=== PATIENT | female | born 1940 | race Caucasian/White ===

== ENCOUNTER 2017-02-03 02:04 | Emergency (ER) | payer OTHER ==
[~2017-02-03] VITALS: Ht 167.6 cm; Wt 89.9 kg
[~2017-02-03 02:04] MED LIST: ALPR-411 PO; CRD200 PO; EFFSR150 PO; FLUT1INH INH; LEVO88TA3 PO; OXYC1TAB3 PO; SNG10 PO; TOPI25TA99 PO; TPM25 PO; VNTHFA/IN INH; WARF4TAB43 PO
[2017-02-03 02:10] VITALS: TEMP 36.4; Ht 167.6 cm; Wt 89.9 kg
[2017-02-03] MEDS ORDERED: ONDANSETRON INJ 2 MG/ML 2 ML VIAL IV STA (02:27)
[2017-02-03] MEDS ORDERED: MoRPHine SULFATE 4 MG/ML 1 ML CARP\\VIAL IV STA (02:27)
--- NOTE | 2017-02-03 02:28 | EMERGENCY ROOM VISIT NOTE ---
History Report prepared by Violet: Kwame Cabrera Under the Supervision of: Dr. Pritesh Bernabe D.O. First contact with patient: 02:17 Chief Complaint: FLANK PAIN Stated Complaint: BACK AND SIDE PAIN History of Present Illness The patient is a 76 year old female who presents to the Emergency Room with complaints of constant right sided flank pain that began yesterday, one day prior to arrival. She rates her current pain as a 8/10 in severity. The patient states that the pain radiates into her right lower abdominal quadrants. She is also complaining of experiencing some nausea throughout the day today. She denies any blood in the urine, or any vomiting lately. She also denies any history of kidney disease or abdominal aortic aneurysm. 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 A total of ten systems were reviewed and were otherwise negative. Past Medical & Surgical Medical Problems: (1) ARF (acute renal failure) (2) Asthma, moderate persistent (3) Atrial fibrillation and flutter (4) CKD (chronic kidney disease), stage III (5) Depression (6) Diet-controlled diabetes mellitus (7) HTN (hypertension) (8) Hypothyroidism (9) Meniere disease (10) RADHA (obstructive sleep apnea) Surgical Problems: (1) H/O sinus surgery (2) History of laminectomy (3) History of repair of left rotator cuff (4) Hx of neck surgery Family History Diabetes mellitus Social History Smoking Status: Former Smoker Alcohol Use: none Drug Use: none Marital Status: Housing Status: lives with family Occupation Status: employed Current/Historical Medications Scheduled Amiodarone HCl (Amiodarone HCl), 200 MG PO QAM Ferrous Sulfate (Ferrous Sulfate), 325 MG PO DAILY Fluticasone Furoate-Vilanterol (Breo Ellipta), 1 PUFF INH DAILY Folic Acid (Folvite), 1 MG PO DAILY Lansoprazole (Prevacid), 30 MG PO HS Levothyroxine Sodium (Levothyroxine Sodium), 88 MCG PO QAM Montelukast Sod (Montelukast Sodium), 10 MG PO QAM Topiramate (Topamax ), 25 MG PO QAM Topiramate (Topiramate), 12.5 MG PO HS Venlafaxine Hcl (Effexor Extended Rel), 150 MG PO QAM Warfarin Sodium (Warfarin Sodium), 2 MG PO DAILY Scheduled PRN Albuterol Hfa (Ventolin Hfa), 2 PUFFS INH QID PRN for SOB/Wheezing Alprazolam (Alprazolam), 0.5 MG PO TID PRN for Anxiety Allergies Coded Allergies: Sulfa Drugs (Verified Allergy, Severe, SEVERE REACTION, RASH AND HIVES, 08/10) Celecoxib (Verified Allergy, Unknown, Rash/Hives/Itching., 02/03/17) Cephalexin (Verified Allergy, Unknown, Rash/Hives/Itching., 02/03/17) Dexamethasone (Verified Allergy, Unknown, Steroid psychosis., 02/03/17) Furosemide (Verified Allergy, Unknown, Rash/Hives/Itching., 02/03/17) Gabapentin (Verified Allergy, Unknown, Rash/Hives/Itching., 02/03/17) Meclizine (Verified Allergy, Unknown, Unknown, 02/03/17) Methylprednisolone (Verified Allergy, Unknown, Rash/Hives/Itching., ) Penicillins (Verified Allergy, Unknown, Unknown., 02/03/17) Prednisone (Verified Allergy, Unknown, Rash/Hives/Itching., 02/03/17) Pregabalin (Verified Allergy, Unknown, Rash/Hives/Itching., 02/03/17) Vancomycin (Verified Allergy, Unknown, Jodi syn. ., 02/03/17) Physical Exam Vital Signs Date Time Temp Pulse Resp B/P (MAP) Pulse Ox O2 Delivery O2 Flow Rate FiO2 02/03/17 04:15 60 20 156/74 97 Room Air 02/03/17 03:34 63 15 94 02/03/17 03:23 173/85 02/03/17 03:10 63 02/03/17 03:04 63 17 97 02/03/17 02:10 36.4 65 16 187/80 99 Room Air Physical Exam GENERAL: Awake, alert, well-appearing, in no distress HENT: Normocephalic, atraumatic. Oropharynx unremarkable. EYES: Normal conjunctiva. Sclera non-icteric. NECK: Supple. No nuchal rigidity. FROM. No JVD. RESPIRATORY: Clear to auscultation. CARDIAC: Regular rate, normal rhythm. Extremities warm and well perfused. Pulses equal. ABDOMEN: Soft, non-distended. No tenderness to palpation. No rebound or guarding. No masses. RECTAL: Deferred. MUSCULOSKELETAL: Chest examination reveals no tenderness. The back is symmetrical on inspection without obvious abnormality. There is no CVA tenderness to palpation. No joint edema. LOWER EXTREMITIES: Calves are equal size bilaterally and non-tender. No edema. No discoloration. NEURO: Normal sensorium. No sensory or motor deficits noted. SKIN: No rash or jaundice noted. Medical Decision & Procedures ER Provider Diagnostic Interpretation: X ray results as stated below per my interpretation and radiologist interpretation. Other radiology results as stated below per my review and radiologist interpretation CT ABDOMEN & PELVIS: Noncontrast study Prior head CT , 02/18/16 No obstructing urinary tract calculi or hydronephrosis. Stable bilateral renal lesions, most are low-density. Normal appendix. Colonic diverticulosis. No free air, free fluid. No bowel obstruction. Query sludge in the gallbladder. Lumbar laminectomies as on prior Radiologist: Martha Martínez M.D. Laboratory Results 02/03/17 02:45 Red Blood Count 4.14, Mean Corpuscular Volume 84.5, Mean Corpuscular Hemoglobin 27.1, Mean Corpuscular Hemoglobin Concent 32.0, Mean Platelet Volume 9.8, Neutrophils (%) (Auto) 59.2, Lymphocytes (%) (Auto) 23.3, Monocytes (%) (Auto) 11.3, Eosinophils (%) (Auto) 5.6, Basophils (%) (Auto) 0.5, Neutrophils # (Auto ) 5.01, Lymphocytes # (Auto) 1.97, Monocytes # (Auto) 0.96, Eosinophils # (Auto ) 0.47, Basophils # (Auto) 0.04 02/03/17 02:45 Test 02/03/17 02:45 02/03/17 04:08 White Blood Count 8.46 K/uL (4.8-10.8) Red Blood Count 4.14 M/uL (4.2-5.4) Hemoglobin 11.2 g/dL (12.0-16.0) Hematocrit 35.0 % (37-47) Mean Corpuscular Volume 84.5 fL (80-100) Mean Corpuscular Hemoglobin 27.1 pg (25-34) Mean Corpuscular Hemoglobin Concent 32.0 g/dl (32-36) Platelet Count 260 K/uL (130-400) Mean Platelet Volume 9.8 fL (7.4-10.4) Neutrophils (%) (Auto) 59.2 % Lymphocytes (%) (Auto) 23.3 % Monocytes (%) (Auto) 11.3 % Eosinophils (%) (Auto) 5.6 % Basophils (%) (Auto) 0.5 % Neutrophils # (Auto) 5.01 K/uL (1.4-6.5) Lymphocytes # (Auto) 1.97 K/uL (1.2-3.4) Monocytes # (Auto) 0.96 K/uL (0.11-0.59) Eosinophils # (Auto) 0.47 K/uL (0-0.5) Basophils # (Auto) 0.04 K/uL (0-0.2) RDW Standard Deviation 45.6 fL (36.4-46.3) RDW Coefficient of Variation 14.8 % (11.5-14.5) Immature Granulocyte % (Auto) 0.1 % Immature Granulocyte # (Auto) 0.01 K/uL (0.00-0.02) Prothrombin Time 22.6 SECONDS (9.0-12.0) Prothromb Time International Ratio 2.0 (0.9-1.1) Anion Gap 10.0 mmol/L (3-11) Est Creatinine Clear Calc Drug Dose 31.8 ml/min Estimated GFR () 33.4 Estimated GFR (Non- 28.8 BUN/Creatinine Ratio 21.6 (10-20) Calcium Level 8.3 mg/dl (8.5-10.1) Total Bilirubin 0.2 mg/dl (0.2-1) Direct Bilirubin < 0.1 mg/dl (0-0.2) Aspartate Amino Transf (AST/SGOT) 23 U/L (15-37) Alanine Aminotransferase (ALT/SGPT) 23 U/L (12-78) Alkaline Phosphatase 154 U/L (45-117) Total Protein 7.2 gm/dl (6.4-8.2) Albumin 3.6 gm/dl (3.4-5.0) Urine Color YELLOW Urine Appearance CLOUDY (CLEAR) Urine pH 5.0 (4.5-7.5) Urine Specific [place] 1.018 (1.000-1.030) Urine Protein NEG (NEG) Urine Glucose (UA) NEG (NEG) Urine Ketones NEG (NEG) Urine Occult Blood 1+ (NEG) Urine Nitrite NEG (NEG) Urine Bilirubin NEG (NEG) Urine Urobilinogen NEG (NEG) Urine Leukocyte Esterase LARGE (NEG) Urine WBC (Auto) >30 /hpf (0-5) Urine RBC (Auto) 0-4 /hpf (0-4) Urine Hyaline Casts (Auto) 1-5 /lpf (0-5) Urine Epithelial Cells (Auto) >30 /lpf (0-5) Urine Bacteria (Auto) NEG (NEG) Laboratory results reviewed by me Medications Administered Medications (Trade) Dose Ordered Sig/Felipe Route Start Time Stop Time Status Last Admin Dose Admin Ondansetron HCl (Zofran Inj) 4 mg NOW STAT IV 02/03/17 02:27 02/03/17 02:29 DC 02/03/17 02:53 4 MG Morphine Sulfate (MoRPHine SULFATE INJ) 4 mg NOW STAT IV 02/03/17 02:27 02/03/17 02:29 DC 02/03/17 02:53 4 MG Acetaminophen/ Hydrocodone Bitart ([place] 5/325 Tab) 1 tab NOW STAT PO 02/03/17 04:25 02/03/17 04:26 DC 02/03/17 04:33 1 TAB Ciprofloxacin (Cipro Tab) 500 mg NOW STAT PO 02/03/17 04:50 02/03/17 04:52 DC 02/03/17 04:58 500 MG ED Course 0222: The patient was evaluated in room A12B. A complete history and physical exam was performed. 0227: Ordered Morphine Sulfate 4 mg IV, Zofran 4 mg IV. 0425: Ordered Hydrocodone Bitart/Acetaminophen 1 tablet PO. 0450: Ordered Ciprofloxacin 500 mg PO. 0500: I reevaluated the patient at this time, she was resting in no distress. I discussed results and discharge instructions with her: She verbalized understanding and agreement. The patient is ready for discharge. Medical Decision Blood Pressure Screening: The patient was found to have a slightly elevated blood pressure due to pain and circumstances. I do not believe that the patient requires hypertension monitoring. Medication Reconciliation: I attest that I have personally reviewed the patient' s current medication list. Differential Diagnosis includes; kidney stone, pyelonephritis, urinary tract infection. Rule Out: abdominal aortic aneurysm. Patient resting in no distress on repeat examination patient has a urinary tract infection or CAT scan was negative she is on Coumadin and started Cipro on her due to multiple allergies as well as [place]. She is aware that Cipro can raise her Coumadin level and I've advised her to monitor that. Patient has no signs of an abdominal aortic aneurysm as well as no signs of pyelonephritis or appendicitis or ureterolithiasis at this time. Impression Primary Impression: Right flank pain Additional Impression: Urinary tract infection Scribe Attestation The scribe's documentation has been prepared under my direction and personally reviewed by me in its entirety. I confirm that the note above accurately reflects all work, treatment, procedures, and medical decision making performed by me. Departure Information Dispostion Home / Self-Care Prescriptions Ciprofloxacin Hcl (CIPRO) 500 Mg Tab 500 MG PO BID, #14 TAB Prov: Pritesh Bernabe, DO 02/03/17 Hydrocodone/Acetaminophen 5MG/325MG ([place] 5MG/325MG) Tab 1 TABLET PO Q6H Y for Pain, #10 TAB Prov: Pritesh Bernabe, DO 02/03/17 Referrals Florentin Calvo D.O. (PCP) Patient Instructions ED Flank Pain Uncertain Cause, ED UTI Cystitis Female, My [facility] Additional Instructions Take Cipro as instructed,watch your Coumadin level return for increased pain nausea vomiting fever or any concerns Problem Qualifiers
[2017-02-03 03:01] LABS: BASO % 0.5 %; BASO ABS # 0.04 K/uL (0-0.2); COMPLETE YES; EOS % 5.6 %; IG% 0.1 %; LYMPH % 23.3 %; LYMPH ABS # 1.97 K/uL (1.2-3.4); MEAN CELL VOLUME 84.5 fL (80-100); MEAN CORPUSCULAR HEMOGLOBIN 27.1 pg (25-34); MEAN PLATELET VOLUME 9.8 fL (7.4-10.4); MONO % 11.3 %; NEUT % 59.2 %; PLATELET COUNT 260 K/uL (130-400); RED BLOOD COUNT 4.14 M/uL (4.2-5.4); WHITE BLOOD COUNT 8.46 K/uL (4.8-10.8)
[2017-02-03 03:10] LABS: PROTHROMBIN TIME (PATIENT) 22.6 SECONDS (9.0-12.0)
[2017-02-03 03:24] LABS: ALT/SGPT 23 U/L (12-78); AST/SGOT 23 U/L (15-37); BLOOD UREA NITROGEN 37 mg/dl (7-18); BUN/CREATININE RATIO 21.6 (10-20); CALCIUM 8.3 mg/dl (8.5-10.1); CARBON DIOXIDE 23 mmol/L (21-32); CHLORIDE 111 mmol/L (98-107); GLUCOSE 106 mg/dl (70-99); POTASSIUM 4.4 mmol/L (3.5-5.1); SODIUM 144 mmol/L (136-145)
[2017-02-03] MEDS ORDERED: FOLI1TAB7 PO (03:25)
[2017-02-03] MEDS ORDERED: LANS30CA63 PO (03:25)
[2017-02-03] MEDS ORDERED: FRRS300 PO (03:25)
[2017-02-03 03:26] LABS: ALKALINE PHOSPHATASE 154 U/L (45-117)
[2017-02-03] MEDS ORDERED: HYDROCODONE/ACETAMOPHEN 5/325MG TAB PO STA (04:25)
[2017-02-03 04:28] LABS: URINE APPEARANCE CLOUDY (CLEAR); URINE BILIRUBIN NEG (NEG); URINE COLOR YELLOW; URINE EPITHELIAL CELL AUTO >30 /lpf (0-5); URINE NITRITE NEG (NEG); URINE SPECIFIC GRAVITY 1.018 (1.000-1.030); UROBILINOGEN NEG (NEG); ZZUR CULT IF INDIC CLEAN CATCH YES
[2017-02-03 04:29] LABS: MANUAL MICROSCOPIC REQUIRED? NO; REVIEW REQ? NO
[2017-02-03] MEDS ORDERED: CIPROFLOXACIN 500 MG TAB PO STA (04:50)
[2017-02-03] MEDS ORDERED: HYDR-5688 PO (05:06)
[2017-02-03] MEDS ORDERED: CIPR-255 PO (05:06)
[2017-02-03 05:32] VITALS: BP 171/72; PULSE 63; O2SAT 95
--- NOTE | 2017-02-03 06:57 | DIAGNOSTIC IMAGING REPORT ---
ABDOMEN AND PELVIS CT WITHOUT CONTRAST CT DOSE: 1316.89 mGy.cm HISTORY: Pain pain TECHNIQUE: Multiaxial CT images of the abdomen and pelvis were performed without the use of intravenous and oral contrast according to the standard department stone protocol. COMPARISON STUDY: 11/11/2014 FINDINGS: Lung bases are clear. Liver spleen and pancreas are unremarkable. Multiple bilateral renal cysts are present unchanged in the prior exam. No evidence for an obstructing urinary tract calculus. Mild fatty replacement of the pancreas. Nonobstructive bowel pattern. Bladder is midline. There are no contained calcifications. Nonobstructive bowel pattern. IMPRESSION: Several stable renal cysts. No evidence for an obstructing urinary tract calculus. Nonobstructive bowel pattern. Electronically signed by: Doe Cyr M.D. 02/03/2017 6:56 AM Dictated Date/Time: 02/03/2017 6:52 AM
[2017-02-19] MEDS ORDERED: PRED1SUS3 OPR (07:03)
[2017-06-18] MEDS ORDERED: TPRSR25 PO (14:52)
[2017-06-27] MEDS ORDERED: METO25TA3 PO (03:39)
[2017-06-27] MEDS ORDERED: TPRSR/25 PO (03:40)
== END 2017-02-03 05:33 | disposition home or self-care (01) ==
LOC: C.EDB 02:05 → C.EDA 05:33
DX: R10.84 Generalized abdominal pain (principal); N39.0 Urinary tract infection, site not specified; N17.9 Acute kidney failure, unspecified; J45.40 Moderate persistent asthma, uncomplicated; I48.91 Unspecified atrial fibrillation; N18.3 Chronic kidney disease, stage 3 (moderate); E11.9 Type 2 diabetes mellitus without complications; I10 Essential (primary) hypertension; E03.9 Hypothyroidism, unspecified; H81.09 Meniere's disease, unspecified ear; G47.33 Obstructive sleep apnea (adult) (pediatric); Z83.3 Family history of diabetes mellitus; Z87.891 Personal history of nicotine dependence; Z79.01 Long term (current) use of anticoagulants; Z51.81 Encounter for therapeutic drug level monitoring

== ENCOUNTER 2017-02-04 06:54 | Emergency (ER) | payer OTHER ==
[~2017-02-04] VITALS: Ht 167.6 cm; Wt 88.3 kg
[~2017-02-04 06:54] MED LIST changes: +CIPR-255 PO; +FOLI1TAB7 PO; +FRRS300 PO; +HYDR-5688 PO; +LANS30CA63 PO; -OXYC1TAB3 PO
[2017-02-04 06:59] VITALS: TEMP 36.4; Ht 167.6 cm; Wt 88.3 kg
[2017-02-04] MEDS ORDERED: MoRPHine SULFATE 4 MG/ML 1 ML CARP\\VIAL IV STA (07:20)
--- NOTE | 2017-02-04 07:27 | EMERGENCY ROOM VISIT NOTE ---
History Report prepared by Violet: Kwame Cabrera Under the Supervision of: Dr. Don Puentes D.O. First contact with patient: 07:04 Chief Complaint: FLANK PAIN Stated Complaint: PAIN RT SIDE INTO BACK AND FRONT History of Present Illness The patient is a 76 year old female who presents to the Emergency Room with complaints of persistent right lower flank pain that began on Friday, three days prior to arrival. The patient was in the Emergency Department on Friday, two days ago for similar complaints. She notes that her right flank pain is also radiating into her right lower abdominal quadrant. She notes that she is seeing a physician for acute renal failure. The patient is on Coumadin for atrial fibrillation. 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 A total of 10 systems reviewed and were otherwise negative. Past Medical & Surgical Medical Problems: (1) ARF (acute renal failure) (2) Asthma, moderate persistent (3) Atrial fibrillation and flutter (4) CKD (chronic kidney disease), stage III (5) Depression (6) Diet-controlled diabetes mellitus (7) HTN (hypertension) (8) Hypothyroidism (9) Meniere disease (10) RADHA (obstructive sleep apnea) Surgical Problems: (1) H/O sinus surgery (2) History of laminectomy (3) History of repair of left rotator cuff (4) Hx of neck surgery Family History Diabetes mellitus Social History Smoking Status: Never Smoker Alcohol Use: none Drug Use: none Marital Status: Housing Status: lives with family Occupation Status: employed Current/Historical Medications Scheduled Amiodarone HCl (Amiodarone HCl), 200 MG PO QAM Ciprofloxacin Hcl (Cipro), 500 MG PO BID Ferrous Sulfate (Ferrous Sulfate), 325 MG PO DAILY Fluticasone Furoate-Vilanterol (Breo Ellipta), 1 PUFF INH DAILY Folic Acid (Folvite), 1 MG PO DAILY Lansoprazole (Prevacid), 30 MG PO HS Levothyroxine Sodium (Levothyroxine Sodium), 88 MCG PO QAM Montelukast Sod (Montelukast Sodium), 10 MG PO QAM Topiramate (Topamax ), 25 MG PO QAM Topiramate (Topiramate), 12.5 MG PO HS Venlafaxine Hcl (Effexor Extended Rel), 150 MG PO QAM Warfarin Sodium (Warfarin Sodium), 2 MG PO DAILY Scheduled PRN Albuterol Hfa (Ventolin Hfa), 2 PUFFS INH QID PRN for SOB/Wheezing Alprazolam (Alprazolam), 0.5 MG PO TID PRN for Anxiety Hydrocodone/Acetaminophen 5MG/325MG ([place] 5MG/325MG), 1 TABLET PO Q6H PRN for Pain Allergies Coded Allergies: Sulfa Drugs (Verified Allergy, Severe, SEVERE REACTION, RASH AND HIVES, ) Celecoxib (Verified Allergy, Unknown, Rash/Hives/Itching., 02/04/17) Cephalexin (Verified Allergy, Unknown, Rash/Hives/Itching., 02/04/17) Dexamethasone (Verified Allergy, Unknown, Steroid psychosis., 02/04/17) Furosemide (Verified Allergy, Unknown, Rash/Hives/Itching., 02/04/17) Gabapentin (Verified Allergy, Unknown, Rash/Hives/Itching., 02/04/17) Meclizine (Verified Allergy, Unknown, Unknown, 02/04/17) Methylprednisolone (Verified Allergy, Unknown, Rash/Hives/Itching., ) Penicillins (Verified Allergy, Unknown, Unknown., 02/04/17) Prednisone (Verified Allergy, Unknown, Rash/Hives/Itching., 02/04/17) Pregabalin (Verified Allergy, Unknown, Rash/Hives/Itching., 02/04/17) Vancomycin (Verified Allergy, Unknown, Jodi syn. ., 02/04/17) Physical Exam Vital Signs Date Time Temp Pulse Resp B/P (MAP) Pulse Ox O2 Delivery O2 Flow Rate FiO2 02/04/17 09:02 60 16 144/79 94 Room Air 02/04/17 06:59 36.4 64 18 118/65 96 Room Air Physical Exam CONSTITUTIONAL/VITAL SIGNS: Reviewed / noted above. GENERAL: Non-toxic in appearance. INTEGUMENTARY: Warm, dry, and [place]. HEAD: Normocephalic. EYES: without scleral icterus or trauma. ENT/OROPHARYNX: clear and moist. LYMPHADENOPATHY/NECK: Is supple without lymphadenopathy or meningismus. RESPIRATORY: Lungs clear and equal. CARDIOVASCULAR: Regular rate and rhythm. GI/ABDOMEN: Soft and nontender. No organomegaly or pulsatile mass. No rebound or guarding. Normal bowel sounds. EXTREMITIES: Warm and well perfused. BACK: No CVA tenderness. NEUROLOGICAL: Intact without focal deficits. PSYCHIATRIC: normal affect. MUSCULOSKELETAL: Normally developed with good muscle tone. Medical Decision & Procedures Laboratory Results 02/04/17 07:30 Red Blood Count 4.33, Mean Corpuscular Volume 86.4, Mean Corpuscular Hemoglobin 27.3, Mean Corpuscular Hemoglobin Concent 31.6, Mean Platelet Volume 10.3, Neutrophils (%) (Auto) 58.9, Lymphocytes (%) (Auto) 23.4, Monocytes (%) (Auto) 10.7, Eosinophils (%) (Auto) 6.1, Basophils (%) (Auto) 0.6, Neutrophils # (Auto ) 3.98, Lymphocytes # (Auto) 1.58, Monocytes # (Auto) 0.72, Eosinophils # (Auto ) 0.41, Basophils # (Auto) 0.04 02/04/17 07:30 Test 02/04/17 07:30 White Blood Count 6.75 K/uL (4.8-10.8) Red Blood Count 4.33 M/uL (4.2-5.4) Hemoglobin 11.8 g/dL (12.0-16.0) Hematocrit 37.4 % (37-47) Mean Corpuscular Volume 86.4 fL (80-100) Mean Corpuscular Hemoglobin 27.3 pg (25-34) Mean Corpuscular Hemoglobin Concent 31.6 g/dl (32-36) Platelet Count 262 K/uL (130-400) Mean Platelet Volume 10.3 fL (7.4-10.4) Neutrophils (%) (Auto) 58.9 % Lymphocytes (%) (Auto) 23.4 % Monocytes (%) (Auto) 10.7 % Eosinophils (%) (Auto) 6.1 % Basophils (%) (Auto) 0.6 % Neutrophils # (Auto) 3.98 K/uL (1.4-6.5) Lymphocytes # (Auto) 1.58 K/uL (1.2-3.4) Monocytes # (Auto) 0.72 K/uL (0.11-0.59) Eosinophils # (Auto) 0.41 K/uL (0-0.5) Basophils # (Auto) 0.04 K/uL (0-0.2) RDW Standard Deviation 46.8 fL (36.4-46.3) RDW Coefficient of Variation 14.9 % (11.5-14.5) Immature Granulocyte % (Auto) 0.3 % Immature Granulocyte # (Auto) 0.02 K/uL (0.00-0.02) Anion Gap 11.0 mmol/L (3-11) Est Creatinine Clear Calc Drug Dose 33.5 ml/min Estimated GFR () 35.9 Estimated GFR (Non- 31.0 BUN/Creatinine Ratio 18.8 (10-20) Calcium Level 8.8 mg/dl (8.5-10.1) Total Bilirubin 0.3 mg/dl (0.2-1) Direct Bilirubin < 0.1 mg/dl (0-0.2) Aspartate Amino Transf (AST/SGOT) 22 U/L (15-37) Alanine Aminotransferase (ALT/SGPT) 24 U/L (12-78) Alkaline Phosphatase 131 U/L (45-117) Total Creatine Kinase 76 U/L (26-192) Creatine Kinase MB 1.3 ng/ml (0.5-3.6) Creatine Kinase MB Ratio 1.7 (0-3.0) Total Protein 7.2 gm/dl (6.4-8.2) Albumin 3.5 gm/dl (3.4-5.0) Lipase 89 U/L (73-393) Laboratory results as stated above per my review. Medications Administered Medications (Trade) Dose Ordered Sig/Felipe Route Start Time Stop Time Status Last Admin Dose Admin Morphine Sulfate (MoRPHine SULFATE INJ) 4 mg NOW STAT IV 02/04/17 07:20 02/04/17 07:24 DC 02/04/17 07:30 4 MG ED Course 0715: Previous medical records were reviewed. The patient was evaluated in room B2. A complete history and physical examination was performed. 07: Ordered Morphine Sulfate 4 mg IV. 0947: On reevaluation, the patient is resting in bed comfortably. I discussed the results and findings with the patient. She verbalized agreement of the treatment plan. The patient was discharged home. Medical Decision Differential diagnosis: Etiologies such as appendicitis, diverticulitis, PUD, biliary pathology, UTI, pancreatitis, obstruction, mesenteric ischemia, aortic pathology, infections, inflammatory bowel disease, renal colic, as well as others were entertained. This is a 76-year-old female who presents to the ED with a chief complaint of right-sided flank pain. The patient was seen for the same a little over 24 hours ago. At that time, she had a CBC, chemistry panel, urinalysis and a CAT scan of her abdomen. Culture for urine is pending. She was placed on Cipro and hydrocodone. The patient states that her pain continues. She came for reevaluation. The patient's exam was unremarkable. She did not have any rashes. She was told to watch out for a rash over the next 24-48 hours. She could have shingles. Her repeat blood work was unremarkable. Her CBC was normal. The BUN and creatinine are baseline. Metabolic panel was unremarkable. The patient was treated with IV morphine. She did have some improved pain management with this. She was told to follow-up with her PCP. Pain management may be beneficial. The patient was told to watch for rash over the next day or 2 and to see her doctor if she develops shingles. Impression Primary Impression: Right flank pain Scribe Attestation The scribe's documentation has been prepared under my direction and personally reviewed by me in its entirety. I confirm that the note above accurately reflects all work, treatment, procedures, and medical decision making performed by me. Departure Information Dispostion Home / Self-Care Referrals Florentin Calvo D.O. (PCP) Patient Instructions My [facility] Additional Instructions Follow-up with your doctors for continued symptoms. Pain management follow-up might be beneficial if pain persists. If you develop a rash, see your doctor for evaluation of shingles. Return for any concerns or worsening.
[2017-02-04 07:56] LABS: BASO % 0.6 %; BASO ABS # 0.04 K/uL (0-0.2); COMPLETE YES; EOS % 6.1 %; HEMATOCRIT 37.4 % (37-47); IG% 0.3 %; LYMPH % 23.4 %; LYMPH ABS # 1.58 K/uL (1.2-3.4); MEAN CELL VOLUME 86.4 fL (80-100); MEAN CORPUSCULAR HEMOGLOBIN 27.3 pg (25-34); MEAN CORPUSCULAR HGB CONC 31.6 g/dl (32-36); MEAN PLATELET VOLUME 10.3 fL (7.4-10.4); MONO % 10.7 %; NEUT % 58.9 %; PLATELET COUNT 262 K/uL (130-400); RED BLOOD COUNT 4.33 M/uL (4.2-5.4); WHITE BLOOD COUNT 6.75 K/uL (4.8-10.8)
[2017-02-04 08:12] LABS: CALCIUM 8.8 mg/dl (8.5-10.1)
[2017-02-04 08:13] LABS: ALT/SGPT 24 U/L (12-78); BLOOD UREA NITROGEN 30 mg/dl (7-18); BUN/CREATININE RATIO 18.8 (10-20); CARBON DIOXIDE 22 mmol/L (21-32); CHLORIDE 109 mmol/L (98-107); GLUCOSE 112 mg/dl (70-99); POTASSIUM 4.6 mmol/L (3.5-5.1); SODIUM 142 mmol/L (136-145)
[2017-02-04 08:18] LABS: ALKALINE PHOSPHATASE 131 U/L (45-117); AST/SGOT 22 U/L (15-37); CKMB/CK RATIO 1.7 (0-3.0)
[2017-02-04 09:59] VITALS: BP 130/67; PULSE 61; O2SAT 93
[2017-02-19] MEDS ORDERED: PRED1SUS3 OPR (07:03)
[2017-06-18] MEDS ORDERED: TPRSR25 PO (14:52)
[2017-06-27] MEDS ORDERED: METO25TA3 PO (03:39)
[2017-06-27] MEDS ORDERED: TPRSR/25 PO (03:40)
== END 2017-02-04 10:00 | disposition home or self-care (01) ==
LOC: C.EDB 06:56
DX: R10.30 Lower abdominal pain, unspecified (principal); I12.9 Hypertensive chronic kidney disease with stage 1 through stage 4 chronic kidney disease, or unspecified chronic kidney disease; N18.3 Chronic kidney disease, stage 3 (moderate); I48.92 Unspecified atrial flutter; E03.9 Hypothyroidism, unspecified; F32.9 Major depressive disorder, single episode, unspecified; I48.91 Unspecified atrial fibrillation; E11.9 Type 2 diabetes mellitus without complications; G47.33 Obstructive sleep apnea (adult) (pediatric); Z98.890 Other specified postprocedural states; Z79.01 Long term (current) use of anticoagulants; Z79.899 Other long term (current) drug therapy; Z88.0 Allergy status to penicillin; Z88.2 Allergy status to sulfonamides; Z88.8 Allergy status to other drugs, medicaments and biological substances; Z83.3 Family history of diabetes mellitus

== ENCOUNTER 2017-02-17 07:19 | Emergency (ER) | payer OTHER ==
[2017-02-17 07:27] VITALS: TEMP 36.4
[2017-02-17] MEDS ORDERED: SODIUM CHLORIDE 0.9% 1000ML 1,000 ML IV STA (07:33)
[2017-02-17] MEDS ORDERED: ONDANSETRON INJ 2 MG/ML 2 ML VIAL IV STA (07:33)
--- NOTE | 2017-02-17 07:35 | EMERGENCY ROOM VISIT NOTE ---
History Report prepared by Violet: Patricia Joe Under the Supervision of: Dr. Carlos Lizama D.O. First contact with patient: 07:25 Chief Complaint: ABDOMINAL PAIN Stated Complaint: STOMACH PAIN,NECK PAIN,SHOULDER PAIN DOWN LEFT ARM History of Present Illness The patient is a 76 year old female who presents to the Emergency Room with complaints of constant abdominal pain beginning 10 days prior to arrival. She rates her pain as 8/10 in severity. The patient was seen in the ED for this abdominal pain and was told had a UTI. She saw her PCP the next day and was told has no UTI but does have shingles. The patient states that her shingles rash did not appear until 5 days after the pain started. She is taking Oxycodone for the pain and Valtrex for the shingles. The patient notes a history of atrial fibrillation. She did experiencing neck pain that radiated into her eft arm pain last night. The patient denies nausea, vomiting, diarrhea , chest pain, trouble breathing, midline back pain, or abdominal surgery history. She is on Coumadin. Source of History: patient Onset: 10 days [employer] Position: abdomen Symptom Intensity: 8/10 Timing: constant Associated Symptoms: + neck pain, + rash, No chest pain, No nausea, No vomiting, No diarrhea Review of Systems See HPI for pertinent positives & negatives. A total of 10 systems reviewed and were otherwise negative. Past Medical & Surgical Medical Problems: (1) ARF (acute renal failure) (2) Asthma, moderate persistent (3) Atrial fibrillation and flutter (4) CKD (chronic kidney disease), stage III (5) Depression (6) Diet-controlled diabetes mellitus (7) HTN (hypertension) (8) Hypothyroidism (9) Meniere disease (10) RADHA (obstructive sleep apnea) Surgical Problems: (1) H/O sinus surgery (2) History of laminectomy (3) History of repair of left rotator cuff (4) Hx of neck surgery Family History Diabetes mellitus Social History Smoking Status: Never Smoker Alcohol Use: none Drug Use: none Marital Status: Housing Status: lives with family Occupation Status: employed Current/Historical Medications Scheduled Amiodarone HCl (Amiodarone HCl), 200 MG PO QAM Ciprofloxacin Hcl (Cipro), 500 MG PO BID Ciprofloxacin Hcl (Cipro), 500 MG PO BID Ferrous Sulfate (Ferrous Sulfate), 325 MG PO DAILY Fluticasone Furoate-Vilanterol (Breo Ellipta), 1 PUFF INH DAILY Folic Acid (Folvite), 1 MG PO DAILY Lansoprazole (Prevacid), 30 MG PO HS Levothyroxine Sodium (Levothyroxine Sodium), 88 MCG PO QAM Montelukast Sod (Montelukast Sodium), 10 MG PO QAM Topiramate (Topamax ), 25 MG PO QAM Topiramate (Topiramate), 12.5 MG PO HS Venlafaxine Hcl (Effexor Extended Rel), 150 MG PO QAM Warfarin Sodium (Warfarin Sodium), 2 MG PO DAILY Scheduled PRN Albuterol Hfa (Ventolin Hfa), 2 PUFFS INH QID PRN for SOB/Wheezing Alprazolam (Alprazolam), 0.5 MG PO TID PRN for Anxiety Hydrocodone/Acetaminophen 5MG/325MG ([place] 5MG/325MG), 1 TABLET PO Q6H PRN for Pain Allergies Coded Allergies: Sulfa Drugs (Verified Allergy, Severe, SEVERE REACTION, RASH AND HIVES, ) Celecoxib (Verified Allergy, Unknown, Rash/Hives/Itching., 02/04/17) Cephalexin (Verified Allergy, Unknown, Rash/Hives/Itching., 02/04/17) Dexamethasone (Verified Allergy, Unknown, Steroid psychosis., 02/04/17) Furosemide (Verified Allergy, Unknown, Rash/Hives/Itching., 02/04/17) Gabapentin (Verified Allergy, Unknown, Rash/Hives/Itching., 02/04/17) Meclizine (Verified Allergy, Unknown, Unknown, 02/04/17) Methylprednisolone (Verified Allergy, Unknown, Rash/Hives/Itching., ) Penicillins (Verified Allergy, Unknown, Unknown., 02/04/17) Prednisone (Verified Allergy, Unknown, Rash/Hives/Itching., 02/04/17) Pregabalin (Verified Allergy, Unknown, Rash/Hives/Itching., 02/04/17) Vancomycin (Verified Allergy, Unknown, Jodi syn. ., 02/04/17) Physical Exam Vital Signs Date Time Temp Pulse Resp B/P (MAP) Pulse Ox O2 Delivery O2 Flow Rate FiO2 02/17/17 10:31 68 18 142/83 95 02/17/17 09:05 70 18 120/68 95 Room Air 02/17/17 07:49 67 20 145/79 96 Room Air 02/17/17 07:34 77 02/17/17 07:27 36.4 88 20 156/83 96 Room Air Physical Exam GENERAL: Patient is awake, alert, and in no acute distress. Patient is resting comfortably and showing no signs of anxiety EYES: The conjunctivae are clear. The pupils are round and reactive. EARS, NOSE, MOUTH AND THROAT: The nose is without any evidence of any deformity. Mucous membranes are moist tongue is midline NECK: The neck is nontender and supple. RESPIRATORY: Normal respiratory effort is noted there is no evidence of wheezing rhonchi or rales CARDIOVASCULAR: Regular rate and rhythm noted there no murmurs rubs or gallops normal S1 normal S2 GASTROINTESTINAL: The abdomen is soft. Bowel sounds are present in all quadrants. Abdomen is mildly distended with tenderness in the right upper quadrant to palpation. No guarding or rigidity noted. BACK: No midline tenderness or or step-off noted range of motion in flexion extension as well as rotation no signs of muscle spasm noted MUSCULOSKELETAL/EXTREMITIES: There is no evidence of gross deformity full range of motion is noted in the hips and shoulders SKIN: Trace pitting edema bilaterally. Vesicular rash to right flank which appears to be healing and is consistent with recent diagnosis of shingles. NEUROLOGIC: Patient is awake alert and oriented x3 Medical Decision & Procedures ER Provider Diagnostic Interpretation: Radiology results as stated below per my review and radiologist interpretation: Right upper quadrant ultrasound GALLBLADDER-ABD LIMITED CLINICAL HISTORY: ABDOMINAL PAIN/GI pain. Nausea. TECHNIQUE: Ultrasound COMPARISON STUDY: 02/03/2017 FINDINGS: Combination of gallstones and sludge within the gallbladder lumen. Common bile duct 5 mm. Liver is uniform throughout. Pancreas is poorly seen due to overlying bowel content. Right kidney demonstrates several cysts. There is no evidence for renal hydronephrosis. IMPRESSION: 1. Combination of gallstones and sludge within the gallbladder lumen. 2. Normal caliber bile duct. 3. Several right renal cysts. Electronically signed by: Doe Cyr M.D. 02/17/2017 8:55 AM Dictated Date/Time: 02/17/2017 8:54 AM PA CHEST RADIOGRAPH AND UPRIGHT AND SUPINE AP RADIOGRAPHS OF THE ABDOMEN CLINICAL HISTORY: Abdominal pain. COMPARISON STUDY: Chest radiograph June 12, [address] of the abdomen and pelvis February 03, 2017. FINDINGS: Cervical spine fusion hardware is incidentally noted. Lung volumes are normal. There is no consolidation or evidence of pulmonary edema. Cardiomediastinal silhouette is stable. There is no free air. The bowel gas pattern is normal. There is a moderate amount of stool within the colon and rectum. IMPRESSION: 1. No free air or evidence of bowel obstruction. 2. Moderate amount of stool within the colon and rectum. 3. No acute cardiopulmonary findings. Electronically signed by: Otoniel Lemus M.D. 02/17/2017 8:30 AM Dictated Date/Time: 02/17/2017 8:28 AM Laboratory Results 02/17/17 07:50 Red Blood Count 4.42, Mean Corpuscular Volume 86.4, Mean Corpuscular Hemoglobin 27.4, Mean Corpuscular Hemoglobin Concent 31.7, Mean Platelet Volume 10.4, Neutrophils (%) (Auto) 61.1, Lymphocytes (%) (Auto) 22.5, Monocytes (%) (Auto) 11.6, Eosinophils (%) (Auto) 3.9, Basophils (%) (Auto) 0.5, Neutrophils # (Auto ) 5.16, Lymphocytes # (Auto) 1.90, Monocytes # (Auto) 0.98, Eosinophils # (Auto ) 0.33, Basophils # (Auto) 0.04 02/17/17 07:50 Test 02/17/17 00:00 02/17/17 07:50 Urine Color YELLOW Urine Appearance CLOUDY (CLEAR) Urine pH 5.0 (4.5-7.5) Urine Specific [place] 1.018 (1.000-1.030) Urine Protein NEG (NEG) Urine Glucose (UA) NEG (NEG) Urine Ketones NEG (NEG) Urine Occult Blood 1+ (NEG) Urine Nitrite NEG (NEG) Urine Bilirubin NEG (NEG) Urine Urobilinogen NEG (NEG) Urine Leukocyte Esterase LARGE (NEG) Urine WBC (Auto) >30 /hpf (0-5) Urine RBC (Auto) 0-4 /hpf (0-4) Urine Hyaline Casts (Auto) 1-5 /lpf (0-5) Urine Epithelial Cells (Auto) >30 /lpf (0-5) Urine Bacteria (Auto) 1+ (NEG) White Blood Count 8.44 K/uL (4.8-10.8) Red Blood Count 4.42 M/uL (4.2-5.4) Hemoglobin 12.1 g/dL (12.0-16.0) Hematocrit 38.2 % (37-47) Mean Corpuscular Volume 86.4 fL (80-100) Mean Corpuscular Hemoglobin 27.4 pg (25-34) Mean Corpuscular Hemoglobin Concent 31.7 g/dl (32-36) Platelet Count 258 K/uL (130-400) Mean Platelet Volume 10.4 fL (7.4-10.4) Neutrophils (%) (Auto) 61.1 % Lymphocytes (%) (Auto) 22.5 % Monocytes (%) (Auto) 11.6 % Eosinophils (%) (Auto) 3.9 % Basophils (%) (Auto) 0.5 % Neutrophils # (Auto) 5.16 K/uL (1.4-6.5) Lymphocytes # (Auto) 1.90 K/uL (1.2-3.4) Monocytes # (Auto) 0.98 K/uL (0.11-0.59) Eosinophils # (Auto) 0.33 K/uL (0-0.5) Basophils # (Auto) 0.04 K/uL (0-0.2) RDW Standard Deviation 47.2 fL (36.4-46.3) RDW Coefficient of Variation 15.0 % (11.5-14.5) Immature Granulocyte % (Auto) 0.4 % Immature Granulocyte # (Auto) 0.03 K/uL (0.00-0.02) Prothrombin Time 37.5 SECONDS (9.0-12.0) Prothromb Time International Ratio 3.3 (0.9-1.1) Activated Partial Thromboplast Time 54.7 SECONDS (21.0-31.0) Partial Thromboplastin Ratio 2.1 Anion Gap 11.0 mmol/L (3-11) Estimated GFR () 35.9 Estimated GFR (Non- 31.0 BUN/Creatinine Ratio 16.5 (10-20) Calcium Level 9.1 mg/dl (8.5-10.1) Total Bilirubin 0.2 mg/dl (0.2-1) Direct Bilirubin < 0.1 mg/dl (0-0.2) Aspartate Amino Transf (AST/SGOT) 24 U/L (15-37) Alanine Aminotransferase (ALT/SGPT) 24 U/L (12-78) Alkaline Phosphatase 151 U/L (45-117) Troponin I < 0.015 ng/ml (0-0.045) Total Protein 7.1 gm/dl (6.4-8.2) Albumin 3.5 gm/dl (3.4-5.0) Lipase 87 U/L (73-393) Laboratory results per my review. Medications Administered Medications (Trade) Dose Ordered Sig/Felipe Route Start Time Stop Time Status Last Admin Dose Admin Sodium Chloride 1,000 ml @ 999 mls/hr Q1H1M STAT IV 02/17/17 07:33 02/17/17 08:33 DC 02/17/17 07:51 999 MLS/HR Ondansetron HCl (Zofran Inj) 4 mg NOW STAT IV 02/17/17 07:33 02/17/17 07:35 DC 02/17/17 07:51 4 MG Morphine Sulfate (MoRPHine SULFATE INJ) 4 mg Q15M PRN IV 02/17/17 07:45 02/17/17 11:18 DC 02/17/17 08:03 2 MG Morphine Sulfate (MoRPHine SULFATE INJ) 2 mg STK-MED ONCE .ROUTE 02/17/17 07:57 02/17/17 07:58 DC 02/17/17 08:03 2 MG ECG Indication: abdominal pain Rate (beats per minute): 67 Rhythm: normal sinus Findings: no ectopy, other (no acute St abnormalities) Change: no significant change (from June 12, 2016) ED Course 0727: The patient was evaluated in room B5. A complete history and physical examination were performed. 0733: Zofran Inj 4 mg IV, Sodium Chloride 1,000 ml @ 999 mls/hr IV. 0745: Morphine Sulfate Inj 4 mg IV. 1009: Upon reevaluation, the patient is hemodynamically stable. I discussed the results and treatment plan with her. She verbalized agreement of the treatment plan. She was discharged home. Medical Decision Differential diagnosis: Etiologies such as appendicitis, diverticulitis, PUD, biliary pathology, UTI, pancreatitis, obstruction, mesenteric ischemia, aortic pathology, infections, inflammatory bowel disease, renal colic, as well as others were entertained. Medication Reconciliation: I attest that I have personally reviewed the patient' s current medications list. Blood pressure screening: Patient was found to have normal blood pressure on screening and does not require follow-up. The patient is a 76-year-old female who presented to the emergency department for an evaluation of right flank pain. The patient was seen in our facility twice for right flank pain. No definite cause for her pain could be found and on follow-up appointment with her family doctor she started having a rash consistent with shingles. The patient appears to have a healing rash on her right flank which is consistent with her diagnosis. She also continued to have right upper quadrant abdominal pain. The patient did not appear to have signs of cholecystitis on ultrasound or by laboratory results. I discussed the patient 's laboratory and radiographic studies with her. I reviewed the patient's previous electronic medical records. On her previous visit she was diagnosed with a urinary tract infection but her antibiotic was stopped after her culture did not reveal a cause of bacteria but rather Lactobacillus. The patient's urinalysis today did reveal some signs of infection with increased white blood cells but increased epithelial cells as well. The urine was sent for culture and the patient was started back on Cipro for urinary tract infection. She was encouraged to rest and avoid any strenuous activity. At this time I do feel her condition is likely consistent with her shingles. She was also encouraged to follow-up with her primary care physician as soon as possible but return to the emergency department immediately if symptoms change worsen or the need arises. I also discussed her case with her daughter who is a nurse. She was agreeable with the plan. Impression Primary Impression: Shingles (herpes zoster) polyneuropathy Additional Impressions: Gall stones UTI (urinary tract infection) Scribe Attestation The scribe's documentation has been prepared under my direction and personally reviewed by me in its entirety. I confirm that the note above accurately reflects all work, treatment, procedures, and medical decision making performed by me. Departure Information Dispostion Home / Self-Care Prescriptions Ciprofloxacin Hcl (CIPRO) 500 Mg Tab 500 MG PO BID, #14 TAB Prov: Carlos Lizama, 02/17/17 Referrals Florentin Calvo D.O. (PCP) Forms HOME CARE DOCUMENTATION FORM, IMPORTANT VISIT INFORMATION Patient Instructions Gallstones, My [facility], Shingles Herpes Zoster, Urinary Tract Infecs Women Additional Instructions Continue all medications as prescribed. Drink plenty clear liquids. Call your family to schedule a follow-up appointment for this week. Avoid any strenuous activity. Problem Qualifiers Additional Impressions: UTI (urinary tract infection) Urinary tract infection type: site unspecified Hematuria presence: without hematuria Qualified Codes: N39.0 - Urinary tract infection, site not specified
[2017-02-17] MEDS: MoRPHine SULFATE 4 MG/ML 1 ML CARP\\VIAL IV PRN ×2 (07:51→08:03)
[2017-02-17] MEDS ORDERED: MoRPHine SULFATE 2 MG/ML CARP ONE (07:57)
[2017-02-17 08:22] LABS: BASO % 0.5 %; BASO ABS # 0.04 K/uL (0-0.2); COMPLETE YES; EOS % 3.9 %; HEMATOCRIT 38.2 % (37-47); IG% 0.4 %; LYMPH % 22.5 %; MEAN CELL VOLUME 86.4 fL (80-100); MEAN CORPUSCULAR HEMOGLOBIN 27.4 pg (25-34); MEAN CORPUSCULAR HGB CONC 31.7 g/dl (32-36); MEAN PLATELET VOLUME 10.4 fL (7.4-10.4); MONO % 11.6 %; NEUT % 61.1 %; PLATELET COUNT 258 K/uL (130-400); RED BLOOD COUNT 4.42 M/uL (4.2-5.4); WHITE BLOOD COUNT 8.44 K/uL (4.8-10.8)
--- NOTE | 2017-02-17 08:32 | DIAGNOSTIC IMAGING REPORT ---
PA CHEST RADIOGRAPH AND UPRIGHT AND SUPINE AP RADIOGRAPHS OF THE ABDOMEN CLINICAL HISTORY: Abdominal pain. COMPARISON STUDY: Chest radiograph June 12, [address] of the abdomen and pelvis February 03, 2017. FINDINGS: Cervical spine fusion hardware is incidentally noted. Lung volumes are normal. There is no consolidation or evidence of pulmonary edema. Cardiomediastinal silhouette is stable. There is no free air. The bowel gas pattern is normal. There is a moderate amount of stool within the colon and rectum. IMPRESSION: 1. No free air or evidence of bowel obstruction. 2. Moderate amount of stool within the colon and rectum. 3. No acute cardiopulmonary findings. Electronically signed by: Otoniel Lemus M.D. 02/17/2017 8:30 AM Dictated Date/Time: 02/17/2017 8:28 AM
[2017-02-17 08:39] LABS: INR 3.3 (0.9-1.1); PARTIAL THROMBOPLASTIN RATIO 2.1; PROTHROMBIN TIME (PATIENT) 37.5 SECONDS (9.0-12.0)
[2017-02-17 08:43] LABS: ALT/SGPT 24 U/L (12-78); BLOOD UREA NITROGEN 26 mg/dl (7-18); BUN/CREATININE RATIO 16.5 (10-20); CALCIUM 9.1 mg/dl (8.5-10.1); CARBON DIOXIDE 22 mmol/L (21-32); CHLORIDE 108 mmol/L (98-107); GLUCOSE 114 mg/dl (70-99); POTASSIUM 3.9 mmol/L (3.5-5.1); SODIUM 141 mmol/L (136-145)
[2017-02-17 08:48] LABS: ALKALINE PHOSPHATASE 151 U/L (45-117); AST/SGOT 24 U/L (15-37)
--- NOTE | 2017-02-17 08:57 | DIAGNOSTIC IMAGING REPORT ---
Right upper quadrant ultrasound GALLBLADDER-ABD LIMITED CLINICAL HISTORY: ABDOMINAL PAIN/GI pain. Nausea. TECHNIQUE: Ultrasound COMPARISON STUDY: 02/03/2017 FINDINGS: Combination of gallstones and sludge within the gallbladder lumen. Common bile duct 5 mm. Liver is uniform throughout. Pancreas is poorly seen due to overlying bowel content. Right kidney demonstrates several cysts. There is no evidence for renal hydronephrosis. IMPRESSION: 1. Combination of gallstones and sludge within the gallbladder lumen. 2. Normal caliber bile duct. 3. Several right renal cysts. Electronically signed by: Doe Cyr M.D. 02/17/2017 8:55 AM Dictated Date/Time: 02/17/2017 8:54 AM
[2017-02-17 09:22] LABS: URINE APPEARANCE CLOUDY (CLEAR); URINE BILIRUBIN NEG (NEG); URINE COLOR YELLOW; URINE EPITHELIAL CELL AUTO >30 /lpf (0-5); URINE NITRITE NEG (NEG); URINE SPECIFIC GRAVITY 1.018 (1.000-1.030); UROBILINOGEN NEG (NEG)
[2017-02-17 09:24] LABS: MANUAL MICROSCOPIC REQUIRED? NO; REVIEW REQ? NO
[2017-02-17] MEDS ORDERED: CIPR-255 PO (10:05)
[2017-02-17 10:31] VITALS: BP 142/83; PULSE 68; O2SAT 95
[2017-02-19] MEDS ORDERED: PRED1SUS3 OPR (07:03)
[2017-06-18] MEDS ORDERED: TPRSR25 PO (14:52)
[2017-06-27] MEDS ORDERED: METO25TA3 PO (03:39)
[2017-06-27] MEDS ORDERED: TPRSR/25 PO (03:40)
== END 2017-02-17 10:31 | disposition home or self-care (01) ==
LOC: C.EDB 07:22
DX: B02.23 Postherpetic polyneuropathy (principal); K80.20 Calculus of gallbladder without cholecystitis without obstruction; N39.0 Urinary tract infection, site not specified; J45.40 Moderate persistent asthma, uncomplicated; I48.91 Unspecified atrial fibrillation; I12.9 Hypertensive chronic kidney disease with stage 1 through stage 4 chronic kidney disease, or unspecified chronic kidney disease; N18.3 Chronic kidney disease, stage 3 (moderate); E11.22 Type 2 diabetes mellitus with diabetic chronic kidney disease; E03.9 Hypothyroidism, unspecified; F32.9 Major depressive disorder, single episode, unspecified; H81.09 Meniere's disease, unspecified ear; Z98.890 Other specified postprocedural states; Z79.01 Long term (current) use of anticoagulants; Z79.899 Other long term (current) drug therapy

== ENCOUNTER → 2017-02-19 | Day surgery (SDC) | payer OTHER ==
[2017-02-18 08:44] VITALS: Ht 168.9 cm; Wt 88.6 kg
[~2017-02-19] VITALS: Ht 168.9 cm; Wt 88.6 kg
[~2017-02-19] MED LIST changes: +500ML BSS 0.3ML EPI 1:1000PF IRRIG ONE; +ACETAMINOPHEN 325 MG TAB PO PRN; +AMVISC PLUS 0.8ML SYRINGE INT OCU ONE; +ATROPINE SULFATE 0.1 MG/ML 5ML SYR IV PRN; +BSS FLUSH ONE; +ENDOCOAT 0.85ML SYRINGE INT OCU ONE; +EpHEDrine SULFATE INJ 50 MG/ML AMP IV PRN; +EpINEphrine INJ 1MG/ML AMP 1 MG/ML AMP ONE; +IPRA0.03; +LACTATED RINGER'S 1000ML 500 ML IV SCH; +LIDOCAINE 4% OP SOLN DROP CHARGE ONE; +LIDOCAINE 4% OP SOLN DROP CHARGE OPL SCH; +LIDOCAINE HCL 1% MPF 2 ML VIAL ONE; +METO25TA3 PO; +MIDAZOLAM HCL 1 MG/ML 2ML VIAL ONE; +MIX: 4ML BSS 1ML EPI 1:1000 PF TOP ONE; +MOXIFLOXACIN OPH SOLN PER DROP CHARGE ONE; +POVIDONE-IODINE OP SOLN 30 ML BTL ONE; +PRED1SUS3 OPR; +PROPARACAINE 0.5% OP SOLN PER DROP CHARGE OPL SCH; +TOBRAMYCIN/DEXAMETHASONE OPH OINT PER APPLN CHARGE ONE; +TPRSR/25 PO; +TPRSR25 PO; +WARF3TAB PO
--- NOTE | 2017-02-19 06:38 | History & Physical Bridge - SC ---
H&P Re-Evaluation Bridge Note: I have examined the patient, reviewed the History & Physical and in the interval since the performance of the History & Physical I have noted the following changes of clinical significance: No changes noted. Left eye cataract surgery.
[2017-02-19] MEDS: PHENYLEPHRINE HCL 2.5% OP SOLN PER DROP CHARGE OPL SCH ×3 (06:46→06:58)
[2017-02-19] MEDS: CYCLOPENTOLATE HCL 1% OP SOLN PER DROP CHARGE OPL SCH ×3 (06:48→07:00)
[2017-02-19] MEDS: TROPICAMIDE 1% OP SOLN PER DROP CHARGE OPL SCH ×3 (06:48→06:59)
[2017-02-19] MEDS: MOXIFLOXACIN OPH SOLN PER DROP CHARGE OPL SCH ×3 (06:49→07:01)
--- NOTE | 2017-02-19 08:06 | [facility] Post Operative Brief Note ---
Immediate Operative Summary Operative Date Feb 19, 2017. Pre-Operative Diagnosis Left Eye Cataract Post-Operative Diagnosis Same Procedure(s) Performed Left Cataract Phacoemulsification With Intraocular Lens Implant Surgeon Dr Nathan Ham Stringer Surgeon(s) None Estimated Blood Loss 0ml Findings left cataract Specimens None Complication(s) None Disposition
[2017-02-19 08:07] VITALS: TEMP 36.4
--- NOTE | 2017-02-19 08:07 | [facility] Operative Report ---
Operative Report Date of Service Feb 19, 2017. Operative Report Phaco with monofocal IOL DATE OF OPERATION: 02/19/17 PREOPERATIVE DIAGNOSIS: Senile nuclear cataract, left eye POSTOPERATIVE DIAGNOSIS: Senile nuclear cataract, left eye PROCEDURE PERFORMED: Phacoemulsification with intraocular lens implantation, left eye SURGEON: Dr. Suman Nathan ANESTHESIA: Topical with 1% intracameral lidocaine and monitored anesthesia care COMPLICATIONS: None DESCRIPTION OF PROCEDURE: After positively identifying the patient both verbally and by wristband in the preoperative area, the left eye was marked as the operative eye. The patient was then brought back to the operating room by the anesthesia and nursing staff where they were given a drop of Lidocaine and betadine into the operative eye. They were then sterilely prepped and draped in the standard fashion typical for ophthalmic surgery. Steri-strips were placed along the upper eyelids to keep the lashes back, and a lid speculum was placed into the operative eye. At this point, a documented time out was performed with members of the ophthalmology, nursing, and anesthesia staffs all agreeing upon the correct patient, correct location for surgery, correct procedure, and correct type and power of intraocular lens to be implanted. The microscope was then swung into position. First, a paracentesis wound was made using a sideport blade. Then, in sequence, 1% preservative-free lidocaine followed by Endocoat viscoelastic was injected into the anterior chamber. Next , the main incision was made with a keratome blade in triplanar fashion. A sharp cystotome was introduced into the eye and used to create a tear in the anterior capsule, which was directed into a continuous curvilinear capsulorrhexis using Utrata forceps. Hydrodissection was then performed with BSS on a flat-tip cannula. Next, the phacoemulsification handpiece was introduced into the eye and used to remove the nucleus in a [id number] fashion. This was done without complication and then the irrigation-aspiration handpiece was introduced into the eye and used to remove all remaining cortical and epinuclear material. Amvisc was then injected into the anterior chamber as well as into the capsular bag and using the lens injector system, an MX60 21.0 D lens, serial number [id number], and expiration date 09/2019 was injected into the capsular bag and rotated into the correct position. Next, the irrigation- aspiration handpiece was used to remove all remaining Amvisc. BSS was used to hydrate the main wound, and then BSS was injected into the paracentesis site to reach physiologic pressure and then the main wound was checked and found to be watertight. The patient was given drops of Vigamox and Tobradex ointment into the operative eye, and then the surrounding area was cleaned and dried. A clear plastic shield was placed over the eye and the patient was then sat up and taken from the operating room by the anesthesia staff having tolerated the procedure well and suffering no complications. DISPOSITION: The patient was returned to the recovery room in stable condition. I attest to the content of the Intraoperative Record and any orders documented therein. Any exceptions are noted below.
--- NOTE | 2017-02-19 08:08 | Discharge Instructions-SurgCtr ---
Discharge Instructions Date of Service Feb 19, 2017. Visit Reason for Visit: Cataract Left Eye Discharge Discharge Diagnosis / Problem: left cataract Discharge Goals Goal(s): Decrease discomfort, Improve function Activity Recommendations Activity Limitations: as noted below Anesthesia . Post Anesthesia Instructions: If you have had General Anesthesia or IV Sedation: * Do not drive today. * Resume driving when surgeon permits. * Do not make important decisions or sign legal documents today. * Call surgeon for: 1. Temperature elevations greater than 101 degrees F. 2. Uncontrollable pain. 3. Excessive bleeding. 4. Persistent nausea and vomiting. 5. Medication intolerance (nausea, vomiting or rash). * For nausea and vomiting use only clear liquids such as: tea, soda, bouillon until nausea subsides, then gradually increase diet as tolerated. * If you have any concerns or questions, call your surgeon's office. If physician is unavailable and it is an emergency, call 911 or go to the nearest emergency room. . Instructions / Follow-Up Instructions / Follow-Up ACTIVITY RECOMMENDATIONS: * Light activities. * You may walk outside, read, watch television. * You may notice redness on the white part of the eye and some blurry vision - this is normal. MEDICATIONS: Resume previous medications unless instructed otherwise by your surgeon. Start all eye drops at 10 am today: * Eye drops (today): Prednisone - one drop in operative eye every 2 hours while awake Ofloxacin - one drop in operative eye every 2 hours while awake SPECIAL CARE INSTRUCTIONS: * Tape plastic shield over eye to sleep at night. Call your doctor at with any concerns or problems. FOLLOW UP VISIT: Follow-up with Dr Nathan at [place] office as scheduled. Diet Recommendations Home Diet: no limitations Procedures Procedures Performed: Left Cataract Phacoemulsification With Intraocular Lens Implant Pending Studies Studies pending at discharge: no Medical Emergencies . Who to Call and When: Medical Emergencies: If at any time you feel your situation is an emergency, please call 911 immediately. . Non-Emergent Contact Non-Emergency issues call your: Surgeon . . "Provider Documentation" section prepared by Suman Nathan. .
--- NOTE | 2017-02-19 08:13 | Anesthesia Progress Nt - [facility] ---
Anesthesia Post Op Note Date & Time Feb 19, 2017 at 08:13 Vital Signs Pain Intensity: 0 Vital Signs Past 12 Hours Date Time Temp Pulse Resp B/P (MAP) Pulse Ox O2 Delivery O2 Flow Rate FiO2 02/19/17 06:38 36.6 64 18 134/62 (86) 96 Room Air Notes Mental Status: alert / awake / arousable, participated in evaluation Pt Amnestic to Procedure: Yes Nausea / Vomiting: adequately controlled Pain: adequately controlled Airway Patency, RR, SpO2: stable & adequate BP & HR: stable & adequate Hydration State: stable & adequate Anesthetic Complications: no major complications apparent
[2017-02-19 08:43] VITALS: BP 147/72; PULSE 67; O2SAT 95
== END | disposition home or self-care (01) ==
LOC: X.SURG 06:20
PROVIDERS: ATTEND Ophthalmology
DX: H25.12 Age-related nuclear cataract, left eye (principal); E11.36 Type 2 diabetes mellitus with diabetic cataract; G47.33 Obstructive sleep apnea (adult) (pediatric); J45.909 Unspecified asthma, uncomplicated; Z98.890 Other specified postprocedural states; I48.91 Unspecified atrial fibrillation; Z88.2 Allergy status to sulfonamides; Z88.0 Allergy status to penicillin; Z88.1 Allergy status to other antibiotic agents

== ENCOUNTER → 2017-03-05 | Day surgery (SDC) | payer OTHER ==
[2017-02-27 09:49] VITALS: Ht 168.9 cm; Wt 88.6 kg
[~2017-03-05] VITALS: Ht 168.9 cm; Wt 88.6 kg
[~2017-03-05] MED LIST changes: -CIPR-255 PO; +FENTANYL CITRATE INJ 50 MCG/1 ML 2 ML VIAL IV PRN; +FLUMAZENIL 0.1 MG/1 ML 10 ML VIAL IV PRN; -HYDR-5688 PO; +HYDROmorphone INJ 2 MG/ML SYR/VIAL IV PRN; -IPRA0.03; +LABETALOL HCL IV 5 MG/ML 20ML IV PRN; -LIDOCAINE 4% OP SOLN DROP CHARGE OPL SCH; +LIDOCAINE 4% OP SOLN DROP CHARGE OPR SCH; +MEPERIDINE HCL 25 MG/ML CARP IV PRN; -METO25TA3 PO; +NALOXONE HCL 0.4 MG/1 ML VIAL/CARP IV PRN; +ONDANSETRON INJ 2 MG/ML 2 ML VIAL IV PRN; +PHENYLEPHRINE 100MCG/ML 5ML SYR IV PRN; -PROPARACAINE 0.5% OP SOLN PER DROP CHARGE OPL SCH; +PROPARACAINE 0.5% OP SOLN PER DROP CHARGE OPR SCH; -TPRSR/25 PO; -TPRSR25 PO; -WARF3TAB PO
[2017-03-05] MEDS: PHENYLEPHRINE HCL 2.5% OP SOLN PER DROP CHARGE OPR SCH ×3 (06:30→06:42)
[2017-03-05] MEDS: TROPICAMIDE 1% OP SOLN PER DROP CHARGE OPR SCH ×3 (06:31→06:43)
[2017-03-05] MEDS: CYCLOPENTOLATE HCL 1% OP SOLN PER DROP CHARGE OPR SCH ×3 (06:32→06:44)
[2017-03-05] MEDS: MOXIFLOXACIN OPH SOLN PER DROP CHARGE OPR SCH ×3 (06:33→06:45)
--- NOTE | 2017-03-05 06:36 | History & Physical Bridge - [place] ---
H&P Re-Evaluation Bridge Note: I have examined the patient, reviewed the History & Physical and in the interval since the performance of the History & Physical I have noted the following changes of clinical significance: No changes noted. Right eye cataract surgery.
--- NOTE | 2017-03-05 07:32 | [facility] Post Operative Brief Note ---
Immediate Operative Summary Operative Date Mar 05, 2017. Pre-Operative Diagnosis Cataract Right Eye Post-Operative Diagnosis Same Procedure(s) Performed Right Cataract Phacoemulsification With Intraocular Lens Implant Surgeon Dr. Nathan Internal Control Manager Surgeon(s) None Estimated Blood Loss 0 Findings right cataract Specimens None Complication(s) None Disposition
--- NOTE | 2017-03-05 07:33 | [facility] Operative Report ---
Operative Report Date of Service Mar 05, 2017. Operative Report DATE OF OPERATION: 03/05/17 PREOPERATIVE DIAGNOSIS: Senile nuclear cataract, right eye POSTOPERATIVE DIAGNOSIS: Senile nuclear cataract, right eye PROCEDURE PERFORMED: Phacoemulsification with intraocular lens implantation, right eye SURGEON: Dr. Suman Nathan ANESTHESIA: Topical with 1% intracameral lidocaine and monitored anesthesia care COMPLICATIONS: None DESCRIPTION OF PROCEDURE: After positively identifying the patient both verbally and by wristband in the preoperative area, the right eye was marked as the operative eye. The patient was then brought back to the operating room by the anesthesia and nursing staff where they were given a drop of Lidocaine and betadine into the operative eye. They were then sterilely prepped and draped in the standard fashion typical for ophthalmic surgery. Steri-strips were placed along the upper eyelids to keep the lashes back, and a lid speculum was placed into the operative eye. At this point, a documented time out was performed with members of the ophthalmology, nursing, and anesthesia staffs all agreeing upon the correct patient, correct location for surgery, correct procedure, and correct type and power of intraocular lens to be implanted. The microscope was then swung into position. First, a paracentesis wound was made using a sideport blade. Then, in sequence, 1% preservative-free lidocaine followed by Endocoat viscoelastic was injected into the anterior chamber. Next , the main incision was made with a keratome blade in triplanar fashion. A sharp cystotome was introduced into the eye and used to create a tear in the anterior capsule, which was directed into a continuous curvilinear capsulorrhexis using Utrata forceps. Hydrodissection was then performed with BSS on a flat-tip cannula. Next, the phacoemulsification handpiece was introduced into the eye and used to remove the nucleus in a [id number]-[id number] fashion. This was done without complication and then the irrigation-aspiration handpiece was introduced into the eye and used to remove all remaining cortical and epinuclear material. Amvisc was then injected into the anterior chamber as well as into the capsular bag and using the lens injector system, an MX60 20.0 D lens, serial number [id number], and expiration date 08/2019 was injected into the capsular bag and rotated into the correct position. Next, the irrigation- aspiration handpiece was used to remove all remaining Amvisc. BSS was used to hydrate the main wound, and then BSS was injected into the paracentesis site to reach physiologic pressure and then the main wound was checked and found to be watertight. The patient was given drops of Vigamox and Tobradex ointment into the operative eye, and then the surrounding area was cleaned and dried. A clear plastic shield was placed over the eye and the patient was then sat up and taken from the operating room by the anesthesia staff having tolerated the procedure well and suffering no complications. DISPOSITION: The patient was returned to the recovery room in stable condition. I attest to the content of the Intraoperative Record and any orders documented therein. Any exceptions are noted below.
--- NOTE | 2017-03-05 07:34 | Discharge Instructions-SurgCtr ---
Discharge Instructions Date of Service Mar 05, 2017. Visit Reason for Visit: Cataract Right Eye Discharge Discharge Diagnosis / Problem: right cataract Discharge Goals Goal(s): Decrease discomfort, Improve function Activity Recommendations Activity Limitations: as noted below Anesthesia . Post Anesthesia Instructions: If you have had General Anesthesia or IV Sedation: * Do not drive today. * Resume driving when surgeon permits. * Do not make important decisions or sign legal documents today. * Call surgeon for: 1. Temperature elevations greater than 101 degrees F. 2. Uncontrollable pain. 3. Excessive bleeding. 4. Persistent nausea and vomiting. 5. Medication intolerance (nausea, vomiting or rash). * For nausea and vomiting use only clear liquids such as: tea, soda, bouillon until nausea subsides, then gradually increase diet as tolerated. * If you have any concerns or questions, call your surgeon's office. If physician is unavailable and it is an emergency, call 911 or go to the nearest emergency room. . Instructions / Follow-Up Instructions / Follow-Up ACTIVITY RECOMMENDATIONS: * Light activities. * You may walk outside, read, watch television. * You may notice redness on the white part of the eye and some blurry vision - this is normal. MEDICATIONS: Resume previous medications unless instructed otherwise by your surgeon. Start all eye drops at 9:30 am today: * Eye drops (today): Dexamethasone - one drop in operative eye every 2 hours while awake Ofloxacin - one drop in operative eye every 2 hours while awake SPECIAL CARE INSTRUCTIONS: * Tape plastic shield over eye to sleep at night. Call your doctor at with any concerns or problems. FOLLOW UP VISIT: Follow-up with Dr Nathan at [place] office as scheduled. Diet Recommendations Home Diet: no limitations Procedures Procedures Performed: Right Cataract Phacoemulsification With Intraocular Lens Implant Pending Studies Studies pending at discharge: no Medical Emergencies . Who to Call and When: Medical Emergencies: If at any time you feel your situation is an emergency, please call 911 immediately. . Non-Emergent Contact Non-Emergency issues call your: Surgeon . . "Provider Documentation" section prepared by Suman Nathan. .
--- NOTE | 2017-03-05 07:51 | Anesthesia Progress Nt - [facility] ---
Anesthesia Post Op Note Date & Time Mar 05, 2017 at 07:51 Vital Signs Pain Intensity: 0 Vital Signs Past 12 Hours Date Time Temp Pulse Resp B/P (MAP) Pulse Ox O2 Delivery O2 Flow Rate FiO2 03/05/17 07:35 36.0 65 16 168/76 (106) 95 Room Air 03/05/17 06:30 36.3 63 16 134/76 (95) 96 Room Air Notes Mental Status: alert / awake / arousable, participated in evaluation Pt Amnestic to Procedure: Yes Nausea / Vomiting: adequately controlled Pain: adequately controlled Airway Patency, RR, SpO2: stable & adequate BP & HR: stable & adequate Hydration State: stable & adequate Anesthetic Complications: no major complications apparent
[2017-03-05 07:58] VITALS: BP 151/81; PULSE 61; TEMP 36.7; O2SAT 98
== END | disposition home or self-care (01) ==
LOC: X.SURG 06:08
PROVIDERS: ATTEND Ophthalmology
DX: H25.11 Age-related nuclear cataract, right eye (principal); I50.9 Heart failure, unspecified; E11.9 Type 2 diabetes mellitus without complications; Z87.891 Personal history of nicotine dependence; Z79.01 Long term (current) use of anticoagulants; Z79.899 Other long term (current) drug therapy

== ENCOUNTER 2017-06-17 22:15 | Observation (INO) | payer OTHER ==
[~2017-06-17] VITALS: Ht 167.6 cm; Wt 89.2 kg
[~2017-06-17 22:15] MED LIST changes: -500ML BSS 0.3ML EPI 1:1000PF IRRIG ONE; -ACETAMINOPHEN 325 MG TAB PO PRN; -AMVISC PLUS 0.8ML SYRINGE INT OCU ONE; -ATROPINE SULFATE 0.1 MG/ML 5ML SYR IV PRN; -BSS FLUSH ONE; -ENDOCOAT 0.85ML SYRINGE INT OCU ONE; -EpHEDrine SULFATE INJ 50 MG/ML AMP IV PRN; -EpINEphrine INJ 1MG/ML AMP 1 MG/ML AMP ONE; -FENTANYL CITRATE INJ 50 MCG/1 ML 2 ML VIAL IV PRN; -FLUMAZENIL 0.1 MG/1 ML 10 ML VIAL IV PRN; -HYDROmorphone INJ 2 MG/ML SYR/VIAL IV PRN; -LABETALOL HCL IV 5 MG/ML 20ML IV PRN; -LACTATED RINGER'S 1000ML 500 ML IV SCH; -LIDOCAINE 4% OP SOLN DROP CHARGE ONE; -LIDOCAINE 4% OP SOLN DROP CHARGE OPR SCH; -LIDOCAINE HCL 1% MPF 2 ML VIAL ONE; -MEPERIDINE HCL 25 MG/ML CARP IV PRN; -MIDAZOLAM HCL 1 MG/ML 2ML VIAL ONE; -MIX: 4ML BSS 1ML EPI 1:1000 PF TOP ONE; -MOXIFLOXACIN OPH SOLN PER DROP CHARGE ONE; -NALOXONE HCL 0.4 MG/1 ML VIAL/CARP IV PRN; -ONDANSETRON INJ 2 MG/ML 2 ML VIAL IV PRN; -PHENYLEPHRINE 100MCG/ML 5ML SYR IV PRN; -POVIDONE-IODINE OP SOLN 30 ML BTL ONE; -PROPARACAINE 0.5% OP SOLN PER DROP CHARGE OPR SCH; -TOBRAMYCIN/DEXAMETHASONE OPH OINT PER APPLN CHARGE ONE
[2017-06-17] MEDS ORDERED: DILTIAZEM HCL 5 MG/ML 5 ML VIAL IV STA (23:03)
[2017-06-17 23:12] LABS: HEMATOCRIT 38.7 % (37-47); MEAN CELL VOLUME 84.9 fL (80-100); MEAN CORPUSCULAR HEMOGLOBIN 27.6 pg (25-34); MEAN CORPUSCULAR HGB CONC 32.6 g/dl (32-36); MEAN PLATELET VOLUME 9.9 fL (7.4-10.4); PLATELET COUNT 255 K/uL (130-400); RED BLOOD COUNT 4.56 M/uL (4.2-5.4); WHITE BLOOD COUNT 7.89 K/uL (4.8-10.8)
[2017-06-17 23:27] LABS: INR 2.6 (0.9-1.1); PARTIAL THROMBOPLASTIN RATIO 1.7; PROTHROMBIN TIME (PATIENT) 28.8 SECONDS (9.0-12.0)
[2017-06-17 23:42] LABS: ALT/SGPT 24 U/L (12-78); BLOOD UREA NITROGEN 38 mg/dl (7-18); BUN/CREATININE RATIO 20.5 (10-20); CALCIUM 8.9 mg/dl (8.5-10.1); CARBON DIOXIDE 22 mmol/L (21-32); CHLORIDE 109 mmol/L (98-107); CREATININE 1.87 mg/dl (0.60-1.20); GLUCOSE 139 mg/dl (70-99); MAGNESIUM 2.3 mg/dl (1.8-2.4); POTASSIUM 4.7 mmol/L (3.5-5.1); SODIUM 139 mmol/L (136-145)
[2017-06-17 23:47] LABS: ALKALINE PHOSPHATASE 174 U/L (45-117); AST/SGOT 26 U/L (15-37); PHOSPHORUS 3.8 mg/dl (2.5-4.9)
--- NOTE | 2017-06-17 23:53 | EMERGENCY ROOM VISIT NOTE ---
History Report prepared by Violet: Marci Saba Under the Supervision of: Dr. Aleida Denny M.D. First contact with patient: 22:55 Chief Complaint: IRREGULAR HEARTBEAT Stated Complaint: THINKS SHE IN A FIB Nursing Triage Summary: patient c/o generalized illness symptoms states, "I just don't feel right, I do go into a-fib but I never know if I'm ill or having Afib". pt reports getting dizzy yesterday with a funny feeling she cannot describe from her chest up to her head. denies SOB. denies CP History of Present Illness The patient is a 76 year old female who presents to the Emergency Room with complaints of persistent irregular heartbeat starting yesterday. She has a history of atrial fibrillation. She is not always in atrial fibrillation. Her last 2 episodes of atrial fibrillation, she had to be shocked back into a normal rhythm. She reports SOB, neck pain, headache, dizziness, nausea, and feeling faint. She feels OK when she is at rest. If she tries to move around, she feels like she needs to sit back down. She denies any arm pain or jaw pain. She is on Coumadin and amiodarone. She does not smoke. She does not take aspirin. Source of History: patient Onset: yesterday Position: other (global) Quality: other (irregular heartbeat) Timing: other (persistent) Associated Symptoms: + headache, + neck pain, + SOB, + nausea Note: Pt reports dizziness, feeling faint. Pt denies arm pain, jaw pain. Review of Systems See HPI for pertinent positives & negatives. A total of 10 systems reviewed and were otherwise negative. Past Medical & Surgical Medical Problems: (1) ARF (acute renal failure) (2) Asthma, moderate persistent (3) Atrial fibrillation and flutter (4) CKD (chronic kidney disease), stage III (5) Depression (6) Diet-controlled diabetes mellitus (7) HTN (hypertension) (8) Hypothyroidism (9) Meniere disease (10) RADHA (obstructive sleep apnea) (11) Palpitations Surgical Problems: (1) H/O sinus surgery (2) History of laminectomy (3) History of repair of left rotator cuff (4) Hx of neck surgery Family History Diabetes mellitus Social History Smoking Status: Never Smoker Alcohol Use: none Drug Use: none Marital Status: Housing Status: lives with significant other Occupation Status: employed Current/Historical Medications Scheduled Amiodarone HCl (Amiodarone HCl), 200 MG PO QAM Ferrous Sulfate (Ferrous Sulfate), 325 MG PO DAILY Fluticasone Furoate-Vilanterol (Breo Ellipta), 1 PUFF INH BID Folic Acid (Folvite), 1 MG PO DAILY Ipratropium [place] (Nasal) (Ipratropium [place]), 2 SPRAYS NA BID Lansoprazole (Prevacid), 30 MG PO QAM Levothyroxine Sodium (Levothyroxine Sodium), 88 MCG PO QAM Montelukast Sod (Montelukast Sodium), 10 MG PO HS Topiramate (Topamax ), 25 MG PO AMPM Venlafaxine Hcl (Effexor Extended Rel), 150 MG PO QAM Warfarin Sodium (Warfarin Sodium), 2 MG PO 4XWK Warfarin Sodium (Coumadin), 3 MG PO 3XWK Scheduled PRN Albuterol Hfa (Ventolin Hfa), 2 PUFFS INH QID PRN for SOB/Wheezing Alprazolam (Alprazolam), 0.5 MG PO QID PRN for Anxiety Allergies Coded Allergies: Sulfa Drugs (Verified Allergy, Severe, SEVERE REACTION, RASH AND HIVES, ) Celecoxib (Verified Allergy, Unknown, Rash/Hives/Itching., 06/18/17) Cephalexin (Verified Allergy, Unknown, Rash/Hives/Itching., 06/18/17) Dexamethasone (Verified Allergy, Unknown, Steroid psychosis., 06/18/17) Furosemide (Verified Allergy, Unknown, Rash/Hives/Itching., 06/18/17) Gabapentin (Verified Allergy, Unknown, Rash/Hives/Itching., 06/18/17) Meclizine (Verified Allergy, Unknown, Unknown, 06/18/17) Methylprednisolone (Verified Allergy, Unknown, Rash/Hives/Itching., ) Penicillins (Verified Allergy, Unknown, Unknown., 06/18/17) Prednisone (Verified Allergy, Unknown, Rash/Hives/Itching., 06/18/17) Pregabalin (Verified Allergy, Unknown, Rash/Hives/Itching., 06/18/17) Vancomycin (Verified Allergy, Unknown, Jodi syn. ., 06/18/17) Physical Exam Vital Signs Date Time Temp Pulse Resp B/P (MAP) Pulse Ox O2 Delivery O2 Flow Rate FiO2 06/18/17 02:07 89 06/18/17 01:31 82 23 162/75 96 Room Air 06/18/17 01:01 89 23 134/89 96 Room Air 06/18/17 00:31 85 23 124/75 96 Room Air 06/18/17 00:00 74 17 134/74 96 Room Air 06/17/17 23:37 90 22 158/85 96 Room Air 06/17/17 22:58 97 Room Air 06/17/17 22:56 88 18 151/89 98 Room Air 06/17/17 22:56 91 22 151/89 97 Room Air 06/17/17 22:34 99 06/17/17 22:19 36.3 110 20 178/82 98 Room Air Physical Exam Vital signs reviewed. General: Well-appearing elderly female, in no significant distress. HEENT: No scleral icterus, PERRLA, neck supple. Atraumatic. Cardiovascular: Irregular but rate controlled, no extra sounds. Pulmonary: Clear to auscultation bilaterally, normal work of breathing. Abdomen: Obese abdomen. Soft, nontender, nondistended, positive bowel sounds. Musculoskeletal: Atraumatic, no peripheral edema. Neurologic: Patient awake alert and oriented x 3 Skin: Warm, dry, no rash Medical Decision & Procedures ER Provider Diagnostic Interpretation: X-ray results as stated below per interpretation by me: Chest X-ray: Post surgical change to the cervical spine. No focal lung consolidation. No failure. Normal mediastinal silhouette. Laboratory Results 06/17/17 23:00 06/17/17 23:00 Test 06/17/17 23:00 06/17/17 23:04 06/18/17 02:07 Red Blood Count 4.56 M/uL (4.2-5.4) Mean Corpuscular Volume 84.9 fL (80-100) Mean Corpuscular Hemoglobin 27.6 pg (25-34) Mean Corpuscular Hemoglobin Concent 32.6 g/dl (32-36) RDW Standard Deviation 45.7 fL (36.4-46.3) RDW Coefficient of Variation 14.7 % (11.5-14.5) Mean Platelet Volume 9.9 fL (7.4-10.4) Prothrombin Time 28.8 SECONDS (9.0-12.0) Prothromb Time International Ratio 2.6 (0.9-1.1) Activated Partial Thromboplast Time 44.8 SECONDS (21.0-31.0) Partial Thromboplastin Ratio 1.7 Anion Gap 8.0 mmol/L (3-11) Est Creatinine Clear Calc Drug Dose 28.9 ml/min Estimated GFR () 29.7 Estimated GFR (Non- 25.7 BUN/Creatinine Ratio 20.5 (10-20) Calcium Level 8.9 mg/dl (8.5-10.1) Phosphorus Level 3.8 mg/dl (2.5-4.9) Magnesium Level 2.3 mg/dl (1.8-2.4) Total Bilirubin < 0.1 mg/dl (0.2-1) Aspartate Amino Transf (AST/SGOT) 26 U/L (15-37) Alanine Aminotransferase (ALT/SGPT) 24 U/L (12-78) Alkaline Phosphatase 174 U/L (45-117) Total Creatine Kinase 101 U/L (26-192) Creatine Kinase MB 2.0 ng/ml (0.5-3.6) Creatine Kinase MB Ratio 2.0 (0-3.0) Total Protein 7.4 gm/dl (6.4-8.2) Albumin 3.7 gm/dl (3.4-5.0) Globulin 3.7 gm/dl (2.5-4.0) Albumin/Globulin Ratio 1.0 (0.9-2) Lipase 139 U/L (73-393) Thyroid Stimulating Hormone (TSH) 5.330 uIu/ml (0.300-4.500) Bedside Troponin I < 0.030 ng/ml (0-0.045) Laboratory results per my review. Medications Administered Medications (Trade) Dose Ordered Sig/Felipe Route Start Time Stop Time Status Last Admin Dose Admin Diltiazem HCl (Cardizem Inj) 10 mg NOW STAT IV 06/17/17 23:03 06/17/17 23:04 DC 06/17/17 23:37 10 MG ECG Indication: palpitations Rate (beats per minute): 96 Rhythm: atrial flutter (with variable AV block) Findings: nonspecific-ST abn, no acute ischemic change ED Course 230: Past medical records reviewed. The patient was evaluated in room A12B. A complete history and physical examination was performed. 230: Diltiazem HCl 10 mg IV. 005: Upon reevaluation, the patient is resting comfortably. I discussed laboratory and radiographic results with her. She verbalized agreement of the treatment plan. The patient will be evaluated for further management and care. 104: I reviewed the patient's case with Cris Wade. He will evaluate the patient for further management. Medical Decision Differential diagnosis: Acute coronary syndrome, pulmonary embolus, aortic dissection, musculoskeletal pain, pneumonia, pleural effusion, pneumothorax This pt was evaluated and appeared to be in no distress. IV access was obtained and lab work was obtained. Pt was placed on the braid cutter. She was uncomfortable, but in no distress. EKG reveals a rate controlled a flutter. Patient's laboratory work is fairly unrevealing. Cardiac enzymes are normal. Patient had no significant change from the IV Cardizem 10 mg that was administered. She states she has been cardioverted in the past. Her INR is therapeutic at 2.6. Given the patient's ongoing discomfort, she will be evaluated by the hospitalist service for further management. Patient has been are aware of the plan and agree. Medication Reconcilliation Current Medication List: was personally reviewed by me Blood Pressure Screening Patient's blood pressure: Normal blood pressure Blood pressure disposition: Did not require urgent referral Consults Time Called: 57 Consulting Physician: Cris Wade Returned Call: [phone] I reviewed the patient's case with him. He will evaluate the patient for further management. Impression Primary Impression: Substernal chest pain Additional Impression: Atrial flutter, paroxysmal Scribe Attestation The scribe's documentation has been prepared under my direction and personally reviewed by me in its entirety. I confirm that the note above accurately reflects all work, treatment, procedures, and medical decision making performed by me. Departure Information Dispostion Being Evaluated By Hospitalist Referrals No Doctor, Assigned (PCP) Patient Instructions My [facility] Problem Qualifiers
[2017-06-18] VITALS (16 sets, daily range): BP systolic 111–162; BP diastolic 49–85; PULSE 70–106; TEMP 36.4–36.7; O2SAT 5–100; Ht 167.6 cm; Wt 89.2 kg
[2017-06-18] MEDS ORDERED: WARF3TAB PO (00:54)
[2017-06-18] MEDS ORDERED: IPRA0.03 (00:55)
[2017-06-18] MEDS ORDERED: TRAMADOL HCL 50 MG TAB PO PRN (02:15)
[2017-06-18] MEDS ORDERED: DEXTROSE 50% 50 ML SYR IV PRN (02:15)
[2017-06-18] MEDS ORDERED: NITROGLYCERIN 0.4 MG SL PER TAB CHARGE SL PRN (02:15)
[2017-06-18] MEDS ORDERED: HYDROmorphone INJ 0.5 MG/0.5 ML SYR IV PRN (02:15)
[2017-06-18] MEDS ORDERED: GLUCAGON FOR INJ 1 MG VIAL SQ PRN (02:15)
[2017-06-18] MEDS ORDERED: ALPRAZOLAM 0.5 MG TAB PO PRN (02:15)
[2017-06-18] MEDS ORDERED: GLUCOSE 40% GEL 15 GM TUBE PO PRN (02:15)
[2017-06-18] MEDS ORDERED: ACETAMINOPHEN 325 MG TAB PO PRN (02:15)
[2017-06-18] MEDS ORDERED: GLUCOSE 10 TABS/TUBE PO PRN (02:15)
[2017-06-18] MEDS ORDERED: LORAZEPAM 2 MG/ML 1 ML VIAL IV PRN (02:15)
[2017-06-18] MEDS ORDERED: PROMETHAZINE HCL INJ 12.5 MG in SODIUM CHLORIDE 0.9% 50ML 50 ML IV PRN (02:15)
[2017-06-18] MEDS ORDERED: SODIUM CHLORIDE 0.9% 250ML 250 ML IV SCH (02:45)
[2017-06-18] MEDS ORDERED: IV FLUIDS COMPLETED PRN (02:45)
[2017-06-18] MEDS ORDERED: AMIODARONE 200 MG TAB PO ONE (03:00)
[2017-06-18] MEDS ORDERED: SODIUM CHLORIDE 0.9% 1000ML 1,000 ML IV SCH (03:45)
--- NOTE | 2017-06-18 04:45 | HISTORY & PHYSICAL EXAMINATION ---
DATE OF ADMISSION: 06/18/2017 PRIMARY CARE PHYSICIAN: Dr. Calvo CHIEF COMPLAINT: Not feeling well, "I think I'm in A. fib." HISTORY OF PRESENT ILLNESS: History obtained from patient and records. Medical history significant for paroxysmal AFib/Aflutter on Coumadin, hypertension, hypothyroidism, chronic renal insufficiency (baseline creatinine 1.7), DM2, diet controlled, past tobacco abuse. Rcent confinement, last May 2016 for acute renal failure. About 2 days ago, the patient felt tired, appetite not too good the day before. weird sensation across her chest. 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 She took her blood pressure. SBP noted to be in the 90s. She could not feel her pulse similar to episodes of AFib in the past. Persistent symptoms at home. Compliant with medications. No unusual stress. Patient was brought to the Emergency Room. In the Emergency Room, the patient noted to be in rapid atrial flutter, heart rate 110. Patient received Cardizem IV bolus. Patient feels currently more comfortable. MEDICAL HISTORY: As above. A 2D echo from April 2016 showed EF of 60%-64%, LV wall thickness, left atrial enlargement, LV diastolic dysfunction, mild MR, mild TR. SURGERIES: Sinus surgery, back surgery, shoulder surgery, neck surgery, bilateral lubrication. HOME MEDICATIONS: Include Ventolin, alprazolam, amiodarone, Ellipta, Folvite, ferrous sulfate, Coumadin, ipratropium, Prevacid, levothyroxine, montelukast, Topamax, Effexor, Coumadin. ALLERGIES: ALLERGIC TO CEPHALEXIN, DEXAMETHASONE, FUROSEMIDE, MECLIZINE, METHYLPREDNISOLONE, VANCOMYCIN, GABAPENTIN, CELECOXIB, PENICILLIN, SULFA, PREGABALIN. PERSONAL AND SOCIAL HISTORY: Past tobacco abuse. 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 REVIEW OF SYSTEMS: As per HPI, all others negative. PHYSICAL EXAMINATION: VITAL SIGNS: Blood pressure was noted to be 178/82, later 154/74; pulse rate 110, later 85; RR 17; temperature 36.3, sats 96 on room air. GENERAL: slightly anxious, obese, no respiratory distress. SKIN: Normal color. Warm. HEENT: [place] palpebral conjunctivae. No ptosis. Dry buccal mucosa. NECK: Short neck, supple. CHEST: decreased breath sounds. No tenderness. CV: irregular. Palpable LE pulses. ABDOMEN: Some distention, nontender. EXTREMITIES: Minimal LE edema, no tenderness, LE somewhat sensitive to touch. NEUROLOGIC: Coherent, no gross focality. Gait and stance not assessed. LABORATORY DATA: Hemoglobin was noted to be 12.6, white cell count 10, platelets 200. Sodium 140, potassium 4.7, chloride 109, CO2 22, BUN 38, creatinine 1.9, glucose was 139. INR was 2.6. EKG, as per my interpretation, rate 100, atrial flutter. Chest x-ray, as per my interpretation, cardiomegaly, atelectasis. ASSESSMENT: 1. Recurrent atrial fibrillation/flutter. INR therapeutic possible precipitants : uncontrolled blood pressure mild clinical dehydration (ARF on CRI) 2. DM2, diet controlled, well controlled as of recent outpx HgA1c 3. past tobacco abuse, PLAN: Observation PCU. Facilitate amiodarone. Monitor creatinine response to IV fluids, monitor blood pressure, may need to augment/adjust regimen. Cardiology consult RE recurrent AF/AFl (Patient known to Dr. Hewitt ) NPO for now for possible cardioversion in the morning. ISS BG goal 140-180 DVT prophylaxis, Coumadin, INR 2-3. Full code. MTDD
[2017-06-18 05:39] LABS: BASO % 0.8 %; BASO ABS # 0.06 K/uL (0-0.2); COMPLETE YES; EOS % 4.1 %; HEMATOCRIT 36.4 % (37-47); IG% 0.4 %; LYMPH % 20.5 %; LYMPH ABS # 1.64 K/uL (1.2-3.4); MEAN CELL VOLUME 84.8 fL (80-100); MEAN CORPUSCULAR HGB CONC 31.9 g/dl (32-36); MEAN PLATELET VOLUME 10.1 fL (7.4-10.4); MONO % 13.3 %; NEUT % 60.9 %; PLATELET COUNT 225 K/uL (130-400); RED BLOOD COUNT 4.29 M/uL (4.2-5.4)
[2017-06-18 05:56] LABS: INR 2.8 (0.9-1.1); PROTHROMBIN TIME (PATIENT) 31.3 SECONDS (9.0-12.0)
[2017-06-18 06:16] LABS: BLOOD UREA NITROGEN 37 mg/dl (7-18); BUN/CREATININE RATIO 21.6 (10-20); CALCIUM 8.3 mg/dl (8.5-10.1); CARBON DIOXIDE 20 mmol/L (21-32); CHLORIDE 113 mmol/L (98-107); CREATININE 1.69 mg/dl (0.60-1.20); GLUCOSE 109 mg/dl (70-99); POTASSIUM 4.6 mmol/L (3.5-5.1); SODIUM 142 mmol/L (136-145)
[2017-06-18] MEDS: INSULIN ASPART 100 UNITS/ML 3 ML PEN SC SCH ×2 (06:30→12:20)
--- NOTE | 2017-06-18 06:39 | DIAGNOSTIC IMAGING REPORT ---
CHEST ONE VIEW PORTABLE CLINICAL HISTORY: Atypical chest pain. Atrial fibrillation. COMPARISON STUDY: 02/17/2017 FINDINGS: The heart is mildly enlarged. There is no failure. There is no focal pulmonary consolidation. There are no pleural effusions. There are postsurgical changes present within the cervical spine. Mild prominence of the mediastinum, is likely secondary to the AP portable technique[ IMPRESSION: No active disease in the chest. Electronically signed by: Juan Moya M.D. 06/18/2017 6:38 AM Dictated Date/Time: 06/18/2017 6:37 AM
[2017-06-18] MEDS ORDERED: FERROUS SULFATE 325 MG TAB PO SCH (09:00)
[2017-06-18] MEDS ORDERED: TOPIRAMATE 25 MG TAB PO SCH (09:00)
[2017-06-18] MEDS ORDERED: LEVOTHYROXINE 88 MCG TAB PO SCH (09:00)
[2017-06-18] MEDS ORDERED: PANTOprazole SOD 40 MG TAB PO SCH (09:00)
[2017-06-18] MEDS ORDERED: VENLAFAXINE HCL XR 150 MG CAPXR PO SCH (09:00)
--- NOTE | 2017-06-18 10:03 | Cardiology Consultation ---
Cardiology Consultation Date of Consultation: Jun 18, 2017 History of Present Illness Patient is a 76 year old female seen for etiology consultation per the request of Dr. Jain for the evaluation of atrial fibrillation. The patient's primary blueprinter is Dr. Hewitt of our practice. She has a history of somatic paroxysmal atrial fibrillation and atrial flutter. She previously undergone transesophageal echocardiogram guided cardioversion in 2014 with successful conversion to sinus rhythm and was discharged on Coumadin and amiodarone at that time. She has remained in sinus rhythm on recent outpatient follow-up visits. 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 Two days ago she was off of work and she did not feel like herself. She had no ambition and she basically laid around her house all day long but had no axel focal complaint either. She will back to work yesterday and felt dizzy, she was perspiring heavily, and felt like she was going to pass out. When she got from work, she had her take her pulse on her wrist and he determined that her pulse was irregular. She therefore presented to the emergency room where EKG confirmed the presence of atrial flutter versus atrial fibrillation at 96 bpm with nonspecific lateral ST changes. She remained in atrial fibrillation overnight having been admitted for observation to the telemetry unit. At present, she feels generalized weakness, she does not have any subjective symptoms of having an irregular heartbeat at present. She is not feel that she had axel palpitations symptoms with her past atrial fibrillation episodes. She notes that she has been compliant with her medications including amiodarone and warfarin. Recently as an outpatient, her INR had been below goal with an INR =1 on 05/28/2017 and then of 1.29 on . Past Medical/Surgical History Problem List: Medical Problems: (1) ARF (acute renal failure) (2) Asthma, moderate persistent (3) Atrial fibrillation and flutter (4) CKD (chronic kidney disease), stage III (5) Depression (6) Diet-controlled diabetes mellitus (7) HTN (hypertension) (8) Hypothyroidism (9) Meniere disease (10) RADHA (obstructive sleep apnea) (11) Palpitations Surgical Problems: (1) H/O sinus surgery (2) History of laminectomy (3) History of repair of left rotator cuff (4) Hx of neck surgery History Social History: She's a former smoker, she denies all quite use, she lives at home with her , 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 A total of 10 systems reviewed and were otherwise negative. Allergies Coded Allergies: Sulfa Drugs (Verified Allergy, Severe, SEVERE REACTION, RASH AND HIVES, ) Celecoxib (Verified Allergy, Unknown, Rash/Hives/Itching., 06/18/17) Cephalexin (Verified Allergy, Unknown, Rash/Hives/Itching., 06/18/17) Dexamethasone (Verified Allergy, Unknown, Steroid psychosis., 06/18/17) Furosemide (Verified Allergy, Unknown, Rash/Hives/Itching., 06/18/17) Gabapentin (Verified Allergy, Unknown, Rash/Hives/Itching., 06/18/17) Meclizine (Verified Allergy, Unknown, Unknown, 06/18/17) Methylprednisolone (Verified Allergy, Unknown, Rash/Hives/Itching., ) Penicillins (Verified Allergy, Unknown, Unknown., 06/18/17) Prednisone (Verified Allergy, Unknown, Rash/Hives/Itching., 06/18/17) Pregabalin (Verified Allergy, Unknown, Rash/Hives/Itching., 06/18/17) Vancomycin (Verified Allergy, Unknown, Jodi syn. ., 06/18/17) Medications Reported Home Medications Medications Dose Route/Sig Max Daily Dose Days Date Category Dose Instructions Ipratropium [place] (Ipratropium [place] (Nasal)) 0.03 % Spr 2 Sprays NA BID 06/18/17 Reported Coumadin (Warfarin Sodium) 3 Mg Tab 3 Mg PO 3XWK 06/18/17 Reported TAKE 3 MG DAILY ON MON/WED/FRI Folvite (Folic Acid) 1 Mg Tab 1 Mg PO DAILY 02/03/17 Reported Ferrous Sulfate 325 Mg Tab 325 Mg PO DAILY 02/03/17 Reported Prevacid (Lansoprazole) 30 Mg Cap 30 Mg PO QAM 02/03/17 Reported Ventolin Hfa (Albuterol) 200 Puffs/98845 Mcg Aers 2 Puffs INH QID PRN 08/08/16 Reported Alprazolam 0.5 Mg Tab 0.5 Mg PO QID PRN 08/08/16 Reported Warfarin Sodium 2 Mg Tab 2 Mg PO 4XWK 08/08/16 Reported TAKE 2 MG daily ON //FRI/SUN Effexor Extended Rel (Venlafaxine Hcl) 150 Mg Capcr 150 Mg PO QAM 08/08/16 Reported Montelukast Sodium (Montelukast Sod) 10 Mg Tab 10 Mg PO HS 08/08/16 Reported Topamax (Topiramate) 25 Mg Tab 25 Mg PO AMPM 04/17/16 Reported Breo Ellipta (Fluticasone Furoate-Vilanterol) 1 Inh Inh 1 Puff INH BID 04/17/16 Reported Levothyroxine Sodium 88 Mcg Tab 88 Mcg PO QAM 06/18/15 Reported Amiodarone HCl 200 Mg Tab 200 Mg PO QAM 10/10/14 Reported Physical Exam Vital Signs (Last 8hrs): Last 8 Hrs Date Time Temp Pulse Resp B/P (MAP) Pulse Ox O2 Delivery O2 Flow Rate FiO2 06/18/17 08:52 158/78 (104) 142/82 (102) 156/67 (96) 06/18/17 07:46 36.7 77 18 132/73 (92) 96 Room Air 06/18/17 07:45 Room Air 06/18/17 04:00 36.4 97 16 145/73 (97) 92 Room Air 06/18/17 03:00 36.4 85 16 131/85 95 Room Air 06/18/17 02:24 36.3 89 15 142/78 97 06/18/17 02:07 89 06/18/17 02:06 92 15 142/78 97 Room Air General Appearance: Alert and Oriented x3. NAD. Head: Normocephalic Atraumatic. Eyes: PERRLA, EOMI, conjunctiva and sclera clear Neck: Supple. No carotid bruits noted. No JVD. No HJD. Respiratory: Breath sounds clear to auscultation bilaterally. No w/r/r. Cardiovascular: Irregular rhythm, no murmurs Abdomen: Normal bowel sounds, soft nontender. no abdominal bruits. Extremities: No edema, no clubbing or cyanosis. distal pulses 2/4 bilaterally. Neuro: No focal deficits. Psychiatric: Normal affect. Data Last Resulted 06/18/17 05:16 Red Blood Count 4.29, Mean Corpuscular Volume 84.8, Mean Corpuscular Hemoglobin 27.0, Mean Corpuscular Hemoglobin Concent 31.9, Mean Platelet Volume 10.1, Neutrophils (%) (Auto) 60.9, Lymphocytes (%) (Auto) 20.5, Monocytes (%) (Auto) 13.3, Eosinophils (%) (Auto) 4.1, Basophils (%) (Auto) 0.8, Neutrophils # (Auto ) 4.88, Lymphocytes # (Auto) 1.64, Monocytes # (Auto) 1.06, Eosinophils # (Auto ) 0.33, Basophils # (Auto) 0.06 Last Resulted 06/18/17 05:16 Past 24 Hours Test 06/17/17 23:00 06/18/17 05:16 Range/Units Creatine Kinase MB 2.0 0.5-3.6 ng/ml Creatine Kinase MB Ratio 2.0 0-3.0 Prothromb Time International Ratio 2.6 H 2.8 H 0.9-1.1 Prothrombin Time 28.8 H 31.3 H 9.0-12.0 SECONDS Total Creatine Kinase 101 26-192 U/L Troponin I < 0.015 0-0.045 ng/ml EKG and telemetry as noted above Assessment & Plan Impression: 76-year-old female 1. Symptomatic atrial fibrillation/atrial flutter 2. History of hypertension Discussion/recommendations: The patient presents with nonspecific symptoms. She has been on a rhythm control strategy with amiodarone, hives and that she is not on chronic beta caridad due to relative slow heart rates when she is in sinus rhythm. Her presenting labs suggest that she was a little bit volume depleted. At present, recommend proceeding with a direct current cardioversion. Her INR has been below goal earlier this month, and therefore she will require transesophageal echocardiogram for further risk stratification in terms of ruling out left atrial appendage thrombus before cardioversion. Plan to consult anesthesia, proceed with procedure when scheduling permits. Will keep patient nothing by mouth. I spoke to her daughter, Kayla, on the telephone who is a nurse. A beats were provided with the patient's permission.
[2017-06-18] MEDS: LIDOCAINE HCL 2% VISC SOLN 20 ML UDC ONE (10:17)
[2017-06-18] MEDS ORDERED: PROPOFOL IV EMULSION 10 MG/ML 20 ML VIAL IV ONE ×3 (10:22→11:09)
[2017-06-18] MEDS ORDERED: LIDOCAINE HCL 2% 2 ML VIAL (20MG/ML) ONE (10:22)
--- NOTE | 2017-06-18 10:47 | Hospitalist Progress Note ---
Hospitalist Progress Note Date of Service Jun 18, 2017. (Rose Mccormick ., PA-C) Subjective Pt seen and evaluated. She expresses that she feels "fine" lying in bed today. Does feel a little lightheaded with ambulating to bathroom. Denies any palpitations, CP. States had frontal LAWRENCE last night that resolved. Yesterday at work she felt tired, weak and diaphoretic and had to sit for most of her 4 hour shift. Denies feeling weak or diaphoretic since hospital admission. Pt states has hx lower extremity edema with prolonged standing that resolves with elevation of her feet. Denies any current lower extremity edema. Denies fever/ chills, diaphoresis, N/V/D, syncope, vision changes, CP, SOB, orthopnea, palpitations, abdominal pain, paresthesias, rashes, urinary symptoms. (Rose Mccormick ., PA-C) Objective Vital Signs Date Time Temp Pulse Resp B/P (MAP) Pulse Ox O2 Delivery O2 Flow Rate FiO2 06/18/17 08:52 158/78 (104) 142/82 (102) 156/67 (96) 06/18/17 07:46 36.7 77 18 132/73 (92) 96 Room Air 06/18/17 07:45 Room Air 06/18/17 04:00 36.4 97 16 145/73 (97) 92 Room Air 06/18/17 03:00 36.4 85 16 131/85 95 Room Air 06/18/17 02:24 36.3 89 15 142/78 97 06/18/17 02:07 89 06/18/17 02:06 92 15 142/78 97 Room Air 06/18/17 01:31 82 23 162/75 96 Room Air 06/18/17 01:01 89 23 134/89 96 Room Air 06/18/17 00:31 85 23 124/75 96 Room Air 06/18/17 00:00 74 17 134/74 96 Room Air 06/17/17 23:37 90 22 158/85 96 Room Air 06/17/17 22:58 97 Room Air 06/17/17 22:56 88 18 151/89 98 Room Air 06/17/17 22:56 91 22 151/89 97 Room Air 06/17/17 22:34 99 06/17/17 22:19 36.3 110 20 178/82 98 Room Air (Rose Mccormick PA-C) Physical Exam General Appearance: WD/WN, no apparent distress Eyes: normal inspection, PERRL, EOMI ENT: pharynx normal (moist) Neck: supple, trachea midline, + pertinent finding (ROM intact) Respiratory/Chest: chest non-tender, lungs clear, normal breath sounds, no respiratory distress, no accessory muscle use Cardiovascular: no edema, no murmur, + irregularly irregular Abdomen: normal bowel sounds, non tender Extremities: normal range of motion, non-tender, no pedal edema Neurologic/Psychiatric: alert, normal mood/affect, oriented x 3 Skin: normal color, warm/dry, no rash (Rose Mccormick PA-C) Laboratory Results Last 24 Hours Test 06/17/17 23:00 06/17/17 23:04 06/18/17 04:32 06/18/17 05:16 White Blood Count 7.89 K/uL 8.00 K/uL Red Blood Count 4.56 M/uL 4.29 M/uL Hemoglobin 12.6 g/dL 11.6 g/dL Hematocrit 38.7 % 36.4 % Mean Corpuscular Volume 84.9 fL 84.8 fL Mean Corpuscular Hemoglobin 27.6 pg 27.0 pg Mean Corpuscular Hemoglobin Concent 32.6 g/dl 31.9 g/dl RDW Standard Deviation 45.7 fL 45.7 fL RDW Coefficient of Variation 14.7 % 14.7 % Platelet Count 255 K/uL 225 K/uL Mean Platelet Volume 9.9 fL 10.1 fL Prothrombin Time 28.8 SECONDS 31.3 SECONDS Prothromb Time International Ratio 2.6 2.8 Activated Partial Thromboplast Time 44.8 SECONDS Partial Thromboplastin Ratio 1.7 Sodium Level 139 mmol/L 142 mmol/L Potassium Level 4.7 mmol/L 4.6 mmol/L Chloride Level 109 mmol/L 113 mmol/L Carbon Dioxide Level 22 mmol/L 20 mmol/L Anion Gap 8.0 mmol/L 9.0 mmol/L Blood Urea Nitrogen 38 mg/dl 37 mg/dl Creatinine 1.87 mg/dl 1.69 mg/dl Est Creatinine Clear Calc Drug Dose 28.9 ml/min 31.8 ml/min Estimated GFR () 29.7 33.6 Estimated GFR (Non- 25.7 29.0 BUN/Creatinine Ratio 20.5 21.6 Random Glucose 139 mg/dl 109 mg/dl Calcium Level 8.9 mg/dl 8.3 mg/dl Phosphorus Level 3.8 mg/dl Magnesium Level 2.3 mg/dl Total Bilirubin < 0.1 mg/dl Aspartate Amino Transf (AST/SGOT) 26 U/L Alanine Aminotransferase (ALT/SGPT) 24 U/L Alkaline Phosphatase 174 U/L Total Creatine Kinase 101 U/L Creatine Kinase MB 2.0 ng/ml Creatine Kinase MB Ratio 2.0 Total Protein 7.4 gm/dl Albumin 3.7 gm/dl Globulin 3.7 gm/dl Albumin/Globulin Ratio 1.0 Lipase 139 U/L Thyroid Stimulating Hormone (TSH) 5.330 uIu/ml Bedside Troponin I < 0.030 ng/ml Bedside Glucose 106 mg/dl Neutrophils (%) (Auto) 60.9 % Lymphocytes (%) (Auto) 20.5 % Monocytes (%) (Auto) 13.3 % Eosinophils (%) (Auto) 4.1 % Basophils (%) (Auto) 0.8 % Neutrophils # (Auto) 4.88 K/uL Lymphocytes # (Auto) 1.64 K/uL Monocytes # (Auto) 1.06 K/uL Eosinophils # (Auto) 0.33 K/uL Basophils # (Auto) 0.06 K/uL Immature Granulocyte % (Auto) 0.4 % Immature Granulocyte # (Auto) 0.03 K/uL Troponin I < 0.015 ng/ml Free Thyroxine 1.45 ng/dl Test 06/18/17 07:38 Bedside Glucose 103 mg/dl (Rose Mccormick, DORA-C) Assessment and Plan ATRIAL FLUTTER/FIBRILLATION Pt lightheaded with ambulation only. denies other symptoms at this time. Rate 80 's-90's. PT:31.3, INR: 2.8 this morning. No leukocytosis. BUN:37, CR: 1.6 today. pt not orthostatic at this time. -will hold IV fluids at this time. -continue amiodarone -NPO until seen by cardiology -pending further cardiology consult recommendations DM TYPE II diet controlled HgbA1C was 6.3 on 03/12/17 DVT PROPHYLAXIS -Coumadin (Rose Mccormick, DONALDO) ADDENDUM: This is a 76 year old female presented with recurrent A. Fib Planned today for a BRENDAN cardioversion successfully cardioverted - to NSR monitor and further management was per cardiology continue Coumadin, INR is at goal 2-3 (Cathy Garcia, DO)
[2017-06-18 10:56] LABS: URINE APPEARANCE CLEAR (CLEAR); URINE BILIRUBIN NEG (NEG); URINE COLOR YELLOW; URINE EPITHELIAL CELL AUTO 20-30 /lpf (0-5); URINE NITRITE NEG (NEG); URINE PH 5.5 (4.5-7.5); URINE SPECIFIC GRAVITY 1.016 (1.000-1.030); UROBILINOGEN NEG (NEG); ZZUR CULT IF INDIC CLEAN CATCH YES
[2017-06-18 10:58] LABS: MANUAL MICROSCOPIC REQUIRED? NO; REVIEW REQ? NO
--- NOTE | 2017-06-18 11:10 | Cardiology Procedure Brief Nt ---
Preliminary Cardiology Note Procedure Date Jun 18, 2017. Pre-Procedure Diagnosis symptomatic atrial fibrillation Post-Procedure Diagnosis No BBO thrombus, successful conversion to SR Procedure(s) Performed BRENDAN guided CV Motorcycle Deliverer Jerome Snowden DO Machinist/Machine Builder(s) JORGE De Jesus Estimated Blood Loss none Preliminary Findings Severe LA enlargement. Mild MR. Mild to Moderate TR. No LA, or BOB thrombus Recommendations Continue coumadin and amiodarone. Will reassess this afternoon , regarding discharge later today, or more prolonged observation. Specimens none Anesthesia Dr Darian Ambrose, Lidocaine 40 mg IV, Propofol 300 J Complication(s) None Disposition recovery in post clam bed laborer recovery unit, then transfer back to telemetry
--- NOTE | 2017-06-18 11:11 | Anesthesiology Progress Note ---
Anesthesia Post Op Note Date & Time Jun 18, 2017 at 11:11 Vital Signs Pain Intensity: 0 Vital Signs Past 12 Hours Date Time Temp Pulse Resp B/P (MAP) Pulse Ox O2 Delivery O2 Flow Rate FiO2 06/18/17 11:06 67 18 122/45 (70) 96 Room Air 06/18/17 11:05 72 18 111/49 94 Nasal Cannula 4 06/18/17 11:00 72 18 122/49 96 Nasal Cannula 4 06/18/17 10:55 95 18 118/58 94 Nasal Cannula 4 06/18/17 10:50 106 18 126/56 94 Nasal Cannula 4 06/18/17 10:45 106 18 140/61 95 Nasal Cannula 4 06/18/17 10:40 102 18 162/70 96 Nasal Cannula 4 06/18/17 10:35 94 18 148/62 100 Nasal Cannula 4 06/18/17 08:52 158/78 (104) 142/82 (102) 156/67 (96) 06/18/17 07:46 36.7 77 18 132/73 (92) 96 Room Air 06/18/17 07:45 Room Air 06/18/17 04:00 36.4 97 16 145/73 (97) 92 Room Air 06/18/17 03:00 36.4 85 16 131/85 95 Room Air 06/18/17 02:24 36.3 89 15 142/78 97 06/18/17 02:07 89 06/18/17 02:06 92 15 142/78 97 Room Air 06/18/17 01:31 82 23 162/75 96 Room Air 06/18/17 01:01 89 23 134/89 96 Room Air 06/18/17 00:31 85 23 124/75 96 Room Air 06/18/17 00:00 74 17 134/74 96 Room Air 06/17/17 23:37 90 22 158/85 96 Room Air Notes Mental Status: alert / awake / arousable, participated in evaluation Pt Amnestic to Procedure: Yes Nausea / Vomiting: adequately controlled Pain: adequately controlled Airway Patency, RR, SpO2: stable & adequate BP & HR: stable & adequate Hydration State: stable & adequate Anesthetic Complications: no major complications apparent
--- NOTE | 2017-06-18 11:28 | Cardioversion ---
Electricial Cardioversion Rpt Date of Service: 06/18/17 Electrical Cardioversion Rprt Pre-Procedure Diagnosis symptomatic atrial fibrillation Post-Procedure Diagnosis No BOB thrombus, successful conversion to SR Procedure(s) Performed BRENDAN guided CV Perfect Bind Machine Operator Jerome Snowden DO It Operations Analyst(s) JORGE De Jesus Estimated Blood Loss none Procedure: After informed consent was obtained and a time out was performed the patient was sedated with the assistance of Dr Britta Ambrose of the anesthesia department. A BRENDAN was performed. Severe LA enlargement was present. Mild mitral regurgitation was present and mild to moderate tricuspid regurgitation was present. Lipomatous hypertrophy of the interatrial septum was present with a small PFO and mild right to left shunt documented with administration of agitated saline contrast. There was not left atrial or left atrial appendage thrombus. Patient then underwent synchronized direct current cardioversion receiving a single dose of 300 J of biphasic energy with successful conversion to sinus rhythm. Recommendations Continue coumadin and amiodarone. Will reassess this afternoon , regarding discharge later today, or more prolonged observation. Specimens none Anesthesia Dr Darian Ambrose, Lidocaine 40 mg IV, Propofol 300 J Complication(s) None Disposition recovery in post worm farm laborer recovery unit, then transfer back to telemetry
--- NOTE | 2017-06-18 12:36 | TEE ---
*NOTICE TO RECEIVING DEMOCRAT AGENCY This information is strictly Confidential and protected under [place] law. [place] law prohibits you from making any further disclosure of this information unless further disclosure is expressly permitted by the written consent of the person to whom it pertains or is authorized by law. A general authorization for the release of medical or other information is not sufficient for this purpose. Hospital accepts no responsibility if the information is made available to any other person, INCLUDING THE PATIENT. Interpretation Summary * Name: LORI MORALES Study Date: 06/18/2017 10:17 AM BP: 146/61 mmHg * Patient Location: [facility]\S\N283\S\2 HR: 97 * : 1940 (M/d/yyy) Gender: Female Height: 66 in * Age: 76 yrs Ethnicity: CA Weight: 196 lb * Ordering Physician: Hossein Snowden * Referring Physician: Self, Referred * Performed By: Roberta Gerard RCS * * Reason For Study: A-FIB, Pre C/V, Eval for CSOE * BSA: 2.0 m2 * -- Conclusions -- * Atrial fibrillation was present during the BRENDAN study which was performed for guidance of planned cardioversion. * The left atrium is severely dilated. * No left atrial mass or thrombus visualized. * No thrombus is detected in the left atrial appendage. * There is mild concentric left ventricular hypertrophy. * Ejection Fraction = 55-60%. * The right ventricle is normal in size and function. * There is mild mitral regurgitation. * There is moderate tricuspid regurgitation. * Lipomatous hypertrophy of the interatrial septum is noted. * There is a small PFO, with mild right to left shunt visualized with administration of agitated saline contrast. Procedure Details * BRENDAN Probe #2 utilized for procedure. * The study was performed in Cardiac Catheterization Lab. * Time out was conducted by the physician, nurse, and diagnostic technician with positive identification of patient and procedure. * Informed consent for Transesophageal Echocardiogram was obtained prior to the procedure. * An intravenous line was placed. A topical anesthetic agent was used for oropharangeal anesthesia. A bite block was inserted. * Sedation performed by the anesthesia department. * The patient's vital signs, including blood pressure, heart rate, pulse oximetry and cardiac rhythm were monitored throughout the procedure . * One vial of Definity ultrasound contrast was diluted in normal saline to a total volume of 10 ml. A total of '2' ml of solution was administered during imaging. * Lot # [id number] of Definity utilized for procedure. * Expiration date . * A multifrequency, multiplane transesopheageal echocardiographic endoscope was inserted and manipulated in the standard fashion to achieve multiplane views. * The transesophageal probe was passed without difficulty. * Contrast injection with agitated saline was performed. * The views which were obtained; basal, mid-esophageal, and aortic views. Procedure start time 1035. Procedure stop time 1101. * A 2D transesophageal echocardiogram was performed. * A 2D transesophageal echocardiogram with color flow Doppler was performed. * A 2D transesophageal echocardiogram with Doppler and color flow Doppler was performed. Left Ventricle * The left ventricle is normal in size. * There is mild concentric left ventricular hypertrophy. * Left ventricular systolic function is normal. * Ejection Fraction = 55-60%. * The left ventricular wall motion is normal. Right Ventricle * The right ventricle is normal in size and function. Atria * The left atrium is severely dilated. * No left atrial mass or thrombus visualized. * No thrombus is detected in the left atrial appendage. * Right atrial size is normal. * Lipomatous hypertrophy of the interatrial septum is noted. * There is a small PFO, with mild right to left shunt visualized with administration of agitated saline contrast. Mitral Valve * The mitral valve anatomy is normal. * There is no mitral valve prolapse present. * Mitral stenosis is absent. * There is mild mitral regurgitation. Tricuspid Valve * The tricuspid valve is normal. * There is no tricuspid stenosis. * There is moderate tricuspid regurgitation. Aortic Valve * The aortic valve is trileaflet. * No hemodynamically significant valvular aortic stenosis. * No aortic regurgitation is present. Pulmonic Valve * The pulmonic valve is not well visualized. Great Vessels * The aortic root is normal size. * There is mild non mobile atheromatous disease noted in the visualized portion of the descending thoracic aorta. Pericardium * There is no pericardial effusion.
[2017-06-18] MEDS ORDERED: METOPROLOL SUCC 25MG EXT REL TAB PO ONE (13:49)
--- NOTE | 2017-06-18 13:53 | Cardiology Progress Note ---
Cardiology Progress Note Date of Service Jun 18, 2017. Cardiology Progress Note Patient reassessed a few hours after BRENDAN guided cardioversion. She feels well. Telemetry reveals SR at 60-80 bpm while in bed. BP is stable. Feels well. Denies neurologic complaints. Pt stable from my standpoint for DC to home. Start metoprolol succinate 25 mg daily at bedtime, continue amiodarone 200 mg daily in am, continue prior coumadin dose. She should not miss coumadin today. Follow up with [facility] clinic early next week to ensure goal INR given recent CV. Follow up with Dr Hewitt within 1-3 weeks. Ailin Snowden DO
[2017-06-18] MEDS ORDERED: TPRSR25 PO (14:52)
--- NOTE | 2017-06-18 14:55 | Discharge Instructions ---
Discharge Instructions Date of Service Jun 18, 2017. Admission Reason for Admission: Palpitations Discharge Discharge Diagnosis / Problem: Recurrent A. Fib Discharge Goals Goal(s): Decrease discomfort, Improve function, Diagnostic testing, Therapeutic intervention Activity Recommendations Activity Limitations: resume your previous activity . Instructions / Follow-Up Instructions / Follow-Up Please follow-up with Dr. Pierre (covering for Dr. Calvo) on June 20 at 12:45PM * You had a cardioversion for your atrial fibrillation successfully * We are adding metoprolol succinate - a medication to control your heart rate - take this at night * continue current Coumadin dose (you will get your dose on 06/18 prior to being discharged, so start back on 06/19) - check back with the Coumadin clinic early next week * Follow-up with Dr. Hewitt, cardiology in 1-3 weeks * You can return to work after seeing your primary care physician; likely on June 23 * Recheck TSH in 4 weeks Current Hospital Diet Patient's current hospital diet: AHA Diet (Heart Healthy) Discharge Diet Recommended Diet: AHA Diet (Heart Healthy) Pending Studies Studies pending at discharge: no Medical Emergencies . Who to Call and When: Medical Emergencies: If at any time you feel your situation is an emergency, please call 911 immediately. . Non-Emergent Contact Non-Emergency issues call your: Primary Care Provider . . "Provider Documentation" section prepared by Cathy Garcia. . VTE Core Measure Inpt VTE Proph given/why not?: Warfarin (Coumadin)
--- NOTE | 2017-06-18 14:58 | Discharge Summary ---
Discharge Summary Date of Service Jun 18, 2017. Discharge Summary Admission Date: Jun 18, 2017 at 01:47 Discharge Date: Jun 18, 2017 Discharge Disposition: Home Principal Diagnosis: Recurrent A. Fib s/p cardioversion Medication Reconciliation New Medications: Metoprolol Succinate (Metoprolol Succinate ER) 25 Mg Tabcr 25 MG PO HS for 30 Days, #30 TABS Continued Medications: Albuterol Hfa (Ventolin Hfa) 200 Puffs/51287 Mcg Aers 2 PUFFS INH QID PRN for SOB/Wheezing Alprazolam (Alprazolam) 0.5 Mg Tab 0.5 MG PO QID PRN for Anxiety Amiodarone HCl (Amiodarone HCl) 200 Mg Tab 200 MG PO QAM Ferrous Sulfate (Ferrous Sulfate) 325 Mg Tab 325 MG PO DAILY Fluticasone Furoate-Vilanterol (Breo Ellipta) 1 Inh Inh 1 PUFF INH BID Folic Acid (Folvite) 1 Mg Tab 1 MG PO DAILY, TAB Ipratropium Mcalester (Nasal) (Ipratropium Mcalester) 0.03 % Spr 2 SPRAYS NA BID Lansoprazole (Prevacid) 30 Mg Cap 30 MG PO QAM, CAP Levothyroxine Sodium (Levothyroxine Sodium) 88 Mcg Tab 88 MCG PO QAM, TAB Montelukast Sod (Montelukast Sodium) 10 Mg Tab 10 MG PO HS Topiramate (Topamax ) 25 Mg Tab 25 MG PO AMPM Venlafaxine Hcl (Effexor Extended Rel) 150 Mg Capcr 150 MG PO QAM Warfarin Sodium (Warfarin Sodium) 2 Mg Tab 2 MG PO 4XWK TAKE 2 MG daily ON //FRI/SUN Warfarin Sodium (Coumadin) 3 Mg Tab 3 MG PO 3XWK TAKE 3 MG DAILY ON FRI/FRI/FRI Admission Information HPI (per Admitting provider): DATE OF ADMISSION: 06/18/2017 PRIMARY CARE PHYSICIAN: ____ CHIEF COMPLAINT: Not feeling well, ____ AFib. HISTORY OF PRESENT ILLNESS: History obtained from patient records. Medical history significant for paroxysmal AFib, hypertension, hypothyroidism, possibly AFib and Aflutter, chronic renal insufficiency, baseline creatinine 1.7, diabetes type 2, diet controlled, recent confinement, last May 2016 for acute renal failure. About 2 days ago, the patient felt tired, appetite not too good, weird sensation across her chest. 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 She took her, blood pressure in the 90s. She could not feel her pulse similar to episodes of AFib in the past. The patient's persistent symptoms despite at home. The patient was brought to the Emergency Room. In the Emergency Room, the patient noted to be in rapid atrial flutter, heart rate 110. The patient received Cardizem IV. The patient feels currently more comfortable. Compliant with medications. No unusual stress. MEDICAL HISTORY: As above. A 2D echo from April 2016 showed EF of 60%-64%, LV wall thickness, left atrial enlargement, LV diastolic dysfunction, mild MR, mild TR. SURGERIES: Sinus surgery, back surgery, shoulder surgery, neck surgery, bilateral lubrication. HOME MEDICATIONS: Include Ventolin, alprazolam, amiodarone, Ellipta, Folvite, ferrous sulfate, Coumadin, ipratropium, Prevacid, levothyroxine, montelukast, Topamax, Effexor ____ Coumadin. ALLERGIES: ALLERGIC TO CEPHALEXIN, DEXAMETHASONE, FUROSEMIDE, MECLIZINE, METHYLPREDNISOLONE, VANCOMYCIN, GABAPENTIN, CELECOXIB, PENICILLIN, SULFA, PREGABALIN. PERSONAL AND SOCIAL HISTORY: Past tobacco abuse. 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 REVIEW OF SYSTEMS: As per HPI, all others negative. PHYSICAL EXAMINATION: VITAL SIGNS: Blood pressure was noted to be 178/82, later 154/74; pulse rate 110, later 85; RR 17; temperature 36.3, sats 96 on room air. GENERAL: ____ slightly anxious, obese, no respiratory distress. SKIN: Normal color. Warm. HEENT: Banning palpebral conjunctivae. No ptosis. Dry buccal mucosa. NECK: Short neck, supple. CHEST: Decreased effort, decreased breath sounds. No tenderness. HEART: Regular. Palpable pulses. ABDOMEN: Some distention, nontender. EXTREMITIES: Minimal erythema, no tenderness, somewhat sensitive to touch. NEUROLOGIC: Coherent, no gross focality. Gait and stance not assessed. LABORATORY DATA: Hemoglobin was noted to be 12.6, hematocrit ____, white cell count ____, platelets ____. Sodium ____, potassium ____, chloride 109, CO2 22, BUN 38, creatinine ____, glucose was 139. EKG, as per my interpretation, rate 100, atrial flutter. Chest x-ray, as per my interpretation, cardiomegaly, atelectasis. INR was 2.6. ASSESSMENT: 1. Palpitations, discomfort secondary to recurrent atrial fibrillation/flutter. INR therapeutic possible precipitants : uncontrolled blood pressure mild clinical dehydration (ARF on CRI) 2. DM2, diet controlled, well controlled as of recent outpx HgA1c 3. past tobacco abuse, PLAN: Observation PCU. Facilitate amiodarone. Monitor creatinine response to IV fluids, monitor blood pressure, may need to augment/adjust regimen. Cardiology consult RE recurrent AF/AFl (Patient known to Dr. Hewitt ) NPO for now for possible cardioversion in the morning. ISS BG goal 140-180 DVT prophylaxis, Coumadin, INR 2-3. Full code. Hospital Course ATRIAL FLUTTER/FIBRILLATION Pt lightheaded with ambulation only. denies other symptoms at this time. Rate 80 's-90's. PT:31.3, INR: 2.8 this morning. No leukocytosis. BUN:37, CR: 1.6 today. pt not orthostatic at this time. -will hold IV fluids at this time. -continue amiodarone -NPO until seen by cardiology -pending further cardiology consult recommendations DM TYPE II diet controlled HgbA1C was 6.3 on 03/12/17 DVT PROPHYLAXIS -Coumadin (Rose Mccormick, DONALDO) ADDENDUM: This is a 76 year old female presented with recurrent A. Fib Planned today for a BRENDAN cardioversion successfully cardioverted - to NSR monitor and further management was per cardiology continue Coumadin, INR is at goal 2-3 (Cathy Garcia, DO) Total time spent on discharge = 25 minutes This includes examination of the patient, discharge planning, medication reconciliation, and communication with other providers. Discharge Instructions Please follow-up with Dr. Pierre (covering for Dr. Calvo) on June 20 at 12:45PM * You had a cardioversion for your atrial fibrillation successfully * We are adding metoprolol succinate - a medication to control your heart rate - take this at night * continue current Coumadin dose (you will get your dose on 06/18 prior to being discharged, so start back on 06/19) - check back with the Coumadin clinic early next week * Follow-up with Dr. Hewitt, cardiology in 1-3 weeks * You can return to work after seeing your primary care physician; likely on Friday, June 23 * Recheck TSH in 4 weeks
[2017-06-18] MEDS ORDERED: WARFARIN SOD 3 MG TAB PO ONE (15:00)
[2017-06-18] MEDS ORDERED: WARFARIN SOD 3 MG TAB PO SCH (16:00)
[2017-06-18] MEDS ORDERED: MONTELUKAST SOD 10 MG TAB PO SCH (21:00)
[2017-06-19] MEDS ORDERED: AMIODARONE 200 MG TAB PO SCH (09:00)
[2017-06-19] MEDS ORDERED: WARFARIN SOD 2 MG TAB PO SCH (16:00)
[2017-06-19] MEDS ORDERED: METOPROLOL SUCC 25MG EXT REL TAB PO SCH (21:00)
== END 2017-06-18 16:40 | disposition home or self-care (01) ==
LOC: C.EDB 22:16 → C.MED 06-18 01:47 → ENRESERV 06-18 02:20
PROVIDERS: ADMIT Internal Medicine; ATTEND Family Medicine
DX: I48.91 Unspecified atrial fibrillation (principal); I48.92 Unspecified atrial flutter; E66.9 Obesity, unspecified; I12.9 Hypertensive chronic kidney disease with stage 1 through stage 4 chronic kidney disease, or unspecified chronic kidney disease; E03.9 Hypothyroidism, unspecified; E11.9 Type 2 diabetes mellitus without complications; G47.33 Obstructive sleep apnea (adult) (pediatric); N18.9 Chronic kidney disease, unspecified; Z79.01 Long term (current) use of anticoagulants; Z87.891 Personal history of nicotine dependence; Z83.3 Family history of diabetes mellitus

== ENCOUNTER 2017-10-14 09:17 | Inpatient (IN) | payer MEDICARE, OTHER ==
[~2017-10-14] VITALS: Ht 167.6 cm; Wt 86.3 kg
[~2017-10-14 09:17] MED LIST changes: -FOLI1TAB7 PO; +FOLI1TAB8 PO; +IPRA0.03; -PRED1SUS3 OPR; -TPM25 PO; +TPRSR/25 PO; +WARF3TAB PO
[2017-10-14 10:27] LABS: BASO % 0.5 %; BASO ABS # 0.04 K/uL (0-0.2); EOS % 4.1 %; EOS ABS # 0.35 K/uL (0-0.5); HEMOGLOBIN 13.9 g/dL (12.0-16.0); IG# 0.02 K/uL (0.00-0.02); LYMPH % 19.7 %; MEAN CELL VOLUME 82.8 fL (80-100); MEAN CORPUSCULAR HEMOGLOBIN 27.4 pg (25-34); MEAN CORPUSCULAR HGB CONC 33.1 g/dl (32-36); MEAN PLATELET VOLUME 10.6 fL (7.4-10.4); MONO % 10.9 %; MONO ABS # 0.94 K/uL (0.11-0.59); NEUT % 64.6 %; NEUT ABS # 5.57 K/uL (1.4-6.5); PLATELET COUNT 250 K/uL (130-400); RED CELL DISTRIBUTION WIDTH CV 14.7 % (11.5-14.5); RED CELL DISTRIBUTION WIDTH SD 44.3 fL (36.4-46.3); WHITE BLOOD COUNT 8.62 K/uL (4.8-10.8)
[2017-10-14 10:36] LABS: INR 2.7 (0.9-1.1)
--- NOTE | 2017-10-14 10:38 | DIAGNOSTIC IMAGING REPORT ---
CHEST ONE VIEW PORTABLE CLINICAL HISTORY: Atypical chest pain. Weakness, dizziness. COMPARISON STUDY: June 27, 2017 FINDINGS: The cardiac and mediastinal contours are normal. There is no evidence of focal pulmonary consolidation. There is no evidence of failure. No pleural effusions are visualized.[ Postsurgical changes are present within the cervical spine IMPRESSION: No active disease in the chest. Electronically signed by: Juan Moya M.D. 10/14/2017 10:36 AM Dictated Date/Time: 10/14/2017 10:36 AM
[2017-10-14 10:39] LABS: ALBUMIN 3.8 gm/dl (3.4-5.0); BLOOD UREA NITROGEN 45 mg/dl (7-18); CALCIUM 9.6 mg/dl (8.5-10.1); CARBON DIOXIDE 21 mmol/L (21-32); CREATININE 1.78 mg/dl (0.60-1.20); GLUCOSE 106 mg/dl (70-99); LIPASE 132 U/L (73-393); POTASSIUM 4.3 mmol/L (3.5-5.1); SODIUM 135 mmol/L (136-145)
[2017-10-14 10:42] LABS: ALKALINE PHOSPHATASE 138 U/L (45-117); ALT/SGPT 23 U/L (12-78); AST/SGOT 28 U/L (15-37); TOTAL PROTEIN 7.7 gm/dl (6.4-8.2)
[2017-10-14] MEDS ORDERED: NORT10CA4 PO (11:07)
[2017-10-14] MEDS ORDERED: LANS15CA45 PO (11:07)
[2017-10-14 13:05] VITALS: O2SAT 98; Ht 167.6 cm; Wt 86.3 kg
--- NOTE | 2017-10-14 14:11 | CARDIOLOGY CONSULTATION ---
DATE OF CONSULTATION: 10/14/2017 REFERRING PHYSICIAN: Dr. Kulkarni. INDICATIONS: Intermittent dizziness, lightheadedness and persistent atrial fibrillation/flutter. HISTORY OF PRESENT ILLNESS: The patient is a 77-year-old female whose past history is notable for prior paroxysmal, now persistent atrial fibrillation/flutter with patient remaining in atrial flutter since at least June of last year, per review of records. She carries an underlying history of asthmatic lung disease with chronic dyspnea, spinal stenosis with chronic back pain, hypertension, obstructive sleep apnea, type 2 diabetes mellitus per review of records. The patient presents now on urging from primary care physician, Dr. Calvo after patient contacted the office yesterday with notable episodes of presyncope. She notes while at work developing symptoms of acute flushing, warmth, mild diaphoresis and lightheadedness. Notes symptoms would resolve after sitting quietly for approximately 45 minutes, but had 2 episodes which recurred. 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 She has noted to have multiple episodes of similar complaints over the past 2-3 weeks. She contacted after several hours of returning home, primary care's office who recommended ER evaluation and the patient declined though she was contacted by their office this morning, urged the patient to seek ER evaluation. She denies any chest pains. Notes no recent fevers, chills or productive cough. Notes no melena, hematochezia, dysuria or hematuria. Appetite has been stable. Has been changing diet in an attempt to lose weight, predominantly a Paleo diet with increased protein and minimizing carbohydrates. Notes no headache or visual changes. Notes no sense of racing heart or palpitations, not aware of tachy or bradyarrhythmias during events. ALLERGIES: MULTIPLE INCLUDE CELEBREX, CEPHALEXIN, DEXAMETHASONE, FUROSEMIDE, GABAPENTIN, MECLIZINE, METHYLPREDNISOLONE, PENICILLIN, PREGABALIN, SULFA AND VANCOMYCIN. MEDICATIONS: Her prehospital medications were levothyroxine 88 mcg p.o. day, Atrovent nasal spray, folic acid 1 mg per day, Singulair 10 mg p.o. every day, metoprolol succinate 25 mg p.o. daily, albuterol inhaler 108 two puffs q. 6 hours p.r.n., alprazolam p.r.n., furosemide 325 mg p.o. daily, oxycodone p.r.n. pain, Topamax 25 mg q.a.m. and p.m., warfarin, Prevacid 15 mg q.a.m. PAST SURGICAL HISTORY: Notable for prior sinus surgery, rotator cuff surgery, lumbar laminectomy in 2001, prior neck fusion in 1993 and subsequent repeat in 1999 and 2011. FAMILY HISTORY: Notable for diabetes in father and Parkinsonism in mother. 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 PHYSICAL EXAMINATION: VITAL SIGNS: Heart rate is 80, in atrial flutter; blood pressure is 122/65, O2 saturations 98% on room air. HEENT: Normocephalic, atraumatic. Nares without discharge. Throat was clear. NECK: Supple without thyromegaly, lymphadenopathy. There is no distinct jugular venous distention. LUNGS: Reveal mildly diminished breath sounds, but are clear to auscultation. CARDIOVASCULAR: Irregularly irregular. There is no S3 gallop. ABDOMEN: Soft, nontender. There is no palpable hepatosplenomegaly. There is no hepatojugular reflux. EXTREMITIES: Without cyanosis or clubbing. There is no peripheral edema. There are intact distal pulses. There is no abdominal or femoral bruits audible. DATA: EKG reveals atrial flutter with controlled ventricular response rate, rate 88, nonspecific ST-segment changes. LABORATORY STUDIES: White cell count is 8.6, hemoglobin is 13.9, hematocrit is 42.0. Sodium is 135, potassium is 4.3, chloride is 106, bicarbonate is 21, BUN is 45, creatinine is 1.78, glucose is 106. Lipase is 132. Point of care troponin is less than 0.03. IMAGING DATA: Chest x-ray revealed no infiltrate or edema. Per review of prior records, echocardiogram done in May 2017 demonstrated preserved LV systolic function with mild left ventricular hypertrophy. There was notable mild mitral and moderate tricuspid insufficiency per report. Holter monitor done in June 2017 demonstrated persistent atrial fibrillation with rare ventricular ectopic beats, intermittent sweat spells with heart rate of 105. No pauses. IMPRESSION: A 77-year-old female with history of persistent atrial fibrillation, prior attempts to return to sinus rhythm including transesophageal-guided cardioversion were unsuccessful. She has remained in atrial fibrillation/flutter per report since at least June. 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 She is on urging from her physician who presented to the Emergency Room today where she was found to be once again in atrial flutter, though with controlled ventricular response rate. No acute findings otherwise. RECOMMENDATIONS: I have discussed findings in detail with the patient. Atrial fibrillation/flutter is persistent, does not to be pretty overt inciting cause of her complaints, though tachy or bradyarrhythmias not completely excluded. Would recommend admitting to telemetry, watching for bradyarrhythmias or tachyarrhythmias as activities are increased excluding possible evaluation for ischemic disease. The patient will be kept n.p.o. after midnight.
[2017-10-14] MEDS ORDERED: ACETAMINOPHEN 325 MG TAB PO PRN (15:15)
[2017-10-14] MEDS ORDERED: NITROGLYCERIN 0.4 MG SL PER TAB CHARGE SL PRN (15:15)
[2017-10-14] MEDS ORDERED: POLYETHYLENE (MIRALAX) 17 GM PACK PO PRN (15:15)
[2017-10-14] MEDS ORDERED: ALUMINUM/MAGNESIUM/SIMETH (MAALOX MAX) 30 ML UDC PO PRN (15:15)
--- NOTE | 2017-10-14 15:18 | History and Physical ---
History & Physical Date & Time of Service: Oct 14, 2017 at 15:18 Chief Complaint: Weakness - Dizzy - A Fib Primary Care Physician: Florentin Calvo D.O. History of Present Illness Source: patient this is a 77 yo F with hx of chronic afib /flutter failed out pt cardioversion . Type 2 DM . CKD stage 3 . Lumber spinal stenosis , Cervical spinal stenosis, Meniere's disease, Hypothyroidism presented to ER after having intermittent episodes of pre syncope /dizzy spell while at work Pt works at the [employer] the past 3-4 days she noted having dizzy spell . leading her to be very lightheaded, diaphoretic . felt warm and flushed feeling like she is going to pass out Pt usually takes break with this episodes sits on bench , it takes at least 30 mins for her to feel better yesterday she has two episodes at work , took longer time for her to recover , felt very weak and fatigued , went home and slept rest of the evening her family physician was notified of the symptom , was asked to come to ER pt refuse to come to ER yesterday this morning she got another call from [facility] recommending her to have ER visit in ER , pt did not had any symptoms , EKG shows Aflutter with controlled rate of 88 bpm INR therapeutic ~2 Past Medical/Surgical History Medical Problems: (1) Asthma, moderate persistent Status: Chronic (2) Atrial fibrillation and flutter Status: Chronic (3) CKD (chronic kidney disease), stage III Status: Chronic (4) Depression Status: Chronic (5) Diet-controlled diabetes mellitus Status: Chronic (6) HTN (hypertension) Status: Chronic (7) Hypothyroidism Status: Chronic (8) Meniere disease Status: Chronic (9) RADHA (obstructive sleep apnea) Status: Chronic Surgical Problems: (1) H/O sinus surgery Status: Chronic (2) History of laminectomy Status: Chronic (3) History of repair of left rotator cuff Status: Chronic (4) Hx of neck surgery Status: Chronic Family History Diabetes mellitus Social History Smoking Status: Former Smoker Drug Use: none Marital Status: Housing status: lives with significant other Occupational Status: employed Immunizations History of Influenza Vaccine: Yes Influenza Vaccine Date: Apr 26, 2015 History of Tetanus Vaccine?: Yes Tetanus Immunization Date: Jul 15, 2009 History of Pneumococcal: Yes Pneumococcal Date: Sep 21, 2015 History of Hepatitis B Vaccine: Unknown Allergies Coded Allergies: Sulfa Antibiotics (Verified Allergy, Severe, Severe rxn: rash and hives, ) Celecoxib (Verified Allergy, Intermediate, Rash/Hives/Itching., 10/14/17) Cephalexin (Verified Allergy, Intermediate, Rash/Hives/Itching., 10/14/17) Furosemide (Verified Allergy, Intermediate, Rash/Hives/Itching., 10/14/17) Gabapentin (Verified Allergy, Intermediate, Rash/Hives/Itching., 10/14/17) Pregabalin (Verified Allergy, Intermediate, Rash/Hives/Itching., 10/14/17) Meclizine (Verified Allergy, Unknown, Unknown, 10/14/17) Methylprednisolone (Verified Allergy, Unknown, Rash/Hives/Itching., ) Penicillins (Verified Allergy, Unknown, Unknown., 10/14/17) Prednisone (Verified Allergy, Unknown, Rash/Hives/Itching., 10/14/17) Vancomycin (Verified Allergy, Unknown, Jodi syn. ., 10/14/17) Dexamethasone (Verified Adverse Reaction, Intermediate, Steroid psychosis. , 10/14/17) Home Medications Scheduled Ferrous Sulfate (Ferrous Sulfate), 325 MG PO BID Fluticasone Furoate-Vilanterol (Breo Ellipta), 1 PUFF INH DAILY Folic Acid (Folvite), 1 MG PO DAILY Ipratropium Norton (Nasal) (Ipratropium Norton), 2 SPRAYS NA BID Lansoprazole (Cvs Lansoprazole), 15 MG PO QAM Levothyroxine Sodium (Levothyroxine Sodium), 88 MCG PO QAM Metoprolol Succinate (Metoprolol Succinate ER), 25 MG PO HS Montelukast Sod (Montelukast Sodium), 10 MG PO HS Topiramate (Topamax ), 25 MG PO AMPM Venlafaxine Hcl (Effexor Extended Rel), 150 MG PO QAM Warfarin Sodium (Warfarin Sodium), 2 MG PO 4XWK Warfarin Sodium (Coumadin), 3 MG PO 3XWK Scheduled PRN Albuterol Hfa (Ventolin Hfa), 2 PUFFS INH QID PRN for SOB/Wheezing Alprazolam (Alprazolam), 0.5 MG PO TID PRN for Anxiety Review of Systems Constitutional: + sweats, + weakness, + fatigue Respiratory: + shortness of breath, + dyspnea on exertion Musculoskeletal: No joint pain, No muscle pain, No swelling, No calf pain, No problem reported Neurologic: + weakness, + numbness/tingling, + vertigo, + problem reported ( felt dizzy and lightheaded . associated with pre syncope , later had incrased fatigue and weakness ) Endocrine: + fatigue Physical Exam Vital Signs Date Time Temp Pulse Resp B/P (MAP) Pulse Ox O2 Delivery O2 Flow Rate FiO2 10/14/17 15:07 74 18 142/49 100 Room Air 10/14/17 13:58 79 20 112/72 95 Room Air 10/14/17 13:55 77 10/14/17 13:05 98 Room Air 10/14/17 12:11 81 20 122/65 98 Room Air 10/14/17 10:53 70 20 116/55 97 Room Air 81 129/67 90 125/65 10/14/17 10:06 79 10/14/17 09:23 36.3 100 18 123/69 94 Room Air General Appearance: no apparent distress Head: normocephalic, atraumatic Eyes: normal inspection, PERRL, EOMI, sclerae normal ENT: normal ENT inspection Neck: thyroid normal, no JVD, no carotid bruits, trachea midline Respiratory/Chest: chest non-tender, lungs clear, normal breath sounds Cardiovascular: no edema, normal peripheral pulses, + irregularly irregular Abdomen/GI: normal bowel sounds, non tender, soft Extremities/Musculoskelatal: normal inspection, no calf tenderness, normal capillary refill, no pedal edema Neurologic/Psych: no motor/sensory deficits, alert, normal mood/affect, oriented x 3 Diagnostics Laboratory Results Results Past 24 Hours Test 10/14/17 09:40 10/14/17 10:38 Range/Units White Blood Count 8.62 4.8-10.8 K/uL Red Blood Count 5.07 4.2-5.4 M/uL Hemoglobin 13.9 12.0-16.0 g/dL Hematocrit 42.0 37-47 % Mean Corpuscular Volume 82.8 80-100 fL Mean Corpuscular Hemoglobin 27.4 25-34 pg Mean Corpuscular Hemoglobin Concent 33.1 32-36 g/dl Platelet Count 250 130-400 K/uL Mean Platelet Volume 10.6 7.4-10.4 fL Neutrophils (%) (Auto) 64.6 % Lymphocytes (%) (Auto) 19.7 % Monocytes (%) (Auto) 10.9 % Eosinophils (%) (Auto) 4.1 % Basophils (%) (Auto) 0.5 % Neutrophils # (Auto) 5.57 1.4-6.5 K/uL Lymphocytes # (Auto) 1.70 1.2-3.4 K/uL Monocytes # (Auto) 0.94 0.11-0.59 K/uL Eosinophils # (Auto) 0.35 0-0.5 K/uL Basophils # (Auto) 0.04 0-0.2 K/uL RDW Standard Deviation 44.3 36.4-46.3 fL RDW Coefficient of Variation 14.7 11.5-14.5 % Immature Granulocyte % (Auto) 0.2 % Immature Granulocyte # (Auto) 0.02 0.00-0.02 K/uL Prothrombin Time 27.8 9.0-12.0 SECONDS Prothromb Time International Ratio 2.7 0.9-1.1 Activated Partial Thromboplast Time 43.0 21.0-31.0 SECONDS Partial Thromboplastin Ratio 1.7 Sodium Level 135 136-145 mmol/L Potassium Level 4.3 3.5-5.1 mmol/L Chloride Level 106 98-107 mmol/L Carbon Dioxide Level 21 21-32 mmol/L Anion Gap 8.0 3-11 mmol/L Blood Urea Nitrogen 45 7-18 mg/dl Creatinine 1.78 0.60-1.20 mg/dl Est Creatinine Clear Calc Drug Dose 29.3 ml/min Estimated GFR () 31.3 Estimated GFR (Non- 27.0 BUN/Creatinine Ratio 25.4 10-20 Random Glucose 106 70-99 mg/dl Calcium Level 9.6 8.5-10.1 mg/dl Magnesium Level 2.4 1.8-2.4 mg/dl Total Bilirubin 0.4 0.2-1 mg/dl Direct Bilirubin < 0.1 0-0.2 mg/dl Aspartate Amino Transf (AST/SGOT) 28 15-37 U/L Alanine Aminotransferase (ALT/SGPT) 23 12-78 U/L Alkaline Phosphatase 138 45-117 U/L Total Protein 7.7 6.4-8.2 gm/dl Albumin 3.8 3.4-5.0 gm/dl Lipase 132 73-393 U/L Bedside Troponin I < 0.030 0-0.045 ng/ml Diagnostic Radiology CHEST ONE VIEW PORTABLE CLINICAL HISTORY: Atypical chest pain. Weakness, dizziness. COMPARISON STUDY: June 27, 2017 FINDINGS: The cardiac and mediastinal contours are normal. There is no evidence of focal pulmonary consolidation. There is no evidence of failure. No pleural effusions are visualized.[ Postsurgical changes are present within the cervical spine IMPRESSION: No active disease in the chest. CT HEAD WITH OUT CONTRAST : IMPRESSION: There is no hemorrhage, mass effect, or evidence of acute territorial ischemia by CT criteria. CAROTID USG : IMPRESSION: 1. Minimal/mild plaque dimension bilaterally. 2. No significant stenosis. EKG Vent. rate [address] interval * ms QRS duration 88 ms QT/QTc 544/658 ms P-R-T axes * -4 19 Atrial fibrillation with rapid ventricular response with premature ventricular or aberrantly conducted complexes Left axis deviation Left bundle branch block Abnormal ECG When compared with ECG of 18-JUN-2016 11:11, Atrial fibrillation has replaced Sinus rhythm Vent. rate has increased BY 38 BPM Impression Assessment and Plan AFIB /FLUTTER WITH CONTROLLED VENTRICULAR RESPONSE dx with paroxysmal afib /Flutter in 2014 was placed on Amiodarone and underwent BRENDAN cardioversion , later developed episode of dizzy spell -found be in rate controlled Afib , Repeat BRENDAN Cardioversion was unsuccessful as per Cardiology note in 06/30/[address] Hewitt pt was on Toprol XL 25 mg daily and Amiodarone 200 mg daily today pt presents with Afib /flutter associated with episodes of dizzy spell , pre syncope on Coumadin R/O ACS , serial troponin , ECHO in AM pt denies of any angina symptom NPO past midnight for possible stress test in AM appreciate input form Cardiology pt home medication current list just shows Toprol XL 25 Amiodarone was not listed when discussing about home meds Pt is un aware of Toprol XL has been taking Amiodarone 200 mg daily -took 1 tab this AM need to R/o Bradyarrhythmia causing her the symptom cont tele monitoring D/W Dr Chavarria , will cont beta caridad hold amiodarone ( has prolong Qtc > 600 ) SYNCOPE possible due to stacy arrhythmia has chronic afib /aflutter since 2015 with out any symptom tele monitoring CT head negative for CVA Carotid Doppler-no significant stenosis TIFFANY ON CKD STAGE 3 Cr elevated 1.7 ( baseline Cr 1.3 on 08/20/17 ) ordered for gentle hydration repeat BMP in AM HTN : stable cont out pt meds PROLONG QTC Qtc > 600 avoid medication which prolongs qTC ( Zofran , quinolones) Amiodarone on hold daily electronic device monitor K /MG level HYPOTHYROIDISM TSH wnl cont levothyroxine DEPRESSION : Hold SSRI -Effexor for prolong Qtc FULL CODE DVT PROPHYLAXIS on Coumadin INR therapeutic DISPOSITION : expected to be discharged home when medically stable Level of Care Telemetry Advanced Directives Existing Living Will: No Existing Power of Oil Heater Installer: No Resuscitation Status FULL RESUSCITATION VTE Prophylaxis VTE Risk Assessment Done? Y/N: Yes Risk Level: Moderate Given or contraindicated: Warfarin (Coumadin) Additional Copies To Nish Chavarria M.D. Sulman, Scott A., D.O.
[2017-10-14] MEDS ORDERED: ALBUTEROL HFA 8 GM INHALER INH PRN (15:45)
[2017-10-14] MEDS ORDERED: ALPRAZOLAM 0.5 MG TAB PO PRN (15:45)
[2017-10-14 16:00] VITALS: O2SAT 100
[2017-10-14] MEDS ORDERED: WARFARIN SOD 2 MG TAB PO SCH (16:00)
--- NOTE | 2017-10-14 16:00 | DIAGNOSTIC IMAGING REPORT ---
CAROTID DOPPLER NECK ART HISTORY: Mental status change syncope /rule out carotid stenosis COMPARISON: 08/09/2017 TECHNIQUE: Real-time, grayscale, and color Doppler sonography of the carotid arteries was performed. Imaging reviewed in the transverse and longitudinal planes. All measurements were calculated based on NASCET criteria. FINDINGS: Antegrade flow is seen in the bilateral vertebral arteries. The brachial pressures are hemodynamically similar. Mild plaque formation bilaterally The peak systolic velocity within the right ICA is 57. The right systolic ratio is 0.65. The peak systolic velocity within the left ICA is 41. The left systolic ratio is 0.53. IMPRESSION: 1. Minimal/mild plaque dimension bilaterally. 2. No significant stenosis. The above report was generated using voice recognition software. It may contain grammatical, syntax or spelling errors. Electronically signed by: Doe Cyr M.D. 10/14/2017 3:59 PM Dictated Date/Time: 10/14/2017 3:58 PM
[2017-10-14 16:29] VITALS: BP 152/91; PULSE 84; TEMP 36.4; O2SAT 98
[2017-10-14] MEDS ORDERED: SODIUM CHLORIDE 0.9% 1000ML 1,000 ML IV SCH (16:30)
--- NOTE | 2017-10-14 17:25 | EMERGENCY ROOM VISIT NOTE ---
ED Visit Note First contact with patient: 09:33 Chief Complaint: Dizziness. History of Present Illness: Ms. Barakat is a 77-year-old white female who ambulates into the ED complaining of a dizziness sensation. Historically patient reports she has a history of atrial fibrillation/flutter, hypertension, type 2 diabetes. 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 She did take a rest after the first episode but then when she returning to work the sensation returned. Each episode lasted approximately 30-45 minutes. She did contact her primary care provider who encouraged her to come to the ED for further evaluation and care but did not come to the ED. Patient reports she has similar episodes of this type of discomfort multiple times during the week. The previous episode before this last was approximately 1 week ago. She does report that her lightheadedness/dizziness sensation has subsequently resolved and her current symptom is a heaviness of her head and upper and lower extremities. She has not identified any aggravating or alleviating factors related to this discomfort. She has not taken medications for this discomfort prior to arrival at the hospital. She does not describe this heaviness sensation as pain and does not rate her discomfort. She reports that since the onset of her lightheadedness/dizziness and currently with her heaviness sensation she is not had any actual sensations of room spinning, headaches, she has not been experiencing any upper respiratory tract symptoms, chest discomfort, palpitations, orthopnea, dependent edema, previous clots, claudication, cramping , decreased appetite, nausea, vomiting, any signs of bleeding. Review of Systems: As noted above in history of present illness. All body systems were reviewed and found to be negative as noted above. Past Medical History: As previously noted and asthma, spinal stenosis with chronic pain, obstructive sleep apnea, chronic kidney disease, hypothyroidism, M nire's disease, depression, status post unspecified sinus surgery, unspecified laminectomy, repair of a left rotator cuff injury and unspecified neck surgery. Current Medications: Medications Dose Route/Sig Max Daily Dose Days Date Category Dose Instructions [facility] Lansoprazole (Lansoprazole) 15 Mg Cap 15 Mg PO QAM 10/14/17 Reported Metoprolol Succinate ER (Metoprolol Succinate) 25 Mg Tabcr 25 Mg PO HS 06/27/17 Reported Ipratropium [place] (Ipratropium [place] (Nasal)) 0.03 % Spr 2 Sprays NA BID 06/18/17 Reported Coumadin (Warfarin Sodium) 3 Mg Tab 3 Mg PO 3XWK 06/18/17 Reported TAKE 3 MG DAILY ON FRI/FRI/FRI Folvite (Folic Acid) 1 Mg Tab 1 Mg PO DAILY 02/03/17 Reported Ferrous Sulfate 325 Mg Tab 325 Mg PO BID 02/03/17 Reported Ventolin Hfa (Albuterol) 200 Puffs/62914 Mcg Aers 2 Puffs INH QID PRN 08/08/16 Reported Alprazolam 0.5 Mg Tab 0.5 Mg PO TID PRN 08/08/16 Reported Warfarin Sodium 2 Mg Tab 2 Mg PO 4XWK 08/08/16 Reported TAKE 2 MG daily ON //FRI/FRI Effexor Extended Rel (Venlafaxine Hcl) 150 Mg Capcr 150 Mg PO QAM 08/08/16 Reported Montelukast Sodium (Montelukast Sod) 10 Mg Tab 10 Mg PO HS 08/08/16 Reported Topamax (Topiramate) 25 Mg Tab 25 Mg PO AMPM 04/17/16 Reported Breo Ellipta (Fluticasone Furoate-Vilanterol) 1 Inh Inh 1 Puff INH DAILY 04/17/16 Reported Levothyroxine Sodium 88 Mcg Tab 88 Mcg PO QAM 06/18/15 Reported Allergies to Medications: Celebrex, cephalexin, dexamethasone, furosemide, gabapentin, meclizine, methylprednisone, penicillin, pre-gabapentin, sulfa and vancomycin. Social History: Patient is currently employed; she lives with her and feels safe in her home environment; she denies current tobacco use and alcohol use. Physical Examination: Vital Signs: Date Time Temp Pulse Resp B/P (MAP) Pulse Ox O2 Delivery O2 Flow Rate FiO2 10/14/17 13:05 98 Room Air 10/14/17 12:11 81 20 122/65 98 Room Air 10/14/17 10:53 70 20 116/55 97 Room Air 81 129/67 90 125/65 10/14/17 10:06 79 10/14/17 09:23 36.3 100 18 123/69 94 Room Air GENERAL: 77-year-old female in mild distress due to symptoms, chronically ill- appearing, afebrile and hemodynamically stable. NEUROLOGICAL: Awake, alert and oriented to person, place and time. Answering questions appropriately and following commands. Normal gait. Good hand eye coordination. No focal motor or sensory deficits. SKIN: Warm, dry and pink. No soft tissue eruptions or trauma noted. HEENT: Atraumatic and normocephalic. PERRLA. Sclera white and conjunctiva pink. No drainage from naris. Oral cavity moist and pink. Pharynx is nonerythematous or edematous. Speech normal. No lymphadenopathy. Trachea midline. No jugular venous distention. No carotid bruits. BACK: No tenderness over the bony spine. No CVA tenderness. PMI was not displaced. No lifts, heaves or thrills. THORAX: Lungs sounds are clear to auscultation and equal bilaterally with symmetrical chest wall. No wheezing, rales or rhonchi. No crepitus, tenderness , subcutaneous air or deformities noted. HEART: Irregular rate and rhythm. No gallops, rubs or murmurs are appreciated. ABDOMEN: Flat, soft and nontender. Positive bowel sounds in all quadrants. No guarding, rigidity or organomegaly. EXTREMITIES: Moves all extremities well on command and with purpose. All distal neurovascular statuses are intact and equal bilaterally. No calf tenderness or cords. ED Course: Patient is assessed as noted above. Patient's medication list was reviewed. Laboratory Testing: Test 10/14/17 09:40 10/14/17 10:38 Range/Units White Blood Count 8.62 4.8-10.8 K/uL Red Blood Count 5.07 4.2-5.4 M/uL Hemoglobin 13.9 12.0-16.0 g/dL Hematocrit 42.0 37-47 % Mean Corpuscular Volume 82.8 80-100 fL Mean Corpuscular Hemoglobin 27.4 25-34 pg Mean Corpuscular Hemoglobin Concent 33.1 32-36 g/dl Platelet Count 250 130-400 K/uL Mean Platelet Volume 10.6 7.4-10.4 fL Neutrophils (%) (Auto) 64.6 % Lymphocytes (%) (Auto) 19.7 % Monocytes (%) (Auto) 10.9 % Eosinophils (%) (Auto) 4.1 % Basophils (%) (Auto) 0.5 % Neutrophils # (Auto) 5.57 1.4-6.5 K/uL Lymphocytes # (Auto) 1.70 1.2-3.4 K/uL Monocytes # (Auto) 0.94 0.11-0.59 K/uL Eosinophils # (Auto) 0.35 0-0.5 K/uL Basophils # (Auto) 0.04 0-0.2 K/uL RDW Standard Deviation 44.3 36.4-46.3 fL RDW Coefficient of Variation 14.7 11.5-14.5 % Immature Granulocyte % (Auto) 0.2 % Immature Granulocyte # (Auto) 0.02 0.00-0.02 K/uL Prothrombin Time 27.8 9.0-12.0 SECONDS Prothromb Time International Ratio 2.7 0.9-1.1 Activated Partial Thromboplast Time 43.0 21.0-31.0 SECONDS Partial Thromboplastin Ratio 1.7 Sodium Level 135 136-145 mmol/L Potassium Level 4.3 3.5-5.1 mmol/L Chloride Level 106 98-107 mmol/L Carbon Dioxide Level 21 21-32 mmol/L Anion Gap 8.0 3-11 mmol/L Blood Urea Nitrogen 45 7-18 mg/dl Creatinine 1.78 0.60-1.20 mg/dl Est Creatinine Clear Calc Drug Dose 29.3 ml/min Estimated GFR () 31.3 Estimated GFR (Non- 27.0 BUN/Creatinine Ratio 25.4 10-20 Random Glucose 106 70-99 mg/dl Calcium Level 9.6 8.5-10.1 mg/dl Magnesium Level 2.4 1.8-2.4 mg/dl Total Bilirubin 0.4 0.2-1 mg/dl Direct Bilirubin < 0.1 0-0.2 mg/dl Aspartate Amino Transf (AST/SGOT) 28 15-37 U/L Alanine Aminotransferase (ALT/SGPT) 23 12-78 U/L Alkaline Phosphatase 138 45-117 U/L Total Protein 7.7 6.4-8.2 gm/dl Albumin 3.8 3.4-5.0 gm/dl Lipase 132 73-393 U/L Bedside Troponin I < 0.030 0-0.045 ng/ml EKG: Was read by myself and reviewed with Dr. Kulkarni; shows atrial flutter with a varying rate. Ventricular rate [address] changes but no sign of acute ischemia or injury. Chest X-Rays: Were read by myself and the radiologist showing no acute infiltrates, effusions or pneumothorax. Compared to previous and no acute changes were noted. Patient was reassessed multiple times during her stay in the emergency department. Patient's case was reviewed with Dr. Kulkarni; we agreed on diagnostic approach, treatment, disposition and plan. Patient's case was reviewed with Dr. Chavarria, [facility] cardiology; independently assessed the patient and felt that an observation/admission stay was warranted. Patient's case was consulted with Ms. Beth PA-C, hospitalist for medical observation/admission. Patient was educated about today's findings. Clinical Impression: Atrial flutter/fibrillation. Decision-Making: Initially my differential diagnosis I consider arrhythmia, acute coronary syndrome, pneumonia, pulmonary edema, electrolyte abnormality, and other causes. Disposition and Plan: Patient to be brought in the hospital by the [facility] hospitalist for observation/admission. Please see their notes and orders for final disposition and plan.
--- NOTE | 2017-10-14 18:04 | DIAGNOSTIC IMAGING REPORT ---
CT SCAN OF THE BRAIN WITHOUT IV CONTRAST CLINICAL HISTORY: Dizziness. COMPARISON STUDY: CT of the brain dated 08/08/2016. TECHNIQUE: Unenhanced axial CT scan of the brain is performed from the vertex to the skull base. A dose lowering technique was utilized adhering to the principles of ALARA. CT DOSE: 537.48 mGy.cm FINDINGS: Brain parenchyma: There are age-related involutional changes noting mild subcortical and periventricular microangiopathic change. There is no hemorrhage, mass effect, or evidence of acute territorial ischemia by CT criteria. Rosario-white matter is preserved. No extra-axial fluid collection is seen. Ventricles, sulci, cisterns: Prominent secondary to involutional change. Intracranial vasculature: There is atherosclerotic calcification of the cavernous carotid arteries. Calvarium: Unremarkable. Sinuses and mastoids: There is a small air-fluid level in left maxillary antrum. The remaining Visualized paranasal sinuses are clear. The mastoid air cells are well pneumatized. Orbits: The bony orbits are grossly intact. There are bilateral ocular lens implants. IMPRESSION: There is no hemorrhage, mass effect, or evidence of acute territorial ischemia by CT criteria. Electronically signed by: Jay Sandoval M.D. 10/14/2017 6:03 PM Dictated Date/Time: 10/14/2017 6:01 PM
[2017-10-14 20:00] VITALS: O2SAT 100
[2017-10-14 20:21] VITALS: BP 122/74; PULSE 81; TEMP 36.4; O2SAT 97
[2017-10-14] MEDS: TOPIRAMATE 25 MG TAB PO SCH (20:55)
[2017-10-14] MEDS: FERROUS SULFATE 325 MG TAB PO SCH (20:57)
[2017-10-14] MEDS ORDERED: METOPROLOL SUCC 25MG EXT REL TAB PO SCH (21:00)
[2017-10-14] MEDS ORDERED: NON-FORMULARY MEDICATION (Ipratropium Bromide (Nasal) (Ipratropium Bromide) 2 SPRAYS) SCH (21:00)
[2017-10-14] MEDS ORDERED: MONTELUKAST SOD 10 MG TAB PO SCH (21:00)
[2017-10-14 22:00] VITALS: BP_SYST 116; BP_SYST 122; BP_SYST 128; BP_DIAS 62; BP_DIAS 65; BP_DIAS 76; PULSE 84; PULSE 86; PULSE 95; TEMP 36.7; O2SAT 94
[2017-10-15] VITALS (7 sets, daily range): BP systolic 119–140; BP diastolic 55–88; PULSE 66–89; TEMP 36.4–37.1; O2SAT 92–100
[2017-10-15 02:39] LABS: HEMATOCRIT 38.9 % (37-47); HEMOGLOBIN 12.8 g/dL (12.0-16.0); MEAN CELL VOLUME 83.5 fL (80-100); MEAN CORPUSCULAR HEMOGLOBIN 27.5 pg (25-34); MEAN CORPUSCULAR HGB CONC 32.9 g/dl (32-36); MEAN PLATELET VOLUME 10.5 fL (7.4-10.4); PLATELET COUNT 205 K/uL (130-400); RED CELL DISTRIBUTION WIDTH CV 14.6 % (11.5-14.5); RED CELL DISTRIBUTION WIDTH SD 44.5 fL (36.4-46.3)
[2017-10-15 02:56] LABS: BLOOD UREA NITROGEN 40 mg/dl (7-18); CALCIUM 8.9 mg/dl (8.5-10.1); CARBON DIOXIDE 23 mmol/L (21-32); CREATININE 1.59 mg/dl (0.60-1.20); GLUCOSE 90 mg/dl (70-99); POTASSIUM 4.5 mmol/L (3.5-5.1); SODIUM 139 mmol/L (136-145)
[2017-10-15 03:07] LABS: CHOLESTEROL 182 mg/dl (0-200); LDL CHOLESTEROL CALCULATED 102 mg/dl
[2017-10-15] MEDS ORDERED: LEVOTHYROXINE 88 MCG TAB PO SCH (06:00)
[2017-10-15] MEDS ORDERED: FLUTICASONE FUROATE-VILANTEROL 30 PUFFS/INHALER INH INH SCH (09:00)
[2017-10-15] MEDS ORDERED: IPRATROPIUM BROMIDE NASAL SPRAY 0.03% 30 ML SCH (09:00)
[2017-10-15] MEDS ORDERED: PANTOprazole SOD 40 MG TAB PO SCH (09:00)
[2017-10-15] MEDS ORDERED: ASPIRIN 81 MG ECTAB PO SCH (09:00)
[2017-10-15] MEDS: TOPIRAMATE 25 MG TAB PO SCH (09:42)
[2017-10-15] MEDS: FERROUS SULFATE 325 MG TAB PO SCH (09:42)
[2017-10-15] MEDS ORDERED: DOBUTamine HCL 12.5 MG/ML 20 ML VIAL ONE (10:09)
[2017-10-15] MEDS ORDERED: METOPROLOL TARTRATE 1 MG/ML VIAL ONE ×2 (10:09→10:10)
[2017-10-15] MEDS ORDERED: ATROPINE SULFATE 0.1 MG/ML 5ML SYR ONE ×2 (10:09→10:10)
[2017-10-15] MEDS ORDERED: PERFLUTREN LIPID MICROSPHERE (DEFINITY) IV ONE (11:56)
--- NOTE | 2017-10-15 14:12 | ECHOCARDIOGRAM REPORT ---
*NOTICE TO RECEIVING [employer] This information is strictly Confidential and protected under [place] law. [place] law prohibits you from making any further disclosure of this information unless further disclosure is expressly permitted by the written consent of the person to whom it pertains or is authorized by law. A general authorization for the release of medical or other information is not sufficient for this purpose. Hospital accepts no responsibility if the information is made available to any other person, INCLUDING THE PATIENT. Interpretation Summary * Name: LORI MORALES Study Date: 10/15/2017 07:26 AM BP: 131/55 mmHg * Patient Location: .2E\S\E210\S\1 HR: 79 * : 1940 (M/d/yyyy) Gender: Female Height: 66 in * Age: 77 yrs Ethnicity: [place] Weight: 190 lb * Ordering Physician: Keke Bajwa * Referring Physician: Self, Referred * Performed By: Tahira Arora RDCS * * Reason For Study: A-fib * BSA: 2.0 m2 * -- Conclusions -- * The left ventricle is normal in size. * There is moderate concentric left ventricular hypertrophy. * Left ventricular systolic function is normal. * The left ventricular wall motion is normal. * Ejection Fraction = 60-65%. * The left atrium is moderately dilated. * There is moderate mitral regurgitation. * There is trace tricuspid regurgitation. Procedure Details * A complete two-dimensional transthoracic echocardiogram was performed (2D, M-mode, Doppler and color flow Doppler). Left Ventricle * The left ventricle is normal in size. * There is moderate concentric left ventricular hypertrophy. * Ejection Fraction = 60-65%. * Left ventricular systolic function is normal. * The left ventricular wall motion is normal. Right Ventricle * The right ventricle is normal in size and function. Atria * The left atrium is moderately dilated. * Right atrial size is normal. * No ASD detected; PFO is not assessed. * Lipomatous hypertrophy of the interatrial septum is noted. Mitral Valve * There is no mitral valve stenosis. * There is moderate mitral regurgitation. Tricuspid Valve * The tricuspid valve anatomy is normal. * There is no tricuspid stenosis. * There is trace tricuspid regurgitation. * Doppler findings do not suggest pulmonary hypertension. Aortic Valve * The aortic valve is trileaflet. * No hemodynamically significant valvular aortic stenosis. * No aortic regurgitation is present. Pulmonic Valve * The pulmonic valve is not well visualized. Great Vessels * The aortic root is normal size. Pericardium/Pleural * There is no pericardial effusion. Great Vessels * Normal inferior vena cava diameter and respiratory variation suggests normal central venous pressure. MMode 2D Measurements and Calculations IVSd 1.3 cm LVIDd 3.6 cm LVIDs 2.5 cm LVPWd 0.91 cm IVS/LVPW 1.4 FS 32.5 % EDV(Teich) 56.2 ml ESV(Teich) 21.5 ml EF(Teich) 61.7 % EDV(cubed) 48.6 ml ESV(cubed) 14.9 ml EF(cubed) 69.2 % LV mass(C)d 128.3 grams LV mass(C)dI 65.5 grams/m\S\2 SV(Teich) 34.7 ml SI(Teich) 17.7 ml/m\S\2 SV(cubed) 33.7 ml SI(cubed) 17.2 ml/m\S\2 Ao root diam 2.9 cm Ao root area 6.8 cm\S\2 ACS 2.0 cm LA dimension 3.4 cm asc Aorta Diam 3.5 cm LA/Ao 1.2 LVOT diam 2.0 cm LVOT area 3.1 cm\S\2 LVAd ap4 20.1 cm\S\2 LVLd ap4 6.7 cm EDV(MOD-sp4) 51.5 ml EDV(sp4-el) 51.7 ml LVAs ap4 11.4 cm\S\2 LVLs ap4 5.4 cm ESV(MOD-sp4) 21.9 ml ESV(sp4-el) 20.2 ml EF(MOD-sp4) 57.4 % EF(sp4-el) 61.0 % LVAd ap2 14.6 cm\S\2 LVLd ap2 5.8 cm EDV(MOD-sp2) 30.2 ml EDV(sp2-el) 31.4 ml LVAs ap2 8.8 cm\S\2 LVLs ap2 5.2 cm ESV(MOD-sp2) 13.1 ml ESV(sp2-el) 12.6 ml EF(MOD-sp2) 56.7 % EF(sp2-el) 60.0 % LVLd %diff -15.09 % EDV(MOD-bp) 42.0 ml LVLs %diff -3.99 % ESV(MOD-bp) 17.1 ml EF(MOD-bp) 59.2 % SV(MOD-sp4) 29.5 ml SI(MOD-sp4) 15.1 ml/m\S\2 SV(MOD-sp2) 17.1 ml SI(MOD-sp2) 8.8 ml/m\S\2 SV(MOD-bp) 24.9 ml SI(MOD-bp) 12.7 ml/m\S\2 SV(sp4-el) 31.5 ml SI(sp4-el) 16.1 ml/m\S\2 SV(sp2-el) 18.8 ml SI(sp2-el) 9.6 ml/m\S\2 Doppler Measurements and Calculations MV E max ruthann 95.1 cm/sec MV dec time 0.19 sec Ao V2 max 95.0 cm/sec Ao max PG 3.6 mmHg Ao max PG (full) 1.4 mmHg ALMAS(V,A) 2.4 cm\S\2 ALMAS(V,D) 2.4 cm\S\2 LV V1 max PG 2.2 mmHg LV V1 max 73.7 cm/sec PA V2 max 96.4 cm/sec PA max PG 3.7 mmHg PA acc slope 500.9 cm/sec\S\2 PA acc time 0.12 sec TR max ruthann 256.4 cm/sec PA pr(Accel) 26.7 mmHg
--- NOTE | 2017-10-15 14:16 | DOBUTAMINE ECHO ---
*NOTICE TO RECEIVING [employer] This information is strictly Confidential and protected under [place] law. [place] law prohibits you from making any further disclosure of this information unless further disclosure is expressly permitted by the written consent of the person to whom it pertains or is authorized by law. A general authorization for the release of medical or other information is not sufficient for this purpose. Hospital accepts no responsibility if the information is made available to any other person, INCLUDING THE PATIENT. Interpretation Summary * Name: LORI MORALES Study Date: 10/15/2017 10:27 AM BP: 153/75 mmHg * Patient Location: .2E\S\E210\S\1 HR: 69 * : 1940 (M/d/yyy) Gender: Female Height: 66 in * Age: 77 yrs Ethnicity: [place] Weight: 190 lb * Ordering Physician: Nish Chavarria * Referring Physician: Self, Referred * Performed By: Tahira Arora RDCS * * Reason For Study: Chest pain * BSA: 2.0 m2 * STRESS STUDY: Normal pharmacologic stress echocardiogram. No echocardiographic or ECG evidence of myocardial ischemia having achieved heart rate adequate for diagnostic purposes. * -- Conclusions -- * Atrial fibrillation/flutter with nonspecific ST changes are present at rest. * Stress ECG: No ST changes. No arrhythmias. Procedure Details * DOBUTAMINE ECHO, CPT#98396 * A contrast injection of Definity was performed to improve assessment of LV function. * Contrast was injected into an intravenous site in the right arm. * One vial of Definity ultrasound contrast was diluted in normal saline to a total volume of 10 ml. A total of '6' ml of solution was administered during imaging. * Lot # [id number] of Definity utilized for procedure. * Expiration date SEP 12. * The attending nurse who injected the contrast agent was Dorys Horvath RN. Left Ventricle * There is mild concentric left ventricular hypertrophy. * Ejection Fraction = 60-65%. * Resting wall motion: Normal. Stress wall motion: Appropriate increase in Left ventricular systolic function and decrease in cavity size. No stress induced segmental wall motion abnormalities. Stress Parameters * Atrial fibrillation/flutter with nonspecific ST changes are present at rest. * Stress ECG: No ST changes. No arrhythmias. * The stress portion of this study was personally supervised by the undersigned interpreting physician. * Rest heart rate was '69' BPM. * Rest blood pressure was '153/75' * Maximum heart rate achieved was 129 bpm. * Maximum heart rate was 90 % of maximum age-predicted heart rate. * Maximum blood pressure was '181/66' * Dobutamine infusion was terminated due to achieving target heart rate * A total of 7.50 mg of IV Metoprolol was administered to reverse Dobutamine-induced tachycardia. * Maximum Dobutamine infusion rate was '30' mcg/kg/min. * A total of 0 mg of intravenous Atropine was used to supplement Dobutamine for heart rate response. * The patient did not exhibit any symptoms during drug infusion.
--- NOTE | 2017-10-15 15:27 | CARDIOLOGY PROGRESS NOTE ---
DATE: 10/15/2017 CARDIOLOGY CONSULTATION FOLLOWUP NOTE The patient was seen and examined. Chart, medications, and telemetry were reviewed. SUBJECTIVE: The patient was seen after a stress testing and prior stress testing this morning. No complaints overnight. Telemetry revealed no arrhythmias other than baseline atrial fibrillation/flutter. The patient notes no chest pains. Notes no fevers, chills or productive cough. OBJECTIVE: VITAL SIGNS: Heart rate is 80. Blood pressure is 119/88. There is no overt orthostasis. HEENT: Normocephalic and atraumatic. NECK: Thin. There is no jugular venous distention. There are no carotid bruits. LUNGS: Clear to auscultation. CARDIOVASCULAR: Irregularly irregular. There is no S3 gallop. ABDOMEN: Soft and nontender. EXTREMITIES: Without cyanosis or clubbing. There is no peripheral edema. LABORATORY STUDIES: Sodium is 139, potassium is 4.5, chloride is 108, bicarbonate is 23, BUN is 40, and creatinine is 1.5. Cholesterol is 182. LDL is 102. TSH is 3.45. Echocardiogram demonstrates moderate left ventricular hypertrophy with normal left ventricular systolic function. No segment abnormalities, moderate left atrial dilatation and moderate mitral insufficiency. Stress echocardiography revealed no stress induced ischemia with adequate heart rate greater than 85% age predicted maximum heart rate. No symptoms were induced. IMPRESSION: Episodic complaints of diaphoresis, weakness without overt tachyarrhythmias or bradyarrhythmias observed. Ischemic heart disease excluded currently. RECOMMENDATIONS: Continue usual medications. I would recommend an event monitor to be placed. The patient was instructed to palpate pulse events and continue outpatient workup.
--- NOTE | 2017-10-15 15:31 | Discharge Summary ---
Discharge Summary Date of Service Oct 15, 2017. Discharge Summary Admission Date: Oct 14, 2017 at 13:43 Discharge Date: Oct 15, 2017 Discharge Disposition: Home Medication Reconciliation Continued Medications: Albuterol Hfa (Ventolin Hfa) 200 Puffs/31370 Mcg Aers 2 PUFFS INH QID PRN for SOB/Wheezing Alprazolam (Alprazolam) 0.5 Mg Tab 0.5 MG PO TID PRN for Anxiety Ferrous Sulfate (Ferrous Sulfate) 325 Mg Tab 325 MG PO BID Fluticasone Furoate-Vilanterol (Breo Ellipta) 1 Inh Inh 1 PUFF INH DAILY Folic Acid (Folvite) 1 Mg Tab 1 MG PO DAILY, TAB Ipratropium [place] (Nasal) (Ipratropium [place]) 0.03 % Spr 2 SPRAYS NA BID Lansoprazole (Cvs Lansoprazole) 15 Mg Cap 15 MG PO QAM Levothyroxine Sodium (Levothyroxine Sodium) 88 Mcg Tab 88 MCG PO QAM, TAB Metoprolol Succinate (Metoprolol Succinate ER) 25 Mg Tabcr 25 MG PO HS Montelukast Sod (Montelukast Sodium) 10 Mg Tab 10 MG PO HS Topiramate (Topamax ) 25 Mg Tab 25 MG PO AMPM Venlafaxine Hcl (Effexor Extended Rel) 150 Mg Capcr 150 MG PO QAM Warfarin Sodium (Warfarin Sodium) 2 Mg Tab 2 MG PO 4XWK TAKE 2 MG daily ON //SAT/SUN Warfarin Sodium (Coumadin) 3 Mg Tab 3 MG PO 3XWK TAKE 3 MG DAILY ON FRI/FRI/FRI Admission Information HPI (per Admitting provider): this is a 77 yo F with hx of chronic afib /flutter failed out pt cardioversion . Type 2 DM . CKD stage 3 . Lumber spinal stenosis , Cervical spinal stenosis, Meniere's disease, Hypothyroidism presented to ER after having intermittent episodes of pre syncope /dizzy spell while at work Pt works at the [employer] the past [employer]-4 days she noted having dizzy spell . leading her to be very lightheaded, diaphoretic . felt warm and flushed feeling like she is going to pass out Pt usually takes break with this episodes sits on bench , it takes at least 30 mins for her to feel better yesterday she has two episodes at work , took longer time for her to recover , felt very weak and fatigued , went home and slept rest of the evening her family physician was notified of the symptom , was asked to come to ER pt refuse to come to ER yesterday this morning she got another call from [facility] recommending her to have ER visit in ER , pt did not had any symptoms , EKG shows Aflutter with controlled rate of 88 bpm INR therapeutic ~2 Physical Exam (per Admitting): General Appearance: no apparent distress Head: normocephalic, atraumatic Eyes: normal inspection, PERRL, EOMI, sclerae normal ENT: normal ENT inspection Neck: thyroid normal, no JVD, no carotid bruits, trachea midline Respiratory/Chest: chest non-tender, lungs clear, normal breath sounds Cardiovascular: no edema, normal peripheral pulses, + irregularly irregular Abdomen/GI: normal bowel sounds, non tender, soft Extremities/Musculoskelatal: normal inspection, no calf tenderness, normal capillary refill, no pedal edema Neurologic/Psych: no motor/sensory deficits, alert, normal mood/affect, oriented x 3 Hospital Course Total time spent on discharge = 60 minutes This includes examination of the patient, discharge planning, medication reconciliation, and communication with other providers. [place] [address] Discharge Medical Patient Name: Inga Barakat Unit Number: [id number] Date of : 1940 Patient Status: Admitted Inpatient Attending Doctor: Violetta Dhillon DO DI: Medical v4 Discharge Instructions Date of Service Oct 15, 2017. Admission Reason for Admission: AFIB Discharge Discharge Diagnosis / Problem: presyncope Discharge Goals Goal(s): Decrease discomfort, Prevent Disease Progression Activity Recommendations Activity Limitations: per Instructions/Follow-up section . Instructions / Follow-Up Instructions / Follow-Up Please take all medications as instructed. Please continue outpatient workup with Dr. Calvo regarding ongoing symptoms, including possible re-evaluation of your sleep apnea as a cause of daytime fatigue. We discussed upper airway surgical options briefly which may warrant further review with Dr. Calvo or an Legal Administrative Secretary (ENT physician). Dr. Chavarria has requested for you to be on an outpatient event monitor called a Zio patch. Please touch base with [facility] regarding getting set up with this in the next week or two. It is recommended that you follow-up with Dr. Calvo within one week of discharge for follow-up from this hospitalization. As Dr. Calvo was not available, you were scheduled with Dr. Aishwarya Pierre on Sep 26 @9:05 at the [facility] location. Please follow-up with the coumadin clinic within 1-2 weeks to ensure good levels. It was a pleasure taking care of you! Call if you have any questions or problems. You can reach a [facility] hospitalist on duty at [facility] 24 hours a day by calling [phone]. Take care of yourself. Violetta Dhillon DO [facility] Hospitalist Current Hospital Diet Patient's current hospital diet: AHA Diet (Heart Healthy) Discharge Diet Recommended Diet: AHA Diet (Heart Healthy) Procedures Procedures Performed: Stress test Pending Studies Studies pending at discharge: no Laboratory Results Lipid Panel Test 10/15/17 02:30 Range/Units Triglycerides Level 100 0-150 mg/dl Cholesterol Level 182 0-200 mg/dl HDL Cholesterol 60 mg/dl Cholesterol/HDL Ratio 3.0 LDL Cholesterol, Calculated 102 mg/dl Medical Emergencies . Who to Call and When: Medical Emergencies: If at any time you feel your situation is an emergency, please call 911 immediately. . Non-Emergent Contact Non-Emergency issues call your: Primary Care Provider . . "Provider Documentation" section prepared by Violetta Dhillon. . VTE Core Measure Inpt VTE Proph given/why not?: Warfarin (Coumadin) Additional Copies To Aishwarya PIERRE M.D.; Florentin Calvo D.O.
[2017-10-15] MEDS ORDERED: WARFARIN SOD 3 MG TAB PO SCH (16:00)
== END 2017-10-15 18:11 | disposition home or self-care (01) | DRG 309 ==
LOC: C.EDB 09:18 → C.2E 13:43 → ENRESERV 14:12
PROVIDERS: ADMIT Hospitalist; ATTEND Hospitalist
DX: I48.1 Persistent atrial fibrillation (principal); N17.9 Acute kidney failure, unspecified; I48.92 Unspecified atrial flutter; I12.9 Hypertensive chronic kidney disease with stage 1 through stage 4 chronic kidney disease, or unspecified chronic kidney disease; E11.21 Type 2 diabetes mellitus with diabetic nephropathy; N18.3 Chronic kidney disease, stage 3 (moderate); M48.061 Spinal stenosis, lumbar region without neurogenic claudication; J45.909 Unspecified asthma, uncomplicated; F32.9 Major depressive disorder, single episode, unspecified; Z88.2 Allergy status to sulfonamides; Z88.8 Allergy status to other drugs, medicaments and biological substances; H81.09 Meniere's disease, unspecified ear

== ENCOUNTER → 2017-10-29 | Outpatient (CLI) | payer MEDICARE ==
[~2017-10-29] MED LIST changes: -CRD200 PO; +LANS15CA45 PO; -LANS30CA63 PO
--- NOTE | 2017-10-29 09:58 | DIAGNOSTIC IMAGING REPORT ---
PET/CT SKULL-THIGH HISTORY: Lung nodule R UPPER LOBE LUNG MASS TECHNIQUE: PET/CT was performed from the base of the skull through the pelvis following the intravenous administration of 14.4 mCi of F18-FDG. Non-contrast CT imaging was performed over the same range without breath-hold for attenuation correction of PET images and anatomic correlation, but not for primary interpretation as it is not of standard diagnostic quality. CT DOSE: COMPARISON: 02/14/2016 FINDINGS: HEAD AND NECK: There is no FDG-avid disease or significant lymphadenopathy in the imaged portions of the head and the neck. CHEST: There is no FDG-avid disease in the chest. There is no axillary, mediastinal, or hilar lymphadenopathy. There is no pleural or pericardial effusion. There is no air-space disease or suspicious lung nodule. Lungs are clear. ABDOMEN/PELVIS: Below the diaphragm, tracer is distributed physiologically in the gastrointestinal and genitourinary tracts. There is no significant lymphadenopathy and no FDG-avid disease. Increased activity overlying the cecum representing unremarkable bowel content. Bilateral renal cysts considered stable. MUSCULOSKELETAL: There is no FDG-avid or destructive bone lesion. Scattered degenerative activity of the shoulders and spine. IMPRESSION: There is no definite evidence of recurrent FDG-avid disease. Negative PET scan. No change from the prior study. No significant pulmonary nodularity. The above report was generated using voice recognition software. It may contain grammatical, syntax or spelling errors. Electronically signed by: Doe Cyr M.D. 10/29/2017 9:56 AM Dictated Date/Time: 10/29/2017 9:44 AM
== END | disposition home or self-care (01) ==
LOC: C.PET 07:06
PROVIDERS: ATTEND Internal Medicine
DX: R91.1 Solitary pulmonary nodule (principal)

== ENCOUNTER 2018-01-14 08:52 | Emergency (ER) | payer MEDICARE ==
[~2018-01-14] VITALS: Ht 167.6 cm; Wt 82.0 kg
[2018-01-14 09:03] VITALS: TEMP 36.6; Ht 167.6 cm; Wt 82.0 kg
--- NOTE | 2018-01-14 09:34 | EMERGENCY ROOM VISIT NOTE ---
History Report prepared by Violet: Kwame Cabrera Under the Supervision of: Dr. Aleida Denny M.D. First contact with patient: 09:03 Chief Complaint: CARDIAC ASSESSMENT Stated Complaint: SYNCOPE Nursing Triage Summary: pt here with a syncopal event while working at [employer]. pt states developed sudden sharp pain in left side of chest, did not feel well, then passed out. pt has a history of a fib/aflutter. upon ems arrival pt was in aflutter. at this time pt is awake alert and oriented. denies any chest pains. pt states is having some pain in left ankle. History of Present Illness The patient is a 77 year old female who presents to the Emergency Room with complaints of chest pain and a falling episode that began this morning. The patient states that she first experienced pain in the left side of her chest as well as a discomfort in her neck/throat. She adds that she did "not feel right, " but was having trouble describing the quality of her symptoms. These sensations have now improved. The patient then dropped to the ground. The episode was witnessed by the patient's who denies that she ever actually lost consciousness. She denies hitting her head as well. The patient has a history of intermittent atrial flutter, but has never been able to feel her flutter. She is on Coumadin for the flutter. Source of History: patient Onset: This morning Position: chest (left) Timing: other (improved) Associated Symptoms: + neck pain (/throat), No LOC Review of Systems See HPI for pertinent positives & negatives. A total of 10 systems reviewed and were otherwise negative. Past Medical & Surgical Medical Problems: (1) Afib (2) ARF (acute renal failure) (3) Asthma, moderate persistent (4) Atrial fibrillation and flutter (5) CKD (chronic kidney disease), stage III (6) Depression (7) Diet-controlled diabetes mellitus (8) HTN (hypertension) (9) Hypothyroidism (10) Meniere disease (11) RADHA (obstructive sleep apnea) (12) Palpitations Surgical Problems: (1) H/O sinus surgery (2) History of laminectomy (3) History of repair of left rotator cuff (4) Hx of neck surgery Family History Diabetes mellitus Social History Smoking Status: Never Smoker Alcohol Use: none Drug Use: none Marital Status: Housing Status: lives with significant other Occupation Status: employed Current/Historical Medications Scheduled Amiodarone Hcl (Cordarone), 200 MG PO DAILY Ferrous Sulfate (Ferrous Sulfate), 325 MG PO BID Fluticasone Furoate-Vilanterol (Breo Ellipta), 1 PUFF INH DAILY Folic Acid (Folvite), 1 MG PO DAILY Ipratropium [place] (Nasal) (Ipratropium [place]), 2 SPRAYS NA BID Levothyroxine Sodium (Levothyroxine Sodium), 88 MCG PO QAM Metoprolol Succinate (Metoprolol Succinate ER), 25 MG PO HS Montelukast Sod (Montelukast Sodium), 10 MG PO HS Topiramate (Topamax ), 25 MG PO AMPM Venlafaxine Hcl (Effexor Extended Rel), 150 MG PO QAM Warfarin Sodium (Warfarin Sodium), 2 MG PO 4XWK Warfarin Sodium (Coumadin), 3 MG PO 3XWK Scheduled PRN Albuterol Hfa (Ventolin Hfa), 2 PUFFS INH QID PRN for SOB/Wheezing Alprazolam (Alprazolam), 0.5 MG PO TID PRN for Anxiety Loratadine (Claritin), 10 MG PO DAILY PRN for Seasonal Allergies Allergies Coded Allergies: Sulfa Antibiotics (Verified Allergy, Severe, Severe rxn: rash and hives, ) Celecoxib (Verified Allergy, Intermediate, Rash/Hives/Itching., 01/14/18) Cephalexin (Verified Allergy, Intermediate, Rash/Hives/Itching., 01/14/18) Furosemide (Verified Allergy, Intermediate, Rash/Hives/Itching., 01/14/18) Gabapentin (Verified Allergy, Intermediate, Rash/Hives/Itching., 01/14/18) Pregabalin (Verified Allergy, Intermediate, Rash/Hives/Itching., 01/14/18) Meclizine (Verified Allergy, Unknown, Unknown, 01/14/18) Methylprednisolone (Verified Allergy, Unknown, Rash/Hives/Itching., ) Penicillins (Verified Allergy, Unknown, Unknown., 01/14/18) Prednisone (Verified Allergy, Unknown, Rash/Hives/Itching., 01/14/18) Vancomycin (Verified Allergy, Unknown, Jodi syn. ., 01/14/18) Dexamethasone (Verified Adverse Reaction, Intermediate, Steroid psychosis. , 01/14/18) Physical Exam Vital Signs Date Time Temp Pulse Resp B/P (MAP) Pulse Ox O2 Delivery O2 Flow Rate FiO2 01/14/18 14:15 74 16 141/88 99 01/14/18 13:00 71 18 127/72 96 Room Air 01/14/18 12:43 98 01/14/18 11:42 01/14/18 11:42 81 16 124/68 96 Room Air 83 140/65 90 123/74 01/14/18 10:43 69 16 131/79 95 Room Air 01/14/18 09:22 87 01/14/18 09:03 36.6 77 16 122/64 93 Room Air Physical Exam Vital signs reviewed. General: Well-appearing elderly female, in no significant distress. HEENT: No scleral icterus, PERRLA, neck supple. Atraumatic. Cardiovascular: irregular rhythm, rate controlled, no extra sounds. Pulmonary: Clear to auscultation bilaterally, normal work of breathing. Abdomen: Soft, nontender, nondistended, positive bowel sounds. Musculoskeletal: Atraumatic, no peripheral edema. Nontender to palpation of the cervical spine. Neurologic: Patient awake alert and oriented x 3, full strength in all 4 extremities. Cranial nerves 2 through 12 grossly intact. Skin: Warm, dry, no rash Medical Decision & Procedures ER Provider Diagnostic Interpretation: Radiology results as stated below per my review and radiologist interpretation: CT OF THE HEAD WITHOUT CONTRAST CLINICAL HISTORY: near syncope, fall COMPARISON STUDY: Head CT October 14, 2017. CT DOSE: 537.48 mGy.cm TECHNIQUE: Helical axial images of the head were obtained without IV contrast. Automated exposure control was utilized for the study. A dose lowering technique was utilized adhering to the principles of ALARA. FINDINGS: No acute intracranial hemorrhage, midline shift or mass effect is present. Ventricular system is normal. Basilar cisterns are patent. There are no extra axial collections. White matter hypodensities suggest mild small vessel disease. There may be a single locule of gas within the left forehead. There is no calvarial fracture. There are postoperative findings within the sinuses with sinus wall mucosal thickening and mild mucosal thickening. IMPRESSION: 1. No acute intracranial findings. 2. No calvarial fracture. Electronically signed by: Otoniel Lmeus M.D. 01/14/2018 1:35 PM Dictated Date/Time: 01/14/2018 1:32 PM L ANKLE MIN 3 VIEWS ROUTINE CLINICAL HISTORY: L ankl e pain after fall COMPARISON STUDY: None. FINDINGS: Soft tissue swelling within the left ankle. There are few punctate ossific densities adjacent to the lateral malleolus and lateral aspect of the calcaneus. These are consistent with age indeterminate avulsion fractures. Otherwise, the distal fibula and tibia are intact. No dislocation. Small posterior calcaneal spur. IMPRESSION: There are few punctate ossific densities adjacent to the lateral malleolus and lateral aspect of the calcaneus consistent with small age indeterminate avulsion fractures. Electronically signed by: Jean-Claude Anderson M.D. 01/14/2018 10:26 AM Dictated Date/Time: 01/14/2018 10:23 AM CHEST ONE VIEW PORTABLE CLINICAL HISTORY: Syncope. Fall. COMPARISON STUDY: Chest radiograph October 14, 2017. FINDINGS: Lung volumes are normal. No pneumothorax or pleural effusion is noted. No evidence for pulmonary edema. No consolidation is present. Mild cardiomegaly is unchanged. Postoperative findings within the cervical spine are incidentally noted. Appearance of the chest is unchanged. IMPRESSION: No acute cardiopulmonary findings. Electronically signed by: Otoniel Lemus M.D. 01/14/2018 10:20 AM Dictated Date/Time: 01/14/2018 10:19 AM Laboratory Results 01/14/18 09:59 Red Blood Count 4.82, Mean Corpuscular Volume 83.4, Mean Corpuscular Hemoglobin 27.8, Mean Corpuscular Hemoglobin Concent 33.3, Mean Platelet Volume 9.8, Neutrophils (%) (Auto) 72.6, Lymphocytes (%) (Auto) 9.2, Monocytes (%) (Auto) 7.3, Eosinophils (%) (Auto) 10.4, Basophils (%) (Auto) 0.2, Neutrophils # (Auto ) 8.31, Lymphocytes # (Auto) 1.05, Monocytes # (Auto) 0.83, Eosinophils # (Auto ) 1.19, Basophils # (Auto) 0.02 01/14/18 09:59 Test 01/14/18 09:59 White Blood Count 11.44 K/uL (4.8-10.8) Red Blood Count 4.82 M/uL (4.2-5.4) Hemoglobin 13.4 g/dL (12.0-16.0) Hematocrit 40.2 % (37-47) Mean Corpuscular Volume 83.4 fL (80-100) Mean Corpuscular Hemoglobin 27.8 pg (25-34) Mean Corpuscular Hemoglobin Concent 33.3 g/dl (32-36) Platelet Count 219 K/uL (130-400) Mean Platelet Volume 9.8 fL (7.4-10.4) Neutrophils (%) (Auto) 72.6 % Lymphocytes (%) (Auto) 9.2 % Monocytes (%) (Auto) 7.3 % Eosinophils (%) (Auto) 10.4 % Basophils (%) (Auto) 0.2 % Neutrophils # (Auto) 8.31 K/uL (1.4-6.5) Lymphocytes # (Auto) 1.05 K/uL (1.2-3.4) Monocytes # (Auto) 0.83 K/uL (0.11-0.59) Eosinophils # (Auto) 1.19 K/uL (0-0.5) Basophils # (Auto) 0.02 K/uL (0-0.2) RDW Standard Deviation 45.0 fL (36.4-46.3) RDW Coefficient of Variation 14.6 % (11.5-14.5) Immature Granulocyte % (Auto) 0.3 % Immature Granulocyte # (Auto) 0.04 K/uL (0.00-0.02) Prothrombin Time 21.8 SECONDS (9.0-12.0) Prothromb Time International Ratio 2.1 (0.9-1.1) Activated Partial Thromboplast Time 40.6 SECONDS (21.0-31.0) Partial Thromboplastin Ratio 1.6 Anion Gap 7.0 mmol/L (3-11) Est Creatinine Clear Calc Drug Dose 34.1 ml/min Estimated GFR () 38.9 Estimated GFR (Non- 33.5 BUN/Creatinine Ratio 24.3 (10-20) Calcium Level 8.8 mg/dl (8.5-10.1) Magnesium Level 2.0 mg/dl (1.8-2.4) Total Bilirubin 0.2 mg/dl (0.2-1) Direct Bilirubin < 0.1 mg/dl (0-0.2) Aspartate Amino Transf (AST/SGOT) 16 U/L (15-37) Alanine Aminotransferase (ALT/SGPT) 19 U/L (12-78) Alkaline Phosphatase 164 U/L (45-117) Troponin I < 0.015 ng/ml (0-0.045) Total Protein 7.4 gm/dl (6.4-8.2) Albumin 3.6 gm/dl (3.4-5.0) Thyroid Stimulating Hormone (TSH) 4.400 uIu/ml (0.300-4.500) Laboratory results per my review. Medications Administered Medications (Trade) Dose Ordered Sig/Felipe Route Start Time Stop Time Status Last Admin Dose Admin Sodium Chloride 500 ml @ 999 mls/hr Q31M STAT IV 01/14/18 13:05 01/14/18 13:35 DC 01/14/18 13:08 999 MLS/HR ECG Per My Interpretation Indication: chest pain, syncope Rate (beats per minute): 83 Rhythm: atrial flutter Findings: 1st degree AV block, other (No GURINDER/STD, No PVCs) ED Course 0913: Past medical records reviewed. The patient was evaluated in room B11B. A complete history and physical examination was performed. 1305: Ordered Sodium Chloride 500 ml @ 999 mls/hr IV 1313: I updated the patient at this time. She will get a CT scan. 1401: Upon reevaluation, the patient appeared to have improvement of her symptoms. I discussed findings with her. She verbalized agreement of the treatment plan. The patient was discharged home. Medical Decision Differential diagnosis: Etiologies such as vasovagal event, infection, hypoglycemia, electrolyte abnormalities, cardiac sources, intracerebral event, toxicologic, neurologic, as well as others were entertained. This patient was evaluated and appeared to be in no significant distress. Physical examination is fairly unrevealing. Patient's laboratory work is reassuring, troponin is normal. EKG reveals no evidence of acute ischemia, she is in a rate controlled atrial flutter which is chronic. Patient had fairly normal orthostatic vital signs, there is a slight drop in blood pressure when standing. She was hydrated with normal saline solution. Urinalysis is clear. CT scan of the head is negative for acute pathology. X-ray of the left ankle indicates old injury that was likely aggravated today. There is no evidence of acute fracture and no significant swelling on exam. Patient was given a gel splint to be used when ambulatory. She will ice and elevate as needed. Patient may have suffered an episode of atrial flutter with RVR or vasovagal episode. Patient will follow up with her PCP this week for reevaluation and return to the ED for worsening of symptoms or any medical concerns. Medication Reconcilliation Current Medication List: was personally reviewed by me Blood Pressure Screening Patient's blood pressure: Normal blood pressure Impression Primary Impression: Near syncope Additional Impressions: Left ankle sprain Atrial fibrillation and flutter Scribe Attestation The scribe's documentation has been prepared under my direction and personally reviewed by me in its entirety. I confirm that the note above accurately reflects all work, treatment, procedures, and medical decision making performed by me. Departure Information Dispostion Home / Self-Care Referrals Florentin Calvo D.O. (PCP) Forms IMPORTANT VISIT INFORMATION Patient Instructions My [facility] Additional Instructions Diagnosis: Near syncope, left ankle sprain Please drink plenty of clear fluids. Eat balanced snacks/meals every 3-4 hours. Continue medications as prescribed. Wear the gel splint on the left ankle while on your feet. Follow-up with your PCP regarding the near syncopal event and left ankle pain. Return to the emergency department for worsening of symptoms or any medical concerns. Problem Qualifiers
[2018-01-14 10:06] LABS: BASO % 0.2 %; BASO ABS # 0.02 K/uL (0-0.2); EOS % 10.4 %; EOS ABS # 1.19 K/uL (0-0.5); HEMATOCRIT 40.2 % (37-47); HEMOGLOBIN 13.4 g/dL (12.0-16.0); IG# 0.04 K/uL (0.00-0.02); LYMPH % 9.2 %; LYMPH ABS # 1.05 K/uL (1.2-3.4); MEAN CELL VOLUME 83.4 fL (80-100); MEAN CORPUSCULAR HEMOGLOBIN 27.8 pg (25-34); MEAN CORPUSCULAR HGB CONC 33.3 g/dl (32-36); MEAN PLATELET VOLUME 9.8 fL (7.4-10.4); MONO % 7.3 %; MONO ABS # 0.83 K/uL (0.11-0.59); NEUT % 72.6 %; NEUT ABS # 8.31 K/uL (1.4-6.5); PLATELET COUNT 219 K/uL (130-400); RED CELL DISTRIBUTION WIDTH CV 14.6 % (11.5-14.5); WHITE BLOOD COUNT 11.44 K/uL (4.8-10.8)
[2018-01-14 10:17] LABS: INR 2.1 (0.9-1.1); PTT PATIENT 40.6 SECONDS (21.0-31.0)
--- NOTE | 2018-01-14 10:22 | DIAGNOSTIC IMAGING REPORT ---
CHEST ONE VIEW PORTABLE CLINICAL HISTORY: Syncope. Fall. COMPARISON STUDY: Chest radiograph October 14, 2017. FINDINGS: Lung volumes are normal. No pneumothorax or pleural effusion is noted. No evidence for pulmonary edema. No consolidation is present. Mild cardiomegaly is unchanged. Postoperative findings within the cervical spine are incidentally noted. Appearance of the chest is unchanged. IMPRESSION: No acute cardiopulmonary findings. Electronically signed by: Otoniel Lemus M.D. 01/14/2018 10:20 AM Dictated Date/Time: 01/14/2018 10:19 AM
--- NOTE | 2018-01-14 10:27 | DIAGNOSTIC IMAGING REPORT ---
L ANKLE MIN 3 VIEWS ROUTINE CLINICAL HISTORY: Parisa ontiveros pain after fall COMPARISON STUDY: None. FINDINGS: Soft tissue swelling within the left ankle. There are few punctate ossific densities adjacent to the lateral malleolus and lateral aspect of the calcaneus. These are consistent with age indeterminate avulsion fractures. Otherwise, the distal fibula and tibia are intact. No dislocation. Small posterior calcaneal spur. IMPRESSION: There are few punctate ossific densities adjacent to the lateral malleolus and lateral aspect of the calcaneus consistent with small age indeterminate avulsion fractures. Electronically signed by: Jean-Claude Anderson M.D. 01/14/2018 10:26 AM Dictated Date/Time: 01/14/2018 10:23 AM
[2018-01-14 10:36] LABS: ALBUMIN 3.6 gm/dl (3.4-5.0); ALKALINE PHOSPHATASE 164 U/L (45-117); ALT/SGPT 19 U/L (12-78); AST/SGOT 16 U/L (15-37); BLOOD UREA NITROGEN 36 mg/dl (7-18); CALCIUM 8.8 mg/dl (8.5-10.1); CARBON DIOXIDE 24 mmol/L (21-32); CREATININE 1.49 mg/dl (0.60-1.20); GLUCOSE 111 mg/dl (70-99); POTASSIUM 4.2 mmol/L (3.5-5.1); SODIUM 137 mmol/L (136-145); TOTAL PROTEIN 7.4 gm/dl (6.4-8.2)
[2018-01-14] MEDS ORDERED: CLR10 PO (11:37)
[2018-01-14] MEDS ORDERED: AMIO200T4 PO (11:37)
[2018-01-14] MEDS ORDERED: SODIUM CHLORIDE 0.9% 500ML 500 ML IV STA (13:05)
--- NOTE | 2018-01-14 13:36 | DIAGNOSTIC IMAGING REPORT ---
CT OF THE HEAD WITHOUT CONTRAST CLINICAL HISTORY: near syncope, fall COMPARISON STUDY: Head CT October 14, 2017. CT DOSE: 537.48 mGy.cm TECHNIQUE: Helical axial images of the head were obtained without IV contrast. Automated exposure control was utilized for the study. A dose lowering technique was utilized adhering to the principles of ALARA. FINDINGS: No acute intracranial hemorrhage, midline shift or mass effect is present. Ventricular system is normal. Basilar cisterns are patent. There are no extra axial collections. White matter hypodensities suggest mild small vessel disease. There may be a single locule of gas within the left forehead. There is no calvarial fracture. There are postoperative findings within the sinuses with sinus wall mucosal thickening and mild mucosal thickening. IMPRESSION: 1. No acute intracranial findings. 2. No calvarial fracture. Electronically signed by: Otoniel Lemus M.D. 01/14/2018 1:35 PM Dictated Date/Time: 01/14/2018 1:32 PM
[2018-01-14 14:15] VITALS: BP 141/88; PULSE 74; O2SAT 99
== END 2018-01-14 14:15 | disposition home or self-care (01) ==
LOC: EDBD 08:52 → C.EDB 08:52
DX: R55 Syncope and collapse (principal); S93.402A Sprain of unspecified ligament of left ankle, initial encounter; W19.XXXA Unspecified fall, initial encounter; I48.91 Unspecified atrial fibrillation; I48.92 Unspecified atrial flutter; Z79.01 Long term (current) use of anticoagulants; J45.40 Moderate persistent asthma, uncomplicated; E03.9 Hypothyroidism, unspecified; I12.9 Hypertensive chronic kidney disease with stage 1 through stage 4 chronic kidney disease, or unspecified chronic kidney disease; N18.3 Chronic kidney disease, stage 3 (moderate); F32.9 Major depressive disorder, single episode, unspecified; Z88.2 Allergy status to sulfonamides; Z88.6 Allergy status to analgesic agent; Z88.1 Allergy status to other antibiotic agents; Z88.8 Allergy status to other drugs, medicaments and biological substances; Z88.0 Allergy status to penicillin

== ENCOUNTER 2020-06-03 13:22 | Observation (INO) ==
--- NOTE | 2020-06-03 13:25 | Emergency Department Note ---
Impression & Plan Atypical chest pain, Transaminitis ED Provider Note NAME: LORI MORALES AGE: 79 SEX: F : 1940 ARRIVES VIA: Ambulance INFORMANT: Patient, ED PROVIDER(S): Leandro Aceves MD Chief Complaint: Chest pain HPI: Does present with associated chest pain. The patient states that this began the last evening. The patient does not complain of any specific exertional symptoms the patient has not been doing much exertionally. Patient does have a history of A. fib does take Coumadin. The patient does describe the pain is viselike across the whole chest. Nonradiating. The patient did have some mild nausea and associated shortness of breath but without infectious symptoms of cough, fevers, chills. The patient does not use tobacco. No prior history of [place]. Patient does have a prior history of asthma. Patient did receive aspirin and nitro in route to the patient did have improvement in her symptoms. The patient states initially was 5 out of 10 currently 2 out of 10. Patient denies any recent travel procedures or history of DVT or PE. ROS: See HPI for pertinent positives and negatives. A total of 10 systems were reviewed and otherwise negative. Past medical history: See below Surgical history: See below Social history: See below Physical Exam: GENERAL: Wearing glasses and a mask. NAD, non-toxic. EYE EXAM: Normal conjunctiva. PERRL, no anisocoria and EOM's grossly intact w/o pain. NECK: Supple, no nuchal rigidity, no adenopathy, non-tender. No signs of meningismus. LUNGS: Clear to auscultation. Normal chest wall mechanics. HEART: Irregularly irregular, no MRG. ABDOMEN: Abdomen soft, non-tender, normo-active bowel sounds, no masses, no rebound or guarding. BACK: No CVA TTP. SKIN: No rashes and no bruising. UPPER EXTREMITIES: Upper extremities are grossly normal. LOWER EXTREMITIES: Grossly normal, no edema. Negative Homans sign bilaterally. NEURO EXAM: A&O x3, cranial nerves II-XII grossly intact, normal speech, moves all 4 extremities on command w/o issue. Differential diagnoses: Cardiac ischemia, aortic dissection, pulmonary embolism, pneumothorax, pneumonia, pericarditis, myocarditis, esophageal rupture, GERD, cholecystitis, pancreatitis, musculoskeletal, as well as other pathologies. Course: Patient was seen and evaluated the bedside. Full history physical exam was performed. EKG: Indication: Chest pain A. fib, rate of 80, normal QRS and axis, T wave inversion in lead III and anteriorly in V2 V3 V4 and V5. [facility] EKG from January 14, 2018 patient did have atrial flutter at that time patient may have new T wave inversions in the anterior and lateral leads. Imaging Studies: Radiology results as stated below per my review in the radiologist's interpre tation: XR chest 1V portable CLINICAL HISTORY: Chest Pain COMPARISON STUDY: Chest CT March 12, 2019. FINDINGS: Lung volumes are normal. Lungs are clear. There is no pneumothorax or pleural effusion. Mild cardiomegaly is unchanged. Mediastinal contours are normal. There is no evidence for pulmonary edema. Incidental note is made of postoperative findings within the cervical spine. IMPRESSION: No acute cardiopulmonary findings. No change in appearance of the chest. ACT 112: Negative or not required by law. Electronically signed by: Otoniel Lemus M.D. 06/03/2020 2:01 PM Dictated: 06/03/20 1400 Transcribed: 06/03/20 1400 Cardiac monitoring: An order was placed for continuous cardiac monitoring. The monitor shows a rate of 80 with irregularly irregular rhythm. MDM: Patient was seen due to concern for chest pain. Patient already did receive aspirin and nitro which did improve her discomfort. Patient does have a known history of chronic lung disease A. fib obstructive sleep apnea. Patient states that she did take her morning medications. Blood work was obtained along with an EKG troponin chest x-ray. Patient may have new T wave changes compared to prior from 2018. Patient does have white count of 11 with a normal H&H and platelet count. The patient's kidney function is virtually unchanged. Slightly subtherapeutic with an INR 1.7. Troponin is not detectable. The patient does have mild elevation in AST and alk phos but not an ALT. Total bili is not elevated the patient does not have any abdominal pain. Patient was ordered a sublingual nitro. The patient does not appear to be in extremis. Patient's history and physical exam likely not consistent with aneurysm or dissection. Vital signs stable not hypoxic no signs of infectious or volume overload symptoms. I did speak with the patient and update her on the findings as well as her family member Bright at the bedside. Speak with Dr. Garett MD. Patient was admitted to the [facility] service. Past Med/Surg History Medical History Asthma, moderate persistent Atrial fibrillation and flutter CKD (chronic kidney disease), stage III Depression Diet-controlled diabetes mellitus HTN (hypertension) Hypothyroidism Meniere disease RADHA (obstructive sleep apnea) Pulmonary emphysema Surgical History H/O sinus surgery History of laminectomy History of repair of left rotator cuff Hx of neck surgery Family History Other No significant family history Social History Smoking Status: Former smoker Tobacco Type: Cigarettes packs per day: 1.5; Feels Safe at Home: Yes Allergies Allergies Allergy/AdvReac Type Severity Reaction Status Date / Time Sulfa (Sulfonamide Allergy Severe Severe Verified 06/03/20 14:52 Antibiotics) rxn: rash and hives celecoxib Allergy Intermediate Rash/Hives/ Verified 06/03/20 14:52 Itching. cephalexin Allergy Intermediate Rash/Hives/ Verified 06/03/20 14:52 Itching. furosemide Allergy Intermediate Rash/Hives/ Verified 06/03/20 14:52 Itching. gabapentin Allergy Intermediate Rash/Hives/ Verified 06/03/20 14:52 Itching. pregabalin Allergy Intermediate Rash/Hives/ Verified 06/03/20 14:52 Itching. meclizine Allergy Unknown Unknown Verified 06/03/20 14:52 methylprednisolone Allergy Unknown Rash/Hives/ Verified 06/03/20 14:52 Itching. Penicillins Allergy Unknown Unknown. Verified 06/03/20 14:52 prednisone Allergy Unknown Rash/Hives/ Verified 06/03/20 14:52 Itching. vancomycin Allergy Unknown Jodi Verified 06/03/20 14:52 syn. . dexamethasone AdvReac Intermediate Steroid Verified 06/03/20 14:52 psychosis. Home Meds Home Medications Medication Instructions Recorded Confirmed alprazolam 0.5 mg tablet 0.5 mg PO QID PRN tab 04/08/19 06/03/20 folic acid 1 mg tablet 1 mg PO DAILY tab 04/08/19 06/03/20 lansoprazole 15 mg capsule,delayed 15 mg PO DAILY cap 04/08/19 06/03/20 release montelukast 10 mg tablet 10 mg PO DAILY tab 04/08/19 06/03/20 topiramate 25 mg tablet 25 mg PO BID tab 04/08/19 06/03/20 venlafaxine 150 mg 150 mg PO DAILY #30 cap 04/08/19 06/03/20 capsule,extended release 24 hr warfarin 2 mg tablet 2 mg PO 6XWK tab 04/08/19 06/03/20 levothyroxine 125 mcg capsule 125 mcg PO DAILY 05/19/19 06/03/20 digoxin 125 mcg PO 3XWK 06/03/20 06/03/20 ferrous sulfate 325 mg PO DAILY 06/03/20 06/03/20 ipratropium bromide 2 spray INTRANASAL DAILY PRN 06/03/20 06/03/20 metoprolol succinate 50 mg PO DAILY 06/03/20 06/03/20 warfarin 3 mg PO WK 06/03/20 06/03/20 Previous Rx's Medication Instructions Recorded fluticasone fur. 100 mcg-umeclid 1 puffs INH DAILY #60 ea 04/19/19 62.5 mcg-vilant 25 mcg inhalat.powder CPAP Machine #1 ea 08/23/19 miscellaneous medical supply #1 ea 10/26/19 CPAP Machine #1 ea 04/06/20 Results & Data (ED) Vital Signs Vital Signs - 24 hr 06/03/20 13:24 06/03/20 13:27 06/03/20 13:28 Temperature Temperature Source Pulse Rate 79 86 Pulse Rate [Apical] 82 Pulse Rate from SpO2 Sensor 81 83 Pulse Rhythm Pulse Rhythm [Apical] Irregular Pulse Strength [Apical] Normal Respiratory Rate 28 H 16 17 Respiratory Effort / Characteristics Non-Labored Respiratory Depth Normal Respiratory Pattern Regular Blood Pressure 137/69 Blood Pressure [Right Arm] 137/69 Blood Pressure Mean 83 Blood Pressure Mean [Right Arm] 91 Blood Pressure Position Blood Pressure Position [Right Arm] Sitting Pulse Oximetry 94 96 95 Oxygen Delivery Method Room Air Sepsis Recent Fever Within 48 Hours Sepsis New/Unexplained Change in Mental Status Sepsis Action Taken by Nursing 06/03/20 13:30 06/03/20 13:40 06/03/20 13:48 Temperature 36.5 C Temperature Source Oral Pulse Rate 78 76 83 Pulse Rate [Apical] Pulse Rate from SpO2 Sensor 79 80 Pulse Rhythm Regular Irregular Pulse Rhythm [Apical] Pulse Strength [Apical] Respiratory Rate 20 19 18 Respiratory Effort / Characteristics Non-Labored Respiratory Depth Normal Respiratory Pattern Regular Blood Pressure 137/69 Blood Pressure [Right Arm] Blood Pressure Mean 91 Blood Pressure Mean [Right Arm] Blood Pressure Position Sitting Blood Pressure Position [Right Arm] Pulse Oximetry 97 96 97 Oxygen Delivery Method Room Air Room Air Sepsis Recent Fever Within 48 Hours No Sepsis New/Unexplained Change in Mental Status N/A Sepsis Action Taken by Nursing No Action Required 06/03/20 13:50 06/03/20 14:00 06/03/20 14:10 Temperature Temperature Source Pulse Rate 84 81 79 Pulse Rate [Apical] Pulse Rate from SpO2 Sensor 84 Pulse Rhythm Pulse Rhythm [Apical] Pulse Strength [Apical] Respiratory Rate 16 25 H 19 Respiratory Effort / Characteristics Respiratory Depth Respiratory Pattern Blood Pressure Blood Pressure [Right Arm] Blood Pressure Mean Blood Pressure Mean [Right Arm] Blood Pressure Position Blood Pressure Position [Right Arm] Pulse Oximetry 97 Oxygen Delivery Method Sepsis Recent Fever Within 48 Hours Sepsis New/Unexplained Change in Mental Status Sepsis Action Taken by Nursing 06/03/20 14:11 06/03/20 14:20 06/03/20 14:30 Temperature Temperature Source Pulse Rate 83 82 82 Pulse Rate [Apical] Pulse Rate from SpO2 Sensor 83 Pulse Rhythm Pulse Rhythm [Apical] Pulse Strength [Apical] Respiratory Rate 16 18 29 H Respiratory Effort / Characteristics Respiratory Depth Respiratory Pattern Blood Pressure 117/68 127/69 Blood Pressure [Right Arm] Blood Pressure Mean 76 94 Blood Pressure Mean [Right Arm] Blood Pressure Position Blood Pressure Position [Right Arm] Pulse Oximetry 97 Oxygen Delivery Method Sepsis Recent Fever Within 48 Hours Sepsis New/Unexplained Change in Mental Status Sepsis Action Taken by Nursing 06/03/20 14:31 06/03/20 15:00 Temperature Temperature Source Pulse Rate 80 84 Pulse Rate [Apical] Pulse Rate from SpO2 Sensor 83 Pulse Rhythm Pulse Rhythm [Apical] Pulse Strength [Apical] Respiratory Rate 17 21 Respiratory Effort / Characteristics Respiratory Depth Respiratory Pattern Blood Pressure 114/75 Blood Pressure [Right Arm] Blood Pressure Mean 77 Blood Pressure Mean [Right Arm] Blood Pressure Position Blood Pressure Position [Right Arm] Pulse Oximetry 97 Oxygen Delivery Method Sepsis Recent Fever Within 48 Hours Sepsis New/Unexplained Change in Mental Status Sepsis Action Taken by Correction Medications Current Medication List: was personally reviewed by nm Laboratory Data Attestation: I reviewed the patient's lab results. Result diagrams: 06/03/20 14:06 06/03/20 14:06 Lab Results 06/03/20 06/03/20 06/03/20 Range/Units 13:33 13:33 13:33 WBC Cancelled RBC Cancelled Hgb Cancelled Hct Cancelled MCV Cancelled MCH Cancelled MCHC Cancelled RDW Std Deviation Cancelled RDW Coeff of Francisco Javier Cancelled Plt Count Cancelled MPV Cancelled Immature Gran % (Auto) Cancelled Neut % (Auto) Cancelled Lymph % (Auto) Cancelled Coleman % (Auto) Cancelled Eos % (Auto) Cancelled Baso % (Auto) Cancelled Neut # (Auto) Cancelled Lymph # (Auto) Cancelled Coleman # (Auto) Cancelled Eos # (Auto) Cancelled Baso # (Auto) Cancelled Immature Gran # (Auto) Cancelled Absolute Nucleated RBC Cancelled Nucleated RBC % (auto) Cancelled Neutrophils % (Manual) Cancelled Band Neutrophils % Cancelled Lymphocytes % (Manual) Cancelled Prolymphocyte % Cancelled Reactive Lymphs % (Man) Cancelled Monocytes % (Manual) Cancelled Eosinophils % (Manual) Cancelled Basophils % (Manual) Cancelled Metamyelocytes % (Man) Cancelled Myelocytes % (Man) Cancelled Promyelocytes % (Man) Cancelled Blast Cells % (Manual) Cancelled Plasma Cell % (Manual) Cancelled Other Cells % Cancelled Nucleated RBC % Cancelled Neutrophils # (Manual) Cancelled Band Neutrophils # Cancelled Total Absolute Neuts Cancelled Lymphocytes # (Manual) Cancelled Prolymphocyte # Cancelled Reactive Lymphs # Cancelled Total Abs Lymphocytes Cancelled Monocytes # (Manual) Cancelled Eosinophils # (Manual) Cancelled Basophils # (Manual) Cancelled Metamyelocytes # (Man) Cancelled Myelocytes # (Manual) Cancelled Promyelocytes # (Man) Cancelled Blast Cells # (Man) Cancelled Plasma Cell # (Manual) Cancelled Other Cells # Cancelled Nucleated RBCs # (Man) Cancelled Hypersegmented Neuts Cancelled Hyposegmented Neuts Cancelled Hypogranular Neuts Cancelled Large Granular Lymphs Cancelled # Lrg Granular Lymphs Cancelled Hairy Cells Cancelled Smudge Cells Cancelled Toxic Granulation Cancelled Toxic Vacuolation Cancelled Dohle Bodies Cancelled Hanna Rods Cancelled Platelet Estimate Cancelled Hypogranular Platelets Cancelled Clumped Platelets Cancelled Giant Platelets Cancelled Platelet Satelliting Cancelled RBC Morphology Cancelled Polychromasia Cancelled Hypochromasia Cancelled Poikilocytosis Cancelled Basophilic Stippling Cancelled Anisocytosis Cancelled Microcytosis Cancelled Macrocytosis Cancelled Spherocytes Cancelled Pappenheimer Bodies Cancelled Sickle Cells Cancelled Target Cells Cancelled Tear Drop Cells Cancelled Ovalocytes Cancelled Stomatocytes Cancelled [place] Bodies Cancelled Echinocytes Cancelled Acanthocytes (Spur) Cancelled Rouleaux Cancelled RBC Agglutinates Cancelled Schistocytes Cancelled RBC Morph Comment Cancelled Sezary Cell Cancelled PT Cancelled INR Cancelled APTT Cancelled PTT Ratio Cancelled Sodium Cancelled Potassium Cancelled Chloride Cancelled Carbon Dioxide Cancelled Anion Gap Cancelled BUN Cancelled Creatinine Cancelled Est Cr Clr Drug Dosing Cancelled Est GFR ( Amer) Cancelled Est GFR (Non-Af Amer) Cancelled BUN/Creatinine Ratio Cancelled Glucose Cancelled Calcium Cancelled Magnesium Cancelled Total Bilirubin Cancelled Direct Bilirubin (0-0.2) mg/dl AST Cancelled ALT Cancelled Alkaline Phosphatase Cancelled Troponin I Cancelled Total Protein Cancelled Albumin Cancelled Globulin Cancelled Albumin/Globulin Ratio Cancelled Lipase Cancelled 06/03/20 06/03/20 06/03/20 Range/Units 14:06 14:06 14:06 WBC 11.88 H RBC 4.46 Hgb 13.2 Hct 40.2 MCV 90.1 MCH 29.6 MCHC 32.8 RDW Std Deviation 50.5 H RDW Coeff of Francisco Javier 15.4 H Plt Count 220 MPV 10.2 Immature Gran % (Auto) 0.4 Neut % (Auto) 77.5 Lymph % (Auto) 10.4 Coleman % (Auto) 7.2 Eos % (Auto) 4.2 Baso % (Auto) 0.3 Neut # (Auto) 9.21 H Lymph # (Auto) 1.23 Coleman # (Auto) 0.86 H Eos # (Auto) 0.50 Baso # (Auto) 0.03 Immature Gran # (Auto) 0.05 H Absolute Nucleated RBC Nucleated RBC % (auto) Neutrophils % (Manual) Band Neutrophils % Lymphocytes % (Manual) Prolymphocyte % Reactive Lymphs % (Man) Monocytes % (Manual) Eosinophils % (Manual) Basophils % (Manual) Metamyelocytes % (Man) Myelocytes % (Man) Promyelocytes % (Man) Blast Cells % (Manual) Plasma Cell % (Manual) Other Cells % Nucleated RBC % Neutrophils # (Manual) Band Neutrophils # Total Absolute Neuts Lymphocytes # (Manual) Prolymphocyte # Reactive Lymphs # Total Abs Lymphocytes Monocytes # (Manual) Eosinophils # (Manual) Basophils # (Manual) Metamyelocytes # (Man) Myelocytes # (Manual) Promyelocytes # (Man) Blast Cells # (Man) Plasma Cell # (Manual) Other Cells # Nucleated RBCs # (Man) Hypersegmented Neuts Hyposegmented Neuts Hypogranular Neuts Large Granular Lymphs # Lrg Granular Lymphs Hairy Cells Smudge Cells Toxic Granulation Toxic Vacuolation Dohle Bodies Hanna Rods Platelet Estimate Hypogranular Platelets Clumped Platelets Giant Platelets Platelet Satelliting RBC Morphology Polychromasia Hypochromasia Poikilocytosis Basophilic Stippling Anisocytosis Microcytosis Macrocytosis Spherocytes Pappenheimer Bodies Sickle Cells Target Cells Tear Drop Cells Ovalocytes Stomatocytes [place] Bodies Echinocytes Acanthocytes (Spur) Rouleaux RBC Agglutinates Schistocytes RBC Morph Comment Sezary Cell PT 17.8 H INR 1.7 H APTT 35.8 H PTT Ratio 1.3 Sodium 141 Potassium 4.2 Chloride 111 H Carbon Dioxide 26 Anion Gap 4.0 BUN 25 H Creatinine 1.33 H Est Cr Clr Drug Dosing 34.8 Est GFR ( Amer) 44.0 Est GFR (Non-Af Amer) 37.9 BUN/Creatinine Ratio 19.0 Glucose 116 H Calcium 9.3 Magnesium 2.2 Total Bilirubin 0.5 Direct Bilirubin 0.3 H (0-0.2) mg/dl AST 135 H ALT 63 Alkaline Phosphatase 172 H Troponin I Total Protein 7.0 Albumin 3.3 L Globulin 3.7 Albumin/Globulin Ratio 0.9 Lipase Administered Medications Discontinued Medications Nitroglycerin (Nitroglycerin Sl 0.4 Mg/Tab Tab) 0.4 mg SL NOW STA Stop: 06/03/20 15:00 Last Admin: 06/03/20 15:07 Dose: 0.4 mg Documented by: [id number] Discharge Plan Visit Data Chief Complaint: Cardiac Assessment Stated Complaint: cp/sob ED Provider: Leandro Aceves Discharge Problem: Atypical chest pain, Transaminitis Forms Stand Alone Forms: My [facility] Prescriptions Prescriptions: No Action Trelegy Ellipta 100-62.5-25 mcg blister with device 1 puffs INH DAILY Qty: 60 RF: 3 (DME) CPAP Machine Misc See Rx Instructions .ROUTE .MEDSUPPLY Qty: 1 RF: 0 (DME) CPAP Machine Misc See Rx Instructions .MEDSUPPLY Qty: 1 RF: 0 lansoprazole 15 mg capsule,delayed release(DR/EC) 15 mg PO DAILY RF: 0 warfarin 2 mg tablet 2 mg PO 6XWK RF: 0 topiramate 25 mg tablet 25 mg PO BID RF: 0 montelukast 10 mg tablet 10 mg PO DAILY RF: 0 folic acid 1 mg tablet 1 mg PO DAILY RF: 0 alprazolam 0.5 mg tablet 0.5 mg PO QID PRN (Reason: Anxiety) RF: 0 venlafaxine 150 mg capsule,extended release 24hr 150 mg PO DAILY Qty: 30 RF: 0 (DME) CPAP Supplies Misc See Rx Instructions .ROUTE .MEDSUPPLY Qty: 1 RF: 0 levothyroxine 125 mcg capsule 125 mcg PO DAILY RF: 0 metoprolol succinate 50 mg tablet extended release 24 hr 50 mg PO DAILY RF: 0 ferrous sulfate 325 mg (65 mg iron) Tablet 325 mg PO DAILY RF: 0 warfarin 2 mg tablet 3 mg PO WK RF: 0 digoxin 125 mcg (0.125 mg) tablet 125 mcg PO 3XWK RF: 0 ipratropium bromide 0.03 % spray,non-aerosol 2 spray INTRANASAL DAILY PRN (Reason: Sinus Symptoms) RF: 0
--- NOTE | 2020-06-03 14:02 | XRay Report ---
XR chest 1V portable CLINICAL HISTORY: Chest Pain COMPARISON STUDY: Chest CT March 12, 2019. FINDINGS: Lung volumes are normal. Lungs are clear. There is no pneumothorax or pleural effusion. Mil d cardiomegaly is unchanged. Mediastinal contours are normal. There is no evidence for pulmonary pernell a. Incidental note is made of postoperative findings within the cervical spine. IMPRESSION: No acute cardiopulmonary findings. No change in appearance of the chest. ACT 112: Negative or not required by law. Electronically signed by: Otoniel Lemus M.D. 06/03/2020 2:01 PM
--- NOTE | 2020-06-03 14:04 | Electrocardiogram Report ---
Test Reason : Blood Pressure : / mmHG Vent. Rate : 080 BPM Atrial Rate : 064 BPM P-R Int : 000 ms QRS Dur : 076 ms QT Int : 318 ms P-R-T Axes : 000 015 270 degrees QTc Int : 366 ms Atrial fibrillation Nonspecific ST and T wave abnormality Abnormal ECG When compared with ECG of 14-JAN-2018 08:56, Atrial fibrillation has replaced Atrial flutter Non-specific change in ST segment in Inferior leads Nonspecific T wave abnormality, worse in Lateral leads Confirmed by Carlos Karimi ([id number]) on 06/03/2020 2:03:55 PM Referred By: ED Confirmed By:Carlos Karimi
[2020-06-03 14:15] LABS: Hematocrit (blood only) 40.2 % (37-47); Hemoglobin 13.2 g/dL (12.0-16.0); Mean Corpuscular Hemoglobin 29.6 pg (25-34); Mean Corpuscular Volume 90.1 fL (80-100); Red Blood Count 4.46 M/uL (4.2-5.4); White Blood Count 11.88 K/uL (4.8-10.8)
[2020-06-03 14:16] LABS: Basophils # (auto) 0.03 K/uL (0-0.2); Basophils % (auto) 0.3 %; Eosinophils % (auto) 4.2 %; Immature Granulocytes # (auto) 0.05 K/uL (0.00-0.02); Immature Granulocytes % (auto) 0.4 %; Lymphocytes # (auto) 1.23 K/uL (1.2-3.4); Lymphocytes % (auto) 10.4 %; Mean Corpuscular Hgb Conc 32.8 g/dL (32-36); Mean Platelet Volume 10.2 fL (7.4-10.4); Monocytes # (auto) 0.86 K/uL (0.11-0.59); Monocytes % (auto) 7.2 %; Neutrophils # (auto) 9.21 K/uL (1.4-6.5); Neutrophils % (auto) 77.5 %; Platelet Count 220 K/uL (130-400); RDW Coefficient of Variation 15.4 % (11.5-14.5); RDW Standard Deviation 50.5 fL (36.4-46.3)
[2020-06-03 14:31] LABS: INR 1.7 (0.9-1.1); Partial Thromboplastin Ratio 1.3; Partial Thromboplastin Time 35.8 Seconds (21.0-31.0); Prothrombin Time 17.8 Seconds (9.0-12.0)
[2020-06-03 14:37] LABS: Albumin Level 3.3 gm/dl (3.4-5.0); Bilirubin Direct 0.3 mg/dl (0-0.2); Calcium 9.3 mg/dl (8.5-10.1); Creatinine Clr Calc Pharmacy 34.8 ml/min; Est GFR (Non-African American) 37.9; Magnesium 2.2 mg/dl (1.8-2.4); Potassium 4.2 mmol/L (3.5-5.1)
[2020-06-03 14:40] LABS: Albumin Globulin Ratio 0.9 (0.9-2); Bilirubin,Total 0.5 mg/dl (0.2-1); Globulin 3.7 gm/dl (2.5-4.0)
[2020-06-03] MEDS ORDERED: NITROGLYCERIN SL 0.4 MG/TAB TAB SL PRN ×2 (14:59→15:30)
[2020-06-03] MEDS ORDERED: NITROGLYCERIN SL 0.4 MG/TAB TAB SL STA (14:59)
[2020-06-03] MEDS ORDERED: POLYETHYLENE (MIRALAX) 17 GM PACK PO PRN (15:30)
[2020-06-03] MEDS ORDERED: ONDANSETRON INJ 2 MG/ML 2 ML VIAL IV PRN (15:30)
[2020-06-03] MEDS ORDERED: MAGNESIUM HYDROXIDE SUSP 30 ML UDC PO PRN (15:30)
[2020-06-03] MEDS ORDERED: ALUMINUM/MAGNESIUM SUSP 30 ML UDC PO PRN (15:30)
--- NOTE | 2020-06-03 15:43 | History & Physical Report ---
Date of Service June 03, 2020 Assessment & Plan (1) Chest pain at rest: Presented with substernal chest heaviness/chest discomfort for over 12 hours, Symptom occurred at rest, improved after sublingual nitro EKG shows chronic A. fib, rate controlled, initial troponin negative Patient is continue with aspirin, beta-caridad, IV heparin bridge for INR less than 1.7, continue Coumadin Ordered for resting echo, Cardiology consult Continue to monitor in telemetry (2) CKD (chronic kidney disease), stage III: cr mildly elevated from baseline ( acute renal failure on CKD stage 3 ) IV fluids follow BMP Elevated d-dimer/right lower extremity pain: INR subtherapeutic 1.7, ordered for IV heparin bridge with Coumadin Lower extremity Doppler ordered, We will avoid CT chest with contrast given acute renal failure on CKD stage III, Patient will be continued with active anticoagulation, CTA chest will not change any management Follow-up echo report for evidence of any right heart strain (3) Atrial fibrillation and flutter: chronic afib , rate controlled cont Digoxin , Metorolol on coumadin , INR subtheraputic 1.7 , iv heparin bridge till INR 2 resting ECHO as part of cardiac work up hx of diet controlled type 2 DM : check Hb A1c RADHA : intolerant of CPAP Abnormal TSH: TSH level elevated more than 14, with normal free T4 Possible sick euthyroid syndrome? We will continue with current dose of levothyroxine 125 mcg daily Repeat TSH level in next 2 to 3 weeks when acute illness has resolved Full code DVT prophylaxis : coumadin , Iv heparin bridge DISPOSITION : discharge to home when medically stable Clinic follow up with Dr Calvo at [facility] Follows with [facility] cardiology Dr. Hewitt in [facility] cardiology clinic History of Present Illness Chief Complaint: Chest pain Primary Care Provider: Florentin Calvo, DO This is-A 79 year -old female past medical history of chronic A. fib, COPD, CKD stage III, hypertension, obstructive sleep apnea intolerant of CPAP Came to the ER with complaint of substernal chest pain started since yesterday afternoon. Patient was sitting when she started to experience chest tightness, worse with taking deep breath. No improvement with taking rest Throughout the night patient continued to feel chest discomfort, shortness of breath, had episode of sweating, In the morning, her symptoms continued to get worse, having shortness of breath, worsening of chest tightness with minimal activity. No cough, no fever or chills She denies of any feeling of palpitation, felt dizzy and lightheaded, EMS was called In route to the hospital, patient was given sublingual nitro, aspirin, which helped improvement of symptom In my time of interview, patient was symptom-free Patient reports of having pain on her right leg/feels like a sharp knot -day before yesterday, pain lasted for 1 day does not have any weakness or paresthesia INR 1.7, follows with Coumadin clinic at [place] She reports taking Coumadin as directed Details: BP 1 one 75, pulse 84, chronic A. fib, patient is 97% saturation in room air Allergies Allergy/AdvReac Type Severity Reaction Status Date / Time Sulfa (Sulfonamide Allergy Severe Severe Verified 06/03/20 14:52 Antibiotics) rxn: rash and hives celecoxib Allergy Intermediate Rash/Hives/ Verified 06/03/20 14:52 Itching. cephalexin Allergy Intermediate Rash/Hives/ Verified 06/03/20 14:52 Itching. furosemide Allergy Intermediate Rash/Hives/ Verified 06/03/20 14:52 Itching. gabapentin Allergy Intermediate Rash/Hives/ Verified 06/03/20 14:52 Itching. pregabalin Allergy Intermediate Rash/Hives/ Verified 06/03/20 14:52 Itching. meclizine Allergy Unknown Unknown Verified 06/03/20 14:52 methylprednisolone Allergy Unknown Rash/Hives/ Verified 06/03/20 14:52 Itching. Penicillins Allergy Unknown Unknown. Verified 06/03/20 14:52 prednisone Allergy Unknown Rash/Hives/ Verified 06/03/20 14:52 Itching. vancomycin Allergy Unknown Jodi Verified 06/03/20 14:52 syn. . dexamethasone AdvReac Intermediate Steroid Verified 06/03/20 14:52 psychosis. Home Medications Home Medications Medication Instructions Recorded Confirmed Type alprazolam 0.5 mg tablet 0.5 mg PO QID PRN tab 04/08/19 06/03/20 History folic acid 1 mg tablet 1 mg PO DAILY tab 04/08/19 06/03/20 History lansoprazole 15 mg capsule,delayed 15 mg PO DAILY cap 04/08/19 06/03/20 History release montelukast 10 mg tablet 10 mg PO DAILY tab 04/08/19 06/03/20 History topiramate 25 mg tablet 25 mg PO BID tab 04/08/19 06/03/20 History venlafaxine 150 mg 150 mg PO DAILY #30 cap 04/08/19 06/03/20 History capsule,extended release 24 hr warfarin 2 mg tablet 2 mg PO 6XWK tab 04/08/19 06/03/20 History fluticasone fur. 100 mcg-umeclid 1 puffs INH DAILY #60 ea 04/19/19 06/03/20 Rx 62.5 mcg-vilant 25 mcg inhalat.powder levothyroxine 125 mcg capsule 125 mcg PO DAILY 05/19/19 06/03/20 History CPAP Machine #1 ea 08/23/19 02/01/20 Rx miscellaneous medical supply #1 ea 10/26/19 02/01/20 Rx CPAP Machine #1 ea 04/06/20 Rx digoxin 125 mcg PO 3XWK 06/03/20 06/03/20 History ferrous sulfate 325 mg PO DAILY 06/03/20 06/03/20 History ipratropium bromide 2 spray INTRANASAL DAILY PRN 06/03/20 06/03/20 History metoprolol succinate 50 mg PO DAILY 06/03/20 06/03/20 History warfarin 3 mg PO WK 06/03/20 06/03/20 History Past Med/Surg History Medical History Asthma, moderate persistent Atrial fibrillation and flutter CKD (chronic kidney disease), stage III Depression Diet-controlled diabetes mellitus HTN (hypertension) Hypothyroidism Meniere disease RADHA (obstructive sleep apnea) Pulmonary emphysema Surgical History H/O sinus surgery History of laminectomy History of repair of left rotator cuff Hx of neck surgery Family History Other No significant family history Social History Smoking Status: Former smoker Tobacco Type: Cigarettes packs per day: 1.5; Feels Safe at Home: Yes Review of Systems Review of Systems: All systems reviewed & are unremarkable except as noted in HPI & below Physical Exam Constitutional: WD/WN, vitals as above Eyes: PERRL, conjunctivae normal, anicteric sclerae ENMT: external ear and nose normal, oropharynx normal Neck: trachea midline, no thyromegaly Respiratory: normal respiratory effort, lungs clear to auscultation Cardiovascular: RRR, no murmur, no edema Gastrointestinal (Abdomen): normal bowel sounds, soft, nontender, no hepatosplenomegaly Musculoskeletal: no cyanosis or clubbing, extremities motor strength 5/5 Skin: no rashes, warm and dry Neurologic: PERRL, EOMI, accommodation nl, no face palsy, no dysarthria Psychiatric: A+Ox3, euthymic affect Results & Data Results & Data ([facility]) Vital Signs (Past 12 Hours) Vital Signs Temp Pulse Pulse Resp BP BP Pulse Ox 06/03/20 15:00 84 21 114/75 97 06/03/20 14:31 80 17 06/03/20 14:30 82 29 H 127/69 06/03/20 14:20 82 18 06/03/20 14:11 83 16 117/68 97 06/03/20 14:10 79 19 06/03/20 14:00 81 25 H 06/03/20 13:50 84 16 97 06/03/20 13:48 83 18 97 06/03/20 13:40 76 19 96 06/03/20 13:30 36.5 C 78 20 137/69 97 06/03/20 13:28 82 17 137/69 95 06/03/20 13:27 86 16 96 06/03/20 13:24 79 28 H 137/69 94 Code Status & VTE Plan VTE Prophylaxis Plan VTE Prophylaxis will be ordered: Yes (1) CKD (chronic kidney disease), stage III Chronic kidney disease stage 3 subtype: stage 3b (GFR 30-44) Qualified Code(s): N18.32 - Chronic kidney disease, stage 3b
[2020-06-03 16:23] LABS: Troponin I < 0.015 ng/ml (0-0.045)
[2020-06-03 16:26] LABS: D Dimer 620 ug/L FEU (0-500)
[2020-06-03 16:35] LABS: T4 Free Thyroxine 0.89 ng/dl (0.8-1.6)
[2020-06-03] MEDS ORDERED: ALPRAZolam 0.5 MG TABLET PO PRN (18:37)
[2020-06-03] MEDS ORDERED: IPRATROPIUM BROMIDE NASAL SPRAY 0.06% 15ML NAE PRN (18:46)
[2020-06-03] MEDS ORDERED: GLUCOSE 40% GEL 15 GM TUBE PO PRN (18:51)
[2020-06-03] MEDS ORDERED: CARBOHYDRATES FOR HYPOGLYCEMIA PO PRN (18:51)
[2020-06-03] MEDS ORDERED: DEXTROSE 50% 50 ML SYRINGE IV PRN (18:51)
[2020-06-03] MEDS ORDERED: GLUCAGON FOR INJ 1 MG VIAL SQ PRN (18:51)
[2020-06-03] MEDS ORDERED: GLUCOSE 10 TABS/TUBE PO PRN (18:51)
[2020-06-03] MEDS: SODIUM CHLORIDE 0.9% 1000ML 1,000 ML IV SCH (20:45)
[2020-06-03] MEDS: INSULIN ASPART 100 UNITS/ML 3 ML PEN SC SCH (20:46)
[2020-06-03] MEDS: Heparin IV Adult Wt-Based Standard *NO* Bolus Protocol IV SCH ×2 (20:46→22:25)
[2020-06-03] MEDS: HEPARIN SODIUM/DEXTROSE 25,000 UNITS/500 ML BAG IV SCH (20:46)
[2020-06-03] MEDS: MONTELUKAST SODIUM 10 MG TABLET PO SCH (20:49)
[2020-06-03] MEDS: TOPIRAMATE 25 MG TAB PO SCH (21:14)
[2020-06-03] MEDS ORDERED: HEPARIN SOD 5,000 UNIT/0.5 ML VIAL SQ SCH (22:00)
[2020-06-04] MEDS: Heparin IV Adult Wt-Based Standard *NO* Bolus Protocol IV SCH (00:32)
[2020-06-04 03:26] LABS: Hemoglobin 12.5 g/dL (12.0-16.0); Mean Corpuscular Hemoglobin 29.3 pg (25-34); Mean Corpuscular Hgb Conc 32.9 g/dL (32-36); Mean Corpuscular Volume 89.2 fL (80-100); Mean Platelet Volume 10.6 fL (7.4-10.4); Platelet Count 200 K/uL (130-400); RDW Coefficient of Variation 15.3 % (11.5-14.5); RDW Standard Deviation 49.3 fL (36.4-46.3); Red Blood Count 4.26 M/uL (4.2-5.4); White Blood Count 5.22 K/uL (4.8-10.8)
[2020-06-04] MEDS: ACETAMINOPHEN 325 MG TAB PO PRN ×2 (03:30→19:47)
[2020-06-04 03:42] LABS: INR 1.9 (0.9-1.1); Prothrombin Time 18.9 Seconds (9.0-12.0)
[2020-06-04 03:44] LABS: Partial Thromboplastin Time 111.3 Seconds (21.0-31.0)
[2020-06-04 03:46] LABS: Blood Urea Nitrogen 23 mg/dl (7-18); Calcium 8.7 mg/dl (8.5-10.1); Carbon Dioxide 24 mmol/L (21-32); Chloride 109 mmol/L (98-107); Creatinine Clr Calc Pharmacy 44.6 ml/min; Est GFR (African American) 59.2; Est GFR (Non-African American) 51.1; Glucose Fasting 70 mg/dl (70-99); Potassium 3.7 mmol/L (3.5-5.1); Sodium 138 mmol/L (136-145)
[2020-06-04 03:50] LABS: Chol HDL Ratio 3; Cholesterol 149 mg/dl (0-200); HDL Cholesterol 52 mg/dl; LDL Cholesterol Calculated 76 mg/dl; Triglycerides 104 mg/dl (0-150); Troponin I < 0.015 ng/ml (0-0.045); VLDL Cholesterol 21 mg/dl
[2020-06-04 05:25] LABS: Appearance Urine Clear (Clear); Bacteria Urine Automated Negative (Negative); Bilirubin Urine Negative (Negative); Blood Urine Trace (Negative); Color Urine Yellow; Epithelial Cell Urine Auto >30 /lpf (0-5); Glucose Urine UA Negative (Negative); Ketones Urine Negative (Negative); Leukocyte Esterase Urine Trace (Negative); Nitrite Urine Negative (Negative); Protein Urine Negative (Negative); RBC Urine Automated 0-4 /hpf (0-4); Specific Gravity Urine 1.015 (1.000-1.030); Urobilinogen Urine Negative (Negative); pH Urine 7.5 (4.5-7.5)
[2020-06-04] MEDS: LEVOTHYROXINE SODIUM 125 MCG TABLET PO SCH (06:19)
[2020-06-04] MEDS: TOPIRAMATE 25 MG TAB PO SCH ×2 (08:06→20:51)
[2020-06-04] MEDS: ASPIRIN 81 MG ECTAB PO SCH (08:07)
[2020-06-04] MEDS: VENLAFAXINE HCL XR 150 MG CAPXR PO SCH (08:07)
[2020-06-04] MEDS: METOPROLOL SUCC 50MG EXT REL TAB PO SCH (08:07)
[2020-06-04] MEDS: PANTOprazole 40 MG TAB PO SCH (08:07)
[2020-06-04] MEDS: FERROUS SULFATE 325 MG TAB PO SCH (08:08)
[2020-06-04] MEDS: FOLIC ACID 1 MG TAB PO SCH (08:08)
--- NOTE | 2020-06-04 08:08 | Ultrasound Report ---
ULTRASOUND BILATERAL LOWER EXTREMITY VENOUS CLINICAL HISTORY: Leg pain. COMPARISON STUDY: No priors. TECHNIQUE: Real-time, grayscale, and color Doppler sonography of the deep veins of the right and left lower extremity was performed from the inguinal crease to the calf. Compression and augmentation wer e utilized. FINDINGS: There is no sonographic evidence of deep venous thrombosis identified in the right or left lower extremity. The common femoral, superficial femoral, and popliteal veins are patent and normally compressible bilaterally. The greater saphenous vein and the profunda femoris vein at the junction w ith the common femoral vein are clear in both legs. The visualized calf veins are patent bilaterally. IMPRESSION: There is no sonographic evidence of deep venous thrombosis identified in the right or lef t lower extremity. ACT 112: Negative or not required by law. Electronically signed by: Jay Sandoval M.D. 06/04/2020 8:06 AM
[2020-06-04] MEDS: FLUTICASONE FUROATE 100MCG 14 PUFFS/INHALER INH SCH (08:09)
[2020-06-04] MEDS: UMECLIDINIUM/VILANTEROL 62.5/25MCG 7 PUFFS/INHALER INH SCH (08:09)
[2020-06-04] MEDS: INSULIN ASPART 100 UNITS/ML 3 ML PEN SC SCH ×4 (08:10→21:34)
[2020-06-04] MEDS: SODIUM CHLORIDE 0.9% 1000ML 1,000 ML IV SCH ×3 (08:15→20:50)
[2020-06-04] MEDS ORDERED: NON-FORMULARY MEDICATION (Ferrous Sulfate 325 MG) PO SCH (09:00)
[2020-06-04 11:07] LABS: Partial Thromboplastin Ratio 4.5
[2020-06-04 11:18] LABS: Partial Thromboplastin Time 126.4 Seconds (21.0-31.0)
--- NOTE | 2020-06-04 12:27 | Electrocardiogram Report ---
Test Reason : Blood Pressure : / mmHG Vent. Rate : 065 BPM Atrial Rate : 326 BPM P-R Int : 000 ms QRS Dur : 080 ms QT Int : 326 ms P-R-T Axes : 000 029 -81 degrees QTc Int : 339 ms Atrial fibrillation Nonspecific ST and T wave abnormality Abnormal ECG When compared with ECG of 03-JUN-2020 13:26, No significant change was found Confirmed by Carlos Karimi ([id number]) on 06/04/2020 12:26:29 PM Referred By: REFERRED SELF Confirmed By:Carlos Karimi
--- NOTE | 2020-06-04 14:32 | Cardiology Consultation ---
Date of Consultation June 04, 2020 Assessment & Plan (1) Chest pain at rest: Lower extremity venous duplex is negative for DVT. Troponin negative x4. Patient to remain in the hospital, continue current medications including metoprolol, heparin bridge. Discontinue Coumadin after stress test. Dobutamine stress echocardiogram tomorrow. (2) Transaminitis: Presenting blood work on 06/03/2020 included direct bilirubin of 0.3, AST 135 units/L, normal ALT, 63 units/L, alkaline phosphatase 172 units/L. Repeat tomorrow. History of Present Illness Attending Physician: Rosie Bahena MD History of Present Illness Inga Barakta is a 79-year-old female seen in cardiology consultation per the request of Dr. Bajwa for the evaluation of chest discomfort. 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 She has a history of past cigarette smoking which she quit several years ago, and permanent atrial fibrillation for which she is on anticoagulation with Coumadin. The patient states that her had recently undergone shoulder surgery, and has had a difficult time recovering. He is currently hospitalized on the third floor having been readmitted. She does note that this is put a significant amount of stress on her. 2 days ago in the evening she started having feelings that she felt they have been due to indigestion, this progressed into a "vise like "pressure in her chest that waxed and waned throughout the day yesterday and she ultimately came to the hospital. EKG x2 reveals rate controlled atrial fibrillation with diffuse nonspecific T wave flattening, troponin I has been negative x3 thus far. During my assessment, she was feeling well without additional chest tightness. She does not have a history of coronary heart disease, she had a nonischemic response to dobutamine stress echocardiogram when admitted for chest discomfort in 2018. Allergies Allergy/AdvReac Type Severity Reaction Status Date / Time Sulfa (Sulfonamide Allergy Severe Severe Verified 06/03/20 14:52 Antibiotics) rxn: rash and hives celecoxib Allergy Intermediate Rash/Hives/ Verified 06/03/20 14:52 Itching. cephalexin Allergy Intermediate Rash/Hives/ Verified 06/03/20 14:52 Itching. furosemide Allergy Intermediate Rash/Hives/ Verified 06/03/20 14:52 Itching. gabapentin Allergy Intermediate Rash/Hives/ Verified 06/03/20 14:52 Itching. pregabalin Allergy Intermediate Rash/Hives/ Verified 06/03/20 14:52 Itching. meclizine Allergy Unknown Unknown Verified 06/03/20 14:52 methylprednisolone Allergy Unknown Rash/Hives/ Verified 06/03/20 14:52 Itching. Penicillins Allergy Unknown Unknown. Verified 06/03/20 14:52 prednisone Allergy Unknown Rash/Hives/ Verified 06/03/20 14:52 Itching. vancomycin Allergy Unknown Jodi Verified 06/03/20 14:52 syn. . dexamethasone AdvReac Intermediate Steroid Verified 06/03/20 14:52 psychosis. Home Medications Home Medications Medication Instructions Recorded Confirmed Type alprazolam 0.5 mg tablet 0.5 mg PO QID PRN tab 04/08/19 06/03/20 History folic acid 1 mg tablet 1 mg PO DAILY tab 04/08/19 06/03/20 History lansoprazole 15 mg capsule,delayed 15 mg PO DAILY cap 04/08/19 06/03/20 History release montelukast 10 mg tablet 10 mg PO DAILY tab 04/08/19 06/03/20 History topiramate 25 mg tablet 25 mg PO BID tab 04/08/19 06/03/20 History venlafaxine 150 mg 150 mg PO DAILY #30 cap 04/08/19 06/03/20 History capsule,extended release 24 hr warfarin 2 mg tablet 2 mg PO 6XWK tab 04/08/19 06/03/20 History fluticasone fur. 100 mcg-umeclid 1 puffs INH DAILY #60 ea 04/19/19 06/03/20 Rx 62.5 mcg-vilant 25 mcg inhalat.powder levothyroxine 125 mcg capsule 125 mcg PO DAILY 05/19/19 06/03/20 History CPAP Machine #1 ea 08/23/19 02/01/20 Rx miscellaneous medical supply #1 ea 10/26/19 02/01/20 Rx CPAP Machine #1 ea 04/06/20 Rx digoxin 125 mcg PO 3XWK 06/03/20 06/03/20 History ferrous sulfate 325 mg PO DAILY 06/03/20 06/03/20 History ipratropium bromide 2 spray INTRANASAL DAILY PRN 06/03/20 06/03/20 History metoprolol succinate 50 mg PO DAILY 06/03/20 06/03/20 History warfarin 3 mg PO WK 06/03/20 06/03/20 History Patient History Medical History Asthma, moderate persistent Atrial fibrillation and flutter CKD (chronic kidney disease), stage III Depression Diet-controlled diabetes mellitus HTN (hypertension) Hypothyroidism Meniere disease RADHA (obstructive sleep apnea) Pulmonary emphysema Surgical History H/O sinus surgery History of laminectomy History of repair of left rotator cuff Hx of neck surgery Family History Other No significant family history Social History Smoking Status: Former smoker Tobacco Type: Cigarettes packs per day: 1.5; Cigarettes Per Day: 30; Smoking End Date: 42 years ago; Second Hand Exposure: No; Do You Dip or Chew Tobacco: No; Tobacco Cessation Education Requested by Patient: No Hx Alcohol Use: No Hx Substance Use: No Preferred Language: Welsh Communication Ability: Effective Warper Fixer Required: No Beliefs That Will Affect Care: None Current Living Situation: Spouse Other Information That Helps Us Care for You: No Feels Safe at Home: Yes Safety Concerns: Feels Safe At This Time Assistive Devices: Glasses Review of Systems Review of Systems: All systems reviewed & are unremarkable except as noted in HPI & below Physical Exam Physical Exam: Temp Pulse Resp BP Pulse Ox 35.6 C L 73 20 123/75 96 06/04/20 11:34 06/04/20 11:34 06/04/20 11:34 06/04/20 11:34 06/04/20 11:34 Constitutional: WD/WN, vitals as above Respiratory: normal respiratory effort, lungs clear to auscultation Cardiovascular: Rate/Rhythm: + irregularly irregular Heart Sounds: no murmur Vessels: no JVD Extremities: no edema Gastrointestinal (Abdomen): normal bowel sounds, soft, nontender, no hepatosplenomegaly Neurologic: PERRL, EOMI, accommodation nl, no face palsy, no dysarthria Results & Data ([facility]) Vital Signs (Past 12 Hours) Vital Signs Temp Pulse Resp BP BP Pulse Ox 06/04/20 11:34 35.6 C L 73 20 123/75 96 06/04/20 07:27 36.7 C 67 20 128/72 95 06/04/20 03:50 36.6 C 86 18 148/81 H 97 Laboratory Results INR on presentation was 1.7, 1.9 today, PTT 126 seconds Troponin I less than 0.015 ng/ml x 4 measurements the most recent of which was at 1030 this morning. Diagnostic Findings EKG performed today 06/04/2020 and reviewed independently reveals atrial fibrillation with nonspecific diffuse T wave flattening, unchanged compared to prior tracing performed yesterday. Echocardiogram reveals severe left atrial dilatation, normal left ventricular wall motion, LVEF 60 to 65%, normal right ventricular chamber size and systolic function. Moderate pulmonary hypertension, estimated pulmonary artery systolic pressure 56 mmHg. Mild mitral rotation, mild tricuspid regurgitation.
[2020-06-04] MEDS ORDERED: WARFARIN SOD 2 MG TAB PO SCH (16:00)
[2020-06-04] MEDS ORDERED: Nursing to Pharmacy Communication SCH (16:45)
--- NOTE | 2020-06-04 18:12 | Hospitalist Progress Note ---
Date of Service June 04, 2020 Assessment & Plan (1) Chest pain at rest: Presented with substernal chest heaviness/chest discomfort CXR on admission showed no acute cardiopulmonary findings. EKG showed Afib with diffuse nonspecific T wave flattening Troponinx4 negative Echo showed mild concentric left ventricular hypertrophy. Left ventricular wall motion is normal. Ejection fraction 50 to 65%. Cardiology on board Plan for dobutamine stress echo in am Chol 140, HDL 52 and LDL 76 Continue metoprolol, aspirin and heparin brigde for now Will make NPO after midnight Continue monitor in tele (2) Transaminitis: Liver enzymes on admission with AST 135 and ALT 172 Will avoid hepatotoxic agents Monitor liver enzymes (3) CKD (chronic kidney disease), stage III: Creatinine at baseline Stable Elevated d-dimer/right lower extremity pain: INR subtherapeutic 1.7, ordered for IV heparin bridge with Coumadin Lower extremity Doppler ordered, We will avoid CT chest with contrast given acute renal failure on CKD stage III, Patient will be continued with active anticoagulation, CTA chest will not change any management Follow-up echo report for evidence of any right heart strain (4) Atrial fibrillation and flutter: rate control with Metoprolol and digoxin INR 1.9 today Continue heparin drip bridging with coumadin Continue monitor PT/INR DM type 2 Not on any DM meds Hb A1c pending RADHA : intolerant of CPAP Hypothyroidism TSH level elevated more than 14, with normal free T4 Possible sick euthyroid syndrome? We will continue with current dose of levothyroxine 125 mcg daily Repeat TSH level in next 2 to 3 weeks when acute illness has resolved Full code DVT prophylaxis : coumadin , Iv heparin bridge DISPOSITION : discharge to home when medically stable Clinic follow up with Dr Calvo at [facility] Follows with [facility] cardiology Dr. Hewitt in [facility] cardiology clinic Admission and Anticipated Discharge Date Admission Date: June 03, 2020 Subjective Pt was seen and examined Lying in bed with no distress Pt said that yesterday she felt a pressure in her chest She said that she could not able to work because the pain was so intense Pt said that her chest pain improved now Denies any palpitation, dizziness, fever and SOB Physical Exam Physical Exam: General- No acute distress Head- atraumatic Eyes- PERRL, EOMI, ENT- oropharynx clear Neck- supple, no JVD Lungs- clear to auscultation Heart- irregular rhythm; no murmur Abdomen- normal bowel sounds, soft, nontender Extremities- no calf tenderness Neuro- alert, oriented x 3; PERRL, EOMI; no facial palsy; no dysarthria Skin- warm & dry Results & Data Results & Data ([facility]) Vital Signs (Past 12 Hours) Vital Signs Temp Pulse Resp BP BP Pulse Ox 06/04/20 15:11 36.4 C L 64 20 114/72 93 06/04/20 11:34 35.6 C L 73 20 123/75 96 06/04/20 07:27 36.7 C 67 20 128/72 95 (1) CKD (chronic kidney disease), stage III Chronic kidney disease stage 3 subtype: stage 3b (GFR 30-44) Qualified Code(s): N18.32 - Chronic kidney disease, stage 3b
[2020-06-04 18:54] LABS: Partial Thromboplastin Ratio 2.7
[2020-06-04] MEDS: MONTELUKAST SODIUM 10 MG TABLET PO SCH (20:51)
[2020-06-05 01:38] LABS: Partial Thromboplastin Ratio 2.5
[2020-06-05] MEDS: HEPARIN SODIUM/DEXTROSE 25,000 UNITS/500 ML BAG IV SCH ×2 (02:32→23:49)
[2020-06-05] MEDS: LEVOTHYROXINE SODIUM 125 MCG TABLET PO SCH (05:58)
[2020-06-05 06:00] LABS: Estimated Average Glucose 128 mg/dl; Hemoglobin A1C 6.1 % (4.5-5.6)
[2020-06-05 08:16] LABS: Hematocrit (blood only) 37.8 % (37-47); Hemoglobin 12.2 g/dL (12.0-16.0); Mean Corpuscular Hemoglobin 28.8 pg (25-34); Mean Corpuscular Hgb Conc 32.3 g/dL (32-36); Mean Corpuscular Volume 89.4 fL (80-100); Mean Platelet Volume 10.5 fL (7.4-10.4); Platelet Count 185 K/uL (130-400); RDW Coefficient of Variation 15.4 % (11.5-14.5); RDW Standard Deviation 49.6 fL (36.4-46.3); Red Blood Count 4.23 M/uL (4.2-5.4)
[2020-06-05 08:28] LABS: INR 1.6 (0.9-1.1); Prothrombin Time 16.1 Seconds (9.0-12.0)
[2020-06-05 08:39] LABS: Partial Thromboplastin Ratio 2.2
[2020-06-05 08:48] LABS: Albumin Level 2.9 gm/dl (3.4-5.0); BUN Creatinine Ratio 16.4 (10-20); Calcium 9.4 mg/dl (8.5-10.1); Est GFR (African American) 64.4; Est GFR (Non-African American) 55.5; Potassium 4.2 mmol/L (3.5-5.1)
[2020-06-05 08:50] LABS: Partial Thromboplastin Time 61.6 Seconds (21.0-31.0)
[2020-06-05 08:51] LABS: Albumin Globulin Ratio 0.9 (0.9-2); Bilirubin,Total 0.6 mg/dl (0.2-1); Globulin 3.3 gm/dl (2.5-4.0); Total Protein 6.2 gm/dl (6.4-8.2)
[2020-06-05] MEDS ORDERED: ATROPINE SULFATE 0.1 MG/ML 10ML SYR IV ONE (09:20)
[2020-06-05] MEDS ORDERED: METOPROLOL TARTRATE 1 MG/ML VIAL IV ONE (09:20)
[2020-06-05] MEDS ORDERED: DOBUTamine HCL 12.5 MG/ML 20 ML VIAL IV ONE (09:22)
[2020-06-05] MEDS ORDERED: PERFLUTREN LIPID MICROSPHERE (DEFINITY) IV ONE (10:42)
--- NOTE | 2020-06-05 10:56 | Cardiology Progress Note ---
Date of Service June 05, 2020 Assessment & Plan (1) Chest pain at rest: No additional chest discomfort. Serial cardiac enzymes negative. Dobutamine stress test echo negative for ischemia with normal rest, normal stress wall motion, presenting symptoms were not reproduced having reached and achieve target heart rate. Mild equivocal EKG changes were noted with no associated symptoms during the test. (2) Transaminitis: Repeat hepatic function panel performed, AST now 245, ALT 368, alkaline phosphatase 210. Discussed with Dr. Bahena recommend further abdominal imaging. Patient has never had gallbladder surgery. She recalls that her symptoms that prompted admission happened a few hours after having a meal that included hamburgers. (3) Atrial fibrillation and flutter: Rate controlled, permanent atrial fibrillation. INR 1.6 today. She remains on heparin for bridge, pending further evaluation. Disposition: Keep n.p.o. for now, pending further abdominal imaging. Admission and Anticipated Discharge Date Admission Date: June 03, 2020 Subjective Patient seen prior to, during, and post dobutamine stress echocardiogram. No additional chest discomfort overnight last night. No nauseousness. Review of Systems 2 Review of Systems: All systems reviewed & are unremarkable except as noted in HPI & below Physical Exam Physical Exam: Temp Pulse Resp BP Pulse Ox 36.7 C 77 18 165/96 H 97 06/05/20 07:44 06/05/20 07:44 06/05/20 07:44 06/05/20 07:44 06/05/20 07:44 Constitutional: WD/WN, vitals as above Respiratory: normal respiratory effort, lungs clear to auscultation Cardiovascular: Rate/Rhythm: + irregularly irregular Heart Sounds: no murmur Vessels: no JVD Extremities: no edema Gastrointestinal (Abdomen): normal bowel sounds, soft, nontender, no hepatosplenomegaly Neurologic: PERRL, EOMI, accommodation nl, no face palsy, no dysarthria Results & Data ([facility]) Vital Signs (Past 12 Hours) Vital Signs Temp Pulse Resp BP BP Pulse Ox 06/05/20 07:44 36.7 C 77 18 165/96 H 97 06/05/20 03:00 36.5 C 64 20 112/69 95 06/04/20 23:32 36.6 C 69 20 116/68 93
--- NOTE | 2020-06-05 11:04 | Gastrointestinal Consultation ---
Date of Consultation June 05, 2020 Assessment & Plan (1) Transaminitis: 79 year old female admitted w/ epigastric bandlike pain/chest pressure with nausea w/o vomiting. She had a negative cardiac workup, newly noted transaminases w/ normal Tbili. DDX discussed: rule out acute biliary cause w/ MRCP concern for congestive hepatopathy MRCP ordered Trend LFts NPO until MRCP resulted Antiemetics PRN Analgesia PRN PO PPI 40 mg daily Thank you for allowing us to participate in the care of this patient. Please call with any acute changes, questions or concerns. Please see addendum below with additional recommendation from my supervising physician. Supervising Physician Co-Signing Physician Notes I have seen and examined the patient and discussed the management with JESS Zee. 79 yo female with a history of afib on outpatient coumadin and digoxin, admitted friday thru the er with chest pain, and bandlike abdominal pain that has now resolved. Cardiolgy workup over the weekend PE - well nourished fm in nad, HEENT - perrla, CV- rrr no mrg, loop recorder in upper chest, Pulm- ctab, Abd - soft nt nd +bs labs reviewed- mild ast/alt/alk phos elevation, normal bilirubin DSE reviewed Mild transaminitis with bump since being in here- no episodes of hypotension recorded. Differential could be mild ischemic hepatitis, right sided heart failure induced transaminitis per history, ? dili, versus gb etiology. She denies alcohol use. She remains on a heparin gtt. Would obtain MRCP, can have a diet - clear liquid or softs post imaging - if imaging happens to suggest cbd dilation then would keep her npo after midnite. Trend lft's. History of Present Illness Reason for Consultation: elevated LFTs Requesting Physician: Josef Attending Physician: Rosie Bahena MD History of Present Illness 79 year -old female past medical history of chronic A. fib, COPD, CKD stage III, hypertension, obstructive sleep apnea intolerant of CPAP admitted through the ED w/ chest pain (cardiac work up negative) - GI asked to evaluate for elevated transaminases w/ normal TB. Notes she developed upper abd bandlike pain that woke her from her sleep prior to arrival.Suggested this was associated with nausea but no vomiting. She noted persistent upper abd pain and discomfort and later felt dizzy as well - EMS was called and she was given Nitro en route. She was evaluated by cardiology - work up negative. She notes she has intermittent, mild epigastric pressure during the admission. She has had mild nausea as well. No GERD. No change in bowels but notes a history of IBS. No NSAIDs No ETOH No new meds No current GI imaging Colonoscopy 2016: Small hemorrhoids. - Diverticulosis in the sigmoid colon. - A single non-bleeding colonic angiodysplastic lesion. Treated with argon plasma coagulation (APC). Clips were placed. - Stigmata of prior therapy Allergies Allergy/AdvReac Type Severity Reaction Status Date / Time Sulfa (Sulfonamide Allergy Severe Severe Verified 06/03/20 14:52 Antibiotics) rxn: rash and hives celecoxib Allergy Intermediate Rash/Hives/ Verified 06/03/20 14:52 Itching. cephalexin Allergy Intermediate Rash/Hives/ Verified 06/03/20 14:52 Itching. furosemide Allergy Intermediate Rash/Hives/ Verified 06/03/20 14:52 Itching. gabapentin Allergy Intermediate Rash/Hives/ Verified 06/03/20 14:52 Itching. pregabalin Allergy Intermediate Rash/Hives/ Verified 06/03/20 14:52 Itching. meclizine Allergy Unknown Unknown Verified 06/03/20 14:52 methylprednisolone Allergy Unknown Rash/Hives/ Verified 06/03/20 14:52 Itching. Penicillins Allergy Unknown Unknown. Verified 06/03/20 14:52 prednisone Allergy Unknown Rash/Hives/ Verified 06/03/20 14:52 Itching. vancomycin Allergy Unknown Jodi Verified 06/03/20 14:52 syn. . dexamethasone AdvReac Intermediate Steroid Verified 06/03/20 14:52 psychosis. Home Medications Home Medications Medication Instructions Recorded Confirmed Type alprazolam 0.5 mg tablet 0.5 mg PO QID PRN tab 04/08/19 06/03/20 History folic acid 1 mg tablet 1 mg PO DAILY tab 04/08/19 06/03/20 History lansoprazole 15 mg capsule,delayed 15 mg PO DAILY cap 04/08/19 06/03/20 History release montelukast 10 mg tablet 10 mg PO DAILY tab 04/08/19 06/03/20 History topiramate 25 mg tablet 25 mg PO BID tab 04/08/19 06/03/20 History venlafaxine 150 mg 150 mg PO DAILY #30 cap 04/08/19 06/03/20 History capsule,extended release 24 hr warfarin 2 mg tablet 2 mg PO [id number] tab 04/08/19 06/03/20 History fluticasone fur. 100 mcg-umeclid 1 puffs INH DAILY #60 ea 04/19/19 06/03/20 Rx 62.5 mcg-vilant 25 mcg inhalat.powder levothyroxine 125 mcg capsule 125 mcg PO DAILY 05/19/19 06/03/20 History CPAP Machine #1 ea 08/23/19 02/01/20 Rx miscellaneous medical supply #1 ea 10/26/19 02/01/20 Rx CPAP Machine #1 ea 04/06/20 Rx digoxin 125 mcg PO 3XWK 06/03/20 06/03/20 History ferrous sulfate 325 mg PO DAILY 06/03/20 06/03/20 History ipratropium bromide 2 spray INTRANASAL DAILY PRN 06/03/20 06/03/20 History metoprolol succinate 50 mg PO DAILY 06/03/20 06/03/20 History warfarin 3 mg PO WK 06/03/20 06/03/20 History Patient History Medical History Asthma, moderate persistent Atrial fibrillation and flutter CKD (chronic kidney disease), stage III Depression Diet-controlled diabetes mellitus HTN (hypertension) Hypothyroidism Meniere disease RADHA (obstructive sleep apnea) Pulmonary emphysema Surgical History H/O sinus surgery History of laminectomy History of repair of left rotator cuff Hx of neck surgery Family History Other No significant family history Social History Smoking Status: Former smoker Tobacco Type: Cigarettes packs per day: 1.5; Cigarettes Per Day: 30; Smoking End Date: 42 years ago; Second Hand Exposure: No; Do You Dip or Chew Tobacco: No; Tobacco Cessation Education Requested by Patient: No Hx Alcohol Use: No Hx Substance Use: No Preferred Language: Nepalese Communication Ability: Effective Director Consumer Required: No Beliefs That Will Affect Care: None Current Living Situation: Spouse Other Information That Helps Us Care for You: No Feels Safe at Home: Yes Safety Concerns: Feels Safe At This Time Assistive Devices: Glasses Review of Systems Constitutional: no fever, no body aches and no weakness Respiratory: no cough, no dyspnea and no pain on inspiration Cardiovascular: no chest pain, no palpitations and no edema Gastrointestinal: + abdominal pain and + nausea; no vomiting, no coffee ground emesis, no hematemesis, no change in stools, no blood in stools and no melena Physical Exam Constitutional: well developed and well nourished; no acute distress and not ill appearing Neck: trachea midline Respiratory: normal respiratory effort Cardiovascular: Rate/Rhythm: regular rate and regular rhythm Gastrointestinal (Abdomen): normal bowel sounds, soft, nontender, no hepatosplenomegaly Skin: no rashes, warm and dry Results & Data ([facility]) Vital Signs (Past 12 Hours) Vital Signs Temp Pulse Resp BP BP Pulse Ox 06/05/20 07:44 36.7 C 77 18 165/96 H 97 06/05/20 03:00 36.5 C 64 20 112/69 95 06/04/20 23:32 36.6 C 69 20 116/68 93 Laboratory Results 06/05/20 06/05/20 06/05/20 Range/Units 07:50 07:50 07:50 WBC 5.80 (4.8-10.8) K/uL RBC 4.23 (4.2-5.4) M/uL Hgb 12.2 (12.0-16.0) g/dL Hct 37.8 (37-47) % MCV 89.4 (80-100) fL MCH 28.8 (25-34) pg MCHC 32.3 (32-36) g/dL RDW Std Deviation 49.6 H (36.4-46.3) fL RDW Coeff of Francisco Javier 15.4 H (11.5-14.5) % Plt Count 185 (130-400) K/uL MPV 10.5 H (7.4-10.4) fL PT (9.0-12.0) Seconds INR (0.9-1.1) APTT 61.6 H* (21.0-31.0) Seconds PTT Ratio 2.2 Sodium 143 (136-145) mmol/L Potassium 4.2 (3.5-5.1) mmol/L Chloride 115 H (98-107) mmol/L Carbon Dioxide 21 (21-32) mmol/L Anion Gap 7.0 (3-11) BUN 16 (7-18) mg/dl Creatinine 0.97 (0.6-1.2) mg/dl Est Cr Clr Drug Dosing 44.0 ml/min Est GFR ( Amer) 64.4 Est GFR (Non-Af Amer) 55.5 BUN/Creatinine Ratio 16.4 (10-20) Glucose 91 (70-99) mg/dl POC Glucose (70-99) mg/dl Estimat Average Glucose mg/dl Hemoglobin A1c (4.5-5.6) % Calcium 9.4 (8.5-10.1) mg/dl Total Bilirubin 0.6 (0.2-1) mg/dl AST 245 H (15-37) U/L ALT 368 H (12-78) U/L Alkaline Phosphatase 210 H (45-117) U/L Total Protein 6.2 L (6.4-8.2) gm/dl Albumin 2.9 L (3.4-5.0) gm/dl Globulin 3.3 (2.5-4.0) gm/dl Albumin/Globulin Ratio 0.9 (0.9-2) 06/05/20 06/05/20 06/05/20 Range/Units 07:50 07:23 00:50 WBC (4.8-10.8) K/uL RBC (4.2-5.4) M/uL Hgb (12.0-16.0) g/dL Hct (37-47) % MCV (80-100) fL MCH (25-34) pg MCHC (32-36) g/dL RDW Std Deviation (36.4-46.3) fL RDW Coeff of Francisco Javier (11.5-14.5) % Plt Count (130-400) K/uL MPV (7.4-10.4) fL PT 16.1 H (9.0-12.0) Seconds INR 1.6 H (0.9-1.1) APTT 70.0 H* (21.0-31.0) Seconds PTT Ratio 2.5 Sodium (136-145) mmol/L Potassium (3.5-5.1) mmol/L Chloride (98-107) mmol/L Carbon Dioxide (21-32) mmol/L Anion Gap (3-11) BUN (7-18) mg/dl Creatinine (0.6-1.2) mg/dl Est Cr Clr Drug Dosing ml/min Est GFR ( Amer) Est GFR (Non-Af Amer) BUN/Creatinine Ratio (-20) Glucose (70-99) mg/dl POC Glucose 95 (70-99) mg/dl Estimat Average Glucose mg/dl Hemoglobin A1c (4.5-5.6) % Calcium (8.5-10.1) mg/dl Total Bilirubin (0.2-1) mg/dl AST (15-37) U/L ALT (12-78) U/L Alkaline Phosphatase (45-117) U/L Total Protein (6.4-8.2) gm/dl Albumin (3.4-5.0) gm/dl Globulin (2.5-4.0) gm/dl Albumin/Globulin Ratio (0.9-2) 06/04/20 06/04/20 06/04/20 Range/Units 19:54 18:07 16:12 WBC (4.8-10.8) K/uL RBC (4.2-5.4) M/uL Hgb (12.0-16.0) g/dL Hct (37-47) % MCV (80-100) fL MCH (25-34) pg MCHC (32-36) g/dL RDW Std Deviation (36.4-46.3) fL RDW Coeff of Francisco Javier (11.5-14.5) % Plt Count (130-400) K/uL MPV (7.4-10.4) fL PT (9.0-12.0) Seconds INR (0.9-1.1) APTT 74.0 H* (21.0-31.0) Seconds PTT Ratio 2.7 Sodium (136-145) mmol/L Potassium (3.5-5.1) mmol/L Chloride (98-107) mmol/L Carbon Dioxide (21-32) mmol/L Anion Gap (3-11) BUN (7-18) mg/dl Creatinine (0.6-1.2) mg/dl Est Cr Clr Drug Dosing ml/min Est GFR ( Amer) Est GFR (Non-Af Amer) BUN/Creatinine Ratio (10-20) Glucose (70-99) mg/dl POC Glucose 101 H 90 (70-99) mg/dl Estimat Average Glucose mg/dl Hemoglobin A1c (4.5-5.6) % Calcium (8.5-10.1) mg/dl Total Bilirubin (0.2-1) mg/dl AST (15-37) U/L ALT (12-78) U/L Alkaline Phosphatase (45-117) U/L Total Protein (6.4-8.2) gm/dl Albumin (3.4-5.0) gm/dl Globulin (2.5-4.0) gm/dl Albumin/Globulin Ratio (0.9-2) 06/04/20 06/03/20 Range/Units 12:08 14:06 WBC (4.8-10.8) K/uL RBC (4.2-5.4) M/uL Hgb (12.0-16.0) g/dL Hct (37-47) % MCV (80-100) fL MCH (25-34) pg MCHC (32-36) g/dL RDW Std Deviation (36.4-46.3) fL RDW Coeff of Francisco Javier (11.5-14.5) % Plt Count (130-400) K/uL MPV (7.4-10.4) fL PT (9.0-12.0) Seconds INR (0.9-1.1) APTT (21.0-31.0) Seconds PTT Ratio Sodium (136-145) mmol/L Potassium (3.5-5.1) mmol/L Chloride (98-107) mmol/L Carbon Dioxide (21-32) mmol/L Anion Gap (3-11) BUN (7-18) mg/dl Creatinine (0.6-1.2) mg/dl Est Cr Clr Drug Dosing ml/min Est GFR ( Amer) Est GFR (Non-Af Amer) BUN/Creatinine Ratio (10-20) Glucose (70-99) mg/dl POC Glucose 104 H (70-99) mg/dl Estimat Average Glucose 128 mg/dl Hemoglobin A1c 6.1 H (4.5-5.6) % Calcium (8.5-10.1) mg/dl Total Bilirubin (0.2-1) mg/dl AST (15-37) U/L ALT (12-78) U/L Alkaline Phosphatase (45-117) U/L Total Protein (6.4-8.2) gm/dl Albumin (3.4-5.0) gm/dl Globulin (2.5-4.0) gm/dl Albumin/Globulin Ratio (0.9-2)
--- NOTE | 2020-06-05 12:02 | Ultrasound Report ---
BILIARY ULTRASOUND CLINICAL HISTORY: Elevated liver enzymes COMPARISON STUDY: 02/17/2017 FINDINGS: The pancreas appears normal as visualized. The liver is of slightly increased echogenicity finding suggestive of hepatic steatosis. There is no right-sided hydronephrosis. There are multiple r ight renal cysts the largest of which measures 27 mm. The gallbladder contains mobile calculi. There is mild gallbladder wall thickening. There is no ductal dilatation. The common bile duct measures 3 m m. IMPRESSION: 1. Borderline increase in hepatic echogenicity. Hepatic steatosis cannot be excluded 2. Cholelithiasis and mild gallbladder wall thickening. No evidence of ductal dilatation. ACT 112: Negative or not required by law. Electronically signed by: Juan Moya M.D. 06/05/2020 12:01 PM
[2020-06-05] MEDS: INSULIN ASPART 100 UNITS/ML 3 ML PEN SC SCH ×2 (12:50→14:02)
[2020-06-05] MEDS: SODIUM CHLORIDE 0.9% 1000ML 1,000 ML IV SCH (13:57)
[2020-06-05] MEDS: UMECLIDINIUM/VILANTEROL 62.5/25MCG 7 PUFFS/INHALER INH SCH (13:58)
[2020-06-05] MEDS: ASPIRIN 81 MG ECTAB PO SCH (13:58)
[2020-06-05] MEDS: VENLAFAXINE HCL XR 150 MG CAPXR PO SCH (13:58)
[2020-06-05] MEDS: FLUTICASONE FUROATE 100MCG 14 PUFFS/INHALER INH SCH (13:59)
[2020-06-05] MEDS: DIGOXIN 0.125 MG TAB PO SCH (13:59)
[2020-06-05] MEDS: PANTOprazole 40 MG TAB PO SCH (14:01)
[2020-06-05] MEDS: FOLIC ACID 1 MG TAB PO SCH (14:01)
[2020-06-05] MEDS: FERROUS SULFATE 325 MG TAB PO SCH (14:01)
[2020-06-05] MEDS: TOPIRAMATE 25 MG TAB PO SCH ×2 (14:02→20:47)
[2020-06-05] MEDS: METOPROLOL SUCC 50MG EXT REL TAB PO SCH (14:02)
--- NOTE | 2020-06-05 14:05 | Magnetic Resonance Report ---
MRCP CLINICAL HISTORY: Elevated hepatic transaminases. Intermittent abdominal pain. Nausea. COMPARISON STUDY: Abdominal CT dated 02/03/2017. Abdominal ultrasound dated 06/05/2020. TECHNIQUE: Abdominal MRCP is performed utilizing various T2-weighted images in the axial and coronal planes. IV contrast was not administered for this examination. 3-D reformats are created and assessed . FINDINGS: The gallbladder is distended and filled with numerous stones. The gallbladder wall appears thickened and edematous. Findings are concerning for acute cholecystitis. There is no intra or extrahepatic sam iary ductal dilatation. The common bile duct measures up to 4 mm in diameter. There are no filling de fects to suggest choledocholithiasis. The pancreatic duct is normal in caliber. The unenhanced liver, spleen, pancreas, and adrenal glands are grossly normal. The kidneys demonstrat e mild cortical atrophy and are without hydronephrosis. Numerous bilateral renal cysts measure up to 3.5 cm. The abdominal aorta is normal in caliber. There is no evidence of bowel obstruction. No abdom inal ascites is identified. No upper abdominal lymphadenopathy is seen. The heart is mildly enlarged noting a small pericardial effusion. No pleural effusion is identified. No destructive bony process i s seen. IMPRESSION: 1. Cholelithiasis with findings that are highly concerning for acute cholecystitis. Clinical correlat ion will be required. If this does not fit the clinical presentation a nuclear hepatobiliary scan cou ld be considered to assess for patency of the cystic duct. 2. There is no intra or extrahepatic biliary ductal dilatation. No choledocholithiasis is seen. 3. Additional findings as above. Dictated: 06/05/2020 1:32 PM Transcribed: 06/05/2020 2:00 PM Sue [id number] Cassi Electronically signed by: Jay Sandoval M.D. 06/05/2020 2:04 PM
[2020-06-05] MEDS ORDERED: WARFARIN SOD 3 MG TAB PO SCH (16:00)
[2020-06-05] MEDS ORDERED: INSULIN ASPART 100 UNITS/ML 3 ML PEN SC SCH ×2 (18:00→21:00)
--- NOTE | 2020-06-05 18:40 | Hospitalist Progress Note ---
Date of Service June 05, 2020 Assessment & Plan (1) Chest pain at rest: Presented with substernal chest heaviness/chest discomfort CXR on admission showed no acute cardiopulmonary findings. EKG showed Afib with diffuse nonspecific T wave flattening Troponinx4 negative Echo showed mild concentric left ventricular hypertrophy. Left ventricular wall motion is normal. Ejection fraction 50 to 65%. Cardiology on board Dobutamine stress echo done today was negative for ischemia Chol 140, HDL 52 and LDL 76 Continue metoprolol, aspirin and heparin bridge for now Will keep NPO for now since surgery will assess her for possible gallbladder surgery Continue monitor in tele (2) Transaminitis: Liver enzymes on admission with AST 135 and ALT 172 Liver enzymes worsening with AST 245, ALT 368 and ALK 210 Liver u/s showed cholelithiasis and mild gallbladder wall thickening. No evidence of ductal dilatation. MRCP showed cholelithiasis with findings that are highly concerning for acute cholecystitis. There is no intra or extrahepatic biliary ductal dilatation. No choledocholithiasis is seen. Gastro on board Will avoid hepatotoxic agents Monitor liver enzymes (3) Cholecystitis: Pt said that she recalled that her symptoms were started few hours after having a meal that included hamburgers. MRCP showed cholelithiasis with findings that are highly concerning for acute cholecystitis. There is no intra or extrahepatic biliary ductal dilatation. No choledocholithiasis is seen. Surgery consult Case discussed with Dr. Jones who plans to see her tonight and recommended to keep her NPO for now If surgery schedule for tomorrow, will start on clear liquid for tonight, then NPO in am Continue heparin drip for now, but will hold coumadin (in case if pt anticipates surgery ) (4) CKD (chronic kidney disease), stage III: Creatinine at baseline Stable Elevated d-dimer/right lower extremity pain: INR subtherapeutic 1.6, ordered for IV heparin drip for now Lower extremity Doppler ordered, We will avoid CT chest with contrast given acute renal failure on CKD stage III, Patient will be continued with active anticoagulation, CTA chest will not change any management Follow-up echo report for evidence of any right heart strain (5) Atrial fibrillation and flutter: rate control with Metoprolol and digoxin INR 1.6 today Continue heparin drip bridging for now since MRCP showed cholecystitis, possible anticipate surgery Will hold coumadin for now Continue monitor PT/INR DM type 2 Not on any DM meds Hb A1c pending RADHA : intolerant of CPAP Hypothyroidism TSH level elevated more than 14, with normal free T4 Possible sick euthyroid syndrome? We will continue with current dose of levothyroxine 125 mcg daily Repeat TSH level in next 2 to 3 weeks when acute illness has resolved Full code DVT prophylaxis : IV heparin drip Hold coumadin since pt anticipates surgery DISPOSITION : discharge to home when medically stable Clinic follow up with Dr Calvo at [facility] Follows with [facility] cardiology Dr. Hewitt in [facility] cardiology clinic Admission and Anticipated Discharge Date Admission Date: June 03, 2020 Subjective Pt was seen and examined Lying in bed with no distress Pt said that she feels fine She said that she is hungry She said that she does not have any pain or abdominal discomfort currently Denies any chest pain, palpitation, dizziness, sob, nausea and vomiting Physical Exam Physical Exam: General- No acute distress Head- atraumatic Eyes- PERRL, EOMI, ENT- oropharynx clear Neck- supple, no JVD Lungs- clear to auscultation Heart- irregular rhythm; no murmur Abdomen- normal bowel sounds, soft, nontender Extremities- no calf tenderness Neuro- alert, oriented x 3; PERRL, EOMI; no facial palsy; no dysarthria Skin- warm & dry Results & Data Results & Data ([facility]) Vital Signs (Past 12 Hours) Vital Signs Temp Pulse Pulse Pulse Resp BP BP 06/05/20 16:00 79 06/05/20 15:53 36.4 C L 69 18 129/85 06/05/20 13:59 78 06/05/20 13:55 36.7 C 82 82 18 127/79 06/05/20 11:54 36.4 C L 137 H 20 113/71 06/05/20 08:00 63 06/05/20 07:44 36.7 C 77 18 165/96 H Pulse Ox 06/05/20 16:00 06/05/20 15:53 95 06/05/20 13:59 06/05/20 13:55 97 06/05/20 11:54 94 06/05/20 08:00 06/05/20 07:44 97 (1) CKD (chronic kidney disease), stage III Chronic kidney disease stage 3 subtype: stage 3b (GFR 30-44) Qualified Code(s): N18.32 - Chronic kidney disease, stage 3b
[2020-06-05] MEDS ORDERED: Nursing to Pharmacy Communication SCH (20:15)
--- NOTE | 2020-06-05 20:24 | Surgery Consultation ---
Date of Consultation June 05, 2020 Assessment & Plan (1) Cholecystitis: pt is a 79 year-old female who was admitted to hospital for chest pain, pt had U/S and MRCP finding- acute cholecystitis with cholelithiasis, IMP: acute cholecystitis with cholelithiasis, Plan, I recommend to do laparoscopic cholecystectomy, possible open or cholangiogram tomorrow, D/W benefits, risks and alternatives of the surgery, the risks - infection, bleeding, injury CBD, NC, DVT, stroke, , pt and her daughter understood, they agree with the surgery. I answered all questions, soft diet tonight, NPO after MN, Hold heparin after MN, Present on Admission?: Yes (2) Cholelithiasis: Supervising Physician Co-Signing Physician Notes I have seen and examined the patient and discussed the management with JESS Zee. 79 yo female with a history of afib on outpatient coumadin and digoxin, admitted friday thru the er with chest pain, and bandlike abdominal pain that has now resolved. Cardiolgy workup over the weekend PE - well nourished fm in nad, HEENT - perrla, CV- rrr no mrg, loop recorder in upper chest, Pulm- ctab, Abd - soft nt nd +bs labs reviewed- mild ast/alt/alk phos elevation, normal bilirubin DSE reviewed Mild transaminitis with bump since being in here- no episodes of hypotension recorded. Differential could be mild ischemic hepatitis, right sided heart failure induced transaminitis per history, ? dili, versus gb etiology. She denies alcohol use. She remains on a heparin gtt. Would obtain MRCP, can have a diet - clear liquid or softs post imaging - if imaging happens to suggest cbd dilation then would keep her npo after midnite. Trend lft's. History of Present Illness Attending Physician: Rosie Bahena MD History of Present Illness Chief Complaint: Chest pain Primary Care Provider: Florentin Calvo, This is-A 79 year -old female past medical history of chronic A. fib, COPD, CKD stage III, hypertension, obstructive sleep apnea intolerant of CPAP Came to the ER with complaint of substernal chest pain started since yesterday afternoon. Patient was sitting when she started to experience chest tightness, worse with taking deep breath. No improvement with taking rest Throughout the night patient continued to feel chest discomfort, shortness of breath, had episode of sweating, In the morning, her symptoms continued to get worse, having shortness of breath, worsening of chest tightness with minimal activity. No cough, no fever or chills She denies of any feeling of palpitation, felt dizzy and lightheaded, EMS was called In route to the hospital, patient was given sublingual nitro, aspirin, which helped improvement of symptom In my time of interview, patient was symptom-free Patient reports of having pain on her right leg/feels like a sharp knot -day before yesterday, pain lasted for 1 day does not have any weakness or paresthesia INR 1.7, follows with Coumad[facility] clinic at [facility] She reports taking Coumadin as directed I ( Armnad Jones MD ) got a call for consult acute cholecystitis. I reviewed pt's H/P, labs, MRCP, U/S, with opt and her daughter, pt has mild RUQ pain now, no nausea, no vomiting, pt has been hold coumadin for 3 days, Details: BP 1 one 4/75, pulse 84, chronic A. fib, patient is 97% saturation in room air Allergies Allergy/AdvReac Type Severity Reaction Status Date / Time Sulfa (Sulfonamide Allergy Severe Severe Verified 06/03/20 14:52 Antibiotics) rxn: rash and hives celecoxib Allergy Intermediate Rash/Hives/ Verified 06/03/20 14:52 Itching. cephalexin Allergy Intermediate Rash/Hives/ Verified 06/03/20 14:52 Itching. furosemide Allergy Intermediate Rash/Hives/ Verified 06/03/20 14:52 Itching. gabapentin Allergy Intermediate Rash/Hives/ Verified 06/03/20 14:52 Itching. pregabalin Allergy Intermediate Rash/Hives/ Verified 06/03/20 14:52 Itching. meclizine Allergy Unknown Unknown Verified 06/03/20 14:52 methylprednisolone Allergy Unknown Rash/Hives/ Verified 06/03/20 14:52 Itching. Penicillins Allergy Unknown Unknown. Verified 06/03/20 14:52 prednisone Allergy Unknown Rash/Hives/ Verified 06/03/20 14:52 Itching. vancomycin Allergy Unknown Jodi Verified 06/03/20 14:52 syn. . dexamethasone AdvReac Intermediate Steroid Verified 06/03/20 14:52 psychosis. Home Medications Home Medications Medication Instructions Recorded Confirmed Type alprazolam 0.5 mg tablet 0.5 mg PO QID PRN tab 04/08/19 06/03/20 History folic acid 1 mg tablet 1 mg PO DAILY tab 04/08/19 06/03/20 History lansoprazole 15 mg capsule,delayed 15 mg PO DAILY cap 04/08/19 06/03/20 History release montelukast 10 mg tablet 10 mg PO DAILY tab 04/08/19 06/03/20 History topiramate 25 mg tablet 25 mg PO BID tab 04/08/19 06/03/20 History venlafaxine 150 mg 150 mg PO DAILY #30 cap 04/08/19 06/03/20 History capsule,extended release 24 hr warfarin 2 mg tablet 2 mg PO 6XWK tab 04/08/19 06/03/20 History fluticasone fur. 100 mcg-umeclid 1 puffs INH DAILY #60 ea 04/19/19 06/03/20 Rx 62.5 mcg-vilant 25 mcg inhalat.powder levothyroxine 125 mcg capsule 125 mcg PO DAILY 05/19/19 06/03/20 History CPAP Machine #1 ea 08/23/19 02/01/20 Rx miscellaneous medical supply #1 ea 10/26/19 02/01/20 Rx CPAP Machine #1 ea 04/06/20 Rx digoxin 125 mcg PO 3XWK 06/03/20 06/03/20 History ferrous sulfate 325 mg PO DAILY 06/03/20 06/03/20 History ipratropium bromide 2 spray INTRANASAL DAILY PRN 06/03/20 06/03/20 History metoprolol succinate 50 mg PO DAILY 06/03/20 06/03/20 History warfarin 3 mg PO WK 06/03/20 06/03/20 History Past Med/Surg History Medical History Asthma, moderate persistent Atrial fibrillation and flutter CKD (chronic kidney disease), stage III Depression Diet-controlled diabetes mellitus HTN (hypertension) Hypothyroidism Meniere disease RADHA (obstructive sleep apnea) Pulmonary emphysema Surgical History H/O sinus surgery History of laminectomy History of repair of left rotator cuff Hx of neck surgery Family History Other No significant family history Social History Smoking Status: Former smoker Tobacco Type: Cigarettes packs per day: 1.5; Feels Safe at Home: Yes Review of Systems Review of Systems: All systems reviewed & are unremarkable except as noted in HPI & below Allergies Allergy/AdvReac Type Severity Reaction Status Date / Time Sulfa (Sulfonamide Allergy Severe Severe Verified 06/03/20 14:52 Antibiotics) rxn: rash and hives celecoxib Allergy Intermediate Rash/Hives/ Verified 06/03/20 14:52 Itching. cephalexin Allergy Intermediate Rash/Hives/ Verified 06/03/20 14:52 Itching. furosemide Allergy Intermediate Rash/Hives/ Verified 06/03/20 14:52 Itching. gabapentin Allergy Intermediate Rash/Hives/ Verified 06/03/20 14:52 Itching. pregabalin Allergy Intermediate Rash/Hives/ Verified 06/03/20 14:52 Itching. meclizine Allergy Unknown Unknown Verified 06/03/20 14:52 methylprednisolone Allergy Unknown Rash/Hives/ Verified 06/03/20 14:52 Itching. Penicillins Allergy Unknown Unknown. Verified 06/03/20 14:52 prednisone Allergy Unknown Rash/Hives/ Verified 06/03/20 14:52 Itching. vancomycin Allergy Unknown Jodi Verified 06/03/20 14:52 syn. . nickel Allergy Unknown Verified 06/05/20 16:21 dexamethasone AdvReac Intermediate Steroid Verified 06/03/20 14:52 psychosis. Home Medications Home Medications Medication Instructions Recorded Confirmed Type alprazolam 0.5 mg tablet 0.5 mg PO QID PRN tab 04/08/19 06/03/20 History folic acid 1 mg tablet 1 mg PO DAILY tab 04/08/19 06/03/20 History lansoprazole 15 mg capsule,delayed 15 mg PO DAILY cap 04/08/19 06/03/20 History release montelukast 10 mg tablet 10 mg PO DAILY tab 04/08/19 06/03/20 History topiramate 25 mg tablet 25 mg PO BID tab 04/08/19 06/03/20 History venlafaxine 150 mg 150 mg PO DAILY #30 cap 04/08/19 06/03/20 History capsule,extended release 24 hr warfarin 2 mg tablet 2 mg PO 6XWK tab 04/08/19 06/03/20 History fluticasone fur. 100 mcg-umeclid 1 puffs INH DAILY #60 ea 04/19/19 06/03/20 Rx 62.5 mcg-vilant 25 mcg inhalat.powder levothyroxine 125 mcg capsule 125 mcg PO DAILY 05/19/19 06/03/20 History CPAP Machine #1 ea 08/23/19 02/01/20 Rx miscellaneous medical supply #1 ea 10/26/19 02/01/20 Rx CPAP Machine #1 ea 04/06/20 Rx digoxin 125 mcg PO 3XWK 06/03/20 06/03/20 History ferrous sulfate 325 mg PO DAILY 06/03/20 06/03/20 History ipratropium bromide 2 spray INTRANASAL DAILY PRN 06/03/20 06/03/20 History metoprolol succinate 50 mg PO DAILY 06/03/20 06/03/20 History warfarin 3 mg PO WK 06/03/20 06/03/20 History Patient History Medical History Asthma, moderate persistent Atrial fibrillation and flutter CKD (chronic kidney disease), stage III Depression Diet-controlled diabetes mellitus HTN (hypertension) Hypothyroidism Meniere disease RADHA (obstructive sleep apnea) Pulmonary emphysema Surgical History H/O sinus surgery History of laminectomy History of repair of left rotator cuff Hx of neck surgery Family History Other No significant family history Social History Smoking Status: Former smoker Tobacco Type: Cigarettes packs per day: 1.5; Cigarettes Per Day: 30; Smoking End Date: 42 years ago; Second Hand Exposure: No; Do You Dip or Chew Tobacco: No; Tobacco Cessation Education Requested by Patient: No Hx Alcohol Use: No Hx Substance Use: No Preferred Language: Ukrainian Communication Ability: Effective Luggage Liner Required: No Beliefs That Will Affect Care: None Current Living Situation: Spouse Other Information That Helps Us Care for You: No Feels Safe at Home: Yes Safety Concerns: Feels Safe At This Time Assistive Devices: Glasses and Hearing Aid - Right Review of Systems Review of Systems: All systems reviewed & are unremarkable except as noted in HPI & below Constitutional: as per Subjective / HPI Eyes: as per Subjective / HPI Ear, Nose, Mouth, Throat: as per Subjective / HPI Respiratory: as per Subjective / HPI PE Cardiovascular: as per Subjective / HPI Additional Comments: A-fib Gastrointestinal: as per Subjective / HPI Genitourinary: as per Subjective / HPI ARF Musculoskeletal: as per Subjective / HPI Integumentary: as per Subjective / HPI Neurologic: as per Subjective / HPI Psychiatric: as per Subjective / HPI Endocrine: as per Subjective / HPI Hematologic / Lymphatic: as per Subjective / HPI Physical Exam Constitutional: WD/WN, vitals as above well developed and well nourished Eyes: PERRL, conjunctivae normal, anicteric sclerae ENMT: external ear and nose normal, oropharynx normal Neck: trachea midline, no thyromegaly Respiratory: normal respiratory effort, lungs clear to auscultation Cardiovascular: Heart Sounds: normal S1 and normal S2 A-fib Gastrointestinal (Abdomen): soft, mild tenderness at RUQ, no rebound pain, no distend Musculoskeletal: no cyanosis or clubbing, extremities motor strength 5/5 Skin: no rashes, warm and dry Neurologic: patellar DTR's 2+ bilat, sensation intact Psychiatric: Orientation: alert and oriented x 3 Results & Data ([facility]) Vital Signs (Past 12 Hours) Vital Signs Temp Pulse Pulse Pulse Resp BP BP 06/05/20 19:50 36.5 C 76 20 156/74 H 06/05/20 16:00 79 06/05/20 15:53 36.4 C L 69 18 129/85 06/05/20 13:59 78 06/05/20 13:55 36.7 C 82 82 18 127/79 06/05/20 11:54 36.4 C L 137 H 20 113/71 Pulse Ox 06/05/20 19:50 94 06/05/20 16:00 06/05/20 15:53 95 06/05/20 13:59 06/05/20 13:55 97 06/05/20 11:54 94 Laboratory Results Abnormal lab results 06/03/20 06/05/20 06/05/20 Range/Units 14:06 00:50 07:50 RDW Std Deviation (36.4-46.3) fL RDW Coeff of Francisco Javier (11.5-14.5) % MPV (7.4-10.4) fL PT 16.1 H (9.0-12.0) Seconds INR 1.6 H (0.9-1.1) APTT 70.0 H* (21.0-31.0) Seconds Chloride (98-107) mmol/L POC Glucose (70-99) mg/dl Hemoglobin A1c 6.1 H (4.5-5.6) % AST (15-37) U/L ALT (12-78) U/L Alkaline Phosphatase (45-117) U/L Total Protein (6.4-8.2) gm/dl Albumin (3.4-5.0) gm/dl 06/05/20 06/05/20 06/05/20 Range/Units 07:50 07:50 07:50 RDW Std Deviation 49.6 H (36.4-46.3) fL RDW Coeff of Francisco Javier 15.4 H (11.5-14.5) % MPV 10.5 H (7.4-10.4) fL PT (9.0-12.0) Seconds INR (0.9-1.1) APTT 61.6 H* (21.0-31.0) Seconds Chloride 115 H (98-107) mmol/L POC Glucose (70-99) mg/dl Hemoglobin A1c (4.5-5.6) % AST 245 H (15-37) U/L ALT 368 H (12-78) U/L Alkaline Phosphatase 210 H (45-117) U/L Total Protein 6.2 L (6.4-8.2) gm/dl Albumin 2.9 L (3.4-5.0) gm/dl 06/05/20 06/05/20 06/05/20 Range/Units 18:03 18:34 20:21 RDW Std Deviation (36.4-46.3) fL RDW Coeff of Francisco Javier (11.5-14.5) % MPV (7.4-10.4) fL PT (9.0-12.0) Seconds INR (0.9-1.1) APTT (21.0-31.0) Seconds Chloride (98-107) mmol/L POC Glucose 62 L* 106 H 60 L* (70-99) mg/dl Hemoglobin A1c (4.5-5.6) % AST (15-37) U/L ALT (12-78) U/L Alkaline Phosphatase (45-117) U/L Total Protein (6.4-8.2) gm/dl Albumin (3.4-5.0) gm/dl Diagnostic Findings MRCP CLINICAL HISTORY: Elevated hepatic transaminases. Intermittent abdominal pain. Nausea. COMPARISON STUDY: Abdominal CT dated 02/03/2017. Abdominal ultrasound dated 06/05/2020. TECHNIQUE: Abdominal MRCP is performed utilizing various T2-weighted images in the axial and coronal planes. IV contrast was not administered for this examination. 3-D reformats are created and assessed. FINDINGS: The gallbladder is distended and filled with numerous stones. The gallbladder wall appears thickened and edematous. Findings are concerning for acute cholecys titis. There is no intra or extrahepatic biliary ductal dilatation. The common bile duct measures up to 4 mm in diameter. There are no filling defects to suggest choledocholithiasis. The pancreatic duct is normal in caliber. The unenhanced liver, spleen, pancreas, and adrenal glands are grossly normal. The kidneys demonstrate mild cortical atrophy and are without hydronephrosis. Numerous bilateral renal cysts measure up to 3.5 cm. The abdominal aorta is normal in caliber. There is no evidence of bowel obstruction. No abdominal ascites is identified. No upper abdominal lymphadenopathy is seen. The heart is mildly enlarged noting a small pericardial effusion. No pleural effusion is identified. No destructive bony process is seen. IMPRESSION: 1. Cholelithiasis with findings that are highly concerning for acute cholecystitis. Clinical correlation will be required. If this does not fit the clinical presentation a nuclear hepatobiliary scan could be considered to assess for patency of the cystic duct. 2. There is no intra or extrahepatic biliary ductal dilatation. No choledocholithiasis is seen. 3. Additional findings as above. BILIARY ULTRASOUND CLINICAL HISTORY: Elevated liver enzymes COMPARISON STUDY: 02/17/2017 FINDINGS: The pancreas appears normal as visualized. The liver is of slightly increased echogenicity finding suggestive of hepatic steatosis. There is no right-sided hydronephrosis. There are multiple right renal cysts the largest of which measures 27 mm. The gallbladder contains mobile calculi. There is mild gallbladder wall thickening. There is no ductal dilatation. The common bile duct measures 3 mm. IMPRESSION: 1. Borderline increase in hepatic echogenicity. Hepatic steatosis cannot be excluded 2. Cholelithiasis and mild gallbladder wall thickening. No evidence of ductal dilatation.
[2020-06-05] MEDS: MONTELUKAST SODIUM 10 MG TABLET PO SCH (20:47)
[2020-06-06] MEDS ORDERED: D5W AND LACTATED RINGERS 1,000 ML IV SCH
[2020-06-06] MEDS: LEVOTHYROXINE SODIUM 125 MCG TABLET PO SCH (05:33)
[2020-06-06] MEDS ORDERED: Nursing to Pharmacy Communication SCH ×2 (05:45→15:15)
[2020-06-06] MEDS ORDERED: CIPROFLOXACIN / D5W 400 MG/200 ML BAG IV SCH (06:00)
[2020-06-06] MEDS: INSULIN ASPART 100 UNITS/ML 3 ML PEN SC SCH ×5 (06:42→20:43)
--- NOTE | 2020-06-06 07:14 | Anesthesiology Consultation ---
Date of Service June 06, 2020 Assessment & Plan (1) Encounter for pre-operative examination: Chart Review Chart Review: Acceptable Risk for Surgery and Patient NOT seen in Pre Admission Testing Consults Requested none ASA ASA3 Proposed Anesthesia Anesthesia Type: General Risk / Benefits Reviewed With: PT / POA / Parent / Guardian, Accepts Plan and Informed Consent Obtained History Surgery Operation Date: 06/06/20 10:50 Proposed Procedures p Laparoscopic Cholecystectomy - Armand Jones MD Height/Weight Height: 5 ft 6 in Weight: 69.9 kg Allergies Allergy/AdvReac Type Severity Reaction Status Date / Time Sulfa (Sulfonamide Allergy Severe Severe Verified 06/03/20 14:52 Antibiotics) rxn: rash and hives celecoxib Allergy Intermediate Rash/Hives/ Verified 06/03/20 14:52 Itching. cephalexin Allergy Intermediate Rash/Hives/ Verified 06/03/20 14:52 Itching. furosemide Allergy Intermediate Rash/Hives/ Verified 06/03/20 14:52 Itching. gabapentin Allergy Intermediate Rash/Hives/ Verified 06/03/20 14:52 Itching. pregabalin Allergy Intermediate Rash/Hives/ Verified 06/03/20 14:52 Itching. meclizine Allergy Unknown Unknown Verified 06/03/20 14:52 methylprednisolone Allergy Unknown Rash/Hives/ Verified 06/03/20 14:52 Itching. Penicillins Allergy Unknown Unknown. Verified 06/03/20 14:52 prednisone Allergy Unknown Rash/Hives/ Verified 06/03/20 14:52 Itching. vancomycin Allergy Unknown Jodi Verified 06/03/20 14:52 syn. . nickel Allergy Unknown Verified 06/05/20 16:21 dexamethasone AdvReac Intermediate Steroid Verified 06/03/20 14:52 psychosis. Medications Home Medications Medication Instructions Recorded Confirmed Last Taken alprazolam 0.5 mg tablet 0.5 mg PO QID PRN tab 04/08/19 06/03/20 Unknown folic acid 1 mg tablet 1 mg PO DAILY tab 04/08/19 06/03/20 06/03/20 lansoprazole 15 mg capsule,delayed 15 mg PO DAILY cap 04/08/19 06/03/20 06/03/20 release montelukast 10 mg tablet 10 mg PO DAILY tab 04/08/19 06/03/20 06/03/20 topiramate 25 mg tablet 25 mg PO BID tab 04/08/19 06/03/20 06/03/20 venlafaxine 150 mg 150 mg PO DAILY #30 cap 04/08/19 06/03/20 06/03/20 capsule,extended release 24 hr warfarin 2 mg tablet 2 mg PO 6XWK tab 04/08/19 06/03/20 06/02/20 fluticasone fur. 100 mcg-umeclid 1 puffs INH DAILY #60 ea 04/19/19 06/03/20 06/03/20 62.5 mcg-vilant 25 mcg inhalat.powder levothyroxine 125 mcg capsule 125 mcg PO DAILY 05/19/19 06/03/20 06/03/20 CPAP Machine #1 ea 08/23/19 02/01/20 Unknown miscellaneous medical supply #1 ea 10/26/19 02/01/20 Unknown CPAP Machine #1 ea 04/06/20 Unknown digoxin 125 mcg PO 3XWK 06/03/20 06/03/20 06/02/20 ferrous sulfate 325 mg PO DAILY 06/03/20 06/03/20 06/03/20 ipratropium bromide 2 spray INTRANASAL DAILY PRN 06/03/20 06/03/20 06/03/20 metoprolol succinate 50 mg PO DAILY 06/03/20 06/03/20 06/03/20 warfarin 3 mg PO WK 06/03/20 06/03/20 05/29/20 Active Medications Generic Name Dose Route Start Last Admin Trade Name Freq PRN Reason Stop Dose Admin Acetaminophen 650 mg 06/03/20 15:30 06/04/20 19:47 Acetaminophen 325 Mg Tab PO 07/03/20 15:29 650 mg Q4H PRN Administration Pain or Fever Aspirin 81 mg 06/04/20 09:00 06/05/20 13:58 Aspirin 81 Mg Ectab PO 07/04/20 08:59 81 mg QAM JULIO CESAR Administration Dextrose 25 - 50 ml 06/03/20 18:51 06/05/20 18:07 Dextrose 50% 50 Ml Syringe IV 07/03/20 18:50 25 ml UD PRN Administration Hypoglycemia Protocol Protocol Digoxin 0.125 mg 06/05/20 09:00 06/05/20 13:59 Digoxin 0.125 Mg Tab PO 07/05/20 08:59 0.125 mg [id number] JULIO CESAR Administration Ferrous Sulfate 325 mg 06/04/20 09:00 06/05/20 14:01 Ferrous Sulfate 325 Mg Tab PO 07/04/20 08:59 325 mg DAILY JULIO CESAR Administration Fluticasone Furoate 1 puffs 06/04/20 09:00 06/05/20 13:59 Fluticasone Furoate 100mcg 14 Puffs/Inhaler INH 07/04/20 08:59 Not Given DAILY JULIO CESAR Protocol Folic Acid 1 mg 06/04/20 09:00 06/05/20 14:01 Folic Acid 1 Mg Tab PO 07/04/20 08:59 1 mg DAILY JULIO CESAR Administration Heparin Sodium/Dextrose 25,000 units in 500 mls @ 0 mls/hr 06/03/20 20:00 06/05/20 23:49 Heparin Sodium/Dextrose IV 07/03/20 19:59 Not Given .Q0M JULIO CESAR Protocol 0 UNITS/HR Dextrose/Lactated Ringer's 1,000 mls @ 40 mls/hr 06/06/20 00:00 06/05/20 23:45 D5w And Lactated Ringers IV 07/06/20 00:00 40 mls/hr .Q24H JULIO CESAR Administration Insulin Aspart 0 units 06/06/20 06:00 06/06/20 06:42 Insulin Aspart 100 Units/Ml 3 Ml Pen SC 07/06/20 05:59 Not Given Q6 JULIO CESAR Levothyroxine Sodium 125 mcg 06/04/20 06:30 06/06/20 05:33 Levothyroxine Sodium 125 Mcg Tablet PO 07/04/20 06:29 Not Given DAILYBB JULIO CESAR Metoprolol Succinate 50 mg 06/04/20 09:00 06/05/20 14:02 Metoprolol Succ 50mg Ext Rel Tab PO 07/04/20 08:59 50 mg DAILY JULIO CESAR Administration Miscellaneous 15 - 30 gm 06/03/20 18:51 06/05/20 20:30 Carbohydrates For Hypoglycemia PO 07/03/20 18:50 15 gm UD PRN Administration Hypoglycemia Protocol Montelukast Sodium 10 mg 06/03/20 21:00 06/05/20 20:47 Montelukast Sodium 10 Mg Tablet PO 07/03/20 20:59 10 mg HS JULIO CESAR Administration Pantoprazole Sodium 40 mg 06/04/20 09:00 06/05/20 14:01 Pantoprazole 40 Mg Tab PO 07/04/20 08:59 40 mg DAILY JULIO CESAR Administration Topiramate 25 mg 06/03/20 21:00 06/05/20 20:47 Topiramate 25 Mg Tab PO 07/03/20 20:59 25 mg BID JULIO CESAR Administration Umeclidinium/Vilanterol 1 puffs 06/04/20 09:00 06/05/20 13:58 Umeclidinium/Vilanterol 62.5/25mcg 7 Puffs/Inhaler INH 07/04/20 08:59 Not Given DAILY JULIO CESAR Protocol Venlafaxine HCl 150 mg 06/04/20 09:00 06/05/20 13:58 Venlafaxine Hcl Xr 150 Mg Capxr PO 07/04/20 08:59 150 mg DAILY JULIO CESAR Administration Past Medical History Medical History Asthma, moderate persistent Atrial fibrillation and flutter CKD (chronic kidney disease), stage III Depression Diet-controlled diabetes mellitus HTN (hypertension) Hypothyroidism Meniere disease RADHA (obstructive sleep apnea) Pulmonary emphysema Past Family History Family History Other No significant family history Past Surgical History Surgical History H/O sinus surgery History of laminectomy History of repair of left rotator cuff Hx of neck surgery Social History Smoking Status: Former smoker tobacco type: cigarettes Smoking cigarettes per day: 30 Do You Dip or Chew Tobacco: No Smoking End Date: 42 years ago Hx Alcohol Use: No Hx Substance Use: No substance use type: does not use Physical Exam Vital Signs Last Vital Signs Temp 36.4 C L 06/06/20 06:53 Pulse 76 06/06/20 06:53 Resp 20 06/06/20 06:53 BP 115/64 06/06/20 06:53 Pulse Ox 90 06/06/20 06:53 Testing Laboratory Results 06/05/20 07:50 06/05/20 07:50 PT 16.1 Seconds (9.0-12.0) H 06/05/20 07:50 INR 1.6 (0.9-1.1) H 06/05/20 07:50 APTT 61.6 Seconds (21.0-31.0) H* 06/05/20 07:50 Hemoglobin A1c 6.1 % (4.5-5.6) H 06/03/20 14:06 Urine Color Yellow 06/04/20 04:50 Urine Appearance Clear (Clear) 06/04/20 04:50 Urine pH 7.5 (4.5-7.5) 06/04/20 04:50 Ur Specific [place] 1.015 (1.000-1.030) 06/04/20 04:50 Urine Protein Negative (Negative) 06/04/20 04:50 Urine Glucose (UA) Negative (Negative) 06/04/20 04:50 Urine Ketones Negative (Negative) 06/04/20 04:50 Urine Nitrite Negative (Negative) 06/04/20 04:50 Ur Leukocyte Esterase Trace (Negative) H 06/04/20 04:50 Urine WBC (Auto) 1-5 /hpf (0-5) 06/04/20 04:50 Urine RBC (Auto) 0-4 /hpf (0-4) 06/04/20 04:50 U Hyaline Cast (Auto) 1-5 /lpf (0-5) 06/04/20 04:50 U Epithel Cells (Auto) >30 /lpf (0-5) H 06/04/20 04:50 Urine Bacteria (Auto) Negative (Negative) 06/04/20 04:50 06/06/20 06/06/20 06/05/20 07:18 06:39 23:54 POC Glucose 103 H 109 H 111 H 06/05/20 06/05/20 20:50 20:21 POC Glucose 73 60 L* Electrocardiogram Date: 06/04/20 Findings: + AFIB @ (65) Nonspecific ST and T wave abnormality Abnormal ECG When compared with ECG of 03-JUN-2020 13:26, No significant change was found Echocardiogram Date: 06/05/20 EF: 60-65 mild concentric LVH, normal wall motion of LV, normal LV systolic function, left atrium severely dilated, mild mitral regurg, mild tricuspid regurg, moderate pulmonary HTN, estimated pulmonary artery systolic pressure 56 mmHg Stress Test Date: 06/05/20 Type: exercise Findings: + WNL
[2020-06-06] MEDS ORDERED: MIDAZOLAM HCL 1 MG/ML 2ML VIAL ONE (07:36)
[2020-06-06] MEDS ORDERED: fentaNYL citrate 100 MCG/2 ML VIAL ONE (07:36)
[2020-06-06] MEDS ORDERED: LIDOCAINE HCL 2% 2 ML VIAL/AMP(20MG/ML) INFIL ONE (07:37)
[2020-06-06] MEDS ORDERED: ONDANSETRON INJ 2 MG/ML 2 ML VIAL ONE (07:37)
[2020-06-06] MEDS ORDERED: PROPOFOL IV EMULSION 10 MG/ML 20 ML VIAL IV ONE (07:37)
[2020-06-06] MEDS ORDERED: CISATRACURIUM BESYLATE IV SOLN 2 MG/ML 10 ML VIAL IV ONE (07:37)
[2020-06-06] MEDS ORDERED: LIDOCAINE HCL 1% 20 ML VIAL ONE (07:38)
[2020-06-06] MEDS ORDERED: BUPIVACAINE 0.5 % 5 MG/1 ML MPF 30ML VIAL ONE (07:38)
--- NOTE | 2020-06-06 07:40 | History & Physical Bridge Note ---
Date of Service June 06, 2020 History & Physical Bridge Note I have examined the patient, reviewed the History & Physical and in the interval since the performance of the History & Physical I have noted the following changes of clinical significance: no changes noted Supervising Physician Co-Signing Physician Notes I have seen and examined the patient and discussed the management with JESS Zee. 79 yo female with a history of afib on outpatient coumadin and digoxin, admitted friday thru the er with chest pain, and bandlike abdominal pain that has now resolved. Cardiolgy workup over the weekend PE - well nourished fm in nad, HEENT - perrla, CV- rrr no mrg, loop recorder in upper chest, Pulm- ctab, Abd - soft nt nd +bs labs reviewed- mild ast/alt/alk phos elevation, normal bilirubin DSE reviewed Mild transaminitis with bump since being in here- no episodes of hypotension recorded. Differential could be mild ischemic hepatitis, right sided heart failure induced transaminitis per history, ? dili, versus gb etiology. She denies alcohol use. She remains on a heparin gtt. Would obtain MRCP, can have a diet - clear liquid or softs post imaging - if imaging happens to suggest cbd dilation then would keep her npo after midnite. Trend lft's.
[2020-06-06] MEDS ORDERED: CIPROFLOXACIN 400MG / 200ML D5W IV ONE (07:44)
[2020-06-06] MEDS ORDERED: HYDROmorphone INJ 1 MG/ML SYRINGE IV PRN (07:57)
[2020-06-06] MEDS ORDERED: fentaNYL citrate 100 MCG/2 ML VIAL IV PRN (07:57)
[2020-06-06] MEDS ORDERED: ALBUT/IPRATROP 3MG/0.5MG NEB 3 ML VIAL INH PRN (07:57)
[2020-06-06] MEDS ORDERED: ATROPINE SULFATE 0.1 MG/ML 10ML SYR IV PRN (07:57)
[2020-06-06] MEDS ORDERED: ONDANSETRON INJ 2 MG/ML 2 ML VIAL IV PRN (07:57)
[2020-06-06] MEDS ORDERED: ePHEDrine sulfate 50 MG/ML AMP IV PRN (07:57)
[2020-06-06 08:03] LABS: INR 1.2 (0.9-1.1); Partial Thromboplastin Ratio 1.2; Partial Thromboplastin Time 34.7 Seconds (21.0-31.0)
[2020-06-06 08:28] LABS: Albumin Level 3.2 gm/dl (3.4-5.0); BUN Creatinine Ratio 13.8 (10-20); Calcium 9.6 mg/dl (8.5-10.1); Creatinine Clr Calc Pharmacy 40.3 ml/min; Est GFR (African American) 57.8; Est GFR (Non-African American) 49.9; Potassium 4.3 mmol/L (3.5-5.1)
[2020-06-06 08:31] LABS: Albumin Globulin Ratio 0.9 (0.9-2); Bilirubin,Total 0.4 mg/dl (0.2-1); Globulin 3.5 gm/dl (2.5-4.0); Total Protein 6.7 gm/dl (6.4-8.2)
[2020-06-06] MEDS ORDERED: GLYCOPYRROLATE 0.2 MG/ML VIAL ONE (09:09)
[2020-06-06] MEDS ORDERED: NEOSTIGMINE METHYLSULFATE 5 MG/5 ML SYR ONE (09:45)
[2020-06-06] MEDS: FOLIC ACID 1 MG TAB PO SCH (09:48)
[2020-06-06] MEDS: PANTOprazole 40 MG TAB PO SCH (09:48)
[2020-06-06] MEDS: UMECLIDINIUM/VILANTEROL 62.5/25MCG 7 PUFFS/INHALER INH SCH (09:48)
[2020-06-06] MEDS: FERROUS SULFATE 325 MG TAB PO SCH (09:48)
[2020-06-06] MEDS: FLUTICASONE FUROATE 100MCG 14 PUFFS/INHALER INH SCH (09:48)
[2020-06-06] MEDS: VENLAFAXINE HCL XR 150 MG CAPXR PO SCH (09:48)
[2020-06-06] MEDS: ASPIRIN 81 MG ECTAB PO SCH (09:48)
[2020-06-06] MEDS: TOPIRAMATE 25 MG TAB PO SCH ×2 (09:49→20:44)
[2020-06-06] MEDS: METOPROLOL SUCC 50MG EXT REL TAB PO SCH (09:49)
--- NOTE | 2020-06-06 10:02 | Post Operative Brief Note ---
Immediate Post Op Note v1 Date of Surgery June 06, 2020 Pre & Post Diagnosis Operation Date: 06/06/20 10:50 Pre-Op Diagnosis: Acute cholecystitis with cholelithiasis Post-Op Diagnosis: Acute cholecystitis with cholelithiasis I identified the patient and participated in the time-out.: Yes Procedure Operation Date: 06/06/20 10:50 Actual Procedures p Laparoscopic Cholecystectomy(Not Applicable) - Armand Jones MD Surgeon Armand Jones MD Curtain Cutter Hand operating room surgical technologist Estimated Blood Loss 10 Findings Consistent with Post-Op Diagnosis significant gallbladder wall thickening, edema, acute cholecystitis Fluids 600ml Specimens gallbladder Anesthesia Type General Complications none Disposition Accompanied Patient To Recovery: Yes Disposition: Recovery Room Overlapping Procedure I was immediately available: during the entire case.
--- NOTE | 2020-06-06 11:31 | Anesthesiology Progress Note ---
Date of Service June 06, 2020 Anesthesia Post Procedure Vital Signs Vital Signs: Temp Pulse Pulse Pulse Resp BP BP 06/06/20 11:25 36.4 C L 71 20 125/70 06/06/20 10:50 36.5 C 74 15 133/66 06/06/20 10:40 72 17 124/65 06/06/20 10:30 70 16 119/68 06/06/20 10:20 77 16 128/71 06/06/20 10:13 36.1 C L 84 16 128/73 06/06/20 07:57 69 20 144/75 H 06/06/20 07:20 68 06/06/20 06:53 36.4 C L 76 20 115/64 06/06/20 04:20 36.8 C 84 20 109/59 L 06/05/20 23:24 36.7 C 76 20 120/69 06/05/20 19:50 36.5 C 76 20 156/74 H 06/05/20 16:00 79 06/05/20 15:53 36.4 C L 69 18 129/85 06/05/20 13:59 78 06/05/20 13:55 36.7 C 82 82 18 127/79 06/05/20 11:54 36.4 C L 137 H 20 113/71 Pulse Ox 06/06/20 11:25 91 06/06/20 10:50 96 06/06/20 10:40 96 06/06/20 10:30 97 06/06/20 10:20 96 06/06/20 10:13 99 06/06/20 07:57 99 06/06/20 07:20 06/06/20 06:53 90 06/06/20 04:20 94 06/05/20 23:24 96 06/05/20 19:50 94 06/05/20 16:00 06/05/20 15:53 95 06/05/20 13:59 06/05/20 13:55 97 06/05/20 11:54 94 Pain Intensity Bilateral Chest: Pain Intensity: 1 Head: Pain Intensity: 3 Transfer of Care Handoff Completed per policy Notes Mental Status: alert / awake / arousable and participated in evaluation Patient Amnestic to Procedure: Yes Nausea / Vomiting: adequately controlled Pain: adequately controlled Airway Patency, RR, SpO2: stable & adequate BP & HR: stable & adequate Hydration State: stable & adequate Anesthetic Complications: no major complications apparent and Pt Satisfied with anesthetic care
[2020-06-06] MEDS: oxyCODONE/ACETAMINOPHEN 5mg/325mg TAB PO PRN ×2 (11:33→21:57)
--- NOTE | 2020-06-06 13:24 | Operative Report (OR) ---
DATE OF OPERATION: 06/06/2020 PREOPERATIVE DIAGNOSES: Acute cholecystitis, cholelithiasis. POSTOPERATIVE DIAGNOSES: Same. OPERATION: Laparoscopic cholecystectomy. SURGEON: Armand Jones MD. ANESTHESIA: General. ESTIMATED BLOOD LOSS: About 10 mL. FINDINGS: Significant gallbladder wall thickening and edema, acute cholecystitis. COMPLICATIONS: None. INDICATIONS FOR THE PROCEDURE: This is a 79-year-old female who was admitted to hospital for acute cholecystitis and the patient required to do laparoscopic cholecystectomy, possible open, possible cholangiogram. I did talk to the patient about the benefit, the risk, alternate procedure. I indicated the risks may include, but are not limited such as bleeding, infection, injury to common bile duct, injury to the bowel, myocardial infarction, DVT, stroke, even . The patient understands. She signed informed consent and I answered all questions. DETAILS OF PROCEDURE: We brought the patient to the OR, put the patient in the supine position. The patient received SCD on bilateral legs to prevent DVT. Also, patient received 400 mg of Cipro IV for prophylactic antibiotic. The patient received general anesthesia without difficulty. The abdomen was prepped and draped in routine sterile fashion. After time-out, I injected local anesthesia by using 1% lidocaine mixed with 0.5% Marcaine just above the umbilicus. Then I made a small incision just above umbilicus, opened fascia and opened peritoneum under direct vision, put a Faheem trocar in, connected to CO2 to create pneumoperitoneum. Flow rate at 6 liters per minute, pressure not more than 14 mmHg. Once we got a nice pneumoperitoneum, we put the camera in, looked around the abdomen, shows normal finding on the liver. However, the gallbladder shows gallbladder wall significant thickening, edema, confirmed diagnosis of acute cholecystitis. Once we confirmed diagnosis, we put another two 5 mm trocars on the right upper quadrant, one 11 trocar on the epigastric area. Once all trocars in, we used the grasper to hold the base of gallbladder, put in the direction to the diaphragm, another grasper to hold the pouch of gallbladder, put lateral to expose the triangle of Calot. The cystic duct was identified and mobilized. I put two 10 mm metal clips on the proximal cystic duct, one on the distal cystic duct. I then used a scissor for transection of cystic duct. Rechecked and no bile leak. The cystic artery was identified and mobilized. I put two 10 mm metal clips on the proximal cystic artery around the distal cystic artery and used a scissor for transection of cystic artery. Rechecked, no active bleeding. Then we used the Bovie to take down the gallbladder from the liver bed. Rechecked, no active bleeding, no bile leak from the liver bed. Then we removed the gallbladder through the catch bag. Then we reinserted Faheem trocar in, connected to CO2 to create pneumoperitoneum, again looked around the abdomen, no active bleeding, no bile leak from the liver bed and then we removed all trocar under direct vision. No active bleeding from the trocar sites. Pneumoperitoneum was released. Now closed the umbilical incision fascial layer by using 0 Vicryl [id number] x2, closed subcutaneous layer by using 2-0 Vicryl interruptedly, closed skin by using 4-0 Vicryl continuous running, closed the epigastric area 11 trocar site fascial layer by using 0 Vicryl [id number] x2, closed subcutaneous layer by using 2-0 Vicryl interruptedly, closed skin by using 4-0 Vicryl interruptedly and closed another two 5 mm trocar site skin only by using 4-0 Vicryl. Then, we put the dressing on. The patient tolerated the procedure well. All instrument, needle and sponge count were correct x2 at the end of the case. The patient transferred to recovery room in stable condition. I attest to the content of the Intraoperative Record and any orders documented therein. Any exception s are noted below.
[2020-06-06] MEDS: HYDROmorphone INJ 0.5 MG/0.5 ML SYR IV PRN (16:44)
[2020-06-06] MEDS: WARFARIN SOD 3 MG TAB PO SCH (16:47)
[2020-06-06] MEDS: HEPARIN SODIUM/DEXTROSE 25,000 UNITS/500 ML BAG IV SCH (17:38)
--- NOTE | 2020-06-06 17:48 | Hospitalist Progress Note ---
Date of Service June 06, 2020 Assessment & Plan (1) Chest pain at rest: Presented with substernal chest heaviness/chest discomfort CXR on admission showed no acute cardiopulmonary findings. EKG showed Afib with diffuse nonspecific T wave flattening Troponinx4 negative Echo showed mild concentric left ventricular hypertrophy. Left ventricular wall motion is normal. Ejection fraction 50 to 65%. Cardiology on board Dobutamine stress echo done today was negative for ischemia Chol 140, HDL 52 and LDL 76 Continue metoprolol, aspirin and heparin bridge for now Clinically stable (2) Transaminitis: Liver enzymes on admission with AST 135 and ALT 172 Liver enzymes trending down with AST from 245-->123, ALT from 368--> 269 and ALK from 210 -->222 Liver u/s showed cholelithiasis and mild gallbladder wall thickening. No evidence of ductal dilatation. MRCP showed cholelithiasis with findings that are highly concerning for acute cholecystitis. There is no intra or extrahepatic biliary ductal dilatation. No choledocholithiasis is seen. Gastro on board Will avoid hepatotoxic agents Monitor liver enzymes (3) Cholecystitis: Pt said that she recalled that her symptoms were started few hours after having a meal that included hamburgers. MRCP showed cholelithiasis with findings that are highly concerning for acute cholecystitis. There is no intra or extrahepatic biliary ductal dilatation. No choledocholithiasis is seen. Surgery consult S/P Laparoscopic Cholecystectomy performed by Dr. Jones today Cipro IV BID started by surgery Starting on clear liquid diet, will advance as tolerated Continue pain control (4) CKD (chronic kidney disease), stage III: Creatinine at baseline Stable Elevated d-dimer right lower extremity pain: Doppler of LE showed no evidence of DVT in right or left lower extremity. Clinically improves (5) Atrial fibrillation and flutter: rate control with Metoprolol and digoxin INR 1.2 today Resume heparin drip with bridging for now while in patient ECHO showed mild concentric left ventricular hypertrophy. Left ventricular wall motion is normal. Ejection fraction 60 to 65%. Coumadin resumed today Continue monitor PT/INR DM type 2 Not on any DM meds Hb A1c 6.1 Continue monitor BS RADHA : intolerant of CPAP Hypothyroidism TSH level elevated more than 14, with normal free T4 Possible sick euthyroid syndrome? We will continue with current dose of levothyroxine 125 mcg daily Repeat TSH level in next 2 to 3 weeks when acute illness has resolved Full code DVT prophylaxis : IV heparin drip Continue coumadin DISPOSITION : discharge to home when medically stable Clinic follow up with Dr Calvo at [facility] Follows with [facility] cardiology Dr. Hewitt in [facility] cardiology clinic Admission and Anticipated Discharge Date Admission Date: June 06, 2020 Subjective Pt was seen and examined Lying in bed with mild abdominal discomfort Pt just came back from OR Pt said that she feels tired Denies any chest pain, palpitation, dizziness and SOB Physical Exam Physical Exam: General- No acute distress Head- atraumatic Eyes- PERRL, EOMI, ENT- oropharynx clear Neck- supple, no JVD Lungs- clear to auscultation Heart- irregular rhythm; no murmur Abdomen- normal bowel sounds, soft, nontender Extremities- no calf tenderness Neuro- alert, oriented x 3; PERRL, EOMI; no facial palsy; no dysarthria Skin- warm & dry Results & Data Results & Data ([facility]) Vital Signs (Past 12 Hours) Vital Signs Temp Pulse Pulse Pulse Resp BP BP 06/06/20 15:41 36.5 C 64 18 130/68 06/06/20 12:43 36.4 C L 74 18 121/70 06/06/20 11:58 36.6 C 68 18 122/74 06/06/20 11:25 36.4 C L 71 20 125/70 06/06/20 10:50 36.5 C 74 15 133/66 06/06/20 10:40 72 17 124/65 06/06/20 10:30 70 16 119/68 06/06/20 10:20 77 16 128/71 06/06/20 10:13 36.1 C L 84 16 128/73 06/06/20 07:57 69 20 144/75 H 06/06/20 07:20 68 06/06/20 06:53 36.4 C L 76 20 115/64 Pulse Ox 06/06/20 15:41 90 06/06/20 12:43 92 06/06/20 11:58 92 06/06/20 11:25 91 06/06/20 10:50 96 06/06/20 10:40 96 06/06/20 10:30 97 06/06/20 10:20 96 06/06/20 10:13 99 06/06/20 07:57 99 06/06/20 07:20 06/06/20 06:53 90 (1) CKD (chronic kidney disease), stage III Chronic kidney disease stage 3 subtype: stage 3b (GFR 30-44) Qualified Code(s): N18.32 - Chronic kidney disease, stage 3b
[2020-06-06] MEDS: CIPROFLOXACIN / D5W 400 MG/200 ML BAG IV SCH (20:43)
[2020-06-06] MEDS: MONTELUKAST SODIUM 10 MG TABLET PO SCH (20:45)
[2020-06-07 00:33] LABS: Partial Thromboplastin Ratio 1.7
[2020-06-07 00:34] LABS: Partial Thromboplastin Time 48.1 Seconds (21.0-31.0)
[2020-06-07] MEDS: HYDROmorphone INJ 0.5 MG/0.5 ML SYR IV PRN ×2 (00:38→06:04)
[2020-06-07 02:13] LABS: Partial Thromboplastin Ratio 1.7
[2020-06-07 02:14] LABS: Partial Thromboplastin Time 47.6 Seconds (21.0-31.0)
[2020-06-07] MEDS: oxyCODONE/ACETAMINOPHEN 5mg/325mg TAB PO PRN ×3 (03:41→16:38)
[2020-06-07] MEDS: LEVOTHYROXINE SODIUM 125 MCG TABLET PO SCH (05:28)
[2020-06-07 06:21] LABS: Hematocrit (blood only) 35.6 % (37-47); Hemoglobin 11.7 g/dL (12.0-16.0); Mean Corpuscular Hemoglobin 29.6 pg (25-34); Mean Corpuscular Hgb Conc 32.9 g/dL (32-36); Mean Corpuscular Volume 90.1 fL (80-100); Mean Platelet Volume 10.5 fL (7.4-10.4); Platelet Count 187 K/uL (130-400); RDW Coefficient of Variation 15.5 % (11.5-14.5); RDW Standard Deviation 50.6 fL (36.4-46.3); Red Blood Count 3.95 M/uL (4.2-5.4); White Blood Count 10.92 K/uL (4.8-10.8)
[2020-06-07 06:42] LABS: INR 1.2 (0.9-1.1); Partial Thromboplastin Ratio 1.7
[2020-06-07 06:55] LABS: Partial Thromboplastin Time 46.6 Seconds (21.0-31.0)
[2020-06-07 06:57] LABS: BUN Creatinine Ratio 11.4 (10-20); Calcium 8.9 mg/dl (8.5-10.1); Creatinine Clr Calc Pharmacy 36.8 ml/min; Est GFR (African American) 51.9; Est GFR (Non-African American) 44.7; Potassium 3.8 mmol/L (3.5-5.1)
[2020-06-07 06:59] LABS: Albumin Globulin Ratio 0.9 (0.9-2); Bilirubin,Total 0.6 mg/dl (0.2-1); Globulin 3.3 gm/dl (2.5-4.0); Total Protein 6.3 gm/dl (6.4-8.2)
[2020-06-07] MEDS ORDERED: ACETAMINOPHEN 325 MG TAB PO PRN (07:33)
--- NOTE | 2020-06-07 07:55 | Surgery Progress Note ---
Date of Service June 07, 2020 Assessment & Plan (1) Cholecystitis: POD#1 lap wendi advance diet ambulate good progress Admission and Anticipated Discharge Date Admission Date: June 06, 2020 Subjective doing well pain controlled taking clears Review of Systems Constitutional: no fever and no chills Respiratory: no cough and no dyspnea Cardiovascular: no chest pain Gastrointestinal: + abdominal pain; no nausea, no vomiting and no change in bowel habits Genitourinary: no dysuria Musculoskeletal: no back pain Physical Exam Constitutional: well developed and well nourished Neck: trachea midline Respiratory: normal respiratory effort, lungs clear to auscultation Cardiovascular: RRR, no murmur, no edema Gastrointestinal (Abdomen): Inspection/Auscultation: abdomen normal to inspection; abdomen not distended Percussion/Palpation: + abdomen tender and abdomen soft; no guarding and abdomen not rigid Musculoskeletal: Head/Neck/Chest: normocephalic and head atraumatic Skin: no rashes, warm and dry Results & Data ([facility]) Vital Signs (Past 12 Hours) Vital Signs Temp Pulse Pulse Pulse Resp BP BP 06/07/20 07:47 36.5 C 87 20 135/73 06/07/20 03:00 36.7 C 90 20 125/67 06/07/20 02:30 89 06/06/20 22:48 37.4 C 98 H 20 130/76 Pulse Ox 06/07/20 07:47 90 06/07/20 03:00 92 06/07/20 02:30 06/06/20 22:48 91
[2020-06-07] MEDS: INSULIN ASPART 100 UNITS/ML 3 ML PEN SC SCH ×4 (08:28→20:59)
[2020-06-07] MEDS: CIPROFLOXACIN / D5W 400 MG/200 ML BAG IV SCH ×2 (08:28→19:58)
[2020-06-07] MEDS: VENLAFAXINE HCL XR 150 MG CAPXR PO SCH (08:29)
[2020-06-07] MEDS: FLUTICASONE FUROATE 100MCG 14 PUFFS/INHALER INH SCH (08:29)
[2020-06-07] MEDS: UMECLIDINIUM/VILANTEROL 62.5/25MCG 7 PUFFS/INHALER INH SCH (08:29)
[2020-06-07] MEDS: TOPIRAMATE 25 MG TAB PO SCH ×2 (08:29→20:07)
[2020-06-07] MEDS: METOPROLOL SUCC 50MG EXT REL TAB PO SCH (08:29)
[2020-06-07] MEDS: PANTOprazole 40 MG TAB PO SCH (08:29)
[2020-06-07] MEDS: DIGOXIN 0.125 MG TAB PO SCH (08:29)
[2020-06-07] MEDS: ASPIRIN 81 MG ECTAB PO SCH (08:29)
[2020-06-07] MEDS: FOLIC ACID 1 MG TAB PO SCH (08:30)
[2020-06-07] MEDS: FERROUS SULFATE 325 MG TAB PO SCH (08:30)
[2020-06-07] MEDS: WARFARIN SOD 3 MG TAB PO SCH (16:37)
--- NOTE | 2020-06-07 17:04 | Hospitalist Progress Note ---
Date of Service June 07, 2020 Assessment & Plan (1) Chest pain at rest: -Presented with substernal chest heaviness/chest discomfort -CXR on admission showed no acute cardiopulmonary findings. EKG showed Afib with diffuse nonspecific T wave flattening -Troponinx4 negative -Echo showed mild concentric left ventricular hypertrophy. Left ventricular wall motion is normal. Ejection fraction 50 to 65%. -Dobutamine stress echo done and was negative for ischemia Elevated d-dimer -complaints of right lower extremity pain initially, Doppler of LE showed no evidence of DVT in right or left lower extremity (2) Atrial fibrillation and flutter: -rate control with Metoprolol and digoxin -on systemic anticoagulation (3) Transaminitis: -Liver enzymes on admission with AST 135 and ALT 172 -elevated liver function enzymes related to gallbladder pathology (4) Cholecystitis: -MRCP showed cholelithiasis with findings that are highly concerning for acute cholecystitis. There is no intra or extrahepatic biliary ductal dilatation. No choledocholithiasis is seen. -S/P Laparoscopic Cholecystectomy on 06/07/2020 -currently on ciprofloxacin IV BID -had been advanced from clear liquid diet to full liquid diet currently -trend the WBC (5) CKD (chronic kidney disease), stage III: -monitor the renal function Diabetes mellitus Type 2 versus Pre-diabetes -Not on any DM medications -HbA1c 6.1 Hypothyroidism -home levothyroxine is 125 mcg daily -TSH level elevated more than 14, with normal free T4, possible sick euthyroid syndrome -continue with current dose of levothyroxine 125 mcg daily; patient will need repeat thyroid function tests as outpatient with primary care doctor Obstructive Sleep Apnea -intolerant of CPAP DVT prophylaxis : IV heparin drip Continue oral coumadin, goal INR is 2 to 3 when on coumadin alone Full Code Admission and Anticipated Discharge Date Admission Date: June 06, 2020 Subjective Patient denies vomiting. able to tolerate the diet. no chest pain. no shortness of breath. on room air. no dizziness. no headache. on IV heparin drip Review of Systems Review of Systems: All systems reviewed & are unremarkable except as noted in Subjective Physical Exam Constitutional: comfortable Eyes: PERRL, conjunctivae normal, anicteric sclerae EOM intact bilaterally ENMT: external ear and nose normal, oropharynx normal Neck: normal visual inspection Respiratory: normal respiratory effort, lungs clear to auscultation Cardiovascular: Rate/Rhythm: + irregularly irregular Gastrointestinal (Abdomen): Percussion/Palpation: abdomen soft dressing over surgical incisions Musculoskeletal: Head/Neck/Chest: normocephalic and head atraumatic Neurologic: PERRL, EOMI, accommodation nl, no face palsy, no dysarthria CN's II-XI intact bilaterally Psychiatric: A+Ox3, euthymic affect Results & Data Results & Data ([facility]) Vital Signs (Past 12 Hours) Vital Signs Temp Pulse Pulse Resp BP BP Pulse Ox 06/07/20 16:03 36.6 C 69 18 113/72 93 06/07/20 11:46 36.6 C 86 20 112/69 96 06/07/20 08:29 87 06/07/20 07:47 36.5 C 87 20 135/73 90 (1) CKD (chronic kidney disease), stage III Chronic kidney disease stage 3 subtype: stage 3b (GFR 30-44) Qualified Code(s): N18.32 - Chronic kidney disease, stage 3b
[2020-06-07] MEDS: MONTELUKAST SODIUM 10 MG TABLET PO SCH (20:07)
[2020-06-08] MEDS: LEVOTHYROXINE SODIUM 125 MCG TABLET PO SCH (06:14)
[2020-06-08 06:25] LABS: Basophils # (auto) 0.01 K/uL (0-0.2); Basophils % (auto) 0.1 %; Eosinophils # (auto) 0.69 K/uL (0-0.5); Eosinophils % (auto) 8.3 %; Hematocrit (blood only) 33.8 % (37-47); Hemoglobin 10.6 g/dL (12.0-16.0); Immature Granulocytes # (auto) 0.03 K/uL (0.00-0.02); Immature Granulocytes % (auto) 0.4 %; Lymphocytes # (auto) 1.31 K/uL (1.2-3.4); Lymphocytes % (auto) 15.7 %; Mean Corpuscular Hemoglobin 28.6 pg (25-34); Mean Corpuscular Hgb Conc 31.4 g/dL (32-36); Mean Corpuscular Volume 91.1 fL (80-100); Mean Platelet Volume 10.9 fL (7.4-10.4); Monocytes # (auto) 1.29 K/uL (0.11-0.59); Monocytes % (auto) 15.5 %; Platelet Count 196 K/uL (130-400); RDW Coefficient of Variation 15.5 % (11.5-14.5); RDW Standard Deviation 51.7 fL (36.4-46.3); Red Blood Count 3.71 M/uL (4.2-5.4); White Blood Count 8.33 K/uL (4.8-10.8)
[2020-06-08 06:44] LABS: INR 1.4 (0.9-1.1); Partial Thromboplastin Ratio 2.2; Prothrombin Time 14.6 Seconds (9.0-12.0)
[2020-06-08 06:47] LABS: Partial Thromboplastin Time 60.3 Seconds (21.0-31.0)
[2020-06-08 07:18] LABS: Albumin Level 2.7 gm/dl (3.4-5.0); BUN Creatinine Ratio 11.2 (10-20); Calcium 9.3 mg/dl (8.5-10.1); Creatinine Clr Calc Pharmacy 35.3 ml/min; Est GFR (African American) 49.3; Est GFR (Non-African American) 42.5; Potassium 3.7 mmol/L (3.5-5.1)
[2020-06-08 07:21] LABS: Albumin Globulin Ratio 0.8 (0.9-2); Bilirubin,Total 0.4 mg/dl (0.2-1); Globulin 3.3 gm/dl (2.5-4.0)
[2020-06-08] MEDS: HEPARIN SODIUM/DEXTROSE 25,000 UNITS/500 ML BAG IV SCH (07:47)
[2020-06-08] MEDS: CIPROFLOXACIN / D5W 400 MG/200 ML BAG IV SCH (07:48)
[2020-06-08] MEDS: VENLAFAXINE HCL XR 150 MG CAPXR PO SCH (07:49)
[2020-06-08] MEDS: FOLIC ACID 1 MG TAB PO SCH (07:49)
[2020-06-08] MEDS: INSULIN ASPART 100 UNITS/ML 3 ML PEN SC SCH ×2 (07:49→12:33)
[2020-06-08] MEDS: FERROUS SULFATE 325 MG TAB PO SCH (07:49)
[2020-06-08] MEDS: FLUTICASONE FUROATE 100MCG 14 PUFFS/INHALER INH SCH (07:49)
[2020-06-08] MEDS: UMECLIDINIUM/VILANTEROL 62.5/25MCG 7 PUFFS/INHALER INH SCH (07:49)
[2020-06-08] MEDS: PANTOprazole 40 MG TAB PO SCH (07:50)
[2020-06-08] MEDS: METOPROLOL SUCC 50MG EXT REL TAB PO SCH (07:50)
[2020-06-08] MEDS: TOPIRAMATE 25 MG TAB PO SCH (07:50)
[2020-06-08] MEDS: ASPIRIN 81 MG ECTAB PO SCH (07:50)
--- NOTE | 2020-06-08 11:12 | Surgery Progress Note ---
Date of Service doing fine, tolerated diet, no nausea, no vomiting, no fever, June 08, 2020 Assessment & Plan (1) Cholecystitis: POD#1 lap wendi advance diet ambulate good progress 09/08/2019 11:09AM, doing fine, pt can be discharged today, she can take a shower on 06/10/2020, cipro 500mg po bid x 5 days, F/U me 2 weeks, , pt agrees with the discharge, sign off today, please lenin with questions thanks, Admission and Anticipated Discharge Date Admission Date: June 06, 2020 Subjective doing well pain controlled taking clears Physical Exam Constitutional: WD/WN, vitals as above well developed and well nourished Eyes: PERRL, conjunctivae normal, anicteric sclerae ENMT: external ear and nose normal, oropharynx normal Neck: trachea midline, no thyromegaly Respiratory: normal respiratory effort, lungs clear to auscultation Cardiovascular: Heart Sounds: normal S1 and normal S2 Gastrointestinal (Abdomen): normal bowel sounds, soft, nontender, no hepatosplenomegaly all incisions intact, no redness, Musculoskeletal: no cyanosis or clubbing, extremities motor strength 5/5 Skin: no rashes, warm and dry Neurologic: patellar DTR's 2+ bilat, sensation intact Psychiatric: Orientation: alert and oriented x 3 Results & Data ([facility]) Vital Signs (Past 12 Hours) Vital Signs Temp Pulse Resp BP Pulse Ox 06/08/20 07:58 36.3 C L 65 18 117/71 93 06/08/20 04:08 36.3 C L 75 18 123/71 93 Laboratory Results Abnormal lab results 06/07/20 06/08/20 06/08/20 Range/Units 20:30 05:14 05:14 RBC 3.71 L (4.2-5.4) M/uL Hgb 10.6 L (12.0-16.0) g/dL Hct 33.8 L (37-47) % MCHC 31.4 L (32-36) g/dL RDW Std Deviation 51.7 H (36.4-46.3) fL RDW Coeff of Francisco Javier 15.5 H (11.5-14.5) % MPV 10.9 H (7.4-10.4) fL [facility] # (Auto) 1.29 H (0.11-0.59) K/uL Eos # (Auto) 0.69 H (0-0.5) K/uL Immature Gran # (Auto) 0.03 H (0.00-0.02) K/uL PT 14.6 H (9.0-12.0) Seconds INR 1.4 H (0.9-1.1) APTT 60.3 H* (21.0-31.0) Seconds Chloride (98-107) mmol/L Creatinine (0.6-1.2) mg/dl POC Glucose 101 H (70-99) mg/dl AST (15-37) U/L ALT (12-78) U/L Alkaline Phosphatase (45-117) U/L Total Protein (6.4-8.2) gm/dl Albumin (3.4-5.0) gm/dl Albumin/Globulin Ratio (0.9-2) 06/08/20 Range/Units 05:14 RBC (4.2-5.4) M/uL Hgb (12.0-16.0) g/dL Hct (37-47) % MCHC (32-36) g/dL RDW Std Deviation (36.4-46.3) fL RDW Coeff of Francisco Javier (11.5-14.5) % MPV (7.4-10.4) fL [facility] # (Auto) (0.11-0.59) K/uL Eos # (Auto) (0-0.5) K/uL Immature Gran # (Auto) (0.00-0.02) K/uL PT (9.0-12.0) Seconds INR (0.9-1.1) APTT (21.0-31.0) Seconds Chloride 109 H (98-107) mmol/L Creatinine 1.21 H (0.6-1.2) mg/dl POC Glucose (70-99) mg/dl AST 47 H (15-37) U/L ALT 145 H (12-78) U/L Alkaline Phosphatase 169 H (45-117) U/L Total Protein 6.0 L (6.4-8.2) gm/dl Albumin 2.7 L (3.4-5.0) gm/dl Albumin/Globulin Ratio 0.8 L (0.9-2)
[2020-06-08] MEDS ORDERED: WARFARIN SOD 5 MG TAB PO ONE (12:00)
--- NOTE | 2020-06-08 12:20 | Hospitalist Progress Note ---
Date of Service June 08, 2020 Assessment & Plan (1) Chest pain at rest: -Presented with substernal chest heaviness/chest discomfort -CXR on admission showed no acute cardiopulmonary findings. EKG showed Afib with diffuse nonspecific T wave flattening -Troponinx4 negative -Echo showed mild concentric left ventricular hypertrophy. Left ventricular wall motion is normal. Ejection fraction 50 to 65%. -Dobutamine stress echo done and was negative for ischemia Elevated d-dimer -complaints of right lower extremity pain initially, Doppler of LE showed no evidence of DVT in right or left lower extremity (2) Atrial fibrillation and flutter: -rate control with Metoprolol and digoxin -had been on systemic anticoagulation of IV heparin and warfarin while in the hospital. IV heparin stopped on 06/08/2020 as patient surgically ready for hospital discharge INR is 1.4 on 06/08/2020. as per cardiology Dr. Snowden, patient can be discharged after getting warfarin 5 mg x 1 while in the hospital and then patient should take 5 mg warfarin on 06/09/2020. Patient can then resume home dose warfarin as per home medication schedule and obtain repeat INR levels with coumadin clinic and with primary care doctor patient's discharge medications sent to [facility] pharmacy of [address] [place] [address] (3) Transaminitis: -Liver enzymes on admission with AST 135 and ALT 172 -elevated liver function enzymes on this admission related to gallbladder pathology which has been surgically and medically treated (4) Cholecystitis: Acute Cholecystitis and status post Laparoscopic cholecystectomy on 06/06/2020 -MRCP showed cholelithiasis with findings that are highly concerning for acute cholecystitis. There is no intra or extrahepatic biliary ductal dilatation. No choledocholithiasis is seen. -S/P Laparoscopic Cholecystectomy on 06/06/2020 -has been on ciprofloxacin IV BID while in the hospital -diet advanced discharge to home [facility] clinic appointment line [phone] was called to ensure that patient has follow up appointment with General surgery Dr. Jones, coumadin clinic also being notified of patient's discharge as per Dr. Jones: patient can take a shower on 06/10/2020, ciprofloxacin 500mg po BID for 5 days and patient should follow up in clinic in 2 weeks. Patient can call [phone] to confirm scheduling appointment time and date. -home levothyroxine is 125 mcg daily -TSH level elevated more than 14, with normal free T4, possible sick euthyroid syndrome -continue with current dose of levothyroxine 125 mcg daily; patient will need repeat thyroid function tests as outpatient with primary care doctor other scheduled follow ups 06/14/2020 12:00 PM Provider Sidney Mendiola MD Department General Internal Medicine [facility] 07/13/2020 Time: 11:45 AM Location: ENDOSCOPY [facility], Priscilla Jamil DO Procedure: COLONOSCOPY FLEXIBLE PROXIMAL DIAGNOSTIC 07/26/2020 3:30 PM Provider Stephen Hewitt DO Department Cardiology, [facility] 08/16/2020 11:00 AM Provider [facility] Department Cardiology, [facility] (5) CKD (chronic kidney disease), stage III: -renal function stable Diabetes mellitus Type 2 versus Pre-diabetes -Not on any DM medications -HbA1c 6.1 -follow up with primary care doctor Hypothyroidism -home levothyroxine is 125 mcg daily -TSH level elevated more than 14, with normal free T4, possible sick euthyroid syndrome -continue with current dose of levothyroxine 125 mcg daily; patient will need repeat thyroid function tests as outpatient with primary care doctor Obstructive Sleep Apnea -intolerant of CPAP Admission and Anticipated Discharge Date Admission Date: June 06, 2020 Subjective no fevers, no headache, no dizziness. no abdominal pain. no chest pain. discharge plans and instructions discussed at length Review of Systems Review of Systems: All systems reviewed & are unremarkable except as noted in Subjective Physical Exam Constitutional: comfortable Eyes: PERRL, conjunctivae normal, anicteric sclerae EOM intact bilaterally ENMT: external ear and nose normal, oropharynx normal Neck: normal visual inspection Respiratory: normal respiratory effort, lungs clear to auscultation Cardiovascular: Rate/Rhythm: + irregularly irregular Gastrointestinal (Abdomen): Percussion/Palpation: abdomen soft Musculoskeletal: Head/Neck/Chest: normocephalic and head atraumatic Neurologic: PERRL, EOMI, accommodation nl, no face palsy, no dysarthria CN's II-XI intact bilaterally Psychiatric: A+Ox3, euthymic affect Results & Data Results & Data ([facility]) Vital Signs (Past 12 Hours) Vital Signs Temp Pulse Resp BP BP Pulse Ox 06/08/20 12:12 36.4 C L 66 18 108/69 106/59 L 94 06/08/20 11:25 36.4 C L 66 18 108/69 94 06/08/20 07:58 36.3 C L 65 18 117/71 93 06/08/20 04:08 36.3 C L 75 18 123/71 93 (1) CKD (chronic kidney disease), stage III Chronic kidney disease stage 3 subtype: stage 3b (GFR 30-44) Qualified Code(s): N18.32 - Chronic kidney disease, stage 3b
--- NOTE | 2020-06-08 12:34 | Discharge Summary ---
Date of Service June 08, 2020 Admission HPI Per Admitting Provider This is-A 79 year -old female past medical history of chronic A. fib, COPD, CKD stage III, hypertension, obstructive sleep apnea intolerant of CPAP Came to the ER with complaint of substernal chest pain started since yesterday afternoon. Patient was sitting when she started to experience chest tightness, worse with taking deep breath. No improvement with taking rest Throughout the night patient continued to feel chest discomfort, shortness of breath, had episode of sweating, In the morning, her symptoms continued to get worse, having shortness of breath, worsening of chest tightness with minimal activity. No cough, no fever or chills She denies of any feeling of palpitation, felt dizzy and lightheaded, EMS was called In route to the hospital, patient was given sublingual nitro, aspirin, which helped improvement of symptom In my time of interview, patient was symptom-free Patient reports of having pain on her right leg/feels like a sharp knot -day before yesterday, pain lasted for 1 day does not have any weakness or paresthesia INR 1.7, follows with Coumadin clinic at [place] She reports taking Coumadin as directed Details: BP 1 one 4/75, pulse 84, chronic A. fib, patient is 97% saturation in room air Principal Diagnosis Chest pain at rest Atrial fibrillation and flutter (permanent atrial fibrillation) Transaminitis Acute Cholecystitis and status post Laparoscopic cholecystectomy on 06/06/2020 Diabetes mellitus Type 2 versus Pre-diabetes Discharge Exam Constitutional comfortable Eyes PERRL, conjunctivae normal, anicteric sclerae EOM intact bilaterally ENMT external ear and nose normal, oropharynx normal Neck normal visual inspection Respiratory normal respiratory effort, lungs clear to auscultation Cardiovascular Rate/Rhythm: + irregularly irregular Gastrointestinal (Abdomen) Percussion/Palpation: abdomen soft Musculoskeletal Head/Neck/Chest: normocephalic and head atraumatic Neurologic PERRL, EOMI, accommodation nl, no face palsy, no dysarthria CN's II-XI intact bilaterally Psychiatric A+Ox3, euthymic affect Discharge Data Allergies Allergy/AdvReac Type Severity Reaction Status Date / Time Sulfa (Sulfonamide Allergy Severe Severe Verified 06/03/20 14:52 Antibiotics) rxn: rash and hives celecoxib Allergy Intermediate Rash/Hives/ Verified 06/03/20 14:52 Itching. cephalexin Allergy Intermediate Rash/Hives/ Verified 06/03/20 14:52 Itching. furosemide Allergy Intermediate Rash/Hives/ Verified 06/03/20 14:52 Itching. gabapentin Allergy Intermediate Rash/Hives/ Verified 06/03/20 14:52 Itching. pregabalin Allergy Intermediate Rash/Hives/ Verified 06/03/20 14:52 Itching. meclizine Allergy Unknown Unknown Verified 06/03/20 14:52 methylprednisolone Allergy Unknown Rash/Hives/ Verified 06/03/20 14:52 Itching. Penicillins Allergy Unknown Unknown. Verified 06/03/20 14:52 prednisone Allergy Unknown Rash/Hives/ Verified 06/03/20 14:52 Itching. vancomycin Allergy Unknown Jodi Verified 06/03/20 14:52 syn. . nickel Allergy Unknown Verified 06/05/20 16:21 dexamethasone AdvReac Intermediate Steroid Verified 06/03/20 14:52 psychosis. Consultations 06/03/20 15:16 ED Decision to Admit Stat 06/03/20 15:32 Consult Case Management - Discharge Planning Routine 06/03/20 18:37 Consult Cardiology Routine 06/05/20 10:52 Consult Gastroenterology Routine 06/05/20 15:01 Consult General Surgery Routine Procedures Performed Operation Date: 06/06/20 10:50 Actual Procedures p Laparoscopic Cholecystectomy(Not Applicable) - Armand Jones MD Ordered Studies 06/03/20 16:25 US venous doppler LE BI Urgent 06/05/20 10:52 US liver Routine 06/05/20 11:20 MR MRCP Routine Hospital Course (1) Chest pain at rest: -Presented with substernal chest heaviness/chest discomfort -CXR on admission showed no acute cardiopulmonary findings. EKG showed Afib with diffuse nonspecific T wave flattening -Troponinx4 negative -Echo showed mild concentric left ventricular hypertrophy. Left ventricular wall motion is normal. Ejection fraction 50 to 65%. -Dobutamine stress echo done and was negative for ischemia Elevated d-dimer -complaints of right lower extremity pain initially, Doppler of LE showed no evidence of DVT in right or left lower extremity (2) Atrial fibrillation and flutter: -rate control with Metoprolol and digoxin -had been on systemic anticoagulation of IV heparin and warfarin while in the hospital. IV heparin stopped on 06/08/2020 as patient surgically ready for hospital discharge INR is 1.4 on 06/08/2020. as per cardiology Dr. Snowden, patient can be discharged after getting warfarin 5 mg x 1 while in the hospital and then patient should take 5 mg warfarin on 06/09/2020. Patient can then resume home dose warfarin as per home medication schedule and obtain repeat INR levels with coumadin clinic and with primary care doctor patient's discharge medications sent to [facility] pharmacy of [address] [place] [address], [place] [address] (3) Transaminitis: -Liver enzymes on admission with AST 135 and ALT 172 -elevated liver function enzymes on this admission related to gallbladder pathology which has been surgically and medically treated (4) Cholecystitis: Acute Cholecystitis and status post Laparoscopic cholecystectomy on 06/06/2020 -MRCP showed cholelithiasis with findings that are highly concerning for acute cholecystitis. There is no intra or extrahepatic biliary ductal dilatation. No choledocholithiasis is seen. -S/P Laparoscopic Cholecystectomy on 06/06/2020 -has been on ciprofloxacin IV BID while in the hospital -diet advanced discharge to home [facility] clinic appointment line [phone] was called to ensure that patient has follow up appointment with General surgery Dr. Jones, coumadin clinic also being notified of patient's discharge as per Dr. Jones: patient can take a shower on 06/10/2020, ciprofloxacin 500mg po BID for 5 days and patient should follow up in clinic in 2 weeks. Patient can call [phone] to confirm scheduling appointment time and date. -home levothyroxine is 125 mcg daily -TSH level elevated more than 14, with normal free T4, possible sick euthyroid syndrome -continue with current dose of levothyroxine 125 mcg daily; patient will need repeat thyroid function tests as outpatient with primary care doctor other scheduled follow ups 06/14/2020 12:00 PM Provider Sidney Mendiola MD Department General Internal Medicine [facility] 07/13/2020 Time: 11:45 AM Location: ENDOSCOPY [facility], Priscilla Jamil DO Procedure: COLONOSCOPY FLEXIBLE PROXIMAL DIAGNOSTIC 07/26/2020 3:30 PM Provider Stephen Hewitt DO Department Cardiology, [facility] 08/16/2020 11:00 AM Provider [facility] Department Cardiology, [facility] (5) CKD (chronic kidney disease), stage III: -renal function stable Diabetes mellitus Type 2 versus Pre-diabetes -Not on any DM medications -HbA1c 6.1 -follow up with primary care doctor Hypothyroidism -home levothyroxine is 125 mcg daily -TSH level elevated more than 14, with normal free T4, possible sick euthyroid syndrome -continue with current dose of levothyroxine 125 mcg daily; patient will need repeat thyroid function tests as outpatient with primary care doctor Obstructive Sleep Apnea -intolerant of CPAP Total Time Total Time Spent Total Time Spent (In Minutes): 40 minutes Total Time Includes: Examination of the Patient, Discharge Planning, Medication Reconciliation and Communication With Other Providers Discharge Plan Discharge Items Patient Disposition: Home - Self-Care Reason For Visit: CHEST PAIN Discharge Diagnosis: Chest pain at rest Atrial fibrillation and flutter (permanent atrial fibrillation) Transaminitis Acute Cholecystitis and status post Laparoscopic cholecystectomy on 06/06/2020 Diabetes mellitus Type 2 versus Pre-diabetes Condition on Discharge: Good Activity: Per Instructions section Non-emergency contact: Primary Care Provider Call non-emergency contact if: you have any medication questions Follow-up/Referrals: Florentin Calvo DO [Primary Care Provider] - (Date & Time 06/14/2020 12:00 PM Provider Sidney Mendiola MD Department General Internal Medicine [facility] ) Diet: Carb Consistent or DM2 Addtl Attending Provider Instructions: [facility] [phone] was called to ensure that patient has follow up appointment with General surgery Dr. Jones, coumadin clinic also being notified of patient's discharge as per Dr. Jones: patient can take a shower on 06/10/2020, ciprofloxacin 500mg po BID for 5 days and patient should follow up in clinic in 2 weeks. Patient can call [phone] to confirm scheduling appointment time and date. -home levothyroxine is 125 mcg daily -TSH level elevated more than 14, with normal free T4, possible sick euthyroid syndrome -continue with current dose of levothyroxine 125 mcg daily; patient will need repeat thyroid function tests as outpatient with primary care doctor Diabetes mellitus Type 2 versus Pre-diabetes -Not on any DM medications -HbA1c 6.1 -follow up with primary care doctor other scheduled follow ups 06/14/2020 12:00 PM Provider Sidney Mendiola MD Department General Internal Medicine [facility] 07/13/2020 Time: 11:45 AM Location: ENDOSCOPY [facility], Priscilla Jamil DO Proc edure: COLONOSCOPY FLEXIBLE PROXIMAL DIAGNOSTIC 07/26/2020 3:30 PM Provider Stephen Hewitt DO Department Cardiology, [facility] 08/16/2020 11:00 AM Provider [facility] Department Cardiology, [facility] Add Orchid Superintendent Provider Instructions: INR is 1.4 on 06/08/2020. as per cardiology Dr. Snowden, patient can be discharged after getting warfarin 5 mg x 1 while in the hospital and then patient should take 5 mg warfarin on 06/09/2020. Patient can then resume home dose warfarin as per home medication schedule and obtain repeat INR levels with coumadin clinic and with primary care doctor patient's discharge medications sent to preferred pharmacy of [address] [place] [address], [place] [address] Pending Studies at Discharge: No Stand-Alone Forms: My [facility] [email or web address], Smoking Cessation Medications and DC Order Prescriptions: New Anoro Ellipta 62.5-25 mcg/actuation Blister With Device 1 inh inhalation DAILY 30 Days Qty: 60 RF: 0 ciprofloxacin HCl 500 mg Tablet 500 mg PO BID 5 Days Qty: 10 RF: 0 warfarin 5 mg tablet 5 mg PO ONCE 1 Days Qty: 1 RF: 0 Continued Trelegy Ellipta 100-62.5-25 mcg blister with device 1 puffs INH DAILY Qty: 60 RF: 3 (DME) CPAP Machine Misc See Rx Instructions .ROUTE .MEDSUPPLY Qty: 1 RF: 0 (DME) CPAP Machine Misc See Rx Instructions .MEDSUPPLY Qty: 1 RF: 0 lansoprazole 15 mg capsule,delayed release(DR/EC) 15 mg PO DAILY RF: 0 topiramate 25 mg tablet 25 mg PO BID RF: 0 montelukast 10 mg tablet 10 mg PO DAILY RF: 0 folic acid 1 mg tablet 1 mg PO DAILY RF: 0 alprazolam 0.5 mg tablet 0.5 mg PO QID PRN (Reason: Anxiety) RF: 0 venlafaxine 150 mg capsule,extended release 24hr 150 mg PO DAILY Qty: 30 RF: 0 (DME) CPAP Supplies Misc See Rx Instructions .ROUTE .MEDSUPPLY Qty: 1 RF: 0 levothyroxine 125 mcg capsule 125 mcg PO DAILY RF: 0 metoprolol succinate 50 mg tablet extended release 24 hr 50 mg PO DAILY RF: 0 ferrous sulfate 325 mg (65 mg iron) Tablet 325 mg PO DAILY RF: 0 digoxin 125 mcg (0.125 mg) tablet 125 mcg PO 3XWK RF: 0 ipratropium bromide 0.03 % spray,non-aerosol 2 spray INTRANASAL DAILY PRN (Reason: Sinus Symptoms) RF: 0 Discontinued warfarin 2 mg tablet 2 mg PO 6XWK RF: 0 warfarin 2 mg tablet 3 mg PO WK RF: 0 Discharge Orders: Discharge Order (Routine); Ordered 06/08/20 Ordered By: Mirza Gandhi/Other Patient Handouts: Managing Type 2 Diabetes Admission Data Admit Date/Time: 06/06/20 00:30 Attending Provider: Mirza Ceballos Admit Provider: Keke Bajwa Primary Care Provider: Florentin Calvo Other Providers: Keke Bajwa ; Pritesh Dupont ; Hossein Snowden ; Nish Chavarria ; Isaías Márquez ; Stephen Hewitt ; Doe Calero ; Abigail Goncalves ; Carmenza Swann ; William Simpson ; Harriett Gomez ; Armand Jones
[2020-06-08] MEDS ORDERED: CIPROFLOXACIN 500 MG TAB PO SCH (21:00)
== END 2020-06-08 13:33 | disposition home or self-care (01) | DRG 418 ==
LOC: ED 13:22 → 2N 13:22 → SUATTDRO 15:30 → INTOOBSV 15:30 → 2N 17:07 → SUATTDRO 06-06 00:30 → 2N 06-07 01:31

== ENCOUNTER 2021-11-26 14:28 | Inpatient (IN) ==
--- NOTE | 2021-11-26 15:40 | Emergency Department Note ---
History of Present Illness General Chief complaint: Weakness Stated complaint: weakness Time Seen by Provider: 11/26/21 15:10 Source: patient Mode of arrival: ambulatory Limitations: no limitations History of Present Illness Provider complaint: Headache, weakness Onset (ago): day(s) 1 Location: head Associated symptoms: + cough, + headaches and + loss of appetite; no chest pain, no fever/chills, no nausea/vomiting or no shortness of breath Treatments prior to arrival: none This is an 81-year-old female presents emergency department complaining of weakness and headache that began yesterday. Patient was seen and evaluated at her PCPs office today and they were concerned due to an elevated heart rate. Patient does have a history of atrial fibrillation. She states she does take heart medication and follow with Dr. Hewitt. She states she does take apixaban daily. She denies chest pain or palpitations. Patient states she has had headaches in the past although this 1 seemed more severe and persistent. Patie nt states that headache did improve yesterday with Tylenol. It was present again today however less severe. She states she has had some accompanying neck and upper shoulder pain with it. She denies any sudden severe or thunderclap onset. She denies any coming vision changes. Patient states while she is not been nauseated she has not had an appetite and has had decreased oral intake. Patient states she did feel weak yesterday and today. Patient denies any change in bowel or bladder function, denies paresthesias, denies tinnitus, denies weakness or trouble speaking. Pt seen during a time of high acuity and national emergency pandemic while wearing PPE. Home Medications Medication Instructions Recorded Confirmed Type alprazolam 0.5 mg tablet 0.5 mg PO QID PRN tab 04/08/19 11/26/21 History folic acid 1 mg tablet 1 mg PO DAILY tab 04/08/19 11/26/21 History lansoprazole 15 mg capsule,delayed 15 mg PO DAILY PRN cap 04/08/19 11/26/21 History release montelukast 10 mg tablet 10 mg PO DAILY tab 04/08/19 11/26/21 History venlafaxine 150 mg 150 mg PO DAILY #30 cap 04/08/19 11/26/21 History capsule,extended release 24 hr digoxin 125 mcg (0.125 mg) tablet 125 mcg PO 3XWK 06/03/20 11/26/21 History ferrous sulfate 325 mg (65 mg 325 mg PO DAILY 06/03/20 11/26/21 History iron) tablet ipratropium bromide 21 mcg (0.03 2 spray INTRANASAL DAILY PRN 06/03/20 11/26/21 History %) nasal spray metoprolol succinate 50 mg 50 mg PO DAILY 06/03/20 11/26/21 History tablet,extended release 24 hr allopurinol 100 mg tablet 100 mg PO DAILY 11/26/21 11/26/21 History apixaban 5 mg tablet (Eliquis) 5 mg PO BID 11/26/21 11/26/21 History aspirin 81 mg tablet 81 mg PO DAILY 11/26/21 11/26/21 History atorvastatin 20 mg tablet 20 mg PO DAILY 11/26/21 11/26/21 History cholecalciferol (vitamin D3) 50 150 mcg PO DAILY 11/26/21 11/26/21 History mcg (2,000 unit) capsule (Vitamin D3) colchicine 0.6 mg tablet 0.6 mg PO DAILY 11/26/21 11/26/21 History levothyroxine 137 mcg tablet 137 mcg PO QAM 11/26/21 11/26/21 History semaglutide (Ozempic) 0.25 mg SUBCUT WK 11/26/21 11/26/21 History Allergies Allergy/AdvReac Type Severity Reaction Status Date / Time Sulfa (Sulfonamide Allergy Severe Severe Verified 11/26/21 19:26 Antibiotics) rxn: rash and hives celecoxib Allergy Intermediate Rash/Hives/ Verified 11/26/21 19:26 Itching. cephalexin Allergy Intermediate Rash/Hives/ Verified 11/26/21 19:26 Itching. furosemide Allergy Intermediate Rash/Hives/ Verified 11/26/21 19:26 Itching. gabapentin Allergy Intermediate Rash/Hives/ Verified 11/26/21 19:26 Itching. pregabalin Allergy Intermediate Rash/Hives/ Verified 11/26/21 19:26 Itching. meclizine Allergy Unknown Unknown Verified 11/26/21 19:26 methylprednisolone Allergy Unknown Rash/Hives/ Verified 11/26/21 19:26 Itching. Penicillins Allergy Unknown Unknown. Verified 11/26/21 19:26 prednisone Allergy Unknown Rash/Hives/ Verified 11/26/21 19:26 Itching. vancomycin Allergy Unknown Jodi Verified 11/26/21 19:27 syn. . nickel Allergy Unknown Verified 11/26/21 19:27 dexamethasone AdvReac Intermediate Steroid Verified 11/26/21 19:27 psychosis. Past Med/Surg History Medical History Asthma, moderate persistent Atrial fibrillation and flutter CKD (chronic kidney disease), stage III Depression DM type 2 (diabetes mellitus, type 2) History of tobacco abuse HTN (hypertension) Hypothyroidism Meniere disease RADHA (obstructive sleep apnea) Osteoarthritis of right knee Pulmonary emphysema Surgical History H/O sinus surgery History of cholecystectomy History of hysterectomy History of laminectomy History of repair of left rotator cuff Hx of neck surgery Family History Father Diabetes Social History Smoking Status: Former smoker Tobacco Type: Cigarettes packs per day: 1.5; Years Smoked: 20; Cigarettes Per Day: 30; Second Hand Exposure: No; Hx Alcohol Use: No Hx Substance Use: No Preferred Language: Maori Communication Ability: Effective Operations Intelligence Superintendent Required: No Beliefs That Will Affect Care: None Current Living Situation: Spouse Other Information That Helps Us Care for You: No Feels Safe at Home: Yes Safety Concerns: Feels Safe At This Time Assistive Devices: Cane Review of Systems A total of 10 systems reviewed and were otherwise negative All systems reviewed & are unremarkable except as noted in HPI & below Physical Exam Vital Signs Vital Signs - 24 hr 11/26/21 14:41 11/26/21 16:11 Temperature 36.6 C Temperature Source Oral Pulse Rate 122 H 84 Pulse Rhythm Irregular Pulse Strength Normal Respiratory Rate 18 18 Respiratory Effort / Characteristics Non-Labored Spontaneous Respiratory Depth Normal Blood Pressure 92/65 L 121/58 L Blood Pressure Mean 74 79 Blood Pressure Position Lying Pulse Oximetry 96 96 Oxygen Delivery Method Room Air Room Air Sepsis Recent Fever Within 48 Hours No Sepsis New/Unexplained Change in Mental Status N/A Sepsis Action Taken by Nursing No Action Required GENERAL: alert, well appearing, well nourished, no distress, non-toxic HEAD: nc/at, no palpable mass at temples EYE EXAM: normal conjunctiva, PERRL and EOM's grossly intact, no nystagmus OROPHARYNX: no exudate, no erythema, lips, buccal mucosa, and tongue normal and mucous membranes are moist NECK: supple, no nuchal rigidity, no adenopathy, non-tender, FROM LUNGS: Clear to auscultation. Normal chest wall mechanics, no w/r/r HEART: no murmurs, S1 normal and S2 normal ABDOMEN: abdomen soft, non-tender, normo-active bowel sounds, no masses, no rebound or guarding. BACK: Back is symmetrical on inspection and there is no deformity, no midline tenderness, no CVA tenderness. SKIN: no rashes and no bruising UPPER EXTREMITIES: upper extremities are grossly normal. FROM, nml pulses b/l. LOWER EXTREMITIES: No pitting edema. FROM, nml pulses b/l. NEURO EXAM: Normal sensorium, cranial nerves II-XII grossly intact, normal speech, no gross weakness of arms, no gross weakness of legs. Gross sensation intact. Course Course 1725: Updated patient and son via phone at her request on results and plan. Heart rate is improved after 1 L of IV fluids. 1738: Discussed with Carolina Conner. Administered Medications Allopurinol (Allopurinol 100 Mg Tab) 100 mg PO DAILY [facility] Stop: 12/27/21 08:59 Last Admin: 11/27/21 08:20 Dose: 100 mg Documented by: [id number] Apixaban (Apixaban 5 Mg Tablet) 5 mg PO BID [facility] Stop: 12/26/21 20:59 Last Admin: 11/27/21 08:19 Dose: 5 mg Documented by: [id number] Admin: 11/26/21 21:59 Dose: 5 mg Documented by: [id number] Aspirin (Aspirin 81 Mg Ectab) 81 mg PO DAILY [facility] Stop: 12/27/21 08:59 Last Admin: 11/27/21 08:19 Dose: 81 mg Documented by: [id number] Atorvastatin Calcium (Atorvastatin 20 Mg Tab) 20 mg PO DAILY [facility] Stop: 12/27/21 08:59 Last Admin: 11/27/21 08:20 Dose: 20 mg Documented by: [id number] Colchicine (Colchicine 0.6 Mg Tab) 0.6 mg PO DAILY [facility] Stop: 12/27/21 08:59 Last Admin: 11/27/21 08:20 Dose: 0.6 mg Documented by: [id number] Ferrous Sulfate (Ferrous Sulfate 325 Mg Tab) 325 mg PO DAILY [facility] Stop: 12/27/21 08:59 Last Admin: 11/27/21 08:20 Dose: 325 mg Documented by: [id number] Folic Acid (Folic Acid 1 Mg Tab) 1 mg PO DAILY [facility] Stop: 12/27/21 08:59 Last Admin: 11/27/21 08:20 Dose: 1 mg Documented by: [id number] Sodium Chloride (Nss 1000ml) 1,000 mls @ 80 mls/hr IV .[id number] [facility] Stop: 12/26/21 20:54 Last Admin: 11/27/21 10:35 Dose: 80 mls/hr Documented by: [id number] Infusion: 11/27/21 10:09 Dose: 0 mls/hr Documented by: [id number] Admin: 11/26/21 21:20 Dose: 80 mls/hr Documented by: [id number] Doxycycline Hyclate 100 mg/ (Dextrose) 110 mls @ 50 mls/hr IV Q12H [facility] Stop: 12/03/21 21:59 Last Infusion: 11/27/21 12:42 Dose: 0 mls/hr Documented by: [id number] Admin: 11/27/21 10:35 Dose: 50 mls/hr Documented by: [id number] Infusion: 11/27/21 00:18 Dose: 0 mls/hr Documented by: [id number] Admin: 11/26/21 22:01 Dose: 50 mls/hr Documented by: [id number] Insulin Aspart (Insulin Aspart Per Unit) 0 units SC ACHS [facility] Stop: 12/26/21 20:59 Last Admin: 11/27/21 12:15 Dose: 3 units Documented by: [id number] Cosigned by: [id number] Admin: 11/27/21 07:53 Dose: 3 units Documented by: [id number] Cosigned by: [id number] Admin: 11/26/21 21:22 Dose: Not Given Documented by: [id number] Levothyroxine Sodium (Levothyroxine Sodium 137 Mcg Tablet) 137 mcg PO DAILYBB [facility] Stop: 12/27/21 06:29 Last Admin: 11/27/21 07:39 Dose: 137 mcg Documented by: [id number] Metoprolol Succinate (Metoprolol Succ 50mg Ext Rel Tab) 50 mg PO DAILY [facility] Stop: 12/27/21 08:59 Last Admin: 11/27/21 08:20 Dose: 50 mg Documented by: [id number] Montelukast Sodium (Montelukast Sodium 10 Mg Tablet) 10 mg PO DAILY [facility] Stop: 12/27/21 08:59 Last Admin: 11/27/21 08:20 Dose: 10 mg Documented by: [id number] Discontinued Medications Azithromycin (Azithromycin 250 Mg Tab) 500 mg PO NOW ONE Stop: 11/26/21 17:38 Last Admin: 11/26/21 18:45 Dose: 500 mg Documented by: [id number] Acetaminophen (Ofirmev) 1,000 mg in 100 mls @ 400 mls/hr IV NOW STA Stop: 11/26/21 17:32 Last Infusion: 11/26/21 18:54 Dose: 0 mls/hr Documented by: [id number] Admin: 11/26/21 18:45 Dose: 400 mls/hr Documented by: [id number] Ceftriaxone Sodium (Rocephin) 1,000 mg in 50 mls @ 100 mls/hr IV NOW STA Stop: 11/26/21 18:06 Last Infusion: 11/26/21 19:19 Dose: 0 mls/hr Documented by: [id number] Admin: 11/26/21 18:45 Dose: 100 mls/hr Documented by: [id number] Sodium Chloride (Nss 1000ml) 1,000 mls @ 125 mls/hr IV .Q8H [facility] Stop: 12/26/21 17:44 Last Infusion: 11/26/21 20:57 Dose: 0 mls/hr Documented by: [id number] Admin: 11/26/21 18:46 Dose: 125 mls/hr Documented by: [id number] Ioversol (Optiray 320 125ml) 120 ml IV ONCE ONE Stop: 11/26/21 16:52 Last Admin: 11/26/21 16:51 Dose: 120 ml Documented by: [id number] Medical Decision Making Differential Diagnosis Differential Diagnosis includes but is not limited to headache, tension headache, cluster headache, migraine, subarachnoid hemorrhage, meningitis, mass, central venous thrombus, concussion, trauma and epidural/subdural hemorrhage. Medical Records Attestation: I reviewed the patient's medical records. Home Medications Current Medication List: was personally reviewed by me Laboratory Data Attestation: I reviewed the patient's lab results. Result diagrams: 11/27/21 03:20 11/27/21 03:20 Lab Results 11/26/21 11/26/21 11/26/21 Range/Units 14:54 14:54 14:54 WBC 17.54 H (4.8-10.8) K/uL RBC 4.47 (4.2-5.4) M/uL Hgb 13.3 (12.0-16.0) g/dL Hct 40.2 (37-47) % MCV 89.9 (80-100) fL MCH 29.8 (25-34) pg MCHC 33.1 (32-36) g/dL RDW Std Deviation 47.7 H (36.4-46.3) fL RDW Coeff of Francisco Javier 14.5 (11.5-14.5) % Plt Count 220 (130-400) K/uL MPV 11.6 H (7.4-10.4) fL Immature Gran % (Auto) 0.5 % Neut % (Auto) 81.4 % Lymph % (Auto) 7.0 % [place] % (Auto) 9.4 % Eos % (Auto) 1.5 % Baso % (Auto) 0.2 % Neut # (Auto) 14.29 H (1.4-6.5) K/uL Lymph # (Auto) 1.23 (1.2-3.4) K/uL [place] # (Auto) 1.64 H (0.11-0.59) K/uL Eos # (Auto) 0.27 (0-0.5) K/uL Baso # (Auto) 0.03 (0-0.2) K/uL Immature Gran # (Auto) 0.08 H (0.00-0.02) K/uL Sodium 133 L (136-145) mmol/L Potassium 4.6 (3.5-5.1) mmol/L Chloride 99 (98-107) mmol/L Carbon Dioxide 26 (21-32) mmol/L Anion Gap 8 (3-11) BUN 26 H (6-23) mg/dl Creatinine 1.38 H (0.6-1.2) mg/dl Est Cr Clr Drug Dosing 28.8 ml/min Est GFR ( Amer) 41.5 ml/min Est GFR (Non-Af Amer) 35.8 ml/min BUN/Creatinine Ratio 18.8 (10-20) Glucose 195 H (70-99(Fasting)) mg/dl Calcium 9.6 (8.5-10.1) mg/dl Magnesium 1.8 (1.7-2.4) mg/dl Total Bilirubin 0.7 (0.2-1.0) mg/dl AST 40 H (13-39) U/L ALT 43 (7-52) U/L Alkaline Phosphatase 193 H (34-104) U/L Troponin I 0.07 H* (0-0.04) ng/ml B-Natriuretic Peptide (0-100) pg/ml Total Protein 7.0 (6.0-8.3) gm/dl Albumin 4.1 (3.4-5.0) gm/dl Globulin 2.9 (2.5-4.0) gm/dl Albumin/Globulin Ratio 1.4 (0.9-2) TSH 2.887 (0.300-4.500) uIu/ml 11/26/21 Range/Units 16:30 WBC (4.8-10.8) K/uL RBC (4.2-5.4) M/uL Hgb (12.0-16.0) g/dL Hct (37-47) % MCV (80-100) fL MCH (25-34) pg MCHC (32-36) g/dL RDW Std Deviation (36.4-46.3) fL RDW Coeff of Francisco Javier (11.5-14.5) % Plt Count (130-400) K/uL MPV (7.4-10.4) fL Immature Gran % (Auto) % Neut % (Auto) % Lymph % (Auto) % [place] % (Auto) % Eos % (Auto) % Baso % (Auto) % Neut # (Auto) (1.4-6.5) K/uL Lymph # (Auto) (1.2-3.4) K/uL [place] # (Auto) (0.11-0.59) K/uL Eos # (Auto) (0-0.5) K/uL Baso # (Auto) (0-0.2) K/uL Immature Gran # (Auto) (0.00-0.02) K/uL Sodium (136-145) mmol/L Potassium (3.5-5.1) mmol/L Chloride (98-107) mmol/L Carbon Dioxide (21-32) mmol/L Anion Gap (3-11) BUN (6-23) mg/dl Creatinine (0.6-1.2) mg/dl Est Cr Clr Drug Dosing ml/min Est GFR ( Amer) ml/min Est GFR (Non-Af Amer) ml/min BUN/Creatinine Ratio (10-20) Glucose (70-99(Fasting)) mg/dl Calcium (8.5-10.1) mg/dl Magnesium (1.7-2.4) mg/dl Total Bilirubin (0.2-1.0) mg/dl AST (13-39) U/L ALT (7-52) U/L Alkaline Phosphatase (34-104) U/L Troponin I (0-0.04) ng/ml B-Natriuretic Peptide 256 H (0-100) pg/ml Total Protein (6.0-8.3) gm/dl Albumin (3.4-5.0) gm/dl Globulin (2.5-4.0) gm/dl Albumin/Globulin Ratio (0.9-2) TSH (0.300-4.500) uIu/ml Imaging Data Radiologist's Impression: Chest X-Ray 11/26/21 15:37 XR chest 1V portable CLINICAL HISTORY: Cough. COMPARISON STUDY: Chest radiograph July 29, 2021. FINDINGS: Lung volumes are normal. Lungs are clear. There is no pneumothorax or pleural effusion. Cardiac size is stable. Mediastinal contours are normal. There is no evidence for pulmonary edema. Postoperative finding within the cervical spine are incidentally noted. IMPRESSION: No acute cardiopulmonary findings. ACT 112: Negative or not required by law. Electronically signed by: Otoniel Lemus M.D. 11/26/2021 4:[address] 11/26/21 15:[address] OF THE BRAIN; CT ANGIOGRAM OF THE BRAIN; CT ANGIOGRAM OF THE NECK CLINICAL HISTORY: Atypical headache. COMPARISON STUDY: CT of the brain dated 01/14/2018. MR angiogram of the brain dated 03/19/2013. Carotid artery ultrasound dated 03/19/2013. TECHNIQUE: Unenhanced axial CT scan of the brain is performed. Subsequently, following the IV administration of 120 of Optiray 320, CT angiogram of the head and neck was performed from the aortic arch to the vertex. Images are reviewed in the axial, sagittal, and coronal planes. 3-D MIPS images are created and assessed. IV contrast was administered without complication. All measurements were calculated based on NASCET criteria. A dose lowering technique was utilized adhering to the principles of ALARA. The neck angiogram is degraded by streak artifact from extensive metallic spinal hardware. CT DOSE: 1010.80 mGy.cm FINDINGS: Brain parenchyma: There is age-related involutional change noting mild subcortical and periventricular microangiopathic disease. There is no hemorrhage, mass effect, or evidence of acute territorial ischemia by CT criteria. There is no evidence of enhancing mass lesion on the angiogram phase images. The ventricles, sulci, and cisterns are prominent secondary to involutional change. Rosario-white matter differentiation is preserved. No extra- axial fluid collection is seen. Thoracic aorta: There is atherosclerotic calcification of the thoracic aorta. Visualized portions of the thoracic aorta are normal in caliber. The aortic arch demonstrates standard 3-vessel anatomy. Right carotid arterial system: The right common carotid artery is widely patent, as are the right internal and external carotid arteries. Left carotid arterial system: The left common carotid artery is widely patent, as are the left internal and external carotid arteries. Mild calcified plaque is noted in the carotid bulb. Vertebral arteries: The vertebral arteries are widely patent bilaterally and codominant. Subclavian arteries: Widely patent bilaterally. Intracranial vasculature: There is atherosclerotic calcification of the cavernous carotid and vertebral arteries. The internal carotid arteries are patent at the skull base, as are the anterior and middle cerebral arteries bilaterally. The vertebrobasilar system and posterior cerebral arteries are widely patent. The vertebral arteries are codominant. 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 No additional aneurysm is identified. No high-grade stenosis or focal vessel cough is seen throughout the intracranial circulation. Jugular veins: Patent bilaterally. Dural sinuses: Patent. Lung apices: Emphysematous change is noted in the upper lobes. An indeterminant 1.1 cm patchy opacity is partially visualized in the right upper lobe on image #1. Soft tissues: The visualized pharyngeal soft tissues are normal in appearance noting angiographic phase technique. The oropharyngeal airway appears widely patent. The thyroid gland is enlarged and heterogeneous. The salivary glands are normal in appearance. No cervical lymphadenopathy is seen. Skeletal structures: The skeletal structures are osteopenic. The calvarium appears intact. There is advanced multilevel cervical spondylosis with extensive postoperative change. No lytic or blastic lesion is seen. Orbits: The bony orbits are intact. Orbital contents are normal as visualized noting bilateral ocular lens implants. Sinuses and mastoids: Findings suggest previous paranasal sinus surgery. The paranasal sinuses are clear. The mastoid air cells are well pneumatized. IMPRESSION: 1. There is no hemorrhage, mass effect, or evidence of acute territorial ischemia by CT criteria. 2. 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 3. Otherwise unremarkable CT angiogram of the brain. 4. Unremarkable CT angiogram of the neck. 5. Emphysema. 6. There is a 1.1 cm patchy airspace opacity partially visualized in the right upper lobe. This could be on an infectious/inflammatory basis and clinical correlation will be required. A follow-up chest CT is recommended in 3 months time for reassessment and to exclude the possibility of underlying pulmonary lesion. ACT 112: Positive. There are findings on this exam that require communication between the performing entity and the patient following Patient Test Result Information Act ([place] Act 112) guidelines. Electronically signed by: Jay Sandoval M.D. 11/26/2021 5:09 PM Head CTA 11/26/21 15:[address] OF THE BRAIN; CT ANGIOGRAM OF THE BRAIN; CT ANGIOGRAM OF THE NECK CLINICAL HISTORY: Atypical headache. COMPARISON STUDY: CT of the brain dated 01/14/2018. MR angiogram of the brain dated 03/19/2013. Carotid artery ultrasound dated 03/19/2013. TECHNIQUE: Unenhanced axial CT scan of the brain is performed. Subsequently, following the IV administration of 120 of Optiray 320, CT angiogram of the head and neck was performed from the aortic arch to the vertex. Images are reviewed in the axial, sagittal, and coronal planes. 3-D MIPS images are created and assessed. IV contrast was administered without complication. All measurements were calculated based on NASCET criteria. A dose lowering technique was utilized adhering to the principles of ALARA. The neck angiogram is degraded by streak artifact from extensive metallic spinal hardware. CT DOSE: 1010.80 mGy.cm FINDINGS: Brain parenchyma: There is age-related involutional change noting mild subcortical and periventricular microangiopathic disease. There is no hemorrhage, mass effect, or evidence of acute territorial ischemia by CT criteria. There is no evidence of enhancing mass lesion on the angiogram phase images. The ventricles, sulci, and cisterns are prominent secondary to involutional change. Rosario-white matter differentiation is preserved. No extra- axial fluid collection is seen. Thoracic aorta: There is atherosclerotic calcification of the thoracic aorta. Visualized portions of the thoracic aorta are normal in caliber. The aortic arch demonstrates standard 3-vessel anatomy. Right carotid arterial system: The right common carotid artery is widely patent, as are the right internal and external carotid arteries. Left carotid arterial system: The left common carotid artery is widely patent, as are the left internal and external carotid arteries. Mild calcified plaque is noted in the carotid bulb. Vertebral arteries: The vertebral arteries are widely patent bilaterally and codominant. Subclavian arteries: Widely patent bilaterally. Intracranial vasculature: There is atherosclerotic calcification of the cavernous carotid and vertebral arteries. The internal carotid arteries are patent at the skull base, as are the anterior and middle cerebral arteries bilaterally. The vertebrobasilar system and posterior cerebral arteries are widely patent. The vertebral arteries are codominant. 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 No additional aneurysm is identified. No high-grade stenosis or focal vessel cough is seen throughout the intracranial circulation. Jugular veins: Patent bilaterally. Dural sinuses: Patent. Lung apices: Emphysematous change is noted in the upper lobes. An indeterminant 1.1 cm patchy opacity is partially visualized in the right upper lobe on image #1. Soft tissues: The visualized pharyngeal soft tissues are normal in appearance noting angiographic phase technique. The oropharyngeal airway appears widely p atent. The thyroid gland is enlarged and heterogeneous. The salivary glands are normal in appearance. No cervical lymphadenopathy is seen. Skeletal structures: The skeletal structures are osteopenic. The calvarium appears intact. There is advanced multilevel cervical spondylosis with extensive postoperative change. No lytic or blastic lesion is seen. Orbits: The bony orbits are intact. Orbital contents are normal as visualized noting bilateral ocular lens implants. Sinuses and mastoids: Findings suggest previous paranasal sinus surgery. The paranasal sinuses are clear. The mastoid air cells are well pneumatized. IMPRESSION: 1. There is no hemorrhage, mass effect, or evidence of acute territorial ischemia by CT criteria. 2. 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 3. Otherwise unremarkable CT angiogram of the brain. 4. Unremarkable CT angiogram of the neck. 5. Emphysema. 6. There is a 1.1 cm patchy airspace opacity partially visualized in the right upper lobe. This could be on an infectious/inflammatory basis and clinical correlation will be required. A follow-up chest CT is recommended in 3 months time for reassessment and to exclude the possibility of underlying pulmonary lesion. ACT 112: Positive. There are findings on this exam that require communication between the performing entity and the patient following Patient Test Result Information Act [place] Act 112) guidelines. Electronically signed by: Jay Sandoval M.D. 11/26/2021 5:09 PM Neck CTA 11/26/21 15:[address] OF THE BRAIN; CT ANGIOGRAM OF THE BRAIN; CT ANGIOGRAM OF THE NECK CLINICAL HISTORY: Atypical headache. COMPARISON STUDY: CT of the brain dated 01/14/2018. MR angiogram of the brain dated 03/19/2013. Carotid artery ultrasound dated 03/19/2013. TECHNIQUE: Unenhanced axial CT scan of the brain is performed. Subsequently, following the IV administration of 120 of Optiray 320, CT angiogram of the head and neck was performed from the aortic arch to the vertex. Images are reviewed in the axial, sagittal, and coronal planes. 3-D MIPS images are created and assessed. IV contrast was administered without complication. All measurements were calculated based on NASCET criteria. A dose lowering technique was utilized adhering to the principles of ALARA. The neck angiogram is degraded by streak artifact from extensive metallic spinal hardware. CT DOSE: 1010.80 mGy.cm FINDINGS: Brain parenchyma: There is age-related involutional change noting mild subcortical and periventricular microangiopathic disease. There is no hemorrhage, mass effect, or evidence of acute territorial ischemia by CT criteria. There is no evidence of enhancing mass lesion on the angiogram phase images. The ventricles, sulci, and cisterns are prominent secondary to involutional change. Rosario-white matter differentiation is preserved. No extra- axial fluid collection is seen. Thoracic aorta: There is atherosclerotic calcification of the thoracic aorta. Visualized portions of the thoracic aorta are normal in caliber. The aortic arch demonstrates standard 3-vessel anatomy. Right carotid arterial system: The right common carotid artery is widely patent, as are the right internal and external carotid arteries. Left carotid arterial system: The left common carotid artery is widely patent, as are the left internal and external carotid arteries. Mild calcified plaque is noted in the carotid bulb. Vertebral arteries: The vertebral arteries are widely patent bilaterally and codominant. Subclavian arteries: Widely patent bilaterally. Intracranial vasculature: There is atherosclerotic calcification of the cavernous carotid and vertebral arteries. The internal carotid arteries are patent at the skull base, as are the anterior and middle cerebral arteries bilaterally. The vertebrobasilar system and posterior cerebral arteries are w idely patent. The vertebral arteries are codominant. 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 No additional aneurysm is identified. No high-grade stenosis or focal vessel cough is seen throughout the intracranial circulation. Jugular veins: Patent bilaterally. Dural sinuses: Patent. Lung apices: Emphysematous change is noted in the upper lobes. An indeterminant 1.1 cm patchy opacity is partially visualized in the right upper lobe on image #1. Soft tissues: The visualized pharyngeal soft tissues are normal in appearance noting angiographic phase technique. The oropharyngeal airway appears widely patent. The thyroid gland is enlarged and heterogeneous. The salivary glands are normal in appearance. No cervical lymphadenopathy is seen. Skeletal structures: The skeletal structures are osteopenic. The calvarium appears intact. There is advanced multilevel cervical spondylosis with extensive postoperative change. No lytic or blastic lesion is seen. Orbits: The bony orbits are intact. Orbital contents are normal as visualized noting bilateral ocular lens implants. Sinuses and mastoids: Findings suggest previous paranasal sinus surgery. The par anasal sinuses are clear. The mastoid air cells are well pneumatized. IMPRESSION: 1. There is no hemorrhage, mass effect, or evidence of acute territorial ischemia by CT criteria. 2. 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 3. Otherwise unremarkable CT angiogram of the brain. 4. Unremarkable CT angiogram of the neck. 5. Emphysema. 6. There is a 1.1 cm patchy airspace opacity partially visualized in the right upper lobe. This could be on an infectious/inflammatory basis and clinical correlation will be required. A follow-up chest CT is recommended in 3 months time for reassessment and to exclude the possibility of underlying pulmonary lesion. ACT 112: Positive. There are findings on this exam that require communication between the performing entity and the patient following Patient Test Result Information Act ([place] Act 112) guidelines. Electronically signed by: Jay Sandoval M.D. 11/26/2021 5:09 PM MDM Narrative This is an 81-year-old female who presents with complaints of weakness, headache, and cough for the last 2 days. Patient with a normal and nonfocal neuro exam at bedside, no respiratory distress noted, no accompanying chest pain. Patient's labs drawn and sent, EKG performed which was reassuring. CT and CT angiography of the head was reassuring, incidental note of a small aneurysm noted. This was discussed with the patient at bedside. I do not feel it is contributing to her current headache, there is no evidence of leakage or rupture. Despite the chest x-ray being negative, a right upper lobe pneumonia was noted on the CTs. Given cough, weakness, leukocytosis, and this finding I suspect it is likely related to the underlying pneumonia. Patient started on antibiotics for community-acquired pneumonia. Patient was not requiring add itional respiratory support, no hypoxia noted while in the ER. I did discuss with her the elevated troponin and BNP. I discussed this could be secondary to her initial tachycardia which did improve with IV fluids and I suspect may be at least in part to dehydration. I also discussed with her that the elevated troponin could be secondary to infection itself. I do not suspect acute CHF. Given age and history, I did recommend additional inpatient evaluation and management for treatment of her infection, controlling her headache, and additional evaluation of her heart as a precaution. Patient verbalized understanding of this and was in agreement with plan. I did discuss this with her family over the phone in addition at her request. An order was placed for continuous cardiac monitoring. The monitor shows a rate of _88_ with _normal sinus__ rhythm. Impression & Plan Headache, Elevated troponin, Pneumonia, Elevated brain natriuretic peptide (BNP) level, Dehydration Discharge Plan Visit Data Chief Complaint: Weakness Stated Complaint: weakness ED Provider: Lissette Benavidez Discharge Problem: Headache, Elevated troponin, Pneumonia, Elevated brain natriuretic peptide (BNP) level, Dehydration Patient Disposition: Admitted As Inpatient Discharge Instructions Interventions: ED Discharge Assessment Last Done: 11/26/21 19:54 Discharge Problem: Headache Qualifiers: Headache type: unspecified Headache chronicity pattern: acute headache Intractability: not intractable Qualified Code(s): R51.9 - Headache, unspecified Pneumonia Qualifiers: Pneumonia type: due to unspecified organism Laterality: right Lung location: upper lobe of lung Qualified Code(s): J18.9 - Pneumonia, unspecified organism
[2021-11-26 16:07] LABS: Basophils # (auto) 0.03 K/uL (0-0.2); Basophils % (auto) 0.2 %; Eosinophils # (auto) 0.27 K/uL (0-0.5); Eosinophils % (auto) 1.5 %; Hematocrit (blood only) 40.2 % (37-47); Hemoglobin 13.3 g/dL (12.0-16.0); Immature Granulocytes # (auto) 0.08 K/uL (0.00-0.02); Immature Granulocytes % (auto) 0.5 %; Lymphocytes # (auto) 1.23 K/uL (1.2-3.4); Mean Corpuscular Hemoglobin 29.8 pg (25-34); Mean Corpuscular Hgb Conc 33.1 g/dL (32-36); Mean Corpuscular Volume 89.9 fL (80-100); Mean Platelet Volume 11.6 fL (7.4-10.4); Monocytes # (auto) 1.64 K/uL (0.11-0.59); Monocytes % (auto) 9.4 %; Neutrophils # (auto) 14.29 K/uL (1.4-6.5); Neutrophils % (auto) 81.4 %; Platelet Count 220 K/uL (130-400); RDW Coefficient of Variation 14.5 % (11.5-14.5); RDW Standard Deviation 47.7 fL (36.4-46.3); Red Blood Count 4.47 M/uL (4.2-5.4); White Blood Count 17.54 K/uL (4.8-10.8)
--- NOTE | 2021-11-26 16:18 | XRay Report ---
XR chest 1V portable CLINICAL HISTORY: Cough. COMPARISON STUDY: Chest radiograph July 29, 2021. FINDINGS: Lung volumes are normal. Lungs are clear. There is no pneumothorax or pleural effusion. Car diac size is stable. Mediastinal contours are normal. There is no evidence for pulmonary edema. Posto perative finding within the cervical spine are incidentally noted. IMPRESSION: No acute cardiopulmonary findings. ACT 112: Negative or not required by law. Electronically signed by: Otoniel Lemus M.D. 11/26/2021 4:16 PM
[2021-11-26 16:28] LABS: Albumin Globulin Ratio 1.4 (0.9-2); Albumin Level 4.1 gm/dl (3.4-5.0); BUN Creatinine Ratio 18.8 (10-20); Bilirubin,Total 0.7 mg/dl (0.2-1.0); Calcium 9.6 mg/dl (8.5-10.1); Creatinine Clr Calc Pharmacy 28.8 ml/min; Est GFR (African American) 41.5 ml/min; Est GFR (Non-African American) 35.8 ml/min; Globulin 2.9 gm/dl (2.5-4.0); Magnesium 1.8 mg/dl (1.7-2.4); Potassium 4.6 mmol/L (3.5-5.1)
[2021-11-26] MEDS ORDERED: OPTIRAY 320 125ml IV ONE (16:51)
--- NOTE | 2021-11-26 17:11 | CT Scan Report ---
UNENHANCED CT OF THE BRAIN; CT ANGIOGRAM OF THE BRAIN; CT ANGIOGRAM OF THE NECK CLINICAL HISTORY: Atypical headache. COMPARISON STUDY: CT of the brain dated 01/14/2018. MR angiogram of the brain dated 03/19/2013. Caroti d artery ultrasound dated 03/19/2013. TECHNIQUE: Unenhanced axial CT scan of the brain is performed. Subsequently, following the IV adminis tration of 120 of [address] 320, CT angiogram of the head and neck was performed from the aortic arch t o the vertex. Images are reviewed in the axial, sagittal, and coronal planes. 3-D MIPS images are cre ated and assessed. IV contrast was administered without complication. All measurements were calculate d based on NASCET criteria. A dose lowering technique was utilized adhering to the principles of ALA RA. The neck angiogram is degraded by streak artifact from extensive metallic spinal hardware. CT DOSE: 1010.80 mGy.cm FINDINGS: Brain parenchyma: There is age-related involutional change noting mild subcortical and periventricula r microangiopathic disease. There is no hemorrhage, mass effect, or evidence of acute territorial isc hemia by CT criteria. There is no evidence of enhancing mass lesion on the angiogram phase images. Th e ventricles, sulci, and cisterns are prominent secondary to involutional change. Rosario-white matter d ifferentiation is preserved. No extra-axial fluid collection is seen. Thoracic aorta: There is atherosclerotic calcification of the thoracic aorta. Visualized portions of the thoracic aorta are normal in caliber. The aortic arch demonstrates standard 3-vessel anatomy. Right carotid arterial system: The right common carotid artery is widely patent, as are the right int ernal and external carotid arteries. Left carotid arterial system: The left common carotid artery is widely patent, as are the left internal affairs commander al and external carotid arteries. Mild calcified plaque is noted in the carotid bulb. Vertebral arteries: The vertebral arteries are widely patent bilaterally and codominant. Subclavian arteries: Widely patent bilaterally. Intracranial vasculature: There is atherosclerotic calcification of the cavernous carotid and vertebr al arteries. The internal carotid arteries are patent at the skull base, as are the anterior and midd le cerebral arteries bilaterally. The vertebrobasilar system and posterior cerebral arteries are wide ly patent. The vertebral arteries are codominant. There is a 2 mm aneurysm of the supraclinoid left i nternal carotid artery, best seen on axial image #106. No additional aneurysm is identified. No high- grade stenosis or focal vessel cough is seen throughout the intracranial circulation. Jugular veins: Patent bilaterally. Dural sinuses: Patent. Lung apices: Emphysematous change is noted in the upper lobes. An indeterminant 1.1 cm patchy opacity is partially visualized in the right upper lobe on image #1. Soft tissues: The visualized pharyngeal soft tissues are normal in appearance noting angiographic pha se technique. The oropharyngeal airway appears widely patent. The thyroid gland is enlarged and heter ogeneous. The salivary glands are normal in appearance. No cervical lymphadenopathy is seen. Skeletal structures: The skeletal structures are osteopenic. The calvarium appears intact. There is a dvanced multilevel cervical spondylosis with extensive postoperative change. No lytic or blastic lesi on is seen. Orbits: The bony orbits are intact. Orbital contents are normal as visualized noting bilateral ocular lens implants. Sinuses and mastoids: Findings suggest previous paranasal sinus surgery. The paranasal sinuses are cl ear. The mastoid air cells are well pneumatized. IMPRESSION: 1. There is no hemorrhage, mass effect, or evidence of acute territorial ischemia by CT criteria. 2. 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 3. Otherwise unremarkable CT angiogram of the brain. 4. Unremarkable CT angiogram of the neck. 5. Emphysema. 6. There is a 1.1 cm patchy airspace opacity partially visualized in the right upper lobe. This could be on an infectious/inflammatory basis and clinical correlation will be required. A follow-up chest CT is recommended in 3 months time for reassessment and to exclude the possibility of underlying pulm onary lesion. ACT 112: Positive. There are findings on this exam that require communication between the performing entity and the patient following Patient Test Result Information Act ([place] Act 112) guidelines. Electronically signed by: Jay Sandoval M.D. 11/26/2021 5:09 PM
[2021-11-26 17:16] LABS: Troponin I 0.07 ng/ml (0-0.04)
[2021-11-26] MEDS ORDERED: ACETAMINOPHEN 1,000 MG/100 ML VIAL IV STA (17:18)
[2021-11-26] MEDS ORDERED: cefTRIAXone SODIUM 1,000 MG/50 ML BAG IV STA (17:37)
[2021-11-26] MEDS ORDERED: AZITHROMYCIN 250 MG TAB PO ONE (17:37)
[2021-11-26] MEDS ORDERED: SODIUM CHLORIDE 0.9% 1000ML 1,000 ML IV SCH (17:45)
[2021-11-26 18:53] LABS: Influenza A virus by PCR Negative (Neg); Influenza B virus by PCR Negative (Neg); RSV by PCR Negative (Neg); SARS CoV2 RNA(COVID-19) InHosp NEGATIVE (Negative)
[2021-11-26 19:40] LABS: Appearance Urine Clear (Clear); Bacteria Urine Automated Negative (Negative); Bilirubin Urine Negative (Negative); Blood Urine 1+ (Negative); Color Urine Yellow; Epithelial Cell Urine Auto >30 /lpf (0-5); Glucose Urine UA Negative (Negative); Ketones Urine Negative (Negative); Leukocyte Esterase Urine 2+ (Negative); Nitrite Urine Negative (Negative); Protein Urine Negative (Negative); Specific Gravity Urine 1.034 (1.000-1.030); Urobilinogen Urine Negative (Negative); WBC Urine Automated >30 /hpf (0-5)
--- NOTE | 2021-11-26 20:28 | History & Physical Report ---
Date of Service November 26, 2021 Assessment & Plan (1) Atrial fibrillation with RVR: Plan: Admit to telemetry Patient presenting by referral of PCPs office for evaluation of tachycardia. In the ED, EKG showing atrial fibrillation with RVR. Patient with history of atrial fibrillation typically rate controlled on digoxin and metoprolol Increased rate likely secondary to pneumonia and mild dehydration HR improving after IVF hydration in ED Continue IVF Check dig level Continue metoprolol, digoxin, Eliquis (2) Community acquired pneumonia: Plan: CTA neck noted There is a 1.1 cm patchy airspace opacity partially visualized in the right upper lobe. This could be on an infectious/inflammatory basis and clinical correlation will be required. A follow-up chest CT is recommended in 3 months time for reassessment and to exclude the possibility of underlying pulmonary lesion. S/p IV ceftriaxone and p.o. azithromycin in the ED. Due to prolonged QT, will change azithromycin to doxycycline Possible early sepsis with tachycardia and leukocytosis (WBC 17 K); BP stable, afebrile Blood and sputum cultures (3) Elevated troponin: Plan: Troponin 0.07, likely due to demand ischemia in the setting of A. 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 (6) Abnormal urinalysis: Plan: Asymptomatic, likely contaminant, on IV ceftriaxone as above Follow urine culture (7) DM type 2 (diabetes mellitus, type 2): Plan: Hgb A1c 6.5 10/2021 Hold Ozempic and utilize NovoLog per protocol while hospitalized (8) CKD (chronic kidney disease), stage III: Plan: Baseline creatinine low to mid 1's Creatinine 1.3 today Monitor renal functions (9) Hypothyroidism: Plan: Continue levothyroxine TSH 2.887 (10) Depression: Plan: Stable, continue home meds (11) DVT prophylaxis: Plan: On Eliquis History of Present Illness Chief Complaint: Referred by PCP for tachycardia Primary Care Provider: Florentin Calvo DO 81-year-old female with PMH DM type II, hypothyroidism, CKD stage III, RADHA intolerant to CPAP, moderate persistent asthma, pulmonary hypertension, HTN, chronic atrial fibrillation anticoagulated on Eliquis, JALEEL, and other problems to below who was referred to the ED by PCPs office for evaluation of tachycardia. Patient reports she had episode of a headache last week she describes starting at the top of her head and went down to her neck. She reports she developed a very similar episode yesterday that has been somewhat persistent. Patient also reports feeling generally weak and had a near syncopal episode in the shower today. Patient reports that she developed a cough productive for white/green sputum yesterday and also voice hoarseness. Denies shortness of breath and palpitations. No fevers or chills. Reports a poor appetite however no abdominal pain, nausea, vomiting, diarrhea. Denies urinary symptoms. In the ED, patient was found to be in atrial fibrillation with RVR. She was given IVF with improvement in her symptoms. Labs show WBC 17 K, troponin 0.07. EKG shows atrial fibrillation rate 123, prolonged QT at 523, ST depressions in the lateral leads. BP stable. Head CT, head and neck CTAs unremarkable for acute intracranial findings however neck CTA showed 1.1 cm patchy airspace opacity partially visualized in the right upper lobe. Patient was also given IV Tylenol, p.o. azithromycin, IV ceftriaxone. Allergies Allergy/AdvReac Type Severity Reaction Status Date / Time Sulfa (Sulfonamide Allergy Severe Severe Verified 11/26/21 19:26 Antibiotics) rxn: rash and hives celecoxib Allergy Intermediate Rash/Hives/ Verified 11/26/21 19:26 Itching. cephalexin Allergy Intermediate Rash/Hives/ Verified 11/26/21 19:26 Itching. furosemide Allergy Intermediate Rash/Hives/ Verified 11/26/21 19:26 Itching. gabapentin Allergy Intermediate Rash/Hives/ Verified 11/26/21 19:26 Itching. pregabalin Allergy Intermediate Rash/Hives/ Verified 11/26/21 19:26 Itching. meclizine Allergy Unknown Unknown Verified 11/26/21 19:26 methylprednisolone Allergy Unknown Rash/Hives/ Verified 11/26/21 19:26 Itching. Penicillins Allergy Unknown Unknown. Verified 11/26/21 19:26 prednisone Allergy Unknown Rash/Hives/ Verified 11/26/21 19:26 Itching. vancomycin Allergy Unknown Jodi Verified 11/26/21 19:27 syn. . nickel Allergy Unknown Verified 11/26/21 19:27 dexamethasone AdvReac Intermediate Steroid Verified 11/26/21 19:27 psychosis. Home Medications Medication Instructions Recorded Confirmed Type alprazolam 0.5 mg tablet 0.5 mg PO QID PRN tab 04/08/19 11/26/21 History folic acid 1 mg tablet 1 mg PO DAILY tab 04/08/19 11/26/21 History lansoprazole 15 mg capsule,delayed 15 mg PO DAILY PRN cap 04/08/19 11/26/21 History release montelukast 10 mg tablet 10 mg PO DAILY tab 04/08/19 11/26/21 History venlafaxine 150 mg 150 mg PO DAILY #30 cap 04/08/19 11/26/21 History capsule,extended release 24 hr digoxin 125 mcg (0.125 mg) tablet 125 mcg PO 3XWK 06/03/20 11/26/21 History ferrous sulfate 325 mg (65 mg 325 mg PO DAILY 06/03/20 11/26/21 History iron) tablet ipratropium bromide 21 mcg (0.03 2 spray INTRANASAL DAILY PRN 06/03/20 11/26/21 History %) nasal spray metoprolol succinate 50 mg 50 mg PO DAILY 06/03/20 11/26/21 History tablet,extended release 24 hr allopurinol 100 mg tablet 100 mg PO DAILY 11/26/21 11/26/21 History apixaban 5 mg tablet (Eliquis) 5 mg PO BID 11/26/21 11/26/21 History aspirin 81 mg tablet 81 mg PO DAILY 11/26/21 11/26/21 History atorvastatin 20 mg tablet 20 mg PO DAILY 11/26/21 11/26/21 History cholecalciferol (vitamin D3) 50 150 mcg PO DAILY 11/26/21 11/26/21 History mcg (2,000 unit) capsule (Vitamin D3) colchicine 0.6 mg tablet 0.6 mg PO DAILY 11/26/21 11/26/21 History levothyroxine 137 mcg tablet 137 mcg PO QAM 11/26/21 11/26/21 History semaglutide (Ozempic) 0.25 mg SUBCUT WK 11/26/21 11/26/21 History Past Med/Surg History Medical History Asthma, moderate persistent Atrial fibrillation and flutter CKD (chronic kidney disease), stage III Depression DM type 2 (diabetes mellitus, type 2) History of tobacco abuse HTN (hypertension) Hypothyroidism Meniere disease RADHA (obstructive sleep apnea) Osteoarthritis of right knee Pulmonary emphysema Surgical History H/O sinus surgery History of cholecystectomy History of hysterectomy History of laminectomy History of repair of left rotator cuff Hx of neck surgery Family History Father Diabetes Social History Smoking Status: Former smoker Tobacco Type: Cigarettes packs per day: 1.5; Years Smoked: 20; Cigarettes Per Day: 30; Second Hand Exposure: No; Hx Alcohol Use: No Hx Substance Use: No Preferred Language: Barbadian Communication Ability: Effective Tinner Helper Required: No Beliefs That Will Affect Care: None Current Living Situation: Spouse Feels Safe at Home: Yes Assistive Devices: Glasses Review of Systems Review of Systems: ROS per HPI, all other systems reviewed and negative Physical Exam Constitutional: WD/WN, vitals as above Eyes: PERRL, conjunctivae normal, anicteric sclerae ENMT: external ear and nose normal, oropharynx normal Respiratory: normal respiratory effort; no respiratory distress Auscultation: + diminished lung sounds Cardiovascular: Rate/Rhythm: + tachycardic and + irregularly irregular Vessels: normal peripheral pulses Extremities: no edema Gastrointestinal (Abdomen): normal bowel sounds, soft, nontender, no hepatosplenomegaly Musculoskeletal: no cyanosis or clubbing, extremities motor strength 5/5 Skin: no rashes, warm and dry Neurologic: PERRL, EOMI, accommodation nl, no face palsy, no dysarthria Psychiatric: A+Ox3, euthymic affect Results & Data Results & Data ([facility]) Vital Signs (Past 12 Hours) Vital Signs Temp Pulse Pulse Resp BP BP Pulse Ox 11/26/21 18:53 98 H 18 133/80 95 11/26/21 18:01 120 H 16 133/85 97 11/26/21 16:11 84 18 121/58 L 96 11/26/21 14:41 36.6 C 122 H 18 92/65 L 96 Laboratory Results Short CBC 11/26/21 Range/Units 14:54 WBC 17.54 H (4.8-10.8) K/uL Hgb 13.3 (12.0-16.0) g/dL Hct 40.2 (37-47) % Plt Count 220 (130-400) K/uL BMP 11/26/21 14:54 Sodium 133 L Potassium 4.6 Chloride 99 Carbon Dioxide 26 BUN 26 H Creatinine 1.38 H Glucose 195 H Calcium 9.6 Cardiac Enzymes 11/26/21 Range/Units 14:54 Troponin I 0.07 H* (0-0.04) ng/ml Liver Function 11/26/21 Range/Units 14:54 Total Bilirubin 0.7 (0.2-1.0) mg/dl AST 40 H (13-39) U/L ALT 43 (7-52) U/L Alkaline Phosphatase 193 H (34-104) U/L Albumin 4.1 (3.4-5.0) gm/dl Urine 11/26/21 Range/Units 19:28 Urine Color Yellow Urine Appearance Clear (Clear) Urine pH 5.0 (4.5-7.5) Ur Specific [place] 1.034 H (1.000-1.030) Urine Protein Negative (Negative) Urine Glucose (UA) Negative (Negative) Diagnostic Findings Chest X-Ray 11/26/21 15:37 XR chest 1V portable CLINICAL HISTORY: Cough. COMPARISON STUDY: Chest radiograph July 29, 2021. FINDINGS: Lung volumes are normal. Lungs are clear. There is no pneumothorax or pleural effusion. Cardiac size is stable. Mediastinal contours are normal. There is no evidence for pulmonary edema. Postoperative finding within the cervical spine are incidentally noted. IMPRESSION: No acute cardiopulmonary findings. ACT 112: Negative or not required by law. Electronically signed by: Otoniel Lemus M.D. 11/26/2021 4:[address] 11/26/21 15:[address] OF THE BRAIN; CT ANGIOGRAM OF THE BRAIN; CT ANGIOGRAM OF THE NECK CLINICAL HISTORY: Atypical headache. COMPARISON STUDY: CT of the brain dated 01/14/2018. MR angiogram of the brain dated 03/19/2013. Carotid artery ultrasound dated 03/19/2013. TECHNIQUE: Unenhanced axial CT scan of the brain is performed. Subsequently, following the IV administration of 120 of Optiray 320, CT angiogram of the head and neck was performed from the aortic arch to the vertex. Images are reviewed in the axial, sagittal, and coronal planes. 3-D MIPS images are created and assessed. IV contrast was administered without complication. All measurements were calculated based on NASCET criteria. A dose lowering technique was utilized adhering to the principles of ALARA. The neck angiogram is degraded by streak artifact from extensive metallic spinal hardware. CT DOSE: 1010.80 mGy.cm FINDINGS: Brain parenchyma: There is age-related involutional change noting mild subcortical and periventricular microangiopathic disease. There is no hemorrhage, mass effect, or evidence of acute territorial ischemia by CT criteria. There is no evidence of enhancing mass lesion on the angiogram phase images. The ventricles, sulci, and cisterns are prominent secondary to involutional change. Rosario-white matter differentiation is preserved. No extra- axial fluid collection is seen. Thoracic aorta: There is atherosclerotic calcification of the thoracic aorta. Visualized portions of the thoracic aorta are normal in caliber. The aortic arch demonstrates standard 3-vessel anatomy. Right carotid arterial system: The right common carotid artery is widely patent, as are the right internal and external carotid arteries. Left carotid arterial system: The left common carotid artery is widely patent, as are the left internal and external carotid arteries. Mild calcified plaque is noted in the carotid bulb. Vertebral arteries: The vertebral arteries are widely patent bilaterally and codominant. Subclavian arteries: Widely patent bilaterally. Intracranial vasculature: There is atherosclerotic calcification of the cavernous carotid and vertebral arteries. The internal carotid arteries are patent at the skull base, as are the anterior and middle cerebral arteries bilaterally. The vertebrobasilar system and posterior cerebral arteries are widely patent. The vertebral arteries are codominant. 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 No additional aneurysm is identified. No high-grade stenosis or focal vessel cough is seen throughout the intracranial circulation. Jugular veins: Patent bilaterally. Dural sinuses: Patent. Lung apices: Emphysematous change is noted in the upper lobes. An indeterminant 1.1 cm patchy opacity is partially visualized in the right upper lobe on image #1. Soft tissues: The visualized pharyngeal soft tissues are normal in appearance noting angiographic phase technique. The oropharyngeal airway appears widely patent. The thyroid gland is enlarged and heterogeneous. The salivary glands are normal in appearance. No cervical lymphadenopathy is seen. Skeletal structures: The skeletal structures are osteopenic. The calvarium appears intact. There is advanced multilevel cervical spondylosis with extensive postoperative change. No lytic or blastic lesion is seen. Orbits: The bony orbits are intact. Orbital contents are normal as visualized noting bilateral ocular lens implants. Sinuses and mastoids: Findings suggest previous paranasal sinus surgery. The paranasal sinuses are clear. The mastoid air cells are well pneumatized. IMPRESSION: 1. There is no hemorrhage, mass effect, or evidence of acute territorial ischemia by CT criteria. 2. 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 3. Otherwise unremarkable CT angiogram of the brain. 4. Unremarkable CT angiogram of the neck. 5. Emphysema. 6. There is a 1.1 cm patchy airspace opacity partially visualized in the right upper lobe. This could be on an infectious/inflammatory basis and clinical correlation will be required. A follow-up chest CT is recommended in 3 months time for reassessment and to exclude the possibility of underlying pulmonary lesion. ACT 112: Positive. There are findings on this exam that require communication between the performing entity and the patient following Patient Test Result Information Act ([place] Act 112) guidelines. Electronically signed by: Jay Sandoval M.D. 11/26/2021 5:09 PM Head CTA 11/26/21 15:[address] OF THE BRAIN; CT ANGIOGRAM OF THE BRAIN; CT ANGIOGRAM OF THE NECK CLINICAL HISTORY: Atypical headache. COMPARISON STUDY: CT of the brain dated 01/14/2018. MR angiogram of the brain dated 03/19/2013. Carotid artery ultrasound dated 03/19/2013. TECHNIQUE: Unenhanced axial CT scan of the brain is performed. Subsequently, following the IV administration of 120 of Optiray 320, CT angiogram of the head and neck was performed from the aortic arch to the vertex. Images are reviewed in the axial, sagittal, and coronal planes. 3-D MIPS images are created and assessed. IV contrast was administered without complication. All measurements were calculated based on NASCET criteria. A dose lowering technique was utiliz ed adhering to the principles of ALARA. The neck angiogram is degraded by streak artifact from extensive metallic spinal hardware. CT DOSE: 1010.80 mGy.cm FINDINGS: Brain parenchyma: There is age-related involutional change noting mild subcortical and periventricular microangiopathic disease. There is no hemorrhage, mass effect, or evidence of acute territorial ischemia by CT criteria. There is no evidence of enhancing mass lesion on the angiogram phase images. The ventricles, sulci, and cisterns are prominent secondary to involutional change. Rosario-white matter differentiation is preserved. No extra- axial fluid collection is seen. Thoracic aorta: There is atherosclerotic calcification of the thoracic aorta. Visualized portions of the thoracic aorta are normal in caliber. The aortic arch demonstrates standard 3-vessel anatomy. Right carotid arterial system: The right common carotid artery is widely patent, as are the right internal and external carotid arteries. Left carotid arterial system: The left common carotid artery is widely patent, as are the left internal and external carotid arteries. Mild calcified plaque is noted in the carotid bulb. Vertebral arteries: The vertebral arteries are widely patent bilaterally and codominant. Subclavian arteries: Widely patent bilaterally. Intracranial vasculature: There is atherosclerotic calcification of the cavernous carotid and vertebral arteries. The internal carotid arteries are patent at the skull base, as are the anterior and middle cerebral arteries bilaterally. The vertebrobasilar system and posterior cerebral arteries are widely patent. The vertebral arteries are codominant. 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 No additional aneurysm is identified. No high-grade stenosis or focal vessel cough is seen throughout the intracranial circulation. Jugular veins: Patent bilaterally. Dural sinuses: Patent. Lung apices: Emphysematous change is noted in the upper lobes. An indeterminant 1.1 cm patchy opacity is partially visualized in the right upper lobe on image #1. Soft tissues: The visualized pharyngeal soft tissues are normal in appearance noting angiographic phase technique. The oropharyngeal airway appears widely patent. The thyroid gland is enlarged and heterogeneous. The salivary glands are normal in appearance. No cervical lymphadenopathy is seen. Skeletal structures: The skeletal structures are osteopenic. The calvarium appears intact. There is advanced multilevel cervical spondylosis with extensive postoperative change. No lytic or blastic lesion is seen. Orbits: The bony orbits are intact. Orbital contents are normal as visualized noting bilateral ocular lens implants. Sinuses and mastoids: Findings suggest previous paranasal sinus surgery. The paranasal sinuses are clear. The mastoid air cells are well pneumatized. IMPRESSION: 1. There is no hemorrhage, mass effect, or evidence of acute territorial ischemia by CT criteria. 2. 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 3. Otherwise unremarkable CT angiogram of the brain. 4. Unremarkable CT angiogram of the neck. 5. Emphysema. 6. There is a 1.1 cm patchy airspace opacity partially visualized in the right upper lobe. This could be on an infectious/inflammatory basis and clinical correlation will be required. A follow-up chest CT is recommended in 3 months time for reassessment and to exclude the possibility of underlying pulmonary lesion. ACT 112: Positive. There are findings on this exam that require communication between the performing entity and the patient following Patient Test Result Information Act [place] Act 112[place] guidelines. Electronically signed by: Jay Sandoval M.D. 11/26/2021 5:09 PM Neck CTA 11/26/21 15:[address] OF THE BRAIN; CT ANGIOGRAM OF THE BRAIN; CT ANGIOGRAM OF THE NECK CLINICAL HISTORY: Atypical headache. COMPARISON STUDY: CT of the brain dated 01/14/2018. MR angiogram of the brain dated 03/19/2013. Carotid artery ultrasound dated 03/19/2013. TECHNIQUE: Unenhanced axial CT scan of the brain is performed. Subsequently, following the IV administration of 120 of Optiray 320, CT angiogram of the head and neck was performed from the aortic arch to the vertex. Images are reviewed in the axial, sagittal, and coronal planes. 3-D MIPS images are created and assessed. IV contrast was administered without complication. All measurements were calculated based on NASCET criteria. A dose lowering technique was u tilized adhering to the principles of ALARA. The neck angiogram is degraded by streak artifact from extensive metallic spinal hardware. CT DOSE: 1010.80 mGy.cm FINDINGS: Brain parenchyma: There is age-related involutional change noting mild subcortical and periventricular microangiopathic disease. There is no hemorrhage, mass effect, or evidence of acute territorial ischemia by CT criteria. There is no evidence of enhancing mass lesion on the angiogram phase images. The ventricles, sulci, and cisterns are prominent secondary to involutional change. Rosario-white matter differentiation is preserved. No extra- axial fluid collection is seen. Thoracic aorta: There is atherosclerotic calcification of the thoracic aorta. Visualized portions of the thoracic aorta are normal in caliber. The aortic arch demonstrates standard 3-vessel anatomy. Right carotid arterial system: The right common carotid artery is widely patent, as are the right internal and external carotid arteries. Left carotid arterial system: The left common carotid artery is widely patent, as are the left internal and external carotid arteries. Mild calcified plaque is noted in the carotid bulb. Vertebral arteries: The vertebral arteries are widely patent bilaterally and codominant. Subclavian arteries: Widely patent bilaterally. Intracranial vasculature: There is atherosclerotic calcification of the oliverio nous carotid and vertebral arteries. The internal carotid arteries are patent at the skull base, as are the anterior and middle cerebral arteries bilaterally. The vertebrobasilar system and posterior cerebral arteries are widely patent. The vertebral arteries are codominant. 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 No additional aneurysm is identified. No high-grade stenosis or focal vessel cough is seen throughout the intracranial circulation. Jugular veins: Patent bilaterally. Dural sinuses: Patent. Lung apices: Emphysematous change is noted in the upper lobes. An indeterminant 1.1 cm patchy opacity is partially visualized in the right upper lobe on image #1. Soft tissues: The visualized pharyngeal soft tissues are normal in appearance noting angiographic phase technique. The oropharyngeal airway appears widely patent. The thyroid gland is enlarged and heterogeneous. The salivary glands are normal in appearance. No cervical lymphadenopathy is seen. Skeletal structures: The skeletal structures are osteopenic. The calvarium appears intact. There is advanced multilevel cervical spondylosis with extensive postoperative change. No lytic or blastic lesion is seen. Orbits: The bony orbits are intact. Orbital contents are normal as visualized noting bilateral ocular lens implants. Sinuses and mastoids: Findings suggest previous paranasal sinus surgery. The paranasal sinuses are clear. The mastoid air cells are well pneumatized. IMPRESSION: 1. There is no hemorrhage, mass effect, or evidence of acute territorial ischemia by CT criteria. 2. 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 3. Otherwise unremarkable CT angiogram of the brain. 4. Unremarkable CT angiogram of the neck. 5. Emphysema. 6. There is a 1.1 cm patchy airspace opacity partially visualized in the right upper lobe. This could be on an infectious/inflammatory basis and clinical correlation will be required. A follow-up chest CT is recommended in 3 months time for reassessment and to exclude the possibility of underlying pulmonary lesion. ACT 112: Positive. There are findings on this exam that require communication between the performing entity and the patient following Patient Test Result Information Act ([place] Act 112) guidelines. Electronically signed by: Jay Sandoval M.D. 11/26/2021 5:09 PM Code Status & VTE Plan Code Status Patient is a full code as per my discussion with her. Patient states that her , Julien, would be her decision maker in the event she were to be unable to. VTE Prophylaxis Plan VTE Prophylaxis will be ordered: No Supervising Physician Co-Signing Physician Notes delayed entry date of service noted above Attending Addendum: care coordinated with JESS Conner please refer to her notes for full details, I agree with her notes, assessment and plan patient seen and examined, records reviewed by myself as well Buster Mcghee MD (1) CKD (chronic kidney disease), stage III Chronic kidney disease stage 3 subtype: stage 3b (GFR 30-44) Qualified Code(s): N18.32 - Chronic kidney disease, stage 3b
[2021-11-26] MEDS ORDERED: CARBOHYDRATES FOR HYPOGLYCEMIA PO PRN (20:55)
[2021-11-26] MEDS ORDERED: ACETAMINOPHEN 325 MG TAB PO PRN (20:55)
[2021-11-26] MEDS ORDERED: GLUCAGON FOR INJ 1 MG VIAL SQ PRN (20:55)
[2021-11-26] MEDS ORDERED: DEXTROSE 50% 50 ML SYRINGE IV PRN (20:55)
[2021-11-26] MEDS ORDERED: GLUCOSE 40% GEL 15 GM TUBE PO PRN (20:55)
[2021-11-26] MEDS ORDERED: GLUCOSE 10 TABS/TUBE PO PRN (20:55)
[2021-11-26] MEDS: SODIUM CHLORIDE 0.9% 1000ML 1,000 ML IV SCH (21:20)
[2021-11-26] MEDS: INSULIN ASPART PER UNIT SC SCH (21:22)
[2021-11-26] MEDS: APIXABAN 5 MG TABLET PO SCH (21:59)
[2021-11-26] MEDS: DOXYCYCLINE HYCLATE 100 MG in DEXTROSE 5% 100 ML IV SCH (22:01)
[2021-11-27 03:41] LABS: Hematocrit (blood only) 36.4 % (37-47); Hemoglobin 11.9 g/dL (12.0-16.0); Mean Corpuscular Hemoglobin 29.5 pg (25-34); Mean Corpuscular Hgb Conc 32.7 g/dL (32-36); Mean Corpuscular Volume 90.1 fL (80-100); Mean Platelet Volume 11.2 fL (7.4-10.4); Platelet Count 192 K/uL (130-400); RDW Coefficient of Variation 14.4 % (11.5-14.5); RDW Standard Deviation 47.4 fL (36.4-46.3); Red Blood Count 4.04 M/uL (4.2-5.4); White Blood Count 14.08 K/uL (4.8-10.8)
[2021-11-27 04:00] LABS: BUN Creatinine Ratio 20.2 (10-20); Calcium 8.9 mg/dl (8.5-10.1); Est GFR (African American) 47.2 ml/min; Est GFR (Non-African American) 40.7 ml/min
--- NOTE | 2021-11-27 07:10 | Electrocardiogram Report ---
Test Reason : Blood Pressure : / mmHG Vent. Rate : 123 BPM Atrial Rate : 123 BPM P-R Int : 232 ms QRS Dur : 094 ms QT Int : 366 ms P-R-T Axes : 084 031 042 degrees QTc Int : 523 ms Sinus tachycardia with 1st degree A-V block Abnormal ECG When compared with ECG of 29-JUL-2021 13:14, Sinus rhythm has replaced Atrial fibrillation Vent. rate has increased BY [address] now depressed in Lateral leads T wave inversion no longer evident in Inferior leads Confirmed by Brian Leong ([id number]) on 11/27/2021 7:09:51 AM Referred By: REFERRED SELF Confirmed By:Brian Leong
[2021-11-27] MEDS: LEVOTHYROXINE SODIUM 137 MCG TABLET PO SCH (07:39)
[2021-11-27] MEDS: INSULIN ASPART PER UNIT SC SCH ×4 (07:53→20:59)
[2021-11-27] MEDS: ASPIRIN 81 MG ECTAB PO SCH (08:19)
[2021-11-27] MEDS: APIXABAN 5 MG TABLET PO SCH ×2 (08:19→19:58)
[2021-11-27] MEDS: METOPROLOL SUCC 50MG EXT REL TAB PO SCH (08:20)
[2021-11-27] MEDS: FOLIC ACID 1 MG TAB PO SCH (08:20)
[2021-11-27] MEDS: MONTELUKAST SODIUM 10 MG TABLET PO SCH (08:20)
[2021-11-27] MEDS: COLCHICINE 0.6 MG TAB PO SCH (08:20)
[2021-11-27] MEDS: ATORVASTATIN 20 MG TAB PO SCH (08:20)
[2021-11-27] MEDS: allopurinoL 100 MG TAB PO SCH (08:20)
[2021-11-27] MEDS: FERROUS SULFATE 325 MG TAB PO SCH (08:20)
--- NOTE | 2021-11-27 08:25 | Electrocardiogram Report ---
Test Reason : Blood Pressure : / mmHG Vent. Rate : 083 BPM Atrial Rate : 227 BPM P-R Int : 000 ms QRS Dur : 076 ms QT Int : 378 ms P-R-T Axes : 000 015 259 degrees QTc Int : 444 ms Atrial flutter with variable A-V block Diffuse Nonspecific ST and T wave abnormality Abnormal ECG When compared with ECG of 26-NOV-2021 14:37, HR has decreased by 40 bpm Prior tracing likely atrial flutter also Confirmed by Nilay Russ ([id number]) on 11/27/2021 8:25:27 AM Referred By: REFERRED SELF Confirmed By:Nilay Russ
--- NOTE | 2021-11-27 08:53 | Electrocardiogram Report ---
Test Reason : Blood Pressure : / mmHG Vent. Rate : 099 BPM Atrial Rate : 099 BPM P-R Int : 200 ms QRS Dur : 084 ms QT Int : 340 ms P-R-T Axes : 072 018 -65 degrees QTc Int : 436 ms Atrial tachycardia with short runs and blocked terminal beats Nonspecific ST and T wave abnormality Abnormal ECG When compared with ECG of 26-NOV-2021 22:17, atrial tachycardia now with blocked beats Confirmed by Nilay Russ ([id number]) on 11/27/2021 8:52:26 AM Referred By: REFERRED SELF Confirmed By:Nilay Russ
--- NOTE | 2021-11-27 10:02 | Cardiology Consultation ---
Date of Consultation November 27, 2021 Assessment & Plan (1) Atrial flutter: (2) Elevated troponin: (3) Community acquired pneumonia: (4) DM type 2 (diabetes mellitus, type 2): (5) Pulmonary emphysema: (6) RADHA (obstructive sleep apnea): (7) HTN (hypertension): (8) Carotid artery aneurysm: newly discovered atrial flutter in the setting of CAP already on Eliquis for hx of paroxysmal atrial fibrillation rates are controlled first EKG showed QT prolongation but that has resolved with improvement of her rate minimal trop elevation likely due to demand ischemia echo shows preserved LV systolic function with severe LA enlargement cont outpatient cardiac meds would recommend outpt EP eval for atrial arrhythmias. Her device will be checked as an outpatient as well. History of Present Illness Reason for Consultation: atrial flutter with rvr Requesting Physician: SABRA Attending Physician: Rosie Bahena MD History of Present Illness It was my pleasure to see it was my pleasure to see Mrs. Barakat in cardiac consultation today November 27, 2021. She is a very pleasant 81 yo F who follows with Dr. Hewitt of our cardiology practice for a hx of paroxysmal atrial fibrillation and unexplained syncope s/p Linq placement. Presented to [facility] ER on 11/26/2021 from her PCPs office after being found to be weak and near syncopal. She states that she has not been feeling well for the last few days. She has had significant nausea and a productive cough. She was in the shower on the morning of presentation when she developed a severe headache and became lightheaded. She states that this is similar to her previous syncopal spells in the past but this time she did not lose consciousness. Upon arrival to the ED she was diagnosed with community-acquired pneumonia and found to be in atrial flutter which is a new diagnosis for her. She states that she has been compliant with all her medications including her Eliquis. Allergies Allergy/AdvReac Type Severity Reaction Status Date / Time Sulfa (Sulfonamide Allergy Severe Severe Verified 11/26/21 19:26 Antibiotics) rxn: rash and hives celecoxib Allergy Intermediate Rash/Hives/ Verified 11/26/21 19:26 Itching. cephalexin Allergy Intermediate Rash/Hives/ Verified 11/26/21 19:26 Itching. furosemide Allergy Intermediate Rash/Hives/ Verified 11/26/21 19:26 Itching. gabapentin Allergy Intermediate Rash/Hives/ Verified 11/26/21 19:26 Itching. pregabalin Allergy Intermediate Rash/Hives/ Verified 11/26/21 19:26 Itching. meclizine Allergy Unknown Unknown Verified 11/26/21 19:26 methylprednisolone Allergy Unknown Rash/Hives/ Verified 11/26/21 19:26 Itching. Penicillins Allergy Unknown Unknown. Verified 11/26/21 19:26 prednisone Allergy Unknown Rash/Hives/ Verified 11/26/21 19:26 Itching. vancomycin Allergy Unknown Jodi Verified 11/26/21 19:27 syn. . nickel Allergy Unknown Verified 11/26/21 19:27 dexamethasone AdvReac Intermediate Steroid Verified 11/26/21 19:27 psychosis. Home Medications Medication Instructions Recorded Confirmed Type alprazolam 0.5 mg tablet 0.5 mg PO QID PRN tab 04/08/19 11/26/21 History folic acid 1 mg tablet 1 mg PO DAILY tab 04/08/19 11/26/21 History lansoprazole 15 mg capsule,delayed 15 mg PO DAILY PRN cap 04/08/19 11/26/21 History release montelukast 10 mg tablet 10 mg PO DAILY tab 04/08/19 11/26/21 History venlafaxine 150 mg 150 mg PO DAILY #30 cap 04/08/19 11/26/21 History capsule,extended release 24 hr digoxin 125 mcg (0.125 mg) tablet 125 mcg PO 3XWK 06/03/20 11/26/21 History ferrous sulfate 325 mg (65 mg 325 mg PO DAILY 06/03/20 11/26/21 History iron) tablet ipratropium bromide 21 mcg (0.03 2 spray INTRANASAL DAILY PRN 06/03/20 11/26/21 History %) nasal spray metoprolol succinate 50 mg 50 mg PO DAILY 06/03/20 11/26/21 History tablet,extended release 24 hr allopurinol 100 mg tablet 100 mg PO DAILY 11/26/21 11/26/21 History apixaban 5 mg tablet (Eliquis) 5 mg PO BID 11/26/21 11/26/21 History aspirin 81 mg tablet 81 mg PO DAILY 11/26/21 11/26/21 History atorvastatin 20 mg tablet 20 mg PO DAILY 11/26/21 11/26/21 History cholecalciferol (vitamin D3) 50 150 mcg PO DAILY 11/26/21 11/26/21 History mcg (2,000 unit) capsule (Vitamin D3) colchicine 0.6 mg tablet 0.6 mg PO DAILY 11/26/21 11/26/21 History levothyroxine 137 mcg tablet 137 mcg PO QAM 11/26/21 11/26/21 History semaglutide (Ozempic) 0.25 mg SUBCUT WK 11/26/21 11/26/21 History Patient History Medical History Asthma, moderate persistent Atrial fibrillation and flutter CKD (chronic kidney disease), stage III Depression DM type 2 (diabetes mellitus, type 2) History of tobacco abuse HTN (hypertension) Hypothyroidism Meniere disease RADHA (obstructive sleep apnea) Osteoarthritis of right knee Pulmonary emphysema Surgical History H/O sinus surgery History of cholecystectomy History of hysterectomy History of laminectomy History of repair of left rotator cuff Hx of neck surgery Family History Father Diabetes Social History Smoking Status: Former smoker Tobacco Type: Cigarettes packs per day: 1.5; Years Smoked: 20; Cigarettes Per Day: 30; Second Hand Exposure: No; Hx Alcohol Use: No Hx Substance Use: No Preferred Language: Mongolian Communication Ability: Effective 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 No acute distress. HEENT: Normocephalic, atraumatic. Pupils equal, round and reactive to light and accommodation. Extraocular muscles are intact. Anicteric sclera. Moist mucous membranes. Neck: No JVD. No bruit. Cardiovascular: irregularly irregular, unable to appreciate murmur, rub or gallop. Pulmonary: Clear to auscultation bilaterally. No rales, rhonchi, or wheezing. Abdomen: Bowel sounds x 4, soft. No rebound, guarding or tenderness. No organomegaly. Extremities: No clubbing, cyanosis or edema. +2 pedal pulses bilaterally. Skin: Warm and dry. Results & Data ([facility]) Vital Signs (Past 12 Hours) Vital Signs Temp Pulse Pulse Resp BP Pulse Ox 11/27/21 08:02 36.6 C 75 17 129/63 96 11/27/21 07:27 83 11/27/21 03:57 36.5 C 93 H 18 127/71 94 11/26/21 22:34 36.6 C 107 H 16 119/70 97 11/26/21 22:18 80
[2021-11-27] MEDS: DOXYCYCLINE HYCLATE 100 MG in DEXTROSE 5% 100 ML IV SCH ×2 (10:35→22:37)
[2021-11-27] MEDS: SODIUM CHLORIDE 0.9% 1000ML 1,000 ML IV SCH (10:35)
--- NOTE | 2021-11-27 14:58 | Hospitalist Progress Note ---
Date of Service November 27, 2021 Assessment & Plan (1) Atrial fibrillation with RVR: Plan: Pt was sent from PCP office for evaluation of tachycardia. EKG on admission showed atrial fibrillation with RVR. History of atrial fibrillation with rate controlled on digoxin and metoprolol Possible related to Pneumonia HR improving after IVF hydration in ED Cardiology on board Continue metoprolol, digoxin, Eliquis ECHO showed no LV wall motion abnormality with EF 60-65% Continue monitor closely (2) Community acquired pneumonia: Plan: CTA neck noted showed a 1.1 cm patchy airspace opacity partially visualized in the right upper lobe. Received IV ceftriaxone and azithromycin in the ER Due to prolonged QT azithromycin was changed to doxycycline Continue current antibiotic with ceftriaxone and doxycycline for now Blood culture pending Will need a follow-up CT chest is recommended in 3 months for reassessment and to rule out any pulmonary lesion (3) Elevated troponin: Plan: Troponin 0.07, likely due to demand ischemia in the setting of A. fib with RVR Trop trending down to 0.03 (normalized) Continue aspirin, statin, metoprolol and Eliquis Asymptomatic (4) Prolonged QT interval: Plan: QTC 523 on admission avoid QTC prolonging agents repeat EKG today showed QTC 436 Stable (5) Carotid artery aneurysm: Plan: Pt was complaint of headache CTA head and neck showed no hemorrhage, mass effect, or evidence of acute territorial ischemia by CT criteria. 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 CT head showed no hemorrhage, mass effect, or evidence of acute territorial ischemia by CT criteria. Stable (6) Abnormal urinalysis: Plan: Asymptomatic, likely contaminant Urine culture grew pinpoint for now, will follow cx Continue IV Rocephin for now (7) DM type 2 (diabetes mellitus, type 2): Plan: Hgb A1c 6.5 on 10/2021 Hold Ozempic and utilize NovoLog per protocol while hospitalized Continue monitor BS (8) CKD (chronic kidney disease), stage III: Plan: Baseline creatinine low to mid 1's Creatinine 1.2 today Continue monitor BMP (9) Hypothyroidism: Plan: Continue levothyroxine TSH 2.887 (10) Depression: Plan: Stable, continue home meds (11) DVT prophylaxis: Plan: On Eliquis Admission and Anticipated Discharge Date Admission Date: November 26, 2021 Subjective Pt was seen and examined for follow up of SOB and palpitation Lying in bed with no acute distress Pt said that she feels alot better this morning She saturated well on RA Denies any chest pain, palpitation, dizziness and SOB Review of Systems Review of Systems: All systems reviewed & are unremarkable except as noted in Subjective Physical Exam Physical Exam: General- No acute distress Head- atraumatic Eyes- PERRL, EOMI, ENT- oropharynx clear Neck- supple, no JVD Lungs- +diminished BS Heart- irregular rhythm Abdomen- normal bowel sounds, soft, nontender Extremities- no calf tenderness Neuro- alert, oriented x 3; PERRL, EOMI; no facial palsy; no dysarthria Skin- warm & dry Results & Data Results & Data ([facility]) Vital Signs (Past 12 Hours) Vital Signs Temp Pulse Pulse Resp BP Pulse Ox 11/27/21 10:49 36.5 C 73 18 130/79 97 11/27/21 08:02 36.6 C 75 17 129/63 96 11/27/21 07:27 83 11/27/21 03:57 36.5 C 93 H 18 127/71 94 (1) CKD (chronic kidney disease), stage III Chronic kidney disease stage 3 subtype: stage 3b (GFR 30-44) Qualified Code(s): N18.32 - Chronic kidney disease, stage 3b
[2021-11-27] MEDS ORDERED: cefTRIAXone SODIUM 1,000 MG in DEXTROSE 5% 50 ML IV SCH (18:00)
[2021-11-28] MEDS: SODIUM CHLORIDE 0.9% 1000ML 1,000 ML IV SCH ×2 (00:40→15:05)
[2021-11-28] MEDS ORDERED: MELATONIN 3 MG TAB PO PRN (01:24)
[2021-11-28] MEDS: LEVOTHYROXINE SODIUM 137 MCG TABLET PO SCH (06:07)
[2021-11-28] MEDS: INSULIN ASPART PER UNIT SC SCH ×3 (08:36→17:33)
[2021-11-28] MEDS: FOLIC ACID 1 MG TAB PO SCH (08:37)
[2021-11-28] MEDS: allopurinoL 100 MG TAB PO SCH (08:37)
[2021-11-28] MEDS: ASPIRIN 81 MG ECTAB PO SCH (08:37)
[2021-11-28] MEDS: APIXABAN 5 MG TABLET PO SCH (08:37)
[2021-11-28] MEDS: MONTELUKAST SODIUM 10 MG TABLET PO SCH (08:37)
[2021-11-28] MEDS: FERROUS SULFATE 325 MG TAB PO SCH (08:37)
[2021-11-28] MEDS: METOPROLOL SUCC 50MG EXT REL TAB PO SCH (08:37)
[2021-11-28] MEDS: ATORVASTATIN 20 MG TAB PO SCH (08:37)
[2021-11-28] MEDS: COLCHICINE 0.6 MG TAB PO SCH (08:37)
--- NOTE | 2021-11-28 10:16 | Cardiology Progress Note ---
Date of Service November 28, 2021 Assessment & Plan (1) Atrial flutter: (2) Elevated troponin: (3) Community acquired pneumonia: (4) DM type 2 (diabetes mellitus, type 2): (5) Pulmonary emphysema: (6) RADHA (obstructive sleep apnea): (7) HTN (hypertension): (8) Carotid artery aneurysm: Plan: newly discovered atrial flutter in the setting of CAP already on Eliquis for hx of paroxysmal atrial fibrillation rates are controlled first EKG showed QT prolongation but that has resolved with improvement of her rate minimal trop elevation likely due to demand ischemia echo shows preserved LV systolic function with severe LA enlargement cont outpatient cardiac meds would recommend outpt EP eval for atrial arrhythmias. Her device will be checked as an outpatient as well. will defer management of her CAP to primary team ok to d/c to home from cardiac standpoint Admission and Anticipated Discharge Date Admission Date: November 26, 2021 Subjective Patient seen and examined, chart reviewed. States that she is feeling significantly fatigued today and weak but denies any cardiac complaints of chest pain, shortness of breath, palpitations, lightheadedness, dizziness or syncope. Telemetry reviewed: Atrial flutter with controlled ventricular response Review of Systems Review of Systems: All systems reviewed & are unremarkable except as noted in HPI & below Physical Exam Physical Exam: General: Awake, alert and oriented x 3. No acute distress. HEENT: Normocephalic, atraumatic. Pupils equal, round and reactive to light and accommodation. Extraocular muscles are intact. Anicteric sclera. Moist mucous membranes. Neck: No JVD. No bruit. Cardiovascular: irregularly irregular, unable to appreciate murmur, rub or gallop. Pulmonary: Clear to auscultation bilaterally. No rales, rhonchi, or wheezing. Abdomen: Bowel sounds x 4, soft. No rebound, guarding or tenderness. No organomegaly. Extremities: No clubbing, cyanosis or edema. +2 pedal pulses bilaterally. Skin: Warm and dry. Results & Data ([facility]) Vital Signs (Past 12 Hours) Vital Signs Temp Pulse Pulse Resp BP Pulse Ox 11/28/21 07:20 36.6 C 78 16 127/74 93 11/28/21 03:12 36.6 C 80 16 121/70 93 11/28/21 00:00 102 H 11/27/21 22:45 36.7 C 70 18 123/72 92
[2021-11-28 10:45] LABS: Hematocrit (blood only) 32.4 % (37-47); Hemoglobin 10.8 g/dL (12.0-16.0); Mean Corpuscular Hemoglobin 29.6 pg (25-34); Mean Corpuscular Hgb Conc 33.3 g/dL (32-36); Mean Corpuscular Volume 88.8 fL (80-100); Mean Platelet Volume 10.3 fL (7.4-10.4); Platelet Count 181 K/uL (130-400); RDW Coefficient of Variation 14.4 % (11.5-14.5); RDW Standard Deviation 47.2 fL (36.4-46.3); Red Blood Count 3.65 M/uL (4.2-5.4); White Blood Count 9.64 K/uL (4.8-10.8)
[2021-11-28] MEDS: DOXYCYCLINE HYCLATE 100 MG in DEXTROSE 5% 100 ML IV SCH (10:50)
[2021-11-28 11:19] LABS: BUN Creatinine Ratio 18.9 (10-20); Calcium 9.1 mg/dl (8.5-10.1); Creatinine Clr Calc Pharmacy 37.5 ml/min; Est GFR (Non-African American) 49.2 ml/min
[2021-11-28] MEDS ORDERED: DIGOXIN 0.125 MG TAB PO SCH (16:00)
--- NOTE | 2021-11-28 16:06 | Discharge Summary ---
Date of Service November 28, 2021 Admission HPI Per Admitting Provider 81-year-old female with PMH DM type II, hypothyroidism, CKD stage III, RADHA intolerant to CPAP, moderate persistent asthma, pulmonary hypertension, HTN, chronic atrial fibrillation anticoagulated on Eliquis, JALEEL, and other problems to below who was referred to the ED by PCPs office for evaluation of tachycardia. Patient reports she had episode of a headache last week she describes starting at the top of her head and went down to her neck. She reports she developed a very similar episode yesterday that has been somewhat persistent. Patient also reports feeling generally weak and had a near syncopal episode in the shower today. Patient reports that she developed a cough productive for white/green sputum yesterday and also voice hoarseness. Denies shortness of breath and palpitations. No fevers or chills. Reports a poor appetite however no abdominal pain, nausea, vomiting, diarrhea. Denies urinary symptoms. In the ED, patient was found to be in atrial fibrillation with RVR. She was given IVF with improvement in her symptoms. Labs show WBC 17 K, troponin 0.07. EKG shows atrial fibrillation rate 123, prolonged QT at 523, ST depressions in the lateral leads. BP stable. Head CT, head and neck CTAs unremarkable for acute intracranial findings however neck CTA showed 1.1 cm patchy airspace opacity partially visualized in the right upper lobe. Patient was also given IV Tylenol, p.o. azithromycin, IV ceftriaxone. Admission Exam Per Admitting Provider General- No acute distress Head- atraumatic Eyes- PERRL, EOMI, ENT- oropharynx clear Neck- supple, no JVD Lungs- +diminished BS Heart- irregular rhythm Abdomen- normal bowel sounds, soft, nontender Extremities- no calf tenderness Neuro- alert, oriented x 3; PERRL, EOMI; no facial palsy; no dysarthria Skin- warm & dry Principal Diagnosis Atrial flutter: Atrial fibrillation Community acquired pneumonia: Elevated troponin: Prolonged QT interval: Carotid artery aneurysm: DM type 2 (diabetes mellitus, type 2): CKD (chronic kidney disease), stage III: Hypothyroidism: Depression: Discharge Exam General- No acute distress Head- atraumatic Eyes- PERRL, EOMI, ENT- oropharynx clear Neck- supple, no JVD Lungs- +diminished BS Heart- irregular rhythm Abdomen- normal bowel sounds, soft, nontender Extremities- no calf tenderness Neuro- alert, oriented x 3; PERRL, EOMI; no facial palsy; no dysarthria Skin- warm & dry Discharge Data Allergies Allergy/AdvReac Type Severity Reaction Status Date / Time Sulfa (Sulfonamide Allergy Severe Severe Verified 11/26/21 19:26 Antibiotics) rxn: rash and hives celecoxib Allergy Intermediate Rash/Hives/ Verified 11/26/21 19:26 Itching. cephalexin Allergy Intermediate Rash/Hives/ Verified 11/26/21 19:26 Itching. furosemide Allergy Intermediate Rash/Hives/ Verified 11/26/21 19:26 Itching. gabapentin Allergy Intermediate Rash/Hives/ Verified 11/26/21 19:26 Itching. pregabalin Allergy Intermediate Rash/Hives/ Verified 11/26/21 19:26 Itching. meclizine Allergy Unknown Unknown Verified 11/26/21 19:26 methylprednisolone Allergy Unknown Rash/Hives/ Verified 11/26/21 19:26 Itching. Penicillins Allergy Unknown Unknown. Verified 11/26/21 19:26 prednisone Allergy Unknown Rash/Hives/ Verified 11/26/21 19:26 Itching. vancomycin Allergy Unknown Jodi Verified 11/26/21 19:27 syn. . nickel Allergy Unknown Verified 11/26/21 19:27 dexamethasone AdvReac Intermediate Steroid Verified 11/26/21 19:27 psychosis. Consultations 11/26/21 17:37 ED Decision to Admit Stat 11/27/21 08:00 Consult Cardiology Routine Ordered Studies 11/26/21 15:37 CT angio head w con Stat CT angio neck with con Stat CT head/brain wo con Stat XR chest 1V portable CLINICAL HISTORY: Cough. COMPARISON STUDY: Chest radiograph July 29, 2021. FINDINGS: Lung volumes are normal. Lungs are clear. There is no pneumothorax or pleural effusion. Cardiac size is stable. Mediastinal contours are normal. There is no evidence for pulmonary edema. Postoperative finding within the cervical spine are incidentally noted. IMPRESSION: No acute cardiopulmonary findings. ACT 112: Negative or not required by law. Electronically signed by: Otoniel Lemus M.D. 11/26/2021 4:16 PM Dictated:11/26/21 1615 Transcribed: 11/26/[address] OF THE BRAIN; CT ANGIOGRAM OF THE BRAIN; CT ANGIOGRAM OF THE NECK CLINICAL HISTORY: Atypical headache. COMPARISON STUDY: CT of the brain dated 01/14/2018. MR angiogram of the brain dated 03/19/2013. Carotid artery ultrasound dated 03/19/2013. TECHNIQUE: Unenhanced axial CT scan of the brain is performed. Subsequently, following the IV administration of 120 of Optiray 320, CT angiogram of the head and neck was performed from the aortic arch to the vertex. Images are reviewed in the axial, sagittal, and coronal planes. 3-D MIPS images are created and assessed. IV contrast was administered without complication. All measurements were calculated based on NASCET criteria. A dose lowering technique was utilized adhering to the principles of ALARA. The neck angiogram is degraded by streak artifact from extensive metallic spinal hardware. CT DOSE: 1010.80 mGy.cm FINDINGS: Brain parenchyma: There is age-related involutional change noting mild subcortical and periventricular microangiopathic disease. There is no hemorrhage, mass effect, or evidence of acute territorial ischemia by CT criteria. There is no evidence of enhancing mass lesion on the angiogram phase images. The ventricles, sulci, and cisterns are prominent secondary to involutional change. Rosario-white matter differentiation is preserved. No extra- axial fluid collection is seen. Thoracic aorta: There is atherosclerotic calcification of the thoracic aorta. Visualized portions of the thoracic aorta are normal in caliber. The aortic arch demonstrates standard 3-vessel anatomy. Right carotid arterial system: The right common carotid artery is widely patent, as are the right internal and external carotid arteries. Left carotid arterial system: The left common carotid artery is widely patent, as are the left internal and external carotid arteries. Mild calcified plaque is noted in the carotid bulb. Vertebral arteries: The vertebral arteries are widely patent bilaterally and codominant. Subclavian arteries: Widely patent bilaterally. Intracranial vasculature: There is atherosclerotic calcification of the cavernous carotid and vertebral arteries. The internal carotid arteries are patent at the skull base, as are the anterior and middle cerebral arteries bilaterally. The vertebrobasilar system and posterior cerebral arteries are widely patent. The vertebral arteries are codominant. 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 No additional aneurysm is identified. No high-grade stenosis or focal vessel cough is seen throughout the intracranial circulation. Jugular veins: Patent bilaterally. Dural sinuses: Patent. Lung apices: Emphysematous change is noted in the upper lobes. An indeterminant 1.1 cm patchy opacity is partially visualized in the right upper lobe on image #1. Soft tissues: The visualized pharyngeal soft tissues are normal in appearance noting angiographic phase technique. The oropharyngeal airway appears widely patent. The thyroid gland is enlarged and heterogeneous. The salivary glands are normal in appearance. No cervical lymphadenopathy is seen. Skeletal structures: The skeletal structures are osteopenic. The calvarium appears intact. There is advanced multilevel cervical spondylosis with extensive postoperative change. No lytic or blastic lesion is seen. Orbits: The bony orbits are intact. Orbital contents are normal as visualized noting bilateral ocular lens implants. Sinuses and mastoids: Findings suggest previous paranasal sinus surgery. The paranasal sinuses are clear. The mastoid air cells are well pneumatized. IMPRESSION: 1. There is no hemorrhage, mass effect, or evidence of acute territorial ischemia by CT criteria. 2. 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 3. Otherwise unremarkable CT angiogram of the brain. 4. Unremarkable CT angiogram of the neck. 5. Emphysema. 6. There is a 1.1 cm patchy airspace opacity partially visualized in the right upper lobe. This could be on an infectious/inflammatory basis and clinical correlation will be required. A follow-up chest CT is recommended in 3 months time for reassessment and to exclude the possibility of underlying pulmonary lesion. ACT 112: Positive. There are findings on this exam that require communication between the performing entity and the patient following Patient Test Result Information Act ([place] Act 112) guidelines. Electronically signed by: Jay Sandoval M.D. 11/26/2021 5:09 PM Dictated:11/26/217 Transcribed: 11/26/[address] OF THE BRAIN; CT ANGIOGRAM OF THE BRAIN; CT ANGIOGRAM OF THE NECK CLINICAL HISTORY: Atypical headache. COMPARISON STUDY: CT of the brain dated 01/14/2018. MR angiogram of the brain dated 03/19/2013. Carotid artery ultrasound dated 03/19/2013. TECHNIQUE: Unenhanced axial CT scan of the brain is performed. Subsequently, following the IV administration of 120 of Optiray 320, CT angiogram of the head and neck was performed from the aortic arch to the vertex. Images are reviewed in the axial, sagittal, and coronal planes. 3-D MIPS images are created and assessed. IV contrast was administered without complication. All measurements were calculated based on NASCET criteria. A dose lowering technique was utilized adhering to the principles of ALARA. The neck angiogram is degraded by streak artifact from extensive metallic spinal hardware. CT DOSE: 1010.80 mGy.cm FINDINGS: Brain parenchyma: There is age-related involutional change noting mild subcortical and periventricular microangiopathic disease. There is no hemorrhage, mass effect, or evidence of acute territorial ischemia by CT criteria. There is no evidence of enhancing mass lesion on the angiogram phase images. The ventricles, sulci, and cisterns are prominent secondary to involutional change. Rosario-white matter differentiation is preserved. No extra- axial fluid collection is seen. Thoracic aorta: There is atherosclerotic calcification of the thoracic aorta. Visualized portions of the thoracic aorta are normal in caliber. The aortic arch demonstrates standard 3-vessel anatomy. Right carotid arterial system: The right common carotid artery is widely patent, as are the right internal and external carotid arteries. Left carotid arterial system: The left common carotid artery is widely patent, as are the left internal and external carotid arteries. Mild calcified plaque is noted in the carotid bulb. Vertebral arteries: The vertebral arteries are widely patent bilaterally and codominant. Subclavian arteries: Widely patent bilaterally. Intracranial vasculature: There is atherosclerotic calcification of the cavernous carotid and vertebral arteries. The internal carotid arteries are patent at the skull base, as are the anterior and middle cerebral arteries bilaterally. The vertebrobasilar system and posterior cerebral arteries are widely patent. The vertebral arteries are codominant. 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 No additional aneurysm is identified. No high-grade stenosis or focal vessel cough is seen throughout the intracranial circulation. Jugular veins: Patent bilaterally. Dural sinuses: Patent. Lung apices: Emphysematous change is noted in the upper lobes. An indeterminant 1.1 cm patchy opacity is partially visualized in the right upper lobe on image #1. Soft tissues: The visualized pharyngeal soft tissues are normal in appearance noting angiographic phase technique. The oropharyngeal airway appears widely patent. The thyroid gland is enlarged and heterogeneous. The salivary glands are normal in appearance. No cervical lymphadenopathy is seen. Skeletal structures: The skeletal structures are osteopenic. The calvarium appears intact. There is advanced multilevel cervical spondylosis with extensive postoperative change. No lytic or blastic lesion is seen. Orbits: The bony orbits are intact. Orbital contents are normal as visualized noting bilateral ocular lens implants. Sinuses and mastoids: Findings suggest previous paranasal sinus surgery. The paranasal sinuses are clear. The mastoid air cells are well pneumatized. IMPRESSION: 1. There is no hemorrhage, mass effect, or evidence of acute territorial ischemia by CT criteria. 2. 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 3. Otherwise unremarkable CT angiogram of the brain. 4. Unremarkable CT angiogram of the neck. 5. Emphysema. 6. There is a 1.1 cm patchy airspace opacity partially visualized in the right upper lobe. This could be on an infectious/inflammatory basis and clinical correlation will be required. A follow-up chest CT is recommended in 3 months time for reassessment and to exclude the possibility of underlying pulmonary lesion. ACT 112: Positive. There are findings on this exam that require communication between the performing entity and the patient following Patient Test Result Information Act ([place] Act 112) guidelines. Electronically signed by: Jay Sandoval M.D. 11/26/2021 5:09 PM Dictated:11/26/21 1657 Transcribed: 11/26/211656 XR chest 1V portable CLINICAL HISTORY: Cough. COMPARISON STUDY: Chest radiograph July 29, 2021. FINDINGS: Lung volumes are normal. Lungs are clear. There is no pneumothorax or pleural effusion. Cardiac size is stable. Mediastinal contours are normal. There is no evidence for pulmonary edema. Postoperative finding within the cervical spine are incidentally noted. IMPRESSION: No acute cardiopulmonary findings. ACT 112: Negative or not required by law. Electronically signed by: Otoniel Lemus M.D. 11/26/2021 4:16 PM Dictated:11/26/21 1615 Transcribed: 11/26/21 1615 Hospital Course (1) Atrial fibrillation with RVR: Pt was sent from PCP office for evaluation of tachycardia. EKG on admission showed atrial fibrillation with RVR. History of atrial fibrillation with rate controlled on digoxin and metoprolol Possible related to Pneumonia HR improving after IVF hydration in ED Cardiology on board Continue metoprolol, digoxin, Eliquis ECHO showed no LV wall motion abnormality with EF 60-65% Clinically stable OK from cardiology standpoint to discharge home (2) Community acquired pneumonia: CTA neck noted showed a 1.1 cm patchy airspace opacity partially visualized in the right upper lobe. Received IV ceftriaxone and azithromycin in the ER Due to prolonged QT azithromycin was changed to doxycycline Continue current antibiotic with ceftriaxone and doxycycline for now Blood culture pending Will need a follow-up CT chest is recommended in 3 months for reassessment and to rule out any pulmonary lesion (3) Elevated troponin: Troponin 0.07, likely due to demand ischemia in the setting of A. fib with RVR Trop trending down to 0.03 (normalized) Continue aspirin, statin, metoprolol and Eliquis Asymptomatic (4) Prolonged QT interval: QTC 523 on admission avoid QTC prolonging agents repeat EKG today showed QTC 436 Stable (5) Carotid artery aneurysm: Pt was complaint of headache CTA head and neck showed no hemorrhage, mass effect, or evidence of acute territorial ischemia by CT criteria. 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 CT head showed no hemorrhage, mass effect, or evidence of acute territorial ischemia by CT criteria. Stable (6) Abnormal urinalysis: Asymptomatic, likely contaminant Urine culture grew multiple organism ( Mostly contamination ) Continue IV Rocephin for now (7) DM type 2 (diabetes mellitus, type 2): Hgb A1c 6.5 on 10/2021 Hold Ozempic and utilize NovoLog per protocol while hospitalized Continue monitor BS (8) CKD (chronic kidney disease), stage III: Baseline creatinine low to mid 1's Creatinine 1.2 today Continue monitor BMP (9) Hypothyroidism: Continue levothyroxine TSH 2.887 (10) Depression: Stable, continue home meds (11) DVT prophylaxis: On Eliquis Total Time Total Time Spent Total Time Spent (In Minutes): 35 minutes Discharge Plan Discharge Items Patient Disposition: Home - Self-Care Reason For Visit: AFIB RVR, PNEUMONIA Discharge Diagnosis: Atrial flutter: Atrial fibrillation Community acquired pneumonia: Elevated troponin: Prolonged QT interval: Carotid artery aneurysm: DM type 2 (diabetes mellitus, type 2): CKD (chronic kidney disease), stage III: Hypothyroidism: Depression: Activity: Resume your previous activity Non-emergency contact: Primary Care Provider and Crystal Report Developer Call non-emergency contact if: you have any medication questions and your symptoms worsen Follow-up/Referrals: Florentin Calvo, DO [Primary Care Provider] - Diet: Carb Consistent or DM2 and Heart Healthy Addtl Attending Provider Instructions: Follow up with your primary care provider within 1 week Follow up with electrophysiology cardiology outpatient to evaluate for atrial arrhythmia. Complete the course of the antibiotic with doxycycline You will need a follow-up CT chest is recommended in 3 months for reassessment and to rule out any pulmonary lesion since a 1.1 cm patchy opacity was seen in the right upper lung (Your provider will order it) Fall precaution Seek medical attention if your symptoms reoccur Pending Studies at Discharge: No Stand-Alone Forms: My [facility] [employer], Smoking Cessation Medications and DC Order Prescriptions: New doxycycline hyclate 100 mg capsule 100 mg PO BID 5 Days Qty: 10 RF: 0 Continued lansoprazole 15 mg capsule,delayed release(DR/EC) 15 mg PO DAILY PRN (Reason: heart burn) RF: 0 montelukast 10 mg tablet 10 mg PO DAILY RF: 0 folic acid 1 mg tablet 1 mg PO DAILY RF: 0 alprazolam 0.5 mg tablet 0.5 mg PO QID PRN (Reason: Anxiety) RF: 0 venlafaxine 150 mg capsule,extended release 24hr 150 mg PO DAILY Qty: 30 RF: 0 metoprolol succinate 50 mg tablet extended release 24 hr 50 mg PO DAILY RF: 0 ferrous sulfate 325 mg (65 mg iron) Tablet 325 mg PO DAILY RF: 0 digoxin 125 mcg (0.125 mg) tablet 125 mcg PO 3XWK RF: 0 ipratropium bromide 0.03 % spray,non-aerosol 2 spray INTRANASAL DAILY PRN (Reason: Sinus Symptoms) RF: 0 levothyroxine 137 mcg tablet 137 mcg PO QAM RF: 0 atorvastatin 20 mg tablet 20 mg PO DAILY RF: 0 allopurinol 100 mg tablet 100 mg PO DAILY RF: 0 aspirin 81 mg Tablet 81 mg PO DAILY RF: 0 colchicine 0.6 mg tablet 0.6 mg PO DAILY RF: 0 cholecalciferol (vitamin D3) [Vitamin D3] 50 mcg (2,000 unit) Capsule 150 mcg PO DAILY RF: 0 Eliquis 5 mg tablet 5 mg PO BID RF: 0 Ozempic 0.25 mg or 0.5 mg(2 mg/1.5 mL) Pen Injector 0.25 mg SUBCUT WK RF: 0 Discharge Orders: Discharge Order (Routine); Ordered 11/28/21 Ordered By: Rosie Bahena Admission Data Admit Date/Time: 11/26/21 17:55 Attending Provider: Rosie Bahena Admit Provider: Buster Mcghee Primary Care Provider: Florentin Calvo Other Providers: Buster Mcghee ; Pritesh Dupont ; Hossein Snowden ; Nish Chavarria ; Isaías Márquez ; Stephen Hewitt ; Doe Calero ; Abigail Goncalves ; Carmenza Swann ; Emelina Aden ; William Simpson Other Interventions: Discharge Summary Assessment (RN) Last Done: 11/28/21 16:39
--- NOTE | 2021-11-29 07:01 | Electrocardiogram Report ---
Test Reason : Blood Pressure : / mmHG Vent. Rate : 080 BPM Atrial Rate : 357 BPM P-R Int : 000 ms QRS Dur : 076 ms QT Int : 388 ms P-R-T Axes : 000 012 -07 degrees QTc Int : 447 ms Atrial flutter with variable A-V block Nonspecific ST abnormality Abnormal ECG When compared with ECG of 27-NOV-2021 06:03, Atrial flutter is now Present Confirmed by Brian Leong ([id number]) on 11/29/2021 7:00:50 AM Referred By: REFERRED SELF Confirmed By:Brian Leong
== END 2021-11-28 17:10 | disposition home or self-care (01) | DRG 308 ==
LOC: ED 14:28 → SUATTDRO 17:55 → 2S 17:55
DX: Z83.3 Family history of diabetes mellitus; N18.30 Chronic kidney disease, stage 3 unspecified; Z79.890 Hormone replacement therapy; J43.9 Emphysema, unspecified; E03.9 Hypothyroidism, unspecified; I12.9 Hypertensive chronic kidney disease with stage 1 through stage 4 chronic kidney disease, or unspecified chronic kidney disease; Z88.8 Allergy status to other drugs, medicaments and biological substances; I48.19 Other persistent atrial fibrillation; F32.A Depression, unspecified; I67.1 Cerebral aneurysm, nonruptured; Z79.01 Long term (current) use of anticoagulants; I48.92 Unspecified atrial flutter; I24.8 Other forms of acute ischemic heart disease; Z88.0 Allergy status to penicillin; J18.9 Pneumonia, unspecified organism; E11.22 Type 2 diabetes mellitus with diabetic chronic kidney disease; Z79.82 Long term (current) use of aspirin; Z88.2 Allergy status to sulfonamides; E86.0 Dehydration; Z87.891 Personal history of nicotine dependence

== ENCOUNTER 2022-03-05 10:54 | Inpatient (IN) ==
[2022-03-05] MEDS ORDERED: ONDANSETRON INJ 2 MG/ML 2 ML VIAL IV STA (11:03)
[2022-03-05] MEDS ORDERED: ERTAPENEM SODIUM 10 ML IV STA (11:03)
[2022-03-05] MEDS ORDERED: SODIUM CHLORIDE 0.9% 1000ML 1,000 ML IV SCH (11:15)
--- NOTE | 2022-03-05 11:20 | Emergency Department Note ---
Impression & Plan Hypotension, Near syncope, Leukocytosis, Nausea, COVID-19 ED Provider Note NAME: LORI MORALES AGE: 81 SEX: F : 1940 ARRIVES VIA: Walk-In INFORMANT: [Patient] ED PROVIDER(S): [Jay Whalen MD] CHIEF COMPLAINT: Near syncope HISTORY OF PRESENT ILLNESS: The patient is an 81-year-old female who states that she did not feel well last night. This morning, she felt worse. She was lightheaded dizzy and almost passed out. She was nauseated. She was short of breath. No chest pain or abdominal pain. No vomiting or diarrhea. No fever, cough or congestion. The patient cannot recall having felt like this before. She thought she might be in A. fib or a flutter as she has this history. REVIEW OF SYSTEMS: See HPI for pertinent positives and negatives. A total of ten systems were reviewed and were otherwise negative. PMHx/PSHx: See Below SOCIAL HISTORY: See Below. PHYSICAL EXAM: GENERAL: Patient is in no acute distress. HEENT: No acute trauma, normocephalic atraumatic, mucous membranes moist, no nasal congestion, no scleral icterus. NECK: No stridor, no adenopathy, no meningismus, trachea is midline. LUNGS: Clear to auscultation bilaterally, no wheeze, no rhonchi, breath sounds equal. HEART: Without murmurs gallops or rubs, regular rate and rhythm. ABDOMEN: Soft, nontender, bowel sounds positive, no peritonitis. EXTREMITIES: No cyanosis or edema, full range of motion of all the joints without pain or difficulty, no signs for acute trauma. NEUROLOGIC: Oriented x 3, no acute motor or sensory deficits, no focal weakness. SKIN: No rash, no jaundice, no diaphoresis. Pale. Rectal: Brown stool, heme-negative. DIFFERENTIAL DIAGNOSIS: Infection, sepsis, UTI, dehydration, metabolic abnormality, hypo/hyperglycemia, electrolyte disturbance, anemia, hypoxia, cardiac sources, dysrhythmia, intracerebral event, toxicologic issues, stroke, TIA, as well as other pathologies. EMERGENCY DEPARTMENT COURSE/PROCEDURES: ECG: Indication was weakness. The ECG shows a normal sinus rhythm with a rate of 81. LVH is present. There is some T wave inversion and subtle ST depression in the lateral leads consistent with LVH. There is no ST elevation. No PVCs. The QTc is 418. Compared to an ECG from 04 Jan 2022, sinus rhythm is now present. The ST and T wave changes appear more pronounced. Continuous Cardiac Monitoring: An order was placed for continuous cardiac monitoring. The monitor shows a rate of 84 with normal sinus rhythm. Critical Care Note: I have personally spent 42 minutes of critical care time in the direct management of this patient. This includes bedside care, interpretation of diagnostic studies, and testing, discussion with consultants, patient, and family members, and other required patient management activities. This 42 minutes is in excess of all separately billable procedures. MEDICAL DECISION MAKING: There is a mild leukocytosis, this could be consistent with infection. The patient is anemic. A rectal exam was performed the stool was brown and heme-ne gative. There is a normal platelet count. INR is slightly elevated at 1.2. There was some renal insufficiency/dehydration with a creatinine of 1.39. Lactic acid level was not elevated making severe sepsis less likely. There were a few subtle liver enzyme elevations. Procalcitonin level was not elevated. ECG shows a normal sinus rhythm, no acute ischemia. Cardiac enzyme testing x1 is slightly elevated. This elevation could be consistent with cardiac injury or potentially mismatch. Urinalysis did not show infection. Digoxin level was not toxic. COVID test returned positive. Influenza and RSV test were negative. Chest film did not show pneumonia or CHF. The patient presented near syncopal, weak and hypotensive. She was aggressively managed. The patient received 1.5 l of IV saline. She received IV Zofran and IV ertapenem. The patient is markedly improved. Blood pressure is adequate, her color has improved, she feels better. The patient presented hypotensive and weak. She was near syncopal. A hospital stay is warranted. I spoke with the patient and case management, the on-call hospitalist was consulted. Past Med/Surg History Medical History Asthma, moderate persistent Atrial fibrillation and flutter CKD (chronic kidney disease), stage III Depression Elevated brain natriuretic peptide (BNP) level History of tobacco abuse HTN (hypertension) Hypothyroidism Meniere disease RADHA (obstructive sleep apnea) Osteoarthritis of right knee Pneumonia Surgical History H/O sinus surgery History of cholecystectomy History of hysterectomy History of laminectomy History of repair of left rotator cuff Hx of neck surgery Family History Father Diabetes Social History Smoking Status: Former smoker Tobacco Type: Cigarettes packs per day: 1.5; Years Smoked: 20; Cigarettes Per Day: 30; Second Hand Exposure: No; Do You Dip or Chew Tobacco: No; Hx Alcohol Use: No Hx Substance Use: No Preferred Language: Citizen Of [place] Communication Ability: Effective Lime Boiler Required: No Beliefs That Will Affect Care: None Current Living Situation: Spouse Other Information That Helps Us Care for You: No Feels Safe at Home: Yes Safety Concerns: Feels Safe At This Time Assistive Devices: Cane, Glasses and Hearing Aid - Right Assistive Devices Comment: cpap recalled - no machine at home Allergies Allergies Allergy/AdvReac Type Severity Reaction Status Date / Time Sulfa (Sulfonamide Allergy Severe Severe Verified 03/05/22 11:36 Antibiotics) rxn: rash and hives celecoxib Allergy Intermediate Rash/Hives/ Verified 03/05/22 11:36 Itching. cephalexin Allergy Intermediate Rash/Hives/ Verified 03/05/22 11:36 Itching. furosemide Allergy Intermediate Rash/Hives/ Verified 03/05/22 11:36 Itching. gabapentin Allergy Intermediate Rash/Hives/ Verified 03/05/22 11:36 Itching. pregabalin Allergy Intermediate Rash/Hives/ Verified 03/05/22 11:36 Itching. meclizine Allergy Unknown Unknown Verified 03/05/22 11:36 methylprednisolone Allergy Unknown Rash/Hives/ Verified 03/05/22 11:36 Itching. Penicillins Allergy Unknown Unknown. Verified 03/05/22 11:36 prednisone Allergy Unknown Rash/Hives/ Verified 03/05/22 11:36 Itching. vancomycin Allergy Unknown Jodi Verified 03/05/22 11:36 syn. . nickel Allergy Unknown Verified 03/05/22 11:36 dexamethasone AdvReac Intermediate Steroid Verified 03/05/22 11:36 psychosis. Home Meds Home Medications Medication Instructions Recorded Confirmed alprazolam 0.5 mg tablet 0.5 mg PO QID PRN tab 04/08/19 03/05/22 folic acid 1 mg tablet 1 mg PO HS tab 04/08/19 03/05/22 lansoprazole 15 mg capsule,delayed 15 mg PO DAILY PRN cap 04/08/19 03/05/22 release montelukast 10 mg tablet 10 mg PO PM tab 04/08/19 03/05/22 venlafaxine 150 mg 150 mg PO QAM #30 cap 04/08/19 03/05/22 capsule,extended release 24 hr digoxin 125 mcg (0.125 mg) tablet 125 mcg PO 3XWK 06/03/20 03/05/22 ferrous sulfate 325 mg (65 mg 325 mg PO DAILY 06/03/20 03/05/22 iron) tablet ipratropium bromide 21 mcg (0.03 2 spray INTRANASAL DAILY PRN 06/03/20 03/05/22 %) nasal spray metoprolol succinate 50 mg 50 mg PO HS 06/03/20 03/05/22 tablet,extended release 24 hr allopurinol 100 mg tablet 100 mg PO HS 11/26/21 03/05/22 apixaban 5 mg tablet (Eliquis) 5 mg PO BID 11/26/21 03/05/22 atorvastatin 20 mg tablet 20 mg PO QAM 11/26/21 03/05/22 cholecalciferol (vitamin D3) 50 150 mcg PO QAM 11/26/21 03/05/22 mcg (2,000 unit) capsule (Vitamin D3) colchicine 0.6 mg tablet 0.6 mg PO QPM 11/26/21 03/05/22 levothyroxine 137 mcg tablet 137 mcg PO QAM 11/26/21 03/05/22 semaglutide (Ozempic) 0.25 mg SUBCUT WK 11/26/21 03/05/22 aspirin 81 mg tablet,delayed 81 mg PO HS 01/04/22 03/05/22 release topiramate 25 mg tablet 25 mg PO HS 03/05/22 03/05/22 Results & Data (ED) Vital Signs Vital Signs - 24 hr 03/05/22 10:54 03/05/22 11:08 03/05/22 11:22 Temperature 36.5 C Temperature Source Temporal Artery Scan Pulse Rate 84 Pulse Rate [Apical] 65 Pulse Rhythm [Apical] Pulse Strength [Apical] Respiratory Rate 16 18 Respiratory Effort / Characteristics Non-Labored Respiratory Depth Normal Respiratory Pattern Blood Pressure 61/38 L Blood Pressure [Left Arm] 122/58 L Blood Pressure Mean 45 Blood Pressure Mean [Left Arm] 79 Blood Pressure Position [Left Arm] Pulse Oximetry 94 100 97 Oxygen Delivery Method Room Air Room Air Room Air Sepsis Recent Fever Within 48 Hours No Sepsis New/Unexplained Change in Mental Status No Sepsis Action Taken by Nursing No Action Required 03/05/22 12:53 Temperature Temperature Source Pulse Rate Pulse Rate [Apical] 69 Pulse Rhythm [Apical] Regular Pulse Strength [Apical] Normal Respiratory Rate 16 Respiratory Effort / Characteristics Non-Labored Respiratory Depth Normal Respiratory Pattern Regular Blood Pressure Blood Pressure [Left Arm] 137/66 Blood Pressure Mean Blood Pressure Mean [Left Arm] 89 Blood Pressure Position [Left Arm] Lying Pulse Oximetry 92 Oxygen Delivery Method Room Air Sepsis Recent Fever Within 48 Hours Sepsis New/Unexplained Change in Mental Status Sepsis Action Taken by Alf Medications Current Medication List: was personally reviewed by me Laboratory Data Attestation: I reviewed the patient's lab results. Result diagrams: 03/05/22 11:05 03/05/22 11:05 Lab Results 03/05/22 03/05/22 03/05/22 Range/Units 11:05 11:05 11:05 WBC 11.54 H (4.8-10.8) K/ul RBC 3.07 L (3.93-5.22) M/uL Hgb 9.2 L (12.0-16.0) g/dl Hct 28.7 L (34.1-44.9) % MCV 93.5 (80.0-100.0) fL MCH 30.0 (25.0-34.0) pg MCHC 32.1 (32.0-36.0) g/dL RDW Std Deviation 53.6 H (36.4-46.3) fL RDW Coeff of Francisco Javier 15.8 H (11.5-14.5) % Plt Count 270 (130-400) K/uL MPV 11.1 (9.4-12.3) fL Immature Gran % (Auto) 0.8 % Neut % (Auto) 57.8 % Lymph % (Auto) 23.8 % [place] % (Auto) 10.4 % Eos % (Auto) 6.6 % Baso % (Auto) 0.6 % Neut # (Auto) 6.67 H (1.4-6.5) K/uL Lymph # (Auto) 2.75 (1.2-3.4) K/uL [place] # (Auto) 1.20 H (0.24-0.82) K/uL Eos # (Auto) 0.76 H (0-0.50) K/uL Baso # (Auto) 0.07 (0-0.2) K/uL Immature Gran # (Auto) 0.09 H (0.00-0.02) K/uL PT 12.4 H (9.0-12.0) Seconds INR 1.2 H (0.9-1.1) APTT 26.0 (21.0-31.0) Seconds PTT Ratio 0.9 Sodium 136 (136-145) mmol/L Potassium 4.7 (3.5-5.1) mmol/L Chloride 104 (98-107) mmol/L Carbon Dioxide 23 (21-32) mmol/L Anion Gap 9 (3-11) BUN 43 H (6-23) mg/dl Creatinine 1.39 H (0.6-1.2) mg/dl Est Cr Clr Drug Dosing 34.9 ml/min Est GFR ( Amer) 41.1 ml/min Est GFR (Non-Af Amer) 35.5 ml/min BUN/Creatinine Ratio 30.9 H (10-20) Glucose 197 H (70-99(Fasting)) mg/dl Lactate (0.4-2.0) mmol/L Calcium 9.2 (8.5-10.1) mg/dl Magnesium 1.7 (1.7-2.4) mg/dl Total Bilirubin 0.5 (0.2-1.0) mg/dl AST 46 H (13-39) U/L ALT 42 (7-52) U/L Alkaline Phosphatase 198 H (34-104) U/L Troponin I High Sens 22.9 H (0-14) pg/ml Total Protein 6.1 (6.0-8.3) gm/dl Albumin 3.7 (3.4-5.0) gm/dl Globulin 2.4 L (2.5-4.0) gm/dl Albumin/Globulin Ratio 1.5 (0.9-2) Procalcitonin (0-0.5) ng/ml Digoxin (0.8-2.0) ng/ml SARS-CoV-2 (PCR) Influenza Type A (PCR) Influenza Type B (PCR) RSV (RT-PCR) 03/05/22 03/05/22 03/05/22 Range/Units 11:05 11:30 11:30 WBC (4.8-10.8) K/ul RBC (3.93-5.22) M/uL Hgb (12.0-16.0) g/dl Hct (34.1-44.9) % MCV (80.0-100.0) fL MCH (25.0-34.0) pg MCHC (32.0-36.0) g/dL RDW Std Deviation (36.4-46.3) fL RDW Coeff of Francisco Javier (11.5-14.5) % Plt Count (130-400) K/uL MPV (9.4-12.3) fL Immature Gran % (Auto) % Neut % (Auto) % Lymph % (Auto) % [place] % (Auto) % Eos % (Auto) % Baso % (Auto) % Neut # (Auto) (1.4-6.5) K/uL Lymph # (Auto) (1.2-3.4) K/uL [place] # (Auto) (0.24-0.82) K/uL Eos # (Auto) (0-0.50) K/uL Baso # (Auto) (0-0.2) K/uL Immature Gran # (Auto) (0.00-0.02) K/uL PT (9.0-12.0) Seconds INR (0.9-1.1) APTT (21.0-31.0) Seconds PTT Ratio Sodium (136-145) mmol/L Potassium (3.5-5.1) mmol/L Chloride (98-107) mmol/L Carbon Dioxide (21-32) mmol/L Anion Gap (3-11) BUN (6-23) mg/dl Creatinine (0.6-1.2) mg/dl Est Cr Clr Drug Dosing ml/min Est GFR ( Amer) ml/min Est GFR (Non-Af Amer) ml/min BUN/Creatinine Ratio (10-20) Glucose (70-99(Fasting)) mg/dl Lactate 2.0 (0.4-2.0) mmol/L Calcium (8.5-10.1) mg/dl Magnesium (1.7-2.4) mg/dl Total Bilirubin (0.2-1.0) mg/dl AST (13-39) U/L ALT (7-52) U/L Alkaline Phosphatase (34-104) U/L Troponin I High Sens (0-14) pg/ml Total Protein (6.0-8.3) gm/dl Albumin (3.4-5.0) gm/dl Globulin (2.5-4.0) gm/dl Albumin/Globulin Ratio (0.9-2) Procalcitonin 0.15 (0-0.5) ng/ml Digoxin (0.8-2.0) ng/ml SARS-CoV-2 (PCR) Cancelled Influenza Type A (PCR) Cancelled Influenza Type B (PCR) Cancelled RSV (RT-PCR) Cancelled 03/05/22 03/05/22 Range/Units 12:00 12:30 WBC (4.8-10.8) K/ul RBC (3.93-5.22) M/uL Hgb (12.0-16.0) g/dl Hct (34.1-44.9) % MCV (80.0-100.0) fL MCH (25.0-34.0) pg MCHC (32.0-36.0) g/dL RDW Std Deviation (36.4-46.3) fL RDW Coeff of Francisco Javier (11.5-14.5) % Plt Count (130-400) K/uL MPV (9.4-12.3) fL Immature Gran % (Auto) % Neut % (Auto) % Lymph % (Auto) % [place] % (Auto) % Eos % (Auto) % Baso % (Auto) % Neut # (Auto) (1.4-6.5) K/uL Lymph # (Auto) (1.2-3.4) K/uL [place] # (Auto) (0.24-0.82) K/uL Eos # (Auto) (0-0.50) K/uL Baso # (Auto) (0-0.2) K/uL Immature Gran # (Auto) (0.00-0.02) K/uL PT (9.0-12.0) Seconds INR (0.9-1.1) APTT (21.0-31.0) Seconds PTT Ratio Sodium (136-145) mmol/L Potassium (3.5-5.1) mmol/L Chloride (98-107) mmol/L Carbon Dioxide (21-32) mmol/L Anion Gap (3-11) BUN (6-23) mg/dl Creatinine (0.6-1.2) mg/dl Est Cr Clr Drug Dosing ml/min Est GFR ( Amer) ml/min Est GFR (Non-Af Amer) ml/min BUN/Creatinine Ratio (10-20) Glucose (70-99(Fasting)) mg/dl Lactate (0.4-2.0) mmol/L Calcium (8.5-10.1) mg/dl Magnesium (1.7-2.4) mg/dl Total Bilirubin (0.2-1.0) mg/dl AST (13-39) U/L ALT (7-52) U/L Alkaline Phosphatase (34-104) U/L Troponin I High Sens (0-14) pg/ml Total Protein (6.0-8.3) gm/dl Albumin (3.4-5.0) gm/dl Globulin (2.5-4.0) gm/dl Albumin/Globulin Ratio (0.9-2) Procalcitonin (0-0.5) ng/ml Digoxin 0.7 L (0.8-2.0) ng/ml SARS-CoV-2 (PCR) POSITIVE A* Influenza Type A (PCR) Negative Influenza Type B (PCR) Negative RSV (RT-PCR) Negative Administered Medications Sodium Chloride (Nss 1000ml) 1,000 mls @ 100 mls/hr IV .Q10H JULIO CESAR Stop: 04/04/22 15:50 Last Admin: 03/05/22 16:27 Dose: 100 mls/hr Documented by: [id number] Discontinued Medications Sodium Chloride (Nss 1000ml) 1,000 mls @ 999 mls/hr IV .Q1H1M JULIO CESAR Stop: 03/05/22 12:15 Last Infusion: 03/05/22 12:30 Dose: 0 mls/hr Documented by: [id number] Admin: 03/05/22 11:27 Dose: 999 mls/hr Documented by: [id number] Ertapenem (Invanz) 10 mls @ 2 mls/min IV NOW STA Stop: 03/05/22 11:07 Last Admin: 03/05/22 11:55 Dose: 2 mls/min Documented by: [id number] Sodium Chloride (Nss 1000ml) 500 mls @ 999 mls/hr IV .Q31M ONE Stop: 03/05/22 13:11 Last Infusion: 03/05/22 14:16 Dose: 0 mls/hr Documented by: [id number] Admin: 03/05/22 12:53 Dose: 999 mls/hr Documented by: [id number] Ondansetron HCl (Ondansetron Inj 2 Mg/Ml 2 Ml Vial) 4 mg IV NOW STA Stop: 03/05/22 11:04 Last Admin: 03/05/22 11:26 Dose: 4 mg Documented by: [id number] Imaging Data Radiologist's Impression: Chest X-Ray 03/05/22 11:03 XR chest 1V portable CLINICAL HISTORY: SEPSIS TECHNIQUE: Single frontal radiograph of the chest was obtained. Comparison: Comparison is made to chest radiograph 01/04/2022 FINDINGS: Cervical spinal fixation hardware is seen. The aorta is tortuous. The remainder of the cardiomediastinal silhouette is unremarkable. The lungs are clear. No evidence of pleural effusion or pneumothorax. IMPRESSION: No acute abnormalities and in particular no evidence of pneumonia. ACT 112: Negative or not required by law. Electronically signed by: Christian Murray M.D. 03/05/2022 12:02 PM Discharge Plan Visit Data Chief Complaint: Syncope (Near Syncope) Stated Complaint: LIGHTHEADED ED Provider: Jay Whalen Discharge Problem: Hypotension, Near syncope, Leukocytosis, Nausea, COVID-19 Patient Disposition: Admitted As Inpatient Condition: Fair Discharge Instructions Interventions: ED Discharge Assessment Last Done: 03/05/22 15:10
[2022-03-05 11:22] LABS: Basophils # (auto) 0.07 K/uL (0-0.2); Basophils % (auto) 0.6 %; Eosinophils # (auto) 0.76 K/uL (0-0.50); Eosinophils % (auto) 6.6 %; Hematocrit (blood only) 28.7 % (34.1-44.9); Hemoglobin 9.2 g/dl (12.0-16.0); Immature Granulocytes # (auto) 0.09 K/uL (0.00-0.02); Immature Granulocytes % (auto) 0.8 %; Lymphocytes # (auto) 2.75 K/uL (1.2-3.4); Lymphocytes % (auto) 23.8 %; Mean Corpuscular Hgb Conc 32.1 g/dL (32.0-36.0); Mean Corpuscular Volume 93.5 fL (80.0-100.0); Mean Platelet Volume 11.1 fL (9.4-12.3); Monocytes % (auto) 10.4 %; Neutrophils # (auto) 6.67 K/uL (1.4-6.5); Neutrophils % (auto) 57.8 %; Platelet Count 270 K/uL (130-400); RDW Coefficient of Variation 15.8 % (11.5-14.5); RDW Standard Deviation 53.6 fL (36.4-46.3); Red Blood Count 3.07 M/uL (3.93-5.22); White Blood Count 11.54 K/ul (4.8-10.8)
[2022-03-05 11:32] LABS: INR 1.2 (0.9-1.1); Partial Thromboplastin Ratio 0.9; Prothrombin Time 12.4 Seconds (9.0-12.0)
[2022-03-05 11:46] LABS: Albumin Globulin Ratio 1.5 (0.9-2); Albumin Level 3.7 gm/dl (3.4-5.0); BUN Creatinine Ratio 30.9 (10-20); Bilirubin,Total 0.5 mg/dl (0.2-1.0); Calcium 9.2 mg/dl (8.5-10.1); Creatinine Clr Calc Pharmacy 34.9 ml/min; Est GFR (African American) 41.1 ml/min; Est GFR (Non-African American) 35.5 ml/min; Globulin 2.4 gm/dl (2.5-4.0); Magnesium 1.7 mg/dl (1.7-2.4); Potassium 4.7 mmol/L (3.5-5.1); Total Protein 6.1 gm/dl (6.0-8.3)
[2022-03-05 11:52] LABS: Troponin I High Sensitivity 22.9 pg/ml (0-14)
--- NOTE | 2022-03-05 12:03 | XRay Report ---
XR chest 1V portable CLINICAL HISTORY: SEPSIS TECHNIQUE: Single frontal radiograph of the chest was obtained. Comparison: Comparison is made to chest radiograph 01/04/2022 FINDINGS: Cervical spinal fixation hardware is seen. The aorta is tortuous. The remainder of the cardiomediasti nal silhouette is unremarkable. The lungs are clear. No evidence of pleural effusion or pneumothorax. IMPRESSION: No acute abnormalities and in particular no evidence of pneumonia. ACT 112: Negative or not required by law. Electronically signed by: Christian Murray M.D. 03/05/2022 12:02 PM
--- NOTE | 2022-03-05 12:14 | Electrocardiogram Report ---
Test Reason : Blood Pressure : / mmHG Vent. Rate : 081 BPM Atrial Rate : 081 BPM P-R Int : 152 ms QRS Dur : 072 ms QT Int : 360 ms P-R-T Axes : 055 039 -72 degrees QTc Int : 418 ms Normal sinus rhythm Left ventricular hypertrophy with repolarization abnormality Abnormal ECG When compared with ECG of 04-JAN-2022 16:13, Sinus rhythm has replaced Atrial flutter Nonspecific T wave abnormality no longer evident in Anterior leads QT has lengthened Confirmed by Elmer Dahl ([id number]) on 03/05/2022 12:14:29 PM Referred By: Florentin Calvo Confirmed By:Royce Dahl
[2022-03-05] MEDS ORDERED: SODIUM CHLORIDE 0.9% 1000ML 500 ML IV ONE (12:41)
--- NOTE | 2022-03-05 12:56 | History & Physical Report ---
Date of Service March 05, 2022 Assessment & Plan (1) Near syncope: (2) TIFFANY (acute kidney injury): (3) Dehydration: Plan: Near syncope -Appears most consistent with dehydration due to poor appetite -will obtain 1 set orthostatic vital signs -TTE from 11/2021 with normal EF, does not need repeat unless clinical change -check TSH TIFFANY -due to dehydration, poor appetite -s/p 1.5L NSS in ER with improvement in blood pressure. Will repeat BMP tomorrow Anorexia -poor appetite related to recent covid 19 infection. Suggested appetite stimulant but patient undecided -[place] diet, encourage oral intake PAF -Eliquis, Metoprolol Asthma -well controlled, continue home medications Chronic Anemia -continue iron, folic acid. She has an appt with GI for EGD next week. If Hb worsens, would consult GI here for consideration of IP EGD. DVT ppx -already on Eliquis Code status -Full, discussed with patient Disposition -PT evalu -Observation -PCU level of care History of Present Illness Chief Complaint: Feeling unwell Primary Care Provider: Florentin Calvo DO Ms Inga Barakat is a 81 year old female with history of PAF on digoxin and Eliquis, asthma, meniere's disease, hypothyroidism and history of Covid 19 infection presents today feeling unwell with near syncope at home. Upon arrival here, her vitals are unremarkable, labwork significnat for Cr of 1.39 (baseline 1), WBC 11.5, Hb 9.2 (baseline 10-12). In triage, her BP was noted to be low (SBP 60s) and improved after NSS administration. ER course- Ertepenem, 1.5L NSS, Zofran 4mg IV Patient reports feeling weak, having a poor appetite and intermittent light headedness for past several months since she was diagnosed with Covid 19 in December. Patient reports her stool appears darker than usual (she takes daily iron), rectal exam in ER revealed dark brown stool that was heme negative She denies diarrhea, vomiting, chest pain/shortness of breath, rash, ulcer, or urinary symptoms. Allergies Allergy/AdvReac Type Severity Reaction Status Date / Time Sulfa (Sulfonamide Allergy Severe Severe Verified 03/05/22 11:36 Antibiotics) rxn: rash and hives celecoxib Allergy Intermediate Rash/Hives/ Verified 03/05/22 11:36 Itching. cephalexin Allergy Intermediate Rash/Hives/ Verified 03/05/22 11:36 Itching. furosemide Allergy Intermediate Rash/Hives/ Verified 03/05/22 11:36 Itching. gabapentin Allergy Intermediate Rash/Hives/ Verified 03/05/22 11:36 Itching. pregabalin Allergy Intermediate Rash/Hives/ Verified 03/05/22 11:36 Itching. meclizine Allergy Unknown Unknown Verified 03/05/22 11:36 methylprednisolone Allergy Unknown Rash/Hives/ Verified 03/05/22 11:36 Itching. Penicillins Allergy Unknown Unknown. Verified 03/05/22 11:36 prednisone Allergy Unknown Rash/Hives/ Verified 03/05/22 11:36 Itching. vancomycin Allergy Unknown Jodi Verified 03/05/22 11:36 syn. . nickel Allergy Unknown Verified 03/05/22 11:36 dexamethasone AdvReac Intermediate Steroid Verified 03/05/22 11:36 psychosis. Home Medications Medication Instructions Recorded Confirmed Type alprazolam 0.5 mg tablet 0.5 mg PO QID PRN tab 04/08/19 03/05/22 History folic acid 1 mg tablet 1 mg PO HS tab 04/08/19 03/05/22 History lansoprazole 15 mg capsule,delayed 15 mg PO DAILY PRN cap 04/08/19 03/05/22 History release montelukast 10 mg tablet 10 mg PO PM tab 04/08/19 03/05/22 History venlafaxine 150 mg 150 mg PO QAM #30 cap 04/08/19 03/05/22 History capsule,extended release 24 hr digoxin 125 mcg (0.125 mg) tablet 125 mcg PO 3XWK 06/03/20 03/05/22 History ferrous sulfate 325 mg (65 mg 325 mg PO DAILY 06/03/20 03/05/22 History iron) tablet ipratropium bromide 21 mcg (0.03 2 spray INTRANASAL DAILY PRN 06/03/20 03/05/22 History %) nasal spray metoprolol succinate 50 mg 50 mg PO HS 06/03/20 03/05/22 History tablet,extended release 24 hr allopurinol 100 mg tablet 100 mg PO HS 11/26/21 03/05/22 History apixaban 5 mg tablet (Eliquis) 5 mg PO BID 11/26/21 03/05/22 History atorvastatin 20 mg tablet 20 mg PO QAM 11/26/21 03/05/22 History cholecalciferol (vitamin D3) 50 150 mcg PO QAM 11/26/21 03/05/22 History mcg (2,000 unit) capsule (Vitamin D3) colchicine 0.6 mg tablet 0.6 mg PO QPM 11/26/21 03/05/22 History levothyroxine 137 mcg tablet 137 mcg PO QAM 11/26/21 03/05/22 History semaglutide (Ozempic) 0.25 mg SUBCUT WK 11/26/21 03/05/22 History aspirin 81 mg tablet,delayed 81 mg PO HS 01/04/22 03/05/22 History release topiramate 25 mg tablet 25 mg PO HS 03/05/22 03/05/22 History Past Med/Surg History Medical History Asthma, moderate persistent Atrial fibrillation and flutter CKD (chronic kidney disease), stage III Depression DM type 2 (diabetes mellitus, type 2) History of tobacco abuse HTN (hypertension) Hypothyroidism Meniere disease RADHA (obstructive sleep apnea) Osteoarthritis of right knee Pulmonary emphysema Surgical History H/O sinus surgery History of cholecystectomy History of hysterectomy History of laminectomy History of repair of left rotator cuff Hx of neck surgery Family History Father Diabetes Social History Smoking Status: Never smoker Tobacco Type: Cigarettes packs per day: 1.5; Years Smoked: 20; Cigarettes Per Day: 30; Second Hand Exposure: No; Hx Alcohol Use: No Hx Substance Use: No Preferred Language: [place]kin[place] Communication Ability: Effective Casket Trimmer Required: No Beliefs That Will Affect Care: None Current Living Situation: Spouse Feels Safe at Home: Yes Assistive Devices: Glasses Review of Systems Review of Systems: As above in HPI, remaining ROS reviewed and are negatve Physical Exam Physical Exam: Non toxic, no acute distress, appears weak ENMT: mucous membrane dry, neck midline, head normocephalic Respiratory: breathing comfortably on room air, no wheezing/rhonchi/rales Cardiovascular: regular rate and rhythm, no murmurs/rubs/gallops Gastrointestinal (Abdomen): soft, non tender, non distended Musculoskeletal: No edema, no cyanosis or clubbing Skin: No rash, no redness, no bruising noted Neurologic: awake, alert, answering questions appropriately, spontaneously moving extremities Psychiatric: affect normal, speech linear, non pressured Results & Data Results & Data ([facility]) Vital Signs (Past 12 Hours) Vital Signs Temp Pulse Pulse Resp BP BP Pulse Ox 03/05/22 11:22 65 18 122/58 L 97 03/05/22 11:08 100 03/05/22 10:54 36.5 C 84 16 61/38 L 94 Laboratory Results Short CBC 03/05/22 Range/Units 11:05 WBC 11.54 H (4.8-10.8) K/ul Hgb 9.2 L (12.0-16.0) g/dl Hct 28.7 L (34.1-44.9) % Plt Count 270 (130-400) K/uL BMP 03/05/22 11:05 Sodium 136 Potassium 4.7 Chloride 104 Carbon Dioxide 23 BUN 43 H Creatinine 1.39 H Glucose 197 H Calcium 9.2 Liver Function 03/05/22 Range/Units 11:05 Total Bilirubin 0.5 (0.2-1.0) mg/dl AST 46 H (13-39) U/L ALT 42 (7-52) U/L Alkaline Phosphatase 198 H (34-104) U/L Albumin 3.7 (3.4-5.0) gm/dl
[2022-03-05 13:33] LABS: Influenza A virus by PCR Negative (Neg); Influenza B virus by PCR Negative (Neg); RSV by PCR Negative (Neg)
[2022-03-05 13:39] LABS: SARS CoV2 RNA(COVID-19) InHosp POSITIVE (Negative)
[2022-03-05] MEDS ORDERED: ALPRAZolam 0.5 MG TABLET PO PRN (15:51)
[2022-03-05] MEDS ORDERED: ONDANSETRON INJ 2 MG/ML 2 ML VIAL IV PRN (15:51)
[2022-03-05] MEDS ORDERED: POLYETHYLENE (MIRALAX) 17 GM PACK PO PRN (15:51)
[2022-03-05] MEDS ORDERED: PANTOprazole 40 MG TAB PO PRN (16:15)
[2022-03-05] MEDS: SODIUM CHLORIDE 0.9% 1000ML 1,000 ML IV SCH (16:27)
[2022-03-05] MEDS ORDERED: IPRATROPIUM BROMIDE NASAL SPRAY 0.06% 15ML NAE PRN (16:28)
[2022-03-05 17:36] LABS: Appearance Urine Clear (Clear); Bacteria Urine Automated Negative (Negative); Bilirubin Urine Negative (Negative); Blood Urine Negative (Negative); Color Urine Yellow; Epithelial Cell Urine Auto 20-30 /lpf (0-5); Glucose Urine UA Negative (Negative); Ketones Urine Negative (Negative); Leukocyte Esterase Urine Trace (Negative); Nitrite Urine Negative (Negative); Protein Urine Negative (Negative); RBC Urine Automated 0-4 /hpf (0-4); Specific Gravity Urine 1.013 (1.000-1.030); Urobilinogen Urine Negative (Negative)
[2022-03-05] MEDS: COLCHICINE 0.6 MG TAB PO SCH (20:47)
[2022-03-05] MEDS: allopurinoL 100 MG TAB PO SCH (20:47)
[2022-03-05] MEDS: METOPROLOL SUCC 50MG EXT REL TAB PO SCH (20:47)
[2022-03-05] MEDS: ASPIRIN 81 MG ECTAB PO SCH (20:47)
[2022-03-05] MEDS: FOLIC ACID 1 MG TAB PO SCH (20:47)
[2022-03-05] MEDS: MONTELUKAST SODIUM 10 MG TABLET PO SCH (20:47)
[2022-03-05] MEDS: APIXABAN 5 MG TABLET PO SCH (20:47)
[2022-03-06] MEDS: SODIUM CHLORIDE 0.9% 1000ML 1,000 ML IV SCH ×2 (02:27→13:03)
[2022-03-06] MEDS: LEVOTHYROXINE SODIUM 137 MCG TABLET PO SCH (06:20)
[2022-03-06 06:38] LABS: Hematocrit (blood only) 22.5 % (34.1-44.9); Hemoglobin 7.2 g/dl (12.0-16.0); Mean Corpuscular Volume 93.8 fL (80.0-100.0); Mean Platelet Volume 11.1 fL (9.4-12.3); Platelet Count 174 K/uL (130-400); RDW Coefficient of Variation 15.7 % (11.5-14.5); RDW Standard Deviation 53.4 fL (36.4-46.3); White Blood Count 8.38 K/ul (4.8-10.8)
[2022-03-06 07:00] LABS: Calcium 8.5 mg/dl (8.5-10.1); Creatinine Clr Calc Pharmacy 38.5 ml/min; Est GFR (Non-African American) 50.9 ml/min; Magnesium 1.7 mg/dl (1.7-2.4); Phosphorus 3.5 mg/dl (2.5-4.9); Potassium 3.9 mmol/L (3.5-5.1)
[2022-03-06] MEDS: APIXABAN 5 MG TABLET PO SCH (08:23)
[2022-03-06] MEDS: ATORVASTATIN 20 MG TAB PO SCH (08:23)
[2022-03-06] MEDS: VENLAFAXINE HCL XR 150 MG CAPXR PO SCH (08:24)
[2022-03-06] MEDS: FERROUS SULFATE 325 MG TAB PO SCH (08:24)
[2022-03-06] MEDS: CHOLECALCIFEROL 1,000 UNITS 25 MCG TAB PO SCH (08:24)
[2022-03-06] MEDS: CHOLECALCIFEROL 5,000 UNITS 125 MCG TAB PO SCH (08:24)
[2022-03-06] MEDS ORDERED: SODIUM CHLORIDE 0.9% 250 ML IV PRN (14:36)
--- NOTE | 2022-03-06 14:42 | Hospitalist Progress Note ---
Date of Service March 06, 2022 Assessment & Plan (1) Near syncope: (2) TIFFANY (acute kidney injury): (3) Dehydration: (4) Acute on chronic anemia: Plan Near syncope -Appears most consistent with dehydration due to poor appetite vs anemia -Orthostatic vital + -TTE from 11/2021 with normal EF, does not need repeat unless clinical change -TSH normal TIFFANY -due to dehydration, poor appetite -s/p 1.5L NSS in ER with improvement in blood pressure. Cr now back to baseline Acute on chronic anemia -check iron studies, B12, folate -Hb down to 7.2 (baseline 10-12), will hold Eliquis. Ask for GI consult. -Protonix IV BID -will give 1 unit pRBC now for symptomatic anemia. Patient consented Anorexia -poor appetite related to recent covid 19 infection. Suggested appetite stimulant but patient undecided -[place] diet, encourage oral intake PAF -Eliquis--hold, Metoprolol--continue Asthma -well controlled, continue home medications DVT ppx -SCDs for now, Eliquis on hold Code status -Full, discussed with patient Disposition -PT evaluation deferred due to anemia -will admit to inpatient Admission and Anticipated Discharge Date Admission Date: March 05, 2022 Subjective Feels weak, light headed with ambulation Physical Exam Physical Exam: Pale, weak, no acute distress ENMT: conjunctival pallor, normocephalic, mucous membrane moist Respiratory: breathing comfortably on room air, no wheezing/rhonchi/rales Cardiovascular: regular rate and rhythm, no murmurs/rubs Gastrointestinal (Abdomen): soft, non tender Musculoskeletal: no edema, no cyanosis or clubbing Neurologic: awake, alert, spontaneously moving extremities Results & Data Results & Data ([facility]) Vital Signs (Past 12 Hours) Vital Signs Temp Pulse Resp BP Pulse Ox O2 Del Method 03/06/22 10:22 36.4 C L 69 20 119/72 98 Room Air 03/06/22 07:56 36.4 C L 79 18 122/62 94 Room Air 03/06/22 04:00 36.8 C 82 16 121/56 L 95 Room Air Laboratory Results Short CBC 03/06/22 Range/Units 05:47 WBC 8.38 (4.8-10.8) K/ul Hgb 7.2 L (12.0-16.0) g/dl Hct 22.5 L (34.1-44.9) % Plt Count 174 (130-400) K/uL BMP 03/06/22 05:47 Sodium 139 Potassium 3.9 Chloride 110 H Carbon Dioxide 25 BUN 33 H Creatinine 1.03 D Glucose 97 Calcium 8.5 Urine 03/05/22 Range/Units 16:50 Urine Color Yellow Urine Appearance Clear (Clear) Urine pH 5.0 (4.5-7.5) Ur Specific [place] 1.013 (1.000-1.030) Urine Protein Negative (Negative) Urine Glucose (UA) Negative (Negative) Medications Administered Current Inpatient Medications Allopurinol (Allopurinol 100 Mg Tab) 100 mg PO HS JULIO CESAR Stop: 04/04/22 20:59 Last Admin: 03/05/22 20:47 Dose: 100 mg Alprazolam (Alprazolam 0.5 Mg Tablet) 0.5 mg PO QID PRN PRN Reason: Anxiety Stop: 04/04/22 15:50 Last Admin: 03/05/22 20:53 Dose: 0.5 mg Apixaban (Apixaban 5 Mg Tablet) 5 mg PO BID JULIO CESAR Stop: 04/04/22 20:59 Last Admin: 03/06/22 08:23 Dose: 5 mg Aspirin (Aspirin 81 Mg Ectab) 81 mg PO HS JULIO CESAR Stop: 04/04/22 20:59 Last Admin: 03/05/22 20:47 Dose: 81 mg Atorvastatin Calcium (Atorvastatin 20 Mg Tab) 20 mg PO QAM JULIO CESAR Stop: 04/05/22 08:59 Last Admin: 03/06/22 08:23 Dose: 20 mg Colchicine (Colchicine 0.6 Mg Tab) 0.6 mg PO QPM JULIO CESAR Stop: 04/04/22 20:59 Last Admin: 03/05/22 20:47 Dose: 0.6 mg Digoxin (Digoxin 0.125 Mg Tab) 0.125 mg PO MoWeFr@1600 JULIO CESAR Stop: 04/05/22 15:59 Ferrous Sulfate (Ferrous Sulfate 325 Mg Tab) 325 mg PO DAILY JULIO CESAR Stop: 04/05/22 08:59 Last Admin: 03/06/22 08:24 Dose: 325 mg Folic Acid (Folic Acid 1 Mg Tab) 1 mg PO HS JULIO CESAR Stop: 04/04/22 20:59 Last Admin: 03/05/22 20:47 Dose: 1 mg Pantoprazole Sodium 40 mg/ (Syringe) 10 mls @ 5 mls/min IV BID JULIO CESAR Stop: 04/05/22 20:59 Sodium Chloride (Nss) 250 mls @ 15 mls/hr IV .[id number] PRN PRN Reason: For Transfusion Stop: 03/07/22 00:36 Ipratropium [place] (Ipratropium [place] Nasal [place] 0.06% 15ml) 1 sprays OLVIN DAILY PRN PRN Reason: Sinus Symptoms Stop: 04/04/22 16:27 Levothyroxine Sodium (Levothyroxine Sodium 137 Mcg Tablet) 137 mcg PO DAILYBB JULIO CESAR Stop: 04/05/22 06:29 Last Admin: 03/06/22 06:20 Dose: 137 mcg Metoprolol Succinate (Metoprolol Succ 50mg Ext Rel Tab) 50 mg PO HS JULIO CESAR Stop: 04/04/22 20:59 Last Admin: 03/05/22 20:47 Dose: 50 mg Montelukast Sodium (Montelukast Sodium 10 Mg Tablet) 10 mg PO PM JULIO CESAR Stop: 04/04/22 20:59 Last Admin: 03/05/22 20:47 Dose: 10 mg Ondansetron HCl (Ondansetron Inj 2 Mg/Ml 2 Ml Vial) 4 mg IV Q6H PRN PRN Reason: Nausea Stop: 04/04/22 15:50 Polyethylene Glycol (Polyethylene (Miralax) 17 Gm Pack) 17 gm PO DAILY PRN PRN Reason: Constipation Stop: 04/04/22 15:50 Trazodone HCl (Trazodone Hcl 50 Mg Tab) 25 mg PO ONCE ONE Stop: 03/06/22 21:01 Venlafaxine HCl (Venlafaxine Hcl Xr 150 Mg Capxr) 150 mg PO QAM JULIO CESAR Stop: 04/05/22 08:59 Last Admin: 03/06/22 08:24 Dose: 150 mg Vitamin D (Cholecalciferol 1,000 Units 25 Mcg Tab) 1,000 units PO QAM JULIO CESAR Stop: 04/05/22 08:59 Last Admin: 03/06/22 08:24 Dose: 1,000 units Vitamin D (Cholecalciferol 5,000 Units 125 Mcg Tab) 5,000 units PO QAM JULIO CESAR Stop: 04/05/22 08:59 Last Admin: 03/06/22 08:24 Dose: 5,000 units
[2022-03-06] MEDS ORDERED: DIGOXIN 0.125 MG TAB PO SCH (16:00)
[2022-03-06] MEDS: PANTOprazole 40 MG in SYRINGE 0 ML IV SCH (20:19)
[2022-03-06] MEDS: FOLIC ACID 1 MG TAB PO SCH (20:21)
[2022-03-06] MEDS: COLCHICINE 0.6 MG TAB PO SCH (20:21)
[2022-03-06] MEDS: ASPIRIN 81 MG ECTAB PO SCH (20:21)
[2022-03-06] MEDS: MONTELUKAST SODIUM 10 MG TABLET PO SCH (20:22)
[2022-03-06] MEDS: allopurinoL 100 MG TAB PO SCH (20:22)
[2022-03-06] MEDS: METOPROLOL SUCC 50MG EXT REL TAB PO SCH (20:22)
[2022-03-06] MEDS ORDERED: traZODone HCL 50 MG TAB PO ONE (21:00)
[2022-03-07] MEDS: LEVOTHYROXINE SODIUM 137 MCG TABLET PO SCH (05:57)
[2022-03-07 08:36] LABS: BUN Creatinine Ratio 24.5 (10-20); Calcium 8.4 mg/dl (8.5-10.1); Creatinine Clr Calc Pharmacy 40.5 ml/min; Est GFR (African American) 62.7 ml/min; Est GFR (Non-African American) 54.1 ml/min
[2022-03-07 08:41] LABS: Hematocrit (blood only) 25.1 % (34.1-44.9); Hemoglobin 8.3 g/dl (12.0-16.0); Mean Corpuscular Hemoglobin 29.4 pg (25.0-34.0); Mean Corpuscular Hgb Conc 33.1 g/dL (32.0-36.0); Mean Platelet Volume 10.7 fL (9.4-12.3); Platelet Count 169 K/uL (130-400); RDW Standard Deviation 54.6 fL (36.4-46.3); Red Blood Count 2.82 M/uL (3.93-5.22); White Blood Count 7.52 K/ul (4.8-10.8)
[2022-03-07 08:57] LABS: Folate (Folic Acid) > 22.30 ng/ml (>5.38)
[2022-03-07 08:58] LABS: Vitamin B12 192 pg/ml (180-914)
[2022-03-07] MEDS: VENLAFAXINE HCL XR 150 MG CAPXR PO SCH (09:20)
[2022-03-07] MEDS: ATORVASTATIN 20 MG TAB PO SCH (09:20)
[2022-03-07] MEDS: CHOLECALCIFEROL 1,000 UNITS 25 MCG TAB PO SCH (09:20)
[2022-03-07] MEDS: CHOLECALCIFEROL 5,000 UNITS 125 MCG TAB PO SCH (09:21)
[2022-03-07] MEDS: FERROUS SULFATE 325 MG TAB PO SCH (09:21)
[2022-03-07] MEDS: PANTOprazole 40 MG in SYRINGE 0 ML IV SCH ×2 (09:22→20:06)
--- NOTE | 2022-03-07 12:06 | Hospitalist Progress Note ---
Date of Service March 07, 2022 Assessment & Plan (1) Near syncope: (2) TIFFANY (acute kidney injury): (3) Dehydration: (4) Acute on chronic anemia: Plan Near syncope -Appears most consistent with dehydration due to poor appetite vs anemia -Orthostatic vital + on admission -TTE from 11/2021 with normal EF, does not need repeat unless clinical change -TSH normal TIFFANY -due to dehydration, poor appetite -s/p 1.5L NSS in ER with improvement in blood pressure. Cr now back to baseline Acute on chronic anemia - iron studies normal, B12 low normal, folate normal -Hb down to 7.2 (baseline 10-12), Eliquis held. GI consulted. -Protonix IV BID -s/p 1 unit pRBC for symptomatic anemia. -start B12 supplement Anorexia -poor appetite related to recent covid 19 infection. 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 -start B12 supplement PAF -Eliquis--hold, Metoprolol--continue Asthma -well controlled, continue home medications DVT ppx -SCDs for now, Eliquis on hold Code status -Full, discussed with patient Disposition -PT evaluation pending Admission and Anticipated Discharge Date Admission Date: March 06, 2022 Subjective Received 1 unit pRBC yesterday with appropriate response Reported several loose black stools yesterday Still feels weak Review of Systems Review of Systems: As above Physical Exam Physical Exam: Appears weak but no acute distress, non toxic ENMT: Normocephalic, atraumatic Respiratory: breathing comfortably, no wheezing/rhonchi/rales Cardiovascular: regular rate and rhythm, no murmurs/rubs/gallops Gastrointestinal (Abdomen): +BS, soft, non tender Musculoskeletal: No edema, no cyanosis Neurologic: Awake, alert, spontaneously moving extremities Psychiatric: Normal affect, speech linear, non pressure Results & Data Results & Data ([facility]) Vital Signs (Past 12 Hours) Vital Signs Temp Pulse Pulse Resp BP Pulse Ox O2 Del Method 03/07/22 06:10 70 03/07/22 08:04 36.7 C 64 18 105/60 94 Room Air 03/07/22 03:27 37.1 C 73 19 119/62 92 Room Air Laboratory Results Short CBC 03/07/22 Range/Units 07:41 WBC 7.52 (4.8-10.8) K/ul Hgb 8.3 L (12.0-16.0) g/dl Hct 25.1 L (34.1-44.9) % Plt Count 169 (130-400) K/uL [facility] 03/07/22 07:41 Sodium 139 Potassium 4.0 Chloride 109 H Carbon Dioxide 25 BUN 24 H Creatinine 0.98 Glucose 116 H Calcium 8.4 L Medications Administered Current Inpatient Medications Allopurinol (Allopurinol 100 Mg Tab) 100 mg PO HS JULIO CESAR Stop: 04/04/22 20:59 Last Admin: 03/06/22 20:22 Dose: 100 mg Alprazolam (Alprazolam 0.5 Mg Tablet) 0.5 mg PO QID PRN PRN Reason: Anxiety Stop: 04/04/22 15:50 Last Admin: 03/05/22 20:53 Dose: 0.5 mg Apixaban (Apixaban 5 Mg Tablet) 5 mg PO BID JULIO CESAR Stop: 04/04/22 20:59 Last Admin: 03/06/22 08:23 Dose: 5 mg Aspirin (Aspirin 81 Mg Ectab) 81 mg PO HS JULIO CESAR Stop: 04/04/22 20:59 Last Admin: 03/06/22 20:21 Dose: 81 mg Atorvastatin Calcium (Atorvastatin 20 Mg Tab) 20 mg PO QAM JULIO CESAR Stop: 04/05/22 08:59 Last Admin: 03/07/22 09:20 Dose: 20 mg Colchicine (Colchicine 0.6 Mg Tab) 0.6 mg PO QPM JULIO CESAR Stop: 04/04/22 20:59 Last Admin: 03/06/22 20:21 Dose: 0.6 mg Cyanocobalamin (Cyanocobalamin (B-12) 100 Mcg Tablet) 100 mcg PO QAM JULIO CESAR Stop: 04/07/22 08:59 Digoxin (Digoxin 0.125 Mg Tab) 0.125 mg PO MoWeFr@1600 JULIO CESAR Stop: 04/05/22 15:59 Last Admin: 03/06/22 16:32 Dose: 0.125 mg Ferrous Sulfate (Ferrous Sulfate 325 Mg Tab) 325 mg PO DAILY JULIO CESAR Stop: 04/05/22 08:59 Last Admin: 03/07/22 09:21 Dose: 325 mg Folic Acid (Folic Acid 1 Mg Tab) 1 mg PO HS JULIO CESAR Stop: 04/04/22 20:59 Last Admin: 03/06/22 20:21 Dose: 1 mg Pantoprazole Sodium 40 mg/ (Syringe) 10 mls @ 5 mls/min IV BID JULIO CESAR Stop: 04/05/22 20:59 Last Admin: 03/07/22 09:22 Dose: 5 mls/min Ipratropium [place] (Ipratropium [place] Nasal [place] 0.06% 15ml) 1 sprays OLVIN DAILY PRN PRN Reason: Sinus Symptoms Stop: 04/04/22 16:27 Levothyroxine Sodium (Levothyroxine Sodium 137 Mcg Tablet) 137 mcg PO DAILYBB JULIO CESAR Stop: 04/05/22 06:29 Last Admin: 03/07/22 05:57 Dose: 137 mcg Metoprolol Succinate (Metoprolol Succ 50mg Ext Rel Tab) 50 mg PO HS [facility] Stop: 04/04/22 20:59 Last Admin: 03/06/22 20:22 Dose: 50 mg Montelukast Sodium (Montelukast Sodium 10 Mg Tablet) 10 mg PO PM JULIO CESAR Stop: 04/04/22 20:59 Last Admin: 03/06/22 20:22 Dose: 10 mg Ondansetron HCl (Ondansetron Inj 2 Mg/Ml 2 Ml Vial) 4 mg IV Q6H PRN PRN Reason: Nausea Stop: 04/04/22 15:50 Polyethylene Glycol (Polyethylene (Miralax) 17 Gm Pack) 17 gm PO DAILY PRN PRN Reason: Constipation Stop: 04/04/22 15:50 Venlafaxine HCl (Venlafaxine Hcl Xr 150 Mg Capxr) [facility] Stop: 04/05/22 08:59 Last Admin: 03/07/22 09:20 Dose: 150 mg Vitamin D (Cholecalciferol 1,000 Units 25 Mcg Tab) 1,000 units PO QAM [facility] Stop: 04/05/22 08:59 Last Admin: 03/07/22 09:20 Dose: 1,000 units Vitamin D (Cholecalciferol 5,000 Units 125 Mcg Tab) 5,000 units PO QAM [facility] Stop: 04/05/22 08:59 Last Admin: 03/07/22 09:21 Dose: 5,000 units
--- NOTE | 2022-03-07 13:07 | Gastrointestinal Consultation ---
Date of Consultation March 07, 2022 Assessment & Plan (1) Acute on chronic anemia: Plan Will plan for EGD/Colonoscopy on Friday03/11/22. Please hold Eliquis. Appreciate primary hospitalists service fluids/blood resuscitation. Continue BID PPi. Supervising Physician Co-Signing Physician Notes Late entry: Patient was seen and examined on 03/07 with JESS Christensen whose note reflects our findings and plan. History of Present Illness Reason for Consultation: Acute on chronic anemia. On Eliquis. GIB ? Requesting Physician: Dr. Decker Attending Physician: Negrita Decker MD History of Present Illness Ms. Inga Ray is an 81 yr old female pt of Dr. Umesh carcamo a hx of PAF on digoxin and Eliquis, asthma, Meniere's disease, hypothyroidism who presented to the ED yesterday for weakness/dizziness. On arrival, Hb 9.2->7.2 yesterday , then received a unit of RBCs and Hb today is 8.3, BUN 24. EGD had been arranged for next week for anemia. She reports having passed 3-4 loose black BMs yesterday and the day before but stool occult in the ED was (-). She denies any epigastric pain. She is on Eliquis for A-fib and most recent dose was yesterday (03/06 in the morning). Most recent colonoscopy was October 2020 with AV. No recent EGD. Allergies Allergy/AdvReac Type Severity Reaction Status Date / Time Sulfa (Sulfonamide Allergy Severe Severe Verified 03/05/22 11:36 Antibiotics) rxn: rash and hives celecoxib Allergy Intermediate Rash/Hives/ Verified 03/05/22 11:36 Itching. cephalexin Allergy Intermediate Rash/Hives/ Verified 03/05/22 11:36 Itching. furosemide Allergy Intermediate Rash/Hives/ Verified 03/05/22 11:36 Itching. gabapentin Allergy Intermediate Rash/Hives/ Verified 03/05/22 11:36 Itching. pregabalin Allergy Intermediate Rash/Hives/ Verified 03/05/22 11:36 Itching. meclizine Allergy Unknown Unknown Verified 03/05/22 11:36 methylprednisolone Allergy Unknown Rash/Hives/ Verified 03/05/22 11:36 Itching. Penicillins Allergy Unknown Unknown. Verified 03/05/22 11:36 prednisone Allergy Unknown Rash/Hives/ Verified 03/05/22 11:36 Itching. vancomycin Allergy Unknown Jodi Verified 03/05/22 11:36 syn. . nickel Allergy Unknown Verified 03/05/22 11:36 dexamethasone AdvReac Intermediate Steroid Verified 03/05/22 11:36 psychosis. Home Medications Medication Instructions Recorded Confirmed Type alprazolam 0.5 mg tablet 0.5 mg PO QID PRN Anxiety 04/08/19 03/05/22 History folic acid 1 mg tablet 1 mg PO HS 04/08/19 03/05/22 History lansoprazole 15 mg capsule,delayed 15 mg PO DAILY PRN heart burn 04/08/19 03/05/22 History release montelukast 10 mg tablet 10 mg PO PM 04/08/19 03/05/22 History venlafaxine 150 mg 150 mg PO QAM #30 caps 04/08/19 03/05/22 History capsule,extended release 24 hr digoxin 125 mcg (0.125 mg) tablet 125 mcg PO [id number] 06/03/20 03/05/22 History ferrous sulfate 325 mg (65 mg 325 mg PO DAILY 06/03/20 03/05/22 History iron) tablet ipratropium bromide 21 mcg (0.03 2 spray intranasal DAILY PRN Sinus 06/03/20 03/05/22 History %) nasal spray Symptoms metoprolol succinate 50 mg 50 mg PO HS 06/03/20 03/05/22 History tablet,extended release 24 hr allopurinol 100 mg tablet 100 mg PO HS 11/26/21 03/05/22 History apixaban 5 mg tablet (Eliquis) 5 mg PO BID 11/26/21 03/05/22 History atorvastatin 20 mg tablet 20 mg PO QAM 11/26/21 03/05/22 History cholecalciferol (vitamin D3) 50 150 mcg PO QAM 11/26/21 03/05/22 History mcg (2,000 unit) capsule (Vitamin D3) colchicine 0.6 mg tablet 0.6 mg PO QPM 11/26/21 03/05/22 History levothyroxine 137 mcg tablet 137 mcg PO QAM 11/26/21 03/05/22 History semaglutide (Ozempic) 0.25 mg subcut WK 11/26/21 03/05/22 History aspirin 81 mg tablet,delayed 81 mg PO HS 01/04/22 03/05/22 History release topiramate 25 mg tablet 25 mg PO HS 03/05/22 03/05/22 History Patient History Medical History Asthma, moderate persistent Atrial fibrillation and flutter CKD (chronic kidney disease), stage III Depression Elevated brain natriuretic peptide (BNP) level History of tobacco abuse HTN (hypertension) Hypothyroidism Meniere disease RADHA (obstructive sleep apnea) Osteoarthritis of right knee Pneumonia Surgical History H/O sinus surgery History of cholecystectomy History of hysterectomy History of laminectomy History of repair of left rotator cuff Hx of neck surgery Family History Father Diabetes Social History Smoking Status: Former smoker Tobacco Type: Cigarettes packs per day: 1.5; Years Smoked: 20; Cigarettes Per Day: 30; Second Hand Exposure: No; Do You Dip or Chew Tobacco: No; Hx Alcohol Use: No Hx Substance Use: No Preferred Language: Mongolian Communication Ability: Effective Beating Machine Operator Required: No Beliefs That Will Affect Care: None marital status: Current Living Situation: Spouse Other Information That Helps Us Care for You: No Feels Safe at Home: Yes Safety Concerns: Feels Safe At This Time Assistive Devices: Cane and Walker Assistive Devices Comment: cpap recalled - no machine at home Review of Systems Review of Systems: A total of 12 systems were reviewed, positive as mentioned in the HPI. All others (-). Physical Exam Constitutional: WD/WN, vitals as above ENMT: external ear and nose normal, oropharynx normal Neck: trachea midline, no thyromegaly Respiratory: normal respiratory effort, lungs clear to auscultation Cardiovascular: RRR, no murmur, no edema Gastrointestinal (Abdomen): normal bowel sounds, soft, nontender, no hepatosplenomegaly Skin: no rashes, warm and dry Neurologic: PERRL, EOMI, accommodation nl, no face palsy, no dysarthria Psychiatric: A+Ox3, euthymic affect Lymphatic: no cervical or axillary lymphadenopathy Results & Data ([facility]) Vital Signs (Past 12 Hours) Vital Signs Temp Pulse Pulse Resp BP Pulse Ox O2 Del Method 03/07/22 12:13 36.6 C 66 17 110/65 95 Room Air 03/07/22 06:10 70 03/07/22 08:04 36.7 C 64 18 105/60 94 Room Air 03/07/22 03:27 37.1 C 73 19 119/62 92 Room Air Laboratory Results WBC 2.8, Hb 8.3, Hct 25, plts 169, Na 139, K 4.0, Cl 109, Co2 25, BUN 24, Cr 0.98, glucose 116. PT 12.4, INR 1.2. Diagnostic Findings CXR 03/05/22: No acute abnormalities and in particular no evidence of pneumonia
[2022-03-07] MEDS: COLCHICINE 0.6 MG TAB PO SCH (20:06)
[2022-03-07] MEDS: FOLIC ACID 1 MG TAB PO SCH (20:06)
[2022-03-07] MEDS: ASPIRIN 81 MG ECTAB PO SCH (20:06)
[2022-03-07] MEDS: METOPROLOL SUCC 50MG EXT REL TAB PO SCH (20:07)
[2022-03-07] MEDS: MONTELUKAST SODIUM 10 MG TABLET PO SCH (20:07)
[2022-03-07] MEDS: allopurinoL 100 MG TAB PO SCH (20:07)
[2022-03-07] MEDS: MELATONIN 3 MG TAB PO PRN (21:46)
[2022-03-08] MEDS: LEVOTHYROXINE SODIUM 137 MCG TABLET PO SCH (06:50)
[2022-03-08 06:56] LABS: Hematocrit (blood only) 26.1 % (34.1-44.9); Hemoglobin 8.4 g/dl (12.0-16.0); Mean Corpuscular Hemoglobin 29.3 pg (25.0-34.0); Mean Corpuscular Hgb Conc 32.2 g/dL (32.0-36.0); Mean Corpuscular Volume 90.9 fL (80.0-100.0); Mean Platelet Volume 10.4 fL (9.4-12.3); Platelet Count 160 K/uL (130-400); RDW Coefficient of Variation 16.5 % (11.5-14.5); RDW Standard Deviation 54.9 fL (36.4-46.3); Red Blood Count 2.87 M/uL (3.93-5.22)
[2022-03-08 07:37] LABS: BUN Creatinine Ratio 20.2 (10-20); Calcium 8.6 mg/dl (8.5-10.1); Creatinine Clr Calc Pharmacy 38.2 ml/min; Est GFR (African American) 58.4 ml/min; Est GFR (Non-African American) 50.3 ml/min
[2022-03-08] MEDS: VENLAFAXINE HCL XR 150 MG CAPXR PO SCH (10:45)
[2022-03-08] MEDS: CHOLECALCIFEROL 5,000 UNITS 125 MCG TAB PO SCH (10:45)
[2022-03-08] MEDS: ATORVASTATIN 20 MG TAB PO SCH (10:45)
[2022-03-08] MEDS: CYANOCOBALAMIN (B-12) 100 MCG TABLET PO SCH (10:45)
[2022-03-08] MEDS: CHOLECALCIFEROL 1,000 UNITS 25 MCG TAB PO SCH (10:45)
[2022-03-08] MEDS: FERROUS SULFATE 325 MG TAB PO SCH (10:46)
[2022-03-08] MEDS: PANTOprazole 40 MG in SYRINGE 0 ML IV SCH ×2 (11:40→21:07)
--- NOTE | 2022-03-08 12:38 | Hospitalist Progress Note ---
Date of Service March 08, 2022 Assessment & Plan (1) Near syncope: (2) TIFFANY (acute kidney injury): (3) Dehydration: (4) Acute on chronic anemia: Plan Near syncope -Appears most consistent with dehydration due to poor appetite vs anemia -Orthostatic vital + on admission -TTE from 11/2021 with normal EF -TSH normal TIFFANY -due to dehydration, poor appetite -s/p 1.5L NSS in ER with improvement in blood pressure. Cr now back to baseline Acute on chronic anemia - iron studies normal, B12 low normal, folate normal -Hb down to 7.2 (baseline -), Eliquis held. -Protonix IV BID -s/p 1 unit pRBC 03/06 with appropriate response -start B12 supplement -GI consulted, plan for EGD and colonoscopy Friday. Clears on Friday and will be NPO pM Friday evening Anorexia -poor appetite related to recent covid 19 infection. 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 Still feels very weak This morning reported feeling palpitations Physical Exam Physical Exam: Appears stated age, no acute distress, non toxic Respiratory: Breathing comfortably on room air, no wheezing/rhonchi/rales Cardiovascular: Irregular but not rapid Gastrointestinal (Abdomen): soft, non tender, non distended Musculoskeletal: No edema, no cyanosis or clubbing Skin: No rash or redness Neurologic: awake, alert, spontaneously moving extremities Results & Data Results & Data ([facility]) Vital Signs (Past 12 Hours) Vital Signs Temp Pulse Resp BP Pulse Ox Pulse Ox O2 Del Method 03/08/22 11:00 95 03/08/22 11:53 36.5 C 65 19 130/66 97 Room Air 03/08/22 08:24 36.4 C L 68 17 116/66 92 Room Air 03/08/22 04:27 36.4 C L 73 16 145/68 H 97 Room Air O2 Del Method 03/08/22 11:00 Room Air 03/08/22 11:53 03/08/22 08:24 03/08/22 04:27 Laboratory Results Short CBC 03/08/22 Range/Units 06:40 WBC 7.70 (4.8-10.8) K/ul Hgb 8.4 L (12.0-16.0) g/dl Hct 26.1 L (34.1-44.9) % Plt Count 160 (130-400) K/uL BMP 03/08/22 06:40 Sodium 138 Potassium 4.0 Chloride 108 H Carbon Dioxide 25 BUN 21 Creatinine 1.04 Glucose 123 H Calcium 8.6
[2022-03-08] MEDS: MAGNESIUM SULFATE / D5W 1 GM/100 ML BAG IV SCH ×2 (13:01→14:38)
--- NOTE | 2022-03-08 15:28 | Cardiology Consultation ---
Date of Consultation March 08, 2022 Assessment & Plan (1) Acute on chronic anemia: (2) Near syncope: (3) Atrial fibrillation and flutter: Plan Patient presenting with symptomatic anemia. 1 unit PRBC's transfused. Hbg stable at 8 today. Hold Eliquis plan for colonoscopy and EGD on Friday She presented to [place] in [place]. Over the last few cardiac evaluations she has been in persistent atrial fib and flutter, with controlled rates. She is now having intermittent atrial arrhythmias on telemetry with short bursts of atrial flutter/atrial tach, several possible conversion pauses and frequent PAC's. She it not overtly asymptomatic. There was mention of her episode of VT overnight during presumed sleep, but per my review it appears to be atrial flutter with aberrancy, not VT. She does report history of RADHA but no longer uses CPAP due to recall and weight loss. Daughter concerned. Will proceed with nocurnal oximetry. replace magnesium. options discussed for treatment of atrial arrhythmias. Hold metoprolol and digoxin. If she has no recurrent pauses, or bradyarrhythmias, consider initiation of sotalol 80 mg. Continue on telemetry. Hold Eliquis in prep for surgery. replace magnesium level. Case reviewed with Dr. Márquez. Will follow Supervising Physician Co-Signing Physician Notes 81-year-old female present to the emergency department due to near syncope, acute kidney injury, dehydration. Carries a history of paroxysmal atrial fibrillation on chronic anticoagulation. Cardiology consultation requested due to possible nonsustained ventricular tachycardia. Patient reports intermittent lightheadedness and near syncope dating back several years. Previously evaluated with a loop recorder which was unremarkable. This afternoon, telemetry recorded episodes of paroxysmal atrial tachycardia/flutter with intermittent 2.5-3-second pauses. No associated near-syncope, however, patient states "I felt weird". Daughter present via telephone for discussion. PE: VSS. Gen: NAD, AAO x3. Heart: Regular with occasional ectopy. Normal S1- S2. No murmur. Lungs: Clear bilateral, no rales rhonchi or wheeze. Extremities: No edema. A/P: Agree with above PA-C history, physical exam, assessment and plan. I reviewed telemetry at length. Reported episode nonsustained ventricular tachycardia more likely supraventricular tachycardia with aberrant conduction. Patient with normal LV systolic function per recent echocardiogram. Telemetry also reveals atrial flutter and atrial tachycardia with intermittent 2.5-3.0-second pauses. Possible associated symptoms. Recommend holding metoprolol and digoxin. Will monitor telemetry overnight. If there are no recurrent pauses, consider rhythm control strategy with sotalol 80 mg twice daily. Discussed potential need for pacemaker implantation at some point during patient's lifetime. Hold anticoagulation in anticipation of EGD/colonoscopy. All questions answered to satisfaction both the patient and her daughter. History of Present Illness Reason for Consultation: Atrial arrhythmias; GI bleed; anemia Requesting Physician: Dr. Decker Attending Physician: Dr. Márquez History of Present Illness Patient is a 81 year old female known to [facility] cardiology, following with Dr. Hewitt, Dr. Swann, and Noah as an outpatient for long history of near syncopal episodes, atrial arrhythmias. Due to prior concerns for tachybrady syndrome, she underwent Linq insertion several years ago which failed to demonstrate any significant bradycardia arrhythmias that would correlate with her presyncope. Patient and daughter voiced frustration as they feel the link never truly "worked". She has a long history of atrial arrhythmias including atrial fibrillation and paroxysmal atrial flutter. During the last few cardiology evaluations, she has been in persistent rate controlled atrial flutter without symptoms. Due to severe left atrial enlargement, ongoing rate control strategy was recommended. Unfortunately her LINQ battery depleted earlier this year and no longer able to capture events. She has been been maintained in persistent atrial fib/flutter per prior EKG's on metoprolol and digoxin. Over the last several months, patient reports worsening fatigue, shortness of breath, dizziness. Upon arrival to the emergency department she was found to be in normal sinus rhythm. She was also found to be significantly anemic. She reports dark tarry stools over the last several weeks. She received 1 unit packed red blood cells in the emergency room with mild improvement in her hemoglobin. Eliquis placed on hold. Overnight she had a wide complex tachycardia, initially diagnosed as possible VT. Per review, appears to be more atrial tach with aberrancy. Magnesium supplemented today. Digoxin level acceptable. At time of consult patient/daughter voices frustrations regarding ongoing symptoms and "nothing" being done in regards to cardiac complaints. Currently, patient voices no acute complaints adn denies dizziness or palpitations. Upon entering the exam room, she was in possible atrial flutter vs atrial tach at 106 bpm, but had no symptoms. She denies chest pain or dyspnea currently. No abdominal pain. No recurrent GI bleeding today. After evaluation, it was noted she had several 3 second pauses but did not appear to have symptoms. Allergies Allergy/AdvReac Type Severity Reaction Status Date / Time Sulfa (Sulfonamide Allergy Severe Severe Verified 03/05/22 11:36 Antibiotics) rxn: rash and hives celecoxib Allergy Intermediate Rash/Hives/ Verified 03/05/22 11:36 Itching. cephalexin Allergy Intermediate Rash/Hives/ Verified 03/05/22 11:36 Itching. furosemide Allergy Intermediate Rash/Hives/ Verified 03/05/22 11:36 Itching. gabapentin Allergy Intermediate Rash/Hives/ Verified 03/05/22 11:36 Itching. pregabalin Allergy Intermediate Rash/Hives/ Verified 03/05/22 11:36 Itching. meclizine Allergy Unknown Unknown Verified 03/05/22 11:36 methylprednisolone Allergy Unknown Rash/Hives/ Verified 03/05/22 11:36 Itching. Penicillins Allergy Unknown Unknown. Verified 03/05/22 11:36 prednisone Allergy Unknown Rash/Hives/ Verified 03/05/22 11:36 Itching. vancomycin Allergy Unknown Jodi Verified 03/05/22 11:36 syn. . nickel Allergy Unknown Verified 03/05/22 11:36 dexamethasone AdvReac Intermediate Steroid Verified 03/05/22 11:36 psychosis. Home Medications Medication Instructions Recorded Confirmed Type alprazolam 0.5 mg tablet 0.5 mg PO QID PRN Anxiety 04/08/19 03/05/22 History folic acid 1 mg tablet 1 mg PO HS 04/08/19 03/05/22 History lansoprazole 15 mg capsule,delayed 15 mg PO DAILY PRN heart burn 04/08/19 03/05/22 History release montelukast 10 mg tablet 10 mg PO PM 04/08/19 03/05/22 History venlafaxine 150 mg 150 mg PO QAM #30 caps 04/08/19 03/05/22 History capsule,extended release 24 hr digoxin 125 mcg (0.125 mg) tablet 125 mcg PO 3XWK 06/03/20 03/05/22 History ferrous sulfate 325 mg (65 mg 325 mg PO DAILY 06/03/20 03/05/22 History iron) tablet ipratropium bromide 21 mcg (0.03 2 spray intranasal DAILY PRN Sinus 06/03/20 03/05/22 History %) nasal spray Symptoms metoprolol succinate 50 mg 50 mg PO HS 06/03/20 03/05/22 History tablet,extended release 24 hr allopurinol 100 mg tablet 100 mg PO HS 11/26/21 03/05/22 History apixaban 5 mg tablet (Eliquis) 5 mg PO BID 11/26/21 03/05/22 History atorvastatin 20 mg tablet 20 mg PO QAM 11/26/21 03/05/22 History cholecalciferol (vitamin D3) 50 150 mcg PO QAM 11/26/21 03/05/22 History mcg (2,000 unit) capsule (Vitamin D3) colchicine 0.6 mg tablet 0.6 mg PO QPM 11/26/21 03/05/22 History levothyroxine 137 mcg tablet 137 mcg PO QAM 11/26/21 03/05/22 History semaglutide (Ozempic) 0.25 mg subcut WK 11/26/21 03/05/22 History aspirin 81 mg tablet,delayed 81 mg PO HS 01/04/22 03/05/22 History release topiramate 25 mg tablet 25 mg PO HS 03/05/22 03/05/22 History Patient History Medical History Asthma, moderate persistent Atrial fibrillation and flutter CKD (chronic kidney disease), stage III Depression Elevated brain natriuretic peptide (BNP) level History of tobacco abuse HTN (hypertension) Hypothyroidism Meniere disease RADHA (obstructive sleep apnea) Osteoarthritis of right knee Pneumonia Surgical History H/O sinus surgery History of cholecystectomy History of hysterectomy History of laminectomy History of repair of left rotator cuff Hx of neck surgery Family History Father Diabetes Social History Smoking Status: Former smoker Tobacco Type: Cigarettes packs per day: 1.5; Years Smoked: 20; Cigarettes Per Day: 30; Second Hand Exposure: No; Do You Dip or Chew Tobacco: No; Hx Alcohol Use: No Hx Substance Use: No Preferred Language: E[place] Communication Ability: Effective Electronic Page Makeup System Operator Required: No Beliefs That Will Affect Care: None marital status: Current Living Situation: Spouse Other Information That Helps Us Care for You: No Feels Safe at Home: Yes Safety Concerns: Feels Safe At This Time Assistive Devices: Cane and Walker Assistive Devices Comment: cpap recalled - no machine at home Review of Systems Review of Systems: All systems reviewed & are unremarkable except as noted in HPI & below Physical Exam Constitutional: WD/WN, vitals as above Neck: trachea midline, no thyromegaly Respiratory: no respiratory distress Auscultation: lungs clear to auscultation bilaterally Cardiovascular: Rate/Rhythm: regular rhythm and + tachycardic Heart Sounds: no murmur Vessels: no JVD Extremities: no edema Gastrointestinal (Abdomen): normal bowel sounds, soft, nontender, no hepatosplenomegaly Neurologic: PERRL, EOMI, accommodation nl, no face palsy, no dysarthria Psychiatric: A+Ox3, euthymic affect Results & Data ([facility]) Vital Signs (Past 12 Hours) Vital Signs Temp Pulse Resp BP Pulse Ox Pulse Ox O2 Del Method 03/08/22 11:00 95 03/08/22 11:53 36.5 C 65 19 130/66 97 Room Air 03/08/22 08:24 36.4 C L 68 17 116/66 92 Room Air 03/08/22 04:27 36.4 C L 73 16 145/68 H 97 Room Air O2 Del Method 03/08/22 11:00 Room Air 03/08/22 11:53 03/08/22 08:24 03/08/22 04:27 Laboratory Results Laboratory Results WBC 7.70 K/ul (4.8-10.8) 03/08/22 06:40 RBC 2.87 M/uL (3.93-5.22) L 03/08/22 06:40 Hgb 8.4 g/dl (12.0-16.0) L 03/08/22 06:40 Hct 26.1 % (34.1-44.9) L 03/08/22 06:40 MCV 90.9 fL (80.0-100.0) 03/08/22 06:40 MCH 29.3 pg (25.0-34.0) 03/08/22 06:40 MCHC 32.2 g/dL (32.0-36.0) 03/08/22 06:40 RDW Std Deviation 54.9 fL (36.4-46.3) H 03/08/22 06:40 RDW Coeff of Francisco Javier 16.5 % (11.5-14.5) H 03/08/22 06:40 Plt Count 160 K/uL (130-400) 03/08/22 06:40 MPV 10.4 fL (9.4-12.3) 03/08/22 06:40 Immature Gran % (Auto) 0.8 % 03/05/22 11:05 Neut % (Auto) 57.8 % 03/05/22 11:05 Lymph % (Auto) 23.8 % 03/05/22 11:05 [place] % (Auto) 10.4 % 03/05/22 11:05 Eos % (Auto) 6.6 % 03/05/22 11:05 Baso % (Auto) 0.6 % 03/05/22 11:05 Neut # (Auto) 6.67 K/uL (1.4-6.5) H 03/05/22 11:05 Lymph # (Auto) 2.75 K/uL (1.2-3.4) 03/05/22 11:05 [place] # (Auto) 1.20 K/uL (0.24-0.82) H 03/05/22 11:05 Eos # (Auto) 0.76 K/uL (0-0.50) H 03/05/22 11:05 Baso # (Auto) 0.07 K/uL (0-0.2) 03/05/22 11:05 Immature Gran # (Auto) 0.09 K/uL (0.00-0.02) H 03/05/22 11:05 PT 12.4 Seconds (9.0-12.0) H 03/05/22 11:05 INR 1.2 (0.9-1.1) H 03/05/22 11:05 APTT 26.0 Seconds (21.0-31.0) 03/05/22 11:05 PTT Ratio 0.9 03/05/22 11:05 Sodium 138 mmol/L (136-145) 03/08/22 06:40 Potassium 4.0 mmol/L (3.5-5.1) 03/08/22 06:40 Chloride 108 mmol/L (98-107) H 03/08/22 06:40 Carbon Dioxide 25 mmol/L (21-32) 03/08/22 06:40 Anion Gap 5 (3-11) 03/08/22 06:40 BUN 21 mg/dl (6-23) 03/08/22 06:40 Creatinine 1.04 mg/dl (0.6-1.2) 03/08/22 06:40 Est Cr Clr Drug Dosing 38.2 ml/min 03/08/22 06:40 Est GFR ( Amer) 58.4 ml/min 03/08/22 06:40 Est GFR (Non-Af Amer) 50.3 ml/min 03/08/22 06:40 BUN/Creatinine Ratio 20.2 (10-20) H 03/08/22 06:40 Glucose 123 mg/dl (70-99(Fasting)) H 03/08/22 06:40 Lactate 2.0 mmol/L (0.4-2.0) 03/05/22 11:30 Calcium 8.6 mg/dl (8.5-10.1) 03/08/22 06:40 Phosphorus 3.5 mg/dl (2.5-4.9) 03/06/22 05:47 Magnesium 1.7 mg/dl (1.7-2.4) 03/08/22 06:40 Iron 84 mcg/dl (35-150) 03/07/22 07:41 Unsaturated IBC 175 mcg/dl (155-355) 03/07/22 07:41 Total Bilirubin 0.5 mg/dl (0.2-1.0) 03/05/22 11:05 AST 46 U/L (13-39) H 03/05/22 11:05 ALT 42 U/L (7-52) 03/05/22 11:05 Alkaline Phosphatase 198 U/L (34-104) H 03/05/22 11:05 Troponin I High Sens 26.3 pg/ml (0-14) H 03/06/22 05:47 Total Protein 6.1 gm/dl (6.0-8.3) 03/05/22 11:05 Albumin 3.7 gm/dl (3.4-5.0) 03/05/22 11:05 Globulin 2.4 gm/dl (2.5-4.0) L 03/05/22 11:05 Albumin/Globulin Ratio 1.5 (0.9-2) 03/05/22 11:05 Vitamin B12 192 pg/ml (180-914) 03/07/22 07:41 Folate > 22.30 ng/ml (>5.38) 03/07/22 07:41 Procalcitonin 0.15 ng/ml (0-0.5) 03/05/22 11:05 TSH 0.812 uIu/ml (0.300-4.500) 03/06/22 05:47 Urine Color Yellow 03/05/22 16:50 Urine Appearance Clear (Clear) 03/05/22 16:50 Urine pH 5.0 (4.5-7.5) 03/05/22 16:50 Ur Specific [place] 1.013 (1.000-1.030) 03/05/22 16:50 Urine Protein Negative (Negative) 03/05/22 16:50 Urine Glucose (UA) Negative (Negative) 03/05/22 16:50 Urine Ketones Negative (Negative) 03/05/22 16:50 Urine Blood Negative (Negative) 03/05/22 16:50 Urine Nitrite Negative (Negative) 03/05/22 16:50 Urine Bilirubin Negative (Negative) 03/05/22 16:50 Urine Urobilinogen Negative (Negative) 03/05/22 16:50 Ur Leukocyte Esterase Trace (Negative) H 03/05/22 16:50 Urine WBC (Auto) 1-5 /hpf (0-5) 03/05/22 16:50 Urine RBC (Auto) 0-4 /hpf (0-4) 03/05/22 16:50 U Hyaline Cast (Auto) 1-5 /lpf (0-5) 03/05/22 16:50 U Epithel Cells (Auto) 20-30 /lpf (0-5) H 03/05/22 16:50 Urine Bacteria (Auto) Negative (Negative) 03/05/22 16:50 Digoxin 0.7 ng/ml (0.8-2.0) L 03/05/22 12:00 SARS-CoV-2 (PCR) POSITIVE (Negative) A* 03/05/22 12:30 Influenza Type A (PCR) Negative (Neg) 03/05/22 12:30 Influenza Type B (PCR) Negative (Neg) 03/05/22 12:30 RSV (RT-PCR) Negative (Neg) 03/05/22 12:30 Blood Type O Positive 03/06/22 14:54 Blood Type Recheck O Positive 03/06/22 15:45 Antibody Screen NEGATIVE 03/06/22 14:54 Crossmatch See Detail 03/06/22 14:54 Impressions Chest X-Ray 03/05/22 11:03 XR chest 1V portable CLINICAL HISTORY: SEPSIS TECHNIQUE: Single frontal radiograph of the chest was obtained. Comparison: Comparison is made to chest radiograph 01/04/2022 FINDINGS: Cervical spinal fixation hardware is seen. The aorta is tortuous. The remainder of the cardiomediastinal silhouette is unremarkable. The lungs are clear. No evidence of pleural effusion or pneumothorax. IMPRESSION: No acute abnormalities and in particular no evidence of pneumonia. ACT 112: Negative or not required by law. Electronically signed by: Christian Murray M.D. 03/05/2022 12:02 PM Diagnostic Findings Telemetry reviewed: NSR with runs of atrial tach vs atrial flutter. Frequent PACs. Several sinus pauses of 3.0 seconds this afternoon EKG this afternoon: NSR with PACs Nonspecific ST and T wave abnormality QT/QTc 338/354 ms EKG on admission 03/05/22: Normal sinus rhythm Left ventricular hypertrophy with repolarization abnormality Abnormal ECG When compared with ECG of 04-JAN-2022 16:13, Sinus rhythm has replaced Atrial flutter Nonspecific T wave abnormality no longer evident in Anterior leads QT 360/418 ms echo results reviewed from November 2021:: Normal LV chamber size with mild concentric LVH. Sigmoid appearing septum. Normal LV systolic function with ejection fraction 60 to 65%. No segmental left ventricular wall motion abnormalities are noted. Mild MR. Mild TR. Severe left atrial enlargement.
--- NOTE | 2022-03-08 18:12 | Electrocardiogram Report ---
Test Reason : Blood Pressure : / mmHG Vent. Rate : 066 BPM Atrial Rate : 066 BPM P-R Int : 184 ms QRS Dur : 082 ms QT Int : 338 ms P-R-T Axes : 069 024 006 degrees QTc Int : 354 ms Sinus rhythm with Premature atrial complexes Nonspecific ST and T wave abnormality Abnormal ECG When compared with ECG of 05-MAR-2022 11:01, Premature atrial complexes are now Present Nonspecific T wave abnormality, worse in Lateral leads QT has shortened Confirmed by Elmer Dahl ([id number]) on 03/08/2022 6:12:18 PM Referred By: Florentin Calvo Confirmed By:Royce Dahl
[2022-03-08] MEDS: allopurinoL 100 MG TAB PO SCH (20:05)
[2022-03-08] MEDS: ASPIRIN 81 MG ECTAB PO SCH (20:05)
[2022-03-08] MEDS: COLCHICINE 0.6 MG TAB PO SCH (20:06)
[2022-03-08] MEDS: MONTELUKAST SODIUM 10 MG TABLET PO SCH (20:06)
[2022-03-08] MEDS: FOLIC ACID 1 MG TAB PO SCH (20:06)
[2022-03-08] MEDS ORDERED: SOTALOL HCL 80 MG TAB PO SCH (21:00)
[2022-03-08] MEDS: MELATONIN 3 MG TAB PO PRN (21:07)
[2022-03-09] MEDS: LEVOTHYROXINE SODIUM 137 MCG TABLET PO SCH (06:01)
[2022-03-09 07:16] LABS: BUN Creatinine Ratio 19.4 (10-20); Calcium 9.1 mg/dl (8.5-10.1); Creatinine Clr Calc Pharmacy 43.8 ml/min; Est GFR (African American) 62.7 ml/min; Est GFR (Non-African American) 54.1 ml/min
[2022-03-09 07:27] LABS: Hematocrit (blood only) 30.2 % (34.1-44.9); Hemoglobin 9.8 g/dl (12.0-16.0); Mean Corpuscular Hemoglobin 29.4 pg (25.0-34.0); Mean Corpuscular Hgb Conc 32.5 g/dL (32.0-36.0); Mean Corpuscular Volume 90.7 fL (80.0-100.0); Mean Platelet Volume 11.7 fL (9.4-12.3); Platelet Count 197 K/uL (130-400); RDW Coefficient of Variation 16.4 % (11.5-14.5); Red Blood Count 3.33 M/uL (3.93-5.22); White Blood Count 7.88 K/ul (4.8-10.8)
[2022-03-09] MEDS: CHOLECALCIFEROL 1,000 UNITS 25 MCG TAB PO SCH (08:33)
[2022-03-09] MEDS: CYANOCOBALAMIN (B-12) 100 MCG TABLET PO SCH (08:33)
[2022-03-09] MEDS: VENLAFAXINE HCL XR 150 MG CAPXR PO SCH (08:33)
[2022-03-09] MEDS: CHOLECALCIFEROL 5,000 UNITS 125 MCG TAB PO SCH (08:33)
[2022-03-09] MEDS: FERROUS SULFATE 325 MG TAB PO SCH (08:33)
[2022-03-09] MEDS: ATORVASTATIN 20 MG TAB PO SCH (08:33)
[2022-03-09] MEDS: PANTOprazole 40 MG in SYRINGE 0 ML IV SCH ×2 (09:36→20:35)
--- NOTE | 2022-03-09 11:13 | Cardiology Progress Note ---
Date of Service March 09, 2022 Assessment & Plan (1) Acute on chronic anemia: (2) Near syncope: (3) Atrial fibrillation and flutter: Plan Patient presenting with symptomatic anemia. 1 unit PRBC's transfused. plan for colonoscopy and EGD on Friday Paroxysmal atrial fibrillation currently remaining in sinus rhythm. Patient to be in hospital for planned procedure Friday we will use opportunity on telemetry to initiate antiarrhythmic therapy Plan: Initiation of sotalol 80 mg twice per day following EKGs and telemetry discussed with patient daughter Continue on telemetry. Hold Eliquis in prep for surgery. Admission and Anticipated Discharge Date Admission Date: March 06, 2022 Subjective Patient seen and examined, chart, medications, telemetry reviewed. No arrhythmias on telemetry heart rate 70s No chest pains, shortness of breath, dizziness. No nausea or abdominal pain Review of Systems 2 Review of Systems: All systems reviewed & are unremarkable except as noted in Subjective Physical Exam Constitutional: WD/WN, vitals as above Eyes: PERRL, conjunctivae normal, anicteric sclerae Neck: trachea midline, no thyromegaly Respiratory: no respiratory distress Auscultation: lungs clear to auscultation bilaterally Cardiovascular: Rate/Rhythm: regular rate and regular rhythm Heart Sounds: no murmur Vessels: no JVD Extremities: no edema Gastrointestinal (Abdomen): normal bowel sounds, soft, nontender, no hepatosplenomegaly Neurologic: PERRL, EOMI, accommodation nl, no face palsy, no dysarthria Psychiatric: A+Ox3, euthymic affect Results & Data ([facility]) Vital Signs (Past 12 Hours) Vital Signs Temp Pulse Pulse Pulse Resp BP Pulse Ox 03/09/22 07:23 36.5 C 69 19 143/66 H 96 03/09/22 07:00 76 03/09/22 04:00 36.7 C 104 H 18 153/74 H 95 03/09/22 03:14 77 03/09/22 00:02 76 Pulse Ox O2 Del Method O2 Del Method 03/09/22 07:23 Room Air 03/09/22 07:00 03/09/22 04:00 Room Air 03/09/22 03:14 95 Room Air 03/09/22 00:02 Laboratory Results Laboratory Results - last 24 hr 07/16/22 07/16/22 07/16/22 06:11 06:11 07:22 WBC 7.88 RBC 3.33 L Hgb 9.8 L Hct 30.2 L MCV 90.7 MCH 29.4 MCHC 32.5 RDW Std Deviation 53.0 H RDW Coeff of Francisco Javier 16.4 H Plt Count 197 MPV 11.7 Sodium 141 Potassium 4.0 Chloride 107 Carbon Dioxide 27 Anion Gap 7 BUN 19 Creatinine 0.98 Est Cr Clr Drug Dosing 43.8 Est GFR ( Amer) 62.7 Est GFR (Non-Af Amer) 54.1 BUN/Creatinine Ratio 19.4 Glucose 113 H POC Glucose 113 H Calcium 9.1 Magnesium 2.0 ECG Additional Comments: 09-MAR-2022 05:58:17 [facility] ROUTINE RETRIEVAL Sinus rhythm with 1st degree A- V block Nonspecific T wave abnormality Abnormal ECG When compared with ECG of 08-MAR-2022 15:14, Premature atrial complexes are no longer Present FL interval has increased QT not prolonged
--- NOTE | 2022-03-09 11:24 | Electrocardiogram Report ---
Test Reason : Blood Pressure : / mmHG Vent. Rate : 071 BPM Atrial Rate : 071 BPM P-R Int : 220 ms QRS Dur : 080 ms QT Int : 352 ms P-R-T Axes : 073 015 -40 degrees QTc Int : 382 ms Sinus rhythm with 1st degree A-V block Nonspecific T wave abnormality Abnormal ECG When compared with ECG of 08-MAR-2022 15:14, Premature atrial complexes are no longer Present MD interval has increased Confirmed by Carlos Karimi ([id number]) on 03/09/2022 11:24:33 AM Referred By: Florentin Calvo Confirmed By:Carlos Karimi
[2022-03-09] MEDS: SOTALOL HCL 80 MG TAB PO SCH ×2 (11:39→20:35)
--- NOTE | 2022-03-09 12:40 | Hospitalist Progress Note ---
Date of Service March 09, 2022 Assessment & Plan (1) Near syncope: (2) TIFFANY (acute kidney injury): (3) Dehydration: (4) Acute on chronic anemia: Plan Near syncope -Appears most consistent with dehydration due to poor appetite vs anemia -Orthostatic vital + on admission -TTE from 11/2021 with normal EF -TSH normal TIFFANY -due to dehydration, poor appetite -s/p 1.5L NSS in ER with improvement in blood pressure. Cr now back to baseline Acute on chronic anemia - iron studies normal, B12 low normal, folate normal -Hb down to 7.2 (baseline 10-12), Eliquis held. -Protonix IV BID -s/p 1 unit pRBC 03/06 with appropriate response . Repeat Hb 9.8 today -started B12 supplement -GI consulted, plan for EGD and colonoscopy Friday. Clears on Friday and will be NPO pM Friday evening Anorexia -poor appetite related to recent covid 19 infection. 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 -start B12 supplement PAF SVT -Eliquis--hold, -Keep K>4, Mg>2 -Further management per Cardiology Asthma -well controlled, continue home medications DVT ppx -SCDs for now, Eliquis on hold Code status -Full, discussed with patient Disposition -Return home after endoscopies Admission and Anticipated Discharge Date Admission Date: March 06, 2022 Subjective Still feels weak, getting up out of bed more Denies light headedness/dizziness, chest pain or palpitations 1 dark BM yesterday Physical Exam Physical Exam: Appears stated age, pleasant and comfortable ENMT: Mucous membrane moist, normocephalic, atraumatic Respiratory: breathing comfortably on room air, no wheezing/rhonchi/rales Cardiovascular: regular rate and rhythm, no murmurs Gastrointestinal (Abdomen): soft, non tender Musculoskeletal: No edema, no cyanosis or clubbing Skin: No rash or redness Neurologic: awake, alert, spontaneously moving extremities Results & Data Results & Data ([facility]) Vital Signs (Past 12 Hours) Vital Signs Temp Pulse Pulse Pulse Resp BP Pulse Ox 03/09/22 11:27 36.7 C 73 19 130/70 99 03/09/22 07:23 36.5 C 69 19 143/66 H 96 03/09/22 07:00 76 03/09/22 04:00 36.7 C 104 H 18 153/74 H 95 03/09/22 03:14 77 Pulse Ox O2 Del Method O2 Del Method 03/09/22 11:27 Room Air 03/09/22 07:23 Room Air 03/09/22 07:00 03/09/22 04:00 Room Air 03/09/22 03:14 95 Room Air Laboratory Results Short CBC 03/09/22 Range/Units 06:11 WBC 7.88 (4.8-10.8) K/ul Hgb 9.8 L (12.0-16.0) g/dl Hct 30.2 L (34.1-44.9) % Plt Count 197 (130-400) K/uL BMP 03/09/22 06:11 Sodium 141 Potassium 4.0 Chloride 107 Carbon Dioxide 27 BUN 19 Creatinine 0.98 Glucose 113 H Calcium 9.1 Medications Administered Current Inpatient Medications Allopurinol (Allopurinol 100 Mg Tab) 100 mg PO HS JULIO CESAR Stop: 04/04/22 20:59 Last Admin: 03/08/22 20:05 Dose: 100 mg Alprazolam (Alprazolam 0.5 Mg Tablet) 0.5 mg PO QID PRN PRN Reason: Anxiety Stop: 04/04/22 15:50 Last Admin: 03/05/22 20:53 Dose: 0.5 mg Apixaban (Apixaban 5 Mg Tablet) 5 mg PO BID JULIO CESAR Stop: 04/04/22 20:59 Last Admin: 03/06/22 08:23 Dose: 5 mg Aspirin (Aspirin 81 Mg Ectab) 81 mg PO HS JULIO CESAR Stop: 04/04/22 20:59 Last Admin: 03/08/22 20:05 Dose: 81 mg Atorvastatin Calcium (Atorvastatin 20 Mg Tab) 20 mg PO QAM JULIO CESAR Stop: 04/05/22 08:59 Last Admin: 03/09/22 08:33 Dose: 20 mg Colchicine (Colchicine 0.6 Mg Tab) 0.6 mg PO QPM JULIO CESAR Stop: 04/04/22 20:59 Last Admin: 03/08/22 20:06 Dose: 0.6 mg Cyanocobalamin (Cyanocobalamin (B-12) 100 Mcg Tablet) 100 mcg PO QAM JULIO CESAR Stop: 04/07/22 08:59 Last Admin: 03/09/22 08:33 Dose: 100 mcg Ferrous Sulfate (Ferrous Sulfate 325 Mg Tab) 325 mg PO DAILY JULIO CESAR Stop: 04/05/22 08:59 Last Admin: 03/09/22 08:33 Dose: 325 mg Folic Acid (Folic Acid 1 Mg Tab) 1 mg PO HS JULIO CESAR Stop: 04/04/22 20:59 Last Admin: 03/08/22 20:06 Dose: 1 mg Pantoprazole Sodium 40 mg/ (Syringe) 10 mls @ 5 mls/min IV BID JULIO CESAR Stop: 04/05/22 20:59 Last Admin: 03/09/22 09:36 Dose: 5 mls/min Ipratropium [place] (Ipratropium [place] Nasal [place] 0.06% 15ml) 1 sprays OLVIN DAILY PRN PRN Reason: Sinus Symptoms Stop: 04/04/22 16:27 Levothyroxine Sodium (Levothyroxine Sodium 137 Mcg Tablet) 137 mcg PO DAILYBB JULIO CESAR Stop: 04/05/22 06:29 Last Admin: 03/09/22 06:01 Dose: 137 mcg Melatonin (Melatonin 3 Mg Tab) 3 mg PO HS PRN PRN Reason: Sleep Stop: 04/06/22 20:51 Last Admin: 03/08/22 21:07 Dose: 3 mg Montelukast Sodium (Montelukast Sodium 10 Mg Tablet) 10 mg PO PM JULIO CESAR Stop: 04/04/22 20:59 Last Admin: 03/08/22 20:06 Dose: 10 mg Polyethylene Glycol (Polyethylene (Miralax) 17 Gm Pack) 68 gm PO ONCE ONE Stop: 03/10/22 15:01 Polyethylene Glycol (Polyethylene (Miralax) 17 Gm Pack) 68 gm PO ONCE ONE Stop: 03/10/22 08:34 Sotalol HCl (Sotalol Hcl 80 Mg Tab) 80 mg PO BID JULIO CESAR Stop: 04/08/22 10:44 Last Admin: 03/09/22 11:39 Dose: 80 mg Venlafaxine HCl (Venlafaxine Hcl Xr 150 Mg Capxr) 150 mg PO QAM JULIO CESAR Stop: 04/05/22 08:59 Last Admin: 03/09/22 08:33 Dose: 150 mg Vitamin D (Cholecalciferol 1,000 Units 25 Mcg Tab) 1,000 units PO QAM JULIO CESAR Stop: 04/05/22 08:59 Last Admin: 03/09/22 08:33 Dose: 1,000 units Vitamin D (Cholecalciferol 5,000 Units 125 Mcg Tab) [facility] [place] Stop: 04/05/22 08:59 Last Admin: 03/09/22 08:33 Dose: 5,000 units
[2022-03-09] MEDS: ASPIRIN 81 MG ECTAB PO SCH (20:31)
[2022-03-09] MEDS: allopurinoL 100 MG TAB PO SCH (20:31)
[2022-03-09] MEDS: FOLIC ACID 1 MG TAB PO SCH (20:33)
[2022-03-09] MEDS: COLCHICINE 0.6 MG TAB PO SCH (20:33)
[2022-03-09] MEDS: MONTELUKAST SODIUM 10 MG TABLET PO SCH (20:34)
[2022-03-09] MEDS: MELATONIN 3 MG TAB PO PRN (22:25)
[2022-03-10] MEDS: LEVOTHYROXINE SODIUM 137 MCG TABLET PO SCH (05:43)
[2022-03-10 06:56] LABS: Calcium 8.8 mg/dl (8.5-10.1); Creatinine Clr Calc Pharmacy 39.7 ml/min; Est GFR (African American) 61.2 ml/min; Est GFR (Non-African American) 52.8 ml/min; Magnesium 1.8 mg/dl (1.7-2.4); Potassium 4.2 mmol/L (3.5-5.1)
[2022-03-10 06:58] LABS: Hematocrit (blood only) 27.1 % (34.1-44.9); Hemoglobin 8.6 g/dl (12.0-16.0); Mean Corpuscular Hgb Conc 31.7 g/dL (32.0-36.0); Mean Corpuscular Volume 91.2 fL (80.0-100.0); Mean Platelet Volume 11.5 fL (9.4-12.3); Platelet Count 197 K/uL (130-400); RDW Coefficient of Variation 16.2 % (11.5-14.5); RDW Standard Deviation 53.1 fL (36.4-46.3); Red Blood Count 2.97 M/uL (3.93-5.22)
[2022-03-10] MEDS: INSULIN ASPART PER UNIT SC SCH ×4 (08:28→22:38)
[2022-03-10] MEDS ORDERED: POLYETHYLENE (MIRALAX) 17 GM PACK PO ONE ×2 (08:33→15:00)
[2022-03-10] MEDS: CYANOCOBALAMIN (B-12) 100 MCG TABLET PO SCH (08:41)
[2022-03-10] MEDS: ATORVASTATIN 20 MG TAB PO SCH (08:41)
[2022-03-10] MEDS: VENLAFAXINE HCL XR 150 MG CAPXR PO SCH (08:41)
[2022-03-10] MEDS: FERROUS SULFATE 325 MG TAB PO SCH (08:41)
[2022-03-10] MEDS: SOTALOL HCL 80 MG TAB PO SCH ×2 (08:41→19:25)
[2022-03-10] MEDS: CHOLECALCIFEROL 5,000 UNITS 125 MCG TAB PO SCH (08:41)
[2022-03-10] MEDS: MAGNESIUM SULFATE / D5W 1 GM/100 ML BAG IV SCH ×2 (08:41→10:16)
[2022-03-10] MEDS: CHOLECALCIFEROL 1,000 UNITS 25 MCG TAB PO SCH (08:42)
[2022-03-10] MEDS: PANTOprazole 40 MG in SYRINGE 0 ML IV SCH ×2 (10:16→19:26)
--- NOTE | 2022-03-10 10:45 | Cardiology Progress Note ---
Date of Service March 10, 2022 Assessment & Plan (1) Acute on chronic anemia: (2) Near syncope: (3) Atrial fibrillation and flutter: Plan Patient presenting with symptomatic anemia. 1 unit PRBC's transfused. plan for colonoscopy and EGD on Friday Paroxysmal atrial fibrillation currently remaining in sinus rhythm. Patient to be in hospital for planned procedure Friday we will use opportunity on telemetry to initiate antiarrhythmic therapy Plan: Patient tolerating sotalol without tachycardia or bradycardia arrhythmia. EKG ordered for a.m. Admission and Anticipated Discharge Date Admission Date: March 06, 2022 Subjective Patient was seen and examined, chart, medications, telemetry reviewed. No cardiac complaints or issues. Tolerating sotalol without tacky or bradycardia arrhythmias. EKG without significant QT prolongation. Anticipates GI procedure in a.m. Physical Exam Constitutional: WD/WN, vitals as above Eyes: PERRL, conjunctivae normal, anicteric sclerae Neck: trachea midline, no thyromegaly Respiratory: no respiratory distress Auscultation: lungs clear to auscultation bilaterally Cardiovascular: Rate/Rhythm: regular rate and regular rhythm Heart Sounds: no murmur Vessels: no JVD Extremities: no edema Gastrointestinal (Abdomen): normal bowel sounds, soft, nontender, no hepatosplenomegaly Neurologic: PERRL, EOMI, accommodation nl, no face palsy, no dysarthria Psychiatric: A+Ox3, euthymic affect Results & Data ([facility]) Vital Signs (Past 12 Hours) Vital Signs Temp Pulse Pulse Resp BP Pulse Ox O2 Del Method 03/10/22 07:40 36.5 C 66 16 124/64 94 Room Air 03/10/22 04:37 36.3 C L 68 17 134/64 95 Room Air 03/10/22 02:11 66 Laboratory Results Laboratory Results - last 24 hr 03/09/22 03/09/22 03/09/22 11:28 16:35 20:13 WBC RBC Hgb Hct MCV MCH MCHC RDW Std Deviation RDW Coeff of Francisco Javier Plt Count MPV Sodium Potassium Chloride Carbon Dioxide Anion Gap BUN Creatinine Est Cr Clr Drug Dosing Est GFR ( Amer) Est GFR (Non-Af Amer) BUN/Creatinine Ratio Glucose POC Glucose 145 H 123 H 165 H Calcium Magnesium 03/10/22 03/10/22 03/10/22 05:36 05:36 07:19 WBC 7.80 RBC 2.97 L Hgb 8.6 L Hct 27.1 L MCV 91.2 MCH 29.0 MCHC 31.7 L RDW Std Deviation 53.1 H RDW Coeff of Francisco Javier 16.2 H Plt Count 197 MPV 11.5 Sodium 138 Potassium 4.2 Chloride 107 Carbon Dioxide 26 Anion Gap 5 BUN 19 Creatinine 1.00 Est Cr Clr Drug Dosing 39.7 Est GFR ( Amer) 61.2 Est GFR (Non-Af Amer) 52.8 BUN/Creatinine Ratio 19.0 Glucose 106 H POC Glucose 109 H Calcium 8.8 Magnesium 1.8 03/10/22 11:18 WBC RBC Hgb Hct MCV MCH MCHC RDW Std Deviation RDW Coeff of Francisco Javier Plt Count MPV Sodium Potassium Chloride Carbon Dioxide Anion Gap BUN Creatinine Est Cr Clr Drug Dosing Est GFR ( Amer) Est GFR (Non-Af Amer) BUN/Creatinine Ratio Glucose POC Glucose 187 H Calcium Magnesium
--- NOTE | 2022-03-10 12:18 | Electrocardiogram Report ---
Test Reason : Blood Pressure : / mmHG Vent. Rate : 069 BPM Atrial Rate : 069 BPM P-R Int : 170 ms QRS Dur : 074 ms QT Int : 368 ms P-R-T Axes : 067 019 -10 degrees QTc Int : 394 ms Normal sinus rhythm with occasional Premature atrial complexes Nonspecific ST and T wave abnormality Abnormal ECG When compared with ECG of 09-MAR-2022 05:58, CA interval has decreased Confirmed by Carlos Karimi ([id number]) on 03/10/2022 12:18:21 PM Referred By: Florentin Clavo Confirmed By:Carlos Karimi
--- NOTE | 2022-03-10 12:47 | Electrocardiogram Report ---
Test Reason : Blood Pressure : / mmHG Vent. Rate : 067 BPM Atrial Rate : 067 BPM P-R Int : 200 ms QRS Dur : 080 ms QT Int : 384 ms P-R-T Axes : 063 031 015 degrees QTc Int : 405 ms Normal sinus rhythm with sinus arrhythmia Nonspecific T wave abnormality Abnormal ECG When compared with ECG of 09-MAR-2022 12:41, (unconfirmed) No significant change was found Confirmed by Carlos Karimi ([id number]) on 03/10/2022 12:47:29 PM Referred By: Florentin Calvo Confirmed By:Carlos Karimi
--- NOTE | 2022-03-10 12:55 | Electrocardiogram Report ---
Test Reason : Blood Pressure : / mmHG Vent. Rate : 063 BPM Atrial Rate : 063 BPM P-R Int : 218 ms QRS Dur : 076 ms QT Int : 430 ms P-R-T Axes : 041 026 -16 degrees QTc Int : 440 ms Sinus rhythm with 1st degree A-V block Nonspecific T wave abnormality Abnormal ECG When compared with ECG of 09-MAR-2022 22:16, (unconfirmed) No significant change was found Confirmed by Carlos Karimi ([id number]) on 03/10/2022 12:55:08 PM Referred By: Florentin Calvo Confirmed By:Carlos Karimi
--- NOTE | 2022-03-10 13:16 | Hospitalist Progress Note ---
Date of Service March 10, 2022 Assessment & Plan (1) Near syncope: (2) TIFFANY (acute kidney injury): (3) Dehydration: (4) Acute on chronic anemia: Plan Near syncope -Appears most consistent with dehydration due to poor appetite vs anemia -Orthostatic vital + on admission -TTE from 11/2021 with normal EF -TSH normal TIFFNAY -due to dehydration, poor appetite -s/p 1.5L NSS in ER with improvement in blood pressure. Cr now back to baseline Acute on chronic anemia - iron studies normal, B12 low normal, folate normal -Hb down to 7.2 (baseline 10-12), Eliquis held. -Protonix IV BID -s/p 1 unit pRBC 03/06 with appropriate response . Hemoglobin has remained stable -started B12 supplement -GI consulted, plan for EGD and colonoscopy tomorrow. Clears today then NPO after midnight Anorexia -poor appetite related to recent covid 19 infection. 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 Denies light headed/dizziness. Denies chest pain, palpitations, shortness of breath Physical Exam Physical Exam: Pleasant, comfortable, no acute distress Respiratory: breathing comfortably on room air, no wheezing/rhonchi/rales Cardiovascular: regular rate and rhythm, no murmurs/rubs/gallops Gastrointestinal (Abdomen): soft, non tender, non distended Musculoskeletal: no edema, no cyanosis or clubbing Neurologic: awake, alert, spontaneously moving extremities Results & Data Results & Data ([facility]) Vital Signs (Past 12 Hours) Vital Signs Temp Pulse Pulse Resp BP Pulse Ox O2 Del Method 03/10/22 11:44 36.5 C 67 16 116/78 99 Room Air 03/10/22 08:00 66 03/10/22 07:40 36.5 C 66 16 124/64 94 Room Air 03/10/22 04:37 36.3 C L 68 17 134/64 95 Room Air 03/10/22 02:11 66 Laboratory Results Short CBC 03/10/22 Range/Units 05:36 WBC 7.80 (4.8-10.8) K/ul Hgb 8.6 L (12.0-16.0) g/dl Hct 27.1 L (34.1-44.9) % Plt Count 197 (130-400) K/uL BMP 03/10/22 05:36 Sodium 138 Potassium 4.2 Chloride 107 Carbon Dioxide 26 BUN 19 Creatinine 1.00 Glucose 106 H Calcium 8.8 Medications Administered Current Inpatient Medications Allopurinol (Allopurinol 100 Mg Tab) 100 mg PO HS JULIO CESAR Stop: 04/04/22 20:59 Last Admin: 03/09/22 20:31 Dose: 100 mg Alprazolam (Alprazolam 0.5 Mg Tablet) 0.5 mg PO QID PRN PRN Reason: Anxiety Stop: 04/04/22 15:50 Last Admin: 03/05/22 20:53 Dose: 0.5 mg Apixaban (Apixaban 5 Mg Tablet) 5 mg PO BID JULIO CESAR Stop: 04/04/22 20:59 Last Admin: 03/06/22 08:23 Dose: 5 mg Aspirin (Aspirin 81 Mg Ectab) 81 mg PO HS JULIO CESAR Stop: 04/04/22 20:59 Last Admin: 03/09/22 20:31 Dose: 81 mg Atorvastatin Calcium (Atorvastatin 20 Mg Tab) 20 mg PO QAM JULIO CESAR Stop: 04/05/22 08:59 Last Admin: 03/10/22 08:41 Dose: 20 mg Colchicine (Colchicine 0.6 Mg Tab) 0.6 mg PO QPM JULIO CESAR Stop: 04/04/22 20:59 Last Admin: 03/09/22 20:33 Dose: 0.6 mg Cyanocobalamin (Cyanocobalamin (B-12) 100 Mcg Tablet) 100 mcg PO QAM JULIO CESAR Stop: 04/07/22 08:59 Last Admin: 03/10/22 08:41 Dose: 100 mcg Ferrous Sulfate (Ferrous Sulfate 325 Mg Tab) 325 mg PO DAILY JULIO CESAR Stop: 04/05/22 08:59 Last Admin: 03/10/22 08:41 Dose: 325 mg Folic Acid (Folic Acid 1 Mg Tab) 1 mg PO HS JULIO CESAR Stop: 04/04/22 20:59 Last Admin: 03/09/22 20:33 Dose: 1 mg Pantoprazole Sodium 40 mg/ (Syringe) 10 mls @ 5 mls/min IV BID JULIO CESAR Stop: 04/05/22 20:59 Last Admin: 03/10/22 10:16 Dose: 5 mls/min Insulin Aspart (Insulin Aspart Per Unit) 0 units SC ACHS JULIO CESAR Stop: 04/09/22 07:29 Last Admin: 03/10/22 12:35 Dose: Not Given Ipratropium [place] (Ipratropium [place] Nasal [place] 0.06% 15ml) 1 sprays OLVIN DAILY PRN PRN Reason: Sinus Symptoms Stop: 04/04/22 16:27 Levothyroxine Sodium (Levothyroxine Sodium 137 Mcg Tablet) 137 mcg PO DAILYBB JULIO CESAR Stop: 04/05/22 06:29 Last Admin: 03/10/22 05:43 Dose: 137 mcg Melatonin (Melatonin 3 Mg Tab) 3 mg PO HS PRN PRN Reason: Sleep Stop: 04/06/22 20:51 Last Admin: 03/09/22 22:25 Dose: 3 mg Montelukast Sodium (Montelukast Sodium 10 Mg Tablet) 10 mg PO PM JULIO CESAR Stop: 04/04/22 20:59 Last Admin: 03/09/22 20:34 Dose: 10 mg Polyethylene Glycol (Polyethylene (Miralax) 17 Gm Pack) 68 gm PO ONCE ONE Stop: 03/10/22 15:01 Sotalol HCl (Sotalol Hcl 80 Mg Tab) 80 mg PO BID JULIO CESAR Stop: 04/08/22 10:44 Last Admin: 03/10/22 08:41 Dose: 80 mg Venlafaxine HCl (Venlafaxine Hcl Xr 150 Mg Capxr) 150 mg PO QAM JULIO CESAR Stop: 04/05/22 08:59 Last Admin: 03/10/22 08:41 Dose: 150 mg Vitamin D (Cholecalciferol 1,000 Units 25 Mcg Tab) 1,000 units PO QAM JULIO CESAR Stop: 04/05/22 08:59 Last Admin: 03/10/22 08:42 Dose: 1,000 units Vitamin D (Cholecalciferol 5,000 Units 125 Mcg Tab) 5,000 units PO QAM JULIO CESAR Stop: 04/05/22 08:59 Last Admin: 03/10/22 08:41 Dose: 5,000 units
[2022-03-10] MEDS ORDERED: ACETAMINOPHEN 325 MG TAB PO PRN (19:07)
[2022-03-10] MEDS: MONTELUKAST SODIUM 10 MG TABLET PO SCH (19:25)
[2022-03-10] MEDS: FOLIC ACID 1 MG TAB PO SCH (19:25)
[2022-03-10] MEDS: COLCHICINE 0.6 MG TAB PO SCH (19:25)
[2022-03-10] MEDS: ASPIRIN 81 MG ECTAB PO SCH (19:25)
[2022-03-10] MEDS: allopurinoL 100 MG TAB PO SCH (19:25)
[2022-03-11] MEDS: LEVOTHYROXINE SODIUM 137 MCG TABLET PO SCH (06:15)
[2022-03-11 07:35] LABS: Hematocrit (blood only) 29.2 % (34.1-44.9); Hemoglobin 9.3 g/dl (12.0-16.0); Mean Corpuscular Hemoglobin 29.4 pg (25.0-34.0); Mean Corpuscular Hgb Conc 31.8 g/dL (32.0-36.0); Mean Corpuscular Volume 92.4 fL (80.0-100.0); Platelet Count 216 K/uL (130-400); RDW Coefficient of Variation 16.2 % (11.5-14.5); RDW Standard Deviation 54.5 fL (36.4-46.3); Red Blood Count 3.16 M/uL (3.93-5.22); White Blood Count 8.17 K/ul (4.8-10.8)
[2022-03-11 07:56] LABS: BUN Creatinine Ratio 16.2 (10-20); Calcium 9.2 mg/dl (8.5-10.1); Creatinine Clr Calc Pharmacy 35.8 ml/min; Est GFR (African American) 53.9 ml/min; Est GFR (Non-African American) 46.5 ml/min; Potassium 4.8 mmol/L (3.5-5.1)
[2022-03-11] MEDS: INSULIN ASPART PER UNIT SC SCH ×4 (08:44→21:13)
[2022-03-11] MEDS: SOTALOL HCL 80 MG TAB PO SCH (09:18)
--- NOTE | 2022-03-11 10:47 | Cardiology Progress Note ---
Date of Service March 11, 2022 Assessment & Plan (1) Acute on chronic anemia: (2) Near syncope: (3) Atrial fibrillation and flutter: Plan Patient presenting with symptomatic anemia. 1 unit PRBC's transfused. plan for colonoscopy and EGD on Friday (today), await results Paroxysmal atrial fibrillation currently remaining in sinus rhythm. Patient to be in hospital for planned procedure Friday we will use opportunity on telemetry to initiate antiarrhythmic therapy Tolerating antiarrhythmic therapy well Will anticipate resuming Eliquis on discharge if no contraindications to doing so Plan: Patient tolerating sotalol without tachycardia or bradycardia arrhythmia. Plan discharge dose of 80 mg a.m. 40 mg p.m. Admission and Anticipated Discharge Date Admission Date: March 06, 2022 Subjective Patient seen and examined, chart, medications, telemetry reviewed. Telemetry reveals no tacky or bradycardia arrhythmias. EKG without significant QT pr olongation [place] mild dizziness last evening while walking but no other issues episode occurred during bowel prep Review of Systems Review of Systems: All systems reviewed & are unremarkable except as noted in Subjective Physical Exam Constitutional: WD/WN, vitals as above Eyes: PERRL, conjunctivae normal, anicteric sclerae Neck: trachea midline, no thyromegaly Respiratory: no respiratory distress Auscultation: lungs clear to auscultation bilaterally Cardiovascular: Rate/Rhythm: regular rate and regular rhythm Heart Sounds: no murmur Vessels: no JVD Extremities: no edema Gastrointestinal (Abdomen): normal bowel sounds, soft, nontender, no hepatosplenomegaly Neurologic: PERRL, EOMI, accommodation nl, no face palsy, no dysarthria Psychiatric: A+Ox3, euthymic affect Results & Data ([facility]) Vital Signs (Past 12 Hours) Vital Signs Temp Pulse Pulse Resp BP Pulse Ox O2 Del Method 03/11/22 07:47 36.7 C 61 17 128/62 96 Room Air 03/11/22 07:16 62 03/11/22 03:44 36.6 C 69 18 125/83 98 Room Air 03/10/22 23:07 36.4 C L 63 18 123/66 99 Room Air Laboratory Results Laboratory Results - last 24 hr 03/10/22 03/10/22 03/10/22 11:18 16:05 20:01 WBC RBC Hgb Hct MCV MCH MCHC RDW Std Deviation RDW Coeff of Francisco Javier Plt Count MPV Sodium Potassium Chloride Carbon Dioxide Anion Gap BUN Creatinine Est Cr Clr Drug Dosing Est GFR ( Amer) Est GFR (Non-Af Amer) BUN/Creatinine Ratio Glucose POC Glucose 187 H 89 111 H Calcium Magnesium 03/11/22 03/11/22 03/11/22 06:44 06:44 07:12 WBC 8.17 RBC 3.16 L Hgb 9.3 L Hct 29.2 L MCV 92.4 MCH 29.4 MCHC 31.8 L RDW Std Deviation 54.5 H RDW Coeff of Francisco Javier 16.2 H Plt Count 216 MPV 11.0 Sodium 140 Potassium 4.8 Chloride 106 Carbon Dioxide 29 Anion Gap 5 BUN 18 Creatinine 1.11 Est Cr Clr Drug Dosing 35.8 Est GFR ( Amer) 53.9 Est GFR (Non-Af Amer) 46.5 BUN/Creatinine Ratio 16.2 Glucose 100 H POC Glucose 97 Calcium 9.2 Magnesium 2.0 ECG Additional Comments: 11-MAR-2022 06:32:25 [facility] ROUTINE RETRIEVAL Sinus bradycardia with 1st degree A-V block Nonspecific T wave abnormality Abnormal ECG When compared with ECG of 10-MAR-2022 21:48, (unconfirmed) Premature atrial complexes are no longer Present RI interval has increased QT has lengthened (443 QTC)
--- NOTE | 2022-03-11 12:48 | Electrocardiogram Report ---
Test Reason : Blood Pressure : / mmHG Vent. Rate : 063 BPM Atrial Rate : 063 BPM P-R Int : 178 ms QRS Dur : 072 ms QT Int : 334 ms P-R-T Axes : 028 025 -03 degrees QTc Int : 341 ms Sinus rhythm with Premature atrial complexes Nonspecific T wave abnormality Abnormal ECG When compared with ECG of 10-MAR-2022 05:06, Premature atrial complexes are now Present CA interval has decreased QT has shortened Confirmed by Carlos Karimi ([id number]) on 03/11/2022 12:48:40 PM Referred By: Florentin Calvo Confirmed By:Carlos Karimi
--- NOTE | 2022-03-11 12:56 | Electrocardiogram Report ---
Test Reason : Blood Pressure : / mmHG Vent. Rate : 059 BPM Atrial Rate : 059 BPM P-R Int : 214 ms QRS Dur : 074 ms QT Int : 448 ms P-R-T Axes : 083 023 002 degrees QTc Int : 443 ms Sinus bradycardia with 1st degree A-V block Nonspecific T wave abnormality Abnormal ECG When compared with ECG of 10-MAR-2022 21:48, (unconfirmed) Premature atrial complexes are no longer Present MS interval has increased QT has lengthened Confirmed by Carlos Karimi ([id number]) on 03/11/2022 12:56:15 PM Referred By: Florentin Calvo Confirmed By:Carlos Karimi
--- NOTE | 2022-03-11 13:55 | Anesthesiology Consultation ---
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 cephalexin Allergy Intermediate Rash/Hives/ Verified 03/05/22 11:36 Itching. furosemide Allergy Intermediate Rash/Hives/ Verified 03/05/22 11:36 Itching. gabapentin Allergy Intermediate Rash/Hives/ Verified 03/05/22 11:36 Itching. pregabalin Allergy Intermediate Rash/Hives/ Verified 03/05/22 11:36 Itching. meclizine Allergy Unknown Unknown Verified 03/05/22 11:36 methylprednisolone Allergy Unknown Rash/Hives/ Verified 03/05/22 11:36 Itching. Penicillins Allergy Unknown Unknown. Verified 03/05/22 11:36 prednisone Allergy Unknown Rash/Hives/ Verified 03/05/22 11:36 Itching. vancomycin Allergy Unknown Jodi Verified 03/05/22 11:36 syn. . nickel Allergy Unknown Verified 03/05/22 11:36 dexamethasone AdvReac Intermediate Steroid Verified 03/05/22 11:36 psychosis. Medications Home Medications Medication Instructions Recorded Confirmed Last Taken alprazolam 0.5 mg tablet 0.5 mg PO QID PRN Anxiety 04/08/19 03/05/22 Unknown folic acid 1 mg tablet 1 mg PO HS 04/08/19 03/05/22 03/04/22 lansoprazole 15 mg capsule,delayed 15 mg PO DAILY PRN heart burn 04/08/19 03/05/22 07/29/21 release montelukast 10 mg tablet 10 mg PO PM 04/08/19 03/05/22 03/04/22 venlafaxine 150 mg 150 mg PO QAM #30 caps 04/08/19 03/05/22 03/04/22 capsule,extended release 24 hr digoxin 125 mcg (0.125 mg) tablet 125 mcg PO 3XWK 06/03/20 03/05/22 03/04/22 ferrous sulfate 325 mg (65 mg 325 mg PO DAILY 06/03/20 03/05/22 03/04/22 iron) tablet ipratropium bromide 21 mcg (0.03 2 spray intranasal DAILY PRN Sinus 06/03/20 03/05/22 07/29/21 %) nasal spray Symptoms metoprolol succinate 50 mg 50 mg PO HS 06/03/20 03/05/22 03/04/22 tablet,extended release 24 hr allopurinol 100 mg tablet 100 mg PO HS 11/26/21 03/05/22 03/04/22 apixaban 5 mg tablet (Eliquis) 5 mg PO BID 11/26/21 03/05/22 03/04/22 atorvastatin 20 mg tablet 20 mg PO QAM 11/26/21 03/05/22 03/04/22 cholecalciferol (vitamin D3) 50 150 mcg PO QAM 11/26/21 03/05/22 03/04/22 mcg (2,000 unit) capsule (Vitamin D3) colchicine 0.6 mg tablet 0.6 mg PO QPM 11/26/21 03/05/22 03/04/22 levothyroxine 137 mcg tablet 137 mcg PO QAM 11/26/21 03/05/22 03/04/22 semaglutide (Ozempic) 0.25 mg subcut WK 11/26/21 03/05/22 02/26/22 aspirin 81 mg tablet,delayed 81 mg PO HS 01/04/22 03/05/22 03/04/22 release topiramate 25 mg tablet 25 mg PO HS 03/05/22 03/05/22 03/04/22 Active Medications Generic Name Dose Route Start Last Admin Trade Name Freq PRN Reason Stop Dose Admin Acetaminophen 650 mg 03/10/22 19:07 03/10/22 19:25 Acetaminophen 325 Mg Tab PO 04/09/22 19:06 650 mg Q4H PRN Administration Pain Allopurinol 100 mg 03/05/22 21:00 03/10/22 19:25 Allopurinol 100 Mg Tab PO 04/04/22 20:59 100 mg HS JULIO CESAR Administration Alprazolam 0.5 mg 03/05/22 15:51 03/05/22 20:53 Alprazolam 0.5 Mg Tablet PO 04/04/22 15:50 0.5 mg QID PRN Administration Anxiety Apixaban 5 mg 03/05/22 21:00 03/06/22 08:23 Apixaban 5 Mg Tablet PO 04/04/22 20:59 5 mg BID JULIO CESAR Administration Aspirin 81 mg 03/05/22 21:00 03/10/22 19:25 Aspirin 81 Mg Ectab PO 04/04/22 20:59 81 mg HS JULIO CESAR Administration Atorvastatin Calcium 20 mg 03/06/22 09:00 03/10/22 08:41 Atorvastatin 20 Mg Tab PO 04/05/22 08:59 20 mg QAM JULIO CESAR Administration Colchicine 0.6 mg 03/05/22 21:00 03/10/22 19:25 Colchicine 0.6 Mg Tab PO 04/04/22 20:59 0.6 mg QPM JULIO CESAR Administration Cyanocobalamin 100 mcg 03/08/22 09:00 03/10/22 08:41 Cyanocobalamin (B-12) 100 Mcg Tablet PO 04/07/22 08:59 100 mcg QAM JULIO CESAR Administration Ferrous Sulfate 325 mg 03/06/22 09:00 03/10/22 08:41 Ferrous Sulfate 325 Mg Tab PO 04/05/22 08:59 325 mg DAILY JULIO CESAR Administration Folic Acid 1 mg 03/05/22 21:00 03/10/22 19:25 Folic Acid 1 Mg Tab PO 04/04/22 20:59 1 mg HS JULIO CESAR Administration Pantoprazole Sodium 40 mg/ 10 mls @ 5 mls/min 03/06/22 21:00 03/10/22 19:26 Syringe IV 04/05/22 20:59 5 mls/min BID JULIO CESAR Administration Insulin Aspart 0 units 03/10/22 07:30 03/11/22 12:20 Insulin Aspart Per Unit SC 04/09/22 07:29 Not Given ACHS JULIO CESAR Levothyroxine Sodium 137 mcg 03/06/22 06:30 03/11/22 06:15 Levothyroxine Sodium 137 Mcg Tablet PO 04/05/22 06:29 137 mcg DAILYBB JULIO CESAR Administration Melatonin 3 mg 03/07/22 20:52 03/09/22 22:25 Melatonin 3 Mg Tab PO 04/06/22 20:51 3 mg HS PRN Administration Sleep Montelukast Sodium 10 mg 03/05/22 21:00 03/10/22 19:25 Montelukast Sodium 10 Mg Tablet PO 04/04/22 20:59 10 mg PM JULIO CESAR Administration Venlafaxine HCl 150 mg 03/06/22 09:00 03/10/22 08:41 Venlafaxine Hcl Xr 150 Mg Capxr PO 04/05/22 08:59 150 mg QAM JULIO CESAR Administration Vitamin D 1,000 units 03/06/22 09:00 03/10/22 08:42 Cholecalciferol 1,000 Units 25 Mcg Tab PO 04/05/22 08:59 1,000 units QAM JULIO CESAR Administration Vitamin D 5,000 units 03/06/22 09:00 03/10/22 08:41 Cholecalciferol 5,000 Units 125 Mcg Tab PO 04/05/22 08:59 5,000 units QAM JULIO CESAR Administration Past Medical History Medical History Asthma, moderate persistent Atrial fibrillation and flutter CKD (chronic kidney disease), stage III Depression Elevated brain natriuretic peptide (BNP) level History of tobacco abuse HTN (hypertension) Hypothyroidism Meniere disease RADHA (obstructive sleep apnea) Osteoarthritis of right knee Pneumonia Past Family History Family History Father Diabetes Past Surgical History Surgical History H/O sinus surgery History of cholecystectomy History of hysterectomy History of laminectomy History of repair of left rotator cuff Hx of neck surgery Past Anesthesia History No Hx of Anesthesia Complications and No Family Hx of Anesthesia Complications History of PONV No Hx of PONV and No Hx of Motion Sickness Social History Smoking Status: Former smoker tobacco type: cigarettes Smoking cigarettes per day: 30 Do You Dip or Chew Tobacco: No Hx Alcohol Use: No Hx Substance Use: No substance use type: does not use Physical Exam Vital Signs Last Vital Signs Temp 36.6 C 03/11/22 11:23 Pulse 58 L 03/11/22 11:23 Resp 17 03/11/22 11:23 BP 115/60 03/11/22 11:23 Pulse Ox 99 03/11/22 11:23 O2 Del Method 03/11/22 11:23 Testing Laboratory Results 03/11/22 06:44 03/11/22 06:44 PT 12.4 Seconds (9.0-12.0) H 03/05/22 11:05 INR 1.2 (0.9-1.1) H 03/05/22 11:05 APTT 26.0 Seconds (21.0-31.0) 03/05/22 11:05 Urine Color Yellow 03/05/22 16:50 Urine Appearance Clear (Clear) 03/05/22 16:50 Urine pH 5.0 (4.5-7.5) 03/05/22 16:50 Ur Specific [place] 1.013 (1.000-1.030) 03/05/22 16:50 Urine Protein Negative (Negative) 03/05/22 16:50 Urine Glucose (UA) Negative (Negative) 03/05/22 16:50 Urine Ketones Negative (Negative) 03/05/22 16:50 Urine Nitrite Negative (Negative) 03/05/22 16:50 Ur Leukocyte Esterase Trace (Negative) H 03/05/22 16:50 Urine WBC (Auto) 1-5 /hpf (0-5) 03/05/22 16:50 Urine RBC (Auto) 0-4 /hpf (0-4) 03/05/22 16:50 U Hyaline Cast (Auto) 1-5 /lpf (0-5) 03/05/22 16:50 U Epithel Cells (Auto) 20-30 /lpf (0-5) H 03/05/22 16:50 Urine Bacteria (Auto) Negative (Negative) 03/05/22 16:50 Blood Type O Positive 03/06/22 14:54 Antibody Screen NEGATIVE 03/06/22 14:54 03/05/22 11:30 Aerobic Blood Culture - Final Blood No growth in Aerobic bottle after 5 days. Anaerobic Blood Culture - Final No growth in Anaerobic bottle after 5 days. 03/05/22 11:15 Aerobic Blood Culture - Final Blood No growth in Aerobic bottle after 5 days. Anaerobic Blood Culture - Final No growth in Anaerobic bottle after 5 days. 03/11/22 03/11/22 11:19 07:12 POC Glucose 107 H 97 Electrocardiogram Date: 03/11/22 Sinus bradycardia with 1st degree A-V block Nonspecific T wave abnormality Abnormal ECG When compared with ECG of 10-MAR-2022 21:48, (unconfirmed) Premature atrial complexes are no longer Present W[place] interval has increased QT has lengthened Confirmed by Carlos Karimi ([id number]) on 03/11/2022 12:56:15 PM Chest X-Ray Date: 03/05/22 CLINICAL HISTORY: SEPSIS TECHNIQUE: Single frontal radiograph of the chest was obtained. Comparison: Comparison is made to chest radiograph 01/04/2022 FINDINGS: Cervical spinal fixation hardware is seen. The aorta is tortuous. The remainder of the cardiomediastinal silhouette is unremarkable. The lungs are clear. No evidence of pleural effusion or pneumothorax. IMPRESSION: No acute abnormalities and in particular no evidence of pneumonia. Echocardiogram Date: 11/27/21 EF: 60-65% LV Function: normal RWMA: + none Other Findings: + atrial enlargement (severe left) and + LVH (mild) Valvular Disease: + MR (mild) A-flutter during exam
--- NOTE | 2022-03-11 15:45 | History & Physical Report ---
Date of Service March 11, 2022 Assessment & Plan Admission and Anticipated Discharge Date Admission Date: March 06, 2022 History of Present Illness Chief Complaint: anemia Primary Care Provider: Florentin Calvo DO anemia Allergies Allergy/AdvReac Type Severity Reaction Status Date / Time Sulfa (Sulfonamide Allergy Severe Severe Verified 03/05/22 11:36 Antibiotics) rxn: rash and hives celecoxib Allergy Intermediate Rash/Hives/ Verified 03/05/22 11:36 Itching. cephalexin Allergy Intermediate Rash/Hives/ Verified 03/05/22 11:36 Itching. furosemide Allergy Intermediate Rash/Hives/ Verified 03/05/22 11:36 Itching. gabapentin Allergy Intermediate Rash/Hives/ Verified 03/05/22 11:36 Itching. pregabalin Allergy Intermediate Rash/Hives/ Verified 03/05/22 11:36 Itching. meclizine Allergy Unknown Unknown Verified 03/05/22 11:36 methylprednisolone Allergy Unknown Rash/Hives/ Verified 03/05/22 11:36 Itching. Penicillins Allergy Unknown Unknown. Verified 03/05/22 11:36 prednisone Allergy Unknown Rash/Hives/ Verified 03/05/22 11:36 Itching. vancomycin Allergy Unknown Jodi Verified 03/05/22 11:36 syn. . nickel Allergy Unknown Verified 03/05/22 11:36 dexamethasone AdvReac Intermediate Steroid Verified 03/05/22 11:36 psychosis. Home Medications Medication Instructions Recorded Confirmed Type alprazolam 0.5 mg tablet 0.5 mg PO QID PRN Anxiety 04/08/19 03/05/22 History folic acid 1 mg tablet 1 mg PO HS 04/08/19 03/05/22 History lansoprazole 15 mg capsule,delayed 15 mg PO DAILY PRN heart burn 04/08/19 03/05/22 History release montelukast 10 mg tablet 10 mg PO PM 04/08/19 03/05/22 History venlafaxine 150 mg 150 mg PO QAM #30 caps 04/08/19 03/05/22 History capsule,extended release 24 hr digoxin 125 mcg (0.125 mg) tablet 125 mcg PO 3XWK 06/03/20 03/05/22 History ferrous sulfate 325 mg (65 mg 325 mg PO DAILY 06/03/20 03/05/22 History iron) tablet ipratropium bromide 21 mcg (0.03 2 spray intranasal DAILY PRN Sinus 06/03/20 03/05/22 History %) nasal spray Symptoms metoprolol succinate 50 mg 50 mg PO HS 06/03/20 03/05/22 History tablet,extended release 24 hr allopurinol 100 mg tablet 100 mg PO HS 11/26/21 03/05/22 History apixaban 5 mg tablet (Eliquis) 5 mg PO BID 11/26/21 03/05/22 History atorvastatin 20 mg tablet 20 mg PO QAM 11/26/21 03/05/22 History cholecalciferol (vitamin D3) 50 150 mcg PO QAM 11/26/21 03/05/22 History mcg (2,000 unit) capsule (Vitamin D3) colchicine 0.6 mg tablet 0.6 mg PO QPM 11/26/21 03/05/22 History levothyroxine 137 mcg tablet 137 mcg PO QAM 11/26/21 03/05/22 History semaglutide (Ozempic) 0.25 mg subcut WK 11/26/21 03/05/22 History aspirin 81 mg tablet,delayed 81 mg PO HS 01/04/22 03/05/22 History release topiramate 25 mg tablet 25 mg PO HS 03/05/22 03/05/22 History Past Med/Surg History Medical History Asthma, moderate persistent Atrial fibrillation and flutter CKD (chronic kidney disease), stage III Depression Elevated brain natriuretic peptide (BNP) level History of tobacco abuse HTN (hypertension) Hypothyroidism Meniere disease RADHA (obstructive sleep apnea) Osteoarthritis of right knee Pneumonia Surgical History H/O sinus surgery History of cholecystectomy History of hysterectomy History of laminectomy History of repair of left rotator cuff Hx of neck surgery Family History Father Diabetes Social History Smoking Status: Former smoker Tobacco Type: Cigarettes packs per day: 1.5; Years Smoked: 20; Cigarettes Per Day: 30; Second Hand Exposure: No; Do You Dip or Chew Tobacco: No; Hx Alcohol Use: No Hx Substance Use: No Preferred Language: Sinhala Communication Ability: Effective 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 Loan 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 Required: No Beliefs That Will Affect Care: None marital status: Current Living Situation: Spouse Other Information That Helps Us Care for You: No Feels Safe at Home: Yes Safety Concerns: Feels Safe At This Time Assistive Devices: Cane and Walker Assistive Devices Comment: cpap recalled - no machine at home Results & Data ([facility]) Vital Signs (Past 12 Hours) Vital Signs Temp Pulse Pulse Resp BP Pulse Ox O2 Del Method 03/11/22 15:15 36.7 C 66 16 138/70 97 Room Air 03/11/22 14:50 62 03/11/22 11:23 36.6 C 58 L 17 115/60 99 Room Air 03/11/22 07:47 36.7 C 61 17 128/62 96 Room Air 03/11/22 07:16 62 Code Status & VTE Plan VTE Prophylaxis Plan VTE Prophylaxis will be ordered: Yes Supervising Physician Co-Signing Physician Notes EGD and colonscopy today
[2022-03-11] MEDS ORDERED: LIDOCAINE 2% MPF LOCAL 5 ML VIAL INFIL ONE (16:20)
[2022-03-11] MEDS ORDERED: PROPOFOL IV EMULSION 10 MG/ML 20 ML VIAL IV ONE (16:20)
--- NOTE | 2022-03-11 16:28 | GI REPORT ---
Patient Name: Inga Barakat Procedure Date: 03/11/2022 3:48 PM Date of : 1940 Admit Type: Inpatient Age: 81 Gender: Female Attending MD: Priscilla Jamil DO Procedure: Upper GI endoscopy Providers: Priscilla Jamil DO Referring MD: Jose Naik Md Indications: Iron deficiency anemia Medicines: Propofol per Anesthesia Complications: No immediate complications. Estimated blood loss: None. Estimated Blood Loss: Estimated blood loss: none. Procedure: Pre-Anesthesia Assessment: - Prior to the procedure, a History and Physical was performed, and patient medications, allergies and sensitivities were reviewed. The patient's tolerance of previous anesthesia was reviewed. - The risks and benefits of the procedure and the sedation options and risks were discussed with the patient. All questions were answered and informed consent was obtained. - Patient identification and proposed procedure were verified prior to the procedure by the physician and the nurse. The procedure was verified in the pre-procedure area in the procedure room. - Mental Status Examination: Airway Examination: normal oropharyngeal airway and neck mobility. Respiratory Examination: clear to auscultation. CV Examination: normal. Abdominal Examination: bowel sounds present, abdomen soft and non-tender, no masses or organomegaly noted. - ASA Grade Assessment: III - A patient with severe systemic disease. After obtaining informed consent, the endoscope was passed under direct vision. Throughout the procedure, the patient's blood pressure, pulse, and oxygen saturations were monitored continuously. The Colonoscope was introduced through the mouth, and advanced to the third part of duodenum. The upper GI endoscopy was accomplished without difficulty. The patient tolerated the procedure well. Findings: The esophagus was normal. Multiple diminutive sessile fundic gland polyps with no stigmata of recent bleeding were found in the gastric fundus. The examined duodenum was normal. Impression: - No fresh or altered blood. - Normal esophagus. - Multiple small non-bleeding fundic gland polyps. - Normal examined duodenum. - No specimens collected. Recommendation: - Perform a colonoscopy today. Bin Ch DO 03/11/2022 4:28:22 PM This report has been signed electronically. Note Initiated On: 03/11/2022 3:48 PM Number of Addenda: 0 I attest to the content of the Intraoperative Record and orders documented therein, exceptions below {[id number]}
--- NOTE | 2022-03-11 16:31 | GI REPORT ---
Patient Name: Inga Barakat Procedure Date: 03/11/2022 3:49 PM Date of : 1940 Admit Type: Inpatient Age: 81 Gender: Female Attending MD: Priscilla Jamil DO Procedure: Colonoscopy Providers: Priscilla Jamil DO Referring MD: Jose Naik Md Indications: Last colonoscopy within the past 3 years, Iron deficiency anemia Medicines: Propofol per Anesthesia Complications: No immediate complications. Estimated blood loss: None. Estimated Blood Loss: Estimated blood loss: none. Procedure: Pre-Anesthesia Assessment: - Prior to the procedure, a History and Physical was performed, and patient medications, allergies and sensitivities were reviewed. The patient's tolerance of previous anesthesia was reviewed. - The risks and benefits of the procedure and the sedation options and risks were discussed with the patient. All questions were answered and informed consent was obtained. - Patient identification and proposed procedure were verified prior to the procedure by the physician and the nurse. The procedure was verified in the pre-procedure area in the procedure room. - Mental Status Examination: alert and oriented. Airway Examination: normal oropharyngeal airway and neck mobility. Respiratory Examination: clear to auscultation. CV Examination: normal. Abdominal Examination: bowel sounds present, abdomen soft and non-tender, no masses or organomegaly noted. - ASA Grade Assessment: III - A patient with severe systemic disease. After I obtained informed consent, the scope was passed under direct vision. Throughout the procedure, the patient's blood pressure, pulse, and oxygen saturations were monitored continuously. The Colonoscope was introduced through the anus and advanced to the terminal ileum. The colonoscopy was performed without difficulty. The patient tolerated the procedure well. The quality of the bowel preparation was fair. Findings: The perianal and digital rectal examinations were normal. Pertinent negatives include normal sphincter tone and no palpable rectal lesions. The terminal ileum appeared normal. A few small-mouthed diverticula were found in the sigmoid colon. A moderate amount of semi-liquid stool was found in the entire colon. The retroflexed view of the distal rectum and anal verge was normal and showed no anal or rectal abnormalities. Impression: - Preparation of the colon was fair. - No fresh or altered blood. - The examined portion of the ileum was normal. - Diverticulosis in the sigmoid colon. - Stool in the entire examined colon. - The distal rectum and anal verge are normal on retroflexion view. - No specimens collected. Recommendation: - Return patient to [facility] for ongoing care. OK to resume patient diet. Priscilla Jamil D.O. Priscilla Jamil, 03/11/2022 4:31:20 PM This report has been signed electronically. Note Initiated On: 03/11/2022 3:49 PM Number of Addenda: 0 I attest to the content of the Intraoperative Record and orders documented therein, exceptions below {[id number]}
--- NOTE | 2022-03-11 16:52 | Anesthesiology Progress Note ---
Date of Service March 11, 2022 Anesthesia Post Procedure Vital Signs Vital Signs: Temp Pulse Pulse Resp BP Pulse Ox O2 Del Method 03/11/22 16:37 64 18 135/62 94 Room Air 03/11/22 16:22 61 16 120/73 96 Room Air 03/11/22 15:41 36.8 C 70 18 149/73 H 98 Room Air 03/11/22 15:15 36.7 C 66 16 138/70 97 Room Air 03/11/22 14:50 62 03/11/22 11:23 36.6 C 58 L 17 115/60 99 Room Air 03/11/22 07:47 36.7 C 61 17 128/62 96 Room Air 03/11/22 07:16 62 03/11/22 03:44 36.6 C 69 18 125/83 98 Room Air 03/10/22 23:07 36.4 C L 63 18 123/66 99 Room Air 03/10/22 18:59 36.6 C 62 18 110/57 L 97 Room Air Transfer of Care Handoff Completed per policy Notes Mental Status: alert / awake / arousable Patient Amnestic to Procedure: Yes Nausea / Vomiting: adequately controlled Pain: adequately controlled Airway Patency, RR, SpO2: stable & adequate BP & HR: stable & adequate Hydration State: stable & adequate Anesthetic Complications: no major complications apparent and Pt Satisfied with anesthetic care
[2022-03-11] MEDS: CHOLECALCIFEROL 1,000 UNITS 25 MCG TAB PO SCH (18:03)
[2022-03-11] MEDS: ATORVASTATIN 20 MG TAB PO SCH (18:03)
[2022-03-11] MEDS: FERROUS SULFATE 325 MG TAB PO SCH (18:03)
[2022-03-11] MEDS: VENLAFAXINE HCL XR 150 MG CAPXR PO SCH (18:03)
[2022-03-11] MEDS: CYANOCOBALAMIN (B-12) 100 MCG TABLET PO SCH (18:03)
[2022-03-11] MEDS: CHOLECALCIFEROL 5,000 UNITS 125 MCG TAB PO SCH (18:03)
[2022-03-11] MEDS: PANTOprazole 40 MG in SYRINGE 0 ML IV SCH ×2 (18:04→21:19)
--- NOTE | 2022-03-11 18:33 | Hospitalist Progress Note ---
Date of Service March 11, 2022 Assessment & Plan (1) Near syncope: (2) TIFFANY (acute kidney injury): (3) Dehydration: (4) Acute on chronic anemia: Plan Near syncope -Appears most consistent with dehydration due to poor appetite vs anemia -Orthostatic vital + on admission -TTE from 11/2021 with normal EF -TSH normal TIFFANY -due to dehydration, poor appetite -s/p 1.5L NSS in ER with improvement in blood pressure. Cr now back to baseline Acute on chronic anemia - iron studies normal, B12 low normal, folate normal -Hb down to 7.2 (baseline 10-12), Eliquis held. -Protonix IV BID -s/p 1 unit pRBC 03/06 with appropriate response . Hemoglobin has remained stable since -started B12 supplement -EGD and colonoscopy today negative for bleed Anorexia -poor appetite related to recent covid 19 infection. 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 Just had dinner Physical Exam Physical Exam: Pleasant, comfortable, no acute distress Respiratory: breathing comfortably on room air, no wheezing/rhonchi/rales Cardiovascular: regular rate and rhythm, no murmurs/rubs/gallops Gastrointestinal (Abdomen): soft, non tender Musculoskeletal: No edema Neurologic: awake, alert, spontaneously moving extremities Results & Data Results & Data ([facility]) Vital Signs (Past 12 Hours) Vital Signs Temp Pulse Pulse Resp BP Pulse Ox O2 Del Method 03/11/22 17:04 36.7 C 63 15 123/69 95 Room Air 03/11/22 16:55 64 20 141/67 H 96 Room Air 03/11/22 16:37 64 18 135/62 94 Room Air 03/11/22 16:22 61 16 120/73 96 Room Air 03/11/22 15:41 36.8 C 70 18 149/73 H 98 Room Air 03/11/22 15:15 36.7 C 66 16 138/70 97 Room Air 03/11/22 14:50 62 03/11/22 11:23 36.6 C 58 L 17 115/60 99 Room Air 03/11/22 07:47 36.7 C 61 17 128/62 96 Room Air 03/11/22 07:16 62 Laboratory Results Short CBC 03/11/22 Range/Units 06:44 WBC 8.17 (4.8-10.8) K/ul Hgb 9.3 L (12.0-16.0) g/dl Hct 29.2 L (34.1-44.9) % Plt Count 216 (130-400) K/uL BMP 03/11/22 06:44 Sodium 140 Potassium 4.8 Chloride 106 Carbon Dioxide 29 BUN 18 Creatinine 1.11 Glucose 100 H Calcium 9.2 Medications Administered Current Inpatient Medications Acetaminophen (Acetaminophen 325 Mg Tab) 650 mg PO Q4H PRN PRN Reason: Pain Stop: 04/09/22 19:06 Last Admin: 03/10/22 19:25 Dose: 650 mg Allopurinol (Allopurinol 100 Mg Tab) 100 mg PO HS JULIO CESAR Stop: 04/04/22 20:59 Last Admin: 03/10/22 19:25 Dose: 100 mg Alprazolam (Alprazolam 0.5 Mg Tablet) 0.5 mg PO QID PRN PRN Reason: Anxiety Stop: 04/04/22 15:50 Last Admin: 03/05/22 20:53 Dose: 0.5 mg Apixaban (Apixaban 5 Mg Tablet) 5 mg PO BID JULIO CESAR Stop: 04/04/22 20:59 Last Admin: 03/06/22 08:23 Dose: 5 mg Aspirin (Aspirin 81 Mg Ectab) 81 mg PO HS JULIO CESAR Stop: 04/04/22 20:59 Last Admin: 03/10/22 19:25 Dose: 81 mg Atorvastatin Calcium (Atorvastatin 20 Mg Tab) 20 mg PO QAM JULIO CESAR Stop: 04/05/22 08:59 Last Admin: 03/11/22 18:03 Dose: 20 mg Colchicine (Colchicine 0.6 Mg Tab) 0.6 mg PO QPM JULIO CESAR Stop: 04/04/22 20:59 Last Admin: 03/10/22 19:25 Dose: 0.6 mg Cyanocobalamin (Cyanocobalamin (B-12) 100 Mcg Tablet) 100 mcg PO QAM JULIO CESAR Stop: 04/07/22 08:59 Last Admin: 03/11/22 18:03 Dose: 100 mcg Ferrous Sulfate (Ferrous Sulfate 325 Mg Tab) 325 mg PO DAILY JULIO CESAR Stop: 04/05/22 08:59 Last Admin: 03/11/22 18:03 Dose: 325 mg Folic Acid (Folic Acid 1 Mg Tab) 1 mg PO HS JULIO CESAR Stop: 04/04/22 20:59 Last Admin: 03/10/22 19:25 Dose: 1 mg Pantoprazole Sodium 40 mg/ (Syringe) 10 mls @ 5 mls/min IV BID JULIO CESAR Stop: 04/05/22 20:59 Last Admin: 03/11/22 18:04 Dose: 5 mls/min Insulin Aspart (Insulin Aspart Per Unit) 0 units SC ACHS JULIO CESAR Stop: 04/09/22 07:29 Last Admin: 03/11/22 18:04 Dose: Not Given Ipratropium [place] (Ipratropium [place] Nasal [place] 0.06% 15ml) 1 sprays OLVIN DAILY PRN PRN Reason: Sinus Symptoms Stop: 04/04/22 16:27 Levothyroxine Sodium (Levothyroxine Sodium 137 Mcg Tablet) 137 mcg PO DAILYBB JULIO CESAR Stop: 04/05/22 06:29 Last Admin: 03/11/22 06:15 Dose: 137 mcg Melatonin (Melatonin 3 Mg Tab) 3 mg PO HS PRN PRN Reason: Sleep Stop: 04/06/22 20:51 Last Admin: 03/09/22 22:25 Dose: 3 mg Montelukast Sodium (Montelukast Sodium 10 Mg Tablet) 10 mg PO PM JULIO CESAR Stop: 04/04/22 20:59 Last Admin: 03/10/22 19:25 Dose: 10 mg Sotalol HCl (Sotalol Hcl 80 Mg Tab) 80 mg PO QAM JULIO CESAR Stop: 04/11/22 08:59 Sotalol HCl (Sotalol Hcl 80 Mg Tab) 40 mg PO QPM JULIO CESAR Stop: 04/10/22 20:59 Venlafaxine HCl (Venlafaxine Hcl Xr 150 Mg Capxr) 150 mg PO QAM JULIO CESAR Stop: 04/05/22 08:59 Last Admin: 03/11/22 18:03 Dose: 150 mg Vitamin D (Cholecalciferol 1,000 Units 25 Mcg Tab) 1,000 units PO QAM [facility] Stop: 04/05/22 08:59 Last Admin: 03/11/22 18:03 Dose: 1,000 units Vitamin D (Cholecalciferol 5,000 Units 125 Mcg Tab) [facility] Stop: 04/05/22 08:59 Last Admin: 03/11/22 18:03 Dose: 5,000 units
[2022-03-11] MEDS ORDERED: SOTALOL HCL 80 MG TAB PO SCH (21:00)
[2022-03-11] MEDS: COLCHICINE 0.6 MG TAB PO SCH (21:20)
[2022-03-11] MEDS: ASPIRIN 81 MG ECTAB PO SCH (21:20)
[2022-03-11] MEDS: allopurinoL 100 MG TAB PO SCH (21:21)
[2022-03-11] MEDS: MONTELUKAST SODIUM 10 MG TABLET PO SCH (21:21)
[2022-03-11] MEDS: FOLIC ACID 1 MG TAB PO SCH (21:21)
[2022-03-12] MEDS: LEVOTHYROXINE SODIUM 137 MCG TABLET PO SCH (06:00)
[2022-03-12 07:38] LABS: Hematocrit (blood only) 27.6 % (34.1-44.9); Hemoglobin 8.8 g/dl (12.0-16.0); Mean Corpuscular Hemoglobin 29.2 pg (25.0-34.0); Mean Corpuscular Hgb Conc 31.9 g/dL (32.0-36.0); Mean Corpuscular Volume 91.7 fL (80.0-100.0); Mean Platelet Volume 10.6 fL (9.4-12.3); Platelet Count 209 K/uL (130-400); Red Blood Count 3.01 M/uL (3.93-5.22); White Blood Count 7.47 K/ul (4.8-10.8)
[2022-03-12 07:59] LABS: BUN Creatinine Ratio 16.5 (10-20); Calcium 8.8 mg/dl (8.5-10.1); Creatinine Clr Calc Pharmacy 32.8 ml/min; Est GFR (African American) 48.6 ml/min; Est GFR (Non-African American) 41.9 ml/min; Magnesium 1.8 mg/dl (1.7-2.4); Potassium 4.7 mmol/L (3.5-5.1)
[2022-03-12] MEDS ORDERED: SOTALOL HCL 80 MG TAB PO SCH (09:00)
[2022-03-12] MEDS: INSULIN ASPART PER UNIT SC SCH ×4 (09:05→20:51)
[2022-03-12] MEDS: FERROUS SULFATE 325 MG TAB PO SCH (09:06)
[2022-03-12] MEDS: VENLAFAXINE HCL XR 150 MG CAPXR PO SCH (09:06)
[2022-03-12] MEDS: ATORVASTATIN 20 MG TAB PO SCH (09:07)
[2022-03-12] MEDS: CHOLECALCIFEROL 1,000 UNITS 25 MCG TAB PO SCH (09:07)
[2022-03-12] MEDS: CHOLECALCIFEROL 5,000 UNITS 125 MCG TAB PO SCH (09:07)
[2022-03-12] MEDS: CYANOCOBALAMIN (B-12) 100 MCG TABLET PO SCH (09:07)
[2022-03-12] MEDS: PANTOprazole 40 MG in SYRINGE 0 ML IV SCH ×2 (10:06→21:02)
--- NOTE | 2022-03-12 11:12 | Cardiology Progress Note ---
Date of Service March 12, 2022 Assessment & Plan (1) Acute on chronic anemia: (2) Near syncope: (3) Atrial fibrillation and flutter: Plan Patient presenting with symptomatic anemia. 1 unit PRBC's transfused. plan for colonoscopy and EGD on Friday (today), await results Paroxysmal atrial fibrillation currently remaining in sinus rhythm. Patient to be in hospital for planned procedure Friday we will use opportunity on telemetry to initiate antiarrhythmic therapy Tolerating antiarrhythmic therapy well Impression: Microcytic anemia without bleeding source identified. paroxysmal atrial fibrillation status post Plan: Patient tolerating sotalol without tachycardia or bradycardia arrhythmia. Plan discharge dose of 40 mg bid Given rhythm stability, on antiarrhythmic therapy would hold anticoagulation until outpatient appointment, further GI evaluation completed Admission and Anticipated Discharge Date Admission Date: March 06, 2022 Physical Exam Constitutional: WD/WN, vitals as above Eyes: PERRL, conjunctivae normal, anicteric sclerae Neck: trachea midline, no thyromegaly Respiratory: no respiratory distress Auscultation: lungs clear to auscultation bilaterally Cardiovascular: Rate/Rhythm: regular rate and regular rhythm Heart Sounds: no murmur Vessels: no JVD Extremities: no edema Gastrointestinal (Abdomen): normal bowel sounds, soft, nontender, no hepatosplenomegaly Neurologic: PERRL, EOMI, accommodation nl, no face palsy, no dysarthria Psychiatric: A+Ox3, euthymic affect Results & Data ([facility]) Vital Signs (Past 12 Hours) Vital Signs Temp Pulse Pulse Pulse Resp BP Pulse Ox 03/12/22 07:44 62 03/12/22 07:28 36.5 C 63 16 128/68 94 03/12/22 03:56 36.5 C 64 18 104/49 L 92 03/12/22 00:13 64 03/11/22 23:15 36.5 C 63 20 108/65 94 O2 Del Method 03/12/22 07:44 03/12/22 07:28 Room Air 03/12/22 03:56 Room Air 03/12/22 00:13 03/11/22 23:15 Room Air Laboratory Results Laboratory Results - last 24 hr 03/11/22 03/11/22 03/11/22 11:19 17:04 20:06 WBC RBC Hgb Hct MCV MCH MCHC RDW Std Deviation RDW Coeff of Francisco Javier Plt Count MPV Sodium Potassium Chloride Carbon Dioxide Anion Gap BUN Creatinine Est Cr Clr Drug Dosing Est GFR ( Amer) Est GFR (Non-Af Amer) BUN/Creatinine Ratio Glucose POC Glucose 107 H 95 161 H Calcium Magnesium 03/12/22 03/12/22 03/12/22 07:15 07:15 07:32 WBC 7.47 RBC 3.01 L Hgb 8.8 L Hct 27.6 L MCV 91.7 MCH 29.2 MCHC 31.9 L RDW Std Deviation 53.0 H RDW Coeff of Francisco Javier 16.0 H Plt Count 209 MPV 10.6 Sodium 139 Potassium 4.7 Chloride 106 Carbon Dioxide 28 Anion Gap 5 BUN 20 Creatinine 1.21 H Est Cr Clr Drug Dosing 32.8 Est GFR ( Amer) 48.6 Est GFR (Non-Af Amer) 41.9 BUN/Creatinine Ratio 16.5 Glucose 116 H POC Glucose 119 H Calcium 8.8 Magnesium 1.8 ECG Additional Comments: Sinus rhythm at 60 bpm with first-degree AV block, QT corrected 450
[2022-03-12] MEDS: SODIUM CHLORIDE 0.9% 1000ML 1,000 ML IV SCH (13:56)
--- NOTE | 2022-03-12 15:28 | Hospitalist Progress Note ---
Date of Service March 12, 2022 Assessment & Plan (1) Near syncope: (2) TIFFANY (acute kidney injury): (3) Dehydration: (4) Acute on chronic anemia: Plan Near syncope -Appears most consistent with dehydration due to poor appetite vs anemia -Orthostatic vital + on admission -TTE from 11/2021 with normal EF -TSH normal TIFFANY -due to dehydration, poor appetite -s/p 1.5L NSS in ER with improvement in blood pressure. Cr back to baseline but with mild bump to 1.2 after bowel prep yesterday -Patient is tolerating diet, drinking fluids. With her light headedness earlier with PT, would consider placing her back on NSS at 100cc/hr, repeat BMP tomorrow Acute on chronic anemia - iron studies normal, B12 low normal, folate normal -Hb down to 7.2 (baseline 10-12), Eliquis held. -Protonix IV BID -s/p 1 unit pRBC 03/06 with appropriate response . Hemoglobin has remained stable since -started B12 supplement -EGD and colonoscopy 03/11 negative for bleed -Plan for follow up with GI in 2 weeks. If in the meantime, she rebleeds--> would get bleeding scan. I discussed with GI today, they are ok with resuming Eliquis Anorexia -poor appetite related to recent covid 19 infection. 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 Will defer whether Eliquis should be resumed to Cardiology Asthma -well controlled, continue home medications DVT ppx -SCDs for now, Eliquis on hold Code status -Full, discussed with patient Disposition -Patient evaluated by PT today and discharge home is recommended. Admission and Anticipated Discharge Date Admission Date: March 06, 2022 Subjective At the end of her PT session today (she walked 275') she felt warm/"woozy" Later ambulated in her room and had similar sensation but less than earlier She reports tolerating diet and drinking Daughter, Kayla, had many questions and concerns about her mother leaving today Physical Exam Physical Exam: Patient is pleasant and comfortable, her daughter (Kayla) was on speaker phone Respiratory: Breathing comfortably on room air, no accessory muscle use Cardiovascular: regular rate and rhythm, no murmurs/rubs Gastrointestinal (Abdomen): soft, non tender, non distended Musculoskeletal: no edema Neurologic: awake, alert, spontaneously moving extremities Results & Data Results & Data ([facility]) Vital Signs (Past 12 Hours) Vital Signs Temp Pulse Pulse Pulse Resp BP Pulse Ox 03/12/22 11:21 36.6 C 48 L 18 106/62 96 03/12/22 07:44 62 03/12/22 07:28 36.5 C 63 16 128/68 94 03/12/22 03:56 36.5 C 64 18 104/49 L 92 O2 Del Method 03/12/22 11:21 Room Air 03/12/22 07:44 03/12/22 07:28 Room Air 03/12/22 03:56 Room Air Laboratory Results Short CBC 03/12/22 Range/Units 07:15 WBC 7.47 (4.8-10.8) K/ul Hgb 8.8 L (12.0-16.0) g/dl Hct 27.6 L (34.1-44.9) % Plt Count 209 (130-400) K/uL BMP 03/12/22 07:15 Sodium 139 Potassium 4.7 Chloride 106 Carbon Dioxide 28 BUN 20 Creatinine 1.21 H Glucose 116 H Calcium 8.8 Medications Administered Current Inpatient Medications Acetaminophen (Acetaminophen 325 Mg Tab) 650 mg PO Q4H PRN PRN Reason: Pain Stop: 04/09/22 19:06 Last Admin: 03/10/22 19:25 Dose: 650 mg Allopurinol (Allopurinol 100 Mg Tab) 100 mg PO HS JULIO CESAR Stop: 04/04/22 20:59 Last Admin: 03/11/22 21:21 Dose: 100 mg Alprazolam (Alprazolam 0.5 Mg Tablet) 0.5 mg PO QID PRN PRN Reason: Anxiety Stop: 04/04/22 15:50 Last Admin: 03/05/22 20:53 Dose: 0.5 mg Apixaban (Apixaban 5 Mg Tablet) 5 mg PO BID JULIO CESAR Stop: 04/04/22 20:59 Last Admin: 03/06/22 08:23 Dose: 5 mg Aspirin (Aspirin 81 Mg Ectab) 81 mg PO HS JULIO CESAR Stop: 04/04/22 20:59 Last Admin: 03/11/22 21:20 Dose: 81 mg Atorvastatin Calcium (Atorvastatin 20 Mg Tab) 20 mg PO QAM JULIO CESAR Stop: 04/05/22 08:59 Last Admin: 03/12/22 09:07 Dose: 20 mg Colchicine (Colchicine 0.6 Mg Tab) 0.6 mg PO QPM JULIO CESAR Stop: 04/04/22 20:59 Last Admin: 03/11/22 21:20 Dose: 0.6 mg Cyanocobalamin (Cyanocobalamin (B-12) 100 Mcg Tablet) 100 mcg PO QAM JULIO CESAR Stop: 04/07/22 08:59 Last Admin: 03/12/22 09:07 Dose: 100 mcg Ferrous Sulfate (Ferrous Sulfate 325 Mg Tab) 325 mg PO DAILY JULIO CESAR Stop: 04/05/22 08:59 Last Admin: 03/12/22 09:06 Dose: 325 mg Folic Acid (Folic Acid 1 Mg Tab) 1 mg PO HS JULIO CESAR Stop: 04/04/22 20:59 Last Admin: 03/11/22 21:21 Dose: 1 mg Pantoprazole Sodium 40 mg/ (Syringe) 10 mls @ 5 mls/min IV BID JULIO CESAR Stop: 04/05/22 20:59 Last Admin: 03/12/22 10:06 Dose: 5 mls/min Sodium Chloride (Nss 1000ml) 1,000 mls @ 100 mls/hr IV .Q10H JULIO CESAR Stop: 04/11/22 12:44 Last Admin: 03/12/22 13:56 Dose: 100 mls/hr Insulin Aspart (Insulin Aspart Per Unit) 0 units SC ACHS JULIO CESAR Stop: 04/09/22 07:29 Last Admin: 03/12/22 12:03 Dose: Not Given Ipratropium [place] (Ipratropium [place] Nasal [place] 0.06% 15ml) 1 sprays OLVIN DAILY PRN PRN Reason: Sinus Symptoms Stop: 04/04/22 16:27 Levothyroxine Sodium (Levothyroxine Sodium 137 Mcg Tablet) 137 mcg PO DAILYBB JULIO CESAR Stop: 04/05/22 06:29 Last Admin: 03/12/22 06:00 Dose: 137 mcg Melatonin (Melatonin 3 Mg Tab) 3 mg PO HS PRN PRN Reason: Sleep Stop: 04/06/22 20:51 Last Admin: 03/09/22 22:25 Dose: 3 mg Montelukast Sodium (Montelukast Sodium 10 Mg Tablet) 10 mg PO PM JULIO CESAR Stop: 04/04/22 20:59 Last Admin: 03/11/22 21:21 Dose: 10 mg Sotalol HCl (Sotalol Hcl 80 Mg Tab) 40 mg PO BID JULIO CESAR Stop: 04/11/22 20:59 Venlafaxine HCl (Venlafaxine Hcl Xr 150 Mg Capxr) 150 mg PO QA JULIO CESAR Stop: 04/05/22 08:59 Last Admin: 03/12/22 09:06 Dose: 150 mg Vitamin D (Cholecalciferol 1,000 Units 25 Mcg Tab) 1,000 units PO QAM [facility] Stop: 04/05/22 08:59 Last Admin: 03/12/22 09:07 Dose: 1,000 units Vitamin D (Cholecalciferol 5,000 Units 125 Mcg Tab) 5,000 units PO QAM [facility] Stop: 04/05/22 08:59 Last Admin: 03/12/22 09:07 Dose: 5,000 units
--- NOTE | 2022-03-12 16:34 | Discharge Summary ---
Date of Service March 12, 2022 Admission HPI Per Admitting Provider Ms Inga Barakat is a 81 year old female with history of PAF on digoxin and Eliquis, asthma, meniere's disease, hypothyroidism and history of Covid 19 infection presents today feeling unwell with near syncope at home. Upon arrival here, her vitals are unremarkable, labwork significnat for Cr of 1.39 (baseline 1), WBC 11.5, Hb 9.2 (baseline 10-12). In triage, her BP was noted to be low (SBP 60s) and improved after NSS administration. ER course- Ertepenem, 1.5L NSS, Zofran 4mg IV Patient reports feeling weak, having a poor appetite and intermittent light headedness for past several months since she was diagnosed with Covid 19 in December. Patient reports her stool appears darker than usual (she takes daily iron), rectal exam in ER revealed dark brown stool that was heme negative She denies diarrhea, vomiting, chest pain/shortness of breath, rash, ulcer, or urinary symptoms. Principal Diagnosis Acute on chronic Anemia Paroxysmal A fib Peripheral Neuropathy TIFFANY Dehydration Low normal B12 Discharge Exam Patient reports towards the end of her physical therapy session today (she walked 275') she felt warm and woozy. Later, she felt a little woozy walking around her room. No arrhythmias noted on telemetry during these events. On exam, patient appears well, no acute distress. CV- regular rate and rhythm. Pulm- breathing comfortably on room air Discharge Data Allergies Allergy/AdvReac Type Severity Reaction Status Date / Time Sulfa (Sulfonamide Allergy Severe Severe Verified 03/05/22 11:36 Antibiotics) rxn: rash and hives celecoxib Allergy Intermediate Rash/Hives/ Verified 03/05/22 11:36 Itching. cephalexin Allergy Intermediate Rash/Hives/ Verified 03/05/22 11:36 Itching. furosemide Allergy Intermediate Rash/Hives/ Verified 03/05/22 11:36 Itching. gabapentin Allergy Intermediate Rash/Hives/ Verified 03/05/22 11:36 Itching. pregabalin Allergy Intermediate Rash/Hives/ Verified 03/05/22 11:36 Itching. meclizine Allergy Unknown Unknown Verified 03/05/22 11:36 methylprednisolone Allergy Unknown Rash/Hives/ Verified 03/05/22 11:36 Itching. Penicillins Allergy Unknown Unknown. Verified 03/05/22 11:36 prednisone Allergy Unknown Rash/Hives/ Verified 03/05/22 11:36 Itching. vancomycin Allergy Unknown Jodi Verified 03/05/22 11:36 syn. . nickel Allergy Unknown Verified 03/05/22 11:36 dexamethasone AdvReac Intermediate Steroid Verified 03/05/22 11:36 psychosis. Consultations 03/05/22 13:01 ED Decision to Admit Stat 03/06/22 14:34 Consult Gastroenterology Routine 03/08/22 10:16 Consult Cardiology Routine Procedures Performed Operation Date: 03/11/22 16:00 Actual Procedures p Esophagogastroduodenoscopy - Priscilla Jamil DO s Colonoscopy - Priscilla Jamil DO Hospital Course (1) Near syncope: (2) TIFFANY (acute kidney injury): (3) Dehydration: (4) Acute on chronic anemia: Plan Ms Inga Barakat is a 81 year old female with history of PAF on Eliquis, Digoxin, Metoprolol. History also of chronic anemia, Covid 19 infection in December then with resulting poor appetite and weakness, peripheral neuropathy and hypothyroidism was admitted 03/05 from home for presyncope. On arrival, she was noted to have low blood pressure (61/38) and TIFFANY (Cr 1.4 from baseline 1). She was placed on IV fluids with resolution of her dehydration and hypotension and symptoms of light headedness. After IV fluids, her hemoglobin dropped from 9 down to 7. Her eliquis was held and she was seen by GI and had an EGD and colonoscopy 03/11 which was negative for bleed. She will follow up with GI outpatient for further evaluation which may include repeat colonoscopy and/or capsule study. While here, she was noted to have a run of SVT and Cardiology was consulted. Her telemetry was reviewed and she was noted to also have episodes of pauses. Her digoxin and metoprolol were discontinued and she was started on sotalol. She was monitored in the hospital for 3 days while being initiated on sotalol. She tolerated sotalol well and was discharged on sotalol 40mg BID. With regards to her Eliquis, Cardiology recommended she remain off Eliquis until her follow up with GI and her outpatient anemia workup is complete. She had iron studies, B12, and folate levels checked here. B12 levels were low normal and she was started on supplement. She was seen by PT several times in the hospital including on the day of discharge and was recommended that she may return home. On the day of discharge, she had a mild rise in her Cr to 1.2 (from 1) likely due to dehydration related to her bowel prep the day prior. While working with PT and after walking 275 feet, she felt woozy. She was offered to remain in the hospital overnight for IV fluids but she is tolerating oral intake and she would like to return home and will drink plenty of fluids and rest at home. She was discharged home in stable condition. All questions were answered to her satisfaction. Medication changes at discharge are: 1. Eliquis Held (will follow up with Cardiology to decide when this should be resumed) 2. Dixogin discontinued 3. Metoprolol discontinued 4. Sotalol 40mg twice a day (new) 5. Vitamin B 12 supplement (new) Total Time Total Time Spent Total Time Spent (In Minutes): 40 Discharge Plan Discharge Items Patient Disposition: Home - Self-Care Reason For Visit: NEAR SYNCOPE Discharge Diagnosis: Acute on chronic Anemia Paroxysmal A fib Peripheral Neuropathy TIFFANY Dehydration Low normal B12 Condition on Discharge: Fair Activity: Resume your previous activity Non-emergency contact: Primary Care Provider, School Program Director and [employer] [place] Call non-emergency contact if: you have any medication questions and your symptoms worsen Follow-up/Referrals: Isaías Márquez DO [School Program Director] - Florentin Calvo DO [Primary Care Provider] - Priscilla Jamil DO [Physician] - Diet: Regular Addtl Attending Provider Instructions: You were admitted for light headedness. You were found to have dehydration (and acute kidney injury) which resolved with IV fluids You symptoms of light headedness also resolved with IV fluids While here, you had worsening anemia (Hb 9 which dropped down to 7 ) after IV fluids. You had 1 unit blood here with good response and your hemoglobin has remained stable for the past 5 days. You had iron studies, B12, folate levels checked here which revealed low normal B12 and you were started on supplement. Because you are on Eliquis, you were kept in the hospital for further evaluation for GI bleed. You had an EGD and colonoscopy here which were both negative for bleed. You will follow up with GI to discuss further evaluation for your anemia. Until then, your School Program Director would like you to remain off Eliquis. In addition, while you were in the hospital, you had episodes of arrhythmia and were seen by Cardiology. Your digoxin and metoprolol were discontinued and you were started on Sotalol. Your medication changes at discharge are: 1. Eliquis Held (Please follow up with Cardiology to decide when this should be resumed) 2. Dixogin discontinued 3. Metoprolol discontinued 4. Sotalol 40mg twice a day (new) 5. Vitamin B 12 supplement (new) Pending Studies at Discharge: No Stand-Alone Forms: My [facility], Smoking Cessation Medications and DC Order Prescriptions: New sotalol 80 mg Tablet 40 mg PO BID 30 Days Qty: 30 0RF cyanocobalamin (vitamin B-12) [Vitamin B-12] 100 mcg Tablet 100 mcg PO QAM 30 Days Qty: 30 0RF Continued lansoprazole 15 mg capsule,delayed release(DR/EC) 15 mg PO DAILY PRN (Reason: heart burn) montelukast 10 mg tablet 10 mg PO PM folic acid 1 mg tablet 1 mg PO HS alprazolam 0.5 mg tablet 0.5 mg PO QID PRN (Reason: Anxiety) venlafaxine 150 mg capsule,extended release 24hr 150 mg PO QAM Qty: 30 ferrous sulfate 325 mg (65 mg iron) Tablet 325 mg PO DAILY ipratropium bromide 0.03 % spray,non-aerosol 2 spray INTRANASAL DAILY PRN (Reason: Sinus Symptoms) topiramate 25 mg Tablet 25 mg PO HS levothyroxine 137 mcg tablet 137 mcg PO QAM atorvastatin 20 mg tablet 20 mg PO QAM allopurinol 100 mg tablet 100 mg PO HS colchicine 0.6 mg tablet 0.6 mg PO QPM cholecalciferol (vitamin D3) [Vitamin D3] 50 mcg (2,000 unit) Capsule 150 mcg PO QAM Ozempic 0.25 mg or 0.5 mg(2 mg/1.5 mL) Pen Injector 0.25 mg SUBCUT WK Rx Instructions: Friday Evenings. aspirin 81 mg Tablet,Delayed Release (Dr/Ec) 81 mg PO HS Discontinued metoprolol succinate 50 mg tablet extended release 24 hr 50 mg PO HS digoxin 125 mcg (0.125 mg) tablet 125 mcg PO 3XWK Rx Instructions: TAKE THIS MED EVERY FRIDAY/FRIDAY/FRIDAY Eliquis 5 mg tablet 5 mg PO BID Discharge Orders: Discharge Order (Routine); Ordered 03/12/22 Ordered By: Negrita Gandhi/Other Patient Handouts: Dizziness Fainting Causes Admission Data Admit Date/Time: 03/06/22 14:33 Attending Provider: Negrita Decker Admit Provider: Negrita Decker Primary Care Provider: Florentin Calvo Other Providers: Negrita Decker ; Priscilla Jamil ; Isaías Márquez Other Interventions: Discharge Summary Assessment (RN) Last Done: 03/11/22 16:55
--- NOTE | 2022-03-12 17:13 | Electrocardiogram Report ---
Test Reason : Blood Pressure : / mmHG Vent. Rate : 060 BPM Atrial Rate : 060 BPM P-R Int : 214 ms QRS Dur : 074 ms QT Int : 450 ms P-R-T Axes : 035 019 003 degrees QTc Int : 450 ms Sinus rhythm with 1st degree A-V block Nonspecific T wave abnormality Abnormal ECG When compared with ECG of 11-MAR-2022 06:32, No significant change was found Confirmed by Carlos Karimi ([id number]) on 03/12/2022 5:12:49 PM Referred By: Florentin Calvo Confirmed By:Carlos Karimi
--- NOTE | 2022-03-12 17:21 | Communication Note ---
Date of Service: March 12, 2022 After discharge order was placed--> patient was asked to call her pharmacy to ensure her Sotalol can be filled tonight. She then walked to her doorway to t ell her nurse that Sotalol won't be available until tomorrow. While she was standing in the doorway, her legs began to shake and she nearly fell. Discharge was cancelled. She will remain overnight on IV fluids and have repeat PT evaluation tomorrow prior to discharge.
[2022-03-12] MEDS: SOTALOL HCL 80 MG TAB PO SCH (20:54)
[2022-03-12] MEDS: FOLIC ACID 1 MG TAB PO SCH (21:00)
[2022-03-12] MEDS: allopurinoL 100 MG TAB PO SCH (21:00)
[2022-03-12] MEDS: COLCHICINE 0.6 MG TAB PO SCH (21:00)
[2022-03-12] MEDS: MONTELUKAST SODIUM 10 MG TABLET PO SCH (21:01)
[2022-03-12] MEDS: ASPIRIN 81 MG ECTAB PO SCH (21:01)
[2022-03-12] MEDS: MELATONIN 3 MG TAB PO PRN (22:32)
[2022-03-13] MEDS: SODIUM CHLORIDE 0.9% 1000ML 1,000 ML IV SCH ×2 (03:10→09:11)
[2022-03-13] MEDS: LEVOTHYROXINE SODIUM 137 MCG TABLET PO SCH (06:04)
[2022-03-13 07:15] LABS: Hemoglobin 8.5 g/dl (12.0-16.0); Mean Corpuscular Hemoglobin 29.8 pg (25.0-34.0); Mean Corpuscular Hgb Conc 32.7 g/dL (32.0-36.0); Mean Corpuscular Volume 91.2 fL (80.0-100.0); Mean Platelet Volume 10.6 fL (9.4-12.3); Platelet Count 188 K/uL (130-400); RDW Coefficient of Variation 16.1 % (11.5-14.5); RDW Standard Deviation 53.4 fL (36.4-46.3); Red Blood Count 2.85 M/uL (3.93-5.22); White Blood Count 7.64 K/ul (4.8-10.8)
[2022-03-13 07:36] LABS: BUN Creatinine Ratio 15.6 (10-20); Calcium 8.4 mg/dl (8.5-10.1); Creatinine Clr Calc Pharmacy 36.4 ml/min; Est GFR (African American) 55.1 ml/min; Est GFR (Non-African American) 47.6 ml/min; Magnesium 1.6 mg/dl (1.7-2.4); Potassium 4.1 mmol/L (3.5-5.1)
[2022-03-13] MEDS: INSULIN ASPART PER UNIT SC SCH (09:06)
[2022-03-13] MEDS: CYANOCOBALAMIN (B-12) 100 MCG TABLET PO SCH (09:08)
[2022-03-13] MEDS: CHOLECALCIFEROL 1,000 UNITS 25 MCG TAB PO SCH (09:08)
[2022-03-13] MEDS: ATORVASTATIN 20 MG TAB PO SCH (09:08)
[2022-03-13] MEDS: SOTALOL HCL 80 MG TAB PO SCH (09:09)
[2022-03-13] MEDS: VENLAFAXINE HCL XR 150 MG CAPXR PO SCH (09:09)
[2022-03-13] MEDS: PANTOprazole 40 MG in SYRINGE 0 ML IV SCH (09:10)
[2022-03-13] MEDS: FERROUS SULFATE 325 MG TAB PO SCH (09:10)
[2022-03-13] MEDS: CHOLECALCIFEROL 5,000 UNITS 125 MCG TAB PO SCH (09:10)
[2022-03-13] MEDS ORDERED: MAGNESIUM OXIDE 400 MG TAB PO SCH (10:15)
--- NOTE | 2022-03-13 10:55 | Cardiology Progress Note ---
Date of Service March 13, 2022 Assessment & Plan (1) Acute on chronic anemia: (2) Near syncope: (3) Atrial fibrillation and flutter: Plan Patient presenting with symptomatic anemia. 1 unit PRBC's transfused. plan for colonoscopy and EGD on Friday (today), await results Paroxysmal atrial fibrillation currently remaining in sinus rhythm. Patient to be in hospital for planned procedure Friday we will use opportunity on telemetry to initiate antiarrhythmic therapy Tolerating antiarrhythmic therapy well Impression: Microcytic anemia without bleeding source identified. Paroxysmal atrial fibrillation status post Plan: Patient tolerating sotalol without tachycardia or bradycardia arrhythmia. Plan discharge dose of 40 mg bid Given rhythm stability, on antiarrhythmic therapy would hold anticoagulation additional 2 weeks until outpatient appointment Patient to ambulate in the hallway with assistance today if stable discharge Admission and Anticipated Discharge Date Admission Date: March 06, 2022 Subjective Patient seen and examined, chart, medications, telemetry reviewed. Feels well this morning. Ambulatory in the room. No further dizziness or lightheadedness. No arrhythmias on telemetry. Patient notes sotalol is now available at her pharmacy. No further dizziness or lightheadedness after episode last night likely multifactorial. No arrhythmias in association with event. Patient with extended hospitalization and recent GI prep and procedure Physical Exam Constitutional: WD/WN, vitals as above Eyes: PERRL, conjunctivae normal, anicteric sclerae Neck: trachea midline, no thyromegaly Respiratory: no respiratory distress Auscultation: lungs clear to auscultation bilaterally Cardiovascular: Rate/Rhythm: regular rate and regular rhythm Heart Sounds: no murmur Vessels: no JVD Extremities: no edema Gastrointestinal (Abdomen): normal bowel sounds, soft, nontender, no hepatosplenomegaly Neurologic: PERRL, EOMI, accommodation nl, no face palsy, no dysarthria Psychiatric: A+Ox3, euthymic affect Results & Data ([facility]) Vital Signs (Past 12 Hours) Vital Signs Temp Pulse Pulse Resp BP Pulse Ox O2 Del Method 03/13/22 07:05 36.3 C L 65 16 132/62 92 Room Air 03/13/22 03:33 36.4 C L 67 18 114/56 L 94 Room Air 03/12/22 23:03 36.3 C L 62 18 122/69 94 Room Air 03/12/22 23:04 63 Laboratory Results Laboratory Results - last 24 hr 03/12/22 03/12/22 03/12/22 11:15 17:13 20:19 WBC RBC Hgb Hct MCV MCH MCHC RDW Std Deviation RDW Coeff of Francisco Javier Plt Count MPV Sodium Potassium Chloride Carbon Dioxide Anion Gap BUN Creatinine Est Cr Clr Drug Dosing Est GFR ( Amer) Est GFR (Non-Af Amer) BUN/Creatinine Ratio Glucose POC Glucose 127 H 117 H 182 H Calcium Magnesium 03/13/22 03/13/22 03/13/22 06:58 06:58 07:09 WBC 7.64 RBC 2.85 L Hgb 8.5 L Hct 26.0 L MCV 91.2 MCH 29.8 MCHC 32.7 RDW Std Deviation 53.4 H RDW Coeff of Francisco Javier 16.1 H Plt Count 188 MPV 10.6 Sodium 139 Potassium 4.1 Chloride 109 H Carbon Dioxide 26 Anion Gap 4 BUN 17 Creatinine 1.09 Est Cr Clr Drug Dosing 36.4 Est GFR ( Amer) 55.1 Est GFR (Non-Af Amer) 47.6 BUN/Creatinine Ratio 15.6 Glucose 110 H POC Glucose 113 H Calcium 8.4 L Magnesium 1.6 L
--- NOTE | 2022-03-13 18:16 | Discharge Summary ---
Date of Service March 13, 2022 Admission HPI Per Admitting Provider Ms Inga Barakat is a 81 year old female with history of PAF on digoxin and Eliquis, asthma, meniere's disease, hypothyroidism and history of Covid 19 infection presents today feeling unwell with near syncope at home. Upon arrival here, her vitals are unremarkable, labwork significnat for Cr of 1.39 (baseline 1), WBC 11.5, Hb 9.2 (baseline 10-12). In triage, her BP was noted to be low (SBP 60s) and improved after NSS administration. ER course- Ertepenem, 1.5L NSS, Zofran 4mg IV Patient reports feeling weak, having a poor appetite and intermittent light headedness for past several months since she was diagnosed with Covid 19 in December. Patient reports her stool appears darker than usual (she takes daily iron), rectal exam in ER revealed dark brown stool that was heme negative She denies diarrhea, vomiting, chest pain/shortness of breath, rash, ulcer, or urinary symptoms. Admission Exam Per Admitting Provider Constitutional: WD/WN, vitals as above Eyes: PERRL, conjunctivae normal, anicteric sclerae ENMT: external ear and nose normal, oropharynx normal Respiratory: normal respiratory effort; no respiratory distress Auscultation: + diminished lung sounds Cardiovascular: Rate/Rhythm: + tachycardic and + irregularly irregular Vessels: normal peripheral pulses Extremities: no edema Gastrointestinal (Abdomen): normal bowel sounds, soft, nontender, no hepatosplenomegaly Musculoskeletal: no cyanosis or clubbing, extremities motor strength 5/5 Skin: no rashes, warm and dry Neurologic: PERRL, EOMI, accommodation nl, no face palsy, no dysarthria Psychiatric: A+Ox3, euthymic affect Principal Diagnosis Near syncope, TIFFANY, dehydration, acute on chronic anemia, SVT Discharge Exam General: Lying comfortably in bed, not in distress, on room air HEENT: EOMI, GIUSEPPE, MMM Chest: Clear breath sounds bilaterally, no wheezes or crackles CVS: Regular rate and rhythm, normal heart sounds, no murmur Abdomen: Soft, non tender, not distended, normal bowel sounds Neuro: Awake, alert, oriented, conversing well, non focal Extremities: No cyanosis, clubbing or edema Discharge Data Allergies Allergy/AdvReac Type Severity Reaction Status Date / Time Sulfa (Sulfonamide Allergy Severe Severe Verified 03/05/22 11:36 Antibiotics) rxn: rash and hives celecoxib Allergy Intermediate Rash/Hives/ Verified 03/05/22 11:36 Itching. cephalexin Allergy Intermediate Rash/Hives/ Verified 03/05/22 11:36 Itching. furosemide Allergy Intermediate Rash/Hives/ Verified 03/05/22 11:36 Itching. gabapentin Allergy Intermediate Rash/Hives/ Verified 03/05/22 11:36 Itching. pregabalin Allergy Intermediate Rash/Hives/ Verified 03/05/22 11:36 Itching. meclizine Allergy Unknown Unknown Verified 03/05/22 11:36 methylprednisolone Allergy Unknown Rash/Hives/ Verified 03/05/22 11:36 Itching. Penicillins Allergy Unknown Unknown. Verified 03/05/22 11:36 prednisone Allergy Unknown Rash/Hives/ Verified 03/05/22 11:36 Itching. vancomycin Allergy Unknown Jodi Verified 03/05/22 11:36 syn. . nickel Allergy Unknown Verified 03/05/22 11:36 dexamethasone AdvReac Intermediate Steroid Verified 03/05/22 11:36 psychosis. Consultations 03/05/22 13:01 ED Decision to Admit Stat 03/06/22 14:34 Consult Gastroenterology Routine 03/08/22 10:16 Consult Cardiology Routine Procedures Performed Operation Date: 03/11/22 16:00 Actual Procedures p Esophagogastroduodenoscopy - Priscilla Jamil DO s Colonoscopy - Priscilla Jamil, Ordered Studies Laboratory Results WBC 7.64 K/ul (4.8-10.8) 03/13/22 06:58 RBC 2.85 M/uL (3.93-5.22) L 03/13/22 06:58 Hgb 8.5 g/dl (12.0-16.0) L 03/13/22 06:58 Hct 26.0 % (34.1-44.9) L 03/13/22 06:58 MCV 91.2 fL (80.0-100.0) 03/13/22 06:58 MCH 29.8 pg (25.0-34.0) 03/13/22 06:58 MCHC 32.7 g/dL (32.0-36.0) 03/13/22 06:58 RDW Std Deviation 53.4 fL (36.4-46.3) H 03/13/22 06:58 RDW Coeff of Francisco Javier 16.1 % (11.5-14.5) H 03/13/22 06:58 Plt Count 188 K/uL (130-400) 03/13/22 06:58 MPV 10.6 fL (9.4-12.3) 03/13/22 06:58 Immature Gran % (Auto) 0.8 % 03/05/22 11:05 Neut % (Auto) 57.8 % 03/05/22 11:05 Lymph % (Auto) 23.8 % 03/05/22 11:05 [place] % (Auto) 10.4 % 03/05/22 11:05 Eos % (Auto) 6.6 % 03/05/22 11:05 Baso % (Auto) 0.6 % 03/05/22 11:05 Neut # (Auto) 6.67 K/uL (1.4-6.5) H 03/05/22 11:05 Lymph # (Auto) 2.75 K/uL (1.2-3.4) 03/05/22 11:05 [place] # (Auto) 1.20 K/uL (0.24-0.82) H 03/05/22 11:05 Eos # (Auto) 0.76 K/uL (0-0.50) H 03/05/22 11:05 Baso # (Auto) 0.07 K/uL (0-0.2) 03/05/22 11:05 Immature Gran # (Auto) 0.09 K/uL (0.00-0.02) H 03/05/22 11:05 PT 12.4 Seconds (9.0-12.0) H 03/05/22 11:05 INR 1.2 (0.9-1.1) H 03/05/22 11:05 APTT 26.0 Seconds (21.0-31.0) 03/05/22 11:05 PTT Ratio 0.9 03/05/22 11:05 Sodium 139 mmol/L (136-145) 03/13/22 06:58 Potassium 4.1 mmol/L (3.5-5.1) 03/13/22 06:58 Chloride 109 mmol/L (98-107) H 03/13/22 06:58 Carbon Dioxide 26 mmol/L (21-32) 03/13/22 06:58 Anion Gap 4 (3-11) 03/13/22 06:58 BUN 17 mg/dl (6-23) 03/13/22 06:58 Creatinine 1.09 mg/dl (0.6-1.2) 03/13/22 06:58 Est Cr Clr Drug Dosing 36.4 ml/min 03/13/22 06:58 Est GFR ( Amer) 55.1 ml/min 03/13/22 06:58 Est GFR (Non-Af Amer) 47.6 ml/min 03/13/22 06:58 BUN/Creatinine Ratio 15.6 (10-20) 03/13/22 06:58 Glucose 110 mg/dl (70-99(Fasting)) H 03/13/22 06:58 POC Glucose 113 mg/dl (70-99) H 03/13/22 07:09 Lactate 2.0 mmol/L (0.4-2.0) 03/05/22 11:30 Calcium 8.4 mg/dl (8.5-10.1) L 03/13/22 06:58 Phosphorus 3.5 mg/dl (2.5-4.9) 03/06/22 05:47 Magnesium 1.6 mg/dl (1.7-2.4) L 03/13/22 06:58 Iron 84 mcg/dl (35-150) 03/07/22 07:41 Unsaturated IBC 175 mcg/dl (155-355) 03/07/22 07:41 Total Bilirubin 0.5 mg/dl (0.2-1.0) 03/05/22 11:05 AST 46 U/L (13-39) H 03/05/22 11:05 ALT 42 U/L (7-52) 03/05/22 11:05 Alkaline Phosphatase 198 U/L (34-104) H 03/05/22 11:05 Troponin I High Sens 26.3 pg/ml (0-14) H 03/06/22 05:47 Total Protein 6.1 gm/dl (6.0-8.3) 03/05/22 11:05 Albumin 3.7 gm/dl (3.4-5.0) 03/05/22 11:05 Globulin 2.4 gm/dl (2.5-4.0) L 03/05/22 11:05 Albumin/Globulin Ratio 1.5 (0.9-2) 03/05/22 11:05 Vitamin B12 192 pg/ml (180-914) 03/07/22 07:41 Folate > 22.30 ng/ml (>5.38) 03/07/22 07:41 Procalcitonin 0.15 ng/ml (0-0.5) 03/05/22 11:05 TSH 0.812 uIu/ml (0.300-4.500) 03/06/22 05:47 Urine Color Yellow 03/05/22 16:50 Urine Appearance Clear (Clear) 03/05/22 16:50 Urine pH 5.0 (4.5-7.5) 03/05/22 16:50 Ur Specific [place] 1.013 (1.000-1.030) 03/05/22 16:50 Urine Protein Negative (Negative) 03/05/22 16:50 Urine Glucose (UA) Negative (Negative) 03/05/22 16:50 Urine Ketones Negative (Negative) 03/05/22 16:50 Urine Blood Negative (Negative) 03/05/22 16:50 Urine Nitrite Negative (Negative) 03/05/22 16:50 Urine Bilirubin Negative (Negative) 03/05/22 16:50 Urine Urobilinogen Negative (Negative) 03/05/22 16:50 Ur Leukocyte Esterase Trace (Negative) H 03/05/22 16:50 Urine WBC (Auto) 1-5 /hpf (0-5) 03/05/22 16:50 Urine RBC (Auto) 0-4 /hpf (0-4) 03/05/22 16:50 U Hyaline Cast (Auto) 1-5 /lpf (0-5) 03/05/22 16:50 U Epithel Cells (Auto) 20-30 /lpf (0-5) H 03/05/22 16:50 Urine Bacteria (Auto) Negative (Negative) 03/05/22 16:50 Digoxin 0.7 ng/ml (0.8-2.0) L 03/05/22 12:00 SARS-CoV-2 (PCR) POSITIVE (Negative) A* 03/05/22 12:30 Influenza Type A (PCR) Negative (Neg) 03/05/22 12:30 Influenza Type B (PCR) Negative (Neg) 03/05/22 12:30 RSV (RT-PCR) Negative (Neg) 03/05/22 12:30 Blood Type O Positive 03/06/22 14:54 Blood Type Recheck O Positive 03/06/22 15:45 Antibody Screen NEGATIVE 03/06/22 14:54 Crossmatch See Detail 03/06/22 14:54 Impressions Chest X-Ray 03/05/22 11:03 XR chest 1V portable CLINICAL HISTORY: SEPSIS TECHNIQUE: Single frontal radiograph of the chest was obtained. Comparison: Comparison is made to chest radiograph 01/04/2022 FINDINGS: Cervical spinal fixation hardware is seen. The aorta is tortuous. The remainder of the cardiomediastinal silhouette is unremarkable. The lungs are clear. No evidence of pleural effusion or pneumothorax. IMPRESSION: No acute abnormalities and in particular no evidence of pneumonia. ACT 112: Negative or not required by law. Electronically signed by: Christian Murray M.D. 03/05/2022 12:02 PM Hospital Course (1) Near syncope: (2) TIFFANY (acute kidney injury): (3) Dehydration: (4) Acute on chronic anemia: Plan Ms Inga Barakat is a 81 year old female with history of PAF on Eliquis, Digoxin, Metoprolol. History also of chronic anemia, Covid 19 infection in December then with resulting poor appetite and weakness, peripheral neuropathy and hypothyroidism was admitted 03/05 from home for presyncope. On arrival, she was noted to have low blood pressure (61/38) and TIFFANY (Cr 1.4 from baseline 1). She was placed on IV fluids with resolution of her dehydration and hypotension and symptoms of light headedness. After IV fluids, her hemoglobin dropped from 9 down to 7. Her Eliquis was held and she was seen by GI and had an EGD and colonoscopy 03/11 which was negative for bleed. She will follow up with GI outpatient for further evaluation which may include repeat colonoscopy and/or capsule study. While here, she was noted to have a run of SVT and Cardiology was consulted. Her telemetry was reviewed and she was noted to also have episodes of pauses. Her digoxin and metoprolol were discontinued and she was started on sotalol. She was monitored in the hospital for 4 days while being initiated on sotalol. She tolerated sotalol well and was discharged on sotalol 40mg BID. With regards to her Eliquis, Cardiology recommended she remain off Eliquis until her follow up with GI and her outpatient anemia workup is complete. She had iron studies, B12, and folate levels checked here. B12 levels were low normal and she was started on supplement. Her magnesium was low which was repleted and was discharged on oral supplementation. She was seen by PT several times in the hospital including on the day of discharge and was cleared for discharge home. She was discharged home in stable condition. All questions were answered to her satisfaction. Medication changes at discharge are: 1. Eliquis Held (will follow up with Cardiology to decide when this should be resumed) 2. Dixogin discontinued 3. Metoprolol discontinued 4. Sotalol 40mg twice a day (new) 5. Vitamin B 12 supplement (new) Total Time Total Time Spent Total Time Spent (In Minutes): 35 Discharge Plan Discharge Items Patient Disposition: Home - Self-Care Reason For Visit: NEAR SYNCOPE Discharge Diagnosis: Acute on chronic Anemia Paroxysmal A fib Peripheral Neuropathy TIFFANY Dehydration Low normal B12 Condition on Discharge: Fair Activity: Resume your previous activity Non-emergency contact: Primary Care Provider, Services Account Manager and Tow Motor Mechanic Call non-emergency contact if: you have any medication questions and your symptoms worsen Follow-up/Referrals: Isaías Márquez DO [Services Account Manager] - Florentin Calvo DO [Primary Care Provider] - Priscilla Jamil DO [Physician] - Diet: Regular Addtl Attending Provider Instructions: You were admitted for light headedness. You were found to have dehydration (and acute kidney injury) which resolved with IV fluids You symptoms of light headedness also resolved with IV fluids While here, you had worsening anemia (Hb 9 which dropped down to 7 ) after IV fluids. You had 1 unit blood here with good response and your hemoglobin has remained stable for the past 5 days. You had iron studies, B12, folate levels checked here which revealed low normal B12 and you were started on supplement. Because you are on Eliquis, you were kept in the hospital for further evaluation for GI bleed. You had an EGD and colonoscopy here which were both negative for bleed. You will follow up with GI to discuss further evaluation for your anemia. Until then, your Services Account Manager would like you to remain off Eliquis. In addition, while you were in the hospital, you had episodes of arrhythmia and were seen by Cardiology. Your digoxin and metoprolol were discontinued and you were started on Sotalol. Follow up with GI as soon as possible for further anemia work up. Your medication changes at discharge are: 1. Eliquis Held (Please follow up with Cardiology to decide when this should be resumed) 2. Dixogin discontinued 3. Metoprolol discontinued 4. Sotalol 40mg twice a day (new) 5. Vitamin B 12 supplement (new) 6. Magnesium supplement Pending Studies at Discharge: No Stand-Alone Forms: My [facility] [place], Smoking Cessation Medications and DC Order Prescriptions: New sotalol 80 mg Tablet 40 mg PO BID 30 Days Qty: 30 0RF cyanocobalamin (vitamin B-12) [Vitamin B-12] 100 mcg Tablet 100 mcg PO QAM 30 Days Qty: 30 0RF magnesium oxide 400 mg (241.3 mg magnesium) Tablet 400 mg PO DAILY Qty: 10 0RF Continued lansoprazole 15 mg capsule,delayed release(DR/EC) 15 mg PO DAILY PRN (Reason: heart burn) montelukast 10 mg tablet 10 mg PO PM folic acid 1 mg tablet 1 mg PO HS alprazolam 0.5 mg tablet 0.5 mg PO QID PRN (Reason: Anxiety) venlafaxine 150 mg capsule,extended release 24hr 150 mg PO QAM Qty: 30 ferrous sulfate 325 mg (65 mg iron) Tablet 325 mg PO DAILY ipratropium bromide 0.03 % spray,non-aerosol 2 spray INTRANASAL DAILY PRN (Reason: Sinus Symptoms) topiramate 25 mg Tablet 25 mg PO HS levothyroxine 137 mcg tablet 137 mcg PO QAM atorvastatin 20 mg tablet 20 mg PO QAM allopurinol 100 mg tablet 100 mg PO HS colchicine 0.6 mg tablet 0.6 mg PO QPM cholecalciferol (vitamin D3) [Vitamin D3] 50 mcg (2,000 unit) Capsule 150 mcg PO QAM Ozempic 0.25 mg or 0.5 mg(2 mg/1.5 mL) Pen Injector 0.25 mg SUBCUT WK Rx Instructions: Friday Evenings. aspirin 81 mg Tablet,Delayed Release (Dr/Ec) 81 mg PO HS Discontinued metoprolol succinate 50 mg tablet extended release 24 hr 50 mg PO HS digoxin 125 mcg (0.125 mg) tablet 125 mcg PO 3XWK Rx Instructions: TAKE THIS MED EVERY FRIDAY/FRIDAY/FRIDAY Eliquis 5 mg tablet 5 mg PO BID Discharge Orders: Discharge Order (Routine); Ordered 03/13/22 Ordered By: Sergio Gandhi/Other Patient Handouts: Dizziness Fainting Causes Admission Data Admit Date/Time: 03/06/22 14:33 Attending Provider: Sergio Allen Admit Provider: Negrita Decker Primary Care Provider: Florentin Calvo Other Providers: Negrita Decker ; Priscilla Jamil ; Isaías Márquez Other Interventions: Discharge Summary Assessment (RN) Last Done: 03/11/22 16:55
== END 2022-03-13 12:38 | disposition home or self-care (01) | DRG 683 ==
LOC: 2S 10:54 → ED 10:54 → 2S 15:10 → SUATTDRO 03-06 14:33 → 2S 03-12 17:53

== ENCOUNTER 2022-11-07 11:16 | Inpatient (IN) ==
[2022-11-07 11:48] LABS: iSTAT Creatinine 1.6 mg/dl (0.6-1.3); iSTAT Hemoglobin 12.2 g/dl (12.0-16.0); iSTAT Ionized Calcium 1.25 mmol/l (1.12-1.32); iSTAT Potassium 3.8 mmol/L (3.3-5.0)
--- NOTE | 2022-11-07 11:50 | Emergency Department Note ---
Impression & Plan Stroke-like symptoms ED Provider Note ED Provider Note NAME: LORI MORALES AGE:82 SEX: Female : 1940 ARRIVES VIA: Private vehicle INFORMANT: Patient ED PROVIDER(s): Lissette Benavidez DO CHIEF COMPLAINT: Strokelike symptoms, difficulty speaking, numbness HPI: This is an 82-year-old female presents emergency department due to concern for difficulty speaking as noted by family earlier this morning. Patient states she first began having numbness of her tongue approximately 2 days ago, this was intermittent and worse in the morning. She states when she felt that she had difficulty speaking. She states it was noted this morning by her daughter and due to her history of TIAs, they came in for evaluation. Speech at this time feels back to normal. Daughter states she has noticed over the course of the month, increased generalized weakness, fatigue. Patient recently had a pacemaker put in the beginning of the year and follows with Dr. Hewitt of cardiology. Daughter states she also recently had a severe ear infection and was on oral antibiotics which she just finished recently. She is still having some mild persistent ear pain. PAST MEDICAL HISTORY:See Below PAST SURGICAL HISTORY:See Below FAMILY HISTORY:See Below SOCIAL HISTORY:See Below HOME MEDICATIONS:See Below ALLERGIES:See Below VITALS:See Below PHYSICAL EXAMINATION: GENERAL: alert, well appearing, well nourished, no distress, non-toxic EYE EXAM: normal conjunctiva, PERRL and EOM's grossly intact EARS: Left TM clear without erythema or effusion, right TM with appearance of scarring, slight bulging, however no erythema or overt effusion, no edema along the canals bilaterally OROPHARYNX: no exudate, no erythema, lips, buccal mucosa, and tongue normal and mucous membranes are moist NECK: supple, no nuchal rigidity, no adenopathy, non-tender LUNGS: Clear to auscultation. Normal chest wall mechanics, no w/r/r HEART: no murmurs, S1 normal and S2 normal ABDOMEN: abdomen soft, non-tender, normo-active bowel sounds, no masses, no rebound or guarding. BACK: Back is symmetrical on inspection and there is no deformity, no midline tenderness, no CVA tenderness. SKIN: no rashes, petechiae, orbruising UPPER EXTREMITIES: upper extremities are grossly normal. FROM, nml pulses b/l. LOWER EXTREMITIES: No pitting edema. FROM, nml pulses b/l. NEURO EXAM: Normal sensorium, cranial nerves II-XII grossly intact, normal speech, no facial droop,nogross weakness of arms, no gross weakness of legs. Gross sensation intact. No ataxia. Negative pronator drift. Normal [id number]. Vital Signs: reviewed and remarkable Differential Diagnosis: Differential Diagnosis includes but is not limited to ischemic Stroke, hemorrhagic stroke, bells palsy, mass, neoplasm, migraine headache, seizure, subarachnoid hemorrhage, TIA, and transient global amnesia. MEDICAL DECISION MAKING: This is an 82-year-old female who presents with daughter bedside due to concern for tongue numbness and dysarthria that daughter noticed today. Patient states symptoms have been intermittent for several days. Given patient's prior history of TIAs and risk factors, a strokelike work-up was started. Labs drawn and sent, IV established, EKG performed and interpreted by me at bedside, chest x- ray performed and interpreted by me at bedside, patient sent for CT/CTA. Patient's labs and imaging reassuring. After additional review of prior records we discussed MRI to further rule out TIA. After discussion with the obstetrics technician and with the [employer] franchise sales representative due to her indwelling pacemaker, this was able to be arranged and performed this afternoon. MRI reassuring. It was noted on the radiology read of the chest x-ray the patient had pulmonary edema, and given daughters mention of increased dyspnea with exertion over the last month as well as recently increased torsemide as an outpatient, a BNP was added. This was noted to be markedly elevated also. Patient denied any significant change in weight as she weighs herself daily, and no lower extremity edema was noted. An ambulatory pulse ox was performed and patient did not have any overt hypoxia although did have increased dyspnea with exertion. Case discussed with on-call [facility] cardiology Dr. Márquez who recommended inpatient management and dose of IV Lasix at this time. Consultation(s): 1713: Discussed with Dr. Márquez. Recommends inpatient management for cautious diuresis at this time given patient's age, comorbidities, and renal dysfunction. 1228: Discussed with Dr. Duarte, [facility] hospitalist team. ER Treatment Provided: See below 1336: Patient and family updated on results. Patient feels speech is improved and daughter at bedside confirms that is almost back to normal. Daughter also confirms the torsemide was increased approximately a month ago to twice daily, which may explain some of the kidney dysfunction. They states she typically drinks about 40 ounces of water a day, and was not previously placed on any fluid restriction. Diagnostics Interpreted By Me: -ECG: Paced at 67, rightward axis, prolonged intervals, no acute ST/T wave changes -Cardiac Monitoring: An order was placed for continuous cardiac monitoring. The monitor shows a rate of 70 with paced rhythm. -Laboratory studies: As stated above and show below. -Imaging studies: X-ray Chest: A single view study of the chest was reviewed and was negative for cardiomegaly, focal infiltrate, effusion, pulmonary edema, or wide mediastinum. Triage Nursing Note Reviewed Prior/Outside Records Reviewed - outside cardiology records reviewed Procedures: [] Critical Care: [] Past Med/Surg History Medical History TIFFANY (acute kidney injury) Asthma, moderate persistent Atrial fibrillation and flutter CKD (chronic kidney disease), stage III Dehydration Depression Elevated brain natriuretic peptide (BNP) level History of tobacco abuse HTN (hypertension) Hypotension Hypothyroidism Leukocytosis Meniere disease Nausea Near syncope Near syncope RADHA (obstructive sleep apnea) Osteoarthritis of right knee Pneumonia Surgical History H/O sinus surgery History of cholecystectomy History of hysterectomy History of laminectomy History of repair of left rotator cuff Hx of neck surgery Family History Father Diabetes Social History Smoking Status: Former smoker Tobacco Type: Cigarettes packs per day: 1.5; Cigarettes Per Day: 30; Second Hand Exposure: No; Hx Alcohol Use: No Hx Substance Use: No Preferred Language: Indonesian Communication Ability: Effective Food Cart Attendant Required: No Beliefs That Will Affect Care: None marital status: Current Living Situation: Spouse Feels Safe at Home: Yes Assistive Devices: Cane and Walker Allergies Allergies Allergy/AdvReac Type Severity Reaction Status Date / Time Sulfa (Sulfonamide Allergy Severe Severe Verified 11/07/22 14:24 Antibiotics) rxn: rash and hives celecoxib Allergy Intermediate Rash/Hives/ Verified 11/07/22 14:24 Itching. cephalexin Allergy Intermediate Rash/Hives/ Verified 11/07/22 14:24 Itching. furosemide Allergy Intermediate Rash/Hives/ Verified 11/07/22 14:24 Itching. gabapentin Allergy Intermediate Rash/Hives/ Verified 11/07/22 14:24 Itching. pregabalin Allergy Intermediate Rash/Hives/ Verified 11/07/22 14:24 Itching. meclizine Allergy Unknown Unknown Verified 11/07/22 14:24 methylprednisolone Allergy Unknown Rash/Hives/ Verified 11/07/22 14:24 Itching. Penicillins Allergy Unknown Unknown. Verified 11/07/22 14:24 prednisone Allergy Unknown Rash/Hives/ Verified 11/07/22 14:24 Itching. vancomycin Allergy Unknown Jodi Verified 11/07/22 14:24 syn. . nickel Allergy Unknown Verified 11/07/22 14:24 dexamethasone AdvReac Intermediate Steroid Verified 11/07/22 14:24 psychosis. Home Meds Home Medications Medication Instructions Recorded Confirmed alprazolam 0.5 mg tablet 0.25 mg PO HS 04/08/19 11/07/22 lansoprazole 15 mg capsule,delayed 15 mg PO QAM 04/08/19 11/07/22 release montelukast 10 mg tablet 10 mg PO PM 04/08/19 11/07/22 ferrous sulfate 325 mg (65 mg 325 mg PO DAILY 06/03/20 11/07/22 iron) tablet allopurinol 100 mg tablet 200 mg PO HS 11/26/21 11/07/22 atorvastatin 20 mg tablet 20 mg PO QAM 11/26/21 11/07/22 cholecalciferol (vitamin D3) 50 100 mcg PO QAM 11/26/21 11/07/22 mcg (2,000 unit) capsule (Vitamin D3) aspirin 81 mg tablet,delayed 81 mg PO HS 01/04/22 11/07/22 release levalbuterol tartrate 45 1 puff inhalation Q4 PRN Shortness 08/07/22 11/07/22 mcg/actuation aerosol inhaler Of Breath (Xopenex HFA) sertraline 100 mg tablet 100 mg PO DAILY 08/07/22 11/07/22 sotalol 80 mg tablet 40 mg PO AMPM 08/07/22 11/07/22 cyanocobalamin (vitamin B-12) 100 100 mcg PO DAILY 11/07/22 11/07/22 mcg tablet (Vitamin B-12) levothyroxine 150 mcg tablet 150 mcg PO QAM 11/07/22 11/07/22 tiotropium 2.5 mcg-olodaterol 2.5 2 puff inhalation QAM 11/07/22 11/07/22 mcg/actuation mist for inhalation (Stiolto Respimat) torsemide 10 mg tablet 10 mg PO BID 11/07/22 11/07/22 Results & Data (ED) Vital Signs Vital Signs - 24 hr 11/07/22 11:19 11/07/22 11:30 11/07/22 12:06 Temperature 36.1 C L Temperature Source Skin Pulse Rate 75 72 Pulse Rate [Exercises] Pulse Rate [Left Apical] 62 Pulse Rate from SpO2 Sensor Respiratory Rate 20 20 Respiratory Rate [Exercises] Respiratory Effort / Characteristics Non-Labored Spontaneous Respiratory Depth Normal Blood Pressure 128/58 L Blood Pressure [Right Arm] 121/69 Blood Pressure Mean 81 Blood Pressure Mean [Right Arm] 86 Pulse Oximetry 96 93 Pulse Oximetry [Exercises] Oxygen Delivery Method Room Air Room Air Sepsis Recent Fever Within 48 Hours No Sepsis New/Unexplained Change in Mental Status N/A Sepsis Action Taken by Nursing No Action Required 11/07/22 12:20 11/07/22 12:30 11/07/22 13:09 Temperature Temperature Source Pulse Rate 61 62 63 Pulse Rate [Exercises] Pulse Rate [Left Apical] Pulse Rate from SpO2 Sensor Respiratory Rate 14 13 19 Respiratory Rate [Exercises] Respiratory Effort / Characteristics Respiratory Depth Blood Pressure 108/60 115/58 L 114/60 Blood Pressure [Right Arm] Blood Pressure Mean 76 77 78 Blood Pressure Mean [Right Arm] Pulse Oximetry 96 91 94 Pulse Oximetry [Exercises] Oxygen Delivery Method Room Air Room Air Room Air Sepsis Recent Fever Within 48 Hours Sepsis New/Unexplained Change in Mental Status Sepsis Action Taken by Nursing 11/07/22 13:30 11/07/22 14:00 11/07/22 15:51 Temperature Temperature Source Pulse Rate 64 63 65 Pulse Rate [Exercises] Pulse Rate [Left Apical] Pulse Rate from SpO2 Sensor Respiratory Rate 20 21 Respiratory Rate [Exercises] Respiratory Effort / Characteristics Respiratory Depth Blood Pressure 122/52 L 124/60 123/70 Blood Pressure [Right Arm] Blood Pressure Mean 75 81 87 Blood Pressure Mean [Right Arm] Pulse Oximetry 93 92 90 Pulse Oximetry [Exercises] Oxygen Delivery Method Room Air Room Air Room Air Sepsis Recent Fever Within 48 Hours Sepsis New/Unexplained Change in Mental Status Sepsis Action Taken by Nursing 11/07/22 16:00 11/07/22 16:30 11/07/22 16:54 Temperature Temperature Source Pulse Rate 65 Pulse Rate [Exercises] 67 Pulse Rate [Left Apical] Pulse Rate from SpO2 Sensor 65 Respiratory Rate Respiratory Rate [Exercises] 20 Respiratory Effort / Characteristics Respiratory Depth Blood Pressure 138/65 126/68 Blood Pressure [Right Arm] Blood Pressure Mean 89 87 Blood Pressure Mean [Right Arm] Pulse Oximetry 98 95 Pulse Oximetry [Exercises] 95 Oxygen Delivery Method Room Air Room Air Sepsis Recent Fever Within 48 Hours Sepsis New/Unexplained Change in Mental Status Sepsis Action Taken by Nursing 11/07/22 17:06 11/07/22 17:34 11/07/22 17:08 Temperature Temperature Source Pulse Rate 62 68 Pulse Rate [Exercises] 69 Pulse Rate [Left Apical] Pulse Rate from SpO2 Sensor Respiratory Rate 21 Respiratory Rate [Exercises] 24 Respiratory Effort / Characteristics Respiratory Depth Blood Pressure 130/63 Blood Pressure [Right Arm] Blood Pressure Mean 85 Blood Pressure Mean [Right Arm] Pulse Oximetry 96 Pulse Oximetry [Exercises] 94 Oxygen Delivery Method Room Air Room Air Sepsis Recent Fever Within 48 Hours Sepsis New/Unexplained Change in Mental Status Sepsis Action Taken by Nursing 11/07/22 17:31 11/07/22 18:01 Temperature Temperature Source Pulse Rate 63 66 Pulse Rate [Exercises] Pulse Rate [Left Apical] Pulse Rate from SpO2 Sensor Respiratory Rate 19 21 Respiratory Rate [Exercises] Respiratory Effort / Characteristics Respiratory Depth Blood Pressure 128/62 140/69 Blood Pressure [Right Arm] Blood Pressure Mean 84 92 Blood Pressure Mean [Right Arm] Pulse Oximetry 96 92 Pulse Oximetry [Exercises] Oxygen Delivery Method Room Air Room Air Sepsis Recent Fever Within 48 Hours Sepsis New/Unexplained Change in Mental Status Sepsis Action Taken by Nursing Laboratory Data 11/07/22 11:30 11/07/22 11:30 Lab Results 11/07/22 11/07/22 11/07/22 Range/Units 11:30 11:30 11:30 WBC 9.33 (4.8-10.8) K/ul RBC 3.87 L (4.20-5.40) M/uL Hgb 11.0 L (12.0-16.0) g/dl POC Hgb (12.0-16.0) g/dl Hct 33.5 L (37.0-47.0) % POC Hct (37-47) % MCV 86.6 (80.0-100.0) fL MCH 28.4 (25.0-34.0) pg MCHC 32.8 (32.0-36.0) g/dL RDW Std Deviation 54.6 H (36.4-46.3) fL RDW Coeff of Francisco Javier 17.3 H (11.5-14.5) % Plt Count 224 (130-400) K/uL MPV 10.9 (9.4-12.4) fL Immature Gran % (Auto) 0.4 % Neut % (Auto) 67.9 % Lymph % (Auto) 15.3 % Will % (Auto) 10.2 % Eos % (Auto) 5.4 % Baso % (Auto) 0.8 % Neut # (Auto) 6.34 (1.40-6.50) K/uL Lymph # (Auto) 1.43 (1.2-3.4) K/uL Will # (Auto) 0.95 H (0.11-0.59) K/uL Eos # (Auto) 0.50 (0-0.50) K/uL Baso # (Auto) 0.07 (0-0.2) K/uL Immature Gran # (Auto) 0.04 (0.01-0.20) K/uL PT 11.1 (9.0-12.0) Seconds INR 1.0 (0.9-1.1) APTT 27.0 (21.0-31.0) Seconds PTT Ratio 1.0 POC Sodium (135-144) mmol/L Sodium 138 (136-145) mmol/L POC Potassium (3.3-5.0) mmol/L Potassium 3.9 (3.5-5.1) mmol/L POC Chloride (101-112) mmol/L Chloride 103 (98-107) mmol/L Carbon Dioxide 25 (21-32) mmol/L POC Total CO2 (24-31) mmol/L Anion Gap 10 (3-11) POC Anion Gap (16-25) mmol/L POC BUN (7-18) mg/dl BUN 59 H (6-23) mg/dl Creatinine 1.45 H (0.6-1.2) mg/dl POC Creatinine (0.6-1.3) mg/dl Est Cr Clr Drug Dosing 29.1 ml/min Est GFR ( Amer) 38.8 ml/min Est GFR (Non-Af Amer) 33.5 ml/min BUN/Creatinine Ratio 40.7 H (10-20) Glucose 128 H (70-99(Fasting)) mg/dl POC Glucose (70-99) mg/dl POC Glucose (other) (70-99) mg/dl Calcium 9.7 (8.5-10.1) mg/dl POC Ioniz Calcium Savage (1.12-1.32) mmol/l Magnesium 2.2 (1.7-2.4) mg/dl Total Bilirubin 0.5 (0.2-1.0) mg/dl AST 47 H (13-39) U/L ALT 22 (7-52) U/L Alkaline Phosphatase 175 H (34-104) U/L Troponin I High Sens 17.4 H (0-14) pg/ml B-Natriuretic Peptide (0-100) pg/ml Total Protein 7.1 (6.0-8.3) gm/dl Albumin 4.1 (3.4-5.0) gm/dl Globulin 3.0 (2.5-4.0) gm/dl Albumin/Globulin Ratio 1.4 (0.9-2) Urine Color Urine Appearance (Clear) Urine pH (4.5-7.5) Ur Specific [place] (1.000-1.030) Urine Protein (Negative) Urine Glucose (UA) (Negative) Urine Ketones (Negative) Urine Blood (Negative) Urine Nitrite (Negative) Urine Bilirubin (Negative) Urine Urobilinogen (Negative) Ur Leukocyte Esterase (Negative) Urine RBC (0-4) /hpf Urine WBC (0-5) /hpf Ur Epithelial Cells (0-5) /lpf Urine Bacteria (Negative) SARS-CoV-2, RNA, NAAT (NEGATIVE) 11/07/22 11/07/22 11/07/22 Range/Units 11:36 12:43 13:06 WBC (4.8-10.8) K/ul RBC (4.20-5.40) M/uL Hgb (12.0-16.0) g/dl POC Hgb 12.2 (12.0-16.0) g/dl Hct (37.0-47.0) % POC Hct 36 L (37-47) % MCV (80.0-100.0) fL MCH (25.0-34.0) pg MCHC (32.0-36.0) g/dL RDW Std Deviation (36.4-46.3) fL RDW Coeff of Francisco Javier (11.5-14.5) % Plt Count (130-400) K/uL MPV (9.4-12.4) fL Immature Gran % (Auto) % Neut % (Auto) % Lymph % (Auto) % Will % (Auto) % Eos % (Auto) % Baso % (Auto) % Neut # (Auto) (1.40-6.50) K/uL Lymph # (Auto) (1.2-3.4) K/uL Will # (Auto) (0.11-0.59) K/uL Eos # (Auto) (0-0.50) K/uL Baso # (Auto) (0-0.2) K/uL Immature Gran # (Auto) (0.01-0.20) K/uL PT (9.0-12.0) Seconds INR (0.9-1.1) APTT (21.0-31.0) Seconds PTT Ratio POC Sodium 138 (135-144) mmol/L Sodium (136-145) mmol/L POC Potassium 3.8 (3.3-5.0) mmol/L Potassium (3.5-5.1) mmol/L POC Chloride 102 (101-112) mmol/L Chloride (98-107) mmol/L Carbon Dioxide (21-32) mmol/L POC Total CO2 24 (24-31) mmol/L Anion Gap (3-11) POC Anion Gap 17.0 (16-25) mmol/L POC BUN 52 H (7-18) mg/dl BUN (6-23) mg/dl Creatinine (0.6-1.2) mg/dl POC Creatinine 1.6 H (0.6-1.3) mg/dl Est Cr Clr Drug Dosing ml/min Est GFR ( Amer) ml/min Est GFR (Non-Af Amer) ml/min BUN/Creatinine Ratio (10-20) Glucose (70-99(Fasting)) mg/dl POC Glucose 120 H (70-99) mg/dl POC Glucose (other) 127 H (70-99) mg/dl Calcium (8.5-10.1) mg/dl POC Ioniz Calcium Savage 1.25 (1.12-1.32) mmol/l Magnesium (1.7-2.4) mg/dl Total Bilirubin (0.2-1.0) mg/dl AST (13-39) U/L ALT (7-52) U/L Alkaline Phosphatase (34-104) U/L Troponin I High Sens (0-14) pg/ml B-Natriuretic Peptide 1055 H (0-100) pg/ml Total Protein (6.0-8.3) gm/dl Albumin (3.4-5.0) gm/dl Globulin (2.5-4.0) gm/dl Albumin/Globulin Ratio (0.9-2) Urine Color Urine Appearance (Clear) Urine pH (4.5-7.5) Ur Specific [place] (1.000-1.030) Urine Protein (Negative) Urine Glucose (UA) (Negative) Urine Ketones (Negative) Urine Blood (Negative) Urine Nitrite (Negative) Urine Bilirubin (Negative) Urine Urobilinogen (Negative) Ur Leukocyte Esterase (Negative) Urine RBC (0-4) /hpf Urine WBC (0-5) /hpf Ur Epithelial Cells (0-5) /lpf Urine Bacteria (Negative) SARS-CoV-2, RNA, NAAT (NEGATIVE) 11/07/22 11/07/22 Range/Units 13:53 17:01 WBC (4.8-10.8) K/ul RBC (4.20-5.40) M/uL Hgb (12.0-16.0) g/dl POC Hgb (12.0-16.0) g/dl Hct (37.0-47.0) % POC Hct (37-47) % MCV (80.0-100.0) fL MCH (25.0-34.0) pg MCHC (32.0-36.0) g/dL RDW Std Deviation (36.4-46.3) fL RDW Coeff of Francisco Javier (11.5-14.5) % Plt Count (130-400) K/uL MPV (9.4-12.4) fL Immature Gran % (Auto) % Neut % (Auto) % Lymph % (Auto) % Will % (Auto) % Eos % (Auto) % Baso % (Auto) % Neut # (Auto) (1.40-6.50) K/uL Lymph # (Auto) (1.2-3.4) K/uL Will # (Auto) (0.11-0.59) K/uL Eos # (Auto) (0-0.50) K/uL Baso # (Auto) (0-0.2) K/uL Immature Gran # (Auto) (0.01-0.20) K/uL PT (9.0-12.0) Seconds INR (0.9-1.1) APTT (21.0-31.0) Seconds PTT Ratio POC Sodium (135-144) mmol/L Sodium (136-145) mmol/L POC Potassium (3.3-5.0) mmol/L Potassium (3.5-5.1) mmol/L POC Chloride (101-112) mmol/L Chloride (98-107) mmol/L Carbon Dioxide (21-32) mmol/L POC Total CO2 (24-31) mmol/L Anion Gap (3-11) POC Anion Gap (16-25) mmol/L POC BUN (7-18) mg/dl BUN (6-23) mg/dl Creatinine (0.6-1.2) mg/dl POC Creatinine (0.6-1.3) mg/dl Est Cr Clr Drug Dosing ml/min Est GFR ( Amer) ml/min Est GFR (Non-Af Amer) ml/min BUN/Creatinine Ratio (10-20) Glucose (70-99(Fasting)) mg/dl POC Glucose (70-99) mg/dl POC Glucose (other) (70-99) mg/dl Calcium (8.5-10.1) mg/dl POC Ioniz Calcium [place] (1.12-1.32) mmol/l Magnesium (1.7-2.4) mg/dl Total Bilirubin (0.2-1.0) mg/dl AST (13-39) U/L ALT (7-52) U/L Alkaline Phosphatase (34-104) U/L Troponin I High Sens (0-14) pg/ml B-Natriuretic Peptide (0-100) pg/ml Total Protein (6.0-8.3) gm/dl Albumin (3.4-5.0) gm/dl Globulin (2.5-4.0) gm/dl Albumin/Globulin Ratio (0.9-2) Urine Color Yellow Urine Appearance Clear (Clear) Urine pH 5.5 (4.5-7.5) Ur Specific [place] 1.010 (1.000-1.030) Urine Protein Negative (Negative) Urine Glucose (UA) Negative (Negative) Urine Ketones Negative (Negative) Urine Blood Trace-intact H (Negative) Urine Nitrite Negative (Negative) Urine Bilirubin Negative (Negative) Urine Urobilinogen Negative (Negative) Ur Leukocyte Esterase 2+ H (Negative) Urine RBC 0-4 (0-4) /hpf Urine WBC 5-10 H (0-5) /hpf Ur Epithelial Cells >30 H (0-5) /lpf Urine Bacteria Negative (Negative) SARS-CoV-2, RNA, NAAT NEGATIVE (NEGATIVE) Administered Medications Sodium Chloride (Nss 1000ml) 1,000 mls @ 125 mls/hr IV .Q8H JULIO CESAR Stop: 12/07/22 11:44 Last Admin: 11/07/22 12:20 Dose: 125 mls/hr Documented By: MMZ Discontinued Medications Furosemide (Furosemide 40 Mg/4 Ml Vial) 40 mg IV ONE ONE Stop: 11/07/22 17:15 Last Admin: 11/07/22 17:49 Dose: 40 mg Documented By: [facility] Ioversol (Optiray 320 500ml) 115 ml IV ONCE ONE Stop: 11/07/22 12:03 Last Admin: 11/07/22 11:53 Dose: 115 ml Documented By: M Imaging Data Radiologist's Impression: Chest X-Ray 11/07/22 11:43 XR chest 1V portable CLINICAL HISTORY: neuro deficit, acute stroke suspected COMPARISON STUDY: Chest CT January 04, 2022. Chest radiograph August 07, 2022. FINDINGS: Postoperative findings within the cervical spine are incidentally noted. There is a dual-lead left subclavian pacer. No pneumothorax or pleural effusion is noted. Cardiomegaly is unchanged. There is pulmonary vascular congestion with possible mild pulmonary edema is no consolidation to suggest pneumonia. IMPRESSION: Suspected mild pulmonary edema. Cardiomegaly. ACT 112: Negative or not required by law. Electronically signed by: Otoniel Lemus M.D. 11/07/2022 1:[address] 11/07/22 11:43 CT OF THE HEAD WITHOUT CONTRAST CLINICAL HISTORY: neuro deficit, acute stroke suspected COMPARISON STUDY: Head CT and CTA of the head November 26, 2021. CT DOSE: 998.87 mGy.cm TECHNIQUE: Helical axial images of the head were obtained without IV contrast. Automated exposure control was utilized for the study. A dose lowering technique was utilized adhering to the principles of ALARA. FINDINGS: No acute intracranial hemorrhage, midline shift or mass effect is present. Ventricular system is unremarkable. Basal cisterns are patent. There are no extra-axial collections. White matter hypodensities are unchanged and favor small vessel disease. There are no findings to suggest acute dural sinus thrombosis or acute territorial infarct. Left maxillary sinus is nearly entirely opacified. This has developed since prior exam. There is mild mucosal thickening of the right maxillary sinus. Right mastoid air cells are partially opacified. IMPRESSION: No acute intracranial findings. No change in appearance of the brain. ACT 112: Negative or not required by law. Electronically signed by: Otoniel Lemus M.D. 11/07/2022 12:29 PM Head CTA 11/07/22 11:43 HEAD & NECK CTA HISTORY: neuro deficit, acute stroke suspected TECHNIQUE: Multiaxial CT images of the head were performed following the intravenous administration of contrast to evaluate the major cerebral vessels. Multiaxial CT images of the neck were also performed following the intravenous administration of contrast to evaluate the major cervical vessels. Maximum intensity projection images were also obtained. A dose lowering technique was utilized adhering to the principles of ALARA. COMPARISON: Head and neck CTA 11/26/2021. FINDINGS: There is no mass, hematoma, midline shift, or acute infarct. Visualized intracranial internal carotid arteries, distal vertebral arteries, and basilar artery are widely patent. There is no significant stenosis, occlusion, or aneurysm seen within the bilateral ACAs, MCAs, or assistant import manager. Stable 2 mm aneurysm w ithin the left supraclinoid ICA on image 114. 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 Paranasal sinus disease noted. The aortic arch and proximal great vessels are widely patent. There is no significant stenosis, occlusion, or dissection identified within the bilateral common carotid, internal carotid, or vertebral arteries. Interstitial thickening within the lung apices. Posterior cervical spinal fusion hardware. IMPRESSION: 1. No significant stenosis or occlusion within the te[place] of [place]. 2. No significant stenosis, occlusion, or dissection identified within the carotid or vertebral arteries. 3. 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 ACT 112: Negative or not required by law. Electronically signed by: Jean-Claude Anderson M.D. 11/07/2022 12:41 PM Neck CTA 11/07/22 11:43 HEAD & NECK CTA HISTORY: neuro deficit, acute stroke suspected TECHNIQUE: Multiaxial CT images of the head were performed following the intravenous administration of contrast to evaluate the major cerebral vessels. Multiaxial CT images of the neck were also performed following the intravenous administration of contrast to evaluate the major cervical vessels. Maximum inte nsity projection images were also obtained. A dose lowering technique was utilized adhering to the principles of ALARA. COMPARISON: Head and neck CTA 11/26/2021. FINDINGS: There is no mass, hematoma, midline shift, or acute infarct. Visualized intracranial internal carotid arteries, distal vertebral arteries, and basilar artery are widely patent. There is no significant stenosis, occlusion, or aneurysm seen within the bilateral ACAs, MCAs, or assistant import manager. 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 Paranasal sinus disease noted. The aortic arch and proximal great vessels are widely patent. There is no sig nificant stenosis, occlusion, or dissection identified within the bilateral common carotid, internal carotid, or vertebral arteries. Interstitial thickening within the lung apices. Posterior cervical spinal fusion hardware. IMPRESSION: 1. No significant stenosis or occlusion within the [place]. 2. No significant stenosis, occlusion, or dissection identified within the carotid or vertebral arteries. 3. 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 ACT 112: Negative or not required by law. Electronically signed by: Jean-Claude Anderson M.D. 11/07/2022 12:41 PM Brain MRI 11/07/22 14:01 MRI OF THE BRAIN WITHOUT CONTRAST CLINICAL HISTORY: Stroke like symptoms. Difficulty speaking. Tongue numbness. COMPARISON STUDY: Head CT and CTA of the head performed earlier today. MRI of the brain March 19, 2013. TECHNIQUE: Utilizing a 1.5 Zoila magnet and dedicated coil, multiplanar, mult iecho imaging of the brain was performed without IV contrast. FINDINGS: There are no foci of restricted diffusion to suggest acute infarct. No acute intracranial hemorrhage, midline shift or mass effect is present. Ventricular system is unremarkable. Basal cisterns are patent. There are no extra axial collections. Flow-voids for the major intracranial vessels are present. No intracranial mass is identified on this unenhanced exam. White matter T2 hyperintense foci suggest moderate small vessel disease. Calvarial signal is normal. Left maxillary sinus is opacified. There is moderate mucosal thickening of the ethmoid and right maxillary sinuses. Right mastoid air cells are partially opacified. IMPRESSION: No acute intracranial findings. ACT 112: Negative or not required by law. Electronically signed by: Otoniel Lemus M.D. 11/07/2022 4:23 PM Discharge Plan Visit Data Chief Complaint: TIA Symptoms Stated Complaint: SLURRED SPEACH,TINGLE,HISTORY OF TIA, DOC REF ED Provider: Lissette Benavidez Discharge Problem: Stroke-like symptoms Discharge Instructions Interventions: ED Discharge Assessment Last Done: 11/07/22 20:01 Forms Stand Alone Forms: [facility] Prescriptions Prescriptions: No Action lansoprazole 15 mg capsule,delayed release(DR/EC) 15 mg PO QAM montelukast 10 mg tablet 10 mg PO PM alprazolam 0.5 mg tablet 0.25 mg PO HS ferrous sulfate 325 mg (65 mg iron) Tablet 325 mg PO DAILY atorvastatin 20 mg tablet 20 mg PO QAM allopurinol 100 mg tablet 200 mg PO HS cholecalciferol (vitamin D3) [Vitamin D3] 50 mcg (2,000 unit) Capsule 100 mcg PO QAM aspirin 81 mg Tablet,Delayed Release (Dr/Ec) 81 mg PO HS sertraline 100 mg Tablet 100 mg PO DAILY sotalol 80 mg Tablet 40 mg PO AMPM levalbuterol tartrate [Xopenex HFA] 45 mcg/actuation Hfa Aerosol Inhaler 1 puff INHALATION Q4 PRN (Reason: Shortness Of Breath) cyanocobalamin (vitamin B-12) [Vitamin B-12] 100 mcg Tablet 100 mcg PO DAILY torsemide 10 mg tablet 10 mg PO BID Rx Instructions: Take in AM & afternoon levothyroxine 150 mcg tablet 150 mcg PO QAM Stiolto Respimat 2.5-2.5 mcg/actuation mist 2 puff INHALATION QAM Referrals Referrals: Florentin Calvo, [Primary Care Provider] -
[2022-11-07 12:02] LABS: Basophils # (auto) 0.07 K/uL (0-0.2); Basophils % (auto) 0.8 %; Eosinophils % (auto) 5.4 %; Hematocrit (blood only) 33.5 % (37.0-47.0); Immature Granulocytes # (auto) 0.04 K/uL (0.01-0.20); Immature Granulocytes % (auto) 0.4 %; Lymphocytes # (auto) 1.43 K/uL (1.2-3.4); Lymphocytes % (auto) 15.3 %; Mean Corpuscular Hemoglobin 28.4 pg (25.0-34.0); Mean Corpuscular Hgb Conc 32.8 g/dL (32.0-36.0); Mean Corpuscular Volume 86.6 fL (80.0-100.0); Mean Platelet Volume 10.9 fL (9.4-12.4); Monocytes # (auto) 0.95 K/uL (0.11-0.59); Monocytes % (auto) 10.2 %; Neutrophils # (auto) 6.34 K/uL (1.40-6.50); Neutrophils % (auto) 67.9 %; Platelet Count 224 K/uL (130-400); RDW Coefficient of Variation 17.3 % (11.5-14.5); RDW Standard Deviation 54.6 fL (36.4-46.3); Red Blood Count 3.87 M/uL (4.20-5.40); White Blood Count 9.33 K/ul (4.8-10.8)
[2022-11-07] MEDS ORDERED: OPTIRAY 320 500ml IV ONE (12:02)
[2022-11-07] MEDS: SODIUM CHLORIDE 0.9% 1000ML 1,000 ML IV SCH ×2 (12:20→20:23)
[2022-11-07 12:25] LABS: Albumin Globulin Ratio 1.4 (0.9-2); Albumin Level 4.1 gm/dl (3.4-5.0); BUN Creatinine Ratio 40.7 (10-20); Bilirubin,Total 0.5 mg/dl (0.2-1.0); Calcium 9.7 mg/dl (8.5-10.1); Creatinine Clr Calc Pharmacy 29.1 ml/min; Est GFR (African American) 38.8 ml/min; Est GFR (Non-African American) 33.5 ml/min; Magnesium 2.2 mg/dl (1.7-2.4); Potassium 3.9 mmol/L (3.5-5.1); Total Protein 7.1 gm/dl (6.0-8.3)
--- NOTE | 2022-11-07 12:30 | CT Scan Report ---
CT OF THE HEAD WITHOUT CONTRAST CLINICAL HISTORY: neuro deficit, acute stroke suspected COMPARISON STUDY: Head CT and CTA of the head November 26, 2021. CT DOSE: 998.87 mGy.cm TECHNIQUE: Helical axial images of the head were obtained without IV contrast. Automated exposure con trol was utilized for the study. A dose lowering technique was utilized adhering to the principles o f ALARA. FINDINGS: No acute intracranial hemorrhage, midline shift or mass effect is present. Ventricular syst em is unremarkable. Basal cisterns are patent. There are no extra-axial collections. White matter hyp odensities are unchanged and favor small vessel disease. There are no findings to suggest acute dural sinus thrombosis or acute territorial infarct. Left maxillary sinus is nearly entirely opacified. Th is has developed since prior exam. There is mild mucosal thickening of the right maxillary sinus. Rig ht mastoid air cells are partially opacified. IMPRESSION: No acute intracranial findings. No change in appearance of the brain. ACT 112: Negative or not required by law. Electronically signed by: Otoniel Lemus M.D. 11/07/2022 12:29 PM
[2022-11-07 12:31] LABS: Troponin I High Sensitivity 17.4 pg/ml (0-14)
[2022-11-07 12:33] LABS: Prothrombin Time 11.1 Seconds (9.0-12.0)
--- NOTE | 2022-11-07 12:42 | CT Scan Report ---
HEAD & NECK CTA HISTORY: neuro deficit, acute stroke suspected TECHNIQUE: Multiaxial CT images of the head were performed following the intravenous administration o f contrast to evaluate the major cerebral vessels. Multiaxial CT images of the neck were also perform ed following the intravenous administration of contrast to evaluate the major cervical vessels. Maxim um intensity projection images were also obtained. A dose lowering technique was utilized adhering to the principles of ALARA. COMPARISON: Head and neck CTA 11/26/2021. FINDINGS: There is no mass, hematoma, midline shift, or acute infarct. Visualized intracranial internal carotid arteries, distal vertebral arteries, and basilar artery are widely patent. There is no significant s tenosis, occlusion, or aneurysm seen within the bilateral ACAs, MCAs, or hospitality team member. Stable 2 mm aneurysm w ithin the left supraclinoid ICA on image 114. 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 Paranasal sinus disease noted. The aortic arch and proximal great vessels are widely patent. There is no significant stenosis, occ lusion, or dissection identified within the bilateral common carotid, internal carotid, or vertebral arteries. Interstitial thickening within the lung apices. Posterior cervical spinal fusion hardware. IMPRESSION: 1. No significant stenosis or occlusion within the [place]. 2. No significant stenosis, occlusion, or dissection identified within the carotid or vertebral arter ies. 3. 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 ACT 112: Negative or not required by law. Electronically signed by: Jean-Claude Anderson M.D. 11/07/2022 12:41 PM
--- NOTE | 2022-11-07 12:42 | CT Scan Report ---
HEAD & NECK CTA HISTORY: neuro deficit, acute stroke suspected TECHNIQUE: Multiaxial CT images of the head were performed following the intravenous administration o f contrast to evaluate the major cerebral vessels. Multiaxial CT images of the neck were also perform ed following the intravenous administration of contrast to evaluate the major cervical vessels. Maxim um intensity projection images were also obtained. A dose lowering technique was utilized adhering to the principles of ALARA. COMPARISON: Head and neck CTA 11/26/2021. FINDINGS: There is no mass, hematoma, midline shift, or acute infarct. Visualized intracranial internal carotid arteries, distal vertebral arteries, and basilar artery are widely patent. There is no significant s tenosis, occlusion, or aneurysm seen within the bilateral ACAs, MCAs, or black leather buffer. Stable 2 mm aneurysm w ithin the left supraclinoid ICA on image 114. 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 Paranasal sinus disease noted. The aortic arch and proximal great vessels are widely patent. There is no significant stenosis, occ lusion, or dissection identified within the bilateral common carotid, internal carotid, or vertebral arteries. Interstitial thickening within the lung apices. Posterior cervical spinal fusion hardware. IMPRESSION: 1. No significant stenosis or occlusion within the [place]. 2. No significant stenosis, occlusion, or dissection identified within the carotid or vertebral arter ies. 3. 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 ACT 112: Negative or not required by law. Electronically signed by: Jean-Claude Anderson M.D. 11/07/2022 12:41 PM
--- NOTE | 2022-11-07 13:38 | XRay Report ---
XR chest 1V portable CLINICAL HISTORY: neuro deficit, acute stroke suspected COMPARISON STUDY: Chest CT January 04, 2022. Chest radiograph August 07, 2022. FINDINGS: Postoperative findings within the cervical spine are incidentally noted. There is a dual-le ad left subclavian pacer. No pneumothorax or pleural effusion is noted. Cardiomegaly is unchanged. Th ere is pulmonary vascular congestion with possible mild pulmonary edema is no consolidation to sugges t pneumonia. IMPRESSION: Suspected mild pulmonary edema. Cardiomegaly. ACT 112: Negative or not required by law. Electronically signed by: Otoniel Lemus M.D. 11/07/2022 1:36 PM
--- NOTE | 2022-11-07 16:24 | Magnetic Resonance Report ---
MRI OF THE BRAIN WITHOUT CONTRAST CLINICAL HISTORY: Stroke like symptoms. Difficulty speaking. Tongue numbness. COMPARISON STUDY: Head CT and CTA of the head performed earlier today. MRI of the brain March 19, 2013 . TECHNIQUE: Utilizing a 1.5 Zoila magnet and dedicated coil, multiplanar, multiecho imaging of the bra in was performed without IV contrast. FINDINGS: There are no foci of restricted diffusion to suggest acute infarct. No acute intracranial h emorrhage, midline shift or mass effect is present. Ventricular system is unremarkable. Basal cistern s are patent. There are no extra axial collections. Flow-voids for the major intracranial vessels are present. No intracranial mass is identified on this unenhanced exam. White matter T2 hyperintense fo ci suggest moderate small vessel disease. Calvarial signal is normal. Left maxillary sinus is opacifi ed. There is moderate mucosal thickening of the ethmoid and right maxillary sinuses. Right mastoid ai r cells are partially opacified. IMPRESSION: No acute intracranial findings. ACT 112: Negative or not required by law. Electronically signed by: Otoniel Lemus M.D. 11/07/2022 4:23 PM
[2022-11-07] MEDS ORDERED: FUROSEMIDE 40 MG/4 ML VIAL IV ONE (17:14)
[2022-11-07 17:16] LABS: Appearance Urine Clear (Clear); Bilirubin Urine Negative (Negative); Blood Urine Trace-intact (Negative); Color Urine Yellow; Glucose Urine UA Negative (Negative); Ketones Urine Negative (Negative); Leukocyte Esterase Urine 2+ (Negative); Nitrite Urine Negative (Negative); Protein Urine Negative (Negative); Urobilinogen Urine Negative (Negative); pH Urine 5.5 (4.5-7.5)
[2022-11-07 17:29] LABS: Bacteria Urine Negative (Negative); Epithelial Cell Urine >30 /lpf (0-5); RBC Urine 0-4 /hpf (0-4)
--- NOTE | 2022-11-07 18:01 | History & Physical Report ---
Date of Service November 07, 2022 Assessment & Plan (1) Stroke-like symptoms: Plan: Strokelike symptoms Possible TIA --MRI Brain:No acute intracranial findings. --Head/Neck CTA:No significant stenosis or occlusion within the [place]. No significant stenosis, occlusion, or dissection identified within the carotid or vertebral arteries. 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 --Head CT:No acute intracranial findings. No change in appearance of the brain. Stroke work up including lipid panel, A1C Recent ECHO: 10/21/22: Concentric LVH, EF 65%, right ventricle appears to be mildly dilated, right ventricular systolic function is mildly reduced, mild prolapse of anterior mitral valve, severe mitral regurgitation, severe tricuspid regurgitation, dilated IVC with reduced collapsibility, and severe pulmonary hypertension Speech and swallow eval Continue aspirin, Lipitor Neuro checks, Neurology consulted PT/OT, Speech Eval Fall precautions Acute on chronic diastolic heart failure CXR showed:Suspected mild pulmonary edema. Cardiomegaly. Last ECHO: As above BNP 1055 Clinically no overt signs of volume overload on exam Received IV Lasix in ED Continue torsemide Daily weight, I/Os, fluid restriction Monitor renal function/electrolytes Cardiology consulted Abnormal urinalysis Denies any urinary symptoms Urine culture pending Consider antibiotics if needed Generalized weakness Ambulatory dysfunction with balance issues Secondary to comorbidities PT OT Fall precautions Sick sinus syndrome S/P pacemaker H/O paroxysmal atrial fibrillation Continue sotalol Not on chronic anticoagulation DM Type II: HbA1C: 6.2 on 08/27/22 Diet controlled ISS per protocol while hospitalized Monitor BGs Recent Ear Infection Completed antibiotic course Follow-up with ENT as outpatient Other chronic conditions Pulmonary hypertension secondary hyperparathyroidism Asthma peripheral vascular disease Hypothyroidism Mnire's disease Obstructive sleep apnea on CPAP Iron deficiency anemia CKD stage III Past tobacco use Continue home medications DVT Px: Heparin SQ Code Status Full Code History of Present Illness Chief Complaint: Stroke like symptoms Primary Care Provider: Florentin Calvo DO Patient is an 82-year-old female with history of diabetes mellitus-diet controlled, paroxysmal atrial fibrillation, pulmonary hypertension, secondary hyperparathyroidism, peripheral vascular disease, chronic diastolic heart failure, hypothyroidism, Mnire's disease, obstructive sleep apnea on CPAP, iron deficiency anemia, CKD stage III, S/P pacemaker past tobacco use and other medical problems presents with history of strokelike symptoms. Patient has some hearing impairment and recent ear infection which worsened her hearing. Most of the history is obtained from patient as well as patient's daughter at bedside. Patient's daughter states that patient developed tongue tingling sensation at around 9:30 AM this morning which is associated with garbled speech. Tongue numbness lasted for about 30 minutes and garbled speech lasted for about 10 minutes as per family. Also states having generalized weakness which has been worse since 2 weeks duration. Currently while in ED, speech is back to baseline patient denies any focal weakness. Patient's daughter states that patient had prior TIAs. She was recently diagnosed to have a right ear infection and was evaluated by ENT, and completed 10-day course of doxycycline and eardrops. As per the family, hearing will gradually improve over 6 to 8 weeks duration. Patient states having chronic dyspnea on exertion, and has balance issues intermittently. She was referred by her wire coiler for heart valve evaluation as per patient. She had pacemaker placement in July by Dr. Hewitt. She is scheduled for sleep study on November 19. Denies any history of chest pain, dyspea at rest, palpitations, orthopnea, dizziness, cough, wheezing, fever, fall, head trauma, syncope, headache, change in vision, double/blurry vision, facial deformity, bowel/bladder incontinence, nausea, vomiting, abdominal pain, diarrhea, dysuria, hematuria. Allergies Allergy/AdvReac Type Severity Reaction Status Date / Time Sulfa (Sulfonamide Allergy Severe Severe Verified 11/07/22 14:24 Antibiotics) rxn: rash and hives celecoxib Allergy Intermediate Rash/Hives/ Verified 11/07/22 14:24 Itching. cephalexin Allergy Intermediate Rash/Hives/ Verified 11/07/22 14:24 Itching. furosemide Allergy Intermediate Rash/Hives/ Verified 11/07/22 14:24 Itching. gabapentin Allergy Intermediate Rash/Hives/ Verified 11/07/22 14:24 Itching. pregabalin Allergy Intermediate Rash/Hives/ Verified 11/07/22 14:24 Itching. meclizine Allergy Unknown Unknown Verified 11/07/22 14:24 methylprednisolone Allergy Unknown Rash/Hives/ Verified 11/07/22 14:24 Itching. Penicillins Allergy Unknown Unknown. Verified 11/07/22 14:24 prednisone Allergy Unknown Rash/Hives/ Verified 11/07/22 14:24 Itching. vancomycin Allergy Unknown Jodi Verified 11/07/22 14:24 syn. . nickel Allergy Unknown Verified 11/07/22 14:24 dexamethasone AdvReac Intermediate Steroid Verified 11/07/22 14:24 psychosis. Home Medications Medication Instructions Recorded Confirmed Type alprazolam 0.5 mg tablet 0.25 mg PO HS 04/08/19 11/07/22 History lansoprazole 15 mg capsule,delayed 15 mg PO QAM 04/08/19 11/07/22 History release montelukast 10 mg tablet 10 mg PO PM 04/08/19 11/07/22 History ferrous sulfate 325 mg (65 mg 325 mg PO DAILY 06/03/20 11/07/22 History iron) tablet allopurinol 100 mg tablet 200 mg PO HS 11/26/21 11/07/22 History atorvastatin 20 mg tablet 20 mg PO QAM 11/26/21 11/07/22 History cholecalciferol (vitamin D3) 50 100 mcg PO QAM 11/26/21 11/07/22 History mcg (2,000 unit) capsule (Vitamin D3) aspirin 81 mg tablet,delayed 81 mg PO HS 01/04/22 11/07/22 History release levalbuterol tartrate 45 1 puff inhalation Q4 PRN Shortness 08/07/22 11/07/22 History mcg/actuation aerosol inhaler Of Breath (Xopenex HFA) sertraline 100 mg tablet 100 mg PO DAILY 08/07/22 11/07/22 History sotalol 80 mg tablet 40 mg PO AMPM 08/07/22 11/07/22 History cyanocobalamin (vitamin B-12) 100 100 mcg PO DAILY 11/07/22 11/07/22 History mcg tablet (Vitamin B-12) folic acid 1 mg tablet 1 mg PO DAILY 11/07/22 11/07/22 History levothyroxine 150 mcg tablet 150 mcg PO QAM 11/07/22 11/07/22 History tiotropium 2.5 mcg-olodaterol 2.5 2 puff inhalation QAM 11/07/22 11/07/22 History mcg/actuation mist for inhalation (Stiolto Respimat) torsemide 10 mg tablet 10 mg PO BID 11/07/22 11/07/22 History Past Med/Surg History Medical History TIFFANY (acute kidney injury) Asthma, moderate persistent Atrial fibrillation and flutter Atrial fibrillation with RVR Atrial flutter Carotid artery aneurysm Chest pain at rest Cholecystitis Cholelithiasis CKD (chronic kidney disease), stage III Dehydration Depression DM type 2 (diabetes mellitus, type 2) Elevated brain natriuretic peptide (BNP) level Encounter for pre-operative examination History of tobacco abuse HTN (hypertension) Hypotension Hypothyroidism Leukocytosis Meniere disease Nausea Near syncope Near syncope RADHA (obstructive sleep apnea) Osteoarthritis of right knee Pneumonia Prolonged QT interval Pulmonary emphysema Surgical History H/O sinus surgery History of cholecystectomy History of hysterectomy History of laminectomy History of repair of left rotator cuff Hx of neck surgery Family History Father Diabetes Social History Smoking Status: Former smoker Tobacco Type: Cigarettes packs per day: 1.5; Cigarettes Per Day: 30; Second Hand Exposure: No; Hx Alcohol Use: No Hx Substance Use: No Preferred Language: [place] Communication Ability: Effective [place] Joiner Required: No Beliefs That Will Affect Care: None marital status: Current Living Situation: Spouse Feels Safe at Home: Yes Assistive Devices: Cane and Walker Review of Systems Review of Systems: All systems reviewed & are unremarkable except as noted in Subjective Physical Exam Physical Exam: Physical Exam: Vitals signs as noted above General Appearance:Moderately built and nourished, no apparent distress, Elderly Head: normocephalic, Atraumatic Eyes: normal inspection, EOMI Neck: supple, Trachea midline Respiratory/Chest: Normal breath sounds, +basal crackles, No accessory muscle use Cardiovascular: S1, S2, + murmur Abdomen/GI:Soft, Non tender, Bowel sounds present Extremities/Musculoskeletal:normal inspection, no edema Neurologic/Psych:AAOX3, grossly no focal neurological deficits, +Hearing impairment Skin: normal color, warm Results & Data Results & Data Vital Signs (Past 12 Hours) Vital Signs Temp Pulse Pulse Pulse Resp Resp BP 11/07/22 17:34 62 11/07/22 17:06 69 24 11/07/22 16:54 67 20 11/07/22 16:30 65 126/68 11/07/22 16:00 138/65 11/07/22 15:51 65 123/70 11/07/22 14:00 63 21 124/60 11/07/22 13:30 64 20 122/52 L 11/07/22 13:09 63 19 114/60 11/07/22 12:30 62 13 115/58 L 11/07/22 12:20 61 14 108/60 11/07/22 12:06 72 11/07/22 11:30 62 20 11/07/22 11:19 36.1 C L 75 20 128/58 L BP Pulse Ox Pulse Ox O2 Del Method 11/07/22 17:34 11/07/22 17:06 94 Room Air 11/07/22 16:54 95 Room Air 11/07/22 16:30 95 Room Air 11/07/22 16:00 98 11/07/22 15:51 90 Room Air 11/07/22 14:00 92 Room Air 11/07/22 13:30 93 Room Air 11/07/22 13:09 94 Room Air 11/07/22 12:30 91 Room Air 11/07/22 12:20 96 Room Air 11/07/22 12:06 11/07/22 11:30 121/69 93 Room Air 11/07/22 11:19 96 Room Air Laboratory Results Short CBC 11/07/22 Range/Units 11:30 WBC 9.33 (4.8-10.8) K/ul Hgb 11.0 L (12.0-16.0) g/dl Hct 33.5 L (37.0-47.0) % Plt Count 224 (130-400) K/uL BMP 11/07/22 11:30 Sodium 138 Potassium 3.9 Chloride 103 Carbon Dioxide 25 BUN 59 H Creatinine 1.45 H Glucose 128 H Calcium 9.7 Liver Function 11/07/22 Range/Units 11:30 Total Bilirubin 0.5 (0.2-1.0) mg/dl AST 47 H (13-39) U/L ALT 22 (7-52) U/L Alkaline Phosphatase 175 H (34-104) U/L Albumin 4.1 (3.4-5.0) gm/dl Urine 11/07/22 Range/Units 17:01 Urine Color Yellow Urine Appearance Clear (Clear) Urine pH 5.5 (4.5-7.5) Ur Specific [place] 1.010 (1.000-1.030) Urine Protein Negative (Negative) Urine Glucose (UA) Negative (Negative) Diagnostic Findings --MRI Brain:No acute intracranial findings. --Head/Neck CTA:No significant stenosis or occlusion within the [place]. No significant stenosis, occlusion, or dissection identified within the carotid or vertebral arteries. 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 --Head CT:No acute intracranial findings. No change in appearance of the brain. --CXR:Suspected mild pulmonary edema. Cardiomegaly. ECG Additional Comments: EKG: Atrial sensed ventricular paced rhythm, poor quality, QTc 500
[2022-11-07] MEDS ORDERED: CARBOHYDRATES FOR HYPOGLYCEMIA PO PRN (20:21)
[2022-11-07] MEDS ORDERED: GLUCOSE 10 TAB/TUBE PO PRN (20:21)
[2022-11-07] MEDS ORDERED: ACETAMINOPHEN 325 MG TAB PO PRN (20:21)
[2022-11-07] MEDS ORDERED: ONDANSETRON INJ 2 MG/ML 2 ML VIAL IV PRN (20:21)
[2022-11-07] MEDS ORDERED: GLUCOSE 40% GEL 15 GM TUBE PO PRN (20:21)
[2022-11-07] MEDS ORDERED: GLUCAGON FOR INJ 1 MG VIAL SQ PRN (20:21)
[2022-11-07] MEDS ORDERED: POLYETHYLENE (MIRALAX) 17 GM PACK PO PRN (20:21)
[2022-11-07] MEDS ORDERED: LEVALBUTEROL TARTRATE 15 GM HFA.AER.AD INH PRN (20:21)
[2022-11-07] MEDS ORDERED: DEXTROSE 50% 50 ML SYRINGE IV PRN (20:21)
[2022-11-07] MEDS ORDERED: TORSEMIDE 10 MG TAB PO SCH (21:00)
[2022-11-07] MEDS: ASPIRIN 81 MG ECTAB PO SCH (21:34)
[2022-11-07] MEDS: allopurinoL 100 MG TAB PO SCH (21:34)
[2022-11-07] MEDS: ALPRAZolam 0.25 MG TABLET PO SCH (21:34)
[2022-11-07] MEDS: MONTELUKAST SODIUM 10 MG TABLET PO SCH (21:35)
[2022-11-07] MEDS: HEPARIN SOD 5,000 UNIT/0.5 ML VIAL SQ SCH (21:35)
[2022-11-07] MEDS: SOTALOL HCL 80 MG TAB PO SCH (21:35)
[2022-11-07] MEDS: INSULIN ASPART PER UNIT CHARGE SC SCH (21:41)
[2022-11-08] MEDS: LEVOTHYROXINE SODIUM 150 MCG TABLET PO SCH (06:22)
[2022-11-08 06:34] LABS: Hematocrit (blood only) 35.1 % (37.0-47.0); Hemoglobin 11.5 g/dl (12.0-16.0); Mean Corpuscular Hemoglobin 28.7 pg (25.0-34.0); Mean Corpuscular Hgb Conc 32.8 g/dL (32.0-36.0); Mean Corpuscular Volume 87.5 fL (80.0-100.0); Platelet Count 225 K/uL (130-400); RDW Coefficient of Variation 17.2 % (11.5-14.5); Red Blood Count 4.01 M/uL (4.20-5.40); White Blood Count 7.57 K/ul (4.8-10.8)
[2022-11-08 06:53] LABS: Albumin Globulin Ratio 1.1 (0.9-2); Albumin Level 3.9 gm/dl (3.4-5.0); BUN Creatinine Ratio 35.8 (10-20); Bilirubin,Total 0.6 mg/dl (0.2-1.0); Calcium 10.1 mg/dl (8.5-10.1); Chol HDL Ratio 2.4 (0-5); Creatinine Clr Calc Pharmacy 30.8 ml/min; Est GFR (African American) 41.5 ml/min; Est GFR (Non-African American) 35.8 ml/min; Globulin 3.4 gm/dl (2.5-4.0); Magnesium 2.2 mg/dl (1.7-2.4); Potassium 3.9 mmol/L (3.5-5.1); Total Protein 7.3 gm/dl (6.0-8.3)
[2022-11-08 06:59] LABS: Thyroid Stimulating Hormone 0.123 uIu/ml (0.300-4.500)
[2022-11-08 07:34] LABS: T4 Free Thyroxine 1.64 ng/dl (0.61-1.60)
[2022-11-08 08:07] LABS: Estimated Average Glucose 151 mg/dl; Hemoglobin A1C 6.9 % (4.5-5.6)
[2022-11-08] MEDS: INSULIN ASPART PER UNIT CHARGE SC SCH ×4 (08:36→21:00)
[2022-11-08] MEDS: CYANOCOBALAMIN (B-12) 100 MCG TABLET PO SCH (08:55)
[2022-11-08] MEDS: ATORVASTATIN 20 MG TAB PO SCH (08:55)
[2022-11-08] MEDS: CHOLECALCIFEROL 1,000 UNITS 25 MCG TAB PO SCH (08:55)
[2022-11-08] MEDS: ERTAPENEM SODIUM 500 MG in SYRINGE 0 ML IV SCH (08:55)
[2022-11-08] MEDS: FOLIC ACID 1 MG TAB PO SCH (08:55)
[2022-11-08] MEDS: SERTRALINE HCL 100 MG TABLET PO SCH (08:55)
[2022-11-08] MEDS: FERROUS SULFATE 325 MG TAB PO SCH (08:55)
[2022-11-08] MEDS: SOTALOL HCL 80 MG TAB PO SCH ×2 (08:56→20:30)
[2022-11-08] MEDS: HEPARIN SOD 5,000 UNIT/0.5 ML VIAL SQ SCH (08:56)
[2022-11-08] MEDS: PANTOprazole 40 MG TAB PO SCH (08:56)
[2022-11-08] MEDS: TORSEMIDE 10 MG TAB PO SCH ×2 (08:56→14:05)
[2022-11-08] MEDS: UMECLIDINIUM/VILANTEROL 62.5/25MCG 7 PUFFS/INHALER INH SCH (08:57)
[2022-11-08] MEDS ORDERED: LANSOPRAZOLE 15 MG SOLTAB PO SCH (09:00)
--- NOTE | 2022-11-08 09:39 | Neurology Consultation ---
Date of Consultation November 08, 2022 Assessment & Plan (1) TIA (transient ischemic attack): Plan 82-year-old female with a history of atrial fibrillation and flutter, unable to tolerate anticoagulants due to history of blood loss, anemia, presenting with TIA characterized by intermittent speech difficulty, dysarthria, and tongue numbness, currently resolved. No evidence of acute or subacute infarct on MRI. Does have moderately extensive chronic small vessel ischemic disease throughout the cerebral hemispheres and avery. 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 Given this patient's history of atrial fib, flutter and recurrent TIA, she should probably be anticoagulated. However, I understand she had been on Eliquis previously, this medication was discontinued due to blood loss, anemia. Looks like she had an EGD and colonoscopy this past February. Her current hemoglobin and hematocrit are perhaps only marginally reduced. It may not be unreasonable to reconsider restarting Eliquis in this patient. However, I would defer to the medical team, may need to consider obtaining an up-to-date GI evaluation in this regard. If it is felt that this patient cannot be safely restarted on Eliquis, would then recommend dual antiplatelet therapy consisting of clopidogrel 75 mg/day and aspirin 81 mg today for 3 weeks, followed by transition to monotherapy with c lopidogrel only, 75 mg/day. She will of course need continued monitoring for excessive bleeding, blood loss. Patient should continue with atorvastatin at the current dosage. Her lipids appear to be well managed, LDL less than 70, currently 42. Current blood pressure appropriate, may continue with sotalol as ordered. Consultations with PT/OT/speech therapy. No further immediate recommendations. History of Present Illness Reason for Consultation: TIA Requesting Physician: Ace Duarte MD Attending Physician: Zahida Gomez MD History of Present Illness The patient is an 82-year-old female who presented to the emergency department yesterday for intermittent speech difficulty and tongue numbness, dysarthria occurring over the past few days. Her symptoms resolved by the time she was evaluated in the emergency department. Patient does have a history of TIA, atrial fibrillation, unable to tolerate anticoagulation due to blood loss, anemia, does have a pacemaker. Patient had an intact neurological examination during her assessment in the emergency department. She has been normotensive and afebrile. 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 A follow-up brain MRI was negative for acute or subacute stroke. There is evidence of moderate small vessel ischemic disease. I did review these images. An ECG has revealed an AV dual paced rhythm. The patient denies any symptomatic recurrence of speech difficulty or numbness of the tongue since her [facility] to the [facility]. She has been ambulating freely with a walker. Allergies Allergy/AdvReac Type Severity Reaction Status Date / Time Sulfa (Sulfonamide Allergy Severe Severe Verified 11/07/22 14:24 Antibiotics) rxn: rash and hives celecoxib Allergy Intermediate Rash/Hives/ Verified 11/07/22 14:24 Itching. cephalexin Allergy Intermediate Rash/Hives/ Verified 11/07/22 14:24 Itching. furosemide Allergy Intermediate Rash/Hives/ Verified 11/07/22 14:24 Itching. gabapentin Allergy Intermediate Rash/Hives/ Verified 11/07/22 14:24 Itching. pregabalin Allergy Intermediate Rash/Hives/ Verified 11/07/22 14:24 Itching. meclizine Allergy Unknown Unknown Verified 11/07/22 14:24 methylprednisolone Allergy Unknown Rash/Hives/ Verified 11/07/22 14:24 Itching. Penicillins Allergy Unknown Unknown. Verified 11/07/22 14:24 prednisone Allergy Unknown Rash/Hives/ Verified 11/07/22 14:24 Itching. vancomycin Allergy Unknown Jodi Verified 11/07/22 14:24 syn. . nickel Allergy Unknown Verified 11/07/22 14:24 dexamethasone AdvReac Intermediate Steroid Verified 11/07/22 14:24 psychosis. Home Medications Medication Instructions Recorded Confirmed Type alprazolam 0.5 mg tablet 0.25 mg PO HS 04/08/19 11/07/22 History lansoprazole 15 mg capsule,delayed 15 mg PO QAM 04/08/19 11/07/22 History release montelukast 10 mg tablet 10 mg PO PM 04/08/19 11/07/22 History ferrous sulfate 325 mg (65 mg 325 mg PO DAILY 06/03/20 11/07/22 History iron) tablet allopurinol 100 mg tablet 200 mg PO HS 11/26/21 11/07/22 History atorvastatin 20 mg tablet 20 mg PO QAM 11/26/21 11/07/22 History cholecalciferol (vitamin D3) 50 100 mcg PO QAM 11/26/21 11/07/22 History mcg (2,000 unit) capsule (Vitamin D3) aspirin 81 mg tablet,delayed 81 mg PO HS 01/04/22 11/07/22 History release levalbuterol tartrate 45 1 puff inhalation Q4 PRN Shortness 08/07/22 11/07/22 History mcg/actuation aerosol inhaler Of Breath (Xopenex HFA) sertraline 100 mg tablet 100 mg PO DAILY 08/07/22 11/07/22 History sotalol 80 mg tablet 40 mg PO AMPM 08/07/22 11/07/22 History cyanocobalamin (vitamin B-12) 100 100 mcg PO DAILY 11/07/22 11/07/22 History mcg tablet (Vitamin B-12) folic acid 1 mg tablet 1 mg PO DAILY 11/07/22 11/07/22 History levothyroxine 150 mcg tablet 150 mcg PO QAM 11/07/22 11/07/22 History tiotropium 2.5 mcg-olodaterol 2.5 2 puff inhalation QAM 11/07/22 11/07/22 History mcg/actuation mist for inhalation (Stiolto Respimat) torsemide 10 mg tablet 10 mg PO BID 11/07/22 11/07/22 History Patient History Medical History TIFFANY (acute kidney injury) Asthma, moderate persistent Atrial fibrillation and flutter Atrial fibrillation with RVR Atrial flutter Carotid artery aneurysm Chest pain at rest Cholecystitis Cholelithiasis CKD (chronic kidney disease), stage III Dehydration Depression DM type 2 (diabetes mellitus, type 2) Elevated brain natriuretic peptide (BNP) level Encounter for pre-operative examination History of tobacco abuse HTN (hypertension) Hypotension Hypothyroidism Leukocytosis Meniere disease Nausea Near syncope Near syncope RADHA (obstructive sleep apnea) Osteoarthritis of right knee Pneumonia Prolonged QT interval Pulmonary emphysema Surgical History H/O sinus surgery History of cholecystectomy History of hysterectomy History of laminectomy History of repair of left rotator cuff Hx of neck surgery Family History Father Diabetes Social History Smoking Status: Never smoker Tobacco Type: Cigarettes packs per day: 1.5; Cigarettes Per Day: 30; Second Hand Exposure: No; Hx Alcohol Use: No Hx Substance Use: No Preferred Language: Serbian Communication Ability: Effective 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 Analyst Required: No Beliefs That Will Affect Care: None marital status: Current Living Situation: Spouse Other Information That Helps Us Care for You: No Feels Safe at Home: Yes Safety Concerns: Feels Safe At This Time Assistive Devices: Cane, Hearing Aid - Right and Walker Review of Systems Constitutional: no fever and no chills Eyes: no blind spots and no diplopia Ear, Nose, Mouth, Throat: + hearing loss Respiratory: no cough and no dyspnea Cardiovascular: no chest pain and no palpitations Gastrointestinal: no nausea and no vomiting Genitourinary: no dysuria Musculoskeletal: no myalgia Integumentary: no rash and no lesions Neurologic: as per Subjective / HPI Psychiatric: no depression and no anxiety Hematologic / Lymphatic: no easy bleeding and no easy bruising Exam (Neuro) Constitutional: well developed and well nourished; no acute distress Eyes: normal visual carlin by confrontation, PERRL, normal accommodation and EOM intact bilaterally; no fundoscopic abnormality, no nystagmus and no papilledema Cardiovascular: Vessels: normal carotid upstroke; no carotid bruit Neurologic: Oriented to:: Person, Place and Time Memory: Short Term Intact and Remote Intact Attention: Span Intact and Concentration Intact Language: Naming Objects and Repeating Phrases Speech Fluency: negative Dysarthria Speech Aphasia: negative Aphasia Fund of Knowledge: Current Events, Past History and Vocabulary Cranial Nerves: Normal II (Visual carlin full to confrontation, visual acuity normal), III, IV, (Pupils equal round reactive to light and accommodation, eye movements normal), V (Facial sensation intact), VII (There is no facial droop or weakness), IX, X (Palate elevates to midline), XI (Shoulder shrug intact) and XII (Tongue protrudes to midline); Abnorm VIII (Hearing diminished) Motor Strength: Normal Lower Extremities and Normal Upper Extremities; negative Pronator Drift Motor Tone: Normal Lower Extremities and Normal Upper Extremities Muscle Bulk/Involuntary Movements: No Involuntary Movements; negative Muscle Atrophy Sensation: Light Touch Intact, Pain/Temperature Intact, Vibration Intact and Proprioception Intact Coordination: Normal; negative Limited Balance, Dysdiadochokinesia, Finger-Nose Abnormal or Heel-Vasquez Abnormal Deep Tendon Reflexes: Rt Triceps: 2+, Lt Triceps: 2+, Rt Biceps: 2+, Lt Biceps: 2+, Rt Brachioradialis: 2+, Lt Brachioradialis: 2+, Rt Patellar: 2+, Lt Patellar: 2+, Rt Ankle: 2+ and Lt Ankle: 2+ Special Tests: negative Babinski Present Details: Ambulates with walker, posture flexed Results & Data Vital Signs (Past 12 Hours) Vital Signs Temp Pulse Pulse Resp BP Pulse Ox O2 Del Method 11/08/22 07:23 36.6 C 60 18 118/68 93 CPAP 11/08/22 04:03 36.6 C 60 18 122/67 95 CPAP 11/08/22 02:30 71 18 92 11/07/22 23:37 36.6 C 71 18 130/66 94 CPAP 11/07/22 22:55 95 H 11/07/22 22:40 50 L 18 96 11/07/22 21:24 Room Air FiO2 11/08/22 07:23 11/08/22 04:03 11/08/22 02:30 11/07/22 23:37 11/07/22 22:55 11/07/22 22:40 21 11/07/22 21:24 Laboratory Results WBC 7.57, hemoglobin 11.5, hematocrit 35.1, platelet count 225, sodium 140, potassium 3.9, BUN 49, creatinine 1.37, glucose 110, hemoglobin A1c 6.9, magnesium 2.2, AST 50, ALT 25, triglycerides 126, cholesterol 115, LDL 42, VLDL 25, HDL 48, TSH 0.123, free T41.[address] of the head, CTA of the head and neck, and brain MRI are as described in the history of present illness. I independently reviewed these images. Electrocardiogram revealed an AV dual paced rhythm, 62 bpm. PG Care Time/CCT Total # of Minutes Spent Total Time Spent with Patient: Total time spent is greater than 50% in coordination of care (as documented) at patient's floor/unit and/or counseling patient: 60 minutes Coding Level of Care Code 73042 INT INP/OBS CARE 2/55MIN Diagnoses TIA (transient ischemic attack) G45.9
--- NOTE | 2022-11-08 10:51 | Cardiology Consultation ---
Date of Consultation November 08, 2022 Assessment & Plan (1) TIA (transient ischemic attack): (2) Paroxysmal atrial fibrillation: (3) Acute on chronic diastolic heart failure: (4) Severe mitral insufficiency: Plan Patient is a complex 82-year-old female with known history of paroxysmal atrial fibrillation on antiarrhythmic therapy with sotalol, sick sinus syndrome status post pacemaker, diastolic heart failure secondary to valvular heart disease She presents now with acute decline with possible TIA symptoms now resolved Patient at risk for recurrent CVA given paroxysmal atrial fibrillation X-ray consistent with mild congestive heart failure Recent history of infection with possible urinary tract infection currently Recommendations: Additional dose of furosemide this morning continuing oral dose of torsemide Discussed TIA and risks with patient and daughter. Would recommend resuming apixaban at reduced dose given age and reduced EGFR at 2.5 mg twice per day. We will discontinue subcu heparin Optimize thyroid function electrolyte. We will review recent echocardiogram regarding severe mitral tricuspid insufficiency Cardiology will continue to follow History of Present Illness Reason for Consultation: Possible TIA, congestive heart failure Requesting Physician: Dr. Gomez Attending Physician: Zahida Gomez MD History of Present Illness Patient is a complex 82-year-old female whose cardiac and medical issues include 1. Sick sinus syndrome with recurrent syncope S/P LINQ, now S/P dual lead pacemaker implant in Jul 2022. [employer] Thu XT DR MRI 2. Paroxysmal atrial fibrillation on sotalol. Atrial fibrillation burden 0.2% last device interrogation 09/27/2022 3. Diastolic heart failure with preserved ejection fraction with moderate/severe MR and severe TR 4. Severe pulm hypertension mixed etiology including left heart source 5. History of asthma 6. HTN 7. DM 8. Chronic anemia receiving iron infusion Patient presents now referred for multiple issues. Case discussed with patient and history obtained with patient as well as from patient's daughter Kathy by phone. She presented to the ER due to difficulties with speech numbness and thickness in her tongue yesterday morning. Symptoms have since resolved. On evaluation chest x-ray consistent with moderate volume overload and edema. Patient received 1 dose of IV furosemide in ER. Currently appears comfortable. Notes presenting symptoms have improved. No chest pains or worsening shortness of breath. Was treated with antibiotics for ear infection 10/26/2022 now off antibiotic therapy. No current fevers or chills but did have rigors with acute illness Appetite and weight have been generally stable. Slight increase in lower extremity edema though no profound finding No sense of tachypalpitations no dizziness or lightheadedness. No productive cough No overt source of bleeding discerned Allergies Allergy/AdvReac Type Severity Reaction Status Date / Time Sulfa (Sulfonamide Allergy Severe Severe Verified 11/07/22 14:24 Antibiotics) rxn: rash and hives celecoxib Allergy Intermediate Rash/Hives/ Verified 11/07/22 14:24 Itching. cephalexin Allergy Intermediate Rash/Hives/ Verified 11/07/22 14:24 Itching. furosemide Allergy Intermediate Rash/Hives/ Verified 11/07/22 14:24 Itching. gabapentin Allergy Intermediate Rash/Hives/ Verified 11/07/22 14:24 Itching. pregabalin Allergy Intermediate Rash/Hives/ Verified 11/07/22 14:24 Itching. meclizine Allergy Unknown Unknown Verified 11/07/22 14:24 methylprednisolone Allergy Unknown Rash/Hives/ Verified 11/07/22 14:24 Itching. Penicillins Allergy Unknown Unknown. Verified 11/07/22 14:24 prednisone Allergy Unknown Rash/Hives/ Verified 11/07/22 14:24 Itching. vancomycin Allergy Unknown Jodi Verified 11/07/22 14:24 syn. . nickel Allergy Unknown Verified 11/07/22 14:24 dexamethasone AdvReac Intermediate Steroid Verified 11/07/22 14:24 psychosis. Home Medications Medication Instructions Recorded Confirmed Type alprazolam 0.5 mg tablet 0.25 mg PO HS 04/08/19 11/07/22 History lansoprazole 15 mg capsule,delayed 15 mg PO QAM 04/08/19 11/07/22 History release montelukast 10 mg tablet 10 mg PO PM 04/08/19 11/07/22 History ferrous sulfate 325 mg (65 mg 325 mg PO DAILY 06/03/20 11/07/22 History iron) tablet allopurinol 100 mg tablet 200 mg PO HS 11/26/21 11/07/22 History atorvastatin 20 mg tablet 20 mg PO QAM 11/26/21 11/07/22 History cholecalciferol (vitamin D3) 50 100 mcg PO QAM 11/26/21 11/07/22 History mcg (2,000 unit) capsule (Vitamin D3) aspirin 81 mg tablet,delayed 81 mg PO HS 01/04/22 11/07/22 History release levalbuterol tartrate 45 1 puff inhalation Q4 PRN Shortness 08/07/22 11/07/22 History mcg/actuation aerosol inhaler Of Breath (Xopenex HFA) sertraline 100 mg tablet 100 mg PO DAILY 08/07/22 11/07/22 History sotalol 80 mg tablet 40 mg PO AMPM 08/07/22 11/07/22 History cyanocobalamin (vitamin B-12) 100 100 mcg PO DAILY 11/07/22 11/07/22 History mcg tablet (Vitamin B-12) folic acid 1 mg tablet 1 mg PO DAILY 11/07/22 11/07/22 History levothyroxine 150 mcg tablet 150 mcg PO QAM 11/07/22 11/07/22 History tiotropium 2.5 mcg-olodaterol 2.5 2 puff inhalation QAM 11/07/22 11/07/22 History mcg/actuation mist for inhalation (Stiolto Respimat) torsemide 10 mg tablet 10 mg PO BID 11/07/22 11/07/22 History Patient History Medical History TIFFANY (acute kidney injury) Asthma, moderate persistent Atrial fibrillation and flutter Atrial fibrillation with RVR Atrial flutter Carotid artery aneurysm Chest pain at rest Cholecystitis Cholelithiasis CKD (chronic kidney disease), stage III Dehydration Depression DM type 2 (diabetes mellitus, type 2) Elevated brain natriuretic peptide (BNP) level Encounter for pre-operative examination History of tobacco abuse HTN (hypertension) Hypotension Hypothyroidism Leukocytosis Meniere disease Nausea Near syncope Near syncope RADHA (obstructive sleep apnea) Osteoarthritis of right knee Pneumonia Prolonged QT interval Pulmonary emphysema Surgical History H/O sinus surgery History of cholecystectomy History of hysterectomy History of laminectomy History of repair of left rotator cuff Hx of neck surgery Family History Father Diabetes Social History Smoking Status: Never smoker Tobacco Type: Cigarettes packs per day: 1.5; Cigarettes Per Day: 30; Second Hand Exposure: No; Hx Alcohol Use: No Hx Substance Use: No Preferred Language: Cuban Communication Ability: Effective Arrt Technologist Required: No Beliefs That Will Affect Care: None marital status: Current Living Situation: Spouse Other Information That Helps Us Care for You: No Feels Safe at Home: Yes Safety Concerns: Feels Safe At This Time Assistive Devices: Cane, Hearing Aid - Right and Walker Review of Systems Review of Systems: All systems reviewed & are unremarkable except as noted in HPI & below Results & Data Vital Signs (Past 12 Hours) Vital Signs Temp Pulse Pulse Resp BP Pulse Ox O2 Del Method 11/08/22 07:23 36.6 C 60 18 118/68 93 CPAP 11/08/22 04:03 36.6 C 60 18 122/67 95 CPAP 11/08/22 02:30 71 18 92 11/07/22 23:37 36.6 C 71 18 130/66 94 CPAP 11/07/22 22:55 95 H Laboratory Results Laboratory Results - last 24 hr 11/07/22 11/07/22 11/07/22 11:30 11:30 11:30 WBC 9.33 RBC 3.87 L Hgb 11.0 L POC Hgb Hct 33.5 L POC Hct MCV 86.6 MCH 28.4 MCHC 32.8 RDW Std Deviation 54.6 H RDW Coeff of [place] 17.3 H Plt Count 224 MPV 10.9 Immature Gran % (Auto) 0.4 Neut % (Auto) 67.9 Lymph % (Auto) 15.3 [place] % (Auto) 10.2 Eos % (Auto) 5.4 Baso % (Auto) 0.8 Neut # (Auto) 6.34 Lymph # (Auto) 1.43 [place] # (Auto) 0.95 H Eos # (Auto) 0.50 Baso # (Auto) 0.07 Immature Gran # (Auto) 0.04 PT 11.1 INR 1.0 APTT 27.0 PTT Ratio 1.0 POC Sodium Sodium 138 POC Potassium Potassium 3.9 POC Chloride Chloride 103 Carbon Dioxide 25 POC Total CO2 Anion Gap 10 POC Anion Gap POC BUN BUN 59 H Creatinine 1.45 H POC Creatinine Est Cr Clr Drug Dosing 29.1 Est GFR ( Amer) 38.8 Est GFR (Non-Af Amer) 33.5 BUN/Creatinine Ratio 40.7 H Glucose 128 H POC Glucose POC Glucose (other) Estimat Average Glucose Hemoglobin A1c Calcium 9.7 POC Ioniz Calcium [place] Magnesium 2.2 Total Bilirubin 0.5 AST 47 H ALT 22 Alkaline Phosphatase 175 H Troponin I High Sens 17.4 H B-Natriuretic Peptide Total Protein 7.1 Albumin 4.1 Globulin 3.0 Albumin/Globulin Ratio 1.4 Triglycerides Cholesterol LDL Cholesterol, Calc VLDL Cholesterol, Calc HDL Cholesterol Cholesterol/HDL Ratio TSH Free T4 Urine Color Urine Appearance Urine pH Ur Specific [place] Urine Protein Urine Glucose (UA) Urine Ketones Urine Blood Urine Nitrite Urine Bilirubin Urine Urobilinogen Ur Leukocyte Esterase Urine RBC Urine WBC Ur Epithelial Cells Urine Bacteria SARS-CoV-2, RNA, NAAT 11/07/22 11/07/22 11/07/22 11:36 12:43 13:06 WBC RBC Hgb POC Hgb 12.2 Hct POC Hct 36 L MCV MCH MCHC RDW Std Deviation RDW Coeff of [place] Plt Count MPV Immature Gran % (Auto) Neut % (Auto) Lymph % (Auto) [place] % (Auto) Eos % (Auto) Baso % (Auto) Neut # (Auto) Lymph # (Auto) [place] # (Auto) Eos # (Auto) Baso # (Auto) Immature Gran # (Auto) PT INR APTT PTT Ratio POC Sodium 138 Sodium POC Potassium 3.8 Potassium POC Chloride 102 Chloride Carbon Dioxide POC Total CO2 24 Anion Gap POC Anion Gap 17.0 POC BUN 52 H BUN Creatinine POC Creatinine 1.6 H Est Cr Clr Drug Dosing Est GFR ( Amer) Est GFR (Non-Af Amer) BUN/Creatinine Ratio Glucose POC Glucose 120 H POC Glucose (other) 127 H Estimat Average Glucose Hemoglobin A1c Calcium POC Ioniz Calcium [place] 1.25 Magnesium Total Bilirubin AST ALT Alkaline Phosphatase Troponin I High Sens B-Natriuretic Peptide 1055 H Total Protein Albumin Globulin Albumin/Globulin Ratio Triglycerides Cholesterol LDL Cholesterol, Calc VLDL Cholesterol, Calc HDL Cholesterol Cholesterol/HDL Ratio TSH Free T4 Urine Color Urine Appearance Urine pH Ur Specific [place] Urine Protein Urine Glucose (UA) Urine Ketones Urine Blood Urine Nitrite Urine Bilirubin Urine Urobilinogen Ur Leukocyte Esterase Urine RBC Urine WBC Ur Epithelial Cells Urine Bacteria SARS-CoV-2, RNA, NAAT 11/07/22 11/07/22 11/07/22 13:53 17:01 21:30 WBC RBC Hgb POC Hgb Hct POC Hct MCV MCH MCHC RDW Std Deviation RDW Coeff of [place] Javier Plt Count MPV Immature Gran % (Auto) Neut % (Auto) Lymph % (Auto) [place] % (Auto) Eos % (Auto) Baso % (Auto) Neut # (Auto) Lymph # (Auto) [place] # (Auto) Eos # (Auto) Baso # (Auto) Immature Gran # (Auto) PT INR APTT PTT Ratio POC Sodium Sodium POC Potassium Potassium POC Chloride Chloride Carbon Dioxide POC Total CO2 Anion Gap POC Anion Gap POC BUN BUN Creatinine POC Creatinine Est Cr Clr Drug Dosing Est GFR ( Amer) Est GFR (Non-Af Amer) BUN/Creatinine Ratio Glucose POC Glucose 124 H POC Glucose (other) Estimat Average Glucose Hemoglobin A1c Calcium POC Ioniz Calcium [place] Magnesium Total Bilirubin AST ALT Alkaline Phosphatase Troponin I High Sens B-Natriuretic Peptide Total Protein Albumin Globulin Albumin/Globulin Ratio Triglycerides Cholesterol LDL Cholesterol, Calc VLDL Cholesterol, Calc HDL Cholesterol Cholesterol/HDL Ratio TSH Free T4 Urine Color Yellow Urine Appearance Clear Urine pH 5.5 Ur Specific [place] 1.010 Urine Protein Negative Urine Glucose (UA) Negative Urine Ketones Negative Urine Blood Trace-intact H Urine Nitrite Negative Urine Bilirubin Negative Urine Urobilinogen Negative Ur Leukocyte Esterase 2+ H Urine RBC 0-4 Urine WBC 5-10 H Ur Epithelial Cells >30 H Urine Bacteria Negative SARS-CoV-2, RNA, NAAT NEGATIVE 11/08/22 11/08/22 11/08/22 05:42 05:42 05:42 WBC 7.57 RBC 4.01 L Hgb 11.5 L POC Hgb Hct 35.1 L POC Hct MCV 87.5 MCH 28.7 MCHC 32.8 RDW Std Deviation 55.0 H RDW Coeff of Francisco Javier 17.2 H Plt Count 225 MPV 11.0 Immature Gran % (Auto) Neut % (Auto) Lymph % (Auto) [place] % (Auto) Eos % (Auto) Baso % (Auto) Neut # (Auto) Lymph # (Auto) [place] # (Auto) Eos # (Auto) Baso # (Auto) Immature Gran # (Auto) PT INR APTT PTT Ratio POC Sodium Sodium 140 POC Potassium Potassium 3.9 POC Chloride Chloride 104 Carbon Dioxide 26 POC Total CO2 Anion Gap 10 POC Anion Gap POC BUN BUN 49 H Creatinine 1.37 H POC Creatinine Est Cr Clr Drug Dosing 30.8 Est GFR ( Amer) 41.5 Est GFR (Non-Af Amer) 35.8 BUN/Creatinine Ratio 35.8 H Glucose 110 H POC Glucose POC Glucose (other) Estimat Average Glucose 151 Hemoglobin A1c 6.9 H Calcium 10.1 POC Ioniz Calcium [place] Magnesium 2.2 Total Bilirubin 0.6 AST 50 H ALT 25 Alkaline Phosphatase 155 H Troponin I High Sens B-Natriuretic Peptide Total Protein 7.3 Albumin 3.9 Globulin 3.4 Albumin/Globulin Ratio 1.1 Triglycerides 126 Cholesterol 115 LDL Cholesterol, Calc 42 VLDL Cholesterol, Calc 25 HDL Cholesterol 48 Cholesterol/HDL Ratio 2.4 TSH Free T4 Urine Color Urine Appearance Urine pH Ur Specific [place] Urine Protein Urine Glucose (UA) Urine Ketones Urine Blood Urine Nitrite Urine Bilirubin Urine Urobilinogen Ur Leukocyte Esterase Urine RBC Urine WBC Ur Epithelial Cells Urine Bacteria SARS-CoV-2, RNA, NAAT 11/08/22 11/08/22 05:42 07:25 WBC RBC Hgb POC Hgb Hct POC Hct MCV MCH MCHC RDW Std Deviation RDW Coeff of Francisco Javier Plt Count MPV Immature Gran % (Auto) Neut % (Auto) Lymph % (Auto) [place] % (Auto) Eos % (Auto) Baso % (Auto) Neut # (Auto) Lymph # (Auto) [place] # (Auto) Eos # (Auto) Baso # (Auto) Immature Gran # (Auto) PT INR APTT PTT Ratio POC Sodium Sodium POC Potassium Potassium POC Chloride Chloride Carbon Dioxide POC Total CO2 Anion Gap POC Anion Gap POC BUN BUN Creatinine POC Creatinine Est Cr Clr Drug Dosing Est GFR ( Amer) Est GFR (Non-Af Amer) BUN/Creatinine Ratio Glucose POC Glucose 109 H POC Glucose (other) Estimat Average Glucose Hemoglobin A1c Calcium POC Ioniz Calcium [place] Magnesium Total Bilirubin AST ALT Alkaline Phosphatase Troponin I High Sens B-Natriuretic Peptide Total Protein Albumin Globulin Albumin/Globulin Ratio Triglycerides Cholesterol LDL Cholesterol, Calc VLDL Cholesterol, Calc HDL Cholesterol Cholesterol/HDL Ratio TSH 0.123 L Free T4 1.64 H Urine Color Urine Appearance Urine pH Ur Specific [place] Urine Protein Urine Glucose (UA) Urine Ketones Urine Blood Urine Nitrite Urine Bilirubin Urine Urobilinogen Ur Leukocyte Esterase Urine RBC Urine WBC Ur Epithelial Cells Urine Bacteria SARS-CoV-2, RNA, NAAT
[2022-11-08] MEDS ORDERED: FUROSEMIDE 40 MG/4 ML VIAL IV ONE (11:11)
[2022-11-08] MEDS ORDERED: POTASSIUM CHLORIDE CRTAB 20 MEQ TABCR PO ONE (11:15)
--- NOTE | 2022-11-08 16:12 | Hospitalist Progress Note ---
Date of Service November 08, 2022 Assessment & Plan (1) Stroke-like symptoms: Plan: Transient ischemic attack --MRI Brain:No acute intracranial findings. --Head/Neck CTA:No significant stenosis or occlusion within the [place]. No significant stenosis, occlusion, or dissection identified within the carotid or vertebral arteries. 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 --Head CT:No acute intracranial findings. No change in appearance of the brain. Stroke work up including lipid panel-unremarkable, [id number] elevated at 6.9 Recent ECHO: 10/21/22: Concentric LVH, EF 65%, right ventricle appears to be mildly dilated, right ventricular systolic function is mildly reduced, mild prolapse of anterior mitral valve, severe mitral regurgitation, severe tricuspid regurgitation, dilated IVC with reduced collapsibility, and severe pulmonary hypertension Speech and swallow eval-appreciated speech evaluation Continue aspirin, Lipitor Appreciate neurology input and recommendation-anticoagulation if no current indication otherwise aspirin plus Plavix for 21 days followed by Plavix alone Patient has been started on Eliquis 2.5 mg twice daily by the cardiology PT OT evaluation before discharge Acute on chronic diastolic heart failure CXR showed:Suspected mild pulmonary edema. Cardiomegaly. Last ECHO: As above BNP 1055 Clinically no overt signs of volume overload on exam Received IV Lasix in ED Continue torsemide Daily weight, I/Os, fluid restriction Monitor renal function/electrolytes Cardiology consulted-appreciate input and recommended Received another dose of intravenous Lasix 40 mg We will continue with torsemide 10 mg twice daily as before Abnormal urinalysis Denies any urinary symptoms Urine culture is growing gram-negative bacilli and ertapenem has been started due to allergy to multiple medications and antibiotics Generalized weakness Ambulatory dysfunction with balance issues Secondary to comorbidities PT OT Fall precautions Sick sinus syndrome S/P pacemaker H/O paroxysmal atrial fibrillation Continue sotalol Not on chronic anticoagulation DM Type II: HbA1C: 6.2 on 08/27/22 Diet controlled ISS per protocol while hospitalized Monitor BGs Recent Ear Infection Completed antibiotic course Follow-up with ENT as outpatient Other chronic conditions Pulmonary hypertension secondary hyperparathyroidism Asthma peripheral vascular disease Hypothyroidism Mnire's disease Obstructive sleep apnea on CPAP Iron deficiency anemia CKD stage III Past tobacco use Continue home medications DVT Px: Heparin SQ Code Status Full Code Admission and Anticipated Discharge Date Admission Date: November 07, 2022 Subjective 11/08/2022 The patient was seen and examined in telemetry unit She was admitted with strokelike symptoms and those have been resolved Denies any more strokelike symptoms Denies any chest pain or palpitation and no shortness of breath Review of Systems Review of Systems: All systems reviewed and are unremarkable except as noted below Physical Exam Physical Exam: Lying in bed comfortably Constitutional: well developed, well nourished and + obese; not ill appearing Eyes: PERRL, conjunctivae normal, anicteric sclerae ENMT: external ear and nose normal, oropharynx normal Neck: trachea midline, no thyromegaly Respiratory: no respiratory distress Auscultation: + diminished lung sounds and + crackles (Minimal crackles at the bases) Cardiovascular: Rate/Rhythm: regular rate and regular rhythm; not tachycardic Heart Sounds: normal S1, normal S2 and + murmur Extremities: + edema (Trace edema bilaterally) Musculoskeletal: No acute arthritis involving any joint Neurologic: Alert, awake and oriented x3. No focal neurodeficit Psychiatric: A+Ox3, euthymic affect Lymphatic: no cervical or axillary lymphadenopathy Results & Data Results & Data Vital Signs (Past 12 Hours) Vital Signs Temp Pulse Pulse Resp BP Pulse Ox O2 Del Method 11/08/22 15:17 63 11/08/22 07:23 36.6 C 60 18 118/68 93 CPAP 11/08/22 04:03 36.6 C 60 18 122/67 95 CPAP Laboratory Results Short CBC 11/08/22 Range/Units 05:42 WBC 7.57 (4.8-10.8) K/ul Hgb 11.5 L (12.0-16.0) g/dl Hct 35.1 L (37.0-47.0) % Plt Count 225 (130-400) K/uL BMP 11/08/22 05:42 Sodium 140 Potassium 3.9 Chloride 104 Carbon Dioxide 26 BUN 49 H Creatinine 1.37 H Glucose 110 H Calcium 10.1 Liver Function 11/08/22 Range/Units 05:42 Total Bilirubin 0.6 (0.2-1.0) mg/dl AST 50 H (13-39) U/L ALT 25 (7-52) U/L Alkaline Phosphatase 155 H (34-104) U/L Albumin 3.9 (3.4-5.0) gm/dl Urine 11/07/22 Range/Units 17:01 Urine Color Yellow Urine Appearance Clear (Clear) Urine pH 5.5 (4.5-7.5) Ur Specific [place] 1.010 (1.000-1.030) Urine Protein Negative (Negative) Urine Glucose (UA) Negative (Negative) Medications Administered Current Inpatient Medications Acetaminophen (Acetaminophen 325 Mg Tab) 650 mg PO Q4H PRN PRN Reason: Pain or Fever Stop: 12/07/22 20:20 Allopurinol (Allopurinol 100 Mg Tab) 200 mg PO HS JULIO CESAR Stop: 12/07/22 20:59 Last Admin: 11/07/22 21:34 Dose: 200 mg Alprazolam (Alprazolam 0.25 Mg Tablet) 0.25 mg PO HS JULIO CESAR Stop: 12/07/22 20:59 Last Admin: 11/07/22 21:34 Dose: 0.25 mg Apixaban (Apixaban 2.5 Mg Tab) 2.5 mg PO BID JULIO CESAR Stop: 12/08/22 20:59 Aspirin (Aspirin 81 Mg Ectab) 81 mg PO HS JULIO CESAR Stop: 12/07/22 20:59 Last Admin: 11/07/22 21:34 Dose: 81 mg Atorvastatin Calcium (Atorvastatin 20 Mg Tab) 20 mg PO QAM JULIO CESAR Stop: 12/08/22 08:59 Last Admin: 11/08/22 08:55 Dose: 20 mg Cyanocobalamin (Cyanocobalamin (B-12) 100 Mcg Tablet) 100 mcg PO DAILY JULIO CESAR Stop: 12/08/22 08:59 Last Admin: 11/08/22 08:55 Dose: 100 mcg Dextrose (Dextrose 50% 50 Ml Syringe) 25 - 50 ml IV UD PRN; Protocol PRN Reason: Hypoglycemia Protocol Stop: 12/07/22 20:20 Ferrous Sulfate (Ferrous Sulfate 325 Mg Tab) 325 mg PO DAILY JULIO CESAR Stop: 12/08/22 08:59 Last Admin: 11/08/22 08:55 Dose: 325 mg Folic Acid (Folic Acid 1 Mg Tab) 1 mg PO DAILY JULIO CESAR Stop: 12/08/22 08:59 Last Admin: 11/08/22 08:55 Dose: 1 mg Glucagon (Glucagon For Inj 1 Mg Vial) 1 mg SQ UD PRN; Protocol PRN Reason: Hypoglycemia Protocol Stop: 12/07/22 20:20 Glucose (Glucose 10 Tab/Tube) 4 - 8 tab PO UD PRN; Protocol PRN Reason: Hypoglycemia Treatment Stop: 12/07/22 20:20 Glucose (Glucose 40% Gel 15 Gm Tube) 15 - 30 gm PO UD PRN; Protocol PRN Reason: Hypoglycemia Protocol Stop: 12/07/22 20:20 Ertapenem 500 mg/ Syringe 5 mls @ 2 mls/min IV Q24H JULIO CESAR Stop: 11/18/22 08:59 Last Admin: 11/08/22 08:55 Dose: 2 mls/min Insulin Aspart (Insulin Aspart Per Unit) 0 units SC ACHS JULIO CESAR Stop: 12/07/22 20:59 Last Admin: 11/08/22 12:10 Dose: 2 units Levalbuterol HCl (Levalbuterol Tartrate 15 Gm Hfa.Aer.Ad) 1 puffs INH Q4 PRN PRN Reason: Shortness Of Breath Stop: 12/07/22 20:20 Levothyroxine Sodium (Levothyroxine Sodium 150 Mcg Tablet) 150 mcg PO DAILYBB JULIO CESAR Stop: 12/08/22 06:29 Last Admin: 11/08/22 06:22 Dose: 150 mcg Miscellaneous (Carbohydrates For Hypoglycemia ) 15 - 30 gm PO UD PRN PRN Reason: Hypoglycemia Protocol Stop: 12/07/22 20:20 Montelukast Sodium (Montelukast Sodium 10 Mg Tablet) 10 mg PO PM JULIO CESAR Stop: 12/07/22 20:59 Last Admin: 11/07/22 21:35 Dose: 10 mg Pantoprazole Sodium (Pantoprazole 40 Mg Tab) 40 mg PO DAILY JULIO CESAR Stop: 12/08/22 08:59 Last Admin: 11/08/22 08:56 Dose: 40 mg Polyethylene Glycol (Polyethylene (Miralax) 17 Gm Pack) 17 gm PO DAILY PRN PRN Reason: Constipation Stop: 12/07/22 20:20 Sertraline HCl (Sertraline Hcl 100 Mg Tablet) 100 mg PO DAILY JULIO CESAR Stop: 12/08/22 08:59 Last Admin: 11/08/22 08:55 Dose: 100 mg Sotalol HCl (Sotalol Hcl 80 Mg Tab) 40 mg PO BID JULIO CESAR Stop: 12/07/22 20:59 Last Admin: 11/08/22 08:56 Dose: 40 mg Torsemide (Torsemide 10 Mg Tab) 10 mg PO BID@0900,1400 JULIO CESAR Stop: 12/08/22 08:59 Last Admin: 11/08/22 14:05 Dose: 10 mg Umeclidinium/Vilanterol (Umeclidinium/Vilanterol 62.5/25mcg 7 Puffs/Inhaler) 1 puffs INH DAILY JULIO CESAR Stop: 12/08/22 08:59 Last Admin: 11/08/22 08:57 Dose: 1 puffs Vitamin D (Cholecalciferol 1,000 Units 25 Mcg Tab) 4,000 units PO QAM [facility] Stop: 12/08/22 08:59 Last Admin: 11/08/22 08:55 Dose: 4,000 units
[2022-11-08] MEDS: allopurinoL 100 MG TAB PO SCH (20:30)
[2022-11-08] MEDS: ASPIRIN 81 MG ECTAB PO SCH (20:30)
[2022-11-08] MEDS: APIXABAN 2.5 MG TAB PO SCH (20:30)
[2022-11-08] MEDS: MONTELUKAST SODIUM 10 MG TABLET PO SCH (20:30)
[2022-11-08] MEDS: ALPRAZolam 0.25 MG TABLET PO SCH (20:36)
[2022-11-08] MEDS ORDERED: traMADol HCL 50 MG TABLET PO STA (23:37)
--- NOTE | 2022-11-09 00:34 | Electrocardiogram Report ---
Test Reason : Blood Pressure : / mmHG Vent. Rate : 067 BPM Atrial Rate : 067 BPM P-R Int : 110 ms QRS Dur : 120 ms QT Int : 474 ms P-R-T Axes : 064 143 022 degrees QTc Int : 500 ms Poor data quality, interpretation may be adversely affected Atrial-sensed ventricular-paced rhythm Abnormal ECG When compared with ECG of 07-AUG-2022 18:32, Vent. rate has increased BY 6 BPM Confirmed by Allan Paulino ([id number]) on 11/09/2022 12:34:14 AM Referred By: Confirmed By:Allan Paulino
--- NOTE | 2022-11-09 02:10 | Electrocardiogram Report ---
Test Reason : Blood Pressure : / mmHG Vent. Rate : 062 BPM Atrial Rate : 062 BPM P-R Int : 128 ms QRS Dur : 126 ms QT Int : 538 ms P-R-T Axes : 061 135 022 degrees QTc Int : 546 ms Poor data quality, interpretation may be adversely affected AV dual-paced rhythm Abnormal ECG When compared with ECG of 07-NOV-2022 11:28, Vent. rate has decreased BY 5 BPM Confirmed by Allan Paulino ([id number]) on 11/09/2022 2:09:48 AM Referred By: Florentin Calvo Confirmed By:Allan Paulino
[2022-11-09] MEDS: LEVOTHYROXINE SODIUM 150 MCG TABLET PO SCH (06:35)
[2022-11-09 07:05] LABS: Basophils # (auto) 0.08 K/uL (0-0.2); Eosinophils % (auto) 7.3 %; Hematocrit (blood only) 33.5 % (37.0-47.0); Hemoglobin 10.9 g/dl (12.0-16.0); Immature Granulocytes # (auto) 0.03 K/uL (0.01-0.20); Immature Granulocytes % (auto) 0.4 %; Lymphocytes # (auto) 1.57 K/uL (1.2-3.4); Mean Corpuscular Hemoglobin 28.2 pg (25.0-34.0); Mean Corpuscular Hgb Conc 32.5 g/dL (32.0-36.0); Mean Corpuscular Volume 86.6 fL (80.0-100.0); Mean Platelet Volume 10.6 fL (9.4-12.4); Monocytes % (auto) 13.3 %; Neutrophils # (auto) 4.89 K/uL (1.40-6.50); Platelet Count 207 K/uL (130-400); RDW Coefficient of Variation 17.5 % (11.5-14.5); RDW Standard Deviation 55.2 fL (36.4-46.3); Red Blood Count 3.87 M/uL (4.20-5.40); White Blood Count 8.27 K/ul (4.8-10.8)
[2022-11-09 07:31] LABS: BUN Creatinine Ratio 30.9 (10-20); Calcium 9.4 mg/dl (8.5-10.1); Creatinine Clr Calc Pharmacy 22.5 ml/min; Est GFR (African American) 28.3 ml/min; Est GFR (Non-African American) 24.4 ml/min; Magnesium 2.3 mg/dl (1.7-2.4); Potassium 4.4 mmol/L (3.5-5.1)
[2022-11-09] MEDS: INSULIN ASPART PER UNIT CHARGE SC SCH ×4 (09:03→20:40)
[2022-11-09] MEDS: PANTOprazole 40 MG TAB PO SCH (09:04)
[2022-11-09] MEDS: FERROUS SULFATE 325 MG TAB PO SCH (09:04)
[2022-11-09] MEDS: APIXABAN 2.5 MG TAB PO SCH ×2 (09:04→21:45)
[2022-11-09] MEDS: ATORVASTATIN 20 MG TAB PO SCH (09:04)
[2022-11-09] MEDS: SOTALOL HCL 80 MG TAB PO SCH ×2 (09:04→21:43)
[2022-11-09] MEDS: ERTAPENEM SODIUM 500 MG in SYRINGE 0 ML IV SCH (09:04)
[2022-11-09] MEDS: FOLIC ACID 1 MG TAB PO SCH (09:04)
[2022-11-09] MEDS: CYANOCOBALAMIN (B-12) 100 MCG TABLET PO SCH (09:04)
[2022-11-09] MEDS: CHOLECALCIFEROL 1,000 UNITS 25 MCG TAB PO SCH (09:04)
[2022-11-09] MEDS: TORSEMIDE 10 MG TAB PO SCH ×2 (09:05→12:48)
[2022-11-09] MEDS: UMECLIDINIUM/VILANTEROL 62.5/25MCG 7 PUFFS/INHALER INH SCH (09:05)
[2022-11-09] MEDS: SERTRALINE HCL 100 MG TABLET PO SCH (09:05)
--- NOTE | 2022-11-09 11:38 | Cardiology Progress Note ---
Date of Service November 09, 2022 Assessment & Plan (1) TIA (transient ischemic attack): (2) Paroxysmal atrial fibrillation: (3) Acute on chronic diastolic heart failure: (4) Severe mitral insufficiency: Plan Patient is a complex 82-year-old female with known history of paroxysmal atrial fibrillation on antiarrhythmic therapy with sotalol, sick sinus syndrome status post pacemaker, diastolic heart failure secondary to valvular heart disease She presents now with acute decline with possible TIA symptoms now resolved Patient at risk for recurrent CVA given paroxysmal atrial fibrillation X-ray consistent with mild congestive heart failure Recent history of infection with possible urinary tract infection currently Recommendations: Continue prehospital diuretic dosing with torsemide 10 mg twice per day. No further IV diuretic CHF instructions Anticoagulation initiated with reduced dose apixaban given renal insufficiency and age. No atrial fibrillation observed this admission Discontinue aspirin in 2 weeks Complete treatment of urinary tract infection Follow-up cardiology 2 to 4-week Admission and Anticipated Discharge Date Admission Date: November 07, 2022 Subjective Patient seen and examined, chart, medications, telemetry reviewed. No further neurologic complaints. Results & Data Vital Signs (Past 12 Hours) Vital Signs Temp Pulse Pulse Pulse Resp BP BP 11/09/22 10:06 11/09/22 08:00 36.4 C L 62 18 123/65 11/09/22 03:13 36.6 C 61 18 128/84 11/09/22 02:29 18 11/09/22 00:00 75 Pulse Ox O2 Del Method FiO2 11/09/22 10:06 Room Air 11/09/22 08:00 96 Room Air 11/09/22 03:13 94 CPAP 11/09/22 02:29 21 11/09/22 00:00 Laboratory Results Laboratory Results - last 24 hr 11/08/22 11/08/22 11/09/22 16:37 20:24 05:39 WBC 8.27 RBC 3.87 L Hgb 10.9 L Hct 33.5 L MCV 86.6 MCH 28.2 MCHC 32.5 RDW Std Deviation 55.2 H RDW Coeff of Francisco Javier 17.5 H Plt Count 207 MPV 10.6 Immature Gran % (Auto) 0.4 Neut % (Auto) 59.0 Lymph % (Auto) 19.0 [place] % (Auto) 13.3 Eos % (Auto) 7.3 Baso % (Auto) 1.0 Neut # (Auto) 4.89 Lymph # (Auto) 1.57 [place] # (Auto) 1.10 H Eos # (Auto) 0.60 H Baso # (Auto) 0.08 Immature Gran # (Auto) 0.03 Sodium Potassium Chloride Carbon Dioxide Anion Gap BUN Creatinine Est Cr Clr Drug Dosing Est GFR ( Amer) Est GFR (Non-Af Amer) BUN/Creatinine Ratio Glucose POC Glucose 166 H 112 H Calcium Magnesium 11/09/22 11/09/22 05:39 08:22 WBC RBC Hgb Hct MCV MCH MCHC RDW Std Deviation RDW Coeff of Francisco Javier Plt Count MPV Immature Gran % (Auto) Neut % (Auto) Lymph % (Auto) [place] % (Auto) Eos % (Auto) Baso % (Auto) Neut # (Auto) Lymph # (Auto) [place] # (Auto) Eos # (Auto) Baso # (Auto) Immature Gran # (Auto) Sodium 138 Potassium 4.4 Chloride 103 Carbon Dioxide 27 Anion Gap 8 BUN 58 H Creatinine 1.88 H D Est Cr Clr Drug Dosing 22.5 Est GFR ( Amer) 28.3 Est GFR (Non-Af Amer) 24.4 BUN/Creatinine Ratio 30.9 H Glucose 116 H POC Glucose 122 H Calcium 9.4 Magnesium 2.3
--- NOTE | 2022-11-09 13:53 | Hospitalist Progress Note ---
Date of Service November 09, 2022 Assessment & Plan (1) Stroke-like symptoms: Plan: Transient ischemic attack --MRI Brain:No acute intracranial findings. --Head/Neck CTA:No significant stenosis or occlusion within the [place] of [place]. No significant stenosis, occlusion, or dissection identified within the carotid or vertebral arteries. 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 --Head CT:No acute intracranial findings. No change in appearance of the brain. Stroke work up including lipid panel-unremarkable, [id number] elevated at 6.9 Recent ECHO: 10/21/22: Concentric LVH, EF 65%, right ventricle appears to be mildly dilated, right ventricular systolic function is mildly reduced, mild prolapse of anterior mitral valve, severe mitral regurgitation, severe tricuspid regurgitation, dilated IVC with reduced collapsibility, and severe pulmonary hypertension Speech and swallow eval-appreciated speech evaluation Continue aspirin, Lipitor Appreciate neurology input and recommendation-anticoagulation if no current indication otherwise aspirin plus Plavix for 21 days followed by Plavix alone Patient has been started on Eliquis 2.5 mg twice daily by the cardiology PT OT evaluation before discharge Has had minimal tongue swelling this morning likely secondary to another TIA event Reassured and the patient did not have any other neurological deficit on examination Acute on chronic diastolic heart failure CXR showed:Suspected mild pulmonary edema. Cardiomegaly. Last ECHO: As above BNP 1055 Clinically no overt signs of volume overload on exam Received IV Lasix in ED Continue torsemide Daily weight, I/Os, fluid restriction Monitor renal function/electrolytes Cardiology consulted-appreciate input and recommended Received another dose of intravenous Lasix 40 mg We will continue with torsemide 10 mg twice daily as before Remains stable with ongoing diuresis Abnormal urinalysis Denies any urinary symptoms Urine culture is growing gram-negative bacilli and ertapenem has been started due to allergy to multiple medications and antibiotics Urine is growing Klebsiella erogenous which is pansensitive except nitrofurantoin, ertapenem will be continued as she is allergic to so many antibiotics Generalized weakness Ambulatory dysfunction with balance issues Secondary to comorbidities PT OT Fall precautions Sick sinus syndrome S/P pacemaker H/O paroxysmal atrial fibrillation Continue sotalol Not on chronic anticoagulation DM Type II: HbA1C: 6.2 on 08/27/22 Diet controlled ISS per protocol while hospitalized Monitor BGs Recent Ear Infection Completed antibiotic course Follow-up with ENT as outpatient Other chronic conditions Pulmonary hypertension secondary hyperparathyroidism Asthma peripheral vascular disease Hypothyroidism Mnire's disease Obstructive sleep apnea on CPAP Iron deficiency anemia CKD stage III Past tobacco use Continue home medications DVT Px: Heparin SQ Code Status Full Code Admission and Anticipated Discharge Date Admission Date: November 07, 2022 Subjective 11/08/2022 The patient was seen and examined in telemetry unit She was admitted with strokelike symptoms and those have been resolved Denies any more strokelike symptoms Denies any chest pain or palpitation and no shortness of breath 11/09/2022 The patient was seen and examined in telemetry unit She has had some tongue swelling this morning with some problem with speech No problem with swallowing and she did not have any other neurodeficit associate d with it Denies any chest pain or palpitation and no shortness of breath at rest Review of Systems Review of Systems: All systems reviewed and are unremarkable except as noted below Physical Exam Physical Exam: Lying in bed comfortably Constitutional: well developed, well nourished and + obese; not ill appearing Eyes: PERRL, conjunctivae normal, anicteric sclerae ENMT: external ear and nose normal, oropharynx normal Neck: trachea midline, no thyromegaly Respiratory: no respiratory distress Auscultation: + diminished lung sounds and + crackles (Minimal crackles at the bases) Cardiovascular: Rate/Rhythm: regular rate and regular rhythm; not tachycardic Heart Sounds: normal S1, normal S2 and + murmur Extremities: + edema (Trace edema bilaterally) Gastrointestinal (Abdomen): Inspection/Auscultation: normal bowel sounds; abdomen not distended Percussion/Palpation: abdomen soft; abdomen nontender Musculoskeletal: No acute arthritis involving any joint Neurologic: Alert, awake and ready oriented x3. Subjective tongue swelling but no objective findings.No focal sensory or motor deficit appreciated Psychiatric: A+Ox3, euthymic affect Lymphatic: no cervical or axillary lymphadenopathy Results & Data Results & Data Vital Signs (Past 12 Hours) Vital Signs Temp Pulse Pulse Resp BP BP Pulse Ox 11/09/22 13:30 36.0 C L 69 18 164/87 H 97 11/09/22 10:06 11/09/22 08:00 36.4 C L 62 18 123/65 96 11/09/22 03:13 36.6 C 61 18 128/84 94 11/09/22 02:29 18 O2 Del Method FiO2 11/09/22 13:30 Room Air 11/09/22 10:06 Room Air 11/09/22 08:00 Room Air 11/09/22 03:13 CPAP 11/09/22 02:29 21 Laboratory Results Short CBC 11/09/22 Range/Units 05:39 WBC 8.27 (4.8-10.8) K/ul Hgb 10.9 L (12.0-16.0) g/dl Hct 33.5 L (37.0-47.0) % Plt Count 207 (130-400) K/uL BMP 11/09/22 05:39 Sodium 138 Potassium 4.4 Chloride 103 Carbon Dioxide 27 BUN 58 H Creatinine 1.88 H D Glucose 116 H Calcium 9.4 Medications Administered Current Inpatient Medications Acetaminophen (Acetaminophen 325 Mg Tab) 650 mg PO Q4H PRN PRN Reason: Pain or Fever Stop: 12/07/22 20:20 Allopurinol (Allopurinol 100 Mg Tab) 200 mg PO HS JULIO CESAR Stop: 12/07/22 20:59 Last Admin: 11/08/22 20:30 Dose: 200 mg Alprazolam (Alprazolam 0.25 Mg Tablet) 0.25 mg PO HS JULIO CESAR Stop: 12/07/22 20:59 Last Admin: 11/08/22 20:36 Dose: 0.25 mg Apixaban (Apixaban 2.5 Mg Tab) 2.5 mg PO BID JULIO CESAR Stop: 12/08/22 20:59 Last Admin: 11/09/22 09:04 Dose: 2.5 mg Aspirin (Aspirin 81 Mg Ectab) 81 mg PO HS JULIO CESAR Stop: 12/07/22 20:59 Last Admin: 11/08/22 20:30 Dose: 81 mg Atorvastatin Calcium (Atorvastatin 20 Mg Tab) 20 mg PO QAM JULIO CESAR Stop: 12/08/22 08:59 Last Admin: 11/09/22 09:04 Dose: 20 mg Cyanocobalamin (Cyanocobalamin (B-12) 100 Mcg Tablet) 100 mcg PO DAILY JULIO CESAR Stop: 12/08/22 08:59 Last Admin: 11/09/22 09:04 Dose: 100 mcg Dextrose (Dextrose 50% 50 Ml Syringe) 25 - 50 ml IV UD PRN; Protocol PRN Reason: Hypoglycemia Protocol Stop: 12/07/22 20:20 Ferrous Sulfate (Ferrous Sulfate 325 Mg Tab) 325 mg PO DAILY JULIO CESAR Stop: 12/08/22 08:59 Last Admin: 11/09/22 09:04 Dose: 325 mg Folic Acid (Folic Acid 1 Mg Tab) 1 mg PO DAILY JULIO CESAR Stop: 12/08/22 08:59 Last Admin: 11/09/22 09:04 Dose: 1 mg Glucagon (Glucagon For Inj 1 Mg Vial) 1 mg SQ UD PRN; Protocol PRN Reason: Hypoglycemia Protocol Stop: 12/07/22 20:20 Glucose (Glucose 10 Tab/Tube) 4 - 8 tab PO UD PRN; Protocol PRN Reason: Hypoglycemia Treatment Stop: 12/07/22 20:20 Glucose (Glucose 40% Gel 15 Gm Tube) 15 - 30 gm PO UD PRN; Protocol PRN Reason: Hypoglycemia Protocol Stop: 12/07/22 20:20 Ertapenem 500 mg/ Syringe 5 mls @ 2 mls/min IV Q24H JULIO CESAR Stop: 11/18/22 08:59 Last Admin: 11/09/22 09:04 Dose: 2 mls/min Insulin Aspart (Insulin Aspart Per Unit) 0 units SC ACHS JULIO CESAR Stop: 12/07/22 20:59 Last Admin: 11/09/22 12:37 Dose: 2 units Levalbuterol HCl (Levalbuterol Tartrate 15 Gm Hfa.Aer.Ad) 1 puffs INH Q4 PRN PRN Reason: Shortness Of Breath Stop: 12/07/22 20:20 Levothyroxine Sodium (Levothyroxine Sodium 150 Mcg Tablet) 150 mcg PO DAILYBB JULIO CESAR Stop: 12/08/22 06:29 Last Admin: 11/09/22 06:35 Dose: 150 mcg Miscellaneous (Carbohydrates For Hypoglycemia ) 15 - 30 gm PO UD PRN PRN Reason: Hypoglycemia Protocol Stop: 12/07/22 20:20 Montelukast Sodium (Montelukast Sodium 10 Mg Tablet) 10 mg PO PM JULIO CESAR Stop: 12/07/22 20:59 Last Admin: 11/08/22 20:30 Dose: 10 mg Pantoprazole Sodium (Pantoprazole 40 Mg Tab) 40 mg PO DAILY JULIO CESAR Stop: 12/08/22 08:59 Last Admin: 11/09/22 09:04 Dose: 40 mg Polyethylene Glycol (Polyethylene (Miralax) 17 Gm Pack) 17 gm PO DAILY PRN PRN Reason: Constipation Stop: 12/07/22 20:20 Sertraline HCl (Sertraline Hcl 100 Mg Tablet) 100 mg PO DAILY JULIO CESAR Stop: 12/08/22 08:59 Last Admin: 11/09/22 09:05 Dose: 100 mg Sotalol HCl (Sotalol Hcl 80 Mg Tab) 40 mg PO BID JULIO CESAR Stop: 12/07/22 20:59 Last Admin: 11/09/22 09:04 Dose: 40 mg Torsemide (Torsemide 10 Mg Tab) 10 mg PO BID@0900,1400 JULIO CESAR Stop: 12/08/22 08:59 Last Admin: 11/09/22 12:48 Dose: 10 mg Umeclidinium/Vilanterol (Umeclidinium/Vilanterol 62.5/25mcg 7 Puffs/Inhaler) 1 puffs INH DAILY JULIO CESAR Stop: 12/08/22 08:59 Last Admin: 11/09/22 09:05 Dose: 1 puffs Vitamin D (Cholecalciferol 1,000 Units 25 Mcg Tab) 4,000 units PO QAM JULIO CESAR Stop: 12/08/22 08:59 Last Admin: 11/09/22 09:04 Dose: 4,000 units
[2022-11-09] MEDS: ASPIRIN 81 MG ECTAB PO SCH (21:43)
[2022-11-09] MEDS: MONTELUKAST SODIUM 10 MG TABLET PO SCH (21:43)
[2022-11-09] MEDS: allopurinoL 100 MG TAB PO SCH (21:44)
[2022-11-09] MEDS: ALPRAZolam 0.25 MG TABLET PO SCH (21:45)
[2022-11-10] MEDS: LEVOTHYROXINE SODIUM 150 MCG TABLET PO SCH (06:14)
[2022-11-10] MEDS: APIXABAN 2.5 MG TAB PO SCH ×2 (08:51→20:42)
[2022-11-10] MEDS: CHOLECALCIFEROL 1,000 UNITS 25 MCG TAB PO SCH (08:51)
[2022-11-10] MEDS: TORSEMIDE 10 MG TAB PO SCH (08:51)
[2022-11-10] MEDS: ATORVASTATIN 20 MG TAB PO SCH (08:51)
[2022-11-10] MEDS: SERTRALINE HCL 100 MG TABLET PO SCH (08:52)
[2022-11-10] MEDS: FERROUS SULFATE 325 MG TAB PO SCH (08:52)
[2022-11-10] MEDS: PANTOprazole 40 MG TAB PO SCH (08:52)
[2022-11-10] MEDS: SOTALOL HCL 80 MG TAB PO SCH ×2 (08:52→20:42)
[2022-11-10] MEDS: FOLIC ACID 1 MG TAB PO SCH (08:53)
[2022-11-10] MEDS: CYANOCOBALAMIN (B-12) 100 MCG TABLET PO SCH (08:53)
[2022-11-10 09:00] LABS: BUN Creatinine Ratio 32.2 (10-20); Calcium 9.4 mg/dl (8.5-10.1); Creatinine Clr Calc Pharmacy 20.5 ml/min; Est GFR (African American) 25.1 ml/min; Est GFR (Non-African American) 21.6 ml/min; Magnesium 2.3 mg/dl (1.7-2.4); Potassium 4.1 mmol/L (3.5-5.1)
[2022-11-10] MEDS: INSULIN ASPART PER UNIT CHARGE SC SCH ×4 (09:40→20:45)
[2022-11-10] MEDS: ERTAPENEM SODIUM 500 MG in SYRINGE 0 ML IV SCH (09:42)
[2022-11-10] MEDS: UMECLIDINIUM/VILANTEROL 62.5/25MCG 7 PUFFS/INHALER INH SCH (09:42)
--- NOTE | 2022-11-10 11:42 | Cardiology Progress Note ---
Date of Service November 10, 2022 Assessment & Plan (1) TIA (transient ischemic attack): (2) Paroxysmal atrial fibrillation: (3) Acute on chronic diastolic heart failure: (4) Severe mitral insufficiency: (5) Acute renal insufficiency: Plan Patient is a complex 82-year-old female with known history of paroxysmal atrial fibrillation on antiarrhythmic therapy with sotalol, sick sinus syndrome status post pacemaker, diastolic heart failure secondary to valvular heart disease She presents now with acute decline with possible TIA symptoms now resolved Patient at risk for recurrent CVA given paroxysmal atrial fibrillation X-ray consistent with mild congestive heart failure Recent history of infection with possible urinary tract infection currently 11/10/2022 Possible recurrent TIA yesterday now back on apixaban at appropriate dosing No bleeding No worsening shortness of breath Renal function has declined possibly in conjunction with diuretics as well as acute contrast administration Recommendations: Hold torsemide Continue other medications as prescribed. Including sotalol, apixaban, aspirin Admission and Anticipated Discharge Date Admission Date: November 07, 2022 Subjective Patient seen and examined, chart, medications, telemetry reviewed. Patient noted difficulties with tongue sensation of swelling and slurring of speech yesterday. No further overnight. Renal function has declined since admission possibly due to diuretics and contrast administration. No shortness of breath no chest pains no dizziness no bleeding Review of Systems Review of Systems: All systems reviewed & are unremarkable except as noted in Subjective Physical Exam Constitutional: WD/WN, vitals as above Eyes: PERRL, conjunctivae normal, anicteric sclerae ENMT: external ear and nose normal, oropharynx normal Neck: trachea midline, no thyromegaly Respiratory: Auscultation: + crackles (Right base) Cardiovascular: Rate/Rhythm: regular rate and regular rhythm Heart Sounds: no murmur Vessels: no JVD Extremities: no edema Gastrointestinal (Abdomen): normal bowel sounds, soft, nontender, no hepatos plenomegaly Results & Data Vital Signs (Past 12 Hours) Vital Signs Temp Pulse Pulse Resp BP BP Pulse Ox 11/10/22 11:26 36.4 C L 61 16 104/65 95 11/10/22 07:53 36.5 C 60 16 111/67 95 11/10/22 07:28 60 11/10/22 00:00 63 11/10/22 03:23 36.4 C L 73 18 120/69 93 11/10/22 02:25 60 18 99 O2 Del Method FiO2 11/10/22 11:26 Room Air 11/10/22 07:53 Room Air 11/10/22 07:28 11/10/22 00:00 11/10/22 03:23 CPAP 11/10/22 02:25 21 Laboratory Results Laboratory Results - last 24 hr 11/09/22 11/09/22 11/10/22 16:10 20:08 07:37 Sodium Potassium Chloride Carbon Dioxide Anion Gap BUN Creatinine Est Cr Clr Drug Dosing Est GFR ( Amer) Est GFR (Non-Af Amer) BUN/Creatinine Ratio Glucose POC Glucose 96 123 H 117 H Calcium Magnesium 11/10/22 11/10/22 08:19 11:10 Sodium 134 L Potassium 4.1 Chloride 101 Carbon Dioxide 23 Anion Gap 10 BUN 67 H Creatinine 2.08 H Est Cr Clr Drug Dosing 20.5 Est GFR ( Amer) 25.1 Est GFR (Non-Af Amer) 21.6 BUN/Creatinine Ratio 32.2 H Glucose 144 H POC Glucose 149 H Calcium 9.4 Magnesium 2.3
--- NOTE | 2022-11-10 12:59 | Hospitalist Progress Note ---
Date of Service November 10, 2022 Assessment & Plan (1) Stroke-like symptoms: Plan: Transient ischemic attack --MRI Brain:No acute intracranial findings. --Head/Neck CTA:No significant stenosis or occlusion within the [place]. No significant stenosis, occlusion, or dissection identified within the carotid or vertebral arteries. 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 --Head CT:No acute intracranial findings. No change in appearance of the brain. Stroke work up including lipid panel-unremarkable, [id number] elevated at 6.9 Recent ECHO: 10/21/22: Concentric LVH, EF 65%, right ventricle appears to be mildly dilated, right ventricular systolic function is mildly reduced, mild prolapse of anterior mitral valve, severe mitral regurgitation, severe tricuspid regurgitation, dilated IVC with reduced collapsibility, and severe pulmonary hypertension Speech and swallow eval-appreciated speech evaluation Continue aspirin, Lipitor Appreciate neurology input and recommendation-anticoagulation if no current indication otherwise aspirin plus Plavix for 21 days followed by Plavix alone Patient has been started on Eliquis 2.5 mg twice daily by the cardiology PT OT evaluation before discharge Has had minimal tongue swelling this morning likely secondary to another TIA event Reassured and the patient did not have any other neurological deficit on examination Resolved tongue heaviness and numbness and does not have any more neurodeficit in the extremities TIA resolved Acute on chronic diastolic heart failure CXR showed:Suspected mild pulmonary edema. Cardiomegaly. Last ECHO: As above BNP 1055 Clinically no overt signs of volume overload on exam Received IV Lasix in ED Continue torsemide Daily weight, I/Os, fluid restriction Monitor renal function/electrolytes Cardiology consulted-appreciate input and recommended Received another dose of intravenous Lasix 40 mg We will continue with torsemide 10 mg twice daily as before Remains stable with ongoing diuresis Creatinine remains elevated at more than 2 likely secondary to use of diuretics We will monitor PRP tomorrow and restart torsemide when the level is down Abnormal urinalysis Denies any urinary symptoms Urine culture is growing gram-negative bacilli and ertapenem has been started due to allergy to multiple medications and antibiotics Urine is growing Klebsiella erogenous which is pansensitive except nitrofurantoin, ertapenem will be continued as she is allergic to so many antibiotics Will continue current antibiotic for about 5 days in total Generalized weakness Ambulatory dysfunction with balance issues Secondary to comorbidities PT OT Fall precautions Sick sinus syndrome S/P pacemaker H/O paroxysmal atrial fibrillation Continue sotalol Not on chronic anticoagulation DM Type II: HbA1C: 6.2 on 08/27/22 Diet controlled ISS per protocol while hospitalized Monitor BGs Recent Ear Infection Completed antibiotic course Follow-up with ENT as outpatient Other chronic conditions Pulmonary hypertension secondary hyperparathyroidism Asthma peripheral vascular disease Hypothyroidism Mnire's disease Obstructive sleep apnea on CPAP Iron deficiency anemia CKD stage III Past tobacco use Continue home medications DVT Px: Heparin SQ Code Status Full Code Admission and Anticipated Discharge Date Admission Date: November 07, 2022 Subjective 11/08/2022 The patient was seen and examined in telemetry unit She was admitted with strokelike symptoms and those have been resolved Denies any more strokelike symptoms Denies any chest pain or palpitation and no shortness of breath 11/09/2022 The patient was seen and examined in telemetry unit She has had some tongue swelling this morning with some problem with speech No problem with swallowing and she did not have any other neurodeficit associated with it Denies any chest pain or palpitation and no shortness of breath at rest 11/10/2022 The patient was seen and examined in telemetry unit She denies any more tongue swelling and or numbness Does not have any symptoms of stroke and/or new symptoms of stroke Generally feeling a lot better Review of Systems Review of Systems: All systems reviewed and are unremarkable except as noted below Physical Exam Physical Exam: Lying in bed comfortably Constitutional: well developed, well nourished and + obese; not ill appearing Eyes: PERRL, conjunctivae normal, anicteric sclerae ENMT: external ear and nose normal, oropharynx normal Neck: trachea midline, no thyromegaly Respiratory: no respiratory distress Auscultation: + diminished lung sounds and + crackles (Minimal crackles at the bases) Cardiovascular: Rate/Rhythm: regular rate and regular rhythm; not tachycardic Heart Sounds: normal S1, normal S2 and + murmur Extremities: + edema (Trace edema bilaterally) Gastrointestinal (Abdomen): Inspection/Auscultation: normal bowel sounds; abdomen not distended Percussion/Palpation: abdomen soft; abdomen nontender Musculoskeletal: No acute arthritis involving any joint Neurologic: normal touch/pain/proprioception and moves all extremities; no focal motor deficits Alert, awake and oriented x3. No focal sensory or no motor deficit appreciated Psychiatric: A+Ox3, euthymic affect Lymphatic: no cervical or axillary lymphadenopathy Results & Data Results & Data Vital Signs (Past 12 Hours) Vital Signs Temp Pulse Pulse Resp BP BP Pulse Ox 11/10/22 11:26 36.4 C L 61 16 104/65 95 11/10/22 07:53 36.5 C 60 16 111/67 95 11/10/22 07:28 60 11/10/22 03:23 36.4 C L 73 18 120/69 93 11/10/22 02:25 60 18 99 O2 Del Method FiO2 11/10/22 11:26 Room Air 11/10/22 07:53 Room Air 11/10/22 07:28 11/10/22 03:23 CPAP 11/10/22 02:25 21 Laboratory Results BMP 11/10/22 08:19 Sodium 134 L Potassium 4.1 Chloride 101 Carbon Dioxide 23 BUN 67 H Creatinine 2.08 H Glucose 144 H Calcium 9.4 Medications Administered Current Inpatient Medications Acetaminophen (Acetaminophen 325 Mg Tab) 650 mg PO Q4H PRN PRN Reason: Pain or Fever Stop: 12/07/22 20:20 Allopurinol (Allopurinol 100 Mg Tab) 200 mg PO HS JULIO CESAR Stop: 12/07/22 20:59 Last Admin: 11/09/22 21:44 Dose: 200 mg Alprazolam (Alprazolam 0.25 Mg Tablet) 0.25 mg PO HS JULIO CESAR Stop: 12/07/22 20:59 Last Admin: 11/09/22 21:45 Dose: 0.25 mg Apixaban (Apixaban 2.5 Mg Tab) 2.5 mg PO BID JULIO CESAR Stop: 12/08/22 20:59 Last Admin: 11/10/22 08:51 Dose: 2.5 mg Aspirin (Aspirin 81 Mg Ectab) 81 mg PO HS JULIO CESAR Stop: 12/07/22 20:59 Last Admin: 11/09/22 21:43 Dose: 81 mg Atorvastatin Calcium (Atorvastatin 20 Mg Tab) 20 mg PO QAM JULIO CESAR Stop: 12/08/22 08:59 Last Admin: 11/10/22 08:51 Dose: 20 mg Cyanocobalamin (Cyanocobalamin (B-12) 100 Mcg Tablet) 100 mcg PO DAILY JULIO CESAR Stop: 12/08/22 08:59 Last Admin: 11/10/22 08:53 Dose: 100 mcg Dextrose (Dextrose 50% 50 Ml Syringe) 25 - 50 ml IV UD PRN; Protocol PRN Reason: Hypoglycemia Protocol Stop: 12/07/22 20:20 Ferrous Sulfate (Ferrous Sulfate 325 Mg Tab) 325 mg PO DAILY JULIO CESAR Stop: 12/08/22 08:59 Last Admin: 11/10/22 08:52 Dose: 325 mg Folic Acid (Folic Acid 1 Mg Tab) 1 mg PO DAILY JULIO CESAR Stop: 12/08/22 08:59 Last Admin: 11/10/22 08:53 Dose: 1 mg Glucagon (Glucagon For Inj 1 Mg Vial) 1 mg SQ UD PRN; Protocol PRN Reason: Hypoglycemia Protocol Stop: 12/07/22 20:20 Glucose (Glucose 10 Tab/Tube) 4 - 8 tab PO UD PRN; Protocol PRN Reason: Hypoglycemia Treatment Stop: 12/07/22 20:20 Glucose (Glucose 40% Gel 15 Gm Tube) 15 - 30 gm PO UD PRN; Protocol PRN Reason: Hypoglycemia Protocol Stop: 12/07/22 20:20 Ertapenem 500 mg/ Syringe 5 mls @ 2 mls/min IV Q24H JULIO CESAR Stop: 11/18/22 08:59 Last Admin: 11/10/22 09:42 Dose: 2 mls/min Insulin Aspart (Insulin Aspart Per Unit) 0 units SC ACHS JULIO CESAR Stop: 12/07/22 20:59 Last Admin: 11/10/22 12:16 Dose: 2 units Levalbuterol HCl (Levalbuterol Tartrate 15 Gm Hfa.Aer.Ad) 1 puffs INH Q4 PRN PRN Reason: Shortness Of Breath Stop: 12/07/22 20:20 Levothyroxine Sodium (Levothyroxine Sodium 150 Mcg Tablet) 150 mcg PO DAILYBB JULIO CESAR Stop: 12/08/22 06:29 Last Admin: 11/10/22 06:14 Dose: 150 mcg Miscellaneous (Carbohydrates For Hypoglycemia ) 15 - 30 gm PO UD PRN PRN Reason: Hypoglycemia Protocol Stop: 12/07/22 20:20 Montelukast Sodium (Montelukast Sodium 10 Mg Tablet) 10 mg PO PM JULIO CESAR Stop: 12/07/22 20:59 Last Admin: 11/09/22 21:43 Dose: 10 mg Pantoprazole Sodium (Pantoprazole 40 Mg Tab) 40 mg PO DAILY JULIO CESAR Stop: 12/08/22 08:59 Last Admin: 11/10/22 08:52 Dose: 40 mg Polyethylene Glycol (Polyethylene (Miralax) 17 Gm Pack) 17 gm PO DAILY PRN PRN Reason: Constipation Stop: 12/07/22 20:20 Sertraline HCl (Sertraline Hcl 100 Mg Tablet) 100 mg PO DAILY JULIO CESAR Stop: 12/08/22 08:59 Last Admin: 11/10/22 08:52 Dose: 100 mg Sotalol HCl (Sotalol Hcl 80 Mg Tab) 40 mg PO BID JULIO CESAR Stop: 12/07/22 20:59 Last Admin: 11/10/22 08:52 Dose: 40 mg Torsemide (Torsemide 10 Mg Tab) 10 mg PO BID@0900,1400 JULIO CESAR Stop: 12/08/22 08:59 Last Admin: 11/10/22 08:51 Dose: 10 mg Umeclidinium/Vilanterol (Umeclidinium/Vilanterol 62.5/25mcg 7 Puffs/Inhaler) 1 puffs INH DAILY JULIO CESAR Stop: 12/08/22 08:59 Last Admin: 11/10/22 09:42 Dose: 1 puffs Vitamin D (Cholecalciferol 1,000 Units 25 Mcg Tab) 4,000 units PO QAM JULIO CESAR Stop: 12/08/22 08:59 Last Admin: 11/10/22 08:51 Dose: 4,000 units
[2022-11-10] MEDS: ALPRAZolam 0.25 MG TABLET PO SCH (20:41)
[2022-11-10] MEDS: MONTELUKAST SODIUM 10 MG TABLET PO SCH (20:43)
[2022-11-10] MEDS: ASPIRIN 81 MG ECTAB PO SCH (20:45)
[2022-11-10] MEDS: allopurinoL 100 MG TAB PO SCH (20:45)
[2022-11-11] MEDS: LEVOTHYROXINE SODIUM 150 MCG TABLET PO SCH (06:31)
[2022-11-11 07:06] LABS: BUN Creatinine Ratio 35.3 (10-20); Calcium 9.5 mg/dl (8.5-10.1); Creatinine Clr Calc Pharmacy 21.2 ml/min; Est GFR (African American) 26.1 ml/min; Est GFR (Non-African American) 22.5 ml/min; Potassium 4.2 mmol/L (3.5-5.1)
[2022-11-11] MEDS: INSULIN ASPART PER UNIT CHARGE SC SCH ×4 (09:06→20:46)
[2022-11-11] MEDS: APIXABAN 2.5 MG TAB PO SCH ×2 (09:09→21:30)
[2022-11-11] MEDS: ATORVASTATIN 20 MG TAB PO SCH (09:11)
[2022-11-11] MEDS: CHOLECALCIFEROL 1,000 UNITS 25 MCG TAB PO SCH (09:11)
[2022-11-11] MEDS: CYANOCOBALAMIN (B-12) 100 MCG TABLET PO SCH (09:12)
[2022-11-11] MEDS: ERTAPENEM SODIUM 500 MG in SYRINGE 0 ML IV SCH (09:13)
[2022-11-11] MEDS: FERROUS SULFATE 325 MG TAB PO SCH (09:14)
[2022-11-11] MEDS: FOLIC ACID 1 MG TAB PO SCH (09:14)
[2022-11-11] MEDS: SERTRALINE HCL 100 MG TABLET PO SCH (09:15)
[2022-11-11] MEDS: PANTOprazole 40 MG TAB PO SCH (09:15)
[2022-11-11] MEDS: SOTALOL HCL 80 MG TAB PO SCH ×2 (09:15→21:31)
[2022-11-11] MEDS: UMECLIDINIUM/VILANTEROL 62.5/25MCG 7 PUFFS/INHALER INH SCH (09:17)
--- NOTE | 2022-11-11 13:36 | Cardiology Progress Note ---
Date of Service November 11, 2022 Assessment & Plan (1) TIA (transient ischemic attack): (2) Paroxysmal atrial fibrillation: (3) Acute on chronic diastolic heart failure: (4) Severe mitral insufficiency: (5) Acute renal insufficiency: Plan Patient is a complex 82-year-old female with known history of paroxysmal atrial fibrillation on antiarrhythmic therapy with sotalol, sick sinus syndrome status post pacemaker, diastolic heart failure secondary to valvular heart disease She presents now with acute decline with possible TIA symptoms now resolved Patient at risk for recurrent CVA given paroxysmal atrial fibrillation X-ray consistent with mild congestive heart failure Recent history of infection with possible urinary tract infection currently 11/10/2022 Possible recurrent TIA yesterday now back on apixaban at appropriate dosing No bleeding No worsening shortness of breath Renal function has declined possibly in conjunction with diuretics as well as acute contrast administration 11/11/2022 Renal function stable Patient anticoagulated appropriately with reduced dose Eliquis secondary to renal insufficiency and age Recommendations: Hold torsemide resumed post discharge Continue other medications as prescribed. Including sotalol, apixaban, aspirin Close follow-up of renal function post release Admission and Anticipated Discharge Date Admission Date: November 07, 2022 Subjective Patient seen and examined, chart, medications, telemetry reviewed. Denies any acute problems overnight though mouth dry when awakening this morning. No dizz iness or lightheadedness. No acute motor strength loss. Speech slightly variable. Blood pressure and heart rate well controlled no arrhythmias. No bleeding issues on anticoagulation Review of Systems Review of Systems: All systems reviewed & are unremarkable except as noted in Subjective Physical Exam Constitutional: WD/WN, vitals as above Eyes: PERRL, conjunctivae normal, anicteric sclerae ENMT: external ear and nose normal, oropharynx normal Neck: trachea midline, no thyromegaly Respiratory: Auscultation: + crackles (Right base) Cardiovascular: Rate/Rhythm: regular rate and regular rhythm Heart Sounds: no murmur Vessels: no JVD Extremities: no edema Gastrointestinal (Abdomen): normal bowel sounds, soft, nontender, no hepat osplenomegaly Results & Data Vital Signs (Past 12 Hours) Vital Signs Temp Pulse Pulse Resp BP Pulse Ox O2 Del Method 11/11/22 11:29 36.3 C L 64 17 101/67 92 Room Air 11/11/22 08:00 63 11/11/22 07:45 36.2 C L 63 16 116/69 92 Room Air 11/11/22 03:10 36.6 C 60 16 109/65 93 CPAP 11/11/22 02:16 63 16 93 FiO2 11/11/22 11:29 11/11/22 08:00 11/11/22 07:45 11/11/22 03:10 11/11/22 02:16 21 Laboratory Results Laboratory Results - last 24 hr 11/10/22 11/10/22 11/11/22 15:59 20:28 05:38 Sodium 137 Potassium 4.2 Chloride 103 Carbon Dioxide 25 Anion Gap 9 BUN 71 H Creatinine 2.01 H Est Cr Clr Drug Dosing 21.2 Est GFR ( Amer) 26.1 Est GFR (Non-Af Amer) 22.5 BUN/Creatinine Ratio 35.3 H Glucose 108 H POC Glucose 126 H 139 H Calcium 9.5 11/11/22 11/11/22 07:51 11:16 Sodium Potassium Chloride Carbon Dioxide Anion Gap BUN Creatinine Est Cr Clr Drug Dosing Est GFR ( Amer) Est GFR (Non-Af Amer) BUN/Creatinine Ratio Glucose POC Glucose 107 H 127 H Calcium
--- NOTE | 2022-11-11 14:26 | Hospitalist Progress Note ---
Date of Service November 11, 2022 Assessment & Plan (1) Stroke-like symptoms: Plan: Transient ischemic attack --MRI Brain:No acute intracranial findings. --Head/Neck CTA:No significant stenosis or occlusion within the [place]. No significant stenosis, occlusion, or dissection identified within the carotid or vertebral arteries. 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 --Head CT:No acute intracranial findings. No change in appearance of the brain. Stroke work up including lipid panel-unremarkable, [id number] elevated at 6.9 Recent ECHO: 10/21/22: Concentric LVH, EF 65%, right ventricle appears to be mildly dilated, right ventricular systolic function is mildly reduced, mild prolapse of anterior mitral valve, severe mitral regurgitation, severe tricuspid regurgitation, dilated IVC with reduced collapsibility, and severe pulmonary hypertension Speech and swallow eval-appreciated speech evaluation Continue aspirin, Lipitor Appreciate neurology input and recommendation-anticoagulation if no current indication otherwise aspirin plus Plavix for 21 days followed by Plavix alone Patient has been started on Eliquis 2.5 mg twice daily by the cardiology PT OT evaluation before discharge Has had minimal tongue swelling this morning likely secondary to another TIA event Reassured and the patient did not have any other neurological deficit on examination Resolved tongue heaviness and numbness and does not have any more neurodeficit in the extremities No motor strokelike symptoms We will get PT and OT evaluation and likely discharge tomorrow with home health nurse-she was denied to go to [facility] Acute on chronic diastolic heart failure CXR showed:Suspected mild pulmonary edema. Cardiomegaly. Last ECHO: As above BNP 1055 Clinically no overt signs of volume overload on exam Received IV Lasix in ED Continue torsemide Daily weight, I/Os, fluid restriction Monitor renal function/electrolytes Cardiology consulted-appreciate input and recommended Received another dose of intravenous Lasix 40 mg We will continue with torsemide 10 mg twice daily as before Remains stable with ongoing diuresis Creatinine remains elevated at more than 2 likely secondary to use of diuretics We will monitor PRP tomorrow and restart torsemide when the level is down Creatinine is improving Abnormal urinalysis Denies any urinary symptoms Urine culture is growing gram-negative bacilli and ertapenem has been started due to allergy to multiple medications and antibiotics Urine is growing Klebsiella erogenous which is pansensitive except nitrofurantoin, ertapenem will be continued as she is allergic to so many antibiotics Will continue current antibiotic for about 5 days in total Finish IV antibiotic before discharge Generalized weakness Ambulatory dysfunction with balance issues Secondary to comorbidities PT OT Fall precautions Sick sinus syndrome S/P pacemaker H/O paroxysmal atrial fibrillation Continue sotalol Not on chronic anticoagulation DM Type II: HbA1C: 6.2 on 08/27/22 Diet controlled ISS per protocol while hospitalized Monitor BGs Recent Ear Infection Completed antibiotic course Follow-up with ENT as outpatient Other chronic conditions Pulmonary hypertension secondary hyperparathyroidism Asthma peripheral vascular disease Hypothyroidism Mnire's disease Obstructive sleep apnea on CPAP Iron deficiency anemia CKD stage III Past tobacco use Continue home medications DVT Px: Heparin SQ Code Status Full Code Admission and Anticipated Discharge Date Admission Date: November 07, 2022 Subjective 11/08/2022 The patient was seen and examined in telemetry unit She was admitted with strokelike symptoms and those have been resolved Denies any more strokelike symptoms Denies any chest pain or palpitation and no shortness of breath 11/09/2022 The patient was seen and examined in telemetry unit She has had some tongue swelling this morning with some problem with speech No problem with swallowing and she did not have any other neurodeficit associated with it Denies any chest pain or palpitation and no shortness of breath at rest 11/10/2022 The patient was seen and examined in telemetry unit She denies any more tongue swelling and or numbness Does not have any symptoms of stroke and/or new symptoms of stroke Generally feeling a lot better 11/11/2022 The patient was seen and examined in telemetry unit She has been feeling a lot better without any evidence of further neurodeficit She has been [facility] Likely to go to go home with home health We will get PT and OT evaluation Review of Systems Review of Systems: All systems reviewed and are unremarkable except as noted below Physical Exam Physical Exam: Lying in bed comfortably Constitutional: well developed, well nourished and + obese; not ill appearing Eyes: PERRL, conjunctivae normal, anicteric sclerae ENMT: external ear and nose normal, oropharynx normal Neck: trachea midline, no thyromegaly Respiratory: no respiratory distress Auscultation: + diminished lung sounds and + crackles (Minimal crackles at the bases) Cardiovascular: Rate/Rhythm: regular rate and regular rhythm; not tachycardic Heart Sounds: normal S1, normal S2 and + murmur Extremities: + edema (Trace edema bilaterally) Gastrointestinal (Abdomen): Inspection/Auscultation: normal bowel sounds; abdomen not distended Percussion/Palpation: abdomen soft; abdomen nontender Neurologic: normal touch/pain/proprioception and moves all extremities; no focal motor deficits Psychiatric: A+Ox3, euthymic affect Lymphatic: no cervical or axillary lymphadenopathy Results & Data Results & Data Vital Signs (Past 12 Hours) Vital Signs Temp Pulse Pulse Resp BP Pulse Ox O2 Del Method 11/11/22 11:29 36.3 C L 64 17 101/67 92 Room Air 11/11/22 08:00 63 11/11/22 07:45 36.2 C L 63 16 116/69 92 Room Air 11/11/22 03:10 36.6 C 60 16 109/65 93 CPAP Laboratory Results BMP 11/11/22 05:38 Sodium 137 Potassium 4.2 Chloride 103 Carbon Dioxide 25 BUN 71 H Creatinine 2.01 H Glucose 108 H Calcium 9.5 Medications Administered Current Inpatient Medications Acetaminophen (Acetaminophen 325 Mg Tab) 650 mg PO Q4H PRN PRN Reason: Pain or Fever Stop: 12/07/22 20:20 Allopurinol (Allopurinol 100 Mg Tab) 200 mg PO HS JULIO CESAR Stop: 12/07/22 20:59 Last Admin: 11/10/22 20:45 Dose: 200 mg Alprazolam (Alprazolam 0.25 Mg Tablet) 0.25 mg PO HS JULIO CESAR Stop: 12/07/22 20:59 Last Admin: 11/10/22 20:41 Dose: 0.25 mg Apixaban (Apixaban 2.5 Mg Tab) 2.5 mg PO BID JULIO CESAR Stop: 12/08/22 20:59 Last Admin: 11/11/22 09:09 Dose: 2.5 mg Aspirin (Aspirin 81 Mg Ectab) 81 mg PO HS JULIO CESAR Stop: 12/07/22 20:59 Last Admin: 11/10/22 20:45 Dose: 81 mg Atorvastatin Calcium (Atorvastatin 20 Mg Tab) 20 mg PO QAM JULIO CESAR Stop: 12/08/22 08:59 Last Admin: 11/11/22 09:11 Dose: 20 mg Cyanocobalamin (Cyanocobalamin (B-12) 100 Mcg Tablet) 100 mcg PO DAILY JULIO CESAR Stop: 12/08/22 08:59 Last Admin: 11/11/22 09:12 Dose: 100 mcg Dextrose (Dextrose 50% 50 Ml Syringe) 25 - 50 ml IV UD PRN; Protocol PRN Reason: Hypoglycemia Protocol Stop: 12/07/22 20:20 Ferrous Sulfate (Ferrous Sulfate 325 Mg Tab) 325 mg PO DAILY JULIO CESAR Stop: 12/08/22 08:59 Last Admin: 11/11/22 09:14 Dose: 325 mg Folic Acid (Folic Acid 1 Mg Tab) 1 mg PO DAILY JULIO CESAR Stop: 12/08/22 08:59 Last Admin: 11/11/22 09:14 Dose: 1 mg Glucagon (Glucagon For Inj 1 Mg Vial) 1 mg SQ UD PRN; Protocol PRN Reason: Hypoglycemia Protocol Stop: 12/07/22 20:20 Glucose (Glucose 10 Tab/Tube) 4 - 8 tab PO UD PRN; Protocol PRN Reason: Hypoglycemia Treatment Stop: 12/07/22 20:20 Glucose (Glucose 40% Gel 15 Gm Tube) 15 - 30 gm PO UD PRN; Protocol PRN Reason: Hypoglycemia Protocol Stop: 12/07/22 20:20 Ertapenem 500 mg/ Syringe 5 mls @ 2 mls/min IV Q24H JULIO CESAR Stop: 11/18/22 08:59 Last Admin: 11/11/22 09:13 Dose: 2 mls/min Insulin Aspart (Insulin Aspart Per Unit) 0 units SC ACHS JULIO CESAR Stop: 12/07/22 20:59 Last Admin: 11/11/22 12:07 Dose: 1 units Levalbuterol HCl (Levalbuterol Tartrate 15 Gm Hfa.Aer.Ad) 1 puffs INH Q4 PRN PRN Reason: Shortness Of Breath Stop: 12/07/22 20:20 Levothyroxine Sodium (Levothyroxine Sodium 150 Mcg Tablet) 150 mcg PO DAILYBB JULIO CESAR Stop: 12/08/22 06:29 Last Admin: 11/11/22 06:31 Dose: 150 mcg Miscellaneous (Carbohydrates For Hypoglycemia ) 15 - 30 gm PO UD PRN PRN Reason: Hypoglycemia Protocol Stop: 12/07/22 20:20 Montelukast Sodium (Montelukast Sodium 10 Mg Tablet) 10 mg PO PM JULIO CESAR Stop: 12/07/22 20:59 Last Admin: 11/10/22 20:43 Dose: 10 mg Pantoprazole Sodium (Pantoprazole 40 Mg Tab) 40 mg PO DAILY JULIO CESAR Stop: 12/08/22 08:59 Last Admin: 11/11/22 09:15 Dose: 40 mg Polyethylene Glycol (Polyethylene (Miralax) 17 Gm Pack) 17 gm PO DAILY PRN PRN Reason: Constipation Stop: 12/07/22 20:20 Sertraline HCl (Sertraline Hcl 100 Mg Tablet) 100 mg PO DAILY JULIO CESAR Stop: 12/08/22 08:59 Last Admin: 11/11/22 09:15 Dose: 100 mg Sotalol HCl (Sotalol Hcl 80 Mg Tab) 40 mg PO BID JULIO CESAR Stop: 12/07/22 20:59 Last Admin: 11/11/22 09:15 Dose: 40 mg Torsemide (Torsemide 10 Mg Tab) 10 mg PO BID@0900,1400 JULIO CESAR Stop: 12/08/22 08:59 Last Admin: 11/10/22 08:51 Dose: 10 mg Umeclidinium/Vilanterol (Umeclidinium/Vilanterol 62.5/25mcg 7 Puffs/Inhaler) 1 puffs INH DAILY JULIO CESAR Stop: 12/08/22 08:59 Last Admin: 11/11/22 09:17 Dose: 1 puffs Vitamin D (Cholecalciferol 1,000 Units 25 Mcg Tab) 4,000 units PO QAM JULIO CESAR Stop: 12/08/22 08:59 Last Admin: 11/11/22 09:11 Dose: 4,000 units
[2022-11-11] MEDS: allopurinoL 100 MG TAB PO SCH (21:30)
[2022-11-11] MEDS: MONTELUKAST SODIUM 10 MG TABLET PO SCH (21:30)
[2022-11-11] MEDS: ASPIRIN 81 MG ECTAB PO SCH (21:32)
[2022-11-11] MEDS: ALPRAZolam 0.25 MG TABLET PO SCH (21:32)
[2022-11-12] MEDS: LEVOTHYROXINE SODIUM 150 MCG TABLET PO SCH (05:56)
[2022-11-12 07:33] LABS: BUN Creatinine Ratio 39.8 (10-20); Calcium 9.6 mg/dl (8.5-10.1); Creatinine Clr Calc Pharmacy 24.9 ml/min; Est GFR (African American) 31.8 ml/min; Est GFR (Non-African American) 27.4 ml/min; Magnesium 2.5 mg/dl (1.7-2.4); Potassium 4.1 mmol/L (3.5-5.1)
[2022-11-12] MEDS: INSULIN ASPART PER UNIT CHARGE SC SCH ×4 (08:09→22:06)
[2022-11-12] MEDS: CHOLECALCIFEROL 1,000 UNITS 25 MCG TAB PO SCH (08:10)
[2022-11-12] MEDS: SOTALOL HCL 80 MG TAB PO SCH ×2 (08:10→21:58)
[2022-11-12] MEDS: PANTOprazole 40 MG TAB PO SCH (08:10)
[2022-11-12] MEDS: CYANOCOBALAMIN (B-12) 100 MCG TABLET PO SCH (08:10)
[2022-11-12] MEDS: ATORVASTATIN 20 MG TAB PO SCH (08:11)
[2022-11-12] MEDS: APIXABAN 2.5 MG TAB PO SCH ×2 (08:11→21:59)
[2022-11-12] MEDS: SERTRALINE HCL 100 MG TABLET PO SCH (08:11)
[2022-11-12] MEDS: FOLIC ACID 1 MG TAB PO SCH (08:11)
[2022-11-12] MEDS: FERROUS SULFATE 325 MG TAB PO SCH (08:11)
[2022-11-12] MEDS: UMECLIDINIUM/VILANTEROL 62.5/25MCG 7 PUFFS/INHALER INH SCH (08:11)
[2022-11-12] MEDS: ERTAPENEM SODIUM 500 MG in SYRINGE 0 ML IV SCH (08:16)
--- NOTE | 2022-11-12 14:38 | Cardiology Progress Note ---
Date of Service November 12, 2022 Assessment & Plan (1) TIA (transient ischemic attack): (2) Paroxysmal atrial fibrillation: (3) Acute on chronic diastolic heart failure: (4) Severe mitral insufficiency: (5) Acute renal insufficiency: Plan Patient is a complex 82-year-old female with known history of paroxysmal atrial fibrillation on antiarrhythmic therapy with sotalol, sick sinus syndrome status post pacemaker, diastolic heart failure secondary to valvular heart disease She presents now with acute decline with possible TIA symptoms now resolved Patient at risk for recurrent CVA given paroxysmal atrial fibrillation X-ray consistent with mild congestive heart failure Recent history of infection with possible urinary tract infection currently 11/12/2022 Continues to improve. No difficulties with current anticoagulation with apixaban. Continue reduced dose as appropriate Renal function improved no signs of volume overload on exam Resume torsemide on discharge Continue current sotalol dose Admission and Anticipated Discharge Date Admission Date: November 07, 2022 Subjective Patient seen and examined, chart, medications, telemetry reviewed. Feels comfortable this morning, breathing stable. No bleeding difficulties., Renal function improving. No dizziness or lightheadedness Physical Exam Constitutional: WD/WN, vitals as above Eyes: PERRL, conjunctivae normal, anicteric sclerae ENMT: external ear and nose normal, oropharynx normal Neck: trachea midline, no thyromegaly Respiratory: normal respiratory effort, lungs clear to auscultation Cardiovascular: Rate/Rhythm: regular rate and regular rhythm Heart Sounds: no murmur Vessels: no JVD Extremities: no edema Gastrointestinal (Abdomen): normal bowel sounds, soft, nontender, no hepatosplenomegaly Results & Data Vital Signs (Past 12 Hours) Vital Signs Temp Pulse Pulse Resp BP Pulse Ox O2 Del Method 11/12/22 11:17 36.4 C L 63 16 109/65 95 Room Air 11/12/22 07:45 63 11/12/22 07:59 36.4 C L 59 L 18 100/60 90 Room Air 11/12/22 04:01 36.8 C 60 18 104/60 94 CPAP 11/12/22 03:26 62 21 95 FiO2 11/12/22 11:17 11/12/22 07:45 11/12/22 07:59 11/12/22 04:01 11/12/22 03:26 21 Laboratory Results Laboratory Results - last 24 hr 11/11/22 11/11/22 11/12/22 16:46 20:40 06:35 Sodium 137 Potassium 4.1 Chloride 104 Carbon Dioxide 24 Anion Gap 9 BUN 68 H Creatinine 1.71 H D Est Cr Clr Drug Dosing 24.9 Est GFR ( Amer) 31.8 Est GFR (Non-Af Amer) 27.4 BUN/Creatinine Ratio 39.8 H Glucose 107 H POC Glucose 110 H 126 H Calcium 9.6 Magnesium 2.5 H 11/12/22 11/12/22 07:19 11:28 Sodium Potassium Chloride Carbon Dioxide Anion Gap BUN Creatinine Est Cr Clr Drug Dosing Est GFR ( Amer) Est GFR (Non-Af Amer) BUN/Creatinine Ratio Glucose POC Glucose 117 H 135 H Calcium Magnesium
--- NOTE | 2022-11-12 15:08 | Hospitalist Progress Note ---
Date of Service November 12, 2022 Assessment & Plan (1) Stroke-like symptoms: Plan: Transient ischemic attack --MRI Brain:No acute intracranial findings. --Head/Neck CTA:No significant stenosis or occlusion within the [place]. No significant stenosis, occlusion, or dissection identified within the carotid or vertebral arteries. 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 --Head CT:No acute intracranial findings. No change in appearance of the brain. Stroke work up including lipid panel-unremarkable, [id number] elevated at 6.9 Recent ECHO: 10/21/22: Concentric LVH, EF 65%, right ventricle appears to be mildly dilated, right ventricular systolic function is mildly reduced, mild prolapse of anterior mitral valve, severe mitral regurgitation, severe tricuspid regurgitation, dilated IVC with reduced collapsibility, and severe pulmonary hypertension Speech and swallow eval-appreciated speech evaluation Continue aspirin, Lipitor Appreciate neurology input and recommendation-anticoagulation if no current indication otherwise aspirin plus Plavix for 21 days followed by Plavix alone Patient has been started on Eliquis 2.5 mg twice daily by the cardiology PT OT evaluation before discharge Has had minimal tongue swelling this morning likely secondary to another TIA event Reassured and the patient did not have any other neurological deficit on examination Resolved tongue heaviness and numbness and does not have any more neurodeficit in the extremities No motor strokelike symptoms We will get PT and OT evaluation and likely discharge tomorrow with home health nurse-she was denied to go to [facility] Awaiting authorization from [facility]-Peer to Peer advised but did not have time to go through If denied to [facility] the patient will be going home with [facility] Family will provide transport tomorrow Acute on chronic diastolic heart failure CXR showed:Suspected mild pulmonary edema. Cardiomegaly. Last ECHO: As above BNP 1055 Clinically no overt signs of volume overload on exam Received IV Lasix in ED Continue torsemide Daily weight, I/Os, fluid restriction Monitor renal function/electrolytes Cardiology consulted-appreciate input and recommended Received another dose of intravenous Lasix 40 mg We will continue with torsemide 10 mg twice daily as before Remains stable with ongoing diuresis Creatinine remains elevated at more than 2 likely secondary to use of diuretics We will monitor PRP tomorrow and restart torsemide when the level is down Creatinine is improving Will restart furosemide/torsemide on discharge Abnormal urinalysis Denies any urinary symptoms Urine culture is growing gram-negative bacilli and ertapenem has been started due to allergy to multiple medications and antibiotics Urine is growing Klebsiella erogenous which is pansensitive except nitrofurantoin, ertapenem will be continued as she is allergic to so many antibiotics Will continue current antibiotic for about 5 days in total Finish IV antibiotic before discharge Antibiotic course will be finished tomorrow Generalized weakness Ambulatory dysfunction with balance issues Secondary to comorbidities PT OT Fall precautions Sick sinus syndrome S/P pacemaker H/O paroxysmal atrial fibrillation Continue sotalol Not on chronic anticoagulation DM Type II: HbA1C: 6.2 on 08/27/22 Diet controlled ISS per protocol while hospitalized Monitor BGs Recent Ear Infection Completed antibiotic course Follow-up with ENT as outpatient Other chronic conditions Pulmonary hypertension secondary hyperparathyroidism Asthma peripheral vascular disease Hypothyroidism Mnire's disease Obstructive sleep apnea on CPAP Iron deficiency anemia CKD stage III Past tobacco use Continue home medications DVT Px: Heparin SQ Code Status Full Code Admission and Anticipated Discharge Date Admission Date: November 07, 2022 Subjective 11/08/2022 The patient was seen and examined in telemetry unit She was admitted with strokelike symptoms and those have been resolved Denies any more strokelike symptoms Denies any chest pain or palpitation and no shortness of breath 11/09/2022 The patient was seen and examined in telemetry unit She has had some tongue swelling this morning with some problem with speech No problem with swallowing and she did not have any other neurodeficit associated with it Denies any chest pain or palpitation and no shortness of breath at rest 11/10/2022 The patient was seen and examined in telemetry unit She denies any more tongue swelling and or numbness Does not have any symptoms of stroke and/or new symptoms of stroke Generally feeling a lot better 11/11/2022 The patient was seen and examined in telemetry unit She has been feeling a lot better without any evidence of further neurodeficit She has been denied to go to [facility] Likely to go to go home with home health We will get PT and OT evaluation 11/12/2022 The patient was seen and examined in telemetry unit She has been feeling much better and denies any new neuro symptoms Her breathing remains stable Awaiting placement Review of Systems Review of Systems: All systems reviewed and are unremarkable except as noted below Cardiovascular: Additional Comments: No chest pain and/or palpitation or shortness of breath Physical Exam Physical Exam: Lying in bed comfortably Constitutional: well developed, well nourished and + obese; not ill appearing Eyes: PERRL, conjunctivae normal, anicteric sclerae ENMT: external ear and nose normal, oropharynx normal Neck: trachea midline, no thyromegaly Respiratory: no respiratory distress Auscultation: + diminished lung sounds and + crackles (Minimal crackles at the bases) Cardiovascular: Rate/Rhythm: regular rate and regular rhythm; not tachycardic Heart Sounds: normal S1, normal S2 and + murmur Extremities: + edema (Trace edema bilaterally) Gastrointestinal (Abdomen): Inspection/Auscultation: normal bowel sounds; abdomen not distended Percussion/Palpation: abdomen soft; abdomen nontender Musculoskeletal: No acute arthritis involving any joint Neurologic: normal touch/pain/proprioception and moves all extremities; no focal motor deficits Psychiatric: A+Ox3, euthymic affect Lymphatic: no cervical or axillary lymphadenopathy Results & Data Results & Data Vital Signs (Past 12 Hours) Vital Signs Temp Pulse Pulse Resp BP Pulse Ox O2 Del Method 11/12/22 11:17 36.4 C L 63 16 109/65 95 Room Air 11/12/22 07:45 63 11/12/22 07:59 36.4 C L 59 L 18 100/60 90 Room Air 11/12/22 04:01 36.8 C 60 18 104/60 94 CPAP 11/12/22 03:26 62 21 95 FiO2 11/12/22 11:17 11/12/22 07:45 11/12/22 07:59 11/12/22 04:01 11/12/22 03:26 21 Laboratory Results [facility] 11/12/22 06:35 Sodium 137 Potassium 4.1 Chloride 104 Carbon Dioxide 24 BUN 68 H Creatinine 1.71 H D Glucose 107 H Calcium 9.6 Medications Administered Current Inpatient Medications Acetaminophen (Acetaminophen 325 Mg Tab) 650 mg PO Q4H PRN PRN Reason: Pain or Fever Stop: 12/07/22 20:20 Allopurinol (Allopurinol 100 Mg Tab) 200 mg PO HS JULIO CESAR Stop: 12/07/22 20:59 Last Admin: 11/11/22 21:30 Dose: 200 mg Alprazolam (Alprazolam 0.25 Mg Tablet) 0.25 mg PO HS JULIO CESAR Stop: 12/07/22 20:59 Last Admin: 11/11/22 21:32 Dose: 0.25 mg Apixaban (Apixaban 2.5 Mg Tab) 2.5 mg PO BID JULIO CESAR Stop: 12/08/22 20:59 Last Admin: 11/12/22 08:11 Dose: 2.5 mg Aspirin (Aspirin 81 Mg Ectab) 81 mg PO HS JULIO CESAR Stop: 12/07/22 20:59 Last Admin: 11/11/22 21:32 Dose: 81 mg Atorvastatin Calcium (Atorvastatin 20 Mg Tab) 20 mg PO QAM JULIO CESAR Stop: 12/08/22 08:59 Last Admin: 11/12/22 08:11 Dose: 20 mg Cyanocobalamin (Cyanocobalamin (B-12) 100 Mcg Tablet) 100 mcg PO DAILY JULIO CESAR Stop: 12/08/22 08:59 Last Admin: 11/12/22 08:10 Dose: 100 mcg Dextrose (Dextrose 50% 50 Ml Syringe) 25 - 50 ml IV UD PRN; Protocol PRN Reason: Hypoglycemia Protocol Stop: 12/07/22 20:20 Ferrous Sulfate (Ferrous Sulfate 325 Mg Tab) 325 mg PO DAILY JULIO CESAR Stop: 12/08/22 08:59 Last Admin: 11/12/22 08:11 Dose: 325 mg Folic Acid (Folic Acid 1 Mg Tab) 1 mg PO DAILY JULIO CESAR Stop: 12/08/22 08:59 Last Admin: 11/12/22 08:11 Dose: 1 mg Glucagon (Glucagon For Inj 1 Mg Vial) 1 mg SQ UD PRN; Protocol PRN Reason: Hypoglycemia Protocol Stop: 12/07/22 20:20 Glucose (Glucose 10 Tab/Tube) 4 - 8 tab PO UD PRN; Protocol PRN Reason: Hypoglycemia Treatment Stop: 12/07/22 20:20 Glucose (Glucose 40% Gel 15 Gm Tube) 15 - 30 gm PO UD PRN; Protocol PRN Reason: Hypoglycemia Protocol Stop: 12/07/22 20:20 Ertapenem 500 mg/ Syringe 5 mls @ 2 mls/min IV Q24H JULIO CESAR Stop: 11/18/22 08:59 Last Admin: 11/12/22 08:16 Dose: 2 mls/min Insulin Aspart (Insulin Aspart Per Unit) 0 units SC ACHS JULIO CESAR Stop: 12/07/22 20:59 Last Admin: 11/12/22 12:26 Dose: 1 units Levalbuterol HCl (Levalbuterol Tartrate 15 Gm Hfa.Aer.Ad) 1 puffs INH Q4 PRN PRN Reason: Shortness Of Breath Stop: 12/07/22 20:20 Levothyroxine Sodium (Levothyroxine Sodium 150 Mcg Tablet) 150 mcg PO DAILYBB JULIO CESAR Stop: 12/08/22 06:29 Last Admin: 11/12/22 05:56 Dose: 150 mcg Miscellaneous (Carbohydrates For Hypoglycemia ) 15 - 30 gm PO UD PRN PRN Reason: Hypoglycemia Protocol Stop: 12/07/22 20:20 Montelukast Sodium (Montelukast Sodium 10 Mg Tablet) 10 mg PO PM JULIO CESAR Stop: 12/07/22 20:59 Last Admin: 11/11/22 21:30 Dose: 10 mg Pantoprazole Sodium (Pantoprazole 40 Mg Tab) 40 mg PO DAILY JULIO CESAR Stop: 12/08/22 08:59 Last Admin: 11/12/22 08:10 Dose: 40 mg Polyethylene Glycol (Polyethylene (Miralax) 17 Gm Pack) 17 gm PO DAILY PRN PRN Reason: Constipation Stop: 12/07/22 20:20 Sertraline HCl (Sertraline Hcl 100 Mg Tablet) 100 mg PO DAILY JULIO CESAR Stop: 12/08/22 08:59 Last Admin: 11/12/22 08:11 Dose: 100 mg Sotalol HCl (Sotalol Hcl 80 Mg Tab) 40 mg PO BID JULIO CESAR Stop: 12/07/22 20:59 Last Admin: 11/12/22 08:10 Dose: 40 mg Torsemide (Torsemide 10 Mg Tab) 10 mg PO BID@0900,1400 JULIO CESAR Stop: 12/08/22 08:59 Last Admin: 11/10/22 08:51 Dose: 10 mg Umeclidinium/Vilanterol (Umeclidinium/Vilanterol 62.5/25mcg 7 Puffs/Inhaler) 1 puffs INH DAILY JULIO CESAR Stop: 12/08/22 08:59 Last Admin: 11/12/22 08:11 Dose: 1 puffs Vitamin D (Cholecalciferol 1,000 Units 25 Mcg Tab) 4,000 units PO QAM JULIO CESAR Stop: 12/08/22 08:59 Last Admin: 11/12/22 08:10 Dose: 4,000 units
[2022-11-12] MEDS: ASPIRIN 81 MG ECTAB PO SCH (21:59)
[2022-11-12] MEDS: MONTELUKAST SODIUM 10 MG TABLET PO SCH (21:59)
[2022-11-12] MEDS: allopurinoL 100 MG TAB PO SCH (21:59)
[2022-11-12] MEDS: ALPRAZolam 0.25 MG TABLET PO SCH (21:59)
[2022-11-13] MEDS: LEVOTHYROXINE SODIUM 150 MCG TABLET PO SCH (06:33)
[2022-11-13 07:37] LABS: BUN Creatinine Ratio 41.2 (10-20); Calcium 9.2 mg/dl (8.5-10.1); Creatinine Clr Calc Pharmacy 27.3 ml/min; Est GFR (African American) 36.3 ml/min; Est GFR (Non-African American) 31.4 ml/min; Magnesium 2.4 mg/dl (1.7-2.4); Potassium 4.4 mmol/L (3.5-5.1)
[2022-11-13] MEDS: INSULIN ASPART PER UNIT CHARGE SC SCH ×2 (08:47→13:34)
[2022-11-13] MEDS: CHOLECALCIFEROL 1,000 UNITS 25 MCG TAB PO SCH (08:48)
[2022-11-13] MEDS: ATORVASTATIN 20 MG TAB PO SCH (08:48)
[2022-11-13] MEDS: UMECLIDINIUM/VILANTEROL 62.5/25MCG 7 PUFFS/INHALER INH SCH (08:48)
[2022-11-13] MEDS: PANTOprazole 40 MG TAB PO SCH (08:48)
[2022-11-13] MEDS: APIXABAN 2.5 MG TAB PO SCH (08:49)
[2022-11-13] MEDS: FERROUS SULFATE 325 MG TAB PO SCH (08:49)
[2022-11-13] MEDS: SOTALOL HCL 80 MG TAB PO SCH (08:49)
[2022-11-13] MEDS: CYANOCOBALAMIN (B-12) 100 MCG TABLET PO SCH (08:49)
[2022-11-13] MEDS: FOLIC ACID 1 MG TAB PO SCH (08:49)
[2022-11-13] MEDS: SERTRALINE HCL 100 MG TABLET PO SCH (08:49)
[2022-11-13] MEDS: ERTAPENEM SODIUM 500 MG in SYRINGE 0 ML IV SCH (08:56)
--- NOTE | 2022-11-13 11:37 | Hospitalist Progress Note ---
Date of Service November 13, 2022 Assessment & Plan (1) Stroke-like symptoms: Plan: Transient ischemic attack --MRI Brain:No acute intracranial findings. --Head/Neck CTA:No significant stenosis or occlusion within the [place]. No significant stenosis, occlusion, or dissection identified within the carotid or vertebral arteries. 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 --Head CT:No acute intracranial findings. No change in appearance of the brain. Stroke work up including lipid panel-unremarkable, [id number] elevated at 6.9 Recent ECHO: 10/21/22: Concentric LVH, EF 65%, right ventricle appears to be mildly dilated, right ventricular systolic function is mildly reduced, mild prolapse of anterior mitral valve, severe mitral regurgitation, severe tricuspid regurgitation, dilated IVC with reduced collapsibility, and severe pulmonary hypertension Speech and swallow eval-appreciated speech evaluation Continue aspirin, Lipitor Appreciate neurology input and recommendation-anticoagulation if no current indication otherwise aspirin plus Plavix for 21 days followed by Plavix alone Patient has been started on Eliquis 2.5 mg twice daily by the cardiology PT OT evaluation before discharge Has had minimal tongue swelling this morning likely secondary to another TIA event Reassured and the patient did not have any other neurological deficit on examination Resolved tongue heaviness and numbness and does not have any more neurodeficit in the extremities No motor strokelike symptoms We will get PT and OT evaluation and likely discharge tomorrow with home health nurse-she was denied to go to [facility] Awaiting authorization from [facility]-Peer to Peer advised but did not have time to go through She was denied to go to [facility]-to be discharged home with home health Remains medically stable without any more neurological symptoms Discussed with the daughter and the patient will be discharged in the afternoon Acute on chronic diastolic heart failure CXR showed:Suspected mild pulmonary edema. Cardiomegaly. Last ECHO: As above BNP 1055 Clinically no overt signs of volume overload on exam Received IV Lasix in ED Continue torsemide Daily weight, I/Os, fluid restriction Monitor renal function/electrolytes Cardiology consulted-appreciate input and recommended Received another dose of intravenous Lasix 40 mg We will continue with torsemide 10 mg twice daily as before Remains stable with ongoing diuresis Creatinine remains elevated at more than 2 likely secondary to use of diuretics We will monitor PRP tomorrow and restart torsemide when the level is down Creatinine is improving Will restart furosemide/torsemide on discharge Creatinine has improved to 1.53 seems to be around her baseline Abnormal urinalysis Denies any urinary symptoms Urine culture is growing gram-negative bacilli and ertapenem has been started due to allergy to multiple medications and antibiotics Urine is growing Klebsiella erogenous which is pansensitive except nitrofurantoin, ertapenem will be continued as she is allergic to so many antibiotics Will continue current antibiotic for about 5 days in total Finish IV antibiotic before discharge Antibiotic course will be finished tomorrow Antibiotic course will be done today Generalized weakness Ambulatory dysfunction with balance issues Secondary to comorbidities PT OT Fall precautions Sick sinus syndrome S/P pacemaker H/O paroxysmal atrial fibrillation Continue sotalol Not on chronic anticoagulation DM Type II: HbA1C: 6.2 on 08/27/22 Diet controlled ISS per protocol while hospitalized Monitor BGs Recent Ear Infection Completed antibiotic course Follow-up with ENT as outpatient Other chronic conditions Pulmonary hypertension secondary hyperparathyroidism Asthma peripheral vascular disease Hypothyroidism Mnire's disease Obstructive sleep apnea on CPAP Iron deficiency anemia CKD stage III Past tobacco use Continue home medications DVT Px: Eliquis 2.5 mg twice daily Code Status Full Code She will be discharged home this afternoon with home health Admission and Anticipated Discharge Date Admission Date: November 07, 2022 Subjective 11/08/2022 The patient was seen and examined in telemetry unit She was admitted with strokelike symptoms and those have been resolved Denies any more strokelike symptoms Denies any chest pain or palpitation and no shortness of breath 11/09/2022 The patient was seen and examined in telemetry unit She has had some tongue swelling this morning with some problem with speech No problem with swallowing and she did not have any other neurodeficit associated with it Denies any chest pain or palpitation and no shortness of breath at rest 11/10/2022 The patient was seen and examined in telemetry unit She denies any more tongue swelling and or numbness Does not have any symptoms of stroke and/or new symptoms of stroke Generally feeling a lot better 11/11/2022 The patient was seen and examined in telemetry unit She has been feeling a lot better without any evidence of further neurodeficit She has been denied to go to [facility] Likely to go to go home with home health We will get PT and OT evaluation 11/12/2022 The patient was seen and examined in telemetry unit She has been feeling much better and denies any new neuro symptoms Her breathing remains stable Awaiting placement 11/13/2022 The patient was seen and examined in telemetry unit She has been stable and denies any neuro symptoms No signs and or symptoms of fluid overload She was denied to go to [facility] She will be discharged home this afternoon Review of Systems Review of Systems: All systems reviewed and are unremarkable except as noted below Cardiovascular: Additional Comments: No chest pain and/or palpitation or shortness of breath Physical Exam Physical Exam: Lying in bed comfortably Constitutional: well developed, well nourished and + obese; not ill appearing Eyes: PERRL, conjunctivae normal, anicteric sclerae ENMT: external ear and nose normal, oropharynx normal Neck: trachea midline, no thyromegaly Respiratory: no respiratory distress Auscultation: + diminished lung sounds and + crackles (Minimal crackles at the bases) Cardiovascular: Rate/Rhythm: regular rate and regular rhythm; not tachycardic Heart Sounds: normal S1, normal S2 and + murmur Extremities: + edema (Trace edema bilaterally) Gastrointestinal (Abdomen): Inspection/Auscultation: normal bowel sounds; abdomen not distended Percussion/Palpation: abdomen soft; abdomen nontender Musculoskeletal: No acute arthritis involving any joint Neurologic: normal touch/pain/proprioception and moves all extremities; no focal motor deficits Psychiatric: A+Ox3, euthymic affect Lymphatic: no cervical or axillary lymphadenopathy Results & Data Results & Data Vital Signs (Past 12 Hours) Vital Signs Temp Pulse Pulse Resp BP BP Pulse Ox 11/13/22 11:06 36.6 C 65 18 100/63 93 11/13/22 07:10 36.4 C L 65 17 109/66 91 11/13/22 03:04 36.5 C 65 21 110/66 91 11/13/22 02:34 70 95 H 25 L 11/12/22 23:31 63 20 93 O2 Del Method FiO2 11/13/22 11:06 Room Air 11/13/22 07:10 Room Air 11/13/22 03:04 CPAP 11/13/22 02:34 21 11/12/22 23:31 21 Laboratory Results BMP 11/13/22 06:01 Sodium 137 Potassium 4.4 Chloride 106 Carbon Dioxide 23 BUN 63 H Creatinine 1.53 H Glucose 108 H Calcium 9.2 Medications Administered Current Inpatient Medications Acetaminophen (Acetaminophen 325 Mg Tab) 650 mg PO Q4H PRN PRN Reason: Pain or Fever Stop: 12/07/22 20:20 Allopurinol (Allopurinol 100 Mg Tab) 200 mg PO HS JULIO CESAR Stop: 12/07/22 20:59 Last Admin: 11/12/22 21:59 Dose: 200 mg Alprazolam (Alprazolam 0.25 Mg Tablet) 0.25 mg PO HS JULIO CESAR Stop: 12/07/22 20:59 Last Admin: 11/12/22 21:59 Dose: 0.25 mg Apixaban (Apixaban 2.5 Mg Tab) 2.5 mg PO BID JULIO CESAR Stop: 12/08/22 20:59 Last Admin: 11/13/22 08:49 Dose: 2.5 mg Aspirin (Aspirin 81 Mg Ectab) 81 mg PO HS JULIO CESAR Stop: 12/07/22 20:59 Last Admin: 11/12/22 21:59 Dose: 81 mg Atorvastatin Calcium (Atorvastatin 20 Mg Tab) 20 mg PO QAM JULIO CESAR Stop: 12/08/22 08:59 Last Admin: 11/13/22 08:48 Dose: 20 mg Cyanocobalamin (Cyanocobalamin (B-12) 100 Mcg Tablet) 100 mcg PO DAILY JULIO CESAR Stop: 12/08/22 08:59 Last Admin: 11/13/22 08:49 Dose: 100 mcg Dextrose (Dextrose 50% 50 Ml Syringe) 25 - 50 ml IV UD PRN; Protocol PRN Reason: Hypoglycemia Protocol Stop: 12/07/22 20:20 Ferrous Sulfate (Ferrous Sulfate 325 Mg Tab) 325 mg PO DAILY JULIO CESAR Stop: 12/08/22 08:59 Last Admin: 11/13/22 08:49 Dose: 325 mg Folic Acid (Folic Acid 1 Mg Tab) 1 mg PO DAILY JULIO CESAR Stop: 12/08/22 08:59 Last Admin: 11/13/22 08:49 Dose: 1 mg Glucagon (Glucagon For Inj 1 Mg Vial) 1 mg SQ UD PRN; Protocol PRN Reason: Hypoglycemia Protocol Stop: 12/07/22 20:20 Glucose (Glucose 10 Tab/Tube) 4 - 8 tab PO UD PRN; Protocol PRN Reason: Hypoglycemia Treatment Stop: 12/07/22 20:20 Glucose (Glucose 40% Gel 15 Gm Tube) 15 - 30 gm PO UD PRN; Protocol PRN Reason: Hypoglycemia Protocol Stop: 12/07/22 20:20 Ertapenem 500 mg/ Syringe 5 mls @ 2 mls/min IV Q24H JULIO CESAR Stop: 11/18/22 08:59 Last Admin: 11/13/22 08:56 Dose: 2 mls/min Insulin Aspart (Insulin Aspart Per Unit) 0 units SC ACHS JULIO CESAR Stop: 12/07/22 20:59 Last Admin: 11/13/22 08:47 Dose: Not Given Levalbuterol HCl (Levalbuterol Tartrate 15 Gm Hfa.Aer.Ad) 1 puffs INH Q4 PRN PRN Reason: Shortness Of Breath Stop: 12/07/22 20:20 Levothyroxine Sodium (Levothyroxine Sodium 150 Mcg Tablet) 150 mcg PO DAILYBB JULIO CESAR Stop: 12/08/22 06:29 Last Admin: 11/13/22 06:33 Dose: 150 mcg Miscellaneous (Carbohydrates For Hypoglycemia ) 15 - 30 gm PO UD PRN PRN Reason: Hypoglycemia Protocol Stop: 12/07/22 20:20 Montelukast Sodium (Montelukast Sodium 10 Mg Tablet) 10 mg PO PM JULIO CESAR Stop: 12/07/22 20:59 Last Admin: 11/12/22 21:59 Dose: 10 mg Pantoprazole Sodium (Pantoprazole 40 Mg Tab) 40 mg PO DAILY JULIO CESAR Stop: 12/08/22 08:59 Last Admin: 11/13/22 08:48 Dose: 40 mg Polyethylene Glycol (Polyethylene (Miralax) 17 Gm Pack) 17 gm PO DAILY PRN PRN Reason: Constipation Stop: 12/07/22 20:20 Sertraline HCl (Sertraline Hcl 100 Mg Tablet) 100 mg PO DAILY JULIO CESAR Stop: 12/08/22 08:59 Last Admin: 11/13/22 08:49 Dose: 100 mg Sotalol HCl (Sotalol Hcl 80 Mg Tab) 40 mg PO BID JULIO CESAR Stop: 12/07/22 20:59 Last Admin: 11/13/22 08:49 Dose: 40 mg Torsemide (Torsemide 10 Mg Tab) 10 mg PO BID@0900,1400 JULIO CESAR Stop: 12/08/22 08:59 Last Admin: 11/10/22 08:51 Dose: 10 mg Umeclidinium/Vilanterol (Umeclidinium/Vilanterol 62.5/25mcg 7 Puffs/Inhaler) 1 puffs INH DAILY [facility] Stop: 12/08/22 08:59 Last Admin: 11/13/22 08:48 Dose: 1 puffs Vitamin D (Cholecalciferol 1,000 Units 25 Mcg Tab) 4,000 units PO QAM [facility] Stop: 12/08/22 08:59 Last Admin: 11/13/22 08:48 Dose: 4,000 units
--- NOTE | 2022-11-13 17:38 | Discharge Summary ---
Date of Service November 13, 2022 Admission HPI Per Admitting Provider Patient is an 82-year-old female with history of diabetes mellitus-diet controlled, paroxysmal atrial fibrillation, pulmonary hypertension, secondary hyperparathyroidism, peripheral vascular disease, chronic diastolic heart failure, hypothyroidism, Mnire's disease, obstructive sleep apnea on CPAP, iron deficiency anemia, CKD stage III, S/P pacemaker past tobacco use and other medical problems presents with history of strokelike symptoms. Patient has some hearing impairment and recent ear infection which worsened her hearing. Most of the history is obtained from patient as well as patient's daughter at bedside. Patient's daughter states that patient developed tongue tingling sensation at around 9:30 AM this morning which is associated with garbled speech. Tongue numbness lasted for about 30 minutes and garbled speech lasted for about 10 minutes as per family. Also states having generalized weakness which has been worse since 2 weeks duration. Currently while in ED, speech is back to baseline patient denies any focal weakness. Patient's daughter states that patient had prior TIAs. She was recently diagnosed to have a right ear infection and was evaluated by ENT, and completed 10-day course of doxycycline and eardrops. As per the family, hearing will gradually improve over 6 to 8 weeks duration. Patient states having chronic dyspnea on exertion, and has balance issues intermittently. She was referred by her office services manager for heart valve evaluation as per patient. She had pacemaker placement in July by Dr. Hewitt. She is scheduled for sleep study on November 19. Denies any history of chest pain, dyspea at rest, palpitations, orthopnea, dizziness, cough, wheezing, fever, fall, head trauma, syncope, headache, change in vision, double/blurry vision, facial deformity, bowel/bladder incontinence, nausea, vomiting, abdominal pain, diarrhea, dysuria, hematuria. Admission Exam Per Admitting Provider Physical Exam: Physical Exam: Vitals signs as noted above General Appearance:Moderately built and nourished, no apparent distress, Elderly Head: normocephalic, Atraumatic Eyes: normal inspection, EOMI Neck: supple, Trachea midline Respiratory/Chest: Normal breath sounds, +basal crackles, No accessory muscle use Cardiovascular: S1, S2, + murmur Abdomen/GI:Soft, Non tender, Bowel sounds present Extremities/Musculoskeletal:normal inspection, no edema Neurologic/Psych:AAOX3, grossly no focal neurological deficits, +Hearing impairment Skin: normal color, warm Principal Diagnosis Transient ischemic attack, acute on chronic diastolic heart failure, atrial fibrillation, UTI with Klebsiella aerogenes, type 2 diabetes Discharge Exam Lying in bed comfortably Constitutional well developed, well nourished and + obese; not ill appearing Eyes PERRL, conjunctivae normal, anicteric sclerae ENMT external ear and nose normal, oropharynx normal Neck trachea midline, no thyromegaly Respiratory no respiratory distress Auscultation: + diminished lung sounds and + crackles (Minimal crackles at the bases) Cardiovascular Rate/Rhythm: regular rate and regular rhythm; not tachycardic Heart Sounds: normal S1, normal S2 and + murmur Extremities: + edema (Trace edema bilaterally) Gastrointestinal (Abdomen) Inspection/Auscultation: normal bowel sounds; abdomen not distended Percussion/Palpation: abdomen soft; abdomen nontender Neurologic normal touch/pain/proprioception and moves all extremities; no focal motor deficits Psychiatric A+Ox3, euthymic affect Lymphatic no cervical or axillary lymphadenopathy Discharge Data Allergies Allergy/AdvReac Type Severity Reaction Status Date / Time Sulfa (Sulfonamide Allergy Severe Severe Verified 11/07/22 14:24 Antibiotics) rxn: rash and hives celecoxib Allergy Intermediate Rash/Hives/ Verified 11/07/22 14:24 Itching. cephalexin Allergy Intermediate Rash/Hives/ Verified 11/07/22 14:24 Itching. furosemide Allergy Intermediate Rash/Hives/ Verified 11/07/22 14:24 Itching. gabapentin Allergy Intermediate Rash/Hives/ Verified 11/07/22 14:24 Itching. pregabalin Allergy Intermediate Rash/Hives/ Verified 11/07/22 14:24 Itching. meclizine Allergy Unknown Unknown Verified 11/07/22 14:24 methylprednisolone Allergy Unknown Rash/Hives/ Verified 11/07/22 14:24 Itching. Penicillins Allergy Unknown Unknown. Verified 11/07/22 14:24 prednisone Allergy Unknown Rash/Hives/ Verified 11/07/22 14:24 Itching. vancomycin Allergy Unknown Jodi Verified 11/07/22 14:24 syn. . nickel Allergy Unknown Verified 11/07/22 14:24 dexamethasone AdvReac Intermediate Steroid Verified 11/07/22 14:24 psychosis. Consultations 11/07/22 20:21 Consult Cardiology Routine Consult Neurology Routine Ordered Studies 11/07/22 11:43 CT angio head w con Stat CT angio neck with con Stat CT head/brain wo con Stat 11/07/22 14:01 MR brain wo con Stat Hospital Course (1) Stroke-like symptoms: Transient ischemic attack --MRI Brain:No acute intracranial findings. --Head/Neck CTA:No significant stenosis or occlusion within the [place]. No significant stenosis, occlusion, or dissection identified within the carotid or vertebral arteries. 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 --Head CT:No acute intracranial findings. No change in appearance of the brain. Stroke work up including lipid panel-unremarkable, [id number] elevated at 6.9 Recent ECHO: 10/21/22: Concentric LVH, EF 65%, right ventricle appears to be mildly dilated, right ventricular systolic function is mildly reduced, mild prolapse of anterior mitral valve, severe mitral regurgitation, severe tricuspid regurgitation, dilated IVC with reduced collapsibility, and severe pulmonary hyp ertension Speech and swallow eval-appreciated speech evaluation Continue aspirin, Lipitor Appreciate neurology input and recommendation-anticoagulation if no current indication otherwise aspirin plus Plavix for 21 days followed by Plavix alone Patient has been started on Eliquis 2.5 mg twice daily by the cardiology PT OT evaluation before discharge Has had minimal tongue swelling this morning likely secondary to another TIA event Reassured and the patient did not have any other neurological deficit on examination Resolved tongue heaviness and numbness and does not have any more neurodeficit in the extremities No motor strokelike symptoms We will get PT and OT evaluation and likely discharge tomorrow with home health nurse-she was denied to go to [facility] Awaiting authorization from [facility]-Peer to Peer advised but did not have time to go through She was denied to go to [facility]-to be discharged home with home health Remains medically stable without any more neurological symptoms Discussed with the daughter and the patient will be discharged in the afternoon Acute on chronic diastolic heart failure CXR showed:Suspected mild pulmonary edema. Cardiomegaly. Last ECHO: As above BNP 1055 Clinically no overt signs of volume overload on exam Received IV Lasix in ED Continue torsemide Daily weight, I/Os, fluid restriction Monitor renal function/electrolytes Cardiology consulted-appreciate input and recommended Received another dose of intravenous Lasix 40 mg We will continue with torsemide 10 mg twice daily as before Remains stable with ongoing diuresis Creatinine remains elevated at more than 2 likely secondary to use of diuretics We will monitor PRP tomorrow and restart torsemide when the level is down Creatinine is improving Will restart furosemide/torsemide on discharge Creatinine has improved to 1.53 seems to be around her baseline Abnormal urinalysis Denies any urinary symptoms Urine culture is growing gram-negative bacilli and ertapenem has been started due to allergy to multiple medications and antibiotics Urine is growing Klebsiella erogenous which is pansensitive except nitrofurantoin, ertapenem will be continued as she is allergic to so many antibiotics Will continue current antibiotic for about 5 days in total Finish IV antibiotic before discharge Antibiotic course will be finished tomorrow Antibiotic course will be done today Generalized weakness Ambulatory dysfunction with balance issues Secondary to comorbidities PT OT Fall precautions Sick sinus syndrome S/P pacemaker H/O paroxysmal atrial fibrillation Continue sotalol Not on chronic anticoagulation DM Type II: HbA1C: 6.2 on 08/27/22 Diet controlled ISS per protocol while hospitalized Monitor BGs Recent Ear Infection Completed antibiotic course Follow-up with ENT as outpatient Other chronic conditions Pulmonary hypertension secondary hyperparathyroidism Asthma peripheral vascular disease Hypothyroidism Mnire's disease Obstructive sleep apnea on CPAP Iron deficiency anemia CKD stage III Past tobacco use Continue home medications DVT Px: Eliquis 2.5 mg twice daily Code Status Full Code She will be discharged home this afternoon with home health Total Time Total Time Spent Total Time Spent (In Minutes): 35 minutes Discharge Plan Discharge Items Patient Disposition: Home - Home Health Services Reason For Visit: STROKE LIKE SYMPTOMS Discharge Diagnosis: Transient ischemic attack, acute on chronic diastolic heart failure, atrial fibrillation, UTI with Klebsiella aerogenes, type 2 diabetes Condition on Discharge: Good Activity: Resume your previous activity Non-emergency contact: Primary Care Provider Call non-emergency contact if: you have any medication questions and your symptoms worsen Follow-up/Referrals: Florentin Calvo DO [Primary Care Provider] - (Date & Time 11/18/2022 1:00 PM Provider Floerntin Calvo DO Department [facility] [address] [place] ) Diet: Carb Consistent or DM2 and Heart Healthy Addtl Attending Provider Instructions: Please take precautions to avoid falls Take your medications as advised Eliquis has been started with lower dose at 2.5 mg twice daily Levothyroxine dose has been decreased to 125 mcg and advised to have a repeat TSH in about 6 weeks to adjust the doses if needed Please keep appointments with your healthcare providers Pending Studies at Discharge: No Stand-Alone Forms: My [facility], Smoking Cessation Medications and DC Order Prescriptions: New Eliquis 2.5 mg Tablet 2.5 mg PO BID Qty: 60 0RF levothyroxine 125 mcg capsule 125 mcg PO DAILY Qty: 30 0RF Continued lansoprazole 15 mg capsule,delayed release(DR/EC) 15 mg PO QAM montelukast 10 mg tablet 10 mg PO PM alprazolam 0.5 mg tablet 0.25 mg PO HS ferrous sulfate 325 mg (65 mg iron) Tablet 325 mg PO DAILY atorvastatin 20 mg tablet 20 mg PO QAM allopurinol 100 mg tablet 200 mg PO HS cholecalciferol (vitamin D3) [Vitamin D3] 50 mcg (2,000 unit) Capsule 100 mcg PO QAM aspirin 81 mg Tablet,Delayed Release (Dr/Ec) 81 mg PO HS sertraline 100 mg Tablet 100 mg PO DAILY sotalol 80 mg Tablet 40 mg PO AMPM levalbuterol tartrate [Xopenex HFA] 45 mcg/actuation Hfa Aerosol Inhaler 1 puff INHALATION Q4 PRN (Reason: Shortness Of Breath) cyanocobalamin (vitamin B-12) [Vitamin B-12] 100 mcg Tablet 100 mcg PO DAILY torsemide 10 mg tablet 10 mg PO BID Rx Instructions: Take in AM & afternoon Stiolto Respimat 2.5-2.5 mcg/actuation mist 2 puff INHALATION QAM folic acid 1 mg Tablet 1 mg PO DAILY Discontinued levothyroxine 150 mcg tablet 150 mcg PO QAM Discharge Orders: Discharge Order- CHF (Routine); Ordered 11/13/22 Ordered By: Zahida Gandhi/Other Patient Handouts: Anticoagulants, What Is a TIA?, Urinary Tract Infections in Women Admission Data Admit Date/Time: 11/07/22 18:50 Attending Provider: Zahida Gomez Admit Provider: Ace Duarte Primary Care Provider: Florentin Calvo Other Providers: Isaías Márquez ; [place] ; Ace Duarte ; [facility] ; [facility] Other Interventions: Discharge Summary Assessment (RN) Last Done: 11/13/22 13:02
== END 2022-11-13 13:45 | disposition home health service (06) | DRG 69 ==
LOC: ED 11:16 → SUATTDRO 18:50 → 2S 18:50

== ENCOUNTER 2022-12-06 12:30 | Inpatient (IN) ==
[2022-12-06 15:09] LABS: Basophils # (auto) 0.06 K/uL (0-0.2); Basophils % (auto) 0.5 %; Eosinophils % (auto) 5.8 %; Hematocrit (blood only) 23.7 % (37.0-47.0); Hemoglobin 7.5 g/dl (12.0-16.0); Immature Granulocytes # (auto) 0.12 K/uL (0.01-0.20); Lymphocytes # (auto) 1.45 K/uL (1.2-3.4); Lymphocytes % (auto) 11.9 %; Mean Corpuscular Hgb Conc 31.6 g/dL (32.0-36.0); Mean Corpuscular Volume 91.5 fL (80.0-100.0); Mean Platelet Volume 10.2 fL (9.4-12.4); Monocytes # (auto) 1.19 K/uL (0.11-0.59); Monocytes % (auto) 9.8 %; Neutrophils # (auto) 8.65 K/uL (1.40-6.50); Nucleated RBC # (auto) 0.07 K/uL (0-0.12); Nucleated RBC % (auto) 0.6 %; Platelet Count 225 K/uL (130-400); RDW Coefficient of Variation 20.1 % (11.5-14.5); RDW Standard Deviation 66.4 fL (36.4-46.3); Red Blood Count 2.59 M/uL (4.20-5.40); White Blood Count 12.17 K/ul (4.8-10.8)
[2022-12-06 15:16] LABS: Albumin Globulin Ratio 1.3 (0.9-2); Albumin Level 3.8 gm/dl (3.4-5.0); BUN Creatinine Ratio 32.1 (10-20); Bilirubin,Total 0.4 mg/dl (0.2-1.0); Creatinine Clr Calc Pharmacy 27.5 ml/min; Est GFR (African American) 35.5 ml/min; Est GFR (Non-African American) 30.6 ml/min; Globulin 2.9 gm/dl (2.5-4.0); Potassium 3.9 mmol/L (3.5-5.1); Total Protein 6.7 gm/dl (6.0-8.3)
--- NOTE | 2022-12-06 15:23 | Emergency Department Note ---
Impression & Plan Anemia, Leukocytosis, Chronic anticoagulation ED Provider Note INFORMANT: Patient and family ED PROVIDER(S): Ventura Das MD CHIEF COMPLAINT: Anemia PLAN: Disposition: Admitted Condition: Good Outpatient prescription management: none Referral: None MEDICAL DECISION MAKING: Patient presented because of worsening anemia as an outpatient. She does note having some symptoms with exertion. Hemodynamically she is stable. Her CBC showed an increasing leukocytosis. She has a stable anemia from this morning however her CBC from 2 weeks ago shows a significant drop of almost 3 units. Discussed transfusion with the patient. Further management in the hospital will be necessary given her history, anticoagulation, and the profound change management specialist 2 weeks. Consultation was made with the [facility] service. Case was discussed and diagnostics were reviewed. Transfusion of 1 unit of packed red blood cells was discussed and agreed upon. This was ordered from the ER. Patient was evaluated in the ER admitted for further management Discussed with catering service manager. After review of the information above and other included data, I feel the patient requires admission. Triage Nursing notes reviewed and agree them. Vital Signs: reviewed and remarkable for no significant abnormalities Prior /Outside records reviewed: Prior clinic labs reviewed revealing the abrupt anemia change. Differential diagnosis: Anemia, bone marrow failure, GI bleed, complication of anticoagulation, infection, dehydration, metabolic abnormality, hypo/hyperglycemia, electrolyte disturbance, anemia, hypoxia, toxicologic, neurologic, as well as other pathologies. Diagnostics, as interpreted by me: ECG: none Cardiac Monitoring: Cardiac monitoring ordered by me: The patient was placed on continuous cardiac monitoring and observed. It revealed a normal sinus rhythm at 61 beats per minute without ectopy or evidence of dysrhythmia. Medical decision rules: none Imaging studies: None HPI: The patient is a 82year old female who presents to the Emergency Room with complaints of anemia. Patient notes having history of anemia. She notes many years ago requiring a transfusion after a miscarriage. She has been monitored by [facility] outpatient providers and was noted to have dropped her hemoglobin from 10.6-7.3 in 2 weeks. She does note feeling weaker and more short of breath with exertion. She has been on iron due to the anemia and has chronic black stools. She states she has had a scope done in the past but they did not find a source of the bleeding. She was pending another 1 that has not been completed. Pt denies LOC, headache, fevers, chills, diaphoresis, visual changes, neck pain, chest pain, nausea, vomiting, abdominal pain, back pain, epistaxis, hematochezia, urinary symptoms, numbness, weakness, lymphadenopathy, rash, or other complaints. PAST MEDICAL HISTORY: See Below, A-fib, anticoagulation, anemia PAST SURGICAL HISTORY: See Below, SOCIAL HISTORY:Retired, see below HOME MEDICATIONS: See Below ALLERGIES: See Below VITALS: See Below PHYSICAL EXAMINATION: GENERAL: Awake, alert, [id number], in no distress HENT: Normocephalic, atraumatic. Oropharynx unremarkable. EYES: Pale conjunctiva. Sclera non-icteric. NECK: Inspection normal. Non-tender. Supple. No nuchal rigidity. FROM. No masses. RESPIRATORY: Clear to auscultation. No wheezes. No rales. Normal respiratory effort. CARDIAC: Normal rate. Normal rhythm. No murmurs. No rubs. Extremities warm and well perfused. Pulses equal. No JVD. GI: Soft, non-distended. No tenderness to palpation. No rebound or guarding. No masses. RECTAL: Deferred. MUSCULOSKELETAL: Atraumatic. Chest examination reveals no tenderness. The back is symmetrical on inspection without obvious abnormality. There is no CVA t enderness to palpation. No joint edema. LOWER EXTREMITIES: Calves are equal size bilaterally and non-tender. Trace edema. No discoloration. NEURO: Normal sensorium. No sensory or motor deficits noted. SKIN: No rash or jaundice noted. Past Med/Surg History Medical History TIFFANY (acute kidney injury) Asthma, moderate persistent Atrial fibrillation and flutter Atrial fibrillation with RVR Atrial flutter Carotid artery aneurysm Chest pain at rest Cholecystitis Cholelithiasis CKD (chronic kidney disease), stage III Dehydration Depression DM type 2 (diabetes mellitus, type 2) Elevated brain natriuretic peptide (BNP) level Encounter for pre-operative examination History of tobacco abuse HTN (hypertension) Hypotension Hypothyroidism Leukocytosis Meniere disease Nausea Near syncope Near syncope RADHA (obstructive sleep apnea) Osteoarthritis of right knee Pneumonia Prolonged QT interval Pulmonary emphysema Surgical History H/O sinus surgery History of cholecystectomy History of hysterectomy History of laminectomy History of repair of left rotator cuff Hx of neck surgery Family History Father Diabetes Social History Smoking Status: Never smoker Tobacco Type: Cigarettes packs per day: 1.5; Cigarettes Per Day: 30; Second Hand Exposure: No; Hx Alcohol Use: No Hx Substance Use: No Preferred Language: Setswana Communication Ability: Effective Motorcycle Maker Required: No Beliefs That Will Affect Care: None marital status: Current Living Situation: Spouse Feels Safe at Home: Yes Assistive Devices: Cane and Walker Allergies Allergies Allergy/AdvReac Type Severity Reaction Status Date / Time Sulfa (Sulfonamide Allergy Severe Severe Verified 12/06/22 16:15 Antibiotics) rxn: rash and hives celecoxib Allergy Intermediate Rash/Hives/ Verified 12/06/22 16:15 Itching. cephalexin Allergy Intermediate Rash/Hives/ Verified 12/06/22 16:15 Itching. furosemide Allergy Intermediate Rash/Hives/ Verified 12/06/22 16:15 Itching. gabapentin Allergy Intermediate Rash/Hives/ Verified 12/06/22 16:15 Itching. pregabalin Allergy Intermediate Rash/Hives/ Verified 12/06/22 16:15 Itching. meclizine Allergy Unknown Unknown Verified 12/06/22 16:15 methylprednisolone Allergy Unknown Rash/Hives/ Verified 12/06/22 16:15 Itching. Penicillins Allergy Unknown Unknown. Verified 12/06/22 16:15 prednisone Allergy Unknown Rash/Hives/ Verified 12/06/22 16:15 Itching. vancomycin Allergy Unknown Jodi Verified 12/06/22 16:15 syn. . nickel Allergy Unknown Verified 12/06/22 16:15 dexamethasone AdvReac Intermediate Steroid Verified 12/06/22 16:15 psychosis. Home Meds Home Medications Medication Instructions Recorded Confirmed alprazolam 0.5 mg tablet 0.25 mg PO HS 04/08/19 12/06/22 lansoprazole 15 mg capsule,delayed 15 mg PO QAM 04/08/19 12/06/22 release montelukast 10 mg tablet 10 mg PO PM 04/08/19 12/06/22 ferrous sulfate 325 mg (65 mg 325 mg PO DAILY 06/03/20 12/06/22 iron) tablet allopurinol 100 mg tablet 200 mg PO HS 11/26/21 12/06/22 atorvastatin 20 mg tablet 20 mg PO QAM 11/26/21 12/06/22 cholecalciferol (vitamin D3) 50 100 mcg PO QAM 11/26/21 12/06/22 mcg (2,000 unit) capsule (Vitamin D3) aspirin 81 mg tablet,delayed 81 mg PO HS 01/04/22 12/06/22 release levalbuterol tartrate 45 1 puff inhalation Q4 PRN Shortness 08/07/22 12/06/22 mcg/actuation aerosol inhaler Of Breath (Xopenex HFA) sertraline 100 mg tablet 100 mg PO DAILY 08/07/22 12/06/22 sotalol 80 mg tablet 40 mg PO AMPM 08/07/22 12/06/22 cyanocobalamin (vitamin B-12) 100 100 mcg PO DAILY 11/07/22 12/06/22 mcg tablet (Vitamin B-12) folic acid 1 mg tablet 1 mg PO DAILY 11/07/22 12/06/22 tiotropium 2.5 mcg-olodaterol 2.5 2 puff inhalation QAM 11/07/22 12/06/22 mcg/actuation mist for inhalation (Stiolto Respimat) torsemide 10 mg tablet 10 mg PO QAM 11/07/22 12/06/22 empagliflozin 10 mg tablet 10 mg PO DAILY 12/06/22 12/06/22 (Jardiance) ipratropium bromide 21 mcg (0.03 2 spray intranasal DAILY 12/06/22 12/06/22 %) nasal spray Previous Rx's Medication Instructions Recorded apixaban 2.5 mg tablet (Eliquis) 2.5 mg PO BID #60 tabs 11/13/22 levothyroxine 125 mcg capsule 125 mcg PO DAILY #30 caps 11/13/22 Results & Data (ED) Vital Signs Vital Signs - 24 hr 12/06/22 12:35 12/06/22 15:12 12/06/22 15:42 Temperature 36.8 C Temperature Source Temporal Artery Scan Pulse Rate 116 H 61 61 Pulse Rhythm Regular Pulse Strength Normal Respiratory Rate 20 18 Respiratory Effort / Characteristics Non-Labored Spontaneous Respiratory Depth Normal Respiratory Pattern Regular Blood Pressure 118/70 Blood Pressure Mean 86 Blood Pressure Position Sitting Pulse Oximetry 99 95 Oxygen Delivery Method Room Air Room Air Sepsis Recent Fever Within 48 Hours No Sepsis New/Unexplained Change in Mental Status N/A Sepsis Action Taken by Nursing No Action Required Laboratory Data 12/06/22 14:31 12/06/22 14:31 Lab Results 12/06/22 12/06/22 12/06/22 Range/Units 14:31 14:31 14:31 WBC 12.17 H (4.8-10.8) K/ul RBC 2.59 L (4.20-5.40) M/uL Hgb 7.5 L (12.0-16.0) g/dl Hct 23.7 L (37.0-47.0) % MCV 91.5 (80.0-100.0) fL MCH 29.0 (25.0-34.0) pg MCHC 31.6 L (32.0-36.0) g/dL RDW Std Deviation 66.4 H (36.4-46.3) fL RDW Coeff of Francisco Javier 20.1 H (11.5-14.5) % Plt Count 225 (130-400) K/uL MPV 10.2 (9.4-12.4) fL Immature Gran % (Auto) 1.0 % Neut % (Auto) 71.0 % Lymph % (Auto) 11.9 % Mcmullen % (Auto) 9.8 % Eos % (Auto) 5.8 % Baso % (Auto) 0.5 % Neut # (Auto) 8.65 H (1.40-6.50) K/uL Lymph # (Auto) 1.45 (1.2-3.4) K/uL Mcmullen # (Auto) 1.19 H (0.11-0.59) K/uL Eos # (Auto) 0.70 H (0-0.50) K/uL Baso # (Auto) 0.06 (0-0.2) K/uL Immature Gran # (Auto) 0.12 (0.01-0.20) K/uL Absolute Nucleated RBC 0.07 (0-0.12) K/uL Nucleated RBC % (auto) 0.6 % Polychromasia 1+ Ovalocytes 1+ PT 11.9 (9.0-12.0) Seconds INR 1.1 (0.9-1.1) APTT 32.0 H (21.0-31.0) Seconds PTT Ratio 1.2 Sodium (136-145) mmol/L Potassium (3.5-5.1) mmol/L Chloride (98-107) mmol/L Carbon Dioxide (21-32) mmol/L Anion Gap (3-11) BUN (6-23) mg/dl Creatinine (0.6-1.2) mg/dl Est Cr Clr Drug Dosing ml/min Est GFR ( Amer) ml/min Est GFR (Non-Af Amer) ml/min BUN/Creatinine Ratio (10-20) Glucose (70-99(Fasting)) mg/dl Calcium (8.6-10.3) mg/dl Total Bilirubin (0.2-1.0) mg/dl AST (13-39) U/L ALT (7-52) U/L Alkaline Phosphatase (34-104) U/L Total Protein (6.0-8.3) gm/dl Albumin (3.4-5.0) gm/dl Globulin (2.5-4.0) gm/dl Albumin/Globulin Ratio (0.9-2) SARS-CoV-2, RNA, NAAT (NEGATIVE) Blood Type O Positive Antibody Screen NEGATIVE Crossmatch See Detail 12/06/22 12/06/22 Range/Units 14:31 15:21 WBC (4.8-10.8) K/ul RBC (4.20-5.40) M/uL Hgb (12.0-16.0) g/dl Hct (37.0-47.0) % MCV (80.0-100.0) fL MCH (25.0-34.0) pg MCHC (32.0-36.0) g/dL RDW Std Deviation (36.4-46.3) fL RDW Coeff of Francisco Javier (11.5-14.5) % Plt Count (130-400) K/uL MPV (9.4-12.4) fL Immature Gran % (Auto) % Neut % (Auto) % Lymph % (Auto) % Mcmullen % (Auto) % Eos % (Auto) % Baso % (Auto) % Neut # (Auto) (1.40-6.50) K/uL Lymph # (Auto) (1.2-3.4) K/uL Mcmullen # (Auto) (0.11-0.59) K/uL Eos # (Auto) (0-0.50) K/uL Baso # (Auto) (0-0.2) K/uL Immature Gran # (Auto) (0.01-0.20) K/uL Absolute Nucleated RBC (0-0.12) K/uL Nucleated RBC % (auto) % Polychromasia Ovalocytes PT (9.0-12.0) Seconds INR (0.9-1.1) APTT (21.0-31.0) Seconds PTT Ratio Sodium 137 (136-145) mmol/L Potassium 3.9 (3.5-5.1) mmol/L Chloride 107 (98-107) mmol/L Carbon Dioxide 23 (21-32) mmol/L Anion Gap 7 (3-11) BUN 50 H (6-23) mg/dl Creatinine 1.56 H (0.6-1.2) mg/dl Est Cr Clr Drug Dosing 27.5 ml/min Est GFR ( Amer) 35.5 ml/min Est GFR (Non-Af Amer) 30.6 ml/min BUN/Creatinine Ratio 32.1 H (10-20) Glucose 120 H (70-99(Fasting)) mg/dl Calcium 9.0 (8.6-10.3) mg/dl Total Bilirubin 0.4 (0.2-1.0) mg/dl AST 31 (13-39) U/L ALT 16 (7-52) U/L Alkaline Phosphatase 176 H (34-104) U/L Total Protein 6.7 (6.0-8.3) gm/dl Albumin 3.8 (3.4-5.0) gm/dl Globulin 2.9 (2.5-4.0) gm/dl Albumin/Globulin Ratio 1.3 (0.9-2) SARS-CoV-2, RNA, NAAT NEGATIVE (NEGATIVE) Blood Type Antibody Screen Crossmatch Discharge Plan Visit Data Chief Complaint: Illness Stated Complaint: CHEMOTOLOGY CALLED ED Provider: Ventura Das Discharge Problem: Anemia, Leukocytosis, Chronic anticoagulation Forms Stand Alone Forms: My [facility] Prescriptions Prescriptions: No Action lansoprazole 15 mg capsule,delayed release(DR/EC) 15 mg PO QAM montelukast 10 mg tablet 10 mg PO PM alprazolam 0.5 mg tablet 0.25 mg PO HS ferrous sulfate 325 mg (65 mg iron) Tablet 325 mg PO DAILY ipratropium bromide 21 mcg (0.03 %) spray,non-aerosol 2 spray INTRANASAL DAILY Jardiance 10 mg tablet 10 mg PO DAILY atorvastatin 20 mg tablet 20 mg PO QAM allopurinol 100 mg tablet 200 mg PO HS cholecalciferol (vitamin D3) [Vitamin D3] 50 mcg (2,000 unit) Capsule 100 mcg PO QAM aspirin 81 mg Tablet,Delayed Release (Dr/Ec) 81 mg PO HS sertraline 100 mg Tablet 100 mg PO DAILY sotalol 80 mg Tablet 40 mg PO AMPM levalbuterol tartrate [Xopenex HFA] 45 mcg/actuation Hfa Aerosol Inhaler 1 puff INHALATION Q4 PRN (Reason: Shortness Of Breath) cyanocobalamin (vitamin B-12) [Vitamin B-12] 100 mcg Tablet 100 mcg PO DAILY torsemide 10 mg tablet 10 mg PO QAM Stiolto Respimat 2.5-2.5 mcg/actuation mist 2 puff INHALATION QAM folic acid 1 mg Tablet 1 mg PO DAILY Eliquis 2.5 mg Tablet 2.5 mg PO BID Qty: 60 0RF levothyroxine 125 mcg capsule 125 mcg PO DAILY Qty: 30 0RF Referrals Referrals: Florentin Calvo DO [Primary Care Provider] -
[2022-12-06 15:31] LABS: INR 1.1 (0.9-1.1); Partial Thromboplastin Ratio 1.2; Prothrombin Time 11.9 Seconds (9.0-12.0)
[2022-12-06 15:36] LABS: Ovalocytes 1+; Polychromasia 1+
[2022-12-06] MEDS ORDERED: SODIUM CHLORIDE 0.9% 250 ML IV PRN (15:49)
--- NOTE | 2022-12-06 15:51 | History & Physical Report ---
Date of Service December 06, 2022 Assessment & Plan (1) Anemia: Plan: Acute on chronic anemia Symptomatic anemia Patient is 82-year-old female with PMH DM II, paroxysmal atrial fibrillation, TIA, pulmonary hypertension, secondary hyperparathyroidism, PVD, chronic memo stolic heart failure, hypothyroidism, Mnire's disease, RADHA, iron deficiency anemia, CKD III, SSS S/P pacemaker presented to ER with c/o abnormal labs- anemia. Hgb: 7.3 on outpatient labs today. Generalized weakness, SOB, lightheaded Last IV iron on 11/01/22 Colonoscopy 03/11/2022: Few diverticula in sigmoid colon EGD: 03/11/2022: Multiple diminutive sessile fundic gland polyps with no stigmata of recent bleeding found Video capsule: 04/08/2022: Gastric erosions noted, no small bowel abnormality noted Today in ER Hgb: 7.5 (Hgb 10.6 on 11/18/22 and 9.8 on 10/21/22). Vitals stable. Started on Eliquis 10/2022 1 unit PRBC to be transfused Repeat H&H Hold Eliquis GI consult CBC in a.m. (2) Paroxysmal atrial fibrillation: Plan: Hold Eliquis secondary to acute on chronic anemia Continue sotalol Cardiology consult, will need recommendations on future anticoagulation considerations, risk versus benefit (3) TIA (transient ischemic attack): Plan: TIA 10/2022 and was started on Eliquis Unfortunately patient with acute on chronic anemia as above while on Eliquis Continue atorvastatin, aspirin May need neurology consult (4) DM type 2 (diabetes mellitus, type 2): Plan: A1c: 6.2 on 08/27/2022 Hold home meds NovoLog sliding scale. Monitor BG to further adjust (5) CKD (chronic kidney disease), stage III: Plan: Cr: 1.56 (baseline 1.3-1.6 per record review) Avoid nephrotoxic agents when possible (6) Chronic diastolic (congestive) heart failure: Plan: Appears euvolemic Continue torsemide (7) SSS (sick sinus syndrome): Plan: S/P pacemaker (8) Asthma, moderate persistent: Plan: No acute exacerbation Continue home inhalers, Singulair (9) RADHA (obstructive sleep apnea): Plan: BiPAP at bedtime (10) Hypothyroidism: Plan: Continue levothyroxine (11) Depression: Plan: Continue sertraline DVT Prophylaxis SCDs Full Code as per discussion with pt, however reports would not want Follows with Dr Calvo for routine care Pt was seen and care coordinated with Dr Decker. See addendum I spent a total of 80 minutes reviewing notes, outpatient records, labs, medication, coordinating, documenting and providing care for this patient excluding time spent in the performance of separately billed services. History of Present Illness Chief Complaint: Abnormal labs Primary Care Provider: Florentin Calvo DO Patient is 82-year-old female with PMH DM II, paroxysmal atrial fibrillation, TIA, pulmonary hypertension, secondary hyperparathyroidism, PVD, chronic diastolic heart failure, hypothyroidism, Mnire's disease, RADHA, iron deficiency anemia, CKD III, SSS S/P pacemaker presented to ER with c/o abnormal labs- anemia. Hgb: 7.3 on outpatient labs today. States has been more fatigued and SOB past 1-2 weeks. Past two days with mild lightheadedness and generalized weakness. Patient with history iron deficiency. On chronic iron so stools are always dark. Last IV iron on 11/01/22. Recent hospitalization 10/2022 at [facility] for TIA and Eliquis was restarted. Patient states last year was on Eliquis for a- fib and had worsening anemia and Eliquis was discontinued after unremarkable GI workup. Denies fever/chills, diaphoresis, N/V/D/C, [place], syncope, vision changes, neck pain, CP, orthopnea, palpitations, cough, sore throat, choking, otalgia, rhinorrhea, abdominal pain, paresthesias, weakness, extremity weakness, extremity edema, rashes, urinary symptoms, hematuria, hematochezia. Outpatient records reviewed: Colonoscopy 03/11/2022: Few diverticula in sigmoid colon EGD: 03/11/2022: Multiple diminutive sessile fundic gland polyps with no stigmata of recent bleeding found Video capsule: 04/08/2022: Gastric erosions noted, no small bowel abnormality noted Allergies Allergy/AdvReac Type Severity Reaction Status Date / Time Sulfa (Sulfonamide Allergy Severe Severe Verified 12/06/22 16:15 Antibiotics) rxn: rash and hives celecoxib Allergy Intermediate Rash/Hives/ Verified 12/06/22 16:15 Itching. cephalexin Allergy Intermediate Rash/Hives/ Verified 12/06/22 16:15 Itching. furosemide Allergy Intermediate Rash/Hives/ Verified 12/06/22 16:15 Itching. gabapentin Allergy Intermediate Rash/Hives/ Verified 12/06/22 16:15 Itching. pregabalin Allergy Intermediate Rash/Hives/ Verified 12/06/22 16:15 Itching. meclizine Allergy Unknown Unknown Verified 12/06/22 16:15 methylprednisolone Allergy Unknown Rash/Hives/ Verified 12/06/22 16:15 Itching. Penicillins Allergy Unknown Unknown. Verified 12/06/22 16:15 prednisone Allergy Unknown Rash/Hives/ Verified 12/06/22 16:15 Itching. vancomycin Allergy Unknown Jodi Verified 12/06/22 16:15 syn. . nickel Allergy Unknown Verified 12/06/22 16:15 dexamethasone AdvReac Intermediate Steroid Verified 12/06/22 16:15 psychosis. Home Medications Medication Instructions Recorded Confirmed Type alprazolam 0.5 mg tablet 0.25 mg PO HS 04/08/19 12/06/22 History lansoprazole 15 mg capsule,delayed 15 mg PO QAM 04/08/19 12/06/22 History release montelukast 10 mg tablet 10 mg PO PM 04/08/19 12/06/22 History ferrous sulfate 325 mg (65 mg 325 mg PO DAILY 06/03/20 12/06/22 History iron) tablet allopurinol 100 mg tablet 200 mg PO HS 11/26/21 12/06/22 History atorvastatin 20 mg tablet 20 mg PO QAM 11/26/21 12/06/22 History cholecalciferol (vitamin D3) 50 100 mcg PO QAM 11/26/21 12/06/22 History mcg (2,000 unit) capsule (Vitamin D3) aspirin 81 mg tablet,delayed 81 mg PO HS 01/04/22 12/06/22 History release levalbuterol tartrate 45 1 puff inhalation Q4 PRN Shortness 08/07/22 12/06/22 History mcg/actuation aerosol inhaler Of Breath (Xopenex HFA) sertraline 100 mg tablet 100 mg PO DAILY 08/07/22 12/06/22 History sotalol 80 mg tablet 40 mg PO AMPM 08/07/22 12/06/22 History cyanocobalamin (vitamin B-12) 100 100 mcg PO DAILY 11/07/22 12/06/22 History mcg tablet (Vitamin B-12) folic acid 1 mg tablet 1 mg PO DAILY 11/07/22 12/06/22 History tiotropium 2.5 mcg-olodaterol 2.5 2 puff inhalation QAM 11/07/22 12/06/22 His tory mcg/actuation mist for inhalation (Stiolto Respimat) torsemide 10 mg tablet 10 mg PO QAM 11/07/22 12/06/22 History apixaban 2.5 mg tablet (Eliquis) 2.5 mg PO BID #60 tabs 11/13/22 12/06/22 Rx levothyroxine 125 mcg capsule 125 mcg PO DAILY #30 caps 11/13/22 12/06/22 Rx empagliflozin 10 mg tablet 10 mg PO DAILY 12/06/22 12/06/22 History (Jardiance) ipratropium bromide 21 mcg (0.03 2 spray intranasal DAILY 12/06/22 12/06/22 History %) nasal spray Past Med/Surg History Medical History (Updated 12/06/22 @ 16:48 by Rose Mccormick PA-C) TIFFANY (acute kidney injury) Asthma, moderate persistent Atrial fibrillation and flutter Atrial fibrillation with RVR Atrial flutter Carotid artery aneurysm Chest pain at rest Cholecystitis Cholelithiasis Chronic diastolic (congestive) heart failure CKD (chronic kidney disease), stage III Dehydration Depression DM type 2 (diabetes mellitus, type 2) Elevated brain natriuretic peptide (BNP) level Encounter for pre-operative examination History of tobacco abuse HTN (hypertension) Hypotension Hypothyroidism Leukocytosis Meniere disease Nausea Near syncope Near syncope RADHA (obstructive sleep apnea) Osteoarthritis of right knee Pneumonia Prolonged QT interval Pulmonary emphysema SSS (sick sinus syndrome) TIA (transient ischemic attack) Surgical History H/O sinus surgery History of cholecystectomy History of hysterectomy History of laminectomy History of repair of left rotator cuff Hx of neck surgery Family History Father Diabetes Social History Smoking Status: Never smoker Tobacco Type: Cigarettes packs per day: 1.5; Cigarettes Per Day: 30; Second Hand Exposure: No; Hx Alcohol Use: No Hx Substance Use: No Preferred Language: Lithuanian Communication Ability: Effective Joiner Required: No Beliefs That Will Affect Care: None marital status: Current Living Situation: Spouse Feels Safe at Home: Yes Assistive Devices: Cane and Walker Review of Systems Review of Systems: All systems reviewed & are unremarkable except as noted in HPI & below Physical Exam Physical Exam: General: no distress, WDWN Head: normocephalic, atraumatic Eyes: conjunctiva non-injected, anicteric ENT: normal inspection external ears, nose, mucous membranes moist Neck: supple, trachea midline Lungs: clear, no respiratory distress, no wheezing/rhonchi/rales CV: RRR, + murmur, no pretibial edema Abd: normal BS, soft, non-tender Ext: no cyanosis, no calf tenderness Neuro: A&O x 3, no focal deficits noted, normal affect Skin: pale, warm, dry Results & Data Results & Data Vital Signs (Past 12 Hours) Vital Signs Temp Pulse Resp BP Pulse Ox O2 Del Method 12/06/22 15:42 61 12/06/22 15:12 61 18 95 Room Air 12/06/22 12:35 36.8 C 116 H 20 118/70 99 Room Air Laboratory Results Short CBC 12/06/22 Range/Units 14:31 WBC 12.17 H (4.8-10.8) K/ul Hgb 7.5 L (12.0-16.0) g/dl Hct 23.7 L (37.0-47.0) % Plt Count 225 (130-400) K/uL BMP 12/06/22 14:31 Sodium 137 Potassium 3.9 Chloride 107 Carbon Dioxide 23 BUN 50 H Creatinine 1.56 H Glucose 120 H Calcium 9.0 Liver Function 12/06/22 Range/Units 14:31 Total Bilirubin 0.4 (0.2-1.0) mg/dl AST 31 (13-39) U/L ALT 16 (7-52) U/L Alkaline Phosphatase 176 H (34-104) U/L Albumin 3.8 (3.4-5.0) gm/dl Supervising Physician Co-Signing Physician Notes Patient seen and examined independently. Chart reviewed. Case discussed with DIVYAFranck Stuart pending further evaluation. Will need blood transfusion, 1 unit pRBC ordered by ER. Consult Cardiology and GI. Patient may need repeat EGD/Colonoscopy with her acute on chronic anemia (workup from March 2022 unrevealing). Need to again discuss risk of bleed while on Eliquis vs risk of stroke while off Eliquis. Patient suffered a TIA just last month while off Eliquis. (5) CKD (chronic kidney disease), stage III Chronic kidney disease stage 3 subtype: stage 3b (GFR 30-44) Qualified Code(s): N18.32 - Chronic kidney disease, stage 3b
[2022-12-06] MEDS ORDERED: DEXTROSE 50% 50 ML SYRINGE IV PRN (18:49)
[2022-12-06] MEDS ORDERED: POLYETHYLENE (MIRALAX) 17 GM PACK PO PRN (18:49)
[2022-12-06] MEDS ORDERED: GLUCOSE 40% GEL 15 GM TUBE PO PRN (18:49)
[2022-12-06] MEDS ORDERED: CARBOHYDRATES FOR HYPOGLYCEMIA PO PRN (18:49)
[2022-12-06] MEDS ORDERED: GLUCAGON FOR INJ 1 MG VIAL SQ PRN (18:49)
[2022-12-06] MEDS ORDERED: GLUCOSE 10 TAB/TUBE PO PRN (18:49)
[2022-12-06] MEDS ORDERED: LEVALBUTEROL TARTRATE 15 GM HFA.AER.AD INH PRN (19:32)
[2022-12-06] MEDS: SOTALOL HCL 80 MG TAB PO SCH ×2 (20:18→21:49)
[2022-12-06] MEDS: INSULIN ASPART PER UNIT CHARGE SC SCH ×2 (20:19→21:48)
[2022-12-06] MEDS: ACETAMINOPHEN 325 MG TAB PO PRN (20:57)
[2022-12-06] MEDS: ALPRAZolam 0.25 MG TABLET PO SCH (21:48)
[2022-12-06] MEDS: ASPIRIN 81 MG ECTAB PO SCH (21:48)
[2022-12-06] MEDS: allopurinoL 100 MG TAB PO SCH (21:48)
[2022-12-06] MEDS: MONTELUKAST SODIUM 10 MG TABLET PO SCH (21:49)
[2022-12-06 23:21] LABS: Hemoglobin 8.7 g/dl (12.0-16.0)
[2022-12-07] MEDS: LEVOTHYROXINE SODIUM 125 MCG TABLET PO SCH (05:34)
[2022-12-07] MEDS ORDERED: Nursing to Pharmacy Communication SCH (05:45)
[2022-12-07] MEDS ORDERED: INSULIN ASPART PER UNIT CHARGE SC SCH (06:00)
--- NOTE | 2022-12-07 07:35 | Electrocardiogram Report ---
Test Reason : Blood Pressure : / mmHG Vent. Rate : 060 BPM Atrial Rate : 060 BPM P-R Int : 136 ms QRS Dur : 120 ms QT Int : 518 ms P-R-T Axes : 067 140 063 degrees QTc Int : 518 ms Poor data quality, interpretation may be adversely affected AV dual-paced rhythm Abnormal ECG When compared with ECG of 08-NOV-2022 06:27, Vent. rate has decreased BY 2 BPM Confirmed by Elmer Dahl ([id number]) on 12/07/2022 7:34:41 AM Referred By: REFERRED SELF Confirmed By:Royce Dahl
[2022-12-07 07:55] LABS: Basophils # (auto) 0.06 K/uL (0-0.2); Basophils % (auto) 0.7 %; Eosinophils # (auto) 0.55 K/uL (0-0.50); Eosinophils % (auto) 6.3 %; Hematocrit (blood only) 24.3 % (37.0-47.0); Immature Granulocytes # (auto) 0.06 K/uL (0.01-0.20); Immature Granulocytes % (auto) 0.7 %; Lymphocytes # (auto) 1.14 K/uL (1.2-3.4); Lymphocytes % (auto) 13.1 %; Mean Corpuscular Hemoglobin 29.6 pg (25.0-34.0); Mean Corpuscular Hgb Conc 32.9 g/dL (32.0-36.0); Mean Platelet Volume 10.3 fL (9.4-12.4); Monocytes # (auto) 0.89 K/uL (0.11-0.59); Monocytes % (auto) 10.3 %; Neutrophils # (auto) 5.97 K/uL (1.40-6.50); Neutrophils % (auto) 68.9 %; Nucleated RBC # (auto) 0.02 K/uL (0-0.12); Nucleated RBC % (auto) 0.2 %; Platelet Count 180 K/uL (130-400); RDW Coefficient of Variation 18.6 % (11.5-14.5); RDW Standard Deviation 60.5 fL (36.4-46.3); White Blood Count 8.67 K/ul (4.8-10.8)
[2022-12-07 08:17] LABS: BUN Creatinine Ratio 34.8 (10-20); Calcium 8.8 mg/dl (8.6-10.3); Creatinine Clr Calc Pharmacy 30.4 ml/min; Est GFR (African American) 40.1 ml/min; Est GFR (Non-African American) 34.6 ml/min
[2022-12-07] MEDS: FERROUS SULFATE 325 MG TAB PO SCH (08:17)
[2022-12-07] MEDS: ATORVASTATIN 20 MG TAB PO SCH (08:17)
[2022-12-07] MEDS: FOLIC ACID 1 MG TAB PO SCH (08:17)
[2022-12-07] MEDS: CYANOCOBALAMIN (B-12) 100 MCG TABLET PO SCH (08:17)
[2022-12-07] MEDS: SERTRALINE HCL 100 MG TABLET PO SCH (08:17)
[2022-12-07] MEDS: CHOLECALCIFEROL 1,000 UNITS 25 MCG TAB PO SCH (08:17)
[2022-12-07] MEDS: TORSEMIDE 10 MG TAB PO SCH (08:18)
[2022-12-07] MEDS: SOTALOL HCL 80 MG TAB PO SCH ×2 (08:18→21:05)
[2022-12-07] MEDS: LANSOPRAZOLE 15 MG SOLTAB PO SCH (08:18)
[2022-12-07] MEDS: UMECLIDINIUM/VILANTEROL 62.5/25MCG 7 PUFFS/INHALER INH SCH (08:20)
--- NOTE | 2022-12-07 09:37 | Gastrointestinal Consultation ---
Date of Consultation December 07, 2022 Assessment & Plan (1) Anemia: 82 yo female wiht chronic iron def anemia(on oral and IV iron)as well as AF, PHTN, CHF, and TIA on chronic anticoagulation (siwtched in October) now with 2 gm drop in hgb without overt s/s of bleeding. Will plan for a repeat EGD/enteroscopy on Friday. If that is unrevealing, will consider a repeat colonoscopy. THis can also be done as an outpatient. Plan as detailed above History of Present Illness Reason for Consultation: anemia Requesting Physician: Attending Physician: John Natarajan MD History of Present Illness 82 yo female with multiple medical problems including PAF, pulm HTN, DM, PVD, CHF, chronic iron deficiency anemia (on IV iron therapy) and recent TIA (then switched from coumadin to Eloquis last month) who underwent bidirectional endosc opy as well as VCE 8 months ago for iron def anemia. She was admitted with fatigue and mild SOB and found to have hgb of 7.5 (down from 9-10 range within the last 2 months). Her stools are always dark since she is on iron therapy (oral and IV) and she has not had any bright red blood, increase in frequency of stools or consistency, or abd pain, nausea or vomiting. EGD 02/2022 - small fundic gland polyps Colonoscopy 02/2022 - sigmoid diverticulosis, fair prep VCE - ?gastric erosion, otherwise normal She was supposed to have a repeat EGD as an outpatient over thelast few months but had to cancel for various reasons. She received 1 unit of blood and feels good. Allergies Allergy/AdvReac Type Severity Reaction Status Date / Time Sulfa (Sulfonamide Allergy Severe Severe Verified 12/06/22 16:15 Antibiotics) rxn: rash and hives celecoxib Allergy Intermediate Rash/Hives/ Verified 12/06/22 16:15 Itching. cephalexin Allergy Intermediate Rash/Hives/ Verified 12/06/22 16:15 Itching. furosemide Allergy Intermediate Rash/Hives/ Verified 12/06/22 16:15 Itching. gabapentin Allergy Intermediate Rash/Hives/ Verified 12/06/22 16:15 Itching. pregabalin Allergy Intermediate Rash/Hives/ Verified 12/06/22 16:15 Itching. meclizine Allergy Unknown Unknown Verified 12/06/22 16:15 methylprednisolone Allergy Unknown Rash/Hives/ Verified 12/06/22 16:15 Itching. Penicillins Allergy Unknown Unknown. Verified 12/06/22 16:15 prednisone Allergy Unknown Rash/Hives/ Verified 12/06/22 16:15 Itching. vancomycin Allergy Unknown Jodi Verified 12/06/22 16:15 syn. . nickel Allergy Unknown Verified 12/06/22 16:15 dexamethasone AdvReac Intermediate Steroid Verified 12/06/22 16:15 psychosis. Home Medications Medication Instructions Recorded Confirmed Type alprazolam 0.5 mg tablet 0.25 mg PO HS 04/08/19 12/06/22 History lansoprazole 15 mg capsule,delayed 15 mg PO QAM 04/08/19 12/06/22 History release montelukast 10 mg tablet 10 mg PO PM 04/08/19 12/06/22 History ferrous sulfate 325 mg (65 mg 325 mg PO DAILY 06/03/20 12/06/22 History iron) tablet allopurinol 100 mg tablet 200 mg PO HS 11/26/21 12/06/22 History atorvastatin 20 mg tablet 20 mg PO QAM 11/26/21 12/06/22 History cholecalciferol (vitamin D3) 50 100 mcg PO QAM 11/26/21 12/06/22 History mcg (2,000 unit) capsule (Vitamin D3) aspirin 81 mg tablet,delayed 81 mg PO HS 01/04/22 12/06/22 History release levalbuterol tartrate 45 1 puff inhalation Q4 PRN Shortness 08/07/22 12/06/22 History mcg/actuation aerosol inhaler Of Breath (Xopenex HFA) sertraline 100 mg tablet 100 mg PO DAILY 08/07/22 12/06/22 History sotalol 80 mg tablet 40 mg PO AMPM 08/07/22 12/06/22 History cyanocobalamin (vitamin B-12) 100 100 mcg PO DAILY 11/07/22 12/06/22 History mcg tablet (Vitamin B-12) folic acid 1 mg tablet 1 mg PO DAILY 11/07/22 12/06/22 History tiotropium 2.5 mcg-olodaterol 2.5 2 puff inhalation QAM 11/07/22 12/06/22 History mcg/actuation mist for inhalation (Stiolto Respimat) torsemide 10 mg tablet 10 mg PO QAM 11/07/22 12/06/22 History apixaban 2.5 mg tablet (Eliquis) 2.5 mg PO BID #60 tabs 11/13/22 12/06/22 Rx levothyroxine 125 mcg capsule 125 mcg PO DAILY #30 caps 11/13/22 12/06/22 Rx empagliflozin 10 mg tablet 10 mg PO DAILY 12/06/22 12/06/22 History (Jardiance) ipratropium bromide 21 mcg (0.03 2 spray intranasal DAILY 12/06/22 12/06/22 History %) nasal spray Patient History Medical History (Updated 12/06/22 @ 16:48 by Rose Mccormick PA-C) TIFFANY (acute kidney injury) Asthma, moderate persistent Atrial fibrillation and flutter Atrial fibrillation with RVR Atrial flutter Carotid artery aneurysm Chest pain at rest Cholecystitis Cholelithiasis Chronic diastolic (congestive) heart failure CKD (chronic kidney disease), stage III Dehydration Depression DM type 2 (diabetes mellitus, type 2) Elevated brain natriuretic peptide (BNP) level Encounter for pre-operative examination History of tobacco abuse HTN (hypertension) Hypotension Hypothyroidism Leukocytosis Meniere disease Nausea Near syncope Near syncope RADHA (obstructive sleep apnea) Osteoarthritis of right knee Pneumonia Prolonged QT interval Pulmonary emphysema SSS (sick sinus syndrome) TIA (transient ischemic attack) Surgical History H/O sinus surgery History of cholecystectomy History of hysterectomy History of laminectomy History of repair of left rotator cuff Hx of neck surgery Family History Father Diabetes Social History Smoking Status: Never smoker Tobacco Type: Cigarettes packs per day: 1.5; Cigarettes Per Day: 30; Second Hand Exposure: No; Hx Alcohol Use: No Hx Substance Use: No Preferred Language: Eritrean Communication Ability: Effective Operations And Maintenance Manager Required: No Beliefs That Will Affect Care: None marital status: Current Living Situation: Spouse Other Information That Helps Us Care for You: No Feels Safe at Home: Yes Safety Concerns: Feels Safe At This Time Assistive Devices: Cane, Hearing Aid - Bilateral and Walker Review of Systems Review of Systems: All systems reviewed & are unremarkable except as noted in HPI & below Physical Exam Constitutional: WD/WN, vitals as above Eyes: PERRL, conjunctivae normal, anicteric sclerae Neck: trachea midline, no thyromegaly Respiratory: normal respiratory effort, lungs clear to auscultation Cardiovascular: Rate/Rhythm: regular rate Heart Sounds: + murmur Gastrointestinal (Abdomen): normal bowel sounds, soft, nontender, no hepatosplenomegaly Musculoskeletal: no cyanosis or clubbing, extremities motor strength 5/5 Neurologic: CN's II-XI intact bilaterally Results & Data Vital Signs (Past 12 Hours) Vital Signs Temp Pulse Pulse Pulse Resp BP BP 12/07/22 07:30 36.2 C L 61 16 110/65 12/07/22 02:36 36.5 C 59 L 16 93/56 L 12/07/22 01:42 60 12/06/22 23:02 36.3 C L 60 16 105/50 L Pulse Ox O2 Del Method 12/07/22 07:30 93 Room Air 12/07/22 02:36 93 Room Air 12/07/22 01:42 12/06/22 23:02 92 Room Air
[2022-12-07] MEDS: INSULIN ASPART PER UNIT CHARGE SC SCH ×3 (12:25→21:33)
--- NOTE | 2022-12-07 13:36 | Hospitalist Progress Note ---
Date of Service December 07, 2022 Assessment & Plan (1) Anemia: Plan: Acute on chronic anemia Symptomatic anemia Patient is 82-year-old female with PMH DM II, paroxysmal atrial fibrillation, TIA, pulmonary hypertension, secondary hyperparathyroidism, PVD, chronic diastolic heart failure, hypothyroidism, Mnire's disease, RADHA, iron deficiency anemia, CKD III, SSS S/P pacemaker presented to ER with c/o abnormal labs- anemia. Hgb: 7.3 on outpatient labs today. Generalized weakness, SOB, lightheaded Last IV iron on 11/01/22 Colonoscopy 03/11/2022: Few diverticula in sigmoid colon EGD: 03/11/2022: Multiple diminutive sessile fundic gland polyps with no stigmata of recent bleeding found Video capsule: 04/08/2022: Gastric erosions noted, no small bowel abnormality noted In ER Hgb: 7.5 (Hgb 10.6 on 11/18/22 and 9.8 on 10/21/22). Vitals stable. Started on Eliquis 10/2022 S/p transfusion of 1 unit PRBC Repeat Hgb post transfusion 8.7, this AM 8.0 Repeat H&H this evening Hold Eliquis GI consulted - poss. endoscopy on Friday (or as outpt) Cont. to closely monitor H&H (2) Paroxysmal atrial fibrillation: Plan: Hold Eliquis secondary to acute on chronic anemia Continue sotalol Cardiology consulted, will need recommendations on future anticoagulation considerations, risk versus benefit (3) TIA (transient ischemic attack): Plan: TIA 10/2022 and was started on Eliquis Unfortunately patient with acute on chronic anemia as above while on Eliquis Continue atorvastatin, aspirin May need neurology consult (4) DM type 2 (diabetes mellitus, type 2): Plan: A1c: 6.2 on 08/27/2022 Hold home meds NovoLog sliding scale. Monitor BG to further adjust (5) CKD (chronic kidney disease), stage III: Plan: Cr: 1.56 (baseline 1.3-1.6 per record review) Avoid nephrotoxic agents when possible (6) Chronic diastolic (congestive) heart failure: Plan: Appears euvolemic Continue torsemide (7) SSS (sick sinus syndrome): Plan: S/P pacemaker (8) Asthma, moderate persistent: Plan: No acute exacerbation Continue home inhalers, Singulair (9) RADHA (obstructive sleep apnea): Plan: BiPAP at bedtime (10) Hypothyroidism: Plan: Continue levothyroxine (11) Depression: Plan: Continue sertraline DVT Prophylaxis SCDs Full Code Follows with Dr Calvo for routine care Admission and Anticipated Discharge Date Admission Date: December 06, 2022 Subjective Pt seen in follow up of anemia, on eliquis S/p transfusion of 1 unit of pRBC yesterday on admission Currently reports feeling much better since yesterday. Laying in bed in no acute distress. She is very hard of hearing. Eating ice cream with her family at the bedside. Seen by GI this morning, likely endoscopy on Friday (or as outpatient) Patient currently denies any fever chills chest pain shortness of breath, denies abdominal pain Closely monitor H&H Review of Systems Review of Systems: All systems reviewed & are unremarkable except as noted in Subjective Physical Exam Physical Exam: General: elderly frail F in NAD Head: normocephalic, atraumatic Eyes: EOMI, PERRL ENT: normal inspection external ears, nose, mucous membranes moist Neck: supple Lungs: clear, no respiratory distress, no wheezing/rhonchi/rales CV: RRR, + murmur, no pretibial edema Abd: normal BS, soft, non-tender Ext: moves extremities Neuro: A&O x 3, speech fluent, no facial asymmetry, very hard of hearing, moves extremities Skin: warm, dry Results & Data Results & Data Vital Signs (Past 12 Hours) Vital Signs Temp Pulse Pulse Pulse Pulse Resp BP 12/07/22 12:00 36.6 C 61 16 100/55 L 12/07/22 10:25 36.6 C 60 16 92/50 L 12/07/22 07:30 36.2 C L 61 16 110/65 12/07/22 02:36 36.5 C 59 L 16 12/07/22 01:42 60 BP Pulse Ox O2 Del Method 12/07/22 12:00 94 Room Air 12/07/22 10:25 96 Room Air 12/07/22 07:30 93 Room Air 12/07/22 02:36 93/56 L 93 Room Air 12/07/22 01:42 Laboratory Results 12/07/22 12/07/22 12/07/22 Range/Units 11:01 06:09 06:09 WBC 8.67 (4.8-10.8) K/ul RBC 2.70 L (4.20-5.40) M/uL Hgb 8.0 L (12.0-16.0) g/dl Hct 24.3 L (37.0-47.0) % MCV 90.0 (80.0-100.0) fL MCH 29.6 (25.0-34.0) pg MCHC 32.9 (32.0-36.0) g/dL RDW Std Deviation 60.5 H (36.4-46.3) fL RDW Coeff of Francisco Javier 18.6 H (11.5-14.5) % Plt Count 180 (130-400) K/uL MPV 10.3 (9.4-12.4) fL Immature Gran % (Auto) 0.7 % Neut % (Auto) 68.9 % Lymph % (Auto) 13.1 % [place] % (Auto) 10.3 % Eos % (Auto) 6.3 % Baso % (Auto) 0.7 % Neut # (Auto) 5.97 (1.40-6.50) K/uL Lymph # (Auto) 1.14 L (1.2-3.4) K/uL [place] # (Auto) 0.89 H (0.11-0.59) K/uL Eos # (Auto) 0.55 H (0-0.50) K/uL Baso # (Auto) 0.06 (0-0.2) K/uL Immature Gran # (Auto) 0.06 (0.01-0.20) K/uL Absolute Nucleated RBC 0.02 (0-0.12) K/uL Nucleated RBC % (auto) 0.2 % Polychromasia Ovalocytes PT (9.0-12.0) Seconds INR (0.9-1.1) APTT (21.0-31.0) Seconds PTT Ratio Sodium 139 (136-145) mmol/L Potassium 4.0 (3.5-5.1) mmol/L Chloride 109 H (98-107) mmol/L Carbon Dioxide 21 (21-32) mmol/L Anion Gap 9 (3-11) BUN 49 H (6-23) mg/dl Creatinine 1.41 H (0.6-1.2) mg/dl Est Cr Clr Drug Dosing 30.4 ml/min Est GFR ( Amer) 40.1 ml/min Est GFR (Non-Af Amer) 34.6 ml/min BUN/Creatinine Ratio 34.8 H (10-20) Glucose 114 H (70-99(Fasting)) mg/dl POC Glucose 197 H (70-99) mg/dl Calcium 8.8 (8.6-10.3) mg/dl Total Bilirubin (0.2-1.0) mg/dl AST (13-39) U/L ALT (7-52) U/L Alkaline Phosphatase (34-104) U/L Total Protein (6.0-8.3) gm/dl Albumin (3.4-5.0) gm/dl Globulin (2.5-4.0) gm/dl Albumin/Globulin Ratio (0.9-2) SARS-CoV-2, RNA, NAAT (NEGATIVE) Blood Type Antibody Screen Crossmatch 12/07/22 12/06/22 12/06/22 Range/Units 05:37 22:59 21:11 WBC (4.8-10.8) K/ul RBC (4.20-5.40) M/uL Hgb 8.7 L (12.0-16.0) g/dl Hct 26.0 L (37.0-47.0) % MCV (80.0-100.0) fL MCH (25.0-34.0) pg MCHC (32.0-36.0) g/dL RDW Std Deviation (36.4-46.3) fL RDW Coeff of Francisco Javier (11.5-14.5) % Plt Count (130-400) K/uL MPV (9.4-12.4) fL Immature Gran % (Auto) % Neut % (Auto) % Lymph % (Auto) % [place] % (Auto) % Eos % (Auto) % Baso % (Auto) % Neut # (Auto) (1.40-6.50) K/uL Lymph # (Auto) (1.2-3.4) K/uL [place] # (Auto) (0.11-0.59) K/uL Eos # (Auto) (0-0.50) K/uL Baso # (Auto) (0-0.2) K/uL Immature Gran # (Auto) (0.01-0.20) K/uL Absolute Nucleated RBC (0-0.12) K/uL Nucleated RBC % (auto) % Polychromasia Ovalocytes PT (9.0-12.0) Seconds INR (0.9-1.1) APTT (21.0-31.0) Seconds PTT Ratio Sodium (136-145) mmol/L Potassium (3.5-5.1) mmol/L Chloride (98-107) mmol/L Carbon Dioxide (21-32) mmol/L Anion Gap (3-11) BUN (6-23) mg/dl Creatinine (0.6-1.2) mg/dl Est Cr Clr Drug Dosing ml/min Est GFR ( Amer) ml/min Est GFR (Non-Af Amer) ml/min BUN/Creatinine Ratio (10-20) Glucose (70-99(Fasting)) mg/dl POC Glucose 122 H 143 H (70-99) mg/dl Calcium (8.6-10.3) mg/dl Total Bilirubin (0.2-1.0) mg/dl AST (13-39) U/L ALT (7-52) U/L Alkaline Phosphatase (34-104) U/L Total Protein (6.0-8.3) gm/dl Albumin (3.4-5.0) gm/dl Globulin (2.5-4.0) gm/dl Albumin/Globulin Ratio (0.9-2) SARS-CoV-2, RNA, NAAT (NEGATIVE) Blood Type Antibody Screen Crossmatch 12/06/22 12/06/22 12/06/22 Range/Units 20:14 15:21 14:31 WBC (4.8-10.8) K/ul RBC (4.20-5.40) M/uL Hgb (12.0-16.0) g/dl Hct (37.0-47.0) % MCV (80.0-100.0) fL MCH (25.0-34.0) pg MCHC (32.0-36.0) g/dL RDW Std Deviation (36.4-46.3) fL RDW Coeff of Francisco Javier (11.5-14.5) % Plt Count (130-400) K/uL MPV (9.4-12.4) fL Immature Gran % (Auto) % Neut % (Auto) % Lymph % (Auto) % [place] % (Auto) % Eos % (Auto) % Baso % (Auto) % Neut # (Auto) (1.40-6.50) K/uL Lymph # (Auto) (1.2-3.4) K/uL [place] # (Auto) (0.11-0.59) K/uL Eos # (Auto) (0-0.50) K/uL Baso # (Auto) (0-0.2) K/uL Immature Gran # (Auto) (0.01-0.20) K/uL Absolute Nucleated RBC (0-0.12) K/uL Nucleated RBC % (auto) % Polychromasia Ovalocytes PT (9.0-12.0) Seconds INR (0.9-1.1) APTT (21.0-31.0) Seconds PTT Ratio Sodium 137 (136-145) mmol/L Potassium 3.9 (3.5-5.1) mmol/L Chloride 107 (98-107) mmol/L Carbon Dioxide 23 (21-32) mmol/L Anion Gap 7 (3-11) BUN 50 H (6-23) mg/dl Creatinine 1.56 H (0.6-1.2) mg/dl Est Cr Clr Drug Dosing 27.5 ml/min Est GFR ( Amer) 35.5 ml/min Est GFR (Non-Af Amer) 30.6 ml/min BUN/Creatinine Ratio 32.1 H (10-20) Glucose 120 H (70-99(Fasting)) mg/dl POC Glucose 98 (70-99) mg/dl Calcium 9.0 (8.6-10.3) mg/dl Total Bilirubin 0.4 (0.2-1.0) mg/dl AST 31 (13-39) U/L ALT 16 (7-52) U/L Alkaline Phosphatase 176 H (34-104) U/L Total Protein 6.7 (6.0-8.3) gm/dl Albumin 3.8 (3.4-5.0) gm/dl Globulin 2.9 (2.5-4.0) gm/dl Albumin/Globulin Ratio 1.3 (0.9-2) SARS-CoV-2, RNA, NAAT NEGATIVE (NEGATIVE) Blood Type Antibody Screen Crossmatch 12/06/22 12/06/22 12/06/22 Range/Units 14:31 14:31 14:31 WBC 12.17 H (4.8-10.8) K/ul RBC 2.59 L (4.20-5.40) M/uL Hgb 7.5 L (12.0-16.0) g/dl Hct 23.7 L (37.0-47.0) % MCV 91.5 (80.0-100.0) fL MCH 29.0 (25.0-34.0) pg MCHC 31.6 L (32.0-36.0) g/dL RDW Std Deviation 66.4 H (36.4-46.3) fL RDW Coeff of Francisco Javier 20.1 H (11.5-14.5) % Plt Count 225 (130-400) K/uL MPV 10.2 (9.4-12.4) fL Immature Gran % (Auto) 1.0 % Neut % (Auto) 71.0 % Lymph % (Auto) 11.9 % [place] % (Auto) 9.8 % Eos % (Auto) 5.8 % Baso % (Auto) 0.5 % Neut # (Auto) 8.65 H (1.40-6.50) K/uL Lymph # (Auto) 1.45 (1.2-3.4) K/uL [place] # (Auto) 1.19 H (0.11-0.59) K/uL Eos # (Auto) 0.70 H (0-0.50) K/uL Baso # (Auto) 0.06 (0-0.2) K/uL Immature Gran # (Auto) 0.12 (0.01-0.20) K/uL Absolute Nucleated RBC 0.07 (0-0.12) K/uL Nucleated RBC % (auto) 0.6 % Polychromasia 1+ Ovalocytes 1+ PT 11.9 (9.0-12.0) Seconds INR 1.1 (0.9-1.1) APTT 32.0 H (21.0-31.0) Seconds PTT Ratio 1.2 Sodium (136-145) mmol/L Potassium (3.5-5.1) mmol/L Chloride (98-107) mmol/L Carbon Dioxide (21-32) mmol/L Anion Gap (3-11) BUN (6-23) mg/dl Creatinine (0.6-1.2) mg/dl Est Cr Clr Drug Dosing ml/min Est GFR ( Amer) ml/min Est GFR (Non-Af Amer) ml/min BUN/Creatinine Ratio (10-20) Glucose (70-99(Fasting)) mg/dl POC Glucose (70-99) mg/dl Calcium (8.6-10.3) mg/dl Total Bilirubin (0.2-1.0) mg/dl AST (13-39) U/L ALT (7-52) U/L Alkaline Phosphatase (34-104) U/L Total Protein (6.0-8.3) gm/dl Albumin (3.4-5.0) gm/dl Globulin (2.5-4.0) gm/dl Albumin/Globulin Ratio (0.9-2) SARS-CoV-2, RNA, NAAT (NEGATIVE) Blood Type O Positive Antibody Screen NEGATIVE Crossmatch See Detail Medications Administered Current Inpatient Medications Acetaminophen (Acetaminophen 325 Mg Tab) 650 mg PO Q4H PRN PRN Reason: Pain or Fever Stop: 01/05/23 18:48 Last Admin: 12/06/22 20:57 Dose: 650 mg Allopurinol (Allopurinol 100 Mg Tab) 200 mg PO HS JULIO CESAR Stop: 01/05/23 20:59 Last Admin: 12/06/22 21:48 Dose: 200 mg Alprazolam (Alprazolam 0.25 Mg Tablet) 0.25 mg PO HS JULIO CESAR Stop: 01/05/23 20:59 Last Admin: 12/06/22 21:48 Dose: 0.25 mg Aspirin (Aspirin 81 Mg Ectab) 81 mg PO HS JULIO CESAR Stop: 01/05/23 20:59 Last Admin: 12/06/22 21:48 Dose: 81 mg Atorvastatin Calcium (Atorvastatin 20 Mg Tab) 20 mg PO QA JULIO CESAR Stop: 01/06/23 08:59 Last Admin: 12/07/22 08:17 Dose: 20 mg Cyanocobalamin (Cyanocobalamin (B-12) 100 Mcg Tablet) 100 mcg PO DAILY JULIO CESAR Stop: 01/06/23 08:59 Last Admin: 12/07/22 08:17 Dose: 100 mcg Dextrose (Dextrose 50% 50 Ml Syringe) 25 - 50 ml IV UD PRN; Protocol PRN Reason: Hypoglycemia Protocol Stop: 01/05/23 18:48 Ferrous Sulfate (Ferrous Sulfate 325 Mg Tab) 325 mg PO DAILY JULIO CESAR Stop: 01/06/23 08:59 Last Admin: 12/07/22 08:17 Dose: 325 mg Folic Acid (Folic Acid 1 Mg Tab) 1 mg PO DAILY JULIO CESAR Stop: 01/06/23 08:59 Last Admin: 12/07/22 08:17 Dose: 1 mg Glucagon (Glucagon For Inj 1 Mg Vial) 1 mg SQ UD PRN; Protocol PRN Reason: Hypoglycemia Protocol Stop: 01/05/23 18:48 Glucose (Glucose 10 Tab/Tube) 4 - 8 tab PO UD PRN; Protocol PRN Reason: Hypoglycemia Treatment Stop: 01/05/23 18:48 Glucose (Glucose 40% Gel 15 Gm Tube) 15 - 30 gm PO UD PRN; Protocol PRN Reason: Hypoglycemia Protocol Stop: 01/05/23 18:48 Insulin Aspart (Insulin Aspart Per Unit Charge) 0 units SC ACHS [facility] Stop: 01/06/23 11:29 Last Admin: 12/07/22 12:25 Dose: 3 units Lansoprazole (Lansoprazole 15 Mg Soltab) 15 mg PO QAM JULIO CESAR Stop: 01/06/23 08:59 Last Admin: 12/07/22 08:18 Dose: 15 mg Levalbuterol HCl (Levalbuterol Tartrate 15 Gm Hfa.Aer.Ad) 1 puffs INH Q4R PRN PRN Reason: Shortness Of Breath Stop: 01/05/23 19:31 Levothyroxine Sodium (Levothyroxine Sodium 125 Mcg Tablet) 125 mcg PO DAILYBB JULIO CESAR Stop: 01/06/23 06:29 Last Admin: 12/07/22 05:34 Dose: 125 mcg Miscellaneous (Carbohydrates For Hypoglycemia ) 15 - 30 gm PO UD PRN PRN Reason: Hypoglycemia Protocol Stop: 01/05/23 18:48 Montelukast Sodium (Montelukast Sodium 10 Mg Tablet) 10 mg PO PM [facility] Stop: 01/05/23 20:59 Last Admin: 12/06/22 21:49 Dose: 10 mg Polyethylene Glycol (Polyethylene (Miralax) 17 Gm Pack) 17 gm PO DAILY PRN PRN Reason: Constipation Stop: 01/05/23 18:48 Sertraline HCl (Sertraline Hcl 100 Mg Tablet) 100 mg PO DAILY [facility] Stop: 01/06/23 08:59 Last Admin: 12/07/22 08:17 Dose: 100 mg Sotalol HCl (Sotalol Hcl 80 Mg Tab) 40 mg PO Q12H [facility] Stop: 01/05/23 20:59 Last Admin: 12/07/22 08:18 Dose: 40 mg Torsemide (Torsemide 10 Mg Tab) 10 mg PO QAM [facility] Stop: 01/06/23 08:59 Last Admin: 12/07/22 08:18 Dose: 10 mg Umeclidinium/Vilanterol (Umeclidinium/Vilanterol 62.5/25mcg 7 Puffs/Inhaler) 1 puffs INH QAM [facility] Stop: 01/06/23 08:59 Last Admin: 12/07/22 08:20 Dose: 1 puffs Vitamin D (Cholecalciferol 1,000 Units 25 Mcg Tab) 4,000 units PO QAM [facility] Stop: 01/06/23 08:59 Last Admin: 12/07/22 08:17 Dose: 4,000 units (5) CKD (chronic kidney disease), stage III Chronic kidney disease stage 3 subtype: stage 3b (GFR 30-44) Qualified Code(s): N18.32 - Chronic kidney disease, stage 3b
--- NOTE | 2022-12-07 15:57 | Cardiology Consultation ---
Date of Consultation December 07, 2022 Assessment & Plan (1) Anemia: 1. Anemia with 2 g drop in hemoglobin compared to October, 2. Sick sinus syndrome, paroxysmal atrial fibrillation, history of dual-chamber permanent pacemaker 3. h/o TIA 4. Chronic diastolic heart failure, pulmonary hypertension -Posttransfusion of 1 unit packed red blood cells, hemoglobin has improved from 7.5-8.7, most recent measurement 8. -Agree with holding Eliquis. Aspirin 81 mg daily continued. Future considerations include proceeding without aspirin but on Eliquis. -GI input noted and appreciated. Plan for repeat EGD on Friday. -Per past pacemaker interrogations, her atrial fibrillation burden is low, but did have a TIA event a month ago. Future considerations include consultation with the structural heart disease/electrophysiology at [facility] for consideration of percutaneous left atrial appendage occlusion (Watchman device) however proceeding with this procedure requires the patient to be on anticoagulation for a month prior to the procedure, a month after work, and then 6 months of aspirin and clopidogrel, which often times is not feasible in a patient who is having ongoing bleeding issues. -Continue rhythm control strategy with sotalol 40 mg twice daily. Patient is euvolemic at present. Continue prior to hospital treatment torsemide 10 mg daily. History of Present Illness Attending Physician: John Natarajan MD History of Present Illness Inga Barakat is an 82-year-old female seen in cardiology consultation per the request of Dr. Decker for management of paroxysmal atrial fibrillation and anemia. She had previously been off of anticoagulation with Eliquis due to concerns of anemia. She was hospitalized about a month ago in October, with symptoms suggesting of a TIA. She was therefore placed back on Eliquis, appropriately dosed at 2.5 mg twice daily given her age of over 80 years old, and her creatinine 1.5-2 mg/dL. She recently noted generalized weakness easy fatigability and progressive shortness of breath over a 1 week duration. Blood work performed by hematology on 12/06/2022 revealed worsening anemia, hemoglobin of 7.3 g/dL as an outpatient, down from 10.6 on 11/18/2022. Patient therefore referred for admission. She most recently received an outpatient iron sucrose infusion on 11/01/2022. She had been hospitalized in February, for acute on chronic anemia. EGD and colonoscopy 03/11/2022 without source of bleeding. Capsule endoscopy performed March, revealed gastric erosions. Problem List: 1.S/P dual lead pacemaker implant in Jul 2022. [employer] [place] XT MRI 2.Paroxysmal atrial fibrillation on sotalol. 3.Diastolic heart failure with preserved ejection fraction with moderate/severe MR and severe TR 4.Severe pulm hypertension mixed etiology including left heart source 5.History of asthma 6.HTN 7.DM 8.Chronic anemia Allergies Allergy/AdvReac Type Severity Reaction Status Date / Time Sulfa (Sulfonamide Allergy Severe Severe Verified 12/06/22 16:15 Antibiotics) rxn: rash and hives celecoxib Allergy Intermediate Rash/Hives/ Verified 12/06/22 16:15 Itching. cephalexin Allergy Intermediate Rash/Hives/ Verified 12/06/22 16:15 Itching. furosemide Allergy Intermediate Rash/Hives/ Verified 12/06/22 16:15 Itching. gabapentin Allergy Intermediate Rash/Hives/ Verified 12/06/22 16:15 Itching. pregabalin Allergy Intermediate Rash/Hives/ Verified 12/06/22 16:15 Itching. meclizine Allergy Unknown Unknown Verified 12/06/22 16:15 methylprednisolone Allergy Unknown Rash/Hives/ Verified 12/06/22 16:15 Itching. Penicillins Allergy Unknown Unknown. Verified 12/06/22 16:15 prednisone Allergy Unknown Rash/Hives/ Verified 12/06/22 16:15 Itching. vancomycin Allergy Unknown Jodi Verified 12/06/22 16:15 syn. . nickel Allergy Unknown Verified 12/06/22 16:15 dexamethasone AdvReac Intermediate Steroid Verified 12/06/22 16:15 psychosis. Home Medications Medication Instructions Recorded Confirmed Type alprazolam 0.5 mg tablet 0.25 mg PO HS 04/08/19 12/06/22 History lansoprazole 15 mg capsule,delayed 15 mg PO QAM 04/08/19 12/06/22 History release montelukast 10 mg tablet 10 mg PO PM 04/08/19 12/06/22 History ferrous sulfate 325 mg (65 mg 325 mg PO DAILY 06/03/20 12/06/22 History iron) tablet allopurinol 100 mg tablet 200 mg PO HS 11/26/21 12/06/22 History atorvastatin 20 mg tablet 20 mg PO QAM 11/26/21 12/06/22 History cholecalciferol (vitamin D3) 50 100 mcg PO QAM 11/26/21 12/06/22 History mcg (2,000 unit) capsule (Vitamin D3) aspirin 81 mg tablet,delayed 81 mg PO HS 01/04/22 12/06/22 History release levalbuterol tartrate 45 1 puff inhalation Q4 PRN Shortness 08/07/22 12/06/22 History mcg/actuation aerosol inhaler Of Breath (Xopenex HFA) sertraline 100 mg tablet 100 mg PO DAILY 08/07/22 12/06/22 History sotalol 80 mg tablet 40 mg PO AMPM 08/07/22 12/06/22 History cyanocobalamin (vitamin B-12) 100 100 mcg PO DAILY 11/07/22 12/06/22 History mcg tablet (Vitamin B-12) folic acid 1 mg tablet 1 mg PO DAILY 11/07/22 12/06/22 History tiotropium 2.5 mcg-olodaterol 2.5 2 puff inhalation QAM 11/07/22 12/06/22 History mcg/actuation mist for inhalation (Stiolto Respimat) torsemide 10 mg tablet 10 mg PO QAM 11/07/22 12/06/22 History apixaban 2.5 mg tablet (Eliquis) 2.5 mg PO BID #60 tabs 11/13/22 12/06/22 Rx levothyroxine 125 mcg capsule 125 mcg PO DAILY #30 caps 11/13/22 12/06/22 Rx empagliflozin 10 mg tablet 10 mg PO DAILY 12/06/22 12/06/22 History (Jardiance) ipratropium bromide 21 mcg (0.03 2 spray intranasal DAILY 12/06/22 12/06/22 History %) nasal spray Patient History Medical History TIFFANY (acute kidney injury) Asthma, moderate persistent Atrial fibrillation and flutter Atrial fibrillation with RVR Atrial flutter Carotid artery aneurysm Chest pain at rest Cholecystitis Cholelithiasis Chronic diastolic (congestive) heart failure CKD (chronic kidney disease), stage III Dehydration Depression DM type 2 (diabetes mellitus, type 2) Elevated brain natriuretic peptide (BNP) level Encounter for pre-operative examination History of tobacco abuse HTN (hypertension) Hypotension Hypothyroidism Leukocytosis Meniere disease Nausea Near syncope Near syncope RADHA (obstructive sleep apnea) Osteoarthritis of right knee Pneumonia Prolonged QT interval Pulmonary emphysema SSS (sick sinus syndrome) TIA (transient ischemic attack) Surgical History H/O sinus surgery History of cholecystectomy History of hysterectomy History of laminectomy History of repair of left rotator cuff Hx of neck surgery Family History Father Diabetes Social History Smoking Status: Never smoker Tobacco Type: Cigarettes packs per day: 1.5; Cigarettes Per Day: 30; Second Hand Exposure: No; Hx Alcohol Use: No Hx Substance Use: No Preferred Language: Icelandic Communication Ability: Effective Tamper Operator Required: No Beliefs That Will Affect Care: None marital status: Current Living Situation: Spouse Other Information That Helps Us Care for You: No Feels Safe at Home: Yes Safety Concerns: Feels Safe At This Time Assistive Devices: Cane, Hearing Aid - Bilateral and Walker Review of Systems Review of Systems: All systems reviewed & are unremarkable except as noted in HPI & below Physical Exam Constitutional: WD/WN, vitals as above Respiratory: normal respiratory effort, lungs clear to auscultation Cardiovascular: RRR, no murmur, no edema Gastrointestinal (Abdomen): normal bowel sounds, soft, nontender, no hepatosplenomegaly Neurologic: PERRL, EOMI, accommodation nl, no face palsy, no dysarthria Psychiatric: A+Ox3, euthymic affect Results & Data Vital Signs (Past 12 Hours) Vital Signs Temp Pulse Pulse Resp BP BP Pulse Ox 12/07/22 14:47 36.5 C 62 18 107/64 94 12/07/22 13:35 36.5 C 60 16 110/65 95 12/07/22 12:00 36.6 C 61 16 100/55 L 94 12/07/22 10:25 36.6 C 60 16 92/50 L 96 12/07/22 07:30 36.2 C L 61 16 110/65 93 O2 Del Method 12/07/22 14:47 Room Air 12/07/22 13:35 Room Air 12/07/22 12:00 Room Air 12/07/22 10:25 Room Air 12/07/22 07:30 Room Air Laboratory Results CBC 12/06/22 12/07/22 Range/Units 22:59 06:09 WBC 8.67 (4.8-10.8) K/ul RBC 2.70 L (4.20-5.40) M/uL Hgb 8.7 L 8.0 L (12.0-16.0) g/dl Hct 26.0 L 24.3 L (37.0-47.0) % Plt Count 180 (130-400) K/uL Neut # (Auto) 5.97 (1.40-6.50) K/uL Lymph # (Auto) 1.14 L (1.2-3.4) K/uL [place] # (Auto) 0.89 H (0.11-0.59) K/uL Eos # (Auto) 0.55 H (0-0.50) K/uL Baso # (Auto) 0.06 (0-0.2) K/uL Comprehensive Metabolic Panel 12/07/22 Range/Units 06:09 Sodium 139 (136-145) mmol/L Potassium 4.0 (3.5-5.1) mmol/L Chloride 109 H (98-107) mmol/L Carbon Dioxide 21 (21-32) mmol/L BUN 49 H (6-23) mg/dl Creatinine 1.41 H (0.6-1.2) mg/dl Glucose 114 H (70-99(Fasting)) mg/dl Calcium 8.8 (8.6-10.3) mg/dl Intake and Output 12/07/22 12/07/22 12/07/22 06:59 14:59 22:59 Intake Total 480 / 480 Output Total Balance 479 / 479 Intake: Oral 480 / 480 Output: # Bowel Movements Other: Other Intake Source npo @ midnight student charted this Diagnostic Findings EKG performed today 12/06/2022 and interpret independently: Sinus rhythm with AV sequential paced rhythm at 60 bpm. telemetry reveals the same. Summary of transthoracic echocardiogram performed as outpatient 10/21/2022: The LV wall thickness is mildly increased (concentric). The left ventricular wall motion is normal. Calculated LV ejection Fraction = 65% (bi-plane method of discs). The right ventricle appears to be at least mildly dilated on technically limited visualization. The right ventricular systolic function is mildly reduced . At least mild prolapse of the anterior mitral valve leaflet is present. No Severe mitral regurgitation is present. The mitral regurgitation jet is eccentric and posteriorly directed impinging on the posterior wall of the left atrium. Severe tricuspid regurgitation is present. Dilated IVC with reduced collapsability with sniff indicates an elevated right atrial pressure of 15 mmHg. Severe pulmonary hypertension is present. The estimated pulmonary artery systolic pressure is 76 mm Hg. Compared to the prior study dated 08/01/2022, ongoing severe pulmonary hypertension is present.
[2022-12-07 16:50] LABS: Hemoglobin 8.7 g/dl (12.0-16.0)
[2022-12-07] MEDS: ALPRAZolam 0.25 MG TABLET PO SCH (21:04)
[2022-12-07] MEDS: allopurinoL 100 MG TAB PO SCH (21:04)
[2022-12-07] MEDS: ASPIRIN 81 MG ECTAB PO SCH (21:07)
[2022-12-07] MEDS: MONTELUKAST SODIUM 10 MG TABLET PO SCH (21:07)
[2022-12-07] MEDS: ACETAMINOPHEN 325 MG TAB PO PRN (23:16)
[2022-12-08 01:19] LABS: Hematocrit (blood only) 24.4 % (37.0-47.0); Hemoglobin 8.1 g/dl (12.0-16.0)
[2022-12-08] MEDS: LEVOTHYROXINE SODIUM 125 MCG TABLET PO SCH (05:33)
[2022-12-08 07:27] LABS: Hematocrit (blood only) 24.9 % (37.0-47.0); Hemoglobin 8.4 g/dl (12.0-16.0)
[2022-12-08 07:44] LABS: BUN Creatinine Ratio 32.6 (10-20); Calcium 8.7 mg/dl (8.6-10.3); Creatinine Clr Calc Pharmacy 30.5 ml/min; Est GFR (African American) 40.1 ml/min; Est GFR (Non-African American) 34.6 ml/min; Magnesium 2.2 mg/dl (1.7-2.4); Phosphorus 4.3 mg/dl (2.5-4.9); Potassium 4.1 mmol/L (3.5-5.1)
[2022-12-08] MEDS: UMECLIDINIUM/VILANTEROL 62.5/25MCG 7 PUFFS/INHALER INH SCH (08:38)
[2022-12-08] MEDS: FOLIC ACID 1 MG TAB PO SCH (08:38)
[2022-12-08] MEDS: FERROUS SULFATE 325 MG TAB PO SCH (08:39)
[2022-12-08] MEDS: SERTRALINE HCL 100 MG TABLET PO SCH (08:39)
[2022-12-08] MEDS: ATORVASTATIN 20 MG TAB PO SCH (08:39)
[2022-12-08] MEDS: LANSOPRAZOLE 15 MG SOLTAB PO SCH (08:40)
[2022-12-08] MEDS: SOTALOL HCL 80 MG TAB PO SCH (08:40)
[2022-12-08] MEDS: CYANOCOBALAMIN (B-12) 100 MCG TABLET PO SCH (08:40)
[2022-12-08] MEDS: CHOLECALCIFEROL 1,000 UNITS 25 MCG TAB PO SCH (08:40)
[2022-12-08] MEDS: TORSEMIDE 10 MG TAB PO SCH (08:41)
[2022-12-08] MEDS: INSULIN ASPART PER UNIT CHARGE SC SCH ×4 (08:47→20:10)
--- NOTE | 2022-12-08 14:30 | Cardiology Progress Note ---
Date of Service December 08, 2022 Assessment & Plan (1) Anemia: Plan: 1. Anemia with 2 g drop in hemoglobin compared to October, 2. Sick sinus syndrome, paroxysmal atrial fibrillation, history of dual-chamber permanent pacemaker 3. h/o TIA 4. Chronic diastolic heart failure, pulmonary hypertension -Posttransfusion of 1 unit packed red blood cells, hemoglobin has improved. -Agree with holding Eliquis. Aspirin 81 mg daily continued. Future considerations include proceeding without aspirin but and resuming Eliquis. -GI input noted and appreciated. Plan for repeat EGD on Friday. -Per past pacemaker interrogations, her atrial fibrillation burden is low, but did have a TIA event a month ago. Future considerations include consultation with the structural heart disease/electrophysiology at [facility] for consideration of percutaneous left atrial appendage occlusion (Watchman device) however proceeding with this procedure requires the patient to be on anticoagulation for a month prior to the procedure, a month after work, and then 6 months of aspirin and clopidogrel, which often times is not feasible in a patient who is having ongoing bleeding issues. -Continue rhythm control strategy with sotalol 40 mg twice daily. Patient is euvolemic at present. Continue prior to hospital treatment torsemide 10 mg daily. Admission and Anticipated Discharge Date Admission Date: December 06, 2022 Subjective Patient seen in cardiology follow-up of chief complaint of anemia, history of tachybradycardia syndrome, paroxysmal atrial fibrillation, dual-chamber permanent pacemaker, TIA. Patient notes headache overnight last night that is improved, but still there to a subtle degree. Hemoglobin relatively stable. Telemetry reveals sinus rhythm with AV sequential pacing in the 60s. Physical Exam Constitutional: WD/WN, vitals as above Respiratory: normal respiratory effort, lungs clear to auscultation Cardiovascular: RRR, no murmur, no edema Gastrointestinal (Abdomen): normal bowel sounds, soft, nontender, no hepatosplenomegaly Neurologic: PERRL, EOMI, accommodation nl, no face palsy, no dysarthria Psychiatric: A+Ox3, euthymic affect Results & Data Vital Signs (Past 12 Hours) Vital Signs Temp Pulse Pulse Pulse Resp BP BP 12/08/22 12:40 36.4 C L 64 16 120/60 12/08/22 10:00 12/08/22 06:01 60 12/08/22 07:35 36.4 C L 64 16 120/70 12/08/22 03:39 36.4 C L 60 16 103/62 Pulse Ox O2 Del Method 12/08/22 12:40 97 Room Air 12/08/22 10:00 Room Air 12/08/22 06:01 12/08/22 07:35 96 Room Air 12/08/22 03:39 96 Room Air Laboratory Results CBC 12/07/22 12/08/22 12/08/22 Range/Units 16:14 01:01 06:31 Hgb 8.7 L 8.1 L 8.4 L (12.0-16.0) g/dl Hct 26.0 L 24.4 L 24.9 L (37.0-47.0) % Comprehensive Metabolic Panel 12/08/22 Range/Units 06:31 Sodium 139 (136-145) mmol/L Potassium 4.1 (3.5-5.1) mmol/L Chloride 109 H (98-107) mmol/L Carbon Dioxide 23 (21-32) mmol/L BUN 46 H (6-23) mg/dl Creatinine 1.41 H (0.6-1.2) mg/dl Glucose 113 H (70-99(Fasting)) mg/dl Calcium 8.7 (8.6-10.3) mg/dl Intake and Output 12/07/22 12/08/22 12/08/22 22:59 06:59 14:59 Intake Total 640 / 1320 200 / 1320 540 / 540 Balance 640 / 1319 200 / 1319 540 / 540 Intake: Oral 640 / 1320 200 / 1320 540 / 540 Other: Weight 75 kg Weight Measurement Method Built in [facility]
--- NOTE | 2022-12-08 15:22 | Hospitalist Progress Note ---
Date of Service December 08, 2022 Assessment & Plan (1) Anemia: Plan: Acute on chronic anemia Symptomatic anemia Patient is 82-year-old female with PMH DM II, paroxysmal atrial fibrillation, TIA, pulmonary hypertension, secondary hyperparathyroidism, PVD, chronic diastolic heart failure, hypothyroidism, Mnire's disease, RADHA, iron deficiency anemia, CKD III, SSS S/P pacemaker presented to ER with c/o abnormal labs- anemia. Hgb: 7.3 on outpatient labs today. Generalized weakness, SOB, lightheaded Last IV iron on 11/01/22 Colonoscopy 03/11/2022: Few diverticula in sigmoid colon EGD: 03/11/2022: Multiple diminutive sessile fundic gland polyps with no stigmata of recent bleeding found Video capsule: 04/08/2022: Gastric erosions noted, no small bowel abnormality noted In ER Hgb: 7.5 (Hgb 10.6 on 11/18/22 and 9.8 on 10/21/22). Vitals stable. Started on Eliquis 10/2022 S/p transfusion of 1 unit PRBC Repeat Hgb post transfusion 8.7, then next AM 8.0 Hold Eliquis for now GI consulted - plan for poss. endoscopy tomorrow - on Friday Cont. to closely monitor H&H (2) Paroxysmal atrial fibrillation: Plan: Hold Eliquis secondary to acute on chronic anemia Continue sotalol Cardiology consulted, will need recommendations on future anticoagulation considerations, risk versus benefit (3) TIA (transient ischemic attack): Plan: TIA 10/2022 and was started on Eliquis Unfortunately patient with acute on chronic anemia as above while on Eliquis Continue atorvastatin, aspirin May need neurology consult (4) DM type 2 (diabetes mellitus, type 2): Plan: A1c: 6.2 on 08/27/2022 Hold home meds NovoLog sliding scale. Monitor BG to further adjust (5) CKD (chronic kidney disease), stage III: Plan: Cr: 1.56 (baseline 1.3-1.6 per record review) Avoid nephrotoxic agents when possible (6) Chronic diastolic (congestive) heart failure: Plan: Appears euvolemic Continue torsemide (7) SSS (sick sinus syndrome): Plan: S/P pacemaker (8) Asthma, moderate persistent: Plan: No acute exacerbation Continue home inhalers, Singulair (9) RADHA (obstructive sleep apnea): Plan: BiPAP at bedtime (10) Hypothyroidism: Plan: Continue levothyroxine (11) Depression: Plan: Continue sertraline DVT Prophylaxis SCDs Full Code Follows with Dr Calvo for routine care Admission and Anticipated Discharge Date Admission Date: December 06, 2022 Subjective Pt seen in follow up of anemia, on eliquis S/p transfusion of 1 unit of pRBC on admission Currently reports feeling much better however had a LAWRENCE overnight and still has some LAWRENCE but improved. Laying in bed in no acute distress. Seen by GI yesterday, plan for endoscopy tomorrow - on Friday. Patient currently denies any fever chills chest pain shortness of breath, denies abdominal pain Closely monitor H&H Review of Systems Review of Systems: All systems reviewed & are unremarkable except as noted in Subjective Physical Exam Physical Exam: General: elderly frail F in NAD Head: normocephalic, atraumatic Eyes: EOMI, PERRL ENT: normal inspection external ears, nose, mucous membranes moist Neck: supple Lungs: clear, no respiratory distress, no wheezing/rhonchi/rales CV: RRR, + murmur, no pretibial edema Abd: normal BS, soft, non-tender Ext: moves extremities Neuro: A&O x 3, speech fluent, no facial asymmetry, very hard of hearing, moves extremities Skin: warm, dry Results & Data Results & Data Vital Signs (Past 12 Hours) Vital Signs Temp Pulse Pulse Pulse Resp BP BP 12/08/22 14:56 36.5 C 64 18 104/67 12/08/22 14:07 67 12/08/22 12:40 36.4 C L 64 16 120/60 12/08/22 10:00 12/08/22 06:01 60 12/08/22 07:35 36.4 C L 64 16 120/70 12/08/22 03:39 36.4 C L 60 16 103/62 Pulse Ox O2 Del Method 12/08/22 14:56 95 Room Air 12/08/22 14:07 12/08/22 12:40 97 Room Air 12/08/22 10:00 Room Air 12/08/22 06:01 12/08/22 07:35 96 Room Air 12/08/22 03:39 96 Room Air Laboratory Results 12/08/22 12/08/2212/08/23 Range/Units 11:27 07:32 06:31 Hgb 8.4 L (12.0-16.0) g/dl Hct 24.9 L (37.0-47.0) % Sodium (136-145) mmol/L Potassium (3.5-5.1) mmol/L Chloride (98-107) mmol/L Carbon Dioxide (21-32) mmol/L Anion Gap (3-11) BUN (6-23) mg/dl Creatinine (0.6-1.2) mg/dl Est Cr Clr Drug Dosing ml/min Est GFR ( Amer) ml/min Est GFR (Non-Af Amer) ml/min BUN/Creatinine Ratio (10-20) Glucose (70-99(Fasting)) mg/dl POC Glucose 156 H 117 H (70-99) mg/dl Calcium (8.6-10.3) mg/dl Phosphorus (2.5-4.9) mg/dl Magnesium (1.7-2.4) mg/dl 12/08/22 12/08/22 12/07/22 Range/Units 06:31 01:01 20:47 Hgb 8.1 L (12.0-16.0) g/dl Hct 24.4 L (37.0-47.0) % Sodium 139 (136-145) mmol/L Potassium 4.1 (3.5-5.1) mmol/L Chloride 109 H (98-107) mmol/L Carbon Dioxide 23 (21-32) mmol/L Anion Gap 7 (3-11) BUN 46 H (6-23) mg/dl Creatinine 1.41 H (0.6-1.2) mg/dl Est Cr Clr Drug Dosing 30.5 ml/min Est GFR ( Amer) 40.1 ml/min Est GFR (Non-Af Amer) 34.6 ml/min BUN/Creatinine Ratio 32.6 H (10-20) Glucose 113 H (70-99(Fasting)) mg/dl POC Glucose 119 H (70-99) mg/dl Calcium 8.7 (8.6-10.3) mg/dl Phosphorus 4.3 (2.5-4.9) mg/dl Magnesium 2.2 (1.7-2.4) mg/dl 12/07/22 12/07/22 Range/Units 16:22 16:14 Hgb 8.7 L (12.0-16.0) g/dl Hct 26.0 L (37.0-47.0) % Sodium (136-145) mmol/L Potassium (3.5-5.1) mmol/L Chloride (98-107) mmol/L Carbon Dioxide (21-32) mmol/L Anion Gap (3-11) BUN (6-23) mg/dl Creatinine (0.6-1.2) mg/dl Est Cr Clr Drug Dosing ml/min Est GFR ( Amer) ml/min Est GFR (Non-Af Amer) ml/min BUN/Creatinine Ratio (10-20) Glucose (70-99(Fasting)) mg/dl POC Glucose 170 H (70-99) mg/dl Calcium (8.6-10.3) mg/dl Phosphorus (2.5-4.9) mg/dl Magnesium (1.7-2.4) mg/dl Medications Administered Current Inpatient Medications Acetaminophen (Acetaminophen 325 Mg Tab) 650 mg PO Q4H PRN PRN Reason: Pain or Fever Stop: 01/05/23 18:48 Last Admin: 12/07/22 23:16 Dose: 650 mg Allopurinol (Allopurinol 100 Mg Tab) 200 mg PO HS JULIO CESAR Stop: 01/05/23 20:59 Last Admin: 12/07/22 21:04 Dose: 200 mg Alprazolam (Alprazolam 0.25 Mg Tablet) 0.25 mg PO HS JULIO CESAR Stop: 01/05/23 20:59 Last Admin: 12/07/22 21:04 Dose: 0.25 mg Aspirin (Aspirin 81 Mg Ectab) 81 mg PO HS JULIO CESAR Stop: 01/05/23 20:59 Last Admin: 12/07/22 21:07 Dose: 81 mg Atorvastatin Calcium (Atorvastatin 20 Mg Tab) 20 mg PO QA JULIO CESAR Stop: 01/06/23 08:59 Last Admin: 12/08/22 08:39 Dose: 20 mg Cyanocobalamin (Cyanocobalamin (B-12) 100 Mcg Tablet) 100 mcg PO DAILY JULIO CESAR Stop: 01/06/23 08:59 Last Admin: 12/08/22 08:40 Dose: 100 mcg Dextrose (Dextrose 50% 50 Ml Syringe) 25 - 50 ml IV UD PRN; Protocol PRN Reason: Hypoglycemia Protocol Stop: 01/05/23 18:48 Ferrous Sulfate (Ferrous Sulfate 325 Mg Tab) 325 mg PO DAILY JULIO CESAR Stop: 01/06/23 08:59 Last Admin: 12/08/22 08:39 Dose: 325 mg Folic Acid (Folic Acid 1 Mg Tab) 1 mg PO DAILY JULIO CESAR Stop: 01/06/23 08:59 Last Admin: 12/08/22 08:38 Dose: 1 mg Glucagon (Glucagon For Inj 1 Mg Vial) 1 mg SQ UD PRN; Protocol PRN Reason: Hypoglycemia Protocol Stop: 01/05/23 18:48 Glucose (Glucose 10 Tab/Tube) 4 - 8 tab PO UD PRN; Protocol PRN Reason: Hypoglycemia Treatment Stop: 01/05/23 18:48 Glucose (Glucose 40% Gel 15 Gm Tube) 15 - 30 gm PO UD PRN; Protocol PRN Reason: Hypoglycemia Protocol Stop: 01/05/23 18:48 Insulin Aspart (Insulin Aspart Per Unit Charge) 0 units SC ACHS [facility] Stop: 01/06/23 11:29 Last Admin: 12/08/22 12:02 Dose: 3 units Lansoprazole (Lansoprazole 15 Mg Soltab) 15 mg PO QAM JULIO CESAR Stop: 01/06/23 08:59 Last Admin: 12/08/22 08:40 Dose: 15 mg Levalbuterol HCl (Levalbuterol Tartrate 15 Gm Hfa.Aer.Ad) 1 puffs INH Q4R PRN PRN Reason: Shortness Of Breath Stop: 01/05/23 19:31 Levothyroxine Sodium (Levothyroxine Sodium 125 Mcg Tablet) 125 mcg PO DAILYBB JULIO CESAR Stop: 01/06/23 06:29 Last Admin: 12/08/22 05:33 Dose: 125 mcg Miscellaneous (Carbohydrates For Hypoglycemia ) 15 - 30 gm PO UD PRN PRN Reason: Hypoglycemia Protocol Stop: 01/05/23 18:48 Montelukast Sodium (Montelukast Sodium 10 Mg Tablet) 10 mg PO PM [facility] Stop: 01/05/23 20:59 Last Admin: 12/07/22 21:07 Dose: 10 mg Polyethylene Glycol (Polyethylene (Miralax) 17 Gm Pack) 17 gm PO DAILY PRN PRN Reason: Constipation Stop: 01/05/23 18:48 Sertraline HCl (Sertraline Hcl 100 Mg Tablet) 100 mg PO DAILY [facility] Stop: 01/06/23 08:59 Last Admin: 12/08/22 08:39 Dose: 100 mg Sotalol HCl (Sotalol Hcl 80 Mg Tab) 40 mg PO Q12H [facility] Stop: 01/05/23 20:59 Last Admin: 12/08/22 08:40 Dose: 40 mg Torsemide (Torsemide 10 Mg Tab) 10 mg PO QAM [facility] Stop: 01/06/23 08:59 Last Admin: 12/08/22 08:41 Dose: 10 mg Umeclidinium/Vilanterol (Umeclidinium/Vilanterol 62.5/25mcg 7 Puffs/Inhaler) 1 puffs [facility] [place] Stop: 01/06/23 08:59 Last Admin: 12/08/22 08:38 Dose: 1 puffs Vitamin D (Cholecalciferol 1,000 Units 25 Mcg Tab) 4,000 units PO QAM [facility] Stop: 01/06/23 08:59 Last Admin: 12/08/22 08:40 Dose: 4,000 units (5) CKD (chronic kidney disease), stage III Chronic kidney disease stage 3 subtype: stage 3b (GFR 30-44) Qualified Code(s): N18.32 - Chronic kidney disease, stage 3b
[2022-12-08] MEDS: allopurinoL 100 MG TAB PO SCH (20:08)
[2022-12-08] MEDS: ASPIRIN 81 MG ECTAB PO SCH (20:09)
[2022-12-08] MEDS: MONTELUKAST SODIUM 10 MG TABLET PO SCH (20:10)
[2022-12-08] MEDS: ALPRAZolam 0.25 MG TABLET PO SCH (20:13)
[2022-12-09] MEDS ORDERED: Nursing to Pharmacy Communication SCH ×2 (03:15→10:15)
[2022-12-09] MEDS: LEVOTHYROXINE SODIUM 125 MCG TABLET PO SCH (05:26)
[2022-12-09] MEDS ORDERED: INSULIN ASPART PER UNIT CHARGE SC SCH ×2 (06:00→11:30)
[2022-12-09 06:58] LABS: Hematocrit (blood only) 26.2 % (37.0-47.0); Hemoglobin 8.6 g/dl (12.0-16.0)
[2022-12-09] MEDS ORDERED: LIDOCAINE 2% MPF LOCAL 5 ML VIAL ONE (08:21)
[2022-12-09] MEDS ORDERED: PROPOFOL IV EMULSION 10 MG/ML 20 ML VIAL IV ONE (08:21)
--- NOTE | 2022-12-09 08:35 | Gastroenterology Progress Note ---
Date of Service December 09, 2022 Assessment & Plan (1) Anemia: Plan: 82 yo female with chronic iron def anemia(on oral and IV iron)as well as AF, PHTN, CHF, and TIA on chronic anticoagulation (siwtched in October) now with 2 gm drop in hgb without overt s/s of bleeding. Will plan for a repeat EGD/enteroscopy today If that is unrevealing, will consider a repeat colonoscopy. This can also be done as an outpatient. Plan as detailed above Admission and Anticipated Discharge Date Admission Date: December 06, 2022 Subjective No signs of bleeding, Hb stable Physical Exam Constitutional: WD/WN, vitals as above Cardiovascular: RRR, no murmur, no edema Gastrointestinal (Abdomen): normal bowel sounds, soft, nontender, no hepatosplenomegaly Results & Data Vital Signs (Past 12 Hours) Vital Signs Temp Pulse Pulse Resp BP BP Pulse Ox 12/09/22 08:27 36.3 C L 107 H 20 130/83 95 12/09/22 07:35 36.4 C L 62 20 120/67 93 12/09/22 07:33 12/09/22 06:05 60 12/09/22 03:40 126/73 12/09/22 03:03 36.4 C L 61 18 105/46 L 93 12/09/22 01:00 96 12/09/22 00:57 109/63 12/08/22 23:19 36.3 C L 60 18 107/59 L 91 O2 Del Method 12/09/22 08:27 Room Air 12/09/22 07:35 Room Air 12/09/22 07:33 Room Air 12/09/22 06:05 12/09/22 03:40 12/09/22 03:03 Room Air 12/09/22 01:00 Room Air 12/09/22 00:57 12/08/22 23:19 Room Air
--- NOTE | 2022-12-09 08:43 | Anesthesiology Consultation ---
Date of Service December 09, 2022 Assessment & Plan Chart Review Chart Review: Acceptable Risk for Surgery Consults Requested none ASA ASA3 Proposed Anesthesia Anesthesia Type: MAC Risk / Benefits Reviewed With: PT / POA / Parent / Guardian and Accepts Plan History Surgery Operation Date: 12/09/22 17:30 Proposed Procedures p Esophagogastroduodenoscopy Dr Barreto - Steve Barreto MD Height/Weight Height: 5 ft 4 in Weight: 73.7 kg Allergies Allergy/AdvReac Type Severity Reaction Status Date / Time Sulfa (Sulfonamide Allergy Severe Severe Verified 12/06/22 16:15 Antibiotics) rxn: rash and hives celecoxib Allergy Intermediate Rash/Hives/ Verified 12/06/22 16:15 Itching. cephalexin Allergy Intermediate Rash/Hives/ Verified 12/06/22 16:15 Itching. furosemide Allergy Intermediate Rash/Hives/ Verified 12/06/22 16:15 Itching. gabapentin Allergy Intermediate Rash/Hives/ Verified 12/06/22 16:15 Itching. pregabalin Allergy Intermediate Rash/Hives/ Verified 12/06/22 16:15 Itching. meclizine Allergy Unknown Unknown Verified 12/06/22 16:15 methylprednisolone Allergy Unknown Rash/Hives/ Verified 12/06/22 16:15 Itching. Penicillins Allergy Unknown Unknown. Verified 12/06/22 16:15 prednisone Allergy Unknown Rash/Hives/ Verified 12/06/22 16:15 Itching. vancomycin Allergy Unknown Jodi Verified 12/06/22 16:15 syn. . nickel Allergy Unknown Verified 12/06/22 16:15 dexamethasone AdvReac Intermediate Steroid Verified 12/06/22 16:15 psychosis. Medications Home Medications Medication Instructions Recorded Confirmed Last Taken alprazolam 0.5 mg tablet 0.25 mg PO HS 04/08/19 12/06/22 Unknown lansoprazole 15 mg capsule,delayed 15 mg PO QAM 04/08/19 12/06/22 07/29/21 release montelukast 10 mg tablet 10 mg PO PM 04/08/19 12/06/22 03/04/22 ferrous sulfate 325 mg (65 mg 325 mg PO DAILY 06/03/20 12/06/22 12/06/22 10:00 iron) tablet allopurinol 100 mg tablet 200 mg PO HS 11/26/21 12/06/22 03/04/22 atorvastatin 20 mg tablet 20 mg PO QAM 11/26/21 12/06/22 12/06/22 10:00 cholecalciferol (vitamin D3) 50 100 mcg PO QAM 11/26/21 12/06/22 12/06/22 10:00 mcg (2,000 unit) capsule (Vitamin D3) aspirin 81 mg tablet,delayed 81 mg PO HS 01/04/22 12/06/22 03/04/22 release levalbuterol tartrate 45 1 puff inhalation Q4 PRN Shortness 08/07/22 12/06/22 Unknown mcg/actuation aerosol inhaler Of Breath (Xopenex HFA) sertraline 100 mg tablet 100 mg PO DAILY 08/07/22 12/06/22 12/06/22 10:00 sotalol 80 mg tablet 40 mg PO AMPM 08/07/22 12/06/22 12/06/22 10:00 cyanocobalamin (vitamin B-12) 100 100 mcg PO DAILY 11/07/22 12/06/22 12/06/22 10:00 mcg tablet (Vitamin B-12) folic acid 1 mg tablet 1 mg PO DAILY 11/07/22 12/06/22 12/06/22 10:00 tiotropium 2.5 mcg-olodaterol 2.5 2 puff inhalation QAM 11/07/22 12/06/22 12/06/22 10:00 mcg/actuation mist for inhalation (Stiolto Respimat) torsemide 10 mg tablet 10 mg PO QAM 11/07/22 12/06/22 12/06/22 10:00 apixaban 2.5 mg tablet (Eliquis) 2.5 mg PO BID #60 tabs 11/13/22 12/06/22 12/06/22 10:00 levothyroxine 125 mcg capsule 125 mcg PO DAILY #30 caps 11/13/22 12/06/22 12/06/22 09:00 empagliflozin 10 mg tablet 10 mg PO DAILY 12/06/22 12/06/22 12/06/22 10:00 (Jardiance) ipratropium bromide 21 mcg (0.03 2 spray intranasal DAILY 12/06/22 12/06/22 Unknown %) nasal spray Active Medications Generic Name Dose Route Start Last Admin Trade Name Freq PRN Reason Stop Dose Admin Acetaminophen 650 mg 12/06/22 18:49 12/07/22 23:16 Acetaminophen 325 Mg Tab PO 01/05/23 18:48 650 mg Q4H PRN Administration Pain or Fever Allopurinol 200 mg 12/06/22 21:00 12/08/22 20:08 Allopurinol 100 Mg Tab PO 01/05/23 20:59 200 mg HS JULIO CESAR Administration Alprazolam 0.25 mg 12/06/22 21:00 12/08/22 20:13 Alprazolam 0.25 Mg Tablet PO 01/05/23 20:59 0.25 mg HS JULIO CESAR Administration Aspirin 81 mg 12/06/22 21:00 12/08/22 20:09 Aspirin 81 Mg Ectab PO 01/05/23 20:59 81 mg HS JULIO CESAR Administration Atorvastatin Calcium 20 mg 12/07/22 09:00 12/08/22 08:39 Atorvastatin 20 Mg Tab PO 01/06/23 08:59 20 mg QAM JULIO CESAR Administration Cyanocobalamin 100 mcg 12/07/22 09:00 12/08/22 08:40 Cyanocobalamin (B-12) 100 Mcg Tablet PO 01/06/23 08:59 100 mcg DAILY JULIO CESAR Administration Ferrous Sulfate 325 mg 12/07/22 09:00 12/08/22 08:39 Ferrous Sulfate 325 Mg Tab PO 01/06/23 08:59 325 mg DAILY JULIO CESAR Administration Folic Acid 1 mg 12/07/22 09:00 12/08/22 08:38 Folic Acid 1 Mg Tab PO 01/06/23 08:59 1 mg DAILY JULIO CESAR Administration Insulin Aspart 0 units 12/09/22 06:00 12/09/22 05:26 Insulin Aspart Per Unit Charge SC 01/08/23 05:59 Not Given Q6 JULIO CESAR Lansoprazole 15 mg 12/07/22 09:00 12/08/22 08:40 Lansoprazole 15 Mg Soltab PO 01/06/23 08:59 15 mg QAM JULIO CESAR Administration Levothyroxine Sodium 125 mcg 12/07/22 06:30 12/09/22 05:26 Levothyroxine Sodium 125 Mcg Tablet PO 01/06/23 06:29 125 mcg DAILYBB JULIO CESAR Administration Montelukast Sodium 10 mg 12/06/22 21:00 12/08/22 20:10 Montelukast Sodium 10 Mg Tablet PO 01/05/23 20:59 10 mg PM JULIO CESAR Administration Sertraline HCl 100 mg 12/07/22 09:00 12/08/22 08:39 Sertraline Hcl 100 Mg Tablet PO 01/06/23 08:59 100 mg DAILY JULIO CESAR Administration Sotalol HCl 40 mg 12/06/22 21:00 12/08/22 08:40 Sotalol Hcl 80 Mg Tab PO 01/05/23 20:59 40 mg Q12H JULIO CESAR Administration Torsemide 10 mg 12/07/22 09:00 12/08/22 08:41 Torsemide 10 Mg Tab PO 01/06/23 08:59 10 mg QAM JULIO CESAR Administration Umeclidinium/Vilanterol 1 puffs 12/07/22 09:00 12/08/22 08:38 Umeclidinium/Vilanterol 62.5/25mcg 7 Puffs/Inhaler INH 01/06/23 08:59 1 puffs QAM JULIO CESAR Administration Vitamin D 4,000 units 12/07/22 09:00 12/08/22 08:40 Cholecalciferol 1,000 Units 25 Mcg Tab PO 01/06/23 08:59 4,000 units QAM JULIO CESAR Administration NPO Date Last Intake of Fluids: 12/08/22 Time Last Intake of Fluids: 20:00 Date Last Intake of Solids: 12/08/22 Time Last Intake of Solids: 17:00 Past Medical History Medical History TIFFANY (acute kidney injury) Asthma, moderate persistent Atrial fibrillation and flutter Atrial fibrillation with RVR Atrial flutter Carotid artery aneurysm Chest pain at rest Cholecystitis Cholelithiasis Chronic diastolic (congestive) heart failure CKD (chronic kidney disease), stage III Dehydration Depression DM type 2 (diabetes mellitus, type 2) Elevated brain natriuretic peptide (BNP) level Encounter for pre-operative examination History of tobacco abuse HTN (hypertension) Hypotension Hypothyroidism Leukocytosis Meniere disease Nausea Near syncope Near syncope RADHA (obstructive sleep apnea) Osteoarthritis of right knee Pneumonia Prolonged QT interval Pulmonary emphysema SSS (sick sinus syndrome) TIA (transient ischemic attack) Exercise / Class Metabolic Activity III < 4 Walking/Shop/Light housework Past Family History Family History Father Diabetes Past Surgical History Surgical History H/O sinus surgery History of cholecystectomy History of hysterectomy History of laminectomy History of repair of left rotator cuff Hx of neck surgery Social History Smoking Status: Never smoker tobacco type: cigarettes Smoking cigarettes per day: 30 Hx Alcohol Use: No Hx Substance Use: No substance use type: does not use Review of Systems ROS Unobtainable: All systems reviewed & are unremarkable except as noted in HPI & below Physical Exam Vital Signs Last Vital Signs Temp 36.3 C L 12/09/22 08:27 Pulse 107 H 12/09/22 08:27 Resp 20 12/09/22 08:27 BP 130/83 12/09/22 08:27 Pulse Ox 95 12/09/22 08:27 O2 Del Method Room Air 12/09/22 08:27 ENMT Thyromental Distance: > or= 3.5 Finger Breadths Mallampati Class: II Respiratory normal respiratory effort Auscultation: lungs clear to auscultation bilaterally Cardiovascular Rate/Rhythm: regular rate and regular rhythm Neurologic moves all extremities Psychiatric Orientation: alert and oriented x 3 Testing Laboratory Results 12/09/22 05:30 PT 11.9 Seconds (9.0-12.0) 12/06/22 14:31 INR 1.1 (0.9-1.1) 12/06/22 14:31 APTT 32.0 Seconds (21.0-31.0) H 12/06/22 14:31 Blood Type O Positive 12/06/22 14:31 Antibody Screen NEGATIVE 12/06/22 14:31 12/09/22 05:25 POC Glucose 116 H
--- NOTE | 2022-12-09 09:19 | GI REPORT ---
Patient Name: Inga Barakat Procedure Date: 12/09/2022 8:41 AM Date of : 1940 Admit Type: Inpatient Age: 82 Gender: Female Attending MD: Steve Barreto MD, Procedure: Upper GI endoscopy Providers: Steve Barreto MD Referring MD: John Natarajan Md Indications: Iron deficiency anemia secondary to chronic blood loss, Iron deficiency anemia Medicines: Propofol per Anesthesia Complications: No immediate complications. Estimated blood loss: None. Estimated Blood Loss: Estimated blood loss: none. Procedure: Pre-Anesthesia Assessment: - Pre-Anesthesia Assessment: - Prior to the procedure, a History and Physical was performed, and patient medications, allergies and sensitivities were reviewed. The patient's tolerance of previous anesthesia was reviewed. Please see [employer] for complete details. - The risks and benefits of the procedure and the sedation options and risks were discussed with the patient. All questions were answered and informed consent was obtained. - Patient identification and proposed procedure were verified prior to the procedure by the physician and the nurse. The procedure was verified in the pre-procedure area in the procedure room. After obtaining informed consent, the endoscope was passed carefully and meticuously under direct vision and only advanced when the lumen was clearly identified, C02 insuflation was utilized throughout the entirity of the procedure. Throughout the procedure, the patient's blood pressure, pulse, and oxygen saturations were monitored continuously. After obtaining informed consent, the endoscope was passed under direct vision. Throughout the procedure, the patient's blood pressure, pulse, and oxygen saturations were monitored continuously. The Endoscope was introduced through the mouth, and advanced to the second part of duodenum. The upper GI endoscopy was accomplished without difficulty. The patient tolerated the procedure well. Findings: The examined esophagus was normal. Localized moderate inflammation characterized by erythema and friability was found in the gastric antrum. Biopsies were taken with a cold forceps for histology. Biopsies were taken with a cold forceps for Helicobacter pylori testing. The examined duodenum was normal. Impression: - Normal esophagus. - Gastritis. Biopsied. - Normal examined duodenum. Recommendation: - Await pathology results. - Return patient to [facility] for possible discharge same day. - BID PPI indefinately - Follow Hb - Would arrange outpatient Colonoscopy as previous one was fair prep. Consider other etiologies of anemia if Colonoscopy normal given prior normal VCE Steve Barreto MD 12/09/2022 9:18:28 AM This report has been signed electronically. Note Initiated On: 12/09/2022 8:41 AM Number of Addenda: 0 I attest to the content of the Intraoperative Record and orders documented therein, exceptions below {[id number]}
[2022-12-09] MEDS ORDERED: ePHEDrine sulfate 50 MG/ML SYR ONE (09:20)
--- NOTE | 2022-12-09 09:56 | Hospitalist Progress Note ---
Date of Service December 09, 2022 Assessment & Plan (1) Anemia: Plan: Acute on chronic anemia Symptomatic anemia Patient is 82-year-old female with PMH DM II, paroxysmal atrial fibrillation, TIA, pulmonary hypertension, secondary hyperparathyroidism, PVD, chronic diastolic heart failure, hypothyroidism, Mnire's disease, RADHA, iron deficiency anemia, CKD III, SSS S/P pacemaker presented to ER with c/o abnormal labs- anemia. Hgb: 7.3 on outpatient labs today. Generalized weakness, SOB, lightheaded Last IV iron on 11/01/22 Colonoscopy 03/11/2022: Few diverticula in sigmoid colon EGD: 03/11/2022: Multiple diminutive sessile fundic gland polyps with no stigmata of recent bleeding found Video capsule: 04/08/2022: Gastric erosions noted, no small bowel abnormality noted In ER Hgb: 7.5 (Hgb 10.6 on 11/18/22 and 9.8 on 10/21/22). Vitals stable. Started on Eliquis 10/2022 S/p transfusion of 1 unit PRBC Repeat Hgb post transfusion 8.7, then next AM 8.0 Current Hgb 8.6 (12/09/2022) Hold Eliquis for now Cont. to closely monitor H&H GI consulted - pt is now s/p EGD (12/09/2022) Findings: The examined esophagus was normal. Localized moderate inflammation characterized by erythema and friability was found in the gastric antrum. Biopsies were taken with a cold forceps for histology. Biopsies were taken with a cold forceps for Helicobacter pylori testing. The examined duodenum was normal. Impression: - Normal esophagus. - Gastritis. Biopsied. - Normal examined duodenum. Recommendation: - Await pathology results. - Return patient to [facility] for possible discharge same day. - BID PPI indefinately - Follow Hb - Would arrange outpatient Colonoscopy as previous one was fair prep. Consider other etiologies of anemia if Colonoscopy normal given prior normal VCE Pantoprazole 40 mg BID Rx sent to pt's pharmacy. Follow up w/ PCP arranged. GI to arrange outpt colonoscopy. Biopsy pending results. Eliquis on hold. Pt understands and in agreement w/ the plan. (2) Paroxysmal atrial fibrillation: Plan: Hold Eliquis secondary to acute on chronic anemia Continue sotalol Cardiology consulted, as in need of recommendations on future anticoagulation considerations, risk versus benefit Per cardiology - -Agree with holding Eliquis. Aspirin 81 mg daily continued. Future considerations include proceeding without aspirin but and resuming Eliquis. -Per past pacemaker interrogations, her atrial fibrillation burden is low, but did have a TIA event a month ago. Future considerations include consultation with the structural heart disease[place] [facility] [place] percutaneous left atrial appendage occlusion (Watchman device) however proceeding with this procedure requires the patient to be on anticoagulation for a month prior to the procedure, a month after work, and then 6 months of aspirin and clopidogrel, which often times is not feasible in a patient who is having ongoing bleeding issues. -Continue rhythm control strategy with sotalol 40 mg twice daily. Patient is euvolemic at present. Continue prior to hospital treatment torsemide 10 mg daily. (3) TIA (transient ischemic attack): Plan: TIA 10/2022 and was started on Eliquis Unfortunately patient with acute on chronic anemia as above while on Eliquis Continue atorvastatin, aspirin May need neurology consult (4) DM type 2 (diabetes mellitus, type 2): Plan: A1c: 6.2 on 08/27/2022 Hold home meds NovoLog sliding scale. Monitor BG to further adjust (5) CKD (chronic kidney disease), stage III: Plan: Cr: 1.56 (baseline 1.3-1.6 per record review) Avoid nephrotoxic agents when possible (6) Chronic diastolic (congestive) heart failure: Plan: Appears euvolemic Continue torsemide (7) SSS (sick sinus syndrome): Plan: S/P pacemaker (8) Asthma, moderate persistent: Plan: No acute exacerbation Continue home inhalers, Singulair (9) RADHA (obstructive sleep apnea): Plan: BiPAP at bedtime (10) Hypothyroidism: Plan: Continue levothyroxine (11) Depression: Plan: Continue sertraline DVT Prophylaxis SCDs Full Code Follows with Dr Calvo for routine care Admission and Anticipated Discharge Date Admission Date: December 06, 2022 Subjective Pt seen in follow up of anemia, on eliquis S/p transfusion of 1 unit of pRBC on admission Now s/p EGD today H&H has been stable Currently reports feeling much better, laying in bed in no acute distress. Patient currently denies any fever chills chest pain shortness of breath, denies abdominal pain Review of Systems Review of Systems: All systems reviewed & are unremarkable except as noted in Subjective Physical Exam Physical Exam: General: elderly frail F in NAD Head: normocephalic, atraumatic Eyes: EOMI, PERRL ENT: normal inspection external ears, nose, mucous membranes moist Neck: supple Lungs: clear, no respiratory distress, no wheezing/rhonchi/rales CV: RRR, + murmur, no pretibial edema Abd: normal BS, soft, non-tender Ext: moves extremities Neuro: A&O x 3, speech fluent, no facial asymmetry, very hard of hearing, moves extremities Skin: warm, dry Results & Data Results & Data Vital Signs (Past 12 Hours) Vital Signs Temp Pulse Pulse Resp BP BP Pulse Ox 12/09/22 09:47 60 18 113/62 93 12/09/22 09:30 59 L 16 109/52 L 93 12/09/22 09:15 64 14 102/48 L 93 12/09/22 08:27 36.3 C L 107 H 20 130/83 95 12/09/22 07:35 36.4 C L 62 20 120/67 93 12/09/22 07:33 12/09/22 06:05 60 12/09/22 03:40 126/73 12/09/22 03:03 36.4 C L 61 18 105/46 L 93 12/09/22 01:00 96 12/09/22 00:57 109/63 12/08/22 23:19 36.3 C L 60 18 107/59 L 91 O2 Del Method 12/09/22 09:47 Room Air 12/09/22 09:30 Room Air 12/09/22 09:15 Room Air 12/09/22 08:27 Room Air 12/09/22 07:35 Room Air 12/09/22 07:33 Room Air 12/09/22 06:05 12/09/22 03:40 12/09/22 03:03 Room Air 12/09/22 01:00 Room Air 12/09/22 00:57 12/08/22 23:19 Room Air Laboratory Results 12/09/22 12/09/22 12/09/22 Range/Units 05:30 05:30 05:25 Hgb 8.6 L (12.0-16.0) g/dl Hct 26.2 L (37.0-47.0) % Sodium 138 (136-145) mmol/L Potassium 4.0 (3.5-5.1) mmol/L Chloride 109 H (98-107) mmol/L Carbon Dioxide 21 (21-32) mmol/L Anion Gap 8 (3-11) BUN 42 H (6-23) mg/dl Creatinine 1.34 H (0.6-1.2) mg/dl Est Cr Clr Drug Dosing 31.8 ml/min Est GFR ( Amer) 42.7 ml/min Est GFR (Non-Af Amer) 36.8 ml/min BUN/Creatinine Ratio 31.3 H (10-20) Glucose 108 H (70-99(Fasting)) mg/dl POC Glucose 116 H (70-99) mg/dl Calcium 8.9 (8.6-10.3) mg/dl Phosphorus 4.3 (2.5-4.9) mg/dl Magnesium 2.1 (1.7-2.4) mg/dl 12/08/22 12/08/22 12/08/22 Range/Units 20:09 16:28 11:27 Hgb (12.0-16.0) g/dl Hct (37.0-47.0) % Sodium (136-145) mmol/L Potassium (3.5-5.1) mmol/L Chloride (98-107) mmol/L Carbon Dioxide (21-32) mmol/L Anion Gap (3-11) BUN (6-23) mg/dl Creatinine (0.6-1.2) mg/dl Est Cr Clr Drug Dosing ml/min Est GFR ( Amer) ml/min Est GFR (Non-Af Amer) ml/min BUN/Creatinine Ratio (10-20) Glucose (70-99(Fasting)) mg/dl POC Glucose 113 H 129 H 156 H (70-99) mg/dl Calcium (8.6-10.3) mg/dl Phosphorus (2.5-4.9) mg/dl Magnesium (1.7-2.4) mg/dl Medications Administered Current Inpatient Medications Acetaminophen (Acetaminophen 325 Mg Tab) 650 mg PO Q4H PRN PRN Reason: Pain or Fever Stop: 01/05/23 18:48 Last Admin: 12/07/22 23:16 Dose: 650 mg Allopurinol (Allopurinol 100 Mg Tab) 200 mg PO HS JULIO CESAR Stop: 01/05/23 20:59 Last Admin: 12/08/22 20:08 Dose: 200 mg Alprazolam (Alprazolam 0.25 Mg Tablet) 0.25 mg PO HS JULIO CESAR Stop: 01/05/23 20:59 Last Admin: 12/08/22 20:13 Dose: 0.25 mg Aspirin (Aspirin 81 Mg Ectab) 81 mg PO HS JULIO CESAR Stop: 01/05/23 20:59 Last Admin: 12/08/22 20:09 Dose: 81 mg Atorvastatin Calcium (Atorvastatin 20 Mg Tab) 20 mg PO QAM JULIO CESAR Stop: 01/06/23 08:59 Last Admin: 12/08/22 08:39 Dose: 20 mg Cyanocobalamin (Cyanocobalamin (B-12) 100 Mcg Tablet) 100 mcg PO DAILY JULIO CESAR Stop: 01/06/23 08:59 Last Admin: 12/08/22 08:40 Dose: 100 mcg Dextrose (Dextrose 50% 50 Ml Syringe) 25 - 50 ml IV UD PRN; Protocol PRN Reason: Hypoglycemia Protocol Stop: 01/05/23 18:48 Ferrous Sulfate (Ferrous Sulfate 325 Mg Tab) 325 mg PO DAILY JULIO CESAR Stop: 01/06/23 08:59 Last Admin: 12/08/22 08:39 Dose: 325 mg Folic Acid (Folic Acid 1 Mg Tab) 1 mg PO DAILY JULIO CESAR Stop: 01/06/23 08:59 Last Admin: 12/08/22 08:38 Dose: 1 mg Glucagon (Glucagon For Inj 1 Mg Vial) 1 mg SQ UD PRN; Protocol PRN Reason: Hypoglycemia Protocol Stop: 01/05/23 18:48 Glucose (Glucose 10 Tab/Tube) 4 - 8 tab PO UD PRN; Protocol PRN Reason: Hypoglycemia Treatment Stop: 01/05/23 18:48 Glucose (Glucose 40% Gel 15 Gm Tube) 15 - 30 gm PO UD PRN; Protocol PRN Reason: Hypoglycemia Protocol Stop: 01/05/23 18:48 Insulin Aspart (Insulin Aspart Per Unit Charge) 0 units SC Q6 JLUIO CESAR Stop: 01/08/23 05:59 Last Admin: 12/09/22 05:26 Dose: Not Given Lansoprazole (Lansoprazole 15 Mg Soltab) 15 mg PO QAM JULIO CESAR Stop: 01/06/23 08:59 Last Admin: 12/08/22 08:40 Dose: 15 mg Levalbuterol HCl (Levalbuterol Tartrate 15 Gm Hfa.Aer.Ad) 1 puffs INH Q4R PRN PRN Reason: Shortness Of Breath Stop: 01/05/23 19:31 Levothyroxine Sodium (Levothyroxine Sodium 125 Mcg Tablet) 125 mcg PO DAILYBB JULIO CESAR Stop: 01/06/23 06:29 Last Admin: 12/09/22 05:26 Dose: 125 mcg Miscellaneous (Carbohydrates For Hypoglycemia ) 15 - 30 gm PO UD PRN PRN Reason: Hypoglycemia Protocol Stop: 01/05/23 18:48 Montelukast Sodium (Montelukast Sodium 10 Mg Tablet) 10 mg PO PM JULIO CESAR Stop: 01/05/23 20:59 Last Admin: 12/08/22 20:10 Dose: 10 mg Polyethylene Glycol (Polyethylene (Miralax) 17 Gm Pack) 17 gm PO DAILY PRN PRN Reason: Constipation Stop: 01/05/23 18:48 Sertraline HCl (Sertraline Hcl 100 Mg Tablet) 100 mg PO DAILY JULIO CESAR Stop: 01/06/23 08:59 Last Admin: 12/08/22 08:39 Dose: 100 mg Sotalol HCl (Sotalol Hcl 80 Mg Tab) 40 mg PO Q12H JULIO CESAR Stop: 01/05/23 20:59 Last Admin: 12/08/22 08:40 Dose: 40 mg Torsemide (Torsemide 10 Mg Tab) 10 mg PO QAM JULIO CESAR Stop: 01/06/23 08:59 Last Admin: 12/08/22 08:41 Dose: 10 mg Umeclidinium/Vilanterol (Umeclidinium/Vilanterol 62.5/25mcg 7 Puffs/Inhaler) 1 puffs INH QAM JULIO CESAR Stop: 01/06/23 08:59 Last Admin: 12/08/22 08:38 Dose: 1 puffs Vitamin D (Cholecalciferol 1,000 Units 25 Mcg Tab) 4,000 units PO QAM JULIO CESAR Stop: 01/06/23 08:59 Last Admin: 12/08/22 08:40 Dose: 4,000 units (5) CKD (chronic kidney disease), stage III Chronic kidney disease stage 3 subtype: stage 3b (GFR 30-44) Qualified Code(s): N18.32 - Chronic kidney disease, stage 3b
[2022-12-09 09:58] LABS: BUN Creatinine Ratio 31.3 (10-20); Calcium 8.9 mg/dl (8.6-10.3); Creatinine Clr Calc Pharmacy 31.8 ml/min; Est GFR (African American) 42.7 ml/min; Est GFR (Non-African American) 36.8 ml/min; Magnesium 2.1 mg/dl (1.7-2.4); Phosphorus 4.3 mg/dl (2.5-4.9)
[2022-12-09] MEDS: UMECLIDINIUM/VILANTEROL 62.5/25MCG 7 PUFFS/INHALER INH SCH (10:06)
[2022-12-09] MEDS: CYANOCOBALAMIN (B-12) 100 MCG TABLET PO SCH (10:07)
[2022-12-09] MEDS: FOLIC ACID 1 MG TAB PO SCH (10:07)
[2022-12-09] MEDS: FERROUS SULFATE 325 MG TAB PO SCH (10:07)
[2022-12-09] MEDS: LANSOPRAZOLE 15 MG SOLTAB PO SCH (10:08)
[2022-12-09] MEDS: CHOLECALCIFEROL 1,000 UNITS 25 MCG TAB PO SCH (10:08)
[2022-12-09] MEDS: TORSEMIDE 10 MG TAB PO SCH (10:09)
[2022-12-09] MEDS: SERTRALINE HCL 100 MG TABLET PO SCH (10:09)
[2022-12-09] MEDS: SOTALOL HCL 80 MG TAB PO SCH (10:10)
[2022-12-09] MEDS: ATORVASTATIN 20 MG TAB PO SCH (10:11)
--- NOTE | 2022-12-09 10:12 | Anesthesiology Progress Note ---
Date of Service December 09, 2022 Anesthesia Post Procedure Vital Signs Vital Signs: Temp Pulse Pulse Pulse Resp BP BP 12/09/22 09:47 60 18 113/62 12/09/22 09:30 59 L 16 109/52 L 12/09/22 09:15 64 14 102/48 L 12/09/22 08:27 36.3 C L 107 H 20 130/83 12/09/22 07:35 36.4 C L 62 20 120/67 12/09/22 07:33 12/09/22 06:05 60 12/09/22 03:40 126/73 12/09/22 03:03 36.4 C L 61 18 105/46 L 12/09/22 01:00 12/09/22 00:57 109/63 12/08/22 23:19 36.3 C L 60 18 107/59 L 12/08/22 19:13 36.5 C 68 16 113/65 12/08/22 19:21 12/08/22 14:56 36.5 C 64 18 104/67 12/08/22 14:07 67 12/08/22 12:40 36.4 C L 64 16 120/60 Pulse Ox O2 Del Method 12/09/22 09:47 93 Room Air 12/09/22 09:30 93 Room Air 12/09/22 09:15 93 Room Air 12/09/22 08:27 95 Room Air 12/09/22 07:35 93 Room Air 12/09/22 07:33 Room Air 12/09/22 06:05 12/09/22 03:40 12/09/22 03:03 93 Room Air 12/09/22 01:00 96 Room Air 12/09/22 00:57 12/08/22 23:19 91 Room Air 12/08/22 19:13 95 Room Air 12/08/22 19:21 Room Air 12/08/22 14:56 95 Room Air 12/08/22 14:07 12/08/22 12:40 97 Room Air Pain Intensity Right Knee: Pain Intensity: 3 Transfer of Care Handoff Completed per policy Notes Mental Status: alert / awake / arousable and participated in evaluation Nausea / Vomiting: adequately controlled Pain: adequately controlled Airway Patency, RR, SpO2: stable & adequate BP & HR: stable & adequate Hydration State: stable & adequate Anesthetic Complications: no major complications apparent and Pt Satisfied with anesthetic care
--- NOTE | 2022-12-09 11:15 | Discharge Summary ---
Date of Service December 09, 2022 Admission HPI Per Admitting Provider Patient is 82-year-old female with PMH DM II, paroxysmal atrial fibrillation, TIA, pulmonary hypertension, secondary hyperparathyroidism, PVD, chronic diastolic heart failure, hypothyroidism, Mnire's disease, RADHA, iron deficiency anemia, CKD III, SSS S/P pacemaker presented to ER with c/o abnormal labs- anemia. Hgb: 7.3 on outpatient labs today. States has been more fatigued and SOB past 1-2 weeks. Past two days with mild lightheadedness and generalized weakness. Patient with history iron deficiency. On chronic iron so stools are always dark. Last IV iron on 11/01/22. Recent hospitalization 10/[address] [facility] for TIA and Eliquis was restarted. Patient states last year was on Eliquis for a- fib and had worsening anemia and Eliquis was discontinued after unremarkable GI workup. Denies fever/chills, diaphoresis, N/V/D/C, [place], syncope, vision changes, neck pain, CP, orthopnea, palpitations, cough, sore throat, choking, otalgia, rhinorrhea, abdominal pain, paresthesias, weakness, extremity weakness, extremity edema, rashes, urinary symptoms, hematuria, hematochezia. Outpatient records reviewed: Colonoscopy 03/11/2022: Few diverticula in sigmoid colon EGD: 03/11/2022: Multiple diminutive sessile fundic gland polyps with no stigmata of recent bleeding found Video capsule: 04/08/2022: Gastric erosions noted, no small bowel abnormality noted Admission Exam Per Admitting Provider General: no distress, WDWN Head: normocephalic, atraumatic Eyes: conjunctiva non-injected, anicteric ENT: normal inspection external ears, nose, mucous membranes moist Neck: supple, trachea midline Lungs: clear, no respiratory distress, no wheezing/rhonchi/rales CV: RRR, + murmur, no pretibial edema Abd: normal BS, soft, non-tender Ext: no cyanosis, no calf tenderness Neuro: A&O x 3, no focal deficits noted, normal affect Skin: pale, warm, dry Principal Diagnosis Acute on chronic anemia Gastritis Anticoagulation use Discharge Exam General: elderly frail F in NAD Head: normocephalic, atraumatic Eyes: EOMI, PERRL ENT: normal inspection external ears, nose, mucous membranes moist Neck: supple Lungs: clear, no respiratory distress, no wheezing/rhonchi/rales CV: RRR, + murmur, no pretibial edema Abd: normal BS, soft, non-tender Ext: moves extremities Neuro: A&O x 3, speech fluent, no facial asymmetry, very hard of hearing, moves extremities Skin: warm, dry Discharge Data Allergies Allergy/AdvReac Type Severity Reaction Status Date / Time Sulfa (Sulfonamide Allergy Severe Severe Verified 12/06/22 16:15 Antibiotics) rxn: rash and hives celecoxib Allergy Intermediate Rash/Hives/ Verified 12/06/22 16:15 Itching. cephalexin Allergy Intermediate Rash/Hives/ Verified 12/06/22 16:15 Itching. furosemide Allergy Intermediate Rash/Hives/ Verified 12/06/22 16:15 Itching. gabapentin Allergy Intermediate Rash/Hives/ Verified 12/06/22 16:15 Itching. pregabalin Allergy Intermediate Rash/Hives/ Verified 12/06/22 16:15 Itching. meclizine Allergy Unknown Unknown Verified 12/06/22 16:15 methylprednisolone Allergy Unknown Rash/Hives/ Verified 12/06/22 16:15 Itching. Penicillins Allergy Unknown Unknown. Verified 12/06/22 16:15 prednisone Allergy Unknown Rash/Hives/ Verified 12/06/22 16:15 Itching. vancomycin Allergy Unknown Jodi Verified 12/06/22 16:15 syn. . nickel Allergy Unknown Verified 12/06/22 16:15 dexamethasone AdvReac Intermediate Steroid Verified 12/06/22 16:15 psychosis. Consultations 12/06/22 15:34 ED Decision to Admit Stat 12/07/22 08:00 Consult Cardiology Routine Consult Gastroenterology Routine Procedures Performed Operation Date: 12/09/22 17:30 Actual Procedures p EGD Biopsy Cytology - Steve Barreto MD Procedure: Pre-Anesthesia Assessment: - Pre-Anesthesia Assessment: - Prior to the procedure, a History and Physical was performed, and patient medications, allergies and sensitivities were reviewed. The patient's tolerance of previous anesthesia was reviewed. Please see [employer] for complete details. - The risks and benefits of the procedure and the sedation options and risks were discussed with the patient. All questions were answered and informed consent was obtained. - Patient identification and proposed procedure were verified prior to the procedure by the physician and the nurse. The procedure was verified in the pre-procedure area in the procedure room. After obtaining informed consent, the endoscope was passed carefully and meticuously under direct vision and only advanced when the lumen was clearly identified, C02 insuflation was utilized throughout the entirity of the procedure. Throughout the procedure, the patient's blood pressure, pulse, and oxygen saturations were monitored continuously. After obtaining informed consent, the endoscope was passed under direct vision. Throughout the procedure, the patient's blood pressure, pulse, and oxygen saturations were monitored continuously. The Endoscope was introduced through the mouth, and advanced to the second part of duodenum. The upper GI endoscopy was accomplished without difficulty. The patient tolerated the procedure well. Findings: The examined esophagus was normal. Localized moderate inflammation characterized by erythema and friability was found in the gastric antrum. Biopsies were taken with a cold forceps for histology. Biopsies were taken with a cold forceps for Helicobacter pylori testing. The examined duodenum was normal. Impression: - Normal esophagus. - Gastritis. Biopsied. - Normal examined duodenum. Recommendation: - Await pathology results. - [facility] for possible discharge same day. - BID PPI indefinately - Follow Hb - Would arrange outpatient Colonoscopy as previous one was fair prep. Consider other etiologies of anemia if Colonoscopy normal given prior normal VCE Hospital Course (1) Anemia: Acute on chronic anemia Symptomatic anemia Patient is 82-year-old female with PMH DM II, paroxysmal atrial fibrillation, TIA, pulmonary hypertension, secondary hyperparathyroidism, PVD, chronic diastolic heart failure, hypothyroidism, Mnire's disease, RADHA, iron deficiency anemia, CKD III, SSS S/P pacemaker presented to ER with c/o abnormal labs- anemia. Hgb: 7.3 on outpatient labs today. Generalized weakness, SOB, lightheaded Last IV iron on 11/01/22 Colonoscopy 03/11/2022: Few diverticula in sigmoid colon EGD: 03/11/2022: Multiple diminutive sessile fundic gland polyps with no stigmata of recent bleeding found Video capsule: 04/08/2022: Gastric erosions noted, no small bowel abnormality noted In ER Hgb: 7.5 (Hgb 10.6 on 11/18/22 and 9.8 on 10/21/22). Vitals stable. Started on Eliquis 10/2022 S/p transfusion of 1 unit PRBC Repeat Hgb post transfusion 8.7, then next AM 8.0 Current Hgb 8.6 (12/09/2022) Hold Eliquis for now Cont. to closely monitor H&H GI consulted - pt is now s/p EGD (12/09/2022) Findings: The examined esophagus was normal. Localized moderate inflammation characterized by erythema and friability was found in the gastric antrum. Biopsies were taken with a cold forceps for histology. Biopsies were taken with a cold forceps for Helicobacter pylori testing. The examined duodenum was normal. Impression: - Normal esophagus. - Gastritis. Biopsied. - Normal examined duodenum. Recommendation: - Await pathology results. - Return patient to [facility] for possible discharge same day. - BID PPI indefinately - Follow Hb - Would arrange outpatient Colonoscopy as previous one was fair prep. Consider other etiologies of anemia if Colonoscopy normal given prior normal VCE Pantoprazole 40 mg BID Rx sent to pt's pharmacy. Follow up w/ PCP arranged. GI to arrange outpt colonoscopy. Biopsy pending results. Eliquis on hold for flora pending further eval as outpt. Pt understands and in agreement w/ the plan. (2) Paroxysmal atrial fibrillation: Hold Eliquis secondary to acute on chronic anemia Continue sotalol Cardiology consulted, as in need of recommendations on future anticoagulation considerations, risk versus benefit Per cardiology - -Agree with holding Eliquis. Aspirin 81 mg daily continued. Future considerations include proceeding without aspirin but and resuming Eliquis. -Per past pacemaker interrogations, her atrial fibrillation burden is low, but did have a TIA event a month ago. Future considerations include consultation with the structural heart disease/electrophysiology at [facility] for consideration of percutaneous left atrial appendage occlusion (Watchman device) however pr oceeding with this procedure requires the patient to be on anticoagulation for a month prior to the procedure, a month after work, and then 6 months of aspirin and clopidogrel, which often times is not feasible in a patient who is having ongoing bleeding issues. -Continue rhythm control strategy with sotalol 40 mg twice daily. Patient is euvolemic at present. Continue prior to hospital treatment torsemide 10 mg daily. (3) TIA (transient ischemic attack): TIA 10/2022 and was started on Eliquis Unfortunately patient with acute on chronic anemia as above while on Eliquis Continue atorvastatin, aspirin May need neurology consult (4) DM type 2 (diabetes mellitus, type 2): A1c: 6.2 on 08/27/2022 Hold home meds NovoLog sliding scale. Monitor BG to further adjust (5) CKD (chronic kidney disease), stage III: Cr: 1.56 (baseline 1.3-1.6 per record review) Avoid nephrotoxic agents when possible (6) Chronic diastolic (congestive) heart failure: Appears euvolemic Continue torsemide (7) SSS (sick sinus syndrome): S/P pacemaker (8) Asthma, moderate persistent: No acute exacerbation Continue home inhalers, Singulair (9) RADHA (obstructive sleep apnea): BiPAP at bedtime (10) Hypothyroidism: Continue levothyroxine (11) Depression: Continue sertraline Total Time Total Time Spent Total Time Spent (In Minutes): 40 Discharge Plan Discharge Items Patient Disposition: Home - Self-Care Reason For Visit: ANEMIA Discharge Diagnosis: Acute on chronic anemia Gastritis Anticoagulation use Activity: Per Instructions section Non-emergency contact: Primary Care Provider, [employer] Coordinator Call non-emergency contact if: you have any medication questions and your symptoms worsen Follow-up/Referrals: Florentin Calvo DO [Primary Care Provider] - (Date & Time 12/13/2022 10:00 AM Provider Florentin Calvo DO Department Family [facility] [address], [place] ) Diet: Carb Consistent or DM2 Addtl Attending Provider Instructions: Follow-up with your primary care doctor within 1 week. The appointment was scheduled for you for 12/13/2022. In the meantime hold Eliquis. It is recommended that you have colonoscopy done as outpatient. Continue aspirin, make sure that you take it with food. Make sure you take pantoprazole twice a day, indefinitely. Biopsy was obtained during your endoscopy, results are currently pending. After colonoscopy, please discuss with your hand silvering supervisor, your anticoagulation/blood thinner options. Pending Studies at Discharge: Yes Studies:: Biopsy from endoscopy H. pylori testing Stand-Alone Forms: My [employer], Smoking Cessation Medications and DC Order Prescriptions: New pantoprazole 40 mg tablet,delayed release (DR/EC) 40 mg PO BID Qty: 60 0RF Continued montelukast 10 mg tablet 10 mg PO PM alprazolam 0.5 mg tablet 0.25 mg PO HS ferrous sulfate 325 mg (65 mg iron) Tablet 325 mg PO DAILY ipratropium bromide 21 mcg (0.03 %) spray,non-aerosol 2 spray INTRANASAL DAILY Jardiance 10 mg tablet 10 mg PO DAILY atorvastatin 20 mg tablet 20 mg PO QAM allopurinol 100 mg tablet 200 mg PO HS cholecalciferol (vitamin D3) [Vitamin D3] 50 mcg (2,000 unit) Capsule 100 mcg PO QAM aspirin 81 mg Tablet,Delayed Release (Dr/Ec) 81 mg PO HS sertraline 100 mg Tablet 100 mg PO DAILY sotalol 80 mg Tablet 40 mg PO AMPM levalbuterol tartrate [Xopenex HFA] 45 mcg/actuation Hfa Aerosol Inhaler 1 puff INHALATION Q4 PRN (Reason: Shortness Of Breath) cyanocobalamin (vitamin B-12) [Vitamin B-12] 100 mcg Tablet 100 mcg PO DAILY torsemide 10 mg tablet 10 mg PO QAM Stiolto Respimat 2.5-2.5 mcg/actuation mist 2 puff INHALATION QAM folic acid 1 mg Tablet 1 mg PO DAILY levothyroxine 125 mcg capsule 125 mcg PO DAILY Qty: 30 0RF Discontinued lansoprazole 15 mg capsule,delayed release(DR/EC) 15 mg PO QAM Eliquis 2.5 mg Tablet 2.5 mg PO BID Qty: 60 0RF Discharge Orders: Discharge Order (Routine); Ordered 12/09/22 Ordered By: John Natarajan Admission Data Admit Date/Time: 12/06/22 15:33 Attending Provider: John Natarajan Admit Provider: Negrita Decker Primary Care Provider: Florentin Calvo Other Providers: Negrita Decker ; Priscilla Jamil ; Hossein Snowden
--- NOTE | 2022-12-09 12:46 | Cardiology Progress Note ---
Date of Service December 09, 2022 Assessment & Plan (1) Anemia: Plan: 1. Anemia with 2 g drop in hemoglobin compared to October, 2. Sick sinus syndrome, paroxysmal atrial fibrillation, history of dual-chamber permanent pacemaker 3. h/o TIA 4. Chronic diastolic heart failure, pulmonary hypertension Hemoglobin stable posttransfusion. EGD without evidence of acute bleeding. No significant atrial fibrillation burden per recent interrogation. No A-fib on monitor since admission. Recommend holding anticoagulation at this time. Patient may resume low-dose aspirin. Continue sotalol. GI input noted and appreciated. Consider repeat colonoscopy in the outpatient setting. Future considerations include consultation with the structural heart disease/electrophysiology at [facility] for consideration of percutaneous left atrial appendage occlusion (Watchman device) however proceeding with this procedure requires the patient to be on anticoagulation for a month prior to the procedure, a month after work, and then 6 months of aspirin and clopidogrel, which often times is not feasible in a patient who is having ongoing bleeding issues. No further inpatient cardiac testing or intervention at this time. Outpatient [facility] valve clinic appointment scheduled for evaluation of mitral regurgitation 12/18. Admission and Anticipated Discharge Date Admission Date: December 06, 2022 Subjective Patient seen examined the bedside. Feeling well from a cardiovascular perspective. Telemetry reveals sinus rhythm. No evidence of recurrent atrial fibrillation. Most recent device interrogation performed in September 2022 with 0.2% atrial fibrillation burden. Patient denies signs/symptoms of GI blood loss. Notes dark stools attributed to iron supplementation. Specifically denies hematochezia or melena. Review of Systems Review of Systems: All systems reviewed & are unremarkable except as noted in Subjective Physical Exam Constitutional: well nourished; no acute distress Respiratory: no respiratory distress, no labored breathing and no retractions Auscultation: no crackles, no rales, no rhonchi and no wheezes Cardiovascular: Rate/Rhythm: regular rate and regular rhythm Heart Sounds: normal S1 and normal S2; no murmur Vessels: no JVD and no carotid bruit Extremities: no edema Gastrointestinal (Abdomen): Inspection/Auscultation: normal bowel sounds; abdomen not distended Percussion/Palpation: abdomen soft; abdomen nontender, no guarding and abdomen not rigid Neurologic: CN's II-XI intact bilaterally and moves all extremities; no focal motor deficits Motor/Sensory: no tremor Psychiatric: A+Ox3, euthymic affect Results & Data Vital Signs (Past 12 Hours) Vital Signs Temp Pulse Pulse Pulse Pulse Resp BP 12/09/22 12:36 36.3 C L 64 60 73 18 113/62 12/09/22 09:47 60 18 113/62 12/09/22 09:30 59 L 16 109/52 L 12/09/22 09:15 64 14 102/48 L 12/09/22 08:27 36.3 C L 107 H 20 130/83 12/09/22 07:35 36.4 C L 62 20 120/67 12/09/22 07:33 12/09/22 06:05 60 12/09/22 03:40 126/73 12/09/22 03:03 36.4 C L 61 18 105/46 L 12/09/22 01:00 12/09/22 00:57 109/63 BP Pulse Ox O2 Del Method 12/09/22 12:36 107/59 L 93 12/09/22 09:47 93 Room Air 12/09/22 09:30 93 Room Air 12/09/22 09:15 93 Room Air 12/09/22 08:27 95 Room Air 12/09/22 07:35 93 Room Air 12/09/22 07:33 Room Air 12/09/22 06:05 12/09/22 03:40 12/09/22 03:03 93 Room Air 12/09/22 01:00 96 Room Air 12/09/22 00:57 Laboratory Results CBC 12/09/22 Range/Units 05:30 Hgb 8.6 L (12.0-16.0) g/dl Hct 26.2 L (37.0-47.0) % Comprehensive Metabolic Panel 12/09/22 Range/Units 05:30 Sodium 138 (136-145) mmol/L Potassium 4.0 (3.5-5.1) mmol/L Chloride 109 H (98-107) mmol/L Carbon Dioxide 21 (21-32) mmol/L BUN 42 H (6-23) mg/dl Creatinine 1.34 H (0.6-1.2) mg/dl Glucose 108 H (70-99(Fasting)) mg/dl Calcium 8.9 (8.6-10.3) mg/dl Intake and Output 12/08/22 12/09/22 12/09/22 22:59 06:59 14:59 Intake Total 240 / 780 Balance 240 / 780 Intake: Oral 240 / 780 Other: Other Intake Source npo # Unmeasured Voids 1 1 Weight 73.7 kg 73.7 kg Weight Measurement Method Standing Scale Patient Weight 12/10/22 06:59 Weight 73.7 kg
--- NOTE | 2022-12-12 13:09 | Coding Query ---
CODING QUERY To promote full compliance with coding requirements relating to patient care, provider participation is requested in all cases of director fundraising uncertainty. Please assist us with the question(s) below: Coding Question(s): The ER documents GI bleed as one of the diagnosis under Differential Diagnosis, and the EGD documents in the Indications area, "Iron deficiency anemia secondary to chronic blood loss". There is no other documentation regarding blood loss/bleeding. It is not clear if the patient was treated/evaluated/monitored or evaluated for possible GI Bleed during this admission. Please specify below, in your clinical opinion: ( x) Possible GI Bleed was treated/evaluated/monitored - pt underwent upper endoscopy - as evaluation of possible GI bleed - found to have gastritis. Plan for outpatient colonoscopy to further identify possible source of GI bleed. ( ) Possible GI Bleed was not treated/evaluated/monitored ( ) Other: Please Specify Physician's Response(s): Thank you Manuela Easton Principal Diagnosis: "that condition established after study, to be chiefly responsible for occasioning the admission of the patient to the hospital for care." Co-Existing Principal Diagnosis: "when two or more diagnoses equally meet the criteria for principal diagnosis as determined by the circumstances of admission, diagnostic work up, and/or therapy provided, and the Alphabetic Index, Tabular List, or another coding guideline does not provide sequencing direction, any one of the diagnoses may be sequenced first." "When the physician has documented what appears to be a current diagnosis in the body of the record, but has not included the diagnosis in the final diagnostic statement, the physician should be asked whether the diagnosis should be added." (Source [facility]oding [facility] 2 QTR90. p3-4) MTDD
--- NOTE | 2022-12-12 13:11 | Coding Query ---
ANEMIA To promote full compliance with coding requirements relating to patient care, physician participation is requested in all cases of remote inpatient coder uncertainty. Please assist us with the question(s) below: Coding Question(s): The record reflects the following clinical findings: Acute on Chronic Anemia is documented, as on Discharge Summary, with EGD documenting under Indications, Iron deficiency anemia secondary to chronic blood loss, Iron deficiency anemia. Please specify the type of Acute Anemia: If these findings are indicative of anemia, please specify the known or suspected type by placing an "X" within the parenthesis (x). If other, please document type. Examples are: ( ) Acute blood loss anemia ( ) Acute Postoperative blood loss anemia ( ) Acute postoperative anemia due to dilutional fluids ( ) Chronic blood loss anemia ( ) Anemia of chronic disease ( ) Aplastic anemia ( ) Anemia due to renal disease ( ) Anemia in neoplastic disease ( ) Iron deficient anemia ( ) Anemia, unspecified or other (x) Other: (please specify) - hx of iron def. anemia - likely due to chronic blood loss - therefore evaluation with endoscopy warranted - to eval for possible GI bleed - found to have gastritis on upper endoscopy - in the setting of using anticoagulation could be worsening chronic blood loss (acute on chronic). Outpatient colonoscopy also planned to further eval for poss. GI blood loss. As discussed in GI note - if no further source found, other causes of anemia will need to be further examined. ( ) Unable to determine Thank you Manuela Easton [facility]
== END 2022-12-09 14:40 | disposition home health service (06) | DRG 811 ==
LOC: ED 12:30 → SUATTDRO 15:33 → EDINP 15:33 → 2N 20:33

== ENCOUNTER 2023-08-14 14:09 | Observation (INO) ==
--- NOTE | 2023-08-14 15:10 | Emergency Department Note ---
History of Present Illness General Chief complaint: TIA Symptoms Stated complaint: POSS PARTIAL STROKE LAST NIGHT Time Seen by Provider: 08/14/23 14:58 History of Present Illness 82-year-old female presents emergency department with a complaint of onset at an unknown time last evening of slurred speech and difficulty moving that started while she was in bed. Patient states that she was having slurred speech lasting approximately 30 minutes and was unable to get out of bed as she was trying to go to the bathroom. Patient woke up this morning and felt better. Patient is currently on Plavix. Patient has a prior history of TIA. Patient denies a headache or slurred speech currently. Family at bedside states that she is back to her baseline. Home Medications Medication Instructions Recorded Confirmed Type alprazolam 0.5 mg tablet 0.25 mg PO HS 04/08/19 12/06/22 History montelukast 10 mg tablet 10 mg PO PM 04/08/19 12/06/22 History ferrous sulfate 325 mg (65 mg 325 mg PO DAILY 06/03/20 12/06/22 History iron) tablet allopurinol 100 mg tablet 200 mg PO HS 11/26/21 12/06/22 History atorvastatin 20 mg tablet 20 mg PO QAM 11/26/21 12/06/22 History cholecalciferol (vitamin D3) 50 100 mcg PO QAM 11/26/21 12/06/22 History mcg (2,000 unit) capsule (Vitamin D3) aspirin 81 mg tablet,delayed 81 mg PO HS 01/04/22 12/06/22 History release levalbuterol tartrate 45 1 puff inhalation Q4 PRN Shortness 08/07/22 12/06/22 History mcg/actuation aerosol inhaler Of Breath (Xopenex HFA) sertraline 100 mg tablet 100 mg PO DAILY 08/07/22 12/06/22 History sotalol 80 mg tablet 40 mg PO AMPM 08/07/22 12/06/22 History cyanocobalamin (vitamin B-12) 100 100 mcg PO DAILY 11/07/22 12/06/22 History mcg tablet (Vitamin B-12) folic acid 1 mg tablet 1 mg PO DAILY 11/07/22 12/06/22 History tiotropium 2.5 mcg-olodaterol 2.5 2 puff inhalation QAM 11/07/22 12/06/22 History mcg/actuation mist for inhalation (Stiolto Respimat) torsemide 10 mg tablet 10 mg PO QAM 11/07/22 12/06/22 History levothyroxine 125 mcg capsule 125 mcg PO DAILY #30 caps 11/13/22 12/06/22 Rx empagliflozin 10 mg tablet 10 mg PO DAILY 12/06/22 12/06/22 History (Jardiance) ipratropium bromide 21 mcg (0.03 2 spray intranasal DAILY 12/06/22 12/06/22 History %) nasal spray pantoprazole 40 mg tablet,delayed 40 mg PO BID #60 tabs 12/09/22 Rx release Allergies Allergy/AdvReac Type Severity Reaction Status Date / Time Sulfa (Sulfonamide Allergy Severe Severe Verified 12/06/22 16:15 Antibiotics) rxn: rash and hives celecoxib Allergy Intermediate Rash/Hives/ Verified 12/06/22 16:15 Itching. cephalexin Allergy Intermediate Rash/Hives/ Verified 12/06/22 16:15 Itching. furosemide Allergy Intermediate Rash/Hives/ Verified 12/06/22 16:15 Itching. gabapentin Allergy Intermediate Rash/Hives/ Verified 12/06/22 16:15 Itching. pregabalin Allergy Intermediate Rash/Hives/ Verified 12/06/22 16:15 Itching. meclizine Allergy Unknown Unknown Verified 12/06/22 16:15 methylprednisolone Allergy Unknown Rash/Hives/ Verified 12/06/22 16:15 Itching. Penicillins Allergy Unknown Unknown. Verified 12/06/22 16:15 prednisone Allergy Unknown Rash/Hives/ Verified 12/06/22 16:15 Itching. vancomycin Allergy Unknown Jodi Verified 12/06/22 16:15 syn. . nickel Allergy Unknown Verified 12/06/22 16:15 dexamethasone AdvReac Intermediate Steroid Verified 12/06/22 16:15 psychosis. Past Med/Surg History Medical History SSS (sick sinus syndrome) Chronic diastolic (congestive) heart failure TIA (transient ischemic attack) Nausea Leukocytosis Near syncope Hypotension Dehydration TIFFANY (acute kidney injury) Near syncope Elevated brain natriuretic peptide (BNP) level Pneumonia Atrial flutter Carotid artery aneurysm Prolonged QT interval Atrial fibrillation with RVR DM type 2 (diabetes mellitus, type 2) History of tobacco abuse Encounter for pre-operative examination Cholelithiasis Cholecystitis Chest pain at rest Pulmonary emphysema Osteoarthritis of right knee HTN (hypertension) RADHA (obstructive sleep apnea) Atrial fibrillation and flutter CKD (chronic kidney disease), stage III Meniere disease Depression Hypothyroidism Asthma, moderate persistent Surgical History History of hysterectomy History of cholecystectomy History of repair of left rotator cuff Hx of neck surgery H/O sinus surgery History of laminectomy Family History Father Diabetes Social History Smoking Status: Never smoker Tobacco Type: Cigarettes packs per day: 1.5; Cigarettes Per Day: 30; Second Hand Exposure: No; Do You Dip or Chew Tobacco: No; Hx Alcohol Use: No Hx Substance Use: No Preferred Language: Bermudian Communication Ability: Effective Clinical Laboratory Technician Required: No Beliefs That Will Affect Care: None marital status: Current Living Situation: Spouse Feels Safe at Home: Yes Assistive Devices: Cane and Walker Review of Systems A total of 10 systems reviewed and were otherwise negative Respiratory: no cough and no dyspnea Cardiovascular: no chest pain Physical Exam Vital Signs Vital Signs - 24 hr 08/14/23 14:18 Temperature 36.5 C Temperature Source Temporal Artery Scan Pulse Rate 72 Respiratory Rate 18 Respiratory Effort / Characteristics Non-Labored Spontaneous Respiratory Depth Normal Blood Pressure 136/62 Blood Pressure Mean 86 Pulse Oximetry 97 Oxygen Delivery Method Room Air Sepsis Recent Fever Within 48 Hours No Sepsis New/Unexplained Change in Mental Status No Sepsis Action Taken by Nursing No Action Required GENERAL: Patient is awake alert in no acute distress patient is resting comfortably and showing no signs of anxiety EYES: The conjunctivae are clear. The pupils are round and reactive. EARS, NOSE, MOUTH AND THROAT: The nose is without any evidence of any deformity. Mucous membranes are moist. Tongue is midline. NECK: The neck is nontender and supple. RESPIRATORY: Normal respiratory effort is noted there is no evidence of wheezing rhonchi or rales CARDIOVASCULAR: Regular rate and rhythm noted there no murmurs rubs or gallops normal S1 normal S2. GASTROINTESTINAL: The abdomen is soft. Abdomen is nontender. BACK: No midline tenderness or or step-off noted range of motion in flexion extension as well as rotation no signs of muscle spasm noted MUSCULOSKELETAL/EXTREMITIES: There is no evidence of gross deformity full range of motion is noted in the hips and shoulders. SKIN: There is no obvious evidence of any rash. There are no petechiae, pallor or cyanosis noted. NEUROLOGIC: Patient is awake alert and oriented x3 strength is symmetric; NIH 0 Course Reevaluation(s) Reevaluation #1: Patient is resting in no distress, NIH of 0 Time: 16:00 Consultations Consultation #1: Case was discussed with the [facility] for admission for TIA symptoms Time: 16:15 Administered Medications Discontinued Medications Ioversol (Optiray 320 125ml) 118 ml IV ONCE ONE Stop: 08/14/23 15:16 Last Admin: 08/14/23 15:15 Dose: 118 ml Documented By: CANDICE Medical Decision Making Medical Records Attestation: I reviewed the patient's medical records. Home Medications Current Medication List: was personally reviewed by me Laboratory Data Attestation: I reviewed the patient's lab results. Labs interpreted by me patient has mild anemia which appears to be chronic in nature, patient has an elevated creatinine of 1.92 which is around her baseline with a history of CKD 08/14/23 14:50 08/14/23 14:50 Lab Results 08/14/23 08/14/23 Range/Units 14:50 15:07 WBC 9.64 (4.8-10.8) K/ul RBC 3.16 L (4.20-5.40) M/uL Hgb 9.6 L (12.0-16.0) g/dl POC Hgb 9.5 L (12.0-16.0) g/dl Hct 29.4 L (37.0-47.0) % POC Hct 28 L (37-47) % MCV 93.0 (80.0-100.0) fL MCH 30.4 (25.0-34.0) pg MCHC 32.7 (32.0-36.0) g/dL RDW Std Deviation 55.6 H (36.4-46.3) fL RDW Coeff of Francisco Javier 16.3 H (11.5-14.5) % Plt Count 233 (130-400) K/uL MPV 11.2 (9.4-12.4) fL Immature Gran % (Auto) 0.4 % Neut % (Auto) 70.4 % Lymph % (Auto) 13.1 % [facility] % (Auto) 7.5 % Eos % (Auto) 7.9 % Baso % (Auto) 0.7 % Neut # (Auto) 6.79 H (1.40-6.50) K/uL Lymph # (Auto) 1.26 (1.20-3.40) K/uL [facility] # (Auto) 0.72 H (0.11-0.59) K/uL Eos # (Auto) 0.76 H (0.00-0.50) K/uL Baso # (Auto) 0.07 (0.00-0.20) K/uL Immature Gran # (Auto) 0.04 (0.01-0.20) K/uL PT 10.9 (9.0-12.0) Seconds INR 1.0 (0.9-1.1) APTT 27 (21-31) Seconds PTT Ratio 1.0 POC Sodium 139 (135-144) mmol/L Sodium 138 (136-145) mmol/L POC Potassium 4.5 (3.3-5.0) mmol/L Potassium 4.4 (3.5-5.1) mmol/L POC Chloride 107 (101-112) mmol/L Chloride 105 (98-107) mmol/L Carbon Dioxide 24 (21-32) mmol/L POC Total CO2 22 L (24-31) mmol/L Anion Gap 9 (3-11) POC Anion Gap 15.0 L (16-25) mmol/L POC BUN 50 H (7-18) mg/dl BUN 55 H (6-23) mg/dl Creatinine 1.92 H (0.6-1.2) mg/dl POC Creatinine 2.0 H (0.6-1.3) mg/dl Est Cr Clr Drug Dosing 22.8 ml/min Est GFR ( Amer) 27.6 ml/min Est GFR (Non-Af Amer) 23.8 ml/min BUN/Creatinine Ratio 28.6 H (10-20) Glucose 153 H (70-99(Fasting)) mg/dl POC Glucose (other) 140 H (70-99) mg/dl Calcium 9.4 (8.6-10.3) mg/dl POC Ioniz Calcium Savage 1.20 (1.12-1.32) mmol/l Magnesium 2.4 (1.7-2.4) mg/dl Total Bilirubin 0.5 (0.2-1.0) mg/dl AST 48 H (13-39) U/L ALT 25 (7-52) U/L Alkaline Phosphatase 176 H (34-104) U/L Troponin I High Sens 9.9 (0-14) pg/ml Total Protein 7.3 (6.0-8.3) gm/dl Albumin 4.3 (3.4-5.0) gm/dl Globulin 3.0 (2.5-4.0) gm/dl Albumin/Globulin Ratio 1.4 (0.9-2) Imaging Data Attestation: I personally reviewed and interpreted this imaging study as follows: My Impression: CT brain per my interpretation is negative for intracranial hemorrhage Radiologist's Impression: Head CT 08/14/23 14:58 CT OF THE HEAD WITHOUT CONTRAST CLINICAL HISTORY: neuro deficit, acute stroke suspected COMPARISON STUDY: MRI of the brain and head CT November 07, 2022. TECHNIQUE: Helical axial images of the head were obtained without IV contrast. Automated exposure control was utilized for the study. A dose lowering technique was utilized adhering to the principles of ALARA. FINDINGS: No acute intracranial hemorrhage, midline shift or mass effect is present. The ventricular system is stable. White matter hypodensities are unchanged and favor small vessel disease. The basal cisterns are patent. No extra-axial collections are present. There are no findings to suggest acute dural sinus thrombosis or acute territorial infarct. No significant calvarial abnormalities are present. Extensive sinus opacification is noted. This has progressed since exam of November 07, 2022. IMPRESSION: 1. No acute intracranial findings. No change in appearance of the brain. 2. Progression of extensive sinus opacification. ACT 112: Negative or not required by law. Electronically signed by: Otoniel Lemus M.D. 08/14/2023 3:33 PM Head CTA 08/14/23 14:58 CT angio head w con CLINICAL HISTORY: neuro deficit, acute stroke suspected TECHNIQUE: CT angiography of the head was performed following intravenous administration of iodinated contrast. Coronal and sagittal MIPS were obtained from the axial data set and were submitted for review. Automated dose lowering techniques and/or adjustment according to patient size were utilized for this examination. All measurements were calculated based on NASCET criteria. CT DOSE: 908.62 mGy.cm Comparison: None available at the time of this dictation. FINDINGS: CTA Head: The anterior and posterior cerebral circulations are patent. No hemodynamically significant stenosis, aneurysm, dissection, or arteriovenous malformation is shown. IMPRESSION: 1. No occlusion, hemodynamically significant stenosis, aneurysm, dissection, or arteriovenous malformation in the major intracranial arteries. Assessment of stenosis of the internal carotid arteries is based on NASCET criteria. ACT 112: Negative or not required by law. Electronically signed by: Christian Murray M.D. 08/14/2023 3:39 PM Neck CTA 08/14/23 14:58 CT ANGIOGRAPHY OF THE NECK WITH CONTRAST CLINICAL HISTORY: neuro deficit, acute stroke suspected COMPARISON STUDY: CTA of the neck November 07, 2022. Technique: CT angiography of the carotid and vertebral arteries was obtained using Optiray and 3D reconstruction on an independent workstation. NASCET criteria was utilized. Automated exposure control was utilized for the study. A dose lowering technique was utilized adhering to the principles of ALARA. Findings: Postoperative findings within the cervical spine are unchanged. There is no cervical lymphadenopathy. No cervical spine fractures are present. The bilateral common carotid, cervical internal carotid and vertebral arteries are patent. There is minimal noncalcified plaque within the proximal right internal carotid artery without stenosis. There is minimal plaque within the left carotid bifurcation without stenosis. There is no dissection or aneurysm within the major vessels of the neck. IMPRESSION: No stenosis or dissection within the bilateral common carotid, cervical internal carotid or vertebral arteries. ACT 112: Negative or not required by law. Electronically signed by: Otoniel Lemus M.D. 08/14/2023 3:40 PM ECG Data Attestation: I personally reviewed and interpreted this ECG as follows: Additional Comments: EKG interpreted by me paced rhythm rate of 60, no obvious ST segment elevation or depression, normal axis Telemetry was ordered by me, interpreted as paced rhythm rate of 60 MDM Narrative Medical decision making differential diagnosis includes TIA, CVA, intracranial hemorrhage, electrolyte abnormality, cardiac dysrhythmia Plan is to check labs, EKG, CTs of the brain and neck Patient's symptoms are greater than 6 hours, patient is reportedly back to baseline, NIH of 0, the patient is not a candidate for TNK at this time Cardiology note from November 2022 was reviewed by me patient has a history of paroxysmal atrial fibrillation, and is currently on Plavix; Family is at bedside who states that the patient reported that she had slurred speech last night. Patient also had a watchman implanted 2 weeks ago Patient will be admitted for further evaluation due to the fact that she has paroxysmal A-fib currently on Plavix and her presentation is suggestive of TIA and she will need further evaluation for stroke Case was discussed with the [facility] hospitalist for admission Impression & Plan TIA (transient ischemic attack), Anemia, CKD (chronic kidney disease) Discharge Plan Visit Data Chief Complaint: TIA Symptoms Stated Complaint: POSS PARTIAL STROKE LAST NIGHT ED Provider: Pritesh Bernabe Discharge Problem: TIA (transient ischemic attack), Anemia, CKD (chronic kidney disease) Patient Disposition: Admitted As Inpatient Forms Stand Alone Forms: My [facility] Prescriptions Prescriptions: No Action montelukast 10 mg tablet 10 mg PO PM alprazolam 0.5 mg tablet 0.25 mg PO HS ferrous sulfate 325 mg (65 mg iron) Tablet 325 mg PO DAILY ipratropium bromide 21 mcg (0.03 %) spray,non-aerosol 2 spray INTRANASAL DAILY Jardiance 10 mg tablet 10 mg PO DAILY pantoprazole 40 mg tablet,delayed release (DR/EC) 40 mg PO BID Qty: 60 0RF atorvastatin 20 mg tablet 20 mg PO QAM allopurinol 100 mg tablet 200 mg PO HS cholecalciferol (vitamin D3) [Vitamin D3] 50 mcg (2,000 unit) Capsule 100 mcg PO QAM aspirin 81 mg Tablet,Delayed Release (Dr/Ec) 81 mg PO HS sertraline 100 mg Tablet 100 mg PO DAILY sotalol 80 mg Tablet 40 mg PO AMPM levalbuterol tartrate [Xopenex HFA] 45 mcg/actuation Hfa Aerosol Inhaler 1 puff INHALATION Q4 PRN (Reason: Shortness Of Breath) cyanocobalamin (vitamin B-12) [Vitamin B-12] 100 mcg Tablet 100 mcg PO DAILY torsemide 10 mg tablet 10 mg PO QAM Stiolto Respimat 2.5-2.5 mcg/actuation mist 2 puff INHALATION QAM folic acid 1 mg Tablet 1 mg PO DAILY levothyroxine 125 mcg capsule 125 mcg PO DAILY Qty: 30 0RF Referrals Referrals: Florentin Calvo DO [Primary Care Provider] -
[2023-08-14] MEDS ORDERED: OPTIRAY 320 125ml IV ONE (15:15)
[2023-08-14 15:19] LABS: iSTAT Hemoglobin 9.5 g/dl (12.0-16.0); iSTAT Ionized Calcium 1.2 mmol/l (1.12-1.32); iSTAT Potassium 4.5 mmol/L (3.3-5.0)
--- NOTE | 2023-08-14 15:34 | CT Scan Report ---
CT OF THE HEAD WITHOUT CONTRAST CLINICAL HISTORY: neuro deficit, acute stroke suspected COMPARISON STUDY: MRI of the brain and head CT November 07, 2022. TECHNIQUE: Helical axial images of the head were obtained without IV contrast. Automated exposure con trol was utilized for the study. A dose lowering technique was utilized adhering to the principles o f ALARA. FINDINGS: No acute intracranial hemorrhage, midline shift or mass effect is present. The ventricular system is stable. White matter hypodensities are unchanged and favor small vessel disease. The basal cisterns are patent. No extra-axial collections are present. There are no findings to suggest acute d ural sinus thrombosis or acute territorial infarct. No significant calvarial abnormalities are presen t. Extensive sinus opacification is noted. This has progressed since exam of November 07, 2022. IMPRESSION: 1. No acute intracranial findings. No change in appearance of the brain. 2. Progression of extensive sinus opacification. ACT 112: Negative or not required by law. Electronically signed by: Otoniel Lemus M.D. 08/14/2023 3:33 PM
--- NOTE | 2023-08-14 15:41 | CT Scan Report ---
CT ANGIOGRAPHY OF THE NECK WITH CONTRAST CLINICAL HISTORY: neuro deficit, acute stroke suspected COMPARISON STUDY: CTA of the neck November 07, 2022. Technique: CT angiography of the carotid and vertebral arteries was obtained using Optiray and 3D rec onstruction on an independent workstation. NASCET criteria was utilized. Automated exposure control was utilized for the study. A dose lowering technique was utilized adhering to the principles of ALA RA. Findings: Postoperative findings within the cervical spine are unchanged. There is no cervical lympha denopathy. No cervical spine fractures are present. The bilateral common carotid, cervical internal c arotid and vertebral arteries are patent. There is minimal noncalcified plaque within the proximal ri ght internal carotid artery without stenosis. There is minimal plaque within the left carotid bifurca tion without stenosis. There is no dissection or aneurysm within the major vessels of the neck. IMPRESSION: No stenosis or dissection within the bilateral common carotid, cervical internal carotid or vertebral arteries. ACT 112: Negative or not required by law. Electronically signed by: Otoniel Lemus M.D. 08/14/2023 3:40 PM
--- NOTE | 2023-08-14 15:41 | CT Scan Report ---
CT angio head w con CLINICAL HISTORY: neuro deficit, acute stroke suspected TECHNIQUE: CT angiography of the head was performed following intravenous administration of iodinate d contrast. Coronal and sagittal MIPS were obtained from the axial data set and were submitted for re view. Automated dose lowering techniques and/or adjustment according to patient size were utilized f or this examination. All measurements were calculated based on NASCET criteria. CT DOSE: 908.62 mGy.cm Comparison: None available at the time of this dictation. FINDINGS: CTA Head: The anterior and posterior cerebral circulations are patent. No hemodynamically significan t stenosis, aneurysm, dissection, or arteriovenous malformation is shown. IMPRESSION: 1. No occlusion, hemodynamically significant stenosis, aneurysm, dissection, or arteriovenous malfor mation in the major intracranial arteries. Assessment of stenosis of the internal carotid arteries is based on NASCET criteria. ACT 112: Negative or not required by law. Electronically signed by: Christian Murray M.D. 08/14/2023 3:39 PM
[2023-08-14 15:46] LABS: Albumin Globulin Ratio 1.4 (0.9-2); Albumin Level 4.3 gm/dl (3.4-5.0); BUN Creatinine Ratio 28.6 (10-20); Bilirubin,Total 0.5 mg/dl (0.2-1.0); Calcium 9.4 mg/dl (8.6-10.3); Creatinine Clr Calc Pharmacy 22.8 ml/min; Est GFR (African American) 27.6 ml/min; Est GFR (Non-African American) 23.8 ml/min; Magnesium 2.4 mg/dl (1.7-2.4); Potassium 4.4 mmol/L (3.5-5.1); Total Protein 7.3 gm/dl (6.0-8.3)
[2023-08-14 15:51] LABS: Troponin I High Sensitivity 9.9 pg/ml (0-14)
[2023-08-14 15:53] LABS: Basophils # (auto) 0.07 K/uL (0.00-0.20); Basophils % (auto) 0.7 %; Eosinophils # (auto) 0.76 K/uL (0.00-0.50); Eosinophils % (auto) 7.9 %; Hematocrit (blood only) 29.4 % (37.0-47.0); Hemoglobin 9.6 g/dl (12.0-16.0); Immature Granulocytes # (auto) 0.04 K/uL (0.01-0.20); Immature Granulocytes % (auto) 0.4 %; Lymphocytes # (auto) 1.26 K/uL (1.20-3.40); Lymphocytes % (auto) 13.1 %; Mean Corpuscular Hemoglobin 30.4 pg (25.0-34.0); Mean Corpuscular Hgb Conc 32.7 g/dL (32.0-36.0); Mean Platelet Volume 11.2 fL (9.4-12.4); Monocytes # (auto) 0.72 K/uL (0.11-0.59); Monocytes % (auto) 7.5 %; Neutrophils # (auto) 6.79 K/uL (1.40-6.50); Neutrophils % (auto) 70.4 %; Platelet Count 233 K/uL (130-400); RDW Coefficient of Variation 16.3 % (11.5-14.5); RDW Standard Deviation 55.6 fL (36.4-46.3); Red Blood Count 3.16 M/uL (4.20-5.40); White Blood Count 9.64 K/ul (4.8-10.8)
[2023-08-14 16:06] LABS: Partial Thromboplastin Time 27 Seconds (21-31); Prothrombin Time 10.9 Seconds (9.0-12.0)
--- NOTE | 2023-08-14 16:50 | History & Physical Report ---
Date of Service August 14, 2023 Assessment & Plan (1) TIA (transient ischemic attack): (2) Paroxysmal atrial fibrillation: (3) Chronic diastolic (congestive) heart failure: (4) CKD (chronic kidney disease): (5) Anemia: (6) Cardiac pacemaker in situ: (7) CAD (coronary artery disease): Plan This is a 82-year-old female who has a significant past medical history of CAD, history of PAF, presence of Watchman device, chronic diastolic CHF, cardiac pacemaker in situ, severe tricuspid regurg, pulm hypertension, history of mitral valve clip implantation, 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 TIA - slurred speech for ~ 30 minutes over night hx of TIA admit to pcu for further work up MRI brain consult neurology echo to eval for PFO tele monitoring pacer interrogation for afib a1c, lipid panel in a.m. PT/OT/ST currently on ASA, Plavix 2/2 watchmen device, also on statin therapy PAF Watchmen device procedure 07/[address] Rivera Cardiac pacemaker insitu 2/2 SSS not on AC due to severe GIB in past continue sotalol Chronic HFpEF 2/2 MV insufficiency s/p mitraclip 03/06/23 doing well daily weights, I and O continue torsemide CKD-3b follows Dr. Green bun/cr 55 and 1.92 recently seen on 08/13 and recommendation was to take additional 10mg of torsemide twice weekly on top of 20mg daily dosing baseline cr 1.9 T2DM diet controlled, last a1c 6.9 obtain a1c in a.m. novolog per protocol, liberal coverage in setting of age RADHA O2 at HS HLD chronic,stable continue statin DVT ppx: SCDs, on asa, plavix, hx of severe GIB in past DNR/DNI PCP: Dr. Calvo Dispo: admit for TIA w/u, likely discharge tomorrow Pt was seen and examined in collaboration with Dr. Gibbs, please see addendum A total of 82 minutes was spent coordinating, documenting, and providing care for this patient excluding time spent in the performance of separately billed services. This included personally viewing all current laboratories and imaging studies, medication reconciliation, outpatient chart review, and discussion with specialists. History of Present Illness Chief Complaint: slurred speech that occurred overnight for 30 minutes and resolved. Primary Care Provider: Florentin Calvo DO This is a 82-year-old female who has a significant past medical history of CAD, history of PAF, presence of Watchman device, chronic diastolic CHF, cardiac pacemaker in situ, severe tricuspid regurg, pulm hypertension, history of mitral valve clip implantation, 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 Overnight she got up and had difficulty with speech and her couldn't understand her. Her has dementia and this is not abnormal, but she was able to notice that her speech was slurred. She feels this lasted approx 30 minutes. This has never happened before. She has hx of TIA in past, but does not recall what happened at that time. Son at bedside felt like she may have had facial droop. She denied any unilateral weakness, difficulty swallowing or facial droop at this time. Currently her symptoms have resolved. She denies any fever, chills, sweats, lightheadedness, dizziness, chest pain, shortness with, nausea, vomiting, abdominal pain, change in bowel or urinary habits. Of significance earlier this month she underwent a Watchman device placement for her paroxysmal atrial fibrillation. She tolerated the procedure well. Earlier this year she also had a mitral valve clip implantation which significantly helped her heart failure. In ED patient remained hemodynamically stable. Notable lab abnormalities include H&H 9.6 and 29.4, BUN 55 and creatinine 1.92, glucose 153, AST 48 and alk phos 176. She underwent head CT which was negative for any acute intracranial findings. Head and neck CTA was negative for occlusion, stenosis or dissection. Son is at bedside who helps elicit hx. Allergies Allergy/AdvReac Type Severity Reaction Status Date / Time Sulfa (Sulfonamide Allergy Severe Severe Verified 12/06/22 16:15 Antibiotics) rxn: rash and hives celecoxib Allergy Intermediate Rash/Hives/ Verified 12/06/22 16:15 Itching. cephalexin Allergy Intermediate Rash/Hives/ Verified 12/06/22 16:15 Itching. furosemide Allergy Intermediate Rash/Hives/ Verified 12/06/22 16:15 Itching. gabapentin Allergy Intermediate Rash/Hives/ Verified 12/06/22 16:15 Itching. pregabalin Allergy Intermediate Rash/Hives/ Verified 12/06/22 16:15 Itching. meclizine Allergy Unknown Unknown Verified 12/06/22 16:15 methylprednisolone Allergy Unknown Rash/Hives/ Verified 12/06/22 16:15 Itching. Penicillins Allergy Unknown Unknown. Verified 12/06/22 16:15 prednisone Allergy Unknown Rash/Hives/ Verified 12/06/22 16:15 Itching. vancomycin Allergy Unknown Jodi Verified 12/06/22 16:15 syn. . nickel Allergy Unknown Verified 12/06/22 16:15 dexamethasone AdvReac Intermediate Steroid Verified 12/06/22 16:15 psychosis. Home Medications Medication Instructions Recorded Confirmed Type montelukast 10 mg tablet 10 mg PO PM 04/08/19 08/14/23 History ferrous sulfate 325 mg (65 mg 325 mg PO DAILY 06/03/20 08/14/23 History iron) tablet atorvastatin 20 mg tablet 20 mg PO QAM 11/26/21 08/14/23 History cholecalciferol (vitamin D3) 50 100 mcg PO QAM 11/26/21 08/14/23 History mcg (2,000 unit) capsule (Vitamin D3) aspirin 81 mg tablet,delayed 81 mg PO HS 01/04/22 08/14/23 History release levalbuterol tartrate 45 1 puff inhalation Q4 PRN Shortness 08/07/22 08/14/23 History mcg/actuation aerosol inhaler Of Breath (Xopenex HFA) sertraline 100 mg tablet 100 mg PO DAILY 08/07/22 08/14/23 History sotalol 80 mg tablet 40 mg PO AMPM 08/07/22 08/14/23 History cyanocobalamin (vitamin B-12) 100 100 mcg PO DAILY 11/07/22 08/14/23 History mcg tablet (Vitamin B-12) folic acid 1 mg tablet 1 mg PO DAILY 11/07/22 08/14/23 History tiotropium 2.5 mcg-olodaterol 2.5 2 puff inhalation QAM 11/07/22 08/14/23 History mcg/actuation mist for inhalation (Stiolto Respimat) torsemide 10 mg tablet 20 mg PO QAM 11/07/22 08/14/23 History levothyroxine 125 mcg capsule 125 mcg PO DAILY #30 caps 11/13/22 08/14/23 Rx ipratropium bromide 21 mcg (0.03 2 spray intranasal DAILY 12/06/22 08/14/23 History %) nasal spray pantoprazole 40 mg tablet,delayed 40 mg PO BID #60 tabs 12/09/22 08/14/23 Rx release allopurinol 300 mg tablet 300 mg PO HS 08/14/23 08/14/23 History clopidogrel 75 mg tablet 75 mg PO PM 08/14/23 08/14/23 History lorazepam 1 mg tablet 1 mg PO HS PRN sleep/anxiety 08/14/23 08/14/23 History Past Med/Surg History Medical History SSS (sick sinus syndrome) Chronic diastolic (congestive) heart failure TIA (transient ischemic attack) Nausea Leukocytosis Near syncope Hypotension Dehydration TIFFANY (acute kidney injury) Near syncope Elevated brain natriuretic peptide (BNP) level Pneumonia Atrial flutter Carotid artery aneurysm Prolonged QT interval Atrial fibrillation with RVR DM type 2 (diabetes mellitus, type 2) History of tobacco abuse Encounter for pre-operative examination Cholelithiasis Cholecystitis Chest pain at rest Pulmonary emphysema Osteoarthritis of right knee HTN (hypertension) RADHA (obstructive sleep apnea) Atrial fibrillation and flutter CKD (chronic kidney disease), stage III Meniere disease Depression Hypothyroidism Asthma, moderate persistent Surgical History History of hysterectomy History of cholecystectomy History of repair of left rotator cuff Hx of neck surgery H/O sinus surgery History of laminectomy Family History Father Diabetes Social History Smoking Status: Former smoker Tobacco Type: Cigarettes packs per day: 1.5; Cigarettes Per Day: 30; Second Hand Exposure: No; Do You Dip or Chew Tobacco: No; Hx Alcohol Use: No Hx Substance Use: No Preferred Language: Telugu Communication Ability: Effective Permit Coordinator Required: No Beliefs That Will Affect Care: None marital status: Current Living Situation: Spouse Feels Safe at Home: Yes Assistive Devices: Cane and Walker Review of Systems Review of Systems: All systems reviewed & are unremarkable except as noted in HPI & below Physical Exam Physical Exam: Constitutional: WD/WN, vitals as above, NAD, sitting up in bed, pleasant, conversing easily Head: Normocephalic, Atraumatic Eyes: PERRL, conjunctivae normal, anicteric sclerae ENMT: external ear and nose normal, oropharynx normal Neck: trachea midline, no thyromegaly normal visual inspection Respiratory: normal respiratory effort, lungs clear to auscultation, no wheeze, rales, rhonchi. Normal insp/exp effort, no accessory muscle use Cardiovascular: normal s1/s2, no murmur, trace edema Vessels: no JVD or carotid bruit Chest: normal inspection of chest Abdomen: normal bowel sounds, soft, nontender, no hepatosplenomegaly Musculoskeletal: no cyanosis or clubbing, arom x 4 Skin: no rashes, warm and dry normal turgor Neurologic: PERRL, EOMI, accommodation nl, no face palsy, no dysarthria CN's II-XI intact bilaterally and moves all extremities Psychiatric: A+Ox3, euthymic affect Lymphatic: no cervical or axillary lymphadenopathy : deferred Results & Data Results & Data Vital Signs (Past 12 Hours) Vital Signs Temp Pulse Resp BP Pulse Ox O2 Del Method 08/14/23 14:18 36.5 C 72 18 136/62 97 Room Air Laboratory Results I have independently reviewed and interpreted patient's admitting labs including CBC, CMP, PTT, PT/INR, mag and troponin. Diagnostic Findings Head CT 08/14/23 14:58 CT OF THE HEAD WITHOUT CONTRAST CLINICAL HISTORY: neuro deficit, acute stroke suspected COMPARISON STUDY: MRI of the brain and head CT November 07, 2022. TECHNIQUE: Helical axial images of the head were obtained without IV contrast. Automated exposure control was utilized for the study. A dose lowering technique was utilized adhering to the principles of ALARA. FINDINGS: No acute intracranial hemorrhage, midline shift or mass effect is present. The ventricular system is stable. White matter hypodensities are unchanged and favor small vessel disease. The basal cisterns are patent. No extra-axial collections are present. There are no findings to suggest acute dural sinus thrombosis or acute territorial infarct. No significant calvarial abnormalities are present. Extensive sinus opacification is noted. This has progressed since exam of November 07, 2022. IMPRESSION: 1. No acute intracranial findings. No change in appearance of the brain. 2. Progression of extensive sinus opacification. ACT 112: Negative or not required by law. Electronically signed by: Otoniel Lemus M.D. 08/14/2023 3:33 PM Head CTA 08/14/23 14:58 CT angio head w con CLINICAL HISTORY: neuro deficit, acute stroke suspected TECHNIQUE: CT angiography of the head was performed following intravenous administration of iodinated contrast. Coronal and sagittal MIPS were obtained from the axial data set and were submitted for review. Automated dose lowering techniques and/or adjustment according to patient size were utilized for this examination. All measurements were calculated based on NASCET criteria. CT DOSE: 908.62 mGy.cm Comparison: None available at the time of this dictation. FINDINGS: CTA Head: The anterior and posterior cerebral circulations are patent. No hemodynamically significant stenosis, aneurysm, dissection, or arteriovenous malformation is shown. IMPRESSION: 1. No occlusion, hemodynamically significant stenosis, aneurysm, dissection, or arteriovenous malformation in the major intracranial arteries. Assessment of stenosis of the internal carotid arteries is based on NASCET criteria. ACT 112: Negative or not required by law. Electronically signed by: Christian Murray M.D. 08/14/2023 3:39 PM Neck CTA 08/14/23 14:58 CT ANGIOGRAPHY OF THE NECK WITH CONTRAST CLINICAL HISTORY: neuro deficit, acute stroke suspected COMPARISON STUDY: CTA of the neck November 07, 2022. Technique: CT angiography of the carotid and vertebral arteries was obtained using Optiray and 3D reconstruction on an independent workstation. NASCET criteria was utilized. Automated exposure control was utilized for the study. A dose lowering technique was utilized adhering to the principles of ALARA. Findings: Postoperative findings within the cervical spine are unchanged. There is no cervical lymphadenopathy. No cervical spine fractures are present. The bilateral common carotid, cervical internal carotid and vertebral arteries are patent. There is minimal noncalcified plaque within the proximal right internal carotid artery without stenosis. There is minimal plaque within the left carotid bifurcation without stenosis. There is no dissection or aneurysm within the major vessels of the neck. IMPRESSION: No stenosis or dissection within the bilateral common carotid, cervical internal carotid or vertebral arteries. ACT 112: Negative or not required by law. Electronically signed by: Otoniel Lemus M.D. 08/14/2023 3:40 PM Medications Administered Medication List Discontinued Medications Ioversol (Optiray 320 125ml) 118 ml IV ONCE ONE Stop: 08/14/23 15:16 Last Admin: 08/14/23 15:15 Dose: 118 ml Documented By: CANDICE ECG Additional Comments: I have independently reviewed and interpreted patient's admitting EKG which revealed: 60cpm, dual av paced rhythm qtc 494ms COVID-19 Results Results COVID-19 Adm Lab Results: RBC 3.16 M/uL (4.20-5.40) L 08/14/23 WBC 9.64 K/ul (4.8-10.8) 08/14/23 Hgb 9.6 g/dl (12.0-16.0) L 08/14/23 Hct 29.4 % (37.0-47.0) L 08/14/23 Plt Count 233 K/uL (130-400) 08/14/23 Neutrophils (%) (Auto) 70.4 % 08/14/23 Lymphocytes (%) (Auto) 13.1 % 08/14/23 Monocytes # (Auto) 0.72 K/uL (0.11-0.59) H 08/14/23 Eosinophils # (Auto) 0.76 K/uL (0.00-0.50) H 08/14/23 Immature Granulocyte % (Auto) 0.4 % 08/14/23 Neutrophils # (Auto) 6.79 K/uL (1.40-6.50) H 08/14/23 Lymphocytes # (Auto) 1.26 K/uL (1.20-3.40) 08/14/23 Monocytes # (Auto) 0.72 K/uL (0.11-0.59) H 08/14/23 Eosinophils # (Auto) 0.76 K/uL (0.00-0.50) H 08/14/23 Basophils # (Auto) 0.07 K/uL (0.00-0.20) 08/14/23 Immature Granulocyte # (Auto) 0.04 K/uL (0.01-0.20) 3 Na 138 mmol/L (136-145) 08/14/23 K 4.4 mmol/L (3.5-5.1) 08/14/23 Cl 105 mmol/L (98-107) 08/14/23 CO2 24 mmol/L (21-32) 08/14/23 Anion Gap 9 (3-11) 08/14/23 BUN 55 mg/dl (6-23) H 08/14/23 Creatinine 1.92 mg/dl (0.6-1.2) H 08/14/23 BUN/Creatinine Ratio 28.6 (10-20) H 08/14/23 Glucose Level 153 mg/dl (70-99(Fasting)) H 08/14/23 Ca 9.4 mg/dl (8.6-10.3) 08/14/23 Total Bilirubin 0.5 mg/dl (0.2-1.0) 08/14/23 AST/SGOT 48 U/L (13-39) H 08/14/23 ALT/SGPT 25 U/L (7-52) 08/14/23 Alkaline Phosphatase 176 U/L (34-104) H 08/14/23 Total Protein 7.3 gm/dl (6.0-8.3) 08/14/23 Albumin 4.3 gm/dl (3.4-5.0) 08/14/23 Globulin 3.0 gm/dl (2.5-4.0) 08/14/23 Albumin/Globulin Ratio 1.4 (0.9-2) 08/14/23 PTT 27 Seconds (21-31) 08/14/23 INR 1.0 (0.9-1.1) 08/14/23 Code Status & VTE Plan Code Status FULL CODE Supervising Physician Co-Signing Physician Notes I have seen and discussed the case with the collaborating DONALDO. I agree with the above H&P. I have reviewed and confirmed the patients medical history, the findings on physical examination, and the patients diagnosis and treatment plan with Yuval FULTON and agree with the information documented.
[2023-08-14] MEDS ORDERED: ACETAMINOPHEN 325 MG TAB PO PRN (18:36)
[2023-08-14] MEDS ORDERED: ALUMINUM/MAGNESIUM SUSP 30 ML UDC PO PRN (18:36)
[2023-08-14] MEDS ORDERED: MAGNESIUM HYDROXIDE SUSP 30 ML UDC PO PRN (18:36)
[2023-08-14] MEDS ORDERED: DEXTROSE 50% 50 ML SYRINGE IV PRN (18:36)
[2023-08-14] MEDS ORDERED: PHARMACIST DISCHARGE MED REC CONSULT PRN (18:36)
[2023-08-14] MEDS ORDERED: LORazepam 1 MG TAB PO PRN (18:36)
[2023-08-14] MEDS ORDERED: ONDANSETRON INJ 2 MG/ML 2 ML VIAL IV PRN (18:36)
[2023-08-14] MEDS ORDERED: GLUCOSE 40% GEL 15 GM TUBE PO PRN (18:36)
[2023-08-14] MEDS ORDERED: POLYETHYLENE (MIRALAX) 17 GM PACK PO PRN (18:36)
[2023-08-14] MEDS ORDERED: CARBOHYDRATES FOR HYPOGLYCEMIA PO PRN (18:36)
[2023-08-14] MEDS ORDERED: GLUCOSE 10 TAB/TUBE PO PRN (18:36)
[2023-08-14] MEDS ORDERED: GLUCAGON FOR INJ 1 MG VIAL SQ PRN (18:36)
[2023-08-14] MEDS ORDERED: LEVALBUTEROL TARTRATE 15 GM HFA.AER.AD INH PRN (18:36)
[2023-08-14] MEDS: SOTALOL HCL 80 MG TAB PO SCH (20:17)
[2023-08-14] MEDS: PANTOprazole 40 MG TAB PO SCH (20:18)
[2023-08-14] MEDS: INSULIN ASPART PER UNIT CHARGE SC SCH (20:40)
[2023-08-14] MEDS ORDERED: CLOPIDOGREL BISULFATE 75 MG TAB PO SCH (21:00)
[2023-08-14] MEDS ORDERED: ASPIRIN 81 MG ECTAB PO SCH (21:00)
[2023-08-14] MEDS ORDERED: allopurinoL 300 MG TAB PO SCH (21:00)
[2023-08-14] MEDS ORDERED: MONTELUKAST SODIUM 10 MG TABLET PO SCH (21:00)
--- OUTSIDE RECORDS SUMMARY | 2023-08-14 23:31 | External Medical Summary ---
Author Name Unknown Address Unknown Organization [id number]:[facility] [place] [address] Laboratory Report Ordering Provider Test Date Status VETOCORONA 08/13/2023 09:37:27 Final Observation Date Value Abnormality Reference (Units ) Status BUN 08/13/2023 09:37:27 57 Above high normal 6-20 (mg/dL) Final Creatinine 08/13/2023 09:37:27 1.9 Above high normal 0.5-1.0 (mg/dL) Final Glomerular filtration rate/1.73 sq M.predicted [Volume Rate/Area] in Serum, Plasma or Blood by Creatinine-based formula (CKD-EPI) 08/13/2023 09:37:27 27 Below low normal >=60 (mL/min) Final eGFR is calculated based on the CKD-EPI 2020 equation SODIUM 08/13/2023 09:37:27 139 135-146 (m mol/L) Final Potassium 08/13/2023 09:37:27 4.8 3.5-5.1 (m mol/L) Final Cl 08/13/2023 09:37:27 103 98-107 (mm ol/L) Final CO2 08/13/2023 09:37:27 25 22-32 (mmo l/L) Final Anion gap 08/13/2023 09:37:27 11 7-15 (mmol /L) Final Glucose 08/13/2023 09:37:27 132 Above high normal 70 -120 (mg/dL) Final Calcium 08/13/2023 09:37:27 9.5 8.4-10.2 ( mg/dL) Final Performing Location [facility] [place] [address]
--- OUTSIDE RECORDS SUMMARY | 2023-08-14 23:31 | External Medical Summary ---
Author Name Unknown Address Unknown Organization [id number]:[facility] [place] [place] [address] Laboratory Report Ordering Provider Test Date Status CJ LAWS 08/13/2023 09:37:27 Final Observation Date Value Abnormality Reference (Units ) Status Hemoglobin 08/13/2023 09:37:27 9.3 Below low normal 12 .0-15.3 (g/dL) Final Performing Location [facility] [place] [address]
--- OUTSIDE RECORDS SUMMARY | 2023-08-14 23:31 | External Medical Summary | Summary of Care ---
Author Name Unknown Organization [facility] Address [address] [place] [address] Phone [phone] Care Team Providers Care Customer Development Manager Name Role Phone Florentin Calvo DO Primary Care Provider [phone] Reason for Visit * Reason Onset Date Comments Insomnia 08/07/2023 Encounter Details Date Type Department Care Team (Late st Contact Info) Description 08/07/2023 Telephone Family Practice [facility] [place] [address] [place] [address] Florentin Calvo DO [address] [place] [address] Insomnia Allergies Active Allergy Reactions Criticality Noted Date Comments Azithromycin Other (Please comment) 12/04/2021 QTC prolongation at [facility] Celecoxib Hives,Rash High 03/24/2013 Other reaction(s): Rash/Hives/Itching. Cephalexin High 11/26/2021 Other reaction(s): Rash/Hives/Itching. Dexamethasone High 11/26/2021 Other reaction(s): Steroid psychosis. Furosemide High 11/26/2021 Other reaction(s): Rash/Hives/Itching. Gabapentin Hives,Rash High 03/24/2013 Other reaction(s): Rash/Hives/Itching. Other reaction(s): Rash/Hives/Itching. Meclizine Rash High 07/13/2013 Other reaction(s): Unknown Other reaction(s): Unknown Methylprednisolone Hives,Rash High 03/24/2013 Other reaction(s): Rash/Hives/Itching. Nickel 01/05/2016 Swelling Other reaction(s): Unknown Penicillins Hives,Rash High 03/24/2013 Other reaction(s): Unknown. Prednisone Hives,Rash High 03/24/2013 Other reaction(s): Rash/Hives/Itching. Pregabalin High 11/13/2020 Other reaction(s): Rash/Hives/Itching. Other reaction(s): Rash/Hives/Itching. Ranitidine Itching,Rash Medium 01/12/2018 Sulfa Antibiotics Hives,Rash High 03/24/2013 Other reaction(s): Severe rxn: rash and hives Other reaction(s): Severe rxn: rash and hives Vancomycin Hives,Rash High 03/24/2013 Other reaction(s): Jodi syn. . documented as of this encounter (statuses as of 08/07/2023) Medications Medication Sig Dispensed Refills Start Date End Date Status Physicians Reference LaboratoryTouch Verio w/Device KitIndications:Typ e 2 diabetes mellitus with hemoglobin A1c goal of less than 7.0% ([facility]) Use up to 1 times a day. E11.9 1 Kit 0 06/19/2021 Active Aspirin 81 MG Oral Tablet Delayed Release Take 1 Tablet by mouth daily. 0 Active Acetaminophen 325 MG Oral Tablet (Tylenol) Take 2 Tablets by mouth every 6 hours as needed. 100 Tablet 0 12/04/2021 Active Vitamin D3 50 MCG (2000 UT) Oral CapsuleIndications :Vitamin D deficiency Take 2 Capsules by mouth in the morning. 60 Capsule 5 04/04/2022 Active Levalbuterol Tartrate 45 MCG/ACT Inhalation Aerosol (Xopenex HFA)Indications:As thma with severity to be determined Inhale by mouth 1 Puff every 4 hours as needed for Wheezing. 15 g 12 06/13/2022 Active OneTouch Verio In Vitro Strip (Glucose Blood) Test blood sugars up to 2 times a day E11.9 200 Strip 3 12/20/2022 Active Vitamin B-12 100 MCG Oral Tablet (vitamin B-12) Take 1 Tablet by mouth in the morning. 30 Tablet 3 02/13/2023 Active Folic Acid 1 MG Oral TabletIndications: Chronic atrial fibrillation (HCC) TAKE ONE TABLET BY MOUTH EVERY MORNING 100 Tablet 1 02/03/2023 4 Active Montelukast Sodium 10 MG Oral Tablet (Singulair)Indicat ions:Moderate persistent asthma without complication TAKE ONE TABLET BY MOUTH AT BEDTIME 100 Tablet 3 08/05/2022 4 Active Torsemide 20 MG Oral Tablet (Demadex) Take 1 Tablet by mouth in the morning. 100 Tablet 3 03/17/2023 Active Sertraline HCl 100 MG Oral Tablet (Zoloft) Take one and one-half Tablets by mouth in the morning. 150 Tablet 1 03/17/2023 Active Ferrous Sulfate 325 (65 Fe) MG Oral Tablet (Feosol) Take 1 Tablet by mouth daily with breakfast. 100 Tablet 1 03/18/2023 Active Atorvastatin Calcium 20 MG Oral Tablet (Lipitor)Indicatio ns:PVD (peripheral vascular disease) ([facility]),Type 2 diabetes mellitus with stage 3a chronic kidney disease and hypertension ([facility]) TAKE ONE TABLET BY MOUTH EVERY DAY DIRECTED 100 Tablet 3 03/31/2023 Active Ipratropium [place] 0.03 % Nasal Solution (Atrovent)Indicati ons:Chronic rhinitis Administer 2 Sprays into nostril in the morning and 2 Sprays before bedtime. 90 mL 3 04/01/2023 Active Sotalol HCl 80 MG Oral Tablet (Betapace)Indicati ons:Paroxysmal atrial fibrillation (HCC) Take 0.5 Tablets by mouth in the morning and 0.5 Tablets before bedtime. 300 Tablet 3 04/10/2023 Active Pantoprazole Sodium 40 MG Oral Tablet Delayed Release (Protonix) Take 1 Tablet by mouth in the morning and 1 Tablet by mouth in the evening. 200 Tablet 1 05/05/2023 Active Allopurinol 300 MG Oral Tablet (Zyloprim) Take 1 Tablet by mouth at bedtime. 90 Tablet 3 05/16/2023 Active Tiotropium [place]-Olodaterol 2.5-2.5 MCG/ACT Inhalation Aerosol Solution (Stiolto Respimat) Inhale 2 Puffs by mouth in the morning. 12 g 3 05/23/2023 Active Levothyroxine Sodium 125 MCG Oral Tablet (Levoxyl) TAKE ONE TABLET BY MOUTH FIRST THING IN THE MORNING 100 Tablet 3 07/22/2023 4 Active Clopidogrel Bisulfate 75 MG Oral Tablet (pLAVix) Take 1 Tablet by mouth every evening. 30 Tablet 5 07/31/2023 Active LORazepam 1 MG Oral Tablet (Ativan)Indication s:Primary insomnia Take 1 Tablet by mouth at bedtime as needed for Sleep or Anxiety. 30 Tablet 0 08/07/2023 Active ALPRAZolam 0.5 MG Oral Tablet (xaNAX)Indications :Persistent insomnia,Anxiety Take one-half tablet by mouth as needed for anxiety and sleep as needed no more than two times a day 30 Tablet 0 08/01/2023 3 Discontinue d(Adverse reaction) Hospital, Clinic, or Other Facility Administered Medication Ordered Dose Route Frequency Start Date End Date Status Albuterol Sulfate (Proventil) (5 MG/ML) 0.5% *conc* inhalation solution 2.5 mgIndications:SOB (shortness of breath) 2.5 mg NEBULIZER PRN 10/29/2022 10/29/2023 Act akil Albuterol Sulfate (Proventil) (2.5 MG/3ML) 0.083% inhalation solution 2.5 mgIndications:SOB (shortness of breath) 2.5 mg NEBULIZER PRN 10/29/2022 10/29/2023 Act akil documented as of this encounter (statuses as of 08/07/2023) Active Problems Problem Noted Date Diagnosed Date Presence of Watchman left atrial appendage closu re device 07/31/2023 S/P mitral valve clip implantation 03/06/2023 Atherosclerosis of [place] 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 02/13/2023 Last Assessment & Plan: Continue statin, sotalol. ASA History of TIA (transient ischemic attack) 11/29 Last Assessment & Plan: -Recent admission to [facility], presented with numbness of tongue and slurred speech. Imaging was negative. Patient reports resolution without return of stroke like symptoms -Hospital discharge states patient would need Plavix x21 days. Does not have in home. Unclear if she would need this 2/2 cardiology initiating low dose Apixaban. -Has no follow up with neurology. Discussed with patient, she would like to think about if she wants to go or not, states she and her have "too many appointments" already. Advised she can discuss with G@ provider at next visit, she agreed. Severe tricuspid regurgitation 11/18/2022 Primary osteoarthritis of right knee 11/06/2022 Normocytic anemia 10/07/2022 History of endometrial cancer 09/18/2022 Cardiac pacemaker in situ 08/14/2022 Type 2 diabetes mellitus wit h stage 3b chronic kidney disease, without long-term current use of insulin 07/26/2022 Last Assessment & Plan: Current Status: "Stable" for patient / At or near baseline Degree of Condition Awareness: Demonstrates very good awareness of condition, disease course, and prognosis "RED FLAG" Diabetic symptoms: o none Goal HgbA1c o <7 Diabetic Complications o Vascular (examples: PVD, PAD, CAD, CVA) o Renal (example: CKD, Proteinuria, Dialysis) Medication Regimen o Lifestyle Modification / Monitoring ONLY DM Secondary Prevention o Moderate-High Intensity Statin, ASA Will likely start Jardiance after mitral valve replacement Chronic diastolic CHF (congestive heart failure) 07/25/2022 Last Assessment & Plan: Current Status: "Stable" for patient / At or near baseline Degree of Condition Awareness: Demonstrates very good awareness of condition, disease course, and prognosis "RED FLAG" HF Symptoms: o Leg Swelling (Examples: "I can't wear certain socks or shoes", "My pants feel tight") o Increased dyspnea on exertion (Example: "I can't walk to the kitchen or up the stairs") Current Heart Failure Classifications: o With less than ordinary activity ([facility] [place] [facility] CLASS III) Diagnostic Review: Recent Labs Units 02/05/23 0822 01/24/23 0946 12/06/22 1042 12/05/22 0929 LEFT VENTRICULAR EJECTION FRACTION % -- 55 -- -- BNP (NT-PRO-BNP) - [facility] pg/mL -- -- -- 9,451* ESTIMATED GLOMERULAR FILTRATION RATE - [facility] mL/min 32* -- < > 32* HGB - [facility] g/dL 10.7* -- < > -- < > = values in this interval not displayed. Medication Regimen: o Beta Graciela Therapy: Sotalol o YE Inhibitor/ARB Therapy: No YE/ARB/ARNI secondary to: low bp o Diuretic therapy: Torsemide Self - Management Plan o Double dose of Torsemide for 2 days Exacerbation Plan o BMP o Pro-BNP Notify cards, nephro or GAH prior to starting DTP PVD (peripheral vascular disease) 05/15/2022 Aneurysm of left carotid artery 12/04/2021 Aortic atherosclerosis 12/04/2021 Chronic kidney disease, stage 3b 12/03/2021 Overview: Per CKD protocol Last Assessment & Plan: GFR today 31. 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 and Advair Current moderate episode of major depressive disorder without prior episode 06/14/2019 Last Assessment & Plan: Stable -continue Zoloft, Xanax p.r.n. Pulmonary hypertension 04/02/2019 Type 2 diabetes mellitus with polyneuropathy Secondary hyperparathyroidism, renal 12/17/2018 Controlled substance agreement signed 11/26/2016 Acquired renal cyst 06/12/2016 Iron deficiency anemia 04/24/2016 Angiodysplasia of colon with hemorrhage 04/24/20 16 Tremor 09/21/2015 Paroxysmal atrial fibrillation 09/09/2014 Last Assessment & Plan: Rate controlled. 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 Meniere's disease 10/18/2013 Type 2 diabetes mellitus wit h hemoglobin A1c goal of less than 7.0% 03/24/2013 Overview: ICD-10 update of inactive term Last Assessment & Plan: Current Status: "Stable" for patient / At or near baseline Degree of Condition Awareness: Demonstrates very good awareness of condition, disease course, and prognosis "RED FLAG" Diabetic symptoms: o none Goal HgbA1c o <7 Diabetic Complications o Vascular (examples: PVD, PAD, CAD, CVA) Medication Regimen o SGLT (ex: Jardiance) DM Secondary Prevention o Moderate-High Intensity Statin o Aspirin Vertigo 03/24/2013 Spinal stenosis of lumbar re gion without neurogenic claudication 03/24/2013 Hypothyroidism 03/24/2013 Last Assessment & Plan: Continue Synthroid Displacement of cervical int ervertebral disc without myelopathy 03/24/2013 documented as of this encounter (statuses as of 08/07/2023) Resolved Problems Problem Noted Date Diagnosed Date Resolved Date Viral upper respiratory tract infection 11/29/2022 12/05/2022 Last Assessment & Plan: -Cough for a few days. Denies fever/chills. Exam benign. Likely viral. -Mucinex 1200mg BID ordered x7 days. -Instructed supportive care and to call @ if she feels she is worsening, not improving, or any other urgent, non-emergent concerns. Severe mitral valve regurgitation 10/30/2022 03/07/2023 Overview: Scheduled for MVR 03/06 Last Assessment & Plan: Talk of possible repair. We discussed with Cardiology. Anemia 07/26/2022 03/14/2023 Last Assessment & Plan: Last hemoglobin stable at 10.7. Has required multiple transfusions. -CBC scheduled for 02/21 -continue supplements Shortness of breath 07/26/2022 11/19/19 23 Last Assessment & Plan: Followed by cardiology--seen 07/02-zio unremarkable, echo with preserved systolic function, no valvular pathology. Referred to pulm, noted to consider sotalol has some beta graciela affects could be contributing. Sees pulm tomorrow. Has rescue inhaler. Allergies to steroids. Was on trelegy in the past. Will defer maintenance inhaler to pulm tomorrow. 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 02/24/2020 Overview: 01/25/2020: Renal osteodystrophy 09/21/2019 023 Status post placement of imp lantable loop recorder 04/02/2019 11/18/2022 Chronic atrial fibrillation 12/17/2018 06/12/2022 Hyperparathyroidism 05/20/2018 09/08/19 19 Type 2 DM with CKD stage 3 and hypertension 12/24/2017 01/04/2021 Overview: Per CKD protocol Elevated PTHrP level 08/20/2017 017 HTN, goal below 140/90 02/05/201604/18 Overview: Per HTN Protocol Atrial flutter 08/31/2014 02/24/2019 Kidney disease, chronic, sta ge III (GFR 30-59 ml/min) 10/18/2013 01/15/2018 Overview: Per CKD protocol #1 HTN, goal below 140/80 03/24/201302/07 Overview: Per HTN Protocol Asthma, moderate persistent 03/24/2013 09/21/2019 Depression 03/24/2013 05/31/2020 documented as of this encounter (statuses as of 08/07/2023) Immunizations Name Administration Dates Next Due COVID-19 mRNA, LNP-s, No Pre serve, 2-Dose Series (Moderna) 06/23/2021,10/25/2020,09/28/2020 COVID-19, LNP-s, No Preserve , Larry-sucrose, Ages 12+ (Pfizer) 04/09/2022 COVID-19, MRNA-LNP, 23-24, P F, 30 MCG/0.3 mL, 12 YRS AND ABOVE, IM (PFIZER-Comirnaty) 06/09/2023 Covid-19, Mrna, Lnp-s, Pf, B ivalent, 30 Mcg, IM, 12 yrs and above (Pfizer) 09/10/2022 HEP A - Hepatitis A (Adult > 18 yrs) 03/15/2004, 07/29/2003 Pneumococcal Conjugate Vacc, 13 Valent (Prevnar) 09/21/2015 Pneumococcal Polysaccharide PPV23 (Pneumovax) 05/25/2012,07/25/2007 RSV Vac., Bivalent, Perfusio n F, Pf,0.5 Ml (Abrysvo) 07/22/2023 Seasonal Influenza Virus Vac cine, Unspecified Formulation 05/22/2021 Seasonal Influenza, PF, 6 M & above, IM , (FluLaval or Fluzone) 04/28/2018,05/28/2017 Seasonal Influenza, Quadriva lent Hd (Fluzone Hd) 05/13/2023,05/15/2022 Seasonal Influenza, Quadriva lent Hd, 65+ Yrs 04/19/2020 Seasonal Influenza, Quadriva lent, No Preserve, IM 05/07/2016 Seasonal Influenza, Split, I IV3, With Preserve, Inj 04/26/2015,06/08/2014,05/15/2013,05/25,06/04/2011,05/28/2010,05/12/2009 ,05/25/2008 Seasonal Influenza, Trivalen t, Adjuvanted, 65+ yrs 05/06/2019 TDAP (age 10 and older)(Boostrix) 12/29/2018 TDAP (age 11 and older)(Adacel) 07/15/2009 Varicella Zoster Vaccine (Adult) 03/25/2007 Zoster Vaccine Recombinant (Shingrix) 07/16/2019 ,05/16/2019 documented as of this encounter Social History Tobacco Use Types Packs/Day Years Used Date Smoking Tobacco: Former Cigarettes 1.3 18 Q uit: 12/29/1978 Passive Smoke Exposure: Past Smokeless Tobacco: Never Alcohol Use Standard Drinks/Week Comments No 0 (1 standard drink = 0.6 oz pur e alcohol) PHQ-2 Answer Date Recorded PHQ Adult Total Score 0 05/23/2023 Hunger Vital Sign Answer Date Recorded Within the past 12 months, y ou worried that your food would run out before you got the money to buy more. Never true 05/23/20 23 Within the past 12 months, t he food you bought just didn't last and you didn't have money to get more. Never true 05/23/2023 Sex and Gender Information Value Date Recorded Sex Assigned at Female 12/17/2018 11:06 AM EDT Gender Identity Female 12/17/2018 11:06 AM EDT Sexual Orientation Not on file Job Start Date Occupation Industry Not on file Not on file Not on file documented as of this encounter Functional Status Functional Status Response Date of Assess ment Are you deaf or do you have serious difficulty hearing? No[place] can hear w/ hearing aid 03/07/2023 Are you blind or do you have serious difficulty seeing, even when wearing glasses? No 03/07/2023 Do you have serious difficul ty walking or climbing stairs? (5 years old or older) No 03/07/2023 Do you have difficulty dress ing or bathing? (5 years old or older) No 03/07/2023 Because of a physical, menta l, or emotional condition, do you have difficulty doing errands alone such as visiting a doctor s office or shopping? (15 years old or older) No 03/07/2023 Cognitive Status Response Date of Assessm ent Because of a physical, menta l, or emotional condition, do you have serious difficulty concentrating, remembering, or making decisions? (5 years old or older) No 03/07/2023 documented as of this encounter Miscellaneous Notes * Telephone Encounter - Florentin Calvo DO - 08/07/2023 4:28 PM EST I have reviewed the patients controlled substance dispensing history in the Prescription Drug Monitoring Program in compliance with the [facility] regulations before prescribing a controlled substance. Last Tox Screen Results: No results found. However, due to the size of the patient record, not all encounters were searched.Please check Results Review for a complete set of results. Will make medication changes. * Telephone Encounter - Veronique Batista RP - 08/07/2023 4:25 PM EST Spoke to patient - agreeable to trying lorazepam. Sent to PCP for approval. Veronique Patel, Pharm D, BCACP Clinical Pharmacist [address] [facility] 08/07/2023, 4:25 PM Ph. [phone] * Telephone Encounter - Florentin Calvo DO - 08/07/2023 4:18 PM EST See if patient will agree to changing Alprazolam to Lorazepam 1 mg before bed. * Telephone Encounter - Veronique Batista RP - 08/07/2023 4:04 PM EST Patient states she can't sleep lately. Has been taking 1/2 tablet of alprazolam nightly, but that doesn't cut it and a whole tablet leaves her zonked the next day. Asking Dr. Calvo what she should do. Could consider switching to shorter acting benzodiazepine without metabolite like lorazepam? Veronique Patel, Pharm D, BCACP Clinical Pharmacist [facility] - [facility] 08/07/2023, 4:06 PM Ph. [phone] documented in this encounter Plan of Treatment Upcoming Encounters Date Type Department Care Team (Late st Contact Info) Description 08/13/2023 8:40 AM EST Office Visit Nephrology, [facility] [address] [place] [address] Rosario Green MD [address] [facility] [place] [address] 08/22/2023 2:20 PM EST Office Visit Family Practice [address] [place] [address] [address] [facility] [place] [address] Florentin Calvo, DO [address] [place] [address] 09/02/2023 2:30 PM EST Home Visit [facility] [address] [facility] [place] [address] Michelle Hurt, RN [address] [facility] [place] [address] 09/11/2023 3:30 PM EST Office Visit Cardiology, [facility] [address] [facility] [place] [address] Stephen Hewitt, DO [address] [facility] [place] [address] 09/15/2023 8:00 AM EST Appointment Cardiac Studies [address] [address] 10/14/2023 2:30 PM EST Office Visit Hematology/Oncology [facility] [address] [facility] [address] Nereyda Metz, JESS [address] [facility] [place] [address] 10/24/2023 2:30 PM EST Office Visit Gynecology/Oncology, [place] [address] [place] [address] Vanessa Elena PA-C [address], [place] [id number] 01/21/2024 2:40 PM EDT Office Visit Otolaryngology [facility] [address] [facility] [place] [address] Cheri Castillo PA-C [address] [facility] [place] [address] 06/03/2024 2:15 PM EDT Office Visit Ophthalmology, [facility] [address] [facility] [place] [address] Wilbur Benavides, DO [address] [facility] [place] [address] 08/09/2024 1:00 PM EST Nurse Only Ancillary [address] [facility] [address] [facility] [place] [address] College, Nurse Annual Wellness Visit [address] [place] [address] Health Maintenance Due Date Last Done Comments Hepatitis B (1 of 3 - Risk 3-dose series) 2000 CKD PHOS USE SMARTSET 40124 05/01/202302/2022, 04/03/2022, 12/05/2020, Additional history exists HbA1c 08/23/2023 02/21/2023, 0 10/2022, 04/03/2022, Additional history exists TSH 09/24/2023 09/24/2022, 10/2022, 02/12/2022, Additional history exists Diabetic Foot Exam 10/01/2023 10/01/2022, 0 10/26/2021, 12/05/2020, Additional history exists GFR 01/30/2024 07/31/2023, 11/0 04/2023, 05/09/2023, Additional history exists Albumin/Creatinine Ratio 02/22/2024 023, 05/01/2022, 10/26/2021, Additional history exists Diabetic Eye Exam 05/22/2024 05/22/2023, , 05/22/2023, Additional history exists Depression Screening 05/23/2024 05/23/2023 CKD HGB USE SMARTSET 19605 07/31/202407/31, 07/31/2023, 07/24/2023, Additional history exists DXA Scan 05/07/2025 05/07/2021, 12/24, 04/12/2013, Additional history exists COLONOSCOPY-EVERY 4 YRS AGES 18-100 03/11/2026 03/11/2022, 11/10/2020, 11/10/2020, Additional history exists DTaP,Tdap,and Td Vaccines (3 - Td or Tdap) 12/29/2028 12/29/2018, 07/15/2009 Pneumococcal Vaccine: 65+ Years Completed 09/21/2015, 05/25/2012, 07/25/2007 Zoster Vaccines Completed 07/16/2019, 04/26, 03/25/2007 Influenza Vaccine (FLU shot) Completed , 05/15/2022, 05/22/2021, Additional history exists COVID-19 Vaccine Completed 06/09/2023, , 04/09/2022, Additional history exists GARDASIL-HPV IMMUNIZATION SERIES Aged Out No longer eligible based on patient's age to complete this topic MENINGOCOCCAL (MENACTRA/MENVEO) Aged Out No longer eligible based on patient's age to complete this topic documented as of this encounter Medical Devices Implanted Type Area Protection Specialist Device Identifier Shelf Expiration Date Model / Serial / Lot Cath Thermodilution 6fr - [id number] Implanted:Qty: 1 on 01/24/2023 [place] Wilbur Rivera [place] [facility] [place] [employer] [id number] 10/15/2024 [id number] / / [id number] Mirtaclip G4 - [id number] Implanted:Qty: 1 on 03/10/2023 [place] [facility] [place] [employer] 11/19/2023 [id number] / / [id number] Device Watchman Flx 31mm - [id number] Implanted:Qty: 1 on 07/31/2023 by Wilbur Rivera [place] [facility] [place] : INTRV CARD [id number] 12/02/2025 [id number] / [id number] documented as of this encounter Visit Diagnoses Diagnosis Primary insomnia- Primary Persistent disorder of initiating or maintaining sleep documented in this encounter Advance Directives Documents on File Type Date Recorded 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 Question Answer Comments Discussion of Advance Directives occurred with: Not Discussed due to patient's condition Does the patient have a Living Will? No Does the patient have Health Care Power of Casing Soaker? No Code Status History Code Status Date Activated Date Inactivated Comments No Code 03/06/2023 5:08 PM 03/07/2023 9:09 PM This order reflects the patients wishes and were consensually agreed upon. Question Answer Comments Discussion of Advance Directives occurred with: Patient Full Code 03/06/2023 11:16 AM 03/06/2023 5:08 PM This order reflects the patients wishes and were consensually agreed upon. Question Answer Comments Discussion of Advance Directives occurred with: Patient Full Code 01/24/2023 1:33 PM 01/25/2023 1:35 PM This or ernesto reflects the patients wishes and were consensually agreed upon. Question Answer Comments Discussion of Advance Directives occurred with: Not Discussed due to patient's condition Full Code 02/22/2020 8:58 AM 02/22/2020 4:47 PM This order reflects the patients wishes and were consensually agreed upon. Healthcare Agents on File Name Relationship Healthcare Agent Lorenzone josiah Communication Bright Barakat Adult Child Health Care Agen t (per Health Care Power of Casing Soaker document) Care Teams Customer Development Manager Relationship Specialty Start Date End Date Florentin Calvo DO [address] [facility] [place] [address] PCP - General Internal Medicine 03/24/13 documented as of this encounter
--- OUTSIDE RECORDS SUMMARY | 2023-08-14 23:31 | External Medical Summary | Summary of Care ---
Author Name Unknown Organization [facility] Address [address] [place] [address] Phone [phone] Care Team Providers Care Insurance Account Specialist Name Role Phone Florentin Calvo DO Primary Care Provider [phone] Reason for Visit * Reason Onset Date Comments Medication Problem 08/01/2023 Encounter Details Date Type Department Care Team (Late st Contact Info) Description 08/01/2023 Telephone Family Practice [address] [facility] [address] [place] [address] Florentin Calvo DO [address] [place] [address] Medication Problem (/) Allergies Active Allergy Reactions Criticality Noted Date Comments Azithromycin Other (Please comment) 12/04/2021 QTC prolongation at [facility] Celecoxib Hives,Rash High 03/24/2013 Other reaction(s): Rash/Hives/Itching. [...] as of this encounter (statuses as of 08/04/2023) Medications Medication Sig Dispensed Refills Start Date End Date Status SymvatoTouch Verio w/Device KitIndications:Type 2 diabetes mellitus with hemoglobin A1c goal of less than 7.0% ([facility]) Use up to 1 times a day. E11.9 1 Kit 0 06/19/2021 Active Aspirin 81 MG Oral Tablet Delayed Release Take 1 Tablet by mouth daily. 0 Active Acetaminophen 325 MG Oral Tablet (Tylenol) Take 2 Tablets by mouth every 6 hours as needed. 100 Tablet 0 12/04/2021 Active Vitamin D3 50 MCG (1999 [place]) Oral CapsuleIndications: Vitamin D deficiency Take 2 Capsules by mouth in the morning. 60 Capsule 5 04/04/2022 Active Levalbuterol Tartrate 45 MCG/ACT Inhalation Aerosol (Xopenex HFA)Indications:Ast hma with severity to be determined Inhale by [...] 02/13/2023 Active Folic Acid 1 MG Oral TabletIndications:C hronic atrial fibrillation (HCC) TAKE ONE TABLET BY MOUTH EVERY MORNING 100 Tablet 1 02/03/2023 02/03/2024 Active Montelukast Sodium 10 MG Oral Tablet (Singulair)Indicati ons:Moderate persistent asthma without complication TAKE ONE TABLET BY MOUTH AT BEDTIME 100 Tablet 3 08/05/2022 09/10/2023 Active Torsemide 20 MG Oral Tablet (Demadex) [...] Active Atorvastatin Calcium 20 MG Oral Tablet (Lipitor)Indication s:PVD (peripheral vascular disease) ([facility]),Type 2 diabetes mellitus with stage 3a chronic kidney disease and hypertension ([facility]) TAKE ONE TABLET BY MOUTH EVERY DAY DIRECTED 100 Tablet 3 03/31/2023 Active Ipratropium [place] 0.03 % Nasal Solution (Atrovent)Indicatio ns:Chronic rhinitis Administer 2 Sprays into nostril in the morning and 2 Sprays before bedtime. 90 mL 3 04/01/2023 Active Sotalol HCl 80 MG Oral Tablet (Betapace)Indicatio ns:Paroxysmal atrial fibrillation (HCC) Take 0.5 Tablets by [...] bedtime. 90 Tablet 3 05/16/2023 Active Tiotropium [place]-Olodaterol 2.5-2.5 MCG/ACT Inhalation Aerosol Solution (Stiolto Respimat) Inhale 2 Puffs by mouth in the morning. 12 g 3 05/23/2023 Active Levothyroxine Sodium 125 MCG Oral Tablet (Levoxyl) TAKE ONE TABLET BY MOUTH FIRST THING IN THE MORNING 100 Tablet 3 07/22/2023 07/21/2024 Active Clopidogrel Bisulfate 75 MG Oral Tablet (pLAVix) Take 1 Tablet by mouth every evening. 30 Tablet 5 07/31/2023 Active ALPRAZolam 0.5 MG Oral Tablet (xaNAX)Indications: Persistent insomnia,Anxiety Take one-half tablet by mouth as needed for anxiety and sleep as needed no more than two times a day 30 Tablet 0 08/01/2023 Active Hospital, Clinic, or Other Facility Administered Medication [...] as of this encounter (statuses as of 08/04/2023) Active Problems Problem Noted Date Diagnosed Date Presence of Watchman left atrial appendage closu re device 07/31/2023 S/P mitral valve clip implantation 03/06/2023 Atherosclerosis of [place] 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 02/13/2023 Last Assessment & Plan: Continue statin, sotalol. ASA History of TIA (transient ischemic attack) 11/29 Last Assessment & Plan: -Recent admission to [facility], presented with numbness of tongue and slurred [...] appointments" already. Advised she can discuss with [facility] provider at next visit, she agreed. 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 Denies fever/chills. Exam benign. Likely viral. -Mucinex 1200mg BID ordered x7 days. -Instructed supportive care and to call [facility] if she feels she is worsening, not [...] -continue supplements Shortness of breath 07/26/2022 11/19/19 Last Assessment & Plan: Followed by cardiology--seen [...] as of this encounter (statuses as of 08/04/2023) Immunizations Name Administration Dates Next Due COVID-19 mRNA, LNP-s, No Pre serve, 2-Dose Series (Moderna) 06/23/2021,10/25/2020,09/28/2020 COVID-19, LNP-s, No Preserve , Larry-sucrose, Ages 12+ (myinfoQ) 04/09/2022 COVID-19, MRNA-LNP, 23-24, P F, 30 MCG/0.3 mL, 12 YRS AND ABOVE, IM (Survmetrics-ComirnatAble Device) 06/09/2023 Covid-19, Mrna, Lnp-s, Pf, B ivalent, 30 Mcg, IM, 12 yrs and above (myinfoQ) 09/10/2022 HEP A - Hepatitis A (Adult > 18 yrs) 03/15/2004, 07/29/2003 Pneumococcal Conjugate Vacc, 13 Valent (Prevnar) 09/21/2015 Pneumococcal Polysaccharide PPV23 (Pneumovax) 05/25/2012,07/25/2007 RSV Vac., Bivalent, Perfusio n F, Pf,0.5 Ml (Abrysvo) 07/22/2023 SEASONAL INFLUENZA, PF, 6 M & Above, IM , (FLULAVAL or FLUZONE) 04/28/2018,05/28/2017 Seasonal Influenza Virus Vac cine, Unspecified Formulation 05/22/2021 Seasonal Influenza, Quadriva lent Hd (Fluzone Hd) [...] or do you have serious difficulty hearing? No-[place] can hear w/ hearing aid 03/07/2023 Are [...] encounter Miscellaneous Notes * Telephone Encounter - Grace Jeffries OSA - 08/04/2023 3:24 PM EST Meter picked up by aleida Novoa * Telephone Encounter - Veronique Batista RPh - 08/04/2023 8:14 AM EST Called patient and let her know I'd leave a meter at it desktop support technician to pick up driver anytime. Veronique Patel, Pharm D, BCACP Clinical Pharmacist [facility] 08/04/2023, 8:16 AM Ph. [phone] * Telephone Encounter - Hilda Elizabeth RN - 08/01/2023 4:14 PM EST Spoke with pt in regards to medication clarification-see other encounter. Pt states she wanted to let Veronique in pharmacy know that her glucometer One Touch Verio keeps going to error. States she had let [facility] know and they were going to reach out to Veronique also. Told her Veroniquenot in office today but would be back on Friday. documented in this encounter Plan of Treatment Upcoming Encounters Date Type Department Care Team (Late st Contact Info) Description 08/13/2023 8:40 AM EST Office Visit [place]Jerri [address] [place] [address] Rosario Green MD [address] [place] [address] 08/22/2023 2:20 PM EST Office Visit Family Practice [address] [facility] [address] [facility] [address] Florentin Calvo, DO [address] [place] [address] 09/02/2023 2:30 PM EST [facility] 132 [place] [address] Michelle Hurt, RN [address] [place] [address] 09/15/2023 8:00 AM EST Appointment Cardiac Studies [facility], [place] [address] [place] [address] 09/22/2023 3:00 PM EST Office Visit Cardiology, [facility] 132 [place] [address] Stephen Hewitt, 132 [facility] [place] [address] 10/14/2023 2:30 PM EST Office Visit Hematology/Oncology [facility] 200 [facility] [place] [place] [address] Nereyda Metz CRNP [address] [place] [address] 10/24/2023 2:30 PM EST Office Visit Gynecology/Oncology, [place] [address] [place] [address] Vanessa Elena PA-C [address] [place] [address] 01/21/2024 2:40 PM EDT Office Visit Otolaryngology [facility] 132 [facility] [place] [address] Cheri Castillo PA-C 132 [facility] [place] [address] 06/03/2024 2:15 PM EDT Office Visit Ophthalmology, [facility] [address] [place] [address] Wilbur Benavides, DO 21 [facility] [place] [address] Health Maintenance Due Date Last Done Comments Hepatitis B (1 of 3 - Risk 3-dose series) 2000 CKD PHOS USE SMARTSET 74749 05/01/2023 09/0 02/2022, 04/03/2022, 12/05/2020, Additional history exists HbA1c 08/23/2023 02/21/2023, 0 10/2022, 04/03/2022, Additional history exists TSH 09/24/2023 09/24/2022, 0 10/2022, 02/12/2022, Additional history exists Diabetic Foot Exam 10/01/2023 10/01/2022, 0 10/26/2021, 12/05/2020, Additional history exists GFR 01/30/2024 07/31/2023, 110 04/2023, 05/09/2023, Additional history exists Albumin/Creatinine Ratio 02/22/2024 023, 05/01/2022, 10/26/2021, Additional history exists Diabetic Eye Exam 05/22/2024 05/22/2023, , 05/22/2023, Additional history exists Depression Screening 05/23/2024 05/23/2023 CKD HGB USE SMARTSET 32414 07/31/202407/31, 07/31/2023, 07/24/2023, Additional history exists DXA [...] this encounter Medical Devices Implanted Type Area B2B Sales Consultant Device Identifier Shelf Expiration Date Model / Serial / Lot Cath Thermodilution 6fr - [id number] Implanted:Qty: 1 on 01/24/2023 by Wilbur Rivera MD at [facility] [place] [employer] TERE [id number] 10/15/2024 [id number] / / [id number] Mirtaclip G4 - [id number] Implanted:Qty: 1 on 03/10/2023 at [facility] [place] [employer] 11/19/2023 [id number] / / [id number] Device Watchman Flx 31mm - [id number] Implanted:Qty: 1 on 07/31/2023 by Wilbur Rivera MD at [facility] [place] [employer] : INTRV CARD [id number] 12/02/2025 [id number] documented as of this encounter Visit Diagnoses Diagnosis Type 2 diabetes mellitus with hemoglobin A1c goal of less than 7.0% (HCC)- Primary Type 2 diabetes mellitus with polyneuropathy (HCC) Type II or unspecified type diabetes mellitus with neurological manifestations, not stated as uncontrolled documented in this encounter Advance Directives Documents on File Type Date Recorded Patient Sprue Knocker Expl anation Advance Directives and Living Will 11/29/2022 ADVANCE DIRECTIVE / LIVING WILL Power of Mechanical Repair Worker 11/29/2022 POWER OF A TTORNEY Advance Directives and Living Will 10/24/2014 ADVANCE DIRECTIVE / LIVING WILL Power of Mechanical Repair Worker 10/24/2014 POWER OF A TTORNEY Latest Code [...] the patient have Health Care Power of Mechanical Repair Worker? No Code Status History Code Status Date [...] Agents on File Name Relationship Healthcare Agent [facility] Communication Bright Barakat Adult Child Health Care Agen t (per Health Care Power of Mechanical Repair Worker document) Care Teams Insurance Account Specialist Relationship Specialty Start Date End Date Florentin Calvo DO [address] [place] [address] PCP - General Internal Medicine 03/24/13 documented as of this encounter
--- OUTSIDE RECORDS SUMMARY | 2023-08-14 23:31 | External Medical Summary | Summary of Care ---
Author Name Unknown Organization [facility] Address [address] [place] [address] Phone [phone] Care Team Providers Care Executive Team Leader Name Role Phone Florentin Calvo DO Primary Care Provider [phone] Reason for Visit * Reason Comments Outpatient Testing Encounter Details Date Type Department Care Team (Late st Contact Info) Description 08/13/2023 9:40 AM EST Laboratory [facility] [place] [facility] [address] [place] [address] [facility] Lab Scenery [address] [place] [address] Iron deficiency anemia due to chronic blood loss; Stage 3b chronic kidney disease (HCC) Allergies Active Allergy Reactions Criticality Noted Date Comments Azithromycin Other (Please comment) 12/04/2021 QTC prolongation at [facility] Celecoxib Hives,Rash High 03/24/2013 Other reaction(s): Rash/Hives/Itching. [...] as of this encounter (statuses as of 08/13/2023) Medications Medication Sig Dispensed Refills Start Date End Date Status [place] ResourcesTouch Verio w/Device KitIndications:Type 2 diabetes mellitus with hemoglobin A1c goal of less than 7.0% ([facility]) Use up to 1 times a day. [...] Oral Tablet (Lipitor)Indication s:PVD (peripheral vascular disease) ([facility]),Type 2 diabetes mellitus with stage 3a chronic kidney disease and hypertension ([facility]) TAKE ONE TABLET BY MOUTH EVERY DAY DIRECTED 100 Tablet 3 03/31/2023 Active Ipratropium [place] 0.03 % Nasal Solution (Atrovent)Indicatio ns:Chronic rhinitis [...] bedtime. 90 Tablet 3 05/16/2023 Active Tiotropium [place]-Olodaterol 2.5-2.5 MCG/ACT Inhalation Aerosol Solution (Stiolto Respimat) [...] 07/31/2023 Active LORazepam 1 MG Oral Tablet (Ativan)Indications :Primary insomnia Take 1 Tablet by mouth at bedtime as needed for Sleep or Anxiety. 30 Tablet 0 08/07/2023 Active Hospital, Clinic, or Other Facility Administered [...] as of this encounter (statuses as of 08/13/2023) Active Problems Problem Noted Date Diagnosed Date Presence of Watchman left atrial appendage closu re device 07/31/2023 S/P mitral valve clip implantation 03/06/2023 Atherosclerosis of [place] 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 02/13/2023 Last Assessment & Plan: Continue statin, sotalol. 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: Now just using [...] as of this encounter (statuses as of 08/13/2023) Resolved Problems Problem Noted Date Diagnosed Date [...] as of this encounter (statuses as of 08/13/2023) Immunizations Name Administration Dates Next Due COVID-19 mRNA, LNP-s, No Pre serve, 2-Dose Series (Moderna) 06/23/2021,10/25/2020,09/28/2020 COVID-19, LNP-s, No Preserve , Larry-sucrose, Ages 12+ (Pfizer) 04/09/2022 COVID-19, MRNA-LNP, 23-24, P F, 30 MCG/0.3 mL, 12 YRS AND ABOVE, IM ([employer]-Comirnat) 06/09/2023 Covid-19, Mrna, Lnp-s, Pf, B ivalent, 30 Mcg, IM, 12 yrs and above (Pathogenetix) 09/10/2022 HEP A - Hepatitis A (Adult [...] or do you have serious difficulty hearing? No-[place] can hear w/ hearing aid 03/07/2023 Are [...] No 03/07/2023 documented as of this encounter Plan of Treatment Upcoming Encounters Date Type Department Care Team (Late st Contact Info) Description 08/22/2023 2:20 PM EST Office Visit Family Practice [address] [place] [address], Shock [address] [facility], [place] [address] Florentin Calvo, DO 293 [facility], [place] [address] 09/02/2023 2:30 PM EST [facility] 132 [facility] [place] [address] Michelle Hurt, RN 132 [facility] [place] [address] 09/11/2023 3:30 PM EST Office Visit Cardiology, [facility] 132 [facility] [place] [address] Stephen Hewitt, DO 132 [facility] [place] [address] 09/15/2023 8:00 AM EST Appointment [facility], [address] [address] 10/14/2023 2:30 PM EST Office Visit Hematology/Oncology [facility] 200 [facility], [place] [address] Nereyda Metz CRNP 400 [facility] [place] [address] 10/24/2023 2:30 PM EST Office Visit Gynecology/Oncology, [place] [address] [place] [address] Vanessa Elena PA-C [address] [facility] [place] [address] 01/21/2024 2:40 PM EDT Office Visit Otolaryngology [facility] [address] [facility] [place] [address] Cheri Castillo PA-C 132 [facility] [place] [address] 02/17/2024 3:30 PM EDT Office Visit Nephrology, [facility] 200 [facility], [place] [address] Michelle Ivy PA-C 200 [facility] [place] [address] 06/03/2024 2:15 PM EDT Office Visit Ophthalmology, [facility] 132 [facility] [place] [address] Wilbur Benavides, DO [facility] [place] [address] 08/09/2024 1:00 PM EST Nurse Only Ancillary 65 [facility] 293 [facility], [place] [address] College, Nurse Annual Wellness Visit [address] [place] [address] Pending Results Name Type Priority Associated Diagnoses Date /Time BASIC METABOLIC PANEL Lab Routine Stage 3b chronic kidney disease (HCC) 08/13/2023 9:37 AM EST Health Maintenance Due Date Last Done Comments Hepatitis B (1 of 3 - Risk 3-dose series) 2000 CKD PHOS USE SMARTSET 27912 05/01/20230 02/2022, 04/03/2022, 12/05/2020, Additional history exists HbA1c [...] Screening 05/23/2024 05/23/2023 CKD HGB USE SMARTSET 08196 07/31/202408/13, 07/31/2023, 07/31/2023, Additional history exists DXA Scan 05/07/2025 05/07/2021, [...] this encounter Medical Devices Implanted Type Area Sealer Operator Device Identifier Shelf Expiration Date Model / Serial / Lot Cath Thermodilution 6fr - [id number] Implanted:Qty: 1 on 01/24/2023 by Wilbur Rivera MD at [facility] [place] [employer] TERE [id number] 10/15/2024 [id number] / / [id number] Mirtaclip G4 - [id number] Implanted:Qty: 1 on 03/10/2023 at [facility] [place] [employer] 11/19/2023 [id number] / / [id number] Device Watchman Flx 31mm - [id number] Implanted:Qty: 1 on 07/31/2023 by Wilbur Rivera MD at [facility] [place] [employer] : INTRV CARD [id number] 12/02/2025 [id number] / [id number] documented as of this encounter Procedures Procedure Name Priority Date/Time Associated Diagnosis Comments HGB Routine 08/13/2023 9:37 AM EST Iron deficiency anemia due to chronic blood loss documented in this encounter Results * (ABNORMAL) HGB (08/13/2023 9:37 AM EST) HGB 9.3(L) 12.0 - 15.3 g/dL 08/13/2023 9:51 AM EST [facility] 56-02 Blood Venous blood specimen / Unknown Venipuncture / Unknown 08/13/2023 9:37 AM EST 08/13/2023 9:37 AM EST Rosario Green MD LAB BLOOD ORDERAB LES [facility] 56-[address] [place] [address] documented in this encounter Visit Diagnoses Diagnosis Iron deficiency anemia due to chronic blood loss Iron deficiency anemia secondary to blood loss (chronic) Stage 3b chronic kidney disease (HCC) documented in this encounter Advance Directives Documents on File Type Date Recorded Patient Scrap Hooker Expl anation Advance Directives and Living Will 11/29/2022 ADVANCE DIRECTIVE / LIVING WILL Power of Take Down Inspector 11/29/2022 POWER OF A TTORNEY Advance Directives and Living Will 10/24/2014 ADVANCE DIRECTIVE / LIVING WILL Power of Take Down Inspector 10/24/2014 POWER OF A TTORNEY Latest Code [...] the patient have Health Care Power of Take Down Inspector? No Code Status History Code Status Date [...] 1:33 PM 01/25/2023 1:35 PM This or ernetso reflects the patients wishes and were consensually agreed upon. Question Answer Comments Discussion of Advance Directives occurred with: Not Discussed due to patient's condition Full Code 02/22/2020 8:58 AM 02/22/2020 4:47 PM This order reflects the patients wishes and were consensually agreed upon. Healthcare Agents on File Name Relationship Healthcare Agent [facility] Communication Bright Barakat Adult Child Health Care Agen t (per Health Care Power of Take Down Inspector document) Care Teams Executive Team Leader Relationship Specialty Start Date End Date Florentin Calvo DO [address] [place] [address] PCP - General Internal Medicine 03/24/13 documented as of this encounter
--- OUTSIDE RECORDS SUMMARY | 2023-08-14 23:31 | External Medical Summary | Summary of Care ---
Author Name Unknown Organization [facility] Address [address] [place] [address] Phone [phone] Care Team Providers Care Storage Battery Inspector Name Role Phone Florentin Calvo DO Primary Care Provider [phone] Encounter Details Date Type Department Care Team (Late st Contact Info) Description 08/05/2023 Telephone Cardiology, [facility] [address] [facility] [address] Emelina Aden CRNP [address] [facility] [address] Allergies Active Allergy Reactions Criticality Noted Date Comments Azithromycin Other (Please comment) 12/04/2021 QTC prolongation at [facility] Celecoxib Hives,Rash High 03/24/2013 Other reaction(s): Rash/Hives/Itching. [...] as of this encounter (statuses as of 08/05/2023) Medications Medication Sig Dispensed Refills Start Date End Date Status Post-A-VoxTouch Verio w/Device KitIndications:Type 2 diabetes mellitus with hemoglobin A1c goal of less than 7.0% ([facility]) Use up to 1 times a day. E11.9 1 Kit 0 06/19/2021 Active Aspirin 81 MG Oral Tablet Delayed Release Take 1 Tablet by mouth daily. 0 Active Acetaminophen 325 MG Oral Tablet (Tylenol) Take 2 Tablets by mouth every 6 hours as needed. 100 Tablet 0 12/04/2021 Active Vitamin D3 50 MCG (2000 UT) Oral CapsuleIndications: Vitamin D deficiency Take [...] Oral Tablet (Lipitor)Indication s:PVD (peripheral vascular disease) ([facility]),Type 2 diabetes mellitus with stage 3a chronic kidney disease and hypertension ([facility]) TAKE ONE TABLET BY MOUTH EVERY DAY DIRECTED 100 Tablet 3 03/31/2023 Active Ipratropium [place] 0.03 % Nasal Solution (Atrovent)Indicatio ns:Chronic rhinitis [...] bedtime. 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 ASA History of TIA (transient ischemic attack) 11/29 Last Assessment & Plan: -Recent admission to [facility], presented with numbness of tongue and slurred [...] Obstructive sleep apnea of adult 09/09/2014 Overview: DIRECTOR TALENT ACQUISITION Last Assessment & Plan: Now just using [...] as of this encounter (statuses as of 08/05/2023) Resolved Problems Problem Noted Date Diagnosed Date [...] as of this encounter (statuses as of 08/05/2023) Immunizations Name Administration Dates Next Due COVID-19 mRNA, LNP-s, No Pre serve, 2-Dose Series (Moderna) 06/23/2021,10/25/2020,09/28/2020 COVID-19, LNP-s, No Preserve , Larry-sucrose, Ages 12+ (Pfizer) 04/09/2022 COVID-19, MRNA-LNP, 23-24, P F, 30 MCG/0.3 mL, 12 YRS AND ABOVE, IM ([facility]) 06/09/2023 Covid-19, Mrna, Lnp-s, Pf, B ivalent, 30 Mcg, IM, 12 yrs and above ([employer]ria[employer]) 09/10/2022 HEP A - Hepatitis A (Adult [...] or do you have serious difficulty hearing? No-GALENA can hear w/ hearing aid 03/07/2023 Are [...] encounter Miscellaneous Notes * Telephone Encounter - Keiko, Emelina Jacqueline, PREP PERSON - 08/05/2023 7:19 AM EST ----- Message from Wilbur Rivera MD sent at 08/04/2023 4:40 PM EST ----- Los, I had the pleasure of taking care of this patient who underwent a Watchman implantation with me last week. As you may remember this is a patient with paroxysmal atrial fibrillation who has experienced bleeding episodes on anticoagulants. After discussion with the patient, she was felt to be a great candidate for Watchman implantation. The procedure was performed under general anesthesia with the guidance of transesophageal echocardiogram. Using the transfemoral approach, we implanted a 31 mm watchman FL X device with complete exclusion of flow into the left atrial appendage. We deemed this to be a technically excellent result. There were no immediately apparent postprocedure complications. She obtained an echocardiogram later that day which confirmed lack of any significant complications. She was subsequently discharged home. We have elected to keep her on dual antiplatelet therapy given her significant bleeding with anticoagulation. We have also organised transesophageal echocardiogram after 45 days to ensure adequate closure of the appendage. Thank you very much for the referral. Please do not hesitate to reach out to me with any questions. Wilbur Rivera MD MPH Interventional Cardiology Pager: [phone] 08/04/23 4:42 PM documented in this encounter Plan of Treatment Upcoming Encounters Date Type Department Care Team (Late st Contact Info) Description 08/13/2023 8:40 AM EST Office Visit [facility] [address] [facility] [place] [address] Rosario Green MD [address] [facility] [place] [address] 08/22/2023 2:20 PM EST Office Visit Family Practice [address] [facility] [place] [address] [facility] [phone] Florentin Calvo [facility] [address] [facility] [address] 09/02/2023 2:30 PM EST Home Visit [facility], [facility] [address] [facility] [place] [address] Michelle Hurt, RN [address] [facility] [place] [address] 09/15/2023 8:00 AM EST Appointment Cardiac Studies [facility], [place] [address] [place] [address] 09/22/2023 3:00 PM EST Office Visit Cardiology, [facility] [address] [facility] [place] [address] Stephen Hewitt DO [address] [facility] [place] [address] 10/14/2023 2:30 PM EST Office Visit Hematology/Oncology [facility] [address] [place] [address] Nereyda Metz CRNP [address] [place] [address] 10/24/2023 2:30 PM EST Office Visit Gynecology/Oncology, [place] [address] [place] [address] Vanessa Elena PA-C [address] [place] [address] 01/21/2024 2:40 PM EDT Office Visit Otolaryngology [facility] [address] [facility] [place] [address] Cheri Castillo PA-C [address] [facility] [place] [address] 06/03/2024 2:15 PM EDT Office Visit Ophthalmology, [facility] [address] [facility] [place] [address] Wilbur Benavides, DO [address] [facility] [address] [place] [address] Health Maintenance Due Date Last Done Comments Hepatitis B (1 of 3 - Risk 3-dose series) 2000 CKD PHOS USE SMARTSET 96006 05/01/2023 09/0 02/2022, 04/03/2022, 12/05/2020, Additional history exists HbA1c 08/23/2023 02/21/2023, 01/0 10/2022, 04/03/2022, Additional history exists TSH 09/24/2023 09/24/2022, 0 10/2022, 02/12/2022, Additional history exists Diabetic Foot Exam 10/01/2023 10/01/2022, 0 10/26/2021, 12/05/2020, Additional history exists GFR 01/30/2024 07/31/2023, 1104/2023, 05/09/2023, Additional history exists Albumin/Creatinine Ratio 02/22/2024 023, 05/01/2022, 10/26/2021, Additional history exists Diabetic Eye Exam 05/22/2024 05/22/2023, , 05/22/2023, Additional history exists Depression Screening 05/23/2024 05/23/2023 CKD HGB USE SMARTSET 72676 07/31/202407/31, 07/31/2023, 07/24/2023, Additional history exists DXA [...] this encounter Medical Devices Implanted Type Area Logging Engineer Device Identifier Shelf Expiration Date Model / Serial / Lot Cath Thermodilution 6fr - [id number] Implanted:Qty: 1 on 01/24/2023 by Wilbur Rivera MD at [facility] [employer] [id number] 10/15/2024 [id number] / / [id number] [employer] G4 - [id number] Implanted:Qty: 1 on 03/10/2023 at [facility] [employer] 11/19/2023 [id number] / / [id number] Device Watchman Flx 31mm - [id number] Implanted:Qty: 1 on 07/31/2023 by Wilbur Rivera MD at [facility] [employer] : INTRV CARD [id number] 12/02/2025 [id number] documented as of this encounter Advance Directives Documents on File Type Date Recorded Patient Market Relationship Manager Expl anation Advance Directives and Living Will 11/29/2022 ADVANCE DIRECTIVE / LIVING WILL Power of Exercise Physiology Professor 11/29/2022 POWER OF A TTORNEY Advance Directives and Living Will 10/24/2014 ADVANCE DIRECTIVE / LIVING WILL Power of Exercise Physiology Professor 10/24/2014 POWER OF A TTORNEY Latest Code [...] the patient have Health Care Power of Exercise Physiology Professor? No Code Status History Code Status Date [...] Agents on File Name Relationship Healthcare Agent [facility] Communication [facility] Adult Child Health Care Agen t (per Health Care Power of Exercise Physiology Professor document) Care Teams Storage Battery Inspector Relationship Specialty Start Date End Date Florentin Calvo DO [address] [place] [address] PCP - General Internal Medicine 03/24/13 documented as of this encounter
--- OUTSIDE RECORDS SUMMARY | 2023-08-14 23:32 | External Medical Summary | Summary of Care ---
Author Name Unknown Organization [facility] Address [address] [place] [address] Phone [phone] Care Team Providers Care Wrapper Layer Name Role Phone Florentin Calvo DO Primary Care Provider [phone] Reason for Referral * Precert (Within 10 days (routine)) - Authorized Specialty Diagnoses / Procedures Referred By Danny mcdowell Referred To Contact Cardiac Studies Diagnoses Presence of Watchman left atrial appendage closure device Procedures TRANSESOPHAGEAL ECHO (COMPLETE) Pedro Ruiz DNP [address] [place] [address] Referral ID Status Reason Start Date Expiration Date V isits Requested Visits Authorized [id number] Authorized Precert 09/15/2023 999 999 Reason for Visit * Auth/Cert Specialty Diagnoses / Procedures Referred By Danny mcdowell Referred To Contact Diagnoses Paroxysmal atrial fibrillation (HCC) Paroxysmal atrial fibrillation (HCC) [I48.0] Procedures PERC CLOSURE TRANSCATH LEFT ATRIAL APPENDAGE W/ENDOCARDIAL IMPLANT PERCUTANEOUS CLOSURE LEFT ATRIAL APPENDAGE IMPLANT Referral ID Status Reason Start Date Expiration Date Visits Re quested Visits Authorized [id number] Encounter Details Date Type Department Care Team (Latest Contact Info) Description 07/31/2023 5:54 AM EST - 07/31/2023 5:30 PM EST Hospital Encounter [facility], Cardiac Recovery Suite Waiting Unit, [address] [place] [address] Wilbur Rivera MD [address], [place] [id number] Discharge Disposition: Home - Self Care Allergies Active Allergy Reactions Criticality Noted Date Comments Azithromycin Other (Please comment) 12/04/2021 QTC prolongation at [facility] Celecoxib Hives,Rash High 03/24/2013 Other reaction(s): Rash/Hives/Itching. [...] as of this encounter (statuses as of 08/01/2023) Medications Medication Sig Dispensed Refills Start Date End Date Status OneTouch Verio w/Device KitIndications:Ty pe 2 diabetes mellitus with hemoglobin A1c goal of less than 7.0% ([facility]) Use up to 1 times a day. E11.9 1 Kit 0 06/19/2021 Active Aspirin 81 MG Oral Tablet Delayed Release Take 1 Tablet by mouth daily. 0 Active Acetaminophen 325 MG Oral Tablet (Tylenol) Take 2 Tablets by mouth every 6 hours as needed. 100 Tablet 0 12/04/2021 Active Vitamin D3 50 MCG (2000 UT) Oral CapsuleIndication s:Vitamin D deficiency Take 2 Capsules by mouth in the morning. 60 Capsule 5 04/04/2022 Active Levalbuterol Tartrate 45 MCG/ACT Inhalation Aerosol (Xopenex HFA)Indications:A sthma with severity to be determined Inhale by [...] 02/13/2023 Active Folic Acid 1 MG Oral TabletIndications :Chronic atrial fibrillation ([facility]) TAKE ONE TABLET BY MOUTH EVERY MORNING 100 Tablet 1 02/03/2023 4 Active Montelukast Sodium 10 MG Oral Tablet (Singulair)Indica tions:Moderate persistent asthma without complication TAKE ONE TABLET [...] Active Atorvastatin Calcium 20 MG Oral Tablet (Lipitor)Indicati ons:PVD (peripheral vascular disease) ([facility]),Type 2 diabetes mellitus with stage 3a chronic kidney disease and hypertension ([facility]) TAKE ONE TABLET BY MOUTH EVERY DAY DIRECTED 100 Tablet 3 03/31/2023 Active Ipratropium [place] 0.03 % Nasal Solution (Atrovent)Indicat ions:Chronic rhinitis Administer 2 Sprays into nostril in the morning and 2 Sprays before bedtime. 90 mL 3 04/01/2023 Active Sotalol HCl 80 MG Oral Tablet (Betapace)Indicat ions:Paroxysmal atrial fibrillation (HCC) Take 0.5 Tablets by mouth in the morning and 0.5 Tablets before bedtime. 300 Tablet 3 04/10/2023 Active Clopidogrel Bisulfate 75 MG Oral Tablet (pLAVix) Take 1 Tablet by mouth every evening. 30 Tablet 5 07/31/2023 Active ALPRAZolam 0.5 MG Oral Tablet (xaNAX)Indication s:Persistent insomnia,Anxiety TAKE ONE TABLET BY MOUTH AT BEDTIME NEEDED FOR SLEEP OR ANXIETY USES HALF OF A TABLET NEEDED FOR ANXIETY AND SLEEP 90 Tablet 0 01/17/2023 3 Discontinued OneTouch Delica Plus Pvigut29N USE 2 TIMES A DAY DIRECTED 200 Each 3 04/30/2022 3 Discontinued documented as of this encounter (statuses as of 08/01/2023) Active Problems Problem Noted Date Diagnosed Date Presence of Watchman left atrial appendage closu re device 07/31/2023 S/P mitral valve clip implantation 03/06/2023 Atherosclerosis of jena 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 02/13/2023 Last Assessment & Plan: Continue statin, sotalol. 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 Last Assessment & Plan: Now just using [...] as of this encounter (statuses as of 08/01/2023) Resolved Problems Problem Noted Date Diagnosed Date [...] Overview: Per CKD protocol Endometrial cancer 02/22/2020 Cancer Staging:Clinical stage from 02/22/2020:FIGO Stage IA(cT1a, [...] as of this encounter (statuses as of 08/01/2023) Immunizations Name Administration Dates Next Due COVID-19 mRNA, LNP-s, No Pre serve, 2-Dose Series (Moderna) 06/23/2021,10/25/2020,09/28/2020 COVID-19, LNP-s, No Preserve , Larry-sucrose, Ages 12+ (Pfizer) 04/09/2022 COVID-19, MRNA-LNP, 23-24, P F, 30 MCG/0.3 mL, 12 YRS AND ABOVE, IM ([employer]-ComirnatQuietly) 06/09/2023 Covid-19, Mrna, Lnp-s, Pf, B ivalent, 30 Mcg, IM, 12 yrs and above (Anokion SA) 09/10/2022 HEP A - Hepatitis A (Adult [...] on file documented as of this encounter Last Filed Vital Signs Vital Sign Reading Time Taken Comments Blood Pressure 105/45 07/31/2023 1:56 PM EST Pulse 56 07/31/2023 1:56 PM EST Temperature 36.3 C (97.3 F) 07/31/2023 9:34 AM ES T Respiratory Rate 15 07/31/2023 1:56 PM EST Oxygen Saturation 96% 07/31/2023 1:56 PM EST Inhaled Oxygen Concentration - - Weight 72.6 kg (160 lb) 07/31/2023 6:08 AM EST Height 165.1 cm (5' 5") 07/31/2023 6:08 AM EST Body Mass Index 26.63 07/31/2023 6:08 AM EST documented in this encounter Functional Status Functional Status Response Date of Assess ment Are you deaf or do you have serious difficulty hearing? No[place] can hear w/ hearing aid 03/07/2023 Are [...] No 03/07/2023 documented as of this encounter Discharge Instructions * Discharge Instr - AVS* Pedro Ruiz, DNP - 07/31/2023 10:23 AM EST CARDIAC RECOVERY SUITE Discharge Date: 07/31/2023 Check your Patient Education Brochure for further information. Please contact your physician, Dr. Rivera of the Department of Cardiology at [phone], during business hours for any questions or test results. For after-hour emergencies call [phone] and have your doctor paged. Scheduling Services is available daily between the hours of 8:00 a.m and 9:00 p.m. by calling . The information below provides you with the instructions and the list of medications you need to betaking following discharge from the hospital. If you have any questions, please ask before leaving.Please carry this letter with you when you see your doctor in the clinic. If you have questions, you can reach us at the numbers above. Diet: heart healthy diet Progress to prescribed diet as tolerated. If nausea should occur, have clear liquids only until soft foods can be tolerated. Special Instructions: Avoid exertion or strenuous exercise for 48 hours. You have been prescribed Plavix (clopidogrel) along with your 81 mg aspirin. You will need to continue taking both of these until you hear about the results of your transesophageal echocardiogram andblood work (see below) Do not drive for 5 days after the procedure. Call us if any of the following problems develop or become worse: Pain, firmness, pus, or a red streak near the puncture site Shortness of breath Fever above 101 degrees F If you have bleeding that can't be stopped by applying pressure call 911 Do not have any invasive procedures for 6 weeks after Watchman (such as GI endoscopy, dental work, or operations). You will need antibiotic prophylaxis prior to dental work for the first year following Watchman implant. You have been provided with a reminder card addressing this. It is safe to have an MRI with this device; no clearance or letter is needed. You are scheduled for a transesophageal echocardiogram on Friday09/15/2023. Please be sure to get blood work from any [facility] facility on the same day, or a few days prior to the echocardiogram. You will be called about the results of these tests and further instructions regarding your Plavix and aspirin. If there are any issues before this, do not stop these medications without discussing with Dr. Zhang or Dr. Rivera. See your primary care physician (Florentin Calvo DO) as scheduled. You are scheduled for a transesophageal echocardiogram on Friday September 15, 2023 at 8:00 AM. Please be sure to bring a trackless trolley driver as you will get sedation for this. Please get blood work done on 09/15 or the day prior. You can get this done at any [facility] facility. The orders are in the computer. Be sure to take Plavix and aspirin every day as prescribed. You will be called by JESS Patterson about the results of the transesophageal echocardiogram and the blood work within a few days afterthe tests are done. He will give you further directions regarding the Plavix and aspirin. documented in this encounter Progress Notes * Romeo Romero, [facility] - 07/31/2023 2:15 PM EST PHARMACY MEDICATION TEACHING CONSULT ANTIPLATELET THERAPY [address] [address] Name: Inga Barakat Location: CATH/Cath Date: 07/31/2023 Time: 2:16 PM Requesting Service: cardiology Patient Active Problem List Diagnosis Code Type 2 diabetes mellitus with hemoglobin A1c goal of less than 7.0% ([facility]) E11.9 Vertigo R42 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 claudication M48.061 Hypothyroidism E03.9 Displacement of cervical intervertebral disc without myelopathy M50.20 Meniere's disease H81.09 Paroxysmal atrial fibrillation ([facility]) I48.0 Obstructive sleep apnea of adult G47.33 Tremor R25.1 Iron deficiency anemia D50.9 Angiodysplasia of colon with hemorrhage K55.21 Acquired renal cyst N28.1 Controlled substance agreement signed Z79.899 Type 2 diabetes mellitus with polyneuropathy ([facility]) E11.42 Secondary hyperparathyroidism, renal ([facility]) N25.81 Pulmonary hypertension ([facility]) I27.20 Current moderate episode of major depressive disorder without prior episode ([facility]) F32.1 Moderate persistent asthma without complication J45.40 Gastro-esophageal reflux disease without esophagitis K21.9 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 ([facility]) E11.319 Pure hypercholesterolemia E78.00 Aneurysm of left carotid artery ([facility]) I72.0 Aortic atherosclerosis ([facility]) I70.0 Chronic kidney disease, stage 3b ([facility]) N18.32 PVD (peripheral vascular disease) ([facility]) I73.9 Chronic diastolic CHF (congestive heart failure) ([facility]) I50.32 Type 2 diabetes mellitus with stage 3b chronic kidney disease, without long-term current use of insulin ([facility]) E11.22, N18.32 Cardiac pacemaker in situ Z95.0 History of endometrial cancer Z85.42 Normocytic anemia D64.9 Primary osteoarthritis of right knee M17.11 Severe tricuspid regurgitation I07.1 History of TIA (transient ischemic attack) Z86.73 Atherosclerosis of jena coronary artery without angina pectoris I25.10 S/P mitral valve clip implantation Z98.890, Z95.818 Presence of Watchman left atrial appendage closure device Z95.818 Medication covered during teaching session: Clopidogrel Indication for Antiplatelet Therapy: s/p Watchman implant Duration of Antiplatelet Therapy: 3-6 months per team Teaching points covered with patient and/or family: Route, Dosage Form and Schedule, Medication Intended Use/Action, Precautions to be Observed while using this Medication, Commonly Encountered Adverse Effects, Methods for Self- monitoring, Laboratory Monitoring, Potential Food and Drug Interactions, Therapeutic Contraindications, Prescription Refill Information, Action for a Missed Dose, and Patient Specific Information Outpatient antiplatelet medication supply: Patient requires a prescription for this antiplatelet medication: Patient prefers to have the prescription sent to his/her preferred pharmacy. Family member(s) present: Son(s) Patient agreed to allow visitors to attend teaching, if present. Assessment of teaching effectiveness: reviewed medication with patient, she participated in discussion, all questions were answered Has the patient expressed potential cost concerns? No Length of teaching: Brief (less than 15 minutes) Teaching completed according to pharmacy teaching standard 508. documented in this encounter Procedure Notes * Wilbur Rivera MD - 07/31/2023 9:58 AM EST Inga Wangreiber [id number] 07/31/23 TRANSCATHETER WATCHMAN IMPLANTATION Primary Surgeon Wilbur Rivera MD ASSISTING PHYSICIANS: 1. Dr. Zhang (As underwriting assistant surgeon was necessary to aid with vascular access as well as with watchman implantation) DIAGNOSES: Atrila fibrillation PROCEDURES: Successful percutaneous BOB Closure with placement of 31 mm Watchman Device PROCEDURAL DETAILS: The patient was counseled extensively regarding the risks, benefits, and alternatives to the procedure and after answering all questions, the patient yielded informed consent. Thepatient was thereafter brought to the EP room. Sterile technique was used throughout the case. All vascular access was obtained by modified Seldinger technique. Preprocedural antibiotic was administered intravenously. General anesthesia was used throughout the case. Transesophageal echocardiogram was used throughoutthe case. An 8F sheath was placed at the right femoral vein after deployment of dual Perclose Proglide devices (pre-close technique). Using a stiff wire, we then placed a 45 cm long 16 F Cook sheath through the right femoral vein. Using a 0.032" wire, an 8F SL1 sheath was advanced into the right atrium.Then a Quincuscross system was used to puncture the atrial septum, using both fluoroscopy and BRENDAN for guidance. Once the septum was punctured, the Turrell sheath was advanced to the left atrium (mean LA pressure = 18 mmHg). Intravenous heparin was administered to maintain an ACT between 250-350 seconds. An 0.032" Toray Guide wire was then advanced into the left atrium. The RIGHT femoral vein and then the 14F Double curve Watchman sheath was advanced into the left atrium. A 6F pigtail catheter wasthen advanced without a wire via the Watchman sheath into the BOB and multiple cine-angiograms wereperformed to determine orientation and size of the BOB. The sheath was then advanced into the BOB over the pigtail catheter. Then, using both fluoroscopy and BRENDAN, a 31 mm Watchman device was successfully placed, confirmed by BRENDAN. After we felt satisfied with device position, anchoring, size, and seal (PASS), the device was released. All equipment was then removed. The perclose sutures were cinched to seal the right femoral vein, and hemostasis was achieved with manual compression. A figure of eight stich was placed on the skin for complete hemostasis. IMPRESSION: Successful placement of Watchman Device 31 mm RECOMMENDATIONS: 1. Resume anticoagulation with ASA + Brilinta 3. Maintain on above regimen for 45 days. Then return for BRENDAN to confirm device position and seal. I understand that section 1842 (b)(7)(D) of the Social Security Act generally prohibits Medicare physician fee schedule payment for the services of [id number] in teaching hospitals when qualified residents are available to furnish such services. I certify that the services for which payme nt is claimed were medically necessary, and that no qualified resident was available to perform theservices. I further understand that these services are subject to post-payment review by the Medicare carrier. Wilbur Rivera MD MPH Interventional Cardiology Pager: [phone] 07/31/23 9:58 AM documented in this encounter Consult Notes * Romeo Romero RP - 07/31/2023 2:18 PM ESTAssociated Order(s): PHARMACY CONSULT IP See other note documented in this encounter Miscellaneous Notes * Ancillary Progress Note - Teresa Cortez RCIS - 07/31/2023 9:27 AM EST [facility] [place]-[address] [address] Ancillary Progress Note Patient Name: Inga Barakat Date: 07/31/2023 1 sheaths were pulled post Electrophysiology procedure. 16 Fr sheath pulled post procedure from right femoral vein with perclose X 2 and figure 8 suture byANTONY Cervantes . Hemostasis was obtained, with no hematoma noted. Sterile Gauze and Tegaderm dressing applied to site.. Instructions were given to the patient. The patient verbalized understanding. documented in this encounter Plan of Treatment Upcoming Encounters Date Type Department Care Team (Late st Contact Info) Description 08/01/2023 10:00 AM EST Home Visit [facility] [address] [facility] [place] [address] Michelle Hurt RN [address] [place] [address] 08/13/2023 8:40 AM EST Office Visit Nephrology, [facility] [address] [place] [address] Rosario Green MD [address] [place] [address] 08/22/2023 2:20 PM EST Office Visit Family Practice [address] [place] [address] [address] [place] [address] Florentin Calvo, [address] [place] [address] 09/02/2023 2:30 PM EST Home Visit [facility] [address] [facility] [place] [address] Michelle Hurt, RN 132 [place] [address] 09/15/2023 8:00 AM EST Appointment Cardiac Studies [facility] [address] [place] [address] 09/19/2023 8:30 AM EST Procedure Only Endoscopy, [place] [address] [facility] [place], [place] [address] Jana Vieira, DO [address] [place] [address] 09/22/2023 3:00 PM EST Office Visit Cardiology, [facility] [address] [facility] [place] [address] Stephen Hewitt, DO [facility] [address] 10/14/2023 2:30 PM EST Office Visit Hematology/Oncology [facility] [address] [facility] [place] [place] [address] Nereyda Metz CRNP [facility] [address] 10/24/2023 2:30 PM EST Office Visit Gynecology/Oncology, [place] [address] [place] [address] Vanessa Elena PA-C [address] [place] [address] 01/21/2024 2:40 PM EDT Office Visit Otolaryngology [facility] [address] [facility] [address] Cheri Castillo PA-C [address] [facility] [place] [address] 06/03/2024 2:15 PM EDT Office Visit Ophthalmology, [facility] [address] [facility] [place] [address] Wilbur Benavides, DO [address] [place] [address] Pending Results Name Type Priority Associated Diagnoses Date/Time CV ECHO, BRENDAN INTRAOPERATIVE Echocardiology Routine PAF (paroxysmal atrial fibrillation) ([facility]) 07/31/2023 9:33 AM EST Scheduled Orders Name Type Priority Associated Diagnoses Order Schedule CV ECHO, BRENDAN INTRAOPERATIVE Echocardiology Routine PAF (paroxysmal atrial fibrillation) ([facility]) One Time for 1 Occurrences starting 07/31/2023 until 07/31/2023 EKG EKG Routine PAF (paroxysmal atrial fibrillation) ([facility]) One Time for 1 Occurrences starting 07/31/2023 until 07/31/2023 EKG EKG STAT Chest pain One Time for 1 Occurrences starting 07/31/2023 until 07/31/2023 TRANSESOPHAGEAL ECHO (COMPLETE) Echocardiology Routine Presence of Watchman left atrial appendage closure device Expected: 09/15/2023, Expires: 08/31/2024 CBC Lab Routine Presence of Watchman left atrial appendage closure device Expected: 09/15/2023, Expires: 07/31/2024 BASIC METABOLIC PANEL Lab Routine Presence of Watchman left atrial appendage closure device Expected: 09/15/2023, Expires: 07/31/2024 Health Maintenance Due Date Last Done Comments Hepatitis B (1 of 3 - Risk 3-dose series) 2000 CKD PHOS USE SMARTSET 07193 05/01/2023 09/0 02/2022, 04/03/2022, 12/05/2020, Additional history exists HbA1c 08/23/2023 02/21/2023, 01/0 10/2022, 04/03/2022, Additional history exists TSH 09/24/2023 09/24/2022, 01/0 10/2022, 02/12/2022, Additional history exists Diabetic Foot Exam 10/01/2023 10/01/2022, 0 10/26/2021, 12/05/2020, Additional history exists GFR 01/30/2024 07/31/2023, 11/0 04/2023, 05/09/2023, Additional history exists Albumin/Creatinine Ratio 02/22/202402/21/2 023, 05/01/2022, 10/26/2021, Additional history exists Diabetic Eye Exam 05/22/2024 05/22/2023, , 05/22/2023, Additional history exists Depression Screening 05/23/2024 05/23/2023 CKD HGB USE SMARTSET 25436 07/31/202407/31, 07/31/2023, 07/24/2023, Additional history exists DXA [...] this encounter Medical Devices Implanted Type Area Artificial Stone Setter Device Identifier Shelf Expiration Date Model / Serial / Lot Cath Thermodilution 6fr - [id number] Implanted:Qty: 1 on 01/24/2023 by Wilbur Rivera MD at [facility] [employer] [id number] 10/15/2024 [id number] / / [id number] Mirtaclip G4 - [id number] Implanted:Qty: 1 on 03/10/2023 at [facility] amprice 11/19/2023 [id number] / / [id number] Device Watchman Flx 31mm - [id number] Implanted:Qty: 1 on 07/31/2023 by Wilbur Rivera MD at [facility] [employer] : INTRV CARD [id number] 12/02/2025 [id number] documented as of this encounter Procedures Procedure Name Priority Date/Time Associated Diagnosis Comments ECHO, COMPLETE (2D), TRANS-THORACIC Routine 07/31/2023 4:06 PM EST Pericardial effusion CBC STAT 07/31/2023 3:20 PM EST PT INR STAT 07/31/2023 10:43 AM EST ACT, POINT OF CARE TANJA 07/31/2023 8: 35 AM EST COMPREHENSIVE METABOLIC PANEL STAT 07/31/2023 6:27 AM EST TYPE AND SCREEN STAT 07/31/2023 6:27 AM EST CBC STAT 07/31/2023 6:27 AM EST documented in this encounter Results * ECHO, COMPLETE (2D), TRANS-THORACIC (07/31/2023 4:06 PM EST) Pathologist [facility] LEFT VENTRICULAR EJECTION FRACTION 60 % [facility] CARDIOLOG[facility] 07/31/2023 3:32 PM EST Pedro Ruiz DNP ECHOCARDIOLOGY [facility] CARDIOLOG[facility] * (ABNORMAL) CBC (07/31/2023 3:20 PM EST) WBC 8.76 4.00 - 10.80 K/uL 07/31/2023 3:33 PM EST [facility] RBC 3.24 3.85 - 5.15 M/uL 07/31/2023 3:33 PM EST [facility] HGB 9.8(L) 12.0 - 15.3 g/dL 07/31/2023 3:33 PM EST [facility] HCT 32.3(L) 36.0 - 45.2 % 07/31/2023 3:33 PM EST [facility] MCV 99.7 81.5 - 97.5 fL 07/31/2023 3:33 PM EST [facility] MCH 30.2 27.0 - 34.0 pg 07/31/2023 3:33 PM EST [facility] MCHC 30.3 32.0 - 36.0 g/dL 07/31/2023 3:33 PM EST [facility] RDW 17.1 11.5 - 15.5 % 07/31/2023 3:33 PM EST [facility] PLT 184 140 - 400 K/uL 07/31/2023 3:33 PM EST [facility] MPV 10.0 6.6 - 11.1 fL 07/31/2023 3:33 PM EST [facility] nRBCs 0 <=0 /100 WBCs 07/31/2023 3:33 PM EST [facility] Blood Venous blood specimen / Unknown Venipuncture / Unknown 07/31/2023 3:20 PM EST 07/31/2023 3:25 PM EST Pedro Ruiz DNP LAB BLOOD ORDERABLES LABORATORY [facility] [address] [place] [address] * PT INR (07/31/2023 10:43 AM EST) [facility] Prothrombin Time 14.8 11.6 - 15.2 seconds 07/31/2023 11:23 AM EST LABORATORY [facility] INR 1.1 0.8 - 1.2 07/31/2023 11:23 AM EST LABORATORY [facility] Blood Venous blood specimen / Unknown Venipuncture / Unknown 07/31/2023 10:43 AM EST 07/31/2023 11:01 AM EST Narrative [facility] - 07/31/2023 11:23 AM EST Warfarin Therapy INR: 2.0-3.0 conventional anticoagulation INR: 2.5-3.5 high intensity anticoagulation [facility] BLOOD ORDERABLES [facility] [address] [place] [address] * ACT, POINT OF CARE (07/31/2023 8:35 AM EST) ACT 255 50 - 1,000 secs 07/31/2023 10:19 AM EST [facility] Blood 07/31/2023 8:35 AM EST 07/31/2023 10:19 AM EST Narrative [facility] - 07/31/2023 10:19 AM EST NORMAL (NON-HEPARINIZED) 74-137 SECONDS HEPARINIZED 200+ SECONDS CRITICAL GREATER THAN 1000 SECONDS Wilbur Rivera MD LAB POINT OF CARE TE ST DOCKED DEVICE UNSOLICITED RESULTS Performing Organization Address City/[facility] Co de Phone Number [facility] [address] [place] [address] * TYPE AND SCREEN (07/31/2023 6:27 AM EST) Pathologist [facility] ABO O 07/31/2023 7:44 AM EST [facility] BLOOD BANK Rh Positive 07/31/2023 7:44 AM EST [facility] BLOOD BANK Red Blood Cell Antibody Screen Negative 07/31/2023 7:44 AM EST [facility] BLOOD BANK Specimen Expiration Date 08/03/2023 23:59 07/31/2023 7:44 AM EST [facility] BLOOD BANK Blood Venous blood specimen / Unknown Venipuncture / Unknown 07/31/2023 6:27 AM EST 07/31/2023 6:34 AM EST [facility] TEST ORDERABLES [facility] BLOOD BANK [address] [place] [address] * (ABNORMAL) COMPREHENSIVE METABOLIC PANEL (07/31/2023 6:27 AM EST) Pathologist [facility] BUN 50(H) 6 - 20 mg/dL 07/31/2023 7:03 AM EST [facility] Creatinine 1.7(H) 0.5 - 1.0 mg/dL 07/31/2023 7:03 AM EST [facility] Estimated Glomerular Filtration Rate 30(L) >=60 mL/min 07/31/2023 7:03 AM EST [facility] Comment:eGFR is calculated b ased on the CKD-EPI 2020 equation Sodium 135 135 - 146 mmol/L 07/31/2023 7:03 AM EST [facility] Potassium 4.5 3.5 - 5.1 mmol/L 07/31/2023 7:03 AM EST [facility] Chloride 101 98 - 107 mmol/L 07/31/2023 7:03 AM EST [facility] CO2 23 22 - 32 mmol/L 07/31/2023 7:03 AM EST [facility] Anion Gap 11 7 - 15 mmol/L 07/31/2023 7:03 AM EST [facility] Glucose 138(H) 70 - 120 mg/dL 07/31/2023 7:03 AM EST [facility] Albumin 3.9 3.8 - 5.0 g/dL 07/31/2023 7:03 AM EST [facility] AST 61(H) 10 - 35 U/L 07/31/2023 7:03 AM EST [facility] Comment:Result may be falsel y elevated due to hemolysis. Alkaline Phosphatase 194(H) 35 - 130 U/L 07/31/2023 7:03 AM EST [facility] Bilirubin, Total 0.3 <=1.2 mg/dL 07/31/2023 7:03 AM EST [facility] Calcium 9.7 8.4 - 10.2 mg/dL 07/31/2023 7:03 AM EST [facility] Protein 6.9 6.0 - 8.3 g/dL 07/31/2023 7:03 AM EST [facility] ALT 32 10 - 35 U/L 07/31/2023 7:03 AM EST [facility] Blood Venous blood specimen / Unknown Venipuncture / Unknown 07/31/2023 6:27 AM EST 07/31/2023 6:34 AM EST [facility] BLOOD [facility] [address] [place] [address] * (ABNORMAL) CBC (07/31/2023 6:27 AM EST) WBC 9.61 4.00 - 10.80 K/uL 07/31/2023 6:44 AM EST [facility] RBC 3.31 3.85 - 5.15 M/uL 07/31/2023 6:44 AM EST [facility] HGB 10.0(L) 12.0 - 15.3 g/dL 07/31/2023 6:44 AM EST [facility] HCT 32.1(L) 36.0 - 45.2 % 07/31/2023 6:44 AM EST [facility] MCV 97.0 81.5 - 97.5 fL 07/31/2023 6:44 AM EST [facility] MCH 30.2 27.0 - 34.0 pg 07/31/2023 6:44 AM EST [facility] MCHC 31.2 32.0 - 36.0 g/dL 07/31/2023 6:44 AM EST [facility] RDW 16.6 11.5 - 15.5 % 07/31/2023 6:44 AM EST [facility] PLT 210 140 - 400 K/uL 07/31/2023 6:44 AM EST [facility] MPV 10.9 6.6 - 11.1 fL 07/31/2023 6:44 AM EST [facility] nRBCs 0 <=0 /100 WBCs 07/31/2023 6:44 AM EST [facility] Blood Venous blood specimen / Unknown Venipuncture / Unknown 07/31/2023 6:27 AM EST 07/31/2023 6:34 AM EST [facility] BLOOD ORDER[facility] [address] [place] [address] documented in this encounter Visit Diagnoses Diagnosis Paroxysmal atrial fibrillation (HCC)- Primary Atrial fibrillation PAF (paroxysmal atrial fibrillation) (HCC) Atrial fibrillation Pericardial effusion Unspecified disease of pericardium Chest pain Chest pain, unspecified Presence of Watchman left atrial appendage closure device Presence of Watchman left atrial appendage closure device documented in this encounter Administered Medications Inactive Administered Medications - up to 3 most recent administrations Medication Order MAR Action Action Date Dose Rate Site Acetaminophen (Tylenol) tab 650 mg 650 mg, Oral, Q4H PRN Pain, Moderate, Pain, Mild, Headache, Starting on María 07/31/23 at 1501, Until María 07/31/23 at 2236, Maximum of 4 grams (4000 mg) per day. Given 07/31/2023 3:07 PM EST 650 mg albuterol-ipratropium (Duoneb) inhalation solution 3 mL 3 mL, Nebulizer, RESPQID, First dose on María 07/31/23 at 0800, Until Discontinued, 3 mL = 0.5 mg ipratropium/ 2.5 mg albuterol, Pre-Op Given 07/31/2023 1:17 PM EST 3 mL aspirin enteric coated tab 81 mg 81 mg, Oral, [id number], First dose on María 07/31/23 at 1300, Until Discontinued Given 07/31/2023 1:19 PM EST 81 mg clopidogrel (pLAVix) tab 75 mg 75 mg, Oral, Daily(AM), First dose on María 07/31/23 at 1300, Until Discontinued Given 07/31/2023 1:17 PM EST 75 mg NSS infusion Intravenous, at 25 mL/hr, CONTINUOUS, Starting on María 07/31/23 at 0630, Until María 07/31/23 at 1629, Pre-Op New Bag 07/31/2023 11:18 AM EST 25 mL/ hr Restarted 07/31/2023 9:28 AM EST New Bag 07/31/2023 7:42 AM EST 75 mL/hr documented in this encounter Active and Recently Administered Medications Times are shown in EST. Scheduled Medication Order 07/29/2023 07/30/2023 07/31/2023 albuterol-ipratropium (Duoneb) inhalation solution 3 mL 3 mL, Nebulizer, RESPQID, First dose on María 07/31/23 at 0800, Until Discontinued, 3 mL = 0.5 mg ipratropium/ 2.5 mg albuterol, Pre-Op 0800 (Not Given - Pr ovider: Nicolette Bourne RN - Reason: Other- Please add reason in Comments - Comment: pt intraop)1317 (Given - Provider: Nicolette Bourne RN)1600 (Not Given - Provider: Nicolette Bourne RN - Reason: Parameter(s) Not Met) Allopurinol (Zyloprim) tab 300 mg 300 mg, Oral, HS, First dose on Fri07/31/23 at 2200, Until Discontinued aspirin enteric coated tab 81 mg 81 mg, Oral, [id number], First dose on Fri07/31/23 at 1300, Until Discontinued 1319 (Given - Provid er: Nicolette Bourne, AISHA) atorvaSTATin (Lipitor) tab 20 mg 20 mg, Oral, Q1700, First dose on Fri07/31/23 at 1700, Until Discontinued 1700 (Due) clopidogrel (pLAVix) tab 75 mg 75 mg, Oral, Daily(AM), First dose on Fri07/31/23 at 1300, Until Discontinued 1317 (Given - Provid er: Nicolette Bourne RN) doxycycline (Vibramycin) 100 mg in NSS 100 mL ivpb 100 mg, IV Piggyback, ONCE, 1 dose, On Fri07/31/23 at 0630, Administer over 60 Minutes, Protect from Light! Mix before Administering! WASTE INFO: Return waste medication to pharmacy in zip lock bag - SPLP container. 0630 (Not Given - Pr ovider: Nicolette Bourne RN - Reason: Order Clarified - Comment: abx given intraop) Levothyroxine Sodium (Levoxyl) tab 125 mcg 125 mcg, Oral, [id number], First dose on Fri08/01/23 at 0630, Until Discontinued montelukast (Singulair) tab 10 mg 10 mg, Oral, QHS, First dose on Fri07/31/23 at 2200, Until Discontinued pantoprazole (Protonix) tab 40 mg 40 mg, Oral, BID (0700,1900), First dose on Fri07/31/23 at 1900, Until Discontinued, This med should NOT be Crushed or Chewed sertraline (Zoloft) tab 150 mg 150 mg, Oral, Daily(AM), First dose on Fri08/01/23 at 0900, Until Discontinued sotalol (Betapace) tab 40 mg 40 mg, Oral, BID (.AM/PM), First dose on Fri07/31/23 at 2100, Until Discontinued, Hold for HR less than 60 or SBP below 100 and notify service if dose is held Torsemide (Demadex) tab 20 mg 20 mg, Oral, Daily(AM), First dose on Fri08/01/23 at 0900, Until Discontinued Continuous Medication Order 07/29/2023 07/30/2023 07/31/2023 NSS infusion Intravenous, at 25 mL/hr, CONTINUOUS, Starting on María 07/31/23 at 0630, Until María 07/31/23 at 1629, Pre-Op 0742 (New Bag - Prov ider: Ventura Coy CRNA)0927 (Paused - Provider: Ventura Coy CRNA - Comment: Switch to gravity)0928 (Restarted - Provider: Ventura Coy CRNA)1118 (New Bag - Provider: Nicolette Bourne RN)1500 (Stopped - Provider: Nicolette Bourne RN) NSS infusion Intravenous, at 25 mL/hr, CONTINUOUS, Starting on María 07/31/23 at 1045, Until María 07/31/23 at 1444, Post-op 1045 (Not Given - Pr ovider: Nicolette Bourne RN - Reason: Parameter(s) Not Met)1400 (Stopped - Provider: Nicolette Bourne RN) PRN Medication Order 07/29/2023 07/30/2023 07/31/2023 Acetaminophen (Tylenol) tab 650 mg 650 mg, Oral, Q4H PRN Pain, Moderate, Pain, Mild, Headache, Starting on María 07/31/23 at 1501, Until María 07/31/23 at 2236, Maximum of 4 grams (4000 mg) per day. 1507 (Given - Provid er: Nicolette Bourne RN) documented in this encounter Advance Directives Documents on File Type Date Recorded Patient Cut Off Machine Unloader Expl anation Advance Directives and Living Will 11/29/2022 ADVANCE DIRECTIVE / LIVING WILL Power of Heading Saw Operator 11/29/2022 POWER OF A TTORNEY Advance Directives and Living Will 10/24/2014 ADVANCE DIRECTIVE / LIVING WILL Power of Heading Saw Operator 10/24/2014 POWER OF A TTORNEY Latest Code [...] the patient have Health Care Power of Heading Saw Operator? No Code Status History Code Status Date [...] Agents on File Name Relationship Healthcare Agent Relationshi p Communication [facility] Adult Child Health Care Agen t (per Health Care Power of Heading Saw Operator document) Care Teams Wrapper Layer Relationship Specialty Start Date End Date Florentin Calvo DO [address] [place] [address] PCP - General Internal Medicine 03/24/13 documented as of this encounter
--- OUTSIDE RECORDS SUMMARY | 2023-08-14 23:32 | External Medical Summary | Summary of Care ---
Author Name Unknown Organization [facility] Address [address] [place] [address] Phone [phone] Care Team Providers Care Dietary Manager Name Role Phone Florentin Calvo DO Primary Care Provider [phone] Reason for Visit * Auth/Cert Specialty Diagnoses / Procedures Referred By Contac t Referred To Contact Diagnoses Paroxysmal atrial fibrillation (HCC) Paroxysmal atrial fibrillation (HCC) [I48.0] Procedures PERC CLOSURE TRANSCATH LEFT ATRIAL APPENDAGE W/ENDOCARDIAL IMPLANT PERCUTANEOUS CLOSURE LEFT ATRIAL APPENDAGE IMPLANT Referral ID Status Reason Start Date Expiration Date Visits Re quested Visits Authorized [id number] [phone] Encounter Details Date Type Department Care Team (Latest Contact Info) Description 07/31/2023 7:28 AM EST - 07/31/2023 4:00 PM EST Hospital Encounter Cardiac Studies [facility] [address], [place] [id number] Discharge Disposition: Home - Self Care Allergies Active Allergy Reactions Criticality Noted Date Comments Azithromycin Other (Please comment) 12/04/2021 QTC prolongation at [facility] Celecoxib Hives,Rash High 03/24/2013 Other reaction(s): Rash/Hives/Itching. [...] Date End Date Status OneTouch Verio w/Device KitIndications:Type 2 diabetes mellitus with [...] Oral Tablet (Lipitor)Indication s:PVD (peripheral vascular disease) ([facility]),Type 2 diabetes mellitus with stage 3a chronic kidney disease and hypertension ([facility]) TAKE ONE TABLET BY MOUTH EVERY DAY DIRECTED 100 Tablet 3 03/31/2023 Active Ipratropium [place] 0.03 % Nasal Solution (Atrovent)Indicatio ns:Chronic rhinitis [...] bedtime. 90 Tablet 3 05/16/2023 Active Tiotropium [place]-Olodaterol 2.5-2.5 MCG/ACT Inhalation Aerosol Solution (Stiolto Respimat) Inhale 2 Puffs by mouth in the morning. 12 g 3 05/23/2023 Active Levothyroxine Sodium 125 MCG Oral Tablet (Levoxyl) TAKE ONE TABLET BY MOUTH FIRST THING IN THE MORNING 100 Tablet 3 07/22/2023 07/21/2024 Active documented as of this encounter (statuses as of 08/01/2023) Active Problems Problem Noted Date Diagnosed Date Presence of Watchman left atrial appendage closu re device 07/31/2023 S/P mitral valve clip implantation 03/06/2023 Atherosclerosis of [place] 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 02/13/2023 Last Assessment & Plan: Continue statin, sotalol. ASA History of TIA (transient ischemic attack) 11/29 Last Assessment & Plan: -Recent admission to [facility], presented with numbness of tongue and slurred [...] Obstructive sleep apnea of adult 09/09/2014 Overview: MANAGEMENT INTERN Last Assessment & Plan: Now just using [...] or do you have serious difficulty hearing? No-[place] can hear w/ hearing aid 03/07/2023 Are [...] as of this encounter Miscellaneous Notes * Ancillary Progress Note - Jocy Garcia RN - 07/31/2023 7:30 AM EST BRENDAN was performed during Watchman implant in EP lab room # [address] Hammond and myself. BRENDAN went without complication. BRENDAN probe # [id number] was used for the procedure. documented in this encounter Plan of Treatment Upcoming Encounters Date Type Department Care Team (Late st Contact Info) Description 08/13/2023 8:40 AM EST Office Visit Nephrology, [facility] [address] [place] [address] Rosario Green MD [address] [place], [place] [address] 08/22/2023 2:20 PM EST Office Visit Family Practice [address] [place] [address] [address] [place] [address] Florentin Calvo, DO [address] [facility] [place] [address] 09/02/2023 2:30 PM EST Home Visit [facility] [address] [facility] [place] [address] Michelle Hurt RN [address] [facility] [place] [address] 09/15/2023 8:00 AM EST Appointment Cardiac Studies [facility], [address] [address] 09/19/2023 8:30 AM EST Procedure Only Endoscopy, [facility] [address] [facility] [place] [address] Jana Vieira, DO [address] [facility] [place] [address] 09/22/2023 3:00 PM EST Office Visit Cardiology, [facility] [address] [facility] [place] [address] Stephen Hewitt, DO [address] [facility] [place] [address] 10/14/2023 2:30 PM EST Office Visit Hematology/On[facility] [address] [facility] [place], [place] [address] Nereyda Metz CRNP [address] [facility] [place] [address] 10/24/2023 2:30 PM EST Office Visit Gynecology/Oncology, [address] [address] Vanessa Elena PA-C [address] [facility] [address] 01/21/2024 2:40 PM EDT Office Visit Otolaryngology [facility] [address] [facility] [place] [address] Cheri Castillo PA-C [address] [facility] [place] [address] 06/03/2024 2:15 PM EDT Office Visit Ophthalmology, [facility] [address] [facility] [place] [address] Wilbur Benavides, DO [address] [place] [address] Health Maintenance Due Date Last Done Comments Hepatitis B (1 of 3 - Risk 3-dose series) 2000 CKD PHOS USE SMARTSET [id number] 05/01/2023 09/0 02/2022, 04/03/2022, 12/05/2020, Additional history [...] Screening 05/23/2024 05/23/2023 CKD HGB USE SMARTSET 14600 07/31/202407/31, 07/31/2023, 07/24/2023, Additional history exists DXA [...] this encounter Medical Devices Implanted Type Area Office Technology Instructor Device Identifier Shelf Expiration Date Model / Serial / Lot Cath Thermodilution 6fr - [id number] Implanted:Qty: 1 on 01/24/2023 by Wilbur Rivera MD at [facility] [employer] [id number] 10/15/2024 [id number] / / [id number] Mirtac[employer] G4 - [id number] Implanted:Qty: 1 on 03/10/2023 at [facility] [employer] 11/19/2023 [id number] / / [id number] Device Watchman Flx 31mm - [id number] Implanted:Qty: 1 on 07/31/2023 by Wilbur Rivera MD at [facility] [employer] : INTRV CARD [id number] 12/02/2025 [id number] documented as of this encounter Advance Directives Documents on File Type Date Recorded Patient Rooms Director Expl anation Advance Directives and Living Will 11/29/2022 ADVANCE DIRECTIVE / LIVING WILL Power of Speech Pathologist 11/29/2022 POWER OF A TTORNEY Advance Directives and Living Will 10/24/2014 ADVANCE DIRECTIVE / LIVING WILL Power of Speech Pathologist 10/24/2014 POWER OF A TTORNEY Latest Code [...] the patient have Health Care Power of Speech Pathologist? No Code Status History Code Status Date [...] Agents on File Name Relationship Healthcare Agent [facility] Communication [facility] Adult Child Health Care Agen t (per Health Care Power of Speech Pathologist document) Care Teams Dietary Manager Relationship Specialty Start Date End Date Florentin Calvo DO [address] [place] [address] PCP - General Internal Medicine 03/24/13 documented as of this encounter
--- OUTSIDE RECORDS SUMMARY | 2023-08-14 23:32 | External Medical Summary | Summary of Care ---
Author Name Unknown Organization [facility] Address [address] [place] [address] Phone [phone] Care Team Providers Care Non Destructive Tester Name Role Phone Florentin Calvo DO Primary Care Provider [phone] Reason for Visit * Auth/Cert Specialty Diagnoses / Procedures Referred By Contac t Referred To Contact Diagnoses Paroxysmal atrial fibrillation (HCC) Paroxysmal atrial fibrillation (HCC) [I48.0] Procedures PERC CLOSURE TRANSCATH LEFT ATRIAL APPENDAGE W/ENDOCARDIAL IMPLANT PERCUTANEOUS CLOSURE LEFT ATRIAL APPENDAGE IMPLANT Referral ID Status Reason Start Date Expiration Date Visits Re quested Visits Authorized [id number] Encounter Details Date Type Department Care Team (Latest Contact Info) Description 07/31/2023 4:01 PM EST - 07/31/2023 11:59 PM EST Hospital Encounter Cardiac Studies [facility] [address], [place] [id number] Discharge Disposition: Home - Self Care Allergies Active Allergy Reactions Criticality Noted Date Comments Azithromycin Other (Please comment) 12/04/2021 QTC prolongation at [facility] Celecoxib Hives,Rash High 03/24/2013 Other [...] DIRECTED 100 Tablet 3 03/31/2023 Active Ipratropium [place] 0.03 % Nasal Solution (Atrovent)Indicatio ns:Chronic rhinitis [...] bedtime. 90 Tablet 3 05/16/2023 Active Tiotropium [place]-Olodaterol 2.5-2.5 MCG/ACT Inhalation Aerosol Solution (Stiolto Respimat) Inhale 2 Puffs by mouth in the morning. 12 g 3 05/23/2023 Active Levothyroxine Sodium 125 MCG Oral Tablet (Levoxyl) TAKE ONE TABLET BY MOUTH FIRST THING IN THE MORNING 100 Tablet 3 07/22/2023 07/21/2024 Active Clopidogrel Bisulfate 75 MG Oral Tablet (pLAVix) Take 1 Tablet by mouth every evening. 30 Tablet 5 07/31/2023 Active Hospital, Clinic, or Other Facility Administered [...] mitral valve clip implantation 03/06/2023 Atherosclerosis of [place] 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 02/13/2023 Last Assessment & Plan: Continue statin, sotalol. ASA History of TIA (transient ischemic attack) 11/29 Last Assessment & Plan: -Recent admission to [facility], presented with numbness of tongue [...] Obstructive sleep apnea of adult 09/09/2014 Overview: SURGICAL PATHOLOGIST Last Assessment & Plan: Now just using [...] MCG/0.3 mL, 12 YRS AND ABOVE, IM (Mastodon C-Comirnat) 06/09/2023 Covid-19, Mrna, Lnp-s, Pf, B ivalent, 30 Mcg, IM, 12 yrs and above ([employer]) 09/10/2022 HEP A - Hepatitis A (Adult [...] or do you have serious difficulty hearing? No-[place] can hear w/ hearing aid 03/07/2023 Are [...] EST Office Visit Nephrology, Jerri Zamora [facility] [place] [address] Rosario Green MD [address] [place] [address] 08/22/2023 2:20 PM EST Office Visit Family Practice [address] [place] [address] 293 [facility], [place] [address] Florentin Calvo, DO 293 [facility] [place] [address] 09/02/2023 2:30 PM EST Home Visit [facility] [address] [facility] [place] [address] Michelle Hurt RN 132 [facility] [place] [address] 09/15/2023 8:00 AM EST Appointment Cardiac Studies [facility], [address] [address] 09/19/2023 8:30 AM EST Procedure Only Endoscopy, [facility] [address] [facility] [place] [address] Jana Vieira, DO 132 [facility] [place] [address] 09/22/2023 3:00 PM EST Office Visit Cardiology, [facility] [address] [facility] [place] [address] Stephen Hewitt, DO 132 [facility] [place] [address] 10/14/2023 2:30 PM EST Office Visit Hematology/Oncology [facility] [address] [place] [address] Nereyda Metz CRNP 400 [facility] [place] [address] 10/24/2023 2:30 PM EST Office Visit Gynecology/Oncology, [place] [address] [place] [address] Vanessa Elena PA-C [address] [place], [place] [phone] 01/21/2024 2:40 PM EDT Office Visit Otolaryngology [facility] 132 [facility] [place] [address] Cheri Castillo PA-C 132 [facility] [place] [address] 06/03/2024 2:15 PM EDT Office Visit Ophthalmology, [facility] 132 [facility] [place] [address] Wilbur Benavides, DO 21 [place] [address] Health Maintenance Due Date Last Done Comments Hepatitis B (1 of 3 - Risk 3-dose series) 2000 CKD PHOS USE SMARTSET 22881 05/01/2023 09/0 02/2022, 04/03/2022, 12/05/2020, Additional history exists HbA1c 08/23/2023 02/21/2023, 010 10/2022, 04/03/2022, Additional history exists TSH 09/24/2023 09/24/2022, 01/0 10/2022, 02/12/2022, Additional history exists Diabetic Foot Exam 10/01/2023 10/01/2022, 0 10/26/2021, 12/05/2020, Additional history exists GFR 01/30/2024 07/31/2023, 11/0 04/2023, 05/09/2023, Additional history exists Albumin/Creatinine Ratio 02/22/2024 023, 05/01/2022, 10/26/2021, Additional history exists Diabetic Eye Exam 05/22/2024 05/22/2023, , 05/22/2023, Additional history exists Depression Screening 05/23/2024 05/23/2023 CKD HGB USE SMARTSET 88815 07/31/202407/31, 07/31/2023, 07/24/2023, Additional history exists DXA [...] this encounter Medical Devices Implanted Type Area Concrete Mixer Operator Helper Device Identifier Shelf Expiration Date Model / Serial / Lot Cath Thermodilution 6fr - [id number] Implanted:Qty: 1 on 01/24/2023 by Wilbur Rivera MD at [facility] [employer] TERE [id number] 10/15/2024 [id number] / / [id number] Mirtaclip G4 - [id number] Implanted:Qty: 1 on 03/10/2023 at [facility] Lumiy 11/19/2023 [id number] / / [id number] Device Watchman Flx 31mm - [id number] Implanted:Qty: 1 on 07/31/2023 by Wilbur Rivera MD at [facility] [employer] : INTRV CARD [id number] 12/02/2025 [id number] documented as of this encounter Procedures Procedure Name Priority Date/Time Associated Diagnosis Comments ECHO, COMPLETE (2D), TRANS-THORACIC Routine 07/31/2023 4:06 PM EST Pericardial effusion documented in this encounter Results * ECHO, COMPLETE (2D), TRANS-THORACIC (07/31/2023 4:06 PM EST) LEFT VENTRICULAR EJECTION FRACTION 60 % [facility] CARDIOLOGY 07/31/2023 3:32 PM EST Pedro Ruiz DNP ECHOCARDIOLOGY [facility] CARDIOLOGY documented in this encounter Advance Directives Documents on File Type Date Recorded Patient Credit Portfolio Manager Expl anation Advance Directives and Living Will 11/29/2022 ADVANCE DIRECTIVE / LIVING WILL Power of Mounter Automatic 11/29/2022 POWER OF A TTORNEY Advance Directives and Living Will 10/24/2014 ADVANCE DIRECTIVE / LIVING WILL Power of Mounter Automatic 10/24/2014 POWER OF A TTORNEY Latest Code [...] the patient have Health Care Power of Mounter Automatic? No Code Status History Code Status Date [...] Relationship Healthcare Agent Relationshi p Communication Bright Yuval Adult Child Health Care Agen t (per Health Care Power of Mounter Automatic document) Care Teams Non Destructive Tester Relationship Specialty Start Date End Date Florentin Calvo DO 293 [facility] [place] [address] PCP - General Internal Medicine 03/24/13 documented as of this encounter
--- OUTSIDE RECORDS SUMMARY | 2023-08-14 23:32 | External Medical Summary | Summary of Care ---
Author Name Unknown Organization [facility] Address [address] [place] [address] Phone [phone] Care Team Providers Care Hydraulic Bull Riveter Operator Name Role Phone Grey Calvo DO Primary Care Provider Encounter Details Date Type Department Care Team (Late st Contact Info) Description 08/01/2023 Refill [facility], [facility] 132 [facility] [place] [address] Michelle Hurt RN [address] [place] [address] Persistent insomnia; Anxiety Allergies Active Allergy Reactions Criticality Noted Date Comments Azithromycin Other (Please comment) 12/04/2021 QTC prolongation at [facility] Celecoxib Hives,Rash High 03/24/2013 Other reaction(s): Rash/Hives/Itching. [...] Dispensed Refills Start Date End Date Status Interactive Motion TechnologiesTouch Verio w/Device KitIndications:Type 2 diabetes mellitus with hemoglobin A1c goal of less than 7.0% ([facility]) Use up to 1 times a day. [...] Oral Tablet (Lipitor)Indication s:PVD (peripheral vascular disease) ([facility]),Type 2 diabetes mellitus with stage 3a chronic kidney disease and hypertension ([facility]) TAKE ONE TABLET BY MOUTH EVERY DAY DIRECTED 100 Tablet 3 03/31/2023 Active Ipratropium [place] 0.03 % Nasal Solution (Atrovent)Indicatio ns:Chronic rhinitis [...] bedtime. 90 Tablet 3 05/16/2023 Active Tiotropium [place]-Olodaterol 2.5-2.5 MCG/ACT Inhalation Aerosol Solution (Stiolto Respimat) [...] MG Oral Tablet (xaNAX)Indications: Persistent insomnia,Anxiety Take half of a tablet as needed for anxiety and sleep as [...] mitral valve clip implantation 03/06/2023 Atherosclerosis of [place] 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 02/13/2023 Last Assessment & Plan: Continue statin, sotalol. 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 No-[place] can hear w/ hearing aid 03/07/2023 Are [...] encounter Miscellaneous Notes * Telephone Encounter - Grey Calvo DO - 08/01/2023 4:21 PM ESTSigned Prescriptions: Disp Refills ALPRAZolam 0.5 MG Oral Tablet (xaNAX) 30 Tab*0 Sig: Take half ofa tablet as needed for anxiety and sleep as needed no more than two times a dayAuthorizing Provider: GREY CALVO * Telephone Encounter - Grey Calvo DO - 08/01/2023 4:19 PM EST I have reviewed the patients controlled substance dispensing history in the Prescription Drug Monitoring Program in compliance with the [facility] regulations before prescribing a controlled substance. Last Tox Screen Results: No results found. However, due to the size of the patient record, not all encounters were searched.Please check Results Review for a complete set of results. Medication is due * Telephone Encounter - Hilda Elizabeth, AISHA - 08/01/2023 4:06 PM EST Spoke with pt-told plavix is not in place of xanax-pt voiced understanding. States she is unsure why she was to stop xanax. Spoke with Dr Calvo-states xanax should not be stopped abruptly. OK to continue with xanax at bedtime Pt states she only uses at bedtime and only takes 1/2 tab. Needs refill-would like it sent to [facility] pended * Telephone Encounter - Grace Arnold OSA - 08/01/2023 2:46 PM EST Pt calling to ask why she would need to change from xanax to Plavix. She states she doesn't sleep without the xanax. She is asking someone return her call to advise. She can be reached at [phone] * Telephone Encounter - Grey Calvo DO - 08/01/2023 11:27 AM EST Patient should continue Alprazolam. See how often she is taking the Alprazolam 0.5 mg * Telephone Encounter - Michelle Hurt RN - 08/01/2023 10:[address] Calvo, Pt had watchman device implanted yesterday. Per her d/c notes, it says to stop Xanax. Family was unsure about this. Wondering if she needs to stop this as she uses it nightly to help her sleep. Could you please advise of if she is ok to continue this? Thank you documented in this encounter Plan of Treatment Upcoming Encounters Date Type Department Care Team (Late st Contact Info) Description 08/13/2023 8:40 AM EST Office Visit [facility]ph[facility], [facility] [address] Rosario Green MD [address] [facility] [address] 08/22/2023 2:20 PM EST Office Visit Family Practice 65 [facility] 293 [facility], [place] [address] Grey [facility] DO [facility] [address] 09/02/2023 2:30 PM EST Home Visit [facility] [place], [facility] 132 [facility] [place] [address] Michelle Hurt, RN [address] [place] [address] 09/15/2023 8:00 AM EST Appointment Cardiac Studies [facility], [place] [address] [place] [address] 09/19/2023 8:30 AM EST Procedure Only Endoscopy, [facility] [address] [place] [address] Jana Vieira, DO [address] [place] [address] 09/22/2023 3:00 PM EST Office Visit Cardiology, [facility] [place] [address] Stephen Hewitt, [address] [place] [address] 10/14/2023 2:30 PM EST Office Visit Hematology/Oncology [facility] 200 [place] [address] Nereyda Metz CRNP [address] [place] [address] 10/24/2023 2:30 PM EST Office Visit Gynecology/Oncology, [address] [address] Vanessa Elena PA-C [facility] [place] [address] 01/21/2024 2:40 PM EDT Office Visit Otolaryngology [facility] 132 [facility] [place] [address] Cheri Castillo PA-C [address] [place] [address] 06/03/2024 2:15 PM EDT Office Visit Ophthalmology, [facility] 132 [facility] [place] [address] Wilbur Benavides, DO 21 [facility] [place] [address] Health Maintenance Due Date Last Done Comments Hepatitis B (1 of 3 - Risk 3-dose series) 2000 CKD PHOS USE SMARTSET 02665 05/01/2023 09/0 02/2022, 04/03/2022, 12/05/2020, Additional history [...] Screening 05/23/2024 05/23/2023 CKD HGB USE SMARTSET 11046 07/31/202407/31, 07/31/2023, 07/24/2023, Additional history exists DXA [...] this encounter Medical Devices Implanted Type Area Turnstile Collector Device Identifier Shelf Expiration Date Model / Serial / Lot Cath Thermodilution 6fr - [id number] Implanted:Qty: 1 on 01/24/2023 by Wilbur Rivera MD at [facility] [place] [employer] TERE [id number] 10/15/2024 [id number] / / [id number] Mirtaclip G4 - [id number] Implanted:Qty: 1 on 03/10/2023 at [facility] [place] [facility] [employer] 11/19/2023 [id number] / / [id number] Device Watchman Flx 31mm - [id number] Implanted:Qty: 1 on 07/31/2023 by Wilbur Rivera MD at [facility] [facility] [email or web address] : INTRV CARD [id number] 12/02/2025 [id number] / / [id number] documented as of this encounter Visit Diagnoses Diagnosis Persistent insomnia Persistent disorder of initiating or maintaining sleep Anxiety Anxiety state, unspecified documented in this encounter Advance Directives Documents on File Type Date Recorded Patient Bowling Pin 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 No Code Status History Code Status Date [...] Agents on File Name Relationship Healthcare Agent [facility] Care[facility] p Communication Bright [facility] Adult Child Health Care Agen t (per Health Care Power of Clay Pigeon Setter document) Care Teams Hydraulic Bull Riveter Operator Relationship Specialty Start Date End Date Grey Calvo DO [address] [place] [address] PCP - General Internal Medicine 03/24/13 documented as of this encounter
--- OUTSIDE RECORDS SUMMARY | 2023-08-14 23:32 | External Medical Summary | Summary of Care ---
Author Name Unknown Organization [facility] Address [address] [place] [address] Phone [phone] Care Team Providers Care Wheel Alignment Mechanic Name Role Phone Florentin Calvo DO Primary Care Provider [phone] Reason for Visit * Reason Onset Date Comments Medication Problem 08/01/2023 Encounter Details Date Type Department Care Team (Late st Contact Info) Description 08/01/2023 Telephone Family Practice 65 [facility] 293 [place] [address] Florentin Calvo DO 293 [place] [address] Medication Problem (/) Allergies Active Allergy Reactions Criticality Noted Date Comments Azithromycin Other (Please comment) 12/04/2021 QTC prolongation at [facility] Celecoxib Hives,Rash High 03/24/2013 Other reaction(s): Rash/Hives/Itching. [...] Dispensed Refills Start Date End Date Status VocentTouch Verio w/Device KitIndications:Type 2 diabetes mellitus with hemoglobin A1c goal of less than 7.0% ([facility]) Use up to 1 times a day. [...] Oral Tablet (Lipitor)Indication s:PVD (peripheral vascular disease) ([facility]),Type 2 diabetes mellitus with stage 3a chronic kidney disease and hypertension ([facility]) TAKE ONE TABLET BY MOUTH EVERY DAY DIRECTED 100 Tablet 3 03/31/2023 Active Ipratropium [place] 0.03 % Nasal Solution (Atrovent)Indicatio ns:Chronic rhinitis [...] bedtime. 90 Tablet 3 05/16/2023 Active Tiotropium [place]-Olodaterol 2.5-2.5 MCG/ACT Inhalation Aerosol Solution (Stiolto Respimat) [...] mitral valve clip implantation 03/06/2023 Atherosclerosis of [place] 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 02/13/2023 Last Assessment & Plan: Continue statin, sotalol. ASA History of TIA (transient ischemic attack) 11/29 Last Assessment & Plan: -Recent admission to [facility], presented with numbness of tongue and slurred [...] interval not displayed. 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 No-[place] can hear w/ hearing aid 03/07/2023 Are [...] encounter Miscellaneous Notes * Telephone Encounter - Leonardinna Jorge Veronique Neumann, [facility] - 08/04/2023 8:14 AM EST Called patient and let her know I'd leave a meter at front desk clerk to hot die picker anytime. Veronique Diamond Patel, Pharm D, BCACP Clinical Pharmacist [address] [facility] 08/04/2023, 8:16 AM Ph. [phone] * Telephone Encounter - Hilda Elizabeth RN [...] 8:40 AM EST Office Visit Nephrology, [place] [address] [place] [address] Rosario Green MD [address] [place] [place] [address] 08/22/2023 2:20 PM EST Office Visit Family Practice 65 [facility] 293 [facility] [address] Florentin Calvo DO 293 [facility], [place] [address] 09/02/2023 2:30 PM EST [facility] [place] 132 [facility] [place] [address] Michelle Hurt, RN [address] [place] [address] 09/15/2023 8:00 AM EST Appointment Cardiac Studies [facility], [place] [address] [place] [address] 09/19/2023 8:30 AM EST Procedure Only Endoscopy, [facility] [address] [place] [address] Jana Vieira, DO [address] [place] [address] 09/22/2023 3:00 PM EST Office Visit Cardiology, [facility] [address] [place] [address] Stephen Hewitt, [address] [place] [address] 10/14/2023 2:30 PM EST Office Visit Hematology/Oncology [facility] 200 [facility] [place] [address] Nereyda Metz CRNP [address] [place] [address] 10/24/2023 2:30 PM EST Office Visit Gynecology/Oncology, [place] [address] [place] [address] Vanessa Elena PA-C [address] [place] [address] 01/21/2024 2:40 PM EDT Office Visit Otolaryngology [facility] [address] [facility] [place] [address] Cheri Castillo PA-C [address] [place] [address] 06/03/2024 2:15 PM EDT Office Visit Ophthalmology, [facility] 132 [facility] [place] [address] Wilbur Benavides, DO 21 [facility] [place] [address] Health Maintenance Due Date Last Done Comments Hepatitis B (1 of 3 - Risk 3-dose series) 2000 CKD PHOS USE SMARTSET 20403 05/01/2023 09/0 02/2022, 04/03/2022, 12/05/2020, Additional history [...] Screening 05/23/2024 05/23/2023 CKD HGB USE SMARTSET 79123 07/31/202407/31, 07/31/2023, 07/24/2023, Additional history exists DXA [...] this encounter Medical Devices Implanted Type Area Professor Of Physics Device Identifier Shelf Expiration Date Model / Serial / Lot Cath Thermodilution 6fr - [id number] Implanted:Qty: 1 on 01/24/2023 by Wilbur Rivera MD at [facility] [employer] TERE [id number] 10/15/2024 [id number] / / [id number] Mirtaclip G4 - [id number] Implanted:Qty: 1 on 03/10/2023 at [facility] [employer] 11/19/2023 [id number] / / [id number] Device Watchman Flx 31mm - [id number] Implanted:Qty: 1 on 07/31/2023 by Wilbur Rivera MD at [facility] [employer] : INTRV CARD [id number] 12/02/2025 [id number] documented as of this encounter Visit Diagnoses Diagnosis Type 2 diabetes mellitus with hemoglobin A1c goal of less than 7.0% (HCC)- Primary Type 2 diabetes mellitus with polyneuropathy (HCC) Type II or unspecified type diabetes mellitus with neurological manifestations, not stated as uncontrolled documented in this encounter Advance Directives Documents on File Type Date Recorded Patient Die Cutter Diamond Expl anation Advance Directives and Living Will 11/29/2022 ADVANCE DIRECTIVE / LIVING WILL Power of Assistant Guest Services Manager 11/29/2022 POWER OF A TTORNEY Advance Directives and Living Will 10/24/2014 ADVANCE DIRECTIVE / LIVING WILL Power of Assistant Guest Services Manager 10/24/2014 POWER OF A TTORNEY Latest Code [...] the patient have Health Care Power of Assistant Guest Services Manager? No Code Status History Code Status Date [...] Agents on File Name Relationship Healthcare Agent [facility] Communication Bright [place] Adult Child Health Care Agen t (per Health Care Power of Assistant Guest Services Manager document) Care Teams Wheel Alignment Mechanic Relationship Specialty Start Date End Date Florentin Calvo DO [address] [place] [address] PCP - General Internal Medicine 03/24/13 documented as of this encounter
--- OUTSIDE RECORDS SUMMARY | 2023-08-14 23:32 | External Medical Summary | Summary of Care ---
Author Name Unknown Organization [facility] Address [address] [place] [address] Phone [phone] Care Team Providers Care Teaching Assistant Name Role Phone Grey Calvo DO Primary Care Provider [phone] Reason for Visit * Reason Onset Date Comments Medication Refill 08/03/2023 Encounter Details Date Type Department Care Team (Late st Contact Info) Description 08/01/2023 Refill [facility]inger at Home, [facility] 132 [facility] [place] [address] Michelle Hurt RN 132 [facility] [place] [address] Persistent insomnia; Anxiety Allergies Active Allergy Reactions Criticality Noted Date Comments Azithromycin Other (Please comment) 12/04/2021 QTC prolongation at [facility] Celecoxib Hives,Rash High 03/24/2013 Other reaction(s): [...] as of this encounter (statuses as of 08/03/2023) Medications Medication Sig Dispensed Refills Start Date End Date Status Schvey VerGigawatt w/Device KitIndications:Type 2 diabetes mellitus with hemoglobin A1c goal of less than 7.0% ([facility]) Use up to 1 times [...] Oral Tablet (Lipitor)Indication s:PVD (peripheral vascular disease) ([facility]),Type 2 diabetes mellitus with stage 3a chronic kidney disease and hypertension ([facility]) TAKE ONE TABLET BY MOUTH EVERY DAY DIRECTED 100 Tablet 3 03/31/2023 Active Ipratropium [place] 0.03 % Nasal Solution (Atrovent)Indicatio ns:Chronic rhinitis [...] bedtime. 90 Tablet 3 05/16/2023 Active Tiotropium [place]-Olodaterol 2.5-2.5 MCG/ACT Inhalation Aerosol Solution (Stiolto Respimat) [...] as of this encounter (statuses as of 08/03/2023) Active Problems Problem Noted Date Diagnosed Date Presence of Watchman left atrial appendage closu re device 07/31/2023 S/P mitral valve clip implantation 03/06/2023 Atherosclerosis of 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 02/13/2023 Last Assessment & Plan: Continue statin, sotalol. 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 Last Assessment & Plan: Now just using [...] as of this encounter (statuses as of 08/03/2023) Resolved Problems Problem Noted Date Diagnosed Date [...] as of this encounter (statuses as of 08/03/2023) Immunizations Name Administration Dates Next Due COVID-19 mRNA, LNP-s, No Pre serve, 2-Dose Series (Moderna) 06/23/2021,10/25/2020,09/28/2020 COVID-19, LNP-s, No Preserve , Larry-sucrose, Ages 12+ (Pfizer) 04/09/2022 COVID-19, MRNA-LNP, 23-24, P F, 30 MCG/0.3 mL, 12 YRS AND ABOVE, IM (Repairy-Comirnaty) 06/09/2023 Covid-19, Mrna, Lnp-s, Pf, B ivalent, 30 Mcg, IM, 12 yrs and above (BTI Systems) 09/10/2022 HEP A - Hepatitis A (Adult [...] or do you have serious difficulty hearing? No-TLING[place] & HAIDA can hear w/ hearing aid 03/07/2023 Are [...] Drug Monitoring Program in compliance with the [facility] regulations before prescribing a controlled substance. Last Tox Screen Results: No results found. However, due to the size of the patient record, not all encounters were searched.Please check Results Review for a complete set of results. Medication is due * Telephone Encounter - Hilda Elizabeth RN - 08/01/2023 4:06 PM EST Spoke with pt-told plavix is not in place of xanax-pt voiced understanding. States she is unsure why she was to stop xanax. Spoke with Dr Calvo-states xanax should not be stopped abruptly. OK to continue with xanax at bedtime Pt states she only uses at bedtime and only takes 1/2 tab. Needs refill-would like it sent to [facility] pended * Telephone Encounter - Grace Arnold OSA - 08/01/2023 2:46 PM EST Pt calling to ask why she would need to change from xanax to Plavix. She states she doesn't sleep without the xanax. She is asking someone return her call to advise. She can be reached at [phone] * Telephone Encounter - Grey Calvo DO [...] 8:40 AM EST Office Visit Nephrology, [facility] [address] [facility] [place] [address] Rosario Green MD 200 [facility] [place], [place] [address] 08/22/2023 2:20 PM EST Office Visit Family Practice [address], [place] [address] [place] [id number] Grey Calvo DO [address] [facility] [address] 09/02/2023 2:30 PM EST Home Visit josé migueler at [facility] 132 [facility], [place] [address] Michelle Hurt, RN [address] [place] [address] 09/15/2023 8:00 AM EST Appointment Cardiac Studies [facility], [place] [address] [place] [address] 09/19/2023 8:30 AM EST Procedure Only Endoscopy, [facility] [address] [place] [address] Jana Vieira, DO [address] [place] [address] 09/22/2023 3:00 PM EST Office Visit Cardiology, [facility] [place] [address] Stephen Hewitt, [address] [place] [address] 10/14/2023 2:30 PM EST Office Visit Hematology/Oncology [facility] 200 [facility] [place] [address] Nereyda Metz CRNP [address] [place] [address] 10/24/2023 2:30 PM EST Office Visit Gynecology/Oncology, [place] [address] [place] [address] Vanessa Elena PA-C [address] [place] [address] 01/21/2024 2:40 PM EDT Office Visit Otolaryngology [facility] [address] [place] [address] Cheri Castillo PA-C [address] [place] [address] 06/03/2024 2:15 PM EDT Office Visit Ophthalmology, [facility] [address] [place] [address] Wilbur Benavides, DO [address] [place] [address] Health Maintenance Due Date Last Done Comments Hepatitis B (1 of 3 - Risk 3-dose series) 2000 CKD PHOS USE SMARTSET 84488 05/01/2023 09/0 02/2022, 04/03/2022, 12/05/2020, Additional history exists HbA1c 08/23/2023 02/21/2023, 01/0 10/2022, 04/03/2022, Additional history exists TSH 09/24/2023 09/24/2022, 010 10/2022, 02/12/2022, Additional history exists Diabetic Foot Exam 10/01/2023 10/01/2022, 0 10/26/2021, 12/05/2020, Additional history exists GFR 01/30/2024 07/31/2023, 11/0 04/2023, 05/09/2023, Additional history exists Albumin/Creatinine Ratio 02/22/2024 023, 05/01/2022, 10/26/2021, Additional history exists Diabetic Eye Exam 05/22/2024 05/22/2023, , 05/22/2023, Additional history exists Depression Screening 05/23/2024 05/23/2023 CKD HGB USE SMARTSET 03068 07/31/202407/31, 07/31/2023, 07/24/2023, Additional history exists DXA [...] this encounter Medical Devices Implanted Type Area Associate Professor Of Engineering Device Identifier Shelf Expiration Date Model / Serial / Lot Cath Thermodilution 6fr - [id number] Implanted:Qty: 1 on 01/24/2023 by Wilbur Rivera MD at [facility] [employer] [id number] 10/15/2024 [id number] / / [id number] Mirtaclip G4 - [id number] Implanted:Qty: 1 on 03/10/2023 at [facility] [place] [employer] 11/19/2023 [id number] / / [id number] Device Watchman Flx 31mm - [id number] Implanted:Qty: 1 on 07/31/2023 by Wilbur Rivera MD at [facility] [place] [facility] [employer] : INTRV CARD [id number] 12/02/2025 [id number] documented as of this encounter Visit Diagnoses Diagnosis Persistent insomnia Persistent disorder of initiating or maintaining sleep Anxiety Anxiety state, unspecified documented in this encounter Advance Directives Documents on File Type Date Recorded Patient Imaging Technician Expl anation Advance Directives and Living Will 11/29/2022 ADVANCE DIRECTIVE / LIVING WILL Power of Direct Service Worker 11/29/2022 POWER OF A TTORNEY Advance Directives and Living Will 10/24/2014 ADVANCE DIRECTIVE / LIVING WILL Power of Direct Service Worker 10/24/2014 POWER OF A TTORNEY Latest [...] the patient have Health Care Power of Direct Service Worker? No Code Status History Code Status [...] Agents on File Name Relationship Healthcare Agent [facility] Communication Bright Barakat Adult Child Health Care Agen t (per Health Care Power of Direct Service Worker document) Care Teams Teaching Assistant Relationship Specialty Start Date End Date Grey Calvo DO [address] [place] [address] PCP - General Internal Medicine 03/24/13 documented as of this encounter
--- OUTSIDE RECORDS SUMMARY | 2023-08-14 23:32 | External Medical Summary | Summary of Care ---
Author Name Unknown Organization [facility] Address [address] [place] [address] Phone [phone] Care Team Providers Care Cattle Inspector Name Role Phone Florentin Calvo DO Primary Care Provider [phone] Reason for Visit * Reason Comments [facility]: Maintenance Encounter Details Date Type Department Care Team (Late st Contact Info) Description 08/01/2023 10:00 AM EST [facility] Visit [facility], [facility] 132 [facility] [place] [address] Michelle Hurt RN 132 [facility] [place] [address] Allergies Active Allergy Reactions Criticality Noted Date Comments Azithromycin Other (Please comment) 12/04/2021 QTC prolongation at [facility] Celecoxib Hives,Rash High 03/24/2013 Other reaction(s): [...] Dispensed Refills Start Date End Date Status LatinComicsTouch Verio w/Device KitIndications:Type 2 diabetes mellitus with hemoglobin A1c goal of less than 7.0% ([facility]) Use up to 1 times a [...] Oral Tablet (Lipitor)Indication s:PVD (peripheral vascular disease) ([facility]),Type 2 diabetes mellitus with stage 3a chronic kidney disease and hypertension ([facility]) TAKE ONE TABLET BY MOUTH EVERY DAY DIRECTED 100 Tablet 3 03/31/2023 Active Ipratropium [place] 0.03 % Nasal Solution (Atrovent)Indicatio ns:Chronic rhinitis [...] bedtime. 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 -Instructed supportive care and to call G@ if she feels she is worsening, not [...] MCG/0.3 mL, 12 YRS AND ABOVE, IM ([employer]ir[employer]) 06/09/2023 Covid-19, Mrna, Lnp-s, Pf, B ivalent, [...] Sign Reading Time Taken Comments Blood Pressure 108/60 08/01/2023 10:05 AM EST Pulse 64 08/01/2023 10:05 AM EST Temperature 36.8 C (98.2 F) 08/01/2023 10:[address] Respiratory Rate 18 08/01/2023 10:05 AM EST Oxygen Saturation 99% 08/01/2023 10:05 AM EST Inhaled Oxygen Concentration - - Weight 72.6 kg (160 lb) 08/01/2023 10:05 AM EST Height - - Body Mass Index 26.63 07/31/2023 6:08 AM EST documented in this encounter Functional Status Functional Status Response Date of Assess ment Are you deaf or do you have serious difficulty hearing? No-CHICKALOON can hear w/ hearing aid 03/07/2023 Are [...] No 03/07/2023 documented as of this encounter Progress Notes * Michelle Hurt RN - 08/01/2023 9:32 AM EST [facility] at Home Single Resource Boss Visit Date: 08/01/2023 Time: 9:33 AM Name: Inga Barakat : 1940 Current Concerns: Pt seen for return [facility] visit s/p procedure Pt had watchman device implanted yesterday Now on plavix 75mg daily Pt report she is feeling well Dressing of groin removed Small amount of dried blood noted Blood sugar unable to be obtained during visit - machine not functioning - does not appear to be from low battery - TE sent to [facility] Vitals stable No increased LE edema Wt stable at 160 lbs Lungs clear bilaterally TE sent to PCP - d/c instructions from procedure yesterday states to stop xanax - son/pt wondering why and if she can still continue nightly to help her sleep Physical Exam: BP 108/60 | Pulse 64 | Temp 36.8 C (98.2 F) | Resp 18 | Wt 72.6 kg (160 lb) | SpO2 99% | BMI 26.63 kg/m | BSA 1.82 m Pain 0 Physical Exam Constitutional: General: She is not in acute distress. Cardiovascular: Rate and Rhythm: Normal rate and regular rhythm. Pulses: Normal pulses. Heart sounds: Normal heart sounds. Pulmonary: Effort: Pulmonary effort is normal. Breath sounds: Normal breath sounds. Abdominal: General: Bowel sounds are normal. Palpations: Abdomen is soft. Musculoskeletal: Right lower leg: Edema (trace) present. Left lower leg: Edema (trace) present. Skin: General: Skin is warm and dry. Neurological: Mental Status: She is alert and oriented to person, place, and time. Problems/Symptoms: Review of Systems Constitutional: Negative. HENT: Negative. Eyes: Negative. Respiratory: Positive for shortness of breath (VELASCO - at baseline). Cardiovascular: Positive for leg swelling. Gastrointestinal: Negative. Genitourinary: Negative. Musculoskeletal: Positive for arthralgias. Skin: Positive for wound (right groin - 1cm incision). Neurological: Positive for numbness (BLE). Medication Reconciliation: (See medication list) Does patient take medications as ordered: Yes Patient Well Being: PHQ2/9: Myc Visit Accident Related Question Question 07/31/2023 8:34 PM EST - Filed by Patient Is this visit related to an accident? (i.e work, motor vehicle) No No change in living situation No falls [facility]-10 Completed this Visit: No. Routine visit and No falls since last visit Advanced Care Planning: Living Will. and Healthcare POA. Patient's Goals of Care: Less SOB Resolve leg pain and numbness Reinforcement/Education: Reviewed HF symptom monitoring: -Weigh self daily in am, post-void and record -Do not add salt to food, avoid foods high in sodium -Limit fluids to 2 liters per day -Report the following: ->2 lb weight gain in one day or 5 lbs in a week to PCP -increased edema in feet, abdomen or hands -increased SOB and cough, especially if at night -increased fatigue or vertigo Educated on home safety: Create a fall proof home Clear floors of clutter, loose wires, throw rugs, and cords. Make sure halls, stairways, and entrances are well lit. Install a nightlight in your bedroom, hallway and bathroom. Install grab bars or handrails in the bathroom and on stairs. Use a non-skid tub/shower mat. Avoid climbing on a chair; instead use a step stool with a high handrail. Keep sidewalks and steps in good repair Keep steps and sidewalks free of snow and ice. Using aids to support and prevent falls If you have poor balance or have fallen in the past, consider additional support such as a cane or walker. Use a cane with good support and that is the proper length for you. Use a walker if a cane doesnt provide enough support. Avoid medications that increase the risk of falling by causing dizziness, change in sensation or slowed reflexes. Certain medicines may cause falls - blood pressure pills, heart medicines, water pills, or sleepingpills. Be sure to understand each medicine that you are taking and any side effects that may occur. Improve your balance and flexibility with muscle strengthening exercises. Ask your health care provider for some exercises that will be right for you. Reinforced safety education and fall prevention. and Reinforced medication regimen. Timing., Dosing., and Purspose. Treatment/Plan: Weights stable- weigh three times weekly- keep log Continue medications as prescribed Keep all upcoming MD appointments Fall precautions- walker with ambulation Fluids encouraged Home Interventions Provided: Home Intervention: Other; evaluation Consulted PCP/Specialist Reinforced current Plan of Care, including self-management and medication regimen Patient's 'Red Flags': Increased SOB above baseline Wt gain of 2-3 lbs in 24 hrs or 5 lbs in one week S/s of [place] Patient Needs to Remember: Call [facility] at with any new or worsening health concerns or problems, red flag symptoms. Referrals Needed: Other none Follow Up: Is there cellular connectivity/connectivity in the home? Yes Does the patient have internet in the home? Yes Patient encouraged to call the intake phone number for all urgent but not emergent issues. Is the patient new to [facility] within the last 30 days? No, Assess appropriateness for upcoming telehealth visits. Cancel telehealth visits & schedule home visit with care hourly team members(s)as indicated. Provider is in agreement with Plan of Care: Yes Scheduled to follow up with patient in one month. Michelle Hurt RN 08/01/2023 9:33 AM documented in this encounter Plan of Treatment Upcoming Encounters Date Type Department Care Team (Late st Contact Info) Description 08/13/2023 8:40 AM EST Office Visit NephrologyJerri [address] [place] [address] Rosario Green MD [address] [place] [address] 08/22/2023 2:20 PM EST Office Visit Family Practice [address] [facility] [place] [address] [facility] [address] Florentin Calvo, DO [address] [facility] [place] [address] 09/02/2023 2:30 PM EST [facility], [facility] [address] [place] [address] Michelle Hurt RN 132 [place] [address] 09/15/2023 8:00 AM EST Appointment Cardiac Studies [facility], [address] [address] 09/19/2023 8:30 AM EST Procedure Only Endoscopy, [facility] 132 [place] [address] Jana Vieira, DO 132 [place] [address] 09/22/2023 3:00 PM EST Office Visit Cardiology, [facility] 132 [place] [address] Stephne Hewitt, 132 [place] [address] 10/14/2023 2:30 PM EST Office Visit Hematology/Oncology [facility] 200 [facility] [place] [address] Nereyda Metz CRNP [address] [place] [address] 10/24/2023 2:30 PM EST Office Visit Gynecology/Oncology, [address] [address] Vanessa Elena PA-C [address] [place] [address] 01/21/2024 2:40 PM EDT Office Visit Otolaryngology [facility] [address] [place] [address] Cheri Castillo PA-C [address] [place] [address] 06/03/2024 2:15 PM EDT Office Visit Ophthalmology, [facility] [address] [place] [address] Wilbur Benavides, DO [address] [place] [address] Health Maintenance Due Date Last Done Comments Hepatitis B (1 of 3 - Risk 3-dose series) 2000 CKD PHOS USE SMARTSET 87601 05/01/2023 090 02/2022, 04/03/2022, 12/05/2020, Additional history exists HbA1c [...] Screening 05/23/2024 05/23/2023 CKD HGB USE SMARTSET 29772 07/31/202407/31, 07/31/2023, 07/24/2023, Additional history exists DXA [...] this encounter Medical Devices Implanted Type Area Classified Advertising Supervisor Device Identifier Shelf Expiration Date Model / Serial / Lot Cath Thermodilution 6fr - [id number] Implanted:Qty: 1 on 01/24/2023 by Wilbur Rivera MD at [facility] [employer] [id number] 10/15/2024 [id number] / / [id number] Mirtaclip G4 - [id number] Implanted:Qty: 1 on 03/10/2023 at [facility] [employer] 11/19/2023 [id number] / / [id number] Device Watchman Flx 31mm - [id number] Implanted:Qty: 1 on 07/31/2023 by Wilbur Rivera MD at [facility] Hum : INTRV CARD [id number] 12/02/2025 [id number] documented as of this encounter Advance Directives Documents on File Type Date Recorded 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 No Code Status History Code Status Date [...] Agents on File Name Relationship Healthcare Agent [facility] Communication Bright [facility] Adult Child Health Care Agen t (per Health Care Power of Building Superintendent document) Care Teams Cattle Inspector Relationship Specialty Start Date End Date Florentin Calvo DO [address] [facility] [place] [address] PCP - General Internal Medicine 03/24/13 documented as of this encounter
--- OUTSIDE RECORDS SUMMARY | 2023-08-14 23:32 | External Medical Summary | Summary of Care ---
Author Name Unknown Organization [facility] Address [address] [place] [address] Phone [phone] Care Team Providers Care Spreading Machine Operator Name Role Phone Florentin Calvo DO Primary Care Provider [phone] Reason for Visit * Reason Onset Date Comments [facility]: Maintenance 08/01/2023 Encounter Details Date Type Department Care Team (Late st Contact Info) Description 08/01/2023 Telephone [facility], [facility] 132 [facility] [place] [address] Michelle Hurt RN 132 [facility] [place] [address] [facility]: Maintenance Allergies Active Allergy Reactions Criticality Noted Date Comments Azithromycin Other (Please comment) 12/04/2021 QTC prolongation at [facility] Celecoxib Hives,Rash High 03/24/2013 Other [...] Dispensed Refills Start Date End Date Status DeclaraTouch Verio w/Device KitIndications:Type 2 diabetes mellitus with hemoglobin A1c goal of less than 7.0% ([facility]) Use up to 1 times a [...] Oral Tablet (Lipitor)Indication s:PVD (peripheral vascular disease) ([facility]),Type 2 diabetes mellitus with stage 3a chronic kidney disease and hypertension ([facility]) TAKE ONE TABLET BY MOUTH EVERY DAY DIRECTED 100 Tablet 3 03/31/2023 Active Ipratropium [place] 0.03 % Nasal Solution (Atrovent)Indicatio ns:Chronic rhinitis [...] bedtime. 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 ASA History of TIA (transient ischemic attack) 11/29 Last Assessment & Plan: -Recent admission to [facility], presented with numbness of tongue [...] Obstructive sleep apnea of adult 09/09/2014 Overview: RECEPTION Last Assessment & Plan: Now just using [...] MCG/0.3 mL, 12 YRS AND ABOVE, IM (ScaleDB-ComirnatCELtrak) 06/09/2023 Covid-19, Mrna, Lnp-s, Pf, B ivalent, [...] or do you have serious difficulty hearing? 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 Veronique Patel, Pharm D, [facility] Clinical [facility] [employer] - Med[facility] 08/04/2023, 8:34 AM Ph. [phone] * Telephone Encounter - Michelle Hurt RN - 08/01/2023 10:24 AM EST Enrico Piper, Pt seen for home visit She tried to check her blood sugar this am and it would not work . I does not seem to the the battery but it after we got the blood on the strip it read "5" like it was going to count down and then shut off. We tried several times. Is there any chance she could get a new glucometer? She said it would be best to reach out to you. Thank you! documented in this encounter Plan of Treatment Upcoming Encounters Date Type Department Care Team (Late st Contact Info) Description 08/13/2023 8:40 AM EST Office Visit Nephrology, Jerri Zamora 200 [facility] [place] [address] Rosario Green MD 200 [facility] [place] [address] 08/22/2023 2:20 PM EST Office Visit Family Practice [address] [place] [address] 293 [facility] [place] [address] Florentin Calvo DO [address] [place] [address] 09/02/2023 2:30 PM EST Home Visit [facility] [place], [facility] 132 [facility] [address] [facility] [place] [address] Michelle Hurt RN 132 [facility] [place] [address] 09/15/2023 8:00 AM EST Appointment Cardiac Studies [facility], [address] [address] 09/19/2023 8:30 AM EST Procedure Only Endoscopy, [facility] [address] [place] [address] Jana Vieira, DO [address] [place] [address] 09/22/2023 3:00 PM EST Office Visit Cardiology, [facility] 132 [facility] [place] [address] Stephen Hewitt, DO 132 [facility] [place] [address] 10/14/2023 2:30 PM EST Office Visit Hematology/Oncology [facility] 200 [facility] [place] [address] Nereyda Metz CRNP [address] [place] [address] 10/24/2023 2:30 PM EST Office Visit Gynecology/Oncology, [address] [address] Vanessa Elena [place] [address] 01/21/2024 2:40 PM EDT Office Visit Otolaryngology [facility] 132 [facility] [place] [address] Cheri Castillo PA-C 132 [facility] [place] [address] 06/03/2024 2:15 PM EDT Office Visit Ophthalmology, [facility] [address] [place] [address] Wilbur Benavides, DO 21 [facility] [place] [address] Health Maintenance Due Date Last Done Comments Hepatitis B (1 of 3 - Risk 3-dose series) 2000 CKD PHOS USE SMARTSET 61452 05/01/2023 09/0 02/2022, 04/03/2022, 12/05/2020, Additional history [...] Screening 05/23/2024 05/23/2023 CKD HGB USE SMARTSET 79584 07/31/202407/31, 07/31/2023, 07/24/2023, Additional history exists DXA [...] this encounter Medical Devices Implanted Type Area Front End Developer Designer Device Identifier Shelf Expiration Date Model / Serial / Lot Cath Thermodilution 6fr - [id number] Implanted:Qty: 1 on 01/24/2023 by Wilbur Rivera MD at [facility] [employer] TERE [id number] 10/15/2024 [id number] / / [id number] Mirtaclip G4 - [id number] Implanted:Qty: 1 on 03/10/2023 at [facility] [employer] 11/19/2023 [id number] / / [id number] Device Watchman Flx 31mm - [id number] Implanted:Qty: 1 on 07/31/2023 by Wilbur Rivera MD at [facility] Granular : INTRV CARD [id number] 12/02/2025 [id number] / / [id number] documented as of this encounter Visit Diagnoses Diagnosis Type 2 diabetes mellitus with hemoglobin A1c goal of less than 7.0% (HCC)- Primary Type 2 diabetes mellitus with polyneuropathy (HCC) Type II or unspecified type diabetes mellitus with neurological manifestations, not stated as uncontrolled documented in this encounter Advance Directives Documents on File Type Date Recorded 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 No Code Status History Code Status Date [...] File Name Relationship [facility] Agent [facility] Communication Bright Yuval Adult Child Health Care Agen t (per Health Care Power of Manager Workers Compensation document) Care Teams Spreading Machine Operator Relationship Specialty Start Date End Date Florentin Calvo DO [address] [place] [address] PCP - General Internal Medicine 03/24/13 documented as of this encounter
--- OUTSIDE RECORDS SUMMARY | 2023-08-14 23:33 | External Medical Summary ---
Author Name Unknown Address Unknown Organization [id number][place] [place] [address] [facility] [address] [facility] [place] [address] Laboratory Report Ordering Provider Test Date Status PARUL DE LA CRUZ 07/31/2023 06:27:59 Final Observation Date Value Abnormality Reference (Units ) Status WBC, Total 07/31/2023 06:27:59 9.61 4.00-10.80 (K/uL) Final RBC 07/31/2023 06:27:59 3.31 3.85-5.15 (M/uL) Final Hemoglobin 07/31/2023 06:27:59 10.0 Below low normal 12.0-15.3 (g/dL) Final HCT 07/31/2023 06:27:59 32.1 Below low normal 36.0-45.2 (%) Final MCV 07/31/2023 06:27:59 97.0 81.5-97.5 (fL) Final MCH 07/31/2023 06:27:59 30.2 27.0-34.0 (pg) Final MCHC 07/31/2023 06:27:59 31.2 32.0-36.0 (g/dL) Final RDW 07/31/2023 06:27:59 16.6 11.5-15.5 (%) Final Platelets 07/31/2023 06:27:59 210 140-400 (K/uL) Final MPV 07/31/2023 06:27:59 10.9 6.6-11.1 (fL) Final Nucleated erythrocytes/100 leukocytes [Ratio] in Blood by Automated count 07/31/2023 06:27:59 0 <=0 (/100 WBCs) Final Performing Location [facility] [place] [address] [facility] [place] [address]
--- OUTSIDE RECORDS SUMMARY | 2023-08-14 23:33 | External Medical Summary ---
Author Name Unknown Address Unknown Organization [id number]:[facility] [place] [facility] - [address] [place] [address] Laboratory Report Ordering Provider Test Date Status ANTONIO EDMONDS 07/24/2023 14:16:48 Final Observation Date Value Abnormality Reference (Units ) Status SYNC LEUKOCYTES IN BLOOD BY AUTOMATED COUNT 07/24/2023 14:16:48 8.46 4.00-10.80 (K/uL) Final Segs 07/24/2023 14:16:48 69.1 40.0-75.0 (%) Final Lymphs % 07/24/2023 14:16:48 14.1 Below low normal 18.0-42.0 (%) Final Monos 07/24/2023 14:16:48 8.9 1.0-11.0 (%) Final Eosinophils 07/24/2023 14:16:48 7.7 Above high normal 0.0-6.0 (%) Final Basos 07/24/2023 14:16:48 0.2 0.0-2.0 (%) Final Absolute Segs 07/24/2023 14:16:48 5.85 1.80-7.70 (K/uL) Final Lymphs, absolute 07/24/2023 14:16:48 1.19 1.00-4.80 (K/ul) Final Monos, Abs 07/24/2023 14:16:48 0.75 0.00-1.10 (K/uL) Final Eos, Abs 07/24/2023 14:16:48 0.65 0.00-0.70 (K/uL) Final Basos, Abs 07/24/2023 14:16:48 0.02 0.00-0.20 (K/uL) Final Performing Location [facility] [place] [facility] 0 - [address] [place] [address]
--- OUTSIDE RECORDS SUMMARY | 2023-08-14 23:33 | External Medical Summary | Summary of Care ---
Author Name Unknown Organization [facility] Address [address] [place] [address] Phone [phone] Care Team Providers Care Microfiche Camera Operator Name Role Phone Florentin Calvo DO Primary Care Provider Reason for Visit * Reason Comments Outpatient Testing Encounter Details Date Type Department Care Team (Late st Contact Info) Description 07/25/2023 1:20 PM EST Laboratory Laboratory, [facility] [address] [place] [address] [facility] [address] [place] [address] Abnormal CBC Allergies Active Allergy Reactions Criticality Noted Date Comments Azithromycin Other (Please comment) 12/04/2021 QTC prolongation at [facility] Celecoxib Hives,Rash High 03/24/2013 Other reaction(s): [...] as of this encounter (statuses as of 07/25/2023) Medications Medication Sig Dispensed Refills Start Date End Date Status Property PlaceTouch Verio w/Device KitIndications:Type 2 diabetes mellitus with hemoglobin A1c goal of less than 7.0% ([facility]) Use up to 1 times a [...] (Lipitor)Indication s:PVD (peripheral vascular disease) ([facility]),Type 2 diabetes mellitus with stage 3a chronic kidney disease and hypertension ([facility]) TAKE ONE TABLET BY MOUTH EVERY DAY DIRECTED 100 Tablet 3 03/31/2023 Active Ipratropium [place] 0.03 % Nasal Solution (Atrovent)Indicatio ns:Chronic rhinitis [...] bedtime. 90 Tablet 3 05/16/2023 Active Tiotropium [place]-Olodaterol 2.5-2.5 MCG/ACT Inhalation Aerosol Solution (Stiolto Respimat) Inhale 2 Puffs by mouth in the morning. 12 g 3 05/23/2023 Active Levothyroxine Sodium 125 MCG Oral Tablet (Levoxyl) TAKE ONE TABLET BY MOUTH FIRST THING IN THE MORNING 100 Tablet 3 07/22/2023 07/21/2024 Active Hospital, Clinic, or Other Facility Administered [...] as of this encounter (statuses as of 07/25/2023) Active Problems Problem Noted Date Diagnosed Date S/P mitral valve clip implantation 03/06/2023 Atherosclerosis of [place] 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 02/13/2023 Last Assessment & Plan: Continue statin, sotalol. 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 Last Assessment & Plan: Now just using [...] as of this encounter (statuses as of 07/25/2023) Resolved Problems Problem Noted Date Diagnosed Date [...] as of this encounter (statuses as of 07/25/2023) Immunizations Name Administration Dates Next Due COVID-19 mRNA, LNP-s, No Pre serve, 2-Dose Series (Moderna) 06/23/2021,10/25/2020,09/28/2020 COVID-19, LNP-s, No Preserve , Larry-sucrose, Ages 12+ (Pfizer) 04/09/2022 COVID-19, MRNA-LNP, 23-24, P F, 30 MCG/0.3 mL, 12 YRS AND ABOVE, IM (PFIZER-Comirnat) 06/09/2023 Covid-19, Mrna, Lnp-s, Pf, B ivalent, [...] or do you have serious difficulty hearing? No-BARROW can hear w/ hearing aid 03/07/2023 Are [...] Care Team (Late st Contact Info) Description 07/31/2023 6:00 AM EST Hospital Encounter CRS Waiting [facility], Cardiac Recovery Suite Waiting Unit, H [address] [place] [address] Wilbur Rivera MD [address] [facility] [place] [address] 07/31/2023 6:00 AM EST - 07/31/2023 8:00 AM EST Surgery CRS Waiting [facility], Cardiac Recovery Suite Waiting Unit, [address] [place] [address] Wilbur Rivera MD [address] [place] [address] PERCUTANEOUS CLOSURE LEFT ATRIAL APPENDAGE IMPLANT 07/31/2023 6:00 AM EST Office Visit Cardiology [facility], [place] [address] [place] [address] [facility] Cardiac Recovery [facility] [address] [place] [address] 08/01/2023 10:00 AM EST [facility] Visit [facility] [place], [facility] [address] [place] [address] Michelle Hurt RN [address] [place] [address] 08/13/2023 8:40 AM EST Office Visit Nephrology, [facility] [address] [place] [address] GreenRosario alcantar MD [address] [place] [address] 08/22/2023 2:20 PM EST Office Visit Family Practice [address] [place] [address] 293 [place] [address] Florentin Calvo DO [address] [place] [address] 09/02/2023 2:30 PM EST Home Visit [facility] [place], [facility] [address] [place] [address] Michelle Hurt RN [address] [place] [address] 09/19/2023 8:30 AM EST Procedure Only Endoscopy, [place] 132 [facility] [place] [address] Jana Vieira, DO 132 [facility] [place] [address] 09/22/2023 3:00 PM EST Office Visit Cardiology, [facility] 132 [facility] [place] [address] Stephen Hewitt, DO 132 [facility] [place] [address] 10/14/2023 2:30 PM EST Office Visit Hematology/Oncolog y [facility] [address] [place], [place] [address] Nereyda Metz CRNP 400 [facility] [place] [address] 10/24/2023 2:30 PM EST Office Visit Gynecology/Oncolog y, [place] [address] [place] [address] Vanessa Elena PA-C [address] [place] [address] 01/21/2024 2:40 PM EDT Office Visit Otolaryngology [facility] 132 [facility] [place] [address] Cheri Castillo PA-C 132 [facility] [place] [address] 06/03/2024 2:15 PM EDT Office Visit Ophthalmology, [facility] 132 [facility] [place] [address] Wilbur Benavides, DO [facility] [place] [address] Pending Results Name Type Priority Associated Diagnoses Date /Time IRON SCREEN, INCLUDING TIBC Lab Routine Abnormal CBC 07/25/2023 1:22 PM EST FERRITIN Lab Routine Abnormal CBC 07/25/2023 1:22 PM EST FOLIC ACID Lab Routine Abnormal CBC 07/25/2023 1:22 PM EST VITAMIN B12 Lab Routine Abnormal CBC 07/25/2023 1:22 PM EST Scheduled Procedures Name Priority Associated Diagnoses Date/Ti me PERCUTANEOUS CLOSURE LEFT ATRIAL APPENDAGE IMPLANT Paroxysmal atrial fibrillation (HCC) 07/31/2023 6:00 AM EST Health Maintenance Due Date Last Done Comments Hepatitis B (1 of 3 - Risk 3-dose series) 2000 CKD PHOS USE SMARTSET 64343 05/01/2023 09/0 02/2022, 04/03/2022, 12/05/2020, Additional history exists HbA1c 08/23/2023 02/21/2023, 0 10/2022, 04/03/2022, Additional history exists TSH 09/24/2023 09/24/2022, 01/0 10/2022, 02/12/2022, Additional history exists Diabetic Foot Exam 10/01/2023 10/01/2022, 0 10/26/2021, 12/05/2020, Additional history exists GFR 01/01/2024 07/03/2023, 04/25, 04/01/2023, Additional history exists Albumin/Creatinine Ratio 02/22/2024 023, 05/01/2022, 10/26/2021, Additional history exists Diabetic Eye Exam 05/22/2024 05/22/2023, , 05/22/2023, Additional history exists Depression Screening 05/23/2024 05/23/2023 CKD HGB USE SMARTSET 72133 07/24/202407/24, 07/24/2023, 07/03/2023, Additional history exists DXA Scan 05/07/2025 05/07/2021, [...] this encounter Medical Devices Implanted Type Area Deployment Manager Device Identifier Shelf Expiration Date Model / Serial / Lot Cath Thermodilution 6fr - [id number] Implanted:Qty: 1 on 01/24/2023 by Wilbur Rivera MD at [facility] [employer] [id number] 10/15/2024 [id number] / / [id number] Mirtaclip G4 - [id number] Implanted:Qty: 1 on 03/10/[address] 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 Question Answer Comments Discussion of Advance Directives occurred with: Patient Code Status History Code Status Date Activated Date Inactivated Comments Full Code 03/06/2023 11:16 AM 03/06/2023 5:08 [...] Agents on File Name Relationship Healthcare Agent [facility] Communication Bright Barakat Adult Child Health Care Dustyn t (per Health Care Power of Manual Training Teacher document) Care Teams Microfiche Camera Operator Relationship Specialty Start Date End Date Florentin Calvo DO [address] [place] [address] PCP - General Internal Medicine 03/24/13 documented as of this encounter
--- OUTSIDE RECORDS SUMMARY | 2023-08-14 23:33 | External Medical Summary | Summary of Care ---
Author Name Unknown Organization [facility] Address [address] [place] [address] Phone [phone] Care Team Providers Care Thermodynamicist Name Role Phone Florentin Calvo DO Primary Care Provider [phone] Reason for Visit * Reason Onset Date Comments Test Results 07/24/202307/24 Encounter Details Date Type Department Care Team (Late st Contact Info) Description 07/24/2023 Telephone Family Practice [facility] [address] [place] [address] Florentin Calvo DO [address] [place] [address] Test Results (07/24) Allergies Active Allergy Reactions Criticality Noted Date Comments Azithromycin Other (Please comment) 12/04/2021 QTC prolongation at [facility] Celecoxib Hives,Rash High 03/24/2013 Other reaction(s): [...] as of this encounter (statuses as of 07/24/2023) Medications Medication Sig Dispensed Refills Start Date End Date Status Zubican VerExtricom w/Device KitIndications:Type 2 diabetes mellitus with hemoglobin A1c goal of less than 7.0% ([facility]) Use up to 1 times [...] Oral Tablet (Lipitor)Indication s:PVD (peripheral vascular disease) ([facility]),Type 2 diabetes mellitus with stage 3a chronic kidney disease and hypertension ([facility]) TAKE ONE TABLET BY MOUTH EVERY DAY DIRECTED 100 Tablet 3 03/31/2023 Active Ipratropium [place] 0.03 % Nasal Solution (Atrovent)Indicatio ns:Chronic rhinitis [...] bedtime. 90 Tablet 3 05/16/2023 Active Tiotropium [place]-Olodaterol 2.5-2.5 MCG/ACT Inhalation Aerosol Solution (Stiolto Respimat) [...] as of this encounter (statuses as of 07/24/2023) Active Problems Problem Noted Date Diagnosed Date S/P mitral valve clip implantation 03/06/2023 Atherosclerosis of [place] 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 02/13/2023 Last Assessment & Plan: Continue statin, sotalol. 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 & Plan: Now just [...] as of this encounter (statuses as of 07/24/2023) Resolved Problems Problem Noted Date Diagnosed Date [...] as of this encounter (statuses as of 07/24/2023) Immunizations Name Administration Dates Next Due COVID-19 mRNA, LNP-s, No Pre serve, 2-Dose Series (Moderna) 06/23/2021,10/25/2020,09/28/2020 COVID-19, LNP-s, No Preserve , Larry-sucrose, Ages 12+ (Pfizer) 04/09/2022 COVID-19, MRNA-LNP, 23-24, P F, 30 MCG/0.3 mL, 12 YRS AND ABOVE, IM ([facility] 06/09/2023 Covid-19, Mrna, Lnp-s, Pf, B ivalent, [...] or do you have serious difficulty hearing? No-NORTHWAY can hear w/ hearing aid 03/07/2023 Are [...] encounter Miscellaneous Notes * Telephone Encounter - Hilda Awad LPN - 07/24/2023 4:56 PM EST Patient is aware and will comply. Thank you * Telephone Encounter - Hilda Awad LPN - 07/24/2023 4:54 PM EST ----- Message from Florentin Calvo DO sent at 07/24/2023 3:55 PM EST ----- Check iron screen, Ferritin, B 12 and Folate documented in this encounter Plan of Treatment Upcoming Encounters Date Type Department Care Team (Late st Contact Info) Description 07/31/2023 6:00 AM EST Hospital Encounter CRS Waiting [facility], Cardiac Recovery Suite Waiting Unit, H [address] [place] [address] Wilbur Rivera MD [address] [place] [address] 07/31/2023 6:00 AM EST - 07/31/2023 8:00 AM EST Surgery CRS Waiting [facility], Cardiac Recovery Suite Waiting Unit, H [address] [place] [address] Wilbur Rivera MD [address] [place] [address] PERCUTANEOUS CLOSURE LEFT ATRIAL APPENDAGE IMPLANT 07/31/2023 6:00 AM EST [facility] [address] [place] [address] [facility] [address] [facility] [address] [place] [address] 08/01/2023 10:00 AM EST [facility] [address] [place] [address] Michelle Hurt, RN [address] [place] [address] 08/13/2023 8:40 AM EST Office Visit Nephrology, [facility] [address] [place] [address] Rosario Green MD [address] [place] [address] 08/22/2023 2:20 PM EST Office Visit Family Practice [facility] [address] [place] [address] Florentin Calvo, DO 293 [place] [address] 09/02/2023 2:30 PM EST [facility], [facility] 132 [facility] [place] [address] Michelle Hurt, RN 132 [facility] [address] 09/19/2023 8:30 AM EST Procedure Only Endoscopy, [facility] 132 [facility] [place] [address] Jana Vieira, DO [address] [facility] [address] 09/22/2023 3:00 PM EST Office Visit Cardiology, [facility] 132 [facility] [place] [address] Stephen Hewitt, DO 132 [facility] [address] 10/14/2023 2:30 PM EST Office Visit Hematology/Oncolog y [facility] [place] [place] [address] Nereyda Metz CRNP 400 [facility] [place] [address] 10/24/2023 2:30 PM EST Office Visit Gynecology/Oncolog y, [place] [address] [place], [place] [address] Vanessa Elena PA-C [address] [place] [address] 01/21/2024 2:40 PM EDT Office Visit Otol[facility]ology [facility] [place] [address] Cheri Castillo PA-C 132 [facility] [place] [address] 06/03/2024 2:15 PM EDT Office Visit Ophthalmology, [facility] [place] [address] Wilbur Benavides DO [facility] [place] [address] Scheduled Orders Name Type Priority Associated Diagnoses Orde r Schedule IRON SCREEN, INCLUDING TIBC Lab Routine Abnormal CBC Expected: 07/24/2023 (Approximate), Expires: 07/23/2024 FERRITIN Lab Routine Abnormal CBC Expected: 07/24/2023 (Approximate), Expires: 07/23/2024 FOLIC ACID Lab Routine Abnormal CBC Expected: 07/24/2023 (Approximate), Expires: 07/23/2024 VITAMIN B12 Lab Routine Abnormal CBC Expected: 07/24/2023 (Approximate), Expires: 07/23/2024 Scheduled Procedures Name Priority Associated Diagnoses Date/Ti me PERCUTANEOUS CLOSURE LEFT ATRIAL APPENDAGE IMPLANT Paroxysmal atrial fibrillation (HCC) 07/31/2023 6:00 AM EST Health Maintenance Due Date Last Done Comments Hepatitis B (1 of 3 - Risk 3-dose series) 2000 CKD PHOS USE SMARTSET 39610 05/01/2023 09/0 02/2022, 04/03/2022, 12/05/2020, Additional history [...] Screening 05/23/2024 05/23/2023 CKD HGB USE SMARTSET 97680 07/24/202407/24, 07/24/2023, 07/03/2023, Additional history exists DXA [...] encounter Medical Devices Implanted Type Area Office Executive Device Identifier Shelf Expiration Date Model / Serial / Lot Cath Thermodilution 6fr - [id number] Implanted:Qty: 1 on 01/24/2023 by Wilbur Rivera MD at [facility] LAB[facility] [employer] T[employer] [id number] 10/15/2024 [id number] / / [id number] Mirtaclip G4 - [id number] Implanted:Qty: 1 on 03/10/2023 at [facility] [employer] 11/19/2023 [id number] / / [id number] documented as of this encounter Visit Diagnoses Diagnosis Paroxysmal atrial fibrillation (HCC)- Primary Atrial fibrillation Abnormal CBC- Primary Other abnormal blood chemistry Paroxysmal atrial fibrillation (HCC) Atrial fibrillation documented in this encounter Advance Directives Documents on File Type Date 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 Advance Directives and Living Will 11/29/2022 ADVANCE DIRECTIVE / LIVING WILL Power of Paragliding Instructor 11/29/2022 POWER OF A TTORNEY Advance Directives and Living Will 10/24/2014 ADVANCE DIRECTIVE / LIVING WILL Power of Paragliding Instructor 10/24/2014 POWER OF A TTORNEY Latest Code [...] Agents on File Name Relationship Healthcare Agent [facility] Bright [facility] Adult Child Health Care Agen t (per Health Care Power of Paragliding Instructor document) Care Teams Thermodynamicist Relationship Specialty Start Date End Date Florentin Calvo DO [address] [place] [address] PCP - General Internal Medicine 03/24/13 documented as of this encounter
--- OUTSIDE RECORDS SUMMARY | 2023-08-14 23:33 | External Medical Summary | Summary of Care ---
Author Name Unknown Organization [facility] Address [address] [place] [address] Phone [phone] Care Team Providers Care Dynamo Tender Name Role Phone Florentin Calvo DO Primary Care Provider [phone] Encounter Details Date Type Department Care Team (Late st Contact Info) Description 04/25/2023 Telephone OR [facility], Operating Room [facility] [address] [place] [address] Jana Vieira DO [address] [place] [address] Allergies Active Allergy Reactions Criticality Noted Date Comments Azithromycin Other (Please comment) 12/04/2021 QTC prolongation at [facility] Celecoxib Hives,Rash High 03/24/2013 Other reaction(s): [...] Dispensed Refills Start Date End Date Status Nu-Med PlusTouch Verio w/Device KitIndications:Typ e 2 diabetes mellitus with hemoglobin A1c goal of less than 7.0% ([facility]) Use up to 1 times a day. E11.9 1 Kit 0 06/19/2021 Active Aspirin 81 MG Oral Tablet Delayed Release Take 1 Tablet by mouth daily. 0 Active Acetaminophen 325 MG Oral Tablet (Tylenol) Take 2 Tablets by mouth every 6 hours as needed. 100 Tablet 0 12/04/2021 Active Vitamin D3 50 MCG (1999 UT) Oral CapsuleIndications :Vitamin D deficiency Take [...] Oral Tablet (Lipitor)Indicatio ns:PVD (peripheral vascular disease) ([facility]),Type 2 diabetes mellitus with stage 3a chronic kidney disease and hypertension ([facility]) TAKE ONE TABLET BY MOUTH EVERY DAY DIRECTED 100 Tablet 3 03/31/2023 Active Ipratropium [place] 0.03 % Nasal Solution (Atrovent)Indicati ons:Chronic rhinitis Administer 2 Sprays into nostril in the morning and 2 Sprays before bedtime. 90 mL 3 04/01/2023 Active Sotalol HCl 80 MG Oral Tablet (Betapace)Indicati ons:Paroxysmal atrial fibrillation (HCC) Take 0.5 Tablets by mouth in the morning and 0.5 Tablets before bedtime. 300 Tablet 3 04/10/2023 Active Allopurinol 100 MG Oral Tablet (Zyloprim)Indicati ons:Gout, arthropathy Take 2 Tablets by mouth at bedtime. 60 Tablet 11 10/03/2022 3 Discontinued (Refill) Fluticasone-Salmet wero 250-50 MCG/ACT Inhalation Aerosol Powder Breath Activated (Advair Diskus) Inhale 1 Puff by mouth in the morning and 1 Puff before bedtime. 60 Each 2 12/12/2022 3 Discontinued (Medication/ Dose Changed) Pantoprazole Sodium 40 MG Oral Tablet Delayed Release (Protonix) Take 1 Tablet by mouth in the morning and 1 Tablet in the evening. 60 Tablet 5 01/02/2023 3 Discontinued (Refill) Levothyroxine Sodium 125 MCG Oral Tablet (Levoxyl) TAKE ONE TABLET BY MOUTH FIRST THING IN THE MORNING 100 Tablet 1 01/31/2023 3 Discontinued (Refill) ALPRAZolam 0.5 MG Oral Tablet (xaNAX)Indications :Persistent insomnia,Anxiety TAKE ONE TABLET BY MOUTH AT BEDTIME NEEDED FOR SLEEP OR ANXIETY USES HALF OF A TABLET NEEDED FOR ANXIETY AND SLEEP 90 Tablet 0 01/17/2023 3 OneTouch Delica Plus Herola40X USE 2 TIMES A DAY DIRECTED 200 Each 3 04/30/2022 3 Hospital, Clinic, or Other Facility Administered Medication [...] (Proventil) (2.5 MG/3ML) 0.083% inhalation solution 2.5 mgIndications:Paroxysma l atrial fibrillation (HCC),Hyperkalemia,Asth ma with severity to be determined,Pulmonary hypertension (HCC),Typical atrial flutter (HCC) 2.5 mg NEBULIZER PRN 06/21/2022 06/21/2023 Ended Albuterol Sulfate (Proventil) (5 MG/ML) 0.5% *conc* inhalation solution 2.5 mgIndications:Paroxysma l atrial fibrillation (HCC),Hyperkalemia,Asth ma with severity to be determined,Pulmonary hypertension (HCC),Typical atrial flutter (HCC) 2.5 mg NEBULIZER PRN 06/21/2022 06/21/2023 Ended documented as of this encounter (statuses as of 07/25/2023) Active Problems Problem Noted Date Diagnosed Date S/P mitral valve clip implantation 03/06/2023 Atherosclerosis of [place] 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 02/13/2023 Last Assessment & Plan: Continue statin, sotalol. 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 Last Assessment & Plan: Now just using [...] Preserve , Larry-sucrose, Ages 12+ (Pfizer) 04/09/2022 Covid-19, Mrna, Lnp-s, Pf, B ivalent, 30 Mcg, IM, 12 yrs and above (Pfizer) 09/10/2022 HEP A - Hepatitis A (Adult > 18 yrs) 03/15/2004, 07/29/2003 Pneumococcal Conjugate Vacc, 13 Valent (Prevnar) 09/21/2015 Pneumococcal Polysaccharide PPV23 (Pneumovax) 05/25/2012,07/25/2007 SEASONAL INFLUENZA, PF, 6 M & Above, IM , (FLULAVAL or FLUZONE) 04/28/2018,05/28/2017 Seasonal Influenza Virus Vac cine, Unspecified Formulation 05/22/2021 Seasonal Influenza, Quadriva lent Hd (Fluzone Hd) 05/15/2022 Seasonal Influenza, Quadriva lent Hd, 65+ Yrs [...] or do you have serious difficulty hearing? No-AUGUSTINE can hear w/ hearing aid 03/07/2023 Are [...] encounter Miscellaneous Notes * Telephone Encounter - Edith Barrios RN - 04/25/2023 10:28 AM EDT Due to current cardiac status and planned watchman procedure patient is not a candidate for procedure to be performed at [facility]. Spoke with patient and made her aware. She requests I call daughter Kathy at [phone] as Kathy is her transportation. Call transferred to [place] documented in this encounter Plan of Treatment Upcoming Encounters Date Type Department Care Team (Late st Contact Info) Description 07/31/2023 6:00 AM [facility] Hospital Encounter CRS Waiting [facility], Cardiac Recovery Suite Waiting Unit, H [address] [place] [address] Wilbur Rivera MD [address] [place] [address] 07/31/2023 6:00 AM EST - 07/31/2023 8:00 AM EST Surgery CRS Waiting [facility], Cardiac Recovery Suite Waiting Unit, H [address] [facility] [place] [address] Wilbur Rivera MD [address] [place] [address] PERCUTANEOUS CLOSURE LEFT ATRIAL APPENDAGE IMPLANT 07/31/2023 6:00 AM EST Office Visit Cardiology [facility] [address] [facility] [place] [address] [place], Cardiac Recovery [place] [address] [place] [facility] [address] 08/01/2023 10:00 AM EST [facility], [facility] 132 [facility] [place] [address] Michelle Hurt, RN [address] [place] [address] 08/13/2023 8:40 AM EST Office Visit Nephrology, [facility] 200 [facility] [place] [address] Rosario Green MD 200 [facility] [place] [address] 08/22/2023 2:20 PM EST Office Visit Family Practice [address] [place] [address] 293 [facility] [address] Florentin Calvo, DO 293 [place] [address] 09/02/2023 2:30 PM EST Home Visit [facility], [facility] 132 [facility] [place], [place] [address] Michelle Hurt, RN 132 [facility] [place] [address] 09/19/2023 8:30 AM EST Procedure Only Endoscopy, [facility] [address] [facility] [place] [address] Jana Vieira, DO [address] [place] [address] 09/22/2023 3:00 PM EST Office Visit Cardiology, [facility] [address] [facility] [place] [address] Stephen Hewitt, DO [address] [place] [address] 10/14/2023 2:30 PM EST Office Visit Hematology/Oncolog y [facility] [place] [address] [place] [address] Nereyda Metz CRNP 400 [facility] [place] [address] 10/24/2023 2:30 PM EST Office Visit Gynecology/Oncolog y, [place] [address] [place] [address] Vanessa Elena PA-C [address] [place], [place] [address] 01/21/2024 2:40 PM EDT Office Visit Otolaryngology [facility] [address] Cheri Castillo PA-C [facility] [address] 06/03/2024 2:15 PM EDT Office Visit Ophthalmology, [facility] [address] Wilbur [facility]avides DO [facility] [place] [id number] Scheduled Procedures Name Priority Associated Diagnoses Date/Ti me PERCUTANEOUS CLOSURE LEFT ATRIAL APPENDAGE IMPLANT Paroxysmal atrial fibrillation (HCC) 07/31/2023 6:00 AM EST Health Maintenance Due Date Last Done Comments Hepatitis B (1 of 3 - Risk 3-dose series) 2000 CKD PHOS USE SMARTSET 35356 05/01/202302/2022, 04/03/2022, 12/05/2020, Additional history exists HbA1c 08/23/2023 02/21/2023, 10/2022, 04/03/2022, Additional history exists TSH 09/24/2023 09/24/2022, 10/2022, 02/12/2022, Additional history exists Diabetic Foot Exam 10/01/2023 10/01/2022, 0 10/26/2021, 12/05/2020, Additional history exists GFR 01/01/2024 07/03/2023, 04/25, 04/01/2023, Additional history exists Albumin/Creatinine Ratio 02/22/2024 023, 05/01/2022, 10/26/2021, Additional history exists Diabetic Eye Exam 05/22/2024 05/22/2023, , 05/22/2023, Additional history exists Depression Screening 05/23/2024 05/23/2023 CKD HGB USE SMARTSET 09739 07/24/202407/24, 07/24/2023, 07/03/2023, Additional history exists DXA [...] this encounter Medical Devices Implanted Type Area Reliability Engineer Device Identifier Shelf Expiration Date Model / Serial / Lot Cath Thermodilution 6fr - [id number] Implanted:Qty: 1 on 01/24/2023 by Wilbur Rivera MD at [facility]S [facility] [employer] [id number] 10/15/2024 [id number] / / [id number] Mirtaclip G4 - [id number] Implanted:Qty: 1 on 03/10/2023 at [facility] 11/19/2023 [id number] / / [id number] documented as of this encounter Advance Directives Documents on File Type Date Recorded Patient Call Manager Expl anation Advance Directives and Living Will 11/29/2022 ADVANCE DIRECTIVE / LIVING WILL Power of Disaster Recovery Specialist 11/29/2022 POWER OF A TTORNEY Advance Directives and Living Will 10/24/2014 ADVANCE DIRECTIVE / LIVING WILL Power of Disaster Recovery Specialist 10/24/2014 POWER OF A TTORNEY Latest Code [...] Relationship Healthcare Agent Relationshi p Communication Bright [place]ak[place] Adult Child Health Care Agen t (per Health Care Power of Disaster Recovery Specialist document) Care Teams Dynamo Tender Relationship Specialty Start Date End Date Florentin Calvo DO [address] [place] [address] PCP - General Internal Medicine 03/24/13 documented as of this encounter
--- OUTSIDE RECORDS SUMMARY | 2023-08-14 23:33 | External Medical Summary ---
Author Name Unknown Address Unknown Organization K01:LABORATORY C - [address] [facility] [address] Laboratory Report Ordering Provider Test Date Status PARUL DE LA CRUZ 07/31/2023 06:27:59 Final Observation Date Value Abnormality Reference (Units ) Status BUN 07/31/2023 06:27:59 50 Above high normal 6-20 (mg/dL) Final Creatinine 07/31/2023 06:27:59 1.7 Above high normal 0.5-1.0 (mg/dL) Final Glomerular filtration rate/1.73 sq M.predicted [Volume Rate/Area] in Serum, Plasma or Blood by Creatinine-based formula (CKD-EPI) 07/31/2023 06:27:59 30 Below low normal >=60 (mL/min) Final eGFR is calculated based on the CKD-EPI 2020 equation SODIUM 07/31/2023 06:27:59 135 135-146 (m mol/L) Final Potassium 07/31/2023 06:27:59 4.5 3.5-5.1 (m mol/L) Final Cl 07/31/2023 06:27:59 101 98-107 (mm ol/L) Final CO2 07/31/2023 06:27:59 23 22-32 (mmo l/L) Final Anion gap 07/31/2023 06:27:59 11 7-15 (mmol /L) Final Glucose 07/31/2023 06:27:59 138 Above high normal 70 -120 (mg/dL) Final Albumin 07/31/2023 06:27:59 3.9 3.8-5.0 (g /dL) Final AST (Aspartate aminotransferase) 07/31/2023 06:27:59 61 Above high normal 10-35 (U/L) Final Result may be falsely elevat ed due to hemolysis. Alk Phos 07/31/2023 06:27:59 194 Above high normal 35 -130 (U/L) Final Bilirubin, Total 07/31/2023 06:27:59 0.3 <=1 .2 (mg/dL) Final Calcium 07/31/2023 06:27:59 9.7 8.4-10.2 ( mg/dL) Final Protein 07/31/2023 06:27:59 6.9 6.0-8.3 (g /dL) Final ALT (Alanine aminotransferase) 07/31/2023 06:27:59 32 10-35 (U/L) Tarik polo Performing Location [facility] [address]. [facility] [address]
--- OUTSIDE RECORDS SUMMARY | 2023-08-14 23:33 | External Medical Summary ---
Author Name Unknown Address Unknown Organization K0G:LABORATORY [facility] EPIFANIO [address] - [address] [place] [address] Laboratory Report Ordering Provider Test Date Status ANTONIO EDMONDS 07/24/2023 14:16:48 Final Observation Date Value Abnormality Reference (Units ) Status WBC, Total 07/24/2023 14:16:48 8.46 4.00-10.8 0 (K/uL) Final RBC 07/24/2023 14:16:48 3.51 3.85-5.15 (M/uL) Final Hemoglobin 07/24/2023 14:16:48 10.7 Below low normal 12 .0-15.3 (g/dL) Final HCT 07/24/2023 14:16:48 33.1 Below low normal 36. 0-45.2 (%) Final MCV 07/24/2023 14:16:48 94.3 81.5-97.5 (fL) Final MCH 07/24/2023 14:16:48 30.5 27.0-34.0 (pg) Final MCHC 07/24/2023 14:16:48 32.3 32.0-36.0 (g/dL) Final RDW 07/24/2023 14:16:48 16.7 11.5-15.5 (%) Final Platelets 07/24/2023 14:16:48 209 140-400 (K /uL) Final MPV 07/24/2023 14:16:48 9.9 6.6-11.1 ( fL) Final Performing Location [facility] - [address] [place] [address]
--- OUTSIDE RECORDS SUMMARY | 2023-08-14 23:33 | External Medical Summary ---
Author Name Unknown Address Unknown Organization : Laboratory Report Ordering Provider Test Date Status GARRY BARCENAS 07/31/2023 08:35:38 Final NORMAL (NON-HEPARINIZED) 74- 137 SECONDS
HEPARINIZED 200+ SECONDS
CRITICAL GREATER THAN 1000 SECONDS
null Observation Date Value Abnormality Reference (Units ) Status Kaolin activated time [Units/volume] in Blood 07/31/2023 08:35:38 255 50-1000 (secs) Final Performing Location
--- OUTSIDE RECORDS SUMMARY | 2023-08-14 23:33 | External Medical Summary | Summary of Care ---
Author Name Unknown Organization [facility] Address [address] [place] [address] Phone [phone] Care Team Providers Care Psychiatric Technician Assistant Name Role Phone Florentin Calvo DO Primary Care Provider [phone] Reason for Visit * Reason Comments Outpatient Testing Encounter Details Date Type Department Care Team (Late st Contact Info) Description 07/24/2023 2:10 PM EST Laboratory Laboratory, [facility] [address] [place] [address] [facility] [address] [place] [address] Bloody stool Allergies Active Allergy Reactions Criticality Noted Date Comments Azithromycin Other (Please comment) 12/04/2021 QTC prolongation at [facility] Celecoxib Hives,Rash High 03/24/2013 Other reaction(s): Rash/Hives/Itching. [...] Dispensed Refills Start Date End Date Status Axonia MedicalTouch Verio w/Device KitIndications:Type 2 diabetes mellitus with hemoglobin A1c goal of less than 7.0% ([facility]) Use up to 1 times [...] Oral Tablet (Lipitor)Indication s:PVD (peripheral vascular disease) ([facility]),Type 2 diabetes mellitus with stage 3a chronic kidney disease and hypertension ([facility]) TAKE ONE TABLET BY MOUTH EVERY DAY DIRECTED 100 Tablet 3 03/31/2023 Active Ipratropium [place] 0.03 % Nasal Solution (Atrovent)Indicatio ns:Chronic rhinitis [...] bedtime. 90 Tablet 3 05/16/2023 Active Tiotropium [place]-Olodaterol 2.5-2.5 MCG/ACT Inhalation Aerosol Solution (Stiolto Respimat) [...] mitral valve clip implantation 03/06/2023 Atherosclerosis of 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 02/13/2023 Last Assessment & Plan: Continue statin, sotalol. 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 Last Assessment & Plan: Now just using [...] MCG/0.3 mL, 12 YRS AND ABOVE, IM [facility] 06/09/2023 Covid-19, Mrna, Lnp-s, Pf, B [...] 6:00 AM EST Hospital Encounter CRS Waiting [facility] Card[facility] Recovery Suite Waiting Unit, H [address] [place] [address] Wilbur Rivera MD [address] [place] [address] 07/31/2023 6:00 AM EST - 07/31/2023 8:00 AM EST Surgery CRS Waiting [facility] Cardiac Recovery Suite Waiting Unit, [address] [place] [address] Wilbur Rivera MD [address] [place] [address] PERCUTANEOUS CLOSURE LEFT ATRIAL APPENDAGE IMPLANT 07/31/2023 6:00 AM EST Office Visit Cardiology [facility], [place] [address] [place] [address] [facility] [address] [place] [address] 08/01/2023 10:00 AM EST [facility] Visit [facility] [place], [facility] [address] [place] [address] Michelle Hurt RN [address] [place] [address] 08/13/2023 8:40 AM EST Office Visit Nephrology, [facility] [address] [place] [address] GreenRosario alcantar MD [address] [place] [address] 08/22/2023 2:20 PM EST Office Visit Family Practice [address] [place] [address] [address] [place] [address] Florentin Calvo DO [address] [place] [address] 09/02/2023 2:30 PM EST [facility] Visit [facility], [facility] [address] [place] [address] Michelle Hurt, RN [address] [place] [address] 09/19/2023 8:30 AM EST Procedure Only Endoscopy, [facility] 132 [facility] [place] [address] Jana Vieira, DO 132 [facility] [place] [address] 09/22/2023 3:00 PM EST Office Visit Cardiology, [facility] 132 [facility] [place] [address] Stephen Hewitt, DO 132 [facility] [place] [address] 10/14/2023 2:30 PM EST Office Visit Hematology/Oncolog y [facility] [address] [place], [place] [address] Nereyda Metz CRNP 400 [facility] [place] [address] 10/24/2023 2:30 PM EST Office Visit Gynecology/Oncolog y, [place] [address] [place] [address] Vanessa Elena PA-C [address] [place] [address] 01/21/2024 2:40 PM EDT Office Visit Otolaryngology [facility] 132 [facility] [place] [address] Cheri Castillo PA-C 132 [facility] [place] [address] 06/03/2024 2:15 PM EDT Office Visit Ophthalmology, [facility] 132 [facility] [place] [address] Wilbur Benavides, DO [facility] [place] [address] Scheduled Procedures Name Priority Associated Diagnoses Date/Ti me PERCUTANEOUS CLOSURE LEFT ATRIAL APPENDAGE IMPLANT Paroxysmal atrial fibrillation (HCC) 07/31/2023 6:00 AM EST Health Maintenance Due Date Last Done Comments Hepatitis B (1 of 3 - Risk 3-dose series) 2000 CKD PHOS USE SMARTSET 51134 05/01/2023 09/0 02/2022, 04/03/2022, 12/05/2020, Additional history [...] Screening 05/23/2024 05/23/2023 CKD HGB USE SMARTSET 67210 07/03/202407/24, 07/24/2023, 07/03/2023, Additional history exists DXA Scan [...] this encounter Medical Devices Implanted Type Area Ballroom Dance Instructor Device Identifier Shelf Expiration Date Model / Serial / Lot Cath Thermodilution 6fr - [id number] Implanted:Qty: 1 on 01/24/2023 by Wilbur Rivera MD at [facility] [employer] T[employer] [id number] 10/15/2024 [id number] / / [id number] Mirtaclip G4 - [id number] Implanted:Qty: 1 on 03/10/2023 at [facility] [employer] 11/19/2023 [id number] / / [id number] documented as of this encounter Procedures Procedure Name Priority Date/Time Associated Diagnosis Comments DIFFERENTIAL, AUTOMATED Routine 07/24/2023 2:16 PM EST Bloody stool CBC Routine 07/24/2023 2:16 PM EST Bloody stool CBC Routine 07/24/2023 2:16 PM EST Bloody stool documented in this encounter Results * (ABNORMAL) DIFFERENTIAL, AUTOMATED (07/24/2023 2:16 PM EST) WBC 8.46 4.00 - 10.80 K/uL 07/24/2023 2:25 PM EST [facility] [place]10 Neutrophils % 69.1 40.0 - 75.0 % 07/24/2023 2:25 PM EST [facility] Lymphocytes % 14.1(L) 18.0 - 42.0 % 07/24/2023 2:25 PM EST [facility] Monocytes % 8.9 1.0 - 11.0 % 07/24/2023 2:25 PM EST [facility] Eosinophils % 7.7(H) 0.0 - 6.0 % 07/24/2023 2:25 PM EST [facility] Basophils % 0.2 0.0 - 2.0 % 07/24/2023 2:25 PM EST [facility]10 Absolute Neutrophils 5.85 1.80 - 7.70 K/uL 07/24/2023 2:25 PM EST [facility]10 Absolute Lymphocytes 1.19 1.00 - 4.80 K/ul 07/24/2023 2:25 PM EST [facility]10 Absolute Monocytes 0.75 0.00 - 1.10 K/uL 07/24/2023 2:25 PM EST [facility] Absolute Eosinophils 0.65 0.00 - 0.70 K/uL 07/24/2023 2:25 PM EST [facility]10 Absolute Basophils 0.02 0.00 - 0.20 K/uL 07/24/2023 2:25 PM EST [facility]10 Blood Venous blood specimen / Unknown Venipuncture / Unknown 07/24/2023 2:16 PM EST 07/24/2023 2:16 PM EST Florentin Calvo DO LAB BLOOD ORDERABLES [facility] [address] [place] [address] * (ABNORMAL) CBC (07/24/2023 2:16 PM EST) WBC 8.46 4.00 - 10.80 K/uL 07/24/2023 2:25 PM EST [facility] RBC 3.51 3.85 - 5.15 M/uL 07/24/2023 2:25 PM EST [facility]10 HGB 10.7(L) 12.0 - 15.3 g/dL 07/24/2023 2:25 PM EST [facility]10 HCT 33.1(L) 36.0 - 45.2 % 07/24/2023 2:25 PM EST [facility] MCV 94.3 81.5 - 97.5 fL 07/24/2023 2:25 PM EST [facility]10 MCH 30.5 27.0 - 34.0 pg 07/24/2023 2:25 PM EST [facility]10 MCHC 32.3 32.0 - 36.0 g/dL 07/24/2023 2:25 PM EST [facility]10 RDW 16.7 11.5 - 15.5 % 07/24/2023 2:25 PM EST [facility]10 PLT 209 140 - 400 K/uL 07/24/2023 2:25 PM EST [facility]10 MPV 9.9 6.6 - 11.1 fL 07/24/2023 2:25 PM EST [facility] 57[facility]10 Blood Venous blood specimen / Unknown Venipuncture / Unknown 07/24/2023 2:16 PM EST 07/24/2023 2:16 PM EST Florentin Calvo DO LAB BLOOD ORDERABLES [facility] [place] 57-10 [address] [place] [address] documented in this encounter Visit Diagnoses Diagnosis Paroxysmal atrial fibrillation (HCC)- Primary Atrial fibrillation Bloody stool Blood in stool Paroxysmal atrial fibrillation (HCC) Atrial fibrillation documented in this encounter Advance Directives Documents on File Type Date Recorded Patient Horticultural Therapist Expl anation Advance Directives and Living Will 11/29/2022 ADVANCE DIRECTIVE / LIVING WILL Power of Tack Welder 11/29/2022 POWER OF A TTORNEY Advance Directives and Living Will 10/24/2014 ADVANCE DIRECTIVE / LIVING WILL Power of Tack Welder 10/24/2014 POWER OF A TTORNEY Latest Code [...] Agents on File Name Relationship Healthcare Agent [facility] Child Health Care Agen t (per Health Care Power of Tack Welder document) Care Teams Psychiatric Technician Assistant Relationship Specialty Start Date End Date Florentin Calvo DO [address] [place] [address] PCP - General Internal Medicine 03/24/13 documented as of this encounter
--- OUTSIDE RECORDS SUMMARY | 2023-08-14 23:33 | External Medical Summary ---
Author Name Unknown Address Unknown Organization [id number]:LABORATORY [facility] - [address] [place] [address] Laboratory Report Ordering Provider Test Date Status PARUL DE LA CRUZ 07/31/2023 10:43:00 Final Warfarin Therapy
INR: 2 .0-3.0 conventional anticoagulation
INR: 2.5- 3.5 high intensity anticoagulation Observation Date Value Abnormality Reference (Units ) Status PT 07/31/2023 10:43:00 14.8 11.6-15.2 (seconds) Final INR 07/31/2023 10:43:00 1.1 0.8-1.2 Final Performing Location LABORATORY C - [address] [place] [address]
--- OUTSIDE RECORDS SUMMARY | 2023-08-14 23:33 | External Medical Summary ---
Author Name Unknown Address Unknown Organization [id number]:LABORATORY [facility] - [address] [place] [address] Laboratory Report Ordering Provider Test Date Status ANTONIO EDMONDS 07/25/2023 13:22:14 Final Observation Date Value Abnormality Reference (Units ) Status Vitamin B12 07/25/2023 13:22:14 9291 222-2032 (pg/mL) Final Performing Location LAB[facility] - [address] [place] [address]
--- OUTSIDE RECORDS SUMMARY | 2023-08-14 23:33 | External Medical Summary ---
Author Name Unknown Address Unknown Organization [id number]:LABORATORY [facility] - [address] [place] [address] Laboratory Report Ordering Provider Test Date Status ANTONIO EDMONDS 07/25/2023 13:22:14 Final Observation Date Value Abnormality Reference (Units ) Status Folic Acid 07/25/2023 13:22:14 >20.0 >4.5 (ng/ mL) Final Performing Location LABORATORY [facility] - [address] [place] [address]
--- OUTSIDE RECORDS SUMMARY | 2023-08-14 23:33 | External Medical Summary | Summary of Care ---
Author Name Unknown Organization [facility] Address [address] [place] [address] Phone [phone] Care Team Providers Care Press Operator Helper Name Role Phone Florentin Calvo DO Primary Care Provider [phone] Reason for Visit * Reason Onset Date Comments Test Results 07/24/2023 Encounter Details Date Type Department Care Team (Late st Contact Info) Description 07/24/2023 Telephone Family Practice 65 [facility] [address] [place] [address] Florentin Calvo DO [address] [place] [address] Test Results Allergies Active Allergy Reactions Criticality Noted Date Comments Azithromycin Other (Please comment) 12/04/2021 QTC prolongation at [facility] Celecoxib Hives,Rash High 03/24/2013 Other [...] Dispensed Refills Start Date End Date Status FAGUOTouch Verio w/Device KitIndications:Type 2 diabetes mellitus with [...] DIRECTED 100 Tablet 3 03/31/2023 Active Ipratropium [place] 0.03 % Nasal Solution (Atrovent)Indicatio ns:Chronic rhinitis [...] bedtime. 90 Tablet 3 05/16/2023 Active Tiotropium [place]-Olodaterol 2.5-2.5 MCG/ACT Inhalation Aerosol Solution (Stiolto Respimat) [...] mitral valve clip implantation 03/06/2023 Atherosclerosis of [place] 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 02/13/2023 Last Assessment & Plan: Continue statin, sotalol. 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 No-LOVELOCK can hear w/ hearing aid 03/07/2023 Are [...] Encounter - Hilda Awad LPN - 07/24/2023 1:26 PM EST Patient is aware and will comply. Thank you * Telephone Encounter - Florentin Calvo DO - 07/24/2023 1:24 PM EST Patient has hemorrhoids on colonoscopy report Check CBC with diff Observe for additional bleeding * Telephone Encounter - Hilda Awad LPN - 07/24/2023 11:22 AM EST Patient called states that she had one episode yesterday of bm, right red blood in toilet. Bm was not constipated, no belly pain or fever. \\ Has not had another bm to check documented in this encounter Plan of Treatment Upcoming Encounters Date Type Department Care Team (Late st Contact Info) Description 07/31/2023 6:00 AM EST Hospital Encounter CRS Waiting [facility], Cardiac Recovery Suite Waiting Unit, H [address] [facility] [place] [address] Wilbur Rivera MD [address] [place] [address] 07/31/2023 6:00 AM EST - 07/31/2023 8:00 AM EST Surgery CRS Waiting [facility], Cardiac Recovery Suite Waiting Unit, H [address] [facility] [place] [address] Wilbur Rivera MD [address] [place] [address] PERCUTANEOUS CLOSURE LEFT ATRIAL APPENDAGE IMPLANT 07/31/2023 6:00 AM EST Office Visit Cardiology [facility], [place] [address] [place] [facility] [place] [address] [facility] Cardiac [facility] [address] [place] [address] 08/01/2023 10:00 AM EST [facility] Visit [facility] [place], [facility] 132 [facility] [place] [address] Michelle Hurt RN [address] [place] [address] 08/13/2023 8:40 AM EST Office Visit Nephrology, Jerri Zamora 200 [facility] [place], [place] [address] Rosario Green MD 200 [facility] [place], [place] [address] 08/22/2023 2:20 PM EST Office Visit Family Practice [address] [place] [address] 293 [facility], [place] [address] Florentin Calvo, DO 293 [facility], [place] [address] 09/02/2023 2:30 PM EST Home Visit [facility] at [facility] 132 [facility] [place] [address] Michelle Hurt RN [facility] [address] 09/19/2023 8:30 AM EST Procedure Only Endoscopy, [facility] 132 [facility] [place] [address] Jana Vieira, DO 132 [facility] [place] [address] 09/22/2023 3:00 PM EST Office Visit Cardiology, [facility] 132 [facility] [place] [address] Stephen Hewitt, DO 132 [facility] [place] [address] 10/14/2023 2:30 PM EST Office Visit Hematology/Oncolog y [facility] [address] [place], [place] [address] Nereyda Metz CRNP [address] [place] [address] [place] [address] 10/24/2023 2:30 PM EST Office Visit Gynecology/Oncolog y, [place] [address] [place] [address] Vanessa Elena PA-C [address] [facility] [address] 01/21/2024 2:40 PM EDT Office Visit Otolaryngology [facility] 132 [facility] [place] [address] Cheri Castillo PA-C 132 [facility] [place] [address] 06/03/2024 2:15 PM EDT Office Visit Ophthalmology, [facility] 132 [facility] [place] [address] Wilbur Benavides DO 21 [facility] [place] [address] Scheduled Orders Name Type Priority Associated Diagnoses Orde r Schedule CBC WITH WBC DIFFERENTIAL Lab Routine Bloody stool Expected: 07/24/2023 (Approximate), Expires: 07/24/2024 Scheduled Procedures Name Priority Associated Diagnoses Date/Ti wa PERCUTANEOUS CLOSURE LEFT ATRIAL APPENDAGE IMPLANT Paroxysmal atrial fibrillation (HCC) 07/31/2023 6:00 AM EST Health Maintenance Due Date Last Done Comments Hepatitis B (1 of 3 - Risk 3-dose series) 2000 CKD PHOS USE SMARTSET 03401 05/01/2023 09/0 02/2022, 04/03/2022, 12/05/2020, Additional history [...] Screening 05/23/2024 05/23/2023 CKD HGB USE SMARTSET 49903 07/03/202407/03, 07/03/2023, 04/11/2023, Additional history exists DXA Scan 05/07/2025 05/07/2021, [...] this encounter Medical Devices Implanted Type Area Skilled Nursing Case Manager Device Identifier Shelf Expiration Date Model / Serial / Lot Cath Thermodilution 6fr - [id number] Implanted:Qty: 1 on 01/24/2023 by Wilbur Rivera MD at [facility] [employer] TERE [id number] 10/15/2024 [id number] / / [id number] Mirtaclip G4 - [id number] Implanted:Qty: 1 on 03/10/2023 at [facility] [employer] 11/19/2023 [id number] / / [id number] documented as of this encounter Visit Diagnoses Diagnosis Paroxysmal atrial fibrillation (HCC)- Primary Atrial fibrillation Bloody stool- Primary Blood in stool Paroxysmal atrial fibrillation (HCC) Atrial fibrillation documented in this encounter Advance Directives Documents on File Type Date Recorded Patient Scrap Sawyer Expl anation Advance Directives and Living Will 11/29/2022 ADVANCE DIRECTIVE / LIVING WILL Power of Superintendent Landfill Operations 11/29/2022 POWER OF A TTORNEY Advance Directives and Living Will 10/24/2014 ADVANCE DIRECTIVE / LIVING WILL Power of Superintendent Landfill Operations 10/24/2014 POWER OF A TTORNEY Latest Code [...] Agen t (per Health Care Power of Superintendent Landfill Operations document) Care Teams Press Operator Helper Relationship Specialty Start Date End Date Florentin Calvo DO [address] [place] [address] PCP - General Internal Medicine 03/24/13 documented as of this encounter
--- OUTSIDE RECORDS SUMMARY | 2023-08-14 23:33 | External Medical Summary ---
Author Name Unknown Address Unknown Organization K01:[facility]ATORY [facility] [place] [address] [facility] [address] Laboratory Report Ordering Provider Test Date Status EDUARDO LADD 07/31/2023 15:20:00 Final Observation Date Value Abnormality Reference (Units ) Status WBC, Total 07/31/2023 15:20:00 8.76 4.00-10.80 (K/uL) Final RBC 07/31/2023 15:20:00 3.24 3.85-5.15 (M/uL) Final Hemoglobin 07/31/2023 15:20:00 9.8 Below low normal 12.0-15.3 (g/dL) Final HCT 07/31/2023 15:20:00 32.3 Below low normal 36.0-45.2 (%) Final MCV 07/31/2023 15:20:00 99.7 81.5-97.5 (fL) Final MCH 07/31/2023 15:20:00 30.2 27.0-34.0 (pg) Final MCHC 07/31/2023 15:20:00 30.3 32.0-36.0 (g/dL) Final RDW 07/31/2023 15:20:00 17.1 11.5-15.5 (%) Final Platelets 07/31/2023 15:20:00 184 140-400 (K/uL) Final MPV 07/31/2023 15:20:00 10.0 6.6-11.1 (fL) Final Nucleated erythrocytes/100 leukocytes [Ratio] in Blood by Automated count 07/31/2023 15:20:00 0 <=0 (/100 WBCs) Final Performing Location LAB[facility]ATORY [facility] [place] [address] [place] [address]
--- OUTSIDE RECORDS SUMMARY | 2023-08-14 23:33 | External Medical Summary ---
Author Name Unknown Address Unknown Organization K01:[facility] [place] [address] [facility] [address] Laboratory Report Ordering Provider Test Date Status ANTONIO EDMONDS 07/25/2023 13:22:14 Final Observation Date Value Abnormality Reference (Units ) Status Iron 07/25/2023 13:22:14 94 33-151 (ug /dL) Final Iron-binding capacity 07/25/2023 13:22:14 301 250-425 (ug/dL) Final Transferrin Sat % 07/25/2023 13:22:14 31 15 -55 (%) Final Performing Location LABORATORY C - [address] [facility] [address]
--- OUTSIDE RECORDS SUMMARY | 2023-08-14 23:33 | External Medical Summary | Summary of Care ---
Author Name Unknown Organization [facility] Address [address] [place] [address] Phone [phone] Care Team Providers Care Propulsion Motor And Generator Repairer Name Role Phone Florentin Calvo DO Primary Care Provider [phone] Encounter Details Date Type Department Care Team (Late st Contact Info) Description 07/31/2023 Telephone Cardiology [facility] [address] [place] [address] [facility] [address] [place] [address] Allergies Active Allergy Reactions Criticality Noted Date [...] as of this encounter (statuses as of 07/31/2023) Medications Medication Sig Dispensed Refills Start Date End Date Status Clopidogrel Bisulfate 75 MG Oral Tablet (pLAVix) Take 1 Tablet by mouth every evening. 30 Tablet 5 07/31/2023 Active Fierce [employer] Frugal w/Device KitIndications:Typ e 2 diabetes mellitus with hemoglobin A1c goal of less than 7.0% ([facility]) Use up to 1 times a day. E11.9 1 Kit 0 06/19/2021 Suspended Additional Information Aspirin 81 MG Oral Tablet Delayed Release Take 1 Tablet by mouth daily. 0 Suspended Acetaminophen 325 MG Oral Tablet (Tylenol) Take 2 Tablets by mouth every 6 hours as needed. 100 Tablet 0 12/04/2021 Suspended Vitamin D3 50 MCG (1999 UT) Oral CapsuleIndications :Vitamin D deficiency Take 2 Capsules by mouth in the morning. 60 Capsule 5 04/04/2022 Suspended Levalbuterol Tartrate 45 MCG/ACT Inhalation Aerosol (Xopenex HFA)Indications:As thma with severity to be determined Inhale by mouth 1 Puff every 4 hours as needed for Wheezing. 15 g 12 06/13/2022 Suspended Additional Information F[employer]ce [employer] Frugal In Vitro Strip (Glucose Blood) Test blood sugars up to 2 times a day E11.9 200 Strip 3 12/20/2022 Suspended Additional Information Vitamin B-12 100 MCG Oral Tablet (vitamin B-12) Take 1 Tablet by mouth in the morning. 30 Tablet 3 02/13/2023 Suspended Folic Acid 1 MG Oral TabletIndications: Chronic atrial fibrillation (HCC) TAKE ONE TABLET BY MOUTH EVERY MORNING 100 Tablet 1 02/03/2023 4 Suspended Additional Information Montelukast Sodium 10 MG Oral Tablet (Singulair)Indicat ions:Moderate persistent asthma without complication TAKE ONE TABLET BY MOUTH AT BEDTIME 100 Tablet 3 08/05/2022 4 Suspended Additional Information Torsemide 20 MG Oral Tablet (Demadex) Take 1 Tablet by mouth in the morning. 100 Tablet 3 03/17/2023 Suspended Additional Information Sertraline HCl 100 MG Oral Tablet (Zoloft) Take one and one-half Tablets by mouth in the morning. 150 Tablet 1 03/17/2023 Suspended Additional Information Ferrous Sulfate 325 (65 Fe) MG Oral Tablet (Feosol) Take 1 Tablet by mouth daily with breakfast. 100 Tablet 1 03/18/2023 Suspended Atorvastatin Calcium 20 MG Oral Tablet (Lipitor)Indicatio ns:PVD (peripheral vascular disease) (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) TAKE ONE TABLET BY MOUTH EVERY DAY DIRECTED 100 Tablet 3 03/31/2023 Suspended Additional Information Ipratropium [place] 0.03 % Nasal Solution (Atrovent)Indicati ons:Chronic rhinitis Administer 2 Sprays into nostril in the morning and 2 Sprays before bedtime. 90 mL 3 04/01/2023 Suspended Additional Information Sotalol HCl 80 MG Oral Tablet (Betapace)Indicati ons:Paroxysmal atrial fibrillation (HCC) Take 0.5 Tablets by mouth in the morning and 0.5 Tablets before bedtime. 300 Tablet 3 04/10/2023 Suspended Additional Information Pantoprazole Sodium 40 MG Oral Tablet Delayed Release (Protonix) Take 1 Tablet by mouth in the morning and 1 Tablet by mouth in the evening. 200 Tablet 1 05/05/2023 Suspended Additional Information Allopurinol 300 MG Oral Tablet (Zyloprim) Take 1 Tablet by mouth at bedtime. 90 Tablet 3 05/16/2023 Suspended Additional Information Tiotropium [place]-Olodaterol 2.5-2.5 MCG/ACT Inhalation Aerosol Solution (Stiolto Respimat) Inhale 2 Puffs by mouth in the morning. 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: CLAIMS COORDINATOR Last Assessment & Plan: Now just using [...] as of this encounter (statuses as of 07/31/2023) Resolved Problems Problem Noted Date Diagnosed Date [...] as of this encounter (statuses as of 07/31/2023) Immunizations Name Administration Dates Next Due COVID-19 mRNA, LNP-s, No Pre serve, 2-Dose Series (Moderna) 06/23/2021,10/25/2020,09/28/2020 COVID-19, LNP-s, No Preserve , Larry-sucrose, Ages 12+ (Enablon) 04/09/2022 COVID-19, MRNA-LNP, 23-24, P F, 30 MCG/0.3 mL, 12 YRS AND ABOVE, IM ([email or web address]-Comirnaty) 06/09/2023 Covid-19, Mrna, Lnp-s, Pf, B ivalent, [...] or do you have serious difficulty hearing? No-SQUAXIN can hear w/ hearing aid 03/07/2023 Are [...] Description 08/01/2023 10:00 AM EST Home Visit [facility] [address] [address] Michelle Hurt RN [address] [address] 08/13/2023 8:40 AM EST Office Visit Nephrology, Jerri Zamora [address] [place] [address] Rosario Green MD [address] [place] [address] 08/22/2023 2:20 PM EST Office Visit Family Practice [address] [facility] [place] [address] [facility] [place] [address] Florentin Calvo, DO [address] [facility] [place] [address] 09/02/2023 2:30 PM EST Home Visit [facility], [facility] [address] [facility] [address] [address] Michelle Hurt, RN [address] [facility] [address] [address] 09/15/2023 8:00 AM EST Appointment Cardiac Studies [facility], [address] [id number] 09/19/2023 8:30 AM EST Procedure Only Endoscopy, [facility] [address] [facility] [address] [address] Jana Vieira, DO [address] [facility] [address] [address] 09/22/2023 3:00 PM EST Office Visit Cardiology, [facility] [address] [facility] [address] [address] Stephen Hewitt, DO [facility] [address] 10/14/2023 2:30 PM EST Office Visit Hematology/Oncology [facility] [address] [place] [address] Nereyda Metz CRNP [address] [place] [address] [facility] [place] [place] [address] 10/24/2023 2:30 PM EST Office Visit Gynecology/Oncology, [place] [address] [place], [place] [id number] Vanessa Elena PA-C [address] [place] [address] 01/21/2024 2:40 PM EDT Office Visit Otolaryngology [facility] [address] [facility] [address] [address] Cheri Castillo PA-C [address] [facility] [address] [address] 06/03/2024 2:15 PM EDT Office Visit Ophthalmology, [facility] [address] [facility] [address] [address] Wilbur Benavides, DO [address] [facility] [address] [address] Scheduled Procedures Name Priority Associated Diagnoses Date/Ti me PERCUTANEOUS CLOSURE LEFT ATRIAL APPENDAGE IMPLANT Paroxysmal atrial fibrillation (HCC) 07/31/2023 7:00 AM EST Health Maintenance Due Date Last Done Comments Hepatitis B (1 of 3 - Risk 3-dose series) 2000 CKD PHOS USE SMARTSET 09645 05/01/2023 09/0 02/2022, 04/03/2022, 12/05/2020, Additional history [...] Screening 05/23/2024 05/23/2023 CKD HGB USE SMARTSET 43627 07/31/202407/31, 07/31/2023, 07/24/2023, Additional history exists DXA [...] this encounter Medical Devices Implanted Type Area Financial Aids Officer Device Identifier Shelf Expiration Date Model / Serial / Lot Cath Thermodilution 6fr - [id number] Implanted:Qty: 1 on 01/24/2023 by Wilbur Rivera MD at [facility] [employer] [id number] 10/15/2024 [id number] / / [id number] Mirtaclip G4 - [id number] Implanted:Qty: 1 on 03/10/2023 at [facility] [employer] 11/19/2023 [id number] / / [id number] Device Watchman Flx 31mm - [id number] Implanted:Qty: 1 on 07/31/2023 by Wilbur Rivera MD at [facility] Context app : INTRV CARD [id number] 12/02/2025 [id number] / / [id number] documented as of this encounter Advance Directives Documents on File Type Date Recorded Patient Foam Tank Laminator Expl anation Advance Directives and Living Will 11/29/2022 ADVANCE DIRECTIVE / LIVING WILL Power of Insulation Machine Operator 11/29/2022 POWER OF A TTORNEY Advance Directives and Living Will 10/24/2014 ADVANCE DIRECTIVE / LIVING WILL Power of Insulation Machine Operator 10/24/2014 POWER OF A TTORNEY Latest Code Status on File Code Status Date Activated Date Inactivated Comments Full Code 07/31/2023 10:05 AM This orde r reflects the patients wishes and were consensually agreed upon. Question Answer Comments Discussion of Advance Directives occurred with: Not Discussed due to patient's condition Does the patient have a Living Will? No Does the patient have Health Care Power of Insulation Machine Operator? No Code Status History Code Status [...] Relationship Healthcare Agent Relationshi p Communication Bright [facility] Adult Child Health Care Agen t (per Health Care Power of Insulation Machine Operator document) Care Teams Propulsion Motor And Generator Repairer Relationship Specialty Start Date End Date Florentin Calvo DO [address] [place] [address] PCP - General Internal Medicine 03/24/13 documented as of this encounter
--- OUTSIDE RECORDS SUMMARY | 2023-08-14 23:33 | External Medical Summary | Summary of Care ---
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 Name Role Phone Florentin Calvo DO Primary Care Provider [phone] Reason for Visit * Reason Comments Follow Up Encounter Details Date Type Department Care Team (Late st Contact Info) Description 07/23/2023 2:40 PM EST Office Visit Otolaryngology [facility] [address] [place] [address] Cheri Castillo PA-C [address] [place] [address] Chronic Eustachian tube dysfunction, right*; S/P myringotomy with insertion of tube Allergies Active Allergy Reactions Criticality Noted Date Comments Azithromycin Other (Please comment) 12/04/2021 QTC prolongation at [facility] Celecoxib Hives,Rash High 03/24/2013 Other [...] as of this encounter (statuses as of 07/23/2023) Medications Medication Sig Dispensed Refills Start Date End Date Status E-TEK DynamicsTouch Verio w/Device KitIndications:Type 2 diabetes mellitus with hemoglobin A1c goal of less than 7.0% ([facility]) Use up to 1 times a day. E11.9 1 Kit 0 06/19/2021 Active Aspirin 81 MG Oral Tablet Delayed Release Take 1 Tablet by mouth daily. 0 Active Acetaminophen 325 MG Oral Tablet (Tylenol) Take 2 Tablets by mouth every 6 hours as needed. 100 Tablet 0 12/04/2021 Active Vitamin D3 50 MCG (1999 UT) Oral CapsuleIndications:V itamin D deficiency Take 2 Capsules by mouth in the morning. 60 Capsule 5 04/04/2022 Active Levalbuterol Tartrate 45 MCG/ACT Inhalation Aerosol (Xopenex HFA)Indications:Asth ma with severity to be determined Inhale by [...] 02/13/2023 Active Folic Acid 1 MG Oral TabletIndications:Ch ronic atrial fibrillation (HCC) TAKE ONE TABLET BY MOUTH EVERY MORNING 100 Tablet 1 02/03/2023 02/03/2024 Active Montelukast Sodium 10 MG Oral Tablet (Singulair)Indicatio ns:Moderate persistent asthma without complication TAKE ONE TABLET [...] Active Atorvastatin Calcium 20 MG Oral Tablet (Lipitor)Indications :PVD (peripheral vascular disease) ([facility]),Type 2 diabetes mellitus with stage 3a chronic kidney disease and hypertension ([facility]) TAKE ONE TABLET BY MOUTH EVERY DAY DIRECTED 100 Tablet 3 03/31/2023 Active Ipratropium [place] 0.03 % Nasal Solution (Atrovent)Indication s:Chronic rhinitis Administer 2 Sprays into nostril in the morning and 2 Sprays before bedtime. 90 mL 3 04/01/2023 Active Sotalol HCl 80 MG Oral Tablet (Betapace)Indication s:Paroxysmal atrial fibrillation (HCC) Take 0.5 Tablets by [...] bedtime. 90 Tablet 3 05/16/2023 Active Tiotropium [place]-Olodaterol 2.5-2.5 MCG/ACT Inhalation Aerosol Solution (Stiolto Respimat) Inhale 2 Puffs by mouth in the morning. 12 g 3 05/23/2023 Active Levothyroxine Sodium 125 MCG Oral Tablet (Levoxyl) TAKE ONE TABLET BY MOUTH FIRST THING IN THE MORNING 100 Tablet 3 07/22/2023 07/21/2024 Active Abrysvo 120 MCG/0.5ML Intramuscular Solution Reconstituted (RSV Pre-Fusion F A&B Vac Rcmb)Indications:Nee d for RSV vaccination Inject 0.5 mL into a large muscle once for 1 dose. 1 Each 0 07/22/2023 07/23/2023 Active Hospital, Clinic, or Other Facility Administered Medication Ordered Dose Route Frequency Start Date End Date Status Albuterol Sulfate (Proventil) (5 MG/ML) 0.5% *conc* inhalation solution 2.5 mgIndications:SOB (shortness of breath) 2.5 mg NEBULIZER PRN 10/29/2022 10/29/2023 Act akil Albuterol Sulfate (Proventil) (2.5 MG/3ML) 0.083% inhalation solution 2.5 mgIndications:SOB (shortness of breath) 2.5 mg NEBULIZER PRN 10/29/2022 10/29/2023 Act akli documented as of this encounter (statuses as of 07/23/2023) Active Problems Problem Noted Date Diagnosed Date S/P mitral valve clip implantation 03/06/2023 Atherosclerosis of [place] 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 02/13/2023 Last Assessment & Plan: Continue statin, sotalol. 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 Last Assessment & Plan: Now just using [...] as of this encounter (statuses as of 07/23/2023) Resolved Problems Problem Noted Date Diagnosed Date [...] as of this encounter (statuses as of 07/23/2023) Immunizations Name Administration Dates Next Due COVID-19 mRNA, LNP-s, No Pre serve, 2-Dose Series (Moderna) 06/23/2021,10/25/2020,09/28/2020 COVID-19, LNP-s, No Preserve , Larry-sucrose, Ages 12+ (Pfizer) 04/09/2022 COVID-19, MRNA-LNP, 23-24, P F, 30 MCG/0.3 mL, 12 YRS AND ABOVE, IM ([employer]) 06/09/2023 Covid-19, Mrna, Lnp-s, Pf, B ivalent, 30 Mcg, IM, 12 yrs and above (NuConomy) 09/10/2022 HEP A - Hepatitis A (Adult [...] Sign Reading Time Taken Comments Blood Pressure - - Pulse - - Temperature 36.2 C (97.2 F) 07/23/2023 2:34 PM ES T Respiratory Rate - - Oxygen Saturation - - Inhaled Oxygen Concentration - - Weight 71.7 kg (158 lb) 07/23/2023 2:34 PM EST Height 165.1 cm (5' 5") 07/23/2023 2:34 PM EST Body Mass Index 26.29 07/23/2023 2:34 PM EST documented in this encounter Functional Status Functional Status Response Date of Assess ment Are you deaf or do you have serious difficulty hearing? No-[place] can hear w/ hearing aid 03/07/2023 Are [...] as of this encounter Progress Notes * Cheri Castillo PA-C - 07/23/2023 2:40 PM EST SUBJECTIVE: Inga Barakat is a 82 year old female. Chief Complaint Patient presents with Follow Up HPI: Patient presents for return appointment for right tube check. She had right tube placed officeby Dr. Dupree 3 months ago due to chronic right middle ear effusion. She denies otorrhea. She has intermittent brief bilateral sharp otalgia. Patient Active Problem List Diagnosis Code Type 2 diabetes mellitus with hemoglobin A1c goal of less than 7.0% ([facility]) E11.9 Vertigo R42 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 claudication M48.061 Hypothyroidism E03.9 Displacement of cervical intervertebral disc without myelopathy M50.20 Meniere's disease H81.09 Paroxysmal atrial fibrillation ([facility]) I48.0 Obstructive sleep apnea of adult G47.33 Tremor R25.1 Iron deficiency anemia D50.9 Angiodysplasia of colon with hemorrhage K55.21 Acquired renal cyst N28.1 Controlled substance agreement signed Z79.899 Type 2 diabetes mellitus with polyneuropathy ([facility]) E11.42 Secondary hyperparathyroidism, renal ([facility]) N25.81 Pulmonary hypertension ([facility]) I27.20 Current moderate episode of major depressive disorder without prior episode ([facility]) F32.1 Moderate persistent asthma without complication J45.40 Gastro-esophageal reflux disease without esophagitis K21.9 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 ([facility]) E11.319 Pure hypercholesterolemia E78.00 Aneurysm of left carotid artery ([facility]) I72.0 Aortic atherosclerosis ([facility]) I70.0 Chronic kidney disease, stage 3b ([facility]) N18.32 PVD (peripheral vascular disease) ([facility]) I73.9 Chronic diastolic CHF (congestive heart failure) ([facility]) I50.32 Type 2 diabetes mellitus with stage 3b chronic kidney disease, without long-term current use of insulin ([facility]) E11.22, N18.32 Cardiac pacemaker in situ Z95.0 History of endometrial cancer Z85.42 Normocytic anemia D64.9 Primary osteoarthritis of right knee M17.11 Severe tricuspid regurgitation I07.1 History of TIA (transient ischemic attack) Z86.73 Atherosclerosis of [place] coronary artery without angina pectoris I25.10 S/P mitral valve clip implantation Z98.890, Z95.818 Current Outpatient Medications Medication Sig Dispense Refill [place] w/Device Kit Use up to 1 times a day. E11.9 1 Kit 0 Aspirin 81 MG Oral Tablet Delayed Release Take 1 Tablet by mouth daily. Acetaminophen 325 MG Oral Tablet (Tylenol) Take 2 Tablets by mouth every 6 hours as needed. 100 Tablet 0 Vitamin D3 50 MCG (2000 UT) Oral Capsule Take 2 Capsules by mouth in the morning. 60 Capsule 5 Levalbuterol Tartrate 45 MCG/ACT Inhalation Aerosol (Xopenex HFA) Inhale by mouth 1 Puff every 4 hours as needed for Wheezing. 15 g 12 E-TEK DynamicsTouch Verio In Vitro Strip (Glucose Blood) Test blood sugars up to 2 times a day E11.9 200 Strip3 Vitamin B-12 100 MCG Oral Tablet (vitamin B-12) Take 1 Tablet by mouth in the morning. 30 Tablet 3 Folic Acid 1 MG Oral Tablet TAKE ONE TABLET BY MOUTH EVERY MORNING 100 Tablet 1 Montelukast Sodium 10 MG Oral Tablet (Singulair) TAKE ONE TABLET BY MOUTH AT BEDTIME 100 Tablet 3 Torsemide 20 MG Oral Tablet (Demadex) Take 1 Tablet by mouth in the morning. 100 Tablet 3 Sertraline HCl 100 MG Oral Tablet (Zoloft) Take one and one-half Tablets by mouth in the morning. 150 Tablet 1 Ferrous Sulfate 325 (65 Fe) MG Oral Tablet (Feosol) Take 1 Tablet by mouth daily with breakfast. 100 Tablet 1 Atorvastatin Calcium 20 MG Oral Tablet (Lipitor) TAKE ONE TABLET BY MOUTH EVERY DAY DIRECTED 100Tablet 3 Ipratropium [place] 0.03 % Nasal Solution (Atrovent) Administer 2 Sprays into nostril in the morning and 2 Sprays before bedtime. 90 mL 3 Sotalol HCl 80 MG Oral Tablet (Betapace) Take 0.5 Tablets by mouth in the morning and 0.5 Tablets before bedtime. 300 Tablet 3 Pantoprazole Sodium 40 MG Oral Tablet Delayed Release (Protonix) Take 1 Tablet by mouth in the morning and 1 Tablet by mouth in the evening. 200 Tablet 1 Allopurinol 300 MG Oral Tablet (Zyloprim) Take 1 Tablet by mouth at bedtime. 90 Tablet 3 Tiotropium [place]-Olodaterol 2.5-2.5 MCG/ACT Inhalation Aerosol Solution (Stiolto Respimat) Inhale2 Puffs by mouth in the morning. 12 g 3 Levothyroxine Sodium 125 MCG Oral Tablet (Levoxyl) TAKE ONE TABLET BY MOUTH FIRST THING IN THE MORNING 100 Tablet 3 Abrysvo 120 MCG/0.5ML Intramuscular Solution Reconstituted (RSV Pre-Fusion F A&B Vac Rcmb) Inject 0.5 mL into a large muscle once for 1 dose. 1 Each 0 Current Facility-Administered Medications Medication Dose Route Frequency Provider Last Rate Last Admin Albuterol Sulfate (Proventil) (5 MG/ML) 0.5% *conc* inhalation solution 2.5 mg 2.5 mg Nebulizer Veronique Lora CRNP Albuterol Sulfate (Proventil) (2.5 MG/3ML) 0.083% inhalation solution 2.5 mg 2.5 mg Nebulizer Veronique Garza CRNP 2.5 mg at 10/31/22 1441 Review of patient's allergies indicates: Allergen Reactions Celecoxib Hives and Rash Other reaction(s): Rash/Hives/Itching. Cephalexin Other reaction(s): Rash/Hives/Itching. Dexamethasone Other reaction(s): Steroid psychosis. Furosemide Other reaction(s): Rash/Hives/Itching. Gabapentin Hives and Rash Other reaction(s): Rash/Hives/Itching. Other reaction(s): Rash/Hives/Itching. Meclizine Rash Other reaction(s): Unknown Other reaction(s): Unknown Methylprednisolone Hives and Rash Other reaction(s): Rash/Hives/Itching. Penicillins Hives and Rash Other reaction(s): Unknown. Prednisone Hives and Rash Other reaction(s): Rash/Hives/Itching. Pregabalin Other reaction(s): Rash/Hives/Itching. Other reaction(s): Rash/Hives/Itching. Sulfa Antibiotics Hives and Rash Other reaction(s): Severe rxn: rash and hives Other reaction(s): Severe rxn: rash and hives Vancomycin Hives and Rash Other reaction(s): Jodi syn. . Ranitidine Itching and Rash Azithromycin Other (Please comment) QTC prolongation at [facility] Nickel Swelling Other reaction(s): Unknown REVIEW OF SYSTEMS Negative for constitutional, heart, lung, liver, kidney, digestive, hematologic, neurologic, rheumatologic, or endocrine complaints except as per history of present illness and past medical history. OBJECTIVE: Temp 36.2 C (97.2 F) (Tympanic) | Ht 1.651 m (5' 5") | Wt 71.7 kg (158 lb) | BMI 26.29 kg/m |BSA 1.81 m PHYSICAL EXAM: Temp 36.2 C (97.2 F) (Tympanic) | Ht 1.651 m (5' 5") | Wt 71.7 kg (158 lb) | BMI 26.29 kg/m |BSA 1.81 m General: alert, healthy, and no distress Ears: External ears normal, Canals clear, right tube is healthy and functional, left tympanic membrane intact and healthy with no effusion, retraction or perforation. ASSESSMENT/PLAN: Encounter Diagnoses Name Primary? Chronic Eustachian tube dysfunction, right Yes S/P myringotomy with insertion of tube Plan:Findings and problems reviewed with patient. Right tube healthy. She will return in 6 months for tube check Cheri Castillo PA-C 07/23/2023 9:17 AM documented in this encounter Nursing Notes * Margarette Jacobs LPN - 07/23/2023 2:32 PM EST Pt presents today for a follow up for having tubes placed in her right ear. Pt reports having pain in both ears, more her right ear though, she has no drainage from either ear. documented in this encounter Plan of Treatment Upcoming Encounters Date Type Department Care Team (Late st Contact Info) Description 07/31/2023 6:00 AM EST Hospital Encounter [facility] [place] Waiting Unit, [address] [place] [address] Wilbur Rivera MD [address] [place] [address] 07/31/2023 6:00 AM EST - 07/31/2023 8:00 AM EST Surgery [facility]S [place] Waiting Unit, [address] [place] [address] Wilbur Rivera MD [address] [place] [address] PERCUTANEOUS CLOSURE LEFT ATRIAL APPENDAGE IMPLANT 07/31/2023 6:00 AM EST Office Visit Cardiology [facility] [address] [place] [address] [facility] [address] [place] [address] 08/01/2023 10:00 AM EST [facility] [address] [place] [address] Michelle Hurt, RN [address] [place] [address] 08/13/2023 8:40 AM EST Office Visit Nephrology, Jerri Zamora [address] [place] [address] Rosario Green MD [address] [place] [address] 08/22/2023 2:20 PM EST Office Visit Family Practice [address] [place] [address] [address] [place] [address] Florentin Calvo, [address] [place] [address] 09/02/2023 2:30 PM EST Home Visit [facility] [address] [facility] [place] [address] Michelle Hurt, RN [address] [place] [address] 09/19/2023 8:30 AM EST Procedure Only Endoscopy, [facility] [address] [facility] [place] [address] Jana Vieira, DO [address] [facility] [place] [address] 09/22/2023 3:00 PM EST Office Visit Cardiology, [facility] 132 [facility] [place] [address] Stephen Hewitt, [address] [facility] [place] [address] 10/14/2023 2:30 PM EST Office Visit Hematology/Oncolog y [facility] [address] [place] [address] Nereyda Metz CRNP [address] [place] [address] 10/24/2023 2:30 PM EST Office Visit Gynecology/Oncolog y, [place] [address] [place] [address] Vanessa Elena PA-C [address] [place] [address] 01/21/2024 2:40 PM EDT Office Visit Otolaryngology [facility] [address] [facility] [place] [address] Cheri Castillo PA-C [address] [facility] [place] [address] 06/03/2024 2:15 PM EDT Office Visit Ophthalmology, [facility] [address] [place] [address] Wilbur Benavides, DO [address] [facility] [place] [address] Scheduled Procedures Name Priority Associated Diagnoses Date/Ti me PERCUTANEOUS CLOSURE LEFT ATRIAL APPENDAGE IMPLANT Paroxysmal atrial fibrillation (HCC) 07/31/2023 6:00 AM EST Health Maintenance Due Date Last Done Comments Hepatitis B (1 of 3 - Risk 3-dose series) 2000 CKD PHOS USE SMARTSET 74050 05/01/2023 09/0 02/2022, 04/03/2022, 12/05/2020, Additional history [...] Screening 05/23/2024 05/23/2023 CKD HGB USE SMARTSET 72996 07/03/202407/03, 07/03/2023, 04/11/2023, Additional history exists DXA [...] this encounter Medical Devices Implanted Type Area Strawhat Sizer Device Identifier Shelf Expiration Date Model / Serial / Lot Cath Thermodilution 6fr - [id number] Implanted:Qty: 1 on 01/24/2023 by Wilbur Rivera MD at [facility] [employer] [id number] 10/15/2024 [id number] / / [id number] Mirtaclip G4 - [id number] Implanted:Qty: 1 on 03/10/2023 at [facility] [employer] 11/19/2023 [id number] / / [id number] documented as of this encounter Visit Diagnoses Diagnosis Paroxysmal atrial fibrillation (HCC)- Primary Atrial fibrillation Chronic Eustachian tube dysfunction, right- Primary S/P myringotomy with insertion of tube Other postprocedural status Paroxysmal atrial fibrillation (HCC) Atrial fibrillation documented in this encounter Advance Directives Documents on File Type Date Recorded Patient Internet Project Manager Expl anation Advance Directives and Living Will 11/29/2022 ADVANCE DIRECTIVE / LIVING WILL Power of Acetylene Gas Compressor 11/29/2022 POWER OF A TTORNEY Advance Directives and Living Will 10/24/2014 ADVANCE DIRECTIVE / LIVING WILL Power of Acetylene Gas Compressor 10/24/2014 POWER OF A TTORNEY Latest Code [...] Agen t (per Health Care Power of Acetylene Gas Compressor document) Care Teams 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
--- OUTSIDE RECORDS SUMMARY | 2023-08-14 23:34 | External Medical Summary ---
Author Name Unknown Address Unknown Organization K0G:[facility] [address] [place] [address] Laboratory Report Ordering Provider Test Date Status PARVIZ ORR 07/03/2023 12:25:44 Final Observation Date Value Abnormality Reference (Units ) Status SYNC LEUKOCYTES IN BLOOD BY AUTOMATED COUNT 07/03/2023 12:25:44 8.87 4.00-10.80 (K/uL) Final Segs 07/03/2023 12:25:44 67.5 40.0-75.0 (%) Final Lymphs % 07/03/2023 12:25:44 15.7 Below low normal 18.0-42.0 (%) Final Monos 07/03/2023 12:25:44 8.8 1.0-11.0 (%) Final Eosinophils 07/03/2023 12:25:44 7.7 Above high normal 0.0-6.0 (%) Final Basos 07/03/2023 12:25:44 0.3 0.0-2.0 (%) Final Absolute Segs 07/03/2023 12:25:44 5.99 1.80-7.70 (K/uL) Final Lymphs, absolute 07/03/2023 12:25:44 1.39 1.00-4.80 (K/ul) Final Monos, Abs 07/03/2023 12:25:44 0.78 0.00-1.10 (K/uL) Final Eos, Abs 07/03/2023 12:25:44 0.68 0.00-0.70 (K/uL) Final Basos, Abs 07/03/2023 12:25:44 0.03 0.00-0.20 (K/uL) Final Performing Location [facility] [place] [address]
--- OUTSIDE RECORDS SUMMARY | 2023-08-14 23:34 | External Medical Summary | Summary of Care ---
Author Name Unknown Organization [facility] Address [address] [place] [address] Phone [phone] Care Team Providers Care Pharmacy Laboratory Technician Name Role Phone Florentin Calvo DO Primary Care Provider [phone] Encounter Details Date Type Department Care Team (Late st Contact Info) Description 07/07/2023 Result Scan Unspecified Department Stephen Hewitt DO [address] [facility] [place] [address] <No scans attached> Allergies Active Allergy Reactions Criticality Noted Date [...] as of this encounter (statuses as of 07/07/2023) Medications Medication Sig Dispensed Refills Start Date End Date Status Operatix w/Device KitIndications:Type 2 diabetes mellitus with hemoglobin A1c goal of less than 7.0% ([facility]) Use up to 1 times [...] Wheezing. 15 g 12 06/13/2022 Active OneTouch [employer] In Vitro Strip (Glucose Blood) Test blood [...] MORNING 100 Tablet 1 02/03/2023 02/03/2024 Active Levothyroxine Sodium 125 MCG Oral Tablet (Levoxyl) TAKE ONE TABLET BY MOUTH FIRST THING IN THE MORNING 100 Tablet 1 01/31/2023 01/31/2024 Active ALPRAZolam 0.5 MG Oral Tablet (xaNAX)Indications: Persistent insomnia,Anxiety TAKE ONE TABLET BY MOUTH AT BEDTIME NEEDED FOR SLEEP OR ANXIETY USES HALF OF A TABLET NEEDED FOR ANXIETY AND SLEEP 90 Tablet 0 01/17/2023 07/20/2023 Active Montelukast Sodium 10 MG Oral Tablet (Singulair)Indicati ons:Moderate persistent asthma without complication TAKE ONE TABLET BY MOUTH AT BEDTIME 100 Tablet 3 08/05/2022 09/10/2023 Active Torsemide 20 MG Oral Tablet (Demadex) Take 1 Tablet by mouth in the morning. 100 Tablet 3 03/17/2023 Active Sertraline HCl 100 MG Oral Tablet (Zoloft) Take 1.5 Tablets by mouth in the morning. 150 Tablet 1 03/17/2023 Active Ferrous Sulfate 325 (65 Fe) MG Oral Tablet (Feosol) Take 1 Tablet by mouth daily with breakfast. 100 Tablet 1 03/18/2023 Active Atorvastatin Calcium 20 MG Oral Tablet (Lipitor)Indication s:PVD (peripheral vascular disease) ([facility]),Type 2 diabetes mellitus with stage 3a chronic kidney disease and hypertension ([facility]) TAKE ONE TABLET BY MOUTH EVERY DAY DIRECTED 100 Tablet 3 03/31/2023 Active Ipratropium [place] 0.03 % Nasal Solution (Atrovent)Indicatio ns:Chronic rhinitis [...] bedtime. 90 Tablet 3 05/16/2023 Active Tiotropium [place]-Olodaterol 2.5-2.5 MCG/ACT Inhalation Aerosol Solution (Stiolto Respimat) Inhale 2 Puffs by mouth in the morning. 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 No-[place] can hear w/ hearing aid 03/07/2023 Are [...] 6:00 AM EST Hospital Encounter CRS Waiting [facility], Cardiac Recovery Suite Waiting Unit, [address] [place] [address] Wilbur Rivera MD [address] [place] [address] 07/31/2023 6:00 AM EST - 07/31/2023 8:00 AM EST Surgery CRS Waiting [facility], Cardiac Recovery Suite Waiting Unit, [address] [place] [address] Wilbur Rivera MD [address] [place] [address] PERCUTANEOUS CLOSURE LEFT ATRIAL APPENDAGE IMPLANT 07/31/2023 6:00 AM EST Office Visit Cardiology [facility], [place] [address] [place] [address] [facility] Cardiac Recovery [facility] [address] [place], [place] [id number] 08/01/2023 10:00 AM EST [facility] Visit [facility] [address] [place] [address] Michelle Hurt RN [address] [place] [address] 08/13/2023 8:40 AM EST Office Visit Nephrology, [facility] [address] [place] [address] Rosario Green MD [address] [place] [address] 08/22/2023 2:20 PM EST Office Visit Family Practice [address] [place] [address] [address] [place] [address] Florentin Calvo DO [address] [place] [address] 09/02/2023 2:30 PM EST [facility] Visit [facility], [facility] [address] [place] [address] Michelle Hurt, RN [address] [place] [address] 09/04/2023 2:40 PM EST Office Visit Otolaryngology [facility] [address] [facility] [place], [place] [address] Cheri Castillo PA-C [address] [place], [place] [address] 09/19/2023 8:30 AM EST Procedure Only Endoscopy, [facility] 132 [facility] [place], [place] [address] Jana Vieira, DO [address] [place], [place] [address] 09/22/2023 3:00 PM EST Office Visit Cardiology, [facility] [address] [facility] [place] [address] Stpehen Hewitt, DO [facility] [address] 10/14/2023 2:30 PM EST Office Visit Hematology/Oncolog y [facility] [address] [place] [address] Nereyda Metz, TECH INTERN [address] [place] [address] 10/24/2023 12:30 PM EST Office Visit Gynecology/Oncolog y, [place] [address] [place] [address] Chris Peng PA-C [address] [place] [address] 06/03/2024 2:15 PM EDT Office Visit Ophthalmology, [facility] 132 [facility], [place] [address] Wilbur Benavides, DO [address] [place] [address] Scheduled Procedures Name Priority Associated Diagnoses Date/Ti me PERCUTANEOUS CLOSURE LEFT ATRIAL APPENDAGE IMPLANT Paroxysmal atrial fibrillation (HCC) 07/31/2023 6:00 AM EST Health Maintenance Due Date Last Done Comments Hepatitis B (1 of 3 - Risk 3-dose series) 2000 CKD PHOS USE SMARTSET 90167 05/01/2023 09/0 02/2022, 04/03/2022, 12/05/2020, Additional history [...] Screening 05/23/2024 05/23/2023 CKD HGB USE SMARTSET 70610 07/03/202407/03, 07/03/2023, 04/11/2023, Additional history exists DXA [...] this encounter Medical Devices Implanted Type Area Mailing Jogger Device Identifier Shelf Expiration Date Model / Serial / Lot Cath Thermodilution 6fr - [id number] Implanted:Qty: 1 on 01/24/2023 by Wilbur Rivera MD at [facility] [employer] TERE [id number] 10/15/2024 [id number] / / [id number] Mirtaclip G4 - [id number] Implanted:Qty: 1 on 03/10/2023 at [facility] [employer] 11/19/2023 [id number] / / [id number] documented as of this encounter Procedures Procedure Name Priority Date/Time Associated Diagnosis Comments CARDIOLOGY SCANNED RESULT 07/07/2023 documented in this encounter Results * CARDIOLOGY SCANNED RESULT (07/07/2023) 07/07/2023 Stephen Hewitt DO OTHER documented in this encounter Advance Directives Documents on File Type Date Recorded Patient Surveillance Observer Expl anation Advance Directives and Living Will 11/29/2022 ADVANCE DIRECTIVE / LIVING WILL Power of Activity Assistant 11/29/2022 POWER OF A TTORNEY Advance Directives and Living Will 10/24/2014 ADVANCE DIRECTIVE / LIVING WILL Power of Activity Assistant 10/24/2014 POWER OF A TTORNEY Latest Code [...] Relationship Healthcare Agent Relationshi p Communication [facility] Adult Child Health Care Agen t (per Health Care Power of Activity Assistant document) Care Teams Pharmacy Laboratory Technician Relationship Specialty Start Date End Date Florentin Calvo DO [address] [place] [address] PCP - General Internal Medicine 03/24/13 documented as of this encounter
--- OUTSIDE RECORDS SUMMARY | 2023-08-14 23:34 | External Medical Summary ---
Author Name Unknown Address Unknown Organization K0G:[facility] [address] [place] [address] Laboratory Report Ordering Provider Test Date Status PARUL DE LA CRUZ 07/03/2023 12:25:44 Final Observation Date Value Abnormality Reference (Units ) Status Creatinine 07/03/2023 12:25:44 1.5 Above high normal 0.5-1.0 (mg/dL) Final Glomerular filtration rate/1.73 sq M.predicted [Volume Rate/Area] in Serum, Plasma or Blood by Creatinine-based formula (CKD-EPI) 07/03/2023 12:25:44 34 Below low normal >=60 (mL/min) Final eGFR is calculated based on the CKD-EPI 2020 equation Performing Location [facility] [address] [place] [address]
--- OUTSIDE RECORDS SUMMARY | 2023-08-14 23:34 | External Medical Summary | Summary of Care ---
Author Name Unknown Organization [facility] Address [address] [place] [address] Phone [phone] Care Team Providers Care Experimental Welder Name Role Phone Florentin Calvo DO Primary Care Provider [phone] Reason for Visit * Reason Onset Date Comments Immunization RSV Vaccine 07/22/2023 Encounter Details Date Type Department Care Team (Late st Contact Info) Description 07/22/2023 2:15 PM EST Immunization/I njection Family Practice [facility] [address] [place] [address] College, Nurse [facility] Prac [address] [address] Need for RSV vaccination* Allergies Active Allergy Reactions Criticality Noted Date Comments Azithromycin Other (Please comment) 12/04/2021 QTC prolongation at [facility] Celecoxib Hives,Rash High 03/24/2013 Other reaction(s): [...] Dispensed Refills Start Date End Date Status NEURA Energy SystemsTouch Verio w/Device KitIndications:Type 2 diabetes mellitus with hemoglobin A1c goal of less than 7.0% ([facility]) Use up to 1 times a day. [...] Oral Tablet (Lipitor)Indication s:PVD (peripheral vascular disease) ([facility]),Type 2 diabetes mellitus with stage 3a chronic kidney disease and hypertension ([facility]) TAKE ONE TABLET BY MOUTH EVERY DAY DIRECTED 100 Tablet 3 03/31/2023 Active Ipratropium [place] 0.03 % Nasal Solution (Atrovent)Indicatio ns:Chronic rhinitis [...] bedtime. 90 Tablet 3 05/16/2023 Active Tiotropium [place]-Olodaterol 2.5-2.5 MCG/ACT Inhalation Aerosol Solution (Stiolto Respimat) Inhale 2 Puffs by mouth in the morning. 12 g 3 05/23/2023 Active Abrysvo 120 MCG/0.5ML Intramuscular Solution Reconstituted (RSV Pre-Fusion F A&B Vac [facility])Indications:Ne ed for RSV vaccination Inject 0.5 mL into a large muscle once for 1 dose. 1 Each 0 07/22/2023 3 Active Levothyroxine Sodium 125 MCG Oral Tablet (Levoxyl) TAKE ONE TABLET BY MOUTH FIRST THING IN THE MORNING 100 Tablet 1 01/31/2023 3 Discontinue d(Refill) Hospital, Clinic, or Other Facility Administered Medication [...] mitral valve clip implantation 03/06/2023 Atherosclerosis of [place] 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 02/13/2023 Last Assessment & Plan: Continue statin, sotalol. 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 No-[place] can hear w/ hearing aid 03/07/2023 Are [...] No 03/07/2023 documented as of this encounter Patient Instructions * Patient Instructions* Hilda Awad LPN - 07/22/2023 2:17 PM EST Possible side effects of RSV vaccine, (Respiratory Syncytial Virus), are usually mild and can include: Soreness, swelling or redness at injection site Low grade fever Body aches or joint pain Headache Nausea or diarrhea You may use a fever/pain reducing medication for these symptoms. LET YOUR DOCTOR KNOW IMMEDIATELY IF YOU HAVE DIFFICULTY BREATHING OR SWALLOWING, EXPERIENCE ITCHINGOF FEET OR HANDS, HAVE SWELLING OF EYES, FACE OR INSIDE OF NOSE. documented in this encounter Plan of Treatment Upcoming Encounters Date Type Department Care Team (Late st Contact Info) Description 07/23/2023 2:40 PM EST Office Visit Otolaryngology [facility] 132 [facility] [place] [address] Cheri Castillo PA-C 132 [facility] [place] [address] 07/31/2023 6:00 AM EST Hospital Encounter CRS Waiting [facility], Cardiac Recovery Suite Waiting Unit, [address] [place] [address] Wilbur Rivera MD [address] [place] [address] 07/31/2023 6:00 AM EST - 07/31/2023 8:00 AM EST Surgery CRS Waiting [facility], Cardiac Recovery Suite Waiting Unit, H [address] [place] [address] Wilbur Rivera MD [address] [place] [address] PERCUTANEOUS CLOSURE LEFT ATRIAL APPENDAGE IMPLANT 07/31/2023 6:00 AM EST Office Visit Cardiology [facility] [address] [place] [address] [facility] Cardiac Recovery [facility] [address] [place], [place] [id number] 08/01/2023 10:00 AM EST [facility], [facility] 132 [facility] [place] [address] Michelle Hurt, RN 132 [facility] [place] [address] 08/13/2023 8:40 AM EST Office Visit Nephrology, [facility] 200 [facility] [place] [address] Rosario Green MD 200 [facility] [place] [address] 08/22/2023 2:20 PM EST Office Visit Family Practice [address] [place] [address] 293 [place] [address] Florentin Calvo, DO 293 [place] [address] 09/02/2023 2:30 PM EST [facility] Visit [facility], [facility] 132 [facility] [place] [address] Michelle Hurt, RN 132 [facility] [place] [address] 09/19/2023 8:30 AM EST Procedure Only Endoscopy, [facility] 132 [facility] [place] [address] Jana Vieira, DO 132 [facility] [place] [address] 09/22/2023 3:00 PM EST Office Visit Cardiology, [facility] 132 [facility] [place] [address] Stephen Hewitt, DO [facility] [place] [address] 10/14/2023 2:30 PM EST [facility] [address] [place] [address] Nereyda Metz CRNP 400 [facility] [place] [address] 10/24/2023 2:30 PM EST Office Visit Gynecology/Oncolog y, [place] [address] [place] [address] Vanessa Elena PA-C [address] [place] [address] 06/03/2024 2:15 PM EDT Office Visit Ophthalmology, [facility] 132 [facility] [place] [address] Wilbur Benavides DO 21 [facility] [place] [id number] Scheduled Procedures Name Priority Associated Diagnoses Date/Ti me PERCUTANEOUS CLOSURE LEFT ATRIAL APPENDAGE IMPLANT Paroxysmal atrial fibrillation (HCC) 07/31/2023 6:00 AM EST Health Maintenance Due Date Last Done Comments Hepatitis B (1 of 3 - Risk 3-dose series) 2000 CKD PHOS USE SMARTSET 31854 05/01/2023 09/0 02/2022, 04/03/2022, 12/05/2020, Additional history exists HbA1c 08/23/2023 02/21/2023, 01/0 10/2022, 04/03/2022, Additional history exists TSH 09/24/2023 09/24/2022, 01/0 10/2022, 02/12/2022, Additional history exists Diabetic Foot Exam 10/01/2023 10/01/2022, 0 10/26/2021, 12/05/2020, Additional history exists GFR 01/01/2024 07/03/2023, 04/25, 04/01/2023, Additional history exists Albumin/Creatinine Ratio 02/22/202402/21/2 023, 05/01/2022, 10/26/2021, Additional history exists Diabetic Eye Exam 05/22/2024 05/22/2023, , 05/22/2023, Additional history exists Depression Screening 05/23/2024 05/23/2023 CKD HGB USE SMARTSET 88314 07/03/202407/03, 07/03/2023, 04/11/2023, Additional history exists DXA [...] this encounter Medical Devices Implanted Type Area Yarn Wrapper Device Identifier Shelf Expiration Date Model / Serial / Lot Cath Thermodilution 6fr - [id number] Implanted:Qty: 1 on 01/24/2023 by Wilbur Rivera MD at [facility] [place] [employer] TERE [id number] 10/15/2024 [id number] / / [id number] Mirtaclip G4 - [id number] Implanted:Qty: 1 on 03/10/2023 at [facility] [id number] 11/19/2023 [id number] / / [id number] documented as of this encounter Visit Diagnoses Diagnosis Paroxysmal atrial fibrillation (HCC)- Primary Atrial fibrillation Need for RSV vaccination- Primary Need for prophylactic vaccination and inoculation against respiratory syncytial virus Paroxysmal atrial fibrillation (HCC) Atrial fibrillation documented in this encounter Advance Directives Documents on File Type Date Recorded Patient Passenger Tire Builder Expl anation Advance Directives and Living Will 11/29/2022 ADVANCE DIRECTIVE / LIVING WILL Power of Chief Technician 11/29/2022 POWER OF A TTORNEY Advance Directives and Living Will 10/24/2014 ADVANCE DIRECTIVE / LIVING WILL Power of Chief Technician 10/24/2014 POWER OF A TTORNEY Latest Code [...] Relationship Healthcare Agent [facility] p Communication [facility] Adult Child Health Care Agen t (per Health Care Power of Chief Technician document) Care Teams Experimental Welder Relationship Specialty Start Date End Date Florentin Calvo DO [address] [place] [address] PCP - General Internal Medicine 03/24/13 documented as of this encounter
--- OUTSIDE RECORDS SUMMARY | 2023-08-14 23:34 | External Medical Summary | Summary of Care ---
Author Name Unknown Organization [facility] Address [address] [place] [address] Phone [phone] Care Team Providers Care Edge Bonder Name Role Phone Florentin Calvo DO Primary Care Provider [phone] Reason for Visit * Reason Onset Date Comments Appointment 07/01/2023 Encounter Details Date Type Department Care Team (Late st Contact Info) Description 07/01/2023 Telephone [facility], [facility] [address] [place] [address] Evon Dela Cruz, Community Health Application Technical Designer Appointment Allergies Active Allergy Reactions Criticality Noted Date Comments Azithromycin Other (Please comment) 12/04/2021 QTC prolongation at [facility] Celecoxib Hives,Rash High 03/24/2013 Other [...] as of this encounter (statuses as of 07/01/2023) Medications Medication Sig Dispensed Refills Start Date End Date Status [facility] w/Device KitIndications:Type 2 diabetes mellitus with hemoglobin A1c goal of less than 7.0% ([facility]) Use up to 1 times [...] Oral Tablet (Lipitor)Indication s:PVD (peripheral vascular disease) ([facility]),Type 2 diabetes mellitus with stage 3a chronic kidney disease and hypertension ([facility]) TAKE ONE TABLET BY MOUTH EVERY DAY DIRECTED 100 Tablet 3 03/31/2023 Active Ipratropium [place] 0.03 % Nasal Solution (Atrovent)Indicatio ns:Chronic rhinitis [...] bedtime. 90 Tablet 3 05/16/2023 Active Tiotropium [place]-Olodaterol 2.5-2.5 MCG/ACT Inhalation Aerosol Solution (Stiolto Respimat) [...] as of this encounter (statuses as of 07/01/2023) Active Problems Problem Noted Date Diagnosed Date S/P mitral valve clip implantation 03/06/2023 Atherosclerosis of [place] 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 02/13/2023 Last Assessment & Plan: Continue statin, sotalol. 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 No-[place] can hear w/ hearing aid 03/07/2023 Are [...] or making decisions? (5 years old or older No 03/07/2023 documented as of this encounter Miscellaneous Notes * Telephone Encounter - Evon Dela Cruz, Community Health Application Technical Designer - 07/01/2023 9:12 AM EST Inbound call from patient she asked if they could be seen later on 07/02/23 put patient in for 4:00pm left her know her and spouse could be seen from 12:30 on not sure of the exact time She was agreeable RADHA Tesfaye Electronically signed by Evon Dela Cruz, Community Health Application Technical Designer at 07/01/2023 9:14 AM EST documented in this encounter Plan of Treatment Upcoming Encounters Date Type Department Care Team (Late st Contact Info) Description 07/02/2023 4:00 PM EST Home Visit [facility] [address] [place] [address] Michelle Hurt, RN 132 [facility] [place] [address] 07/31/2023 6:00 AM EST Hospital Encounter CRS Waiting [facility], Cardiac Recovery Suite Waiting Unit, [address] [place] [address] Wilbur Rivera MD [address] [place] [address] 07/31/2023 6:00 AM EST - 07/31/2023 8:00 AM EST Surgery CRS Waiting [facility], Cardiac Recovery Suite Waiting Unit, H [address] [place] [address] Wilbur Rivera MD [address] [place] [address] PERCUTANEOUS CLOSURE LEFT ATRIAL APPENDAGE IMPLANT 07/31/2023 6:00 AM EST Office Visit [facility] [address] [place] [address] [facility] Cardiac [facility] [address] [place] [address] 08/13/2023 8:40 AM EST Office Visit Nephrology, Jerri Zamora [address] [place] [address] Rosario Green MD 200 [facility] [place] [address] 08/22/2023 2:20 PM EST Office Visit Family Practice [address] [place] [address] 293 [place] [address] Florentin Calvo, DO [address] [place] [address] 09/04/2023 2:40 PM EST Office Visit Otolaryngology [facility] [address] [facility] [place] [address] Cheri Castillo PA-C [address] [place], [place] [address] 09/19/2023 8:30 AM EST Procedure Only Endoscopy, [facility] [address] [place] [address] Jana Vieira, DO [address] [place], [place] [address] 09/22/2023 3:00 PM EST Office Visit Cardiology, [facility] [address] [facility] [place] [address] Stephne Hewitt, DO [address] [place], [place] [address] 10/14/2023 2:30 PM EST Office Visit Hematology/Oncolog y [facility] [address] [place] [address] Nereyda Metz CRNP [address] [facility] [address] 10/24/2023 12:30 PM EST Office Visit Gynecology/Oncolog y, [place] [address] [place] [address] Chris Peng PA-C [address] [facility] [address] 06/03/2024 2:15 PM EDT Office Visit Ophthalmology, [facility] 132 [facility] [place] [address] Wilbur Benavides, DO [address] [facility] [address] [place] [phone] Scheduled Procedures Name Priority Associated Diagnoses Date/Ti me PERCUTANEOUS CLOSURE LEFT ATRIAL APPENDAGE IMPLANT Paroxysmal atrial fibrillation (HCC) 07/31/2023 6:00 AM EST Health Maintenance Due Date Last Done Comments Hepatitis B (1 of 3 - Risk 3-dose series) 2000 CKD PHOS USE SMARTSET 74249 05/01/2023 09/0 02/2022, 04/03/2022, 12/05/2020, Additional history exists HbA1c 08/23/2023 02/21/2023, 0 10/2022, 04/03/2022, Additional history exists TSH 09/24/2023 09/24/2022, 01/0 10/2022, 02/12/2022, Additional history exists Diabetic Foot Exam 10/01/2023 10/01/2022, 0 10/26/2021, 12/05/2020, Additional history exists GFR 11/07/2023 05/09/2023, 08/0 03/2023, 03/14/2023, Additional history exists Albumin/Creatinine Ratio 02/22/2024 023, 05/01/2022, 10/26/2021, Additional history exists CKD HGB USE SMARTSET 11884 04/11/202404/11, 04/11/2023, 04/01/2023, Additional history exists Diabetic Eye Exam 05/22/2024 05/22/2023, , 05/22/2023, Additional history exists Depression Screening 05/23/2024 05/23/2023 DXA Scan 05/07/2025 05/07/2021, 12/24, 04/12/2013, Additional [...] this encounter Medical Devices Implanted Type Area Engineering Scientist Device Identifier Shelf Expiration Date Model / Serial / Lot Cath Thermodilution 6fr - [id number] Implanted:Qty: 1 on 01/24/2023 by Wilbur Rivera MD at [facility] [employer] [id number] 10/15/2024 [id number] / / [id number] Mirtaclip G4 - [id number] Implanted:Qty: 1 on 03/10/2023 at [facility] [employer] 11/19/2023 [id number] / / [id number] documented as of this encounter Advance Directives Documents on File Type Date Recorded Patient Innovations Paraprofessional Expl anation Advance Directives and Living Will 11/29/2022 ADVANCE DIRECTIVE / LIVING WILL Power of Floor Winder 11/29/2022 POWER OF A TTORNEY Advance Directives and Living Will 10/24/2014 ADVANCE DIRECTIVE / LIVING WILL Power of Floor Winder 10/24/2014 POWER OF A TTORNEY Latest Code [...] Agents on File Name Relationship Healthcare Agent [facility] Communication Bright [place] Adult Child Health Care Agen t (per Health Care Power of Floor Winder document) Care Teams Edge Bonder Relationship Specialty Start Date End Date Florentin Calvo DO [address] [place] [address] PCP - General Internal Medicine 03/24/13 documented as of this encounter
--- OUTSIDE RECORDS SUMMARY | 2023-08-14 23:34 | External Medical Summary | Summary of Care ---
Author Name Unknown Organization [facility] Address [address] [place] [address] Phone [phone] Care Team Providers Care Gis Physical Scientist Name Role Phone Florentin Calvo DO Primary Care Provider [phone] Reason for Visit * Reason Comments Outpatient Testing Encounter Details Date Type Department Care Team (Late st Contact Info) Description 07/03/2023 12:40 PM EST Laboratory Laboratory, [facility] [address] [place] [address] [facility] [address] [place] [address] Iron deficiency anemia, unspecified iron deficiency anemia type; Paroxysmal atrial fibrillation (HCC) Allergies Active Allergy Reactions Criticality Noted Date Comments Azithromycin Other (Please comment) 12/04/2021 QTC prolongation at [facility] Celecoxib Hives,Rash High 03/24/2013 Other reaction(s): Rash/Hives/Itching. [...] as of this encounter (statuses as of 07/03/2023) Medications Medication Sig Dispensed Refills Start Date End Date Status [employer] w/Device KitIndications:Type 2 diabetes mellitus with hemoglobin A1c goal of less than 7.0% ([facility]) Use up to 1 times a day. [...] Wheezing. 15 g 12 06/13/2022 Active OneTouch VerTuneUp In Vitro Strip (Glucose Blood) Test blood [...] Tablet (Lipitor)Indication s:PVD (peripheral vascular disease) ([facility]),Type 2 diabetes mellitus with stage 3a chronic kidney disease and hypertension ([facility]) TAKE ONE TABLET BY MOUTH EVERY DAY DIRECTED 100 Tablet 3 03/31/2023 Active Ipratropium [place] 0.03 % Nasal Solution (Atrovent)Indicatio ns:Chronic rhinitis [...] bedtime. 90 Tablet 3 05/16/2023 Active Tiotropium [place]-Olodaterol 2.5-2.5 MCG/ACT Inhalation Aerosol Solution (Stiolto Respimat) [...] as of this encounter (statuses as of 07/03/2023) Active Problems Problem Noted Date Diagnosed Date S/P mitral valve clip implantation 03/06/2023 Atherosclerosis of [place] 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 02/13/2023 Last Assessment & Plan: Continue statin, sotalol. 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: Now just using [...] as of this encounter (statuses as of 07/03/2023) Resolved Problems Problem Noted Date Diagnosed Date [...] as of this encounter (statuses as of 07/03/2023) Immunizations Name Administration Dates Next Due COVID-19 mRNA, LNP-s, No Pre serve, 2-Dose Series (Moderna) 06/23/2021,10/25/2020,09/28/2020 COVID-19, LNP-s, No Preserve , Larry-sucrose, Ages 12+ (Pfizer) 04/09/2022 COVID-19, MRNA-LNP, 23-24, P F, 30 MCG/0.3 mL, 12 YRS AND ABOVE, IM ([facility]) 06/09/2023 Covid-19, Mrna, Lnp-s, Pf, B ivalent, 30 Mcg, IM, 12 yrs and above (SocialRadar) 09/10/2022 HEP A - Hepatitis A (Adult [...] or do you have serious difficulty hearing? No-[place] can hear w/ hearing aid 03/07/2023 Are [...] Recovery Suite Waiting Unit, H [address] [place] [address] Wilbur Rivera MD [address] [place] [address] 07/31/2023 6:00 AM EST - 07/31/2023 8:00 AM EST Surgery CRS Waiting [facility], Cardiac Recovery Suite Waiting Unit, H [address] [place] [address] Wilbur Rivera MD [address] [place] [address] PERCUTANEOUS CLOSURE LEFT ATRIAL APPENDAGE IMPLANT 07/31/2023 6:00 AM EST Office Visit Cardiology [facility], [place] [address] [place] [address] [facility] Cardiac Recovery [facility] [address] [place] [address] 08/01/2023 10:00 AM EST Home Visit [facility] 132 [place] [address] Michelle Hurt RN [address] [place] [address] 08/13/2023 8:40 AM EST Office Visit Nephrology, [facility] [address] [place] [address] Rosario Green MD [address] [place] [address] 08/22/2023 2:20 PM EST Office Visit Family Practice [address] [place] [address] 293 [facility] [address] Florentin Calvo DO 293 [facility] [address] 09/02/2023 2:30 PM EST Home Visit [facility] [address] [place] [address] Michelle Hurt, RN [address] [place], [place] [address] 09/04/2023 2:40 PM EST Office Visit Otolaryngology [facility] [address] [facility] [place], [place] [address] Cheri Castillo PA-C [address] [place], [place] [address] 09/19/2023 8:30 AM EST Procedure Only Endoscopy, [facility] [address] [place] [address] Jana Vieira, DO [address] [place] [address] 09/22/2023 3:00 PM EST Office Visit Cardiology, [facility] 132 [facility] [place] [address] Stephen Hewitt, DO [address] [place], [place] [address] 10/14/2023 2:30 PM EST Office Visit Hematology/Oncolog y [facility] 200 [facility], [place] [address] Nereyda Metz CRNP [address] [facility] [address] 10/24/2023 12:30 PM EST Office Visit Gynecology/Oncolog y, [place] [address] [facility] [place] [address] Chris Peng PA-C [address] [facility] [place] [address] 06/03/2024 2:15 PM EDT Office Visit Ophthalmology, [facility] 132 [facility] [place] [address] Wilbur Benavides, DO [address] [facility] [address] [place] [address] Pending Results Name Type Priority Associated Diagnoses Date /Time IRON SCREEN, INCLUDING TIBC Lab STAT Iron deficiency anemia, unspecified iron deficiency anemia type 07/03/2023 12:25 PM EST FERRITIN Lab STAT Iron deficiency anemia, unspecified iron deficiency anemia type 07/03/2023 12:25 PM EST CREATININE Lab STAT Paroxysmal atrial fibrillation (HCC) 07/03/2023 12:25 PM EST Scheduled Procedures Name Priority Associated Diagnoses Date/Ti me PERCUTANEOUS CLOSURE LEFT ATRIAL APPENDAGE IMPLANT Paroxysmal atrial fibrillation (HCC) 07/31/2023 6:00 AM EST Health Maintenance Due Date Last Done Comments Hepatitis B (1 of 3 - Risk 3-dose series) 2000 CKD PHOS USE SMARTSET 43736 05/01/2023 09/0 02/2022, 04/03/2022, 12/05/2020, Additional history exists HbA1c 08/23/2023 02/21/2023, 01/0 10/2022, 04/03/2022, Additional history exists TSH 09/24/2023 09/24/2022, 01/0 10/2022, 02/12/2022, Additional history exists Diabetic Foot Exam 10/01/2023 10/01/2022, 0 10/26/2021, 12/05/2020, Additional history exists GFR 11/07/2023 05/09/2023, 08/0 03/2023, 03/14/2023, Additional history exists Albumin/Creatinine Ratio 02/22/2024 023, 05/01/2022, 10/26/2021, Additional history exists CKD HGB USE SMARTSET 43787 04/11/202407/03, 07/03/2023, 04/11/2023, Additional history exists Diabetic Eye Exam 05/22/2024 [...] this encounter Medical Devices Implanted Type Area Career Services Director Device Identifier Shelf Expiration Date Model / Serial / Lot Cath Thermodilution 6fr - [id number] Implanted:Qty: 1 on 01/24/2023 by Wilbur Rivera MD at [facility] [employer] [id number] 10/15/2024 [id number] / / [id number] Mirtaclip G4 - [id number] Implanted:Qty: 1 on 03/10/2023 at [facility] [employer] 11/19/2023 [id number] / / [id number] documented as of this encounter Procedures Procedure Name Priority Date/Time Associated Diagnosis Comments DIFFERENTIAL, AUTOMATED STAT 07/03/2023 12:25 PM EST Iron deficiency anemia, unspecified iron deficiency anemia type CBC STAT 07/03/2023 12:25 PM EST Iron deficiency anemia, unspecified iron deficiency anemia type CBC STAT 07/03/2023 12:25 PM EST Iron deficiency anemia, unspecified iron deficiency anemia type DIFFERENTIAL, TECHNOLOGIST REVIEW Routine 07/03/2023 12:25 PM EST Iron deficiency anemia, unspecified iron deficiency anemia type documented in this encounter Results * DIFFERENTIAL, TECHNOLOGIST REVIEW (07/03/2023 12:25 PM EST) Pathologist [facility] nRBCs 07/03/2023 12:38 PM EST [facility] [place] 57-10 Blood Venous blood specimen / Unknown Venipuncture / Unknown 07/03/2023 12:25 PM EST 07/03/2023 12:25 PM EST Ne[facility] LAB BLOOD ORDER [facility] [place] 57-10 [address] [place] [address] * (ABNORMAL) DIFFERENTIAL, AUTOMATED (07/03/2023 12:25 PM EST) Pathologist [facility] WBC 8.87 4.00 - 10.80 K/uL 07/03/2023 12:38 PM EST [facility] [place] 57[facility]10 Neutrophils % 67.5 40.0 - 75.0 % 07/03/2023 12:38 PM EST [facility] [place] 57[facility]10 Lymphocytes % 15.7(L) 18.0 - 42.0 % 07/03/2023 12:38 PM EST [facility] [place] 57-10 Monocytes % 8.8 1.0 - 11.0 % 07/03/2023 12:38 PM EST [facility] [place] 57-10 Eosinophils % 7.7(H) 0.0 - 6.0 % 07/03/2023 12:38 PM EST [facility] [place] 57-10 Basophils % 0.3 0.0 - 2.0 % 07/03/2023 12:38 PM EST [facility] [place] 57[facility]10 Absolute Neutrophils 5.99 1.80 - 7.70 K/uL 07/03/2023 12:38 PM EST [facility] [place] 57-10 Absolute Lymphocytes 1.39 1.00 - 4.80 K/ul 07/03/2023 12:38 PM EST [facility] [place] 57-10 Absolute Monocytes 0.78 0.00 - 1.10 K/uL 07/03/2023 12:38 PM EST [facility] [place] 57-10 Absolute Eosinophils 0.68 0.00 - 0.70 K/uL 07/03/2023 12:38 PM EST [facility] [place] 57-10 Absolute Basophils 0.03 0.00 - 0.20 K/uL 07/03/2023 12:38 PM EST [facility] [place] 57-10 Blood Venous blood specimen / Unknown Venipuncture / Unknown 07/03/2023 12:25 PM EST 07/03/2023 12:25 PM EST Ne[facility] [facility] LAB BLOOD ORDER [facility] [place] [address] [place] [address] * (ABNORMAL) CBC (07/03/2023 12:25 PM EST) WBC 8.87 4.00 - 10.80 K/uL 07/03/2023 12:38 PM EST [facility] [place] 57-10 RBC 3.79 3.85 - 5.15 M/uL 07/03/2023 12:38 PM EST [facility] [place] 57-10 HGB 11.4(L) 12.0 - 15.3 g/dL 07/03/2023 12:38 PM EST [facility] [place] 57-10 HCT 35.6(L) 36.0 - 45.2 % 07/03/2023 12:38 PM EST [facility] [place] 57-10 MCV 93.9 81.5 - 97.5 fL 07/03/2023 12:38 PM EST [facility] [place] 57-10 MCH 30.1 27.0 - 34.0 pg 07/03/2023 12:38 PM EST [facility] [place] 57-10 MCHC 32.0 32.0 - 36.0 g/dL 07/03/2023 12:38 PM EST [facility] [place] 57-10 RDW 17.1 11.5 - 15.5 % 07/03/2023 12:38 PM EST [facility] [place] 57-10 PLT 218 140 - 400 K/uL 07/03/2023 12:38 PM EST [facility] [place] 57-10 MPV 9.9 6.6 - 11.1 fL 07/03/2023 12:38 PM EST [facility] [place] 57[facility]10 Blood Venous blood specimen / Unknown Venipuncture / Unknown 07/03/2023 12:25 PM EST 07/03/2023 12:25 PM EST Nereyda Kelsey [facility] BLOOD ORDER [facility] [place] [facility] [place] [address] documented in this encounter Visit Diagnoses Diagnosis Paroxysmal atrial fibrillation (HCC)- Primary Atrial fibrillation Iron deficiency anemia, unspecified iron deficiency anemia type Paroxysmal atrial fibrillation (HCC) Atrial fibrillation Paroxysmal atrial fibrillation (HCC) Atrial fibrillation documented in this encounter Advance Directives Documents on File Type Date Recorded 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
--- OUTSIDE RECORDS SUMMARY | 2023-08-14 23:34 | External Medical Summary | Summary of Care ---
Author Name Unknown Organization [facility] Address [address] [place] [address] Phone [phone] Care Team Providers Care Director Of Radio Services Name Role Phone Florentin Calvo DO Primary Care Provider [phone] Reason for Visit * Reason Comments [facility]: Maintenance Encounter Details Date Type Department Care Team (Late st Contact Info) Description 07/02/2023 4:00 PM EST [facility] Visit [facility], [facility] 132 [facility] [place] [address] Michelle Hurt RN 132 [facility] [place] [address] Allergies Active Allergy Reactions Criticality Noted Date Comments Azithromycin Other (Please comment) 12/04/2021 QTC prolongation at [facility] Celecoxib Hives,Rash High 03/24/2013 Other reaction(s): Rash/Hives/Itching. [...] as of this encounter (statuses as of 07/02/2023) Medications Medication Sig Dispensed Refills Start Date End Date Status RFIDeasTouch Verio w/Device KitIndications:Type 2 diabetes mellitus with hemoglobin A1c goal of less than 7.0% ([facility]) Use up to 1 times [...] (Lipitor)Indication s:PVD (peripheral vascular disease) ([facility]),Type 2 diabetes mellitus with stage 3a chronic kidney disease and hypertension ([facility]) TAKE ONE TABLET BY MOUTH EVERY DAY DIRECTED 100 Tablet 3 03/31/2023 Active Ipratropium [place] 0.03 % Nasal Solution (Atrovent)Indicatio ns:Chronic rhinitis [...] bedtime. 90 Tablet 3 05/16/2023 Active Tiotropium [place]-Olodaterol 2.5-2.5 MCG/ACT Inhalation Aerosol Solution (Stiolto Respimat) [...] as of this encounter (statuses as of 07/02/2023) Active Problems Problem Noted Date Diagnosed Date S/P mitral valve clip implantation 03/06/2023 Atherosclerosis of [place] 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 02/13/2023 Last Assessment & Plan: Continue statin, sotalol. 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 using [...] as of this encounter (statuses as of 07/02/2023) Resolved Problems Problem Noted Date Diagnosed Date [...] as of this encounter (statuses as of 07/02/2023) Immunizations Name Administration Dates Next Due COVID-19 mRNA, LNP-s, No Pre serve, 2-Dose Series (Moderna) 06/23/2021,10/25/2020,09/28/2020 COVID-19, LNP-s, No Preserve , Larry-sucrose, Ages 12+ (Pfizer) 04/09/2022 COVID-19, MRNA-LNP, 23-24, P F, 30 MCG/0.3 mL, 12 YRS AND ABOVE, IM ([facility]) 06/09/2023 Covid-19, Mrna, Lnp-s, Pf, B ivalent, [...] Sign Reading Time Taken Comments Blood Pressure 114/64 07/02/2023 12:36 PM EST Pulse 70 07/02/2023 12:36 PM EST Temperature 36.2 C (97.2 F) 07/02/2023 12:[address] Respiratory Rate 18 07/02/2023 12:36 PM EST Oxygen Saturation 98% 07/02/2023 12:36 PM EST Inhaled Oxygen Concentration - - Weight 71.9 kg (158 lb 8 oz) 07/02/2023 12:36 PM EST Height - - Body Mass Index 26.38 05/23/2023 3:05 PM EDT documented in this encounter Functional Status Functional Status Response Date of Assess ment Are you deaf or do you have serious difficulty hearing? No-CAHUILLA can hear w/ hearing aid 03/07/2023 Are [...] Progress Notes * Michelle Hurt RN - 07/02/2023 12:19 PM EST [facility] Disciplinary Hearing Officer Visit Date: 07/02/2023 Time: 12:19 PM Name: Inga Barakat : 1940 Current Concerns: Pt seen for return RNCM visit h/o surgical intervention of Tricuspid regurgitation Medical history- CHF, Pulmonary HTN, Afib Weighs 3x a week Has been staying stable between 155-158 lbs She states she would like to be 10 lbs less but does not feel she is retaining much fluid She states she goes up and and down with retaining fluid but states it has been much better lately She does report that she has been feeling more cold lately States the house will be warm and everyone is comfortable but she needs to wrap up with a heating blanket Last labs of cbc and iron were done I March and not due again until September. TE sent to pcp to see if he would like labs checked sooner Plan is to have watchman device implanted 07/31 Physical Exam: BP 114/64 | Pulse 70 | Temp 36.2 C (97.2 F) | Resp 18 | Wt 71.9 kg (158 lb 8 oz) | SpO2 98% | BMI 26.38 kg/m | BSA 1.82 m Pain 0 [...] Cardiovascular: Positive for leg swelling. Gastrointestinal: Negative. Endocrine: Positive for cold intolerance. Genitourinary: Negative. Musculoskeletal: Negative. Skin: Negative. Neurological: Negative. Psychiatric/Behavioral: Negative. Medication Reconciliation: (See medication list) Does patient take medications as ordered: Yes Patient Well Being: PHQ2/9: No questionnaires available. No change in living situation. [facility]-10 Completed this Visit: No. Routine visit Advanced Care Planning: Living Will. and Healthcare POA. Patient's Goals of Care: Recover from valve surgery Less SOB Resolve leg pain and numbness [...] Fall precautions- walker with ambulation Fluids encouraged RN CM follow up in 6 weeks Home Interventions Provided: Home Intervention: Other; eval Consulted PCP/Specialist Reinforced current Plan of Care, including self-management and medication regimen Patient's 'Red Flags': Weight gain of 2-3 lbs in 24 hrs or 5 lbs in one week S/s of UTI SOB above baseline Patient Needs to Remember: Call [facility] at with any new or worsening health concerns or problems, red flag symptoms. Referrals Needed: Other none Follow Up: Is there cellular connectivity/connectivity in the home? Yes Does the patient have internet in the home? Yes Patient encouraged to call the intake phone number for all urgent but not emergent issues. Is the patient new to [facility] within the last 30 days? No, Assess appropriateness for upcoming telehealth visits. Cancel telehealth visits & schedule home visit with care steam fitter supervisor(s)as indicated. Provider is in agreement with Plan of Care: Yes Scheduled to follow up with patient in one month, sooner as needed. Michelle Hurt RN 07/02/2023 12:19 PM documented in this encounter Plan of Treatment Upcoming Encounters Date Type Department Care Team (Late st Contact Info) Description 07/31/2023 6:00 AM EST Hospital Encounter CRS Waiting [facility], Cardiac Recovery Suite Waiting Unit, [address] [place] [address] Wilbur Rivera MD [address] [place] [address] 07/31/2023 6:00 AM EST - 07/31/2023 8:00 AM EST Surgery CRS Waiting [facility], Cardiac Recovery Suite Waiting Unit, [address] [place] [address] Wilbur Rivera MD [address] [facility] [place] [address] PERCUTANEOUS CLOSURE LEFT ATRIAL APPENDAGE IMPLANT 07/31/2023 6:00 AM EST Office Visit Cardiology [facility], [place] [address] [facility] [place] [address] [place], Cardiac Recovery [facility] [address] [place] [facility] [place] [address] 08/01/2023 10:00 AM EST [facility] Visit [facility], [facility] [address] [place] [address] Michelle Hurt RN 132 [facility] [place] [address] 08/13/2023 8:40 AM EST Office Visit Nephrology, [facility] [address] [place] [address] Rosario Green MD [address] [place] [address] 08/22/2023 2:20 PM EST Office Visit Family Practice [address] [place] [address] [address] [place] [address] Florentin Calvo, [address] [place] [address] 09/02/2023 2:30 PM EST [facility] 132 [facility] [place] [address] Michelle Hurt, RN 132 [place] [address] 09/04/2023 2:40 PM EST Office Visit Otolaryngology [facility] [address] [facility] [place] [address] Cheri Castillo PA-C 132 [facility] [place] [address] 09/19/2023 8:30 AM EST Procedure Only Endoscopy, Silvino Russell [address] [place] [address] Jana Vieira, DO 132 [facility] [place] [address] 09/22/2023 3:00 PM EST Office Visit Cardiology, [facility] 132 [facility] [place] [address] Stephen Hewitt, DO 132 [facility] [place] [address] 10/14/2023 2:30 PM EST Office Visit Hematology/Oncolog y [facility] [address] [facility], [place] [address] Nereyda Metz, JESS 400 [facility] [place] [address] 10/24/2023 12:30 PM EST Office Visit Gynecology/Oncolog y, [place] [address] [place] [address] Chris Peng PA-C [address] [place] [address] 06/03/2024 2:15 PM EDT Office Visit Ophthalmology, [facility] 132 [facility] [place] [address] Wilbur Benavides, DO [facility] [place] [address] Scheduled Procedures Name Priority Associated Diagnoses Date/Ti me PERCUTANEOUS CLOSURE LEFT ATRIAL APPENDAGE IMPLANT Paroxysmal atrial fibrillation (HCC) 07/31/2023 6:00 AM EST Health Maintenance Due Date Last Done Comments Hepatitis B (1 of 3 - Risk 3-dose series) 2000 CKD PHOS USE SMARTSET 08180 05/01/2023 09/0 02/2022, 04/03/2022, 12/05/2020, Additional history exists HbA1c 08/23/2023 02/21/2023, 01/0 10/2022, 04/03/2022, Additional history exists TSH 09/24/2023 09/24/2022, 01/0 10/2022, 02/12/2022, Additional history exists Diabetic Foot Exam 10/01/2023 10/01/2022, 0 10/26/2021, 12/05/2020, Additional history exists GFR 11/07/2023 05/09/2023, 08/0 03/2023, 03/14/2023, Additional history exists Albumin/Creatinine Ratio 02/22/2024 023, 05/01/2022, 10/26/2021, Additional history exists CKD HGB USE SMARTSET 97299 04/11/202404/11, 04/11/2023, 04/01/2023, Additional history exists Diabetic [...] this encounter Medical Devices Implanted Type Area Heat Engineering Teacher Device Identifier Shelf Expiration Date Model / Serial / Lot Cath Thermodilution 6fr - [id number] Implanted:Qty: 1 on 01/24/2023 by Wilbur Rivera MD at [facility] [employer] [id number] 10/15/2024 [id number] / / [id number] Mirtaclip G4 - [id number] Implanted:Qty: 1 on 03/10/2023 at [facility] [employer] 11/19/2023 [id number] / / [id number] documented as of this encounter Advance Directives Documents on File Type Date Recorded Patient Sales And Service Representative Expl anation Advance Directives and Living Will 11/29/2022 ADVANCE DIRECTIVE / LIVING WILL Power of Elementary School Social Worker 11/29/2022 POWER OF A TTORNEY Advance Directives and Living Will 10/24/2014 ADVANCE DIRECTIVE / LIVING WILL Power of Elementary School Social Worker 10/24/2014 POWER OF A TTORNEY Latest [...] Agen t (per Health Care Power of Elementary School Social Worker document) Care Teams Director Of Radio Services Relationship Specialty Start Date End Date Florentin Calvo DO [address] [address] PCP - General Internal Medicine 03/24/13 documented as of this encounter
--- OUTSIDE RECORDS SUMMARY | 2023-08-14 23:34 | External Medical Summary | Summary of Care ---
Author Name Unknown Organization [facility] Address [address] [place] [address] Phone [phone] Care Team Providers Care Bundle Shaker Name Role Phone Florentin Calvo DO Primary Care Provider [phone] Encounter Details Date Type Department Care Team (Late st Contact Info) Description 07/18/2023 Telephone Access Center, [place] [address] [facility] *DO NOT REMOVE THIS DEPARTMENT* [place] [address] Services, Scheduling [address] [place] [address] Allergies Active Allergy Reactions Criticality Noted Date Comments Azithromycin Other (Please comment) 12/04/2021 QTC prolongation at [facility] Celecoxib Hives,Rash High 03/24/2013 Other reaction(s): Rash/Hives/Itching. [...] as of this encounter (statuses as of 07/18/2023) Medications Medication Sig Dispensed Refills Start Date End Date Status The [address] Girl w/Device KitIndications:Type 2 diabetes mellitus with hemoglobin [...] 100 Tablet 3 03/31/2023 Active Ipratropium [place] 0.03 % Nasal Solution (Atrovent)Indicatio ns:Chronic rhinitis [...] 90 Tablet 3 05/16/2023 Active Tiotropium [place]-Olodaterol 2.5-2.5 MCG/ACT Inhalation Aerosol Solution (Stiolto Respimat) [...] as of this encounter (statuses as of 07/18/2023) Active Problems Problem Noted Date Diagnosed Date S/P mitral valve clip implantation 03/06/2023 Atherosclerosis of [place] 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 02/13/2023 Last Assessment & Plan: Continue statin, sotalol. 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 & Plan: Now just using [...] as of this encounter (statuses as of 07/18/2023) Resolved Problems Problem Noted Date Diagnosed Date [...] as of this encounter (statuses as of 07/18/2023) Immunizations Name Administration Dates Next Due COVID-19 mRNA, LNP-s, No Pre serve, 2-Dose Series (Moderna) 06/23/2021,10/25/2020,09/28/2020 COVID-19, LNP-s, No Preserve , Larry-sucrose, Ages 12+ (Pfizer) 04/09/2022 COVID-19, MRNA-LNP, 23-24, P F, 30 MCG/0.3 mL, 12 YRS AND ABOVE, IM ([employer]) 06/09/2023 Covid-19, Mrna, Lnp-s, Pf, B ivalent, [...] encounter Miscellaneous Notes * Telephone Encounter - Sheela Becerra RN - 07/18/2023 2:36 PM EST Called patient- she states that she had lab work 07/03/23, but did not hear anything about the results. She noticed that her ferritin level was high. Reviewed with patient that ferritin has been high since iron infusions in October 2022. She also takes oral iron supplement, which helps to keep itelevated. Hgb 11.3 which is stable. Advised patient to repeat lab work in 3 months (prior to 10/14 follow up), but if she feels like she is more anemic prior to that time to let us know and we can check lab work sooner. Patient verbalized understanding. * Telephone Encounter - Nancy Arrieta OSA - 07/18/2023 1:25 PM EST Pt calling asking to speak to Nereyda Isaías, Asking for call back. documented in this encounter Plan of Treatment Upcoming Encounters Date Type Department Care Team (Latest Contact Info) Description 07/22/2023 2:15 PM EST Immunization/Injecti on Family Practice [address] [address] [place], Nurse Fam Prac [address] [address] 07/22/2023 2:20 PM EST Immunization Ancillary [address] [place] [address] [place], Covid19 Vaccine [address] [address] 07/23/2023 2:40 PM EST Office Visit Otolaryngology [facility] 132 [place] [address] Cheri Castillo PA-C [address] [place] [address] 07/31/2023 6:00 AM EST Hospital Encounter CRS Waiting [facility], Cardiac Recovery Suite Waiting Unit, [address] [place] [id number] Wilbur Rivera MD [address] [place] [address] 07/31/2023 6:00 AM EST - 07/31/2023 8:00 AM EST Surgery CRS Waiting [facility], Cardiac Recovery Suite Waiting Unit, [address] [place] [address] Wilbur Rivera MD [address] [place] [address] PERCUTANEOUS CLOSURE LEFT ATRIAL APPENDAGE IMPLANT 07/31/2023 6:00 AM EST Office Visit Cardiology [facility], [place] [address] [place] [address] [facility] Cardiac Recovery [facility] [address] [place] [address] 08/01/2023 10:00 AM EST [facility] Visit [facility] [place], [facility] [address] [place] [address] Michelle Hurt RN [address] [place] [address] 08/13/2023 8:40 AM EST Office Visit Nephrology, [facility] [address] [place] [address] Rosario Green MD [address] [place] [address] 08/22/2023 2:20 PM EST Office Visit Family Practice [address] [place] [address] [address] [place] [address] Florentin Calvo, [address] [place] [address] 09/02/2023 2:30 PM EST [facility] Visit [facility], [facility] [address] [place] [address] Michelle Hurt, RN [address] [place] [address] 09/19/2023 8:30 AM EST Procedure Only Endoscopy, Silvino Russell [address] [place] [address] Jana Vieira, DO [address] [facility] [place] [address] 09/22/2023 3:00 PM EST Office Visit Cardiology, [facility] 132 [facility] [place] [address] Stephen Hewitt, DO 132 [facility] [place] [address] 10/14/2023 2:30 PM EST Office Visit Hematology/Oncolog y [facility] [address] [facility], [place] [address] Nereyda Metz CRNP 400 [facility] [place] [address] 10/24/2023 2:30 PM EST Office Visit Gynecology/Oncolog y, [place] [address] [place] [address] Vanessa Eelna PA-C [address] [place] [address] 06/03/2024 2:15 PM EDT Office Visit Ophthalmology, [facility] [address] [facility] [place] [address] Wilbur Benavides, DO [facility] [place] [address] Scheduled Procedures Name Priority Associated Diagnoses Date/Ti me PERCUTANEOUS CLOSURE LEFT ATRIAL APPENDAGE IMPLANT Paroxysmal atrial fibrillation (HCC) 07/31/2023 6:00 AM EST Health Maintenance Due Date Last Done Comments Hepatitis B (1 of 3 - Risk 3-dose series) 2000 CKD PHOS USE SMARTSET 69541 05/01/2023 09/0 02/2022, 04/03/2022, 12/05/2020, Additional history [...] Screening 05/23/2024 05/23/2023 CKD HGB USE SMARTSET 26581 07/03/202407/03, 07/03/2023, 04/11/2023, Additional history exists DXA [...] this encounter Medical Devices Implanted Type Area Alcohol Rubber Device Identifier Shelf Expiration Date Model / Serial / Lot Cath Thermodilution 6fr - [id number] Implanted:Qty: 1 on 01/24/2023 by Wilbur Rivera MD at [facility] [employer] [id number] 10/15/2024 [id number] / / [id number] Mirtaclip G4 - [id number] Implanted:Qty: 1 on 03/10/2023 at [facility] [employer] 11/19/2023 [id number] / / [id number] documented as of this encounter Advance Directives Documents on File Type Date Recorded 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 Advance Directives and Living Will 11/29/2022 ADVANCE DIRECTIVE / LIVING WILL Power of Franchise Manager 11/29/2022 POWER OF A TTORNEY Advance Directives and Living Will 10/24/2014 ADVANCE DIRECTIVE / LIVING WILL Power of Franchise Manager 10/24/2014 POWER OF A TTORNEY Latest [...] Agents on File Name Relationship Healthcare Agent [facility] p Communication Bright Barakat Adult Child Health Care Agen t (per Health Care Power of Franchise Manager document) Care Teams Bundle Shaker Relationship Specialty Start Date End Date Florentin Calvo DO [address] [place] [address] PCP - General Internal Medicine 03/24/13 documented as of this encounter
--- OUTSIDE RECORDS SUMMARY | 2023-08-14 23:34 | External Medical Summary ---
Author Name Unknown Address Unknown Organization K01:LABORATORY [facility] - [address] [facility] [address] Laboratory Report Ordering Provider Test Date Status PARVIZ ORR 07/03/2023 12:25:44 Final Observation Date Value Abnormality Reference (Units ) Status Ferritin 07/03/2023 12:25:44 471 Above high normal 13 -150 (ng/mL) Final Postmenopausal women have hi gher ferritin levels than pre-menopausal women. The above reference interval is based on pre-menopausal women. Performing Location [facility] [address] [facility] [address]
--- OUTSIDE RECORDS SUMMARY | 2023-08-14 23:34 | External Medical Summary | Summary of Care ---
Author Name Unknown Organization [facility] Address [address] [place] [address] Phone [phone] Care Team Providers Care Clerk Of Court Name Role Phone Florentin Calvo DO Primary Care Provider [phone] Reason for Visit * Reason Onset Date Comments [facility]: Maintenance 07/02/2023 Encounter Details Date Type Department Care Team (Late st Contact Info) Description 07/02/2023 Telephone [facility], [facility] 132 [facility] [place] [address] Michelle Hurt RN 132 [facility] [place] [address] [facility]: Maintenance Allergies Active Allergy Reactions Criticality Noted Date Comments Azithromycin Other (Please comment) 12/04/2021 QTC prolongation at [facility] Celecoxib Hives,Rash High 03/24/2013 Other reaction(s): Rash/Hives/Itching. [...] Dispensed Refills Start Date End Date Status YoPro GlobalTouch Verio w/Device KitIndications:Type 2 diabetes mellitus with hemoglobin A1c goal of less than 7.0% ([facility]) Use up to 1 times a day. [...] (Lipitor)Indication s:PVD (peripheral vascular disease) ([facility]),Type 2 diabetes mellitus with stage 3a chronic kidney disease and hypertension ([facility]) TAKE ONE TABLET BY MOUTH EVERY DAY DIRECTED 100 Tablet 3 03/31/2023 Active Ipratropium [place] 0.03 % Nasal Solution (Atrovent)Indicatio ns:Chronic rhinitis [...] bedtime. 90 Tablet 3 05/16/2023 Active Tiotropium [place]-Olodaterol 2.5-2.5 MCG/ACT Inhalation Aerosol Solution (Stiolto Respimat) [...] mitral valve clip implantation 03/06/2023 Atherosclerosis of 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 02/13/2023 Last Assessment & Plan: Continue statin, sotalol. 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 No-[place] can hear w/ hearing aid 03/07/2023 Are [...] encounter Miscellaneous Notes * Telephone Encounter - Michelle Hurt RN - 07/02/2023 3:22 PM EST Pt aware and will go to [facility] to have drawn. * Telephone Encounter - Florentin Calvo DO - 07/02/2023 1:34 PM EST Check CBC, iron screen, and Ferritin Orders signed * Telephone Encounter - Michelle Hurt RN - 07/02/2023 12:[address] Calvo, Pt seen for home visit. She is doing pretty well but does report that she has been feeling more cold lately. States the house will be warm and everyone is comfortable but she needs to wrap up with a heating blanket. Denies any other symptoms such as fatigue/weakness, SOB, etc. With hx of anemia, would you like her to get her CBC checked? Please advise. Thank you! documented in this encounter Plan of Treatment Upcoming Encounters Date Type Department Care Team (Late st Contact Info) Description 07/02/2023 4:00 PM EST [facility] [address] [place] [address] Michelle Hurt RN 132 [place] [address] 07/31/2023 6:00 AM EST Hospital Encounter [facility] [place] Card[facility] Recovery Suite Waiting Unit, [address] [place] [address] Wilbur Rivera MD [address] [place] [address] 07/31/2023 6:00 AM EST - 07/31/2023 8:00 AM EST Surgery [facility] [place]ing [facility] Card[facility] Recovery Suite Waiting Unit, [address] [place] [address] Wilbur Rivera MD [address] [place] [address] PERCUTANEOUS CLOSURE LEFT ATRIAL APPENDAGE IMPLANT 07/31/2023 6:00 AM EST Office Visit Cardiology [facility], [place] [address] [place] [address] [place], Cardiac Recovery [facility] [address] [place], [place] [address] 08/01/2023 10:00 AM EST [facility] Visit [facility] 132 [facility] [place] [address] Michelle Hurt, RN 132 [place] [address] 08/13/2023 8:40 AM EST Office Visit Nephrology, [facility] 200 [place] [address] Rosario Green MD 200 [place] [address] 08/22/2023 2:20 PM EST Office Visit Family Practice [address] [place] [address] 293 [facility] [place] [address] Florentin Calvo DO [address] [place] [address] 09/02/2023 2:30 PM EST [facility] Visit [facility] 132 [facility] [place] [address] Michelle Hurt, RN [address] [facility] [place] [address] 09/04/2023 2:40 PM EST Office Visit Otolaryngology [facility] 132 [place] [address] Cheri Castillo PA-C 132 [place] [address] 09/19/2023 8:30 AM EST Procedure Only Endoscopy, Silvino Russell 132 [facility] [place] [address] Jana Vieira, DO [address] [place] [address] 09/22/2023 3:00 PM EST Office Visit Cardiology, [facility] 132 [facility] [place] [address] Stephen Hewitt, DO [address] [facility] [place] [address] 10/14/2023 2:30 PM EST Office Visit Hematology/Oncolog y [facility] [address] [place] [address] Nereyda Metz, JESS 400 [facility] [place] [address] 10/24/2023 12:30 PM EST Office Visit Gynecology/Oncolog y, [place] [address] [place] [address] Chris Peng PA-C [address] [place] [address] 06/03/2024 2:15 PM EDT Office Visit Ophthalmology, [facility] 132 [facility] [place] [address] Wilbur Benavides, DO [facility] [place] [address] Scheduled Orders Name Type Priority Associated Diagnoses Orde r Schedule CBC WITH WBC DIFFERENTIAL Lab Routine Iron deficiency anemia, unspecified iron deficiency anemia type Expected: 07/02/2023 (Approximate), Expires: 07/02/2024 FERRITIN Lab Routine Iron deficiency anemia, unspecified iron deficiency anemia type Expected: 07/02/2023 (Approximate), Expires: 07/01/2024 IRON SCREEN, INCLUDING TIBC Lab Routine Iron deficiency anemia, unspecified iron deficiency anemia type Expected: 07/02/2023 (Approximate), Expires: 07/01/2024 Scheduled Procedures Name Priority Associated Diagnoses Date/Ti me PERCUTANEOUS CLOSURE LEFT ATRIAL APPENDAGE IMPLANT Paroxysmal atrial fibrillation (HCC) 07/31/2023 6:00 AM EST Health Maintenance Due Date Last Done Comments Hepatitis B (1 of 3 - Risk 3-dose series) 2000 CKD PHOS USE SMARTSET 40246 05/01/2023 09/0 02/2022, 04/03/2022, 12/05/2020, Additional history exists HbA1c 08/23/2023 02/21/2023, /0 10/2022, 04/03/2022, Additional history exists TSH 09/24/2023 09/24/2022, 01/0 10/2022, 02/12/2022, Additional history exists Diabetic Foot Exam 10/01/2023 10/01/2022, 0 10/26/2021, 12/05/2020, Additional history exists GFR 11/07/2023 05/09/2023, 08/0 03/2023, 03/14/2023, Additional history exists Albumin/Creatinine Ratio 02/22/2024 023, 05/01/2022, 10/26/2021, Additional history exists CKD HGB USE SMARTSET 92726 04/11/202404/11, 04/11/2023, 04/01/2023, Additional history exists Diabetic [...] this encounter Medical Devices Implanted Type Area Hog Ringer Device Identifier Shelf Expiration Date Model / Serial / Lot Cath Thermodilution 6fr - [id number] Implanted:Qty: 1 on 01/24/2023 by Wilbur Rivera MD at [facility] [employer] [id number] 10/15/2024 [id number] / / [id number] Mirtaclip G4 - [id number] Implanted:Qty: 1 on 03/10/2023 at [facility] [employer] 11/19/2023 [id number] / / [id number] documented as of this encounter Visit Diagnoses Diagnosis Paroxysmal atrial fibrillation (HCC)- Primary Atrial fibrillation Iron deficiency anemia, unspecified iron deficiency anemia type- Primary Paroxysmal atrial fibrillation (HCC) Atrial fibrillation documented in this encounter Advance Directives Documents on File Type Date Recorded 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 Advance Directives and Living Will 11/29/2022 ADVANCE DIRECTIVE / LIVING WILL Power of Collection Coordinator 11/29/2022 POWER OF A TTORNEY Advance Directives and Living Will 10/24/2014 ADVANCE DIRECTIVE / LIVING WILL Power of Collection Coordinator 10/24/2014 POWER OF A TTORNEY Latest Code [...] File Name Relationship Healthcare Agent [facility] Adult Child Health Care Agen t (per Health Care Power of Collection Coordinator document) Care Teams Clerk Of Court Relationship Specialty Start Date End Date Florentin Calvo DO [address] [place] [address] PCP - General Internal Medicine 03/24/13 documented as of this encounter
--- OUTSIDE RECORDS SUMMARY | 2023-08-14 23:34 | External Medical Summary | Summary of Care ---
Author Name Unknown Organization [facility] Address [address] [place] [address] Phone [phone] Care Team Providers Care Manager Of Human Resources Name Role Phone Grey Calvo DO Primary Care Provider [phone] Reason for Visit * Reason Comments Medication Refill Encounter Details Date Type Department Care Team (Late st Contact Info) Description 07/22/2023 Refill Nephrology, [facility] 200 [place] [address] Grey Calvo DO [address] [place] [address] Allergies Active Allergy Reactions Criticality Noted Date Comments Azithromycin Other (Please comment) 12/04/2021 QTC prolongation at [facility] Celecoxib Hives,Rash High 03/24/2013 Other reaction(s): Rash/Hives/Itching. [...] as of this encounter (statuses as of 07/22/2023) Medications Medication Sig Dispensed Refills Start Date End Date Status MySQLTouch Verio w/Device KitIndications:Type 2 diabetes mellitus with hemoglobin A1c goal of less than 7.0% ([facility]) Use up to 1 times a [...] Oral Tablet (Lipitor)Indication s:PVD (peripheral vascular disease) ([facility]),Type 2 diabetes mellitus with stage 3a chronic kidney disease and hypertension ([facility]) TAKE ONE TABLET BY MOUTH EVERY DAY DIRECTED 100 Tablet 3 03/31/2023 Active Ipratropium [place] 0.03 % Nasal Solution (Atrovent)Indicatio ns:Chronic rhinitis [...] bedtime. 90 Tablet 3 05/16/2023 Active Tiotropium [place]-Olodaterol 2.5-2.5 MCG/ACT Inhalation Aerosol Solution (Stiolto Respimat) Inhale 2 Puffs by mouth in the morning. 12 g 3 05/23/2023 Active Levothyroxine Sodium 125 MCG Oral Tablet (Levoxyl) TAKE ONE TABLET BY MOUTH FIRST THING IN THE MORNING 100 Tablet 3 07/22/2023 4 Active Abrysvo 120 MCG/0.5ML Intramuscular Solution Reconstituted (RSV Pre-Fusion F A&B Vac [facility])Indications:Ne ed for RSV vaccination Inject 0.5 mL [...] as of this encounter (statuses as of 07/22/2023) Active Problems Problem Noted Date Diagnosed Date S/P mitral valve clip implantation 03/06/2023 Atherosclerosis of [place] 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 02/13/2023 Last Assessment & Plan: Continue statin, sotalol. 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 Last Assessment & Plan: Now just using [...] as of this encounter (statuses as of 07/22/2023) Resolved Problems Problem Noted Date Diagnosed Date [...] as of this encounter (statuses as of 07/22/2023) Immunizations Name Administration Dates Next Due COVID-19 mRNA, LNP-s, No Pre serve, 2-Dose Series (Moderna) 06/23/2021,10/25/2020,09/28/2020 COVID-19, LNP-s, No Preserve , Larry-sucrose, Ages 12+ ([employer]) 04/09/2022 COVID-19, MRNA-LNP, 23-24, P F, 30 MCG/0.3 mL, 12 YRS AND ABOVE, IM ([facility]) 06/09/2023 Covid-19, Mrna, Lnp-s, Pf, B ivalent, 30 Mcg, IM, 12 yrs and above ([employer]) 09/10/2022 HEP A - Hepatitis A (Adult [...] or do you have serious difficulty hearing? No-[place] can hear w/ hearing aid 03/07/2023 Are [...] Telephone Encounter - Grey Calvo DO - 07/22/2023 4:16 PM ESTSigned Prescriptions: Disp Refills Levothyroxine Sodium 125 MCG Oral Tablet (*100 Ta*3 Sig: TAKE ONE TABLET BY MOUTH FIRST THING IN THE MORNING Authorizing Provider: GREY CALVO * Telephone Encounter - Hilda Aawd LPN - 07/22/2023 3:16 PM ESTPending Prescriptions: Disp Refills Levothyroxine Sodium 125 MCG Oral Tablet (*100 Ta*3 Sig: TAKE ONE TABLET BY MOUTH FIRST THING IN THE MORNING * Telephone Encounter - Hilda Awad LPN - 07/22/2023 3:15 PM EST Did you pend patient's preferred pharmacy and medication before forwarding?yes Pharmacy: [facility] Pending Prescriptions: Disp Refills Levothyroxine Sodium 125 MCG Oral Tablet *100 Ta*3 Sig: TAKE ONE TABLET BY MOUTH FIRST THING IN THE MORNING Last Visit: 05/09/2023 (in office), Visit date not found (telemedicine) Next Visit: 08/13/2023 If no future appointments scheduled, and last appointment is greater than a year ago, please schedule patient for a follow-up appointment Last date the medication was ordered: Is this request for a controlled substance?No Urine Drug Screen:No results found. However, due to the size of the patient record, not all encounters were searched. Please check Results Review for a complete set of results. Patient Phone Numbers Labs: Lab Results Component Value Date/Time CREAT 1.5 (H) 07/03/2023 12:25 PM CREAT 1.27 (A) 08/07/2022 12:00 AM CREAT 1.3 (H) 06/13/2020 03:27 PM POTASSIUM 4.8 05/09/2023 01:12 PM POTASSIUM 3.8 03/06/2023 09:10 AM POTASSIUM 4.6 08/07/2022 12:00 AM POTASSIUM 4.5 06/13/2020 03:27 PM TSH 0.32 09/24/2022 02:47 PM TSH 2.887 11/26/2021 12:00 AM TSH 0.51 01/03/2020 11:52 AM LDLCALC 32 02/21/2023 12:31 PM LDLCALC 102 06/13/2020 03:27 PM LDLDIRECT 67 10/26/2021 02:36 PM LDLDIRECT NOT APPLICABLE 06/13/2020 03:27 PM LDLDIRECT 147 (H) 02/27/2016 11:47 AM ALT 31 03/14/2023 10:53 AM ALT 21 07/25/2020 12:54 PM HGBA1C 6.5 (H) 02/21/2023 12:31 PM HGBA1C 6.4 (H) 06/13/2020 03:27 PM * Telephone Encounter - Nereyda Mcclain LPN - 07/22/2023 3:13 PM ESTPending Prescriptions: Disp Refills Levothyroxine Sodium 125 MCG Oral Tablet (*100 Ta*1 Sig: TAKE ONE TABLET BY MOUTH FIRST THING IN THE MORNING documented in this encounter Plan of Treatment Upcoming Encounters Date Type Department Care Team (Late st Contact Info) Description 07/23/2023 2:40 PM EST Office Visit [facility]ol[facility] [place] [address] Cheri Castillo PA-C 132 [facility] [place] [address] 07/31/2023 6:00 AM EST Hospital Encounter [facility] [place]ing [facility], Card[facility] Suite Waiting Unit, H [address] [place] [address] Wilbur Rivera MD [address] [place] [address] 07/31/2023 6:00 AM EST - 07/31/2023 8:00 AM EST Surgery CRS Waiting [facility], Cardiac Recovery Suite Waiting Unit, H [address] [place] [address] Wilbur Rivera MD [address] [place] [address] PERCUTANEOUS CLOSURE LEFT ATRIAL APPENDAGE IMPLANT 07/31/2023 6:00 AM EST [facility] [address] [place] [address] [facility] [address] [place] [address] 08/01/2023 10:00 AM EST Home Visit [facility] at [facility] 132 [facility] [place] [address] Michelle Hurt, RN 132 [facility] [address] 08/13/2023 8:40 AM EST Office Visit Nephrology, [facility] 200 [facility] [place] [address] Rosario Green MD 200 [facility] [place] [address] 08/22/2023 2:20 PM EST Office Visit Family Practice 65 [facility] [place] 293 [facility] [address] Grey Calvo, DO 293 [place] [address] 09/02/2023 2:30 PM EST [facility] 132 [place] [address] Michelle Hurt, RN 132 [facility] [address] 09/19/2023 8:30 AM EST Procedure Only Endoscopy, [facility] [address] Jana Vieira, DO 132 [facility] [place] [address] 09/22/2023 3:00 PM EST Office Visit Cardiology, [facility] 132 [place] [address] Stephen Hewitt, DO 132 [facility] [place] [address] 10/14/2023 2:30 PM EST Office Visit Hematology/Oncolog y [facility] 200 [place] [address] Nereyda Metz CRNP [address] [place] [address] 10/24/2023 2:30 PM EST Office Visit Gynecology/Oncolog y, [place] [address] [place] [address] Vanessa Elena PA-C [address] [place], [place] [address] 06/03/2024 2:15 PM EDT Office Visit Ophthalmology, [facility] 132 [facility] [place] [address] Wilbur Benavides, DO [address] [place] [address] Scheduled Procedures Name Priority Associated Diagnoses Date/Ti me PERCUTANEOUS CLOSURE LEFT ATRIAL APPENDAGE IMPLANT Paroxysmal atrial fibrillation (HCC) 07/31/2023 6:00 AM EST Health Maintenance Due Date Last Done Comments Hepatitis B (1 of 3 - Risk 3-dose series) 2000 CKD PHOS USE SMARTSET 83290 05/01/2023 09/0 02/2022, 04/03/2022, 12/05/2020, Additional history [...] Screening 05/23/2024 05/23/2023 CKD HGB USE SMARTSET 58625 07/03/202407/03, 07/03/2023, 04/11/2023, Additional history exists DXA [...] this encounter Medical Devices Implanted Type Area Plant General Manager Device Identifier Shelf Expiration Date Model / Serial / Lot Cath Thermodilution 6fr - [id number] Implanted:Qty: 1 on 01/24/2023 by Wilbur Rivera MD at [facility] [employer] [id number] 10/15/2024 [id number] / / [id number] Mirtaclip G4 - [id number] Implanted:Qty: 1 on 03/10/2023 at [facility] [employer] 11/19/2023 [id number] / / [id number] documented as of this encounter Advance Directives Documents on File Type Date Recorded Patient Dietary Aide Teacher Expl anation Advance Directives and Living Will 11/29/2022 ADVANCE DIRECTIVE / LIVING WILL Power of Stitch Burnisher 11/29/2022 POWER OF A TTORNEY Advance Directives and Living Will 10/24/2014 ADVANCE DIRECTIVE / LIVING WILL Power of Stitch Burnisher 10/24/2014 POWER OF A TTORNEY Latest Code [...] Agen t (per Health Care Power of Stitch Burnisher document) Care Teams Manager Of Human Resources Relationship Specialty Start Date End Date Grey Calvo DO [address] [place] [address] PCP - General Internal Medicine 03/24/13 documented as of this encounter
--- OUTSIDE RECORDS SUMMARY | 2023-08-14 23:34 | External Medical Summary ---
Author Name Unknown Address Unknown Organization [id number] [place] [address] [place] [address] Laboratory Report Ordering Provider Test Date Status PARVIZ ORR 07/03/2023 12:25:44 Final Observation Date Value Abnormality Reference (Units ) Status Nucleated erythrocytes/100 leukocytes [Ratio] in Blood by Automated count 07/03/2023 12:25:44 Final Performing Location [facility] [place] [address] - [address] [place] [address]
--- OUTSIDE RECORDS SUMMARY | 2023-08-14 23:34 | External Medical Summary ---
Author Name Unknown Address Unknown Organization [id number] [address] [place] [address] Laboratory Report Ordering Provider Test Date Status PARVIZ ORR 07/03/2023 12:25:44 Final Observation Date Value Abnormality Reference (Units ) Status WBC, Total 07/03/2023 12:25:44 8.87 4.00-10.8 0 (K/uL) Final RBC 07/03/2023 12:25:44 3.79 3.85-5.15 (M/uL) Final Hemoglobin 07/03/2023 12:25:44 11.4 Below low normal 12 .0-15.3 (g/dL) Final HCT 07/03/2023 12:25:44 35.6 Below low normal 36. 0-45.2 (%) Final MCV 07/03/2023 12:25:44 93.9 81.5-97.5 (fL) Final MCH 07/03/2023 12:25:44 30.1 27.0-34.0 (pg) Final MCHC 07/03/2023 12:25:44 32.0 32.0-36.0 (g/dL) Final RDW 07/03/2023 12:25:44 17.1 11.5-15.5 (%) Final Platelets 07/03/2023 12:25:44 218 140-400 (K /uL) Final MPV 07/03/2023 12:25:44 9.9 6.6-11.1 ( fL) Final Performing Location [facility] [address] [place] [address]
--- OUTSIDE RECORDS SUMMARY | 2023-08-14 23:35 | External Medical Summary | Summary of Care ---
Author Name Unknown Organization [facility] Address [address] [place] [address] Phone [phone] Care Team Providers Care Matching Machine Operator Name Role Phone Florentin Calvo DO Primary Care Provider [phone] Reason for Visit * Reason Onset Date Comments Appointment 05/29/2023 Advice 05/29/2023 Encounter Details Date Type Department Care Team Description 05/29/2023 Telephone Gastroenterology, [facility] [address] [facility] [place] [address] Jana Vieira DO [address] [place] [address] Appointment; Advice Allergies Active Allergy Reactions Severity Noted Date Comments Azithromycin Other (Please comment) [...] as of this encounter (statuses as of 05/30/2023) Medications Medication Sig Dispensed Refills Start Date End Date Status 5 CUPS and some sugarTouch Verio w/Device KitIndications:Type 2 diabetes mellitus with [...] MOUTH AT BEDTIME 100 Tablet 3 08/05/2022 08/05/2023 Active Torsemide 20 MG Oral Tablet (Demadex) [...] DIRECTED 100 Tablet 3 03/31/2023 Active Ipratropium [place] 0.03 % Nasal Solution (Atrovent)Indicatio ns:Chronic rhinitis [...] bedtime. 90 Tablet 3 05/16/2023 Active Tiotropium [place]-Olodaterol 2.5-2.5 MCG/ACT Inhalation Aerosol Solution (Stiolto Respimat) Inhale 2 Puffs by mouth in the morning. 12 g 3 05/23/2023 Active Hospital, Clinic, or Other Facility Administered Medication Ordered Dose Route Frequency Start Date End Date Status Albuterol Sulfate (Proventil) (2.5 MG/3ML) 0.083% inhalation solution 2.5 mgIndications:Paroxysma l atrial fibrillation (HCC),Hyperkalemia,Asth ma with severity to be determined,Pulmonary hypertension (HCC),Typical atrial flutter (HCC) 2.5 mg NEBULIZER PRN 06/21/2022 06/21/2023 Active Albuterol Sulfate (Proventil) (5 MG/ML) 0.5% *conc* inhalation solution 2.5 mgIndications:Paroxysma l atrial fibrillation (HCC),Hyperkalemia,Asth ma with severity to be determined,Pulmonary hypertension (HCC),Typical atrial flutter (HCC) 2.5 mg NEBULIZER PRN 06/21/2022 06/21/2023 Active Albuterol Sulfate (Proventil) (5 MG/ML) 0.5% *conc* inhalation solution 2.5 mgIndications:SOB (shortness of breath) 2.5 mg NEBULIZER PRN 10/29/2022 10/29/2023 Act akil Albuterol Sulfate (Proventil) (2.5 MG/3ML) 0.083% inhalation solution 2.5 mgIndications:SOB (shortness of breath) 2.5 mg NEBULIZER PRN 10/29/2022 10/29/2023 Act akil documented as of this encounter (statuses as of 05/30/2023) Active Problems Problem Noted Date S/P mitral valve clip implantation 03/06 Atherosclerosis of [place] coronary arter y without angina pectoris 02/13/2023 Last Assessment & Plan: Continue statin, sotalol. ASA History of TIA (transient ischemic attac k) 11/29/2022 Last Assessment & Plan: -Recent admission to [...] next visit, she agreed. Severe tricuspid regurgitation Primary osteoarthritis of right knee Normocytic anemia 10/07/2022 History of endometrial cancer [...] to starting DTP PVD (peripheral vascular disease) 2021 Aneurysm of left carotid artery 12/05/19 Aortic atherosclerosis 12/04/2021 Chronic kidney disease, stage 3b 022 Overview: Per CKD protocol Last Assessment & Plan: GFR today 31. 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 and Advair Current moderate episode of major depressive disorder without prior episode 06/14/2019 Last Assessment & Plan: Stable -continue Zoloft, Xanax p.r.n. 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 Meniere's disease 10/18/2013 Type 2 diabetes mellitus with hemoglobin A1c [...] Aspirin Vertigo 03/24/2013 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 claudication 03/24/2013 Hypothyroidism 03/24/2013 Last Assessment & Plan: Continue Synthroid Displacement of cervical intervertebral disc without myelopathy 03/24/2013 documented as of this encounter (statuses as of 05/30/2023) Resolved Problems Problem Noted Date Resolved Date Viral upper respiratory tract infection 11/30/19 23 12/05/2022 Last Assessment & Plan: -Cough for [...] 02/21 -continue supplements Shortness of breath 07/26/2022 11/18/2022 Last Assessment & Plan: Followed by cardiology--seen 07/02-zio unremarkable, echo with preserved systolic function, no valvular pathology. Referred to pulm, noted to consider sotalol has some beta graciela affects could be contributing. Sees pulm tomorrow. Has rescue inhaler. Allergies to steroids. Was on trelegy in the past. Will defer maintenance inhaler to pulm tomorrow. Longstanding persistent atrial fibrillation 04/202204/05/2022 Hypertension associated with stage 3b chronic kidney disease due to type 2 diabetes mellitus 12/03/2021 04/18/2022 Overview: Per CKD protocol Chronic kidney disease, stage 3a 02/06/2021 12/06/2021 Overview: Per CKD protocol Type 2 diabetes mellitus wit h stage 3a chronic kidney disease and hypertension 01/02/2021 12/06/2021 Overview: Per CKD protocol Endometrial cancer 02/22/2020 10/30/2022 Cancer Staging:Clinical stage from 02/22/2020:FIGO Stage IA(cT1a, cN0(sn), cM0) - Signed by Florentin Perez MD on 02/24/2020 Endometrial intraepithelial neoplasia (EIN) 01/2302/24/2020 Overview: 01/25/2020: Renal osteodystrophy 09/21/2019 09/18/2022 Status post placement of implantable loop record er 04/02/2019 11/18/2022 Chronic atrial fibrillation 12/17/201805/25 Hyperparathyroidism 05/20/2018 09/08/2018 Type 2 DM with CKD stage 3 and hypertension 09/201701/04/2021 Overview: Per CKD protocol Elevated PTHrP level 08/20/2017 08/20/2017 HTN, goal below 140/90 02/05/2016 2 Overview: Per HTN Protocol Atrial flutter 08/31/2014 02/24/2019 Kidney disease, chronic, stage III (GFR 30-59 ml /min) 10/18/2013 01/15/2018 Overview: Per CKD protocol #1 HTN, goal below 140/80 03/24/2013 6 Overview: Per HTN Protocol Asthma, moderate persistent 03/24/201308/26 Depression 03/24/2013 05/31/2020 documented as of this encounter (statuses as of 05/30/2023) Immunizations Name Administration Dates Next Due COVID-19 [...] drink = 0.6 oz pur e alcohol) Food Insecurity Answer Date Recorded Within the past 12 months, y ou worried that your food would run out before you got money to buy more. Never true 05/23/2023 Within the past 12 months, t he food you bought just didn't last and you didn't have money to get more. Never true 05/23/2023 Sex Assigned at Date Recorded Female 12/17/2018 11:06 AM EDT Job Start Date Occupation Industry Not on file Not on file Not on file documented as of this encounter Functional Status Functional Status Response Date of Assess ment Are you deaf or do you have serious difficulty hearing? No-NIKOLAI can hear w/ hearing aid 03/07/2023 Are [...] encounter Miscellaneous Notes * Telephone Encounter - RADHA Rivas - 05/30/2023 10:18 AM EDT Spoke to pt & daughter, procedure rescheduled to 09/19 per TE * Telephone Encounter - JESS Duncan - 05/30/2023 10:08 AM EDT Noted JESS Murdock 05/30/2023 10:09 AM * Telephone Encounter - Nish Chavarria MD - 05/29/2023 3:30 PM EDT If GI procedure is elective, would hold until 1 month after Watchman procedure completed. * Telephone Encounter - RADHA Mantilla - 05/29/2023 2:48 PM EDT Kathy dtr [phone] Pts dtr called she is asking for advice on what to do regarding endoscopy Please see below messages Please advise and call her at the above number Thank you RADHA Mantilla * Telephone Encounter - Jana Vieira DO - 05/29/2023 12:16 PM EDT This question may be best answered by her cardiology provider. I believe the EUS was requested for evaluation for dysphagia and chronically elevated liver tests * Telephone Encounter - Crystal Francis - 05/29/2023 11:54 AM EDT Pt is having a watchmen done in [place] on 07/31/23 pt's daughter is wondering if she should reschedule her EUS at [facility] on 07/11/23 due to her watchmen being pushed out until July. Please Advise. Thank you! documented in this encounter Plan of Treatment Upcoming Encounters Date Type Specialty Care Team Description 06/17/2023 Office Visit Cardiology Stephen Hewitt, [address] [place] [address] 06/26/2023 Office Visit Otolaryngology Cheri Castillo PA-C [address] [place] [address] 07/02/2023 Home Visit [facility] Michelle Hurt RN [address] [place] [address] 07/31/2023 Hospital Encounter Cardiac Draw In Hand Wilbur Rivera MD [address] [place] [address] 07/31/2023 Surgery Cardiac Draw In Hand Wilbur Rivera MD [address] [place] [address] PERCUTANEOUS CLOSURE LEFT ATRIAL APPENDAGE IMPLANT 07/31/2023 Office Visit Cardiology [place], Cardiac Recovery S[place]a [address] [place] [facility] [place] [address] 08/22/2023 Office Visit Family Medicine Florentin Calvo, DO [address] [facility] [place] [address] 09/19/2023 Procedure Only Endoscopy Jana Vieira, DO [address] [place] [address] 09/25/2023 Office Visit Nephrology Rosario Green MD [address] [place] [address] 10/14/2023 Office Visit Hematology Oncology Nereyda Metz CRNP [address] [place] [address] 10/24/2023 Office Visit Gynecology Oncology Chris Peng PA-C [address] [place] [address] 06/03/2024 Office Visit Ophthalmology Wilbur Benavides, [address] [place], [place] [phone] Scheduled Procedures Name Priority Associated Diagnoses Date/Ti me PERCUTANEOUS CLOSURE LEFT ATRIAL APPENDAGE IMPLANT Paroxysmal atrial fibrillation (HCC) 07/31/2023 6:00 AM EST Health Maintenance Due Date Last Done Comments COVID-19 Vaccine ( season) 2023 09/10/2022, 04/09/2022, 06/23/2021, Additional history exists CKD PHOS USE SMARTSET 91148 05/01/2023 09/0 02/2022, 04/03/2022, 12/05/2020, Additional history exists HbA1c 08/23/2023 02/21/2023, 01/0 10/2022, 04/03/2022, Additional history exists TSH 09/24/2023 09/24/2022, 01/0 10/2022, 02/12/2022, Additional history exists Diabetic Foot Exam 10/01/2023 10/01/2022, 0 10/26/2021, 12/05/2020, Additional history exists GFR 11/07/2023 05/09/2023, 08/0 03/2023, 03/14/2023, Additional history exists Albumin/Creatinine Ratio 02/22/20242 023, 05/01/2022, 10/26/2021, Additional history exists CKD HGB USE SMARTSET 81031 04/11/202404/11, 04/11/2023, 04/01/2023, Additional history exists DIABETES-EYE EXAM 05/22/2024 05/22/2023, , 05/22/2023, Additional history exists [...] Completed , 05/15/2022, 05/22/2021, Additional history exists GARDASIL-HPV IMMUNIZATION SERIES Aged Out No longer eligible based on patient's age to complete this topic Hepatitis B Aged Out No longer eligi ble based on patient's age to complete this topic MENINGOCOCCAL (MENACTRA/MENVEO) Aged Out No longer eligible based on patient's age to complete this topic documented as of this encounter Medical Devices Implanted Type Area Solution Designer Device Identifier Shelf Expiration Date Model / Serial / Lot Cath Thermodilution 6fr - [id number] Implanted:Qty: 1 on 01/24/2023 by Wilbur Rivera MD at [facility] [employer] [id number] 10/15/2024 [id number] / / [id number] Mirtaclip G4 - [id number] Implanted:Qty: 1 on 03/10/2023 at [facility] [employer] 11/19/2023 [id number] / / [id number] documented as of this encounter Advance Directives Documents on File Type Date Recorded Patient Dry Room Attendant Expl anation Advance Directives and Living Will 11/29/2022 ADVANCE DIRECTIVE / LIVING WILL Power of Block Making Machine Operator 11/29/2022 POWER OF A TTORNEY Advance Directives and Living Will 10/24/2014 ADVANCE DIRECTIVE / LIVING WILL Power of Block Making Machine Operator 10/24/2014 POWER OF A TTORNEY [...] Agents on File Name Relationship Healthcare Agent [facility] Communication Bright Barakat Adult Child Health Care Frieda t (per Health Care Power of Block Making Machine Operator document) Care Teams Matching Machine Operator Relationship Specialty Start Date End Date Florentin Calvo, DO [address] [place] [address] PCP - General Internal Medicine 03/24/13 documented as of this encounter
--- OUTSIDE RECORDS SUMMARY | 2023-08-14 23:35 | External Medical Summary | Summary of Care ---
Author Name Unknown Organization [facility] Address [address] [place] [address] Phone [phone] Care Team Providers Care Dryerman/Woman Name Role Phone Florentin Calvo DO Primary Care Provider [phone] Reason for Visit * Reason Onset Date Comments Appointment 05/29/2023 Advice 05/29/2023 Encounter Details Date Type Department Care Team Description 05/29/2023 Telephone Gastroenterology, [facility] [address] [facility] [place] [address] Jana Vieira DO [address] [place] [address] Appointment; Advice Allergies Active Allergy Reactions Severity Noted Date Comments Azithromycin Other (Please comment) 12/04/2021 QTC prolongation at [facility] Celecoxib Hives,Rash High 03/24/2013 Other [...] as of this encounter (statuses as of 05/29/2023) Medications Medication Sig Dispensed Refills Start Date End Date Status Simply ZestyTouch Verio w/Device KitIndications:Type 2 diabetes mellitus with hemoglobin A1c goal of less than 7.0% ([facility]) Use up to 1 times a day. [...] (Lipitor)Indication s:PVD (peripheral vascular disease) ([facility]),Type 2 diabetes mellitus with stage 3a chronic kidney disease and hypertension ([facility]) TAKE ONE TABLET BY MOUTH EVERY DAY DIRECTED 100 Tablet 3 03/31/2023 Active Ipratropium [place] 0.03 % Nasal Solution (Atrovent)Indicatio ns:Chronic rhinitis [...] bedtime. 90 Tablet 3 05/16/2023 Active Tiotropium [place]-Olodaterol 2.5-2.5 MCG/ACT Inhalation Aerosol Solution (Stiolto Respimat) [...] as of this encounter (statuses as of 05/29/2023) Active Problems Problem Noted Date S/P mitral valve clip implantation 03/06 Atherosclerosis of [place] coronary arter y without angina pectoris 02/13/2023 Last Assessment & Plan: Continue statin, sotalol. 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 No-CAHTO can hear w/ hearing aid 03/07/2023 Are [...] Miscellaneous Notes * Telephone Encounter - RADHA Mantilla - 05/29/2023 2:48 PM EDT Kathy dtr [phone] Pts dtr called she is asking for [...] Pt is having a watchmen done in [place] on 07/31/23 pt's daughter is wondering if she should reschedule her EUS at [facility] on 07/11/23 due to her watchmen being pushed out until July. Please Advise. Thank you! documented in this encounter Plan of Treatment Upcoming Encounters Date Type Specialty Care Team Description 06/17/2023 Office Visit Cardiology Stephen Hewitt DO [address] [place] [address] 06/26/2023 Office Visit Otolaryngology Cheri Castillo PA-C [address] [place] [address] 07/02/2023 Home Visit [facility] Michelle Hurt RN [address] [place] [address] 07/11/2023 Procedure Only Endoscopy Jana Vieira, DO [address] [facility] [place] [address] 07/31/2023 Hospital Encounter Cardiac Dump Grader Wilbur Rivera MD [address] [place], [place] [phone] 07/31/2023 Surgery Cardiac Dump Grader Wilbur Rivera MD [address] [place], [place] [phone] PERCUTANEOUS CLOSURE LEFT ATRIAL APPENDAGE IMPLANT 07/31/2023 Office Visit Cardiology [place], Cardiac Recovery [facility] [address] [place], [place] [phone] 08/22/2023 Office Visit Family Medicine Florentin Calvo, DO [address] [place] [address] 09/25/2023 Office Visit Nephrology GreenRosario alcantar MD [address] [place], [place] [phone] 10/14/2023 Office Visit Hematology Oncology Nereyda Metz CRNP [address] [place] [address] 10/24/2023 Office Visit Gynecology Oncology Chris Peng PA-C [address] [place], [place] [phone] 06/03/2024 Office Visit Ophthalmology Wilbur Benavides DO [address] [facility] [place], [place] [phone] Scheduled Procedures Name Priority Associated Diagnoses Date/Ti me PERCUTANEOUS CLOSURE LEFT ATRIAL APPENDAGE IMPLANT Paroxysmal atrial fibrillation (HCC) 07/31/2023 6:00 AM EST Health Maintenance Due Date Last Done Comments COVID-19 Vaccine ( season) 2023 09/10/2022, 04/09/2022, 06/23/2021, Additional history exists CKD PHOS USE SMARTSET 40057 05/01/2023 09/0 02/2022, 04/03/2022, 12/05/2020, Additional history exists HbA1c 08/23/2023 02/21/2023, 01/0 10/2022, 04/03/2022, Additional history exists TSH 09/24/2023 09/24/2022, 01/0 10/2022, 02/12/2022, Additional history exists Diabetic Foot Exam 10/01/2023 10/01/2022, 0 10/26/2021, 12/05/2020, Additional history exists GFR 11/07/2023 05/09/2023, 08/0 03/2023, 03/14/2023, Additional history exists Albumin/Creatinine Ratio 02/22/2024 023, 05/01/2022, 10/26/2021, Additional history exists CKD HGB USE SMARTSET 01275 04/11/202404/11, 04/11/2023, 04/01/2023, Additional history exists DIABETES-EYE [...] this encounter Medical Devices Implanted Type Area Job Press Feeder Device Identifier Shelf Expiration Date Model / Serial / Lot Cath Thermodilution 6fr - [id number] Implanted:Qty: 1 on 01/24/2023 by Wilbur Rivera MD at [facility] [place] [employer] [id number] 10/15/2024 [id number] / / [id number] Mirtaclip G4 - [id number] Implanted:Qty: 1 on 03/10/2023 at [facility] [place] [employer] 11/19/2023 [id number] / / [id number] documented as of this encounter Advance Directives Documents on File Type Date Recorded 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 Advance Directives and Living Will 11/29/2022 ADVANCE DIRECTIVE / LIVING WILL Power of Reinforcing Steel Machine Operator 11/29/2022 POWER OF A TTORNEY Advance Directives and Living Will 10/24/2014 ADVANCE DIRECTIVE / LIVING WILL Power of Reinforcing Steel Machine Operator 10/24/2014 POWER OF A TTORNEY [...] Agents on File Name Relationship Healthcare Agent [facility] p Communication Bright Barakat Adult Child Health Care Frieda mcdowell (per Health Care Power of Reinforcing Steel Machine Operator document) Care Teams Dryerman/Woman Relationship Specialty Start Date End Date Florentin Calvo, DO [address] [place] [address] PCP - General Internal Medicine 03/24/13 documented as of this encounter
--- OUTSIDE RECORDS SUMMARY | 2023-08-14 23:35 | External Medical Summary | Summary of Care ---
Author Name Unknown Organization [facility] Address [address] [place] [address] Phone [phone] Care Team Providers Care Candle Molder Name Role Phone Florentin Calvo DO Primary Care Provider [phone] Reason for Visit * Reason Onset Date Comments Appointment 05/29/2023 Advice 05/29/2023 Encounter Details Date Type Department Care Team Description 05/29/2023 Telephone Gastroenterology, [facility] [address] [facility] [place] [address] Jana Vieira DO [address] [place] [address] Appointment; Advice Allergies Active Allergy Reactions Severity Noted Date Comments Azithromycin Other (Please comment) 12/04/2021 QTC prolongation at [facility] Celecoxib Hives,Rash High 03/24/2013 Other reaction(s): Rash/Hives/Itching. [...] Dispensed Refills Start Date End Date Status Bantam LiveTouch Verio w/Device KitIndications:Type 2 diabetes mellitus with [...] DIRECTED 100 Tablet 3 03/31/2023 Active Ipratropium [place] 0.03 % Nasal Solution (Atrovent)Indicatio ns:Chronic rhinitis [...] bedtime. 90 Tablet 3 05/16/2023 Active Tiotropium [place]-Olodaterol 2.5-2.5 MCG/ACT Inhalation Aerosol Solution (Stiolto Respimat) [...] mitral valve clip implantation 03/06 Atherosclerosis of [place] coronary arter y without angina pectoris 02/13/2023 Last Assessment & Plan: Continue statin, sotalol. 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 No-[place] can hear w/ hearing aid 03/07/2023 Are [...] - 05/29/2023 2:48 PM EDT Kathy dtr [phone] Pts dtr called she is asking for [...] Pt is having a watchmen done in [place] on 07/31/23 pt's daughter is wondering if she should reschedule her EUS at [facility] on 07/11/23 due to her watchmen being pushed out until July. Please Advise. Thank you! documented in this encounter Plan of Treatment Upcoming Encounters Date Type Specialty Care Team Description 06/17/2023 Office Visit Cardiology Stephen [place] DO [address] [place] [address] 06/26/2023 Office Visit Otolaryngology Cheri Castillo PA-C [address] [place] [address] 07/02/2023 Home Visit [facility] Michelle Hurt RN [address] [place] [address] 07/11/2023 Procedure Only Endoscopy Jana Vieira, DO [address] [facility] [place] [address] 07/31/2023 Hospital Encounter Cardiac Commodity Specialist Wilbur Rivera MD [address] [place], [place] [phone] 07/31/2023 Surgery Cardiac Commodity Specialist Wilbur Rivera MD [address], [place] [phone] PERCUTANEOUS CLOSURE LEFT ATRIAL APPENDAGE IMPLANT 07/31/2023 Office Visit Cardiology [place], Cardiac Recovery [place] [address] [place], [place] [phone] 08/22/2023 Office Visit Family Medicine Florentin Calvo, DO [address] [place] [address] 09/25/2023 Office Visit Nephrology GreenRosario alcantar MD [address] [place], [place] [phone] 10/14/2023 Office Visit Hematology Oncology Nereyda Metz CRNP [address] [place] [address] 10/24/2023 Office Visit Gynecology Oncology Chris Peng PA-C [address] [place], [place] [phone] 06/03/2024 Office Visit Ophthalmology Wilbur Benavides DO [address] [facility] [place], [place] [phone] Scheduled Procedures Name Priority Associated Diagnoses Date/Ti me PERCUTANEOUS CLOSURE LEFT ATRIAL APPENDAGE IMPLANT Paroxysmal atrial fibrillation (HCC) 07/31/2023 6:00 AM EST Health Maintenance Due Date Last Done Comments COVID-19 Vaccine ( season) 2023 09/10/2022, 04/09/2022, 06/23/2021, Additional history exists CKD PHOS USE SMARTSET 16086 05/01/2023 09/0 02/2022, 04/03/2022, 12/05/2020, Additional history exists HbA1c 08/23/2023 02/21/2023, 01/0 10/2022, 04/03/2022, Additional history exists TSH 09/24/2023 09/24/2022, 01/0 10/2022, 02/12/2022, Additional history exists Diabetic Foot Exam 10/01/2023 10/01/2022, 0 10/26/2021, 12/05/2020, Additional history exists GFR 11/07/2023 05/09/2023, 08/0 03/2023, 03/14/2023, Additional history exists Albumin/Creatinine Ratio 02/22/2024 023, 05/01/2022, 10/26/2021, Additional history exists CKD HGB USE SMARTSET 35188 04/11/202404/11, 04/11/2023, 04/01/2023, Additional history exists DIABETES-EYE [...] this encounter Medical Devices Implanted Type Area Keno Dealer Device Identifier Shelf Expiration Date Model / Serial / Lot Cath Thermodilution 6fr - [id number] Implanted:Qty: 1 on 01/24/2023 by Wilbur Rivera MD at [facility] [employer] [id number] 10/15/2024 [id number] / / [id number] Mirtaclip G4 - [id number] Implanted:Qty: 1 on 03/10/2023 at [facility] [employer] 11/19/2023 [id number] / / [id number] documented as of this encounter Advance Directives Documents on File Type Date 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 Advance Directives and Living Will 11/29/2022 ADVANCE DIRECTIVE / LIVING WILL Power of Family Assistant 11/29/2022 POWER OF A TTORNEY Advance Directives and Living Will 10/24/2014 ADVANCE DIRECTIVE / LIVING WILL Power of Family Assistant 10/24/2014 POWER OF A TTORNEY Latest [...] Agents on File Name Relationship Healthcare Agent [facility] p Communication Bright Barakat Adult Child Health Care Frieda mcdowell (per Health Care Power of Family Assistant document) Care Teams Candle Molder Relationship Specialty Start Date End Date Florentin Calvo, DO [address] [place] [address] PCP - General Internal Medicine 03/24/13 documented as of this encounter
--- OUTSIDE RECORDS SUMMARY | 2023-08-14 23:35 | External Medical Summary | Summary of Care ---
Author Name Unknown Organization [facility] Address [address] [place] [address] Phone [phone] Care Team Providers Care Telegraph Service Clerk Name Role Phone Florentni Calvo DO Primary Care Provider [phone] Reason for Visit * Reason Onset Date Comments Appointment 05/29/2023 Advice 05/29/2023 Encounter Details Date Type Department Care Team Description 05/29/2023 Telephone Gastroenterology, [facility] [address] [facility] [place] [address] Jana Vieira DO [address] [place] [address] Appointment; Advice Allergies Active Allergy Reactions Severity Noted Date Comments Azithromycin Other (Please comment) 12/04/2021 QTC prolongation at [facility] Celecoxib Hives,Rash High 03/24/2013 Other reaction(s): Rash/Hives/Itching. [...] Dispensed Refills Start Date End Date Status KanboxTouch Verio w/Device KitIndications:Type 2 diabetes mellitus with hemoglobin A1c goal of less than 7.0% ([facility]) Use up to 1 times a [...] (Lipitor)Indication s:PVD (peripheral vascular disease) ([facility]),Type 2 diabetes mellitus with stage 3a chronic kidney disease and hypertension ([facility]) TAKE ONE TABLET BY MOUTH EVERY DAY DIRECTED 100 Tablet 3 03/31/2023 Active Ipratropium [place] 0.03 % Nasal Solution (Atrovent)Indicatio ns:Chronic rhinitis [...] bedtime. 90 Tablet 3 05/16/2023 Active Tiotropium [place]-Olodaterol 2.5-2.5 MCG/ACT Inhalation Aerosol Solution (Stiolto Respimat) [...] mitral valve clip implantation 03/06 Atherosclerosis of [place] coronary arter y without angina pectoris 02/13/2023 Last Assessment & Plan: Continue statin, sotalol. 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 No-[place] can hear w/ hearing aid 03/07/2023 Are [...] encounter Miscellaneous Notes * Telephone Encounter - Nish Chavarria MD - 05/29/2023 3:30 PM EDT If GI procedure is elective, would hold until 1 month after Watchman procedure completed. * Telephone Encounter - RADHA Mantilla - 05/29/2023 2:48 PM EDT Kathy dtr [phone] Pts dtr called she is asking for [...] Pt is having a watchmen done in [place] on 07/31/23 pt's daughter is wondering if she should reschedule her EUS at [facility] on 07/11/23 due to her watchmen being pushed out until July. Please Advise. Thank you! documented in this encounter Plan of Treatment Upcoming Encounters Date Type Specialty Care Team Description 06/17/2023 Office Visit Cardiology Stephen [place] DO [address] [place] [address] 06/26/2023 Office Visit Otolaryngology Cheri Castillo PA-C [address] [place] [address] 07/02/2023 Home Visit [facility] Michelle Hurt, RN [address] [place] [address] 07/11/2023 Procedure Only Endoscopy Jana Vieira, DO [address] [place] [address] 07/31/2023 Hospital Encounter Cardiac Guide Cruise Wilbur Rivera MD [address] [place], [place] [phone] 07/31/2023 Surgery Cardiac Guide Cruise Wilbur Rivera MD [address] [place] [address] PERCUTANEOUS CLOSURE LEFT ATRIAL APPENDAGE IMPLANT 07/31/2023 Office Visit Cardiology [place], Cardiac Recovery [facility] [address] [place] [address] 08/22/2023 Office Visit Family Medicine Florentin Calvo, DO [address] [place] [address] 09/25/2023 Office Visit Nephrology Rosario Green MD [address] [place] [address] 10/14/2023 Office Visit Hematology Oncology Nereyda Metz CRNP [address] [facility] [place] [address] 10/24/2023 Office Visit Gynecology Oncology Chris Peng PA-C [address] [place] [address] 06/03/2024 Office Visit Ophthalmology Wilbur Benavides, DO [address] [facility] [address] [place] [phone] Scheduled Procedures Name Priority Associated Diagnoses Date/Ti me PERCUTANEOUS CLOSURE LEFT ATRIAL APPENDAGE IMPLANT Paroxysmal atrial fibrillation (HCC) 07/31/2023 6:00 AM EST Health Maintenance Due Date Last Done Comments COVID-19 Vaccine ( season) 2023 09/10/2022, 04/09/2022, 06/23/2021, Additional history exists CKD PHOS USE SMARTSET 57808 05/01/2023 09/0 02/2022, 04/03/2022, 12/05/2020, Additional history exists HbA1c 08/23/2023 02/21/2023, 01/0 10/2022, 04/03/2022, Additional history exists TSH 09/24/2023 09/24/2022, 01/0 10/2022, 02/12/2022, Additional history exists Diabetic Foot Exam 10/01/2023 10/01/2022, 0 10/26/2021, 12/05/2020, Additional history exists GFR 11/07/2023 05/09/2023, 08/0 03/2023, 03/14/2023, Additional history exists Albumin/Creatinine Ratio 02/22/2024 023, 05/01/2022, 10/26/2021, Additional history exists CKD HGB USE SMARTSET 77712 04/11/202404/11, 04/11/2023, 04/01/2023, Additional history exists DIABETES-EYE [...] this encounter Medical Devices Implanted Type Area Digital Marketing Analyst Device Identifier Shelf Expiration Date Model / Serial / Lot Cath Thermodilution 6fr - [id number] Implanted:Qty: 1 on 01/24/2023 by Wilbur Rivera MD at [facility] [employer] [id number] 10/15/2024 [id number] / / [id number] Mirtaclip G4 - [id number] Implanted:Qty: 1 on 03/10/2023 at [facility] [employer] 11/19/2023 [id number] / / [id number] documented as of this encounter Advance Directives Documents on File Type Date 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
--- OUTSIDE RECORDS SUMMARY | 2023-08-14 23:35 | External Medical Summary | Summary of Care ---
Author Name Unknown Organization [facility] Address [address] [place] [address] Phone [phone] Care Team Providers Care Server Support Technician Name Role Phone Florentin Calvo DO Primary Care Provider [phone] Reason for Referral * Precert (Within 10 days (routine)) - Authorized Specialty Diagnoses / Procedures Referred By Contac t Referred To Contact Sleep Disorders Diagnoses Obstructive sleep apnea CSA (central sleep apnea) Procedures SLEEP STUDY, W/ CPAP (TREATMENT SETTINGS) Karen Berg CRNP [address] [facility] [address] Referral ID Status Reason Start Date Expiration Date V isits Requested Visits Authorized [id number] Authorized 12/18/2022 [id number] Encounter Details Date Type Department Care Team Description 12/17[facility]2022 [facility] [address] [facility] [address] Karen Berg CRNP [address] [place] [address] Allergies Active Allergy Reactions Severity Noted Date [...] as of this encounter (statuses as of 06/01/2023) Medications Medication Sig Dispensed Refills Start Date End Date Status OneTouch Verio w/Device KitIndications:Ty pe 2 diabetes mellitus with hemoglobin A1c goal of less than 7.0% ([facility]) Use up to 1 times a day. E11.9 1 Kit 0 1 Active Aspirin 81 MG Oral Tablet Delayed Release Take 1 Tablet by mouth daily. 0 Active Acetaminophen 325 MG Oral Tablet (Tylenol) Take 2 Tablets by mouth every 6 hours as needed. 100 Tablet 0 2 Active Vitamin D3 50 MCG (1999 UT) Oral CapsuleIndication s:Vitamin D deficiency Take 2 Capsules by mouth in the morning. 60 Capsule 5 2 Active Levalbuterol Tartrate 45 MCG/ACT Inhalation Aerosol (Xopenex HFA)Indications:A sthma with severity to be determined Inhale by mouth 1 Puff every 4 hours as needed for Wheezing. 15 g 12 2 Active ferrous sulfate (FEOSOL) 325 (65 FE) MG Tablet Take 1 Tab by mouth 2 times a day. 180 Tab 1 0 03/18/20 23 Discontinued Sotalol HCl 80 MG Oral Tablet (Betapace)Indicat ions:Chronic atrial fibrillation (HCC) Take by mouth 0.5 Tablets in the morning AND 0.5 Tablets before bedtime. 0.5 tablet twice daily. 90 Tablet 3 2 04/03/20 22 Discontinued(Leg acy prescription brought in as discontinued) OneTouch Delica Plus [id number] USE TWO TIMES A DAY DIRECTED 200 Each 3 2 04/30/20 22 Discontinued(Leg acy prescription brought in as discontinued) Ipratropium [place] 0.03 % Nasal Solution Administer into each nostril 2 Sprays 2 times a day . 90 mL 1 2 12/31/19 23 Discontinued OneTouch Verio In Vitro Strip (Glucose Blood) Use up to 2 times a day E11.9 200 Strip 3 2 12/21/19 23 Discontinued(Ref ill) Folic Acid 1 MG Oral TabletIndications :Chronic atrial fibrillation (HCC) Take by mouth 1 Tablet in the morning. 100 Tablet 1 2 02/03/20 23 Discontinued(Ref ill) Vitamin B12 500 MCG Oral Tablet Take 500 mcg by mouth in the morning. 0 02/14/20 23 Discontinued(Med ication List Clean Up) Montelukast Sodium 10 MG Oral Tablet (Singulair)Indica tions:Moderate persistent asthma without complication Take 1 Tablet (10 mg) by mouth every night at bedtime. 100 Tablet 3 2 08/05/20 22 Discontinued(Leg acy prescription brought in as discontinued) Atorvastatin Calcium 20 MG Oral Tablet (Lipitor)Indicati ons:PVD (peripheral vascular disease) ([facility]),Type 2 diabetes mellitus with stage 3a chronic kidney disease and hypertension (HCC) Take 1 Tablet by mouth in the morning. 100 Tablet 1 2 08/20/20 22 Discontinued(Leg acy prescription brought in as discontinued) ALPRAZolam 0.5 MG Oral Tablet (xaNAX)Indication s:Persistent insomnia,Anxiety Take 1 Tablet by mouth 3 times a day as needed for Sleep or Anxiety. 90 Tablet 0 3 01/18/20 23 Discontinued(Ref ill) Allopurinol 100 MG Oral Tablet (Zyloprim)Indicat ions:Gout, arthropathy Take 2 Tablets by mouth at bedtime. 60 Tablet 11 3 05/01/20 23 Discontinued(Ref ill) Azelastine HCl 0.1 % Nasal Solution (Astelin)Indicati ons:Dysfunction of left eustachian tube Administer 1 Lamar into nostril in the morning and 1 Lamar before bedtime. 30 mL 0 3 01/08/20 23 Discontinued([facility] List Clean Up) Levothyroxine Sodium 125 MCG Oral Tablet (Levoxyl) Take 1 Tablet by mouth in the morning. 0 3 02/01/20 23 Discontinued(Ref ill) Polyethylene Glycol 3350 17 GM Oral Packet Take 1 Packet by mouth daily as needed for Constipation. 0 03/07/20 23 Discontinued Sertraline HCl 50 MG Oral Tablet (Zoloft)Indicatio ns:Current moderate episode of major depressive disorder without prior episode (HCC) Take 1 Tablet by mouth at bedtime. 100 Tablet 3 3 12/31/19 23 Discontinued Sertraline HCl 100 MG Oral Tablet (Zoloft)Indicatio ns:Current moderate episode of major depressive disorder without prior episode (HCC) Take 1 Tablet by mouth in the morning. 100 Tablet 3 3 02/14/20 23 Discontinued Empagliflozin 10 MG Oral Tablet (Jardiance) Take 1 Tablet by mouth in the morning. 30 Tablet 1 3 02/01/20 23 Discontinued Torsemide 10 MG Oral Tablet (Demadex) Take 1 Tablet by mouth in the morning. 100 Tablet 3 3 12/19/19 23 Discontinued Pantoprazole Sodium 40 MG Oral Tablet Delayed Release (Protonix) Take 1 Tablet by mouth in the morning and 1 Tablet in the evening. 0 01/03/20 23 Discontinued(Ref ill) BiPAP every night at bedtime. 0 02/19/20 23 Discontinued Fluticasone-Salme terol 250-50 MCG/ACT Inhalation Aerosol Powder Breath Activated (Advair Diskus) Inhale 1 Puff by mouth in the morning and 1 Puff before bedtime. 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 * Telephone Encounter - JESS Lanier - 12/18/2022 10:55 AM EDT Please submit orders for sleep testing to [facility] Russell. * Telephone Encounter - JESS Lanier - 12/17/2022 1:20 PM EDT Home BIPAP 13/5 b/u 13: rAHI 23.9 (all hypopneas) Recommend: Change to 15/7 and reassess Dedicated BIPAP S/T study documented in this encounter Plan of Treatment Upcoming Encounters Date Type Specialty Care Team Description 06/17/2023 Office Visit Cardiology Stephen [place], DO [address] [place] [address] 06/26/2023 Office Visit Otolaryngology Cheri Casitllo PA-C [address] [place] [address] 07/02/2023 Home Visit [facility] Michelle Hurt RN [address] [place] [address] 07/31/2023 Hospital Encounter Cardiac Photonics Technician Wilbur Rivera MD [address] [place] [address] 07/31/2023 Surgery Cardiac Photonics Technician Wilbur Rivera MD [address] [place] [address] PERCUTANEOUS CLOSURE LEFT ATRIAL APPENDAGE IMPLANT 07/31/2023 Office Visit Cardiology Michelle Cardiac Recovery [facility] [address] [place] [address] 08/22/2023 Office Visit Family Medicine Florentin Calvo, DO [address] [facility] [place] [address] 09/19/2023 Procedure Only Endoscopy Jana Vieira, DO [address] [place] [address] 09/25/2023 Office Visit Nephrology Rosario Green MD 200 [place] [address] 10/14/2023 Office Visit Hematology Oncology [facility] Metz [facility] [place] [address] 10/24/2023 Office Visit Gynecology Oncology Chris Peng PA-C [address] [place] [address] 06/03/2024 Office Visit Ophthalmology Wilbur Benavides, DO [address] [place] [phone] Scheduled Orders Name Type Priority Associated Diagnoses Orde r Schedule SLEEP STUDY, W/ CPAP (TREATMENT SETTINGS) Procedures Routine Obstructive sleep apnea CSA (central sleep apnea) Ordered: 12/18/2022 Scheduled Procedures Name Priority Associated Diagnoses Date/Ti me PERCUTANEOUS CLOSURE LEFT ATRIAL APPENDAGE IMPLANT Paroxysmal atrial fibrillation (HCC) 07/31/2023 6:00 AM EST Health Maintenance Due Date Last Done Comments COVID-19 Vaccine ( season) 2023 09/10/2022, 04/09/2022, 06/23/2021, Additional history exists CKD PHOS USE SMARTSET 22598 05/01/2023 09/0 02/2022, 04/03/2022, 12/05/2020, Additional history exists HbA1c 08/23/2023 02/21/2023, 01/0 10/2022, 04/03/2022, Additional history exists TSH 09/24/2023 09/24/2022, 01/0 10/2022, 02/12/2022, Additional history exists Diabetic Foot Exam 10/01/2023 10/01/2022, 0 10/26/2021, 12/05/2020, Additional history exists GFR 11/07/2023 05/09/2023, 08/0 03/2023, 03/14/2023, Additional history exists Albumin/Creatinine Ratio 02/22/202402/21/2 023, 05/01/2022, 10/26/2021, Additional history exists CKD HGB USE SMARTSET 05250 04/11/202404/11, 04/11/2023, 04/01/2023, Additional history exists DIABETES-EYE [...] this encounter Medical Devices Implanted Type Area Milk Tanker Driver Device Identifier Shelf Expiration Date Model / Serial / Lot Cath Thermodilution 6fr - [id number] Implanted:Qty: 1 on 01/24/2023 by Wilbur Rivera MD at [facility] [place] [place] [employer] [id number] 10/15/2024 [id number] / / [id number] Mirtaclip G4 - [id number] Implanted:Qty: 1 on 03/10/2023 at [facility] [place] [place] [employer] 11/19/2023 [id number] / / [id number] documented as of this encounter Visit Diagnoses Diagnosis Obstructive sleep apnea- Primary Obstructive sleep apnea (adult) (pediatric) CSA (central sleep apnea) Unspecified sleep apnea Paroxysmal atrial fibrillation (HCC)- Primary Atrial fibrillation Paroxysmal atrial fibrillation (HCC) Atrial fibrillation documented in this encounter Additional Health Concerns Infection Onset Date Last Indicated Resolved Time Gastrointestinal Rule-Out 04/17/2023 04/17/2023 1:08 PM EDT C. 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
--- OUTSIDE RECORDS SUMMARY | 2023-08-14 23:35 | External Medical Summary | Summary of Care ---
Author Name Unknown Organization [facility] Address [address] [place] [address] Phone [phone] Care Team Providers Care Aperture Mask Etcher Name Role Phone Florentin Calvo DO Primary Care Provider [phone] Reason for Visit * Reason Comments Follow Up Encounter Details Date Type Department Care Team (Late st Contact Info) Description 06/17/2023 1:30 PM EDT Office Visit Cardiology, [facility] [address] [facility] [place] [address] Stephen Hewitt DO [facility] [place] [address] Cardiac pacemaker in situ*; SSS (sick sinus syndrome) ([facility]); Nonrheumatic mitral valve regurgitation; Paroxysmal atrial fibrillation ([facility]); Status post implantation of mitral valve leaflet clip Allergies Active Allergy Reactions Criticality Noted Date Comments Azithromycin Other (Please comment) 12/04/[address] [facility] Celecoxib Hives,Rash High 03/24/2013 Other reaction(s): [...] as of this encounter (statuses as of 06/17/2023) Medications Medication Sig Dispensed Refills Start Date End Date Status Rivermine SoftwareTouch Verio w/Device KitIndications:Type 2 diabetes mellitus with hemoglobin A1c goal of less than 7.0% ([facility]) Use up to 1 times a [...] Oral Tablet (Lipitor)Indication s:PVD (peripheral vascular disease) ([facility]),Type 2 diabetes mellitus with stage 3a chronic kidney disease and hypertension ([facility]) TAKE ONE TABLET BY MOUTH EVERY DAY DIRECTED 100 Tablet 3 03/31/2023 Active Ipratropium Harrison 0.03 % Nasal Solution (Atrovent)Indicatio ns:Chronic rhinitis [...] bedtime. 90 Tablet 3 05/16/2023 Active Tiotropium Harrison-Olodaterol 2.5-2.5 MCG/ACT Inhalation Aerosol Solution (Stiolto Respimat) [...] as of this encounter (statuses as of 06/17/2023) Active Problems Problem Noted Date Diagnosed Date S/P mitral valve clip implantation 03/06/2023 Atherosclerosis of sioux 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 02/13/2023 Last Assessment & Plan: Continue statin, sotalol. ASA History of TIA (transient ischemic attack) 11/29 Last Assessment & Plan: -Recent admission to 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 Last Assessment & Plan: Now just [...] as of this encounter (statuses as of 06/17/2023) Resolved Problems Problem Noted Date Diagnosed Date [...] as of this encounter (statuses as of 06/17/2023) Immunizations Name Administration Dates Next Due COVID-19 [...] Sign Reading Time Taken Comments Blood Pressure 130/66 06/17/2023 1:22 PM EDT Pulse 84 06/17/2023 1:22 PM EDT Temperature - - Respiratory Rate 14 06/17/2023 1:22 PM EDT Oxygen Saturation - - Inhaled Oxygen Concentration - - Weight 72.6 kg (160 lb) 06/17/2023 1:22 PM EDT Height - - Body Mass Index 26.63 05/23/2023 3:05 PM EDT documented in this encounter Functional Status Functional Status Response Date of Assess ment Are you deaf or do you have serious difficulty hearing? No-NINILCHIK can hear w/ hearing aid 03/07/2023 Are [...] as of this encounter Progress Notes * Stephen Hewitt, DO - 06/17/2023 1:49 PM EDT Cardiology Outpatient Follow-up Inga Barakat is a 82 year old female who is seen for follow-up of valvular heart disease. HPI: This is an 82-year-old female who this past summer received a mitral clip due to severe CHF and secondary mitral regurgitation. She has done miraculously well following that procedure. He returned today and has no ongoing cardiac complaints. She is scheduled to have a Watchman completed later this year due to an history of atrial fibrillation and chronic anemia of unclear etiology. 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 Obstructive sleep apnea of adult 09/09/2014 [employer] Pleural effusion Pulmonary arterial hypertension ([facility]) Pure hypercholesterolemia 07/02/2021 PVD (peripheral vascular disease) ([facility]) 05/15/2022 Retinopathy Secondary hyperparathyroidism, renal ([facility]) 12/17/2018 Severe mitral valve regurgitation 10/30/2022 Severe tricuspid regurgitation 11/18/2022 Spinal stenosis 07/2002 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 claudication 03/24/2013 Vertigo 03/24/2013 Patient Active Problem List Diagnosis Code Type 2 diabetes mellitus with hemoglobin A1c goal of less than 7.0% ([facility]) E11.9 Vertigo R42 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 claudication M48.061 Hypothyroidism E03.9 Displacement of cervical intervertebral disc without myelopathy M50.20 Meniere's disease H81.09 Paroxysmal atrial fibrillation ([facility]) I48.0 Obstructive sleep apnea of adult G47.33 Tremor R25.1 Iron deficiency anemia D50.9 Angiodysplasia of colon with hemorrhage K55.21 Acquired renal cyst N28.1 Controlled substance agreement signed Z79.899 Type 2 diabetes mellitus with polyneuropathy ([facility]) E11.42 Secondary hyperparathyroidism, renal ([facility]) N25.81 Pulmonary hypertension ([facility]) I27.20 Current moderate episode of major depressive disorder without prior episode ([facility]) F32.1 Moderate persistent asthma without complication J45.40 Gastro-esophageal reflux disease without esophagitis K21.9 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 ([facility]) E11.319 Pure hypercholesterolemia E78.00 Aneurysm of left carotid artery ([facility]) I72.0 Aortic atherosclerosis ([facility]) I70.0 Chronic kidney disease, stage 3b ([facility]) N18.32 PVD (peripheral vascular disease) ([facility]) I73.9 Chronic diastolic CHF (congestive heart failure) ([facility]) I50.32 Type 2 diabetes mellitus with stage 3b chronic kidney disease, without long-term current use of insulin ([facility]) E11.22, N18.32 Cardiac pacemaker in situ Z95.0 History of endometrial cancer Z85.42 Normocytic anemia D64.9 Primary osteoarthritis of right knee M17.11 Severe tricuspid regurgitation I07.1 History of TIA (transient ischemic attack) Z86.73 Atherosclerosis of sioux coronary artery without angina pectoris I25.10 S/P mitral valve clip implantation Z98.890, Z95.818 Past Surgical History: Procedure Laterality Date COLONOSCOPY, DIAGNOSTIC (RECTUM) 10/12/2014 inflammatory tissue on bx, diverticulosis/[facility] COLONOSCOPY, DIAGNOSTIC (RECTUM) 01/05/2016 diverticulosis, multiple non-bleeding colonic angioectasias COLONOSCOPY, DIAGNOSTIC (RECTUM) 04/15/2016 angiodysplastic lesion, diverticulosis/COLONOSCOPY FLEXIBLE PROXIMAL DIAGNOSTIC performed by Izzy Stone MD at [facility] COLONOSCOPY, DIAGNOSTIC (RECTUM) 11/10/2020 Hemorrhoids, multi polyps, diverticulosis in sigmoid colon/ biopsy show adenomatous polyp/ COLONOSCOPY FLEXIBLE PROXIMAL DIAGNOSTIC performed by Maine Stone MD at [facility] COLONOSCOPY, DIAGNOSTIC (RECTUM) 03/11/2022 poor prep / [facility] CORONARY ANGIOGRAPHY W/RIGHT+LEFT CATH Right 01/24/2023 CORONARY ANGIOGRAPHY W/RIGHT+LEFT CATH performed by Wilbur Rivera MD at [facility] CYSTOSCOPY 06/2012 EGD, FLEXIBLE, DIAGNOSTIC 10/12/2014 normal bx, HH/[facility] EGD, FLEXIBLE, DIAGNOSTIC 01/05/2016 ESOPHAGOGASTRODUODENOSCOPY (EGD), FLEXIBLE, TRANSORAL, DIAGNOSTIC performed by Maine Stone MD at [facility] EGD, FLEXIBLE, DIAGNOSTIC 03/11/2022 Multiple small non-bleeding fundic gland polyps / [facility] EGD, FLEXIBLE, DIAGNOSTIC 12/09/2022 mild-mod inflammation / [facility] LAPAROSCOPY TOTAL HYSTX, UTERUS 250GM OR LESS TUBE/OVARY N/A 02/22/2020 ROBOTIC LAPAROSCOPIC HYSTERECTOMY REMOVAL TUBES AND OVARIES FOR UTERUS 250GM OR LESS performed by Florentin Perez MD at OR [facility] LAPAROSCOPY; CHOLECYSTECTOMY N/A 06/06/2020 LIGATE/CUT OVIDUCT(S) MAMMOGRAM BREAST NEEDLE BIOPSY CORE LEFT Left 09/19/2015 benign NECK SPINE FUSION (CERV, BELOW C2) 1993 1999,2011 PATIENT EDU, LUMBAR LAMINECTOMY 2001 1996 too IN TONSILLECTOMY PRIMARY/SECONDARY LESS THAN AGE 12 Bilateral REPAIR RUPTURED ROTATOR CUFF, ACUTE Left 08/08/2015 SINUS SURGERY PROCEDURE NEC 1994 TRANSCATH REPAIR MITRAL VALVE, INITIAL Bilateral 03/06/2023 TRANSCATHETER MITRAL VALVE REPAIR performed by Wilbur Rivera MD at [facility] Family History Problem Relation Age of Onset Neurological Disorder Mother parkinson Eye Problems Mother glaucoma Diabetes Father 30 1967 Cancer Brother brain, lung Eye Problems None denies fm: Blindness, AMD, RD Stomach cancer Grandmother (Maternal) Social History Tobacco Use Smoking status: Former Packs/day: 1.25 Years: 18.00 Additional pack years: 0.00 Total pack years: 22.50 Types: Cigarettes Quit date: 12/29/1978 Years since quittin.4 Passive exposure: Past Smokeless tobacco: Never Vaping Use Vaping Use: Never used Substance Use Topics Alcohol use: No Drug use: No Review of patient's allergies indicates: Allergen Reactions [...] Azithromycin Other (Please comment) QTC prolongation at [facility] Nickel Swelling Other reaction(s): Unknown Current Outpatient Medications Medication Sig Dispense Refill Looop Online w/Device Kit Use up to 1 times a day. E11.9 1 Kit 0 Aspirin 81 MG Oral Tablet Delayed Release Take 1 Tablet by mouth daily. Acetaminophen 325 MG Oral Tablet (Tylenol) Take 2 Tablets by mouth every 6 hours as needed. 100 Tablet 0 Vitamin D3 50 MCG (1999 UT) Oral Capsule Take 2 Capsules by mouth in the morning. 60 Capsule 5 Levalbuterol Tartrate 45 MCG/ACT Inhalation Aerosol (Xopenex HFA) Inhale by mouth 1 Puff every 4 hours as needed for Wheezing. 15 g 12 Rivermine SoftwareTouch [employer] In Vitro Strip (Glucose Blood) Test blood sugars up to 2 times a day E11.9 200 Strip3 Vitamin B-12 100 MCG Oral Tablet (vitamin B-12) Take 1 Tablet by mouth in the morning. 30 Tablet 3 Folic Acid 1 MG Oral Tablet TAKE ONE TABLET BY MOUTH EVERY MORNING 100 Tablet 1 Levothyroxine Sodium 125 MCG Oral Tablet (Levoxyl) TAKE ONE TABLET BY MOUTH FIRST THING IN THE MORNING 100 Tablet 1 ALPRAZolam 0.5 MG Oral Tablet (xaNAX) TAKE ONE TABLET BY MOUTH AT BEDTIME NEEDED FOR SLEEP OR ANXIETY USES HALF OF A TABLET NEEDED FOR ANXIETY AND SLEEP 90 Tablet 0 Montelukast Sodium 10 MG Oral Tablet (Singulair) [...] MOUTH EVERY DAY DIRECTED 100Tablet 3 Ipratropium Harrison 0.03 % Nasal Solution (Atrovent) Administer 2 [...] mouth at bedtime. 90 Tablet 3 Tiotropium Harrison-Olodaterol 2.5-2.5 MCG/ACT Inhalation Aerosol Solution (Stiolto Respimat) Inhale2 Puffs by mouth in the morning. 12 g 3 Current Facility-Administered Medications Medication Dose Route Frequency Provider Last Rate Last Admin Albuterol Sulfate (Proventil) (2.5 MG/3ML) 0.083% inhalation solution 2.5 mg 2.5 mg Nebulizer PRN Abigail Goncalves PA-C Albuterol Sulfate (Proventil) (5 MG/ML) 0.5% *conc* inhalation solution 2.5 mg 2.5 mg Nebulizer PRNRebpoonam Goncalves PA-C Albuterol Sulfate (Proventil) (5 MG/ML) 0.5% *conc* inhalation solution 2.5 mg 2.5 mg Nebulizer PRPRATIMAhipolito JESS Meneses Albuterol Sulfate (Proventil) (2.5 MG/3ML) 0.083% inhalation solution 2.5 mg 2.5 mg Nebulizer PRN Veronique JESS Meneses 2.5 mg at 10/31/22 1441 ROS: Review of Systems: See HPI for pertinent positives. All other review of systems is negative. PHYSICAL EXAMINATION BP 130/66 | Pulse 84 | Resp 14 | Wt 72.6 kg (160 lb) | BMI 26.63 kg/m | BSA 1.82 m Body mass index is 26.63 kg/m. General: no acute distress and stated age Head: normocephalic, no masses, lesions, tenderness or abnormalities Eyes: conjunctiva are pink and non-injected, sclera clear Neck: supple, no adenopathy, no bruits, normal jugular venous pulse, no hepatojugular reflux Chest: normal shape and normal respiratory effort Lungs: clear to auscultation and percussion Cardiac Exam: - regular rate & rhythm, no murmurs gallops or rubs - normal S1, normal S2 Pulses: 2(+) throughout Abdomen: abdomen soft, non-tender, no abnormal masses and no hepatosplenomegaly Musculoskeletal: no gait disturbance, no joint inflammation, no deforming arthritis Extremities: no edema and no cyanosis Neuro: grossly normal exam Laboratory Data Review: No recent data Impression: Chronic diastolic CHF secondary to valvular insufficiency Moderate to severe MR and severe TR, status post MitraClip XT W and mitral clip XT, 03/06/2023 Severe pulmonary hypertension, also following with Pulmonary History of sick sinus syndrome with recurrent syncope, status post LINQ, now status post dual chamber permanent pacemaker 07/2022 Paroxysmal atrial fibrillation, on sotalol. 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 She is to havea Watchman completed later this year. She is currently off anticoagulation due to chronic anemia. She will continue her current medications and I plan follow-up again in 3 months or earlier if needed. This chart was completed in part utilizing [employer] Speech Voice Recognition Software. Grammatical errors, random word insertions, prounoun errors, and incomplete sentences are an occasional consequence of this system due to software limitations, ambient noise, and hardware issues. Any formal questions or concerns about the content, text, or information contained within the body of this dictation should be directly addressed to the provider for clarification. I spent a total of 30-39 minutes (exact time 38 mins) on the date of service in preparation, delivery, and documentation of the care provided to Inga Baraakt excluding any time spent in the performance of separately billed services. Stephen Hewitt DO Cardiology, [address] [address] 06/17/2023 documented in this encounter Nursing Notes * Liz White LPN - 06/17/2023 1:22 PM EDT Examination Room: 17 Name: Inga Barakat Date of : 1940 Reason for Visit: Follow up Problems/Concerns: Denies complaint Interim Hosp(s): denies Chest Pain/SOB: denies MyChart Discussed: ALREADY ACTIVE Patient was instructed to not get up on the exam table until directed and assisted by their provider; patient is to remain seated in the chair/ wheelchair/ exam table for fall prevention and safety reasons. Patient is aware to have assistance to step down off exam table with personnel. documented in this encounter Plan of Treatment Upcoming Encounters Date Type Department Care Team (Late st Contact Info) Description 07/02/2023 10:00 AM EST Home Visit Cris at Home, [facility] [address] [place] [address] Michelle Hurt, RN 132 [facility] [place] [address] 07/31/2023 6:00 AM EST Hospital Encounter CRS Waiting [facility], Cardiac Recovery Suite Waiting Unit, [address] [place] [address] Wilbur Rivera MD [address] [place] [address] 07/31/2023 6:00 AM EST - 07/31/2023 8:00 AM EST Surgery CRS Wait[facility], Cardiac Recovery Suite Waiting Unit, [address] [place] [address] Wilbur Rivera MD [address] [place] [address] PERCUTANEOUS CLOSURE LEFT ATRIAL APPENDAGE IMPLANT 07/31/2023 6:00 AM EST Office Visit [facility], [place] [address] [place] [address] [facility] Cardiac [facility] [address] [place] [address] 08/22/2023 2:20 PM EST Office Visit Family Practice [address] [place] [address] [address] [facility] [place] [address] Florentin Calvo DO 293 [place] [address] 09/04/2023 2:40 PM EST Office Visit Otolaryngology [facility] [address] [facility] [place] [address] Cheri Castillo PA-C [address] [place] [address] 09/19/2023 8:30 AM EST Procedure Only Endoscopy, [facility] [address] [place] [address] Jana Vieira, DO [address] [place] [address] 09/22/2023 3:00 PM EST Office Visit Cardiology, [facility] [address] [facility] [place] [address] Stephen Hewitt, DO [address] [place] [address] 09/25/2023 1:40 PM EST Office Visit Nephrology, [facility] [address] [facility] [place] [address] Rosario Green MD [address] [facility] [place] [address] 10/14/2023 2:30 PM EST Office Visit Hematology/Oncolog y [facility] [address] [place] [address] Nereyda Metz CRNP [address] [place] [address] 10/24/2023 12:30 PM EST Office Visit Gynecology/Oncolog y, [place] [address], [place] [id number] Chris Peng PA-C [address] [place], [place] [address] 06/03/2024 2:15 PM EDT Office Visit Ophthalmology, [facility] [address] [place] [place] [address] Wilbur Benavides, DO [address] [facility] [place] [address] Scheduled Procedures Name Priority Associated Diagnoses Date/Ti me PERCUTANEOUS CLOSURE LEFT ATRIAL APPENDAGE IMPLANT Paroxysmal atrial fibrillation (HCC) 07/31/2023 6:00 AM EST Health Maintenance Due Date Last Done Comments Hepatitis B (1 of 3 - Risk 3-dose series) 2000 CKD PHOS USE SMARTSET 28486 05/01/2023 09/0 02/2022, 04/03/2022, 12/05/2020, Additional history exists HbA1c 08/23/2023 02/21/2023, 0 10/2022, 04/03/2022, Additional history exists TSH 09/24/2023 09/24/2022, 01/0 10/2022, 02/12/2022, Additional history exists Diabetic Foot Exam 10/01/2023 10/01/2022, 0 10/26/2021, 12/05/2020, Additional history exists GFR 11/07/2023 05/09/2023, 08/0 03/2023, 03/14/2023, Additional history exists Albumin/Creatinine Ratio 02/22/2024 023, 05/01/2022, 10/26/2021, Additional history exists CKD HGB USE SMARTSET 42100 04/11/202404/11, 04/11/2023, 04/01/2023, Additional history exists DIABETES-EYE [...] this encounter Medical Devices Implanted Type Area Edi Consultant Device Identifier Shelf Expiration Date Model / Serial / Lot Cath Thermodilution 6fr - [id number] Implanted:Qty: 1 on 01/24/2023 by Wilbur Rivera MD at [facility] [employer] TERE [id number] 10/15/2024 [id number] / / [id number] Mirtaclip G4 - [id number] Implanted:Qty: 1 on 03/10/[address] [facility] [employer] 11/19/2023 [id number] / / [id number] documented as of this encounter Visit Diagnoses Diagnosis Paroxysmal atrial fibrillation (HCC)- Primary Atrial fibrillation Cardiac pacemaker in situ- Primary SSS (sick sinus syndrome) (HCC) Sinoatrial node dysfunction Nonrheumatic mitral valve regurgitation Paroxysmal atrial fibrillation (HCC) Atrial fibrillation Status post implantation of mitral valve leaflet clip Paroxysmal atrial fibrillation (HCC) Atrial fibrillation documented in this encounter Advance Directives Documents on File Type Date Recorded Patient Nuclear Pharmacist Expl anation Advance Directives and Living Will 11/29/2022 ADVANCE DIRECTIVE / LIVING WILL Power of Automatic Centrifugal Station Operator 11/29/2022 POWER OF A TTORNEY Advance Directives and Living Will 10/24/2014 ADVANCE DIRECTIVE / LIVING WILL Power of Automatic Centrifugal Station Operator 10/24/2014 POWER OF A TTORNEY Latest [...] Agents on File Name Relationship [facility] Adult Child Health Care Agen t (per Health Care Power of Automatic Centrifugal Station Operator document) Care Teams Aperture Mask Etcher Relationship Specialty Start Date End Date Florentin Calvo DO [address] [place] [address] PCP - General Internal Medicine 03/24/13 documented as of this encounter
--- OUTSIDE RECORDS SUMMARY | 2023-08-14 23:35 | External Medical Summary | Summary of Care ---
Author Name Unknown Organization [facility] Address [address] [place] [address] Phone [phone] Care Team Providers Care Manufacturing Job Titles Name Role Phone Florentin Calvo DO Primary Care Provider [phone] Encounter Details Date Type Department Care Team Description 06/09/2023 Immunization Ancillary [address] [place] [address] College, Covid19 Vaccine [address] [place] [address] Arrived Allergies Active Allergy Reactions Severity Noted Date Comments Azithromycin Other (Please comment) 12/04/2021 QTC prolongation at [facility] Celecoxib Hives,Rash High 03/24/2013 Other reaction(s): [...] as of this encounter (statuses as of 06/09/2023) Medications Medication Sig Dispensed Refills Start Date End Date Status Realeyes 3D w/Device KitIndications:Type 2 diabetes mellitus with hemoglobin A1c goal of less than 7.0% ([facility]) Use up to 1 times [...] Wheezing. 15 g 12 06/13/2022 Active OneTouch VerPump! In Vitro Strip (Glucose Blood) Test blood [...] (Lipitor)Indication s:PVD (peripheral vascular disease) ([facility]),Type 2 diabetes mellitus with stage 3a chronic kidney disease and hypertension ([facility]) TAKE ONE TABLET BY MOUTH EVERY DAY DIRECTED 100 Tablet 3 03/31/2023 Active Ipratropium [place] 0.03 % Nasal Solution (Atrovent)Indicatio ns:Chronic rhinitis [...] bedtime. 90 Tablet 3 05/16/2023 Active Tiotropium [place]-Olodaterol 2.5-2.5 MCG/ACT Inhalation Aerosol Solution (Stiolto Respimat) [...] as of this encounter (statuses as of 06/09/2023) Active Problems Problem Noted Date S/P mitral valve clip implantation 03/06 Atherosclerosis of [place] coronary arter y without angina pectoris 02/13/2023 Last Assessment & Plan: Continue statin, sotalol. ASA History of TIA (transient ischemic attac k) 11/29/2022 Last Assessment & Plan: -Recent admission to [facility], presented with numbness of tongue and slurred [...] next visit, she agreed. 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 Last Assessment & Plan: Now just using [...] as of this encounter (statuses as of 06/09/2023) Resolved Problems Problem Noted Date Resolved Date [...] as of this encounter (statuses as of 06/09/2023) Immunizations Name Administration Dates Next Due COVID-19 mRNA, LNP-s, No Pre serve, 2-Dose Series (Moderna) 06/23/2021,10/25/2020,09/28/2020 COVID-19, LNP-s, No Preserve , Larry-sucrose, Ages 12+ (Pfizer) 04/09/2022 COVID-19, MRNA-LNP, 23-24, P F, 30 MCG/0.3 mL, 12 YRS AND ABOVE, IM ([email or web address]) 06/09/2023 Covid-19, Mrna, Lnp-s, Pf, B ivalent, 30 Mcg, IM, 12 yrs and above (CL3VER) 09/10/2022 HEP A - Hepatitis A (Adult [...] or do you have serious difficulty hearing? No-[place] can hear w/ hearing aid 03/07/2023 Are [...] Visit Cardiology [facility] Hewitt, DO [address] [facility] [address] 07/02/2023 [facility] Visit [facility] Michelle Hurt, RN [address] [facility] [place] [address] 07/31/2023 Hospital Encounter Cardiac Operations Research Manager Wilbur Rivera MD [address] [place], [place] [id number] 07/31/2023 Surgery Cardiac Operations Research Manager Wilbur Rivera MD [address] [place] [address] PERCUTANEOUS CLOSURE LEFT ATRIAL APPENDAGE IMPLANT 07/31/2023 Office Visit Cardiology Michelle, Cardiac Recovery [facility] [address] [place] [address] 08/22/2023 Office Visit Family Medicine Florentin Calvo, DO [address] [place] [address] 09/19/2023 Procedure Only Endoscopy Jana Vieira, DO [address] [facility], [place] [address] 09/25/2023 Office Visit Nephrology Rosario Green MD [address] [place] [address] 10/14/2023 Office Visit Hematology Oncology Nereyda Metz CRNP [address] [facility] [place] [address] 10/24/2023 Office Visit Gynecology Oncology Chris Peng PA-C [address] [facility] [address] 06/03/2024 Office Visit Ophthalmology Wilbru Benavides, DO [address] [place] [address] Scheduled Procedures Name Priority Associated Diagnoses Date/Ti me PERCUTANEOUS CLOSURE LEFT ATRIAL APPENDAGE IMPLANT Paroxysmal atrial fibrillation (HCC) 07/31/2023 6:00 AM EST Health Maintenance Due Date Last Done Comments COVID-19 Vaccine ( season) 2023 06/09/2023, 09/10/2022, 04/09/2022, Additional history exists CKD PHOS USE SMARTSET 71166 05/01/2023 09/0 02/2022, 04/03/2022, 12/05/2020, Additional history exists HbA1c 08/23/2023 02/21/2023, 01/0 10/2022, 04/03/2022, Additional history exists TSH 09/24/2023 09/24/2022, 01/0 10/2022, 02/12/2022, Additional history exists Diabetic Foot Exam 10/01/2023 10/01/2022, 0 10/26/2021, 12/05/2020, Additional history exists GFR 11/07/2023 05/09/2023, 08/0 03/2023, 03/14/2023, Additional history exists Albumin/Creatinine Ratio 02/22/2024 023, 05/01/2022, 10/26/2021, Additional history exists CKD HGB USE SMARTSET 68052 04/11/202404/11, 04/11/2023, 04/01/2023, Additional history exists DIABETES-EYE [...] encounter Medical Devices Implanted Type Area Artificial Limb Maker Device Identifier Shelf Expiration Date Model / Serial / Lot Cath Thermodilution 6fr - [id number] Implanted:Qty: 1 on 01/24/2023 by Wilbur Rivera MD at [facility] [employer] [id number] 10/15/2024 [id number] / / [id number] Mirtaclip G4 - [id number] Implanted:Qty: 1 on 03/10/2023 at [facility] [employer] 11/19/2023 [id number] / / [id number] documented as of this encounter Advance Directives Documents on File Type Date Recorded Patient Irrigation Installation Specialist Expl anation Advance Directives and Living Will 11/29/2022 ADVANCE DIRECTIVE / LIVING WILL Power of Mirror Maker 11/29/2022 POWER OF A TTORNEY Advance Directives and Living Will 10/24/2014 ADVANCE DIRECTIVE / LIVING WILL Power of Mirror Maker 10/24/2014 POWER OF A TTORNEY Latest Code [...] Agent [facility] Communication Bright [place] Adult Child Health Care Agen t (per Health Care Power of Mirror Maker document) Care Teams Manufacturing Job Titles Relationship Specialty Start Date End Date Florentin Calvo, [address] [place] [address] PCP - General Internal Medicine 03/24/13 documented as of this encounter
--- OUTSIDE RECORDS SUMMARY | 2023-08-14 23:35 | External Medical Summary | Summary of Care ---
Author Name Unknown Organization [facility] Address [address] [place] [address] Phone [phone] Care Team Providers Care Waiter/Waitress Economy Class Name Role Phone Florentin Calvo DO Primary Care Provider [phone] Reason for Visit * Reason Onset Date Comments Appointment 05/29/2023 Advice 05/29/2023 Encounter Details Date Type Department Care Team Description 05/29/2023 Telephone Gastroenterology, [facility] [address] [facility] [place] [address] Jana Vieira DO [address] [place] [address] Appointment; Advice Allergies Active Allergy Reactions Severity Noted Date Comments Azithromycin Other (Please comment) 12/04/2021 QTC prolongation at [facility] Celecoxib Hives,Rash High 03/24/2013 Other reaction(s): [...] Dispensed Refills Start Date End Date Status Blue Crow MediaTouch Verio w/Device KitIndications:Type 2 diabetes mellitus with hemoglobin A1c goal of less than 7.0% ([facility]) Use up to 1 times a day. [...] Tablet (Lipitor)Indication s:PVD (peripheral vascular disease) ([facility]),Type 2 diabetes mellitus with stage 3a chronic kidney disease and hypertension ([facility]) TAKE ONE TABLET BY MOUTH EVERY DAY DIRECTED 100 Tablet 3 03/31/2023 Active Ipratropium [place] 0.03 % Nasal Solution (Atrovent)Indicatio ns:Chronic rhinitis [...] bedtime. 90 Tablet 3 05/16/2023 Active Tiotropium [place]-Olodaterol 2.5-2.5 MCG/ACT Inhalation Aerosol Solution (Stiolto Respimat) [...] mitral valve clip implantation 03/06 Atherosclerosis of [place] coronary arter y without angina pectoris 02/13/2023 Last Assessment & Plan: Continue statin, sotalol. 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 No-[place] can hear w/ hearing aid 03/07/2023 Are [...] Miscellaneous Notes * Telephone Encounter - JESS Duncan - 05/30/2023 10:08 AM EDT Noted JESS Murdock 05/30/2023 10:09 AM * Telephone Encounter - Nish Chavarria MD - 05/29/2023 3:30 PM EDT If GI procedure is elective, would hold until 1 month after Watchman procedure completed. * Telephone Encounter - RADHA Mantilla - 05/29/2023 2:48 PM EDT Kathy dtr [phone] Pts dtr called she is asking for [...] Pt is having a watchmen done in [place] on 07/31/23 pt's daughter is wondering if she should reschedule her EUS at [facility] on 07/11/23 due to her watchmen being pushed out until July. Please Advise. Thank you! documented in this encounter Plan of Treatment Upcoming Encounters Date Type Specialty Care Team Description 06/17/2023 Office Visit Cardiology Stephen Hewitt, DO [address] [place] [address] 06/26/2023 Office Visit Otolaryngology Cheri Castillo PA-C [address] [place] [address] 07/02/2023 Home Visit [facility] Michelle Hurt RN [address] [place] [address] 07/11/2023 Procedure Only Endoscopy Jana Vieira, DO [address] [place] [address] 07/31/2023 Hospital Encounter Cardiac Human Resources Project Coordinator Wilbur Rivera MD [address] [place] [address] 07/31/2023 Surgery Cardiac Human Resources Project Coordinator Wilbur Rivera MD [address] [place] [address] PERCUTANEOUS CLOSURE LEFT ATRIAL APPENDAGE IMPLANT 07/31/2023 Office Visit Cardiology Michelle, Cardiac Recovery [facility] [address] [place] [address] 08/22/2023 Office Visit Family Medicine Florentin Calvo, DO [address] [facility] [place] [place] [address] 09/25/2023 Office Visit Nephrology Rosario Green MD [address] [place] [address] 10/14/2023 Office Visit Hematology Oncology Nereyda Metzn, SUPERVISOR NET MAKING [address] [facility] [place] [address] 10/24/2023 Office Visit Gynecology Oncology Chris Peng PA-C [address] [facility] [place] [address] 06/03/2024 Office Visit Ophthalmology Wilbur Benavides, [address] [facility] [place] [address] Scheduled Procedures Name Priority Associated Diagnoses Date/Ti me PERCUTANEOUS CLOSURE LEFT ATRIAL APPENDAGE IMPLANT Paroxysmal atrial fibrillation (HCC) 07/31/2023 6:00 AM EST Health Maintenance Due Date Last Done Comments COVID-19 Vaccine ( season) 2023 09/10/2022, 04/09/2022, 06/23/2021, Additional history exists CKD PHOS USE SMARTSET 36209 05/01/2023 09/0 02/2022, 04/03/2022, 12/05/2020, Additional history exists HbA1c 08/23/2023 02/21/2023, 01/0 10/2022, 04/03/2022, Additional history exists TSH 09/24/2023 09/24/2022, 01/0 10/2022, 02/12/2022, Additional history exists Diabetic Foot Exam 10/01/2023 10/01/2022, 0 10/26/2021, 12/05/2020, Additional history exists GFR 11/07/2023 05/09/2023, 08/0 03/2023, 03/14/2023, Additional history exists Albumin/Creatinine Ratio 02/22/202402/21/2 023, 05/01/2022, 10/26/2021, Additional history exists CKD HGB USE SMARTSET 20134 04/11/202404/11, 04/11/2023, 04/01/2023, Additional history exists DIABETES-EYE [...] this encounter Medical Devices Implanted Type Area Safety Instruction Police Officer Device Identifier Shelf Expiration Date Model / Serial / Lot Cath Thermodilution 6fr - [id number] Implanted:Qty: 1 on 01/24/2023 by Wilbur Rivera MD at [facility] [employer] [id number] 10/15/2024 [id number] / / [id number] Mirtaclip G4 - [id number] Implanted:Qty: 1 on 03/10/2023 at [facility] [employer] 11/19/2023 [id number] / / [id number] documented as of this encounter Advance Directives Documents on File Type Date Recorded Patient Technical Specialist Expl anation Advance Directives and Living Will 11/29/2022 ADVANCE DIRECTIVE / LIVING WILL Power of Supervisor Of Instruction 11/29/2022 POWER OF A TTORNEY Advance Directives and Living Will 10/24/2014 ADVANCE DIRECTIVE / LIVING WILL Power of Supervisor Of Instruction 10/24/2014 POWER OF A TTORNEY Latest Code [...] Agents on File Name Relationship Healthcare Agent [facility] Communication Bright [place] Adult Child Health Care Ageandreia t (per Health Care Power of Supervisor Of Instruction document) Care Teams Waiter/Waitress Economy Class Relationship Specialty Start Date End Date Florentin Calvo, DO [address] [place] [address] PCP - General Internal Medicine 03/24/13 documented as of this encounter
--- OUTSIDE RECORDS SUMMARY | 2023-08-14 23:36 | External Medical Summary | Summary of Care ---
Author Name Unknown Organization [facility] Address [address] [place] [address] Phone [phone] Care Team Providers Care Court Attendant Name Role Phone Florentin Calvo DO Primary Care Provider [phone] Reason for Visit * Reason Onset Date Comments Appointment 05/29/2023 Encounter Details Date Type Department Care Team Description 05/29/2023 Telephone [facility]ology, [facility] [address] [facility] [place] [address] Jana Vieira DO [address] [place] [address] Appointment Allergies Active Allergy Reactions Severity Noted Date Comments Azithromycin Other (Please comment) 12/04/2021 QTC prolongation at [facility] Celecoxib Hives,Rash High 03/24/2013 Other reaction(s): [...] Dispensed Refills Start Date End Date Status Startupxplore Verio w/Device KitIndications:Type 2 diabetes mellitus with hemoglobin A1c goal of less than 7.0% ([facility]) Use up to 1 times [...] (Lipitor)Indication s:PVD (peripheral vascular disease) ([facility]),Type 2 diabetes mellitus with stage 3a chronic kidney disease and hypertension ([facility]) TAKE ONE TABLET BY MOUTH EVERY DAY DIRECTED 100 Tablet 3 03/31/2023 Active Ipratropium [place] 0.03 % Nasal Solution (Atrovent)Indicatio ns:Chronic rhinitis [...] bedtime. 90 Tablet 3 05/16/2023 Active Tiotropium [place]-Olodaterol 2.5-2.5 MCG/ACT Inhalation Aerosol Solution (Stiolto Respimat) [...] mitral valve clip implantation 03/06 Atherosclerosis of [place] coronary arter y without angina pectoris 02/13/2023 Last Assessment & Plan: Continue statin, sotalol. 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 No-[place] can hear w/ hearing aid 03/07/2023 Are [...] encounter Miscellaneous Notes * Telephone Encounter - Jana Vieira DO - 05/29/2023 12:16 PM EDT This question may be best answered by her cardiology provider. I believe the EUS was requested for evaluation for dysphagia and chronically elevated liver tests * Telephone Encounter - Crystal Francis - 05/29/2023 11:54 AM EDT Pt is having a watchmen done in [place] on 07/31/23 pt's daughter is wondering if she should reschedule her EUS at [facility] on 07/11/23 due to her watchmen being pushed out until July. Please Advise. Thank you! documented in this encounter Plan of Treatment Upcoming Encounters Date Type Specialty Care Team Description 06/17/2023 Office Visit Cardiology Stephen Hewtit DO [address] [place] [address] 06/26/2023 Office Visit Otolaryngology Cheri Castillo PA-C [address] [place] [address] 07/02/2023 Home Visit [facility] Michelle Hurt RN [address] [place] [address] 07/11/2023 Procedure Only Endoscopy Jana Vieira DO [address] [place] [address] 07/31/2023 Hospital Encounter Cardiac Director Medical Writing Wilbur Rivera MD [address] [facility] [place] [address] 07/31/2023 Surgery Cardiac Director Medical Writing Wilbur Rivera MD [address] [place] [address] PERCUTANEOUS CLOSURE LEFT ATRIAL APPENDAGE IMPLANT 07/31/2023 Office Visit Cardiology [place], Cardiac Recovery [place] [address] [place] [address] 08/22/2023 Office Visit Family Medicine Florentin Calvo DO [address] [place] [address] 09/25/2023 Office Visit Nephrology Rosario Green MD [address] [place], [place] [address] 10/14/2023 Office Visit Hematology Oncology Nereyda Metz CRNP [address] [place] [address] 10/24/2023 Office Visit Gynecology Oncology Chris Peng PA-C [address] [place], [place] [phone] 06/03/2024 Office Visit Ophthalmology Wilbur Benavides DO [address] [place], [place] [phone] Scheduled Procedures Name Priority Associated Diagnoses Date/Ti me PERCUTANEOUS CLOSURE LEFT ATRIAL APPENDAGE IMPLANT Paroxysmal atrial fibrillation (HCC) 07/31/2023 6:00 AM EST Health Maintenance Due Date Last Done Comments COVID-19 Vaccine ( season) 2023 09/10/2022, 04/09/2022, 06/23/2021, Additional history exists CKD PHOS USE SMARTSET 61788 05/01/202302/2022, 04/03/2022, 12/05/2020, Additional history exists HbA1c 08/23/2023 02/21/2023, 10/2022, 04/03/2022, Additional history exists TSH 09/24/2023 09/24/2022, 01/0 10/2022, 02/12/2022, Additional history exists Diabetic Foot Exam 10/01/2023 10/01/2022, 0 10/26/2021, 12/05/2020, Additional history exists GFR 11/07/2023 05/09/2023, 08/0 03/2023, 03/14/2023, Additional history exists Albumin/Creatinine Ratio 02/22/2024 023, 05/01/2022, 10/26/2021, Additional history exists CKD HGB USE SMARTSET 69105 04/11/202404/11, 04/11/2023, 04/01/2023, Additional history exists DIABETES-EYE [...] this encounter Medical Devices Implanted Type Area Aircraft Air Conditioning Mechanic Device Identifier Shelf Expiration Date Model / Serial / Lot Cath Thermodilution 6fr - [id number] Implanted:Qty: 1 on 01/24/2023 by Wilbur Rivera MD at [facility] [employer] [id number] 10/15/2024 [id number] / / [id number] Mirtaclip G4 - [id number] Implanted:Qty: 1 on 03/10/2023 at [facility] [employer] 11/19/2023 [id number] / / [id number] documented as of this encounter Advance Directives Documents on File Type Date Recorded Patient Fruit Shipper Expl anation Advance Directives and Living Will 11/29/2022 ADVANCE DIRECTIVE / LIVING WILL Power of Permit Coordinator 11/29/2022 POWER OF A TTORNEY Advance Directives and Living Will 10/24/2014 ADVANCE DIRECTIVE / LIVING WILL Power of Permit Coordinator 10/24/2014 POWER OF A TTORNEY Latest [...] Agen t (per Health Care Power of Permit Coordinator document) Care Teams Court Attendant Relationship Specialty Start Date End Date Florentin Calvo, [address] [place] [address] PCP - General Internal Medicine 03/24/13 documented as of this encounter
--- OUTSIDE RECORDS SUMMARY | 2023-08-14 23:36 | External Medical Summary | Summary of Care ---
Author Name Unknown Organization [facility] Address [address] [place] [address] Phone [phone] Care Team Providers Care Medical Management Trainer Name Role Phone Florentin Calvo DO Primary Care Provider [phone] Reason for Visit * Reason Comments Follow Up Encounter Details Date Type Department Care Team Description 05/23/2023 Office Visit Family Practice [address] [place] [address] [address] [place] [phone] Florentin Calvo DO [address] [place] [address] Paroxysmal atrial fibrillation (HCC)*; Type 2 diabetes mellitus with hemoglobin A1c goal of less than 7.0% ([facility]); Type 2 diabetes mellitus with stage 3b chronic kidney disease, without long-term current use of insulin (HCC); Chronic diastolic CHF (congestive heart failure) ([facility]); Secondary hyperparathyroidism, renal ([facility]); 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 claudication; Acquired hypothyroidism; Iron deficiency anemia, unspecified iron deficiency anemia type; Tremor; Obstructive sleep apnea of adult; Type 2 diabetes mellitus with polyneuropathy (HCC); Current moderate episode of major depressive disorder without prior episode (HCC); Moderate persistent asthma without complication; Cardiac pacemaker in situ; S/P mitral valve clip implantation; Atherosclerosis of [place] coronary artery of [place] heart without angina pectoris; Severe tricuspid regurgitation; History of endometrial cancer Allergies Active Allergy Reactions Severity Noted Date [...] hives Vancomycin Hives,Rash High 03/24/2013 Other reaction(s): Jdoi syn. . documented as of this encounter (statuses as of 05/23/2023) Medications Medication Sig Dispensed Refills Start Date End Date [facility] Ifeoma w/Device KitIndications:Typ e 2 diabetes mellitus with hemoglobin A1c goal of less than 7.0% ([facility]) Use up to 1 times [...] for Wheezing. 15 g 12 06/13/2022 Active Knovel In Vitro Strip (Glucose Blood) Test blood [...] MORNING 100 Tablet 1 02/03/2023 4 Active Levothyroxine Sodium 125 MCG Oral Tablet (Levoxyl) TAKE ONE TABLET BY MOUTH FIRST THING IN THE MORNING 100 Tablet 1 01/31/2023 4 Active ALPRAZolam 0.5 MG Oral Tablet (xaNAX)Indications :Persistent insomnia,Anxiety TAKE ONE TABLET BY MOUTH AT BEDTIME NEEDED FOR SLEEP OR ANXIETY USES HALF OF A TABLET NEEDED FOR ANXIETY AND SLEEP 90 Tablet 0 01/17/2023 3 Active Montelukast Sodium 10 MG Oral Tablet (Singulair)Indicat ions:Moderate persistent asthma without complication TAKE ONE TABLET BY MOUTH AT BEDTIME 100 Tablet 3 08/05/2022 3 Active Torsemide 20 MG Oral Tablet (Demadex) [...] Oral Tablet (Lipitor)Indicatio ns:PVD (peripheral vascular disease) ([facility]),Type 2 diabetes mellitus with stage 3a chronic kidney disease and hypertension ([facility]) TAKE ONE TABLET BY MOUTH EVERY DAY DIRECTED 100 Tablet 3 03/31/2023 Active Ipratropium [place] 0.03 % Nasal Solution (Atrovent)Indicati ons:Chronic rhinitis [...] bedtime. 90 Tablet 3 05/16/2023 Active Tiotropium [place]-Olodaterol 2.5-2.5 MCG/ACT Inhalation Aerosol Solution (Stiolto Respimat) Inhale 2 Puffs by mouth in the morning. 12 g 3 05/23/2023 Active Fluticasone-Salmet wero 250-50 MCG/ACT Inhalation Aerosol Powder Breath Activated (Advair Diskus) Inhale 1 Puff by mouth in the morning and 1 Puff before bedtime. 60 Each 2 12/12/2022 3 Discontinue d(Medicatio n/Dose Changed) Tiotropium [place]-Olodaterol 2.5-2.5 MCG/ACT Inhalation Aerosol Solution (Stiolto Respimat) Inhale 2 Puffs by mouth in the morning. 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 & Plan: Now just [...] as of this encounter (statuses as of 05/23/2023) Resolved Problems Problem Noted Date Resolved Date [...] as of this encounter (statuses as of 05/23/2023) Immunizations Name Administration Dates Next Due COVID-19 [...] Passive Smoke Exposure: Past Smokeless Tobacco: Never Tobacco Cessation:Counseling Given: Yes Alcohol Use Standard Drinks/Week Comments No 0 [...] Sign Reading Time Taken Comments Blood Pressure 110/60 05/23/2023 3:05 PM EDT Pulse 62 05/23/2023 3:05 PM EDT Temperature 35.3 C (95.6 F) 05/23/2023 3:05 PM ED T Respiratory Rate 13 05/23/2023 3:05 PM EDT Oxygen Saturation 98% 05/23/2023 3:05 PM EDT Inhaled Oxygen Concentration - - Weight 71.9 kg (158 lb 8 oz) 05/23/2023 3:05 PM EDT Height 165.1 cm (5' 5") 05/23/2023 3:05 PM EDT Body Mass Index 26.38 05/23/2023 3:05 PM EDT documented in this encounter Functional Status Functional Status Response Date of Assess ment Are you deaf or do you have serious difficulty hearing? No-[place] can hear w/ hearing aid 03/07/2023 Are [...] as of this encounter Progress Notes * Florentin Calvo, - 05/23/2023 4:27 PM EDT SUBJECTIVE: Inga Barakat is a 82 year old female. Chief Complaint Patient presents with Follow Up HPI: Patient is an 82 year old female with a history of Atrial Fibrillation, Pacemaker Implant, Severe Mitral Valve Regurgitation repaired with Mitral Valve Clip, Severe Tricuspid Valve Regurgitation, Pulmonary HTN, CKD stage III, Lumbar Spinal Stenosis, PVD of the right lower extremity, Depression, Cervical Spinal Fusion, Asthma, Essential Tremor, Adenocarcinoma of the Uterus treated with Hysterectomy, Iron Deficiency Anemia, Chronic Diastolic CHF, and bilateral hearing loss that is seen for followup. The patient is scheduled for watchman implant in 07/2023. Patient Active Problem List Diagnosis Code Type 2 diabetes mellitus with hemoglobin A1c goal of less than 7.0% (HCC) E11.9 Vertigo R42 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 claudication M48.061 Hypothyroidism E03.9 Displacement of cervical intervertebral disc without myelopathy M50.20 Meniere's disease H81.09 Paroxysmal atrial fibrillation (HCC) I48.0 Obstructive sleep apnea of adult G47.33 Tremor R25.1 Iron deficiency anemia D50.9 Angiodysplasia of colon with hemorrhage K55.21 Acquired renal cyst N28.1 Controlled substance agreement signed Z79.899 Type 2 diabetes mellitus with polyneuropathy (HCC) E11.42 Secondary hyperparathyroidism, renal (HCC) N25.81 Pulmonary hypertension (HCC) I27.20 Current moderate episode of major depressive disorder without prior episode (HCC) F32.1 Moderate persistent asthma without complication J45.40 Gastro-esophageal reflux disease without esophagitis K21.9 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 (HCC) E11.319 Pure hypercholesterolemia E78.00 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.0 Aortic atherosclerosis (HCC) I70.0 Chronic kidney disease, stage 3b (HCC) N18.32 PVD (peripheral vascular disease) (HCC) I73.9 Chronic diastolic CHF (congestive heart failure) (HCC) I50.32 Type 2 diabetes mellitus with stage 3b chronic kidney disease, without long-term current use of insulin (HCC) E11.22, N18.32 Cardiac pacemaker in situ Z95.0 History of endometrial cancer Z85.42 Normocytic anemia D64.9 Primary osteoarthritis of right knee M17.11 Severe tricuspid regurgitation I07.1 History of TIA (transient ischemic attack) Z86.73 Atherosclerosis of [place] coronary artery without angina pectoris I25.10 S/P mitral valve clip implantation Z98.890, Z95.818 Current Outpatient Medications Medication Sig Dispense Refill Aspirin 81 MG Oral Tablet Delayed Release Take 1 Tablet by mouth daily. Vitamin D3 50 MCG (1999 UT) Oral Capsule Take 2 Capsules by mouth in the morning. 60 Capsule 5 Vitamin B-12 100 MCG Oral Tablet (vitamin [...] MOUTH EVERY DAY DIRECTED 100Tablet 3 Ipratropium [place] 0.03 % Nasal Solution (Atrovent) Administer 2 [...] mouth at bedtime. 90 Tablet 3 Tiotropium [place]-Olodaterol 2.5-2.5 MCG/ACT Inhalation Aerosol Solution (Stiolto Respimat) Inhale2 Puffs by mouth in the morning. 12 g 3 OneTouch Verio w/Device Kit Use up to 1 times a day. E11.9 1 Kit 0 Acetaminophen 325 MG Oral Tablet (Tylenol) Take 2 Tablets by mouth every 6 hours as needed. 100 Tablet 0 Levalbuterol Tartrate 45 MCG/ACT Inhalation Aerosol (Xopenex HFA) Inhale by mouth 1 Puff every 4 hours as needed for Wheezing. 15 g 12 OneTouch Verio In Vitro Strip (Glucose Blood) Test blood sugars up to 2 times a day E11.9 200 Strip3 Current Facility-Administered Medications Medication Dose Route Frequency Provider Last Rate Last Admin Albuterol Sulfate (Proventil) (2.5 MG/3ML) 0.083% inhalation solution 2.5 mg 2.5 mg Nebulizer PRN Abigail Goncalves PA-C Albuterol Sulfate (Proventil) (5 MG/ML) 0.5% *conc* inhalation solution 2.5 mg 2.5 mg Nebulizer PRRashawn Goncalves PA-C Albuterol Sulfate (Proventil) (5 MG/ML) 0.5% *conc* inhalation solution 2.5 mg 2.5 mg Nebulizer PRJESS Milian Albuterol Sulfate (Proventil) (2.5 MG/3ML) 0.083% inhalation solution 2.5 mg 2.5 mg Nebulizer PRJESS Arevalo 2.5 mg at 10/31/22 1441 The patient's medication list was reviewed and updated as needed. 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 Pleural effusion Pulmonary arterial hypertension (HCC) Pure hypercholesterolemia 07/02/2021 PVD (peripheral vascular disease) ([facility]) 05/15/2022 Retinopathy Secondary hyperparathyroidism, renal ([facility]) 12/17/2018 Severe mitral valve regurgitation 10/30/2022 Severe tricuspid regurgitation 11/18/2022 Spinal stenosis 07/2002 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 claudication 03/24/2013 Vertigo 03/24/2013 Past Surgical History: Procedure Laterality Date COLONOSCOPY, DIAGNOSTIC (RECTUM) 10/12/2014 inflammatory tissue on bx, diverticulosis/[facility] COLONOSCOPY, DIAGNOSTIC (RECTUM) 01/05/2016 diverticulosis, multiple non-bleeding colonic angioectasias COLONOSCOPY, DIAGNOSTIC (RECTUM) 04/15/2016 angiodysplastic lesion, diverticulosis/COLONOSCOPY FLEXIBLE PROXIMAL DIAGNOSTIC performed by Izzy Stone MD at [facility] COLONOSCOPY, DIAGNOSTIC (RECTUM) 11/10/2020 Hemorrhoids, multi polyps, diverticulosis in sigmoid colon/ biopsy show adenomatous polyp/ COLONOSCOPY FLEXIBLE PROXIMAL DIAGNOSTIC performed by Maine Stone MD at [facility] COLONOSCOPY, DIAGNOSTIC (RECTUM) 03/11/2022 poor prep / [facility] CORONARY ANGIOGRAPHY W/RIGHT+LEFT CATH Right 01/24/2023 CORONARY ANGIOGRAPHY W/RIGHT+LEFT CATH performed by Wilbur Rivera MD at [facility] CYSTOSCOPY 06/2012 EGD, FLEXIBLE, DIAGNOSTIC 10/12/2014 normal bx, HH/[facility] EGD, FLEXIBLE, DIAGNOSTIC 01/05/2016 ESOPHAGOGASTRODUODENOSCOPY (EGD), FLEXIBLE, TRANSORAL, DIAGNOSTIC performed by Maine Stone MD at [facility] EGD, FLEXIBLE, DIAGNOSTIC 03/11/2022 Multiple small non-bleeding fundic gland polyps / [facility] EGD, FLEXIBLE, DIAGNOSTIC 12/09/2022 mild-mod inflammation / [facility] LAPAROSCOPY TOTAL HYSTX, UTERUS 250GM OR LESS TUBE/OVARY N/A 02/22/2020 ROBOTIC LAPAROSCOPIC HYSTERECTOMY REMOVAL TUBES AND OVARIES FOR UTERUS 250GM OR LESS performed by Florentin Perez MD at [facility] LAPAROSCOPY; CHOLECYSTECTOMY N/A 06/06/2020 LIGATE/CUT OVIDUCT(S) MAMMOGRAM BREAST NEEDLE BIOPSY CORE LEFT Left 09/19/2015 benign NECK SPINE FUSION (CERV, BELOW C2) 1993 1999,2011 PATIENT EDU, LUMBAR LAMINECTOMY 2001 1996 too [place] TONSILLECTOMY PRIMARY/SECONDARY LESS THAN AGE 12 Bilateral REPAIR RUPTURED ROTATOR CUFF, ACUTE Left 08/08/2015 SINUS SURGERY PROCEDURE NEC 1994 TRANSCATH REPAIR MITRAL VALVE, INITIAL Bilateral 03/06/2023 TRANSCATHETER MITRAL VALVE REPAIR performed by Wilbur Rivera MD at [facility] Review of patient's allergies indicates: Allergen Reactions [...] Azithromycin Other (Please comment) QTC prolongation at [facility] Nickel Swelling Other reaction(s): Unknown Review of Systems Constitutional: Negative for appetite change, fatigue and unexpected weight change. HENT: Negative for congestion, sore throat and trouble swallowing. Respiratory: Negative for cough, shortness of breath and wheezing. Cardiovascular: Negative for chest pain, palpitations and leg swelling. Gastrointestinal: Negative for abdominal pain, blood in stool, constipation, diarrhea, nausea and vomiting. Genitourinary: Negative for dysuria and hematuria. Musculoskeletal: Negative for back pain and gait problem. Neurological: Negative for dizziness, syncope and headaches. Psychiatric/Behavioral: Negative for confusion, decreased concentration and sleep disturbance. OBJECTIVE: BP 110/60 | Pulse 62 | Temp 35.3 C (95.6 F) | Resp 13 | Ht 1.651 m (5' 5") | Wt 71.9 kg (158 lb8 oz) | SpO2 98% | BMI 26.38 kg/m | BSA 1.82 m Physical Exam Vitals and nursing note reviewed. Constitutional: General: She is not in acute distress. Appearance: Normal appearance. She is not toxic-appearing. HENT: Head: Normocephalic and atraumatic. Cardiovascular: Rate and Rhythm: Normal rate and regular rhythm. Heart sounds: Murmur heard. No gallop. Pulmonary: Effort: Pulmonary effort is normal. Breath sounds: Normal breath sounds. No wheezing, rhonchi or rales. Abdominal: General: Bowel sounds are normal. There is no distension. Palpations: Abdomen is soft. Tenderness: There is no abdominal tenderness. Musculoskeletal: Right lower leg: No edema. Left lower leg: No edema. Neurological: Mental Status: She is alert and oriented to person, place, and time. Mental status is at baseline. Motor: No weakness. Gait: Gait normal. Psychiatric: Mood and Affect: Mood normal. Behavior: Behavior normal. Thought Content: Thought content normal. Judgment: Judgment normal. PLAN AND ASSESSMENT: Paroxysmal atrial fibrillation (HCC) (Primary) Continue Sotalol Patient scheduled for watchman implant Type 2 diabetes mellitus with hemoglobin A1c goal of less than 7.0% ([facility]) Diet controlled Type 2 diabetes mellitus with stage 3b chronic kidney disease, without long-term current use of insulin ([facility]) Chronic diastolic CHF (congestive heart failure) ([facility]) Continue Torsemide Secondary hyperparathyroidism, renal ([facility]) 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 claudication Acquired hypothyroidism Continue Levothyroxine Iron deficiency anemia, unspecified iron deficiency anemia type Continue Ferrous sulfate Tremor Obstructive sleep apnea of adult Type 2 diabetes mellitus with polyneuropathy ([facility]) Current moderate episode of major depressive disorder without prior episode ([facility]) Continue Sertraline Moderate persistent asthma without complication Continue Continue Montelukast and Albuterol Cardiac pacemaker in situ S/P mitral valve clip implantation Atherosclerosis of [place] coronary artery of [place] heart without angina pectoris Continue ASA Severe tricuspid regurgitation History of endometrial cancer Treated with hysterectomy Other orders - Tiotropium [place]-Olodaterol 2.5-2.5 MCG/ACT Inhalation Aerosol Solution (Stiolto Respimat); Inhale 2 Puffs by mouth in the morning. Follow Up: Return in about 3 months (around 08/22/2023), or if symptoms worsen or fail to improve. Florentin Calvo DO 4:27 PM 05/23/2023 * Veronique Fisherarvind Patel, [facility] - 05/23/2023 2:54 PM EDT Stiolto respimat vs. Advair? Blood sugar monitor documented in this encounter Plan of Treatment Upcoming Encounters Date Type Specialty Care Team Description 05/28/2023 Home Visit [facility] Mónica Angeles, RN [address] [place] [address] 06/17/2023 Office Visit Cardiology Stephen Hewitt, [address] [place] [address] 06/26/2023 Office Visit Otolaryngology Cheri Castillo PA-C [address] [place] [address] 07/11/2023 Procedure Only Endoscopy Jana Vieira, DO [address] [place] [address] 07/31/2023 Hospital Encounter Cardiac Foreign Language Professor Wilbur Rivera MD [address] [place] [address] 07/31/2023 Surgery Cardiac Foreign Language Professor Wilbur Rivera MD [address] [facility] [place] [address] PERCUTANEOUS CLOSURE LEFT ATRIAL APPENDAGE IMPLANT 07/31/2023 Office Visit Cardiology [facility] S[facility]a [address] [facility] [place] [address] 08/22/2023 Office Visit Family Medicine Florentin Calvo, DO [address] [place] [address] 09/25/2023 Office Visit Nephrology GreenRosario alcantar MD [address] [place] [address] 10/14/2023 Office Visit Hematology Oncology Nereyda Metz CRNP [address] [place] [address] 10/24/2023 Office Visit Gynecology Oncology Chris Peng PA-C [address] [place], [place] [id number] 06/03/2024 Office Visit Ophthalmology Wilbur Benavides DO [address] [place] [address] Scheduled Procedures Name Priority Associated Diagnoses Date/Ti me PERCUTANEOUS CLOSURE LEFT ATRIAL APPENDAGE IMPLANT Paroxysmal atrial fibrillation (HCC) 07/31/2023 6:00 AM EST Health Maintenance Due Date Last Done Comments CKD PHOS USE SMARTSET 72739 05/01/2023 09/0 02/2022, 04/03/2022, 12/05/2020, Additional history exists HbA1c 08/23/2023 02/21/2023, 01/0 10/2022, 04/03/2022, Additional history exists TSH 09/24/2023 09/24/2022, 01/0 10/2022, 02/12/2022, Additional history exists Diabetic Foot Exam 10/01/2023 10/01/2022, 0 10/26/2021, 12/05/2020, Additional history exists GFR 11/07/2023 05/09/2023, 080 03/2023, 03/14/2023, Additional history exists Albumin/Creatinine Ratio 02/22/20242 023, 05/01/2022, 10/26/2021, Additional history exists CKD HGB USE SMARTSET 12048 04/11/202404/11, 04/11/2023, 04/01/2023, Additional history exists Depression Screening 04/18/2024 04/18/2023 DIABETES-EYE EXAM 05/22/2024 05/22/2023, , 05/22/2023, Additional history exists DXA Scan 05/07/2025 05/07/2021, 12/24, 04/12/2013, Additional history exists COLONOSCOPY-EVERY 4 YRS AGES 18-100 03/11/2026 03/11/2022, 11/10/2020, 11/10/2020, Additional history exists DTaP,Tdap,and Td Vaccines (3 - Td or Tdap) 12/29/2028 12/29/2018, 07/15/2009 Pneumococcal Vaccine: 65+ Years Completed 09/21/2015, 05/25/2012, 07/25/2007 Zoster Vaccines Completed 07/16/2019, 04/26, 03/25/2007 COVID-19 Vaccine Completed 09/10/2022, , 06/23/2021, Additional history exists Influenza Vaccine (FLU shot) Completed , 05/15/2022, [...] this encounter Medical Devices Implanted Type Area Hadoop Application Developer Device Identifier Shelf Expiration Date Model / Serial / Lot Cath Thermodilution 6fr - [id number] Implanted:Qty: 1 on 01/24/2023 by Wilbur Rivera MD at [facility] [employer] [id number] 10/15/2024 [id number] / / [id number] Mirtaclip G4 - [id number] Implanted:Qty: 1 on 03/10/2023 at [facility] [employer] 11/19/2023 [id number] / / [id number] documented as of this encounter Visit Diagnoses Diagnosis Paroxysmal atrial fibrillation (HCC)- Primary Atrial fibrillation Paroxysmal atrial fibrillation (HCC)- Primary Atrial fibrillation Type 2 diabetes mellitus with hemoglobin A1c goal of less than 7.0% (HCC) Type 2 diabetes mellitus with stage 3b chronic kidney disease, without long-term current use of insulin (HCC) Chronic diastolic CHF (congestive heart failure) (HCC) Chronic diastolic heart failure Secondary hyperparathyroidism, renal (HCC) Secondary hyperparathyroidism (of renal origin) 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 claudication Spinal stenosis, lumbar region, without neurogenic claudication Acquired hypothyroidism Unspecified hypothyroidism Iron deficiency anemia, unspecified iron deficiency anemia type Tremor Abnormal involuntary movements Obstructive sleep apnea of adult Obstructive sleep apnea (adult) (pediatric) Type 2 diabetes mellitus with polyneuropathy (HCC) Type II or unspecified type diabetes mellitus with neurological manifestations, not stated as uncontrolled Current moderate episode of major depressive disorder without prior episode (HCC) Moderate persistent asthma without complication Unspecified asthma Cardiac pacemaker in situ S/P mitral valve clip implantation Atherosclerosis of [place] coronary artery of [place] heart without angina pectoris Severe tricuspid regurgitation Diseases of tricuspid valve History of endometrial cancer Personal history of malignant neoplasm of other parts of uterus Paroxysmal atrial fibrillation (HCC) Atrial fibrillation documented in this encounter Advance Directives Documents on File Type Date Recorded Patient Manager Chemical Expl anation Advance Directives and Living Will 11/29/2022 ADVANCE DIRECTIVE / LIVING WILL Power of Sales Development Manager 11/29/2022 POWER OF A TTORNEY Advance Directives and Living Will 10/24/2014 ADVANCE DIRECTIVE / LIVING WILL Power of Sales Development Manager 10/24/2014 POWER OF A TTORNEY Latest [...] Agen t (per Health Care Power of Sales Development Manager document) Care Teams Medical Management Trainer Relationship Specialty Start Date End Date Florentin Calvo, [address] [place] [address] PCP - General Internal Medicine 03/24/13 documented as of this encounter
--- OUTSIDE RECORDS SUMMARY | 2023-08-14 23:36 | External Medical Summary | Summary of Care ---
Author Name Unknown Organization [facility] Address [address] [place] [address] Phone [phone] Care Team Providers Care Solar Installation Supervisor Name Role Phone Florentin Calvo DO Primary Care Provider [phone] Reason for Visit * Reason Comments Dosage Adjustment In Person (Anticoag Cl inic) Medication Management Encounter Details Date Type Department Care Team Description 05/23/2023 Pharmacy Family Practice [address] [address] [place], Pharmacist [address] [address] Encounter for long-term (current) use of medications* Allergies Active Allergy Reactions Severity Noted Date Comments Azithromycin Other (Please comment) 12/04/2021 QTC prolongation at [facility] Celecoxib Hives,Rash High 03/24/2013 Other reaction(s): Rash/Hives/Itching. [...] Dispensed Refills Start Date End Date Status PayTangoTouch Verio w/Device KitIndications:Typ e 2 diabetes mellitus with hemoglobin A1c goal of less than 7.0% ([facility]) Use up to 1 times a day. [...] Oral Tablet (Lipitor)Indicatio ns:PVD (peripheral vascular disease) ([facility]),Type 2 diabetes mellitus with stage 3a chronic kidney disease and hypertension ([facility]) TAKE ONE TABLET BY MOUTH EVERY DAY DIRECTED 100 Tablet 3 03/31/2023 Active Ipratropium [place] 0.03 % Nasal Solution (Atrovent)Indicati ons:Chronic rhinitis [...] bedtime. 90 Tablet 3 05/16/2023 Active Tiotropium [place]-Olodaterol 2.5-2.5 MCG/ACT Inhalation Aerosol Solution (Stiolto Respimat) [...] mitral valve clip implantation 03/06 Atherosclerosis of [place] coronary arter y without angina pectoris 02/13/2023 Last Assessment & Plan: Continue statin, sotalol. 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 Prescription insurance information: JEANETTE Stacy Do you have any other prescription coverage: Yes, PACE Preferred pharmacy: [facility] and Melissa [x] Problem list reviewed [x] Allergies reviewed and updated if needed [x] Drug interaction check completed [x] HEDIS list addressed Immunizations: Up to Date Medication Organization/Adherence: Has home care nurse or caregiver: no Patient uses a pill box? Yes, refill(s) completed by children When you are at home, how often do you miss doses of medications? Never How difficult is it for you to pay for your medications? Not difficult at all How often do you experience side effects from your medications? Never Labs/Vitals/Risk Scores: The ASCVD Risk score (Corder DK, et al., 2019) failed to calculate for the following reasons: The 2019 ASCVD risk score is only valid for ages 40 to 79 The patient has a prior NC or stroke diagnosis BP Readings from Last 3 Encounters: 05/09/23 131/58 04/18/23 106/60 04/16/23 126/70 Recent Labs Units 02/21/23 1231 08/27/22 1609 04/03/22 0959 HEMOGLOBIN A1C - MEL[place]ON % 6.5* 6.2* 5.8* Recent Labs Units 05/09/23 1312 04/01/23 1429 03/14/23 1053 ESTIMATED GLOMERULAR FILTRATION RATE - [facility] mL/min 31* 35* 25* Serum creatinine: 1.6 mg/dL (H) 05/09/23 1312 Estimated creatinine clearance: 27 mL/min (A) Assessment & Plan: Medication discrepancies identified: patient taking Stiolto instead of Advair - reports Dr. Sibley switched it. - Per records Veronique De switched patient from Stiolto back to Advair in November 2022 due to patient difficulty with device. Patient reports that she has been using the stiolto just fine and reports liking it better than the Advair. Pended to PCP. Dose/frequency of medications appropriate for current renal function? yes Other medication problems identified: blood sugar meter not working. Patient education provided: Patient to clinic for BG meter instruction. Ensured date and time were set correctly and performed successful control test. Taught navigation of BG meter menu, buttons, and reviewing BG results. Demonstrated proper BG fingerstick technique including insertion of the test strip into the meter, proper cleaning of the site, ideal locations on the finger to test, how to use lancing device, and draw blood sample into the test strip. Reviewed proper disposal of supplies, including sharps. Also reviewed best times to test BG and counseled on the importance of BG readings in the evaluation of BG trends and adjustment of medications. The proper method of use, as well as anticipated side effects, of this inhaler are discussed and demonstrated to the patient. Patient demonstrates adequate delivery. Referral pended for follow up management of: N/A Summary- Changes & Recommendations: Med rec completed with patient. Repeat med rec visit in 1 year Veronique Nye RPh Clinical Pharmacist - Chip Bin Operator Medication Therapy Management Clinic 05/23/2023, 3:24 PM documented in this encounter Plan of Treatment Upcoming Encounters Date Type Specialty Care Team Description 05/28/2023 Home Visit [facility] Mónica Angeles RN [address] [facility] [place] [address] 06/17/2023 Office Visit Cardiology Stephen Hewitt, DO [address] [place] [address] 06/26/2023 Office Visit Otolaryngology Cheri Castillo PA-C [address] [place] [address] 07/11/2023 Procedure Only Endoscopy Jana Vieira, DO [address] [place] [address] 07/31/2023 Hospital Encounter Cardiac Manufacturing Assembler Wilbur Rivera MD [address] [place] [address] 07/31/2023 Surgery Cardiac Manufacturing Assembler Wilbur Rivera MD [address] [place] [address] PERCUTANEOUS CLOSURE LEFT ATRIAL APPENDAGE IMPLANT 07/31/2023 Office Visit Cardiology Michelle, Cardiac Recovery [facility] [address] [place], [place] [phone] 08/22/2023 Office Visit Family Medicine Florentin Calvo, DO [address] [place] [address] 09/25/2023 Office Visit Nephrology Rosario Green MD [address] [place] [address] 10/14/2023 Office Visit Hematology Oncology Nereyda Metz CRNP [address] [place] [address] 10/24/2023 Office Visit Gynecology Oncology Chris Peng PA-C [address] [place], [place] [phone] 06/03/2024 Office Visit Ophthalmology Wilbur Benavides, DO [address] [facility] [place] [address] Scheduled Procedures Name Priority Associated Diagnoses Date/Ti me PERCUTANEOUS CLOSURE LEFT ATRIAL APPENDAGE IMPLANT Paroxysmal atrial fibrillation (HCC) 07/31/2023 6:00 AM EST Health Maintenance Due Date Last Done Comments CKD PHOS USE SMARTSET 13720 05/01/2023 09/0 02/2022, 04/03/2022, 12/05/2020, Additional history exists HbA1c 08/23/2023 02/21/2023, 01/0 10/2022, 04/03/2022, Additional history exists TSH 09/24/2023 09/24/2022, 01/0 10/2022, 02/12/2022, Additional history exists Diabetic Foot Exam 10/01/2023 10/01/2022, 0 10/26/2021, 12/05/2020, Additional history exists GFR 11/07/2023 05/09/2023, 08/0 03/2023, 03/14/2023, Additional history exists Albumin/Creatinine Ratio 02/22/2024 023, 05/01/2022, 10/26/2021, Additional history exists CKD HGB USE SMARTSET 70339 04/11/202404/11, 04/11/2023, 04/01/2023, Additional history exists Depression [...] encounter Medical Devices Implanted Type Area Plant Operations Vice President Device Identifier Shelf Expiration Date Model / Serial / Lot Cath Thermodilution 6fr - [id number] Implanted:Qty: 1 on 01/24/2023 by Wilbur Rivera MD at [facility] [place] [employer] TERE [id number] 10/15/2024 [id number] / / [id number] Mirtaclip G4 - [id number] Implanted:Qty: 1 on 03/10/2023 at [facility] [employer]leven 11/19/2023 [id number] / / [id number] documented as of this encounter Visit Diagnoses Diagnosis Paroxysmal atrial fibrillation (HCC)- Primary Atrial fibrillation Encounter for long-term (current) use of medications- Primary Encounter for long-term (current) use of other medications Paroxysmal atrial fibrillation (HCC) Atrial fibrillation documented in this encounter Advance Directives Documents on File Type Date Recorded Patient Citrix Administrator Expl anation Advance Directives and Living Will 11/29/2022 ADVANCE DIRECTIVE / LIVING WILL Power of Pasteurizer 11/29/2022 POWER OF A TTORNEY Advance Directives and Living Will 10/24/2014 ADVANCE DIRECTIVE / LIVING WILL Power of Pasteurizer 10/24/2014 POWER OF A TTORNEY Latest Code [...] Agents on File Name Relationship Healthcare Agent [facility] Communication [facility] Adult Child Health Care Agen t (per Health Care Power of Pasteurizer document) Care Teams Solar Installation Supervisor Relationship Specialty Start Date End Date Florentin Calvo, DO [address] [place] [address] PCP - General Internal Medicine 03/24/13 documented as of this encounter
--- OUTSIDE RECORDS SUMMARY | 2023-08-14 23:36 | External Medical Summary | Summary of Care ---
Author Name Unknown Organization [facility] Address [address] [place] [address] Phone [phone] Care Team Providers Care Vba Developer Name Role Phone Florentin Calvo DO Primary Care Provider [phone] Reason for Visit * Reason Onset Date Comments [facility]: Maintenance 05/28/2023 Encounter Details Date Type Department Care Team Description 05/28/2023 Scheduled Telephone [facility], [facility] [address] [place] [address] [facility] Nurse Triage [address] [place] [address] Allergies Active Allergy Reactions Severity Noted Date Comments Azithromycin Other (Please comment) 12/04/2021 QTC prolongation at [facility] Celecoxib Hives,Rash High 03/24/2013 Other reaction(s): Rash/Hives/Itching. [...] as of this encounter (statuses as of 05/28/2023) Medications Medication Sig Dispensed Refills Start Date End Date Status ExavioTouch Verio w/Device KitIndications:Type 2 diabetes mellitus with hemoglobin A1c goal of less than 7.0% ([facility]) Use up to 1 times a day. [...] Oral Tablet (Lipitor)Indication s:PVD (peripheral vascular disease) ([facility]),Type 2 diabetes mellitus with stage 3a chronic kidney disease and hypertension ([facility]) TAKE ONE TABLET BY MOUTH EVERY DAY DIRECTED 100 Tablet 3 03/31/2023 Active Ipratropium [place] 0.03 % Nasal Solution (Atrovent)Indicatio ns:Chronic rhinitis [...] bedtime. 90 Tablet 3 05/16/2023 Active Tiotropium [place]-Olodaterol 2.5-2.5 MCG/ACT Inhalation Aerosol Solution (Stiolto Respimat) [...] as of this encounter (statuses as of 05/28/2023) Active Problems Problem Noted Date S/P mitral valve clip implantation 03/06 Atherosclerosis of [place] coronary arter y without angina pectoris 02/13/2023 Last Assessment & Plan: Continue statin, sotalol. 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 No-[place] can hear w/ hearing aid 03/07/2023 Are [...] encounter Miscellaneous Notes * Telephone Encounter - Jes Ortiz RN - 05/28/2023 10:10 AM EDT [facility] Picker Box Operator Monthly Visit Date: 05/28/2023 Time: 10:10 AM Name: Inga Barakat : 1940 Spoke with Inga, introduced myself, agreed to telephonic assessment, aware that call is being recorded for training purposes Problems/Symptoms: HPI: Inga reports doing good today, has home PT that is really helping with her strength and endurance. Uses a walker at all times. Denies any open areas/rashes, good appetite and sleeps well at night. Weight stable at 158lbs, BS range from 98-128 Constitutional: no weight loss, no weakness, and no fatigue, feels she is getting stronger everydaywith PT Resp: no cough, no sputum, no wheezing, and + dyspnea with exertion Cardiac: no chest pain, no orthopnea, no palpitations, + dyspnea on exertion: , + PND due to allergies, and + trace edema to below bilateral ankles that comes and goes GI: no pain, no heartburn, no constipation, no blood/melena, no nausea, + diarrhea at times, LBM was this morning, urinating wnl's Musculoskeletal: no swelling and + back pain when she stands too long, it radiates down her legs, oliva not really take anything Neuro: no weakness, no falling, no numbness or tingling, and + memory loss at times Medication Reconciliation: Does patient take medications as ordered: Yes, family sets up weekly pill planners No refills needed at this time Monthly HV follow up scheduled Jes Ortiz RN 05/28/2023 documented in this encounter Plan of Treatment Upcoming Encounters Date Type Specialty Care Team Description 06/17/2023 Office Visit Cardiology Stephen Hewitt, DO [address] [place] [address] 06/26/2023 Office Visit Otolaryngology Cheri Castillo PA-C [address] [place] [address] 07/02/2023 Home Visit [facility] Michelle Hurt, RN [address] [place] [address] 07/11/2023 Procedure Only Endoscopy Jana Vieira, DO [address] [place] [address] 07/31/2023 Hospital Encounter Cardiac Oracle Bpm Consultant Wilbur Rivera MD [address] [place] [address] 07/31/2023 Surgery Cardiac Oracle Bpm Consultant Wilbur Rivera MD [address] [place] [address] PERCUTANEOUS CLOSURE LEFT ATRIAL APPENDAGE IMPLANT 07/31/2023 Office Visit Cardiology [facility] Cardiac [facility] [address] [place], [place] [phone] 08/22/2023 Office Visit Family Medicine Florentin Calvo, DO [address] [place] [address] 09/25/2023 Office Visit Nephrology Rosario Green MD [address] [place] [address] 10/14/2023 Office Visit Hematology Oncology Nereyda Metz CRNP [address] [facility] [place] [address] 10/24/2023 Office Visit Gynecology Oncology Chris Peng PA-C [address] [place], [place] [phone] 06/03/2024 Office Visit Ophthalmology Wilbur Benavides, DO [address] [facility] [place] [address] Scheduled Procedures Name Priority Associated Diagnoses Date/Ti me PERCUTANEOUS CLOSURE LEFT ATRIAL APPENDAGE IMPLANT Paroxysmal atrial fibrillation (HCC) 07/31/2023 6:00 AM EST Health Maintenance Due Date Last Done Comments COVID-19 Vaccine ( season) 2023 09/10/2022, 04/09/2022, 06/23/2021, Additional history exists CKD PHOS USE SMARTSET 78018 05/01/2023 09/0 02/2022, 04/03/2022, 12/05/2020, Additional history exists HbA1c 08/23/2023 02/21/2023, 01/0 10/2022, 04/03/2022, Additional history exists TSH 09/24/2023 09/24/2022, 01/0 10/2022, 02/12/2022, Additional history exists Diabetic Foot Exam 10/01/2023 10/01/2022, 0 10/26/2021, 12/05/2020, Additional history exists GFR 11/07/2023 05/09/2023, 08/0 03/2023, 03/14/2023, Additional history exists Albumin/Creatinine Ratio 02/22/20242 023, 05/01/2022, 10/26/2021, Additional history exists CKD HGB USE SMARTSET 21451 04/11/202404/11, 04/11/2023, 04/01/2023, Additional history exists DIABETES-EYE [...] this encounter Medical Devices Implanted Type Area Cv/Cvn Cv Tsc System Operator Device Identifier Shelf Expiration Date Model / Serial / Lot Cath Thermodilution 6fr - [id number] Implanted:Qty: 1 on 01/24/2023 by Wilbur Rivera MD at [facility] [employer] [id number] 10/15/2024 [id number] / / [id number] Mirtaclip G4 - [id number] Implanted:Qty: 1 on 03/10/2023 at [facility] LiquidM 11/19/2023 [id number] / / [id number] documented as of this encounter Advance Directives Documents on File Type Date Recorded 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
--- OUTSIDE RECORDS SUMMARY | 2023-08-14 23:36 | External Medical Summary | Summary of Care ---
Author Name Unknown Organization [facility] Address [address] [place] [address] Phone [phone] Care Team Providers Care Buffet Manager Name Role Phone Florentin Calvo DO Primary Care Provider [phone] Reason for Visit * Reason Onset Date Comments [facility]: Maintenance 05/28/2023 Encounter Details Date Type Department Care Team Description 05/28/2023 Scheduled Telephone [facility], [facility] [address] [place] [address] [facility] Nurse Triage [address] [place] [address] Allergies Active Allergy Reactions Severity Noted Date Comments Azithromycin Other (Please comment) 12/04/2021 QTC prolongation at [facility] Celecoxib Hives,Rash High 03/24/2013 Other reaction(s): Rash/Hives/Itching. [...] Dispensed Refills Start Date End Date Status IQumulusTouch Verio w/Device KitIndications:Type 2 diabetes mellitus with hemoglobin A1c goal of less than 7.0% ([facility]) Use up to 1 times [...] (Lipitor)Indication s:PVD (peripheral vascular disease) ([facility]),Type 2 diabetes mellitus with stage 3a chronic kidney disease and hypertension ([facility]) TAKE ONE TABLET BY MOUTH EVERY DAY DIRECTED 100 Tablet 3 03/31/2023 Active Ipratropium [place] 0.03 % Nasal Solution (Atrovent)Indicatio ns:Chronic rhinitis [...] bedtime. 90 Tablet 3 05/16/2023 Active Tiotropium [place]-Olodaterol 2.5-2.5 MCG/ACT Inhalation Aerosol Solution (Stiolto Respimat) [...] mitral valve clip implantation 03/06 Atherosclerosis of [place] coronary arter y without angina pectoris 02/13/2023 Last Assessment & Plan: Continue statin, sotalol. 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 No-[place] can hear w/ hearing aid 03/07/2023 Are [...] 05/28/2023 10:10 AM EDT [facility] Interventional Pain Physician Monthly Visit Date: 05/28/2023 Time: 10:10 AM [...] Stephen Hewitt, DO [address] [place] [address] 06/26/2023 Office Visit Otolaryngology Cheri Castillo PA-C [address] [place] [address] 07/02/2023 Home Visit [facility] Michelle Hurt, RN [address] [place] [address] 07/11/2023 Procedure Only Endoscopy Jana Vieira, DO [address] [place] [address] 07/31/2023 Hospital Encounter Cardiac Relay Operator Wilbur Rivera MD [address] [place] [address] 07/31/2023 Surgery Cardiac Relay Operator Wilbur Rivera MD [address] [place] [address] PERCUTANEOUS CLOSURE LEFT ATRIAL APPENDAGE IMPLANT 07/31/2023 Office Visit Cardiology [facility] Cardiac [facility] [address] [place], [place] [phone] 08/22/2023 Office Visit Family Medicine Florentin Calvo, DO [address] [facility] [place] [address] 09/25/2023 Office Visit Nephrology Rosario Green MD [address] [facility] [place] [address] 10/14/2023 Office Visit Hematology Oncology Nereyda Metz CRNP [address] [facility] [place] [address] 10/24/2023 Office Visit Gynecology Oncology Chris Peng PA-C [address] [place], [place] [phone] 06/03/2024 Office Visit Ophthalmology Wilbur Benavides, DO [address] [facility] [place] [address] Scheduled Procedures Name Priority Associated Diagnoses Date/Ti me PERCUTANEOUS CLOSURE LEFT ATRIAL APPENDAGE IMPLANT Paroxysmal atrial fibrillation (HCC) 07/31/2023 6:00 AM EST Health Maintenance Due Date Last Done Comments COVID-19 Vaccine ( season) 2023 09/10/2022, 04/09/2022, 06/23/2021, Additional history exists CKD PHOS USE SMARTSET 98280 05/01/2023 09/0 02/2022, 04/03/2022, 12/05/2020, Additional history exists HbA1c 08/23/2023 02/21/2023, 01/0 10/2022, 04/03/2022, Additional history exists TSH 09/24/2023 09/24/2022, 01/0 10/2022, 02/12/2022, Additional history exists Diabetic Foot Exam 10/01/2023 10/01/2022, 0 10/26/2021, 12/05/2020, Additional history exists GFR 11/07/2023 05/09/2023, 08/0 03/2023, 03/14/2023, Additional history exists Albumin/Creatinine Ratio 02/22/20242 023, 05/01/2022, 10/26/2021, Additional history exists CKD HGB USE SMARTSET 22748 04/11/202404/11, 04/11/2023, 04/01/2023, Additional history exists DIABETES-EYE [...] this encounter Medical Devices Implanted Type Area Meal Attendant Device Identifier Shelf Expiration Date Model / Serial / Lot Cath Thermodilution 6fr - [id number] Implanted:Qty: 1 on 01/24/2023 by Wilbur Rivera MD at [facility] [employer] [id number] 10/15/2024 [id number] / / [id number] Mirtaclip G4 - [id number] Implanted:Qty: 1 on 03/10/2023 at [facility] [address] [employer]O 11/19/2023 [id number] / / [id number] documented as of this encounter Advance Directives Documents on File Type Date Recorded 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
--- OUTSIDE RECORDS SUMMARY | 2023-08-14 23:37 | External Medical Summary | Summary of Care ---
Author Name Unknown Organization [facility] Address [address] [place] [address] Phone [phone] Care Team Providers Care Motor Electrician Name Role Phone Florentin Calvo DO Primary Care Provider [phone] Reason for Visit * Reason Comments Outpatient Testing Encounter Details Date Type Department Care Team Description 05/09/2023 Laboratory Laboratory [facility] [address] [place] [address] [facility] [address] [place] [address] Arrived Allergies Active Allergy Reactions Severity Noted [...] as of this encounter (statuses as of 05/09/2023) Medications Medication Sig Dispensed Refills Start Date End Date Status TIKI.VN w/Device KitIndications:Type 2 diabetes mellitus with hemoglobin [...] for Wheezing. 15 g 12 06/13/2022 Active Fluticasone-Salmete rol 250-50 MCG/ACT Inhalation Aerosol Powder Breath Activated (Advair Diskus) Inhale 1 Puff by mouth in the morning and 1 Puff before bedtime. 60 Each 2 12/12/2022 Active OneTouch Verio In Vitro Strip (Glucose [...] DIRECTED 100 Tablet 3 03/31/2023 Active Ipratropium [place] 0.03 % Nasal Solution (Atrovent)Indicatio ns:Chronic rhinitis Administer 2 Sprays into nostril in the morning and 2 Sprays before bedtime. 90 mL 3 04/01/2023 Active Additional Information Patient not taking.Reported on 05/09/2023 Sotalol HCl 80 MG Oral Tablet (Betapace)Indicatio ns:Paroxysmal atrial fibrillation (HCC) Take 0.5 Tablets by mouth in the morning and 0.5 Tablets before bedtime. 300 Tablet 3 04/10/2023 Active Pantoprazole Sodium 40 MG Oral Tablet Delayed Release (Protonix) Take 1 Tablet by mouth in the morning and 1 Tablet in the evening. 200 Tablet 1 05/05/2023 Active Allopurinol 100 MG Oral Tablet (Zyloprim)Indicatio ns:Gout, arthropathy Take 2 Tablets by mouth at bedtime. 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 Last Assessment & Plan: Now just using [...] as of this encounter (statuses as of 05/09/2023) Resolved Problems Problem Noted Date Resolved Date [...] regurgitation 10/30/2022 03/07/2023 Overview: Scheduled for MVR 7/13 Last Assessment & Plan: Talk of possible [...] as of this encounter (statuses as of 05/09/2023) Immunizations Name Administration Dates Next Due COVID-19 mRNA, LNP-s, No Pre serve, 2-Dose Series (Moderna) 06/23/2021,10/25/2020,09/28/2020 COVID-19, LNP-s, No Preserve , Larry-sucrose, Ages 12+ (Pfizer) 04/09/2022 Covid-19, Mrna, Lnp-s, Pf, B ivalent, 30 Mcg, IM, 12 yrs and above (AdventEnna) 09/10/2022 HEP A - Hepatitis A (Adult > 18 yrs) 03/15/2004, 07/29/2003 Pneumococcal Conjugate Vacc, 13 Valent (Prevnar) 09/21/2015 Pneumococcal Polysaccharide PPV23 (Pneumovax) 05/25/2012,07/25/2007 Seasonal Influenza Virus Vac cine, Unspecified Formulation 05/22/2021 Seasonal Influenza, PF, 6 mo ns & Above, IM , (Flulaval) 04/28/2018,05/28/2017 Seasonal Influenza, Quadriva lent Hd (Fluzone [...] got money to buy more. Never true 04/18/2023 Within the past 12 months, t he food you bought just didn't last and you didn't have money to get more. Never true 04/18/2023 Sex Assigned at Date Recorded Female 12/17/2018 11:06 AM EDT Job Start Date Occupation Industry Not on file Not on file Not on file documented as of this encounter Functional Status Functional Status Response Date of Assess ment Are you deaf or do you have serious difficulty hearing? No-[place] can hear w/ hearing aid 03/07/2023 [...] Encounters Date Type Specialty Care Team Description 05/14/2023 Cardiac Studies Cardiac Studies 05/20/2023 Appointment Radiology 05/22/2023 Office Visit Ophthalmology Wilbur Benavides, DO [address] [place] [address] 05/23/2023 Office Visit Family Medicine Florentin Calvo, DO [address] [place] [address] 05/28/2023 Home Visit [facility] Mónica Angeles RN [address] [place] [address] 06/12/2023 Hospital Encounter Cardiac Plastics Fabricator Or Welder Wilbur Rivera MD [address], [place] [phone] 06/12/2023 Surgery Cardiac Plastics Fabricator Or Welder Wilbur Rivera MD [address] [place] [address] PERCUTANEOUS CLOSURE LEFT ATRIAL APPENDAGE IMPLANT 06/12/2023 Office Visit Cardiology Michelle Cardiac [facility] [address] [place] [address] 06/17/2023 Office Visit Cardiology Stephen Hewitt, [address] [place] [address] 06/26/2023 Office Visit Otolaryngology Cheri Castillo PA-C [address] [place] [address] 07/11/2023 Procedure Only Endoscopy Jana Vieira, DO [address] [place] [address] 09/25/2023 Office Visit Nephrology Rosario Green MD [address] [place] [address] 10/14/2023 Office Visit Hematology Oncology Nereyda Metz CRNP [address] [place], [place] [phone] 10/24/2023 Office Visit Gynecology Oncology Chris Peng PA-C [address] [place] [address] Scheduled Procedures Name Priority Associated Diagnoses Date/Ti me PERCUTANEOUS CLOSURE LEFT ATRIAL APPENDAGE IMPLANT Paroxysmal atrial fibrillation (HCC) 06/12/2023 12:00 PM EDT Health Maintenance Due Date Last Done Comments DIABETES-EYE EXAM 04/11/2023 04/11/2022, , 04/11/2022, Additional history exists Influenza Vaccine (FLU shot) (#1) 2023 05/15/2022, 05/22/2021, 04/19/2020, Additional history exists CKD PHOS USE SMARTSET 69736 05/01/2023 09/0 02/2022, 04/03/2022, 12/05/2020, Additional history exists HbA1c 08/23/2023 02/21/2023, 01/0 10/2022, 04/03/2022, Additional history exists TSH 09/24/2023 09/24/2022, 01/0 10/2022, 02/12/2022, Additional history exists Diabetic Foot Exam 10/01/2023 10/01/2022, 0 10/26/2021, 12/05/2020, Additional history exists GFR 10/02/2023 05/09/2023, 080 03/2023, 03/14/2023, Additional history exists Albumin/Creatinine Ratio 02/22/202402/21/2 023, 05/01/2022, 10/26/2021, Additional history exists CKD HGB USE SMARTSET 45232 04/11/202404/11, 04/11/2023, 04/01/2023, Additional history exists Depression Screening 04/18/2024 04/18/2023 DXA Scan 05/07/2025 05/07/2021, 12/24, 04/12/2013, Additional history exists COLONOSCOPY-EVERY 4 YRS AGES 18-100 03/11/2026 03/11/2022, 11/10/2020, 11/10/2020, Additional history exists DTaP,Tdap,and Td Vaccines (3 - Td or Tdap) 12/29/2028 12/29/2018, 07/15/2009 Pneumococcal Vaccine: 65+ Years Completed 09/21/2015, 05/25/2012, 07/25/2007 Zoster Vaccines Completed 07/16/2019, 04/26, 03/25/2007 COVID-19 Vaccine Completed 09/10/2022, , 06/23/2021, Additional history exists GARDASIL-HPV IMMUNIZATION SERIES Aged Out No longer eligible based on patient's age to complete this topic Hepatitis B Aged Out No longer eligi ble based on patient's age to complete this topic MENINGOCOCCAL (MENACTRA/MENVEO) Aged Out No longer eligible based on patient's age to complete this topic documented as of this encounter Medical Devices Implanted Type Area Document Control Coordinator Device Identifier Shelf Expiration Date Model / Serial / Lot Cath Thermodilution 6fr - [id number] Implanted:Qty: 1 on 01/24/2023 by Wilbur Rivera MD at [facility] [employer] [id number] 10/15/2024 [id number] / / [id number] Mirtaclip G4 - [id number] Implanted:Qty: 1 on 03/10/2023 at [facility] [employer] 11/19/2023 [id number] / / [id number] documented as of this encounter Advance Directives Documents on File Type Date Recorded Patient Revit Drafter Expl anation Advance Directives and Living Will 11/29/2022 ADVANCE DIRECTIVE / LIVING WILL Power of Upper And Bottom Lacer Hand 11/29/2022 POWER OF A TTORNEY Advance Directives and Living Will 10/24/2014 ADVANCE DIRECTIVE / LIVING WILL Power of Upper And Bottom Lacer Hand 10/24/2014 POWER OF A TTORNEY Latest Code [...] Agents on File Name Relationship Healthcare Agent [facility] Communication [facility] Adult Child Health Care Frieda t (per Health Care Power of Upper And Bottom Lacer Hand document) Care Teams Motor Electrician Relationship Specialty Start Date End Date Florentin Calvo, DO [address] [place] [address] PCP - General Internal Medicine 03/24/13 documented as of this encounter
--- OUTSIDE RECORDS SUMMARY | 2023-08-14 23:37 | External Medical Summary | Summary of Care ---
Author Name Unknown Organization [facility] Address [address] [place] [address] Phone [phone] Care Team Providers Care Biofuels Product Manager Name Role Phone Florentin Calvo DO Primary Care Provider [phone] Reason for Referral * Precert (Within 10 days (routine)) - Pending Review Specialty Diagnoses / Procedures Referred By Contac t Referred To Contact Radiology Diagnoses Paroxysmal atrial fibrillation (HCC) Procedures CT CARDIAC EPS - RAD CT CARDIAC EPS [place] Jean-Baptiste CRNP [address] [place] [address] Referral ID Status Reason Start Date Expiration Date Visits Requested Visits Authorized [id number] Pending Review Precert 05/05/[phone] Reason for Visit * Precert (Within 10 days (routine)) - Pending Review Specialty Diagnoses / Procedures Referred By Contac t Referred To Contact Radiology Diagnoses Paroxysmal atrial fibrillation (HCC) Procedures CT CARDIAC EPS - RAD CT CARDIAC EPS [place] Jean-Baptiste CRNP [address] [place] [address] Referral ID Status Reason Start Date Expiration Date Visits Requested Visits Authorized [id number] Pending Review Precert 05/05/[phone] Encounter Details Date Type Department Care Team Description 05/20/2023 Hospital Encounter Radiology, [place] [address] [place] [address] Arrived Allergies Active Allergy Reactions Severity Noted [...] as of this encounter (statuses as of 05/21/2023) Medications Medication Sig Dispensed Refills Start Date End Date Status OneTouch Verio w/Device KitIndications:Type 2 diabetes mellitus with hemoglobin A1c goal of less than 7.0% ([facility]) Use up to 1 times a day. [...] (Lipitor)Indication s:PVD (peripheral vascular disease) ([facility]),Type 2 diabetes mellitus with stage 3a chronic kidney disease and hypertension (HCC) TAKE ONE TABLET BY MOUTH EVERY DAY DIRECTED 100 Tablet 3 03/31/2023 Active Ipratropium Prim 0.03 % Nasal Solution (Atrovent)Indicatio ns:Chronic rhinitis [...] at bedtime. 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 Longstanding persistent atrial fibrillation 05/04/202204/05/2022 Hypertension associated with stage 3b chronic kidney [...] as of this encounter (statuses as of 05/21/2023) Immunizations Name Administration Dates Next Due COVID-19 mRNA, LNP-s, No Pre serve, 2-Dose Series (Moderna) 06/23/2021,10/25/2020,09/28/2020 COVID-19, LNP-s, No Preserve , Larry-sucrose, Ages 12+ ([employer]) 04/09/2022 Covid-19, Mrna, Lnp-s, Pf, B ivalent, [...] or do you have serious difficulty hearing? No-[place] can hear w/ hearing aid 03/07/2023 Are [...] Encounters Date Type Specialty Care Team Description 05/22/2023 Office Visit Ophthalmology Wilbur Benavides, DO [address] [place] [address] 05/23/2023 Office Visit Family Medicine Florentin Calvo, DO [address] [place] [address] 05/28/2023 Home Visit [facility] Mónica Angeles RN [address] [place] [address] 06/17/2023 Office Visit Cardiology Stephen Hewitt DO [address] [place] [address] 06/26/2023 Office Visit Otolaryngology Cheri Castillo PA-C [address] [place] [address] 07/11/2023 Procedure Only Endoscopy Jana Vieira, DO [address] [place] [address] 07/31/2023 Hospital Encounter Cardiac Medicaid Eligibility Specialist Wilbur Rivera MD [address] [place] [address] 07/31/2023 Surgery Cardiac Medicaid Eligibility Specialist Wilbur Rivera MD [address] [place], [place] [phone] PERCUTANEOUS CLOSURE LEFT ATRIAL APPENDAGE IMPLANT 07/31/2023 Office Visit Cardiology [place], [facility] [address] [place] [address] 09/25/2023 Office Visit Nephrology GreenRosario alcantar MD [address] [place] [address] 10/14/2023 Office Visit Hematology Oncology Nereyda Metz CRNP [address] [place] [address] 10/24/2023 Office Visit Gynecology Oncology Chris Peng PA-C [address] [place], [place] [phone] Scheduled Procedures Name Priority Associated Diagnoses Date/Ti me PERCUTANEOUS CLOSURE LEFT ATRIAL APPENDAGE IMPLANT Paroxysmal atrial fibrillation (HCC) 07/31/2023 6:00 AM EST Health Maintenance Due Date Last Done Comments DIABETES-EYE EXAM 04/11/2023 04/11/2022, , 04/11/2022, Additional history exists CKD PHOS USE SMARTSET 46026 05/01/202302/2022, 04/03/2022, 12/05/2020, Additional history exists HbA1c 08/23/2023 02/21/2023, 10/2022, 04/03/2022, Additional history exists TSH 09/24/2023 09/24/2022, 01/0 10/2022, 02/12/2022, Additional history exists Diabetic Foot Exam 10/01/2023 10/01/2022, 0 10/26/2021, 12/05/2020, Additional history exists GFR 11/07/2023 05/09/2023, 08/0 03/2023, 03/14/2023, Additional history exists Albumin/Creatinine Ratio 02/22/2024 023, 05/01/2022, 10/26/2021, Additional history exists CKD HGB USE SMARTSET 07196 04/11/202404/11, 04/11/2023, 04/01/2023, Additional history exists Depression [...] this encounter Medical Devices Implanted Type Area Family Life Educator Device Identifier Shelf Expiration Date Model / Serial / Lot Cath Thermodilution 6fr - [id number] Implanted:Qty: 1 on 01/24/2023 by Wilbur Rivera MD [place] [facility] [employer] [id number] 10/15/2024 [id number] / / [id number] Mirtaclip G4 - [id number] Implanted:Qty: 1 on 03/10/2023 [place] [facility] [employer] 11/19/2023 [id number] / / [id number] documented as of this encounter Procedures Procedure Name Priority Date/Time Associated Diagnosis Comments CT CARDIAC EPS - RAD Routine 05/20/2023 12:38 PM EDT Paroxysmal atrial fibrillation (HCC) documented in this encounter Results * CT CARDIAC EPS - RAD (05/20/2023 12:38 PM EDT) Anatomical Region Laterality Modality Cardio, Chest, Body Computed Trae ography 05/20/2023 4:55 PM EDT Impressions 05/20/2023 4:53 PM EDT IMPRESSION 1. No left atrial mass or thrombus. 2. Left atrial appendage measurements for Watchman planning, as above. 3. Pulmonary vein anatomy as above. Narrative 05/20/2023 4:[address] CARDIAC EPS - RAD - 05/20/2023 12:38 pm HISTORY pre watchman, pulmonary vein anatomy COMPARISON None. TECHNIQUE ECG gated CTA of the chest with intravenous contrast: EPS protocol. Axial images were obtained during peak enhancement on the left atrium and pulmonary veins. Delayed images are obtained to exclude left atrial appendage thrombus. 3D volume rendered images were made at an independent workstation. FINDINGS In a double oblique plane parallel to the orifice of the left atrial appendage, at the level of the left circumflex origin, the left atrial appendage measures 28 x 23 mm for an area of 501 mm2, an average diameter of 25 mm, and a perimeter of 80 mm. Maximum perpendicular distance from the orifice to the appendage wall is 20 mm. Maximum curved distance to the tip of the left atrial appendage is 3.8 cm. Measurements were obtained at 36 % of the RR interval. The left atrium/left atrial appendage are dilated. There is no left atrial mass or thrombus. There are MitraClips in place. PULMONARY VEINS: On the right, there are two atrial ostia for the upper and lower lobe veins; the middle lobe vein joins the proximal upper lobe vein more than 1 cm from the ostium (R2b).On the left, there are two atrial ostia for the upper and lower lobe veins, respectively; ostia are by left atrial wall (L2a). [email or web address].ncbi.nlm.nih.gov/93193321/ OTHER CARDIOVASCULAR: Dual-chamber pacemaker has leads in the right atrium and interventricular septum.. There is a small simple-appearing pericardial effusion. There is moderate atherosclerotic calcification of the coronary arteries. Mixed plaque noted within the descending thoracic aorta. The main pulmonary artery is dilated measuring 33 mm. LUNGS: Mild emphysema in the field of view. Diffuse pulmonary vascular congestion without overt edema or pleural effusion. LYMPH NODES: No lymphadenopathy. UPPER ABDOMEN: Small right renal cyst partially imaged. MUSCULOSKELETAL: Bones appear demineralized. There are degenerative osseous changes in the spine. Procedure Note Ventura Lilly MD - 05/20/[address] CARDIAC EPS - RAD - 05/20/2023 12:38 pm HISTORY pre watchman, pulmonary vein anatomy COMPARISON None. TECHNIQUE ECG gated CTA of the chest with intravenous contrast: EPS protocol. Axial images were obtained during peak enhancement on the left atrium andpulmonary veins. Delayed images are obtained to exclude left atrialappendage thrombus. 3D volume rendered images were made at an independentworkstation. FINDINGS In a double oblique plane parallel to the orifice of the left atrialappendage, at the level of the left circumflex origin, the left atrialappendage measures 28 x 23 mm for an area of 501 mm2, an average diameterof 25 mm, and a perimeter of 80 mm. Maximum perpendicular distance fromthe orifice to the appendage wall is 20 mm. Maximum curved distance tothe tip of the left atrial appendage is 3.8 cm. Measurements wereobtained at 36 % of the RR interval. The left atrium/left atrialappendage are dilated. There is no left atrial mass or thrombus. Thereare MitraClips in place. PULMONARY VEINS: On the right, there are two atrial ostia for the upperand lower lobe veins; the middle lobe vein joins the proximal upper lobevein more than 1 cm from the ostium (R2b).On the left, there are twoatrial ostia for the upper and lower lobe veins, respectively; ostia areseparated by left atrial wall (L2a).Https://pubmed.ncbi.nlm.nih.gov/74990447/ OTHER CARDIOVASCULAR: Dual-chamber pacemaker has leads in the right atriumand interventricular septum.. There is a small simple-appearingpericardial effusion. There is moderate atherosclerotic calcification ofthe coronary arteries. Mixed plaque noted within the descending thoracicaorta. The main pulmonary artery is dilated measuring 33 mm. LUNGS: Mild emphysema in the field of view. Diffuse pulmonary vascularcongestion without overt edema or pleural effusion. LYMPH NODES: No lymphadenopathy. UPPER ABDOMEN: Small right renal cyst partially imaged. MUSCULOSKELETAL: Bones appear demineralized. There are degenerativeosseous changes in the spine. IMPRESSION IMPRESSION 1. No left atrial mass or thrombus. 2. Left atrial appendage measurements for Watchman planning, as above. 3. Pulmonary vein anatomy as above. [place] MERCADO RAD CT documented in this encounter Visit Diagnoses Diagnosis Paroxysmal atrial fibrillation (HCC)- Primary Atrial fibrillation Paroxysmal atrial fibrillation (HCC) Atrial fibrillation Paroxysmal atrial fibrillation (HCC) Atrial fibrillation documented in this encounter Administered Medications Inactive Administered Medications - up to 3 most recent administrations Medication Order MAR Action Action Date Dose Rate Site Ioversol (Optiray 350) 74 % inj 100 mL 100 mL, Intravenous, ONCE, On Fri05/20/23 at 1241, For 1 dose, Radiology Medication Routing (Non-IR) Given 05/20/2023 12:41 PM EDT 100 mL documented in this encounter Advance Directives Documents on File Type Date Recorded Patient Public Message Service Supervisor Expl anation Advance Directives and Living Will 11/29/2022 ADVANCE DIRECTIVE / LIVING WILL Power of Drawer In Hand 11/29/2022 POWER OF A TTORNEY Advance Directives and Living Will 10/24/2014 ADVANCE DIRECTIVE / LIVING WILL Power of Drawer In Hand 10/24/2014 POWER OF A TTORNEY Latest [...] Agents on File Name Relationship [facility] (per Health Care Power of Drawer In Hand document) Care Teams Biofuels Product Manager Relationship Specialty Start Date End Date Florentin Calvo, DO [address] [place] [address] PCP - General Internal Medicine 03/24/13 documented as of this encounter
--- OUTSIDE RECORDS SUMMARY | 2023-08-14 23:37 | External Medical Summary ---
Author Name Unknown Address Unknown Organization [id number]:LABORATORY [facility] [place] - [address] [place] [address] Laboratory Report Ordering Provider Test Date Status CJ LAWS 05/09/2023 13:12:59 Final Observation Date Value Abnormality Reference (Units ) Status Parathyrin.intact [Mass/volume] in Serum or Plasma 05/09/2023 13:12:59 72 Above high normal 15-65 (pg/mL) Final Performing Location LABORATORY [facility] [place] - [address] [place] [address]
--- OUTSIDE RECORDS SUMMARY | 2023-08-14 23:37 | External Medical Summary | Summary of Care ---
Author Name Unknown Organization [facility] Address [address] [place] [address] Phone [phone] Care Team Providers Care Social Scientist Name Role Phone Florentin Calvo DO Primary Care Provider [phone] Reason for Visit * Reason Onset Date Comments Med Request 05/14/2023 Encounter Details Date Type Department Care Team Description 05/14/2023 Telephone Family Practice [address] [place] [address] [address] [place] [address] Florentin Calvo DO [address] [place] [address] Med Request Allergies Active Allergy Reactions Severity Noted Date Comments Azithromycin Other (Please comment) 12/04/2021 QTC prolongation at [facility] Celecoxib Hives,Rash High 03/24/2013 Other reaction(s): Rash/Hives/Itching. [...] as of this encounter (statuses as of 05/14/2023) Medications Medication Sig Dispensed Refills Start Date End Date Status OneTouch Verio w/Device KitIndications:Type 2 diabetes mellitus with hemoglobin A1c goal of less than 7.0% ([facility]) Use up to 1 times a [...] Oral Tablet (Lipitor)Indication s:PVD (peripheral vascular disease) ([facility]),Type 2 diabetes mellitus with stage 3a chronic kidney disease and hypertension ([facility]) TAKE ONE TABLET BY MOUTH EVERY DAY DIRECTED 100 Tablet 3 03/31/2023 Active Ipratropium [place] 0.03 % Nasal Solution (Atrovent)Indicatio ns:Chronic rhinitis [...] as of this encounter (statuses as of 05/14/2023) Active Problems Problem Noted Date S/P mitral valve clip implantation 03/06 Atherosclerosis of [place] coronary arter y without angina pectoris 02/13/2023 Last Assessment & Plan: Continue statin, sotalol. 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 No-BIG SANDY can hear w/ hearing aid 03/07/2023 Are [...] encounter Miscellaneous Notes * Telephone Encounter - VERONICA Umanzor - 05/14/2023 11:52 AM EDT Pt called requesting vitamin B-12. Pt looked at her bottle and realized she's been buying it otc. Pt said she doesn't need a script and will go to pharmacy and get rx. Thanks, Betsey Connor Counterperson [facility] 05/14/2023,11:54 AM documented in this encounter Plan of Treatment Upcoming Encounters Date Type Specialty Care Team Description 05/20/2023 Appointment Radiology 05/22/2023 Office Visit Ophthalmology Wilbur Benavides, DO [address] [place] [address] 05/23/2023 Office Visit Family Medicine Floerntin Calvo, DO [address] [place] [address] 05/28/2023 Home Visit [facility] at Home Mónica [place], RN [address] [place] [address] 06/12/2023 Hospital Encounter Cardiac Public Service Administrator Wilbur Rivera MD [address] [place] [address] 06/12/2023 Surgery Cardiac Public Service Administrator Wilbur Rivera MD [address], [place] [phone] PERCUTANEOUS CLOSURE LEFT ATRIAL APPENDAGE IMPLANT 06/12/2023 Office Visit Cardiology Michelle, [facility]iac [facility] [address] [place], [place] [phone] 06/17/2023 Office Visit Cardiology Stephen Hewitt, DO [address] [place] [address] 06/26/2023 Office Visit Otolaryngology Cheri Castillo PA-C [address] [place] [address] 07/11/2023 Procedure Only Endoscopy Jana Vieira, DO [address] [place], [place] [address] 09/25/2023 Office Visit Nephrology Rosario Green MD [address] [place] [address] 10/14/2023 Office Visit Hematology Oncology Nereyda Metz CRNP [address] [place] [address] 10/24/2023 Office Visit Gynecology Oncology Chris Peng PA-C [address] [place] [address] Scheduled Procedures Name Priority Associated Diagnoses Date/Ti me PERCUTANEOUS CLOSURE LEFT ATRIAL APPENDAGE IMPLANT Paroxysmal atrial fibrillation (HCC) 06/12/2023 12:00 PM EDT Health Maintenance Due Date Last Done Comments DIABETES-EYE EXAM 04/11/2023 04/11/2022, , 04/11/2022, Additional history exists CKD PHOS USE SMARTSET 58126 05/01/202302/2022, 04/03/2022, 12/05/2020, Additional history exists HbA1c 08/23/2023 02/21/2023, 0 10/2022, 04/03/2022, Additional history exists TSH 09/24/2023 09/24/2022, 0 10/2022, 02/12/2022, Additional history exists Diabetic Foot Exam 10/01/2023 10/01/2022, 0 10/26/2021, 12/05/2020, Additional history exists GFR 11/07/2023 05/09/2023, 08/0 03/2023, 03/14/2023, Additional history exists Albumin/Creatinine Ratio 02/22/2024 023, 05/01/2022, 10/26/2021, Additional history exists CKD HGB USE SMARTSET 19163 04/11/202404/11, 04/11/2023, 04/01/2023, Additional history exists Depression [...] encounter Medical Devices Implanted Type Area Plant Control Operator Device Identifier Shelf Expiration Date Model / Serial / Lot Cath Thermodilution 6fr - [id number] Implanted:Qty: 1 on 01/24/2023 by Wilbur Rivera MD at [facility] YuanV [id number] 10/15/2024 [id number] / / [id number] Monishacldenise G4 - [id number] Implanted:Qty: 1 on 03/10/2023 at [facility] [employer] 11/19/2023 [id number] / / [id number] documented as of this encounter Advance Directives Documents on File Type Date Recorded Patient Bullet Slugs Inspector Expl anation Advance Directives and Living Will 11/29/2022 ADVANCE DIRECTIVE / LIVING WILL Power of Seed Laboratory Assistant 11/29/2022 POWER OF A TTORNEY Advance Directives and Living Will 10/24/2014 ADVANCE DIRECTIVE / LIVING WILL Power of Seed Laboratory Assistant 10/24/2014 POWER OF A TTORNEY Latest [...] Agen t (per Health Care Power of Seed Laboratory Assistant document) Care Teams Social Scientist Relationship Specialty Start Date End Date Florentin Calvo DO [address] [facility] [place] [address] PCP - General Internal Medicine 03/24/13 documented as of this encounter
--- OUTSIDE RECORDS SUMMARY | 2023-08-14 23:37 | External Medical Summary | Summary of Care ---
Author Name Unknown Organization [facility] Address [address] [place] [address] Phone [phone] Care Team Providers Care Sulfuric Acid Plant Supervisor Name Role Phone Florentin Calvo DO Primary Care Provider [phone] Reason for Visit * Reason Onset Date Comments Test Results 05/12/2023 Encounter Details Date Type Department Care Team Description 05/12/2023 Telephone NephrologyJerri 200 [facility] [place] [address] Rosario Green MD [address] [place] [address] Test Results Allergies Active Allergy Reactions Severity Noted Date Comments Azithromycin Other (Please comment) 12/04/2021 QTC prolongation at [facility] Celecoxib Hives,Rash High 03/24/2013 Other [...] as of this encounter (statuses as of 05/12/2023) Medications Medication Sig Dispensed Refills Start Date [...] DIRECTED 100 Tablet 3 03/31/2023 Active Ipratropium [place] 0.03 % Nasal Solution (Atrovent)Indicatio ns:Chronic rhinitis [...] as of this encounter (statuses as of 05/12/2023) Active Problems Problem Noted Date S/P mitral valve clip implantation 03/06 Atherosclerosis of [place] coronary arter y without angina pectoris 02/13/2023 Last Assessment & Plan: Continue statin, sotalol. 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 No-PICAYUNE can hear w/ hearing aid 03/07/2023 Are [...] encounter Miscellaneous Notes * Telephone Encounter - Regi Jacobs RN - 05/12/2023 10:04 AM EDT ----- Message from Rosario Green MD sent at 05/11/2023 5:25 PM EDT ----- Stable kidney function but a bit worse than March. >recommend if possible HOLD torsemide day before, day of , and ideally if possible day AFTER CT scan. If not possible to hold all 3 days, hold just day before and day of. >if that's not possible recommend d/w cardiology about getting small amount of IV fluid a few hours before/after CT scan > pls ensure pt saw above; some labs still pending and will update on those later. documented in this encounter Plan of Treatment Upcoming Encounters Date Type Specialty Care Team Description 05/14/2023 Cardiac Studies Cardiac Studies 05/20/2023 Appointment Radiology 05/22/2023 Office Visit Ophthalmology Wilbur Benavides DO [address] [place] [address] 05/23/2023 Office Visit Family Medicine Florentin Calvo DO [address] [place] [address] 05/28/2023 Home Visit [facility] at Home Mónica [place] RN [address] [place] [address] 06/12/2023 Hospital Encounter Cardiac Fluxer Wilbur Rivera MD [address] [place] [address] 06/12/2023 Surgery Cardiac Fluxer Wilbur Rivera MD [address] [place], [place] [phone] PERCUTANEOUS CLOSURE LEFT ATRIAL APPENDAGE IMPLANT 06/12/2023 Office Visit Cardiology [place], Cardiac Recovery S[place]a [address] [place] [address] 06/17/2023 Office Visit Cardiology Stephen Hewitt, DO [address] [place] [address] 06/26/2023 Office Visit Otolaryngology Cheri Castillo PANiharika [address] [place] [address] 07/11/2023 Procedure Only Endoscopy Jana Vieira, DO [address] [place] [address] 09/25/2023 Office Visit Nephrology Rosario Green MD [address] [place] [id number] 10/14/2023 Office Visit Hematology Oncology Nereyda Metz CRNP [address] [place] [address] 10/24/2023 Office Visit Gynecology Oncology Chris Peng PA-C [address] [place], [place] [phone] Scheduled Procedures Name Priority Associated Diagnoses Date/Ti ny PERCUTANEOUS CLOSURE LEFT ATRIAL APPENDAGE IMPLANT Paroxysmal atrial fibrillation (HCC) 06/12/2023 12:00 PM EDT Health Maintenance Due Date Last Done Comments DIABETES-EYE EXAM 04/11/2023 04/11/2022, , 04/11/2022, Additional history exists Influenza Vaccine (FLU shot) (#1) 2023 05/15/2022, 05/22/2021, 04/19/2020, Additional history exists CKD PHOS USE SMARTSET 44438 05/01/2023 09/0 02/2022, 04/03/2022, 12/05/2020, Additional history exists HbA1c 08/23/2023 02/21/2023, 0 10/2022, 04/03/2022, Additional history exists TSH 09/24/2023 09/24/2022, 01/0 10/2022, 02/12/2022, Additional history exists Diabetic Foot Exam 10/01/2023 10/01/2022, 0 10/26/2021, 12/05/2020, Additional history exists GFR 11/07/2023 05/09/2023, 080 03/2023, 03/14/2023, Additional history exists Albumin/Creatinine Ratio 02/22/2024 023, 05/01/2022, 10/26/2021, Additional history exists CKD HGB USE SMARTSET 34567 04/11/202404/11, 04/11/2023, 04/01/2023, Additional history exists Depression [...] this encounter Medical Devices Implanted Type Area Trademark Paralegal Device Identifier Shelf Expiration Date Model / Serial / Lot Cath Thermodilution 6fr - [id number] Implanted:Qty: 1 on 01/24/2023 by Wilbur Rivera MD at [facility] [employer] [id number] 10/15/2024 [id number] / / [id number] Mirtaclip G4 - [id number] Implanted:Qty: 1 on 03/10/2023 at [facility] [employer] 11/19/2023 [id number] / / [id number] documented as of this encounter Advance Directives Documents on File Type Date Recorded Patient Cardiology Technician Expl anation Advance Directives and Living Will 11/29/2022 ADVANCE DIRECTIVE / LIVING WILL Power of Revenue Cycle Manager 11/29/2022 POWER OF A TTORNEY Advance Directives and Living Will 10/24/2014 ADVANCE DIRECTIVE / LIVING WILL Power of Revenue Cycle Manager 10/24/2014 POWER OF A TTORNEY Latest [...] Agents on File Name Relationship Healthcare Agent Lorenzohi p Communication Bright [place]ak[place] Adult Child Health Care Frieda t (per Health Care Power of Revenue Cycle Manager document) Care Teams Sulfuric Acid Plant Supervisor Relationship Specialty Start Date End Date Florentin Calvo, [address] [place] [address] PCP - General Internal Medicine 03/24/13 documented as of this encounter
--- OUTSIDE RECORDS SUMMARY | 2023-08-14 23:37 | External Medical Summary | Summary of Care ---
Author Name Unknown Organization [facility] Address [address] [place] [address] Phone [phone] Care Team Providers Care Hospital Chief Financial Officer Name Role Phone Florentin Calvo DO Primary Care Provider [phone] Reason for Visit * Reason Onset Date Comments Med Request 05/16/2023 Test Results 05/16/2023 Encounter Details Date Type Department Care Team Description 05/16/2023 Telephone NephrologyJerri [address] [place] [address] Rosario Green MD [address] [place] [address] Med Request; Test Results Allergies Active Allergy Reactions Severity Noted Date Comments Azithromycin Other (Please comment) 12/04/2021 QTC prolongation at [facility] Celecoxib Hives,Rash High 03/24/2013 [...] as of this encounter (statuses as of 05/16/2023) Medications Medication Sig Dispensed Refills Start Date End Date Status OneTouch Verio w/Device KitIndications:Typ e 2 diabetes mellitus [...] for Wheezing. 15 g 12 06/13/2022 Active Fluticasone-Salmet wero 250-50 MCG/ACT Inhalation Aerosol Powder Breath Activated (Advair Diskus) Inhale 1 Puff by mouth in the morning and 1 Puff before bedtime. 60 Each 2 12/12/2022 Active AnamariaPhilradha Dia In Vitro Strip (Glucose Blood) Test blood [...] DIRECTED 100 Tablet 3 03/31/2023 Active Ipratropium [place] 0.03 % Nasal Solution (Atrovent)Indicati ons:Chronic rhinitis Administer 2 Sprays into nostril in the morning and 2 Sprays before bedtime. 90 mL 3 04/01/2023 Active Additional Information Patient not taking.Reported on 05/09/2023 Sotalol HCl 80 MG Oral Tablet (Betapace)Indicati [...] at bedtime. 90 Tablet 3 05/16/2023 Active Allopurinol 100 MG Oral Tablet (Zyloprim)Indicati ons:Gout, arthropathy Take 2 Tablets by mouth at bedtime. 180 Tablet 3 05/01/2023 3 Discontinue d(Medicatio n/Dose Changed) Hospital, Clinic, or Other Facility Administered [...] as of this encounter (statuses as of 05/16/2023) Active Problems Problem Noted Date S/P mitral valve clip implantation 03/06 Atherosclerosis of [place] coronary arter y without angina pectoris 02/13/2023 Last Assessment & Plan: Continue statin, sotalol. 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 Denies fever/chills. Exam benign. Likely viral. -Mucinex 1200mg BID ordered x7 days. -Instructed supportive care and to call [facility] if she feels she is worsening, not [...] as of this encounter (statuses as of 05/16/2023) Immunizations Name Administration Dates Next Due COVID-19 [...] or do you have serious difficulty hearing? No-RENO-SPARKS can hear w/ hearing aid 03/07/2023 Are [...] Telephone Encounter - Regi Jacobs RN - 05/16/2023 10:58 AM EDT Te with pt's daughter regarding lab results and increase in Allopurinol. New RX pended for signature. She also reviewed holding diuretic as recommended day before,day of and day after CT scan. * Telephone Encounter - Regi Jacobs RN - 05/16/2023 10:52 AM EDT ----- Message from Rosario Green MD sent at 05/15/2023 4:21 PM EDT ----- Kidney labs stable but uric acid a bit elevated > recommend up allopurinol to 300 mg daily documented in this encounter Plan of Treatment Upcoming Encounters Date Type Specialty Care Team Description 05/20/2023 Appointment Radiology 05/22/2023 Office Visit Ophthalmology Wilbur Benavides DO [address] [place] [address] 05/23/2023 Office Visit Family Medicine Florentin Calvo DO [address] [place] [address] 05/28/2023 Home Visit Cris at Home Mónica [place] RN [address] [place] [address] 06/12/2023 Hospital Encounter Cardiac Weaver Apprentice Wilbur Rivera MD [address] [facility], [place] [phone] 06/12/2023 Surgery Cardiac Weaver Apprentice Wilbur Rivera MD [address] [place], [place] [phone] PERCUTANEOUS CLOSURE LEFT ATRIAL APPENDAGE IMPLANT 06/12/2023 Office Visit Cardiology [place], Cardiac Recovery [facility] [address] [place] [facility] [place] [address] 06/17/2023 Office Visit Cardiology Stephen Hewitt, DO [address] [place] [address] 06/26/2023 Office Visit Otolaryngology hCeri Castillo PA-C [address] [place] [address] 07/11/2023 Procedure Only Endoscopy Jana Vieira, DO [address] [place] [address] 09/25/2023 Office Visit Nephrology GreenRosario alcantar MD 200 [place] [address] 10/14/2023 Office Visit Hematology Oncology Nereyda Metz CRNP [address] [facility] [place] [address] 10/24/2023 Office Visit Gynecology Oncology Chris Peng PA-C [address] [place], [place] [phone] Scheduled Procedures Name Priority Associated Diagnoses Date/Ti me PERCUTANEOUS CLOSURE LEFT ATRIAL APPENDAGE IMPLANT Paroxysmal atrial fibrillation (HCC) 06/12/2023 12:00 PM EDT Health Maintenance Due Date Last Done Comments DIABETES-EYE EXAM 04/11/2023 04/11/2022, , 04/11/2022, Additional history exists CKD PHOS USE SMARTSET 73165 05/01/2023 09/0 02/2022, 04/03/2022, 12/05/2020, Additional history exists HbA1c 08/23/2023 02/21/2023, 01/0 10/2022, 04/03/2022, Additional history exists TSH 09/24/2023 09/24/2022, 01/0 10/2022, 02/12/2022, Additional history exists Diabetic Foot Exam 10/01/2023 10/01/2022, 0 10/26/2021, 12/05/2020, Additional history exists GFR 11/07/2023 05/09/2023, 08/0 03/2023, 03/14/2023, Additional history exists Albumin/Creatinine Ratio 02/22/2024 023, 05/01/2022, 10/26/2021, Additional history exists CKD HGB USE SMARTSET 88321 04/11/202404/11, 04/11/2023, 04/01/2023, Additional history exists Depression [...] this encounter Medical Devices Implanted Type Area Film Laboratory Technician Device Identifier Shelf Expiration Date Model / Serial / Lot Cath Thermodilution 6fr - [id number] Implanted:Qty: 1 on 01/24/2023 by Wilbur Rivera MD at [facility] [employer] [id number] 10/15/2024 [id number] / / [id number] Mirtaclip G4 - [id number] Implanted:Qty: 1 on 03/10/2023 at [facility] [employer] 11/19/2023 [id number] / / [id number] documented as of this encounter Advance Directives Documents on File Type Date Recorded Patient Radiological Technologist Expl anation Advance Directives and Living Will 11/29/2022 ADVANCE DIRECTIVE / LIVING WILL Power of [place] Agent 11/29/2022 POWER OF A TTORNEY Advance Directives and Living Will 10/24/2014 ADVANCE DIRECTIVE / LIVING WILL Power of [place] Agent 10/24/2014 POWER OF A TTORNEY Latest Code [...] Agen t (per Health Care Power of [employer] Agent document) Care Teams Hospital Chief Financial Officer Relationship Specialty Start Date End Date Florentin Calvo, [address] [facility] [place] [address] PCP - General Internal Medicine 03/24/13 documented as of this encounter
--- OUTSIDE RECORDS SUMMARY | 2023-08-14 23:37 | External Medical Summary | Summary of Care ---
Author Name Unknown Organization [facility] Address [address] [place] [address] Phone [phone] Care Team Providers Care Manager Apple Name Role Phone Florentin Calvo DO Primary Care Provider [phone] Reason for Visit * Reason Onset Date Comments Procedure 05/19/2023 Encounter Details Date Type Department Care Team Description 05/19/2023 Telephone Cardiology [facility] [address] [place] [address] [place] Jean-Baptiste CRNP [address] [place] [address] Procedure Allergies Active Allergy Reactions Severity Noted Date Comments Azithromycin Other (Please comment) 12/04/2021 QTC prolongation at [facility] Celecoxib Hives,Rash High 03/24/2013 Other [...] as of this encounter (statuses as of 05/19/2023) Medications Medication Sig Dispensed Refills Start Date End Date Status OneTouch Verio w/Device KitIndications:Type 2 diabetes mellitus with hemoglobin A1c goal of less than 7.0% ([facility]) Use up to 1 times a [...] s:PVD (peripheral vascular disease) ([facility]),Type 2 diabetes mellitus with stage 3a chronic kidney disease and hypertension ([facility]) TAKE ONE TABLET BY MOUTH EVERY DAY DIRECTED 100 Tablet 3 03/31/2023 Active Ipratropium [place] 0.03 % Nasal Solution (Atrovent)Indicatio ns:Chronic rhinitis [...] as of this encounter (statuses as of 05/19/2023) Active Problems Problem Noted Date S/P mitral valve clip implantation 03/06 Atherosclerosis of [place] coronary arter y without angina pectoris 02/13/2023 Last Assessment & Plan: Continue statin, sotalol. 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 No-FOND [place] can hear w/ hearing aid 03/07/2023 Are [...] Miscellaneous Notes * Telephone Encounter - JESS Hawkins - 05/19/2023 9:07 AM EDT Rescheduled watchman implant to 12/7 at 6 AM documented in this encounter Plan of Treatment Upcoming Encounters Date Type Specialty Care Team Description 05/20/2023 Appointment Radiology 05/22/2023 Office Visit Ophthalmology Wilbur Benavides, DO [address] [place] [address] 05/23/2023 Office Visit Family Medicine Florentin Calvo, DO [address] [place] [address] 05/28/2023 Home Visit [facility] M[facility] Angeles, AISHA [address] [place] [address] 06/12/2023 Hospital Encounter Cardiac Clinical Rn Wilbur Rivera MD [address] [place] [address] 06/12/2023 Surgery Cardiac Clinical Rn Wilbur Rivera MD [address] [place] [facility] [place] [address] PERCUTANEOUS CLOSURE LEFT ATRIAL APPENDAGE IMPLANT 06/12/2023 Office Visit Cardiology Michelle, Cardiac Recovery Surya [address] [place] [facility] [place] [address] 06/17/2023 Office Visit Cardiology Stephen Hewitt DO [address] [place] [address] 06/26/2023 Office Visit Otolaryngology Cehri Castillo PA-C [address] [place] [address] 07/11/2023 Procedure Only Endoscopy Jana Vieira DO [address] [place] [address] 09/25/2023 Office Visit Nephrology Rosario Green MD [address] [place] [address] 10/14/2023 Office Visit Hematology Oncology Nereyda Metz CRNP [address] [place] [address] 10/24/2023 Office Visit Gynecology Oncology Chris Peng PA-C [address] [place] [address] Scheduled Procedures Name Priority Associated Diagnoses Date/Ti me PERCUTANEOUS CLOSURE LEFT ATRIAL APPENDAGE IMPLANT Paroxysmal atrial fibrillation (HCC) 06/12/2023 12:00 PM EDT Health Maintenance Due Date Last Done Comments DIABETES-EYE EXAM 04/11/2023 04/11/2022, , 04/11/2022, Additional history exists CKD PHOS USE SMARTSET 71973 05/01/2023 09/0 02/2022, 04/03/2022, 12/05/2020, Additional history exists HbA1c 08/23/2023 02/21/2023, 01/0 10/2022, 04/03/2022, Additional history exists TSH 09/24/2023 09/24/2022, 010 10/2022, 02/12/2022, Additional history exists Diabetic Foot Exam 10/01/2023 10/01/2022, 0 10/26/2021, 12/05/2020, Additional history exists GFR 11/07/2023 05/09/2023, 08/0 03/2023, 03/14/2023, Additional history exists Albumin/Creatinine Ratio 02/22/2024 023, 05/01/2022, 10/26/2021, Additional history exists CKD HGB USE SMARTSET 07197 04/11/202404/11, 04/11/2023, 04/01/2023, Additional history exists Depression [...] this encounter Medical Devices Implanted Type Area Manager Of Patient Device Identifier Shelf Expiration Date Model / Serial / Lot Cath Thermodilution 6fr - [id number] Implanted:Qty: 1 on 01/24/2023 by [place]bur Rivera [place] [facility] [place] [employer] [id number] 10/15/2024 [id number] / / [id number] Mirtaclip G4 - [id number] Implanted:Qty: 1 on 03/10/2023 [place] [facility] [place] 11/19/2023 [id number] / / [id number] documented as of this encounter Advance Directives Documents on File Type Date 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 Advance Directives and Living Will 11/29/2022 ADVANCE DIRECTIVE / LIVING WILL Power of Vrt Mechanic 11/29/2022 POWER OF A TTORNEY Advance Directives and Living Will 10/24/2014 ADVANCE DIRECTIVE / LIVING WILL Power of Vrt Mechanic 10/24/2014 POWER OF A TTORNEY Latest Code [...] Agents on File Name Relationship Healthcare Agent [facility] Communication [facility] [place] [facility] t (per Health Care Power of Vrt Mechanic document) Care Teams Manager Apple Relationship Specialty Start Date End Date Florentin Calvo, [address] [place] [address] PCP - General Internal Medicine 03/24/13 documented as of this encounter
--- OUTSIDE RECORDS SUMMARY | 2023-08-14 23:37 | External Medical Summary ---
Author Name Unknown Address Unknown Organization [id number]:[facility] [place] - [address] [place] [address] Laboratory Report Ordering Provider Test Date Status CJ LAWS 05/09/2023 13:12:59 Final Deficient: <20 ng/mL
Ins ufficient: 20-29 ng/mL
Recommended/Optimum:30-50 ng/mL

Vitamin D intoxication is rare. If suspicious of Vitamin D toxicity, evaluation of serum Calcium and PTH is recommended. Observation Date Value Abnormality Reference (Units ) Status 25-OH Vitamin D total 05/09/2023 13:12:59 55 >19 (ng/mL) Final Performing Location [facility] [place] - [address] [place] [address]
--- OUTSIDE RECORDS SUMMARY | 2023-08-14 23:37 | External Medical Summary | Summary of Care ---
Author Name Unknown Organization [facility] Address [address] [place] [address] Phone [phone] Care Team Providers Care Cover Assembler Name Role Phone Grey Calvo DO Primary Care Provider [phone] Reason for Visit * Reason Comments Chronic Kidney Disease (CKD) Encounter Details Date Type Department Care Team Description 05/09/2023 Office Visit Nephrology, [facility] [place] [address] [place] [address] Veto Corona MD [address] [place] [address] Stage 3b chronic kidney disease (HCC)*; HTN, goal below 130/80; Secondary hyperparathyroidism, renal (HCC); Iron deficiency anemia due to chronic blood loss; 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) Allergies Active Allergy Reactions Severity Noted Date [...] as of this encounter (statuses as of 05/11/2023) Medications Medication Sig Dispensed Refills Start Date End Date Status OneTouch Verio w/Device KitIndications:Type 2 diabetes mellitus with hemoglobin A1c goal of less than 7.0% ([facility]) Use up to 1 times [...] before bedtime. 60 Each 2 12/12/2022 Active Mireya Dia In Vitro Strip (Glucose Blood) Test [...] Oral Tablet (Lipitor)Indication s:PVD (peripheral vascular disease) ([facility]),Type 2 diabetes mellitus with stage 3a chronic kidney disease and hypertension ([facility]) TAKE ONE TABLET BY MOUTH EVERY DAY DIRECTED 100 Tablet 3 03/31/2023 Active Ipratropium [place] 0.03 % Nasal Solution (Atrovent)Indicatio ns:Chronic rhinitis [...] as of this encounter (statuses as of 05/11/2023) Active Problems Problem Noted Date S/P mitral valve clip implantation 03/06 Atherosclerosis of [place] coronary arter y without angina pectoris 02/13/2023 [...] Obstructive sleep apnea of adult 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 Denies fever/chills. Exam benign. Likely viral. -Mucinex 1200mg BID ordered x7 days. -Instructed supportive care and to call [facility] if she feels she is worsening, not [...] as of this encounter (statuses as of 05/11/2023) Immunizations Name Administration Dates Next Due COVID-19 [...] Sign Reading Time Taken Comments Blood Pressure 131/58 05/09/2023 12:30 PM EDT Pulse 60 05/09/2023 12:30 PM EDT Temperature 35.4 C (95.7 F) 05/09/2023 12:30 PM E DT Respiratory Rate - - Oxygen Saturation - - Inhaled Oxygen Concentration - - Weight 71.8 kg (158 lb 4.8 oz) 05/09/2023 12:30 PM EDT Height - - Body Mass Index 26.34 04/23/2023 8:57 AM EDT documented in this encounter Functional Status Functional Status Response Date of Assess ment Are you deaf or do you have serious difficulty hearing? No-[place] can hear w/ hearing aid 03/07/2023 Are [...] this encounter Patient Instructions * Patient Instructions* Veto Corona MD - 05/09/2023 1:03 PM EDT - no med changes -lab today >>will be in touch about IV contrast w/ CT scan -avoid medicines like aleve, advil, ibuprofen, aspirin more than 81 mg daily and other NSAIDS whichare not good for kidney patients. Take only tylenol (acetaminophen) up to 2000 mg daily as needed for pain or as directed by your primary care provider. -keep working with physical therapy documented in this encounter Progress Notes * Veto Corona MD - 05/09/2023 12:40 PM EDT NEPHROLOGY CLINIC NOTE Nephrology, [place] [address] 05/09/2023, 12:40 PM Patient Name: Inga Barakat BACKGROUND: 82 year old female presents for f/u of nonproteinuric CKD 3B attributed to advancing age w/ worsening clinical status spring 2022 Medical history includes diet controlled diabetes since about 2006, paroxysmal AFib on no anticoagulation and sotalol, sick sinus syndrome status post July 2022 pacer, chronic heart failure, sleep apnea on CPAP, asthma on inhalers, reformed smoker quit late , hiatal hernia, hypothyroid, gout, depression, lumbar spinal stenosis, elevated kappa free light chains from renal dz per heme 06/2016. Recommended Q 4-6 months repeat light chain assays. Note no HTN. Anticoagulation held Februaryue to severe anemia with no clear source, question AVMs. Follows w/ [facility] pulm. Follows with GI after upper and lower scopes > anemia attributed to intermittent Ivan erosions and to anticoagulation. Also had a cystoscopy 2011 for vaginal d/c 2011 w/ non [facility] provider; per pt negative and no urology f/u needed. Hospitzalized [facility] February 2022 for anemia x 1 wk > (creat from 1 > 1.4); her OP creat has run 1.3-1.4. S/p cardiac pacer 07/2022; also diagnosed w/ HFpEF 07/2022 and started on torsemide. Had evaluation with imaging for elevated PTH. No evidence of adenoma found . She has been seen by ENT for voice tremors and dysphonia, not specifically for PTH issues. For p.r.n. follow-up with ENT. Never user of nsaids. No personal hx of stones. No FH of renal dz except brother w/ kidney stones. 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 TODAY 05/09/2023: Big clinical improvement since last visit after cardiac procedure. had mitraclip and plans watchman May. Torse dose lowered 40 > 20 by Cardiology. Hoping to get her off torsemide once watchman completed per patient. breathing is "a gadjillion times better," " like a weight was taking off." ( At last OV OOB in bed w/ HOB up). On a walker now consumes around with it per daughter. Drinks 40-60 oz fuilds most days. No falls since January (at last visit had frequent falls including 1 few weeks before the visit) Breathing better and better able to do PT now. Daugther watching her carefully. For upcoming CT scan for heart procedure upcoming w/ IV con in [facility] >> on 05/20 ROS General: No weakness, No fevers, sweats, or chills, No change in weight. Head: No significant headache Eyes: No recent significant change in vision. Respiratory: No cough; breathing as above Cardiovascular:No chest pain; denies palpitations, and No syncope Gastrointestinal: No nausea, vomiting, diarrhea No hematemesis, No blood in stools No abdominal pain Urinary: No dysuria, No hematuria. No flank pain Musculoskeletal: No new muscle pains or cramps; ongoing LE edema eli RLE >> biggest new c/o is thoracic spine, hunches w/ pain w/ this relieved w/ heating ce Skin: No itching Neuro > stable chronic BL foot paresthesias; R knee/leg weakness; Occasional presyncopal sx not related to pacer; Current Outpatient Medications Medication Sig Dispense Refill [place] w/Device Kit Use up to 1 times [...] as needed for Wheezing. 15 g 12 Fluticasone-Salmeterol 250-50 MCG/ACT Inhalation Aerosol Powder Breath Activated (Advair Diskus) Inhale 1 Puff by mouth in the morning and 1 Puff before bedtime. 60 Each 2 EnecsysTouch Verio In Vitro Strip (Glucose Blood) Test [...] BY MOUTH EVERY DAY DIRECTED 100Tablet 3 Sotalol HCl 80 MG Oral Tablet (Betapace) Take 0.5 Tablets by mouth in the morning and 0.5 Tablets before bedtime. 300 Tablet 3 Pantoprazole Sodium 40 MG Oral Tablet Delayed Release (Protonix) Take 1 Tablet by mouth in the morning and 1 Tablet in the evening. 200 Tablet 1 Allopurinol 100 MG Oral Tablet (Zyloprim) Take 2 Tablets by mouth at bedtime. 180 Tablet 3 Ipratropium [place] 0.03 % Nasal Solution (Atrovent) Administer 2 Sprays into nostril in the morning and 2 Sprays before bedtime. (Patient not taking: Reported on 05/09/2023) 90 mL 3 Current Facility-Administered Medications Medication Dose Route Frequency Provider Last Rate Last Admin Albuterol Sulfate (Proventil) (2.5 MG/3ML) 0.083% inhalation solution 2.5 mg 2.5 mg Nebulizer PRN Abigail Goncalves PA-C Albuterol Sulfate (Proventil) (5 MG/ML) 0.5% *conc* inhalation solution 2.5 mg 2.5 mg Nebulizer PRRashawn Goncalves PA-C Albuterol Sulfate (Proventil) (5 MG/ML) 0.5% *conc* inhalation solution 2.5 mg 2.5 mg Nebulizer JESS Mesa Albuterol Sulfate (Proventil) (2.5 MG/3ML) 0.083% inhalation solution 2.5 mg 2.5 mg Nebulizer PRN JESS [place] 2.5 mg at 10/31/22 1441 Review of [...] Azithromycin Other (Please comment) QTC prolongation at [facility] Nickel Swelling Other reaction(s): Unknown PHYSICAL EXAMINATION: BP Readings from Last 6 Encounters: 05/09/23 131/58 04/18/23 106/60 04/16/23 126/70 04/11/23 122/74 04/10/23 120/68 04/07/23 118/56 Wt Readings from Last 6 Encounters: 05/09/23 71.8 kg (158 lb 4.8 oz) 04/23/23 70.2 kg (154 lb 11.2 oz) 04/18/23 70.6 kg (155 lb 9.6 oz) 04/16/23 71.7 kg (158 lb 1.6 oz) 04/11/23 71.7 kg (158 lb 1.6 oz) 04/10/23 70.5 kg (155 lb 8 oz) Pulse Readings from Last 6 Encounters: 05/09/23 60 04/18/23 81 04/16/23 60 04/11/23 73 04/10/23 68 04/07/23 80 NAD, oriented x 3, ambulatory w/ walker Normocephalic, atraumatic, eomi nonicteric sclerae MMM, hoarse Supple neck RRR w/o m/g/r; no edema CTAB w/ reduced air mvt NT abd, +BS, soft No cyanosis or clubbing No rash No tremor, focal or global weakness; fluent speech, good historian LABS: Recent Labs Units 05/09/23 1312 04/01/23 1429 03/14/23 1053 03/07/23 0414 SODIUM - [facility] mmol/L 140 138 139 139 POTASSIUM - [facility] mmol/L 4.8 3.5 3.8 4.0 CHLORIDE - [facility] mmol/L 100 100 98 104 CO2 - [facility] mmol/L 26 22 26 23 BUN - [facility] mg/dL 58* 51* 47* 38* CREATININE - [facility] mg/dL 1.6* 1.5* 2.0* 1.5* ESTIMATED GLOMERULAR FILTRATION RATE - [facility] mL/min 31* 35* 25* 34* Latest Ref Rng 12/12/2022 12/23/2022 01/06/2023 01/21/2023 01/24/2023 02/05/2023 NEPH-FLOW Bun 6 - 20 mg/dL 39 (H) 29 (H) 49 (H) 63 (H) 55 (H) 48 (H) Cr 0.5 - 1.0 mg/dL 1.8 (H) 1.7 (H) 1.7 (H) 2.1 (H) 1.8 (H) 1.6 (H) eGFR >=60 mL/min 28 (L) 31 (L) 29 (L) 23 (L) 28 (L) 32 (L) eGFR >60 K 3.5 - 5.1 mmol/L 4.4 4.9 4.6 4.4 3.8 4.2 Hb 12.0 - 15.3 g/dL 9.2 (L) 10.7 (L) 10.4 (L) 9.7 (L) 9.8 (L) 10.7 (L) Latest Ref Rng 02/21/2023 03/04/2023 03/06/2023 03/07/2023 03/14/2023 NEPH-FLOW Bun 6 - 20 mg/dL 43 (H) 45 (H) 40 (H) 38 (H) 47 (H) Cr 0.5 - 1.0 mg/dL 1.7 (H) 1.8 (H) 1.5 (H) 1.5 (H) 2.0 (H) eGFR >=60 mL/min 29 (L) 28 (L) 35 (L) 34 (L) 25 (L) eGFR >60 K 3.5 - 5.1 mmol/L 4.2 4.1 4.4 4.0 3.8 K 3.8 Hb 12.0 - 15.3 g/dL 9.6 (L) 10.1 (L) 9.5 (L) 8.8 (L) 11.2 (L) Latest Ref Rng 04/01/2023 04/11/2023 NEPH-FLOW Bun 6 - 20 mg/dL 51 (H) Cr 0.5 - 1.0 mg/dL 1.5 (H) eGFR >=60 mL/min 35 (L) eGFR >60 K 3.5 - 5.1 mmol/L 3.5 Hb 12.0 - 15.3 g/dL 11.7 (L) 10.9 (L) Recent Labs Units 04/11/23 1315 04/01/23 1429 03/14/23 1053 03/07/23 0414 01/06/23 1049 12/23/22 1042 12/12/22 0937 12/06/22 1042 HGB - [facility] g/dL 10.9* 11.7* 11.2* 8.8* < > 10.7* 9.2* 7.3* FERRITIN - [facility] ng/mL -- -- 441* -- -- 363* 297* 334* TRANSFERRIN SATURATION PERCENT - [facility] % -- -- 17 -- -- 22 13* 13* < > = values in this interval not displayed. Recent Labs Units 05/09/23 1312 04/01/23 1429 03/14/23 1053 03/07/23 0414 06/12/22 1054 05/01/22 0839 04/03/22 0959 CALCIUM - [facility] mg/dL 9.9 9.5 9.7 9.0 < > 9.3 10.0 PHOSPHORUS - [facility] mg/dL -- -- -- -- -- 3.9 4.3 25-HYDROXY VITAMIN D - [facility] ng/mL -- -- -- -- -- -- 55 PTH - [facility] pg/mL -- -- -- -- -- 77* 65 < > = values in this interval not displayed. Recent Labs Units 02/21/23 1231 08/27/22 1609 04/03/22 0959 10/26/21 1436 HEMOGLOBIN A1C - [facility] % 6.5* 6.2* 5.8* 6.5* Recent Labs Units 02/21/23 1233 05/01/22 0839 10/26/21 1439 ALBUMIN / CREATININE RATIO, URINE - [facility] mg/g Creat 25 <16 29 Recent Labs Units 12/30/22 1657 05/01/22 0839 07/29/21 0000 CLARITY, URINE - [facility] Clear Clear -- GLUCOSE, URINE - [facility] mg/dL 250* Negative -- BILIRUBIN, URINE - [facility] Negative Negative -- KETONE, URINE - [facility] mg/dL Negative Negative -- SPECIFIC GRAVITY, URINE - [facility] 1.008 1.010 -- BLOOD, URINE - [facility] Negative Trace* -- PH, URINE - [facility] Units 6.5 6.0 -- PROTEIN, URINE - [facility] mg/dL Negative Negative -- PROTEIN, UA-OUTSIDE LAB -- -- NEGATIVE UROBILINOGEN, URINE - [facility] mg/dL Normal 0.2 -- NITRITE, URINE - [facility] Negative Negative -- ESTERASE, URINE - [facility] Trace* Large* -- BACTERIA, URINE - [facility] /HPF 0-25 26-50* -- WBC, URINE - [facility] /HPF 0-2 10-19* -- RBC, URINE - [facility] /HPF 0-2 3-5* -- ASSESSMENT AND PLAN: Stage 3b chronic kidney disease (HCC) (Primary) - BASIC METABOLIC PANEL - PTH - 25-HYDROXY VITAMIN D - URIC ACID HTN, goal below 130/80 - BASIC METABOLIC PANEL Secondary hyperparathyroidism, renal (HCC) - PTH - 25-HYDROXY VITAMIN D Iron deficiency anemia due to chronic blood loss 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) Follow Up: Return in about 3 months (around 08/08/2023) for clinic visit w/ MD. | For: clinic visitw/ MD | Check-out note: To lab MD only Patient in the spring of this year had been veering into CKD 4 territory. March basic metabolic panel remarkable for improved/stabilized renal function with GFR 35. Trends from November through March were reviewed in detail. Mild hypokalemia noted on March labs.. No albuminuria on January assayas above. I did review most recent cardiology note -continue torsemide current dose -note no YE-inhibitor or ARB at this time and none indicated > re-evaluate after she completes watchman procedure -update labs and consider potassium supplements -check uric acid levels and assess allopurinol dose appropriateness -may need to consider holding torsemide day before/after IV contrast administration obligate for upcoming cardiology procedure. That said will check chemistries perhaps her renal function has improved further with improved cardiac function Blood pressure with acceptable control on torsemide only continue same. Activity as tolerated. Last renal osteodystrophy labs 1 year back or more in March of 2022. Reviewed above. Continue D3 current dose. Update labs with upcoming cardiology visit Patient Instructions - no med changes -lab today >>will be in touch about IV contrast w/ CT scan -avoid medicines like aleve, advil, ibuprofen, aspirin more than 81 mg daily and other NSAIDS whichare not good for kidney patients. Take only tylenol (acetaminophen) up to 2000 mg daily as needed for pain or as directed by your primary care provider. -keep working with physical therapy Veto Corona MD Nephrology, [facility] [address] [facility] [address] CC: Ref: VETO CORONA[[id number]] [address] [facility] [address] (office) [phone] (fax) PCP: [place] [address] [phone] This chart was completed in part utilizing [email or web address] Direct Speech Voice Recognition Software. Randomword insertions, pronoun errors, and incomplete sentences are an occasional consequence of this system due to software limitations, and ambient noise. Any questions or concerns about the content, text, or information contained within the body of this dictation should be directly addressed to the provider for clarification. documented in this encounter Nursing Notes * Natalee Toledo LPN - 05/09/2023 12:28 PM EDT Return patient- no recent illness or hospitalizations. Pt stated she has swelling in legs. Mostly in the right leg. documented in this encounter Plan of Treatment Upcoming Encounters Date Type Specialty Care Team Description 05/14/2023 Cardiac Studies Cardiac Studies 05/20/2023 Appointment Radiology 05/22/2023 Office Visit Ophthalmology Wilbur Benavides DO [address] [place] [address] 05/23/2023 Office Visit Family Medicine Grey Calvo, DO [address] [place] [address] 05/28/2023 Home Visit [facility] Mónica Angeles RN [address] [place] [address] 06/12/2023 Hospital Encounter Cardiac Baked And Graphite Inspector Wilbur Rivera MD [address] [place] [address] 06/12/2023 Surgery Cardiac Baked And Graphite Inspector Wilbur Rivera MD [address] [place] [address] PERCUTANEOUS CLOSURE LEFT ATRIAL APPENDAGE IMPLANT 06/12/2023 Office Visit Cardiology Michelle, Cardiac [facility] [address] [place], [place] [id number] 06/17/2023 Office Visit Cardiology Stephen Hewitt, DO [address] [place] [address] 06/26/2023 Office Visit Otolaryngology Cheri Castillo PA-C [address] [place] [address] 07/11/2023 Procedure Only Endoscopy Jana Vieira, DO [address] [place] [address] 09/25/2023 Office Visit Nephrology Veto Corona MD [address] [place] [address] 10/14/2023 Office Visit Hematology Oncology Nereyda Metz CRNP [address] [place], [place] [id number] 10/24/2023 Office Visit Gynecology Oncology Chris Peng PA-C [address] [place] [address] Scheduled Orders Name Type Priority Associated Diagnoses Orde r Schedule PTH Lab Routine Stage 3b chronic kidney disease (HCC) Secondary hyperparathyroidism, renal (HCC) Ordered: 05/11/2023 25-HYDROXY VITAMIN D Lab Routine Stage 3b chronic kidney disease (HCC) Secondary hyperparathyroidism, renal (HCC) Ordered: 05/11/2023 URIC ACID Lab Routine Stage 3b chronic kidney disease (HCC) Ordered: 05/11/2023 Scheduled Procedures Name Priority Associated Diagnoses Date/Ti me PERCUTANEOUS CLOSURE LEFT ATRIAL APPENDAGE IMPLANT Paroxysmal atrial fibrillation (HCC) 06/12/2023 12:00 PM EDT Health Maintenance Due Date Last Done Comments DIABETES-EYE EXAM 04/11/2023 04/11/2022, , 04/11/2022, Additional history exists Influenza Vaccine (FLU shot) (#1) 2023 05/15/2022, 05/22/2021, 04/19/2020, Additional history exists CKD PHOS USE SMARTSET 45076 05/01/2023 09/0 02/2022, 04/03/2022, 12/05/2020, Additional history exists HbA1c 08/23/2023 02/21/2023, 01/0 10/2022, 04/03/2022, Additional history exists TSH 09/24/2023 09/24/2022, 01/0 10/2022, 02/12/2022, Additional history exists Diabetic Foot Exam 10/01/2023 10/01/2022, 0 10/26/2021, 12/05/2020, Additional history exists GFR 11/07/2023 05/09/2023, 08/0 03/2023, 03/14/2023, Additional history exists Albumin/Creatinine Ratio 02/22/2024 023, 05/01/2022, 10/26/2021, Additional history exists CKD HGB USE SMARTSET 21428 04/11/202404/11, 04/11/2023, 04/01/2023, Additional history exists Depression [...] this encounter Medical Devices Implanted Type Area Tobacco Sample Puller Device Identifier Shelf Expiration Date Model / Serial / Lot Cath Thermodilution 6fr - [id number] Implanted:Qty: 1 on 01/24/2023 by Wilbur Rivera MD at [facility] [employer] [id number] 10/15/2024 [id number] / / [id number] Mirtaclip G4 - [id number] Implanted:Qty: 1 on 03/10/2023 at [facility] [place] [employer] 11/19/2023 [id number] / / [id number] documented as of this encounter Procedures Procedure Name Priority Date/Time Associated Diagnosis Comments BASIC METABOLIC PANEL Routine 05/09/2023 1:12 PM EDT Stage 3b chronic kidney disease (HCC) HTN, goal below 130/80 documented in this encounter Results * (ABNORMAL) BASIC METABOLIC PANEL (05/09/2023 1:12 PM EDT) BUN 58(H) 6 - 20 mg/dL 05/09/2023 2:52 PM EDT [facility] 56- Creatinine 1.6(H) 0.5 - 1.0 mg/dL 05/09/2023 2:52 PM EDT [facility] 56- Estimated Glomerular Filtration Rate 31(L) >=60 mL/min 05/09/2023 2:52 PM EDT [facility] 56- Comment:eGFR is calculated b ased on the CKD-EPI 2020 equation Sodium 140 135 - 146 mmol/L 05/09/2023 2:52 PM EDT [facility] 56- Potassium 4.8 3.5 - 5.1 mmol/L 05/09/2023 2:52 PM EDT [facility] 56- Chloride 100 98 - 107 mmol/L 05/09/2023 2:52 PM EDT [facility] 56- CO2 26 22 - 32 mmol/L 05/09/2023 2:52 PM EDT [facility] 56- Anion Gap 14 7 - 15 mmol/L 05/09/2023 2:52 PM EDT [facility] 56- Glucose 98 70 - 120 mg/dL 05/09/2023 2:52 PM EDT [facility] 56- Calcium 9.9 8.4 - 10.2 mg/dL 05/09/2023 2:52 PM EDT [facility] 56- Blood Venous blood specimen / Unknown Venipuncture / Unknown 05/09/2023 1:12 PM EDT 05/09/2023 1:13 PM EDT Veto Corona MD LAB BLOOD ORDERAB LES [facility] [address]- [address] [place] [address] documented in this encounter Visit Diagnoses Diagnosis Paroxysmal atrial fibrillation (HCC)- Primary Atrial fibrillation Stage 3b chronic kidney disease (HCC)- Primary HTN, goal below 130/80 Unspecified essential hypertension Secondary hyperparathyroidism, renal (HCC) Secondary hyperparathyroidism (of renal origin) Iron deficiency anemia due to chronic blood loss Iron deficiency anemia secondary to blood loss (chronic) 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) Paroxysmal atrial fibrillation (HCC) Atrial fibrillation documented in this encounter Advance Directives Documents on File Type Date Recorded 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
--- OUTSIDE RECORDS SUMMARY | 2023-08-14 23:37 | External Medical Summary | Summary of Care ---
Author Name Unknown Organization [facility] Address [address] [place] [address] Phone [phone] Care Team Providers Care Metal Cleaner Name Role Phone Florentin Calvo DO Primary Care Provider [phone] Reason for Visit * Reason Onset Date Comments Medication Administration 05/13/2023 Flu an d/or Pneumo Inj Encounter Details Date Type Department Care Team Description 05/13/2023 Immunization Ancillary [address] [facility] [address] [place] [address] [place] [address] [place] [address] Need for prophylactic vaccination and inoculation against influenza* Allergies Active Allergy Reactions Severity Noted Date [...] as of this encounter (statuses as of 05/13/2023) Medications Medication Sig Dispensed Refills Start Date End Date Status OneTouch Verio w/Device KitIndications:Type 2 diabetes mellitus with hemoglobin A1c goal of less than 7.0% ([facility]) Use up to 1 times [...] before bedtime. 60 Each 2 12/12/2022 Active [employer] In Vitro Strip (Glucose Blood) Test blood [...] Oral Tablet (Lipitor)Indication s:PVD (peripheral vascular disease) ([facility]),Type 2 diabetes mellitus with stage 3a chronic kidney disease and hypertension ([facility]) TAKE ONE TABLET BY MOUTH EVERY DAY DIRECTED 100 Tablet 3 03/31/2023 Active Ipratropium [place] 0.03 % Nasal Solution (Atrovent)Indicatio ns:Chronic rhinitis [...] as of this encounter (statuses as of 05/13/2023) Active Problems Problem Noted Date S/P mitral valve clip implantation 03/06 Atherosclerosis of [place] coronary arter y without angina pectoris 02/13/2023 [...] Obstructive sleep apnea of adult 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 Soreness or redness at injection site 2. Low grade fever 3. Body aches You may use Tylenol/Acetaminophen as needed for these symptoms. LET YOUR DOCTOR KNOW IMMEDIATELY IF YOU HAVE DIFFICULTY BREATHING OR SWALLOWING, EXPERIENCE ITCHINGOF FEET OR HANDS, HAVE SWELLING OF EYES, FACE OR INSIDE OF NOSE. documented in this encounter Progress Notes * Yesenia Junior LPN - 05/13/2023 11:17 AM EDT PRE - ADMINISTRATION DOCUMENTATION Are you experiencing any cold symptoms or fever? No Have you had Guillain-Tolley Syndrome (an illness that causes paralysis) within the last 6 weeks? No Have you had the flu shot in the past? YES Have you ever had a reaction to the flu shot? No Yesenia Junior LPN, 05/13/2023 11:17 AM Immunization Administration Documentation Time Out Procedure Performed: Yes Patient Identified (Ask Name/Date of ): Yes Does the patient have a fever greater than 101 degrees today? No Patient allergic to latex? No C Stock: No Immunization(s) verified: Yes, Immunization Name: Flu, VIS Sheet(s) given: Yes Verified Side and Site: Yes Verified Shot(s) with Parent(s)/Patient: Yes documented in this encounter Plan of Treatment Upcoming Encounters Date Type Specialty Care Team Description 05/14/2023 Cardiac Studies Cardiac Studies 05/20/2023 Appointment Radiology 05/22/2023 Office Visit Ophthalmology Wilbur Benavides, DO 21 [facility] [address] [place] [phone] 05/23/2023 Office Visit Family Medicine Florentin Calvo, DO [address] [place] [address] 05/28/2023 Home Visit [facility] Mónica Angeles RN [address] [place] [address] 06/12/2023 Hospital Encounter Cardiac Farmworker Dairy Wilbur Rivera MD [address] [place] [address] 06/12/2023 Surgery Cardiac Farmworker Dairy Wilbur Rivera MD [address] [place] [address] PERCUTANEOUS CLOSURE LEFT ATRIAL APPENDAGE IMPLANT 06/12/2023 Office Visit Cardiology Michelle, Cardiac Recovery Surya [address] [place] [address] 06/17/2023 Office Visit Cardiology Stephen Hewitt, [address] [place] [address] 06/26/2023 Office Visit Otolaryngology Cheri Castillo PA-C [address] [place] [address] 07/11/2023 Procedure Only Endoscopy Jana Vieira, DO [address] [place] [address] 09/25/2023 Office Visit Nephrology GreenRosario alcantar MD [address] [place] [address] 10/14/2023 Office Visit Hematology Oncology Nereyda Metz CRNP [address] [place] [address] 10/24/2023 Office Visit Gynecology Oncology Chris Peng PA-C [address] [facility] [place] [address] Scheduled Procedures Name Priority Associated Diagnoses Date/Ti me PERCUTANEOUS CLOSURE LEFT ATRIAL APPENDAGE IMPLANT Paroxysmal atrial fibrillation (HCC) 06/12/2023 12:00 PM EDT Health Maintenance Due Date Last Done Comments DIABETES-EYE EXAM 04/11/2023 04/11/2022, , 04/11/2022, Additional history exists CKD PHOS USE SMARTSET 95928 05/01/2023 09/0 02/2022, 04/03/2022, 12/05/2020, Additional history exists HbA1c 08/23/2023 02/21/2023, 01/0 10/2022, 04/03/2022, Additional history exists TSH 09/24/2023 09/24/2022, 01/0 10/2022, 02/12/2022, Additional history exists Diabetic Foot Exam 10/01/2023 10/01/2022, 0 10/26/2021, 12/05/2020, Additional history exists GFR 11/07/2023 05/09/2023, 08/0 03/2023, 03/14/2023, Additional history exists Albumin/Creatinine Ratio 02/22/2024 023, 05/01/2022, 10/26/2021, Additional history exists CKD HGB USE SMARTSET 30590 04/11/202404/11, 04/11/2023, 04/01/2023, Additional history exists Depression [...] this encounter Medical Devices Implanted Type Area Civil Attorney Device Identifier Shelf Expiration Date Model / Serial / Lot Cath Thermodilution 6fr - [id number] Implanted:Qty: 1 on 01/24/2023 by Wilbur Rivera MD at [facility] [employer] [id number] 10/15/2024 [id number] / / [id number] Mirtaclip G4 - [id number] Implanted:Qty: 1 on 03/10/2023 at [facility] [employer] 11/19/2023 [id number] / / [id number] documented as of this encounter Visit Diagnoses Diagnosis Paroxysmal atrial fibrillation (HCC)- Primary Atrial fibrillation Need for prophylactic vaccination and inoculation against influenza- Primary Paroxysmal atrial fibrillation (HCC) Atrial fibrillation documented in this encounter Advance Directives Documents on File Type Date Recorded Patient Warp Changer Expl anation Advance Directives and Living Will 11/29/2022 ADVANCE DIRECTIVE / LIVING WILL Power of Dusting And Brushing Machine Operator 11/29/2022 POWER OF A TTORNEY Advance Directives and Living Will 10/24/2014 ADVANCE DIRECTIVE / LIVING WILL Power of Dusting And Brushing Machine Operator 10/24/2014 POWER OF A TTORNEY [...] on File Name [facility] Bright Barakat Adult Child Health Care Frieda t (per Health Care Power of Dusting And Brushing Machine Operator document) Care Teams Metal Cleaner Relationship Specialty Start Date End Date Florentin Calvo, [address] [place] [address] PCP - General Internal Medicine 03/24/13 documented as of this encounter
--- OUTSIDE RECORDS SUMMARY | 2023-08-14 23:37 | External Medical Summary | Summary of Care ---
Author Name Unknown Organization [facility] Address [address] [place] [address] Phone [phone] Care Team Providers Care Ornamental Ironworker Name Role Phone Florentin Calvo DO Primary Care Provider [phone] Reason for Visit * Reason Comments Follow Up [address] ates "I don't think there a change" Encounter Details Date Type Department Care Team Description 05/22/2023 Office Visit Ophthalmology, [facility] [address] [facility] [place] [address] Wilbur Benavides DO 21 [facility] [place] [phone] Type 2 diabetes mellitus with hemoglobin A1c goal of less than 7.0% ([facility]; Diabetic eye exam ([facility]); Pseudophakia; Nevus of choroid of left eye Allergies Active Allergy Reactions Severity Noted Date Comments Azithromycin Other (Please comment) 12/04/2021 QTC prolongation at [facility] Celecoxib Hives,Rash High 03/24/2013 Other reaction(s): [...] as of this encounter (statuses as of 05/22/2023) Medications Medication Sig Dispensed Refills Start Date End Date Status OneTouch Verio w/Device KitIndications:Type 2 diabetes mellitus with hemoglobin A1c goal of less than 7.0% ([facility]) Use up to 1 times a day. [...] Oral Tablet (Lipitor)Indication s:PVD (peripheral vascular disease) ([facility]),Type 2 diabetes mellitus with stage 3a chronic kidney disease and hypertension ([facility]) TAKE ONE TABLET BY MOUTH EVERY DAY DIRECTED 100 Tablet 3 03/31/2023 Active Ipratropium [place] 0.03 % Nasal Solution (Atrovent)Indicatio ns:Chronic rhinitis [...] as of this encounter (statuses as of 05/22/2023) Active Problems Problem Noted Date S/P mitral valve clip implantation 03/06 Atherosclerosis of [place] coronary arter y without angina pectoris 02/13/2023 Last Assessment & Plan: Continue statin, sotalol. 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 No-TUSCARORA can hear w/ hearing aid 03/07/2023 Are [...] as of this encounter Progress Notes * Wilbur Benavides, DO - 05/22/2023 2:00 PM EDT 05/22/23 [facility] Ophthalmology Clinic Note HPI: Inga Barakat is a 82 year old pt who presents to the eye clinic today as a return. 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 Base Eye Exam Visual Acuity (Snellen - Linear) Right Left Dist cc 20/30 20/25 -1 Correction: Glasses Tonometry (Tonopen, 2:08 PM) Right Left Pressure 14 13 Pupils Light Shape React APD Right 4 Round Brisk None Left 4 Round Brisk None Visual Mckeon (Counting fingers) Right Left Full Full Extraocular Movement Right Left Full Full Neuro/Psych Oriented x3: Yes Mood/Affect: Normal Dilation Both eyes: 0.5% Proparacaine, 2.5% Phenylephrine, 1.0% Mydriacyl @ 2:08 PM Additional Tests Keratometry K1 [place] K2 [place] Right 44.50 011 45.25 101 Left 44.75 011 45.00 101 Slit Lamp and Fundus Exam External Exam Right Left External Normal Normal Slit Lamp Exam Right Left Lids/Lashes Dermatochalasis - upper lid Dermatochalasis - upper lid Conjunctiva/Sclera White and quiet White and quiet Cornea Clear Clear Anterior Chamber Deep and quiet Deep and quiet Iris Round and reactive Round and reactive Lens PCIOL, 1+ PCO PCIOL, trace PCO Fundus Exam Right Left Vitreous [place] ring Normal Disc Normal Normal C/D Ratio 0.3 0.25 Macula ?ERM, loss of foveal reflex loss of foveal reflex Vessels Vascular attenuation Vascular attenuation Periphery Normal nevus adjacent to disc superiorly Refraction Wearing Rx Sphere Cylinder [place] Add Right -2.25 Sphere +2.75 Left -2.00 +0.50 155 +2.75 Manifest Refraction (Auto) Sphere Cylinder [place] Right -2.50 +0.50 123 Left -1.75 +0.25 176 Refraction 05/16/22 Right eye: -2.25 20/20-1 Left eye: -2.00 + 0.50 x 155 20/25 ADD: +2.75 - J1+ A/P: Diabetic Eye Exam -No evidence of Diabetic changes on anterior or posterior exam -Cont blood glucose control and HTN control -Explained pathophysiology of how diabetes affects eyes -RTC in 1 year for routine f/u Last performed 04/2023 Due next 04/2024 Pseudophakia OU -Looks good, PCO interval increase OD - to watch Choroidal nevus, OS -No concerning features Refractive error -Refraction 05/16/22 - see above RTC 1 year or sooner prn. Wilbur Benavides DO 05/22/23 I spent a total of 10-19 minutes (exact time 10 mins) on the date of service in preparation, delivery, and documentation of the care provided to Inga Barakat excluding any time spent in the performance of separately billed services. documented in this encounter Nursing Notes * RODRIGUEZ Antoine - 05/22/2023 2:01 PM EDT 1 year return. Pt states "I don't think there a change" Do you check your sugar daily? YES. Did not measure this morning. Last Hemoglobin A1C: Lab Results Component Value Date/Time HGBA1C 6.5 (H) 02/21/2023 12:31 PM HGBA1C 6.2 (H) 08/27/2022 04:09 PM HGBA1C 5.8 (H) 04/03/2022 09:59 AM HGBA1C 6.4 (H) 06/13/2020 03:27 PM HGBA1C 6.5 (H) 01/28/2020 09:57 AM HGBA1C 6.6 (H) 01/03/2020 12:07 PM documented in this encounter Plan of Treatment Upcoming Encounters Date Type Specialty Care Team Description 05/23/2023 Office Visit Family Medicine Florentin Calvo, DO [address] [place] [place] [address] 05/28/2023 Home Visit [facility] Mónica Angeles, AISHA [address] [place] [address] 06/17/2023 Office Visit Cardiology Stephen Hewitt DO [address] [place] [address] 06/26/2023 Office Visit Otolaryngology Cheri Castillo PA-C [address] [place] [address] 07/11/2023 Procedure Only Endoscopy Jana Vieira, DO [address] [place] [address] 07/31/2023 Hospital Encounter Cardiac Plant Inspector Wilbur Rivera MD [address] [place] [facility] [place] [address] 07/31/2023 Surgery Cardiac Plant Inspector Wilbur Rivera MD [address] [facility] [place] [address] PERCUTANEOUS CLOSURE LEFT ATRIAL APPENDAGE IMPLANT 07/31/2023 Office Visit Cardiology Michelle, Cardiac Recovery [facility] [address] [facility] [place] [address] 09/25/2023 Office Visit Nephrology Rosario Green MD 200 [place] [address] 10/14/2023 Office Visit Hematology Oncology Nereyda Metz CRNP [address] [facility] [place] [phone] 10/24/2023 Office Visit Gynecology Oncology Chris Peng PA-C [address] [place] [address] 06/03/2024 Office Visit Ophthalmology Wilbur Benavides DO 21 [facility] [place], [place] [id number] Scheduled Procedures Name Priority Associated Diagnoses Date/Ti me PERCUTANEOUS CLOSURE LEFT ATRIAL APPENDAGE IMPLANT Paroxysmal atrial fibrillation (HCC) 07/31/2023 6:00 AM EST Health Maintenance Due Date Last Done Comments CKD PHOS USE SMARTSET 91016 05/01/2023 09/0 02/2022, 04/03/2022, 12/05/2020, Additional history exists HbA1c 08/23/2023 02/21/2023, 0 10/2022, 04/03/2022, Additional history exists TSH 09/24/2023 09/24/2022, 0 10/2022, 02/12/2022, Additional history exists Diabetic Foot Exam 10/01/2023 10/01/2022, 0 10/26/2021, 12/05/2020, Additional history exists GFR 11/07/2023 05/09/2023, 080 03/2023, 03/14/2023, Additional history exists Albumin/Creatinine Ratio 02/22/2024 023, 05/01/2022, 10/26/2021, Additional history exists CKD HGB USE SMARTSET 88730 04/11/202404/11, 04/11/2023, 04/01/2023, Additional history exists Depression [...] this encounter Medical Devices Implanted Type Area Media Supervisor Device Identifier Shelf Expiration Date Model / Serial / Lot Cath Thermodilution 6fr - [id number] Implanted:Qty: 1 on 01/24/2023 by Wilbur Rivera MD [facility] [employer] [id number] 10/15/2024 [id number] / / [id number] Mirtaclip G4 - [id number] Implanted:Qty: 1 on 03/10/2023 at [facility] [employer] 11/19/2023 [id number] / / [id number] documented as of this encounter Visit Diagnoses Diagnosis Paroxysmal atrial fibrillation (HCC)- Primary Atrial fibrillation Type 2 diabetes mellitus with hemoglobin A1c goal of less than 7.0% (HCC)- Primary Diabetic eye exam (HCC) Type II or unspecified type diabetes mellitus without mention of complication, not stated as uncontrolled Pseudophakia Lens replaced by other means Nevus of choroid of left eye Paroxysmal atrial fibrillation (HCC) Atrial fibrillation documented in this encounter Advance Directives Documents on File Type Date Recorded Patient Veterinary Milk Specialist Expl anation Advance Directives and Living Will 11/29/2022 ADVANCE DIRECTIVE / LIVING WILL Power of Grinding Wheel Facer 11/29/2022 POWER OF A TTORNEY Advance Directives and Living Will 10/24/2014 ADVANCE DIRECTIVE / LIVING WILL Power of Grinding Wheel Facer 10/24/2014 POWER OF A TTORNEY Latest Code [...] Agents on File Name Relationship Healthcare Agent [facility] p Communication Bright Yuval Adult Child Health Care Agen t (per Health Care Power of Grinding Wheel Facer document) Care Teams Ornamental Ironworker Relationship Specialty Start Date End Date Florentin Calvo, DO [address] [facility] [place] [address] PCP - General Internal Medicine 03/24/13 documented as of this encounter
--- OUTSIDE RECORDS SUMMARY | 2023-08-14 23:38 | External Medical Summary ---
Author Name Unknown Address Unknown Organization K01:[facility] [address] [place] [address] Laboratory Report Ordering Provider Test Date Status VIJAYAROMULO MARQUEZCHAVEZMONAEJOSE LUIS 04/17/2023 15:20:32 Final Observation Date Value Abnormality Reference (Units) Status Source 04/17/2023 15:20:32 Semi-liquid Final Clostridioides difficile toxin and [id number] strain DNA panel - Stool by [facility] with probe detection 04/17/2023 15:20:32 Negative. No C. difficile toxin B gene DNA detected by PCR (Amplified Probe). Negative Final Performing Location [facility] [address] [place] [address]
--- OUTSIDE RECORDS SUMMARY | 2023-08-14 23:38 | External Medical Summary | Summary of Care ---
Author Name Unknown Organization [facility] Address [address] [place] [address] Phone [phone] Care Team Providers Care Assembler Carbon Brushes Name Role Phone Florentin Calvo DO Primary Care Provider [phone] Reason for Visit * Reason Comments Office Procedure Right ear tube place ment Encounter Details Date Type Department Care Team Description 04/23/2023 Office Visit [facility] [address] [facility] [address] Blair Dupree DO [address] [facility] [place] [address] Chronic DARRON (middle ear effusion), right* Allergies Active Allergy Reactions Severity Noted Date Comments Azithromycin Other (Please comment) 12/04/2021 QTC prolongation at [facility] Celecoxib Hives,Rash High 03/24/2013 Other reaction(s): [...] as of this encounter (statuses as of 04/23/2023) Medications Medication Sig Dispensed Refills Start Date [...] for Wheezing. 15 g 12 06/13/2022 Active Allopurinol 100 MG Oral Tablet (Zyloprim)Indicatio ns:Gout, arthropathy Take 2 Tablets by mouth at bedtime. 60 Tablet 11 10/03/2022 Active Fluticasone-Sal[place]e rol 250-50 MCG/ACT Inhalation Aerosol Powder Breath Activated (Advair Diskus) Inhale 1 Puff by mouth in the morning and 1 Puff before bedtime. 60 Each 2 12/12/2022 Active OneTouch Verio In Vitro Strip (Glucose Blood) Test blood sugars up to 2 times a day E11.9 200 Strip 3 12/20/2022 Active Pantoprazole Sodium 40 MG Oral Tablet Delayed Release (Protonix) Take 1 Tablet by mouth in the morning and 1 Tablet in the evening. 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 90 mL 3 04/01/2023 Active Sotalol HCl 80 MG Oral Tablet (Betapace)Indicatio ns:Paroxysmal atrial fibrillation (HCC) Take 0.5 Tablets by mouth in the morning and 0.5 Tablets before bedtime. 300 Tablet 3 04/10/2023 Active Ofloxacin 0.3 % Otic Solution (Floxin) Administer 5 Drops into ears in the morning and 5 Drops before bedtime. Do all this for 3 days. 5 mL 0 04/23/2023 04/26/2023 Active Hospital, Clinic, or Other Facility Administered [...] as of this encounter (statuses as of 04/23/2023) Active Problems Problem Noted Date S/P mitral valve clip implantation 03/06 Atherosclerosis of [place] coronary arter y without angina pectoris 02/13/2023 Last Assessment & Plan: Continue statin, sotalol. 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 Last Assessment & Plan: Now just [...] as of this encounter (statuses as of 04/23/2023) Resolved Problems Problem Noted Date Resolved Date [...] as of this encounter (statuses as of 04/23/2023) Immunizations Name Administration Dates Next Due COVID-19 mRNA, LNP-s, No Pre serve, 2-Dose Series (Moderna) 06/23/2021,10/25/2020,09/28/2020 COVID-19, LNP-s, No Preserve , Larry-sucrose, Ages 12+ (Pfizer) 04/09/2022 Covid-19, Mrna, Lnp-s, Pf, B ivalent, 30 Mcg, IM, 12 yrs and above ([employer]) 09/10/2022 HEP A - Hepatitis A (Adult [...] Pressure - - Pulse - - Temperature - - Respiratory Rate - - Oxygen Saturation - - Inhaled Oxygen Concentration - - Weight 70.2 kg (154 lb 11.2 oz) 023 8:57 AM EDT Height 165.1 cm (5' 5") 04/23/2023 8:57 AM EDT Body Mass Index 25.74 04/23/2023 8:57 AM EDT documented in this [...] as of this encounter Progress Notes * Blair Dupree, DO - 04/23/2023 9:00 AM EDT Otolaryngology Head and Neck Surgery. 04/23/2023 PROCEDURE NOTE: Informed consent was obtained after explaining the procedure including the risks associated with hearing loss, tympanostomy tube otorrhea, and residual tympanic membrane perforation (incidence of 0.5%). I explained that the tubes usually stay in place for an average of 10-12 months, but that the range is from a few weeks to several years (in some instances). The need to keep the ears dry by usingearplugs when swimming, showering, or bathing was explained. A time out was called by the provider and staff present. The patient was identified and the correct procedure to be done was confirmed thecorrect site was identified, patient is positioned correctly and the appropriate equipment is available. Using the operating microscope, the ears were examined. The ears were cleaned with suction and/or ear instruments. The RIGHT tympanic membrane was anesthetized with topical phenol on a small cotton-tipped applicator. A radial myringotomy was performed. Thin serous fluid was aspirated from the middle ear. A tympanostomy tube was inserted. Floxin Otic Suspension was instilled in the ears. Assessment 82-year-old female with right middle ear effusion Plan: Tube placed as above Floxin drops for 3 days Follow-up with Cheri Castillo PA-C in 2 months for tube check Blair Dupree DO, [place] [facility] Otolaryngology Head and Neck Surgery [place], [place] 04/23/2023 9:21 AM documented in this encounter Nursing Notes * Nadia Valdez LPN - 04/23/2023 9:01 AM EDT Chief Complaint Patient presents with Office Procedure Right ear tube placement documented in this encounter Plan of Treatment Upcoming Encounters Date Type Specialty Care Team Description 3 Hospital Encounter Endoscopy Jana Vieira DO [address] [place] [address] 3 Surgery Endoscopy Jana Vieira DO [address] [place] [address] ESOPHAGOGASTRODUODENOSCOPY (EGD), FLEXIBLE, TRANSORAL, ENDOSCOPIC ULTRASOUND 3 Office Visit Nephrology Rosario Green MD [address] [place] [address] 3 Cardiac Studies Cardiac Studies 3 Appointment Radiology 3 Office Visit Ophthalmology Wilbur Benavides DO [address] [facility] [place] [address] 3 Office Visit Family Medicine Florentin Calvo DO [address] [place] [address] 3 Home Visit Cris at Home Mónica Angeles RN [address] [place] [address] 3 Hospital Encounter Cardiac Rest Room Maid Wilbur Rivera MD [address] [place] [address] 3 Surgery Cardiac Rest Room Maid Wilbur Rivera MD [address] [place] [address] PERCUTANEOUS CLOSURE LEFT ATRIAL APPENDAGE IMPLANT 3 Office Visit Cardiology [place], Cardiac Recovery [facility] [address] [place], [place] [phone] 3 Office Visit Cardiology Stephen Hewitt DO [address] [place] [address] 3 Office Visit Otolaryngology Cheri Castillo PA-C [address] [place] [address] 4 Office Visit Hematology Oncology Nereyda Metz CRNP [address] [facility] [place] [address] 4 Office Visit Gynecology Oncology Chris Peng PA-C [address] [place] [address] Scheduled Procedures Name Priority Associated Diagnoses Date/Ti me ESOPHAGOGASTRODUODENOSCOPY ( EGD), FLEXIBLE, TRANSORAL, ENDOSCOPIC ULTRASOUND Elevated liver function tests 04/30/2023 10:15 AM EDT PERCUTANEOUS CLOSURE LEFT AT RIAL APPENDAGE IMPLANT Paroxysmal atrial fibrillation (HCC) 06/12/2023 12:00 PM EDT Health Maintenance Due Date Last Done Comments DIABETES-EYE EXAM 04/11/2023 04/11/2022, , 04/11/2022, Additional history exists Influenza Vaccine (FLU shot) (#1) 2023 05/15/2022, 05/22/2021, 04/19/2020, Additional history exists CKD PHOS USE SMARTSET 92934 05/01/2023 09/0 02/2022, 04/03/2022, 12/05/2020, Additional history exists HbA1c 08/23/2023 02/21/2023, 01/0 10/2022, 04/03/2022, Additional history exists TSH 09/24/2023 09/24/2022, 01/0 10/2022, 02/12/2022, Additional history exists DIABETES-FOOT EXAM 10/01/2023 10/01/2022, 0 10/26/2021, 12/05/2020, Additional history exists GFR 10/02/2023 04/01/2023, 02/23, 03/07/2023, Additional history exists Albumin/Creatinine Ratio 02/22/2024 023, 05/01/2022, 10/26/2021, Additional history exists CKD HGB USE SMARTSET 20149 04/11/202404/11, 04/11/2023, 04/01/2023, Additional history exists Depression Screening, Annual for Pts 12 and Over 04/18/2024 04/18/2023 DXA Scan 05/07/2025 05/07/2021, 12/24, [...] this encounter Medical Devices Implanted Type Area Malt Liquors Sales Representative Device Identifier Shelf Expiration Date Model / Serial / Lot Cath Thermodilution 6fr - [id number] Implanted:Qty: 1 on 01/24/2023 by Wilbur Rivera MD at [facility] [employer] [id number] 10/15/2024 [id number] / / [id number] Mirtaclip G4 - [id number] Implanted:Qty: 1 on 03/10/2023 at [facility] [employer] 11/19/2023 [id number] / / [id number] documented as of this encounter Visit Diagnoses Diagnosis Paroxysmal atrial fibrillation (HCC)- Primary Atrial fibrillation Chronic DARRON (middle ear effusion), right- Primary Elevated liver function tests Other abnormal blood chemistry Paroxysmal atrial fibrillation (HCC) Atrial fibrillation documented in this encounter Advance Directives Documents on File Type Date Recorded 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
--- OUTSIDE RECORDS SUMMARY | 2023-08-14 23:38 | External Medical Summary | Summary of Care ---
Author Name Unknown Organization [facility] Address [address] [place] [address] Phone [phone] Care Team Providers Care Manager Of Transportation Name Role Phone Grey Calvo DO Primary Care Provider [phone] Reason for Visit * Reason Onset Date Comments Medication Refill 05/01/2023 Encounter Details Date Type Department Care Team Description 05/01/2023 Refill Family Practice [address] [facility] [place] [address] [place] [address] Grey Calvo DO [address] [place], [place] [phone] Allergies Active Allergy Reactions Severity Noted Date [...] as of this encounter (statuses as of 05/05/2023) Medications Medication Sig Dispensed Refills Start Date End Date Status OneTouch Verio w/Device KitIndications:Typ e 2 diabetes mellitus with hemoglobin A1c goal of less than 7.0% ([facility]) Use up to 1 times a [...] bedtime. 60 Each 2 12/12/2022 Active OneTouch Verflorinda In Vitro Strip (Glucose Blood) Test blood [...] (Lipitor)Indicatio ns:PVD (peripheral vascular disease) ([facility]),Type 2 diabetes mellitus with stage 3a chronic kidney disease and hypertension ([facility]) TAKE ONE TABLET BY MOUTH EVERY DAY DIRECTED 100 Tablet 3 03/31/2023 Active Ipratropium [place] 0.03 % Nasal Solution (Atrovent)Indicati ons:Chronic rhinitis [...] 05/05/2023 Active Allopurinol 100 MG Oral Tablet (Zyloprim)Indicati ons:Gout, arthropathy Take 2 Tablets by mouth at bedtime. 180 Tablet 3 05/01/2023 Active Pantoprazole Sodium 40 MG Oral Tablet Delayed Release (Protonix) Take 1 Tablet by mouth in the morning and 1 Tablet in the evening. 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 Denies fever/chills. Exam benign. Likely viral. -Mucinex 1200mg BID ordered x7 days. -Instructed supportive care and to call [facility] if she feels she is worsening, not [...] as of this encounter (statuses as of 05/05/2023) Immunizations Name Administration Dates Next Due COVID-19 [...] or do you have serious difficulty hearing? [place] can hear w/ hearing aid 03/07/2023 Are [...] encounter Miscellaneous Notes * Telephone Encounter - Herminia Patel [facility] - 05/05/2023 10:03 AM EDTSigned Prescriptions: Disp Refills Pantoprazole Sodium 40 MG Oral Tablet Cherie*200 Ta*1 Sig: Take 1 Tablet by mouth in the morning and 1 Tablet in the evening.Authorizing Provider: GREY CALVO User: HERMINIA RENE documented in this encounter Plan of Treatment Upcoming Encounters Date Type Specialty Care Team Description 05/09/2023 Office Visit Nephrology Rosario Green MD [address] [place] [address] 05/14/2023 Cardiac Studies Cardiac Studies 05/20/2023 Appointment Radiology 05/22/2023 Office Visit Ophthalmology Wilbur Benavides DO [address] [place] [address] 05/23/2023 Office Visit Family Medicine Grey Calvo DO [address] [facility] [place] [address] 05/28/2023 Home Visit [facility] at Home Mónica Angeles RN [address] [place] [address] 06/12/2023 Hospital Encounter Cardiac Transportation Lead Wilbur Rivera MD [address] [place] [address] 06/12/2023 Surgery Cardiac Transportation Lead Wilbur Rivera MD [address] [place], [place] [phone] PERCUTANEOUS CLOSURE LEFT ATRIAL APPENDAGE IMPLANT 06/12/2023 Office Visit Cardiology [place], Cardiac Recovery [facility] [address] [place], [place] [phone] 06/17/2023 Office Visit Cardiology Stephen Hewitt, DO [address] [place], [place] [address] 06/26/2023 Office Visit Otolaryngology Cheri Castillo PA-C [address] [place], [place] [address] 07/11/2023 Procedure Only Endoscopy Jana Vieira, DO [address] [place], [place] [address] 10/14/2023 Office Visit Hematology Oncology Nereyda Metz CRNP [address] [facility] [place] [id number] 10/24/2023 Office Visit Gynecology Oncology Chris Peng PA-C [address] [place] [address] Scheduled Procedures Name Priority Associated Diagnoses Date/Ti me PERCUTANEOUS CLOSURE LEFT ATRIAL APPENDAGE IMPLANT Paroxysmal atrial fibrillation (HCC) 06/12/2023 12:00 PM EDT Health Maintenance Due Date Last Done Comments DIABETES-EYE EXAM 04/11/2023 04/11/2022, , 04/11/2022, Additional history exists Influenza Vaccine (FLU shot) (#1) 2023 05/15/2022, 05/22/2021, 04/19/2020, Additional history exists CKD PHOS USE SMARTSET 47726 05/01/2023 09/0 02/2022, 04/03/2022, 12/05/2020, Additional history exists HbA1c 08/23/2023 02/21/2023, 01/0 10/2022, 04/03/2022, Additional history exists TSH 09/24/2023 09/24/2022, 01/0 10/2022, 02/12/2022, Additional history exists Diabetic Foot Exam 10/01/2023 10/01/2022, 0 10/26/2021, 12/05/2020, Additional history exists GFR 10/02/2023 04/01/2023, 02/23, 03/07/2023, Additional history exists Albumin/Creatinine Ratio 02/22/2024 023, 05/01/2022, 10/26/2021, Additional history exists CKD HGB USE SMARTSET 26591 04/11/202404/11, 04/11/2023, 04/01/2023, Additional history exists Depression [...] this encounter Medical Devices Implanted Type Area Dredge Captain Device Identifier Shelf Expiration Date Model / Serial / Lot Cath Thermodilution 6fr - [id number] Implanted:Qty: 1 on 01/24/2023 by Wilbur Rivera MD at [facility] [employer] [id number] 10/15/2024 [id number] / / [id number] Mirtaclip G4 - [id number] Implanted:Qty: 1 on 03/10/2023 at [facility] [employer] 11/19/2023 [id number] / / [id number] documented as of this encounter Advance Directives Documents on File Type Date Recorded Patient Ramp Lead Expl anation Advance Directives and Living Will 11/29/2022 ADVANCE DIRECTIVE / LIVING WILL Power of Clinical Rn Liaison 11/29/2022 POWER OF A TTORNEY Advance Directives and Living Will 10/24/2014 ADVANCE DIRECTIVE / LIVING WILL Power of Clinical Rn Liaison 10/24/2014 POWER OF A TTORNEY Latest [...] File Name Relationship Healthcare Agent [facility] [facility] t (per Health Care Power of Clinical Rn Liaison document) Care Teams Manager Of Transportation Relationship Specialty Start Date End Date Grey Calvo, [address] [place] [address] PCP - General Internal Medicine 03/24/13 documented as of this encounter
--- OUTSIDE RECORDS SUMMARY | 2023-08-14 23:38 | External Medical Summary ---
Author Name Unknown Address Unknown Organization K01[place] [place] [address] [place] [address] Laboratory Report Ordering Provider Test Date Status CJ LAWS 05/09/2023 13:12:59 Final Observation Date Value Abnormality Reference (Units ) Status Uric Acid 05/09/2023 13:12:59 6.1 Above high normal 2. 4-5.7 (mg/dL) Final Performing Location [facility] [place] [address] [place] [address]
--- OUTSIDE RECORDS SUMMARY | 2023-08-14 23:38 | External Medical Summary | Summary of Care ---
Author Name Unknown Organization [facility] Address [address] [place] [address] Phone [phone] Care Team Providers Care Wire Communications Engineer Name Role Phone Florentin Calvo DO Primary Care Provider [phone] Reason for Visit * Reason Comments Follow Up Encounter Details Date Type Department Care Team Description 04/16/2023 Office Visit Cardiology, [facility] [address] [place] [address] Wilbur Rivera MD [address] [place] [address] Paroxysmal atrial fibrillation (HCC)* Allergies Active Allergy Reactions Severity Noted Date Comments Azithromycin Other (Please comment) 12/04/2021 QTC prolongation at [facility] Celecoxib Hives,Rash High 03/24/2013 Other [...] as of this encounter (statuses as of 04/16/2023) Medications Medication Sig Dispensed Refills Start Date [...] 3 08/05/2022 08/05/2023 Active OneTouch Delica Plus [id number] USE 2 TIMES A DAY DIRECTED 200 [...] DIRECTED 100 Tablet 3 03/31/2023 Active Ipratropium Poth 0.03 % Nasal Solution (Atrovent)Indicatio ns:Chronic rhinitis Administer 2 Sprays into nostril in the morning and 2 Sprays before bedtime. 90 mL 3 04/01/2023 Active Sotalol HCl 80 MG Oral Tablet (Betapace)Indicatio ns:Paroxysmal atrial fibrillation (HCC) Take 0.5 Tablets by mouth in the morning and 0.5 Tablets before bedtime. 300 Tablet 3 04/10/2023 Active Hospital, Clinic, or Other Facility Administered [...] as of this encounter (statuses as of 04/16/2023) Active Problems Problem Noted Date S/P mitral valve clip implantation 03/06 Atherosclerosis of wrangell coronary arter y without angina pectoris 02/13/2023 Last Assessment & Plan: Continue statin, sotalol. ASA History of TIA (transient ischemic attac k) 11/29/2022 Last Assessment & Plan: -Recent admission to [facility], presented with numbness of tongue [...] Obstructive sleep apnea of adult 015 Overview: ASSOCIATE PROFESSOR OF ARCHAEOLOGY Last Assessment & Plan: Now just using [...] as of this encounter (statuses as of 04/16/2023) Resolved Problems Problem Noted Date Resolved Date [...] as of this encounter (statuses as of 04/16/2023) Immunizations Name Administration Dates Next Due COVID-19 [...] Past Smokeless Tobacco: Never Tobacco Cessation:Counseling Given: Not Answered Alcohol Use Standard Drinks/Week Comments No 0 (1 standard drink = 0.6 oz pur e alcohol) Food Insecurity Answer Date Recorded Within the past 12 months, y ou worried that your food would run out before you got money to buy more. Never true 04/01/2023 Within the past 12 months, t he food you bought just didn't last and you didn't have money to get more. Never true 04/01/2023 Sex Assigned at Date Recorded Female 12/17/2018 11:06 AM EDT Job Start Date Occupation Industry Not on file Not on file Not on file documented as of this encounter Last Filed Vital Signs Vital Sign Reading Time Taken Comments Blood Pressure 126/70 04/16/2023 2:27 PM EDT Pulse 60 04/16/2023 2:27 PM EDT Temperature - - Respiratory Rate 12 04/16/2023 2:27 PM EDT Oxygen Saturation 95% 04/16/2023 2:27 PM EDT Inhaled Oxygen Concentration - - Weight 71.7 kg (158 lb 1.6 oz) 04/16/2023 2:27 P M EDT Height - - Body Mass Index 26.31 04/01/2023 11:16 AM EDT documented in this encounter Functional Status Functional Status Response Date of Assess ment Are you deaf or do you have serious difficulty hearing? No-MINTO can hear w/ hearing aid 03/07/2023 Are [...] of this encounter Progress Notes * Wilbur Rivera MD - 04/16/2023 3:13 PM EDT I have reviewed the advanced practitioner documentation and agree. I saw and evaluated the patient on date of service referenced in note and have performed the following medically appropriate historyand/or exam: 82 year old female s/p Mitraclip with excellent result She has known Afib but has had issues with GI bleeding with anticoagulants. She is a good candidate for watchman. I gave her our experience and talked to them about the procedure. She is contemplative and will get back to us with a decision. Wilbur Rivera MD MPH Interventional Cardiology Pager: [phone] 04/16/23 3:15 PM * JESS Gonzalez - 04/16/2023 2:31 PM EDT Cardiology Valve Clinic Note 04/16/2023 Primary Normalizer: Dr. 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 QZP4CO5-PDDc score of 7 (age 2, female, CHF,DM, TIA 2)- Not on AC due to severe GIB in the past Hx of TIA- Eliquis restarted 10/2022- discontinued due to significant anemia 11/2022 Hypertension Aneurysm of the left carotid artery AV malformations CKD stage 3 Diabetes Moderate persistent asthma Kinebock's disease Hypothyroidism Anemia, receiving iron infusions HPI: Inga Barakat is a 82 year old female being seen today in valve clinic for evaluation of WatchmanDevice. Patient has a history of severe MR/TR. Underwent a michael clip on 03/06/2023. Here today accompanied by her son. Patient has a history of paroxysmal atrial fibrillation and anemia. She had a severe GI bleed in the past while on Eliquis. She has also had multiple AV malformations.Denies any further bleeding issues. She reports feeling "fantastic" since her mitraclip. REVIEW OF SYSTEMS: See HPI for pertinent positives. All others negative other than those noted in the HPI. CONSTITUTIONAL: No change in weight, No weakness, No fatigue and No fevers, No sweats or chills. PULMONARY: No cough, sputum, or hemoptysis, No wheezing, No shortness or breath and No recent change in breathing. CARDIOVASCULAR: No chest pain, No dyspnea on exertion, No edema, No palpitations and No syncope. GASTROINTESTINAL: No abdominal pain, No change in bowel habits, No significant heartburn, No nausea, No vomiting, No diarrhea, No constipation, No blood in stools or black tarry stools. No dysphagia. HEMATOLOGIC: + abnormal bleeding and No bruising. NEUROLOGICAL: Normal balance, No headaches and No weakness. Current Outpatient Medications Medication Sig Dispense Refill [...] as needed for Wheezing. 15 g 12 Allopurinol 100 MG Oral Tablet (Zyloprim) Take 2 Tablets by mouth at bedtime. 60 Tablet 11 Fluticasone-Salmeterol 250-50 MCG/ACT Inhalation Aerosol Powder Breath Activated (Advair Diskus) Inhale 1 Puff by mouth in the morning and 1 Puff before bedtime. 60 Each 2 Pantoprazole Sodium 40 MG Oral Tablet Delayed Release (Protonix) Take 1 Tablet by mouth in the morning and 1 Tablet in the evening. 60 Tablet 5 Vitamin B-12 100 MCG Oral Tablet [...] MOUTH EVERY DAY DIRECTED 100Tablet 3 Ipratropium Poth 0.03 % Nasal Solution (Atrovent) Administer 2 Sprays into nostril in the morning and 2 Sprays before bedtime. 90 mL 3 Sotalol HCl 80 MG Oral Tablet (Betapace) Take 0.5 Tablets by mouth in the morning and 0.5 Tablets before bedtime. 300 Tablet 3 [employer] w/Device Kit Use up to 1 times a day. E11.9 1 Kit 0 [employer] In Vitro Strip (Glucose Blood) Test blood sugars up to 2 times a day E11.9 200 Strip3 [employer] Delica Plus [id number] USE 2 TIMES A DAY DIRECTED 200 Each 3 Current Facility-Administered Medications Medication Dose Route Frequency Provider Last Rate Last Admin Albuterol Sulfate (Proventil) (2.5 MG/3ML) 0.083% inhalation solution 2.5 mg 2.5 mg Nebulizer PRN Abigailpoonam Goncalves PA-C Albuterol Sulfate (Proventil) (5 MG/ML) 0.5% *conc* inhalation solution 2.5 mg 2.5 mg Nebulizer PRNRebpoonam Goncalves PA-C Albuterol Sulfate (Proventil) (5 MG/ML) 0.5% *conc* inhalation solution 2.5 mg 2.5 mg Nebulizer PRNSalanisJESS Quintanilla Albuterol Sulfate (Proventil) (2.5 MG/3ML) 0.083% inhalation solution 2.5 mg 2.5 mg Nebulizer PRN Veronique JESS Meneses 2.5 mg at 10/31/22 1441 Review of [...] Azithromycin Other (Please comment) QTC prolongation at [facility] Nickel Swelling Other reaction(s): Unknown 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 Obstructive sleep apnea of adult 09/09/2014 ASSOCIATE PROFESSOR OF ARCHAEOLOGY Pleural effusion Pulmonary arterial hypertension ([facility]) Pure hypercholesterolemia 07/02/2021 PVD (peripheral vascular disease) ([facility]) 05/15/2022 Retinopathy Secondary hyperparathyroidism, renal ([facility]) 12/17/2018 Severe mitral valve regurgitation 10/30/2022 Severe tricuspid regurgitation 11/18/2022 Spinal stenosis 07/2002 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 claudication 03/24/2013 Vertigo 03/24/2013 Past Surgical History: Procedure Laterality Date COLONOSCOPY, DIAGNOSTIC (RECTUM) 10/12/2014 inflammatory tissue on bx, diverticulosis/[facility] COLONOSCOPY, DIAGNOSTIC (RECTUM) 01/05/2016 diverticulosis, multiple non-bleeding colonic angioectasias COLONOSCOPY, DIAGNOSTIC (RECTUM) 04/15/2016 angiodysplastic lesion, diverticulosis/COLONOSCOPY FLEXIBLE PROXIMAL DIAGNOSTIC performed by Izzy Stone MD at ENDOSCOPY [facility] COLONOSCOPY, DIAGNOSTIC (RECTUM) 11/10/2020 Hemorrhoids, multi polyps, diverticulosis in sigmoid colon/ biopsy show adenomatous polyp/ COLONOSCOPY FLEXIBLE PROXIMAL DIAGNOSTIC performed by Maine Stone MD at ENDOSCOPY [facility] COLONOSCOPY, DIAGNOSTIC (RECTUM) 03/11/2022 poor prep / [facility] CORONARY ANGIOGRAPHY W/RIGHT+LEFT CATH Right 01/24/2023 CORONARY ANGIOGRAPHY W/RIGHT+LEFT CATH performed by Wilbur Rivera MD at [facility] CYSTOSCOPY 06/2012 EGD, FLEXIBLE, DIAGNOSTIC 10/12/2014 normal bx, HH/[facility] EGD, FLEXIBLE, DIAGNOSTIC 01/05/2016 ESOPHAGOGASTRODUODENOSCOPY (EGD), FLEXIBLE, TRANSORAL, DIAGNOSTIC performed by Maine Stone MD at ENDOSCOPY [facility] EGD, FLEXIBLE, DIAGNOSTIC 03/11/2022 Multiple small non-bleeding fundic gland polyps / [facility] EGD, FLEXIBLE, DIAGNOSTIC 12/09/2022 mild-mod inflammation / [facility] LAPAROSCOPY TOTAL HYSTX, UTERUS 250GM OR LESS TUBE/OVARY N/A 02/22/2020 ROBOTIC LAPAROSCOPIC HYSTERECTOMY REMOVAL TUBES AND OVARIES FOR UTERUS 250GM OR LESS performed by Florentin Perez MD at OR [facility] [place] LAPAROSCOPY; CHOLECYSTECTOMY N/A 06/06/2020 LIGATE/CUT OVIDUCT(S) MAMMOGRAM BREAST NEEDLE BIOPSY CORE LEFT Left 09/19/2015 benign NECK SPINE FUSION (CERV, BELOW C2) 1993 1999,2011 PATIENT EDU, LUMBAR LAMINECTOMY 2001 1996 too NM TONSILLECTOMY PRIMARY/SECONDARY LESS THAN AGE 12 Bilateral REPAIR RUPTURED ROTATOR CUFF, ACUTE Left 08/08/2015 SINUS SURGERY PROCEDURE NEC 1994 TRANSCATH REPAIR MITRAL VALVE, INITIAL Bilateral 03/06/2023 TRANSCATHETER MITRAL VALVE REPAIR performed by Wilbur Rivera MD at [facility] [place] Family History Problem Relation Age of Onset Neurological Disorder Mother parkinson Eye Problems Mother glaucoma Diabetes Father 30 1967 Cancer Brother brain, lung Eye Problems None denies fm: Blindness, AMD, RD Stomach cancer Grandmother (Maternal) Social History Socioeconomic History Marital status: Spouse name: Not on file Number of children: Not on file Years of education: Not on file Highest education level: Not on file Occupational History Not on file Tobacco Use Smoking status: Former Packs/day: 1.25 Years: 18.00 Pack years: 22.50 Types: Cigarettes Quit date: 12/29/1978 Years since quittin.3 Passive exposure: Past Smokeless tobacco: Never Vaping Use Vaping Use: Never used Substance and Sexual Activity Alcohol use: No Drug use: No Sexual activity: Not Currently Partners: Male control/protection: Surgical Comment: hysterectomy Other Topics Concern Not on file Social History Narrative Not on file Social Determinants of Health Financial Resource Strain: Not on file Food Insecurity: No Food Insecurity Worried About Running Out of Food in the Last Year: Never true Ran Out of Food in the Last Year: Never true Transportation Needs: Not on file Physical Activity: Not on file Stress: Not on file Social Connections: Not on file Intimate Partner Violence: Not on file Housing Stability: Not on file PHYSICAL EXAM: BP 126/70 (BP Site: Left Arm, BP Position: Sitting, BP Cuff Size: Large) | Pulse 60 | Resp 12 | Wt 71.7 kg (158 lb 1.6 oz) | SpO2 95% | BMI 26.31 kg/m | BSA 1.81 m Wt Readings from Last 3 Encounters: 04/16/23 71.7 kg (158 lb 1.6 oz) 04/11/23 71.7 kg (158 lb 1.6 oz) 04/10/23 70.5 kg (155 lb 8 oz) General: No acute distress. A+Ox3. HEENT: Normocephalic. Atraumatic. PERRL. EOMI. Conjunctiva and sclera clear. NECK: No carotid bruits. No JVD. Carotid upstrokes are brisk. Heart: RRR. S1 and S2 noted. +1/6 systolic murmur. No rubs or gallops. PMI non displaced. Lungs: Clear to auscultation. No wheezes.No rhonchi. No rales. Abdomen: Normal bowel sounds. Soft. Nontender. No masses or organomegaly. No abdominal bruits. Extremities: No edema. No clubbing or cyanosis. Pulses: radial=2/4, posterior tibial=2/4, dorsalis pedis = 2/4. NEURO: No focal deficits. PSYCH: Appropriate affect and insight. DATA: Labs & Imaging Reviewed Below: Device Clinic 03/27/2023 0% AFIB Raymond Battery 11.25 years Echo 09/2022 The examination is adequate to evaluate the referral indication. The LV wall thickness is mildly increased (concentric). The left ventricular wall motion is normal. Calculated LV ejection Fraction = 65% (bi-plane method of discs). The right ventricle appears to be at least mildly dilated on technically limited visualization. The right ventricular systolic function is mildly reduced . At least mild prolapse of the anterior mitral valve leaflet is present. No Severe mitral regurgitation is present. The mitral regurgitation jet is eccentric and posteriorly directed impinging on the posterior wall of the left atrium. Severe tricuspid regurgitation is present. Dilated IVC with reduced collapsability with sniff indicates an elevated right atrial pressure of 15 mmHg. Severe pulmonary hypertension is present. The estimated pulmonary artery systolic pressure is 76 mm Hg. Compared to the prior study dated 08/01/2022, ongoing severe pulmonary hypertension is present IMPRESSION/PLAN: 1. Paroxysmal atrial fibrillation (HCC) -Paroxysmal atrial fibrillation, on sotalol. Raymond of 0.% per ppm interrogation 03/2023. -Zio monitor 06/04/2022 demonstrated paroxysmal atrial fibrillation. -[id number] score of 7 (age 2, female, CHF,DM, TIA 2)- prior history of GI bleed on anticoagulation -Doing well s/p Mitraclip. -Patient would like to think about the Watchman Device and will let us know if she would like to proceed. Patient care was discussed/coordinated with Dr. Rivera. The patient agrees to the above plan and will call with additional questions or concerns. All questions were answered to the patients satisfaction. ER with all emergencies advised. JESS Gonzalez Cardiology, [address] [address] I spent a total of 50 minutes on the date of service in preparation, delivery, and documentation ofthe care provided to Inga Barakat excluding any time spent in the performance of separately billed services. This chart was completed in part utilizing [employer] Speech Voice Recognition Software. Grammatical errors, random [...] documented in this encounter Nursing Notes * Alanna Lerma CMA - 04/16/2023 2:26 PM EDT Examination Room: 11 Name: Inga Barakat Date of : (1940). Reason for Visit: f/u from Watchman procedure Interim Hospitalization(s): none Problems/Concerns: denies Chest Pain/SOB: Denies CP. Reports improvement in SOB [facility] Discussed: No My TheRouteBoxer is a way you can talk to your provider online through e-mail. Would you like to sign up? I can activate it for you? ALREADY ACTIVE Patient was instructed to not get up on the exam table until directed and assisted by their provider; patient is to remain seated in the chair/ wheelchair/ exam table for fall prevention and safety reasons. Patient is aware to have assistance to step down off exam table with personnel. Patient voiced full comprehension of instructions. documented in this encounter Plan of Treatment Upcoming Encounters Date Type Specialty Care Team Description 3 Office Visit Family Medicine Florentin Calvo, DO [address] [place] [address] 3 Office Visit Otolaryngology Blair Dupree, DO [address] [place], [place] [address] 3 Hospital Encounter Endoscopy Jana Vieira, DO [address] [place] [address] 3 Surgery Endoscopy Jana Vieira, DO [address] [place] [address] ESOPHAGOGASTRODUODENOSCOPY (EGD), FLEXIBLE, TRANSORAL, ENDOSCOPIC ULTRASOUND 3 Office Visit Nephrology Rosario Green MD [address] [place] [address] 3 Cardiac Studies Cardiac Studies 3 Office Visit Ophthalmology Wilbur Benavides, DO [address] [facility], [place] [address] 3 Office Visit Family Medicine Florentin Calvo, DO [address] [place] [address] 3 Home Visit [facility] Mónica Angeles RN [address] [place] [address] 3 Office Visit Cardiology Stephen Hewitt, DO [address] [place], [place] [address] 4 Office Visit Hematology Oncology Nereyda Metz CRNP [address] [facility] [place] [id number] 4 Office Visit Gynecology Oncology Chris Peng PA-C [address] [facility] [place] [address] Scheduled Procedures Name Priority Associated Diagnoses Date/Ti me ESOPHAGOGASTRODUODENOSCOPY ( EGD), FLEXIBLE, TRANSORAL, ENDOSCOPIC ULTRASOUND Elevated liver function tests 04/30/2023 10:15 AM EDT Health Maintenance Due Date Last Done Comments DIABETES-EYE EXAM 04/11/2023 04/11/2022, , 04/11/2022, Additional history exists Influenza Vaccine (FLU shot) (#1) 2023 05/15/2022, 05/22/2021, 04/19/2020, Additional history exists CKD PHOS USE SMARTSET 51052 05/01/2023 09/0 02/2022, 04/03/2022, 12/05/2020, Additional history exists HbA1c 08/23/2023 02/21/2023, 01/0 10/2022, 04/03/2022, Additional history exists TSH 09/24/2023 09/24/2022, 01/0 10/2022, 02/12/2022, Additional history exists DIABETES-FOOT EXAM 10/01/2023 10/01/2022, 0 10/26/2021, 12/05/2020, Additional history exists GFR 10/02/2023 04/01/2023, 0708/2022, 03/07/2023, Additional history exists Albumin/Creatinine Ratio 02/22/2024 023, 05/01/2022, 10/26/2021, Additional history exists Depression Screening, Annual for Pts 12 and Over 04/01/2024 04/01/2023 CKD HGB USE SMARTSET 14616 04/11/202404/11, 04/11/2023, 04/01/2023, Additional history exists DXA Scan 05/07/2025 05/07/2021, [...] this encounter Medical Devices Implanted Type Area Twine Reeling Machine Operator Device Identifier Shelf Expiration Date Model / Serial / Lot Cath Thermodilution 6fr - [id number] Implanted:Qty: 1 on 01/24/2023 by Wilbur Rivera MD at [facility] [employer] [id number] 10/15/2024 [id number] / / [id number] Mirtaclip G4 - [id number] Implanted:Qty: 1 on 03/10/2023 at [facility] [place] [facility] [employer] 11/19/2023 [id number] / / [id number] documented as of this encounter Visit Diagnoses Diagnosis Paroxysmal atrial fibrillation (HCC)- Primary Atrial fibrillation Elevated liver function tests Other abnormal blood chemistry documented in this encounter Advance Directives Documents on File Type Date Recorded Patient Home Energy Rater Expl anation Advance Directives and Living Will 11/29/2022 ADVANCE DIRECTIVE / LIVING WILL Power of Rug Cleaner Helper 11/29/2022 POWER OF A TTORNEY Advance Directives and Living Will 10/24/2014 ADVANCE DIRECTIVE / LIVING WILL Power of Rug Cleaner Helper 10/24/2014 POWER OF A TTORNEY Latest [...] File Name Relationship Healthcare Agent [facility] Communication [facility] Adult Child Health Care Agen t (per Health Care Power of Rug Cleaner Helper document) Care Teams Wire Communications Engineer Relationship Specialty Start Date End Date Florentin Calvo, DO [address] [place] [address] PCP - General Internal Medicine 03/24/13 documented as of this encounter
--- OUTSIDE RECORDS SUMMARY | 2023-08-14 23:38 | External Medical Summary | Summary of Care ---
Author Name Unknown Organization [facility] Address [address] [place] [address] Phone [phone] Care Team Providers Care Hand Potter Name Role Phone Florentin Calvo DO Primary Care Provider [phone] Reason for Visit * Reason Comments Outpatient Testing Encounter Details Date Type Department Care Team Description 04/17/2023 Laboratory Laboratory, [facility] [address] [place] [address] [place], Specimen Drop Off [facility] [address] [place] [address] Dark stools; Diarrhea, unspecified type Allergies Active Allergy Reactions Severity Noted Date Comments Azithromycin Other (Please comment) 12/04/2021 QTC prolongation at [facility] Celecoxib Hives,Rash High 03/24/2013 Other reaction(s): Rash/Hives/Itching. [...] as of this encounter (statuses as of 04/17/2023) Medications Medication Sig Dispensed Refills Start Date End Date Status OneTouch Verio w/Device KitIndications:Type 2 diabetes mellitus with hemoglobin A1c goal of less than 7.0% ([facility]) Use up to 1 times a day. [...] 3 08/05/2022 08/05/2023 Active OneTouch Delica Plus [id number] USE 2 TIMES A DAY DIRECTED 200 [...] DIRECTED 100 Tablet 3 03/31/2023 Active Ipratropium [place] 0.03 % Nasal Solution (Atrovent)Indicatio ns:Chronic rhinitis [...] as of this encounter (statuses as of 04/17/2023) Active Problems Problem Noted Date S/P mitral valve clip implantation 03/06 Atherosclerosis of [place] coronary arter y without angina pectoris 02/13/2023 Last Assessment & Plan: Continue statin, sotalol. ASA History of TIA (transient ischemic attac k) 11/29/2022 Last Assessment & Plan: -Recent admission to [facility], presented with numbness of tongue and slurred [...] Obstructive sleep apnea of adult 015 Overview: MEDICATION TECH Last Assessment & Plan: Now just using [...] as of this encounter (statuses as of 04/17/2023) Resolved Problems Problem Noted Date Resolved Date [...] as of this encounter (statuses as of 04/17/2023) Immunizations Name Administration Dates Next Due COVID-19 [...] Visit Family Medicine Florentin Calvo, DO [address] [place] [address] 3 Office Visit Otolaryngology Blair Dupree, DO [address] [facility] [address] 3 Hospital Encounter Endoscopy Jana Vieira, DO [address] [place] [address] 3 Surgery Endoscopy Jana Vieira, DO [address] [place] [address] ESOPHAGOGASTRODUODENOSCOPY (EGD), FLEXIBLE, TRANSORAL, ENDOSCOPIC ULTRASOUND 3 Office Visit Nephrology Rosario Green MD [address] [place] [address] [place] [address] 3 Cardiac Studies Cardiac Studies 3 Office Visit Ophthalmology Wilbur Benavides, DO [address] [place] [address] 3 Office Visit Family Medicine Florentin Calvo, DO [address] [place] [address] 3 Home Visit [facility] Mónica Angeles RN [address] [place] [address] 3 Office Visit Cardiology Stephen Hewitt, DO [address] [place] [address] 4 Office Visit Hematology Oncology Isaías NereydaJESS Galindo [address] [place] [address] 4 Office Visit Gynecology Oncology Chris Peng PA-C [address] [place] [address] Pending Results Name Type Priority Associated Diagnoses Date /Time REGIONAL PARASITE ANTIGEN SCREEN Lab Routine Dark stools Diarrhea, unspecified type 04/17/2023 3:19 PM EDT GASTROINTESTINAL PATHOGEN PANEL, STOOL Lab Routine Dark stools Diarrhea, unspecified type 04/17/2023 3:20 PM EDT GASTROINTESTINAL PATHOGEN PANEL PCR Lab Routine Dark stools Diarrhea, unspecified type 04/17/2023 3:20 PM EDT GASTROINTESTINAL PATHOGEN PANEL CULTURE Lab Routine Dark stools Diarrhea, unspecified type 04/17/2023 3:20 PM EDT CLOSTRIDIUM DIFFICILE, PCR Lab Routine Dark stools Diarrhea, unspecified type 04/17/2023 3:20 PM EDT Scheduled Procedures Name Priority Associated Diagnoses Date/Ti ok ESOPHAGOGASTRODUODENOSCOPY ( EGD), FLEXIBLE, TRANSORAL, ENDOSCOPIC ULTRASOUND Elevated liver function tests 04/30/2023 10:15 AM EDT Health Maintenance Due Date Last Done Comments DIABETES-EYE EXAM 04/11/2023 04/11/2022, , 04/11/2022, Additional history exists Influenza Vaccine (FLU shot) (#1) 2023 05/15/2022, 05/22/2021, 04/19/2020, Additional history exists CKD PHOS USE SMARTSET 85282 05/01/2023 0902/2022, 04/03/2022, 12/05/2020, Additional history exists HbA1c 08/23/2023 02/21/2023, 10/2022, 04/03/2022, Additional history exists TSH 09/24/2023 09/24/2022, 01/0 10/2022, 02/12/2022, Additional history exists DIABETES-FOOT EXAM 10/01/2023 10/01/2022, 0 10/26/2021, 12/05/2020, Additional history exists GFR 10/02/2023 04/01/2023, 02/23, 03/07/2023, Additional history exists Albumin/Creatinine Ratio 02/22/2024 023, 05/01/2022, 10/26/2021, Additional history exists Depression Screening, Annual for Pts 12 and Over 04/01/2024 04/01/2023 CKD HGB USE SMARTSET 90087 04/11/202404/11, 04/11/2023, 04/01/2023, Additional history exists DXA [...] this encounter Medical Devices Implanted Type Area Build Master Device Identifier Shelf Expiration Date Model / Serial / Lot Cath Thermodilution 6fr - [id number] Implanted:Qty: 1 on 01/24/2023 by Wilbur Rivera MD at [facility] [employer] [id number] 10/15/2024 [id number] / / [id number] Mirtaclip G4 - [id number] Implanted:Qty: 1 on 03/10/2023 at [facility] [place] [employer] 11/19/2023 [id number] / / [id number] documented as of this encounter Visit Diagnoses Diagnosis Dark stools Nonspecific abnormal finding in stool contents Diarrhea, unspecified type Elevated liver function tests Other abnormal blood chemistry documented in this encounter Additional Health Concerns Infection Onset Date Last Indicated Resolved Time Gastrointestinal Rule-Out 04/17/2023 04/17/2023 C. difficile Rule-Out 04/17/2023 04/17/2023 documented as of this encounter Advance Directives Documents on File Type Date Recorded Patient Tub Puller Expl anation Advance Directives and Living Will 11/29/2022 ADVANCE DIRECTIVE / LIVING WILL Power of Consulting Services Associate 11/29/2022 POWER OF A TTORNEY Advance Directives and Living Will 10/24/2014 ADVANCE DIRECTIVE / LIVING WILL Power of Consulting Services Associate 10/24/2014 POWER OF A TTORNEY Latest Code [...] Name Relationship Healthcare Agent [facility] p Communication Bright [facility] Adult Child Health Care Agen t (per Health Care Power of Consulting Services Associate document) Care Teams Hand Potter Relationship Specialty Start Date End Date Florentin Calvo, [address] [place] [address] PCP - General Internal Medicine 03/24/13 documented as of this encounter
--- OUTSIDE RECORDS SUMMARY | 2023-08-14 23:38 | External Medical Summary ---
Author Name Unknown Address Unknown Organization [id number]:[facility] - [address] [place] [address] Laboratory Report Ordering Provider Test Date Status SUDHIR LILLYANDRES 04/17/2023 15:20:17 Final Observation Date Value Abnormality Reference (Units) Status Bacteria identified in Specimen by Culture 04/17/2023 15:20:17 No Aeromonas species or Plesiomonas species isolated. Final Test: Gastrointestinal Patho gen Panel Culture
Specimen Source: Stool
Specimen Type: Stool
Specimen Date: 04/17/2023 3:20 PM
Result Date: 04/20/2023 12:01 PM
Result Status: Final result
Resulting Lab: [facility]
[address]
[place] [address]

CULTURE

No Aeromonas species or Plesiomonas species isolated.

null Performing Location [facility] [address] [facility] [address]
--- OUTSIDE RECORDS SUMMARY | 2023-08-14 23:38 | External Medical Summary | Summary of Care ---
Author Name Unknown Organization [facility] Address [address] [place] [address] Phone [phone] Care Team Providers Care Hvac Tech Name Role Phone Florentin Calvo DO Primary Care Provider [phone] Reason for Visit * Reason Comments Follow Up Encounter Details Date Type Department Care Team Description 04/18/2023 Office Visit Family Practice [address] [place] [address] [address] [place] [address] Florentin Calvo DO [address] [place] [address] Paroxysmal atrial fibrillation (HCC)*; Type 2 diabetes mellitus with stage 3b chronic kidney disease, without long-term current use of insulin (HCC); Chronic diastolic CHF (congestive heart failure) (HCC); Acquired hypothyroidism; Displacement of cervical intervertebral disc without myelopathy; Tremor; Current moderate episode of major depressive disorder without prior episode (HCC); Moderate persistent asthma without complication; Cardiac pacemaker in situ; History of endometrial cancer; Severe tricuspid regurgitation; Atherosclerosis of hoh coronary artery of hoh heart without angina pectoris; S/P mitral valve clip implantation Allergies Active Allergy Reactions Severity Noted Date Comments Azithromycin Other (Please comment) 12/04/2021 QTC prolongation at [facility] Celecoxib Hives,Rash High 03/24/2013 [...] as of this encounter (statuses as of 04/21/2023) Medications Medication Sig Dispensed Refills Start Date End Date Status OneTouch Ver w/Device KitIndications:Type 2 diabetes mellitus with hemoglobin A1c goal of less than 7.0% ([facility]) Use up to 1 times a [...] 3 08/05/2022 08/05/2023 Active OneTouch Delica Plus [id number] USE 2 TIMES A DAY DIRECTED 200 [...] Tablet (Lipitor)Indication s:PVD (peripheral vascular disease) ([facility]),Type 2 diabetes mellitus with stage 3a chronic kidney disease and hypertension (HCC) TAKE ONE TABLET BY MOUTH EVERY DAY DIRECTED 100 Tablet 3 03/31/2023 Active Ipratropium Monon 0.03 % Nasal Solution (Atrovent)Indicatio ns:Chronic rhinitis [...] as of this encounter (statuses as of 04/21/2023) Active Problems Problem Noted Date S/P mitral valve clip implantation 03/06 Atherosclerosis of hoh coronary arter y without angina pectoris 02/13/2023 Last Assessment & Plan: Continue statin, sotalol. 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 Last Assessment & Plan: Now just [...] as of this encounter (statuses as of 04/21/2023) Resolved Problems Problem Noted Date Resolved Date Viral upper respiratory tract infection 11/30/1912/05/2022 Last Assessment & Plan: -Cough for a [...] as of this encounter (statuses as of 04/21/2023) Immunizations Name Administration Dates Next Due COVID-19 mRNA, LNP-s, No Pre serve, 2-Dose Series (Moderna) 06/23/2021,10/25/2020,09/28/2020 COVID-19, LNP-s, No Preserve , Larry-sucrose, Ages 12+ (Pfizer) 04/09/2022 Covid-19, Mrna, Lnp-s, Pf, B ivalent, 30 Mcg, IM, 12 yrs and above (17u.cn) 09/10/2022 HEP A - Hepatitis A (Adult [...] Sign Reading Time Taken Comments Blood Pressure 106/60 04/18/2023 4:09 PM EDT Pulse 81 04/18/2023 4:09 PM EDT Temperature 36.1 C (96.9 F) 04/18/2023 4:09 PM ED T Respiratory Rate - - Oxygen Saturation 96% 04/18/2023 4:09 PM EDT Inhaled Oxygen Concentration - - Weight 70.6 kg (155 lb 9.6 oz) 04/18/2023 4:09 P M EDT Height - - Body Mass Index 25.89 04/01/2023 11:16 AM EDT documented in this encounter Functional Status Functional Status Response Date of Assess ment Are you deaf or do you have serious difficulty hearing? No-NELSON LAGOON can hear w/ hearing aid 03/07/2023 Are [...] this encounter Progress Notes * Florentin Calvo, DO - 04/21/2023 7:46 AM EDT SUBJECTIVE: Inga Barakat is a 82 year old female. Chief Complaint Patient presents with Follow Up HPI: Patient is an 82 year old female with a history of Atrial Fibrillation, Pacemaker Implant, Severe Mitral Valve Regurgitation repaired with Mitral Valve Clip, Severe Tricuspid Valve Regurgitation, Pulmonary HTN, CKD stage III, Lumnar Spinal Stenosis, PVD of the right lower extremity, Depression, Cervical Spinal Fusion, Asthma, Essential Tremor, Adenocarcinoma of the Uterus treated with Hysterectomy, Iron Deficiency Anemia, Chronic Diastolic CHF, and bilateral hearing loss that is seen for followup. No chest pain or shortness of breath are present. Weight is stable and appetite is fair. Patient Active Problem List Diagnosis Code Type 2 diabetes mellitus with hemoglobin A1c goal of less than 7.0% ([facility]) E11.9 Vertigo R42 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 claudication M48.061 Hypothyroidism E03.9 Displacement of cervical intervertebral disc without myelopathy M50.20 Meniere's disease H81.09 Paroxysmal atrial fibrillation ([facility]) I48.0 Obstructive sleep apnea of adult G47.33 Tremor R25.1 Iron deficiency anemia D50.9 Angiodysplasia of colon with hemorrhage K55.21 Acquired renal cyst N28.1 Controlled substance agreement signed Z79.899 Type 2 diabetes mellitus with polyneuropathy ([facility]) E11.42 Secondary hyperparathyroidism, renal ([facility]) N25.81 Pulmonary hypertension ([facility]) I27.20 Current moderate episode of major depressive disorder without prior episode ([facility]) F32.1 Moderate persistent asthma without complication J45.40 Gastro-esophageal reflux disease without esophagitis K21.9 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 ([facility]) E11.319 Pure hypercholesterolemia E78.00 Aneurysm of left carotid artery ([facility]) I72.0 Aortic atherosclerosis ([facility]) I70.0 Chronic kidney disease, stage 3b ([facility]) N18.32 PVD (peripheral vascular disease) ([facility]) I73.9 Chronic diastolic CHF (congestive heart failure) ([facility]) I50.32 Type 2 diabetes mellitus with stage 3b chronic kidney disease, without long-term current use of insulin ([facility]) E11.22, N18.32 Cardiac pacemaker in situ Z95.0 History of endometrial cancer Z85.42 Normocytic anemia D64.9 Primary osteoarthritis of right knee M17.11 Severe tricuspid regurgitation I07.1 History of TIA (transient ischemic attack) Z86.73 Atherosclerosis of hoh coronary artery without angina pectoris I25.10 S/P [...] MOUTH EVERY DAY DIRECTED 100Tablet 3 Ipratropium Monon 0.03 % Nasal Solution (Atrovent) Administer 2 Sprays into nostril in the morning and 2 Sprays before bedtime. 90 mL 3 Sotalol HCl 80 MG Oral Tablet (Betapace) Take 0.5 Tablets by mouth in the morning and 0.5 Tablets before bedtime. 300 Tablet 3 EvntLive w/Device Kit Use up to 1 times a day. E11.9 1 Kit 0 SecretBuildersuch Clinithink In Vitro Strip (Glucose Blood) Test blood sugars up to 2 times a day E11.9 200 Strip3 [employer] Delica Plus [id number] USE 2 TIMES A DAY DIRECTED 200 Each 3 Current Facility-Administered Medications Medication Dose Route Frequency Provider Last Rate Last Admin Albuterol Sulfate (Proventil) (2.5 MG/3ML) 0.083% inhalation solution 2.5 mg 2.5 mg Nebulizer PRN Abigail Goncalves PA-C Albuterol Sulfate (Proventil) (5 MG/ML) 0.5% *conc* inhalation solution 2.5 mg 2.5 mg Nebulizer PRNRanjali Goncalves PA-C Albuterol Sulfate (Proventil) (5 MG/ML) 0.5% *conc* inhalation solution 2.5 mg 2.5 mg Nebulizer PRNShipolito JESS Meneses Albuterol Sulfate (Proventil) (2.5 MG/3ML) 0.083% inhalation solution 2.5 mg 2.5 mg Nebulizer PRN Veronique JESS Meneses 2.5 mg at 10/31/22 1441 The patient's medication list was reviewed and updated as needed. 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 Pleural effusion Pulmonary arterial hypertension ([facility]) Pure hypercholesterolemia 07/02/2021 PVD (peripheral vascular disease) ([facility]) 05/15/2022 Retinopathy Secondary hyperparathyroidism, renal ([facility]) 12/17/2018 Severe mitral valve regurgitation 10/30/2022 Severe tricuspid regurgitation 11/18/2022 Spinal stenosis 07/2002 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 claudication 03/24/2013 Vertigo 03/24/2013 Past Surgical History: Procedure Laterality Date COLONOSCOPY, DIAGNOSTIC (RECTUM) 10/12/2014 inflammatory tissue on bx, diverticulosis/[facility] COLONOSCOPY, DIAGNOSTIC (RECTUM) 01/05/2016 diverticulosis, multiple non-bleeding colonic angioectasias COLONOSCOPY, DIAGNOSTIC (RECTUM) 04/15/2016 angiodysplastic lesion, diverticulosis/COLONOSCOPY FLEXIBLE PROXIMAL DIAGNOSTIC performed by Izzy Stone MD at ENDOSCOPY [facility] COLONOSCOPY, DIAGNOSTIC (RECTUM) 11/10/2020 Hemorrhoids, multi polyps, diverticulosis in sigmoid colon/ biopsy show adenomatous polyp/ COLONOSCOPY FLEXIBLE PROXIMAL DIAGNOSTIC performed by Maine Stone MD at ENDOSCOPY [facility] COLONOSCOPY, DIAGNOSTIC (RECTUM) 03/11/2022 poor prep / [facility] CORONARY ANGIOGRAPHY W/RIGHT+LEFT CATH Right 01/24/2023 CORONARY ANGIOGRAPHY W/RIGHT+LEFT CATH performed by Wilbur Rivera MD at [facility] CYSTOSCOPY 06/2012 EGD, FLEXIBLE, DIAGNOSTIC 10/12/2014 normal bx, HH/[facility] EGD, FLEXIBLE, DIAGNOSTIC 01/05/2016 ESOPHAGOGASTRODUODENOSCOPY (EGD), FLEXIBLE, TRANSORAL, DIAGNOSTIC performed by Maine Stone MD at ENDOSCOPY [facility] EGD, FLEXIBLE, DIAGNOSTIC 03/11/2022 Multiple small non-bleeding fundic gland polyps / [facility] EGD, FLEXIBLE, DIAGNOSTIC 12/09/2022 mild-mod inflammation / [facility] LAPAROSCOPY TOTAL HYSTX, UTERUS 250GM OR LESS TUBE/OVARY N/A 02/22/2020 ROBOTIC LAPAROSCOPIC HYSTERECTOMY REMOVAL TUBES AND OVARIES FOR UTERUS 250GM OR LESS performed by Florentin Perez MD at OR [facility] LAPAROSCOPY; CHOLECYSTECTOMY N/A 06/06/2020 LIGATE/CUT OVIDUCT(S) MAMMOGRAM BREAST NEEDLE BIOPSY CORE LEFT Left 09/19/2015 benign NECK SPINE FUSION (CERV, BELOW C2) 1993 1999,2011 PATIENT EDU, LUMBAR LAMINECTOMY 2001 1996 too RI TONSILLECTOMY PRIMARY/SECONDARY LESS THAN AGE 12 Bilateral REPAIR RUPTURED ROTATOR CUFF, ACUTE Left 08/08/2015 SINUS SURGERY PROCEDURE NEC 1994 TRANSCATH REPAIR MITRAL VALVE, INITIAL Bilateral 03/06/2023 TRANSCATHETER MITRAL VALVE REPAIR performed by Wilbur Rivera MD at [facility] Review of patient's allergies indicates: Allergen Reactions [...] Azithromycin Other (Please comment) QTC prolongation at [facility] Nickel Swelling Other reaction(s): Unknown Review of Systems Constitutional: Negative for appetite change, fatigue and unexpected weight change. Respiratory: Negative for cough, shortness of breath and wheezing. Cardiovascular: Negative for chest pain, palpitations and leg swelling. Gastrointestinal: Negative for abdominal pain, blood in stool, constipation, diarrhea, nausea and vomiting. Genitourinary: Negative for dysuria and hematuria. Neurological: Negative for dizziness, syncope and headaches. Psychiatric/Behavioral: Negative for confusion, decreased concentration and sleep disturbance. OBJECTIVE: BP 106/60 (BP Site: Left Arm, BP Position: Sitting, BP Cuff Size: Regular) | Pulse 81 | Temp 36.1 C (96.9 F) | Wt 70.6 kg (155 lb 9.6 oz) | SpO2 96% | BMI 25.89 kg/m | BSA 1.8 m Physical Exam Vitals and nursing note [...] edema. Left lower leg: No edema. Neurological: General: No focal deficit present. Mental Status: She is alert and oriented to person, place, and time. Psychiatric: Mood and Affect: Mood normal. Behavior: Behavior normal. Thought Content: Thought content normal. Judgment: Judgment normal. PLAN AND ASSESSMENT: Paroxysmal atrial fibrillation (HCC) (Primary) Continue Sotalol Cardiology discussed Watchman implant due to not being able to take anticoagulation Type 2 diabetes mellitus with stage 3b chronic kidney disease, without long-term current use of insulin (HCC) Diet controlled Chronic diastolic CHF (congestive heart failure) (HCC) Continue Torsemide Acquired hypothyroidism Continue Levothyroxine Displacement of cervical intervertebral disc without myelopathy Tremor Current moderate episode of major depressive disorder without prior episode (HCC) Continue Sertraline Moderate persistent asthma without complication Continue Advair, and Levalbuterol Cardiac pacemaker in situ History of endometrial cancer Severe tricuspid regurgitation Atherosclerosis of hoh coronary artery of hoh heart without angina pectoris Continue ASA S/P mitral valve clip implantation Follow Up: Return if symptoms worsen or fail to improve. Florentin Calvo DO 7:46 AM 04/21/2023 documented in this encounter Nursing Notes * Hilda Elizabeth RN - 04/18/2023 4:06 PM EDT 2 week follow up States doing ok-feels she is getting stronger-continues with PT. Denies SOB. No chest pain. documented in this encounter Plan of Treatment Upcoming Encounters Date Type Specialty Care Team Description 3 Office Visit Otolaryngology Blair Dupree, [address] [place] [address] 3 Hospital Encounter Endoscopy Jana Vieira DO [address] [place] [address] 3 Surgery Endoscopy Jana Vieira, DO [address] [place] [address] ESOPHAGOGASTRODUODENOSCOPY (EGD), FLEXIBLE, TRANSORAL, ENDOSCOPIC ULTRASOUND 3 Office Visit Nephrology Rosario Green MD [address] [place] [address] 3 Cardiac Studies Cardiac Studies 3 Office Visit Ophthalmology Wilbur Benavides DO [address] [place] [address] 3 Office Visit Family Medicine Florentin Calvo, DO [address] [place] [address] 3 Home Visit [facility] Mónica Angeles RN [address] [place] [address] 3 Office Visit Cardiology Stephen Hewitt DO [address] [place] [address] 4 Office Visit Hematology Oncology Nereyda Metz CRNP [address] [place] [address] 4 Office Visit Gynecology Oncology Chris Peng PA-C [address] [place], [place] [id number] Scheduled Procedures Name Priority Associated Diagnoses Date/Ti me ESOPHAGOGASTRODUODENOSCOPY ( EGD), FLEXIBLE, TRANSORAL, ENDOSCOPIC ULTRASOUND Elevated liver function tests 04/30/2023 10:15 AM EDT Health Maintenance Due Date Last Done Comments DIABETES-EYE EXAM 04/11/2023 04/11/2022, , 04/11/2022, Additional history exists Influenza Vaccine (FLU shot) (#1) 2023 05/15/2022, 05/22/2021, 04/19/2020, Additional history exists CKD PHOS USE SMARTSET 04526 05/01/2023 09/0 02/2022, 04/03/2022, 12/05/2020, Additional history exists HbA1c 08/23/2023 02/21/2023, 0 10/2022, 04/03/2022, Additional history exists TSH 09/24/2023 09/24/2022, 0 10/2022, 02/12/2022, Additional history exists DIABETES-FOOT EXAM 10/01/2023 10/01/2022, 0 10/26/2021, 12/05/2020, Additional history exists GFR 10/02/2023 04/01/2023, 02/23, 03/07/2023, Additional history exists Albumin/Creatinine Ratio 02/22/2024 023, 05/01/2022, 10/26/2021, Additional history exists CKD HGB USE SMARTSET 66599 04/11/202404/11, 04/11/2023, 04/01/2023, Additional history exists Depression [...] this encounter Medical Devices Implanted Type 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 Device 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 Shelf Expiration Date Model / Serial / Lot Cath Thermodilution 6fr - [id number] Implanted:Qty: 1 on 01/24/2023 by Wilbur Rivera MD at [facility] [employer] [id number] 10/15/2024 [id number] / / [id number] Mirtaclip G4 - [id number] Implanted:Qty: 1 on 03/10/2023 at [facility] [employer] 11/19/2023 [id number] / / [id number] documented as of this encounter Visit Diagnoses Diagnosis Paroxysmal atrial fibrillation (HCC)- Primary Atrial fibrillation Type 2 diabetes mellitus with stage 3b chronic kidney disease, without long-term current use of insulin (HCC) Chronic diastolic CHF (congestive heart failure) (HCC) Chronic diastolic heart failure Acquired hypothyroidism Unspecified hypothyroidism Displacement of cervical intervertebral disc without myelopathy Tremor Abnormal involuntary movements Current moderate episode of major depressive disorder without prior episode (HCC) Moderate persistent asthma without complication Unspecified asthma Cardiac pacemaker in situ History of endometrial cancer Personal history of malignant neoplasm of other parts of uterus Severe tricuspid regurgitation Diseases of tricuspid valve Atherosclerosis of hoh coronary artery of hoh heart without angina pectoris S/P mitral valve clip implantation Elevated liver function tests Other abnormal blood chemistry documented in this encounter Advance Directives Documents on File Type Date Recorded 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 Advance Directives and Living Will 11/29/2022 ADVANCE DIRECTIVE / LIVING WILL Power of Street Openings Inspector 11/29/2022 POWER OF A TTORNEY Advance Directives and Living Will 10/24/2014 ADVANCE DIRECTIVE / LIVING WILL Power of Street Openings Inspector 10/24/2014 POWER OF A TTORNEY Latest [...] Agents on File Name Relationship Healthcare Agent [facility] p Communication Bright [facility] Adult Child Health Care [facility]gen t (per Health Care Power of Street Openings Inspector document) Care Teams Hvac Tech Relationship Specialty Start Date End Date Florentin Calvo, DO [address] [place] [address] PCP - General Internal Medicine 03/24/13 documented as of this encounter
--- OUTSIDE RECORDS SUMMARY | 2023-08-14 23:38 | External Medical Summary ---
Author Name Unknown Address Unknown Organization K01:[facility] [place] [address] [facility] [address] Laboratory Report Ordering Provider Test Date Status HANY LILLY 04/17/2023 15:20:17 Final Observation Date Value Abnormality Reference (Units ) Status Campylobacter sp DNA.diarrheagenic [Presence] in Stool by KILO with probe detection 04/17/2023 15:20:17 Negative Negative Final Salmonella sp rpoD gene [Presence] in Stool by KILO with probe detection 04/17/2023 15:20:17 Negative Negative Final Shigella species+EIEC invasion plasmid antigen H ipaH gene [Presence] in Stool by KILO with probe detection 04/17/2023 15:20:17 Negative Negative Final Vibrio sp DNA [Identifier] in Specimen by KILO with probe detection 04/17/2023 15:20:17 Negative Negative Final Yersinia enterocolitica recN gene [Presence] in Stool by KILO with probe detection 04/17/2023 15:20:17 Negative Negative Final Escherichia coli Stx1 toxin stx1 gene [Presence] in Stool by KILO with probe detection 04/17/2023 15:20:17 Negative Negative Final Escherichia coli Stx2 toxin stx2 gene [Presence] in Stool by KILO with probe detection 04/17/2023 15:20:17 Negative Negative Final Norovirus genogroups I and II RNA panel - Stool by KILO with probe detection 04/17/2023 15:20:17 Negative Negative Final Rotavirus A RNA [Presence] in Stool by KILO with probe detection 04/17/2023 15:20:17 Negative Negative Final Performing Location LABORATORY [address] [facility] [address]
--- OUTSIDE RECORDS SUMMARY | 2023-08-14 23:38 | External Medical Summary | Summary of Care ---
Author Name Unknown Organization [facility] Address [address] [place] [address] Phone [phone] Care Team Providers Care Avionics Technician Name Role Phone Florentin Calvo DO Primary Care Provider [phone] Reason for Referral * Precert (Within 10 days (routine)) - Pending Review Specialty Diagnoses / Procedures Referred By Danny t Referred To Contact Radiology Diagnoses Paroxysmal atrial fibrillation (HCC) Procedures CT CARDIAC EPS [place] Jean-Baptiste CRNP [address] [place] [address] Referral ID Status Reason Start Date Expiration Date Visits Requested Visits Authorized [id number] Pending Review Precert 05/05/2023 999 999 Reason for Visit * Reason Onset Date Comments Procedure 04/21/2023 Encounter Details Date Type Department Care Team Description 04/21/2023 Telephone Cardiology [facility] [place] [address] [place] [address] [place] Jean-Baptiste CRNP [address] [place] [address] Procedure Allergies Active Allergy Reactions Severity Noted Date Comments Azithromycin Other (Please comment) 12/04/2021 QTC prolongation at [facility] Celecoxib Hives,Rash High 03/24/2013 Other reaction(s): [...] as of this encounter (statuses as of 04/22/2023) Medications Medication Sig Dispensed Refills Start Date [...] 3 08/05/2022 08/05/2023 Active OneTouch Delica Plus [id number] USE 2 TIMES A DAY DIRECTED 200 [...] DIRECTED 100 Tablet 3 03/31/2023 Active Ipratropium [place] 0.03 % Nasal Solution (Atrovent)Indicatio ns:Chronic rhinitis [...] as of this encounter (statuses as of 04/22/2023) Active Problems Problem Noted Date S/P mitral valve clip implantation 03/06 Atherosclerosis of [place] coronary arter y without angina pectoris 02/13/2023 Last Assessment & Plan: Continue statin, sotalol. 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 Denies fever/chills. Exam benign. Likely viral. -Mucinex 1200mg BID ordered x7 days. -Instructed supportive care and to call @[facility] if she feels she is worsening, not [...] as of this encounter (statuses as of 04/22/2023) Immunizations Name Administration Dates Next Due COVID-19 mRNA, LNP-s, No Pre serve, 2-Dose Series (Moderna) 06/23/2021,10/25/2020,09/28/2020 COVID-19, LNP-s, No Preserve , Larry-sucrose, Ages 12+ (Pfizer) 04/09/2022 Covid-19, Mrna, Lnp-s, Pf, B ivalent, 30 Mcg, IM, 12 yrs and above (luxustravel.es) 09/10/2022 HEP A - Hepatitis A (Adult [...] or do you have serious difficulty hearing? No-[place] can hear w/ hearing aid 03/07/2023 Are [...] Miscellaneous Notes * Telephone Encounter - JESS Encarnacion - 04/21/2023 12:43 PM EDT Shared Decision Making Documentation for Watchman NAME: Inga Barakat : 1940 I have spoken to Inga Barakat and discussed the Watchman left atrial appendage closure device. Inga Barakat has a history of atrial fibrillation oral anticoagulation treatment is recommended. Inga Barakat is a suitable candidate for short term anticoagulation therapy but is deemed unableto take alf oral anti coagulation due to: __X___ history of major bleeding, __X___ increased thromboembolic stroke risk, non-compliance with anticoagulation therapy, labile INR, __X___ high fall risk. The risks of continued anticoagulation were discussed, and I recommend the patient for this procedure due to the reasons listed above. DATE: 04/21/2023 PHYSICIAN: ___JESS Ny___ * Telephone Encounter - JESS Hawkins - 04/21/2023 12:[address] Miguel Tarango has seen this patient (Inga Barakat, 1940) and feels that she is a good candidate for the Watchman Device (left atrial appendage closure device). The Watchman treats the risk of stroke caused by atrial fibrillation and allows patients to safely discontinue their intermodal customer service anticoagulation. The device is offered to patients who are poor candidates for alf anticoagulation. Part of the work up requires a physician (other than the implanting physician) to document a statement that they also recommend the patient have the procedure. At your earliest convenience, if you could please complete the form below as it applies to your patient and send back to me, this would meet the requirements. The plan is to have the procedure performed on 06/12/2023. We appreciate your help, and we hope to hear from you if you have any questions or comments or would like to discuss your patient. Thank you for your assistance in this process. [place] NOWAK, JESS Division of Cardiology/[place] [address] MC: [id number] 04/21/2023 12:37 PM Shared Decision Making Documentation for Watchman NAME: Inga Barakat : 1940 I have spoken to Inga Barakat and discussed the Watchman left atrial appendage closure device. Inga Barakat has a history of atrial fibrillation oral anticoagulation treatment is recommended. Inga Barakat is a suitable candidate for short term anticoagulation therapy but is deemed unableto take alf oral anti coagulation due to: history of major bleeding, increased thromboembolic stroke risk, non-compliance with anticoagulation therapy, labile INR, high fall risk. The risks of continued anticoagulation were discussed, and I recommend the patient for this procedure due to the reasons listed above. DATE: PHYSICIAN: documented in this encounter Plan of Treatment Upcoming Encounters Date Type Specialty Care Team Description 3 Office Visit Otolaryngology Blair Dupree, DO [address] [place] [address] 3 Hospital Encounter Endoscopy Jana Vieira, DO [address] [place] [address] 3 Surgery Endoscopy Jana Vieira DO [address] [place] [address] ESOPHAGOGASTRODUODENOSCOPY (EGD), FLEXIBLE, TRANSORAL, ENDOSCOPIC ULTRASOUND 3 Office Visit Nephrology Rosario Green MD [address] [place] [address] 3 Cardiac Studies Cardiac Studies 3 Appointment Radiology 3 Office Visit Ophthalmology Wilbur Benavides DO [address] [place] [address] 3 Office Visit Family Medicine Florentin Calvo, DO [address] [place] [address] 3 Home Visit [facility] Mónica Angeles RN [address] [place] [address] 3 Hospital Encounter Cardiac Accountant Machine Processing Wilbur Rivera MD [address] [place] [address] 3 Surgery Cardiac Accountant Machine Processing Wilbur Rivera MD [address] [place] [facility] [place] [address] PERCUTANEOUS CLOSURE LEFT ATRIAL APPENDAGE IMPLANT 3 Office Visit Cardiology Michelle Cardiac [facility] [address] [facility], [place] [id number] 3 Office Visit Cardiology Stephen Hewitt, DO [address] [place] [address] 4 Office Visit Hematology Oncology Nereyda Metz CRNP [address] [facility] [place] [address] 4 Office Visit Gynecology Oncology Chris Peng PA-C [address] [place], [place] [phone] Scheduled Orders Name Type Priority Associated Diagnoses Orde r Schedule CT CARDIAC EPS Medical Imaging Routine Paroxysmal atrial fibrillation (HCC) Expected: 05/05/2023, Expires: 05/22/2024 CREATININE ISTAT, POINT OF CARE Point of Care Testing - Unsolicited Results STAT Paroxysmal atrial fibrillation (HCC) Expected: 05/05/2023 (Approximate), Expires: 05/22/2024 CREATININE Lab STAT Paroxysmal atrial fibrillation (HCC) Expected: 05/05/2023 (Approximate), Expires: 04/21/2024 Scheduled Procedures Name Priority Associated Diagnoses Date/Ti [...] Additional history exists CKD PHOS USE SMARTSET 90110 05/01/2023 090 02/2022, 04/03/2022, 12/05/2020, Additional history exists HbA1c 08/23/2023 02/21/2023, 10/2022, 04/03/2022, Additional history exists TSH 09/24/2023 09/24/2022, 10/2022, 02/12/2022, Additional history exists DIABETES-FOOT EXAM 10/01/2023 10/01/2022, 0 10/26/2021, 12/05/2020, Additional history exists GFR 10/02/2023 04/01/2023, 02/23, 03/07/2023, Additional history exists Albumin/Creatinine Ratio 02/22/2024 023, 05/01/2022, 10/26/2021, Additional history exists CKD HGB USE SMARTSET 42832 04/11/202404/11, 04/11/2023, 04/01/2023, Additional history exists Depression [...] this encounter Medical Devices Implanted Type Area Tank Hoop Bender Device Identifier Shelf Expiration Date Model / Serial / Lot Cath Thermodilution 6fr - [id number] Implanted:Qty: 1 on 01/24/2023 by Wilbur Rivera MD at [facility] [place] [employer] [id number] 10/15/2024 [id number] / / [id number] Mirtaclip G4 - [id number] Implanted:Qty: 1 on 03/10/2023 at [facility] [place] [employer] 11/19/2023 [id number] / / [id number] documented as of this encounter Visit Diagnoses Diagnosis Paroxysmal atrial fibrillation (HCC)- Primary Atrial fibrillation Paroxysmal atrial fibrillation (HCC)- Primary Atrial fibrillation Elevated liver function tests Other abnormal blood chemistry Paroxysmal atrial fibrillation (HCC) Atrial fibrillation documented in this encounter Advance Directives Documents on File Type Date Recorded 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
--- OUTSIDE RECORDS SUMMARY | 2023-08-14 23:38 | External Medical Summary | Summary of Care ---
Author Name Unknown Organization [facility] Address [address] [place] [address] Phone [phone] Care Team Providers Care Radiologist Name Role Phone Grey Calvo DO Primary Care Provider [phone] Reason for Visit * Reason Onset Date Comments Medication Refill 05/01/2023 Encounter Details Date Type Department Care Team Description 05/01/2023 Refill Cardiology, [facility] [address] [place] [address] Grey Calvo DO [address] [place], [place] [phone] Gout, arthropathy Allergies Active Allergy Reactions Severity Noted Date Comments Azithromycin Other (Please comment) 12/04/2021 QTC prolongation at [facility] Celecoxib Hives,Rash High 03/24/2013 Other [...] as of this encounter (statuses as of 05/01/2023) Medications Medication Sig Dispensed Refills Start Date [...] bedtime. 60 Each 2 12/12/2022 Active AnamariaPhilradha Lainezflorinda In Vitro Strip (Glucose Blood) Test blood [...] Oral Tablet (Lipitor)Indicatio ns:PVD (peripheral vascular disease) ([facility]),Type 2 diabetes mellitus with stage 3a chronic kidney disease and hypertension ([facility]) TAKE ONE TABLET BY MOUTH EVERY DAY DIRECTED 100 Tablet 3 03/31/2023 Active Ipratropium [place] 0.03 % Nasal Solution (Atrovent)Indicati ons:Chronic rhinitis [...] at bedtime. 180 Tablet 3 05/01/2023 Active Allopurinol 100 MG Oral Tablet (Zyloprim)Indicati ons:Gout, arthropathy Take 2 Tablets by mouth at bedtime. 60 Tablet 11 10/03/2022 3 Discontinue d(Refill) Hospital, Clinic, or Other [...] as of this encounter (statuses as of 05/01/2023) Active Problems Problem Noted Date S/P mitral valve clip implantation 03/06 Atherosclerosis of [place] coronary arter y without angina pectoris 02/13/2023 Last Assessment & Plan: Continue statin, sotalol. 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 [place] can hear w/ hearing aid 03/07/2023 Are [...] Telephone Encounter - Grey Calvo DO - 05/01/2023 3:14 PM EDTSigned Prescriptions: Disp Refills Allopurinol 100 MG Oral Tablet (Zyloprim) 180 Ta*3 Sig: Take 2 Tablets by mouth at bedtime.Authorizing Provider: GREY CALVO * Telephone Encounter - JESS Encarnacion - 05/01/2023 1:39 PM EDT Pending Prescriptions: Disp Refills Allopurinol 100 MG Oral Tablet (Zyloprim) 180 Ta*3 Sig: Take 2 Tablets by mouth at bedtime. * Telephone Encounter - JOHANA Johnston - 05/01/2023 1:20 PM EDTPending Prescriptions: Disp Refills Allopurinol 100 MG Oral Tablet (Zyloprim) 180 Ta*3 Sig: Take 2 Tablets by mouth at bedtime. * Telephone Encounter - JOHANA Johnston - 05/01/2023 1:19 PM EDT Pharmacy change Did you pend patient's preferred pharmacy and medication before forwarding?yes Pharmacy: [facility] Pending Prescriptions: Disp Refills Allopurinol 100 MG Oral Tablet (Zyloprim) 180 Ta*3 Sig: Take 2 Tablets by mouth at bedtime. Last Visit: 04/16/2023 (in office), Visit date not found (telemedicine) Next Visit: 06/17/2023 If no future appointments scheduled, and last appointment is greater than a year ago, please schedule patient for a follow-up appointment Last date the medication was ordered: 10-03-2022 Is this request for a controlled substance?No Urine Drug Screen:No results found. However, due to the size of the patient record, not all encounters were searched. Please check Results Review for a complete set of results. Patient Phone Numbers Labs: Lab Results Component Value Date/Time CREAT 1.5 (H) 04/01/2023 02:29 PM CREAT 1.27 (A) 08/07/2022 12:00 AM CREAT 1.3 (H) 06/13/2020 03:27 PM POTASSIUM 3.5 04/01/2023 02:29 PM POTASSIUM 3.8 03/06/2023 09:10 AM POTASSIUM [...] PM HGBA1C 6.4 (H) 06/13/2020 03:27 PM documented in this encounter Plan of Treatment Upcoming Encounters Date Type Specialty Care Team Description 05/09/2023 Office Visit Nephrology Rosario Green MD [address] [place], [place] [phone] 05/14/2023 Cardiac Studies Cardiac Studies 05/20/2023 Appointment Radiology 05/22/2023 Office Visit Ophthalmology Wilbur Benavides DO [address] [facility] [place], [place] [phone] 05/23/2023 Office Visit Family Medicine Grey Calvo DO [address] [place] [address] 05/28/2023 Home Visit [facility] Mónica Angeles RN [address] [place] [address] 06/12/2023 Hospital Encounter Cardiac Chief Supply Chain Officer Wilbur Rivera MD [address] [place] [address] 06/12/2023 Surgery Cardiac Chief Supply Chain Officer Wilbur Rivera MD [address] [place] [address] PERCUTANEOUS CLOSURE LEFT ATRIAL APPENDAGE IMPLANT 06/12/2023 Office Visit Cardiology Michelle, Cardiac Recovery Surya [address] [place] [address] 06/17/2023 Office Visit Cardiology Stephen Hewitt DO [address] [place] [address] 06/26/2023 Office Visit Otolaryngology Cheri Castillo PA-C [address] [place] [address] 07/11/2023 Procedure Only Endoscopy Jana Vieira DO [address] [place] [address] 10/14/2023 Office Visit Hematology Oncology Nereyda Metz CRNP [address] [place] [address] 10/24/2023 Office Visit Gynecology Oncology Chris Peng PA-C [address] [place] [address] Scheduled Procedures Name Priority Associated Diagnoses Date/Ti me PERCUTANEOUS CLOSURE LEFT ATRIAL APPENDAGE IMPLANT Paroxysmal atrial fibrillation (HCC) 06/12/2023 12:00 PM EDT Health Maintenance Due Date Last Done Comments DIABETES-EYE EXAM 04/11/2023 04/11/2022, , 04/11/2022, Additional history exists Influenza Vaccine (FLU shot) (#1) 2023 05/15/2022, 05/22/2021, 04/19/2020, Additional history exists CKD PHOS USE SMARTSET 75899 05/01/2023 09/0 02/2022, 04/03/2022, 12/05/2020, Additional history exists HbA1c 08/23/2023 02/21/2023, 01/0 10/2022, 04/03/2022, Additional history exists TSH 09/24/2023 09/24/2022, 01/0 10/2022, 02/12/2022, Additional history exists Diabetic Foot Exam 10/01/2023 10/01/2022, 0 10/26/2021, 12/05/2020, Additional history exists GFR 10/02/2023 04/01/2023, 02/23, 03/07/2023, Additional history exists Albumin/Creatinine Ratio 02/22/2024 023, 05/01/2022, 10/26/2021, Additional history exists CKD HGB USE SMARTSET 20872 04/11/202404/11, 04/11/2023, 04/01/2023, Additional history exists Depression [...] this encounter Medical Devices Implanted Type Area Gas Brazer Device Identifier Shelf Expiration Date Model / Serial / Lot Cath Thermodilution 6fr - [id number] Implanted:Qty: 1 on 01/24/2023 by Wilbur Rivera MD [place] [facility] [place] [employer] [id number] 10/15/2024 [id number] / / [id number] Mirtaclip G4 - [id number] Implanted:Qty: 1 on 03/10/2023 [place] [facility] [place] [employer] 11/19/2023 [id number] / / [id number] documented as of this encounter Visit Diagnoses Diagnosis Paroxysmal atrial fibrillation (HCC)- Primary Atrial fibrillation Gout, arthropathy Gouty arthropathy, unspecified Paroxysmal atrial fibrillation (HCC) Atrial fibrillation documented in this encounter Advance Directives Documents on File Type Date Recorded 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 Advance Directives and Living Will 11/29/2022 ADVANCE DIRECTIVE / LIVING WILL Power of Funding Analyst 11/29/2022 POWER OF A TTORNEY Advance Directives and Living Will 10/24/2014 ADVANCE DIRECTIVE / LIVING WILL Power of Funding Analyst 10/24/2014 POWER OF A TTORNEY Latest Code [...] Agents on File Name Relationship Healthcare [facility] Bright Barakat Adult Child Health Care Agen t (per Health Care Power of Funding Analyst document) Care Teams Radiologist Relationship Specialty Start Date End Date Grey Calvo, [address] [place] [address] PCP - General Internal Medicine 03/24/13 documented as of this encounter
--- OUTSIDE RECORDS SUMMARY | 2023-08-14 23:38 | External Medical Summary ---
Author Name Unknown Address Unknown Organization K01:[facility] [place] [facility] [address] [facility] [address] [facility] [address] Laboratory Report Ordering Provider Test Date Status HANY LILLY 04/17/2023 15:20:17 Final Observation Date Value Abnormality Reference (Units ) Status Cryptosporidium sp Ag [Presence] in Stool by Immunoassay 04/17/2023 15:20:17 Negative Negative Final Negative for Cryptosporidium Antigen. Giardia lamblia Ag [Presence ] in Stool by Immunoassay 04/17/2023 15:20:17 Negative Negative Final Negative for Giardia Specifi c Antigen. Performing Location [facility] [place] [address] [facility] [address]
--- OUTSIDE RECORDS SUMMARY | 2023-08-14 23:39 | External Medical Summary | Summary of Care ---
Author Name Unknown Organization [facility] Address [address] [place] [address] Phone [phone] Care Team Providers Care Water Main Pipe Layer Name Role Phone Florentin Calvo DO Primary Care Provider [phone] Reason for Visit * Reason Onset Date Comments Information 04/10/202304/10 Encounter Details Date Type Department Care Team Description 04/10/2023 Telephone Family Practice [facility] [address] [place] [address] Florentin Calvo DO [address] [place] [address] Information (04/10) Allergies Active Allergy Reactions Severity Noted Date [...] as of this encounter (statuses as of 04/14/2023) Medications Medication Sig Dispensed Refills Start Date End Date Status OneTouch Verio w/Device KitIndications:Typ e 2 diabetes mellitus with hemoglobin A1c goal of less than 7.0% ([facility]) Use up to 1 times [...] 06/13/2022 Active Allopurinol 100 MG Oral Tablet (Zyloprim)Indicati ons:Gout, arthropathy Take 2 Tablets by mouth at bedtime. 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 90 mL 3 04/01/2023 Active Sotalol HCl 80 MG Oral Tablet (Betapace)Indicati ons:Paroxysmal atrial fibrillation (HCC) Take 0.5 Tablets by mouth in the morning and 0.5 Tablets before bedtime. 300 Tablet 3 04/10/2023 Active Sotalol HCl AF 80 MG Oral Tablet Take 40 mg by mouth in the morning and 40 mg in the evening. 0 04/10/2023 3 Discontinue d(Medicatio n List Clean Up) Hospital, Clinic, or Other Facility Administered Medication [...] as of this encounter (statuses as of 04/14/2023) Active Problems Problem Noted Date S/P mitral valve clip implantation 03/06 Atherosclerosis of [place] coronary arter y without angina pectoris 02/13/2023 [...] Obstructive sleep apnea of adult 015 Overview: SERVICE DESK LEAD Last Assessment & Plan: Now just using [...] as of this encounter (statuses as of 04/14/2023) Resolved Problems Problem Noted Date Resolved Date [...] as of this encounter (statuses as of 04/14/2023) Immunizations Name Administration Dates Next Due COVID-19 [...] or do you have serious difficulty hearing? No-BOIS FORTE can hear w/ hearing aid 03/07/2023 Are [...] encounter Miscellaneous Notes * Telephone Encounter - Bahman Hernandez RN - 04/11/2023 11:07 AM EDT Called and spoke to the patient and she stated that she is taking the Sotalol 80 mg 1/2 tab BID>Explained to her that a new script was sent in also. She stated she understood and appreciated the phoned call. * Telephone Encounter - Abigail Goncalves PA-C - 04/11/2023 10:15 AM EDT Per chart review, Sotalol was continued post valve [place] [facility] [place]. She should be taking sotalol 80 mg - 1/2 tab BID. I do not think this was changed. She should continue. Please let patient/family know Looks like refill was sent yesterday * Telephone Encounter - JESS Encarnacion - 04/10/2023 4:18 PM EDT I have only ever seen this patient in follow up regarding valve clinic. It appears that she was on sotalol at her last appt. I do not see documentation where it was stopped. Abigail, do you agree? -JESS Bear * Telephone Encounter - Florentin Calvo DO - 04/10/2023 4:13 PM EDT Refill sent Will await input from cardiology * Telephone Encounter - Hilda Awad LPN - 04/10/2023 3:58 PM EDT Patient is currently taking the sotolol Is needing refill. Thank you * Telephone Encounter - Hilda Awad LPN - 04/10/2023 3:51 PM EDT Called Kathy, left message for her to return call. Thank you * Telephone Encounter - Florentin Calvo DO - 04/10/2023 3:37 PM EDT If patient is taking Sotalol she should continue current dose. If she stopped Sotalol she should not restart the medication. I will send encounter to cardiology as well. * Telephone Encounter - Hilda Awad LPN - 04/10/2023 3:03 PM EDT Sotolol is not on patient active medication list. * Telephone Encounter - RADHA Cohen - 04/10/2023 2:31 PM EDT Pts daughter calling regarding Sotalol. States they had a home visiting nurse today who stated she didn't think patient should still be taking. Nurse thought she should have been taken off of this med, however; no one has said anything to daughter regarding not taking. Please confirm if this med is needed and if so, how much. Kathy can be reached at [phone] documented in this encounter Plan of Treatment Upcoming Encounters Date Type Specialty Care Team Description 3 Office Visit Cardiology Wilbur Rivera MD [address] [place] [address] 3 Office Visit Family Medicine Florentin Calvo, DO [address] [place] [address] 3 Office Visit Otolaryngology Blair Dupree, DO [address] [place] [address] 3 Hospital Encounter Endoscopy Jana Vieira, DO [address] [place] [address] 3 Surgery Endoscopy Jana Vieira, DO [address] [place] [address] ESOPHAGOGASTRODUODENOSCOPY (EGD), FLEXIBLE, TRANSORAL, ENDOSCOPIC ULTRASOUND 3 Office Visit Nephrology Rosario Green MD [address] [place] [address] 3 Cardiac Studies Cardiac Studies 3 Office Visit Ophthalmology Wilbur Benavides, DO [address] [place] [address] 3 Office Visit Family Medicine Florentin Calvo, DO [address] [place] [address] 3 Home Visit [facility] Mónica Angeles RN [address] [place] [address] 3 Office Visit Cardiology Stephen Hewitt, DO [address] [place] [address] 4 Office Visit Hematology Oncology Nereyda Metz CRNP [address] [place] [address] 4 Office Visit [facility]ne[facility] [address] Scheduled Procedures Name Priority Associated Diagnoses Date/Ti me ESOPHAGOGASTRODUODENOSCOPY ( EGD), FLEXIBLE, TRANSORAL, ENDOSCOPIC ULTRASOUND Elevated liver function tests 04/30/2023 10:15 AM EDT Health Maintenance Due Date Last Done Comments DIABETES-EYE EXAM 04/11/2023 04/11/2022, , 04/11/2022, Additional history exists Influenza Vaccine (FLU shot) (#1) 2023 05/15/2022, 05/22/2021, 04/19/2020, Additional history exists CKD PHOS USE SMARTSET 52757 05/01/2023 09/0 02/2022, 04/03/2022, 12/05/2020, Additional history [...] Over 04/01/2024 04/01/2023 CKD HGB USE SMARTSET 50783 04/11/202404/11, 04/11/2023, 04/01/2023, Additional history exists DXA [...] this encounter Medical Devices Implanted Type Area River Tester Device Identifier Shelf Expiration Date Model / Serial / Lot Cath Thermodilution 6fr - [id number] Implanted:Qty: 1 on 01/24/2023 by Wilbur Rivera MD at [facility] [employer] [id number] 10/15/2024 [id number] / / [id number] Mirt[employer] G4 - [id number] Implanted:Qty: 1 on 03/10/2023 at [facility] [employer] 11/19/2023 [id number] / / [id number] documented as of this encounter Visit Diagnoses Diagnosis Paroxysmal atrial fibrillation (HCC)- Primary Atrial fibrillation Elevated liver function tests Other abnormal blood chemistry documented in this encounter Advance Directives Documents on File Type Date Recorded Patient Suture Winder Hand Expl anation Advance Directives and Living Will 11/29/2022 ADVANCE DIRECTIVE / LIVING WILL Power of Car Blocker 11/29/2022 POWER OF A TTORNEY Advance Directives and Living Will 10/24/2014 ADVANCE DIRECTIVE / LIVING WILL Power of Car Blocker 10/24/2014 POWER OF A TTORNEY Latest Code [...] Agents on File Name Relationship Healthcare Agent [facility] Adult Child Health Care Agen t (per Health Care Power of Car Blocker document) Care Teams Water Main Pipe Layer Relationship Specialty Start Date End Date Florentin Calvo, [address] [facility] [place] [address] PCP - General Internal Medicine 03/24/13 documented as of this encounter
--- OUTSIDE RECORDS SUMMARY | 2023-08-14 23:39 | External Medical Summary | Summary of Care ---
Author Name Unknown Organization [facility] Address [address] [place] [address] Phone [phone] Care Team Providers Care Exchange Administrator Name Role Phone Florentin Calvo DO Primary Care Provider [phone] Reason for Visit * Reason Comments Follow Up 3m Encounter Details Date Type Department Care Team Description 04/11/2023 Office Visit Hematology/Oncology [facility] [address] [place], [place] [id number] Nereyda eMtz CRNP [address] [facility] [place] [address] Iron deficiency anemia, unspecified iron deficiency anemia type* Allergies Active Allergy Reactions Severity Noted Date Comments Azithromycin Other (Please comment) 12/04/2021 QTC prolongation at [facility] Celecoxib Hives,Rash High 03/24/2013 Other [...] as of this encounter (statuses as of 04/13/2023) Medications Medication Sig Dispensed Refills Start Date [...] 3 08/05/2022 08/05/2023 Active OneTouch Delica Plus [id number] USE 2 TIMES A DAY DIRECTED 200 [...] DIRECTED 100 Tablet 3 03/31/2023 Active Ipratropium Rye 0.03 % Nasal Solution (Atrovent)Indicatio ns:Chronic rhinitis [...] as of this encounter (statuses as of 04/13/2023) Active Problems Problem Noted Date S/P mitral valve clip implantation 03/06 Atherosclerosis of [place] coronary arter y without angina pectoris 02/13/2023 Last Assessment & Plan: Continue statin, sotalol. 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 Last Assessment & Plan: Now just using [...] as of this encounter (statuses as of 04/13/2023) Resolved Problems Problem Noted Date Resolved Date [...] as of this encounter (statuses as of 04/13/2023) Immunizations Name Administration Dates Next Due COVID-19 [...] Sign Reading Time Taken Comments Blood Pressure 122/74 04/11/2023 1:46 PM EDT Pulse 73 04/11/2023 1:46 PM EDT Temperature - - Respiratory Rate 16 04/11/2023 1:46 PM EDT Oxygen Saturation 97% 04/11/2023 1:46 PM EDT Inhaled Oxygen Concentration - - Weight 71.7 kg (158 lb 1.6 oz) 04/11/2023 1:46 P M EDT Height - - Body Mass Index 26.31 04/01/2023 11:16 AM EDT documented in this encounter Functional Status Functional Status Response Date of Assess ment Are you deaf or do you have serious difficulty hearing? No-[place] can hear w/ hearing aid 03/07/2023 [...] as of this encounter Progress Notes * Nereyda Metz, JESS - 04/11/2023 2:00 PM EDT Images from the original note were not included. Hematology/Oncology Outpatient Clinic note [facility] [address] [facility] [place] [address] Name: Inga Barakat Date: 04/11/2023 CHIEF COMPLAINT: Inga Barakat is a 82 year old female here today for f/u visit today. Patient of Dr. Hasmukh Hood. From Patient chart confirmed with patient. 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 Treatment Summary Endometrial cancer (HCC) (Resolved) 01/25/2020 Initial Diagnosis A. Endometrium: At least endometrioid intraepithelial neoplasia (EIN), see comment. B. Skin, vaginal sidewall: Benign fibroepithelial polyp. Comment: A. The specimen is fragmented which precludes a definitive diagnosis. The overall findings are compatible with at least endometrioid intraepithelial neoplasia (EIN), while a FIGO grade 1 endometrioidadenocarcinoma cannot be entirely excluded. 02/22/2020 Surgery Robotic assisted total laparoscopic hysterectomy, bilateral salpingo- oophorectomy and bilateral sentinel pelvic lymph node dissection. 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 Patient with baseline Hgb of 11-12 range. Over the last three months has been running in the 9-10 range with normocytic indices. No abnormalities in other cell lines. TSAT low but ferritin elevated slightly at 183. Patient with knownfatty liver disease. In February patient was hospitalized for acute on chronic anemia. Patient had an EGD on 03/11/22 with multiple non-bleeding fundic gland polyps. Patient was taken off of her Eliquis at this time. Continues to take Aspriin 81 mg daily. Scheduled for EUS in November. Has been taking ferrous sulfate 1 tab BID along with folic acid and vitamin b12 supplement for the last two years. Patient had pacemaker placed August 15. Since this has been feeling improved. Sleeping better and energy has improved. Also back on her CPAP machine. Is now longer on blood thinner d/t bleeding concern. Does take aspirin 81 mg daily. Was having intermittently dark colored stools. Not currently experiencing this. Denies drenching night sweats. Weight loss has now stabilized off of Ozempic, lost 60 pounds last yeaer. Does have some minimal dizziness that comes and goes. This has also improved with pacemaker placement. Had COVID in March. Was having SOB at rest and exertion when she was in atrialfibrillation that also improved with pacemaker placement. Interval History: Patient was hospitalized at [facility] from 12/06/22 - 12/09/22 MitraClip placement due to severe symptomatic mitral regurgitation on 03/06/2023. HOSPITAL COURSE (focused): Patient reported to [facility] for mitral valve clip placement in the setting of severe symptomatic mitralregurgitation and worsening shortness of breath. She tolerated the procedure well and was noted to be significantly volume up intravascularly and was there given pasha IV diuresis with Bumex. She had one stitch in place in the right femoral access site which was successfully removed the next day. She underwent post-op imaging which showed trivial mitral regurgitation and significant persistent tricuspid regurgitation. She remained hemodynamically stable and was discharged home on an increased dose of her diuretic with instructions for close follow up. Operations & Procedures: Mitral Clip Placement Page Interpretation (focused): Successful percutaneous placement of one mitraclip XTW and one mitraclip XT device/s Eliquis remains on hold. Following up with cardiology at the end of the month to discuss Watchman Procedure. Declined repeat colonoscopy. Following with GI d/t elevated LFTs, dysphagia and weight loss. Recommended EGD/EUS. HISTORY OF PRESENT ILLNESS: Inga Barakat is a 82 year old female with a history as outlined above. Currently here for f/u visit today. Patient feeling much better since the mitral valve clip was placed. Breathing much better. Is getting around well with her walker. Stools are dark on the iron. About twice a week will become loose. Continues on Protonix 40 mg BID. On baby aspirin once a day. Lowered ferrous sulfate to onetablet daily in February as recommended by PCP. Tolerating ferrous sulfate well. 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 Pleural effusion Pulmonary arterial hypertension ([facility]) Pure hypercholesterolemia 07/02/2021 PVD (peripheral vascular disease) ([facility]) 05/15/2022 Retinopathy Secondary hyperparathyroidism, renal ([facility]) 12/17/2018 Severe mitral valve regurgitation 10/30/2022 Severe tricuspid regurgitation 11/18/2022 Spinal stenosis 07/2002 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 claudication 03/24/2013 Vertigo 03/24/2013 Past Surgical History: Procedure Laterality Date COLONOSCOPY, DIAGNOSTIC (RECTUM) 10/12/2014 inflammatory tissue on bx, diverticulosis/[facility] COLONOSCOPY, DIAGNOSTIC (RECTUM) 01/05/2016 diverticulosis, multiple non-bleeding colonic angioectasias COLONOSCOPY, DIAGNOSTIC (RECTUM) 04/15/2016 angiodysplastic lesion, diverticulosis/COLONOSCOPY FLEXIBLE PROXIMAL DIAGNOSTIC performed by Izzy Stone MD at ENDOSCOPY [facility] COLONOSCOPY, DIAGNOSTIC (RECTUM) 11/10/2020 Hemorrhoids, multi polyps, diverticulosis in sigmoid colon/ biopsy show adenomatous polyp/ COLONOSCOPY FLEXIBLE PROXIMAL DIAGNOSTIC performed by Maine Stone MD at ENDOSCOPY [facility] COLONOSCOPY, DIAGNOSTIC (RECTUM) 03/11/2022 poor prep / [facility] CORONARY ANGIOGRAPHY W/RIGHT+LEFT CATH Right 01/24/2023 CORONARY ANGIOGRAPHY W/RIGHT+LEFT CATH performed by Wilbur Rivera MD at [facility] CYSTOSCOPY 06/2012 EGD, FLEXIBLE, DIAGNOSTIC 10/12/2014 normal bx, HH/[facility] EGD, FLEXIBLE, DIAGNOSTIC 01/05/2016 ESOPHAGOGASTRODUODENOSCOPY (EGD), FLEXIBLE, TRANSORAL, DIAGNOSTIC performed by Maine Stone MD at ENDOSCOPY [facility] EGD, FLEXIBLE, DIAGNOSTIC 03/11/2022 Multiple small non-bleeding fundic gland polyps / [facility] EGD, FLEXIBLE, DIAGNOSTIC 12/09/2022 mild-mod inflammation / [facility] LAPAROSCOPY TOTAL HYSTX, UTERUS 250GM OR LESS TUBE/OVARY N/A 02/22/2020 ROBOTIC LAPAROSCOPIC HYSTERECTOMY REMOVAL TUBES AND OVARIES FOR UTERUS 250GM OR LESS performed by Florentin Perez MD at OR [facility] LAPAROSCOPY; CHOLECYSTECTOMY N/A 06/06/2020 LIGATE/CUT OVIDUCT(S) MAMMOGRAM BREAST NEEDLE BIOPSY CORE LEFT Left 09/19/2015 benign NECK SPINE FUSION (CERV, BELOW C2) 1993 1999,2011 PATIENT EDU, LUMBAR LAMINECTOMY 2001 1996 too [place] TONSILLECTOMY PRIMARY/SECONDARY LESS THAN AGE 12 Bilateral REPAIR RUPTURED ROTATOR CUFF, ACUTE Left 08/08/2015 SINUS SURGERY PROCEDURE NEC 1994 TRANSCATH REPAIR MITRAL VALVE, INITIAL Bilateral 03/06/2023 TRANSCATHETER MITRAL VALVE REPAIR performed by Wilbur Rivera MD at [facility] Social History Socioeconomic History Marital status: Spouse [...] on file Housing Stability: Not on file Review of patient's allergies indicates: Allergen Reactions [...] Azithromycin Other (Please comment) QTC prolongation at [facility] Nickel Swelling Other reaction(s): Unknown Current Outpatient Medications Medication Sig Dispense Refill [employer] w/Device Kit Use up to 1 times [...] 1 Puff before bedtime. 60 Each 2 AventeonTouch Verio In Vitro Strip (Glucose Blood) Test blood sugars up to 2 times a day E11.9 200 Strip3 Pantoprazole Sodium 40 MG Oral Tablet Delayed [...] BY MOUTH AT BEDTIME 100 Tablet 3 OneTouch Delica Plus [id number] USE 2 TIMES A DAY DIRECTED 200 Each 3 Torsemide 20 MG Oral Tablet (Demadex) [...] MOUTH EVERY DAY DIRECTED 100Tablet 3 Ipratropium Rye 0.03 % Nasal Solution (Atrovent) Administer 2 Sprays into nostril in the morning and 2 Sprays before bedtime. 90 mL 3 Sotalol HCl 80 MG Oral Tablet (Betapace) Take 0.5 Tablets by mouth in the morning and 0.5 Tablets before bedtime. 300 Tablet 3 Current Facility-Administered Medications Medication Dose Route Frequency Provider Last Rate Last Admin Albuterol Sulfate (Proventil) (2.5 MG/3ML) 0.083% inhalation solution 2.5 mg 2.5 mg Nebulizer PRBello Goncalves PA-C Albuterol Sulfate (Proventil) (5 MG/ML) 0.5% *conc* inhalation solution 2.5 mg 2.5 mg Nebulizer Keyonna Goncalves PA-C Albuterol Sulfate (Proventil) (5 MG/ML) 0.5% *conc* inhalation solution 2.5 mg 2.5 mg Nebulizer JESS Mesa Albuterol Sulfate (Proventil) (2.5 MG/3ML) 0.083% inhalation solution 2.5 mg 2.5 mg Nebulizer PRJESS Arevalo 2.5 mg at 10/31/22 1441 REVIEW OF SYSTEMS: See HPI - otherwise negative OBJECTIVE: Filed Vitals: 04/11/23 1346 BP: 122/74 Pulse: 73 Resp: 16 SpO2: 97% Weight: 71.7 kg (158 lb 1.6 oz) Wt Readings from Last 5 Encounters: 04/11/23 71.7 kg (158 lb 1.6 oz) 04/10/23 70.5 kg (155 lb 8 oz) 04/07/23 70.8 kg (156 lb) 04/07/23 71.2 kg (156 lb 14.4 oz) 04/01/23 70.4 kg (155 lb 4.8 oz) PHYSICAL EXAM: General Appearance: No acute distress Lymph Nodes: Normal - No palpable lymph nodes in the neck or supraclavicular areas Lungs/Thorax: Normal - Clear to auscultation Heart: Normal - Regular rate and rhythm, normal S1, S2, no appreciable murmurs Extremities: +BLE edema Neurologic: alert and oriented x 4, ambulates with walker LABS: Results for orders placed or performed in visit on 04/01/23 CBC Result Value Ref Range WBC 9.08 4.00 - 10.80 K/uL RBC 3.88 3.85 - 5.15 M/uL HGB 11.7 (L) 12.0 - 15.3 g/dL HCT 36.3 36.0 - 45.2 % MCV 93.6 81.5 - 97.5 fL MCH 30.2 27.0 - 34.0 pg MCHC 32.2 32.0 - 36.0 g/dL RDW 16.4 11.5 - 15.5 % PLT 180 140 - 400 K/uL MPV 10.5 6.6 - 11.1 fL BASIC METABOLIC PANEL Result Value Ref Range BUN 51 (H) 6 - 20 mg/dL Creatinine 1.5 (H) 0.5 - 1.0 mg/dL Estimated Glomerular Filtration Rate 35 (L) >=60 mL/min Sodium 138 135 - 146 mmol/L Potassium 3.5 3.5 - 5.1 mmol/L Chloride 100 98 - 107 mmol/L CO2 22 22 - 32 mmol/L Anion Gap 16 (H) 7 - 15 mmol/L Glucose 172 (H) 70 - 120 mg/dL Calcium 9.5 8.4 - 10.2 mg/dL BNP, NT-PRO Result Value Ref Range BNP, NT-Pro 4,368 (H) <300 pg/mL *Note: Due to a large number of results and/or encounters for the requested time period, some results have not been displayed. A complete set of results can be found in Results Review. IMPRESSION/PLAN: Iron deficiency anemia CKD Cause of anemia in this case likely multifactorial including anemia of chronic kidney disease and iron deficiency She did receive 1 unit of PRBC in mid-November 2022 when she was admitted at [facility] for the symptomatic anemia with hemoglobin level around 7.3 g/dL at that time. Eliquis on hold since that time and anemia has stabilized. MitraClip placement due to severe symptomatic mitral regurgitation on 03/06/2023. Patient feeling clinically improved with increased strength and stamina and decreased SOB. Following up with cardiology at the end of the month to discuss Watchman Procedure. Patient declined repeat colonoscopy. Following with GI d/t elevated LFTs, dysphagia and weight loss. Recommended EGD/EUS - scheduled 04/30/23. Continue oral supplements: Ferrous sulfate 1 tablet daily Vitamin B12 100 mcg daily Folic acid 1 mg daily Will monitor cbc/diff monthly and repeat iron screen and ferritin in three months Follow up with all other specialists as recommended RTC in 6 months with provider with cbc/diff, cmp, iron screen and ferritin JESS Tavarez documented in this encounter Nursing Notes * Sonia Ford CMA - 04/11/2023 1:47 PM EDT Patient identifed by name and birthdate Do you have any concerns about pain management for today's visit? No Living Will or Advance Directive for Health Care as noted on the problem list. [facility] is a way you can talk to your provider on line through e-mail. Would you like to sign up? I can activate it for you? ALREADY ACTIVE Filed Vitals: 04/11/23 1346 BP: 122/74 Pulse: 73 Resp: 16 SpO2: 97% Weight: 71.7 kg (158 lb 1.6 oz) Patient was instructed to not get up on the exam table/exam chair until directed and assisted by their provider; patient is to remain seated in the chair/ wheelchair/ exam table/ exam chair for fall prevention and safety reasons. Patient is aware to have assistance to step down off exam table/exam chair with personnel. Patient voiced full comprehension of instructions. documented in this encounter Plan of Treatment Upcoming Encounters Date Type Specialty Care Team Description 3 Office Visit Cardiology Wilbur Rivera MD [address] [place] [address] 3 Office Visit Family Medicine Florentin Calvo, DO [address] [place] [address] 3 Office Visit Otolaryngology Blair Dupree, DO [address] [place] [address] 3 Hospital Encounter Endoscopy Jana Vieira, DO [address] [place] [address] 3 Surgery Endoscopy Jana Vieira, DO [address] [place] [address] ESOPHAGOGASTRODUODENOSCOPY (EGD), FLEXIBLE, TRANSORAL, ENDOSCOPIC ULTRASOUND 3 Office Visit Nephrology Rosario Green MD [address] [place] [address] 3 Cardiac Studies Cardiac Studies 3 Office Visit Ophthalmology Wilbur Benavides, DO [address] [place] [address] 3 Office Visit Family Medicine Florentin Calvo, DO [address] [place] [address] 3 [facility] Visit [facility] Mónica Angeles RN [address] [facility] [place] [address] 3 Office Visit Cardiology Stephen Hewitt, [address] [place] [address] 4 Office Visit [facility]ematology Oncology [facility]z [facility] [address] [facility] [place] [address] 4 Office Visit Gynecology Oncology Chris Peng PA-Shonna [address] [facility] [place] [id number] Scheduled Orders Name Type Priority Associated Diagnoses Orde r Schedule CBC WITH WBC DIFFERENTIAL Lab STAT Iron deficiency anemia, unspecified iron deficiency anemia type Every Month for 6 Occurrences starting 04/13/2023 until 04/13/2024 IRON SCREEN, INCLUDING TIBC Lab STAT Iron deficiency anemia, unspecified iron deficiency anemia type Every 3 Months for 4 Occurrences starting 04/13/2023 until 04/13/2024 FERRITIN Lab STAT Iron deficiency anemia, unspecified iron deficiency anemia type Every 3 Months for 4 Occurrences starting 04/13/2023 until 04/13/2024 COMPREHENSIVE METABOLIC PANEL Lab STAT Iron deficiency anemia, unspecified iron deficiency anemia type Expected: 10/14/2023 (Approximate), Expires: 04/13/2024 Scheduled Procedures Name Priority Associated Diagnoses Date/Ti me ESOPHAGOGASTRODUODENOSCOPY ( EGD), FLEXIBLE, TRANSORAL, ENDOSCOPIC ULTRASOUND Elevated liver function tests 04/30/2023 10:15 AM EDT Health Maintenance Due Date Last Done Comments DIABETES-EYE EXAM 04/11/2023 04/11/2022, , 04/11/2022, Additional history exists Influenza Vaccine (FLU shot) (#1) 2023 05/15/2022, 05/22/2021, 04/19/2020, Additional history exists CKD PHOS USE SMARTSET 33862 05/01/2023 09/0 02/2022, 04/03/2022, 12/05/2020, Additional history [...] Over 04/01/2024 04/01/2023 CKD HGB USE SMARTSET 50739 04/11/202404/11, 04/11/2023, 04/01/2023, Additional history exists DXA [...] this encounter Medical Devices Implanted Type 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 Device Identifier Shelf Expiration Date Model / Serial / Lot Cath Thermodilution 6fr - [id number] Implanted:Qty: 1 on 01/24/2023 by Wilbur Rivera MD at [facility] [employer] [id number] 10/15/2024 [id number] / / [id number] Mirtaclip G4 - [id number] Implanted:Qty: 1 on 03/10/2023 at [facility] [email or web address] 11/19/2023 [id number] / / [id number] documented as of this encounter Visit Diagnoses Diagnosis Iron deficiency anemia, unspecified iron deficiency anemia type- Primary Elevated liver function tests Other abnormal blood chemistry documented in this encounter Advance Directives Documents on File Type Date Recorded 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 Expl anation Advance Directives and Living Will 11/29/2022 ADVANCE DIRECTIVE / LIVING WILL Power of Chip Separator 11/29/2022 POWER OF A TTORNEY Advance Directives and Living Will 10/24/2014 ADVANCE DIRECTIVE / LIVING WILL Power of Chip Separator 10/24/2014 POWER OF A TTORNEY Latest Code [...] Agents on File Name Relationship Healthcare Agent [facility] p Communication Bright Barakat Adult Child Health Care Agen t (per Health Care Power of Chip Separator document) Care Teams Exchange Administrator Relationship Specialty Start Date End Date Florentin Calvo, [place] [address] PCP - General Internal Medicine 03/24/13 documented as of this encounter
--- OUTSIDE RECORDS SUMMARY | 2023-08-14 23:39 | External Medical Summary ---
Author Name Unknown Address Unknown Organization K09[facility] [place] [place] [address] Laboratory Report Ordering Provider Test Date Status [facility] ORR 04/11/2023 13:15:05 Final Observation Date Value Abnormality Reference (Units ) Status WBC, Total 04/11/2023 13:15:05 7.54 4.00-10.8 0 (K/uL) Final RBC 04/11/2023 13:15:05 3.66 3.85-5.15 (M/uL) Final Hemoglobin 04/11/2023 13:15:05 10.9 Below low normal 12 .0-15.3 (g/dL) Final HCT 04/11/2023 13:15:05 34.1 Below low normal 36. 0-45.2 (%) Final MCV 04/11/2023 13:15:05 93.2 81.5-97.5 (fL) Final MCH 04/11/2023 13:15:05 29.8 27.0-34.0 (pg) Final MCHC 04/11/2023 13:15:05 32.0 32.0-36.0 (g/dL) Final RDW 04/11/2023 13:15:05 17.3 11.5-15.5 (%) Final Platelets 04/11/2023 13:15:05 167 140-400 (K /uL) Final MPV 04/11/2023 13:15:05 9.4 6.6-11.1 ( fL) Final Performing Location [facility] [place] [address]
--- OUTSIDE RECORDS SUMMARY | 2023-08-14 23:39 | External Medical Summary ---
Author Name Unknown Address Unknown Organization K09[facility] [place] [address] Laboratory Report Ordering Provider Test Date Status [facility] ORR 04/11/2023 13:15:05 Final Observation Date Value Abnormality Reference (Units ) Status SYNC LEUKOCYTES IN BLOOD BY AUTOMATED COUNT 04/11/2023 13:15:05 7.54 4.00-10.80 (K/uL) Final Segs 04/11/2023 13:15:05 66.8 40.0-75.0 (%) Final Lymphs % 04/11/2023 13:15:05 14.1 Below low normal 18.0-42.0 (%) Final Monos 04/11/2023 13:15:05 11.1 Above high normal 1.0-11.0 (%) Final Eosinophils 04/11/2023 13:15:05 7.7 Above high normal 0.0-6.0 (%) Final Basos 04/11/2023 13:15:05 0.3 0.0-2.0 (%) Final Absolute Segs 04/11/2023 13:15:05 5.04 1.80-7.70 (K/uL) Final Lymphs, absolute 04/11/2023 13:15:05 1.06 1.00-4.80 (K/ul) Final Monos, Abs 04/11/2023 13:15:05 0.84 0.00-1.10 (K/uL) Final Eos, Abs 04/11/2023 13:15:05 0.58 0.00-0.70 (K/uL) Final Basos, Abs 04/11/2023 13:15:05 0.02 0.00-0.20 (K/uL) Final Performing Location [facility] [place] [address]
--- OUTSIDE RECORDS SUMMARY | 2023-08-14 23:39 | External Medical Summary | Summary of Care ---
Author Name Unknown Organization [facility] Address [address] [place] [address] Phone [phone] Care Team Providers Care Lining Printer Name Role Phone Florentin Calvo DO Primary Care Provider [phone] Reason for Visit * Reason Comments Outpatient Testing Encounter Details Date Type Department Care Team Description 04/11/2023 Laboratory Laboratory [facility] [place] [address] [place] [address] [facility] [address] [facility] [place] [address] Iron deficiency anemia, unspecified iron deficiency anemia type; Dark stools Allergies Active Allergy Reactions Severity Noted Date Comments Azithromycin Other (Please comment) 12/04/2021 QTC prolongation at [facility] Celecoxib Hives,Rash High 03/24/2013 Other [...] as of this encounter (statuses as of 04/11/2023) Medications Medication Sig Dispensed Refills Start Date [...] 3 08/05/2022 08/05/2023 Active OneTouch Delica Plus [id number] USE 2 TIMES A DAY DIRECTED 200 [...] s:PVD (peripheral vascular disease) ([facility]),Type 2 diabetes mellitus with stage 3a chronic kidney disease and hypertension (HCC) TAKE ONE TABLET BY MOUTH EVERY DAY DIRECTED 100 Tablet 3 03/31/2023 Active Ipratropium [place] 0.03 % Nasal Solution (Atrovent)Indicatio ns:Chronic rhinitis [...] as of this encounter (statuses as of 04/11/2023) Active Problems Problem Noted Date S/P mitral valve clip implantation 03/06 Atherosclerosis of [place] coronary arter y without angina pectoris 02/13/2023 Last Assessment & Plan: Continue statin, sotalol. 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 No-[place] can hear w/ hearing aid 03/07/2023 Are [...] Specialty Care Team Description 3 Office Visit Hematology Oncology [facility]z [facility] [address] [facility] [place] [id number] PENDING VISIT DRAFT 3 Office Visit Cardiology Wilbur Rivera MD [address] [facility] [place] [address] 3 Office Visit Family Medicine Florentin Calvo, DO [address] [place] [address] 3 Office Visit Otolaryngology Blair Dupree, DO [address] [place] [address] 3 Hospital Encounter Endoscopy Jana Vieira, DO [address] [place] [address] 3 Surgery Endoscopy Jana Vieira, DO [address] [place] [address] ESOPHAGOGASTRODUODENOSCOPY (EGD), FLEXIBLE, TRANSORAL, ENDOSCOPIC ULTRASOUND 3 Office Visit Nephrology Rosario Green MD 200 [place] [address] 3 Cardiac Studies Cardiac Studies 3 Office Visit Ophthalmology Wilbur Benavides, DO [address] [place] [address] 3 Office Visit Family Medicine Florentin Calvo, DO [address] [place] [address] 3 Home Visit [facility] Mónica Angeles, RN [address] [place] [address] 3 Office Visit Cardiology Stephen Hewitt, DO [address] [place] [address] 4 Office Visit Gynecology Oncology Chris Peng PA-C [address] [place] [address] Scheduled Procedures Name Priority Associated Diagnoses Date/Ti me ESOPHAGOGASTRODUODENOSCOPY ( EGD), FLEXIBLE, TRANSORAL, ENDOSCOPIC ULTRASOUND Elevated liver function tests 04/30/2023 10:15 AM EDT Health Maintenance Due Date Last Done Comments DIABETES-EYE EXAM 04/11/2023 04/11/2022, , 04/11/2022, Additional history exists Influenza Vaccine (FLU shot) (#1) 2023 05/15/2022, 05/22/2021, 04/19/2020, Additional history exists CKD PHOS USE SMARTSET 62930 05/01/2023 09/0 02/2022, 04/03/2022, 12/05/2020, Additional history exists HbA1c 08/23/2023 02/21/2023, 01/0 10/2022, 04/03/2022, Additional history exists TSH 09/24/2023 09/24/2022, 01/0 10/2022, 02/12/2022, Additional history exists DIABETES-FOOT EXAM 10/01/2023 10/01/2022, 0 10/26/2021, 12/05/2020, Additional history exists GFR 10/02/2023 04/01/2023, 07/08/2022, 03/07/2023, Additional history exists Albumin/Creatinine Ratio 02/22/2024 023, 05/01/2022, 10/26/2021, Additional history exists Depression Screening, Annual for Pts 12 and Over 04/01/2024 04/01/2023 CKD HGB USE SMARTSET 20047 04/11/202404/11, 04/11/2023, 04/01/2023, Additional history exists DXA [...] this encounter Medical Devices Implanted Type Area [employer] Device Identifier Shelf Expiration Date Model / Serial / Lot Cath Thermodilution 6fr - [id number] Implanted:Qty: 1 on 01/24/2023 by Wilbur Rivera MD at [facility] [employer] [id number] 10/15/2024 [id number] / / [id number] Mirtaclip G4 - [id number] Implanted:Qty: 1 on 03/10/2023 at [facility] [employer] 11/19/2023 [id number] / / [id number] documented as of this encounter Procedures Procedure Name Priority Date/Time Associated Diagnosis Comments DIFFERENTIAL, AUTOMATED STAT 04/11/2023 1:15 PM EDT Iron deficiency anemia, unspecified iron deficiency anemia type CBC WITH WBC DIFFERENTIAL STAT 04/11/2023 1:15 PM EDT Iron deficiency anemia, unspecified iron deficiency anemia type CBC STAT 04/11/2023 1:15 PM EDT Iron deficiency anemia, unspecified iron deficiency anemia type documented in this encounter Results * (ABNORMAL) DIFFERENTIAL, AUTOMATED (04/11/2023 1:15 PM EDT) [facility] WBC 7.54 4.00 - 10.80 K/uL 04/11/2023 1:19 PM EDT [facility] [place] 56[facility]02 Neutrophils % 66.8 40.0 - 75.0 % 04/11/2023 1:19 PM EDT [facility] [place] 56[facility]02 Lymphocytes % 14.1(L) 18.0 - 42.0 % 04/11/2023 1:19 PM EDT [facility] [place] 56-02 Monocytes % 11.1(H) 1.0 - 11.0 % 04/11/2023 1:19 PM EDT [facility] [place] 56-02 Eosinophils % 7.7(H) 0.0 - 6.0 % 04/11/2023 1:19 PM EDT [facility] [place] 56-02 Basophils % 0.3 0.0 - 2.0 % 04/11/2023 1:19 PM EDT [facility] [place] 56-02 Absolute Neutrophils 5.04 1.80 - 7.70 K/uL 04/11/2023 1:19 PM EDT [facility] [place] 56-02 Absolute Lymphocytes 1.06 1.00 - 4.80 K/ul 04/11/2023 1:19 PM EDT [facility] [place] 56-02 Absolute Monocytes 0.84 0.00 - 1.10 K/uL 04/11/2023 1:19 PM EDT [facility] [place] 56-02 Absolute Eosinophils 0.58 0.00 - 0.70 K/uL 04/11/2023 1:19 PM EDT [facility] [place] 56-02 Absolute Basophils 0.02 0.00 - 0.20 K/uL 04/11/2023 1:19 PM EDT [facility] 56-02 Blood Venous blood specimen / Unknown Venipuncture / Unknown 04/11/2023 1:15 PM EDT 04/11/2023 1:15 PM EDT Nereyda Metz [facility] BLOOD ORDER [place] [address] [place], [place] [id number] * (ABNORMAL) CBC (04/11/2023 1:15 PM EDT) WBC 7.54 4.00 - 10.80 K/uL 04/11/2023 1:19 PM EDT [place] [address] RBC 3.66 3.85 - 5.15 M/uL 04/11/2023 1:19 PM EDT [place] [address] HGB 10.9(L) 12.0 - 15.3 g/dL 04/11/2023 1:19 PM EDT [place] [address] HCT 34.1(L) 36.0 - 45.2 % 04/11/2023 1:19 PM EDT [place] [address] MCV 93.2 81.5 - 97.5 fL 04/11/2023 1:19 PM EDT [place] [address] MCH 29.8 27.0 - 34.0 pg 04/11/2023 1:19 PM EDT [place] [address] MCHC 32.0 32.0 - 36.0 g/dL 04/11/2023 1:19 PM EDT [place] [address] RDW 17.3 11.5 - 15.5 % 04/11/2023 1:19 PM EDT [address] 167 140 - 400 K/uL 04/11/2023 1:19 PM EDT [address] MPV 9.4 6.6 - 11.1 fL 04/11/2023 1:19 PM EDT [facility] 56 Blood Venous blood specimen / Unknown Venipuncture / Unknown 04/11/2023 1:15 PM EDT 04/11/2023 1:15 PM EDT Nereyda Metz [facility] [place] 56-02 [address] [place] [address] documented in this encounter Visit Diagnoses Diagnosis Iron deficiency anemia, unspecified iron deficiency anemia type Dark stools Nonspecific abnormal finding in stool contents Elevated liver function tests Other abnormal blood chemistry documented in this encounter Advance Directives Documents on File Type Date Recorded 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
--- OUTSIDE RECORDS SUMMARY | 2023-08-14 23:39 | External Medical Summary | Summary of Care ---
Author Name Unknown Organization [facility] Address [address] [place] [address] Phone [phone] Care Team Providers Care Data Support Specialist Name Role Phone Florentin Calvo DO Primary Care Provider [phone] Reason for Visit * Reason Comments Follow Up Encounter Details Date Type Department Care Team Description 04/16/2023 Office Visit Cardiology, [facility] [address] [place] [address] Wilbur Rivera MD [address] [place] [address] Paroxysmal atrial fibrillation (HCC)* Allergies [...] 3 08/05/2022 08/05/2023 Active OneTouch Delica Plus [id number] USE 2 TIMES A DAY DIRECTED 200 [...] DIRECTED 100 Tablet 3 03/31/2023 Active Ipratropium [place] 0.03 % Nasal Solution (Atrovent)Indicatio ns:Chronic rhinitis [...] mitral valve clip implantation 03/06 Atherosclerosis of [place] coronary arter y without angina pectoris 02/13/2023 [...] Obstructive sleep apnea of adult 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 [id number] score of 7 (age 2, female, CHF,DM, [...] MOUTH EVERY DAY DIRECTED 100Tablet 3 Ipratropium [place] 0.03 % Nasal Solution (Atrovent) Administer 2 Sprays into nostril in the morning and 2 Sprays before bedtime. 90 mL 3 Sotalol HCl 80 MG Oral Tablet (Betapace) Take 0.5 Tablets by mouth in the morning and 0.5 Tablets before bedtime. 300 Tablet 3 [facility] w/Device Kit Use up to 1 times a day. 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 Pleural effusion Pulmonary arterial hypertension ([facility]) Pure hypercholesterolemia 07/02/2021 PVD (peripheral vascular disease) ([facility]) 05/15/2022 Retinopathy Secondary hyperparathyroidism, renal ([facility]) 12/17/2018 Severe mitral valve regurgitation 10/30/2022 Severe tricuspid regurgitation 11/18/2022 Spinal stenosis 07/2002 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 claudication 03/24/2013 Vertigo 03/24/2013 Past Surgical History: Procedure Laterality Date COLONOSCOPY, DIAGNOSTIC (RECTUM) 10/12/2014 inflammatory tissue on bx, diverticulosis/[facility] COLONOSCOPY, DIAGNOSTIC (RECTUM) 01/05/2016 diverticulosis, multiple non-bleeding colonic angioectasias COLONOSCOPY, DIAGNOSTIC (RECTUM) 04/15/2016 angiodysplastic lesion, diverticulosis/COLONOSCOPY FLEXIBLE PROXIMAL DIAGNOSTIC performed by Izzy Stone MD at ENDOSCOPY [facility] COLONOSCOPY, DIAGNOSTIC (RECTUM) 11/10/2020 Hemorrhoids, multi polyps, diverticulosis in sigmoid colon/ biopsy show adenomatous polyp/ COLONOSCOPY FLEXIBLE PROXIMAL DIAGNOSTIC performed by Maine Stone MD at ENDOSCOPY [facility] COLONOSCOPY, DIAGNOSTIC (RECTUM) 03/11/2022 poor prep / [facility] CORONARY ANGIOGRAPHY W/RIGHT+LEFT CATH Right 01/24/2023 CORONARY ANGIOGRAPHY W/RIGHT+LEFT CATH performed by Wilbur Rivera MD at [facility] CYSTOSCOPY 06/2012 EGD, FLEXIBLE, DIAGNOSTIC 10/12/2014 normal bx, HH/[facility] EGD, FLEXIBLE, DIAGNOSTIC 01/05/2016 ESOPHAGOGASTRODUODENOSCOPY (EGD), FLEXIBLE, TRANSORAL, DIAGNOSTIC performed by Maine Stone MD at ENDOSCOPY [facility] EGD, FLEXIBLE, DIAGNOSTIC 03/11/2022 Multiple small non-bleeding fundic gland polyps / [facility] EGD, FLEXIBLE, DIAGNOSTIC 12/09/2022 mild-mod inflammation / [facility] LAPAROSCOPY TOTAL HYSTX, UTERUS 250GM OR LESS TUBE/OVARY N/A 02/22/2020 ROBOTIC LAPAROSCOPIC HYSTERECTOMY REMOVAL TUBES AND OVARIES FOR UTERUS 250GM OR LESS performed by Florentin Perez MD at OR [facility] LAPAROSCOPY; CHOLECYSTECTOMY N/A 06/06/2020 LIGATE/CUT OVIDUCT(S) MAMMOGRAM BREAST NEEDLE BIOPSY CORE LEFT Left 09/19/2015 benign NECK SPINE FUSION (CERV, BELOW C2) 1993 1999,2011 PATIENT EDU, LUMBAR LAMINECTOMY 2001 1996 too NC TONSILLECTOMY PRIMARY/SECONDARY LESS THAN AGE 12 Bilateral REPAIR RUPTURED ROTATOR CUFF, ACUTE Left 08/08/2015 SINUS SURGERY PROCEDURE NEC 1994 TRANSCATH REPAIR MITRAL VALVE, INITIAL Bilateral 03/06/2023 TRANSCATHETER MITRAL VALVE REPAIR performed by Wilbur Rivera MD at [facility] Family History Problem [...] Reviewed Below: Device Clinic 03/27/2023 0% AFIB Lucas Battery 11.25 years Echo 09/2022 The examination [...] fibrillation (HCC) -Paroxysmal atrial fibrillation, on sotalol. Lucas of 0.% per ppm interrogation 03/2023. -Zio monitor 06/04/2022 demonstrated paroxysmal atrial fibrillation. -[id number] score of 7 (age 2, female, CHF,DM, [...] with all emergencies advised. JESS Gonzalez Cardiology, [address] [address] I spent a total of 50 minutes on the date of service in preparation, delivery, and documentation ofthe care provided to Inga Barakat excluding any time spent in the performance of separately billed services. This chart was completed in part utilizing [employer] Speech Voice Recognition Software. Grammatical errors, random [...] Pain/SOB: Denies CP. Reports improvement in SOB [facility] Discussed: No My [employer]er is a way you can talk to [...] Visit Family Medicine Florentin Calvo, DO [address] [place] [address] 3 Office Visit Otolaryngology Blair Dupree, DO [address] [place], [place] [address] 3 Hospital Encounter Endoscopy Jana Vieira, DO [address] [place] [address] 3 Surgery Endoscopy Jana Vieira, DO [address] [place] [address] ESOPHAGOGASTRODUODENOSCOPY (EGD), FLEXIBLE, TRANSORAL, ENDOSCOPIC ULTRASOUND 3 Office Visit Nephrology Rosario Green MD 200 [place] [address] 3 Cardiac Studies Cardiac Studies 3 Office Visit Ophthalmology Wilbur Benavides, DO [address] [place] [address] 3 Office Visit Family Medicine Florentin Calvo, DO [address] [place] [address] 3 Home Visit [facility] Mónica Angeles RN [address] [place] [address] 3 Office Visit Cardiology Stephen Hewitt, DO [address] [place], [place] [address] 4 Office Visit Hematology Oncology Nereyda Metz CRNP [address] [facility] [place] [id number] 4 Office Visit Gynecology Oncology Chris Peng PA-C [address] [facility] [place] [address] Scheduled Procedures Name Priority Associated Diagnoses Date/Ti me ESOPHAGOGASTRODUODENOSCOPY ( EGD), FLEXIBLE, TRANSORAL, ENDOSCOPIC ULTRASOUND Elevated liver function tests 04/30/2023 10:15 AM EDT Health Maintenance Due Date Last Done Comments DIABETES-EYE EXAM 04/11/2023 04/11/2022, , 04/11/2022, Additional history exists Influenza Vaccine (FLU shot) (#1) 2023 05/15/2022, 05/22/2021, 04/19/2020, Additional history exists CKD PHOS USE SMARTSET 66743 05/01/2023 09/0 02/2022, 04/03/2022, 12/05/2020, Additional history [...] Over 04/01/2024 04/01/2023 CKD HGB USE SMARTSET 53294 04/11/202404/11, 04/11/2023, 04/01/2023, Additional history exists DXA [...] this encounter Medical Devices Implanted Type Area Global Director Air And Climate Change Device Identifier Shelf Expiration Date Model / Serial / Lot Cath Thermodilution 6fr - [id number] Implanted:Qty: 1 on 01/24/2023 by Wilbur Rivera MD at [facility] [employer] [id number] 10/15/2024 [id number] / / [id number] Mirtaclip G4 - [id number] Implanted:Qty: 1 on 03/10/2023 at [facility] [employer] 11/19/2023 [id number] / [id number] documented as of this encounter Visit Diagnoses Diagnosis Paroxysmal atrial fibrillation (HCC)- Primary Atrial fibrillation Elevated liver function tests Other abnormal blood chemistry documented in this encounter Advance Directives Documents on File Type Date Recorded 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 Advance Directives and Living Will 11/29/2022 ADVANCE DIRECTIVE / LIVING WILL Power of Diathermy Equipment Repairer 11/29/2022 POWER OF A TTORNEY Advance Directives and Living Will 10/24/2014 ADVANCE DIRECTIVE / LIVING WILL Power of Diathermy Equipment Repairer 10/24/2014 POWER OF A TTORNEY Latest Code [...] Agents on File Name Relationship Healthcare Agent [facility] Communication [facility] Adult Child Health Care Agen t (per Health Care Power of Diathermy Equipment Repairer document) Care Teams Data Support Specialist Relationship Specialty Start Date End Date Florentin Calvo, DO [address] [place] [address] PCP - General Internal Medicine 03/24/13 documented as of this encounter
--- OUTSIDE RECORDS SUMMARY | 2023-08-14 23:40 | External Medical Summary | Summary of Care ---
Author Name Unknown Organization [facility] Address [address] [place] [address] Phone [phone] Care Team Providers Care Temporary Receptionist Name Role Phone Florentin Calvo DO Primary Care Provider Reason for Referral * Evaluate & Treat - Unlimited Visits (Within 30 days (routine)) - Authorized Specialty Diagnoses / Procedures Referred By Danny mcdowell Referred To Contact CARDIAC REHAB / Cardiology Diagnoses 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) Nonrheumatic mitral valve regurgitation Nonrheumatic tricuspid valve regurgitation Emelina Aden CRNP [address] [place] [address] Referral ID Status Reason Start Date Expiration Date Visits Requested Visits Authorized [id number] Authorized Specialty Services Required 04/07/2023 999 999 Question Answer Referral Priority Within 30 days (routine) Cardiac Rehabilitation Modality Virtual Based Cardiac Rehab Only Identify Cardiac Risk Low to Moderate Risk * Precert (Within 10 days (routine)) - Authorized Specialty Diagnoses / Procedures Referred By Danny mcdowell Referred To Contact Cardiac Studies Diagnoses 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) Nonrheumatic mitral valve regurgitation Nonrheumatic tricuspid valve regurgitation Procedures ECHO, COMPLETE (2D), TRANS-THORACIC Emelina Aden CRNP [address] [place] [address] Referral ID Status Reason Start Date Expiration Date V isits Requested Visits Authorized [id number] Authorized Precert 03/25/2024 999 999 Reason for Visit * Reason Comments Follow Up Encounter Details Date Type Department Care Team Description 04/07/2023 Office Visit Cardiology, [facility] [address] [place] [address] Emelina Aden CRNP [address] [place] [address] 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)*; Nonrheumatic mitral valve regurgitation; Nonrheumatic tricuspid valve regurgitation; Status post implantation of mitral valve leaflet clip; Paroxysmal atrial fibrillation (HCC); SSS (sick sinus syndrome) ([facility]); Cardiac pacemaker in situ Allergies Active Allergy Reactions Severity Noted Date Comments Azithromycin Other (Please comment) 12/04/2021 QTC prolongation at [facility] Celecoxib Hives,Rash High 03/24/2013 Other [...] as of this encounter (statuses as of 04/07/2023) Medications Medication Sig Dispensed Refills Start Date End Date Status OneTouch Verio w/Device KitIndications:Type 2 diabetes mellitus with hemoglobin A1c goal of less than 7.0% ([facility]) Use up to 1 times [...] 3 08/05/2022 08/05/2023 Active OneTouch Delica Plus [id number] USE 2 TIMES A DAY DIRECTED 200 [...] (Lipitor)Indication s:PVD (peripheral vascular disease) ([facility]),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 90 mL 3 04/01/2023 Active Hospital, Clinic, or Other Facility Administered [...] as of this encounter (statuses as of 04/07/2023) Active Problems Problem Noted Date S/P mitral valve clip implantation 03/06 Atherosclerosis of [place] coronary arter y without angina pectoris 02/13/2023 Last Assessment & Plan: Continue statin, sotalol. 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 Last Assessment & Plan: Now just using [...] as of this encounter (statuses as of 04/07/2023) Resolved Problems Problem Noted Date Resolved Date [...] 08/20/2017 08/20/2017 HTN, goal below 140/90 02/05/2016 Overview: Per HTN Protocol Atrial flutter 08/31/2014 02/24/2019 Kidney disease, chronic, stage III (GFR 30-59 ml /min) 10/18/2013 01/15/2018 Overview: Per CKD protocol #1 HTN, goal below 140/80 03/24/2013 6 Overview: Per HTN Protocol Asthma, moderate persistent 03/24/201308/26 Depression 03/24/2013 05/31/2020 documented as of this encounter (statuses as of 04/07/2023) Immunizations Name Administration Dates Next Due COVID-19 [...] 04/19/2020 Seasonal Influenza, Quadriva lent, No Preserve, 6 Mons & Above, IM 04/28/2018,05/28/2017 Seasonal Influenza, Quadriva lent, No Preserve, IM [...] Sign Reading Time Taken Comments Blood Pressure 118/56 04/07/2023 11:18 AM EDT Pulse 80 04/07/2023 11:18 AM EDT Temperature - - Respiratory Rate 14 04/07/2023 11:18 AM EDT Oxygen Saturation - - Inhaled Oxygen Concentration - - Weight 70.8 kg (156 lb) 04/07/2023 11:18 AM EDT Height - - Body Mass Index 25.96 04/01/2023 11:16 AM EDT documented in this encounter Functional Status Functional Status Response Date of Assess ment Are you deaf or do you have serious difficulty hearing? No-[facility] can hear w/ hearing aid 03/07/2023 Are [...] as of this encounter Progress Notes * Emelina Greeriso, JESS - 04/07/2023 2:00 PM EDT Valve Clinic Cardiology Outpatient Clinic Note 04/07/2023 Patient disposition: 1 mos post MitraClip placement Primary Car Hiker: Dr. Hewitt and Abigail Goncalves PA-C Past medical history: 1. Chronic diastolic CHF secondary to valvular insufficiency a. Moderate to severe MR and severe TR, status post MitraClip XT W and mitral clip XT, 03/06/2023 2. Severe pulmonary hypertension, also following with Pulmonary 3. History of sick sinus syndrome with recurrent syncope, status post LINQ, now status post dual chamber permanent pacemaker 07/2022 4. Paroxysmal atrial fibrillation, on sotalol. a. [id number]-[id number] score of 7 (age 2, female, CHF,DM, TIA 2)- Not on AC due to severe GIB in the past 5. Hx of TIA- Eliquis restarted 10/2022- discontinued due to significant anemia 11/2022 6. Hypertension 7. Aneurysm of the left carotid artery 8. AV malformations 9. CKD stage 3 10. Diabetes 11. 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 Hypothyroidism 14. Anemia, receiving iron infusions HPI 82-year-old female presenting to the valve clinic today in close follow-up after MitraClip placement due to severe symptomatic mitral regurgitation on 03/06/2023. HOSPITAL COURSE (focused): Patient reported to [facility] for mitral valve clip placement in the [...] of one mitraclip XTW and one mitraclip XTdevice/s At discharge patient is torsemide was increased to 40 mg daily and patient followed up with Dr. Hewitt on 03/17. At this time she was doing well in her volume status was well controlled. Torsemide wasreduced to 20 mg daily and Jardiance was held. Today the patient presents feeling well and offers no acute concerns. States that she feels great and has noticed a significant improvement in her overall functional capacity. She walks with a Rollator. She is euvolemic on exam. Denies any chest pain or shortness of breath. Does admit to living a sedentary lifestyle but is doing physical therapy at home. No palpitations, lightheadedness or dizziness. No orthopnea or PND. No lower extremity edema. She has been having diarrhea and abnormal LFTs in his looking to have an endoscopy done in April. She states she is compliant with all medications, and offers no side effects. Echo scheduled for 05/14. Current Outpatient Medications Medication Sig Dispense Refill Sportingo Verio w/Device Kit Use up to 1 times a day. E11.9 1 Kit 0 Aspirin 81 MG Oral Tablet Delayed Release Take 1 Tablet by mouth daily. Acetaminophen 325 MG Oral Tablet (Tylenol) Take 2 Tablets by mouth every 6 hours as needed. 100Tablet 0 Vitamin D3 50 MCG (2000 UT) [...] 1 Puff before bedtime. 60 Each 2 OneTouch Verio In Vitro Strip (Glucose Blood) Test blood sugars up to 2 times a day E11.9 200 Strip 3 Pantoprazole Sodium 40 MG Oral Tablet [...] ONE TABLET BY MOUTH AT BEDTIME 100 Tablet3 OneTouch Delica Plus [id number] USE 2 TIMES A DAY DIRECTED 200 Each 3 Torsemide 20 MG Oral Tablet (Demadex) Take 1 Tablet by mouth in the morning. 100 Tablet 3 Sertraline HCl 100 MG Oral Tablet (Zoloft) Take 1.5 Tablets by mouth in the morning. 150 Tablet1 Ferrous Sulfate 325 (65 Fe) MG Oral Tablet (Feosol) Take 1 Tablet by mouth daily with breakfast. 100 Tablet 1 Atorvastatin Calcium 20 MG Oral Tablet (Lipitor) TAKE ONE TABLET BY MOUTH EVERY DAY [id number] Tablet 3 Ipratropium Austin 0.03 % Nasal Solution (Atrovent) Administer 2 Sprays into nostril in the morning and 2 Sprays before bedtime. 90 mL 3 Current Facility-Administered Medications Medication Dose Route Frequency Provider Last Rate Last Admin Albuterol Sulfate (Proventil) (2.5 MG/3ML) 0.083% inhalation solution 2.5 mg 2.5 mg Nebulizer PRN Abigail Goncalves PA-C Albuterol Sulfate (Proventil) (5 MG/ML) 0.5% *conc* inhalation solution 2.5 mg 2.5 mg NebulizerPRN Abigail Goncalves PA-C Albuterol Sulfate (Proventil) (5 MG/ML) 0.5% *conc* inhalation solution 2.5 mg 2.5 mg NebulizerPRN JESS Vaca Albuterol Sulfate (Proventil) (2.5 MG/3ML) 0.083% inhalation solution 2.5 mg 2.5 mg Nebulizer PRN JESS Vaca 2.5 mg at 10/31/22 1441 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 Obstructive sleep apnea of adult 09/09/2014 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 Pleural effusion Pulmonary arterial hypertension ([facility]) Pure hypercholesterolemia 07/02/2021 PVD (peripheral vascular disease) ([facility]) 05/15/2022 Retinopathy Secondary hyperparathyroidism, renal ([facility]) 12/17/2018 Severe mitral valve regurgitation 10/30/2022 Severe tricuspid regurgitation 11/18/2022 Spinal stenosis 07/2002 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 claudication 03/24/2013 Vertigo 03/24/2013 Past Surgical History: Procedure Laterality Date COLONOSCOPY, DIAGNOSTIC (RECTUM) 10/12/2014 inflammatory tissue on bx, diverticulosis/[facility] COLONOSCOPY, DIAGNOSTIC (RECTUM) 01/05/2016 diverticulosis, multiple non-bleeding colonic angioectasias COLONOSCOPY, DIAGNOSTIC (RECTUM) 04/15/2016 angiodysplastic lesion, diverticulosis/COLONOSCOPY FLEXIBLE PROXIMAL DIAGNOSTIC performed by Izzy Stone MD at ENDOSCOPY [facility] COLONOSCOPY, DIAGNOSTIC (RECTUM) 11/10/2020 Hemorrhoids, multi polyps, diverticulosis in sigmoid colon/ biopsy show adenomatous polyp/ COLONOSCOPY FLEXIBLE PROXIMAL DIAGNOSTIC performed by Maine Stone MD at ENDOSCOPY [facility] COLONOSCOPY, DIAGNOSTIC (RECTUM) 03/11/2022 poor prep / [facility] CORONARY ANGIOGRAPHY W/RIGHT+LEFT CATH Right 01/24/2023 CORONARY ANGIOGRAPHY W/RIGHT+LEFT CATH performed by Wilbur Rivera MD at [facility]ARDIAC [facility]S [facility] CYSTOSCOPY 06/2012 EGD, FLEXIBLE, DIAGNOSTIC 10/12/2014 normal bx, HH/[facility] EGD, FLEXIBLE, DIAGNOSTIC 01/05/2016 ESOPHAGOGASTRODUODENOSCOPY (EGD), FLEXIBLE, TRANSORAL, DIAGNOSTIC performed by Maine Stone MD at ENDOSCOPY [facility] EGD, FLEXIBLE, DIAGNOSTIC 03/11/2022 Multiple small non-bleeding fundic gland polyps / [facility] EGD, FLEXIBLE, DIAGNOSTIC 12/09/2022 mild-mod inflammation / [facility] LAPAROSCOPY TOTAL HYSTX, UTERUS 250GM OR LESS TUBE/OVARY N/A 02/22/2020 ROBOTIC LAPAROSCOPIC HYSTERECTOMY REMOVAL TUBES AND OVARIES FOR UTERUS 250GM OR LESS performed by Florentin Perez MD at OR [facility] LAPAROSCOPY; CHOLECYSTECTOMY N/A 06/06/2020 LIGATE/CUT OVIDUCT(S) MAMMOGRAM BREAST NEEDLE BIOPSY CORE LEFT Left 09/19/2015 benign NECK SPINE FUSION (CERV, BELOW C2) 1993 1999,2011 PATIENT EDU, LUMBAR LAMINECTOMY 2001 1996 too NE TONSILLECTOMY PRIMARY/SECONDARY LESS THAN AGE 12 Bilateral REPAIR RUPTURED ROTATOR CUFF, ACUTE Left 08/08/2015 SINUS SURGERY PROCEDURE NEC 1994 TRANSCATH REPAIR MITRAL VALVE, INITIAL Bilateral 03/06/2023 TRANSCATHETER MITRAL VALVE REPAIR performed by Wilbur Rivera MD at [facility]ARDIAC LABS [facility] Social History Tobacco Use Smoking status: Former [...] Azithromycin Other (Please comment) QTC prolongation at [facility] Nickel Swelling Other reaction(s): Unknown Review of Systems: See HPI for pertinent positives. All others negative, other than those noted in HPI. Physical Exam BP 118/56 | Pulse 80 | Resp 14 | Wt 70.8 kg (156 lb) | BMI 25.96 kg/m | BSA 1.8 m General: No acute distress. A+Ox3. HEENT: Normocephalic. Atraumatic. Conjunctiva and sclera clear. NECK: No carotid bruits. No JVD. Carotid upstrokes are brisk. Heart: RRR. S1 and S2 noted. +1/6 diastolic murmur Lungs: Clear to auscultation. No wheezing rhonchi or rales. Abdomen: Normal bowel sounds. Soft. Nontender. No masses or organomegaly. No abdominal bruits. Extremities: No edema. No clubbing or cyanosis. Pulses: radial=2/4, posterior tibial=2/4, dorsalis pedis = 2/4. NEURO: No focal deficits. PSYCH: Normal. Lab data/imaging study review: Echo 09/2022 The examination is adequate to [...] 08/01/2022, ongoing severe pulmonary hypertension is present Impression/Plan: 1. 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) 2. Nonrheumatic mitral valve regurgitation 3. Nonrheumatic tricuspid valve regurgitation 4. Pulmonary hypertension (HCC) -Chronic diastolic CHF secondary to valvular insufficiency -Moderate to severe MR and severe TR, status post MitraClip XT W and mitral clip XT, 03/06/2023 -Severe pulmonary hypertension, also following with Pulmonary -NYHA class 2 1. Patient appears euvolemic on exam. Continue torsemide 20 mg daily. Patient was educated on signsand symptoms of worsening fluid retention and when to call the office. 2. No routine dental work for the 1st 6 months following MitraClip. Antibiotics are needed for all dental work thereafter. 3. Recommend in-home cardiac rehab, patient will reach out to our office when her home physical therapy is complete. 5. Paroxysmal atrial fibrillation 6. Sick sinus syndrome 7. Status post permanent pacemaker -Paroxysmal atrial fibrillation, on sotalol. [place] of 0.2% per ppm interrogation 09/2022. -[id number] score of 7 (age 2, female, CHF,DM, TIA 2)- prior history of GI bleed on anticoagulation 1. Will be seeing Dr. Rivera at the end of the month to discuss possible Watchman implantation. The patient agrees to the above plan and will call with additional questions or concerns. ER with all emergencies advised. Check-out note: Keep Miguel appt to discuss watchman implantation. 1 year follow up with miguel- rossana same day. Keep ML appt I spent a total of 40 minutes on the date of service in preparation, delivery, and documentation ofthe care provided to Inga Barakat excluding any time spent in the performance of separately billed services. JESS Cueto [facility], Department of Cardiology This chart was completed in part utilizing [email or web address] Speech Voice Recognition Software. Grammatical errors, random [...] Nursing Notes * Liz White LPN - 04/07/2023 11:17 AM EDT Examination Room: 4 Name: Inga Barakat Date of : 1940 Reason for Visit: Follow up Problems/Concerns: denies Interim Hosp(s): denies Chest Pain/SOB: denies MyChart Discussed: YES Patient was instructed to not get up [...] Date Type Specialty Care Team Description 3 Home Visit [facility] Mónica Angeles RN [address] [place] [address] 3 Laboratory Laboratory [place], [address] [place] [address] 3 Office Visit Hematology Oncology Nereyda Metz CRNP [address] [place] [address] 3 Office Visit Cardiology Wilbur Rivera MD [address] [place] [address] 3 Office Visit Family Medicine Florentin Calvo, DO [address] [place] [address] 3 Office Visit Otolaryngology Blair Dupree, DO [address] [place], [place] [address] 3 Hospital Encounter Endoscopy Jana Vieira, DO [address] [place], [place] [address] 3 Surgery Endoscopy Jana Vieira, DO [address] [place], [place] [address] ESOPHAGOGASTRODUODENOSCOPY (EGD), FLEXIBLE, TRANSORAL, ENDOSCOPIC ULTRASOUND 3 Office Visit Nephrology Rosario Green MD [address] [place] [address] 3 Cardiac Studies Cardiac Studies 3 Office Visit Ophthalmology Wilbur Benavides, DO [address] [place] [address] 3 Office Visit Family Medicine Florentin Calvo, DO [address] [place] [address] 3 Office Visit Cardiology Stephen Hewitt, DO [address] [place] [address] 4 Office Visit Gynecology Oncology Chris Peng PA-C [address] [place] [address] Scheduled Orders Name Type Priority Associated Diagnoses Orde r Schedule ECHO, COMPLETE (2D), TRANS-THORACIC Echocardiology Routine 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) Nonrheumatic mitral valve regurgitation Nonrheumatic tricuspid valve regurgitation Expected: 03/25/2024, Expires: 05/08/2025 Scheduled Procedures Name Priority Associated Diagnoses Date/Ti me ESOPHAGOGASTRODUODENOSCOPY ( EGD), FLEXIBLE, TRANSORAL, ENDOSCOPIC ULTRASOUND Elevated liver function tests 04/30/2023 10:15 AM EDT Scheduled Referrals Name Type Priority Associated Diagnoses Orde r Schedule CARDIAC REHAB REFERRAL OP Referral Within 30 days (routine) 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) Nonrheumatic mitral valve regurgitation Nonrheumatic tricuspid valve regurgitation Ordered: 04/07/2023 Health Maintenance Due Date Last Done Comments DIABETES-EYE EXAM 04/11/2023 04/11/2022, , 04/11/2022, Additional history exists Influenza Vaccine (FLU shot) (#1) 2023 05/15/2022, 05/22/2021, 04/19/2020, Additional history exists CKD PHOS USE SMARTSET 99810 05/01/2023 09/0 02/2022, 04/03/2022, 12/05/2020, Additional history exists HbA1c 08/23/2023 02/21/2023, 01/0 10/2022, 04/03/2022, Additional history exists TSH 09/24/2023 09/24/2022, 01/0 10/2022, 02/12/2022, Additional history exists DIABETES-FOOT EXAM 10/01/2023 10/01/2022, 0 10/26/2021, 12/05/2020, Additional history exists GFR 10/02/2023 04/01/2023, 02/23, 03/07/2023, Additional history exists Albumin/Creatinine Ratio 02/22/2024 023, 05/01/2022, 10/26/2021, Additional history exists CKD HGB USE SMARTSET 86985 04/01/202404/01, 03/14/2023, 03/14/2023, Additional history exists Depression Screening, Annual for Pts 12 and Over 04/01/2024 04/01/2023 DXA Scan 05/07/2025 05/07/2021, 12/24, 04/12/2013, Additional [...] this encounter Medical Devices Implanted Type Area Adoption Social Worker Device Identifier Shelf Expiration Date Model / Serial / Lot Cath Thermodilution 6fr - [id number] Implanted:Qty: 1 on 01/24/2023 by Wilbur Rivera MD at [facility] [employer] [id number] 10/15/2024 [id number] / / [id number] Mirtaclip G4 - [id number] Implanted:Qty: 1 on 03/10/2023 at [facility] [employer] 11/19/2023 [id number] / / [id number] documented as of this encounter Visit Diagnoses Diagnosis 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)- Primary Nonrheumatic mitral valve regurgitation Nonrheumatic tricuspid valve regurgitation Tricuspid valve disorders, specified as nonrheumatic Status post implantation of mitral valve leaflet clip Paroxysmal atrial fibrillation (HCC) Atrial fibrillation SSS (sick sinus syndrome) (HCC) Sinoatrial node dysfunction Cardiac pacemaker in situ Elevated liver function tests Other abnormal blood chemistry documented in this encounter Advance Directives Documents on File Type Date Recorded 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
--- OUTSIDE RECORDS SUMMARY | 2023-08-14 23:40 | External Medical Summary | Summary of Care ---
Author Name Unknown Organization [facility] Address [address] [place] [address] Phone [phone] Care Team Providers Care Electric Sign Wirer Name Role Phone Florentin Calvo DO Primary Care Provider [phone] Reason for Visit * Reason Comments Knee Pain right Encounter Details Date Type Department Care Team Description 04/01/2023 Office Visit [facility] [address] [facility] [address] Juvenal Carvalho DO [address] [facility] [address] Primary osteoarthritis of right knee* Allergies Active Allergy Reactions Severity Noted Date Comments Azithromycin Other (Please comment) 12/04/2021 QTC prolongation at [facility] Celecoxib Hives,Rash High 03/24/2013 Other reaction(s): [...] as of this encounter (statuses as of 04/01/2023) Medications Medication Sig Dispensed Refills Start Date [...] 3 08/05/2022 08/05/2023 Active OneTouch Delica Plus [id number] USE 2 TIMES A DAY DIRECTED 200 Each 3 04/30/2022 04/30/2023 Active Sotalol HCl 80 MG Oral Tablet (Betapace)Indicatio ns:Chronic atrial fibrillation (HCC) TAKE ONE-HALF TABLET BY MOUTH EVERY DAY IN THE MORNING AND 1/2 TABLET BEFORE BEDTIME. 90 Tablet 3 04/03/2022 04/03/2023 Active Torsemide 20 MG Oral Tablet (Demadex) [...] Oral Tablet (Lipitor)Indication s:PVD (peripheral vascular disease) ([facility]),Type 2 diabetes mellitus with stage 3a chronic kidney disease and hypertension ([facility]) TAKE ONE TABLET BY MOUTH EVERY DAY DIRECTED 100 Tablet 3 03/31/2023 Active Ipratropium [place] 0.03 % Nasal Solution (Atrovent)Indicatio ns:Chronic [...] as of this encounter (statuses as of 04/01/2023) Active Problems Problem Noted Date S/P mitral valve clip implantation 03/06 Atherosclerosis of [place] coronary arter y without angina pectoris 02/13/2023 Last Assessment & Plan: Continue statin, sotalol. 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 No[place] can hear w/ hearing aid 03/07/2023 Are [...] as of this encounter Progress Notes * Juvenal Carvalho DO - 04/01/2023 2:00 PM EDT Inga Barakat [id number] INJECTION NOTE Inga Barakat is a 82 year old female who presents to [facility] for Right knee PRP Prior to the PRP procedure it was verified that the patient has not taken any NSAIDS 2 weeks prior to the blood draw. After the injection they were informed to not take any NSAIDS 1 week after procedure and to not use ice. It is acceptable to use Tylenol (acetaminophen) sparingly. Please MyChart orcall back at 4, 8, and 12 weeks after the procedure. All questions were answered Here with daughter Assessment and Plan: 1) Primary osteoarthritis of right knee (Primary) - POINT OF CARE US - PLATELET RICH PLASMA INJECTION Juvenal Carvalho DO [place] [address] Procedure note, injection of platlet rich plasma (PRP),RIGHT knee: Time out: Prior to injection, a time out was called to confirm the administration of appropriate medicine, patient name, procedure and confirm to the best of our ability and knowledge the presence of any necessary risks and benefits. Patient verbalizes understanding. After [id number] of blood from peripheral site, blood is prepared using PRP centrifuge. 5.8ml buffy layer platlet rich plasma product was then injected at superior lateral recess Patient tolerated procedure well. Ultrasound was requiredhigh risk for complications without ultrasound guideance (risk for neurovascular damage)rightknee Counselled regarding risk for infection Juvenal Carvalho [place] [address] documented in this encounter Nursing Notes * Dayan Lopez LPN - 04/01/2023 2:00 PM EDT Right knee PRP. Dayan Kilpatrick LPN documented in this encounter Plan of Treatment Upcoming Encounters Date Type Specialty Care Team Description 04/01/2023 Imaging Radiology Arrived 04/01/2023 Laboratory Laboratory [place] Dominick Chavez [address] [place] [address] Status post implantation of mitral valve leaflet clip; Type 2 diabetes mellitus with stage 3b chronic kidney disease, without long-term current use of insulin (HCC); Chronic diastolic CHF (congestive heart failure) (HCC) 04/02/2023 Office Visit Vascular Surgery Stephen Wright PA-C [address] [place] [address] 04/07/2023 Office Visit Gastroenterology Janine Cunningham CRNP [address] [place] [address] 04/07/2023 Office Visit Cardiology Emelina Aden CRNP [address] [place] [address] 04/10/2023 Home Visit [facility] Mónica Angeles RN [address] [place] [address] 04/11/2023 Office Visit Hematology Oncology Nereyda Metz CRNP [address] [place] [address] 04/16/2023 Office Visit Cardiology Wilbur Rivera MD [address] [place] [address] 04/18/2023 Office Visit Family Medicine Florentin Calvo, [place] [address] 04/23/2023 Office Visit Otolaryngology Blair Dupree, DO [address] [place] [address] 05/09/2023 Office Visit Nephrology Rosario Green MD [address] [facility] [place] [address] 05/14/2023 Cardiac Studies Cardiac Studies 05/22/2023 Office Visit Ophthalmology Wilbur Benavides, DO [address] [place] [address] 05/23/2023 Office Visit Family Medicine Florentin Calvo, DO [address] [facility] [address] 06/17/2023 Office Visit Cardiology Stephen Hewitt, DO [address] [place] [address] 10/24/2023 Office Visit Gynecology Oncology Chris Peng PA-C [address] [place] [address] Health Maintenance Due Date Last Done Comments DIABETES-EYE EXAM 04/11/2023 04/11/2022, , 04/11/2022, Additional history exists Influenza Vaccine (FLU shot) (#1) 2023 05/15/2022, 05/22/2021, 04/19/2020, Additional history exists CKD PHOS USE SMARTSET 60595 05/01/202302/2022, 04/03/2022, 12/05/2020, Additional history exists HbA1c 08/23/2023 02/21/2023, 10/2022, 04/03/2022, Additional history exists GFR 09/14/2023 03/14/2023, 02/22, 03/06/2023, Additional history exists TSH 09/24/2023 09/24/2022, /10/2022, 02/12/2022, Additional history exists DIABETES-FOOT EXAM 10/01/2023 10/01/2022, 0 10/26/2021, 12/05/2020, Additional history exists Albumin/Creatinine Ratio 02/22/2024 023, 05/01/2022, 10/26/2021, Additional history exists CKD HGB USE SMARTSET 18955 03/14/202404/01, 03/14/2023, 03/14/2023, Additional history exists Depression Screening, Annual for Pts 12 and Over 03/14/2024 03/14/2023 DXA Scan 05/07/2025 05/07/2021, 12/24, 04/12/2013, Additional [...] this encounter Medical Devices Implanted Type Area Mechanical Project Engineer Device Identifier Shelf Expiration Date Model / Serial / Lot Cath Thermodilution 6fr - [id number] Implanted:Qty: 1 on 01/24/2023 by Wilbur Rivera MD at [facility] Send Word Now TERE [id number] 10/15/2024 [id number] / / [id number] Mirtaclip G4 - [id number] Implanted:Qty: 1 on 03/10/2023 at [facility] [employer] 11/19/2023 [id number] / / [id number] documented as of this encounter Procedures Procedure Name Priority Date/Time Associated Diagnosis Comments POINT OF CARE US - PLATELET RICH PLASMA INJECTION Routine 04/01/2023 1:06 PM EDT Primary osteoarthritis of right knee documented in this encounter Results * POINT OF CARE US - PLATELET RICH PLASMA INJECTION (04/01/2023 1:06 PM EDT) Anatomical Region Laterality Modality Any Radiographic Meenakshi ging 04/01/2023 1:06 PM EDT Narrative 04/01/2023 2:25 PM EDT [facility] - Ultrasound Program Exam Date: 04/01/2023 Exam Type: Ortho Pitching Coach: Juvenal Carvalho Attending: Juvenal Carvalho Worksheet: Ortho Injection Exam Information: Impression: Procedure note, injection of platlet rich plasma (PRP),?RIGHT?knee?: ? Time out: Prior to injection, a time out was called to confirm the administration of appropriate medicine, patient name, procedure and confirm to the best of our ability and knowledge the presence of any necessary risks and benefits. ? Patient verbalizes understanding. ?? After drawing?15?cc of blood from peripheral site, blood is prepared using PRP centrifuge. 5.8?ml buffy layer platlet rich plasma product was then injected at superior lateral recess Patient tolerated procedure well. ? Ultrasound was required?high risk for complications without ultrasound guideance (risk for neurovascular damage)?rightknee ? Counselled regarding risk for infection ? Juvenal Carvalho DO Primary Care Sports [facility] [place] [address] Physician Signature: I reviewed the images and approve the documentation above.: Signed by Juvenal Carvalho on Saturday, April 01, 2023 at 2:25:24 PM Procedure Note Juvenal Carvalho DO - 04/01/2023 [facility] - Ultrasound Program Exam Date: 04/01/2023 Exam Type: Ortho Pitching Coach: Juvenal Carvalho Attending: Juvenal Carvalho Worksheet: Ortho Injection Exam Information: Impression: Procedure note, injection of platlet rich plasma (PRP),?RIGHT?knee?: ? Time out: Prior to injection, a time out was called to confirm the administration ofappropriate medicine, patient name, procedure and confirm to the best ofour ability and knowledge the presence of any necessary risks andbenefits. ? Patient verbalizes understanding. ?? After drawing?15?cc of blood from peripheral site, blood is prepared usingPRP centrifuge. 5.8?ml buffy layer platlet rich plasma product was then injected atsuperior lateral recess Patient tolerated procedure well. ? Ultrasound was required?high risk for complications without ultrasoundguideance (risk for neurovascular damage)?rightknee ? Counselled regarding risk for infection ? Juvenal Carvalho, DO Primary Care Sports [facility] [place] [address] Physician Signature: I reviewed the images and approve the documentation above.: Signed byJuvenal Carvalho on Saturday, April 01, 2023 at 2:25:24 PM Juvenal Carvalho DO RAD ULTRASOUND documented in this encounter Visit Diagnoses Diagnosis Primary osteoarthritis of right knee- Primary Primary localized osteoarthrosis, lower leg Status post implantation of mitral valve leaflet clip Type 2 diabetes mellitus with stage 3b chronic kidney disease, without long-term current use of insulin (HCC) Chronic diastolic CHF (congestive heart failure) (HCC) Chronic diastolic heart failure documented in this encounter Advance Directives Documents on File Type Date Recorded Patient 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 Mechanic Expl anation Advance Directives and Living Will 11/29/2022 ADVANCE DIRECTIVE / LIVING WILL Power of Hyperion Analyst 11/29/2022 POWER OF A TTORNEY Advance Directives and Living Will 10/24/2014 ADVANCE DIRECTIVE / LIVING WILL Power of Hyperion Analyst 10/24/2014 POWER OF A TTORNEY Latest [...] Relationship Healthcare Agent Relationshi p Communication [facility] Adult Child Health Care Agen t (per Health Care Power of Hyperion Analyst document) Care Teams Electric Sign Wirer Relationship Specialty Start Date End Date Florentin Calvo, DO [address] [facility] [address] PCP - General Internal Medicine 03/24/13 documented as of this encounter
--- OUTSIDE RECORDS SUMMARY | 2023-08-14 23:40 | External Medical Summary | Summary of Care ---
Author Name Unknown Organization [facility] Address [address] [place] [address] Phone [phone] Care Team Providers Care Shipping And Receiving Specialist Name Role Phone Florentin Calvo DO Primary Care Provider [phone] Reason for Visit * Reason Comments Follow Up Encounter Details Date Type Department Care Team Description 04/02/2023 Office Visit Vascular Surgery, [facility] [place] [address] [facility] [place] [address] Stephen Wright PA-C [address] [place] [address] PVD (peripheral vascular disease) ([facility])*; Type 2 diabetes mellitus with hemoglobin A1c goal of less than 7.0% ([facility]); Paroxysmal atrial fibrillation ([facility]); Chronic diastolic CHF (congestive heart failure) ([facility]); 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 claudication; Acquired hypothyroidism; Obstructive sleep apnea of adult; Iron deficiency anemia, unspecified iron deficiency anemia type; Type 2 diabetes mellitus with polyneuropathy ([facility]); Moderate persistent asthma without complication; Pure hypercholesterolemia; Chronic kidney disease, stage 3b ([facility]); Cardiac pacemaker in situ; S/P mitral valve clip implantation Allergies Active Allergy Reactions Severity Noted Date Comments Azithromycin Other (Please comment) 12/04/2021 QTC prolongation at [facility] Celecoxib Hives,Rash High 03/24/2013 Other reaction(s): [...] as of this encounter (statuses as of 04/03/2023) Medications Medication Sig Dispensed Refills Start Date [...] 3 08/05/2022 08/05/2023 Active OneTouch Delica Plus [id number] USE 2 TIMES A DAY DIRECTED 200 [...] DIRECTED 100 Tablet 3 03/31/2023 Active Ipratropium Clements 0.03 % Nasal Solution (Atrovent)Indicatio ns:Chronic rhinitis [...] as of this encounter (statuses as of 04/03/2023) Active Problems Problem Noted Date S/P mitral valve clip implantation 03/06 Atherosclerosis of [place] coronary arter y without angina pectoris 02/13/2023 Last Assessment & Plan: Continue statin, sotalol. 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 ANALYST Last Assessment & Plan: Now just [...] as of this encounter (statuses as of 04/03/2023) Resolved Problems Problem Noted Date Resolved Date [...] as of this encounter (statuses as of 04/03/2023) Immunizations Name Administration Dates Next Due COVID-19 mRNA, LNP-s, No Pre serve, 2-Dose Series (Moderna) 06/23/2021,10/25/2020,09/28/2020 COVID-19, LNP-s, No Preserve , Larry-sucrose, Ages 12+ (Pfizer) 04/09/2022 Covid-19, Mrna, Lnp-s, Pf, B ivalent, 30 Mcg, IM, 12 yrs and above ([employer]) 09/10/2022 HEP A - Hepatitis A (Adult [...] Past Smokeless Tobacco: Never Tobacco Cessation:Counseling Given: No Alcohol Use Standard Drinks/Week Comments No 0 [...] Sign Reading Time Taken Comments Blood Pressure 112/58 04/02/2023 9:20 AM EDT Pulse 81 04/02/2023 9:20 AM EDT Temperature - - Respiratory Rate - - Oxygen Saturation - - Inhaled Oxygen Concentration - - Weight - - Height - - Body Mass Index - - documented in this encounter Functional Status Functional Status Response Date of Assess ment Are you deaf or do you have serious difficulty hearing? No-TYONEK can hear w/ hearing aid 03/07/2023 Are [...] as of this encounter Progress Notes * JESS Arguelles - 04/02/2023 9:30 AM EDT Date of Service: 04/02/2023 10:19 AM Inga Barakat is a 82 year old female. Patient being seen in consultation at the request of Florentin Calvo DO Chief Complaint: Ms. Barakat returns to clinic for routine surveillance of her PAD. S/P TMVR on 03/06/2023 after which she reports feeling markedly better overall. Ambulation continues to be limited with primary complaint of right knee pain which is be managed byOrtho with PRP injections to right knee. HPI: Very pleasant, reformed smoker who initially reported discolored and "cold" toes. 03/14/2021 PERRY suggested PAD. Long h/o neuropathy symptoms in both feet, lower legs, sock distribution. Reports she is on topamax for neuropathy. Minimally ambulatory which is multifactorial to include neuropathy pain, poor balance and chronic back pain in addition to knee pain as noted above.. PERIPHERAL VASCULAR DISEASE: No classic vasculogenic claudication. No rest pain. No ulcers. Reports sharp, shooting pains in feet, lower legs, sock distribution, perhaps R>L, but difficultto confirm. FAMILY HISTORY: Family history is noncontributory. Current Outpatient Medications Medication Sig Dispense Refill OneTouch Verio w/Device Kit Use up to [...] AT BEDTIME 100 Tablet3 OneTouch Delica Plus [id number] USE 2 TIMES A DAY DIRECTED 200 Each 3 Sotalol HCl 80 MG Oral Tablet (Betapace) TAKE ONE-HALF TABLET BY MOUTH EVERY DAY IN THE MORNINGAND 1/2 TABLET BEFORE BEDTIME. 90 Tablet 3 Torsemide 20 MG Oral Tablet [...] TAKE ONE TABLET BY MOUTH EVERY DAY [id number] Tablet 3 Ipratropium Clements 0.03 % Nasal Solution (Atrovent) Administer 2 [...] Other (Please comment) QTC prolongation at [facility] Nickel Swelling Other reaction(s): Unknown Patient Active Problem List Diagnosis Code Type 2 diabetes mellitus with hemoglobin A1c goal of less than 7.0% ([facility]) E11.9 Vertigo R42 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 claudication M48.061 Hypothyroidism E03.9 Displacement of cervical intervertebral disc without myelopathy M50.20 Meniere's disease H81.09 Paroxysmal atrial fibrillation ([facility]) I48.0 Obstructive sleep apnea of adult G47.33 Tremor R25.1 Iron deficiency anemia D50.9 Angiodysplasia of colon with hemorrhage K55.21 Acquired renal cyst N28.1 Controlled substance agreement signed Z79.899 Type 2 diabetes mellitus with polyneuropathy ([facility]) E11.42 Secondary hyperparathyroidism, renal ([facility]) N25.81 Pulmonary hypertension ([facility]) I27.20 Current moderate episode of major depressive disorder without prior episode ([facility]) F32.1 Moderate persistent asthma without complication J45.40 Gastro-esophageal reflux disease without esophagitis K21.9 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0 History of endometrial cancer Z85.42 Normocytic anemia D64.9 Primary osteoarthritis of right knee M17.11 Severe tricuspid regurgitation I07.1 History of TIA (transient ischemic attack) Z86.73 Atherosclerosis of [place] coronary artery without angina pectoris I25.10 S/P mitral valve clip implantation Z98.890, Z95.818 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 Obstructive sleep apnea of adult 09/09/2014 INTEGRITY ANALYST Pleural effusion Pulmonary arterial hypertension ([facility] [...] DIAGNOSTIC (RECTUM) 10/12/2014 inflammatory tissue on bx, diverticulosis/[facility] COLONOSCOPY, DIAGNOSTIC (RECTUM) 01/05/2016 diverticulosis, multiple non-bleeding colonic angioectasias COLONOSCOPY, DIAGNOSTIC (RECTUM) 04/15/2016 angiodysplastic lesion, diverticulosis/COLONOSCOPY FLEXIBLE PROXIMAL DIAGNOSTIC performed by Izzy Stone MD at ENDOSCOPY [facility] COLONOSCOPY, DIAGNOSTIC (RECTUM) 11/10/2020 Hemorrhoids, multi polyps, diverticulosis in sigmoid colon/ biopsy show adenomatous polyp/ COLONOSCOPY FLEXIBLE PROXIMAL DIAGNOSTIC performed by Maine Stone MD at ENDOS[facility] COLONOSCOPY, DIAGNOSTIC (RECTUM) 03/11/2022 poor [facility] / [facility] CORONARY ANGIOGRAPHY W/RIGHT+LEFT CATH Right 01/24/2023 CORONARY ANGIOGRAPHY W/RIGHT+LEFT CATH performed by Wilbur Rivera MD at [facility] CYSTOSCOPY 06/2012 EGD, FLEXIBLE, DIAGNOSTIC 10/12/2014 normal bx, /[facility] EGD, FLEXIBLE, DIAGNOSTIC 01/05/2016 ESOPHAGOGASTRODUODENOSCOPY (EGD), FLEXIBLE, TRANSORAL, DIAGNOSTIC performed by Maine Stone MD at [facility] EGD, FLEXIBLE, DIAGNOSTIC 03/11/2022 Multiple small non-bleeding fundic gland polyps / [facility] EGD, FLEXIBLE, DIAGNOSTIC 12/09/2022 mild-mod inflammation / [facility] LAPAROSCOPY TOTAL HYSTX, UTERUS 250GM OR LESS TUBE/OVARY N/A 02/22/2020 ROBOTIC LAPAROSCOPIC HYSTERECTOMY REMOVAL TUBES AND OVARIES FOR UTERUS 250GM OR LESS performed by Florentin Perez MD at [facility] LAPAROSCOPY; CHOLECYSTECTOMY N/A 06/06/2020 LIGATE/CUT OVIDUCT(S) MAMMOGRAM BREAST NEEDLE BIOPSY CORE LEFT Left 09/19/2015 benign NECK SPINE FUSION (CERV, BELOW C2) 1993 1999,2011 PATIENT EDU, LUMBAR LAMINECTOMY 2001 1996 too [place] TONSILLECTOMY PRIMARY/SECONDARY LESS THAN AGE 12 Bilateral REPAIR RUPTURED ROTATOR CUFF, ACUTE Left 08/08/2015 SINUS SURGERY PROCEDURE NEC 1994 TRANSCATH REPAIR MITRAL VALVE, INITIAL Bilateral 03/06/2023 TRANSCATHETER MITRAL VALVE REPAIR performed by Wilbur Rivera MD at [facility] Family History Problem Relation Age of Onset [...] Types: Cigarettes Quit date: 12/29/1978 Years since quittin.2 Passive exposure: Past Smokeless tobacco: Never Vaping [...] on file Housing Stability: Not on file COMPLETE REVIEW OF SYSTEMS: CONSTITUTIONAL: Denies fever/chills.. EYES: Denies amaurosis fugax. EAR, NOSE, THROAT AND MOUTH: Decreased hearing. CARDIOVASCULAR: Occasional chest discomfort, reports loop recorder, reports afib. RESPIRATORY: Denies shortness of breath. GASTROINTESTINAL: Denies bright red blood per rectum. GENITOURINARY: Denies hematuria. MUSKULOSKELETAL: Reports chronic low back pain, reports chronic neck pain. SKIN: Denies ulcers. NEUROLOGICAL: Denies TIA, denies CVA. PSYCHIATRIC: No report of psych admission. ENDOCRINOLOGIC: Reports DM. HEMATOLOGIC: Denies DVT. GENERAL MULTI-SYSTEM PHYSICAL EXAM: VITAL SIGNS: BP 112/58 (BP Site: Left Arm, BP Position: Sitting, BP Cuff Size: Regular) | Pulse 81 GENERAL MULTI-SYSTEM PHYSICAL EXAM: GENERAL: Normal grooming habits, no acute distress and appears stated age. NECK: No masses. RESPIRATORY: Respiratory effort normal and breath sounds CTA. CARDIOVASCULAR: RRR, no heart murmurs and no edema. GASTROINTESTINAL: no tenderness, protuberant and abdominal aorta not palpable. LYMPHATIC: cervical lymph nodes unremarkable. SKIN: no ulcers, no rash, no induration and no dependent rubor. PSYCHIATRIC: orientation to time, place and person normal and recent and remote memory normal. EYES: sclerae normal. NEUROLOGIC: Motor function grossly intact PULSE SCALE: Carotid Right:----Bruit: No Left:----Bruit: No Radial Right: 2 Left: 2 Femoral Right: 2 Left: 3 Popliteal Right: 0 Left: 2 Dorsalis Pedis Right: 0 Left: 2 Posterior Tibial Right: 0 Left: 0 PULSE SCALE: 4=Aneurysmal; 3=Normal; 2=Diminished; 1=Barely Palpable; 0=Absent DIAGNOSTIC STUDIES: 03/19/2013 PERRY .54/1.2. Toe pressures 34/68. The above diagnostic images were directly visualized and independently interpreted by me on 04/02/2023 with results as above 07/31/2022 CTA Abd/Pelvis w/ runoff: No AAA, diffuse occlusive disease of mid RSFA w/ near or complete distal occlusion, diffuse occlusive disease of 3 vessel run off. Diffuse occlusive diease of LSFA w/ severe distal stenosis, also with diffuse occlusive disease of 3 vessel run off 05/17/22 PERRY .40/0.92 03/20/22 CT Chest: No AAA infrarenal but views stopped prior to abd aortic bifurication 03/14/21 PERRY .61/1 LABS: Lab Results Component Value Date/Time CREATININE - [facility] 2.0 (H) 03/14/2023 10:53 AM CREATININE - [facility] 1.5 (H) 03/07/2023 04:14 AM CREATININE - [facility] 1.5 (H) 03/06/2023 11:30 AM CREATININE - [facility] 1.3 (H) 06/13/2020 03:27 PM CREATININE - [facility] 1.3 (H) 02/18/2020 02:06 PM CREATININE - [facility] 1.3 (H) 01/28/2020 09:57 AM CREATININE VERONICA 183 06/14/2019 04:38 PM CREATININE, RANDOM URINE - [facility] 90 02/21/2023 12:33 PM CREATININE, RANDOM URINE - [facility] 74 05/01/2022 08:39 AM CREATININE, RANDOM URINE - [facility] 128 10/26/2021 02:39 PM CREATININE, RANDOM URINE - [facility] 161 09/21/2019 05:19 PM CREATININE, RANDOM URINE - [facility] 177 06/14/2019 04:36 PM CREATININE, RANDOM URINE - [facility] 199 04/29/2018 12:57 PM CREATININE-OUTSIDE LAB 1.27 (A) 08/07/2022 12:00 AM CREATININE-OUTSIDE LAB 1.37 (A) 01/04/2022 12:00 AM CREATININE-OUTSIDE LAB 1.06 11/28/2021 12:00 AM Lab Results Component Value Date/Time LDL CHOLESTEROL (CALCULATED) - [facility] 32 02/21/2023 12:31 PM LDL CHOLESTEROL (CALCULATED) - [facility] 102 06/13/2020 03:27 PM LDL CHOLESTEROL (DIRECT MEASURE) - [facility] 67 10/26/2021 02:36 PM LDL CHOLESTEROL (DIRECT MEASURE) - [facility] NOT APPLICABLE 06/13/2020 03:27 PM LDL CHOLESTEROL (DIRECT MEASURE) - [facility] 147 (H) 02/27/2016 11:47 AM Hemoglobin Results: Lab Results Component Value Date/Time HGB - [facility] 11.2 (L) 03/14/2023 10:53 AM HGB - [facility] 8.8 (L) 03/07/2023 04:14 AM HGB - [facility] 9.5 (L) 03/06/2023 11:30 AM HGB - [facility] 12.4 06/13/2020 03:27 PM HGB - [facility] 11.9 (L) 02/18/2020 02:06 PM HGB - [facility] 12.5 05/06/2019 04:08 PM Hemoglobin AIC Results: Lab Results Component Value Date/Time HEMOGLOBIN A1C - [facility] 6.5 (H) 02/21/2023 12:31 PM HEMOGLOBIN A1C - [facility] 6.2 (H) 08/27/2022 04:09 PM HEMOGLOBIN A1C - [facility] 5.8 (H) 04/03/2022 09:59 AM HEMOGLOBIN A1C - [facility] 6.4 (H) 06/13/2020 03:27 PM HEMOGLOBIN A1C - [facility] 6.5 (H) 01/28/2020 09:57 AM HEMOGLOBIN A1C - [facility] 6.6 (H) 01/03/2020 12:07 PM The above clinical lab tests were reviewed by me on 04/02/2023. IMPRESSIONS: RLE PAD without classic claudication or ischemic rest pain/ulcers. Limited ambulation with BLE multifactorial symptoms attributed to poor balance, LE neuropathy as well as lower back and knee pain. S/P TMVR 03/06/2023. HFpEF. PAF, off anticoagulation Duel Chamber Pacemaker. Pulm HTN HTN. Dyslipidemia. DM. CKD Chronic back pain, spinal stenosis RADHA GERD Hypothyroidism. Anemia. PLAN: The patient was counseled regarding the pathophysiology and natural history of peripheral vascular disease, as well as the interventional and noninterventional therapeutic options. 03/19/2023 PERRY demonstrating stable, moderate PAD. Recommend continue medial management and routine surveillance. Continue ASA 81 mg daily for platelet inhibition Continue Lipitor 20 mg daily for pleiotropic effects. Good foot care and footwear is a must. Recomend daily walking program as tolerated. F/U at [facility] in 1 year, or sooner prn. Will need PERRY to be completed at [facility] 1 week prior to clinic visit. Papa Duran CRNP Section of Vascular and [place]ovascular [place] [address] [phone] documented in this encounter Nursing Notes * AGATA Bailey - 04/02/2023 9:22 AM EDT Patient was instructed to not get up on the exam table/exam chair until directed and assisted by their provider; patient is to remain seated in the chair/ wheelchair/ exam table/ exam chair for fall prevention and safety reasons. Patient is aware to have assistance to step down off exam table/exam chair with personnel. Patient voiced full comprehension of instructions. Patient states no changes in meds. AGATA Bailey documented in this encounter Plan of Treatment Upcoming Encounters Date Type Specialty Care Team Description 04/07/2023 Office Visit Gastroenterology Janine Cunningham CRNP [address] [place] [address] 04/07/2023 Office Visit Cardiology Emelina Aden CRNP [address] [place] [address] 04/10/2023 Home Visit [facility] Mónica Angeles RN [address] [place] [address] 04/11/2023 Office Visit Hematology Oncology Nereyda Metz CRNP [address] [place] [address] 04/16/2023 Office Visit Cardiology Wilbur Rivera MD [address] [place] [address] 04/18/2023 Office Visit Family Medicine Florentin Calvo, DO [address] [place] [address] 04/23/2023 Office Visit Otolaryngology Blair Dupree, [address] [place] [address] 05/09/2023 Office Visit Nephrology Rosario Green MD [address] [place] [address] 05/14/2023 Cardiac Studies Cardiac Studies 05/22/2023 Office Visit Ophthalmology Wilbur Benavides, DO [address] [facility] [place], [place] [id number] 05/23/2023 Office Visit Family Medicine Florentin Calvo, DO [address] [place] [address] 06/17/2023 Office Visit Cardiology Stephen Hewitt, DO [address] [place] [address] 10/24/2023 Office Visit Gynecology Oncology Chris Peng PA-C [address] [facility] [place] [address] Scheduled Orders Name Type Priority Associated Diagnoses Orde r Schedule VASC ANKLE BRACHIAL INDICES WITHOUT PPG (PAD) Medical Imaging Routine PVD (peripheral vascular disease) (HCC) Expected: 04/02/2024 (Approximate), Expires: 05/03/2025 Health Maintenance Due Date Last Done Comments DIABETES-EYE EXAM 04/11/2023 04/11/2022, , 04/11/2022, Additional history exists Influenza Vaccine (FLU shot) (#1) 2023 05/15/2022, 05/22/2021, 04/19/2020, Additional history exists CKD PHOS USE SMARTSET 83496 05/01/2023 09/0 02/2022, 04/03/2022, 12/05/2020, Additional history exists HbA1c 08/23/2023 02/21/2023, 01/0 10/2022, 04/03/2022, Additional history exists TSH 09/24/2023 09/24/2022, 01/0 10/2022, 02/12/2022, Additional history exists DIABETES-FOOT EXAM 10/01/2023 10/01/2022, 0 10/26/2021, 12/05/2020, Additional history exists GFR 10/02/2023 04/01/2023, 02/23, 03/07/2023, Additional history exists Albumin/Creatinine Ratio 02/22/2024 023, 05/01/2022, 10/26/2021, Additional history exists CKD HGB USE SMARTSET 98012 04/01/202404/01, 03/14/2023, 03/14/2023, Additional history exists Depression [...] this encounter Medical Devices Implanted Type Area Credit Reference Clerk Device Identifier Shelf Expiration Date Model / Serial / Lot Cath Thermodilution 6fr - [id number] Implanted:Qty: 1 on 01/24/2023 by Wilbur Rivera MD at [facility] [employer] [id number] 10/15/2024 [id number] / / [id number] Mirtaclip G4 - [id number] Implanted:Qty: 1 on 03/10/2023 at [facility] 11/19/2023 [id number] / / [id number] documented as of this encounter Visit Diagnoses Diagnosis PVD (peripheral vascular disease) (HCC)- Primary Peripheral vascular disease, unspecified Type 2 diabetes mellitus with hemoglobin A1c goal of less than 7.0% (HCC) Paroxysmal atrial fibrillation (HCC) Atrial fibrillation Chronic diastolic CHF (congestive heart failure) (HCC) Chronic diastolic heart failure 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 claudication Spinal stenosis, lumbar region, without neurogenic claudication Acquired hypothyroidism Unspecified hypothyroidism Obstructive sleep apnea of adult Obstructive sleep apnea (adult) (pediatric) Iron deficiency anemia, unspecified iron deficiency anemia type Type 2 diabetes mellitus with polyneuropathy (HCC) Type II or unspecified type diabetes mellitus with neurological manifestations, not stated as uncontrolled Moderate persistent asthma without complication Unspecified asthma Pure hypercholesterolemia Chronic kidney disease, stage 3b (HCC) Cardiac pacemaker in situ S/P mitral valve clip implantation documented in this encounter Advance Directives Documents on File Type Date Recorded Patient Home Health Care Provider Expl anation Advance Directives and Living Will 11/29/2022 ADVANCE DIRECTIVE / LIVING WILL Power of Commercial Collections Driver 11/29/2022 POWER OF A TTORNEY Advance Directives and Living Will 10/24/2014 ADVANCE DIRECTIVE / LIVING WILL Power of Commercial Collections Driver 10/24/2014 POWER OF A TTORNEY Latest Code [...] Agen t (per Health Care Power of Commercial Collections Driver document) Care Teams Shipping And Receiving Specialist Relationship Specialty Start Date End Date Florentin Calvo, [address] [place] [address] PCP - General Internal Medicine 03/24/13 documented as of this encounter
--- OUTSIDE RECORDS SUMMARY | 2023-08-14 23:40 | External Medical Summary | Summary of Care ---
Author Name Unknown Organization [facility] Address [address] [place] [address] Phone [phone] Care Team Providers Care Drawing Operator Name Role Phone Florentin Calvo DO Primary Care Provider Reason for Visit * Reason Comments Follow Up 6 month follow up, a nemia, fatty liver, issues with urgency and frequency. - pt states that her stools are tarry and sticky Encounter Details Date Type Department Care Team Description 04/07/2023 Office Visit Gastroenterology, [facility] [address] [place] [address] Janine Cunningham CRNP [address] [facility] [place] [address] Dark stools*; Diarrhea, unspecified type Allergies Active Allergy Reactions Severity Noted Date Comments Azithromycin Other (Please comment) 12/04/2021 QTC prolongation at [facility] Celecoxib Hives,Rash High 03/24/2013 Other reaction(s): Rash/Hives/Itching. 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 No[place] can hear w/ hearing aid 03/07/2023 Are [...] of this encounter Progress Notes * JESS Duncan - 04/07/2023 10:30 AM EDT DATE OF SERVICE: 04/07/2023 REFERRING PHYSICIAN: Florentin Calvo DO CC: Follow up Office Visit 04/07/2023 : EGD/EUS was postponed - s/p mitral valve clip implantation in February 2023. Notes she feels much better since cardiology appt. No abd pain. No nausea, vomiting. Tolerating PO intake. No GERD. No dysphagia. Bowels moving okay. Suggests she between 2-4 stools. Starts with formedstool in the AM. Stool is dark. On iron. This is followed by looser stools. No BRB. Has been seeingdark brown/black stools since September. No lightheadedness, dizziness, CP, SOB. Is just on ASA now Latest Reference Range & Units 03/06/23 11:30 03/07/23 04:14 03/14/23 10:53 04/01/23 14:29 WBC 4.00 - 10.80 K/uL 10.94 (H) 10.52 7.73 9.08 HGB 12.0 - 15.3 g/dL 9.5 (L) 8.8 (L) 11.2 (L) 11.7 (L) HCT 36.0 - 45.2 % 29.9 (L) 28.2 (L) 36.8 36.3 (H): Data is abnormally high (L): Data is abnormally low Office Visit 10/07/2022: Had an isolated episode of rectal bleeding on Friday. Suggests she went to move her bowels Friday, stools was mixed with BRB, in toilet and toilet as well. Some clots. No bleeding since Friday nathan Office Visit 03/27/2022 :HD. Liver serology is negative, lfts remain elevated, egd/eus is next stepand is already scheduledbut cancelled due to admission.Anemia. S/P EGD/Colon. Negative. AC on hold per cardiology until completion of anemia workup. HGB stable 9.4.She has had some intermittent li ghtheadedness and dizziness, improves with rest. No abd pain. Tolerating PO well. No nausea, vomiting. Slight decrease in appetite. No GERD. No dysphagia - she suggests these improved. Stools slightly dark. Tend towards loser but now is formed. 1-2 times daily. No black or bloody stools. No fever, chills, CP, SOB. Office Visit 12/24/2021 :81 year old female with history of T2DM, HTN, asthma, afib, RADHA, endometrial CA others below referred for elevated LFTs at the request of Dr Calvo.Feeling well from GI standpoint. Denies abd pain. No nausea, vomiting. Tolerating PO well. Denies GERD, reflux, regurgitation. She does have intermittent dysphagia. This started 2 months ago. Solids and liquids. Sometimes pills. No coughing after PO intake. Moving bowels okay. Stool soft. No diarrhea or constipation. No black or bloody stools. Weight stable now. Lost 60 lbs last year, this was thought from medication changes. Was diagnosed with diabetes that year. No fever, chills, CP, SOB ABD US 2021:Hepatic steatosis.Right renal simple cysts.Cholecystectomy. No biliary obstruction or choledocholithiasis. Colonoscopy 2021:Preparation of the colon was fair. - No fresh or altered blood. - The examined portion of the ileum was normal. - Diverticulosis in the sigmoid colon. - Stool in the entire examined colon. - The distal rectum and anal verge are normal on retroflexion view. - No specimens collected. EGD 2021:No fresh or altered blood. - Normal esophagus. - Multiple small non-bleeding fundic gland polyps. - Normal examined duodenum. - No specimens collected EGD 2014:Normal esophagus. - 4 cm hiatus hernia (no Ivan's erosions seen). - Normal gastric fundus, gastric body, incisura and antrum. - Normal duodenal bulb and 2nd part of the duodenum. Biopsied. Colonoscopy 2020:Hemorrhoids found on perianal exam. - Diverticulosis in the sigmoid colon. - Two 3 to 5 mm polyps in the transverse colon and in the ascending colon, removed with a cold snare. Resected and retrieved. - Small AVMs proximal colon. 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 Pleural effusion Pulmonary arterial hypertension ([facility]) Pure hypercholesterolemia 07/02/2021 PVD (peripheral vascular disease) ([facility]) 05/15/2022 Retinopathy Secondary hyperparathyroidism, renal ([facility]) 12/17/2018 Severe mitral valve regurgitation 10/30/2022 Severe tricuspid regurgitation 11/18/2022 Spinal stenosis 07/2002 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 claudication 03/24/2013 Vertigo 03/24/2013 Family History Problem Relation Age of Onset Neurological Disorder Mother parkinson Eye Problems Mother glaucoma Diabetes Father 30 1967 Cancer Brother brain, lung Eye Problems None denies fm: Blindness, AMD, RD Stomach cancer Grandmother (Maternal) Past Surgical History: Procedure Laterality Date COLONOSCOPY, DIAGNOSTIC (RECTUM) 10/12/2014 inflammatory tissue on bx, diverticulosis/[facility] COLONOSCOPY, DIAGNOSTIC (RECTUM) 01/05/2016 diverticulosis, multiple non-bleeding colonic angioectasias COLONOSCOPY, DIAGNOSTIC (RECTUM) 04/15/2016 angiodysplastic lesion, diverticulosis/COLONOSCOPY FLEXIBLE PROXIMAL DIAGNOSTIC performed by Izzy Stone MD at ENDOSCOPY [facility] COLONOSCOPY, DIAGNOSTIC (RECTUM) 11/10/2020 Hemorrhoids, multi polyps, diverticulosis in sigmoid colon/ biopsy show adenomatous polyp/ COLONOSCOPY FLEXIBLE PROXIMAL DIAGNOSTIC performed by Maine Stone MD at ENDOSCOPY [facility] COLONOSCOPY, DIAGNOSTIC (RECTUM) 03/11/2022 poor prep / [facility] CORONARY ANGIOGRAPHY W/RIGHT+LEFT CATH Right 01/24/2023 CORONARY ANGIOGRAPHY W/RIGHT+LEFT CATH performed [place] Wilbur Rivera [place] [facility] [place] 06[place]2012 EGD, FLEXIBLE, DIAGNOSTIC 10/12/2014 normal bx, HH/[facility] EGD, FLEXIBLE, DIAGNOSTIC 01/05/2016 ESOPHAGOGASTRODUODENOSCOPY (EGD), FLEXIBLE, TRANSORAL, DIAGNOSTIC performed by Manie Stone MD at [facility]COPY [facility] EGD, FLEXIBLE, DIAGNOSTIC 03/11/2022 Multiple small non-bleeding fundic gland polyps / [facility] EGD, FLEXIBLE, DIAGNOSTIC 12/09/2022 mild-mod inflammation / [facility] LAPAROSCOPY TOTAL HYSTX, UTERUS 250GM OR LESS TUBE/OVARY N/A 02/22/2020 ROBOTIC LAPAROSCOPIC HYSTERECTOMY REMOVAL TUBES AND OVARIES FOR UTERUS 250GM OR LESS performed by Florentin Perez MD [place] [facility] [place]; CHOLECYSTECTOMY N/A 06/06/2020 [...] by Wilbur Rivera [place] [facility] [place] Social History Tobacco Use Smoking status: Former [...] Azithromycin Other (Please comment) QTC prolongation at [facility] Nickel Swelling Other reaction(s): Unknown Current Outpatient Medications Medication Sig Dispense Refill [employer] w/Device Kit Use up to 1 times [...] 1 Puff before bedtime. 60 Each 2 [employer] In Vitro Strip (Glucose Blood) Test blood [...] AT BEDTIME 100 Tablet3 OneTouch Delica Plus [id number] USE 2 TIMES A DAY DIRECTED 200 [...] TAKE ONE TABLET BY MOUTH EVERY DAY [id number] Tablet 3 Ipratropium Warren 0.03 % Nasal Solution (Atrovent) Administer 2 [...] JESS Vaca 2.5 mg at 10/31/22 1441 REVIEW OF SYSTEMS: All other findings negative except as noted in HPI. EXAM: BP 112/56 | Pulse 89 | Temp 36.5 C (97.7 F) | Wt 71.2 kg (156 lb 14.4 oz) | SpO2 94% | BMI 26.11 kg/m | BSA 1.81 m GENERAL: Well developed and well nourished in no acute distress. SKIN: No rashes, ulcers, jaundice or spider angiomata. HEENT: Normocephalic, sclera clear, pharynx normal. NECK: Supple, no lymphadenopathy, no masses or thyroid enlargement. LUNGS: Clear to auscultation bilaterally, no respiratory distress or accessory muscles used. HEART: Regular rate & rhythm, no murmurs and no gallops. ABDOMEN: Normal bowel sounds, soft and nontender, no masses or hepatosplenomegaly. EXTREMITIES: No palmar erythema, no ankle edema, no skin discoloration, no clubbing, no cyanosis. NEURO: No lateralizing findings. Sensory/Motor grossly normal. DIAGNOSTIC TEST: Hgb Hct Clostridium difficile, pcr Gastrointestinal pathogen panel, stool Regionalparasite antigen screen ASSESSMENT AND PLAN: 82 year old female with elevated LFTs,new dysphagia, solids and liquids. ABDUS reviewed, fatty liver s/p CCY. She had an unexplained 60 lb weight loss last year, ?medication and has now since maintained her weight. Given her symptoms would recommend EGD/EUS HD, anemia s/p EGD/Colon, negative. VCE negative. EGD/EUS schediled in the near future. Isolated episodes of rectal bleeding Friday will check CBC, she does not wish to have repeat colonoscopy as this time. - Labs - Submit stools - ArrangeEGD/EUS - Colace 100 mg twice daily - Miralax 1/2-1 capful - Continue Lansoprazole - Defer AC management to cardiology, no overt GI contraindication - ED for emergencies - Please call with any questions or concerns RETURN TO CLINIC: 6 months I spent a total of 30 minutes on the date of service in review of patient's record, and previously obtained information in person and appropriate medical visit, discussion and education of plan, withpatient and/or caregiver, placing orders for tests/referral/procedures as medically necessary and documentation of pertinent clinical information in patient's medical records for their visit today. JESS Murdock 04/07/2023 10:46 AM documented in this encounter Nursing Notes * Ronit Platt LPN - 04/07/2023 10:24 AM EDT Patient identified by name and date of . Chief Complaint Patient presents with Follow Up 6 month follow up, anemia, fatty liver, issues with urgency and frequency. - pt states that her stools are tarry and sticky Pt stating that she has dark and tarry sticky stools still at times, is on iron daily. Denies SOB, dizziness, chills, lightheadedness, and headaches. documented in this encounter Plan of Treatment Upcoming Encounters Date Type Specialty Care Team Description 3 Office Visit Cardiology Emelina Aden CRNP [address] [place] [address] 3 Home Visit [facility] Mónica Angeles RN [address] [place] [address] 3 Laboratory [facility], [address]en[address] [place] [address] 3 Office Visit Hematology Oncology Nereyda Metz CRNP [address] [place] [address] 3 Office Visit Cardiology Wilbur Rivera MD [address] [place] [address] 3 Office Visit Family Medicine Florentin Calvo, DO [address] [place] [address] 3 Office Visit Otolaryngology Blair Dupree, DO [address] [place] [address] 3 Hospital Encounter Endoscopy Shane Marina MD [address] [place] [address] 3 Surgery Endoscopy Shane Marina MD [address] [place] [address] ESOPHAGOGASTRODUODENOSCOPY (EGD), FLEXIBLE, TRANSORAL, ENDOSCOPIC ULTRASOUND 3 Office Visit Nephrology Rosario Green MD [address] [place] [address] 3 Cardiac Studies Cardiac Studies 3 Office Visit Ophthalmology Wilbur Benavides, DO [address] [place] [address] 3 Office Visit Family Medicine Florentin Calvo, DO [address] [place] [address] 3 Office Visit Cardiology Stephen Hewitt, DO [address] [place] [address] 4 Office Visit Gynecology Oncology Chris Peng PA-C [address], [place] [id number] Scheduled Orders Name Type Priority Associated Diagnoses Orde r Schedule HGB Lab Routine Dark stools Expected: 04/07/2023, Expires: 04/07/2024 HCT Lab Routine Dark stools Expected: 04/07/2023, Expires: 04/07/2024 CLOSTRIDIUM DIFFICILE, PCR Lab Routine Dark stools Diarrhea, unspecified type Expected: 04/07/2023, Expires: 04/07/2024 GASTROINTESTINAL PATHOGEN PANEL, STOOL Lab Routine Dark stools Diarrhea, unspecified type Expected: 04/07/2023, Expires: 04/07/2024 REGIONAL PARASITE ANTIGEN SCREEN Lab Routine Dark stools Diarrhea, unspecified type Expected: 04/07/2023, Expires: 04/07/2024 Scheduled Procedures Name Priority Associated Diagnoses Date/Ti me ESOPHAGOGASTRODUODENOSCOPY ( EGD), FLEXIBLE, TRANSORAL, ENDOSCOPIC ULTRASOUND Elevated liver function tests 04/30/2023 10:15 AM EDT Health Maintenance Due Date Last Done Comments DIABETES-EYE EXAM 04/11/2023 04/11/2022, , 04/11/2022, Additional history exists Influenza Vaccine (FLU shot) (#1) 2023 05/15/2022, 05/22/2021, 04/19/2020, Additional history exists CKD PHOS USE SMARTSET 71232 05/01/2023 09/0 02/2022, 04/03/2022, 12/05/2020, Additional history exists HbA1c 08/23/2023 02/21/2023, 01/0 10/2022, 04/03/2022, Additional history exists TSH 09/24/2023 09/24/2022, 01/0 10/2022, 02/12/2022, Additional history exists DIABETES-FOOT EXAM 10/01/2023 10/01/2022, 0 10/26/2021, 12/05/2020, Additional history exists GFR 10/02/2023 04/01/2023, 02/23, 03/07/2023, Additional history exists Albumin/Creatinine Ratio 02/22/2024 023, 05/01/2022, 10/26/2021, Additional history exists CKD HGB USE SMARTSET 06181 04/01/202404/01, 03/14/2023, 03/14/2023, Additional history exists Depression [...] this encounter Medical Devices Implanted Type Area Blood Bank Calendar Control Clerk Device Identifier Shelf Expiration Date Model / Serial / Lot Cath Thermodilution 6fr - [id number] Implanted:Qty: 1 on 01/24/2023 by Wilbur Rivera [place] [facility] [place] [employer] [id number] 10/15/2024 [id number] / / [id number] [employer] G4 - [id number] Implanted:Qty: 1 on 03/10/2023 at [facility] [place] [employer] 11/19/2023 [id number] / / [id number] documented as of this encounter Visit Diagnoses Diagnosis Dark stools- Primary Nonspecific abnormal finding in stool contents Diarrhea, unspecified type Elevated liver function tests Other abnormal blood chemistry documented in this encounter Advance Directives Documents on File Type Date Recorded 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 Expl anation Advance Directives and Living Will 11/29/2022 ADVANCE DIRECTIVE / LIVING WILL Power of Clerk General Office 11/29/2022 POWER OF A TTORNEY Advance Directives and Living Will 10/24/2014 ADVANCE DIRECTIVE / LIVING WILL Power of Clerk General Office 10/24/2014 POWER OF A TTORNEY Latest Code [...] on File Name Relationship Healthcare Agent [facility], [facility]hi p Communication [facility] Adult Child Health Care Agen t (per Health Care Power of Clerk General Office document) Care Teams Drawing Operator Relationship Specialty Start Date End Date Florentin Calvo, [address] [place] [address] PCP - General Internal Medicine 03/24/13 documented as of this encounter
--- OUTSIDE RECORDS SUMMARY | 2023-08-14 23:40 | External Medical Summary | Summary of Care ---
Author Name Unknown Organization [facility] Address [address] [place] [address] Phone [phone] Care Team Providers Care Precinct Commanding Officer Name Role Phone Florentin Calvo DO Primary Care Provider [phone] Reason for Visit * Reason Comments Follow Up Encounter Details Date Type Department Care Team Description 04/01/2023 Office Visit Family Practice [address] [place] [address] [address] [place] [address] Florentin Calvo DO [address] [place] [address] Type 2 diabetes mellitus with stage 3b chronic kidney disease, without long-term current use of insulin ([facility])*; Chronic diastolic CHF (congestive heart failure) (HCC); Pulmonary hypertension (HCC); Secondary hyperparathyroidism, renal (HCC); Paroxysmal atrial fibrillation (HCC); Acquired hypothyroidism; Obstructive sleep apnea of adult; Displacement of cervical intervertebral disc without myelopathy; Tremor; Iron deficiency anemia, unspecified iron deficiency anemia type; Angiodysplasia of colon with hemorrhage; Type 2 diabetes mellitus with polyneuropathy ([facility]); Current moderate episode of major depressive disorder without prior episode (HCC); Moderate persistent asthma without complication; Gastro-esophageal reflux disease without esophagitis; Pure hypercholesterolemia; Cardiac pacemaker in situ; History of endometrial cancer; S/P mitral valve clip implantation; Atherosclerosis of pauma coronary artery of pauma heart without angina pectoris; Chronic rhinitis Allergies Active Allergy Reactions Severity Noted Date Comments Azithromycin Other (Please comment) 12/04/2021 QTC prolongation at [facility] Celecoxib Hives,Rash High 03/24/2013 Other [...] as of this encounter (statuses as of 04/08/2023) Medications Medication Sig Dispensed Refills Start Date End Date Status OneTouch Ifeoma w/Device KitIndications:Typ e 2 diabetes mellitus with hemoglobin A1c goal of less than 7.0% ([facility]) Use up to 1 times a [...] 3 08/05/2022 3 Active OneTouch Delica Plus [id number] USE 2 TIMES A DAY DIRECTED 200 [...] (Lipitor)Indicatio ns:PVD (peripheral vascular disease) ([facility]),Type 2 diabetes mellitus with stage 3a chronic kidney disease and hypertension ([facility]) TAKE ONE TABLET BY MOUTH EVERY DAY DIRECTED 100 Tablet 3 03/31/2023 Active Ipratropium Munith 0.03 % Nasal Solution (Atrovent)Indicati ons:Chronic rhinitis Administer 2 Sprays into nostril in the morning and 2 Sprays before bedtime. 90 mL 3 04/01/2023 Active Ipratropium Munith 0.03 % Nasal Solution Administer 2 Sprays into nostril in the morning and 2 Sprays before bedtime. 0 3 Discontinued (Refill) Sotalol HCl 80 MG Oral Tablet (Betapace)Indicati ons:Chronic atrial fibrillation (HCC) TAKE ONE-HALF TABLET BY MOUTH EVERY DAY IN THE MORNING AND 1/2 TABLET BEFORE BEDTIME. 90 Tablet 3 04/03/2022 3 Hospital, Clinic, or Other Facility Administered [...] as of this encounter (statuses as of 04/08/2023) Active Problems Problem Noted Date S/P mitral valve clip implantation 03/06 Atherosclerosis of pauma coronary arter y without angina pectoris 02/13/2023 Last Assessment & Plan: Continue statin, sotalol. ASA History of TIA (transient ischemic attac k) 11/29/2022 Last Assessment & Plan: -Recent admission to [facility], presented with numbness of tongue [...] Obstructive sleep apnea of adult 015 Overview: LEAD SYSTEMS ARCHITECT Last Assessment & Plan: Now just using [...] as of this encounter (statuses as of 04/08/2023) Resolved Problems Problem Noted Date Resolved Date [...] as of this encounter (statuses as of 04/08/2023) Immunizations Name Administration Dates Next Due COVID-19 [...] Sign Reading Time Taken Comments Blood Pressure 108/58 04/01/2023 11:16 AM EDT Pulse 60 04/01/2023 11:16 AM EDT Temperature 35.8 C (96.5 F) 04/01/2023 11:16 AM E DT Respiratory Rate 13 04/01/2023 11:16 AM EDT Oxygen Saturation 95% 04/01/2023 11:16 AM EDT Inhaled Oxygen Concentration - - Weight 70.4 kg (155 lb 4.8 oz) 04/01/2023 11:16 AM EDT Height 165.1 cm (5' 5") 04/01/2023 11:16 AM EDT Body Mass Index 25.84 04/01/2023 11:16 AM EDT documented in this encounter Functional Status Functional Status Response Date of Assess ment Are you deaf or do you have serious difficulty hearing? No-NAPAIMUTE can hear w/ hearing aid 03/07/2023 Are [...] of this encounter Progress Notes * Florentin Calvo DO - 04/01/2023 12:58 PM EDT SUBJECTIVE: Inga Barakat is a [...] hearing loss that is seen for followup. Patient was brought to the visit by her daughter. She is using a walker at all times and is following with Physical therapy. Shortness of breath resolved post Mitral Valve Clip. No chest pain is p resent. Appetite is fair and weight is stable. The patient wears nocturnal oxygen and cannot tolerate BiPAP Patient Active Problem List Diagnosis Code Type 2 diabetes mellitus with hemoglobin A1c goal of less than 7.0% ([facility]) E11.9 Vertigo R42 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 claudication M48.061 Hypothyroidism E03.9 Displacement of cervical intervertebral disc without myelopathy M50.20 Meniere's disease H81.09 Paroxysmal atrial fibrillation ([facility]) I48.0 Obstructive sleep apnea of adult G47.33 Tremor R25.1 Iron deficiency anemia D50.9 Angiodysplasia of colon with hemorrhage K55.21 Acquired renal cyst N28.1 Controlled substance agreement signed Z79.899 Type 2 diabetes mellitus with polyneuropathy ([facility]) E11.42 Secondary hyperparathyroidism, renal ([facility]) N25.81 Pulmonary hypertension ([facility]) I27.20 Current moderate episode of major depressive disorder without prior episode ([facility]) F32.1 Moderate persistent asthma without complication J45.40 Gastro-esophageal reflux disease without esophagitis K21.9 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 (HCC) E11.319 Pure hypercholesterolemia E78.00 Aneurysm of left carotid artery ([facility]) I72.0 Aortic atherosclerosis ([facility]) I70.0 Chronic kidney disease, stage 3b (HCC) N18.32 PVD (peripheral vascular disease) ([facility]) I73.9 Chronic diastolic CHF (congestive heart failure) ([facility]) I50.32 Type 2 diabetes mellitus with stage 3b chronic kidney disease, without long- term current use ofinsulin (HCC) E11.22, N18.32 Cardiac pacemaker in situ Z95.0 History of endometrial cancer Z85.42 Normocytic anemia D64.9 Primary osteoarthritis of right knee M17.11 Severe tricuspid regurgitation I07.1 History of TIA (transient ischemic attack) Z86.73 Atherosclerosis of pauma coronary artery without angina pectoris I25.10 S/P mitral valve clip implantation Z98.890, Z95.818 Current Outpatient Medications Medication Sig Dispense Refill Aspirin 81 MG Oral Tablet Delayed Release Take 1 Tablet by mouth daily. Vitamin D3 50 MCG (2000 UT) Oral [...] TABLET BY MOUTH AT BEDTIME 100 Tablet3 Sotalol HCl 80 MG Oral Tablet (Betapace) [...] TAKE ONE TABLET BY MOUTH EVERY DAY [id number] Tablet 3 Ipratropium Munith 0.03 % Nasal Solution (Atrovent) Administer 2 Sprays into nostril in the morning and 2 Sprays before bedtime. 90 mL 3 OneTouch Verio w/Device Kit Use up to 1 times a day. E11.9 1 Kit 0 Acetaminophen 325 MG Oral Tablet (Tylenol) Take 2 Tablets by mouth every 6 hours as needed. 100Tablet 0 OneTouch Verio In Vitro Strip (Glucose Blood) Test blood sugars up to 2 times a day E11.9 200 Strip 3 OneTouch Delica Plus [id number] USE 2 TIMES A DAY DIRECTED 200 [...] JESS Vaca 2.5 mg at 10/31/22 1441 The patient's [...] wrist Obstructive sleep apnea of adult 09/09/2014 LEAD SYSTEMS ARCHITECT Pleural effusion Pulmonary arterial hypertension (HCC) Pure hypercholesterolemia 07/02/2021 PVD (peripheral vascular disease) ([facility]) 05/15/2022 Retinopathy Secondary hyperparathyroidism, renal ([facility]) 12/17/2018 Severe mitral valve regurgitation 10/30/2022 Severe tricuspid regurgitation 11/18/2022 Spinal stenosis 07/2002 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 claudication 03/24/2013 Vertigo 03/24/2013 Past Surgical History: Procedure Laterality Date COLONOSCOPY, DIAGNOSTIC (RECTUM) 10/12/2014 inflammatory tissue on bx, diverticulosis/[facility] COLONOSCOPY, DIAGNOSTIC (RECTUM) 01/05/2016 diverticulosis, multiple non-bleeding colonic angioectasias COLONOSCOPY, DIAGNOSTIC (RECTUM) 04/15/2016 angiodysplastic lesion, diverticulosis/COLONOSCOPY FLEXIBLE PROXIMAL DIAGNOSTIC performed by Izzy Stone MD at ENDOSCOPY [facility] COLONOSCOPY, DIAGNOSTIC (RECTUM) 11/10/2020 Hemorrhoids, multi polyps, diverticulosis in sigmoid colon/ biopsy show adenomatous polyp/ COLONOSCOPY FLEXIBLE PROXIMAL DIAGNOSTIC performed by Maine Stone MD at ENDOSCOPY [facility] COLONOSCOPY, DIAGNOSTIC (RECTUM) 03/11/2022 poor prep / [facility] CORONARY ANGIOGRAPHY W/RIGHT+LEFT CATH Right 01/24/2023 CORONARY ANGIOGRAPHY W/RIGHT+LEFT CATH performed by Wilbur Rivera MD at [facility] CYSTOSCOPY 06/2012 EGD, FLEXIBLE, DIAGNOSTIC 10/12/2014 normal bx, HH/[facility] EGD, FLEXIBLE, DIAGNOSTIC 01/05/2016 ESOPHAGOGASTRODUODENOSCOPY (EGD), FLEXIBLE, TRANSORAL, DIAGNOSTIC performed by Maine Stone MD at ENDOSCOPY [facility] EGD, FLEXIBLE, DIAGNOSTIC 03/11/2022 Multiple small non-bleeding fundic gland polyps / [facility] EGD, FLEXIBLE, DIAGNOSTIC 12/09/2022 mild-mod inflammation / [facility] LAPAROSCOPY TOTAL HYSTX, UTERUS 250GM OR LESS TUBE/OVARY N/A 02/22/2020 ROBOTIC LAPAROSCOPIC HYSTERECTOMY REMOVAL TUBES AND OVARIES FOR UTERUS 250GM OR LESS performed by Florentin Perez MD at OR [facility] LAPAROSCOPY; CHOLECYSTECTOMY N/A 06/06/2020 LIGATE/CUT OVIDUCT(S) MAMMOGRAM BREAST NEEDLE BIOPSY CORE LEFT Left 09/19/2015 benign NECK SPINE FUSION (CERV, BELOW C2) 1993 1999,2011 PATIENT EDU, LUMBAR LAMINECTOMY 2001 1996 too AL TONSILLECTOMY PRIMARY/SECONDARY LESS THAN AGE 12 Bilateral REPAIR RUPTURED ROTATOR CUFF, ACUTE Left 08/08/2015 SINUS SURGERY PROCEDURE NEC 1994 TRANSCATH REPAIR MITRAL VALVE, INITIAL Bilateral 03/06/2023 TRANSCATHETER MITRAL VALVE REPAIR performed by Wilbur Rivera MD at [facility] Review of patient's allergies indicates: Allergen Reactions [...] Azithromycin Other (Please comment) QTC prolongation at [facility] Nickel Swelling Other reaction(s): Unknown [...] Genitourinary: Negative for dysuria and hematuria. Musculoskeletal: Positive for back pain and gait problem. Neurological: Negative for dizziness, syncope and headaches. Psychiatric/Behavioral: Negative for confusion, decreased concentration and sleep disturbance. OBJECTIVE: BP 108/58 | Pulse 60 | Temp 35.8 C (96.5 F) (Tympanic) | Resp 13 | Ht 1.651 m (5' 5") | Wt 70.4kg (155 lb 4.8 oz) | SpO2 95% | BMI 25.84 kg/m | BSA 1.8 m Physical Exam Vitals and nursing note reviewed. Constitutional: General: She is not in acute distress. Appearance: Normal appearance. She is not toxic-appearing. HENT: Head: Normocephalic and atraumatic. Cardiovascular: Rate and Rhythm: Normal rate and regular rhythm. Heart sounds: Murmur heard. Pulmonary: Effort: Pulmonary effort is normal. Breath [...] and time. Mental status is at baseline. Gait: Gait abnormal. Psychiatric: Mood and Affect: Mood normal. Behavior: Behavior normal. Thought Content: Thought content normal. Results for orders placed or performed in visit on 03/14/23 COMPREHENSIVE METABOLIC PANEL Result Value Ref Range BUN 47 (H) 6 - 20 mg/dL Creatinine 2.0 (H) 0.5 - 1.0 mg/dL Estimated Glomerular Filtration Rate 25 (L) >=60 mL/min Sodium 139 135 - 146 mmol/L Potassium 3.8 3.5 - 5.1 mmol/L Chloride 98 98 - 107 mmol/L CO2 26 22 - 32 mmol/L Anion Gap 15 7 - 15 mmol/L Glucose 101 70 - 120 mg/dL Albumin 4.4 3.8 - 5.0 g/dL AST 62 (H) 10 - 35 U/L Alkaline Phosphatase 178 (H) 35 - 130 U/L Bilirubin, Total 0.4 <=1.2 mg/dL Calcium 9.7 8.4 - 10.2 mg/dL Protein 6.6 6.0 - 8.3 g/dL ALT 31 10 - 35 U/L IRON SCREEN, INCLUDING TIBC Result Value Ref Range Iron 56 33 - 151 ug/dL Iron Binding Capacity 321 250 - 425 ug/dL Transferrin Saturation Percent 17 15 - 55 % FERRITIN Result Value Ref Range Ferritin 441 (H) 13 - 150 ng/mL CBC Result Value Ref Range WBC 7.73 4.00 - 10.80 K/uL RBC 3.86 3.85 - 5.15 M/uL HGB 11.2 (L) 12.0 - 15.3 g/dL HCT 36.8 36.0 - 45.2 % MCV 95.3 81.5 - 97.5 fL MCH 29.0 27.0 - 34.0 pg MCHC 30.4 32.0 - 36.0 g/dL RDW 16.5 11.5 - 15.5 % PLT 224 140 - 400 K/uL MPV 10.5 6.6 - 11.1 fL nRBCs 0 <=0 /100 WBCs DIFFERENTIAL, AUTOMATED Result Value Ref Range WBC 7.73 4.00 - 10.80 K/uL Neutrophils % 63.6 40.0 - 75.0 % Lymphocytes % 12.7 (L) 18.0 - 42.0 % Monocytes % 10.1 1.0 - 11.0 % Eosinophils % 11.9 (H) 0.0 - 6.0 % Basophils % 1.3 0.0 - 2.0 % Immature Granulocytes % 0.4 0.0 - 2.0 % Absolute Neutrophils 4.92 1.80 - 7.70 K/uL Absolute Lymphocytes 0.98 (L) 1.00 - 4.80 K/ul Absolute Monocytes 0.78 0.00 - 1.10 K/uL Absolute Eosinophils 0.92 (H) 0.00 - 0.70 K/uL Absolute Basophils 0.10 0.00 - 0.20 K/uL Absolute Immature Granulocytes 0.03 0.00 - 0.20 K/uL *Note: Due to a large number of results and/or encounters for the requested time period, some results have not been displayed. A complete set of results can be found in Results Review. PLAN AND ASSESSMENT: Type 2 diabetes mellitus with stage 3b chronic kidney disease, without long-term current use of insulin ([facility]) (Primary) - TELEMEDICINE DIABETIC EYE - BASIC METABOLIC PANEL; Future; Expected date: 04/01/2023 Diet controlled Chronic diastolic CHF (congestive heart failure) (HCC) - BASIC METABOLIC PANEL; Future; Expected date: 04/01/2023 Continue Torsemide Pulmonary hypertension (HCC) Secondary hyperparathyroidism, renal (HCC) Paroxysmal atrial fibrillation (HCC) Continue Sotalol No anticoagulation due to GI bleeding Acquired hypothyroidism Continue Levothyroxine Obstructive sleep apnea of adult Displacement of cervical intervertebral disc without myelopathy Tremor Iron deficiency anemia, unspecified iron deficiency anemia type Continue Ferrous Sulfate 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 (HCC) Current moderate episode of major depressive disorder without prior episode (HCC) Continue Sertraline Moderate persistent asthma without complication Continue Advair, Levalbuterol, and Montelukast Gastro-esophageal reflux disease without esophagitis Continue Pantoprazole Pure hypercholesterolemia Continue Atorvastatin Cardiac pacemaker in situ History of endometrial cancer S/P mitral valve clip implantation 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 Follow Up: Return in about 2 weeks (around 04/15/2023), or if symptoms worsen or fail to improve. Florentin Calvo DO 12:59 PM 04/01/2023 documented in this encounter Nursing Notes * Hilda Awad LPN - 04/01/2023 11:15 AM EDT Patient presents for follow up, voices no complaints. documented in this encounter Miscellaneous Notes * Addendum Note - RADHA Thompson - 04/08/2023 10:01 AM EDTAddended by: TAMARA COOMBS on: 04/08/2023 10:01 AM Modules accepted: Orders documented in this encounter Plan of Treatment Upcoming Encounters Date Type Specialty Care Team Description 3 [facility] Visit [facility] Mónica Angeles RN [address] [address] 3 Laboratory [facility] [address] [facility] [address] 3 Office Visit Hematology Oncology Nereyda Metz CRNP [address] [place] [address] 3 Office Visit Cardiology Wilbur Rivera MD [address] [place] [address] 3 Office Visit Family Medicine Florentin Calvo, DO [address] [place] [address] 3 Office Visit Otolaryngology Blair Dupree, DO [address] [place] [address] 3 Hospital Encounter Endoscopy Jana Vieira, DO [address] [place] [address] 3 Surgery Endoscopy Jana Vieira, DO [address] [place] [address] ESOPHAGOGASTRODUODENOSCOPY (EGD), FLEXIBLE, TRANSORAL, ENDOSCOPIC ULTRASOUND 3 Office Visit Nephrology Rosario Green MD [address] [facility] [address] 3 Cardiac Studies Cardiac Studies 3 Office Visit Ophthalmology Wilbur Benavides, DO [address] [facility] [place], [place] [id number] 3 Office Visit Family Medicine Florentin Calvo, DO [address] [place] [address] 3 Office Visit Cardiology Stephen Hewitt, DO [address] [place] [address] 4 Office Visit Gynecology Oncology Chris Peng PA-C [address] [facility] [address] Scheduled Procedures Name Priority Associated Diagnoses Date/Ti me ESOPHAGOGASTRODUODENOSCOPY ( EGD), FLEXIBLE, TRANSORAL, ENDOSCOPIC ULTRASOUND Elevated liver function tests 04/30/2023 10:15 AM EDT Health Maintenance Due Date Last Done Comments DIABETES-EYE EXAM 04/11/2023 04/11/2022, , 04/11/2022, Additional history exists Influenza Vaccine (FLU shot) (#1) 2023 05/15/2022, 05/22/2021, 04/19/2020, Additional history exists CKD PHOS USE SMARTSET 71983 05/01/2023 09/0 02/2022, 04/03/2022, 12/05/2020, Additional history exists HbA1c 08/23/2023 02/21/2023, 01/0 10/2022, 04/03/2022, Additional history exists TSH 09/24/2023 09/24/2022, 01/0 10/2022, 02/12/2022, Additional history exists DIABETES-FOOT EXAM 10/01/2023 10/01/2022, 0 10/26/2021, 12/05/2020, Additional history exists GFR 10/02/2023 04/01/2023, 02/23, 03/07/2023, Additional history exists Albumin/Creatinine Ratio 02/22/2024 023, 05/01/2022, 10/26/2021, Additional history exists CKD HGB USE SMARTSET 84272 04/01/202404/01, 03/14/2023, 03/14/2023, Additional history exists Depression [...] this encounter Medical Devices Implanted Type Area Mems Engineer Device Identifier Shelf Expiration Date Model / Serial / Lot Cath Thermodilution 6fr - [id number] Implanted:Qty: 1 on 01/24/2023 by Wilbur Rivera MD at [facility] [employer] [id number] 10/15/2024 [id number] / / [id number] Mirtac[employer] G4 - [id number] Implanted:Qty: 1 on 03/10/2023 at [facility] [employer] 11/19/2023 [id number] / / [id number] documented as of this encounter Visit Diagnoses Diagnosis Type 2 diabetes mellitus with stage 3b chronic kidney disease, without long-term current use of insulin (HCC)- Primary Chronic diastolic CHF (congestive heart failure) (HCC) Chronic diastolic heart failure Pulmonary hypertension (HCC) Other chronic pulmonary heart diseases Secondary hyperparathyroidism, renal (HCC) Secondary hyperparathyroidism (of renal origin) Paroxysmal atrial fibrillation (HCC) Atrial fibrillation Acquired hypothyroidism Unspecified hypothyroidism Obstructive sleep apnea of adult Obstructive sleep apnea (adult) (pediatric) Displacement of cervical intervertebral disc without myelopathy Tremor Abnormal involuntary movements Iron deficiency anemia, unspecified iron deficiency anemia type Angiodysplasia of colon with hemorrhage Angiodysplasia of intestine with hemorrhage Type 2 diabetes mellitus with polyneuropathy (HCC) Type II or unspecified type diabetes mellitus with neurological manifestations, not stated as uncontrolled Current moderate episode of major depressive disorder without prior episode (HCC) Moderate persistent asthma without complication Unspecified asthma Gastro-esophageal reflux disease without esophagitis Esophageal reflux Pure hypercholesterolemia Cardiac pacemaker in situ History of endometrial cancer Personal history of malignant neoplasm of other parts of uterus S/P mitral valve clip implantation Atherosclerosis of pauma coronary artery of pauma heart without angina pectoris Chronic rhinitis Elevated liver function tests Other abnormal blood chemistry documented in this encounter Advance Directives Documents on File Type Date Recorded Patient Merchandising Specialist Expl anation Advance Directives and Living Will 11/29/2022 ADVANCE DIRECTIVE / LIVING WILL Power of Outside Machinist Apprentice 11/29/2022 POWER OF A TTORNEY Advance Directives and Living Will 10/24/2014 ADVANCE DIRECTIVE / LIVING WILL Power of Outside Machinist Apprentice 10/24/2014 POWER OF A TTORNEY Latest Code [...] Agen t (per Health Care Power of Outside Machinist Apprentice document) Care Teams Precinct Commanding Officer Relationship Specialty Start Date End Date Florentin Calvo DO [address] [facility] [place] [facility] [address] PCP - General Internal Medicine 03/24/13 documented as of this encounter
--- OUTSIDE RECORDS SUMMARY | 2023-08-14 23:40 | External Medical Summary | Summary of Care ---
Author Name Unknown Organization [facility] Address [address] [place] [address] Phone [phone] Care Team Providers Care Dough Mixing Machine Operator Name Role Phone Florentin Calvo DO Primary Care Provider [phone] Reason for Visit * Reason Comments [facility]: Maintenance Encounter Details Date Type Department Care Team Description 04/10/2023 Home Visit [facility], [facility] [address] [facility] [place] [address] Mónica Angeles, AISHA [address] [place] [address] Allergies Active Allergy Reactions Severity Noted Date [...] as of this encounter (statuses as of 04/10/2023) Medications Medication Sig Dispensed Refills Start Date End Date Status OneTouch Verio w/Device KitIndications:Type 2 diabetes mellitus with hemoglobin A1c goal of less than 7.0% ([facility]) Use up to 1 times a day. 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 Last Assessment & Plan: Now just using [...] as of this encounter (statuses as of 04/10/2023) Resolved Problems Problem Noted Date Resolved Date [...] as of this encounter (statuses as of 04/10/2023) Immunizations Name Administration Dates Next Due COVID-19 [...] Sign Reading Time Taken Comments Blood Pressure 120/68 04/10/2023 1:18 PM EDT Pulse 68 04/10/2023 1:18 PM EDT Temperature 35.7 C (96.2 F) 04/10/2023 1:18 PM ED T Respiratory Rate 18 04/10/2023 1:18 PM EDT Oxygen Saturation 94% 04/10/2023 1:18 PM EDT Inhaled Oxygen Concentration - - Weight 70.5 kg (155 lb 8 oz) 04/10/2023 1:18 PM EDT Height - - Body Mass Index 25.88 04/01/2023 11:16 AM EDT documented in this encounter Functional Status Functional Status Response Date of Assess ment Are you deaf or do you have serious difficulty hearing? No-YUROK can hear w/ hearing aid 03/07/2023 Are [...] as of this encounter Progress Notes * Mónica Angeles RN - 04/10/2023 4:19 PM EDT [facility] Alarm Operator Visit Date: 04/10/2023 Time: 1:30 PM Name: Inga Barakat : 1940 Current Concerns: Patient seen for follow up- h/o surgical intervention of Tricuspid regurgitation Medical history- CHF, Pulmonary HTN, Afib Patient reports feeling really good since surgery. Shortness of breath minimal Weights ranging 153-155 on own scale VS wnl Lungs clear bilaterally Mild nonpitting edema BLE Voiding without difficulty Bowels wnl Appetite good Taking fluids well Denies discomfort Problems/Symptoms: Review of Systems Constitutional: Negative. HENT: Negative. Respiratory: Positive for shortness of breath. Cardiovascular: Positive for leg swelling. Gastrointestinal: Negative. Genitourinary: Negative. Musculoskeletal: Negative. Skin: Negative. Neurological: Negative. Hematological: Negative. Psychiatric/Behavioral: Negative. Physical Exam: BP 120/68 (BP Site: Right Arm, BP Position: Sitting, BP Cuff Size: Regular) | Pulse 68 | Temp 35.7 C (96.2 F) (Tympanic) | Resp 18 | SpO2 94% Pain 0 Physical Exam Constitutional: Appearance: Normal appearance. Cardiovascular: Rate and Rhythm: Normal rate. Pulses: Normal pulses. Heart sounds: Normal heart sounds. Pulmonary: Effort: Pulmonary effort is normal. Breath sounds: Normal breath sounds. Abdominal: General: Bowel sounds are normal. Palpations: Abdomen is soft. Musculoskeletal: General: Normal range of motion. Skin: General: Skin is warm and dry. Capillary Refill: Capillary refill takes 2 to 3 seconds. Neurological: General: No focal deficit present. Mental Status: She is alert and oriented to person, place, and time. Psychiatric: Mood and Affect: Mood normal. Behavior: Behavior normal. [facility]-10 Completed this Visit: No. Routine visit Treatment/Plan: Weights stable- weigh three times weekly- keep log Continue medications as prescribed Keep all upcoming MD appointments Fall precautions- walker with ambulation Fluids encouraged RN CM follow up in 7 weeks Home Interventions Provided: Reinforced current Plan of Care, including self-management and medication regimen Patient's Goals of Care: Recover from valve surgery Less sob Resolve leg pain and numbness Patient's 'Red Flags': Weight increase of 2-3lbs in 24 hr S/sx's UTI Sob above baseline Patient Needs to Remember: Call [facility] with any medical concerns/ red flags Referrals Needed: N/a Follow Up: Is there cellular connectivity/connectivity in the home? Yes Does the patient have internet in the home? Yes Patient encouraged to call the intake phone number for all urgent but not emergent issues. Scheduled to follow up with patient in 7 weeks. Mónica Varghese RN 04/10/2023 1:30 PM documented in this encounter Nursing Notes * Mónica Angeles RN - 04/10/2023 12:58 PM EDT Error documented in this encounter Plan of Treatment Upcoming Encounters Date Type Specialty Care Team Description 3 Laboratory Laboratory [place], Lab Scenery [address] [place] [address] 3 Office Visit Hematology Oncology Nereyda Metz CRNP [address] [place] [address] 3 Office Visit Cardiology Wilbur Rivera MD [address] [facility] [place] [address] 3 Office Visit Family Medicine Florentin Calvo, DO [address] [place] [address] 3 Office Visit Otolaryngology Blair Dupree, DO [address] [place] [address] 3 Hospital Encounter Endoscopy Jana Vieira, DO [address] [place] [address] 3 Surgery Endoscopy Jana Vieira, DO [address] [place] [address] ESOPHAGOGASTRODUODENOSCOPY (EGD), FLEXIBLE, TRANSORAL, ENDOSCOPIC ULTRASOUND 3 Office Visit Nephrology Rosario Green MD [address] [place] [address] 3 Cardiac Studies Cardiac Studies 3 Office Visit Ophthalmology Wilbur Benavides, DO [address] [place] [address] 3 Office Visit Family Medicine Florentin Calvo, DO [address] [place] [address] 3 Home Visit [facility] Mónica Angeles RN [address] [place] [address] 3 Office Visit Cardiology Stephen Hewitt, DO [address] [place] [address] 4 Office Visit Gynecology Oncology Chris Peng PA-C [address] [facility] [place] [address] Scheduled Procedures Name Priority Associated Diagnoses Date/Ti me ESOPHAGOGASTRODUODENOSCOPY ( EGD), FLEXIBLE, TRANSORAL, ENDOSCOPIC ULTRASOUND Elevated liver function tests 04/30/2023 10:15 AM EDT Health Maintenance Due Date Last Done Comments DIABETES-EYE EXAM 04/11/2023 04/11/2022, , 04/11/2022, Additional history exists Influenza Vaccine (FLU shot) (#1) 2023 05/15/2022, 05/22/2021, 04/19/2020, Additional history exists CKD PHOS USE SMARTSET 89364 05/01/2023 09/0 02/2022, 04/03/2022, 12/05/2020, Additional history exists HbA1c 08/23/2023 02/21/2023, 01/0 10/2022, 04/03/2022, Additional history exists TSH 09/24/2023 09/24/2022, 01/0 10/2022, 02/12/2022, Additional history exists DIABETES-FOOT EXAM 10/01/2023 10/01/2022, 0 10/26/2021, 12/05/2020, Additional history exists GFR 10/02/2023 04/01/2023, 02/23, 03/07/2023, Additional history exists Albumin/Creatinine Ratio 02/22/2024 023, 05/01/2022, 10/26/2021, Additional history exists CKD HGB USE SMARTSET 56423 04/01/202404/01, 03/14/2023, 03/14/2023, Additional history exists Depression [...] encounter Medical Devices Implanted Type Area Credit And Collections Representative Device Identifier Shelf Expiration Date Model / Serial / Lot Cath Thermodilution 6fr - [id number] Implanted:Qty: 1 on 01/24/2023 by Wilbur Rivera MD at [facility] [employer] [id number] 10/15/2024 [id number] / / [id number] Mirtaclip G4 - [id number] Implanted:Qty: 1 on 03/10/2023 at [facility] [employer] 11/19/2023 [id number] / / [id number] documented as of this encounter Advance Directives Documents on File Type Date Recorded Patient Supervisor Cd Area Expl anation Advance Directives and Living Will 11/29/2022 ADVANCE DIRECTIVE / LIVING WILL Power of Brake Repair Mechanic 11/29/2022 POWER OF A TTORNEY Advance Directives and Living Will 10/24/2014 ADVANCE DIRECTIVE / LIVING WILL Power of Brake Repair Mechanic 10/24/2014 POWER OF A TTORNEY Latest [...] Agents on File Name Relationship Healthcare Agent [facility] p Communication Bright [facility] Child Health Care [facility]gen t (per Health Care Power of Brake Repair Mechanic document) Care Teams Dough Mixing Machine Operator Relationship Specialty Start Date End Date Florentin Calvo, DO [address] [place] [address] PCP - General Internal Medicine 03/24/13 documented as of this encounter
--- OUTSIDE RECORDS SUMMARY | 2023-08-14 23:40 | External Medical Summary | Summary of Care ---
Author Name Unknown Organization [facility] Address [address] [place] [address] Phone [phone] Care Team Providers Care Electroencephalograph Technician Name Role Phone Florentin Calvo DO Primary Care Provider [phone] Reason for Visit * Reason Comments Outpatient Testing Encounter Details Date Type Department Care Team Description 04/01/2023 Laboratory [facility] [address] [facility] [address] [place] [facility] [facility] [address] [facility] [place] [address] Status post implantation of mitral valve leaflet clip; Type 2 diabetes mellitus with stage 3b chronic kidney disease, without long-term current use of insulin ([facility]); Chronic diastolic CHF (congestive heart failure) ([facility]) Allergies Active Allergy Reactions Severity Noted Date Comments Azithromycin Other (Please comment) 12/04/2021 QTC prolongation at [facility] Celecoxib Hives,Rash High 03/24/2013 Other reaction(s): [...] than 7.0% ([facility]) Use up to 1 times a [...] 3 08/05/2022 08/05/2023 Active OneTouch Delica Plus [id number] USE 2 TIMES A DAY DIRECTED 200 [...] (Lipitor)Indication s:PVD (peripheral vascular disease) ([facility]),Type 2 diabetes mellitus with stage 3a chronic kidney disease and hypertension ([facility]) TAKE ONE TABLET BY MOUTH EVERY DAY DIRECTED 100 Tablet 3 03/31/2023 Active Ipratropium [place] 0.03 % Nasal Solution (Atrovent)Indicatio ns:Chronic rhinitis [...] mitral valve clip implantation 03/06 Atherosclerosis of [place] coronary arter y without angina pectoris 02/13/2023 Last Assessment & Plan: Continue statin, sotalol. 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 No-SHAWNEE can hear w/ hearing aid 03/07/2023 Are [...] Care Team Description 04/01/2023 Imaging Radiology Arrived 04/02/2023 Office Visit Vascular Surgery Stephen Wright PA-C [address] [place] [address] 04/07/2023 Office Visit Gastroenterology Janine Cunningham CRNP [address] [place] [address] 04/07/2023 Office Visit Cardiology Emelina Aden CRNP [address] [place] [address] 04/10/2023 Home Visit [facility] Mónica Angeles RN [address] [place] [address] 04/11/2023 Office Visit Hematology Oncology Nereyda Metz CRNP [address] [place], [place] [id number] 04/16/2023 Office Visit Cardiology Wilbur Rivera MD [address] [place] [address] 04/18/2023 Office Visit Family Medicine Florentin Calvo DO [address] [place] [address] 04/23/2023 Office Visit Otolaryngology Blair Dupree DO [address] [place] [address] 05/09/2023 Office Visit Nephrology Rosario Green MD [address] [place] [facility] [place] [address] 05/14/2023 Cardiac Studies Cardiac Studies 05/22/2023 Office Visit Ophthalmology Wilbur Benavides, DO [address] [facility] [place] [address] 05/23/2023 Office Visit Family Medicine Florentin Calvo, DO [address] [facility], [place] [address] 06/17/2023 Office Visit Cardiology Stephen Hewitt, DO [address] [place] [address] 10/24/2023 Office Visit Gynecology Oncology Chris Peng PA-C [address] [place] [address] Pending Results Name Type Priority Associated Diagnoses Date /Time BASIC METABOLIC PANEL Lab Routine Status post implantation of mitral valve leaflet clip 04/01/2023 2:29 PM EDT BNP, NT-PRO Lab Routine Status post implantation of mitral valve leaflet clip 04/01/2023 2:29 PM EDT Health Maintenance Due Date Last Done Comments DIABETES-EYE EXAM 04/11/2023 04/11/2022, , 04/11/2022, Additional history exists Influenza Vaccine (FLU shot) (#1) 2023 05/15/2022, 05/22/2021, 04/19/2020, Additional history exists CKD PHOS USE SMARTSET 84708 05/01/202302/2022, 04/03/2022, 12/05/2020, Additional history exists HbA1c 08/23/2023 02/21/2023, 10/2022, 04/03/2022, Additional history exists GFR 09/14/2023 03/14/2023, 02/22, 03/06/2023, Additional history exists TSH 09/24/2023 09/24/2022, 10/2022, 02/12/2022, Additional history exists DIABETES-FOOT EXAM 10/01/2023 10/01/2022, 0 10/26/2021, 12/05/2020, Additional history exists Albumin/Creatinine Ratio 02/22/2024 023, 05/01/2022, 10/26/2021, Additional history exists CKD HGB USE SMARTSET 82674 03/14/202404/01, 03/14/2023, 03/14/2023, Additional history exists Depression Screening, Annual for Pts 12 and Over 03/14/2024 04/01/2023 DXA Scan 05/07/2025 05/07/2021, 12/24, 04/12/2013, [...] this encounter Medical Devices Implanted Type Area Corporate Recycling Manager Device Identifier Shelf Expiration Date Model / Serial / Lot Cath Thermodilution 6fr - [id number] Implanted:Qty: 1 on 01/24/2023 by Wilbur Rivera MD at [facility] [employer] [id number] 10/15/2024 [id number] / / [id number] Mirtaclip G4 - [id number] Implanted:Qty: 1 on 03/10/2023 at [facility] [employer] 11/19/2023 [id number] / / [id number] documented as of this encounter Procedures Procedure Name Priority Date/Time Associated Diagnosis Comments CBC Routine 04/01/2023 2:29 PM EDT Status post implantation of mitral valve leaflet clip documented in this encounter Results * (ABNORMAL) CBC (04/01/2023 2:29 PM EDT) WBC 9.08 4.00 - 10.80 K/uL 04/01/2023 2:36 PM EDT [facility] 57-10 RBC 3.88 3.85 - 5.15 M/uL 04/01/2023 2:36 PM EDT [facility] [place] 57-10 HGB 11.7(L) 12.0 - 15.3 g/dL 04/01/2023 2:36 PM EDT [facility] 57-10 HCT 36.3 36.0 - 45.2 % 04/01/2023 2:36 PM EDT [facility] 57-10 MCV 93.6 81.5 - 97.5 fL 04/01/2023 2:36 PM EDT [facility] 57-10 MCH 30.2 27.0 - 34.0 pg 04/01/2023 2:36 PM EDT [facility] 57-10 MCHC 32.2 32.0 - 36.0 g/dL 04/01/2023 2:36 PM EDT [facility] 57-10 RDW 16.4 11.5 - 15.5 % 04/01/2023 2:36 PM EDT [facility] 57-10 PLT 180 140 - 400 K/uL 04/01/2023 2:36 PM EDT [facility] 57-10 MPV 10.5 6.6 - 11.1 fL 04/01/2023 2:36 PM EDT [facility] 57-10 Blood Venous blood specimen / Unknown Venipuncture / Unknown 04/01/2023 2:29 PM EDT 04/01/2023 2:29 PM EDT Emelina Aden JESS LAB BLOOD ORDER [facility] 57-10 [address] [place] [address] documented in this encounter Visit Diagnoses Diagnosis Status post implantation of mitral valve leaflet clip Type 2 diabetes mellitus with stage 3b chronic kidney disease, without long-term current use of insulin ([facility]) Chronic diastolic CHF (congestive heart failure) ([facility]) Chronic diastolic heart failure documented in this encounter Advance Directives Documents on File Type Date Recorded Patient Real Estate Paralegal Expl anation Advance Directives and Living Will 11/29/2022 ADVANCE DIRECTIVE / LIVING WILL Power of Sorting Grapple Operator 11/29/2022 POWER OF A TTORNEY Advance Directives and Living Will 10/24/2014 ADVANCE DIRECTIVE / LIVING WILL Power of Sorting Grapple Operator 10/24/2014 POWER OF A TTORNEY Latest [...] on File Name Relationship Healthcare Agent [facility] p Communication Bright [place] [facility] t (per Health Care Power of Sorting Grapple Operator document) Care Teams Electroencephalograph Technician Relationship Specialty Start Date End Date Florentin Calvo, DO [address] [place] [address] PCP - General Internal Medicine 03/24/13 documented as of this encounter
--- OUTSIDE RECORDS SUMMARY | 2023-08-14 23:40 | External Medical Summary | Summary of Care ---
Author Name Unknown Organization [facility] Address [address] [place] [address] Phone [phone] Care Team Providers Care Test Engineering Technician Name Role Phone Florentin Calvo DO Primary Care Provider [phone] Reason for Visit * Reason Onset Date Comments Advice 04/04/2023 Dr. Erwin mcdowell Encounter Details Date Type Department Care Team Description 04/04/2023 Telephone Hematology/Oncology [facility] [address] [facility] [place] [address] Services, Scheduling [address] [place] [address] Advice (Dr. Hood patient ) Allergies Active Allergy Reactions Severity Noted Date Comments Azithromycin Other (Please comment) 12/04/2021 QTC prolongation at [facility] Celecoxib Hives,Rash High 03/24/2013 Other reaction(s): [...] as of this encounter (statuses as of 04/04/2023) Medications Medication Sig Dispensed Refills Start Date End Date Status OneTouch Verio w/Device KitIndications:Type 2 diabetes mellitus with hemoglobin A1c goal of less than 7.0% ([facility]) Use up to 1 times [...] 3 08/05/2022 08/05/2023 Active OneTouch Delica Plus [id number] USE 2 TIMES A DAY DIRECTED 200 [...] Oral Tablet (Lipitor)Indication s:PVD (peripheral vascular disease) ([facility]),Type 2 diabetes mellitus with stage 3a chronic kidney disease and hypertension ([facility]) TAKE ONE TABLET BY MOUTH EVERY DAY DIRECTED 100 Tablet 3 03/31/2023 Active Ipratropium [place] 0.03 % Nasal Solution (Atrovent)Indicatio ns:Chronic rhinitis [...] as of this encounter (statuses as of 04/04/2023) Active Problems Problem Noted Date S/P mitral valve clip implantation 03/06 Atherosclerosis of kaw coronary arter y without angina pectoris 02/13/2023 Last Assessment & Plan: Continue statin, sotalol. 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 Upon chart review, Provider previously wanted patient to check hgb every 2 weeks for 3 times to monitor for anemia. Last lab drawn on 04/01/23, Dr. Calvo states anemia has improved .Patient can have cbcd drawn before appointment per standing orders. Hayder can advise at appointment if cbcd needs tocontinue to be drawn and at what time frame. Called Kathy to notify, number provided not in service. Called number on file, . NotifiedPam of above, she states that she is concerned that Inga would not tell her symptoms, she would state "whatever you want to do" she is leaving a note for her brother, Bright, who should be the one bringing Inga to the appointment since she is leaving to return to her home. Notified Kathy if she is concerned about the anemia, the standard order is in, we could check cbcd prior to appointment so Hayder can review and then decide about future of needing blood work to monitor. Kathy verbalizes understanding and is agreeable. Scheduling: Please add lab appointment for cbcd at [facility] at 1:30 pm on 04/11/23 prior to appointment with Hayder. Thanks! * Telephone Encounter - RADHA Pham - 04/04/2023 8:35 AM EDT Patient's daughter Kathy called regarding pts upcoming appt on 04/11. She advised the last few appts her mom has needed lab work completed before them. She was inquiring if she needed lab work completedbefore this appt. Please contact Kathy at [phone] to advise. Thank you. documented in this encounter Plan of Treatment Upcoming Encounters Date Type Specialty Care Team Description 04/07/2023 Office Visit Gastroenterology Janine Cunningham CRNP [address] [place] [address] 04/07/2023 Office Visit Cardiology Emelina Aden CRNP [address] [place] [address] 04/10/2023 Home Visit [facility] [place] [address] [place] [address] 04/11/2023 Office Visit Hematology Oncology Hayder Metz CRNP [address] [place] [address] 04/16/2023 Office Visit Cardiology Wilbur Rivera MD [address] [place] [address] 04/18/2023 Office Visit Family Medicine Florentin Calvo, DO [address] [place] [address] 04/23/2023 Office Visit Otolaryngology Blair Dupree, DO [address] [place] [address] 05/09/2023 Office Visit Nephrology Rosario Green MD [address] [place] [address] 05/14/2023 Cardiac Studies Cardiac Studies 05/22/2023 Office Visit Ophthalmology Wilbur Benavides, DO [address] [place] [address] 05/23/2023 Office Visit Family Medicine Florentin Calvo, DO [address] [place] [address] 06/17/2023 Office Visit Cardiology Stephen Hewitt, DO [address] [place] [address] 10/24/2023 Office Visit Gynecology Oncology Chris Peng PA-C [address] [facility] [place] [address] Health Maintenance Due Date Last Done Comments DIABETES-EYE EXAM 04/11/2023 04/11/2022, , 04/11/2022, Additional history exists Influenza Vaccine (FLU shot) (#1) 2023 05/15/2022, 05/22/2021, 04/19/2020, Additional history exists CKD PHOS USE SMARTSET 86689 05/01/2023 09/0 02/2022, 04/03/2022, 12/05/2020, Additional history exists HbA1c 08/23/2023 02/21/2023, 01/0 10/2022, 04/03/2022, Additional history exists TSH 09/24/2023 09/24/2022, 01/0 10/2022, 02/12/2022, Additional history exists DIABETES-FOOT EXAM 10/01/2023 10/01/2022, 0 10/26/2021, 12/05/2020, Additional history exists GFR 10/02/2023 04/01/2023, 02/23, 03/07/2023, Additional history exists Albumin/Creatinine Ratio 02/22/2024 023, 05/01/2022, 10/26/2021, Additional history exists CKD HGB USE SMARTSET 59077 04/01/202404/01, 03/14/2023, 03/14/2023, Additional history exists Depression [...] this encounter Medical Devices Implanted Type Area Toll Gate Keeper Device Identifier Shelf Expiration Date Model / Serial / Lot Cath Thermodilution 6fr - [id number] Implanted:Qty: 1 on 01/24/2023 by [place] Rivera MD at [facility] [employer] [id number] 10/15/2024 [id number] / / [id number] Mirtaclip G4 - [id number] Implanted:Qty: 1 on 03/10/2023 at [facility] 11/19/2023 [id number] / / [id number] documented as of this encounter Advance Directives Documents on File Type Date Recorded Patient Property Coordinator Expl anation Advance Directives and Living Will 11/29/2022 ADVANCE DIRECTIVE / LIVING WILL Power of Master Ship 11/29/2022 POWER OF A TTORNEY Advance Directives and Living Will 10/24/2014 ADVANCE DIRECTIVE / LIVING WILL Power of Master Ship 10/24/2014 POWER OF A TTORNEY Latest Code [...] on File Name Relationship Healthcare Agent [facility] Bright Barakat Adult Child Health Care Dustyn t (per Health Care Power of Master Ship document) Care Teams Test Engineering Technician Relationship Specialty Start Date End Date Florentin Calvo, [address] [place] [place] [address] PCP - General Internal Medicine 03/24/13 documented as of this encounter
--- OUTSIDE RECORDS SUMMARY | 2023-08-14 23:41 | External Medical Summary | Summary of Care ---
Author Name Unknown Organization [facility] Address [address] [place] [address] Phone [phone] Care Team Providers Care Pipe Finisher Name Role Phone Florentin Calvo DO Primary Care Provider [phone] Reason for Visit * Reason Comments Follow Up Encounter Details Date Type Department Care Team Description 04/01/2023 Office Visit Family Practice [address] [place] [address] [address] [place] [address] Florentin Calvo DO [address] [place] [address] Type 2 diabetes mellitus with stage 3b chronic kidney disease, without long-term current use of insulin ([facility])*; Chronic diastolic CHF (congestive heart failure) (HCC); Pulmonary hypertension (HCC); Secondary hyperparathyroidism, renal (HCC); Paroxysmal atrial fibrillation (HCC); Acquired hypothyroidism; Obstructive sleep apnea of adult; Displacement of cervical intervertebral disc without myelopathy; Tremor; Iron deficiency anemia, unspecified iron deficiency anemia type; Angiodysplasia of colon with hemorrhage; Type 2 diabetes mellitus with polyneuropathy ([facility]); Current moderate episode of major depressive disorder without prior episode (HCC); Moderate persistent asthma without complication; Gastro-esophageal reflux disease without esophagitis; Pure hypercholesterolemia; Cardiac pacemaker in situ; History of endometrial cancer; S/P mitral valve clip implantation; Atherosclerosis of [place] coronary artery of [place] heart without angina pectoris; Chronic rhinitis Allergies [...] 3 08/05/2022 3 Active OneTouch Delica Plus [id number] USE 2 TIMES A DAY DIRECTED 200 Each 3 04/30/2022 3 Active Sotalol HCl 80 MG Oral Tablet (Betapace)Indicati ons:Chronic atrial fibrillation (HCC) TAKE ONE-HALF TABLET BY MOUTH EVERY DAY IN THE MORNING AND 1/2 TABLET BEFORE BEDTIME. 90 Tablet 3 04/03/2022 3 Active Torsemide 20 MG Oral Tablet [...] DIRECTED 100 Tablet 3 03/31/2023 Active Ipratropium [place] 0.03 % Nasal Solution (Atrovent)Indicati ons:Chronic rhinitis Administer 2 Sprays into nostril in the morning and 2 Sprays before bedtime. 90 mL 3 04/01/2023 Active Ipratropium [place] 0.03 % Nasal Solution Administer 2 Sprays into nostril in the morning and 2 Sprays before bedtime. 0 3 Discontinue d(Refill) Hospital, Clinic, or [...] mitral valve clip implantation 03/06 Atherosclerosis of [place] coronary arter y without angina pectoris 02/13/2023 [...] Obstructive sleep apnea of adult 015 Overview: HEAVY COIL WINDER Last Assessment & Plan: Now just using [...] or do you have serious difficulty hearing? No-KAKTOVIK can hear w/ hearing aid 03/07/2023 Are [...] 7.0% ([facility]) E11.9 Vertigo R42 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 claudication M48.061 Hypothyroidism E03.9 Displacement of cervical intervertebral disc without myelopathy M50.20 Meniere's disease H81.09 Paroxysmal atrial fibrillation ([facility]) I48.0 Obstructive sleep apnea of adult G47.33 Tremor R25.1 Iron deficiency anemia D50.9 Angiodysplasia of colon with hemorrhage K55.21 Acquired renal cyst N28.1 Controlled substance agreement signed Z79.899 Type 2 diabetes mellitus with polyneuropathy ([facility]) E11.42 Secondary hyperparathyroidism, renal ([facility]) N25.81 Pulmonary hypertension (HCC) I27.20 Current moderate episode of major depressive disorder without prior episode ([facility]) F32.1 Moderate persistent asthma without complication J45.40 Gastro-esophageal reflux disease without esophagitis K21.9 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22, N18.32 Cardiac pacemaker in situ Z95.0 History of endometrial cancer Z85.42 Normocytic anemia D64.9 Primary osteoarthritis of right knee M17.11 Severe tricuspid regurgitation I07.1 History of TIA (transient ischemic attack) Z86.73 Atherosclerosis of [place] coronary artery without angina pectoris I25.10 S/P [...] TAKE ONE TABLET BY MOUTH EVERY DAY [id number] Tablet 3 Ipratropium [place] 0.03 % Nasal Solution (Atrovent) Administer 2 [...] E11.9 200 Strip 3 OneTouch Delica Plus [id number] USE 2 TIMES A DAY DIRECTED 200 [...] wrist Obstructive sleep apnea of adult 09/09/2014 HEAVY COIL WINDER Pleural effusion Pulmonary arterial hypertension (HCC) Pure hypercholesterolemia 07/02/2021 PVD (peripheral vascular disease) ([facility]) 05/15/2022 Retinopathy Secondary hyperparathyroidism, renal ([facility]) 12/17/2018 Severe mitral valve regurgitation 10/30/2022 Severe tricuspid regurgitation 11/18/2022 Spinal stenosis 07/2002 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 claudication 03/24/2013 Vertigo 03/24/2013 Past Surgical History: Procedure Laterality Date COLONOSCOPY, DIAGNOSTIC (RECTUM) 10/12/2014 inflammatory tissue on bx, diverticulosis/[facility] COLONOSCOPY, DIAGNOSTIC (RECTUM) 01/05/2016 diverticulosis, multiple non-bleeding colonic angioectasias COLONOSCOPY, DIAGNOSTIC (RECTUM) 04/15/2016 angiodysplastic lesion, diverticulosis/COLONOSCOPY FLEXIBLE PROXIMAL DIAGNOSTIC performed by Izzy Stone MD at ENDOSCOPY [facility] COLONOSCOPY, DIAGNOSTIC (RECTUM) 11/10/2020 Hemorrhoids, multi polyps, diverticulosis in sigmoid colon/ biopsy show adenomatous polyp/ COLONOSCOPY FLEXIBLE PROXIMAL DIAGNOSTIC performed by [place] Stone MD at ENDOSCOPY [facility] COLONOSCOPY, DIAGNOSTIC (RECTUM) 03/11/2022 poor prep / [facility] CORONARY ANGIOGRAPHY W/RIGHT+LEFT CATH Right 01/24/2023 CORONARY ANGIOGRAPHY W/RIGHT+LEFT CATH performed by [place] Rivera MD at [facility] CYSTOSCOPY 06/2012 EGD, FLEXIBLE, DIAGNOSTIC 10/12/2014 normal bx, HH/[facility] EGD, FLEXIBLE, DIAGNOSTIC 01/05/2016 ESOPHAGOGASTRODUODENOSCOPY (EGD), FLEXIBLE, TRANSORAL, DIAGNOSTIC performed by [place] Stone MD at ENDOSCOPY [facility] EGD, FLEXIBLE, DIAGNOSTIC 03/11/2022 Multiple small non-bleeding fundic gland polyps / [facility] EGD, FLEXIBLE, DIAGNOSTIC 12/09/2022 mild-mod inflammation / [facility] LAPAROSCOPY TOTAL HYSTX, UTERUS 250GM OR LESS TUBE/OVARY N/A 02/22/2020 ROBOTIC LAPAROSCOPIC HYSTERECTOMY REMOVAL TUBES AND OVARIES FOR UTERUS 250GM OR LESS performed by Florentin Perez MD at OR [facility] LAPAROSCOPY; CHOLECYSTECTOMY N/A 06/06/2020 LIGATE/CUT OVIDUCT(S) MAMMOGRAM BREAST NEEDLE BIOPSY CORE LEFT Left 09/19/2015 benign NECK SPINE FUSION (CERV, BELOW C2) 1993 1999,2011 PATIENT EDU, LUMBAR LAMINECTOMY 2001 1996 too MA TONSILLECTOMY PRIMARY/SECONDARY LESS THAN AGE 12 Bilateral REPAIR RUPTURED ROTATOR CUFF, ACUTE Left 08/08/2015 SINUS SURGERY PROCEDURE NEC 1994 TRANSCATH REPAIR MITRAL VALVE, INITIAL Bilateral 03/06/2023 TRANSCATHETER MITRAL VALVE REPAIR performed by [place] Rivera MD at [facility] Review of patient's allergies indicates: Allergen Reactions [...] Azithromycin Other (Please comment) QTC prolongation at [facility] Nickel Swelling Other reaction(s): Unknown Review of [...] without long-term current use of insulin (HCC) (Primary) - TELEMEDICINE DIABETIC EYE - BASIC [...] S/P mitral valve clip implantation Atherosclerosis of [place] coronary artery of [place] heart without angina pectoris Continue ASA Chronic rhinitis - Ipratropium [place] 0.03 % Nasal Solution (Atrovent); Administer 2 [...] voices no complaints. documented in this encounter Plan of Treatment Upcoming Encounters Date Type Specialty Care Team Description 04/02/2023 Office Visit Vascular Surgery Stephen Wright PA-C [address] [place] [address] 04/07/2023 Office Visit Gastroenterology Janine Cunningham CRNP [address] [facility] [place] [address] 04/07/2023 Laboratory Laboratory Dominick Middleton [address] [facility] [address] 04/07/2023 Office Visit Cardiology Emelina Aden CRNP [address] [facility] [place] [address] 04/10/2023 Home Visit [facility] [place] [address] [place] [address] 04/11/2023 Office Visit Hematology Oncology Nereyda Metz CRNP [address] [facility] [place] [address] 04/16/2023 Office Visit Cardiology Wilbur Rivera MD [address] [place] [address] 04/18/2023 Office Visit Family Medicine Florentin Calvo, DO [address] [place] [address] 04/23/2023 Office Visit Otolaryngology Blair Dupree, DO [address] [place] [address] 05/09/2023 Office Visit Nephrology Rosario Green MD [address] [place] [address] 05/14/2023 Cardiac Studies Cardiac Studies 05/22/2023 Office Visit Ophthalmology Wilbur Benavides, DO [address] [place] [address] 05/23/2023 Office Visit Family Medicine Florentin Calvo, DO [address] [place] [address] 06/17/2023 Office Visit Cardiology Stephen Hewitt, DO [address] [place] [address] 10/24/2023 Office Visit Gynecology Oncology Chris Peng PA-C [address] [facility] [place] [address] Scheduled Orders Name Type Priority Associated Diagnoses Orde r Schedule BASIC METABOLIC PANEL Lab Routine Type 2 diabetes mellitus with stage 3b chronic kidney disease, without long-term current use of insulin (HCC) Chronic diastolic CHF (congestive heart failure) (HCC) Expected: 04/01/2023 (Approximate), Expires: 03/31/2024 Health Maintenance Due Date Last Done Comments DIABETES-EYE EXAM 04/11/2023 04/11/2022, , 04/11/2022, Additional history exists Influenza Vaccine (FLU shot) (#1) 2023 05/15/2022, 05/22/2021, 04/19/2020, Additional history exists CKD PHOS USE SMARTSET 02005 05/01/2023 09/0 02/2022, 04/03/2022, 12/05/2020, Additional history exists HbA1c 08/23/2023 02/21/2023, 01/0 10/2022, 04/03/2022, Additional history exists GFR 09/14/2023 03/14/2023, 02/22, 03/06/2023, Additional history exists TSH 09/24/2023 09/24/2022, 01/0 10/2022, 02/12/2022, Additional history exists DIABETES-FOOT EXAM 10/01/2023 10/01/2022, 0 10/26/2021, 12/05/2020, Additional history exists Albumin/Creatinine Ratio 02/22/2024 023, 05/01/2022, 10/26/2021, Additional history exists CKD HGB USE SMARTSET 92735 03/14/202403/14, 03/14/2023, 03/07/2023, Additional history exists Depression Screening, Annual for Pts 12 and Over 03/14/2024 03/14/2023 DXA Scan 05/07/2025 05/07/2021, 05/09/2016, 04/12/2013, Additional history exists COLONOSCOPY-EVERY 4 YRS [...] this encounter Medical Devices Implanted Type Area Mix House Operator Device Identifier Shelf Expiration Date Model / Serial / Lot Cath Thermodilution 6fr - [id number] Implanted:Qty: 1 on 01/24/2023 by [place] Rivera MD at [facility] [employer] [id number] 10/15/2024 [id number] / / [id number] Mirtaclip G4 - [id number] Implanted:Qty: 1 on 03/10/2023 at [facility] [employer] 11/19/2023 [id number] / / [id number] documented as of this encounter Visit [...] S/P mitral valve clip implantation Atherosclerosis of [place] coronary artery of [place] heart without angina pectoris Chronic rhinitis documented in this encounter Advance Directives Documents on File Type Date Recorded 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
--- OUTSIDE RECORDS SUMMARY | 2023-08-14 23:41 | External Medical Summary | Summary of Care ---
Author Name Unknown Organization [facility] Address [address] [place] [address] Phone [phone] Care Team Providers Care Blower Feeder Dyed Raw Stock Name Role Phone Florentin Calvo DO Primary Care Provider [phone] Encounter Details Date Type Department Care Team Description 03/27/2023 Result Scan Unspecified Department Stephen Hewitt DO [address] [facility] [address] <No scans attached> Allergies Active Allergy Reactions Severity Noted Date Comments Azithromycin Other (Please comment) 12/04/2021 QTC prolongation at [facility] Celecoxib Hives,Rash High 03/24/2013 Other [...] as of this encounter (statuses as of 03/27/2023) Medications Medication Sig Dispensed Refills Start Date End Date Status OneTouch Verio w/Device KitIndications:Type 2 diabetes mellitus with hemoglobin A1c goal of less than 7.0% ([facility]) Use up to 1 times [...] the evening. 60 Tablet 5 01/02/2023 Active Ipratropium [place] 0.03 % Nasal Solution Administer 2 Sprays into nostril in the morning and 2 Sprays before bedtime. 0 Active Vitamin B-12 100 MCG Oral Tablet [...] SLEEP 90 Tablet 0 01/17/2023 07/20/2023 Active Atorvastatin Calcium 20 MG Oral Tablet (Lipitor)Indication s:PVD (peripheral vascular disease) ([facility]),Type 2 diabetes mellitus with stage 3a chronic kidney disease and hypertension ([facility]) TAKE ONE TABLET BY MOUTH EVERY DAY DIRECTED 100 Tablet 1 08/20/2022 08/20/2023 Active Montelukast Sodium 10 MG Oral Tablet (Singulair)Indicati ons:Moderate persistent asthma without complication TAKE ONE TABLET BY MOUTH AT BEDTIME 100 Tablet 3 08/05/2022 08/05/2023 Active OneTouch Delica Plus [id number] USE 2 TIMES A DAY DIRECTED 200 [...] with breakfast. 100 Tablet 1 03/18/2023 Active Hospital, Clinic, or Other Facility Administered [...] as of this encounter (statuses as of 03/27/2023) Active Problems Problem Noted Date S/P mitral valve clip implantation 03/06 Atherosclerosis of [place] coronary arter y without angina pectoris 02/13/2023 Last Assessment & Plan: Continue statin, sotalol. 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 Never true 03/14/2023 Within the past 12 months, t he food you bought just didn't last and you didn't have money to get more. Never true 03/14/2023 Sex Assigned at Date Recorded Female 12/17/2018 11:06 AM EDT Job Start Date Occupation Industry Not on file Not on file Not on file documented as of this encounter Functional Status Functional Status Response Date of Assess ment Are you deaf or do you have serious difficulty hearing? No-[place] can hear w/ hearing aid 03/07/2023 Are [...] Encounters Date Type Specialty Care Team Description 03/31/2023 Office Visit Otolaryngology Cheri Castillo PA-C [address] [place] [address] 04/01/2023 Office Visit Family Medicine Florentin Calvo DO [address] [place] [address] 04/01/2023 Office Visit Orthopedics Juvenal Carvalho DO [address] [facility] [place] [address] 04/02/2023 Office Visit Vascular Surgery Stephen Wright PA-C [address] [place] [address] 04/07/2023 Office Visit Gastroenterology Janine Cunningham CRNP [address] [place] [address] 04/07/2023 Laboratory Laboratory [facility], Lab Kathy [address] [place], [place] [address] 04/07/2023 Office Visit Cardiology Emelina Aden CRNP [address] [place] [address] 04/10/2023 Home Visit [facility] Mónica Angeles RN [address] [place] [address] 04/11/2023 Office Visit Hematology Oncology Nereyda Metz CRNP [address] [facility] [place] [address] 04/16/2023 Office Visit Cardiology Wilbur Rivera MD [address] [place] [address] 05/09/2023 Office Visit Nephrology Rosario Green MD [address] [place], [place] [phone] 05/14/2023 Cardiac Studies Cardiac Studies 05/22/2023 Office Visit Ophthalmology Wilbur Benavides, DO [address] [facility] [place], [place] [id number] 05/23/2023 Office Visit Family Medicine Florentin Calvo DO [address] [place] [address] 06/17/2023 Office Visit Cardiology Stephen Hewitt DO [address] [place] [address] 10/24/2023 Office Visit Gynecology Oncology Chris Peng PA-C [address] [place] [address] Health Maintenance Due Date Last Done Comments DIABETES-EYE EXAM 04/11/2023 04/11/2022, , 04/11/2022, Additional history exists Influenza Vaccine (FLU shot) (#1) 2023 05/15/2022, 05/22/2021, 04/19/2020, Additional history exists CKD PHOS USE SMARTSET 79176 05/01/2023 090 02/2022, 04/03/2022, 12/05/2020, Additional history exists HbA1c 08/23/2023 02/21/2023, 10/2022, 04/03/2022, Additional history exists GFR 09/14/2023 03/14/2023, 02/22, 03/06/2023, Additional history exists TSH 09/24/2023 09/24/2022, 10/2022, 02/12/2022, Additional history exists DIABETES-FOOT EXAM 10/01/2023 10/01/2022, 0 10/26/2021, 12/05/2020, Additional history exists Albumin/Creatinine Ratio 02/22/2024 023, 05/01/2022, 10/26/2021, Additional history exists CKD HGB USE SMARTSET 98848 03/14/202403/14, 03/14/2023, 03/07/2023, Additional history exists Depression [...] this encounter Medical Devices Implanted Type Area Apartment Community Assistant Manager Device Identifier Shelf Expiration Date Model / Serial / Lot Cath Thermodilution 6fr - [id number] Implanted:Qty: 1 on 01/24/2023 by Wilbur Rivera MD at [facility] [place] [employer] TERE [id number] 10/15/2024 [id number] / / [id number] Mirtaclip G4 - [id number] Implanted:Qty: 1 on 03/10/2023 at [facility] [employer] 11/19/2023 [id number] / / [id number] documented as of this encounter Procedures Procedure Name Priority Date/Time Associated Diagnosis Comments CARDIOLOGY SCANNED RESULT 03/27/2023 documented in this encounter Results * CARDIOLOGY SCANNED RESULT (03/27/2023) 03/27/2023 Stephen Antony Marcelina DE LA [place] OTHER documented in this encounter Advance Directives Documents on File Type Date Recorded 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 Advance Directives and Living Will 11/29/2022 ADVANCE DIRECTIVE / LIVING WILL Power of Medical Billing And Coding Specialist 11/29/2022 POWER OF A TTORNEY Advance Directives and Living Will 10/24/2014 ADVANCE DIRECTIVE / LIVING WILL Power of Medical Billing And Coding Specialist 10/24/2014 POWER OF A TTORNEY Latest [...] Agen t (per Health Care Power of Medical Billing And Coding Specialist document) Care Teams Blower Feeder Dyed Raw Stock Relationship Specialty Start Date End Date Florentin Calvo DO [address] [place] [address] PCP - General Internal Medicine 03/24/13 documented as of this encounter
--- OUTSIDE RECORDS SUMMARY | 2023-08-14 23:41 | External Medical Summary | Summary of Care ---
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 No-[place] can hear w/ hearing aid 03/07/2023 Are [...] encounter Miscellaneous Notes * Telephone Encounter - Samreen Cesar formerly [facility] - 03/31/2023 12:38 PM EDTSigned Prescriptions: Disp Refills Atorvastatin Calcium 20 MG Oral Tablet (Li*100 Ta*3 Sig: TAKE ONE TABLET BY MOUTH EVERY DAY DIRECTEDAuthorizing Provider: GREY CALVO AOrzachary User: SAMREEN CESAR documented in this encounter Plan of Treatment Upcoming Encounters Date Type Specialty Care Team Description 04/01/2023 Office Visit Family Medicine Grey Calvo DO [address] [place] [address] 04/01/2023 Office Visit Orthopedics Juvenal Carvalho DO [address] [place] [address] 04/02/2023 Office Visit Vascular Surgery Stephen Wright PA-C [address] [place] [address] 04/07/2023 Office Visit Gastroenterology Janine Cunningham CRNP [address] [place] [address] 04/07/2023 Laboratory Laboratory Dominick Middleton [address] [place] [address] 04/07/2023 Office Visit Cardiology Emelina Aden CRNP [address] [place] [address] 04/10/2023 Home Visit [facility] [place] [address] [place] [address] 04/11/2023 Office Visit Hematology Oncology Nereyda Metz CRNP [address] [place], [place] [phone] 04/16/2023 Office Visit Cardiology Wilbur Rivera MD [address] [place] [address] 04/23/2023 Office Visit Otolaryngology Blair Dupree DO [address] [place] [address] 05/09/2023 Office Visit Nephrology Rosario Green MD [address] [place] [address] 05/14/2023 Cardiac Studies Cardiac Studies 05/22/2023 Office Visit Ophthalmology Wilbur Benavides DO [address] [place], [place] [phone] 05/23/2023 Office Visit Family Medicine Grey Calvo DO [address] [place] [address] 06/17/2023 Office Visit Cardiology Stephen Hewitt, DO [address] [place] [address] 10/24/2023 Office Visit Gynecology Oncology Chris Peng PA-C [address] [facility] [place] [address] Health Maintenance Due Date Last Done Comments DIABETES-EYE EXAM 04/11/2023 04/11/2022, , 04/11/2022, Additional history exists Influenza Vaccine (FLU shot) (#1) 2023 05/15/2022, 05/22/2021, 04/19/2020, Additional history exists CKD PHOS USE SMARTSET 01002 05/01/2023 09/0 02/2022, 04/03/2022, 12/05/2020, Additional history exists HbA1c 08/23/2023 02/21/2023, 01/0 10/2022, 04/03/2022, Additional history exists GFR 09/14/2023 03/14/2023, 0711/2022, 03/06/2023, Additional history exists TSH 09/24/2023 09/24/2022, 01/0 10/2022, 02/12/2022, Additional history exists DIABETES-FOOT EXAM 10/01/2023 10/01/2022, 0 10/26/2021, 12/05/2020, Additional history exists Albumin/Creatinine Ratio 02/22/2024 023, 05/01/2022, 10/26/2021, Additional history exists CKD HGB USE SMARTSET 54578 03/14/202403/14, 03/14/2023, 03/07/2023, Additional history exists Depression [...] encounter Medical Devices Implanted Type 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 Consultant Device Identifier Shelf Expiration Date Model / Serial / Lot Cath Thermodilution 6fr - [id number] Implanted:Qty: 1 on 01/24/2023 by Wilbur Rivera MD at [facility] [place] TERE [id number] 10/15/2024 [id number] / / [id number] Mirtaclip G4 - [id number] Implanted:Qty: 1 on 03/10/2023 at [facility] [employer] 11/19/2023 [id number] / / [id number] documented as of this encounter Visit Diagnoses Diagnosis PVD (peripheral vascular disease) (HCC) Peripheral vascular disease, unspecified Type 2 diabetes mellitus with stage 3a chronic kidney disease and hypertension (HCC) documented in this encounter Advance Directives Documents on File Type Date Recorded Patient Summons Server Expl anation Advance Directives and Living Will 11/29/2022 ADVANCE DIRECTIVE / LIVING WILL Power of Router Tender 11/29/2022 POWER OF A TTORNEY Advance Directives and Living Will 10/24/2014 ADVANCE DIRECTIVE / LIVING WILL Power of Router Tender 10/24/2014 POWER OF A TTORNEY Latest [...] Agents on File Name Relationship Healthcare Agent [facility] Communication Bright [place] Adult Child Health Care Frieda t (per Health Care Power of Router Tender document) Care Teams Form Raiser Relationship Specialty Start Date End Date Grey Calvo, DO [address] [place] [address] PCP - General Internal Medicine 03/24/13 documented as of this encounter
--- OUTSIDE RECORDS SUMMARY | 2023-08-14 23:41 | External Medical Summary | Summary of Care ---
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 180 Tab 1 09/21/2019 Active OneTouch Verio w/Device KitIndications:Ty pe 2 diabetes mellitus with hemoglobin A1c goal of less than 7.0% ([facility]) Use up to 1 times a [...] 06/13/2022 Active Allopurinol 100 MG Oral Tablet (Zyloprim)Indicat ions:Gout, arthropathy Take 2 Tablets by mouth at bedtime. 60 Tablet 11 10/03/2022 Active Fluticasone-Salme terol 250-50 MCG/ACT Inhalation Aerosol Powder [...] evening. 60 Tablet 5 01/02/2023 Active Ipratropium [place] 0.03 % Nasal Solution Administer 2 Sprays into nostril in the morning and 2 Sprays before bedtime. 0 Active Vitamin B-12 100 MCG Oral Tablet (vitamin B-12) Take 1 Tablet by mouth in the morning. 30 Tablet 3 02/13/2023 Active Folic Acid 1 MG Oral TabletIndications :Chronic atrial fibrillation (HCC) TAKE ONE TABLET BY MOUTH EVERY MORNING 100 Tablet 1 02/03/2023 4 Active Levothyroxine Sodium 125 MCG Oral Tablet (Levoxyl) TAKE ONE TABLET BY MOUTH FIRST THING IN THE MORNING 100 Tablet 1 01/31/2023 4 Active ALPRAZolam 0.5 MG Oral Tablet (xaNAX)Indication s:Persistent insomnia,Anxiety TAKE ONE TABLET BY MOUTH AT BEDTIME NEEDED FOR SLEEP OR ANXIETY USES HALF OF A TABLET NEEDED FOR ANXIETY AND SLEEP 90 Tablet 0 01/17/2023 3 Active Atorvastatin Calcium 20 MG Oral Tablet (Lipitor)Indicati ons:PVD (peripheral vascular disease) ([facility]),Type 2 diabetes mellitus with stage 3a chronic kidney disease and hypertension (HCC) TAKE ONE TABLET BY MOUTH EVERY DAY DIRECTED 100 Tablet 1 08/20/2022 3 Active Montelukast Sodium 10 MG Oral Tablet (Singulair)Indica tions:Moderate persistent asthma without complication TAKE ONE TABLET BY MOUTH AT BEDTIME 100 Tablet 3 08/05/2022 3 Active OneTouch Delica Plus [id number] USE 2 TIMES A DAY DIRECTED 200 Each 3 04/30/2022 3 Active Sotalol HCl 80 MG Oral Tablet (Betapace)Indicat ions:Chronic atrial fibrillation (HCC) TAKE ONE-HALF TABLET BY MOUTH EVERY DAY IN THE MORNING AND 1/2 TABLET BEFORE BEDTIME. 90 Tablet 3 04/03/2022 Active Sertraline HCl 100 MG Oral Tablet (Zoloft) Take 1.5 Tablets by mouth in the morning. 150 Tablet 1 03/10/2023 Active Torsemide 20 MG Oral Tablet (Demadex) Take 1 Tablet by mouth in the morning. 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 30 Tablet 2 03/07/2023 3 Discontinued Hospital, Clinic, or Other Facility Administered Medication [...] as of this encounter (statuses as of 03/17/2023) Active Problems Problem Noted Date S/P mitral valve clip implantation 03/06 Atherosclerosis of [place] coronary arter y without angina pectoris 02/13/2023 Last Assessment & Plan: Continue statin, sotalol. ASA History of TIA (transient ischemic attac k) 11/29/2022 Last Assessment & Plan: -Recent admission to [facility], presented with numbness of tongue and [...] Obstructive sleep apnea of adult 015 Overview: HISTOLOGY ASSISTANT Last Assessment & Plan: Now just using [...] as of this encounter (statuses as of 03/17/2023) Resolved Problems Problem Noted Date Resolved Date [...] as of this encounter (statuses as of 03/17/2023) Immunizations Name Administration Dates Next Due COVID-19 mRNA, LNP-s, No Pre serve, 2-Dose Series (Moderna) 06/23/2021,10/25/2020,09/28/2020 COVID-19, LNP-s, No Preserve , Larry-sucrose, Ages 12+ (Pfizer) 04/09/2022 Covid-19, Mrna, Lnp-s, Pf, B ivalent, 30 Mcg, IM, 12 yrs and above (SourceLair) 09/10/2022 HEP A - Hepatitis A (Adult [...] Sign Reading Time Taken Comments Blood Pressure 124/78 03/17/2023 2:17 PM EDT Pulse 78 03/17/2023 2:17 PM EDT Temperature - - Respiratory Rate 16 03/17/2023 2:17 PM EDT Oxygen Saturation - - Inhaled Oxygen Concentration - - Weight 69.4 kg (153 lb) 03/17/2023 2:17 PM EDT Height - - Body Mass Index 25.46 03/14/2023 10:07 AM EDT documented in this encounter Functional [...] Progress Notes * Stephen Hewitt, DO - 03/17/2023 3:01 PM EDT Cardiology Outpatient Follow-up Inga Barakat is a 82 year old female who is seen for follow-up of valvular heart disease. HPI: This is an 82-year-old female who is being seen post mitral clip. She is here today with her daughter. She is doing remarkably well. She was volume overloaded going in to the procedure and was able to lose several lb of fluid weight before even leaving the hospital. She still has some weakness especially of her lower extremities due to disuse but overall things are going well. She denies orthopnea. She has had no lower extremity edema. No heart palpitations or tachycardia. 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 Obstructive sleep apnea of adult 09/09/2014 HISTOLOGY ASSISTANT Pleural effusion Pulmonary arterial hypertension ([facility]) Pure hypercholesterolemia 07/02/2021 PVD (peripheral vascular disease) ([facility]) 05/15/2022 Retinopathy Secondary hyperparathyroidism, renal ([facility]) 12/17/2018 Severe mitral valve regurgitation 10/30/2022 Severe tricuspid regurgitation 11/18/2022 Spinal stenosis 07/2002 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 claudication 03/24/2013 Vertigo 03/24/2013 Patient Active Problem List Diagnosis Code Type 2 diabetes mellitus with hemoglobin A1c goal of less than 7.0% ([facility]) E11.9 Vertigo R42 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 claudication M48.061 Hypothyroidism E03.9 Displacement of cervical intervertebral disc without myelopathy M50.20 Meniere's disease H81.09 Paroxysmal atrial fibrillation ([facility]) I48.0 Obstructive sleep apnea of adult G47.33 Tremor R25.1 Iron deficiency anemia D50.9 Angiodysplasia of colon with hemorrhage K55.21 Acquired renal cyst N28.1 Controlled substance agreement signed Z79.899 Type 2 diabetes mellitus with polyneuropathy ([facility]) E11.42 Secondary hyperparathyroidism, renal ([facility]) N25.81 Pulmonary hypertension ([facility]) I27.20 Current moderate episode of major depressive disorder without prior episode ([facility]) F32.1 Moderate persistent asthma without complication J45.40 Gastro-esophageal reflux disease without esophagitis K21.9 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 ([facility]) E11.319 Pure hypercholesterolemia E78.00 Aneurysm of left carotid artery ([facility]) I72.0 Aortic atherosclerosis ([facility]) I70.0 Chronic kidney disease, stage 3b ([facility]) N18.32 PVD (peripheral vascular disease) ([facility]) I73.9 Chronic diastolic CHF (congestive heart failure) ([facility]) I50.32 Type 2 diabetes mellitus with stage 3b chronic kidney disease, without long- term current use ofinsulin ([facility]) E11.22, N18.32 Cardiac pacemaker in situ Z95.0 History of endometrial cancer Z85.42 Normocytic anemia D64.9 Primary osteoarthritis of right knee M17.11 Severe tricuspid regurgitation I07.1 History of TIA (transient ischemic attack) Z86.73 Atherosclerosis of [place] coronary artery without angina pectoris I25.10 S/P mitral valve clip implantation Z98.890, Z95.818 Past Surgical History: Procedure Laterality Date COLONOSCOPY, DIAGNOSTIC (RECTUM) 10/12/2014 inflammatory tissue on bx, diverticulosis/[facility] COLONOSCOPY, DIAGNOSTIC (RECTUM) 01/05/2016 diverticulosis, multiple non-bleeding colonic angioectasias COLONOSCOPY, DIAGNOSTIC (RECTUM) 04/15/2016 angiodysplastic lesion, diverticulosis/COLONOSCOPY FLEXIBLE PROXIMAL DIAGNOSTIC performed by Izzy Stone MD at ENDOSCOPY [facility] COLONOSCOPY, DIAGNOSTIC (RECTUM) 11/10/2020 Hemorrhoids, multi polyps, diverticulosis in sigmoid colon/ biopsy show adenomatous polyp/ COLONOSCOPY FLEXIBLE PROXIMAL DIAGNOSTIC performed by Maine Stone MD at ENDOSCOPY [facility] COLONOSCOPY, DIAGNOSTIC (RECTUM) 03/11/2022 poor prep / [facility] CORONARY ANGIOGRAPHY W/RIGHT+LEFT CATH Right 01/24/2023 CORONARY ANGIOGRAPHY W/RIGHT+LEFT CATH performed by Wilbur Rivera MD at [facility] CYSTOSCOPY 06/2012 EGD, FLEXIBLE, DIAGNOSTIC 10/12/2014 normal bx, HH/[facility] EGD, FLEXIBLE, DIAGNOSTIC 01/05/2016 ESOPHAGOGASTRODUODENOSCOPY (EGD), FLEXIBLE, TRANSORAL, DIAGNOSTIC performed by Maine Stone MD at [facility]OSCOPY [facility] EGD, FLEXIBLE, DIAGNOSTIC 03/11/2022 Multiple small non-bleeding fundic gland polyps / [facility] EGD, FLEXIBLE, DIAGNOSTIC 12/09/2022 mild-mod inflammation / [facility] LAPAROSCOPY TOTAL HYSTX, UTERUS 250GM OR LESS TUBE/OVARY N/A 02/22/2020 ROBOTIC LAPAROSCOPIC HYSTERECTOMY REMOVAL TUBES AND OVARIES FOR UTERUS 250GM OR LESS performed by Florentin Perez MD at OR [facility] LAPAROSCOPY; CHOLECYSTECTOMY N/A 06/06/2020 LIGATE/CUT OVIDUCT(S) MAMMOGRAM BREAST NEEDLE BIOPSY CORE LEFT Left 09/19/2015 benign NECK SPINE FUSION (CERV, BELOW C2) 1993 1999,2011 PATIENT EDU, LUMBAR LAMINECTOMY 2001 1996 too [place] TONSILLECTOMY PRIMARY/SECONDARY LESS THAN AGE 12 Bilateral REPAIR RUPTURED ROTATOR CUFF, ACUTE Left 08/08/2015 SINUS SURGERY PROCEDURE NEC 1994 TRANSCATH REPAIR MITRAL VALVE, INITIAL Bilateral 03/06/2023 TRANSCATHETER MITRAL VALVE REPAIR performed by Wilbur Rivera MD at [facility] Family History Problem Relation Age of Onset [...] Azithromycin Other (Please comment) QTC prolongation at [facility] Nickel Swelling Other reaction(s): Unknown Current Outpatient Medications Medication Sig Dispense Refill ferrous sulfate (FEOSOL) 325 (65 FE) MG Tablet Take 1 Tab by mouth 2 times a day. 180 Tab 1 OneTouch Verio w/Device Kit Use up to 1 times a day. E11.9 1 Kit 0 Aspirin 81 MG Oral Tablet Delayed Release Take 1 Tablet by mouth daily. Acetaminophen 325 MG Oral Tablet (Tylenol) Take 2 Tablets by mouth every 6 hours as needed. 100Tablet 0 Vitamin D3 50 MCG (1999 [place]) [...] Tablet in the evening. 60 Tablet 5 Ipratropium [place]un 0.03 % Nasal Solution Administer 2 Sprays into nostril in the morning and 2Sprays before bedtime. Vitamin B-12 100 MCG Oral Tablet (vitamin [...] FOR ANXIETY AND SLEEP 90 Tablet 0 Atorvastatin Calcium 20 MG Oral Tablet (Lipitor) TAKE ONE TABLET BY MOUTH EVERY DAY [id number] Tablet 1 Montelukast Sodium 10 MG Oral Tablet (Singulair) TAKE ONE TABLET BY MOUTH AT BEDTIME 100 Tablet3 OneTouch Delica Plus [id number] USE 2 TIMES A DAY DIRECTED 200 Each 3 Sotalol HCl 80 MG Oral Tablet (Betapace) TAKE ONE-HALF TABLET BY MOUTH EVERY DAY IN THE MORNINGAND 1/2 TABLET BEFORE BEDTIME. 90 Tablet 3 Sertraline HCl 100 MG Oral Tablet (Zoloft) Take 1.5 Tablets by mouth in the morning. 150 Tablet1 Torsemide 20 MG Oral Tablet (Demadex) Take 1 Tablet by mouth in the morning. 100 Tablet 3 Current Facility-Administered Medications Medication Dose Route Frequency Provider Last Rate Last Admin Albuterol Sulfate (Proventil) (2.5 MG/3ML) 0.083% inhalation solution 2.5 mg 2.5 mg Nebulizer PRN Abigail Goncalves PA-C Albuterol Sulfate (Proventil) (5 MG/ML) 0.5% *conc* inhalation solution 2.5 mg 2.5 mg NebulizerPRN Abigail Goncalves PA-C Albuterol Sulfate (Proventil) (5 MG/ML) 0.5% *conc* inhalation solution 2.5 mg 2.5 mg NebulizerPRN Veronique JESS Meneses Albuterol Sulfate (Proventil) (2.5 MG/3ML) 0.083% inhalation solution 2.5 mg 2.5 mg Nebulizer PRN Veronique JESS Meneses 2.5 mg at 10/31/22 1441 ROS: Review of Systems: See HPI for pertinent positives. All other review of systems is negative. PHYSICAL EXAMINATION BP 124/78 | Pulse 78 | Resp 16 | Wt 69.4 kg (153 lb) | BMI 25.46 kg/m | BSA 1.78 m Body mass index is 25.46 kg/m. General: no acute distress and stated [...] Neuro: grossly normal exam Laboratory Data Review: Latest Reference Range & Units 03/14/23 10:53 Sodium 135 - 146 mmol/L 139 Potassium 3.5 - 5.1 mmol/L 3.8 Chloride 98 - 107 mmol/L 98 CO2 22 - 32 mmol/L 26 BUN 6 - 20 mg/dL 47 (H) Creatinine 0.5 - 1.0 mg/dL 2.0 (H) Estimated Glomerular Filtration Rate >=60 mL/min 25 (L) Anion Gap 7 - 15 mmol/L 15 Glucose 70 - 120 mg/dL 101 Calcium 8.4 - 10.2 mg/dL 9.7 Protein 6.0 - 8.3 g/dL 6.6 CBC Rpt ! CBC WITH WBC DIFFERENTIAL Rpt ! WBC 4.00 - 10.80 K/uL 7.73 HGB 12.0 - 15.3 g/dL 11.2 (L) HCT 36.0 - 45.2 % 36.8 MCV 81.5 - 97.5 fL 95.3 PLT 140 - 400 K/uL 224 Absolute Neutrophils 1.80 - 7.70 K/uL 4.92 Absolute Lymphocytes 1.00 - 4.80 K/ul 0.98 (L) Absolute Monocytes 0.00 - 1.10 K/uL 0.78 Absolute Eosinophils 0.00 - 0.70 K/uL 0.92 (H) Absolute Basophils 0.00 - 0.20 K/uL 0.10 IRON SCREEN, INCLUDING TIBC Rpt Iron 33 - 151 ug/dL 56 Iron Binding Capacity 250 - 425 ug/dL 321 Transferrin Saturation Percent 15 - 55 % 17 Ferritin 13 - 150 ng/mL 441 (H) Albumin 3.8 - 5.0 g/dL 4.4 AST 10 - 35 U/L 62 (H) ALT 10 - 35 U/L 31 Alkaline Phosphatase 35 - 130 U/L 178 (H) Bilirubin, Total <=1.2 mg/dL 0.4 (H): Data is abnormally high (L): Data is abnormally low !: Data is abnormal Rpt: View report in Results Review for more information Impression: 1. Status post mitral clip for severe mitral regurgitation 2. Residual severe tricuspid regurgitation 3. HFpEF 4. PAF 5. Status post dual-chamber pacemaker 6. Hypertension and diabetes Plan: The patient is still recovering from her recent mitral clip but does over all doing well. We decreased her torsemide to 20 mg daily and she will hold her Jardiance. I plan follow-up again in 3 monthsor earlier if needed. This chart was completed in part utilizing [employer] Speech Voice Recognition Software. Grammatical errors, random [...] a total of 30-39 minutes (exact time 39 mins) on the date of service in preparation, delivery, and documentation of the care provided to Inga Barakat excluding any time spent in the performance of separately billed services. Stephen Hewitt DO Cardiology, [facility] [address] [place] [address] 03/17/2023 documented in this encounter Nursing Notes * Anna Smith CMA - 03/17/2023 2:19 PM EDT Examination Room: 17 Name: Inga Barakat Date of : (1940) Reason for Visit: F/U Interim Hospitalization(s): NONE Problems/Concerns: DENIED Chest Pain/SOB: DENIED [facility] is a way you can talk to [...] Encounters Date Type Specialty Care Team Description 03/19/2023 Imaging Radiology 03/31/2023 Office Visit Otolaryngology Cheri Castillo PA-C [address] [place] [address] 04/01/2023 Office Visit Family Medicine Florentin Calvo DO [address] [facility] [place] [address] 04/01/2023 Office Visit Orthopedics Juvenal Carvalho DO [address] [place] [address] 04/02/2023 Office Visit Vascular Surgery Stephen Wright PA-C [address] [place] [address] 04/07/2023 Office Visit Gastroenterology Janine Cunningham CRNP [address] [place] [address] 04/07/2023 Laboratory Laboratory MiddletonDominick Kathy [address] [place] [address] 04/07/2023 Office Visit Cardiology Emelina Aden CRNP [address] [place] [address] 04/10/2023 Home Visit [facility] Mónica Angeles RN [address] [place] [address] 04/11/2023 Office Visit Hematology Oncology Nereyda Metz CRNP [address] [facility] [place] [address] 04/16/2023 Office Visit Cardiology Wilbur Rivera MD [address] [place] [address] 05/09/2023 Office Visit Nephrology Rosario Green MD [address] [place] [address] 05/14/2023 Cardiac Studies Cardiac Studies 05/22/2023 Office Visit Ophthalmology Wilbur Benavides DO [address] [place] [address] 05/23/2023 Office Visit Family Medicine Florentin Calvo, [address] [place] [address] 06/17/2023 Office Visit Cardiology Stephen Hewitt DO [address] [place] [address] 10/24/2023 Office Visit Gynecology Oncology Chris Peng PA-C [address] [place] [address] Health Maintenance Due Date Last Done Comments DIABETES-EYE EXAM 04/11/2023 04/11/2022, , 04/11/2022, Additional history exists Influenza Vaccine (FLU shot) (#1) 2023 05/15/2022, 05/22/2021, 04/19/2020, Additional history exists CKD PHOS USE SMARTSET 26087 05/01/2023 09/0 02/2022, 04/03/2022, 12/05/2020, Additional history exists HbA1c 08/23/2023 02/21/2023, 01/0 10/2022, 04/03/2022, Additional history exists GFR 09/14/2023 03/14/2023, 02/22, 03/06/2023, Additional history exists TSH 09/24/2023 09/24/2022, 01/0 10/2022, 02/12/2022, Additional history exists DIABETES-FOOT EXAM 10/01/2023 10/01/2022, 0 10/26/2021, 12/05/2020, Additional history exists Albumin/Creatinine Ratio 02/22/202402/21/2 023, 05/01/2022, 10/26/2021, Additional history exists CKD HGB USE SMARTSET 06107 03/14/202403/14, 03/14/2023, 03/07/2023, Additional history exists Depression [...] this encounter Medical Devices Implanted Type Area Waistband Setter Lockstitch Device Identifier Shelf Expiration Date Model / Serial / Lot Cath Thermodilution 6fr - [id number] Implanted:Qty: 1 on 01/24/2023 by Wilbur Rivera MD at [facility] [employer] [id number] 10/15/2024 [id number] / / [id number] Mirtaclip G4 - [id number] Implanted:Qty: 1 on 03/10/2023 at [facility] [employer] 11/19/2023 [id number] / / [id number] documented as of this encounter Visit Diagnoses Diagnosis 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)- Primary Nonrheumatic mitral valve regurgitation Nonrheumatic tricuspid valve regurgitation Tricuspid valve disorders, specified as nonrheumatic SSS (sick sinus syndrome) (HCC) Sinoatrial node dysfunction documented in this encounter Advance Directives Documents on File Type Date Recorded Patient [facility] Director Expl anation Advance Directives and Living Will 11/29/2022 ADVANCE DIRECTIVE / LIVING WILL Power of Real Property Evaluator 11/29/2022 POWER OF A TTORNEY Advance Directives and Living Will 10/24/2014 ADVANCE DIRECTIVE / LIVING WILL Power of Real Property Evaluator 10/24/2014 POWER OF A TTORNEY Latest Code [...] Agents on File Name Relationship [facility] t (per Health Care Power of Real Property Evaluator document) Care Teams Police Stenographer Relationship Specialty Start Date End Date Florentin Calvo, [address] [place] [address] PCP - General Internal Medicine 03/24/13 documented as of this encounter
--- OUTSIDE RECORDS SUMMARY | 2023-08-14 23:41 | External Medical Summary | Summary of Care ---
Author Name Unknown Organization [facility] Address [address] [place] [address] Phone [phone] Care Team Providers Care Work Force Advisor Name Role Phone Grey Calvo DO Primary Care Provider [phone] Reason for Visit * Reason Onset Date Comments Medication Refill 03/17/2023 Encounter Details Date Type Department Care Team Description 03/17/2023 Refill Family Practice [facility] [place] [address] [place] [address] Grey Calvo DO [address] [place] [address] Allergies Active Allergy Reactions Severity Noted Date Comments Azithromycin Other (Please comment) 12/04/2021 QTC prolongation at [facility] Celecoxib Hives,Rash High 03/24/2013 Other reaction(s): Rash/Hives/Itching. [...] Tab 1 09/21/2019 Active OneTouch Verio w/Device KitIndications:Typ e 2 diabetes [...] evening. 60 Tablet 5 01/02/2023 Active Ipratropium [place] 0.03 % Nasal Solution Administer 2 Sprays [...] Oral Tablet (Lipitor)Indicatio ns:PVD (peripheral vascular disease) ([facility]),Type 2 diabetes mellitus with stage 3a chronic kidney disease and hypertension ([facility]) TAKE ONE TABLET BY MOUTH EVERY DAY DIRECTED 100 Tablet 1 08/20/2022 3 Active Montelukast Sodium 10 MG Oral Tablet (Singulair)Indicat ions:Moderate persistent asthma without complication TAKE ONE TABLET BY MOUTH AT BEDTIME 100 Tablet 3 08/05/2022 3 Active OneTouch Delica Plus [id number] USE 2 TIMES A DAY DIRECTED 200 Each 3 04/30/2022 3 Active Sotalol HCl 80 MG Oral Tablet (Betapace)Indicati ons:Chronic atrial fibrillation (HCC) TAKE ONE-HALF TABLET BY MOUTH EVERY DAY IN THE MORNING AND 1/2 TABLET BEFORE BEDTIME. 90 Tablet 3 04/03/2022 Active Torsemide 20 MG Oral Tablet (Demadex) Take 1 Tablet by mouth in the morning. 100 Tablet 3 03/17/2023 Active Sertraline HCl 100 MG Oral Tablet (Zoloft) Take 1.5 Tablets by mouth in the morning. 150 Tablet 1 03/17/2023 Active Sertraline HCl 100 MG Oral Tablet (Zoloft) Take 1.5 Tablets by mouth in the morning. 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 ASA History of TIA (transient ischemic attac k) 11/29/2022 Last Assessment & Plan: -Recent admission to [facility], presented with numbness of tongue and slurred [...] Obstructive sleep apnea of adult 015 Overview: SPECIAL PROGRAMS DIRECTOR Last Assessment & Plan: Now just [...] or do you have serious difficulty hearing? No-MECHOOPDA can hear w/ hearing aid 03/07/2023 Are [...] Telephone Encounter - Grey Calvo DO - 03/17/2023 4:26 PM EDTSigned Prescriptions: Disp Refills Sertraline HCl 100 MG Oral Tablet (Zoloft) 150 Ta*1 Sig: Take 1.5 Tablets by mouth in the morning.Authorizing Provider: GREY CALVO * Telephone Encounter - Marti Kuhn RPh - 03/17/2023 2:43 PM EDT REFILL REQUEST: sertraline 100mg (taking 150mg per day) [facility] Adherence Pharmacist requesting 100 day supply for member to be sent to [facility]. Through our STAR Medication Adherence program, patient flagged as non-compliant to medications and was contacted to discuss medication adherence. Patient would like to switch to [facility] for prescription fills. Igna needs a new prescription to be sent to [facility]. Marti Kuhn, Pharm.D. Health Plan Pharmacist [facility] [phone] [email or web address] documented in this encounter Plan of Treatment Upcoming Encounters Date Type Specialty Care Team Description 03/19/2023 Imaging Radiology 03/31/2023 Office Visit Otolaryngology Cheri Castillo PA-C [address] [place] [facility] [place] [address] 04/01/2023 Office Visit Family Medicine Grey Calvo, [address] [place] [address] 04/01/2023 Office Visit Orthopedics Juvenal Carvalho DO [address] [facility] [place] [address] 04/02/2023 Office Visit Vascular Surgery Stephen Wright PA-C [address] [place] [address] 04/07/2023 Office Visit Gastroenterology Janine Cunningham CRNP [address] [place] [address] 04/07/2023 Laboratory Laboratory [facility], Lab Kathy [address] [place] [address] 04/07/2023 Office Visit Cardiology Emelina Aden CRNP [address] [place] [address] 04/10/2023 Home Visit [facility] Mónica Angeles RN [address] [place] [address] 04/11/2023 Office Visit Hematology Oncology [facility] [address] 04/16/2023 Office Visit Cardiology Wilbur Rivera MD [address] [place] [address] 05/09/2023 Office Visit Nephrology Rosario Green MD [address] [facility] [place] [address] 05/14/2023 Cardiac Studies Cardiac Studies 05/22/2023 Office Visit Ophthalmology Wilbur Benavides DO [address] [place], [place] [address] 05/23/2023 Office Visit Family Medicine Grey Calvo, DO [address] [place] [facility] [place] [address] 06/17/2023 Office Visit Cardiology Stephen Hewitt DO [address] [place] [address] 10/24/2023 Office Visit Gynecology Oncology Chris Peng PA-C [address] [place] [address] Health Maintenance Due Date Last Done Comments DIABETES-EYE EXAM 04/11/2023 04/11/2022, , 04/11/2022, Additional history exists Influenza Vaccine (FLU shot) (#1) 2023 05/15/2022, 05/22/2021, 04/19/2020, Additional history exists CKD PHOS USE SMARTSET 85544 05/01/2023 09/0 02/2022, 04/03/2022, 12/05/2020, Additional history exists HbA1c 08/23/2023 02/21/2023, 01/0 10/2022, 04/03/2022, Additional history exists GFR 09/14/2023 03/14/2023, 02/22, 03/06/2023, Additional history exists TSH 09/24/2023 09/24/2022, 01/0 10/2022, 02/12/2022, Additional history exists DIABETES-FOOT EXAM 10/01/2023 10/01/2022, 0 10/26/2021, 12/05/2020, Additional history exists Albumin/Creatinine Ratio 02/22/2024 023, 05/01/2022, 10/26/2021, Additional history exists CKD HGB USE SMARTSET 65706 03/14/202403/14, 03/14/2023, 03/07/2023, Additional history exists Depression [...] this encounter Medical Devices Implanted Type Area Agricultural Appraiser Device Identifier Shelf Expiration Date Model / Serial / Lot Cath Thermodilution 6fr - [id number] Implanted:Qty: 1 on 01/24/2023 by Wilbur Rivera MD at [facility] [employer] [id number] 10/15/2024 [id number] / / [id number] Mirtaclip G4 - [id number] Implanted:Qty: 1 on 03/10/2023 at [facility] [employer] 11/19/2023 [id number] / / [id number] documented as of this encounter Advance Directives Documents on File Type Date Recorded Patient Line Appliance Assembler Expl anation Advance Directives and Living Will 11/29/2022 ADVANCE DIRECTIVE / LIVING WILL Power of Manager Of Merchandising 11/29/2022 POWER OF A TTORNEY Advance Directives and Living Will 10/24/2014 ADVANCE DIRECTIVE / LIVING WILL Power of Manager Of Merchandising 10/24/2014 POWER OF A TTORNEY Latest Code [...] [facility] Communication Bright Barakat Adult Child Health Care Frieda t (per Health Care Power of Manager Of Merchandising document) Care Teams Work Force Advisor Relationship Specialty Start Date End Date Grey Calvo, [address] [place] [address] PCP - General Internal Medicine 03/24/13 documented as of this encounter
--- OUTSIDE RECORDS SUMMARY | 2023-08-14 23:41 | External Medical Summary ---
Author Name Unknown Address Unknown Organization K01:[facility] - [address] [place] [address] Laboratory Report Ordering Provider Test Date Status ARTIE CARRENO 04/01/2023 14:29:22 Final Exclude Heart Failure: <300 pg/mL
Diagnose Heart Failure:
Age <50 yr: >450 pg/mL
50-75 yr: >900 pg/mL
>75 yr: >1800 pg/mL
GFR is 30-59 mL/min: >1200 pg/mL or Age- adjusted values
GFR <30 mL/min: do not use, not reliable

Prognostic threshold: 1000 pg/mL Observation Date Value Abnormality Reference (Units ) Status BNP, Pro-hormone 04/01/2023 14:29:22 4368 Above high no rmal <300 (pg/mL) Final Performing Location [facility] [address] [place] [address]
--- OUTSIDE RECORDS SUMMARY | 2023-08-14 23:41 | External Medical Summary | Summary of Care ---
Author Name Unknown Organization [facility] Address [address] [place] [address] Phone [phone] Care Team Providers Care Envelope Folding Machine Adjuster Name Role Phone Florentin Calvo DO Primary Care Provider [phone] Reason for Visit * Reason Onset Date Comments Advice 03/14/2023 Paper for rush austin Encounter Details Date Type Department Care Team Description 03/14/2023 Telephone Family Practice [address] [facility] [address] [place] [address] Florentin Calvo DO [address] [place] [address] Advice (Paper for rush johnson) Allergies Active Allergy Reactions Severity Noted Date [...] as of this encounter (statuses as of 03/18/2023) Medications Medication Sig Dispensed Refills Start Date End Date Status ferrous sulfate (FEOSOL) 325 (65 FE) MG Tablet Take 1 Tab by mouth 2 times a day. 180 Tab 1 09/21/2019 Active OneTouch Verio w/Device KitIndications:Type 2 diabetes mellitus [...] evening. 60 Tablet 5 01/02/2023 Active Ipratropium [place] 0.03 % Nasal Solution Administer 2 Sprays [...] 3 08/05/2022 08/05/2023 Active OneTouch Delica Plus [id number] USE 2 TIMES A DAY DIRECTED 200 Each 3 04/30/2022 04/30/2023 Active Sotalol HCl 80 MG Oral Tablet (Betapace)Indicatio ns:Chronic atrial fibrillation (HCC) TAKE ONE-HALF TABLET BY MOUTH EVERY DAY IN THE MORNING AND 1/2 TABLET BEFORE BEDTIME. 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 No-EWIIAAPAAYP can hear w/ hearing aid 03/07/2023 Are [...] Telephone Encounter - Hilda Awad LPN - 03/14/2023 4:28 PM EDT Sent my iHandle message. * Telephone Encounter - Florentin Calvo DO - 03/14/2023 4:24 PM EDT Patient may have a letter about needing caregiver for her son's jury duty * Telephone Encounter - RADHA Smith - 03/14/2023 3:41 PM EDT Daughter called in and Inga and Julien are going to need someone to stay with them for the month of May. The son who is coming in to do so just got a letter for jury duty and would like Dr Calvo to either write letter or sign one her daughter is writing. I told her that I would pass the word to him but I was not sure he would do this Please advise documented in this encounter Plan of Treatment Upcoming Encounters Date Type Specialty Care Team Description 03/19/2023 Imaging Radiology 03/31/2023 Office Visit Otolaryngology Cheri Castillo PA-C [address] [place] [address] 04/01/2023 Office Visit Family Medicine Florentin Calvo DO [address] [place] [address] 04/01/2023 Office Visit Orthopedics Juvenal Carvalho DO [address] [place] [address] 04/02/2023 Office Visit Vascular Surgery Stephen Wright PA-C [address] [place], [place] [address] 04/07/2023 Office Visit Gastroenterology Janine Cunningham CRNP [address] [place] [address] 04/07/2023 Laboratory Laboratory [place], Lab Kathy [address] [place] [address] 04/07/2023 Office Visit Cardiology Emelina Aden CRNP [address] [place] [address] 04/10/2023 Home Visit [facility] [place] [address] [place] [address] 04/11/2023 Office Visit Hematology Oncology Nereyda Metz CRNP [address] [place] [address] 04/16/2023 Office Visit Cardiology Wilbur Rivera MD [address] [place] [address] 05/09/2023 Office Visit Nephrology Rosario Green MD [address] [place] [address] 05/14/2023 Cardiac Studies Cardiac Studies 05/22/2023 Office Visit Ophthalmology Wilbur Benavides DO [address] [place] [address] 05/23/2023 Office Visit Family Medicine Florentin Calvo DO [address] [place] [address] 06/17/2023 Office Visit Cardiology Stephen Hewitt DO [address] [place] [address] 10/24/2023 Office Visit Gynecology Oncology Chris Peng PA-Shonna [address] [facility] [place] [address] Health Maintenance Due Date Last Done Comments DIABETES-EYE EXAM 04/11/2023 04/11/2022, , 04/11/2022, Additional history exists Influenza Vaccine (FLU shot) (#1) 2023 05/15/2022, 05/22/2021, 04/19/2020, Additional history exists CKD PHOS USE SMARTSET 43516 05/01/2023 09/0 02/2022, 04/03/2022, 12/05/2020, Additional history exists HbA1c 08/23/2023 02/21/2023, 01/0 10/2022, 04/03/2022, Additional history exists GFR 09/14/2023 03/14/2023, 02/22, 03/06/2023, Additional history exists TSH 09/24/2023 09/24/2022, 01/0 10/2022, 02/12/2022, Additional history exists DIABETES-FOOT EXAM 10/01/2023 10/01/2022, 0 10/26/2021, 12/05/2020, Additional history exists Albumin/Creatinine Ratio 02/22/2024 023, 05/01/2022, 10/26/2021, Additional history exists CKD HGB USE SMARTSET 85911 03/14/202403/14, 03/14/2023, 03/07/2023, Additional history exists Depression [...] this encounter Medical Devices Implanted Type Area Weight Loss Consultant Device Identifier Shelf Expiration Date Model / Serial / Lot Cath Thermodilution 6fr - [id number] Implanted:Qty: 1 on 01/24/2023 by Wilbur Rivera MD at [facility] [employer] [id number] 10/15/2024 [id number] / / [id number] Mirtaclip G4 - [id number] Implanted:Qty: 1 on 03/10/2023 at [facility] [employer] 11/19/2023 [id number] / / [id number] documented as of this encounter Advance Directives Documents on File Type Date Recorded Patient Bridge Expert Expl anation Advance Directives and Living Will 11/29/2022 ADVANCE DIRECTIVE / LIVING WILL Power of Fish Cutter 11/29/2022 POWER OF A TTORNEY Advance Directives and Living Will 10/24/2014 ADVANCE DIRECTIVE / LIVING WILL Power of Fish Cutter 10/24/2014 POWER OF A TTORNEY Latest Code [...] Code 03/06/2023 11:16 AM 03/06/2023 5:08 PM Thi s order reflects the patients [...] Agen t (per Health Care Power of Fish Cutter document) Care Teams Envelope Folding Machine Adjuster Relationship Specialty Start Date End Date Florentin Calvo, DO [address] [facility] [place] [address] PCP - General Internal Medicine 03/24/13 documented as of this encounter
--- OUTSIDE RECORDS SUMMARY | 2023-08-14 23:41 | External Medical Summary | Summary of Care ---
Author Name Unknown Organization [facility] Address [address] [place] [address] Phone [phone] Care Team Providers Care Pocket Flap Creasing Machine Operator Name Role Phone Florentin Calvo DO Primary Care Provider [phone] Reason for Visit * Reason Onset Date Comments Test Results 03/18/202303/18 Encounter Details Date Type Department Care Team Description 03/18/2023 Telephone Family Practice 65 [facility] [place] [address] [place] [address] Florentin Calvo DO [address] [place] [address] Test Results () Allergies Active Allergy Reactions Severity Noted Date Comments Azithromycin Other (Please comment) 12/04/2021 QTC prolongation at [facility] Celecoxib Hives,Rash High 03/24/2013 Other reaction(s): Rash/Hives/Itching. [...] as of this encounter (statuses as of 03/19/2023) Medications Medication Sig Dispensed Refills Start Date End Date Status OneTouch Verio w/Device KitIndications:Ty pe 2 diabetes mellitus with hemoglobin A1c goal of less than 7.0% ([facility]) Use up to 1 times a day. [...] evening. 60 Tablet 5 01/02/2023 Active Ipratropium [place] 0.03 % Nasal Solution Administer 2 Sprays [...] Oral Tablet (Lipitor)Indicati ons:PVD (peripheral vascular disease) ([facility]),Type 2 diabetes mellitus with stage 3a chronic kidney disease and hypertension ([facility]) TAKE ONE TABLET BY MOUTH EVERY DAY DIRECTED 100 Tablet 1 08/20/2022 3 Active Montelukast Sodium 10 MG Oral Tablet (Singulair)Indica tions:Moderate persistent asthma without complication TAKE ONE TABLET BY MOUTH AT BEDTIME 100 Tablet 3 08/05/2022 3 Active OneTouch Delica Plus [id number] USE 2 TIMES A DAY DIRECTED 200 [...] with breakfast. 100 Tablet 1 03/18/2023 Active ferrous sulfate (FEOSOL) 325 (65 FE) MG Tablet Take 1 Tab by mouth 2 times a day. 180 Tab 1 09/21/2019 3 Discontinued Hospital, Clinic, or Other Facility [...] as of this encounter (statuses as of 03/19/2023) Active Problems Problem Noted Date S/P mitral valve clip implantation 03/06 Atherosclerosis of [place] coronary arter y without angina pectoris 02/13/2023 Last Assessment & Plan: Continue statin, sotalol. ASA History of TIA (transient ischemic attac k) 11/29/2022 Last Assessment & Plan: -Recent admission to [facility], presented with numbness of tongue and slurred [...] Obstructive sleep apnea of adult 015 Overview: HAND DRAWER IN Last Assessment & Plan: Now just using [...] as of this encounter (statuses as of 03/19/2023) Resolved Problems Problem Noted Date Resolved Date [...] as of this encounter (statuses as of 03/19/2023) Immunizations Name Administration Dates Next Due COVID-19 mRNA, LNP-s, No Pre serve, 2-Dose Series (Moderna) 06/23/2021,10/25/2020,09/28/2020 COVID-19, LNP-s, No Preserve , Larry-sucrose, Ages 12+ (Pfizer) 04/09/2022 Covid-19, Mrna, Lnp-s, Pf, B ivalent, 30 Mcg, IM, 12 yrs and above ([facility]) 09/10/2022 HEP A - Hepatitis A (Adult [...] or do you have serious difficulty hearing? No-NEW [place] can hear w/ hearing aid 03/07/2023 Are [...] Miscellaneous Notes * Telephone Encounter - RADHA Smith - 03/19/2023 1:47 PM EDT Hilda miguel'venita waiting til Apr 01 appt for BP check * Telephone Encounter - Florentin Calvo DO - 03/19/2023 8:44 AM EDT Noted. * Telephone Encounter - Hilda Awad LPN - 03/18/2023 5:28 PM EDT Patient is aware and will comply. Please call and schedule bp visit with nurse visit. Dr Calvo, please note cardiology lowered torsemide. Thank you * Telephone Encounter - Hilda Awad LPN - 03/18/2023 5:23 PM EDT ----- Message from Florentin Calvo DO sent at 03/16/2023 8:52 AM EDT ----- Anemia has improved. Kidney function has worsened slightly. Continue current medications. Repeat BMP in 2 weeks Decrease Ferrous sulfate to 325 mg daily documented in this encounter Plan of Treatment Upcoming Encounters Date Type Specialty Care Team Description 03/31/2023 Office Visit Otolaryngology Cheri Castillo PA-C [address] [place] [address] 04/01/2023 Office Visit Family Medicine Florentin Calvo, DO [address] [place] [address] 04/01/2023 Office Visit Orthopedics Juvenal Carvalho DO [address] [place] [address] 04/02/2023 Office Visit Vascular Surgery Stephen Wright PA-C [address] [place] [address] 04/07/2023 Office Visit Gastroenterology Janine Cunningham CRNP [address] [place] [address] 04/07/2023 Laboratory Laboratory [facility], Lab Kathy [address] [place] [address] 04/07/2023 Office Visit Cardiology Emelina Aden CRNP [address] [place] [address] 04/10/2023 Home Visit [facility] [place] [address] [place] [address] 04/11/2023 Office Visit Hematology Oncology Nereyda Metz CRNP [address] [place] [address] 04/16/2023 Office Visit Cardiology Wilbur Rivera MD [address] [place] [address] 05/09/2023 Office Visit Nephrology Rosario Green MD [address] [place] [address] 05/14/2023 Cardiac Studies Cardiac Studies 05/22/2023 Office Visit Ophthalmology Wilbur Benavides, DO [address] [place] [address] 05/23/2023 Office Visit Family Medicine Florentin Calvo, DO [address] [place] [address] 06/17/2023 Office Visit Cardiology Stephen Hewitt DO [address] [place] [address] 10/24/2023 Office Visit Gynecology Oncology Chris Peng PA-C [address] [place] [address] Health Maintenance Due Date Last Done Comments DIABETES-EYE EXAM 04/11/2023 04/11/2022, , 04/11/2022, Additional history exists Influenza Vaccine (FLU shot) (#1) 2023 05/15/2022, 05/22/2021, 04/19/2020, Additional history exists CKD PHOS USE SMARTSET 42254 05/01/2023 09/0 02/2022, 04/03/2022, 12/05/2020, Additional history exists HbA1c 08/23/2023 02/21/2023, 01/0 10/2022, 04/03/2022, Additional history exists GFR 09/14/2023 03/14/2023, 02/22, 03/06/2023, Additional history exists TSH 09/24/2023 09/24/2022, 010 10/2022, 02/12/2022, Additional history exists DIABETES-FOOT EXAM 10/01/2023 10/01/2022, 0 10/26/2021, 12/05/2020, Additional history exists Albumin/Creatinine Ratio 02/22/2024 023, 05/01/2022, 10/26/2021, Additional history exists CKD HGB USE SMARTSET 50818 03/14/202403/14, 03/14/2023, 03/07/2023, Additional history exists Depression [...] this encounter Medical Devices Implanted Type Area Electronic Court Recorder Device Identifier Shelf Expiration Date Model / Serial / Lot Cath Thermodilution 6fr - [id number] Implanted:Qty: 1 on 01/24/2023 by Wilbur Rivera MD at [facility] [employer] [id number] 10/15/2024 [id number] / / [id number] Mirtaclip G4 - [id number] Implanted:Qty: 1 on 03/10/2023 at [facility] [employer] 11/19/2023 [id number] / / [id number] documented as of this encounter Advance Directives Documents on File Type Date Recorded Patient Facilities Assistant Expl anation Advance Directives and Living Will 11/29/2022 ADVANCE DIRECTIVE / LIVING WILL Power of Instructional Media Services Technician 11/29/2022 POWER OF A TTORNEY Advance Directives and Living Will 10/24/2014 ADVANCE DIRECTIVE / LIVING WILL Power of Instructional Media Services Technician 10/24/2014 POWER OF A TTORNEY Latest [...] File Name Relationship Healthcare [facility] Communication Bright Barakat Adult Child Health Care Agen t (per Health Care Power of Instructional Media Services Technician document) Care Teams Pocket Flap Creasing Machine Operator Relationship Specialty Start Date End Date Florentin Calvo, DO [address] [place] [address] PCP - General Internal Medicine 03/24/13 documented as of this encounter
--- OUTSIDE RECORDS SUMMARY | 2023-08-14 23:41 | External Medical Summary ---
Author Name Unknown Address Unknown Organization K0G:[facility] [address] - [address] [place] [address] Laboratory Report Ordering Provider Test Date Status ARTIE CARRENO 04/01/2023 14:29:22 Final Observation Date Value Abnormality Reference (Units ) Status BUN 04/01/2023 14:29:22 51 Above high normal 6-20 (mg/dL) Final Creatinine 04/01/2023 14:29:22 1.5 Above high normal 0.5-1.0 (mg/dL) Final Glomerular filtration rate/1.73 sq M.predicted [Volume Rate/Area] in Serum, Plasma or Blood by Creatinine-based formula (CKD-EPI) 04/01/2023 14:29:22 35 Below low normal >=60 (mL/min) Final eGFR is calculated based on the CKD-EPI 2020 equation SODIUM 04/01/2023 14:29:22 138 135-146 (m mol/L) Final Potassium 04/01/2023 14:29:22 3.5 3.5-5.1 (m mol/L) Final Cl 04/01/2023 14:29:22 100 98-107 (mm ol/L) Final CO2 04/01/2023 14:29:22 22 22-32 (mmo l/L) Final Anion gap 04/01/2023 14:29:22 16 Above high normal 7- 15 (mmol/L) Final Glucose 04/01/2023 14:29:22 172 Above high normal 70 -120 (mg/dL) Final Calcium 04/01/2023 14:29:22 9.5 8.4-10.2 ( mg/dL) Final Performing Location [facility] [address] [place] [address]
--- OUTSIDE RECORDS SUMMARY | 2023-08-14 23:41 | External Medical Summary | Summary of Care ---
Author Name Unknown Organization [facility] Address [address] [place] [address] Phone [phone] Care Team Providers Care Injection Molder Name Role Phone Florentin Calvo DO Primary Care Provider [phone] Reason for Visit * Reason Onset Date Comments Appointment 03/14/2023 Encounter Details Date Type Department Care Team Description 03/14/2023 Telephone Orthopaedics [facility] [address] [place] [address] Juvenal Carvalho DO [address] [facility] [address] Appointment Allergies Active Allergy Reactions Severity Noted Date Comments Azithromycin Other (Please comment) 12/04/2021 QTC prolongation at [facility] Celecoxib Hives,Rash High 03/24/2013 Other reaction(s): [...] than 7.0% ([facility]) Use up to 1 times a day. [...] evening. 60 Tablet 5 01/02/2023 Active Ipratropium Gustavus 0.03 % Nasal Solution Administer 2 Sprays [...] vascular disease) ([facility]),Type 2 diabetes mellitus with stage 3a chronic kidney disease and hypertension ([facility]) TAKE ONE TABLET BY MOUTH EVERY DAY DIRECTED 100 Tablet 1 08/20/2022 08/20/2023 Active Montelukast Sodium 10 MG Oral Tablet (Singulair)Indicati ons:Moderate persistent asthma without complication TAKE ONE TABLET BY MOUTH AT BEDTIME 100 Tablet 3 08/05/2022 08/05/2023 Active OneTouch Delica Plus [id number] USE 2 TIMES A DAY DIRECTED 200 Each 3 04/30/2022 04/30/2023 Active Sotalol HCl 80 MG Oral Tablet (Betapace)Indicatio ns:Chronic atrial fibrillation (HCC) TAKE ONE-HALF TABLET BY MOUTH EVERY DAY IN THE MORNING AND 1/2 TABLET BEFORE BEDTIME. 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 30 Tablet 2 03/07/2023 Active Sertraline HCl 100 MG Oral Tablet (Zoloft) Take 1.5 Tablets by mouth in the morning. 150 Tablet 1 03/10/2023 Active Hospital, Clinic, or Other Facility Administered [...] mitral valve clip implantation 03/06 Atherosclerosis of [place] coronary arter y without angina pectoris 02/13/2023 Last Assessment & Plan: Continue statin, sotalol. 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 Thanks! * Telephone Encounter - RADHA Ribeiro - 03/17/2023 2:07 PM EDT Per ILYA Piper: Called and spoke with Kathy, patients daughter. Advised her of all the clinical PRP information, she is agreeable. Can we add her on to 04/01 @ 2pm for Right knee PRP? * Telephone Encounter - RADHA Givens - 03/14/2023 2:16 PM EDT [place], Pt's daughter, Kathy, is calling to set pt up for a PRP injection to right knee. She has already had prev by Dr. Carvalho, and for a 60 min appt slot. Please call Kathy at [phone] to set up the appt. Thank you. documented in this encounter Plan of Treatment Upcoming Encounters Date Type Specialty Care Team Description 03/17/2023 Office Visit Cardiology Stephen Hewitt DO [address] [place] [address] Arrived 03/19/2023 Imaging Radiology 03/31/2023 Office Visit Otolaryngology Cheri Castillo PA-C [address] [place] [address] 04/01/2023 Office Visit Family Medicine Florentin Calvo, DO [address] [place] [address] 04/01/2023 Office Visit Orthopedics Juvenal Carvalho DO [address] [place] [address] 04/02/2023 Office Visit Vascular Surgery Stephen Wright PA-C [address] [place] [address] 04/07/2023 Office Visit Gastroenterology Janine Cunningham CRNP [address] [place] [address] 04/07/2023 Laboratory Laboratory [facility] [address] [place] [address] 04/07/2023 Office Visit Cardiology Emelina Aden CRNP [address] [place] [address] 04/10/2023 Home Visit [facility] Mónica Angeles RN [address] [place] [address] 04/11/2023 Office Visit Hematology Oncology Nereyda Metz CRNP [address] [place], [place] [id number] 04/16/2023 Office Visit Cardiology Wilbur Rivera MD [address] [place] [address] 05/09/2023 Office Visit Nephrology Rosario Green MD [address] [place] [address] 05/14/2023 Cardiac Studies Cardiac Studies 05/22/2023 Office Visit Ophthalmology Wilbur Benavides DO [address] [place] [address] 05/23/2023 Office Visit Family Medicine Florentin Calvo, [address] [place] [address] 10/24/2023 Office Visit Gynecology Oncology Chris Peng PA-C [address] [place] [address] Health Maintenance Due Date Last Done Comments DIABETES-EYE EXAM 04/11/2023 04/11/2022, , 04/11/2022, Additional history exists Influenza Vaccine (FLU shot) (#1) 2023 05/15/2022, 05/22/2021, 04/19/2020, Additional history exists CKD PHOS USE SMARTSET 89220 05/01/2023 09/0 02/2022, 04/03/2022, 12/05/2020, Additional history exists HbA1c 08/23/2023 02/21/2023, 01/0 10/2022, 04/03/2022, Additional history exists GFR 09/14/2023 03/14/2023, 02/22, 03/06/2023, Additional history exists TSH 09/24/2023 09/24/2022, 01/0 10/2022, 02/12/2022, Additional history exists DIABETES-FOOT EXAM 10/01/2023 10/01/2022, 0 10/26/2021, 12/05/2020, Additional history exists Albumin/Creatinine Ratio 02/22/20242 023, 05/01/2022, 10/26/2021, Additional history exists CKD HGB USE SMARTSET 07256 03/14/202403/14, 03/14/2023, 03/07/2023, Additional history exists Depression [...] this encounter Medical Devices Implanted Type Area Hand Box Folder Device Identifier Shelf Expiration Date Model / Serial / Lot Cath Thermodilution 6fr - [id number] Implanted:Qty: 1 on 01/24/2023 by Wilbur Rivera MD at [facility] [employer] [id number] 10/15/2024 [id number] / / [id number] Mirtaclip G4 - [id number] Implanted:Qty: 1 on 03/10/2023 at [facility] [employer] 11/19/2023 [id number] / / [id number] documented as of this encounter Advance Directives Documents on File Type Date Recorded Patient Transfusion Nurse Expl anation Advance Directives and Living Will 11/29/2022 ADVANCE DIRECTIVE / LIVING WILL Power of Computerized Mill Recorder 11/29/2022 POWER OF A TTORNEY Advance Directives and Living Will 10/24/2014 ADVANCE DIRECTIVE / LIVING WILL Power of Computerized Mill Recorder 10/24/2014 POWER OF A TTORNEY Latest Code [...] Agents on File Name Relationship Healthcare Agent [facility] p Communication Bright [facility] Adult Child Health Care Agen t (per Health Care Power of Computerized Mill Recorder document) Care Teams Injection Molder Relationship Specialty Start Date End Date Florentin Calvo, DO [address] [place] [address] PCP - General Internal Medicine 03/24/13 documented as of this encounter
--- OUTSIDE RECORDS SUMMARY | 2023-08-14 23:41 | External Medical Summary | Summary of Care ---
Author Name Unknown Organization [facility] Address [address] [place] [address] Phone [phone] Care Team Providers Care Auto Phone Installer Name Role Phone Florentin Calvo DO Primary Care Provider [phone] Reason for Visit * Reason Comments Follow Up Left ear pain Encounter Details Date Type Department Care Team Description 03/31/2023 Office Visit Otolaryngology [facility] [address] [facility] [place] [address] Cheri Castillo PA-C [address] [place] [address] Eustachian tube dysfunction, bilateral*; Chronic DARRON (middle ear effusion), right Allergies Active Allergy Reactions Severity Noted Date Comments Azithromycin Other (Please comment) 12/04/2021 QTC prolongation at [facility] Celecoxib Hives,Rash High 03/24/2013 Other reaction(s): [...] Dispensed Refills Start Date End Date Status [facility] KitIndications:Type 2 diabetes mellitus with hemoglobin A1c goal of less than 7.0% ([facility]) Use up to 1 times a [...] evening. 60 Tablet 5 01/02/2023 Active Ipratropium Cromwell 0.03 % Nasal Solution Administer 2 Sprays into nostril in the morning and 2 Sprays before bedtime. 0 Active Vitamin B-12 100 MCG Oral Tablet (vitamin B-12) Take 1 Tablet by mouth in the morning. 30 Tablet 3 02/13/2023 Active Folic Acid 1 MG Oral TabletIndications:C hronic atrial fibrillation ([facility]) TAKE ONE TABLET BY MOUTH EVERY MORNING [...] (Lipitor)Indication s:PVD (peripheral vascular disease) ([facility]),Type 2 diabetes mellitus with stage 3a chronic kidney disease and hypertension ([facility]) TAKE ONE TABLET BY MOUTH EVERY DAY DIRECTED 100 Tablet 1 08/20/2022 08/20/2023 Active Montelukast Sodium 10 MG Oral Tablet (Singulair)Roseliati ons:Moderate persistent asthma without complication TAKE ONE TABLET BY MOUTH AT BEDTIME 100 Tablet 3 08/05/2022 08/05/2023 Active OneTouch Delica Plus [id number] USE 2 TIMES A DAY DIRECTED 200 [...] mitral valve clip implantation 03/06 Atherosclerosis of [place] coronary arter y without angina pectoris 02/13/2023 Last Assessment & Plan: Continue statin, sotalol. 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 No-TONAWANDA can hear w/ hearing aid 03/07/2023 Are [...] Progress Notes * Cheri Castillo PA-C - 03/31/2023 10:16 AM EDT Images from the original note were not included. SUBJECTIVE: Inga Barakat is a 82 year old female. Chief Complaint Patient presents with Follow Up Left ear pain Nursing Notes: Massimo Almaraz, ILYA 03/31/23 1014 Signed Chief Complaint Patient presents with Follow Up Left ear pain Inga Barakat is a 82 year old female who presents today with left ear pain. She sates that she has been having recurrent ear infections in her right era and was supposed to get a tube in her rightear. She is now having left ear pain as well. She has bilateral hearing loss and uses hearing aids in both ears. HPI: Patient presents for return appointment due to recent left otalgia. She has been followed for right eustachian tube dysfunction and previous appointment was to contact the office if she wishes to pursue with right tube placement in the office. No recent right otalgia. She continues with right decreased hearing. 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.20 Meniere's disease H81.09 Paroxysmal atrial fibrillation ([facility]) I48.0 Obstructive sleep apnea of adult G47.33 Tremor R25.1 Iron deficiency anemia D50.9 Angiodysplasia of colon with hemorrhage K55.21 Acquired renal cyst N28.1 Controlled substance agreement signed Z79.899 Type 2 diabetes mellitus with polyneuropathy ([facility]) E11.42 Secondary hyperparathyroidism, renal ([facility]) N25.81 Pulmonary hypertension ([facility]) I27.20 Current moderate episode of major depressive disorder without prior episode ([facility]) F32.1 Moderate persistent asthma without complication J45.40 Gastro-esophageal reflux disease without esophagitis K21.9 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 ([facility]) E11.319 Pure hypercholesterolemia E78.00 Aneurysm of left carotid artery ([facility]) I72.0 Aortic atherosclerosis ([facility]) I70.0 Chronic kidney disease, stage 3b ([facility]) N18.32 PVD (peripheral vascular disease) ([facility]) I73.9 Chronic diastolic CHF (congestive heart failure) ([facility]) I50.32 Type 2 diabetes mellitus with stage 3b chronic kidney disease, without long- term current use ofinsulin ([facility]) E11.22, N18.32 Cardiac pacemaker in situ Z95.0 History of endometrial cancer Z85.42 Normocytic anemia D64.9 Primary osteoarthritis of right knee M17.11 Severe tricuspid regurgitation I07.1 History of TIA (transient ischemic attack) Z86.73 Atherosclerosis of [place] coronary artery without angina pectoris I25.10 S/P mitral valve clip implantation Z98.890, Z95.818 Current Outpatient Medications Medication Sig Dispense Refill [employer] w/Device Kit Use up to 1 times [...] in the evening. 60 Tablet 5 Ipratropium Cromwell 0.03 % Nasal Solution Administer 2 Sprays [...] TAKE ONE TABLET BY MOUTH EVERY DAY [id number] Tablet 1 Montelukast Sodium 10 MG Oral Tablet (Singulair) TAKE ONE TABLET BY MOUTH AT BEDTIME 100 Tablet3 OneTouch Delica Plus [id number] USE 2 TIMES A DAY DIRECTED 200 [...] mouth daily with breakfast. 100 Tablet 1 Current Facility-Administered Medications Medication Dose Route Frequency [...] Other (Please comment) QTC prolongation at [facility] Nickel Swelling Other reaction(s): Unknown REVIEW OF SYSTEMS Negative for constitutional, heart, lung, liver, kidney, digestive, hematologic, neurologic, rheumatologic, or endocrine complaints except as per history of present illness and past medical history. OBJECTIVE: Temp 36 C (96.8 F) (Tympanic) | Ht 1.651 m (5' 5") | Wt 69.8 kg (153 lb 14.4 oz) | BMI 25.61 kg/m | BSA 1.79 m PHYSICAL EXAM: General: alert, healthy and no distress Ears: Examination of the ears revealed that the auricles were normally formed with no lesions. The external auditory canals were cleaned of any obstructing cerumen. Left TM was intact with no effusion or significant retraction. Right tympanic intact with effusion ASSESSMENT/PLAN: Encounter Diagnoses Name Primary? Eustachian tube dysfunction, bilateral Yes Chronic DARRON (middle ear effusion), right Plan:Findings and problems reviewed with patient. Discussed that left ear is healthy. She continueswith right middle ear effusion. She is interested in tube placement. This will be scheduled at nextavailable procedure appointment with Dr. Leia Castillo PA-C 03/31/2023 11:10 AM documented in this encounter Nursing Notes * Massimo Almaraz CMA - 03/31/2023 10:10 AM EDT Chief Complaint Patient presents with Follow Up Left ear pain Inga Barakat is a 82 year old female who presents today with left ear pain. She sates that she has been having recurrent ear infections in her right era and was supposed to get a tube in her rightear. She is now having left ear pain as well. She has bilateral hearing loss and uses hearing aids in both ears. documented in this encounter Plan of Treatment Upcoming Encounters Date Type Specialty Care Team Description 04/01/2023 Office Visit Family Medicine Florentin Calvo DO [address] [place] [address] 04/01/2023 Office Visit Orthopedics Juvenal Carvalho DO [address] [facility] [place] [address] 04/02/2023 Office Visit Vascular Surgery Stephen Wright PA-C [address] [place], [place] [id number] 04/07/2023 Office Visit Gastroenterology Janine Cunningham CRNP [address] [place] [facility] [place] [address] 04/07/2023 Laboratory Laboratory Dominick Middleton [address] [facility] [place] [address] 04/07/2023 Office Visit Cardiology Emelina Aden CRNP [address] [place] [facility] [place] [address] 04/10/2023 [facility] Mónica Angeles RN [address] [place] [address] 04/11/2023 Office Visit Hematology Oncology Nereyda Metz CRNP [address] [place] [address] 04/16/2023 Office Visit Cardiology Wilbur Rivera MD [address] [place] [address] 04/23/2023 Office Visit Otolaryngology Blair Dupree DO [address] [place] [address] 05/09/2023 Office Visit Nephrology Rosario Green MD [address] [place] [address] 05/14/2023 Cardiac Studies Cardiac Studies 05/22/2023 Office Visit Ophthalmology Wilbur Benavides DO [address] [place] [address] 05/23/2023 Office Visit Family Medicine Florentin Calvo, [address] [place] [address] 06/17/2023 Office Visit Cardiology Stephen Hewitt, DO [address] [place] [address] 10/24/2023 Office Visit Gynecology Oncology Chris Peng PA-C [address] [place] [address] Health Maintenance Due Date Last Done Comments DIABETES-EYE EXAM 04/11/2023 04/11/2022, , 04/11/2022, Additional history exists Influenza Vaccine (FLU shot) (#1) 2023 05/15/2022, 05/22/2021, 04/19/2020, Additional history exists CKD PHOS USE SMARTSET 64970 05/01/2023 09/0 02/2022, 04/03/2022, 12/05/2020, Additional history exists HbA1c 08/23/2023 02/21/2023, 01/0 10/2022, 04/03/2022, Additional history exists GFR 09/14/2023 03/14/2023, 02/22, 03/06/2023, Additional history exists TSH 09/24/2023 09/24/2022, 01/0 10/2022, 02/12/2022, Additional history exists DIABETES-FOOT EXAM 10/01/2023 10/01/2022, 0 10/26/2021, 12/05/2020, Additional history exists Albumin/Creatinine Ratio 02/22/2024 023, 05/01/2022, 10/26/2021, Additional history exists CKD HGB USE SMARTSET 27143 03/14/202403/14, 03/14/2023, 03/07/2023, Additional history exists Depression [...] this encounter Medical Devices Implanted Type Area Overhead Distribution Engineer Device Identifier Shelf Expiration Date Model / Serial / Lot Cath Thermodilution 6fr - [id number] Implanted:Qty: 1 on 01/24/2023 by Wilbur Rivera MD at [facility] [employer] [id number] 10/15/2024 [id number] / / [id number] Mirtaclip G4 - [id number] Implanted:Qty: 1 on 03/10/2023 at [facility] [employer] 11/19/2023 [id number] / / [id number] documented as of this encounter Visit Diagnoses Diagnosis Eustachian tube dysfunction, bilateral- Primary Chronic DARRON (middle ear effusion), right documented in this encounter Advance Directives Documents on File Type Date Recorded 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 p Communication Bright Barakat Adult Child Health Care Agen t (per Health Care Power of Bottle Inspector document) Care Teams Auto Phone Installer Relationship Specialty Start Date End Date Florentin Calvo, [address] [place] [facility] [place] [address] PCP - General Internal Medicine 03/24/13 documented as of this encounter
--- OUTSIDE RECORDS SUMMARY | 2023-08-14 23:42 | External Medical Summary | Summary of Care ---
Author Name Unknown Organization [facility] Address [address] [place] [address] Phone [phone] Care Team Providers Care Supervisor Drying And Softening Name Role Phone Florentin Calvo DO Primary Care Provider [phone] Reason for Visit * Auth/Cert Specialty Diagnoses / Procedures Referred By Contac t Referred To Contact Diagnoses Mitral valve regurgitation Mitral valve regurgitation [I34.0] Procedures TRANSCATH REPAIR MITRAL VALVE, INITIAL TRANSCATHETER MITRAL VALVE REPAIR Referral ID Status Reason Start Date Expiration Date Visits Re quested Visits Authorized [id number] Encounter Details Date Type Department Care Team Description 03/07/2023 Hospital Encounter Cardiac Studies [facility] [address] [place] [address] Allergies Active Allergy Reactions Severity Noted Date [...] as of this encounter (statuses as of 03/08/2023) Medications Medication Sig Dispensed Refills Start Date End Date Status ferrous sulfate (FEOSOL) 325 (65 FE) MG Tablet Take 1 Tab by mouth 2 times a day. 180 Tab 1 0 Active OneTouch Verio w/Device KitIndications:Ty pe 2 [...] 0 2 Active Vitamin D3 50 MCG (2000 UT) Oral CapsuleIndication s:Vitamin D deficiency Take 2 Capsules by mouth in the morning. 60 Capsule 5 2 Active Levalbuterol Tartrate 45 MCG/ACT Inhalation Aerosol (Xopenex HFA)Indications:A sthma with severity to be determined Inhale by mouth 1 Puff every 4 hours as needed for Wheezing. 15 g 12 2 Active Allopurinol 100 MG Oral Tablet (Zyloprim)Indicat ions:Gout, arthropathy Take 2 Tablets by mouth at bedtime. 60 Tablet 11 3 Active Fluticasone-Salme terol 250-50 MCG/ACT Inhalation Aerosol Powder Breath Activated (Advair Diskus) Inhale 1 Puff by mouth in the morning and 1 Puff before bedtime. 60 Each 2 3 Active OneTouch Verio In Vitro Strip (Glucose Blood) Test blood sugars up to 2 times a day E11.9 200 Strip 3 3 Active Pantoprazole Sodium 40 MG Oral Tablet Delayed Release (Protonix) Take 1 Tablet by mouth in the morning and 1 Tablet in the evening. 60 Tablet 5 3 Active Ipratropium [place] 0.03 % Nasal Solution Administer 2 Sprays into nostril in the morning and 2 Sprays before bedtime. 0 Active Vitamin B-12 100 MCG Oral Tablet (vitamin B-12) Take 1 Tablet by mouth in the morning. 30 Tablet 3 3 Active Folic Acid 1 MG Oral TabletIndications :Chronic atrial fibrillation (HCC) TAKE ONE TABLET BY MOUTH EVERY MORNING 100 Tablet 1 3 02/03/20 24 Active Levothyroxine Sodium 125 MCG Oral Tablet (Levoxyl) TAKE ONE TABLET BY MOUTH FIRST THING IN THE MORNING 100 Tablet 1 3 01/31/20 24 Active ALPRAZolam 0.5 MG Oral Tablet (xaNAX)Indication s:Persistent insomnia,Anxiety TAKE ONE TABLET BY MOUTH AT BEDTIME NEEDED FOR SLEEP OR ANXIETY USES HALF OF A TABLET NEEDED FOR ANXIETY AND SLEEP 90 Tablet 0 3 07/20/20 23 Active Atorvastatin Calcium 20 MG Oral Tablet (Lipitor)Indicati ons:PVD (peripheral vascular disease) ([facility]),Type 2 diabetes mellitus with stage 3a chronic kidney disease and hypertension (HCC) TAKE ONE TABLET BY MOUTH EVERY DAY DIRECTED 100 Tablet 1 2 08/20/20 23 Active Montelukast Sodium 10 MG Oral Tablet (Singulair)Indica tions:Moderate persistent asthma without complication TAKE ONE TABLET BY MOUTH AT BEDTIME 100 Tablet 3 2 08/05/20 23 Active OneTouch Delica Plus [id number] USE 2 TIMES A DAY DIRECTED 200 Each 3 2 04/30/20 23 Active Sotalol HCl 80 MG Oral Tablet (Betapace)Indicat ions:Chronic atrial fibrillation (HCC) TAKE ONE-HALF TABLET BY MOUTH EVERY DAY IN THE MORNING AND 1/2 TABLET BEFORE BEDTIME. 90 Tablet 3 2 04/03/20 23 Active Sertraline HCl 50 MG Oral Tablet (Zoloft)Indicatio ns:Current moderate episode of major depressive disorder without prior episode (HCC) Take 3 Tablets by mouth in the morning. 100 Tablet 3 3 Active Polyethylene Glycol 3350 17 GM Oral Packet Take 1 Packet by mouth daily as needed for Constipation. 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 Has required multiple transfusions. 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 We discussed with Cardiology. Shortness of breath 07/26/2022 11/18/2022 Last Assessment [...] as of this encounter (statuses as of 03/08/2023) Immunizations Name Administration Dates Next Due COVID-19 [...] got money to buy more. Never true 02/18/2023 Within the past 12 months, t he food you bought just didn't last and you didn't have money to get more. Never true 02/18/2023 Sex Assigned at Date Recorded Female 12/17/2018 11:06 AM EDT Job Start Date Occupation Industry Not on file Not on file Not on file documented as of this encounter Functional Status Functional Status Response Date of Assess ment Are you deaf or do you have serious difficulty hearing? No-[place] can hear w/ hearing aid 03/07/2023 Are [...] Encounters Date Type Specialty Care Team Description 03/10/2023 Home Visit [facility] Karlene Zepeda RN [address] [place] [address] 03/14/2023 Office Visit Cardiology Pilar Atkinson CRNP [address] [place] [address] 03/17/2023 Office Visit Cardiology Stephen Hewitt DO [address] [place] [address] 03/19/2023 Imaging Radiology 04/02/2023 Office Visit Vascular Surgery Stephen Wright PA-C [address] [place] [address] 04/07/2023 Office Visit Gastroenterology Janine Cunningham CRNP [address] [place] [address] 04/07/2023 Laboratory [facility] [place], [facility] [address] [place] [address] 04/07/2023 Office Visit Cardiology Emelina Aden CRNP [address] [place] [address] 04/11/2023 Office Visit Hematology Oncology Nereyda Metz CRNP [address] [place], [place] [id number] 04/16/2023 Office Visit Cardiology Wilbur Rivera MD [address] [place] [address] 05/09/2023 Office Visit Nephrology GreenRosario alcantar MD [address] [place] [address] 05/14/2023 Cardiac Studies Cardiac Studies 05/22/2023 Office Visit Ophthalmology Wilbur Benavides DO [address] [place] [address] 05/23/2023 Office Visit Family Medicine Florentin Calvo DO [address] [place] [address] 10/24/2023 Office Visit Gynecology Oncology Chris Peng PA-C [address] [place] [address] Health Maintenance Due Date Last Done Comments DIABETES-EYE EXAM 04/11/2023 04/11/2022, , 04/11/2022, Additional history exists Influenza Vaccine (FLU shot) (#1) 2023 05/15/2022, 05/22/2021, 04/19/2020, Additional history exists CKD PHOS USE SMARTSET 66069 05/01/2023 09/0 02/2022, 04/03/2022, 12/05/2020, Additional history exists HbA1c 08/23/2023 02/21/2023, 01/0 10/2022, 04/03/2022, Additional history exists GFR 09/07/2023 03/07/2023, 02/22, 03/04/2023, Additional history exists TSH 09/24/2023 09/24/2022, 01/0 10/2022, 02/12/2022, Additional history exists DIABETES-FOOT EXAM 10/01/2023 10/01/2022, 0 10/26/2021, 12/05/2020, Additional history exists Depression Screening, Annual for Pts 12 and Over 02/19/2024 02/18/2023 Albumin/Creatinine Ratio 02/22/2024 023, 05/01/2022, 10/26/2021, Additional history exists CKD HGB USE SMARTSET 53985 03/07/202403/07, 03/06/2023, 03/04/2023, Additional history exists DXA Scan 05/07/2025 05/07/2021, [...] this encounter Medical Devices Implanted Type Area Filter Machine Operator Device Identifier Shelf Expiration Date Model / Serial / Lot Cath Thermodilution 6fr - [id number] Implanted:Qty: 1 on 01/24/2023 by Wilbur Rivera [place] at [facility] [employer] TERE [id number] 10/15/2024 [id number] / / [id number] documented as of this encounter Procedures Procedure Name Priority Date/Time Associated Diagnosis Comments ECHO, COMPLETE (2D), TRANS-THORACIC Routine 03/07/2023 8:55 AM EDT S/P TAVR (transcatheter aortic valve replacement) documented in this encounter Visit Diagnoses Diagnosis S/P mitral valve clip implantation- Primary Chronic diastolic CHF (congestive heart failure) (HCC) Chronic diastolic heart failure Severe mitral valve regurgitation Atherosclerosis of [place] coronary artery of [place] heart without angina pectoris Cardiac pacemaker in situ documented in this encounter Administered Medications Inactive Administered Medications - up to 3 most recent administrations Medication Order MAR Action Action Date Dose Rate Site perflutren lipid microsphere inj SUSP 1.956 mg 1.956 mg, Intravenous, ONCE PRN Other, For Echo Only - Suboptimal Echo Images, Starting on Fri03/07/23 at 0856, Until Fri03/07/23 at 1055, For 2 hours, Administer IVP over 45 seconds, Cardiac Studies_HODHOV Given 03/07/2023 8:57 AM EDT 1.956 mg documented in this encounter Advance Directives Documents on File Type Date Recorded Patient Suit Attendant Expl anation Advance Directives and Living Will 11/29/2022 ADVANCE DIRECTIVE / LIVING WILL Power of Weight And Balance Control Agent 11/29/2022 POWER OF A TTORNEY Advance Directives and Living Will 10/24/2014 ADVANCE DIRECTIVE / LIVING WILL Power of Weight And Balance Control Agent 10/24/2014 POWER OF A TTORNEY Latest [...] Agents on File Name Relationship Healthcare Agent [facility] Communication [facility] Adult Child Health Care Agen t (per Health Care Power of Weight And Balance Control Agent document) Care Teams Supervisor Drying And Softening Relationship Specialty Start Date End Date Florentin Calvo, DO [address] [facility] [place] [address] PCP - General Internal Medicine 03/24/13 documented as of this encounter
--- OUTSIDE RECORDS SUMMARY | 2023-08-14 23:42 | External Medical Summary | Summary of Care ---
Author Name Unknown Organization [facility] Address [address] [place] [address] Phone [phone] Care Team Providers Care Embedded Processor Name Role Phone Florentin Calvo DO Primary Care Provider [phone] Reason for Visit * Reason Onset Date Comments Appointment 03/10/2023 Hosp f/u Encounter Details Date Type Department Care Team Description 03/10/2023 Telephone Family Practice [facility] [address] [place] [address] Florentin Calvo DO [address] [place] [address] Appointment (Hosp f/u) Allergies Active Allergy Reactions Severity Noted Date Comments Azithromycin Other (Please comment) 12/04/2021 QTC prolongation at [facility] Celecoxib Hives,Rash High 03/24/2013 Other [...] as of this encounter (statuses as of 03/10/2023) Medications Medication Sig Dispensed Refills Start Date [...] evening. 60 Tablet 5 01/02/2023 Active Ipratropium Boring 0.03 % Nasal Solution Administer 2 Sprays [...] 3 08/05/2022 08/05/2023 Active OneTouch Delica Plus [id number] USE 2 TIMES A DAY DIRECTED 200 Each 3 04/30/2022 04/30/2023 Active Sotalol HCl 80 MG Oral Tablet (Betapace)Indicatio ns:Chronic atrial fibrillation (HCC) TAKE ONE-HALF TABLET BY MOUTH EVERY DAY IN THE MORNING AND 1/2 TABLET BEFORE BEDTIME. 90 Tablet 3 04/03/2022 04/03/2023 Active Sertraline HCl 50 MG Oral Tablet (Zoloft)Indications :Current moderate episode of major depressive disorder without prior episode (HCC) Take 3 Tablets by mouth in the morning. 100 Tablet 3 03/03/2023 Active Torsemide 40 MG Oral TabletIndications:C hronic diastolic heart failure due to valvular disease (HCC) Take 40 mg by mouth in the morning. 30 Tablet 2 03/07/2023 Active Hospital, Clinic, or Other Facility Administered [...] as of this encounter (statuses as of 03/10/2023) Active Problems Problem Noted Date S/P mitral valve clip implantation 03/06 Atherosclerosis of [place] coronary arter y without angina pectoris 02/13/2023 Last Assessment & Plan: Continue statin, sotalol. 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 No-[place] can hear w/ hearing aid 03/07/2023 Are [...] Miscellaneous Notes * Telephone Encounter - RADHA Cohen - 03/10/2023 9:05 AM EDT Please disregard message. Appt opened for this Friday at 1020. Pts sister accepted this appt. * Telephone Encounter - RADHA oChen - 03/10/2023 8:16 AM EDT Pts daughter, Kathy, calling for a hospital discharge appt. I gave her Friday at 4:20 pm, However I thought it was this Friday, however; its April 04. Please advise date/time of add on or if we can add on at the time/date I provided of 7.21.23 at 420. documented in this encounter Plan of Treatment Upcoming Encounters Date Type Specialty Care Team Description 03/10/2023 Home Visit [facility] Karlene Zepeda, AISHA [address] [place] [address] 03/14/2023 Office Visit Family Medicine Florentin Calvo DO [address] [facility] [place] [address] 03/14/2023 Office Visit Cardiology Pilar Atkinson CRNP [address] [place] [id number] 03/17/2023 Office Visit Cardiology Stephen Hewitt DO [address] [place] [address] 03/19/2023 Imaging Radiology 04/02/2023 Office Visit Vascular Surgery Stephen Wright PA-C [address] [place] [address] 04/07/2023 Office Visit Gastroenterology Janine Cunningham CRNP [address] [place] [address] 04/07/2023 Laboratory [facility] [place], Dominick Chavez [address] [place] [address] 04/07/2023 Office Visit Cardiology Emelina Aden CRNP [address] [place] [address] 04/11/2023 Office Visit Hematology Oncology Nereyda Metz CRNP [address] [place] [address] 04/16/2023 Office Visit Cardiology Wilbur Rivera MD [address] [place], [place] [phone] 05/09/2023 Office Visit Nephrology Rosario Green MD [address] [place] [address] 05/14/2023 Cardiac Studies Cardiac Studies 05/22/2023 Office Visit Ophthalmology Wilbur Benavides DO [address] [place] [address] 05/23/2023 Office Visit Family Medicine Florentin Calvo DO [address] [place] [address] 10/24/2023 Office Visit Gynecology Oncology Chris Peng PA-C [address] [facility] [place] [address] Health Maintenance Due Date Last Done Comments DIABETES-EYE EXAM 04/11/2023 04/11/2022, , 04/11/2022, Additional history exists Influenza Vaccine (FLU shot) (#1) 2023 05/15/2022, 05/22/2021, 04/19/2020, Additional history exists CKD PHOS USE SMARTSET 34191 05/01/2023 09/0 02/2022, 04/03/2022, 12/05/2020, Additional history [...] Additional history exists CKD HGB USE SMARTSET 41886 03/07/202403/07, 03/06/2023, 03/04/2023, Additional history exists DXA [...] this encounter Medical Devices Implanted Type Area Tariff Compiler Device Identifier Shelf Expiration Date Model / Serial / Lot Cath Thermodilution 6fr - [id number] Implanted:Qty: 1 on 01/24/2023 by Wilbur Rivera MD at [facility] [place] [facility] [employer] [id number] 10/15/2024 [id number] / / [id number] documented as of this encounter Advance Directives Documents on File Type Date Recorded Patient Lapping Machine Set Up Operator Expl anation Advance Directives and Living Will 11/29/2022 ADVANCE DIRECTIVE / LIVING WILL Power of Boat Garnisher 11/29/2022 POWER OF A TTORNEY Advance Directives and Living Will 10/24/2014 ADVANCE DIRECTIVE / LIVING WILL Power of Boat Garnisher 10/24/2014 POWER OF A TTORNEY Latest Code [...] Agen t (per Health Care Power of Boat Garnisher document) Care Teams Embedded Processor Relationship Specialty Start Date End Date Florentin Calvo, [address] [facility] [place] [address] PCP - General Internal Medicine 03/24/13 documented as of this encounter
--- OUTSIDE RECORDS SUMMARY | 2023-08-14 23:42 | External Medical Summary ---
Author Name Unknown Address Unknown Organization K01:[facility] - [address] [facility] [address] Laboratory Report Ordering Provider Test Date Status GREYANTONIO 03/14/2023 10:53:05 Final Observation Date Value Abnormality Reference (Units ) Status Iron 03/14/2023 10:53:05 56 33-151 (ug /dL) Final Iron-binding capacity 03/14/2023 10:53:05 321 250-425 (ug/dL) Final Transferrin Sat % 03/14/2023 10:53:05 17 15 -55 (%) Final Performing Location LABORATORY C - [address] [facility] [address]
--- OUTSIDE RECORDS SUMMARY | 2023-08-14 23:42 | External Medical Summary | Summary of Care ---
Author Name Unknown Organization [facility] Address [address] [place] [address] Phone [phone] Care Team Providers Care Regional Sales Consultant Name Role Phone Florentin Calvo DO Primary Care Provider [phone] Reason for Visit * Auth/Cert Specialty Diagnoses / Procedures Referred By Contac t Referred To Contact Diagnoses Mitral valve regurgitation Mitral valve regurgitation [I34.0] Procedures TRANSCATH REPAIR MITRAL VALVE, INITIAL TRANSCATHETER MITRAL VALVE REPAIR Referral ID Status Reason Start Date Expiration Date Visits Re quested Visits Authorized [id number] Encounter Details Date Type Department Care Team Description 03/06/2023 - 03/07/2023 Hospital Encounter [facility] 8, [facility] 8th [address] [place] [address] Wilbur Rivera MD [address], [place] [id number] Avis Dueñas MD [address] [place] [address] Massimo Peralta MD [address] [place] [address] EKG Report Allergies Active Allergy Reactions Severity Noted Date [...] evening. 60 Tablet 5 3 Active Ipratropium [place] 0.03 % Nasal Solution Administer 2 Sprays [...] Oral Tablet (Lipitor)Indicati ons:PVD (peripheral vascular disease) ([facility] [...] 2 08/05/20 23 Active OneTouch Delica Plus [id number] USE 2 TIMES A DAY DIRECTED 200 Each 3 2 04/30/20 23 Active Sotalol HCl 80 MG Oral Tablet (Betapace)Indicat ions:Chronic atrial fibrillation (HCC) TAKE ONE-HALF TABLET BY MOUTH EVERY DAY IN THE MORNING AND 1/2 TABLET BEFORE BEDTIME. 90 Tablet 3 2 04/03/20 23 Active Sertraline HCl 50 MG Oral Tablet (Zoloft)Indicatio ns:Current moderate episode of major depressive disorder without prior episode ([facility]) Take 3 Tablets by mouth in the morning. 100 Tablet 3 3 Active Torsemide 40 MG Oral TabletIndications :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) Take 40 mg by mouth in the morning. 30 Tablet 2 3 Active Polyethylene Glycol 3350 17 GM [...] clip implantation 03/06 Atherosclerosis of [place] coronary arter y without angina pectoris 02/13/2023 [...] Secondary hyperparathyroidism, renal Controlled substance agreement signed 04 /11/2016 Acquired renal cyst 06/12/2016 Iron deficiency anemia 04/24/2016 Angiodysplasia of colon with hemorrhage 04/24/2016 Tremor 09/21/2015 Paroxysmal atrial fibrillation 5 Last Assessment & Plan: Rate controlled. 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 Last Assessment & Plan: Now just [...] Sign Reading Time Taken Comments Blood Pressure 98/51 03/07/2023 12:10 PM EDT Pulse 73 03/07/2023 2:50 PM EDT Temperature 36.1 C (97 F) 03/07/2023 11:20 AM EDT Respiratory Rate 24 03/07/2023 2:50 PM EDT Oxygen Saturation 93% 03/07/2023 12:05 PM EDT Inhaled Oxygen Concentration - - Weight 73.5 kg (162 lb) 03/06/2023 6:37 AM EDT Height 165.1 cm (5' 5") 03/06/2023 6:37 AM EDT Body Mass Index 26.96 03/06/2023 6:37 AM EDT documented in this encounter Functional Status Functional Status Response Date of Assess ment Are you deaf or do you have serious difficulty hearing? No[place] can hear w/ hearing aid 03/07/2023 Are [...] Discharge Instructions * Discharge Instr - AVS* Maribel Milligan, DO - 03/07/2023 2:48 PM EDT Discharge Date: 03/07/2023 If you have chest pain or uncontrollable bleeding from a catheter site, please call 911 immediately. For other questions or concerns, please call [phone] between 8:00 A.M and 5:00 P.M., Friday through Friday. If after 5:00 P.M., or on the weekend or holidays, please call [phone]. The information below provides you with the instructions and the list of medications you need to betaking following discharge from the hospital. If you have any questions, please ask before leaving.Please carry this letter with you when you see your doctor in the clinic. If you have questions, you can reach us at the numbers above. Brief summary of your inpatient care: You came to the hospital for an elective procedure to addressyour severe heart valve dysfunction in the setting of recent worsening shortness of breath. You hadtwo mitral clips placed in your mitral valve. You had a stitch placed in your right groin which wasremoved the next day. You tolerated the procedure well, and were observed overnight without any complications. You were discharged home in stable condition with instructions to follow up closely withCardiology. Your doctors during this hospitalization included: Dr. Herbert Rivera, Dr. Avis Dueñas, and Dr. Massimo Peralta Please call your primary care physician (Florentin Calvo DO) for an appointment within 7 day(s). You will follow up closely with cardiology. Your first appointment is 03/14/2023. Special Instructions: Diet: Heart healthy diet Activity * The following activities are restricted until you are seen in clinic for you post procedure check(approximately 1 week). o Do not drive o Do not lift anything heavier than 10 pounds o No heavy chores (housekeeping, lawn/yard care, etc.) * There is no restriction on climbing stairs. Climb them at a comfortable pace. * Get up in the morning and dress in your regular, every day clothes. * Gradually get back into your daily routine. Ordinary activities such as dressing, showering and grooming may make you tired during your first days at home. Spread your activities out over the day and take frequent rest periods. * The more you are up and about the quicker you will be able to resume your daily activities. o Look for opportunities to move around and try to increase your activity level by small amounts every day. o Concentrate initially on increasing the amount of time you are doing an activity (not how fast you do the activity). o Start with short walks several times a day and progress as you are able. * During hot and humid weather, walk indoors or during the coolest part of the day (bag machine adjuster, late evening). * During cold weather, walk indoors or during the warmest part of the day (afternoons). * Sit up in a chair as often as possible. * Support stockings o These stockings are used to prevent postoperative leg swelling and blood clots. o Put on clean stockings in the morning and remove them at night. o When putting them back on, get all the wrinkles out. o Wear the stockings until your ankles and legs are no longer swollen. * Consider a cardiac rehabilitation program. o This program combines modern equipment and techniques with individual counseling and instructionsby exercise physiologists and nurses. o Cardiac rehabilitation generally starts about one month after going home. o If you have not heard about or been contacted by a cardiac rehabilitation program after going home, please contact your heart team or discuss with your provider at your one-month office post procedure office visit. Procedure Site * Normal occurrences at procedure sites: o Soreness o Small amount of drainage o Bruising that extends several inches around the site o One or two small lumps (about the size of a marble) at the site o Usually any discomfort or swelling at the site will gradually return to normal over the next month * A small bandage or Band-Aid will be placed over the area where the catheter(s) have been removed. o The dressing should be removed the day after discharge. o It is important to keep the area clean and dry o You may shower the day after your procedure. o Wash with soap and water, pat the incision dry. o Avoid lotions or creams at incision site. o Leave the area open to air. o Apply a Band-Aid if there is some drainage or oozing. o Avoid tub baths for 5-7 days. * It is important to check the site for signs of infection or complications o If you are unable to see the site, have someone look at it for you. o Signs of infection include: drainage (pus), fever and/or chills. o Some soreness at the site is normal. Tylenol may be taken for this soreness unless otherwise instructed by your physician. o If you think that the site may be infected, notify your physician. o If you have severe pain at the procedure site, a throbbing lump under the skin, numbness, loss offeeling or change in color of the extremity below the procedure site, notify your physician. o You may notice a drop or two of blood on the dressing, this is generally not a problem. If more significant bleeding occurs, put pressure on the site with your hand and seek medical attention immediately. o If a large lump is felt, if you have increased pain at the site, or if the bruise and/or lump areincreasing in size, notify your physician. o Extensive bleeding at the procedure site or a lump which is expanding quickly is an emergency. Call 911 for an ambulance to take you to the nearest emergency room. Lie down then apply firm pressuredirectly over the site, holding pressure until emergency personnel have arrived. Medications * Your medications and/or dose of prior medications may change when you are discharged. * Pay special attention to the medication section of your discharge instructions and make sure you make the appropriate changes to your home regimen. Follow Up * Be sure to come in for all scheduled follow up visits. * You will be seen in valve clinic: o One week post procedure o One month post procedure with an echocardiogram o Six months post procedure o One year post procedure with an echocardiogram o Yearly thereafter with echocardiograms * You should continue to have regular follow up with your Primary Care Provider o Schedule an appointment 1-2 weeks after discharge * You should have regular follow up with your primary metal shaping machine operator who will continue to manage yourregular cardiac care. o Schedule an appointment approximately 3 months after discharge. Cardiovascular RISK FACTOR control Do not smoke or use tobacco products in any way! YOUR RISK FACTOR TREATMENT GOALS: Controlling the factors that cause arteries to form blockages will reduce your chance of having new blockages. Work with your health care providers to control your risk factors. If you have trouble reaching these goals then ask your health care provider to work with you further until they are controlled. Diabetes - In diabetics, hemoglobin A1C is a measure of the average blood sugar over the past 3 months. The goal is less than 7.0. Your result is: 6.5% Hypertension - Goal is less than 120/80. Your blood pressure is 98/51 High cholesterol LDL cholesterol (bad cholesterol) - goal is less than 70 mg/dl. HDL cholesterol (good cholesterol) - goal is greater than 40 mg/dl in men and 50 mg/dl in women. Triglycerides (other blood fats that are especially elevated in diabetics and pre-diabetics) - goal is less than 150 mg/dl. Your Lipid Panel Results are: Results for orders placed or performed in visit on 02/21/23 LIPID PANEL WITH DIRECT LDL IF TG IS HIGH Result Value Ref Range Triglycerides 89 <=174 mg/dL Cholesterol 99 <200 mg/dL HDL Cholesterol 49 (L) >49 mg/dL Non-HDL Cholesterol 50 <=159 mg/dL LDL Cholesterol 32 <=129 mg/dL Tobacco - Tobacco is poison to your arteries. It will cause blockages. Continuing to smoke tobacco may lead to heart attacks, strokes, or leg amputation. You should avoid tobacco. Your goal is to notsmoke at all. Talk with your primary care provider about counseling and medications to help you stop smoking. Exercise - The [place] [employer] recommends walking 30 minutes a day most days of the week; if you have to lose weight you should walk 60-90 minutes a day. Remember that if you develop chestpain, you should stop what you are doing. Do not continue to exercise if you have chest pain. See your special activity instructions above. [place] weight - Your BMI (a measure of ideal body weight) is Body mass index is 26.96 kg/m.. Your BMI should be less than 25. Your waist size also predicts risk of heart attack: a woman's waist should be less than 35 inches and a man's waist less than 40. Maintaining your ideal body weight will help your heart, reduce blood pressure, blood sugar, and cholesterol, improve or help prevent diabetes, and improve or help prevent congestive heart failure. 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 Subjective: Patient seen and examined at bedside. Patient reports no active complaints. All systems were reviewed, all pertinent findings were documented above, otherwise negative. Objective CONSTITUTIONAL DATA / OBJECTIVE: Vital Signs (Most Recent): Blood Pressure: 126/50 mmHg Last 12H: Most Recent Systolic BP Av.5 mmHg Min: 103 mmHg Max: 126 mmHg Pulse: 61 Last 12H: Pulse Av.2 Min: 55 Max: 63 Temperature: 35.2 C (95.4 F) (warm blankets) Last 12H: Most Recent Temperature Av.8 C Min: 35.22 C Max: 36.28 C Respiratory Rate: 18 O2 Saturation: 95 % Vital Signs (Last 24 Hours): Pulse Av.2 Min: 55 Max: 63 No data recorded Most Recent Systolic BP Av.5 mmHg Min: 103 mmHg Max: 126 mmHg Most Recent Diastolic BP Av.2 mmHg Min: 47 mmHg Max: 57 mmHg Resp Av.6 Min: 12 Max: 20 Most Recent Temperature Av.8 C Min: 35.22 C Max: 36.28 C SpO2 Av.7 % Min: 95 % Max: 100 % Intake & Output Summary (Last 24 hours): Intake/Output Summary (Last 24 hours) at 03/06/20231611 Last data filed at 03/06/2023 1434 Gross per 24 hour Intake 1050 ml Output 2200 ml Net -1150 ml Net IO Since Admission: -1,150 mL [03/06/231611] Height & Weight: Height: 165.1 cm (5' 5") (03/06/23636) Weight: 73.5 kg (162 lb) (03/06/23636) Weight change: Body mass index is 26.96 kg/m. Physical Examination: General: Patient lying comfortably, in no apparent distress HEENT: normocephalic, atraumatic Heart: regular rate and rhythm; S1 and S2 present; no murmurs, rubs or gallops. Pulmonary: Lungs clear to auscultation bilaterally; no wheezes, rhonchi or crackles. Abdomen: Soft, non-tender, non-distended. Normal bowel sounds and no rebound or guarding. MSK: Patient able to ambulate; Gross motor function intact Extremities: No pitting edema present at lower extremity bilaterally Skin: [place], warm, no wounds or lesions present. Neuro: AAOx3. No gross motor or sensory deficits. Psych: Appropriate mood and affect Port sites seen (right radial, bilateral femoral) no active oozing, no swelling, pain or paresthesia. Urethral Catheter Regular catheter (Active) Number of days: 0 Peripheral Line Lower;Right Antecubital 20 Gauge (Active) Number of days: 0 Laboratory Values: reviewed. -- Brief labs below include the 7 most recent results over the past week. No results in the last 7 days - inpatent use only Lab results within last 7 days (see chart for full results) Units 03/06/23 1130 03/06/23 0910 03/04/23 0912 Sodium mmol/L 139 -- 140 Potassium mmol/L 4.4 -- 4.1 Potassium i-STAT mmol/L -- 3.8 -- Chloride mmol/L 105 -- 101 CO2 mmol/L 23 -- 25 BUN mg/dL 40* -- 45* Creatinine mg/dL 1.5* -- 1.8* Estimated Glomerular Filtration Rate mL/min 35* -- 28* Glucose mg/dL 150* -- 122* Calcium mg/dL 8.9 -- 9.5 Magnesium mg/dL 2.3 -- -- Anion Gap mmol/L 11 -- 14 Lab results within last 7 days (see chart for full results) Units 03/06/23 1130 03/04/23 0912 WBC K/uL 10.94* 8.00 HGB g/dL 9.5* 10.1* HCT % 29.9* 31.0* PLT K/uL 154 182 MCV fL 97.7 93.7 Lab results within last 7 days (see chart for full results) Units 03/06/23 0627 03/04/23 0912 BNP, NT-Pro pg/mL 11,886* 12,222* Lab results within last 7 days (see chart for full results) Units 03/04/23 0912 Prothrombin Time seconds 14.8 INR 1.1 Lab results within last 7 days (see chart for full results) Units 03/04/23 0912 Albumin g/dL 4.2 Protein g/dL 6.7 Bilirubin, Total mg/dL 0.5 Bilirubin, Direct mg/dL <0.2 AST U/L 35 ALT U/L 18 Alkaline Phosphatase U/L 186* No results in the last 7 days - inpatent use only Cultures: reviewed. No results in the last 7 days - inpatent use only Recent Cultures (2 Weeks) No lab values to display. Radiographic Studies: reviewed. XR KNEE 3 VIEWS Result Date: 03/04/2023 IMPRESSION Moderate osteoarthritis right knee XR CHEST 1 VIEW Result Date: 03/06/2023 IMPRESSION Interval mitral clip placement. Hypoventilatory changes with diffuse haziness throughoutthe lungs which may relate to mild edema. Most recent echocardiogram: The qualitative LV ejection fraction is 55-59% (normal). No LV segmental wall motion abnormalities. The left atrium is severely enlarged. Secondary mitral regurgitation is present. moderate to severe, EROA 0.32 cm2, regurgitant volume 52mL at a systemic blood pressure of 90/40 mmHg. Severe secondary tricuspid regurgitation is present Most recent cardiac cath: 01/24/23 Coronary disease - hemodynamically insignificant Mid LAD has 40%stenosis Pro=mid Rca has diffuse upto 50% stenosis Current Facility-Administered Medications: Acetaminophen (Tylenol) tab 650 mg, 650 mg, Oral, Q6H, Selene Servin MD Bumetanide (Bumex) inj 2 mg, 2 mg, IV Push, BID (0900,1600), Selene Servin MD [START ON 03/07/2023] hEParin inj 5,000 Units, 5,000 Units, Subcutaneous, Q8H, Selene Servin MD magnesium sulfate 1 g in d5w 100mL LOCKED DOSE, 1 g, IV Piggyback, PRN, Selene Servin MD NSS infusion, , Intravenous, Continuous, JESS Mancini, Last Rate: 50 mL/hr at 03/06/23 0723, New Bag at 03/06/23 0723 sodium chloride 0.9 % flush peripheral ana 3 mL, 3 mL, IV Push, Q Shift, Selene Servin MD, 3 mL at 03/06/23 1545 traMADol (Ultram) tab 50 mg, 50 mg, Oral, Q12H PRN, Selene Servin MD Assessment & Plan Assessment and Plan: Active Problems: * No active hospital problems. * Resolved Problems: * No resolved hospital problems. 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 Chronic diastolic CHF secondary to valvular insufficiency: Patient developed increasing shortness of breath over the past year, recently exacerbated over the past month. It is present at rest eli while lying down and is worse with exertion (ambulation with assisted walker) of a couple of feet. It is relieved with rescue inhalors 92-3x a day). She uses 2L oxygen at night. She experiences some chest tightness during an active shortness of breath episode. Her symptoms were likely secondary to MVR and TVR. She is now s/p Mitral clip. - resume aspirin - stitch removal in the AM - Echo tomorrow - EKG today and tomorrow - bumex iv 2mg - heart healthy diet - labs in AM - monitor Chronic Problems: Afib s/p pacemaker DM TIA Anemia Hypothyroidism HLD Pulmonary artery HTN Misc: Diet: Heart healthy Bowel Regimen: None Sleep: No sleep protocol ordered PT/OT: not indicated as of yet Code Status: will discuss Anticipated Discharge: 2-3+ days Chaitanya Pelayo MD Patient was discussed with Cardiology attending physician, Avis Dueñas MD Associated attestation - Avis Dueñas MD - 03/06/2023 4:40 PM EDT I saw and evaluated the patient today. I have reviewed the trainee note and agree. * Wilbur Rivera MD - 03/06/2023 4:07 PM EDT Patient seen and examined pre procedure. The patient has been reporting significant increase in shortness of breath . NT pro [place] [address] LAP measured during the procedure was elevated at 28 Consistent with acute on chronic diastolic heart failure. Would treat with intravenous diuretics administered 2 mg IV bumex in the chemical processing laborer.. Wilbur Rivera MD MPH Interventional Cardiology Pager: [phone] 03/06/23 4:08 PM documented in this encounter H&P Notes * JESS Mancini - 03/05/2023 10:50 AM EDT Images from the original note were not included. Cardiology H & P Date: 03/05/23 Referring: Dr. Marcelina Truong 82-year-old female presenting to the valve clinic today as a new patient after being referred by Abigail Goncalves PA-C. Recent echo completed due to progressive dyspnea with exertion showing moderate tosevere MR and TR as well as severe pulmonary hypertension. Patient is presenting for a Mitral Clip on 03/05/23 Past medical history: 1. Chronic diastolic CHF secondary to valvular insufficiency a. Moderate to severe MR and severe TR 2. Severe pulmonary hypertension, also following with Pulmonary 3. History of sick sinus syndrome with recurrent syncope, status post LINQ, now status post dual chamber permanent pacemaker 07/2022 4. Paroxysmal atrial fibrillation, on sotalol. a. [id number] score of 7 (age 2, female, CHF,DM, [...] 13. Hypothyroidism 14. Anemia, receiving iron infusions Pertinent Cardiac Studies RAKESH 01/24/23 The qualitative LV ejection fraction is 55-59% (normal). No LV segmental wall motion abnormalities. The left atrium is severely enlarged. Secondary mitral regurgitation is present. moderate to severe, EROA 0.32 cm2, regurgitant volume 52mL at a systemic blood pressure of 90/40 mmHg. Severe secondary tricuspid regurgitation is present Cardiac Catheterization 01/24/23 Echo 10/21/22 The LV wall thickness is mildly increased [...] artery systolic pressure is 76 mm Hg. 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) Pure hypercholesterolemia 07/02/2021 PVD (peripheral vascular disease) ([facility]) 05/15/2022 Secondary hyperparathyroidism, renal ([facility]) 12/17/2018 Severe mitral valve regurgitation 10/30/2022 [...] (Maternal) Social History Socioeconomic History Marital status: Tobacco Use Smoking status: Former Packs/day: 1.25 Years: 18.00 Pack years: 22.50 Types: Cigarettes Quit date: 12/29/1978 Years since quittin.2 Passive exposure: Past Smokeless tobacco: Never Vaping Use Vaping Use: Never used Substance and Sexual Activity Alcohol use: No Drug use: No Sexual activity: Not Currently Partners: Male control/protection: Surgical Comment: hysterectomy Social Determinants of Health Food Insecurity: No Food Insecurity Worried About Running Out of Food in the Last Year: Never true Ran Out of Food in the Last Year: Never true Review of patient's allergies indicates: Allergen Reactions [...] [facility] Nickel Swelling Other reaction(s): Unknown Prior to Admission medications Medication Sig Last Dose Discont. Sertraline HCl 50 MG Oral Tablet (Zoloft) Take 3 Tablets by mouth in the morning. ALPRAZolam 0.5 MG Oral Tablet (xaNAX) TAKE ONE TABLET BY MOUTH AT BEDTIME NEEDED FOR SLEEP OR ANXIETY USES HALF OF A TABLET NEEDED FOR ANXIETY AND SLEEP Atorvastatin Calcium 20 MG Oral Tablet (Lipitor) TAKE ONE TABLET BY MOUTH EVERY DAY DIRECTED Folic Acid 1 MG Oral Tablet TAKE ONE TABLET BY MOUTH EVERY MORNING Levothyroxine Sodium 125 MCG Oral Tablet (Levoxyl) TAKE ONE TABLET BY MOUTH FIRST THING IN THE MORNING Montelukast Sodium 10 MG Oral Tablet (Singulair) TAKE ONE TABLET BY MOUTH AT BEDTIME OneTouch Delica Plus [id number] USE 2 TIMES A DAY DIRECTED Sotalol HCl 80 MG Oral Tablet (Betapace) TAKE ONE-HALF TABLET BY MOUTH EVERY DAY IN THE MORNING AND1/2 TABLET BEFORE BEDTIME. Torsemide 10 MG Oral Tablet (Demadex) TAKE ONE TABLET BY MOUTH EVERY MORNING AND 1 TABLET 4-5 HOURSLATER Vitamin B-12 100 MCG Oral Tablet (vitamin B-12) Take 1 Tablet by mouth in the morning. Ipratropium [place] 0.03 % Nasal Solution Administer 2 Sprays into nostril in the morning and 2 Sprays before bedtime. Pantoprazole Sodium 40 MG Oral Tablet Delayed Release (Protonix) Take 1 Tablet by mouth in the morning and 1 Tablet in the evening. [employer] In Vitro Strip (Glucose Blood) Test blood sugars up to 2 times a day E11.9 Fluticasone-Salmeterol 250-50 MCG/ACT Inhalation Aerosol Powder Breath Activated (Advair Diskus) Inhale 1 Puff by mouth in the morning and 1 Puff before bedtime. Polyethylene Glycol 3350 17 GM Oral Packet Take 1 Packet by mouth daily as needed for Constipation. Allopurinol 100 MG Oral Tablet (Zyloprim) Take 2 Tablets by mouth at bedtime. Levalbuterol Tartrate 45 MCG/ACT Inhalation Aerosol (Xopenex HFA) Inhale by mouth 1 Puff every 4 hours as needed for Wheezing. Vitamin D3 50 MCG (2000 UT) Oral Capsule Take 2 Capsules by mouth in the morning. Acetaminophen 325 MG Oral Tablet (Tylenol) Take 2 Tablets by mouth every 6 hours as needed. Aspirin 81 MG Oral Tablet Delayed Release Take 1 Tablet by mouth daily. [employer] Verio w/Device Kit Use up to 1 times a day. E11.9 ferrous sulfate (FEOSOL) 325 (65 FE) MG Tablet Take 1 Tab by mouth 2 times a day. ROS & PHYSICAL EXAMINATION: to be updated on arrival. IMPRESSION AND PLAN: -Patient with symptomatic moderate to severe MR and TR as well as severe pulmonary hypertension. -Patient presenting for Mitral Clip on 03/06/23 documented in this encounter Procedure Notes * Neel Leon MD - 03/07/2023 4:10 AM EDTAssociated Order(s): EKG REASON FOR STUDY: post day2 michael valve CONCLUSIONS: AV dual-paced rhythm Appropriate a and V capture When compared with ECG of 06-MAR-2023 11:54, No significant change was found Ventricular Rate: 61 Atrial Rate: 61 IN Interval: 128 QRS Duration: 116 QT/QTc: 480/483 ms P-R-T [place]: 0 : -37 : 13 degrees * Wilbur Rivera MD - 03/06/2023 4:03 PM EDT Inga Yuval [phone] 03/06/23 TRANSCATHETER MITRAL VALVE REPAIR STAFF PHYSICIANS: Wilbur Rivera MD DIAGNOSES: Symptomatic non rheumatic severe mitral regurgitation PROCEDURES: Successful percutaneous placement of one mitraclip XTW and one mitraclip XT device/s PROCEDURAL DETAILS: The patient was counseled extensively regarding the risks, benefits, and alternatives to the procedure and after answering all questions, the patient yielded informed consent. Thepatient was thereafter brought to the Cardiac Catheterization Laboratory. Sterile technique was used throughout the case. All vascular access was obtained by modified Seldinger technique. Preprocedural antibiotic was administered intravenously. General anesthesia was used throughout the case and the anesthesia team placed a radial arterial line. RAKESH probe was inserted by the echocardiography team. 7 F access was obtained in the left femoral vein using ultrasound guidance. An 8F sheath was placedat the right femoral vein using ultrasound guidance. Dual perclose devices were then deployed usingpreclose technique in the right femoral vein. We then placed a stiff wire and a 16 F sheath was placed into the IVC. Using a 0.032" wire, an 8F [place] Transseptal sheath was advanced into the right atrium. Intravenous heparin was administered to maintain an ACT between 250-350 seconds. Then a Versacross [place] transseptal wire was used to puncture the atrial septum, using both fluoroscopy and TEEfor guidance. Once the septum was punctured, the [place] sheath was advanced to the left atrium where the pressure was measured to be a mean of 28 mm Hg with V-waves to 64 mm Hg. A 0.032" Toray Guide wire was then advanced into the left atrium. The right femoral vein was dilated serially and then the 24F MitraClip introducer sheath was advanced into the left atrium. Using both fluoroscopy and RAKESH,a MitraClip XTW device was successfully placed, grasping both the anterior and posterior leaflets of the mitral valve. After placement of the MitraClip, RAKESH demonstrated moderate mitral regurgitationmedial to the first clip. After we felt satisfied with appropriate leaflet capture and placement, the clip was released. After the deployment of the 1st clip there was moderate degree of mitral regurgitation medial to the 1st clip. We elected to put a 2nd clip. Using both fluoroscopy and RAKESH, a MitraClip XT device was successfully placed grasping both anterior and posterior leaflets of the mitralvalve medial to the 1st clip. After the placement of the 2nd clip, rakesh demonstrated mild mitral regurgitation. This was considered terrific and we elected to accept this result. All equipment was then removed. The dual perclose devices were secured. A figure eight stich was placed at the puncture site at the right femoral vein, and hemostasis at the left femoral vein was achieved with manual compression. IMPRESSION: Successful percutaneous placement of one mitraclip XTW and one mitraclip XT device/s RECOMMENDATIONS: 1. Resume aspirin 2. Routine post procedure care. 3. Remove figure of 8 stich in the AM. Wilbur Rivera MD MPH Interventional Cardiology Pager: [phone] 03/06/23 4:03 PM documented in this encounter Consult Notes * Yves Mosquera RN - 03/07/2023 1:50 PM EDTAssociated Order(s): CARE MANAGEMENT CONSULT IP ADULT CARE MANAGEMENT - DISCHARGE NOTE [address] [address] Name: Inga Barakat Location: [facility] Date: 03/07/2023 Time: 1:51 PM The following coordination of care and discharge plan has been coordinated with the care team, patient, family and/or caregiver according to the patients needs and preferences. Discharge Discharge Second Notice Important Message from Medicare delivered: Not Applicable (03/07/23 1350) Final D/C Plan - Complete at time of D/C Final Discharge Plan (Complete only at time of Discharge): Home - Self Care (03/07/23 1350) Destination - Admitted Since 03/06/2023 No services have been selected for the patient. Narrative: Chart reviewed. No Care Management needs identified at this time. Care Management will continue to follow. S/p cardiac catheterization for mitraclip placement AMPAC= 24. Independent with ADLs [employer]. Lives with spouse. Anticipated discharge to home when medically ready. Unlikely today d/t bradycardia into 40s at times. Pt discharging to home. No needs identified by CM. Family/friends anticipated to provide discharge transportation. Please contact CM with any concerns. documented in this encounter Nursing Notes * Mikayla Cool RN - 03/07/2023 4:55 PM EDT NURSING DISCHARGE PROGRESS NOTE [address] [address] Name: Inga Barakat [place] [facility] [place]: 03/07/[place]23 Time: 4:55 PM The nursing measures listed below are those which were carried out while the patient was at the facility noted above and are not to be interpreted as physician orders for extended care. ACCOMPANIED BY: spouse DESTINATION: home DISCHARGE NURSE: Mikayla oCol RN Height: Height: 165.1 cm (5' 5") (03/06/23636) Weight: Weight: 73.5 kg (162 lb) (03/06/23636) Most Recent Vital Signs: BP: 98 mmHg/51 mmHg (03/07/23 1210) Pulse: 73 (03/07/23 1450) Temp: 36.11 C (03/07/23 1120) Resp: 24 (03/07/23 1450) SpO2: 93 % (03/07/23 1205) PAIN LEVEL AT DISCHARGE: Level of Pain: 0/10 Pain Scale Type: [facility] Scale 0-10 Instructions for Pain Management Post Discharge Given: yes BELONGINGS PRESENT ON DISCHARGE: Belongings remaining with patient:: Cell Phone;Hearing Aid - Right (03/07/23714) Patient Belongings at Bedside Belongings at Bedside: Vision;Clothing;Hearing aids;Medical equipment;Electronic devices (03/06/23609) Vision - Corrective Lenses: Glasses (03/06/23609) Hearing Aid: Right hearing aid (03/06/23609) Clothing: Pants;Shirt;Sweater;Footwear;Underpants;Socks (03/06/23609) Patient Electronics: Laptop;Cell phone (03/06/23609) Medical Equipment: Walker (03/06/23609) Patient Belongings Sent to Safe/Locker Belongings Sent to Safe: None (03/06/23609) I verified that all belongings were present at discharge. (Nurse initials - ) Medications Brought by Patient?: No (03/06/23609) Home Medications: N/A (03/06/23649) I verified that all remaining home medications were returned to patient at discharge. (Nurse initials - N/A) HARD COPY OF NARCOTIC PRESCRIPTION SIGNED AND PROVIDED TO PATIENT UPON HOSPITAL DISCHARGE: N/A READMISSION RISK (SCORE): Readmission Risk Score: 15.08 (03/07/23 1600) RESTRAINTS THIS HOSPITALIZATION: no BEHAVIORAL CONCERNS: none IMMUNIZATIONS GIVEN THIS ADMISSION: none NEUROLOGICAL [place] Coma Scale: Best Verbal Response: Verbally appropriate for age (03/07/23 1205) Best Motor Response: Obeys commands appropriate for age (03/07/23 1205) Coma Score: 15 (03/07/23 1205) Extremity Movement: RLE Motor Strength: 5-Active movement with full resistance (03/07/23714) RUE Motor Strength: 5-Active movement with full resistance (03/07/23714) LLE Motor Strength: 5-Active movement with full resistance (03/07/23714) LUE Motor Strength: 5-Active movement with full resistance (03/07/23714) Pupil Size/Reaction: SEIZURE PRECAUTIONS: no SENSORY DEFICITS: no SPEECH, HEARING, VISION PROBLEMS: Are you deaf or do you have serious difficulty hearing?: No ([place] can hear w/ hearing aid) () Are you blind or do you have serious difficulty seeing, even when wearing glasses?: No (03/07/2349) Is patient non-verbal or have difficulty speaking? no LANGUAGE BARRIER: no FEEDING: independent ORAL HYGIENE: brushes own teeth Functional [place] Measure (must be completed for all patients on discharge): Feedin = complete independence Locomotion: 4 = complete independence Expression: 4 = complete independence Transfer Mobility/Ambulation Status: 4 = complete independence Social Interaction: 4 = complete independence Dressin = complete independence Hygiene: 4 = complete independence RESPIRATORY: Discharged with Oxygen: no Ventilator: no Trach/Date of Trach: no CARDIOVASCULAR: (Cardiovascular WNL = Rhythm regular, normal rate per age, normal heart sounds (not accentuated, diminished or split,) no edema, brisk capillary refill, pulses present, no murmur.) Observation WNL = Observation WNL: Yes (03/07/23714) P = palpable D = doppler Carotid Brachial Radial Femoral Dorsalis Pedis Posterior Tibial Popliteal Right P P Left P P Intravenous Lines: Removed INTEGUMENTARY: Integumentary Observations: incision - Bilateral groin site- bandaid changed, see flowsheets for other documentation. Wound(s): none MUSCULOSKELETAL: Prosthetic(s): no GI ELIMINATION: (GI WNL = Abdomen flat, soft, no tenderness, symmetrical. Normal active bowel sounds present in all4 quadrants.) Observation WNL: Ostomy Present: no ELIMINATION: ( WNL = Genitalia intact without discharge, swelling or pain. Urine clear and pale yellow, no foul smell. Continence appropriate for age. No bladder distention - absence of urinary devices - no hemo or peritoneal dialysis.) Observation WNL: Observational WNL: Yes (03/06/23 0652) Ostomy Present: no REPRODUCTIVE: Reproductive/Sexual Concerns: no Drainage: n/a COPING: Family/Community Support Systems in Place: Yes, Emergency Contact Name: Emergency Contact Number: Discharge instructions reviewed with patient. Reviewed medications, wound care, activity restrictions, and return appointments. Discharge Checklist: Discharge Instructions - Initials: Prescriptions for Controlled Substances: N/A - Initials: Home Medications Returned: N/A - Initials: POLST Form (if applicable): N/A - Initials: All IV Fluid sites have been discontinued: yes, date - 03/07/23 - Initials: Lines/Drains/Airways (LDAs) have been completed in flowsheet rows: N/A - Initials: * Amanda Ford RN - 03/04/2023 12:25 PM EDT NO ANESTHESIA EVAL REQUESTED PER CASE DOCUMENTATION. Pre-operative chart review completed. Amanda Ford RN documented in this encounter Miscellaneous Notes * Progress Notes - Non-Billable - Orlando Azevedo MD - 03/07/2023 12:56 AM EDT POST-CATH CHECK (percutaneous placement of one mitraclip XTW and one mitraclip XT device/s) Subjective: Patient doing well post-cath. Denies significant pain, numbness, tingling, bleeding, weakness at the rt. radial cath site. Also denies any chest pain, shortness of breath, palpitations, headaches, nausea, vomiting, abdominal pain. Objective: BP 114/44 | Pulse 60 | Temp 37.2 C (99 F) (Tympanic) | Resp 18 | Ht 1.651 m (5' 5") | Wt 73.5 kg (162 lb) | SpO2 98% | BMI 26.96 kg/m | BSA 1.84 m Urethral Catheter Regular catheter (Active) Number of days: 1 Peripheral Line Lower;Right Antecubital 20 Gauge (Active) Number of days: 1 General: Patient in no apparent distress. HEENT: normocephalic, atraumatic. Heart: regular rate and rhythm; S1 and S2 present Pulmonary: Normal respiratory effort Abdomen: Soft, non-tender, non-distended. Extremities: No pitting edema present at lower extremity bilaterally. Neuro: AAOx3. Psych: Appropriate mood and affect. Cath site: TR band off. No significant bleeding. Pulse, strength, sensation intact. Procedure results: percutaneous placement of one mitraclip XTW and one mitraclip XT device/s Successful placement Assessment/Plan: Inga Barakat is a 82 year old female who underwent cardiac catheterization for mitraclip placement. Currently hemodynamically stable and no active bleeding. - Rest of management per day team note Orlando Azevedo MD * Communication - Chaitanya Pelayo MD - 03/06/2023 5:08 PM EDT Discussed Code status with patient. She called her family who indicated that she is DNR in her will, to which the patient agreed and said she wishes to remain DNR. documented in this encounter Plan of Treatment Upcoming Encounters Date Type Specialty Care Team Description 03/10/2023 Home Visit [facility] Karlene Zepeda RN [address] [place] [id number] 03/14/2023 Office Visit Cardiology Pilar Atkinson CRNP [address] [address] 03/17/2023 Office Visit Cardiology Stephen Hewitt DO [address] [place] [address] 03/19/2023 Imaging Radiology 04/02/2023 Office Visit Vascular Surgery Stephen Wright PA-C [address] [place] [address] 04/07/2023 Office Visit Gastroenterology Janine Cunningham CRNP [address] [place] [address] 04/07/2023 Laboratory Laboratory [place], Lab [facility] [address] [place] [address] 04/07/2023 Office Visit Cardiology Emelina Aden CRNP [address] [place] [address] 04/11/2023 Office Visit Hematology Oncology Nereyda Metz CRNP [address] [place], [place] [phone] 04/16/2023 Office Visit Cardiology Wilbur Rivera MD [address] [place] [address] 05/09/2023 Office Visit Nephrology Rosario Green MD [address] [place] [address] 05/14/2023 Cardiac Studies Cardiac Studies 05/22/2023 Office Visit Ophthalmology Wilbur Benavides DO [address] [place] [address] 05/23/2023 Office Visit Family Medicine Florentin Calvo, [address] [place] [address] 10/24/2023 Office Visit Gynecology Oncology Chris Peng PA-C [address] [place] [address] Scheduled Orders Name Type Priority Associated Diagnoses Orde r Schedule EKG EKG STAT S/P TAVR (transcatheter aortic valve replacement) Perform Now for 1 Occurrences starting 03/06/2023 until 03/06/2023 EKG EKG STAT Post-operative state One Time for 1 Occurrences starting 03/06/2023 until 03/06/2023 Health Maintenance Due Date Last Done Comments DIABETES-EYE EXAM 04/11/2023 04/11/2022, , 04/11/2022, Additional history exists Influenza Vaccine (FLU shot) (#1) 2023 05/15/2022, 05/22/2021, 04/19/2020, Additional history exists CKD PHOS USE SMARTSET 90725 05/01/2023 09/0 02/2022, 04/03/2022, 12/05/2020, Additional history [...] Additional history exists CKD HGB USE SMARTSET 06213 03/07/202403/07, 03/06/2023, 03/04/2023, Additional history exists DXA Scan 05/07/2025 05/07/2021, 0509/2016, 04/12/2013, Additional history exists COLONOSCOPY-EVERY 4 YRS [...] this encounter Medical Devices Implanted Type Area [employer] Steward Device Identifier Shelf Expiration Date Model / Serial / Lot Cath Thermodilution 6fr - [id number] Implanted:Qty: 1 on 01/24/2023 by Wilbur Rivera MD at [facility] [place] [employer] TERE [id number] 10/15/2024 [id number] / / [id number] documented as of this encounter Procedures Procedure Name Priority Date/Time Associated Diagnosis Comments ECHO, COMPLETE (2D), TRANS-THORACIC Routine 03/07/2023 8:55 AM EDT S/P TAVR (transcatheter aortic valve replacement) XR CHEST 1 VIEW Routine 03/07/2023 5:44 AM EDT BASIC METABOLIC PANEL STAT 03/07/2023 4:14 AM EDT CBC STAT 03/07/2023 4:14 AM EDT MAGNESIUM STAT 03/07/2023 4:14 AM EDT HC ECG TRACING ONLY Routine 03/07/2023 4 :10 AM EDT Post-operative state XR CHEST 1 VIEW STAT 03/06/2023 11:47 AM EDT BASIC METABOLIC PANEL STAT 03/06/2023 11:30 AM EDT CBC STAT 03/06/2023 11:30 AM EDT MAGNESIUM STAT 03/06/2023 11:30 AM EDT TRANSESOPHAGEAL ECHO (COMPLETE) Routine 03/06/2023 11:10 AM EDT Valvular heart disease ACT, POINT OF CARE TANJA 03/06/2023 10 :36 AM EDT ACT, POINT OF CARE TANJA 03/06/2023 10 :16 AM EDT ACT, POINT OF CARE TANJA 03/06/2023 9: 44 AM EDT ACT, POINT OF CARE TANJA 03/06/2023 9: 23 AM EDT BLOOD GAS WITH CHEMISTRY, POINT OF CARE [facility] 03/06/2023 9:10 AM EDT ACT, POINT OF CARE TANJA 03/06/2023 9: 01 AM EDT ACT, POINT OF CARE TANJA 03/06/2023 8: 48 AM EDT ACT, POINT OF CARE TANJA 03/06/2023 7: 45 AM EDT BNP (NT-PROBNP) Routine 03/06/2023 6:27 AM EDT HC COMPATIBILITY ELECTRONIC CROSSMATCH STAT 03/06/2023 6:15 AM EDT CARDIAC CATHETERIZATION REPORT Routine 03/06/2023 documented in this encounter Results * ECHO, COMPLETE (2D), TRANS-THORACIC (03/07/2023 8:55 AM EDT) LEFT VENTRICULAR EJECTION FRACTION 55 % [facility] 03/07/2023 6:46 AM EDT Selene Servin MD ECHOCARDIOLOGY [facility] * XR CHEST 1 VIEW (03/07/2023 5:44 AM EDT) Anatomical Region Laterality Modality Chest Computed Radiogr aphy 03/07/2023 9:08 AM EDT Impressions 03/07/2023 9:05 AM EDT IMPRESSION Postoperative chest as above. Narrative 03/07/2023 9:05 AM EDT EXAM XR CHEST 1 VIEW-03/07/2023 5:44 am HISTORY POD #1 S/P TAVR or Mitraclip COMPARISON XR chest 03/06/2023. TECHNIQUE Single portable frontal view of the chest. FINDINGS Lines/Tubes: None. Lungs/Pleura: Minimal lateral left basilar opacity, favor atelectasis. No sizable pleural effusion. No pneumothorax. Heart/Mediastinum: Unchanged contours. Mitraclips. Two lead left-sided cardiac device redemonstrated. Bones/Soft Tissues: Posterior cervical fixation hardware. Upper Abdomen: Visualized portions are unremarkable. Procedure Note Wilbur Garcia MD - 03/07/2023 EXAM XR CHEST 1 VIEW-03/07/2023 5:44 am HISTORY POD #1 S/P TAVR or Mitraclip COMPARISON XR chest 03/06/2023. TECHNIQUE Single portable frontal view of the chest. FINDINGS Lines/Tubes: None. Lungs/Pleura: Minimal lateral left basilar opacity, favor atelectasis. Nosizable pleural effusion. No pneumothorax. Heart/Mediastinum: Unchanged contours. Mitraclips. Two lead left-sidedcardiac device redemonstrated. Bones/Soft Tissues: Posterior cervical fixation hardware. Upper Abdomen: Visualized portions are unremarkable. IMPRESSION IMPRESSION Postoperative chest as above. Selene Servin MD RADIOLOGY (RAD GE NERAL) * MAGNESIUM (03/07/2023 4:14 AM EDT) Magnesium 2.1 1.5 - 2.6 mg/dL 03/07/2023 4:58 AM EDT [facility] Blood Venous blood specimen / Unknown Venipuncture / Unknown 03/07/2023 4:14 AM EDT 03/07/2023 4:28 AM EDT Selene Servin MD LAB BLOOD ORDERAB LES [facility] [address] [place] [address] * (ABNORMAL) CBC (03/07/2023 4:14 AM EDT) Pathologist [facility] WBC 10.52 4.00 - 10.80 K/uL 03/07/2023 4:39 AM EDT [facility] RBC 2.97 3.85 - 5.15 M/uL 03/07/2023 4:39 AM EDT [facility] HGB 8.8(L) 12.0 - 15.3 g/dL 03/07/2023 4:39 AM EDT [facility] HCT 28.2(L) 36.0 - 45.2 % 03/07/2023 4:39 AM EDT [facility] MCV 94.9 81.5 - 97.5 fL 03/07/2023 4:39 AM EDT [facility] MCH 29.6 27.0 - 34.0 pg 03/07/2023 4:39 AM EDT [facility] MCHC 31.2 32.0 - 36.0 g/dL 03/07/2023 4:39 AM EDT [facility] RDW 16.9 11.5 - 15.5 % 03/07/2023 4:39 AM EDT [facility] PLT 164 140 - 400 K/uL 03/07/2023 4:39 AM EDT [facility] MPV 10.5 6.6 - 11.1 fL 03/07/2023 4:39 AM EDT [facility] nRBCs 0 <=0 /100 WBCs 03/07/2023 4:39 AM EDT [facility] Blood Venous blood specimen / Unknown Venipuncture / Unknown 03/07/2023 4:14 AM EDT 03/07/2023 4:28 AM EDT Selene Servin MD LAB BLOOD ORDERAB LES Performing Organization Address City/[facility]/ZIP Co de Phone Number LAB[facility]ATORY [facility] [address] [place] [address] * (ABNORMAL) BASIC METABOLIC PANEL (03/07/2023 4:14 AM EDT) BUN 38(H) 6 - 20 mg/dL 03/07/2023 4:58 AM EDT [facility] Creatinine 1.5(H) 0.5 - 1.0 mg/dL 03/07/2023 4:58 AM EDT [facility] Estimated Glomerular Filtration Rate 34(L) >=60 mL/min 03/07/2023 4:58 AM EDT [facility] Comment:eGFR is calculated b ased on the CKD-EPI 2020 equation Sodium 139 135 - 146 mmol/L 03/07/2023 4:58 AM EDT [facility] Potassium 4.0 3.5 - 5.1 mmol/L 03/07/2023 4:58 AM EDT [facility] Chloride 104 98 - 107 mmol/L 03/07/2023 4:58 AM EDT [facility] CO2 23 22 - 32 mmol/L 03/07/2023 4:58 AM EDT [facility] Anion Gap 12 7 - 15 mmol/L 03/07/2023 4:58 AM EDT [facility] Glucose 117 70 - 120 mg/dL 03/07/2023 4:58 AM EDT [facility] Calcium 9.0 8.4 - 10.2 mg/dL 03/07/2023 4:58 AM EDT LAB[facility] Blood Venous blood specimen / Unknown Venipuncture / Unknown 03/07/2023 4:14 AM EDT 03/07/2023 4:28 AM EDT Selene Servin MD LAB BLOOD ORDERAB LES Performing Organization Address City/[facility]/ZIP Co de Phone Number LAB[facility]ATORY [facility] [address] [place] [address] * EKG (03/07/2023 4:10 AM EDT) 03/07/2023 4:10 AM EDT Procedure Note Neel Leon MD - 03/07/2023 4:10 AM EDT REASON FOR STUDY: post day2 michael valve CONCLUSIONS: AV dual-paced rhythm Appropriate a and V capture When compared with ECG of 06-MAR-2023 11:54, No significant change was found Ventricular Rate: 61 Atrial Rate: 61 IN Interval: 128 QRS Duration: 116 QT/QTc: 480/483 ms P-R-T [place]: 0 : -37 : 13 degrees Selene Servin MD EKG [employer] CARDIOLOGY * XR CHEST 1 VIEW (03/06/2023 11:47 AM EDT) Anatomical Region Laterality Modality Chest Computed Radiogr aphy 03/06/2023 12:1 0 PM EDT Impressions 03/06/2023 12:07 PM EDT IMPRESSION Interval mitral clip placement. Hypoventilatory changes with diffuse haziness throughout the lungs which may relate to mild edema. Narrative 03/06/2023 12:07 PM EDT EXAM XR CHEST 1 VIEW-03/06/2023 11:47 am HISTORY baseline initial xray after open heart surgery COMPARISON Chest radiograph 12/05/2022. TECHNIQUE Semi-upright AP view of the chest. FINDINGS Lines/Tubes/Devices: Interval placement of 2 mitral clips projecting over the left heart. Lungs/Pleura: Lung volumes with mild hazy opacities throughout the lungs which may relate to mild edema. No pleural effusion discernible pneumothorax. Heart/Mediastinum: Size and contours are stable. Aortic atherosclerosis. Bones/Soft Tissues: Degenerative osseous changes. No acute osseous abnormality. Partially imaged posterior spinal fusion in the lower cervical spine. Upper Abdomen: Visualized portions are unremarkable. Procedure Note Talha Fink MD - 03/06/2023 EXAM XR CHEST 1 VIEW-03/06/2023 11:47 am HISTORY baseline initial xray after open heart surgery COMPARISON Chest radiograph 12/05/2022. TECHNIQUE Semi-upright AP view of the chest. FINDINGS Lines/Tubes/Devices: Interval placement of 2 mitral clips projecting overthe left heart. Lungs/Pleura: Lung volumes with mild hazy opacities throughout the lungswhich may relate to mild edema. No pleural effusion discerniblepneumothorax. Heart/Mediastinum: Size and contours are stable. Aorticatherosclerosis. Bones/Soft Tissues: Degenerative osseous changes. No acute osseousabnormality. Partially imaged posterior spinal fusion in the lowercervical spine. Upper Abdomen: Visualized portions are unremarkable. IMPRESSION IMPRESSION Interval mitral clip placement. Hypoventilatory changes with diffuse haziness throughout the lungs whichmay relate to mild edema. Selene Servin MD RADIOLOGY ([facility]) * MAGNESIUM (03/06/2023 11:30 AM EDT) Pathologist [facility] Magnesium 2.3 1.5 - 2.6 mg/dL 03/06/2023 12:06 PM EDT [facility] [place] Venous blood specimen / Unknown Venipuncture / Unknown 03/06/2023 11:30 AM EDT 03/06/2023 11:40 AM EDT Selene Servin MD LAB BLOOD ORDERAB LES LAB[facility]AT[facility] [address] [place] [address] * (ABNORMAL) CBC (03/06/2023 11:30 AM EDT) WBC 10.94(H) 4.00 - 10.80 K/uL 03/06/2023 11:52 AM EDT LAB[facility]ATORY [facility] RBC 3.06 3.85 - 5.15 M/uL 03/06/2023 11:52 AM EDT LAB[facility] HGB 9.5(L) 12.0 - 15.3 g/dL 03/06/2023 11:52 AM EDT LAB[facility]ATORY [facility] HCT 29.9(L) 36.0 - 45.2 % 03/06/2023 11:52 AM EDT LAB[facility]ATORY [facility] MCV 97.7 81.5 - 97.5 fL 03/06/2023 11:52 AM EDT LAB[facility] MCH 31.0 27.0 - 34.0 pg 03/06/2023 11:52 AM EDT LAB[facility]ATORY [facility] MCHC 31.8 32.0 - 36.0 g/dL 03/06/2023 11:52 AM EDT LAB[facility] RDW 16.9 11.5 - 15.5 % 03/06/2023 11:52 AM EDT LAB[facility] PLT 154 140 - 400 K/uL 03/06/2023 11:52 AM EDT LAB[facility]ATORY [facility] MPV 10.2 6.6 - 11.1 fL 03/06/2023 11:52 AM EDT LAB[facility]ATORY [facility] nRBCs 0 <=0 /100 WBCs 03/06/2023 11:52 AM EDT LAB[facility] Blood Venous blood specimen / Unknown Venipuncture / Unknown 03/06/2023 11:30 AM EDT 03/06/2023 11:40 AM EDT Selene Servin MD LAB BLOOD ORDERAB LES LAB[facility]AT[facility] [address] [place] [address] * (ABNORMAL) BASIC METABOLIC PANEL (03/06/2023 11:30 AM EDT) BUN 40(H) 6 - 20 mg/dL 03/06/2023 12:06 PM EDT LABORATORY C Creatinine 1.5(H) 0.5 - 1.0 mg/dL 03/06/2023 12:06 PM EDT LAB[facility]ATORY [facility] Estimated Glomerular Filtration Rate 35(L) >=60 mL/min 03/06/2023 12:06 PM EDT LAB[facility]ATORY [facility] Comment:eGFR is calculated b ased on the CKD-EPI 2020 equation Sodium 139 135 - 146 mmol/L 03/06/2023 12:06 PM EDT LAB[facility]ATORY [facility] Potassium 4.4 3.5 - 5.1 mmol/L 03/06/2023 12:06 PM EDT LAB[facility]ATORY [facility] Chloride 105 98 - 107 mmol/L 03/06/2023 12:06 PM EDT LAB[facility]ORY [facility] CO2 23 22 - 32 mmol/L 03/06/2023 12:06 PM EDT LAB[facility] Anion Gap 11 7 - 15 mmol/L 03/06/2023 12:06 PM EDT LAB[facility] Glucose 150(H) 70 - 120 mg/dL 03/06/2023 12:06 PM EDT LAB[facility] Calcium 8.9 8.4 - 10.2 mg/dL 03/06/2023 12:06 PM EDT LAB[facility] Blood Venous blood specimen / Unknown Venipuncture / Unknown 03/06/2023 11:30 AM EDT 03/06/2023 11:40 AM EDT Selene Servin MD LAB BLOOD ORDERAB LES LAB[facility] [address] [place] [address] * TRANSESOPHAGEAL ECHO (COMPLETE) (03/06/2023 11:10 AM EDT) Pathologist [facility] LEFT VENTRICULAR EJECTION FRACTION 55 % [facility] CARDIOLOGY 03/06/2023 7:30 AM EDT Wilbur Rivera MD ECHOCARDIOLOGY Performing Organization Address [facility] Co de Phone Number [facility] CARDIOLOGY * ACT, POINT OF CARE (03/06/2023 10:36 AM EDT) ACT 161 50 - 1,000 secs 03/06/2023 2:11 PM EDT boarding pass Blood 03/06/2023 10:3 6 AM EDT 03/06/2023 2:11 PM EDT Narrative [facility] - 03/06/2023 2:11 PM EDT NORMAL (NON-HEPARINIZED) 74-137 SECONDS HEPARINIZED 200+ SECONDS CRITICAL GREATER THAN 1000 SECONDS Avis Dueñas MD LAB POINT OF CARE TEST DOCKED DEVICE UNSOLICITED RESULTS Performing Organization Address [facility] Co de Phone Number [facility] [employer] [facility] [address] [place] [address] * ACT, POINT OF CARE (03/06/2023 10:16 AM EDT) ACT 305 50 - 1,000 secs 03/06/2023 2:11 PM EDT boarding pass Blood 03/06/2023 10:1 6 AM EDT 03/06/2023 2:11 PM EDT [employer] - 03/06/2023 2:11 PM EDT NORMAL (NON-HEPARINIZED) 74-137 SECONDS HEPARINIZED 200+ SECONDS CRITICAL GREATER THAN 1000 SECONDS Avis Dueñas MD LAB POINT OF CARE TEST DOCKED DEVICE UNSOLICITED RESULTS [facility] [address] [place] [address] * ACT, POINT OF CARE (03/06/2023 9:44 AM EDT) [facility] ACT 317 50 - 1,000 secs 03/06/2023 2:11 PM EDT boarding pass Blood 03/06/2023 9:44 AM EDT 03/06/2023 2:11 PM EDT [employer] - 03/06/2023 2:11 PM EDT NORMAL (NON-HEPARINIZED) 74-137 SECONDS HEPARINIZED 200+ SECONDS CRITICAL GREATER THAN 1000 SECONDS Avis Dueñas MD LAB POINT OF CARE TEST DOCKED DEVICE UNSOLICITED RESULTS [facility] [address] [place] [address] * ACT, POINT OF CARE (03/06/2023 9:23 AM EDT) Pathologist [facility] ACT 269 50 - 1,000 secs 03/06/2023 2:11 PM EDT boarding pass Blood 03/06/2023 9:23 AM EDT 03/06/2023 2:11 PM EDT [employer] - 03/06/2023 2:11 PM EDT NORMAL (NON-HEPARINIZED) 74-137 SECONDS HEPARINIZED 200+ SECONDS CRITICAL GREATER THAN 1000 SECONDS Avis Dueñas MD LAB POINT OF CARE TEST DOCKED DEVICE UNSOLICITED RESULTS [facility] [address] [place] [address] * (ABNORMAL) BLOOD GAS WITH CHEMISTRY, POINT OF CARE (03/06/2023 9:10 AM EDT) Draw Site Arterial Draw 03/06/2023 2:11 PM EDT [facility] pH i-STAT 7.385 7.350 - 7.450 03/06/2023 2:11 PM EDT [facility] pCO2 i-STAT 36.3 35.0 - 45.0 mm Hg 03/06/2023 2:11 PM EDT [facility] pO2 i-STAT 194(H) 75 - 100 mm Hg 03/06/2023 2:11 PM EDT [facility] Base Excess i-STAT -3(L) -2 - 2 mmol/L 03/06/2023 2:11 PM EDT [facility] Bicarbonate i-STAT 21.7(L) 23.0 - 31.0 mmol/L 03/06/2023 2:11 PM EDT [facility] O2 Saturation i-STAT 100.0(H) 94.0 - 98.0 % 03/06/2023 2:11 PM EDT [facility] Glucose i-STAT 150(H) 70 - 120 mg/dL 03/06/2023 2:11 PM EDT [facility] Potassium i-STAT 3.8 3.5 - 5.1 mmol/L 03/06/2023 2:11 PM EDT [facility] Sodium i-STAT 140 135 - 146 mmol/L 03/06/2023 2:11 PM EDT [facility] Calcium Ionized i-STAT 1.19 1.13 - 1.32 mmol/L 03/06/2023 2:11 PM EDT [facility] Hemoglobin i-STAT 12.2 12.0 - 15.3 g/dL 03/06/2023 2:11 PM EDT [facility] Hematocrit i-STAT 36 36 - 45 % 03/06/2023 2:11 PM EDT [facility] [employer] Arterial Draw 03/06/2023 9:1 0 AM EDT 03/06/2023 2:11 PM EDT Avis Dueñas MD LAB POINT OF CARE TEST DOCKED DEVICE UNSOLICITED RESULTS Performing Organization Address City/[facility]/ZIP Co de Phone Number [facility] [address] [place] [address] * ACT, POINT OF CARE (03/06/2023 9:01 AM EDT) ACT 311 50 - 1,000 secs 03/06/2023 2:11 PM EDT [facility] [employer] [facility] Blood 03/06/2023 9:01 AM EDT 03/06/2023 2:11 PM EDT Narrative boarding pass - 03/06/2023 2:11 PM EDT NORMAL (NON-HEPARINIZED) 74-137 SECONDS HEPARINIZED 200+ SECONDS CRITICAL GREATER THAN 1000 SECONDS Avis Dueñas MD LAB POINT OF CARE TEST DOCKED DEVICE UNSOLICITED RESULTS Performing Organization Address [facility] Co de Phone Number [facility] [address] [place] [address] * ACT, POINT OF CARE (03/06/2023 8:48 AM EDT) ACT 275 50 - 1,000 secs 03/06/2023 2:11 PM EDT boarding pass Blood 03/06/2023 8:48 AM EDT 03/06/2023 2:11 PM EDT Narrative boarding pass - 03/06/2023 2:11 PM EDT NORMAL (NON-HEPARINIZED) 74-137 SECONDS HEPARINIZED 200+ SECONDS CRITICAL GREATER THAN 1000 SECONDS Avis Dueñas MD LAB POINT OF CARE TEST DOCKED DEVICE UNSOLICITED RESULTS Performing Organization Address City/[facility]/ZIP Co de Phone Number [facility] [address] [place] [address] * ACT, POINT OF CARE (03/06/2023 7:45 AM EDT) [facility] ACT 161 50 - 1,000 secs 03/06/2023 2:11 PM EDT [facility] Blood 03/06/2023 7:45 AM EDT 03/06/2023 2:11 PM EDT Narrative [facility] - 03/06/2023 2:11 PM EDT NORMAL (NON-HEPARINIZED) 74-137 SECONDS HEPARINIZED 200+ SECONDS CRITICAL GREATER THAN 1000 SECONDS Avis Dueñas MD LAB POINT OF CARE TEST DOCKED DEVICE UNSOLICITED RESULTS [facility] [address] [place] [address] * (ABNORMAL) BNP, NT-PRO (03/06/2023 6:27 AM EDT) [facility] BNP, NT-Pro 11,886(H) <300 pg/mL 03/06/2023 7:34 AM EDT LAB[facility]ATORY [facility] Blood Venous blood specimen / Unknown Venipuncture / Unknown 03/06/2023 6:27 AM EDT 03/06/2023 6:32 AM EDT [facility] LAB[facility]ATORY [facility] - 03/06/2023 7:34 AM EDT Exclude Heart Failure: <300 pg/mL Diagnose Heart Failure: Age <50 yr: >450 pg/mL 50-75 yr: >900 pg/mL >75 yr: >1800 pg/mL GFR is 30-59 mL/min: >1200 pg/mL or Age-adjusted values GFR <30 mL/min: do not use, not reliable Prognostic threshold: 1000 pg/mL Wilbur Rivera MD LAB BLOOD ORDERABLES [facility] [address] [place] [address] * PREPARE PACKED RED BLOOD CELLS (03/06/2023 6:15 AM EDT) Unit Product Code [id number] [facility] BLOOD B[facility] Unit Number [id number] LABO RATORY [facility] BLOOD [facility] Unit ABO O LABORATORY [facility] BLOOD BANK Unit Rh POS LABORATORY [facility] BLOOD B[facility] Unit Crossmatch Compatible LABORATORY [facility] BLOOD BANK Unit Status RE LABORATO RY [facility] BLO[facility] Unit Blood Type OPOS LABORATORY [facility] BLOOD [facility] Unit Expiration [id number] [facility] BLOOD [facility] Unit Barcode 5100 LABORAT ORY [facility] BLO[facility] Unit Product Code [id number] LAB[facility]LO[facility] Unit Number [id number] LABO RATORY [facility]LO[facility] Unit ABO O LABORATORY GM BLOOD BANK Unit Rh POS LAB[facility]AT[facility] Unit Crossmatch Compatible LABORATORY [facility]LOOD [facility]ANK Unit Status RE LABORATO RY [facility] BLO[facility] Unit Blood Type OPOS LABORATORY [facility] BLOOD [facility] Unit Expiration [id number] LAB[facility]ATORY [facility] BLOOD [facility] Unit Barcode 5100 LABORAT ORY [facility] 03/06/2023 6:15 AM EDT Wilbur Rivera MD BLD BANK PRODUCT ORD ERABLES LAB[facility]ATORY [facility] BLO[facility] [address] [place] [address] * CARDIAC CATHETERIZATION REPORT (03/06/2023) Pathologist [facility] DATE OF PROCEDURE 03/06/2023 [facility] DIAGNOSTIC Wilbur Mckinley MD [facility] PROCEDURES TMVR - Repair perq, with transseptal puncture, initial prosthesis [facility] TOTAL CONTRAST VOLUME 0 ml [facility] TOTAL RADIATION 0.18 Gy [facility] COMPLICATIONS No complication None [facility] 03/06/2023 03/06/2023 4:2 6 PM EDT Wilbur Rivera MD CARD CATH [facility] documented in this encounter Visit Diagnoses Diagnosis S/P mitral valve clip implantation- Primary S/P mitral valve clip implantation Valvular heart disease Endocarditis, valve unspecified, 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) Heart valve replaced by other means Post-operative state Other postprocedural status 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) Pulmonary hypertension (HCC) Other chronic pulmonary heart diseases Severe mitral valve regurgitation Cardiac pacemaker in situ Severe tricuspid regurgitation Diseases of tricuspid valve Paroxysmal atrial fibrillation (HCC) Atrial fibrillation Chronic diastolic CHF (congestive heart failure) (HCC) Chronic diastolic heart failure documented in this encounter Administered Medications Inactive Administered Medications - up to 3 most recent administrations Medication Order MAR Action Action Date Dose Rate Site Acetaminophen (Tylenol) tab 650 mg 650 mg, Oral, Q6H, First dose on Fri03/06/23 at 1200, Last dose on Fri03/11/23 at 0600, For 5 days, Maximum 4 g acetaminophen/day. Avoid in patients with severe hepatic impairment or severe active liver disease. Use for 5 days., Post-op Given 03/07/2023 5:40 AM EDT 650 mg Allopurinol (Zyloprim) tab 200 mg 200 mg, Oral, HS, First dose on Fri03/06/23 at 2200, Until Discontinued Given 03/06/2023 9:22 PM EDT 200 mg ALPRAZolam (xaNAX) tab 0.5 mg 0.5 mg, Oral, QHS PRN Anxiety, Starting on Fri03/06/23 at 2031, Until Fri03/07/23 at 2108 Given 03/06/2023 9:22 PM EDT 0.5 mg aspirin enteric coated tab 81 mg 81 mg, Oral, [id number], First dose on Fri03/07/23 at 0630, Until Discontinued Given 03/07/2023 9:50 AM EDT 81 mg atorvaSTATin (Lipitor) tab 20 mg 20 mg, Oral, [id number], First dose on Fri03/07/23 at 0630, Until Discontinued Given 03/07/2023 9:52 AM EDT 20 mg Bumetanide (Bumex) inj 2 mg 2 mg, IV Push, BID (0900, 1600), First dose on Fri03/06/23 at 1600, Until Discontinued, May administer as dispensed over 1 to 5 minutes DO NOT REFRIGERATE Given 03/07/2023 9:57 AM EDT 2 mg Given 03/07/2023 9:00 AM EDT 2 mg Given 03/06/2023 5:17 PM EDT 2 mg fluticasone furoate-vilanterol (BREO ellipta) 100-25 MCG/ACT inhaler 1 Puff 1 Puff, Inhalation, Daily(AM), First dose on Fri03/07/23 at 0900, Until Discontinued Given 03/07/2023 9:49 AM EDT 1 Puff hEParin inj 5,000 Units 5,000 Units, Subcutaneous, Q8H, First dose on Fri03/07/23 at 0600, Until Discontinued, Post-op Given 03/07/2023 2:03 PM EDT 5,000 Units Abdomen Right Upper Given 03/07/2023 5:40 AM EDT 5,000 Units A bdomen Right Upper Levothyroxine Sodium (Levoxyl) tab 125 mcg 125 mcg, Oral, [id number], First dose on Fri03/07/23 at 0630, Until Discontinued Given 03/07/2023 5:40 AM EDT 125 mcg magnesium sulfate 1 g in d5w 100mL LOCKED DOSE 1 g, IV Piggyback, PRN Other, Magnesium replacement, Starting on Fri03/06/23 at 1114, Until Fri03/07/23 at 2109, For 4 doses, 1. Serum creatinine must be less than 1.5 2. Current urine output must be greater than 30 mL/hr. Magnesium level 1.5 - 2.2: Give 1 gm over 1 hour x 1 dose Magnesium level less than 1.5: Give 1 gm over 1 hour x 2 doses Repeat serum magnesium level 1 hour after completion of 2nd dose, Post-op montelukast (Singulair) tab 10 mg 10 mg, Oral, QHS, First dose on Fri03/06/23 at 2200, Until Discontinued Given 03/06/2023 9:22 PM EDT 10 mg sertraline (Zoloft) tab 150 mg 150 mg, Oral, Daily(AM), First dose on Fri03/07/23 at 0900, Until Discontinued Given 03/07/2023 9:47 AM EDT 150 mg sodium chloride 0.9 % flush peripheral ana 3 mL 3 mL, IV Push, QSHIFT, First dose on Fri03/06/23 at 1600, Until Discontinued, Do not flush if lock, PICC, or central line not in place; IV infusing or unable to flush., Post-op Given 03/07/2023 9:54 AM EDT 3 mL Given 03/06/2023 3:45 PM EDT 3 mL traMADol (Ultram) tab 50 mg 50 mg, Oral, Q12H PRN Pain, Severe, Starting on Fri03/06/23 at 1114, Until Fri03/07/23 at 2109, Post-op documented in this encounter Active and Recently Administered Medications Times are shown in EDT. Scheduled Medication Order 03/05/2023 03/06/2023 03/07/2023 Acetaminophen (Tylenol) tab 650 mg 650 mg, Oral, Q6H, First dose on Fri03/06/23 at 1200, Last dose on Fri03/11/23 at 0600, For 5 days, Maximum 4 g acetaminophen/day. Avoid in patients with severe hepatic impairment or severe active liver disease. Use for 5 days., Post-op 1200 (Not Given - Provider: Yu Daniel RN - Reason: Parameter(s) Not Met)1800 (Not Given - Provider: Yu Daniel RN - Reason: Parameter(s) Not Met) 0000 (Not Given - Provider: Shanique Santos RN - Reason: Refused-Notify Provider)0540 (Given - Provider: Shanique Santos RN)1200 (Not Given - Provider: Yu Daniel RN - Reason: Parameter(s) Not Met) Allopurinol (Zyloprim) tab 200 mg 200 mg, Oral, HS, First dose on Fri03/06/23 at 2200, Until Discontinued 2121 (Given - Provider: Shanique Santos RN) aspirin enteric coated tab 81 mg 81 mg, Oral, [id number], First dose on Fri03/07/23 at 0630, Until Discontinued 0950 (Given - Provid er: Yu Daniel RN - Comment: pt sleeping) atorvaSTATin (Lipitor) tab 20 mg 20 mg, Oral, [id number], First dose on Fri03/07/23 at 0630, Until Discontinued 52 (Given - Provid er: Yu Daniel RN - Comment: pt sleeping) Bumetanide (Bumex) inj 2 mg (COMPLETED) 2 mg, IV Push, Daily(AM), First dose on Fri03/06/23 at 0930, Last dose on Fri03/06/23 at 0930, For 1 dose, May administer as dispensed over 1 to 5 minutes DO NOT REFRIGERATE, Anesthesia Intra-op 0900 (Given - Provider: Barry Card CRNA - Comment: Allergies reviewed and discussed with surgeon. IV Benadryl given to pre-treat.) Bumetanide (Bumex) inj 2 mg 2 mg, IV Push, BID (0900, 1600), First dose on Fri03/06/23 at 1600, Until Discontinued, May administer as dispensed over 1 to 5 minutes DO NOT REFRIGERATE 1717 (Given - Provider: Yu Daniel, AISHA) 0900 (Given - Provider: Yu Daniel RN - Comment: pyhsicians at bedside)0957 (Given - Provider: Yu Daniel, AISHA)1600 (Due) fluticasone furoate-vilanterol (BREO ellipta) 100-25 MCG/ACT inhaler 1 Puff 1 Puff, Inhalation, Daily(AM), First dose on Fri03/07/23 at 0900, Until Discontinued 0949 (Given - Provid er: Yu Daniel RN) hEParin inj 5,000 Units 5,000 Units, Subcutaneous, Q8H, First dose on Fri03/07/23 at 0600, Until Discontinued, Post-op 0540 (Given - Provid er: Shanique Santos RN)1403 (Given - Provider: Yu Daniel RN) Levothyroxine Sodium (Levoxyl) tab 125 mcg 125 mcg, Oral, [id number], First dose on Fri03/07/23 at 0630, Until Discontinued 0540 (Given - Provid er: Shanique Santos RN) montelukast (Singulair) tab 10 mg 10 mg, Oral, QHS, First dose on Fri03/06/23 at 2200, Until Discontinued 2121 (Given - Provider: Shanique Santos RN) sertraline (Zoloft) tab 150 mg 150 mg, Oral, Daily(AM), First dose on Fri03/07/23 at 0900, Until Discontinued 0947 (Given - Provid er: Yu Daniel RN) sodium chloride 0.9 % flush peripheral ana 3 mL 3 mL, IV Push, QSHIFT, First dose on Fri03/06/23 at 1600, Until Discontinued, Do not flush if lock, PICC, or central line not in place; IV infusing or unable to flush., Post-op 1545 (Given - Provider: Yu Daniel, RN) 0000 (Not Given - Provider: Shanique Santos RN - Reason: Parameter(s) Not Met)0954 (Given - Provider: Yu Daniel RN)1600 (Due) Continuous Medication Order 03/05/2023 03/06/2023 03/07/2023 NSS infusion (CANCELED) Intravenous, at 25 mL/hr, CONTINUOUS, Starting on Fri03/06/23 at 0645, Until Fri03/06/23 at 1758, Pre-Op 0723 (New Bag - Provider: Barry Card CRNA)1050 (Anes Intra-Op Fluid - Provider: Barry Card CRNA)1758 (Finish Infusion - Provider: Shanique Santos RN) PRN Medication Order 03/05/2023 03/06/2023 03/07/2023 albuterol (VENTOLIN HFA/PROVENTIL HFA) inhaler 1 Puff, Inhalation, PRN Dyspnea, Starting on Fri03/06/23 at 1640, Until Fri03/07/23 at 2109, SEND INHALER WITH PATIENT! WASTE INFO ( IF NOT SENT HOME WITH PATIENT) : Return unused medication to pharmacy in zip lock bag for disposal into black container labeled SP. ALPRAZolam (xaNAX) tab 0.5 mg 0.5 mg, Oral, QHS PRN Anxiety, Starting on Fri03/06/23 at 203, Until Fri03/07/23 at 2108 2121 (Given - Provider: Gera Santos, AISHA) magnesium sulfate 1 g in d5w 100mL LOCKED DOSE 1 g, IV Piggyback, PRN Other, Magnesium replacement, Starting on Fri03/06/23 at 1114, Until Fri03/07/23 at 2108, For 4 doses, 1. Serum creatinine must be less than 1.5 2. Current urine output must be greater than 30 mL/hr. Magnesium level 1.5 - 2.2: Give 1 gm over 1 hour x 1 dose Magnesium level less than 1.5: Give 1 gm over 1 hour x 2 doses Repeat serum magnesium level 1 hour after completion of 2nd dose, Post-op traMADol (Ultram) tab 50 mg 50 mg, Oral, Q12H PRN Pain, Severe, Starting on María 03/06/23 at 1114, Until 03/07/23 at 2109, Post-op documented in this encounter Advance Directives Documents on File Type Date Recorded Patient Product Management Internship Expl anation Advance Directives and Living Will 11/29/2022 ADVANCE DIRECTIVE / LIVING WILL Power of Business Planning Analyst 11/29/2022 POWER OF A TTORNEY Advance Directives and Living Will 10/24/2014 ADVANCE DIRECTIVE / LIVING WILL Power of Business Planning Analyst 10/24/2014 POWER OF A TTORNEY Latest [...] Agen t (per Health Care Power of Business Planning Analyst document) Care Teams Regional Sales Consultant Relationship Specialty Start Date End Date Florentin Calvo, DO [address] [place] [address] PCP - General Internal Medicine 03/24/13 documented as of this encounter
--- OUTSIDE RECORDS SUMMARY | 2023-08-14 23:42 | External Medical Summary | Summary of Care ---
Author Name Unknown Organization [facility] Address [address] [place] [address] Phone [phone] Care Team Providers Care Hardware Test Engineer Name Role Phone Florentin Calvo DO Primary Care Provider [phone] Reason for Visit * Reason Comments [facility]: Acute Post op valve s urgery Encounter Details Date Type Department Care Team Description 03/10/2023 Home Visit [facility], [facility] [address] [facility] [place] [address] Karlene Zepeda, RN 132 [facility] [place] [address] Allergies Active Allergy Reactions Severity Noted Date Comments Azithromycin Other (Please comment) 12/04/2021 QTC prolongation at [facility] Celecoxib Hives,Rash High 03/24/2013 Other [...] than 7.0% ([facility]) Use up to 1 times a day. [...] evening. 60 Tablet 5 01/02/2023 Active Ipratropium [place] 0.03 % Nasal Solution Administer 2 Sprays [...] vascular disease) ([facility]),Type 2 diabetes mellitus with stage 3a chronic kidney disease and hypertension ([facility]) TAKE ONE TABLET BY MOUTH EVERY DAY DIRECTED 100 Tablet 1 08/20/2022 08/20/2023 Active Montelukast Sodium 10 MG Oral Tablet (Singulair)Indicati ons:Moderate persistent asthma without complication TAKE ONE TABLET BY MOUTH AT BEDTIME 100 Tablet 3 08/05/2022 08/05/2023 Active OneTouch Delica Plus [id number] USE 2 TIMES A DAY DIRECTED 200 [...] mitral valve clip implantation 03/06 Atherosclerosis of [place] coronary arter y without angina pectoris 02/13/2023 Last Assessment & Plan: Continue statin, sotalol. 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 No-[place] can hear w/ hearing aid 03/07/2023 Are [...] as of this encounter Progress Notes * Karlene Zepeda RN - 03/10/2023 9:42 AM EDT [facility] Steam Service InspectorForder Operator Visit Date: 03/10/2023 Time: 9:42 AM Name: Inga Barakat : 1940 Situation: f/u visit S/P surgical intervention for tricuspid regurgitation Background: 03/06/23 - had MV clip implantation, hx CHF, pulm HTN and paroxysmal afib Dose of torsemide increased prior to d/c home Assessment: Reports has less sob and noticed difference first day post op Wt today 154lbs Wt Readings from Last 7 Encounters: 03/10/23 69.9 kg (154 lb) 03/06/23 73.5 kg (162 lb) 02/20/23 73.2 kg (161 lb 4.8 oz) 02/18/23 73.6 kg (162 lb 4.8 oz) 02/13/23 72.1 kg (159 lb) 02/03/23 72.6 kg (160 lb) 01/31/23 72.6 kg (160 lb 1.6 oz) was taking torsemide 10mg bid prior to surgery Now to take 40mg daily Was unable to take higher dose of torsemide upon coming home b/c pharmacy was closed Has taken torsemide 40mg this morning Is not and has not been taking Jardiance Not wearing CPAP - does not like wearing and does not tolerate it Continues to wear 2lnc qhs bsg was 78 this morning Recent range has been 90's to one teens Problems/Symptoms: Review of Systems Constitutional: Negative. HENT: Negative. Eyes: Negative. Respiratory: Negative. Cardiovascular: Positive for leg swelling (+1 b/l le pitting). Gastrointestinal: Positive for diarrhea (intermittent for several months). Endocrine: Negative. Genitourinary: Negative. Musculoskeletal: Negative. Skin: Positive for wound (R groin cath site without hematoma). Allergic/Immunologic: Negative. Neurological: Positive for weakness (legs d/t deconditioning). Psychiatric/Behavioral: Negative. Physical Exam: BP 116/62 | Pulse 64 | Temp 36.3 C (97.4 F) | Resp 18 | Wt 69.9 kg (154 lb) | SpO2 97% | BMI 25.63 kg/m | BSA 1.79 m Pain 0 Physical Exam HENT: Head: Normocephalic. Mouth/Throat: Mouth: Mucous membranes are moist. Eyes: Extraocular Movements: Extraocular movements intact. Cardiovascular: Rate and Rhythm: Normal rate and regular rhythm. Heart sounds: No murmur heard. Pulmonary: Effort: Pulmonary effort is normal. Breath sounds: Rales (b/l bases) present. Comments: Crackles at the bases bilaterally Abdominal: General: Bowel sounds are normal. Palpations: Abdomen is soft. Musculoskeletal: Cervical back: Neck supple. Right lower leg: Edema present. Left lower leg: Edema present. Comments: Trace pitting edema LE R>L Skin: General: Skin is warm and dry. Neurological: General: No focal deficit present. Mental Status: She is alert and oriented to person, place, and time. Psychiatric: Mood and Affect: Mood normal. Behavior: Behavior normal. Thought Content: Thought content normal. Judgment: Judgment normal. [facility]-10 Completed this Visit: Yes. [facility]-10: Reason Completed: Status post acute event/change in baseline [facility]-10 Interventions: Fall education provided, reviewed/provided Fall brochure Treatment/Plan: 03/06/23 - had valve surgery May be candidate for Cardiac Rehab post recovery O2 2L qhs ordered 02/03/23 O2 is through [facility] [phone] No CPAP - did not tolerate WEAR PERS AT ALL TIMES! - does not like to wear at night d/t cpap - daughter calling company to seeif can get watch version Son will place walker in garage for use Son to install grab bar at garage entrance Daily wts and record DRY WT OF 03/10/23: 154lbs Check and record bsg daily Follows low salt diet Wear support stockings daily if having increased edema Ambulate with Rolator at all times Spare urine cups in home Patient's Goals of Care: Recover from valve surgery Less sob Resolve leg pain and numbness Red Flags: Wt of 164lbs S/s UTI Falls sob Home Interventions Provided: Reinforced current Plan of Care, including self-management and medication regimen Updated Exacerbation Plan Patient Needs to Remember: Call [facility] with red flags Referrals Needed: Other none Follow Up: Patient encouraged to call the intake phone number for all urgent but not emergent issues. Scheduled to follow up with patient April 10 with RNCM Karlene Zepeda RN 03/10/2023 9:42 AM documented in this encounter Plan of Treatment Upcoming Encounters Date Type Specialty Care Team Description 03/14/2023 Office Visit Family Medicine Florentin Calvo DO [address] [place] [address] 03/17/2023 [facility] Visit [facility] [address] 03/19/2023 Imaging Radiology 04/02/2023 Office Visit Vascular Surgery Stephen Wright PA-C [address] [place] [address] 04/07/2023 Office Visit Gastroenterology Janine Cunningham CRNP [address] [facility] [address] 04/07/2023 Laboratory Laboratory Dominick Middleton [address] [place] [address] 04/07/2023 Office Visit Cardiology Emelina Aden CRNP [address] [place] [address] 04/10/2023 Home Visit [facility] [place] [address] [place] [address] 04/11/2023 Office Visit Hematology Oncology Nereyda Metz CRNP [address] [place] [address] 04/16/2023 Office Visit Cardiology Wilbur Rivera MD [address] [place] [address] 05/09/2023 Office Visit Nephrology Rosario Green MD [address] [place] [address] 05/14/2023 Cardiac Studies Cardiac Studies 05/22/2023 Office Visit Ophthalmology Wilbur Benavides DO [address] [place] [address] 05/23/2023 Office Visit Family Medicine Florentin Calvo, [address] [place] [address] 10/24/2023 Office Visit Gynecology Oncology Chris Peng PA-C [address] [place] [address] Health Maintenance Due Date Last Done Comments DIABETES-EYE EXAM 04/11/2023 04/11/2022, , 04/11/2022, Additional history exists Influenza Vaccine (FLU shot) (#1) 2023 05/15/2022, 05/22/2021, 04/19/2020, Additional history exists CKD PHOS USE SMARTSET 01873 05/01/2023 09/0 02/2022, 04/03/2022, 12/05/2020, Additional history exists HbA1c 08/23/2023 02/21/2023, /0 10/2022, 04/03/2022, Additional history exists GFR 09/07/2023 03/07/2023, 02/22, 03/04/2023, Additional history exists TSH 09/24/2023 09/24/2022, 0 10/2022, 02/12/2022, Additional history exists DIABETES-FOOT EXAM 10/01/2023 10/01/2022, 0 10/26/2021, 12/05/2020, Additional history exists Depression Screening, Annual for Pts 12 and Over 02/19/2024 02/18/2023 Albumin/Creatinine Ratio 02/22/2024 023, 05/01/2022, 10/26/2021, Additional history exists CKD HGB USE SMARTSET 47155 03/07/202403/07, 03/06/2023, 03/04/2023, Additional history exists DXA [...] encounter Medical Devices Implanted Type Area Manager Subway Device Identifier Shelf Expiration Date Model / Serial / Lot Cath Thermodilution 6fr - [id number] Implanted:Qty: 1 on 01/24/2023 by Wilbur Rivera MD at [facility] [employer] [id number] 10/15/2024 [id number] / / [id number] documented as of this encounter Advance Directives Documents on File Type Date Recorded 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 Advance Directives and Living Will 11/29/2022 ADVANCE DIRECTIVE / LIVING WILL Power of Lorry Weigher 11/29/2022 POWER OF A TTORNEY Advance Directives and Living Will 10/24/2014 ADVANCE DIRECTIVE / LIVING WILL Power of Lorry Weigher 10/24/2014 POWER OF A TTORNEY Latest Code [...] Agents on File Name Relationship Healthcare Agent [facility] Bright Barakat Adult Child Health Care Agen t (per Health Care Power of Lorry Weigher document) Care Teams Hardware Test Engineer Relationship Specialty Start Date End Date Florentin Calvo, DO [address] [place] [address] PCP - General Internal Medicine 03/24/13 documented as of this encounter
--- OUTSIDE RECORDS SUMMARY | 2023-08-14 23:42 | External Medical Summary ---
Author Name Unknown Address Unknown Organization K01:[facility] [place] [address] [facility] [address] Laboratory Report Ordering Provider Test Date Status ANTONIO EDMONDS 03/14/2023 10:53:05 Final Observation Date Value Abnormality Reference (Units ) Status Ferritin 03/14/2023 10:53:05 441 Above high normal 13 -150 (ng/mL) Final Postmenopausal women have hi gher ferritin levels than pre-menopausal women. The above reference interval is based on pre-menopausal women. Performing Location [facility] [place] [address] [place] [address]
--- OUTSIDE RECORDS SUMMARY | 2023-08-14 23:42 | External Medical Summary | Summary of Care ---
Author Name Unknown Organization [facility] Address [address] [place] [address] Phone [phone] Care Team Providers Care Sulfuric Acid Plant Operator Name Role Phone Florentin Calvo DO Primary Care Provider [phone] Reason for Visit * Reason Onset Date Comments Medication Pre-auth 03/07/2023 Encounter Details Date Type Department Care Team Description 03/07/2023 Telephone Family Practice [address] [facility] [address] [place] [address] Florentin aClvo DO [address] [place] [address] Medication Pre-auth Allergies Active Allergy Reactions Severity Noted Date [...] A1c goal of less than 7.0% ([facility]) Use up to 1 [...] evening. 60 Tablet 5 01/02/2023 Active Ipratropium [place] 0.03 % Nasal Solution Administer 2 Sprays [...] Oral Tablet (Lipitor)Indicatio ns:PVD (peripheral vascular disease) ([facility]),Type 2 diabetes mellitus with stage 3a chronic kidney disease and hypertension ([facility]) TAKE ONE TABLET BY MOUTH EVERY DAY DIRECTED 100 Tablet 1 08/20/2022 3 Active Montelukast Sodium 10 MG Oral Tablet (Singulair)Indicat ions:Moderate persistent asthma without complication TAKE ONE TABLET BY MOUTH AT BEDTIME 100 Tablet 3 08/05/2022 3 Active OneTouch Delica Plus Ulbmuc05S USE 2 TIMES A DAY DIRECTED 200 Each 3 04/30/2022 3 Active Sotalol HCl 80 MG Oral Tablet (Betapace)Indicati ons:Chronic atrial fibrillation (HCC) TAKE ONE-HALF TABLET BY MOUTH EVERY DAY IN THE MORNING AND 1/2 TABLET BEFORE BEDTIME. 90 Tablet 3 04/03/2022 3 Active Sertraline HCl 100 MG Oral Tablet (Zoloft) Take 1.5 Tablets by mouth in the morning. 150 Tablet 1 03/10/2023 Active Sertraline HCl 50 MG Oral Tablet (Zoloft)Indication s:Current moderate episode of major depressive disorder without prior episode (HCC) Take 3 Tablets by mouth in the morning. 100 Tablet 3 03/03/2023 3 Discontinue d(Medicatio n/Dose Changed) documented as of this encounter (statuses as of 03/10/2023) Active Problems Problem Noted Date S/P mitral valve clip implantation 03/06 Atherosclerosis of [place] coronary arter y without angina pectoris 02/13/2023 [...] Obstructive sleep apnea of adult 015 Overview: LEGAL INTERNSHIP Last Assessment & Plan: Now just using [...] Last Assessment & Plan: Followed by cardiology--seen 07/02-andreio unremarkable, echo with preserved systolic function, no [...] encounter Miscellaneous Notes * Telephone Encounter - Angle Ayoub RPh - 03/10/2023 12:44 PM EDT PC to pt to advise. Spoke with Caregiver to advise. Caregiver states pt currently only has 100 mg tabs at home and will begin to give patient 1 and 1/2 tablet for 150 mg dose. Thank you, Angle Ayoub, PharmD Clinical Pharmacist [facility] ([facility]) ([facility]) [phone] 03/10/2023, 12:46 PM * Telephone Encounter - Florentin Calvo DO - 03/10/2023 12:15 PM EDT Medication sent as Sertraline 100 mg 1.5 tablets daily. Please advise the patient * Telephone Encounter - Angle Ayoub RPh - 03/10/2023 11:41 AM EDT Rx is pended for alternative medication that is covered (insurance has quantity limit and will not pay for 3 - 50 mg tablets). Please sign if agreeable and route back to me so I can advise patient. Pending Prescriptions: Disp Refills Sertraline HCl 100 MG Oral Tablet (Zoloft)150 Ta*1 Sig: Take 1.5 Tablets by mouth in the morning. Thank you, Angle Ayoub PharmD Clinical Pharmacist [facility] ([facility]) (formerly [employer]) [phone] 03/10/2023, 11:41 AM * Telephone Encounter - VERONICA Wang - 03/10/2023 11:26 AM EDT Sertraline HCl 50 MG Oral Tablet (Zoloft) This is a new [place] request. Upon review of this prior authorization request, I verified this medication is covered but has a quantity limit. The insurance will cover 1.5 tablets daily. Current SIG: Take 3 Tablets by mouth in the morning. Please advise. Of note, there is nothing currently pending in [facility] for this request. Thank you, Leeanne Lopez [facility] Staffing Associate Detective Youth Bureau [facility] ([facility] [employer]) 03/10/2023,11:26 AM * Telephone Encounter - VERONICA Velazquez - 03/07/2023 8:52 AM EDT [facility] calling to inform doctor that the patient's insurance will not pay for this medication without a completed prior authorization. Did confirm this information with the pharmacy. Pt's current insurance information is as follows: Patient name: Inga Barakat ID number: [id number] BIN number: [id number] PCN number: [id number] Group number: Subscriber name: Inga Barakat Primary or Secondary Insurance:Primary Medication: Sertraline 50mg Reason for Request: Insurance will only cover 1.5 tabs per day Pharmacy and phone number: [facility] [phone] Rx plan and phone number: [phone] What alternative medications does the pharmacy have in stock?: Lara Bruce Matzo Forming Machine Operator III [facility]) 03/07/2023,8:52 AM documented in this encounter Plan of Treatment Upcoming Encounters Date Type Specialty Care Team Description 03/14/2023 Office Visit Family Medicine Florentin Calvo DO [address] [place] [address] 03/17/2023 Office Visit Cardiology [facility] Hewitt DO [address] [facility] [address] 03/19/2023 Imaging Radiology 04/02/2023 Office Visit Vascular Surgery Stephen Wright PA-C [address] [place] [address] 04/07/2023 Office Visit Gastroenterology Janine Cunningham CRNP [address] [facility] [address] 04/07/2023 Laboratory Laboratory [facility] [address] [facility] [address] 04/07/2023 Office Visit Cardiology Emelina Aden CRNP [address] [place] [address] 04/10/2023 Home Visit [facility] Mónica Angeles RN [address] [facility] [place] [address] 04/11/2023 Office Visit Hematology Oncology Nereyda Metz CRNP [address] [place], [place] [address] 04/16/2023 Office Visit Cardiology Wilbur Rivera MD [address] [place] [address] 05/09/2023 Office Visit Nephrology Rosario Green MD [address] [facility] [place] [address] 05/14/2023 Cardiac Studies Cardiac Studies 05/22/2023 Office Visit Ophthalmology Wilbur Benavides DO [address] [facility] [place], [place] [address] 05/23/2023 Office Visit Family Medicine Florentin Calvo DO [address] [place] [address] 10/24/2023 Office Visit Gynecology Oncology Chris Peng PA-C [address] [place] [address] Health Maintenance Due Date Last Done Comments DIABETES-EYE EXAM 04/11/2023 04/11/2022, , 04/11/2022, Additional history exists Influenza Vaccine (FLU shot) (#1) 2023 05/15/2022, 05/22/2021, 04/19/2020, Additional history exists CKD PHOS USE SMARTSET 29874 05/01/202302/2022, 04/03/2022, 12/05/2020, Additional history exists HbA1c 08/23/2023 02/21/2023, 10/2022, 04/03/2022, Additional history exists GFR 09/07/2023 03/07/2023, 02/22, 03/04/2023, Additional history exists TSH 09/24/2023 09/24/2022, 10/2022, 02/12/2022, Additional history exists DIABETES-FOOT EXAM 10/01/2023 10/01/2022, 0 10/26/2021, 12/05/2020, Additional history exists Depression Screening, Annual for Pts 12 and Over 02/19/2024 02/18/2023 Albumin/Creatinine Ratio 02/22/2024 023, 05/01/2022, 10/26/2021, Additional history exists CKD HGB USE SMARTSET 03461 03/07/202403/07, 03/06/2023, 03/04/2023, Additional history exists DXA [...] this encounter Medical Devices Implanted Type Area Innersole Maker Device Identifier Shelf Expiration Date Model / Serial / Lot Cath Thermodilution 6fr - [id number] Implanted:Qty: 1 on 01/24/2023 by Wilbur Rivera MD at [facility] [employer] [id number] 10/15/2024 [id number] / / [id number] documented as of this encounter Advance Directives Documents on File Type Date Recorded 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 Advance Directives and Living Will 11/29/2022 ADVANCE DIRECTIVE / LIVING WILL Power of Account Executive Sales Representative 11/29/2022 POWER OF A TTORNEY Advance Directives and Living Will 10/24/2014 ADVANCE DIRECTIVE / LIVING WILL Power of Account Executive Sales Representative 10/24/2014 POWER OF A TTORNEY Latest [...] Agen t (per Health Care Power of Account Executive Sales Representative document) Care Teams Sulfuric Acid Plant Operator Relationship Specialty Start Date End Date Florentin Calvo, [address] [place] [address] PCP - General Internal Medicine 03/24/13 documented as of this encounter
--- OUTSIDE RECORDS SUMMARY | 2023-08-14 23:42 | External Medical Summary ---
Author Name Unknown Address Unknown Organization K01:[facility] - [address] [facility] [address] Laboratory Report Ordering Provider Test Date Status ANTONIO EDMONDS 03/14/2023 10:53:05 Final Observation Date Value Abnormality Reference (Units ) Status BUN 03/14/2023 10:53:05 47 Above high normal 6-20 (mg/dL) Final Creatinine 03/14/2023 10:53:05 2.0 Above high normal 0.5-1.0 (mg/dL) Final Glomerular filtration rate/1.73 sq M.predicted [Volume Rate/Area] in Serum, Plasma or Blood by Creatinine-based formula (CKD-EPI) 03/14/2023 10:53:05 25 Below low normal >=60 (mL/min) Final eGFR is calculated based on the CKD-EPI 2020 equation SODIUM 03/14/2023 10:53:05 139 135-146 (m mol/L) Final Potassium 03/14/2023 10:53:05 3.8 3.5-5.1 (m mol/L) Final Cl 03/14/2023 10:53:05 98 98-107 (mm ol/L) Final CO2 03/14/2023 10:53:05 26 22-32 (mmo l/L) Final Anion gap 03/14/2023 10:53:05 15 7-15 (mmol /L) Final Glucose 03/14/2023 10:53:05 101 70-120 (mg /dL) Final Albumin 03/14/2023 10:53:05 4.4 3.8-5.0 (g /dL) Final AST (Aspartate aminotransferase) 03/14/2023 10:53:05 62 Above high normal 10-35 (U/L) Final Alk Phos 03/14/2023 10:53:05 178 Above high normal 35 -130 (U/L) Final Bilirubin, Total 03/14/2023 10:53:05 0.4 <=1 .2 (mg/dL) Final Calcium 03/14/2023 10:53:05 9.7 8.4-10.2 ( mg/dL) Final Protein 03/14/2023 10:53:05 6.6 6.0-8.3 (g /dL) Final ALT (Alanine aminotransferase) 03/14/2023 10:53:05 31 10-35 (U/L) Tarik polo Performing Location [facility] - [address] [facility] [address]
--- OUTSIDE RECORDS SUMMARY | 2023-08-14 23:42 | External Medical Summary | Summary of Care ---
Author Name Unknown Organization [facility] Address [address] [place] [address] Phone [phone] Care Team Providers Care Health Consultant Name Role Phone Florentin Calvo DO Primary Care Provider [phone] Reason for Referral * Evaluate & Treat - Unlimited Visits (Within 10 days (routine)) - Authorized Specialty Diagnoses / Procedures Referred By Contac t Referred To Contact Physical Therapy / Physical Medicine And Rehab Diagnoses Ambulatory dysfunction Leg weakness, bilateral DDD (degenerative disc disease), lumbar Bilateral arm weakness Florentin Calvo DO [address] [place] [address] Referral ID Status Reason Start Date Expiration Date Visits Requested Visits Authorized [id number] Authorized Specialty Services Required 03/14/2023 999 999 Question Answer Referral Priority Within 10 days (routine) Reason for Visit * Reason Onset Date Comments Hospital Follow-Up Hospital Follow-Up 03/14/2023 Encounter Details Date Type Department Care Team Description 03/14/2023 Office Visit Family Practice [address] [facility] [place] [address] [place] [phone] Florentin Calvo DO [address] [place] [address] S/P mitral valve clip implantation*; Atherosclerosis of [place] coronary artery of [place] heart without angina pectoris; Type 2 diabetes mellitus with stage 3b chronic kidney disease, without long-term current use of insulin (HCC); Ambulatory dysfunction; Leg weakness, bilateral; DDD (degenerative disc disease), lumbar; Paroxysmal atrial fibrillation (HCC); Secondary hyperparathyroidism, renal (HCC); Pulmonary hypertension (HCC); Chronic diastolic CHF (congestive heart failure) ([facility]); Acquired hypothyroidism; Obstructive sleep apnea of adult; Tremor; Iron deficiency anemia, unspecified iron deficiency anemia type; Moderate persistent asthma without complication; Gastro-esophageal reflux disease without esophagitis; Pure hypercholesterolemia; Cardiac pacemaker in situ; History of endometrial cancer; History of TIA (transient ischemic attack); Bilateral arm weakness; Hospital discharge follow-up Allergies Active Allergy Reactions Severity Noted Date [...] as of this encounter (statuses as of 03/14/2023) Medications Medication Sig Dispensed Refills Start Date [...] evening. 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: Now just [...] as of this encounter (statuses as of 03/14/2023) Resolved Problems Problem Noted Date Resolved Date [...] as of this encounter (statuses as of 03/14/2023) Immunizations Name Administration Dates Next Due COVID-19 [...] Sign Reading Time Taken Comments Blood Pressure 110/64 03/14/2023 10:07 AM EDT Pulse 62 03/14/2023 10:07 AM EDT Temperature 34.9 C (94.9 F) 03/14/2023 1 0:07 AM EDT Respiratory Rate 14 03/14/2023 10:0 7 AM EDT Oxygen Saturation 99% 03/14/2023 10: 07 AM EDT Inhaled Oxygen Concentration - - Weight 69.4 kg (152 lb 14.4 oz) 023 10:07 AM EDT Height 165.1 cm (5' 5") 03/14/2023 10:0 7 AM EDT Body Mass Index 25.44 03/14/2023 10:07 AM EDT documented in this encounter Functional Status Functional Status Response Date of Assess ment Are you deaf or do you have serious difficulty hearing? No-ALTURAS can hear w/ hearing aid 03/07/2023 Are [...] as of this encounter Progress Notes * Hilda Awad LPN - 03/14/2023 10:53 AM EDT LAB DRAWN AND SENT TO [facility]. * Florentin Calvo DO - 03/14/2023 10:23 AM EDT SUBJECTIVE: Inga Barakat is a 82 year old female. Chief Complaint Patient presents with Hospital Follow-Up Hospital Follow-Up Recent Admission: Patient was recently admitted to [facility]. The date of discharge was 03/07/2023. Discharge report received and reviewed. HPI: Patient is an 82 year old female with a history of Atrial Fibrillation, Pacemaker Implant, Severe Mitral Valve Regurgitation, Severe Tricuspid Regurgitation, Pulmonary HTN, CKD stage III, Lumbar Spinal Stenosis, PVD of the right lower extremity, Depression, Cervical Spinal Fusion, Asthma, Essential tremor, Adenocarcinoma of the Uterus treated with hysterectomy, Iron Deficiency Anemia, Chronic Diastolic CHF, and bilateral hearing loss that is seen for hospital follow up. The patient had mitral valve clip implantation. Torsemide was increased to 40 mg daily as well. Shortness of breath has resolved. No chest pain is present. The patient has generalized weakness, difficulty getting out of chairs and leg weakness. The patient is wearing oxygen at night. She can no longer tolerate BiPAP Patient Active Problem List Diagnosis Code Type 2 diabetes mellitus with hemoglobin A1c goal of less than 7.0% ([facility]) E11.9 Vertigo R42 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 claudication M48.061 Hypothyroidism E03.9 Displacement of cervical intervertebral disc without myelopathy M50.20 Meniere's disease H81.09 Paroxysmal atrial fibrillation (HCC) I48.0 Obstructive sleep apnea of adult G47.33 Tremor R25.1 Iron deficiency anemia D50.9 Angiodysplasia of colon with hemorrhage K55.21 Acquired renal cyst N28.1 Controlled substance agreement signed Z79.899 Type 2 diabetes mellitus with polyneuropathy ([facility]) E11.42 Secondary hyperparathyroidism, renal ([facility]) N25.81 Pulmonary hypertension ([facility]) I27.20 Current moderate episode of major depressive disorder without prior episode ([facility]) F32.1 Moderate persistent asthma without complication J45.40 Gastro-esophageal reflux disease without esophagitis K21.9 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 ([facility]) E11.319 Pure hypercholesterolemia E78.00 Aneurysm of left carotid artery ([facility]) I72.0 Aortic atherosclerosis ([facility]) I70.0 Chronic kidney disease, stage 3b ([facility]) N18.32 PVD (peripheral vascular disease) ([facility]) I73.9 Chronic diastolic CHF (congestive heart failure) ([facility]) I50.32 Type 2 diabetes mellitus with stage 3b chronic kidney disease, without long- term current use ofinsulin ([facility]) E11.22, N18.32 Cardiac pacemaker in situ Z95.0 History of endometrial cancer Z85.42 Normocytic anemia D64.9 Primary osteoarthritis of right knee M17.11 Severe tricuspid regurgitation I07.1 History of TIA (transient ischemic attack) Z86.73 Atherosclerosis of savoonga coronary artery without angina pectoris I25.10 S/P mitral valve clip implantation Z98.890, Z95.818 Current Outpatient Medications Medication Sig Dispense Refill ferrous sulfate (FEOSOL) 325 (65 FE) MG Tablet Take 1 Tab by mouth 2 times a day. 180 Tab 1 Aspirin 81 MG Oral Tablet Delayed Release [...] in the evening. 60 Tablet 5 Ipratropium Sherrill 0.03 % Nasal Solution Administer 2 Sprays [...] TAKE ONE TABLET BY MOUTH EVERY DAY [id number] Tablet 1 Montelukast Sodium 10 MG Oral Tablet (Singulair) TAKE ONE TABLET BY MOUTH AT BEDTIME 100 Tablet3 Sotalol HCl 80 MG Oral Tablet (Betapace) TAKE ONE-HALF TABLET BY MOUTH EVERY DAY IN THE MORNINGAND 1/2 TABLET BEFORE BEDTIME. 90 Tablet 3 Torsemide 40 MG Oral Tablet Take 40 mg by mouth in the morning. 30 Tablet 2 Sertraline HCl 100 MG Oral Tablet (Zoloft) Take 1.5 Tablets by mouth in the morning. 150 Tablet1 [employer] Verio w/Device Kit Use up to 1 times a day. E11.9 1 Kit 0 Moki - formerly MokiMobilityTouch Verio In Vitro Strip (Glucose Blood) Test blood sugars up to 2 times a day E11.9 200 Strip 3 OneTouch Delica Plus [id number] USE 2 TIMES A DAY DIRECTED 200 [...] JESS Meneses 2.5 mg at 10/31/22 1441 Current and discharge medications have been reconciled. Review of patient's allergies indicates: Allergen Reactions [...] Other (Please comment) QTC prolongation at [facility] Nickel Swelling Other reaction(s): Unknown OBJECTIVE: BP 110/64 | Pulse 62 | Temp (!) 34.9 C (94.9 F) (Tympanic) | Resp 14 | Ht 1.651 m (5' 5") | Wt 69.4 kg (152 lb 14.4 oz) | SpO2 99% | BMI 25.44 kg/m | BSA 1.78 m REVIEW OF SYSTEMS: Review of Systems Constitutional: Negative for appetite change, fatigue and unexpected weight change. Respiratory: Negative for cough, shortness of breath and wheezing. Cardiovascular: Negative for chest pain, palpitations and leg swelling. Gastrointestinal: Negative for abdominal pain, blood in stool, nausea and vomiting. Genitourinary: Negative for dysuria and hematuria. Musculoskeletal: Positive for back pain and gait problem. Neurological: Positive for weakness. Negative for dizziness, syncope and headaches. Psychiatric/Behavioral: Negative for confusion, decreased concentration and sleep disturbance. PHYSICAL EXAM: BP 110/64 | Pulse 62 | Temp (!) 34.9 C (94.9 F) (Tympanic) | Resp 14 | Ht 1.651 m (5' 5") | Wt 69.4 kg (152 lb 14.4 oz) | SpO2 99% | BMI 25.44 kg/m | BSA 1.78 m Physical Exam Vitals and nursing note reviewed. Constitutional: General: She is not in acute distress. Appearance: She is not toxic-appearing. HENT: Head: Normocephalic and atraumatic. Cardiovascular: Rate and Rhythm: Normal rate and regular rhythm. Heart sounds: Murmur heard. Systolic murmur is present. No gallop. Pulmonary: Effort: Pulmonary effort is [...] time. Mental status is at baseline. Motor: Weakness present. Gait: Gait abnormal. Psychiatric: Mood and Affect: Mood normal. Behavior: Behavior normal. Thought Content: Thought content normal. ASSESSMENT/PLAN S/P mitral valve clip implantation (Primary) Atherosclerosis of [place] coronary artery of [place] heart without angina pectoris - COMPREHENSIVE METABOLIC PANEL; Future; Expected date: 03/14/2023 - CBC WITH WBC DIFFERENTIAL; Future; Expected date: 03/14/2023 - COMPREHENSIVE METABOLIC PANEL - CBC WITH WBC DIFFERENTIAL Type 2 diabetes mellitus with stage 3b chronic kidney disease, without long-term current use of insulin (HCC) Diet controlled Ambulatory dysfunction - PHYSICAL THERAPY REFERRAL OP Leg weakness, bilateral - PHYSICAL THERAPY REFERRAL OP DDD (degenerative disc disease), lumbar - PHYSICAL THERAPY REFERRAL OP Paroxysmal atrial fibrillation (HCC) Continue Sotalol No anticoagulation due to GI bleeding Secondary hyperparathyroidism, renal (HCC) Pulmonary hypertension (HCC) Chronic diastolic CHF (congestive heart failure) (HCC) Continue Torsemide Continue to follow with Cardiology Acquired hypothyroidism Continue Levothyroxine Obstructive sleep apnea of adult Continue Nocturnal Oxygen BiPAP intolerant Tremor Iron deficiency anemia, unspecified iron deficiency anemia type - CBC WITH WBC DIFFERENTIAL; Future; Expected date: 03/14/2023 - IRON SCREEN, INCLUDING TIBC; Future; Expected date: 03/14/2023 - FERRITIN; Future; Expected date: 03/14/2023 - CBC WITH WBC DIFFERENTIAL - IRON SCREEN, INCLUDING TIBC - FERRITIN Continue Ferrous Sulfate Moderate persistent asthma without complication Continue Advair, Montelukast and Albuterol Gastro-esophageal reflux disease without esophagitis Continue Pantoprazole Pure hypercholesterolemia Continue Atorvastatin Cardiac pacemaker in situ History of endometrial cancer Treated with Hysterectomy History of TIA (transient ischemic attack) Bilateral arm weakness - PHYSICAL THERAPY REFERRAL OP Hospital discharge follow-up - DISCH MED RECON CUR MED LIS Follow Up: Return in about 2 weeks (around 03/28/2023), or if symptoms worsen or fail to improve. Florentin Calvo DO documented in this encounter Nursing Notes * Hilda Awad LPN - 03/14/2023 10:02 AM EDT Here for post op, feels well. Isn't using c pap, HATES IT. documented in this encounter Plan of Treatment Upcoming Encounters Date Type Specialty Care Team Description 03/17/2023 Office Visit Cardiology Stephen Hewitt DO [address] [place] [address] 03/19/2023 Imaging Radiology 04/01/2023 Office Visit Family Medicine Florentin Calvo DO [address] [place] [address] 04/02/2023 Office Visit Vascular Surgery Stephen Wright PA-C [address] [place] [address] 04/07/2023 Office Visit Gastroenterology Janine Cunningham CRNP [address] [place] [address] 04/07/2023 Laboratory Laboratory Dominick Middleton [address] [place] [address] 04/07/2023 Office Visit Cardiology Emelina Aden CRNP [address] [place] [address] 04/10/2023 Home Visit [facility] [place] [address] [place] [address] 04/11/2023 Office Visit Hematology Oncology Nereyda Metz CRNP [address] [place] [address] 04/16/2023 Office Visit Cardiology Wilbur Rivera MD [address] [place] [address] 05/09/2023 Office Visit Nephrology Rosario Green MD [address] [place] [address] 05/14/2023 Cardiac Studies Cardiac Studies 05/22/2023 Office Visit Ophthalmology Wilbur Benavides DO [address] [place] [address] 05/23/2023 Office Visit Family Medicine Florentin Calvo DO [address] [place] [address] 10/24/2023 Office Visit Gynecology Oncology Chris Peng PA-C [address] [place], [place] [id number] Pending Results Name Type Priority Associated Diagnoses Date /Time COMPREHENSIVE METABOLIC PANEL Lab Routine Atherosclerosis of [place]ong[place] coronary artery of [place] heart without angina pectoris 03/14/2023 10:53 AM EDT CBC WITH WBC DIFFERENTIAL Lab Routine Atherosclerosis of [place] coronary artery of [place] heart without angina pectoris Iron deficiency anemia, unspecified iron deficiency anemia type 03/14/2023 10:53 AM EDT IRON SCREEN, INCLUDING TIBC Lab Routine Iron deficiency anemia, unspecified iron deficiency anemia type 03/14/2023 10:53 AM EDT FERRITIN Lab Routine Iron deficiency anemia, unspecified iron deficiency anemia type 03/14/2023 10:53 AM EDT CBC Lab Routine Atherosclerosis of [place] coronary artery of [place] heart without angina pectoris Iron deficiency anemia, unspecified iron deficiency anemia type 03/14/2023 10:53 AM EDT DIFFERENTIAL, AUTOMATED Lab Routine Atherosclerosis of [place] coronary artery of [place] heart without angina pectoris Iron deficiency anemia, unspecified iron deficiency anemia type 03/14/2023 10:53 AM EDT Scheduled Orders Name Type Priority Associated Diagnoses Orde r Schedule COMPREHENSIVE METABOLIC PANEL Lab Routine Atherosclerosis of [place] coronary artery of [place] heart without angina pectoris Expected: 03/14/2023 (Approximate), Expires: 03/13/2024 CBC WITH WBC DIFFERENTIAL Lab Routine Atherosclerosis of [place]ong[place] coronary artery of [place] heart without angina pectoris Iron deficiency anemia, unspecified iron deficiency anemia type Expected: 03/14/2023 (Approximate), Expires: 03/14/2024 IRON SCREEN, INCLUDING TIBC Lab Routine Iron deficiency anemia, unspecified iron deficiency anemia type Expected: 03/14/2023 (Approximate), Expires: 03/13/2024 FERRITIN Lab Routine Iron deficiency anemia, unspecified iron deficiency anemia type Expected: 03/14/2023 (Approximate), Expires: 03/13/2024 Scheduled Referrals Name Type Priority Associated Diagnoses Orde r Schedule PHYSICAL THERAPY REFERRAL OP Referral Within 10 days (routine) Ambulatory dysfunction Leg weakness, bilateral DDD (degenerative disc disease), lumbar Bilateral arm weakness Ordered: 03/14/2023 Health Maintenance Due Date Last Done Comments DIABETES-EYE EXAM 04/11/2023 04/11/2022, , 04/11/2022, Additional history exists Influenza Vaccine (FLU shot) (#1) 2023 05/15/2022, 05/22/2021, 04/19/2020, Additional history exists CKD PHOS USE SMARTSET 75113 05/01/2023 09/0 02/2022, 04/03/2022, 12/05/2020, Additional history exists HbA1c 08/23/2023 02/21/2023, 01/0 10/2022, 04/03/2022, Additional history exists GFR 09/07/2023 03/07/2023, 07/10/2022, 03/04/2023, Additional history exists TSH 09/24/2023 09/24/2022, 01/0 10/2022, 02/12/2022, Additional history exists DIABETES-FOOT EXAM 10/01/2023 10/01/2022, 0 10/26/2021, 12/05/2020, Additional history exists Depression Screening, Annual for Pts 12 and Over 02/19/2024 02/18/2023 Albumin/Creatinine Ratio 02/22/2024 023, 05/01/2022, 10/26/2021, Additional history exists CKD HGB USE SMARTSET 11451 03/07/202403/07, 03/06/2023, 03/04/2023, Additional history exists DXA [...] this encounter Medical Devices Implanted Type Area Epilepsy Physician Device Identifier Shelf Expiration Date Model / Serial / Lot Cath Thermodilution 6fr - [id number] Implanted:Qty: 1 on 01/24/2023 by Wilbur Rivera MD at [facility] [place] [employer] [id number] 10/15/2024 [id number] / / [id number] Mirtaclip G4 - [id number] Implanted:Qty: 1 on 03/10/2023 at [facility] [employer] 11/19/2023 [id number] / / [id number] documented as of this encounter Visit Diagnoses Diagnosis S/P mitral valve clip implantation- Primary Atherosclerosis of [place]ong[place] coronary artery of [place] heart without angina pectoris Type 2 diabetes mellitus with stage 3b chronic kidney disease, without long-term current use of insulin (HCC) Ambulatory dysfunction Leg weakness, bilateral Other musculoskeletal symptoms referable to limbs DDD (degenerative disc disease), lumbar Degeneration of lumbar or lumbosacral intervertebral disc Paroxysmal atrial fibrillation (HCC) Atrial fibrillation Secondary hyperparathyroidism, renal (HCC) Secondary hyperparathyroidism (of renal origin) Pulmonary hypertension (HCC) Other chronic pulmonary heart diseases Chronic diastolic CHF (congestive heart failure) (HCC) Chronic diastolic heart failure Acquired hypothyroidism Unspecified hypothyroidism Obstructive sleep apnea of adult Obstructive sleep apnea (adult) (pediatric) Tremor Abnormal involuntary movements Iron deficiency anemia, unspecified iron deficiency anemia type Moderate persistent asthma without complication Unspecified asthma Gastro-esophageal reflux disease without esophagitis Esophageal reflux Pure hypercholesterolemia Cardiac pacemaker in situ History of endometrial cancer Personal history of malignant neoplasm of other parts of uterus History of TIA (transient ischemic attack) Transient ischemic attack (TIA), and cerebral infarction without residual deficits Bilateral arm weakness Other musculoskeletal symptoms referable to limbs Hospital discharge follow-up Other follow-up examination documented in this encounter Advance Directives Documents on File Type Date Recorded Patient Joint Supervisor Expl anation Advance Directives and Living Will 11/29/2022 ADVANCE DIRECTIVE / LIVING WILL Power of Orthodontic Band Maker 11/29/2022 POWER OF A TTORNEY Advance Directives and Living Will 10/24/2014 ADVANCE DIRECTIVE / LIVING WILL Power of Orthodontic Band Maker 10/24/2014 POWER OF A TTORNEY Latest [...] Agen t (per Health Care Power of Orthodontic Band Maker document) Care Teams Health Consultant Relationship Specialty Start Date End Date Florentin Calvo, DO [address] [place] [address] PCP - General Internal Medicine 03/24/13 documented as of this encounter
--- OUTSIDE RECORDS SUMMARY | 2023-08-14 23:42 | External Medical Summary | Summary of Care ---
Author Name Unknown Organization [facility] Address [address] [place] [address] Phone [phone] Care Team Providers Care [facility] Name Role Phone Florentin Calvo DO Primary Care Provider [phone] Reason for Visit * Reason Onset Date Comments Appointment 03/10/2023 Hosp f/u Encounter Details Date Type Department Care Team Description 03/10/2023 Telephone Family Practice [facility] [address] [place] [address] Florentin Calvo DO [address] [place] [address] Appointment (Hosp f/u) Allergies Active [...] than 7.0% ([facility]) Use up to 1 times a [...] evening. 60 Tablet 5 01/02/2023 Active Ipratropium Durham 0.03 % Nasal Solution Administer 2 Sprays [...] vascular disease) ([facility]),Type 2 diabetes mellitus with stage 3a chronic kidney disease and hypertension ([facility]) TAKE ONE TABLET BY MOUTH EVERY DAY DIRECTED 100 Tablet 1 08/20/2022 08/20/2023 Active Montelukast Sodium 10 MG Oral Tablet (Singulair)Indicati ons:Moderate persistent asthma without complication TAKE ONE TABLET BY MOUTH AT BEDTIME 100 Tablet 3 08/05/2022 08/05/2023 Active OneTouch Delica Plus [id number] USE 2 TIMES A DAY DIRECTED 200 [...] mitral valve clip implantation 03/06 Atherosclerosis of yu[place]iat[place] coronary arter y without angina pectoris 02/13/2023 [...] Obstructive sleep apnea of adult 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 * Telephone Encounter - RADHA Cohen - 03/10/2023 8:16 AM EDT Pts daughter, [...] Visit Family Medicine Florentin Calvo DO [address] [place] [address] 03/17/2023 Office Visit Cardiology Stephen Hewitt DO [address] [place] [address] 03/19/2023 Imaging Radiology 04/02/2023 Office Visit Vascular Surgery Stephen Wright PA-C [address] [facility] [place] [address] 04/07/2023 Office Visit Gastroenterology Janine Cunningham CRNP [address] [place] [address] 04/07/2023 Laboratory Laboratory Dominick Middleton [address] [place] [address] 04/07/2023 Office Visit Cardiology Emelina Aden CRNP [address] [place] [address] 04/11/2023 Office Visit Hematology Oncology Nereyda Metz CRNP [address] [place], [place] [id number] 04/16/2023 Office Visit Cardiology Wilbur Rivera MD [address] [place] [address] 05/09/2023 Office Visit Nephrology Rosario Green MD [address] [place] [address] 05/14/2023 Cardiac Studies Cardiac Studies 05/22/2023 Office Visit Ophthalmology Wilbur Benavides DO [address] [facility] [place], [place] [id number] 05/23/2023 Office Visit Family Medicine Florentin Calvo DO [address] [place] [address] 10/24/2023 Office Visit Gynecology Oncology Chris Peng PA-C [address] [place], [place] [phone] Health Maintenance Due Date Last Done Comments DIABETES-EYE EXAM 04/11/2023 04/11/2022, , 04/11/2022, Additional history exists Influenza Vaccine (FLU shot) (#1) 2023 05/15/2022, 05/22/2021, 04/19/2020, Additional history exists CKD PHOS USE SMARTSET 82174 05/01/2023 09/0 02/2022, 04/03/2022, 12/05/2020, Additional history [...] Additional history exists CKD HGB USE SMARTSET 18212 03/07/202403/07, 03/06/2023, 03/04/2023, Additional history exists DXA [...] this encounter Medical Devices Implanted Type Area Watch Engine Operator Device Identifier Shelf Expiration Date Model / Serial / Lot Cath Thermodilution 6fr - [id number] Implanted:Qty: 1 on 01/24/2023 by Wilbur Rivera MD at [facility] [place] [employer] [id number] 10/15/2024 [id number] / / [id number] documented as of this encounter Advance Directives Documents on File Type Date Recorded Patient Posting Clerk Expl anation Advance Directives and Living Will 11/29/2022 ADVANCE DIRECTIVE / LIVING WILL Power of Small Products I Assembler 11/29/2022 POWER OF A TTORNEY Advance Directives and Living Will 10/24/2014 ADVANCE DIRECTIVE / LIVING WILL Power of Small Products I Assembler 10/24/2014 POWER OF A TTORNEY Latest Code [...] Agen t (per Health Care Power of Small Products I Assembler document) Care Teams [facility] Relationship Specialty Start Date End Date Florentin Calvo, DO [address] [place] [address] PCP - General Internal Medicine 03/24/13 documented as of this encounter
--- OUTSIDE RECORDS SUMMARY | 2023-08-14 23:43 | External Medical Summary ---
Author Name Unknown Address Unknown Organization : Laboratory Report Ordering Provider Test Date Status ZAHRA DEMPSEY 03/06/2023 09:23:59 Final NORMAL (NON-HEPARINIZED) 74- 137 SECONDS
HEPARINIZED 200+ SECONDS
CRITICAL GREATER THAN 1000 SECONDS
null Observation Date Value Abnormality Reference (Units ) Status Kaolin activated time [Units/volume] in Blood 03/06/2023 09:23:59 269 50-1000 (secs) Final Performing Location
--- OUTSIDE RECORDS SUMMARY | 2023-08-14 23:43 | External Medical Summary ---
Author Name Unknown Address Unknown Organization : Laboratory Report Ordering Provider Test Date Status ZAHRA DEMPSEY 03/06/2023 09:44:53 Final NORMAL (NON-HEPARINIZED) 74- 137 SECONDS
HEPARINIZED 200+ SECONDS
CRITICAL GREATER THAN 1000 SECONDS
null Observation Date Value Abnormality Reference (Units ) Status Kaolin activated time [Units/volume] in Blood 03/06/2023 09:44:53 317 50-1000 (secs) Final Performing Location
--- OUTSIDE RECORDS SUMMARY | 2023-08-14 23:43 | External Medical Summary ---
Author Name Unknown Address Unknown Organization [id number]:LABORATORY [facility] [place] - [address] [facility] [address] Laboratory Report Ordering Provider Test Date Status HOMA PARRISH 03/07/2023 04:14:00 Final Observation Date Value Abnormality Reference (Units ) Status WBC, Total 03/07/2023 04:14:00 10.52 4.00-10.80 (K/uL) Final RBC 03/07/2023 04:14:00 2.97 3.85-5.15 (M/uL) Final Hemoglobin 03/07/2023 04:14:00 8.8 Below low normal 12.0-15.3 (g/dL) Final HCT 03/07/2023 04:14:00 28.2 Below low normal 36.0-45.2 (%) Final MCV 03/07/2023 04:14:00 94.9 81.5-97.5 (fL) Final MCH 03/07/2023 04:14:00 29.6 27.0-34.0 (pg) Final MCHC 03/07/2023 04:14:00 31.2 32.0-36.0 (g/dL) Final RDW 03/07/2023 04:14:00 16.9 11.5-15.5 (%) Final Platelets 03/07/2023 04:14:00 164 140-400 (K/uL) Final MPV 03/07/2023 04:14:00 10.5 6.6-11.1 (fL) Final Nucleated erythrocytes/100 leukocytes [Ratio] in Blood by Automated count 03/07/2023 04:14:00 0 <=0 (/100 WBCs) Final Performing Location LABORATORY [facility] [place] - [address] [facility] [address]
--- OUTSIDE RECORDS SUMMARY | 2023-08-14 23:43 | External Medical Summary ---
Author Name Unknown Address Unknown Organization [id number]:LABORATORY [facility] [place] - [address] [place] [address] Laboratory Report Ordering Provider Test Date Status HOMA PARRISH 03/07/2023 04:14:00 Final Observation Date Value Abnormality Reference (Units ) Status BUN 03/07/2023 04:14:00 38 Above high normal 6-20 (mg/dL) Final Creatinine 03/07/2023 04:14:00 1.5 Above high normal 0.5-1.0 (mg/dL) Final Glomerular filtration rate/1.73 sq M.predicted [Volume Rate/Area] in Serum, Plasma or Blood by Creatinine-based formula (CKD-EPI) 03/07/2023 04:14:00 34 Below low normal >=60 (mL/min) Final eGFR is calculated based on the CKD-EPI 2020 equation SODIUM 03/07/2023 04:14:00 139 135-146 (m mol/L) Final Potassium 03/07/2023 04:14:00 4.0 3.5-5.1 (m mol/L) Final Cl 03/07/2023 04:14:00 104 98-107 (mm ol/L) Final CO2 03/07/2023 04:14:00 23 22-32 (mmo l/L) Final Anion gap 03/07/2023 04:14:00 12 7-15 (mmol /L) Final Glucose 03/07/2023 04:14:00 117 70-120 (mg /dL) Final Calcium 03/07/2023 04:14:00 9.0 8.4-10.2 ( mg/dL) Final Performing Location LABORATORY [facility] [place] - [address] [place] [address]
--- OUTSIDE RECORDS SUMMARY | 2023-08-14 23:43 | External Medical Summary | Summary of Care ---
Author Name Unknown Organization [facility] Address [address] [place] [address] Phone [phone] Care Team Providers Care Circle Edger Name Role Phone Florentin Calvo DO Primary Care Provider [phone] Encounter Details Date Type Department Care Team Description 03/07/2023 Result Scan Unspecified Department Stephen Hewitt DO [address] [facility] [place] [address] <No scans attached> Allergies Active Allergy Reactions Severity Noted Date Comments Azithromycin Other (Please comment) 12/04/2021 QTC prolongation at [facility] Celecoxib Hives,Rash High 03/24/2013 Other reaction(s): Rash/Hives/Itching. [...] as of this encounter (statuses as of 03/07/2023) Medications Medication Sig Dispensed Refills Start Date End Date Status ferrous sulfate (FEOSOL) 325 (65 FE) MG Tablet Take 1 Tab by mouth 2 times a day. 180 Tab 1 09/21/2019 Suspended Additional Information OneTouch Verio w/Device KitIndications:Typ e 2 diabetes mellitus with hemoglobin A1c goal of less than 7.0% ([facility]) Use up to 1 times a day. E11.9 1 Kit 0 06/19/2021 Suspended Additional Information Aspirin 81 MG Oral Tablet Delayed Release Take 1 Tablet by mouth daily. 0 Suspended Acetaminophen 325 MG Oral Tablet (Tylenol) Take 2 Tablets by mouth every 6 hours as needed. 100 Tablet 0 12/04/2021 Suspended Vitamin D3 50 MCG (2000 UT) Oral CapsuleIndications :Vitamin D deficiency Take 2 Capsules by mouth in the morning. 60 Capsule 5 04/04/2022 Suspended Levalbuterol Tartrate 45 MCG/ACT Inhalation Aerosol (Xopenex HFA)Indications:As thma with severity to be determined Inhale by mouth 1 Puff every 4 hours as needed for Wheezing. 15 g 12 06/13/2022 Suspended Additional Information Allopurinol 100 MG Oral Tablet (Zyloprim)Indicati ons:Gout, arthropathy Take 2 Tablets by mouth at bedtime. 60 Tablet 11 10/03/2022 Suspended Additional Information Polyethylene Glycol 3350 17 GM Oral Packet Take 1 Packet by mouth daily as needed for Constipation. 0 Suspended Fluticasone-Salmet wero 250-50 MCG/ACT Inhalation Aerosol Powder Breath Activated (Advair Diskus) Inhale 1 Puff by mouth in the morning and 1 Puff before bedtime. 60 Each 2 12/12/2022 Suspended Additional Information Mireya Verflorinda In Vitro Strip (Glucose Blood) Test blood sugars up to 2 times a day E11.9 200 Strip 3 12/20/2022 Suspended Additional Information Pantoprazole Sodium 40 MG Oral Tablet Delayed Release (Protonix) Take 1 Tablet by mouth in the morning and 1 Tablet in the evening. 60 Tablet 5 01/02/2023 Suspended Additional Information Ipratropium Alsey 0.03 % Nasal Solution Administer 2 Sprays into nostril in the morning and 2 Sprays before bedtime. 0 Suspended Vitamin B-12 100 MCG Oral Tablet (vitamin B-12) Take 1 Tablet by mouth in the morning. 30 Tablet 3 02/13/2023 Suspended Folic Acid 1 MG Oral TabletIndications: Chronic atrial fibrillation (HCC) TAKE ONE TABLET BY MOUTH EVERY MORNING 100 Tablet 1 02/03/2023 4 Suspended Additional Information Torsemide 10 MG Oral Tablet (Demadex)Indicatio ns:Chronic diastolic heart failure due to valvular disease ([facility]) TAKE ONE TABLET BY MOUTH EVERY MORNING AND 1 TABLET 4-5 HOURS LATER 100 Tablet 3 01/31/2023 4 Suspended Additional Information Levothyroxine Sodium 125 MCG Oral Tablet (Levoxyl) TAKE ONE TABLET BY MOUTH FIRST THING IN THE MORNING 100 Tablet 1 01/31/2023 4 Suspended Additional Information ALPRAZolam 0.5 MG Oral Tablet (xaNAX)Indications :Persistent insomnia,Anxiety TAKE ONE TABLET BY MOUTH AT BEDTIME NEEDED FOR SLEEP OR ANXIETY USES HALF OF A TABLET NEEDED FOR ANXIETY AND SLEEP 90 Tablet 0 01/17/2023 3 Suspended Additional Information Atorvastatin Calcium 20 MG Oral Tablet (Lipitor)Indicatio ns:PVD (peripheral vascular disease) ([facility]),Type 2 diabetes mellitus with stage 3a chronic kidney disease and hypertension (HCC) TAKE ONE TABLET BY MOUTH EVERY DAY DIRECTED 100 Tablet 1 08/20/2022 3 Suspended Additional Information Montelukast Sodium 10 MG Oral Tablet (Singulair)Indicat ions:Moderate persistent asthma without complication TAKE ONE TABLET BY MOUTH AT BEDTIME 100 Tablet 3 08/05/2022 3 Suspended Additional Information OneTouch Delica Plus [id number] USE 2 TIMES A DAY DIRECTED 200 Each 3 04/30/2022 3 Suspended Additional Information Sotalol HCl 80 MG Oral Tablet (Betapace)Indicati ons:Chronic atrial fibrillation (HCC) TAKE ONE-HALF TABLET BY MOUTH EVERY DAY IN THE MORNING AND 1/2 TABLET BEFORE BEDTIME. 90 Tablet 3 04/03/2022 3 Suspended Additional Information Sertraline HCl 50 MG Oral Tablet (Zoloft)Indication s:Current moderate episode of major depressive disorder without prior episode (HCC) Take 3 Tablets by mouth in the morning. 100 Tablet 3 03/03/2023 Suspended Additional Information documented as of this encounter (statuses as of 03/07/2023) Active Problems Problem Noted Date S/P mitral valve clip implantation 03/06 Atherosclerosis of squaxin coronary arter y without angina pectoris 02/13/2023 Last Assessment & Plan: Continue statin, sotalol. ASA History of TIA (transient ischemic attac k) 11/29/2022 Last Assessment & Plan: -Recent admission to [facility], presented with numbness of tongue and slurred [...] regurgitation 3 Primary osteoarthritis of right knee Severe mitral valve regurgitation 2022 Overview: Scheduled for MVR 03/06 Last Assessment & Plan: Talk of possible repair. We discussed with Cardiology. 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 Denies fever/chills. Exam benign. Likely viral. -Mucinex 1200mg BID ordered x7 days. -Instructed supportive care and to call [facility] if she feels she is worsening, not improving, or any other urgent, non-emergent concerns. Shortness of breath 07/26/2022 11/18/2022 Last Assessment & Plan: Followed by cardiology--seen 07/02-nadreio unremarkable, echo with preserved systolic function, no [...] as of this encounter (statuses as of 03/07/2023) Immunizations Name Administration Dates Next Due COVID-19 [...] or do you have serious difficulty hearing? No-[place] can hear w/ hearing aid 03/07/2023 Are [...] Home Visit [facility] Karlene Zepeda, RN [address] [place] [address] 03/17/2023 Office Visit Cardiology Stephen Hewitt DO [address] [place] [address] 03/19/2023 Imaging Radiology 04/02/2023 [facility] Visit [facility] [address] [facility] [address] 04/07/2023 Office Visit Gastroenterology Janine Cunningham CRNP [address] [place] [address] 04/11/2023 Office Visit Hematology Oncology Nereyda Metz CRNP [address] [place], [place] [phone] 04/16/2023 Office Visit Cardiology Wilbur Rivera MD [address] [place] [address] 05/09/2023 Office Visit Nephrology Rosario Green MD [address] [place] [address] 05/22/2023 Office Visit Ophthalmology Wilbur Benavides DO [address] [place], [place] [id number] 05/23/2023 Office Visit Family Medicine Florentin Calvo DO [address] [place] [address] 10/24/2023 Office Visit Gynecology Oncology Chris Peng PA-C [address] [place] [address] Health Maintenance Due Date Last Done Comments DIABETES-EYE EXAM 04/11/2023 04/11/2022, , 04/11/2022, Additional history exists Influenza Vaccine (FLU shot) (#1) 2023 05/15/2022, 05/22/2021, 04/19/2020, Additional history exists CKD PHOS USE SMARTSET 39581 05/01/2023 09/0 02/2022, 04/03/2022, 12/05/2020, Additional history exists HbA1c 08/23/2023 02/21/2023, 0 10/2022, 04/03/2022, Additional history exists GFR 09/07/2023 03/07/2023, 02/22, 03/04/2023, Additional history exists TSH 09/24/2023 09/24/2022, 10/2022, 02/12/2022, Additional history exists DIABETES-FOOT EXAM 10/01/2023 10/01/2022, 0 10/26/2021, 12/05/2020, Additional history exists Depression Screening, Annual for Pts 12 and Over 02/19/2024 02/18/2023 Albumin/Creatinine Ratio 02/22/2024 023, 05/01/2022, 10/26/2021, Additional history exists CKD HGB USE SMARTSET 20129 03/07/202403/07, 03/06/2023, 03/04/2023, Additional history exists DXA [...] this encounter Medical Devices Implanted Type Area Economic Analyst Device Identifier Shelf Expiration Date Model / Serial / Lot Cath Thermodilution 6fr - [id number] Implanted:Qty: 1 on 01/24/2023 by Wilbur Rivera MD [place] [facility] [place] [employer] [id number] 10/15/2024 [id number] / / [id number] documented as of this encounter Procedures Procedure Name Priority Date/Time Associated Diagnosis Comments CARDIOLOGY SCANNED RESULT 03/07/2023 documented in this encounter Results * CARDIOLOGY SCANNED RESULT (03/07/2023) 03/07/2023 Stephen Hewitt DO OTHER documented in this encounter Advance Directives Documents on File Type Date Recorded 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 Advance Directives and Living Will 11/29/2022 ADVANCE DIRECTIVE / LIVING WILL Power of Band Attacher 11/29/2022 POWER OF A TTORNEY Advance Directives and Living Will 10/24/2014 ADVANCE DIRECTIVE / LIVING WILL Power of Band Attacher 10/24/2014 POWER OF A TTORNEY Latest Code Status on File Code Status Date Activated Date Inactivated Comments No Code 03/06/2023 5:08 PM This order reflects the [...] Agen t (per Health Care Power of Band Attacher document) Care Teams Circle Edger Relationship Specialty Start Date End Date Florentin Calvo, [address] [place] [address] PCP - General Internal Medicine 03/24/13 documented as of this encounter
--- OUTSIDE RECORDS SUMMARY | 2023-08-14 23:43 | External Medical Summary ---
Author Name Unknown Address Unknown Organization K01:LABORATORY [address] [address] Laboratory Report Ordering Provider Test Date Status HOMA PARRISH 03/06/2023 11:30:00 Final Observation Date Value Abnormality Reference (Units ) Status WBC, Total 03/06/2023 11:30:00 10.94 Above high normal 4.00-10.80 (K/uL) Final RBC 03/06/2023 11:30:00 3.06 3.85-5.15 (M/uL) Final Hemoglobin 03/06/2023 11:30:00 9.5 Below low normal 12.0-15.3 (g/dL) Final HCT 03/06/2023 11:30:00 29.9 Below low normal 36.0-45.2 (%) Final MCV 03/06/2023 11:30:00 97.7 81.5-97.5 (fL) Final MCH 03/06/2023 11:30:00 31.0 27.0-34.0 (pg) Final MCHC 03/06/2023 11:30:00 31.8 32.0-36.0 (g/dL) Final RDW 03/06/2023 11:30:00 16.9 11.5-15.5 (%) Final Platelets 03/06/2023 11:30:00 154 140-400 (K/uL) Final MPV 03/06/2023 11:30:00 10.2 6.6-11.1 (fL) Final Nucleated erythrocytes/100 leukocytes [Ratio] in Blood by Automated count 03/06/2023 11:30:00 0 <=0 (/100 WBCs) Final Performing Location [facility] [place] [address] [facility] [address]
--- OUTSIDE RECORDS SUMMARY | 2023-08-14 23:43 | External Medical Summary ---
Author Name Unknown Address Unknown Organization K01:LABORATORY [facility] - [address] [place] [address] Laboratory Report Ordering Provider Test Date Status HOMA PARRISH 03/07/2023 04:14:00 Final Observation Date Value Abnormality Reference (Units ) Status Magnesium 03/07/2023 04:14:00 2.1 1.5-2.6 (m g/dL) Final Performing Location LABORATORY [facility] - [address] [place] [address]
--- OUTSIDE RECORDS SUMMARY | 2023-08-14 23:43 | External Medical Summary ---
Author Name Unknown Address Unknown Organization : Laboratory Report Ordering Provider Test Date Status ZAHRA DEMPSEY 03/06/2023 09:10:48 Final Observation Date Value Abnormality Reference (Units) Status Blood draw [PhenX] 03/06/2023 09:10:48 Arterial Draw Final pH, POC (i-STAT) 03/06/2023 09:10:48 7.385 7.350-7.450 Final PCO2 POC (i-STAT) 03/06/2023 09:10:48 36.3 35.0-45.0 (mm Hg) Final PO2 POC (i-STAT) 03/06/2023 09:10:48 194 Above high normal 75-100 (mm Hg) Final Base excess standard in Arterial blood by calculation 03/06/2023 09:10:48 -3 Below low normal -2-2 (mmol/L) Final Bicarbonate, Venous, POC (i-STAT) 03/06/2023 09:10:48 21.7 Below low normal 23.0-31.0 (mmol/L) Final O2 Sat, calculated POC (i-STAT) 03/06/2023 09:10:48 100.0 Above high normal 94.0-98.0 (%) Final Glucose, whole blood 03/06/2023 09:10:48 150 Above high normal 70-120 (mg/dL) Final Potassium, Whole Blood 03/06/2023 09:10:48 3.8 3.5-5.1 (mmol/L) Final Sodium, Whole Blood 03/06/2023 09:10:48 140 135-146 (mmol/L) Final Calcium, Ionized, Whole Blood 03/06/2023 09:10:48 1.19 1.13-1.32 (mmol/L) Final Hemoglobin POC (i-STAT) 03/06/2023 09:10:48 12.2 12.0-15.3 (g/dL) Final HCT 03/06/2023 09:10:48 36 36-45 (%) Final Performing Location
--- OUTSIDE RECORDS SUMMARY | 2023-08-14 23:43 | External Medical Summary ---
Author Name Unknown Address Unknown Organization : Laboratory Report Ordering Provider Test Date Status ZAHRA DEMPSEY 03/06/2023 09:01:14 Final NORMAL (NON-HEPARINIZED) 74- 137 SECONDS
HEPARINIZED 200+ SECONDS
CRITICAL GREATER THAN 1000 SECONDS
null Observation Date Value Abnormality Reference (Units ) Status Kaolin activated time [Units/volume] in Blood 03/06/2023 09:01:14 311 50-1000 (secs) Final Performing Location
--- OUTSIDE RECORDS SUMMARY | 2023-08-14 23:43 | External Medical Summary ---
Author Name Unknown Address Unknown Organization : Laboratory Report Ordering Provider Test Date Status ZAHRA DEMPSEY 03/06/2023 07:45:54 Final NORMAL (NON-HEPARINIZED) 74- 137 SECONDS
HEPARINIZED 200+ SECONDS
CRITICAL GREATER THAN 1000 SECONDS
null Observation Date Value Abnormality Reference (Units ) Status Kaolin activated time [Units/volume] in Blood 03/06/2023 07:45:54 161 50-1000 (secs) Final Performing Location
--- OUTSIDE RECORDS SUMMARY | 2023-08-14 23:43 | External Medical Summary | Summary of Care ---
Author Name Unknown Organization [facility] Address [address] [place] [address] Phone [phone] Care Team Providers Care Telecommunications Support Name Role Phone Florentni Calvo DO Primary Care Provider [phone] Reason for Referral * Precert (Within 10 days (routine)) - Authorized Specialty Diagnoses / Procedures Referred By Contac t Referred To Contact Cardiac Studies Diagnoses Status post implantation of mitral valve leaflet clip Procedures ECHO, COMPLETE (2D), TRANS-THORACIC Emelina Aden CRNP [address] [place] [address] Referral ID Status Reason Start Date Expiration Date V isits Requested Visits Authorized [id number] Authorized Precert 04/07/2023 999 999 Encounter Details Date Type Department Care Team Description 03/06/2023 Orders Only [facility] [place] [address] [place] [address] Steph Hardin CRC [address] [place] [address] Status post implantation of mitral valve leaflet clip* Allergies Active Allergy Reactions Severity Noted Date Comments Azithromycin Other (Please comment) 12/04/2021 QTC prolongation at [facility] Celecoxib Hives,Rash High 03/24/2013 Other reaction(s): [...] as of this encounter (statuses as of 03/06/2023) Medications Medication Sig Dispensed Refills Start Date End Date Status ferrous sulfate (FEOSOL) 325 (65 FE) MG Tablet Take 1 Tab by mouth 2 times a day. 180 Tab 1 09/21/2019 Suspended Additional Information OneTouch Gregory Environmentalflorinda w/Device KitIndications:Typ e 2 diabetes mellitus with [...] 60 Each 2 12/12/2022 Suspended Additional Information Emergent One In Vitro Strip (Glucose Blood) Test blood sugars up to 2 times a day E11.9 200 Strip 3 12/20/2022 Suspended Additional Information Pantoprazole Sodium 40 MG Oral Tablet Delayed Release (Protonix) Take 1 Tablet by mouth in the morning and 1 Tablet in the evening. 60 Tablet 5 01/02/2023 Suspended Additional Information Ipratropium [place] 0.03 % Nasal Solution Administer 2 Sprays [...] Oral Tablet (Lipitor)Indicatio ns:PVD (peripheral vascular disease) ([facility]),Type 2 [...] 3 Suspended Additional Information OneTouch Delica Plus [id number] USE 2 TIMES A DAY DIRECTED 200 [...] disorder without prior episode ([facility]) Take 3 Tablets by mouth in the morning. 100 Tablet 3 03/03/2023 Suspended Additional Information documented as of this encounter (statuses as of 03/06/2023) Active Problems Problem Noted Date Atherosclerosis of [place] coronary arter y without angina pectoris 02/13/2023 Last Assessment & Plan: Continue statin, sotalol. 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: Now just using [...] as of this encounter (statuses as of 03/06/2023) Resolved Problems Problem Noted Date Resolved Date [...] as of this encounter (statuses as of 03/06/2023) Immunizations Name Administration Dates Next Due COVID-19 [...] on file documented as of this encounter Plan of Treatment Upcoming Encounters Date Type Specialty Care Team Description 03/10/2023 Home Visit [facility] Karlene Zepeda RN [address] [place] [address] 03/17/2023 Office Visit Cardiology Stephen Hewitt DO [address] [place] [address] 03/19/2023 Imaging Radiology 04/02/2023 Office Visit Vascular Surgery Stephen Wright PA-Shonna [address] [place] [address] 04/07/2023 Office Visit Gastroenterology Janine Cunningham CRNP [address] [place] [address] 04/11/2023 Office Visit Hematology Oncology Nereyda Metz CRNP [address] [facility] [place] [address] 05/09/2023 Office Visit Nephrology Rosario Green MD [address] [place] [address] 05/22/2023 Office Visit Ophthalmology Wilbur Benavides, DO [address] [address] 05/23/2023 Office Visit Family Medicine Florentin Calvo, [address] [place] [address] 10/24/2023 Office Visit Gynecology Oncology Chris Peng PA-C [address] [place] [address] Scheduled Orders Name Type Priority Associated Diagnoses Orde r Schedule ECHO, COMPLETE (2D), TRANS-THORACIC Echocardiology Routine Status post implantation of mitral valve leaflet clip Expected: 04/07/2023 (Approximate), Expires: 04/06/2025 CBC Lab Routine Status post implantation of mitral valve leaflet clip Expected: 04/07/2023, Expires: 03/06/2024 BASIC METABOLIC PANEL Lab Routine Status post implantation of mitral valve leaflet clip Expected: 04/07/2023, Expires: 03/06/2024 BNP, NT-PRO Lab Routine Status post implantation of mitral valve leaflet clip Expected: 04/07/2023, Expires: 03/06/2024 Scheduled Procedures Name Priority Associated Diagnoses Date/Ti me TRANSCATHETER MITRAL VALVE REPAIR Mitral valve regurgitation 03/06/2023 7:21 AM EDT Health Maintenance Due Date Last Done Comments DIABETES-EYE EXAM 04/11/2023 04/11/2022, , 04/11/2022, Additional history exists Influenza Vaccine (FLU shot) (#1) 2023 05/15/2022, 05/22/2021, 04/19/2020, Additional history exists CKD PHOS USE SMARTSET 95889 05/01/2023 090 02/2022, 04/03/2022, 12/05/2020, Additional history exists HbA1c 08/23/2023 02/21/2023, 10/2022, 04/03/2022, Additional history exists GFR 09/06/2023 03/06/2023, 02/22, 02/21/2023, Additional history exists TSH 09/24/2023 09/24/2022, 10/2022, 02/12/2022, Additional history exists DIABETES-FOOT EXAM 10/01/2023 10/01/2022, 0 10/26/2021, 12/05/2020, Additional history exists Depression Screening, Annual for Pts 12 and Over 02/19/2024 02/18/2023 Albumin/Creatinine Ratio 02/22/2024 023, 05/01/2022, 10/26/2021, Additional history exists CKD HGB USE SMARTSET 18006 03/06/202403/06, 03/04/2023, 02/21/2023, Additional history exists DXA Scan 05/07/2025 05/07/2021, [...] this encounter Medical Devices Implanted Type Area Camp Dining Room Attendant Device Identifier Shelf Expiration Date Model / Serial / Lot Cath Thermodilution 6fr - [id number] Implanted:Qty: 1 on 01/24/2023 by Wilbur Rivera MD at [facility] [employer] [id number] 10/15/2024 [id number] / / [id number] documented as of this encounter Visit Diagnoses Diagnosis Status post implantation of mitral valve leaflet clip- Primary documented in this encounter Advance Directives Documents on File Type Date Recorded 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 Question Answer Comments Discussion of Advance Directives occurred with: Patient Code Status History Code Status Date Activated Date Inactivated Comments Full Code 01/24/2023 1:33 PM 01/25/2023 1:35 [...] File Name Relationship Healthcare Agent [facility] Communication Bright [facility] Adult Child Health Care Agen t (per Health Care Power of School Clerk document) Care Teams Telecommunications Support Relationship Specialty Start Date End Date Florentin Calvo, [address] [place] [facility] [place] [address] PCP - General Internal Medicine 03/24/13 documented as of this encounter
--- OUTSIDE RECORDS SUMMARY | 2023-08-14 23:43 | External Medical Summary ---
Author Name Unknown Address Unknown Organization : Laboratory Report Ordering Provider Test Date Status ZAHRA DEMPSEY 03/06/2023 10:16:14 Final NORMAL (NON-HEPARINIZED) 74- 137 SECONDS
HEPARINIZED 200+ SECONDS
CRITICAL GREATER THAN 1000 SECONDS
null Observation Date Value Abnormality Reference (Units ) Status Kaolin activated time [Units/volume] in Blood 03/06/2023 10:16:14 305 50-1000 (secs) Final Performing Location
--- OUTSIDE RECORDS SUMMARY | 2023-08-14 23:43 | External Medical Summary ---
Author Name Unknown Address Unknown Organization [id number]:[facility] [place] [address] [place] [address] Laboratory Report Ordering Provider Test Date Status GARRY BARCENAS 03/06/2023 06:27:42 Final Exclude Heart Failure: <300 pg/mL
Diagnose Heart Failure:
Age <50 yr: >450 pg/mL
50-75 yr: >900 pg/mL
>75 yr: >1800 pg/mL
GFR is 30-59 mL/min: >1200 pg/mL or Age- adjusted values
GFR <30 mL/min: do not use, not reliable

Prognostic threshold: 1000 pg/mL Observation Date Value Abnormality Reference (Units ) Status BNP, Pro-hormone 03/06/2023 06:27:42 46057 Above high no rmal <300 (pg/mL) Final Performing Location [facility] [facility] [address] [place] [address]
--- OUTSIDE RECORDS SUMMARY | 2023-08-14 23:43 | External Medical Summary ---
Author Name Unknown Address Unknown Organization [id number]:[facility] [place] [address] [facility] [address] [place] [address] Laboratory Report Ordering Provider Test Date Status HOMA PARRISH 03/06/2023 11:30:00 Final Observation Date Value Abnormality Reference (Units ) Status BUN 03/06/2023 11:30:00 40 Above high normal 6-20 (mg/dL) Final Creatinine 03/06/2023 11:30:00 1.5 Above high normal 0.5-1.0 (mg/dL) Final Glomerular filtration rate/1.73 sq M.predicted [Volume Rate/Area] in Serum, Plasma or Blood by Creatinine-based formula (CKD-EPI) 03/06/2023 11:30:00 35 Below low normal >=60 (mL/min) Final eGFR is calculated based on the CKD-EPI 2020 equation SODIUM 03/06/2023 11:30:00 139 135-146 (m mol/L) Final Potassium 03/06/2023 11:30:00 4.4 3.5-5.1 (m mol/L) Final Cl 03/06/2023 11:30:00 105 98-107 (mm ol/L) Final CO2 03/06/2023 11:30:00 23 22-32 (mmo l/L) Final Anion gap 03/06/2023 11:30:00 11 7-15 (mmol /L) Final Glucose 03/06/2023 11:30:00 150 Above high normal 70 -120 (mg/dL) Final Calcium 03/06/2023 11:30:00 8.9 8.4-10.2 ( mg/dL) Final Performing Location [facility] [place] [address] [place] [address]
--- OUTSIDE RECORDS SUMMARY | 2023-08-14 23:43 | External Medical Summary | Summary of Care ---
Author Name Unknown Organization [facility] Address [address] [place] [address] Phone [phone] Care Team Providers Care Feather Separator Name Role Phone Florentin Calvo DO Primary Care Provider [phone] Reason for Visit * Auth/Cert Specialty Diagnoses / Procedures Referred By Contac t Referred To Contact Diagnoses Mitral valve regurgitation Mitral valve regurgitation [I34.0] Procedures TRANSCATH REPAIR MITRAL VALVE, INITIAL TRANSCATHETER MITRAL VALVE REPAIR Referral ID Status Reason Start Date Expiration Date Visits Re quested Visits Authorized [id number] 999 999 Encounter Details Date Type Department Care Team Description 03/06/2023 Hospital Encounter Cardiac Studies [facility] [address] [place] [address] Allergies Active Allergy Reactions Severity Noted Date Comments Azithromycin Other (Please comment) 12/04/2021 QTC prolongation at [facility] Celecoxib Hives,Rash High 03/24/2013 Other reaction(s): [...] 60 Each 2 12/12/2022 Suspended Additional Information FlatStack In Vitro Strip (Glucose Blood) Test blood sugars up to 2 times a day E11.9 200 Strip 3 12/20/2022 Suspended Additional Information Pantoprazole Sodium 40 MG Oral Tablet Delayed Release (Protonix) Take 1 Tablet by mouth in the morning and 1 Tablet in the evening. 60 Tablet 5 01/02/2023 Suspended Additional Information Ipratropium [place] 0.03 % Nasal Solution Administer 2 Sprays [...] diastolic heart failure due to valvular disease ([facility]) TAKE ONE TABLET BY MOUTH [...] Oral Tablet (Lipitor)Indicatio ns:PVD (peripheral vascular disease) ([facility]),Type 2 diabetes mellitus with stage 3a chronic kidney disease and hypertension ([facility]) TAKE ONE TABLET BY MOUTH EVERY DAY DIRECTED 100 Tablet 1 08/20/2022 3 Suspended Additional Information Montelukast Sodium 10 MG Oral Tablet (Singulair)Indicat ions:Moderate persistent asthma without complication TAKE ONE TABLET BY MOUTH AT BEDTIME 100 Tablet 3 08/05/2022 3 Suspended Additional Information OneTouch Delica Plus [id number] USE 2 TIMES A DAY DIRECTED 200 [...] Assessment & Plan: -Recent admission to [facility], presented with numbness of tongue and [...] Obstructive sleep apnea of adult 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 & Plan: Now just [...] Zepeda, RN [address] [place] [address] 03/14/2023 Office Visit Cardiology Pilar Atkinson CRNP [address] [place] [address] 03/17/2023 Office Visit Cardiology Stephen Hewitt DO [address] [place] [address] 03/19/2023 Imaging Radiology 04/02/2023 Office Visit Vascular Surgery Stephen Wright PA-C [address] [place] [address] 04/07/2023 Office Visit Gastroenterology Janine Cunningham CRNP [address] [place] [address] 04/11/2023 Office Visit [facility]ematology [facility]cology [facility] [address] [facility] [place] [address] 04/16/2023 Office Visit Cardiology Wilbur Rivera MD [address] [place] [address] 05/09/2023 Office Visit Nephrology Rosario Green MD [address] [place] [facility] [place] [address] 05/22/2023 Office Visit Ophthalmology Wilbur Benavides DO [address] [place] [address] 05/23/2023 Office Visit Family Medicine Florentin Calvo DO [address] [place] [address] 10/24/2023 Office Visit Gynecology Oncology Chris Peng PA-C [address] [place] [address] Health Maintenance Due Date Last Done Comments DIABETES-EYE EXAM 04/11/2023 04/11/2022, , 04/11/2022, Additional history exists Influenza Vaccine (FLU shot) (#1) 2023 05/15/2022, 05/22/2021, 04/19/2020, Additional history exists CKD PHOS USE SMARTSET 50185 05/01/2023 09/0 02/2022, 04/03/2022, 12/05/2020, Additional history exists HbA1c 08/23/2023 02/21/2023, 01/0 10/2022, 04/03/2022, Additional history exists GFR 09/07/2023 03/07/2023, 02/22, 03/04/2023, Additional history exists TSH 09/24/2023 09/24/2022, 01/0 10/2022, 02/12/2022, Additional history exists DIABETES-FOOT EXAM 10/01/2023 10/01/2022, 0 10/26/2021, 12/05/2020, Additional history exists Depression Screening, Annual for Pts 12 and Over 02/19/2024 02/18/2023 Albumin/Creatinine Ratio 02/22/202402/21/2 023, 05/01/2022, 10/26/2021, Additional history exists CKD HGB USE SMARTSET 35131 03/07/202403/07, 03/06/2023, 03/04/2023, Additional history exists DXA [...] this encounter Medical Devices Implanted Type Area Enrollment Clerk Device Identifier Shelf Expiration Date Model / Serial / Lot Cath Thermodilution 6fr - [id number] Implanted:Qty: 1 on 01/24/2023 by Wilbur Rivera MD at [facility] [employer] TERE [id number] 10/15/2024 [id number] / / [id number] documented as of this encounter Procedures Procedure Name Priority Date/Time Associated Diagnosis Comments TRANSESOPHAGEAL ECHO (COMPLETE) Routine 03/06/2023 11:10 AM EDT Valvular heart disease documented in this encounter Results * TRANSESOPHAGEAL ECHO (COMPLETE) (03/06/2023 11:10 AM EDT) LEFT VENTRICULAR EJECTION FRACTION 55 % [facility] 03/06/2023 7:30 AM EDT Wilbur Rivera MD [facility] documented in this encounter Advance Directives Documents on File Type Date Recorded 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 Advance Directives and Living Will 11/29/2022 ADVANCE DIRECTIVE / LIVING WILL Power of Physical Therapist Aide 11/29/2022 POWER OF A TTORNEY Advance Directives and Living Will 10/24/2014 ADVANCE DIRECTIVE / LIVING WILL Power of Physical Therapist Aide 10/24/2014 POWER OF A TTORNEY Latest Code [...] Agents on File Name Relationship [facility] Bright Yu[facility] Adult Child Health Care Agen t (per Health Care Power of Physical Therapist Aide document) Care Teams Feather Separator Relationship Specialty Start Date End Date Florentin Calvo, [address] [place] [address] PCP - General Internal Medicine 03/24/13 documented as of this encounter
--- OUTSIDE RECORDS SUMMARY | 2023-08-14 23:44 | External Medical Summary ---
Author Name Unknown Address Unknown Organization [id number][facility] [address] [place] [address] Laboratory Report Ordering Provider Test Date Status GARRY BARCENAS 03/04/2023 09:12:08 Final Observation Date Value Abnormality Reference (Units ) Status WBC, Total 03/04/2023 09:12:08 8.00 4.00-10.8 0 (K/uL) Final RBC 03/04/2023 09:12:08 3.31 3.85-5.15 (M/uL) Final Hemoglobin 03/04/2023 09:12:08 10.1 Below low normal 12 .0-15.3 (g/dL) Final HCT 03/04/2023 09:12:08 31.0 Below low normal 36. 0-45.2 (%) Final MCV 03/04/2023 09:12:08 93.7 81.5-97.5 (fL) Final MCH 03/04/2023 09:12:08 30.5 27.0-34.0 (pg) Final MCHC 03/04/2023 09:12:08 32.6 32.0-36.0 (g/dL) Final RDW 03/04/2023 09:12:08 16.5 11.5-15.5 (%) Final Platelets 03/04/2023 09:12:08 182 140-400 (K /uL) Final MPV 03/04/2023 09:12:08 9.9 6.6-11.1 ( fL) Final Performing Location [facility] [address] [place] [address]
--- OUTSIDE RECORDS SUMMARY | 2023-08-14 23:44 | External Medical Summary ---
Author Name Unknown Address Unknown Organization [id number]:[facility] [place] [address] [place] [address] Laboratory Report Ordering Provider Test Date Status GARRY BARCENAS 03/04/2023 09:12:08 Final Observation Date Value Abnormality Reference (Units ) Status ABO 03/04/2023 09:12:08 O Final RH 03/04/2023 09:12:08 Positive Final RED BLOOD CELL ANTIBODY SCREEN 03/04/2023 09:12:08 Negative Final SPECIMEN EXPIRATION DATE 03/04/2023 09:12:08 03/09/2023 23:59 Final Performing Location [facility] [place] [address] [place] [address]
--- OUTSIDE RECORDS SUMMARY | 2023-08-14 23:44 | External Medical Summary | Summary of Care ---
Author Name Unknown Organization [facility] Address [address] [place] [address] Phone [phone] Care Team Providers Care Human Resources Operations Specialist Name Role Phone Maxinezaire Florentin Hernandez DO Primary Care Provider [phone] Encounter Details Date Type Department Care Team Description 03/03/2023 Patient Reported Data Patient Survey Ortho OBERD Allergies Active Allergy Reactions Severity Noted Date Comments Azithromycin Other (Please comment) 12/04/2021 QTC prolongation at [facility] Celecoxib Hives,Rash High 03/24/2013 Other [...] as of this encounter (statuses as of 03/03/2023) Medications Medication Sig Dispensed Refills Start Date End Date Status ferrous sulfate (FEOSOL) 325 (65 FE) MG Tablet Take 1 Tab by mouth 2 times a day. 180 Tab 1 09/21/2019 Active OneTouch Verio w/Device KitIndications:Type 2 diabetes mellitus with hemoglobin A1c goal of less than 7.0% ([facility]) Use up to 1 times a [...] at bedtime. 60 Tablet 11 10/03/2022 Active Polyethylene Glycol 3350 17 GM Oral Packet Take 1 Packet by mouth daily as needed for Constipation. 0 Active Fluticasone-[place] rol 250-50 MCG/ACT Inhalation Aerosol [...] evening. 60 Tablet 5 01/02/2023 Active Ipratropium [place] 0.03 % Nasal Solution Administer 2 Sprays into nostril in the morning and 2 Sprays before bedtime. 0 Active Vitamin B-12 100 MCG Oral Tablet (vitamin B-12) Take 1 Tablet by mouth in the morning. 30 Tablet 3 02/13/2023 Active Folic Acid 1 MG Oral TabletIndications:C hronic atrial fibrillation ([facility]) TAKE ONE TABLET BY MOUTH EVERY MORNING 100 Tablet 1 02/03/2023 02/03/2024 Active Torsemide 10 MG Oral Tablet (Demadex)Indication s:Chronic diastolic heart failure due to valvular disease ([facility]) TAKE ONE TABLET BY MOUTH EVERY MORNING AND 1 TABLET 4-5 HOURS LATER 100 Tablet 3 01/31/2023 01/31/2024 Active Levothyroxine Sodium 125 MCG Oral Tablet [...] s:PVD (peripheral vascular disease) ([facility]),Type 2 diabetes mellitus with stage 3a chronic kidney disease and hypertension ([facility]) TAKE ONE TABLET BY MOUTH EVERY DAY DIRECTED 100 Tablet 1 08/20/2022 08/20/2023 Active Montelukast Sodium 10 MG Oral Tablet (Singulair)Indicati ons:Moderate persistent asthma without complication TAKE ONE TABLET BY MOUTH AT BEDTIME 100 Tablet 3 08/05/2022 08/05/2023 Active OneTouch Delica Plus [id number] USE 2 TIMES A DAY DIRECTED 200 [...] the morning. 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 Last Assessment & Plan: Now just using [...] as of this encounter (statuses as of 03/03/2023) Resolved Problems Problem Noted Date Resolved Date [...] as of this encounter (statuses as of 03/03/2023) Immunizations Name Administration Dates Next Due COVID-19 [...] Encounters Date Type Specialty Care Team Description 03/04/2023 Office Visit Orthopedics Juvenal Carvalho, [address] [place] [address] 03/06/2023 Hospital Encounter Cardiac Spectroscopist Wilbur Rivera MD [address] [place], [place] [id number] 03/06/2023 Surgery Cardiac Spectroscopist Wilbur Rivera MD [address] [place] [address] TRANSCATHETER MITRAL VALVE REPAIR 03/06/2023 Office Visit Cardiology [place], Cardiac [facility] [address] [place] [address] 03/10/2023 Home Visit [facility] Karlene Zepeda RN [address] [place] [address] 03/17/2023 Office Visit Cardiology Stephen Hewitt, DO [address] [place] [address] 03/19/2023 Imaging Radiology 04/02/2023 Office Visit Vascular Surgery Stephen Wright PA-C [address] [place] [address] 04/07/2023 Office Visit Gastroenterology Janine Cunningham CRNP [address] [place] [address] 04/11/2023 Office Visit Hematology Oncology Nereyda Metz CRNP [address] [place] [address] 05/09/2023 Office Visit Nephrology Rosario Green MD [address] [place] [address] 05/22/2023 Office Visit Ophthalmology Wilbur Benavides DO [address] [place] [address] 05/23/2023 Office Visit Family Medicine Florentin Calvo, DO [address] [place] [address] 10/24/2023 Office Visit Gynecology Oncology Chris Peng PA-C [address] [place] [address] Scheduled Procedures Name Priority Associated Diagnoses Date/Ti me TRANSCATHETER MITRAL VALVE REPAIR Mitral valve regurgitation 03/06/2023 6:00 AM EDT Health Maintenance Due Date Last Done Comments DIABETES-EYE EXAM 04/11/2023 04/11/2022, , 04/11/2022, Additional history exists Influenza Vaccine (FLU shot) (#1) 2023 05/15/2022, 05/22/2021, 04/19/2020, Additional history exists CKD PHOS USE SMARTSET 97670 05/01/2023 09/0 02/2022, 04/03/2022, 12/05/2020, Additional history exists GFR 08/23/2023 02/21/2023, 01/23, 01/24/2023, Additional history exists HbA1c 08/23/2023 02/21/2023, 01/0 10/2022, 04/03/2022, Additional history exists TSH 09/24/2023 09/24/2022, 01/0 10/2022, 02/12/2022, Additional history exists DIABETES-FOOT EXAM 10/01/2023 10/01/2022, 0 10/26/2021, 12/05/2020, Additional history exists Depression Screening, Annual for Pts 12 and Over 02/19/2024 02/18/2023 Albumin/Creatinine Ratio 02/22/2024 023, 05/01/2022, 10/26/2021, Additional history exists CKD HGB USE SMARTSET 22833 02/22/202402/21, 02/21/2023, 02/05/2023, Additional history exists DXA Scan 05/07/2025 05/07/2021, [...] this encounter Medical Devices Implanted Type Area Pastry Finisher Device Identifier Shelf Expiration Date Model / Serial / Lot Cath Thermodilution 6fr - [id number] Implanted:Qty: 1 on 01/24/2023 by Wilbur Rivera MD at [facility] [employer] TERE [id number] 10/15/2024 [id number] / / [id number] documented as of this encounter Advance Directives Documents on File Type Date Recorded 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 Question Answer Comments Discussion of Advance Directives occurred with: Not Discussed due to patient's condition Code Status History Code Status Date Activated Date Inactivated Comments Full Code 02/22/2020 8:58 AM 02/22/2020 4:47 PM This order reflects the patients wishes and were consensually agreed upon. Healthcare Agents on File Name Relationship Healthcare Agent Relationshi p Communication Bright Barakat Adult Child Health Care Agen t (per Health Care Power of Operations Systems Specialist document) Care Teams Human Resources Operations Specialist Relationship Specialty Start Date End Date Florentin Calvo, [address] [place] [address] PCP - General Internal Medicine 03/24/13 documented as of this encounter
--- OUTSIDE RECORDS SUMMARY | 2023-08-14 23:44 | External Medical Summary | Summary of Care ---
Author Name Unknown Organization [facility] Address [address] [place] [address] Phone [phone] Care Team Providers Care Front Desk Team Member Name Role Phone Florentin Calvo DO Primary Care Provider [phone] Reason for Visit * Reason Comments Outpatient Testing Encounter Details Date Type Department Care Team Description 03/04/2023 Laboratory Laboratory, [facility] [place] [address] [place] [id number] [facility] [address] [place] [address] [facility] Other*[id number]; Aortic stenosis Allergies Active Allergy Reactions Severity Noted Date Comments Azithromycin Other (Please comment) 12/04/2021 QTC prolongation at [facility] Celecoxib Hives,Rash High 03/24/2013 Other [...] as of this encounter (statuses as of 03/04/2023) Medications Medication Sig Dispensed Refills Start Date End Date Status ferrous sulfate (FEOSOL) 325 (65 FE) MG Tablet Take 1 Tab by mouth 2 times a day. 180 Tab 1 09/21/2019 Active OneTouch Verio w/Device KitIndications:Type 2 diabetes mellitus with hemoglobin A1c goal of less than 7.0% ([facility]) Use up to 1 [...] evening. 60 Tablet 5 01/02/2023 Active Ipratropium [place] 0.03 % Nasal Solution Administer 2 Sprays [...] diastolic heart failure due to valvular disease ([facility]) TAKE ONE TABLET BY [...] Tablet (Lipitor)Indication s:PVD (peripheral vascular disease) ([facility]),Type 2 diabetes mellitus with stage 3a chronic kidney disease and hypertension ([facility]) TAKE ONE TABLET BY MOUTH EVERY DAY DIRECTED 100 Tablet 1 08/20/2022 08/20/2023 Active Montelukast Sodium 10 MG Oral Tablet (Singulair)Indicati ons:Moderate persistent asthma without complication TAKE ONE TABLET BY MOUTH AT BEDTIME 100 Tablet 3 08/05/2022 08/05/2023 Active OneTouch Delica Plus [id number] USE 2 TIMES A DAY DIRECTED 200 [...] as of this encounter (statuses as of 03/04/2023) Active Problems Problem Noted Date Atherosclerosis of [place] coronary arter y without angina pectoris 02/13/2023 Last Assessment & Plan: Continue statin, sotalol. 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 & Plan: Now just [...] as of this encounter (statuses as of 03/04/2023) Resolved Problems Problem Noted Date Resolved Date [...] as of this encounter (statuses as of 03/04/2023) Immunizations Name Administration Dates Next Due COVID-19 [...] Encounters Date Type Specialty Care Team Description 03/06/2023 Hospital Encounter Cardiac Surgeon Chief Wilbur Rivera MD [address] [facility] [place] [address] 03/06/2023 Surgery Cardiac Surgeon Chief Wilbur Rivera MD [address] [facility] [place] [id number] TRANSCATHETER MITRAL VALVE REPAIR 03/06/2023 Office Visit Cardiology [place], [facility] [address] [facility] [address] 03/10/2023 [facility] Karlene Zepeda RN [address] [facility] [place] [address] 03/17/2023 Office Visit Cardiology Stephen Hewitt, DO [address] [facility] [place] [address] 03/19/2023 Imaging Radiology 04/02/2023 Office Visit Vascular Surgery Stephen Wright PA-C [address] [place], [place] [phone] 04/07/2023 Office Visit Gastroenterology Janine Cunningham CRNP [address] [facility] [place] [address] 04/11/2023 Office Visit Hematology Oncology Nereyda Metz CRNP [address] [place] [address] 05/09/2023 Office Visit Nephrology Rosario Green MD [address] [place] [address] 05/22/2023 Office Visit Ophthalmology Wilbur Benavides DO [address] [place] [address] 05/23/2023 Office Visit Family Medicine Florentin Calvo, DO [address] [place] [address] 10/24/2023 Office Visit Gynecology Oncology Chris Peng PA-C [address] [place] [address] Pending Results Name Type Priority Associated Diagnoses Date /Time MYCODE SUBSEQUENT ADULT Lab Routine [facility] Research Other*[id number] 03/04/2023 9:12 AM EDT BASIC METABOLIC PANEL Lab Routine Aortic stenosis 03/04/2023 9:12 AM EDT PT INR Lab Routine Aortic stenosis 03/04/2023 9:12 AM EDT HEPATIC FUNCTION PANEL Lab Routine Aortic stenosis 03/04/2023 9:12 AM EDT TYPE AND SCREEN Lab Routine Aortic stenosis 03/04/2023 9:12 AM EDT ABO/RH Lab Routine Aortic stenosis 03/04/2023 9:18 AM EDT BNP, NT-PRO Lab Routine Aortic stenosis 03/04/2023 9:12 AM EDT MYCODE SST1 Lab Routine [facility] Other*[id number] 03/04/2023 9:12 AM EDT MYCODE SST2 Lab Routine [facility] Other*[id number] 03/04/2023 9:12 AM EDT Scheduled Procedures Name Priority Associated Diagnoses Date/Ti or TRANSCATHETER MITRAL VALVE REPAIR Mitral valve regurgitation 03/06/2023 6:00 AM EDT Health Maintenance Due Date Last Done Comments DIABETES-EYE EXAM 04/11/2023 04/11/2022, , 04/11/2022, Additional history exists Influenza Vaccine (FLU shot) (#1) 2023 05/15/2022, 05/22/2021, 04/19/2020, Additional history exists CKD PHOS USE SMARTSET 35256 05/01/2023 09/0 02/2022, 04/03/2022, 12/05/2020, Additional history [...] Additional history exists CKD HGB USE SMARTSET 22592 03/04/202403/04, 02/21/2023, 02/21/2023, Additional history exists DXA Scan 05/07/2025 [...] this encounter Medical Devices Implanted Type Area Sinter Feeder Device Identifier Shelf Expiration Date Model / Serial / Lot Cath Thermodilution 6fr - [id number] Implanted:Qty: 1 on 01/24/2023 by Wilbur Rivera MD at [facility] [employer] [id number] 10/15/2024 [id number] / / [id number] documented as of this encounter Procedures Procedure Name Priority Date/Time Associated Diagnosis Comments CBC Routine 03/04/2023 9:12 AM EDT Aortic stenosis documented in this encounter Results * (ABNORMAL) CBC (03/04/2023 9:12 AM EDT) WBC 8.00 4.00 - 10.80 K/uL 03/04/2023 9:21 AM EDT [facility] RBC 3.31 3.85 - 5.15 M/uL 03/04/2023 9:21 AM EDT [facility] HGB 10.1(L) 12.0 - 15.3 g/dL 03/04/2023 9:21 AM EDT [facility] HCT 31.0(L) 36.0 - 45.2 % 03/04/2023 9:21 AM EDT [facility] MCV 93.7 81.5 - 97.5 fL 03/04/2023 9:21 AM EDT [facility] MCH 30.5 27.0 - 34.0 pg 03/04/2023 9:21 AM EDT [facility] MCHC 32.6 32.0 - 36.0 g/dL 03/04/2023 9:21 AM EDT [facility] RDW 16.5 11.5 - 15.5 % 03/04/2023 9:21 AM EDT [facility] PLT 182 140 - 400 K/uL 03/04/2023 9:21 AM EDT [facility] MPV 9.9 6.6 - 11.1 fL 03/04/2023 9:21 AM EDT [facility] Blood Venous blood specimen / Unknown Venipuncture / Unknown 03/04/2023 9:12 AM EDT 03/04/2023 9:12 AM EDT Wilbur Rivera MD LAB BLOOD ORDERABLES [facility] [address] [facility] [place] [address] documented in this encounter Visit Diagnoses Diagnosis [facility] Other*[id number] Aortic stenosis Aortic valve disorders Mitral valve regurgitation Mitral valve disorders documented in this encounter Advance Directives Documents on File Type Date Recorded 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 p Communication Bright Barakat Adult Child Health Care Agen t (per Health Care Power of Pacs Administrator document) Care Teams Front Desk Team Member Relationship Specialty Start Date End Date Florentin Calvo, DO [address] [place] [address] PCP - General Internal Medicine 03/24/13 documented as of this encounter
--- OUTSIDE RECORDS SUMMARY | 2023-08-14 23:44 | External Medical Summary | Summary of Care ---
Author Name Unknown Organization [facility] Address [address] [place] [address] Phone [phone] Care Team Providers Care Sieve Repairer Name Role Phone Maxinezaire Florentin Hernandez DO Primary Care Provider [phone] Encounter Details Date Type Department Care Team Description 03/03/2023 Patient Reported Data Patient Survey Ortho OBERD Allergies Active Allergy Reactions Severity Noted Date Comments Azithromycin Other (Please comment) 12/04/2021 QTC prolongation at [facility] Celecoxib Hives,Rash High 03/24/2013 Other reaction(s): Rash/Hives/Itching. [...] evening. 60 Tablet 5 01/02/2023 Active Ipratropium [place] 0.03 % Nasal Solution Administer 2 Sprays into nostril in the morning and 2 Sprays before bedtime. 0 Active Vitamin B-12 100 MCG Oral Tablet (vitamin B-12) Take 1 Tablet by mouth in the morning. 30 Tablet 3 02/13/2023 Active Folic Acid 1 MG Oral TabletIndications:C hronic atrial fibrillation ([facility]) TAKE ONE TABLET BY MOUTH EVERY MORNING 100 Tablet 1 02/03/2023 02/03/2024 Active Torsemide 10 MG Oral Tablet (Demadex)Indication s:Chronic diastolic heart failure due to valvular disease ([facility]) TAKE ONE TABLET BY [...] 3 08/05/2022 08/05/2023 Active OneTouch Delica Plus [id number] USE 2 TIMES A DAY DIRECTED 200 [...] Active Problems Problem Noted Date Atherosclerosis of [place] coronary arter y without angina pectoris 02/13/2023 Last Assessment & Plan: Continue statin, sotalol. 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 [address] [place] [address] 03/10/2023 Home Visit [facility] Karlene Zepeda RN [address] [place] [address] 03/17/2023 Office Visit Cardiology Stephen Hewitt, DO [address] [place] [address] 03/19/2023 Imaging Radiology 04/02/2023 Office Visit Vascular Surgery Stephen Wright PA-C [address] [place] [address] 04/07/2023 Office Visit Gastroenterology Janine Cunningham CRNP [address] [place] [address] 04/11/2023 Office Visit Hematology Oncology Nereyda Metz CRNP [address] [place] [address] 05/09/2023 Office Visit Nephrology Rosario Green MD [address] [place] [address] 05/22/2023 Office Visit Ophthalmology Wilbur Benavides DO [address] [place] [address] 05/23/2023 Office Visit Family Medicine Florentin Calvo, DO [address] [place] [address] 10/24/2023 Office Visit Gynecology Oncology Chris Peng PA-C [address] [place] [address] Scheduled Procedures Name Priority Associated Diagnoses Date/Ti me TRANSCATHETER MITRAL VALVE REPAIR Mitral valve regurgitation 03/06/2023 6:00 AM EDT Health Maintenance Due Date Last Done Comments DIABETES-EYE EXAM 04/11/2023 04/11/2022, , 04/11/2022, Additional history exists Influenza Vaccine (FLU shot) (#1) 2023 05/15/2022, 05/22/2021, 04/19/2020, Additional history exists CKD PHOS USE SMARTSET 61864 05/01/2023 09/0 02/2022, 04/03/2022, 12/05/2020, Additional history [...] Additional history exists CKD HGB USE SMARTSET 15965 02/22/202402/21, 02/21/2023, 02/05/2023, Additional history exists DXA [...] encounter Medical Devices Implanted Type Area Corporate Development Analyst Device Identifier Shelf Expiration Date Model / Serial / Lot Cath Thermodilution 6fr - [id number] Implanted:Qty: 1 on 01/24/2023 by Wilbur Rivera [place] [facility] [place] [employer] [id number] 10/15/2024 [id number] / / [id number] documented as of this encounter Advance Directives Documents on File Type Date Recorded Patient Turret Lathe Operator Expl anation Advance Directives and Living Will 11/29/2022 ADVANCE DIRECTIVE / LIVING WILL Power of Pick Up Truck Driver 11/29/2022 POWER OF A TTORNEY Advance Directives and Living Will 10/24/2014 ADVANCE DIRECTIVE / LIVING WILL Power of Pick Up Truck Driver 10/24/2014 POWER OF A TTORNEY Latest [...] Agen t (per Health Care Power of Pick Up Truck Driver document) Care Teams Sieve Repairer Relationship Specialty Start Date End Date Florentin Calvo, [address] [place] [address] PCP - General Internal Medicine 03/24/13 documented as of this encounter
--- OUTSIDE RECORDS SUMMARY | 2023-08-14 23:44 | External Medical Summary | Summary of Care ---
Author Name Unknown Organization [facility] Address [address] [place] [address] Phone [phone] Care Team Providers Care Metal Baler Name Role Phone Maxinezaire Florentin Hernandez DO Primary Care Provider [phone] Encounter Details Date Type Department Care Team Description 03/03/2023 Patient Reported Data Patient Survey Ortho [facility]BERD Allergies Active Allergy Reactions Severity Noted Date Comments Azithromycin Other (Please comment) 12/04/2021 QTC prolongation at [facility] Celecoxib Hives,Rash High 03/24/2013 Other reaction(s): [...] evening. 60 Tablet 5 01/02/2023 Active Ipratropium [place] 0.03 % Nasal Solution Administer 2 Sprays into nostril in the morning and 2 Sprays before bedtime. 0 Active Vitamin B-12 100 MCG Oral Tablet (vitamin B-12) Take 1 Tablet by mouth in the morning. 30 Tablet 3 02/13/2023 Active Folic Acid 1 MG Oral TabletIndications:C hronic atrial fibrillation ([facility]) TAKE ONE TABLET BY MOUTH EVERY MORNING 100 Tablet 1 02/03/2023 02/03/2024 Active Torsemide 10 MG Oral Tablet (Demadex)Indication s:Chronic diastolic heart failure due to valvular disease ([facility]) TAKE ONE TABLET BY [...] 3 08/05/2022 08/05/2023 Active OneTouch Delica Plus [id number] USE 2 TIMES A DAY DIRECTED 200 [...] Active Problems Problem Noted Date Atherosclerosis of [place] coronary arter y without angina pectoris 02/13/2023 Last Assessment & Plan: Continue statin, sotalol. 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 Last Assessment & Plan: Now just [...] Juvenal Carvalho, [address] [place] [address] 03/06/2023 Hospital Encounter Cardiac Mottler Machine Feeder Wilbur Rivera MD [address] [place], [place] [id number] 03/06/2023 Surgery Cardiac Mottler Machine Feeder Wilbur Rivera MD [address] [place] [address] TRANSCATHETER MITRAL VALVE REPAIR 03/06/2023 Office Visit Cardiology [place], Cardiac [facility] [address] [place] [address] 03/10/2023 Home Visit [facility] Karlene Zepeda RN [address] [place] [address] 03/17/2023 Office Visit Cardiology Stephen Hewitt, DO [address] [place] [address] 03/19/2023 Imaging Radiology 04/02/2023 Office Visit Vascular Surgery Stephen Wright PA-C [address] [place] [address] 04/07/2023 Office Visit Gastroenterology Janine Cunningham CRNP [address] [place] [address] 04/11/2023 Office Visit Hematology Oncology Nereyda Metz CRNP [address] [place] [address] 05/09/2023 Office Visit Nephrology Rosario Green MD [address] [place] [address] 05/22/2023 Office Visit Ophthalmology Wilbur Benavides DO [address] [place] [address] 05/23/2023 Office Visit Family Medicine Florentin Calvo, DO [address] [place] [address] 10/24/2023 Office Visit Gynecology Oncology Chris Peng PA-C [address] [place] [address] Scheduled Procedures Name Priority Associated Diagnoses Date/Ti me TRANSCATHETER MITRAL VALVE REPAIR Mitral valve regurgitation 03/06/2023 6:00 AM EDT Health Maintenance Due Date Last Done Comments DIABETES-EYE EXAM 04/11/2023 04/11/2022, , 04/11/2022, Additional history exists Influenza Vaccine (FLU shot) (#1) 2023 05/15/2022, 05/22/2021, 04/19/2020, Additional history exists CKD PHOS USE SMARTSET 10741 05/01/2023 09/0 02/2022, 04/03/2022, 12/05/2020, Additional history [...] Additional history exists CKD HGB USE SMARTSET 87637 02/22/202402/21, 02/21/2023, 02/05/2023, Additional history exists DXA [...] this encounter Medical Devices Implanted Type Area Core Java Engineer Device Identifier Shelf Expiration Date Model / Serial / Lot Cath Thermodilution 6fr - [id number] Implanted:Qty: 1 on 01/24/2023 by Wilbur Rivera MD at [facility] [employer] TERE [id number] 10/15/2024 [id number] / / [id number] documented as of this encounter Advance Directives Documents on File Type Date Recorded Patient Nurse Research Expl anation Advance Directives and Living Will 11/29/2022 ADVANCE DIRECTIVE / LIVING WILL Power of Heat Treater Apprentice 11/29/2022 POWER OF A TTORNEY Advance Directives and Living Will 10/24/2014 ADVANCE DIRECTIVE / LIVING WILL Power of Heat Treater Apprentice 10/24/2014 POWER OF A TTORNEY Latest [...] Agen t (per Health Care Power of Heat Treater Apprentice document) Care Teams Metal Baler Relationship Specialty Start Date End Date Florentin Calvo, [address] [place] [address] PCP - General Internal Medicine 03/24/13 documented as of this encounter
--- OUTSIDE RECORDS SUMMARY | 2023-08-14 23:44 | External Medical Summary ---
Author Name Unknown Address Unknown Organization K01:[facility] [place] - [address] [place] [address] Laboratory Report Ordering Provider Test Date Status GARRY BARCENAS 03/04/2023 09:12:08 Final Exclude Heart Failure: <300 pg/mL
Diagnose Heart Failure:
Age <50 yr: >450 pg/mL
50-75 yr: >900 pg/mL
>75 yr: >1800 pg/mL
GFR is 30-59 mL/min: >1200 pg/mL or Age- adjusted values
GFR <30 mL/min: do not use, not reliable

Prognostic threshold: 1000 pg/mL Observation Date Value Abnormality Reference (Units ) Status BNP, Pro-hormone 03/04/2023 09:12:08 [id number] Above high no rmal <300 (pg/mL) Final Performing Location [facility] [place] - [facility] [address] [place] [address]
--- OUTSIDE RECORDS SUMMARY | 2023-08-14 23:44 | External Medical Summary | Summary of Care ---
Author Name Unknown Organization [facility] Address [address] [place] [address] Phone [phone] Care Team Providers Care Inspector Health Care Facilities Name Role Phone Florentin Calvo DO Primary Care Provider [phone] Reason for Visit * Reason Comments Knee Pain Bilateral knee Rt > LT Encounter Details Date Type Department Care Team Description 03/04/2023 Office Visit [facility] [address] [facility] [address] Juvenal Carvalho DO [address] [facility] [place] [address] Acute pain of right knee*; Primary osteoarthritis of both knees Allergies Active Allergy Reactions Severity Noted Date [...] A1c goal of less than 7.0% ([facility]) Use up to 1 [...] evening. 60 Tablet 5 01/02/2023 Active Ipratropium [place] 0.03 % Nasal Solution Administer 2 Sprays into nostril in the morning and 2 Sprays before bedtime. 0 Active Vitamin B-12 100 MCG Oral Tablet (vitamin B-12) Take 1 Tablet by mouth in the morning. 30 Tablet 3 02/13/2023 Active Folic Acid 1 MG Oral TabletIndications:C hronic atrial fibrillation ([facility]) TAKE ONE TABLET BY MOUTH EVERY MORNING 100 Tablet 1 02/03/2023 02/03/2024 Active Torsemide 10 MG Oral Tablet (Demadex)Indication s:Chronic diastolic heart failure due to valvular disease ([facility]) TAKE ONE TABLET BY [...] Tablet (Lipitor)Indication s:PVD (peripheral vascular disease) ([facility]),Type 2 diabetes mellitus with stage 3a chronic kidney disease and hypertension ([facility]) TAKE ONE TABLET BY MOUTH EVERY DAY DIRECTED 100 Tablet 1 08/20/2022 08/20/2023 Active Montelukast Sodium 10 MG Oral Tablet (Singulair)Indicati ons:Moderate persistent asthma without complication TAKE ONE TABLET BY MOUTH AT BEDTIME 100 Tablet 3 08/05/2022 08/05/2023 Active OneTouch Delica Plus [id number] USE 2 TIMES A DAY DIRECTED 200 [...] Active Problems Problem Noted Date Atherosclerosis of [place] coronary arter y without angina pectoris 02/13/2023 [...] Obstructive sleep apnea of adult 015 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 Inga Barakat is here with son Last seen by me on 12/17/22 and had b/l PRP TODAY: Left is doing well, had right knee "give out" and fell on the knee onto floor December 2022. Still having pain and a slight sensation of instability, no catching or locking. Pt overall is feeling slightly better 20-25% . Formal physical therapy YES Previous knee injuries include: -no previous knee injuries or surgeries ROS EXAM:Constitional: No change in weight, No weakness, No fatigue and No fevers, sweats, or chills Patient Active Problem List Diagnosis Code Type 2 diabetes mellitus with hemoglobin A1c goal of less than 7.0% ([facility]) E11.9 Vertigo R42 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 claudication M48.061 Hypothyroidism E03.9 Displacement of cervical intervertebral disc without myelopathy M50.20 Meniere's disease H81.09 Paroxysmal atrial fibrillation ([facility]) I48.0 Obstructive sleep apnea of adult G47.33 Tremor R25.1 Iron deficiency anemia D50.9 Angiodysplasia of colon with hemorrhage K55.21 Acquired renal cyst N28.1 Controlled substance agreement signed Z79.899 Type 2 diabetes mellitus with polyneuropathy ([facility]) E11.42 Secondary hyperparathyroidism, renal ([facility]) N25.81 Pulmonary hypertension ([facility]) I27.20 Current moderate episode of major depressive disorder without prior episode ([facility]) F32.1 Moderate persistent asthma without complication J45.40 Gastro-esophageal reflux disease without esophagitis K21.9 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 ([facility]) E11.319 Pure hypercholesterolemia E78.00 Aneurysm of left carotid artery ([facility]) I72.0 Aortic atherosclerosis ([facility]) I70.0 Chronic kidney disease, stage 3b ([facility]) N18.32 PVD (peripheral vascular disease) ([facility]) I73.9 Chronic diastolic CHF (congestive heart failure) ([facility]) I50.32 Type 2 diabetes mellitus with stage 3b chronic kidney disease, without long- term current use ofinsulin ([facility]) E11.22, N18.32 Anemia D64.9 Cardiac pacemaker in situ Z95.0 History of endometrial cancer Z85.42 Normocytic anemia D64.9 Severe mitral valve regurgitation I34.0 Primary osteoarthritis of right knee M17.11 Severe tricuspid regurgitation I07.1 History of TIA (transient ischemic attack) Z86.73 Atherosclerosis of [place] coronary artery without angina pectoris I25.10 Current Outpatient Medications Medication Sig Dispense Refill ferrous sulfate (FEOSOL) 325 (65 FE) MG Tablet Take 1 Tab by mouth 2 times a day. 180 Tab 1 StumbleUpon Verio w/Device Kit Use up to 1 [...] by mouth at bedtime. 60 Tablet 11 Polyethylene Glycol 3350 17 GM Oral Packet Take 1 Packet by mouth daily as needed for Constipation. Fluticasone-Salmeterol 250-50 MCG/ACT Inhalation Aerosol Powder Breath [...] in the evening. 60 Tablet 5 Ipratropium [place] 0.03 % Nasal Solution Administer 2 Sprays into nostril in the morning and 2Sprays before bedtime. Vitamin B-12 100 MCG Oral Tablet (vitamin B-12) Take 1 Tablet by mouth in the morning. 30 Tablet 3 Folic Acid 1 MG Oral Tablet TAKE ONE TABLET BY MOUTH EVERY MORNING 100 Tablet 1 Torsemide 10 MG Oral Tablet (Demadex) TAKE ONE TABLET BY MOUTH EVERY MORNING AND 1 TABLET 4-5 HOURS LATER 100 Tablet 3 Levothyroxine Sodium 125 MCG Oral Tablet [...] TAKE ONE TABLET BY MOUTH EVERY DAY [id number] Tablet 1 Montelukast Sodium 10 MG Oral Tablet (Singulair) TAKE ONE TABLET BY MOUTH AT BEDTIME 100 Tablet3 OneTouch Delica Plus [id number] USE 2 TIMES A DAY DIRECTED 200 Each 3 Sotalol HCl 80 MG Oral Tablet (Betapace) TAKE ONE-HALF TABLET BY MOUTH EVERY DAY IN THE MORNINGAND 1/2 TABLET BEFORE BEDTIME. 90 Tablet 3 Sertraline HCl 50 MG Oral Tablet (Zoloft) Take 3 Tablets by mouth in the morning. 100 Tablet 3 Current Facility-Administered Medications Medication Dose Route Frequency Provider Last Rate Last Admin Albuterol Sulfate (Proventil) (2.5 MG/3ML) 0.083% inhalation solution 2.5 mg 2.5 mg Nebulizer PRN bAigail Goncalves PA-C Albuterol Sulfate (Proventil) (5 MG/ML) 0.5% *conc* inhalation solution 2.5 mg 2.5 mg NebulizerPRBello Goncalves PA-C Albuterol Sulfate (Proventil) (5 MG/ML) 0.5% *conc* inhalation solution 2.5 mg 2.5 mg NebulizerPRJESS Arevalo Albuterol Sulfate (Proventil) (2.5 MG/3ML) 0.083% inhalation solution 2.5 mg 2.5 mg Nebulizer PRN JESS Vaca 2.5 mg at 10/31/22 1441 Hemoglobin AIC Results: Lab Results Component Value Date/Time HEMOGLOBIN A1C - [facility] 6.5 (H) 02/21/2023 12:31 PM HEMOGLOBIN A1C - [facility] 6.2 (H) 08/27/2022 04:09 PM HEMOGLOBIN A1C - [facility] 5.8 (H) 04/03/2022 09:59 AM HEMOGLOBIN A1C - [facility] 6.4 (H) 06/13/2020 03:27 PM HEMOGLOBIN A1C - [facility] 6.5 (H) 01/28/2020 09:57 AM HEMOGLOBIN A1C - [facility] 6.6 (H) 01/03/2020 12:07 PM Physical Exam General: in no acute distress Mood and Affect: normal Gait and Station: mild antalgic, using walker Knee Exam, bilateral Alignment: normal Bilateral Effusion: 1+ Right neg left Palpation: tenderness to palpation moderate on the right lateal and medial jt line ROM: R - Flexion - 120 degrees, Extension - 0 degrees L - Flexion - 120 degrees, Extension -0 degrees R- Strength: Extension - 5/5 Flexion - 5/5 L - Strength: Extension - 5/5 Flexion - 5/5 Ligament tests/stability: No gross deficits Meniscus tests: Christine - negative RIGHT Popliteal mass - negative RIGHT Radiology (I have personally reviewed the films done today and compared to 10/30/22 : RIGHt knee: mild patella fem OA, mod lateral OA, unchanged Assessment and Plan: reviewed repeat PRP, watchful waiting and when to return, f/u PRN, most likelyjust exacerbated her OA Acute pain of right knee (Primary) - XR KNEE 3 VIEWS Primary osteoarthritis of both knees - XR KNEE 3 VIEWS Juvenal Carvalho DO Primary Care Sports Medicine Orthopaedics [facility] [address] [facility] [address] documented in this encounter Nursing Notes * Dayan Lopez LPN - 03/04/2023 8:24 AM EDT Bilateral PRPs 12/17/22. Fell in December, injuring right knee. Dayan Beth documented in this encounter Plan of Treatment Upcoming Encounters Date Type Specialty Care Team Description 03/04/2023 Laboratory Laboratory [place], [facility] [address] [facility], [place] [address] Strategic Product Innovations Research Other*[id number]; Aortic stenosis 03/06/2023 Hospital Encounter Cardiac Ui Developer Wilbur Rivera MD [address] [place] [facility] [address] 03/06/2023 Surgery Cardiac Ui Developer Wilbur Rivera MD [address] [facility] [place] [address] TRANSCATHETER MITRAL VALVE REPAIR 03/06/2023 Office Visit Cardiology [place], Cardiac [facility] [address] [place] [facility] [place] [address] 03/10/2023 Home Visit [facility] Karlene Zepeda RN [address] [facility] [place] [address] 03/17/2023 Office Visit Cardiology Stephen Hewitt, DO [address] [place] [facility] [place] [address] 03/19/2023 Imaging Radiology 04/02/2023 Office Visit Vascular Surgery Stephen Wright PA-C [address] [place], [place] [address] 04/07/2023 Office Visit Gastroenterology Janine Cunningham CRNP [address] [place] [facility] [place] [address] 04/11/2023 Office Visit Hematology Oncology Nereyda Metz CRNP [address] [place] [address] 05/09/2023 Office Visit Nephrology Rosario Green MD [address] [place] [address] 05/22/2023 Office Visit Ophthalmology Wilbur Benavides DO [address] [place] [address] 05/23/2023 Office Visit Family Medicine Florentin Calvo, DO [address] [place] [address] 10/24/2023 Office Visit Gynecology Oncology Chris Peng PA-C [address] [place] [address] Pending Results Name Type Priority Associated Diagnoses Date /Time XR KNEE 3 VIEWS Medical Imaging Routine Primary osteoarthritis of both knees Acute pain of right knee 03/04/2023 8:31 AM EDT Scheduled Procedures Name Priority Associated Diagnoses Date/Ti me TRANSCATHETER MITRAL VALVE REPAIR Mitral valve regurgitation 03/06/2023 6:00 AM EDT Health Maintenance Due Date Last Done Comments DIABETES-EYE EXAM 04/11/2023 04/11/2022, , 04/11/2022, Additional history exists Influenza Vaccine (FLU shot) (#1) 2023 05/15/2022, 05/22/2021, 04/19/2020, Additional history exists CKD PHOS USE SMARTSET 10015 05/01/2023 09/0 02/2022, 04/03/2022, 12/05/2020, Additional history [...] Additional history exists CKD HGB USE SMARTSET 56642 02/22/202402/21, 02/21/2023, 02/05/2023, Additional history exists DXA [...] this encounter Medical Devices Implanted Type Area Planning Engineer Device Identifier Shelf Expiration Date Model / Serial / Lot Cath Thermodilution 6fr - [id number] Implanted:Qty: 1 on 01/24/2023 by Wilbur Rivera MD at [facility] [place] [employer] [id number] 10/15/2024 [id number] / / [id number] documented as of this encounter Visit Diagnoses Diagnosis Acute pain of right knee- Primary Primary osteoarthritis of both knees Primary localized osteoarthrosis, lower leg MyCode Research Other*[id number] Aortic stenosis Aortic valve disorders Mitral valve regurgitation Mitral valve disorders documented in this encounter Advance Directives Documents on File Type Date Recorded Patient Real Estate Management Specialist Expl anation Advance Directives and Living Will 11/29/2022 ADVANCE DIRECTIVE / LIVING WILL Power of Hand Ii Thermal Cutter 11/29/2022 POWER OF A TTORNEY Advance Directives and Living Will 10/24/2014 ADVANCE DIRECTIVE / LIVING WILL Power of Hand Ii Thermal Cutter 10/24/2014 POWER OF A TTORNEY Latest [...] Agents on File Name Relationship [facility] Bright Barakat Adult Child Health Care Agen t (per Health Care Power of Hand Ii Thermal Cutter document) Care Teams Inspector Health Care Facilities Relationship Specialty Start Date End Date Florentin Calvo, [address] [place] [address] PCP - General Internal Medicine 03/24/13 documented as of this encounter
--- OUTSIDE RECORDS SUMMARY | 2023-08-14 23:44 | External Medical Summary | Summary of Care ---
Author Name Unknown Organization [facility] Address [address] [place] [address] Phone [phone] Care Team Providers Care Cardiology Consultant Name Role Phone Maxinezaire Florentin Hernandez DO Primary Care Provider [phone] Encounter Details Date Type Department Care Team [...] evening. 60 Tablet 5 01/02/2023 Active Ipratropium [place] 0.03 % Nasal Solution Administer 2 Sprays into nostril in the morning and 2 Sprays before bedtime. 0 Active Vitamin B-12 100 MCG Oral Tablet (vitamin B-12) Take 1 Tablet by mouth in the morning. 30 Tablet 3 02/13/2023 Active Folic Acid 1 MG Oral TabletIndications:C hronic atrial fibrillation ([facility]) TAKE ONE TABLET BY MOUTH EVERY MORNING 100 Tablet 1 02/03/2023 02/03/2024 Active Torsemide 10 MG Oral Tablet (Demadex)Indication s:Chronic diastolic heart failure due to valvular disease ([facility]) TAKE ONE TABLET [...] 3 08/05/2022 08/05/2023 Active OneTouch Delica Plus [id number] USE 2 TIMES A DAY DIRECTED 200 [...] Active Problems Problem Noted Date Atherosclerosis of [place] coronary arter y without angina pectoris 02/13/2023 [...] Obstructive sleep apnea of adult 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: Now just using [...] Juvenal Carvalho, [address] [place] [address] 03/06/2023 Hospital Encounter Cardiac Mutuel Department Manager Wilbur Rivera MD [address] [place], [place] [phone] 03/06/2023 Surgery Cardiac Mutuel Department Manager Wilbur Rivera MD [address] [place] [address] TRANSCATHETER MITRAL VALVE REPAIR 03/06/2023 Office Visit Cardiology [place], [facility] [address] [place] [address] 03/10/2023 Home Visit [facility] Karlene Zepeda RN [address] [place] [address] 03/17/2023 Office Visit Cardiology Stephen Hewitt, DO [address] [place] [address] 03/19/2023 Imaging Radiology 04/02/2023 Office Visit Vascular Surgery Stephen Wright PA-C [address] [place] [address] 04/07/2023 Office Visit Gastroenterology Janine Cunningham CRNP [address] [place] [address] 04/11/2023 Office Visit Hematology Oncology Nereyda Metz CRNP [address] [place] [address] 05/09/2023 Office Visit Nephrology Rosario Green MD [address] [place] [address] 05/22/2023 Office Visit Ophthalmology Wilbur Benavides DO [address] [place] [address] 05/23/2023 Office Visit Family Medicine Florentin Calvo, DO [address] [place] [address] 10/24/2023 Office Visit Gynecology Oncology Chris Peng PA-C [address] [place] [address] Scheduled Procedures Name Priority Associated Diagnoses Date/Ti me TRANSCATHETER MITRAL VALVE REPAIR Mitral valve regurgitation 03/06/2023 6:00 AM EDT Health Maintenance Due Date Last Done Comments DIABETES-EYE EXAM 04/11/2023 04/11/2022, , 04/11/2022, Additional history exists Influenza Vaccine (FLU shot) (#1) 2023 05/15/2022, 05/22/2021, 04/19/2020, Additional history exists CKD PHOS USE SMARTSET 58655 05/01/2023 09/0 02/2022, 04/03/2022, 12/05/2020, Additional history [...] Additional history exists CKD HGB USE SMARTSET 60842 02/22/202402/21, 02/21/2023, 02/05/2023, Additional history exists DXA [...] this encounter Medical Devices Implanted Type Area Medical Scientific Officer Device Identifier Shelf Expiration Date Model / Serial / Lot Cath Thermodilution 6fr - [id number] Implanted:Qty: 1 on 01/24/2023 by Wilbur Rivera MD at [facility] [place] [facility] [employer] [id number] 10/15/2024 [id number] / / [id number] documented as of this encounter Advance Directives Documents on File Type Date Recorded 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
--- OUTSIDE RECORDS SUMMARY | 2023-08-14 23:44 | External Medical Summary ---
Author Name Unknown Address Unknown Organization K01:[facility] [place] [address] [place] [address] Laboratory Report Ordering Provider Test Date Status DIYA SHEPHERD 03/04/2023 09:12:08 Final Observation Date Value Abnormality Reference (Units ) Status MYCODE SPECIMEN-SST 03/04/2023 09:12:08 Freezing of extracted DNA, whole blood and/or serum. Final Performing Location [facility] [place] [address] [place] [address]
--- OUTSIDE RECORDS SUMMARY | 2023-08-14 23:44 | External Medical Summary | Summary of Care ---
Author Name Unknown Organization [facility] Address [address] [place] [address] Phone [phone] Care Team Providers Care Revenue Settlements Administrator Name Role Phone Maxinezaire Florentin Hernandez DO Primary Care Provider [phone] Encounter Details Date Type Department Care Team [...] A1c goal of less than 7.0% ([facility]) Use up to 1 times [...] evening. 60 Tablet 5 01/02/2023 Active Ipratropium [place] 0.03 % Nasal Solution Administer 2 Sprays into nostril in the morning and 2 Sprays before bedtime. 0 Active Vitamin B-12 100 MCG Oral Tablet (vitamin B-12) Take 1 Tablet by mouth in the morning. 30 Tablet 3 02/13/2023 Active Folic Acid 1 MG Oral TabletIndications:C hronic atrial fibrillation ([facility]) TAKE ONE TABLET BY MOUTH EVERY MORNING 100 Tablet 1 02/03/2023 02/03/2024 Active Torsemide 10 MG Oral Tablet (Demadex)Indication s:Chronic diastolic heart failure due to valvular disease ([facility]) TAKE ONE TABLET BY MOUTH EVERY [...] Tablet (Lipitor)Indication s:PVD (peripheral vascular disease) ([facility]),Type 2 diabetes mellitus with stage 3a chronic kidney disease and hypertension ([facility]) TAKE ONE TABLET BY MOUTH EVERY DAY DIRECTED 100 Tablet 1 08/20/2022 08/20/2023 Active Montelukast Sodium 10 MG Oral Tablet (Singulair)Indicati ons:Moderate persistent asthma without complication TAKE ONE TABLET BY MOUTH AT BEDTIME 100 Tablet 3 08/05/2022 08/05/2023 Active OneTouch Delica Plus [id number] USE 2 TIMES A DAY DIRECTED 200 [...] Active Problems Problem Noted Date Atherosclerosis of minto coronary arter y without angina pectoris 02/13/2023 [...] Obstructive sleep apnea of adult 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 & Plan: Now just [...] Juvenal Carvalho, [address] [place] [address] 03/06/2023 Hospital Encounter Cardiac Adding Machine Servicer Wilbur Rivera MD [address] [place], [place] [id number] 03/06/2023 Surgery Cardiac Adding Machine Servicer Wilbur Rivera MD [address] [place] [address] TRANSCATHETER MITRAL VALVE REPAIR 03/06/2023 Office Visit Cardiology [place], Cardiac [facility] [address] [place] [address] 03/10/2023 Home Visit [facility] Karlene Zepeda RN [address] [place] [address] 03/17/2023 Office Visit Cardiology Stephen Hewitt, DO [address] [place] [address] 03/19/2023 Imaging Radiology 04/02/2023 Office Visit Vascular Surgery Stephen Wright PA-C [address] [place] [address] 04/07/2023 Office Visit Gastroenterology Janine Cunningham CRNP [address] [place] [address] 04/11/2023 Office Visit Hematology Oncology Nereyda Metz CRNP [address] [place] [address] 05/09/2023 Office Visit Nephrology Rosario Green MD [address] [place] [address] 05/22/2023 Office Visit Ophthalmology Wilbur Benavides DO [address] [place] [address] 05/23/2023 Office Visit Family Medicine Florentin Calvo, DO [address] [place] [address] 10/24/2023 Office Visit Gynecology Oncology Chris Peng PA-C [address] [place] [address] Scheduled Procedures Name Priority Associated Diagnoses Date/Ti me TRANSCATHETER MITRAL VALVE REPAIR Mitral valve regurgitation 03/06/2023 6:00 AM EDT Health Maintenance Due Date Last Done Comments DIABETES-EYE EXAM 04/11/2023 04/11/2022, , 04/11/2022, Additional history exists Influenza Vaccine (FLU shot) (#1) 2023 05/15/2022, 05/22/2021, 04/19/2020, Additional history exists CKD PHOS USE SMARTSET 53434 05/01/2023 09/0 02/2022, 04/03/2022, 12/05/2020, Additional history [...] Additional history exists CKD HGB USE SMARTSET 80434 02/22/202402/21, 02/21/2023, 02/05/2023, Additional history exists DXA [...] this encounter Medical Devices Implanted Type Area Wireless Cellular Technician Device Identifier Shelf Expiration Date Model / Serial / Lot Cath Thermodilution 6fr - [id number] Implanted:Qty: 1 on 01/24/2023 by Wilbur Rivera MD at [facility] [id number] 10/15/2024 [id number] / / [id number] documented as of this encounter Advance Directives Documents on File Type Date Recorded 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
--- OUTSIDE RECORDS SUMMARY | 2023-08-14 23:44 | External Medical Summary | Summary of Care ---
Author Name Unknown Organization [facility] Address [address] [place] [address] Phone [phone] Care Team Providers Care Business Planner Name Role Phone Grey Calvo DO Primary Care Provider [phone] Encounter Details Date Type Department Care Team Description 03/03/2023 Refill [facility] [address] [place] [id number] Grey Calvo DO [address] [place] [address] Current moderate episode of major depressive disorder without prior episode (HCC) Allergies Active Allergy Reactions Severity Noted [...] hemoglobin A1c goal of less than 7.0% ([facility]) Use up to 1 times [...] daily as needed for Constipation. 0 Active Fluticasone-Salmet wero 250-50 MCG/ACT Inhalation Aerosol [...] evening. 60 Tablet 5 01/02/2023 Active Ipratropium [place] 0.03 % Nasal Solution Administer 2 Sprays into nostril in the morning and 2 Sprays before bedtime. 0 Active Vitamin B-12 100 MCG Oral Tablet (vitamin B-12) Take 1 Tablet by mouth in the morning. 30 Tablet 3 02/13/2023 Active Folic Acid 1 MG Oral TabletIndications: Chronic atrial fibrillation (HCC) TAKE ONE TABLET BY MOUTH EVERY MORNING 100 Tablet 1 02/03/2023 4 Active Torsemide 10 MG Oral Tablet (Demadex)Indicatio ns:Chronic diastolic heart failure due to valvular disease ([facility]) TAKE ONE TABLET BY MOUTH EVERY MORNING AND 1 TABLET 4-5 HOURS LATER 100 Tablet 3 01/31/2023 4 Active Levothyroxine Sodium 125 MCG Oral [...] Oral Tablet (Lipitor)Indicatio ns:PVD (peripheral vascular disease) ([facility]),Type 2 diabetes mellitus with stage 3a chronic kidney disease and hypertension ([facility]) TAKE ONE TABLET BY MOUTH EVERY DAY DIRECTED 100 Tablet 1 08/20/2022 3 Active Montelukast Sodium 10 MG Oral Tablet (Singulair)Indicat ions:Moderate persistent asthma without complication TAKE ONE TABLET BY MOUTH AT BEDTIME 100 Tablet 3 08/05/2022 3 Active OneTouch Delica Plus [id number] USE 2 TIMES A DAY DIRECTED 200 Each 3 04/30/2022 3 Active Sotalol HCl 80 MG Oral Tablet (Betapace)Indicati ons:Chronic atrial fibrillation (HCC) TAKE ONE-HALF TABLET BY MOUTH EVERY DAY IN THE MORNING AND 1/2 TABLET BEFORE BEDTIME. 90 Tablet 3 04/03/2022 3 Active Sertraline HCl 50 MG Oral Tablet (Zoloft)Indication s:Current moderate episode of major depressive disorder without prior episode (HCC) Take 3 Tablets by mouth in the morning. 100 Tablet 3 03/03/2023 Active Sertraline HCl 50 MG Oral Tablet (Zoloft)Indication s:Current moderate episode of major depressive disorder without prior episode (HCC) Take 3 Tablets by mouth in the morning. 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 * Telephone Encounter - RADHA Cohen - 03/03/2023 1:17 PM EDT Pt calling in to request refill. Last ordered: 02/13/23 Pending Prescriptions: Disp Refills Sertraline HCl 50 MG Oral Tablet (Zoloft) 90 Tab*5 Sig: Take 3 Tablets by mouth in the morning. Last Visit: 02/18/2023 (in office), 09/18/2022 (telemedicine) Next Visit: 05/23/2023 Last date the medication was ordered: 02.13.23 Patient Active Problem List Diagnosis Code Type 2 diabetes mellitus with hemoglobin A1c goal of less than 7.0% ([facility]) E11.9 Vertigo R42 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 claudication M48.061 Hypothyroidism E03.9 Displacement of cervical intervertebral disc without myelopathy M50.20 Meniere's disease H81.09 Paroxysmal atrial fibrillation ([facility]) I48.0 Obstructive sleep apnea of adult G47.33 Tremor R25.1 Iron deficiency anemia D50.9 Angiodysplasia of colon with hemorrhage K55.21 Acquired renal cyst N28.1 Controlled substance agreement signed Z79.899 Type 2 diabetes mellitus with polyneuropathy ([facility]) E11.42 Secondary hyperparathyroidism, renal ([facility]) N25.81 Pulmonary hypertension ([facility]) I27.20 Current moderate episode of major depressive disorder without prior episode ([facility]) F32.1 Moderate persistent asthma without complication J45.40 Gastro-esophageal reflux disease without esophagitis K21.9 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 ([facility]) E11.319 Pure hypercholesterolemia E78.00 Aneurysm of left carotid artery ([facility]) I72.0 Aortic atherosclerosis ([facility]) I70.0 Chronic kidney disease, stage 3b ([facility]) N18.32 PVD (peripheral vascular disease) ([facility]) I73.9 Chronic diastolic CHF (congestive heart failure) ([facility]) I50.32 Type 2 diabetes mellitus with stage 3b chronic kidney disease, without long- term current use ofinsulin ([facility]) E11.22, N18.32 Anemia D64.9 Cardiac pacemaker in situ Z95.0 History of endometrial cancer Z85.42 Normocytic anemia D64.9 Severe mitral valve regurgitation I34.0 Primary osteoarthritis of right knee M17.11 Severe tricuspid regurgitation I07.1 History of TIA (transient ischemic attack) Z86.73 Atherosclerosis of iliamna coronary artery without angina pectoris I25.10 Labs: Lab Results Component Value Date/Time CREATININE - [facility] 1.7 (H) 02/21/2023 12:31 PM CREATININE - [facility] 1.3 (H) 06/13/2020 03:27 PM CREATININE VERONICA 183 06/14/2019 04:38 PM CREATININE, RANDOM URINE - [facility] 90 02/21/2023 12:33 PM CREATININE, RANDOM URINE - [facility] 161 09/21/2019 05:19 PM CREATININE-OUTSIDE LAB 1.27 (A) 08/07/2022 12:00 AM Lab Results Component Value Date/Time POTASSIUM - [facility] 4.2 02/21/2023 12:31 PM POTASSIUM - [facility] 4.5 06/13/2020 03:27 PM POTASSIUM-OUTSIDE LAB 4.6 08/07/2022 12:00 AM Lab Results Component Value Date/Time TSH - [facility] 0.32 09/24/2022 02:47 PM TSH - [facility] 0.51 01/03/2020 11:52 AM TSH - OUTSIDE LAB 2.887 11/26/2021 12:00 AM Lab Results Component Value Date/Time LDL CHOLESTEROL (CALCULATED) - [facility] 32 02/21/2023 12:31 PM LDL CHOLESTEROL (CALCULATED) - [facility] 108 06/18/2021 03:03 PM LDL CHOLESTEROL (CALCULATED) - [facility] 102 06/13/2020 03:27 PM LDL CHOLESTEROL (CALCULATED) - [facility] 103 08/20/2017 11:21 AM LDL CHOLESTEROL (DIRECT MEASURE) - [facility] 67 10/26/2021 02:36 PM LDL CHOLESTEROL (DIRECT MEASURE) - [facility] NOT APPLICABLE 06/13/2020 03:27 PM LDL CHOLESTEROL (DIRECT MEASURE) - [facility] 111 09/21/2019 05:15 PM LDL CHOLESTEROL (DIRECT MEASURE) - [facility] 147 (H) 02/27/2016 11:47 AM Lab Results Component Value Date/Time ALT - [facility] 12 02/21/2023 12:31 PM ALT - [facility] 21 07/25/2020 12:54 PM ALT-OUTSIDE LAB 24 02/17/2017 12:00 AM Hemoglobin AIC Results: Lab Results Component Value Date/Time HEMOGLOBIN A1C - [facility] 6.5 (H) 02/21/2023 12:31 PM HEMOGLOBIN A1C - [facility] 6.2 (H) 08/27/2022 04:09 PM HEMOGLOBIN A1C - [facility] 5.8 (H) 04/03/2022 09:59 AM HEMOGLOBIN A1C - [facility] 6.4 (H) 06/13/2020 03:27 PM HEMOGLOBIN A1C - [facility] 6.5 (H) 01/28/2020 09:57 AM HEMOGLOBIN A1C - [facility] 6.6 (H) 01/03/2020 12:07 PM documented in this encounter Plan of Treatment Upcoming Encounters Date Type Specialty Care Team Description 03/04/2023 Office Visit Orthopedics Juvenal Carvalho S, DO [address] [place] [address] 03/06/2023 Hospital Encounter Cardiac Java Technical Manager Wilbur Rivera MD [address] [place] [address] 03/06/2023 Surgery Cardiac Java Technical Manager Wilbur Rivera MD [address] [place] [address] TRANSCATHETER MITRAL VALVE REPAIR 03/06/2023 Office Visit Cardiology Jackson, Cardiac Recovery Surya [address] [place] [address] 03/10/2023 Home Visit [facility] Karlene Zepeda RN [address] [place] [address] 03/17/2023 Office Visit Cardiology Stephen Hewitt DO [address] [place] [address] 03/19/2023 Imaging Radiology 04/02/2023 Office Visit Vascular Surgery Stephen Wright PA-C [address] [place] [address] 04/07/2023 Office Visit Gastroenterology Janine Cunningham CRNP [address] [place] [address] 04/11/2023 Office Visit Hematology Oncology Nereyda Metz CRNP [address] [place] [address] 05/09/2023 Office Visit Nephrology Rosario Green MD [address] [place] [address] 05/22/2023 Office Visit [facility]hthal[facility]ides [facility] [address] [facility] [address] 05/23/2023 Office Visit Family Medicine Grey Calvo, DO [address] [facility] [place] [address] 10/24/2023 Office Visit [facility]necology Oncology Chris [facility]C [address] [facility] [address] Scheduled Procedures Name Priority Associated Diagnoses Date/Ti me TRANSCATHETER MITRAL VALVE REPAIR Mitral valve regurgitation 03/06/2023 6:00 AM EDT Health Maintenance Due Date Last Done Comments DIABETES-EYE EXAM 04/11/2023 04/11/2022, , 04/11/2022, Additional history exists Influenza Vaccine (FLU shot) (#1) 2023 05/15/2022, 05/22/2021, 04/19/2020, Additional history exists CKD PHOS USE SMARTSET 96650 05/01/2023 09/0 02/2022, 04/03/2022, 12/05/2020, Additional history [...] Additional history exists CKD HGB USE SMARTSET 75616 02/22/202402/21, 02/21/2023, 02/05/2023, Additional history exists DXA [...] this encounter Medical Devices Implanted Type Area Cna Caregiver Device Identifier Shelf Expiration Date Model / Serial / Lot Cath Thermodilution 6fr - [id number] Implanted:Qty: 1 on 01/24/2023 by Wilbur Rivera MD at [facility] [employer]) [id number] 10/15/2024 [id number] / / [id number] documented as of this encounter Visit Diagnoses Diagnosis Current moderate episode of major depressive disorder without prior episode (HCC) Mitral valve regurgitation Mitral valve disorders documented in this encounter Advance Directives Documents on File Type Date Recorded Patient Union Contract Representative Expl anation Advance Directives and Living Will 11/29/2022 ADVANCE DIRECTIVE / LIVING WILL Power of Cigar Tobacco Rehandler 11/29/2022 POWER OF A TTORNEY Advance Directives and Living Will 10/24/2014 ADVANCE DIRECTIVE / LIVING WILL Power of Cigar Tobacco Rehandler 10/24/2014 POWER OF A TTORNEY Latest Code [...] Agen t (per Health Care Power of Cigar Tobacco Rehandler document) Care Teams Business Planner Relationship Specialty Start Date End Date Grey Calvo DO [address] [place] [address] PCP - General Internal Medicine 03/24/13 documented as of this encounter
--- OUTSIDE RECORDS SUMMARY | 2023-08-14 23:44 | External Medical Summary ---
Author Name Unknown Address Unknown Organization [id number]:[facility] [address] [place] [address] Laboratory Report Ordering Provider Test Date Status NARINDERDORA VIERAWAL 03/04/2023 09:12:08 Final Warfarin Therapy
INR: 2 .0-3.0 conventional anticoagulation
INR: 2.5- 3.5 high intensity anticoagulation Observation Date Value Abnormality Reference (Units ) Status PT 03/04/2023 09:12:08 14.8 11.6-15.2 (seconds) Final INR 03/04/2023 09:12:08 1.1 0.8-1.2 Final Performing Location [facility] [place] [address]
--- OUTSIDE RECORDS SUMMARY | 2023-08-14 23:44 | External Medical Summary ---
Author Name Unknown Address Unknown Organization [id number]:[facility] - [address] [place] [address] Laboratory Report Ordering Provider Test Date Status GARRY BARCENAS 03/04/2023 09:12:08 Final Observation Date Value Abnormality Reference (Units ) Status Albumin 03/04/2023 09:12:08 4.2 3.8-5.0 (g/dL) Final AST (Aspartate aminotransferase) 03/04/2023 09:12:08 35 10-35 (U/L) Final Alk Phos 03/04/2023 09:12:08 186 Above high normal 35-130 (U/L) Final ALT (Alanine aminotransferase) 03/04/2023 09:12:08 18 10-35 (U/L) Final Bilirubin, Total 03/04/2023 09:12:08 0.5 <=1.2 (mg/dL) Final Bilirubin, Direct 03/04/2023 09:12:08 <0.2 0.0-0.3 (mg/dL) Final Protein 03/04/2023 09:12:08 6.7 6.0-8.3 (g/dL) Final Performing Location [facility] [place] [address]
--- OUTSIDE RECORDS SUMMARY | 2023-08-14 23:44 | External Medical Summary ---
Author Name Unknown Address Unknown Organization K01:[facility] [place] - [address] [place] [address] Laboratory Report Ordering Provider Test Date Status DIYA SHEPHERD 03/04/2023 09:12:08 Final Observation Date Value Abnormality Reference (Units ) Status MYCODE SPECIMEN-SST 03/04/2023 09:12:08 Freezing of extracted DNA, whole blood and/or serum. Final Performing Location [facility] [place] - [address] [place] [address]
--- OUTSIDE RECORDS SUMMARY | 2023-08-14 23:45 | External Medical Summary | Summary of Care ---
Author Name Unknown Organization [facility] Address [address] [place] [address] Phone [phone] Care Team Providers Care Associate Professor Of Biostatistics Name Role Phone Florentin Clavo DO Primary Care Provider [phone] Reason for Visit * Reason Comments Follow Up Encounter Details Date Type Department Care Team Description 02/18/2023 Office Visit Family Practice [address] [facility] [place] [address] [place] [id number] Florentin Calvo DO [address] [place], [place] [id number] Type 2 diabetes mellitus with stage 3b chronic kidney disease, without long-term current use of insulin ([facility])*; Paroxysmal atrial fibrillation (HCC); Secondary hyperparathyroidism, renal (HCC); Chronic diastolic CHF (congestive heart failure) ([facility]); PVD (peripheral vascular disease) ([facility]); 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 claudication; Acquired hypothyroidism; Displacement of cervical intervertebral disc without myelopathy; Tremor; Iron deficiency anemia, unspecified iron deficiency anemia type; Atherosclerosis of [place] coronary artery of [place] heart without angina pectoris; Current moderate episode of major depressive disorder without prior episode (HCC); Moderate persistent asthma without complication; Gastro-esophageal reflux disease without esophagitis; Pure hypercholesterolemia; Cardiac pacemaker in situ; History of endometrial cancer; Severe mitral valve regurgitation; Severe tricuspid regurgitation Allergies Active Allergy Reactions Severity Noted Date Comments Azithromycin Other (Please comment) 12/04/2021 QTC prolongation at [facility] Celecoxib Hives,Rash High 03/24/2013 Other [...] as of this encounter (statuses as of 02/18/2023) Medications Medication Sig Dispensed Refills Start Date [...] as needed. 100 Tablet 0 12/04/2021 Active Sotalol HCl 80 MG Oral Tablet (Betapace)Indicat ions:Chronic atrial fibrillation (HCC) Take by mouth 0.5 Tablets in the morning AND 0.5 Tablets before bedtime. 0.5 tablet twice daily. 90 Tablet 3 04/03/2022 Active Vitamin D3 50 MCG (2000 UT) Oral CapsuleIndication s:Vitamin D deficiency Take 2 Capsules by mouth in the morning. 60 Capsule 5 04/04/2022 Active OneTouch Delica Plus [id number] USE TWO TIMES A DAY DIRECTED 200 Each 3 04/30/2022 Active Levalbuterol Tartrate 45 MCG/ACT Inhalation Aerosol (Xopenex HFA)Indications:A sthma with severity to be determined Inhale by mouth 1 Puff every 4 hours as needed for Wheezing. 15 g 12 06/13/2022 Active Montelukast Sodium 10 MG Oral Tablet (Singulair)Indica tions:Moderate persistent asthma without complication Take 1 Tablet (10 mg) by mouth every night at bedtime. 100 Tablet 3 08/05/2022 Active Atorvastatin Calcium 20 MG Oral Tablet (Lipitor)Indicati ons:PVD (peripheral vascular disease) ([facility]),Type 2 diabetes mellitus with stage 3a chronic kidney disease and hypertension ([facility]) Take 1 Tablet by mouth in the morning. 100 Tablet 1 08/20/2022 Active Allopurinol 100 MG Oral Tablet (Zyloprim)Indicat ions:Gout, arthropathy Take 2 Tablets by mouth at bedtime. 60 Tablet 11 10/03/2022 Active Polyethylene Glycol 3350 17 GM Oral Packet Take 1 Packet by mouth daily as needed for Constipation. 0 Active Fluticasone-Salme terol 250-50 MCG/ACT Inhalation Aerosol [...] evening. 60 Tablet 5 01/02/2023 Active Ipratropium [place] 0.03 % Nasal Solution Administer 2 Sprays into nostril in the morning and 2 Sprays before bedtime. 0 Active ALPRAZolam 0.5 MG Oral Tablet (xaNAX)Indication s:Persistent insomnia,Anxiety Take 1 Tablet by mouth at bedtime as needed for Sleep or Anxiety. Uses half of a tablet as needed for anxiety and sleep 90 Tablet 0 01/17/2023 Active Torsemide 10 MG Oral Tablet (Demadex)Indicati ons: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) Take 1 tablet in the morning and 1 tablet 4-6 hours later 100 Tablet 3 01/31/2023 Active Levothyroxine Sodium 125 MCG Oral Tablet (Levoxyl) Take 1 Tablet by mouth daily first thing in the morning. 100 Tablet 1 01/31/2023 Active Folic Acid 1 MG Oral TabletIndications :Chronic atrial fibrillation (HCC) Take 1 Tablet by mouth in the morning. 100 Tablet 1 02/03/2023 Active Sertraline HCl 50 MG Oral Tablet (Zoloft)Indicatio ns:Current moderate episode of major depressive disorder without prior episode (HCC) Take 3 Tablets by mouth in the morning. 90 Tablet 5 02/13/2023 Active Vitamin B-12 100 MCG Oral Tablet (vitamin B-12) Take 1 Tablet by mouth in the morning. 30 Tablet 3 02/13/2023 Active BiPAP every night at bedtime. 0 3 Discontinued Hospital, Clinic, or Other Facility [...] as of this encounter (statuses as of 02/18/2023) Active Problems Problem Noted Date Atherosclerosis of [place] coronary arter y without angina pectoris 02/13/2023 Last Assessment & Plan: Continue statin, sotalol. 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 Last Assessment & Plan: Now just using [...] as of this encounter (statuses as of 02/18/2023) Resolved Problems Problem Noted Date Resolved Date [...] as of this encounter (statuses as of 02/18/2023) Immunizations Name Administration Dates Next Due COVID-19 mRNA, LNP-s, No Pre serve, 2-Dose Series (Moderna) 06/23/2021,10/25/2020,09/28/2020 COVID-19, LNP-s, No Preserve , Larry-sucrose, Ages 12+ (Pfizer) 04/09/2022 Covid-19, Mrna, Lnp-s, Pf, B ivalent, 30 Mcg, IM, 12 yrs and above (Aspyra) 09/10/2022 HEP A - Hepatitis A (Adult [...] Sign Reading Time Taken Comments Blood Pressure 118/60 02/18/2023 1:41 PM EDT Pulse 62 02/18/2023 1:41 PM EDT Temperature 36 C (96.8 F) 02/18/2023 1:41 PM EDT Respiratory Rate 14 02/18/2023 1:41 PM EDT Oxygen Saturation 94% 02/18/2023 1:41 PM EDT Inhaled Oxygen Concentration - - Weight 73.6 kg (162 lb 4.8 oz) 02/18/2023 1:41 P M EDT Height 165.1 cm (5' 5") 02/18/2023 1:41 PM EDT Body Mass Index 27.01 02/18/2023 1:41 PM EDT documented in this encounter Progress Notes * Florentin Calvo, DO - 02/18/2023 2:51 PM EDT SUBJECTIVE: Inga Barakat is a 82 year old female. Chief Complaint Patient presents with Follow Up HPI: Patient is an 82 year old female with a history of Atrial Fibrillation, Pacemaker Implant, Severe Mitral Valve Regurgitation, Severe Tricuspid Regurgitation, Pulmonary HTN, CKD stage III, lumbar Spinal Stenosis, PVD of the right lower extremity, Depression, Cervical Spinal Fusion, Asthma, Essential Tremor, Adenocarcinoma of the Uterus treated with hysterectomy, Iron Deficiency Anemia, Chronic Diastolic CHF, and bilateral hearing loss that is seen for follow up. Chronic shortness of breath is has worsened. Diuretics were increased. No chest pain is present. Patient is scheduled for possible Mitral and Tricuspid valve repair. Renal function has worsened as well. Patient has fatigue as well. Patient is no longer able to tolerate BiPAP and has stopped wearing the equipment. She is wearing nocturnal oxygen. Patient Active Problem List Diagnosis Code Type 2 diabetes mellitus with hemoglobin A1c goal of less than 7.0% ([facility]) E11.9 Vertigo R42 Spinal stenosis [...] with polyneuropathy (HCC) E11.42 Secondary hyperparathyroidism, renal ([facility]) N25.81 Pulmonary hypertension ([facility]) I27.20 Current moderate episode of major depressive disorder without prior episode ([facility]) F32.1 Moderate persistent asthma without complication J45.40 Gastro-esophageal reflux disease without esophagitis K21.9 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 ([facility]) E11.319 Pure hypercholesterolemia E78.00 Aneurysm of left carotid artery ([facility]) I72.0 Aortic atherosclerosis ([facility]) I70.0 Chronic kidney disease, stage 3b ([facility]) N18.32 PVD (peripheral vascular disease) ([facility]) I73.9 Chronic diastolic CHF (congestive heart failure) ([facility]) I50.32 Type 2 diabetes mellitus with stage 3b chronic kidney disease, without long- term current use ofinsulin ([facility]) E11.22, N18.32 Anemia D64.9 Cardiac pacemaker in situ Z95.0 History of endometrial cancer Z85.42 Normocytic anemia D64.9 Severe mitral valve regurgitation I34.0 Primary osteoarthritis of right knee M17.11 Severe tricuspid regurgitation I07.1 History of TIA (transient ischemic attack) Z86.73 Atherosclerosis of [place] coronary artery without angina pectoris I25.10 Current [...] every 6 hours as needed. 100Tablet 0 Sotalol HCl 80 MG Oral Tablet (Betapace) Take by mouth 0.5 Tablets in the morning AND 0.5 Tablets before bedtime. 0.5 tablet twice daily. 90 Tablet 3 Levalbuterol Tartrate 45 MCG/ACT Inhalation Aerosol (Xopenex HFA) Inhale by mouth 1 Puff every 4 hours as needed for Wheezing. 15 g 12 Montelukast Sodium 10 MG Oral Tablet (Singulair) Take 1 Tablet (10 mg) by mouth every night at bedtime. 100 Tablet 3 Atorvastatin Calcium 20 MG Oral Tablet (Lipitor) Take 1 Tablet by mouth in the morning. 100 Tablet 1 Allopurinol 100 MG Oral Tablet [...] in the evening. 60 Tablet 5 Ipratropium [place] 0.03 % Nasal Solution Administer 2 Sprays into nostril in the morning and 2Sprays before bedtime. ALPRAZolam 0.5 MG Oral Tablet (xaNAX) Take 1 Tablet by mouth at bedtime as needed for Sleep or Anxiety. Uses half of a tablet as needed for anxiety and sleep 90 Tablet 0 Torsemide 10 MG Oral Tablet (Demadex) Take 1 tablet in the morning and 1 tablet 4-6 hours [id number] Tablet 3 Levothyroxine Sodium 125 MCG Oral Tablet (Levoxyl) Take 1 Tablet by mouth daily first thing in the morning. 100 Tablet 1 Folic Acid 1 MG Oral Tablet Take 1 Tablet by mouth in the morning. 100 Tablet 1 Sertraline HCl 50 MG Oral Tablet (Zoloft) Take 3 Tablets by mouth in the morning. 90 Tablet 5 Vitamin B-12 100 MCG Oral Tablet (vitamin B-12) Take 1 Tablet by mouth in the morning. 30 Tablet 3 PraccelTouch Verio w/Device Kit Use up to 1 times a day. E11.9 1 Kit 0 Vitamin D3 50 MCG (2000 UT) Oral Capsule Take 2 Capsules by mouth in the morning. 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 Pleural effusion Pulmonary arterial hypertension ([facility]) Pure hypercholesterolemia 07/02/2021 PVD (peripheral vascular disease) ([facility]) 05/15/2022 Secondary hyperparathyroidism, renal ([facility]) 12/17/2018 Severe mitral valve regurgitation 10/30/2022 Severe tricuspid regurgitation 11/18/2022 Spinal stenosis 07/2002 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 claudication 03/24/2013 Vertigo 03/24/2013 Past Surgical History: Procedure Laterality Date COLONOSCOPY, DIAGNOSTIC (RECTUM) 10/12/2014 inflammatory tissue on bx, diverticulosis/[facility] COLONOSCOPY, DIAGNOSTIC (RECTUM) 01/05/2016 diverticulosis, multiple non-bleeding colonic angioectasias COLONOSCOPY, DIAGNOSTIC (RECTUM) 04/15/2016 angiodysplastic lesion, diverticulosis/COLONOSCOPY FLEXIBLE PROXIMAL DIAGNOSTIC performed by Izzy Stone MD at END[facility] COLONOSCOPY, DIAGNOSTIC (RECTUM) 11/10/2020 Hemorrhoids, multi polyps, diverticulosis in sigmoid colon/ biopsy show adenomatous polyp/ COLONOSCOPY FLEXIBLE PROXIMAL DIAGNOSTIC performed by Maine Stone MD at [facility] COLONOSCOPY, DIAGNOSTIC (RECTUM) 03/11/2022 poor prep / [facility] CORONARY ANGIOGRAPHY W/RIGHT+LEFT CATH Right 01/24/2023 CORONARY ANGIOGRAPHY W/RIGHT+LEFT CATH performed by Wilbur Rivera MD at [facility] CYSTOSCOPY 06/2012 EGD, FLEXIBLE, DIAGNOSTIC 10/12/2014 normal bx, HH/[facility] EGD, FLEXIBLE, DIAGNOSTIC 01/05/2016 ESOPHAGOGASTRODUODENOSCOPY (EGD), FLEXIBLE, TRANSORAL, DIAGNOSTIC performed by Maine Stone MD at [facility] EGD, FLEXIBLE, DIAGNOSTIC 03/11/2022 Multiple small non-bleeding fundic gland polyps / [facility] LAPAROSCOPY TOTAL HYSTX, UTERUS 250GM OR LESS TUBE/OVARY N/A 02/22/2020 ROBOTIC LAPAROSCOPIC HYSTERECTOMY REMOVAL TUBES AND OVARIES FOR UTERUS 250GM OR LESS performed by Florentin Perez MD at [facility] LAPAROSCOPY; CHOLECYSTECTOMY N/A 06/06/2020 LIGATE/CUT OVIDUCT(S) MAMMOGRAM BREAST NEEDLE BIOPSY CORE LEFT Left 09/19/2015 benign NECK SPINE FUSION (CERV, BELOW C2) 1993 1999,2011 PATIENT EDU, LUMBAR LAMINECTOMY 2001 1996 too [place] TONSILLECTOMY PRIMARY/SECONDARY LESS THAN AGE 12 Bilateral REPAIR RUPTURED ROTATOR CUFF, ACUTE Left 08/08/2015 SINUS SURGERY PROCEDURE NEC 1994 Review of patient's allergies indicates: Allergen Reactions [...] Azithromycin Other (Please comment) QTC prolongation at [facility] Nickel Swelling Other reaction(s): Unknown Review of Systems Constitutional: Positive for appetite change and fatigue. Negative for unexpected weight change. Respiratory: Positive for shortness of breath. Negative for cough and wheezing. Cardiovascular: Positive for leg swelling. Negative for chest pain and palpitations. Gastrointestinal: Negative for abdominal pain, blood in stool, constipation, diarrhea, nausea and vomiting. Genitourinary: Negative for dysuria and hematuria. Neurological: Negative for dizziness, syncope and headaches. Psychiatric/Behavioral: Negative for confusion, decreased concentration and sleep disturbance. OBJECTIVE: BP 118/60 | Pulse 62 | Temp 36 C (96.8 F) | Resp 14 | Ht 1.651 m (5' 5") | Wt 73.6 kg (162 lb 4.8 oz) | SpO2 94% | BMI 27.01 kg/m | BSA 1.84 m Physical Exam Vitals and nursing note reviewed. Constitutional: General: She is not in acute distress. Appearance: Normal appearance. She is not toxic-appearing. HENT: Head: Normocephalic and atraumatic. Cardiovascular: Rate and Rhythm: Normal rate and regular rhythm. Heart sounds: Murmur heard. Systolic murmur is present. Pulmonary: Effort: Pulmonary effort is normal. Breath sounds: No wheezing, rhonchi or rales. Abdominal: General: Bowel sounds are normal. There is no distension. Palpations: Abdomen is soft. Tenderness: There is no abdominal tenderness. Musculoskeletal: Right lower leg: Edema present. Left lower leg: Edema present. Neurological: Mental Status: She is alert and oriented to person, place, and time. Mental status is at baseline. Gait: Gait abnormal. Psychiatric: Mood and Affect: Mood normal. Behavior: Behavior normal. PLAN AND ASSESSMENT: Type 2 diabetes mellitus with stage 3b chronic kidney disease, without long-term current use of insulin ([facility]) (Primary) - HEMOGLOBIN A1C; Future; Expected date: 02/21/2023 - ALBUMIN / CREATININE RATIO, URINE; Future; Expected date: 02/21/2023 - COMPREHENSIVE METABOLIC PANEL; Future; Expected date: 02/21/2023 Paroxysmal atrial fibrillation (HCC) Continue Sotalol No anticoagulation due to GI bleeding Secondary hyperparathyroidism, renal (HCC) Chronic diastolic CHF (congestive heart failure) ([facility]) Continue Torsemide PVD (peripheral vascular disease) (HCC) 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 claudication Acquired hypothyroidism Continue levothyroxine Displacement of cervical intervertebral disc without myelopathy Tremor Iron deficiency anemia, unspecified iron deficiency anemia type Continue Ferrous Sulfate Atherosclerosis of [place] coronary artery of [place] heart without angina pectoris Current moderate episode of major depressive disorder without prior episode (HCC) Continue Sertraline Moderate persistent asthma without complication Continue Advair, and Levalbuterol Gastro-esophageal reflux disease without esophagitis Continue Pantoprazole Pure hypercholesterolemia - LIPID PANEL WITH DIRECT LDL IF TG IS HIGH; Future; Expected date: 02/21/2023 Continue Atorvastatin Cardiac pacemaker in situ History of endometrial cancer Severe mitral valve regurgitation Scheduled for repair Severe tricuspid regurgitation Scheduled for repair Follow Up: Return in about 3 months (around 05/21/2023), or if symptoms worsen or fail to improve. Florentin Calvo DO 2:51 PM 02/18/2023 * Hilda Awad LPN - 02/18/2023 1:42 PM EDT We are calling you today to ensure you have a healthy holiday season. Do you check your weight at home? yes If yes, what is your weight today? 191.0 Symptom review: Do you have any SOB at baseline: yes Do you have any cough at baseline: yes Orthopnea: none Do you have any leg swelling or abdominal fullness at baseline: sometimes (If yes, where) Current diuretic use: as directed. (if PRN, ask how often or what their criteria is) Advised patient: During this holiday season, please watch your sodium intake foods such as ham, canned goods, pork and sauerkraut and avoid adding extra salt to foods. Please be aware that this can increase your fluid retention and cause a heart failure exacerbation. Patient questions Patient advised to call if > 3 lb weight gain in 24 hours or any SOB. Script: Please know we are here to support you and any questions you have. We will plan to call again after the holidays. If you have [facility], you may also get a call from them. documented in this encounter Nursing Notes * Hilda Awad LPN - 02/18/2023 1:40 PM EDT Here for follow up, states problems with her breathing. Gets sob, using oxygen more during the day. Not using oxygen on bipap, "too many tubes'. documented in this encounter Plan of Treatment Upcoming Encounters Date Type Specialty Care Team Description 02/20/2023 Office Visit Otolaryngology Cheri Castillo PA-C [address] [place] [address] 02/21/2023 Laboratory Laboratory [facility], Lab Scenery [address] [place] [address] 02/21/2023 Nurse Only Hematology Oncology [facility], Nurse Hem Onc Scenery [address] [place] [address] 03/07/2023 Home Visit [facility] Karlene Zepeda RN [address] [place] [address] 03/17/2023 Office Visit Cardiology Stephen Hewitt DO [address] [place] [address] 03/19/2023 Imaging Radiology 04/02/2023 Office Visit Vascular Surgery Aj Sahni MD [address] [place] [address] 04/07/2023 Office Visit Gastroenterology Janine Cunningham CRNP [address] [place] [address] 04/11/2023 Office Visit Hematology Oncology Nereyda Metz CRNP [address] [place] [address] 05/09/2023 Office Visit Nephrology Rosario Green MD [address] [facility] [place] [place] [address] 05/22/2023 Office Visit Ophthalmology Wilbur Benavides, DO [address] [facility] [place] [address] 05/23/2023 Office Visit Family Medicine Florentin Calvo, DO [address] [facility] [place] [address] 10/24/2023 Office Visit Gynecology Oncology Chris Peng PA-C [address] [place] [address] Scheduled Orders Name Type Priority Associated Diagnoses Orde r Schedule HEMOGLOBIN A1C Lab Routine Type 2 diabetes mellitus with stage 3b chronic kidney disease, without long-term current use of insulin (HCC) Expected: 02/21/2023, Expires: 03/20/2024 ALBUMIN / CREATININE RATIO, URINE Lab Routine Type 2 diabetes mellitus with stage 3b chronic kidney disease, without long-term current use of insulin (HCC) Expected: 02/21/2023, Expires: 02/19/2024 LIPID PANEL WITH DIRECT LDL IF TG IS HIGH Lab Routine Pure hypercholesterolemia Expected: 02/21/2023, Expires: 02/19/2024 COMPREHENSIVE METABOLIC PANEL Lab Routine Type 2 diabetes mellitus with stage 3b chronic kidney disease, without long-term current use of insulin (HCC) Expected: 02/21/2023, Expires: 02/18/2024 Health Maintenance Due Date Last Done Comments HbA1c 02/24/2023 08/27/2022, 03/25, 10/26/2021, Additional history exists DIABETES-EYE EXAM 04/11/2023 04/11/2022, , 04/11/2022, Additional history exists Albumin/Creatinine Ratio 05/01/20232 022, 10/26/2021, 10/05/2020, Additional history exists CKD PHOS USE SMARTSET 83525 05/01/2023 09/0 02/2022, 04/03/2022, 12/05/2020, Additional history exists GFR 08/07/2023 02/05/2023, 0 09/2022, 01/21/2023, Additional history exists TSH 09/24/2023 09/24/2022, 10/2022, 02/12/2022, Additional history exists DIABETES-FOOT EXAM 10/01/2023 10/01/2022, 0 10/26/2021, 12/05/2020, Additional history exists Depression Screening, Annual for Pts 12 and Over 01/18/2024 01/17/2023 CKD HGB USE SMARTSET [id number] 02/06/202402/05, 02/05/2023, 01/24/2023, Additional history exists DXA Scan 05/07/2025 05/07/2021, 12/24, 04/12/2013, Additional history exists COLONOSCOPY-EVERY 4 YRS AGES 18-100 03/11/2026 03/11/2022, 11/10/2020, 11/10/2020, Additional history exists DTaP,Tdap,and Td Vaccines (3 - Td or Tdap) 12/29/2028 12/29/2018, 07/15/2009 Pneumococcal Vaccine: 65+ Years Completed 09/21/2015, 05/25/2012, 07/25/2007 Zoster Vaccines Completed 07/16/2019, 04/26, 03/25/2007 Influenza Vaccine (FLU shot) Completed , 05/22/2021, 04/19/2020, Additional history exists COVID-19 Vaccine Completed 09/10/2022, , 06/23/2021, Additional [...] this encounter Medical Devices Implanted Type Area Court Specialist Device Identifier Shelf Expiration Date Model / Serial / Lot Cath Thermodilution 6fr - [id number] Implanted:Qty: 1 on 01/24/2023 by Wilbur Rivera MD at [facility] [email or web address] [id number] 10/15/2024 [id number] / / [id number] documented as of this encounter Visit Diagnoses Diagnosis Type 2 diabetes mellitus with stage 3b chronic kidney disease, without long-term current use of insulin (HCC)- Primary Paroxysmal atrial fibrillation (HCC) Atrial fibrillation Secondary hyperparathyroidism, renal (HCC) Secondary hyperparathyroidism (of renal origin) Chronic diastolic CHF (congestive heart failure) (HCC) Chronic diastolic heart failure PVD (peripheral vascular disease) (HCC) Peripheral vascular disease, unspecified 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 claudication Spinal stenosis, lumbar region, without neurogenic claudication Acquired hypothyroidism Unspecified hypothyroidism Displacement of cervical intervertebral disc without myelopathy Tremor Abnormal involuntary movements Iron deficiency anemia, unspecified iron deficiency anemia type Atherosclerosis of [place] coronary artery of [place] heart without angina pectoris Current moderate episode of major depressive disorder without prior episode (HCC) Moderate persistent asthma without complication Unspecified asthma Gastro-esophageal reflux disease without esophagitis Esophageal reflux Pure hypercholesterolemia Cardiac pacemaker in situ History of endometrial cancer Personal history of malignant neoplasm of other parts of uterus Severe mitral valve regurgitation Severe tricuspid regurgitation Diseases of tricuspid valve documented in this encounter Advance Directives Documents on File Type Date Recorded Patient Insect Control Aide Expl anation Advance Directives and Living Will 11/29/2022 ADVANCE DIRECTIVE / LIVING WILL Power of Collar Sewer 11/29/2022 POWER OF A TTORNEY Advance Directives and Living Will 10/24/2014 ADVANCE DIRECTIVE / LIVING WILL Power of Collar Sewer 10/24/2014 POWER OF A TTORNEY Latest Code [...] Agen t (per Health Care Power of Collar Sewer document) Care Teams Associate Professor Of Biostatistics Relationship Specialty Start Date End Date Florentin Calvo, [address] [place] [address] PCP - General Internal Medicine 03/24/13 documented as of this encounter
--- OUTSIDE RECORDS SUMMARY | 2023-08-14 23:45 | External Medical Summary | Summary of Care ---
Author Name Unknown Organization [facility] Address [address] [place] [address] Phone [phone] Care Team Providers Care Lab Rep Name Role Phone Florentin Calvo DO Primary Care Provider [phone] Reason for Visit * Reason Comments Follow Up Ear issues Encounter Details Date Type Department Care Team Description 02/20/2023 Office Visit Otolaryngology [facility] [address] [facility] [place] [address] Cheri Castillo PA-C [address] [facility] [place] [address] Chronic Eustachian tube dysfunction, right* Allergies Active Allergy Reactions Severity Noted [...] as of this encounter (statuses as of 02/20/2023) Medications Medication Sig Dispensed Refills Start Date End Date Status ferrous sulfate (FEOSOL) 325 (65 FE) MG Tablet Take 1 Tab by mouth 2 times a day. 180 Tab 1 09/21/2019 Active OneTouch Verio w/Device KitIndications:Type 2 diabetes mellitus with hemoglobin A1c goal of less than 7.0% (HCC) Use up to 1 times a day. E11.9 1 Kit 0 06/19/2021 Active Aspirin 81 MG Oral Tablet Delayed Release Take 1 Tablet by mouth daily. 0 Active Acetaminophen 325 MG Oral Tablet (Tylenol) Take 2 Tablets by mouth every 6 hours as needed. 100 Tablet 0 12/04/2021 Active Sotalol HCl 80 MG Oral Tablet (Betapace)Indication s:Chronic atrial fibrillation (HCC) Take by mouth 0.5 Tablets in the morning AND 0.5 Tablets before bedtime. 0.5 tablet twice daily. 90 Tablet 3 04/03/2022 Active Vitamin D3 50 MCG (2000 UT) Oral CapsuleIndications:V itamin D deficiency Take 2 Capsules by mouth in the morning. 60 Capsule 5 04/04/2022 Active OneTouch Delica Plus [id number] USE TWO TIMES A DAY DIRECTED 200 Each 3 04/30/2022 Active Levalbuterol Tartrate 45 MCG/ACT Inhalation Aerosol (Xopenex HFA)Indications:Asth ma with severity to be determined Inhale by mouth 1 Puff every 4 hours as needed for Wheezing. 15 g 12 06/13/2022 Active Montelukast Sodium 10 MG Oral Tablet (Singulair)Indicatio ns:Moderate persistent asthma without complication Take 1 Tablet (10 mg) by mouth every night at bedtime. 100 Tablet 3 08/05/2022 Active Atorvastatin Calcium 20 MG Oral Tablet (Lipitor)Indications :PVD (peripheral vascular disease) ([facility]),Type 2 diabetes mellitus with stage 3a chronic kidney disease and hypertension ([facility]) Take 1 Tablet by mouth in the morning. 100 Tablet 1 08/20/2022 Active Allopurinol 100 MG Oral Tablet (Zyloprim)Indication s:Gout, arthropathy Take 2 Tablets by mouth at bedtime. 60 Tablet 11 10/03/2022 Active Polyethylene Glycol 3350 17 GM Oral Packet Take 1 Packet by mouth daily as needed for Constipation. 0 Active Fluticasone-Salmeter ol 250-50 MCG/ACT Inhalation Aerosol Powder Breath Activated [...] evening. 60 Tablet 5 01/02/2023 Active Ipratropium Dorr 0.03 % Nasal Solution Administer 2 Sprays into nostril in the morning and 2 Sprays before bedtime. 0 Active ALPRAZolam 0.5 MG Oral Tablet (xaNAX)Indications:P ersistent insomnia,Anxiety Take 1 Tablet by mouth at bedtime as needed for Sleep or Anxiety. Uses half of a tablet as needed for anxiety and sleep 90 Tablet 0 01/17/2023 Active Torsemide 10 MG Oral Tablet (Demadex)Indications :Chronic diastolic heart failure due to valvular disease ([facility]) Take 1 tablet in the morning and 1 tablet 4-6 hours later 100 Tablet 3 01/31/2023 Active Levothyroxine Sodium 125 MCG Oral Tablet (Levoxyl) Take 1 Tablet by mouth daily first thing in the morning. 100 Tablet 1 01/31/2023 Active Folic Acid 1 MG Oral TabletIndications:Ch ronic atrial fibrillation (HCC) Take 1 Tablet by mouth in the morning. 100 Tablet 1 02/03/2023 Active Sertraline HCl 50 MG Oral Tablet (Zoloft)Indications: Current moderate episode of major depressive disorder without prior episode (HCC) Take 3 Tablets by mouth in the morning. 90 Tablet 5 02/13/2023 Active Vitamin B-12 100 MCG Oral Tablet (vitamin B-12) Take 1 Tablet by mouth in the morning. 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 Last Assessment & Plan: Now just using [...] as of this encounter (statuses as of 02/20/2023) Resolved Problems Problem Noted Date Resolved Date [...] as of this encounter (statuses as of 02/20/2023) Immunizations Name Administration Dates Next Due COVID-19 [...] - Pulse - - Temperature 36.2 C (97.1 F) 02/20/2023 9:29 AM ED T Respiratory Rate - - Oxygen Saturation - - Inhaled Oxygen Concentration - - Weight 73.2 kg (161 lb 4.8 oz) 02/20/2023 9:29 A M EDT Height 165.1 cm (5' 5") 02/20/2023 9:29 AM EDT Body Mass Index 26.84 02/20/2023 9:29 AM EDT documented in this encounter Progress Notes * Cheri Castillo PA-C - 02/20/2023 9:35 AM EDT Images from the original note were not included. SUBJECTIVE: Inga Barakat is a 82 year old female. Chief Complaint Patient presents with Follow Up Ear issues Nursing Notes: Cheri Benson, SLIME 02/20/23 0934 Signed Chief Complaint Patient presents with Follow Up Ear issues Inga Barakat is a 82 year old female who presents today for a follow up. Reports she has pain inboth ears-started in right ear. Denies drainage. NO no other concerns voiced. ASSESSMENT/PLAN: Encounter Diagnoses Name Primary? Sensorineural hearing loss, bilateral Yes ETD (Eustachian tube dysfunction), right Plan:Findings and problems reviewed with patient. She has resolving Right eustachian tube dysfunction. Recommend that she continue with Astelin 2 squirts each nostril twice daily and we continue to observe. She will return in 2 months Cheri Castillo PA-C 12/12/2022 9:53 AM HPI: Patient presents for 6 week return appointment for fu of previous resolving right eustachian tube following Right acute otitis media. She continues fluctuating bilateral ear fullness and muffledhearing, worse on right but she has chronic hearing loss on left-wears cross aid Patient Active Problem List Diagnosis Code Type [...] 3b (HCC) N18.32 PVD (peripheral vascular disease) ([facility]) I73.9 Chronic diastolic CHF (congestive heart failure) ([facility]) I50.32 Type 2 diabetes mellitus with stage 3b chronic kidney disease, without long- term current use ofinsulin ([facility]) E11.22, N18.32 Anemia D64.9 Cardiac pacemaker in situ Z95.0 History of endometrial cancer Z85.42 Normocytic anemia D64.9 Severe mitral valve regurgitation I34.0 Primary osteoarthritis of right knee M17.11 Severe tricuspid regurgitation I07.1 History of TIA (transient ischemic attack) Z86.73 Atherosclerosis of [place] coronary artery without angina pectoris I25.10 Current [...] 0.5 tablet twice daily. 90 Tablet 3 Vitamin D3 50 MCG (2000 UT) Oral Capsule Take 2 Capsules by mouth in the morning. 60 Capsule 5 OneTouch Delica Plus [id number] USE TWO TIMES A DAY DIRECTED 200 Each 3 Levalbuterol Tartrate 45 MCG/ACT Inhalation Aerosol [...] in the evening. 60 Tablet 5 Ipratropium Dorr 0.03 % Nasal Solution Administer 2 Sprays [...] the morning and 1 tablet 4-6 hours [id number] Tablet 3 Levothyroxine Sodium 125 MCG Oral [...] mouth in the morning. 30 Tablet 3 Current Facility-Administered Medications Medication Dose [...] [facility] Nickel Swelling Other reaction(s): Unknown REVIEW OF SYSTEMS Negative for constitutional, heart, lung, liver, kidney, digestive, hematologic, neurologic, rheumatologic, or endocrine complaints except as per history of present illness and past medical history. OBJECTIVE: Temp 36.2 C (97.1 F) (Temporal Artery) | Ht 1.651 m (5' 5") | Wt 73.2 kg (161 lb 4.8 oz) | BMI 26.84 kg/m | BSA 1.83 m PHYSICAL EXAM: General: alert, healthy and no distress Ears: Examination of the ears revealed that the auricles were normally formed with no lesions. The external auditory canals were cleaned of any obstructing cerumen. The tympanic membranes were intactand freely mobile to pneumatoscopy without perforation or significant retraction pocket, right TM with mild retraction. ASSESSMENT/PLAN: Encounter Diagnoses Name Primary? Chronic Eustachian tube dysfunction, right Yes Plan:Findings and problems reviewed with patient. She continues to have mild right ETD with type C tympanograms. Discussed option of observation versus right ear tube placement. She will consider options and contact the office if she wishes to schedule tube placement in the office. Cheri Castillo PA-C 02/20/2023 10:19 AM documented in this encounter Nursing Notes * Cheri Benson LPN - 02/20/2023 9:32 AM EDT Chief Complaint Patient presents with Follow Up Ear issues Inga Barakat is a 82 year old female who presents today for a follow up. Reports she has pain inboth ears-started in right ear. Denies drainage. NO no other concerns voiced. ASSESSMENT/PLAN: Encounter Diagnoses Name Primary? Sensorineural hearing loss, bilateral Yes ETD (Eustachian tube dysfunction), right Plan:Findings and problems reviewed with patient. She has resolving Right eustachian tube dysfunction. Recommend that she continue with Astelin 2 squirts each nostril twice daily and we continue to observe. She will return in 2 months Cheri Castillo PA-C 12/12/2022 9:53 AM documented in this encounter Plan of Treatment Upcoming Encounters Date Type Specialty Care Team Description 02/21/2023 Laboratory Laboratory [facility], Lab Scenery [address] [place] [address] 02/21/2023 Nurse Only Hematology Oncology Orla, Nurse Hem Onc Scenery [address] [place] [address] 03/07/2023 Home Visit [facility] Karlene Zepeda RN [address] [place] [address] 03/17/2023 Office Visit Cardiology Stephen Hewitt DO [address] [place] [address] 03/19/2023 Imaging Radiology 04/02/2023 Office Visit Vascular Surgery Aj Sahni MD [address] [place] [address] 04/07/2023 Office Visit Gastroenterology Janine Cunningham CRNP [address] [facility] [place] [address] 04/11/2023 Office Visit Hematology Oncology Nereyda Metz CRNP [address] [place], [place] [id number] 05/09/2023 Office Visit Nephrology Rosario Green MD [address] [facility] [place], [place] [phone] 05/22/2023 Office Visit Ophthalmology Wilbur Benavides DO [address] [facility] [place], [place] [phone] 05/23/2023 Office Visit Family Medicine Florentin Calvo, [address] [place] [address] 10/24/2023 Office Visit Gynecology Oncology Chris Peng PA-C [address] [place] [address] Health Maintenance Due Date Last Done Comments HbA1c 02/24/2023 08/27/2022, 03/25, 10/26/2021, Additional history exists DIABETES-EYE EXAM 04/11/2023 04/11/2022, , 04/11/2022, Additional history exists Albumin/Creatinine Ratio 05/01/2023 022, 10/26/2021, 10/05/2020, Additional history exists CKD PHOS USE SMARTSET 70558 05/01/2023 0902/2022, 04/03/2022, 12/05/2020, Additional history exists GFR 08/07/2023 02/05/2023, 09/2022, 01/21/2023, Additional history exists TSH 09/24/2023 09/24/2022, 10/2022, 02/12/2022, Additional history exists DIABETES-FOOT EXAM 10/01/2023 10/01/2022, 0 10/26/2021, 12/05/2020, Additional history exists CKD HGB USE SMARTSET 89641 02/06/202402/05, 02/05/2023, 01/24/2023, Additional history exists Depression Screening, Annual for Pts 12 and Over 02/19/2024 02/18/2023 DXA Scan 05/07/2025 05/07/2021, 12/24, 04/12/2013, Additional [...] this encounter Medical Devices Implanted Type Area Toy Assembly Supervisor Device Identifier Shelf Expiration Date Model / Serial / Lot Cath Thermodilution 6fr - [id number] Implanted:Qty: 1 on 01/24/2023 by Wilbur Rivera MD at [facility] [place] [employer] TERE [id number] 10/15/2024 [id number] / / [id number] documented as of this encounter Visit Diagnoses Diagnosis Chronic Eustachian tube dysfunction, right- Primary documented in this encounter Advance Directives Documents on File Type Date Recorded Patient Manager Inventory Expl anation Advance Directives and Living Will 11/29/2022 ADVANCE DIRECTIVE / LIVING WILL Power of Shot Examiner 11/29/2022 POWER OF A TTORNEY Advance Directives and Living Will 10/24/2014 ADVANCE DIRECTIVE / LIVING WILL Power of Shot Examiner 10/24/2014 POWER OF A TTORNEY Latest Code [...] Agents on File Name Relationship Healthcare Agent [facility] p Communication Bright Barakat Adult Child Health Care Agen t (per Health Care Power of Shot Examiner document) Care Teams Lab Rep Relationship Specialty Start Date End Date Florentin Calvo, DO [address] [place] [address] PCP - General Internal Medicine 03/24/13 documented as of this encounter
--- OUTSIDE RECORDS SUMMARY | 2023-08-14 23:45 | External Medical Summary | Summary of Care ---
Author Name Unknown Organization [facility] Address [address] [place] [address] Phone [phone] Care Team Prov[address] Care Drive Tester Name Role Phone Florentin Calvo DO Primary Care Provider [phone] Encounter Details Date Type Department Care Team Description 03/03/[address] [facility] [address] [facility] [place] [address] Juvenal Carvalho DO [address] [facility] [address] Allergies Active Allergy Reactions Severity Noted Date [...] evening. 60 Tablet 5 01/02/2023 Active Ipratropium [place] 0.03 % Nasal Solution Administer 2 Sprays into nostril in the morning and 2 Sprays before bedtime. 0 Active Sertraline HCl 50 MG Oral Tablet (Zoloft)Indications :Current moderate episode of major depressive disorder without prior episode ([facility]) Take 3 Tablets by mouth in the morning. 90 Tablet 5 02/13/2023 Active Vitamin B-12 100 MCG Oral Tablet (vitamin B-12) Take 1 Tablet by mouth in the morning. 30 Tablet 3 02/13/2023 Active Folic Acid 1 MG Oral TabletIndications:C hronic atrial fibrillation ([facility]) TAKE ONE TABLET BY MOUTH EVERY MORNING 100 Tablet 1 02/03/2023 02/03/2024 Active Torsemide 10 MG Oral Tablet (Demadex)Indication s:Chronic diastolic heart failure due to valvular disease ([facility]) TAKE ONE TABLET BY MOUTH EVERY MORNING [...] 3 08/05/2022 08/05/2023 Active OneTouch Delica Plus [id number] USE 2 TIMES A DAY DIRECTED 200 [...] Active Problems Problem Noted Date Atherosclerosis of [place] coronary arter y [...] Obstructive sleep apnea of adult 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 If had a new knee injury, she needs evaluated, we also have an UC documented in this encounter Plan of Treatment Upcoming Encounters Date Type Specialty Care Team Description 03/04/2023 Office Visit Orthopedics Juvenal Carvalho, DO [address] [place] [address] 03/06/2023 Hospital Encounter Cardiac Narcotics Detective Wilbur Rivera MD [address] [place] [facility] [address] 03/06/2023 Surgery Cardiac Narcotics Detective Wilbur Rivera MD [address] [place] [facility] [place] [address] TRANSCATHETER MITRAL VALVE REPAIR 03/06/2023 Office Visit Cardiology Michelle Cardiac Recovery [facility] [address] [facility], [place] [phone] 03/10/2023 Home Visit [facility] Karlene Zepeda RN [address] [place] [address] 03/17/2023 Office Visit Cardiology Stephen Hewitt DO [address] [place] [address] 03/19/2023 Imaging Radiology 04/02/2023 Office Visit Vascular Surgery Stephen Wright PA-C [address] [place] [facility] [place] [address] 04/07/2023 Office Visit Gastroenterology Janine Cunningham CRNP [address] [place] [address] 04/11/2023 Office Visit Hematology Oncology Nereyda Metz CRNP [address] [place] [address] 05/09/2023 Office Visit Nephrology Rosario Green MD [address] [place] [address] 05/22/2023 Office Visit Ophthalmology Wilbur Benavides DO [address] [place] [address] 05/23/2023 Office Visit Family Medicine Florentin Calvo DO [address] [place] [address] 10/24/2023 Office Visit Gynecology Oncology Chris Peng PA-C [address] [place], [place] [phone] Scheduled Procedures Name Priority Associated Diagnoses Date/Ti me TRANSCATHETER MITRAL VALVE REPAIR Mitral valve regurgitation 03/06/2023 6:00 AM EDT Health Maintenance Due Date Last Done Comments DIABETES-EYE EXAM 04/11/2023 04/11/2022, , 04/11/2022, Additional history exists Influenza Vaccine (FLU shot) (#1) 2023 05/15/2022, 05/22/2021, 04/19/2020, Additional history exists CKD PHOS USE SMARTSET 07505 05/01/2023 090 02/2022, 04/03/2022, 12/05/2020, Additional history exists GFR 08/23/2023 02/21/2023, 01/23, 01/24/2023, Additional history exists HbA1c 08/23/2023 02/21/2023, 010 10/2022, 04/03/2022, Additional history exists TSH 09/24/2023 09/24/2022, 010 10/2022, 02/12/2022, Additional history exists DIABETES-FOOT EXAM 10/01/2023 10/01/2022, 0 10/26/2021, 12/05/2020, Additional history exists Depression Screening, Annual for Pts 12 and Over 02/19/2024 02/18/2023 Albumin/Creatinine Ratio 02/22/202402/21/2 023, 05/01/2022, 10/26/2021, Additional history exists CKD HGB USE SMARTSET 43870 02/22/202402/21, 02/21/2023, 02/05/2023, Additional history exists DXA [...] this encounter Medical Devices Implanted Type Area Special Machine Stitcher Device Identifier Shelf Expiration Date Model / Serial / Lot Cath Thermodilution 6fr - [id number] Implanted:Qty: 1 on 01/24/2023 by Wilbur Rivera MD at [facility] [place] [employer] TERE [id number] 10/15/2024 [id number] / / [id number] documented as of this encounter Advance Directives Documents on File Type Date Recorded 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
--- OUTSIDE RECORDS SUMMARY | 2023-08-14 23:45 | External Medical Summary ---
Author Name Unknown Address Unknown Organization [id number]:[facility] [place] [address] Laboratory Report Ordering Provider Test Date Status PARVIZ ORR 02/21/2023 12:31:40 Final Observation Date Value Abnormality Reference (Units ) Status WBC, Total 02/21/2023 12:31:40 8.61 4.00-10.8 0 (K/uL) Final RBC 02/21/2023 12:31:40 3.16 3.85-5.15 (M/uL) Final Hemoglobin 02/21/2023 12:31:40 9.6 Below low normal 12 .0-15.3 (g/dL) Final HCT 02/21/2023 12:31:40 30.4 Below low normal 36. 0-45.2 (%) Final MCV 02/21/2023 12:31:40 96.2 81.5-97.5 (fL) Final MCH 02/21/2023 12:31:40 30.4 27.0-34.0 (pg) Final MCHC 02/21/2023 12:31:40 31.6 32.0-36.0 (g/dL) Final RDW 02/21/2023 12:31:40 16.6 11.5-15.5 (%) Final Platelets 02/21/2023 12:31:40 163 140-400 (K /uL) Final MPV 02/21/2023 12:31:40 10.7 6.6-11.1 ( fL) Final Performing Location [facility] [place] [address]
--- OUTSIDE RECORDS SUMMARY | 2023-08-14 23:45 | External Medical Summary ---
Author Name Unknown Address Unknown Organization K01[facility] [place] [address] [place] [address] Laboratory Report Ordering Provider Test Date Status ANTONIO EDMONDS 02/21/2023 12:33:44 Final Normal: <30 mg/g creatinine< br/>High: 30-300 mg/g creatinine
Very High: >300 mg/g creatinine
Nephrotic: >2200 mg/g creatinine Observation Date Value Abnormality Reference (Units ) Status Albumin, Urine 02/21/2023 12:33:44 2.21 (mg/dL) Final Creatinine, Urine 02/21/2023 12:33:44 90 (mg/dL) Final Albumin/Creatinine [Mass Ratio] in Urine 02/21/2023 12:33:44 25 <30 (mg/g Creat) Final Performing Location [facility] [place] [address] [place] [address]
--- OUTSIDE RECORDS SUMMARY | 2023-08-14 23:45 | External Medical Summary | Summary of Care ---
Author Name Unknown Organization [facility] Address [address] [place] [address] Phone [phone] Care Team Providers Care Director Of Global Talent Name Role Phone MaxinezaireFlorentin DO Primary Care Provider [phone] Encounter Details Date Type Department Care Team Description 02/27/2023 Orders Only [facility], Cardiac Recovery Suite, [facility] [address] [place] [address] Lenora Franks, RN Aortic stenosis* Allergies Active Allergy Reactions Severity Noted Date [...] as of this encounter (statuses as of 02/27/2023) Medications Medication Sig Dispensed Refills Start Date [...] Capsule 5 04/04/2022 Active OneTouch Delica Plus [id number] USE TWO TIMES A DAY DIRECTED 200 [...] Oral Tablet (Lipitor)Indications :PVD (peripheral vascular disease) ([facility]),Type 2 diabetes mellitus with stage 3a chronic kidney disease and hypertension ([facility]) Take 1 Tablet by mouth in [...] evening. 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 Last Assessment & Plan: Now just [...] as of this encounter (statuses as of 02/27/2023) Resolved Problems Problem Noted Date Resolved Date [...] 08/20/2017 08/20/2017 HTN, goal below 140/90 02/05/2016 08/25/202 2 Overview: Per HTN Protocol Atrial flutter 08/31/2014 02/24/2019 Kidney disease, chronic, stage III (GFR 30-59 ml /min) 10/18/2013 01/15/2018 Overview: Per CKD protocol #1 HTN, goal below 140/80 03/24/2013 6 Overview: Per HTN Protocol Asthma, moderate persistent 03/24/201308/26 Depression 03/24/2013 05/31/2020 documented as of this encounter (statuses as of 02/27/2023) Immunizations Name Administration Dates Next Due COVID-19 [...] Care Team Description 03/06/2023 Hospital Encounter Cardiac Turret Lathe Set Up Operator Wilbur Rivera MD [address] [place] [address] 03/06/2023 Surgery Cardiac Turret Lathe Set Up Operator Wilbur Rivera MD [address] [place] [address] TRANSCATHETER MITRAL VALVE REPAIR 03/06/2023 Office Visit Cardiology Michelle, Cardiac Recovery [facility] [address] [place] [address] 03/10/2023 Home Visit [facility] Karlene Zepeda RN [address] [place] [address] 03/17/2023 Office Visit Cardiology Stephen Hewitt DO [address] [place] [address] 03/19/2023 Imaging Radiology 04/02/2023 Office Visit Vascular Surgery Stephen Wright PA-C [address], [place] [id number] 04/07/2023 Office Visit Gastroenterology Janine Cunningham CRNP [address] [place] [address] 04/11/2023 Office Visit Hematology Oncology Nereyda Metz CRNP [address] [place], [place] [id number] 05/09/2023 Office Visit Nephrology Rosario Green MD [address] [place] [address] 05/22/2023 Office Visit Ophthalmology Wilbur Benavides DO [address] [place] [address] 05/23/2023 Office Visit Family Medicine Florentin Calvo, [address] [place] [address] 10/24/2023 Office Visit Gynecology Oncology Chris Peng PA-C [address] [place] [address] Scheduled Orders Name Type Priority Associated Diagnoses Orde r Schedule BASIC METABOLIC PANEL Lab Routine Aortic stenosis Expected: 03/05/2023, Expires: 03/30/2023 CBC Lab Routine Aortic stenosis Expected: 03/05/2023, Expires: 03/30/2023 PT INR Lab Routine Aortic stenosis Expected: 03/06/2023, Expires: 03/30/2023 HEPATIC FUNCTION PANEL Lab Routine Aortic stenosis Expected: 02/28/2023, Expires: 03/30/2023 TYPE AND SCREEN Lab Routine Aortic stenosis Expected: 03/06/2023, Expires: 03/30/2023 ABO/RH Lab Routine Aortic stenosis Expected: 03/05/2023, Expires: 03/29/2023 BNP, NT-PRO Lab Routine Aortic stenosis Expected: 03/05/2023, Expires: 02/28/2024 Scheduled Procedures Name Priority Associated Diagnoses Date/Ti me TRANSCATHETER MITRAL VALVE REPAIR Mitral valve regurgitation 03/06/2023 6:00 AM EDT Health Maintenance Due Date Last Done Comments DIABETES-EYE EXAM 04/11/2023 04/11/2022, , 04/11/2022, Additional history exists Influenza Vaccine (FLU shot) (#1) 2023 05/15/2022, 05/22/2021, 04/19/2020, Additional history exists CKD PHOS USE SMARTSET 00638 05/01/2023 09/0 02/2022, 04/03/2022, 12/05/2020, Additional history [...] Additional history exists CKD HGB USE SMARTSET 20052 02/22/202402/21, 02/21/2023, 02/05/2023, Additional history exists DXA [...] this encounter Medical Devices Implanted Type Area Supervisor Wound Device Identifier Shelf Expiration Date Model / Serial / Lot Cath Thermodilution 6fr - [id number] Implanted:Qty: 1 on 01/24/2023 by Wilbur Rivera MD at [facility] [employer] [id number] 10/15/2024 [id number] / / [id number] documented as of this encounter Visit Diagnoses Diagnosis Aortic stenosis- Primary Aortic valve disorders Mitral valve regurgitation Mitral valve disorders documented in this encounter Advance Directives Documents on File Type Date Recorded Patient Physiatrist Expl anation Advance Directives and Living Will 11/29/2022 ADVANCE DIRECTIVE / LIVING WILL Power of Refrigerating Technician 11/29/2022 POWER OF A TTORNEY Advance Directives and Living Will 10/24/2014 ADVANCE DIRECTIVE / LIVING WILL Power of Refrigerating Technician 10/24/2014 POWER OF A TTORNEY Latest [...] Agents on File Name Relationship Healthcare Agent Relationsok p Communication Bright Yuval Adult Child Health Care Agen t (per Health Care Power of Refrigerating Technician document) Care Teams Director Of Global Talent Relationship Specialty Start Date End Date Florentin Calvo, [address] [facility] [place] [address] PCP - General Internal Medicine 03/24/13 documented as of this encounter
--- OUTSIDE RECORDS SUMMARY | 2023-08-14 23:45 | External Medical Summary ---
Author Name Unknown Address Unknown Organization K09:[facility] [place] [address] Laboratory Report Ordering Provider Test Date Status PARVIZ ORR 02/21/2023 12:31:40 Final Observation Date Value Abnormality Reference (Units ) Status SYNC LEUKOCYTES IN BLOOD BY AUTOMATED COUNT 02/21/2023 12:31:40 8.61 4.00-10.80 (K/uL) Final Segs 02/21/2023 12:31:40 72.4 40.0-75.0 (%) Final Lymphs % 02/21/2023 12:31:40 12.1 Below low normal 18.0-42.0 (%) Final Monos 02/21/2023 12:31:40 10.9 1.0-11.0 (%) Final Eosinophils 02/21/2023 12:31:40 4.4 0.0-6.0 (%) Final Basos 02/21/2023 12:31:40 0.2 0.0-2.0 (%) Final Absolute Segs 02/21/2023 12:31:40 6.23 1.80-7.70 (K/uL) Final Lymphs, absolute 02/21/2023 12:31:40 1.04 1.00-4.80 (K/ul) Final Monos, Abs 02/21/2023 12:31:40 0.94 0.00-1.10 (K/uL) Final Eos, Abs 02/21/2023 12:31:40 0.38 0.00-0.70 (K/uL) Final Basos, Abs 02/21/2023 12:31:40 0.02 0.00-0.20 (K/uL) Final Performing Location [facility] [place] [address]
--- OUTSIDE RECORDS SUMMARY | 2023-08-14 23:45 | External Medical Summary | Summary of Care ---
Author Name Unknown Organization [facility] Address [address] [place] [address] Phone [phone] Care Team Providers Care Racing Manager Name Role Phone Florentin Calvo DO Primary Care Provider [phone] Reason for Visit * Reason Comments Outpatient Testing Encounter Details Date Type Department Care Team Description 02/21/2023 Laboratory [facility] [place] [address] [place] [address] [place], Lab Scenery [address] [place] [address] Iron deficiency anemia, unspecified iron deficiency anemia type; Type 2 diabetes mellitus with stage 3b chronic kidney disease, without long-term current use of insulin (HCC); Pure hypercholesterolemia Allergies Active Allergy Reactions Severity Noted Date [...] as of this encounter (statuses as of 02/21/2023) Medications Medication Sig Dispensed Refills Start Date [...] 3 04/03/2022 Active Vitamin D3 50 MCG (1999 UT) Oral CapsuleIndications:V itamin D deficiency Take 2 Capsules by mouth in the morning. 60 Capsule 5 04/04/2022 Active OneTouch Delica Plus [id number] USE TWO TIMES A DAY DIRECTED 200 [...] Oral Tablet (Lipitor)Indications :PVD (peripheral vascular disease) ([facility]),Type 2 diabetes mellitus with stage 3a chronic kidney disease and hypertension ([facility]) Take 1 Tablet by mouth [...] evening. 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 Assessment & Plan: Now just [...] as of this encounter (statuses as of 02/21/2023) Resolved Problems Problem Noted Date Resolved Date [...] as of this encounter (statuses as of 02/21/2023) Immunizations Name Administration Dates Next Due COVID-19 mRNA, LNP-s, No Pre serve, 2-Dose Series (Moderna) 06/23/2021,10/25/2020,09/28/2020 COVID-19, LNP-s, No Preserve , Larry-sucrose, Ages 12+ (Pfizer) 04/09/2022 Covid-19, Mrna, Lnp-s, Pf, B ivalent, 30 Mcg, IM, 12 yrs and above (Tickade) 09/10/2022 HEP A - Hepatitis A (Adult [...] Date Type Specialty Care Team Description 02/21/2023 Nurse Only Hematology Oncology [place], Nurse Hem Onc [address] [address] Ar[address] 03/07/2023 Home Visit [facility] Karlene Zepeda RN [address] [place] [address] 03/17/2023 Office Visit Cardiology Stephen Hewitt DO [address] [place] [address] 03/19/2023 Imaging Radiology 04/02/2023 Office Visit Vascular Surgery Aj Sahni MD [address] [place] [address] 04/07/2023 Office Visit Gastroenterology Janine Cunningham CRNP [address] [facility] [address] 04/11/2023 Office Visit Hematology Oncology Nereyda Metz CRNP [address] [place], [place] [address] 05/09/2023 Office Visit Nephrology Rosario Green MD [address] [place], [place] [address] 05/22/2023 Office Visit Ophthalmology Wilbur Benavides DO [address] [facility] [place], [place] [address] 05/23/2023 Office Visit Family Medicine Florentin Calvo, [address] [place] [address] 10/24/2023 Office Visit Gynecology Oncology Chris Peng PA-C [address] [place] [address] Pending Results Name Type Priority Associated Diagnoses Date /Time HEMOGLOBIN A1C Lab Routine Type 2 diabetes mellitus with stage 3b chronic kidney disease, without long-term current use of insulin ([facility]) 02/21/2023 12:31 PM EDT LIPID PANEL WITH DIRECT LDL IF TG IS HIGH Lab Routine Pure hypercholesterolemia 02/21/2023 12:31 PM EDT COMPREHENSIVE METABOLIC PANEL Lab Routine Type 2 diabetes mellitus with stage 3b chronic kidney disease, without long-term current use of insulin ([facility]) 02/21/2023 12:31 PM EDT ALBUMIN / CREATININE RATIO, URINE Lab Routine Type 2 diabetes mellitus with stage 3b chronic kidney disease, without long-term current use of insulin ([facility]) 02/21/2023 12:33 PM EDT Health Maintenance Due Date Last Done Comments HbA1c 02/24/2023 08/27/2022, 03/25, 10/26/2021, Additional history exists DIABETES-EYE EXAM 04/11/2023 04/11/2022, , 04/11/2022, Additional history exists Albumin/Creatinine Ratio 05/01/2023 022, 10/26/2021, 10/05/2020, Additional history exists CKD PHOS USE SMARTSET 62217 05/01/2023 09/0 02/2022, 04/03/2022, 12/05/2020, Additional history exists GFR 08/07/2023 02/05/2023, 09/2022, 01/21/2023, Additional history exists TSH 09/24/2023 09/24/2022, 0 10/2022, 02/12/2022, Additional history exists DIABETES-FOOT EXAM 10/01/2023 10/01/2022, 0 10/26/2021, 12/05/2020, Additional history exists Depression Screening, Annual for Pts 12 and Over 02/19/2024 02/18/2023 CKD HGB USE SMARTSET 42464 02/22/202402/21, 02/21/2023, 02/05/2023, Additional history exists DXA [...] this encounter Medical Devices Implanted Type Area Customer Service Advisor Device Identifier Shelf Expiration Date Model / Serial / Lot Cath Thermodilution 6fr - [id number] Implanted:Qty: 1 on 01/24/2023 by Wilbur Rivera MD at [facility] [email or web address] TERE [id number] 10/15/2024 [id number] / / [id number] documented as of this encounter Procedures Procedure Name Priority Date/Time Associated Diagnosis Comments DIFFERENTIAL, AUTOMATED STAT 02/21/2023 12:31 PM EDT Iron deficiency anemia, unspecified iron deficiency anemia type CBC WITH WBC DIFFERENTIAL STAT 02/21/2023 12:31 PM EDT Iron deficiency anemia, unspecified iron deficiency anemia type CBC STAT 02/21/2023 12:31 PM EDT Iron deficiency anemia, unspecified iron deficiency anemia type documented in this encounter Results * (ABNORMAL) DIFFERENTIAL, AUTOMATED (02/21/2023 12:31 PM EDT) WBC 8.61 4.00 - 10.80 K/uL 02/21/2023 12:37 PM EDT [facility] 56-02 Neutrophils % 72.4 40.0 - 75.0 % 02/21/2023 12:37 PM EDT [facility] 56-02 Lymphocytes % 12.1(L) 18.0 - 42.0 % 02/21/2023 12:37 PM EDT [facility] 56-02 Monocytes % 10.9 1.0 - 11.0 % 02/21/2023 12:37 PM EDT [facility] 56-02 Eosinophils % 4.4 0.0 - 6.0 % 02/21/2023 12:37 PM EDT [facility] 56-02 Basophils % 0.2 0.0 - 2.0 % 02/21/2023 12:37 PM EDT [facility] 56 Absolute Neutrophils 6.23 1.80 - 7.70 K/uL 02/21/2023 12:37 PM EDT [facility] 56 Absolute Lymphocytes 1.04 1.00 - 4.80 K/ul 02/21/2023 12:37 PM EDT [facility] 56 Absolute Monocytes 0.94 0.00 - 1.10 K/uL 02/21/2023 12:37 PM EDT [facility] 56 Absolute Eosinophils 0.38 0.00 - 0.70 K/uL 02/21/2023 12:37 PM EDT [facility] 56 Absolute Basophils 0.02 0.00 - 0.20 K/uL 02/21/2023 12:37 PM EDT [facility] 56 Blood Venous blood specimen / Unknown Venipuncture / Unknown 02/21/2023 12:31 PM EDT 02/21/2023 12:31 PM EDT Nereyda MERCADO LAB BLOOD ORDER CURLY [facility] [address] [place] [address] * (ABNORMAL) CBC (02/21/2023 12:31 PM EDT) WBC 8.61 4.00 - 10.80 K/uL 02/21/2023 12:37 PM EDT [facility] 56 RBC 3.16 3.85 - 5.15 M/uL 02/21/2023 12:37 PM EDT [facility] 56 HGB 9.6(L) 12.0 - 15.3 g/dL 02/21/2023 12:37 PM EDT [facility] 56 HCT 30.4(L) 36.0 - 45.2 % 02/21/2023 12:37 PM EDT [facility] 56 MCV 96.2 81.5 - 97.5 fL 02/21/2023 12:37 PM EDT [facility] 56 MCH 30.4 27.0 - 34.0 pg 02/21/2023 12:37 PM EDT [facility] 56 MCHC 31.6 32.0 - 36.0 g/dL 02/21/2023 12:37 PM EDT [address] RDW 16.6 11.5 - 15.5 % 02/21/2023 12:37 PM EDT [address] PLT 163 140 - 400 K/uL 02/21/2023 12:37 PM EDT [address] MPV 10.7 6.6 - 11.1 fL 02/21/2023 12:37 PM EDT [address] Blood Venous blood specimen / Unknown Venipuncture / Unknown 02/21/2023 12:31 PM EDT 02/21/2023 12:31 PM EDT Nereyda MERCADO LAB BLOOD ORDER CURLY [address] [place] [address] documented in this encounter Visit Diagnoses Diagnosis Iron deficiency anemia, unspecified iron deficiency anemia type Type 2 diabetes mellitus with stage 3b chronic kidney disease, without long-term current use of insulin (HCC) Pure hypercholesterolemia documented in this encounter Advance Directives Documents on File Type Date Recorded Patient [employer] [facility] Expl anation Advance Directives and Living Will 11/29/2022 ADVANCE DIRECTIVE / LIVING WILL Power of Directional Bore Operator 11/29/2022 POWER OF A TTORNEY Advance Directives and Living Will 10/24/2014 ADVANCE DIRECTIVE / LIVING WILL Power of Directional Bore Operator 10/24/2014 POWER OF A TTORNEY Latest [...] Frieda t (per Health Care Power of Directional Bore Operator document) Care Teams Racing Manager Relationship Specialty Start Date End Date Florentin Calvo, [address] [place] [address] PCP - General Internal Medicine 03/24/13 documented as of this encounter
--- OUTSIDE RECORDS SUMMARY | 2023-08-14 23:45 | External Medical Summary | Summary of Care ---
Author Name Unknown Organization [facility] Address [address] [place] [address] Phone [phone] Care Team Providers Care General Foreman Name Role Phone Florentin Calvo DO Primary Care Provider [phone] Reason for Visit * Reason Comments Nurse Documentation Encounter Details Date Type Department Care Team Description 02/21/2023 Nurse Only Hematology/Oncology [facility] [address] [place] [address] Sera, Nurse Hem Onc [facility] [address] [place] [address] Nurse Documentation Allergies Active Allergy Reactions Severity Noted Date [...] Capsule 5 04/04/2022 Active OneTouch Delica Plus [id number] USE TWO TIMES A DAY DIRECTED 200 [...] Oral Tablet (Lipitor)Indications :PVD (peripheral vascular disease) ([facility]),Type 2 diabetes mellitus with stage 3a chronic kidney disease and hypertension ([facility]) Take 1 Tablet by mouth in the [...] 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 Patient states that she feels tired. Still planning for valve surgery, patient did not say when. Vascular lab scheduled on 03/19/23 at [facility] upon chart review. Patient continuting with oral iron twice a day. "Would like to repeat another CBCD every 2 weekly for the next 3 times. " Per Dr. Hood. This visitis 10/25. Next appointment 04/11/23. documented in this encounter Plan of Treatment Upcoming Encounters Date Type Specialty Care Team Description 03/07/2023 Home Visit [facility] Karlene Zepeda, RN [address] [place] [address] 03/17/2023 Office Visit Cardiology Stephen Hewitt, DO [address] [facility] [place] [address] 03/19/2023 Imaging Radiology 04/02/2023 Office Visit Vascular Surgery Aj Sahni MD [address] [place] [address] 04/07/2023 Office Visit Gastroenterology Janine Cunningham CRNP [address] [facility] [place] [address] 04/11/2023 Office Visit Hematology Oncology Nereyda Metz CRNP [address] [place] [address] 05/09/2023 Office Visit Nephrology Rosario Green MD [address] [place] [address] 05/22/2023 Office Visit Ophthalmology Wilbur Benavides DO [address] [place] [address] 05/23/2023 Office Visit Family Medicine Florentin Calvo, [address] [place] [address] 10/24/2023 Office Visit Gynecology Oncology Chris Peng PA-C [address] [place] [address] Health Maintenance Due Date Last Done Comments HbA1c 02/24/2023 08/27/2022, 03/25, 10/26/2021, Additional history exists DIABETES-EYE EXAM 04/11/2023 04/11/2022, , 04/11/2022, Additional history exists Albumin/Creatinine Ratio 05/01/2023 022, 10/26/2021, 10/05/2020, Additional history exists CKD PHOS USE SMARTSET 60218 05/01/2023 09/0 02/2022, 04/03/2022, 12/05/2020, Additional history exists GFR 08/23/2023 02/21/2023, 01/23, 01/24/2023, Additional history exists TSH 09/24/2023 09/24/2022, 10/2022, 02/12/2022, Additional history exists DIABETES-FOOT EXAM 10/01/2023 10/01/2022, 0 10/26/2021, 12/05/2020, Additional history exists Depression Screening, Annual for Pts 12 and Over 02/19/2024 02/18/2023 CKD HGB USE SMARTSET 69380 02/22/202402/21, 02/21/2023, 02/05/2023, Additional history exists DXA [...] this encounter Medical Devices Implanted Type Area Doctor Of Nurse Anesthesia Device Identifier Shelf Expiration Date Model / Serial / Lot Cath Thermodilution 6fr - [id number] Implanted:Qty: 1 on 01/24/2023 by Wilbur Rivera MD at [facility] [employer] T[employer] [id number] 10/15/2024 [id number] / / [id number] documented as of this encounter Advance Directives Documents on File Type Date Recorded Patient Sex Offender Treatment Professional Expl anation Advance Directives and Living Will 11/29/2022 ADVANCE DIRECTIVE / LIVING WILL Power of Terra Cotta Mold Maker 11/29/2022 POWER OF A TTORNEY Advance Directives and Living Will 10/24/2014 ADVANCE DIRECTIVE / LIVING WILL Power of Terra Cotta Mold Maker 10/24/2014 POWER OF A TTORNEY Latest [...] Relationship Healthcare Agent Relationshi p Communication Bright aBrakat Adult Child Health Care Agen t (per Health Care Power of Terra Cotta Mold Maker document) Care Teams General Foreman Relationship Specialty Start Date End Date Florentin Calvo, [address] [place] [address] PCP - General Internal Medicine 03/24/13 documented as of this encounter
--- OUTSIDE RECORDS SUMMARY | 2023-08-14 23:45 | External Medical Summary | Summary of Care ---
Author Name Unknown Organization [facility] Address [address] [place] [address] Phone [phone] Care Team Providers Care Roll Hand Name Role Phone MaxinezaireFlorentin DO Primary Care Provider Reason for Visit * Reason Onset Date Comments [facility]: Maintenance 02/24/2023 Encounter Details Date Type Department Care Team Description 02/24/2023 Telephone [facility], [address] [address] Evon Dela Cruz, Community Health Fuse Assembler [facility]: Maintenance Allergies Active Allergy Reactions Severity Noted Date Comments Azithromycin Other (Please comment) 12/04/2021 QTC prolongation at [facility] Celecoxib Hives,Rash High 03/24/2013 Other reaction(s): Rash/Hives/Itching. [...] as of this encounter (statuses as of 02/26/2023) Medications Medication Sig Dispensed Refills Start Date [...] Capsule 5 04/04/2022 Active OneTouch Delica Plus [id number] USE TWO TIMES A DAY DIRECTED 200 [...] Oral Tablet (Lipitor)Indications :PVD (peripheral vascular disease) ([facility]),Type 2 diabetes mellitus with stage 3a chronic kidney disease and hypertension ([facility]) Take 1 Tablet by mouth [...] evening. 60 Tablet 5 01/02/2023 Active Ipratropium [place] 0.03 % Nasal Solution Administer 2 Sprays [...] diastolic heart failure due to valvular disease ([facility]) Take 1 tablet in the [...] as of this encounter (statuses as of 02/26/2023) Active Problems Problem Noted Date Atherosclerosis of [place] coronary arter y without angina pectoris 02/13/2023 Last Assessment & Plan: Continue statin, sotalol. 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 Last Assessment & Plan: Now just using [...] as of this encounter (statuses as of 02/26/2023) Resolved Problems Problem Noted Date Resolved Date [...] as of this encounter (statuses as of 02/26/2023) Immunizations Name Administration Dates Next Due COVID-19 [...] encounter Miscellaneous Notes * Telephone Encounter - Karlene Zepeda RN - 02/26/2023 9:01 AM EDT Return call to pt Scheduled for valve repair on April 06 Was told will be in hospital for 1-3 days at [facility] Informed will be seen at home after her surgery Wt this morning was 162.5lbs Wt Readings from Last 7 Encounters: 02/20/23 73.2 kg (161 lb 4.8 oz) 02/18/23 73.6 kg (162 lb 4.8 oz) 02/13/23 72.1 kg (159 lb) 02/03/23 72.6 kg (160 lb) 01/31/23 72.6 kg (160 lb 1.6 oz) 01/27/23 73.1 kg (161 lb 1.6 oz) 01/17/23 72.8 kg (160 lb 9.6 oz) Agreed to call with wt of 163lbs Requested names agencies that can assist with staying with while she is out of home Provided with names for [facility] [employer] and [employer] * Telephone Encounter - Evon Dela Cruz [facility] Fuse Assembler - 02/24/2023 3:59 PM EDT Patient called in and ask to cancel her appointment with Karlene Zepeda RNCM due to her having suregery on 03/06/23 her appointment was scheduled for 03/07/2023 She would like Karlene to call her Evon Dela Cruz RADHA documented in this encounter Plan of Treatment Upcoming Encounters Date Type Specialty Care Team Description 03/06/2023 Hospital Encounter Cardiac Dental Hygienist Wilbur Rivera MD [address] [place] [address] 03/06/2023 Surgery Cardiac Dental Hygienist Wilbur Rivera MD [address] [place] [address] TRANSCATHETER MITRAL VALVE REPAIR 03/06/2023 Office Visit Cardiology Michelle, Cardiac Recovery [facility] [address] [place] [address] 03/17/2023 Office Visit Cardiology Stephen Hewitt DO [address] [place] [address] 03/19/2023 Imaging Radiology 04/02/2023 Office Visit Vascular Surgery Stephen Wright PA-C [address] [place] [address] 04/07/2023 Office Visit Gastroenterology Janine Cunningham CRNP [address] [place] [address] 04/11/2023 Office Visit Hematology Oncology Nereyda Metz CRNP [address] [place] [address] 05/09/2023 Office Visit Nephrology Rosario Green MD [address] [place] [address] 05/22/2023 Office Visit Ophthalmology Wilbur Benavides, DO [address] [place] [address] 05/23/2023 Office Visit Family Medicine Florentin Calvo, [address] [place] [address] 10/24/2023 Office Visit Gynecology Oncology Chris Peng PA-C [address], [place] [id number] Scheduled Procedures Name Priority Associated Diagnoses Date/Ti me TRANSCATHETER MITRAL VALVE REPAIR Mitral valve regurgitation 03/06/2023 6:00 AM EDT Health Maintenance Due Date Last Done Comments DIABETES-EYE EXAM 04/11/2023 04/11/2022, , 04/11/2022, Additional history exists Influenza Vaccine (FLU shot) (#1) 2023 05/15/2022, 05/22/2021, 04/19/2020, Additional history exists CKD PHOS USE SMARTSET 35319 05/01/2023 090 02/2022, 04/03/2022, 12/05/2020, Additional history exists GFR 08/23/2023 02/21/2023, 01/23, 01/24/2023, Additional history exists HbA1c 08/23/2023 02/21/2023, 0 10/2022, 04/03/2022, Additional history exists TSH 09/24/2023 09/24/2022, 0 10/2022, 02/12/2022, Additional history exists DIABETES-FOOT EXAM 10/01/2023 10/01/2022, 0 10/26/2021, 12/05/2020, Additional history exists Depression Screening, Annual for Pts 12 and Over 02/19/2024 02/18/2023 Albumin/Creatinine Ratio 02/22/2024 023, 05/01/2022, 10/26/2021, Additional history exists CKD HGB USE SMARTSET 62278 02/22/202402/21, 02/21/2023, 02/05/2023, Additional history exists DXA [...] this encounter Medical Devices Implanted Type Area Toolroom Checker Device Identifier Shelf Expiration Date Model / Serial / Lot Cath Thermodilution 6fr - [id number] Implanted:Qty: 1 on 01/24/2023 by Wilbur Rivera MD at [facility] [employer] [id number] 10/15/2024 [id number] / / [id number] documented as of this encounter Advance Directives Documents on File Type Date Recorded Patient Service Bar Cashier Expl anation Advance Directives and Living Will 11/29/2022 ADVANCE DIRECTIVE / LIVING WILL Power of Extrusion Technician 11/29/2022 POWER OF A TTORNEY Advance Directives and Living Will 10/24/2014 ADVANCE DIRECTIVE / LIVING WILL Power of Extrusion Technician 10/24/2014 POWER OF A TTORNEY Latest [...] Agents on File Name Relationship Healthcare Agent [facility] p Communication Bright Barakat Adult Child Health Care Frieda t (per Health Care Power of Extrusion Technician document) Care Teams Roll Hand Relationship Specialty Start Date End Date Floerntin Calvo, DO [address] [place] [address] PCP - General Internal Medicine 03/24/13 documented as of this encounter
--- OUTSIDE RECORDS SUMMARY | 2023-08-14 23:45 | External Medical Summary ---
Author Name Unknown Address Unknown Organization [id number]:LABORATORY [facility] - [address] [facility] [address] Laboratory Report Ordering Provider Test Date Status ANTONIO EDMONDS 02/21/2023 12:31:40 Final Observation Date Value Abnormality Reference (Units ) Status HbA1C 02/21/2023 12:31:40 6.5 Above high normal 4. 0-5.6 (%) Final The use of HbA1c to monitor glycemic status is based on normal hemoglobin and HbA composition. This test should not be used in patients with abnormal hemoglobin that affects the half life of the red blood cell or the in vivo glycation rates. Glucose, estimated average 02/21/2023 12:31:40 140 Above high normal <126 (mg/dL) Tarik polo Performing Location LABORATORY [facility] - [address] [facility] [address]
--- OUTSIDE RECORDS SUMMARY | 2023-08-14 23:45 | External Medical Summary ---
Author Name Unknown Address Unknown Organization K01:LABORATORY C - [address] [facility] [address] Laboratory Report Ordering Provider Test Date Status ANTONIO EDMONDS 02/21/2023 12:31:40 Final Observation Date Value Abnormality Reference (Units ) Status Triglyceride 02/21/2023 12:31:40 89 <=174 ( mg/dL) Final Triglyceride Reference Range s (mg/dL):
<150 Acceptable
150-174 Borderline high
175-499 High
>=500 Very high Cholesterol 02/21/2023 12:31:40 99 <200 (mg /dL) Final Total Cholesterol Reference Ranges (mg/dL):
<200 Desirable
200-239 Borderline high
>=240 High HDL 02/21/2023 12:31:40 49 Below low normal >49 (mg/dL) Final HDL Cholesterol Reference Ra nges (mg/dL):
>=60 High (Desirable)
<50 Low (Undesirable) For Females
<40 Low (Undesirable) For Males NON-HDL CHOLESTEROL 02/21/2023 12:31:40 50 <=159 (mg/dL) Final Non-HDL Cholesterol Referenc e Range (mg/dL):
<100 Target level for high risk ASCVD patient
<130 Optimal for general population
130-159 Near optimal for general population
160-189 Borderline High
190-219 High
>=220 Very High LDL, (calculated) 02/21/2023 12:31:40 32 <= 129 (mg/dL) Final LDL Cholesterol Reference Ra nges (mg/dL):
<70 Target level for high risk ASCVD patient
<100 Optimal for general population
100-129 Near optimal for general population
130-159 Borderline high
160-189 High
>=190 Very high Performing Location LABORATORY [facility] - [address] [facility] [address]
--- OUTSIDE RECORDS SUMMARY | 2023-08-14 23:45 | External Medical Summary | Summary of Care ---
Author Name Unknown Organization [facility] Address [address] [place] [address] Phone [phone] Care Team Providers Care Table Hand Name Role Phone MaxinezaireFlorentin DO Primary Care Provider [phone] Reason for Visit * Reason Onset Date Comments [facility]: Maintenance 02/24/2023 Encounter Details Date Type Department Care Team Description 02/24/2023 Telephone [facility], [address] [address] Evon Dela Cruz, Community Health Collections Analyst [facility]: Maintenance Allergies Active Allergy [...] as of this encounter (statuses as of 02/24/2023) Medications Medication Sig Dispensed Refills Start Date [...] Capsule 5 04/04/2022 Active OneTouch Delica Plus [id number] USE TWO TIMES A DAY DIRECTED 200 [...] (Lipitor)Indications :PVD (peripheral vascular disease) ([facility]),Type 2 diabetes mellitus with stage 3a chronic kidney disease and hypertension ([facility]) Take 1 Tablet by mouth [...] evening. 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 & Plan: Now just using [...] as of this encounter (statuses as of 02/24/2023) Resolved Problems Problem Noted Date Resolved Date [...] as of this encounter (statuses as of 02/24/2023) Immunizations Name Administration Dates Next Due COVID-19 [...] Notes * Telephone Encounter - Evon Dela Cruz [facility] Health Collections Analyst - 02/24/2023 3:59 PM EDT Patient called in and ask to cancel her appointment with Karlene HERNANDEZ due to her having suregery on 03/06/23 her appointment was scheduled for 03/07/2023 She would like Karlene to call her Evon Dela Cruz, RADHA documented in this encounter Plan of Treatment Upcoming Encounters Date Type Specialty Care Team Description 03/17/2023 Office Visit Cardiology Stephen Hewitt DO [address] [place] [address] 03/19/2023 Imaging Radiology 04/02/2023 Office Visit Vascular Surgery Stephen Wright PA-C [address] [place] [address] 04/07/2023 Office Visit Gastroenterology Janine Cunningham CRNP [address] [place] [address] 04/11/2023 Office Visit Hematology Oncology Nereyda Metz CRNP [address] [place], [place] [id number] 05/09/2023 Office Visit Nephrology Rosario Green MD [address] [place], [place] [id number] 05/22/2023 Office Visit Ophthalmology Wilbur Benavides DO [address] [place], [place] [id number] 05/23/2023 Office Visit Family Medicine Florentin Calvo DO [address] [place] [address] 10/24/2023 Office Visit Gynecology Oncology Chris Peng PA-C [address] [place] [address] Health Maintenance Due Date Last Done Comments DIABETES-EYE EXAM 04/11/2023 04/11/2022, , 04/11/2022, Additional history exists Influenza Vaccine (FLU shot) (#1) 2023 05/15/2022, 05/22/2021, 04/19/2020, Additional history exists CKD PHOS USE SMARTSET 57432 05/01/2023 090 02/2022, 04/03/2022, 12/05/2020, Additional history [...] Additional history exists CKD HGB USE SMARTSET 29468 02/22/202402/21, 02/21/2023, 02/05/2023, Additional history exists DXA [...] this encounter Medical Devices Implanted Type Area Grinding Machine Operator Automatic Device Identifier Shelf Expiration Date Model / Serial / Lot Cath Thermodilution 6fr - [id number] Implanted:Qty: 1 on 01/24/2023 by Wilbur Rivera MD [place] [facility] [employer] [id number] 10/15/2024 [id number] / / [id number] documented as of this encounter Advance Directives Documents on File Type Date Recorded Patient Digital Sales Assistant Expl anation Advance Directives and Living Will 11/29/2022 ADVANCE DIRECTIVE / LIVING WILL Power of Winder Tender 11/29/2022 POWER OF A TTORNEY Advance Directives and Living Will 10/24/2014 ADVANCE DIRECTIVE / LIVING WILL Power of Winder Tender 10/24/2014 POWER OF A TTORNEY Latest [...] Agents on File Name [facility] Bright Barakat Adult Child Health Care Frieda t (per Health Care Power of Winder Tender document) Care Teams Table Hand Relationship Specialty Start Date End Date Florentin Calvo, [address] [place] [address] PCP - General Internal Medicine 03/24/13 documented as of this encounter
--- OUTSIDE RECORDS SUMMARY | 2023-08-14 23:46 | External Medical Summary | Summary of Care ---
Author Name Unknown Organization [facility] Address [address] [place] [address] Phone [phone] Care Team Providers Care Grease Monkey Name Role Phone Grey Calvo DO Primary Care Provider [phone] Reason for Visit * Reason Comments Re-Check Encounter Details Date Type Department Care Team Description 01/31/2023 Office Visit NephrologyJerri [address] [place] [address] Veto Corona MD [address] [place] [address] Worsening renal function*; Stage 3b chronic kidney disease (HCC); 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); Hyperuricemia; Secondary hyperparathyroidism, renal (HCC); HTN, goal below 130/80 Allergies Active Allergy Reactions Severity Noted Date [...] as of this encounter (statuses as of 02/16/2023) Medications Medication Sig Dispensed Refills Start Date [...] as needed. 100 Tablet 0 2 Active Sotalol HCl 80 MG Oral Tablet (Betapace)Indicat ions:Chronic atrial fibrillation (HCC) Take by mouth 0.5 Tablets in the morning AND 0.5 Tablets before bedtime. 0.5 tablet twice daily. 90 Tablet 3 2 Active Vitamin D3 50 MCG (2000 UT) Oral CapsuleIndication s:Vitamin D deficiency Take 2 Capsules by mouth in the morning. 60 Capsule 5 2 Active OneTouch Delica Plus [id number] USE TWO TIMES A DAY DIRECTED 200 Each 3 2 Active Levalbuterol Tartrate 45 MCG/ACT Inhalation Aerosol (Xopenex HFA)Indications:A sthma with severity to be determined Inhale by mouth 1 Puff every 4 hours as needed for Wheezing. 15 g 12 2 Active Montelukast Sodium 10 MG Oral Tablet (Singulair)Indica tions:Moderate persistent asthma without complication Take 1 Tablet (10 mg) by mouth every night at bedtime. 100 Tablet 3 2 Active Atorvastatin Calcium 20 MG Oral Tablet (Lipitor)Indicati ons:PVD (peripheral vascular disease) ([facility]),Type 2 diabetes mellitus with stage 3a chronic kidney disease and hypertension ([facility]) Take 1 Tablet by mouth in the morning. 100 Tablet 1 2 Active Allopurinol 100 MG Oral Tablet (Zyloprim)Indicat ions:Gout, arthropathy Take 2 Tablets by mouth at bedtime. 60 Tablet 11 3 Active Polyethylene Glycol 3350 17 GM Oral Packet Take 1 Packet by mouth daily as needed for Constipation. 0 Active BiPAP every night at bedtime. 0 Active Fluticasone-Salme terol 250-50 MCG/ACT Inhalation [...] evening. 60 Tablet 5 3 Active Ipratropium Weeping Water 0.03 % Nasal Solution Administer 2 Sprays into nostril in the morning and 2 Sprays before bedtime. 0 Active ALPRAZolam 0.5 MG Oral Tablet (xaNAX)Indication s:Persistent insomnia,Anxiety Take 1 Tablet by mouth at bedtime as needed for Sleep or Anxiety. Uses half of a tablet as needed for anxiety and sleep 90 Tablet 0 3 Active Torsemide 10 MG Oral Tablet (Demadex)Indicati ons:Chronic diastolic heart failure due to valvular disease ([facility]) Take 1 tablet in the morning and 1 tablet 4-6 hours later 100 Tablet 3 3 Active Folic Acid 1 MG Oral TabletIndications :Chronic atrial fibrillation (HCC) Take by mouth 1 Tablet in the morning. 100 Tablet 1 2 02/03/20 23 Discontinued(Ref ill) Vitamin B12 500 MCG Oral Tablet Take 500 mcg by mouth in the morning. 0 02/14/20 23 Discontinued([facility] List Clean Up) Levothyroxine Sodium 125 MCG Oral Tablet (Levoxyl) Take 1 Tablet by mouth in the morning. 0 3 02/01/20 23 Discontinued(Ref ill) Sertraline HCl 100 MG Oral Tablet (Zoloft)Indicatio [...] diastolic heart failure due to valvular disease (HCC),Nonrheumati c mitral valve regurgitation,Non rheumatic tricuspid valve regurgitation,Pul monary hypertension (HCC),Paroxysmal atrial fibrillation (HCC),SSS (sick sinus syndrome) (HCC),Cardiac pacemaker in situ Take 1 tablet in the morning and 1 tablet 4-6 hours later 100 Tablet 3 3 02/01/20 23 Discontinued Sertraline HCl 50 MG Oral Tablet (Zoloft) Take 1 Tablet by mouth. Takes in the pm 0 02/14/20 23 Discontinued Empagliflozin 10 MG Oral Tablet (Jardiance) Take 1 Tablet by mouth in the morning. PT NOT TAKING SINCE APPROX November 2022. 30 Tablet 1 3 02/04/20 23 Discontinued Hospital, Clinic, or Other Facility Administered [...] as of this encounter (statuses as of 02/16/2023) Active Problems Problem Noted Date Atherosclerosis of [place] coronary arter y without [...] Obstructive sleep apnea of adult 015 Overview: SCORER SINGLE Last Assessment & Plan: Now just using [...] as of this encounter (statuses as of 02/16/2023) Resolved Problems Problem Noted Date Resolved Date [...] as of this encounter (statuses as of 02/16/2023) Immunizations Name Administration Dates Next Due COVID-19 [...] 18 Q uit: 12/29/1978 Smokeless Tobacco: Never Tobacco Cessation:Counseling Given: Not Answered Alcohol Use Standard Drinks/Week Comments No 0 (1 standard drink = 0.6 oz pur e alcohol) Food Insecurity Answer Date Recorded Within the past 12 months, y ou worried that your food would run out before you got money to buy more. Never true 01/17/2023 Within the past 12 months, t he food you bought just didn't last and you didn't have money to get more. Never true 01/17/2023 Sex Assigned at Date Recorded Female 12/17/2018 11:06 AM EDT Job Start Date Occupation Industry Not on file Not on file Not on file documented as of this encounter Last Filed Vital Signs Vital Sign Reading Time Taken Comments Blood Pressure 115/78 01/31/2023 1:31 PM EDT Pulse 70 01/31/2023 1:31 PM EDT Temperature 36 C (96.8 F) 01/31/2023 1:31 PM EDT Respiratory Rate 22 01/31/2023 1:31 PM EDT Oxygen Saturation - - Inhaled Oxygen Concentration - - Weight 72.6 kg (160 lb 1.6 oz) 01/31/2023 1:31 P M EDT Height - - Body Mass Index 26.64 01/27/2023 12:05 PM EDT documented in this encounter Patient Instructions * Patient Instructions* Veto Corona MD - 01/31/2023 3:00 PM EDT -time torsemide as follows: 10 mg w/ late AM meds, 10 mg 4 hrs or more later >>watch to see if above retimed dosing 1) disrupts sleep more 2) affects daily weights ->from a kidney standpoint you do not need jardiance but other providers may feel you need it >> recommend discussing with cardiology and/or Dr Calvo whether you need this med you've not been taking since October or November -no other medication changes today -avoid medicines like aleve, advil, ibuprofen, aspirin more than 81 mg daily and other NSAIDS whichare not good for kidney patients. Take only tylenol (acetaminophen) up to 2000 mg daily as needed for pain or as directed by your primary care provider. -after about a week on different torsemide, recheck labs -no colonoscopy planned currently >> pls discuss w/ hematology next week whether colo may be indicated, whether you should see GI sooner to discuss documented in this encounter Progress Notes * Veto Corona MD - 01/31/2023 2:14 PM EDT NEPHROLOGY CLINIC NOTE Nephrology, [place] [address] 01/31/2023, 2:14 PM Patient Name: Inga Barakat BACKGROUND: 82 year old female presentsfor f/u ofnonproteinuricCKD 3B attributed to advancingagehere for follow up w/ worsening clinical status last few mos. Medical history includes diet controlled diabetes since about 2006, paroxysmal AFib on no anticoagulation and sotalol, sick sinus syndrome status post July 2022 pacer, chronic heart failure, sleep apnea on CPAP, asthma on inhalers, reformed smoker quit late ,hiatal hernia,hypothyroid, gout, depression, lumbar spinal stenosis, elevated kappa free light chains from renal dz per heme 06/2016. Recommended Q 4-6 months repeat light chain assays. Note no HTN. Anticoagulation held February 2022 due to severe anemia with no clear source, question AVMs. Follows w/ [facility] pulm. Follows with GI after upper and lower scopes >anemia attributed to intermittent Ivan erosions and to anticoagulation. Also had a cystoscopy 2011 for vaginal d/c 2011 w/ non [facility] provider; per pt negative and no urology f/u needed. Hospitzalized [facility] February 2022 for anemiax 1 wk>(creat from 1 > 1.4); her OP creat has run 1.3-1.4. S/p cardiac pacer 07/2022; also diagnosed w/ HFpEF 07/2022 and started on torsemide. Never user of nsaids. No personal hx of stones. No FH of renal dz except brother w/ kidney stones. Had evaluation withimaging for elevated PTH. No evidence of adenoma found . She has been seenby ENT for voice tremors and dysphonia, not specifically for PTH issues. For p.r.n. follow-up with ENT. 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 TODAY January 31 2023: Initially after pacer did /felt better early 2022. But since Sep fvisit here, Admitted 11/17-11/13 for TIA, UTI, acute HF exacerbation Admitted [facility] November for symptomatic anemia w/ hgb 7.1 >> EGD w/ gastritis; report from procedure recommends consideration of possible repeat colo d/t suboptimal prep w/ last colo ER eval late November after November d/c for allergic reaction Last week had R&L HC w/ Biggest news is she was seen by CT surgery [facility] for severe/symptomatic TR/MR >> not a surgical candidate; better for clip. Acc by her daugther today >> states jardiance was stopped at hospital d/c though this differsfrom d/c summary. PT NOT CUrrently taking jardiance though d/c summ says she should be on it. Pt states started jardiance in November but off it now. Weighs self daily >> 157-161#; breathing is worse than 2 mos back; breathing is "terrible" Using bipap qhs; just completed ON test for next steps in improving her rest/ sleep. OOBreath sitting in bed w/ HOB elevated. Previously could walk w/ cane now using walker but more d/t sob, d/t energy/fatigue. Occasional leg weakness >> R knee gives out Stable chronic joint pain, neuropathy; very dry skin Noting slow voids at times, slow to start void.no incomplete voids or dysuria. No nocturia. Notes no blood in stool > on iron. In had 2 venofer infusions. No SIENNA to date. Frequent falls >> Last fall 2 wks back; one before that. Drinks between 40-60 oz fluids daily >> water w/ crystal lite; no other beverages Takes AM pills 11-noon; goes to bed after 10 pm. REVIEW OF SYSTEMS General: No weakness, No fevers, sweats, or chills, No change in weight. Head: No significant headache Eyes: No recent significant change in vision. Respiratory: No cough; breathing as above Cardiovascular:No chest pain; deniespalpitations, and No syncope Gastrointestinal: No nausea, vomiting, diarrhea No hematemesis, No blood in stools No abdominal pain Urinary: No dysuria, No hematuria. No flank pain Musculoskeletal: Nonewmuscle pains or cramps; ongoing LE edema eli RLE ,+joint painstable /chronic Skin: No itching Neuro > stable chronic [...] Release Take 1 Tablet by mouth daily. Sotalol HCl 80 MG Oral Tablet (Betapace) Take by mouth 0.5 Tablets in the morning AND 0.5 Tablets before bedtime. 0.5 tablet twice daily. 90 Tablet 3 Vitamin D3 50 MCG (2000 UT) Oral Capsule Take 2 Capsules by mouth in the morning. 60 Capsule 5 OneTouch Delica Plus [id number] USE TWO TIMES A DAY DIRECTED 200 [...] by mouth at bedtime. 60 Tablet 11 BiPAP every night at bedtime. Fluticasone-Salmeterol 250-50 MCG/ACT Inhalation Aerosol Powder Breath [...] in the evening. 60 Tablet 5 Ipratropium Weeping Water 0.03 % Nasal Solution Administer 2 Sprays [...] the morning and 1 tablet 4-6 hours [id number] Tablet 3 Acetaminophen 325 MG Oral Tablet (Tylenol) Take 2 Tablets by mouth every 6 hours as needed. 100Tablet 0 Polyethylene Glycol 3350 17 GM Oral Packet Take 1 Packet by mouth daily as needed for Constipation. Levothyroxine Sodium 125 MCG Oral Tablet (Levoxyl) [...] JESS Vaca 2.5 mg at 10/31/22 1441 PHYSICAL EXAMINATION: BP Readings from Last 6 Encounters: 02/13/23 102/62 02/03/23 112/50 01/31/23 115/78 01/27/23 98/56 01/25/23 118/54 01/24/23 100/44 Wt Readings from Last 6 Encounters: 02/13/23 72.1 kg (159 lb) 02/03/23 72.6 kg (160 lb) 01/31/23 72.6 kg (160 lb 1.6 oz) 01/27/23 73.1 kg (161 lb 1.6 oz) 01/17/23 72.8 kg (160 lb 9.6 oz) 01/14/23 73.9 kg (163 lb) Pulse Readings from Last 6 Encounters: 02/13/23 68 02/03/23 60 01/31/23 70 01/27/23 72 01/25/23 64 01/24/23 60 NAD, oriented x 3, ambulatory w/ walker Normocephalic, atraumatic, eomi nonicteric sclerae MMM, hoarse Supple neck RRR w/o g/r; SM; trace RLE edema Bibasilar crx, no respiratory distress NT abd, +BS, soft No cyanosis or clubbing No rash No tremor, focal or global weakness; fluent speech, good historian LABS: Recent Labs Units 02/05/23 0822 01/24/23 0740 01/21/23 1033 01/06/23 1049 SODIUM - [facility] mmol/L 140 139 142 140 POTASSIUM - [facility] mmol/L 4.2 3.8 4.4 4.6 CHLORIDE - [facility] mmol/L 102 103 103 102 CO2 - [facility] mmol/L 24 25 BUN - [facility] mg/dL 48* 55* 63* 49* CREATININE - [facility] mg/dL 1.6* 1.8* 2.1* 1.7* Latest Reference Range & Units 12/06/22 10:42 12/12/22 09:37 12/23/22 10:42 01/06/23 10:49 01/21/23 10:33 01/24/23 07:40 Estimated Glomerular Filtration Rate >=60 mL/min 32 (L) 28 (L) 31 (L) 29 (L) 23 (L) 28 (L) Latest Ref Rng 06/12/2022 06/27/2022 07/22/2022 07/30/202208/0708/07/2022 NEPH-FLOW eGFR >=60 mL/min 37 (L) 42 (L) 46 (L) 39.5 (E) Latest Ref Rng 08/14/2022 08/27/2022 09/24/2022 10/01/2022 10/07/2022 10/31/2022 NEPH-FLOW eGFR >=60 mL/min 39 (L) 41 (L) 39 (L) 40 (L) Latest Ref Rng 11/18/2022 12/05/2022 12/06/2022 NEPH-FLOW eGFR >=60 mL/min 36 (L) 32 (L) 32 (L) Recent Labs Units 02/05/23 0822 01/24/23 0740 01/21/23 1033 WBC AUTO - [facility] K/uL 9.43 8.23 9.09 HGB - [facility] g/dL 10.7* 9.8* 9.7* PLATELET AUTO - [facility] K/uL 184 178 173 Recent Labs Units 02/05/23 0822 01/24/23 0740 01/21/23 1033 01/06/23 1049 06/12/22 1054 05/01/22 0839 04/03/22 0959 CALCIUM - [facility] mg/dL 9.9 9.5 9.7 9.7 < > 9.3 10.0 PHOSPHORUS - [facility] mg/dL -- -- -- -- -- 3.9 4.3 25-HYDROXY VITAMIN D - [facility] ng/mL -- -- -- -- -- -- 55 < > = values in this interval not displayed. Latest Reference Range & Units 04/03/22 09:59 05/01/22 08:39 PTH 15 - 65 pg/mL 65 77 (H) (H): Data is abnormally high Recent Labs Units 08/27/22 1609 04/03/22 0959 10/26/21 1436 HEMOGLOBIN A1C - [facility] % 6.2* 5.8* 6.5* Latest Reference Range & Units 09/21/19 17:19 10/05/20 15:26 10/26/21 14:39 05/01/22 08:39 Albumin / Creatinine Ratio, Urine <30 mg/g Creat 13 8 29 <16 Recent Labs Units 12/30/22 1657 05/01/22 0839 [...] /HPF 0-2 3-5* -- ASSESSMENT AND PLAN: Worsening renal function (Primary) - BASIC METABOLIC PANEL Stage 3b chronic kidney disease (HCC) - BASIC METABOLIC PANEL 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) - Torsemide 10 MG Oral Tablet (Demadex); Take 1 tablet in the morning and 1 tablet 4-6 hours later Hyperuricemia Secondary hyperparathyroidism, renal (HCC) HTN, goal below 130/80 Follow Up: Return in about 3 months (around 05/03/2023) for clinic visit w/ . | For: clinic visit w/ Progressive CKD now bordering on stage 4; markedly worsening functional status > [id number]/energy related to cardiac status and comploicated by anemia. Creatinine, hemoglobin trends reviewed along w/ d/c summary [facility] October, November and ER [facility] November 2022. Also reviewed last GI note, last cardiology note. chemistires ok; voluem status a challenge. Trial of same torse dose broken up thru day as below to preserve renal function a bit hopefull and possilby improve sleep w/o affecting /worsening weight/volume status -follow closely to help stabilize renal function as cardiopulmonary evals continue -may need heller w/u of anemia > f/u w/ GI as below Urged pt to clarify indication if any for jardiance w/ cardiology, PCP HTN w/ acceptable control > continue torsemide HPTH stable > continue D3 Patient Instructions -time torsemide as follows: 10 mg w/ late AM meds, 10 mg 4 hrs or more later >>watch to see if above retimed dosing 1) disrupts sleep more 2) affects daily weights ->from a kidney standpoint you do not need jardiance but other providers may feel you need it >> recommend discussing with cardiology and/or Dr Calvo whether you need this med you've not been taking since October or November -no other medication changes today -avoid medicines like aleve, advil, ibuprofen, aspirin more than 81 mg daily and other NSAIDS whichare not good for kidney patients. Take only tylenol (acetaminophen) up to 2000 mg daily as needed for pain or as directed by your primary care provider. -after about a week on different torsemide, recheck labs -no colonoscopy planned currently >> pls discuss w/ hematology next week whether colo may be indicated, whether you should see GI sooner to discuss I spent a total of 40-54 minutes (exact time 42 mins) on the date of service in preparation, delivery, and documentation of the care provided to Inga Barakat excluding any time spent in the performance of separately billed services. Veto Corona MD Nephrology, [facility] [address] [facility] [address] CC: Ref: VETO CORONA[[id number]] [address] [place] [address] (office) [phone] (fax) PCP: [place] [address] [phone] This chart was completed in part utilizing [employer] Direct Speech Voice Recognition Software. Randomword insertions, pronoun errors, and incomplete sentences are an occasional consequence of this system due to software limitations, and ambient noise. Any questions or concerns about the content, text, or information contained within the body of this dictation should be directly addressed to the provider for clarification. documented in this encounter Nursing Notes * Heather N Peñaloza, RN - 01/31/2023 1:37 PM EDT Patient identified by full name and date of Chief Complaint Patient presents with Re-Check Pt presents as a CKD stage 3B follow up. Medications reviewed, pt offers no complaints currently. documented in this encounter Miscellaneous Notes * Result Encounter Note - Veto Corona MD - 02/05/2023 10:47 PM EDT Kidney labs stable; continue same. documented in this encounter Plan of Treatment Upcoming Encounters Date Type Specialty Care Team Description 02/18/2023 Office Visit Family Medicine Grey Calvo DO [address] [place] [address] 02/20/2023 Office Visit Otolaryngology Cheri Castillo PA-C [address] [place] [address] 02/21/2023 Laboratory Laboratory [place], Lab Scenery [address] [place] [address] 02/21/2023 Nurse Only Hematology Oncology [place], Nurse Hem Onc Scenery [address] [place] [address] 03/07/2023 Home Visit [facility] Karlene Zepeda RN [address] [place] [address] 03/17/2023 Office Visit Cardiology Stephen Hewitt DO [address] [place] [address] 03/19/2023 Imaging Radiology 04/02/2023 Office Visit Vascular Surgery Aj Sahni MD [address] [place] [address] 04/07/2023 Office Visit Gastroenterology Janine Cunningham CRNP [address] [place] [address] 04/11/2023 Office Visit Hematology Oncology Nereyda Metz CRNP [address] [place] [address] 05/09/2023 Office Visit Nephrology Veto Corona MD [address] [place] [address] 05/22/2023 Office Visit Ophthalmology Wilbur Benavides, [address] [place] [address] 10/24/2023 Office Visit Gynecology Oncology Chris Peng PA-C [address] [place] [address] Health Maintenance Due Date Last Done Comments HbA1c 02/24/2023 08/27/2022, 03/25, 10/26/2021, Additional history exists DIABETES-EYE EXAM 04/11/2023 04/11/2022, , 04/11/2022, Additional history exists Albumin/Creatinine Ratio 05/01/20232 022, 10/26/2021, 10/05/2020, Additional history exists CKD PHOS USE SMARTSET 79439 05/01/202302/2022, 04/03/2022, 12/05/2020, Additional history exists GFR 08/07/2023 02/05/2023, 09/2022, 01/21/2023, Additional history exists TSH 09/24/2023 09/24/2022, 10/2022, 02/12/2022, Additional history exists DIABETES-FOOT EXAM 10/01/2023 10/01/2022, 0 10/26/2021, 12/05/2020, Additional history exists Depression Screening, Annual for Pts 12 and Over 01/18/2024 01/17/2023 CKD HGB USE SMARTSET 93955 02/06/202402/05, 02/05/2023, 01/24/2023, Additional history exists DXA [...] this encounter Medical Devices Implanted Type Area Allied Health Professional Device Identifier Shelf Expiration Date Model / Serial / Lot Cath Thermodilution 6fr - [id number] Implanted:Qty: 1 on 01/24/2023 by Wilbur Rivera MD at [facility] [employer] TERE [id number] 10/15/2024 [id number] / / [id number] documented as of this encounter Procedures Procedure Name Priority Date/Time Associated Diagnosis Comments BASIC METABOLIC PANEL Routine 02/05/2023 8:22 AM EDT Worsening renal function Stage 3b chronic kidney disease (HCC) documented in this encounter Results * (ABNORMAL) BASIC METABOLIC PANEL (02/05/2023 8:22 AM EDT) BUN 48(H) 6 - 20 mg/dL 02/05/2023 9:50 AM EDT [facility] 56 Creatinine 1.6(H) 0.5 - 1.0 mg/dL 02/05/2023 9:50 AM EDT [facility] 56 Estimated Glomerular Filtration Rate 32(L) >=60 mL/min 02/05/2023 9:50 AM EDT [facility] 56- Comment:eGFR is calculated b ased on the CKD-EPI 2020 equation Sodium 140 135 - 146 mmol/L 02/05/2023 9:50 AM EDT [facility] 56- Potassium 4.2 3.5 - 5.1 mmol/L 02/05/2023 9:50 AM EDT [facility] 56- Chloride 102 98 - 107 mmol/L 02/05/2023 9:50 AM EDT [facility] 56- CO2 23 22 - 32 mmol/L 02/05/2023 9:50 AM EDT [facility] 56- Anion Gap 15 7 - 15 mmol/L 02/05/2023 9:50 AM EDT [facility] 56- Glucose 177(H) 70 - 120 mg/dL 02/05/2023 9:50 AM EDT [facility] 56- Calcium 9.9 8.4 - 10.2 mg/dL 02/05/2023 9:50 AM EDT [facility] 56- Blood Venous blood specimen / Unknown Venipuncture / Unknown 02/05/2023 8:22 AM EDT 02/05/2023 8:22 AM EDT Veto Corona MD LAB BLOOD ORDERAB LES [facility] [address] [place] [address] documented in this encounter Visit Diagnoses Diagnosis Worsening renal function- Primary Stage 3b chronic kidney disease (HCC) 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) Hyperuricemia Other abnormal blood chemistry Secondary hyperparathyroidism, renal (HCC) Secondary hyperparathyroidism (of renal origin) HTN, goal below 130/80 Unspecified essential hypertension documented in this encounter Advance Directives Latest Code Status on File Code Status [...] Agen t (per Health Care Power of Bed Control Specialist document) Care Teams Grease Monkey Relationship Specialty Start Date End Date Grey Calvo, [address] [facility] [place] [address] PCP - General Internal Medicine 03/24/13 documented as of this encounter
--- OUTSIDE RECORDS SUMMARY | 2023-08-14 23:46 | External Medical Summary | Summary of Care ---
Author Name Unknown Organization [facility] Address [address] [place] [address] Phone [phone] Care Team Providers Care Heat Reader Name Role Phone Florentin Calvo DO Primary Care Provider [phone] Encounter Details Date Type Department Care Team Description 02/17/2023 Telephone Family Practice [address] [place] [address] [place] [address] Florentin Calvo DO [address] [place] [address] Allergies Active Allergy Reactions Severity Noted Date [...] Capsule 5 04/04/2022 Active OneTouch Delica Plus [id number] USE TWO TIMES A DAY DIRECTED 200 [...] Oral Tablet (Lipitor)Indications :PVD (peripheral vascular disease) ([facility]),Type 2 diabetes mellitus with stage 3a chronic kidney disease and hypertension ([facility]) Take 1 Tablet by mouth in the [...] evening. 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 She has not been able to tolerate wearing the BiPAP recently. Patient is using nocturnal oxygen only at this time. * Telephone Encounter - Hilda Awad LPN - 02/17/2023 3:58 PM EDT Patient is to be using )2 at 2 LPM WITH bipap at night per Dr Harper Please discuss tomorrow at visit per G@H nurse. documented in this encounter Plan of Treatment Upcoming Encounters Date Type Specialty Care Team Description 02/20/2023 Office Visit Otolaryngology Cheri Castillo PA-C [address] [place] [address] 02/21/2023 Laboratory Laboratory [place], Lab Scene [address] [place] [address] 02/21/2023 Nurse Only Hematology Oncology [place], Nurse Hem Onc Scenery 200 [place] [address] 03/07/2023 Home Visit [facility] Karlene Zepeda RN [address] [facility] [place] [address] 03/17/2023 Office Visit Cardiology Stephen Hewitt DO [address] [place], [place] [address] 03/19/2023 Imaging Radiology 04/02/2023 Office Visit Vascular Surgery Aj Sahni MD [address] [place] [address] 04/07/2023 Office Visit Gastroenterology Janine Cunningham CRNP [address] [place], [place] [address] 04/11/2023 Office Visit Hematology Oncology Nereyda Metz CRNP [address] [facility] [place] [address] 05/09/2023 Office Visit Nephrology Rosario Green MD 200 [facility], [place] [address] 05/22/2023 Office Visit Ophthalmology Wilbur Benavides DO [address] [facility] [place] [address] 05/23/2023 Office Visit Family Medicine Florentin Calvo, DO [address] [place] [address] 10/24/2023 Office Visit Gynecology Oncology Chris Peng PA-C [address] [facility] [address] Health Maintenance Due Date Last Done Comments HbA1c 02/24/2023 08/27/2022, 03/25, 10/26/2021, Additional history exists DIABETES-EYE EXAM 04/11/2023 04/11/2022, , 04/11/2022, Additional history exists Albumin/Creatinine Ratio 05/01/2023 022, 10/26/2021, 10/05/2020, Additional history exists CKD PHOS USE SMARTSET 33164 05/01/2023 09/0 02/2022, 04/03/2022, 12/05/2020, Additional history exists GFR 08/07/2023 02/05/2023, 060 09/2022, 01/21/2023, Additional history exists TSH 09/24/2023 09/24/2022, 0 10/2022, 02/12/2022, Additional history exists DIABETES-FOOT EXAM 10/01/2023 10/01/2022, 0 10/26/2021, 12/05/2020, Additional history exists Depression Screening, Annual for Pts 12 and Over 01/18/2024 01/17/2023 CKD HGB USE SMARTSET 24788 02/06/202402/05, 02/05/2023, 01/24/2023, Additional history exists DXA [...] this encounter Medical Devices Implanted Type Area Scrap Handler Device Identifier Shelf Expiration Date Model / Serial / Lot Cath Thermodilution 6fr - [id number] Implanted:Qty: 1 on 01/24/2023 by Wilbur Rivera [place] [facility] [employer] TERE [id number] 10/15/2024 [id number] / / [id number] documented as of this encounter Advance Directives Documents on File Type Date Recorded Patient Buffing Wheel Former Automatic Expl anation Advance Directives and Living Will 11/29/2022 ADVANCE DIRECTIVE / LIVING WILL Power of Knot Tier 11/29/2022 POWER OF A TTORNEY Advance Directives and Living Will 10/24/2014 ADVANCE DIRECTIVE / LIVING WILL Power of Knot Tier 10/24/2014 POWER OF A TTORNEY Latest Code [...] Name Relationship Healthcare Agent [facility] p Communication Bright Barakat Adult Child Health Care Agen t (per Health Care Power of Knot Tier document) Care Teams Heat Reader Relationship Specialty Start Date End Date Florentin Calvo, [address] [place] [address] PCP - General Internal Medicine 03/24/13 documented as of this encounter
--- OUTSIDE RECORDS SUMMARY | 2023-08-14 23:46 | External Medical Summary | Summary of Care ---
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 Longstanding persistent atrial fibrillation 05/0 04/2022 04/05/2022 Hypertension associated with stage 3b chronic [...] EDT NEPHROLOGY CLINIC NOTE Nephrology, Jerri Zamora [address] [facility] [address] 01/31/2023, 2:14 PM Patient Name: Inga Barakat [...] negative and no urology f/u needed. Hospitzalized [facility] February 2022 for anemiax 1 wk>(creat from [...] for TIA, UTI, acute HF exacerbation Admitted [facility] November for symptomatic anemia w/ hgb 7.1 >> EGD w/ gastritis; report from procedure recommends consideration of possible repeat colo d/t suboptimal prep w/ last colo ER eval late November after November d/c for allergic reaction Last week had R&L HC w/ Biggest news is she was seen by CT surgery [facility] for severe/symptomatic TR/MR >> not a surgical [...] morning. 60 Capsule 5 OneTouch Delica Plus [id number] USE TWO TIMES A DAY DIRECTED 200 [...] in the evening. 60 Tablet 5 Ipratropium Vilas 0.03 % Nasal Solution Administer 2 Sprays [...] the morning and 1 tablet 4-6 hours [id number] Tablet 3 Acetaminophen 325 MG Oral Tablet [...] (L) Latest Ref Rng 06/12/2022 06/27/2022 07/22/2022 07/30/2022 08/07/2022 NEPH-FLOW eGFR >=60 mL/min 37 (L) 42 [...] hyperparathyroidism, renal (HCC) HTN, goal below 130/80 Iron deficiency anemia due to chronic blood loss Follow Up: Return in about 3 months (around 05/03/2023) for clinic visit w/ . | For: clinic visit w/ Progressive CKD now bordering on stage 4; markedly worsening functional status > [id number]/energy related to cardiac status and comploicated by anemia. Creatinine, hemoglobin trends reviewed along w/ d/c summary [facility] October, and ER [facility] November 2022. Also reviewed last GI note, last cardiology, last hematology provider notes. chemistires ok; voluem status a challenge. Trial [...] continue torsemide HPTH stable > continue D3 Last heme note states colonoscopy a reasonable plan; urged pt to d/w GI; ? Given anemia for which she follows w/ heme whether SIENNA would be reasonable for her, given voluem challenges w/ potential transfusion. Patient Instructions -time torsemide as follows: 10 [...] separately billed services. Veto Corona MD Nephrology, [facility] [address] [facility] [address] CC: Ref: VETO CORONA[[id number]] [address] [place] [address] (office) [phone] (fax) PCP: [place] [address] [phone] This chart was completed in part utilizing Need[employer] Direct Speech Voice Recognition Software. Randomword insertions, pronoun errors, and incomplete sentences are an occasional consequence of this system due to software limitations, and ambient noise. Any questions or concerns about the content, text, or information contained within the body of this dictation should be directly addressed to the provider for clarification. documented in this encounter Nursing Notes * Heather Peñaloza RN - 01/31/2023 1:37 PM EDT Patient [...] Description 02/18/2023 Office Visit Family Medicine Grey Calvo, DO [address] [place] [address] 02/20/2023 Office Visit Otolaryngology Cheri Castillo PA-C [address] [place] [address] 02/21/2023 Laboratory Laboratory [place], Lab [facility] [address] [place] [address] 02/21/2023 Nurse Only Hematology Oncology [place], Nurse Hem Onc Scene [address] [place] [address] 03/07/2023 Home Visit [facility] Karlene Zepeda RN [address] [place] [address] 03/17/2023 Office Visit Cardiology Stephen Hewitt, DO [address] [place] [address] 03/19/2023 Imaging Radiology 04/02/2023 Office Visit Vascular Surgery Aj Sahni MD [address] [place] [address] 04/07/2023 Office Visit Gastroenterology Janine Cunningham CRNP [address] [place] [address] 04/11/2023 Office Visit Hematology Oncology Nereyda Metz CRNP [address] [facility] [place] [address] 05/09/2023 Office Visit Nephrology Veto Corona MD [address] [place] [address] 05/22/2023 Office Visit Ophthalmology Wilbur Benavides DO [address] [place] [address] 10/24/2023 Office Visit Gynecology Oncology Chris Peng PA-C [address] [place] [address] Health Maintenance Due Date Last Done Comments HbA1c 02/24/2023 08/27/2022, 03/25, 10/26/2021, Additional history exists DIABETES-EYE EXAM 04/11/2023 04/11/2022, , 04/11/2022, Additional history exists Albumin/Creatinine Ratio 05/01/20232 022, 10/26/2021, 10/05/2020, Additional history exists CKD PHOS USE SMARTSET 13257 05/01/2023 02/2022, 04/03/2022, 12/05/2020, Additional history exists GFR 08/07/2023 02/05/2023, 09/2022, 01/21/2023, Additional history exists TSH 09/24/2023 09/24/2022, 10/2022, 02/12/2022, Additional history exists DIABETES-FOOT EXAM 10/01/2023 10/01/2022, 0 10/26/2021, 12/05/2020, Additional history exists Depression Screening, Annual for Pts 12 and Over 01/18/2024 01/17/2023 CKD HGB USE SMARTSET 79703 02/06/202402/05, 02/05/2023, 01/24/2023, Additional history exists DXA [...] this encounter Medical Devices Implanted Type Area Senior Lead Project Manager Device Identifier Shelf Expiration Date Model / Serial / Lot Cath Thermodilution 6fr - [id number] Implanted:Qty: 1 on 01/24/2023 by Wilbur Rivera MD at [facility] [place] [employer] TERE [id number] 10/15/2024 [id number] / / [id number] documented as of this encounter Procedures Procedure Name Priority Date/Time Associated Diagnosis Comments BASIC METABOLIC PANEL Routine 02/05/2023 8:22 AM EDT Worsening renal function Stage 3b chronic kidney disease (HCC) documented in this encounter Results * (ABNORMAL) BASIC METABOLIC PANEL (02/05/2023 8:22 AM EDT) BUN 48(H) 6 - 20 mg/dL 02/05/2023 9:50 AM EDT [address] Creatinine 1.6(H) 0.5 - 1.0 mg/dL 02/05/2023 9:50 AM EDT [facility] 56 Estimated Glomerular Filtration Rate 32(L) >=60 mL/min 02/05/2023 9:50 AM EDT [facility] 56- Comment:eGFR is calculated b ased on the CKD-EPI 2020 equation Sodium 140 135 - 146 mmol/L 02/05/2023 9:50 AM EDT [facility] 56- Potassium 4.2 3.5 - 5.1 mmol/L 02/05/2023 9:50 AM EDT [facility] 56- Chloride 102 98 - 107 mmol/L 02/05/2023 9:50 AM EDT [facility] 56- CO2 23 22 - 32 mmol/L 02/05/2023 9:50 AM EDT [facility] 56- Anion Gap 15 7 - 15 mmol/L 02/05/2023 9:50 AM EDT [facility] 56- Glucose 177(H) 70 - 120 mg/dL 02/05/2023 9:50 AM EDT [facility] 56- Calcium 9.9 8.4 - 10.2 mg/dL 02/05/2023 9:50 AM EDT [facility] 56- Blood Venous blood specimen / Unknown Venipuncture / Unknown 02/05/2023 8:22 AM EDT 02/05/2023 8:22 AM EDT Veto Corona MD LAB [facility]OD [facility] [address] [place] [address] documented in this encounter Visit Diagnoses Diagnosis Worsening renal function- Primary Stage 3b chronic kidney disease (HCC) 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) Hyperuricemia Other abnormal blood chemistry Secondary hyperparathyroidism, renal (HCC) Secondary hyperparathyroidism (of renal origin) HTN, goal below 130/80 Unspecified essential hypertension Iron deficiency anemia due to chronic blood loss Iron deficiency anemia secondary to blood loss (chronic) documented in this encounter Advance Directives Latest [...] Agen t (per Health Care Power of Vocational Technical Education Teacher document) Care Teams Nail Tech Relationship Specialty Start Date End Date Grey Calvo, [address] [place] [place] [address] PCP - General Internal Medicine 03/24/13 documented as of this encounter
[2023-08-15] MEDS ORDERED: LEVOTHYROXINE SODIUM 125 MCG TABLET PO SCH (06:30)
[2023-08-15 08:54] LABS: Basophils # (auto) 0.07 K/uL (0.00-0.20); Basophils % (auto) 0.9 %; Eosinophils # (auto) 0.74 K/uL (0.00-0.50); Eosinophils % (auto) 9.4 %; Hematocrit (blood only) 27.5 % (37.0-47.0); Hemoglobin 8.8 g/dl (12.0-16.0); Immature Granulocytes # (auto) 0.03 K/uL (0.01-0.20); Immature Granulocytes % (auto) 0.4 %; Lymphocytes # (auto) 0.96 K/uL (1.20-3.40); Lymphocytes % (auto) 12.2 %; Mean Corpuscular Hemoglobin 30.1 pg (25.0-34.0); Mean Corpuscular Volume 94.2 fL (80.0-100.0); Mean Platelet Volume 10.7 fL (9.4-12.4); Monocytes # (auto) 0.67 K/uL (0.11-0.59); Monocytes % (auto) 8.5 %; Neutrophils # (auto) 5.41 K/uL (1.40-6.50); Neutrophils % (auto) 68.6 %; Platelet Count 198 K/uL (130-400); RDW Coefficient of Variation 16.3 % (11.5-14.5); RDW Standard Deviation 55.9 fL (36.4-46.3); Red Blood Count 2.92 M/uL (4.20-5.40); White Blood Count 7.88 K/ul (4.8-10.8)
[2023-08-15] MEDS ORDERED: FOLIC ACID 1 MG TAB PO SCH (09:00)
[2023-08-15] MEDS ORDERED: UMECLIDINIUM/VILANTEROL 62.5/25MCG 7 PUFFS/INHALER INH SCH (09:00)
[2023-08-15] MEDS ORDERED: CYANOCOBALAMIN (B-12) 100 MCG TABLET PO SCH (09:00)
[2023-08-15] MEDS ORDERED: SERTRALINE HCL 100 MG TABLET PO SCH (09:00)
[2023-08-15] MEDS ORDERED: CHOLECALCIFEROL 1,000 UNITS 25 MCG TAB PO SCH (09:00)
[2023-08-15] MEDS ORDERED: FERROUS SULFATE 325 MG TAB PO SCH (09:00)
[2023-08-15] MEDS ORDERED: TORSEMIDE 10 MG TAB PO SCH (09:00)
[2023-08-15] MEDS ORDERED: ATORVASTATIN 20 MG TAB PO SCH (09:00)
[2023-08-15] MEDS: PANTOprazole 40 MG TAB PO SCH (09:01)
[2023-08-15] MEDS: SOTALOL HCL 80 MG TAB PO SCH (09:02)
[2023-08-15] MEDS: INSULIN ASPART PER UNIT CHARGE SC SCH ×2 (09:03→12:17)
[2023-08-15 09:04] LABS: Estimated Average Glucose 148 mg/dl; Hemoglobin A1C 6.8 % (4.5-5.6)
[2023-08-15 09:13] LABS: BUN Creatinine Ratio 24.9 (10-20); Calcium 9.2 mg/dl (8.6-10.3); Chol HDL Ratio 2.2 (0-5); Est GFR (African American) 27.2 ml/min; Est GFR (Non-African American) 23.5 ml/min; Potassium 4.3 mmol/L (3.5-5.1)
--- NOTE | 2023-08-15 09:55 | Cardiology Consultation ---
Date of Consultation August 15, 2023 Assessment & Plan (1) TIA (transient ischemic attack): (2) Stroke-like symptoms: (3) Paroxysmal atrial fibrillation: (4) Presence of Watchman left atrial appendage closure device: (5) CKD (chronic kidney disease): (6) S/P mitral valve clip implantation: Plan Patient admitted for stroke like symptoms, occurring about 12 hours prior to admission. Resolved upon arrival to ER. Head/neck CTA unremarkable. She has a complex history which includes PAF (no recent arrhythmias on device interrogation) not on anticoagulation therapy due to severe GI bleeding/anemia in the past. She underwent recent Watchman 2 weeks ago and was placed on dual antiplatelet therapy at that time for at least 45 days. She denies missed doses of ASA/Plavix. She had mitral clip performed in February 2023 with improved mitral regurgitation and CHF symptoms. she has residual moderate/severe TR and pulm hypertension. She likely needs Brain MRI. Discussed with Dr. Snowden. She has pacemaker that is compatible for MRI. However will need to verify that her mitral clip and watchman implantation are compatible for MRI at this time. Dr. Snowden to discuss with radiology and possibly Dr. Rivera, interventional cardiology. In the meantime, recommend echocardiogram with bubble study given previously noted residual septal perforation post mitral valve clip Continue ASA and Plavix. Continue statin. Neurology consulted. Appreciate recommendations. In the meantime, we were also consulted in regards to her sotalol and CKD with GFR around 30. This has been stable over the last 6-12 months. She was previously intolerant of amiodarone. Sotalol is likely the only option for antiarrhythmic therapy in this setting. Her pacemaker interrogation is without afib or ventricular arrhythmias. Would continue low dose sotalol at 40 mg BID as the benefit of the medication at this time to prevent recurrent afib outweighs the risk of potential arrhythmias. Continue all other outpatient medications. Case discussed with Dr. Snowden I spent a total of 80 minutes on the date of service in preparation, delivery, and documentation of the care provided to this patient, excluding any time spent in the performance of separately billed services. Abigail Goncalves PA-C Department of Cardiology, [facility] This chart was completed in part utilizing Speech Voice Recognition Software. Grammatical errors, random word insertions, pronoun errors, and incomplete sentences are an occasional consequence of this system due to software limitations, ambient noise, and hardware issues. Any formal questions or concerns about the content, text, or information contained within the body of this dictation should be directly addressed to the provider for clarification. Supervising Physician Co-Signing Physician Notes Supervising Physician Attestation: I have personally performed a history and physical examination on the patient. I agree with the physician advertising assistant manager's findings and plan as documented with the following additions. Subjective: Pt seen. Son, Bright, and his spouse at the bedside. Pt feels well. No symptoms suggestive of what she had 2 nights ago. Feels her tongue remains slightly "heavy" , however no dysarthria and aphasia. I personally hand-delivered to the operative reports from home mitral valve clip and percutaneous left atrial appendage occlusion device to the MRI department today so that they could be reviewed by the MRI safety team to ensure she was a suitable candidate for the device. Arrangements were also made for her pacemaker to be interrogated with settings changed to allow for MRI and then placed back to her previous settings. Exam: CV: regular rhythm, 1/6 SM , no edema Chest: pacer pocket clean , dry, intact Data: MRI brain without acute abnormality. Echo: normal LVEF, mld residual MR, Mild to moderate TR, Mild to moderate Pulm HTN, PASP 50 mm Hg. Pacer check, no recent AF episodes , normal function Assessment and Plan: TIA Mild QT prolongation Patient with ongoing complex issues of being high risk for thrombotic complication such as stroke in the setting of paroxysmal atrial fibrillation and has had multiple bleeding events. She has therefore been off of anticoagulation completely for about 8 months. She ultimately underwent percutaneous left atrial appendage occlusion device (Watchman device) 2 weeks ago at [facility], and is now on dual antiplatelet therapy with aspirin and clopidogrel which she is tolerating well without bleeding complication. Patient and family are aware that she has had some difficulty staying on a schedule where she is taking clopidogrel on a every 24 hours basis and she was counseled that it is important to maintain a regular routine. Cardiology asked for advice with regards to her sotalol dose. At the time of initiation, she had been on 80 mg twice daily and her QT interval was stable. Due to her renal insufficiency her dose was subsequently reduced down to 40 mg twice daily. She underwent dual-chamber permanent pacemaker in July,. And per review of her chart, her EKG tracings after the pacemaker reveal persistent mild QT prolongation just around 500 ms in the setting of ventricular paced QRS complex. At present, I think it is important for her to maintain sinus rhythm especially from a stroke prevention standpoint early after Watchman device given her inability to tolerate anticoagulation. She has not tolerated an alternative antiarrhythmic therapy with having previously been on amiodarone. At this time, I feel the benefits of ongoing treatment with sotalol 40 mg twice daily outweigh the risks and would recommend ongoing treatment with a 40 mg twice daily dose. The patient's neurologic symptoms have resolved. And her MRI is reassuring. She was encouraged to continue aspirin and clopidogrel every 24 hours without missed doses. She is already scheduled for a repeat transesophageal echocardiogram for reassessment of her device as per protocol which is scheduled at [facility] in late August. Patient stable from a cardiology perspective for discharge. Patient and family's questions answered to their satisfaction. I spent a total of 35 minutes on the date of service in preparation, delivery, and documentation of the care provided to this patient, excluding any time spent in the performance of separately billed services.. Hossein Snowden, History of Present Illness Reason for Consultation: Stroke like symptoms; Post Watchman; Chroncic sotalol with CKD Requesting Physician: Dr. Wilkinson Attending Physician: Dr. Snowden History of Present Illness Patient is a 83 year old female who is well known to [facility] Cardiology - Dr. 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 Rivera/JESS yN for interventional cardiology (Mitral clip/Watchman), Dr. Swann for EP. Complex history includes: 1. Chronic diastolic CHF secondary to valvular insufficiency Moderate to severe MR and severe TR, status post MitraClip XT W and mitral clip XT, 03/06/2023 Echo Jul 2023 - MIld MR with mitral clip; Moderate pulm hypertension 2. S/P Watchman device implantation on 07/31/[address] [facility] - discharged on ASA and Plavix 3. Severe pulmonary hypertension, also following with Pulmonary 3. History of sick sinus syndrome with recurrent syncope, status post LINQ, now status post dual chamber permanent pacemaker 07/2022 4. Paroxysmal atrial fibrillation, on sotalol. a. [id number] score of 7 (age 2, female, CHF,DM, TIA 2)- Not on AC due to severe GIB in the past 5. Hx of TIA- Eliquis restarted 10/2022- discontinued due to significant anemia 11/2022 6. Hypertension 7. Aneurysm of the left carotid artery 8. AV malformations 9. CKD stage 3 10. Diabetes 11. 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 Hypothyroidism 14. Anemia, receiving iron infusions Patient admitted for stroke like symptoms. Patient reports she awakened from sleep 2 nights ago. She was unable to get out of bed with "stiffness" and "weakness". She awakened her and was trying to tell him she could not get out of bed, when her words were garbled and "not making sense". No one called for help/assistance. She went back to bed. Upon awakening the next morning, her symptoms had resolved. She spoke with her daughter later that day and told her about her symptoms. Daughter than called another family member who lived close by and went to see the patient and they decided to come to ther ER for evaluation. She was worried she had a stroke. She had a Watchman implant on 07/31. She was discharged on ASA and Plavix. She denies missed doses. She denies recurrent weakness, slurred speech, dizziness. no palpitations. SOB at baseline. No chest pain. Upon evaluation in ER, head/neck CTA was unremarkable. labs unremarkable. CKD with creatinine of 1.9 noted. This is stable form outpatient testing recently. At time of consult, patient resting in bed. She was just ambulating with walker with PT and denied acute symptoms. Allergies Allergy/AdvReac Type Severity Reaction Status Date / Time Sulfa (Sulfonamide Allergy Severe Severe Verified 12/06/22 16:15 Antibiotics) rxn: rash and hives celecoxib Allergy Intermediate Rash/Hives/ Verified 12/06/22 16:15 Itching. cephalexin Allergy Intermediate Rash/Hives/ Verified 12/06/22 16:15 Itching. furosemide Allergy Intermediate Rash/Hives/ Verified 12/06/22 16:15 Itching. gabapentin Allergy Intermediate Rash/Hives/ Verified 12/06/22 16:15 Itching. pregabalin Allergy Intermediate Rash/Hives/ Verified 12/06/22 16:15 Itching. meclizine Allergy Unknown Unknown Verified 12/06/22 16:15 methylprednisolone Allergy Unknown Rash/Hives/ Verified 12/06/22 16:15 Itching. Penicillins Allergy Unknown Unknown. Verified 12/06/22 16:15 prednisone Allergy Unknown Rash/Hives/ Verified 12/06/22 16:15 Itching. vancomycin Allergy Unknown Jodi Verified 12/06/22 16:15 syn. . nickel Allergy Unknown Verified 12/06/22 16:15 dexamethasone AdvReac Intermediate Steroid Verified 12/06/22 16:15 psychosis. Home Medications Medication Instructions Recorded Confirmed Type montelukast 10 mg tablet 10 mg PO PM 04/08/19 08/14/23 History ferrous sulfate 325 mg (65 mg 325 mg PO DAILY 06/03/20 08/14/23 History iron) tablet atorvastatin 20 mg tablet 20 mg PO QAM 11/26/21 08/14/23 History cholecalciferol (vitamin D3) 50 100 mcg PO QAM 11/26/21 08/14/23 History mcg (2,000 unit) capsule (Vitamin D3) aspirin 81 mg tablet,delayed 81 mg PO HS 01/04/22 08/14/23 History release levalbuterol tartrate 45 1 puff inhalation Q4 PRN Shortness 08/07/22 08/14/23 History mcg/actuation aerosol inhaler Of Breath (Xopenex HFA) sertraline 100 mg tablet 100 mg PO DAILY 08/07/22 08/14/23 History sotalol 80 mg tablet 40 mg PO AMPM 08/07/22 08/14/23 History cyanocobalamin (vitamin B-12) 100 100 mcg PO DAILY 11/07/22 08/14/23 History mcg tablet (Vitamin B-12) folic acid 1 mg tablet 1 mg PO DAILY 11/07/22 08/14/23 History tiotropium 2.5 mcg-olodaterol 2.5 2 puff inhalation QAM 11/07/22 08/14/23 History mcg/actuation mist for inhalation (Stiolto Respimat) torsemide 10 mg tablet 20 mg PO QAM 11/07/22 08/14/23 History levothyroxine 125 mcg capsule 125 mcg PO DAILY #30 caps 11/13/22 08/14/23 Rx ipratropium bromide 21 mcg (0.03 2 spray intranasal DAILY 12/06/22 08/14/23 History %) nasal spray pantoprazole 40 mg tablet,delayed 40 mg PO BID #60 tabs 12/09/22 08/14/23 Rx release allopurinol 300 mg tablet 300 mg PO HS 08/14/23 08/14/23 History clopidogrel 75 mg tablet 75 mg PO PM 08/14/23 08/14/23 History lorazepam 1 mg tablet 1 mg PO HS PRN sleep/anxiety 08/14/23 08/14/23 History Patient History Medical History SSS (sick sinus syndrome) Chronic diastolic (congestive) heart failure TIA (transient ischemic attack) Nausea Leukocytosis Near syncope Hypotension Dehydration TIFFANY (acute kidney injury) Near syncope Elevated brain natriuretic peptide (BNP) level Pneumonia Atrial flutter Carotid artery aneurysm Prolonged QT interval Atrial fibrillation with RVR DM type 2 (diabetes mellitus, type 2) History of tobacco abuse Encounter for pre-operative examination Cholelithiasis Cholecystitis Chest pain at rest Pulmonary emphysema Osteoarthritis of right knee HTN (hypertension) RADHA (obstructive sleep apnea) Atrial fibrillation and flutter CKD (chronic kidney disease), stage III Meniere disease Depression Hypothyroidism Asthma, moderate persistent Surgical History History of hysterectomy History of cholecystectomy History of repair of left rotator cuff Hx of neck surgery H/O sinus surgery History of laminectomy Family History Father Diabetes Social History Smoking Status: Former smoker Tobacco Type: Cigarettes packs per day: 1.5; Cigarettes Per Day: 30; Smoking End Date: 47 years ago; Second Hand Exposure: No; Do You Dip or Chew Tobacco: No; Hx Alcohol Use: No Hx Substance Use: No Preferred Language: Paraguayan Communication Ability: Effective 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: No Beliefs That Will Affect Care: None marital status: Current Living Situation: Spouse Other Information That Helps Us Care for You: No Feels Safe at Home: Yes Safety Concerns: Feels Safe At This Time Assistive Devices: Walker Review of Systems Review of Systems: All systems reviewed & are unremarkable except as noted in HPI & below Physical Exam Constitutional: WD/WN, vitals as above well developed; no acute distress Neck: trachea midline, no thyromegaly Respiratory: normal respiratory effort; no respiratory distress Auscultation: + diminished lung sounds (but clear) Cardiovascular: Rate/Rhythm: regular rate and regular rhythm Heart Sounds: + murmur (II/ systolic murmur) Vessels: no JVD Extremities: + edema (trace ) Gastrointestinal (Abdomen): normal bowel sounds, soft, nontender, no hepatosplenomegaly Neurologic: PERRL, EOMI, accommodation nl, no face palsy, no dysarthria Psychiatric: A+Ox3, euthymic affect Results & Data Vital Signs (Past 12 Hours) Vital Signs Temp Pulse Pulse Resp BP Pulse Ox O2 Del Method 08/15/23 07:36 36.7 C 66 18 111/63 95 Room Air 08/15/23 03:51 36.5 C 70 18 111/61 93 Room Air 08/15/23 00:24 61 08/14/23 22:51 36.7 C 61 18 120/66 97 Room Air Laboratory Results Cardiac Enzymes 08/14/23 Range/Units 14:50 AST 48 H (13-39) U/L Troponin I High Sens 9.9 (0-14) pg/ml Coagulation 08/14/23 Range/Units 14:50 PT 10.9 (9.0-12.0) Seconds APTT 27 (21-31) Seconds Lipids 08/15/23 Range/Units 08:16 Triglycerides 112 (0-150) mg/dl Cholesterol 129 (0-200) mg/dl HDL Cholesterol 58 mg/dl Cholesterol/HDL Ratio 2.2 (0-5) CBC 08/14/23 08/15/23 Range/Units 14:50 08:16 WBC 9.64 7.88 (4.8-10.8) K/ul RBC 3.16 L 2.92 L (4.20-5.40) M/uL Hgb 9.6 L 8.8 L (12.0-16.0) g/dl Hct 29.4 L 27.5 L (37.0-47.0) % Plt Count 233 198 (130-400) K/uL Neut # (Auto) 6.79 H 5.41 (1.40-6.50) K/uL Lymph # (Auto) 1.26 0.96 L (1.20-3.40) K/uL [place] # (Auto) 0.72 H 0.67 H (0.11-0.59) K/uL Eos # (Auto) 0.76 H 0.74 H (0.00-0.50) K/uL Baso # (Auto) 0.07 0.07 (0.00-0.20) K/uL Comprehensive Metabolic Panel 08/14/23 08/15/23 Range/Units 14:50 08:16 Sodium 138 136 (136-145) mmol/L Potassium 4.4 4.3 (3.5-5.1) mmol/L Chloride 105 103 (98-107) mmol/L Carbon Dioxide 24 25 (21-32) mmol/L BUN 55 H 48 H (6-23) mg/dl Creatinine 1.92 H 1.93 H (0.6-1.2) mg/dl Glucose 153 H 145 H (70-99(Fasting)) mg/dl Calcium 9.4 9.2 (8.6-10.3) mg/dl AST 48 H (13-39) U/L ALT 25 (7-52) U/L Alkaline Phosphatase 176 H (34-104) U/L Total Protein 7.3 (6.0-8.3) gm/dl Albumin 4.3 (3.4-5.0) gm/dl Intake and Output 08/14/23 08/15/23 08/15/23 22:59 06:59 14:59 Intake Total 222 / 372 150 / 372 Output Total 251 / 551 300 / 551 Balance -29 / -179 -150 / -179 Intake: Oral 222 / 372 150 / 372 Output: Urine 250 / 550 300 / 550 # Bowel Movements Other: # Unmeasured Voids 1 Weight 73.057 kg 72.6 kg Weight Measurement Method Built in Bedscale Standing Scale Diagnostic Findings Telemetry reviewed: AV dual paced. No arrhythmias Device interrogated upon admission: appropriate function, battery longevity. no recent afib episodes. Last episode in October 2022 EKG on 08/14/23: AV dual-paced rhythm Abnormal ECG When compared with ECG of 18-DEC-2022 19:21, Vent. rate has decreased BY 5 BPM QT/QTc 510/510 ms EKG reviewed from 08/15/23: AV dual-paced rhythm Abnormal ECG When compared with ECG of 14-AUG-2023 14:55, (unconfirmed) No significant change was found QT/QTc 510/[address] 08/14/23 14:58 CT OF THE HEAD WITHOUT CONTRAST CLINICAL HISTORY: neuro deficit, acute stroke suspected COMPARISON STUDY: MRI of the brain and head CT November 07, 2022. TECHNIQUE: Helical axial images of the head were obtained without IV contrast. Automated exposure control was utilized for the study. A dose lowering technique was utilized adhering to the principles of ALARA. FINDINGS: No acute intracranial hemorrhage, midline shift or mass effect is present. The ventricular system is stable. White matter hypodensities are unchanged and favor small vessel disease. The basal cisterns are patent. No extra-axial collections are present. There are no findings to suggest acute dural sinus thrombosis or acute territorial infarct. No significant calvarial abnormalities are present. Extensive sinus opacification is noted. This has progressed since exam of November 07, 2022. IMPRESSION: 1. No acute intracranial findings. No change in appearance of the brain. 2. Progression of extensive sinus opacification. ACT 112: Negative or not required by law. Electronically signed by: Otoniel Lemus M.D. 08/14/2023 3:33 PM Head CTA 08/14/23 14:58 CT angio head w con CLINICAL HISTORY: neuro deficit, acute stroke suspected TECHNIQUE: CT angiography of the head was performed following intravenous administration of iodinated contrast. Coronal and sagittal MIPS were obtained from the axial data set and were submitted for review. Automated dose lowering techniques and/or adjustment according to patient size were utilized for this examination. All measurements were calculated based on NASCET criteria. CT DOSE: 908.62 mGy.cm Comparison: None available at the time of this dictation. FINDINGS: CTA Head: The anterior and posterior cerebral circulations are patent. No hemodynamically significant stenosis, aneurysm, dissection, or arteriovenous malformation is shown. IMPRESSION: 1. No occlusion, hemodynamically significant stenosis, aneurysm, dissection, or arteriovenous malformation in the major intracranial arteries. Assessment of stenosis of the internal carotid arteries is based on NASCET criteria. ACT 112: Negative or not required by law. Electronically signed by: Christian Murray M.D. 08/14/2023 3:39 PM Neck CTA 08/14/23 14:58 CT ANGIOGRAPHY OF THE NECK WITH CONTRAST CLINICAL HISTORY: neuro deficit, acute stroke suspected COMPARISON STUDY: CTA of the neck November 07, 2022. Technique: CT angiography of the carotid and vertebral arteries was obtained using Optir[employer] and 3D reconstruction on an independent workstation. NASCET criteria was utilized. Automated exposure control was utilized for the study. A dose lowering technique was utilized adhering to the principles of ALARA. Findings: Postoperative findings within the cervical spine are unchanged. There is no cervical lymphadenopathy. No cervical spine fractures are present. The b ilateral common carotid, cervical internal carotid and vertebral arteries are patent. There is minimal noncalcified plaque within the proximal right internal carotid artery without stenosis. There is minimal plaque within the left carotid bifurcation without stenosis. There is no dissection or aneurysm within the major vessels of the neck. IMPRESSION: No stenosis or dissection within the bilateral common carotid, cervical internal carotid or vertebral arteries. ACT 112: Negative or not required by law. Electronically signed by: Otoniel Lemus M.D. 08/14/2023 3:40 PM Echo report reviewed from 07/31/[address] [facility]: Interpretation Summary The examination is adequate to evaluate the referral indication. The qualitative LV ejection fraction is 60-64% (normal). No LV segmental wall motion abnormalities. No pericardial effusion is noted. There is evidence of prior mitral valve repair utilizing a percutaneous clip. The mean gradient across the valve is 5.5 mmHg at a HR of 60 bpm. Mild mitral regurgitation is present. There is evidence of prior trans-septal puncture with left to right flow by color Doppler. Moderate pulmonary hypertension is present. Echo report reviewed from Apr 2023: Interpretation Summary The examination is adequate to evaluate the referral indication. There was normal sinus rhythm during the examination. The qualitative LV ejection fraction is 55-59% (normal). The left atrium is severely enlarged. The right atrium is mildly enlarged. There is evidence of prior mitral valve repair utilizing a percutaneous clip. The mean gradient across the mitral valve at a heart rate of 60 bpm was 5.2 mmHg Trivial mitral regurgitation is present. Severe tricuspid regurgitation is present. Severe pulmonary hypertension is present. The estimated pulmonary artery systolic pressure is 73 mm Hg. Compared to the report of the previous postprocedure transthoracic study performed on 03/07/2023, the mean gradient across the mitral valve in diastole is relatively unchanged with gradient of 4 mm Hg at that time as compared to 5.2 mm Hg on the present study. Compared to the preprocedure transthoracic study dated 10/21/2022, the findings of severe tricuspid regurgitation are relatively unchanged with pulmonary artery systolic pressure estimated to be > 70 mm Hg Medications Administered Current Inpatient Medications Acetaminophen (Acetaminophen 325 Mg Tab) 650 mg PO Q4H PRN PRN Reason: Pain or Fever Stop: 09/13/23 18:35 Al Hydrox/Mg Hydrox/Simethicone (Aluminum/Magnesium Susp 30 Ml Udc) 15 ml PO Q4H PRN PRN Reason: Dyspepsia Stop: 09/13/23 18:35 Allopurinol (Allopurinol 300 Mg Tab) 300 mg PO HS JULIO CESAR Stop: 09/13/23 20:59 Last Admin: 08/14/23 20:18 Dose: 300 mg Aspirin (Aspirin 81 Mg Ectab) 81 mg PO HS [facility] Stop: 09/13/23 20:59 Last Admin: 08/14/23 20:18 Dose: 81 mg Atorvastatin Calcium (Atorvastatin 20 Mg Tab) 20 mg PO QAM JULIO CESAR Stop: 09/14/23 08:59 Last Admin: 08/15/23 09:01 Dose: 20 mg Clopidogrel Bisulfate (Clopidogrel Bisulfate 75 Mg Tab) 75 mg PO PM JULIO CESAR Stop: 09/13/23 20:59 Last Admin: 08/14/23 20:18 Dose: 75 mg Cyanocobalamin (Cyanocobalamin (B-12) 100 Mcg Tablet) 100 mcg PO DAILY JULIO CESAR Stop: 09/14/23 08:59 Last Admin: 08/15/23 09:01 Dose: 100 mcg Dextrose (Dextrose 50% 50 Ml Syringe) 25 - 50 ml IV UD PRN; Protocol PRN Reason: Hypoglycemia Protocol Stop: 09/13/23 18:35 Ferrous Sulfate (Ferrous Sulfate 325 Mg Tab) 325 mg PO DAILY JULIO CESAR Stop: 09/14/23 08:59 Last Admin: 08/15/23 09:01 Dose: 325 mg Folic Acid (Folic Acid 1 Mg Tab) 1 mg PO DAILY JULIO CESAR Stop: 09/14/23 08:59 Last Admin: 08/15/23 09:01 Dose: 1 mg Glucagon (Glucagon For Inj 1 Mg Vial) 1 mg SQ UD PRN; Protocol PRN Reason: Hypoglycemia Protocol Stop: 09/13/23 18:35 Glucose (Glucose 10 Tab/Tube) 4 - 8 tab PO UD PRN; Protocol PRN Reason: Hypoglycemia Treatment Stop: 09/13/23 18:35 Glucose (Glucose 40% Gel 15 Gm Tube) 15 - 30 gm PO UD PRN; Protocol PRN Reason: Hypoglycemia Protocol Stop: 09/13/23 18:35 Insulin Aspart (Insulin Aspart Per Unit Charge) 0 units SC ACHS [facility] Stop: 09/13/23 20:59 Last Admin: 08/15/23 09:03 Dose: Not Given Levalbuterol HCl (Levalbuterol Tartrate 15 Gm Hfa.Aer.Ad) 1 puffs INH Q4R PRN PRN Reason: Shortness Of Breath Stop: 09/13/23 18:35 Levothyroxine Sodium (Levothyroxine Sodium 125 Mcg Tablet) 125 mcg PO DAILYBB [facility] Stop: 09/14/23 06:29 Last Admin: 08/15/23 06:14 Dose: 125 mcg Lorazepam (Lorazepam 1 Mg Tab) 1 mg PO HS PRN PRN Reason: sleep/anxiety Stop: 09/13/23 18:35 Last Admin: 08/14/23 20:22 Dose: 1 mg Magnesium Hydroxide (Magnesium Hydroxide Susp 30 Ml Udc) 30 ml PO Q12H PRN PRN Reason: Constipation Stop: 09/13/23 18:35 Miscellaneous (Order Awaiting Action: Ipratropium Nasal) 1 each N/A QS [facility] [facility] Stop: 09/14/23 00:00 Last Admin: 08/15/23 09:03 Dose: Not Given Miscellaneous (Carbohydrates For Hypoglycemia ) 15 - 30 gm PO UD PRN PRN Reason: Hypoglycemia Protocol Stop: 09/13/23 18:35 Miscellaneous Information (Pharmacist Discharge Med Rec Consult) 1 each N/A UD PRN PRN Reason: Consult Stop: 09/13/23 18:35 Montelukast Sodium (Montelukast Sodium 10 Mg Tablet) 10 mg PO PM [facility] Stop: 09/13/23 20:59 Last Admin: 08/14/23 20:17 Dose: 10 mg Ondansetron HCl (Ondansetron Inj 2 Mg/Ml 2 Ml Vial) 4 mg IV Q6H PRN PRN Reason: Nausea Stop: 09/13/23 18:35 Pantoprazole Sodium (Pantoprazole 40 Mg Tab) 40 mg PO BID [facility] Stop: 09/13/23 20:59 Last Admin: 08/15/23 09:01 Dose: 40 mg Polyethylene Glycol (Polyethylene (Miralax) 17 Gm Pack) 17 gm PO DAILY PRN PRN Reason: Constipation Stop: 09/13/23 18:35 Sertraline HCl (Sertraline Hcl 100 Mg Tablet) 100 mg PO DAILY [facility] Stop: 09/14/23 08:59 Last Admin: 08/15/23 09:01 Dose: 100 mg Sotalol HCl (Sotalol Hcl 80 Mg Tab) 40 mg PO BID [facility] Stop: 09/13/23 19:59 Last Admin: 08/15/23 09:02 Dose: 40 mg Torsemide (Torsemide 10 Mg Tab) 20 mg PO QAM [facility] Stop: 09/14/23 08:59 Last Admin: 08/15/23 09:01 Dose: 20 mg Torsemide (Torsemide 10 Mg Tab) 10 mg PO MoWe@1400 [facility] Stop: 09/17/23 13:59 Umeclidinium/Vilanterol (Umeclidinium/Vilanterol 62.5/25mcg 7 Puffs/Inhaler) 1 [facility] Protocol Stop: 09/14/23 08:59 Last Admin: 08/15/23 09:03 Dose: 1 puffs Vitamin D (Cholecalciferol 1,000 Units 25 Mcg Tab) 4,000 units PO QAM [facility] Stop: 09/14/23 08:59 Last Admin: 08/15/23 09:02 Dose: 4,000 units (5) CKD (chronic kidney disease) Chronic kidney disease stage: stage 3 (moderate)
--- NOTE | 2023-08-15 11:43 | Neurology Consultation ---
Date of Consultation August 15, 2023 Assessment & Plan (1) TIA (transient ischemic attack): possible TIA vs a hemodynamic event , with neurological symptoms The patient is currently optimized for stroke prevention with aspirin and plavix Plan Continue aspirin and plavix for stroke prevention Continue atorvastatin metabolic optimization per primary team. No further recommendations form neurology, will sign off Telehealth Consultation Telehealth Information Telehealth Information: I performed this visit using a real-time telehealth connection between my location and the patients location ([facility]). After connecting through interactive tele-video, patient was identified by name and date of and/or wristband check.Patient (or authorized healthcare patient relations representative) was informed that this was a telemedicine visit and it was being conducted confidentially over secure lines. My office door was closed and no one else was present in the room with me.Patient (or authorized healthcare patient relations representative) provided consent to proceed with the visit, expressed an understanding of privacy and security of the telemedicine visit, and gave permission to have a hospital patient relations representative in the room in order to assist with the visit and to conduct portions of the visit, as needed. I informed the patient (or authorized healthcare patient relations representative) that I reviewed their record and presented the opportunity for them to ask any questions regarding the visit today. The patient agreed to participate. History of Present Illness Reason for Consultation: Stroke Requesting Physician: Preston Wilkinson MD Attending Physician: Ashley Wilkinson MD History of Present Illness Inga Villavicencio is an 83 Y.O female patient with a PMH of atrial fibrillation , sigmoid septum s/p watchman procedure, hx of TIAs , strokes, prior hx of poor tolerance to Eliquis hence the watchman procedure, maintained on plavix. The patient presents with transient dysarthria . The daughter tells me that she woke up the day before yesterday with some chest discomfort, shortness of breath and difficulty with speech , which lasted about half an hour and resolved . She has been doing good since then , remains on aspirin and plavix. denies any current neurological deficits Allergies Allergy/AdvReac Type Severity Reaction Status Date / Time Sulfa (Sulfonamide Allergy Severe Severe Verified 12/06/22 16:15 Antibiotics) rxn: rash and hives celecoxib Allergy Intermediate Rash/Hives/ Verified 12/06/22 16:15 Itching. cephalexin Allergy Intermediate Rash/Hives/ Verified 12/06/22 16:15 Itching. furosemide Allergy Intermediate Rash/Hives/ Verified 12/06/22 16:15 Itching. gabapentin Allergy Intermediate Rash/Hives/ Verified 12/06/22 16:15 Itching. pregabalin Allergy Intermediate Rash/Hives/ Verified 12/06/22 16:15 Itching. meclizine Allergy Unknown Unknown Verified 12/06/22 16:15 methylprednisolone Allergy Unknown Rash/Hives/ Verified 12/06/22 16:15 Itching. Penicillins Allergy Unknown Unknown. Verified 12/06/22 16:15 prednisone Allergy Unknown Rash/Hives/ Verified 12/06/22 16:15 Itching. vancomycin Allergy Unknown Jodi Verified 12/06/22 16:15 syn. . nickel Allergy Unknown Verified 12/06/22 16:15 dexamethasone AdvReac Intermediate Steroid Verified 12/06/22 16:15 psychosis. Home Medications Medication Instructions Recorded Confirmed Type montelukast 10 mg tablet 10 mg PO PM 04/08/19 08/14/23 History ferrous sulfate 325 mg (65 mg 325 mg PO DAILY 06/03/20 08/14/23 History iron) tablet atorvastatin 20 mg tablet 20 mg PO QAM 11/26/21 08/14/23 History cholecalciferol (vitamin D3) 50 100 mcg PO QAM 11/26/21 08/14/23 History mcg (2,000 unit) capsule (Vitamin D3) aspirin 81 mg tablet,delayed 81 mg PO HS 01/04/22 08/14/23 History release levalbuterol tartrate 45 1 puff inhalation Q4 PRN Shortness 08/07/22 08/14/23 History mcg/actuation aerosol inhaler Of Breath (Xopenex HFA) sertraline 100 mg tablet 100 mg PO DAILY 08/07/22 08/14/23 History sotalol 80 mg tablet 40 mg PO AMPM 08/07/22 08/14/23 History cyanocobalamin (vitamin B-12) 100 100 mcg PO DAILY 11/07/22 08/14/23 History mcg tablet (Vitamin B-12) folic acid 1 mg tablet 1 mg PO DAILY 11/07/22 08/14/23 History tiotropium 2.5 mcg-olodaterol 2.5 2 puff inhalation QAM 11/07/22 08/14/23 History mcg/actuation mist for inhalation (Stiolto Respimat) torsemide 10 mg tablet 20 mg PO QAM 11/07/22 08/14/23 History levothyroxine 125 mcg capsule 125 mcg PO DAILY #30 caps 11/13/22 08/14/23 Rx ipratropium bromide 21 mcg (0.03 2 spray intranasal DAILY 12/06/22 08/14/23 History %) nasal spray pantoprazole 40 mg tablet,delayed 40 mg PO BID #60 tabs 12/09/22 08/14/23 Rx release allopurinol 300 mg tablet 300 mg PO HS 08/14/23 08/14/23 History clopidogrel 75 mg tablet 75 mg PO PM 08/14/23 08/14/23 History lorazepam 1 mg tablet 1 mg PO HS PRN sleep/anxiety 08/14/23 08/14/23 History Patient History Medical History SSS (sick sinus syndrome) Chronic diastolic (congestive) heart failure TIA (transient ischemic attack) Nausea Leukocytosis Near syncope Hypotension Dehydration TIFFANY (acute kidney injury) Near syncope Elevated brain natriuretic peptide (BNP) level Pneumonia Atrial flutter Carotid artery aneurysm Prolonged QT interval Atrial fibrillation with RVR DM type 2 (diabetes mellitus, type 2) History of tobacco abuse Encounter for pre-operative examination Cholelithiasis Cholecystitis Chest pain at rest Pulmonary emphysema Osteoarthritis of right knee HTN (hypertension) RADHA (obstructive sleep apnea) Atrial fibrillation and flutter CKD (chronic kidney disease), stage III Meniere disease Depression Hypothyroidism Asthma, moderate persistent Surgical History History of hysterectomy History of cholecystectomy History of repair of left rotator cuff Hx of neck surgery H/O sinus surgery History of laminectomy Family History Father Diabetes Social History Smoking Status: Former smoker Tobacco Type: Cigarettes packs per day: 1.5; Cigarettes Per Day: 30; Smoking End Date: 47 years ago; Second Hand Exposure: No; Do You Dip or Chew Tobacco: No; Hx Alcohol Use: No Hx Substance Use: No Preferred Language: Ukrainian Communication Ability: Effective 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 Beliefs That Will Affect Care: None marital status: Current Living Situation: Spouse Other Information That Helps Us Care for You: No Feels Safe at Home: Yes Safety Concerns: Feels Safe At This Time Assistive Devices: Glasses, Hearing Aid - Right, Oxygen - at Night and Walker Review of Systems Constitutional: Patient denies weight loss, fever, chills, and night sweats Eyes: Patient denies change in vision, tearing, pain, and redness ENT: Patient denies pain, bleeding, rhinorrhea, and dysphagia Cardiovascular: Patient denies chest pain, palpitation, dyspnea at rest, and dyspnea with exertion Respiratory: Patient denies shortness of breath, cough, wheezing, and productive cough GI: Patient denies reflux, pain, constipation, and diarrhea Skin: Patient denies rash, dryness, and itching Allergies/Immune System: Patient denies rhinorrhea, seasonal allergies, reaction to current MEDS, and joint swelling Endocrine: Patient denies weight loss, weight gain, temperature intolerance, and excessive thirst Neurological: All negative unless mentioned in the HPI Physical Exam General NEUROLOGIC EXAMINATION: Mental Status:alert, oriented to time, place, person, normal recent memory, normal remote memory, normal attention span, normal concentration, normal l anguage and normal fund of knowledge Cranial Nerves: CN 2 - no visual defect on confrontation and pupils round, equal, reactive to light CN 3, 4, 6 - extra-ocular movements intact and no nystagmus CN 5 - facial sensation intact CN 7 - no facial asymmetry CN 8 - intact hearing CN 9, 10 - palate symmetric, normal gag CN 11 - good shoulder shrug CN 12 - tongue midline MOTOR: Strength was at least antigravity throughout, Pronator drift was absent and There were no abnormal movements SENSATION: intact and symmetric to pinprick, light touch, vibration and joint position GAIT: stable, no ataxia and can perform tandem walking COORDINATION: no ataxia with finger to nose testing and heel to little testing REFLEXES: cannot assess over telemedicine Results & Data Vital Signs (Past 12 Hours) Vital Signs Temp Pulse Pulse Resp BP Pulse Ox O2 Del Method 08/15/23 10:26 36.2 C L 60 18 113/65 94 Room Air 08/15/23 07:36 36.7 C 66 18 111/63 95 Room Air 08/15/23 03:51 36.5 C 70 18 111/61 93 Room Air 08/15/23 00:24 61 Laboratory Results Laboratory Results - last 24 hr 08/14/23 08/14/23 08/14/23 14:50 15:07 18:46 WBC 9.64 RBC 3.16 L Hgb 9.6 L POC Hgb 9.5 L Hct 29.4 L POC Hct 28 L MCV 93.0 MCH 30.4 MCHC 32.7 RDW Std Deviation 55.6 H RDW Coeff of Francisco Javier 16.3 H Plt Count 233 MPV 11.2 Immature Gran % (Auto) 0.4 Neut % (Auto) 70.4 Lymph % (Auto) 13.1 [place] % (Auto) 7.5 Eos % (Auto) 7.9 Baso % (Auto) 0.7 Neut # (Auto) 6.79 H Lymph # (Auto) 1.26 [place] # (Auto) 0.72 H Eos # (Auto) 0.76 H Baso # (Auto) 0.07 Immature Gran # (Auto) 0.04 PT 10.9 INR 1.0 APTT 27 PTT Ratio 1.0 POC Sodium 139 Sodium 138 POC Potassium 4.5 Potassium 4.4 POC Chloride 107 Chloride 105 Carbon Dioxide 24 POC Total CO2 22 L Anion Gap 9 POC Anion Gap 15.0 L POC BUN 50 H BUN 55 H Creatinine 1.92 H POC Creatinine 2.0 H Est Cr Clr Drug Dosing 22.8 Est GFR ( Amer) 27.6 Est GFR (Non-Af Amer) 23.8 BUN/Creatinine Ratio 28.6 H Glucose 153 H POC Glucose 109 H POC Glucose (other) 140 H Estimat Average Glucose Hemoglobin A1c Calcium 9.4 POC Ioniz Calcium Savage 1.20 Magnesium 2.4 Total Bilirubin 0.5 AST 48 H ALT 25 Alkaline Phosphatase 176 H Troponin I High Sens 9.9 Total Protein 7.3 Albumin 4.3 Globulin 3.0 Albumin/Globulin Ratio 1.4 Triglycerides Cholesterol LDL Cholesterol, Calc VLDL Cholesterol, Calc HDL Cholesterol Cholesterol/HDL Ratio 08/14/23 08/15/23 08/15/23 20:36 07:04 08:16 WBC 7.88 RBC 2.92 L Hgb 8.8 L POC Hgb Hct 27.5 L POC Hct MCV 94.2 MCH 30.1 MCHC 32.0 RDW Std Deviation 55.9 H RDW Coeff of Francisco Javier 16.3 H Plt Count 198 MPV 10.7 Immature Gran % (Auto) 0.4 Neut % (Auto) 68.6 Lymph % (Auto) 12.2 [place] % (Auto) 8.5 Eos % (Auto) 9.4 Baso % (Auto) 0.9 Neut # (Auto) 5.41 Lymph # (Auto) 0.96 L [place] # (Auto) 0.67 H Eos # (Auto) 0.74 H Baso # (Auto) 0.07 Immature Gran # (Auto) 0.03 PT INR APTT PTT Ratio POC Sodium Sodium 136 POC Potassium Potassium 4.3 POC Chloride Chloride 103 Carbon Dioxide 25 POC Total CO2 Anion Gap 8 POC Anion Gap POC BUN BUN 48 H Creatinine 1.93 H POC Creatinine Est Cr Clr Drug Dosing 22.0 Est GFR ( Amer) 27.2 Est GFR (Non-Af Amer) 23.5 BUN/Creatinine Ratio 24.9 H Glucose 145 H POC Glucose 137 H 124 H POC Glucose (other) Estimat Average Glucose 148 Hemoglobin A1c 6.8 H Calcium 9.2 POC Ioniz Calcium Savage Magnesium Total Bilirubin AST ALT Alkaline Phosphatase Troponin I High Sens Total Protein Albumin Globulin Albumin/Globulin Ratio Triglycerides 112 Cholesterol 129 LDL Cholesterol, Calc 49 VLDL Cholesterol, Calc 22 HDL Cholesterol 58 Cholesterol/HDL Ratio 2.2 08/15/23 12:15 WBC RBC Hgb POC Hgb Hct POC Hct MCV MCH MCHC RDW Std Deviation RDW Coeff of Francisco Javier Plt Count MPV Immature Gran % (Auto) Neut % (Auto) Lymph % (Auto) [place] % (Auto) Eos % (Auto) Baso % (Auto) Neut # (Auto) Lymph # (Auto) [place] # (Auto) Eos # (Auto) Baso # (Auto) Immature Gran # (Auto) PT INR APTT PTT Ratio POC Sodium Sodium POC Potassium Potassium POC Chloride Chloride Carbon Dioxide POC Total CO2 Anion Gap POC Anion Gap POC BUN BUN Creatinine POC Creatinine Est Cr Clr Drug Dosing Est GFR ( Amer) Est GFR (Non-Af Amer) BUN/Creatinine Ratio Glucose POC Glucose 128 H POC Glucose (other) Estimat Average Glucose Hemoglobin A1c Calcium POC Ioniz Calcium Savage Magnesium Total Bilirubin AST ALT Alkaline Phosphatase Troponin I High Sens Total Protein Albumin Globulin Albumin/Globulin Ratio Triglycerides Cholesterol LDL Cholesterol, Calc VLDL Cholesterol, Calc HDL Cholesterol Cholesterol/HDL Ratio Diagnostic Findings Head CT 08/14/23 14:58 CT OF THE HEAD WITHOUT CONTRAST CLINICAL HISTORY: neuro deficit, acute stroke suspected COMPARISON STUDY: MRI of the brain and head CT November 07, 2022. TECHNIQUE: Helical axial images of the head were obtained without IV contrast. Automated exposure control was utilized for the study. A dose lowering technique was utilized adhering to the principles of ALARA. FINDINGS: No acute intracranial hemorrhage, midline shift or mass effect is present. The ventricular system is stable. White matter hypodensities are unchanged and favor small vessel disease. The basal cisterns are patent. No extra-axial collections are present. There are no findings to suggest acute dural sinus thrombosis or acute territorial infarct. No significant calvarial abnormalities are present. Extensive sinus opacification is noted. This has progressed since exam of November 07, 2022. IMPRESSION: 1. No acute intracranial findings. No change in appearance of the brain. 2. Progression of extensive sinus opacification. ACT 112: Negative or not required by law. Electronically signed by: Otoniel Lemus M.D. 08/14/2023 3:33 PM Head CTA 08/14/23 14:58 CT angio head w con CLINICAL HISTORY: neuro deficit, acute stroke suspected TECHNIQUE: CT angiography of the head was performed following intravenous administration of iodinated contrast. Coronal and sagittal MIPS were obtained from the axial data set and were submitted for review. Automated dose lowering techniques and/or adjustment according to patient size were utilized for this examination. All measurements were calculated based on NASCET criteria. CT DOSE: 908.62 mGy.cm Comparison: None available at the time of this dictation. FINDINGS: CTA Head: The anterior and posterior cerebral circulations are patent. No hemodynamically significant stenosis, aneurysm, dissection, or arteriovenous malformation is shown. IMPRESSION: 1. No occlusion, hemodynamically significant stenosis, aneurysm, dissection, or arteriovenous malformation in the major intracranial arteries. Assessment of stenosis of the internal carotid arteries is based on NASCET criteria. ACT 112: Negative or not required by law. Electronically signed by: Christian Murray M.D. 08/14/2023 3:39 PM Neck CTA 08/14/23 14:58 CT ANGIOGRAPHY OF THE NECK WITH CONTRAST CLINICAL HISTORY: neuro deficit, acute stroke suspected COMPARISON STUDY: CTA of the neck November 07, 2022. Technique: CT angiography of the carotid and vertebral arteries was obtained using [employer] and 3D reconstruction on an independent workstation. NASCET criteria was utilized. Automated exposure control was utilized for the study. A dose lowering technique was utilized adhering to the principles of ALARA. Findings: Postoperative findings within the cervical spine are unchanged. There is no cervical lymphadenopathy. No cervical spine fractures are present. The bilateral common carotid, cervical internal carotid and vertebral arteries are patent. There is minimal noncalcified plaque within the proximal right internal carotid artery without stenosis. There is minimal plaque within the left carotid bifurcation without stenosis. There is no dissection or aneurysm within the major vessels of the neck. IMPRESSION: No stenosis or dissection within the bilateral common carotid, cervical internal carotid or vertebral arteries. ACT 112: Negative or not required by law. Electronically signed by: Otoniel Lemus M.D. 08/14/2023 3:40 PM
--- OUTSIDE RECORDS SUMMARY | 2023-08-15 12:33 | External Medical Summary | Summary of Care ---
Author Name Unknown Organization [facility] Address [address] [place] [address] Phone [phone] Care Team Providers Care Nursing Staff Development Coordinator Name Role Phone Florentin Calvo DO Primary Care Provider Reason for Visit * Reason Onset Date Comments Advice 08/14/2023 Encounter Details Date Type Department Care Team (Late st Contact Info) Description 08/14/2023 Telephone Family Practice [address] [facility], [place] [address] [place] [address] Florentin Calvo DO [address] [place] [address] Advice Allergies Active Allergy Reactions Criticality Noted Date Comments Azithromycin Other (Please comment) 12/04/2021 QTC prolongation at [facility] Celecoxib Hives,Rash High 03/24/2013 Other [...] as of this encounter (statuses as of 08/14/2023) Medications Medication Sig Dispensed Refills Start Date End Date Status EasyQasaTouch Verio w/Device KitIndications:Type 2 diabetes mellitus with hemoglobin A1c goal of less than 7.0% ([facility]) Use up to 1 times [...] (Lipitor)Indication s:PVD (peripheral vascular disease) ([facility]),Type 2 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 90 Tablet 3 05/16/2023 Active Tiotropium [place]-Olodaterol 2.5-2.5 MCG/ACT Inhalation Aerosol Solution (Stiolto Respimat) [...] as of this encounter (statuses as of 08/14/2023) Active Problems Problem Noted Date Diagnosed Date Presence of Watchman left atrial appendage closu re device 07/31/2023 S/P mitral valve clip implantation 03/06/2023 Atherosclerosis of [place] 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 02/13/2023 Last Assessment & Plan: Continue statin, sotalol. 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 Last Assessment & Plan: Now just [...] as of this encounter (statuses as of 08/14/2023) Resolved Problems Problem Noted Date Diagnosed Date [...] as of this encounter (statuses as of 08/14/2023) Immunizations Name Administration Dates Next Due COVID-19 mRNA, LNP-s, No Pre serve, 2-Dose Series (Moderna) 06/23/2021,10/25/2020,09/28/2020 COVID-19, LNP-s, No Preserve , Larry-sucrose, Ages 12+ (Pfizer) 04/09/2022 COVID-19, MRNA-LNP, 23-24, P F, 30 MCG/0.3 mL, 12 YRS AND ABOVE, IM ([employer] [facility] 06/09/2023 Covid-19, Mrna, Lnp-s, Pf, B ivalent, 30 Mcg, IM, 12 yrs and above ([employer]) 09/10/2022 HEP A - Hepatitis A (Adult [...] Miscellaneous Notes * Telephone Encounter - Hilda Elizabeth RN - 08/14/2023 1:20 PM EST Pt calling in-states woke up in the middle of the night-"felt like I was having a stroke". Wasn't able to talk and her couldn't understand her-he said that lasted about 1 1/2 min. Pt states she isn't sure how long-just until she was able to fall back asleep. States just felt "really weird" She woke up around 11 AM. Talking ok, denies any weakness in arms/legs. Walking like normal with herwalker. Eating and drinking. No visual difficulties. Spoke with Dr Calvo-states she should be evaluated in ER to r/o stroke or TIA. Pt notified and agreeable. Declines calling 911-son is there and he will take her to the ER. documented in this encounter Plan of Treatment Upcoming Encounters Date Type Department Care Team (Late st Contact Info) Description 08/19/2023 10:00 AM EST Office Visit Family Practice [address] [place] [address] [address] [place] [address] Florentin Calvo, [address] [place] [address] 09/02/2023 2:30 PM EST Home Visit [facility] [address] [facility] [place] [address] Michelle Hurt RN [address] [facility] [place] [address] 09/11/2023 3:30 PM EST Office Visit Cardiology, [facility] [address] [facility] [place] [address] Stephen Hewitt, [address] [facility] [place] [address] 09/15/2023 8:00 AM EST Appointment Cardiac Studies [facility] [place] [address] [place] [address] 10/14/2023 2:30 PM EST Office Visit Hematology/Oncology [facility] [address] [place] [address] Nereyda Metz CRNP [address] [facility] [place] [address] 10/24/2023 2:30 PM EST Office Visit Gynecology/Oncology, [place] [address] [place] [address] Vanessa Elena PA-C [address], [place] [id number] 01/21/2024 2:40 PM EDT Office Visit Otolaryngology [facility] [address] [place] [address] Cheri Castillo PA-C [address] [place] [address] 02/17/2024 3:30 PM EDT Office Visit Nephrology, [facility] [address] [facility] [address] ZeMichelle chiu PA-C [address] [facility] [address] 06/03/2024 2:15 PM EDT Office Visit Ophthalmology, [facility] [address] [place] [address] Wilbur Benavides, [address] [place] [address] 08/09/2024 1:00 PM EST Nurse Only Ancillary [address] [place] [address] [address] [place] [address] College, Nurse Annual Wellness Visit [address], [place] [id number] Health Maintenance Due Date Last Done Comments Hepatitis B (1 of 3 - Risk 3-dose series) 2000 CKD PHOS USE SMARTSET 40149 05/01/20230 02/2022, 04/03/2022, 12/05/2020, Additional history exists HbA1c 08/23/2023 02/21/2023, /0 10/2022, 04/03/2022, Additional history exists TSH 09/24/2023 09/24/2022, 0 10/2022, 02/12/2022, Additional history exists Diabetic Foot Exam 10/01/2023 10/01/2022, 0 10/26/2021, 12/05/2020, Additional history exists GFR 02/12/2024 08/13/2023, 02/2023, 07/03/2023, Additional history exists Albumin/Creatinine Ratio 02/22/2024 023, 05/01/2022, 10/26/2021, Additional history exists Diabetic Eye Exam 05/22/2024 05/22/2023, , 05/22/2023, Additional history exists Depression Screening 05/23/2024 05/23/2023 CKD HGB USE SMARTSET 91604 08/13/202408/13, 07/31/2023, 07/31/2023, Additional history exists DXA Scan [...] encounter Medical Devices Implanted Type Area Manager Wound Care Device Identifier Shelf Expiration Date Model / Serial / Lot Cath Thermodilution 6fr - [id number] Implanted:Qty: 1 on 01/24/2023 by Wilbur Rivera MD at [facility] [employer] [id number] 10/15/2024 [id number] / / [id number] Mirtaclip G4 - [id number] Implanted:Qty: 1 on 03/10/2023 at [facility] [employer] 11/19/2023 [id number] / / [id number] Device Watchman Flx 31mm - [id number] Implanted:Qty: 1 on 07/31/2023 by Wilbur Rivera MD at [facility] [employer] : INTRV CARD [id number] 12/02/2025 [id number] / [id number] documented as of this encounter Advance Directives Documents on File Type Date Recorded 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 No Code Status History Code Status [...] Agents on File Name Relationship [facility] (per Health Care Power of Mash Tub Cooker Operator document) Care Teams Nursing Staff Development Coordinator Relationship Specialty Start Date End Date Florentin Calvo DO [address] [place] [address] PCP - General Internal Medicine 03/24/13 documented as of this encounter
--- NOTE | 2023-08-15 14:06 | Magnetic Resonance Report ---
MRI OF THE BRAIN WITHOUT CONTRAST CLINICAL HISTORY: Transient ischemic attack. Slurred speech. COMPARISON STUDY: MRI of the brain November 07, 2022. Head CT and CTA of the head August 14, 2023. TECHNIQUE: Utilizing a 1.5 Zoila magnet and dedicated coil, multiplanar, multiecho imaging of the bra in was performed without IV contrast. FINDINGS: There are no foci of restricted diffusion to suggest acute infarct. No acute intracranial h emorrhage, midline shift or mass effect is present. Ventricular system is unremarkable. Basal cistern s are patent. There are no extra-axial collections. Flow-voids for the major intracranial vessels are present. No intracranial masses identified on unenhanced exam. White matter T2 hyperintense foci are similar to previous study. Extensive sinus opacification has slightly progressed since MRI of November 07, 2022. IMPRESSION: 1. No acute intracranial findings. 2. Mild progression of extensive sinus opacification since previous MRI. ACT 112: Negative or not required by law. Electronically signed by: Otoniel Lemus M.D. 08/15/2023 2:05 PM
--- NOTE | 2023-08-15 15:23 | Hospitalist Progress Note ---
Date of Service August 15, 2023 Assessment & Plan (1) TIA (transient ischemic attack): (2) Paroxysmal atrial fibrillation: (3) Chronic diastolic (congestive) heart failure: (4) CKD (chronic kidney disease): (5) Anemia: (6) Cardiac pacemaker in situ: (7) CAD (coronary artery disease): Plan This is a 82-year-old female who has a significant past medical history of CAD, history of PAF, presence of Watchman device, chronic diastolic CHF, cardiac pacemaker in situ, severe tricuspid regurg, pulm hypertension, history of mitral valve clip implantation, 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 TIA - slurred speech for ~ 30 minutes over night hx of TIA admit to pcu for further work up MRI brain consult neurology echo to eval for PFO tele monitoring pacer interrogation for afib a1c, lipid panel in a.m. PT/OT/ST currently on ASA, Plavix 2/2 watchmen device, also on statin therapy PAF Watchmen device procedure 07/[address] Rivera Cardiac pacemaker insitu 2/2 SSS not on AC due to severe GIB in past continue sotalol Chronic HFpEF 2/2 MV insufficiency s/p mitraclip 03/06/23 doing well daily weights, I and O continue torsemide CKD-3b follows Dr. Green bun/cr 55 and 1.92 recently seen on 08/13 and recommendation was to take additional 10mg of torsemide twice weekly on top of 20mg daily dosing baseline cr 1.9 T2DM diet controlled, last a1c 6.9 obtain a1c in a.m. novolog per protocol, liberal coverage in setting of age RADHA O2 at HS HLD chronic,stable continue statin DVT ppx: SCDs, on asa, plavix, hx of severe GIB in past DNR/DNI PCP: Dr. Calvo Dispo: admit for TIA w/u, likely discharge tomorrow Pt was seen and examined in collaboration with Dr. Gibbs, please see addendum A total of 82 minutes was spent coordinating, documenting, and providing care for this patient excluding time spent in the performance of separately billed services. This included personally viewing all current laboratories and imaging studies, medication reconciliation, outpatient chart review, and discussion with specialists. Admission and Anticipated Discharge Date Admission Date: August 14, 2023 Results & Data Results & Data Vital Signs (Past 12 Hours) Vital Signs Temp Pulse Resp BP Pulse Ox O2 Del Method 08/15/23 14:45 36.5 C 61 19 124/54 L 95 Room Air 08/15/23 10:26 36.2 C L 60 18 113/65 94 Room Air 08/15/23 07:36 36.7 C 66 18 111/63 95 Room Air 08/15/23 03:51 36.5 C 70 18 111/61 93 Room Air (4) CKD (chronic kidney disease) Chronic kidney disease stage: stage 3 (moderate)
--- NOTE | 2023-08-15 17:16 | Discharge Summary ---
Discharge Summary Date of Service August 15, 2023 Notes For Next Care Provider Continue home Plavix 75mg every 24 hours, atorvastatin, aspirin Continue home sotalol 40mg BID Consider ENT follow up for sinus opacification noted on head imaging Medication Changes From Visit Doxycycline 100mg BID x 10 days Admission HPI Per Admitting Provider This is a 82-year-old female who has a significant past medical history of CAD, history of PAF, presence of Watchman device, chronic diastolic CHF, cardiac pacemaker in situ, severe tricuspid regurg, pulm hypertension, history of mitral valve clip implantation, 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 Overnight she got up and had difficulty with speech and her couldn't understand her. Her has dementia and this is not abnormal, but she was able to notice that her speech was slurred. She feels this lasted approx 30 minutes. This has never happened before. She has hx of TIA in past, but does not recall what happened at that time. Son at bedside felt like she may have had facial droop. She denied any unilateral weakness, difficulty swallowing or facial droop at this time. Currently her symptoms have resolved. She denies any fever, chills, sweats, lightheadedness, dizziness, chest pain, shortness with, nausea, vomiting, abdominal pain, change in bowel or urinary habits. Of significance earlier this month she underwent a Watchman device placement for her paroxysmal atrial fibrillation. She tolerated the procedure well. Earlier this year she also had a mitral valve clip implantation which significantly helped her heart failure. In ED patient remained hemodynamically stable. Notable lab abnormalities include H&H 9.6 and 29.4, BUN 55 and creatinine 1.92, glucose 153, AST 48 and alk phos 176. She underwent head CT which was negative for any acute intracranial findings. Head and neck CTA was negative for occlusion, stenosis or dissection. Son is at bedside who helps elicit hx. Admission Exam Per Admitting Provider Constitutional: WD/WN, vitals as above, NAD, sitting up in bed, pleasant, conversing easily Head: Normocephalic, Atraumatic Eyes: PERRL, conjunctivae normal, anicteric sclerae ENMT: external ear and nose normal, oropharynx normal Neck: trachea midline, no thyromegaly normal visual inspection Respiratory: normal respiratory effort, lungs clear to auscultation, no wheeze, rales, rhonchi. Normal insp/exp effort, no accessory muscle use Cardiovascular: normal s1/s2, no murmur, trace edema Vessels: no JVD or carotid bruit Chest: normal inspection of chest Abdomen: normal bowel sounds, soft, nontender, no hepatosplenomegaly Musculoskeletal: no cyanosis or clubbing, arom x 4 Skin: no rashes, warm and dry normal turgor Neurologic: PERRL, EOMI, accommodation nl, no face palsy, no dysarthria CN's II-XI intact bilaterally and moves all extremities Psychiatric: A+Ox3, euthymic affect Lymphatic: no cervical or axillary lymphadenopathy : deferred Principal Dx & Hospital Course #1 = Principal Diagnosis (1) TIA (transient ischemic attack): (2) Paroxysmal atrial fibrillation: (3) Chronic diastolic (congestive) heart failure: (4) CKD (chronic kidney disease): (5) Anemia: (6) Cardiac pacemaker in situ: (7) CAD (coronary artery disease): Plan This is a 82-year-old female who has a significant past medical history of CAD, history of PAF, presence of Watchman device, chronic diastolic CHF, cardiac pacemaker in situ, severe tricuspid regurg, pulm hypertension, history of mitral valve clip implantation, 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 TIA slurred speech Chronic Sinusitis Pt had slurred speech for about 30 minutes that later resolved Head and neck CT and CTA without evidence of stroke, did note progression of extensive sinus opacification. MRI brain -no acute changes but did note further extension of opacification in sinuses Echo-no shunt pacer interrogation for afib hgba1c of 6.8, lipid panel wnl PT/OT/ST- no acute changes Currently on ASA, Plavix 2/2 watchmen device, also on statin therapy Neurology consult -continue with Plavix 75mg q24 dosing, current atorvastatin 20mg and aspirin 81mg Discharged with doxycycline 100mg BID x 10 days for sinusitis noted, please consider ENT follow up given chronicity of findings (previously noted in October 2022) and extension on imaging this admission. PCP follow up PAF Watchmen device procedure 07/[address] Rivera Cardiac pacemaker insitu 2/2 SSS not on AC due to severe GIB in past Cardiology consult -concern about sotalol dosing in setting of kidney disease - per cardiology, continue sotalol at 40mg BID. 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 Green bun/cr 55 and 1.92 recently seen on 08/13 and recommendation was to take additional 10mg of torsemide twice weekly on top of 20mg daily dosing baseline cr 1.9 T2DM diet controlled, last a1c 6.9 hgba1c of 6.8 novolog per protocol, liberal coverage in setting of age Resume diet control on discharge RADHA O2 at HS HLD chronic,stable continue statin Discharge Exam General: Alert, oriented. No acute distress Skin: No noted rashes or bruises Psych: Appropriate mood and affect Neuro: No gross deficits HEENT: NC/AT Chest: Nontender to palpation. CV: RRR Resp: Breath sounds clear bilaterally, no increased effort of breathing. Abdomen: Soft, nontender, nondistended. Extremities: No edema in lower extremities bilaterally. Updated Medication List Medication Instructions Recorded Confirmed Type montelukast 10 mg tablet 10 mg PO PM 04/08/19 08/14/23 History ferrous sulfate 325 mg (65 mg 325 mg PO DAILY 06/03/20 08/14/23 History iron) tablet atorvastatin 20 mg tablet 20 mg PO QAM 11/26/21 08/14/23 History cholecalciferol (vitamin D3) 50 100 mcg PO QAM 11/26/21 08/14/23 History mcg (2,000 unit) capsule (Vitamin D3) aspirin 81 mg tablet,delayed 81 mg PO HS 01/04/22 08/14/23 History release levalbuterol tartrate 45 1 puff inhalation Q4 PRN Shortness 08/07/22 08/14/23 History mcg/actuation aerosol inhaler Of Breath (Xopenex HFA) sertraline 100 mg tablet 100 mg PO DAILY 08/07/22 08/14/23 History sotalol 80 mg tablet 40 mg PO AMPM 08/07/22 08/14/23 History cyanocobalamin (vitamin B-12) 100 100 mcg PO DAILY 11/07/22 08/14/23 History mcg tablet (Vitamin B-12) folic acid 1 mg tablet 1 mg PO DAILY 11/07/22 08/14/23 History tiotropium 2.5 mcg-olodaterol 2.5 2 puff inhalation QAM 11/07/22 08/14/23 History mcg/actuation mist for inhalation (Stiolto Respimat) torsemide 10 mg tablet 20 mg PO QAM 11/07/22 08/14/23 History levothyroxine 125 mcg capsule 125 mcg PO DAILY #30 caps 11/13/22 08/14/23 Rx ipratropium bromide 21 mcg (0.03 2 spray intranasal DAILY 12/06/22 08/14/23 History %) nasal spray pantoprazole 40 mg tablet,delayed 40 mg PO BID #60 tabs 12/09/22 08/14/23 Rx release allopurinol 300 mg tablet 300 mg PO HS 08/14/23 08/14/23 History clopidogrel 75 mg tablet 75 mg PO PM 08/14/23 08/14/23 History lorazepam 1 mg tablet 1 mg PO HS PRN sleep/anxiety 08/14/23 08/14/23 History doxycycline hyclate 100 mg tablet 100 mg PO BID 10 days #20 tabs 08/15/23 Rx Hospital Stay Data Consultations 08/14/23 16:13 ED Decision to Admit Stat 08/14/23 17:25 Consult Neurology Routine 08/15/23 08:56 Consult Cardiology Routine Diagnostic Imagining Performed 08/14/23 14:58 CT angio head w con Stat CT angio neck with con Stat CT head/brain wo con Stat 08/15/23 00:00 MR brain wo con Routine Head CT 08/14/23 14:58 CT OF THE HEAD WITHOUT CONTRAST CLINICAL HISTORY: neuro deficit, acute stroke suspected COMPARISON STUDY: MRI of the brain and head CT November 07, 2022. TECHNIQUE: Helical axial images of the head were obtained without IV contrast. Automated exposure control was utilized for the study. A dose lowering technique was utilized adhering to the principles of ALARA. FINDINGS: No acute intracranial hemorrhage, midline shift or mass effect is present. The ventricular system is stable. White matter hypodensities are uncha nged and favor small vessel disease. The basal cisterns are patent. No extra- axial collections are present. There are no findings to suggest acute dural sinus thrombosis or acute territorial infarct. No significant calvarial abnormalities are present. Extensive sinus opacification is noted. This has progressed since exam of November 07, 2022. IMPRESSION: 1. No acute intracranial findings. No change in appearance of the brain. 2. Progression of extensive sinus opacification. ACT 112: Negative or not required by law. Electronically signed by: Otoniel Lemus M.D. 08/14/2023 3:33 PM Head CTA 08/14/23 14:58 CT angio head w con CLINICAL HISTORY: neuro deficit, acute stroke suspected TECHNIQUE: CT angiography of the head was performed following intravenous administration of iodinated contrast. Coronal and sagittal MIPS were obtained from the axial data set and were submitted for review. Automated dose lowering techniques and/or adjustment according to patient size were utilized for this examination. All measurements were calculated based on NASCET criteria. CT DOSE: 908.62 mGy.cm Comparison: None available at the time of this dictation. FINDINGS: CTA Head: The anterior and posterior cerebral circulations are patent. No hemodynamically significant stenosis, aneurysm, dissection, or arteriovenous malformation is shown. IMPRESSION: 1. No occlusion, hemodynamically significant stenosis, aneurysm, dissection, or arteriovenous malformation in the major intracranial arteries. Assessment of stenosis of the internal carotid arteries is based on NASCET criteria. ACT 112: Negative or not required by law. Electronically signed by: Christian Murray M.D. 08/14/2023 3:39 PM Neck CTA 08/14/23 14:58 CT ANGIOGRAPHY OF THE NECK WITH CONTRAST CLINICAL HISTORY: neuro deficit, acute stroke suspected COMPARISON STUDY: CTA of the neck November 07, 2022. Technique: CT angiography of the carotid and vertebral arteries was obtained using Optir[employer] and 3D reconstruction on an independent workstation. NASCET criteria was utilized. Automated exposure control was utilized for the study. A dose lowering technique was utilized adhering to the principles of ALARA. Findings: Postoperative findings within the cervical spine are unchanged. There is no cervical lymphadenopathy. No cervical spine fractures are present. The bilateral common carotid, cervical internal carotid and vertebral arteries are patent. There is minimal noncalcified plaque within the proximal right internal carotid artery without stenosis. There is minimal plaque within the left carotid bifurcation without stenosis. There is no dissection or aneurysm within the major vessels of the neck. IMPRESSION: No stenosis or dissection within the bilateral common carotid, cervical internal carotid or vertebral arteries. ACT 112: Negative or not required by law. Electronically signed by: Otoniel Lemus M.D. 08/14/2023 3:40 PM Brain MRI 08/15/23 00:00 MRI OF THE BRAIN WITHOUT CONTRAST CLINICAL HISTORY: Transient ischemic attack. Slurred speech. COMPARISON STUDY: MRI of the brain November 07, 2022. Head CT and CTA of the head August 14, 2023. TECHNIQUE: Utilizing a 1.5 Zoila magnet and dedicated coil, multiplanar, multiecho imaging of the brain was performed without IV contrast. FINDINGS: There are no foci of restricted diffusion to suggest acute infarct. No acute intracranial hemorrhage, midline shift or mass effect is present. Ventricular system is unremarkable. Basal cisterns are patent. There are no extra-axial collections. Flow-voids for the major intracranial vessels are present. No intracranial masses identified on unenhanced exam. White matter T2 hyperintense foci are similar to previous study. Extensive sinus opacification has slightly progressed since MRI of November 07, 2022. IMPRESSION: 1. No acute intracranial findings. 2. Mild progression of extensive sinus opacification since previous MRI. ACT 112: Negative or not required by law. Electronically signed by: Otoniel Lemus M.D. 08/15/2023 2:05 PM Pending Results Patient Have Any Pending Studies at Discharge: No Discharge Instructions Given to Patient (Per Discharging Provider) Ms. Barakat, You were admitted out of concern that you had a stroke. The imaging of your head did not show a stroke. You were seen by Neurology and they recommend that you continue with your home plavix and aspirin, as well as your home statin medication. Your imaging did show a possible chronic sinus infection. Please follow up with your primary care provider about this. Also discharging you with a course of antibiotics doxycycline to help with that. You were also seen by Cardiology who recommended that you continue with your home dose of sotalol 40mg twice a day. Please keep close follow up with your primary care provider and Cardiology after discharge. Please do not hesitate to return to the emergency room should your symptoms worsen or return. It was truly a pleasure taking care of you while you were here. Total Time Total Time Spent Total Time Spent (In Minutes): > 30 minutes
--- NOTE | 2023-08-16 06:06 | Electrocardiogram Report ---
Test Reason : Blood Pressure : / mmHG Vent. Rate : 060 BPM Atrial Rate : 060 BPM P-R Int : 126 ms QRS Dur : 110 ms QT Int : 494 ms P-R-T Axes : 072 006 008 degrees QTc Int : 494 ms AV dual-paced rhythm Abnormal ECG When compared with ECG of 18-DEC-2022 19:21, Vent. rate has decreased BY 5 BPM Confirmed by Allan Paulino ([id number]) on 08/16/2023 6:06:00 AM Referred By: Confirmed By:Allan Paulino
--- NOTE | 2023-08-16 06:38 | Electrocardiogram Report ---
Test Reason : Blood Pressure : / mmHG Vent. Rate : 060 BPM Atrial Rate : 060 BPM P-R Int : 134 ms QRS Dur : 114 ms QT Int : 510 ms P-R-T Axes : 087 123 025 degrees QTc Int : 510 ms Poor data quality, interpretation may be adversely affected AV dual-paced rhythm Abnormal ECG When compared with ECG of 14-AUG-2023 14:55, No significant change was found Confirmed by Allan Paulino ([id number]) on 08/16/2023 6:38:07 AM Referred By: REFERRED SELF Confirmed By:Allan Paulino
[2023-08-18] MEDS ORDERED: TORSEMIDE 10 MG TAB PO SCH (14:00)
== END 2023-08-15 18:14 | disposition home or self-care (01) ==
LOC: ED 14:09 → 2S 14:09 → SUATTDRO 16:56 → 2S 18:09

== ENCOUNTER 2023-08-22 12:19 | Inpatient (IN) ==
--- NOTE | 2023-08-22 13:48 | XRay Report ---
XR chest 1V not portable HISTORY: 83 years-old Female Weakness acute weakness COMPARISON: 11/07/2022 TECHNIQUE: PA view of the chest FINDINGS: Cardiac silhouette is enlarged. There is a left subclavian pacer. Surgical clips project over the lef t heart border right upper quadrant. No pneumothorax, pleural effusion or airspace consolidation. Pul monary vascular congestion. Fusion hardware noted within the cervical spine. Cholecystectomy. Left at rial exclusion device. IMPRESSION: Cardiomegaly with pulmonary vascular congestion. ACT 112: Negative or not required by law. The above report was generated using voice recognition software. It may contain grammatical, syntax o r spelling errors. Electronically signed by: Talha Caballero M.D. 08/22/2023 1:47 PM
[2023-08-22 14:26] LABS: Basophils # (auto) 0.05 K/uL (0.00-0.20); Basophils % (auto) 0.5 %; Eosinophils # (auto) 0.46 K/uL (0.00-0.50); Eosinophils % (auto) 4.4 %; Hematocrit (blood only) 24.8 % (37.0-47.0); Hemoglobin 8.3 g/dl (12.0-16.0); Immature Granulocytes # (auto) 0.06 K/uL (0.01-0.20); Immature Granulocytes % (auto) 0.6 %; Lymphocytes % (auto) 15.1 %; Mean Corpuscular Hgb Conc 33.5 g/dL (32.0-36.0); Mean Corpuscular Volume 92.5 fL (80.0-100.0); Mean Platelet Volume 11.2 fL (9.4-12.4); Monocytes # (auto) 0.97 K/uL (0.11-0.59); Monocytes % (auto) 9.2 %; Neutrophils # (auto) 7.43 K/uL (1.40-6.50); Neutrophils % (auto) 70.2 %; Platelet Count 220 K/uL (130-400); RDW Coefficient of Variation 16.2 % (11.5-14.5); RDW Standard Deviation 54.9 fL (36.4-46.3); Red Blood Count 2.68 M/uL (4.20-5.40); White Blood Count 10.57 K/ul (4.8-10.8)
[2023-08-22 14:42] LABS: Alanine Aminotransferase 20 U/L (7-52); Albumin Globulin Ratio 1.3 (0.9-2); Albumin Level 3.8 gm/dl (3.4-5.0); Alkaline Phosphatase 172 U/L (34-104); Anion Gap 9 (3-11); Aspartate Aminotransferase 34 U/L (13-39); BUN Creatinine Ratio 46.5 (10-20); Bilirubin,Total 0.4 mg/dl (0.2-1.0); Blood Urea Nitrogen 100 mg/dl (6-23); Calcium 9.2 mg/dl (8.6-10.3); Carbon Dioxide 22 mmol/L (21-32); Chloride 105 mmol/L (98-107); Est GFR (African American) 23.9 ml/min; Est GFR (Non-African American) 20.6 ml/min; Glucose 106 mg/dl (70-99(Fasting)); Magnesium 2.4 mg/dl (1.7-2.4); Potassium 4.6 mmol/L (3.5-5.1); Sodium 136 mmol/L (136-145); Total Protein 6.8 gm/dl (6.0-8.3)
[2023-08-22 14:48] LABS: Troponin I High Sensitivity 9.3 pg/ml (0-14)
[2023-08-22 14:57] LABS: Thyroid Stimulating Hormone 9.531 uIu/ml (0.300-4.500)
[2023-08-22 14:58] LABS: Partial Thromboplastin Ratio 0.9; Partial Thromboplastin Time 24 Seconds (21-31); Prothrombin Time 11.1 Seconds (9.0-12.0)
--- NOTE | 2023-08-22 15:02 | Emergency Department Note ---
Impression & Plan CKD (chronic kidney disease), Generalized weakness, Cardiac pacemaker in situ, Adult failure to thrive ED Provider Note NAME: LORI MORALES AGE: 83 SEX: F ARRIVES VIA: Walk-In INFORMANT: Patient ED PROVIDER(S): Jamin Newman MD CHIEF COMPLAINT: Weakness, referred. PLAN: Disposition: Admit MEDICAL DECISION MAKING: The patient is a pleasant 83-year-old woman with a past medical history of TIA, CKD, CAD, atrial fibrillation, SSS s/p PPM, dCHF who presents to the emergency department via walk-in accompanied by her son for evaluation of worsening generalized weakness with 2 recent falls (slipping out of bed and in the bathroom) since being discharged from this facility for a admission for a stroke evaluation where she had a negative brain MRI for stroke. The patient had subsequent follow-up with her primary care doctor and had outpatient lab work performed where she had a negative CT scan and blood work that showed acute on chronic renal insufficiency with a creatinine of 2.5. The patient denies any fevers, cough, congestion, GI or symptoms. She does report that she has been having persistent dry mouth and poor taste in her mouth over the past week. On my evaluation in the D pod Sub waiting room the patient is no acute distress, afebrile with stable vital signs. She appears clinically dry. She has no focal neurologic deficits and exhibits generalized weakness in all extremities. EKG without overt acute ischemia. CXR with mild vascular congestion and otherwise no focal consolidation. WBC and platelets within normal limits. H/H approximate to recent values. Chemistry without metabolic acidosis. Creatinine 2.1 somewhat improved from outpatient blood work yesterday but on higher end of prior range values in setting of CKD. LFTs are unremarkable. Electrolytes are unremarkable. High- sensitivity troponin 9.3, within normal limits. TSH is elevated at 9.5 however free T4 and free T3 within normal limits. Covid-19 RNA, NAAT negative. UA without convincing evidence of infection. IVF hydration provided. Case was discussed with Dr. Wilkinson, [facility] hospitalist, who will evaluate the patient for admission. Triage Nursing notes reviewed and agree them. Prior/external medical records reviewed Vital Signs: reviewed Differential diagnosis: Infection, dehydration, metabolic abnormality, hypo/hyperglycemia, electrolyte disturbance, anemia, hypoxia, cardiac sources, intracerebral event, toxicologic, neurologic, as well as other pathologies. ER treatment provided: See below. Diagnostics interpreted by me: ECG: AV dual paced rhythm, 62 bpm, no ectopy, no overt acute ischemia Cardiac Monitoring: An order for continuous cardiac monitoring was placed and demonstrated AV dual paced rhythm, 62 bpm, no ectopy Laboratory studies: See below Imaging studies: See below Consultation(s): Case was discussed with Dr. Wilkinson, [facility] hospitalist, who will evaluate the patient for admission. HPI: The patient is a pleasant 83-year-old woman with a past medical history of TIA, CKD, CAD, atrial fibrillation, SSS s/p PPM, dCHF who presents to the emergency department via walk-in accompanied by her son for evaluation of worsening generalized weakness with 2 recent falls (slipping out of bed and in the bathroom) since being discharged from this facility for a admission for a stroke evaluation where she had a negative brain MRI for stroke. The patient had subsequent follow-up with her primary care doctor and had outpatient lab work performed where she had a negative CT scan and blood work that showed acute on chronic renal insufficiency with a creatinine of 2.5. The patient denies any fevers, cough, congestion, GI or symptoms. She does report that she has been having persistent dry mouth and poor taste in her mouth over the past week. ROS: See above HPI for pertinent positives & negatives. A total of 10 systems reviewed and were otherwise negative. VITALS:See Below PHYSICAL EXAMINATION: GENERAL: Awake, alert, fatigued-appearing, in no distress HENT: Normocephalic, atraumatic. Oropharynx with dry mucous membranes and otherwise unremarkable. EYES: Normal conjunctiva. Sclera non-icteric. NECK: Supple. No nuchal rigidity. FROM. No JVD. RESPIRATORY: Clear to auscultation. CARDIAC: Regular rate, normal rhythm. Extremities warm and well perfused. Pulses equal. ABDOMEN: Soft, non-distended. No tenderness to palpation. No rebound or guarding. No masses. RECTAL: Deferred. MUSCULOSKELETAL: Chest examination reveals no tenderness. The back is symmetrical on inspection without obvious abnormality. There is no CVA tenderness to palpation. No joint edema. LOWER EXTREMITIES: Calves are equal size bilaterally and non-tender. No edema. No discoloration. NEURO: No focal sensory or motor deficits noted. 4+/5 strength x 4 extremities. SKIN: No rash or jaundice noted. Jamin Newman MD Past Med/Surg History Medical History SSS (sick sinus syndrome) Chronic diastolic (congestive) heart failure TIA (transient ischemic attack) Nausea Leukocytosis Near syncope Hypotension Dehydration TIFFANY (acute kidney injury) Near syncope Elevated brain natriuretic peptide (BNP) level Pneumonia Atrial flutter Carotid artery aneurysm Prolonged QT interval Atrial fibrillation with RVR DM type 2 (diabetes mellitus, type 2) History of tobacco abuse Encounter for pre-operative examination Cholelithiasis Cholecystitis Chest pain at rest Pulmonary emphysema Osteoarthritis of right knee HTN (hypertension) RADHA (obstructive sleep apnea) Atrial fibrillation and flutter CKD (chronic kidney disease), stage III Meniere disease Depression Hypothyroidism Asthma, moderate persistent Surgical History History of hysterectomy History of cholecystectomy History of repair of left rotator cuff Hx of neck surgery H/O sinus surgery History of laminectomy Family History Father Diabetes Social History Smoking Status: Former smoker Tobacco Type: Cigarettes packs per day: 1.5; Cigarettes Per Day: 30; Second Hand Exposure: No; Do You Dip or Chew Tobacco: No; Hx Alcohol Use: No Hx Substance Use: No Preferred Language: Sami Communication Ability: Effective President And Chief Executive Officer Required: No Beliefs That Will Affect Care: None marital status: Current Living Situation: Spouse Feels Safe at Home: Yes Assistive Devices: Hearing Aid - Right and Walker Allergies Allergies Allergy/AdvReac Type Severity Reaction Status Date / Time Sulfa (Sulfonamide Allergy Severe Severe Verified 08/22/23 19:31 Antibiotics) rxn: rash and hives celecoxib Allergy Intermediate Rash/Hives/ Verified 08/22/23 19:31 Itching. cephalexin Allergy Intermediate Rash/Hives/ Verified 08/22/23 19:31 Itching. furosemide Allergy Intermediate Rash/Hives/ Verified 08/22/23 19:31 Itching. gabapentin Allergy Intermediate Rash/Hives/ Verified 08/22/23 19:31 Itching. pregabalin Allergy Intermediate Rash/Hives/ Verified 08/22/23 19:31 Itching. meclizine Allergy Unknown Unknown Verified 08/22/23 19:31 methylprednisolone Allergy Unknown Rash/Hives/ Verified 08/22/23 19:31 Itching. Penicillins Allergy Unknown Unknown. Verified 08/22/23 19:31 prednisone Allergy Unknown Rash/Hives/ Verified 08/22/23 19:31 Itching. vancomycin Allergy Unknown Jodi Verified 08/22/23 19:31 syn. . nickel Allergy Unknown Verified 08/22/23 19:31 dexamethasone AdvReac Intermediate Steroid Verified 08/22/23 19:31 psychosis. Home Meds Home Medications Medication Instructions Recorded Confirmed montelukast 10 mg tablet 10 mg PO PM 04/08/19 08/22/23 ferrous sulfate 325 mg (65 mg 325 mg PO QAM 06/03/20 08/22/23 iron) tablet atorvastatin 20 mg tablet 20 mg PO QAM 11/26/21 08/22/23 cholecalciferol (vitamin D3) 50 100 mcg PO QAM 11/26/21 08/22/23 mcg (2,000 unit) capsule (Vitamin D3) aspirin 81 mg tablet,delayed 81 mg PO HS 01/04/22 08/22/23 release levalbuterol tartrate 45 1 puff inhalation Q4 PRN Shortness 08/07/22 08/22/23 mcg/actuation aerosol inhaler Of Breath (Xopenex HFA) sertraline 100 mg tablet 150 mg PO QAM 08/07/22 08/22/23 sotalol 80 mg tablet 40 mg PO AMPM 08/07/22 08/22/23 cyanocobalamin (vitamin B-12) 100 100 mcg PO QAM 11/07/22 08/22/23 mcg tablet (Vitamin B-12) folic acid 1 mg tablet 1 mg PO QAM 11/07/22 08/22/23 tiotropium 2.5 mcg-olodaterol 2.5 2 puff inhalation QAM 11/07/22 08/22/23 mcg/actuation mist for inhalation (Stiolto Respimat) torsemide 10 mg tablet 10 mg PO QAM 11/07/22 08/22/23 ipratropium bromide 21 mcg (0.03 2 spray intranasal DAILY PRN 12/06/22 08/22/23 %) nasal spray rhinorrhea allopurinol 300 mg tablet 300 mg PO HS 08/14/23 08/22/23 clopidogrel 75 mg tablet 75 mg PO PM 08/14/23 08/22/23 lorazepam 1 mg tablet 1 mg PO HS PRN sleep/anxiety 08/14/23 08/22/23 levothyroxine 125 mcg capsule 125 mcg PO QAM 08/22/23 08/22/23 Previous Rx's Medication Instructions Recorded pantoprazole 40 mg tablet,delayed 40 mg PO BID #60 tabs 12/09/22 release doxycycline hyclate 100 mg tablet 100 mg PO BID 10 days #20 tabs 08/15/23 Results & Data (ED) Vital Signs Vital Signs - 24 hr 08/22/23 12:52 Temperature 36.8 C Temperature Source Temporal Artery Scan Pulse Rate 65 Respiratory Rate 20 Respiratory Effort / Characteristics Non-Labored Spontaneous Respiratory Depth Normal Blood Pressure 111/56 L Blood Pressure Mean 74 Pulse Oximetry 98 Oxygen Delivery Method Room Air Sepsis Recent Fever Within 48 Hours No Sepsis New/Unexplained Change in Mental Status No Sepsis Action Taken by Nursing No Action Required Laboratory Data Attestation: I reviewed the patient's lab results. 08/22/23 14:01 08/22/23 14:01 Lab Results 08/22/23 Range/Units 14:01 WBC 10.57 (4.8-10.8) K/ul RBC 2.68 L (4.20-5.40) M/uL Hgb 8.3 L (12.0-16.0) g/dl Hct 24.8 L (37.0-47.0) % MCV 92.5 (80.0-100.0) fL MCH 31.0 (25.0-34.0) pg MCHC 33.5 (32.0-36.0) g/dL RDW Std Deviation 54.9 H (36.4-46.3) fL RDW Coeff of Francisco Javier 16.2 H (11.5-14.5) % Plt Count 220 (130-400) K/uL MPV 11.2 (9.4-12.4) fL Immature Gran % (Auto) 0.6 % Neut % (Auto) 70.2 % Lymph % (Auto) 15.1 % Mcdonald % (Auto) 9.2 % Eos % (Auto) 4.4 % Baso % (Auto) 0.5 % Neut # (Auto) 7.43 H (1.40-6.50) K/uL Lymph # (Auto) 1.60 (1.20-3.40) K/uL Mcdonald # (Auto) 0.97 H (0.11-0.59) K/uL Eos # (Auto) 0.46 (0.00-0.50) K/uL Baso # (Auto) 0.05 (0.00-0.20) K/uL Immature Gran # (Auto) 0.06 (0.01-0.20) K/uL PT 11.1 (9.0-12.0) Seconds INR 1.0 (0.9-1.1) APTT 24 (21-31) Seconds PTT Ratio 0.9 Sodium 136 (136-145) mmol/L Potassium 4.6 (3.5-5.1) mmol/L Chloride 105 (98-107) mmol/L Carbon Dioxide 22 (21-32) mmol/L Anion Gap 9 (3-11) BUN 100 H (6-23) mg/dl Creatinine 2.15 H (0.6-1.2) mg/dl Est Cr Clr Drug Dosing Not Reportable Est GFR ( Amer) 23.9 ml/min Est GFR (Non-Af Amer) 20.6 ml/min BUN/Creatinine Ratio 46.5 H (10-20) Glucose 106 H (70-99(Fasting)) mg/dl Calcium 9.2 (8.6-10.3) mg/dl Phosphorus 3.9 (2.5-4.9) mg/dl Magnesium 2.4 (1.7-2.4) mg/dl Total Bilirubin 0.4 (0.2-1.0) mg/dl AST 34 (13-39) U/L ALT 20 (7-52) U/L Alkaline Phosphatase 172 H (34-104) U/L Total Creatine Kinase 44 (26-192) U/L Troponin I High Sens 9.3 (0-14) pg/ml Total Protein 6.8 (6.0-8.3) gm/dl Albumin 3.8 (3.4-5.0) gm/dl Globulin 3.0 (2.5-4.0) gm/dl Albumin/Globulin Ratio 1.3 (0.9-2) TSH 9.531 H (0.300-4.500) uIu/ml Free T4 1.11 (0.61-1.60) ng/dl Free T3 2.76 (2.3-4.2) pg/ml Administered Medications Sodium Chloride (Nss) 1,000 mls @ 80 mls/hr IV .[id number] JULIO CESAR Stop: 08/23/23 20:53 Last Admin: 08/22/23 21:26 Dose: 80 mls/hr Documented By: MERCEDES Discontinued Medications Sodium Chloride (Nss) 500 mls @ 999 mls/hr IV .Q31M ONE Stop: 08/22/23 17:50 Last Infusion: 08/22/23 18:45 Dose: Infused Documented By: Admin: 08/22/23 17:53 Dose: 999 mls/hr Documented By: PINKY Imaging Data Radiologist's Impression: Chest X-Ray 08/22/23 12:56 XR chest 1V not portable HISTORY: 83 years-old Female Weakness acute weakness COMPARISON: 11/07/2022 TECHNIQUE: PA view of the chest FINDINGS: Cardiac silhouette is enlarged. There is a left subclavian pacer. Surgical clips project over the left heart border right upper quadrant. No pneumothorax, pleural effusion or airspace consolidation. Pulmonary vascular congestion. Fusion hardware noted within the cervical spine. Cholecystectomy. Left atrial exclusion device. IMPRESSION: Cardiomegaly with pulmonary vascular congestion. ACT 112: Negative or not required by law. The above report was generated using voice recognition software. It may contain grammatical, syntax or spelling errors. Electronically signed by: Talha Caballero M.D. 08/22/2023 1:47 PM Discharge Plan Visit Data Chief Complaint: Referred by Doctor Stated Complaint: REF BY FOR ADMITTING ED Provider: Jamin Newman Discharge Problem: CKD (chronic kidney disease), Generalized weakness, Cardiac pacemaker in situ, Adult failure to thrive Discharge Instructions Interventions: ED Discharge Assessment Last Done: 08/22/23 19:54 Discharge Problem: CKD (chronic kidney disease) Qualifiers: Chronic kidney disease stage: unspecified stage Qualified Code(s): N18.9 - Chronic kidney disease, unspecified
--- NOTE | 2023-08-22 16:15 | Electrocardiogram Report ---
Test Reason : Blood Pressure : / mmHG Vent. Rate : 062 BPM Atrial Rate : 062 BPM P-R Int : 126 ms QRS Dur : 110 ms QT Int : 492 ms P-R-T Axes : 085 041 -07 degrees QTc Int : 499 ms AV dual-paced rhythm Abnormal ECG When compared with ECG of 15-AUG-2023 06:01, Vent. rate has increased BY 2 BPM Confirmed by Elmer Dahl ([id number]) on 08/22/2023 4:15:40 PM Referred By: Confirmed By:Royce Dahl
[2023-08-22] MEDS ORDERED: SODIUM CHLORIDE 0.9% 500 ML IV ONE (17:20)
[2023-08-22 17:48] LABS: Creatine Kinase 44 U/L (26-192); Phosphorus 3.9 mg/dl (2.5-4.9)
[2023-08-22 19:43] LABS: Appearance Urine Clear (Clear); Bilirubin Urine Negative (Negative); Blood Urine Negative (Negative); Color Urine Yellow; Glucose Urine UA Negative (Negative); Ketones Urine Negative (Negative); Leukocyte Esterase Urine Negative (Negative); Nitrite Urine Negative (Negative); Protein Urine Negative (Negative); Specific Gravity Urine 1.012 (1.000-1.030); Urobilinogen Urine Negative (Negative)
--- OUTSIDE RECORDS SUMMARY | 2023-08-22 20:00 | External Medical Summary | Summary of Care ---
Author Name Unknown Organization [facility] Address [address] [place] [address] Phone [phone] Care Team Providers Care General Manager [employer] Name Role Phone Florentin Calvo DO Primary Care Provider [phone] Reason for Visit * Reason Onset Date Comments Appointment 08/21/2023 PT and OT Encounter Details Date Type Department Care Team (Late st Contact Info) Description 08/21/2023 Telephone Family Practice [address] [facility] [place] [address] [place] [address] Florentin Calvo DO [address] [place] [address] Appointment (PT and OT) Allergies Active Allergy Reactions Criticality Noted Date [...] as of this encounter (statuses as of 08/21/2023) Medications Medication Sig Dispensed Refills Start Date End Date Status [email or web address] w/Device KitIndications:Type 2 diabetes mellitus with hemoglobin A1c goal of less than 7.0% ([facility]) Use up to 1 times [...] BEDTIME 100 Tablet 3 08/05/2022 09/10/2023 Active Sertraline HCl 100 MG Oral Tablet (Zoloft) Take one and one-half Tablets by mouth in the morning. 150 Tablet 1 03/17/2023 Active Ferrous Sulfate 325 (65 Fe) MG Oral Tablet (Feosol) Take 1 Tablet by mouth daily with breakfast. 100 Tablet 1 03/18/2023 Active Atorvastatin Calcium 20 MG Oral Tablet (Lipitor)Indication s:PVD (peripheral vascular disease) ([facility]),Type 2 diabetes mellitus with stage 3a chronic kidney disease and hypertension ([facility]) TAKE ONE TABLET BY MOUTH EVERY DAY DIRECTED 100 Tablet 3 03/31/2023 Active Ipratropium [place] 0.03 % Nasal Solution (Atrovent)Indicatio ns:Chronic rhinitis [...] bedtime. 90 Tablet 3 05/16/2023 Active Tiotropium [place]-Olodaterol 2.5-2.5 MCG/ACT Inhalation Aerosol Solution (Stiolto Respimat) [...] or Anxiety. 30 Tablet 0 08/07/2023 Active Doxycycline Hyclate 100 MG Oral Tablet Take 1 Tablet by mouth in the morning and 1 Tablet before bedtime. 0 2023 08/25/2023 Active Torsemide 10 MG Oral Tablet (Demadex) Take 1 Tablet by mouth in the morning. 100 Tablet 3 08/20/2023 Active Hospital, Clinic, or Other Facility Administered [...] as of this encounter (statuses as of 08/21/2023) Active Problems Problem Noted Date Diagnosed Date Presence of Watchman left atrial appendage closu re device 07/31/2023 S/P mitral valve clip implantation 03/06/2023 Atherosclerosis of [place] 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 02/13/2023 [...] Obstructive sleep apnea of adult 09/09/2014 Overview: [employer] Last Assessment & Plan: Now just using [...] as of this encounter (statuses as of 08/21/2023) Resolved Problems Problem Noted Date Diagnosed Date [...] Stage IA(cT1a, cN0(sn), cM0) - Signed by Florentni Perez MD on 02/24/2020 Endometrial intraepithelial neoplasia [...] as of this encounter (statuses as of 08/21/2023) Immunizations Name Administration Dates Next Due COVID-19 mRNA, LNP-s, No Pre serve, 2-Dose Series (Moderna) 06/23/2021,10/25/2020,09/28/2020 COVID-19, LNP-s, No Preserve , Larry-sucrose, Ages 12+ (Pfizer) 04/09/2022 COVID-19, MRNA-LNP, 23-24, P F, 30 MCG/0.3 mL, 12 YRS AND ABOVE, IM ([employer]-Comirnat) 06/09/2023 Covid-19, Mrna, Lnp-s, Pf, B ivalent, 30 Mcg, IM, 12 yrs and above (Apervita) 09/10/2022 HEP A - Hepatitis A (Adult [...] Miscellaneous Notes * Telephone Encounter - Grace Arnold OSA - 08/21/2023 4:23 PM EST Orders faxed to [facility], they will contact pt directly to schedule. * Telephone Encounter - Grace Arnold OSA - 08/21/2023 2:40 PM EST Will be contacted to schedule. documented in this encounter Plan of Treatment Upcoming Encounters Date Type Department Care Team (Late st Contact Info) Description 08/26/2023 11:20 AM EST Office Visit Family Practice [address] [place] [address] [address] [place] [address] Florentin Calvo, DO [address] [place] [address] 09/02/2023 2:30 PM EST Home Visit [facility] [address] [facility] [place] [address] Michelle Hurt RN [address] [facility] [place] [address] 09/11/2023 3:30 PM EST Office Visit Cardiology, [facility] [address] [facility] [place] [address] Stephen Hewitt, DO [address] [facility] [place] [address] 09/15/2023 8:00 AM EST Appointment [address] [id number] 10/14/2023 2:30 PM EST Office Visit Hematology/Oncology [facility] [address] [facility] [place] [address] Nereyda Metz CRNP [address] [facility] [place] [address] 10/24/2023 2:30 PM EST Office Visit Gynecology/Oncology, [place] [address] [place] [address] Vanessa Elena PA-C [address] [place] [address] 11/04/2023 11:00 AM EDT Office Visit Otolaryngology [facility] [address] [facility] [place] [address] Cheri Castillo PA-C [facility] [address] 12/08/2023 2:20 PM EDT Office Visit Family Practice [address] [place] [address] [address] [place] [address] Florentin Calvo DO [address] [place] [place] [address] 01/21/2024 2:40 PM EDT Office Visit Otolaryngology [facility] [address] [place] [address] Cehri Castillo PA-C [facility] [address] 02/17/2024 3:30 PM EDT Office Visit Nephrology, [facility] [address] [facility] [place] [address] Michelle Ivy PA-C [address] [facility] [place] [address] 06/03/2024 2:15 PM EDT Office Visit Ophthalmology, [facility] [address] [place] [address] Wilbur Benavides, DO [address] [place] [address] 08/09/2024 1:00 PM EST Nurse Only Ancillary [address] [facility] [address] [facility] [place] [address] College, Nurse Annual Wellness Visit [address] [facility] [address] [facility], [place] [address] Health Maintenance Due Date Last Done Comments Hepatitis B (1 of 3 - Risk 3-dose series) 2000 TSH 09/24/2023 09/24/2022, 10/2022, 02/12/2022, Additional history exists Diabetic Foot Exam 10/01/2023 10/01/2022, 0 10/26/2021, 12/05/2020, Additional history exists HbA1c 02/14/2024 2023, 01/25, 08/27/2022, Additional history exists GFR 02/19/2024 08/20/2023, 07/26, 08/13/2023, Additional history exists Albumin/Creatinine Ratio 02/22/2024 023, 05/01/2022, 10/26/2021, Additional history exists Diabetic Eye Exam 05/22/2024 05/22/2023, , 05/22/2023, Additional history exists CKD PHOS USE SMARTSET 61818 08/19/202407/26, 05/01/2022, 04/03/2022, Additional history exists CKD HGB USE SMARTSET 98661 08/20/202408/20, 08/20/2023, 08/19/2023, Additional history exists Depression Screening 08/21/2024 08/21/2023 DXA Scan 05/07/2025 05/07/2021, 12/24, 04/12/2013, Additional [...] this encounter Medical Devices Implanted Type Area Animal Chiropractor Device Identifier Shelf Expiration Date Model / Serial / Lot Cath Thermodilution 6fr - [id number] Implanted:Qty: 1 on 01/24/2023 by Wilbur Rivera MD at [facility] [employer] [id number] 10/15/2024 [id number] / / [id number] Mirtaclip G4 - [id number] Implanted:Qty: 1 on 03/10/2023 at [facility] [employer] 11/19/2023 [id number] / / [id number] Device Watchman Flx 31mm - [id number] Implanted:Qty: 1 on 07/31/2023 by Wilbur Rivera MD at [facility] [employer] : INTRV CARD [id number] 12/02/2025 [id number] documented as of this encounter Advance Directives Documents on File Type Date Recorded 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 No Code Status History Code Status Date [...] [facility] Care [facility] t (per Health Care Power of Manager Welding document) Care Teams General Manager [employer] Relationship Specialty Start Date End Date Florentin Calvo DO [address] [facility] [place] [address] PCP - General Internal Medicine 03/24/13 documented as of this encounter
--- OUTSIDE RECORDS SUMMARY | 2023-08-22 20:00 | External Medical Summary | Summary of Care ---
Author Name Unknown Organization [facility] Address [address] [place] [address] Phone [phone] Care Team Providers Care Overnight Houseperson Name Role Phone Florentin Calvo DO Primary Care Provider [phone] Reason for Visit * Reason Comments Outpatient Testing Encounter Details Date Type Department Care Team (Late st Contact Info) Description 08/21/2023 3:40 PM EST Laboratory Laboratory, [facility] [address] [place] [id number] [facility] [address] [place] [address] Abnormal renal function Allergies Active Allergy Reactions Criticality Noted Date [...] Dispensed Refills Start Date End Date Status Gladitoodio w/Device KitIndications:Type 2 diabetes mellitus with hemoglobin A1c goal of less than 7.0% ([facility]) Use up to 1 times a [...] Oral Tablet (Lipitor)Indication s:PVD (peripheral vascular disease) ([facility]),Type 2 diabetes mellitus with stage 3a chronic kidney disease and hypertension ([facility]) TAKE ONE TABLET BY MOUTH EVERY DAY DIRECTED 100 Tablet 3 03/31/2023 Active Ipratropium Ward 0.03 % Nasal Solution (Atrovent)Indicatio ns:Chronic rhinitis [...] bedtime. 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 No-BREVIG [place] can hear w/ hearing aid 03/07/2023 Are [...] Team (Late st Contact Info) Description 08/21/2023 4:00 PM EST Imaging Radiology [facility] [address] [facility] [place] [address] Traumatic injury of head, initial encounter 08/26/2023 11:20 AM EST Office Visit Family Practice [address] [place] [address] [address] [facility], [place] [phone] Florentin Calvo, DO [address] [facility], [place] [address] 09/02/2023 2:30 PM EST Home Visit [facility] [address] [facility] [place] [address] Michelle Hurt RN 132 [facility] [place] [address] 09/11/2023 3:30 PM EST Office Visit Cardiology, [facility] [address] [facility] [place] [address] Stephen Hewitt, DO 132 [facility] [place] [address] 09/15/2023 8:00 AM EST Appointment Cardiac Studies [facility], [address] [address] 10/14/2023 2:30 PM EST Office Visit Hematology/On[facility] [address] [facility] [address] Nereyda Metz CRNP [address] [facility] [place] [address] 10/24/2023 2:30 PM EST Office Visit Gynecology/Oncology, [address] [place] [address] Vanessa Elena PA-C [address] [place] [address] 11/04/2023 11:00 AM EDT Office Visit Otolaryngology [facility] [address] [facility] [place] [address] Cheri Castillo PA-C [facility] [address] 12/08/2023 2:20 PM EDT Office Visit Family Practice [address] [place] [address] [address] [place] [phone] Florentin Calvo, [address] [place] [address] 01/21/2024 2:40 PM EDT Office Visit Otol[facility] [place] [address] Cheri Castillo PA-C [address] [facility] [address] 02/17/2024 3:30 PM EDT Office Visit Nephrology, [address] [place] [address] ZemaitisMichelle PA-C 200 [facility] [place], [place] [address] 06/03/2024 2:15 PM EDT Office Visit Ophthalmology, [facility] [address] [facility] [place] [address] Wilbur Benavides, DO 21 [place] [address] 08/09/2024 1:00 PM EST Nurse Only Ancillary [address] [facility] [address] [facility], [place] [address] College, Nurse Annual Wellness Visit [address] [facility] [address] [facility], [place] [address] Pending Results Name Type Priority Associated Diagnoses Date /Time BASIC METABOLIC PANEL Lab Routine Abnormal renal function 08/21/2023 3:28 PM EST Health Maintenance Due Date Last Done Comments Hepatitis B (1 of 3 - Risk 3-dose series) 2000 TSH 09/24/2023 09/24/2022, 01/0 10/2022, 02/12/2022, Additional history exists Diabetic Foot Exam 10/01/2023 10/01/2022, 0 10/26/2021, 12/05/2020, Additional history exists HbA1c 02/14/2024 2023, 01/25, 08/27/2022, Additional history exists GFR 02/19/2024 08/20/2023, 07/26, 08/13/2023, Additional history exists Albumin/Creatinine Ratio 02/22/2024 023, 05/01/2022, 10/26/2021, Additional history exists Diabetic Eye Exam 05/22/2024 05/22/2023, , 05/22/2023, Additional history exists CKD PHOS USE SMARTSET 34522 08/19/202407/26, 05/01/2022, 04/03/2022, Additional history exists CKD HGB USE SMARTSET 54507 08/20/202408/20, 08/20/2023, 08/19/2023, Additional history exists Depression [...] this encounter Medical Devices Implanted Type Area Latin Professor Device Identifier Shelf Expiration Date Model / Serial / Lot Cath Thermodilution 6fr - [id number] Implanted:Qty: 1 on 01/24/2023 by Wilbur Rivera MD at [facility] [employer] [id number] 10/15/2024 [id number] / / [id number] Mirtaclip G4 - [id number] Implanted:Qty: 1 on 03/10/2023 at [facility] [employer] 11/19/2023 [id number] / / [id number] Device Watchman Flx 31mm - [id number] Implanted:Qty: 1 on 07/31/2023 by Wilbur Rivera MD at [facility] [employer] : INTRV CARD [id number] 12/02/2025 [id number] / / [id number] documented as of this encounter Visit Diagnoses Diagnosis Traumatic injury of head, initial encounter Abnormal renal function Unspecified disorder of kidney and ureter documented in this encounter Advance Directives Documents on File Type Date Recorded Patient Electronic Engraver Expl anation Advance Directives and Living Will 11/29/2022 ADVANCE DIRECTIVE / LIVING WILL Power of Entry Analyst 11/29/2022 POWER OF A TTORNEY Advance Directives and Living Will 10/24/2014 ADVANCE DIRECTIVE / LIVING WILL Power of Entry Analyst 10/24/2014 POWER OF A TTORNEY Latest [...] the patient have Health Care Power of Entry Analyst? No Code Status History Code Status Date [...] Name Relationship Healthcare Agent [facility] p Communication Bright Yuval Adult Child Health Care Agen t (per Health Care Power of Entry Analyst document) Care Teams Overnight Houseperson Relationship Specialty Start Date End Date Florentin Calvo DO [address] [place] [address] PCP - General Internal Medicine 03/24/13 documented as of this encounter
--- OUTSIDE RECORDS SUMMARY | 2023-08-22 20:00 | External Medical Summary ---
Author Name Unknown Address Unknown Organization [id number]:[facility] [address] [place] [address] Laboratory Report Ordering Provider Test Date Status ANTONIO EDMONDS 08/21/2023 15:28:56 Final Observation Date Value Abnormality Reference (Units ) Status BUN 08/21/2023 15:28:56 89 Above high normal 6-20 (mg/dL) Final Creatinine 08/21/2023 15:28:56 2.4 Above high normal 0.5-1.0 (mg/dL) Final Glomerular filtration rate/1.73 sq M.predicted [Volume Rate/Area] in Serum, Plasma or Blood by Creatinine-based formula (CKD-EPI) 08/21/2023 15:28:56 19 Below low normal >=60 (mL/min) Final eGFR is calculated based on the CKD-EPI 2020 equation SODIUM 08/21/2023 15:28:56 138 135-146 (m mol/L) Final Potassium 08/21/2023 15:28:56 4.8 3.5-5.1 (m mol/L) Final Cl 08/21/2023 15:28:56 102 98-107 (mm ol/L) Final CO2 08/21/2023 15:28:56 23 22-32 (mmo l/L) Final Anion gap 08/21/2023 15:28:56 13 7-15 (mmol /L) Final Glucose 08/21/2023 15:28:56 133 Above high normal 70 -120 (mg/dL) Final Calcium 08/21/2023 15:28:56 9.4 8.4-10.2 ( mg/dL) Final Performing Location [facility] [address] [place] [address]
--- OUTSIDE RECORDS SUMMARY | 2023-08-22 20:00 | External Medical Summary | Summary of Care ---
Author Name Unknown Organization [facility] Address [address] [place] [address] Phone [phone] Care Team Providers Care Bee Worker Name Role Phone Florentin Calvo DO Primary Care Provider [phone] Reason for Referral * Evaluate & Treat - Unlimited Visits (Within 10 days (routine)) - Authorized Specialty Diagnoses / Procedures Referred By Danny mcdowell Referred To Contact Occupational Medicine / Occupational Therapy Diagnoses Falls frequently Other abnormalities of gait and mobility Florentin Calvo DO [address] [place] [address] Referral ID Status Reason Start Date Expiration Date Visits Requested Visits Authorized [id number] Authorized Specialty Services Required 3 [phone] Question Answer Referral Priority Within 10 days (routine) Where should this appointment be scheduled? [facility] * Evaluate & Treat - Unlimited Visits (Within 10 days (routine)) - Authorized Specialty Diagnoses / Procedures Referred By Danny mcdowell Referred To Contact Physical Therapy / Physical Medicine And Rehab Diagnoses Falls frequently Other abnormalities of gait and mobility Florentin Calvo DO [address] [place] [address] Referral ID Status Reason Start Date Expiration Date Visits Requested Visits Authorized [id number] Authorized Specialty Services Required 999 999 Question Answer Referral Priority Within 10 days (routine) Where should this appointment be scheduled? [facility] * Precert (Within 24 hrs (call dept; emergent)) - Pending Review Specialty Diagnoses / Procedures Referred By Contac t Referred To Contact Radiology Diagnoses Traumatic injury of head, initial encounter Procedures CT HEAD/BRAIN WO CONTRAST Florentin Calvo DO [address] [place] [address] Referral ID Status Reason Start Date Expiration Date V isits Requested Visits Authorized [id number] Pending Review 08/21/2023 999 999 Reason for Visit * Reason Comments Acute Encounter Details Date Type Department Care Team (Latest Contact Info) Description 08/21/2023 2:00 PM EST Office Visit Family Practice [address] [place] [address], [place] [address] [place] [address] Florentin Calvo DO [address] [place] [address] Traumatic injury of head, initial encounter*; Acute pain of left shoulder; Acute pain of right knee; Falls frequently; Type 2 diabetes mellitus with hemoglobin A1c goal of less than 7.0% ([facility]); Paroxysmal atrial fibrillation ([facility]); Secondary hyperparathyroidism, renal ([facility]); Chronic diastolic CHF (congestive heart failure) ([facility]); Type 2 diabetes mellitus with stage 3b chronic kidney disease, without long-term current use of insulin ([facility]); 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 claudication; Pure hypercholesterolemia; Cardiac pacemaker in situ; Atherosclerosis of ak chin coronary artery of ak chin heart without angina pectoris; S/P mitral valve clip implantation; Presence of Watchman left atrial appendage closure device; Other abnormalities of gait and mobility; Current moderate episode of major depressive disorder without prior episode ([facility]); Type 2 diabetes mellitus with polyneuropathy ([facility]); Displacement of cervical intervertebral disc without myelopathy; Severe tricuspid regurgitation; History of endometrial cancer; Tremor; Iron deficiency anemia, unspecified iron deficiency anemia type; Moderate persistent asthma without complication; Gastro-esophageal reflux disease without esophagitis Allergies Active Allergy Reactions Criticality Noted Date Comments Azithromycin Other (Please comment) 12/04/2021 QTC prolongation at [facility] Celecoxib Hives,Rash High 03/24/2013 Other reaction(s): [...] Dispensed Refills Start Date End Date Status Mireya Dia w/Device KitIndications:Type 2 diabetes mellitus with hemoglobin A1c goal of less than 7.0% ([facility]) Use up to 1 [...] 1 MG Oral TabletIndications:C hronic atrial fibrillation ([facility]) TAKE ONE TABLET BY [...] Oral Tablet (Lipitor)Indication s:PVD (peripheral vascular disease) ([facility]),Type 2 diabetes mellitus with stage 3a chronic kidney disease and hypertension ([facility]) TAKE ONE TABLET BY MOUTH EVERY DAY DIRECTED 100 Tablet 3 03/31/2023 Active Ipratropium [place] 0.03 % Nasal Solution (Atrovent)Indicatio ns:Chronic rhinitis [...] bedtime. 90 Tablet 3 05/16/2023 Active Tiotropium [place]-Olodaterol 2.5-2.5 MCG/ACT Inhalation Aerosol Solution (Stiolto Respimat) [...] mitral valve clip implantation 03/06/2023 Atherosclerosis of ak chin 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 02/13/2023 Last Assessment & Plan: Continue statin, sotalol. 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 Last Assessment & Plan: Now just [...] Sign Reading Time Taken Comments Blood Pressure 116/64 08/21/2023 2:01 PM EST Pulse 64 08/21/2023 2:01 PM EST Temperature 36.2 C (97.1 F) 08/21/2023 2:01 PM ES T Respiratory Rate 13 08/21/2023 2:01 PM EST Oxygen Saturation 99% 08/21/2023 2:01 PM EST Inhaled Oxygen Concentration - - Weight 73.2 kg (161 lb 6.4 oz) 08/21/2023 2:01 P M EST Height 165.1 cm (5' 5") 08/21/2023 2:01 PM EST Body Mass Index 26.86 08/21/2023 2:01 PM EST documented in this encounter Functional Status Functional Status Response Date of Assess ment Are you deaf or do you have serious difficulty hearing? No-ELIM IRA can hear w/ hearing aid 03/07/2023 Are [...] encounter Progress Notes * Florentin Calvo, - 08/21/2023 3:46 PM EST SUBJECTIVE: Inga Barakat is a 83 year old female. Chief Complaint Patient presents with Acute HPI: Patient is an 83 year old female with a history of Atrial Fibrillation, Pacemaker Implant, Severe Mitral Valve Regurgitation repaired with Mitral Valve Clip, Watchman Implant, Severe Tricuspid Valve Regurgitation, Pulmonary HTN, CKD stage III, Lumbar Spinal Stenosis, PVD of the right lower extremity, Depression, Cervical Spinal Fusion, Asthma, TIA, Essential Tremor, Adenocarcinoma of the Uterus treated with Hysterectomy, Iron Deficiency Anemia, Chronic Diastolic CHF, and bilateral hearing loss that is seen post fall. The patient arlette off her shower chair yesterday. The shower curtain frederick came down and hit her in the back of her head. The patient fell out of bed last night and hit her head, left arm and right knee. She has headache, left arm and right knee pain. No vision loss, slurred speech, or focal weakness. She has chronic bilateral leg weakness that has been worsening slowly. She pansinusitis on MRI and is on Doxycycline currently. Patient Active Problem List Diagnosis Code Type 2 diabetes mellitus with hemoglobin A1c goal of less than 7.0% ([facility]) E11.9 Vertigo R42 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 claudication M48.061 Hypothyroidism E03.9 Displacement of cervical intervertebral disc without myelopathy M50.20 Meniere's disease H81.09 Paroxysmal atrial fibrillation ([facility]) I48.0 Obstructive sleep apnea of adult G47.33 Tremor R25.1 Iron deficiency anemia D50.9 Angiodysplasia of colon with hemorrhage K55.21 Acquired renal cyst N28.1 Controlled substance agreement signed Z79.899 Type 2 diabetes mellitus with polyneuropathy ([facility]) E11.42 Secondary hyperparathyroidism, renal ([facility]) N25.81 Pulmonary hypertension ([facility]) I27.20 Current moderate episode of major depressive disorder without prior episode ([facility]) F32.1 Moderate persistent asthma without complication J45.40 Gastro-esophageal reflux disease without esophagitis K21.9 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 ([facility]) E11.319 Pure hypercholesterolemia E78.00 Aneurysm of left carotid artery ([facility]) I72.0 Aortic atherosclerosis ([facility]) I70.0 Chronic kidney disease, stage 3b ([facility]) N18.32 PVD (peripheral vascular disease) ([facility]) I73.9 Chronic diastolic CHF (congestive heart failure) ([facility]) I50.32 Type 2 diabetes mellitus with stage 3b chronic kidney disease, without long-term current use of insulin ([facility]) E11.22, N18.32 Cardiac pacemaker in situ Z95.0 History of endometrial cancer Z85.42 Normocytic anemia D64.9 Primary osteoarthritis of right knee M17.11 Severe tricuspid regurgitation I07.1 History of TIA (transient ischemic attack) Z86.73 Atherosclerosis of ak chin coronary artery without angina pectoris I25.10 S/P mitral valve clip implantation Z98.890, Z95.818 Presence of Watchman left atrial appendage closure device Z95.818 Current Outpatient Medications Medication Sig Dispense [...] BY MOUTH AT BEDTIME 100 Tablet 3 Sertraline HCl 100 MG Oral Tablet (Zoloft) Take one and one-half Tablets by mouth in the morning. 150 Tablet 1 Ferrous Sulfate 325 (65 Fe) MG Oral Tablet (Feosol) Take 1 Tablet by mouth daily with breakfast. 100 Tablet 1 Atorvastatin Calcium 20 MG Oral Tablet (Lipitor) TAKE ONE TABLET BY MOUTH EVERY DAY DIRECTED 100Tablet 3 Ipratropium [place] 0.03 % Nasal Solution (Atrovent) Administer 2 [...] mouth at bedtime. 90 Tablet 3 Tiotropium [place]-Olodaterol 2.5-2.5 MCG/ACT Inhalation Aerosol Solution (Stiolto Respimat) Inhale2 Puffs by mouth in the morning. 12 g 3 Levothyroxine Sodium 125 MCG Oral Tablet (Levoxyl) TAKE ONE TABLET BY MOUTH FIRST THING IN THE MORNING 100 Tablet 3 Clopidogrel Bisulfate 75 MG Oral Tablet (pLAVix) Take 1 Tablet by mouth every evening. 30 Tablet 5 LORazepam 1 MG Oral Tablet (Ativan) Take 1 Tablet by mouth at bedtime as needed for Sleep or Anxiety. 30 Tablet 0 Doxycycline Hyclate 100 MG Oral Tablet Take 1 Tablet by mouth in the morning and 1 Tablet before bedtime. Torsemide 10 MG Oral Tablet (Demadex) Take 1 Tablet by mouth in the morning. 100 Tablet 3 Medingo Medical SolutionsTouch Verio w/Device Kit Use up to 1 [...] Garza CRNP 2.5 mg at 10/31/22 1441 The patient's medication list was reviewed and updated as needed. 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 Pleural effusion Pulmonary arterial hypertension (HCC) Pure hypercholesterolemia 07/02/2021 PVD (peripheral vascular disease) ([facility]) 05/15/2022 Retinopathy Secondary hyperparathyroidism, renal ([facility]) 12/17/2018 Severe mitral valve regurgitation 10/30/2022 Severe tricuspid regurgitation 11/18/2022 Spinal stenosis 07/2002 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 claudication 03/24/2013 Vertigo 03/24/2013 Past Surgical History: Procedure Laterality Date COLONOSCOPY, DIAGNOSTIC (RECTUM) 10/12/2014 inflammatory tissue on bx, diverticulosis/[facility] COLONOSCOPY, DIAGNOSTIC (RECTUM) 01/05/2016 diverticulosis, multiple non-bleeding colonic angioectasias COLONOSCOPY, DIAGNOSTIC (RECTUM) 04/15/2016 angiodysplastic lesion, diverticulosis/COLONOSCOPY FLEXIBLE PROXIMAL DIAGNOSTIC performed by Izzy Stone MD at [facility] COLONOSCOPY, DIAGNOSTIC (RECTUM) 11/10/2020 Hemorrhoids, multi polyps, diverticulosis in sigmoid colon/ biopsy show adenomatous polyp/ COLONOSCOPY FLEXIBLE PROXIMAL DIAGNOSTIC performed by Maine Stone MD at [facility] COLONOSCOPY, DIAGNOSTIC (RECTUM) 03/11/2022 poor prep / [facility] CORONARY ANGIOGRAPHY W/RIGHT+LEFT CATH Right 01/24/2023 CORONARY ANGIOGRAPHY W/RIGHT+LEFT CATH performed by Wilbur Rivera MD at [facility] CYSTOSCOPY 06/2012 EGD, FLEXIBLE, DIAGNOSTIC 10/12/2014 normal bx, HH/[facility] EGD, FLEXIBLE, DIAGNOSTIC 01/05/2016 ESOPHAGOGASTRODUODENOSCOPY (EGD), FLEXIBLE, TRANSORAL, DIAGNOSTIC performed by Maine Stone MD at [facility] EGD, FLEXIBLE, DIAGNOSTIC 03/11/2022 Multiple small non-bleeding fundic gland polyps / [facility] EGD, FLEXIBLE, DIAGNOSTIC 12/09/2022 mild-mod inflammation / [facility] LAPAROSCOPY TOTAL HYSTX, UTERUS 250GM OR LESS TUBE/OVARY N/A 02/22/2020 ROBOTIC LAPAROSCOPIC HYSTERECTOMY REMOVAL TUBES AND OVARIES FOR UTERUS 250GM OR LESS performed by Florentin Perez MD at [facility] LAPAROSCOPY; CHOLECYSTECTOMY N/A 06/06/2020 LIGATE/CUT OVIDUCT(S) MAMMOGRAM BREAST NEEDLE BIOPSY CORE LEFT Left 09/19/2015 benign NECK SPINE FUSION (CERV, BELOW C2) 1993 1999,2011 PATIENT EDU, LUMBAR LAMINECTOMY 2001 1996 too PERC CLOSURE TRANSCATH LEFT ATRIAL APPENDAGE W/ENDOCARDIAL IMPLANT Bilateral 07/31/2023 PERCUTANEOUS CLOSURE LEFT ATRIAL APPENDAGE IMPLANT performed by Wilbur Rivera MD at [facility] [place] TONSILLECTOMY PRIMARY/SECONDARY LESS THAN AGE 12 Bilateral REPAIR RUPTURED ROTATOR CUFF, ACUTE Left 08/08/2015 SINUS SURGERY PROCEDURE NEC 1994 TRANSCATH REPAIR MITRAL VALVE, INITIAL Bilateral 03/06/2023 TRANSCATHETER MITRAL VALVE REPAIR performed by Wilbur Rivera MD at [facility] Review of patient's allergies indicates: Allergen Reactions [...] Azithromycin Other (Please comment) QTC prolongation at [facility] Nickel Swelling Other reaction(s): Unknown Review of Systems Constitutional: Positive for appetite change and fatigue. Negative for unexpected weight change. HENT: Negative for congestion, rhinorrhea and sinus pressure. Respiratory: Negative for cough, shortness of breath and wheezing. Cardiovascular: Negative for chest pain, palpitations and leg swelling. Gastrointestinal: Negative for abdominal pain, blood in stool, constipation, diarrhea, nausea and vomiting. Genitourinary: Negative for dysuria, frequency and hematuria. Musculoskeletal: Positive for back pain and gait problem. Neurological: Positive for tremors and headaches. Negative for dizziness and syncope. Psychiatric/Behavioral: Positive for sleep disturbance. Negative for confusion and decreased concentration. OBJECTIVE: BP 116/64 | Pulse 64 | Temp 36.2 C (97.1 F) (Tympanic) | Resp 13 | Ht 1.651 m (5' 5") | Wt 73.2 kg (161 lb 6.4 oz) | SpO2 99% | BMI 26.86 kg/m | BSA 1.83 m Physical Exam Vitals and nursing note reviewed. Constitutional: General: She is not in acute distress. Appearance: Normal appearance. She is not toxic-appearing. HENT: Head: Normocephalic and atraumatic. Eyes: Extraocular Movements: Extraocular movements intact. Pupils: Pupils are equal, round, and reactive to light. Cardiovascular: Rate and Rhythm: Normal rate and regular rhythm. Heart sounds: Murmur heard. No gallop. Pulmonary: Effort: Pulmonary effort is normal. Breath sounds: Normal breath sounds. No wheezing, rhonchi or rales. Abdominal: General: Bowel sounds are normal. There is no distension. Palpations: Abdomen is soft. Tenderness: There is no abdominal tenderness. Musculoskeletal: Left shoulder: No deformity or effusion. Normal range of motion. Left upper arm: No edema, deformity or lacerations. Right knee: Erythema present. No effusion or bony tenderness. Right lower leg: No edema. Left lower leg: No edema. Comments: Ecchymosis of left upper arm. Neurological: General: No focal deficit present. Mental Status: She is alert and oriented to person, place, and time. Cranial Nerves: No cranial nerve deficit. Motor: Weakness present. Gait: Gait abnormal. Psychiatric: Mood and Affect: Mood normal. Behavior: Behavior normal. Thought Content: Thought content normal. Imaging reviewed with patient at visit Left shoulder x-rays : no fracture Right knee x-rays: OA of the knee , no fracture PLAN AND ASSESSMENT: Traumatic injury of head, initial encounter (Primary) - CT HEAD/BRAIN WO CONTRAST; Future; Expected date: 08/21/2023 Acute pain of left shoulder - XR SHOULDER, 2 OR MORE VIEWS Acute pain of right knee - XR KNEE 4 OR MORE VIEWS Falls frequently - PHYSICAL THERAPY REFERRAL OP - OCCUPATIONAL THERAPY REFERRAL OP Continue to use walker at all times Type 2 diabetes mellitus with hemoglobin A1c goal of less than 7.0% ([facility]) Diet controlled Paroxysmal atrial fibrillation (HCC) S/P Watchman closure device placement Continue Sotalol per Cardiology Continue Clopidogrel and ASA Secondary hyperparathyroidism, renal (HCC) Chronic diastolic CHF (congestive heart failure) ([facility]) Torsemide dose decreased yesterday due to worsening renal function due to volume depletion Type 2 diabetes mellitus with stage 3b chronic kidney disease, without long-term current use of insulin ([facility]) 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 claudication Pure hypercholesterolemia Continue Atorvastatin Cardiac pacemaker in situ Atherosclerosis of ak chin coronary artery of ak chin heart without angina pectoris Continue ASA S/P mitral valve clip implantation Presence of Watchman left atrial appendage closure device Other abnormalities of gait and mobility - PHYSICAL THERAPY REFERRAL OP - OCCUPATIONAL THERAPY REFERRAL OP Current moderate episode of major depressive disorder without prior episode (HCC) Continue Sertraline Type 2 diabetes mellitus with polyneuropathy (HCC) Displacement of cervical intervertebral disc without myelopathy Severe tricuspid regurgitation History of endometrial cancer Tremor Iron deficiency anemia, unspecified iron deficiency anemia type Moderate persistent asthma without complication Gastro-esophageal reflux disease without esophagitis I spent a total of 40-54 minutes (exact time 43 mins) on the date of service in preparation, delivery, and documentation of the care provided to Inga Barakat excluding any time spent in the performance of separately billed services. Follow Up: Return if symptoms worsen or fail to improve. Florentin Calvo DO 3:53 PM 08/21/2023 documented in this encounter Nursing Notes * Hilda Awad LPN - 08/21/2023 1:59 PM EST Fell in shower yesterday and slid out of bed this morning Has a headache, chest wall pain, right arm pain and left arm pain. documented in this encounter Plan of Treatment Upcoming Encounters Date Type Department Care Team (Late st Contact Info) Description 08/26/2023 11:20 AM EST Office Visit Family Practice [address] [place] [address] [address] [place] [address] Florentin Calvo DO [address] [place] [address] 09/02/2023 2:30 PM EST Home Visit jos[facility] miguel at [facility] [address] [place] [address] Michelle Hurt, AISHA [address] [place] [address] 09/11/2023 3:30 PM EST Office Visit Cardiology, [facility] [address] [facility] [place] [address] Stephen Hewitt, 132 [facility] [place] [address] 09/15/2023 8:00 AM EST Appointment Cardiac Studies [facility], [place] [address] [place] [address] 10/14/2023 2:30 PM EST Office Visit Hematology/Oncology [facility] [address] [place] [address] Nereyda Metz CRNP [address] [place] [address] 10/24/2023 2:30 PM EST Office Visit Gynecology/Oncology, [place] [address] [place] [address] Vanessa Elena PA-C [address] [place] [address] 11/04/2023 11:00 AM EDT Office Visit Otolaryngology [facility] [address] [facility] [place] [address] Cheri Castillo PA-C [facility] [address] 12/08/2023 2:20 PM EDT Office Visit Family Practice [address] [place] [address] [address] [facility] [place] [address] Florentin Calvo, [address] [facility] [place] [address] 01/21/2024 2:40 PM EDT Office Visit Otolaryngology [facility] [address] [facility] [place] [address] Cheri Castillo PA-C 132 [facility] [place] [address] 02/17/2024 3:30 PM EDT Office Visit Nephrology, [facility] 200 [facility] [place], [place] [address] ZemaMichelle churchill PA-C [address] [facility] [place] [address] 06/03/2024 2:15 PM EDT Office Visit Ophthalmology, [facility] [address] [place] [address] Wilbur Benavides, DO [address] [facility] [place] [address] 08/09/2024 1:00 PM EST Nurse Only Ancillary 65 [facility] [address] [facility] [place] [address] College, Nurse Annual Wellness Visit [address] [place] [address] Pending Results Name Type Priority Associated Diagnoses Date /Time XR SHOULDER, 2 OR MORE VIEWS Medical Imaging Routine Acute pain of left shoulder 08/21/2023 2:53 PM EST XR KNEE 4 OR MORE VIEWS Medical Imaging Routine Acute pain of right knee 08/21/2023 2:53 PM EST Scheduled Referrals Name Type Priority Associated Diagnoses Orde r Schedule PHYSICAL THERAPY REFERRAL OP Referral Within 10 days (routine) Falls frequently Other abnormalities of gait and mobility Ordered: 08/21/2023 OCCUPATIONAL THERAPY REFERRAL OP Referral Within 10 days (routine) Falls frequently Other abnormalities of gait and mobility Ordered: 08/21/2023 Health Maintenance Due Date Last Done Comments [...] Additional history exists CKD PHOS USE SMARTSET 55478 08/19/202407/26, 05/01/2022, 04/03/2022, Additional history exists CKD HGB USE SMARTSET 81335 08/20/202408/20, 08/20/2023, 08/19/2023, Additional history exists Depression [...] this encounter Medical Devices 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 Shelf Expiration Date Model / Serial / Lot Cath Thermodilution 6fr - [id number] Implanted:Qty: 1 on 01/24/2023 by Wilbur Rivera MD at [facility] [employer] [id number] 10/15/2024 [id number] / / [id number] Mirtaclip G4 - [id number] Implanted:Qty: 1 on 03/10/2023 at [facility] [employer] 11/19/2023 [id number] / / [id number] Device Watchman Flx 31mm - [id number] Implanted:Qty: 1 on 07/31/2023 by Wilbur Rivera MD at [facility] Warp 9 : INTRV CARD [id number] 12/02/2025 [id number] documented as of this encounter Results * CT HEAD/BRAIN WO CONTRAST (08/21/2023 3:44 PM EST) Anatomical Region Laterality Modality Head Computed Tomogra phy 08/21/2023 3:50 PM EST Impressions 08/21/2023 3:59 PM EST IMPRESSION: 1. No evidence of acute intracranial hemorrhage or calvarial fracture. 2. Diffuse mucosal inflammatory changes of the paranasal sinuses, detailed above. I have personally reviewed this examination and agree with the resident/fellow physician's interpretation. Narrative 08/21/2023 3:59 PM EST EXAM: CT HEAD/BRAIN WO CONTRAST - 08/21/2023 HISTORY: head trauma - fall TECHNIQUE: CT scan of the head was performed without intravenous contrast. COMPARISON: Head CT 08/02/2021. FINDINGS: There is no evidence of acute intracranial hemorrhage or calvarial fracture. Generalized volume loss is appreciated. Patchy hypodensities in the periventricular and deep cerebral white matter are nonspecific, but most commonly represent chronic microvascular ischemic changes. Intracranial atherosclerotic calcifications are noted. There is no significant mass effect, hydrocephalus, or extra-axial fluid collections. Postsurgical changes of prior endoscopic sinonasal surgery. Diffuse mucosal thickening are noted throughout the paranasal sinuses with complete and near complete opacification of the right frontal sinus, bilateral ethmoid air cells and left maxillary sinus with inspissated/proteinaceous secretions. Hyperostosis of the polk of the sinuses suggesting chronic sinusitis. Mastoid air cells are well aerated. Partially imaged cervical hardware. Procedure Note María Newmanoc, DO - 08/21/2023 EXAM: CT HEAD/BRAIN WO CONTRAST - 08/21/2023 HISTORY: head trauma - fall TECHNIQUE: CT scan of the head was performed without intravenous contrast. COMPARISON: Head CT 08/02/2021. FINDINGS: There is no evidence of acute intracranial hemorrhage or calvarialfracture. Generalized volume loss is appreciated. Patchy hypodensities in theperiventricular and deep cerebral white matter are nonspecific, but mostcommonly represent chronic microvascular ischemic changes. Intracranialatherosclerotic calcifications are noted. There is no significant mass effect, hydrocephalus, or extra-axial fluidcollections. Postsurgical changes of prior endoscopic sinonasal surgery. Diffusemucosal thickening are noted throughout the paranasal sinuses withcomplete and near complete opacification of the right frontal sinus,bilateral ethmoid air cells and left maxillary sinus withinspissated/proteinaceous secretions. Hyperostosis of the polk of thesinuses suggesting chronic sinusitis. Mastoid air cells are well aerated.Partially imaged cervical hardware. IMPRESSION IMPRESSION: 1. No evidence of acute intracranial hemorrhage or calvarial fracture. 2. Diffuse mucosal inflammatory changes of the paranasal sinuses, detailedabove. I have personally reviewed this examination and agree with the resident/fellow physician's interpretation. Florentin Calvo DO RAD CT documented in this encounter Visit Diagnoses Diagnosis Traumatic injury of head, initial encounter- Primary Acute pain of left shoulder Acute pain of right knee Falls frequently Personal history of fall Type 2 diabetes mellitus with hemoglobin A1c goal of less than 7.0% (HCC) Paroxysmal atrial fibrillation (HCC) Atrial fibrillation Secondary hyperparathyroidism, renal (HCC) Secondary hyperparathyroidism (of renal origin) Chronic diastolic CHF (congestive heart failure) (HCC) Chronic diastolic heart failure Type 2 diabetes mellitus with stage 3b chronic kidney disease, without long-term current use of insulin (HCC) 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 claudication Spinal stenosis, lumbar region, without neurogenic claudication Pure hypercholesterolemia Cardiac pacemaker in situ Atherosclerosis of ak chin coronary artery of ak chin heart without angina pectoris S/P mitral valve clip implantation Presence of Watchman left atrial appendage closure device Other abnormalities of gait and mobility Current moderate episode of major depressive disorder without prior episode (HCC) Type 2 diabetes mellitus with polyneuropathy (HCC) Type II or unspecified type diabetes mellitus with neurological manifestations, not stated as uncontrolled Displacement of cervical intervertebral disc without myelopathy Severe tricuspid regurgitation Diseases of tricuspid valve History of endometrial cancer Personal history of malignant neoplasm of other parts of uterus Tremor Abnormal involuntary movements Iron deficiency anemia, unspecified iron deficiency anemia type Moderate persistent asthma without complication Unspecified asthma Gastro-esophageal reflux disease without esophagitis Esophageal reflux Traumatic injury of head, initial encounter documented in this encounter Advance Directives Documents on File Type Date Recorded 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 No Code Status History Code Status Date [...] Agents on File Name Relationship Healthcare Agent [facility] Communication Bright Yuval Adult Child Health Care Agen t (per Health Care Power of Wire Hanger document) Care Teams Bee Worker Relationship Specialty Start Date End Date Florentin Calvo DO [address] [place] [address] PCP - General Internal Medicine 03/24/13 documented as of this encounter
--- OUTSIDE RECORDS SUMMARY | 2023-08-22 20:00 | External Medical Summary | Summary of Care ---
Author Name Unknown Organization [facility] Address [address] [place] [address] Phone [phone] Care Team Providers Care Linter Drier Operator Name Role Phone Florentin Calvo DO Primary Care Provider [phone] Reason for Visit * Reason Onset Date Comments Advice 08/21/2023 fall Encounter Details Date Type Department Care Team (Late st Contact Info) Description 08/21/2023 Telephone Family Practice [facility] [address] [place] [address] Florentin Calvo DO [address] [place] [address] Advice (fall) Allergies Active Allergy Reactions Criticality Noted Date [...] Dispensed Refills Start Date End Date Status Re5ultio w/Device KitIndications:Type 2 diabetes mellitus with hemoglobin [...] DIRECTED 100 Tablet 3 03/31/2023 Active Ipratropium [place] 0.03 % Nasal Solution (Atrovent)Indicatio ns:Chronic rhinitis [...] bedtime. 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 No-TATITLEK can hear w/ hearing aid 03/07/2023 Are [...] Telephone Encounter - Hilda Awad LPN - 08/21/2023 1:19 PM EST Scheduled today * Telephone Encounter - Florentin Calvo DO - 08/21/2023 1:17 PM EST Visit today if possible * Telephone Encounter - Hilda Awad LPN - 08/21/2023 11:57 AM EST Daughter called back wanted to let you know that she did hit head last night. "Bumped", states not visual problems, no headache. States that she did hit her chest wall at shower fall and chest wall is painful. Denies problems breathing * Telephone Encounter - Hilda Awad LPN - 08/21/2023 10:36 AM EST Has appt Friday, see sooner. Discuss PT/OT at time of visit? * Telephone Encounter - Grace Jeffries OSA - 08/21/2023 10:30 AM EST Did not hit head when fell Did yesterday when she went down in shower, grab the curtain and it came down on her, not a heavy frederick Bright is on his way to house because not answering phone... Kathy has no idea if has headache Kathy [phone] * Telephone Encounter - Hilda Awad LPN - 08/21/2023 10:18 AM EST Daughter calling, states that Inga fell out of shower chair yesterday and last night she "slid" out of bed this morning. Patient is currently now back in bed now. Daughter states she did not hit her head. Not complaining of any pain. Daughter states patient is also depressed. Schedule tomorrow? documented in this encounter Plan of Treatment Upcoming Encounters Date Type Department Care Team (Late st Contact Info) Description 08/21/2023 2:00 PM EST Office Visit Family Practice [address] [place] [address] [address] [place] [address] Florentin Calvo, DO [address] [place] [address] 08/26/2023 11:20 AM EST Office Visit Family Practice [address] [place] [address] [address] [place] [address] Florentin Calvo, DO [address] [place] [address] 09/02/2023 2:30 PM EST Home Visit [facility] [address] [facility] [address] [facility] [place] [address] Michelle Hurt RN 132 [facility] [place] [address] 09/11/2023 3:30 PM EST Office Visit Cardiology, [facility] [address] [place] [address] Stephen Hewitt, DO 132 [facility] [place] [address] 09/15/2023 8:00 AM EST Appointment Cardiac Studies [address] [address] 10/14/2023 2:30 PM EST Office Visit Hematology/Oncology [facility] [address] [facility] [place] [address] Nereyda Metz CRNP 400 [facility] [place] [address] 10/24/2023 2:30 PM EST Office Visit Gynecology/Oncology, [place] [address] [place] [address] Vanessa Elena PA-C [address] [place] [address] 11/04/2023 11:00 AM EDT Office Visit Otolaryngology [facility] [address] Cheri Castillo PA-C [facility] [address] 12/08/2023 2:20 PM EDT Office Visit Family Practice [address] [place] [address] [address] [place] [address] Florentin Calvo DO [address] [place] [address] 01/21/2024 2:40 PM EDT Office Visit Otolaryngology [facility] 132 [facility] [place] [address] Cheri Castillo PA-C 132 [facility] [place] [address] 02/17/2024 3:30 PM EDT Office Visit Nephrology, [facility] [address] [place] [address] Michelle Ivy PA-C [address] [facility] [place] [address] 06/03/2024 2:15 PM EDT Office Visit Ophthalmology, [facility] [address] [facility] [address] [place] [address] Wilbur Benavides, DO [address] [place] [address] 08/09/2024 1:00 PM EST Nurse Only Ancillary [facility] 293 [place] [address] College, Nurse Annual Wellness Visit [facility] 293 [place] [address] Health Maintenance Due Date Last Done Comments [...] Additional history exists CKD PHOS USE SMARTSET 11571 08/19/202407/26, 05/01/2022, 04/03/2022, Additional history exists Depression Screening 08/19/2024 08/19/2023 CKD HGB USE SMARTSET 82945 08/20/202408/20, 08/20/2023, 08/19/2023, Additional history exists DXA Scan 05/07/2025 05/07/2021, [...] this encounter Medical Devices Implanted Type Area Technical Sales Director Device Identifier Shelf Expiration Date Model / Serial / Lot Cath Thermodilution 6fr - [id number] Implanted:Qty: 1 on 01/24/2023 by Wilbur Rivera MD at [facility] [employer] [id number] 10/15/2024 [id number] / / [id number] Mirtaclip G4 - [id number] Implanted:Qty: 1 on 03/10/2023 at [facility] [employer] 11/19/2023 [id number] / / [id number] Device Watchman Flx 31mm - [id number] Implanted:Qty: 1 on 07/31/2023 by Wilbur Rivera MD at [facility] [employer] : INTRV CARD [id number] 12/02/2025 [id number] documented as of this encounter Advance Directives Documents on File Type Date Recorded Patient Baster Hand Expl anation Advance Directives and Living Will 11/29/2022 ADVANCE DIRECTIVE / LIVING WILL Power of Automatic Grinder Operator 11/29/2022 POWER OF A TTORNEY Advance Directives and Living Will 10/24/2014 ADVANCE DIRECTIVE / LIVING WILL Power of Automatic Grinder Operator 10/24/2014 POWER OF A TTORNEY Latest [...] the patient have Health Care Power of Automatic Grinder Operator? No Code Status History Code Status [...] Name Relationship Healthcare Agent [facility] Communication [facility] Adult Child Health Care Agen t (per Health Care Power of Automatic Grinder Operator document) Care Teams Linter Drier Operator Relationship Specialty Start Date End Date Florentin Calvo DO [address] [place] [address] PCP - General Internal Medicine 03/24/13 documented as of this encounter
--- OUTSIDE RECORDS SUMMARY | 2023-08-22 20:00 | External Medical Summary | Summary of Care ---
Author Name Unknown Organization [facility] Address [address] [place] [address] Phone [phone] Care Team Providers Care Communications Senior Associate Name Role Phone Florentin Calvo DO Primary Care Provider [phone] Reason for Visit * Reason Onset Date Comments Test Results 08/21/202308/21 Encounter Details Date Type Department Care Team (Late st Contact Info) Description 08/21/2023 Telephone Family Practice [facility] [place] [address] [place] [address] Florentin Calvo DO [address] [place] [address] Test Results (08/21) Allergies Active Allergy Reactions Criticality Noted Date [...] Dispensed Refills Start Date End Date Status KuapayTouch Verio w/Device KitIndications:Type 2 diabetes mellitus with [...] 100 Tablet 3 03/31/2023 Active Ipratropium [place] 0.03 % Nasal Solution (Atrovent)Indicatio ns:Chronic rhinitis [...] 90 Tablet 3 05/16/2023 Active Tiotropium [place]-Olodaterol 2.5-2.5 MCG/ACT Inhalation Aerosol Solution (Stiolto Respimat) [...] mitral valve clip implantation 03/06/2023 Atherosclerosis of craig 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 02/13/2023 [...] appointments" already. Advised she can discuss with @ provider at next visit, she agreed. 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 No-SAXMAN can hear w/ hearing aid 03/07/2023 Are [...] Encounter - Hilda Awad LPN - 08/21/2023 4:29 PM EST Patient is aware and will comply. Thank you * Telephone Encounter - Hilda Awad LPN - 08/21/2023 4:28 PM EST ----- Message from Florentin Calvo DO sent at 08/21/2023 4:24 PM EST ----- No fracture or bleed present on CT head. Sinusitis still present. Continue doxycycline. documented in this encounter Plan of Treatment Upcoming Encounters Date Type Department Care Team (Late st Contact Info) Description 08/26/2023 11:20 AM EST Office Visit Family Practice [address] [place] [address] [address] [place] [address] Florentin Calvo DO [address] [place] [address] 09/02/2023 2:30 PM EST Home Visit [facility] [address] [place] [address] Michelle Hurt, RN [address] [place] [address] 09/11/2023 3:30 PM EST Office Visit Cardiology, [facility] [address] [place] [address] Stephen Hewitt DO [address] [place] [address] 09/15/2023 8:00 AM EST Appointment Cardiac Studies [facility] [place] [address] [place] [address] 10/14/2023 2:30 PM EST Office Visit Hematology/Oncology [facility] 200 [facility] [place] [address] Nereyda Metz CRNP [address] [place] [address] 10/24/2023 2:30 PM EST Office Visit Gynecology/Oncology, [place] [address] [place] [address] Vanessa Elena PA-C [address] [place] [address] 11/04/2023 11:00 AM EDT Office Visit Otolaryngology [facility] [address] [place] [address] Cheri Castillo PA-C [facility] [place] [address] 12/08/2023 2:20 PM EDT Office Visit Family Practice [address] [place] [address] 293 [place] [address] Florentin Calvo, [address] [place] [address] 01/21/2024 2:40 PM EDT Office Visit Otolaryngology [facility] [address] [place] [address] Cheri Castillo PA-C [address] [place] [address] 02/17/2024 3:30 PM EDT Office Visit Nephrology, [facility] [address] [place] [address] Michelle Ivy PA-C [address] [place] [address] 06/03/2024 2:15 PM EDT Office Visit Ophthalmology, [facility] [address] [place] [address] Wilbur Benavides, DO [address] [place] [address] 08/09/2024 1:00 PM EST Nurse Only Ancillary 65 [facility] 293 [place] [address] College, Nurse Annual Wellness Visit 65 [facility] 293 [facility], [place] [address] Health Maintenance Due Date Last Done Comments [...] Additional history exists CKD PHOS USE SMARTSET 85116 08/19/202407/26, 05/01/2022, 04/03/2022, Additional history exists CKD HGB USE SMARTSET 34251 08/20/202408/20, 08/20/2023, 08/19/2023, Additional history exists Depression [...] this encounter Medical Devices Implanted Type Area Cokeman Device Identifier Shelf Expiration Date Model / Serial / Lot Cath Thermodilution 6fr - [id number] Implanted:Qty: 1 on 01/24/2023 by Wilbur Rivera MD at [facility] [employer] [id number] 10/15/2024 [id number] / / [id number] Mirtaclip G4 - [id number] Implanted:Qty: 1 on 03/10/2023 at [facility] [employer] 11/19/2023 [id number] / / [id number] Device Watchman Flx 31mm - [id number] Implanted:Qty: 1 on 07/31/2023 by Wilbur Rivera MD at [facility] [employer] : INTRV CARD [id number] 12/02/2025 [id number] documented as of this encounter Advance Directives Documents on File Type Date Recorded 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 No Code Status History Code Status [...] Agent [facility] Bright Yuval Adult Child Health Care Agen t (per Health Care Power of Licensed Nuclear Operator document) Care Teams Communications Senior Associate Relationship Specialty Start Date End Date Florentin Calvo DO [address] [place] [address] PCP - General Internal Medicine 03/24/13 documented as of this encounter
--- OUTSIDE RECORDS SUMMARY | 2023-08-22 20:01 | External Medical Summary | Summary of Care ---
Author Name Unknown Organization [facility] Address [address] [place] [address] Phone [phone] Care Team Providers Care Inspector Government Property Name Role Phone Florentin Calvo DO Primary Care Provider [phone] Reason for Visit * Reason Onset Date Comments Test Results 08/20/202308/20 Encounter Details Date Type Department Care Team (Late st Contact Info) Description 08/20/2023 Telephone Family Practice 65 [facility] [address] [place] [address] Florentin Calvo DO [address] [place] [address] Test Results (08/20) Allergies Active Allergy Reactions Criticality Noted Date Comments Azithromycin Other (Please comment) 12/04/2021 QTC prolongation at [facility] Celecoxib Hives,Rash High 03/24/2013 Other reaction(s): [...] as of this encounter (statuses as of 08/20/2023) Medications Medication Sig Dispensed Refills Start Date End Date Status ZiipaTouch Verio w/Device KitIndications:Typ e 2 diabetes mellitus with hemoglobin A1c goal of less than 7.0% ([facility]) Use up to 1 times a [...] BEDTIME 100 Tablet 3 08/05/2022 4 Active Sertraline HCl 100 MG Oral Tablet (Zoloft) Take one and one-half Tablets by mouth in the morning. 150 Tablet 1 03/17/2023 Active Ferrous Sulfate 325 (65 Fe) MG Oral Tablet (Feosol) Take 1 Tablet by mouth daily with breakfast. 100 Tablet 1 03/18/2023 Active Atorvastatin Calcium 20 MG Oral Tablet (Lipitor)Indicatio ns:PVD (peripheral vascular disease) ([facility]),Type 2 diabetes mellitus with stage 3a chronic kidney disease and hypertension ([facility]) TAKE ONE TABLET BY MOUTH EVERY DAY DIRECTED 100 Tablet 3 03/31/2023 Active Ipratropium [place] 0.03 % Nasal Solution (Atrovent)Indicati ons:Chronic rhinitis [...] bedtime. 90 Tablet 3 05/16/2023 Active Tiotropium [place]-Olodaterol 2.5-2.5 MCG/ACT Inhalation Aerosol Solution (Stiolto Respimat) [...] and 1 Tablet before bedtime. 0 2023 4 Active Torsemide 10 MG Oral Tablet (Demadex) Take 1 Tablet by mouth in the morning. 100 Tablet 3 08/20/2023 Active Torsemide 20 MG Oral Tablet (Demadex) Take 1 Tablet by mouth in the morning. 100 Tablet 3 03/17/2023 3 Discontinue d(Refill) Hospital, Clinic, or Other [...] as of this encounter (statuses as of 08/20/2023) Active Problems Problem Noted Date Diagnosed Date Presence of Watchman left atrial appendage closu re device 07/31/2023 S/P mitral valve clip implantation 03/06/2023 Atherosclerosis of [place] 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 02/13/2023 Last Assessment & Plan: Continue statin, sotalol. 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 Last Assessment & Plan: Now just [...] as of this encounter (statuses as of 08/20/2023) Resolved Problems Problem Noted Date Diagnosed Date [...] as of this encounter (statuses as of 08/20/2023) Immunizations Name Administration Dates Next Due COVID-19 mRNA, LNP-s, No Pre serve, 2-Dose Series (Moderna) 06/23/2021,10/25/2020,09/28/2020 COVID-19, LNP-s, No Preserve , Larry-sucrose, Ages 12+ (Pfizer) 04/09/2022 COVID-19, MRNA-LNP, 23-24, P F, 30 MCG/0.3 mL, 12 YRS AND ABOVE, IM ([employer]-Comirnat) 06/09/2023 Covid-19, Mrna, Lnp-s, Pf, B ivalent, [...] or do you have serious difficulty hearing? No-[place] can hear w/ hearing aid 03/07/2023 Are [...] Telephone Encounter - Grace Jeffries OSA - 08/20/2023 2:56 PM EST Pmaela Son called in He has several questions about the appointment she has scheduled Please call and advise * Telephone Encounter - Hilda Awad LPN - 08/20/2023 1:33 PM EST Patient is aware and will comply. Thank you * Telephone Encounter - Hilda Awad LPN - 08/20/2023 1:31 PM EST ----- Message from Florentin Calvo DO sent at 08/20/2023 12:45 PM EST ----- Potassium is OK Renal function decreased Torsemide decreased to 10 mg daily today Repeat BMP in [address] Green * Telephone Encounter - Florentin Calvo DO - 08/20/2023 12:27 PM EST No iron deficiency. Will repeat CBC in a month * Telephone Encounter - Hilda Awad LPN - 08/20/2023 10:51 AM EST Patient is aware and will comply. Patient is scheduled on 08/22 should this be rescheduled for one week. Please review other labs from add on today. Thank you * Telephone Encounter - Hilda Awad LPN - 08/20/2023 10:10 AM EST Called again. Thank you * Telephone Encounter - Hilda Awad LPN - 08/20/2023 8:17 AM EST Called, left message for patient to return call. Thank you * Telephone Encounter - Hilda Awad LPN - 08/20/2023 8:12 AM EST ----- Message from Florentin Calvo DO sent at 08/20/2023 8:11 AM EST ----- Anemia is stable Renal function decreased And potassium is up Needs repeat BMP today stat Decrease Torsemide to 10 mg daily Add iron Screen, Ferritin, B 12, retic, and Folate to blood in the lab Needs follow up visit in 1 week documented in this encounter Plan of Treatment Upcoming Encounters Date Type Department Care Team (Late st Contact Info) Description 08/22/2023 11:20 AM EST Office Visit Family Practice [address] [place] [address] [address] [place] [address] Florentin Calvo DO [address] [place] [address] 09/02/2023 2:30 PM EST [facility] [address] [address] Michelle Hurt, RN 132 [facility] [place] [address] 09/11/2023 3:30 PM EST Office Visit Cardiology, [facility] [address] [place] [address] Stephen Hewitt, [address] [place] [address] 09/15/2023 8:00 AM EST Appointment Cardiac Studies [facility], [place] [address] [place] [address] 10/14/2023 2:30 PM EST Office Visit Hematology/Oncology [facility] 200 [place] [address] Nereyda Metz CRNP [address] [place] [address] 10/24/2023 2:30 PM EST Office Visit Gynecology/Oncology, [place] [address] [place] [address] Vanessa Elena PA-C [address] [place] [address] 11/04/2023 11:00 AM EDT Office Visit Otolaryngology [facility] [address] [place] [address] Cheri Castillo PA-C 132 [facility] [place] [address] 12/08/2023 2:20 PM EDT Office Visit Family Practice [address] [place] [address] 293 [place] [address] Florentin Calvo, 293 [place] [address] 01/21/2024 2:40 PM EDT Office Visit Otolaryngology [facility] [address] [place] [address] Cheri Castillo PA-C [address] [place] [address] 02/17/2024 3:30 PM EDT Office Visit Nephrology, Jerri Zamora [address] [place] [address] Michelle Ivy PA-C [address] [place] [address] 06/03/2024 2:15 PM EDT Office Visit Ophthalmology, [facility] [address] [place] [address] Wilbur Benavides, DO [facility] [place] [address] 08/09/2024 1:00 PM EST Nurse Only Ancillary 65 [facility] 293 [facility], [place] [address] College, Nurse Annual Wellness Visit 65 [facility] 293 [place] [address] Scheduled Orders Name Type Priority Associated Diagnoses Orde r Schedule BASIC METABOLIC PANEL Lab Routine Abnormal renal function Expected: 08/22/2023 (Approximate), Expires: 08/19/2024 Health Maintenance Due Date Last Done Comments Hepatitis B (1 of 3 - Risk 3-dose series) 2000 TSH 09/24/2023 09/24/2022, /0 10/2022, 02/12/2022, Additional history exists Diabetic Foot Exam 10/01/2023 10/01/2022, 0 10/26/2021, 12/05/2020, Additional history exists HbA1c 02/14/2024 2023, 01/25, 08/27/2022, Additional history exists GFR 02/19/2024 08/20/2023, 07/26, 08/13/2023, Additional history exists Albumin/Creatinine Ratio 02/22/2024 023, 05/01/2022, 10/26/2021, Additional history exists Diabetic Eye Exam 05/22/2024 05/22/2023, , 05/22/2023, Additional history exists CKD PHOS USE SMARTSET 05963 08/19/202407/26, 05/01/2022, 04/03/2022, Additional history exists Depression Screening 08/19/2024 08/19/2023 CKD HGB USE SMARTSET 51633 08/20/202408/20, 08/20/2023, 08/19/2023, Additional history exists DXA [...] this encounter Medical Devices Implanted Type Area Regional Manager Device Identifier Shelf Expiration Date Model / Serial / Lot Cath Thermodilution 6fr - [id number] Implanted:Qty: 1 on 01/24/2023 by Wilbur Rivera MD at [facility] [place] [email or web address] TERE [id number] 10/15/2024 [id number] / / [id number] Mirtaclip G4 - [id number] Implanted:Qty: 1 on 03/10/2023 at [facility] [employer] 11/19/2023 [id number] / / [id number] Device Watchman Flx 31mm - [id number] Implanted:Qty: 1 on 07/31/2023 by Wilbur Rivera MD at [facility] [employer] : INTRV CARD [id number] 12/02/2025 [id number] / [id number] documented as of this encounter Results * (ABNORMAL) BASIC METABOLIC PANEL (08/20/2023 11:38 AM EST) BUN 75(H) 6 - 20 mg/dL 08/20/2023 12:33 PM EST [facility] [place] 57-10 Creatinine 2.5(H) 0.5 - 1.0 mg/dL 08/20/2023 12:33 PM EST [facility] [place] [facility]10 Estimated Glomerular Filtration Rate 18(L) >=60 mL/min 08/20/2023 12:33 PM EST [facility]-10 Comment:eGFR is calculated b ased on the CKD-EPI 2020 equation Sodium 138 135 - 146 mmol/L 08/20/2023 12:33 PM EST [facility] [place] [facility]10 Potassium 4.9 3.5 - 5.1 mmol/L 08/20/2023 12:33 PM EST [facility] [place] [facility]10 Chloride 100 98 - 107 mmol/L 08/20/2023 12:33 PM EST [facility] [place] [facility] CO2 24 22 - 32 mmol/L 08/20/2023 12:33 PM EST [facility] [place] [facility] Anion Gap 14 7 - 15 mmol/L 08/20/2023 12:33 PM EST [facility] [place] [facility]10 Glucose 123(H) 70 - 120 mg/dL 08/20/2023 12:33 PM EST [facility] [place] [facility]10 Calcium 9.7 8.4 - 10.2 mg/dL 08/20/2023 12:33 PM EST [facility] [place] [facility]10 Blood Venous blood specimen / Unknown Venipuncture / Unknown 08/20/2023 11:38 AM EST 08/20/2023 11:38 AM EST Florentin Calvo DO LAB BLOOD ORDERABLES LAB[facility]ATORY [facility] 57-10 [address] [place] [address] * FOLIC ACID (08/19/2023 10:52 AM EST) Folic Acid >20.0 >4.5 ng/mL 08/20/2023 10:24 AM EST [facility]ORY [facility] Blood Venous blood specimen / Unknown Venipuncture / Unknown 08/19/2023 10:52 AM EST 08/19/2023 10:52 AM EST Florentin Calvo DO LAB BLOOD ORDERABLES Performing Organization Address City/[facility]/ZIP Co de Phone Number [facility]ATORY [facility] [address] [place] [address] * (ABNORMAL) RETICULOCYTE PANEL (08/19/2023 10:52 AM EST) Reticulocyte Percent 2.83(H) 0.80 - 1.90 % 08/20/2023 8:55 AM EST LAB[facility]ORY [facility] Absolute Reticulocyte 85.5 31.3 - 100.1 K/uL 08/20/2023 8:55 AM EST [facility] Immature Reticuloctye Fraction 16.6 2.5 - 20.6 % 08/20/2023 8:55 AM EST [facility] Reticulocyte Hemoglobin 33.3 29.7 - 37.4 pg 08/20/2023 8:55 AM EST [facility] Blood Venous blood specimen / Unknown Venipuncture / Unknown 08/19/2023 10:52 AM EST 08/19/2023 10:52 AM EST Florentin Calvo LAB BLOOD ORDERABLES Performing Organization Address City/[facility]/ZIP Co de Phone Number [facility]ORY [facility] [address] [place] [address] * (ABNORMAL) VITAMIN B12 (08/19/2023 10:52 AM EST) Vitamin B12 1,795(H) 232 - 1,245 pg/mL 08/20/2023 10:24 AM EST [facility] Blood Venous blood specimen / Unknown Venipuncture / Unknown 08/19/2023 10:52 AM EST 08/19/2023 10:52 AM EST Florentin Calvo DO LAB BLOOD ORDERABLES Performing Organization Address [facility] Co de Phone Number [facility]ATORY [facility] [address] [place] [address] * (ABNORMAL) FERRITIN (08/19/2023 10:52 AM EST) Ferritin 408(H) 13 - 150 ng/mL 08/20/2023 10:24 AM EST LABORATORY C Comment:Postmenopausal women have higher ferritin levels than pre-menopausal women. The above reference interval is based on pre-menopausal women. Blood Venous blood specimen / Unknown Venipuncture / Unknown 08/19/2023 10:52 AM EST 08/19/2023 10:52 AM EST Florentin Calvo DO LAB BLOOD ORDERABLES Performing Organization Address [facility] de Phone Number LABORATORY [facility] [address] [place] [address] * IRON SCREEN, INCLUDING TIBC (08/19/2023 10:52 AM EST) Pathologist [facility] Iron 42 33 - 151 ug/dL 08/20/2023 9:10 AM EST LABORATORY C Iron Binding Capacity 278 250 - 425 ug/dL 08/20/2023 9:10 AM EST LABORATORY C Transferrin Saturation Percent 15 15 - 55 % 08/20/2023 9:10 AM EST LABORATORY [facility] Blood Venous blood specimen / Unknown Venipuncture / Unknown 08/19/2023 10:52 AM EST 08/19/2023 10:52 AM EST Florentin Calvo DO LAB BLOOD ORDERABLES Performing Organization Address [facility] Co de Phone Number LABORATORY [facility] [address] [place] [address] documented in this encounter Visit Diagnoses Diagnosis Potassium serum increased- Primary Hyperpotassemia Potassium serum decreased Hypopotassemia Abnormal renal function Unspecified disorder of kidney and ureter Anemia Anemia, unspecified documented in this encounter Advance Directives Documents on File Type Date Recorded 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 No Code Status History Code Status Date [...] Agen t (per Health Care Power of Filling And Packing Supervisor document) Care Teams Inspector Government Property Relationship Specialty Start Date End Date Florentin Calvo DO [address] [place] [address] PCP - General Internal Medicine 03/24/13 documented as of this encounter
--- OUTSIDE RECORDS SUMMARY | 2023-08-22 20:01 | External Medical Summary | Summary of Care ---
Author Name Unknown Organization [facility] Address [address] [place] [address] Phone [phone] Care Team Providers Care Syrup Blender Name Role Phone Florentin Calvo DO Primary Care Provider [phone] Reason for Visit * Reason Onset Date Comments Test Results 08/20/202308/20 Encounter Details Date Type Department Care Team (Late st Contact Info) Description 08/20/2023 Telephone Family Practice 65 [facility] [address] [place] [address] Florentin Calvo DO [address] [place] [address] Test Results (08/20) Allergies Active Allergy Reactions Criticality Noted Date Comments Azithromycin Other (Please comment) 12/04/2021 QTC prolongation at [facility] Celecoxib Hives,Rash High 03/24/2013 Other [...] Dispensed Refills Start Date End Date Status UdexTouch Verio w/Device KitIndications:Typ e 2 diabetes mellitus with hemoglobin A1c goal of less than 7.0% ([facility]) Use up to 1 times [...] Oral Tablet (Lipitor)Indicatio ns:PVD (peripheral vascular disease) ([facility]),Type 2 diabetes mellitus with stage 3a chronic kidney disease and hypertension ([facility]) TAKE ONE TABLET BY MOUTH EVERY DAY DIRECTED 100 Tablet 3 03/31/2023 Active Ipratropium [place] 0.03 % Nasal Solution (Atrovent)Indicati ons:Chronic rhinitis [...] bedtime. 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 No-[place] can hear w/ hearing aid 03/07/2023 Are [...] Jeffries OSA - 08/20/2023 2:56 PM EST Pamela Son called in He has several questions [...] 11:20 AM EST Office Visit Family Practice [address] [place] [address] [address] [place] [address] Florentin Calvo DO [address] [place] [address] 09/02/2023 2:30 PM EST [facility] [address] [address] Michelle Hurt, RN 132 [facility] [place] [address] 09/11/2023 3:30 PM EST Office Visit Cardiology, [facility] 132 [facility] [place] [address] Stephen Hewitt, [address] [place] [address] 09/15/2023 8:00 AM EST Appointment Cardiac Studies [facility] [place] [address] [place] [address] 10/14/2023 2:30 PM EST Office Visit Hematology/Oncology [facility] 200 [facility] [address] Nereyda Metz CRNP [address] [place] [address] 10/24/2023 2:30 PM EST Office Visit Gynecology/Oncology, [place] [address] [place] [address] Vanessa Elena PA-C [address] [place] [address] 11/04/2023 11:00 AM EDT Office Visit Otolaryngology [facility] 132 [facility] [place] [address] Cheri Castillo PA-C 132 [facility] [place] [address] 12/08/2023 2:20 PM EDT Office Visit Family Practice [address] [place] [address] 293 [facility] [place] [address] Florentin Calvo, 293 [place] [address] 01/21/2024 2:40 PM EDT Office Visit Otolaryngology [facility] [address] [place] [address] Cheri Castillo PA-C [address] [place] [address] 02/17/2024 3:30 PM EDT Office Visit Nephrology, Jerri Zamora [address] [place] [address] Michelle Ivy PA-C [address] [place] [address] 06/03/2024 2:15 PM EDT Office Visit Ophthalmology, [facility] [address] [place] [address] Wilbur Benavides, DO [facility] [place] [address] 08/09/2024 1:00 PM EST Nurse Only Ancillary 65 [facility] 293 [facility], [place] [address] College, Nurse Annual Wellness Visit 65 [facility] 293 [place] [address] Scheduled Orders Name Type Priority Associated Diagnoses [...] Additional history exists CKD PHOS USE SMARTSET 29306 08/19/202407/26, 05/01/2022, 04/03/2022, Additional history exists Depression Screening 08/19/2024 08/19/2023 CKD HGB USE SMARTSET 87417 08/20/202408/20, 08/20/2023, 08/19/2023, Additional history exists DXA [...] this encounter Medical Devices Implanted Type Area Business Asst Device Identifier Shelf Expiration Date Model / Serial / Lot Cath Thermodilution 6fr - [id number] Implanted:Qty: 1 on 01/24/2023 by Wilbur Rivera MD at [facility] [employer] [employer] TERE [id number] 10/15/2024 [id number] / / [id number] Mirtaclip G4 - [id number] Implanted:Qty: 1 on 03/10/2023 at [facility] [employer] 11/19/2023 [id number] / / [id number] Device Watchman Flx 31mm - [id number] Implanted:Qty: 1 on 07/31/2023 by Wilbur Rivera MD at [facility] [employer] : INTRV CARD [id number] 12/02/2025 [id number] / [id number] documented as of this encounter Results * [...] 12:33 PM EST LAB[facility]ATORY [place] [facility] [facility]10 CO2 24 22 - 32 mmol/L [...] Florentin Calvo DO LAB BLOOD ORDERABLES LABORATORY [facility] EPIFANIO 57-10 [address] [place] [address] * FOLIC ACID (08/19/2023 10:52 AM EST) Folic Acid >20.0 >4.5 ng/mL 08/20/2023 10:24 AM EST LAB[facility]ATORY [facility] Blood Venous blood specimen / Unknown Venipuncture / Unknown 08/19/2023 10:52 AM EST 08/19/2023 10:52 AM EST Florentin Calvo DO LAB BLOOD ORDERABLES Performing Organization Address City/[facility]/ZIP Co de Phone Number LABORATORY [facility] [address] [place] [address] * (ABNORMAL) RETICULOCYTE PANEL (08/19/2023 10:52 AM [...] Calvo LAB BLOOD ORDERABLES Performing Organization Address City/[facility]/ZIP Co de Phone Number LAB[facility]ATORY [facility] [address] [place] [address] * (ABNORMAL) VITAMIN B12 (08/19/2023 10:52 AM EST) Vitamin B12 1,795(H) 232 - 1,245 pg/mL 08/20/2023 10:24 AM EST LAB[facility]ORY [facility] Blood Venous blood specimen / Unknown Venipuncture / Unknown 08/19/2023 10:52 AM EST 08/19/2023 10:52 AM EST Florentin Calvo DO LAB BLOOD ORDERABLES Performing Organization Address [facility] Co de Phone Number LABORATORY [facility] [address] [place] [address] * (ABNORMAL) FERRITIN (08/19/2023 10:52 AM EST) Ferritin 408(H) 13 - 150 ng/mL 08/20/2023 10:24 AM EST LABORATORY C Comment:Postmenopausal women have higher ferritin levels than pre-menopausal women. The above reference interval is based on pre-menopausal women. Blood Venous blood specimen / Unknown Venipuncture / Unknown 08/19/2023 10:52 AM EST 08/19/2023 10:52 AM EST Florentin Calvo DO LAB BLOOD ORDERABLES Performing Organization Address [facility] de Phone Number LABORATORY [facility] [address] [place] [address] * IRON SCREEN, INCLUDING TIBC (08/19/2023 10:52 AM EST) Pathologist [facility] Iron 42 33 - 151 ug/dL 08/20/2023 9:10 AM EST LABORATORY C Iron Binding Capacity 278 250 - 425 ug/dL 08/20/2023 9:10 AM EST LABORATORY C Transferrin Saturation Percent 15 15 - 55 % 08/20/2023 9:10 AM EST LABORATORY [facility] Blood Venous blood specimen / Unknown Venipuncture / Unknown 08/19/2023 10:52 AM EST 08/19/2023 10:52 AM EST Florentin Calvo DO LAB BLOOD ORDERABLES Performing Organization Address [facility] Co de Phone Number LABORATORY [facility] [address] [place] [address] documented in this encounter Visit Diagnoses Diagnosis Potassium serum increased- Primary Hyperpotassemia Potassium serum decreased Hypopotassemia Abnormal renal function Unspecified disorder of kidney and ureter Anemia Anemia, unspecified documented in this encounter Advance Directives Documents on File Type Date Recorded Patient Backer Up Expl anation Advance Directives and Living Will 11/29/2022 ADVANCE DIRECTIVE / LIVING WILL Power of Transition Coach 11/29/2022 POWER OF A TTORNEY Advance Directives and Living Will 10/24/2014 ADVANCE DIRECTIVE / LIVING WILL Power of Transition Coach 10/24/2014 POWER OF A TTORNEY Latest [...] the patient have Health Care Power of Transition Coach? No Code Status History Code Status Date [...] Agen t (per Health Care Power of Transition Coach document) Care Teams Syrup Blender Relationship Specialty Start Date End Date Florentin Calvo DO [address] [place] [address] PCP - General Internal Medicine 03/24/13 documented as of this encounter
--- OUTSIDE RECORDS SUMMARY | 2023-08-22 20:01 | External Medical Summary | Summary of Care ---
Author Name Unknown Organization [facility] Address [address] [place] [address] Phone [phone] Care Team Providers Care Piano Mechanic Apprentice Name Role Phone Florentin Calvo DO Primary Care Provider [phone] Reason for Visit * Reason Onset Date Comments Test Results 08/20/202308/20 Encounter Details Date Type Department Care Team (Late st Contact Info) Description 08/20/2023 Telephone Family Practice 65 [facility] [address] [place] [address] Florentin Calvo DO [address] [place] [address] Test Results (08/20) Allergies Active Allergy Reactions Criticality Noted Date Comments Azithromycin Other (Please comment) 12/04/2021 QTC prolongation at [facility] Celecoxib Hives,Rash High 03/24/2013 Other [...] Dispensed Refills Start Date End Date Status Black LotusTouch Verio w/Device KitIndications:Typ e 2 diabetes mellitus [...] Oral Tablet (Lipitor)Indicatio ns:PVD (peripheral vascular disease) ([facility]),Type 2 diabetes mellitus with stage 3a chronic kidney disease and hypertension ([facility]) TAKE ONE TABLET BY MOUTH EVERY DAY DIRECTED 100 Tablet 3 03/31/2023 Active Ipratropium [place] 0.03 % Nasal Solution (Atrovent)Indicati ons:Chronic rhinitis [...] bedtime. 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 No-[place] can hear w/ hearing aid 03/07/2023 Are [...] 11:20 AM EST Office Visit Family Practice [address] [place] [address] [address] [place] [address] Florentin Calvo DO [address] [place] [address] 09/02/2023 2:30 PM EST Home Visit [facility] 132 [facility] [place] [address] Michelle Hurt RN 132 [facility] [place] [address] 09/11/2023 3:30 PM EST Office Visit Cardiology, [facility] [address] [place] [address] Stephen Hewitt DO [address] [place] [address] 09/15/2023 8:00 AM EST Appointment Cardiac Studies [place] [address] [place] [address] 10/14/2023 2:30 PM EST Office Visit Hematology/Oncology [facility] 200 [facility] [place] [address] Nereyda Metz CRNP [address] [place] [address] 10/24/2023 2:30 PM EST Office Visit Gynecology/Oncology, [place] [address] [place] [address] Vanessa Elena PA-C [address] [place] [address] 11/04/2023 11:00 AM EDT Office Visit Otolaryngology [facility] 132 [facility] [place] [address] Cheri Castillo PA-C [facility] [address] 12/08/2023 2:20 PM EDT Office Visit Family Practice [address] [place] [address] [address] [place] [address] Florentin Calvo DO [address] [place] [address] 01/21/2024 2:40 PM EDT Office Visit Otolaryngology [facility] [address] [place] [address] Cheri Castillo PA-C 132 [facility] [place] [address] 02/17/2024 3:30 PM EDT Office Visit Nephrology, [facility] [address] [place] [address] Michelle Ivy PA-C 200 [facility] [place] [address] 06/03/2024 2:15 PM EDT Office Visit Ophthalmology, [facility] 132 [facility] [place] [address] Wilbur Benavides, DO [address] [place] [address] 08/09/2024 1:00 PM EST Nurse Only Ancillary 65 [facility] 293 [facility], [place] [address] College, Nurse Annual Wellness Visit 65 [facility] 293 [facility], [place] [address] Scheduled Orders Name Type Priority Associated Diagnoses [...] Additional history exists CKD PHOS USE SMARTSET 51456 08/19/202407/26, 05/01/2022, 04/03/2022, Additional history exists Depression Screening 08/19/2024 08/19/2023 CKD HGB USE SMARTSET 00774 08/20/202408/20, 08/20/2023, 08/19/2023, Additional history exists DXA [...] this encounter Medical Devices Implanted Type Area Incinerator Plant Laborer Device Identifier Shelf Expiration Date Model / Serial / Lot Cath Thermodilution 6fr - [id number] Implanted:Qty: 1 on 01/24/2023 by Wilbur Rivera MD at [facility] [employer] T[employer] [id number] 10/15/2024 [id number] / / [id number] Mirtaclip G4 - [id number] Implanted:Qty: 1 on 03/10/2023 at [facility] [employer] 11/19/2023 [id number] / / [id number] Device Watchman Flx 31mm - [id number] Implanted:Qty: 1 on 07/31/2023 by Wilbur Rivera MD at [facility] [employer] : INTRV CARD [id number] 12/02/2025 [id number] documented as of this encounter Results * [...] Calvo DO LAB BLOOD ORDERABLES LABORATORY [place] [facility] [place] [address] * FOLIC ACID (08/19/2023 10:52 AM EST) Folic Acid >20.0 >4.5 ng/mL 08/20/2023 10:24 AM EST LAB[facility]ATORY [facility] Blood Venous blood specimen / Unknown Venipuncture / Unknown 08/19/2023 10:52 AM EST 08/19/2023 10:52 AM EST Florentin Calvo DO LAB BLOOD ORDERABLES LAB[facility]ATORY [facility] [address] [place] [address] * (ABNORMAL) RETICULOCYTE PANEL (08/19/2023 10:52 AM [...] DO LAB BLOOD ORDERABLES Performing Organization Address City/[facility]/ZIP Co de Phone Number LABORATORY [facility] [address] [place] [address] * (ABNORMAL) VITAMIN B12 (08/19/2023 10:52 AM EST) Vitamin B12 1,795(H) 232 - 1,245 pg/mL 08/20/2023 10:24 AM EST LAB[facility]ATORY [facility] Blood Venous blood specimen / Unknown Venipuncture / Unknown 08/19/2023 10:52 AM EST 08/19/2023 10:52 AM EST Florentin Calvo DO LAB BLOOD ORDERABLES LAB[facility]ATORY [facility] [address] [place] [address] * (ABNORMAL) FERRITIN (08/19/2023 10:52 AM EST) Ferritin 408(H) 13 - 150 ng/mL 08/20/2023 10:24 AM EST LABORATORY [facility] Comment:Postmenopausal women have higher ferritin levels than pre-menopausal women. The above reference interval is based on pre-menopausal women. Blood Venous blood specimen / Unknown Venipuncture / Unknown 08/19/2023 10:52 AM EST 08/19/2023 10:52 AM EST Florentin Calvo DO LAB BLOOD ORDERABLES Performing Organization Address [facility] de Phone Number LABORATORY [facility] [address] [place] [address] * IRON SCREEN, INCLUDING TIBC (08/19/2023 10:52 AM EST) Iron 42 33 - 151 ug/dL 08/20/2023 9:10 AM EST LABORATORY [facility] Iron Binding Capacity 278 250 - 425 ug/dL 08/20/2023 9:10 AM EST LABORATORY C Transferrin Saturation Percent 15 15 - 55 % 08/20/2023 9:10 AM EST LABORATORY [facility] Blood Venous blood specimen / Unknown Venipuncture / Unknown 08/19/2023 10:52 AM EST 08/19/2023 10:52 AM EST Florentin Calvo DO LAB BLOOD ORDERABLES Performing Organization Address City/[facility] Co de Phone Number LABORATORY [facility] [address] [place] [address] documented in this encounter Visit Diagnoses Diagnosis Potassium serum increased- Primary Hyperpotassemia Potassium serum decreased Hypopotassemia Abnormal renal function Unspecified disorder of kidney and ureter Anemia Anemia, unspecified documented in this encounter Advance Directives Documents on File Type Date Recorded Patient Carriage Operator Expl anation Advance Directives and Living Will 11/29/2022 ADVANCE DIRECTIVE / LIVING WILL Power of Paste Maker 11/29/2022 POWER OF A TTORNEY Advance Directives and Living Will 10/24/2014 ADVANCE DIRECTIVE / LIVING WILL Power of Paste Maker 10/24/2014 POWER OF A TTORNEY Latest [...] the patient have Health Care Power of Paste Maker? No Code Status History Code Status Date [...] Agen t (per Health Care Power of Paste Maker document) Care Teams Piano Mechanic Apprentice Relationship Specialty Start Date End Date Florentin Calvo DO [address] [place] [address] PCP - General Internal Medicine 03/24/13 documented as of this encounter
--- OUTSIDE RECORDS SUMMARY | 2023-08-22 20:01 | External Medical Summary | Summary of Care ---
Author Name Unknown Organization [facility] Address [address] [place] [address] Phone [phone] Care Team Providers Care Valve Seater Operator Name Role Phone Florentin Calvo DO Primary Care Provider [phone] Reason for Visit * Reason Onset Date Comments Test Results 08/20/202308/20 Encounter Details Date Type Department Care Team (Late st Contact Info) Description 08/20/2023 Telephone Family Practice 65 [facility] [address] [place] [address] Florentin Calvo DO [address] [place] [address] Test Results (08/20) Allergies Active [...] Dispensed Refills Start Date End Date Status Laurus EnergyTouch Verio w/Device KitIndications:Typ e 2 diabetes mellitus [...] Tablet (Lipitor)Indicatio ns:PVD (peripheral vascular disease) ([facility]),Type 2 diabetes mellitus with stage 3a chronic kidney disease and hypertension ([facility]) TAKE ONE TABLET BY MOUTH EVERY DAY DIRECTED 100 Tablet 3 03/31/2023 Active Ipratropium [place] 0.03 % Nasal Solution (Atrovent)Indicati ons:Chronic rhinitis [...] bedtime. 90 Tablet 3 05/16/2023 Active Tiotropium [place]-Olodaterol 2.5-2.5 MCG/ACT Inhalation Aerosol Solution (Stiolto Respimat) [...] mitral valve clip implantation 03/06/2023 Atherosclerosis of [place] 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 02/13/2023 [...] Obstructive sleep apnea of adult 09/09/2014 Overview: [employer] Last Assessment & Plan: Now just using [...] MCG/0.3 mL, 12 YRS AND ABOVE, IM (Ethertronics-Comirnat) 06/09/2023 Covid-19, Mrna, Lnp-s, Pf, B ivalent, [...] or do you have serious difficulty hearing? No-[place] can hear w/ hearing aid 03/07/2023 Are [...] 11:20 AM EST Office Visit Family Practice [address] [place] [address] [address] [place] [address] Florentin Calvo DO [address] [place] [address] 09/02/2023 2:30 PM EST Home Visit [facility] [address] [address] Michelle Hurt, RN 132 [facility] [place] [address] 09/11/2023 3:30 PM EST Office Visit Cardiology, [facility] 132 [facility] [place] [address] Stephen Hewitt, [address] [place] [address] 09/15/2023 8:00 AM EST Appointment Cardiac Studies [facility] [place] [address] [place] [address] 10/14/2023 2:30 PM EST Office Visit Hematology/Oncology [facility] 200 [place] [address] Nereyda Metz CRNP [address] [place] [address] 10/24/2023 2:30 PM EST Office Visit Gynecology/Oncology, [place] [address] [place] [address] Vanessa Elena PA-C [address] [place] [address] 11/04/2023 11:00 AM EDT Office Visit Otolaryngology [facility] 132 [facility] [place] [address] Cheri Castillo PA-C 132 [facility] [place] [address] 12/08/2023 2:20 PM EDT Office Visit Family Practice [address] [place] [address] 293 [facility] [place] [address] Florentin Calvo, 293 [place] [address] 01/21/2024 2:40 PM EDT Office Visit Otolaryngology [facility] [address] [place] [address] Cheri Castillo PA-C 132 [place] [address] 02/17/2024 3:30 PM EDT Office Visit Nephrology, [facility] [address] [place] [address] Michelle Ivy PA-C [address] [place] [address] 06/03/2024 2:15 PM EDT Office Visit Ophthalmology, [facility] [address] [place] [address] Wilbur Benavides, DO [address] [facility] [place] [address] 08/09/2024 1:00 PM EST Nurse Only Ancillary 65 [facility] 293 [facility], [place] [address] College, Nurse Annual Wellness Visit 65 [facility] 293 [facility] [place] [address] Scheduled Orders Name Type Priority Associated Diagnoses [...] Additional history exists CKD PHOS USE SMARTSET 60783 08/19/202407/26, 05/01/2022, 04/03/2022, Additional history exists Depression Screening 08/19/2024 08/19/2023 CKD HGB USE SMARTSET 67372 08/20/202408/20, 08/20/2023, 08/19/2023, Additional history exists DXA [...] this encounter Medical Devices Implanted Type Area Sign Board Erector Device Identifier Shelf Expiration Date Model / Serial / Lot Cath Thermodilution 6fr - [id number] Implanted:Qty: 1 on 01/24/2023 by Wilbur Rivera MD at [facility] [employer] [id number] 10/15/2024 [id number] / / [id number] Mirtaclip G4 - [id number] Implanted:Qty: 1 on 03/10/2023 at [facility] [employer] 11/19/2023 [id number] / / [id number] Device Watchman Flx 31mm - [id number] Implanted:Qty: 1 on 07/31/2023 by Wilbur Rivera MD at [facility] [employer] : INTRV CARD [id number] 12/02/2025 [id number] / [id number] documented as of this encounter Results * [...] Calvo DO LAB BLOOD ORDERABLES LABORATORY [facility] EPIFANIO 57-10 [address] [place] [address] * FOLIC ACID (08/19/2023 10:52 AM EST) Folic Acid >20.0 >4.5 ng/mL 08/20/2023 10:24 AM EST LABORATORY [facility] Blood Venous blood specimen / Unknown Venipuncture / Unknown 08/19/2023 10:52 AM EST 08/19/2023 10:52 AM EST Florentin Calvo DO LAB BLOOD ORDERABLES Performing Organization Address City/[facility]/ZIP Co de Phone Number LABORATORY [facility] [address] [place] [address] * (ABNORMAL) RETICULOCYTE PANEL (08/19/2023 10:52 AM [...] Calvo LAB BLOOD ORDERABLES Performing Organization Address City/[facility]/ZIP Co de Phone Number LABORATORY [facility] [address] [place] [address] * (ABNORMAL) VITAMIN B12 (08/19/2023 10:52 AM EST) Vitamin B12 1,795(H) 232 - 1,245 pg/mL 08/20/2023 10:24 AM EST LAB[facility]ATORY [facility] Blood Venous blood specimen / Unknown Venipuncture / Unknown 08/19/2023 10:52 AM EST 08/19/2023 10:52 AM EST Florentin Calvo DO LAB BLOOD ORDERABLES Performing Organization Address [facility] Co de Phone Number LABORATORY [facility] [address] [place] [address] * (ABNORMAL) FERRITIN (08/19/2023 10:52 AM EST) Ferritin 408(H) 13 - 150 ng/mL 08/20/2023 10:24 AM EST LABORATORY C Comment:Postmenopausal women have higher ferritin levels than pre-menopausal women. The above reference interval is based on pre-menopausal women. Blood Venous blood specimen / Unknown Venipuncture / Unknown 08/19/2023 10:52 AM EST 08/19/2023 10:52 AM EST Florentin Calvo DO LAB BLOOD ORDERABLES Performing Organization Address [facility] de Phone Number LABORATORY [facility] [address] [place] [address] * IRON SCREEN, INCLUDING TIBC (08/19/2023 10:52 AM EST) Pathologist [facility] Iron 42 33 - 151 ug/dL 08/20/2023 9:10 AM EST LABORATORY C Iron Binding Capacity 278 250 - 425 ug/dL 08/20/2023 9:10 AM EST LABORATORY C Transferrin Saturation Percent 15 15 - 55 % 08/20/2023 9:10 AM EST LABORATORY [facility] Blood Venous blood specimen / Unknown Venipuncture / Unknown 08/19/2023 10:52 AM EST 08/19/2023 10:52 AM EST Florentin Calvo DO LAB BLOOD ORDERABLES Performing Organization Address [facility] Co de Phone Number LABORATORY [facility] [address] [place] [address] documented in this encounter Visit Diagnoses Diagnosis Potassium serum increased- Primary Hyperpotassemia Potassium serum decreased Hypopotassemia Abnormal renal function Unspecified disorder of kidney and ureter Anemia Anemia, unspecified documented in this encounter Advance Directives Documents on File Type Date Recorded Patient Manager Pharmacy Expl anation Advance Directives and Living Will 11/29/2022 ADVANCE DIRECTIVE / LIVING WILL Power of Air Export Logistics Manager 11/29/2022 POWER OF A TTORNEY Advance Directives and Living Will 10/24/2014 ADVANCE DIRECTIVE / LIVING WILL Power of Air Export Logistics Manager 10/24/2014 POWER OF A TTORNEY Latest [...] the patient have Health Care Power of Air Export Logistics Manager? No Code Status History Code Status [...] Agen t (per Health Care Power of Air Export Logistics Manager document) Care Teams Valve Seater Operator Relationship Specialty Start Date End Date Florentin Calvo DO [address] [place] [address] PCP - General Internal Medicine 03/24/13 documented as of this encounter
--- OUTSIDE RECORDS SUMMARY | 2023-08-22 20:01 | External Medical Summary | Summary of Care ---
Author Name Unknown Organization [facility] Address [address] [place] [address] Phone [phone] Care Team Providers Care Slide Developer Name Role Phone Florentin Calvo DO Primary Care Provider Reason for Visit * Reason Onset Date Comments Test Results 08/20/202308/20 Encounter Details Date Type Department Care Team (Late st Contact Info) Description 08/20/2023 Telephone Family Practice 65 [facility] [address] [place] [address] Florentin Calvo DO 293 [place] [address] Test Results (08/20) Allergies Active [...] Dispensed Refills Start Date End Date Status psicofxpTouch Verio w/Device KitIndications:Typ e 2 diabetes mellitus [...] DIRECTED 100 Tablet 3 03/31/2023 Active Ipratropium Platter 0.03 % Nasal Solution (Atrovent)Indicati ons:Chronic rhinitis [...] bedtime. 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 No-[place]FOR[place] can hear w/ hearing aid 03/07/2023 Are [...] Encounter - Hilda Awad LPN - 08/20/2023 3:13 PM EST Patient is aware and will comply. Thank you * Telephone Encounter - Grace Jeffries OSA - 08/20/2023 2:56 PM EST Diaclaudio Son called in He has several questions [...] 11:20 AM EST Office Visit Family Practice 65 [facility] [place] [facility] [address] Florentin Calvo DO 293 [facility] [address] 09/02/2023 2:30 PM EST Home Visit [facility] 132 [facility] [place] [address] Michelle Hurt, RN [address] [place] [address] 09/11/2023 3:30 PM EST Office Visit Cardiology, [facility] 132 [facility] [place] [address] Stephen Hewitt, 132 [facility] [place] [address] 09/15/2023 8:00 AM EST Appointment Cardiac Studies [facility], [place] [address] [place] [address] 10/14/2023 2:30 PM EST Office Visit Hematology/Oncology [facility] [address] [place] [address] Neredya Metz CRNP [address] [place] [address] 10/24/2023 2:30 PM EST Office Visit Gynecology/Oncology, [place] [address] [place] [address] Vanessa Elena PA-C [address] [place] [address] 11/04/2023 11:00 AM EDT Office Visit Otolaryngology [facility] 132 [facility] [place] [address] Cheri Castillo PA-C 132 [facility] [place] [address] 12/08/2023 2:20 PM EDT Office Visit Family Practice [address] [place] [address] 293 [place] [address] Florentin Calvo, 293 [facility] [place] [address] 01/21/2024 2:40 PM EDT Office Visit Otolaryngology [facility] 132 [facility] [place] [address] Cheri Castillo PA-C 132 [facility] [place] [address] 02/17/2024 3:30 PM EDT Office Visit Nephrology, [facility] 200 [facility] [place] [address] ZemaitisMichelle PA-C 200 [facility] [place] [address] 06/03/2024 2:15 PM EDT Office Visit Ophthalmology, [facility] 132 [facility] [place] [address] Wilbur Benavides, 21 [facility] [place] [address] 08/09/2024 1:00 PM EST Nurse Only Ancillary 65 [facility] 293 [place] [address] College, Nurse Annual Wellness Visit [address] [place] [address] Scheduled Orders Name Type Priority Associated Diagnoses Orde r Schedule BASIC METABOLIC PANEL Lab Routine Abnormal renal function Expected: 08/22/2023 (Approximate), Expires: 08/19/2024 Health Maintenance Due Date Last Done Comments Hepatitis B (1 of 3 - Risk 3-dose series) 2000 TSH 09/24/2023 09/24/2022, 0 10/2022, 02/12/2022, Additional history exists Diabetic Foot Exam 10/01/2023 10/01/2022, 0 10/26/2021, 12/05/2020, Additional history exists HbA1c 02/14/2024 2023, 01/25, 08/27/2022, Additional history exists GFR 02/19/2024 08/20/2023, 07/26, 08/13/2023, Additional history exists Albumin/Creatinine Ratio 02/22/2024 023, 05/01/2022, 10/26/2021, Additional history exists Diabetic Eye Exam 05/22/2024 05/22/2023, , 05/22/2023, Additional history exists CKD PHOS USE SMARTSET 99274 08/19/202407/26, 05/01/2022, 04/03/2022, Additional history exists Depression Screening 08/19/2024 08/19/2023 CKD HGB USE SMARTSET 82876 08/20/202408/20, 08/20/2023, 08/19/2023, Additional history exists DXA [...] this encounter Medical Devices Implanted Type Area Director Of Operations Support Device Identifier Shelf Expiration Date Model / Serial / Lot Cath Thermodilution 6fr - [id number] Implanted:Qty: 1 on 01/24/2023 by Wilbur Rivera MD at [facility] [employer] [id number] 10/15/2024 [id number] / / [id number] Mirtaclip G4 - [id number] Implanted:Qty: 1 on 03/10/2023 at [facility] [employer] 11/19/2023 [id number] / / [id number] Device Watchman Flx 31mm - [id number] Implanted:Qty: 1 on 07/31/2023 by Wilbur Rivera MD at [facility] [employer] : INTRV CARD [id number] 12/02/2025 [id number] documented as of this encounter Results * [...] Florentin Calvo DO LAB BLOOD ORDERABLES [facility] [place] [address] * FOLIC ACID (08/19/2023 10:52 AM EST) Folic Acid >20.0 >4.5 ng/mL 08/20/2023 10:24 AM EST LAB[facility]ATORY [facility] Blood Venous blood specimen / Unknown Venipuncture / Unknown 08/19/2023 10:52 AM EST 08/19/2023 10:52 AM EST Florentin Calvo DO LAB BLOOD ORDERABLES Performing Organization Address [facility] de Phone Number LAB[facility]ATORY [facility] [address] [place] [address] * (ABNORMAL) RETICULOCYTE PANEL (08/19/2023 10:52 AM [...] DO LAB BLOOD ORDERABLES Performing Organization Address City/[facility]/ZIP Co de Phone Number LABORATORY [facility] [address] [place] [address] * (ABNORMAL) VITAMIN B12 (08/19/2023 10:52 AM EST) Vitamin B12 1,795(H) 232 - 1,245 pg/mL 08/20/2023 10:24 AM EST LAB[facility]ATORY [facility] Blood Venous blood specimen / Unknown Venipuncture / Unknown 08/19/2023 10:52 AM EST 08/19/2023 10:52 AM EST Florentin Calvo DO LAB BLOOD ORDERABLES Performing Organization Address City/[facility]/ZIP Co de Phone Number LABORATORY [place] [address] [place] [address] * (ABNORMAL) FERRITIN (08/19/2023 10:52 AM EST) Ferritin 408(H) 13 - 150 ng/mL 08/20/2023 10:24 AM EST LABORATORY C Comment:Postmenopausal women have higher ferritin levels than pre-menopausal women. The above reference interval is based on pre-menopausal women. Blood Venous blood specimen / Unknown Venipuncture / Unknown 08/19/2023 10:52 AM EST 08/19/2023 10:52 AM EST Florentin Calvo DO LAB BLOOD ORDERABLES Performing Organization Address [facility] Co de Phone Number LABORATORY [place] [address] [place] [address] * IRON SCREEN, INCLUDING TIBC (08/19/2023 10:52 AM EST) Iron 42 33 - 151 ug/dL 08/20/2023 9:10 AM EST LABORATORY C Iron Binding Capacity 278 250 - 425 ug/dL 08/20/2023 9:10 AM EST LABORATORY C Transferrin Saturation Percent 15 15 - 55 % 08/20/2023 9:10 AM EST LAB[facility]ATORY [facility] Blood Venous blood specimen / Unknown Venipuncture / Unknown 08/19/2023 10:52 AM EST 08/19/2023 10:52 AM EST Florentin A Sulman DO LAB BLOOD ORDERABLES [facility]ORY [facility] [address] [place] [address] documented in this encounter Visit Diagnoses Diagnosis Potassium serum increased- Primary Hyperpotassemia Potassium serum decreased Hypopotassemia Abnormal renal function Unspecified disorder of kidney and ureter Anemia Anemia, unspecified documented in this encounter Advance Directives Documents on File Type Date Recorded Patient Automotive Manager Expl anation Advance Directives and Living Will 11/29/2022 ADVANCE DIRECTIVE / LIVING WILL Power of Wire Machine Cutter 11/29/2022 POWER OF A TTORNEY Advance Directives and Living Will 10/24/2014 ADVANCE DIRECTIVE / LIVING WILL Power of Wire Machine Cutter 10/24/2014 POWER OF A TTORNEY Latest [...] patient have Health Care Power of Wire Machine Cutter? No Code Status History Code Status Date [...] File Name Relationship Healthcare Agent [facility] p Communication Bright Yuval Adult Child Health Care Agen t (per Health Care Power of Wire Machine Cutter document) Care Teams Slide Developer Relationship Specialty Start Date End Date Florentin Calvo DO 293 [place] [address] PCP - General Internal Medicine 03/24/13 documented as of this encounter
--- OUTSIDE RECORDS SUMMARY | 2023-08-22 20:01 | External Medical Summary | Summary of Care ---
Author Name Unknown Organization [facility] Address [address] [place] [address] Phone [phone] Care Team Providers Care Keno Attendant Name Role Phone Florentin Calvo DO Primary Care Provider [phone] Reason for Visit * Reason Onset Date Comments Test Results 08/20/202308/20 Encounter Details Date Type Department Care Team (Late st Contact Info) Description 08/20/2023 Telephone Family Practice 65 [facility] 293 [place] [address] Florentin Calvo DO [address] [place] [address] Test Results (08/20) Allergies Active [...] Dispensed Refills Start Date End Date Status CodotaTouch Verio w/Device KitIndications:Typ e 2 diabetes mellitus [...] stage 3a chronic kidney disease and hypertension ([facility]) TAKE ONE TABLET BY MOUTH EVERY DAY DIRECTED 100 Tablet 3 03/31/2023 Active Ipratropium Carmel 0.03 % Nasal Solution (Atrovent)Indicati ons:Chronic rhinitis [...] bedtime. 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 No-FORT MOJ[place] can hear w/ hearing aid 03/07/2023 Are [...] 11:20 AM EST Office Visit Family Practice [address] [place] [address] 293 [place] [address] Florentin Calvo DO 293 [place] [address] 09/02/2023 2:30 PM EST Home Visit [facility] 132 [facility] [place] [address] Michelle Hurt RN 132 [facility] [place] [address] 09/11/2023 3:30 PM EST Office Visit Cardiology, [facility] [address] [place] [address] Stephen Hewitt DO [address] [place] [address] 09/15/2023 8:00 AM EST Appointment Cardiac Studies [place] [address] [place] [address] 10/14/2023 2:30 PM EST Office Visit Hematology/Oncology [facility] 200 [facility] [place] [address] Nereyda Metz CRNP 400 [place] [address] 10/24/2023 2:30 PM EST Office Visit Gynecology/Oncology, [place] [address] [place] [address] Vanessa Elena PA-C [address] [place] [address] 11/04/2023 11:00 AM EDT Office Visit Otolaryngology [facility] 132 [facility] [place] [address] Cheri Castillo PA-C 132 [facility] [address] 12/08/2023 2:20 PM EDT Office Visit Family Practice [address] [place] [address] 293 [place] [address] Florentin Calvo DO 293 [place] [address] 01/21/2024 2:40 PM EDT Office Visit Otolaryngology [facility] [address] [place] [address] Cheri Castillo PA-C 132 [facility] [place] [address] 02/17/2024 3:30 PM EDT Office Visit Nephrology, [facility] 200 [address] [place] [address] Michelle Ivy PA-C 200 [facility] [place] [address] 06/03/2024 2:15 PM EDT Office Visit Ophthalmology, [facility] 132 [facility] [place] [address] Wilbur Benavides, DO [address] [address] [place] [address] 08/09/2024 1:00 PM EST Nurse Only Ancillary 65 [facility] 293 [facility], [place] [address] College, Nurse Annual Wellness Visit 65 [facility] 293 [facility], [place] [address] Scheduled Orders Name Type Priority Associated Diagnoses [...] Additional history exists CKD PHOS USE SMARTSET 80256 08/19/202407/26, 05/01/2022, 04/03/2022, Additional history exists Depression Screening 08/19/2024 08/19/2023 CKD HGB USE SMARTSET 95082 08/20/202408/20, 08/20/2023, 08/19/2023, Additional history exists DXA [...] this encounter Medical Devices Implanted Type Area Freight Conductor Device Identifier Shelf Expiration Date Model / Serial / Lot Cath Thermodilution 6fr - [id number] Implanted:Qty: 1 on 01/24/2023 by Wilbur Rivera MD at [facility] [employer] [id number] 10/15/2024 [id number] / / [id number] Mirtaclip G4 - [id number] Implanted:Qty: 1 on 03/10/2023 at [facility] [employer] 11/19/2023 [id number] / / [id number] Device Watchman Flx 31mm - [id number] Implanted:Qty: 1 on 07/31/2023 by Wilbur Rivera MD at [facility] [employer] : INTRV CARD [id number] 12/02/2025 [id number] documented as of this encounter Results * [...] [place] 57[address] [place] [address] * FOLIC ACID (08/19/2023 10:52 AM EST) Folic Acid >20.0 >4.5 ng/mL 08/20/2023 10:24 AM EST LAB[facility]ATORY [facility] Blood Venous blood specimen / Unknown Venipuncture / Unknown 08/19/2023 10:52 AM EST 08/19/2023 10:52 AM EST Florentin Calvo DO LAB BLOOD ORDERABLES LAB[facility]ATORY [facility] [address] [place] [address] * (ABNORMAL) RETICULOCYTE PANEL (08/19/2023 10:52 AM [...] DO LAB BLOOD ORDERABLES Performing Organization Address City/[facility]/ZIP Co de Phone Number LABORATORY [facility] [address] [place] [address] * (ABNORMAL) VITAMIN B12 (08/19/2023 10:52 AM EST) Vitamin B12 1,795(H) 232 - 1,245 pg/mL 08/20/2023 10:24 AM EST LAB[facility]ATORY [facility] Blood Venous blood specimen / Unknown Venipuncture / Unknown 08/19/2023 10:52 AM EST 08/19/2023 10:52 AM EST Florentin Calvo DO LAB BLOOD ORDERABLES LAB[facility]ORY [facility] [address] [place] [address] * (ABNORMAL) FERRITIN (08/19/2023 10:52 AM EST) Ferritin 408(H) 13 - 150 ng/mL 08/20/2023 10:24 AM EST LABORATORY [facility] Comment:Postmenopausal women have higher ferritin levels than pre-menopausal women. The above reference interval is based on pre-menopausal women. Blood Venous blood specimen / Unknown Venipuncture / Unknown 08/19/2023 10:52 AM EST 08/19/2023 10:52 AM EST Florentin Calvo DO LAB BLOOD ORDERABLES Performing Organization Address [facility] de Phone Number LABORATORY [facility] [address] [place] [address] * IRON SCREEN, INCLUDING TIBC (08/19/2023 10:52 AM EST) Iron 42 33 - 151 ug/dL 08/20/2023 9:10 AM EST LABORATORY [facility] Iron Binding Capacity 278 250 - 425 ug/dL 08/20/2023 9:10 AM EST LABORATORY C Transferrin Saturation Percent 15 15 - 55 % 08/20/2023 9:10 AM EST LABORATORY [facility] Blood Venous blood specimen / Unknown Venipuncture / Unknown 08/19/2023 10:52 AM EST 08/19/2023 10:52 AM EST Florentin Calvo DO LAB BLOOD ORDERABLES Performing Organization Address City/[facility] Co de Phone Number LABORATORY [facility] [address] [place] [address] documented in this encounter Visit Diagnoses Diagnosis Potassium serum increased- Primary Hyperpotassemia Potassium serum decreased Hypopotassemia Abnormal renal function Unspecified disorder of kidney and ureter Anemia Anemia, unspecified documented in this encounter Advance Directives Documents on File Type Date Recorded 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 No Code Status History Code [...] Agen t (per Health Care Power of Leather Production Machine Operator document) Care Teams Keno Attendant Relationship Specialty Start Date End Date Florentin Calvo DO [address] [place] [address] PCP - General Internal Medicine 03/24/13 documented as of this encounter
--- OUTSIDE RECORDS SUMMARY | 2023-08-22 20:02 | External Medical Summary ---
Author Name Unknown Address Unknown Organization K01:LABORATORY C - [address] [facility] [address] Laboratory Report Ordering Provider Test Date Status ANTONIO EDMONDS 08/19/2023 10:52:31 Final Observation Date Value Abnormality Reference (Units ) Status BUN 08/19/2023 10:52:31 70 Above high normal 6-20 (mg/dL) Final Creatinine 08/19/2023 10:52:31 2.5 Above high normal 0.5-1.0 (mg/dL) Final Glomerular filtration rate/1.73 sq M.predicted [Volume Rate/Area] in Serum, Plasma or Blood by Creatinine-based formula (CKD-EPI) 08/19/2023 10:52:31 19 Below low normal >=60 (mL/min) Final eGFR is calculated based on the CKD-EPI 2020 equation SODIUM 08/19/2023 10:52:31 140 135-146 (m mol/L) Final Potassium 08/19/2023 10:52:31 5.5 Above high normal 3. 5-5.1 (mmol/L) Final Cl 08/19/2023 10:52:31 103 98-107 (mm ol/L) Final CO2 08/19/2023 10:52:31 24 22-32 (mmo l/L) Final Anion gap 08/19/2023 10:52:31 13 7-15 (mmol /L) Final Glucose 08/19/2023 10:52:31 113 70-120 (mg /dL) Final Albumin 08/19/2023 10:52:31 4.1 3.8-5.0 (g /dL) Final AST (Aspartate aminotransferase) 08/19/2023 10:52:31 49 Above high normal 10-35 (U/L) Final Alk Phos 08/19/2023 10:52:31 225 Above high normal 35 -130 (U/L) Final Bilirubin, Total 08/19/2023 10:52:31 0.2 <=1 .2 (mg/dL) Final Calcium 08/19/2023 10:52:31 9.4 8.4-10.2 ( mg/dL) Final Protein 08/19/2023 10:52:31 6.3 6.0-8.3 (g /dL) Final ALT (Alanine aminotransferase) 08/19/2023 10:52:31 32 10-35 (U/L) Tarik polo Performing Location LABORATORY [facility] [place] - [address] [facility] [address]
--- OUTSIDE RECORDS SUMMARY | 2023-08-22 20:02 | External Medical Summary ---
Author Name Unknown Address Unknown Organization [id number]:LABORATORY [facility] - [address] [facility] [address] [facility] [address] Laboratory Report Ordering Provider Test Date Status ANTONIO EDMONDS 08/19/2023 10:52:31 Final Observation Date Value Abnormality Reference (Units ) Status WBC, Total 08/19/2023 10:52:31 9.57 4.00-10.80 (K/uL) Final RBC 08/19/2023 10:52:31 3.05 3.85-5.15 (M/uL) Final Hemoglobin 08/19/2023 10:52:31 9.5 Below low normal 12.0-15.3 (g/dL) Final HCT 08/19/2023 10:52:31 30.5 Below low normal 36.0-45.2 (%) Final MCV 08/19/2023 10:52:31 100.0 81.5-97.5 (fL) Final MCH 08/19/2023 10:52:31 31.1 27.0-34.0 (pg) Final MCHC 08/19/2023 10:52:31 31.1 32.0-36.0 (g/dL) Final RDW 08/19/2023 10:52:31 16.7 11.5-15.5 (%) Final Platelets 08/19/2023 10:52:31 223 140-400 (K/uL) Final MPV 08/19/2023 10:52:31 11.4 6.6-11.1 (fL) Final Nucleated erythrocytes/100 leukocytes [Ratio] in Blood by Automated count 08/19/2023 10:52:31 0 <=0 (/100 WBCs) Final Performing Location LABORATORY [facility] [place] - [address] [facility] [address]
--- OUTSIDE RECORDS SUMMARY | 2023-08-22 20:02 | External Medical Summary ---
Author Name Unknown Address Unknown Organization K01:LABORATORY [facility] [place] - [address] [facility] [address] [facility] [address] Laboratory Report Ordering Provider Test Date Status ANTONIO EDMONDS 08/19/2023 10:52:31 Final Observation Date Value Abnormality Reference (Units ) Status Ferritin 08/19/2023 10:52:31 408 Above high normal 13 -150 (ng/mL) Final Postmenopausal women have hi gher ferritin levels than pre-menopausal women. The above reference interval is based on pre-menopausal women. Performing Location LABORATORY [facility] - [address] [facility] [address]
--- OUTSIDE RECORDS SUMMARY | 2023-08-22 20:02 | External Medical Summary ---
Author Name Unknown Address Unknown Organization K01:[facility]ORY [facility] [place] [address] [place] [address] Laboratory Report Ordering Provider Test Date Status ANTONIO EDMONDS 08/19/2023 10:52:31 Final Observation Date Value Abnormality Reference (Units ) Status Folic Acid 08/19/2023 10:52:31 >20.0 >4.5 (ng/ mL) Final Performing Location [facility] [place] [address] [place] [address]
--- OUTSIDE RECORDS SUMMARY | 2023-08-22 20:02 | External Medical Summary ---
Author Name Unknown Address Unknown Organization [id number]:LABORATORY [place] 57[address] - [address] [place] [address] Laboratory Report Ordering Provider Test Date Status PARVIZ ORR 08/20/2023 11:38:41 Final Observation Date Value Abnormality Reference (Units ) Status SYNC LEUKOCYTES IN BLOOD BY AUTOMATED COUNT 08/20/2023 11:38:41 9.69 4.00-10.80 (K/uL) Final Segs 08/20/2023 11:38:41 62.6 40.0-75.0 (%) Final Lymphs % 08/20/2023 11:38:41 18.6 18.0-42.0 (%) Final Monos 08/20/2023 11:38:41 9.7 1.0-11.0 (%) Final Eosinophils 08/20/2023 11:38:41 8.7 Above high normal 0.0-6.0 (%) Final Basos 08/20/2023 11:38:41 0.4 0.0-2.0 (%) Final Absolute Segs 08/20/2023 11:38:41 6.07 1.80-7.70 (K/uL) Final Lymphs, absolute 08/20/2023 11:38:41 1.80 1.00-4.80 (K/ul) Final Monos, Abs 08/20/2023 11:38:41 0.94 0.00-1.10 (K/uL) Final Eos, Abs 08/20/2023 11:38:41 0.84 Above high normal 0.00-0.70 (K/uL) Final Basos, Abs 08/20/2023 11:38:41 0.04 0.00-0.20 (K/uL) Final Performing Location LABORATORY [place] 57[address] 0 - [address] [place] [address]
--- OUTSIDE RECORDS SUMMARY | 2023-08-22 20:02 | External Medical Summary ---
Author Name Unknown Address Unknown Organization K0G:LABORATORY [place] 57-[address] - [address] [place] [address] Laboratory Report Ordering Provider Test Date Status ANTONIO EDMONDS 08/20/2023 11:38:41 Final Observation Date Value Abnormality Reference (Units ) Status BUN 08/20/2023 11:38:41 75 Above high normal 6-20 (mg/dL) Final Creatinine 08/20/2023 11:38:41 2.5 Above high normal 0.5-1.0 (mg/dL) Final Glomerular filtration rate/1.73 sq M.predicted [Volume Rate/Area] in Serum, Plasma or Blood by Creatinine-based formula (CKD-EPI) 08/20/2023 11:38:41 18 Below low normal >=60 (mL/min) Final eGFR is calculated based on the CKD-EPI 2020 equation SODIUM 08/20/2023 11:38:41 138 135-146 (m mol/L) Final Potassium 08/20/2023 11:38:41 4.9 3.5-5.1 (m mol/L) Final Cl 08/20/2023 11:38:41 100 98-107 (mm ol/L) Final CO2 08/20/2023 11:38:41 24 22-32 (mmo l/L) Final Anion gap 08/20/2023 11:38:41 14 7-15 (mmol /L) Final Glucose 08/20/2023 11:38:41 123 Above high normal 70 -120 (mg/dL) Final Calcium 08/20/2023 11:38:41 9.7 8.4-10.2 ( mg/dL) Final Performing Location [facility] - [address] [place] [address]
--- OUTSIDE RECORDS SUMMARY | 2023-08-22 20:02 | External Medical Summary ---
Author Name Unknown Address Unknown Organization K01:[facility] - [address] [place] [address] Laboratory Report Ordering Provider Test Date Status ANTONIO EDMONDS 08/19/2023 10:52:31 Final Observation Date Value Abnormality Reference (Units ) Status Vitamin B12 08/19/2023 10:52:31 1795 Above high normal 232-1245 (pg/mL) Final Performing Location [facility] - [address] [place] [address]
--- OUTSIDE RECORDS SUMMARY | 2023-08-22 20:02 | External Medical Summary | Summary of Care ---
Author Name Unknown Organization [facility] Address [address] [place] [address] Phone [phone] Care Team Providers Care Vacuum Cleaner Mechanic Name Role Phone Florentin Calvo DO Primary Care Provider [phone] Reason for Visit * Reason Comments Medication Management Dosage Adjustment In Person (Anticoag Cl inic) Hospital Follow-Up Encounter Details Date Type Department Care Team (Late st Contact Info) Description 08/19/2023 9:50 AM EST Pharmacy Family Practice [address] [address] College, Pharmacist [address] [address] Encounter for long-term (current) use of medications* Allergies Active Allergy Reactions Criticality Noted Date Comments Azithromycin Other (Please comment) 12/04/2021 QTC prolongation at [facility] Celecoxib Hives,Rash High 03/24/2013 Other [...] as of this encounter (statuses as of 08/19/2023) Medications Medication Sig Dispensed Refills Start Date End Date Status On-Q-ityTouch Verio w/Device KitIndications:Type 2 diabetes mellitus with hemoglobin A1c goal of less than 7.0% ([facility]) Use up to 1 times a day. 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 0 2023 08/25/2023 Active Hospital, Clinic, or Other Facility Administered [...] as of this encounter (statuses as of 08/19/2023) Active Problems Problem Noted Date Diagnosed Date Presence of Watchman left atrial appendage closu re device 07/31/2023 S/P mitral valve clip implantation 03/06/2023 Atherosclerosis of [place] 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 02/13/2023 Last Assessment & Plan: Continue statin, sotalol. 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 Assessment & Plan: Now just [...] as of this encounter (statuses as of 08/19/2023) Resolved Problems Problem Noted Date Diagnosed Date [...] 02/21 -continue supplements Shortness of breath 07/26/2022 03/27/20 23 Last Assessment & Plan: Followed by [...] as of this encounter (statuses as of 08/19/2023) Immunizations Name Administration Dates Next Due COVID-19 mRNA, LNP-s, No Pre serve, 2-Dose Series (Moderna) 06/23/2021,10/25/2020,09/28/2020 COVID-19, LNP-s, No Preserve , Larry-sucrose, Ages 12+ (Pfizer) 04/09/2022 COVID-19, MRNA-LNP, 23-24, P F, 30 MCG/0.3 mL, 12 YRS AND ABOVE, IM ([employer] Solutions-Comirnaty) 06/09/2023 Covid-19, Mrna, Lnp-s, Pf, B ivalent, [...] or do you have serious difficulty hearing? No-WICHITA can hear w/ hearing aid 03/07/2023 Are [...] as of this encounter Progress Notes * Leonardinna Jorge Veronique Fisherarvind, [facility] - 08/19/2023 9:02 AM EST Medication Therapy Disease Management Clinic - Medication Reconciliation Inga Barakat is an 83 year old being seen for medication reconciliation. Prescription insurance information: Material WrldBritta Stacy Do you have any other prescription coverage: Yes, PACE Preferred pharmacy: [facility] ([facility]) [x] Problem list reviewed [x] Allergies reviewed and updated if needed [x] Drug interaction check completed [x] HEDIS list addressed Immunizations: Up to Date Date of Hospital Admission/Primary Diagnosis: 08/14/23 [facility] - TIA Date of Discharge from Hospital: 08/15/23 Medication changes during admission/on discharge: Added: doxycycline 100mg BID for 10 days Modified: none Discontinued: none Patient stressed to continue statin, plavix, and aspirin. Does the patient currently have all of their medications in their home?: Yes Labs/Vitals/Risk Scores: The ASCVD Risk score (Ga DK, et al., 2019) failed to calculate for the following reasons: The 2019 ASCVD risk score is only valid for ages 40 to 79 The patient has a prior [place] or stroke diagnosis BP Readings from Last 3 Encounters: 08/19/23 122/60 08/13/23 128/55 08/01/23 108/60 Recent Labs Units 08/15/23 0000 02/21/23 1231 08/27/22 1609 HEMOGLOBIN A1C - [facility] % -- 6.5* 6.2* HEMOGLOBIN, [id number] LAB 6.8* -- -- Recent Labs Units 08/13/23 0937 07/31/23 0627 07/03/23 1225 ESTIMATED GLOMERULAR FILTRATION RATE - [facility] mL/min 27* 30* 34* Serum creatinine: 1.9 mg/dL (H) 08/13/23 0937 Estimated creatinine clearance: 22.5 mL/min (A) Assessment & Plan: Medication discrepancies identified: updated to include new doxycycline script Dose/frequency of medications appropriate for current renal function? yes Other medication problems identified: none Patient education provided: regarding finishing antibiotic and checking expiration dates of PRN meds Referral pended for follow up management of: N/A Summary- Changes & Recommendations: Med rec completed with patient after hospital admission for TIA. Patient had A1c taken in hospital - records update. Repeat med rec visit in 1 year Veronique Nye [facility] Clinical Pharmacist - Electrical Tech Medication Therapy Management Clinic 08/19/2023, 9:02 AM documented in this encounter Plan of Treatment Upcoming Encounters Date Type Department Care Team (Late st Contact Info) Description 09/02/2023 2:30 PM EST Home Visit [facility] [address] [address] [place] Hurt RN [address] [address] 09/11/2023 3:30 PM EST Office Visit Cardiology, [facility] [address] [address] Stephen Hewitt DO [address] [address] 09/15/2023 8:00 AM EST Appointment Cardiac Studies [facility] [address] [place] [id number] 10/14/2023 2:30 PM EST Office Visit Hematology/Oncology [place], [place] [address] [place] [address] Nereyda Metz CRNP [address] [facility] [place] [address] 10/24/2023 2:30 PM EST Office Visit Gynecology/Oncology, [place] [address] [place] [address] Vanessa Elena PA-C [address] [place] [address] 01/21/2024 2:40 PM EDT Office Visit Otolaryngology [facility] 132 [facility] [place] [address] Cheri Castillo PA-C [facility] [address] 02/17/2024 3:30 PM EDT Office Visit Nephrology, [facility] 200 [facility] [place] [address] ZeMichelle chiu PA-C [facility] [address] 06/03/2024 2:15 PM EDT Office Visit Ophthalmology, [facility] 132 [facility] [place] [address] Wilbur Benavides, DO [address] [facility] [place] [address] 08/09/2024 1:00 PM EST Nurse Only Ancillary 65 [facility] 293 [facility], [place] [address] College, Nurse Annual Wellness Visit [address] [address] Health Maintenance Due Date Last Done Comments Hepatitis B (1 of 3 - Risk 3-dose series) 2000 CKD PHOS USE SMARTSET 02263 05/01/2023 09/0 02/2022, 04/03/2022, 12/05/2020, Additional history exists TSH 09/24/2023 09/24/2022, 10/2022, 02/12/2022, Additional history exists Diabetic Foot Exam 10/01/2023 10/01/2022, 0 10/26/2021, 12/05/2020, Additional history exists GFR 02/12/2024 08/13/2023, 02/2023, 07/03/2023, Additional history exists HbA1c 02/14/2024 2023, 01/25, 08/27/2022, Additional history exists Albumin/Creatinine Ratio 02/22/2024 023, 05/01/2022, 10/26/2021, Additional history exists Diabetic Eye Exam 05/22/2024 05/22/2023, , 05/22/2023, Additional history exists Depression Screening 05/23/2024 05/23/2023 CKD HGB USE SMARTSET 18391 08/13/202408/13, 07/31/2023, 07/31/2023, Additional history exists DXA [...] this encounter Medical Devices Implanted Type Area Heavy Forger Helper Device Identifier Shelf Expiration Date Model / Serial / Lot Cath Thermodilution 6fr - [id number] Implanted:Qty: 1 on 01/24/2023 by Wilbur Rivera MD at [facility] [employer] [id number] 10/15/2024 [id number] / / [id number] Mirtaclip G4 - [id number] Implanted:Qty: 1 on 03/10/2023 at [facility] Admeld 11/19/2023 [id number] / / [id number] Device Watchman Flx 31mm - [id number] Implanted:Qty: 1 on 07/31/2023 by Wilbur Rivera MD at [facility] Askem : INTRV CARD [id number] 12/02/2025 [id number] / [id number] documented as of this encounter Procedures Procedure Name Priority Date/Time Associated Diagnosis Comments HEMOGLOBIN A1C Routine 2023 documented in this encounter Results * (ABNORMAL) HEMOGLOBIN A1C (2023) HEMOGLOBIN, [id number] LAB 6.8(H) Blood Venous blood specimen / Unknown 2023 History Per Patient LAB BLOOD ORDERABLES documented in this encounter Visit Diagnoses Diagnosis Encounter for long-term (current) use of medications- Primary Encounter for long-term (current) use of other medications documented in this encounter Advance Directives Documents on File Type Date Recorded Patient Java Project Manager Expl anation Advance Directives and Living Will 11/29/2022 ADVANCE DIRECTIVE / LIVING WILL Power of Eyelet Punch Operator 11/29/2022 POWER OF A TTORNEY Advance Directives and Living Will 10/24/2014 ADVANCE DIRECTIVE / LIVING WILL Power of Eyelet Punch Operator 10/24/2014 POWER OF A TTORNEY Latest [...] the patient have Health Care Power of Eyelet Punch Operator? No Code Status History Code Status [...] Agen t (per Health Care Power of Eyelet Punch Operator document) Care Teams Vacuum Cleaner Mechanic Relationship Specialty Start Date End Date Florentin Calvo DO [address] [place] [address] PCP - General Internal Medicine 03/24/13 documented as of this encounter
--- OUTSIDE RECORDS SUMMARY | 2023-08-22 20:02 | External Medical Summary | Summary of Care ---
Author Name Unknown Organization [facility] Address [address] [place] [address] Phone [phone] Care Team Providers Care Mold Repairer Name Role Phone Florentin Calvo DO Primary Care Provider [phone] Reason for Visit * Reason Comments Medication Management Dosage Adjustment In Person (Anticoag Cl inic) Hospital Follow-Up Encounter Details Date Type Department Care Team (Late st Contact Info) Description 08/19/2023 9:50 AM EST Pharmacy Family Practice [address] [phone] College, Pharmacist [address] [address] Encounter for long-term (current) use of medications*; Type 2 diabetes mellitus with stage 3b chronic kidney disease, without long-term current use of insulin (HCC) Allergies Active Allergy Reactions Criticality Noted Date Comments Azithromycin Other (Please comment) 12/04/2021 QTC prolongation at [facility] Celecoxib Hives,Rash High 03/24/2013 [...] DIRECTED 100 Tablet 3 03/31/2023 Active Ipratropium [place] 0.03 % Nasal Solution (Atrovent)Indicatio ns:Chronic rhinitis [...] bedtime. 90 Tablet 3 05/16/2023 Active Tiotropium [place]-Olodaterol 2.5-2.5 MCG/ACT Inhalation Aerosol Solution (Stiolto Respimat) [...] mitral valve clip implantation 03/06/2023 Atherosclerosis of [place] 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 02/13/2023 Last Assessment & Plan: Continue statin, sotalol. 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 No-MIAMI can hear w/ hearing aid 03/07/2023 Are [...] of this encounter Progress Notes * Veronique Batista, [facility] - 08/19/2023 9:02 AM EST Medication Therapy Disease Management Clinic - Medication Reconciliation Inga Barakat is an 83 year old being seen for medication reconciliation. Prescription insurance information: FriendFitBritta Stacy Do you have any other prescription coverage: Yes, LINK Preferred pharmacy: [facility] ([facility]) [x] Problem list reviewed [x] Allergies reviewed and updated if needed [x] Drug interaction check completed [x] HEDIS list addressed Immunizations: Up to Date Date of Hospital Admission/Primary Diagnosis: 08/14/23 [facility] - TIA Date of Discharge from Hospital: 08/15/23 Medication changes during admission/on discharge: Added: doxycycline 100mg BID for 10 days Modified: none Discontinued: none Patient stressed to continue statin, plavix, and aspirin. Does the patient currently have all of their medications in their home?: Yes Labs/Vitals/Risk Scores: The ASCVD Risk score (Ga BLAIR, et al., 2019) failed to calculate for the following reasons: The 2019 ASCVD risk score is only valid for ages 40 to 79 The patient has a prior [place] or stroke diagnosis BP Readings from Last 3 Encounters: 08/19/23 122/60 08/13/23 128/55 08/01/23 108/60 Recent Labs Units 08/15/23 0000 02/21/23 1231 08/27/22 1609 HEMOGLOBIN A1C - [facility] % -- 6.5* 6.2* HEMOGLOBIN, [id number] LAB 6.8* -- -- Recent Labs Units [...] rec visit in 1 year Veronique Nye [facility] Clinical Pharmacist - Safety Professional Medication Therapy Management Clinic 08/19/2023, 9:02 AM documented in this encounter Plan of Treatment Upcoming Encounters Date Type Department Care Team (Late st Contact Info) Description 09/02/2023 2:30 PM EST Home Visit [facility] [address] [address] [place] Hurt RN [address] [address] 09/11/2023 3:30 PM EST Office Visit Cardiology, [facility] [address] [address] Stephen Hewitt DO [address] [address] 09/15/2023 8:00 AM EST Appointment Cardiac Studies [facility] [address] [place] [address] 10/14/2023 2:30 PM EST Office Visit Hematology/Oncology [facility] 200 [facility] [place] [address] Nereyda Metz CRNP 400 [facility] [place] [address] 10/23/2023 1:40 PM EST Office Visit Otolaryngology, [place] [address] [place] [address] Connor Krishnamurthy PA-C [address] [place] [address] 10/24/2023 2:30 PM EST Office Visit Gynecology/Oncology, [place] [address] [place] [address] Vanessa Elena PA-C [address] [place] [address] 01/21/2024 2:40 PM EDT Office Visit [facility] 132 [place] [address] Cheri Castillo PA-C [address] [place] [address] 02/17/2024 3:30 PM EDT Office Visit Nephrology, [facility] 200 [facility] [place], [place] [address] ZemaitisMichelle PA-C 200 [facility] [place], [place] [address] 06/03/2024 2:15 PM EDT Office Visit Ophthalmology, [facility] 132 [place] [address] Wilbur Benavides DO [address] [place] [address] 08/09/2024 1:00 PM EST Nurse Only Ancillary 65 [facility] 293 [place] [address] College, Nurse Annual Wellness Visit 65 [facility] [address] [place] [address] Pending Results Name Type Priority Associated Diagnoses Date /Time COMPREHENSIVE METABOLIC PANEL Lab Routine Type 2 diabetes mellitus with stage 3b chronic kidney disease, without long-term current use of insulin ([facility]) 08/19/2023 10:52 AM EST PHOSPHORUS Lab Routine Type 2 diabetes mellitus with stage 3b chronic kidney disease, without long-term current use of insulin ([facility]) 08/19/2023 10:52 AM EST CBC WITH WBC DIFFERENTIAL Lab Routine Type 2 diabetes mellitus with stage 3b chronic kidney disease, without long-term current use of insulin (HCC) 08/19/2023 10:52 AM EST CBC Lab Routine Type 2 diabetes mellitus with stage 3b chronic kidney disease, without long-term current use of insulin ([facility]) 08/19/2023 10:52 AM EST DIFFERENTIAL, AUTOMATED Lab Routine Type 2 diabetes mellitus with stage 3b chronic kidney disease, without long-term current use of insulin ([facility]) 08/19/2023 10:52 AM EST Health Maintenance Due Date Last Done Comments Hepatitis B (1 of 3 - Risk 3-dose series) 2000 CKD PHOS USE SMARTSET 37811 05/01/20230 02/2022, 04/03/2022, 12/05/2020, Additional history exists TSH 09/24/2023 09/24/2022, 0 10/2022, 02/12/2022, Additional history exists Diabetic Foot Exam 10/01/2023 10/01/2022, 0 10/26/2021, 12/05/2020, Additional history exists GFR 02/12/2024 08/13/2023, 02/2023, 07/03/2023, Additional history exists HbA1c 02/14/2024 2023, 01/25, 08/27/2022, Additional history exists Albumin/Creatinine Ratio 02/22/202402/21/2 023, 05/01/2022, 10/26/2021, Additional history exists Diabetic Eye Exam 05/22/2024 05/22/2023, , 05/22/2023, Additional history exists Depression Screening 05/23/2024 05/23/2023 CKD HGB USE SMARTSET 23258 08/13/202408/13, 07/31/2023, 07/31/2023, Additional history exists DXA [...] this encounter Medical Devices Implanted Type Area Nitrocellulose Operator Device Identifier Shelf Expiration Date Model / Serial / Lot Cath Thermodilution 6fr - [id number] Implanted:Qty: 1 on 01/24/2023 by Wilbur Rivera MD at [facility] [employer] [id number] 10/15/2024 [id number] / / [id number] Mirtaclip G4 - [id number] Implanted:Qty: 1 on 03/10/2023 at [facility] [employer] 11/19/2023 [id number] / / [id number] Device Watchman Flx 31mm - [id number] Implanted:Qty: 1 on 07/31/2023 by Wilbur Rivera MD at [facility] Experience Headphones : INTRV CARD [id number] 12/02/2025 [id number] documented as of this encounter Procedures Procedure Name Priority Date/Time Associated Diagnosis Comments HEMOGLOBIN A1C Routine 2023 documented in this encounter Results * (ABNORMAL) HEMOGLOBIN A1C (2023) HEMOGLOBIN, [id number] LAB 6.8(H) Blood Venous blood specimen / Unknown 2023 History Per Patient LAB BLOOD ORDERABLES documented in this encounter Visit Diagnoses Diagnosis Encounter for long-term (current) use of medications- Primary Encounter for long-term (current) use of other medications Type 2 diabetes mellitus with stage 3b chronic kidney disease, without long-term current use of insulin (HCC) documented in this encounter Advance Directives Documents on File Type Date Recorded Patient Cost Coordinator Expl anation Advance Directives and Living Will 11/29/2022 ADVANCE DIRECTIVE / LIVING WILL Power of Ceramic Products Sales Engineer 11/29/2022 POWER OF A TTORNEY Advance Directives and Living Will 10/24/2014 ADVANCE DIRECTIVE / LIVING WILL Power of Ceramic Products Sales Engineer 10/24/2014 POWER OF A TTORNEY Latest Code [...] the patient have Health Care Power of Ceramic Products Sales Engineer? No Code Status History Code Status Date [...] Agen t (per Health Care Power of Ceramic Products Sales Engineer document) Care Teams Mold Repairer Relationship Specialty Start Date End Date Florentin Calvo DO [address] [place] [address] PCP - General Internal Medicine 03/24/13 documented as of this encounter
--- OUTSIDE RECORDS SUMMARY | 2023-08-22 20:02 | External Medical Summary | Summary of Care ---
Author Name Unknown Organization [facility] Address [address] [place] [address] Phone [phone] Care Team Providers Care Packing Machine Pilot Can Router Name Role Phone Florentin Calvo DO Primary Care Provider [phone] Reason for Visit * Reason Comments Outpatient Testing Encounter Details Date Type Department Care Team (Late st Contact Info) Description 08/20/2023 11:40 AM EST Laboratory Laboratory, Health system [address] [facility] [place] [address] [facility] [address] [facility] [place] [address] Iron deficiency anemia, unspecified iron deficiency anemia type; Potassium serum increased Allergies Active Allergy Reactions Criticality Noted Date Comments Azithromycin Other (Please comment) 12/04/2021 QTC prolongation at [facility] Celecoxib Hives,Rash High 03/24/2013 Other reaction(s): Rash/Hives/Itching. [...] Dispensed Refills Start Date End Date Status TextbrokerTouch Verio w/Device KitIndications:Type 2 diabetes mellitus with hemoglobin A1c goal of less than 7.0% ([facility]) Use up to 1 times [...] Oral Tablet (Lipitor)Indication s:PVD (peripheral vascular disease) ([facility]),Type 2 diabetes mellitus with stage 3a chronic kidney disease and hypertension ([facility]) TAKE ONE TABLET BY MOUTH EVERY DAY DIRECTED 100 Tablet 3 03/31/2023 Active Ipratropium [place] 0.03 % Nasal Solution (Atrovent)Indicatio ns:Chronic rhinitis [...] bedtime. 90 Tablet 3 05/16/2023 Active Tiotropium [place]-Olodaterol 2.5-2.5 MCG/ACT Inhalation Aerosol Solution (Stiolto Respimat) [...] mitral valve clip implantation 03/06/2023 Atherosclerosis of [place] 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 02/13/2023 Last Assessment & Plan: Continue statin, sotalol. 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 No-TANGIRNAQ can hear w/ hearing aid 03/07/2023 Are [...] Description 09/02/2023 2:30 PM EST Home Visit [facility] [address] [place] [address] Michelle Hurt RN [address] [place] [address] 09/11/2023 3:30 PM EST Office Visit Cardiology, Health system [address] [place] [address] Stephen Hewitt DO [address] [place] [address] 09/15/2023 8:00 AM EST Appointment Cardiac Studies [facility], [address] [address] 10/14/2023 2:30 PM EST Office Visit Hematology/Oncology [facility] [address] [facility], [place] [address] Nereyda Metz CRNP [address] [place] [address] 10/24/2023 2:30 PM EST Office Visit Gynecology/Oncology, [place] [address] [place] [address] Vanessa Elena PA-C [address] [place] [address] 11/04/2023 11:00 AM EDT Office Visit Otolaryngology Health system [address] [place] [address] Cheri Castillo PA-C 132 [facility] [place] [address] 12/08/2023 2:20 PM EDT Office Visit Family Practice 65 [facility] [address] [place] [id number] Florentin Calvo, [address] [place] [address] 01/21/2024 2:40 PM EDT Office [facility] [place] [address] Cheri [facility]illo PA-C [facility] [address] 02/17/2024 3:30 PM EDT Office Visit Nephrology, [facility] [address] [facility] [place] [address] Zemaitis, Michelle Amezquita PA-C [address] [facility] [place] [address] 06/03/2024 2:15 PM EDT Office Visit Ophthalmology, [facility] [address] [facility] [address] Wilbur Benavides, DO 21 [facility] [place] [address] 08/09/2024 1:00 PM EST Nurse Only Ancillary 65 [facility] [address] [facility], [place] [address] College, Nurse Annual Wellness Visit [address], [place] [address] Pending Results Name Type Priority Associated Diagnoses Date /Time CBC WITH WBC DIFFERENTIAL Lab STAT Iron deficiency anemia, unspecified iron deficiency anemia type 08/20/2023 11:38 AM EST BASIC METABOLIC PANEL Lab STAT Potassium serum increased 08/20/2023 11:38 AM EST CBC Lab STAT Iron deficiency anemia, unspecified iron deficiency anemia type 08/20/2023 11:38 AM EST DIFFERENTIAL, AUTOMATED Lab STAT Iron deficiency anemia, unspecified iron deficiency anemia type 08/20/2023 11:38 AM EST Health Maintenance Due Date Last Done Comments Hepatitis B (1 of 3 - Risk 3-dose series) 2000 TSH 09/24/2023 09/24/2022, 01/0 10/2022, 02/12/2022, Additional history exists Diabetic Foot Exam 10/01/2023 10/01/2022, 0 10/26/2021, 12/05/2020, Additional history exists HbA1c 02/14/2024 2023, 01/25, 08/27/2022, Additional history exists GFR 02/18/2024 08/19/2023, 07/26, 07/31/2023, Additional history exists Albumin/Creatinine Ratio 02/22/2024 023, 05/01/2022, 10/26/2021, Additional history exists Diabetic Eye Exam 05/22/2024 05/22/2023, , 05/22/2023, Additional history exists CKD HGB USE SMARTSET 62715 08/19/202408/19, 08/19/2023, 08/13/2023, Additional history exists CKD PHOS USE SMARTSET 08658 08/19/202407/26, 05/01/2022, 04/03/2022, Additional history exists Depression Screening 08/19/2024 08/19/2023 DXA Scan 05/07/2025 05/07/2021, 12/24, 04/12/2013, Additional [...] this encounter Medical Devices Implanted Type Area Consumer Marketing Specialist Device Identifier Shelf Expiration Date Model / Serial / Lot Cath Thermodilution 6fr - [id number] Implanted:Qty: 1 on 01/24/2023 by Wilbur Rivera MD at [facility] [place] [employer] [id number] 10/15/2024 [id number] / / [id number] Mirtaclip G4 - [id number] Implanted:Qty: 1 on 03/10/2023 at [facility] [place] [employer] 11/19/2023 [id number] / / [id number] Device Watchman Flx 31mm - [id number] Implanted:Qty: 1 on 07/31/2023 by Wilbur Rivera MD at [facility] [employer] : INTRV CARD [id number] 12/02/2025 [id number] / / [id number] documented as of this encounter Visit Diagnoses Diagnosis Iron deficiency anemia, unspecified iron deficiency anemia type Potassium serum increased Hyperpotassemia documented in this encounter Advance Directives Documents on File Type Date Recorded 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 No Code Status History Code Status Date [...] Agent [facility] Communication [facility] Adult Child Health Care Agen t (per Health Care Power of Residential Support Specialist document) Care Teams Packing Machine Pilot Can Router Relationship Specialty Start Date End Date Florentin Calvo DO [address] [place] [address] PCP - General Internal Medicine 03/24/13 documented as of this encounter
--- OUTSIDE RECORDS SUMMARY | 2023-08-22 20:02 | External Medical Summary ---
Author Name Unknown Address Unknown Organization [id number]:[facility]ATORY [facility] - [address] [facility] [address] Laboratory Report Ordering Provider Test Date Status ANTONIO EDMONDS 08/19/2023 10:52:31 Final Observation Date Value Abnormality Reference (Units ) Status SYNC LEUKOCYTES IN BLOOD BY AUTOMATED COUNT 08/19/2023 10:52:31 9.57 4.00-10.80 (K/uL) Final Segs 08/19/2023 10:52:31 67.3 40.0-75.0 (%) Final Lymphs % 08/19/2023 10:52:31 14.5 Below low normal 18.0-42.0 (%) Final Monos 08/19/2023 10:52:31 8.9 1.0-11.0 (%) Final Eosinophils 08/19/2023 10:52:31 7.8 Above high normal 0.0-6.0 (%) Final Basos 08/19/2023 10:52:31 0.7 0.0-2.0 (%) Final Immature Granulocyte, Percent 08/19/2023 10:52:31 0.8 0.0-2.0 (%) Final Absolute Segs 08/19/2023 10:52:31 6.43 1.80-7.70 (K/uL) Final Lymphs, absolute 08/19/2023 10:52:31 1.39 1.00-4.80 (K/ul) Final Monos, Abs 08/19/2023 10:52:31 0.85 0.00-1.10 (K/uL) Final Eos, Abs 08/19/2023 10:52:31 0.75 Above high normal 0.00-0.70 (K/uL) Final Basos, Abs 08/19/2023 10:52:31 0.07 0.00-0.20 (K/uL) Final Immature Granulocytes, Number 08/19/2023 10:52:31 0.08 0.00-0.20 (K/uL) Final Performing Location [facility] [address] [place] [address]
--- OUTSIDE RECORDS SUMMARY | 2023-08-22 20:02 | External Medical Summary ---
Author Name Unknown Address Unknown Organization K01:LABORATORY [facility] - [address] [facility] [address] Laboratory Report Ordering Provider Test Date Status ANTONIO EDMONDS 08/19/2023 10:52:31 Final Observation Date Value Abnormality Reference (Units ) Status Retic, % (auto) 08/19/2023 10:52:31 2.83 Above high normal 0.80-1.90 (%) Final Reticulocytes, Absolute 08/19/2023 10:52:31 85.5 31.3-100.1 (K/uL) Final Reticulocyte fraction, immature 08/19/2023 10:52:31 16.6 2.5-20.6 (%) Final Reticulocyte HGB 08/19/2023 10:52:31 33.3 29.7-37.4 (pg) Final Performing Location LAB[facility]ATORY [facility] - [address] [place] [address]
--- OUTSIDE RECORDS SUMMARY | 2023-08-22 20:02 | External Medical Summary | Summary of Care ---
Author Name Unknown Organization [facility] Address [address] [place] [address] Phone [phone] Care Team Providers Care Customer Service Dispatcher Name Role Phone Florentin Calvo DO Primary Care Provider [phone] Reason for Referral * Evaluate & Treat - Unlimited Visits (Within 10 days (routine)) - Authorized Specialty Diagnoses / Procedures Referred By Danny mcdowell Referred To Contact Otolaryngology Diagnoses Chronic pansinusitis Florentin Calvo DO [address] [place] [address] Referral ID Status Reason Start Date Expiration Date Visits Requested Visits Authorized [id number] Authorized Specialty Services Required 3 [phone] Question Answer Referral Priority Within 10 days (routine) [facility] Reason for Referral Sinus/Nasal/Allergy Conditions Specific Condition: Chronic Sinusitis Reason for Visit * Reason Onset Date Comments Hospital Follow-Up Hospital Follow-Up 08/19/2023 Encounter Details Date Type Department Care Team (Latest Contact Info) Description 08/19/2023 10:00 AM EST Office Visit Family Practice [address] [facility], [place] [address] [place] [address] Florentin Calvo DO [address] [place] [address] History of TIA (transient ischemic attack)*; Chronic pansinusitis; Type 2 diabetes mellitus with stage 3b chronic kidney disease, without long-term current use of insulin (HCC); Atherosclerosis of hoh coronary artery of hoh heart without angina pectoris; Presence of Watchman left atrial appendage closure device; S/P mitral valve clip implantation; Paroxysmal atrial fibrillation (HCC); Acquired hypothyroidism; Obstructive sleep apnea of adult; Tremor; Iron deficiency anemia, unspecified iron deficiency anemia type; Type 2 diabetes mellitus with polyneuropathy (HCC); Current moderate episode of major depressive disorder without prior episode (HCC); Moderate persistent asthma without complication; Gastro-esophageal reflux disease without esophagitis; Pure hypercholesterolemia; History of endometrial cancer; Severe tricuspid regurgitation; Risk and functional assessment; Hospital discharge follow-up Allergies Active Allergy Reactions Criticality Noted Date Comments Azithromycin Other (Please comment) 12/04/2021 QTC prolongation at [facility] Celecoxib Hives,Rash High 03/24/2013 Other [...] Oral Tablet (Lipitor)Indication s:PVD (peripheral vascular disease) ([facility]),Type 2 diabetes mellitus with stage 3a chronic kidney disease and hypertension ([facility]) TAKE ONE TABLET BY MOUTH EVERY DAY DIRECTED 100 Tablet 3 03/31/2023 Active Ipratropium [place] 0.03 % Nasal Solution (Atrovent)Indicatio ns:Chronic rhinitis Administer 2 Sprays into nostril in the morning and 2 Sprays before bedtime. 90 mL 3 04/01/2023 Active Sotalol HCl 80 MG Oral Tablet (Betapace)Indicatio ns:Paroxysmal atrial fibrillation ([facility]) Take 0.5 Tablets by mouth in the [...] bedtime. 90 Tablet 3 05/16/2023 Active Tiotropium [place]-Olodaterol 2.5-2.5 MCG/ACT Inhalation Aerosol Solution (Stiolto Respimat) [...] mitral valve clip implantation 03/06/2023 Atherosclerosis of hoh 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 02/13/2023 Last Assessment & Plan: Continue statin, sotalol. ASA History of TIA (transient ischemic attack) 11/29 Last Assessment & Plan: -Recent admission to [facility], presented with numbness of tongue [...] & Plan: Continue atorvastatin Diabetic retinopathy of [facility] eye without macular edema associated with type [...] Obstructive sleep apnea of adult 09/09/2014 Overview: ROUTE AIDE Last Assessment & Plan: Now just using [...] MCG/0.3 mL, 12 YRS AND ABOVE, IM [facility] 06/09/2023 Covid-19, Mrna, Lnp-s, Pf, B ivalent, [...] Sign Reading Time Taken Comments Blood Pressure 122/60 08/19/2023 9:56 AM EST Pulse 98 08/19/2023 9:56 AM EST Temperature 35 C (95 F) 08/19/2023 9:56 AM EST Respiratory Rate - - Oxygen Saturation 96% 08/19/2023 9:56 AM EST Inhaled Oxygen Concentration - - Weight 72.9 kg (160 lb 11.2 oz) 08/19/2023 9:56 AM EST Height 165.1 cm (5' 5") 08/19/2023 9:56 AM EST Body Mass Index 26.74 08/19/2023 9:56 AM EST documented in this encounter Functional Status Functional Status Response Date of Assess ment Are you deaf or do you have serious difficulty hearing? No-TRIBAL can hear w/ hearing aid 03/07/2023 Are [...] encounter Patient Instructions * Patient Instructions* Hilda Awad, B[facility]ER [facility] - 08/19/2023 10:06 AM EST Patient Instructions - Fall Prevention (This education is for all patients over 65 regardless of symptoms) Remember to take your current medications as prescribed. In order to prevent falls, you are encouraged to: Exercise Utilize assistive/adaptive devices Avoid multifocal lenses when walking Avoid hazards in home Maintain a regular toileting schedule Any questions please contact our office. Preventing Falls in the Home (This education is for all patients over 65 regardless of symptoms) As you get older, falls are more likely. Thats because your reaction time slows. Your muscles and joints may also get stiffer, making them less flexible. Illness, medications, and vision changes can also affect your balance. A fall could leave you unable to live on your own. To make your home safer, follow these tips: Floors Put nonskid pads under area rugs Remove throw rugs Replace worn floor coverings Tack carpets firmly to each step on carpeted stairs. Put nonskid strips on the edges of uncarpeted stairs Keep floors and stairs free of clutter and cords Arrange furniture so there are clear pathways Clean up any spills right away Bathrooms Install grab bars in the tub or shower Apply nonskid strips or put a nonskid rubber mat in the tub or shower Sit on a bath chair to bathe Use bathmats with nonskid backing Lighting Keep a flashlight in each room Put a nightlight along the pathway between the bedroom and the bathroom [employer] Patient Education Copyright 2008 - 2010 [employer] except where otherwise noted Preventing Falls: Exercises to Improve Balance, Flexibility, Strength, and Staying Power (This education is for all patients over 65 regardless of symptoms) Certain types of exercises may help make you less likely to fall. Try the ones below. Or do other exercises that your healthcare provider suggests. Depending on your health, you may need to start slowly. Dont let that stop you. Even small amounts of exercise can help you. Be sure to talk to yourhealthcare provider before starting any exercise program. Improve Balance Many types of exercise can help improve balance. Say chi and yoga are good examples. Heres another one to try. You can do it anytime and almost anywhere. Stand next to a counter or solid support. Push yourself up onto your tiptoes. Hold for 5 seconds. If you start to lose your balance, hold on to the counter. Rest and repeat 5 times. Work up to holding for 20 to 30 seconds, if you can. Increase Flexibility Being more flexible makes it easier for you to move around safely. Try exercises like the seated hamstring stretch. Sit in a chair and put one foot on a stool. Straighten your leg and reach with both hands down either side of your leg. Reach as far down your leg as you can. Hold for about 20 seconds. Go back to the starting position. Then repeat 5 times. Switch legs. Build Strength Resistance exercises help build strength. You can do them without equipment. Or you can use weights, elastic bands, or special machines. One such exercise is called the biceps curl. You can hold a 1 pound weight or even a can of soup. Do this exercise at least 3 times a week. Strive for everyday. Sit up straight in a chair. Keep your elbow close to your body and your wrist straight. Bend your arm, moving your hand up to your shoulder. Then slowly lower your arm. Repeat 5 times. Switch to the other arm. Build Your Staying Power Aerobic exercises make your heart and lungs stronger so you can keep moving longer. Walking and swimming are two of the best types of exercises you can do. Using a stationary bike is great, too. Find an aerobic exercise that you enjoy. Start slowly and build up. Even 5 minutes is helpful. Aimfor a goal of 30 minutes, at least 3 times a week. You dont have to do 30 minutes in one session. Break it up and walk a little throughout the day. More Helpful Tips Start easy. Slowly work up to doing more. Talk with your healthcare provider about the best exercises for you. Call senior centers or health clubs about exercise programs. If needed, have a family member watch you walk every so often to check your stability. Exercise with a friend. Choose an activity you both enjoy. Try exercises that you can do anytime, anywhere. Here are two examples. Have someone with you when you first try these: Practice walking by placing one foot right in front of the other. Stand up and sit down 10 times. Repeat this throughout the day. [employer] Patient Education Copyright 2009 - 2010 [employer] except where otherwise noted. Preventing Falls: Moving Safely Using a Cane or Walker (This education is for all patients over 65 regardless of symptoms) Keep the cane away from your feet so you dont trip. A walking aid, such as a cane or walker, can help you stay more independent and avoid falls. Remember to keep your walking aid within easy reach when youre in a chair or in bed. And learn how to use it safely so you dont injure yourself. Using a Cane If you have a stronger side, hold the cane on that side. Get your balance. Move the cane and your weaker leg forward. Support your weight on both the cane and your weaker side. Step with your stronger leg. Start again from step 1. If youre using a folding walker, be sure you know how to lock it open. Check that its locked open before each use. Using a Walker Roll the walker (or lift it, if youre using one without wheels) forward about 12 inches. Step forward with your weaker leg first. Use the walker to help keep your balance. Bring your other foot forward to the center of the walker. Start again from step 1. Helpful Tips Check with your healthcare provider about the right walking aid to use. Ask about a walker with a seat attached. Check the tips of your cane or walker to make sure they have nonskid covers. Move slowly from room to room. Dont arnold. Sit down to get dressed. Use a ming pack or backpack to keep your hands free. Get help for jobs that mean climbing, even on a stepstool. [employer] Patient Education Copyright 2008 - 2010 [employer] except where otherwise noted. Urinary Incontinence Plan of Care Documentation: (This education is for all patients over 65 regardless of symptoms) Current medications reconciled. Patient encouraged to: Practice kegal exercises Provide education materials Use the restroom every 2 hours throughout the day Limit caffeine, alcohol, spicy foods and acidic foods Keep a bladder diary Limit fluid intake 3-4 hours before bed Lose weight Prevent constipation Take fluid pills at a time when you can get to the bathroom quickly Control sugar better if diabetic Limit fluid intake to 60 oz. per day Wear support stockings (TEDs)if you have edema Hilda Awad LPN 08/19/2023 Kegel Exercises Kegel exercises dont require special clothing or equipment. Theyre easy to learn and simple to do. And if you do them right, no one can tell youre doing them, so they can be done almost anywhere. Your doctor, nurse, or physical therapist can answer any questions you have and help you get started. A Weak Pelvic Floor The pelvic floor muscles may weaken due to aging, and vaginal childbirth, injury, surgery, chronic cough, or lack of exercise. If the pelvic floor is weak, your bladder and other pelvic organs may sag out of place. The urethra may also open too easily and allow urine to leak out. Kegel exercises can help you strengthen your pelvic floor muscles so they can better support the pelvic organs and control urine flow. How Kegel Exercises Are Done Try each of the Kegel exercises described below. When youre doing them, try not to move your leg, buttock, or stomach muscles. While youre urinating, try to stop the flow of urine. Start and stop it as often as you can. Contract as if you were stopping your urine stream, but do it when youre not urinating. Tighten your rectum as if trying not to pass gas. Contract your anus, but dont move your buttocks. Helpful Hints Do your Kegels as often as you can. The more you do them, the faster youll feel the results. Pick an activity you do often as a reminder. For instance, do your Kegels every time you sit down. Tighten your pelvic floor before you sneeze, get up from a chair, cough, laugh, or lift. This protects your pelvic floor from injury and can help prevent urine leakage. Try to hold each Kegel for a slow count to five. You probably wont be able to hold them for thatlong at first, but keep practicing. It will get easier as your pelvic floor gets stronger. Eventually, special weights that you place in your vagina may be recommended to help make your Kegels even more effective. [employer] Patient Education Copyright 2009 - 2010 [employer] except where otherwise noted. Here are some helpful tips for your urinary incontinence: (This education is for all patients over 65 regardless of symptoms) Practice Kegel exercises Use the restroom every 2 hours throughout the day Limit caffeine, alcohol, spicy foods, and acidic foods Keep a bladder diary Limit fluid intake 3-4 hours before bed Lose weight Prevent constipation Take fluid pills at a time when can get to the bathroom quickly Control sugar better if diabetic Limit fluid intake to 60 oz. per day Any questions, please feel free to contact our office. documented in this encounter Progress Notes * Florentin Calvo, DO - 08/19/2023 10:36 AM EST SUBJECTIVE: Inga Barakat is a 83 year old female. Chief Complaint Patient presents with Hospital Follow-Up Hospital Follow-Up Recent Admission: Patient was recently admitted to [facility]. The date of discharge was 2023. Discharge report received and reviewed. 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 The patient was admitted for TIA. She had an episode of slurred speech that occurred the night prior to admission and was present for undetermined amount of time. The patient went back to bed and and symptoms resolved when she woke up the morning of admission. The patient has chronic gait abnormality that has not worsened. CTA head and neck were negative for occlusion. No CVA on MRI brain. The patient did have opacification of all sinuses on MRI as well. Doxycycline was started and ENT evaluation was recommended. Neurology recommended continuing Clopidogrel and ASA. No chest pain or shortness of breath are present. Weight is stable and appetite is good. 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 90 Tablet 3 Tiotropium [place]-Olodaterol 2.5-2.5 MCG/ACT Inhalation Aerosol Solution (Stiolto Respimat) [...] the morning and 1 Tablet before bedtime. SSN Funding w/Device Kit Use up to 1 times a day. E11.9 1 Kit 0 Acetaminophen 325 MG Oral Tablet (Tylenol) Take 2 Tablets by mouth every 6 hours as needed. 100 Tablet 0 Levalbuterol Tartrate 45 MCG/ACT Inhalation Aerosol (Xopenex HFA) Inhale by mouth 1 Puff every 4 hours as needed for Wheezing. 15 g 12 RossoliniTouch mohchi In Vitro Strip (Glucose Blood) Test blood [...] Garza CRNP 2.5 mg at 10/31/22 1441 Current and [...] Azithromycin Other (Please comment) QTC prolongation at [facility] Nickel Swelling Other reaction(s): Unknown OBJECTIVE: BP 122/60 | Pulse 98 | Temp (!) 35 C (95 F) | Ht 1.651 m (5' 5") | Wt 72.9 kg (160 lb 11.2 oz) | SpO2 96% | BMI 26.74 kg/m | BSA 1.83 m REVIEW OF SYSTEMS: Review of Systems Constitutional: Negative for appetite change, fatigue and unexpected weight change. HENT: Negative for congestion, sinus pressure, sore throat and trouble swallowing. Respiratory: Negative for cough, shortness of breath and wheezing. Cardiovascular: Negative for chest pain, palpitations and leg swelling. Gastrointestinal: Negative for abdominal pain, blood in stool, constipation, diarrhea, nausea and vomiting. Genitourinary: Negative for dysuria, frequency and hematuria. Musculoskeletal: Positive for back pain and gait problem. Chronic right knee pain is unchanged Neurological: Negative for dizziness, syncope and headaches. Psychiatric/Behavioral: Negative for confusion, decreased concentration and sleep disturbance. PHYSICAL EXAM: BP 122/60 | Pulse 98 | Temp (!) 35 C (95 F) | Ht 1.651 m (5' 5") | Wt 72.9 kg (160 lb 11.2 oz) | SpO2 96% | BMI 26.74 kg/m | BSA 1.83 m Physical Exam Vitals and nursing note reviewed. Constitutional: General: She is not in acute distress. Appearance: Normal appearance. She is not toxic-appearing. HENT: Head: Normocephalic and atraumatic. Cardiovascular: Rate and Rhythm: Normal rate and regular rhythm. Heart sounds: Murmur heard. Pulmonary: Breath sounds: Normal breath sounds. No wheezing, [...] at baseline. Motor: No weakness. Gait: Gait abnormal. Psychiatric: Mood and Affect: Mood normal. Behavior: Behavior normal. Thought Content: Thought content normal. ASSESSMENT/PLAN History of TIA (transient ischemic attack) (Primary) Continue Clopidogrel and ASA Chronic pansinusitis - OTOLARYNGOLOGY REFERRAL OP Finish Doxycycline Type 2 diabetes mellitus with stage 3b chronic kidney disease, without long-term current use of insulin (HCC) - COMPREHENSIVE METABOLIC PANEL; Future; Expected date: 08/19/2023 - PHOSPHORUS; Future; Expected date: 08/19/2023 - CBC WITH WBC DIFFERENTIAL; Future; Expected date: 08/19/2023 Diet controlled Atherosclerosis of hoh coronary artery of hoh heart without angina pectoris Continue ASA Presence of Watchman left atrial appendage closure device S/P mitral valve clip implantation Paroxysmal atrial fibrillation (HCC) Continue Sotalol S/P Watchman Acquired hypothyroidism Continue Levothyroxine Obstructive sleep apnea of adult Tremor Iron deficiency anemia, unspecified iron deficiency anemia type Continue Ferrous Sulfate Type 2 diabetes mellitus with polyneuropathy (HCC) Current moderate episode of major depressive disorder without prior episode (HCC) Continue Sertraline Moderate persistent asthma without complication Continue Tiotropium and Levalbuterol Gastro-esophageal reflux disease without esophagitis Continue Pantoprazole Pure hypercholesterolemia Continue Atorvastatin History of endometrial cancer Severe tricuspid regurgitation Risk and functional assessment Hospital discharge follow-up - DISCH MED RECON CUR MED LIS Follow Up: Return in about 4 months (around 12/19/2023), or if symptoms worsen or fail to improve. Florentin Calvo DO documented in this encounter Nursing Notes * Hilda Awad LPN - 08/19/2023 10:09 AM EST States " could feel better" documented in this encounter Plan of Treatment Upcoming Encounters Date Type Department Care Team (Late st Contact Info) Description 09/02/2023 2:30 PM EST Home Visit [facility] [address] [place] [address] Michelle Hurt RN [address] [facility] [place] [address] 09/11/2023 3:30 PM EST Office Visit Cardiology, [facility] [address] [place] [address] Stephen Hewitt DO [address] [facility] [place] [address] 09/15/2023 8:00 AM EST Appointment Cardiac Studies [facility], [address] [place] [address] 10/14/2023 2:30 PM EST Office Visit Hematology/Oncology [facility] [address] [place] [address] Nereyda Metz CRNP [address] [place] [id number] 10/24/2023 2:30 PM EST Office Visit Gynecology/Oncology, [address] [place] [address] Vanessa Person PA-C [address] [place] [address] 11/04/2023 11:00 AM EDT Office Visit Otolaryngology [facility] [address] [facility] [place] [address] Cheri Castillo PA-C [facility] [address] 12/08/2023 2:20 PM EDT Office Visit Family Practice [address] [facility] [address] [place] [address] Florentin Clavo DO [address] [place] [address] 01/21/2024 2:40 PM EDT Office Visit Otolaryngology [facility] [address] [facility] [place] [address] Cheri [facility]illo [facility]C [facility] [address] 02/17/2024 3:30 PM EDT Office Visit Neph[facility], [facility] [address] [facility] [address] ZemaitisMichelle PA-C [address] [place] [address] 06/03/2024 2:15 PM EDT Office Visit [facility], [facility] [address] Wilbur Benavides DO [address] [place] [address] 08/09/2024 1:00 PM EST Nurse Only Ancillary [address] [facility] [address] [place] [address] College, Nurse Annual Wellness Visit [address] [facility] [address] [place] [address] Pending Results Name Type Priority Associated Diagnoses Date /Time COMPREHENSIVE METABOLIC PANEL Lab Routine Type 2 diabetes mellitus with stage 3b chronic kidney disease, without long-term current use of insulin (HCC) 08/19/2023 10:52 AM EST PHOSPHORUS Lab Routine Type 2 diabetes mellitus with stage 3b chronic kidney disease, without long-term current use of insulin (HCC) 08/19/2023 10:52 AM EST CBC WITH WBC DIFFERENTIAL Lab Routine Type 2 diabetes mellitus with stage 3b chronic kidney disease, without long-term current use of insulin (HCC) 08/19/2023 10:52 AM EST Scheduled Orders Name Type Priority Associated Diagnoses Orde r Schedule COMPREHENSIVE METABOLIC PANEL Lab Routine Type 2 diabetes mellitus with stage 3b chronic kidney disease, without long-term current use of insulin (HCC) Expected: 08/19/2023 (Approximate), Expires: 08/18/2024 PHOSPHORUS Lab Routine Type 2 diabetes mellitus with stage 3b chronic kidney disease, without long-term current use of insulin (HCC) Expected: 08/19/2023 (Approximate), Expires: 08/18/2024 CBC WITH WBC DIFFERENTIAL Lab Routine Type 2 diabetes mellitus with stage 3b chronic kidney disease, without long-term current use of insulin (HCC) Expected: 08/19/2023 (Approximate), Expires: 08/19/2024 Scheduled Referrals Name Type Priority Associated Diagnoses Orde r Schedule OTOLARYNGOLOGY REFERRAL OP Referral Within 10 days (routine) Chronic pansinusitis Ordered: 08/19/2023 Health Maintenance Due Date Last Done Comments Hepatitis B (1 of 3 - Risk 3-dose series) 2000 CKD PHOS USE SMARTSET [id number] 05/01/2023 090 02/2022, 04/03/2022, 12/05/2020, Additional history exists TSH 09/24/2023 09/24/2022, 0 10/2022, 02/12/2022, Additional history exists Diabetic Foot Exam 10/01/2023 10/01/2022, 0 10/26/2021, 12/05/2020, Additional history exists GFR 02/12/2024 08/13/2023, 0 02/2023, 07/03/2023, Additional history exists HbA1c 02/14/2024 2023, 01/25, 08/27/2022, Additional history exists Albumin/Creatinine Ratio 02/22/2024 023, 05/01/2022, 10/26/2021, Additional history exists Diabetic Eye Exam 05/22/2024 05/22/2023, , 05/22/2023, Additional history exists Depression Screening 05/23/2024 05/23/2023 CKD HGB USE SMARTSET 56070 08/13/202408/13, 07/31/2023, 07/31/2023, Additional history exists DXA [...] this encounter Medical Devices Implanted Type Area Collective Bargaining Specialist Device Identifier Shelf Expiration Date Model / Serial / Lot Cath Thermodilution 6fr - [id number] Implanted:Qty: 1 on 01/24/2023 by Wilbur Rivera MD at [facility] [employer]ERE [id number] 10/15/2024 [id number] / / [id number] Mirtaclip G4 - [id number] Implanted:Qty: 1 on 03/10/2023 at [facility] [employer] 11/19/2023 [id number] / / [id number] Device Watchman Flx 31mm - [id number] Implanted:Qty: 1 on 07/31/2023 by Wilbur Rivera MD at [facility] [employer] : INTRV CARD [id number] 12/02/2025 [id number] / / [id number] documented as of this encounter Visit Diagnoses Diagnosis History of TIA (transient ischemic attack)- Primary Transient ischemic attack (TIA), and cerebral infarction without residual deficits Chronic pansinusitis Other chronic sinusitis Type 2 diabetes mellitus with stage 3b chronic kidney disease, without long-term current use of insulin (HCC) Atherosclerosis of hoh coronary artery of hoh heart without angina pectoris Presence of Watchman left atrial appendage closure device S/P mitral valve clip implantation Paroxysmal atrial fibrillation (HCC) Atrial fibrillation Acquired [...] disease without esophagitis Esophageal reflux Pure hypercholesterolemia History of endometrial cancer Personal history of malignant neoplasm of other parts of uterus Severe tricuspid regurgitation Diseases of tricuspid valve Risk and functional assessment Screening for unspecified condition Hospital discharge follow-up Other follow-up examination documented in this encounter Advance Directives Documents on File Type Date Recorded Patient Manager Patient Expl anation Advance Directives and Living Will 11/29/2022 ADVANCE DIRECTIVE / LIVING WILL Power of Drapery Hemmer Automatic 11/29/2022 POWER OF A TTORNEY Advance Directives and Living Will 10/24/2014 ADVANCE DIRECTIVE / LIVING WILL Power of Drapery Hemmer Automatic 10/24/2014 POWER OF A TTORNEY Latest [...] the patient have Health Care Power of Drapery Hemmer Automatic? No Code Status History Code Status [...] Agents on File Name Relationship Healthcare Agent [facility] Communication [facility] Adult Child Health Care Agen t (per Health Care Power of Drapery Hemmer Automatic document) Care Teams Customer Service Dispatcher Relationship Specialty Start Date End Date Florentin Calvo DO [address] [facility] [place] [address] PCP - General Internal Medicine 03/24/13 documented as of this encounter
--- OUTSIDE RECORDS SUMMARY | 2023-08-22 20:02 | External Medical Summary ---
Author Name Unknown Address Unknown Organization [id number]:[facility] [address] [place] [address] Laboratory Report Ordering Provider Test Date Status ANTONIO EDMONDS 08/19/2023 10:52:31 Final Observation Date Value Abnormality Reference (Units ) Status Phosphate 08/19/2023 10:52:31 4.5 2.5-4.8 (m g/dL) Final Performing Location [facility] [address] [place] [address]
--- OUTSIDE RECORDS SUMMARY | 2023-08-22 20:02 | External Medical Summary ---
Author Name Unknown Address Unknown Organization [id number]:[facility] - [address] [facility] [address] Laboratory Report Ordering Provider Test Date Status ANTONIO EDMONDS 08/19/2023 10:52:31 Final Observation Date Value Abnormality Reference (Units ) Status Iron 08/19/2023 10:52:31 42 33-151 (ug /dL) Final Iron-binding capacity 08/19/2023 10:52:31 278 250-425 (ug/dL) Final Transferrin Sat % 08/19/2023 10:52:31 15 15 -55 (%) Final Performing Location [facility] - [address] [facility] [address]
--- OUTSIDE RECORDS SUMMARY | 2023-08-22 20:02 | External Medical Summary ---
Author Name Unknown Address Unknown Organization [id number]:[facility] [facility] [address] [place] [address] Laboratory Report Ordering Provider Test Date Status PARVIZ ORR 08/20/2023 11:38:41 Final Observation Date Value Abnormality Reference (Units ) Status WBC, Total 08/20/2023 11:38:41 9.40 4.00-10.8 0 (K/uL) Final RBC 08/20/2023 11:38:41 3.07 3.85-5.15 (M/uL) Final Hemoglobin 08/20/2023 11:38:41 9.6 Below low normal 12 .0-15.3 (g/dL) Final HCT 08/20/2023 11:38:41 29.4 Below low normal 36. 0-45.2 (%) Final MCV 08/20/2023 11:38:41 95.8 81.5-97.5 (fL) Final MCH 08/20/2023 11:38:41 31.3 27.0-34.0 (pg) Final MCHC 08/20/2023 11:38:41 32.7 32.0-36.0 (g/dL) Final RDW 08/20/2023 11:38:41 16.1 11.5-15.5 (%) Final Platelets 08/20/2023 11:38:41 239 140-400 (K /uL) Final MPV 08/20/2023 11:38:41 11.4 6.6-11.1 ( fL) Final Performing Location [facility] [place] [address] [place] [address]
[2023-08-22] MEDS: SODIUM CHLORIDE 0.9% 1,000 ML IV SCH (21:26)
--- NOTE | 2023-08-22 22:00 | History & Physical Report ---
Date of Service August 22, 2023 Assessment & Plan (1) Adult failure to thrive: (2) Generalized weakness: (3) S/P mitral valve clip implantation: (4) Presence of Watchman left atrial appendage closure device: (5) CKD (chronic kidney disease): (6) Anemia: (7) Depression: (8) Hypothyroidism: (9) SSS (sick sinus syndrome): Plan 82-year-old female who has a significant past medical history of CAD, history of PAF, presence of Watchman device, chronic diastolic CHF, severe tricuspid regurg, pulm hypertension, history of mitral valve clip implantation, T2DM with CKD stage IIIb and retinopathy, secondary hyperparathyroidism, hypothyroidism, hyperlipidemia, RADHA, asthma, GERD, history of Mnire's disease, anemia, history of TIA, depression, history of endometrial cancer and recent admission for stroke workup, admitted once more with generalized weakness. Generalized Weakness Failure to thrive Pt recently admitted and discharged on 08/15 after stroke work up Was seen by PT at that time who recommended home with family support. Was seen by her pcp today with frequent falls at home, 2 within the last week Per son, has been having progressive lower extremity weakness that causes her to slip and fall Pt denies LOC Outpt labs done on 08/21 with noted Cr of 2.4, head CT with no acute changes, continued sinus opacification EKG with noted paced rhythm, Echo from 08/15 with LVH, dilated atrium, EF 60- 65%, mild to moderate pulm HTN Hgb chronically low at baseline of approximately 8.5 UA with no signs of infection COVID test negative Chest xray notes cardiomegaly with pulm vascular congestion, chest CT pending. Electrolytes grossly within normal limits Cr on admission at 2.15 PT/OT orders placed once more for further evaluation Acute on Chronic Kidney disease Cr done prior to arrival was noted to be 2.4 in EPIC on 08/21 Cr in the ED of 2.15 Recent baseline ~1.9 Started on gentle IV hydration, per son po liquid intake reasonable at home Nephrology consult for further recs given worsening and persistent Avoid nephrotoxic meds and contrast, home torsemide currently on hold Monitor with AM labs Anemia Hgb chronically decreased, normocytic at this time Baseline ~8.5 Likely in setting of chronic kidney disease AM iron panel, folate and Vit b12 levels pending Continue home iron, folic acid and b12 supplementation Nephrology consulted-appreciate recs Chronic Sinusitis Noted on head imaging during last admission for stroke/TIA workup Noted once more on recent repeat head CT ordered by pcp Continue doxycycline, has about 3 more days remaining in 10 day course Due for outpt followup with ENT Pulmonary HTN Chest xray with noted pulmonary vascular congestion, cardiomegaly Echo with noted worsening pulm HTN Pt with no respiratory concerns, using oxygen qhs Consider pulm consult PAF 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 Rivera Cardiac pacemaker insitu 2/2 SSS not on anticoagulation due to severe GIB in past continue sotalol at current dosing per cardiology after concern that it might be CI with worsening kidney function Holding home torsemide as noted above Cardiology consult- appreciate further recs Hypothyroidism TSH elevated, t4 wnl Continue home levothyroxine T2DM diet controlled, last a1c 6.8 ISS RADHA O2 at HS HLD chronic,stable continue statin Diet: DMII DVT ppx: SCDs, on asa, plavix, hx of severe GIB in past DNR/DNI History of Present Illness Chief Complaint: generalized weakness Primary Care Provider: Florentin Calvo DO 82-year-old female who has a significant past medical history of CAD, history of PAF, presence of Watchman device, chronic diastolic CHF, severe tricuspid regurg, pulm hypertension, history of mitral valve clip implantation, T2DM with CKD stage IIIb and retinopathy, secondary hyperparathyroidism, hypothyroidism, hyperlipidemia, RADHA, asthma, GERD, history of Mnire's disease, anemia, history of TIA, depression, history of endometrial cancer and recent admission for stroke workup, admitted once more with generalized weakness. Son present, states that the progressive lower extremity weakness has been present prior to the last admission. It has just been getting progressively worse. Pt denies LOC when she falls. Had 2 falls in the last week. States it feels like her legs give way and then she slips and falls. Son notes Hx of knee "issues" states that she has been having injections into the right knee, unsure what they are. Pt denies dysuria but son notes she has had UTIs in the past where she has been asymptomatic. Son concerned about recent watchman placement and whether it is working as it should. Pt states that her appetite is decreased but does drink fluids quite a bit. Review of symptoms positive for chronic rhinorrhea and a very dry mouth. Pt lives at home with a of similar age with dementia who cannot help her much at home. Son states that he lives nearby. Allergies Allergy/AdvReac Type Severity Reaction Status Date / Time Sulfa (Sulfonamide Allergy Severe Severe Verified 08/22/23 19:31 Antibiotics) rxn: rash and hives celecoxib Allergy Intermediate Rash/Hives/ Verified 08/22/23 19:31 Itching. cephalexin Allergy Intermediate Rash/Hives/ Verified 08/22/23 19:31 Itching. furosemide Allergy Intermediate Rash/Hives/ Verified 08/22/23 19:31 Itching. gabapentin Allergy Intermediate Rash/Hives/ Verified 08/22/23 19:31 Itching. pregabalin Allergy Intermediate Rash/Hives/ Verified 08/22/23 19:31 Itching. meclizine Allergy Unknown Unknown Verified 08/22/23 19:31 methylprednisolone Allergy Unknown Rash/Hives/ Verified 08/22/23 19:31 Itching. Penicillins Allergy Unknown Unknown. Verified 08/22/23 19:31 prednisone Allergy Unknown Rash/Hives/ Verified 08/22/23 19:31 Itching. vancomycin Allergy Unknown Jodi Verified 08/22/23 19:31 syn. . nickel Allergy Unknown Verified 08/22/23 19:31 dexamethasone AdvReac Intermediate Steroid Verified 08/22/23 19:31 psychosis. Home Medications Medication Instructions Recorded Confirmed Type montelukast 10 mg tablet 10 mg PO PM 04/08/19 08/23/23 History ferrous sulfate 325 mg (65 mg 325 mg PO QAM 06/03/20 08/23/23 History iron) tablet atorvastatin 20 mg tablet 20 mg PO QAM 11/26/21 08/23/23 History cholecalciferol (vitamin D3) 50 100 mcg PO QAM 11/26/21 08/23/23 History mcg (2,000 unit) capsule (Vitamin D3) aspirin 81 mg tablet,delayed 81 mg PO HS 01/04/22 08/23/23 History release levalbuterol tartrate 45 1 puff inhalation Q4 PRN Shortness 08/07/22 08/23/23 History mcg/actuation aerosol inhaler Of Breath (Xopenex HFA) sertraline 100 mg tablet 150 mg PO QAM 08/07/22 08/23/23 History sotalol 80 mg tablet 40 mg PO AMPM 08/07/22 08/23/23 History cyanocobalamin (vitamin B-12) 100 100 mcg PO QAM 11/07/22 08/23/23 History mcg tablet (Vitamin B-12) folic acid 1 mg tablet 1 mg PO QAM 11/07/22 08/23/23 History tiotropium 2.5 mcg-olodaterol 2.5 2 puff inhalation QAM 11/07/22 08/23/23 H istory mcg/actuation mist for inhalation (Stiolto Respimat) torsemide 10 mg tablet 10 mg PO QAM 11/07/22 08/23/23 History ipratropium bromide 21 mcg (0.03 2 spray intranasal DAILY PRN 12/06/22 08/23/23 History %) nasal spray rhinorrhea pantoprazole 40 mg tablet,delayed 40 mg PO BID #60 tabs 12/09/22 08/23/23 Rx release allopurinol 300 mg tablet 300 mg PO HS 08/14/23 08/23/23 History clopidogrel 75 mg tablet 75 mg PO PM 08/14/23 08/23/23 History lorazepam 1 mg tablet 1 mg PO HS PRN sleep/anxiety 08/14/23 08/23/23 History doxycycline hyclate 100 mg tablet 100 mg PO BID 10 days #20 tabs 08/15/23 08/23/23 Rx levothyroxine 125 mcg capsule 125 mcg PO QAM 08/22/23 08/23/23 History Past Med/Surg History Medical History SSS (sick sinus syndrome) Chronic diastolic (congestive) heart failure TIA (transient ischemic attack) Nausea Leukocytosis Near syncope Hypotension Dehydration TIFFANY (acute kidney injury) Near syncope Elevated brain natriuretic peptide (BNP) level Pneumonia Atrial flutter Carotid artery aneurysm Prolonged QT interval Atrial fibrillation with RVR DM type 2 (diabetes mellitus, type 2) History of tobacco abuse Encounter for pre-operative examination Cholelithiasis Cholecystitis Chest pain at rest Pulmonary emphysema Osteoarthritis of right knee HTN (hypertension) RADHA (obstructive sleep apnea) Atrial fibrillation and flutter CKD (chronic kidney disease), stage III Meniere disease Depression Hypothyroidism Asthma, moderate persistent Surgical History History of hysterectomy History of cholecystectomy History of repair of left rotator cuff Hx of neck surgery H/O sinus surgery History of laminectomy Family History Father Diabetes Social History Smoking Status: Former smoker Tobacco Type: Cigarettes packs per day: 1.5; Cigarettes Per Day: 30; Second Hand Exposure: No; Do You Dip or Chew Tobacco: No; Hx Alcohol Use: No Hx Substance Use: No Preferred Language: Guinean Communication Ability: Effective Society Editor Required: No Beliefs That Will Affect Care: None marital status: Current Living Situation: Spouse Feels Safe at Home: Yes Assistive Devices: Hearing Aid - Right and Walker Review of Systems Review of Systems: All systems reviewed & are unremarkable except as noted in HPI & below Physical Exam Physical Exam: General: Alert, oriented. No acute distress Skin: No noted rashes or bruises Psych: Appropriate mood and affect Neuro: weakness in lower extremities bilaterally HEENT: NC/AT CV: RRR Resp: Breath sounds clear bilaterally, no increased effort of breathing. Abdomen: soft, nontender, nondistended. Extremities: No edema in lower extremities bilaterally. Results & Data Results & Data Vital Signs (Past 12 Hours) Vital Signs Temp Pulse Resp BP Pulse Ox O2 Del Method 08/22/23 12:52 36.8 C 65 20 111/56 L 98 Room Air (5) CKD (chronic kidney disease) Chronic kidney disease stage: unspecified stage Qualified Code(s): N18.9 - Chronic kidney disease, unspecified
--- OUTSIDE RECORDS SUMMARY | 2023-08-23 00:18 | External Medical Summary | Summary of Care ---
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 Cris Comments Is patient being transitioned from [facility] to Complex Case Management? No Reason for Visit * Reason Onset Date Comments Test Results 08/22/202308/22 Encounter Details Date Type Department Care Team (Late st Contact Info) Description 08/22/2023 Telephone Family Practice [address] [place] [address] [facility] [place] [address] Florentin Calvo DO [address] [place] [address] Test Results (08/22) Allergies Active Allergy Reactions Criticality Noted Date Comments Azithromycin Other (Please comment) 12/04/2021 QTC prolongation at [facility] Celecoxib Hives,Rash High 03/24/2013 Other [...] as of this encounter (statuses as of 08/22/2023) Medications Medication Sig Dispensed Refills Start Date End Date Status [employer] Art CommissionToCluepedia w/Device KitIndications:Type 2 diabetes mellitus with hemoglobin [...] for Wheezing. 15 g 12 06/13/2022 Active [employer] In Vitro Strip (Glucose Blood) Test blood sugars up to 2 times a day E11.9 200 Strip 3 12/20/2022 Active Vitamin B-12 100 MCG Oral Tablet (vitamin B-12) Take 1 Tablet by mouth in the morning. 30 Tablet 3 02/13/2023 Active Folic Acid 1 MG Oral TabletIndications:C hronic atrial fibrillation ([facility]) TAKE ONE TABLET BY MOUTH EVERY MORNING [...] Oral Tablet (Lipitor)Indication s:PVD (peripheral vascular disease) ([facility]),Type 2 diabetes mellitus with stage 3a chronic kidney disease and hypertension ([facility]) TAKE ONE TABLET BY MOUTH EVERY DAY DIRECTED 100 Tablet 3 03/31/2023 Active Ipratropium [place] 0.03 % Nasal Solution (Atrovent)Indicatio ns:Chronic rhinitis [...] bedtime. 90 Tablet 3 05/16/2023 Active Tiotropium [place]-Olodaterol 2.5-2.5 MCG/ACT Inhalation Aerosol Solution (Stiolto Respimat) [...] as of this encounter (statuses as of 08/22/2023) Active Problems Problem Noted Date Diagnosed Date Presence of Watchman left atrial appendage closu re device 07/31/2023 S/P mitral valve clip implantation 03/06/2023 Atherosclerosis of [place] 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 02/13/2023 Last Assessment & Plan: Continue statin, sotalol. 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 Assessment & Plan: Now just using [...] as of this encounter (statuses as of 08/22/2023) Resolved Problems Problem Noted Date Diagnosed Date [...] as of this encounter (statuses as of 08/22/2023) Immunizations Name Administration Dates Next Due COVID-19 mRNA, LNP-s, No Pre serve, 2-Dose Series (Moderna) 06/23/2021,10/25/2020,09/28/2020 COVID-19, LNP-s, No Preserve , Larry-sucrose, Ages 12+ ([employer]) 04/09/2022 COVID-19, MRNA-LNP, 23-24, P F, 30 MCG/0.3 mL, 12 YRS AND ABOVE, IM ([employer]ER-Comirnat) 06/09/2023 Covid-19, Mrna, Lnp-s, Pf, B ivalent, 30 Mcg, IM, 12 yrs and above ([employer]) 09/10/2022 HEP A - Hepatitis A (Adult [...] Answer Date Recorded PHQ Adult Total Score 2 08/21/2023 Hunger Vital Sign Answer Date Recorded Within the past 12 months, y ou worried that your food would run out before you got the money to buy more. Never true 08/21/20 23 Within the past 12 months, t he food you bought just didn't last and you didn't have money to get more. Never true 08/21/2023 Sex and Gender Information Value Date Recorded [...] or do you have serious difficulty hearing? No-NOME can hear w/ hearing aid 03/07/2023 Are [...] Telephone Encounter - Florentin Calvo DO - 08/22/2023 12:35 PM EST Report called to [facility] ED * Telephone Encounter - Hilda Awad LPN - 08/22/2023 11:05 AM EST Spoke to son, aware and will comply. Will send to case work aide Thank you * Telephone Encounter - Florentin Calvo DO - 08/22/2023 10:46 AM EST Hold Torsemide. Renal function not improving Patient volume depleted. Recommend ED evaluation Sotalol may need to be changed to another agent due to worsening renal function Refer to case management. Check with Agency on Aging to see if eligible for services. * Telephone Encounter - Ania Kebede LPN - 08/22/2023 10:24 AM EST Call placed to patient - spoke to son Bright. Relayed information from Dr. Calvo. Bright acknowledged understanding and will inform Inga. Per Bright - Inga states she feels a little better than she did yesterday. States her ribs are stillsore from the fall. Nothing new from yesterday. States she is eating and drinking. Bright Snell would like to discuss options for increased care needs for his parents. May be interested in Case Management; Account Financial Manager assistance. States he will discuss with Dr. Calvo at office visit 08/26/23. * Telephone Encounter - Ania Kebede LPN - 08/22/2023 10:18 AM EST ----- Message from Florentin Calvo DO sent at 08/22/2023 8:01 AM EST ----- Renal function has not improved Check status documented in this encounter Plan of Treatment Upcoming Encounters Date Type Department Care Team (Late st Contact Info) Description 08/26/2023 11:20 AM EST Office Visit Family Practice [address] [place] [address] [facility] [place] [address] Florentin Calvo DO [address] [facility], [place] [address] 09/02/2023 2:30 PM EST Home Visit [facility] [address] [place] [address] Michelle Hurt RN [address] [facility] [place] [address] 09/11/2023 3:30 PM EST Office Visit Cardiology, [facility] [address] [facility] [place] [address] Stephen Hewitt, [address] [facility] [place] [address] 09/15/2023 8:00 AM EST Appointment Cardiac Studies [facility], [place] [address] [place] [address] 10/14/2023 2:30 PM EST Office Visit Hematology/Oncology [facility] [address] [place] [address] Nereyda Metz CRNP [address] [facility] [address] 10/24/2023 2:30 PM EST Office Visit Gynecology/Oncology, [place] [address] [place] [address] Vanessa Elena PA-C [address] [place] [address] 11/04/2023 11:00 AM EDT Office Visit Otolaryngology [facility] [address] [facility] [place] [address] Cheri Castillo PA-C [address] [facility] [place] [address] 12/08/2023 2:20 PM EDT Office Visit Family Practice [address] [facility], [place] [address] [facility], [place] [address] Florentin Calvo, [address] [facility], [place] [address] 01/21/2024 2:40 PM EDT Office Visit Otolaryngology [facility] [address] [facility] [place] [address] Cheri Castillo PA-C [address] [facility] [place] [address] 02/17/2024 3:30 PM EDT Office Visit Nephrology, [facility] [address] [facility] [place] [address] Michelle Ivy PA-C [address] [facility] [place] [address] 06/03/2024 2:15 PM EDT Office Visit Ophthalmology, [facility] [address] [facility] [place] [address] Wilbur Benavides, DO [address] [facility] [place] [address] 08/09/2024 1:00 PM EST Nurse Only Ancillary [address] [facility] [address] [facility], [place] [address] College, Nurse Annual Wellness Visit [address] [address] Scheduled Referrals Name Type Priority Associated Diagnoses Orde r Schedule POPULATION HEALTH REFERRAL OP Referral Within 10 days (routine) Type 2 diabetes mellitus with hemoglobin A1c goal of less than 7.0% (HCC) Paroxysmal atrial fibrillation (HCC) Severe tricuspid regurgitation Chronic diastolic CHF (congestive heart failure) (HCC) Presence of Watchman left atrial appendage closure device 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 claudication Ordered: 08/22/2023 Health Maintenance Due Date Last Done Comments Hepatitis B (1 of 3 - Risk 3-dose series) 2000 TSH 09/24/2023 09/24/2022, 01/0 10/2022, 02/12/2022, Additional history exists Diabetic Foot Exam 10/01/2023 10/01/2022, 0 10/26/2021, 12/05/2020, Additional history exists HbA1c 02/14/2024 2023, 01/25, 08/27/2022, Additional history exists GFR 02/20/2024 08/21/2023, 07/26, 08/19/2023, Additional history exists Albumin/Creatinine Ratio 02/22/2024 023, 05/01/2022, 10/26/2021, Additional history exists Diabetic Eye Exam 05/22/2024 05/22/2023, , 05/22/2023, Additional history exists CKD PHOS USE SMARTSET 68410 08/19/202407/26, 05/01/2022, 04/03/2022, Additional history exists CKD HGB USE SMARTSET 55469 08/20/202408/20, 08/20/2023, 08/19/2023, Additional history exists Depression [...] encounter Medical Devices Implanted Type Area Manager Gift Device Identifier Shelf Expiration Date Model / Serial / Lot Cath Thermodilution 6fr - [id number] Implanted:Qty: 1 on 01/24/2023 by Wilbur Rivera MD at [facility] [employer] [id number] 10/15/2024 [id number] / / [id number] Mirtaclip G4 - [id number] Implanted:Qty: 1 on 03/10/2023 at [facility] [employer] 11/19/2023 [id number] / / [id number] Device Watchman Flx 31mm - [id number] Implanted:Qty: 1 on 07/31/2023 by Wilbur Rivera MD at [facility] [employer] : INTRV CARD [id number] 12/02/2025 [id number] documented as of this encounter Visit Diagnoses Diagnosis Type 2 diabetes mellitus with hemoglobin A1c goal of less than 7.0% ([facility])- Primary Paroxysmal atrial fibrillation (HCC) Atrial fibrillation Severe tricuspid regurgitation Diseases of tricuspid valve Chronic diastolic CHF (congestive heart failure) ([facility]) Chronic diastolic heart failure Presence of Watchman left atrial appendage closure device 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 claudication Spinal stenosis, lumbar region, without neurogenic claudication documented in this encounter Advance Directives Documents on File Type Date Recorded 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 No Code Status History Code Status Date [...] Agents on File Name Relationship Healthcare Agent [facility] Communication Bright Yuval Adult Child Health Care Agen t (per Health Care Power of Gi Tech document) Care Teams Simplex Printer Installer Relationship Specialty Start Date End Date Florentin Calvo DO [address] [facility] [place] [facility] [address] PCP - General Internal Medicine 03/24/13 documented as of this encounter
[2023-08-23] MEDS ORDERED: LORazepam 1 MG TAB PO PRN (03:18)
[2023-08-23] MEDS ORDERED: LEVALBUTEROL TARTRATE 15 GM HFA.AER.AD INH PRN (03:18)
[2023-08-23] MEDS ORDERED: ALUMINUM/MAGNESIUM SUSP 30 ML UDC PO PRN (04:17)
[2023-08-23] MEDS ORDERED: ACETAMINOPHEN 500 MG TAB PO PRN (04:17)
[2023-08-23] MEDS ORDERED: POLYETHYLENE (MIRALAX) 17 GM PACK PO PRN (04:17)
[2023-08-23] MEDS ORDERED: ONDANSETRON INJ 2 MG/ML 2 ML VIAL IV PRN (04:18)
[2023-08-23 05:41] LABS: Albumin Globulin Ratio 1.4 (0.9-2); BUN Creatinine Ratio 53.5 (10-20); Bilirubin,Total 0.3 mg/dl (0.2-1.0); Calcium 8.5 mg/dl (8.6-10.3); Creatinine Clr Calc Pharmacy 23.5 ml/min; Est GFR (African American) 28.3 ml/min; Est GFR (Non-African American) 24.4 ml/min; Globulin 2.2 gm/dl (2.5-4.0); Magnesium 2.1 mg/dl (1.7-2.4); Phosphorus 3.6 mg/dl (2.5-4.9); Potassium 4.4 mmol/L (3.5-5.1); Total Protein 5.2 gm/dl (6.0-8.3)
[2023-08-23] MEDS: LEVOTHYROXINE SODIUM 125 MCG TABLET PO SCH (05:59)
[2023-08-23] MEDS ORDERED: HEPARIN SOD 5,000 UNIT/0.5 ML VIAL SQ SCH (06:00)
[2023-08-23 06:03] LABS: Folate (Folic Acid),Ser orPlas > 22.30 ng/ml (>5.38)
[2023-08-23 06:04] LABS: Vitamin B12 924 pg/ml (180-914)
[2023-08-23 06:07] LABS: Ferritin 181.7 ng/ml (8-388)
[2023-08-23 06:21] LABS: Hematocrit (blood only) 19.6 % (37.0-47.0); Hemoglobin 6.5 g/dl (12.0-16.0); Mean Corpuscular Hgb Conc 33.2 g/dL (32.0-36.0); Mean Corpuscular Volume 93.3 fL (80.0-100.0); Mean Platelet Volume 11.2 fL (9.4-12.4); Platelet Count 170 K/uL (130-400); RDW Standard Deviation 54.7 fL (36.4-46.3); White Blood Count 8.96 K/ul (4.8-10.8)
[2023-08-23 06:26] LABS: Basophils # (auto) 0.04 K/uL (0.00-0.20); Basophils % (auto) 0.4 %; Eosinophils # (auto) 0.64 K/uL (0.00-0.50); Eosinophils % (auto) 7.1 %; Immature Granulocytes # (auto) 0.05 K/uL (0.01-0.20); Immature Granulocytes % (auto) 0.6 %; Lymphocytes % (auto) 16.7 %; Monocytes # (auto) 0.95 K/uL (0.11-0.59); Monocytes % (auto) 10.6 %; Neutrophils # (auto) 5.78 K/uL (1.40-6.50); Neutrophils % (auto) 64.6 %; Polychromasia 1+
[2023-08-23] MEDS ORDERED: SODIUM CHLORIDE 0.9% 250 ML IV PRN (07:18)
[2023-08-23] MEDS ORDERED: ACETAMINOPHEN 325 MG TAB PO ONE (08:00)
[2023-08-23] MEDS ORDERED: PANTOprazole 40 MG TAB PO SCH (09:00)
[2023-08-23] MEDS ORDERED: SOTALOL HCL 80 MG TAB PO SCH (09:00)
[2023-08-23] MEDS ORDERED: PHARMACIST DISCHARGE MED REC CONSULT PRN (09:16)
[2023-08-23] MEDS ORDERED: OPTIRAY 320 125ml IV ONE (09:25)
--- NOTE | 2023-08-23 09:30 | Hospitalist Progress Note ---
Date of Service August 23, 2023 Assessment & Plan (1) Adult failure to thrive: (2) Generalized weakness: (3) S/P mitral valve clip implantation: (4) Presence of Watchman left atrial appendage closure device: (5) CKD (chronic kidney disease): (6) Anemia: (7) Depression: (8) Hypothyroidism: (9) SSS (sick sinus syndrome): Plan 82-year-old female who has a significant past medical history of CAD, history of PAF, presence of Watchman device, chronic diastolic CHF, severe tricuspid regurg, pulm hypertension, history of mitral valve clip implantation, T2DM with CKD stage IIIb and retinopathy, secondary hyperparathyroidism, hypothyroidism, hyperlipidemia, RADHA, asthma, GERD, history of Mnire's disease, anemia, history of TIA, depression, history of endometrial cancer and recent admission for stroke workup, admitted once more with generalized weakness. 08/23-Stroke alert in AM, last known well of 8:50AM per nursing. Then noted slurred speech, slight facial droop, pt with headache, dizziness, heavy tongue and numbness Seen by telestroke neurologist from [facility] who recommended STOP aspirin and plavix. Advised to Stop Plavix indefinitely, continue aspirin once stable. Low suspicion for stroke, symptoms more likely from acute blood loss (Hgb 6.5) requiring transfusion. CT head and neck images reviewed by telestroke neurologist, which showed no acute stroke, recommended repeating MRI brain (pt had one recently on 08/15) if pt had persistent symptoms post-transfusion. Pt was also seen by [facility] Neurologist Dr Ray who was not aware of recommendations noted above and agreed to continue with the above after discussi on via telephone. GI consult for suspected GI bleed-appreciate recs Nephrology consult-appreciate recs. Pt did receive contrast for emergent neck CTA, follow Cr Cardiology consult- s/p watchman previously on plavix and aspirin. Also on sotalol 40mg BID in worsening CKD which is CI per pharmacy. Consider Vascular/?Neurosurg consult for not previously seen posterior cerebral artery multifocal stenoses (high grade on the right) noted on head imaging this admission. Pt's son Bright was updated via telephone and later at bedside. Generalized Weakness Failure to thrive Pt recently admitted and discharged on 08/15 after stroke work up Was seen by PT at that time who recommended home with family support. Was seen by her pcp today with frequent falls at home, 2 within the last week Per son, has been having progressive lower extremity weakness that causes her to slip and fall Pt denies LOC Outpt labs done on 08/21 with noted Cr of 2.4, head CT with no acute changes, continued sinus opacification EKG with noted paced rhythm, Echo from 08/15 with LVH, dilated atrium, EF 60- 65%, mild to moderate pulm HTN Hgb chronically low at baseline of approximately 8.5, dropped to 6.5 AM 08/23. Ordered to be transfused 2 Units UA with no signs of infection COVID test negative Chest xray notes cardiomegaly with pulm vascular congestion, chest CT pending. Electrolytes grossly within normal limits Cr on admission at 2.15 PT/OT orders placed once more for further evaluation Anemia Hgb chronically decreased, normocytic at this time Baseline ~8.5, dropped to 6.5 AM of 08/23 Dropped AM iron panel, folate and Vit b12 levels pending Continue home iron, folic acid and b12 supplementation Acute on Chronic Kidney disease Cr done prior to arrival was noted to be 2.4 in EPIC on 08/21 Cr in the ED of 2.15 Recent baseline ~1.9 Started on gentle IV hydration, per son po liquid intake reasonable at home Nephrology consult for further recs given worsening and persistent Avoid nephrotoxic meds and contrast, home torsemide currently on hold Monitor with AM labs Anemia Hgb chronically decreased, normocytic at this time Baseline ~8.5 Likely in setting of chronic kidney disease AM iron panel, folate and Vit b12 levels pending Continue home iron, folic acid and b12 supplementation Nephrology consulted-appreciate recs Chronic Sinusitis Noted on head imaging during last admission for stroke/TIA workup Noted once more on recent repeat head CT ordered by pcp Continue doxycycline, has about 3 more days remaining in 10 day course Due for outpt followup with ENT Pulmonary HTN Chest xray with noted pulmonary vascular congestion, cardiomegaly Echo with noted worsening pulm HTN Pt with no respiratory concerns, using oxygen qhs Consider pulm consult PAF 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 Rivera Cardiac pacemaker insitu 2/2 SSS not on anticoagulation due to severe GIB in past continue sotalol at current dosing per cardiology after concern that it might be CI with worsening kidney function Holding home torsemide as noted above Cardiology consult- appreciate further recs Hypothyroidism TSH elevated, t4 wnl Continue home levothyroxine T2DM diet controlled, last a1c 6.8 ISS RADHA O2 at HS HLD chronic,stable continue statin Diet: DMII DVT ppx: SCDs, on asa, plavix, hx of severe GIB in past DNR/DNI Admission and Anticipated Discharge Date Admission Date: August 22, 2023 Subjective Pt seen in the AM. Advised by nursing that there was concern for stroke as she was having slurred speech, and noted slight facial droop. Last known well about 8:50AM. Stroke alert called. Pt AAOx3, conversant with no noted slurred speech at the time of exam but did state that her tongue felt heavy. Also reported headache and dizziness. Review of Systems Review of Systems: All systems reviewed & are unremarkable except as noted in Subjective Physical Exam Physical Exam: General: Alert, oriented. No acute distress Skin:bruises on arms Psych: Appropriate mood and affect Neuro: weakness in lower extremities bilaterally HEENT: NC/AT CV: RRR Resp: Breath sounds clear bilaterally, no increased effort of breathing. Abdomen: soft, nontender, nondistended. Extremities: No edema in lower extremities bilaterally. Results & Data Results & Data Vital Signs (Past 12 Hours) Vital Signs Pulse Pulse Resp BP BP Pulse Ox O2 Del Method 08/23/23 08:46 61 08/23/23 06:39 63 19 110/78 94 Room Air 08/23/23 00:20 68 25 H 98 08/23/23 00:11 67 12 08/23/23 00:01 72 23 08/23/23 00:01 124/43 L 08/23/23 00:00 71 22 08/22/23 23:50 61 19 08/22/23 23:40 61 21 08/22/23 23:30 67 23 08/22/23 23:20 70 18 08/22/23 23:10 62 20 97 08/22/23 23:00 66 21 97 08/22/23 22:50 83 22 98 08/22/23 22:40 64 20 98 08/22/23 22:39 64 24 98 Room Air 08/22/23 22:00 68 21 132/51 L 98 Room Air Critical Care Time Prolonged Care Time I spent a total [id number] of prolonged care time coordinating, documenting, and providing care for this patient excluding time spent in the performance of separately billed services. Was called to bedside urgently by nursing advised to call stroke alert. Pt examined, stat labs and head imaging were ordered and interpreted, communicated with telestroke neurologist on phone initially, was present during telestroke neurology evaluation of patient, discussed case with specialists cardiology and nephrology. Son Bright updated via telephone and was later present at bedside and updated once more as well. Later case discussed via telephone with [facility] neurology after pt was seen by them and note and recommendations were given. (5) CKD (chronic kidney disease) Chronic kidney disease stage: unspecified stage Qualified Code(s): N18.9 - Chronic kidney disease, unspecified
[2023-08-23 09:44] LABS: Calcium 8.6 mg/dl (8.6-10.3); Magnesium 2.2 mg/dl (1.7-2.4); Potassium 4.9 mmol/L (3.5-5.1)
[2023-08-23 09:50] LABS: BUN Creatinine Ratio 54.1 (10-20); Creatinine Clr Calc Pharmacy 23.8 ml/min; Est GFR (African American) 28.7 ml/min; Est GFR (Non-African American) 24.7 ml/min; Phosphorus 3.5 mg/dl (2.5-4.9)
--- NOTE | 2023-08-23 09:52 | CT Scan Report ---
CT angio head w con, CT angio neck with con, CT head/brain wo con CLINICAL HISTORY: 83 years-old Female with slurred speech, facial droop. Acute stroke like symptom s COMPARISON STUDY: Head CT 08/14/2023, brain MRI 08/13/2023 TECHNIQUE: Unenhanced axial CT scan of th e brain is performed. Subsequently, following the IV administration of 118 cc of Optiray, CT angiogra m of the head and neck was performed from the aortic arch to the skull apex. Images are reviewed in t he axial, sagittal, and coronal planes. 3-D MIPS images are created and assessed. IV contrast was adm inistered without complication. All measurements were obtained according to NASCET criteria. A dose l owering technique was utilized adhering to the principles of ALARA. CT DOSE: 1124.49 mGy.cm (accession [id number]), 602.96 mGy.cm (accession [id number]) FINDINGS: CT BRAIN: There is no acute intracranial hemorrhage, midline shift, hydrocephalus, intracranial mass, territori al ischemia or abnormal extra-axial collections. No abnormal intra-axial or extra-axial enhancement. Involutional changes with chronic microvascular ischemic disease. Mastoid air cells and middle ear c avities are clear. No calvarial fracture. Chronic severe mucoperiosteal thickening of the frontal, et hmoid and axillary sinuses. Prior bilateral lens repair. CT ANGIOGRAM OF THE HEAD AND NECK: Three-vessel morphology of the thoracic aortic arch. Patency of the innominate and image subclavian a rteries. The common and internal carotid arteries are patent. Atherosclerosis of the carotid bulbs wi thout significant stenosis. Additional calcified plaque of the cavernous, clinoid and supraclinoid se gments. The bilateral anterior and middle cerebral arteries are also patent. The vertebral and basila r arteries are patent. Mild to moderate multifocal luminal narrowing of the posterior cerebral arteri es. There is high-grade stenosis of the P2 segment right posterior cerebral artery. There is no aneur ysm, additional high-grade stenosis, or proximal branch occlusion identified. Dural sinuses appear pa tent. Pulmonary emphysema. Intralobular septal thickening may represent a component of pulmonary edema. Pos toperative and degenerative changes of the cervical spine. Left subclavian pacer. IMPRESSION: 1. No acute intracranial abnormality. 2. Multifocal stenoses of the posterior cerebral arteries, high-grade on the right. 3. Otherwise unremarkable CTA of the head and neck. 4. Pulmonary emphysema. 5. Severe chronic paranasal sinus disease. ACT 112: Negative or not required by law. The above report was generated using voice recognition software. It may contain grammatical, syntax o r spelling errors. Electronically signed by: Talha Caballero M.D. 08/23/2023 9:50 AM
--- NOTE | 2023-08-23 10:05 | Nephrology Consultation ---
Date of Consultation August 23, 2023 Assessment & Plan (1) Acute renal insufficiency: Patient with acute kidney injury on CKD. Baseline creatinine of 1.5. Creatinine today of 1.9. Admission creatinine was 2.1. Etiology of worsening renal function likely prerenal azotemia in setting of GI bleed. Patient has also had multiple rounds of contrast recently and event today. She is high risk for worsening renal function. Electrolytes are stable no signs of volume overload. Will monitor renal function with daily BMP. Avoid further contrast. (2) Anemia: Patient with anemia likely due to GI bleed. Her hemoglobin was 6.5 with a BUN of 100. Patient is on aspirin and Plavix. GI evaluation pending. Continue to monitor and transfuse as needed. 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 Will continue to monitor closely. History of Present Illness Reason for Consultation: TIFFANY on CKD Requesting Physician: Ashley Wilkinson MD Attending Physician: Ashley Wilkinson MD History of Present Illness This is a 83-year-old female being seen for TIFFANY on CKD. Past medical history of CAD, PAF, presence of Watchman device, chronic diastolic CHF, severe tricuspid regurg, pulm hypertension, history of mitral valve clip implantation, T2DM with CKD stage IIIb baseline creatinine 1.5 who was admitted with weakness and recurrent falls. She was found to have creatinine of 2.1 and a BUN of 100. She has baseline anemia of 9-10 but hemoglobin has dropped to 6.5 this morning. Stroke alert was also called this morning and patient had a CTA of the neck. Patient also with recent hospitalization and workup for stroke during which she had CTA on 08/14/2023. She has been taking aspirin and Plavix. She also has history of severe GI bleed in the past. She is getting a unit of blood now. She reports improvement. Her speech has improved. She attributes difficulty in speech to dry tongue. Allergies Allergy/AdvReac Type Severity Reaction Status Date / Time Sulfa (Sulfonamide Allergy Severe Severe Verified 08/22/23 19:31 Antibiotics) rxn: rash and hives celecoxib Allergy Intermediate Rash/Hives/ Verified 08/22/23 19:31 Itching. cephalexin Allergy Intermediate Rash/Hives/ Verified 08/22/23 19:31 Itching. furosemide Allergy Intermediate Rash/Hives/ Verified 08/22/23 19:31 Itching. gabapentin Allergy Intermediate Rash/Hives/ Verified 08/22/23 19:31 Itching. pregabalin Allergy Intermediate Rash/Hives/ Verified 08/22/23 19:31 Itching. meclizine Allergy Unknown Unknown Verified 08/22/23 19:31 methylprednisolone Allergy Unknown Rash/Hives/ Verified 08/22/23 19:31 Itching. Penicillins Allergy Unknown Unknown. Verified 08/22/23 19:31 prednisone Allergy Unknown Rash/Hives/ Verified 08/22/23 19:31 Itching. vancomycin Allergy Unknown Jodi Verified 08/22/23 19:31 syn. . nickel Allergy Unknown Verified 08/22/23 19:31 dexamethasone AdvReac Intermediate Steroid Verified 08/22/23 19:31 psychosis. Home Medications Medication Instructions Recorded Confirmed Type montelukast 10 mg tablet 10 mg PO PM 04/08/19 08/23/23 History ferrous sulfate 325 mg (65 mg 325 mg PO QAM 06/03/20 08/23/23 History iron) tablet atorvastatin 20 mg tablet 20 mg PO QAM 11/26/21 08/23/23 History cholecalciferol (vitamin D3) 50 100 mcg PO QAM 11/26/21 08/23/23 History mcg (2,000 unit) capsule (Vitamin D3) aspirin 81 mg tablet,delayed 81 mg PO HS 01/04/22 08/23/23 History release levalbuterol tartrate 45 1 puff inhalation Q4 PRN Shortness 08/07/22 08/23/23 History mcg/actuation aerosol inhaler Of Breath (Xopenex HFA) sertraline 100 mg tablet 150 mg PO QAM 08/07/22 08/23/23 History sotalol 80 mg tablet 40 mg PO AMPM 08/07/22 08/23/23 History cyanocobalamin (vitamin B-12) 100 100 mcg PO QAM 11/07/22 08/23/23 History mcg tablet (Vitamin B-12) folic acid 1 mg tablet 1 mg PO QAM 11/07/22 08/23/23 History tiotropium 2.5 mcg-olodaterol 2.5 2 puff inhalation QAM 11/07/22 08/23/23 History mcg/actuation mist for inhalation (Stiolto Respimat) torsemide 10 mg tablet 10 mg PO QAM 11/07/22 08/23/23 History ipratropium bromide 21 mcg (0.03 2 spray intranasal DAILY PRN 12/06/22 08/23/23 History %) nasal spray rhinorrhea pantoprazole 40 mg tablet,delayed 40 mg PO BID #60 tabs 12/09/22 08/23/23 Rx release allopurinol 300 mg tablet 300 mg PO HS 08/14/23 08/23/23 History clopidogrel 75 mg tablet 75 mg PO PM 08/14/23 08/23/23 History lorazepam 1 mg tablet 1 mg PO HS PRN sleep/anxiety 08/14/23 08/23/23 History doxycycline hyclate 100 mg tablet 100 mg PO BID 10 days #20 tabs 08/15/23 08/23/23 Rx levothyroxine 125 mcg capsule 125 mcg PO QAM 08/22/23 08/23/23 History Patient History Medical History SSS (sick sinus syndrome) Chronic diastolic (congestive) heart failure TIA (transient ischemic attack) Nausea Leukocytosis Near syncope Hypotension Dehydration TIFFANY (acute kidney injury) Near syncope Elevated brain natriuretic peptide (BNP) level Pneumonia Atrial flutter Carotid artery aneurysm Prolonged QT interval Atrial fibrillation with RVR DM type 2 (diabetes mellitus, type 2) History of tobacco abuse Encounter for pre-operative examination Cholelithiasis Cholecystitis Chest pain at rest Pulmonary emphysema Osteoarthritis of right knee HTN (hypertension) RADHA (obstructive sleep apnea) Atrial fibrillation and flutter CKD (chronic kidney disease), stage III Meniere disease Depression Hypothyroidism Asthma, moderate persistent Surgical History History of hysterectomy History of cholecystectomy History of repair of left rotator cuff Hx of neck surgery H/O sinus surgery History of laminectomy Family History Father Diabetes Social History Smoking Status: Former smoker Tobacco Type: Cigarettes packs per day: 1.5; Cigarettes Per Day: 30; Second Hand Exposure: No; Do You Dip or Chew Tobacco: No; Hx Alcohol Use: No Hx Substance Use: No Preferred Language: Danish Communication Ability: Effective Yarn Spinner Required: No Beliefs That Will Affect Care: None marital status: Current Living Situation: Spouse Feels Safe at Home: Yes Assistive Devices: Hearing Aid - Right and Walker Review of Systems 2 Review of Systems: All other systems were reviewed and negative except as noted in HPI Physical Exam 2 Physical Exam: General exam: Appears comfortable, no acute distress HEENT: Pupils are equal and reactive to light Neck: No JVD, neck is supple trachea is midline Respiratory system: Clear breath sounds bilaterally. Gastrointestinal: Abdomen is soft, non distended, non tender, bowel sounds are present CVS: Regular rate and rhythm. No murmurs, rubs or gallops Musculoskeletal: No joint or muscle tenderness Extremities: Non tender, no edema, peripheral pulses are present Neuro: Oriented, no tremors, no focal neurological deficits Skin: No rashes Results & Data Vital Signs (Past 12 Hours) Vital Signs Temp Pulse Pulse Resp BP BP Pulse Ox 08/23/23 09:49 61 18 131/66 98 08/23/23 09:49 36.4 C L 60 20 139/63 97 08/23/23 08:52 64 20 120/67 97 08/23/23 08:46 61 08/23/23 08:00 60 17 120/57 L 95 08/23/23 07:46 63 20 105/54 L 95 08/23/23 06:39 63 19 110/78 94 08/23/23 00:20 68 25 H 98 08/23/23 00:11 67 12 08/23/23 00:01 72 23 08/23/23 00:01 124/43 L 08/23/23 00:00 71 22 08/22/23 23:50 61 19 08/22/23 23:40 61 21 08/22/23 23:30 67 23 08/22/23 23:20 70 18 08/22/23 23:10 62 20 97 08/22/23 23:00 66 21 97 08/22/23 22:50 83 22 98 08/22/23 22:40 64 20 98 08/22/23 22:39 64 24 98 O2 Del Method 08/23/23 09:49 Room Air 08/23/23 09:49 08/23/23 08:52 Room Air 08/23/23 08:46 08/23/23 08:00 Room Air 08/23/23 07:46 Room Air 08/23/23 06:39 Room Air 08/23/23 00:20 08/23/23 00:11 08/23/23 00:01 08/23/23 00:01 08/23/23 00:00 08/22/23 23:50 08/22/23 23:40 08/22/23 23:30 08/22/23 23:20 08/22/23 23:10 08/22/23 23:00 08/22/23 22:50 08/22/23 22:40 08/22/23 22:39 Room Air Laboratory Results 08/23/23 09:09 08/22/23 08/23/23 08/23/23 14:01 04:27 09:09 WBC 10.57 8.96 9.57 RBC 2.68 L 2.10 L 2.22 L MCV 92.5 93.3 95.9 MCH 31.0 31.0 30.6 MCHC 33.5 33.2 31.9 L RDW Std Deviation 54.9 H 54.7 H 57.3 H RDW Coeff of Francisco Javier 16.2 H 16.0 H 16.3 H Plt Count 220 170 167 MPV 11.2 11.2 11.3 Phosphorus 3.9 3.6 3.5 Albumin 3.8 3.0 L (3) CKD (chronic kidney disease) Chronic kidney disease stage: unspecified stage Qualified Code(s): N18.9 - Chronic kidney disease, unspecified
[2023-08-23] MEDS: CYANOCOBALAMIN (B-12) 100 MCG TABLET PO SCH (10:11)
[2023-08-23] MEDS: CHOLECALCIFEROL 1,000 UNITS 25 MCG TAB PO SCH (10:11)
[2023-08-23] MEDS: ATORVASTATIN 20 MG TAB PO SCH (10:11)
[2023-08-23] MEDS: FERROUS SULFATE 325 MG TAB PO SCH (10:11)
[2023-08-23] MEDS: DOXYCYCLINE HYCLATE 100 MG CAP PO SCH ×2 (10:11→21:39)
[2023-08-23] MEDS: FOLIC ACID 1 MG TAB PO SCH (10:11)
[2023-08-23] MEDS: SERTRALINE HCL 50 MG TABLET PO SCH (10:11)
[2023-08-23] MEDS: SODIUM CHLORIDE 0.9% 1,000 ML IV SCH (10:12)
[2023-08-23] MEDS: UMECLIDINIUM/VILANTEROL 62.5/25MCG 7 PUFFS/INHALER INH SCH (10:12)
[2023-08-23 10:19] LABS: Hematocrit (blood only) 21.3 % (37.0-47.0); Hemoglobin 6.8 g/dl (12.0-16.0); Mean Corpuscular Hemoglobin 30.6 pg (25.0-34.0); Mean Corpuscular Hgb Conc 31.9 g/dL (32.0-36.0); Mean Corpuscular Volume 95.9 fL (80.0-100.0); Mean Platelet Volume 11.3 fL (9.4-12.4); Platelet Count 167 K/uL (130-400); RDW Coefficient of Variation 16.3 % (11.5-14.5); RDW Standard Deviation 57.3 fL (36.4-46.3); Red Blood Count 2.22 M/uL (4.20-5.40); White Blood Count 9.57 K/ul (4.8-10.8)
--- NOTE | 2023-08-23 10:19 | CT Scan Report ---
CT chest diagnostic wo con CLINICAL HISTORY: 83 years-old Female with weakness, pulm vasc congestion, cardiomegaly. Acute weakn ess with cardiomegaly TECHNIQUE: Multiaxial CT images of the chest were performed without contrast. A dose lowering techni que was utilized adhering to the principles of ALARA. COMPARISON: CTA neck of same day, chest CT 01/04/2022 FINDINGS: 9 mm hypodense left thyroid nodule. 11 mm subcarinal lymph node is likely benign. Trace per icardial effusion. Moderate cardiomegaly with moderate coronary artery calcifications. Left atrial ex clusion device. Left subclavian pacer. Intralobular septal thickening. Mild pulmonary emphysema. Stable 3 mm groundglass right apical pulmon patti nodule, image 36. Mild bibasilar ground glass densities. Bronchial wall thickening. Central airwa ys are patent. No airspace consolidation typical for pneumonia. Cortical thinning of the kidneys with bilateral renal cysts. Cholecystectomy. Atrophy of the pancreas . Unremarkable soft tissues. No acute fracture. Partially imaged cervical spinal fusion hardware. IMPRESSION: 1. Cardiomegaly with mild pulmonary edema. 2. Emphysema. 3. Mild mediastinal lymphadenopathy, likely reactive. 4. Trace pericardial effusion. 5. Cholecystectomy. ACT 112: Negative or not required by law. Electronically signed by: Talha Caballero M.D. 08/23/2023 10:16 AM
[2023-08-23 10:21] LABS: Basophils # (auto) 0.05 K/uL (0.00-0.20); Basophils % (auto) 0.5 %; Eosinophils % (auto) 5.2 %; Immature Granulocytes # (auto) 0.05 K/uL (0.01-0.20); Immature Granulocytes % (auto) 0.5 %; Lymphocytes # (auto) 1.07 K/uL (1.20-3.40); Lymphocytes % (auto) 11.2 %; Monocytes # (auto) 0.69 K/uL (0.11-0.59); Monocytes % (auto) 7.2 %; Neutrophils # (auto) 7.21 K/uL (1.40-6.50); Neutrophils % (auto) 75.4 %; Polychromasia 1+; Tear Drop Cells 1+
[2023-08-23] MEDS ORDERED: GLUCOSE 40% GEL 15 GM TUBE PO PRN (10:34)
[2023-08-23] MEDS ORDERED: CARBOHYDRATES FOR HYPOGLYCEMIA PO PRN (10:34)
[2023-08-23] MEDS ORDERED: GLUCAGON FOR INJ 1 MG VIAL SQ PRN (10:34)
[2023-08-23] MEDS ORDERED: DEXTROSE 50% 50 ML SYRINGE IV PRN (10:34)
[2023-08-23] MEDS ORDERED: GLUCOSE 10 TAB/TUBE PO PRN (10:34)
--- NOTE | 2023-08-23 12:45 | Neurology Consultation ---
Date of Consultation August 23, 2023 Assessment & Plan (1) Stroke-like symptoms: Dysarthria- now resolved Recommend continued stroke work up to include the following: MRI brain without contrast Echocardiogram as part of complete stroke workup Continue frequent neurological assessments Obtain stat CT brain without contrast for any acute neurological decline Continue to monitor/control blood pressure & blood glucose Metabolic workup should include hgbA1c, fasting lipids, homocysteine, TSH, D Dimer Continue daily ASA, monitor for s/s of hemorrhage Recommend increase daily atorvastatin to at least 40mg PO daily Consider addition of Plavix for at least 21 days Ok from neurology perspective for VTE prophylaxis PT/OT/SLT to eval and treat Telehealth Consultation Telehealth Information Telehealth Information: I performed this visit using a real-time telehealth connection between my location and the patients location ([facility]). After connecting through interactive tele-video, patient was identified by name and date of and/or wristband check.Patient (or authorized healthcare sales representative church [employer]) was informed that this was a telemedicine visit and it was being conducted confidentially over secure lines. My office door was closed and no one else was present in the room with me.Patient (or authorized healthcare sales representative church [employer]) provided consent to proceed with the visit, expressed an understanding of privacy and security of the telemedicine visit, and gave permission to have a hospital sales representative church furniture in the room in order to assist with the visit and to conduct portions of the visit, as needed. I informed the patient (or authorized healthcare sales representative church [employer]) that I reviewed their record and presented the opportunity for them to ask any questions regarding the visit today. The patient agreed to participate. History of Present Illness Reason for Consultation: Slurred speech Requesting Physician: Dr. Wilkinson Attending Physician: Ashley Wilkinson MD History of Present Illness 82yo female presented with ongoing generalized weakness/worsening lower extremity weakness and unfortunately demonstrated dysarthria this AM prompting stroke alert activation. Fortunately all symptoms resolved at this time no reported new symptoms. She continues to demonstrate BLE weakness compared to BUE but no evidence of asymmetry in motor strength or coordination. She reports ambulation utilizing walker at her baseline. Currently denies cephalgia or cervicalgia. Denies chest pain/palpitations or shortness of breath. No reported changes in vision hearing dizziness syncope seizure like activity or paresthesia. Denies recent fevers chills nausea vomiting changes in bowels or bladder. Denies recent medication changes, recent illness or sick contacts, no reported recent travel. Past medical hx significant for DM, paroxysmal AFIB status post watchman device implantation, HTN, CAD, cardiac valvular disease. HTN hyperlipidemia RADHA as well as asthma anemia and ovarian CA. Performed televideo consultation in presence of multilple family members at bedside. All questions answered. Allergies Allergy/AdvReac Type Severity Reaction Status Date / Time Sulfa (Sulfonamide Allergy Severe Severe Verified 08/22/23 19:31 Antibiotics) rxn: rash and hives celecoxib Allergy Intermediate Rash/Hives/ Verified 08/22/23 19:31 Itching. cephalexin Allergy Intermediate Rash/Hives/ Verified 08/22/23 19:31 Itching. furosemide Allergy Intermediate Rash/Hives/ Verified 08/22/23 19:31 Itching. gabapentin Allergy Intermediate Rash/Hives/ Verified 08/22/23 19:31 Itching. pregabalin Allergy Intermediate Rash/Hives/ Verified 08/22/23 19:31 Itching. meclizine Allergy Unknown Unknown Verified 08/22/23 19:31 methylprednisolone Allergy Unknown Rash/Hives/ Verified 08/22/23 19:31 Itching. Penicillins Allergy Unknown Unknown. Verified 08/22/23 19:31 prednisone Allergy Unknown Rash/Hives/ Verified 08/22/23 19:31 Itching. vancomycin Allergy Unknown Jodi Verified 08/22/23 19:31 syn. . nickel Allergy Unknown Verified 08/22/23 19:31 dexamethasone AdvReac Intermediate Steroid Verified 08/22/23 19:31 psychosis. Home Medications Medication Instructions Recorded Confirmed Type montelukast 10 mg tablet 10 mg PO PM 04/08/19 08/23/23 History ferrous sulfate 325 mg (65 mg 325 mg PO QAM 06/03/20 08/23/23 History iron) tablet atorvastatin 20 mg tablet 20 mg PO QAM 11/26/21 08/23/23 History cholecalciferol (vitamin D3) 50 100 mcg PO QAM 11/26/21 08/23/23 History mcg (2,000 unit) capsule (Vitamin D3) aspirin 81 mg tablet,delayed 81 mg PO HS 01/04/22 08/23/23 History release levalbuterol tartrate 45 1 puff inhalation Q4 PRN Shortness 08/07/22 08/23/23 History mcg/actuation aerosol inhaler Of Breath (Xopenex HFA) sertraline 100 mg tablet 150 mg PO QAM 08/07/22 08/23/23 History sotalol 80 mg tablet 40 mg PO AMPM 08/07/22 08/23/23 History cyanocobalamin (vitamin B-12) 100 100 mcg PO QAM 11/07/22 08/23/23 History mcg tablet (Vitamin B-12) folic acid 1 mg tablet 1 mg PO QAM 11/07/22 08/23/23 History tiotropium 2.5 mcg-olodaterol 2.5 2 puff inhalation QAM 11/07/22 08/23/23 History mcg/actuation mist for inhalation (Stiolto Respimat) torsemide 10 mg tablet 10 mg PO QAM 11/07/22 08/23/23 History ipratropium bromide 21 mcg (0.03 2 spray intranasal DAILY PRN 12/06/22 08/23/23 History %) nasal spray rhinorrhea pantoprazole 40 mg tablet,delayed 40 mg PO BID #60 tabs 12/09/22 08/23/23 Rx release allopurinol 300 mg tablet 300 mg PO HS 08/14/23 08/23/23 History clopidogrel 75 mg tablet 75 mg PO PM 08/14/23 08/23/23 History lorazepam 1 mg tablet 1 mg PO HS PRN sleep/anxiety 08/14/23 08/23/23 History doxycycline hyclate 100 mg tablet 100 mg PO BID 10 days #20 tabs 08/15/23 08/23/23 Rx levothyroxine 125 mcg capsule 125 mcg PO QAM 08/22/23 08/23/23 History Patient History Medical History SSS (sick sinus syndrome) Chronic diastolic (congestive) heart failure TIA (transient ischemic attack) Nausea Leukocytosis Near syncope Hypotension Dehydration TIFFANY (acute kidney injury) Near syncope Elevated brain natriuretic peptide (BNP) level Pneumonia Atrial flutter Carotid artery aneurysm Prolonged QT interval Atrial fibrillation with RVR DM type 2 (diabetes mellitus, type 2) History of tobacco abuse Encounter for pre-operative examination Cholelithiasis Cholecystitis Chest pain at rest Pulmonary emphysema Osteoarthritis of right knee HTN (hypertension) RADHA (obstructive sleep apnea) Atrial fibrillation and flutter CKD (chronic kidney disease), stage III Meniere disease Depression Hypothyroidism Asthma, moderate persistent Surgical History History of hysterectomy History of cholecystectomy History of repair of left rotator cuff Hx of neck surgery H/O sinus surgery History of laminectomy Family History Father Diabetes Social History Smoking Status: Former smoker Tobacco Type: Cigarettes packs per day: 1.5; Cigarettes Per Day: 30; Second Hand Exposure: No; Do You Dip or Chew Tobacco: No; Hx Alcohol Use: No Hx Substance Use: No Preferred Language: Yoruba Communication Ability: Effective Head Of Music Required: No Beliefs That Will Affect Care: None marital status: Current Living Situation: Spouse Feels Safe at Home: Yes Assistive Devices: Hearing Aid - Right and Walker Physical Exam Neurological Examination: Mental Status: Awake and alert. Oriented to person, place, and time. Fluency naming repetition and comprehension appear grossly intact. Affect remains appropriate. CN testing: I: Denies changes in ability to smell II:Reports no changes in visual acuity III/IV/: No evidence of gaze preference, hippus, nystagmus or roving eye movements V: Facial sensation reportedly grossly intact to light touch bilaterally VII: Facial movements appear without evidence of asymmetry VIII: Hearing appears grossly intact to loud voice bilaterally IX/X: Palate appears to elevate symmetrically XI: Shoulder shrug appears symmetric/ grossly intact bilaterally XII: Tongue protrudes midline without evidence of biting Motor exam: Strength appears symmetric in all extremities, decreased motor strength BLE Sensory: Sensation is reportedly grossly intact throughout Coordination: No apparent evidence of dysmetria or dysdiadochokinesia Reflexes: Deferred Gait: Deferred Results & Data Vital Signs (Past 12 Hours) Vital Signs Temp Pulse Pulse Resp BP BP Pulse Ox 08/23/23 12:20 36.6 C 65 16 153/77 H 95 08/23/23 11:50 36.5 C 61 16 122/62 96 08/23/23 10:50 36.4 C L 60 16 127/66 96 08/23/23 10:35 36.5 C 60 21 108/68 97 08/23/23 10:20 36.5 C 86 20 128/81 96 08/23/23 10:05 36.5 C 65 21 128/59 L 97 08/23/23 09:49 61 18 131/66 98 08/23/23 09:49 36.4 C L 60 20 139/63 97 08/23/23 08:52 64 20 120/67 97 08/23/23 08:46 61 08/23/23 08:00 60 17 120/57 L 95 08/23/23 07:46 63 20 105/54 L 95 08/23/23 06:39 63 19 110/78 94 O2 Del Method 08/23/23 12:20 08/23/23 11:50 08/23/23 10:50 08/23/23 10:35 08/23/23 10:20 08/23/23 10:05 08/23/23 09:49 Room Air 08/23/23 09:49 08/23/23 08:52 Room Air 08/23/23 08:46 08/23/23 08:00 Room Air 08/23/23 07:46 Room Air 08/23/23 06:39 Room Air Laboratory Results Abnormal lab results 08/22/23 08/23/23 08/23/23 Range/Units 14:01 04:27 08:03 RBC 2.68 L 2.10 L (4.20-5.40) M/uL Hgb 8.3 L 6.5 L* (12.0-16.0) g/dl Hct 24.8 L 19.6 L* (37.0-47.0) % MCHC (32.0-36.0) g/dL RDW Std Deviation 54.9 H 54.7 H (36.4-46.3) fL RDW Coeff of Francisco Javier 16.2 H 16.0 H (11.5-14.5) % Neut # (Auto) 7.43 H (1.40-6.50) K/uL Lymph # (Auto) (1.20-3.40) K/uL Hamblen # (Auto) 0.97 H 0.95 H (0.11-0.59) K/uL Eos # (Auto) 0.64 H (0.00-0.50) K/uL Chloride 109 H (98-107) mmol/L Carbon Dioxide (21-32) mmol/L BUN 100 H 100 H (6-23) mg/dl Creatinine 2.15 H 1.87 H (0.6-1.2) mg/dl BUN/Creatinine Ratio 46.5 H 53.5 H (10-20) Glucose 106 H (70-99(Fasting)) mg/dl Calcium 8.5 L (8.6-10.3) mg/dl TIBC 220 L (250-450) mcg/dl Alkaline Phosphatase 172 H 129 H (34-104) U/L Total Protein 5.2 L D (6.0-8.3) gm/dl Albumin 3.0 L (3.4-5.0) gm/dl Globulin 2.2 L (2.5-4.0) gm/dl Vitamin B12 924 H (180-914) pg/ml TSH 9.531 H (0.300-4.500) uIu/ml Crossmatch See Detail 08/23/23 Range/Units 09:09 RBC 2.22 L (4.20-5.40) M/uL Hgb 6.8 L* (12.0-16.0) g/dl Hct 21.3 L (37.0-47.0) % MCHC 31.9 L (32.0-36.0) g/dL RDW Std Deviation 57.3 H (36.4-46.3) fL RDW Coeff of Francisco Javier 16.3 H (11.5-14.5) % Neut # (Auto) 7.21 H (1.40-6.50) K/uL Lymph # (Auto) 1.07 L (1.20-3.40) K/uL Hamblen # (Auto) 0.69 H (0.11-0.59) K/uL Eos # (Auto) (0.00-0.50) K/uL Chloride 110 H (98-107) mmol/L Carbon Dioxide 20 L (21-32) mmol/L BUN 100 H (6-23) mg/dl Creatinine 1.85 H (0.6-1.2) mg/dl BUN/Creatinine Ratio 54.1 H (10-20) Glucose 127 H (70-99(Fasting)) mg/dl Calcium (8.6-10.3) mg/dl TIBC (250-450) mcg/dl Alkaline Phosphatase (34-104) U/L Total Protein (6.0-8.3) gm/dl Albumin (3.4-5.0) gm/dl Globulin (2.5-4.0) gm/dl Vitamin B12 (180-914) pg/ml TSH (0.300-4.500) uIu/ml Crossmatch Diagnostic Findings Chest X-Ray 08/22/23 12:56 XR chest 1V not portable HISTORY: 83 years-old Female Weakness acute weakness COMPARISON: 11/07/2022 TECHNIQUE: PA view of the chest FINDINGS: Cardiac silhouette is enlarged. There is a left subclavian pacer. Surgical clips project over the left heart border right upper quadrant. No pneumothorax, pleural effusion or airspace consolidation. Pulmonary vascular congestion. Fusion hardware noted within the cervical spine. Cholecystectomy. Left atrial exclusion device. IMPRESSION: Cardiomegaly with pulmonary vascular congestion. ACT 112: Negative or not required by law. The above report was generated using voice recognition software. It may contain grammatical, syntax or spelling errors. Electronically signed by: Talha Caballero M.D. 08/22/2023 1:[address] 08/23/23 08:00 CT chest diagnostic wo con CLINICAL HISTORY: 83 years-old Female with weakness, pulm vasc congestion, cardiomegaly. Acute weakness with cardiomegaly TECHNIQUE: Multiaxial CT images of the chest were performed without contrast. A dose lowering technique was utilized adhering to the principles of ALARA. COMPARISON: CTA neck of same day, chest CT 01/04/2022 FINDINGS: 9 mm hypodense left thyroid nodule. 11 mm subcarinal lymph node is likely benign. Trace pericardial effusion. Moderate cardiomegaly with moderate coronary artery calcifications. Left atrial exclusion device. Left subclavian pacer. Intralobular septal thickening. Mild pulmonary emphysema. Stable 3 mm groundglass right apical pulmonary nodule, image 36. Mild bibasilar ground glass densities. Bronchial wall thickening. Central airways are patent. No airspace consolidation typical for pneumonia. Cortical thinning of the kidneys with bilateral renal cysts. Cholecystectomy. Atrophy of the pancreas. Unremarkable soft tissues. No acute fracture. Partially imaged cervical spinal fusion hardware. IMPRESSION: 1. Cardiomegaly with mild pulmonary edema. 2. Emphysema. 3. Mild mediastinal lymphadenopathy, likely reactive. 4. Trace pericardial effusion. 5. Cholecystectomy. ACT 112: Negative or not required by law. Electronically signed by: Talha Caballero M.D. 08/23/2023 10:[address] 08/23/23 09:05 CT angio head w con, CT angio neck with con, CT head/brain wo con CLINICAL HISTORY: 83 years-old Female with slurred speech, facial droop. Acute stroke like symptoms COMPARISON STUDY: Head CT 08/14/2023, brain MRI 08/13/2023 TECHNIQUE: Unenhanced axial CT scan of the brain is performed. Subsequently, following the IV administration of 118 cc of Optiray, CT angiogram of the head and neck was performed from the aortic arch to the skull apex. Images are reviewed in the axial, sagittal, and coronal planes. 3-D MIPS images are created and assessed. IV contrast was administered without complication. All measurements were obtained according to NASCET criteria. A dose lowering technique was utilized adhering to the principles of ALARA. CT DOSE: 1124.49 mGy.cm (accession [id number]), 602.96 mGy.cm (accession [id number]) FINDINGS: CT BRAIN: There is no acute intracranial hemorrhage, midline shift, hydrocephalus, intracranial mass, territorial ischemia or abnormal extra-axial collections. No abnormal intra-axial or extra-axial enhancement. Involutional changes with chronic microvascular ischemic disease. Mastoid air cells and middle ear cavities are clear. No calvarial fracture. Chronic severe mucoperiosteal thickening of the frontal, ethmoid and axillary sinuses. Prior bilateral lens repair. CT ANGIOGRAM OF THE HEAD AND NECK: Three-vessel morphology of the thoracic aortic arch. Patency of the innominate and image subclavian arteries. The common and internal carotid arteries are patent. Atherosclerosis of the carotid bulbs without significant stenosis. Additional calcified plaque of the cavernous, clinoid and supraclinoid segments. The bilateral anterior and middle cerebral arteries are also patent. The vertebral and basilar arteries are patent. Mild to moderate multifocal luminal narrowing of the posterior cerebral arteries. There is high-grade stenosis of the P2 segment right posterior cerebral artery. There is no aneurysm, additional high-grade stenosis, or proximal branch occlusion identified. Dural sinuses appear patent. Pulmonary emphysema. Intralobular septal thickening may represent a component of pulmonary edema. Postoperative and degenerative changes of the cervical spine. Left subclavian pacer. IMPRESSION: 1. No acute intracranial abnormality. 2. Multifocal stenoses of the posterior cerebral arteries, high-grade on the right. 3. Otherwise unremarkable CTA of the head and neck. 4. Pulmonary emphysema. 5. Severe chronic paranasal sinus disease. ACT 112: Negative or not required by law. The above report was generated using voice recognition software. It may contain grammatical, syntax or spelling errors. Electronically signed by: Talha Caballero M.D. 08/23/2023 9:50 AM Head CTA 08/23/23 09:16 CT angio head w con, CT angio neck with con, CT head/brain wo con CLINICAL HISTORY: 83 years-old Female with slurred speech, facial droop. Acute stroke like symptoms COMPARISON STUDY: Head CT 08/14/2023, brain MRI 08/13/2023 TECHNIQUE: Unenhanced axial CT scan of the brain is performed. Subsequently, following the IV administration of 118 cc of Optiray, CT angiogram of the head and neck was performed from the aortic arch to the skull apex. Images are reviewed in the axial, sagittal, and coronal planes. 3-D MIPS images are created and assessed. IV contrast was administered without complication. All measurements were obtained according to NASCET criteria. A dose lowering technique was utilized adhering to the principles of ALARA. CT DOSE: 1124.49 mGy.cm (accession [id number]), 602.96 mGy.cm (accession [id number]) FINDINGS: CT BRAIN: There is no acute intracranial hemorrhage, midline shift, hydrocephalus, intracranial mass, territorial ischemia or abnormal extra-axial collections. No abnormal intra-axial or extra-axial enhancement. Involutional changes with chronic microvascular ischemic disease. Mastoid air cells and middle ear cav ities are clear. No calvarial fracture. Chronic severe mucoperiosteal thickening of the frontal, ethmoid and axillary sinuses. Prior bilateral lens repair. CT ANGIOGRAM OF THE HEAD AND NECK: Three-vessel morphology of the thoracic aortic arch. Patency of the innominate and image subclavian arteries. The common and internal carotid arteries are patent. Atherosclerosis of the carotid bulbs without significant stenosis. Additional calcified plaque of the cavernous, clinoid and supraclinoid segments. The bilateral anterior and middle cerebral arteries are also patent. The vertebral and basilar arteries are patent. Mild to moderate multifocal luminal narrowing of the posterior cerebral arteries. There is high-grade stenosis of the P2 segment right posterior cerebral artery. There is no aneurysm, additional high-grade stenosis, or proximal branch occlusion identified. Dural sinuses appear patent. Pulmonary emphysema. Intralobular septal thickening may represent a component of pulmonary edema. Postoperative and degenerative changes of the cervical spine. Left subclavian pacer. IMPRESSION: 1. No acute intracranial abnormality. 2. Multifocal stenoses of the posterior cerebral arteries, high-grade on the right. 3. Otherwise unremarkable CTA of the head and neck. 4. Pulmonary emphysema. 5. Severe chronic paranasal sinus disease. ACT 112: Negative or not required by law. The above report was generated using voice recognition software. It may contain grammatical, syntax or spelling errors. Electronically signed by: Talha Caballero M.D. 08/23/2023 9:50 AM Neck CTA 08/23/23 09:16 CT angio head w con, CT angio neck with con, CT head/brain wo con CLINICAL HISTORY: 83 years-old Female with slurred speech, facial droop. Acute stroke like symptoms COMPARISON STUDY: Head CT 08/14/2023, brain MRI 08/13/2023 TECHNIQUE: Unenhanced axial CT scan of the brain is performed. Subsequently, following the IV administration of 118 cc of Optiray, CT angiogram of the head and neck was performed from the aortic arch to the skull apex. Images are reviewed in the axial, sagittal, and coronal planes. 3-D MIPS images are created and assessed. IV contrast was administered without complication. All measurements were obtained according to NASCET criteria. A dose lowering technique was utilized adhering to the principles of ALARA. CT DOSE: 1124.49 mGy.cm (accession [id number]), 602.96 mGy.cm (accession [id number]) FINDINGS: CT BRAIN: There is no acute intracranial hemorrhage, midline shift, hydrocephalus, intracranial mass, territorial ischemia or abnormal extra-axial collections. No abnormal intra-axial or extra-axial enhancement. Involutional changes with chronic microvascular ischemic disease. Mastoid air cells and middle ear cavities are clear. No calvarial fracture. Chronic severe mucoperiosteal thickening of the frontal, ethmoid and axillary sinuses. Prior bilateral lens repair. CT ANGIOGRAM OF THE HEAD AND NECK: Three-vessel morphology of the thoracic aortic arch. Patency of the innominate and image subclavian arteries. The common and internal carotid arteries are patent. Atherosclerosis of the carotid bulbs without significant stenosis. Additional calcified plaque of the cavernous, clinoid and supraclinoid segments. The bilateral anterior and middle cerebral arteries are also patent. The verte bral and basilar arteries are patent. Mild to moderate multifocal luminal narrowing of the posterior cerebral arteries. There is high-grade stenosis of the P2 segment right posterior cerebral artery. There is no aneurysm, additional high-grade stenosis, or proximal branch occlusion identified. Dural sinuses appear patent. Pulmonary emphysema. Intralobular septal thickening may represent a component of pulmonary edema. Postoperative and degenerative changes of the cervical spine. Left subclavian pacer. IMPRESSION: 1. No acute intracranial abnormality. 2. Multifocal stenoses of the posterior cerebral arteries, high-grade on the right. 3. Otherwise unremarkable CTA of the head and neck. 4. Pulmonary emphysema. 5. Severe chronic paranasal sinus disease. ACT 112: Negative or not required by law. The above report was generated using voice recognition software. It may contain grammatical, syntax or spelling errors. Electronically signed by: Talha Caballero M.D. 08/23/2023 9:50 AM Medications Administered Home Medications Medication Instructions Recorded Confirmed Last Taken montelukast 10 mg tablet 10 mg PO PM 04/08/19 08/23/23 08/21/23 ferrous sulfate 325 mg (65 mg 325 mg PO QAM 06/03/20 08/23/23 08/22/23 iron) tablet atorvastatin 20 mg tablet 20 mg PO QAM 11/26/21 08/23/23 08/22/23 cholecalciferol (vitamin D3) 50 100 mcg PO QAM 11/26/21 08/23/23 08/22/23 mcg (2,000 unit) capsule (Vitamin D3) aspirin 81 mg tablet,delayed 81 mg PO HS 01/04/22 08/23/23 08/21/23 release levalbuterol tartrate 45 1 puff inhalation Q4 PRN Shortness 08/07/22 08/23/23 Unknown mcg/actuation aerosol inhaler Of Breath (Xopenex HFA) sertraline 100 mg tablet 150 mg PO QAM 08/07/22 08/23/23 08/22/23 sotalol 80 mg tablet 40 mg PO AMPM 08/07/22 08/23/23 08/22/23 cyanocobalamin (vitamin B-12) 100 100 mcg PO QAM 11/07/22 08/23/23 08/22/23 mcg tablet (Vitamin B-12) folic acid 1 mg tablet 1 mg PO QAM 11/07/22 08/23/23 08/22/23 tiotropium 2.5 mcg-olodaterol 2.5 2 puff inhalation QAM 11/07/22 08/23/23 08/22/23 mcg/actuation mist for inhalation (Stiolto Respimat) torsemide 10 mg tablet 10 mg PO QAM 11/07/22 08/23/23 08/22/23 ipratropium bromide 21 mcg (0.03 2 spray intranasal DAILY PRN 12/06/22 08/23/23 08/14/23 %) nasal spray rhinorrhea pantoprazole 40 mg tablet,delayed 40 mg PO BID #60 tabs 12/09/22 08/23/23 08/22/23 release allopurinol 300 mg tablet 300 mg PO HS 08/14/23 08/23/23 08/21/23 clopidogrel 75 mg tablet 75 mg PO PM 08/14/23 08/23/23 08/21/23 lorazepam 1 mg tablet 1 mg PO HS PRN sleep/anxiety 08/14/23 08/23/23 Unknown doxycycline hyclate 100 mg tablet 100 mg PO BID 10 days #20 tabs 08/15/23 08/23/23 08/22/23 levothyroxine 125 mcg capsule 125 mcg PO QAM 08/22/23 08/23/23 08/22/23 Active Medications Generic Name Dose Route Start Last Admin Trade Name Freq PRN Reason Stop Dose Admin Atorvastatin Calcium 20 mg 08/23/23 09:00 08/23/23 10:11 Atorvastatin 20 Mg Tab PO 09/22/23 08:59 Not Given QAM JULIO CESAR Cyanocobalamin 100 mcg 08/23/23 09:00 08/23/23 10:11 Cyanocobalamin (B-12) 100 Mcg Tablet PO 09/22/23 08:59 Not Given QAM JULIO CESAR Doxycycline Hyclate 100 mg 08/23/23 09:00 08/23/23 10:11 Doxycycline Hyclate 100 Mg Cap PO 08/25/23 23:59 Not Given BID JULIO CESAR Ferrous Sulfate 325 mg 08/23/23 09:00 08/23/23 10:11 Ferrous Sulfate 325 Mg Tab PO 09/22/23 08:59 Not Given QAM JULIO CESAR Folic Acid 1 mg 08/23/23 09:00 08/23/23 10:11 Folic Acid 1 Mg Tab PO 09/22/23 08:59 Not Given QAM JULIO CESAR Sodium Chloride 1,000 mls @ 80 mls/hr 08/22/23 19:54 08/23/23 10:14 Nss IV 08/23/23 20:53 0 mls/hr .[id number] JULIO CESAR Infusion Levothyroxine Sodium 125 mcg 08/23/23 06:30 08/23/23 05:59 Levothyroxine Sodium 125 Mcg Tablet PO 09/22/23 06:29 125 mcg DAILYBB JULIO CESAR Administration Sertraline HCl 150 mg 08/23/23 09:00 08/23/23 10:11 Sertraline Hcl 50 Mg Tablet PO 09/22/23 08:59 Not Given QAM JULIO CESAR Sotalol HCl 40 mg 08/23/23 09:00 08/23/23 10:12 Sotalol Hcl 80 Mg Tab PO 09/22/23 08:59 Not Given BID JULIO CESAR Umeclidinium/Vilanterol 1 puffs 08/23/23 09:00 08/23/23 10:12 Umeclidinium/Vilanterol 62.5/25mcg 7 Puffs/Inhaler INH 09/22/23 08:59 Not Given DAILY JULIO CESAR Vitamin D 4,000 units 08/23/23 09:00 08/23/23 10:11 Cholecalciferol 1,000 Units 25 Mcg Tab PO 09/22/23 08:59 Not Given QAM JULIO CESAR
--- NOTE | 2023-08-23 13:41 | Cardiology Consultation ---
Date of Consultation August 23, 2023 Assessment & Plan (1) Generalized weakness: (2) Anemia: (3) Presence of Watchman left atrial appendage closure device: (4) S/P mitral valve clip implantation: (5) Acute renal insufficiency: Plan Extremely complex 83-year-old female admitted with generalized weakness fatigue possible acute neurologic complaints but in association with marked anemia possible GI bleed. Renal function has declined slightly Pacemaker function appropriate the AV sequential pacing no atrial arrhythmia Recently underwent watchman insertion to avoid anticoagulation issue. Remains on dual antiplatelet therapy for planned 45-day course Recommendations: Check blood culture Will reduce sotalol to 40 mg daily given renal insufficiency. May ultimately need to discontinue this medication but previously discussed. No evidence of QT prolongation or rhythm concerns. Poorly tolerant of atrial fibrillation in past Cardiology will follow echo to be reviewed History of Present Illness Reason for Consultation: Weakness, falls Chronic antiarrhythmic therapy Requesting Physician: Ashley Wilkinson MD Attending Physician: Ashley Wilkinson MD History of Present Illness Patient is an 83-year-old female with complex cardiac history which includes 1. Chronic diastolic CHF secondary to valvular insufficiency Moderate to severe MR and severe TR, status post MitraClip XT W and mitral clip XT, 03/06/2023 Echo Jul 2023 - Mild MR with mitral clip; 2. S/P Watchman device implantation on 07/31/23 at [facility] - discharged on ASA and Plavix 3.Severe pulmonary hypertension, multifactorial including valvular heart disease also following with Pulmonary 3.History of sick sinus syndrome with recurrent syncope, status post LINQ, now status post dual chamber permanent pacemaker 07/2022 4.Paroxysmal atrial fibrillation, on sotalol. 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 Recent hospitalization with possible TIA symptoms. Readmitted this morning with marked malaise falls and weakness. Findings consistent with acute anemia possible bleed transient neurologic complaints this morning. Chest x-ray with mild vascular congestion though unch anged from prior no signs or symptoms of acute heart failure per patient. No chest pain. Prior breathlessness improved since MitraClip performed. Remains in sinus by pacer and EKG interrogation On chronic sotalol therapy due to poorly tolerated atrial fibrillation. Concerns raised regarding the use of sotalol given acute renal insufficiency. Son notes at least 2 mechanical falls in the last 2 weeks. No syncope just becomes weak with activity No overt fevers. Feels chronically chilled Allergies Allergy/AdvReac Type Severity Reaction Status Date / Time Sulfa (Sulfonamide Allergy Severe Severe Verified 08/22/23 19:31 Antibiotics) rxn: rash and hives celecoxib Allergy Intermediate Rash/Hives/ Verified 08/22/23 19:31 Itching. cephalexin Allergy Intermediate Rash/Hives/ Verified 08/22/23 19:31 Itching. furosemide Allergy Intermediate Rash/Hives/ Verified 08/22/23 19:31 Itching. gabapentin Allergy Intermediate Rash/Hives/ Verified 08/22/23 19:31 Itching. pregabalin Allergy Intermediate Rash/Hives/ Verified 08/22/23 19:31 Itching. meclizine Allergy Unknown Unknown Verified 08/22/23 19:31 methylprednisolone Allergy Unknown Rash/Hives/ Verified 08/22/23 19:31 Itching. Penicillins Allergy Unknown Unknown. Verified 08/22/23 19:31 prednisone Allergy Unknown Rash/Hives/ Verified 08/22/23 19:31 Itching. vancomycin Allergy Unknown Jodi Verified 08/22/23 19:31 syn. . nickel Allergy Unknown Verified 08/22/23 19:31 dexamethasone AdvReac Intermediate Steroid Verified 08/22/23 19:31 psychosis. Home Medications Medication Instructions Recorded Confirmed Type montelukast 10 mg tablet 10 mg PO PM 04/08/19 08/23/23 History ferrous sulfate 325 mg (65 mg 325 mg PO QAM 06/03/20 08/23/23 History iron) tablet atorvastatin 20 mg tablet 20 mg PO QAM 11/26/21 08/23/23 History cholecalciferol (vitamin D3) 50 100 mcg PO QAM 11/26/21 08/23/23 History mcg (2,000 unit) capsule (Vitamin D3) aspirin 81 mg tablet,delayed 81 mg PO HS 01/04/22 08/23/23 History release levalbuterol tartrate 45 1 puff inhalation Q4 PRN Shortness 08/07/22 08/23/23 History mcg/actuation aerosol inhaler Of Breath (Xopenex HFA) sertraline 100 mg tablet 150 mg PO QAM 08/07/22 08/23/23 History sotalol 80 mg tablet 40 mg PO AMPM 08/07/22 08/23/23 History cyanocobalamin (vitamin B-12) 100 100 mcg PO QAM 11/07/22 08/23/23 History mcg tablet (Vitamin B-12) folic acid 1 mg tablet 1 mg PO QAM 11/07/22 08/23/23 History tiotropium 2.5 mcg-olodaterol 2.5 2 puff inhalation QAM 11/07/22 08/23/23 History mcg/actuation mist for inhalation (Stiolto Respimat) torsemide 10 mg tablet 10 mg PO QAM 11/07/22 08/23/23 History ipratropium bromide 21 mcg (0.03 2 spray intranasal DAILY PRN 12/06/22 08/23/23 History %) nasal spray rhinorrhea pantoprazole 40 mg tablet,delayed 40 mg PO BID #60 tabs 12/09/22 08/23/23 Rx release allopurinol 300 mg tablet 300 mg PO HS 08/14/23 08/23/23 History clopidogrel 75 mg tablet 75 mg PO PM 08/14/23 08/23/23 History lorazepam 1 mg tablet 1 mg PO HS PRN sleep/anxiety 08/14/23 08/23/23 History doxycycline hyclate 100 mg tablet 100 mg PO BID 10 days #20 tabs 08/15/23 08/23/23 Rx levothyroxine 125 mcg capsule 125 mcg PO QAM 08/22/23 08/23/23 History Patient History Medical History SSS (sick sinus syndrome) Chronic diastolic (congestive) heart failure TIA (transient ischemic attack) Nausea Leukocytosis Near syncope Hypotension Dehydration TIFFANY (acute kidney injury) Near syncope Elevated brain natriuretic peptide (BNP) level Pneumonia Atrial flutter Carotid artery aneurysm Prolonged QT interval Atrial fibrillation with RVR DM type 2 (diabetes mellitus, type 2) History of tobacco abuse Encounter for pre-operative examination Cholelithiasis Cholecystitis Chest pain at rest Pulmonary emphysema Osteoarthritis of right knee HTN (hypertension) RADHA (obstructive sleep apnea) Atrial fibrillation and flutter CKD (chronic kidney disease), stage III Meniere disease Depression Hypothyroidism Asthma, moderate persistent Surgical History History of hysterectomy History of cholecystectomy History of repair of left rotator cuff Hx of neck surgery H/O sinus surgery History of laminectomy Family History Father Diabetes Social History Smoking Status: Former smoker Tobacco Type: Cigarettes packs per day: 1.5; Cigarettes Per Day: 30; Second Hand Exposure: No; Do You Dip or Chew Tobacco: No; Hx Alcohol Use: No Hx Substance Use: No Preferred Language: Yakut Communication Ability: Effective Crystallizer Operator Required: No Beliefs That Will Affect Care: None marital status: Current Living Situation: Spouse Feels Safe at Home: Yes Assistive Devices: Hearing Aid - Right and Walker Physical Exam Constitutional: + frail appearing; no acute distress Eyes: PERRL, conjunctivae normal, anicteric sclerae Neck: trachea midline, no thyromegaly Respiratory: no respiratory distress and no labored breathing Cardiovascular: Rate/Rhythm: regular rhythm (AV paced) Heart Sounds: no murmur Vessels: no JVD Extremities: + edema (Trace) Gastrointestinal (Abdomen): normal bowel sounds, soft, nontender, no hepatosplenomegaly Musculoskeletal: no cyanosis or clubbing, extremities motor strength 5/5 Results & Data Vital Signs (Past 12 Hours) Vital Signs Temp Pulse Pulse Resp BP BP Pulse Ox 08/23/23 12:20 36.6 C 65 16 153/77 H 95 08/23/23 11:50 36.5 C 61 16 122/62 96 08/23/23 10:50 36.4 C L 60 16 127/66 96 08/23/23 10:35 36.5 C 60 21 108/68 97 08/23/23 10:20 36.5 C 86 20 128/81 96 08/23/23 10:05 36.5 C 65 21 128/59 L 97 08/23/23 09:49 61 18 131/66 98 08/23/23 09:49 36.4 C L 60 20 139/63 97 08/23/23 08:52 64 20 120/67 97 08/23/23 08:46 61 12/30/23 08:00 60 17 120/57 L 95 08/23/23 07:46 63 20 105/54 L 95 08/23/23 06:39 63 19 110/78 94 O2 Del Method 08/23/23 12:20 08/23/23 11:50 08/23/23 10:50 08/23/23 10:35 08/23/23 10:20 08/23/23 10:05 08/23/23 09:49 Room Air 08/23/23 09:49 08/23/23 08:52 Room Air 08/23/23 08:46 08/23/23 08:00 Room Air 08/23/23 07:46 Room Air 08/23/23 06:39 Room Air Laboratory Results Laboratory Results - last 24 hr 08/22/23 08/22/23 08/22/23 14:01 19:15 19:20 WBC 10.57 RBC 2.68 L Hgb 8.3 L Hct 24.8 L MCV 92.5 MCH 31.0 MCHC 33.5 RDW Std Deviation 54.9 H RDW Coeff of Francisco Javier 16.2 H Plt Count 220 MPV 11.2 Immature Gran % (Auto) 0.6 Neut % (Auto) 70.2 Lymph % (Auto) 15.1 [place] % (Auto) 9.2 Eos % (Auto) 4.4 Baso % (Auto) 0.5 Neut # (Auto) 7.43 H Lymph # (Auto) 1.60 [place] # (Auto) 0.97 H Eos # (Auto) 0.46 Baso # (Auto) 0.05 Immature Gran # (Auto) 0.06 Polychromasia Tear Drop Cells PT 11.1 INR 1.0 APTT 24 PTT Ratio 0.9 Sodium 136 Potassium 4.6 Chloride 105 Carbon Dioxide 22 Anion Gap 9 BUN 100 H Creatinine 2.15 H Est Cr Clr Drug Dosing Not Reportable Est GFR ( Amer) 23.9 Est GFR (Non-Af Amer) 20.6 BUN/Creatinine Ratio 46.5 H Glucose 106 H Calcium 9.2 Ionized Calcium Phosphorus 3.9 Magnesium 2.4 Iron TIBC Unsaturated IBC Transferrin % Sat Ferritin Total Bilirubin 0.4 AST 34 ALT 20 Alkaline Phosphatase 172 H Total Creatine Kinase 44 Troponin I High Sens 9.3 Total Protein 6.8 Albumin 3.8 Globulin 3.0 Albumin/Globulin Ratio 1.3 Vitamin B12 Folate TSH 9.531 H Free T4 1.11 Free T3 2.76 Urine Color Yellow Urine Appearance Clear Urine pH 5.0 Ur Specific [place] 1.012 Urine Protein Negative Urine Glucose (UA) Negative Urine Ketones Negative Urine Blood Negative Urine Nitrite Negative Urine Bilirubin Negative Urine Urobilinogen Negative Ur Leukocyte Esterase Negative SARS-CoV-2, RNA, NAAT NEGATIVE Blood Type Antibody Screen Crossmatch 08/23/23 08/23/23 08/23/23 04:27 08:03 09:09 WBC 8.96 9.57 RBC 2.10 L 2.22 L Hgb 6.5 L* 6.8 L* Hct 19.6 L* 21.3 L MCV 93.3 95.9 MCH 31.0 30.6 MCHC 33.2 31.9 L RDW Std Deviation 54.7 H 57.3 H RDW Coeff of Francisco Javier 16.0 H 16.3 H Plt Count 170 167 MPV 11.2 11.3 Immature Gran % (Auto) 0.6 0.5 Neut % (Auto) 64.6 75.4 Lymph % (Auto) 16.7 11.2 [place] % (Auto) 10.6 7.2 Eos % (Auto) 7.1 5.2 Baso % (Auto) 0.4 0.5 Neut # (Auto) 5.78 7.21 H Lymph # (Auto) 1.50 1.07 L [place] # (Auto) 0.95 H 0.69 H Eos # (Auto) 0.64 H 0.50 Baso # (Auto) 0.04 0.05 Immature Gran # (Auto) 0.05 0.05 Polychromasia 1+ 1+ Tear Drop Cells 1+ PT INR APTT PTT Ratio Sodium 136 138 Potassium 4.4 4.9 Chloride 109 H 110 H Carbon Dioxide 22 20 L Anion Gap 5 8 BUN 100 H 100 H Creatinine 1.87 H 1.85 H Est Cr Clr Drug Dosing 23.5 23.8 Est GFR ( Amer) 28.3 28.7 Est GFR (Non-Af Amer) 24.4 24.7 BUN/Creatinine Ratio 53.5 H 54.1 H Glucose 99 127 H Calcium 8.5 L 8.6 Ionized Calcium 1.23 Phosphorus 3.6 3.5 Magnesium 2.1 2.2 Iron 65 TIBC 220 L Unsaturated IBC 155 Transferrin % Sat 30 Ferritin 181.7 Total Bilirubin 0.3 AST 26 ALT 16 Alkaline Phosphatase 129 H Total Creatine Kinase Troponin I High Sens Total Protein 5.2 L D Albumin 3.0 L Globulin 2.2 L Albumin/Globulin Ratio 1.4 Vitamin B12 924 H Folate > 22.30 TSH Free T4 Free T3 Urine Color Urine Appearance Urine pH Ur Specific [place] Urine Protein Urine Glucose (UA) Urine Ketones Urine Blood Urine Nitrite Urine Bilirubin Urine Urobilinogen Ur Leukocyte Esterase SARS-CoV-2, RNA, NAAT Blood Type O Positive Antibody Screen NEGATIVE Crossmatch See Detail
--- NOTE | 2023-08-23 13:44 | Gastrointestinal Consultation ---
Date of Consultation August 23, 2023 Assessment & Plan (1) Generalized weakness: (2) Stroke-like symptoms: (3) Anemia: Currently no evidence of overt GI bleeding Recommend Pantoprazole 40 mg by mouth twice daily Continue current therapy and supportive care Consider outpatient EGD/Colonoscopy if anemia persists with [facility] GI team If overt GI bleeding occurs, will perform endoscopic workup while in the hospital. History of Present Illness Reason for Consultation: Anemia Attending Physician: Ashley Wilkinson MD History of Present Illness Inga Barakat is an 83 yo CF with an extensive PMHx who presented to the ER with stroke like symptoms and generalized weakness. She did have a Code stroke alert, and was seen by Tele-Neurology. On arrival to the ER, she was noted to be anemic with an H/H of 8.3/24.8. Repeat H/H from this AM showed a decline to 6.8/21.3. She does have a history of chronic kidney disease, as well as chronic anemia, and was recently started on Plavix following a Watchman procedure. The patient denies any overt GI bleeding, including hematemesis, melena, or hematochezia, and does not take any NSAID's. She further denies any GI symptoms including nausea, vomiting, dysphagia, odynophagia, GERD, constipation or diarrhea. Her last colonoscopy in [address] Jamil showed Diverticulosis, and a poor bowel prep. Her las EGD in [address] Barreto showed mild gastritis, but no other findings. She denies any further complaints. Allergies Allergy/AdvReac Type Severity Reaction Status Date / Time Sulfa (Sulfonamide Allergy Severe Severe Verified 08/22/23 19:31 Antibiotics) rxn: rash and hives celecoxib Allergy Intermediate Rash/Hives/ Verified 08/22/23 19:31 Itching. cephalexin Allergy Intermediate Rash/Hives/ Verified 08/22/23 19:31 Itching. furosemide Allergy Intermediate Rash/Hives/ Verified 08/22/23 19:31 Itching. gabapentin Allergy Intermediate Rash/Hives/ Verified 08/22/23 19:31 Itching. pregabalin Allergy Intermediate Rash/Hives/ Verified 08/22/23 19:31 Itching. meclizine Allergy Unknown Unknown Verified 08/22/23 19:31 methylprednisolone Allergy Unknown Rash/Hives/ Verified 08/22/23 19:31 Itching. Penicillins Allergy Unknown Unknown. Verified 08/22/23 19:31 prednisone Allergy Unknown Rash/Hives/ Verified 08/22/23 19:31 Itching. vancomycin Allergy Unknown Jodi Verified 08/22/23 19:31 syn. . nickel Allergy Unknown Verified 08/22/23 19:31 dexamethasone AdvReac Intermediate Steroid Verified 08/22/23 19:31 psychosis. Home Medications Medication Instructions Recorded Confirmed Type montelukast 10 mg tablet 10 mg PO PM 04/08/19 08/23/23 History ferrous sulfate 325 mg (65 mg 325 mg PO QAM 06/03/20 08/23/23 History iron) tablet atorvastatin 20 mg tablet 20 mg PO QAM 11/26/21 08/23/23 History cholecalciferol (vitamin D3) 50 100 mcg PO QAM 11/26/21 08/23/23 History mcg (2,000 unit) capsule (Vitamin D3) aspirin 81 mg tablet,delayed 81 mg PO HS 01/04/22 08/23/23 History release levalbuterol tartrate 45 1 puff inhalation Q4 PRN Shortness 08/07/22 08/23/23 History mcg/actuation aerosol inhaler Of Breath (Xopenex HFA) sertraline 100 mg tablet 150 mg PO QAM 08/07/22 08/23/23 History sotalol 80 mg tablet 40 mg PO AMPM 08/07/22 08/23/23 History cyanocobalamin (vitamin B-12) 100 100 mcg PO QAM 11/07/22 08/23/23 History mcg tablet (Vitamin B-12) folic acid 1 mg tablet 1 mg PO QAM 11/07/22 08/23/23 History tiotropium 2.5 mcg-olodaterol 2.5 2 puff inhalation QAM 11/07/22 08/23/23 History mcg/actuation mist for inhalation (Stiolto Respimat) torsemide 10 mg tablet 10 mg PO QAM 11/07/22 08/23/23 History ipratropium bromide 21 mcg (0.03 2 spray intranasal DAILY PRN 12/06/22 08/23/23 History %) nasal spray rhinorrhea pantoprazole 40 mg tablet,delayed 40 mg PO BID #60 tabs 12/09/22 08/23/23 Rx release allopurinol 300 mg tablet 300 mg PO HS 08/14/23 08/23/23 History clopidogrel 75 mg tablet 75 mg PO PM 08/14/23 08/23/23 History lorazepam 1 mg tablet 1 mg PO HS PRN sleep/anxiety 08/14/23 08/23/23 History doxycycline hyclate 100 mg tablet 100 mg PO BID 10 days #20 tabs 08/15/23 08/23/23 Rx levothyroxine 125 mcg capsule 125 mcg PO QAM 08/22/23 08/23/23 History Patient History Medical History SSS (sick sinus syndrome) Chronic diastolic (congestive) heart failure TIA (transient ischemic attack) Nausea Leukocytosis Near syncope Hypotension Dehydration TIFFANY (acute kidney injury) Near syncope Elevated brain natriuretic peptide (BNP) level Pneumonia Atrial flutter Carotid artery aneurysm Prolonged QT interval Atrial fibrillation with RVR DM type 2 (diabetes mellitus, type 2) History of tobacco abuse Encounter for pre-operative examination Cholelithiasis Cholecystitis Chest pain at rest Pulmonary emphysema Osteoarthritis of right knee HTN (hypertension) RADHA (obstructive sleep apnea) Atrial fibrillation and flutter CKD (chronic kidney disease), stage III Meniere disease Depression Hypothyroidism Asthma, moderate persistent Surgical History History of hysterectomy History of cholecystectomy History of repair of left rotator cuff Hx of neck surgery H/O sinus surgery History of laminectomy Family History Father Diabetes Social History Smoking Status: Former smoker Tobacco Type: Cigarettes packs per day: 1.5; Cigarettes Per Day: 30; Second Hand Exposure: No; Do You Dip or Chew Tobacco: No; Hx Alcohol Use: No Hx Substance Use: No Preferred Language: Citizen [place] Communication Ability: Effective Dinkey Operator Slag Required: No Beliefs That Will Affect Care: None marital status: Current Living Situation: Spouse Feels Safe at Home: Yes Assistive Devices: Hearing Aid - Right and Walker Review of Systems Review of Systems: All systems reviewed & are unremarkable except as noted in Subjective Physical Exam Constitutional: Chronic ill-appearing, No acute distress Respiratory: normal respiratory effort, lungs clear to auscultation Cardiovascular: RRR, no murmur, no edema Gastrointestinal (Abdomen): normal bowel sounds, soft, nontender, no hepatosplenomegaly Skin: + pallor Psychiatric: A+Ox3, euthymic affect Results & Data Vital Signs (Past 12 Hours) Vital Signs Temp Pulse Pulse Resp BP BP Pulse Ox 08/23/23 12:20 36.6 C 65 16 153/77 H 95 08/23/23 11:50 36.5 C 61 16 122/62 96 08/23/23 10:50 36.4 C L 60 16 127/66 96 08/23/23 10:35 36.5 C 60 21 108/68 97 08/23/23 10:20 36.5 C 86 20 128/81 96 08/23/23 10:05 36.5 C 65 21 128/59 L 97 08/23/23 09:49 61 18 131/66 98 08/23/23 09:49 36.4 C L 60 20 139/63 97 08/23/23 08:52 64 20 120/67 97 08/23/23 08:46 61 08/23/23 08:00 60 17 120/57 L 95 08/23/23 07:46 63 20 105/54 L 95 08/23/23 06:39 63 19 110/78 94 O2 Del Method 08/23/23 12:20 08/23/23 11:50 08/23/23 10:50 08/23/23 10:35 08/23/23 10:20 08/23/23 10:05 08/23/23 09:49 Room Air 08/23/23 09:49 08/23/23 08:52 Room Air 08/23/23 08:46 08/23/23 08:00 Room Air 08/23/23 07:46 Room Air 08/23/23 06:39 Room Air PG Care Time/CCT Total # of Minutes Spent Total Time Spent with Patient: Total time spent is greater than 50% in coordination of care (as documented) at patient's floor/unit and/or counseling patient: Coding Level of Care Code 06963 IN/OBS CONSULT LVL 4,60M Diagnoses Generalized weakness R53.1 Stroke-like symptoms R29.90 Anemia D64.9
[2023-08-23] MEDS: INSULIN ASPART PER UNIT CHARGE SC SCH ×3 (13:49→21:43)
[2023-08-23 17:12] LABS: Hemoglobin 8.2 g/dl (12.0-16.0)
--- NOTE | 2023-08-23 20:49 | Communication Note ---
Date of Service: August 23, [address] Ray, that pt was seen by [facility] when stroke alert was called who advised discontinuing the plavix indefinitely. He further advised to hold aspirin at this time but can resume once pt more stable. telestroke advised that her symptoms this morning (slurred speech, heavy tongue, headache, dizziness) were more liekly due to her hgb of 6.8 and less likely a stroke. Head CT imaging noting new (not seen/commented on in prior imaging) multifocal stenoses of the posterior cerebral arteries, high-grade on the right but no acute stroke. consider vascular/neurosurg consult
[2023-08-23] MEDS ORDERED: CLOPIDOGREL BISULFATE 75 MG TAB PO SCH (21:00)
[2023-08-23] MEDS ORDERED: ASPIRIN 81 MG ECTAB PO SCH (21:00)
[2023-08-23] MEDS ORDERED: PANTOprazole 40 MG in SYRINGE 0 ML IV SCH (21:00)
[2023-08-23] MEDS: PANTOprazole 40 MG TAB PO SCH (21:40)
[2023-08-23] MEDS: allopurinoL 300 MG TAB PO SCH (21:40)
[2023-08-23] MEDS: MONTELUKAST SODIUM 10 MG TABLET PO SCH (21:40)
[2023-08-24] MEDS: LEVOTHYROXINE SODIUM 125 MCG TABLET PO SCH (05:42)
[2023-08-24 06:25] LABS: Hematocrit (blood only) 23.4 % (37.0-47.0); Hemoglobin 7.6 g/dl (12.0-16.0); Mean Corpuscular Hemoglobin 30.3 pg (25.0-34.0); Mean Corpuscular Hgb Conc 32.5 g/dL (32.0-36.0); Mean Corpuscular Volume 93.2 fL (80.0-100.0); Mean Platelet Volume 10.6 fL (9.4-12.4); Platelet Count 159 K/uL (130-400); RDW Coefficient of Variation 16.7 % (11.5-14.5); RDW Standard Deviation 56.8 fL (36.4-46.3); Red Blood Count 2.51 M/uL (4.20-5.40); White Blood Count 9.14 K/ul (4.8-10.8)
[2023-08-24 06:53] LABS: BUN Creatinine Ratio 46.5 (10-20); Calcium 8.7 mg/dl (8.6-10.3); Chol HDL Ratio 2.4 (0-5); Creatinine Clr Calc Pharmacy 24.9 ml/min; Est GFR (African American) 31.3 ml/min; Potassium 4.5 mmol/L (3.5-5.1)
[2023-08-24] MEDS: ATORVASTATIN 20 MG TAB PO SCH (09:14)
[2023-08-24] MEDS: CHOLECALCIFEROL 1,000 UNITS 25 MCG TAB PO SCH (09:14)
[2023-08-24] MEDS: FERROUS SULFATE 325 MG TAB PO SCH (09:15)
[2023-08-24] MEDS: FOLIC ACID 1 MG TAB PO SCH (09:15)
[2023-08-24] MEDS: PANTOprazole 40 MG TAB PO SCH ×2 (09:15→21:30)
[2023-08-24] MEDS: CYANOCOBALAMIN (B-12) 100 MCG TABLET PO SCH (09:15)
[2023-08-24] MEDS: SERTRALINE HCL 50 MG TABLET PO SCH (09:15)
[2023-08-24] MEDS: SOTALOL HCL 80 MG TAB PO SCH (09:16)
[2023-08-24] MEDS: DOXYCYCLINE HYCLATE 100 MG CAP PO SCH ×2 (09:16→21:31)
[2023-08-24] MEDS: INSULIN ASPART PER UNIT CHARGE SC SCH ×4 (09:28→21:27)
[2023-08-24] MEDS: UMECLIDINIUM/VILANTEROL 62.5/25MCG 7 PUFFS/INHALER INH SCH (09:30)
--- NOTE | 2023-08-24 11:53 | Nephrology Progress Note ---
Date of Service August 24, 2023 Assessment & Plan (1) Acute renal insufficiency: Plan: Patient with acute kidney injury on CKD. Baseline creatinine of 1.5. Creatinine today of 1.7. Admission creatinine was 2.1. Etiology of worsening renal function likely prerenal azotemia in setting of GI bleed. Patient has also had multiple rounds of contrast recently and on admission. She is high risk for worsening renal function. Electrolytes are stable no signs of volume overload. Will monitor renal function with daily BMP. Avoid further contrast. (2) Anemia: Plan: Patient with anemia likely due to GI bleed. Her hemoglobin is 7.6 today. Patient is on aspirin and Plavix. GI evaluation reviewed and recommending conservative management. Continue to monitor and transfuse as needed. (3) CKD (chronic kidney disease): Plan: Patient with CKD stage III due to diabetic nephropathy baseline creatinine 1.5. Will continue to monitor closely. Admission and Anticipated Discharge Date Admission Date: August 22, 2023 Subjective Seen for acute kidney injury. She feels better today. No shortness of breath. She has mild bleeding from the gums. She is complaining of dry tongue Review of Systems 2 Review of Systems: All other systems were reviewed and negative except as noted in HPI Physical Exam 2 Physical Exam: General exam: Appears comfortable, no acute distress HEENT: Pupils are equal and reactive to light. Slight bleeding from the gums of the front teeth Neck: No JVD, neck is supple trachea is midline Respiratory system: Clear breath sounds bilaterally. Gastrointestinal: Abdomen is soft, non distended, non tender, bowel sounds are present CVS: Regular rate and rhythm. No murmurs, rubs or gallops Musculoskeletal: No joint or muscle tenderness Extremities: Non tender, no edema, peripheral pulses are present Neuro: Oriented, no tremors, no focal neurological deficits Skin: No rashes Results & Data Vital Signs (Past 12 Hours) Vital Signs Temp Pulse Pulse Resp BP Pulse Ox O2 Del Method 08/24/23 07:54 36.6 C 62 16 116/52 L 97 Room Air 08/24/23 04:00 36.6 C 68 18 125/69 96 Room Air 08/24/23 01:28 68 Laboratory Results 08/24/23 05:40 08/24/23 05:40 WBC 9.14 RBC 2.51 L MCV 93.2 MCH 30.3 MCHC 32.5 RDW Std Deviation 56.8 H RDW Coeff of Francisco Javier 16.7 H Plt Count 159 MPV 10.6 (3) CKD (chronic kidney disease) Chronic kidney disease stage: unspecified stage Qualified Code(s): N18.9 - Chronic kidney disease, unspecified
--- NOTE | 2023-08-24 12:10 | Cardiology Progress Note ---
Date of Service August 24, 2023 Assessment & Plan (1) Generalized weakness: (2) Anemia: (3) Presence of Watchman left atrial appendage closure device: (4) S/P mitral valve clip implantation: (5) Acute renal insufficiency: Plan Extremely complex 83-year-old female admitted with generalized weakness fatigue possible acute neurologic complaints but in association with marked anemia possible GI bleed. Renal function has declined slightly Pacemaker function appropriate the AV sequential pacing no atrial arrhythmia Recently underwent watchman insertion to avoid anticoagulation issue. Remains on dual antiplatelet therapy for planned 45-day course Recommendations: Check blood culture Will reduce sotalol to 40 mg daily given renal insufficiency. May ultimately need to discontinue this medication but previously discussed. No evidence of QT prolongation or rhythm concerns. Poorly tolerant of atrial fibrillation in past 08/24/2023 No acute complaints, still anemic Will continue current therapies with reduced dose of sotalol Repeat EKG in a.m. Given persistent anemia and determine source of blood loss will order haptoglobin and LDH. Question component of hemolysis given mitral valve clip Patient status post Watchman procedure would continue dual antiplatelet therapy Admission and Anticipated Discharge Date Admission Date: August 22, 2023 Subjective Patient seen and examined, chart, medications, telemetry reviewed. Still feels weak but no acute focal complaint. Remains anemic despite transfusion. No overt source of bleeding discerned No chest pain or shortness of breath. No fevers or chills. Echo pending No further neurologic complaints Physical Exam Constitutional: + frail appearing; no acute distress Eyes: PERRL, conjunctivae normal, anicteric sclerae Neck: trachea midline, no thyromegaly Respiratory: no respiratory distress and no labored breathing Cardiovascular: Rate/Rhythm: regular rhythm (AV paced) Heart Sounds: no murmur Vessels: no JVD Extremities: + edema (Trace) Gastrointestinal (Abdomen): normal bowel sounds, soft, nontender, no hepatosplenomegaly Musculoskeletal: no cyanosis or clubbing, extremities motor strength 5/5 Results & Data Vital Signs (Past 12 Hours) Vital Signs Temp Pulse Pulse Resp BP Pulse Ox O2 Del Method 08/24/23 07:54 36.6 C 62 16 116/52 L 97 Room Air 08/24/23 04:00 36.6 C 68 18 125/69 96 Room Air 08/24/23 01:28 68 Laboratory Results Laboratory Results - last 24 hr 1208/23/23 08/23/23 08:03 09:00 13:23 WBC RBC Hgb Hct MCV MCH MCHC RDW Std Deviation RDW Coeff of Francisco Javier Plt Count MPV Sodium Potassium Chloride Carbon Dioxide Anion Gap BUN Creatinine Est Cr Clr Drug Dosing Est GFR ( Amer) Est GFR (Non-Af Amer) BUN/Creatinine Ratio Glucose POC Glucose 129 H 123 H Calcium Triglycerides Cholesterol LDL Cholesterol, Calc VLDL Cholesterol, Calc HDL Cholesterol Cholesterol/HDL Ratio Crossmatch See Detail 08/23/23 08/23/23 08/24/23 16:54 18:55 05:40 WBC 9.14 RBC 2.51 L Hgb 8.2 L 7.6 L Hct 25.0 L 23.4 L MCV 93.2 MCH 30.3 MCHC 32.5 RDW Std Deviation 56.8 H RDW Coeff of Francisco Javier 16.7 H Plt Count 159 MPV 10.6 Sodium 139 Potassium 4.5 Chloride 112 H Carbon Dioxide 21 Anion Gap 6 BUN 80 H D Creatinine 1.72 H Est Cr Clr Drug Dosing 24.9 Est GFR ( Amer) 31.3 Est GFR (Non-Af Amer) 27.0 BUN/Creatinine Ratio 46.5 H Glucose 110 H POC Glucose 159 H Calcium 8.7 Triglycerides 79 Cholesterol 105 LDL Cholesterol, Calc 45 VLDL Cholesterol, Calc 16 HDL Cholesterol 44 Cholesterol/HDL Ratio 2.4 Crossmatch 08/24/23 08/24/23 08:24 12:02 WBC RBC Hgb Hct MCV MCH MCHC RDW Std Deviation RDW Coeff of Francisco Javier Plt Count MPV Sodium Potassium Chloride Carbon Dioxide Anion Gap BUN Creatinine Est Cr Clr Drug Dosing Est GFR ( Amer) Est GFR (Non-Af Amer) BUN/Creatinine Ratio Glucose POC Glucose 123 H 227 H Calcium Triglycerides Cholesterol LDL Cholesterol, Calc VLDL Cholesterol, Calc HDL Cholesterol Cholesterol/HDL Ratio Crossmatch
[2023-08-24] MEDS: ASPIRIN 81 MG ECTAB PO SCH (13:56)
[2023-08-24] MEDS: CLOPIDOGREL BISULFATE 75 MG TAB PO SCH (13:56)
--- NOTE | 2023-08-24 18:12 | Hospitalist Progress Note ---
Date of Service August 24, 2023 Assessment & Plan (1) Generalized weakness: (2) S/P mitral valve clip implantation: (3) Presence of Watchman left atrial appendage closure device: (4) CKD (chronic kidney disease): (5) Anemia: (6) Depression: (7) Hypothyroidism: (8) SSS (sick sinus syndrome): Plan 82-year-old female who has a significant past medical history of CAD, history of PAF, presence of Watchman device, chronic diastolic CHF, severe tricuspid regurg, pulm hypertension, history of mitral valve clip implantation, T2DM with CKD stage IIIb and retinopathy, secondary hyperparathyroidism, hypothyroidism, hyperlipidemia, RADHA, asthma, GERD, history of Mnire's disease, anemia, history of TIA, depression, history of endometrial cancer and recent admission for stroke workup, admitted once more with generalized weakness. 08/23-Stroke alert in AM, last known well of 8:50AM per nursing. Then noted slurred speech, slight facial droop, pt with headache, dizziness, heavy tongue and numbness Seen by telestroke neurologist from [facility] who recommended STOP aspirin and plavix. Advised to Stop Plavix indefinitely, continue aspirin once stable. Low suspicion for stroke, symptoms more likely from acute blood loss (Hgb 6.5) requiring transfusion. CT head and neck images reviewed by telestroke neurologist, which showed no acute stroke, recommended repeating MRI brain (pt had one recently on 08/15) if pt had persistent symptoms post-transfusion. Generalized Weakness Pt recently admitted and discharged on 08/15 after stroke work up Was seen by PT at that time who recommended home with family support. Was seen by her pcp today with frequent falls at home, 2 within the last week Per son, has been having progressive lower extremity weakness that causes her to slip and fall--retrospectively this appears to bee from anemia. Pt denies LOC Outpt labs done on 08/21 with noted Cr of 2.4, head CT with no acute changes, continued sinus opacification EKG with noted paced rhythm, Echo from 08/15 with LVH, dilated atrium, EF 60- 65%, mild to moderate pulm HTN Hgb chronically low at baseline of approximately 8.5, dropped to 6.5 AM 08/23. Ordered to be transfused 2 Units UA with no signs of infection COVID test negative Chest xray notes cardiomegaly with pulm vascular congestion, chest CT pending. Electrolytes grossly within normal limits PT/OT orders placed once more for further evaluation Anemia Hgb chronically decreased, normocytic at this time Baseline ~8.5, dropped to 6.5 AM of 08/23 transfused 2 units pRBCs-no active bleeding. Continue home iron, folic acid and b12 supplementation Acute on Chronic Kidney disease Started on gentle IV hydration, per son po liquid intake reasonable at home Nephrology consult for further recs given worsening and persistent Avoid nephrotoxic meds and contrast, home torsemide currently on hold Monitor with AM labs Chronic Sinusitis Noted on head imaging during last admission for stroke/TIA workup Noted once more on recent repeat head CT ordered by pcp Continue doxycycline, has about 3 more days remaining in 10 day course Due for outpt followup with ENT Pulmonary HTN Chest xray with noted pulmonary vascular congestion, cardiomegaly Echo with noted worsening pulm HTN Pt with no respiratory concerns, using oxygen qhs Consider pulm consult PAF 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 Rivera-requires DAPT x 45 days. This was restarted this am. Cardiac pacemaker 2/2 SSS not on anticoagulation due to severe GIB in past continue sotalol at current dosing per cardiology after concern that it might be CI with worsening kidney function Holding home torsemide as noted above Cardiology consult- appreciate further recs Hypothyroidism TSH elevated, t4 wnl Continue home levothyroxine T2DM diet controlled, last a1c 6.8 ISS RADHA O2 at HS HLD chronic,stable continue statin Diet: DMII DVT ppx: SCDs, no chemoprophy 2/2 hx of severe GIB in past DNR/DNI Violetta Dhillon DO [facility] Hospitalist Admission and Anticipated Discharge Date Admission Date: August 22, 2023 Subjective 83 yo admitted for leg weakness and falls reports ongoing feeling of total tongue swelling which is intermittent there are no signs of thrush on tongue and this doesn't interfere with her eating or drinking she reports that here left arm feels heavy, but she also has full function of this and is able to lift objects to her mouth she reports she has snot been ambulating in thee room because the walker is not good enough to use and she is waiting for her home walker. No other stroke symptoms present.. Physical Exam Physical Exam: CONSTITUTIONAL: WNWD, vitals as above, generally well-appearing, NAD EYES: EOMI bilaterally, PERRL, +horizontal nystagmus to the left with EOMI. normal conjunctivae, no scleral icterus ENT: external ear and nose normal, MMM, tongue is normal without swelling, no lip or cheek swelling. NECK: trachea midline RESPIRATORY: clear to auscultation bilaterally, no crackles, rales or wheezes, normal respiratory effort CARDIOVASCULAR: regular rate and rhythm, S1 and 2 heard without murmurs, gallops or rubs, no JVD, no peripheral edema, CHEST: inspection of chest was normal GASTROINTESTINAL: soft, nontender, ND, no guarding MUSCULOSKELETAL: strength 5/5 throughout, head is normocephalic and atraumatic, SKIN: warm and dry NEUROLOGIC: CN 2-12 grossly intact, no sensory deficit, normal cognition, normal speech, no tremor PSYCHIATRIC: alert cooperative and oriented to person, place and time. Euthymic mood, makes good eye contact, language grossly intact, recent and remote memory grossly intact. Results & Data Results & Data Vital Signs (Past 12 Hours) Vital Signs Temp Pulse Resp BP Pulse Ox O2 Del Method 08/24/23 15:03 36.7 C 64 16 114/66 98 Room Air 08/24/23 12:10 36.6 C 61 16 112/66 96 Room Air 08/24/23 07:54 36.6 C 62 16 116/52 L 97 Room Air Laboratory Results Short CBC 08/24/23 Range/Units 05:40 WBC 9.14 (4.8-10.8) K/ul Hgb 7.6 L (12.0-16.0) g/dl Hct 23.4 L (37.0-47.0) % Plt Count 159 (130-400) K/uL [facility] 08/24/23 05:40 Sodium 139 Potassium 4.5 Chloride 112 H Carbon Dioxide 21 BUN 80 H D Creatinine 1.72 H Glucose 110 H Calcium 8.7 Medications Administered Current Inpatient Medications Acetaminophen (Acetaminophen 500 Mg Tab) 1,000 mg PO Q8H PRN PRN Reason: Pain or Fever Stop: 09/22/23 04:16 Al Hydrox/Mg Hydrox/Simethicone (Aluminum/Magnesium Susp 30 Ml Udc) 15 ml PO Q6H PRN PRN Reason: Indigestion Stop: 09/22/23 04:16 Allopurinol (Allopurinol 300 Mg Tab) 300 mg PO HS [facility] Stop: 09/22/23 20:59 Last Admin: 08/23/23 21:40 Dose: 300 mg Aspirin (Aspirin 81 Mg Ectab) [facility] Stop: 09/23/23 12:14 Last Admin: 08/24/23 13:56 Dose: 81 mg Atorvastatin Calcium (Atorvastatin 20 Mg Tab) 20 [facility] Stop: 09/22/23 08:59 Last Admin: 08/24/23 09:14 Dose: 20 mg Clopidogrel Bisulfate (Clopidogrel Bisulfate 75 Mg Tab) [facility] Stop: 09/23/23 12:14 Last Admin: 08/24/23 13:56 Dose: 75 mg Cyanocobalamin (Cyanocobalamin (B-12) 100 Mcg Tablet) 100 mcg PO [facility] Stop: 09/22/23 08:59 Last Admin: 08/24/23 09:15 Dose: 100 mcg Dextrose (Dextrose 50% 50 Ml Syringe) 25 - 50 ml IV UD PRN; Protocol PRN Reason: Hypoglycemia Protocol Stop: 09/22/23 10:33 Doxycycline Hyclate (Doxycycline Hyclate 100 Mg Cap) 100 mg PO BID [facility] Stop: 08/25/23 23:59 Last Admin: 08/24/23 09:16 Dose: 100 mg Ferrous Sulfate (Ferrous Sulfate 325 Mg Tab) 325 mg PO [facility] Stop: 09/22/23 08:59 Last Admin: 08/24/23 09:15 Dose: 325 mg Folic Acid (Folic Acid 1 Mg Tab) 1 mg PO [facility] Stop: 09/22/23 08:59 Last Admin: 08/24/23 09:15 Dose: 1 mg Glucagon (Glucagon For Inj 1 Mg Vial) 1 mg SQ UD PRN; Protocol PRN Reason: Hypoglycemia Protocol Stop: 09/22/23 10:33 Glucose (Glucose 10 Tab/Tube) 4 - 8 tab PO UD PRN; Protocol PRN Reason: Hypoglycemia Treatment Stop: 09/22/23 10:33 Glucose (Glucose 40% Gel 15 Gm Tube) 15 - 30 gm PO UD PRN; Protocol PRN Reason: Hypoglycemia Protocol Stop: 09/22/23 10:33 Insulin Aspart (Insulin Aspart Per Unit Charge) 0 units SC [facility] Stop: 09/22/23 11:29 Last Admin: 08/24/23 13:48 Dose: 5 units Levalbuterol HCl (Levalbuterol Tartrate 15 Gm Hfa.Aer.Ad) 1 puffs INH Q4 PRN PRN Reason: Shortness Of Breath Stop: 09/22/23 03:17 Levothyroxine Sodium (Levothyroxine Sodium 125 Mcg Tablet) 125 mcg PO DAILYBB JULIO CESAR Stop: 09/22/23 06:29 Last Admin: 08/24/23 05:42 Dose: 125 mcg Lorazepam (Lorazepam 1 Mg Tab) 1 mg PO HS PRN PRN Reason: sleep/anxiety Stop: 09/22/23 03:17 Last Admin: 08/23/23 21:43 Dose: 1 mg Miscellaneous (Order Awaiting Action: Ipratropium [place] 21 Mcg (0.03 %) [place],Non-Aerosol) 1 each N/A QS [facility] Stop: 09/22/23 07:59 Last Admin: 08/24/23 09:18 Dose: Not Given Miscellaneous (Carbohydrates For Hypoglycemia ) 15 - 30 gm PO UD PRN PRN Reason: Hypoglycemia Protocol Stop: 09/22/23 10:33 Miscellaneous Information (Pharmacist Discharge Med Rec Consult) 1 each N/A UD PRN PRN Reason: Consult Stop: 09/22/23 09:15 Montelukast Sodium (Montelukast Sodium 10 Mg Tablet) 10 mg PO PM JULIO CESAR Stop: 09/22/23 20:59 Last Admin: 08/23/23 21:40 Dose: 10 mg Pantoprazole Sodium (Pantoprazole 40 Mg Tab) 40 mg PO BID JULIO CESAR Stop: 09/22/23 20:59 Last Admin: 08/24/23 09:15 Dose: 40 mg Polyethylene Glycol (Polyethylene (Miralax) 17 Gm Pack) 17 gm PO DAILY PRN PRN Reason: Constipation Stop: 09/22/23 04:16 Sertraline HCl (Sertraline Hcl 50 Mg Tablet) 150 mg PO QAM JULIO CESAR Stop: 09/22/23 08:59 Last Admin: 08/24/23 09:15 Dose: 150 mg Sotalol HCl (Sotalol Hcl 80 Mg Tab) 40 mg PO DAILY JULIO CESAR Stop: 09/23/23 08:59 Last Admin: 08/24/23 09:16 Dose: 40 mg Umeclidinium/Vilanterol (Umeclidinium/Vilanterol 62.5/25mcg 7 Puffs/Inhaler) 1 puffs INH DAILY JULIO CESAR Stop: 09/22/23 08:59 Last Admin: 08/24/23 09:30 Dose: 1 puffs Vitamin D (Cholecalciferol 1,000 Units 25 Mcg Tab) 4,000 units PO QAM JULIO CESAR Stop: 09/22/23 08:59 Last Admin: 08/24/23 09:14 Dose: 4,000 units (4) CKD (chronic kidney disease) Chronic kidney disease stage: unspecified stage Qualified Code(s): N18.9 - Chronic kidney disease, unspecified
[2023-08-24] MEDS: allopurinoL 300 MG TAB PO SCH (21:31)
[2023-08-24] MEDS: MONTELUKAST SODIUM 10 MG TABLET PO SCH (21:32)
[2023-08-25] MEDS: LEVOTHYROXINE SODIUM 125 MCG TABLET PO SCH (06:04)
[2023-08-25] MEDS: FERROUS SULFATE 325 MG TAB PO SCH (08:27)
[2023-08-25] MEDS: CYANOCOBALAMIN (B-12) 100 MCG TABLET PO SCH (08:27)
[2023-08-25] MEDS: ATORVASTATIN 20 MG TAB PO SCH (08:27)
[2023-08-25] MEDS: FOLIC ACID 1 MG TAB PO SCH (08:27)
[2023-08-25] MEDS: UMECLIDINIUM/VILANTEROL 62.5/25MCG 7 PUFFS/INHALER INH SCH (08:27)
[2023-08-25] MEDS: PANTOprazole 40 MG TAB PO SCH ×2 (08:27→20:16)
[2023-08-25] MEDS: CHOLECALCIFEROL 1,000 UNITS 25 MCG TAB PO SCH (08:28)
[2023-08-25] MEDS: DOXYCYCLINE HYCLATE 100 MG CAP PO SCH ×2 (08:28→20:16)
[2023-08-25] MEDS: CLOPIDOGREL BISULFATE 75 MG TAB PO SCH (08:28)
[2023-08-25] MEDS: SERTRALINE HCL 50 MG TABLET PO SCH (08:28)
[2023-08-25] MEDS: ASPIRIN 81 MG ECTAB PO SCH (08:29)
[2023-08-25] MEDS: SOTALOL HCL 80 MG TAB PO SCH (08:29)
[2023-08-25] MEDS: INSULIN ASPART PER UNIT CHARGE SC SCH ×4 (08:50→20:43)
[2023-08-25 09:43] LABS: BUN Creatinine Ratio 35.6 (10-20); Calcium 8.8 mg/dl (8.6-10.3); Creatinine Clr Calc Pharmacy 24.8 ml/min; Est GFR (African American) 30.9 ml/min; Est GFR (Non-African American) 26.6 ml/min; Potassium 4.3 mmol/L (3.5-5.1)
--- NOTE | 2023-08-25 10:43 | Nephrology Progress Note ---
Date of Service August 25, 2023 Assessment & Plan (1) Acute renal insufficiency: Plan: Patient with acute kidney injury on CKD. Baseline creatinine of 1.5. Creatinine today of 1.7. Admission creatinine was 2.1. Etiology of worsening renal function likely prerenal azotemia in setting of GI bleed. Patient has also had multiple rounds of contrast recently and on admission. Electrolytes are stable no signs of volume overload. Will monitor renal function with daily BMP. Avoid further contrast. From renal standpoint patient can be discharged if hemoglobin is stable. She will need nephrology follow-up outpatient (2) Anemia: Plan: Patient with anemia likely due to GI bleed. Her hemoglobin is 7.6 yesterday. Hemoglobin pending today. Patient is on aspirin and Plavix. GI evaluation reviewed and recommending conservative management. Continue to monitor and transfuse as needed. (3) CKD (chronic kidney disease): Plan: Patient with CKD stage III due to diabetic nephropathy baseline creatinine 1.5. Will continue to monitor closely. Admission and Anticipated Discharge Date Admission Date: August 22, 2023 Subjective Seen for acute kidney injury and GI bleed. She feels better today. No melena stools. No shortness of breath. She is making urine. creatinine stable. Review of Systems 2 Review of Systems: All other systems were reviewed and negative except as noted in HPI Physical Exam 2 Physical Exam: General exam: Appears comfortable, no acute distress HEENT: Pupils are equal and reactive to light. Slight bleeding from the gums of the front teeth Neck: No JVD, neck is supple trachea is midline Respiratory system: Clear breath sounds bilaterally. Gastrointestinal: Abdomen is soft, non distended, non tender, bowel sounds are present CVS: Regular rate and rhythm. No murmurs, rubs or gallops Musculoskeletal: No joint or muscle tenderness Extremities: Non tender, no edema, peripheral pulses are present Neuro: Oriented, no tremors, no focal neurological deficits Skin: No rashes Results & Data Vital Signs (Past 12 Hours) Vital Signs Temp Pulse Pulse Resp BP Pulse Ox O2 Del Method 08/25/23 08:06 83 08/25/23 07:54 36.4 C L 64 20 147/67 H 98 Room Air 08/25/23 02:30 36.4 C L 65 18 110/64 93 Room Air Laboratory Results 08/25/23 08:48 (3) CKD (chronic kidney disease) Chronic kidney disease stage: unspecified stage Qualified Code(s): N18.9 - Chronic kidney disease, unspecified
[2023-08-25 11:29] LABS: Hematocrit (blood only) 23.8 % (37.0-47.0); Hemoglobin 7.6 g/dl (12.0-16.0); Mean Corpuscular Hemoglobin 30.3 pg (25.0-34.0); Mean Corpuscular Hgb Conc 31.9 g/dL (32.0-36.0); Mean Corpuscular Volume 94.8 fL (80.0-100.0); Mean Platelet Volume 11.2 fL (9.4-12.4); Platelet Count 172 K/uL (130-400); RDW Coefficient of Variation 16.8 % (11.5-14.5); RDW Standard Deviation 57.8 fL (36.4-46.3); Red Blood Count 2.51 M/uL (4.20-5.40); White Blood Count 9.41 K/ul (4.8-10.8)
--- NOTE | 2023-08-25 12:00 | Cardiology Progress Note ---
Date of Service August 25, 2023 Assessment & Plan (1) Generalized weakness: (2) Anemia: (3) Presence of Watchman left atrial appendage closure device: (4) S/P mitral valve clip implantation: (5) Acute renal insufficiency: Plan Extremely complex 83-year-old female admitted with generalized weakness fatigue possible acute neurologic complaints but in association with marked anemia possible GI bleed. Renal function has declined slightly Pacemaker function appropriate the AV sequential pacing no atrial arrhythmia Recently underwent watchman insertion to avoid anticoagulation issue. Remains on dual antiplatelet therapy for planned 45-day course Recommendations: Check blood culture Will reduce sotalol to 40 mg daily given renal insufficiency. May ultimately need to discontinue this medication but previously discussed. No evidence of QT prolongation or rhythm concerns. Poorly tolerant of atrial fibrillation in past 08/24/2023 No acute complaints, still anemic Will continue current therapies with reduced dose of sotalol Repeat EKG in a.m. Given persistent anemia and determine source of blood loss will order haptoglobin and LDH. Question component of hemolysis given mitral valve clip Patient status post Watchman procedure would continue dual antiplatelet therapy 08/25/2023 No acute cardiac complaints. No arrhythmias on telemetry. May require additional transfusion given persistent anemia Would continue dual antiplatelet therapy Continue reduced dose of sotalol, renal function appears to stabilized Admission and Anticipated Discharge Date Admission Date: August 22, 2023 Subjective Patient seen and examined, chart, medications, telemetry reviewed. No cardiac complaints. Still weak but stronger than in past No overt bleed Hemoglobin however remains reduced No arrhythmias on telemetry with AV sequential pacing present Renal function stable Results & Data Vital Signs (Past 12 Hours) Vital Signs Temp Pulse Pulse Resp BP Pulse Ox O2 Del Method 08/25/23 11:55 36.4 C L 65 16 118/67 98 Room Air 08/25/23 08:06 83 08/25/23 07:54 36.4 C L 64 20 147/67 H 98 Room Air 08/25/23 02:30 36.4 C L 65 18 110/64 93 Room Air Laboratory Results Laboratory Results - last 24 hr 08/24/23 08/24/23 08/24/23 12:02 12:36 16:58 WBC RBC Hgb Hct MCV MCH MCHC RDW Std Deviation RDW Coeff of Francisco Javier Plt Count MPV Haptoglobin Pending Sodium Potassium Chloride Carbon Dioxide Anion Gap BUN Creatinine Est Cr Clr Drug Dosing Est GFR ( Amer) Est GFR (Non-Af Amer) BUN/Creatinine Ratio Glucose POC Glucose 227 H 110 H Calcium Lactate Dehydrogenase 182 08/24/23 08/25/23 08/25/23 20:41 08:13 08:48 WBC RBC Hgb Hct MCV MCH MCHC RDW Std Deviation RDW Coeff of Francisco Javier Plt Count MPV Haptoglobin Sodium 138 Potassium 4.3 Chloride 111 H Carbon Dioxide 21 Anion Gap 6 BUN 62 H Creatinine 1.74 H Est Cr Clr Drug Dosing 24.8 Est GFR ( Amer) 30.9 Est GFR (Non-Af Amer) 26.6 BUN/Creatinine Ratio 35.6 H Glucose 145 H POC Glucose 149 H 120 H Calcium 8.8 Lactate Dehydrogenase 08/25/23 08:56 WBC 9.41 RBC 2.51 L Hgb 7.6 L Hct 23.8 L MCV 94.8 MCH 30.3 MCHC 31.9 L RDW Std Deviation 57.8 H RDW Coeff of Francisco Javier 16.8 H Plt Count 172 MPV 11.2 Haptoglobin Sodium Potassium Chloride Carbon Dioxide Anion Gap BUN Creatinine Est Cr Clr Drug Dosing Est GFR ( Amer) Est GFR (Non-Af Amer) BUN/Creatinine Ratio Glucose POC Glucose Calcium Lactate Dehydrogenase (2) Anemia Iron deficiency anemia type: chronic blood loss
--- NOTE | 2023-08-25 14:41 | Electrocardiogram Report ---
Test Reason : Blood Pressure : / mmHG Vent. Rate : 062 BPM Atrial Rate : 062 BPM P-R Int : 132 ms QRS Dur : 120 ms QT Int : 496 ms P-R-T Axes : 053 136 013 degrees QTc Int : 503 ms Poor data quality, interpretation may be adversely affected AV dual-paced rhythm Abnormal ECG When compared with ECG of 22-AUG-2023 13:53, No significant change was found Confirmed by Nilay Russ ([id number]) on 08/25/2023 2:41:21 PM Referred By: Florentin Calvo Confirmed By:Nilay Russ
--- NOTE | 2023-08-25 14:48 | Hospitalist Progress Note ---
Date of Service August 25, 2023 Assessment & Plan (1) Generalized weakness: (2) S/P mitral valve clip implantation: (3) Presence of Watchman left atrial appendage closure device: (4) CKD (chronic kidney disease): (5) Anemia: (6) Depression: (7) Hypothyroidism: (8) SSS (sick sinus syndrome): Plan 82-year-old female who has a significant past medical history of CAD, history of PAF, presence of Watchman device, chronic diastolic CHF, severe tricuspid regurg, pulm hypertension, history of mitral valve clip implantation, T2DM with CKD stage IIIb and retinopathy, secondary hyperparathyroidism, hypothyroidism, hyperlipidemia, RADHA, asthma, GERD, history of Mnire's disease, anemia, history of TIA, depression, history of endometrial cancer and recent admission for stroke workup, admitted once more with generalized weakness. 08/23-Stroke alert in AM, last known well of 8:50AM per nursing. Then noted slurred speech, slight facial droop, pt with headache, dizziness, heavy tongue and numbness Seen by telestroke neurologist from [facility] who recommended STOP aspirin and plavix. Advised to Stop Plavix indefinitely, continue aspirin once stable. Low suspicion for stroke, symptoms more likely from acute blood loss (Hgb 6.5) requiring transfusion. CT head and neck images reviewed by telestroke neurologist, which showed no acute stroke, recommended repeating MRI brain (pt had one recently on 08/15) if pt had persistent symptoms post-transfusion. Generalized Weakness Pt recently admitted and discharged on 08/15 after stroke work up Was seen by PT at that time who recommended home with family support. Was seen by her pcp today with frequent falls at home, 2 within the last week Per son, has been having progressive lower extremity weakness that causes her to slip and fall--retrospectively this appears to be from anemia. Pt denies LOC Outpt labs done on 08/21 with noted Cr of 2.4, head CT with no acute changes, continued sinus opacification EKG with noted paced rhythm, Echo from 08/15 with LVH, dilated atrium, EF 60- 65%, mild to moderate pulm HTN Hgb chronically low at baseline of approximately 8.5, dropped to 6.5 AM 08/23. Ordered to be transfused 2 Units UA with no signs of infection COVID test negative Chest xray notes cardiomegaly with pulm vascular congestion, chest CT confirms this-->restarting torsemide per home regimen. Electrolytes grossly within normal limits PT/OT orders placed once more for further evaluation-->rehab is recommended. Anemia Hgb chronically decreased, normocytic at this time Baseline ~8.5, dropped to 6.5 AM of 08/23 transfused 2 units pRBCs-no active bleeding. Rule out hemolysis given recent mitral clip placement a couple of months ago trend CBC in am Continue home iron, folic acid and b12 supplementation Acute on Chronic Kidney disease Etiology of worsening renal function likely prerenal azotemia in the setting of acute anemia Nephrology consult for further recs given worsening and persistent improved creatinine to 1.7 which is close to her baseline. Chronic Sinusitis Noted on head imaging during last admission for stroke/TIA workup Noted once more on recent repeat head CT ordered by pcp Continue doxycycline, has about 3 more days remaining in 10 day course Due for outpt followup with ENT Pulmonary HTN Chest xray with noted pulmonary vascular congestion, cardiomegaly Echo with noted worsening pulm HTN followup as outpatient. PAF 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 Rivera-requires DAPT x 45 days. This was restarted this am. Cardiac pacemaker 2/2 SSS not on anticoagulation due to severe GIB in past continue sotalol at reduced dosing per cardiology May ultimately need to discontinue this medication, however, she is poorly tolerant of atrial fibrillation in the past and there is no evidence of QT prolongation or rhythm concerns. Hypothyroidism TSH elevated, t4 wnl Continue home levothyroxine and repeat TFTs as outpatient when feeling better. T2DM diet controlled, last a1c 6.8 ISS RADHA O2 at HS HLD chronic,stable continue statin Diet: DMII DVT ppx: SCDs, no chemoprophy 2/2 hx of severe GIB in past DNR/DNI Dispo-to rehab Violetta Dhillon DO [facility] Hospitalist Admission and Anticipated Discharge Date Admission Date: August 22, 2023 Subjective 83 yo admitted for leg weakness and falls reports ongoing feeling of total tongue swelling which is intermittent there are no signs of thrush on tongue and this doesn't interfere with her eating or drinking--seems to be improving. she reports that here left arm feels heavy, but she also has full function of this and is able to lift objects to her mouth--> today she states that is gone and there is some pain on her chest wall on the left which is from her fall. she reports ambulating well today with her home walker. Physical Exam Physical Exam: CONSTITUTIONAL: WNWD, vitals as above, generally well-appearing, NAD EYES: normal conjunctivae, no scleral icterus ENT: external ear and nose normal, MMM, tongue is normal without swelling, no lip or cheek swelling. NECK: trachea midline RESPIRATORY: clear to auscultation bilaterally, no crackles, rales or wheezes, normal respiratory effort CARDIOVASCULAR: regular rate and rhythm, S1 and 2 heard without murmurs, gallops or rubs, no JVD, no peripheral edema, CHEST: inspection of chest was normal GASTROINTESTINAL: soft, nontender, ND, no guarding MUSCULOSKELETAL: strength 5/5 throughout, head is normocephalic and atraumatic, SKIN: warm and dry NEUROLOGIC: CN 2-12 grossly intact, no sensory deficit, normal cognition, normal speech, no tremor PSYCHIATRIC: alert cooperative and oriented to person, place and time. Euthymic mood, makes good eye contact, language grossly intact, recent and remote memory grossly intact. Results & Data Results & Data Vital Signs (Past 12 Hours) Vital Signs Temp Pulse Pulse Resp BP Pulse Ox O2 Del Method 08/25/23 11:55 36.4 C L 65 16 118/67 98 Room Air 08/25/23 08:06 83 08/25/23 07:54 36.4 C L 64 20 147/67 H 98 Room Air Laboratory Results Short CBC 08/25/23 Range/Units 08:56 WBC 9.41 (4.8-10.8) K/ul Hgb 7.6 L (12.0-16.0) g/dl Hct 23.8 L (37.0-47.0) % Plt Count 172 (130-400) K/uL BMP 08/25/23 08:48 Sodium 138 Potassium 4.3 Chloride 111 H Carbon Dioxide 21 BUN 62 H Creatinine 1.74 H Glucose 145 H Calcium 8.8 Medications Administered Current Inpatient Medications Acetaminophen (Acetaminophen 500 Mg Tab) 1,000 mg PO Q8H PRN PRN Reason: Pain or Fever Stop: 09/22/23 04:16 Al Hydrox/Mg Hydrox/Simethicone (Aluminum/Magnesium Susp 30 Ml Udc) 15 ml PO Q6H PRN PRN Reason: Indigestion Stop: 09/22/23 04:16 Allopurinol (Allopurinol 300 Mg Tab) 300 mg PO [facility] Stop: 09/22/23 20:59 Last Admin: 08/24/23 21:31 Dose: 300 mg Aspirin (Aspirin 81 Mg Ectab) 81 mg PO [facility] Stop: 09/23/23 12:14 Last Admin: 08/25/23 08:29 Dose: 81 mg Atorvastatin Calcium (Atorvastatin 20 Mg Tab) 20 mg PO [facility] Stop: 09/22/23 08:59 Last Admin: 08/25/23 08:27 Dose: 20 mg Clopidogrel Bisulfate (Clopidogrel Bisulfate 75 Mg Tab) 75 mg PO [facility] Stop: 09/23/23 12:14 Last Admin: 08/25/23 08:28 Dose: 75 mg Cyanocobalamin (Cyanocobalamin (B-12) 100 Mcg Tablet) 100 mcg PO [facility] Stop: 09/22/23 08:59 Last Admin: 08/25/23 08:27 Dose: 100 mcg Dextrose (Dextrose 50% 50 Ml Syringe) 25 - 50 ml IV UD PRN; Protocol PRN Reason: Hypoglycemia Protocol Stop: 09/22/23 10:33 Doxycycline Hyclate (Doxycycline Hyclate 100 Mg Cap) 100 mg PO BID [facility] Stop: 08/25/23 23:59 Last Admin: 08/25/23 08:28 Dose: 100 mg Ferrous Sulfate (Ferrous Sulfate 325 Mg Tab) 325 mg PO [facility] Stop: 09/22/23 08:59 Last Admin: 08/25/23 08:27 Dose: 325 mg Folic Acid (Folic Acid 1 Mg Tab) 1 mg PO [facility] Stop: 09/22/23 08:59 Last Admin: 08/25/23 08:27 Dose: 1 mg Glucagon (Glucagon For Inj 1 Mg Vial) 1 mg SQ UD PRN; Protocol PRN Reason: Hypoglycemia Protocol Stop: 09/22/23 10:33 Glucose (Glucose 10 Tab/Tube) 4 - 8 tab PO UD PRN; Protocol PRN Reason: Hypoglycemia Treatment Stop: 09/22/23 10:33 Glucose (Glucose 40% Gel 15 Gm Tube) 15 - 30 gm PO UD PRN; Protocol PRN Reason: Hypoglycemia Protocol Stop: 09/22/23 10:33 Insulin Aspart (Insulin Aspart Per Unit Charge) 0 units SC ACHS [facility] Stop: 09/22/23 11:29 Last Admin: 08/25/23 13:03 Dose: 3 units Levalbuterol HCl (Levalbuterol Tartrate 15 Gm Hfa.Aer.Ad) 1 puffs INH Q4 PRN PRN Reason: Shortness Of Breath Stop: 09/22/23 03:17 Levothyroxine Sodium (Levothyroxine Sodium 125 Mcg Tablet) 125 mcg PO DAILYBB [facility] Stop: 09/22/23 06:29 Last Admin: 08/25/23 06:04 Dose: 125 mcg Lorazepam (Lorazepam 1 Mg Tab) 1 mg PO HS PRN PRN Reason: sleep/anxiety Stop: 09/22/23 03:17 Last Admin: 08/23/23 21:43 Dose: 1 mg Miscellaneous (Order Awaiting Action: Ipratropium [place] 21 Mcg (0.03 %) [place],Non-Aerosol) 1 each N/A QS [facility] Stop: 09/22/23 07:59 Last Admin: 08/25/23 08:27 Dose: Not Given Miscellaneous (Carbohydrates For Hypoglycemia ) 15 - 30 gm PO UD PRN PRN Reason: Hypoglycemia Protocol Stop: 09/22/23 10:33 Miscellaneous Information (Pharmacist Discharge Med Rec Consult) 1 each N/A UD PRN PRN Reason: Consult Stop: 09/22/23 09:15 Montelukast Sodium (Montelukast Sodium 10 Mg Tablet) 10 mg PO PM [facility] Stop: 09/22/23 20:59 Last Admin: 08/24/23 21:32 Dose: 10 mg Pantoprazole Sodium (Pantoprazole 40 Mg Tab) 40 mg PO BID [facility] Stop: 09/22/23 20:59 Last Admin: 08/25/23 08:27 Dose: 40 mg Polyethylene Glycol (Polyethylene (Miralax) 17 Gm Pack) 17 gm PO DAILY PRN PRN Reason: Constipation Stop: 09/22/23 04:16 Sertraline HCl (Sertraline Hcl 50 Mg Tablet) 150 mg PO QAM [facility] Stop: 09/22/23 08:59 Last Admin: 08/25/23 08:28 Dose: 150 mg Sotalol HCl (Sotalol Hcl 80 Mg Tab) 40 mg PO DAILY [facility] Stop: 09/23/23 08:59 Last Admin: 08/25/23 08:29 Dose: 40 mg Umeclidinium/Vilanterol (Umeclidinium/Vilanterol 62.5/25mcg 7 Puffs/Inhaler) 1 puffs INH DAILY [facility] Stop: 09/22/23 08:59 Last Admin: 08/25/23 08:27 Dose: 1 puffs Vitamin D (Cholecalciferol 1,000 Units 25 Mcg Tab) 4,000 units PO QAM [facility] Stop: 09/22/23 08:59 Last Admin: 08/25/23 08:28 Dose: 4,000 units (4) CKD (chronic kidney disease) Chronic kidney disease stage: unspecified stage Qualified Code(s): N18.9 - Chronic kidney disease, unspecified (5) Anemia Iron deficiency anemia type: chronic blood loss
[2023-08-25] MEDS: allopurinoL 300 MG TAB PO SCH (20:15)
[2023-08-25] MEDS: MONTELUKAST SODIUM 10 MG TABLET PO SCH (20:16)
[2023-08-26] MEDS: LEVOTHYROXINE SODIUM 125 MCG TABLET PO SCH (05:25)
--- NOTE | 2023-08-26 08:26 | Nephrology Progress Note ---
Date of Service August 26, 2023 Assessment & Plan (1) Acute renal insufficiency: Plan: plateau'd prerenal acute kidney injury on CKD. Baseline creatinine of 1.5. Creatinine yesterday of 1.7, 1.8 today. Admission creatinine was 2.1. Etiology of worsening renal function likely prerenal azotemia in setting of GI bleed. Patient has also had multiple rounds of contrast recently and on admission. Electrolytes are stable no signs of volume overload. -f/u today's bmp -Avoid further IV contrast. From renal standpoint patient can be discharged if hemoglobin is stable. PRELIMINARY NEPHRO D/C RECS -bmp, hgb at PCP f/u visit w/in one week of hospital d/c (2) Anemia: Plan: Patient with anemia likely due to GI bleed, on and off of AC. Her hemoglobin is 8.1 today, up from yesterday. Hemoglobin pending today. Patient is on aspirin and Plavix. GI evaluation reviewed and recommending conservative management w/ EGD/EUS later this month as OP, consideration of repeat colonoscopy. Continue to monitor and transfuse as needed. (3) CKD (chronic kidney disease): Plan: CKD stage IIIB w/ baseline creatinine 1.5. Will continue to monitor closely. Admission and Anticipated Discharge Date Admission Date: August 22, 2023 Subjective still w/ exertional dyspnea but improving; no edema; no orthopnea; no overt bleeding Review of Systems 2 Review of Systems: All systems reviewed & are unremarkable except as noted in Subjective Physical Exam 2 Constitutional: well developed and well nourished Eyes: EOM intact bilaterally ENMT: Ears: no external ear abnormality Nose: no external nose abnormality Mouth: + dry oral mucous membranes Neck: no nuchal rigidity Respiratory: normal respiratory effort Auscultation: + diminished lung sounds and + crackles (R base) Cardiovascular: Rate/Rhythm: regular rate and regular rhythm Heart Sounds: + murmur no edema Gastrointestinal (Abdomen): Inspection/Auscultation: normal bowel sounds P ercussion/Palpation: abdomen soft; abdomen nontender Musculoskeletal: Extremities: strength 5/5 throughout Skin: no rashes, warm and dry Neurologic: talley, fluent speech, no tremor Results & Data Vital Signs (Past 12 Hours) Vital Signs Temp Pulse Pulse Resp BP Pulse Ox O2 Del Method 08/26/23 07:52 36.7 C 57 L 20 146/70 H 93 Room Air 08/26/23 07:07 62 08/26/23 04:08 36.3 C L 63 18 122/71 95 Room Air 08/26/23 02:13 Room Air 08/25/23 23:37 36.2 C L 64 18 135/65 95 Room Air 08/25/23 23:00 Room Air 08/25/23 22:50 61 08/25/23 22:15 Room Air Laboratory Results 08/26/23 09:25 08/26/23 09:25 (3) CKD (chronic kidney disease) Chronic kidney disease stage: unspecified stage Qualified Code(s): N18.9 - Chronic kidney disease, unspecified
--- NOTE | 2023-08-26 08:38 | Gastroenterology Progress Note ---
Date of Service August 26, 2023 Assessment & Plan (1) Anemia: Plan: 83 year old female with history of T2DM, hypothyroidism, RADHA, asthma afib, pulmonary HTN, PVD, CHF, CKD, JALEEL, s/p cardiac pacer, s/p Watchman procedure admitted w/ stroke like symptoms - GI asked to evaluate for anemia w/o signs of GI bleeding. EGD/Colon and VCE for anemia in 2021 was unremarkable. She is scheduled for EGD/EUS in August. No current plan for inpatient endoscopy. Pending results of EGD, may consider repeat colonoscopy given history of poor prep. Trend H&H. Monitor and document GI output. May continue oral iron. PO PPI BID. Recall GI as needed. Thank you for allowing us to participate in the care of this patient. Please call with any acute changes, questions or concerns. Please see addendum below with additional recommendation from my supervising physician. Admission and Anticipated Discharge Date Admission Date: August 22, 2023 Supervising Physician Co-Signing Physician Notes I performed a history and physical examination of the patient today, including specifically on physical exam - soft abdomen. I have discussed the patient's management with the advanced practitioner. Please refer to the nurse practitioner's note for the documented findings and plan of care. Anemia with no overt GI bleeding. Plan for EGD/colonoscopy as OP. Recall GI if needed. Subjective Pt was seen and evaluated, chart reviewed. From GI standpoint feels okay. Notes chronic, dark stools, every other day. Is on PO iron. No BRBPR. No abd pain. Denies nausea, vomiting. Is scheduled for OP EGD/EUS in August. This was postponed due to her watchman procedure EGD 2022: - Normal esophagus. - Gastritis. Biopsied. - Normal examined duodenum. EGD 2022: The esophagus was normal. Multiple diminutive sessile fundic gland polyps with no stigmata of recent bleeding were found in the gastric fundus. The examined duodenum was normal. VCE 2021: Normal examination of the small bowel Gastric erosions noted Colon 2021: - Preparation of the colon was fair. - No fresh or altered blood. - The examined portion of the ileum was normal. - Diverticulosis in the sigmoid colon. - Stool in the entire examined colon. - The distal rectum and anal verge are normal on retroflexion view. - No specimens collected. Review of Systems Review of Systems: All systems reviewed & are unremarkable except as noted in HPI & below Physical Exam Constitutional: WD/WN, vitals as above Respiratory: normal respiratory effort, lungs clear to auscultation Cardiovascular: Rate/Rhythm: regular rate Gastrointestinal (Abdomen): normal bowel sounds, soft, nontender, no hepatosplenomegaly Skin: no rashes, warm and dry Results & Data Vital Signs (Past 12 Hours) Vital Signs Temp Pulse Pulse Resp BP Pulse Ox O2 Del Method 08/26/23 07:52 36.7 C 57 L 20 146/70 H 93 Room Air 08/26/23 07:07 62 08/26/23 04:08 36.3 C L 63 18 122/71 95 Room Air 08/26/23 02:13 Room Air 08/25/23 23:37 36.2 C L 64 18 135/65 95 Room Air 08/25/23 23:00 Room Air 08/25/23 22:50 61 08/25/23 22:15 Room Air Laboratory Results 08/26/23 08/25/23 08/25/23 Range/Units 07:58 20:26 17:10 WBC (4.8-10.8) K/ul RBC (4.20-5.40) M/uL Hgb (12.0-16.0) g/dl Hct (37.0-47.0) % MCV (80.0-100.0) fL MCH (25.0-34.0) pg MCHC (32.0-36.0) g/dL RDW Std Deviation (36.4-46.3) fL RDW Coeff of Francisco Javier (11.5-14.5) % Plt Count (130-400) K/uL MPV (9.4-12.4) fL Sodium (136-145) mmol/L Potassium (3.5-5.1) mmol/L Chloride (98-107) mmol/L Carbon Dioxide (21-32) mmol/L Anion Gap (3-11) BUN (6-23) mg/dl Creatinine (0.6-1.2) mg/dl Est Cr Clr Drug Dosing ml/min Est GFR ( Amer) ml/min Est GFR (Non-Af Amer) ml/min BUN/Creatinine Ratio (10-20) Glucose (70-99(Fasting)) mg/dl POC Glucose 114 H 145 H 114 H (70-99) mg/dl Calcium (8.6-10.3) mg/dl 08/25/23 08/25/23 08/25/23 Range/Units 12:04 08:56 08:48 WBC 9.41 (4.8-10.8) K/ul RBC 2.51 L (4.20-5.40) M/uL Hgb 7.6 L (12.0-16.0) g/dl Hct 23.8 L (37.0-47.0) % MCV 94.8 (80.0-100.0) fL MCH 30.3 (25.0-34.0) pg MCHC 31.9 L (32.0-36.0) g/dL RDW Std Deviation 57.8 H (36.4-46.3) fL RDW Coeff of Francisco Javier 16.8 H (11.5-14.5) % Plt Count 172 (130-400) K/uL MPV 11.2 (9.4-12.4) fL Sodium 138 (136-145) mmol/L Potassium 4.3 (3.5-5.1) mmol/L Chloride 111 H (98-107) mmol/L Carbon Dioxide 21 (21-32) mmol/L Anion Gap 6 (3-11) BUN 62 H (6-23) mg/dl Creatinine 1.74 H (0.6-1.2) mg/dl Est Cr Clr Drug Dosing 24.8 ml/min Est GFR ( Amer) 30.9 ml/min Est GFR (Non-Af Amer) 26.6 ml/min BUN/Creatinine Ratio 35.6 H (10-20) Glucose 145 H (70-99(Fasting)) mg/dl POC Glucose 125 H (70-99) mg/dl Calcium 8.8 (8.6-10.3) mg/dl (1) Anemia Iron deficiency anemia type: chronic blood loss
[2023-08-26] MEDS: UMECLIDINIUM/VILANTEROL 62.5/25MCG 7 PUFFS/INHALER INH SCH (08:45)
[2023-08-26] MEDS: SOTALOL HCL 80 MG TAB PO SCH (08:45)
[2023-08-26] MEDS: CHOLECALCIFEROL 1,000 UNITS 25 MCG TAB PO SCH (08:46)
[2023-08-26] MEDS: CYANOCOBALAMIN (B-12) 100 MCG TABLET PO SCH (08:46)
[2023-08-26] MEDS: ATORVASTATIN 20 MG TAB PO SCH (08:46)
[2023-08-26] MEDS: SERTRALINE HCL 50 MG TABLET PO SCH (08:46)
[2023-08-26] MEDS: CLOPIDOGREL BISULFATE 75 MG TAB PO SCH (08:46)
[2023-08-26] MEDS: FOLIC ACID 1 MG TAB PO SCH (08:46)
[2023-08-26] MEDS: ASPIRIN 81 MG ECTAB PO SCH (08:46)
[2023-08-26] MEDS: FERROUS SULFATE 325 MG TAB PO SCH (08:46)
[2023-08-26] MEDS: PANTOprazole 40 MG TAB PO SCH ×2 (08:47→20:55)
[2023-08-26] MEDS: INSULIN ASPART PER UNIT CHARGE SC SCH ×4 (08:47→20:55)
[2023-08-26] MEDS: TORSEMIDE 10 MG TAB PO SCH (09:45)
[2023-08-26 09:49] LABS: Hematocrit (blood only) 24.7 % (37.0-47.0); Hemoglobin 8.1 g/dl (12.0-16.0); Mean Corpuscular Hemoglobin 30.8 pg (25.0-34.0); Mean Corpuscular Hgb Conc 32.8 g/dL (32.0-36.0); Mean Corpuscular Volume 93.9 fL (80.0-100.0); Mean Platelet Volume 10.8 fL (9.4-12.4); Nucleated RBC # (auto) 0.03 K/uL (0.00-0.12); Nucleated RBC % (auto) 0.3 %; Platelet Count 198 K/uL (130-400); RDW Standard Deviation 58.4 fL (36.4-46.3); Red Blood Count 2.63 M/uL (4.20-5.40); Reticulocyte % 3.6 % (0.5-2.0); Reticulocytes # 0.09 10^6/uL (0.02-0.10)
[2023-08-26 10:04] LABS: Calcium 9.1 mg/dl (8.6-10.3); Creatinine Clr Calc Pharmacy 23.8 ml/min; Est GFR (African American) 29.6 ml/min; Est GFR (Non-African American) 25.6 ml/min; Potassium 4.5 mmol/L (3.5-5.1)
--- NOTE | 2023-08-26 12:33 | Hospitalist Progress Note ---
Date of Service August 26, 2023 Assessment & Plan (1) Generalized weakness: (2) S/P mitral valve clip implantation: (3) Presence of Watchman left atrial appendage closure device: (4) CKD (chronic kidney disease): (5) Anemia: (6) Depression: (7) Hypothyroidism: (8) SSS (sick sinus syndrome): Plan 82-year-old female who has a significant past medical history of CAD, history of PAF, presence of Watchman device, chronic diastolic CHF, severe tricuspid regurg, pulm hypertension, history of mitral valve clip implantation, T2DM with CKD stage IIIb and retinopathy, secondary hyperparathyroidism, hypothyroidism, hyperlipidemia, RADHA, asthma, GERD, history of Mnire's disease, anemia, history of TIA, depression, history of endometrial cancer and recent admission for stroke workup, admitted once more with generalized weakness. 08/23-Stroke alert in AM, last known well of 8:50AM per nursing. Then noted slurred speech, slight facial droop, pt with headache, dizziness, heavy tongue and numbness Seen by telestroke neurologist from [facility] who recommended STOP aspirin and plavix. Advised to Stop Plavix indefinitely, continue aspirin once stable. Low suspicion for stroke, symptoms more likely from acute blood loss (Hgb 6.5) requiring transfusion. CT head and neck images reviewed by telestroke neurologist, which showed no acute stroke, recommended repeating MRI brain (pt had one recently on 08/15) if pt had persistent symptoms post-transfusion. Generalized Weakness Pt recently admitted and discharged on 08/15 after stroke work up Was seen by PT at that time who recommended home with family support. Was seen by her pcp today with frequent falls at home, 2 within the last week Per son, has been having progressive lower extremity weakness that causes her to slip and fall--retrospectively this appears to be from anemia. Pt denies LOC Outpt labs done on 08/21 with noted Cr of 2.4, head CT with no acute changes, continued sinus opacification EKG with noted paced rhythm, Echo from 08/15 with LVH, dilated atrium, EF 60- 65%, mild to moderate pulm HTN Hgb chronically low at baseline of approximately 8.5, dropped to 6.5 AM 08/23. Ordered to be transfused 2 Units UA with no signs of infection COVID test negative Chest xray notes cardiomegaly with pulm vascular congestion, chest CT confirms this-->restarting torsemide per home regimen. Electrolytes grossly within normal limits PT/OT orders placed once more for further evaluation-->rehab is recommended. Anemia Hgb chronically decreased, normocytic at this time Baseline ~8.5, dropped to 6.5 AM of 08/23 transfused 2 units pRBCs-no active bleeding. Rule out hemolysis given recent mitral clip placement a couple of months ago trend CBC in am Peripheral smear shows rare shistocytes and spherocytes, there are no dysplastic features and no circulating immature myeloid precursors or blasts seen. There are also occasional tear drop cells and where the anemia seen may be related to chronic disease, ruling out myelodysplastic syndrome is recommended. Some RBC destruction may be occurring from prosthetic heart clip. Would recommend following up with her sanitizer following this admission for further workup of these issues. Would recommend CBC every two weeks while on ASA/Plavix with preventive blood transfusions if needed to avoid hospitalization from symptomatic anemia again. I discussed this with the patient and her son by phone. Acute on Chronic Kidney disease Etiology of worsening renal function likely prerenal azotemia in the setting of acute anemia Nephrology consulted improved creatinine to 1.8 which is close to her baseline. Chronic Sinusitis Noted on head imaging during last admission for stroke/TIA workup Noted once more on recent repeat head CT ordered by pcp Recently completed course of doxycycline. Asymptomatic Due for outpt followup with ENT Pulmonary HTN Chest xray with noted pulmonary vascular congestion, cardiomegaly Echo with noted worsening pulm HTN followup as outpatient. PAF 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 Rivera-requires DAPT x 45 days. This was restarted this am. Cardiac pacemaker 2/2 SSS not on anticoagulation due to severe GIB in past continue sotalol at reduced dosing per cardiology May ultimately need to discontinue this medication, however, she is poorly tolerant of atrial fibrillation in the past and there is no evidence of QT prolongation or rhythm concerns. Hypothyroidism TSH elevated, t4 wnl Continue home levothyroxine and repeat TFTs as outpatient when feeling better. T2DM diet controlled, last a1c 6.8 ISS RADHA O2 at HS HLD chronic,stable continue statin Diet: DMII DVT ppx: SCDs, no chemoprophy 2/2 hx of severe GIB in past DNR/DNI Dispo-to rehab DO Cris Graff Hospitalist Admission and Anticipated Discharge Date Admission Date: August 22, 2023 Subjective 83 yo admitted for leg weakness and falls all initial symptoms are improved/resolved. she has a golf-ball sized area of ecchymosis under her left breast which is sore but manageable. She reports feeling stronger We discussed the process of [facility] rehab I also touched base with her son, Julianne, by phone this morning and updated him with all questions answered. We reviewed her elaborate anemia workup over the past year. Hb currently stable Physical Exam Physical Exam: CONSTITUTIONAL: WNWD, vitals as above, generally well-appearing, NAD EYES: normal conjunctivae, no scleral icterus ENT: external ear and nose normal, MMM NECK: trachea midline RESPIRATORY: clear to auscultation bilaterally, no crackles, rales or wheezes, normal respiratory effort CARDIOVASCULAR: regular rate and rhythm, S1 and 2 heard without murmurs, gallops or rubs, no JVD, no peripheral edema, CHEST: inspection of chest was normal GASTROINTESTINAL: soft, nontender, ND, no guarding MUSCULOSKELETAL: strength 5/5 throughout, head is normocephalic and atraumatic, SKIN: warm and dry NEUROLOGIC: CN 2-12 grossly intact, no sensory deficit, normal cognition, normal speech, no tremor PSYCHIATRIC: alert cooperative and oriented to person, place and time. Euthymic mood, makes good eye contact, language grossly intact, recent and remote memory grossly intact. Results & Data Results & Data Vital Signs (Past 12 Hours) Vital Signs Temp Pulse Pulse Resp BP Pulse Ox O2 Del Method 08/26/23 11:43 36.3 C L 62 20 123/73 98 Room Air 08/26/23 07:52 36.7 C 57 L 20 146/70 H 93 Room Air 08/26/23 07:07 62 08/26/23 04:08 36.3 C L 63 18 122/71 95 Room Air 08/26/23 02:13 Room Air Laboratory Results Short CBC 08/26/23 Range/Units 09:25 WBC 11.90 H (4.8-10.8) K/ul Hgb 8.1 L (12.0-16.0) g/dl Hct 24.7 L (37.0-47.0) % Plt Count 198 (130-400) K/uL BMP 08/26/23 09:25 Sodium 138 Potassium 4.5 Chloride 110 H Carbon Dioxide 19 L BUN 54 H Creatinine 1.80 H Glucose 201 H Calcium 9.1 Medications Administered Current Inpatient Medications Acetaminophen (Acetaminophen 500 Mg Tab) 1,000 mg PO Q8H PRN PRN Reason: Pain or Fever Stop: 09/22/23 04:16 Al Hydrox/Mg Hydrox/Simethicone (Aluminum/Magnesium Susp 30 Ml Udc) 15 ml PO Q6H PRN PRN Reason: Indigestion Stop: 09/22/23 04:16 Allopurinol (Allopurinol 300 Mg Tab) 300 mg PO [facility] Stop: 09/22/23 20:59 Last Admin: 08/25/23 20:15 Dose: 300 mg Aspirin (Aspirin 81 Mg Ectab) 81 mg PO [facility] Stop: 09/23/23 12:14 Last Admin: 08/26/23 08:46 Dose: 81 mg Atorvastatin Calcium (Atorvastatin 20 Mg Tab) 20 mg PO [facility] Stop: 09/22/23 08:59 Last Admin: 08/26/23 08:46 Dose: 20 mg Clopidogrel Bisulfate (Clopidogrel Bisulfate 75 Mg Tab) 75 mg PO [facility] Stop: 09/23/23 12:14 Last Admin: 08/26/23 08:46 Dose: 75 mg Cyanocobalamin (Cyanocobalamin (B-12) 100 Mcg Tablet) 100 mcg PO [facility] Stop: 09/22/23 08:59 Last Admin: 08/26/23 08:46 Dose: 100 mcg Dextrose (Dextrose 50% 50 Ml Syringe) 25 - 50 ml IV UD PRN; Protocol PRN Reason: Hypoglycemia Protocol Stop: 09/22/23 10:33 Ferrous Sulfate (Ferrous Sulfate 325 Mg Tab) 325 mg PO [facility] Stop: 09/22/23 08:59 Last Admin: 08/26/23 08:46 Dose: 325 mg Folic Acid (Folic Acid 1 Mg Tab) 1 mg PO [facility] Stop: 09/22/23 08:59 Last Admin: 08/26/23 08:46 Dose: 1 mg Glucagon (Glucagon For Inj 1 Mg Vial) 1 mg SQ UD PRN; Protocol PRN Reason: Hypoglycemia Protocol Stop: 09/22/23 10:33 Glucose (Glucose 10 Tab/Tube) 4 - 8 tab PO UD PRN; Protocol PRN Reason: Hypoglycemia Treatment Stop: 09/22/23 10:33 Glucose (Glucose 40% Gel 15 Gm Tube) 15 - 30 gm PO UD PRN; Protocol PRN Reason: Hypoglycemia Protocol Stop: 09/22/23 10:33 Insulin Aspart (Insulin Aspart Per Unit Charge) 0 units SC ACHS [facility] Stop: 09/22/23 11:29 Last Admin: 08/26/23 08:47 Dose: Not Given Levalbuterol HCl (Levalbuterol Tartrate 15 Gm Hfa.Aer.Ad) 1 puffs INH Q4 PRN PRN Reason: Shortness Of Breath Stop: 09/22/23 03:17 Levothyroxine Sodium (Levothyroxine Sodium 125 Mcg Tablet) 125 mcg PO DAILYBB [facility] Stop: 09/22/23 06:29 Last Admin: 08/26/23 05:25 Dose: 125 mcg Lorazepam (Lorazepam 1 Mg Tab) 1 mg PO HS PRN PRN Reason: sleep/anxiety Stop: 09/22/23 03:17 Last Admin: 08/23/23 21:43 Dose: 1 mg Miscellaneous (Order Awaiting Action: Ipratropium [place] 21 Mcg (0.03 %) [place],Non-Aerosol) 1 each N/A QS [facility] Stop: 09/22/23 07:59 Last Admin: 08/26/23 08:47 Dose: Not Given Miscellaneous (Carbohydrates For Hypoglycemia ) 15 - 30 gm PO UD PRN PRN Reason: Hypoglycemia Protocol Stop: 09/22/23 10:33 Miscellaneous Information (Pharmacist Discharge Med Rec Consult) 1 each N/A UD PRN PRN Reason: Consult Stop: 09/22/23 09:15 Montelukast Sodium (Montelukast Sodium 10 Mg Tablet) 10 mg PO PM [facility] Stop: 09/22/23 20:59 Last Admin: 08/25/23 20:16 Dose: 10 mg Pantoprazole Sodium (Pantoprazole 40 Mg Tab) 40 mg PO BID [facility] Stop: 09/22/23 20:59 Last Admin: 08/26/23 08:47 Dose: 40 mg Polyethylene Glycol (Polyethylene (Miralax) 17 Gm Pack) 17 gm PO DAILY PRN PRN Reason: Constipation Stop: 09/22/23 04:16 Sertraline HCl (Sertraline Hcl 50 Mg Tablet) 150 mg PO QAM [facility] Stop: 09/22/23 08:59 Last Admin: 08/26/23 08:46 Dose: 150 mg Sotalol HCl (Sotalol Hcl 80 Mg Tab) 40 mg PO DAILY [facility] Stop: 09/23/23 08:59 Last Admin: 08/26/23 08:45 Dose: 40 mg Torsemide (Torsemide 10 Mg Tab) 10 mg PO QAM [facility] Stop: 09/25/23 08:59 Last Admin: 08/26/23 09:45 Dose: 10 mg Umeclidinium/Vilanterol (Umeclidinium/Vilanterol 62.5/25mcg 7 Puffs/Inhaler) 1 puffs INH DAILY [facility] Stop: 09/22/23 08:59 Last Admin: 08/26/23 08:45 Dose: 1 puffs Vitamin D (Cholecalciferol 1,000 Units 25 Mcg Tab) 4,000 units PO QAM [facility] Stop: 09/22/23 08:59 Last Admin: 08/26/23 08:46 Dose: 4,000 units (4) CKD (chronic kidney disease) Chronic kidney disease stage: unspecified stage Qualified Code(s): N18.9 - Chronic kidney disease, unspecified (5) Anemia Iron deficiency anemia type: chronic blood loss
--- NOTE | 2023-08-26 17:25 | Cardiology Progress Note ---
Date of Service August 26, 2023 Assessment & Plan (1) Generalized weakness: (2) Anemia: (3) Presence of Watchman left atrial appendage closure device: (4) S/P mitral valve clip implantation: (5) Acute renal insufficiency: Plan Extremely complex 83-year-old female admitted with generalized weakness fatigue possible acute neurologic complaints but in association with marked anemia possible GI bleed. Renal function has declined slightly Pacemaker function appropriate the AV sequential pacing no atrial arrhythmia Recently underwent watchman insertion to avoid anticoagulation issue. Remains on dual antiplatelet therapy for planned 45-day course Recommendations: Check blood culture Will reduce sotalol to 40 mg daily given renal insufficiency. May ultimately need to discontinue this medication but previously discussed. No evidence of QT prolongation or rhythm concerns. Poorly tolerant of atrial fibrillation in past 08/24/2023 No acute complaints, still anemic Will continue current therapies with reduced dose of sotalol Repeat EKG in a.m. Given persistent anemia and determine source of blood loss will order haptoglobin and LDH. Question component of hemolysis given mitral valve clip Patient status post Watchman procedure would continue dual antiplatelet therapy 08/25/2023 No acute cardiac complaints. No arrhythmias on telemetry. May require additional transfusion given persistent anemia Would continue dual antiplatelet therapy Continue reduced dose of sotalol, renal function appears to stabilized 08/26/2023 Plan as above and prior. Has not required further transfusion Tolerating dual antiplatelet therapy and reduced dose of sotalol Recommend increasing activity Admission and Anticipated Discharge Date Admission Date: August 22, 2023 Subjective Patient seen and examined, chart, medications, telemetry reviewed Has been out of bed and moving around with slightly better stability Hemoglobin stable without transfusion. No overt bleeding. No arrhythmias on telemetry. Review of Systems Review of Systems: All systems reviewed & are unremarkable except as noted in Subjective Physical Exam Constitutional: WD/WN, vitals as above Eyes: PERRL, conjunctivae normal, anicteric sclerae Cardiovascular: Rate/Rhythm: regular rate and regular rhythm Heart Sounds: + murmur Vessels: no JVD Extremities: no edema Chest (Breasts): Chest: + pacemaker Results & Data Vital Signs (Past 12 Hours) Vital Signs Temp Pulse Pulse Resp BP Pulse Ox O2 Del Method 08/26/23 11:43 36.3 C L 62 20 123/73 98 Room Air 08/26/23 07:52 36.7 C 57 L 20 146/70 H 93 Room Air 08/26/23 07:07 62 Laboratory Results Laboratory Results - last 24 hr 08/25/23 08/26/23 08/26/23 20:26 07:58 09:25 WBC 11.90 H RBC 2.63 L Hgb 8.1 L Hct 24.7 L MCV 93.9 MCH 30.8 MCHC 32.8 RDW Std Deviation 58.4 H RDW Coeff of Francisco Javier 17.0 H Plt Count 198 MPV 10.8 Reticulocyte % (Auto) 3.6 H Reticulocyte # 0.09 Absolute Nucleated RBC 0.03 Nucleated RBC % (auto) 0.3 Peripher Smr Path Cons Sodium 138 Potassium 4.5 Chloride 110 H Carbon Dioxide 19 L Anion Gap 9 BUN 54 H Creatinine 1.80 H Est Cr Clr Drug Dosing 23.8 Est GFR ( Amer) 29.6 Est GFR (Non-Af Amer) 25.6 BUN/Creatinine Ratio 30.0 H Glucose 201 H POC Glucose 145 H 114 H Calcium 9.1 08/26/23 08/26/23 12:05 17:00 WBC RBC Hgb Hct MCV MCH MCHC RDW Std Deviation RDW Coeff of Francisco Javier Plt Count MPV Reticulocyte % (Auto) Reticulocyte # Absolute Nucleated RBC Nucleated RBC % (auto) Peripher Smr Path Cons Sodium Potassium Chloride Carbon Dioxide Anion Gap BUN Creatinine Est Cr Clr Drug Dosing Est GFR ( Amer) Est GFR (Non-Af Amer) BUN/Creatinine Ratio Glucose POC Glucose 207 H 94 Calcium (2) Anemia Iron deficiency anemia type: chronic blood loss
[2023-08-26] MEDS: allopurinoL 300 MG TAB PO SCH (20:55)
[2023-08-26] MEDS: MONTELUKAST SODIUM 10 MG TABLET PO SCH (20:55)
[2023-08-27] MEDS: LEVOTHYROXINE SODIUM 125 MCG TABLET PO SCH (05:35)
[2023-08-27] MEDS: UMECLIDINIUM/VILANTEROL 62.5/25MCG 7 PUFFS/INHALER INH SCH (08:19)
[2023-08-27] MEDS: CHOLECALCIFEROL 1,000 UNITS 25 MCG TAB PO SCH (08:19)
[2023-08-27] MEDS: SERTRALINE HCL 50 MG TABLET PO SCH (08:19)
[2023-08-27] MEDS: FERROUS SULFATE 325 MG TAB PO SCH (08:20)
[2023-08-27] MEDS: ASPIRIN 81 MG ECTAB PO SCH (08:20)
[2023-08-27] MEDS: CLOPIDOGREL BISULFATE 75 MG TAB PO SCH (08:21)
[2023-08-27] MEDS: CYANOCOBALAMIN (B-12) 100 MCG TABLET PO SCH (08:21)
[2023-08-27] MEDS: TORSEMIDE 10 MG TAB PO SCH (08:21)
[2023-08-27] MEDS: ATORVASTATIN 20 MG TAB PO SCH (08:21)
[2023-08-27] MEDS: SOTALOL HCL 80 MG TAB PO SCH (08:22)
[2023-08-27] MEDS: FOLIC ACID 1 MG TAB PO SCH (08:22)
[2023-08-27] MEDS: PANTOprazole 40 MG TAB PO SCH ×2 (08:22→20:27)
[2023-08-27] MEDS: INSULIN ASPART PER UNIT CHARGE SC SCH ×4 (08:26→20:29)
[2023-08-27 11:08] LABS: Hematocrit (blood only) 22.6 % (37.0-47.0); Hemoglobin 7.4 g/dl (12.0-16.0); Mean Corpuscular Hemoglobin 30.6 pg (25.0-34.0); Mean Corpuscular Hgb Conc 32.7 g/dL (32.0-36.0); Mean Corpuscular Volume 93.4 fL (80.0-100.0); Mean Platelet Volume 10.8 fL (9.4-12.4); Platelet Count 165 K/uL (130-400); RDW Coefficient of Variation 16.7 % (11.5-14.5); RDW Standard Deviation 56.1 fL (36.4-46.3); Red Blood Count 2.42 M/uL (4.20-5.40); White Blood Count 9.78 K/ul (4.8-10.8)
--- NOTE | 2023-08-27 11:25 | Nephrology Progress Note ---
Date of Service August 27, 2023 Assessment & Plan (1) Acute renal insufficiency: Plan: plateau'd prerenal acute kidney injury on CKD. Baseline creatinine of 1.5. Creatinine yesterday of 1.7, 1.8 today. Admission creatinine was 2.1; had been 2.5-2.6 as OP late July. Etiology of worsening renal function likely prerenal azotemia in setting of GI bleed. Patient has also had multiple rounds of contrast recently and on admission. Electrolytes are stable no signs of volume overload. -daily bmp while in house -Avoid further IV contrast. Will sign off NEPHRO D/C RECS -bmp, hgb at PCP f/u visit w/in one week of hospital d/c -recommend hospital d/c appt w/ me 2-4 wks after d/c w/ hgb, bmp, transferrin sat, ferritin to be ordered by renal nurse and drawn 3-5 days before appt -if d/c to rehab, recommend completing 5 day IV iron load there Care coordinated w/ Dr Natarajan (2) Anemia: Plan: Patient with anemia likely due to GI bleed, on and off of AC. Her hemoglobin has been running mid to high 7s past 4 days. Patient is on aspirin and Plavix. GI evaluation reviewed and recommending conservative management w/ EGD/EUS later this month as OP, consideration of repeat colonoscopy. Continue to monitor and transfuse as needed. Pt has 08/19 t sat 15% and ferritin 408 in EPIC; [facility] heme in 03/2023 attributed anemia to iron deficiency and CKD. -will start IV iron load 200 mg IV daily x 5 days; may consider SIENNA after d/c; (3) CKD (chronic kidney disease): Plan: CKD stage IIIB w/ recent baseline creatinine 1.5-1.7. Will continue to monitor closely; has been at/near baseline past few days. -f/u pending BMP from today > remains at baseline; mild hyperchloremic acidosis >> avoid NS; watch for diarrhea Admission and Anticipated Discharge Date Admission Date: August 22, 2023 Subjective no interval events clinically. no evidence of /obvious bleeding. still w/ mild exertional dyspnea. no edema. Review of Systems 2 Review of Systems: All systems reviewed & are unremarkable except as noted in Subjective Physical Exam 2 Constitutional: well developed and well nourished Eyes: EOM intact bilaterally ENMT: Ears: no external ear abnormality Nose: no external nose abnormality Mouth: + dry oral mucous membranes Neck: no nuchal rigidity Respiratory: normal respiratory effort Auscultation: + diminished lung sounds Cardiovascular: Rate/Rhythm: regular rate and regular rhythm Heart Sounds: + murmur Gastrointestinal (Abdomen): Inspection/Auscultation: normal bowel sounds P ercussion/Palpation: abdomen soft; abdomen nontender Musculoskeletal: Extremities: strength 5/5 throughout Skin: no rashes, warm and dry Results & Data Vital Signs (Past 12 Hours) Vital Signs Temp Pulse Resp BP Pulse Ox O2 Del Method 08/27/23 10:57 36.7 C 60 16 120/67 97 Room Air 08/27/23 07:40 Room Air 08/27/23 07:18 36.2 C L 64 18 124/69 96 Room Air Laboratory Results 08/27/23 10:12 08/27/23 10:12 (3) CKD (chronic kidney disease) Chronic kidney disease stage: unspecified stage Qualified Code(s): N18.9 - Chronic kidney disease, unspecified
[2023-08-27 11:43] LABS: BUN Creatinine Ratio 30.1 (10-20); Calcium 8.8 mg/dl (8.6-10.3); Creatinine Clr Calc Pharmacy 24.9 ml/min; Est GFR (African American) 31.1 ml/min; Est GFR (Non-African American) 26.8 ml/min; Magnesium 1.8 mg/dl (1.7-2.4); Phosphorus 3.2 mg/dl (2.5-4.9); Potassium 4.3 mmol/L (3.5-5.1)
--- NOTE | 2023-08-27 11:57 | Hospitalist Progress Note ---
Date of Service August 27, 2023 Assessment & Plan (1) Generalized weakness: (2) S/P mitral valve clip implantation: (3) Presence of Watchman left atrial appendage closure device: (4) CKD (chronic kidney disease): (5) Anemia: (6) Depression: (7) Hypothyroidism: (8) SSS (sick sinus syndrome): Plan 82 yo F w/ hx of CAD, history of PAF, presence of Watchman device, chronic diastolic CHF, severe tricuspid regurg, pulm hypertension, history of mitral valve clip implantation, T2DM with CKD stage IIIb and retinopathy, secondary hyperparathyroidism, hypothyroidism, hyperlipidemia, RADHA, asthma, GERD, history of Mnire's disease, anemia, history of TIA, depression, history of endometrial cancer and recent admission for stroke workup, admitted once more with generalized weakness. 08/23-Stroke alert in AM, last known well of 8:50AM per nursing. Then noted slurred speech, slight facial droop, pt with headache, dizziness, heavy tongue and numbness Seen by telestroke neurologist from [facility] who recommended STOP aspirin and plavix. Advised to Stop Plavix indefinitely, continue aspirin once stable. Low suspicion for stroke, symptoms more likely from acute blood loss (Hgb 6.5) requiring transfusion. CT head and neck images reviewed by telestroke neurologist, which showed no acute stroke, recommended repeating MRI brain (pt had one recently on 08/15) if pt had persistent symptoms post-transfusion. Generalized Weakness Pt recently admitted and discharged on 08/15 after stroke work up Was seen by PT at that time who recommended home with family support. Was seen by her pcp with frequent falls at home, 2 within the last week Per son, has been having progressive lower extremity weakness that causes her to slip and fall--retrospectively this appears to be from anemia. Pt denies LOC Outpt labs done on 08/21 with noted Cr of 2.4, head CT with no acute changes, continued sinus opacification EKG with noted paced rhythm, Echo from 08/15 with LVH, dilated atrium, EF 60- 65%, mild to moderate pulm HTN Hgb chronically low at baseline of approximately 8.5, dropped to 6.5 AM 08/23. Ordered to be transfused 2 Units UA with no signs of infection COVID test negative Chest xray notes cardiomegaly with pulm vascular congestion, chest CT confirms this-->restarted torsemide per home regimen. Electrolytes grossly within normal limits PT/OT orders placed once more for further evaluation-->rehab is recommended. Anemia Hgb chronically decreased, normocytic at this time -at home on iron, folic acid and b12 supplementation Baseline ~8.5, dropped to 6.5 AM of 08/23 transfused 2 units pRBCs-no active bleeding. Rule out hemolysis given recent mitral clip placement a couple of months ago trend CBC in am Peripheral smear shows rare shistocytes and spherocytes, there are no dysplastic features and no circulating immature myeloid precursors or blasts seen. There are also occasional tear drop cells and where the anemia seen may be related to chronic disease, ruling out myelodysplastic syndrome is recommended. Some RBC destruction may be occurring from prosthetic heart clip. Would recommend following up with her chief nurse following this admission for further workup of these issues. Would recommend CBC every two weeks while on ASA/Plavix with preventive blood transfusions if needed to avoid hospitalization from symptomatic anemia again. GI eval - as outpt- recommending conservative management w/ EGD/EUS later this month as OP, consideration of repeat colonoscopy. Start IV iron per nephrology - as per review - pt has hx of iron deficiency anemia. Pt has 08/19 t sat 15% and ferritin 408 in EPIC; [facility] heme in 03/2023 attributed anemia to iron deficiency and CKD. -will start IV iron load 200 mg IV daily x 5 days; may consider SIENNA after d/c Acute on Chronic Kidney disease Etiology of worsening renal function likely prerenal azotemia in the setting of acute anemia Nephrology consulted for further recs given worsening and persistent improved creatinine to 1.7 which is close to her baseline. Chronic Sinusitis Noted on head imaging during last admission for stroke/TIA workup Noted once more on recent repeat head CT ordered by pcp Continued doxycycline, and finished 10 day course Due for outpt followup with ENT Pulmonary HTN Chest xray with noted pulmonary vascular congestion, cardiomegaly Echo with noted worsening pulm HTN followup as outpatient. PAF 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 Rivera-requires DAPT x 45 days. This was restarted 08/24 Cardiac pacemaker 2/2 SSS not on anticoagulation due to severe GIB in past continue sotalol at reduced dosing per cardiology May ultimately need to discontinue this medication, however, she is poorly tolerant of atrial fibrillation in the past and there is no evidence of QT prolongation or rhythm concerns. Hypothyroidism TSH elevated, t4 wnl Continue home levothyroxine and repeat TFTs as outpatient when feeling better. T2DM diet controlled, last a1c 6.8 ISS RADHA O2 at HS HLD chronic,stable continue statin Diet: DMII DVT ppx: SCDs, no chemoprophy 2/2 hx of severe GIB in past DNR/DNI Dispo-to rehab Admission and Anticipated Discharge Date Admission Date: August 22, 2023 Subjective 83 yo admitted for leg weakness and falls, 2/2 anemia all initial symptoms are improved/resolved. Overall feeling better no chest pain, shortness of breath, no abd pain, n/v Discussed w/ Dr. Green (nephro) - plan to start IV iron. Also discussed w/ Dr. Chavarria (cardiology) - need for ASA + plavix. Need for outpt hematology follow up (pt follows w/ Dr. Hood). Pt's son Bright updated over the phone. Review of Systems Review of Systems: All systems reviewed & are unremarkable except as noted in Subjective Physical Exam Physical Exam: CONSTITUTIONAL: WNWD, F in NAD EYES: normal conjunctivae, no scleral icterus ENT: external ear and nose normal, MMM NECK: supple RESPIRATORY: clear to auscultation bilaterally, no crackles, rales or wheezes, normal respiratory effort CARDIOVASCULAR: regular rate and rhythm, S1 and 2 heard without murmurs CHEST: inspection of chest is normal GASTROINTESTINAL: soft, nontender, ND, no guarding MUSCULOSKELETAL: head is normocephalic and atraumatic, moves extremities SKIN: warm and dry NEURO/PSYCH: awake, alert, cooperative, answers simple questions appropriately, speech fluent, moves extremities Results & Data Results & Data Vital Signs (Past 12 Hours) Vital Signs Temp Pulse Resp BP Pulse Ox O2 Del Method 08/27/23 10:57 36.7 C 60 16 120/67 97 Room Air 08/27/23 07:40 Room Air 08/27/23 07:18 36.2 C L 64 18 124/69 96 Room Air Laboratory Results 08/27/23 08/27/23 08/27/23 Range/Units 11:37 10:12 07:43 WBC 9.78 (4.8-10.8) K/ul RBC 2.42 L (4.20-5.40) M/uL Hgb 7.4 L (12.0-16.0) g/dl Hct 22.6 L (37.0-47.0) % MCV 93.4 (80.0-100.0) fL MCH 30.6 (25.0-34.0) pg MCHC 32.7 (32.0-36.0) g/dL RDW Std Deviation 56.1 H (36.4-46.3) fL RDW Coeff of Francisco Javier 16.7 H (11.5-14.5) % Plt Count 165 (130-400) K/uL MPV 10.8 (9.4-12.4) fL Sodium 138 (136-145) mmol/L Potassium 4.3 (3.5-5.1) mmol/L Chloride 111 H (98-107) mmol/L Carbon Dioxide 19 L (21-32) mmol/L Anion Gap 8 (3-11) BUN 52 H (6-23) mg/dl Creatinine 1.73 H (0.6-1.2) mg/dl Est Cr Clr Drug Dosing 24.9 ml/min Est GFR ( Amer) 31.1 ml/min Est GFR (Non-Af Amer) 26.8 ml/min BUN/Creatinine Ratio 30.1 H (10-20) Glucose 157 H (70-99(Fasting)) mg/dl POC Glucose 118 H 127 H (70-99) mg/dl Calcium 8.8 (8.6-10.3) mg/dl Phosphorus 3.2 (2.5-4.9) mg/dl Magnesium 1.8 (1.7-2.4) mg/dl 08/26/23 08/26/23 08/26/23 Range/Units 20:34 17:00 12:05 WBC (4.8-10.8) K/ul RBC (4.20-5.40) M/uL Hgb (12.0-16.0) g/dl Hct (37.0-47.0) % MCV (80.0-100.0) fL MCH (25.0-34.0) pg MCHC (32.0-36.0) g/dL RDW Std Deviation (36.4-46.3) fL RDW Coeff of Francisco Javier (11.5-14.5) % Plt Count (130-400) K/uL MPV (9.4-12.4) fL Sodium (136-145) mmol/L Potassium (3.5-5.1) mmol/L Chloride (98-107) mmol/L Carbon Dioxide (21-32) mmol/L Anion Gap (3-11) BUN (6-23) mg/dl Creatinine (0.6-1.2) mg/dl Est Cr Clr Drug Dosing ml/min Est GFR ( Amer) ml/min Est GFR (Non-Af Amer) ml/min BUN/Creatinine Ratio (10-20) Glucose (70-99(Fasting)) mg/dl POC Glucose 173 H 94 207 H (70-99) mg/dl Calcium (8.6-10.3) mg/dl Phosphorus (2.5-4.9) mg/dl Magnesium (1.7-2.4) mg/dl Medications Administered Current Inpatient Medications Acetaminophen (Acetaminophen 500 Mg Tab) 1,000 mg PO Q8H PRN PRN Reason: Pain or Fever Stop: 09/22/23 04:16 Al Hydrox/Mg Hydrox/Simethicone (Aluminum/Magnesium Susp 30 Ml Udc) 15 ml PO Q6H PRN PRN Reason: Indigestion Stop: 09/22/23 04:16 Allopurinol (Allopurinol 300 Mg Tab) 300 mg PO [facility] Stop: 09/22/23 20:59 Last Admin: 08/26/23 20:55 Dose: 300 mg Aspirin (Aspirin 81 Mg Ectab) 81 mg PO [facility] Stop: 09/23/23 12:14 Last Admin: 08/27/23 08:20 Dose: 81 mg Atorvastatin Calcium (Atorvastatin 20 Mg Tab) 20 mg PO [facility] Stop: 09/22/23 08:59 Last Admin: 08/27/23 08:21 Dose: 20 mg Clopidogrel Bisulfate (Clopidogrel Bisulfate 75 Mg Tab) 75 mg PO [facility] Stop: 09/23/23 12:14 Last Admin: 08/27/23 08:21 Dose: 75 mg Cyanocobalamin (Cyanocobalamin (B-12) 100 Mcg Tablet) 100 mcg PO [facility] Stop: 09/22/23 08:59 Last Admin: 08/27/23 08:21 Dose: 100 mcg Dextrose (Dextrose 50% 50 Ml Syringe) 25 - 50 ml IV UD PRN; Protocol PRN Reason: Hypoglycemia Protocol Stop: 09/22/23 10:33 Ferrous Sulfate (Ferrous Sulfate 325 Mg Tab) 325 mg PO QAM [facility] Stop: 09/22/23 08:59 Last Admin: 08/27/23 08:20 Dose: 325 mg Folic Acid (Folic Acid 1 Mg Tab) 1 mg PO QAM JUL[facility] CESAR Stop: 09/22/23 08:59 Last Admin: 08/27/23 08:22 Dose: 1 mg Glucagon (Glucagon For Inj 1 Mg Vial) 1 mg SQ UD PRN; Protocol PRN Reason: Hypoglycemia Protocol Stop: 09/22/23 10:33 Glucose (Glucose 10 Tab/Tube) 4 - 8 tab PO UD PRN; Protocol PRN Reason: Hypoglycemia Treatment Stop: 09/22/23 10:33 Glucose (Glucose 40% Gel 15 Gm Tube) 15 - 30 gm PO UD PRN; Protocol PRN Reason: Hypoglycemia Protocol Stop: 09/22/23 10:33 Iron Sucrose 200 mg/ Sodium (Chloride) 110 mls @ 220 mls/hr IV DAILY [facility] Stop: 08/31/23 09:29 Insulin Aspart (Insulin Aspart Per Unit Charge) 0 units SC ACHS [facility] Stop: 09/22/23 11:29 Last Admin: 08/27/23 08:26 Dose: 3 units Levalbuterol HCl (Levalbuterol Tartrate 15 Gm Hfa.Aer.Ad) 1 puffs INH Q4 PRN PRN Reason: Shortness Of Breath Stop: 09/22/23 03:17 Levothyroxine Sodium (Levothyroxine Sodium 125 Mcg Tablet) 125 mcg PO DAILYBB [facility] Stop: 09/22/23 06:29 Last Admin: 08/27/23 05:35 Dose: 125 mcg Lorazepam (Lorazepam 1 Mg Tab) 1 mg PO HS PRN PRN Reason: sleep/anxiety Stop: 09/22/23 03:17 Last Admin: 08/23/23 21:43 Dose: 1 mg Miscellaneous (Order Awaiting Action: Ipratropium Slade 21 Mcg (0.03 %) Orange,Non-Aerosol) 1 each N/A QS [facility] Stop: 09/22/23 07:59 Last Admin: 08/27/23 08:20 Dose: Not Given Miscellaneous (Carbohydrates For Hypoglycemia ) 15 - 30 gm PO UD PRN PRN Reason: Hypoglycemia Protocol Stop: 09/22/23 10:33 Montelukast Sodium (Montelukast Sodium 10 Mg Tablet) 10 mg PO PM [facility] Stop: 09/22/23 20:59 Last Admin: 08/26/23 20:55 Dose: 10 mg Pantoprazole Sodium (Pantoprazole 40 Mg Tab) 40 mg PO BID [facility] Stop: 09/22/23 20:59 Last Admin: 08/27/23 08:22 Dose: 40 mg Polyethylene Glycol (Polyethylene (Miralax) 17 Gm Pack) 17 gm PO DAILY PRN PRN Reason: Constipation Stop: 09/22/23 04:16 Sertraline HCl (Sertraline Hcl 50 Mg Tablet) 150 mg PO QAM [facility] Stop: 09/22/23 08:59 Last Admin: 08/27/23 08:19 Dose: 150 mg Sotalol HCl (Sotalol Hcl 80 Mg Tab) 40 mg PO DAILY [facility] Stop: 09/23/23 08:59 Last Admin: 08/27/23 08:22 Dose: 40 mg Torsemide (Torsemide 10 Mg Tab) 10 mg PO QAM [facility] Stop: 09/25/23 08:59 Last Admin: 08/27/23 08:21 Dose: 10 mg Umeclidinium/Vilanterol (Umeclidinium/Vilanterol 62.5/25mcg 7 Puffs/Inhaler) 1 puffs INH DAILY [facility] Stop: 09/22/23 08:59 Last Admin: 08/27/23 08:19 Dose: 1 puffs Vitamin D (Cholecalciferol 1,000 Units 25 Mcg Tab) 4,000 units PO QAM [facility] Stop: 09/22/23 08:59 Last Admin: 08/27/23 08:19 Dose: 4,000 units (4) CKD (chronic kidney disease) Chronic kidney disease stage: unspecified stage Qualified Code(s): N18.9 - Chronic kidney disease, unspecified (5) Anemia Iron deficiency anemia type: chronic blood loss
[2023-08-27] MEDS: IRON SUCROSE 200 MG in 0.9 % SODIUM CHLORIDE 100 ML IV SCH (12:23)
--- NOTE | 2023-08-27 17:31 | Cardiology Progress Note ---
Date of Service August 27, 2023 Assessment & Plan (1) Generalized weakness: (2) Anemia: (3) Presence of Watchman left atrial appendage closure device: (4) S/P mitral valve clip implantation: (5) Acute renal insufficiency: Plan Extremely complex 83-year-old female admitted with generalized weakness fatigue possible acute neurologic complaints but in association with marked anemia possible GI bleed. Renal function has declined slightly Pacemaker function appropriate the AV sequential pacing no atrial arrhythmia Recently underwent watchman insertion to avoid anticoagulation issue. Remains on dual antiplatelet therapy for planned 45-day course Recommendations: Check blood culture Will reduce sotalol to 40 mg daily given renal insufficiency. May ultimately need to discontinue this medication but previously discussed. No evidence of QT prolongation or rhythm concerns. Poorly tolerant of atrial fibrillation in past 08/24/2023 No acute complaints, still anemic Will continue current therapies with reduced dose of sotalol Repeat EKG in a.m. Given persistent anemia and determine source of blood loss will order haptoglobin and LDH. Question component of hemolysis given mitral valve clip Patient status post Watchman procedure would continue dual antiplatelet therapy 08/25/2023 No acute cardiac complaints. No arrhythmias on telemetry. May require additional transfusion given persistent anemia Would continue dual antiplatelet therapy Continue reduced dose of sotalol, renal function appears to stabilized 08/26/2023 Plan as above and prior. Has not required further transfusion Tolerating dual antiplatelet therapy and reduced dose of sotalol Recommend increasing activity 08/27/2023 Stable from cardiac standpoint. Continue sotalol 40 mg p.o. daily Has plans for follow-up BRENDAN on dual antiplatelet therapy at 6 weeks post Watchm an procedure Low threshold for transfusion with further drop in hemoglobin. Agree iron therapy Admission and Anticipated Discharge Date Admission Date: August 22, 2023 Subjective Patient seen and examined, sitting out of bed in chair, receiving IV iron. No acute complaint No arrhythmias on telemetry Physical Exam Constitutional: WD/WN, vitals as above no acute distress Eyes: PERRL, conjunctivae normal, anicteric sclerae Neck: trachea midline, no thyromegaly Respiratory: no respiratory distress and no labored breathing Cardiovascular: Rate/Rhythm: regular rate and regular rhythm Heart Sounds: + murmur Vessels: no JVD Extremities: no edema Chest (Breasts): Chest: + pacemaker Gastrointestinal (Abdomen): normal bowel sounds, soft, nontender, no hepatosplenomegaly Musculoskeletal: no cyanosis or clubbing, extremities motor strength 5/5 Results & Data Vital Signs (Past 12 Hours) Vital Signs Temp Pulse Resp BP Pulse Ox O2 Del Method 08/27/23 14:47 36.1 C L 61 16 112/67 98 Room Air 08/27/23 10:57 36.7 C 60 16 120/67 97 Room Air 08/27/23 07:40 Room Air 08/27/23 07:18 36.2 C L 64 18 124/69 96 Room Air Laboratory Results Laboratory Results - last 24 hr 08/24/23 08/26/23 08/27/23 12:36 20:34 07:43 WBC RBC Hgb Hct MCV MCH MCHC RDW Std Deviation RDW Coeff of Francisco Javier Plt Count MPV Haptoglobin 121 Sodium Potassium Chloride Carbon Dioxide Anion Gap BUN Creatinine Est Cr Clr Drug Dosing Est GFR ( Amer) Est GFR (Non-Af Amer) BUN/Creatinine Ratio Glucose POC Glucose 173 H 127 H Calcium Phosphorus Magnesium 08/27/23 08/27/23 08/27/23 10:12 11:37 16:36 WBC 9.78 RBC 2.42 L Hgb 7.4 L Hct 22.6 L MCV 93.4 MCH 30.6 MCHC 32.7 RDW Std Deviation 56.1 H RDW Coeff of Francisco Javier 16.7 H Plt Count 165 MPV 10.8 Haptoglobin Sodium 138 Potassium 4.3 Chloride 111 H Carbon Dioxide 19 L Anion Gap 8 BUN 52 H Creatinine 1.73 H Est Cr Clr Drug Dosing 24.9 Est GFR ( Amer) 31.1 Est GFR (Non-Af Amer) 26.8 BUN/Creatinine Ratio 30.1 H Glucose 157 H POC Glucose 118 H 153 H Calcium 8.8 Phosphorus 3.2 Magnesium 1.8 (2) Anemia Iron deficiency anemia type: chronic blood loss
[2023-08-27] MEDS: MONTELUKAST SODIUM 10 MG TABLET PO SCH (20:28)
[2023-08-27] MEDS: allopurinoL 300 MG TAB PO SCH (20:28)
[2023-08-28] MEDS: LEVOTHYROXINE SODIUM 125 MCG TABLET PO SCH (05:30)
[2023-08-28] MEDS: SERTRALINE HCL 50 MG TABLET PO SCH (08:11)
[2023-08-28] MEDS: FERROUS SULFATE 325 MG TAB PO SCH (08:11)
[2023-08-28] MEDS: ASPIRIN 81 MG ECTAB PO SCH (08:12)
[2023-08-28] MEDS: CYANOCOBALAMIN (B-12) 100 MCG TABLET PO SCH (08:12)
[2023-08-28] MEDS: PANTOprazole 40 MG TAB PO SCH ×2 (08:13→22:03)
[2023-08-28] MEDS: CLOPIDOGREL BISULFATE 75 MG TAB PO SCH (08:13)
[2023-08-28] MEDS: FOLIC ACID 1 MG TAB PO SCH (08:13)
[2023-08-28] MEDS: ATORVASTATIN 20 MG TAB PO SCH (08:13)
[2023-08-28] MEDS: CHOLECALCIFEROL 1,000 UNITS 25 MCG TAB PO SCH (08:15)
[2023-08-28] MEDS: UMECLIDINIUM/VILANTEROL 62.5/25MCG 7 PUFFS/INHALER INH SCH (08:15)
[2023-08-28 08:20] LABS: Hematocrit (blood only) 23.6 % (37.0-47.0); Hemoglobin 7.5 g/dl (12.0-16.0)
[2023-08-28] MEDS: TORSEMIDE 10 MG TAB PO SCH (08:21)
[2023-08-28] MEDS: SOTALOL HCL 80 MG TAB PO SCH (08:21)
[2023-08-28] MEDS: IRON SUCROSE 200 MG in 0.9 % SODIUM CHLORIDE 100 ML IV SCH (08:28)
[2023-08-28] MEDS: INSULIN ASPART PER UNIT CHARGE SC SCH ×4 (08:32→21:24)
[2023-08-28 08:44] LABS: BUN Creatinine Ratio 27.7 (10-20); Calcium 8.5 mg/dl (8.6-10.3); Est GFR (African American) 28.1 ml/min; Est GFR (Non-African American) 24.3 ml/min; Potassium 4.6 mmol/L (3.5-5.1)
--- NOTE | 2023-08-28 17:56 | Hospitalist Progress Note ---
Date of Service August 28, 2023 Assessment & Plan (1) Generalized weakness: (2) S/P mitral valve clip implantation: (3) Presence of Watchman left atrial appendage closure device: (4) CKD (chronic kidney disease): (5) Anemia: (6) Depression: (7) Hypothyroidism: (8) SSS (sick sinus syndrome): Plan 82 yo F w/ hx of CAD, history of PAF, presence of Watchman device, chronic diastolic CHF, severe tricuspid regurg, pulm hypertension, history of mitral valve clip implantation, T2DM with CKD stage IIIb and retinopathy, secondary hyperparathyroidism, hypothyroidism, hyperlipidemia, RADHA, asthma, GERD, history of Mnire's disease, anemia, history of TIA, depression, history of endometrial cancer and recent admission for stroke workup, admitted once more with generalized weakness. 08/23-Stroke alert in AM, last known well of 8:50AM per nursing. Then noted slurred speech, slight facial droop, pt with headache, dizziness, heavy tongue and numbness Seen by telestroke neurologist from [facility] [place] who recommended STOP aspirin and plavix. Advised to Stop Plavix indefinitely, continue aspirin once stable. Low suspicion for stroke, symptoms more likely from acute blood loss (Hgb 6.5) requiring transfusion. CT head and neck images reviewed by telestroke neurologist, which showed no acute stroke, recommended repeating MRI brain (pt had one recently on 08/15) if pt had persistent symptoms post-transfusion. Generalized Weakness Pt recently admitted and discharged on 08/15 after stroke work up Was seen by PT at that time who recommended home with family support. Was seen by her pcp with frequent falls at home, 2 within the last week Per son, has been having progressive lower extremity weakness that causes her to slip and fall--retrospectively this appears to be from anemia. Pt denies LOC Outpt labs done on 08/21 with noted Cr of 2.4, head CT with no acute changes, continued sinus opacification EKG with noted paced rhythm, Echo from 08/15 with LVH, dilated atrium, EF 60- 65%, mild to moderate pulm HTN Hgb chronically low at baseline of approximately 8.5, dropped to 6.5 AM 08/23. Ordered to be transfused 2 Units UA with no signs of infection COVID test negative Chest xray notes cardiomegaly with pulm vascular congestion, chest CT confirms this-->restarted torsemide per home regimen. Electrolytes grossly within normal limits PT/OT orders placed once more for further evaluation-->rehab is recommended, awaiting [facility] auth Anemia Hgb chronically decreased, normocytic at this time -at home on iron, folic acid and b12 supplementation Baseline ~8.5, dropped to 6.5 AM of 08/23 transfused 2 units pRBCs-no active bleeding. Rule out hemolysis given recent mitral clip placement a couple of months ago trend CBC in am Peripheral smear shows rare shistocytes and spherocytes, there are no dysplastic features and no circulating immature myeloid precursors or blasts seen. There are also occasional tear drop cells and where the anemia seen may be related to chronic disease, ruling out myelodysplastic syndrome is recommended. Some RBC destruction may be occurring from prosthetic heart clip. 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 Would recommend CBC every two weeks while on ASA/Plavix with preventive blood transfusions if needed to avoid hospitalization from symptomatic anemia again. GI eval - as outpt- recommending conservative management w/ EGD/EUS later this month as OP, consideration of repeat colonoscopy. Start IV iron per nephrology - as per review - pt has hx of iron deficiency anemia. Pt has 08/19 t sat 15% and ferritin 408 in EPIC; [facility] heme in 03/2023 attributed anemia to iron deficiency and CKD. -will start IV iron load 200 mg IV daily x 5 days; may consider [facility] after d/c Acute on Chronic Kidney disease Etiology of worsening renal function likely prerenal azotemia in the setting of acute anemia Nephrology consulted for further recs given worsening and persistent improved creatinine to 1.7 which is close to her baseline. 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 Rivera-requires DAPT x 45 days. This was restarted 08/24 Cardiac pacemaker 2/2 SSS not on anticoagulation due to severe GIB in past Continue sotalol at reduced dosing per cardiology May ultimately need to discontinue this medication, however, she is poorly tolerant of atrial fibrillation in the past and there is no evidence of QT prolongation or rhythm concerns. Hypothyroidism TSH elevated, t4 wnl Continue home levothyroxine and repeat TFTs as outpatient when feeling better. T2DM diet controlled, last a1c 6.8 ISS RADHA O2 at HS HLD chronic,stable continue statin Diet: DMII DVT ppx: SCDs, no chemoprophy 2/2 hx of severe GIB in past DNR/DNI Dispo-to rehab Patient seen in collaboration with Dr. Natarajan. Please see addendum. Admission and Anticipated Discharge Date Admission Date: August 22, 2023 Supervising Physician Co-Signing Physician Notes Pt seen and examined by me, care coordinated w/ Ailin Stevenson PA-C, pls refer to her note above for further detail. Pt is currently laying in bed in NAD. Denies any chest pain, increased shortness of breath (however has some w/ exertion), abd. pain, n/v. Hgb stable and receiving IV iron as ordered and discussed w/ nephrology. Pt is awake, alert, able to answer simple questions appropriately. Lungs are CTAB, heart sounds rrr, abdomen soft and nontender. Monitor H&H. Awaiting placement at rehab. MD Rosa Isela Subjective Seen and examined in 375-1. Comfortable, no acute issues overnight. Awaiting discharge to facility. No F/C, lightheadedness, CP, SOB, N/V, abd pain, dysuria, diarrhea or constipation. Review of Systems Review of Systems: At least ten systems reviewed and negative except as noted in the HPI. Physical Exam Physical Exam: Gen: WD/WN, NAD, laying in bed comfortably, A&Ox3 HEENT: Normocephalic, atraumatic, conjunctivae moist, sclerae anicteric, mucous membranes moist Lung: Clear to Auscultation bilaterally, no wheezes/rales/rhonchi Heart: Regular rate, regular rhythm, no murmurs, rubs, or gallops Abdomen: Soft, NT, ND +BS x 4 Extremities: no edema Skin: Warm, no rash Results & Data Results & Data Vital Signs (Past 12 Hours) Vital Signs Temp Pulse Pulse Resp BP BP Pulse Ox 08/28/23 15:49 36.7 C 61 16 124/65 96 01/04/24 13:05 93 08/28/23 09:08 36.6 C 68 17 102/51 L 95 08/28/23 08:20 36.5 C 62 17 125/71 95 08/28/23 07:46 36.5 C 64 16 111/65 96 O2 Del Method 08/28/23 15:49 Room Air 08/28/23 13:05 08/28/23 09:08 Room Air 08/28/23 08:20 Room Air 08/28/23 07:46 Room Air Laboratory Results Short CBC 08/28/23 Range/Units 07:01 Hgb 7.5 L (12.0-16.0) g/dl Hct 23.6 L (37.0-47.0) % BMP 08/28/23 07:01 Sodium 139 Potassium 4.6 Chloride 111 H Carbon Dioxide 21 BUN 52 H Creatinine 1.88 H Glucose 96 Calcium 8.5 L Diagnostic Findings Chest X-Ray 08/22/23 12:56 XR chest 1V not portable HISTORY: 83 years-old Female Weakness acute weakness COMPARISON: 11/07/2022 TECHNIQUE: PA view of the chest FINDINGS: Cardiac silhouette is enlarged. There is a left subclavian pacer. Surgical clips project over the left heart border right upper quadrant. No pneumothorax, pleural effusion or airspace consolidation. Pulmonary vascular congestion. Fusion hardware noted within the cervical spine. Cholecystectomy. Left atrial exclusion device. IMPRESSION: Cardiomegaly with pulmonary vascular congestion. ACT 112: Negative or not required by law. The above report was generated using voice recognition software. It may contain grammatical, syntax or spelling errors. Electronically signed by: Talha Caballero M.D. 08/22/2023 1:[address] 08/23/23 08:00 CT chest diagnostic wo con CLINICAL HISTORY: 83 years-old Female with weakness, pulm vasc congestion, cardiomegaly. Acute weakness with cardiomegaly TECHNIQUE: Multiaxial CT images of the chest were performed without contrast. A dose lowering technique was utilized adhering to the principles of ALARA. COMPARISON: CTA neck of same day, chest CT 01/04/2022 FINDINGS: 9 mm hypodense left thyroid nodule. 11 mm subcarinal lymph node is likely benign. Trace pericardial effusion. Moderate cardiomegaly with moderate coronary artery calcifications. Left atrial exclusion device. Left subclavian pacer. Intralobular septal thickening. Mild pulmonary emphysema. Stable 3 mm groundglass right apical pulmonary nodule, image 36. Mild bibasilar ground glass densities. Bronchial wall thickening. Central airways are patent. No airspace consolidation typical for pneumonia. Cortical thinning of the kidneys with bilateral renal cysts. Cholecystectomy. Atrophy of the pancreas. Unremarkable soft tissues. No acute fracture. Partially imaged cervical spinal fusion hardware. IMPRESSION: 1. Cardiomegaly with mild pulmonary edema. 2. Emphysema. 3. Mild mediastinal lymphadenopathy, likely reactive. 4. Trace pericardial effusion. 5. Cholecystectomy. ACT 112: Negative or not required by law. Electronically signed by: Talha Caballero M.D. 08/23/2023 10:[address] 08/23/23 09:05 CT angio head w con, CT angio neck with con, CT head/brain wo con CLINICAL HISTORY: 83 years-old Female with slurred speech, facial droop. Acute stroke like symptoms COMPARISON STUDY: Head CT 08/14/2023, brain MRI 08/13/2023 TECHNIQUE: Unenhanced axial CT scan of the brain is performed. Subsequently, following the IV administration of 118 cc of Optiray, CT angiogram of the head and neck was performed from the aortic arch to the skull apex. Images are reviewed in the axial, sagittal, and coronal planes. 3-D MIPS images are created and assessed. IV contrast was administered without complication. All measurements were obtained according to NASCET criteria. A dose lowering technique was utilized adhering to the principles of ALARA. CT DOSE: 1124.49 mGy.cm (accession [id number]), 602.96 mGy.cm (accession [id number]) FINDINGS: CT BRAIN: There is no acute intracranial hemorrhage, midline shift, hydrocephalus, intracranial mass, territorial ischemia or abnormal extra-axial collections. No abnormal intra-axial or extra-axial enhancement. Involutional changes with chronic microvascular ischemic disease. Mastoid air cells and middle ear cavities are clear. No calvarial fracture. Chronic severe mucoperiosteal thickening of the frontal, ethmoid and axillary sinuses. Prior bilateral lens repair. CT ANGIOGRAM OF THE HEAD AND NECK: Three-vessel morphology of the thoracic aortic arch. Patency of the innominate and image subclavian arteries. The common and internal carotid arteries are patent. Atherosclerosis of the carotid bulbs without significant stenosis. Additional calcified plaque of the cavernous, clinoid and supraclinoid segments. The bilateral anterior and middle cerebral arteries are also patent. The vertebral and basilar arteries are patent. Mild to moderate multifocal luminal narrowing of the posterior cerebral arteries. There is high-grade stenosis of the P2 segment right posterior cerebral artery. There is no aneurysm, additional high-grade stenosis, or proximal branch occlusion identified. Dural sinuses appear patent. Pulmonary emphysema. Intralobular septal thickening may represent a component of pulmonary edema. Postoperative and degenerative changes of the cervical spine. Left subclavian pacer. IMPRESSION: 1. No acute intracranial abnormality. 2. Multifocal stenoses of the posterior cerebral arteries, high-grade on the right. 3. Otherwise unremarkable CTA of the head and neck. 4. Pulmonary emphysema. 5. Severe chronic paranasal sinus disease. ACT 112: Negative or not required by law. The above report was generated using voice recognition software. It may contain grammatical, syntax or spelling errors. Electronically signed by: Talha Caballero M.D. 08/23/2023 9:50 AM Head CTA 08/23/23 09:16 CT angio head w con, CT angio neck with con, CT head/brain wo con CLINICAL HISTORY: 83 years-old Female with slurred speech, facial droop. Acute stroke like symptoms COMPARISON STUDY: Head CT 08/14/2023, brain MRI 08/13/2023 TECHNIQUE: Unenhanced axial CT scan of the brain is performed. Subsequently, following the IV administration of 118 cc of Optiray, CT angiogram of the head and neck was performed from the aortic arch to the skull apex. Images are reviewed in the axial, sagittal, and coronal planes. 3-D MIPS images are created and assessed. IV contrast was administered without complication. All measurements were obtained according to NASCET criteria. A dose lowering technique was utilized adhering to the principles of ALARA. CT DOSE: 1124.49 mGy.cm (accession [id number]), 602.96 mGy.cm (accession [id number]) FINDINGS: CT BRAIN: There is no acute intracranial hemorrhage, midline shift, hydrocephalus, intracranial mass, territorial ischemia or abnormal extra-axial collections. No abnormal intra-axial or extra-axial enhancement. Involutional changes with chronic microvascular ischemic disease. Mastoid air cells and middle ear cavities are clear. No calvarial fracture. Chronic severe mucoperiosteal thickening of the frontal, ethmoid and axillary sinuses. Prior bilateral lens repair. CT ANGIOGRAM OF THE HEAD AND NECK: Three-vessel morphology of the thoracic aortic arch. Patency of the innominate and image subclavian arteries. The common and internal carotid arteries are patent. Atherosclerosis of the carotid bulbs without significant stenosis. Additional calcified plaque of the cavernous, clinoid and supraclinoid segments. The bilateral anterior and middle cerebral arteries are also patent. The vertebral and basilar arteries are patent. Mild to moderate multifocal luminal narrowing of the posterior cerebral arteries. There is high-grade stenosis of the P2 segment right posterior cerebral artery. There is no aneurysm, additional high-grade stenosis, or proximal branch occlusion identified. Dural sinuses jyoti ear patent. Pulmonary emphysema. Intralobular septal thickening may represent a component of pulmonary edema. Postoperative and degenerative changes of the cervical spine. Left subclavian pacer. IMPRESSION: 1. No acute intracranial abnormality. 2. Multifocal stenoses of the posterior cerebral arteries, high-grade on the right. 3. Otherwise unremarkable CTA of the head and neck. 4. Pulmonary emphysema. 5. Severe chronic paranasal sinus disease. ACT 112: Negative or not required by law. The above report was generated using voice recognition software. It may contain grammatical, syntax or spelling errors. Electronically signed by: Talha Caballero M.D. 08/23/2023 9:50 AM Neck CTA 08/23/23 09:16 CT angio head w con, CT angio neck with con, CT head/brain wo con CLINICAL HISTORY: 83 years-old Female with slurred speech, facial droop. Acute stroke like symptoms COMPARISON STUDY: Head CT 08/14/2023, brain MRI 08/13/2023 TECHNIQUE: Une nhanced axial CT scan of the brain is performed. Subsequently, following the IV administration of 118 cc of Optiray, CT angiogram of the head and neck was performed from the aortic arch to the skull apex. Images are reviewed in the axial, sagittal, and coronal planes. 3-D MIPS images are created and assessed. IV contrast was administered without complication. All measurements were obtained according to NASCET criteria. A dose lowering technique was utilized adhering to the principles of ALARA. CT DOSE: 1124.49 mGy.cm (accession [id number]), 602.96 mGy.cm (accession [id number]) FINDINGS: CT BRAIN: There is no acute intracranial hemorrhage, midline shift, hydrocephalus, intracranial mass, territorial ischemia or abnormal extra-axial collections. No abnormal intra-axial or extra-axial enhancement. Involutional changes with chronic microvascular ischemic disease. Mastoid air cells and middle ear cavities are clear. No calvarial fracture. Chronic severe mucoperiosteal thickening of the frontal, ethmoid and axillary sinuses. Prior bilateral lens repair. CT ANGIOGRAM OF THE HEAD AND NECK: Three-vessel morphology of the thoracic aortic arch. Patency of the innominate and image subclavian arteries. The common and internal carotid arteries are patent. Atherosclerosis of the carotid bulbs without significant stenosis. Additional calcified plaque of the cavernous, clinoid and supraclinoid segments. The bilateral anterior and middle cerebral arteries are also patent. The vertebral and basilar arteries are patent. Mild to moderate multifocal luminal narrowing of the posterior cerebral arteries. There is high-grade stenosis of the P2 segment right posterior cerebral artery. There is no aneurysm, additional high-grade stenosis, or proximal branch occlusion identified. Dural sinuses appear patent. Pulmonary emphysema. Intralobular septal thickening may represent a component of pulmonary edema. Postoperative and degenerative changes of the cervical spine. Left subclavian pacer. IMPRESSION: 1. No acute intracranial abnormality. 2. Multifocal stenoses of the posterior cerebral arteries, high-grade on the right. 3. Otherwise unremarkable CTA of the head and neck. 4. Pulmonary emphysema. 5. Severe chronic paranasal sinus disease. ACT 112: Negative or not required by law. The above report was generated using voice recognition software. It may contain grammatical, syntax or spelling errors. Electronically signed by: Talha Caballero M.D. 08/23/2023 9:50 AM (4) CKD (chronic kidney disease) Chronic kidney disease stage: unspecified stage Qualified Code(s): N18.9 - Chronic kidney disease, unspecified (5) Anemia Iron deficiency anemia type: chronic blood loss
[2023-08-28] MEDS: allopurinoL 300 MG TAB PO SCH (22:03)
[2023-08-28] MEDS: MONTELUKAST SODIUM 10 MG TABLET PO SCH (22:03)
[2023-08-29] MEDS: LEVOTHYROXINE SODIUM 125 MCG TABLET PO SCH (05:19)
[2023-08-29 07:45] LABS: Hematocrit (blood only) 22.4 % (37.0-47.0); Hemoglobin 7.4 g/dl (12.0-16.0); Mean Corpuscular Hemoglobin 30.3 pg (25.0-34.0); Mean Corpuscular Volume 91.8 fL (80.0-100.0); Mean Platelet Volume 11.1 fL (9.4-12.4); Nucleated RBC # (auto) 0.02 K/uL (0.00-0.12); Nucleated RBC % (auto) 0.2 %; Platelet Count 176 K/uL (130-400); RDW Coefficient of Variation 16.7 % (11.5-14.5); RDW Standard Deviation 55.8 fL (36.4-46.3); Red Blood Count 2.44 M/uL (4.20-5.40); White Blood Count 9.54 K/ul (4.8-10.8)
[2023-08-29 08:01] LABS: BUN Creatinine Ratio 26.1 (10-20); Calcium 8.6 mg/dl (8.6-10.3); Creatinine Clr Calc Pharmacy 23.5 ml/min; Est GFR (African American) 28.9 ml/min; Est GFR (Non-African American) 24.9 ml/min; Potassium 4.4 mmol/L (3.5-5.1)
[2023-08-29] MEDS: INSULIN ASPART PER UNIT CHARGE SC SCH ×4 (08:28→22:05)
[2023-08-29] MEDS: ASPIRIN 81 MG ECTAB PO SCH (08:30)
[2023-08-29] MEDS: UMECLIDINIUM/VILANTEROL 62.5/25MCG 7 PUFFS/INHALER INH SCH (08:30)
[2023-08-29] MEDS: SERTRALINE HCL 50 MG TABLET PO SCH (08:30)
[2023-08-29] MEDS: TORSEMIDE 10 MG TAB PO SCH (08:30)
[2023-08-29] MEDS: FOLIC ACID 1 MG TAB PO SCH (08:31)
[2023-08-29] MEDS: PANTOprazole 40 MG TAB PO SCH ×2 (08:31→20:12)
[2023-08-29] MEDS: ATORVASTATIN 20 MG TAB PO SCH (08:31)
[2023-08-29] MEDS: CLOPIDOGREL BISULFATE 75 MG TAB PO SCH (08:31)
[2023-08-29] MEDS: FERROUS SULFATE 325 MG TAB PO SCH (08:31)
[2023-08-29] MEDS: CHOLECALCIFEROL 1,000 UNITS 25 MCG TAB PO SCH (08:31)
[2023-08-29] MEDS: CYANOCOBALAMIN (B-12) 100 MCG TABLET PO SCH (08:31)
[2023-08-29] MEDS: IRON SUCROSE 200 MG in 0.9 % SODIUM CHLORIDE 100 ML IV SCH (08:58)
[2023-08-29] MEDS: SOTALOL HCL 80 MG TAB PO SCH (09:57)
[2023-08-29] MEDS ORDERED: SODIUM CHLORIDE 0.9% 250 ML IV PRN (14:37)
[2023-08-29] MEDS ORDERED: TORSEMIDE 10 MG TAB PO ONE (14:41)
--- NOTE | 2023-08-29 17:27 | Hospitalist Progress Note ---
Date of Service August 29, 2023 Assessment & Plan (1) Generalized weakness: (2) S/P mitral valve clip implantation: (3) Presence of Watchman left atrial appendage closure device: (4) CKD (chronic kidney disease): (5) Anemia: (6) Depression: (7) Hypothyroidism: (8) SSS (sick sinus syndrome): Plan 82 yo F w/ hx of CAD, history of PAF, presence of Watchman device, chronic diastolic CHF, severe tricuspid regurg, pulm hypertension, history of mitral valve clip implantation, T2DM with CKD stage IIIb and retinopathy, secondary hyperparathyroidism, hypothyroidism, hyperlipidemia, RADHA, asthma, GERD, history of Mnire's disease, anemia, history of TIA, depression, history of endometrial cancer and recent admission for stroke workup, admitted once more with generalized weakness. 08/23-Stroke alert in AM, last known well of 8:50AM per nursing. Then noted slurred speech, slight facial droop, pt with headache, dizziness, heavy tongue and numbness [place] neurolog[place] [facility] [place] recommended STOP aspirin and plavix. Advised to Stop Plavix indefinitely, continue aspirin once stable. Low suspicion for stroke, symptoms more likely from acute blood loss (Hgb 6.5) requiring transfusion. CT head and neck images reviewed by telestroke neurologist, which showed no acute stroke, recommended repeating MRI brain (pt had one recently on 08/15) if pt had persistent symptoms post-transfusion. Generalized Weakness Pt recently admitted and discharged on 08/15 after stroke work up Was seen by PT at that time who recommended home with family support. Was seen by her pcp with frequent falls at home, 2 within the last week Per son, has been having progressive lower extremity weakness that causes her to slip and fall--retrospectively this appears to be from anemia. Pt denies LOC Outpt labs done on 08/21 with noted Cr of 2.4, head CT with no acute changes, continued sinus opacification EKG with noted paced rhythm, Echo from 08/15 with LVH, dilated atrium, EF 60- 65%, mild to moderate pulm HTN Hgb chronically low at baseline of approximately 8.5, dropped to 6.5 AM 08/23. Ordered to be transfused 2 Units UA with no signs of infection COVID test negative Chest xray notes cardiomegaly with pulm vascular congestion, chest CT confirms this-->restarted torsemide per home regimen. Electrolytes grossly within normal limits PT/OT orders placed once more for further evaluation-->rehab is recommended, awaiting bed at [facility] Anemia Hgb chronically decreased, normocytic at this time -at home on iron, folic acid and b12 supplementation Baseline ~8.5, dropped to 6.5 AM of 08/23 transfused 2 units pRBCs-no active bleeding Rule out hemolysis given recent mitral clip placement a couple of months ago Peripheral smear shows rare shistocytes and spherocytes, there are no dysplastic features and no circulating immature myeloid precursors or blasts seen. There are also occasional tear drop cells and where the anemia seen may be related to chronic disease, ruling out myelodysplastic syndrome is recommended. Some RBC destruction may be occurring from prosthetic heart clip. Would recommend following up with her agricultural education instructor following this admission for further workup of these issues. Would recommend CBC every two weeks while on ASA/Plavix with preventive blood transfusions if needed to avoid hospitalization from symptomatic anemia again. GI eval - as outpt- recommending conservative management w/ EGD/EUS later this month as OP, consideration of repeat colonoscopy. Started IV iron per nephrology - as per review - pt has hx of iron deficiency anemia. Pt has 08/19 t sat 15% and ferritin 408 in EPIC; [facility] heme in 03/2023 attributed anemia to iron deficiency and CKD. Started IV iron load 200 mg IV daily x 5 days (EOT 08/31); may consider SIENNA after d/c Hgb 7.4 today and discussed benefit of transfusing 1u prbcs given patient's complex comorbidities - Dr. Queen in agreement. Re-obtained consent as it was not on paper chart from earlier in admission. Blood consent was obtained from the patient as delegated by Dr. Natarajan. Risks and benefits were explained. All questions were answered, and the patient was offered the opportunity to discuss with attending physician and declined. Giving torsemide 20mg PO following transfusion Ok to continue IV iron for remaining 2 days Acute on Chronic Kidney disease Etiology of worsening renal function likely prerenal azotemia in the setting of acute anemia Nephrology consulted for further recs given worsening and persistent improved creatinine, which is close to her baseline at high 1s Chronic Sinusitis Noted on head imaging during last admission for stroke/TIA workup Noted once more on recent repeat head CT ordered by pcp Continued doxycycline, and finished 10 day course Due for outpt followup with ENT Pulmonary HTN Chest xray with noted pulmonary vascular congestion, cardiomegaly Echo with noted worsening pulm HTN Followup as outpatient PAF 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 Rivera-requires DAPT x 45 days. This was restarted 08/24 Cardiac pacemaker 2/2 SSS not on anticoagulation due to severe GIB in past Continue sotalol at reduced dosing per cardiology May ultimately need to discontinue this medication, however, she is poorly tolerant of atrial fibrillation in the past and there is no evidence of QT prolongation or rhythm concerns. Hypothyroidism TSH elevated, t4 wnl Continue home levothyroxine and repeat TFTs as outpatient when feeling better. T2DM diet controlled, last a1c 6.8 ISS RADHA O2 at HS HLD chronic,stable continue statin Diet: DMII DVT ppx: SCDs, no chemoprophy 2/2 hx of severe GIB in past DNR/DNI Dispo-to rehab Patient seen in collaboration with Dr. Natarajan. Please see addendum. Daughter updated at bedside. Admission and Anticipated Discharge Date Admission Date: August 22, 2023 Supervising Physician Co-Signing Physician Notes Pt seen and examined by me, care coordinated w/ Ailin Stevenson PA-C, pls refer to her note above for further detail. Pt is currently laying in bed in NAD. Denies any chest pain, increased shortness of breath (however has some w/ exertion), abd. pain, n/v. Hgb stable at 7.4 and receiving IV iron as ordered and discussed w/ nephrology. Discussed poss. 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 Pt is awake, alert, able to answer simple questions appropriately. Lungs are CTAB, heart sounds rrr, abdomen soft and nontender. Monitor H&H. Awaiting placement at rehab. MD Rosa Isela Subjective Seen and examined in 375-1. Comfortable, no acute issues overnight. Continues to feel generally fatigued and weak but otherwise back to baseline. Awaiting discharge to facility. No F/C, lightheadedness, CP, SOB, N/V, abd pain, dysuria, diarrhea or constipation. Review of Systems Review of Systems: At least ten systems reviewed and negative except as noted in the HPI. Physical Exam Physical Exam: Gen: WD/WN, NAD, laying in bed comfortably, A&Ox3 HEENT: Normocephalic, atraumatic, conjunctivae moist, sclerae anicteric, mucous membranes moist Lung: Clear to Auscultation bilaterally, no wheezes/rales/rhonchi Heart: Regular rate, regular rhythm, no murmurs, rubs, or gallops Abdomen: Soft, NT, ND +BS x 4 Extremities: no edema Skin: Warm, no rash Results & Data Results & Data Vital Signs (Past 12 Hours) Vital Signs Temp Pulse Pulse Resp BP Pulse Ox O2 Del Method 08/29/23 15:21 36.6 C 63 16 111/64 96 Room Air 08/29/23 12:13 36.3 C L 65 16 128/48 L 97 Room Air 08/29/23 07:51 36.5 C 64 14 116/48 L 94 Room Air Laboratory Results Short CBC 08/29/23 Range/Units 07:05 WBC 9.54 (4.8-10.8) K/ul Hgb 7.4 L (12.0-16.0) g/dl Hct 22.4 L (37.0-47.0) % Plt Count 176 (130-400) K/uL BMP 08/29/23 07:05 Sodium 138 Potassium 4.4 Chloride 110 H Carbon Dioxide 21 BUN 48 H Creatinine 1.84 H Glucose 104 H Calcium 8.6 Diagnostic Findings Chest X-Ray 08/22/23 12:56 XR chest 1V not portable HISTORY: 83 years-old Female Weakness acute weakness COMPARISON: 11/07/2022 TECHNIQUE: PA view of the chest FINDINGS: Cardiac silhouette is enlarged. There is a left subclavian pacer. Surgical clips project over the left heart border right upper quadrant. No pneumothorax, pleural effusion or airspace consolidation. Pulmonary vascular congestion. Fusion hardware noted within the cervical spine. Cholecystectomy. Left atrial exclusion device. IMPRESSION: Cardiomegaly with pulmonary vascular congestion. ACT 112: Negative or not required by law. The above report was generated using voice recognition software. It may contain grammatical, syntax or spelling errors. Electronically signed by: Talha Caballero M.D. 08/22/2023 1:[address] 08/23/23 08:00 CT chest diagnostic wo con CLINICAL HISTORY: 83 years-old Female with weakness, pulm vasc congestion, cardiomegaly. Acute weakness with cardiomegaly TECHNIQUE: Multiaxial CT images of the chest were performed without contrast. A dose lowering technique was utilized adhering to the principles of ALARA. COMPARISON: CTA neck of same day, chest CT 01/04/2022 FINDINGS: 9 mm hypodense left thyroid nodule. 11 mm subcarinal lymph node is likely benign. Trace pericardial effusion. Moderate cardiomegaly with moderate coronary artery calcifications. Left atrial exclusion device. Left subclavian pacer. Intralobular septal thickening. Mild pulmonary emphysema. Stable 3 mm groundglass right apical pulmonary nodule, image 36. Mild bibasilar ground glass densities. Bronchial wall thickening. Central airways are patent. No airspace consolidation typical for pneumonia. Cortical thinning of the kidneys with bilateral renal cysts. Cholecystectomy. Atrophy of the pancreas. Unremarkable soft tissues. No acute fracture. Partially imaged cervical spinal fusion hardware. IMPRESSION: 1. Cardiomegaly with mild pulmonary edema. 2. Emphysema. 3. Mild mediastinal lymphadenopathy, likely reactive. 4. Trace pericardial effusion. 5. Cholecystectomy. ACT 112: Negative or not required by law. Electronically signed by: Talha Caballero M.D. 08/23/2023 10:[address] 08/23/23 09:05 CT angio head w con, CT angio neck with con, CT head/brain wo con CLINICAL HISTORY: 83 years-old Female with slurred speech, facial droop. Acute stroke like symptoms COMPARISON STUDY: Head CT 08/14/2023, brain MRI 08/13/2023 TECHNIQUE: Unenhanced axial CT scan of the brain is performed. Subsequently, following the IV administration of 118 cc of Optiray, CT angiogram of the head and neck was performed from the aortic arch to the skull apex. Images are reviewed in the axial, sagittal, and coronal planes. 3-D MIPS images are created and assessed. IV contrast was administered without complication. All measurements were obtained according to NASCET criteria. A dose lowering technique was utilized adhering to the principles of ALARA. CT DOSE: 1124.49 mGy.cm (accession [id number]), 602.96 mGy.cm (accession [id number]) FINDINGS: CT BRAIN: There is no acute intracranial hemorrhage, midline shift, hydrocephalus, intracranial mass, territorial ischemia or abnormal extra-axial collections. No abnormal intra-axial or extra-axial enhancement. Involutional changes with chronic microvascular ischemic disease. Mastoid air cells and middle ear cavities are clear. No calvarial fracture. Chronic severe mucoperiosteal thickening of the frontal, ethmoid and axillary sinuses. Prior bilateral lens repair. CT ANGIOGRAM OF THE HEAD AND NECK: Three-vessel morphology of the thoracic aortic arch. Patency of the innominate and image subclavian arteries. The common and internal carotid arteries are patent. Atherosclerosis of the carotid bulbs without significant stenosis. Additional calcified plaque of the cavernous, clinoid and supraclinoid segments. The bilateral anterior and middle cerebral arteries are also patent. The vertebral and basilar arteries are patent. Mild to moderate multifocal luminal narrowing of the posterior cerebral arteries. There is high-grade stenosis of the P2 segment right posterior cerebral artery. There is no aneurysm, additional high-grade stenosis, or proximal branch occlusion identified. Dural sinuses appear patent. Pulmonary emphysema. Intralobular septal thickening may represent a component of pulmonary edema. Postoperative and degenerative changes of the cervical spine. Left subclavian pacer. IMPRESSION: 1. No acute intracranial abnormality. 2. Multifocal stenoses of the posterior cerebral arteries, high-grade on the right. 3. Otherwise unremarkable CTA of the head and neck. 4. Pulmonary emphysema. 5. Severe chronic paranasal sinus disease. ACT 112: Negative or not required by law. The above report was generated using voice recognition software. It may contain grammatical, syntax or spelling errors. Electronically signed by: Talha Caballero M.D. 08/23/2023 9:50 AM Head CTA 08/23/23 09:16 CT angio head w con, CT angio neck with con, CT head/brain wo con CLINICAL HISTORY: 83 years-old Female with slurred speech, facial droop. Acute stroke like symptoms COMPARISON STUDY: Head CT 08/14/2023, brain MRI 08/13/2023 TECHNIQUE: Unenhanced axial CT scan of the brain is performed. Subsequently, following the IV administration of 118 cc of Optiray, CT angiogram of the head and neck was performed from the aortic arch to the skull apex. Images are reviewed in the axial, sagittal, and coronal planes. 3-D MIPS images are created and assessed. IV contrast was administered without complication. All measurements were obtained according to NASCET criteria. A dose lowering technique was utilized adhering to the principles of ALARA. CT DOSE: 1124.49 mGy.cm (accession [id number]), 602.96 mGy.cm (accession [id number]) FINDINGS: CT BRAIN: There is no acute intracranial hemorrhage, midline shift, hydrocephalus, intracranial mass, territorial ischemia or abnormal extra-axial collections. No abnormal intra-axial or extra-axial enhancement. Involutional changes with chronic microvascular ischemic disease. Mastoid air cells and middle ear cavities are clear. No calvarial fracture. Chronic severe mucoperiosteal thickening of the frontal, ethmoid and axillary sinuses. Prior bilateral lens repair. CT ANGIOGRAM OF THE HEAD AND NECK: Three-vessel morphology of the thoracic aortic arch. Patency of the innominate and image subclavian arteries. The common and internal carotid arteries are patent. Atherosclerosis of the carotid bulbs without significant stenosis. Additional calcified plaque of the cavernous, clinoid and supraclinoid segments. The bilateral anterior and middle cerebral arteries are also patent. The vertebral and basilar arteries are patent. Mild to moderate multifocal luminal narrowing of the posterior cerebral arteries. There is high-grade stenosis of the P2 segment right posterior cerebral artery. There is no aneurysm, additional high-grade stenosis, or proximal branch occlusion identified. Dural sinuses appear patent. Pulmonary emphysema. Intralobular septal thickening may represent a component of pulmonary edema. Postoperative and degenerative changes of the cervical spine. Left subclavian pacer. IMPRESSION: 1. No acute intracranial abnormality. 2. Multifocal stenoses of the posterior cerebral arteries, high-grade on the right. 3. Otherwise unremarkable CTA of the head and neck. 4. Pulmonary emphysema. 5. Severe chronic paranasal sinus disease. ACT 112: Negative or not required by law. The above report was generated using voice recognition software. It may contain grammatical, syntax or spelling errors. Electronically signed by: Talha Caballero M.D. 08/23/2023 9:50 AM Neck CTA 08/23/23 09:16 CT angio head w con, CT angio neck with con, CT head/brain wo con CLINICAL HISTORY: 83 years-old Female with slurred speech, facial droop. Acute stroke like symptoms COMPARISON STUDY: Head CT 08/14/2023, brain MRI 08/13/2023 TECHNIQUE: Unenhanced axial CT scan of the brain is performed. Subsequently, following the IV administration of 118 cc of Optiray, CT angiogram of the head and neck was performed from the aortic arch to the skull apex. Images are reviewed in the axial, sagittal, and coronal planes. 3-D MIPS images are created and assessed. IV contrast was administered without complication. All measurements were obtained according to NASCET criteria. A dose lowering technique was utilized adhering to the principles of ALARA. CT DOSE: 1124.49 mGy.cm (accession [id number]), 602.96 mGy.cm (accession [id number]) FINDINGS: CT BRAIN: There is no acute intracranial hemorrhage, midline shift, hydrocephalus, intracranial mass, territorial ischemia or abnormal extra-axial collections. No abnormal intra-axial or extra-axial enhancement. Involutional changes with chronic microvascular ischemic disease. Mastoid air cells and middle ear cavities are clear. No calvarial fracture. Chronic severe mucoperiosteal thic kening of the frontal, ethmoid and axillary sinuses. Prior bilateral lens repair. CT ANGIOGRAM OF THE HEAD AND NECK: Three-vessel morphology of the thoracic aortic arch. Patency of the innominate and image subclavian arteries. The common and internal carotid arteries are patent. Atherosclerosis of the carotid bulbs without significant stenosis. Additional calcified plaque of the cavernous, clinoid and supraclinoid segments. The bilateral anterior and middle cerebral arteries are also patent. The vertebral and basilar arteries are patent. Mild to moderate multifocal luminal narrowing of the posterior cerebral arteries. There is high-grade stenosis of the P2 segment right posterior cerebral artery. There is no aneurysm, additional high-grade stenosis, or proximal branch occlusion identified. Dural sinuses appear patent. Pulmonary emphysema. Intralobular septal thickening may represent a component of pulmonary edema. Postoperative and degenerative changes of the cervical spine. Left subclavian pacer. IMPRESSION: 1. No acute intracranial abnormality. 2. Multifocal stenoses of the posterior cerebral arteries, high-grade on the right. 3. Otherwise unremarkable CTA of the head and neck. 4. Pulmonary emphysema. 5. Severe chronic paranasal sinus disease. ACT 112: Negative or not required by law. The above report was generated using voice recognition software. It may contain grammatical, syntax or spelling errors. Electronically signed by: Talha Caballero M.D. 08/23/2023 9:50 AM (4) CKD (chronic kidney disease) Chronic kidney disease stage: unspecified stage Qualified Code(s): N18.9 - Chronic kidney disease, unspecified (5) Anemia Iron deficiency anemia type: chronic blood loss
[2023-08-29] MEDS: allopurinoL 300 MG TAB PO SCH (20:12)
[2023-08-29] MEDS: MONTELUKAST SODIUM 10 MG TABLET PO SCH (20:12)
[2023-08-30] MEDS: LEVOTHYROXINE SODIUM 125 MCG TABLET PO SCH (06:28)
[2023-08-30 07:53] LABS: Hematocrit (blood only) 29.1 % (37.0-47.0); Hemoglobin 9.5 g/dl (12.0-16.0); Mean Corpuscular Hemoglobin 30.5 pg (25.0-34.0); Mean Corpuscular Hgb Conc 32.6 g/dL (32.0-36.0); Mean Corpuscular Volume 93.6 fL (80.0-100.0); Mean Platelet Volume 10.2 fL (9.4-12.4); Nucleated RBC # (auto) 0.02 K/uL (0.00-0.12); Nucleated RBC % (auto) 0.2 %; Platelet Count 184 K/uL (130-400); RDW Coefficient of Variation 16.9 % (11.5-14.5); RDW Standard Deviation 56.1 fL (36.4-46.3); Red Blood Count 3.11 M/uL (4.20-5.40); White Blood Count 9.33 K/ul (4.8-10.8)
[2023-08-30 08:07] LABS: BUN Creatinine Ratio 24.5 (10-20); Calcium 8.8 mg/dl (8.6-10.3); Creatinine Clr Calc Pharmacy 20.8 ml/min; Est GFR (African American) 24.9 ml/min; Est GFR (Non-African American) 21.5 ml/min; Magnesium 1.8 mg/dl (1.7-2.4); Potassium 4.2 mmol/L (3.5-5.1)
[2023-08-30] MEDS: INSULIN ASPART PER UNIT CHARGE SC SCH ×4 (08:33→21:14)
[2023-08-30] MEDS: ASPIRIN 81 MG ECTAB PO SCH (08:41)
[2023-08-30] MEDS: PANTOprazole 40 MG TAB PO SCH ×2 (08:41→21:13)
[2023-08-30] MEDS: CLOPIDOGREL BISULFATE 75 MG TAB PO SCH (08:42)
[2023-08-30] MEDS: SERTRALINE HCL 50 MG TABLET PO SCH (08:42)
[2023-08-30] MEDS: CYANOCOBALAMIN (B-12) 100 MCG TABLET PO SCH (08:42)
[2023-08-30] MEDS: CHOLECALCIFEROL 1,000 UNITS 25 MCG TAB PO SCH (08:43)
[2023-08-30] MEDS: FOLIC ACID 1 MG TAB PO SCH (08:43)
[2023-08-30] MEDS: UMECLIDINIUM/VILANTEROL 62.5/25MCG 7 PUFFS/INHALER INH SCH (08:44)
[2023-08-30] MEDS: TORSEMIDE 10 MG TAB PO SCH (08:44)
[2023-08-30] MEDS: ATORVASTATIN 20 MG TAB PO SCH (08:45)
[2023-08-30] MEDS: FERROUS SULFATE 325 MG TAB PO SCH (08:45)
[2023-08-30] MEDS: SOTALOL HCL 80 MG TAB PO SCH (08:55)
[2023-08-30] MEDS: IRON SUCROSE 200 MG in 0.9 % SODIUM CHLORIDE 100 ML IV SCH (09:07)
--- NOTE | 2023-08-30 11:32 | Hospitalist Progress Note ---
Date of Service August 30, 2023 Assessment & Plan (1) Generalized weakness: (2) S/P mitral valve clip implantation: (3) Presence of Watchman left atrial appendage closure device: (4) CKD (chronic kidney disease): (5) Anemia: (6) Depression: (7) Hypothyroidism: (8) SSS (sick sinus syndrome): Plan 82 yo F w/ hx of CAD, history of PAF, presence of Watchman device, chronic diastolic CHF, severe tricuspid regurg, pulm hypertension, history of mitral valve clip implantation, T2DM with CKD stage IIIb and retinopathy, secondary hyperparathyroidism, hypothyroidism, hyperlipidemia, RADHA, asthma, GERD, history of Mnire's disease, anemia, history of TIA, depression, history of endometrial cancer and recent admission for stroke workup, admitted once more with generalized weakness. 08/23-Stroke alert in AM, last known well of 8:50AM per nursing. Then noted slurred speech, slight facial droop, pt with headache, dizziness, heavy tongue and numbness Seen by telestroke neurologist from [facility] [place] who recommended STOP aspirin and plavix. Advised to Stop Plavix indefinitely, continue aspirin once stable. Low suspicion for stroke, symptoms more likely from acute blood loss (Hgb 6.5) requiring transfusion. CT head and neck images reviewed by telestroke neurologist, which showed no acute stroke, recommended repeating MRI brain (pt had one recently on 08/15) if pt had persistent symptoms post-transfusion. Generalized Weakness Pt recently admitted and discharged on 08/15 after stroke work up Was seen by PT at that time who recommended home with family support. Was seen by her pcp with frequent falls at home, 2 within the last week Per son, has been having progressive lower extremity weakness that causes her to slip and fall--retrospectively this appears to be from anemia. Pt denies LOC Outpt labs done on 08/21 with noted Cr of 2.4, head CT with no acute changes, continued sinus opacification EKG with noted paced rhythm, Echo from 08/15 with LVH, dilated atrium, EF 60- 65%, mild to moderate pulm HTN Hgb chronically low at baseline of approximately 8.5, dropped to 6.5 AM 08/23. Ordered to be transfused 2 Units UA with no signs of infection COVID test negative Chest xray notes cardiomegaly with pulm vascular congestion, chest CT confirms this-->restarted torsemide per home regimen. Electrolytes grossly within normal limits PT/OT orders placed once more for further evaluation-->rehab is recommended, awaiting bed at [facility] Anemia Hgb chronically decreased, normocytic at this time -at home on iron, folic acid and b12 supplementation Baseline ~8.5, dropped to 6.5 AM of 08/23 transfused 2 units pRBCs-no active bleeding Rule out hemolysis given recent mitral clip placement a couple of months ago Peripheral smear shows rare shistocytes and spherocytes, there are no dysplastic features and no circulating immature myeloid precursors or blasts seen. There are also occasional tear drop cells and where the anemia seen may be related to chronic disease, ruling out myelodysplastic syndrome is recommended. Some RBC destruction may be occurring from prosthetic heart clip. Would recommend following up with her yardage estimator (Dr. Hood) following this admission for further workup of these issues. Would recommend CBC every two weeks while on ASA/Plavix with preventive blood transfusions if needed to avoid hospitalization from symptomatic anemia again. GI eval - as outpt- recommending conservative management w/ EGD/EUS later this month as OP, consideration of repeat colonoscopy. Started IV iron per nephrology - as per review - pt has hx of iron deficiency anemia. Pt has 08/19 t sat 15% and ferritin 408 in EPIC; [facility] heme in 03/2023 attributed anemia to iron deficiency and CKD. Started IV iron load 200 mg IV daily x 5 days (EOT 08/31); may consider SIENNA after d/c Hgb 7.4 on 08/29/23 and discussed benefit of transfusing 1u prbcs given patient's complex comorbidities - Dr. Queen in agreement. Re-obtained consent as it was not on paper chart from earlier in admission. Blood consent was obtained from the patient as delegated by Dr. Natarajan. Risks and benefits were explained. All questions were answered, and the patient was offered the opportunity to discuss with attending physician and declined. Giving torsemide 20mg PO following transfusion Ok to continue IV iron for remaining 2 days 08/30 Hgb 9.5, will cont. to monitor Acute on Chronic Kidney disease Etiology of worsening renal function likely prerenal azotemia in the setting of acute anemia Nephrology consulted for further recs given worsening and persistent improved creatinine, which is close to her baseline at high 1s Chronic Sinusitis Noted on head imaging during last admission for stroke/TIA workup Noted once more on recent repeat head CT ordered by pcp Continued doxycycline, and finished 10 day course Due for outpt followup with ENT Pulmonary HTN Chest xray with noted pulmonary vascular congestion, cardiomegaly Echo with noted worsening pulm HTN Followup as outpatient PAF 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 Rivera-requires DAPT x 45 days. This was restarted 08/24 Cardiac pacemaker 2/2 SSS not on anticoagulation due to severe GIB in past Continue sotalol at reduced dosing per cardiology May ultimately need to discontinue this medication, however, she is poorly tolerant of atrial fibrillation in the past and there is no evidence of QT prolongation or rhythm concerns. Hypothyroidism TSH elevated, t4 wnl Continue home levothyroxine and repeat TFTs as outpatient when feeling better. T2DM diet controlled, last a1c 6.8 ISS RADHA O2 at HS HLD chronic,stable continue statin Diet: DMII DVT ppx: SCDs, no chemoprophy 2/2 hx of severe GIB in past DNR/DNI Dispo-to rehab Admission and Anticipated Discharge Date Admission Date: August 22, 2023 Subjective 83 yo admitted for leg weakness and falls, 2/2 anemia all initial symptoms are improved/resolved. Overall feeling better no chest pain, shortness of breath, no abd pain, n/v Discussed initially w/ Dr. Green (nephro) and started IV iron, then discussed again w/ Dr. Queen - and decided to transfuse 1 unit of pRBC. Hgb stable, not decreased significantly but just above 7 yesterday. Received 1 unit, and today's HGb appears above 9. will cont. to monitor. Also previously discussed w/ Dr. Chavarria (cardiology) - need for ASA + plavix. Need for outpt hematology follow up (pt follows w/ Dr. Hood). Pt's daughter and present at the bedside today. Review of Systems Review of Systems: All systems reviewed & are unremarkable except as noted in Subjective Physical Exam Physical Exam: CONSTITUTIONAL: WNWD, F in NAD EYES: normal conjunctivae, no scleral icterus ENT: external ear and nose normal, MMM NECK: supple RESPIRATORY: clear to auscultation bilaterally, no crackles, rales or wheezes, normal respiratory effort CARDIOVASCULAR: regular rate and rhythm, S1 and 2 heard without murmurs CHEST: inspection of chest is normal GASTROINTESTINAL: soft, nontender, ND, no guarding MUSCULOSKELETAL: head is normocephalic and atraumatic, moves extremities SKIN: warm and dry NEURO/PSYCH: awake, alert, cooperative, answers simple questions appropriately, speech fluent, moves extremities Results & Data Results & Data Vital Signs (Past 12 Hours) Vital Signs Temp Pulse Pulse Resp BP Pulse Ox O2 Del Method 08/30/23 08:53 36.3 C L 62 17 114/65 95 Room Air 08/30/23 07:00 36.4 C L 61 18 109/60 94 Room Air Laboratory Results 08/30/23 08/30/23 08/29/23 Range/Units 08:03 07:16 20:52 WBC 9.33 (4.8-10.8) K/ul RBC 3.11 L (4.20-5.40) M/uL Hgb 9.5 L (12.0-16.0) g/dl Hct 29.1 L (37.0-47.0) % MCV 93.6 (80.0-100.0) fL MCH 30.5 (25.0-34.0) pg MCHC 32.6 (32.0-36.0) g/dL RDW Std Deviation 56.1 H (36.4-46.3) fL RDW Coeff of Francisco Javier 16.9 H (11.5-14.5) % Plt Count 184 (130-400) K/uL MPV 10.2 (9.4-12.4) fL Absolute Nucleated RBC 0.02 (0.00-0.12) K/uL Nucleated RBC % (auto) 0.2 % Sodium 139 (136-145) mmol/L Potassium 4.2 (3.5-5.1) mmol/L Chloride 108 H (98-107) mmol/L Carbon Dioxide 23 (21-32) mmol/L Anion Gap 8 (3-11) BUN 51 H (6-23) mg/dl Creatinine 2.08 H (0.6-1.2) mg/dl Est Cr Clr Drug Dosing 20.8 ml/min Est GFR ( Amer) 24.9 ml/min Est GFR (Non-Af Amer) 21.5 ml/min BUN/Creatinine Ratio 24.5 H (10-20) Glucose 109 H (70-99(Fasting)) mg/dl POC Glucose 111 H 148 H (70-99) mg/dl Calcium 8.8 (8.6-10.3) mg/dl Phosphorus 4.0 (2.5-4.9) mg/dl Magnesium 1.8 (1.7-2.4) mg/dl Blood Type Antibody Screen Crossmatch 08/29/23 08/29/23 08/29/23 Range/Units 16:31 15:08 12:08 WBC (4.8-10.8) K/ul RBC (4.20-5.40) M/uL Hgb (12.0-16.0) g/dl Hct (37.0-47.0) % MCV (80.0-100.0) fL MCH (25.0-34.0) pg MCHC (32.0-36.0) g/dL RDW Std Deviation (36.4-46.3) fL RDW Coeff of Francisco Javier (11.5-14.5) % Plt Count (130-400) K/uL MPV (9.4-12.4) fL Absolute Nucleated RBC (0.00-0.12) K/uL Nucleated RBC % (auto) % Sodium (136-145) mmol/L Potassium (3.5-5.1) mmol/L Chloride (98-107) mmol/L Carbon Dioxide (21-32) mmol/L Anion Gap (3-11) BUN (6-23) mg/dl Creatinine (0.6-1.2) mg/dl Est Cr Clr Drug Dosing ml/min Est GFR ( Amer) ml/min Est GFR (Non-Af Amer) ml/min BUN/Creatinine Ratio (10-20) Glucose (70-99(Fasting)) mg/dl POC Glucose 130 H 116 H (70-99) mg/dl Calcium (8.6-10.3) mg/dl Phosphorus (2.5-4.9) mg/dl Magnesium (1.7-2.4) mg/dl Blood Type O Positive Antibody Screen NEGATIVE Crossmatch See Detail Medications Administered Current Inpatient Medications Acetaminophen (Acetaminophen 500 Mg Tab) 1,000 mg PO Q8H PRN PRN Reason: Pain or Fever Stop: 09/22/23 04:16 Al Hydrox/Mg Hydrox/Simethicone (Aluminum/Magnesium Susp 30 Ml Udc) 15 ml PO Q6H PRN PRN Reason: Indigestion Stop: 09/22/23 04:16 Allopurinol (Allopurinol 300 Mg Tab) 300 mg PO HS [facility] Stop: 09/22/23 20:59 Last Admin: 08/29/23 20:12 Dose: 300 mg Aspirin (Aspirin 81 Mg Ectab) [facility] Stop: 09/23/23 12:14 Last Admin: 08/30/23 08:41 Dose: 81 mg Atorvastatin Calcium (Atorvastatin 20 Mg Tab) 20 mg PO [facility] Stop: 09/22/23 08:59 Last Admin: 08/30/23 08:45 Dose: 20 mg Clopidogrel Bisulfate (Clopidogrel Bisulfate 75 Mg Tab) 75 mg PO [facility] Stop: 09/23/23 12:14 Last Admin: 08/30/23 08:42 Dose: 75 mg Cyanocobalamin (Cyanocobalamin (B-12) 100 Mcg Tablet) 100 mcg PO [facility] Stop: 09/22/23 08:59 Last Admin: 08/30/23 08:42 Dose: 100 mcg Dextrose (Dextrose 50% 50 Ml Syringe) 25 - 50 ml IV UD PRN; Protocol PRN Reason: Hypoglycemia Protocol Stop: 09/22/23 10:33 Ferrous Sulfate (Ferrous Sulfate 325 Mg Tab) 325 mg PO [facility] Stop: 09/22/23 08:59 Last Admin: 08/30/23 08:45 Dose: 325 mg Folic Acid (Folic Acid 1 Mg Tab) 1 mg PO [facility] Stop: 09/22/23 08:59 Last Admin: 08/30/23 08:43 Dose: 1 mg Glucagon (Glucagon For Inj 1 Mg Vial) 1 mg SQ UD PRN; Protocol PRN Reason: Hypoglycemia Protocol Stop: 09/22/23 10:33 Glucose (Glucose 10 Tab/Tube) 4 - 8 tab PO UD PRN; Protocol PRN Reason: Hypoglycemia Treatment Stop: 09/22/23 10:33 Glucose (Glucose 40% Gel 15 Gm Tube) 15 - 30 gm PO UD PRN; Protocol PRN Reason: Hypoglycemia Protocol Stop: 09/22/23 10:33 Iron Sucrose 200 mg/ Sodium (Chloride) 110 mls @ 220 mls/hr IV DAILY [facility] Stop: 08/31/23 09:29 Last Infusion: 08/30/23 09:57 Dose: Infused Insulin Aspart (Insulin Aspart Per Unit Charge) 0 units SC ACHS [facility] Stop: 09/22/23 11:29 Last Admin: 08/30/23 08:33 Dose: 3 units Levalbuterol HCl (Levalbuterol Tartrate 15 Gm Hfa.Aer.Ad) 1 puffs INH Q4 PRN PRN Reason: Shortness Of Breath Stop: 09/22/23 03:17 Levothyroxine Sodium (Levothyroxine Sodium 125 Mcg Tablet) 125 mcg PO DAILYBB [facility] Stop: 09/22/23 06:29 Last Admin: 08/30/23 06:28 Dose: 125 mcg Lorazepam (Lorazepam 1 Mg Tab) 1 mg PO HS PRN PRN Reason: sleep/anxiety Stop: 09/22/23 03:17 Last Admin: 08/23/23 21:43 Dose: 1 mg Miscellaneous (Carbohydrates For Hypoglycemia ) 15 - 30 gm PO UD PRN PRN Reason: Hypoglycemia Protocol Stop: 09/22/23 10:33 Montelukast Sodium (Montelukast Sodium 10 Mg Tablet) 10 mg PO PM [facility] Stop: 09/22/23 20:59 Last Admin: 08/29/23 20:12 Dose: 10 mg Pantoprazole Sodium (Pantoprazole 40 Mg Tab) 40 mg PO BID [facility] Stop: 09/22/23 20:59 Last Admin: 08/30/23 08:41 Dose: 40 mg Polyethylene Glycol (Polyethylene (Miralax) 17 Gm Pack) 17 gm PO DAILY PRN PRN Reason: Constipation Stop: 09/22/23 04:16 Sertraline HCl (Sertraline Hcl 50 Mg Tablet) 150 mg PO QAM [facility] Stop: 09/22/23 08:59 Last Admin: 08/30/23 08:42 Dose: 150 mg Sotalol HCl (Sotalol Hcl 80 Mg Tab) 40 mg PO DAILY [facility] Stop: 09/23/23 08:59 Last Admin: 08/30/23 08:55 Dose: 40 mg Torsemide (Torsemide 10 Mg Tab) 10 mg PO QAM [facility] Stop: 09/25/23 08:59 Last Admin: 08/30/23 08:44 Dose: 10 mg Umeclidinium/Vilanterol (Umeclidinium/Vilanterol 62.5/25mcg 7 Puffs/Inhaler) 1 puffs INH DAILY [facility] Stop: 09/22/23 08:59 Last Admin: 08/30/23 08:44 Dose: 1 puffs Vitamin D (Cholecalciferol 1,000 Units 25 Mcg Tab) 4,000 units PO QAM [facility] Stop: 09/22/23 08:59 Last Admin: 08/30/23 08:43 Dose: 4,000 units (4) CKD (chronic kidney disease) Chronic kidney disease stage: unspecified stage Qualified Code(s): N18.9 - Chronic kidney disease, unspecified (5) Anemia Iron deficiency anemia type: chronic blood loss
[2023-08-30] MEDS: MONTELUKAST SODIUM 10 MG TABLET PO SCH (21:13)
[2023-08-30] MEDS: allopurinoL 300 MG TAB PO SCH (21:14)
[2023-08-31] MEDS: LEVOTHYROXINE SODIUM 125 MCG TABLET PO SCH (06:08)
[2023-08-31 07:41] LABS: Hematocrit (blood only) 27.4 % (37.0-47.0); Hemoglobin 9.3 g/dl (12.0-16.0)
--- NOTE | 2023-08-31 07:42 | Hospitalist Progress Note ---
Date of Service August 31, 2023 Assessment & Plan (1) Generalized weakness: (2) S/P mitral valve clip implantation: (3) Presence of Watchman left atrial appendage closure device: (4) CKD (chronic kidney disease): (5) Anemia: (6) Depression: (7) Hypothyroidism: (8) SSS (sick sinus syndrome): Plan 82 yo F w/ hx of CAD, history of PAF, presence of Watchman device, chronic diastolic CHF, severe tricuspid regurg, pulm hypertension, history of mitral valve clip implantation, T2DM with CKD stage IIIb and retinopathy, secondary hyperparathyroidism, hypothyroidism, hyperlipidemia, RADHA, asthma, GERD, history of Mnire's disease, anemia, history of TIA, depression, history of endometrial cancer and recent admission for stroke workup, admitted once more with generalized weakness. 08/23-Stroke alert in AM, last known well of 8:50AM per nursing. Then noted slurred speech, slight facial droop, pt with headache, dizziness, heavy tongue and numbness Seen by telestroke neurologist from [place] who recommended STOP aspirin and plavix. Advised to Stop Plavix indefinitely, continue aspirin once stable. Low suspicion for stroke, symptoms more likely from acute blood loss (Hgb 6.5) requiring transfusion. CT head and neck images reviewed by telestroke neurologist, which showed no acute stroke, recommended repeating MRI brain (pt had one recently on 08/15) if pt had persistent symptoms post-transfusion. 08/31 Pt mentions that she had some tongue numbness last evening. She did not mention it to anybody, it resolved by itself. Will cont. to monitor and will discuss w/ neurology. Generalized Weakness Pt recently admitted and discharged on 08/15 after stroke work up Was seen by PT at that time who recommended home with family support. Was seen by her pcp with frequent falls at home, 2 within the last week Per son, has been having progressive lower extremity weakness that causes her to slip and fall--retrospectively this appears to be from anemia. Pt denies LOC Outpt labs done on 08/21 with noted Cr of 2.4, head CT with no acute changes, co ntinued sinus opacification EKG with noted paced rhythm, Echo from 08/15 with LVH, dilated atrium, EF 60- 65%, mild to moderate pulm HTN Hgb chronically low at baseline of approximately 8.5, dropped to 6.5 AM 08/23. Ordered to be transfused 2 Units UA with no signs of infection COVID test negative Chest xray notes cardiomegaly with pulm vascular congestion, chest CT confirms this-->restarted torsemide per home regimen. Electrolytes grossly within normal limits PT/OT orders placed once more for further evaluation-->rehab is recommended, awaiting bed at [facility] Anemia Hgb chronically decreased, normocytic at this time -at home on iron, folic acid and b12 supplementation Baseline ~8.5, dropped to 6.5 AM of 08/23 transfused 2 units pRBCs-no active bleeding Rule out hemolysis given recent mitral clip placement a couple of months ago Peripheral smear shows rare shistocytes and spherocytes, there are no dysplastic features and no circulating immature myeloid precursors or blasts seen. There are also occasional tear drop cells and where the anemia seen may be related to chronic disease, ruling out myelodysplastic syndrome is recommended. Some RBC destruction may be occurring from prosthetic heart clip. Would recommend following up with her brick wheeler (Dr. Hood) following this admission for further workup of these issues. Would recommend CBC every two weeks while on ASA/Plavix with preventive blood transfusions if needed to avoid hospitalization from symptomatic anemia again. GI eval - as outpt- recommending conservative management w/ EGD/EUS later this month as OP, consideration of repeat colonoscopy. Started IV iron per nephrology - as per review - pt has hx of iron deficiency anemia. Pt has 08/19 t sat 15% and ferritin 408 in EPIC; [facility] heme in 03/2023 attributed anemia to iron deficiency and CKD. Started IV iron load 200 mg IV daily x 5 days (EOT 08/31); may consider SIENNA after d/c Hgb 7.4 on 08/29/23 and discussed benefit of transfusing 1u prbcs given patient's complex comorbidities - Dr. Queen in agreement. Re-obtained consent as it was not on paper chart from earlier in admission. Blood consent was obtained from the patient as delegated by Dr. Natarajan. Risks and benefits were explained. All questions were answered, and the patient was offered the opportunity to discuss with attending physician and declined. Giving torsemide 20mg PO following transfusion Ok to finish IV iron 08/30 Hgb 9.5, will cont. to monitor 08/31 Hgb 9.3 Acute on Chronic Kidney disease Etiology of worsening renal function likely prerenal azotemia in the setting of acute anemia Nephrology consulted for further recs given worsening and persistent improved creatinine, which is close to her baseline at high 1s Chronic Sinusitis Noted on head imaging during last admission for stroke/TIA workup Noted once more on recent repeat head CT ordered by pcp Continued doxycycline, and finished 10 day course Due for outpt followup with ENT Pulmonary HTN Chest xray with noted pulmonary vascular congestion, cardiomegaly Echo with noted worsening pulm HTN Followup as outpatient PAF 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 Rivera-requires DAPT x 45 days. This was restarted 08/24 Cardiac pacemaker 2/2 SSS not on anticoagulation due to severe GIB in past Continue sotalol at reduced dosing per cardiology May ultimately need to discontinue this medication, however, she is poorly tolerant of atrial fibrillation in the past and there is no evidence of QT prolongation or rhythm concerns. Hypothyroidism TSH elevated, t4 wnl Continue home levothyroxine and repeat TFTs as outpatient when feeling better. T2DM diet controlled, last a1c 6.8 ISS RADHA O2 at HS HLD chronic,stable continue statin Diet: DMII DVT ppx: SCDs, no chemoprophy 2/2 hx of severe GIB in past DNR/DNI Dispo-to rehab Admission and Anticipated Discharge Date Admission Date: August 22, 2023 Subjective 83 yo admitted for leg weakness and falls, 2/2 anemia all initial symptoms are improved/resolved. Overall feeling better no chest pain, shortness of breath, no abd pain, n/v Hgb stable Also previously discussed w/ Dr. Chavarria (cardiology) - need for ASA + plavix. Need for outpt hematology follow up (pt follows w/ Dr. Hood). Says she feels well, but last evening had some numbness of her tongue. She did not mention it to anybody and then it resolved. Review of Systems Review of Systems: All systems reviewed & are unremarkable except as noted in Subjective Physical Exam Physical Exam: CONSTITUTIONAL: WNWD, F in NAD EYES: normal conjunctivae, no scleral icterus ENT: external ear and nose normal, MMM NECK: supple RESPIRATORY: clear to auscultation bilaterally, no crackles, rales or wheezes, normal respiratory effort CARDIOVASCULAR: regular rate and rhythm, S1 and 2 heard without murmurs CHEST: inspection of chest is normal GASTROINTESTINAL: soft, nontender, ND, no guarding MUSCULOSKELETAL: head is normocephalic and atraumatic, moves extremities SKIN: warm and dry NEURO/PSYCH: awake, alert, cooperative, answers simple questions appropriately, speech fluent, moves extremities Results & Data Results & Data Vital Signs (Past 12 Hours) Vital Signs Temp Pulse Resp BP Pulse Ox O2 Del Method 08/30/23 21:52 36.5 C 61 18 131/70 95 Room Air (4) CKD (chronic kidney disease) Chronic kidney disease stage: unspecified stage Qualified Code(s): N18.9 - Chronic kidney disease, unspecified (5) Anemia Iron deficiency anemia type: chronic blood loss
[2023-08-31 07:56] LABS: BUN Creatinine Ratio 26.8 (10-20); Calcium 8.8 mg/dl (8.6-10.3); Creatinine Clr Calc Pharmacy 21.1 ml/min; Est GFR (African American) 25.3 ml/min; Est GFR (Non-African American) 21.9 ml/min; Phosphorus 3.8 mg/dl (2.5-4.9); Potassium 4.3 mmol/L (3.5-5.1)
[2023-08-31] MEDS: INSULIN ASPART PER UNIT CHARGE SC SCH ×4 (09:03→21:57)
[2023-08-31] MEDS: IRON SUCROSE 200 MG in 0.9 % SODIUM CHLORIDE 100 ML IV SCH (09:21)
[2023-08-31] MEDS: PANTOprazole 40 MG TAB PO SCH ×2 (09:32→21:48)
[2023-08-31] MEDS: SERTRALINE HCL 50 MG TABLET PO SCH (09:33)
[2023-08-31] MEDS: ATORVASTATIN 20 MG TAB PO SCH (09:33)
[2023-08-31] MEDS: ASPIRIN 81 MG ECTAB PO SCH (09:33)
[2023-08-31] MEDS: TORSEMIDE 10 MG TAB PO SCH (09:34)
[2023-08-31] MEDS: SOTALOL HCL 80 MG TAB PO SCH (09:34)
[2023-08-31] MEDS: CHOLECALCIFEROL 1,000 UNITS 25 MCG TAB PO SCH (09:34)
[2023-08-31] MEDS: CLOPIDOGREL BISULFATE 75 MG TAB PO SCH (09:35)
[2023-08-31] MEDS: FOLIC ACID 1 MG TAB PO SCH (09:35)
[2023-08-31] MEDS: FERROUS SULFATE 325 MG TAB PO SCH (09:35)
[2023-08-31] MEDS: CYANOCOBALAMIN (B-12) 100 MCG TABLET PO SCH (09:35)
[2023-08-31] MEDS: UMECLIDINIUM/VILANTEROL 62.5/25MCG 7 PUFFS/INHALER INH SCH (10:13)
[2023-08-31] MEDS: MONTELUKAST SODIUM 10 MG TABLET PO SCH (21:48)
[2023-08-31] MEDS: allopurinoL 300 MG TAB PO SCH (21:48)
[2023-09-01] MEDS: LEVOTHYROXINE SODIUM 125 MCG TABLET PO SCH (05:33)
[2023-09-01] MEDS: SOTALOL HCL 80 MG TAB PO SCH (08:14)
[2023-09-01] MEDS: FERROUS SULFATE 325 MG TAB PO SCH (08:14)
[2023-09-01] MEDS: ASPIRIN 81 MG ECTAB PO SCH (08:14)
[2023-09-01] MEDS: CLOPIDOGREL BISULFATE 75 MG TAB PO SCH (08:14)
[2023-09-01] MEDS: CYANOCOBALAMIN (B-12) 100 MCG TABLET PO SCH (08:14)
[2023-09-01] MEDS: FOLIC ACID 1 MG TAB PO SCH (08:14)
[2023-09-01] MEDS: ATORVASTATIN 20 MG TAB PO SCH (08:14)
[2023-09-01] MEDS: SERTRALINE HCL 50 MG TABLET PO SCH (08:14)
[2023-09-01] MEDS: PANTOprazole 40 MG TAB PO SCH ×2 (08:14→19:59)
[2023-09-01] MEDS: CHOLECALCIFEROL 1,000 UNITS 25 MCG TAB PO SCH (08:14)
[2023-09-01] MEDS: UMECLIDINIUM/VILANTEROL 62.5/25MCG 7 PUFFS/INHALER INH SCH (08:15)
[2023-09-01] MEDS: TORSEMIDE 10 MG TAB PO SCH (08:15)
[2023-09-01] MEDS: INSULIN ASPART PER UNIT CHARGE SC SCH ×4 (09:08→21:38)
[2023-09-01 09:40] LABS: Hematocrit (blood only) 31.9 % (37.0-47.0); Hemoglobin 10.2 g/dl (12.0-16.0)
[2023-09-01] MEDS: COUGH DROP (SUGAR FREE) LOZ 24 LOZ/1 BOX BUCCAL SCH ×6 (10:58→22:00)
--- NOTE | 2023-09-01 15:55 | Hospitalist Progress Note ---
Date of Service September 01, 2023 Assessment & Plan (1) Generalized weakness: (2) S/P mitral valve clip implantation: (3) Presence of Watchman left atrial appendage closure device: (4) CKD (chronic kidney disease): (5) Anemia: (6) Depression: (7) Hypothyroidism: (8) SSS (sick sinus syndrome): Plan 82 yo F w/ hx of CAD, history of PAF, presence of Watchman device, chronic diastolic CHF, severe tricuspid regurg, pulm hypertension, history of mitral valve clip implantation, T2DM with CKD stage IIIb and retinopathy, secondary hyperparathyroidism, hypothyroidism, hyperlipidemia, RADHA, asthma, GERD, history of Mnire's disease, anemia, history of TIA, depression, history of endometrial cancer and recent admission for stroke workup, admitted once more with generalized weakness. 08/23-Stroke alert in AM, last known well of 8:50AM per nursing. Then noted slurred speech, slight facial droop, pt with headache, dizziness, heavy tongue and numbness Seen by telestroke neurologist from [facility] who recommended STOP aspirin and plavix. Advised to Stop Plavix indefinitely, continue aspirin once stable. Low suspicion for stroke, symptoms more likely from acute blood loss (Hgb 6.5) requiring transfusion. CT head and neck images reviewed by telestroke neurologist, which showed no acute stroke, recommended repeating MRI brain (pt had one recently on 08/15) if pt had persistent symptoms post-transfusion. 08/31 Pt mentions that she had some tongue numbness last evening. She did not mention it to anybody, it resolved by itself. Will cont. to monitor and will discuss w/ neurology. 09/01 says she has numbness feeling of her tongue on and off. she thinks it's from having dry mouth. lozenges ordered. And discussed w/ neurology - they do not believe pt needs any imaging or further neuro work-up Generalized Weakness Pt recently admitted and discharged on 08/15 after stroke work up Was seen by PT at that time who recommended home with family support. Was seen by her pcp with frequent falls at home, 2 within the last week Per son, has been having progressive lower extremity weakness that causes her to slip and fall--retrospectively this appears to be from anemia. Pt denies LOC Outpt labs done on 08/21 with noted Cr of 2.4, head CT with no acute changes, continued sinus opacification EKG with noted paced rhythm, Echo from 08/15 with LVH, dilated atrium, EF 60- 65%, mild to moderate pulm HTN Hgb chronically low at baseline of approximately 8.5, dropped to 6.5 AM 08/23. Ordered to be transfused 2 Units UA with no signs of infection COVID test negative Chest xray notes cardiomegaly with pulm vascular congestion, chest CT confirms this-->restarted torsemide per home regimen. Electrolytes grossly within normal limits PT/OT orders placed once more for further evaluation-->rehab is recommended, awaiting bed at [facility] Anemia Hgb chronically decreased, normocytic at this time -at home on iron, folic acid and b12 supplementation Baseline ~8.5, dropped to 6.5 AM of 08/23 transfused 2 units pRBCs-no active bleeding Rule out hemolysis given recent mitral clip placement a couple of months ago Peripheral smear shows rare shistocytes and spherocytes, there are no dysplastic features and no circulating immature myeloid precursors or blasts seen. There are also occasional tear drop cells and where the anemia seen may be related to chronic disease, ruling out myelodysplastic syndrome is recommended. Some RBC destruction may be occurring from prosthetic heart clip. Would recommend following up with her operations and maintenance manager (Dr. Hood) following this admission for further workup of these issues. Would recommend CBC every two weeks while on ASA/Plavix with preventive blood transfusions if needed to avoid hospitalization from symptomatic anemia again. GI eval - as outpt- recommending conservative management w/ EGD/EUS later this month as OP, consideration of repeat colonoscopy. Started IV iron per nephrology - as per review - pt has hx of iron deficiency anemia. Pt has 08/19 t sat 15% and ferritin 408 in EPIC; [facility] heme in 03/2023 attributed anemia to iron deficiency and CKD. Started IV iron load 200 mg IV daily x 5 days (EOT 08/31); may consider SIENNA after d/c Hgb 7.4 on 08/29/23 and discussed benefit of transfusing 1u prbcs given patient's complex comorbidities - Dr. Queen in agreement. Re-obtained consent as it was not on paper chart from earlier in admission. Blood consent was obtained from the patient as delegated by Dr. Natarajan. Risks and benefits were explained. All questions were answered, and the patient was off ered the opportunity to discuss with attending physician and declined. Giving torsemide 20mg PO following transfusion Ok to finish IV iron 08/30 Hgb 9.5, will cont. to monitor 08/31 Hgb 9.3 09/01 Hgb 10.2 Acute on Chronic Kidney disease Etiology of worsening renal function likely prerenal azotemia in the setting of acute anemia Nephrology consulted for further recs given worsening and persistent improved creatinine, which is close to her baseline at high 1s Chronic Sinusitis Noted on head imaging during last admission for stroke/TIA workup Noted once more on recent repeat head CT ordered by pcp Continued doxycycline, and finished 10 day course Due for outpt followup with ENT Pulmonary HTN Chest xray with noted pulmonary vascular congestion, cardiomegaly Echo with noted worsening pulm HTN Followup as outpatient PAF 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 Rivera-requires DAPT x 45 days. This was restarted 08/24 Cardiac pacemaker 2/2 SSS not on anticoagulation due to severe GIB in past Continue sotalol at reduced dosing per cardiology May ultimately need to discontinue this medication, however, she is poorly tolerant of atrial fibrillation in the past and there is no evidence of QT prolongation or rhythm concerns. Hypothyroidism TSH elevated, t4 wnl Continue home levothyroxine and repeat TFTs as outpatient when feeling better. T2DM diet controlled, last a1c 6.8 ISS RADHA O2 at HS HLD chronic,stable continue statin Diet: DMII DVT ppx: SCDs, no chemoprophy 2/2 hx of severe GIB in past DNR/DNI Dispo-to rehab Admission and Anticipated Discharge Date Admission Date: August 22, 2023 Subjective 83 yo admitted for leg weakness and falls, 2/2 anemia Overall feeling better no chest pain, shortness of breath, no abd pain, n/v Hgb stable Previously discussed w/ Dr. Chavarria (cardiology) - need for ASA + plavix. Need for outpt hematology follow up (pt follows w/ Dr. Hood). Says she feels well, but having some numbness of her tongue on and off. She tells me that she thinks it's from dry mouth and it helps when she drinks. Discussed w/ neurology - they do not recommend any further imaging / neuro work- up. Review of Systems Review of Systems: All systems reviewed & are unremarkable except as noted in Subjective Physical Exam Physical Exam: CONSTITUTIONAL: WNWD, F in NAD EYES: normal conjunctivae, no scleral icterus ENT: external ear and nose normal, MMM NECK: supple RESPIRATORY: clear to auscultation bilaterally, no crackles, rales or wheezes, normal respiratory effort CARDIOVASCULAR: regular rate and rhythm, S1 and 2 heard without murmurs CHEST: inspection of chest is normal GASTROINTESTINAL: soft, nontender, ND, no guarding MUSCULOSKELETAL: head is normocephalic and atraumatic, moves extremities SKIN: warm and dry NEURO/PSYCH: awake, alert, cooperative, answers simple questions appropriately, speech fluent, moves extremities Results & Data Results & Data Vital Signs (Past 12 Hours) Vital Signs Temp Pulse Pulse Resp BP BP Pulse Ox 09/01/23 14:22 36.5 C 69 17 108/56 L 94 09/01/23 12:05 36.2 C L 60 17 122/60 98 09/01/23 07:40 36.2 C L 64 17 124/61 96 09/01/23 07:16 36.5 C 65 17 105/63 96 O2 Del Method 09/01/23 14:22 Room Air 09/01/23 12:05 Room Air 09/01/23 07:40 Room Air 09/01/23 07:16 Room Air Laboratory Results 09/01/23 09/01/23 09/01/23 Range/Units 11:42 09:03 07:21 Hgb 10.2 L (12.0-16.0) g/dl Hct 31.9 L (37.0-47.0) % POC Glucose 103 H 106 H (70-99) mg/dl 08/31/23 08/31/23 Range/Units 20:43 16:41 Hgb (12.0-16.0) g/dl Hct (37.0-47.0) % POC Glucose 136 H 122 H (70-99) mg/dl Medications Administered Current Inpatient Medications Acetaminophen (Acetaminophen 500 Mg Tab) 1,000 mg PO Q8H PRN PRN Reason: Pain or Fever Stop: 09/22/23 04:16 Al Hydrox/Mg Hydrox/Simethicone (Aluminum/Magnesium Susp 30 Ml Udc) 15 ml PO Q6H PRN PRN Reason: Indigestion Stop: 09/22/23 04:16 Allopurinol (Allopurinol 300 Mg Tab) 300 mg PO HS [facility] Stop: 09/22/23 20:59 Last Admin: 08/31/23 21:48 Dose: 300 mg Aspirin (Aspirin 81 Mg Ectab) 81 mg PO [facility] Stop: 09/23/23 12:14 Last Admin: 09/01/23 08:14 Dose: 81 mg Atorvastatin Calcium (Atorvastatin 20 Mg Tab) 20 mg PO [facility] Stop: 09/22/23 08:59 Last Admin: 09/01/23 08:14 Dose: 20 mg Clopidogrel Bisulfate (Clopidogrel Bisulfate 75 Mg Tab) 75 mg PO [facility] Stop: 09/23/23 12:14 Last Admin: 09/01/23 08:14 Dose: 75 mg Cyanocobalamin (Cyanocobalamin (B-12) 100 Mcg Tablet) 100 mcg PO [facility] Stop: 09/22/23 08:59 Last Admin: 09/01/23 08:14 Dose: 100 mcg Dextrose (Dextrose 50% 50 Ml Syringe) 25 - 50 ml IV UD PRN; Protocol PRN Reason: Hypoglycemia Protocol Stop: 09/22/23 10:33 Ferrous Sulfate (Ferrous Sulfate 325 Mg Tab) 325 mg PO [facility] Stop: 09/22/23 08:59 Last Admin: 09/01/23 08:14 Dose: 325 mg Folic Acid (Folic Acid 1 Mg Tab) 1 mg PO [facility] Stop: 09/22/23 08:59 Last Admin: 09/01/23 08:14 Dose: 1 mg Glucagon (Glucagon For Inj 1 Mg Vial) 1 mg SQ UD PRN; Protocol PRN Reason: Hypoglycemia Protocol Stop: 09/22/23 10:33 Glucose (Glucose 10 Tab/Tube) 4 - 8 tab PO UD PRN; Protocol PRN Reason: Hypoglycemia Treatment Stop: 09/22/23 10:33 Glucose (Glucose 40% Gel 15 Gm Tube) 15 - 30 gm PO UD PRN; Protocol PRN Reason: Hypoglycemia Protocol Stop: 09/22/23 10:33 Insulin Aspart (Insulin Aspart Per Unit Charge) 0 units SC [facility] Stop: 09/22/23 11:29 Last Admin: 09/01/23 12:33 Dose: 3 units Levalbuterol HCl (Levalbuterol Tartrate 15 Gm Hfa.Aer.Ad) 1 puffs INH Q4 PRN PRN Reason: Shortness Of Breath Stop: 09/22/23 03:17 Levothyroxine Sodium (Levothyroxine Sodium 125 Mcg Tablet) 125 mcg PO DAILYBB [facility] Stop: 09/22/23 06:29 Last Admin: 09/01/23 05:33 Dose: 125 mcg Lorazepam (Lorazepam 1 Mg Tab) 1 mg PO HS PRN PRN Reason: sleep/anxiety Stop: 09/22/23 03:17 Last Admin: 08/23/23 21:43 Dose: 1 mg Menthol (Cough Drop (Sugar Free) Siomara 24 Siomara/1 Box) 1 siomara BUCCAL Q2H [facility] Stop: 10/01/23 10:29 Last Admin: 09/01/23 15:05 Dose: Not Given Miscellaneous (Carbohydrates For Hypoglycemia ) 15 - 30 gm PO UD PRN PRN Reason: Hypoglycemia Protocol Stop: 09/22/23 10:33 Montelukast Sodium (Montelukast Sodium 10 Mg Tablet) 10 mg PO PM [facility] Stop: 09/22/23 20:59 Last Admin: 08/31/23 21:48 Dose: 10 mg Pantoprazole Sodium (Pantoprazole 40 Mg Tab) 40 mg PO BID [facility] Stop: 09/22/23 20:59 Last Admin: 09/01/23 08:14 Dose: 40 mg Polyethylene Glycol (Polyethylene (Miralax) 17 Gm Pack) 17 gm PO DAILY PRN PRN Reason: Constipation Stop: 09/22/23 04:16 Sertraline HCl (Sertraline Hcl 50 Mg Tablet) 150 mg PO QAM [facility] Stop: 09/22/23 08:59 Last Admin: 09/01/23 08:14 Dose: 150 mg Sotalol HCl (Sotalol Hcl 80 Mg Tab) 40 mg PO DAILY [facility] Stop: 09/23/23 08:59 Last Admin: 09/01/23 08:14 Dose: 40 mg Torsemide (Torsemide 10 Mg Tab) 10 mg PO QAM [facility] Stop: 09/25/23 08:59 Last Admin: 09/01/23 08:15 Dose: 10 mg Umeclidinium/Vilanterol (Umeclidinium/Vilanterol 62.5/25mcg 7 Puffs/Inhaler) 1 puffs INH DAILY [facility] Stop: 09/22/23 08:59 Last Admin: 09/01/23 08:15 Dose: 1 puffs Vitamin D (Cholecalciferol 1,000 Units 25 Mcg Tab) 4,000 units PO QAM [facility] Stop: 09/22/23 08:59 Last Admin: 09/01/23 08:14 Dose: 4,000 units (4) CKD (chronic kidney disease) Chronic kidney disease stage: unspecified stage Qualified Code(s): N18.9 - Chronic kidney disease, unspecified (5) Anemia Iron deficiency anemia type: chronic blood loss
[2023-09-01] MEDS: allopurinoL 300 MG TAB PO SCH (19:58)
[2023-09-01] MEDS: MONTELUKAST SODIUM 10 MG TABLET PO SCH (19:59)
[2023-09-01] MEDS ORDERED: COUGH DROP (SUGAR FREE) LOZ 24 LOZ/1 BOX BUCCAL PRN (22:25)
[2023-09-02] MEDS: LEVOTHYROXINE SODIUM 125 MCG TABLET PO SCH (05:21)
[2023-09-02] MEDS: INSULIN ASPART PER UNIT CHARGE SC SCH ×4 (09:07→20:30)
[2023-09-02] MEDS: UMECLIDINIUM/VILANTEROL 62.5/25MCG 7 PUFFS/INHALER INH SCH (09:08)
[2023-09-02] MEDS: SOTALOL HCL 80 MG TAB PO SCH (09:11)
[2023-09-02] MEDS: CHOLECALCIFEROL 1,000 UNITS 25 MCG TAB PO SCH (09:11)
[2023-09-02] MEDS: PANTOprazole 40 MG TAB PO SCH ×2 (09:11→20:32)
[2023-09-02] MEDS: ATORVASTATIN 20 MG TAB PO SCH (09:12)
[2023-09-02] MEDS: FOLIC ACID 1 MG TAB PO SCH (09:12)
[2023-09-02] MEDS: CLOPIDOGREL BISULFATE 75 MG TAB PO SCH (09:12)
[2023-09-02] MEDS: ASPIRIN 81 MG ECTAB PO SCH (09:12)
[2023-09-02] MEDS: TORSEMIDE 10 MG TAB PO SCH (09:12)
[2023-09-02] MEDS: FERROUS SULFATE 325 MG TAB PO SCH (09:13)
[2023-09-02] MEDS: SERTRALINE HCL 50 MG TABLET PO SCH (09:13)
[2023-09-02] MEDS: CYANOCOBALAMIN (B-12) 100 MCG TABLET PO SCH (09:13)
--- NOTE | 2023-09-02 14:31 | Hospitalist Progress Note ---
Date of Service September 02, 2023 Assessment & Plan (1) Generalized weakness: (2) S/P mitral valve clip implantation: (3) Presence of Watchman left atrial appendage closure device: (4) CKD (chronic kidney disease): (5) Anemia: (6) Depression: (7) Hypothyroidism: (8) SSS (sick sinus syndrome): Plan 82 yo F w/ hx of CAD, history of PAF, presence of Watchman device, chronic diastolic CHF, severe tricuspid regurg, pulm hypertension, history of mitral valve clip implantation, T2DM with CKD stage IIIb and retinopathy, secondary hyperparathyroidism, hypothyroidism, hyperlipidemia, RADHA, asthma, GERD, history of Mnire's disease, anemia, history of TIA, depression, history of endometrial cancer and recent admission for stroke workup, admitted once more with generalized weakness. 08/23-Stroke alert in AM, last known well of 8:50AM per nursing. Then noted slurred speech, slight facial droop, pt with headache, dizziness, heavy tongue and numbness Seen by telestroke neurologist from [facility] who recommended STOP aspirin and plavix. Advised to Stop Plavix indefinitely, continue aspirin once stable. Low suspicion for stroke, symptoms more likely from acute blood loss (Hgb 6.5) requiring transfusion. CT head and neck images reviewed by telestroke neurologist, which showed no acute stroke, recommended repeating MRI brain (pt had one recently on 08/15) if pt had persistent symptoms post-transfusion. 08/31 Pt mentions that she had some tongue numbness last evening. She did not mention it to anybody, it resolved by itself. Will cont. to monitor and will discuss w/ neurology. 09/01 says she has numbness feeling of her tongue on and off. she thinks it's from having dry mouth. lozenges ordered. And discussed w/ neurology - they do not believe pt needs any imaging or further neuro work-up Generalized Weakness Pt recently admitted and discharged on 08/15 after stroke work up Was seen by PT at that time who recommended home with family support. Was seen by her pcp with frequent falls at home, 2 within the last week Per son, has been having progressive lower extremity weakness that causes her to slip and fall--retrospectively this appears to be from anemia. Pt denies LOC Outpt labs done on 08/21 with noted Cr of 2.4, head CT with no acute changes, continued sinus opacification EKG with noted paced rhythm, Echo from 08/15 with LVH, dilated atrium, EF 60- 65%, mild to moderate pulm HTN Hgb chronically low at baseline of approximately 8.5, dropped to 6.5 AM 08/23. Ordered to be transfused 2 Units UA with no signs of infection COVID test negative Chest xray notes cardiomegaly with pulm vascular congestion, chest CT confirms this-->restarted torsemide per home regimen. Electrolytes grossly within normal limits PT/OT orders placed once more for further evaluation-->rehab is recommended, awaiting bed at [facility] Anemia Hgb chronically decreased, normocytic at this time -at home on iron, folic acid and b12 supplementation Baseline ~8.5, dropped to 6.5 AM of 08/23 transfused 2 units pRBCs-no active bleeding Rule out hemolysis given recent mitral clip placement a couple of months ago Peripheral smear shows rare shistocytes and spherocytes, there are no dysplastic features and no circulating immature myeloid precursors or blasts seen. There are also occasional tear drop cells and where the anemia seen may be related to chronic disease, ruling out myelodysplastic syndrome is recommended. Some RBC destruction may be occurring from prosthetic heart clip. Would recommend following up with her knife finisher (Dr. Hood) following this admission for further workup of these issues. Would recommend CBC every two weeks while on ASA/Plavix with preventive blood transfusions if needed to avoid hospitalization from symptomatic anemia again. GI eval - as outpt- recommending conservative management w/ EGD/EUS later this month as OP, consideration of repeat colonoscopy. Started IV iron per nephrology - as per review - pt has hx of iron deficiency anemia. Pt has 08/19 t sat 15% and ferritin 408 in EPIC; [facility] heme in 03/2023 attributed anemia to iron deficiency and CKD. Started IV iron load 200 mg IV daily x 5 days (EOT 08/31); may consider SIENNA after d/c Hgb 7.4 on 08/29/23 1 unit prbc 08/30 Hgb 9.5, will cont. to monitor 08/31 Hgb 9.3 09/01 Hgb 10.2 Acute on Chronic Kidney disease Etiology of worsening renal function likely prerenal azotemia in the setting of acute anemia Nephrology consulted for further recs given worsening and persistent improved creatinine, which is close to her baseline at high 1s Chronic Sinusitis Noted on head imaging during last admission for stroke/TIA workup Noted once more on recent repeat head CT ordered by pcp Continued doxycycline, and finished 10 day course Due for outpt followup with ENT Pulmonary HTN Chest xray with noted pulmonary vascular congestion, cardiomegaly Echo with noted worsening pulm HTN Followup as outpatient PAF 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 Rivera-requires DAPT x 45 days. This was restarted 08/24 Cardiac pacemaker 2/2 SSS not on anticoagulation due to severe GIB in past Continue sotalol at reduced dosing per cardiology May ultimately need to discontinue this medication, however, she is poorly tolerant of atrial fibrillation in the past and there is no evidence of QT prolongation or rhythm concerns. Hypothyroidism TSH elevated, t4 wnl Continue home levothyroxine and repeat TFTs as outpatient when feeling better. T2DM diet controlled, last a1c 6.8 ISS RADHA O2 at HS HLD chronic,stable continue statin Diet: DMII DVT ppx: SCDs, no chemoprophy 2/2 hx of severe GIB in past DNR/DNI Dispo-to rehab when bed available pt was seen and examined in collaboration with Dr. Natarajan, please see addendum A total of 47 was spent coordinating, documenting, and providing care for this patient excluding time spent in the performance of separately billed services. This included personally viewing all current laboratories and imaging studies, medication reconciliation, outpatient chart review, and discussion with specialists. CBC, CMP in a.m. Admission and Anticipated Discharge Date Admission Date: August 22, 2023 Supervising Physician Co-Signing Physician Notes Pt seen and examined by me, care coordinated w/ Festus Bridges PA-C, pls refer to her note above for further detail. Pt is currently sitting up in bed in [facility], playing on her ipad. Denies any chest pain, increased shortness of breath, abd. pain, n/v. Pt's at the [facility]. Pt is awake, alert, able to answer simple questions appropriately. Lungs are CTAB, heart sounds rrr, abdomen soft and nontender. Awaiting placement at rehab. MD Rosa Isela Subjective Pt seen and evaluated in room 375-1. Follow up weakness/anemia. Pt is hoping for a bed at [facility] today. Denies f/c/s, chest pain, sob, n/v/d. Good appetite. Review of Systems Review of Systems: All systems reviewed & are unremarkable except as noted in HPI & below Physical Exam Physical Exam: Gen: WD/WN, NAD, A&O x3 HEENT: Normocephalic, atraumatic, conjunctivae moist, sclerae anicteric, mucous membranes moist. Lung: Clear to Auscultation bilaterally, no wheezes/rales/rhonchi Heart: Regular rate, regular rhythm, no murmurs, rubs, or gallops Abdomen: Soft, NT, ND +BS x 4 Extremities: No edema Skin: Warm, no rash, negative turgor. Results & Data Results & Data Vital Signs (Past 12 Hours) Vital Signs Temp Pulse Resp BP Pulse Ox O2 Del Method 09/02/23 14:11 36.3 C L 71 18 120/57 L 98 Room Air 09/02/23 07:12 36.4 C L 64 16 126/65 96 Room Air Medications Administered Current Inpatient Medications Acetaminophen (Acetaminophen 500 Mg Tab) 1,000 mg PO Q8H PRN PRN Reason: Pain or Fever Stop: 09/22/23 04:16 Al Hydrox/Mg Hydrox/Simethicone (Aluminum/Magnesium Susp 30 Ml Udc) 15 ml PO Q6H PRN PRN Reason: Indigestion Stop: 09/22/23 04:16 Allopurinol (Allopurinol 300 Mg Tab) 300 mg PO [facility] Stop: 09/22/23 20:59 Last Admin: 09/01/23 19:58 Dose: 300 mg Aspirin (Aspirin 81 Mg Ectab) 81 mg PO [facility] Stop: 09/23/23 12:14 Last Admin: 09/02/23 09:12 Dose: 81 mg Atorvastatin Calcium (Atorvastatin 20 Mg Tab) 20 mg PO [facility] Stop: 09/22/23 08:59 Last Admin: 09/02/23 09:12 Dose: 20 mg Clopidogrel Bisulfate (Clopidogrel Bisulfate 75 Mg Tab) 75 mg PO [facility] Stop: 09/23/23 12:14 Last Admin: 09/02/23 09:12 Dose: 75 mg Cyanocobalamin (Cyanocobalamin (B-12) 100 Mcg Tablet) 100 mcg PO [facility] Stop: 09/22/23 08:59 Last Admin: 09/02/23 09:13 Dose: 100 mcg Dextrose (Dextrose 50% 50 Ml Syringe) 25 - 50 ml IV UD PRN; Protocol PRN Reason: Hypoglycemia Protocol Stop: 09/22/23 10:33 Ferrous Sulfate (Ferrous Sulfate 325 Mg Tab) 325 mg PO QAM [facility] Stop: 09/22/23 08:59 Last Admin: 09/02/23 09:13 Dose: 325 mg Folic Acid (Folic Acid 1 Mg Tab) 1 mg PO QAM [facility] Stop: 09/22/23 08:59 Last Admin: 09/02/23 09:12 Dose: 1 mg Glucagon (Glucagon For Inj 1 Mg Vial) 1 mg SQ UD PRN; Protocol PRN Reason: Hypoglycemia Protocol Stop: 09/22/23 10:33 Glucose (Glucose 10 Tab/Tube) 4 - 8 tab PO UD PRN; Protocol PRN Reason: Hypoglycemia Treatment Stop: 09/22/23 10:33 Glucose (Glucose 40% Gel 15 Gm Tube) 15 - 30 gm PO UD PRN; Protocol PRN Reason: Hypoglycemia Protocol Stop: 09/22/23 10:33 Insulin Aspart (Insulin Aspart Per Unit Charge) 0 units SC [facility] Stop: 09/22/23 11:29 Last Admin: 09/02/23 13:25 Dose: 1 units Levalbuterol HCl (Levalbuterol Tartrate 15 Gm Hfa.Aer.Ad) 1 puffs INH Q4 PRN PRN Reason: Shortness Of Breath Stop: 09/22/23 03:17 Levothyroxine Sodium (Levothyroxine Sodium 125 Mcg Tablet) 125 mcg PO DAILYBB [facility] Stop: 09/22/23 06:29 Last Admin: 09/02/23 05:21 Dose: 125 mcg Lorazepam (Lorazepam 1 Mg Tab) 1 mg PO HS PRN PRN Reason: sleep/anxiety Stop: 09/22/23 03:17 Last Admin: 08/23/23 21:43 Dose: 1 mg Menthol (Cough Drop (Sugar Free) Siomara 24 Siomara/1 Box) 1 siomara BUCCAL Q2H PRN PRN Reason: Sore Throat Stop: 10/01/23 10:29 Miscellaneous (Carbohydrates For Hypoglycemia ) 15 - 30 gm PO UD PRN PRN Reason: Hypoglycemia Protocol Stop: 09/22/23 10:33 Montelukast Sodium (Montelukast Sodium 10 Mg Tablet) 10 mg PO PM [facility] Stop: 09/22/23 20:59 Last Admin: 09/01/23 19:59 Dose: 10 mg Pantoprazole Sodium (Pantoprazole 40 Mg Tab) 40 mg PO BID [facility] Stop: 09/22/23 20:59 Last Admin: 09/02/23 09:11 Dose: 40 mg Polyethylene Glycol (Polyethylene (Miralax) 17 Gm Pack) 17 gm PO DAILY PRN PRN Reason: Constipation Stop: 09/22/23 04:16 Sertraline HCl (Sertraline Hcl 50 Mg Tablet) 150 mg PO QAM [facility] Stop: 09/22/23 08:59 Last Admin: 09/02/23 09:13 Dose: 150 mg Sotalol HCl (Sotalol Hcl 80 Mg Tab) 40 mg PO DAILY [facility] Stop: 09/23/23 08:59 Last Admin: 09/02/23 09:11 Dose: 40 mg Torsemide (Torsemide 10 Mg Tab) 10 mg PO QAM [facility] Stop: 09/25/23 08:59 Last Admin: 09/02/23 09:12 Dose: 10 mg Umeclidinium/Vilanterol (Umeclidinium/Vilanterol 62.5/25mcg 7 Puffs/Inhaler) 1 puffs INH DAILY [facility] Stop: 09/22/23 08:59 Last Admin: 09/02/23 09:08 Dose: 1 puffs Vitamin D (Cholecalciferol 1,000 Units 25 Mcg Tab) 4,000 units PO QAM [facility] Stop: 09/22/23 08:59 Last Admin: 09/02/23 09:11 Dose: 4,000 units (4) CKD (chronic kidney disease) Chronic kidney disease stage: unspecified stage Qualified Code(s): N18.9 - Chronic kidney disease, unspecified (5) Anemia Iron deficiency anemia type: chronic blood loss
[2023-09-02] MEDS: allopurinoL 300 MG TAB PO SCH (20:32)
[2023-09-02] MEDS: MONTELUKAST SODIUM 10 MG TABLET PO SCH (20:32)
[2023-09-03] MEDS: LEVOTHYROXINE SODIUM 125 MCG TABLET PO SCH (06:01)
[2023-09-03 07:12] LABS: Basophils # (auto) 0.04 K/uL (0.00-0.20); Basophils % (auto) 0.5 %; Eosinophils % (auto) 6.2 %; Hemoglobin 9.7 g/dl (12.0-16.0); Immature Granulocytes # (auto) 0.05 K/uL (0.01-0.20); Immature Granulocytes % (auto) 0.6 %; Lymphocytes # (auto) 0.94 K/uL (1.20-3.40); Lymphocytes % (auto) 11.6 %; Mean Corpuscular Hemoglobin 30.5 pg (25.0-34.0); Mean Corpuscular Hgb Conc 32.3 g/dL (32.0-36.0); Mean Corpuscular Volume 94.3 fL (80.0-100.0); Mean Platelet Volume 10.7 fL (9.4-12.4); Monocytes # (auto) 0.92 K/uL (0.11-0.59); Monocytes % (auto) 11.4 %; Neutrophils # (auto) 5.62 K/uL (1.40-6.50); Neutrophils % (auto) 69.7 %; Platelet Count 189 K/uL (130-400); RDW Coefficient of Variation 16.2 % (11.5-14.5); RDW Standard Deviation 55.8 fL (36.4-46.3); Red Blood Count 3.18 M/uL (4.20-5.40); White Blood Count 8.07 K/ul (4.8-10.8)
[2023-09-03 07:40] LABS: Albumin Globulin Ratio 1.2 (0.9-2); Albumin Level 3.4 gm/dl (3.4-5.0); BUN Creatinine Ratio 29.4 (10-20); Bilirubin,Total 0.4 mg/dl (0.2-1.0); Calcium 8.8 mg/dl (8.6-10.3); Est GFR (African American) 29.6 ml/min; Est GFR (Non-African American) 25.6 ml/min; Globulin 2.8 gm/dl (2.5-4.0); Potassium 4.5 mmol/L (3.5-5.1); Total Protein 6.2 gm/dl (6.0-8.3)
[2023-09-03] MEDS: ATORVASTATIN 20 MG TAB PO SCH (08:31)
[2023-09-03] MEDS: SOTALOL HCL 80 MG TAB PO SCH (08:31)
[2023-09-03] MEDS: CLOPIDOGREL BISULFATE 75 MG TAB PO SCH (08:31)
[2023-09-03] MEDS: FOLIC ACID 1 MG TAB PO SCH (08:31)
[2023-09-03] MEDS: PANTOprazole 40 MG TAB PO SCH ×2 (08:31→21:49)
[2023-09-03] MEDS: TORSEMIDE 10 MG TAB PO SCH (08:31)
[2023-09-03] MEDS: UMECLIDINIUM/VILANTEROL 62.5/25MCG 7 PUFFS/INHALER INH SCH (08:32)
[2023-09-03] MEDS: SERTRALINE HCL 50 MG TABLET PO SCH (08:32)
[2023-09-03] MEDS: CHOLECALCIFEROL 1,000 UNITS 25 MCG TAB PO SCH (08:32)
[2023-09-03] MEDS: FERROUS SULFATE 325 MG TAB PO SCH (08:32)
[2023-09-03] MEDS: CYANOCOBALAMIN (B-12) 100 MCG TABLET PO SCH (08:32)
[2023-09-03] MEDS: ASPIRIN 81 MG ECTAB PO SCH (08:32)
[2023-09-03] MEDS: INSULIN ASPART PER UNIT CHARGE SC SCH ×4 (08:38→20:42)
--- NOTE | 2023-09-03 13:32 | Hospitalist Progress Note ---
Date of Service September 03, 2023 Assessment & Plan (1) Generalized weakness: (2) S/P mitral valve clip implantation: (3) Presence of Watchman left atrial appendage closure device: (4) CKD (chronic kidney disease): (5) Anemia: (6) Depression: (7) Hypothyroidism: (8) SSS (sick sinus syndrome): Plan 82 yo F w/ hx of CAD, history of PAF, presence of Watchman device, chronic diastolic CHF, severe tricuspid regurg, pulm hypertension, history of mitral valve clip implantation, T2DM with CKD stage IIIb and retinopathy, secondary hyperparathyroidism, hypothyroidism, hyperlipidemia, RADHA, asthma, GERD, history of Mnire's disease, anemia, history of TIA, depression, history of endometrial cancer and recent admission for stroke workup, admitted once more with generalized weakness. 08/23-Stroke alert in AM, last known well of 8:50AM per nursing. Then noted slurred speech, slight facial droop, pt with headache, dizziness, heavy tongue and numbness Seen by telestroke neurologist from [facility] who recommended STOP aspirin and plavix. Advised to Stop Plavix indefinitely, continue aspirin once stable. Low suspicion for stroke, symptoms more likely from acute blood loss (Hgb 6.5) requiring transfusion. CT head and neck images reviewed by telestroke neurologist, which showed no acute stroke, recommended repeating MRI brain (pt had one recently on 08/15) if pt had persistent symptoms post-transfusion. 08/31 Pt mentions that she had some tongue numbness last evening. She did not mention it to anybody, it resolved by itself. Will cont. to monitor and will discuss w/ neurology. 09/01 says she has numbness feeling of her tongue on and off. she thinks it's from having dry mouth. lozenges ordered. And discussed w/ neurology - they do not believe pt needs any imaging or further neuro work-up Generalized Weakness Pt recently admitted and discharged on 08/15 after stroke work up Was seen by PT at that time who recommended home with family support. Was seen by her pcp with frequent falls at home, 2 within the last week Per son, has been having progressive lower extremity weakness that causes her to slip and fall--retrospectively this appears to be from anemia. Pt denies LOC Outpt labs done on 08/21 with noted Cr of 2.4, head CT with no acute changes, continued sinus opacification EKG with noted paced rhythm, Echo from 08/15 with LVH, dilated atrium, EF 60- 65%, mild to moderate pulm HTN Hgb chronically low at baseline of approximately 8.5, dropped to 6.5 AM 08/23. Ordered to be transfused 2 Units UA with no signs of infection COVID test negative Chest xray notes cardiomegaly with pulm vascular congestion, chest CT confirms this-->restarted torsemide per home regimen. Electrolytes grossly within normal limits PT/OT orders placed once more for further evaluation-->rehab is recommended, but denied [facility] so referral sent to [facility] Anemia Hgb chronically decreased, normocytic at this time -at home on iron, folic acid and b12 supplementation Baseline ~8.5, dropped to 6.5 AM of 08/23 transfused 2 units pRBCs-no active bleeding Rule out hemolysis given recent mitral clip placement a couple of months ago Peripheral smear shows rare shistocytes and spherocytes, there are no dysplastic features and no circulating immature myeloid precursors or blasts seen. There are also occasional tear drop cells and where the anemia seen may be related to chronic disease, ruling out myelodysplastic syndrome is recommended. Some RBC destruction may be occurring from prosthetic heart clip. Would recommend following up with her collection officer (Dr. Hood) following this admission for further workup of these issues. (Dr. Hood' office contacted Would recommend CBC every two weeks while on ASA/Plavix with preventive blood transfusions if needed to avoid hospitalization from symptomatic anemia again. GI eval - as outpt- recommending conservative management w/ EGD/EUS later this month as OP, consideration of repeat colonoscopy. Started IV iron per nephrology - as per review - pt has hx of iron deficiency anemia. Pt has 08/19 t sat 15% and ferritin 408 in EPIC; [facility] heme in 03/2023 attributed anemia to iron deficiency and CKD. Started IV iron load 200 mg IV daily x 5 days (EOT 08/31); may consider SIENNA after d/c Hgb 7.4 on 08/29/23 1 unit prbc 08/30 Hgb 9.5, will cont. to monitor 08/31 Hgb 9.3 09/01 Hgb 10.2 09/02 hgb 9.7 Acute on Chronic Kidney disease Etiology of worsening renal function likely prerenal azotemia in the setting of acute anemia Nephrology consulted for further recs given worsening and persistent improved creatinine, which is close to her baseline at high 1s Chronic Sinusitis Noted on head imaging during last admission for stroke/TIA workup Noted once more on recent repeat head CT ordered by pcp completed 10 day course of doxycycline Due for outpt followup with ENT Pulmonary HTN Chest xray with noted pulmonary vascular congestion, cardiomegaly Echo with noted worsening pulm HTN Followup as outpatient PAF 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 Rivera-requires DAPT x 45 days. This was restarted 08/24 Cardiac pacemaker 2/2 SSS not on anticoagulation due to severe GIB in past Continue sotalol at reduced dosing per cardiology May ultimately need to discontinue this medication, however, she is poorly tolerant of atrial fibrillation in the past and there is no evidence of QT prolongation or rhythm concerns. Hypothyroidism TSH elevated, t4 wnl Continue home levothyroxine and repeat TFTs as outpatient when feeling better. T2DM diet controlled, last a1c 6.8 ISS RADHA O2 at HS HLD chronic,stable continue statin Diet: DMII DVT ppx: SCDs, no chemoprophy 2/2 hx of severe GIB in past DNR/DNI Dispo- D/C to [facility] tomorrow pt was seen and examined in collaboration with Dr. Natarajan, please see addendum A total of 42 was spent coordinating, documenting, and providing care for this patient excluding time spent in the performance of separately billed services. This included personally viewing all current laboratories and imaging studies, medication reconciliation, outpatient chart review, and discussion with specialists. Admission and Anticipated Discharge Date Admission Date: August 22, 2023 Supervising Physician Co-Signing Physician Notes Pt seen and examined by me, care coordinated w/ Festus Bridges PA-C, pls refer to her note above for further detail. Pt is currently sitting up in bed in NAD, playing on her ipad. Denies any chest pain, increased shortness of breath, abd. pain, n/v. Pt is awake, alert, able to answer simple questions appropriately. Lungs are CTAB, heart sounds rrr, abdomen soft and nontender. Awaiting placement at rehab/ CM involved - peer to peer today by Festus Bridges. Likely plan to DC [facility]mrw to [facility].. MD Rosa Isela Subjective Pt seen and evaluated in room 375-1. Follow up weakness/anemia. Pt is discouraged due to not being able to go [facility]. She denies f/c/s, chest pain, sob, n/v/d, abd pain. Appetite has been good. She is hopeful for [facility] as plan B. Review of Systems Review of Systems: All systems reviewed & are unremarkable except as noted in HPI & below Physical Exam Physical Exam: Gen: WD/WN, NAD, A&O x3 HEENT: Normocephalic, atraumatic, conjunctivae moist, sclerae anicteric, mucous membranes moist. Lung: Clear to Auscultation bilaterally, no wheezes/rales/rhonchi Heart: Regular rate, regular rhythm, no murmurs, rubs, or gallops Abdomen: Soft, NT, ND +BS x 4 Extremities: No edema Skin: Warm, no rash, negative turgor. Results & Data Results & Data Vital Signs (Past 12 Hours) Vital Signs Temp Pulse Resp BP BP Pulse Ox O2 Del Method 09/03/23 13:12 36.4 C L 60 18 130/70 95 Room Air 09/03/23 08:03 36.6 C 70 18 130/70 95 Room Air Laboratory Results Short CBC 09/03/23 Range/Units 06:42 WBC 8.07 (4.8-10.8) K/ul Hgb 9.7 L (12.0-16.0) g/dl Hct 30.0 L (37.0-47.0) % Plt Count 189 (130-400) K/uL BMP 09/03/23 06:42 Sodium 137 Potassium 4.5 Chloride 108 H Carbon Dioxide 22 BUN 53 H Creatinine 1.80 H Glucose 103 H Calcium 8.8 Liver Function 09/03/23 Range/Units 06:42 Total Bilirubin 0.4 (0.2-1.0) mg/dl AST 51 H (13-39) U/L ALT 23 (7-52) U/L Alkaline Phosphatase 149 H (34-104) U/L Albumin 3.4 (3.4-5.0) gm/dl Medications Administered Current Inpatient Medications Acetaminophen (Acetaminophen 500 Mg Tab) 1,000 mg PO Q8H PRN PRN Reason: Pain or Fever Stop: 09/22/23 04:16 Al Hydrox/Mg Hydrox/Simethicone (Aluminum/Magnesium Susp 30 Ml Udc) 15 ml PO Q6H PRN PRN Reason: Indigestion Stop: 09/22/23 04:16 Allopurinol (Allopurinol 300 Mg Tab) 300 mg PO HS [facility] Stop: 09/22/23 20:59 Last Admin: 09/02/23 20:32 Dose: 300 mg Aspirin (Aspirin 81 Mg Ectab) 81 mg PO [facility] Stop: 09/23/23 12:14 Last Admin: 09/03/23 08:32 Dose: 81 mg Atorvastatin Calcium (Atorvastatin 20 Mg Tab) 20 mg PO [facility] Stop: 09/22/23 08:59 Last Admin: 09/03/23 08:31 Dose: 20 mg Clopidogrel Bisulfate (Clopidogrel Bisulfate 75 Mg Tab) 75 mg PO [facility] Stop: 09/23/23 12:14 Last Admin: 09/03/23 08:31 Dose: 75 mg Cyanocobalamin (Cyanocobalamin (B-12) 100 Mcg Tablet) 100 mcg PO [facility] Stop: 09/22/23 08:59 Last Admin: 09/03/23 08:32 Dose: 100 mcg Dextrose (Dextrose 50% 50 Ml Syringe) 25 - 50 ml IV UD PRN; Protocol PRN Reason: Hypoglycemia Protocol Stop: 09/22/23 10:33 Ferrous Sulfate (Ferrous Sulfate 325 Mg Tab) 325 mg PO [facility] Stop: 09/22/23 08:59 Last Admin: 09/03/23 08:32 Dose: 325 mg Folic Acid (Folic Acid 1 Mg Tab) 1 mg PO [facility] Stop: 09/22/23 08:59 Last Admin: 09/03/23 08:31 Dose: 1 mg Glucagon (Glucagon For Inj 1 Mg Vial) 1 mg SQ UD PRN; Protocol PRN Reason: Hypoglycemia Protocol Stop: 09/22/23 10:33 Glucose (Glucose 10 Tab/Tube) 4 - 8 tab PO UD PRN; Protocol PRN Reason: Hypoglycemia Treatment Stop: 09/22/23 10:33 Glucose (Glucose 40% Gel 15 Gm Tube) 15 - 30 gm PO UD PRN; Protocol PRN Reason: Hypoglycemia Protocol Stop: 09/22/23 10:33 Insulin Aspart (Insulin Aspart Per Unit Charge) 0 units SC [facility] Stop: 09/22/23 11:29 Last Admin: 09/03/23 12:18 Dose: 3 units Levalbuterol HCl (Levalbuterol Tartrate 15 Gm Hfa.Aer.Ad) 1 puffs INH Q4 PRN PRN Reason: Shortness Of Breath Stop: 09/22/23 03:17 Levothyroxine Sodium (Levothyroxine Sodium 125 Mcg Tablet) 125 mcg PO DAILYBB JULIO CESAR Stop: 09/22/23 06:29 Last Admin: 09/03/23 06:01 Dose: 125 mcg Lorazepam (Lorazepam 1 Mg Tab) 1 mg PO HS PRN PRN Reason: sleep/anxiety Stop: 09/22/23 03:17 Last Admin: 08/23/23 21:43 Dose: 1 mg Menthol (Cough Drop (Sugar Free) Siomara 24 Siomara/1 Box) 1 siomara BUCCAL Q2H PRN PRN Reason: Sore Throat Stop: 10/01/23 10:29 Miscellaneous (Carbohydrates For Hypoglycemia ) 15 - 30 gm PO UD PRN PRN Reason: Hypoglycemia Protocol Stop: 09/22/23 10:33 Montelukast Sodium (Montelukast Sodium 10 Mg Tablet) 10 mg PO PM JULIO CESAR Stop: 09/22/23 20:59 Last Admin: 09/02/23 20:32 Dose: 10 mg Pantoprazole Sodium (Pantoprazole 40 Mg Tab) 40 mg PO BID JULIO CESAR Stop: 09/22/23 20:59 Last Admin: 09/03/23 08:31 Dose: 40 mg Polyethylene Glycol (Polyethylene (Miralax) 17 Gm Pack) 17 gm PO DAILY PRN PRN Reason: Constipation Stop: 09/22/23 04:16 Sertraline HCl (Sertraline Hcl 50 Mg Tablet) 150 mg PO QAM [facility] Stop: 09/22/23 08:59 Last Admin: 09/03/23 08:32 Dose: 150 mg Sotalol HCl (Sotalol Hcl 80 Mg Tab) 40 mg PO DAILY JULIO CESAR Stop: 09/23/23 08:59 Last Admin: 09/03/23 08:31 Dose: 40 mg Torsemide (Torsemide 10 Mg Tab) 10 mg PO QAM JULIO CESAR Stop: 09/25/23 08:59 Last Admin: 09/03/23 08:31 Dose: 10 mg Umeclidinium/Vilanterol (Umeclidinium/Vilanterol 62.5/25mcg 7 Puffs/Inhaler) 1 puffs INH DAILY JULIO CESAR Stop: 09/22/23 08:59 Last Admin: 09/03/23 08:32 Dose: 1 puffs Vitamin D (Cholecalciferol 1,000 Units 25 Mcg Tab) 4,000 units PO QAM JULIO CESAR Stop: 09/22/23 08:59 Last Admin: 09/03/23 08:32 Dose: 4,000 units (4) CKD (chronic kidney disease) Chronic kidney disease stage: unspecified stage Qualified Code(s): N18.9 - Chronic kidney disease, unspecified (5) Anemia Iron deficiency anemia type: chronic blood loss
[2023-09-03] MEDS: MONTELUKAST SODIUM 10 MG TABLET PO SCH (21:49)
[2023-09-03] MEDS: allopurinoL 300 MG TAB PO SCH (21:49)
[2023-09-04] MEDS: LEVOTHYROXINE SODIUM 125 MCG TABLET PO SCH (06:13)
[2023-09-04] MEDS: UMECLIDINIUM/VILANTEROL 62.5/25MCG 7 PUFFS/INHALER INH SCH (08:31)
[2023-09-04] MEDS: CLOPIDOGREL BISULFATE 75 MG TAB PO SCH (08:32)
[2023-09-04] MEDS: SOTALOL HCL 80 MG TAB PO SCH (08:32)
[2023-09-04] MEDS: ASPIRIN 81 MG ECTAB PO SCH (08:32)
[2023-09-04] MEDS: CHOLECALCIFEROL 1,000 UNITS 25 MCG TAB PO SCH (08:32)
[2023-09-04] MEDS: PANTOprazole 40 MG TAB PO SCH (08:32)
[2023-09-04] MEDS: TORSEMIDE 10 MG TAB PO SCH (08:32)
[2023-09-04] MEDS: SERTRALINE HCL 50 MG TABLET PO SCH (08:32)
[2023-09-04] MEDS: FOLIC ACID 1 MG TAB PO SCH (08:33)
[2023-09-04] MEDS: FERROUS SULFATE 325 MG TAB PO SCH (08:33)
[2023-09-04] MEDS: ATORVASTATIN 20 MG TAB PO SCH (08:33)
[2023-09-04] MEDS: CYANOCOBALAMIN (B-12) 100 MCG TABLET PO SCH (08:33)
[2023-09-04] MEDS: INSULIN ASPART PER UNIT CHARGE SC SCH ×2 (08:35→12:25)
--- NOTE | 2023-09-04 11:31 | Discharge Summary ---
Discharge Summary Date of Service September 04, 2023 Notes For Next Care Provider Please check CBC and BMP in 3 days. Repeat TSH/T4 in 4 weeks. Hemoglobin on day of discharge is 9.7. Creatinine on day of discharge is 1.8. She will need follow-up with hematology as outpatient. She already has an appointment on 09/18. Please ensure she attends this appointment. She recently had cardiovascular surgery with MitraClip placement in February 2023 as well as Watchman device procedure on 08/04/2023. She is to be on aspirin and Plavix for 45 days. She has a scheduled follow-up appointment with cardiology, please ensure she has had this appointment for further clarification on aspirin and Plavix. During hospitalization she has unexplained anemia. She did require 2 units of blood transfusion. Hemoglobin has remained stable. She received IV iron for 5 days. She is on oral supplementation of iron, folic acid and B12. She needs further follow-up with gastroenterology and hematology for this. Medication Changes From Visit Sotalol was reduced to 40 mg daily. Admission HPI Per Admitting Provider 82-year-old female who has a significant past medical history of CAD, history of PAF, presence of Watchman device, chronic diastolic CHF, severe tricuspid regurg, pulm hypertension, history of mitral valve clip implantation, T2DM with CKD stage IIIb and retinopathy, secondary hyperparathyroidism, hypothyroidism, hyperlipidemia, RADHA, asthma, GERD, history of Mnire's disease, anemia, history of TIA, depression, history of endometrial cancer and recent admission for stroke workup, admitted once more with generalized weakness. Son present, states that the progressive lower extremity weakness has been present prior to the last admission. It has just been getting progressively worse. Pt denies LOC when she falls. Had 2 falls in the last week. States it feels like her legs give way and then she slips and falls. Son notes Hx of knee "issues" states that she has been having injections into the right knee, unsure what they are. Pt denies dysuria but son notes she has had UTIs in the past where she has been asymptomatic. Son concerned about recent watchman placement and whether it is working as it should. Pt states that her appetite is decreased but does drink fluids quite a bit. Review of symptoms positive for chronic rhinorrhea and a very dry mouth. Pt lives at home with a of similar age with dementia who cannot help her much at home. Son states that he lives nearby. Admission Exam Per Admitting Provider General: Alert, oriented. No acute distress Skin: No noted rashes or bruises Psych: Appropriate mood and affect Neuro: weakness in lower extremities bilaterally HEENT: NC/AT CV: RRR Resp: Breath sounds clear bilaterally, no increased effort of breathing. Abdomen: soft, nontender, nondistended. Extremities: No edema in lower extremities bilaterally. Principal Dx & Hospital Course #1 = Principal Diagnosis (1) Generalized weakness: (2) S/P mitral valve clip implantation: (3) Presence of Watchman left atrial appendage closure device: (4) CKD (chronic kidney disease): (5) Anemia: (6) Depression: (7) Hypothyroidism: (8) SSS (sick sinus syndrome): Plan 82 yo F w/ hx of CAD, history of PAF, presence of Watchman device, chronic diastolic CHF, severe tricuspid regurg, pulm hypertension, history of mitral valve clip implantation, T2DM with CKD stage IIIb and retinopathy, secondary hyperparathyroidism, hypothyroidism, hyperlipidemia, RADHA, asthma, GERD, history of Mnire's disease, anemia, history of TIA, depression, history of endometrial cancer and recent admission for stroke workup, admitted once more with generalized weakness. Prior to this hospitalization she was hospitalized on 08/14 for stroke workup. She again was a stroke alert on 08/23 due to noted slurred speech, slight facial droop and headache. She was seen by teleneurologist from [facility]. It was felt her symptoms were likely due to anemia and hgb of 6.5 requiring [address] head showed no acute stroke. MRI on 08/15 from prior admission was negative for acute event. Repeat MRI was not performed as symptoms improved post blood transfusion and there was low suspicion for CVA. During hospital course she was treated with oral doxycycline for sinusitis. Her anemia workup included a peripheral smear which showed rare schistocytes, spherocytes and that there was no dysplastic features and no circulating immature myeloid precursor cells or blast seen. There was occasional teardrop cells and is felt that may be related to chronic disease; however, myelodysplastic syndrome has not been ruled out and further hematology evaluation is recommended. She did receive a 5-day course of IV Venofer. She also remains maintained on oral iron, vitamin B12 and folic acid. It is recommended she follow-up with GI as an outpatient for EGD and possible colonoscopy to rule out GI loss. She was seen by gastroenterology as inpatient and they recommended conservative management at this time. She also seen and followed by nephrology due to acute on chronic kidney injury. This was felt to be secondary to anemia as well as contrast dye. Symptoms improved with transfusion. She further was seen by cardiology throughout hospital stay due to recent Watchman device procedure placed on 07/[address] Rivera at [facility]. Her sotalol dose was reduced to 40mg daily due to renal insufficiency. It is recommended she be maintained on aspirin and Plavix for 45 days due to this procedure. She is to follow-up with cardiology as scheduled. Lastly her TSH was notably elevated on admission but had a normal T4. Recommend repeat TSH in 4 weeks. She was seen and evaluated by PT and rehab was recommended. On day of discharge she was hemodynamically stable. Her hemoglobin on 09/03 was 9.7. She is good spirits and eager to get to rehab. She offers no acute concerns or complaints. She is tolerating diet and moving bowels. DNR/DNI Discharge Exam Gen: WD/WN, NAD, A&O x3 HEENT: Normocephalic, atraumatic, conjunctivae moist, sclerae anicteric, mucous membranes moist. Lung: Clear to Auscultation bilaterally, no wheezes/rales/rhonchi Heart: Regular rate, regular rhythm, 1/6 allyson noted mitral area, no rubs, or gallops Abdomen: Soft, NT, ND +BS x 4 Extremities: No edema Skin: Warm, no rash, negative turgor. Updated Medication List Medication Instructions Recorded Confirmed Type montelukast 10 mg tablet 10 mg PO PM 04/08/19 08/23/23 History ferrous sulfate 325 mg (65 mg 325 mg PO QAM 06/03/20 08/23/23 History iron) tablet atorvastatin 20 mg tablet 20 mg PO QAM 11/26/21 08/23/23 History cholecalciferol (vitamin D3) 50 100 mcg PO QAM 11/26/21 08/23/23 History mcg (2,000 unit) capsule (Vitamin D3) aspirin 81 mg tablet,delayed 81 mg PO HS 01/04/22 08/23/23 History release levalbuterol tartrate 45 1 puff inhalation Q4 PRN Shortness 08/07/22 08/23/23 History mcg/actuation aerosol inhaler Of Breath (Xopenex HFA) sertraline 100 mg tablet 150 mg PO QAM 08/07/22 08/23/23 History sotalol 80 mg tablet 40 mg PO AMPM 08/07/22 08/23/23 History cyanocobalamin (vitamin B-12) 100 100 mcg PO QAM 11/07/22 08/23/23 History mcg tablet (Vitamin B-12) folic acid 1 mg tablet 1 mg PO QAM 11/07/22 08/23/23 History tiotropium 2.5 mcg-olodaterol 2.5 2 puff inhalation QAM 11/07/22 08/23/23 History mcg/actuation mist for inhalation (Stiolto Respimat) torsemide 10 mg tablet 10 mg PO QAM 11/07/22 08/23/23 History ipratropium bromide 21 mcg (0.03 2 spray intranasal DAILY PRN 12/06/22 08/23/23 History %) nasal spray rhinorrhea pantoprazole 40 mg tablet,delayed 40 mg PO BID #60 tabs 12/09/22 08/23/23 Rx release allopurinol 300 mg tablet 300 mg PO HS 08/14/23 08/23/23 History clopidogrel 75 mg tablet 75 mg PO PM 08/14/23 08/23/23 History lorazepam 1 mg tablet 1 mg PO HS PRN sleep/anxiety 08/14/23 08/23/23 History doxycycline hyclate 100 mg tablet 100 mg PO BID 10 days #20 tabs 08/15/23 08/23/23 Rx levothyroxine 125 mcg capsule 125 mcg PO QAM 08/22/23 08/23/23 History Hospital Stay Data Consultations 08/22/23 18:04 ED Decision to Admit Stat 08/22/23 19:54 Consult Cardiology Routine Consult Nephrology Routine 08/23/23 09:19 Consult Neurology Routine 08/23/23 09:21 Consult Gastroenterology Routine Diagnostic Imagining Performed Chest X-Ray 08/22/23 12:56 XR chest 1V not portable HISTORY: 83 years-old Female Weakness acute weakness COMPARISON: 11/07/2022 TECHNIQUE: PA view of the chest FINDINGS: Cardiac silhouette is enlarged. There is a left subclavian pacer. Surgical clips project over the left heart border right upper quadrant. No pneumothorax, pleural effusion or airspace consolidation. Pulmonary vascular congestion. Fusion hardware noted within the cervical spine. Cholecystectomy. Left atrial ex clusion device. IMPRESSION: Cardiomegaly with pulmonary vascular congestion. ACT 112: Negative or not required by law. The above report was generated using voice recognition software. It may contain grammatical, syntax or spelling errors. Electronically signed by: Talha Caballero M.D. 08/22/2023 1:[address] 08/23/23 08:00 CT chest diagnostic wo con CLINICAL HISTORY: 83 years-old Female with weakness, pulm vasc congestion, cardiomegaly. Acute weakness with cardiomegaly TECHNIQUE: Multiaxial CT images of the chest were performed without contrast. A dose lowering technique was utilized adhering to the principles of ALARA. COMPARISON: CTA neck of same day, chest CT 01/04/2022 FINDINGS: 9 mm hypodense left thyroid nodule. 11 mm subcarinal lymph node is likely benign. Trace pericardial effusion. Moderate cardiomegaly with moderate coronary artery calcifications. Left atrial exclusion device. Left subclavian pacer. Intralobular septal thickening. Mild pulmonary emphysema. Stable 3 mm groundglass right apical pulmonary nodule, image 36. Mild bibasilar ground glass densities. Bronchial wall thickening. Central airways are patent. No airspace consolidation typical for pneumonia. Cortical thinning of the kidneys with bilateral renal cysts. Cholecystectomy. Atrophy of the pancreas. Unremarkable soft tissues. No acute fracture. Partially imaged cervical spinal fusion hardware. IMPRESSION: 1. Cardiomegaly with mild pulmonary edema. 2. Emphysema. 3. Mild mediastinal lymphadenopathy, likely reactive. 4. Trace pericardial effusion. 5. Cholecystectomy. ACT 112: Negative or not required by law. Electronically signed by: Talha Caballero M.D. 08/23/2023 10:[address] 08/23/23 09:05 CT angio head w con, CT angio neck with con, CT head/brain wo con CLINICAL HISTORY: 83 years-old Female with slurred speech, facial droop. Acute stroke like symptoms COMPARISON STUDY: Head CT 08/14/2023, brain MRI 08/13/2023 TECHNIQUE: Unenhanced axial CT scan of the brain is performed. Subsequently, following the IV administration of 118 cc of Optiray, CT angiogram of the head and neck was performed from the aortic arch to the skull apex. Images are reviewed in the axial, sagittal, and coronal planes. 3-D MIPS images are created and assessed. IV contrast was administered without complication. All measurements were obtained according to NASCET criteria. A dose lowering technique was utilized adhering to the principles of ALARA. CT DOSE: 1124.49 mGy.cm (accession [id number]), 602.96 mGy.cm (accession [id number]) FINDINGS: CT BRAIN: There is no acute intracranial hemorrhage, midline shift, hydrocephalus, intracranial mass, territorial ischemia or abnormal extra-axial collections. No abnormal intra-axial or extra-axial enhancement. Involutional changes with chronic microvascular ischemic disease. Mastoid air cells and middle ear cavities are clear. No calvarial fracture. Chronic severe mucoperiosteal thickening of the frontal, ethmoid and axillary sinuses. Prior bilateral lens repair. CT ANGIOGRAM OF THE HEAD AND NECK: Three-vessel morphology of the thoracic aortic arch. Patency of the innominate and image subclavian arteries. The common and internal carotid arteries are patent. Atherosclerosis of the carotid bulbs without significant stenosis. Additional calcified plaque of the cavernous, clinoid and supraclinoid segments. The bilateral anterior and middle cerebral arteries are also patent. The vertebral and basilar arteries are patent. Mild to moderate multifocal luminal narrowing of the posterior cerebral arteries. There is high-grade stenosis of the P2 segment right posterior cerebral artery. There is no aneurysm, additional high-grade stenosis, or proximal branch occlusion identified. Dural sinuses appear patent. Pulmonary emphysema. Intralobular septal thickening may represent a component of pulmonary edema. Postoperative and degenerative changes of the cervical spine. Left subclavian pacer. IMPRESSION: 1. No acute intracranial abnormality. 2. Multifocal stenoses of the posterior cerebral arteries, high-grade on the right. 3. Otherwise unremarkable CTA of the head and neck. 4. Pulmonary emphysema. 5. Severe chronic paranasal sinus disease. ACT 112: Negative or not required by law. The above report was generated using voice recognition software. It may contain grammatical, syntax or spelling errors. Electronically signed by: Talha Caballero M.D. 08/23/2023 9:50 AM Head CTA 08/23/23 09:16 CT angio head w con, CT angio neck with con, CT head/brain wo con CLINICAL HISTORY: 83 years-old Female with slurred speech, facial droop. Acute stroke like symptoms COMPARISON STUDY: Head CT 08/14/2023, brain MRI 08/13/2023 TECHNIQUE: Unenhanced axial CT scan of the brain is performed. Subsequently, following the IV administration of 118 cc of Optiray, CT angiogram of the head and neck was performed from the aortic arch to the skull apex. Images are reviewed in the axial, sagittal, and coronal planes. 3-D MIPS images are created and assessed. IV contrast was administered without complication. All measurements were obtained according to NASCET criteria. A dose lowering technique was utilized adhering to the principles of ALARA. CT DOSE: 1124.49 mGy.cm (accession [id number]), 602.96 mGy.cm (accession [id number]) FINDINGS: CT BRAIN: There is no acute intracranial hemorrhage, midline shift, hydrocephalus, intracranial mass, territorial ischemia or abnormal extra-axial collections. No abnormal intra-axial or extra-axial enhancement. Involutional changes with chronic microvascular ischemic disease. Mastoid air cells and middle ear cavities are clear. No calvarial fracture. Chronic severe mucoperiosteal thickening of the frontal, ethmoid and axillary sinuses. Prior bilateral lens repair. CT ANGIOGRAM OF THE HEAD AND NECK: Three-vessel morphology of the thoracic aortic arch. Patency of the innominate and image subclavian arteries. The common and internal carotid arteries are patent. Atherosclerosis of the carotid bulbs without significant stenosis. Additional calcified plaque of the cavernous, clinoid and supraclinoid segments. The bilateral anterior and middle cerebral arteries are also patent. The vertebral and basilar arteries are patent. Mild to moderate multifocal luminal narrowing of the posterior cerebral arteries. There is high-grade stenosis of the P2 segment right posterior cerebral artery. There is no aneurysm, additional high-grade stenosis, or proximal branch occlusion identified. Dural sinuses appear patent. Pulmonary emphysema. Intralobular septal thickening may represent a component of pulmonary edema. Postoperative and degenerative changes of the cervical spine. Left subclavian pacer. IMPRESSION: 1. No acute intracranial abnormality. 2. Multifocal stenoses of the posterior cerebral arteries, high-grade on the right. 3. Otherwise unremarkable CTA of the head and neck. 4. Pulmonary emphysema. 5. Severe chronic paranasal sinus disease. ACT 112: Negative or not required by law. The above report was generated using voice recognition software. It may contain grammatical, syntax or spelling errors. Electronically signed by: Talha Caballero M.D. 08/23/2023 9:50 AM Neck CTA 08/23/23 09:16 CT angio head w con, CT angio neck with con, CT head/brain wo con CLINICAL HISTORY: 83 years-old Female with slurred speech, facial droop. Acute stroke like symptoms COMPARISON STUDY: Head CT 08/14/2023, brain MRI 08/13/2023 TECHNIQUE: Unenhanced axial CT scan of the brain is performed. Subsequently, following the IV administration of 118 cc of Optiray, CT angiogram of the head and neck was performed from the aortic arch to the skull apex. Images are reviewed in the axial, sagittal, and coronal planes. 3-D MIPS images are created and assessed. IV contrast was administered without complication. All measurements were obtained according to NASCET criteria. A dose lowering technique was utilized adhering to the principles of ALARA. CT DOSE: 1124.49 mGy.cm (accession [id number]), 602.96 mGy.cm (accession [id number]) FINDINGS: CT BRAIN: There is no acute intracranial hemorrhage, midline shift, hydrocephalus, intracranial mass, territorial ischemia or abnormal extra-axial collections. No abnormal intra-axial or extra-axial enhancement. Involutional changes with chronic microvascular ischemic disease. Mastoid air cells and middle ear cavities are clear. No calvarial fracture. Chronic severe mucoperiosteal thickening of the frontal, ethmoid and axillary sinuses. Prior bilateral lens repair. CT ANGIOGRAM OF THE HEAD AND NECK: Three-vessel morphology of the thoracic aortic arch. Patency of the innominate and image subclavian arteries. The common and internal carotid arteries are patent. Atherosclerosis of the carotid bulbs without significant stenosis. Additional calcified plaque of the cavernous, clinoid and supraclinoid segments. The bilateral anterior and middle cerebral arteries are also patent. The vertebral and basilar arteries are patent. Mild to moderate multifocal luminal narrowing of the posterior cerebral arteries. There is high-grade stenosis of the P2 segment right posterior cerebral artery. There is no aneurysm, additional high-grade stenosis, or proximal branch occlusion identified. Dural sinuses appear patent. Pulmonary emphysema. Intralobular septal thickening may represent a component of pulmonary edema. Postoperative and degenerative changes of the cervical spine. Left subclavian pacer. IMPRESSION: 1. No acute intracranial abnormality. 2. Multifocal stenoses of the posterior cerebral arteries, high-grade on the right. 3. Otherwise unremarkable CTA of the head and neck. 4. Pulmonary emphysema. 5. Severe chronic paranasal sinus disease. ACT 112: Negative or not required by law. The above report was generated using voice recognition software. It may contain grammatical, syntax or spelling errors. Electronically signed by: Talha Caballero M.D. 08/23/2023 9:50 AM Pending Results Patient Have Any Pending Studies at Discharge: No Discharge Instructions Given to Patient (Per Discharging Provider) MEDICATION CHANGES: Sotalol has been reduced to 40mg daily. SUMMARY OF TEST RESULTS: You were admitted to hospital for generalized weakness, frequent falls in setting of worsening anemia. You received 2 units of blood total during admission. Your work up of anemia is not complete. You need to follow up with GI as well has hematology as an outpatient. Completed doxycycline course for sinusitis. PENDING TEST RESULTS: None RECOMMENDATIONS FOR FOLLOW-UP: Follow up with PCP as scheduled. Follow up with Hematology, Dr. Hood office, for further Anemia work up as well as abnormal smear findings on your lab work. This is scheduled for 09/18/23. Follow up with GI for Endoscopy later this month, consider repeat colonoscopy in setting of worsening anemia. Your primary care provider or [facility] will need to arrange this. Follow up with cardiology in follow up for A fib, Watchman device follow up. Continue aspirin and plavix as directed by your property valuer. You are to be on this for 45 days and you will be directed by your property valuer when you are to discontinue this. Recommend frequent CBC while at rehab and Q2 week CBC once home while on dual antiplatelet with goal of avoiding repeat hospitalizations. TSH elevated during admission - repeat TSH and T4 as outpatient when feeling better. OTHER INSTRUCTIONS: Seek medical attention if you have: * temperature above 101 * chest pain or trouble breathing * abdominal pain, nausea, vomiting * diarrhea, dark stools or bloody stools * any unanswered questions or concerns Call 911 if symptoms are severe. Please take good care of yourself. Call if you have any questions or problems. You can reach a [facility] hospitalist on duty at [facility] 24 hours a day by calling [phone]. Ramona Bridges PA-C [facility] Hospitalist Total Time Total Time Spent Total Time Spent (In Minutes): 60 minutes Supervising Physician Co-Signing Physician Notes Patient seen and examined by me, care coordinated w/ B. Yuliana FULTON, pls refer to her note above for further detail. Pt is currently sitting up in bed in NAD. Denies any chest pain, increased shortness of breath, abd. pain, n/v. Pt is awake, alert, able to answer simple questions appropriately. Lungs are CTAB, heart sounds rrr, abdomen soft and nontender. Patient will need to follow up with hematology/oncology (Dr. Hood) - his office contacted and aware. She will also need to follow up with gastroenterology and cardiology. Plan to discharge to [facility]. MD Rosa Isela
== END 2023-09-04 13:05 | DRG 812 ==
LOC: ED 12:19 → SUATTDRO 18:02 → EDINP 18:02 → 2N 19:54 → 3N 08-26 21:51

== ENCOUNTER 2023-10-09 17:02 | Inpatient (IN) ==
--- NOTE | 2023-10-09 17:16 | ED Triage Note ---
Date of Service October 09, 2023 Provider in Triage Author: Veronique Pelayo History of Present Illness This patient was briefly evaluated while in triage. An abbreviated physical exam was performed. This patient is a 83-year-old Female who presents to the ED for evaluation of weakness and several falls. Was here and admitted for similar symptoms, was in rehab but is home now for about 2 weeks. PT eval today and was concerned about her condition. Patient feels like she is getting weaker and still falling. Got blood transfusions while in the hospital. Follows with heme for anemia of unknown cause, put back on blood thinners. Physical Exam CONSTITUTIONAL: No acute distress. Well appearing. RESPIRATORY: Clear to auscultation bilaterally. Equal expansion bilaterally. CARDIOVASCULAR: Regular rate and rhythm. GASTROINTESTINAL: Soft, nontender. NEUROLOGIC: Alert and oriented X 4 with normal affect. Normal speech. Initial orders for labs and / or imaging were placed and patient was placed in the waiting area until a bed is available. Please see further documentation for the full ED course.
[2023-10-09 17:42] LABS: Basophils # (auto) 0.05 K/uL (0.00-0.20); Basophils % (auto) 0.4 %; Eosinophils # (auto) 0.44 K/uL (0.00-0.50); Eosinophils % (auto) 3.9 %; Hematocrit (blood only) 33.5 % (37.0-47.0); Hemoglobin 10.6 g/dl (12.0-16.0); Immature Granulocytes # (auto) 0.08 K/uL (0.01-0.20); Immature Granulocytes % (auto) 0.7 %; Lymphocytes # (auto) 1.12 K/uL (1.20-3.40); Lymphocytes % (auto) 9.9 %; Mean Corpuscular Hgb Conc 31.6 g/dL (32.0-36.0); Mean Corpuscular Volume 94.9 fL (80.0-100.0); Mean Platelet Volume 9.8 fL (9.4-12.4); Monocytes # (auto) 0.94 K/uL (0.11-0.59); Monocytes % (auto) 8.3 %; Neutrophils # (auto) 8.71 K/uL (1.40-6.50); Neutrophils % (auto) 76.8 %; Nucleated RBC # (auto) 0.05 K/uL (0.00-0.12); Nucleated RBC % (auto) 0.4 %; Platelet Count 240 K/uL (130-400); RDW Coefficient of Variation 16.5 % (11.5-14.5); RDW Standard Deviation 57.3 fL (36.4-46.3); Red Blood Count 3.53 M/uL (4.20-5.40); White Blood Count 11.34 K/ul (4.8-10.8)
[2023-10-09 17:59] LABS: Albumin Globulin Ratio 1.1 (0.9-2); Albumin Level 4.1 gm/dl (3.4-5.0); BUN Creatinine Ratio 17.3 (10-20); Bilirubin,Total 0.7 mg/dl (0.2-1.0); Calcium 9.6 mg/dl (8.6-10.3); Creatinine Clr Calc Pharmacy 20.4 ml/min; Est GFR (African American) 26.7 ml/min; Est GFR (Non-African American) 23.1 ml/min; Globulin 3.6 gm/dl (2.5-4.0); Potassium 4.3 mmol/L (3.5-5.1); Total Protein 7.7 gm/dl (6.0-8.3)
[2023-10-09 18:06] LABS: Troponin I High Sensitivity 27.2 pg/ml (0-14)
[2023-10-09 18:08] LABS: INR 1.1 (0.9-1.1); Prothrombin Time 11.8 Seconds (9.0-12.0)
--- NOTE | 2023-10-09 18:15 | XRay Report ---
SINGLE VIEW CHEST CLINICAL HISTORY: Generalized weakness. FINDINGS: A PA chest radiograph is compared to study dated 08/22/2023 and correlated with chest CT da bobbi 08/23/2023. A 2-lead cardiac pacemaker is unchanged in position. The heart is enlarged noting ath erosclerotic calcification of the thoracic. The pulmonary vasculature is noncongested. Emphysema and chronic interstitial thickening is similar to previous. There is bibasilar scarring/atelectasis. No l arge pleural effusion or pneumothorax is seen. The skeletal structures are osteopenic. The bony thora x is grossly intact. Fusion hardware is noted in the lower cervical spine. Cholecystectomy clips are seen in the right upper quadrant. IMPRESSION: 1. Cardiomegaly and cardiac pacemaker without radiographic evidence of congestive failure. 2. Emphysema. 3. No airspace consolidation or large pleural effusion is identified. ACT 112: Negative or not required by law. Electronically signed by: Jay Sandoval M.D. 10/09/2023 6:14 PM
[2023-10-09 18:16] LABS: Thyroid Stimulating Hormone 10.006 uIu/ml (0.300-4.500)
--- NOTE | 2023-10-09 18:33 | CT Scan Report ---
CT SCAN OF THE BRAIN WITHOUT IV CONTRAST CLINICAL HISTORY: Falls. Generalized weakness. COMPARISON STUDY: CT of the brain dated 08/23/2023. TECHNIQUE: Unenhanced axial CT scan of the brain is performed from the vertex to the skull base. A do se lowering technique was utilized adhering to the principles of ALARA. CT DOSE: 547.75 mGy.cm FINDINGS: Brain parenchyma: There is age-related involutional change noting moderate subcortical and periventri cular microangiopathic disease. There is no hemorrhage, mass effect, or evidence of acute territorial ischemia by CT criteria. Rosario-white matter differentiation is preserved. No extra-axial fluid collec tion is seen. Ventricles, sulci, cisterns: Prominent secondary to involutional change. Intracranial vasculature: There is atherosclerotic calcification of the cavernous carotid arteries. Calvarium: The skeletal structures are osteopenic. No depressed calvarial fracture is seen. Sinuses and mastoids: There is mucosal thickening within the ethmoid and maxillary sinuses. There is also trace mucosal thickening in the frontal sinuses. The mastoid air cells are well pneumatized. Orbits: The bony orbits are grossly intact. There are bilateral ocular lens implants. IMPRESSION: There is no hemorrhage, mass effect, or evidence of acute territorial ischemia by CT raleight paul. ACT 112: Negative or not required by law. Electronically signed by: Jay Sandoval M.D. 10/09/2023 6:31 PM
[2023-10-09 18:50] LABS: T4 Free Thyroxine 1.2 ng/dl (0.61-1.60)
[2023-10-09 21:25] LABS: Appearance Urine Clear (Clear); Bacteria Urine Automated Negative (Negative); Bilirubin Urine Negative (Negative); Blood Urine Negative (Negative); Color Urine Yellow; Epithelial Cell Urine Auto >30 /lpf (0-5); Glucose Urine UA Negative (Negative); Ketones Urine Negative (Negative); Leukocyte Esterase Urine 2+ (Negative); Nitrite Urine Negative (Negative); Protein Urine Negative (Negative); RBC Urine Automated 0-4 /hpf (0-4); Specific Gravity Urine 1.011 (1.000-1.030); Urobilinogen Urine Negative (Negative)
[2023-10-09] MEDS: SODIUM CHLORIDE 0.9% 1,000 ML IV SCH (21:40)
--- NOTE | 2023-10-09 22:19 | History & Physical Report ---
Date of Service October 09, 2023 Assessment & Plan (1) Generalized weakness: Plan: 83-year-old female with past medically history significant for type 2 diabetes, diabetic retinopathy, CKD stage III, hypercholesterolemia, obstructive sleep apnea, moderate persistent asthma, paroxysmal atrial fibrillation, s/p watchman's device, history of mitral valve clip implantation, sick sinus syndrome s/p pacemaker, pulmonary hypertension, peripheral vascular disease, chronic diastolic CHF, angiodysplasia of colon, aneurysm of left carotid artery, severe tricuspid regurgitation, CAD , GERD, Mnire's disease, iron deficiency anemia, depression, history of endometrial cancer , TIA presents with weakness. She was in the hospital in early August of this year with weakness and at the time she also found to have hemoglobin of 6.5 requiring 2 units of PRBCs. And a lso was treated for sinusitis with oral doxycycline. Anemia workup was done with peripheral smear which showed occasional teardrop cells thought to be related to chronic disease but myelodysplastic syndrome has not been ruled out and further hematology evaluation was recommended. She also received 5-day course of IV Venofer. Seen by GI and recommended conservative management at that time. She also seen by nephrology for TIFFANY on chronic disease. Symptoms improved with transfusion. Her sotalol dose was reduced to 40 mg daily due to renal insufficiency. Followed up with cardiology in first week of September and seems she underwent follow-up BRENDAN for a Watchman procedure in August and was noted large thrombus on device. At that point her aspirin was discontinued she was started Eliquis 2.5 mg twice daily. There is a plan to repeat echo to be completed near future. And also plan for endoscopy and colonoscopy in near future. After last admission in August patient was in rehab. As per son after coming from home she is been gradually getting weak. She ambulates with a rollator walker. Lately having diarrhea. Not able to eat much. Poor appetite. Recently she fell from the commode but did not totally fall down. Yesterday in the parking lot of [employer] she almost fell down. Because of diarrhea and weakness son brought her back to the hospital today. Denies any headache c urrently.. No neck pain. Chronic back pain. States she has some vision problem yesterday but today the vision is okay. Chronic earaches. Chronic runny nose. No sore throat. Currently no chest pain. States with exertion she gets some short of breath. She felt nauseous today. No vomiting. Mild abdominal discomfort. Denies any blood in the stools. Micturating okay. Currently hemodynamics are okay. Afebrile Generalized weakness Diarrhea Will follow stool studies- came back positive for c diff gene and EAEC Gentle fluids Monitor in the hospital PT OT C diff stool positive for gene but negative for toxin as she is having diarrhea started on Dificid.Probiotics. will monitor. Anemia Iron deficiency anemia Hemoglobin is okay at 10.6 Last admission she received 2 units of PRBCs and IV Venofer There is a plan for EGD and colonoscopy Will follow stool for Hemoccult Paroxysmal atrial fibrillation S/p Watchman device History of mitral valve clip implantation Echo in August showed large thrombus on Watchman device On Eliquis Currently not on any rate controlling medications Following with cardiology Plan for repeat echo Sick sinus syndrome S/p pacemaker TIFFANY? on CKD stage III Present with creatinine 1.9 Baseline creatinine around 1.5 Creatinine was around 1.7-1.8 last admission Holding torsemide Getting gentle fluids Follow repeat labs Mild elevation of troponin Mostly demand ischemia Will follow serial enzymes Possible UTI Will follow cultures Empiric azactum Hypothyroidism Continue home Synthroid TSH elevated normal free T4 Needs follow-up Diabetes Not on meds Insulin sliding scale Will follow HbA1c levels Hyperlipidemia On statin GERD On Protonix Chronic diastolic CHF Holding torsemide Getting gentle fluids Monitor for volume overload Depression On Zoloft History of asthma Continue home inhalers DVT prophylaxis Eliquis Disposition Med/tele Full code if there is chance of recovery as per my discussion with the son History of Present Illness Chief Complaint: Weakness Primary Care Provider: Florentin Calvo DO 83-year-old female with past medically history significant for type 2 diabetes, diabetic retinopathy, CKD stage III, hypercholesterolemia, obstructive sleep apnea, moderate persistent asthma, paroxysmal atrial fibrillation, s/p watchman's device, history of mitral valve clip implantation, sick sinus syndrome s/p pacemaker, pulmonary hypertension, peripheral vascular disease, chronic diastolic CHF, angiodysplasia of colon, aneurysm of left carotid artery, severe tricuspid regurgitation, CAD , GERD, Mnire's disease, iron deficiency anemia, depression, history of endometrial cancer , TIA presents with weakness. She was in the hospital in early August of this year with weakness and at the time she also found to have hemoglobin of 6.5 requiring 2 units of PRBCs. And also was treated for sinusitis with oral doxycycline. Anemia workup was done with peripheral smear which showed occasional teardrop cells thought to be related to chronic disease but myelodysplastic syndrome has not been ruled out and further hematology evaluation was recommended. She also received 5-day course of IV Venofer. Seen by GI and recommended conservative management at that time. She also seen by nephrology for TIFFANY on chronic disease. Symptoms improved with transfusion. Her sotalol dose was reduced to 40 mg daily due to renal insufficiency. Followed up with cardiology in first week of September and seems she underwent follow-up BRENDAN for a Watchman procedure in August and was noted large thrombus on device. At that point her aspirin was discontinued she was started Eliquis 2.5 mg twice daily. There is a plan to repeat echo to be completed near future. And also plan for endoscopy and colonoscopy in near future. After last admission in August patient was in rehab. As per son after coming from home she is been gradually getting weak. She ambulates with a rollator walker. Lately having diarrhea. Not able to eat much. Poor appetite. Recently she fell from the commode but did not totally fall down. Yesterday in the parking lot of [employer] she almost fell down. Because of diarrhea and weakness son brought her back to the hospital today. Denies any headache currently.. No neck pain. Chronic back pain. States she has some vision problem yesterday but today the vision is okay. Chronic earaches. Chronic runny nose. No sore throat. Currently no chest pain. States with exertion she gets some short of breath. She felt nauseous today. No vomiting. Mild abdominal discomfort. Denies any blood in the stools. Micturating okay. Currently hemodynamics are okay. Afebrile Past medical history. As mentioned above Past surgical history. Colonoscopy. Cardiac cath. Cystoscopy. EGD. Laparoscopic total hysterectomy. Laparoscopic cholecystectomy. Ligation of oviducts. Neck spine fusion surgery. Lumbar laminectomy. Percutaneous closure of left atrial appendage. Tonsillectomy. Left repair of ruptured rotator cuff. Sinus surgery. Bilateral transcatheter mitral valve repair. Social history. . Quit smoking 1978. Smoked 1.25 packs a day for 18 years. No alcohol use. No drug use. Family history. Brother had a brain and lung cancer. Father had diabetes. Mother had glaucoma. Neurological disorder. Maternal grandmother had stomach cancer. . Allergies Allergy/AdvReac Type Severity Reaction Status Date / Time Sulfa (Sulfonamide Allergy Severe Severe Verified 10/09/23 21:19 Antibiotics) rxn: rash and hives celecoxib Allergy Intermediate Rash/Hives/ Verified 10/09/23 21:19 Itching. cephalexin Allergy Intermediate Rash/Hives/ Verified 10/09/23 21:19 Itching. furosemide Allergy Intermediate Rash/Hives/ Verified 10/09/23 21:19 Itching. gabapentin Allergy Intermediate Rash/Hives/ Verified 10/09/23 21:19 Itching. pregabalin Allergy Intermediate Rash/Hives/ Verified 10/09/23 21:19 Itching. meclizine Allergy Unknown Unknown Verified 10/09/23 21:19 methylprednisolone Allergy Unknown Rash/Hives/ Verified 10/09/23 21:19 Itching. Penicillins Allergy Unknown Unknown. Verified 10/09/23 21:19 prednisone Allergy Unknown Rash/Hives/ Verified 10/09/23 21:19 Itching. vancomycin Allergy Unknown Jodi Verified 10/09/23 21:19 syn. . nickel Allergy Unknown Verified 10/09/23 21:19 dexamethasone AdvReac Intermediate Steroid Verified 10/09/23 21:19 psychosis. Home Medications Medication Instructions Recorded Confirmed Type montelukast 10 mg tablet 10 mg PO PM 04/08/19 10/09/23 History ferrous sulfate 325 mg (65 mg 325 mg PO QAM 06/03/20 10/09/23 History iron) tablet atorvastatin 20 mg tablet 20 mg PO QAM 11/26/21 10/09/23 History cholecalciferol (vitamin D3) 50 100 mcg PO QAM 11/26/21 10/09/23 History mcg (2,000 unit) capsule (Vitamin D3) levalbuterol tartrate 45 1 puff inhalation Q4 PRN Shortness 08/07/22 10/09/23 History mcg/actuation aerosol inhaler Of Breath (Xopenex HFA) sertraline 100 mg tablet 150 mg PO QAM 08/07/22 10/09/23 History cyanocobalamin (vitamin B-12) 100 100 mcg PO QAM 11/07/22 10/09/23 History mcg tablet (Vitamin B-12) folic acid 1 mg tablet 1 mg PO QAM 11/07/22 10/09/23 History tiotropium 2.5 mcg-olodaterol 2.5 2 puff inhalation QAM 11/07/22 10/09/23 History mcg/actuation mist for inhalation (Stiolto Respimat) torsemide 10 mg tablet 10 mg PO QAM 11/07/22 10/09/23 History ipratropium bromide 21 mcg (0.03 2 spray intranasal DAILY PRN 12/06/22 10/09/23 History %) nasal spray rhinorrhea pantoprazole 40 mg tablet,delayed 40 mg PO BID #60 tabs 12/09/22 10/09/23 Rx release allopurinol 300 mg tablet 300 mg PO HS 08/14/23 10/09/23 History lorazepam 1 mg tablet 1 mg PO HS PRN sleep/anxiety 08/14/23 10/09/23 History levothyroxine 125 mcg capsule 125 mcg PO QAM 08/22/23 10/09/23 History apixaban 2.5 mg tablet (Eliquis) 2.5 mg PO AMHS 10/09/23 10/09/23 History Past Med/Surg History Medical History SSS (sick sinus syndrome) Chronic diastolic (congestive) heart failure TIA (transient ischemic attack) Nausea Leukocytosis Near syncope Hypotension Dehydration TIFFANY (acute kidney injury) Near syncope Elevated brain natriuretic peptide (BNP) level Pneumonia Atrial flutter Carotid artery aneurysm Prolonged QT interval Atrial fibrillation with RVR DM type 2 (diabetes mellitus, type 2) History of tobacco abuse Encounter for pre-operative examination Cholelithiasis Cholecystitis Chest pain at rest Pulmonary emphysema Osteoarthritis of right knee HTN (hypertension) RADHA (obstructive sleep apnea) Atrial fibrillation and flutter CKD (chronic kidney disease), stage III Meniere disease Depression Hypothyroidism Asthma, moderate persistent Surgical History History of hysterectomy History of cholecystectomy History of repair of left rotator cuff Hx of neck surgery H/O sinus surgery History of laminectomy Family History Father Diabetes Social History Smoking Status: Never smoker Tobacco Type: Cigarettes packs per day: 1.5; Cigarettes Per Day: 30; Second Hand Exposure: No; Do You Dip or Chew Tobacco: No; Hx Alcohol Use: No Hx Substance Use: No Preferred Language: French Communication Ability: Effective Director Of Parks And Recreation Required: No Beliefs That Will Affect Care: None marital status: Current Living Situation: Spouse Other Information That Helps Us Care for You: No Feels Safe at Home: Yes Safety Concerns: Feels Safe At This Time Assistive Devices: Walker Review of Systems Review of Systems: All systems reviewed & are unremarkable except as noted in HPI & below Physical Exam Physical Exam: General- Not in distress Head- atraumatic Eyes- PERRL. ENT- oropharynx clear Neck- supple, no JVD. Lungs- clear to auscultation, no wheezing or crackles. Heart- regular rhythm; no murmur, no gallop. Abdomen- normal bowel sounds, soft, nontender, no distension. Extremities- mild pretibial edema, no erythema seen. Neuro- alert, oriented ; PERRL, no facial palsy; no dysarthria; moves extremities. Skin- warm & dry Results & Data Results & Data Vital Signs (Past 12 Hours) Vital Signs Temp Pulse Pulse Resp BP BP Pulse Ox 10/09/23 21:40 86 18 138/72 96 10/09/23 21:12 80 10/09/23 17:12 37.0 C 76 18 148/63 H 97 O2 Del Method 10/09/23 21:40 Room Air 10/09/23 21:12 10/09/23 17:12 Room Air Diagnostic Findings Laboratory Results WBC 11.34 K/ul (4.8-10.8) H 10/09/23 17: RBC 3.53 M/uL (4.20-5.40) L 10/09/23 17:29 Hgb 10.6 g/dl (12.0-16.0) L 10/09/23 17: Hct 33.5 % (37.0-47.0) L 10/09/23 17: MCV 94.9 fL (80.0-100.0) 10/09/23 17:29 MCH 30.0 pg (25.0-34.0) 10/09/23 17: MCHC 31.6 g/dL (32.0-36.0) L 10/09/23 17:29 RDW Std Deviation 57.3 fL (36.4-46.3) H 10/09/23 17: RDW Coeff of Francisco Javier 16.5 % (11.5-14.5) H 10/09/23: Plt Count 240 K/uL (130-400) 10/09/23 17: MPV 9.8 fL (9.4-12.4) 10/09/23: Immature Gran % (Auto) 0.7 % 10/09/23: Neut % (Auto) 76.8 % 10/09/23 17: Lymph % (Auto) 9.9 % 10/09/23: [place] % (Auto) 8.3 % 10/09/23 17: Eos % (Auto) 3.9 % 10/09/23: Baso % (Auto) 0.4 % 10/09/23: Neut # (Auto) 8.71 K/uL (1.40-6.50) H 10/09/23: Lymph # (Auto) 1.12 K/uL (1.20-3.40) L 10/09/23 17: [place] # (Auto) 0.94 K/uL (0.11-0.59) H 10/09/23: Eos # (Auto) 0.44 K/uL (0.00-0.50) 10/09/23: Baso # (Auto) 0.05 K/uL (0.00-0.20) 10/09/23: Immature Gran # (Auto) 0.08 K/uL (0.01-0.20) 10/09/23: Absolute Nucleated RBC 0.05 K/uL (0.00-0.12) 10/09/23: Nucleated RBC % (auto) 0.4 % 10/09/23: PT 11.8 Seconds (9.0-12.0) 10/09/23: INR 1.1 (0.9-1.1) 10/09/23: Sodium 134 mmol/L (136-145) L 10/09/23: Potassium 4.3 mmol/L (3.5-5.1) 10/09/23: Chloride 99 mmol/L (98-107) 10/09/23 17:29 Carbon Dioxide 25 mmol/L (21-32) 10/09/23 17: Anion Gap 10 (3-11) 10/09/23 17:29 BUN 34 mg/dl (6-23) H 10/09/23 17:29 Creatinine 1.96 mg/dl (0.6-1.2) H 10/09/23 17: Est Cr Clr Drug Dosing 20.4 ml/min 10/09/23 17:29 Est GFR ( Amer) 26.7 ml/min 10/09/23 17: Est GFR (Non-Af Amer) 23.1 ml/min 10/09/23 17: BUN/Creatinine Ratio 17.3 (10-20) 10/09/23 17: Glucose 101 mg/dl (70-99(Fasting)) H 10/09/23 17: Calcium 9.6 mg/dl (8.6-10.3) 10/09/23 17: Magnesium 2.0 mg/dl (1.7-2.4) 10/09/23 17: Total Bilirubin 0.7 mg/dl (0.2-1.0) 10/09/23 17:29 AST 46 U/L (13-39) H 10/09/23 17:29 ALT 21 U/L (7-52) 10/09/23 17:29 Alkaline Phosphatase 168 U/L (34-104) H 10/09/23 17: Troponin I High Sens 25.9 pg/ml (0-14) H 10/09/23 20:43 Total Protein 7.7 gm/dl (6.0-8.3) 10/09/23 17: Albumin 4.1 gm/dl (3.4-5.0) 10/09/23 17: Globulin 3.6 gm/dl (2.5-4.0) 10/09/23 17: Albumin/Globulin Ratio 1.1 (0.9-2) 10/09/23 17: TSH 10.006 uIu/ml (0.300-4.500) H 10/09/23 17: Free T4 1.20 ng/dl (0.61-1.60) 10/09/23 17:29 Urine Color Yellow 10/09/23 20:52 Urine Appearance Clear (Clear) 10/09/23 20:52 Urine pH 5.0 (4.5-7.5) 10/09/23 20:52 Ur Specific [place] 1.011 (1.000-1.030) 10/09/23 20:52 Urine Protein Negative (Negative) 10/09/23 20:52 Urine Glucose (UA) Negative (Negative) 10/09/23 20:52 Urine Ketones Negative (Negative) 10/09/23 20:52 Urine Blood Negative (Negative) 10/09/23 20:52 Urine Nitrite Negative (Negative) 10/09/23 20:52 Urine Bilirubin Negative (Negative) 10/09/23 20:52 Urine Urobilinogen Negative (Negative) 10/09/23 20:52 Ur Leukocyte Esterase 2+ (Negative) H 10/09/23 20:52 Urine WBC (Auto) 10-30 /hpf (0-5) H 10/09/23 20:52 Urine RBC (Auto) 0-4 /hpf (0-4) 10/09/23 20:52 U Hyaline Cast (Auto) 10-30 /lpf (0-5) H 10/09/23 20:52 U Epithel Cells (Auto) >30 /lpf (0-5) H 10/09/23 20:52 Urine Bacteria (Auto) Negative (Negative) 10/09/23 20:52 SARS-CoV-2, RNA, NAAT NEGATIVE (NEGATIVE) 10/09/23 20:52 Blood Type O Positive 10/09/23 18:25 Antibody Screen NEGATIVE 10/09/23 18:25 Impressions Chest X-Ray 10/09/23 17:16 SINGLE VIEW CHEST CLINICAL HISTORY: Generalized weakness. FINDINGS: A PA chest radiograph is compared to study dated 08/22/2023 and correlated with chest CT dated 08/23/2023. A 2-lead cardiac pacemaker is unchanged in position. The heart is enlarged noting atherosclerotic calcification of the thoracic. The pulmonary vasculature is noncongested. Emphysema and chronic interstitial thickening is similar to previous. There is bibasilar scarring/atelectasis. No large pleural effusion or pneumothorax is seen. The skeletal structures are osteopenic. The bony thorax is grossly intact. Fusion hardware is noted in the lower cervical spine. Cholecystectomy clips are seen in the right upper quadrant. IMPRESSION: 1. Cardiomegaly and cardiac pacemaker without radiographic evidence of congestive failure. 2. Emphysema. 3. No airspace consolidation or large pleural effusion is identified. ACT 112: Negative or not required by law. Electronically signed by: Jay Sandoval M.D. 10/09/2023 6:[address] 10/09/23 17:17 CT SCAN OF THE BRAIN WITHOUT IV CONTRAST CLINICAL HISTORY: Falls. Generalized weakness. COMPARISON STUDY: CT of the brain dated 08/23/2023. TECHNIQUE: Unenhanced axial CT scan of the brain is performed from the vertex to the skull base. A dose lowering technique was utilized adhering to the principles of ALARA. CT DOSE: 547.75 mGy.cm FINDINGS: Brain parenchyma: There is age-related involutional change noting moderate subcortical and periventricular microangiopathic disease. There is no hemorrhage, mass effect, or evidence of acute territorial ischemia by CT criteria. Rosario-white matter differentiation is preserved. No extra-axial fluid collection is seen. Ventricles, sulci, cisterns: Prominent secondary to involutional change. Intracranial vasculature: There is atherosclerotic calcification of the cavernous carotid arteries. Calvarium: The skeletal structures are osteopenic. No depressed calvarial fracture is seen. Sinuses and mastoids: There is mucosal thickening within the ethmoid and maxillary sinuses. There is also trace mucosal thickening in the frontal sinuses. The mastoid air cells are well pneumatized. Orbits: The bony orbits are grossly intact. There are bilateral ocular lens implants. IMPRESSION: There is no hemorrhage, mass effect, or evidence of acute territorial ischemia by CT criteria. ACT 112: Negative or not required by law. Electronically signed by: Jay Sandoval M.D. 10/09/2023 6:31 PM ECG Additional Comments: ECG. Atrial sensed ventricular paced rhythm with rate of 86. Code Status & VTE Plan VTE Prophylaxis Plan VTE Prophylaxis will be ordered: Yes
[2023-10-09 23:47] LABS: Adenovirus F 40/41 PCR Not Detected (NotDetected); Astrovirus PCR Not Detected (NotDetected); Campylobacter PCR Not Detected (NotDetected); Cryptosporidium PCR Not Detected (NotDetected); Cyclospora cayetanensis PCR Not Detected (NotDetected); Entamoeba histolytica PCR Not Detected (NotDetected); Enteropathogenic E.coli (EPEC) Not Detected (NotDetected); Enterotoxigenic E.coli (ETEC) Not Detected (NotDetected); Giardia lamblia PCR Not Detected (NotDetected); Norovirus GI/GII PCR Not Detected (NotDetected); Plesiomonas shigelloides PCR Not Detected (NotDetected); Rotavirus A PCR Not Detected (NotDetected); Salmonella PCR Not Detected (NotDetected); Sapovirus PCR Not Detected (NotDetected); Shiga-like Toxin E.coli (STEC) Not Detected (NotDetected); Shigella/Enteroinvasive E.coli Not Detected (NotDetected); Vibrio cholerae PCR Not Detected (NotDetected); Vibrio species PCR Not Detected (NotDetected); Yersinia enterocolitica PCR Not Detected (NotDetected)
[2023-10-10 00:06] LABS: Cdiff Antigen Negative; Cdiff Toxin A+B Negative Cdiff Toxin (Negative); Cdiff Toxin B Gene (2yr or >) Positive Cdiff Gene (Neg)
[2023-10-10 00:20] LABS: Enteroaggregative E.coli(EAEC) DETECTED (NotDetected)
--- NOTE | 2023-10-10 00:33 | Emergency Department Note ---
History of Present Illness General Chief complaint: Weakness Stated complaint: LOW BLOOD COUNT, WEAKNESS, FELL YESTERDAY Time Seen by Provider: 10/09/23 20:33 Source: patient and family History of Present Illness Provider complaint: Weakness Maximum Pain Intensity: 3 83-year-old female presents emergency department for weakness. Patient has been having weakness for the last 2 weeks. She fell yesterday. Patient been having diarrhea. No melena or hematochezia. No vaginal bleeding or discharge. No hematuria or dysuria. No nausea or vomiting. No fevers. No chest pain or difficulty breathing. Son at bedside is worried that the patient might be anemic and needed blood transfusion. Home Medications Medication Instructions Recorded Confirmed Type montelukast 10 mg tablet 10 mg PO PM 04/08/19 10/09/23 History ferrous sulfate 325 mg (65 mg 325 mg PO QAM 06/03/20 10/09/23 History iron) tablet atorvastatin 20 mg tablet 20 mg PO QAM 11/26/21 10/09/23 History cholecalciferol (vitamin D3) 50 100 mcg PO QAM 11/26/21 10/09/23 History mcg (2,000 unit) capsule (Vitamin D3) levalbuterol tartrate 45 1 puff inhalation Q4 PRN Shortness 08/07/22 10/09/23 History mcg/actuation aerosol inhaler Of Breath (Xopenex HFA) sertraline 100 mg tablet 150 mg PO QAM 08/07/22 10/09/23 History cyanocobalamin (vitamin B-12) 100 100 mcg PO QAM 11/07/22 10/09/23 History mcg tablet (Vitamin B-12) folic acid 1 mg tablet 1 mg PO QAM 11/07/22 10/09/23 History tiotropium 2.5 mcg-olodaterol 2.5 2 puff inhalation QAM 11/07/22 10/09/23 History mcg/actuation mist for inhalation (Stiolto Respimat) torsemide 10 mg tablet 10 mg PO QAM 11/07/22 10/09/23 History ipratropium bromide 21 mcg (0.03 2 spray intranasal DAILY PRN 12/06/22 10/09/23 History %) nasal spray rhinorrhea pantoprazole 40 mg tablet,delayed 40 mg PO BID #60 tabs 12/09/22 10/09/23 Rx release allopurinol 300 mg tablet 300 mg PO HS 08/14/23 10/09/23 History lorazepam 1 mg tablet 1 mg PO HS PRN sleep/anxiety 08/14/23 10/09/23 History levothyroxine 125 mcg capsule 125 mcg PO QAM 08/22/23 10/09/23 History apixaban 2.5 mg tablet (Eliquis) 2.5 mg PO AMHS 10/09/23 10/09/23 History Allergies Allergy/AdvReac Type Severity Reaction Status Date / Time Sulfa (Sulfonamide Allergy Severe Severe Verified 10/09/23 21:19 Antibiotics) rxn: rash and hives celecoxib Allergy Intermediate Rash/Hives/ Verified 10/09/23 21:19 Itching. cephalexin Allergy Intermediate Rash/Hives/ Verified 10/09/23 21:19 Itching. furosemide Allergy Intermediate Rash/Hives/ Verified 10/09/23 21:19 Itching. gabapentin Allergy Intermediate Rash/Hives/ Verified 10/09/23 21:19 Itching. pregabalin Allergy Intermediate Rash/Hives/ Verified 10/09/23 21:19 Itching. meclizine Allergy Unknown Unknown Verified 10/09/23 21:19 methylprednisolone Allergy Unknown Rash/Hives/ Verified 10/09/23 21:19 Itching. Penicillins Allergy Unknown Unknown. Verified 10/09/23 21:19 prednisone Allergy Unknown Rash/Hives/ Verified 10/09/23 21:19 Itching. vancomycin Allergy Unknown Jodi Verified 10/09/23 21:19 syn. . nickel Allergy Unknown Verified 10/09/23 21:19 dexamethasone AdvReac Intermediate Steroid Verified 10/09/23 21:19 psychosis. Past Med/Surg History Medical History SSS (sick sinus syndrome) Chronic diastolic (congestive) heart failure TIA (transient ischemic attack) Nausea Leukocytosis Near syncope Hypotension Dehydration TIFFANY (acute kidney injury) Near syncope Elevated brain natriuretic peptide (BNP) level Pneumonia Atrial flutter Carotid artery aneurysm Prolonged QT interval Atrial fibrillation with RVR DM type 2 (diabetes mellitus, type 2) History of tobacco abuse Encounter for pre-operative examination Cholelithiasis Cholecystitis Chest pain at rest Pulmonary emphysema Osteoarthritis of right knee HTN (hypertension) RADHA (obstructive sleep apnea) Atrial fibrillation and flutter CKD (chronic kidney disease), stage III Meniere disease Depression Hypothyroidism Asthma, moderate persistent Surgical History History of hysterectomy History of cholecystectomy History of repair of left rotator cuff Hx of neck surgery H/O sinus surgery History of laminectomy Family History Father Diabetes Social History Smoking Status: Former smoker Tobacco Type: Cigarettes packs per day: 1.5; Cigarettes Per Day: 30; Second Hand Exposure: No; Do You Dip or Chew Tobacco: No; Hx Alcohol Use: No Hx Substance Use: No Preferred Language: Telugu Communication Ability: Effective Magazine Editor Required: No Beliefs That Will Affect Care: None marital status: Current Living Situation: Spouse Feels Safe at Home: Yes Assistive Devices: Oxygen - at Night and Walker Physical Exam Vital Signs Vital Signs - 24 hr 10/09/23 17:12 10/09/23 20:57 10/09/23 21:00 Temperature 37.0 C Temperature Source Temporal Artery Scan Pulse Rate 76 94 H Pulse Rate [Apical] Pulse Rate from SpO2 Sensor Respiratory Rate 18 20 Respiratory Effort / Characteristics Non-Labored Spontaneous Respiratory Depth Normal Respiratory Pattern Regular Blood Pressure 148/63 H 147/83 H Blood Pressure [Right Arm] Blood Pressure Mean 91 111 Blood Pressure Mean [Right Arm] Blood Pressure Position Sitting Blood Pressure Position [Right Arm] Pulse Oximetry 97 Oxygen Delivery Method Room Air Sepsis Recent Fever Within 48 Hours No Sepsis New/Unexplained Change in Mental Status N/A Sepsis Action Taken by Nursing No Action Required 10/09/23 21:00 10/09/23 21:10 10/09/23 21:12 Temperature Temperature Source Pulse Rate 84 82 80 Pulse Rate [Apical] Pulse Rate from SpO2 Sensor 84 Respiratory Rate 21 17 Respiratory Effort / Characteristics Respiratory Depth Respiratory Pattern Blood Pressure Blood Pressure [Right Arm] Blood Pressure Mean Blood Pressure Mean [Right Arm] Blood Pressure Position Blood Pressure Position [Right Arm] Pulse Oximetry 95 Oxygen Delivery Method Sepsis Recent Fever Within 48 Hours Sepsis New/Unexplained Change in Mental Status Sepsis Action Taken by Nursing 10/09/23 21:20 10/09/23 21:30 10/09/23 21:30 Temperature Temperature Source Pulse Rate 82 83 Pulse Rate [Apical] Pulse Rate from SpO2 Sensor 83 82 Respiratory Rate 22 19 Respiratory Effort / Characteristics Respiratory Depth Respiratory Pattern Blood Pressure 138/72 Blood Pressure [Right Arm] Blood Pressure Mean 103 Blood Pressure Mean [Right Arm] Blood Pressure Position Blood Pressure Position [Right Arm] Pulse Oximetry 97 96 Oxygen Delivery Method Sepsis Recent Fever Within 48 Hours Sepsis New/Unexplained Change in Mental Status Sepsis Action Taken by Nursing 10/09/23 21:40 10/09/23 21:40 10/09/23 21:50 Temperature Temperature Source Pulse Rate 84 83 Pulse Rate [Apical] 86 Pulse Rate from SpO2 Sensor 84 82 Respiratory Rate 18 22 21 Respiratory Effort / Characteristics Non-Labored Respiratory Depth Normal Respiratory Pattern Blood Pressure Blood Pressure [Right Arm] 138/72 Blood Pressure Mean Blood Pressure Mean [Right Arm] 94 Blood Pressure Position Blood Pressure Position [Right Arm] Lying Pulse Oximetry 96 95 95 Oxygen Delivery Method Room Air Sepsis Recent Fever Within 48 Hours Sepsis New/Unexplained Change in Mental Status Sepsis Action Taken by Nursing 10/09/23 22:09 10/09/23 22:10 10/09/23 22:20 Temperature Temperature Source Pulse Rate 116 H 91 H 86 Pulse Rate [Apical] Pulse Rate from SpO2 Sensor 90 85 Respiratory Rate 18 21 18 Respiratory Effort / Characteristics Respiratory Depth Respiratory Pattern Blood Pressure Blood Pressure [Right Arm] Blood Pressure Mean Blood Pressure Mean [Right Arm] Blood Pressure Position Blood Pressure Position [Right Arm] Pulse Oximetry 100 95 Oxygen Delivery Method Sepsis Recent Fever Within 48 Hours Sepsis New/Unexplained Change in Mental Status Sepsis Action Taken by Nursing 10/09/23 22:30 10/09/23 22:40 10/09/23 22:50 Temperature Temperature Source Pulse Rate 85 83 84 Pulse Rate [Apical] Pulse Rate from SpO2 Sensor 84 84 83 Respiratory Rate 17 20 21 Respiratory Effort / Characteristics Respiratory Depth Respiratory Pattern Blood Pressure Blood Pressure [Right Arm] Blood Pressure Mean Blood Pressure Mean [Right Arm] Blood Pressure Position Blood Pressure Position [Right Arm] Pulse Oximetry 98 95 94 Oxygen Delivery Method Sepsis Recent Fever Within 48 Hours Sepsis New/Unexplained Change in Mental Status Sepsis Action Taken by Nursing 10/09/23 23:00 10/09/23 23:10 10/09/23 23:13 Temperature Temperature Source Pulse Rate 79 84 84 Pulse Rate [Apical] Pulse Rate from SpO2 Sensor 80 86 Respiratory Rate 20 25 H 25 H Respiratory Effort / Characteristics Respiratory Depth Respiratory Pattern Blood Pressure 91/68 L Blood Pressure [Right Arm] Blood Pressure Mean 74 Blood Pressure Mean [Right Arm] Blood Pressure Position Blood Pressure Position [Right Arm] Pulse Oximetry 93 93 93 Oxygen Delivery Method Sepsis Recent Fever Within 48 Hours Sepsis New/Unexplained Change in Mental Status Sepsis Action Taken by Nursing 10/09/23 23:13 10/09/23 23:20 10/09/23 23:30 Temperature Temperature Source Pulse Rate 83 82 82 Pulse Rate [Apical] Pulse Rate from SpO2 Sensor 81 82 Respiratory Rate 22 20 20 Respiratory Effort / Characteristics Respiratory Depth Respiratory Pattern Blood Pressure 120/53 L Blood Pressure [Right Arm] Blood Pressure Mean 83 Blood Pressure Mean [Right Arm] Blood Pressure Position Blood Pressure Position [Right Arm] Pulse Oximetry 96 95 95 Oxygen Delivery Method Sepsis Recent Fever Within 48 Hours Sepsis New/Unexplained Change in Mental Status Sepsis Action Taken by Nursing 10/09/23 23:30 10/09/23 23:40 Temperature Temperature Source Pulse Rate 80 84 Pulse Rate [Apical] Pulse Rate from SpO2 Sensor 80 87 Respiratory Rate 21 21 Respiratory Effort / Characteristics Respiratory Depth Respiratory Pattern Blood Pressure Blood Pressure [Right Arm] Blood Pressure Mean Blood Pressure Mean [Right Arm] Blood Pressure Position Blood Pressure Position [Right Arm] Pulse Oximetry 94 89 L Oxygen Delivery Method Sepsis Recent Fever Within 48 Hours Sepsis New/Unexplained Change in Mental Status Sepsis Action Taken by Nursing Physical Exam GENERAL: oriented to person, place, and time. appears well-developed and well- nourished. HENT: Exam performed. - Head: Normocephalic and atraumatic. EYES: Conjunctivae and EOM are normal. Right eye exhibits no discharge. Left eye exhibits no discharge. No scleral icterus. NECK: Normal range of motion. Neck supple. No JVD present. CV: Normal rate, regular rhythm, normal heart sounds and intact distal pulses. There is no peripheral edema. Palpable radial pulses bue. PULM/CHEST: Effort normal and breath sounds normal. No respiratory distress. No stridor. no wheezes. no rales. ABD: The abdomen is soft. There is no tenderness. NEURO: Motor and sensation grossly intact. SKIN: Skin is warm and dry. He is not diaphoretic. PSYCH: normal mood and affect. Behavior is normal. Judgment and thought content normal. Course Course 2032: The patient was evaluated in room B4. A complete history and physical exam was performed Cardiac monitoring: An order was placed for continuous cardiac monitoring. The monitor shows a rate of 80 with paced rhythm interpreted by me Patient was seen during a time of extreme volume and extreme acuity. Nursing triage protocols were initiated labs and imaging was conducted by protocol in the triage area. Vital signs stable. Labs show an elevated troponin. Creatinine and hemoglobin stable. Patient will be admitted to the [facility] team given her elevated troponin and weakness. Patient not reporting any chest pain or difficulty breathing at this time. 0037: Patient positive for C. difficile as well as EAEC. Patient will be treated with vancomycin orally. Administered Medications Sodium Chloride (Nss) 1,000 mls @ 80 mls/hr IV .[id number] JULIO CESAR Stop: 11/08/23 20:59 Last Admin: 10/09/23 21:40 Dose: 80 mls/hr Documented By: PIERCE Medical Decision Making Laboratory Data Attestation: I reviewed the patient's lab results. 10/09/23 17:29 10/09/23 17:29 Lab Results 10/09/23 10/09/23 10/09/23 Range/Units 17:29 18:25 20:43 WBC 11.34 H (4.8-10.8) K/ul RBC 3.53 L (4.20-5.40) M/uL Hgb 10.6 L (12.0-16.0) g/dl Hct 33.5 L (37.0-47.0) % MCV 94.9 (80.0-100.0) fL MCH 30.0 (25.0-34.0) pg MCHC 31.6 L (32.0-36.0) g/dL RDW Std Deviation 57.3 H (36.4-46.3) fL RDW Coeff of Francisco Javier 16.5 H (11.5-14.5) % Plt Count 240 (130-400) K/uL MPV 9.8 (9.4-12.4) fL Immature Gran % (Auto) 0.7 % Neut % (Auto) 76.8 % Lymph % (Auto) 9.9 % [place] % (Auto) 8.3 % Eos % (Auto) 3.9 % Baso % (Auto) 0.4 % Neut # (Auto) 8.71 H (1.40-6.50) K/uL Lymph # (Auto) 1.12 L (1.20-3.40) K/uL [place] # (Auto) 0.94 H (0.11-0.59) K/uL Eos # (Auto) 0.44 (0.00-0.50) K/uL Baso # (Auto) 0.05 (0.00-0.20) K/uL Immature Gran # (Auto) 0.08 (0.01-0.20) K/uL Absolute Nucleated RBC 0.05 (0.00-0.12) K/uL Nucleated RBC % (auto) 0.4 % PT 11.8 (9.0-12.0) Seconds INR 1.1 (0.9-1.1) Sodium 134 L (136-145) mmol/L Potassium 4.3 (3.5-5.1) mmol/L Chloride 99 (98-107) mmol/L Carbon Dioxide 25 (21-32) mmol/L Anion Gap 10 (3-11) BUN 34 H (6-23) mg/dl Creatinine 1.96 H (0.6-1.2) mg/dl Est Cr Clr Drug Dosing 20.4 ml/min Est GFR ( Amer) 26.7 ml/min Est GFR (Non-Af Amer) 23.1 ml/min BUN/Creatinine Ratio 17.3 (10-20) Glucose 101 H (70-99(Fasting)) mg/dl Calcium 9.6 (8.6-10.3) mg/dl Magnesium 2.0 (1.7-2.4) mg/dl Total Bilirubin 0.7 (0.2-1.0) mg/dl AST 46 H (13-39) U/L ALT 21 (7-52) U/L Alkaline Phosphatase 168 H (34-104) U/L Troponin I High Sens 27.2 H 25.9 H (0-14) pg/ml Total Protein 7.7 (6.0-8.3) gm/dl Albumin 4.1 (3.4-5.0) gm/dl Globulin 3.6 (2.5-4.0) gm/dl Albumin/Globulin Ratio 1.1 (0.9-2) TSH 10.006 H (0.300-4.500) uIu/ml Free T4 1.20 (0.61-1.60) ng/dl Urine Color Urine Appearance (Clear) Urine pH (4.5-7.5) Ur Specific [place] (1.000-1.030) Urine Protein (Negative) Urine Glucose (UA) (Negative) Urine Ketones (Negative) Urine Blood (Negative) Urine Nitrite (Negative) Urine Bilirubin (Negative) Urine Urobilinogen (Negative) Ur Leukocyte Esterase (Negative) Urine WBC (Auto) (0-5) /hpf Urine RBC (Auto) (0-4) /hpf U Hyaline Cast (Auto) (0-5) /lpf U Epithel Cells (Auto) (0-5) /lpf Urine Bacteria (Auto) (Negative) Stl C. cayetanensis PCR (NotDetected) Stool Rotavirus A PCR (NotDetected) Stl Adenov F 40/41 PCR (NotDetected) Stool Astrovirus (PCR) (NotDetected) Stool Campylobacter PCR (NotDetected) Stl C. diff Tox B Gene (Neg) Stl C.difficile Tox A&B (Negative) Stool Cryptosporidium PCR (NotDetected) Stl E.coli Shiga Tox PCR (NotDetected) Stl Enterotoxigenic E PCR (NotDetected) Stool EPEC (PCR) (NotDetected) Stool EAEC (PCR) (NotDetected) Stl E. histolytica PCR (NotDetected) Stool Giardia Lamblia PCR (NotDetected) Stool Salmonella PCR (NotDetected) Stool Sapovirus (PCR) (NotDetected) Stl P. shigelloides PCR (NotDetected) Stl Shigella/EIEC PCR (NotDetected) St Y.enterocolitica PCR (NotDetected) Stool Vibrio (PCR) (NotDetected) Stl Vibrio cholerae PCR (NotDetected) Stl Norovirus GI/GII PCR (NotDetected) SARS-CoV-2, RNA, NAAT (NEGATIVE) Blood Type Cancelled O Positive Antibody Screen Cancelled NEGATIVE 10/09/23 10/09/23 Range/Units 20:52 22:10 WBC (4.8-10.8) K/ul RBC (4.20-5.40) M/uL Hgb (12.0-16.0) g/dl Hct (37.0-47.0) % MCV (80.0-100.0) fL MCH (25.0-34.0) pg MCHC (32.0-36.0) g/dL RDW Std Deviation (36.4-46.3) fL RDW Coeff of Francisco Javier (11.5-14.5) % Plt Count (130-400) K/uL MPV (9.4-12.4) fL Immature Gran % (Auto) % Neut % (Auto) % Lymph % (Auto) % [place] % (Auto) % Eos % (Auto) % Baso % (Auto) % Neut # (Auto) (1.40-6.50) K/uL Lymph # (Auto) (1.20-3.40) K/uL [place] # (Auto) (0.11-0.59) K/uL Eos # (Auto) (0.00-0.50) K/uL Baso # (Auto) (0.00-0.20) K/uL Immature Gran # (Auto) (0.01-0.20) K/uL Absolute Nucleated RBC (0.00-0.12) K/uL Nucleated RBC % (auto) % PT (9.0-12.0) Seconds INR (0.9-1.1) Sodium (136-145) mmol/L Potassium (3.5-5.1) mmol/L Chloride (98-107) mmol/L Carbon Dioxide (21-32) mmol/L Anion Gap (3-11) BUN (6-23) mg/dl Creatinine (0.6-1.2) mg/dl Est Cr Clr Drug Dosing ml/min Est GFR ( Amer) ml/min Est GFR (Non-Af Amer) ml/min BUN/Creatinine Ratio (10-20) Glucose (70-99(Fasting)) mg/dl Calcium (8.6-10.3) mg/dl Magnesium (1.7-2.4) mg/dl Total Bilirubin (0.2-1.0) mg/dl AST (13-39) U/L ALT (7-52) U/L Alkaline Phosphatase (34-104) U/L Troponin I High Sens (0-14) pg/ml Total Protein (6.0-8.3) gm/dl Albumin (3.4-5.0) gm/dl Globulin (2.5-4.0) gm/dl Albumin/Globulin Ratio (0.9-2) TSH (0.300-4.500) uIu/ml Free T4 (0.61-1.60) ng/dl Urine Color Yellow Urine Appearance Clear (Clear) Urine pH 5.0 (4.5-7.5) Ur Specific [place] 1.011 (1.000-1.030) Urine Protein Negative (Negative) Urine Glucose (UA) Negative (Negative) Urine Ketones Negative (Negative) Urine Blood Negative (Negative) Urine Nitrite Negative (Negative) Urine Bilirubin Negative (Negative) Urine Urobilinogen Negative (Negative) Ur Leukocyte Esterase 2+ H (Negative) Urine WBC (Auto) 10-30 H (0-5) /hpf Urine RBC (Auto) 0-4 (0-4) /hpf U Hyaline Cast (Auto) 10-30 H (0-5) /lpf U Epithel Cells (Auto) >30 H (0-5) /lpf Urine Bacteria (Auto) Negative (Negative) Stl C. cayetanensis PCR Not Detected (NotDetected) Stool Rotavirus A PCR Not Detected (NotDetected) Stl Adenov F 40/41 PCR Not Detected (NotDetected) Stool Astrovirus (PCR) Not Detected (NotDetected) Stool Campylobacter PCR Not Detected (NotDetected) Stl C. diff Tox B Gene Positive Cdiff Gene H (Neg) Stl C.difficile Tox A&B Negative Cdiff Toxin (Negative) Stool Cryptosporidium PCR Not Detected (NotDetected) Stl E.coli Shiga Tox PCR Not Detected (NotDetected) Stl Enterotoxigenic E PCR Not Detected (NotDetected) Stool EPEC (PCR) Not Detected (NotDetected) Stool EAEC (PCR) DETECTED A* (NotDetected) Stl E. histolytica PCR Not Detected (NotDetected) Stool Giardia Lamblia PCR Not Detected (NotDetected) Stool Salmonella PCR Not Detected (NotDetected) Stool Sapovirus (PCR) Not Detected (NotDetected) Stl P. shigelloides PCR Not Detected (NotDetected) Stl Shigella/EIEC PCR Not Detected (NotDetected) St Y.enterocolitica PCR Not Detected (NotDetected) Stool Vibrio (PCR) Not Detected (NotDetected) Stl Vibrio cholerae PCR Not Detected (NotDetected) Stl Norovirus GI/GII PCR Not Detected (NotDetected) SARS-CoV-2, RNA, NAAT NEGATIVE (NEGATIVE) Blood Type Antibody Screen Imaging Data Attestation: I personally reviewed and interpreted this imaging study as follows: My Impression: Chest x-ray negative. Airway clear. No pneumothorax. No consolidation. No cardiomegaly or cephalization.. No free air under the diaphragm. No fractures of the skeletal structures. Radiologist's Impression: Chest X-Ray 10/09/23 17:16 SINGLE VIEW CHEST CLINICAL HISTORY: Generalized weakness. FINDINGS: A PA chest radiograph is compared to study dated 08/22/2023 and correlated with chest CT dated 08/23/2023. A 2-lead cardiac pacemaker is unchanged in position. The heart is enlarged noting atherosclerotic calcification of the thoracic. The pulmonary vasculature is noncongested. Emphysema and chronic interstitial thickening is similar to previous. There is bibasilar scarring/atelectasis. No large pleural effusion or pneumothorax is seen. The skeletal structures are osteopenic. The bony thorax is grossly intact. Fusion hardware is noted in the lower cervical spine. Cholecystectomy clips are seen in the right upper quadrant. IMPRESSION: 1. Cardiomegaly and cardiac pacemaker without radiographic evidence of congestive failure. 2. Emphysema. 3. No airspace consolidation or large pleural effusion is identified. ACT 112: Negative or not required by law. Electronically signed by: Jay Sandoval M.D. 10/09/2023 6:[address] 10/09/23 17:17 CT SCAN OF THE BRAIN WITHOUT IV CONTRAST CLINICAL HISTORY: Falls. Generalized weakness. COMPARISON STUDY: CT of the brain dated 08/23/2023. TECHNIQUE: Unenhanced axial CT scan of the brain is performed from the vertex to the skull base. A dose lowering technique was utilized adhering to the principles of ALARA. CT DOSE: 547.75 mGy.cm FINDINGS: Brain parenchyma: There is age-related involutional change noting moderate subcortical and periventricular microangiopathic disease. There is no hemorrhage, mass effect, or evidence of acute territorial ischemia by CT criteria. Rosario-white matter differentiation is preserved. No extra-axial fluid collection is seen. Ventricles, sulci, cisterns: Prominent secondary to involutional change. Intracranial vasculature: There is atherosclerotic calcification of the cavernous carotid arteries. Calvarium: The skeletal structures are osteopenic. No depressed calvarial fracture is seen. Sinuses and mastoids: There is mucosal thickening within the ethmoid and maxillary sinuses. There is also trace mucosal thickening in the frontal sinuses. The mastoid air cells are well pneumatized. Orbits: The bony orbits are grossly intact. There are bilateral ocular lens implants. IMPRESSION: There is no hemorrhage, mass effect, or evidence of acute territorial ischemia by CT criteria. ACT 112: Negative or not required by law. Electronically signed by: Jay Sandoval M.D. 10/09/2023 6:31 PM ECG Data Attestation: I personally reviewed and interpreted this ECG as follows: Additional Comments: Paced rhythm with a rate of 86. LA 110 QRS 108 QTc 507. No ectopy. [facility] Narrative 2032: The patient was evaluated in room B4. A complete history and physical exam was performed Cardiac monitoring: An order was placed for continuous cardiac monitoring. The monitor shows a rate of 80 with paced rhythm interpreted by me Patient was seen during a time of extreme volume and extreme acuity. Nursing triage protocols were initiated labs and imaging was conducted by protocol in the triage area. Vital signs stable. Labs show an elevated troponin. Creatinine and hemoglobin stable. Patient will be admitted to the [facility] team given her elevated troponin and weakness. Patient not reporting any chest pain or difficulty breathing at this time. 0037: Patient positive for C. difficile as well as EAEC. Patient will be treated with vancomycin orally. Impression & Plan C. difficile diarrhea, Elevated troponin Discharge Plan Visit Data Chief Complaint: Weakness Stated Complaint: LOW BLOOD COUNT, WEAKNESS, FELL YESTERDAY ED Provider: Robbie Levine Discharge Problem: C. difficile diarrhea, Elevated troponin Patient Disposition: Admitted As Inpatient Forms Stand Alone Forms: My [facility] Prescriptions Prescriptions: No Action montelukast 10 mg tablet 10 mg PO PM ferrous sulfate 325 mg (65 mg iron) Tablet 325 mg PO QAM ipratropium bromide 21 mcg (0.03 %) spray,non-aerosol 2 spray INTRANASAL DAILY PRN (Reason: rhinorrhea ) pantoprazole 40 mg tablet,delayed release (DR/EC) 40 mg PO BID Qty: 60 0RF atorvastatin 20 mg tablet 20 mg PO QAM cholecalciferol (vitamin D3) [Vitamin D3] 50 mcg (2,000 unit) Capsule 100 mcg PO QAM sertraline 100 mg Tablet 150 mg PO QAM levalbuterol tartrate [Xopenex HFA] 45 mcg/actuation Hfa Aerosol Inhaler 1 puff INHALATION Q4 PRN (Reason: Shortness Of Breath) cyanocobalamin (vitamin B-12) [Vitamin B-12] 100 mcg Tablet 100 mcg PO QAM torsemide 10 mg tablet 10 mg PO QAM Stiolto Respimat 2.5-2.5 mcg/actuation mist 2 puff INHALATION QAM folic acid 1 mg Tablet 1 mg PO QAM lorazepam 1 mg tablet 1 mg PO HS PRN (Reason: sleep/anxiety ) allopurinol 300 mg tablet 300 mg PO HS levothyroxine 125 mcg capsule 125 mcg PO QAM Eliquis 2.5 mg tablet 2.5 mg PO AMHS Referrals Referrals: Florentin Calvo DO [Primary Care Provider] -
[2023-10-10] MEDS ORDERED: DEXTROSE 50% 50 ML SYRINGE IV PRN (00:57)
[2023-10-10] MEDS ORDERED: ACETAMINOPHEN 325 MG TAB PO PRN (00:57)
[2023-10-10] MEDS ORDERED: LEVALBUTEROL TARTRATE 15 GM HFA.AER.AD INH PRN (00:57)
[2023-10-10] MEDS ORDERED: GLUCOSE 10 TAB/TUBE PO PRN (00:57)
[2023-10-10] MEDS ORDERED: GLUCAGON FOR INJ 1 MG VIAL SQ PRN (00:57)
[2023-10-10] MEDS ORDERED: LORazepam 1 MG TAB PO PRN (00:57)
[2023-10-10] MEDS ORDERED: GLUCOSE 40% GEL 15 GM TUBE PO PRN (00:57)
[2023-10-10] MEDS ORDERED: NITROGLYCERIN SL 0.4 MG/TAB TAB SL PRN (00:57)
[2023-10-10] MEDS ORDERED: CARBOHYDRATES FOR HYPOGLYCEMIA PO PRN (00:57)
[2023-10-10] MEDS: FIDAXOMICIN 200 MG TAB PO SCH ×2 (01:53→09:07)
[2023-10-10] MEDS: D5W AND NSS 1,000 ML IV SCH (01:53)
[2023-10-10] MEDS: AZTREONAM 2,000 MG in DEXTROSE 5% MINI-B 100 ML IV SCH (02:23)
[2023-10-10] MEDS ORDERED: IPRATROPIUM BROMIDE NASAL SPRAY 0.06% 15ML NAE PRN (02:43)
[2023-10-10 04:05] LABS: Basophils # (auto) 0.05 K/uL (0.00-0.20); Basophils % (auto) 0.6 %; Eosinophils # (auto) 0.49 K/uL (0.00-0.50); Eosinophils % (auto) 5.4 %; Hematocrit (blood only) 26.3 % (37.0-47.0); Hemoglobin 8.6 g/dl (12.0-16.0); Immature Granulocytes # (auto) 0.05 K/uL (0.01-0.20); Immature Granulocytes % (auto) 0.6 %; Lymphocytes # (auto) 0.79 K/uL (1.20-3.40); Lymphocytes % (auto) 8.8 %; Mean Corpuscular Hemoglobin 30.7 pg (25.0-34.0); Mean Corpuscular Hgb Conc 32.7 g/dL (32.0-36.0); Mean Corpuscular Volume 93.9 fL (80.0-100.0); Mean Platelet Volume 10.3 fL (9.4-12.4); Monocytes # (auto) 1.01 K/uL (0.11-0.59); Monocytes % (auto) 11.2 %; Neutrophils # (auto) 6.62 K/uL (1.40-6.50); Neutrophils % (auto) 73.4 %; Nucleated RBC # (auto) 0.03 K/uL (0.00-0.12); Nucleated RBC % (auto) 0.3 %; Platelet Count 194 K/uL (130-400); RDW Coefficient of Variation 16.3 % (11.5-14.5); RDW Standard Deviation 55.3 fL (36.4-46.3); White Blood Count 9.01 K/ul (4.8-10.8)
[2023-10-10 04:17] LABS: BUN Creatinine Ratio 18.6 (10-20); Calcium 8.6 mg/dl (8.6-10.3); Creatinine Clr Calc Pharmacy 21.8 ml/min; Est GFR (African American) 29.1 ml/min; Est GFR (Non-African American) 25.1 ml/min; Magnesium 1.8 mg/dl (1.7-2.4)
[2023-10-10 04:23] LABS: Troponin I High Sensitivity 26.5 pg/ml (0-14)
[2023-10-10] MEDS: LEVOTHYROXINE SODIUM 125 MCG TABLET PO SCH (06:42)
--- NOTE | 2023-10-10 07:42 | Hospitalist Progress Note ---
Date of Service October 10, 2023 Assessment & Plan (1) Generalized weakness: Plan: Ms. Barakat is an 83-year-old female with past medically history significant for type 2 diabetes, diabetic retinopathy, CKD stage III, hypercholesterolemia, obstructive sleep apnea, moderate persistent asthma, paroxysmal atrial fibrillation, s/p watchman's device, history of mitral valve clip implantation, sick sinus syndrome s/p pacemaker, pulmonary hypertension, peripheral vascular disease, chronic diastolic CHF, angiodysplasia of colon, aneurysm of left carotid artery, severe tricuspid regurgitation, CAD , GERD, Mnire's disease, iron deficiency anemia, depression, history of endometrial cancer , TIA presented 10/09 with weakness and diarrhea. Patient on admission noted to have hgb 10, wbc 11.34, mild hyponatremia, TSH 10 iso recent illness/normal T4, baseline trop elevation 26.5, and mild LFT elevations consistent with prior. Renal function appears at baseline per trends since 2022. Per admitting hospitalist: "She was in the hospital in early August of this year with weakness and at the time she also found to have hemoglobin of 6.5 requiring 2 units of PRBCs. And also was treated for sinusitis with oral doxycycline. Anemia workup was done with peripheral smear which showed occasional teardrop cells thought to be related to chronic disease but myelodysplastic syndrome has not been ruled out and further hematology evaluation was recommended. She also received 5-day course of IV Venofer. Seen by GI and recommended conservative management at that time. She also seen by nephrology for TIFFANY on chronic disease. Symptoms improved with transfusion. Her sotalol dose was reduced to 40 mg daily due to renal insufficiency. Followed up with cardiology in first week of September and seems she underwent follow-up BRENDAN for a Watchman procedure in August and was noted large thrombus on device. At that point her aspirin was discontinued she was started Eliquis 2.5 mg twice daily. There is a plan to repeat echo to be completed near future. And also plan for endoscopy and colonoscopy in near future. After last admission in August patient was in rehab. As per son after coming from home she is been gradually getting weak. She ambulates with a rollator walker. Lately having diarrhea. Not able to eat much. Poor appetite. Recently she fell from the commode but did not totally fall down. Yesterday in the parking lot of [email or web address] she almost fell down. Because of diarrhea and weakness son brought her back to the hospital today." Patient endorses mild subjective improvement. Plan for CT AB/P given abdominal pain 2/2 palpation in RLQ #Generalized weakness likely related to ongoing diarrhea, poor nutrition -Treat infection below -PT/OT #Acute abdominal pain #Acute Diarrhea #Enteroaggreative E Coli #C. Diff gene positive Back positive for c diff gene and EAEC -Complete course of Dificid, 10/04 -Encourage PO Gentle fluids CT Ab/P ordered to eval abdominal pain #Chronic JALEEL Anemia Iron deficiency anemia Hgb down to 8.6 (baseline 7-8), likely hemoconcentrated from diarrhea/dehydration as all cell lines notably decreased Last admission she received 2 units of PRBCs and IV Venofer There is a plan for OP EGD and colonoscopy Patient follows with Dr. 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 sheer stress 2/[address] Hemoccult likely false positive given chronic iron supplementation #Abnormal liver enzymes Chronic mild elevation in AST, ALP No RUQ tenderness, will assess in CT AP #Chronic Troponin elevation -Plateaued, stable elevation in 20s CTM #Paroxysmal atrial fibrillation s/p Watchman device #History of mitral valve clip implantation Echo in August showed large thrombus on Watchman device On Eliquis Currently not on any rate controlling medications Following with cardiology Plan for repeat echo #Sick sinus syndrome #S/p pacemaker Monitor on tele #CKD stage IV GFR consistently in ~mid 29s since 11/2022 Creatinine was around 1.7-1.8 last admission Holding torsemide, resume as able Continue gentle fluids Follow BMP #Elevated troponin, likely demand iso dehydration, poor renal baseline Will follow serial enzymes #abnormal UA Will follow cultures Holding empiric aztreonam given ?CDI/diarrhea #Hypothyroidism Continue home Synthroid TSH 10, normal T4 1.2 Needs follow-up OP outside of acute illness #Diabetes Mellitus Type II, with CKD Not on meds, A1C 10/10 6.1% Insulin sliding scale #Hyperlipidemia On statin #GERD On Protonix #Chronic Heart failure with preserved ejection fraction Holding torsemide Getting gentle fluids Monitor for volume overload, resume diuretic as soon as possible #Depression On Zoloft #Asthma Stable Continue home inhalers DVT prophylaxis Eliquis Disposition Med/tele Full code, per prior hospitalist " if there is chance of recovery" Admission and Anticipated Discharge Date Admission Date: October 09, 2023 Subjective Patient sitting in bed comfortably. 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 Denies nausea, vomiting. Notes poor appetite in general Physical Exam Constitutional: WD/WN, vitals as above Respiratory: normal respiratory effort, lungs clear to auscultation Cardiovascular: RRR, no murmur, no edema Gastrointestinal (Abdomen): nondistended, tender in RLQ to deep palpation Results & Data Results & Data Vital Signs (Past 12 Hours) Vital Signs Pulse Pulse Resp BP BP Pulse Ox O2 Del Method 10/10/23 07:37 75 18 131/70 94 Room Air 10/10/23 06:59 75 10/10/23 06:00 85 18 146/59 H 96 10/10/23 05:12 96 10/10/23 05:10 92 10/10/23 05:00 95 10/10/23 05:00 154/111 H 95 10/10/23 04:50 78 19 95 10/10/23 04:40 75 15 92 10/10/23 04:30 76 17 91 10/10/23 04:20 79 17 92 10/10/23 04:10 77 18 91 10/10/23 04:00 78 17 92 10/10/23 04:00 79 18 135/57 L 93 10/10/23 03:50 79 18 93 10/10/23 03:50 79 10/10/23 03:40 83 22 93 10/10/23 03:30 78 18 93 10/10/23 03:20 78 19 92 10/10/23 03:10 80 18 91 10/10/23 03:00 78 16 92 10/10/23 03:00 80 18 117/55 L 92 10/10/23 02:50 80 18 92 10/10/23 02:40 83 18 91 10/10/23 02:30 77 18 94 10/10/23 02:20 79 19 94 10/10/23 02:10 78 20 95 10/10/23 02:09 81 16 97 10/10/23 01:50 88 17 90 10/10/23 01:40 83 17 91 10/10/23 01:30 79 20 91 10/10/23 01:30 86 18 134/70 93 10/10/23 01:20 86 18 93 02/16/24 01:10 80 18 94 10/10/23 01:00 83 17 115/67 92 10/10/23 01:00 83 17 92 10/10/23 00:50 84 18 91 10/10/23 00:48 81 10/10/23 00:40 82 18 91 10/10/23 00:30 83 19 130/73 93 10/10/23 00:30 83 19 93 10/10/23 00:20 79 15 93 10/10/23 00:10 90 12 10/10/23 00:00 82 18 94 10/10/23 00:00 82 20 136/60 94 10/09/23 23:50 82 20 10/09/23 23:40 84 21 89 L 10/09/23 23:30 80 21 94 10/09/23 23:30 82 20 120/53 L 95 10/09/23 23:20 82 20 95 10/09/23 23:13 83 22 96 10/09/23 23:13 84 25 H 91/68 L 93 10/09/23 23:10 84 25 H 93 10/09/23 23:00 79 20 93 10/09/23 22:50 84 21 94 10/09/23 22:40 83 20 95 10/09/23 22:30 85 17 98 10/09/23 22:20 86 18 95 10/09/23 22:10 91 H 21 100 10/09/23 22:09 116 H 18 10/09/23 21:50 83 21 95 10/09/23 21:40 84 22 95 10/09/23 21:40 86 18 138/72 96 Room Air 10/09/23 21:30 83 19 96 10/09/23 21:30 138/72 10/09/23 21:20 82 22 97 10/09/23 21:12 80 10/09/23 21:10 82 17 10/09/23 21:00 84 21 95 10/09/23 21:00 147/83 H 10/09/23 20:57 94 H 20 Laboratory Results Short CBC 10/09/23 10/10/23 Range/Units 17:29 03:38 WBC 11.34 H 9.01 (4.8-10.8) K/ul Hgb 10.6 L 8.6 L (12.0-16.0) g/dl Hct 33.5 L 26.3 L (37.0-47.0) % Plt Count 240 194 (130-400) K/uL BMP 10/09/23 10/10/23 17:29 03:38 Sodium 134 L 135 L Potassium 4.3 4.0 Chloride 99 104 Carbon Dioxide 25 23 BUN 34 H 34 H Creatinine 1.96 H 1.83 H Glucose 101 H 149 H Calcium 9.6 8.6 Liver Function 10/09/23 Range/Units 17:29 Total Bilirubin 0.7 (0.2-1.0) mg/dl AST 46 H (13-39) U/L ALT 21 (7-52) U/L Alkaline Phosphatase 168 H (34-104) U/L Albumin 4.1 (3.4-5.0) gm/dl Urine 10/09/23 Range/Units 20:52 Urine Color Yellow Urine Appearance Clear (Clear) Urine pH 5.0 (4.5-7.5) Ur Specific [place] 1.011 (1.000-1.030) Urine Protein Negative (Negative) Urine Glucose (UA) Negative (Negative) Medications Administered Home Medications Medication Instructions Recorded Confirmed Last Taken montelukast 10 mg tablet 10 mg PO PM 04/08/19 10/09/23 08/21/23 ferrous sulfate 325 mg (65 mg 325 mg PO QAM 06/03/20 10/09/23 08/22/23 iron) tablet atorvastatin 20 mg tablet 20 mg PO QAM 11/26/21 10/09/23 08/22/23 cholecalciferol (vitamin D3) 50 100 mcg PO QAM 11/26/21 10/09/23 08/22/23 mcg (2,000 unit) capsule (Vitamin D3) levalbuterol tartrate 45 1 puff inhalation Q4 PRN Shortness 08/07/22 10/09/23 Unknown mcg/actuation aerosol inhaler Of Breath (Xopenex HFA) sertraline 100 mg tablet 150 mg PO QAM 08/07/22 10/09/23 08/22/23 cyanocobalamin (vitamin B-12) 100 100 mcg PO QAM 11/07/22 10/09/23 08/22/23 mcg tablet (Vitamin B-12) folic acid 1 mg tablet 1 mg PO QAM 11/07/22 10/09/23 08/22/23 tiotropium 2.5 mcg-olodaterol 2.5 2 puff inhalation QAM 11/07/22 10/09/23 08/22/23 mcg/actuation mist for inhalation (Stiolto Respimat) torsemide 10 mg tablet 10 mg PO QAM 11/07/22 10/09/23 08/22/23 ipratropium bromide 21 mcg (0.03 2 spray intranasal DAILY PRN 12/06/22 10/09/23 08/14/23 %) nasal spray rhinorrhea pantoprazole 40 mg tablet,delayed 40 mg PO BID #60 tabs 12/09/22 10/09/23 08/22/23 release allopurinol 300 mg tablet 300 mg PO HS 08/14/23 10/09/23 10/09/23 lorazepam 1 mg tablet 1 mg PO HS PRN sleep/anxiety 08/14/23 10/09/23 Unknown levothyroxine 125 mcg capsule 125 mcg PO QAM 08/22/23 10/09/23 08/22/23 apixaban 2.5 mg tablet (Eliquis) 2.5 mg PO AMHS 10/09/23 10/09/23 Unknown Active Medications Generic Name Dose Route Start Last Admin Trade Name Freq PRN Reason Stop Dose Admin Dextrose/Sodium Chloride 1,000 mls @ 80 mls/hr 10/10/23 00:57 10/10/23 01:53 D5w And Nss IV 10/11/23 01:56 80 mls/hr .[id number] JULIO CESAR Administration Aztreonam 2,000 mg/ Dextrose 100 mls @ 100 mls/hr 10/10/23 02:00 10/10/23 03:53 IV 10/20/23 01:59 Infused Q12H JULIO CESAR Infusion Levothyroxine Sodium 125 mcg 10/10/23 06:30 10/10/23 06:42 Levothyroxine Sodium 125 Mcg Tablet PO 11/09/23 06:29 125 mcg DAILYBB JULIO CESAR Administration
[2023-10-10 08:11] LABS: Estimated Average Glucose 128 mg/dl; Hemoglobin A1C 6.1 % (4.5-5.6)
[2023-10-10] MEDS: CYANOCOBALAMIN (B-12) 100 MCG TABLET PO SCH (09:07)
[2023-10-10] MEDS: FERROUS SULFATE 325 MG TAB PO SCH (09:07)
[2023-10-10] MEDS: PANTOprazole 40 MG TAB PO SCH (09:07)
[2023-10-10] MEDS: SERTRALINE HCL 50 MG TABLET PO SCH (09:07)
[2023-10-10] MEDS: FOLIC ACID 1 MG TAB PO SCH (09:07)
[2023-10-10] MEDS: ADVANCED PROBIOTIC 650 MG CAPSULE PO SCH (09:08)
[2023-10-10] MEDS: ATORVASTATIN 20 MG TAB PO SCH (09:08)
[2023-10-10] MEDS: CHOLECALCIFEROL 25 MCG (1000 UNITS) TAB PO SCH (09:08)
[2023-10-10] MEDS: APIXABAN 2.5 MG TAB PO SCH (09:08)
[2023-10-10] MEDS: UMECLIDINIUM/VILANTEROL 62.5/25MCG 7 PUFFS/INHALER INH SCH (09:09)
--- OUTSIDE RECORDS SUMMARY | 2023-10-10 09:33 | External Medical Summary | Summary of Care ---
Author Name Unknown Organization [facility] Address [address] [place] [address] Phone [phone] Care Team Providers Care Property Condition Assessor Name Role Phone Florentin Calvo DO Primary Care Provider [phone] Reason for Visit * Reason Comments Outpatient Testing Encounter Details Date Type Department Care Team (Late st Contact Info) Description 10/06/2023 9:10 AM EST Laboratory Laboratory, [facility] [address] [place] [phone] [facility] [address] [place] [address] Iron deficiency anemia, unspecified iron deficiency anemia type Allergies Active Allergy Reactions Criticality Noted Date [...] as of this encounter (statuses as of 10/06/2023) Medications Medication Sig Dispensed Refills Start Date End Date Status Elton Digital w/Device KitIndications:Type 2 diabetes mellitus with hemoglobin A1c goal of less than 7.0% ([facility]) Use up to 1 times a day. E11.9 1 Kit 0 06/19/2021 Active Acetaminophen 325 MG Oral Tablet (Tylenol) [...] for Wheezing. 15 g 12 06/13/2022 Active Additional Information Patient not taking.Reported on 10/06/2023 CurTranTouch Spliceio In Vitro Strip (Glucose Blood) Test blood sugars up to 2 times a day E11.9 200 Strip 3 12/20/2022 Active Vitamin B-12 100 MCG Oral Tablet (vitamin B-12) Take 1 Tablet by mouth in the morning. 30 Tablet 3 02/13/2023 Active Sertraline HCl 100 MG Oral Tablet [...] DIRECTED 100 Tablet 3 03/31/2023 Active Ipratropium [place] 0.03 % Nasal Solution (Atrovent)Indicatio ns:Chronic rhinitis Administer 2 Sprays into nostril in the morning and 2 Sprays before bedtime. 90 mL 3 04/01/2023 Active Pantoprazole Sodium 40 MG Oral Tablet Delayed Release (Protonix) Take 1 Tablet by mouth in the morning and 1 Tablet by mouth in the evening. 200 Tablet 1 05/05/2023 Active Allopurinol 300 MG Oral Tablet (Zyloprim) Take 1 Tablet by mouth at bedtime. 90 Tablet 3 05/16/2023 Active Tiotropium Ch[place]ora-Olodaterol 2.5-2.5 MCG/ACT Inhalation Aerosol Solution (Stiolto Respimat) Inhale 2 Puffs by mouth in the morning. 12 g 3 05/23/2023 Active Levothyroxine Sodium 125 MCG Oral Tablet (Levoxyl) TAKE ONE TABLET BY MOUTH FIRST THING IN THE MORNING 100 Tablet 3 07/22/2023 07/21/2024 Active Torsemide 10 MG Oral Tablet (Demadex) Take 1 Tablet by mouth in the morning. 100 Tablet 3 08/20/2023 Active Folic Acid 1 MG Oral TabletIndications:C hronic atrial fibrillation (HCC) TAKE ONE TABLET BY MOUTH EVERY MORNING 100 Tablet 1 09/02/2023 09/01/2024 Active Montelukast Sodium 10 MG Oral Tablet (Singulair)Indicati ons:Moderate persistent asthma without complication TAKE ONE TABLET BY MOUTH AT BEDTIME 100 Tablet 3 09/02/2023 09/01/2024 Active Apixaban 2.5 MG Oral Tablet (Eliquis) Take 1 Tablet by mouth in the morning and 1 Tablet before bedtime. 90 Tablet 1 09/16/2023 Active documented as of this encounter (statuses as of 10/06/2023) Active Problems Problem Noted Date Diagnosed Date Presence of Watchman left atrial appendage closu re device 07/31/2023 S/P mitral valve clip implantation 03/06/2023 Atherosclerosis of pamunkey 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 02/13/2023 [...] mellitus with polyneuropathy Secondary hyperparathyroidism, renal 12/17/2018 Acquired renal cyst 06/12/2016 Iron deficiency anemia 04/24/2016 Angiodysplasia of colon with hemorrhage 04/24/20 16 Tremor 09/21/2015 Paroxysmal atrial fibrillation 09/09/2014 Last Assessment & Plan: Rate controlled. 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 Last Assessment & Plan: Now just using [...] as of this encounter (statuses as of 10/06/2023) Resolved Problems Problem Noted Date Diagnosed Date Resolved Date Hypertensive chronic kidney disease with stage 1 through stage 4 chronic kidney disease, or unspecified chronic kidney disease 08/25/2023 09/15/2023 Viral upper respiratory tract infection 11/29/2022 12/05/2022 [...] CKD protocol Elevated PTHrP level 08/20/2017 017 Controlled substance agreement signed 11/26/2016 09/29/2023 HTN, goal below 140/90 02/05/201604/18 Overview: Per HTN Protocol Atrial flutter 08/31/2014 02/24/2019 Kidney disease, chronic, sta ge III (GFR 30-59 ml/min) 10/18/2013 01/15/2018 Overview: Per CKD protocol #1 HTN, goal below 140/80 03/24/201302/07 Overview: Per HTN Protocol Asthma, moderate persistent 03/24/2013 09/21/2019 Depression 03/24/2013 05/31/2020 documented as of this encounter (statuses as of 10/06/2023) Immunizations Name Administration Dates Next Due COVID-19 [...] Date Recorded PHQ Adult Total Score 0 09/15/2023 Hunger Vital Sign Answer Date Recorded Within the past 12 months, y ou worried that your food would run out before you got the money to buy more. Never true 09/15/19 24 Within the past 12 months, t he food you bought just didn't last and you didn't have money to get more. Never true 09/15/2023 Sex and Gender Information Value Date Recorded [...] or do you have serious difficulty hearing? No[place] can hear w/ hearing aid 03/07/2023 Are [...] Care Team (Late st Contact Info) Description 10/14/2023 2:30 PM EST Office Visit Hematology/Oncology [facility] [address] [facility] [place] [address] Nereyda Metz CRNP [address] [facility] [place] [address] 10/29/2023 10:00 AM EST Office Visit Family Practice [address] [facility] [place] [address] [facility] [place] [phone] Florentin Calvo, DO [address] [facility], [place] [address] 11/03/2023 8:00 AM EDT Appointment Cardiac Studies [facility], [address] [address] 11/03/2023 1:30 PM EDT Office Visit Gynecology/Oncology, [place] [address] [place] [address] Vanessa Elena PA-C [facility] [address] [place], [place] [id number] 11/04/2023 11:00 AM EDT Office Visit Otol[facility] [address] [facility] [address] hCeri Castillo PA-C [facility] [address] 11/11/2023 8:45 AM EDT Office Visit Hematology/Oncology [facility] [address] [facility] [address] Hasmukh Hood MD [address] [place] [address] 12/08/2023 2:20 PM EDT Office Visit Family Practice [address] [place] [address] [address] [place] [address] Florentin Calvo, [address] [place] [address] 01/21/2024 2:40 PM EDT Office Visit Otolaryngology [facility] [address] [place] [address] Cheri Castillo PA-C 132 [facility] [place] [address] 02/17/2024 3:30 PM EDT Office Visit Nephrology, [facility] [address] [facility] [address] Michelle Ivy PA-C [address] [place] [address] 06/03/2024 2:15 PM EDT Office Visit Ophthalmology, [facility] [address] [place] [address] Wilbur Benavides, DO [address] [place] [address] 08/09/2024 1:00 PM EST Nurse Only Ancillary [address] [facility] [address] [facility], [place] [address] College, Nurse Annual Wellness Visit 65 [facility] [address] [facility], [place] [address] Pending Results Name Type Priority Associated Diagnoses Date /Time CBC WITH WBC DIFFERENTIAL Lab STAT Iron deficiency anemia, unspecified iron deficiency anemia type 10/06/2023 8:43 AM EST IRON SCREEN, INCLUDING TIBC Lab STAT Iron deficiency anemia, unspecified iron deficiency anemia type 10/06/2023 8:43 AM EST FERRITIN Lab STAT Iron deficiency anemia, unspecified iron deficiency anemia type 10/06/2023 8:43 AM EST CBC Lab STAT Iron deficiency anemia, unspecified iron deficiency anemia type 10/06/2023 8:43 AM EST DIFFERENTIAL, AUTOMATED Lab STAT Iron deficiency anemia, unspecified iron deficiency anemia type 10/06/2023 8:43 AM EST Health Maintenance Due Date Last Done Comments Hepatitis B (1 of 3 - Risk 3-dose series) 2000 HbA1c 02/14/2024 2023, 01/25, 08/27/2022, Additional history exists Albumin/Creatinine Ratio 02/22/2024 023, 05/01/2022, 10/26/2021, Additional history exists GFR 03/29/2024 09/29/2023, 08/26, 09/15/2023, Additional history exists Diabetic Eye Exam 05/22/2024 05/22/2023, , 05/22/2023, Additional history exists CKD PHOS USE SMARTSET 16633 08/19/202407/26, 05/01/2022, 04/03/2022, Additional history exists Diabetic Foot Exam 09/15/2024 09/15/2023, 0 10/01/2022, 10/26/2021, Additional history exists TSH 09/15/2024 09/15/2023, 08/27, 08/27/2022, Additional history exists CKD HGB USE SMARTSET 66823 09/29/202409/29, 09/29/2023, 09/22/2023, Additional history exists Depression Screening 09/29/2024 09/29/2023 DXA Scan 05/07/2025 05/07/2021, 12/24, 04/12/2013, Additional history exists COLONOSCOPY-EVERY 4 YRS AGES 18-100 03/11/2026 03/11/2022, 03/11/2022, 11/10/2020, Additional history exists DTaP,Tdap,and Td Vaccines (3 - Td or Tdap) 12/29/2028 12/29/2018, 07/15/2009, 07/15/2009 Pneumococcal Vaccine: 65+ Years Completed 09/21/2015, 05/25/2012, 07/25/2007 Zoster Vaccines Completed 07/16/2019, 04/26, 03/25/2007 Influenza Vaccine (FLU shot) Completed , 05/15/2022, 05/22/2021, Additional history exists COVID-19 Vaccine Completed 06/09/2023, , 09/10/2022, Additional history exists GARDASIL-HPV IMMUNIZATION SERIES Aged Out No longer eligible based on patient's age to complete this topic MENINGOCOCCAL (MENACTRA/MENVEO) Aged Out No longer eligible based on patient's age to complete this topic documented as of this encounter Medical Devices Implanted Type 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 Device Identifier Shelf Expiration Date Model / Serial / Lot Cath Thermodilution 6fr - [id number] Implanted:Qty: 1 on 01/24/2023 by Wilbur Rivera MD at [facility] [employer] TERE [id number] 10/15/2024 [id number] / / [id number] Mirtaclip G4 - [id number] Implanted:Qty: 1 on 03/10/2023 at [facility] [employer] 11/19/2023 [id number] / / [id number] Device Watchman Flx 31mm - [id number] Implanted:Qty: 1 on 07/31/2023 by Wilbur Rivera MD at [facility] [place] [employer] : INTRV CARD [id number] 12/02/2025 [id number] / / [id number] documented as of this encounter Visit Diagnoses Diagnosis Iron deficiency anemia, unspecified iron deficiency anemia type documented in this encounter Advance Directives Documents on File Type Date Recorded 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 No Code Status History Code Status [...] Agen t (per Health Care Power of Design Analyst document) Care Teams Property Condition Assessor Relationship Specialty Start Date End Date Florentin Calvo DO [address] [place] [address] PCP - General Internal Medicine 03/24/13 documented as of this encounter
--- OUTSIDE RECORDS SUMMARY | 2023-10-10 09:33 | External Medical Summary | Summary of Care ---
Author Name Unknown Organization [facility] Address [address] [place] [address] Phone [phone] Care Team Providers Care Client Delivery Manager Name Role Phone Florentin Calvo DO Primary Care Provider [phone] Reason for Visit * Reason Onset Date Comments Medication Question 09/29/2023 Encounter Details Date Type Department Care Team (Late st Contact Info) Description 09/29/2023 Telephone Family Practice [address] [facility] [address] [place] [address] Florentin Calvo DO [address] [place] [address] Medication Question (/) Allergies Active Allergy Reactions Criticality Noted [...] as of this encounter (statuses as of 10/03/2023) Medications Medication Sig Dispensed Refills Start Date End Date Status JumpPostTouch Verio w/Device KitIndications:Typ e 2 diabetes mellitus [...] Tablet (Lipitor)Indicatio ns:PVD (peripheral vascular disease) ([facility]),Type 2 diabetes mellitus with stage 3a chronic kidney disease and hypertension ([facility]) TAKE ONE TABLET BY MOUTH EVERY DAY DIRECTED 100 Tablet 3 03/31/2023 Active Ipratropium [place] 0.03 % Nasal Solution (Atrovent)Indicati ons:Chronic rhinitis [...] bedtime. 90 Tablet 3 05/16/2023 Active Tiotropium [place]-Olodaterol 2.5-2.5 MCG/ACT Inhalation Aerosol Solution (Stiolto Respimat) Inhale 2 Puffs by mouth in the morning. 12 g 3 05/23/2023 Active Levothyroxine Sodium 125 MCG Oral Tablet (Levoxyl) TAKE ONE TABLET BY MOUTH FIRST THING IN THE MORNING 100 Tablet 3 07/22/2023 4 Active Torsemide 10 MG Oral Tablet (Demadex) Take 1 Tablet by mouth in the morning. 100 Tablet 3 08/20/2023 Active Folic Acid 1 MG Oral TabletIndications: Chronic atrial fibrillation (HCC) TAKE ONE TABLET BY MOUTH EVERY MORNING 100 Tablet 1 09/02/2023 5 Active Montelukast Sodium 10 MG Oral Tablet (Singulair)Indicat ions:Moderate persistent asthma without complication TAKE ONE TABLET BY MOUTH AT BEDTIME 100 Tablet 3 09/02/2023 5 Active Apixaban 2.5 MG Oral Tablet (Eliquis) Take 1 Tablet by mouth in the morning and 1 Tablet before bedtime. 90 Tablet 1 09/16/2023 Active Sotalol HCl 80 MG Oral Tablet (Betapace)Indicati ons:Paroxysmal atrial fibrillation (HCC) Take 0.5 Tablets by mouth in the morning. 0 09/10/2023 4 Discontinue d(Patient preference/ discontinua tion) documented as of this encounter (statuses as of 10/03/2023) Active Problems Problem Noted Date Diagnosed Date Presence of Watchman left atrial appendage closu re device 07/31/2023 S/P mitral valve clip implantation 03/06/2023 Atherosclerosis of rincon 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 02/13/2023 [...] Obstructive sleep apnea of adult 09/09/2014 Overview: [employer] Last Assessment & Plan: Now just using [...] as of this encounter (statuses as of 10/03/2023) Resolved Problems Problem Noted Date Diagnosed Date [...] as of this encounter (statuses as of 10/03/2023) Immunizations Name Administration Dates Next Due COVID-19 mRNA, LNP-s, No Pre serve, 2-Dose Series (Moderna) 06/23/2021,10/25/2020,09/28/2020 COVID-19, LNP-s, No Preserve , Larry-sucrose, Ages 12+ (Pfizer) 04/09/2022 COVID-19, MRNA-LNP, 23-24, P F, 30 MCG/0.3 mL, 12 YRS AND ABOVE, IM ([facility]) 06/09/2023 Covid-19, Mrna, Lnp-s, Pf, B ivalent, [...] or do you have serious difficulty hearing? [place] can hear w/ hearing aid 03/07/2023 Are [...] encounter Miscellaneous Notes * Telephone Encounter - Nereyda Trinh RN - 10/03/2023 2:35 PM EST Called, spoke with patient's son Rick. Novoa verbalizing understanding of given instruction. Aware to keep appointment as scheduled for 10/06/23 to discuss further SARAH Valentin. * Telephone Encounter - Emelina Aden CRNP - 09/30/2023 8:17 AM EST CMP reviewed. Scr 1.8. Serum creatinine: 1.8 mg/dL (H) 09/29/23 1006 Estimated creatinine clearance: 23.7 mL/min (A) Creatinine clearance less than 40 mL/minute use of sotalol is contraindicated. Recommend discontinuation of sotalol- follow up as scheduled in the office on 10/06. * Telephone Encounter - Emelina Aden CRNP - 09/29/2023 10:39 AM EST I reviewed [facility] records. It looks like Dr. Chavarria reduced Sotalol to 40 mg daily on 08/27/2023 due to renal function. Will plan on a repeat EKG at follow up scheduled 10/06. Serum creatinine: 2.2 mg/dL (H) 09/22/23 0830 Estimated creatinine clearance: 19.4 mL/min (A) However, with a further declined CrCl- this medication may need discontinued. I see that a BMP was just drawn-- pending results will likely discontinue sotalol. JESS Bear * Telephone Encounter - Florentin Calvo DO - 09/29/2023 10:28 AM EST I have a question about Mrs. Durbin's Sotalol dose. Renal function is poor. Is she supposed to be on Sotalol 40 mg daily or Sotalol 40 mg two times a day ? Component Latest Ref Rng 09/22/2023 BUN 6 - 20 mg/dL 46 (H) Creatinine 0.5 - 1.0 mg/dL 2.2 (H) Estimated Glomerular Filtration Rate >=60 mL/min 21 (L) Sodium 135 - 146 mmol/L 141 Potassium 3.5 - 5.1 mmol/L 4.9 Chloride 98 - 107 mmol/L 104 CO2 22 - 32 mmol/L 26 Anion Gap 7 - 15 mmol/L 11 Glucose 70 - 120 mg/dL 96 Calcium 8.4 - 10.2 mg/dL 9.3 Legend: (H) High (L) Low documented in this encounter Plan of Treatment Upcoming Encounters Date Type Department Care Team (Late st Contact Info) Description 10/06/2023 8:30 AM EST Office Visit Cardiology, [facility] [address] [facility] [place] [address] Stephen Hewitt, 132 [facility] [place] [address] 10/14/2023 2:30 PM EST Office Visit Hematology/Oncology [facility] [address] [facility] [place] [address] Nereyda Metz CRNP [address] [place] [address] 10/29/2023 10:00 AM EST Office Visit Family Practice [address] [place] [address] [address] [facility] [address] Florentin Calvo, DO [address] [place] [address] 11/03/2023 8:00 AM EDT Appointment Cardiac Studies [facility], [place] [address] [place] [address] 11/03/2023 1:30 PM EDT Office Visit Gynecology/Oncology, [facility] [address] [place] [address] Vanessa Elena PA-C [address] [place] [address] 11/04/2023 11:00 AM EDT Office Visit Otolaryngology [facility] [address] [facility] [place] [address] Cheri Castillo PA-C 132 [facility] [place] [address] 11/11/2023 8:45 AM EDT Office Visit Hematology/Oncology [facility] [address] [facility] [place] [address] Hasmukh Hood MD 200 [facility] [place] [address] 12/08/2023 2:20 PM EDT Office Visit Family Practice 65 [facility] 293 [facility] [address] Florentin Calvo, 293 [place] [address] 01/21/2024 2:40 PM EDT Office Visit Otolaryngology [facility] [address] [facility] [place] [address] Cheri Castillo PA-C [facility] [address] 02/17/2024 3:30 PM EDT Office Visit Nephrology, [facility] [address] [facility] [place] [address] ZeMichelle chiu PA-C 200 [facility] [place] [address] 06/03/2024 2:15 PM EDT Office Visit Ophthalmology, [facility] [address] [facility] [place] [address] Wilbur Benavides, DO 21 [facility] [place] [address] 08/09/2024 1:00 PM EST Nurse Only Ancillary 65 [facility] 293 [facility], [place] [address] College, Nurse Annual Wellness Visit [address] [address] Health Maintenance Due Date Last Done Comments Hepatitis B (1 of 3 - Risk 3-dose series) 2000 HbA1c 02/14/2024 2023, 01/25, 08/27/2022, Additional history exists Albumin/Creatinine Ratio 02/22/2024 023, 05/01/2022, 10/26/2021, Additional history exists GFR 03/29/2024 09/29/2023, 08/26, 09/15/2023, Additional history exists Diabetic Eye Exam 05/22/2024 05/22/2023, , 05/22/2023, Additional history exists CKD PHOS USE SMARTSET 37993 08/19/202407/26, 05/01/2022, 04/03/2022, Additional history exists Diabetic Foot Exam 09/15/2024 09/15/2023, 0 10/01/2022, 10/26/2021, Additional history exists TSH 09/15/2024 09/15/2023, 08/27, 08/27/2022, Additional history exists CKD HGB USE SMARTSET 72872 09/29/202409/29, 09/29/2023, 09/22/2023, Additional history exists Depression [...] this encounter Medical Devices Implanted Type Area Teacher Industrial Arts Device Identifier Shelf Expiration Date Model / Serial / Lot Cath Thermodilution 6fr - [id number] Implanted:Qty: 1 on 01/24/2023 by Wilbur Rivera MD at [facility] [employer] [id number] 10/15/2024 [id number] / / [id number] Mirtaclip G4 - [id number] Implanted:Qty: 1 on 03/10/2023 at [facility] [employer] 11/19/2023 [id number] / / [id number] Device Watchman Flx 31mm - [id number] Implanted:Qty: 1 on 07/31/2023 by Wilbur Rivera MD at [facility] [employer] : INTRV CARD [id number] 12/02/2025 [id number] / / [id number] documented as of this encounter Advance Directives Documents on File Type Date Recorded Patient Chief Hospital Administrator Expl anation Advance Directives and Living Will 11/29/2022 ADVANCE DIRECTIVE / LIVING WILL Power of Edge Baster 11/29/2022 POWER OF A TTORNEY Advance Directives and Living Will 10/24/2014 ADVANCE DIRECTIVE / LIVING WILL Power of Edge Baster 10/24/2014 POWER OF A TTORNEY Latest Code [...] the patient have Health Care Power of Edge Baster? No Code Status History Code Status Date [...] Agent [facility] Communication Bright Barakat Adult Child Health Care Dustyn t (per Health Care Power of Edge Baster document) Care Teams Client Delivery Manager Relationship Specialty Start Date End Date Florentin Calvo DO [address] [place] [address] PCP - General Internal Medicine 03/24/13 documented as of this encounter
--- OUTSIDE RECORDS SUMMARY | 2023-10-10 09:33 | External Medical Summary ---
Author Name Unknown Address Unknown Organization [id number] [address] [place] [address] Laboratory Report Ordering Provider Test Date Status PARVIZ ORR 10/06/2023 08:43:20 Final Observation Date Value Abnormality Reference (Units ) Status WBC, Total 10/06/2023 08:43:20 8.64 4.00-10.8 0 (K/uL) Final RBC 10/06/2023 08:43:20 2.92 3.85-5.15 (M/uL) Final Hemoglobin 10/06/2023 08:43:20 9.1 Below low normal 12 .0-15.3 (g/dL) Final HCT 10/06/2023 08:43:20 28.3 Below low normal 36. 0-45.2 (%) Final MCV 10/06/2023 08:43:20 96.9 81.5-97.5 (fL) Final MCH 10/06/2023 08:43:20 31.2 27.0-34.0 (pg) Final MCHC 10/06/2023 08:43:20 32.2 32.0-36.0 (g/dL) Final RDW 10/06/2023 08:43:20 15.6 11.5-15.5 (%) Final Platelets 10/06/2023 08:43:20 202 140-400 (K /uL) Final MPV 10/06/2023 08:43:20 9.8 6.6-11.1 ( fL) Final Performing Location [facility] [address] [place] [address]
--- OUTSIDE RECORDS SUMMARY | 2023-10-10 09:33 | External Medical Summary ---
Author Name Unknown Address Unknown Organization [id number]:[facility] [place] [address] [place] [address] Laboratory Report Ordering Provider Test Date Status PARVIZ ORR 10/06/2023 08:43:20 Final Observation Date Value Abnormality Reference (Units ) Status SYNC LEUKOCYTES IN BLOOD BY AUTOMATED COUNT 10/06/2023 08:43:20 8.64 4.00-10.80 (K/uL) Final Neutrophils/100 leukocytes in Blood by Manual count 10/06/2023 08:43:20 73.0 40.0-75.0 (%) Final Lymphocytes/100 leukocytes in Blood by Manual count 10/06/2023 08:43:20 11.0 Below low normal 18.0-42.0 (%) Final Monocytes/100 leukocytes in Blood by Manual count 10/06/2023 08:43:20 9.0 1.0-11.0 (%) Final Eosinophils/100 leukocytes in Blood by Manual count 10/06/2023 08:43:20 7.0 Above high normal 0.0-6.0 (%) Final Neutrophils [#/volume] in Blood by Manual count 10/06/2023 08:43:20 6.31 1.80-7.70 (K/uL) Final Lymphocytes [#/volume] in Blood by Manual count 10/06/2023 08:43:20 0.95 Below low normal 1.00-4.80 (K/uL) Final Monocytes [#/volume] in Blood by Manual count 10/06/2023 08:43:20 0.78 0.00-1.10 (K/uL) Final Eosinophils [#/volume] in Blood by Manual count 10/06/2023 08:43:20 0.60 0.00-0.70 (K/uL) Final Nucleated erythrocytes/100 leukocytes [Ratio] in Blood by Automated count 10/06/2023 08:43:20 2 Above high normal <=0 (/100 WBCs) Final Performing Location [facility] [place] [address] [place] [address]
--- OUTSIDE RECORDS SUMMARY | 2023-10-10 09:33 | External Medical Summary | Summary of Care ---
Author Name Unknown Organization [facility] Address [address] [place] [address] Phone [phone] Care Team Providers Care Surveillance Sensor Operator Name Role Phone Florentin Calvo DO Primary Care Provider Reason for Visit * Reason Comments Follow Up Encounter Details Date Type Department Care Team (Late st Contact Info) Description 10/06/2023 8:30 AM EST [facility] [address] Stephen Hewitt DO 132 [facility] [place] [address] 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*; Cardiac pacemaker in situ; SSS (sick sinus syndrome) ([facility]); Nonrheumatic mitral valve regurgitation; Status post implantation of mitral valve leaflet clip; Paroxysmal atrial fibrillation (HCC) Allergies Active Allergy [...] hemoglobin A1c goal of less than 7.0% ([facility]) Use up to 1 times a [...] Additional Information Patient not taking.Reported on 10/06/2023 [facility] In Vitro Strip (Glucose Blood) Test blood [...] Oral Tablet (Lipitor)Indication s:PVD (peripheral vascular disease) ([facility]),Type 2 diabetes mellitus with stage 3a chronic kidney disease and hypertension ([facility]) TAKE ONE TABLET BY MOUTH EVERY DAY DIRECTED 100 Tablet 3 03/31/2023 Active Ipratropium Dows 0.03 % Nasal Solution (Atrovent)Indicatio ns:Chronic rhinitis [...] bedtime. 90 Tablet 3 05/16/2023 Active Tiotropium Dows-Olodaterol 2.5-2.5 MCG/ACT Inhalation Aerosol Solution (Stiolto Respimat) [...] mitral valve clip implantation 03/06/2023 Atherosclerosis of [place] 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 02/13/2023 [...] Obstructive sleep apnea of adult 09/09/2014 Overview: [facility] REPRESENTATIVE Last Assessment & Plan: Now just using [...] Sign Reading Time Taken Comments Blood Pressure 124/66 10/06/2023 8:21 AM EST Pulse 68 10/06/2023 8:21 AM EST Temperature - - Respiratory Rate 16 10/06/2023 8:21 AM EST Oxygen Saturation - - Inhaled Oxygen Concentration - - Weight 74.4 kg (164 lb) 10/06/2023 8:21 AM EST Height - - Body Mass Index 27.29 09/29/2023 9:35 AM EST documented in this encounter Functional Status Functional Status Response Date of Assess ment Are you deaf or do you have serious difficulty hearing? [place] can hear w/ hearing aid 03/07/2023 Are [...] Progress Notes * Stephen Hewitt, DO - 10/06/2023 8:34 AM EST Cardiology Outpatient Follow-up Inga Barakat is a 83 year old female who is seen for follow-up of atrial fibrillation. HPI: This is an 83-year-old female who is here today with her son. She has a complex past medical history. Especially recently. I will try to summarize the best I can. She is status post mitral clip last year. She has a history of paroxysmally atrial fibrillation and was anticoagulated. The patient presented on several occasions with TIA type symptoms. She was also noted to be anemic and the decision was made for the patient to have a Watchman that was placed in July of last year. The patient following that procedure presented with an additional TIA like symptoms but was found to be profoundlyanemic. Her MRI and further workup for a stroke were negative. Her symptoms resolved after blood tra nsfusions and it was felt that the TIA like symptoms were related to her profound anemia. At that point she had been on Plavix and aspirin and it was decided to discontinue the Plavix and continue with aspirin. In August of this year she underwent a follow-up BRENDAN for her Watchman procedure and wasnoted that there was a large thrombus on the device. At that point her aspirin was discontinued andshe was started on Eliquis 2.5 mg twice daily. A planned repeat T will be completed in the near future. There are also plans for her to be evaluated by the GI service perhaps with an endoscopy and colonoscopy in the near future. Today she has no ongoing complaints and actually feels well. Past Medical History: Diagnosis Date Anemia [...] wrist Obstructive sleep apnea of adult 09/09/2014 [facility] REPRESENTATIVE Pleural effusion Pulmonary arterial hypertension (HCC) Pure hypercholesterolemia 07/02/2021 PVD (peripheral vascular disease) ([facility]) 05/15/2022 Retinopathy Secondary hyperparathyroidism, renal ([facility]) 12/17/2018 Severe mitral valve regurgitation 10/30/2022 Severe tricuspid regurgitation 11/18/2022 Spinal stenosis 07/2002 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 claudication 03/24/2013 Vertigo 03/24/2013 Patient Active Problem List Diagnosis Code Type 2 diabetes mellitus with hemoglobin A1c goal of less than 7.0% ([facility]) E11.9 Vertigo R42 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 claudication M48.061 Hypothyroidism E03.9 Displacement of cervical intervertebral disc without myelopathy M50.20 Meniere's disease H81.09 Paroxysmal atrial fibrillation ([facility]) I48.0 Obstructive sleep apnea of adult G47.33 Tremor R25.1 Iron deficiency anemia D50.9 Angiodysplasia of colon with hemorrhage K55.21 Acquired renal cyst N28.1 Type 2 diabetes mellitus with polyneuropathy ([facility]) E11.42 Secondary hyperparathyroidism, renal ([facility]) N25.81 Pulmonary hypertension ([facility]) I27.20 Current moderate episode of major depressive disorder without prior episode ([facility]) F32.1 Moderate persistent asthma without complication J45.40 Gastro-esophageal reflux disease without esophagitis K21.9 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 ([facility]) E11.319 Pure hypercholesterolemia E78.00 Aneurysm of left carotid artery ([facility]) I72.0 Aortic atherosclerosis ([facility]) I70.0 Chronic kidney disease, stage 3b ([facility]) N18.32 PVD (peripheral vascular disease) ([facility]) I73.9 Chronic diastolic CHF (congestive heart failure) ([facility]) I50.32 Type 2 diabetes mellitus with stage 3b chronic kidney disease, without long-term current use of insulin ([facility]) E11.22, N18.32 Cardiac pacemaker in situ Z95.0 History of endometrial cancer Z85.42 Normocytic anemia D64.9 Primary osteoarthritis of right knee M17.11 Severe tricuspid regurgitation I07.1 History of TIA (transient ischemic attack) Z86.73 Atherosclerosis of [place] coronary artery without angina pectoris I25.10 S/P mitral valve clip implantation Z98.890, Z95.818 Presence of Watchman left atrial appendage closure device Z95.818 Past Surgical History: Procedure Laterality Date COLONOSCOPY, DIAGNOSTIC (RECTUM) 10/12/2014 inflammatory tissue on bx, diverticulosis/[facility] COLONOSCOPY, DIAGNOSTIC (RECTUM) 01/05/2016 diverticulosis, multiple non-bleeding colonic angioectasias COLONOSCOPY, DIAGNOSTIC (RECTUM) 04/15/2016 angiodysplastic lesion, diverticulosis/COLONOSCOPY FLEXIBLE PROXIMAL DIAGNOSTIC performed by Izzy Stone MD at ENDOSCOPY [facility] COLONOSCOPY, DIAGNOSTIC (RECTUM) 11/10/2020 Hemorrhoids, multi polyps, diverticulosis in sigmoid colon/ biopsy show adenomatous polyp/ COLONOSCOPY FLEXIBLE PROXIMAL DIAGNOSTIC performed by Miane Stone MD at [facility] COLONOSCOPY, DIAGNOSTIC (RECTUM) 03/11/2022 poor prep / [facility] CORONARY ANGIOGRAPHY W/RIGHT+LEFT CATH Right 01/24/2023 CORONARY ANGIOGRAPHY W/RIGHT+LEFT CATH performed by Wilbur Rivera MD at [facility] CYSTOSCOPY 06/2012 EGD, FLEXIBLE, DIAGNOSTIC 10/12/2014 normal bx, HH/[facility] EGD, FLEXIBLE, DIAGNOSTIC 01/05/2016 ESOPHAGOGASTRODUODENOSCOPY (EGD), FLEXIBLE, TRANSORAL, DIAGNOSTIC performed by Manie Stone MD at [facility] EGD, FLEXIBLE, DIAGNOSTIC 03/11/2022 Multiple small non-bleeding fundic gland polyps / [facility] EGD, FLEXIBLE, DIAGNOSTIC 12/09/2022 mild-mod inflammation / [facility] LAPAROSCOPY TOTAL HYSTX, UTERUS 250GM OR LESS TUBE/OVARY N/A 02/22/2020 ROBOTIC LAPAROSCOPIC HYSTERECTOMY REMOVAL TUBES AND OVARIES FOR UTERUS 250GM OR LESS performed by Florentin Perez MD at [facility] LAPAROSCOPY; CHOLECYSTECTOMY N/A 06/06/2020 LIGATE/CUT OVIDUCT(S) MAMMOGRAM BREAST NEEDLE BIOPSY CORE LEFT Left 09/19/2015 benign NECK SPINE FUSION (CERV, BELOW C2) 1993 PATIENT EDU, LUMBAR LAMINECTOMY 2001 1996 too PERC CLOSURE TRANSCATH LEFT ATRIAL APPENDAGE W/ENDOCARDIAL IMPLANT Bilateral 07/31/2023 PERCUTANEOUS CLOSURE LEFT ATRIAL APPENDAGE IMPLANT performed by Wilbur Rivera MD at [facility] [place] TONSILLECTOMY PRIMARY/SECONDARY LESS THAN AGE 12 Bilateral REPAIR RUPTURED ROTATOR CUFF, ACUTE Left 08/08/2015 SINUS SURGERY PROCEDURE NEC 1994 TRANSCATH REPAIR MITRAL VALVE, INITIAL Bilateral 03/06/2023 TRANSCATHETER MITRAL VALVE REPAIR performed by Wilbur Rivera MD at [facility] Family History Problem Relation Age of Onset Neurological Disorder Mother parkinson Eye Problems Mother glaucoma Diabetes Father 30 1967 Cancer Brother brain, lung Eye Problems None denies fm: Blindness, AMD, RD Stomach cancer Grandmother (Maternal) Social History Tobacco Use Smoking status: Former Packs/day: 1.25 Years: 18.00 Additional pack years: 0.00 Total pack years: 22.50 Types: Cigarettes Quit date: 12/29/1978 Years since quittin.8 Passive exposure: Past Smokeless tobacco: Never Vaping [...] Azithromycin Other (Please comment) QTC prolongation at [facility] Nickel Swelling Other reaction(s): Unknown Current Outpatient Medications Medication Sig Dispense Refill Acetaminophen 325 MG Oral Tablet (Tylenol) Take 2 Tablets by mouth every 6 hours as needed. 100 Tablet 0 Vitamin D3 50 MCG (2000 UT) Oral Capsule Take 2 Capsules by mouth in the morning. 60 Capsule 5 Vitamin B-12 100 MCG Oral Tablet (vitamin B-12) Take 1 Tablet by mouth in the morning. 30 Tablet 3 Sertraline HCl 100 MG Oral Tablet (Zoloft) Take one and one-half Tablets by mouth in the morning. 150 Tablet 1 Ferrous Sulfate 325 (65 Fe) MG Oral Tablet (Feosol) Take 1 Tablet by mouth daily with breakfast. 100 Tablet 1 Atorvastatin Calcium 20 MG Oral Tablet (Lipitor) TAKE ONE TABLET BY MOUTH EVERY DAY DIRECTED 100Tablet 3 Ipratropium Dows 0.03 % Nasal Solution (Atrovent) Administer 2 Sprays into nostril in the morning and 2 Sprays before bedtime. 90 mL 3 Pantoprazole Sodium 40 MG Oral Tablet Delayed Release (Protonix) Take 1 Tablet by mouth in the morning and 1 Tablet by mouth in the evening. 200 Tablet 1 Allopurinol 300 MG Oral Tablet (Zyloprim) Take 1 Tablet by mouth at bedtime. 90 Tablet 3 Tiotropium Dows-Olodaterol 2.5-2.5 MCG/ACT Inhalation Aerosol Solution (Stiolto Respimat) Inhale2 Puffs by mouth in the morning. 12 g 3 Levothyroxine Sodium 125 MCG Oral Tablet (Levoxyl) TAKE ONE TABLET BY MOUTH FIRST THING IN THE MORNING 100 Tablet 3 Torsemide 10 MG Oral Tablet (Demadex) Take 1 Tablet by mouth in the morning. 100 Tablet 3 Folic Acid 1 MG Oral Tablet TAKE ONE TABLET BY MOUTH EVERY MORNING 100 Tablet 1 Montelukast Sodium 10 MG Oral Tablet (Singulair) TAKE ONE TABLET BY MOUTH AT BEDTIME 100 Tablet 3 Apixaban 2.5 MG Oral Tablet (Eliquis) Take 1 Tablet by mouth in the morning and 1 Tablet before bedtime. 90 Tablet 1 [employer] Verio w/Device Kit Use up to 1 times a day. E11.9 1 Kit 0 Levalbuterol Tartrate 45 MCG/ACT Inhalation Aerosol (Xopenex HFA) Inhale by mouth 1 Puff every 4 hours as needed for Wheezing. (Patient not taking: Reported on 10/06/2023) 15 g 12 [employer] In Vitro Strip (Glucose Blood) Test blood sugars up to 2 times a day E11.9 200 Strip3 No current facility-administered medications for this visit. ROS: Review of Systems: See HPI for pertinent positives. All other review of systems is negative. PHYSICAL EXAMINATION BP 124/66 | Pulse 68 | Resp 16 | Wt 74.4 kg (164 lb) | BMI 27.29 kg/m | BSA 1.85 m Body mass index is 27.29 kg/m. General: no acute distress and stated [...] Data Review: Latest Reference Range & Units 09/29/23 10:06 Sodium 135 - 146 mmol/L 139 Potassium 3.5 - 5.1 mmol/L 5.1 Chloride 98 - 107 mmol/L 103 CO2 22 - 32 mmol/L 26 BUN 6 - 20 mg/dL 38 (H) Creatinine 0.5 - 1.0 mg/dL 1.8 (H) Estimated Glomerular Filtration Rate >=60 mL/min 28 (L) Anion Gap 7 - 15 mmol/L 10 Glucose 70 - 120 mg/dL 126 (H) Calcium 8.4 - 10.2 mg/dL 9.9 Protein 6.0 - 8.3 g/dL 6.3 CBC Rpt ! CBC WITH WBC DIFFERENTIAL Rpt ! WBC 4.00 - 10.80 K/uL 8.56 HGB 12.0 - 15.3 g/dL 10.3 (L) HCT 36.0 - 45.2 % 33.0 (L) MCV 81.5 - 97.5 fL 100.3 PLT 140 - 400 K/uL 229 Absolute Neutrophils 1.80 - 7.70 K/uL 6.40 Absolute Lymphocytes 1.00 - 4.80 K/ul 0.86 (L) Absolute Monocytes 0.00 - 1.10 K/uL 0.77 Absolute Eosinophils 0.00 - 0.70 K/uL 0.43 Absolute Basophils 0.00 - 0.20 K/uL 0.05 IRON SCREEN, INCLUDING TIBC Rpt Iron 33 - 151 ug/dL 77 Iron Binding Capacity 250 - 425 ug/dL 259 Transferrin Saturation Percent 15 - 55 % 30 Ferritin 13 - 150 ng/mL 986 (H) Albumin 3.8 - 5.0 g/dL 3.9 AST 10 - 35 U/L 49 (H) ALT 10 - 35 U/L 27 Alkaline Phosphatase 35 - 130 U/L 204 (H) Bilirubin, Total <=1.2 mg/dL 0.4 (H): Data is abnormally high (L): Data is abnormally low !: Data is abnormal Rpt: View report in Results Review for more information Impression: 1. Status post mitral valve clip for severe mitral regurgitation and heart failure. 2. Paroxysmallyatrial fibrillation 3. TIA type symptoms possibly related to profound anemia 4. Status post Watchman 5. Unknown etiology for anemia but seems to have stabilized with iron therapy 6. Sick sinus syndrome status post permanent pacemaker 7. Chronic kidney disease Plan: At this point the patient is clinically stable. She will continue her current medications and we will await the follow-up BRENDAN as well as GI workup regarding the thrombus on her Watchman device and continued anemia. I plan follow-up in 3 months or earlier if needed. This chart was completed in part utilizing [employer] Speech Voice Recognition Software. Grammatical errors, random word insertions, prounoun errors, and incomplete sentences are an occasional consequence of this system due to software limitations, ambient noise, and hardware issues. Any formal questions or concerns about the content, text, or information contained within the body of this dictation should be directly addressed to the provider for clarification. I spent a total of 40-54 minutes (exact time 42 mins) on the date of service in preparation, delivery, and documentation of the care provided to Inga Barakat excluding any time spent in the performance of separately billed services. Stephen Hewitt DO Cardiology[address] [address] 10/06/2023 documented in this encounter Nursing Notes * Bahman Hernandez RN - 10/06/2023 8:21 AM EST Examination Room: room 16 Name: Inga Barakat Date of : (1940). Reason for Visit: for follow up Interim Hospitalization(s): denies Problems/Concerns: denies Chest Pain/SOB: denies [facility] Discussed: Yes My [facility] is a way you can [...] Description 10/06/2023 9:10 AM EST Laboratory [facility], [facility] [address] [facility] [address] [place] [address] Iron deficiency anemia, unspecified iron deficiency anemia type 10/14/2023 2:30 PM EST Office Visit Hematology/Oncology [facility] [address] [place] [address] Nereyda Metz CRNP [address] [place] [address] 10/29/2023 10:00 AM EST Office Visit Family Practice [address] [place] [address] [address] [place] [address] Florentin Calvo, [address] [place] [address] 11/03/2023 8:00 AM EDT Appointment Cardiac Studies [facility], [address] [address] 11/03/2023 1:30 PM EDT Office Visit Gynecology/Oncology, [address] [address] Vanessa Elena PA-C [address] [place] [address] 11/04/2023 11:00 AM EDT Office Visit Otolaryngology [facility] 132 [facility] [place] [address] Cheri Castillo PA-C 132 [facility] [place] [address] 11/11/2023 8:45 AM EDT Office Visit Hematology/Oncology [facility] 200 [facility] [place] [address] Hasmukh Hood MD 200 [facility] [address] 12/08/2023 2:20 PM EDT Office Visit Family Practice [address] [place] [address] 293 [facility] [place] [address] Florentin Calvo DO 293 [facility] [place] [address] 01/21/2024 2:40 PM EDT Office Visit Ot[facility]ology [facility] [place] [address] Cheri Castillo PA-C 132 [facility] [address] 02/17/2024 3:30 PM EDT Office Visit Nephrology, [facility] [address] [facility] [place] [address] ZeMichelle chiu PA-C 200 [facility] [address] 06/03/2024 2:15 PM EDT Office Visit Ophthalmology, [facility] 132 [facility] [place] [address] Wilbur Benavides, DO [address] [facility] [place] [address] 08/09/2024 1:00 PM EST Nurse Only Ancillary [address] [place] [address] [facility] [place] [address] College, Nurse Annual Wellness Visit [address] [facility] 293 [facility] [place] [address] Health Maintenance Due Date Last Done Comments Hepatitis B (1 of 3 - Risk 3-dose series) 2000 HbA1c 02/14/2024 2023, 01/25, 08/27/2022, Additional history exists Albumin/Creatinine Ratio 02/22/2024 023, 05/01/2022, 10/26/2021, Additional history exists GFR 03/29/2024 09/29/2023, 08/26, 09/15/2023, Additional history exists Diabetic Eye Exam 05/22/2024 05/22/2023, , 05/22/2023, Additional history exists CKD PHOS USE SMARTSET 43651 08/19/202407/26, 05/01/2022, 04/03/2022, Additional history exists Diabetic Foot Exam 09/15/2024 09/15/2023, 0 10/01/2022, 10/26/2021, Additional history exists TSH 09/15/2024 09/15/2023, 08/27, 08/27/2022, Additional history exists CKD HGB USE SMARTSET 41335 09/29/202409/29, 09/29/2023, 09/22/2023, Additional history exists Depression [...] this encounter Medical Devices Implanted Type Area Cruller Maker Machine Device Identifier Shelf Expiration Date Model / Serial / Lot Cath Thermodilution 6fr - [id number] Implanted:Qty: 1 on 01/24/2023 by Wilbur Rivera MD at [facility] [employer] [id number] 10/15/2024 [id number] / / [id number] Mirtaclip G4 - [id number] Implanted:Qty: 1 on 03/10/2023 at [facility] [employer] 11/19/2023 [id number] / / [id number] Device Watchman Flx 31mm - [id number] Implanted:Qty: 1 on 07/31/2023 by Wilbur Rivera MD at [facility] [employer] : INTRV CARD [id number] 12/02/2025 [id number] documented as of this encounter Visit Diagnoses Diagnosis 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- Primary Cardiac pacemaker in situ SSS (sick sinus syndrome) (HCC) Sinoatrial node dysfunction Nonrheumatic mitral valve regurgitation Status post implantation of mitral valve leaflet clip Paroxysmal atrial fibrillation (HCC) Atrial fibrillation Iron deficiency anemia, unspecified iron deficiency anemia type documented in this encounter Advance Directives Documents on File Type Date Recorded Patient Enterprise Sales Person Expl anation Advance Directives and Living Will 11/29/2022 ADVANCE DIRECTIVE / LIVING WILL Power of Engraver Hand [employer] Metals 11/29/2022 POWER OF A TTORNEY Advance Directives and Living Will 10/24/2014 ADVANCE DIRECTIVE / LIVING WILL Power of Engraver [employer]als 10/24/2014 POWER OF A TTORNEY Latest Code [...] the patient have Health Care Power of Engraver Hand Hard Metals? No Code Status History Code Status Date [...] Agents on File Name Relationship Healthcare Agent [facility] p Communication [facility] Adult Child Health Care Agen t (per Health Care Power of Engraver Hand Hard Metals document) Care Teams Surveillance Sensor Operator Relationship Specialty Start Date End Date Florentin Calvo DO [address] [facility] [place] [address] PCP - General Internal Medicine 03/24/13 documented as of this encounter
--- OUTSIDE RECORDS SUMMARY | 2023-10-10 09:33 | External Medical Summary | Summary of Care ---
Author Name Unknown Organization [facility] Address [address] [place] [address] Phone [phone] Care Team Providers Care Authorization Nurse Name Role Phone Florentin Calvo DO Primary Care Provider [phone] Reason for Visit * Reason Onset Date Comments Advice 10/08/2023 tests Information 10/08/202310/08 Encounter Details Date Type Department Care Team (Late st Contact Info) Description 10/08/2023 Telephone Family Practice 65 [facility] [address] [place] [address] Florentin Calvo DO [address] [place] [address] Advice (tests); Information (10/08) Allergies Active Allergy Reactions Criticality Noted Date Comments Azithromycin Other (Please comment) 12/04/2021 QTC prolongation at [facility] Celecoxib Hives,Rash High 03/24/2013 Other reaction(s): Rash/Hives/Itching. [...] as of this encounter (statuses as of 10/09/2023) Medications Medication Sig Dispensed Refills Start Date End Date Status PicaHome.comTouch [email or web address] w/Device KitIndications:Type 2 diabetes mellitus with hemoglobin [...] Additional Information Patient not taking.Reported on 10/06/2023 RewardsPayuch [email or web address] In Vitro Strip (Glucose Blood) Test blood [...] (Lipitor)Indication s:PVD (peripheral vascular disease) ([facility]),Type 2 diabetes mellitus with stage 3a chronic kidney disease and hypertension ([facility]) TAKE ONE TABLET BY MOUTH EVERY DAY DIRECTED 100 Tablet 3 03/31/2023 Active Ipratropium Et[place] 0.03 % Nasal Solution (Atrovent)Indicatio ns:Chronic rhinitis [...] bedtime. 90 Tablet 3 05/16/2023 Active Tiotropium [place]-Olodaterol 2.5-2.5 MCG/ACT Inhalation Aerosol Solution (Stiolto Respimat) [...] as of this encounter (statuses as of 10/09/2023) Active Problems Problem Noted Date Diagnosed Date Presence of Watchman left atrial appendage closu re device 07/31/2023 S/P mitral valve clip implantation 03/06/2023 Atherosclerosis of [place] 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 02/13/2023 Last Assessment & Plan: Continue statin, sotalol. 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 No-TELLER can hear w/ hearing aid 03/07/2023 Are [...] Telephone Encounter - Hilda Awad LPN - 10/09/2023 10:31 AM EST Will do, son will be stopping by to crab picker stool containers. * Telephone Encounter - Grace Arnold OSA - 10/09/2023 10:12 AM EST Pt is asking if she can do all her blood work on Friday as she will be going to , She was not sure of when to have those labs done. Please call patient at [phone] to advise. * Telephone Encounter - Ania Kebede LPN - 10/08/2023 4:35 PM EST Call placed to patient and relayed information from Dr. Calvo. Pt acknowledged understanding. Agreeable to blood work and stool specimens. Agreeable to OV. Lab orders pended help desk team leader - please contact pt to assist with scheduling appt with Dr. Calvo early next week. Thank you * Telephone Encounter - Florentin Calvo DO - 10/08/2023 3:04 PM EST Check CMP and CBC with diff Hgba1c was just done 08/15/2023- it is too soon to repeat Check Stool culture, and Stool for C. Diff Needed visit * Telephone Encounter - Ania Kebede LPN - 10/08/2023 2:40 PM EST Call placed to patient. She reports she was here recently for OV and reported loose BM's at that visit. Reports loose stools/diarrhea continues, just comes out, reports fecal incontinence. States this has been going on for a long time. States she has seen GI in past. Reports she is changing her clothing every day d/t incontinence and voices frustration. States 6-7 out of last 9 days she has had diarrhea/loose stools. States she is trying to drink enough fluids. Reports she is not eating well; afraid to put anythingin her mouth. States she is trying Pedialyte. Denies fever, vomiting. Requesting A1c and renal function tests. Reports she has a dentist appt at 3:30 today. Please advise. * Telephone Encounter - Grace Jeffries OSA - 10/08/2023 2:32 PM EST James calero Wants an A1C for Friday And Kidney function tests Going to Dentist at 3:30 Please call documented in this encounter Plan of Treatment Upcoming Encounters Date Type Department Care Team (Late st Contact Info) Description 10/14/2023 2:30 PM EST Office Visit Hematology/Oncology [facility] 200 [facility], [place] [address] Nereyda Metz CRNP 400 [facility] [place] [address] 10/14/2023 3:40 PM EST Office Visit Family Practice [address] [place] [address] 293 [place] [phone] Florentin Calvo, 293 [facility] [place] [address] 10/29/2023 10:00 AM EST Office Visit [address] 293 [place] [phone] Florentin Calvo, 293 [place] [address] 11/03/2023 8:00 AM EDT Appointment Cardiac Studies [facility], [place] [address] [place], [place] [id number] 11/03/2023 1:30 PM EDT Office Visit Gynecology/Oncology, [place] [address] [place] [address] Vanessa Elena PA-C [address] [place], [place] [phone] 11/04/2023 11:00 AM EDT Office Visit Otolaryngology [facility] [address] [place] [address] Cheri Castillo PA-C 132 [facility] [place] [address] 11/11/2023 8:45 AM EDT Office Visit Hematology/Oncology [facility] [address] Hasmukh Hood MD 200 [facility] [address] 12/08/2023 2:20 PM EDT Office Visit Family Practice 65 [facility] 293 [place] [address] Florentin Calvo DO 293 [place] [address] 01/21/2024 2:40 PM EDT Office Visit Otolaryngology [facility] 132 [facility] [place] [address] Cheri Castillo PA-C 132 [facility] [place] [address] 02/17/2024 3:30 PM EDT Office Visit Nephrology, [facility] 200 [facility] [address] ZeMichelle chiu PA-C 200 [facility] [address] 06/03/2024 2:15 PM EDT Office Visit Ophthalmology, [facility] 132 [facility] [place] [address] Wilbur Benavides, DO 21 [place] [address] 08/09/2024 1:00 PM EST Nurse Only Ancillary 65 [facility] 293 [facility], [place] [address] College, Nurse Annual Wellness Visit [address] [address] Scheduled Orders Name Type Priority Associated Diagnoses Orde r Schedule COMPREHENSIVE METABOLIC PANEL Lab Routine Diarrhea Expected: 10/09/2023 (Approximate), Expires: 10/07/2024 CBC WITH WBC DIFFERENTIAL Lab Routine Diarrhea Expected: 10/09/2023 (Approximate), Expires: 10/08/2024 GASTROINTESTINAL PATHOGEN PANEL, STOOL Lab Routine Diarrhea Expected: 10/09/2023 (Approximate), Expires: 10/07/2024 CLOSTRIDIUM DIFFICILE, PCR Lab Routine Diarrhea Expected: 10/09/2023 (Approximate), Expires: 10/07/2024 Health Maintenance Due Date Last Done Comments Hepatitis B (1 of 3 - Risk 3-dose series) 2000 HbA1c 02/14/2024 2023, 01/25, 08/27/2022, Additional history exists Albumin/Creatinine Ratio 02/22/2024 023, 05/01/2022, 10/26/2021, Additional history exists GFR 03/29/2024 09/29/2023, 08/26, 09/15/2023, Additional history exists Diabetic Eye Exam 05/22/2024 05/22/2023, , 05/22/2023, Additional history exists CKD PHOS USE SMARTSET 95460 08/19/202407/26, 05/01/2022, 04/03/2022, Additional history exists Diabetic Foot Exam 09/15/2024 09/15/2023, 0 10/01/2022, 10/26/2021, Additional history exists TSH 09/15/2024 09/15/2023, 08/27, 08/27/2022, Additional history exists Depression Screening 09/29/2024 09/29/2023 CKD HGB USE SMARTSET 22292 10/06/202410/06, 10/06/2023, 09/29/2023, Additional history exists DXA Scan 05/07/2025 05/07/2021, [...] this encounter Medical Devices Implanted Type Area Shot Core Drill Operator Helper Device Identifier Shelf Expiration Date Model / Serial / Lot Cath Thermodilution 6fr - [id number] Implanted:Qty: 1 on 01/24/2023 by Wilbur Rivera MD at [facility] [employer] [id number] 10/15/2024 [id number] / / [id number] Mirtaclip G4 - [id number] Implanted:Qty: 1 on 03/10/2023 at [facility] [employer] 11/19/2023 [id number] / / [id number] Device Watchman Flx 31mm - [id number] Implanted:Qty: 1 on 07/31/2023 by Wilbur Rivera MD at [facility] [employer] : INTRV CARD [id number] 12/02/2025 [id number] documented as of this encounter Visit Diagnoses Diagnosis Diarrhea- Primary documented in this encounter Advance Directives Documents on File Type Date Recorded Patient Recreation Clerk Expl anation Advance Directives and Living Will 11/29/2022 ADVANCE DIRECTIVE / LIVING WILL Power of Foreign Exchange Trader 11/29/2022 POWER OF A TTORNEY Advance Directives and Living Will 10/24/2014 ADVANCE DIRECTIVE / LIVING WILL Power of Foreign Exchange Trader 10/24/2014 POWER OF A TTORNEY Latest Code [...] the patient have Health Care Power of Foreign Exchange Trader? No Code Status History Code Status Date [...] Relationshi p Communication [facility] Adult Child Health Care Agen t (per Health Care Power of Foreign Exchange Trader document) Care Teams Authorization Nurse Relationship Specialty Start Date End Date Florentin Calvo DO [address] [place] [address] PCP - General Internal Medicine 03/24/13 documented as of this encounter
--- OUTSIDE RECORDS SUMMARY | 2023-10-10 09:33 | External Medical Summary ---
Author Name Unknown Address Unknown Organization K01:[facility] [place] [address] [place] [address] Laboratory Report Ordering Provider Test Date Status PARVIZ ORR 10/06/2023 08:43:20 Final Observation Date Value Abnormality Reference (Units ) Status Ferritin 10/06/2023 08:43:20 850 Above high normal 13 -150 (ng/mL) Final Postmenopausal women have hi gher ferritin levels than pre-menopausal women. The above reference interval is based on pre-menopausal women. Performing Location [facility] [place] [address] [place] [address]
--- OUTSIDE RECORDS SUMMARY | 2023-10-10 09:33 | External Medical Summary | Summary of Care ---
Author Name Unknown Organization [facility] Address [address] [place] [address] Phone [phone] Care Team Providers Care Operational Intelligence Analyst Name Role Phone Florentin Calvo DO Primary Care Provider [phone] Reason for Referral * Precert (Within 10 days (routine)) - Authorized Specialty Diagnoses / Procedures Referred By Contac t Referred To Contact Sleep Disorders Diagnoses Obstructive sleep apnea CSA (central sleep apnea) Procedures SLEEP STUDY, W/ CPAP (TREATMENT SETTINGS) Karen Berg CRNP [address] [facility] [place] [address] Referral ID Status Reason Start Date Expiration Date V isits Requested Visits Authorized [id number] Authorized 12/18/2022 999 [id number] Reason for Visit * Reason Onset Date Comments Appointment 12/17/2022 Encounter Details Date Type Department Care Team (Late st Contact Info) Description 12/17/2022 Telephone Sleep Disorders [facility] [place] [phone] Karen Berg CRNP [address] [facility] [place] [address] Appointment Allergies Active Allergy Reactions Criticality Noted Date Comments Azithromycin Other (Please comment) 12/04/2021 QTC prolongation at [facility] Celecoxib Hives,Rash High 03/24/2013 [...] as of this encounter (statuses as of 10/01/2023) Medications Medication Sig Dispensed Refills Start Date End Date Status OneTouch Verflorinda w/Device KitIndications:Ty pe 2 diabetes mellitus with hemoglobin A1c goal of less than 7.0% ([facility]) Use up to 1 times a day. E11.9 1 Kit 0 Active Acetaminophen 325 MG Oral Tablet [...] 180 Tab 1 0 03/18/20 23 Discontinued Aspirin 81 MG Oral Tablet Delayed Release Take 1 Tablet by mouth daily. 0 09/18/19 24 Discontinued(Med ication List Clean Up) Sotalol HCl 80 MG Oral Tablet (Betapace)Indicat ions:Chronic atrial fibrillation (HCC) Take by mouth 0.5 Tablets in the morning AND 0.5 Tablets before bedtime. 0.5 tablet twice daily. 90 Tablet 3 2 04/03/20 22 Discontinued(Leg acy prescription brought in as discontinued) OneTouch Delica Plus [id number] USE TWO TIMES A DAY DIRECTED 200 Each 3 2 04/30/20 22 Discontinued(Leg acy prescription brought in as discontinued) Ipratropium [place] 0.03 % Nasal Solution Administer into each [...] Oral Tablet (Lipitor)Indicati ons:PVD (peripheral vascular disease) (HCC),Type 2 diabetes mellitus [...] ons:Dysfunction of left eustachian tube Administer 1 Benton into nostril in the morning and 1 Benton before bedtime. 30 mL 0 3 01/08/20 23 Discontinued([facility] List Clean Up) Levothyroxine Sodium 125 MCG [...] (Proventil) (2.5 MG/3ML) 0.083% inhalation solution 2.5 mgIndications:Paro xysmal atrial fibrillation (HCC),Hyperkalemia ,Asthma with severity to be determined,Pulmona ry hypertension (HCC),Typical atrial flutter (HCC) 2.5 mg NEBULIZER PRN 06/21/2022 06/21/2023 Ended Albuterol Sulfate (Proventil) (5 MG/ML) 0.5% *conc* inhalation solution 2.5 mgIndications:Paro xysmal atrial fibrillation (HCC),Hyperkalemia ,Asthma with severity to be determined,Pulmona ry hypertension (HCC),Typical atrial flutter (HCC) 2.5 mg NEBULIZER PRN 06/21/2022 06/21/2023 Ended Albuterol Sulfate (Proventil) (5 MG/ML) 0.5% *conc* inhalation solution 2.5 mgIndications:SOB (shortness of breath) 2.5 mg NEBULIZER PRN 10/29/2022 09/04/2023 Discontinued Albuterol Sulfate (Proventil) (2.5 MG/3ML) 0.083% inhalation solution 2.5 mgIndications:SOB (shortness of breath) 2.5 mg NEBULIZER PRN 10/29/2022 09/04/2023 Discontinued documented as of this encounter (statuses as of 10/01/2023) Active Problems Problem Noted Date Diagnosed Date Presence of Watchman left atrial appendage closu re device 07/31/2023 S/P mitral valve clip implantation 03/06/2023 Atherosclerosis of [place] 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 02/13/2023 Last Assessment & Plan: Continue statin, sotalol. 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: Now just using [...] as of this encounter (statuses as of 10/01/2023) Resolved Problems Problem Noted Date Diagnosed Date [...] as of this encounter (statuses as of 10/01/2023) Immunizations Name Administration Dates Next Due COVID-19 mRNA, LNP-s, No Pre serve, 2-Dose Series (Moderna) 06/23/2021,10/25/2020,09/28/2020 COVID-19, LNP-s, No Preserve , Larry-sucrose, Ages 12+ (Pfizer) 04/09/2022 COVID-19, MRNA-LNP, 23-24, P F, 30 MCG/0.3 mL, 12 YRS AND ABOVE, IM ([employer] Solutions-Comirnaty) 06/09/2023 Covid-19, Mrna, Lnp-s, Pf, B ivalent, 30 Mcg, IM, 12 yrs and above (HereOrThere) 09/10/2022 HEP A - Hepatitis A (Adult [...] encounter Miscellaneous Notes * Telephone Encounter - Aminata High, RADHA - 10/01/2023 5:45 PM EST Pt declined sleep study, see note on 06/12/23. * Telephone Encounter - Karen Berg CRNP - 06/01/2023 1:08 AM EDT See other encounter. * Telephone Encounter - Karen Berg CRNP - 12/18/2022 10:55 AM EDT Please submit orders for sleep testing to [facility]. * Telephone Encounter - Karen Berg CRNP - 12/17/2022 1:20 PM EDT Home BIPAP 13/5 b/u 13: rAHI 23.9 (all hypopneas) Recommend: Change to 15/7 and reassess Dedicated BIPAP S/T study documented in this encounter Plan of Treatment Upcoming Encounters Date Type Department Care Team (Late st Contact Info) Description 10/06/2023 8:30 AM EST Office Visit Cardiology, [facility] [address] [place] [address] Stephen Hewitt, [address] [place] [address] 10/14/2023 2:30 PM EST Office Visit Hematology/Oncology [facility] [address] [place] [address] Nereyda Metz CRNP [address] [place] [address] 10/29/2023 10:00 AM EST Office Visit Family [address] [place] [address] Florentin Calvo, 293 [facility] [address] 11/03/2023 8:00 AM EDT Appointment [facility], [address] [address] 11/03/2023 1:30 PM EDT Office Visit Gynecology/Oncology, [place] [address] [place] [address] Vanessa Elena PA-C [address] [place] [address] 11/04/2023 11:00 AM EDT Office Visit Otolaryngology [facility] 132 [place] [address] Cheri Castillo PA-C 132 [place] [address] 11/11/2023 8:45 AM EDT Office Visit Hematology/Oncology [facility] [address] [facility] [place], [place] [address] Hasmukh Hood MD [address] [facility] [place], [place] [address] 12/08/2023 2:20 PM EDT Office Visit Family [address] 293 [place] [address] Florentin Calvo, DO 293 [facility] [place] [address] 01/21/2024 2:40 PM EDT Office Visit Otolaryngology [facility] 132 [facility] [place] [address] Cheri Castillo PA-C 132 [facility] [place] [address] 02/17/2024 3:30 PM EDT Office Visit Nephrology, Jerri Zamora [address] [facility] [place] [address] Zemaitis, Michelle Amezquita PA-C [address] [place] [address] 06/03/2024 2:15 PM EDT Office Visit Ophthalmology, [facility] 132 [facility] [place] [address] Wilbur Benavides, [facility] [place] [address] 08/09/2024 1:00 PM EST Nurse Only Ancillary 65 [facility] 293 [place] [address] College, Nurse Annual Wellness Visit [address] [place] [address] Scheduled Orders Name Type Priority Associated Diagnoses Orde r Schedule SLEEP STUDY, W/ CPAP (TREATMENT SETTINGS) Procedures Routine Obstructive sleep apnea CSA (central sleep apnea) Ordered: 12/18/2022 Health Maintenance Due Date Last Done Comments Hepatitis B (1 of 3 - Risk 3-dose series) 2000 HbA1c 02/14/2024 2023, 01/25, 08/27/2022, Additional history exists Albumin/Creatinine Ratio 02/22/2024 023, 05/01/2022, 10/26/2021, Additional history exists GFR 03/29/2024 09/29/2023, 08/26, 09/15/2023, Additional history exists Diabetic Eye Exam 05/22/2024 05/22/2023, , 05/22/2023, Additional history exists CKD PHOS USE SMARTSET 76603 08/19/202407/26, 05/01/2022, 04/03/2022, Additional history exists Diabetic Foot Exam 09/15/2024 09/15/2023, 0 10/01/2022, 10/26/2021, Additional history exists TSH 09/15/2024 09/15/2023, 08/27, 08/27/2022, Additional history exists CKD HGB USE SMARTSET 48036 09/29/202409/29, 09/29/2023, 09/22/2023, Additional history exists Depression [...] encounter Medical Devices Implanted Type Area Animal Anatomy Teacher Device Identifier Shelf Expiration Date Model / Serial / Lot Cath Thermodilution 6fr - [id number] Implanted:Qty: 1 on 01/24/2023 by Wilbur Rivera MD at [facility] [place] [employer] [id number] 10/15/2024 [id number] / / [id number] Mirtaclip G4 - [id number] Implanted:Qty: 1 on 03/10/2023 at [facility] [place] [employer] 11/19/2023 [id number] / / [id number] Device Watchman Flx 31mm - [id number] Implanted:Qty: 1 on 07/31/2023 by Wilbur Rivera MD at [facility] [place] Prized : INTRV CARD [id number] 12/02/2025 [id number] / / [id number] documented as of this encounter Visit Diagnoses Diagnosis Obstructive sleep apnea- Primary Obstructive sleep apnea (adult) (pediatric) CSA (central sleep apnea) Unspecified sleep apnea documented in this encounter Additional Health Concerns Infection Onset Date Last Indicated Resolved Time Gastrointestinal Rule-Out 04/17/2023 04/17/2023 1:08 PM EDT C. difficile Rule-Out 04/17/2023 04/17/20232022 10:32 PM EDT documented as of this encounter Advance Directives Documents on File Type Date Recorded Patient Final Inspector Paper Expl anation Advance Directives and Living Will 11/29/2022 ADVANCE DIRECTIVE / LIVING WILL Power of Chief Fishery Division 11/29/2022 POWER OF A TTORNEY Advance Directives and Living Will 10/24/2014 ADVANCE DIRECTIVE / LIVING WILL Power of Chief Fishery Division 10/24/2014 POWER OF A TTORNEY Latest Code [...] the patient have Health Care Power of Chief Fishery Division? No Code Status History Code Status Date [...] Relationship Healthcare Agent Relationshi p Communication [facility] Adult Child Health Care Agen t (per Health Care Power of Chief Fishery Division document) Care Teams Operational Intelligence Analyst Relationship Specialty Start Date End Date Florentin Calvo DO [address] [place] [address] PCP - General Internal Medicine 03/24/13 documented as of this encounter
--- OUTSIDE RECORDS SUMMARY | 2023-10-10 09:34 | External Medical Summary | Summary of Care ---
Author Name Unknown Organization [facility] Address [address] [place] [address] Phone [phone] Care Team Providers Care Food Safety Coordinator Name Role Phone Florentin Calvo DO Primary Care Provider [phone] Reason for Visit * Reason Comments Dosage Adjustment In Person (Anticoag Cl inic) Medication Management Hospital Follow-Up Encounter Details Date Type Department Care Team (Late st Contact Info) Description 09/15/2023 3:20 PM [facility] Pharmacy Family Practice [address] [phone] College, Pharmacist [address] [place] [id number] Encounter for long-term (current) use of medications* Allergies Active Allergy Reactions Criticality Noted Date Comments Azithromycin Other (Please comment) 12/04/2021 QTC prolongation at [facility] [place] Celecoxib Hives,Rash High 03/24/2013 Other reaction(s): Rash/Hives/Itching. [...] as of this encounter (statuses as of 09/24/2023) Medications Medication Sig Dispensed Refills Start Date End Date Status FidbacksTouch Verio w/Device KitIndications:Ty pe 2 diabetes mellitus with hemoglobin A1c goal of less than 7.0% ([facility]) Use up to 1 times a day. E11.9 1 Kit 0 1 Active Acetaminophen 325 MG Oral Tablet (Tylenol) [...] for Wheezing. 15 g 12 2 Active OneTouch Verio In Vitro Strip (Glucose Blood) Test blood sugars up to 2 times a day E11.9 200 Strip 3 3 Active Vitamin B-12 100 MCG Oral Tablet (vitamin B-12) Take 1 Tablet by mouth in the morning. 30 Tablet 3 3 Active Sertraline HCl 100 MG Oral Tablet (Zoloft) Take one and one-half Tablets by mouth in the morning. 150 Tablet 1 3 Active Ferrous Sulfate 325 (65 Fe) MG Oral Tablet (Feosol) Take 1 Tablet by mouth daily with breakfast. 100 Tablet 1 3 Active Atorvastatin Calcium 20 MG Oral Tablet (Lipitor)Indicati ons:PVD (peripheral vascular disease) ([facility]),Type 2 diabetes mellitus with stage 3a chronic kidney disease and hypertension ([facility]) TAKE ONE TABLET BY MOUTH EVERY DAY DIRECTED 100 Tablet 3 3 Active Ipratropium [place] 0.03 % Nasal Solution (Atrovent)Indicat ions:Chronic rhinitis Administer 2 Sprays into nostril in the morning and 2 Sprays before bedtime. 90 mL 3 3 Active Pantoprazole Sodium 40 MG Oral Tablet Delayed Release (Protonix) Take 1 Tablet by mouth in the morning and 1 Tablet by mouth in the evening. 200 Tablet 1 3 Active Allopurinol 300 MG Oral Tablet (Zyloprim) Take 1 Tablet by mouth at bedtime. 90 Tablet 3 3 Active Tiotropium [place]-Olodatero l 2.5-2.5 MCG/ACT Inhalation Aerosol Solution (Stiolto Respimat) Inhale 2 Puffs by mouth in the morning. 12 g 3 3 Active Levothyroxine Sodium 125 MCG Oral Tablet (Levoxyl) TAKE ONE TABLET BY MOUTH FIRST THING IN THE MORNING 100 Tablet 3 3 07/21/20 24 Active Torsemide 10 MG Oral Tablet (Demadex) Take 1 Tablet by mouth in the morning. 100 Tablet 3 3 Active Folic Acid 1 MG Oral TabletIndications :Chronic atrial fibrillation (HCC) TAKE ONE TABLET BY MOUTH EVERY MORNING 100 Tablet 1 4 09/01/19 25 Active Montelukast Sodium 10 MG Oral Tablet (Singulair)Indica tions:Moderate persistent asthma without complication TAKE ONE TABLET BY MOUTH AT BEDTIME 100 Tablet 3 4 09/01/19 25 Active Sotalol HCl 80 MG Oral Tablet (Betapace)Indicat ions:Paroxysmal atrial fibrillation (HCC) Take 0.5 Tablets by mouth in the morning. 0 4 Active Aspirin 81 MG Oral Tablet Delayed Release Take 1 Tablet by mouth daily. 0 09/18/19 24 Discontinued([facility] List Clean Up) Clopidogrel Bisulfate 75 MG Oral Tablet (pLAVix) Take 1 Tablet by mouth every evening. 30 Tablet 5 3 09/16/19 24 Discontinued documented as of this encounter (statuses as of 09/24/2023) Active Problems Problem Noted Date Diagnosed Date Presence of Watchman left atrial appendage closu re device 07/31/2023 S/P mitral valve clip implantation 03/06/2023 Atherosclerosis of 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 02/13/2023 Last Assessment & Plan: Continue statin, sotalol. ASA History of TIA (transient ischemic attack) 11/29 Last Assessment & Plan: -Recent admission to [facility] [place], presented with numbness of tongue and slurred [...] Obstructive sleep apnea of adult 09/09/2014 Overview: SHORT ORDER COOK Last Assessment & Plan: Now just using [...] as of this encounter (statuses as of 09/24/2023) Resolved Problems Problem Noted Date Diagnosed Date [...] as of this encounter (statuses as of 09/24/2023) Immunizations Name Administration Dates Next Due COVID-19 [...] or do you have serious difficulty hearing? No-HOPI can hear w/ hearing aid 03/07/2023 Are [...] this encounter Progress Notes * Veronique Batista, [facility] - 09/15/2023 3:58 PM EST Medication Therapy Disease Management [facility] - Medication Reconciliation Inga Barakat is an 83 year old being seen for medication reconciliation. Prescription insurance information: JEANETTE Stacy Do you have any other prescription coverage: Yes, PACE Preferred pharmacy: [facility] ([facility]) [x] Problem list reviewed [x] Allergies reviewed and updated if needed [x] Drug interaction check completed [x] HEDIS list addressed Immunizations: Up to Date Medication Organization/Adherence: Has home care nurse or caregiver: no but kids help Patient uses a pill box? Yes, refill(s) completed by children When you are at home, how often do you miss doses of medications? Less than once a week Reports specifically missing this morning's meds due to travel to [place] How difficult is it for you to pay for your medications? Not difficult at all How often do you experience side effects from your medications? Never Labs/Vitals/Risk Scores: The ASCVD Risk score ([place] BLAIR, et al., 2019) failed to calculate for the following reasons: The 2019 ASCVD risk score is only valid for ages 40 to 79 The patient has a prior [place] or stroke diagnosis BP Readings from Last 3 Encounters: 09/15/23 120/56 09/15/23 118/59 09/11/23 126/54 Recent Labs Units 08/15/23 0000 02/21/23 1231 08/27/22 1609 HEMOGLOBIN A1C - MELITON % -- 6.5* 6.2* HEMOGLOBIN, [id number] LAB 6.8* -- -- Recent Labs Units 09/08/23 0526 08/21/23 1528 08/20/23 1138 ESTIMATED GLOMERULAR FILTRATION RATE - MELITON mL/min 25* 19* 18* Serum creatinine: 1.9 mg/dL (H) 09/08/23 0526 Estimated creatinine clearance: 22.4 mL/min (A) Assessment & Plan: Medication discrepancies identified: updated per discharge. Dose/frequency of medications appropriate for current renal function? yes Other medication problems identified: patient has clot on atrial appendage/watchman, but cannot take eliquis due to history of GI bleeds. Patient to meet with hematology and cardiology to discuss. Patient education provided: n/a Referral pended for follow up management of: N/A Summary- Changes & Recommendations: Med rec completed with patient. g Repeat med rec visit in 1 year Veronique Nye [facility] Clinical Pharmacist - Military Administrative Technician Medication Therapy Management Clinic 09/15/2023, 3:59 PM documented in this encounter Plan of Treatment Upcoming Encounters Date Type Department Care Team (Late st Contact Info) Description 09/29/2023 9:20 AM EST Office Visit Family Practice [address] [place] [address] 293 [place] [address] Florentin Calvo, 293 [place] [address] 10/06/2023 8:30 AM EST Office Visit Cardiology, [facility] 132 [place] [address] Stephen Hewitt, 132 [place] [address] 10/14/2023 2:30 PM EST Office Visit Hematology/Oncology [facility] 200 [facility] [place] [address] Nereyda Metz CRNP 400 [facility] [place] [address] 11/03/2023 8:00 AM EDT Appointment Cardiac Studies [facility], [address] [address] 11/03/2023 1:30 PM EDT Office Visit Gynecology/Oncology, [place] [address] [place] [address] Vanessa Elena PA-C [address] [place], [place] [phone] 11/04/2023 11:00 AM EDT Office Visit Otolaryngology [facility] 132 [facility] [place] [address] Cheri Castillo PA-C 132 [facility] [place] [address] 11/11/2023 8:45 AM EDT Office Visit Hematology/Oncology [facility] 200 [facility] [place] [address] Hasmukh Hood MD 200 [facility] [place] [address] 12/08/2023 2:20 PM EDT Office Visit Family Practice [address] [place] [address] [facility] [address] Florentin Calvo, 293 [facility] [address] 01/21/2024 2:40 PM EDT Office Visit Otolaryngology [facility] 132 [facility] [place] [address] Cheri Castillo PA-C 132 [facility] [place] [address] 02/17/2024 3:30 PM EDT Office Visit Nephrology, [facility] [address] [place] [address] ZeMichelle chiu PA-C 200 [facility] [place] [address] 06/03/2024 2:15 PM EDT Office Visit Ophthalmology, [facility] 132 [facility] [place] [address] Wilbur Benavides, DO 21 [facility] [place] [address] 08/09/2024 1:00 PM EST Nurse Only Ancillary [address] [place] 293 [place] [address] College, Nurse Annual Wellness Visit [address] [place] [address] Health Maintenance Due Date Last Done Comments Hepatitis B (1 of 3 - Risk 3-dose series) 2000 HbA1c 02/14/2024 2023, 01/25, 08/27/2022, Additional history exists Albumin/Creatinine Ratio 02/22/2024 023, 05/01/2022, 10/26/2021, Additional history exists GFR 03/22/2024 09/22/2023, 08/26, 09/08/2023, Additional history exists Diabetic Eye Exam 05/22/2024 05/22/2023, , 05/22/2023, Additional history exists CKD PHOS USE SMARTSET 66176 08/19/202407/26, 05/01/2022, 04/03/2022, Additional history exists Depression Screening 09/15/2024 09/15/2023 Diabetic Foot Exam 09/15/2024 09/15/2023, 0 10/01/2022, 10/26/2021, Additional history exists TSH 09/15/2024 09/15/2023, 08/27, 08/27/2022, Additional history exists CKD HGB USE SMARTSET 09434 09/22/202409/22, 09/22/2023, 09/15/2023, Additional history exists DXA Scan 05/07/2025 05/07/2021, [...] Medical Devices Implanted Type Area Front End Alignment Specialist Device Identifier Shelf Expiration Date Model / Serial / Lot Cath Thermodilution 6fr - [id number] Implanted:Qty: 1 on 01/24/2023 by Wilbur Rivera MD at [facility] [employer] [id number] 10/15/2024 [id number] / / [id number] Mirtaclip G4 - [id number] Implanted:Qty: 1 on 03/10/2023 at [facility] [employer] 11/19/2023 [id number] / / [id number] Device Watchman Flx 31mm - [id number] Implanted:Qty: 1 on 07/31/2023 by Wilbur Rivera MD at [facility] [employer] : INTRV CARD [id number] 12/02/2025 [id number] documented as of this encounter Visit Diagnoses Diagnosis Encounter for long-term (current) use of medications- Primary Encounter for long-term (current) use of other medications documented in this encounter Advance Directives Documents on File Type Date Recorded Patient 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 No Code Status History Code Status Date [...] Agents on File Name Relationship Healthcare Agent [facility] Communication Bright Barakat Adult Child Health Care Frieda t (per Health Care Power of Gear Straightener document) Care Teams Food Safety Coordinator Relationship Specialty Start Date End Date Florentin Calvo DO [address] [place] [address] PCP - General Internal Medicine 03/24/13 documented as of this encounter
--- OUTSIDE RECORDS SUMMARY | 2023-10-10 09:34 | External Medical Summary ---
Author Name Unknown Address Unknown Organization [id number]:[facility] - 100 [facility] [place] [address] Laboratory Report Ordering Provider Test Date Status PARVIZ ORR 09/29/2023 10:06:23 Final Observation Date Value Abnormality Reference (Units ) Status SYNC LEUKOCYTES IN BLOOD BY AUTOMATED COUNT 09/29/2023 10:06:23 8.56 4.00-10.80 (K/uL) Final Segs 09/29/2023 10:06:23 74.8 40.0-75.0 (%) Final Lymphs % 09/29/2023 10:06:23 10.0 Below low normal 18.0-42.0 (%) Final Monos 09/29/2023 10:06:23 9.0 1.0-11.0 (%) Final Eosinophils 09/29/2023 10:06:23 5.0 0.0-6.0 (%) Final Basos 09/29/2023 10:06:23 0.6 0.0-2.0 (%) Final Immature Granulocyte, Percent 09/29/2023 10:06:23 0.6 0.0-2.0 (%) Final Absolute Segs 09/29/2023 10:06:23 6.40 1.80-7.70 (K/uL) Final Lymphs, absolute 09/29/2023 10:06:23 0.86 Below low normal 1.00-4.80 (K/ul) Final Monos, Abs 09/29/2023 10:06:23 0.77 0.00-1.10 (K/uL) Final Eos, Abs 09/29/2023 10:06:23 0.43 0.00-0.70 (K/uL) Final Basos, Abs 09/29/2023 10:06:23 0.05 0.00-0.20 (K/uL) Final Immature Granulocytes, Number 09/29/2023 10:06:23 0.05 0.00-0.20 (K/uL) Final Performing Location [facility] [place] - [facility] [address]
--- OUTSIDE RECORDS SUMMARY | 2023-10-10 09:34 | External Medical Summary ---
Author Name Unknown Address Unknown Organization K01:[facility] - [address] [place] [address] Laboratory Report Ordering Provider Test Date Status PARVIZ ORR 09/29/2023 10:06:23 Final Observation Date Value Abnormality Reference (Units ) Status Iron 09/29/2023 10:06:23 77 33-151 (ug /dL) Final Iron-binding capacity 09/29/2023 10:06:23 259 250-425 (ug/dL) Final Transferrin Sat % 09/29/2023 10:06:23 30 15 -55 (%) Final Performing Location [facility] - [address] [place] [address]
--- OUTSIDE RECORDS SUMMARY | 2023-10-10 09:34 | External Medical Summary ---
Author Name Unknown Address Unknown Organization [id number]:[facility] [address] [facility] [address] [place] [address] Laboratory Report Ordering Provider Test Date Status PARVIZ ORR 09/29/2023 10:06:23 Final Observation Date Value Abnormality Reference (Units ) Status WBC, Total 09/29/2023 10:06:23 8.56 4.00-10.80 (K/uL) Final RBC 09/29/2023 10:06:23 3.29 3.85-5.15 (M/uL) Final Hemoglobin 09/29/2023 10:06:23 10.3 Below low normal 12.0-15.3 (g/dL) Final HCT 09/29/2023 10:06:23 33.0 Below low normal 36.0-45.2 (%) Final MCV 09/29/2023 10:06:23 100.3 81.5-97.5 (fL) Final MCH 09/29/2023 10:06:23 31.3 27.0-34.0 (pg) Final MCHC 09/29/2023 10:06:23 31.2 32.0-36.0 (g/dL) Final RDW 09/29/2023 10:06:23 16.5 11.5-15.5 (%) Final Platelets 09/29/2023 10:06:23 229 140-400 (K/uL) Final MPV 09/29/2023 10:06:23 11.3 6.6-11.1 (fL) Final Nucleated erythrocytes/100 leukocytes [Ratio] in Blood by Automated count 09/29/2023 10:06:23 0 <=0 (/100 WBCs) Final Performing Location [facility] [place] - [address] [place] [address]
--- OUTSIDE RECORDS SUMMARY | 2023-10-10 09:34 | External Medical Summary | Summary of Care ---
Author Name Unknown Organization [facility] Address [address] [place] [address] Phone [phone] Care Team Providers Care Label Coder Name Role Phone Florentin Calvo DO Primary Care Provider [phone] Reason for Visit * Reason Onset Date Comments Advice 09/24/202309/24 Encounter Details Date Type Department Care Team (Late st Contact Info) Description 09/24/2023 Telephone Family Practice 65 [facility] [place] [address] [place] [address] Florentin Calvo DO [address] [place] [address] Advice (09/24) Allergies Active Allergy Reactions Criticality Noted Date Comments Azithromycin Other (Please comment) 12/04/2021 QTC prolongation at [facility] Celecoxib Hives,Rash High 03/24/2013 Other reaction(s): [...] as of this encounter (statuses as of 09/25/2023) Medications Medication Sig Dispensed Refills Start Date End Date Status GEOLIDTouch Verio w/Device KitIndications:Type 2 diabetes mellitus with [...] and hypertension ([facility]) TAKE ONE TABLET BY MOUTH EVERY DAY DIRECTED 100 Tablet 3 03/31/2023 Active Ipratropium [place] 0.03 % Nasal Solution (Atrovent)Indicatio ns:Chronic rhinitis [...] bedtime. 90 Tablet 3 05/16/2023 Active Tiotropium [place]-Olodaterol 2.5-2.5 MCG/ACT Inhalation Aerosol Solution (Stiolto Respimat) [...] BEDTIME 100 Tablet 3 09/02/2023 09/01/2024 Active Sotalol HCl 80 MG Oral Tablet (Betapace)Indicatio ns:Paroxysmal atrial fibrillation (HCC) Take 0.5 Tablets by mouth in the morning. 0 09/10/2023 Active Apixaban 2.5 MG Oral Tablet (Eliquis) Take 1 Tablet by mouth in the morning and 1 Tablet before bedtime. 90 Tablet 1 09/16/2023 Active documented as of this encounter (statuses as of 09/25/2023) Active Problems Problem Noted Date Diagnosed Date Presence of Watchman left atrial appendage closu re device 07/31/2023 S/P mitral valve clip implantation 03/06/2023 Atherosclerosis of 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 02/13/2023 Last Assessment & Plan: Continue statin, sotalol. 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 No-[place] can hear w/ hearing aid 03/07/2023 Are [...] Telephone Encounter - Florentin Calvo DO - 09/25/2023 3:05 PM EST Noted * Telephone Encounter - Hilda Awad LPN - 09/25/2023 3:02 PM EST No fever or chills, is aware of below. Thank you * Telephone Encounter - Florentin Calvo DO - 09/25/2023 2:59 PM EST See if any fever or chills are present Apixaban is not cause of diarrhea * Telephone Encounter - Hilda Awad LPN - 09/25/2023 2:43 PM EST Son called to state that patient had bout of diarrhea. Uncertain if any medication causing diarrhea. Called patient and she states she took two anti diarrheal pills yesterday and today she is better. States she has not had any more episodes of diarrhea, is eating today "lightly". Denies fever, or pain, denies chest pain or sob. Denies blood in stool. Encouraged to stay hydrated and encouraged patient to eat. Would eliquis cause diarrhea? Thank you * Telephone Encounter - Grace Arnold OSA - 09/24/2023 5:03 PM EST Pt left voicemail returning Hilda's call. * Telephone Encounter - Hilda Awad LPN - 09/24/2023 3:30 PM EST Called, left message for patient to return call. Thank you * Telephone Encounter - Angle Cain OSA - 09/24/2023 3:15 PM EST Patient called and would like a call back from Hilda AGRAWAL. documented in this encounter Plan of Treatment Upcoming Encounters Date Type Department Care Team (Late st Contact Info) Description 09/29/2023 9:20 AM EST Office Visit Family [facility] 65 [facility], [address] [address] Florentin Calvo, DO [address] [place], [place] [address] 10/06/2023 8:30 AM EST Office Visit Cardiology, [facility] 132 [facility] [place] [address] Stephen Hewitt, DO [address] [place] [place] [address] 10/14/2023 2:30 PM EST Office Visit Hematology/Oncology [facility] 200 [facility] [place] [address] Nereyda Metz CRNP [address] [place] [address] 11/03/2023 8:00 AM EDT Appointment Cardiac Studies [facility], [place] [address] [place] [address] 11/03/2023 1:30 PM EDT Office Visit Gynecology/Oncology, [place] [address] [place] [address] Vanessa Elena PA-C [address] [place] [address] 11/04/2023 11:00 AM EDT Office Visit Otolaryngology [facility] 132 [facility] [place] [address] Cheri Castillo PA-C 132 [facility] [address] 11/11/2023 8:45 AM EDT Office Visit Hematology/Oncology [facility] [address] [place] [address] Hasmukh Hood MD [address] [place] [address] 12/08/2023 2:20 PM EDT Office Visit Family Practice 65 [facility] 293 [facility], [place] [address] Florentin Calvo, 293 [place] [address] 01/21/2024 2:40 PM EDT Office Visit Otolaryngology [facility] 132 [facility] [place] [address] Cheri Castillo PA-C 132 [facility] [place] [address] 02/17/2024 3:30 PM EDT Office Visit Nephrology, [facility] 200 [facility] [place] [address] [place] PA-C 200 [facility] [address] 06/03/2024 2:15 PM EDT Office Visit Ophthalmology, [facility] 132 [facility] [place] [address] Wilbur Benavides, DO [address] [place] [address] 08/09/2024 1:00 PM EST Nurse Only Ancillary 65 [facility] 293 [facility], [place] [address] College, Nurse Annual Wellness Visit [address], [place] [address] Health Maintenance Due Date Last Done Comments Hepatitis B (1 of 3 - Risk 3-dose series) 2000 HbA1c 02/14/2024 2023, 01/25, 08/27/2022, Additional history exists Albumin/Creatinine Ratio 02/22/2024 023, 05/01/2022, 10/26/2021, Additional history exists GFR 03/22/2024 09/22/2023, 08/26, 09/08/2023, Additional history exists Diabetic Eye Exam 05/22/2024 05/22/2023, , 05/22/2023, Additional history exists CKD PHOS USE SMARTSET 91950 08/19/202407/26, 05/01/2022, 04/03/2022, Additional history exists Depression Screening 09/15/2024 09/15/2023 Diabetic Foot Exam 09/15/2024 09/15/2023, 0 10/01/2022, 10/26/2021, Additional history exists TSH 09/15/2024 09/15/2023, 08/27, 08/27/2022, Additional history exists CKD HGB USE SMARTSET 58765 09/22/202409/22, 09/22/2023, 09/15/2023, Additional history exists DXA [...] this encounter Medical Devices Implanted Type Area Coil Rewind Machine Operator Device Identifier Shelf Expiration Date Model / Serial / Lot Cath Thermodilution 6fr - [id number] Implanted:Qty: 1 on 01/24/2023 by Wilbur Rivera MD at [facility] [employer] [id number] 10/15/2024 [id number] / / [id number] Mirtaclip G4 - [id number] Implanted:Qty: 1 on 03/10/2023 at [facility] [employer] 11/19/2023 [id number] / / [id number] Device Watchman Flx 31mm - [id number] Implanted:Qty: 1 on 07/31/2023 by Wilbur Rivera MD at [facility] [employer] : INTRV CARD [id number] 12/02/2025 [id number] documented as of this encounter Advance Directives Documents on File Type Date Recorded 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 No Code Status History Code Status Date [...] Agen t (per Health Care Power of Canal Driver document) Care Teams Label Coder Relationship Specialty Start Date End Date Florentin Calvo DO [address] [place] [address] PCP - General Internal Medicine 03/24/13 documented as of this encounter
--- OUTSIDE RECORDS SUMMARY | 2023-10-10 09:34 | External Medical Summary | Summary of Care ---
Author Name Unknown Organization [facility] Address [address] [place] [address] Phone [phone] Care Team Providers Care Napper Tender Name Role Phone Florentin Calvo DO Primary Care Provider [phone] Reason for Visit * Reason Onset Date Comments Cardiology Study 10/16/2022 Advice 10/16/2022 Encounter Details Date Type Department Care Team (Late st Contact Info) Description 10/16/2022 Telephone Cardiac Studies, [address] [address] Krishan Sibley MD Cardiology Study; Advice Allergies Active Allergy Reactions Criticality Noted Date Comments Azithromycin Other (Please comment) 12/04/2021 QTC prolongation at [facility] Celecoxib Hives,Rash High 03/24/2013 Other reaction(s): [...] as of this encounter (statuses as of 09/22/2023) Medications Medication Sig Dispensed Refills Start Date [...] for Wheezing. 15 g 12 2 Active lansoprazole SOLUTAB (PREVACID SOLUTAB) 15 MG TBDP Take 1 Tab by mouth daily as needed for Heartburn (frequent heartburn). Take 30 min before first meal of day. 30 Tab 5 8 12/13/19 23 Discontinued(Med ication List Clean Up) ferrous sulfate (FEOSOL) 325 (65 FE) MG Tablet Take 1 Tab by mouth 2 times a day. 180 Tab 1 0 03/18/20 23 Discontinued Aspirin 81 MG Oral Tablet Delayed Release Take 1 Tablet by mouth daily. 0 09/18/19 24 Discontinued(Med ication List Clean Up) Ondansetron HCl 4 MG Oral TabletIndications :Nausea Take by mouth 1 Tablet every 8 hours as needed for Nausea. 30 Tablet 0 2 11/19/19 23 Discontinued(Med ication List Clean Up) Levothyroxine Sodium 150 MCG Oral Tablet (Levoxyl) Take by mouth 1 Tablet in the morning. (at least 30 min prior to breakfast or other meds). 100 Tablet 3 2 11/19/19 23 Discontinued(Med ication List Clean Up) Sotalol HCl 80 MG Oral Tablet (Betapace)Indicat ions:Chronic atrial fibrillation (HCC) Take by mouth 0.5 Tablets in the morning AND 0.5 Tablets before bedtime. 0.5 tablet twice daily. 90 Tablet 3 2 04/03/20 22 Discontinued(Leg acy prescription brought in as discontinued) OneTouch Delica Plus [id number] USE TWO TIMES A DAY DIRECTED 200 Each 3 2 04/30/20 22 Discontinued(Leg acy prescription brought in as discontinued) Ipratropium Edmonds 0.03 % Nasal Solution Administer into each [...] Tablet 1 2 02/03/20 23 Discontinued(Ref ill) Sertraline HCl 100 MG Oral Tablet (Zoloft)Indicatio ns:Current moderate episode of major depressive disorder without prior episode (HCC) Take by mouth 1 Tablet in the morning. 100 Tablet 3 2 11/19/19 23 Discontinued(Ref ill) guaiFENesin ER 600 MG Oral Tablet Extended Release 12 Hour (Mucinex)Indicati ons:Bronchitis, complicated Take by mouth 1 Tablet in the morning AND 1 Tablet before bedtime. Take with plenty of water. Do not cut, crush or chew. 40 Tablet 2 2 11/19/19 23 Discontinued(Med ication List Clean Up) Vitamin B12 500 MCG Oral Tablet Take 500 mcg by mouth in the morning. 0 02/14/20 23 Discontinued(Med ication List Clean Up) Tiotropium Edmonds-Olodatero l 2.5-2.5 MCG/ACT Inhalation Aerosol Solution (Stiolto Respimat)Indicati ons:Moderate persistent asthma without complication Inhale 2 Puffs by mouth in the morning. 12 g 1 2 12/13/19 23 Discontinued Montelukast Sodium 10 MG Oral Tablet (Singulair)Indica tions:Moderate persistent asthma without complication Take 1 Tablet (10 mg) by mouth every night at bedtime. 100 Tablet 3 2 08/05/20 22 Discontinued(Leg acy prescription brought in as discontinued) Atorvastatin Calcium 20 MG Oral Tablet (Lipitor)Indicati ons:PVD (peripheral vascular disease) ([facility]),Type 2 diabetes mellitus with stage 3a chronic kidney disease and hypertension (HCC) Take 1 Tablet by mouth in the morning. 100 Tablet 1 2 08/20/20 Discontinued(Leg acy prescription brought in as discontinued) ALPRAZolam 0.5 MG Oral Tablet (xaNAX)Indication s:Persistent insomnia,Anxiety Take 1 Tablet by mouth 3 times a day as needed for Sleep or Anxiety. 90 Tablet 0 3 01/18/20 23 Discontinued(Ref ill) Torsemide 10 MG Oral Tablet (Demadex) Take 1 Tablet by mouth in the morning and 1 Tablet before bedtime. 180 Tablet 1 3 12/06/19 23 Discontinued(Ref ill) Allopurinol 100 MG Oral Tablet (Zyloprim)Indicat ions:Gout, arthropathy Take 2 Tablets by mouth at bedtime. 60 Tablet 11 3 05/01/20 23 Discontinued(Ref ill) Docusate Sodium 100 MG Oral Capsule (Colace) Take 1 Capsule by mouth in the morning and 1 Capsule before bedtime. 60 Capsule 0 3 03/27/20 23 Discontinued Polyethylene Glycol 3350 17 GM/SCOOP Oral Powder (MiraLax) Take 17 g by mouth in the morning. One cap full in juice, to effect 1 stool per day. .. 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 ASA History of TIA (transient ischemic attack) 11/29 Last Assessment & Plan: -Recent admission to [facility], presented with numbness of tongue and [...] Obstructive sleep apnea of adult 09/09/2014 Overview: [employer] Last Assessment & Plan: Now just using [...] as of this encounter (statuses as of 09/22/2023) Resolved Problems Problem Noted Date Diagnosed Date [...] as of this encounter (statuses as of 09/22/2023) Immunizations Name Administration Dates Next Due COVID-19 mRNA, LNP-s, No Pre serve, 2-Dose Series (Moderna) 06/23/2021,10/25/2020,09/28/2020 COVID-19, LNP-s, No Preserve , Larry-sucrose, Ages 12+ (Pfizer) 04/09/2022 COVID-19, MRNA-LNP, 23-24, P F, 30 MCG/0.3 mL, 12 YRS AND ABOVE, IM [facility] 06/09/2023 Covid-19, Mrna, Lnp-s, Pf, B ivalent, 30 Mcg, IM, 12 yrs and above ([employer] [place] 09/10/2022 HEP A - Hepatitis A (Adult [...] Miscellaneous Notes * Telephone Encounter - Aminata High OSA - 09/22/2023 5:27 PM EST Echo completed 10/21/22. Pt followed up by JESS Mattson on 10/29/22. * Telephone Encounter - Chandrika Butt OSA - 10/16/2022 2:57 PM EST The pt would appreciate your phone call to discuss these issues. * Telephone Encounter - Veronique De CRNP - 10/16/2022 12:13 PM EST Suspect PH may be related to RADHA. Recently restarted using BIPAP-- seeing sleep medicine. Can we reschedule this for later october/early November for re-evaluation? Last PAP was 78 mmHg, prior was 43. * Telephone Encounter - Jacqueline Shaffer RDCS - 10/16/2022 7:21 AM EST Does the echocardiogram still need to be done on 10/21/22? Echo ordered and scheduled by Dr. Sibley on 07/25/22. Had an echo done in the meantime on 08/01/22. Thank you, Jacqueline Shaffer RDCS documented in this encounter Plan of Treatment Upcoming Encounters Date Type Department Care Team (Late st Contact Info) Description 09/29/2023 9:20 AM EST Office Visit Family Practice [address] [place] [address] [address] [place] [address] Florentin Calvo, DO [address] [place] [address] 10/06/2023 8:30 AM EST Office Visit Cardiology, [facility] [address] Stephen Hewitt, [address] [facility] [place] [address] 10/14/2023 2:30 PM EST Office [facility] [address] Nereyda Metz CRNP [address] [place] [address] 11/03/2023 8:00 AM EDT Appointment Cardiac Studies [facility] [address] [place] [address] 11/03/2023 1:30 PM EDT Office Visit Gynecology/Oncology, [place] [address] [place] [address] Vanessa Elena PA-C [address] [place] [address] 11/04/2023 11:00 AM EDT Office Visit Otolaryngology [facility] [address] [facility] [place] [address] Cheri Castillo PA-C [address] [facility] [place] [address] 11/11/2023 8:45 AM EDT Office Visit Hematology/Oncology [facility] [address] [facility] [place] [address] Hasmukh Hood MD [address] [facility] [place] [address] 12/08/2023 2:20 PM EDT Office Visit Family Practice [address] [place] [address] [address] [place] [address] Florentin Calvo DO [address] [place] [address] 01/21/2024 2:40 PM EDT Office Visit Otolaryngology [facility] [address] [facility] [place] [address] Cheri Castillo PA-C [address] [facility] [place] [address] 02/17/2024 3:30 PM EDT Office Visit Nephrology, [facility] [address] [place] [address] Michelle Ivy PA-C [address] [place] [address] 06/03/2024 2:15 PM EDT Office Visit Ophthalmology, [facility] [address] [facility] [place] [address] Wilbur Benavides, DO [address] [place] [address] 08/09/2024 1:00 PM EST Nurse Only Ancillary [address] [facility] [address] [facility], [place] [address] College, Nurse Annual Wellness Visit [address] [facility] [address] [facility], [place] [address] Health Maintenance Due Date Last Done Comments Hepatitis B (1 of 3 - Risk 3-dose series) 2000 HbA1c 02/14/2024 2023, 01/25, 08/27/2022, Additional history exists Albumin/Creatinine Ratio 02/22/2024 023, 05/01/2022, 10/26/2021, Additional history exists GFR 03/22/2024 09/22/2023, 08/26, 09/08/2023, Additional history exists Diabetic Eye Exam 05/22/2024 05/22/2023, , 05/22/2023, Additional history exists CKD PHOS USE SMARTSET 97771 08/19/202407/26, 05/01/2022, 04/03/2022, Additional history exists Depression Screening 09/15/2024 09/15/2023 Diabetic Foot Exam 09/15/2024 09/15/2023, 0 10/01/2022, 10/26/2021, Additional history exists TSH 09/15/2024 09/15/2023, 08/27, 08/27/2022, Additional history exists CKD HGB USE SMARTSET 07494 09/22/202409/22, 09/22/2023, 09/15/2023, Additional history exists DXA [...] encounter Medical Devices Implanted Type Area Electronic Health Records Specialist Device Identifier Shelf Expiration Date Model / Serial / Lot Cath Thermodilution 6fr - [id number] Implanted:Qty: 1 on 01/24/2023 by Wilbur Rivera MD at [facility] [place] [employer] [id number] 10/15/2024 [id number] / / [id number] Mirtaclip G4 - [id number] Implanted:Qty: 1 on 03/10/2023 at [facility] [place] [employer] 11/19/2023 [id number] / / [id number] Device Watchman Flx 31mm - [id number] Implanted:Qty: 1 on 07/31/2023 by Wilbur Rivera MD at [facility] [place] [employer] : INTRV CARD [id number] 12/02/2025 [id number] documented as of this encounter Additional Health Concerns Infection Onset Date Last Indicated Resolved Time Gastrointestinal Rule-Out 04/17/2023 04/17/2023 1:08 PM EDT C. difficile Rule-Out 04/17/2023 04/17/20232022 10:32 PM EDT documented as of this encounter Advance Directives Documents on File Type Date Recorded Patient Rn Emergency Room Expl anation Advance Directives and Living Will 11/29/2022 ADVANCE DIRECTIVE / LIVING WILL Power of Whizzer Hand 11/29/2022 POWER OF A TTORNEY Advance Directives and Living Will 10/24/2014 ADVANCE DIRECTIVE / LIVING WILL Power of Whizzer Hand 10/24/2014 POWER OF A TTORNEY Latest [...] the patient have Health Care Power of Whizzer Hand? No Code Status History Code Status Date [...] Agents on File Name Relationship [facility] [place] Adult Child Health Care Frieda t (per Health Care Power of Whizzer Hand document) Care Teams Napper Tender Relationship Specialty Start Date End Date Florentin Calvo DO [address] [place] [address] PCP - General Internal Medicine 03/24/13 documented as of this encounter
--- OUTSIDE RECORDS SUMMARY | 2023-10-10 09:34 | External Medical Summary | Summary of Care ---
Author Name Unknown Organization [facility] Address [address] [place] [address] Phone [phone] Care Team Providers Care Custom Shoe Designer And Maker Name Role Phone Florentin Calvo DO Primary Care Provider [phone] Reason for Visit * Reason Comments Follow Up Encounter Details Date Type Department Care Team (Latest Contact Info) Description 09/29/2023 9:20 AM EST Office Visit Family Practice [address] [place] [address] [address] [place] [phone] Florentin Calvo DO [address] [place] [address] Thrombus of left atrial appendage*; Paroxysmal atrial fibrillation (HCC); Presence of Watchman left atrial appendage closure device; PVD (peripheral vascular disease) ([facility]); Chronic diastolic CHF (congestive heart failure) ([facility]); Type 2 diabetes mellitus with stage 3b chronic kidney disease, without long-term current use of insulin (HCC); Acquired hypothyroidism; Tremor; Iron deficiency anemia due to chronic blood loss; Type 2 diabetes mellitus with polyneuropathy (HCC); Current moderate episode of major depressive disorder without prior episode (HCC); Pure hypercholesterolemia; Cardiac pacemaker in situ; History of endometrial cancer; Atherosclerosis of [place] coronary artery of [place] heart without angina pectoris; S/P mitral valve clip implantation; Iron deficiency anemia, unspecified iron deficiency anemia [...] as of this encounter (statuses as of 09/29/2023) Medications Medication Sig Dispensed Refills Start Date End Date Status AnamariaToradha Dia w/Device KitIndications:Type 2 diabetes mellitus with [...] DIRECTED 100 Tablet 3 03/31/2023 Active Ipratropium Sutton 0.03 % Nasal Solution (Atrovent)Indicatio ns:Chronic rhinitis [...] bedtime. 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 & Plan: Now just [...] as of this encounter (statuses as of 09/29/2023) Resolved Problems Problem Noted Date Diagnosed Date [...] as of this encounter (statuses as of 09/29/2023) Immunizations Name Administration Dates Next Due COVID-19 mRNA, LNP-s, No Pre serve, 2-Dose Series (Moderna) 06/23/2021,10/25/2020,09/28/2020 COVID-19, LNP-s, No Preserve , Larry-sucrose, Ages 12+ (Greendizer) 04/09/2022 COVID-19, MRNA-LNP, 23-24, P F, 30 MCG/0.3 mL, 12 YRS AND ABOVE, IM ([employer]-Comirnat) 06/09/2023 Covid-19, Mrna, Lnp-s, Pf, B ivalent, 30 Mcg, IM, 12 yrs and above (Greendizer) 09/10/2022 HEP A - Hepatitis A (Adult [...] Reading Time Taken Comments Blood Pressure 118/60 09/29/2023 9:35 AM EST Pulse 64 09/29/2023 9:35 AM EST Temperature 34.8 C (94.7 F) 09/29/2023 9:35 AM ES T Respiratory Rate 14 09/29/2023 9:35 AM EST Oxygen Saturation 94% 09/29/2023 9:35 AM EST Inhaled Oxygen Concentration - - Weight 73.1 kg (161 lb 3.2 oz) 09/29/2023 9:35 A M EST Height 165.1 cm (5' 5") 09/29/2023 9:35 AM EST Body Mass Index 26.83 09/29/2023 9:35 AM EST documented in this encounter Functional Status Functional Status Response Date of Assess ment Are you deaf or do you have serious difficulty hearing? No-CHILKOOT can hear w/ hearing aid 03/07/2023 Are [...] encounter Progress Notes * Florentin Calvo, - 09/29/2023 10:02 AM EST SUBJECTIVE: Inga Baarkat is a 83 year old female. Chief Complaint Patient presents with Follow Up HPI: Patient is an 83 year old female with a history of Atrial Fibrillation, Pacemaker Implant, Severe Mitral Valve Regurgitation repaired with mitral valve clip, Watchman atrial appendage closure device on 07/31/2023, Severe Tricuspid Valve Regurgitation, Pulmonary HTN, CKD stage III, Lumbar Spinal Fusion, Asthma, TIA, Essential tremor, Adenocarcinoma of the Uterus treated with Hysterectomy, Iron Deficiency Anemia due to chronic GI blood loss, Chronic Diastolic CHF, and chronic bilateral hearing loss that is seen for follow up. No further falls in since returning home from hospitalization. Strength is improving with PT. Patient was started on Apixaban due to thrombus on atrial appendage device. F ollow up BRENDAN scheduled at [facility] on 11/03/2023. EGD and Colonoscopy postponed due to need for anticoagulation. She is following with Hematology as well. No chest pain or shortness of breath are present. Weight is stable and appetite is fair. Patient Active Problem List Diagnosis Code Type 2 diabetes mellitus with hemoglobin A1c goal of less than 7.0% ([facility]) E11.9 Vertigo R42 Spinal stenosis of [...] Z79.899 Type 2 diabetes mellitus with polyneuropathy ([facility]) E11.42 Secondary hyperparathyroidism, renal (HCC) N25.81 Pulmonary hypertension ([facility]) I27.20 Current moderate episode of major depressive disorder without prior episode ([facility]) F32.1 Moderate persistent asthma without complication J45.40 Gastro-esophageal reflux disease without esophagitis K21.9 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 ([facility]) E11.319 Pure hypercholesterolemia E78.00 Aneurysm of left carotid artery ([facility]) I72.0 Aortic atherosclerosis ([facility]) I70.0 Chronic kidney disease, stage 3b ([facility]) N18.32 PVD (peripheral vascular disease) ([facility]) I73.9 Chronic diastolic CHF (congestive heart failure) ([facility]) I50.32 Type 2 diabetes mellitus with stage 3b chronic kidney disease, without long-term current use of insulin ([facility]) E11.22, N18.32 Cardiac pacemaker in situ Z95.0 History of endometrial cancer Z85.42 Normocytic anemia D64.9 Primary osteoarthritis of right knee M17.11 Severe tricuspid regurgitation I07.1 History of TIA (transient ischemic attack) Z86.73 Atherosclerosis of [place] coronary artery without angina pectoris I25.10 S/P [...] as needed for Wheezing. 15 g 12 Vitamin B-12 100 MCG Oral Tablet (vitamin [...] MOUTH EVERY DAY DIRECTED 100Tablet 3 Ipratropium Sutton 0.03 % Nasal Solution (Atrovent) Administer 2 [...] mouth at bedtime. 90 Tablet 3 Tiotropium Sutton-Olodaterol 2.5-2.5 MCG/ACT Inhalation Aerosol Solution (Stiolto Respimat) [...] 1 Tablet before bedtime. 90 Tablet 1 Reef Point SystemsTouch Verio w/Device Kit Use up to 1 times a day. E11.9 1 Kit 0 OneTouch Verio In Vitro Strip (Glucose Blood) Test blood sugars up to 2 times a day E11.9 200 Strip3 Sotalol HCl 80 MG Oral Tablet (Betapace) Take 0.5 Tablets by mouth in the morning. No current facility-administered medications for this visit. 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 Pleural effusion Pulmonary arterial hypertension (HCC) Pure hypercholesterolemia 07/02/2021 PVD (peripheral vascular disease) ([facility]) 05/15/2022 Retinopathy Secondary hyperparathyroidism, renal ([facility]) 12/17/2018 Severe mitral valve regurgitation 10/30/2022 Severe tricuspid regurgitation 11/18/2022 Spinal stenosis 07/2002 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 claudication 03/24/2013 Vertigo 03/24/2013 Past Surgical History: Procedure Laterality Date COLONOSCOPY, DIAGNOSTIC (RECTUM) 10/12/2014 inflammatory tissue on bx, diverticulosis/[facility] COLONOSCOPY, DIAGNOSTIC (RECTUM) 01/05/2016 diverticulosis, multiple non-bleeding colonic angioectasias COLONOSCOPY, DIAGNOSTIC (RECTUM) 04/15/2016 angiodysplastic lesion, diverticulosis/COLONOSCOPY FLEXIBLE PROXIMAL DIAGNOSTIC performed by Izzy Stone MD at ENDOSCOPY [facility] COLONOSCOPY, DIAGNOSTIC (RECTUM) 11/10/2020 Hemorrhoids, multi polyps, diverticulosis in sigmoid colon/ biopsy show adenomatous polyp/ COLONOSCOPY FLEXIBLE PROXIMAL DIAGNOSTIC performed by Maine Stone MD at ENDOSCOPY [facility] COLONOSCOPY, DIAGNOSTIC (RECTUM) 03/11/2022 poor prep / [facility] CORONARY ANGIOGRAPHY W/RIGHT+LEFT CATH Right 01/24/2023 CORONARY ANGIOGRAPHY W/RIGHT+LEFT CATH performed by Wilbur Rivera MD at [facility] CYSTOSCOPY 06/2012 EGD, FLEXIBLE, DIAGNOSTIC 10/12/2014 normal bx, HH/[facility] EGD, FLEXIBLE, DIAGNOSTIC 01/05/2016 ESOPHAGOGASTRODUODENOSCOPY (EGD), FLEXIBLE, TRANSORAL, DIAGNOSTIC performed by Maine Stone MD at ENDOSCOPY [facility] EGD, FLEXIBLE, DIAGNOSTIC 03/11/2022 Multiple small non-bleeding fundic gland polyps / [facility] EGD, FLEXIBLE, DIAGNOSTIC 12/09/2022 mild-mod inflammation / [facility] LAPAROSCOPY TOTAL HYSTX, UTERUS 250GM OR LESS TUBE/OVARY N/A 02/22/2020 ROBOTIC LAPAROSCOPIC HYSTERECTOMY REMOVAL TUBES AND OVARIES FOR UTERUS 250GM OR LESS performed by Florentin Perez MD at OR [facility] LAPAROSCOPY; CHOLECYSTECTOMY N/A 06/06/2020 LIGATE/CUT OVIDUCT(S) MAMMOGRAM BREAST NEEDLE BIOPSY CORE LEFT Left 09/19/2015 benign NECK SPINE FUSION (CERV, BELOW C2) 1993 1999,2011 PATIENT EDU, LUMBAR LAMINECTOMY 2001 1996 too PERC CLOSURE TRANSCATH LEFT ATRIAL APPENDAGE W/ENDOCARDIAL IMPLANT Bilateral 07/31/2023 PERCUTANEOUS CLOSURE LEFT ATRIAL APPENDAGE IMPLANT performed by Wilbur Rivera MD at [facility] [place] TONSILLECTOMY PRIMARY/SECONDARY LESS THAN AGE 12 Bilateral REPAIR RUPTURED ROTATOR CUFF, ACUTE Left 08/08/2015 SINUS SURGERY PROCEDURE NEC 1994 TRANSCATH REPAIR MITRAL VALVE, INITIAL Bilateral 03/06/2023 TRANSCATHETER MITRAL VALVE REPAIR performed by Wilbur Rivera MD at [facility] Review of patient's allergies indicates: Allergen Reactions [...] Other (Please comment) QTC prolongation at [facility] Nickel Swelling Other reaction(s): Unknown Review of Systems Constitutional: Positive for fatigue. Negative for appetite change, chills, fever and unexpected weight change. HENT: Negative for congestion, sore throat and trouble swallowing. Respiratory: Negative for cough, shortness of breath and wheezing. Cardiovascular: Negative for chest pain, palpitations and leg swelling. Gastrointestinal: Negative for abdominal pain, blood in stool, constipation, diarrhea, nausea and vomiting. Genitourinary: Negative for difficulty urinating, dysuria and hematuria. Musculoskeletal: Positive for back pain and gait problem. Neurological: Positive for tremors and weakness. Psychiatric/Behavioral: Positive for dysphoric mood. Negative for confusion, decreased concentration and sleep disturbance. OBJECTIVE: BP 118/60 | Pulse 64 | Temp (!) 34.8 C (94.7 F) | Resp 14 | Ht 1.651 m (5' 5") | Wt 73.1 kg (161 lb 3.2 oz) | SpO2 94% | BMI 26.83 kg/m | BSA 1.83 m Physical Exam [...] Gait normal. Psychiatric: Mood and Affect: Mood is depressed. Affect is flat. Behavior: Behavior normal. Thought Content: Thought content normal. Judgment: Judgment normal. PLAN AND ASSESSMENT: Thrombus of left atrial appendage (Primary) Continue Apixaban BRENDAN scheduled per Cardiology on 11/02/1013 Continue to follow with Cardiology Paroxysmal atrial fibrillation (HCC) S/P Watchman Continue Sotalol and Apixaban There is question of Sotalol dose due to worsening renal function Will send message to Cardiology Presence of Watchman left atrial appendage closure device PVD (peripheral vascular disease) ([facility]) Chronic diastolic CHF (congestive heart failure) ([facility]) Continue Torsemide Type 2 diabetes mellitus with stage 3b chronic kidney disease, without long-term current use of insulin ([facility]) - COMPREHENSIVE METABOLIC PANEL; Future; Expected date: 09/29/2023 Stable off medications Acquired hypothyroidism Continue Levothyroxine Tremor Iron deficiency anemia due to chronic blood loss Continue to follow with hematology / Oncology Continue Ferrous Sulfate Type 2 diabetes mellitus with polyneuropathy (HCC) Current moderate episode of major depressive disorder without prior episode (HCC) Continue Sertraline Pure hypercholesterolemia Continue Atorvastatin Cardiac pacemaker in situ History of endometrial cancer Treated with Hysterectomy Atherosclerosis of [place] coronary artery of [place] heart without angina pectoris S/P mitral valve clip implantation I spent a total of 40-54 minutes (exact time 50 mins) on the date of service in preparation, delivery, and documentation of the care provided to Inga Barakat excluding any time spent in the performance of separately billed services. Follow Up: Return in about 1 month (around 10/28/2023), or if symptoms worsen or fail to improve. Florentin Calvo DO 10:05 AM 09/29/2023 documented in this encounter Nursing Notes * Hilda Awad LPN - 09/29/2023 9:35 AM EST Patient presents for follow up, voices no complaints. documented in this encounter Plan of Treatment Upcoming Encounters Date Type Department Care Team (Late st Contact Info) Description 10/06/2023 8:30 AM EST Office Visit Cardiology, [facility] [address] [facility] [place] [address] Stephen Hewitt, [facility] [address] 10/14/2023 2:30 PM EST Office Visit Hematology/Oncology [facility] [address] [place] [address] Nereyda Metz CRNP [address] [facility] [place] [address] 10/29/2023 10:00 AM EST Office Visit Family Practice [address] [place] [address] [address] [facility], [place] [address] Florentin Calvo DO 293 [facility], [place] [address] 11/03/2023 8:00 AM EDT Appointment Cardiac Studies [facility], [address] [address] 11/03/2023 1:30 PM EDT Office Visit Gynecology/Oncology, [place] [address] [place] [address] Vanessa Elena [place] [address] 11/04/2023 11:00 AM EDT Office Visit Otolaryngology [facility] [address] [place] [address] Cheri Castillo PA-C [address] [facility] [address] 11/11/2023 8:45 AM EDT Office Visit Hematology/Oncology [facility] [address] [facility] [place] [address] Hasmukh Hood MD [address] [facility] [address] 12/08/2023 2:20 PM EDT Office Visit Family Practice [address] [place] [address] [address] [place] [address] Florentin Calvo, [address] [place] [address] 01/21/2024 2:40 PM EDT Office Visit Otolaryngology [facility] [address] [place] [address] Cheri Castillo PA-C [address] [facility] [place] [address] 02/17/2024 3:30 PM EDT Office Visit Nephrology, [facility] [address] [facility] [place] [address] Michelle Ivy PA-C [address] [facility] [place], [place] [address] 06/03/2024 2:15 PM EDT Office Visit Ophthalmology, [facility] [address] [address] Wilbur Benavides, [address] [place] [address] 08/09/2024 1:00 PM EST Nurse Only Ancillary [address] [facility] [address] [place] [address] College, Nurse Annual Wellness Visit [address] [place] [address] Pending Results Name Type Priority Associated Diagnoses Date /Time COMPREHENSIVE METABOLIC PANEL Lab Routine Type 2 diabetes mellitus with stage 3b chronic kidney disease, without long-term current use of insulin (HCC) 09/29/2023 10:06 AM EST CBC WITH WBC DIFFERENTIAL Lab STAT Iron deficiency anemia, unspecified iron deficiency anemia type 09/29/2023 10:06 AM EST IRON SCREEN, INCLUDING TIBC Lab STAT Iron deficiency anemia, unspecified iron deficiency anemia type 09/29/2023 10:06 AM EST FERRITIN Lab STAT Iron deficiency anemia, unspecified iron deficiency anemia type 09/29/2023 10:06 AM EST CBC Lab STAT Iron deficiency anemia, unspecified iron deficiency anemia type 09/29/2023 10:06 AM EST DIFFERENTIAL, AUTOMATED Lab STAT Iron deficiency anemia, unspecified iron deficiency anemia type 09/29/2023 10:06 AM EST Scheduled Orders Name Type Priority Associated Diagnoses Orde r Schedule COMPREHENSIVE METABOLIC PANEL Lab Routine Type 2 diabetes mellitus with stage 3b chronic kidney disease, without long-term current use of insulin (HCC) Expected: 09/29/2023 (Approximate), Expires: 09/28/2024 Health Maintenance Due Date Last Done Comments Hepatitis B (1 of 3 - Risk 3-dose series) 2000 HbA1c 02/14/2024 2023, 01/25, 08/27/2022, Additional history exists Albumin/Creatinine Ratio 02/22/2024 023, 05/01/2022, 10/26/2021, Additional history exists GFR 03/22/2024 09/22/2023, 08/26, 09/08/2023, Additional history exists Diabetic Eye Exam 05/22/2024 05/22/2023, , 05/22/2023, Additional history exists CKD PHOS USE SMARTSET 95209 08/19/202407/26, 05/01/2022, 04/03/2022, Additional history exists Diabetic Foot Exam 09/15/2024 09/15/2023, 0 10/01/2022, 10/26/2021, Additional history exists TSH 09/15/2024 09/15/2023, 08/27, 08/27/2022, Additional history exists CKD HGB USE SMARTSET 80673 09/22/202409/22, 09/22/2023, 09/15/2023, Additional history exists Depression Screening 09/29/2024 09/29/2023 [...] this encounter Medical Devices Implanted Type Area Mediator Device Identifier Shelf Expiration Date Model / Serial / Lot Cath Thermodilution 6fr - [id number] Implanted:Qty: 1 on 01/24/2023 by Wilbur Rivera MD at [facility] [employer] [id number] 10/15/2024 [id number] / / [id number] Mirtaclip G4 - [id number] Implanted:Qty: 1 on 03/10/2023 at [facility] 3Jam 11/19/2023 [id number] / / [id number] Device Watchman Flx 31mm - [id number] Implanted:Qty: 1 on 07/31/2023 by Wilbur Rivera MD at [facility] [employer] : INTRV CARD [id number] 12/02/2025 [id number] documented as of this encounter Visit Diagnoses Diagnosis Thrombus of left atrial appendage- Primary Other ill-defined heart disease Paroxysmal atrial fibrillation (HCC) Atrial fibrillation Presence of Watchman left atrial appendage closure device PVD (peripheral vascular disease) (HCC) Peripheral vascular disease, unspecified Chronic diastolic CHF (congestive heart failure) (HCC) Chronic diastolic heart failure Type 2 diabetes mellitus with stage 3b chronic kidney disease, without long-term current use of insulin (HCC) Acquired hypothyroidism Unspecified hypothyroidism Tremor Abnormal involuntary movements Iron deficiency anemia due to chronic blood loss Iron deficiency anemia secondary to blood loss (chronic) Type 2 diabetes mellitus with polyneuropathy (HCC) Type II or unspecified type diabetes mellitus with neurological manifestations, not stated as uncontrolled Current moderate episode of major depressive disorder without prior episode (HCC) Pure hypercholesterolemia Cardiac pacemaker in situ History of endometrial cancer Personal history of malignant neoplasm of other parts of uterus Atherosclerosis of [place] coronary artery of [place] heart without angina pectoris S/P mitral valve clip implantation Iron deficiency anemia, unspecified iron deficiency anemia type documented in this encounter Advance Directives Documents on File Type Date Recorded Patient Right Of Way Buyer Expl anation Advance Directives and Living Will 11/29/2022 ADVANCE DIRECTIVE / LIVING WILL Power of Life Insurance Sales Agent 11/29/2022 POWER OF A TTORNEY Advance Directives and Living Will 10/24/2014 ADVANCE DIRECTIVE / LIVING WILL Power of Life Insurance Sales Agent 10/24/2014 POWER OF A TTORNEY Latest [...] the patient have Health Care Power of Life Insurance Sales Agent? No Code Status History Code Status Date [...] [facility] p Communication [facility] Adult Child Health Care Agen t (per Health Care Power of Life Insurance Sales Agent document) Care Teams Custom Shoe Designer And Maker Relationship Specialty Start Date End Date Florentin Calvo DO [address] [place] [address] PCP - General Internal Medicine 03/24/13 documented as of this encounter
--- OUTSIDE RECORDS SUMMARY | 2023-10-10 09:34 | External Medical Summary ---
Author Name Unknown Address Unknown Organization [id number][facility] [address] [place] [address] Laboratory Report Ordering Provider Test Date Status PARVIZ ORR 09/22/2023 08:30:54 Final Observation Date Value Abnormality Reference (Units ) Status SYNC LEUKOCYTES IN BLOOD BY AUTOMATED COUNT 09/22/2023 08:30:54 8.83 4.00-10.80 (K/uL) Final Segs 09/22/2023 08:30:54 73.4 40.0-75.0 (%) Final Lymphs % 09/22/2023 08:30:54 11.4 Below low normal 18.0-42.0 (%) Final Monos 09/22/2023 08:30:54 10.2 1.0-11.0 (%) Final Eosinophils 09/22/2023 08:30:54 4.8 0.0-6.0 (%) Final Basos 09/22/2023 08:30:54 0.2 0.0-2.0 (%) Final Absolute Segs 09/22/2023 08:30:54 6.48 1.80-7.70 (K/uL) Final Lymphs, absolute 09/22/2023 08:30:54 1.01 1.00-4.80 (K/ul) Final Monos, Abs 09/22/2023 08:30:54 0.90 0.00-1.10 (K/uL) Final Eos, Abs 09/22/2023 08:30:54 0.42 0.00-0.70 (K/uL) Final Basos, Abs 09/22/2023 08:30:54 0.02 0.00-0.20 (K/uL) Final Performing Location LABOR[facility]ORY [facility] [address] [place] [address]
--- OUTSIDE RECORDS SUMMARY | 2023-10-10 09:34 | External Medical Summary ---
Author Name Unknown Address Unknown Organization [id number]:[facility] [place] [address] [place] [place] [address] Laboratory Report Ordering Provider Test Date Status PARVIZ ORR 09/22/2023 08:30:54 Final Observation Date Value Abnormality Reference (Units ) Status Ferritin 09/22/2023 08:30:54 1074 Above high normal 13 -150 (ng/mL) Final Postmenopausal women have hi gher ferritin levels than pre-menopausal women. The above reference interval is based on pre-menopausal women. Performing Location [facility] [place] [address] [place] [address]
--- OUTSIDE RECORDS SUMMARY | 2023-10-10 09:34 | External Medical Summary ---
Author Name Unknown Address Unknown Organization [id number]:[facility] [place] [address] - [address] [place] [address] Laboratory Report Ordering Provider Test Date Status EDUARDO LADD 09/22/2023 08:30:54 Final Discharge Order Observation Date Value Abnormality Reference (Units ) Status BUN 09/22/2023 08:30:54 46 Above high normal 6-20 (mg/dL) Final Creatinine 09/22/2023 08:30:54 2.2 Above high normal 0.5-1.0 (mg/dL) Final Glomerular filtration rate/1.73 sq M.predicted [Volume Rate/Area] in Serum, Plasma or Blood by Creatinine-based formula (CKD-EPI) 09/22/2023 08:30:54 21 Below low normal >=60 (mL/min) Final eGFR is calculated based on the CKD-EPI 2020 equation SODIUM 09/22/2023 08:30:54 141 135-146 (m mol/L) Final Potassium 09/22/2023 08:30:54 4.9 3.5-5.1 (m mol/L) Final Cl 09/22/2023 08:30:54 104 98-107 (mm ol/L) Final CO2 09/22/2023 08:30:54 26 22-32 (mmo l/L) Final Anion gap 09/22/2023 08:30:54 11 7-15 (mmol /L) Final Glucose 09/22/2023 08:30:54 96 70-120 (mg /dL) Final Calcium 09/22/2023 08:30:54 9.3 8.4-10.2 ( mg/dL) Final Performing Location LABORATORY [facility] [address] [place] [address]
--- OUTSIDE RECORDS SUMMARY | 2023-10-10 09:34 | External Medical Summary | Summary of Care ---
Author Name Unknown Organization [facility] Address [address] [place] [address] Phone [phone] Care Team Providers Care Bias Cutter Helper Name Role Phone Florentin Calvo DO Primary Care Provider [phone] Reason for Visit * Reason Comments Outpatient Testing Encounter Details Date Type Department Care Team (Late st Contact Info) Description 09/22/2023 9:10 AM EST Laboratory Laboratory, [facility] 132 [facility] [place] [id number] [facility] [address] [place] [address] Presence of Watchman left atrial appendage closure device; Anemia; Chronic kidney disease, stage 3b (HCC); Iron deficiency anemia, unspecified iron deficiency anemia [...] Dispensed Refills Start Date End Date Status upaduch Verio w/Device KitIndications:Type 2 diabetes mellitus with [...] DIRECTED 100 Tablet 3 03/31/2023 Active Ipratropium Leggett 0.03 % Nasal Solution (Atrovent)Indicatio ns:Chronic rhinitis [...] bedtime. 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 No-[place] can hear w/ hearing aid 03/07/2023 Are [...] AM EST Office Visit Family Practice 65 [facility] [place] 293 [facility] [place] [address] Florentin Calvo, DO 293 [place] [address] 10/06/2023 8:30 AM EST Office Visit Cardiology, [facility] 132 [facility] [place] [address] Stephen Hewitt, 132 [facility] [place] [address] 10/14/2023 2:30 PM EST Office Visit Hematology/Oncology [facility] [address] [place] [address] Nereyda Metz CRNP [address] [place] [address] 11/03/2023 8:00 AM EDT Appointment Cardiac Studies [facility], [address] [address] 11/03/2023 1:30 PM EDT Office Visit Gynecology/Oncology, [address] [address] Vanessa Elena PA-C [facility] [address] [place], [place] [address] 11/04/2023 11:00 AM EDT Office Visit Otolaryngology [facility] 132 [facility] [place] [address] Cheri Castillo PA-C 132 [facility] [address] 11/11/2023 8:45 AM EDT Office Visit Hematology/Oncology [facility] [address] [place] [address] Hasmukh Hood MD 200 [place] [address] 12/08/2023 2:20 PM EDT Office Visit Family Practice [address] [place] [address] 293 [facility] [place] [address] Florentin Calvo, 293 [place] [address] 01/21/2024 2:40 PM EDT Office Visit Otolaryngology [facility] 132 [facility] [place] [address] Cheri Castillo PA-C 132 [facility] [place] [address] 02/17/2024 3:30 PM EDT Office Visit Nephrology, [facility] 200 [facility] [place] [address] Zemaitis, Michelle Amezquita PA-C 200 [facility] [place] [address] 06/03/2024 2:15 PM EDT Office Visit Ophthalmology, [facility] 132 [facility] [place] [address] Wilbur Benavides, 21 [facility] [place] [address] 08/09/2024 1:00 PM EST Nurse Only Ancillary [address] [address] College, Nurse Annual Wellness Visit [address] [address] Pending Results Name Type Priority Associated Diagnoses Date /Time BASIC METABOLIC PANEL Lab Routine Presence of Watchman left atrial appendage closure device 09/22/2023 8:30 AM EST CBC WITH WBC DIFFERENTIAL Lab STAT Iron deficiency anemia, unspecified iron deficiency anemia type 09/22/2023 8:30 AM EST IRON SCREEN, INCLUDING TIBC Lab STAT Iron deficiency anemia, unspecified iron deficiency anemia type 09/22/2023 8:30 AM EST FERRITIN Lab STAT Iron deficiency anemia, unspecified iron deficiency anemia type 09/22/2023 8:30 AM EST CBC Lab STAT Iron deficiency anemia, unspecified iron deficiency anemia type 09/22/2023 8:30 AM EST DIFFERENTIAL, AUTOMATED Lab STAT Iron deficiency anemia, unspecified iron deficiency anemia type 09/22/2023 8:30 AM EST Health Maintenance Due Date Last Done Comments Hepatitis B (1 of 3 - Risk 3-dose series) 2000 HbA1c 02/14/2024 2023, 01/25, 08/27/2022, Additional history exists Albumin/Creatinine Ratio 02/22/2024 023, 05/01/2022, 10/26/2021, Additional history exists GFR 03/15/2024 09/15/2023, 08/25, 08/21/2023, Additional history exists Diabetic Eye Exam 05/22/2024 05/22/2023, , 05/22/2023, Additional history exists CKD PHOS USE SMARTSET 31353 08/19/202407/26, 05/01/2022, 04/03/2022, Additional history exists CKD HGB USE SMARTSET 97719 09/15/202409/15, 09/15/2023, 09/08/2023, Additional history exists Depression Screening 09/15/2024 09/15/2023 Diabetic Foot Exam 09/15/2024 09/15/2023, 0 10/01/2022, 10/26/2021, Additional history exists TSH 09/15/2024 09/15/2023, 08/27, 08/27/2022, Additional history exists DXA Scan 05/07/2025 05/07/2021, [...] this encounter Medical Devices Implanted Type Area Recreation Engineer Device Identifier Shelf Expiration Date Model / Serial / Lot Cath Thermodilution 6fr - [id number] Implanted:Qty: 1 on 01/24/2023 by Wilbur Rivera MD at [facility] [place] [place] [employer] [id number] 10/15/2024 [id number] / / [id number] Mirtaclip G4 - [id number] Implanted:Qty: 1 on 03/10/2023 at [facility] [place] [place] [employer] 11/19/2023 [id number] / / [id number] Device Watchman Flx 31mm - [id number] Implanted:Qty: 1 on 07/31/2023 by Wilbur Rivera MD at [facility] [place] [place] 250ok : INTRV CARD [id number] 12/02/2025 [id number] / [id number] documented as of this encounter Visit Diagnoses Diagnosis Presence of Watchman left atrial appendage closure device Anemia Anemia, unspecified Chronic kidney disease, stage 3b (HCC) Iron deficiency anemia, unspecified iron deficiency anemia type documented in this encounter Advance Directives Documents on File Type Date Recorded 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 No Code Status History Code Status Date [...] on File Name Relationship Healthcare Agent [facility] Communication [facility] Adult Child Health Care Agen t (per Health Care Power of Bagman/Woman document) Care Teams Bias Cutter Helper Relationship Specialty Start Date End Date Florentin Calvo DO 293 [place] [address] PCP - General Internal Medicine 03/24/13 documented as of this encounter
--- OUTSIDE RECORDS SUMMARY | 2023-10-10 09:34 | External Medical Summary ---
Author Name Unknown Address Unknown Organization [id number][facility] [address] [place] [address] Laboratory Report Ordering Provider Test Date Status PARVIZ ORR 09/22/2023 08:30:54 Final Observation Date Value Abnormality Reference (Units ) Status WBC, Total 09/22/2023 08:30:54 8.83 4.00-10.8 0 (K/uL) Final RBC 09/22/2023 08:30:54 3.18 3.85-5.15 (M/uL) Final Hemoglobin 09/22/2023 08:30:54 9.8 Below low normal 12 .0-15.3 (g/dL) Final HCT 09/22/2023 08:30:54 31.3 Below low normal 36. 0-45.2 (%) Final MCV 09/22/2023 08:30:54 98.4 81.5-97.5 (fL) Final MCH 09/22/2023 08:30:54 30.8 27.0-34.0 (pg) Final MCHC 09/22/2023 08:30:54 31.3 32.0-36.0 (g/dL) Final RDW 09/22/2023 08:30:54 15.8 11.5-15.5 (%) Final Platelets 09/22/2023 08:30:54 200 140-400 (K /uL) Final MPV 09/22/2023 08:30:54 10.7 6.6-11.1 ( fL) Final Performing Location LABORATORY [facility] 57-1 0 - [address] [place] [address]
--- OUTSIDE RECORDS SUMMARY | 2023-10-10 09:34 | External Medical Summary ---
Author Name Unknown Address Unknown Organization [id number]:LABORATORY [facility] - [address] [place] [address] Laboratory Report Ordering Provider Test Date Status PARVIZ ORR 09/22/2023 08:30:54 Final Observation Date Value Abnormality Reference (Units ) Status Iron 09/22/2023 08:30:54 53 33-151 (ug /dL) Final Iron-binding capacity 09/22/2023 08:30:54 259 250-425 (ug/dL) Final Transferrin Sat % 09/22/2023 08:30:54 20 15 -55 (%) Final Performing Location LABORATORY [facility] - [address] [place] [address]
--- OUTSIDE RECORDS SUMMARY | 2023-10-10 09:34 | External Medical Summary ---
Author Name Unknown Address Unknown Organization [id number]:[facility] [place] [address] [place] [address] [place] [address] Laboratory Report Ordering Provider Test Date Status PARVIZ ORR 09/29/2023 10:06:23 Final Observation Date Value Abnormality Reference (Units ) Status Ferritin 09/29/2023 10:06:23 986 Above high normal 13 -150 (ng/mL) Final Postmenopausal women have hi gher ferritin levels than pre-menopausal women. The above reference interval is based on pre-menopausal women. Performing Location [facility] [place] [place] [address] [place] [address]
--- OUTSIDE RECORDS SUMMARY | 2023-10-10 09:35 | External Medical Summary | Summary of Care ---
Author Name Unknown Organization [facility] Address [address] [place] [address] Phone [phone] Care Team Providers Care Prosthodontist/Educator Name Role Phone Florentin Calvo DO Primary Care Provider [phone] Reason for Visit * Reason Onset Date Comments Follow Up 09/17/2023 Procedure 09/17/2023 Encounter Details Date Type Department Care Team (Late st Contact Info) Description 09/17/2023 Telephone Cardiology [facility] [address] [place] [address] [place] Jean-Baptiste CRNP [address] [place] [address] Follow Up; Procedure Allergies Active Allergy Reactions Criticality Noted Date Comments Azithromycin Other (Please comment) 12/04/2021 QTC prolongation at [facility] Celecoxib Hives,Rash High 03/24/2013 Other reaction(s): [...] as of this encounter (statuses as of 09/17/2023) Medications Medication Sig Dispensed Refills Start Date End Date Status Endocyteuch [employer] w/Device KitIndications:Type 2 diabetes mellitus with hemoglobin A1c goal of less than 7.0% ([facility]) Use up to 1 times a day. [...] Tablet (Lipitor)Indication s:PVD (peripheral vascular disease) ([facility]),Type 2 diabetes mellitus with stage 3a chronic kidney disease and hypertension ([facility]) TAKE ONE TABLET BY MOUTH EVERY DAY [...] as of this encounter (statuses as of 09/17/2023) Active Problems Problem Noted Date Diagnosed Date Presence of Watchman left atrial appendage closu re device 07/31/2023 S/P mitral valve clip implantation 03/06/2023 Atherosclerosis of [place] 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 02/13/2023 Last Assessment & Plan: Continue statin, sotalol. 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: Now just [...] as of this encounter (statuses as of 09/17/2023) Resolved Problems Problem Noted Date Diagnosed Date [...] Stage IA(cT1a, cN0(sn), cM0) - Signed by Folrentin Perez MD on 02/24/2020 Endometrial intraepithelial neoplasia [...] as of this encounter (statuses as of 09/17/2023) Immunizations Name Administration Dates Next Due COVID-19 mRNA, LNP-s, No Pre serve, 2-Dose Series (Moderna) 06/23/2021,10/25/2020,09/28/2020 COVID-19, LNP-s, No Preserve , Larry-sucrose, Ages 12+ (Pfizer) 04/09/2022 COVID-19, MRNA-LNP, 23-24, P F, 30 MCG/0.3 mL, 12 YRS AND ABOVE, IM (LilaKutu-Comirnat) 06/09/2023 Covid-19, Mrna, Lnp-s, Pf, B ivalent, [...] or do you have serious difficulty hearing? No[place] can hear w/ hearing aid 03/07/2023 [...] encounter Miscellaneous Notes * Telephone Encounter - Boston Jean-Baptiste CRNP - 09/17/2023 7:57 AM EST Florentin Calvo DO/Nereyda Barakat underwent Watchman implant on 07/31/2023. On follow up BRENDAN 09/15/2023 she was noted to have a large thrombus on the surface of the device! She will stop her AA and Plavix and restart Eliquis 2.5 mg twice daily and have a follow up BRENDAN in about 6-8 weeks. Her hemoglobin should be monitored closely over this period of anticoagulation due to previous unclear anemia. Please call with issues. Boston James MSN, CHIEF PILOT Division of Cardiology/[place] [address] MC: 72 09/17/2023 8:10 AM Watchman Follow up: Phone follow up Interval post procedure: 45 days Diagnostic Studies since last encounter ECHO: NONE LVEF: NONE BRENDAN:NONE Device Margin residual leak: LARGE THROMBUS ON THE SURFACE OF THE DEVICE LABS: 09/15/2023 Creatinine 2.1 Hemoglobin 10.6 Banner Scale: 2 Grace Index Eval: ALL INDEPENDENT Current Outpatient Medications Medication Sig Dispense Refill ToyTalk Verio w/Device Kit Use up to 1 [...] as needed for Wheezing. 15 g 12 PicwingTouch Verio In Vitro Strip (Glucose Blood) Test [...] MOUTH EVERY DAY DIRECTED 100Tablet 3 Ipratropium Cleveland 0.03 % Nasal Solution (Atrovent) Administer 2 [...] mouth at bedtime. 90 Tablet 3 Tiotropium [place]-Olodaterol 2.5-2.5 MCG/ACT Inhalation Aerosol Solution [...] BY MOUTH AT BEDTIME 100 Tablet 3 Sotalol HCl 80 MG Oral Tablet (Betapace) Take 0.5 Tablets by mouth in the morning. Apixaban 2.5 MG Oral Tablet (Eliquis) Take 1 Tablet by mouth in the morning and 1 Tablet before bedtime. 90 Tablet 1 No current facility-administered medications for this visit. Follow up Anticoag Therapy: MUST START ANTICOAGULATION. ADVISED TO STOP ASA AND PLAVIX START ELIQUIS 2.5 MG TWICE DAILY Any follow up events: WILL NEED FOLLOW UP BRENDAN IN ABOUT 6 WEEKS If Follow up events adjudication: LARGE CLOT ON THE SURFACE OF THE WATCHMAN documented in this encounter Plan of Treatment Upcoming Encounters Date Type Department Care Team (Late st Contact Info) Description 09/18/2023 9:30 AM EST Office Visit Hematology/Oncology [facility] 200 [place] [address] Nereyda Metz CRNP 400 [facility] [place] [address] 09/29/2023 9:20 AM EST Office Visit Family Practice 65 [facility] 293 [place] [address] Florentin Calvo DO 293 [facility] [place] [address] 10/06/2023 8:30 AM EST Office Visit Cardiology, [facility] [address] [place] [address] Stephen Hewitt, DO 132 [facility] [place] [address] 10/14/2023 2:30 PM EST Office Visit Hematology/Oncology [facility] 200 [facility] [address] Nereyda Metz CRNP 400 [facility] [place] [address] 11/04/2023 11:00 AM EDT Office Visit Otolaryngology [facility] [address] [place] [address] Cheri Castillo PA-C 132 [facility] [address] 11/20/2023 3:00 PM EDT Office Visit Gynecology/Oncology, [place] [address] [place] [address] Vanessa Elena PA-C [address] [place], [place] [address] 12/08/2023 2:20 PM EDT Office Visit Family Practice [address] [place] [address] 293 [place] [address] Florentin Calvo, DO 293 [facility] [place] [address] 01/21/2024 2:40 PM EDT Office Visit Otolaryngology [facility] [address] [place] [address] Cheri Castillo PA-C 132 [facility] [place] [address] 02/17/2024 3:30 PM EDT Office Visit Nephrology, [facility] [address] Michelle Ivy PA-C 200 [facility] [place] [address] 06/03/2024 2:15 PM EDT Office Visit Ophthalmology, [facility] [address] [place] [address] Wilbur Benavides, DO [address] [place] [address] 08/09/2024 1:00 PM EST Nurse Only Ancillary 65 [facility] 293 [facility], [place] [address] College, Nurse Annual Wellness Visit 65 [facility] 293 [facility], [place] [address] Health Maintenance Due Date Last Done Comments Hepatitis B (1 of 3 - Risk 3-dose series) 2000 HbA1c 02/14/2024 2023, 01/25, 08/27/2022, Additional history exists Albumin/Creatinine Ratio 02/22/2024 023, 05/01/2022, 10/26/2021, Additional history exists GFR 03/15/2024 09/15/2023, 08/25, 08/21/2023, Additional history exists Diabetic Eye Exam 05/22/2024 05/22/2023, , 05/22/2023, Additional history exists CKD PHOS USE SMARTSET 05769 08/19/2024 12/01/2023, 05/01/2022, 04/03/2022, Additional history exists CKD HGB USE SMARTSET 82144 09/15/202409/15, 09/15/2023, 09/08/2023, Additional history exists Depression [...] this encounter Medical Devices Implanted Type Area Feed Management Advisor Device Identifier Shelf Expiration Date Model / Serial / Lot Cath Thermodilution 6fr - [id number] Implanted:Qty: 1 on 01/24/2023 by Wilbur Rivera MD at [facility] [place] [employer] [id number] 10/15/2024 [id number] / / [id number] Mirtaclip G4 - [id number] Implanted:Qty: 1 on 03/10/2023 at [facility] [employer] 11/19/2023 [id number] / / [id number] Device Watchman Flx 31mm - [id number] Implanted:Qty: 1 on 07/31/2023 by Wilbur Rivera MD at [facility] [employer] : INTRV CARD [id number] 12/02/2025 [id number] documented as of this encounter Advance Directives Documents on File Type Date Recorded 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 No Code Status History Code Status [...] Agen t (per Health Care Power of Software Engineering Project Manager document) Care Teams Prosthodontist/Educator Relationship Specialty Start Date End Date Florentin Calvo DO [address] [place] [address] PCP - General Internal Medicine 03/24/13 documented as of this encounter
--- OUTSIDE RECORDS SUMMARY | 2023-10-10 09:35 | External Medical Summary | Summary of Care ---
Author Name Unknown Organization [facility] Address [address] [place] [address] Phone [phone] Care Team Providers Care Duty Manager Name Role Phone Florentin Calvo DO Primary Care Provider [phone] Reason for Visit * Reason Comments Follow Up Encounter Details Date Type Department Care Team (Late st Contact Info) Description 09/18/2023 9:30 AM EST Office Visit Hematology/Oncology [facility] [address] [place] [address] Nereyda Metz CRNP [address] [place] [address] Iron deficiency anemia, unspecified iron deficiency anemia type*; Chronic kidney disease, stage 3b (HCC); Thrombosis involving cardiac device, subsequent encounter Allergies Active Allergy Reactions Criticality Noted Date [...] as of this encounter (statuses as of 09/20/2023) Medications Medication Sig Dispensed Refills Start Date End Date Status Fancy w/Device KitIndications:Typ e 2 diabetes mellitus with hemoglobin A1c goal of less than 7.0% ([facility]) Use up to 1 times [...] (Lipitor)Indicatio ns:PVD (peripheral vascular disease) ([facility]),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 90 Tablet 3 05/16/2023 Active Tiotropium [place]-Olodaterol 2.5-2.5 MCG/ACT Inhalation Aerosol Solution (Stiolto [...] BEDTIME 100 Tablet 3 09/02/2023 5 Active Sotalol HCl 80 MG Oral Tablet (Betapace)Indicati ons:Paroxysmal atrial fibrillation (HCC) Take 0.5 Tablets by mouth in the morning. 0 09/10/2023 Active Apixaban 2.5 MG Oral Tablet (Eliquis) Take 1 Tablet by mouth in the morning and 1 Tablet before bedtime. 90 Tablet 1 09/16/2023 Active Aspirin 81 MG Oral Tablet Delayed Release Take 1 Tablet by mouth daily. 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 Last Assessment & Plan: Now just [...] as of this encounter (statuses as of 09/20/2023) Resolved Problems Problem Noted Date Diagnosed Date [...] as of this encounter (statuses as of 09/20/2023) Immunizations Name Administration Dates Next Due COVID-19 [...] Sign Reading Time Taken Comments Blood Pressure 107/71 09/18/2023 9:29 AM EST Pulse 68 09/18/2023 9:29 AM EST Temperature 36.7 C (98.1 F) 09/18/2023 9:29 AM ES T Respiratory Rate 16 09/18/2023 9:29 AM EST Oxygen Saturation 96% 09/18/2023 9:29 AM EST Inhaled Oxygen Concentration - - Weight 73.1 kg (161 lb 1.6 oz) 09/18/2023 9:29 A M EST Height 165.1 cm (5' 5") 09/18/2023 9:29 AM EST Body Mass Index 26.81 09/18/2023 9:29 AM EST documented in this encounter Functional Status Functional Status Response Date of Assess ment Are you deaf or do you have serious difficulty hearing? No-TRIBE can hear w/ hearing aid 03/07/2023 Are [...] as of this encounter Progress Notes * Isaías Nereyda JESS Cole - 09/18/2023 9:30 AM EST Images from the original note were not included. Hematology/Oncology Outpatient Clinic note [facility] [address] [place] [address] Name: Inga Barakat Date: 09/17/2023 CHIEF COMPLAINT: Inga Barakat is a 83 year old female here today for f/u visit today. Patient of Dr. Hasmukh Hood. From Patient chart confirmed with patient. HEMATOLOGY/ONCOLOGY DIAGNOSIS: Iron deficiency anemia CKD TREATMENT HISTORY: 1 unit of PRBC November 2022 IV Venofer 300 mg x 2 doses 14 days apart completed 11/01/22 2 units of PRBC while admitted to [facility] between 08/22/2023- 09/04/2023. She was also treated with Venofer x 5 days CURRENT TREATMENT: Ferrous sulfate 1 tablet daily [...] on 02/24/2020 Patient continues to follow with [facility] for annual surveillance. Patient with baseline Hgb [...] atrialfibrillation that also improved with pacemaker placement. Patient was hospitalized at [facility] from 12/06/22 - 12/09/22 MitraClip placement due to severe symptomatic mitral regurgitation on 03/06/2023. HOSPITAL COURSE (focused): Patient reported to [facility] for mitral valve clip placement in the [...] LFTs, dysphagia and weight loss. Recommended EGD/EUS. Interval History: Inga Barakat underwent Watchman implant on 07/31/2023. Patient admitted to [facility] from 08/22/2023- 09/04/2023 and [facility] 09/04/2023- 09/11/2023. Hgb was 6.5 and patient required 2 units of PRBC while admitted. She was treated with Venofer x 5 days. GI recommended outpatient EGD / Colonoscopy to assess for GI blood loss. Patient had Acute on chronic CKD as well. On follow up BRENDAN 09/15/2023 she was noted to have a large thrombus on the surface of the device. Shewill stop her AA and Plavix and restart Eliquis 2.5 mg twice daily and have a follow up BRENDAN in about 6-8 weeks. Her hemoglobin should be monitored closely over this period of anticoagulation due to previous unclear anemia. HISTORY OF PRESENT ILLNESS: Inga Barakat is a 83 year old female with a history as outlined above. Currently here for f/u visit today. Patient feeling weak today. Is starting PT/OT. Ambulating with a walker. Confirms taking oral iron once a day. Taking Eliquis 2.5 mg BID. 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 Pleural effusion Pulmonary arterial hypertension ([facility]) Pure hypercholesterolemia 07/02/2021 PVD (peripheral vascular disease) ([facility]) 05/15/2022 Retinopathy Secondary hyperparathyroidism, renal ([facility]) 12/17/2018 Severe mitral valve regurgitation 10/30/2022 Severe tricuspid regurgitation 11/18/2022 Spinal stenosis 07/2002 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 claudication 03/24/2013 Vertigo 03/24/2013 Past Surgical History: Procedure Laterality Date COLONOSCOPY, DIAGNOSTIC (RECTUM) 10/12/2014 inflammatory tissue on bx, diverticulosis/[facility] COLONOSCOPY, DIAGNOSTIC (RECTUM) 01/05/2016 diverticulosis, multiple non-bleeding colonic angioectasias COLONOSCOPY, DIAGNOSTIC (RECTUM) 04/15/2016 angiodysplastic lesion, diverticulosis/COLONOSCOPY FLEXIBLE PROXIMAL DIAGNOSTIC performed by Izzy Stone MD at END[facility]COPY [facility] COLONOSCOPY, DIAGNOSTIC (RECTUM) 11/10/2020 Hemorrhoids, multi polyps, diverticulosis in sigmoid colon/ biopsy show adenomatous polyp/ COLONOSCOPY FLEXIBLE PROXIMAL DIAGNOSTIC performed by Maine Stone MD at [facility] COLONOSCOPY, DIAGNOSTIC (RECTUM) 03/11/2022 poor prep / [facility] CORONARY ANGIOGRAPHY W/RIGHT+LEFT CATH Right 01/24/2023 CORONARY ANGIOGRAPHY W/RIGHT+LEFT CATH performed by Wilbur Rivera MD at [facility] CYSTOSCOPY 06/2012 EGD, FLEXIBLE, DIAGNOSTIC 10/12/2014 normal bx, /[facility] EGD, FLEXIBLE, DIAGNOSTIC 01/05/2016 ESOPHAGOGASTRODUODENOSCOPY (EGD), FLEXIBLE, TRANSORAL, DIAGNOSTIC performed by Maine Stone MD at [facility] EGD, FLEXIBLE, DIAGNOSTIC 03/11/2022 Multiple small non-bleeding fundic gland polyps / [facility] EGD, FLEXIBLE, DIAGNOSTIC 12/09/2022 mild-mod inflammation / [facility] LAPAROSCOPY TOTAL HYSTX, UTERUS 250GM OR [...] MD at [facility] ID TONSILLECTOMY PRIMARY/SECONDARY LESS THAN AGE 12 Bilateral REPAIR RUPTURED ROTATOR CUFF, ACUTE Left 08/08/2015 SINUS SURGERY PROCEDURE NEC 1994 TRANSCATH REPAIR MITRAL VALVE, INITIAL Bilateral 03/06/2023 TRANSCATHETER MITRAL VALVE REPAIR performed by Wilbur Rivera MD at [facility] Social History Socioeconomic History Marital status: Spouse name: Not on file Number of children: Not on file Years of education: Not on file Highest education level: Not on file Occupational History Not on file Tobacco Use Smoking status: Former Packs/day: 1.25 Years: 18.00 Additional pack years: 0.00 Total pack years: 22.50 Types: Cigarettes Quit date: 12/29/1978 Years since quittin.7 Passive exposure: Past Smokeless tobacco: Never Vaping Use Vaping Use: Never used Substance and Sexual Activity Alcohol use: No Drug use: No Sexual activity: Not Currently Partners: Male control/protection: Surgical Comment: hysterectomy Other Topics Concern Not on file Social History Narrative Not on file Social Determinants of Health Financial Resource Strain: Not on file Food Insecurity: No Food Insecurity (09/15/2023) Hunger Vital Sign Worried About Running Out of Food in [...] Azithromycin Other (Please comment) QTC prolongation at [facility] Nickel Swelling Other reaction(s): Unknown Current Outpatient Medications Medication Sig Dispense Refill Fancy w/Device Kit Use up to 1 times [...] as needed for Wheezing. 15 g 12 Fancy In Vitro Strip (Glucose Blood) Test blood [...] MOUTH EVERY DAY DIRECTED 100Tablet 3 Ipratropium [place] 0.03 % Nasal Solution (Atrovent) Administer [...] mouth at bedtime. 90 Tablet 3 Tiotropium [place]-Olodaterol 2.5-2.5 MCG/ACT Inhalation Aerosol Solution (Stiolto [...] No current facility-administered medications for this visit. REVIEW OF SYSTEMS: See HPI - otherwise negative OBJECTIVE: Filed Vitals: 09/18/23 0929 BP: 107/71 Pulse: 68 Resp: 16 Temp: 36.7 C (98.1 F) TempSrc: Tympanic SpO2: 96% Weight: 73.1 kg (161 lb 1.6 oz) Height: 1.651 m (5' 5") Wt Readings from Last 5 Encounters: 09/18/23 73.1 kg (161 lb 1.6 oz) 09/15/23 72.8 kg (160 lb 6.4 oz) 09/11/23 72.3 kg (159 lb 6.4 oz) 08/21/23 73.2 kg (161 lb 6.4 oz) 08/19/23 72.9 kg (160 lb 11.2 oz) PHYSICAL EXAM: General Appearance: No acute distress Lungs/Thorax: Normal respiratory effort Extremities: +BLE edema Neurologic: alert and oriented x 4, ambulates with walker LABS: Results for orders placed or performed in visit on 09/15/23 TSH WITH FREE T4 IF INDICATED Result Value Ref Range TSH 5.86 (H) 0.27 - 4.20 uIU/mL IRON SCREEN, INCLUDING TIBC Result Value Ref Range Iron 61 33 - 151 ug/dL Iron Binding Capacity 276 250 - 425 ug/dL Transferrin Saturation Percent 22 15 - 55 % FERRITIN Result Value Ref Range Ferritin 1,278 (H) 13 - 150 ng/mL COMPREHENSIVE METABOLIC PANEL Result Value Ref Range BUN 37 (H) 6 - 20 mg/dL Creatinine 2.1 (H) 0.5 - 1.0 mg/dL Estimated Glomerular Filtration Rate 23 (L) >=60 mL/min Sodium 140 135 - 146 mmol/L Potassium 4.9 3.5 - 5.1 mmol/L Chloride 103 98 - 107 mmol/L CO2 22 22 - 32 mmol/L Anion Gap 15 7 - 15 mmol/L Glucose 119 70 - 120 mg/dL Albumin 4.1 3.8 - 5.0 g/dL AST 50 (H) 10 - 35 U/L Alkaline Phosphatase 218 (H) 35 - 130 U/L Bilirubin, Total 0.2 <=1.2 mg/dL Calcium 9.3 8.4 - 10.2 mg/dL Protein 6.5 6.0 - 8.3 g/dL ALT 34 10 - 35 U/L CBC Result Value Ref Range WBC 8.48 4.00 - 10.80 K/uL RBC 3.44 3.85 - 5.15 M/uL HGB 10.6 (L) 12.0 - 15.3 g/dL HCT 34.9 (L) 36.0 - 45.2 % MCV 101.5 81.5 - 97.5 fL MCH 30.8 27.0 - 34.0 pg MCHC 30.4 32.0 - 36.0 g/dL RDW 16.4 11.5 - 15.5 % PLT 241 140 - 400 K/uL MPV 10.3 6.6 - 11.1 fL nRBCs 0 <=0 /100 WBCs DIFFERENTIAL, AUTOMATED Result Value Ref Range WBC 8.48 4.00 - 10.80 K/uL Neutrophils % 70.4 40.0 - 75.0 % Lymphocytes % 13.0 (L) 18.0 - 42.0 % Monocytes % 9.6 1.0 - 11.0 % Eosinophils % 5.7 0.0 - 6.0 % Basophils % 0.7 0.0 - 2.0 % Immature Granulocytes % 0.6 0.0 - 2.0 % Absolute Neutrophils 5.98 1.80 - 7.70 K/uL Absolute Lymphocytes 1.10 1.00 - 4.80 K/ul Absolute Monocytes 0.81 0.00 - 1.10 K/uL Absolute Eosinophils 0.48 0.00 - 0.70 K/uL Absolute Basophils 0.06 0.00 - 0.20 K/uL Absolute Immature Granulocytes 0.05 0.00 - 0.20 K/uL T4, FREE Result Value Ref Range T4, Free 1.3 0.9 - 1.7 ng/dL *Note: Due to a large number of results and/or encounters for the requested time period, some results have not been displayed. A complete set of results can be found in Results Review. IMPRESSION/PLAN: Iron deficiency anemia CKD Device related thrombus Underwent Watchman implant on 07/31/2023. Patient admitted to [facility] from 08/22/2023- 09/04/2023. Hgb was 6.5 and patient required 2 units of PRBC while admitted. She was treated with Venofer x 5 days. GI recommended outpatient EGD / Colonoscopy to assess for GI blood loss. Patient had Acute on chronic CKD as well. On follow up BRENDAN 09/15/2023 she was noted to have a large thrombus on the surface of the device. Shestopped her AA and Plavix and restarted Eliquis 2.5 mg twice daily per recommendation of cardiology. To have a follow up BRENDAN in about 6-8 weeks. The duration of anticoagulation per cardiology based on the resolution of thrombus on follow-up imaging. Recommend CBCd, iron screen and ferritin weekly while on anticoagulation. PRBC transfusion PRN if Hgb drops below 7. Consent signed. Continue ferrous sulfate one tablet daily. RTC as scheduled with mi RTC in 8 weeks with physician JESS Tavarez documented in this encounter Nursing Notes * Sonia Ford CMA - 09/18/2023 9:30 AM EST Patient identifed by name and birthdate Do you have any concerns about pain management for today's visit? Yes. Patient instructed to discuss pain concerns with provider during the visit today Living Will or Advance Directive for Health Care as noted on the problem list. [email or web address] is a way you can talk to your provider on line through e-mail. Would you like to sign up? I can activate it for you? ALREADY ACTIVE Filed Vitals: 09/18/23 0929 BP: 107/71 Pulse: 68 Resp: 16 Temp: 36.7 C (98.1 F) TempSrc: Tympanic SpO2: 96% Weight: 73.1 kg (161 lb 1.6 oz) Height: 1.651 m (5' 5") Patient was instructed to not get up [...] 9:20 AM EST Office Visit Family Practice [address] [place] [address] [address] [place] [address] Florentin Calvo, DO [address] [facility] [place] [address] 10/06/2023 8:30 AM EST Office Visit Cardiology, [facility] [address] [facility] [address] Stephen Hewitt, DO 132 [facility] [place] [address] 10/14/2023 2:30 PM EST Office Visit Hematology/Oncology [facility] [address] [place] [address] Nereyda Metz CRNP 400 [facility] [place] [address] 11/03/2023 8:00 AM EDT Appointment Cardiac Studies [facility] [place] [address] [place] [address] 11/03/2023 1:30 PM EDT Office Visit Gynecology/Oncology, [place] [address] [place] [address] Vanessa Elena PA-C [facility] [address] [place], [place] [id number] 11/04/2023 11:00 AM EDT Office Visit Otolaryngology [facility] 132 [facility] [place] [address] Cheri Castillo PA-C [facility] [address] 11/11/2023 8:45 AM EDT Office Visit Hematology/Oncology [facility] [address] [facility] [place] [address] Hasmukh Hood MD 200 [facility] [place] [address] 12/08/2023 2:20 PM EDT Office Visit Family Practice [address] [place] [address] [address] [place] [address] Florentin Calvo, [address] [facility] [place] [address] 01/21/2024 2:40 PM EDT Office Visit Otolaryngology [facility] [address] [facility] [place] [address] Cheri Castillo PA-C 132 [facility] [place] [address] 02/17/2024 3:30 PM EDT Office Visit Nephrology, Jerri Sera 200 [facility] [place], [place] [address] Zemazhao, Michelle Amezquita PA-C [address] [facility] [place] [address] 06/03/2024 2:15 PM EDT Office Visit Ophthalmology, [facility] 132 [facility] [place] [address] Wilbur Benavides, [address] [facility] [place] [address] 08/09/2024 1:00 PM EST Nurse Only Ancillary 65 [facility] [address] [place] [address] College, Nurse Annual Wellness Visit [address] [place] [address] Scheduled Orders Name Type Priority Associated Diagnoses Orde r Schedule CBC WITH WBC DIFFERENTIAL Lab STAT Iron deficiency anemia, unspecified iron deficiency anemia type Every Week for 25 Occurrences starting 09/18/2023 until 09/17/2024 IRON SCREEN, INCLUDING TIBC Lab STAT Iron deficiency anemia, unspecified iron deficiency anemia type Every Week for 25 Occurrences starting 09/18/2023 until 09/17/2024 FERRITIN Lab STAT Iron deficiency anemia, unspecified iron deficiency anemia type Every Week for 25 Occurrences starting 09/18/2023 until 09/17/2024 Health Maintenance Due Date Last Done Comments Hepatitis B (1 of 3 - Risk 3-dose series) 2000 HbA1c 02/14/2024 2023, 01/25, 08/27/2022, Additional history exists Albumin/Creatinine Ratio 02/22/2024 023, 05/01/2022, 10/26/2021, Additional history exists GFR 03/15/2024 09/15/2023, 08/25, 08/21/2023, Additional history exists Diabetic Eye Exam 05/22/2024 05/22/2023, , 05/22/2023, Additional history exists CKD PHOS USE SMARTSET 37376 08/19/202407/26, 05/01/2022, 04/03/2022, Additional history exists CKD HGB USE SMARTSET 48466 09/15/202409/15, 09/15/2023, 09/08/2023, Additional history exists Depression [...] this encounter Medical Devices Implanted Type Area Hack Saw Operator Device Identifier Shelf Expiration Date Model / Serial / Lot Cath Thermodilution 6fr - [id number] Implanted:Qty: 1 on 01/24/2023 by Wilbur Rivera MD at [facility] [employer] [employer] [id number] 10/15/2024 [id number] / / [id number] Mirtaclip G4 - [id number] Implanted:Qty: 1 on 03/10/2023 at [facility] [employer] 11/19/2023 [id number] / / [id number] Device Watchman Flx 31mm - [id number] Implanted:Qty: 1 on 07/31/2023 by Wilbur Rivera MD at [facility] [employer] : INTRV CARD [id number] 12/02/2025 [id number] documented as of this encounter Visit Diagnoses Diagnosis Iron deficiency anemia, unspecified iron deficiency anemia type- Primary Chronic kidney disease, stage 3b (HCC) Thrombosis involving cardiac device, subsequent encounter documented in this encounter Advance Directives Documents on File Type Date Recorded Patient Director Employee Safety And Health Expl anation Advance Directives and Living Will 11/29/2022 ADVANCE DIRECTIVE / LIVING WILL Power of Paleontology Teacher 11/29/2022 POWER OF A TTORNEY Advance Directives and Living Will 10/24/2014 ADVANCE DIRECTIVE / LIVING WILL Power of Paleontology Teacher 10/24/2014 POWER OF A TTORNEY Latest [...] the patient have Health Care Power of Paleontology Teacher? No Code Status History Code Status Date [...] Agents on File Name Relationship Healthcare Agent [facility] Communication [facility] Adult Child Health Care Agen t (per Health Care Power of Paleontology Teacher document) Care Teams Duty Manager Relationship Specialty Start Date End Date Florentin Calvo DO [address] [place] [address] PCP - General Internal Medicine 03/24/13 documented as of this encounter
--- OUTSIDE RECORDS SUMMARY | 2023-10-10 09:35 | External Medical Summary | Summary of Care ---
Author Name Unknown Organization [facility] Address [address] [place] [address] Phone [phone] Care Team Providers Care Receivable Manager Name Role Phone Florentin Calvo DO Primary Care Provider [phone] Reason for Referral * Precert (Within 10 days (routine)) - Authorized Specialty Diagnoses / Procedures Referred By Contac t Referred To Contact Cardiac Studies Diagnoses 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 Procedures TRANSESOPHAGEAL ECHO (COMPLETE) Jono Jean-Baptiste CRNP [address] [place] [address] Referral ID Status Reason Start Date Expiration Date V isits Requested Visits Authorized [id number] Authorized Precert 10/29/[id number] Encounter Details Date Type Department Care Team (Late st Contact Info) Description 09/16/2023 Orders Only [facility]iology [facility] [address] [place] [address] Wilbur Rivera MD [address] [place] [address] 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 Celecoxib Hives,Rash High 03/24/2013 Other reaction(s): [...] Date End Date Status Mireya Dia w/Device KitIndications:Ty pe 2 diabetes mellitus with [...] (Lipitor)Indicati ons:PVD (peripheral vascular disease) ([facility]),Type 2 diabetes mellitus with stage 3a chronic kidney disease and hypertension (HCC) TAKE ONE TABLET BY MOUTH EVERY DAY DIRECTED 100 Tablet 3 03/31/2023 Active Ipratropium [place] 0.03 % Nasal Solution (Atrovent)Indicat ions:Chronic rhinitis [...] bedtime. 90 Tablet 3 05/16/2023 Active Tiotropium [place]-Olodatero l 2.5-2.5 MCG/ACT Inhalation Aerosol Solution (Stiolto [...] 08/20/2023 Active Folic Acid 1 MG Oral TabletIndications [...] before bedtime. 90 Tablet 1 09/16/2023 Active Clopidogrel Bisulfate 75 MG Oral Tablet (pLAVix) Take 1 Tablet by mouth every evening. 30 Tablet 5 07/31/2023 4 Discontinued documented as of this encounter (statuses as of 09/17/2023) Active Problems Problem Noted Date Diagnosed Date Presence of Watchman left atrial appendage closu re device 07/31/2023 S/P mitral valve clip implantation 03/06/2023 Atherosclerosis of [place] 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 02/13/2023 Last Assessment & Plan: Continue statin, sotalol. ASA History of TIA (transient ischemic attack) 11/29 Last Assessment & Plan: -Recent admission to 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 No-[place] can hear w/ hearing aid 03/07/2023 [...] Progress Notes * Wilbur Rivera MD - 09/16/2023 4:26 PM EST I spoke to the patient's son Bright. I explained to him about the findings on transesophageal echocardiogram. At this point given the size of the thrombus, anticoagulation is rather mandatory. I advised him to stop aspirin and Plavix. Initiate Eliquis at 2.5 mg twice daily. We will repeat the BRENDAN at 6 weeks. They are going to talk to their oncologist about doing weekly or fortnightly blood tests to keep an eye on the CBC. Prescription for Eliquis 2.5 mg twice daily sent to the pharmacy. Will organize a BRENDAN at 6 weeks. Wilbur Rivera MD MPH Interventional Cardiology Pager: [phone] 09/16/23 4:27 PM documented in this encounter Miscellaneous Notes * Addendum Note - Jono Jean-Baptiste CRNP - 09/17/2023 7:57 AM ESTAddended by: JONO JEAN-BAPTISTE on: 09/17/2023 07:57 AM Modules accepted: Orders documented in this encounter Plan of Treatment Upcoming Encounters Date Type Department Care Team (Late st Contact Info) Description 09/18/2023 9:30 AM EST Office Visit Hematology/Oncology [facility] 200 [facility], [place] [address] Nereyda Metz CRNP [address] [facility] [place] [address] 09/29/2023 9:20 AM EST Office Visit Family Practice [address] [place] [address] [facility] [address] Florentin Calvo DO 293 [facility], [place] [address] 10/06/2023 8:30 AM EST Office Visit Cardiology, [facility] 132 [facility] [place] [address] Stephen Hewitt, DO 132 [facility] [place] [address] 10/14/2023 2:30 PM EST Office Visit Hematology/Oncology [facility] 200 [facility], [place] [address] Nereyda Metz CRNP 400 [facility] [place] [address] 11/04/2023 11:00 AM EDT Office Visit Otolaryngology [facility] 132 [facility] [place] [address] Cheri Castillo PA-C 132 [facility] [place] [address] 11/20/2023 3:00 PM EDT Office Visit Gynecology/Oncology, [place] [address] [place] [address] Vanessa Elena PA-C [address] [place] [address] 12/08/2023 2:20 PM EDT Office Visit Family Practice [address] [place] [address] 293 [place] [address] Florentin Calvo, DO 293 [place] [address] 01/21/2024 2:40 PM EDT Office Visit Otolaryngology [facility] [address] [place] [address] Cheri Castillo PA-C 132 [facility] [place] [address] 02/17/2024 3:30 PM EDT Office Visit Nephrology, Jerri Zamora 200 [facility] [place], [place] [address] ZeMichelle chiu PA-C 200 [facility] [place], [place] [address] 06/03/2024 2:15 PM EDT Office Visit Ophthalmology, [facility] 132 [facility] [place] [address] Wilbur Benavides, DO [address] [place] [address] 08/09/2024 1:00 PM EST Nurse Only Ancillary 65 [facility] 293 [place] [address] College, Nurse Annual Wellness Visit 65 [facility] 293 [place] [address] Scheduled Orders Name Type Priority Associated Diagnoses Order Schedule TRANSESOPHAGEAL ECHO (COMPLETE) Echocardiology Routine 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 Expected: 10/29/2023 (Approximate), Expires: 10/18/2024 Health Maintenance Due Date Last Done Comments Hepatitis B (1 of 3 - Risk 3-dose series) 2000 HbA1c 02/14/2024 2023, 01/25, 08/27/2022, Additional history exists Albumin/Creatinine Ratio 02/22/2024 023, 05/01/2022, 10/26/2021, Additional history exists GFR 03/15/2024 09/15/2023, 08/25, 08/21/2023, Additional history exists Diabetic Eye Exam 05/22/2024 05/22/2023, , 05/22/2023, Additional history exists CKD PHOS USE SMARTSET 82582 08/19/2024 122 01/2023, 05/01/2022, 04/03/2022, Additional history exists CKD HGB USE SMARTSET 26188 09/15/202409/15, 09/15/2023, 09/08/2023, Additional history exists Depression [...] encounter Medical Devices Implanted Type Area Agricultural Real Estate Agent Device Identifier Shelf Expiration Date Model / Serial / Lot Cath Thermodilution 6fr - [id number] Implanted:Qty: 1 on 01/24/2023 by Wilbur Rivera MD at [facility] [employer] [id number] 10/15/2024 [id number] / / [id number] Mirtaclip G4 - [id number] Implanted:Qty: 1 on 03/10/2023 at [facility] [employer] 11/19/2023 [id number] / / [id number] Device Watchman Flx 31mm - [id number] Implanted:Qty: 1 on 07/31/2023 by Wilbur Rivera MD at [facility] [employer] : INTRV CARD [id number] 12/02/2025 [id number] / [id number] documented as of this encounter Visit Diagnoses Diagnosis 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 No Code Status History Code Status Date [...] Agents on File Name Relationship [facility] Bright Yuval Adult Child Health Care Agen t (per Health Care Power of Pharmaceutical Scientist document) Care Teams Receivable Manager Relationship Specialty Start Date End Date Florentin Calvo DO [address] [place] [place] [address] PCP - General Internal Medicine 03/24/13 documented as of this encounter
--- OUTSIDE RECORDS SUMMARY | 2023-10-10 09:35 | External Medical Summary | Summary of Care ---
Author Name Unknown Organization [facility] Address [address] [place] [address] Phone [phone] Care Team Providers Care Real Estate Asset Manager Name Role Phone Florentin Calvo DO Primary Care Provider [phone] Reason for Visit * Reason Onset Date Comments Hospital Follow-Up 09/05/2023 Encounter Details Date Type Department Care Team (Late st Contact Info) Description 09/05/2023 Telephone General Internal Medicine [facility] 200 [facility] [place], [place] [id number] Florentin Calvo DO [address] [place] [address] Hospital Follow-Up Allergies Active Allergy Reactions Criticality Noted Date Comments Azithromycin Other (Please comment) 12/04/2021 QTC prolongation at [facility] Celecoxib Hives,Rash High 03/24/2013 [...] as of this encounter (statuses as of 09/18/2023) Medications Medication Sig Dispensed Refills Start Date [...] Oral Tablet (Lipitor)Indicati ons:PVD (peripheral vascular disease) ([facility]),Type 2 diabetes mellitus with stage 3a chronic kidney disease and hypertension ([facility]) TAKE ONE TABLET BY MOUTH EVERY DAY DIRECTED 100 Tablet 3 3 Active Ipratropium [place] 0.03 % Nasal Solution (Atrovent)Indicat ions:Chronic rhinitis [...] bedtime. 90 Tablet 3 3 Active Tiotropium [place]-Olodatero l 2.5-2.5 MCG/ACT Inhalation Aerosol Solution (Stiolto [...] 100 Tablet 3 4 09/01/19 25 Active Aspirin 81 MG Oral Tablet Delayed Release Take 1 Tablet by mouth daily. 0 09/18/19 24 Discontinued(Med ication List Clean Up) Sotalol HCl 80 MG Oral Tablet (Betapace)Indicat ions:Paroxysmal atrial fibrillation (HCC) Take 0.5 Tablets by mouth in the morning and 0.5 Tablets before bedtime. 300 Tablet 3 3 09/10/19 24 Discontinued(Ref ill) Clopidogrel Bisulfate 75 MG Oral Tablet (pLAVix) Take 1 Tablet by mouth every evening. 30 Tablet 5 3 09/16/19 24 Discontinued Doxycycline Hyclate 100 MG Oral Tablet Take 1 Tablet by mouth in the morning and 1 Tablet before bedtime. 0 3 09/11/19 24 Discontinued(Med ication List Clean Up) documented as of this encounter (statuses as of 09/18/2023) Active Problems Problem Noted Date Diagnosed Date Presence of Watchman left atrial appendage closu re device 07/31/2023 S/P mitral valve clip implantation 03/06/2023 Atherosclerosis of [place] 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 02/13/2023 Last Assessment & Plan: Continue statin, sotalol. 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 & Plan: Now just using [...] as of this encounter (statuses as of 09/18/2023) Resolved Problems Problem Noted Date Diagnosed Date [...] as of this encounter (statuses as of 09/18/2023) Immunizations Name Administration Dates Next Due COVID-19 mRNA, LNP-s, No Pre serve, 2-Dose Series (Moderna) 06/23/2021,10/25/2020,09/28/2020 COVID-19, LNP-s, No Preserve , Larry-sucrose, Ages 12+ (Pfizer) 04/09/2022 COVID-19, MRNA-LNP, 23-24, P F, 30 MCG/0.3 mL, 12 YRS AND ABOVE, IM ([facility]) 06/09/2023 Covid-19, Mrna, Lnp-s, Pf, B [...] or do you have serious difficulty hearing? No-[place] can hear w/ hearing aid 03/07/2023 Are [...] encounter Miscellaneous Notes * Telephone Encounter - Soila Avery LPN - 09/18/2023 11:28 AM EST Lab orders placed in [employer] system Will await call back from family * Telephone Encounter - Vince David RN - 09/05/2023 2:58 PM EST Patient discharged 09/04/23 from [facility] to [facility]. Nephrology consulted and recommends: recommend hospital d/c appt w/ me 2-4 wks after d/c w/ hgb, bmp, transferrin sat, ferritin to be ordered by renal nurse and drawn 3-5 days before appt -if d/c to rehab. Please assist with these recommendations. Thank you documented in this encounter Plan of Treatment Upcoming Encounters Date Type Department Care Team (Late st Contact Info) Description 09/29/2023 9:20 AM EST Office Visit Family Practice [address] [place] [address] [address] [place] [address] Florentin Calvo, DO [address] [place] [address] 10/06/2023 8:30 AM EST Office Visit Cardiology, [facility] 132 [facility] [place] [address] Stephen Hewitt, [address] [facility] [place] [address] 10/14/2023 2:30 PM EST Office Visit [facility]ology[facility] [address] Nereyda Metz CRNP 400 [facility] [place] [address] 11/03/2023 8:00 AM EDT Appointment Cardiac Studies [address] [place] [address] 11/04/2023 11:00 AM EDT Office Visit Otolaryngology [facility] [address] [place] [address] Cheri Castillo PA-C [address] [facility] [place] [address] 11/20/2023 3:00 PM EDT Office Visit Gynecology/Oncology, [place] [address] [place] [address] Vanessa Elena PA-C [address] [place], [place] [address] 12/08/2023 2:20 PM EDT Office Visit Family Practice 65 [facility] [address] [place] [address] Florentin Calvo, [address] [place] [address] 01/21/2024 2:40 PM EDT Office Visit Otolaryngology [facility] 132 [facility] [place] [address] Cheri Castillo PA-C [facility] [address] 02/17/2024 3:30 PM EDT Office Visit Nephrology, [facility] [place] [address] ZemaitisMichelle PA-C 200 [place] [address] 06/03/2024 2:15 PM EDT Office Visit Ophthalmology, [facility] [place] [address] Wilbur Benavides, DO 21 [place] [address] 08/09/2024 1:00 PM EST Nurse Only Ancillary 65 [facility] [address] [place] [address] College, Nurse Annual Wellness Visit [facility] [place] [address] Scheduled Orders Name Type Priority Associated Diagnoses Orde r Schedule IRON SCREEN, INCLUDING TIBC Lab Routine Anemia Expected: 09/18/2023 (Approximate), Expires: 09/18/2024 CBC Lab Routine Anemia Expected: 09/18/2023 (Approximate), Expires: 09/18/2024 BASIC METABOLIC PANEL Lab Routine Chronic kidney disease, stage 3b (HCC) Expected: 09/18/2023 (Approximate), Expires: 09/18/2024 Health Maintenance Due Date Last Done Comments Hepatitis B (1 of 3 - Risk 3-dose series) 2000 HbA1c 02/14/2024 2023, 01/25, 08/27/2022, Additional history exists Albumin/Creatinine Ratio 02/22/2024 023, 05/01/2022, 10/26/2021, Additional history exists GFR 03/15/2024 09/15/2023, 08/25, 08/21/2023, Additional history exists Diabetic Eye Exam 05/22/2024 05/22/2023, , 05/22/2023, Additional history exists CKD PHOS USE SMARTSET 06340 08/19/202407/26, 05/01/2022, 04/03/2022, Additional history exists CKD HGB USE SMARTSET 36869 09/15/202409/15, 09/15/2023, 09/08/2023, Additional history exists Depression [...] this encounter Medical Devices Implanted Type Area International Specialist Device Identifier Shelf Expiration Date Model / Serial / Lot Cath Thermodilution 6fr - [id number] Implanted:Qty: 1 on 01/24/2023 by Wilbur Rivera MD at [facility] [employer] TERE [id number] 10/15/2024 [id number] / / [id number] Mirtaclip G4 - [id number] Implanted:Qty: 1 on 03/10/2023 at [facility] [employer] 11/19/2023 [id number] / / [id number] Device Watchman Flx 31mm - [id number] Implanted:Qty: 1 on 07/31/2023 by Wilbur Rivera MD [place] [facility] [employer] : INTRV CARD [id number] 12/02/2025 [id number] documented as of this encounter Visit Diagnoses Diagnosis Chronic kidney disease, stage 3b (HCC)- Primary Anemia Anemia, unspecified documented in this encounter Advance Directives Documents on File Type Date Recorded Patient Neurophysiologist Expl anation Advance Directives and Living Will 11/29/2022 ADVANCE DIRECTIVE / LIVING WILL Power of [place] Management Specialist 11/29/2022 POWER OF A TTORNEY Advance Directives and Living Will 10/24/2014 ADVANCE DIRECTIVE / LIVING WILL Power of [place] Management Specialist 10/24/2014 POWER OF A TTORNEY Latest [...] the patient have Health Care Power of [place] Management Specialist? No Code Status History Code Status [...] Name Relationship Healthcare Agent [facility] Communication Bright [facility] Adult Child Health Care Agen t (per Health Care Power of [place] Management Specialist document) Care Teams Real Estate Asset Manager Relationship Specialty Start Date End Date Florentin Calvo DO [address] [facility] [place] [address] PCP - General Internal Medicine 03/24/13 documented as of this encounter
--- OUTSIDE RECORDS SUMMARY | 2023-10-10 09:36 | External Medical Summary ---
Author Name Unknown Address Unknown Organization [id number]:LAB[facility]ATORY [facility] - [address] [facility] [address] Laboratory Report Ordering Provider Test Date Status ANTONIO EDMONDS 09/15/2023 17:16:05 Final Observation Date Value Abnormality Reference (Units ) Status SYNC LEUKOCYTES IN BLOOD BY AUTOMATED COUNT 09/15/2023 17:16:05 8.48 4.00-10.80 (K/uL) Final Segs 09/15/2023 17:16:05 70.4 40.0-75.0 (%) Final Lymphs % 09/15/2023 17:16:05 13.0 Below low normal 18.0-42.0 (%) Final Monos 09/15/2023 17:16:05 9.6 1.0-11.0 (%) Final Eosinophils 09/15/2023 17:16:05 5.7 0.0-6.0 (%) Final Basos 09/15/2023 17:16:05 0.7 0.0-2.0 (%) Final Immature Granulocyte, Percent 09/15/2023 17:16:05 0.6 0.0-2.0 (%) Final Absolute Segs 09/15/2023 17:16:05 5.98 1.80-7.70 (K/uL) Final Lymphs, absolute 09/15/2023 17:16:05 1.10 1.00-4.80 (K/ul) Final Monos, Abs 09/15/2023 17:16:05 0.81 0.00-1.10 (K/uL) Final Eos, Abs 09/15/2023 17:16:05 0.48 0.00-0.70 (K/uL) Final Basos, Abs 09/15/2023 17:16:05 0.06 0.00-0.20 (K/uL) Final Immature Granulocytes, Number 09/15/2023 17:16:05 0.05 0.00-0.20 (K/uL) Final Performing Location LABORATORY [facility] - [facility] [address] [facility] [address]
--- OUTSIDE RECORDS SUMMARY | 2023-10-10 09:36 | External Medical Summary ---
Author Name Unknown Address Unknown Organization K01:LABORATORY [facility] - [address] [place] [address] Laboratory Report Ordering Provider Test Date Status ANTONIO EDMONDS 09/15/2023 17:16:05 Final Observation Date Value Abnormality Reference (Units ) Status T4, Free 09/15/2023 17:16:05 1.3 0.9-1.7 (n g/dL) Final Performing Location LABORATORY [facility] - [address] [place] [address]
--- OUTSIDE RECORDS SUMMARY | 2023-10-10 09:36 | External Medical Summary | Summary of Care ---
Author Name Unknown Organization [facility] Address [address] [place] [address] Phone [phone] Care Team Providers Care Extruding Press Adjuster Name Role Phone Florentin Calvo DO Primary Care Provider [phone] Reason for Visit * Reason Onset Date Comments Hospital Follow-Up Hospital Follow-Up 09/15/2023 Encounter Details Date Type Department Care Team (Late st Contact Info) Description 09/15/2023 3:40 PM EST Office Visit Family Practice [address] [facility] [address] [place] [address] Florentin Calvo DO [address] [place] [address] Thrombus of left atrial appendage*; Type 2 diabetes mellitus with stage 3b chronic kidney disease, without long-term current use of insulin ([facility]); Symptomatic anemia; Generalized weakness; Paroxysmal atrial fibrillation ([facility]); Iron deficiency anemia due to chronic blood loss; Pulmonary hypertension ([facility]); Secondary hyperparathyroidism, renal (HCC); PVD (peripheral vascular disease) ([facility]); Chronic diastolic CHF (congestive heart failure) ([facility]); Acquired hypothyroidism; Tremor; Angiodysplasia of colon with hemorrhage; Current moderate episode of major depressive disorder without prior episode ([facility]); Moderate persistent asthma without complication; Gastro-esophageal reflux disease without esophagitis; Cardiac pacemaker in situ; History of TIA (transient ischemic attack); Atherosclerosis of lumbee coronary artery of lumbee heart without angina pectoris; S/P mitral valve clip implantation; Presence of Watchman left atrial appendage closure device; Type 2 diabetes mellitus with hemoglobin A1c goal of less than 7.0% ([facility]); Need for pneumococcal vaccination; Hospital discharge follow-up Allergies Active Allergy Reactions [...] as of this encounter (statuses as of 09/16/2023) Medications Medication Sig Dispensed Refills Start Date [...] for Wheezing. 15 g 12 06/13/2022 Active [employer] In Vitro Strip (Glucose Blood) Test blood [...] DIRECTED 100 Tablet 3 03/31/2023 Active Ipratropium [place] 0.03 % Nasal Solution (Atrovent)Indicatio ns:Chronic rhinitis [...] bedtime. 90 Tablet 3 05/16/2023 Active Tiotropium [place]-Olodaterol 2.5-2.5 MCG/ACT Inhalation Aerosol Solution (Stiolto Respimat) Inhale 2 Puffs by mouth in the morning. 12 g 3 05/23/2023 Active Levothyroxine Sodium 125 MCG Oral Tablet (Levoxyl) TAKE ONE TABLET BY MOUTH FIRST THING IN THE MORNING 100 Tablet 3 07/22/2023 07/21/2024 Active Clopidogrel Bisulfate 75 MG Oral Tablet (pLAVix) Take 1 Tablet by mouth every evening. 30 Tablet 5 07/31/2023 Active Torsemide 10 MG Oral Tablet (Demadex) [...] mouth in the morning. 0 09/10/2023 Active documented as of this encounter (statuses as of 09/16/2023) Active Problems Problem Noted Date Diagnosed Date Presence of Watchman left atrial appendage closu re device 07/31/2023 S/P mitral valve clip implantation 03/06/2023 Atherosclerosis of lumbee 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 02/13/2023 [...] Obstructive sleep apnea of adult 09/09/2014 Overview: MANAGING DIRECTOR ATLAS Last Assessment & Plan: Now just using [...] as of this encounter (statuses as of 09/16/2023) Resolved Problems Problem Noted Date Diagnosed Date [...] as of this encounter (statuses as of 09/16/2023) Immunizations Name Administration Dates Next Due COVID-19 mRNA, LNP-s, No Pre serve, 2-Dose Series (Moderna) 06/23/2021,10/25/2020,09/28/2020 COVID-19, LNP-s, No Preserve , Larry-sucrose, Ages 12+ (Pfizer) 04/09/2022 COVID-19, MRNA-LNP, 23-24, P F, 30 MCG/0.3 mL, 12 YRS AND ABOVE, IM (Nano[employer] Technology-ComirnatAmarin) 06/09/2023 Covid-19, Mrna, Lnp-s, Pf, B ivalent, 30 Mcg, IM, 12 yrs and above (MoonClerk) 09/10/2022 HEP A - Hepatitis A (Adult [...] Reading Time Taken Comments Blood Pressure 118/60 09/15/2023 3:41 PM EST Pulse 61 09/15/2023 3:41 PM EST Temperature 35.8 C (96.4 F) 09/15/2023 3:41 PM ES T Respiratory Rate - - Oxygen Saturation 98% 09/15/2023 3:41 PM EST Inhaled Oxygen Concentration - - Weight 72.8 kg (160 lb 6.4 oz) 09/15/2023 3:41 P M EST Height 165.1 cm (5' 5") 09/15/2023 3:41 PM EST Body Mass Index 26.69 09/15/2023 3:41 PM EST documented in this encounter Functional Status Functional Status Response Date of Assess ment Are you deaf or do you have serious difficulty hearing? No-ORUTSARARMIUT can hear w/ hearing aid 03/07/2023 Are [...] * Patient Instructions* Hilda Awad LPN - 09/15/2023 4:02 PM EST Diabetes: Keeping Feet Healthy Inspect your feet every day for signs of a problem. Diabetes can damage nerves in your feet and cause neuropathy. This condition makes it hard for you to feel injuries or sore spots. Diabetes can also change blood flow, making it harder for small problems, like a blister, to heal properly. In fact, minor injuries can quickly become serious infections that send you to the hospital. Practice self-care to protect your feet and keep them healthy. Take Special Care Inspect your feet daily for problems such as redness, blisters, cracks, dry skin, or numbness. Use a mirror to see the bottoms of your feet. Or, ask for help. Manage your diabetes. Monitor and control your blood sugar. Take all your medications as prescribed. Avoid walking barefoot, even indoors. Wash your feet with warm water and mild soap. Dry well, especially between toes. Dont treat corns or calluses yourself. Talk to your doctor or forest nursery supervisor (a doctor who specializes in foot care) if you need assistance trimming your toenails. Use moisturizing cream or lotion if you have dry skin, but dont use it between toes. Dont use heating pads on your feet. If you have neuropathy, you could get a burn and not feel it. Stop smoking. Smoking restricts blood flow and can make it harder for wounds to heal. Have Regular Checkups Foot problems can develop quickly. So be sure to follow your healthcare teams schedule for regular checkups. During office visits, take off your shoes and socks as soon as you get in the exam room. Ask your healthcare provider to examine your feet for problems. This will make it easier to find and treat small skin irritations before they get worse. Regular checkups can also help keep track of the blood flow and feeling in your feet. If you have neuropathy, you may need to have checkups more often. Wear Proper Footwear Wearing proper footwear is very important. If areas of your feet have been damaged by too much pressure, your healthcare provider may recommend changing your footwear. In some cases, avoiding high heels or tight work boots may be all thats needed. Or, your healthcare provider may recommend special shoes or custom inserts. These help protect your feet and keep existing irritations from getting worse. If you need special footwear, ask your healthcare provider if you qualify for [employer] diabetic shoe program. Make Sure Shoes and Socks Fit Any pair of shoes--new or old--should feel comfortable as soon as you put them on. There shouldnt be any rubbing when you walk. Wear the right shoe for any activity. For instance, a running shoe is designed to keep your feet injury-free while jogging. Buy shoes at the end of the day, when your feet are larger. Make sure they provide support without feeling too loose. Make sure your socks fit, t oo. Wear soft, seamless, well-padded socks for activity. Cotton or microfiber socks are best to help to absorb sweat. To protect your feet, avoid shoes that are open-toed or open-heeled. If you have questions about what kinds of shoes and socks are best, talk to your healthcare team. Get Regular Exercise Regular exercise improves blood flow in your feet. It also increases foot strength and flexibility.Gentle exercises, like walking or riding a stationary bicycle, are best. You can also do special foot exercises. Just be sure to talk with your healthcare provider before starting any exercise program. Also mention if any exercise causes pain, redness, or other signs of foot problems. Note: If you have any kind of break in the skin of your foot or ankle, keep the area clean. Then call your doctor--especially if the area doesnt appear to be healing. 9520-3913 [employer], [address] [place] [address], [place] [address]. All rights reserved. This information is not intended as a substitute for professional medical care. Always follow your healthcare professional's instructions. documented in this encounter Progress Notes * Hilda Elizabeth RN - 09/15/2023 5:15 PM EST LAB DRAWN AND SENT TO [facility]. * Florentin Calvo DO - 09/15/2023 4:30 PM EST SUBJECTIVE: Inga Barakat is a 83 year old female. Chief Complaint Patient presents with Hospital Follow-Up Hospital Follow-Up Recent Admission: Patient was recently admitted to [facility] from 08/22/2023- 09/04/2023 and [facility] 09/04/2023- 09/11/2023 . The date of discharge was 09/11/2023. Discharge report received and reviewed. 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 The patient was admitted to [facility] due to worsening lower extremity weakness and fell two times in the week leading up to admission. Hgb was 6.5 and patient required 2 units of PRBC while admitted. She was treated with Venofer x 5 days. Neuroimagingshowed mild / moderate stenosis of posterior cerebral arteries , and pansinusitis that was treated with Doxycycline. No acute infarct was present om MRI of the brain. GI recommended outpatient EGD / C olonoscopy to assess for GI blood loss. Patient had Acute on chronic CKD as well. Sotalol dose ws decreased due to worsening renal disease. The patient was transferred to [facility] and discharged on 09/11/2023. The patient had BRENDAN done at [facility] today. There is a large thrombus on atrial appendage closure device. Patient cannot be anticoagulated due to recurrent iron deficiency anemia and history of GI bleed. Hematology evaluation scheduled for 09/18. Patient Active Problem List Diagnosis Code Type [...] artery ([facility]) I72.0 Aortic atherosclerosis (HCC) I70.0 Chronic kidney [...] TIA (transient ischemic attack) Z86.73 Atherosclerosis of lumbee coronary artery without angina pectoris I25.10 S/P [...] MOUTH EVERY DAY DIRECTED 100Tablet 3 Ipratropium [place] 0.03 % Nasal Solution (Atrovent) Administer 2 [...] mouth at bedtime. 90 Tablet 3 Tiotropium [place]-Olodaterol 2.5-2.5 MCG/ACT Inhalation Aerosol Solution (Stiolto Respimat) Inhale2 Puffs by mouth in the morning. 12 g 3 Levothyroxine Sodium 125 MCG Oral Tablet (Levoxyl) TAKE ONE TABLET BY MOUTH FIRST THING IN THE MORNING 100 Tablet 3 Clopidogrel Bisulfate 75 MG Oral Tablet (pLAVix) Take 1 Tablet by mouth every evening. 30 Tablet 5 Torsemide 10 MG Oral Tablet (Demadex) Take [...] 0.5 Tablets by mouth in the morning. Use It Better Verio w/Device Kit Use up to 1 times a day. E11.9 1 Kit 0 OneTouch Verio In Vitro Strip (Glucose Blood) Test blood sugars up to 2 times a day E11.9 200 Strip3 No current facility-administered medications for this visit. Current and discharge medications have been reconciled. [...] Azithromycin Other (Please comment) QTC prolongation at [facility] Nickel Swelling Other reaction(s): Unknown OBJECTIVE: BP 118/60 | Pulse 61 | Temp 35.8 C (96.4 F) | Ht 1.651 m (5' 5") | Wt 72.8 kg (160 lb 6.4 oz) |SpO2 98% | BMI 26.69 kg/m | BSA 1.83 m REVIEW OF SYSTEMS: Review of Systems Constitutional: Positive for fatigue. Negative for appetite change, fever and unexpected weight change. Respiratory: Negative for cough, shortness of breath and wheezing. Cardiovascular: Negative for chest pain, palpitations and leg swelling. Gastrointestinal: Negative for abdominal pain, blood in stool, constipation, diarrhea, nausea and vomiting. Genitourinary: Negative for dysuria and hematuria. Musculoskeletal: Positive for back pain and gait problem. Neurological: Positive for tremors and weakness. Negative for dizziness, speech difficulty and headaches. Psychiatric/Behavioral: Positive for dysphoric mood. Negative for confusion, decreased concentration, sleep disturbance and suicidal ideas. The patient is not nervous/anxious. PHYSICAL EXAM: BP 118/60 | Pulse 61 | Temp 35.8 C (96.4 F) | Ht 1.651 m (5' 5") | Wt 72.8 kg (160 lb 6.4 oz) |SpO2 98% | BMI 26.69 kg/m | BSA 1.83 m Physical Exam Vitals and nursing note reviewed. Constitutional: General: She is not in acute distress. Appearance: She is normal weight. She is not toxic-appearing. HENT: Head: Normocephalic [...] No edema. Neurological: Mental Status: She is oriented to person, place, and time. Mental status is at baseline. Motor: Weakness present. Gait: Gait abnormal. Comments: Generalized bilateral lower extremity weakness Psychiatric: Mood and Affect: Mood is depressed. Affect is flat. ASSESSMENT/PLAN Thrombus of left atrial appendage (Primary) Continue ASA and Clopidogrel No anticcoagulation due to previous bleeding Keep appointment with Hematology / Oncology as scheduled Type 2 diabetes mellitus with stage 3b chronic kidney disease, without long-term current use of insulin (HCC) - COMPREHENSIVE METABOLIC PANEL; Future; Expected date: 09/15/2023 Diet controlled currently Symptomatic anemia S/P transfusion 2 units PRBC Treated with IV Venofer for 5 days while hospitalized Generalized weakness PT as tolerated Paroxysmal atrial fibrillation (HCC) Continue Sotalol No anticoagulation due to history of bleeding Iron deficiency anemia due to chronic blood loss - CBC WITH WBC DIFFERENTIAL; Future; Expected date: 09/15/2023 - IRON SCREEN, INCLUDING TIBC; Future; Expected date: 09/15/2023 - FERRITIN; Future; Expected date: 09/15/2023 Pulmonary hypertension (HCC) Secondary hyperparathyroidism, renal (HCC) PVD (peripheral vascular disease) (HCC) Chronic diastolic CHF (congestive heart failure) (HCC) Continue Torsemide Acquired hypothyroidism - TSH WITH FREE T4 IF INDICATED; Future; Expected date: 09/15/2023 Continue levothyroxine Tremor Angiodysplasia of colon with hemorrhage Current moderate episode of major depressive disorder without prior episode (HCC) Increase Sertraline back to 150 mg daily Moderate persistent asthma without complication Gastro-esophageal reflux disease without esophagitis Continue Pantoprazole Cardiac pacemaker in situ History of TIA (transient ischemic attack) Continue ASA, and Clopidogrel Atherosclerosis of lumbee coronary artery of lumbee heart without angina pectoris Continue ASA S/P mitral valve clip implantation Presence of Watchman left atrial appendage closure device Type 2 diabetes mellitus with hemoglobin A1c goal of less than 7.0% ([facility]) - DIABETES FOOT EXAM Need for pneumococcal vaccination - PNEUMOCOCCAL VACC, PCV20, IM ([id number]) Hospital discharge follow-up - DISCH MED RECON CUR MED LIS Follow Up: Return in about 2 weeks (around 09/29/2023), or if symptoms worsen or fail to improve. I spent a total of 40-54 minutes (exact time 53 mins) minutes on the date of service in preparation, delivery, and documentation of the care provided to Inga Barakat excluding any time spent in performance of separately billed services. Florentin Calvo DO * Hilda Awad LPN - 09/15/2023 3:54 PM EST If standing feels like she is falling back. States that her both of her legs are painfu. Back is painful if she stands too long. Daughter states patient is complaining of weak legs. Socks and Shoes Removed for Annual Diabetic Foot Screening RIGHT FOOT: No Reddened, Cracking, Or Open Areas Noted. RIGHT Dorsalis Pedis Pulse: Palpable RIGHT Posterior Tibial Pulse: Palpable RIGHT Monofilament:Patient reports feeling monofilament pressure on plantar surface of foot States bilateral feet numb, feels like walking on rocks LEFT FOOT: No Reddened, Cracking or Open Areas Noted. LEFT Dorsalis Pedis Pulse: Palpable LEFT Posterior Tibial Pulse: Palpable LEFT Monofilament:Patient reports feeling monofilament pressure on plantar surface of foot Do you need diabetic shoes: N/A DM Foot Exam completed today. Provider aware. Hilda Awad LPN * Veronique Batista RPh - 09/15/2023 3:25 PM EST Sertraline - 50mg instead of 150mg? Okay to go back to 150mg Plavix moved to night time in [facility] - okay to move back to morning Lorazepam discontinued in transition from [facility] to [facility]. documented in this encounter Miscellaneous Notes * Result Encounter Note - Ania Kebede LPN - 09/16/2023 1:33 PM EST Spoke to patient's son - see phone encounter. documented in this encounter Plan of Treatment Upcoming Encounters Date Type Department Care Team (Late st Contact Info) Description 09/18/2023 9:30 AM EST Office Visit Hematology/Oncology [facility] [place] [address] [place] [address] Nereyda Metz CRNP [address] [place] [address] 09/29/2023 9:20 AM EST Office Visit [address] [place] [address] Florentin Calvo, DO 293 [place] [address] 10/06/2023 8:30 AM EST Office Visit Cardiology, [facility] [address] [place] [address] Stephen Hewitt, DO [address] [facility] [address] 10/14/2023 2:30 PM EST Office Visit Hematology/Oncology [facility] 200 [facility], [place] [address] Nereyda Metz CRNP [address] [place] [address] 11/04/2023 11:00 AM EDT Office Visit [facility] [address] Cheri Castillo PA-C 132 [facility] [place] [address] 11/20/2023 3:00 PM EDT Office Visit Gynecology/Oncology, [place] [address] [place] [address] Vanessa Elena PA-C [address] [place] [address] 12/08/2023 2:20 PM EDT Office Visit Family Practice [address] [place] [address] [address] [place] [phone] Florentin Calvo, DO [address] [place] [address] 01/21/2024 2:40 PM EDT Office Visit Otolaryngology [facility] 132 [facility] [place] [address] Cheri Castillo PA-C [address] [facility] [place] [address] 02/17/2024 3:30 PM EDT Office Visit Nephrology, [facility] 200 [facility] [place] [address] ZemaMicehlle churchill PA-C [facility] [address] 06/03/2024 2:15 PM EDT Office Visit Ophthalmology, [facility] 132 [facility] [place] [address] Wilbur Benavides, DO [address] [place] [address] 08/09/2024 1:00 PM EST Nurse Only Ancillary 65 [facility] 293 [place] [address] College, Nurse Annual Wellness Visit [address] [place] [address] Health Maintenance Due Date Last Done Comments Hepatitis B (1 of 3 - Risk 3-dose series) 2000 HbA1c 02/14/2024 2023, 01/25, 08/27/2022, Additional history exists Albumin/Creatinine Ratio 02/22/2024 023, 05/01/2022, 10/26/2021, Additional history exists GFR 03/15/2024 09/15/2023, 08/25, 08/21/2023, Additional history exists Diabetic Eye Exam 05/22/2024 05/22/2023, , 05/22/2023, Additional history exists CKD PHOS USE SMARTSET 39119 08/19/202407/26, 05/01/2022, 04/03/2022, Additional history exists CKD HGB USE SMARTSET 24244 09/15/202409/15, 09/15/2023, 09/08/2023, Additional history exists Depression [...] this encounter Medical Devices Implanted Type Area Tin Flipper Device Identifier Shelf Expiration Date Model / Serial / Lot Cath Thermodilution 6fr - [id number] Implanted:Qty: 1 on 01/24/2023 by Wilbur Rivera MD at [facility] [employer] [id number] 10/15/2024 [id number] / / [id number] Mirtaclip G4 - [id number] Implanted:Qty: 1 on 03/10/2023 at [facility] [employer] 11/19/2023 [id number] / / [id number] Device Watchman Flx 31mm - [id number] Implanted:Qty: 1 on 07/31/2023 by Wilbur Rivera MD at [facility] [employer] : INTRV CARD [id number] 12/02/2025 [id number] documented as of this encounter Procedures Procedure Name Priority Date/Time Associated Diagnosis Comments DIFFERENTIAL, AUTOMATED Routine 09/15/2023 5:16 PM EST Iron deficiency anemia due to chronic blood loss TSH WITH FREE T4 IF INDICATED Routine 09/15/2023 5:16 PM EST Acquired hypothyroidism COMPREHENSIVE METABOLIC PANEL Routine 09/15/2023 5:16 PM EST Type 2 diabetes mellitus with stage 3b chronic kidney disease, without long-term current use of insulin (HCC) IRON SCREEN, INCLUDING TIBC Routine 09/15/2023 5:16 PM EST Iron deficiency anemia due to chronic blood loss CBC Routine 09/15/2023 5:16 PM EST Iron deficiency anemia due to chronic blood loss CBC Routine 09/15/2023 5:16 PM EST Iron deficiency anemia due to chronic blood loss T4, FREE Routine 09/15/2023 5:16 PM EST Acquired hypothyroidism FERRITIN Routine 09/15/2023 5:16 PM EST Iron deficiency anemia due to chronic blood loss documented in this encounter Results * T4, FREE (09/15/2023 5:16 PM EST) T4, Free 1.3 0.9 - 1.7 ng/dL 09/16/2023 7:11 AM EST [facility]ATORY [facility] Blood Venous blood specimen / Unknown Venipuncture / Unknown 09/15/2023 5:16 PM EST 09/15/2023 5:16 PM EST Florentin David Calvo LAB BLOOD ORDERABLES [facility] [address] [place] [address] * (ABNORMAL) DIFFERENTIAL, AUTOMATED (09/15/2023 5:16 PM EST) WBC 8.48 4.00 - 10.80 K/uL 09/15/2023 11:55 PM EST LAB[facility] Neutrophils % 70.4 40.0 - 75.0 % 09/15/2023 11:55 PM EST LAB[facility]AT[facility] Lymphocytes % 13.0(L) 18.0 - 42.0 % 09/15/2023 11:55 PM EST [facility] Monocytes % 9.6 1.0 - 11.0 % 09/15/2023 11:55 PM EST [facility] Eosinophils % 5.7 0.0 - 6.0 % 09/15/2023 11:55 PM EST [facility] Basophils % 0.7 0.0 - 2.0 % 09/15/2023 11:55 PM EST LAB[facility] Immature Granulocytes % 0.6 0.0 - 2.0 % 09/15/2023 11:55 PM EST LAB[facility]ATORY [facility] Absolute Neutrophils 5.98 1.80 - 7.70 K/uL 09/15/2023 11:55 PM EST LAB[facility]ATORY [facility] Absolute Lymphocytes 1.10 1.00 - 4.80 K/ul 09/15/2023 11:55 PM EST LAB[facility]AT[facility] Absolute Monocytes 0.81 0.00 - 1.10 K/uL 09/15/2023 11:55 PM EST LAB[facility]AT[facility] Absolute Eosinophils 0.48 0.00 - 0.70 K/uL 09/15/2023 11:55 PM EST LAB[facility]AT[facility] Absolute Basophils 0.06 0.00 - 0.20 K/uL 09/15/2023 11:55 PM EST LAB[facility]ATORY [facility] Absolute Immature Granulocytes 0.05 0.00 - 0.20 K/uL 09/15/2023 11:55 PM EST LAB[facility] Blood Venous blood specimen / Unknown Venipuncture / Unknown 09/15/2023 5:16 PM EST 09/15/2023 5:16 PM EST Florentin Calvo DO LAB BLOOD ORDERABLES [facility]ORY [facility] [address] [place] [id number] * (ABNORMAL) CBC (09/15/2023 5:16 PM EST) Pathologist [facility] WBC 8.48 4.00 - 10.80 K/uL 09/15/2023 11:55 PM EST [facility] RBC 3.44 3.85 - 5.15 M/uL 09/15/2023 11:55 PM EST [facility] HGB 10.6(L) 12.0 - 15.3 g/dL 09/15/2023 11:55 PM EST [facility] HCT 34.9(L) 36.0 - 45.2 % 09/15/2023 11:55 PM EST [facility] MCV 101.5 81.5 - 97.5 fL 09/15/2023 11:55 PM EST [facility] MCH 30.8 27.0 - 34.0 pg 09/15/2023 11:55 PM EST LAB[facility] MCHC 30.4 32.0 - 36.0 g/dL 09/15/2023 11:55 PM EST [facility] RDW 16.4 11.5 - 15.5 % 09/15/2023 11:55 PM EST LAB[facility] PLT 241 140 - 400 K/uL 09/15/2023 11:55 PM EST [facility] MPV 10.3 6.6 - 11.1 fL 09/15/2023 11:55 PM EST LAB[facility] nRBCs 0 <=0 /100 WBCs 09/15/2023 11:55 PM EST LAB[facility] Blood Venous blood specimen / Unknown Venipuncture / Unknown 09/15/2023 5:16 PM EST 09/15/2023 5:16 PM EST Florentin Calvo DO LAB BLOOD ORDERABLES LABORATORY [facility] [address] [place] [address] * (ABNORMAL) COMPREHENSIVE METABOLIC PANEL (09/15/2023 5:16 PM EST) BUN 37(H) 6 - 20 mg/dL 09/16/2023 6:03 AM EST LAB[facility]ATORY [facility] Creatinine 2.1(H) 0.5 - 1.0 mg/dL 09/16/2023 6:03 AM EST LABORATORY GM Estimated Glomerular Filtration Rate 23(L) >=60 mL/min 09/16/2023 6:03 AM EST [facility] Comment:eGFR is calculated b ased on the CKD-EPI 2020 equation Sodium 140 135 - 146 mmol/L 09/16/2023 6:03 AM EST [facility] Potassium 4.9 3.5 - 5.1 mmol/L 09/16/2023 6:03 AM EST [facility] Chloride 103 98 - 107 mmol/L 09/16/2023 6:03 AM EST [facility] CO2 22 22 - 32 mmol/L 09/16/2023 6:03 AM EST [facility] Anion Gap 15 7 - 15 mmol/L 09/16/2023 6:03 AM EST [facility] Glucose 119 70 - 120 mg/dL 09/16/2023 6:03 AM EST [facility] Albumin 4.1 3.8 - 5.0 g/dL 09/16/2023 6:03 AM EST [facility] AST 50(H) 10 - 35 U/L 09/16/2023 6:03 AM EST [facility] Alkaline Phosphatase 218(H) 35 - 130 U/L 09/16/2023 6:03 AM EST LAB[facility] Bilirubin, Total 0.2 <=1.2 mg/dL 09/16/2023 6:03 AM EST [facility] Calcium 9.3 8.4 - 10.2 mg/dL 09/16/2023 6:03 AM EST [facility] Protein 6.5 6.0 - 8.3 g/dL 09/16/2023 6:03 AM EST [facility] ALT 34 10 - 35 U/L 09/16/2023 6:03 AM EST [facility] Blood Venous blood specimen / Unknown Venipuncture / Unknown 09/15/2023 5:16 PM EST 09/15/2023 5:16 PM EST Florentin Calvo DO LAB BLOOD ORDERABLES Performing Organization Address City/[facility] Co de Phone Number LABORATORY [facility] [address] [place] [address] * (ABNORMAL) FERRITIN (09/15/2023 5:16 PM EST) Pathologist [facility] Ferritin 1,278(H) 13 - 150 ng/mL 09/16/2023 6:46 AM EST LABORATORY [facility] Comment:Postmenopausal women have higher ferritin levels than pre-menopausal women. The above reference interval is based on pre-menopausal women. Blood Venous blood specimen / Unknown Venipuncture / Unknown 09/15/2023 5:16 PM EST 09/15/2023 5:16 PM EST Florentin Calvo DO LAB BLOOD ORDERABLES Performing Organization Address [facility] Co de Phone Number LABORATORY [facility] [address] [place] [address] * IRON SCREEN, INCLUDING TIBC (09/15/2023 5:16 PM EST) [facility] Iron 61 33 - 151 ug/dL 09/16/2023 6:03 AM EST LABORATORY [facility] Iron Binding Capacity 276 250 - 425 ug/dL 09/16/2023 6:03 AM EST LABORATORY [facility] Transferrin Saturation Percent 22 15 - 55 % 09/16/2023 6:03 AM EST LABORATORY [facility] Blood Venous blood specimen / Unknown Venipuncture / Unknown 09/15/2023 5:16 PM EST 09/15/2023 5:16 PM EST Florentin Calvo DO LAB BLOOD ORDERABLES Performing Organization Address City/[facility] Co de Phone Number LABORATORY [facility] [address] [place] [address] * (ABNORMAL) TSH WITH FREE T4 IF INDICATED (09/15/2023 5:16 PM EST) TSH 5.86(H) 0.27 - 4.20 uIU/mL 09/16/2023 6:46 AM EST LABORATORY [facility] Blood Venous blood specimen / Unknown Venipuncture / Unknown 09/15/2023 5:16 PM EST 09/15/2023 5:16 PM EST Florentin Calvo DO LAB BLOOD ORDERABLES LABORATORY [facility] [address] [place] [address] documented in this encounter Visit Diagnoses Diagnosis Thrombus of left atrial appendage- Primary Other ill-defined heart disease Type 2 diabetes mellitus with stage 3b chronic kidney disease, without long-term current use of insulin (HCC) Symptomatic anemia Generalized weakness Other malaise and fatigue Paroxysmal atrial fibrillation (HCC) Atrial fibrillation Iron deficiency anemia due to chronic blood loss Iron deficiency anemia secondary to blood loss (chronic) Pulmonary hypertension (HCC) Other chronic pulmonary heart diseases Secondary hyperparathyroidism, renal (HCC) Secondary hyperparathyroidism (of renal origin) PVD (peripheral vascular disease) (HCC) Peripheral vascular disease, unspecified Chronic diastolic CHF (congestive heart failure) (HCC) Chronic diastolic heart failure Acquired hypothyroidism Unspecified hypothyroidism Tremor Abnormal involuntary movements Angiodysplasia of colon with hemorrhage Angiodysplasia of intestine with hemorrhage Current moderate episode of major depressive disorder without prior episode (HCC) Moderate persistent asthma without complication Unspecified asthma Gastro-esophageal reflux disease without esophagitis Esophageal reflux Cardiac pacemaker in situ History of TIA (transient ischemic attack) Transient ischemic attack (TIA), and cerebral infarction without residual deficits Atherosclerosis of lumbee coronary artery of lumbee heart without angina pectoris S/P mitral valve clip implantation Presence of Watchman left atrial appendage closure device Type 2 diabetes mellitus with hemoglobin A1c goal of less than 7.0% (HCC) Need for pneumococcal vaccination Need for prophylactic vaccination against streptococcus pneumoniae (pneumococcus) Hospital discharge follow-up Other follow-up examination documented in this encounter Advance Directives Documents on File Type Date Recorded Patient Movie Extra Expl anation Advance Directives and Living Will 11/29/2022 ADVANCE DIRECTIVE / LIVING WILL Power of Renewable Energy Consultant 11/29/2022 POWER OF A TTORNEY Advance Directives and Living Will 10/24/2014 ADVANCE DIRECTIVE / LIVING WILL Power of Renewable Energy Consultant 10/24/2014 POWER OF A TTORNEY Latest [...] the patient have Health Care Power of Renewable Energy Consultant? No Code Status History Code Status Date [...] on File Name Relationship Healthcare Agent [facility] Communication Bright Barakat Adult Child Health Care Agen t (per Health Care Power of Renewable Energy Consultant document) Care Teams Extruding Press Adjuster Relationship Specialty Start Date End Date Florentin Calvo DO [address] [place] [address] PCP - General Internal Medicine 03/24/13 documented as of this encounter
--- OUTSIDE RECORDS SUMMARY | 2023-10-10 09:36 | External Medical Summary ---
Author Name Unknown Address Unknown Organization K01:LABORATORY [facility] - [address] [place] [address] Laboratory Report Ordering Provider Test Date Status ANTONIO EDMONDS 09/15/2023 17:16:05 Final Observation Date Value Abnormality Reference (Units ) Status WBC, Total 09/15/2023 17:16:05 8.48 4.00-10.80 (K/uL) Final RBC 09/15/2023 17:16:05 3.44 3.85-5.15 (M/uL) Final Hemoglobin 09/15/2023 17:16:05 10.6 Below low normal 12.0-15.3 (g/dL) Final HCT 09/15/2023 17:16:05 34.9 Below low normal 36.0-45.2 (%) Final MCV 09/15/2023 17:16:05 101.5 81.5-97.5 (fL) Final MCH 09/15/2023 17:16:05 30.8 27.0-34.0 (pg) Final MCHC 09/15/2023 17:16:05 30.4 32.0-36.0 (g/dL) Final RDW 09/15/2023 17:16:05 16.4 11.5-15.5 (%) Final Platelets 09/15/2023 17:16:05 241 140-400 (K/uL) Final MPV 09/15/2023 17:16:05 10.3 6.6-11.1 (fL) Final Nucleated erythrocytes/100 leukocytes [Ratio] in Blood by Automated count 09/15/2023 17:16:05 0 <=0 (/100 WBCs) Final Performing Location LABORATORY [facility] - [address] [place] [address]
--- OUTSIDE RECORDS SUMMARY | 2023-10-10 09:36 | External Medical Summary | Summary of Care ---
Author Name Unknown Organization [facility] Address [address] [place] [address] Phone [phone] Care Team Providers Care Telemarketer Supervisor Name Role Phone Florentin Calvo DO Primary Care Provider [phone] Reason for Visit * Reason Onset Date Comments [facility]: Maintenance 09/12/2023 Encounter Details Date Type Department Care Team (Late st Contact Info) Description 09/12/2023 Telephone [facility], [facility] [address] [facility] [place] [address] [facility], Nurse [facility] [address] [facility] [place] [address] [facility]: Maintenance Allergies Active Allergy [...] as of this encounter (statuses as of 09/15/2023) Medications Medication Sig Dispensed Refills Start Date End Date Status SampaTouch Verio w/Device KitIndications:Type 2 diabetes mellitus with hemoglobin A1c goal of less than 7.0% ([facility]) Use up to 1 times [...] Oral Tablet (Lipitor)Indication s:PVD (peripheral vascular disease) ([facility]),Type 2 diabetes mellitus with stage 3a chronic kidney disease and hypertension ([facility]) TAKE ONE TABLET BY MOUTH EVERY DAY DIRECTED 100 Tablet 3 03/31/2023 Active Ipratropium Ross 0.03 % Nasal Solution (Atrovent)Indicatio ns:Chronic rhinitis [...] bedtime. 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 No-[place] can hear w/ hearing aid 03/07/2023 Are [...] encounter Miscellaneous Notes * Telephone Encounter - Nely Goldstein LPN - 09/12/2023 10:57 AM EST TT received today patient was discharged today 09/12/22 RRS score 15 TT was sent [facility] scheduling role documented in this encounter Plan of Treatment Upcoming Encounters Date Type Department Care Team (Late st Contact Info) Description 09/18/2023 9:30 AM EST Office Visit Hematology/Oncology [facility] [place] [address] [place], [place] [address] Nereyda Metz CRNP 400 [facility] [place] [address] 10/06/2023 8:30 AM EST Office Visit [facility], [facility] [address] Stephen Hewitt, DO [facility] [place] [address] 10/14/2023 2:30 PM EST Office Visit Hematology/Oncology [facility] [address] [facility], [place] [address] Nereyda Metz CRNP 400 [place] [address] 11/04/2023 11:00 AM EDT Office Visit [facility] [address] Cheri Castillo PA-C 132 [place] [address] 11/20/2023 3:00 PM EDT Office Visit Gynecology/Oncology, [place] [address] [place] [address] Vanessa Elena PA-C [address] [place] [address] 12/08/2023 2:20 PM EDT Office Visit Family Practice 65 [facility] [place] 293 [facility], [place] [address] Florentin Calvo, DO 293 [facility], [place] [address] 01/21/2024 2:40 PM EDT Office Visit Otolaryngology [facility] 132 [facility] [place] [address] Cheri Castillo PA-C 132 [facility] [place] [address] 02/17/2024 3:30 PM EDT Office Visit Nephrology, [facility] 200 [facility] [place] [address] Zemaitis, [place] Amezquita PA-C 200 [facility] [place] [address] 06/03/2024 2:15 PM EDT Office Visit Ophthalmology, [facility] 132 [facility] [place] [address] Wilbur Benavides, DO 21 [facility] [place] [address] 08/09/2024 1:00 PM EST Nurse Only Ancillary 65 [facility] 293 [facility] [place] [address] College, Nurse Annual Wellness Visit [address] [place] [address] Scheduled Procedures Name Priority Associated Diagnoses Date/Ti me OBSERVATION Presence of Watchman left atrial appendage closure device 09/15/2023 9:30 AM EST Health Maintenance Due Date Last Done Comments Hepatitis B (1 of 3 - Risk 3-dose series) 2000 TSH 09/24/2023 09/24/2022, 10/2022, 02/12/2022, Additional history exists HbA1c 02/14/2024 2023, 01/25, 08/27/2022, Additional history exists Albumin/Creatinine Ratio 02/22/2024 023, 05/01/2022, 10/26/2021, Additional history exists GFR 03/08/2024 09/08/2023, 07/26, 08/20/2023, Additional history exists Diabetic Eye Exam 05/22/2024 05/22/2023, , 05/22/2023, Additional history exists CKD PHOS USE SMARTSET 00149 08/19/202407/26, 05/01/2022, 04/03/2022, Additional history exists CKD HGB USE SMARTSET 45160 09/08/202409/08, 08/20/2023, 08/20/2023, Additional history exists Depression Screening 09/15/2024 09/15/2023 Diabetic Foot Exam 09/15/2024 09/15/2023, 0 10/01/2022, 10/26/2021, Additional history exists DXA Scan 05/07/2025 05/07/2021, [...] this encounter Medical Devices Implanted Type Area Petroleum Geologist Device Identifier Shelf Expiration Date Model / Serial / Lot Cath Thermodilution 6fr - [id number] Implanted:Qty: 1 on 01/24/2023 by Wilbur Rivera MD at [facility] [employer] TERE [id number] 10/15/2024 [id number] / / [id number] Mirtaclip G4 - [id number] Implanted:Qty: 1 on 03/10/2023 at [facility] 11/19/2023 [id number] / / [id number] Device Watchman Flx 31mm - [id number] Implanted:Qty: 1 on 07/31/2023 by Wilbur Rivera MD at [facility] Liquid[employer] : INTRV CARD [id number] 12/02/2025 [id number] / / [id number] documented as of this encounter Advance Directives Documents on File Type Date Recorded Patient Tooth Polisher Expl anation Advance Directives and Living Will 11/29/2022 ADVANCE DIRECTIVE / LIVING WILL Power of Commonwealth Attorney 11/29/2022 POWER OF A TTORNEY Advance Directives and Living Will 10/24/2014 ADVANCE DIRECTIVE / LIVING WILL Power of Commonwealth Attorney 10/24/2014 POWER OF A TTORNEY Latest Code [...] the patient have Health Care Power of Commonwealth Attorney? No Code Status History Code Status Date [...] Agen t (per Health Care Power of Commonwealth Attorney document) Care Teams Telemarketer Supervisor Relationship Specialty Start Date End Date Florentin Calvo DO [address] [place] [address] PCP - General Internal Medicine 03/24/13 documented as of this encounter
--- OUTSIDE RECORDS SUMMARY | 2023-10-10 09:36 | External Medical Summary ---
Author Name Unknown Address Unknown Organization K01:LABORATORY [facility] - [address] [place] [address] Laboratory Report Ordering Provider Test Date Status ANTONIO EDMONDS 09/15/2023 17:16:05 Final Observation Date Value Abnormality Reference (Units ) Status Iron 09/15/2023 17:16:05 61 33-151 (ug /dL) Final Iron-binding capacity 09/15/2023 17:16:05 276 250-425 (ug/dL) Final Transferrin Sat % 09/15/2023 17:16:05 22 15 -55 (%) Final Performing Location LABORATORY C - [address] [place] [address]
--- OUTSIDE RECORDS SUMMARY | 2023-10-10 09:36 | External Medical Summary | Summary of Care ---
Author Name Unknown Organization [facility] Address [address] [place] [address] Phone [phone] Care Team Providers Care Residential Fee Appraiser Name Role Phone Florentin Calvo DO Primary Care Provider [phone] Reason for Visit * Reason Onset Date Comments Test Results 09/16/202309/16 Encounter Details Date Type Department Care Team (Late st Contact Info) Description 09/16/2023 Telephone Family Practice 65 [facility] [place] [address] [place] [address] Florentin Calvo DO [address] [place] [address] Test Results (09/16) Allergies Active Allergy Reactions Criticality Noted Date [...] Dispensed Refills Start Date End Date Status Aeris CommunicationsTouch Verio w/Device KitIndications:Type 2 diabetes mellitus with [...] DIRECTED 100 Tablet 3 03/31/2023 Active Ipratropium Elburn 0.03 % Nasal Solution (Atrovent)Indicatio ns:Chronic rhinitis [...] bedtime. 90 Tablet 3 05/16/2023 Active Tiotropium [place]burn-Olodaterol 2.5-2.5 MCG/ACT Inhalation Aerosol Solution (Stiolto Respimat) [...] Obstructive sleep apnea of adult 09/09/2014 Overview: CARE MANAGEMENT ASSOCIATE Last Assessment & Plan: Now just using [...] or do you have serious difficulty hearing? No-[place] can hear w/ hearing aid 03/07/2023 Are [...] Miscellaneous Notes * Telephone Encounter - Ania Kebede LPN - 09/16/2023 1:32 PM EST Call placed to patient, spoke to son Bright and relayed information from Dr. Calvo. Bright acknowledged understanding. No questions at this time. * Telephone Encounter - Ania Kebede LPN - 09/16/2023 1:30 PM EST ----- Message from Florentin Calvo DO sent at 09/16/2023 9:34 AM EST ----- Anemia improved Iron level is good. TSH slightly abnormal due to acute illness Renal function is stable. Continue current medications. Keep visit with Hematology /Oncology documented in this encounter Plan of Treatment Upcoming Encounters Date Type Department Care Team (Late st Contact Info) Description 09/18/2023 9:30 AM EST Office Visit Hematology/Oncology [facility] 200 [facility] [place] [address] Nereyda Metz CRNP [address] [place] [address] 09/29/2023 9:20 AM EST Office Visit Family Practice [address] [place] [address] 293 [facility], [place] [address] Florentin Calvo DO 293 [facility], [place] [address] 10/06/2023 8:30 AM EST Office Visit Cardiology, [facility] 132 [facility] [place] [address] Stephen Hewitt DO 132 [facility] [place] [address] 10/14/2023 2:30 PM EST Office Visit Hematology/Oncology [facility] 200 [facility] [place] [address] Nereyda Metz CRNP 400 [place] [address] 11/04/2023 11:00 AM EDT Office Visit Otolaryngology [facility] [address] [place] [address] Cheri Castillo PA-C [address] [place] [address] 11/20/2023 3:00 PM EDT Office Visit Gynecology/Oncology, [place] [address] [place] [address] Vanessa Elena PA-C [address] [place] [address] 12/08/2023 2:20 PM EDT Office Visit Family Practice 65 [facility] 293 [facility] [address] Florentin Calvo, 293 [place] [address] 01/21/2024 2:40 PM EDT Office Visit Otolaryngology [facility] 132 [facility] [place] [address] Cheri Castillo PA-C 132 [facility] [place] [address] 02/17/2024 3:30 PM EDT Office Visit Nephrology, [facility] 200 [facility] [address] ZemaMichelle churchill PA-C 200 [place] [address] 06/03/2024 2:15 PM EDT Office Visit Ophthalmology, [facility] 132 [facility] [place] [address] Wilbur Benavides, DO 21 [place] [address] 08/09/2024 1:00 PM EST Nurse Only Ancillary 65 [facility] 293 [place] [address] College, Nurse Annual Wellness Visit [address], [place] [address] Health Maintenance Due Date Last Done Comments Hepatitis B (1 of 3 - Risk 3-dose series) 2000 HbA1c 02/14/2024 2023, 01/25, 08/27/2022, Additional history exists Albumin/Creatinine Ratio 02/22/2024 023, 05/01/2022, 10/26/2021, Additional history exists GFR 03/15/2024 09/15/2023, 08/25, 08/21/2023, Additional history exists Diabetic Eye Exam 05/22/2024 05/22/2023, , 05/22/2023, Additional history exists CKD PHOS USE SMARTSET 59823 08/19/202407/26, 05/01/2022, 04/03/2022, Additional history exists CKD HGB USE SMARTSET 65943 09/15/202409/15, 09/15/2023, 09/08/2023, Additional history exists Depression [...] this encounter Medical Devices Implanted Type Area Warranty Administrator Device Identifier Shelf Expiration Date Model / Serial / Lot Cath Thermodilution 6fr - [id number] Implanted:Qty: 1 on 01/24/2023 by Wilbur Rivera MD at [facility] [employer] [id number] 10/15/2024 [id number] / / [id number] Mirtaclip G4 - [id number] Implanted:Qty: 1 on 03/10/2023 at [facility] [employer] 11/19/2023 [id number] / / [id number] Device Watchman Flx 31mm - [id number] Implanted:Qty: 1 on 07/31/2023 by Wilbur Rivera MD at [facility] [employer] : INTRV CARD [id number] 12/02/2025 [id number] / / [id number] documented as of this encounter Advance Directives Documents on File Type Date Recorded Patient Sandstone Inspector Repairer Expl anation Advance Directives and Living Will 11/29/2022 ADVANCE DIRECTIVE / LIVING WILL Power of Barrel And Receiver Aligner 11/29/2022 POWER OF A TTORNEY Advance Directives and Living Will 10/24/2014 ADVANCE DIRECTIVE / LIVING WILL Power of Barrel And Receiver Aligner 10/24/2014 POWER OF A TTORNEY Latest Code [...] the patient have Health Care Power of Barrel And Receiver Aligner? No Code Status History Code Status Date [...] on File Name Relationship Healthcare Agent [facility] Bright Barakat Adult Child Health Care Agen t (per Health Care Power of Barrel And Receiver Aligner document) Care Teams Residential Fee Appraiser Relationship Specialty Start Date End Date Florentin Calvo DO 293 [facility] [place] [address] PCP - General Internal Medicine 03/24/13 documented as of this encounter
--- OUTSIDE RECORDS SUMMARY | 2023-10-10 09:36 | External Medical Summary | Summary of Care ---
Author Name Unknown Organization [facility] Address [address] [place] [address] Phone [phone] Care Team Providers Care Envelope Stuffer Name Role Phone Florentin Calvo DO Primary Care Provider [phone] Reason for Referral * Precert (Within 10 days (routine)) - Authorized Specialty Diagnoses / Procedures Referred By Contac t Referred To Contact Cardiac Studies Diagnoses Presence of Watchman left atrial appendage closure device Procedures TRANSESOPHAGEAL ECHO (COMPLETE) Pedro Ruiz DNP [address] [place] [address] Referral ID Status Reason Start Date Expiration Date V isits Requested Visits Authorized [id number] Authorized Precert 09/15/2023 999 999 Reason for Visit * Precert (Within 10 days (routine)) - Authorized Specialty Diagnoses / Procedures Referred By Contac t Referred To Contact Cardiac Studies Diagnoses Presence of Watchman left atrial appendage closure device Procedures TRANSESOPHAGEAL ECHO (COMPLETE) Pedro Ruzi DNP [address] [place] [address] Referral ID Status Reason Start Date Expiration Date V isits Requested Visits Authorized [id number] Authorized Precert 09/15/2023 999 999 Encounter Details Date Type Department Care Team (Latest Contact Info) Description 09/15/2023 7:32 AM EST - 09/15/2023 7:35 AM EST Hospital Encounter Cardiac Studies [place] [phone] Discharge Disposition: Home - Self Care Allergies [...] DIRECTED 100 Tablet 3 03/31/2023 Active Ipratropium [place] 0.03 % Nasal Solution (Atrovent)Indicatio ns:Chronic rhinitis [...] bedtime. 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 No-[place] can hear w/ hearing aid 03/07/2023 Are [...] No 03/07/2023 documented as of this encounter H&P Notes * Donnie Martinez MD - 09/15/2023 8:00 AM EST GENERAL HISTORY & PHYSICAL EXAMINATION - Cardiology [address] [address] Name: Inga Barakat Location: Room/bed info not found Date: 09/15/2023 Time: 8:40 AM PRESENTING PROBLEM: BRENDAN HPI: Ms. Barakat is an 83 year old female with a history of HFpEF Atrial fibrillation s/p 31mm Watchman device implantation Severe mitral regurgitation s/p Mitraclip x2 PPM pHN Aneurysm of left carotid artery CKD Patient presents for a BERNDAN to evaluate her Watchman device implanted on July 31, 2023. SOCIAL HISTORY: Social History Tobacco Use Smoking status: Former Packs/day: 1.25 Years: 18.00 Additional pack years: 0.00 Total pack years: 22.50 Types: Cigarettes Quit date: 12/29/1978 Years since quittin.7 Passive exposure: Past Smokeless tobacco: Never Vaping Use Vaping Use: Never used Substance Use Topics Alcohol use: No Drug use: No CURRENT HOSPITAL MEDICATIONS: Note that completed medications (per MAR) continue to display for 24 hours. Ordered medications to be given in the future also display. Current Facility-Administered Medications Medication Dose Route Frequency Provider benzocaine (topical) (Hurricaine) 20 % spray 2 [place] 2 [place] Topical PRN Donnie Martinez MD No current outpatient medications on file. ALLERGIES: Celecoxib, Cephalexin, Dexamethasone, Furosemide, Gabapentin, Meclizine, Methylprednisolone, Penicillins, Prednisone, Pregabalin, Sulfa antibiotics, Vancomycin, Ranitidine, Azithromycin, and Nickel ROS: Negative PHYSICAL EXAMINATION: Most Recent Vital Signs: BP: 129 mmHg/54 mmHg (09/15/23824) Pulse: 66 (09/15/23824) Temp: Resp: 20 (09/15/23824) SpO2: 99 % (09/15/23 0825) General: Aox3, pleasant, well appearing HEENT: Normocephalic, Atruamatic Respiratory: Clear breath sounds bilaterally, no wheezes, rhonchi or rales appreciated Cardiac: RRR, Normal S1, S2, no murmurs, rubs or gallops Extremities: No lower extremity edema Psych: Cooperative, appropriate mood and affect LABS: Labs reviewed IMPRESSION and PLAN: Plan for BRENDAN as above. I saw and evaluated the patient today. I have reviewed the trainee note and agree. Donnie Martinez MD 09/15/2023 12:05 PM documented in this encounter Nursing Notes * Chelsie Sneed RN - 09/15/2023 9:16 AM EST Consent signed: 0837 Time out: 0849 [place] time: 0850 First sedation dose: 0853 Last sedation dose: 0857 Probe insertion time: 0856 Probe out time: 09 End monitoring time: 09 Total versed dose: 1.5 mg Total Fentanyl Dose: 50 mcg Probe number: [id number] Report given to Mary Ann in CRS documented in this encounter Miscellaneous Notes * Pre-Sedation Assessment - Donnie Martinez MD - 09/15/2023 8:00 AM EST PRE-SEDATION ASSESSMENT PRE-SEDATION ASSESSMENT: Tranesophageal Echocardiogram Level of sedation planned: Moderate Patient's allergies reviewed: Yes H&P Review / Interval Note Documentation: I have reviewed the H&P previously performed, examined the patient today, and there are no new findings. Interval H&P completed Difficulty with sedation / anesthesia: No Sleep apnea: Yes History of snoring: Yes History of difficult intubation: No Decreased ROM neck flexion/extension: No Tracheal deviation: No Decreased ability to open mouth / TMJ: No Loose teeth / dentures / partial: No Congenital deformities / abnormalities: No Dysphagia: No Mallampati Classification: III - soft palate, base of uvula visible Chest: Clear Heart: Regular Rhythm Adequate Vascular Access: Yes ASA Risk Stratification (Select One): ASA 2 - Mild systemic disease, no functional limitations The patient was identified and the procedure verified: Yes The patient was reevaluated immediately prior to the sedation: 09/15/2023 8:43 AM I saw and evaluated the patient today. I have reviewed the trainee note and agree. Donnie Martinez MD 09/15/2023 12:05 PM documented in this encounter Plan of Treatment Upcoming Encounters Date Type Department Care Team (Late st Contact Info) Description 09/18/2023 9:30 AM EST Office Visit Hematology/Oncology [facility] [address] [facility] [place] [address] Nereyda Metz CRNP [address] [facility] [place] [address] 10/06/2023 8:30 AM EST Office Visit Cardiology, [facility] [address] [place] [address] Stephen Hewitt DO [address] [place] [address] 10/14/2023 2:30 PM EST Office Visit Hematology/Oncology [facility] [address] [facility] [place] [address] Nereyda Metz [facility]NP [facility] [place] [address] 11/04/2023 11:00 AM EDT Office Visit Otolaryngology [facility] [address] [place] [address] Cheri Castillo PA-C [address] [place] [address] 11/20/2023 3:00 PM EDT Office Visit Gynecology/Oncology, [place] [address] [facility] [place] [address] Vanessa Elena PA-C [address] [place] [address] 12/08/2023 2:20 PM EDT Office Visit Family Practice [address] [facility] [address] [place] [address] Florentin Calvo, DO [address] [place] [address] 01/21/2024 2:40 PM EDT Office Visit Otolaryngology [facility] 132 [place] [address] Cheri Castillo PA-C 132 [facility] [place] [address] 02/17/2024 3:30 PM EDT Office Visit Nephrology, [facility] 200 [place] [address] ZemaitisMichelle PA-C 200 [place] [address] 06/03/2024 2:15 PM EDT Office Visit Ophthalmology, [facility] 132 [place] [address] Wilbur Benavides, DO [address] [facility] [place] [address] 08/09/2024 1:00 PM EST Nurse Only Ancillary [address] [facility] 293 [place] [address] College, Nurse Annual Wellness Visit [address] [place] [address] Health Maintenance Due Date Last Done Comments Hepatitis B (1 of 3 - Risk 3-dose series) 2000 HbA1c 02/14/2024 2023, 01/25, 08/27/2022, Additional history exists Albumin/Creatinine Ratio 02/22/2024 023, 05/01/2022, 10/26/2021, Additional history exists GFR 03/15/2024 09/15/2023, 08/25, 08/21/2023, Additional history exists Diabetic Eye Exam 05/22/2024 05/22/2023, , 05/22/2023, Additional history exists CKD PHOS USE SMARTSET 78410 08/19/202407/26, 05/01/2022, 04/03/2022, Additional history exists CKD HGB USE SMARTSET 90402 09/15/202409/15, 09/15/2023, 09/08/2023, Additional history exists Depression [...] encounter Medical Devices Implanted Type Area Credit Control Administrator Device Identifier Shelf Expiration Date Model / Serial / Lot Cath Thermodilution 6fr - [id number] Implanted:Qty: 1 on 01/24/2023 by Wilbur Rivera MD at [facility] [employer]ERE [id number] 10/15/2024 [id number] / / [id number] Mirtaclip G4 - [id number] Implanted:Qty: 1 on 03/10/2023 at [facility] [employer] 11/19/2023 [id number] / / [id number] Device Watchman Flx 31mm - [id number] Implanted:Qty: 1 on 07/31/2023 by Wilbur Rivera MD at [facility] [employer] : INTRV CARD [id number] 12/02/2025 [id number] documented as of this encounter Procedures Procedure Name Priority Date/Time Associated Diagnosis Comments TRANSESOPHAGEAL ECHO (COMPLETE) Routine 09/15/2023 9:37 AM EST Presence of Watchman left atrial appendage closure device documented in this encounter Results * TRANSESOPHAGEAL ECHO (COMPLETE) (09/15/2023 9:37 AM EST) LEFT VENTRICULAR EJECTION FRACTION 60 % [facility] 09/15/2023 8:48 AM EST Pedro Ruiz DNP ECHOCARDIOLOGY [facility] CARDI[facility] documented in this encounter Visit Diagnoses Diagnosis Presence of Watchman left atrial appendage closure device documented in this encounter Administered Medications Inactive Administered Medications - up to 3 most recent administrations Medication Order MAR Action Action Date Dose Rate Site benzocaine (topical) (Hurricaine) 20 % spray 2 [place] 2 [place], Topical, PRN For Transesophageal Study Only, Intra-Op, Starting on Fri09/15/23 at 0820, Until Fri09/15/23 at 1019, For 2 hours, For Transesophageal Study Only, Intra-Op, Cardiac Studies_HODHOV Given 09/15/2023 8:50 AM EST 1 [place] fentaNYL (PF) inj ONCE PRN NARRATOR, Starting on Fri09/15/23 at 0853, Until Fri09/15/23 at 0853 Given 09/15/2023 8:53 AM EST 50 mcg midazolam (Versed) 2 MG/2ML inj ONCE PRN NARRATOR, Starting on Fri09/15/23 at 0853, Until Fri09/15/23 at 0857 Given 09/15/2023 8:57 AM EST 0.5 mg Given 09/15/2023 8:53 AM EST 1 mg documented in this encounter Advance Directives Documents on File Type Date Recorded Patient Safety Representative Expl anation Advance Directives and Living Will 11/29/2022 ADVANCE DIRECTIVE / LIVING WILL Power of Taker Away 11/29/2022 POWER OF A TTORNEY Advance Directives and Living Will 10/24/2014 ADVANCE DIRECTIVE / LIVING WILL Power of Taker Away 10/24/2014 POWER OF A TTORNEY Latest Code [...] the patient have Health Care Power of Taker Away? No Code Status History Code Status Date [...] Agen t (per Health Care Power of Taker Away document) Care Teams Envelope Stuffer Relationship Specialty Start Date End Date Florentin Calvo DO [address] [place] [address] PCP - General Internal Medicine 03/24/13 documented as of this encounter
--- OUTSIDE RECORDS SUMMARY | 2023-10-10 09:36 | External Medical Summary ---
Author Name Unknown Address Unknown Organization [id number]:[facility] [address] [facility] [address] Laboratory Report Ordering Provider Test Date Status ANTONIO EDMONDS 09/15/2023 17:16:05 Final Observation Date Value Abnormality Reference (Units ) Status BUN 09/15/2023 17:16:05 37 Above high normal 6-20 (mg/dL) Final Creatinine 09/15/2023 17:16:05 2.1 Above high normal 0.5-1.0 (mg/dL) Final Glomerular filtration rate/1.73 sq M.predicted [Volume Rate/Area] in Serum, Plasma or Blood by Creatinine-based formula (CKD-EPI) 09/15/2023 17:16:05 23 Below low normal >=60 (mL/min) Final eGFR is calculated based on the CKD-EPI 2020 equation SODIUM 09/15/2023 17:16:05 140 135-146 (m mol/L) Final Potassium 09/15/2023 17:16:05 4.9 3.5-5.1 (m mol/L) Final Cl 09/15/2023 17:16:05 103 98-107 (mm ol/L) Final CO2 09/15/2023 17:16:05 22 22-32 (mmo l/L) Final Anion gap 09/15/2023 17:16:05 15 7-15 (mmol /L) Final Glucose 09/15/2023 17:16:05 119 70-120 (mg /dL) Final Albumin 09/15/2023 17:16:05 4.1 3.8-5.0 (g /dL) Final AST (Aspartate aminotransferase) 09/15/2023 17:16:05 50 Above high normal 10-35 (U/L) Final Alk Phos 09/15/2023 17:16:05 218 Above high normal 35 -130 (U/L) Final Bilirubin, Total 09/15/2023 17:16:05 0.2 <=1 .2 (mg/dL) Final Calcium 09/15/2023 17:16:05 9.3 8.4-10.2 ( mg/dL) Final Protein 09/15/2023 17:16:05 6.5 6.0-8.3 (g /dL) Final ALT (Alanine aminotransferase) 09/15/2023 17:16:05 34 10-35 (U/L) Tarik polo Performing Location [facility] [place] [address] [facility] [address]
--- OUTSIDE RECORDS SUMMARY | 2023-10-10 09:36 | External Medical Summary | Summary of Care ---
Author Name Unknown Organization [facility] Address [address] [place] [address] Phone [phone] Care Team Providers Care Wood Machinist Name Role Phone Florentin Calvo DO Primary Care Provider [phone] Reason for Visit * Auth/Cert Specialty Diagnoses / Procedures Referred By Contac t Referred To Contact Diagnoses Presence of Watchman left atrial appendage closure device Presence of Watchman left atrial appendage closure device [Z95.818] Procedures OBSERVATION Referral ID Status Reason Start Date Expiration Date Visits Re quested Visits Authorized [id number] Encounter Details Date Type Department Care Team (Latest Contact Info) Description 09/15/2023 7:36 AM EST - 09/15/2023 1:31 PM EST Hospital Encounter CRS Waiting [facility], Cardiac Recovery Suite Waiting Unit, H [address] [place] [address] Teresa Hammond MD [address] [place] [address] Discharge Disposition: Home - Self Care Allergies Active Allergy Reactions Criticality Noted Date Comments Azithromycin Other (Please comment) 12/04/2021 QTC prolongation at [facility] Celecoxib Hives,Rash High 03/24/2013 [...] DIRECTED 100 Tablet 3 03/31/2023 Active Ipratropium [place] 0.03 % Nasal Solution (Atrovent)Indicatio ns:Chronic rhinitis [...] bedtime. 90 Tablet 3 05/16/2023 Active Tiotropium [place]-Olodaterol 2.5-2.5 MCG/ACT Inhalation Aerosol Solution (Stiolto Respimat) [...] mitral valve clip implantation 03/06/2023 Atherosclerosis of [place] 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 02/13/2023 Last Assessment & Plan: Continue statin, sotalol. 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 No-[place] can hear w/ hearing aid 03/07/2023 Are [...] Discharge Instructions * Discharge Instr - AVS* Carlos Pacheco MD - 09/15/2023 1:08 PM EST CRS Discharge Instructions for Conscious Sedation for BRENDAN You have received medication that sedated you during your Outpatient Procedure. This is considered conscious sedation. This medicine was given to relax you. It is also an anti-memory agent. You may not remember having the procedure done. This medicine may take up to 24 hours to be totally out of your system. Because of this you should observe the following for the next 24 hours: 1. NO Driving. 2. DO NOT operate any kind of heavy equipment. 3. DO NOT operate any type of machinery that requires hand-eye coordination. 4. DO NOT sign any legal papers or documents. 5. DO NOT make any financial decisions. 6. YOU SHOULD be in the presence of an adult for the remainder of the day. 7. DO NOT consume anything too hot or too cold. This is due to the numbing medicine sprayed in the back of your throat. 8. Your throat may feel sore for the next two days or so, you may use any kind of throat lozenge orcough drop to ease this discomfort. If you are experiencing any problem related to your procedure, you should contact your primary careprovider unless otherwise directed. documented in this encounter Progress Notes * Donnie Martinez MD - 09/15/2023 1:09 PM EST [facility] [address] [facility] [address] OUTPATIENT BRENDAN DISCHARGE SUMMARY NOTE Name: Inga Barakat Location: CATH/Cath Date: 09/15/2023 Time: 1:09 PM Procedure Date: 09/15/2023 Procedure: Transesophageal echocardiogram [BRENDAN] Indication: The patient is a(n) 83 year old female with atrial fibrillation s/p Watchman device placement on July 2023. Sedating physician: Drs. Martinez and Tara. Procedure physician: Drs. Martinez and Tara. Sedation was accomplished using 1.5mg versed and 50mcg of fentanyl. Any and all anesthetic medications were delivered under the direct supervision of a provider. Actual level of sedation: Moderate Adverse Outcome(s) during the procedure: None Sedation Start Time: 852 Sedation End Time: 856 Post Sedation Evaluation: Cardiovascular status: acceptable Level of consciousness: awake and alert Airway patency: patent Distress - NAD Hydration status - well hydrated Nausea/vomiting - not present Pain Evaluation Pain Assessment Flowsheet Row Most Recent Value Pain Assessment Scale [facility] Adult Scale 0-10 Pain Score 0 (no pain) Vital Signs: BP: 120/56 (09/15 1005) Pulse: 63 (09/15 1005) Resp: 15 (09/15 100) SpO2: 93 % (09/15 1004) Discharge Diagnosis: Cardiac thrombus, patient found to have a large protruding thrombus on the recently placed Watchman device. These results were discussed with patient and her daughter. Dr. Zhang was also notified of these results and spoke with patient. Patient tolerated procedure well. Vitals and oxygen saturations stable throughout. Patient was awake, appropriate and has no difficulty swallowing. After examination of this patient, I have determined she is ready for discharge to home when the patient meets criteria. Discharge instructions were given to the patient. Please review other procedure details under Notes in Chart Review. Patient was seen in the CRS and she denied an complaints. Patient and daughter stated they needed to leave right after their discussion with Dr. Zhang and they did not stay to be evaluated again. This was discussed with Dr Zhang. I saw and evaluated the patient today. I have reviewed the trainee note and agree. Donnie Martinez MD 09/15/2023 1:25 PM documented in this encounter Nursing Notes * Veronique Kwong, RN - 09/15/2023 1:27 PM EST Pt's daughter stated that she has a 3 pm appointment in [place] that she's can't miss and needs to go. Dr. Zhang was already at bedside to discuss BRENDAN results and plan of care. No medication changes at this time, patient is to remain on aspirin and plavix. Dr. Pacheco called and made aware that patient needs to leave, physician stated that patient may be discharged to home. * Veronique Kwong RN - 09/15/2023 12:[address] Zhang to see patient prior to discharge * Veronique Kwong RN - 09/15/2023 10:25 AM EST +gag reflex noted, tolerating PO intake well, VS stable, family at bedside. Dr. Pacheco paged to discharge patient. * Fauzia Sher LPN - 09/15/2023 9:42 AM EST 0935 - Received in CRS from Echo Lab. Telemetry on with limits set and alarms on. Call kearns in reach documented in this encounter Plan of Treatment Upcoming Encounters Date Type Department Care Team (Late st Contact Info) Description 09/18/2023 9:30 AM EST Office Visit Hematology/Oncology [address] [place] [address] Nereyda Metz CRNP [address] [place] [address] 10/06/2023 8:30 AM EST Office Visit Cardiology, [facility] [address] [place] [address] Stephen Hewitt, [address] [place] [address] 10/14/2023 2:30 PM EST Office Visit Hematology/Oncology [address] [place] [address] Nereyda Metz CRNP [address] [facility] [place] [address] 11/04/2023 11:00 AM EDT Office Visit [facility]ology [facility] [address] Cheri Castillo PA-C 132 [facility] [place] [address] 11/20/2023 3:00 PM EDT Office Visit Gynecology/Oncology, [place] [address] [place] [address] Vanessa Elena PA-C [address] [place] [address] 12/08/2023 2:20 PM EDT Office Visit Family Practice [address] [place] [address] [address] [place] [address] Florentin Calvo DO [address] [place] [address] 01/21/2024 2:40 PM EDT Office Visit Otolaryngology [facility] 132 [place] [address] Cheri Castillo PA-C 132 [facility] [place] [address] 02/17/2024 3:30 PM EDT Office Visit Nephrology, [facility] [address] [place] [address] ZemaMichelle churchill PA-C 200 [facility] [place] [address] 06/03/2024 2:15 PM EDT Office Visit Ophthalmology, [facility] [address] Wilbur Benavides DO [address] [facility] [address] [place] [address] 08/09/2024 1:00 PM EST Nurse Only Ancillary [address] [place] [address] [place] [address] College, Nurse Annual Wellness Visit [address] [place] [address] Health Maintenance Due Date Last Done Comments [...] Additional history exists CKD PHOS USE SMARTSET 20636 08/19/202407/26, 05/01/2022, 04/03/2022, Additional history exists CKD HGB USE SMARTSET 03871 09/08/202409/15, 09/15/2023, 09/08/2023, Additional history exists Depression Screening [...] this encounter Medical Devices Implanted Type Area Development Mgr Device Identifier Shelf Expiration Date Model / Serial / Lot Cath Thermodilution 6fr - [id number] Implanted:Qty: 1 on 01/24/2023 by Wilbur Rivera MD at [facility] [employer] [id number] 10/15/2024 [id number] / / [id number] Mirtaclip G4 - [id number] Implanted:Qty: 1 on 03/10/2023 at [facility] [employer] 11/19/2023 [id number] / / [id number] Device Watchman Flx 31mm - [id number] Implanted:Qty: 1 on 07/31/2023 by Wilbur Rivera MD at [facility] [employer] : INTRV CARD [id number] 12/02/2025 [id number] / / [id number] documented as of this encounter Advance Directives Documents on File Type Date Recorded Patient Deportation Officer Expl anation Advance Directives and Living Will 11/29/2022 ADVANCE DIRECTIVE / LIVING WILL Power of Industrial Refrigeration Mechanic 11/29/2022 POWER OF A TTORNEY Advance Directives and Living Will 10/24/2014 ADVANCE DIRECTIVE / LIVING WILL Power of Industrial Refrigeration Mechanic 10/24/2014 POWER OF A TTORNEY Latest [...] the patient have Health Care Power of Industrial Refrigeration Mechanic? No Code Status History Code Status Date [...] File Name Relationship Healthcare Agent [facility] Communication Bright [place] Adult Child Health Care Agen t (per Health Care Power of Industrial Refrigeration Mechanic document) Care Teams Wood Machinist Relationship Specialty Start Date End Date Florentin Calvo DO [address] [place] [address] PCP - General Internal Medicine 03/24/13 documented as of this encounter
--- OUTSIDE RECORDS SUMMARY | 2023-10-10 09:36 | External Medical Summary ---
Author Name Unknown Address Unknown Organization [id number]:[facility] [place] - [address] [place] [address] Laboratory Report Ordering Provider Test Date Status ANTONIO EDMONDS 09/15/2023 17:16:05 Final Observation Date Value Abnormality Reference (Units ) Status Ferritin 09/15/2023 17:16:05 1278 Above high normal 13 -150 (ng/mL) Final Postmenopausal women have hi gher ferritin levels than pre-menopausal women. The above reference interval is based on pre-menopausal women. Performing Location [facility] - [address] [place] [address]
--- OUTSIDE RECORDS SUMMARY | 2023-10-10 09:36 | External Medical Summary | Summary of Care ---
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 90 Tablet 3 05/16/2023 Active Tiotropium Mosca-Olodatero l 2.5-2.5 MCG/ACT Inhalation Aerosol Solution (Stiolto [...] mitral valve clip implantation 03/06/2023 Atherosclerosis of 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 02/13/2023 Last Assessment & Plan: Continue statin, sotalol. 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 No-[place] can hear w/ hearing aid 03/07/2023 [...] Wilbur Rivera MD MPH Interventional Cardiology Pager: [phone] 09/16/23 4:27 PM documented in this encounter Plan of Treatment Upcoming Encounters Date Type Department Care Team (Late st Contact Info) Description 09/18/2023 9:30 AM EST Office Visit Hematology/Oncology [facility] [address] [place] [address] Nereyda Metz CRNP [address] [place] [address] 09/29/2023 9:20 AM EST Office Visit Family [address] [place] [address] Florentin Calvo, DO [address] [place] [address] 10/06/2023 8:30 AM EST Office Visit Cardiology, [facility] [address] [facility] [place] [address] Stephen Hew[facility], DO [address] [facility] [address] 10/14/2023 2:30 PM EST Office Visit Hematology/Oncology [facility] [address] [facility] [address] Nereyda Metz CRNP [address] [place] [address] 11/04/2023 11:00 AM EDT Office Visit Otolaryngology [facility] [address] [facility] [place] [address] Cheri Castillo PA-C [address] [facility] [place] [address] 11/20/2023 3:00 PM EDT Office Visit Gynecology/Oncology, [place] [address] [place] [address] Vanessa Elena PA-C [address] [place] [address] 12/08/2023 2:20 PM EDT Office Visit Family Practice [address] [facility] [address] [place] [address] Florentin Calvo, [address] [place] [address] 01/21/2024 2:40 PM EDT Office Visit Otolaryngology [facility] [address] [facility] [place] [address] Cheri Castillo PA-C [address] [facility] [address] 02/17/2024 3:30 PM EDT Office Visit Nephrology, [facility] [address] [place] [address] ZemaitisMichelle PA-C [address] [place] [address] 06/03/2024 2:15 PM EDT Office Visit Ophthalmology, [facility] [address] [facility] [address] Wilbur Benavides, DO [address] [place] [address] 08/09/2024 1:00 PM EST Nurse Only Ancillary [address] [facility] [address] [place] [address] College, Nurse Annual Wellness Visit [address], [place] [address] Health Maintenance Due Date Last Done Comments Hepatitis B (1 of 3 - Risk 3-dose series) 2000 HbA1c 02/14/2024 2023, 01/25, 08/27/2022, Additional history exists Albumin/Creatinine Ratio 02/22/2024 023, 05/01/2022, 10/26/2021, Additional history exists GFR 03/15/2024 09/15/2023, 08/25, 08/21/2023, Additional history exists Diabetic Eye Exam 05/22/2024 05/22/2023, , 05/22/2023, Additional history exists CKD PHOS USE SMARTSET 94571 08/19/202407/26, 05/01/2022, 04/03/2022, Additional history exists CKD HGB USE SMARTSET 78221 09/15/202409/15, 09/15/2023, 09/08/2023, Additional history exists Depression [...] this encounter Medical Devices Implanted Type Area Leather Goods Sales Representative Device Identifier Shelf Expiration Date Model / Serial / Lot Cath Thermodilution 6fr - [id number] Implanted:Qty: 1 on 01/24/2023 by Wilbur Rivera MD at [facility] [employer] [id number] 10/15/2024 [id number] / / [id number] [employer]irt[employer] G4 - [id number] Implanted:Qty: 1 on 03/10/2023 at [facility] [employer] 11/19/2023 [id number] / / [id number] Device Watchman Flx 31mm - [id number] Implanted:Qty: 1 on 07/31/2023 by Wilbur Rivera MD at [facility] [employer] : INTRV CARD [id number] 12/02/2025 [id number] / [id number] documented as of this encounter Advance Directives Documents on File Type Date Recorded Patient Newspaper Subscription Solicitor Expl anation Advance Directives and Living Will 11/29/2022 ADVANCE DIRECTIVE / LIVING WILL Power of Pre Coder 11/29/2022 POWER OF A TTORNEY Advance Directives and Living Will 10/24/2014 ADVANCE DIRECTIVE / LIVING WILL Power of Pre Coder 10/24/2014 POWER OF A TTORNEY Latest Code [...] the patient have Health Care Power of Pre Coder? No Code Status History Code Status Date [...] Agents on File Name Relationship Healthcare Agent [facility] Communication [place] Adult Child Health Care Agen t (per Health Care Power of Pre Coder document) Care Teams Wood Drill Operator Relationship Specialty Start Date End Date Florentin Calvo DO [address] [place] [address] PCP - General Internal Medicine 03/24/13 documented as of this encounter
--- OUTSIDE RECORDS SUMMARY | 2023-10-10 09:37 | External Medical Summary | Summary of Care ---
Author Name Unknown Organization [facility] Address [address] [place] [address] Phone [phone] Care Team Providers Care Quality Control Analyst Name Role Phone Florentin Calvo DO Primary Care Provider [phone] Reason for Referral * Evaluate & Treat - Unlimited Visits (Within 3 days (urgent)) - Authorized Specialty Diagnoses / Procedures Referred By Danny mcdowell Referred To Contact Occupational Medicine / Occupational Therapy Diagnoses Acute posthemorrhagic anemia Iron deficiency anemia due to chronic blood loss Paroxysmal atrial fibrillation (HCC) Presence of Watchman left atrial appendage closure device Chronic diastolic CHF (congestive heart failure) (HCC) Sick sinus syndrome (HCC) Cardiac pacemaker in situ Generalized weakness Allyssa Mitchell PA-C [address] [place] [id number] Referral ID Status Reason Start Date Expiration Date Visits Requested Visits Authorized [id number] Authorized Specialty Services Required 09/11/2023 999 999 Question Answer Referral Priority Within 3 days (urgent) Where should this appointment be scheduled? External Comments All correspondence to PCP * Evaluate & Treat - Unlimited Visits (Within 3 days (urgent)) - Authorized Specialty Diagnoses / Procedures Referred By Danny mcdowell Referred To Contact Physical Therapy / Physical Medicine And Rehab Diagnoses Acute posthemorrhagic anemia Iron deficiency anemia due to chronic blood loss Paroxysmal atrial fibrillation (HCC) Presence of Watchman left atrial appendage closure device Chronic diastolic CHF (congestive heart failure) (HCC) Sick sinus syndrome (HCC) Cardiac pacemaker in situ Generalized weakness Allyssa Mitchell PA-C [address] [place] [address] Referral ID Status Reason Start Date Expiration Date Visits Requested Visits Authorized [id number] Authorized Specialty Services Required 09/11/[phone] Question Answer Referral Priority Within 3 days (urgent) Where should this appointment be scheduled? External Comments All correspondence to PCP Reason for Visit * Reason Onset Date Comments Senior Care Visit - Discharge 09/11/2023 Encounter Details Date Type Department Care Team (Late st Contact Info) Description 09/11/2023 9:30 AM EST Senior Care Visit [address] [place] [address] Allyssa Mitchell PA-C [address] [place] [address] [place] [address] Acute posthemorrhagic anemia*; Iron deficiency anemia due to chronic blood loss; Paroxysmal atrial fibrillation (HCC); Presence of Watchman left atrial appendage closure device; Chronic diastolic CHF (congestive heart failure) (HCC); Sick sinus syndrome (HCC); Cardiac pacemaker in situ; Acquired hypothyroidism; Generalized weakness; Current moderate episode of major depressive disorder without prior episode (HCC); Type 2 diabetes mellitus with hemoglobin A1c goal of less than 7.0% (HCC); Type 2 diabetes mellitus with stage 3b chronic kidney disease, without long-term current use of insulin (HCC); Type 2 diabetes mellitus with polyneuropathy ([facility]); Moderate persistent asthma without complication Allergies Active Allergy Reactions Criticality Noted Date [...] as of this encounter (statuses as of 09/11/2023) Medications Medication Sig Dispensed Refills Start Date End Date Status [facility] w/Device KitIndications:Typ e 2 diabetes mellitus with [...] for Wheezing. 15 g 12 06/13/2022 Active Mireya Dia In Vitro Strip (Glucose [...] (Lipitor)Indicatio ns:PVD (peripheral vascular disease) ([facility]),Type 2 diabetes mellitus with stage 3a chronic kidney disease and hypertension ([facility]) TAKE ONE TABLET BY MOUTH EVERY DAY DIRECTED 100 Tablet 3 03/31/2023 Active Ipratropium [place] 0.03 % Nasal Solution (Atrovent)Indicati ons:Chronic rhinitis [...] bedtime. 90 Tablet 3 05/16/2023 Active Tiotropium [place]-Olodaterol 2.5-2.5 MCG/ACT Inhalation Aerosol Solution (Stiolto Respimat) Inhale 2 Puffs by mouth in the morning. 12 g 3 05/23/2023 Active Levothyroxine Sodium 125 MCG Oral Tablet (Levoxyl) TAKE ONE TABLET BY MOUTH FIRST THING IN THE MORNING 100 Tablet 3 07/22/2023 Active Clopidogrel Bisulfate 75 MG Oral Tablet [...] mouth in the morning. 0 09/10/2023 Active Doxycycline Hyclate 100 MG Oral Tablet Take 1 Tablet by mouth in the morning and 1 Tablet before bedtime. 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 & Plan: Now [...] as of this encounter (statuses as of 09/11/2023) Resolved Problems Problem Noted Date Diagnosed Date [...] as of this encounter (statuses as of 09/11/2023) Immunizations Name Administration Dates Next Due COVID-19 mRNA, LNP-s, No Pre serve, 2-Dose Series (Moderna) 06/23/2021,10/25/2020,09/28/2020 COVID-19, LNP-s, No Preserve , Larry-sucrose, Ages 12+ (Pfizer) 04/09/2022 COVID-19, MRNA-LNP, 23-24, P F, 30 MCG/0.3 mL, 12 YRS AND ABOVE, IM (SyMynd-Comirnat) 06/09/2023 Covid-19, Mrna, Lnp-s, Pf, B ivalent, [...] Sign Reading Time Taken Comments Blood Pressure 126/54 09/11/2023 11:26 AM EST Pulse 68 09/11/2023 11:26 AM EST Temperature 36.3 C (97.4 F) 09/11/2023 11:[address] Respiratory Rate 17 09/11/2023 11:26 AM EST Oxygen Saturation 96% 09/11/2023 11:26 AM EST room air Inhaled Oxygen Concentration - - Weight 72.3 kg (159 lb 6.4 oz) 09/11/2023 11:26 AM EST Height - - Body Mass Index 26.53 08/21/2023 2:01 PM EST documented in this encounter Functional Status Functional Status Response Date of Assess ment Are you deaf or do you have serious difficulty hearing? No-MOHEGAN can hear w/ hearing aid 03/07/2023 Are [...] as of this encounter Progress Notes * Allyssa Mitchell PA-C - 09/11/2023 11:07 AM EST DISCHARGE NOTE TRANSITION EVENT: Type: Discharge to home Date: September 11 Code Status: Full Code Name: Inga Barakat Date of : 1940 This note pertains to care provided at [facility]. Please see facility medical record for original note. This note is not to be edited or addended in [facility]. Editing or addending needs to occur in the facilities medical record. Discharge Medications: Current Outpatient Medications Medication Sig Dispense Refill [employer] w/Device Kit Use up to 1 [...] MOUTH EVERY DAY DIRECTED 100Tablet 3 Ipratropium [place] 0.03 % Nasal Solution (Atrovent) Administer 2 [...] mouth at bedtime. 90 Tablet 3 Tiotropium [place]-Olodaterol 2.5-2.5 MCG/ACT Inhalation Aerosol Solution (Stiolto Respimat) [...] No current facility-administered medications for this visit. S: Inga Barakat is being discharged from [facility] to home. Admitted to [facility] on 09/04/2023 for short-term rehab following hospitalization, which issummarized below. Per admitting note dated 09/09/23: "Inga Barakat had been admitted to [facility] from [facility] for PT and OT. Recently admitted [facility] on 08/22/23 because of weakness, stroke-like symptoms, and marked symptomatic anemia and was transferred here and admitted on 09/04/2023. Patient of Dr. Calvo with complicated PMH of hypertension and type 2 diabetes mellitus with stage 3b CKD, PAF not on anticoagulation due to GI bleeding and s/p Watchman procedure 07/31/23, angiodysplasia of colon, RADHA, lumbar spinal stenosis, hypothyroidism, major depressive disorder, dyslipidemia, left carotid artery aneurysm, s/p cardiac pacemaker, h/o TIA, and GERD who presented to the ED with generalized weakness. Patient had undergone Watchman procedure at [facility] for atrial fibrillation on 07/31/23 to avoid anticoagulation due torecurrent severe anemia/GI bleeding. She is to take dual antiplatelet therapy with aspirin and Plavix for 45 days following this procedure and have BRENDAN done 09/15/23. [facility] similar symptoms on 08/14/23, all of which was negative. CXR on 08/22/23 showed cardiomegaly with pulmonary vascular congestion. CT of the chest showed cardiomegaly with mild pulmonary edema, emphysema, mild mediastinal lymphadenopathy, likely reactive, and trace pericardial effusion. Head CT was negative for acute findings. CTA of the head and neck showed no acute changes, multifocal stenoses of the posterior cerebral arteries, high- grade on the right, and severe chronic paranasal sinus disease. When she presented to ED 08/22/23, she had slurred speech and slight facial droop and headache. Shewas seen by tele-neurologist from [place]. Her hemoglobin was 6.5 and it was felt her symptoms weredue to severe anemia. She was transfused 2 units PRBCs with resolution of her stroke-like symptoms.Patient did have MRI of the brain 08/15/23 (previous admission) that was negative for acute changesand this was not repeated. She was treated for sinusitis with doxycycline. She was seen by hematology for severe anemia, which was felt to be due to iron deficiency and chronic diease with unclear etiology of iron loss. She was given 5 days of IV Venofer after transfusion. She was also continued on oral iron, vitamin B12, and folic acid. She was seen by GI who recommendedconservative management and schedule EGD and colonoscopy as outpatient. Her hemoglobin on 09/03/23 was stable at 9.7. She was seen by cardiology. Her Sotalol was reduced to 40 mg daily due to CKD. No other medication changes were made. She was also seen by nephrology for TIFFANY on CKD. She was seen by PT, who recommended rehab stay. She is now admitted for PT/OT with plans to return home with her , who has dementia and she helps to care for. Has a son close by that is helpful. Patient reports she is feeling better. Appetite is fair. Is scheduled to see hematology 09/18/23. Her EGD and colonoscopy were scheduled for 09/19/23 but havebeen canceled. She is scheduled for BRENDAN on 09/15/23. " Her admission to this facility has been brief and uncomplicated. She is up and walking with a walker. Has tolerated reduced dose of sotalol without hypertensive issues nor tachyarrhythmias. She is up and walking up to 500 feet with a walker and is independent with ADLs. 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 Pleural effusion Pulmonary arterial hypertension ([facility]) Pure hypercholesterolemia 07/02/2021 PVD (peripheral vascular disease) ([facility]) 05/15/2022 Retinopathy Secondary hyperparathyroidism, renal ([facility]) 12/17/2018 Severe mitral valve regurgitation 10/30/2022 Severe tricuspid regurgitation 11/18/2022 Spinal stenosis 07/2002 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 claudication 03/24/2013 Vertigo 03/24/2013 Patient Active Problem List Diagnosis Code Type 2 diabetes mellitus with hemoglobin A1c goal of less than 7.0% ([facility]) E11.9 Vertigo R42 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 claudication M48.061 Hypothyroidism E03.9 Displacement of cervical intervertebral disc without myelopathy M50.20 Meniere's disease H81.09 Paroxysmal atrial fibrillation ([facility]) I48.0 Obstructive sleep apnea of adult G47.33 Tremor R25.1 Iron deficiency anemia D50.9 Angiodysplasia of colon with hemorrhage K55.21 Acquired renal cyst N28.1 Controlled substance agreement signed Z79.899 Type 2 diabetes mellitus with polyneuropathy ([facility]) E11.42 Secondary hyperparathyroidism, renal ([facility]) N25.81 Pulmonary hypertension ([facility]) I27.20 Current moderate episode of major depressive disorder without prior episode ([facility]) F32.1 Moderate persistent asthma without complication [...] TIA (transient ischemic attack) Z86.73 Atherosclerosis of iroquois coronary artery without angina pectoris I25.10 S/P mitral valve clip implantation Z98.890, Z95.818 Presence of Watchman left atrial appendage closure device Z95.818 Hypertensive chronic kidney disease with stage 1 through stage 4 chronic kidney disease, or unspecified chronic kidney disease I12.9 Past Surgical History: Procedure Laterality Date COLONOSCOPY, [...] HEALTH SYSTEM COLONOSCOPY, DIAGNOSTIC (RECTUM) 03/11/2022 [facility] CORONARY ANGIOGRAPHY W/RIGHT+LEFT CATH Right 01/24/2023 CORONARY ANGIOGRAPHY W/RIGHT+LEFT CATH performed by Wilbur Rivera MD at [facility] CYSTOSCOPY 06/2012 EGD, FLEXIBLE, DIAGNOSTIC 10/12/2014 normal bx, /[facility] EGD, FLEXIBLE, DIAGNOSTIC 01/05/2016 ESOPHAGOGASTRODUODENOSCOPY (EGD), [...] performed by Florentin Perez MD at OR [facility] LAPAROSCOPY; CHOLECYSTECTOMY N/A 06/06/2020 LIGATE/CUT OVIDUCT(S) MAMMOGRAM BREAST NEEDLE BIOPSY CORE LEFT Left 09/19/2015 benign NECK SPINE FUSION (CERV, BELOW C2) 1993 1999,2011 PATIENT EDU, LUMBAR LAMINECTOMY 2001 1996 too PERC CLOSURE TRANSCATH LEFT ATRIAL APPENDAGE W/ENDOCARDIAL IMPLANT Bilateral 07/31/2023 PERCUTANEOUS CLOSURE LEFT ATRIAL APPENDAGE IMPLANT performed by Wilbur Rivera MD at [facility] [place] TONSILLECTOMY PRIMARY/SECONDARY LESS THAN AGE 12 Bilateral REPAIR RUPTURED ROTATOR CUFF, ACUTE Left 08/08/2015 SINUS SURGERY PROCEDURE NEC 1994 TRANSCATH REPAIR MITRAL VALVE, INITIAL Bilateral 03/06/2023 TRANSCATHETER MITRAL VALVE REPAIR performed by Wilbur Rivera MD at [facility] Family History Problem Relation Age of Onset Neurological Disorder Mother parkinson Eye Problems Mother glaucoma Diabetes Father 30 1967 Cancer Brother brain, lung Eye Problems None denies fm: Blindness, AMD, RD Stomach cancer Grandmother (Maternal) Family Status Relation Status Mo Alive Fa Alive emphysema Son Alive Unknown (Not Specified) Social History Socioeconomic History Marital status: Spouse [...] on file Food Insecurity: No Food Insecurity (08/21/2023) Hunger Vital Sign Worried About Running Out [...] [facility] Nickel Swelling Other reaction(s): Unknown Adequate nutrition/fluids: Yes Bowel/Bladder dysfunction: No Assistive Devices: with walker ADL: independent O: BP 126/54 | Pulse 68 | Temp 36.3 C (97.4 F) | Resp 17 | Wt 72.3 kg (159 lb 6.4 oz) | SpO2 96% Comment: room air | BMI 26.53 kg/m | BSA 1.82 m General: alert, healthy, and no distress Head: Normocephalic Eye Exam: PERRLA, conjunctiva are pink and non-injected, sclera clear Oropharynx: lips, buccal mucosa, and tongue normal and mucous membranes are moist Heart: regular rate & rhythm Lungs: chest symmetric with normal AP diameter, no chest deformities noted, no chest wall tenderness, lungs clear to auscultation Abdomen: abdomen soft, non-tender, normal bowel sounds, no masses or organomegaly, and no rebound or guarding Extremities: less than 2 second capillary refill, no joint deformities, effusion, or inflammation, no edema Neuro Exam: alert & oriented x 3 with fluent speech Skin: pink, warm, dry Results for orders placed or performed in visit on 09/08/23 BASIC METABOLIC PANEL Result Value Ref Range BUN 45 (H) 6 - 20 mg/dL Creatinine 1.9 (H) 0.5 - 1.0 mg/dL Estimated Glomerular Filtration Rate 25 (L) >=60 mL/min Sodium 138 135 - 146 mmol/L Potassium 4.5 3.5 - 5.1 mmol/L Chloride 106 98 - 107 mmol/L CO2 22 22 - 32 mmol/L Anion Gap 10 7 - 15 mmol/L Glucose 104 70 - 120 mg/dL Calcium 8.9 8.4 - 10.2 mg/dL CBC Result Value Ref Range WBC 7.53 4.00 - 10.80 K/uL RBC 3.09 3.85 - 5.15 M/uL HGB 9.5 (L) 12.0 - 15.3 g/dL HCT 29.3 (L) 36.0 - 45.2 % MCV 94.8 81.5 - 97.5 fL MCH 30.7 27.0 - 34.0 pg MCHC 32.4 32.0 - 36.0 g/dL RDW 15.7 11.5 - 15.5 % PLT 189 140 - 400 K/uL MPV 10.6 6.6 - 11.1 fL *Note: Due to a large number of results and/or encounters for the requested time period, some results have not been displayed. A complete set of results can be found in Results Review. A: Acute posthemorrhagic anemia (Primary) Iron deficiency anemia due to chronic blood loss Hgb low but stable Follow up with nephrology needs to be scheduled Follow up with hematology as planned Endoscopy needs to be rescheduled Paroxysmal atrial fibrillation (HCC) Presence of Watchman left atrial appendage closure device She continues on aspirin 81 mg daily + plavix 75 mg daily - defer changes to cardiology Cardiology appt scheduled 09/15/23 BP stable on sotalol 40 mg daily Chronic diastolic CHF (congestive heart failure) (HCC) Stable at this time on torsemide 10 mg daily Sick sinus syndrome ([facility]) Cardiac pacemaker in situ Sotalol 40 mg once daily Acquired hypothyroidism Home synthroid continued without issue Generalized weakness Home based PT and OT will continue after discharge Current moderate episode of major depressive disorder without prior episode ([facility]) Stable on home sertraline 150 mg daily Type 2 diabetes mellitus with hemoglobin A1c goal of less than 7.0% ([facility]) Type 2 diabetes mellitus with stage 3b chronic kidney disease, without long-term current use of insulin ([facility]) Diet controlled Follow up with nephrology regarding renal disease Type 2 diabetes mellitus with polyneuropathy ([facility]) Using biofreeze for BLE pain Moderate persistent asthma without complication Stable on home Singulair 10 mg daily, stiolto 2 puffs daily P: 1. Discharge to home 2. Home-based PT and OT will continue after discharge 3. Copy of chart sent to PCP 4. Patient to follow up with PCP within 7 days. 5. [employer] Sales Representative: Marita Vargas at [facility] 6. I spent 46 minutes on discharge. Electronically signed by: Allyssa Mitchell PA-C documented in this encounter Plan of Treatment Upcoming Encounters Date Type Department Care Team (Late st Contact Info) Description 09/15/2023 8:00 AM EST Appointment Cardiac Studies [facility] [address] [address] 09/15/2023 3:20 PM EST Pharmacy Family Practice [address] [place] [address] [address] [place] [address] College, Pharmacist [address] [place] [address], [place] [address] 09/15/2023 3:40 PM EST Office Visit Family Practice [address] [place] [address] [address] [facility] [address] Florentin Calvo DO 293 [place] [address] 09/18/2023 9:30 AM EST Office Visit Hematology/Oncology [facility] [address] [facility] [place], [place] [address] Nereyda Metz CRNP 400 [place] [address] 10/06/2023 8:30 AM EST Office Visit Cardiology, [facility] [address] Stephen Hewitt, [facility] [place] [address] 10/14/2023 2:30 PM EST Office Visit Hematology/Oncology [facility] 200 [facility] [place], [place] [address] Nereyda Metz CRNP 400 [place] [address] 10/24/2023 2:30 PM EST Office Visit Gynecology/Oncology, [place] [address] [place] [address] Vanessa Elena PA-C [address] [place] [address] 11/04/2023 11:00 AM EDT Office Visit Otolaryngology [facility] 132 [facility] [place] [address] Cheri Castillo PA-C [facility] [place] [address] 12/08/2023 2:20 PM EDT Office Visit Family Practice [address] [facility] [place] 293 [place] [address] Florentin Calvo, 293 [place] [address] 01/21/2024 2:40 PM EDT Office Visit Otolaryngology [facility] 132 [facility] [place] [address] Cheri Castillo PA-C 132 [facility] [place] [address] 02/17/2024 3:30 PM EDT Office Visit Nephrology, [facility] 200 [facility] [place] [address] Zemaitis, Michelle Amezquita PA-C 200 [facility] [place] [address] 06/03/2024 2:15 PM EDT Office Visit Ophthalmology, [facility] 132 [facility] [place] [address] Wilbur Benavides, [facility] [address] 08/09/2024 1:00 PM EST Nurse Only Ancillary 65 [facility] 293 [place] [address] College, Nurse Annual Wellness Visit [address] [place] [address] Scheduled Referrals Name Type Priority Associated Diagnoses Orde r Schedule PHYSICAL THERAPY REFERRAL OP Referral Within 3 days (urgent) Acute posthemorrhagic anemia Iron deficiency anemia due to chronic blood loss Paroxysmal atrial fibrillation (HCC) Presence of Watchman left atrial appendage closure device Chronic diastolic CHF (congestive heart failure) (HCC) Sick sinus syndrome (HCC) Cardiac pacemaker in situ Generalized weakness Ordered: 09/11/2023 OCCUPATIONAL THERAPY REFERRAL OP Referral Within 3 days (urgent) Acute posthemorrhagic anemia Iron deficiency anemia due to chronic blood loss Paroxysmal atrial fibrillation (HCC) Presence of Watchman left atrial appendage closure device Chronic diastolic CHF (congestive heart failure) (HCC) Sick sinus syndrome (HCC) Cardiac pacemaker in situ Generalized weakness Ordered: 09/11/2023 Health Maintenance Due Date Last Done Comments [...] Additional history exists CKD PHOS USE SMARTSET 79638 08/19/202407/26, 05/01/2022, 04/03/2022, Additional history exists Depression Screening 08/21/2024 08/21/2023 CKD HGB USE SMARTSET 82913 09/08/202409/08, 08/20/2023, 08/20/2023, Additional history exists DXA Scan 05/07/2025 05/07/2021, [...] this encounter Medical Devices Implanted Type Area Reconciliation Specialist Device Identifier Shelf Expiration Date Model / Serial / Lot Cath Thermodilution 6fr - [id number] Implanted:Qty: 1 on 01/24/2023 by Wilbur Rivera MD at [facility] [employer] [id number] 10/15/2024 [id number] / / [id number] Mirtaclip G4 - [id number] Implanted:Qty: 1 on 03/10/2023 at [facility] [employer] 11/19/2023 [id number] / / [id number] Device Watchman Flx 31mm - [id number] Implanted:Qty: 1 on 07/31/2023 by Wilbur Rivera MD at [facility] [employer] : INTRV CARD [id number] 12/02/2025 [id number] documented as of this encounter Visit Diagnoses Diagnosis Acute posthemorrhagic anemia- Primary Iron deficiency anemia due to chronic blood loss Iron deficiency anemia secondary to blood loss (chronic) Paroxysmal atrial fibrillation (HCC) Atrial fibrillation Presence of Watchman left atrial appendage closure device Chronic diastolic CHF (congestive heart failure) (HCC) Chronic diastolic heart failure Sick sinus syndrome (HCC) Sinoatrial node dysfunction Cardiac pacemaker in situ Acquired hypothyroidism Unspecified hypothyroidism Generalized weakness Other malaise and fatigue Current moderate episode of major depressive disorder without prior episode (HCC) Type 2 diabetes mellitus with hemoglobin A1c goal of less than 7.0% (HCC) Type 2 diabetes mellitus with stage 3b chronic kidney disease, without long-term current use of insulin (HCC) Type 2 diabetes mellitus with polyneuropathy (HCC) Type II or unspecified type diabetes mellitus with neurological manifestations, not stated as uncontrolled Moderate persistent asthma without complication Unspecified asthma documented in this encounter Advance Directives Documents on File Type Date Recorded Patient 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 No Code Status History Code Status [...] on File Name Relationship [facility] Health Care Agen t (per Health Care Power of Perch Machine Inspector document) Care Teams Quality Control Analyst Relationship Specialty Start Date End Date Florentin Calvo DO [address] [place] [place] [address] PCP - General Internal Medicine 03/24/13 documented as of this encounter
--- OUTSIDE RECORDS SUMMARY | 2023-10-10 09:37 | External Medical Summary | Summary of Care ---
Author Name Unknown Organization [facility] Address [address] [place] [address] Phone [phone] Care Team Providers Care Social Science Instructor Name Role Phone Florentin Calvo DO Primary Care Provider [phone] Reason for Visit * Reason Onset Date Comments [facility]: Maintenance 09/12/2023 Encounter Details Date Type Department Care Team (Late st Contact Info) Description 09/12/2023 Telephone [facility], [facility] [address] [facility] [place] [address] [facility], Nurse [facility] [address] [place] [address] [facility]: Maintenance Allergies Active Allergy [...] as of this encounter (statuses as of 09/12/2023) Medications Medication Sig Dispensed Refills Start Date End Date Status LagouTouch Verio w/Device KitIndications:Type 2 diabetes mellitus with hemoglobin A1c goal of less than 7.0% ([facility]) Use up to 1 times [...] Tablet (Lipitor)Indication s:PVD (peripheral vascular disease) ([facility]),Type 2 diabetes mellitus with stage 3a chronic kidney disease and hypertension ([facility]) TAKE ONE TABLET BY MOUTH EVERY DAY DIRECTED 100 Tablet 3 03/31/2023 Active Ipratropium Yreka 0.03 % Nasal Solution (Atrovent)Indicatio ns:Chronic rhinitis [...] bedtime. 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 No-KARLUK can hear w/ hearing aid 03/07/2023 Are [...] 09/12/22 RRS score 15 TT was sent [facility] scheduling role documented in this encounter Plan of Treatment Upcoming Encounters Date Type Department Care Team (Late st Contact Info) Description 09/15/2023 8:00 AM EST Appointment Cardiac Studies [address] [address] 09/15/2023 3:20 PM EST Pharmacy Family Practice [address] [facility] [address] [facility] [place] [address] College, Pharmacist [address] [place] [address] 09/15/2023 3:40 PM EST Office Visit Family Practice [address] [facility] [address] [facility] [place] [address] Florentin Calvo, DO 293 [facility] [place] [address] 09/18/2023 9:30 AM EST Office Visit Hematology/Oncology [facility] [address] [place] [address] Nereyda Metz CRNP [address] [place] [address] 10/06/2023 8:30 AM EST Office Visit Cardiology, [facility] [address] [place] [address] Stephen Hewitt, 132 [place] [address] 10/14/2023 2:30 PM EST Office Visit Hematology/Oncology [facility] [address] [facility], [place] [address] Nereyda Metz CRNP [address] [place] [address] 10/24/2023 2:30 PM EST Office Visit Gynecology/Oncology, [place] [address] [place] [address] Vanessa Elena PA-C [address] [place] [address] 11/04/2023 11:00 AM EDT Office Visit Otolaryngology [facility] 132 [facility] [place] [address] Cheri Castillo PA-C 132 [facility] [place] [address] 12/08/2023 2:20 PM EDT Office Visit Family Practice 65 [facility] [address] [facility], [place] [address] Florentin Calvo, DO 293 [facility] [place] [address] 01/21/2024 2:40 PM EDT Office Visit Otolaryngology [facility] 132 [facility] [place] [address] Cheri Castillo PA-C 132 [facility] [place] [address] 02/17/2024 3:30 PM EDT Office Visit Nephrology, [facility] [address] [place] [address] ZemaitisMichelle PA-C 200 [facility] [place] [address] 06/03/2024 2:15 PM EDT Office Visit Ophthalmology, [facility] [address] [facility] [place] [address] Wilbur Benavides, DO [address] [place] [address] 08/09/2024 1:00 PM EST Nurse Only Ancillary 65 [facility] 293 [facility], [place] [address] College, Nurse Annual Wellness Visit [address], [place] [address] Health Maintenance Due Date Last Done Comments [...] Additional history exists CKD PHOS USE SMARTSET 07534 08/19/202407/26, 05/01/2022, 04/03/2022, Additional history exists Depression Screening 08/21/2024 08/21/2023 CKD HGB USE SMARTSET 25704 09/08/202409/08, 08/20/2023, 08/20/2023, Additional history exists DXA [...] this encounter Medical Devices Implanted Type Area Relay Man Device Identifier Shelf Expiration Date Model / Serial / Lot Cath Thermodilution 6fr - [id number] Implanted:Qty: 1 on 01/24/2023 by Wilbur Rivera [place] at [facility] [employer] [employer] [id number] 10/15/2024 [id number] / / [id number] Mirtaclip G4 - [id number] Implanted:Qty: 1 on 03/10/2023 at [facility] [place] 11/19/2023 [id number] / / [id number] Device Watchman Flx 31mm - [id number] Implanted:Qty: 1 on 07/31/2023 by Wilbur Rivera [place] [facility] [place] [employer] : INTRV CARD [id number] 12/02/2025 [id number] / / [id number] documented as of this encounter Advance Directives Documents on File Type Date Recorded Patient Sprayer Insecticide Expl anation Advance Directives and Living Will 11/29/2022 ADVANCE DIRECTIVE / LIVING WILL Power of Animal Trainer 11/29/2022 POWER OF A TTORNEY Advance Directives and Living Will 10/24/2014 ADVANCE DIRECTIVE / LIVING WILL Power of Animal Trainer 10/24/2014 POWER OF A TTORNEY Latest Code [...] the patient have Health Care Power of Animal Trainer? No Code Status History Code Status Date [...] Agents on File Name Relationship Healthcare Agent [facility] p Communication [facility] Adult Child Health Care Agen t (per Health Care Power of Animal Trainer document) Care Teams Social Science Instructor Relationship Specialty Start Date End Date Florentin Calvo DO [address] [place] [address] PCP - General Internal Medicine 03/24/13 documented as of this encounter
--- OUTSIDE RECORDS SUMMARY | 2023-10-10 09:37 | External Medical Summary | Summary of Care ---
Author Name Unknown Organization [facility] Address [address] [place] [address] Phone [phone] Care Team Providers Care Shellac Polisher Name Role Phone Florentin Calvo DO Primary Care Provider [phone] Reason for Visit * Reason Onset Date Comments Senior Care Visit - Admission 09/10/2023 Encounter Details Date Type Department Care Team (Latest Contact Info) Description 09/09/2023 11:20 AM EST [place] [facility] [address] [place] [address] Vangie Silveira MD [address] [place] [address] [place] [address] Iron deficiency anemia, unspecified iron deficiency anemia type*; Paroxysmal atrial fibrillation (HCC); Presence of Watchman left atrial appendage closure device; Angiodysplasia of colon with hemorrhage; Type 2 diabetes mellitus with hemoglobin A1c goal of less than 7.0% (HCC); PVD (peripheral vascular disease) (HCC); Chronic diastolic CHF (congestive heart failure) (HCC); Type 2 diabetes mellitus with stage 3b chronic kidney disease, without long-term current use of insulin (HCC); Acquired hypothyroidism; Cardiac pacemaker in situ; Current moderate episode of major depressive disorder without prior episode (HCC); Pure hypercholesterolemia Allergies Active Allergy Reactions Criticality Noted Date Comments Azithromycin Other (Please comment) 12/04/2021 QTC prolongation at [facility] Celecoxib Hives,Rash High 03/24/2013 Other [...] Date End Date Status Mireya Dia w/Device KitIndications:Typ e 2 diabetes mellitus with [...] DIRECTED 100 Tablet 3 03/31/2023 Active Ipratropium [place] 0.03 % Nasal Solution (Atrovent)Indicati ons:Chronic rhinitis [...] bedtime. 90 Tablet 3 05/16/2023 Active Tiotropium [place]-Olodaterol 2.5-2.5 MCG/ACT Inhalation Aerosol Solution (Stiolto Respimat) [...] mouth in the morning. 0 09/10/2023 Active Sotalol HCl 80 MG Oral Tablet (Betapace)Indicati ons:Paroxysmal atrial fibrillation (HCC) Take 0.5 Tablets by mouth in the morning and 0.5 Tablets before bedtime. 300 Tablet 3 04/10/2023 4 Discontinue d(Refill) documented as of this encounter (statuses as of 09/11/2023) Active Problems Problem Noted Date Diagnosed Date Hypertensive chronic kidney disease with stage 1 through stage 4 chronic kidney disease, or unspecified chronic kidney disease 08/25/2023 Presence of Watchman left atrial appendage closu re device 07/31/2023 S/P mitral valve clip implantation 03/06/2023 Atherosclerosis of osage 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 02/13/2023 Last Assessment & Plan: Continue statin, sotalol. ASA History of TIA (transient ischemic attack) 11/29 Last Assessment & Plan: -Recent admission to [facility], presented with numbness of tongue [...] Obstructive sleep apnea of adult 09/09/2014 Overview: REGULATORY COORDINATOR Last Assessment & Plan: Now just [...] MCG/0.3 mL, 12 YRS AND ABOVE, IM ([facility]) 06/09/2023 Covid-19, Mrna, Lnp-s, Pf, B ivalent, [...] as of this encounter Progress Notes * Vangie Silveira MD - 09/10/2023 1:27 PM EST ADMISSION HISTORY and PHYSICAL TRANSITION EVENT: Type: SNF admission Date: September 04 Code Status: Full Code Name: Inga Barakat Date of : 1940 This note pertains to care provided at [facility]. Please see facility medical record for original note. This note is not to be edited or addended in [employer]. Editing or addending needs to occur in the facilities medical record. S: Inga Barakat had been admitted to [facility] from [facility] for PT and OT. Recently admitted to [facility] on 08/22/23 because of weakness, stroke-like symptoms, and marked symptomatic anemia and wastransferred here and admitted on 09/04/2023. Patient of [...] weakness. Patient had undergone Watchman procedure at [facility] for atrial fibrillation on 07/31/23 to avoid anticoagulation due to recurrent severe anemia/GI bleeding. She is to take dual antiplatelet therapy with aspirin and Plavix for 45 days following this procedure and have BRENDAN done 09/15/23. Patient had been admitted to [facility] for stroke work up with similar symptoms on [...] and headache. Shewas seen by tele-neurologist from [place]. Her hemoglobin was 6.5 and it was [...] She is scheduled for BRENDAN on 09/15/23. 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.20 Meniere's disease H81.09 Paroxysmal atrial fibrillation ([facility]) I48.0 Obstructive sleep apnea of adult G47.33 Tremor R25.1 Iron deficiency anemia D50.9 Angiodysplasia of colon with hemorrhage K55.21 Acquired renal cyst N28.1 Controlled substance agreement signed Z79.899 Type 2 diabetes mellitus with polyneuropathy ([facility]) E11.42 Secondary hyperparathyroidism, renal ([facility]) N25.81 Pulmonary hypertension ([facility]) I27.20 Current moderate episode of major depressive disorder without prior episode ([facility]) F32.1 Moderate persistent asthma without complication J45.40 Gastro-esophageal reflux disease without esophagitis K21.9 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 ([facility]) E11.319 Pure hypercholesterolemia E78.00 Aneurysm of left carotid artery ([facility]) I72.0 Aortic atherosclerosis ([facility]) I70.0 Chronic kidney disease, stage 3b ([facility]) N18.32 PVD (peripheral vascular disease) ([facility]) I73.9 Chronic diastolic CHF (congestive heart failure) ([facility]) I50.32 Type 2 diabetes mellitus with stage 3b chronic kidney disease, without long-term current use of insulin ([facility]) E11.22, N18.32 Cardiac pacemaker in situ Z95.0 History of endometrial cancer Z85.42 Normocytic anemia D64.9 Primary osteoarthritis of right knee M17.11 Severe tricuspid regurgitation I07.1 History of TIA (transient ischemic attack) Z86.73 Atherosclerosis of osage coronary artery without angina pectoris I25.10 S/P mitral valve clip implantation Z98.890, Z95.818 Presence of Watchman left atrial appendage closure device Z95.818 Hypertensive chronic kidney disease with stage 1 through stage 4 chronic kidney disease, or unspecified chronic kidney disease I12.9 Current Outpatient Medications Medication Sig Dispense Refill CorvisaCloud w/Device Kit Use up to 1 times [...] as needed for Wheezing. 15 g 12 FitbitToGateRocket Verio In Vitro Strip (Glucose Blood) Test [...] MOUTH EVERY DAY DIRECTED 100Tablet 3 Ipratropium [place] 0.03 % Nasal Solution (Atrovent) Administer 2 Sprays into nostril in the morning and 2 Sprays before bedtime. 90 mL 3 Sotalol HCl 80 MG Oral Tablet (Betapace) Take 0.5 Tablets by mouth in the morning and 0.5 Tablets before bedtime. (Patient taking differently: Take 0.5 Tablets by mouth in the morning.) 300 Tablet 3 Pantoprazole Sodium 40 MG Oral Tablet Delayed Release (Protonix) Take 1 Tablet by mouth in the morning and 1 Tablet by mouth in the evening. 200 Tablet 1 Allopurinol 300 MG Oral Tablet (Zyloprim) Take 1 Tablet by mouth at bedtime. 90 Tablet 3 Tiotropium [place]-Olodaterol 2.5-2.5 MCG/ACT Inhalation Aerosol Solution (Stiolto Respimat) [...] BY MOUTH AT BEDTIME 100 Tablet 3 No current facility-administered medications for this visit. Review of patient's allergies indicates: Allergen Reactions [...] Azithromycin Other (Please comment) QTC prolongation at [facility] Nickel Swelling Other reaction(s): Unknown Social History Tobacco Use Smoking status: Former Packs/day: 1.25 Years: 18.00 Additional pack years: 0.00 Total pack years: 22.50 Types: Cigarettes Quit date: 12/29/1978 Years since quittin.7 Passive exposure: Past Smokeless tobacco: Never Substance Use Topics Alcohol use: No Vaping/E-Cigarette Use Vaping/E-Cigarette Use Never User Vaping/E-Cigarette Substances Vaping/E-Cigarette Devices Past Surgical History: Procedure Laterality Date COLONOSCOPY, DIAGNOSTIC (RECTUM) 10/12/2014 inflammatory tissue on bx, diverticulosis/[facility] COLONOSCOPY, DIAGNOSTIC (RECTUM) 01/05/2016 diverticulosis, multiple non-bleeding colonic angioectasias COLONOSCOPY, DIAGNOSTIC (RECTUM) 04/15/2016 angiodysplastic lesion, diverticulosis/COLONOSCOPY FLEXIBLE PROXIMAL DIAGNOSTIC performed by Izzy Stone MD at ENDOSCOPY [facility] COLONOSCOPY, DIAGNOSTIC (RECTUM) 11/10/2020 Hemorrhoids, multi polyps, diverticulosis in sigmoid colon/ biopsy show adenomatous polyp/ COLONOSCOPY FLEXIBLE PROXIMAL DIAGNOSTIC performed by Maine Stone MD at ENDOSCOPY [facility] COLONOSCOPY, DIAGNOSTIC (RECTUM) 03/11/2022 poor prep / [facility] CORONARY ANGIOGRAPHY W/RIGHT+LEFT CATH Right 01/24/2023 CORONARY ANGIOGRAPHY W/RIGHT+LEFT CATH performed by Wilbur Rivera MD at [facility] CYSTOSCOPY 06/2012 EGD, FLEXIBLE, DIAGNOSTIC 10/12/2014 normal bx, /[facility] EGD, FLEXIBLE, DIAGNOSTIC 01/05/2016 ESOPHAGOGASTRODUODENOSCOPY (EGD), FLEXIBLE, TRANSORAL, DIAGNOSTIC performed by Maine Stone MD at ENDOSCOPY [facility] EGD, FLEXIBLE, DIAGNOSTIC 03/11/2022 Multiple small non-bleeding fundic gland polyps / [facility] EGD, FLEXIBLE, DIAGNOSTIC 12/09/2022 mild-mod inflammation / [facility] LAPAROSCOPY TOTAL HYSTX, UTERUS 250GM OR LESS TUBE/OVARY N/A 02/22/2020 ROBOTIC LAPAROSCOPIC HYSTERECTOMY REMOVAL TUBES AND OVARIES FOR UTERUS 250GM OR LESS performed by Florentin Perez MD at [facility] LAPAROSCOPY; CHOLECYSTECTOMY N/A 06/06/2020 LIGATE/CUT OVIDUCT(S) MAMMOGRAM BREAST NEEDLE BIOPSY CORE LEFT Left 09/19/2015 benign NECK SPINE FUSION (CERV, BELOW C2) 1993 1999,2011 PATIENT EDU, LUMBAR LAMINECTOMY 2001 1996 too PERC CLOSURE TRANSCATH LEFT ATRIAL APPENDAGE W/ENDOCARDIAL IMPLANT Bilateral 07/31/2023 PERCUTANEOUS CLOSURE LEFT ATRIAL APPENDAGE IMPLANT performed by Wilbur Rivera MD at [facility] CO TONSILLECTOMY PRIMARY/SECONDARY LESS THAN AGE 12 Bilateral REPAIR RUPTURED ROTATOR CUFF, ACUTE Left 08/08/2015 SINUS SURGERY PROCEDURE NEC 1994 TRANSCATH REPAIR MITRAL VALVE, INITIAL Bilateral 03/06/2023 TRANSCATHETER MITRAL VALVE REPAIR performed by Wilbur Rivera MD at [facility] Family History Problem Relation Age of Onset Neurological Disorder Mother parkinson Eye Problems Mother glaucoma Diabetes Father 30 1967 Cancer Brother brain, lung Eye Problems None denies fm: Blindness, AMD, RD Stomach cancer Grandmother (Maternal) Family Status Relation Status Mo Fa Bro NONE (Not Specified) MGMA (Not Specified) Results for orders placed or performed in [...] results can be found in Results Review. Review of Systems: Constitutional ROS: No change in weight, No fevers, sweats, or chills, and +generalized weakness Eye ROS: No recent significant change in vision and No eye pain, redness, discharge Ear ROS: No ear pain, No drainage, No tinnitus or + chronic vertigo, and No recent change in hearing Nose ROS: No history of frequent colds or sinusitis, No nasal stuffiness, No history of Hay Fever, and No significant epistaxis Mouth/Throat ROS: No bleeding gums, No thrush, or No sore throat Pulmonary ROS: No cough, sputum, or hemoptysis, No wheezing, No recent change in breathing, and +emphysema Cardiovascular ROS: No chest pain, No shortness of breath, No orthopnea, No paroxysmal nocturnal dyspnea, No edema, No palpitations, No syncope, and +PAF s/p Watchman Gastrointestinal ROS: No abdominal pain, No change in bowel habits, No significant heartburn, No significant change in appetite, No nausea, vomiting, diarrhea, or constipation, No hematemesis, No blood in stools or black tarry stools, No abdominal bloating or early satiety, and No dysphagia Genito-Urinary Female ROS: No dysuria and No frequency Musculoskeletal/Extremities ROS: No pain, redness or swelling on the joints Hematologic/Lymphatic ROS: +severe anemia requiring transfusion as above Skin/Integumentary ROS: No rash Neurologic ROS: No headaches and No seizures Endocrine ROS: +history of diabetes and +hypothyroidism Psychiatric ROS: +depression ADL skills: dependent Ambulates with walker OBJECTIVE: PHYSICAL EXAM: I reviewed the most recent facilities vitals. Refer to vital signs flowsheet in skilled nursing chart.General: alert, no distress, well nourished, and well developed Head: Normocephalic, No masses, lesions, tenderness or abnormalities Eye Exam: PERRLA, extraocular movements intact, conjunctiva are pink and non- injected, sclera clear Ears: External ears normal Nose: no mucosal erythema, no mucosal edema, no purulent discharge Oropharynx: no exudate, no erythema, lips, buccal mucosa, and tongue normal, and mucous membranes are moist Neck: supple, no adenopathy, no bruits Heart: regular rate & rhythm and no gallops Lungs: chest symmetric with normal AP diameter, no chest deformities noted, no chest wall tenderness, lungs clear to auscultation, decreased breath sounds Abdomen: abdomen soft, non-tender, normal bowel sounds, and no masses or organomegaly Extremities: no edema, no clubbing, no cyanosis Neuro Exam: alert & oriented x 3 with fluent speech, no focal motor/sensory deficits ASSESSMENT: Iron deficiency anemia, unspecified iron deficiency anemia type (Primary)--s/p transfusion of 2 units PRBCs, and 5 days of Venofer. Continue ferrous sulfate, folic acid, and B12 supplements. Keep follow-up with hematology 09/18/23 and also follow-up with GI as directed for possible EGD and colonoscopy. Paroxysmal atrial fibrillation (HCC)--no anticoagulation due to anemia/GI bleeding. S/p Watchman procedure. To have BRENDAN 09/15/23. Presence of Watchman left atrial appendage closure device--continue aspirin 81 mg and Plavix 75 mg daily x 45 days post-procedure. Angiodysplasia of colon with hemorrhage--as above Type 2 diabetes mellitus with hemoglobin A1c goal of less than 7.0% ([facility])--diet controlled. PVD (peripheral vascular disease) ([facility])--no ulcers or claudication. Chronic diastolic CHF (congestive heart failure) ([facility])--appears compensated. Continue torsemide 10 mg daily. Type 2 diabetes mellitus with stage 3b chronic kidney disease, without long-term current use of insulin ([facility])--GFR stable but trending toward stage IV CKD. Acquired hypothyroidism--TSH in hospital elevated but with normal free T4. Continue levothyroxine 125 mcg daily Cardiac pacemaker in situ Current moderate episode of major depressive disorder without prior episode ([facility])--continue sertraline 150 mg daily. Pure hypercholesterolemia--continue atorvastatin 20 mg daily. PLAN: 1. Continue present medication(s): Referral(s) to: Hematology on 09/18/23 as scheduled. Having BRENDAN 09/15/23. Follow- up with gastroenterology to discuss possible EGD and colonoscopy. 2. Admission orders, medications, labs, hospital records and care plan reviewed. 3. Property Economist consult, Physical Therapy, Occupational Therapy, and Speech Therapy ordered. 4. Care plan reviewed. 5. Advance Directives were discussed: Full Code 6. Detention Home Treatment Given: n/a Electronically signed by: Vangie Silveira MD I spent a total of 51 minutes coordinating, documenting, and providing care for this patient excluding time spent in the performance of separately billed services or time spent by another provider/QHP. documented in this encounter Plan of Treatment Upcoming Encounters Date Type Department Care Team (Late st Contact Info) Description 09/15/2023 8:00 AM EST Appointment Cardiac Studies [address] [address] 09/15/2023 3:20 PM EST Pharmacy Family Practice [address] [place] [address] [address] [place] [id number] College, Pharmacist [address] [place] [address] 09/15/2023 3:40 PM EST Office Visit Family Practice [address] [place] [address] [address] [place] [address] Florentin Calvo DO [address] [place] [address] 09/18/2023 9:30 AM EST Office Visit Hematology/Oncology [facility] [address] [place] [address] Nereyda Metz CRNP [address] [place] [address] 10/06/2023 8:30 AM EST Office Visit Cardiology, [facility] [address] [facility] [place] [address] Stephen Hewitt, DO 132 [facility] [place] [address] 10/14/2023 2:30 PM EST Office Visit Hematology/Oncology [facility] [address] [place] [address] Nereyda Metz CRNP [address] [place] [address] 10/24/2023 2:30 PM EST Office Visit Gynecology/Oncology, [place] [address] [place] [address] Vanessa Elena PA-C [address] [place] [address] 11/04/2023 11:00 AM EDT Office Visit Otolaryngology [facility] [address] [facility] [place] [address] Cheri Castillo PA-C [facility] [place] [address] 12/08/2023 2:20 PM EDT Office Visit Family Practice [address] [place] [address] [address] [place] [address] Florentin Calvo, [address] [place] [address] 01/21/2024 2:40 PM EDT Office Visit Otolaryngology [facility] [address] [place] [address] Cheri Castillo PA-C [address] [facility] [place] [address] 02/17/2024 3:30 PM EDT Office Visit Nephrology, Jerri Zamora [address] [facility] [place] [address] Michelle Ivy PA-C [address] [facility] [place], [place] [address] 06/03/2024 2:15 PM EDT Office Visit Ophthalmology, [facility] [address] [facility] [place] [address] Wilbur Benavides, DO [address] [place] [address] 08/09/2024 1:00 PM EST Nurse Only Ancillary [address] [facility] 293 [facility], [place] [address] College, Nurse Annual Wellness Visit [address] [facility] [address] [place] [address] Health Maintenance Due Date Last Done Comments Hepatitis B (1 of 3 - Risk 3-dose series) 2000 TSH 09/24/2023 09/24/2022, 0110/2022, 02/12/2022, Additional history exists Diabetic Foot Exam 10/01/2023 10/01/2022, 0 10/26/2021, 12/05/2020, Additional history exists HbA1c 02/14/2024 2023, 01/25, 08/27/2022, Additional history exists Albumin/Creatinine Ratio 02/22/2024 023, 05/01/2022, 10/26/2021, Additional history exists GFR 03/08/2024 09/08/2023, 07/26, 08/20/2023, Additional history exists Diabetic Eye Exam 05/22/2024 05/22/2023, , 05/22/2023, Additional history exists CKD PHOS USE SMARTSET 47527 08/19/202407/26, 05/01/2022, 04/03/2022, Additional history exists Depression Screening 08/21/2024 08/21/2023 CKD HGB USE SMARTSET 85465 09/08/202409/08, 08/20/2023, 08/20/2023, Additional history exists DXA [...] this encounter Medical Devices Implanted Type Area Carroting Machine Offbearer Device Identifier Shelf Expiration Date Model / Serial / Lot Cath Thermodilution 6fr - [id number] Implanted:Qty: 1 on 01/24/2023 by Wilbur Rivera MD at [facility] [employer] [id number] 10/15/2024 [id number] / / [id number] Mirtaclip G4 - [id number] Implanted:Qty: 1 on 03/10/2023 at [facility] [employer] 11/19/2023 [id number] / / [id number] Device Watchman Flx 31mm - [id number] Implanted:Qty: 1 on 07/31/2023 by Wilbur Rivera MD at [facility] [employer] : INTRV CARD [id number] 12/02/2025 [id number] / / [id number] documented as of this encounter Visit Diagnoses Diagnosis Iron deficiency anemia, unspecified iron deficiency anemia type- Primary Paroxysmal atrial fibrillation (HCC) Atrial fibrillation Presence of Watchman left atrial appendage closure device Angiodysplasia of colon with hemorrhage Angiodysplasia of intestine with hemorrhage Type 2 diabetes mellitus with hemoglobin A1c goal of less than 7.0% (HCC) PVD (peripheral vascular disease) (HCC) Peripheral vascular disease, unspecified Chronic diastolic CHF (congestive heart failure) (HCC) Chronic diastolic heart failure Type 2 diabetes mellitus with stage 3b chronic kidney disease, without long-term current use of insulin (HCC) Acquired hypothyroidism Unspecified hypothyroidism Cardiac pacemaker in situ Current moderate episode of major depressive disorder without prior episode (HCC) Pure hypercholesterolemia documented in this encounter Advance Directives Documents on File Type Date Recorded Patient Director Of Nurses Registry Expl anation Advance Directives and Living Will 11/29/2022 ADVANCE DIRECTIVE / LIVING WILL Power of Foreign Correspondent 11/29/2022 POWER OF A TTORNEY Advance Directives and Living Will 10/24/2014 ADVANCE DIRECTIVE / LIVING WILL Power of Foreign Correspondent 10/24/2014 POWER OF A TTORNEY Latest Code [...] patient have Health Care Power of Foreign Correspondent? No Code Status History Code Status Date [...] Name Relationship Healthcare Agent [facility] josiah Communication Bright Barakat Adult Child Health Care Agen t (per Health Care Power of Foreign Correspondent document) Care Teams Shellac Polisher Relationship Specialty Start Date End Date Florentin Calvo DO [address] [place] [address] PCP - General Internal Medicine 03/24/13 documented as of this encounter
--- OUTSIDE RECORDS SUMMARY | 2023-10-10 09:37 | External Medical Summary | Summary of Care ---
Author Name Unknown Organization [facility] Address [address] [place] [address] Phone [phone] Care Team Providers Care Field Services Analyst Name Role Phone Florentin Calvo DO Primary Care Provider [phone] Reason for Visit * Reason Onset Date Comments Order Request 09/12/2023 Labs Encounter Details Date Type Department Care Team (Late st Contact Info) Description 09/12/2023 Telephone Family Practice 65 [facility] [address] [place] [address] Florentin Calvo DO [address] [place] [address] Order Request (Labs) Allergies Active Allergy Reactions Criticality Noted Date [...] Dispensed Refills Start Date End Date Status [email or web address] w/Device KitIndications:Type 2 diabetes mellitus with hemoglobin [...] Wheezing. 15 g 12 06/13/2022 Active OneTouch VerOceansblue Systems In Vitro Strip (Glucose Blood) Test [...] DIRECTED 100 Tablet 3 03/31/2023 Active Ipratropium [place] 0.03 % Nasal Solution (Atrovent)Indicatio ns:Chronic rhinitis [...] bedtime. 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 [place] can hear w/ hearing aid 03/07/2023 [...] Telephone Encounter - Hilda Awad LPN - 09/12/2023 12:46 PM EST Patient is aware and will comply. * Telephone Encounter - Florentin Calvo DO - 09/12/2023 12:34 PM EST Labs done on 09/08/2023 Will repeat at visit next week * Telephone Encounter - Hilda Awad LPN - 09/12/2023 12:00 PM EST Please confirm patient is under care of SNF provider. Thank you * Telephone Encounter - Grace Jeffries OSA - 09/12/2023 11:54 AM EST Just has lab drawn at [facility] Under impression that she was to get another draw Please contact daughter documented in this encounter Plan of Treatment Upcoming Encounters Date Type Department Care Team (Late st Contact Info) Description 09/15/2023 8:00 AM EST Appointment Cardiac Studies [facility] [place] [address] [place] [address] 09/15/2023 9:30 AM EST Hospital Encounter CRS Waiting [facility], Cardiac Recovery Suite Waiting Unit, H [address] [place] [address] Teresa Hammond MD [address] [place] [address] 09/15/2023 9:30 AM EST - 09/15/2023 10:00 AM EST Surgery CRS Waiting [facility], Cardiac Recovery Suite Waiting Unit, H [address] [place] [address] [place], Cardiac Pathology Technician [address] [place] [address] OBSERVATION 09/15/2023 3:20 PM EST Pharmacy Family Practice 65 [facility] 293 [place] [phone] College, Pharmacist [address] [place] [address] 09/15/2023 3:40 PM EST Office Visit Family Practice 65 [facility] 293 [place] [phone] Florentin Calvo, DO 293 [facility], [place] [address] 09/18/2023 9:30 AM EST Office Visit Hematology/Oncology [facility] [address] Nereyda Metz CRNP [address] [place] [address] 10/06/2023 8:30 AM EST Office Visit Cardiology, [facility] 132 [facility] [place] [address] Stephen Hewitt, DO 132 [facility] [address] 10/14/2023 2:30 PM EST Office Visit Hematology/Oncology [facility] 200 [facility] [address] Nereyda Metz CRNP [address] [place] [address] 10/24/2023 2:30 PM EST Office Visit Gynecology/Oncology, [place] [address] [place] [address] Vanessa Elena PA-C [address] [place] [address] 11/04/2023 11:00 AM EDT Office Visit Otolaryngology [facility] 132 [facility] [place] [address] Cheri Castillo PA-C 132 [place] [address] 12/08/2023 2:20 PM EDT Office Visit Family Practice [address] [place] [address] 293 [place] [address] Florentin Calvo, DO 293 [facility] [place] [address] 01/21/2024 2:40 PM EDT Office Visit Otolaryngology [facility] 132 [facility] [place] [address] Cheri Castillo PA-C 132 [facility] [place] [address] 02/17/2024 3:30 PM EDT Office Visit Nephrology, [facility] 200 [facility] [place] [address] ZeMichelle chiu PA-C 200 [facility] [place] [address] 06/03/2024 2:15 PM EDT Office Visit Ophthalmology, [facility] 132 [facility] [place] [address] Wilbur Benavides, [address] [place] [address] 08/09/2024 1:00 PM EST Nurse Only Ancillary 65 [facility] [address] [place] [address] College, Nurse Annual Wellness Visit [address] [place] [address] Scheduled Procedures Name Priority Associated Diagnoses Date/Ti [...] Additional history exists CKD PHOS USE SMARTSET 73942 08/19/202407/26, 05/01/2022, 04/03/2022, Additional history exists Depression Screening 08/21/2024 08/21/2023 CKD HGB USE SMARTSET 06801 09/08/202409/08, 08/20/2023, 08/20/2023, Additional history exists DXA [...] this encounter Medical Devices Implanted Type Area Inseminator Device Identifier Shelf Expiration Date Model / Serial / Lot Cath Thermodilution 6fr - [id number] Implanted:Qty: 1 on 01/24/2023 by Wilbur Rivera MD at [facility] [employer] TERE [id number] 10/15/2024 [id number] / / [id number] Mirtaclip G4 - [id number] Implanted:Qty: 1 on 03/10/2023 at [facility] [employer] 11/19/2023 [id number] / / [id number] Device Watchman Flx 31mm - [id number] Implanted:Qty: 1 on 07/31/2023 by Wilbur Rivera MD at [facility] ImageProtect : INTRV CARD [id number] 12/02/2025 [id number] documented as of this encounter Advance Directives Documents on File Type Date Recorded 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 No Code Status History Code Status [...] Agents on File Name Relationship Healthcare Agent Christin rahman Communication Bright Barakat Adult Child Health Care Agen t (per Health Care Power of House Piping Inspector document) Care Teams Field Services Analyst Relationship Specialty Start Date End Date Florentin Calvo DO [address] [place] [address] PCP - General Internal Medicine 03/24/13 documented as of this encounter
--- OUTSIDE RECORDS SUMMARY | 2023-10-10 09:38 | External Medical Summary | Summary of Care ---
Author Name Unknown Organization [facility] Address [address] [place] [address] Phone [phone] Care Team Providers Care Low Voltage Electrician Name Role Phone Florentin Calvo DO Primary Care Provider [phone] Reason for Visit * Reason Onset Date Comments Assisted Visit - Admission 09/10/2023 Encounter Details Date Type Department Care Team (Latest Contact Info) Description 09/09/2023 11:20 AM EST Assisted Visit [facility] [address] [place] [address] Vangie Silveira MD [address] [place] [address] [place] [address] Iron deficiency anemia, unspecified [...] as of this encounter (statuses as of 09/10/2023) Medications Medication Sig Dispensed Refills Start Date End Date Status Mireya Dia w/Device KitIndications:Typ e 2 diabetes mellitus with hemoglobin A1c goal of less than 7.0% ([facility]) Use up to 1 times [...] DIRECTED 100 Tablet 3 03/31/2023 Active Ipratropium [place] 0.03 % Nasal Solution (Atrovent)Indicati ons:Chronic rhinitis [...] bedtime. 90 Tablet 3 05/16/2023 Active Tiotropium [place]-Olodaterol 2.5-2.5 MCG/ACT Inhalation Aerosol Solution (Stiolto Respimat) [...] as of this encounter (statuses as of 09/10/2023) Active Problems Problem Noted Date Diagnosed Date Hypertensive chronic kidney disease with stage 1 through stage 4 chronic kidney disease, or unspecified chronic kidney disease 08/25/2023 Presence of Watchman left atrial appendage closu re device 07/31/2023 S/P mitral valve clip implantation 03/06/2023 Atherosclerosis of [place] 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 02/13/2023 [...] Obstructive sleep apnea of adult 09/09/2014 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 [place] can hear w/ hearing aid 03/07/2023 Are [...] This note pertains to care provided at [facility]. Please see facility medical record for original note. This note is not to be edited or addended in [facility]. Editing or addending needs to occur in the facilities medical record. S: Inga Barakat had been admitted to [facility] from [facility] for PT and OT. Recently admitted to [facility] on 08/22/23 because of weakness, stroke-like symptoms, [...] weakness. Patient had undergone Watchman procedure at [facility] for atrial fibrillation on 07/31/23 to avoid anticoagulation due to recurrent severe anemia/GI bleeding. She is to take dual antiplatelet therapy with aspirin and Plavix for 45 days following this procedure and have BRENDAN done 09/15/23. Patient had been admitted to [facility] for stroke work up with similar symptoms [...] and headache. Shewas seen by tele-neurologist from [place]. Her hemoglobin was 6.5 and it was [...] goal of less than 7.0% ([facility]) E11.9 Vertigo R42 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 claudication M48.061 Hypothyroidism E03.9 Displacement of cervical intervertebral disc without myelopathy M50.20 Meniere's disease H81.09 Paroxysmal atrial fibrillation ([facility]) I48.0 Obstructive sleep apnea of adult G47.33 Tremor R25.1 Iron deficiency anemia D50.9 Angiodysplasia of colon with hemorrhage K55.21 Acquired renal cyst N28.1 Controlled substance agreement signed Z79.899 Type 2 diabetes mellitus with polyneuropathy ([facility]) E11.42 Secondary hyperparathyroidism, renal ([facility]) N25.81 Pulmonary hypertension ([facility]) I27.20 Current moderate episode of major depressive disorder without prior episode ([facility]) F32.1 Moderate persistent asthma without complication J45.40 Gastro-esophageal reflux disease without esophagitis K21.9 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 ([facility]) E11.319 Pure hypercholesterolemia E78.00 Aneurysm of left carotid artery ([facility]) I72.0 Aortic atherosclerosis ([facility]) I70.0 Chronic kidney disease, stage 3b ([facility]) N18.32 PVD (peripheral vascular disease) ([facility]) I73.9 Chronic diastolic CHF (congestive heart failure) ([facility]) I50.32 Type 2 diabetes mellitus with stage 3b chronic kidney disease, without long-term current use of insulin ([facility]) E11.22, N18.32 Cardiac pacemaker in situ Z95.0 History of endometrial cancer Z85.42 Normocytic anemia D64.9 Primary osteoarthritis of right knee M17.11 Severe tricuspid regurgitation I07.1 History of TIA (transient ischemic attack) Z86.73 Atherosclerosis of [place] coronary artery without angina pectoris I25.10 S/P mitral valve clip implantation Z98.890, Z95.818 Presence of Watchman left atrial appendage closure device Z95.818 Hypertensive chronic kidney disease with stage 1 through stage 4 chronic kidney disease, or unspecified chronic kidney disease I12.9 Current Outpatient Medications Medication Sig Dispense Refill Navarik w/Device Kit Use up to 1 times [...] as needed for Wheezing. 15 g 12 XMPieToChatosity Verio In Vitro Strip (Glucose Blood) Test [...] MOUTH EVERY DAY DIRECTED 100Tablet 3 Ipratropium [place] 0.03 % Nasal Solution (Atrovent) Administer 2 [...] mouth at bedtime. 90 Tablet 3 Tiotropium [place]-Olodaterol 2.5-2.5 MCG/ACT Inhalation Aerosol Solution (Stiolto Respimat) [...] Other (Please comment) QTC prolongation at [facility] Nickel Swelling Other reaction(s): Unknown Social History [...] (RECTUM) 10/12/2014 inflammatory tissue on bx, diverticulosis/[facility] COLONOSCOPY, DIAGNOSTIC (RECTUM) 01/05/2016 diverticulosis, multiple non-bleeding colonic angioectasias COLONOSCOPY, DIAGNOSTIC (RECTUM) 04/15/2016 angiodysplastic lesion, diverticulosis/COLONOSCOPY FLEXIBLE PROXIMAL DIAGNOSTIC performed by Izzy Stone MD at [facility] COLONOSCOPY, DIAGNOSTIC (RECTUM) 11/10/2020 Hemorrhoids, multi polyps, diverticulosis in sigmoid colon/ biopsy show adenomatous polyp/ COLONOSCOPY FLEXIBLE PROXIMAL DIAGNOSTIC performed by Maine Stone MD at [facility] COLONOSCOPY, DIAGNOSTIC (RECTUM) 03/11/2022 poor prep / [facility] CORONARY ANGIOGRAPHY W/RIGHT+LEFT CATH Right 01/24/2023 CORONARY ANGIOGRAPHY W/RIGHT+LEFT CATH performed by Wilbur Rivera MD at [facility] CYSTOSCOPY 06/2012 EGD, FLEXIBLE, DIAGNOSTIC 10/12/2014 normal bx, /[facility] EGD, FLEXIBLE, DIAGNOSTIC 01/05/2016 ESOPHAGOGASTRODUODENOSCOPY (EGD), FLEXIBLE, TRANSORAL, DIAGNOSTIC performed by Maine Stone MD at [facility] EGD, FLEXIBLE, DIAGNOSTIC 03/11/2022 Multiple small non-bleeding fundic gland polyps / [facility] EGD, FLEXIBLE, DIAGNOSTIC 12/09/2022 mild-mod inflammation / [facility] LAPAROSCOPY TOTAL HYSTX, UTERUS 250GM OR LESS TUBE/OVARY N/A 02/22/2020 ROBOTIC LAPAROSCOPIC HYSTERECTOMY REMOVAL TUBES AND OVARIES FOR UTERUS 250GM OR LESS performed by Florentin Perez MD at OR [facility] LAPAROSCOPY; CHOLECYSTECTOMY N/A 06/06/2020 LIGATE/CUT OVIDUCT(S) MAMMOGRAM BREAST NEEDLE BIOPSY CORE LEFT Left 09/19/2015 benign NECK SPINE FUSION (CERV, BELOW C2) 1993 1999,2011 PATIENT EDU, LUMBAR LAMINECTOMY 2001 1996 too PERC CLOSURE TRANSCATH LEFT ATRIAL APPENDAGE W/ENDOCARDIAL IMPLANT Bilateral 07/31/2023 PERCUTANEOUS CLOSURE LEFT ATRIAL APPENDAGE IMPLANT performed by Wilbur Rivera MD at [facility] AZ TONSILLECTOMY PRIMARY/SECONDARY LESS THAN AGE 12 Bilateral REPAIR RUPTURED ROTATOR CUFF, ACUTE Left 08/08/2015 SINUS SURGERY PROCEDURE NEC 1994 TRANSCATH REPAIR MITRAL VALVE, INITIAL Bilateral 03/06/2023 TRANSCATHETER MITRAL VALVE REPAIR performed by Wilbur Rivera MD at [facility] Family History Problem Relation Age of Onset [...] vitals. Refer to vital signs flowsheet in detention chart.General: alert, no distress, well nourished, and [...] goal of less than 7.0% ([facility])--diet controlled. PVD (peripheral vascular disease) ([facility])--no ulcers or claudication. Chronic diastolic CHF (congestive heart failure) ([facility])--appears compensated. Continue torsemide 10 mg daily. Type 2 diabetes mellitus with stage 3b chronic kidney disease, without long-term current use of insulin ([facility])--GFR stable but trending toward stage IV CKD. Acquired hypothyroidism--TSH in hospital elevated but with normal free T4. Continue levothyroxine 125 mcg daily Cardiac pacemaker in situ Current moderate episode of major depressive disorder without prior episode ([facility])--continue sertraline 150 mg daily. Pure hypercholesterolemia--continue atorvastatin 20 mg daily. PLAN: 1. Continue present medication(s): Referral(s) to: Hematology on 09/18/23 as scheduled. Having BRENDAN 09/15/23. Follow- up with gastroenterology to discuss possible EGD and colonoscopy. 2. Admission orders, medications, labs, hospital records and care plan reviewed. 3. Inserting Press Operator consult, Physical Therapy, Occupational Therapy, and Speech Therapy ordered. 4. Care plan reviewed. 5. Advance Directives were discussed: Full Code 6. Nursing Home Home Treatment Given: n/a Electronically signed by: [...] 09/15/2023 8:00 AM EST Appointment Cardiac Studies [address] [address] 09/15/2023 3:20 PM EST Pharmacy Family Practice [address] [place] [address] [address] [place] [phone] College, Pharmacist [address] [place] [address] 09/15/2023 3:40 PM EST Office Visit Family Practice [address] [place] [address] [address] [place] [address] Florentin Calvo DO 293 [place] [address] 09/18/2023 9:30 AM EST Office Visit Hematology/Oncology [facility] 200 [place] [address] Nereyda Metz CRNP [address] [place] [address] 10/06/2023 8:30 AM EST Office Visit Cardiology, [facility] 132 [facility] [place] [address] Stephen Hewitt, DO 132 [facility] [place] [address] 10/14/2023 2:30 PM EST Office Visit Hematology/Oncology [facility] 200 [place] [address] Nereyda Metz CRNP [address] [place] [address] 10/24/2023 2:30 PM EST Office Visit Gynecology/Oncology, [place] [address] [place] [address] Vanessa Elena PA-C [address] [place] [address] 11/04/2023 11:00 AM EDT Office Visit Otolaryngology [facility] 132 [facility] [place] [address] Cheri Castillo PA-C 132 [facility] [address] 12/08/2023 2:20 PM EDT Office Visit Family Practice [address] [place] [address] [address] [place] [address] Florentin Calvo, 293 [place] [address] 01/21/2024 2:40 PM EDT Office Visit Otolaryngology [facility] [address] [place] [address] Cheri Castillo PA-C 132 [facility] [address] 02/17/2024 3:30 PM EDT Office Visit Nephrology, [place] [place] 200 [facility] [place] [address] Michelle Ivy PA-C 200 [facility] [place], [place] [address] 06/03/2024 2:15 PM EDT Office Visit Ophthalmology, [facility] 132 [facility] [place] [address] Wilbur Benavides, DO [address] [place] [address] 08/09/2024 1:00 PM EST Nurse Only Ancillary 65 [facility] 293 [facility], [place] [address] College, Nurse Annual Wellness Visit 65 [facility] 293 [facility] [place] [address] Health Maintenance Due Date Last Done Comments [...] Additional history exists CKD PHOS USE SMARTSET 13650 08/19/202407/26, 05/01/2022, 04/03/2022, Additional history exists Depression Screening 08/21/2024 08/21/2023 CKD HGB USE SMARTSET 30619 09/08/202409/08, 08/20/2023, 08/20/2023, Additional history exists DXA [...] this encounter Medical Devices Implanted Type Area Frame Trimmer Device Identifier Shelf Expiration Date Model / Serial / Lot Cath Thermodilution 6fr - [id number] Implanted:Qty: 1 on 01/24/2023 by Wilbur Rivera MD at [facility] [employer] [id number] 10/15/2024 [id number] / / [id number] Mirtaclip G4 - [id number] Implanted:Qty: 1 on 03/10/2023 at [facility] [employer] 11/19/2023 [id number] / / [id number] Device Watchman Flx 31mm - [id number] Implanted:Qty: 1 on 07/31/2023 by Wilbur Rivera MD at [facility] [employer] : INTRV CARD [id number] 12/02/2025 [id number] / [id number] documented as of this encounter Visit Diagnoses [...] on File Type Date Recorded 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 No Code Status History Code Status Date [...] Agen t (per Health Care Power of Household Personal Assistant document) Care Teams Low Voltage Electrician Relationship Specialty Start Date End Date Florentin Calvo DO [address] [place] [address] PCP - General Internal Medicine 03/24/13 documented as of this encounter
--- OUTSIDE RECORDS SUMMARY | 2023-10-10 09:38 | External Medical Summary ---
Author Name Unknown Address Unknown Organization [id number]:[facility] EPIFANIO [address] [place] [address] Laboratory Report Ordering Provider Test Date Status BETHEL OLSON 09/08/2023 05:26:00 Final Observation Date Value Abnormality Reference (Units ) Status BUN 09/08/2023 05:26:00 45 Above high normal 6-20 (mg/dL) Final Creatinine 09/08/2023 05:26:00 1.9 Above high normal 0.5-1.0 (mg/dL) Final Glomerular filtration rate/1.73 sq M.predicted [Volume Rate/Area] in Serum, Plasma or Blood by Creatinine-based formula (CKD-EPI) 09/08/2023 05:26:00 25 Below low normal >=60 (mL/min) Final eGFR is calculated based on the CKD-EPI 2020 equation SODIUM 09/08/2023 05:26:00 138 135-146 (m mol/L) Final Potassium 09/08/2023 05:26:00 4.5 3.5-5.1 (m mol/L) Final Cl 09/08/2023 05:26:00 106 98-107 (mm ol/L) Final CO2 09/08/2023 05:26:00 22 22-32 (mmo l/L) Final Anion gap 09/08/2023 05:26:00 10 7-15 (mmol /L) Final Glucose 09/08/2023 05:26:00 104 70-120 (mg /dL) Final Calcium 09/08/2023 05:26:00 8.9 8.4-10.2 ( mg/dL) Final Performing Location [facility] EPIF[facility]IO 57-[address] - [address] [place] [address]
--- OUTSIDE RECORDS SUMMARY | 2023-10-10 09:38 | External Medical Summary | Summary of Care ---
Author Name Unknown Organization [facility] Address [address] [place] [address] Phone [phone] Care Team Providers Care Dna Analyst Name Role Phone Florentin Calvo DO Primary Care Provider [phone] Reason for Visit * Reason Onset Date Comments Skilled Visit 09/04/2023 Encounter Details Date Type Department Care Team (Late st Contact Info) Description 09/04/2023 4:00 PM EST [facility] [address] [place] [address] Allyssa Mitchell PA-C [address] [place] [address] Acute posthemorrhagic anemia*; Iron deficiency anemia due to chronic blood loss; Generalized weakness; Personal history of fall; Chronic atrial fibrillation; Presence of Watchman left atrial appendage closure device; Severe tricuspid regurgitation; Chronic diastolic CHF (congestive heart failure) ([facility]); Moderate persistent asthma without complication; Type 2 diabetes mellitus with hemoglobin A1c goal of less than 7.0% ([facility]); Secondary hyperparathyroidism, renal ([facility]); Cardiac pacemaker in situ; Sick sinus syndrome ([facility]); History of TIA (transient ischemic attack); Pulmonary hypertension ([facility]); Atherosclerosis of [place] coronary artery of [place] heart without angina pectoris; Chronic kidney disease, stage 3b (HCC); Acquired hypothyroidism; Nocturnal hypoxia Allergies Active Allergy Reactions Criticality Noted Date [...] as of this encounter (statuses as of 09/04/2023) Medications Medication Sig Dispensed Refills Start Date [...] for Wheezing. 15 g 12 06/13/2022 Active [email or web address] Solutions VerSynthox In Vitro Strip (Glucose Blood) Test blood [...] DIRECTED 100 Tablet 3 03/31/2023 Active Ipratropium [place] 0.03 % Nasal Solution (Atrovent)Indicat ions:Chronic rhinitis Administer 2 Sprays into nostril in the morning and 2 Sprays before bedtime. 90 mL 3 04/01/2023 Active Sotalol HCl 80 MG Oral Tablet (Betapace)Indicat ions:Paroxysmal atrial fibrillation (HCC) Take 0.5 Tablets by mouth in the morning and 0.5 Tablets before bedtime. 300 Tablet 3 04/10/2023 Active Additional Information Patient taking differently:40 mg OralDaily(AM), Reported on 09/04/2023 Pantoprazole Sodium 40 MG Oral Tablet Delayed Release (Protonix) Take 1 Tablet by mouth in the morning and 1 Tablet by mouth in the evening. 200 Tablet 1 05/05/2023 Active Allopurinol 300 MG Oral Tablet (Zyloprim) Take 1 Tablet by mouth at bedtime. 90 Tablet 3 05/16/2023 Active Tiotropium [place]-Olodatero l 2.5-2.5 MCG/ACT Inhalation Aerosol Solution (Stiolto Respimat) Inhale 2 Puffs by mouth in the morning. 12 g 3 05/23/2023 Active Levothyroxine Sodium 125 MCG Oral Tablet (Levoxyl) TAKE ONE TABLET BY MOUTH FIRST THING IN THE MORNING 100 Tablet 3 07/22/2023 07/21/20 24 Active Clopidogrel Bisulfate 75 MG Oral Tablet (pLAVix) Take 1 Tablet by mouth every evening. 30 Tablet 5 07/31/2023 Active Torsemide 10 MG Oral Tablet (Demadex) Take 1 Tablet by mouth in the morning. 100 Tablet 3 08/20/2023 Active Folic Acid 1 MG Oral TabletIndications :Chronic atrial fibrillation (HCC) TAKE ONE TABLET BY MOUTH EVERY MORNING 100 Tablet 1 09/02/2023 09/01/19 25 Active Montelukast Sodium 10 MG Oral Tablet (Singulair)Indica tions:Moderate persistent asthma without complication TAKE ONE TABLET BY MOUTH AT BEDTIME 100 Tablet 3 09/02/2023 09/01/19 25 Active LORazepam 1 MG Oral Tablet (Ativan)Indicatio ns:Primary insomnia Take 1 Tablet by mouth at bedtime as needed for Sleep or Anxiety. 30 Tablet 0 08/07/2023 09/04/19 24 Discontinued Hospital, Clinic, or Other Facility Administered [...] as of this encounter (statuses as of 09/04/2023) Active Problems Problem Noted Date Diagnosed Date Hypertensive chronic kidney disease with stage 1 through stage 4 chronic kidney disease, or unspecified chronic kidney disease 08/25/2023 Presence of Watchman left atrial appendage closu re device 07/31/2023 S/P mitral valve clip implantation 03/06/2023 Atherosclerosis of [place] 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 02/13/2023 [...] Obstructive sleep apnea of adult 09/09/2014 Overview: TIMBER SIZER Last Assessment & Plan: Now just using [...] as of this encounter (statuses as of 09/04/2023) Resolved Problems Problem Noted Date Diagnosed Date [...] as of this encounter (statuses as of 09/04/2023) Immunizations Name Administration Dates Next Due COVID-19 mRNA, LNP-s, No Pre serve, 2-Dose Series (Moderna) 06/23/2021,10/25/2020,09/28/2020 COVID-19, LNP-s, No Preserve , Larry-sucrose, Ages 12+ (Pfizer) 04/09/2022 COVID-19, MRNA-LNP, 23-24, P F, 30 MCG/0.3 mL, 12 YRS AND ABOVE, IM ([employer]-Comirnaty) 06/09/2023 Covid-19, Mrna, Lnp-s, Pf, B ivalent, [...] Sign Reading Time Taken Comments Blood Pressure 135/66 09/04/2023 5:50 PM EST Pulse 83 09/04/2023 5:50 PM EST Temperature 36.5 C (97.7 F) 09/04/2023 5:50 PM ES T Respiratory Rate 16 09/04/2023 5:50 PM EST Oxygen Saturation 96% 09/04/2023 5:50 PM EST room air Inhaled Oxygen Concentration - - Weight - - Height - - Body Mass Index - - documented in this encounter Functional Status Functional Status Response Date of Assess ment Are you deaf or do you have serious difficulty hearing? No-WALES can hear w/ hearing aid 03/07/2023 Are [...] Team (Late st Contact Info) Description 09/11/2023 3:30 PM EST Office Visit Cardiology, [facility] [address] [place] [address] Stephen Hewitt, [address] [place] [address] 09/15/2023 8:00 AM EST Appointment Cardiac Studies [facility] [address] [place] [address] 09/18/2023 9:30 AM EST Office Visit Hematology/Oncology [facility] [place] [address] [facility] [address] Nereyda Metz CRNP [address] [facility] [place] [address] 10/14/2023 2:30 PM EST Office Visit Hematology/Oncology [facility] 200 [facility] [place] [address] Nereyda Metz CRNP 400 [facility] [address] 10/24/2023 2:30 PM EST Office Visit Gynecology/Oncology, [place] [address] [place] [address] Vanessa Elena PA-C [address] [place] [address] 11/04/2023 11:00 AM EDT Office Visit [facility] [place] [address] Cheri Castillo PA-C 132 [facility] [address] 12/08/2023 2:20 PM EDT Office Visit Family Practice [address] [place] [address] [address] [place] [address] Florentin Calvo DO [address] [place] [address] 01/21/2024 2:40 PM EDT Office Visit Otolaryngology [facility] [address] [place] [address] Cheri Castillo PA-C [facility] [place] [address] 02/17/2024 3:30 PM EDT Office Visit Nephrology, [facility] 200 [facility] [place] [address] Michelle Ivy PA-C [address] [place] [address] 06/03/2024 2:15 PM EDT Office Visit Ophthalmology, [facility] [address] [place] [address] Wilbur Benavides, DO [address] [place] [address] 08/09/2024 1:00 PM EST Nurse Only Ancillary 65 [facility] 293 [facility], [place] [address] College, Nurse Annual Wellness Visit 65 [facility] 293 [facility], [place] [address] Health Maintenance Due Date Last Done Comments [...] Additional history exists CKD PHOS USE SMARTSET 84161 08/19/202407/26, 05/01/2022, 04/03/2022, Additional history exists CKD HGB USE SMARTSET 28339 08/20/202408/20, 08/20/2023, 08/19/2023, Additional history exists Depression [...] encounter Medical Devices Implanted Type Area Director Treasurer Device Identifier Shelf Expiration Date Model / Serial / Lot Cath Thermodilution 6fr - [id number] Implanted:Qty: 1 on 01/24/2023 by Wilbur Rivera MD at [facility] [employer] [id number] 10/15/2024 [id number] / / [id number] Mirtaclip G4 - [id number] Implanted:Qty: 1 on 03/10/2023 at [facility] [employer] 11/19/2023 [id number] / / [id number] Device Watchman Flx 31mm - [id number] Implanted:Qty: 1 on 07/31/2023 by Wilbur Rivera MD at [facility] [employer] (Chapter 11) : INTRV CARD [id number] 12/02/2025 [id number] / [id number] documented as of this encounter Visit Diagnoses Diagnosis Acute posthemorrhagic anemia- Primary Iron deficiency anemia due to chronic blood loss Iron deficiency anemia secondary to blood loss (chronic) Generalized weakness Other malaise and fatigue Personal history of fall Chronic atrial fibrillation Atrial fibrillation Presence of Watchman left atrial appendage closure device Severe tricuspid regurgitation Diseases of tricuspid valve Chronic diastolic CHF (congestive heart failure) (HCC) Chronic diastolic heart failure Moderate persistent asthma without complication Unspecified asthma Type 2 diabetes mellitus with hemoglobin A1c goal of less than 7.0% (HCC) Secondary hyperparathyroidism, renal (HCC) Secondary hyperparathyroidism (of renal origin) Cardiac pacemaker in situ Sick sinus syndrome (HCC) Sinoatrial node dysfunction History of TIA (transient ischemic attack) Transient ischemic attack (TIA), and cerebral infarction without residual deficits Pulmonary hypertension (HCC) Other chronic pulmonary heart diseases Atherosclerosis of [place] coronary artery of [place] heart without angina pectoris Chronic kidney disease, stage 3b (HCC) Acquired hypothyroidism Unspecified hypothyroidism Nocturnal hypoxia Hypoxemia documented in this encounter Advance Directives Documents on File Type Date Recorded 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 No Code Status History Code Status [...] Agen t (per Health Care Power of Camp Recreation Specialist document) Care Teams Dna Analyst Relationship Specialty Start Date End Date Florentin Calvo DO [address] [facility] [place] [address] PCP - General Internal Medicine 03/24/13 documented as of this encounter
--- OUTSIDE RECORDS SUMMARY | 2023-10-10 09:38 | External Medical Summary | Summary of Care ---
Author Name Unknown Organization [facility] Address [address] [place] [address] Phone [phone] Care Team Providers Care Photo Mask Inspector Name Role Phone Florentin Calvo DO Primary Care Provider [phone] Reason for Visit * Reason Onset Date Comments Referral 09/09/2023 PT/OT Encounter Details Date Type Department Care Team (Late st Contact Info) Description 09/09/2023 Telephone Family Practice [address] [facility] [place] [address] [place] [address] Florentin Calvo DO [address] [place] [address] Referral (PT/OT) Allergies Active Allergy Reactions Criticality Noted Date Comments Azithromycin Other (Please comment) 12/04/[address] [facility] Celecoxib Hives,Rash High 03/24/2013 Other reaction(s): [...] as of this encounter (statuses as of 09/09/2023) Medications Medication Sig Dispensed Refills Start Date End Date Status Ringerscommunications w/Device KitIndications:Type 2 diabetes mellitus with hemoglobin A1c goal of less than 7.0% ([facility]) Use up to 1 times [...] (Lipitor)Indication s:PVD (peripheral vascular disease) ([facility]),Type 2 diabetes mellitus with stage 3a chronic kidney disease and hypertension ([facility]) TAKE ONE TABLET BY MOUTH EVERY DAY DIRECTED 100 Tablet 3 03/31/2023 Active Ipratropium [place] 0.03 % Nasal Solution (Atrovent)Indicatio ns:Chronic rhinitis Administer 2 Sprays into nostril in the morning and 2 Sprays before bedtime. 90 mL 3 04/01/2023 Active Sotalol HCl 80 MG Oral Tablet (Betapace)Indicatio ns:Paroxysmal atrial fibrillation ([facility]) Take 0.5 Tablets by mouth [...] bedtime. 90 Tablet 3 05/16/2023 Active Tiotropium [place]-Olodaterol 2.5-2.5 MCG/ACT Inhalation Aerosol Solution (Stiolto Respimat) [...] BEDTIME 100 Tablet 3 09/02/2023 09/01/2024 Active documented as of this encounter (statuses as of 09/09/2023) Active Problems Problem Noted Date Diagnosed Date Hypertensive chronic kidney disease with stage 1 through stage 4 chronic kidney disease, or unspecified chronic kidney disease 08/25/2023 Presence of Watchman left atrial appendage closu re device 07/31/2023 S/P mitral valve clip implantation 03/06/2023 Atherosclerosis of [place] 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 02/13/2023 Last Assessment & Plan: Continue statin, sotalol. ASA History of TIA (transient ischemic attack) 11/29 Last Assessment & Plan: -Recent admission to [facility], presented with numbness of tongue and [...] Obstructive sleep apnea of adult 09/09/2014 Overview: TEMPERATURE REGULATOR Last Assessment & Plan: Now just using [...] as of this encounter (statuses as of 09/09/2023) Resolved Problems Problem Noted Date Diagnosed Date [...] as of this encounter (statuses as of 09/09/2023) Immunizations Name Administration Dates Next Due COVID-19 [...] Telephone Encounter - Hilda Elizabeth RN - 09/09/2023 4:26 PM EST noted * Telephone Encounter - Grace Jeffries OSA - 09/09/2023 3:55 PM EST Received call from [facility] about PT/OT and who we used. Daughter hesitant to give answer, so social work nurse call and asked who we use. Told her we use [facility] They were going to call [facility] documented in this encounter Plan of Treatment Upcoming Encounters Date Type Department Care Team (Late st Contact Info) Description 09/11/2023 3:30 PM EST Office Visit Cardiology, [facility] 132 [facility] [place] [address] Stephen Hewitt, [address] [facility] [place] [address] 09/15/2023 8:00 AM EST Appointment Cardiac Studies [facility], [address] [address] 09/15/2023 3:20 PM EST Pharmacy Family Practice [address] [phone] College, Pharmacist [address] [address] 09/15/2023 3:40 PM EST Office Visit Family Practice 65 [facility] 293 [place] [address] Florentin Calvo, DO [address] [place] [address] 09/18/2023 9:30 AM EST Office Visit Hematology/Oncology [facility] 200 [facility], [place] [address] Nereyda Metz CRNP 400 [facility] [place] [address] 10/14/2023 2:30 PM EST Office Visit Hematology/Oncology [facility] [address] [facility] [address] Nereyda Metz CRNP 400 [facility] [place] [address] 10/24/2023 2:30 PM EST Office Visit Gynecology/Oncology, [place] [address] [place] [address] Vanessa Elena PA-C [address] [place] [address] 11/04/2023 11:00 AM EDT Office Visit Otolaryngology [facility] [place] [address] Cheri Castillo PA-C 132 [facility] [place] [address] 12/08/2023 2:20 PM EDT Office Visit Family Practice [address] [place] [address] 293 [place] [address] Florentin Calvo, [address] [place] [address] 01/21/2024 2:40 PM EDT Office Visit Otolaryngology [facility] 132 [facility] [place] [address] Cheri Castillo PA-C 132 [facility] [place] [address] 02/17/2024 3:30 PM EDT Office Visit Nephrology, [facility] [address] [place] [address] ZemaMichelle churchill PA-C [address] [place] [address] 06/03/2024 2:15 PM EDT Office Visit Ophthalmology, [facility] 132 [facility] [place] [address] Wilbur Benavides, DO [address] [place] [address] 08/09/2024 1:00 PM EST Nurse Only Ancillary [address] [facility] [place] 293 [facility], [place] [address] College, Nurse Annual Wellness Visit [address] [facility] 293 [facility], [place] [address] Health Maintenance Due Date Last Done Comments [...] Additional history exists CKD PHOS USE SMARTSET 95917 08/19/202407/26, 05/01/2022, 04/03/2022, Additional history exists Depression Screening 08/21/2024 08/21/2023 CKD HGB USE SMARTSET 72216 09/08/202409/08, 08/20/2023, 08/20/2023, Additional history exists DXA [...] this encounter Medical Devices Implanted Type Area Internal Medicine Hospitalist Device Identifier Shelf Expiration Date Model / Serial / Lot Cath Thermodilution 6fr - [id number] Implanted:Qty: 1 on 01/24/2023 by Wilbur Rivera MD at [facility] [employer] [id number] 10/15/2024 [id number] / / [id number] Mirtaclip G4 - [id number] Implanted:Qty: 1 on 03/10/2023 at [facility] [employer] 47 11/19/2023 [id number] / / [id number] Device Watchman Flx 31mm - [id number] Implanted:Qty: 1 on 07/31/2023 by Wilbur Rivera MD at [facility] [employer] : INTRV CARD [id number] 12/02/2025 [id number] / / [id number] documented as of this encounter Advance Directives Documents on File Type Date Recorded 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 No Code Status History Code Status Date [...] Relationship Healthcare Agent Relationshi p Communication [facility] Adult Child Health Care Agen t (per Health Care Power of Rn International document) Care Teams Photo Mask Inspector Relationship Specialty Start Date End Date Florentin Calvo DO [address] [place] [address] PCP - General Internal Medicine 03/24/13 documented as of this encounter
--- OUTSIDE RECORDS SUMMARY | 2023-10-10 09:38 | External Medical Summary | Summary of Care ---
Author Name Unknown Organization [facility] Address [address] [place] [address] Phone [phone] Care Team Providers Care Commanding Officer Garage Name Role Phone Florentin Calvo DO Primary Care Provider [phone] Encounter Details Date Type Department Care Team (Late st Contact Info) Description 09/04/2023 Telephone [facility] [address] [place] [address] Allyssa Mitchell PA-C [address] [place] [address] Allergies Active Allergy Reactions Criticality Noted Date [...] Dispensed Refills Start Date End Date Status SMA InformaticsTouch Verio w/Device KitIndications:Type 2 diabetes mellitus with [...] DIRECTED 100 Tablet 3 03/31/2023 Active Ipratropium [place] 0.03 % Nasal Solution (Atrovent)Indicatio ns:Chronic rhinitis Administer 2 Sprays into nostril in the morning and 2 Sprays before bedtime. 90 mL 3 04/01/2023 Active Sotalol HCl 80 MG Oral Tablet (Betapace)Indicatio ns:Paroxysmal atrial fibrillation ([facility]) Take 0.5 Tablets by mouth in the [...] bedtime. 90 Tablet 3 05/16/2023 Active Tiotropium [place]-Olodaterol 2.5-2.5 MCG/ACT Inhalation Aerosol Solution (Stiolto Respimat) [...] or Anxiety. 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 Brief chart review. Medications reviewed and admission orders approved/clarified. I have reviewed the patients controlled substance dispensing history in the Prescription Drug Monitoring Program in compliance with the [facility] regulations before prescribing a controlled substance. Last Tox Screen Results: No results found. However, due to the size of the patient record, not all encounters were searched.Please check Results Review for a complete set of results. Allyssa Mitchell PA-C documented in this encounter Plan of Treatment Upcoming Encounters Date Type Department Care Team (Late st Contact Info) Description 09/11/2023 3:30 PM EST Office Visit Cardiology, [facility] [address] [facility] [place] [address] Stephen Hewitt, [address] [place] [address] 09/15/2023 8:00 AM EST Appointment Cardiac Studies [facility] [address] [address] 09/18/2023 9:30 AM EST Office Visit Hematology/Oncology [address] [place] [address] Nereyda Metz CRNP 400 [facility] [place] [address] 10/14/2023 2:30 PM EST Office Visit Hematology/Oncology [address] [place] [address] Nereyda Metz CRNP 400 [facility] [place] [address] 10/24/2023 2:30 PM EST Office Visit Gynecology/Oncology, [place] [address] [place] [address] Vanessa Elena PA-C [address] [place] [address] 11/04/2023 11:00 AM EDT Office Visit [facility]ol[facility]ology [facility] [address] Cheri Castillo PA-C 132 [facility] [place] [address] 12/08/2023 2:20 PM EDT Office Visit Family Practice [address] [place] [address] 293 [facility] [place] [address] Florentin Calvo DO 293 [place] [address] 01/21/2024 2:40 PM EDT Office Visit Otolaryngology [facility] [address] [facility] [address] Cheri Castillo PA-C 132 [facility] [address] 02/17/2024 3:30 PM EDT Office Visit Nephrology, [facility] [address] [place] [address] ZemaMichelle churchill PA-C 200 [facility] [place] [address] 06/03/2024 2:15 PM EDT Office Visit Ophthalmology, [facility] 132 [facility] [place] [address] Wilbur Benavides, DO 21 [place] [address] 08/09/2024 1:00 PM EST Nurse Only Ancillary [address] [place] 293 [facility] [place] [address] College, Nurse Annual Wellness Visit [address] [facility] 293 [facility] [place], [place] [address] Health Maintenance Due Date Last Done Comments [...] Additional history exists CKD PHOS USE SMARTSET 20279 08/19/202407/26, 05/01/2022, 04/03/2022, Additional history exists CKD HGB USE SMARTSET 28416 08/20/202408/20, 08/20/2023, 08/19/2023, Additional history exists Depression [...] this encounter Medical Devices Implanted Type Area Boat Buffer Plastic Device Identifier Shelf Expiration Date Model / Serial / Lot Cath Thermodilution 6fr - [id number] Implanted:Qty: 1 on 01/24/2023 by Wilbur Rivera MD at [facility] [employer] [id number] 10/15/2024 [id number] / / [id number] Mirtaclip G4 - [id number] Implanted:Qty: 1 on 03/10/2023 at [facility] [employer] 11/19/2023 [id number] / / [id number] Device Watchman Flx 31mm - [id number] Implanted:Qty: 1 on 07/31/2023 by Wilbur Rivera MD at [facility] [employer] : INTRV CARD [id number] 12/02/2025 [id number] / / [id number] documented as of this encounter Advance Directives Documents on File Type Date Recorded 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 No Code Status History Code Status Date [...] [facility] Bright Barakat Adult Child Health Care Agen t (per Health Care Power of Delphi Programmer document) Care Teams Commanding Officer Garage Relationship Specialty Start Date End Date Florentin Calvo DO 293 [place] [address] PCP - General Internal Medicine 03/24/13 documented as of this encounter
--- OUTSIDE RECORDS SUMMARY | 2023-10-10 09:38 | External Medical Summary | Summary of Care ---
Author Name Unknown Organization [facility] Address [address] [place] [address] Phone [phone] Care Team Providers Care Motion Picture Critic Name Role Phone Florentin Calvo DO Primary Care Provider [phone] Reason for Visit * Reason Onset Date Comments Skilled Visit 09/08/2023 Encounter Details Date Type Department Care Team (Late st Contact Info) Description 09/08/2023 8:30 AM EST [facility] Visit [facility] [address] [place] [address] Allyssa Mitchell PA-C [address] [place] [address] Acute posthemorrhagic anemia*; Iron deficiency anemia due to chronic blood loss; Generalized weakness; Chronic kidney disease, stage 3b (HCC); Type 2 diabetes mellitus with polyneuropathy (HCC) Allergies Active Allergy Reactions Criticality Noted Date Comments Azithromycin Other (Please comment) 12/04/2021 QTC prolongation at [facility] Celecoxib Hives,Rash High 03/24/2013 Other [...] as of this encounter (statuses as of 09/08/2023) Medications Medication Sig Dispensed Refills Start Date [...] for Wheezing. 15 g 12 06/13/2022 Active AnamariaTouch Fatouflorinda In Vitro Strip (Glucose Blood) Test blood [...] DIRECTED 100 Tablet 3 03/31/2023 Active Ipratropium [place] 0.03 % Nasal Solution (Atrovent)Indicatio ns:Chronic rhinitis [...] bedtime. 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 Last Assessment & Plan: Now just using [...] as of this encounter (statuses as of 09/08/2023) Resolved Problems Problem Noted Date Diagnosed Date [...] as of this encounter (statuses as of 09/08/2023) Immunizations Name Administration Dates Next Due COVID-19 mRNA, LNP-s, No Pre serve, 2-Dose Series (Moderna) 06/23/2021,10/25/2020,09/28/2020 COVID-19, LNP-s, No Preserve , Larry-sucrose, Ages 12+ (Pfizer) 04/09/2022 COVID-19, MRNA-LNP, 23-24, P F, 30 MCG/0.3 mL, 12 YRS AND ABOVE, IM ([facility]) 06/09/2023 Covid-19, Mrna, Lnp-s, Pf, B [...] Reading Time Taken Comments Blood Pressure 116/64 09/08/2023 3:39 PM EST Pulse 70 09/08/2023 3:39 PM EST Temperature 36.9 C (98.5 F) 09/08/2023 3:39 PM ES T Respiratory Rate 18 09/08/2023 3:39 PM EST Oxygen Saturation 97% 09/08/2023 3:39 PM EST room air Inhaled Oxygen Concentration - - Weight - - Height - - Body Mass Index - - documented in this encounter Functional Status Functional Status Response Date of Assess ment Are you deaf or do you have serious difficulty hearing? No-[place] can hear w/ hearing aid 03/07/2023 [...] Progress Notes * Allyssa Mitchell PA-C - 09/08/2023 8:30 AM EST Name: Inga Barakat Date of : 1940 This note pertains to care provided at [facility]. Please see facility record for original note. This note is not to be edited or addended in [employer]. Editing or addending needs to occur in the facility's medical record. Chief Complaint Patient presents with Skilled Visit TRANSITION EVENT: Type: Skilled visit Date: September 08 Code Status: Full Code SUBJECTIVE: Inga Barakat is a 83 year old female HPI: short-term rehab patient recently hospitalized with weakness, falls, profound anemia now s/p multiple iron/PRBC infusions. She reports she is feeling well today, denies dyspnea, chest pain, cough, fever, chills, abdominal pain ,nausea, vomiting, diarrhea, headache, dizziness. Hgb remains low but stable at 9.5, renal function currently near baseline. Pt on telephone with daughter, Kayla, during a portion of the visit. Lab results reviewed with both, per request of patient. Neither with any questions at the present time. She does c/o bilateral lower legs and foot pain, chronic and unchanged, she reports she feels like she is always walking on gravel. 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 ([facility]) E11.319 Pure hypercholesterolemia E78.00 Aneurysm of left carotid artery ([facility]) I72.0 Aortic atherosclerosis ([facility]) I70.0 Chronic kidney disease, stage 3b ([facility]) N18.32 PVD (peripheral vascular disease) ([facility]) I73.9 Chronic diastolic CHF (congestive heart failure) ([facility]) I50.32 Type 2 diabetes mellitus with stage 3b chronic kidney disease, without long-term current use of insulin ([facility]) E11.22, N18.32 Cardiac pacemaker in situ Z95.0 [...] disease, or unspecified chronic kidney disease I12.9 Review of patient's allergies indicates: Allergen Reactions [...] Azithromycin Other (Please comment) QTC prolongation at [facility] Nickel Swelling Other reaction(s): Unknown Medications: Pt's current medication list is maintained at [facility] and was reviewed at this visit. Review of Systems: Per HPI OBJECTIVE: BP 116/64 | Pulse 70 | Temp 36.9 C (98.5 F) | Resp 18 | SpO2 97% Comment: room air General: alert, healthy, and no distress, sitting up in bed, talkative, well-appearing Head: Normocephalic Eye Exam: extraocular movements intact, conjunctiva are pink and non-injected, sclera clear [...] oriented x 3 with fluent speech Skin: pale, warm, dry Results for orders placed or [...] results can be found in Results Review. Lab results reviewed with patient and with her daughter, Kayla, via phone during visit ASSESSMENT/PLAN: [facility] chart (outside system) reviewed for vital signs, nursing notes, CODE STATUS, and most up to date medication list Discussed management with other clinician during the visit (facility RN) Acute posthemorrhagic anemia (Primary) Iron deficiency anemia due to chronic blood loss Stable at this time Repeat CBC Friday Results reviewed with patient Follow up with nephrology as planned Generalized weakness Continue PT and OT with goal of return home Chronic kidney disease, stage 3b (HCC) BMP Friday Follow up with nephro as planned Type 2 diabetes mellitus with polyneuropathy (HCC) DM is diet controlled Trial biofreeze for pain control Biofreeze External Gel 4 % (Menthol (Topical Analgesic)) Apply to bilateral feet and legs topicallythree times a day for neuropathy Follow up: 1-2 days and as needed I spent a total of 32 minutes coordinating, documenting, and providing care for this patient excluding time spent in the performance of separately billed services or time spent by another provider/QHP. Electronically signed by: Allyssa Mitchell PA-C documented in this encounter Plan of Treatment Upcoming Encounters Date Type Department Care Team (Late st Contact Info) Description 09/11/2023 3:30 PM EST Office Visit Cardiology, [facility] [address] [place] [address] Stephen Hewitt, 132 [place] [address] 09/15/2023 8:00 AM EST Appointment Cardiac Studies [address] [place] [address] 09/18/2023 9:30 AM EST Office Visit Hematology/Oncology [facility] 200 [facility] [place] [address] Nereyda Metz CRNP 400 [facility] [address] 10/14/2023 2:30 PM EST Office Visit Hematology/Oncology [facility] 200 [facility] [place] [address] Nereyda Metz CRNP 400 [place] [address] 10/24/2023 2:30 PM EST Office Visit Gynecology/Oncology, [address] [address] Vanessa Elena PA-C [facility] [place] [address] 11/04/2023 11:00 AM EDT Office Visit Otolaryngology [facility] [address] [place] [address] Cheri Castillo PA-C [facility] [place] [address] 12/08/2023 2:20 PM EDT Office Visit Family Practice [address] [place] [address] 293 [facility] [place] [address] Florentin Calvo, 293 [place] [address] 01/21/2024 2:40 PM EDT Office Visit Otolaryngology [facility] [address] [place] [address] Cheri Castillo PA-C [address] [place] [address] 02/17/2024 3:30 PM EDT Office Visit Nephrology, [facility] [address] [place], [place] [address] Michelle Ivy PA-C 200 [facility] [place] [address] 06/03/2024 2:15 PM EDT Office Visit Ophthalmology, [facility] 132 [facility] [place] [address] Wilbur Benavides, DO [address] [place] [address] 08/09/2024 1:00 PM EST Nurse Only Ancillary 65 [facility] 293 [facility], [place] [address] College, Nurse Annual Wellness Visit 65 [facility] 293 [facility], [place] [address] Health Maintenance Due Date Last Done Comments [...] Additional history exists CKD PHOS USE SMARTSET 13209 08/19/202407/26, 05/01/2022, 04/03/2022, Additional history exists Depression Screening 08/21/2024 08/21/2023 CKD HGB USE SMARTSET 99432 09/08/202409/08, 08/20/2023, 08/20/2023, Additional history exists DXA [...] this encounter Medical Devices Implanted Type Area Rampman Device Identifier Shelf Expiration Date Model / Serial / Lot Cath Thermodilution 6fr - [id number] Implanted:Qty: 1 on 01/24/2023 by Wilbur Rivera MD at [facility] [employer] [id number] 10/15/2024 [id number] / / [id number] Mirtaclip G4 - [id number] Implanted:Qty: 1 on 03/10/2023 at [facility] [employer] 11/19/2023 [id number] / / [id number] Device Watchman Flx 31mm - [id number] Implanted:Qty: 1 on 07/31/2023 by Wilbur Rivera MD at [facility] [employer] : INTRV CARD [id number] 12/02/2025 [id number] / / [id number] documented as of this encounter Visit Diagnoses Diagnosis Acute posthemorrhagic anemia- Primary Iron deficiency anemia due to chronic blood loss Iron deficiency anemia secondary to blood loss (chronic) Generalized weakness Other malaise and fatigue Chronic kidney disease, stage 3b (HCC) Type 2 diabetes mellitus with polyneuropathy (HCC) Type II or unspecified type diabetes mellitus with neurological manifestations, not stated as uncontrolled documented in this encounter Advance Directives Documents on File Type Date Recorded Patient Legal Instructor Expl anation Advance Directives and Living Will 11/29/2022 ADVANCE DIRECTIVE / LIVING WILL Power of Stapler Hand 11/29/2022 POWER OF A TTORNEY Advance Directives and Living Will 10/24/2014 ADVANCE DIRECTIVE / LIVING WILL Power of Stapler Hand 10/24/2014 POWER OF A TTORNEY Latest [...] the patient have Health Care Power of Stapler Hand? No Code Status History Code Status [...] Agen t (per Health Care Power of Stapler Hand document) Care Teams Motion Picture Critic Relationship Specialty Start Date End Date Florentin Calvo DO [address] [facility] [place] [address] PCP - General Internal Medicine 03/24/13 documented as of this encounter
--- OUTSIDE RECORDS SUMMARY | 2023-10-10 09:38 | External Medical Summary | Summary of Care ---
Author Name Unknown Organization [facility] Address [address] [place] [address] Phone [phone] Care Team Providers Care Bulb Tester Name Role Phone Florentin Calvo DO Primary Care Provider [phone] Encounter Details Date Type Department Care Team (Late st Contact Info) Description 09/04/2023 Referral Triage Care Coordination and Integration [address] [place] [address] Nely Eaton, RADHA [address], [place] [id number] Allergies Active Allergy Reactions Criticality Noted Date [...] Dispensed Refills Start Date End Date Status SpinUtopiaTouch Verio w/Device KitIndications:Type 2 diabetes mellitus with [...] DIRECTED 100 Tablet 3 03/31/2023 Active Ipratropium [place] 0.03 % Nasal Solution (Atrovent)Indicatio ns:Chronic rhinitis Administer 2 Sprays into nostril in the morning and 2 Sprays before bedtime. 90 mL 3 04/01/2023 Active Sotalol HCl 80 MG Oral Tablet (Betapace)Indicatio ns:Paroxysmal atrial fibrillation ([facility]) Take 0.5 Tablets by mouth in the [...] bedtime. 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 No-[place] can hear w/ hearing aid 03/07/2023 Are [...] 09/11/2023 3:30 PM EST Office Visit Cardiology, [facility] [address] [place] [address] Stephen Hewitt DO [address] [place] [address] 09/15/2023 8:00 AM EST Appointment Cardiac Studies [facility], [address] [address] 09/18/2023 9:30 AM EST Office Visit Hematology/Oncology [facility] [address] [facility] [place] [address] Nereyda Metz CRNP 400 [place] [address] 10/14/2023 2:30 PM EST Office Visit Hematology/Oncology [facility] [address] [facility] [place] [address] Nereyda Metz CRNP 400 [place] [address] 10/24/2023 2:30 PM EST Office Visit Gynecology/Oncology, [place] [address] [place] [address] Vanessa Elena PA-C [address] [place] [address] 11/04/2023 11:00 AM EDT Office Visit Otolaryngology [facility] 132 [place] [address] Cheri Castillo PA-C 132 [place] [address] 12/08/2023 2:20 PM EDT Office Visit Family Practice [address] [place] [address] 293 [place] [address] Florentin Calvo, DO 293 [place] [address] 01/21/2024 2:40 PM EDT Office Visit Otolaryngology [facility] 132 [facility] [place] [address] Cheri Castillo PA-C 132 [facility] [place] [address] 02/17/2024 3:30 PM EDT Office Visit Nephrology, [facility] [address] [facility] [address] ZemaMichelle churchill PA-C [address] [facility] [address] 06/03/2024 2:15 PM EDT Office Visit Ophthalmology, [facility] 132 [facility] [address] Wilbur Benavides, DO 21 [facility] [place] [address] 08/09/2024 1:00 PM EST Nurse Only Ancillary 65 [facility] 293 [facility], [place] [address] College, Nurse Annual Wellness Visit [address], [place] [address] Health Maintenance Due Date Last Done Comments [...] Additional history exists CKD PHOS USE SMARTSET 66586 08/19/202407/26, 05/01/2022, 04/03/2022, Additional history exists CKD HGB USE SMARTSET 46996 08/20/202408/20, 08/20/2023, 08/19/2023, Additional history exists Depression [...] this encounter Medical Devices Implanted Type Area Brazer Controlled Atmospheric Furnace Device Identifier Shelf Expiration Date Model / Serial / Lot Cath Thermodilution 6fr - [id number] Implanted:Qty: 1 on 01/24/2023 by Wilbur Rivera MD at [facility] [employer] [id number] 10/15/2024 [id number] / / [id number] Mirtaclip G4 - [id number] Implanted:Qty: 1 on 03/10/2023 at [facility] [place] [employer] 11/19/2023 [id number] / / [id number] Device Watchman Flx 31mm - [id number] Implanted:Qty: 1 on 07/31/2023 by Wilbur Rivera MD [place] [facility] [employer] : INTRV CARD [id number] 12/02/2025 [id number] documented as of this encounter Advance Directives Documents on File Type Date Recorded 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 No Code Status History Code Status Date [...] t (per Health Care Power of Sales Counselor document) Care Teams Bulb Tester Relationship Specialty Start Date End Date Florentin Calvo DO 293 [place] [address] PCP - General Internal Medicine 03/24/13 documented as of this encounter
--- OUTSIDE RECORDS SUMMARY | 2023-10-10 09:38 | External Medical Summary ---
Author Name Unknown Address Unknown Organization [id number] [place] [id number] Laboratory Report Ordering Provider Test Date Status BETHEL OLSON 09/08/2023 05:26:00 Final Observation Date Value Abnormality Reference (Units ) Status WBC, Total 09/08/2023 05:26:00 7.53 4.00-10.8 0 (K/uL) Final RBC 09/08/2023 05:26:00 3.09 3.85-5.15 (M/uL) Final Hemoglobin 09/08/2023 05:26:00 9.5 Below low normal 12 .0-15.3 (g/dL) Final HCT 09/08/2023 05:26:00 29.3 Below low normal 36. 0-45.2 (%) Final MCV 09/08/2023 05:26:00 94.8 81.5-97.5 (fL) Final MCH 09/08/2023 05:26:00 30.7 27.0-34.0 (pg) Final MCHC 09/08/2023 05:26:00 32.4 32.0-36.0 (g/dL) Final RDW 09/08/2023 05:26:00 15.7 11.5-15.5 (%) Final Platelets 09/08/2023 05:26:00 189 140-400 (K /uL) Final MPV 09/08/2023 05:26:00 10.6 6.6-11.1 ( fL) Final Performing Location [facility] [place] [address]
--- OUTSIDE RECORDS SUMMARY | 2023-10-10 09:39 | External Medical Summary | Summary of Care ---
Author Name Unknown Organization [facility] Address [address] [place] [address] Phone [phone] Care Team Providers Care Head Doffer Name Role Phone Florentin Calvo DO Primary Care Provider [phone] Reason for Visit * Reason Onset Date Comments Appointment 09/01/2023 Encounter Details Date Type Department Care Team (Late st Contact Info) Description 09/01/2023 Telephone Hematology/Oncology Treatment, [place] [address] [place] [address] Nereyda Metz CRNP [address] [place] [address] Appointment Allergies Active Allergy Reactions Criticality Noted [...] as of this encounter (statuses as of 09/01/2023) Medications Medication Sig Dispensed Refills Start Date End Date Status [email or web address] w/Device KitIndications:Type 2 diabetes mellitus with hemoglobin [...] DIRECTED 100 Tablet 3 03/31/2023 Active Ipratropium [place] 0.03 % Nasal Solution (Atrovent)Indicatio ns:Chronic rhinitis [...] bedtime. 90 Tablet 3 05/16/2023 Active Tiotropium [place]-Olodaterol 2.5-2.5 MCG/ACT Inhalation Aerosol Solution (Stiolto Respimat) [...] as of this encounter (statuses as of 09/01/2023) Active Problems Problem Noted Date Diagnosed Date Hypertensive chronic kidney disease with stage 1 through stage 4 chronic kidney disease, or unspecified chronic kidney disease 08/25/2023 Presence of Watchman left atrial appendage closu re device 07/31/2023 S/P mitral valve clip implantation 03/06/2023 Atherosclerosis of teller 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 02/13/2023 [...] interval not displayed. 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 Last Assessment & Plan: Now just using [...] as of this encounter (statuses as of 09/01/2023) Resolved Problems Problem Noted Date Diagnosed Date [...] as of this encounter (statuses as of 09/01/2023) Immunizations Name Administration Dates Next Due COVID-19 mRNA, LNP-s, No Pre serve, 2-Dose Series (Moderna) 06/23/2021,10/25/2020,09/28/2020 COVID-19, LNP-s, No Preserve , Larry-sucrose, Ages 12+ ([employer]) 04/09/2022 COVID-19, MRNA-LNP, 23-24, P F, 30 MCG/0.3 mL, 12 YRS AND ABOVE, IM [facility] [facility] 06/09/2023 Covid-19, Mrna, Lnp-s, Pf, B ivalent, 30 Mcg, IM, 12 yrs and above ([employer]) 09/10/2022 HEP A - Hepatitis A [...] or do you have serious difficulty hearing? No-[place] can hear w/ hearing aid 03/07/2023 [...] encounter Miscellaneous Notes * Telephone Encounter - Scott Chavarria MED ASSIST - 09/01/2023 3:10 PM EST Spoke to son, scheduled 09/18/23. Offered sooner appt, but son declined due to patient being in rehab center. * Telephone Encounter - Sheela Becerra RN - 09/01/2023 2:03 PM EST Received message from Vince at [facility]. Patient awaiting a bed at [facility]. Patient was given IV infusions/ blood transfusions during hospitalization but it is felt that her anemia should be further investigated (per hospitalist note, recommend ruling out hemolysis given recent mitral clip placement a few months ago, rule out MDS. Scheduling: please follow up with patient to give her sooner appt with Nereyda or Dr Hood- within 1-2 weeks. Thanks! documented in this encounter Plan of Treatment Upcoming Encounters Date Type Department Care Team (Late st Contact Info) Description 09/11/2023 3:30 PM EST Office Visit Cardiology, [facility] [address] [place] [address] Stephen Hewitt, [address] [place] [address] 09/15/2023 8:00 AM EST Appointment Cardiac Studies [facility], [address] [place] [id number] 09/18/2023 9:30 AM EST Office Visit Hematology[facility]Oncology [facility] [address] [facility] [address] [facility] [place] [address] 10/14/2023 2:30 PM EST Office Visit Hematology/Oncology [facility] [address] [facility] [place] [address] Nereyda Metz CRNP [address] [facility] [place] [address] 10/24/2023 2:30 PM EST Office Visit Gynecology/Oncology, [place] [address] [place] [address] Vanessa Elena PA-C [address] [place] [address] 11/04/2023 11:00 AM EDT Office Visit Otolaryngology [facility] [address] [facility] [place] [address] Cheri Castillo PA-C [address] [facility] [address] 12/08/2023 2:20 PM EDT Office Visit Family Practice [address] [place] [address] [address] [place] [address] Florentin Calvo, [address] [place] [address] 01/21/2024 2:40 PM EDT Office Visit Otolaryngology [facility] [address] [place] [address] Cheri Castillo PA-C [address] [facility] [place] [address] 02/17/2024 3:30 PM EDT Office Visit Nephrology, [facility] [address] [place] [address] Michelle Ivy PA-C [address] [facility] [place] [address] 06/03/2024 2:15 PM EDT Office Visit Ophthalmology, [facility] [address] [place] [address] Wilbur Benavides, DO [address] [place] [address] 08/09/2024 1:00 PM EST Nurse Only Ancillary [address] [facility] [address] [facility], [place] [address] College, Nurse Annual Wellness Visit [address] [facility] [address] [facility], [place] [address] Health Maintenance Due Date Last Done Comments [...] Additional history exists CKD PHOS USE SMARTSET 74553 08/19/202407/26, 05/01/2022, 04/03/2022, Additional history exists CKD HGB USE SMARTSET 16745 08/20/202408/20, 08/20/2023, 08/19/2023, Additional history exists Depression [...] encounter Medical Devices Implanted Type Area Supervisor Dumping Device Identifier Shelf Expiration Date Model / Serial / Lot Cath Thermodilution 6fr - [id number] Implanted:Qty: 1 on 01/24/2023 by Wilbur Rivera MD at [facility] [employer] [id number] 10/15/2024 [id number] / / [id number] Mirtaclip G4 - [id number] Implanted:Qty: 1 on 03/10/2023 at [facility] [employer] 11/19/2023 [id number] / / [id number] Device Watchman Flx 31mm - [id number] Implanted:Qty: 1 on 07/31/2023 by Wilbur Rivera MD at [facility] [employer] : INTRV CARD [id number] 12/02/2025 [id number] documented as of this encounter Advance Directives Documents on File Type Date Recorded Patient Rat Culturist Expl anation Advance Directives and Living Will 11/29/2022 ADVANCE DIRECTIVE / LIVING WILL Power of Bicycle Racer 11/29/2022 POWER OF A TTORNEY Advance Directives and Living Will 10/24/2014 ADVANCE DIRECTIVE / LIVING WILL Power of Bicycle Racer 10/24/2014 POWER OF A TTORNEY Latest Code [...] the patient have Health Care Power of Bicycle Racer? No Code Status History Code Status Date [...] Agents on File Name Relationship Healthcare Agent [facility] p Communication [facility] Adult Child Health Care Agen t (per Health Care Power of Bicycle Racer document) Care Teams Head Doffer Relationship Specialty Start Date End Date Florentin Calvo DO [address] [facility] [place] [address] PCP - General Internal Medicine 03/24/13 documented as of this encounter
--- OUTSIDE RECORDS SUMMARY | 2023-10-10 09:39 | External Medical Summary | Summary of Care ---
Author Name Unknown Organization [facility] Address [address] [place] [address] Phone [phone] Care Team Providers Care Sustainable Design Coordinator Name Role Phone Grey Calvo DO Primary Care Provider [phone] Reason for Visit * Reason Comments Chronic Kidney Disease (CKD) Encounter Details Date Type Department Care Team (Latest Contact Info) Description 08/13/2023 8:40 AM EST Office Visit Nephrology, Jerri Zamora [address] [place] [address] Veto Corona MD [address] [place] [address] Stage 3b chronic kidney disease (HCC)*; HTN, goal below 130/80; Iron deficiency anemia due to chronic blood loss; Hyperuricemia; Secondary hyperparathyroidism, renal (HCC); Hypervolemia, unspecified hypervolemia type; Elevated serum immunoglobulin free light chains; Type 2 diabetes mellitus with stage 3b chronic kidney disease, without long-term current use of insulin (HCC); Hypertensive chronic kidney disease with stage 1 through stage 4 chronic kidney disease, or unspecified chronic kidney disease; Pulmonary hypertension (HCC) Allergies Active Allergy Reactions Criticality Noted Date Comments Azithromycin Other (Please comment) 12/04/2021 QTC prolongation at [facility] Celecoxib Hives,Rash High 03/24/2013 Other [...] as of this encounter (statuses as of 08/25/2023) Medications Medication Sig Dispensed Refills Start Date End Date Status Passport SystemsTouch Verio w/Device KitIndications:Typ e 2 diabetes mellitus [...] Oral Tablet (Lipitor)Indicatio ns:PVD (peripheral vascular disease) ([facility]),Type 2 diabetes mellitus with stage 3a chronic kidney disease and hypertension ([facility]) TAKE ONE TABLET BY MOUTH EVERY DAY DIRECTED 100 Tablet 3 03/31/2023 Active Ipratropium [place] 0.03 % Nasal Solution (Atrovent)Indicati ons:Chronic rhinitis [...] bedtime. 90 Tablet 3 05/16/2023 Active Tiotropium [place]-Olodaterol 2.5-2.5 MCG/ACT Inhalation Aerosol Solution (Stiolto Respimat) [...] Anxiety. 30 Tablet 0 08/07/2023 Active Torsemide 20 MG Oral Tablet (Demadex) [...] as of this encounter (statuses as of 08/25/2023) Active Problems Problem Noted Date Diagnosed Date Hypertensive chronic kidney disease with stage 1 through stage 4 chronic kidney disease, or unspecified chronic kidney disease 08/25/2023 Presence of Watchman left atrial appendage closu re device 07/31/2023 S/P mitral valve clip implantation 03/06/2023 Atherosclerosis of [place] 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 02/13/2023 Last Assessment & Plan: Continue statin, sotalol. 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 Last Assessment & Plan: Now just using [...] as of this encounter (statuses as of 08/25/2023) Resolved Problems Problem Noted Date Diagnosed Date [...] as of this encounter (statuses as of 08/25/2023) Immunizations Name Administration Dates Next Due COVID-19 mRNA, LNP-s, No Pre serve, 2-Dose Series (Moderna) 06/23/2021,10/25/2020,09/28/2020 COVID-19, LNP-s, No Preserve , Larry-sucrose, Ages 12+ ([employer]) 04/09/2022 COVID-19, MRNA-LNP, 23-24, P F, 30 MCG/0.3 mL, 12 YRS AND ABOVE, IM ([facility]) 06/09/2023 Covid-19, Mrna, Lnp-s, Pf, B ivalent, 30 Mcg, IM, 12 yrs and above ([employer]) 09/10/2022 HEP A - Hepatitis A (Adult [...] Sign Reading Time Taken Comments Blood Pressure 128/55 08/13/2023 8:45 AM EST Pulse 64 08/13/2023 8:45 AM EST Temperature 35.6 C (96 F) 08/13/2023 8:45 AM EST Respiratory Rate 18 08/13/2023 8:45 AM EST Oxygen Saturation 96% 08/13/2023 8:45 AM EST Inhaled Oxygen Concentration - - Weight 72.6 kg (160 lb) 08/13/2023 8:45 AM EST Height - - Body Mass [...] * Patient Instructions* Veto Corona MD - 08/13/2023 9:18 AM EST -2 days weekly take a second 10 mg torsemide (1/2 of a 20 mg tablet) dose at least 4 hours or more after first dose -no change to other medications -check hemoglobin today -keep weighing yourself daily -recheck labs in the week before you see Dr Hewitt -avoid medicines like aleve, advil, ibuprofen, aspirin more than 81 mg daily and other NSAIDS whichare not good for kidney patients. Take only tylenol (acetaminophen) up to 2000 mg daily as needed for pain or as directed by your primary care provider. documented in this encounter Progress Notes * Veto Corona MD - 08/13/2023 9:00 AM EST NEPHROLOGY CLINIC NOTE Nephrology, Jerri Sera [address] [place] [address] 08/13/2023, 9:01 AM Patient Name: Inga Barakat Past Medical History: Diagnosis Date Anemia 07/26/2022 Asthma 1985 Asthma, moderate persistent 03/24/2013 Atrial fibrillation ([facility]) 09/09/2014 Cardiac pacemaker in situ 08/14/2022 Depression 03/24/2013 DM type 2, goal A1c below 7 03/24/2013 Endometrial cancer ([facility]) History of endometrial cancer 09/18/2022 HTN, goal below 140/80 03/24/2013 Hypothyroidism 03/24/2013 Irregular heart beat 07/2012 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 Obstructive sleep apnea of adult 09/09/2014 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 Pleural effusion Pulmonary arterial hypertension ([facility]) Pure hypercholesterolemia 07/02/2021 PVD (peripheral vascular disease) ([facility]) 05/15/2022 Retinopathy Secondary hyperparathyroidism, renal ([facility]) 12/17/2018 Severe mitral valve regurgitation 10/30/2022 Severe tricuspid regurgitation 11/18/2022 Spinal stenosis 07/2002 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 claudication 03/24/2013 Vertigo 03/24/2013 Patient Active Problem List Diagnosis Code Type 2 diabetes mellitus with hemoglobin A1c goal of less than 7.0% ([facility]) E11.9 Vertigo R42 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 claudication M48.061 Hypothyroidism E03.9 Displacement of cervical intervertebral disc without myelopathy M50.20 Meniere's disease H81.09 Paroxysmal atrial fibrillation ([facility]) I48.0 Obstructive sleep apnea of adult G47.33 Tremor R25.1 Iron deficiency anemia D50.9 Angiodysplasia of colon with hemorrhage K55.21 Acquired renal cyst N28.1 Controlled substance agreement signed Z79.899 Type 2 diabetes mellitus with polyneuropathy (HCC) E11.42 Secondary hyperparathyroidism, renal (HCC) N25.81 Pulmonary hypertension (HCC) I27.20 Current moderate episode of major depressive disorder without prior episode ([facility]) F32.1 Moderate persistent asthma without complication J45.40 Gastro-esophageal reflux disease without esophagitis K21.9 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 (HCC) E11.319 Pure hypercholesterolemia E78.00 Aneurysm of left carotid artery ([facility]) I72.0 Aortic atherosclerosis ([facility]) I70.0 Chronic kidney disease, stage 3b ([facility]) N18.32 PVD (peripheral vascular disease) ([facility]) I73.9 Chronic diastolic CHF (congestive heart failure) ([facility]) I50.32 Type 2 diabetes mellitus with stage 3b chronic kidney disease, without long-term current use of insulin ([facility]) E11.22, N18.32 Cardiac pacemaker in situ Z95.0 History of endometrial cancer Z85.42 Normocytic anemia D64.9 Primary osteoarthritis of right knee M17.11 Severe tricuspid regurgitation I07.1 History of TIA (transient ischemic attack) Z86.73 Atherosclerosis of [place] coronary artery without angina pectoris I25.10 S/P mitral valve clip implantation Z98.890, Z95.818 Presence of Watchman left atrial appendage closure device Z95.818 BACKGROUND: 82 year old female presents for [...] negative and no urology f/u needed. Hospitzalized [facility] February 2022 for anemia x 1 wk > (creat from 1 > 1.4); her OP creat has run 1.3-1.4. S/p cardiac pacer 07/2022; also diagnosed w/ HFpEF 07/2022 and started on torsemide. Marked improvement in breathing which had severely limited activity spring /fall 2022 >> after mitrclip cardiac procedure Had evaluation with imaging for elevated PTH. No evidence of adenoma found . She has been seen by ENT for voice tremors and dysphonia, not specifically for PTH issues. For p.r.n. follow-up with ENT. Never user of nsaids. No personal hx of stones. No FH of renal dz except brother w/ kidney stones. 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 TODAY 08/13/2023: Had watchman past 2 wks. Edema is ok depending on time of day. No obvious bleeding. Hgb w/ slight down trend after procedure Overall feels steady; home wts stable at about 160 lb ROS General: No weakness, No fevers, sweats, or chills, No change in weight. Head: No significant headache Eyes: No recent significant change in vision. Respiratory: No cough; breathing as above Cardiovascular:No chest pain; denies palpitations, and No syncope Gastrointestinal: No nausea, vomiting, diarrhea No hematemesis, No blood in stools No abdominal pain Urinary: No dysuria, No hematuria. No flank pain > some urge incontinence and some issues starting stream Musculoskeletal: No new muscle pains or cramps; ongoing LE edema eli RLE >> still w/ pain thoracic spine, hunches w/ pain w/ this relieved w/ heating ce Skin: No itching Neuro > stable chronic BL foot paresthesias; ongoing R knee/leg weakness No orthostatic or presyncopal sx; no falls Current Outpatient Medications Medication Sig Dispense Refill [...] MOUTH EVERY DAY DIRECTED 100Tablet 3 Ipratropium [place] 0.03 % Nasal Solution (Atrovent) Administer 2 [...] mouth at bedtime. 90 Tablet 3 Tiotropium [place]-Olodaterol 2.5-2.5 MCG/ACT Inhalation Aerosol Solution (Stiolto Respimat) [...] for Sleep or Anxiety. 30 Tablet 0 [employer] Verio w/Device Kit Use up to 1 times a day. E11.9 1 Kit 0 Tapomatuch Attendifyio In Vitro Strip (Glucose Blood) Test blood sugars up to 2 times a day E11.9 200 Strip3 Doxycycline Hyclate 100 MG Oral Tablet Take 1 Tablet by mouth in the morning and 1 Tablet before bedtime. Torsemide 10 MG Oral Tablet (Demadex) Take 1 Tablet by mouth in the morning. 100 Tablet 3 Current Facility-Administered Medications Medication Dose Route Frequency Provider Last Rate Last Admin Albuterol Sulfate (Proventil) (5 MG/ML) 0.5% *conc* inhalation solution 2.5 mg 2.5 mg Nebulizer PRVeronique Smiley CRNP Albuterol Sulfate (Proventil) (2.5 MG/3ML) 0.083% inhalation solution 2.5 mg 2.5 mg Nebulizer PRN Veronique De CRNP 2.5 mg at 10/31/22 1441 Review [...] Azithromycin Other (Please comment) QTC prolongation at [facility] Nickel Swelling Other reaction(s): Unknown PHYSICAL EXAMINATION: BP Readings from Last 6 Encounters: 08/21/23 116/64 08/19/23 122/60 08/13/23 128/55 08/01/23 108/60 07/31/23 105/45 07/02/23 114/64 Wt Readings from Last 6 Encounters: 08/21/23 73.2 kg (161 lb 6.4 oz) 08/19/23 72.9 kg (160 lb 11.2 oz) 08/13/23 72.6 kg (160 lb) 08/01/23 72.6 kg (160 lb) 07/31/23 72.6 kg (160 lb) 07/23/23 71.7 kg (158 lb) Pulse Readings from Last 6 Encounters: 08/21/23 64 08/19/23 98 08/13/23 64 08/01/23 64 07/31/23 56 07/02/23 70 NAD, oriented x 3, ambulatory w/ walker Normocephalic, atraumatic, eomi nonicteric sclerae MMM Supple neck RRR w/o m/g/r; trace BL ankle edema Bibasilar crackles else clear NT abd, +BS, soft No cyanosis or clubbing No rash BLUE eli RUE tremor, focal or global weakness; fluent speech, excellent historian LABS: Recent Labs Units 08/21/23 1528 08/20/23 1138 08/19/23 1052 08/13/23 0937 SODIUM - [facility] mmol/L 138 138 140 139 POTASSIUM - [facility] mmol/L 4.8 4.9 5.5* 4.8 CHLORIDE - [facility] mmol/L 102 100 103 103 CO2 - [facility] mmol/L 23 24 24 25 BUN - [facility] mg/dL 89* 75* 70* 57* CREATININE - [facility] mg/dL 2.4* 2.5* 2.5* 1.9* ESTIMATED GLOMERULAR FILTRATION RATE - [facility] mL/min 19* 18* 19* 27* Recent Labs Units 08/20/23 1138 08/19/23 1052 08/13/23 0937 07/31/23 1520 07/31/23 0627 07/25/23 1322 07/24/23 1416 07/03/23 1225 04/01/23 1429 03/14/23 1053 HGB - [facility] g/dL 9.6* 9.5* 9.3* 9.8* < > -- < > 11.4* < > 11.2* FERRITIN - [facility] ng/mL -- 408* -- -- -- 403* -- 471* -- 441* TRANSFERRIN SATURATION PERCENT - [facility] % -- 15 -- -- -- 31 -- 38 -- 17 < > = values in this interval not displayed. Recent Labs Units 08/21/23 1528 08/20/23 1138 08/19/23 1052 08/13/23 0937 07/31/23 0627 05/09/23 1312 06/12/22 1054 05/01/22 0839 04/03/22 0959 CALCIUM - [facility] mg/dL 9.4 9.7 9.4 9.5 < > 9.9 < > 9.3 10.0 PHOSPHORUS - [facility] mg/dL -- -- 4.5 -- -- -- -- 3.9 4.3 25-HYDROXY VITAMIN D - [facility] ng/mL -- -- -- -- -- 55 -- -- 55 PTH - [facility] pg/mL -- -- -- -- -- 72* -- 77* 65 < > = values in this interval not displayed. Recent Labs Units 08/15/23 0000 02/21/23 1231 08/27/22 1609 04/03/22 0959 HEMOGLOBIN A1C - [facility] % -- 6.5* 6.2* 5.8* HEMOGLOBIN, [id number] LAB 6.8* -- -- -- Recent Labs Units 02/21/23 1233 05/01/22 0839 10/26/21 1439 ALBUMIN / CREATININE RATIO, URINE - [facility] mg/g Creat 25 <16 29 Recent Labs Units 12/30/22 1657 05/01/22 0839 CLARITY, URINE - [facility] Clear Clear GLUCOSE, URINE - [facility] mg/dL 250* Negative BILIRUBIN, URINE - [facility] Negative Negative KETONE, URINE - [facility] mg/dL Negative Negative SPECIFIC GRAVITY, URINE - [facility] 1.008 1.010 BLOOD, URINE - [facility] Negative Trace* PH, URINE - [facility] Units 6.5 6.0 PROTEIN, URINE - [facility] mg/dL Negative Negative UROBILINOGEN, URINE - [facility] mg/dL Normal 0.2 NITRITE, URINE - [facility] Negative Negative ESTERASE, URINE - [facility] Trace* Large* BACTERIA, URINE - [facility] /HPF 0-25 26-50* WBC, URINE - [facility] /HPF 0-2 10-19* RBC, URINE - [facility] /HPF 0-2 3-5* ASSESSMENT AND PLAN: Stage 3b chronic kidney disease (HCC) (Primary) - BASIC METABOLIC PANEL; Future; Expected date: 08/20/2023 HTN, goal below 130/80 Iron deficiency anemia due to chronic blood loss - HGB; Future; Expected date: 08/13/2023 Hyperuricemia Secondary hyperparathyroidism, renal (HCC) Hypervolemia, unspecified hypervolemia type Elevated serum immunoglobulin free light chains Follow Up: Return in about 6 months (around 02/12/2024) for clinic visit w/ DORA, clinic visit w/ . | For: clinic visit w/ [facility], clinic visit w/ | Check-out note: Waitlist To lab CKD 3B stable w/ acceptable chemistries and no albuminruia -not on ye/arb d/t recurrent TIFFANY -f/u labs Aug 2023 Dypsneic >> -r/o recurrent anemia -up torsemide as below -no need currently for hospital eval but will monitor closely Allopurinol if able Patient Instructions -2 days weekly take a second 10 mg torsemide (1/2 of a 20 mg tablet) dose at least 4 hours or more after first dose -no change to other medications -check hemoglobin today -keep weighing yourself daily -recheck labs in the week before you see Dr Hewitt -avoid medicines like aleve, advil, ibuprofen, aspirin more than 81 mg daily and other NSAIDS whichare not good for kidney patients. Take only tylenol (acetaminophen) up to 2000 mg daily as needed for pain or as directed by your primary care provider. Veto Corona MD Nephrology, [facility] 200 [facility] [address] CC: Ref: VETO CORONA[[id number]] [address] [place] [address] (office) [phone] (fax) PCP: [place] [address] [phone] This chart was completed in part utilizing [employer] Direct Speech Voice Recognition Software. Randomword insertions, pronoun errors, and incomplete sentences are an occasional consequence of this system due to software limitations, and ambient noise. Any questions or concerns about the content, text, or information contained within the body of this dictation should be directly addressed to the provider for clarification. documented in this encounter Nursing Notes * Regi Jacobs RN - 08/13/2023 8:48 AM EST Follow up visit today. Had watchman procedure 2 weeks ago. States she had this done outpatient. Sonpresent in room for visit today. documented in this encounter Plan of Treatment Upcoming Encounters Date Type Department Care Team (Late st Contact Info) Description 08/26/2023 11:20 AM EST Office Visit Family [address] [place] [address] Grey Calvo, DO [address] [place] [address] 09/02/2023 2:30 PM EST Home Visit [facility] [address] [facility] [place] [address] Michelle Hurt RN [address] [facility] [address] 09/11/2023 3:30 PM EST Office Visit Cardiology, [facility] [address] [facility] [place] [address] Stephen Hewitt, 132 [facility] [place] [address] 09/15/2023 8:00 AM EST Appointment Cardiac Studies [address] [address] 10/14/2023 2:30 PM EST Office Visit Hematology/[facility] [address] Nereyda Metz CRNP [facility] [place] [address] 10/24/2023 2:30 PM EST Office Visit Gynecology/Oncology, [place] [address] [place] [address] Vanessa Elena PA-C [address] [place] [address] 11/04/2023 11:00 AM EDT Office Visit Otolaryngology [facility] [address] [facility] [place] [address] Cheri Castillo PA-C 132 [place] [address] 12/08/2023 2:20 PM EDT Office Visit Family Practice [address] [place] [address] [address] [facility] [place] [address] Grey Calvo, [address] [place] [address] 01/21/2024 2:40 PM EDT Office Visit Otolaryngology [facility] [address] [facility] [place] [address] Cheri Castillo [facility]-C [facility] [address] 02/17/2024 3:30 PM EDT Office Visit Nephrology, Jerri Zamora [address] [place] [place] [address] ZemaMichelle churchill PA-C [address] [place] [address] 06/03/2024 2:15 PM EDT Office Visit Ophthalmology, [facility] 132 [facility] [place] [address] Wilbur Benavides, DO [address] [place] [address] 08/09/2024 1:00 PM EST Nurse Only Ancillary [address] [facility] 293 [facility], [place] [address] College, Nurse Annual Wellness Visit [address] [facility] [address] [facility], [place] [address] Health Maintenance Due Date Last Done Comments [...] Additional history exists CKD PHOS USE SMARTSET 16662 08/19/202407/26, 05/01/2022, 04/03/2022, Additional history exists CKD HGB USE SMARTSET 33411 08/20/202408/20, 08/20/2023, 08/19/2023, Additional history exists Depression [...] encounter Medical Devices Implanted 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 Device 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 Shelf Expiration Date Model / Serial / Lot Cath Thermodilution 6fr - [id number] Implanted:Qty: 1 on 01/24/2023 by Wilbur Rivera MD at [facility] [employer] [id number] 10/15/2024 [id number] / / [id number] Mirtaclip G4 - [id number] Implanted:Qty: 1 on 03/10/2023 at [facility] [employer] 11/19/2023 [id number] / / [id number] Device Watchman Flx 31mm - [id number] Implanted:Qty: 1 on 07/31/2023 by Wilbur Rivera MD at [facility] [employer] : INTRV CARD [id number] 12/02/2025 [id number] / / [id number] documented as of this encounter Results * (ABNORMAL) BASIC METABOLIC PANEL (08/13/2023 9:37 AM EST) [facility] BUN 57(H) 6 - 20 mg/dL 08/13/2023 10:45 AM EST [facility] 56-02 Creatinine 1.9(H) 0.5 - 1.0 mg/dL 08/13/2023 10:45 AM [facility] 56 Estimated Glomerular Filtration Rate 27(L) >=60 mL/min 08/13/2023 10:45 AM [facility] 56 Comment:eGFR is calculated b ased on the CKD-EPI 2020 equation Sodium 139 135 - 146 mmol/L 08/13/2023 10:45 AM [facility] 56 Potassium 4.8 3.5 - 5.1 mmol/L 08/13/2023 10:45 AM [facility] 56 Chloride 103 98 - 107 mmol/L 08/13/2023 10:45 AM [facility] 56 CO2 25 22 - 32 mmol/L 08/13/2023 10:45 AM [facility] 56 Anion Gap 11 7 - 15 mmol/L 08/13/2023 10:45 AM [facility] 56 Glucose 132(H) 70 - 120 mg/dL 08/13/2023 10:45 AM [facility] 56 Calcium 9.5 8.4 - 10.2 mg/dL 08/13/2023 10:45 AM [facility] 56 Blood Venous blood specimen / Unknown Venipuncture / Unknown 08/13/2023 9:37 AM EST 08/13/2023 9:37 AM EST Veto Corona MD LAB BLOOD ORDERAB LES [facility] [address] [place], [place] [id number] * (ABNORMAL) HGB (08/13/2023 9:37 AM EST) HGB 9.3(L) 12.0 - 15.3 g/dL 08/13/2023 9:51 AM EST [facility] 56 Blood Venous blood specimen / Unknown Venipuncture / Unknown 08/13/2023 9:37 AM EST 08/13/2023 9:37 AM EST Veto Corona MD LAB BLOOD ORDERAB LES [facility] [address] [place] [id number] documented in this encounter Visit Diagnoses Diagnosis Stage 3b chronic kidney disease (HCC)- Primary HTN, goal below 130/80 Unspecified essential hypertension Iron deficiency anemia due to chronic blood loss Iron deficiency anemia secondary to blood loss (chronic) Hyperuricemia Other abnormal blood chemistry Secondary hyperparathyroidism, renal (HCC) Secondary hyperparathyroidism (of renal origin) Hypervolemia, unspecified hypervolemia type Elevated serum immunoglobulin free light chains Other nonspecific findings on examination of blood Type 2 diabetes mellitus with stage 3b chronic kidney disease, without long-term current use of insulin (HCC) Hypertensive chronic kidney disease with stage 1 through stage 4 chronic kidney disease, or unspecified chronic kidney disease Pulmonary hypertension (HCC) Other chronic pulmonary heart diseases documented in this encounter Advance Directives Documents on File Type Date Recorded Patient 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 No Code Status History Code Status Date [...] Frieda t (per Health Care Power of Security Incident Handler document) Care Teams Sustainable Design Coordinator Relationship Specialty Start Date End Date Grey Calvo DO [address] [place] [address] PCP - General Internal Medicine 03/24/13 documented as of this encounter
--- OUTSIDE RECORDS SUMMARY | 2023-10-10 09:39 | External Medical Summary | Summary of Care ---
Author Name Unknown Organization [facility] Address [address] [place] [address] Phone [phone] Care Team Providers Care Floriculture Professor Name Role Phone Florentin Calvo DO Primary Care Provider [phone] Encounter Details Date Type Department Care Team (Late st Contact Info) Description 08/24/2023 Result Scan Unspecified Department Nish Chavarria MD [address] [facility] [place] [address] <No scans attached> Allergies Active Allergy Reactions Criticality Noted Date Comments Azithromycin Other (Please comment) 12/04/2021 QTC prolongation at [facility] Celecoxib Hives,Rash High 03/24/2013 Other [...] as of this encounter (statuses as of 08/27/2023) Medications Medication Sig Dispensed Refills Start Date End Date Status Green Chips w/Device KitIndications:Type 2 diabetes mellitus with hemoglobin [...] DIRECTED 100 Tablet 3 03/31/2023 Active Ipratropium [place] 0.03 % Nasal Solution (Atrovent)Indicatio ns:Chronic rhinitis [...] bedtime. 90 Tablet 3 05/16/2023 Active Tiotropium [place]-Olodaterol 2.5-2.5 MCG/ACT Inhalation Aerosol Solution (Stiolto Respimat) [...] as of this encounter (statuses as of 08/27/2023) Active Problems Problem Noted Date Diagnosed Date Hypertensive chronic kidney disease with stage 1 through stage 4 chronic kidney disease, or unspecified chronic kidney disease 08/25/2023 Presence of Watchman left atrial appendage closu re device 07/31/2023 S/P mitral valve clip implantation 03/06/2023 Atherosclerosis of ho-chunk 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 02/13/2023 Last Assessment & Plan: Continue statin, sotalol. 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 Last Assessment & Plan: Now [...] as of this encounter (statuses as of 08/27/2023) Resolved Problems Problem Noted Date Diagnosed Date [...] as of this encounter (statuses as of 08/27/2023) Immunizations Name Administration Dates Next Due COVID-19 mRNA, LNP-s, No Pre serve, 2-Dose Series (Moderna) 06/23/2021,10/25/2020,09/28/2020 COVID-19, LNP-s, No Preserve , Larry-sucrose, Ages 12+ (Pfizer) 04/09/2022 COVID-19, MRNA-LNP, 23-24, P F, 30 MCG/0.3 mL, 12 YRS AND ABOVE, IM ([facility]) 06/09/2023 Covid-19, Mrna, Lnp-s, Pf, B ivalent, 30 Mcg, IM, 12 yrs and above ([employer]) 09/10/2022 HEP A - Hepatitis A [...] or do you have serious difficulty hearing? No-[place] can hear w/ hearing aid 03/07/2023 Are [...] Description 09/02/2023 2:30 PM EST [facility], [facility] [address] [place] [address] Michelle Hurt, RN [address] [place] [address] 09/11/2023 3:30 PM EST Office Visit Cardiology, [facility] [address] [place] [address] Stephen Hewitt DO [address] [place] [address] 09/15/2023 8:00 AM EST Appointment Cardiac Studies [facility], [place] [address] [place] [address] 10/14/2023 2:30 PM EST Office Visit Hematology/Oncology [facility] 200 [place] [address] Nereyda Metz CRNP [address] [place] [address] 10/24/2023 2:30 PM EST Office Visit Gynecology/Oncology, [place] [address] [place] [address] Vanessa Elena PA-C [address] [place] [address] 11/04/2023 11:00 AM EDT Office Visit Otolaryngology [facility] [address] [place] [address] Cheri Castillo PA-C [address] [place] [address] 12/08/2023 2:20 PM EDT Office Visit Family Practice [address] [place] [address] 293 [facility], [place] [address] Florentin Calvo, DO 293 [facility] [place] [address] 01/21/2024 2:40 PM EDT Office Visit Otolaryngology [facility] 132 [facility] [place] [address] Cheri Castillo PA-C 132 [facility] [place] [address] 02/17/2024 3:30 PM EDT Office Visit Nephrology, [facility] [place] 200 [facility] [place] [address] Michelle Ivy PA-C [facility] [address] 06/03/2024 2:15 PM EDT Office Visit Ophthalmology, [facility] 132 [facility] [place] [address] Wilbur Benavides, DO [facility] [place] [address] 08/09/2024 1:00 PM EST Nurse Only Ancillary 65 [facility] 293 [facility], [place] [address] College, Nurse Annual Wellness Visit [address], [place] [address] Health Maintenance Due Date Last Done Comments [...] Additional history exists CKD PHOS USE SMARTSET 66672 08/19/202407/26, 05/01/2022, 04/03/2022, Additional history exists CKD HGB USE SMARTSET 05353 08/20/202408/20, 08/20/2023, 08/19/2023, Additional history exists Depression [...] this encounter Medical Devices Implanted Type Area Facility Specialist Device Identifier Shelf Expiration Date Model / Serial / Lot Cath Thermodilution 6fr - [id number] Implanted:Qty: 1 on 01/24/2023 by Wilbur Rivera [place] [facility] [employer] [id number] 10/15/2024 [id number] / / [id number] Mirtaclip G4 - [id number] Implanted:Qty: 1 on 03/10/2023 at [facility] [employer] 11/19/2023 [id number] / / [id number] Device Watchman Flx 31mm - [id number] Implanted:Qty: 1 on 07/31/2023 by Wilbur Rivera [place] [facility] [employer] : INTRV CARD [id number] 12/02/2025 [id number] / / [id number] documented as of this encounter Procedures Procedure Name Priority Date/Time Associated Diagnosis Comments ECHOCARDIOLOGY SCANNED RESULT 08/24/2023 documented in this encounter Results * ECHOCARDIOLOGY SCANNED RESULT (08/24/2023) 08/24/2023 Nish Chavarria MD ECHOCARDIOLOGY documented in this encounter Advance Directives Documents on File Type Date Recorded Patient International Trade Analyst Expl anation Advance Directives and Living Will 11/29/2022 ADVANCE DIRECTIVE / LIVING WILL Power of Printing Press Machine Operator 11/29/2022 POWER OF A TTORNEY Advance Directives and Living Will 10/24/2014 ADVANCE DIRECTIVE / LIVING WILL Power of Printing Press Machine Operator 10/24/2014 POWER OF A TTORNEY [...] the patient have Health Care Power of Printing Press Machine Operator? No Code Status History Code [...] Relationship Healthcare Agent Relationshi p Communication [facility] Adult Child Health Care Agen t (per Health Care Power of Printing Press Machine Operator document) Care Teams Floriculture Professor Relationship Specialty Start Date End Date Florentin Calvo DO [address] [place] [address] PCP - General Internal Medicine 03/24/13 documented as of this encounter
--- OUTSIDE RECORDS SUMMARY | 2023-10-10 09:39 | External Medical Summary | Summary of Care ---
Author Name Unknown Organization [facility] Address [address] [place] [address] Phone [phone] Care Team Providers Care Hose Stripper Name Role Phone Florentin Calvo DO Primary Care Provider [phone] Reason for Visit * Reason Onset Date Comments Information 09/01/2023 Encounter Details Date Type Department Care Team (Late st Contact Info) Description 09/01/2023 Telephone [facility] [place], [place] [address] [place] [address] [phone] Services, Scheduling [address] [place] [address] Information (///) Allergies Active Allergy Reactions Criticality Noted Date [...] Dispensed Refills Start Date End Date Status AlgenetixToAirwoot Verio w/Device KitIndications:Type 2 diabetes mellitus with [...] DIRECTED 100 Tablet 3 03/31/2023 Active Ipratropium [place] 0.03 % Nasal Solution (Atrovent)Indicatio ns:Chronic rhinitis [...] bedtime. 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 No-[place] can hear w/ hearing aid 03/07/2023 Are [...] encounter Miscellaneous Notes * Telephone Encounter - Charisse Ivy OSA - 09/01/2023 9:45 AM EST Inga called to cx her appt tomorrow as she was admitted to hosp and will be going for rehab after.Said her can keep his appt but she needed to cx hers. I explained EDIS and that we would gether scheduled again when home from hosp/rehab documented in this encounter Plan of Treatment Upcoming Encounters Date Type Department Care Team (Late st Contact Info) Description 09/11/2023 3:30 PM EST Office Visit Cardiology, [facility] [address] [place] [address] Stephen Hewitt DO 132 [place] [address] 09/15/2023 8:00 AM EST Appointment Cardiac Studies [facility], [place] [address] [place] [address] 10/14/2023 2:30 PM EST Office Visit Hematology/Oncology [facility] 200 [facility] [address] Nereyda Metz CRNP 400 [facility] [place] [address] 10/24/2023 2:30 PM EST Office Visit Gynecology/Oncology, [place] [address] [place] [address] Vanessa Elena PA-C [address] [place] [address] 11/04/2023 11:00 AM EDT Office Visit Otolaryngology [facility] [address] [place] [address] Cheri Castillo PA-C [address] [place] [address] 12/08/2023 2:20 PM EDT Office Visit Family Practice 65 [facility] 293 [facility], [place] [address] Florentin Calvo, DO 293 [place] [address] 01/21/2024 2:40 PM EDT Office Visit Otolaryngology [facility] 132 [facility] [place] [address] Cheri Castillo PA-C 132 [facility] [place] [address] 02/17/2024 3:30 PM EDT Office Visit Nephrology, [facility] 200 [facility] [address] Zemaitis, Michelle Amezquita PA-C 200 [facility] [address] 06/03/2024 2:15 PM EDT Office Visit Ophthalmology, [facility] 132 [facility] [place] [address] Wilbur Benavides, DO 21 [facility] [place] [address] 08/09/2024 1:00 PM EST Nurse Only Ancillary 65 [facility] 293 [facility], [place] [address] College, Nurse Annual Wellness Visit [address], [place] [address] Health Maintenance Due Date Last Done Comments [...] Additional history exists CKD PHOS USE SMARTSET 59942 08/19/202407/26, 05/01/2022, 04/03/2022, Additional history exists CKD HGB USE SMARTSET 73711 08/20/202408/20, 08/20/2023, 08/19/2023, Additional history exists Depression [...] encounter Medical Devices Implanted Type Area Sales & Service Associate Device Identifier Shelf Expiration Date Model / Serial / Lot Cath Thermodilution 6fr - [id number] Implanted:Qty: 1 on 01/24/2023 by Wilbur Rivera MD at [facility] [employer] [id number] 10/15/2024 [id number] / / [id number] Mirtaclip G4 - [id number] Implanted:Qty: 1 on 03/10/2023 at [facility] [employer] 11/19/2023 [id number] / / [id number] Device Watchman Flx 31mm - [id number] Implanted:Qty: 1 on 07/31/2023 by Wilbur Rivera MD at [facility] [employer] : INTRV CARD [id number] 12/02/2025 [id number] / / [id number] documented as of this encounter Advance Directives Documents on File Type Date Recorded Patient Home Care Manager Rn Expl anation Advance Directives and Living Will 11/29/2022 ADVANCE DIRECTIVE / LIVING WILL Power of Hl7 Developer 11/29/2022 POWER OF A TTORNEY Advance Directives and Living Will 10/24/2014 ADVANCE DIRECTIVE / LIVING WILL Power of Hl7 Developer 10/24/2014 POWER OF A TTORNEY Latest Code [...] the patient have Health Care Power of Hl7 Developer? No Code Status History Code Status Date [...] on File Name Relationship Healthcare Agent [facility] Communication [facility] Adult [facility] (per Health Care Power of Hl7 Developer document) Care Teams Hose Stripper Relationship Specialty Start Date End Date Florentin Calvo DO 293 [facility] [place] [address] PCP - General Internal Medicine 03/24/13 documented as of this encounter
--- OUTSIDE RECORDS SUMMARY | 2023-10-10 09:39 | External Medical Summary | Summary of Care ---
Author Name Unknown Organization [facility] Address [address] [place] [address] Phone [phone] Care Team Providers Care Can Worker Name Role Phone Grey Calvo DO Primary Care Provider [phone] Reason for Visit * Reason Comments Medication Refill Encounter Details Date Type Department Care Team (Late st Contact Info) Description 09/02/2023 Refill Family Practice 65 [facility] [address] [place] [address] Grey Calvo DO [address] [place] [address] Chronic atrial fibrillation; Moderate persistent asthma without complication Allergies Active [...] as of this encounter (statuses as of 09/02/2023) Medications Medication Sig Dispensed Refills Start Date End Date Status myContactCardTouch Verio w/Device KitIndications:Typ e 2 diabetes mellitus [...] Oral Tablet (Lipitor)Indicatio ns:PVD (peripheral vascular disease) ([facility]),Type 2 diabetes mellitus with stage 3a chronic kidney disease and hypertension ([facility]) TAKE ONE TABLET BY MOUTH EVERY DAY DIRECTED 100 Tablet 3 03/31/2023 Active Ipratropium [place] 0.03 % Nasal Solution (Atrovent)Indicati ons:Chronic rhinitis [...] bedtime. 90 Tablet 3 05/16/2023 Active Tiotropium [place]-Olodaterol 2.5-2.5 MCG/ACT Inhalation Aerosol Solution (Stiolto Respimat) [...] BEDTIME 100 Tablet 3 09/02/2023 5 Active Folic Acid 1 MG Oral TabletIndications: Chronic atrial fibrillation (HCC) TAKE ONE TABLET BY MOUTH EVERY MORNING 100 Tablet 1 02/03/2023 4 Discontinue d(Refill) Montelukast Sodium 10 MG Oral Tablet (Singulair)Indicat ions:Moderate persistent asthma without complication TAKE ONE TABLET BY MOUTH AT BEDTIME 100 Tablet 3 08/05/2022 4 Discontinue d(Refill) Hospital, Clinic, or Other Facility [...] as of this encounter (statuses as of 09/02/2023) Active Problems Problem Noted Date Diagnosed Date Hypertensive chronic kidney disease with stage 1 through stage 4 chronic kidney disease, or unspecified chronic kidney disease 08/25/2023 Presence of Watchman left atrial appendage closu re device 07/31/2023 S/P mitral valve clip implantation 03/06/2023 Atherosclerosis of standing rock 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 02/13/2023 [...] Obstructive sleep apnea of adult 09/09/2014 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: Now just using [...] as of this encounter (statuses as of 09/02/2023) Resolved Problems Problem Noted Date Diagnosed Date [...] as of this encounter (statuses as of 09/02/2023) Immunizations Name Administration Dates Next Due COVID-19 mRNA, LNP-s, No Pre serve, 2-Dose Series (Moderna) 06/23/2021,10/25/2020,09/28/2020 COVID-19, LNP-s, No Preserve , Larry-sucrose, Ages 12+ ([employer]) 04/09/2022 COVID-19, MRNA-LNP, 23-24, P F, 30 MCG/0.3 mL, 12 YRS AND ABOVE, IM ([facility]) 06/09/2023 Covid-19, Mrna, Lnp-s, Pf, B ivalent, 30 Mcg, IM, 12 yrs and above ([employer]) 09/10/2022 HEP A - Hepatitis A (Adult [...] do you have serious difficulty hearing? No-[place] can hear w/ hearing aid [...] encounter Miscellaneous Notes * Telephone Encounter - Talha Odell RPh - 09/02/2023 2:51 PM ESTSigned Prescriptions: Disp Refills Folic Acid 1 MG Oral Tablet 100 Ta*1 Sig: TAKE ONE TABLET BY MOUTH EVERY MORNING Authorizing Provider: GREY CALVO Ordering User: TALHA ODELL Montelukast Sodium 10 MG Oral Tablet (Sing*100 Ta*3 Sig: TAKE ONE TABLET BY MOUTH AT BEDTIME Authorizing Provider: GREY CALVO Ordering User: TALHA ODELL * Telephone Encounter - 09/02/2023 12:09 AM ESTPending Prescriptions: Disp Refills Folic Acid 1 MG Oral Tablet 100 Ta*1 Sig: TAKE ONE TABLET BY MOUTH EVERY MORNING Montelukast Sodium 10 MG Oral Tablet (Sing*100 Ta*3 Sig: TAKE ONE TABLET BY MOUTH AT BEDTIME documented in this encounter Plan of Treatment Upcoming Encounters Date Type Department Care Team (Late st [facility] Info) Description 09/11/2023 3:30 PM EST Office Visit Cardiology, [facility] 132 [facility] [place] [address] Stephen Hewitt, [address] [place] [address] 09/15/2023 8:00 AM EST Appointment Cardiac Studies [facility], [place] [address] [place] [address] 09/18/2023 9:30 AM EST Office Visit Hematology/Oncology [facility] 200 [facility] [place] [address] Nereyda Metz CRNP 400 [facility] [address] 10/14/2023 2:30 PM EST Office Visit Hematology/Oncology [facility] 200 [facility] [address] Nereyda Metz CRNP [address] [place] [address] 10/24/2023 2:30 PM EST Office Visit Gynecology/Oncology, [place] [address] [place] [address] Vanessa Elena PA-C [address] [place] [address] 11/04/2023 11:00 AM EDT Office Visit Otolaryngology [facility] [address] [place] [address] Cheri Castillo PA-C [address] [place] [address] 12/08/2023 2:20 PM EDT Office Visit Family Practice [address] [place] [address] 293 [place] [address] Grey Calvo, DO 293 [facility] [place] [address] 01/21/2024 2:40 PM EDT Office Visit Otolaryngology [facility] 132 [facility] [place] [address] Cheri Castillo PA-C 132 [facility] [place] [address] 02/17/2024 3:30 PM EDT Office Visit Nephrology, [facility] 200 [facility] [place] [address] ZemaMichelle churchill PA-C 200 [facility] [address] 06/03/2024 2:15 PM EDT Office Visit Ophthalmology, [facility] 132 [facility] [place] [address] Wilbur Benavides, DO [address] [place] [address] 08/09/2024 1:00 PM EST Nurse Only Ancillary [address] [place] [address] College, Nurse Annual Wellness Visit [address] [place] [address] Health Maintenance Due Date Last Done Comments [...] Additional history exists CKD PHOS USE SMARTSET 79270 08/19/202407/26, 05/01/2022, 04/03/2022, Additional history exists CKD HGB USE SMARTSET 36972 08/20/202408/20, 08/20/2023, 08/19/2023, Additional history exists Depression [...] encounter Medical Devices Implanted Type Area Senior Enterprise Architect Device Identifier Shelf Expiration Date Model / Serial / Lot Cath Thermodilution 6fr - [id number] Implanted:Qty: 1 on 01/24/2023 [place]bur [place] [facility] [place] [employer] [id number] 10/15/2024 [id number] / / [id number] Mirtaclip G4 - [id number] Implanted:Qty: 1 on [place]/10/[place]23 [place] [facility] [place] [facility] [place] [employer] 11/19/2023 [id number] / / [id number] Device Watchman Flx 31mm - [id number] Implanted:Qty: 1 on 07/31/2023 [place] Wilbur Rivera [place] [facility] [place] [facility] [place] [employer] : INTRV CARD [id number] 12/02/2025 [id number] 10 / [id number] documented as of this encounter Visit Diagnoses Diagnosis Chronic atrial fibrillation Atrial fibrillation Moderate persistent asthma without complication Unspecified asthma documented in this encounter Advance Directives Documents on File Type Date Recorded Patient Supervisor Insecticide Expl anation Advance Directives and Living Will 11/29/2022 ADVANCE DIRECTIVE / LIVING WILL Power of Loft Patternmaker 11/29/2022 POWER OF A TTORNEY Advance Directives and Living Will 10/24/2014 ADVANCE DIRECTIVE / LIVING WILL Power of Loft Patternmaker 10/24/2014 POWER OF A TTORNEY Latest Code [...] the patient have Health Care Power of Loft Patternmaker? No Code Status History Code Status Date [...] on File Name Relationship Healthcare Agent [facility] p Communication Bright [place] Adult Child Health Care Agen t (per Health Care Power of Loft Patternmaker document) Care Teams Can Worker Relationship Specialty Start Date End Date Grey Calvo DO [address] [place] [address] PCP - General Internal Medicine 03/24/13 documented as of this encounter
--- OUTSIDE RECORDS SUMMARY | 2023-10-10 09:39 | External Medical Summary | Summary of Care ---
Author Name Unknown Organization [facility] Address [address] [place] [address] Phone [phone] Care Team Providers Care Studio Artist Name Role Phone Florentin Calvo DO Primary Care Provider [phone] Reason for Visit * Reason Onset Date Comments Advice 09/03/2023 Advise - rehab Encounter Details Date Type Department Care Team (Late st Contact Info) Description 09/03/2023 Telephone Family Practice [address] [facility] [place] [address] [place] [address] Florentin Calvo DO [address] [place] [address] Advice (Advise - rehab) Allergies Active Allergy Reactions Criticality Noted Date [...] as of this encounter (statuses as of 09/03/2023) Medications Medication Sig Dispensed Refills Start Date End Date Status FreeBordersTouch Verio w/Device KitIndications:Type 2 diabetes mellitus with [...] chronic kidney disease and hypertension ([facility]) TAKE ONE TABLET BY MOUTH EVERY DAY DIRECTED 100 Tablet 3 03/31/2023 Active Ipratropium [place] 0.03 % Nasal Solution (Atrovent)Indicatio ns:Chronic rhinitis Administer 2 Sprays into nostril in the morning and 2 Sprays before bedtime. 90 mL 3 04/01/2023 Active Sotalol HCl 80 MG Oral Tablet (Betapace)Indicatio ns:Paroxysmal atrial fibrillation ([facility]) Take 0.5 Tablets by mouth in the [...] bedtime. 90 Tablet 3 05/16/2023 Active Tiotropium [place]-Olodaterol 2.5-2.5 MCG/ACT Inhalation Aerosol Solution (Stiolto Respimat) [...] as of this encounter (statuses as of 09/03/2023) Active Problems Problem Noted Date Diagnosed Date Hypertensive chronic kidney disease with stage 1 through stage 4 chronic kidney disease, or unspecified chronic kidney disease 08/25/2023 Presence of Watchman left atrial appendage closu re device 07/31/2023 S/P mitral valve clip implantation 03/06/2023 Atherosclerosis of [place] 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 02/13/2023 [...] Obstructive sleep apnea of adult 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 No-NIGHTMUTE can hear w/ hearing aid 03/07/2023 Are [...] Telephone Encounter - Florentin Calvo DO - 09/03/2023 4:41 PM EST Noted * Telephone Encounter - Hilda Awad LPN - 09/03/2023 4:02 PM EST Inga is currently at [facility] for almost 10 days. Approved to go to [facility], but no beds at that time. Now approved to go to [facility]. Advised to go to [facility] and then once discharged can continue with home therapy. Thank you * Telephone Encounter - Grace Arnold OSA - 09/03/2023 10:26 AM EST Pts son, Bright, calling to speak with Hilda or DR Calvo. Bright states patient was not approved for the rehab they were discussing and he would like to discuss diff rehabs and locations with us. He can be reached at [phone] documented in this encounter Plan of Treatment Upcoming Encounters Date Type Department Care Team (Late st Contact Info) Description 09/11/2023 3:30 PM EST Office Visit Cardiology, [facility] [address] [place] [address] Stephen Hewitt, [address] [place] [address] 09/15/2023 8:00 AM EST Appointment Cardiac Studies [address] [address] 09/18/2023 9:30 AM EST Office Visit Hematology/Oncology [facility] 200 [facility] [address] Nereyda Metz CRNP 400 [facility] [place] [address] 10/14/2023 2:30 PM EST Office Visit Hematology/Oncology [facility] 200 [facility] [place] [address] Nereyda Metz CRNP 400 [facility] [place] [address] 10/24/2023 2:30 PM EST Office Visit Gynecology/Oncology, [place] [address] [place] [address] Vanessa Elena PA-C [address] [place] [address] 11/04/2023 11:00 AM EDT Office Visit Otolaryngology [facility] 132 [facility] [place] [address] Cheri Castillo PA-C 132 [facility] [address] 12/08/2023 2:20 PM EDT Office Visit Family Practice [address] [place] [address] 293 [place] [address] Florentin Calvo, 293 [place] [address] 01/21/2024 2:40 PM EDT Office Visit Otolaryngology [facility] [address] [place] [address] Cheri Castillo PA-C 132 [facility] [place] [address] 02/17/2024 3:30 PM EDT Office Visit Nephrology, [facility] 200 [facility] [place], [place] [address] ZeMichelle chiu PA-C [address] [place], [place] [address] 06/03/2024 2:15 PM EDT Office Visit Ophthalmology, [facility] 132 [facility] [place] [address] Wilbur Benavides, [address] [place] [address] 08/09/2024 1:00 PM EST Nurse Only Ancillary 65 [facility] 293 [facility], [place] [address] College, Nurse Annual Wellness Visit 65 [facility] 293 [facility], [place] [address] Health Maintenance Due Date Last Done Comments Hepatitis B (1 of 3 - Risk 3-dose series) 2000 TSH 09/24/2023 09/24/2022, 01/10/2022, 02/12/2022, Additional history exists Diabetic Foot Exam 10/01/2023 10/01/2022, 0 10/26/2021, 12/05/2020, Additional history exists HbA1c 02/14/2024 2023, 01/25, 08/27/2022, Additional history exists GFR 02/20/2024 08/21/2023, 07/26, 08/19/2023, Additional history exists Albumin/Creatinine Ratio 02/22/2024 023, 05/01/2022, 10/26/2021, Additional history exists Diabetic Eye Exam 05/22/2024 05/22/2023, , 05/22/2023, Additional history exists CKD PHOS USE SMARTSET 82224 08/19/202407/26, 05/01/2022, 04/03/2022, Additional history exists CKD HGB USE SMARTSET 19231 08/20/202408/20, 08/20/2023, 08/19/2023, Additional history exists Depression [...] this encounter Medical Devices Implanted Type Area Pasta Press Operator Device Identifier Shelf Expiration Date Model / Serial / Lot Cath Thermodilution 6fr - [id number] Implanted:Qty: 1 on 01/24/2023 by Wilbur Rivera MD at [facility] [employer] [id number] 10/15/2024 [id number] / / [id number] Mirtaclip G4 - [id number] Implanted:Qty: 1 on 03/10/2023 at [facility] TM 11/19/2023 [id number] / / [id number] Device Watchman Flx 31mm - [id number] Implanted:Qty: 1 on 07/31/2023 by Wilbur Rivera MD at [facility] Invaluable : INTRV CARD [id number] 12/02/2025 [id number] documented as of this encounter Advance Directives Documents on File Type Date Recorded 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 No Code Status History Code Status Date [...] Agen t (per Health Care Power of Operator Helper document) Care Teams Studio Artist Relationship Specialty Start Date End Date Florentin Calvo DO 293 [facility] [place] [address] PCP - General Internal Medicine 03/24/13 documented as of this encounter
--- OUTSIDE RECORDS SUMMARY | 2023-10-10 09:39 | External Medical Summary | Summary of Care ---
Author Name Unknown Organization [facility] Address [address] [place] [address] Phone [phone] Care Team Providers Care Assistant Tennis Coach Name Role Phone Florentin Calvo DO Primary Care Provider [phone] Reason for Visit * Reason Onset Date Comments Appointment 09/01/2023 Encounter Details Date Type Department Care Team (Late st Contact Info) Description 09/01/2023 Telephone Hematology/Oncology Treatment, [place] [address] [place] [address] Nereyda Metz CRNP 400 [place] [address] Appointment Allergies Active Allergy Reactions Criticality Noted Date Comments Azithromycin Other (Please comment) 12/04/2021 QTC prolongation at [facility] Celecoxib Hives,Rash High 03/24/2013 Other [...] Dispensed Refills Start Date End Date Status PushCoinTomVisum VerHydra Dx w/Device KitIndications:Type 2 diabetes mellitus with hemoglobin [...] DIRECTED 100 Tablet 3 03/31/2023 Active Ipratropium [place] 0.03 % Nasal Solution (Atrovent)Indicatio ns:Chronic rhinitis [...] bedtime. 90 Tablet 3 05/16/2023 Active Tiotropium [place]-Olodaterol 2.5-2.5 MCG/ACT Inhalation Aerosol Solution (Stiolto Respimat) [...] mitral valve clip implantation 03/06/2023 Atherosclerosis of [place] 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 02/13/2023 Last Assessment & Plan: Continue statin, sotalol. 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 No-NATIVE can hear w/ hearing aid 03/07/2023 Are [...] PM EST Received message from Vince at [facility]. Patient awaiting a bed at [facility]. Patient was given IV infusions/ blood transfusions [...] 09/11/2023 3:30 PM EST Office Visit Cardiology, [facility] [address] [facility] [address] Stephen Hewitt, [address] [place] [address] 09/15/2023 8:00 AM EST Appointment Cardiac Studies [facility] [place] [address] [place] [address] 10/14/2023 2:30 PM EST Office Visit Hematology/Oncology [facility] 200 [facility] [place] [address] Nereyda Metz CRNP 400 [facility] [place] [address] 10/24/2023 2:30 PM EST Office Visit Gynecology/Oncology, [place] [address] [place] [address] Vanessa Elena PA-C [address] [place] [address] 11/04/2023 11:00 AM EDT Office Visit Otolaryngology [facility] 132 [facility] [place] [address] Cheri Castillo PA-C [address] [place] [address] 12/08/2023 2:20 PM EDT Office Visit Family Practice 65 [facility] 293 [facility], [place] [address] Florentin Calvo, 293 [place] [address] 01/21/2024 2:40 PM EDT Office Visit Otolaryngology [facility] [address] [place] [address] Cheri Castillo PA-C 132 [facility] [place] [address] 02/17/2024 3:30 PM EDT Office Visit Nephrology, [facility] [address] [facility] [place] [address] ZemaitisMichelle PA-C 200 [facility] [address] 06/03/2024 2:15 PM EDT Office Visit Ophthalmology, [facility] 132 [facility] [place] [address] Wilbur Benavides, DO [address] [place] [address] 08/09/2024 1:00 PM EST Nurse Only Ancillary 65 [facility] 293 [facility], [place] [address] College, Nurse Annual Wellness Visit [address], [place] [address] Health Maintenance Due Date Last Done Comments [...] Additional history exists CKD PHOS USE SMARTSET 05040 08/19/202407/26, 05/01/2022, 04/03/2022, Additional history exists CKD HGB USE SMARTSET 28907 08/20/202408/20, 08/20/2023, 08/19/2023, Additional history exists Depression [...] this encounter Medical Devices Implanted Type Area Reprographics Technician Device Identifier Shelf Expiration Date Model / Serial / Lot Cath Thermodilution 6fr - [id number] Implanted:Qty: 1 on 01/24/2023 by Wilbur Rivera MD at [facility] [employer] [id number] 10/15/2024 [id number] / / [id number] Mirtaclip G4 - [id number] Implanted:Qty: 1 on 03/10/2023 at [facility] [employer] 11/19/2023 [id number] / / [id number] Device Watchman Flx 31mm - [id number] Implanted:Qty: 1 on 07/31/2023 by Wilbur Rivera MD at [facility] [employer] : INTRV CARD [id number] 12/02/2025 [id number] / / [id number] documented as of this encounter Advance Directives Documents on File Type Date Recorded 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 No Code Status History Code Status [...] Agents on File Name Relationship Healthcare Agent [facility] Communication [facility] Adult Child Health Care Agen t (per Health Care Power of Assurance Engineer document) Care Teams Assistant Tennis Coach Relationship Specialty Start Date End Date Florentin Calvo DO 293 [place] [address] PCP - General Internal Medicine 03/24/13 documented as of this encounter
[2023-10-10] MEDS: INSULIN ASPART PER UNIT CHARGE SC SCH (09:49)
--- NOTE | 2023-10-10 11:36 | Electrocardiogram Report ---
Test Reason : Blood Pressure : / mmHG Vent. Rate : 086 BPM Atrial Rate : 086 BPM P-R Int : 110 ms QRS Dur : 108 ms QT Int : 424 ms P-R-T Axes : 055 115 011 degrees QTc Int : 507 ms Atrial-sensed ventricular-paced rhythm Abnormal ECG When compared with ECG of 25-AUG-2023 07:50, Vent. rate has increased BY 24 BPM Confirmed by Carlos Karimi ([id number]) on 10/10/2023 11:36:22 AM Referred By: REFERRED SELF Confirmed By:Carlos Karimi
--- OUTSIDE RECORDS SUMMARY | 2023-10-10 12:19 | External Medical Summary | Summary of Care ---
Author Name Unknown Organization [facility] Address [address] [place] [address] Phone [phone] Care Team Providers Care Patcher Wood Welder Name Role Phone Florentin Calvo DO Primary Care Provider [phone] Reason for Visit * Reason Onset Date Comments Advice 10/08/2023 tests Information 10/08/202310/08 Encounter Details Date Type Department Care Team (Late st Contact Info) Description 10/08/2023 Telephone Family Practice 65 [facility] [address] [place] [address] Florentin Calvo DO 293 [place] [address] Advice (tests); Information (10/08) Allergies [...] Dispensed Refills Start Date End Date Status PrestoBoxTouch Prosonix w/Device KitIndications:Type 2 diabetes mellitus with hemoglobin [...] Additional Information Patient not taking.Reported on 10/06/2023 [employer] Prosonix In Vitro Strip (Glucose Blood) Test blood [...] Oral Tablet (Lipitor)Indication s:PVD (peripheral vascular disease) ([facility]),Type 2 diabetes mellitus with stage 3a chronic kidney disease and hypertension ([facility]) TAKE ONE TABLET BY MOUTH EVERY DAY DIRECTED 100 Tablet 3 03/31/2023 Active Ipratropium [place] 0.03 % Nasal Solution (Atrovent)Indicatio ns:Chronic rhinitis [...] bedtime. 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 No-GAMBELL can hear w/ hearing aid 03/07/2023 Are [...] as of this encounter Miscellaneous Notes * Addendum Note - Hilda Awad LPN - 10/09/2023 4:10 PM ESTAddended by: HILDA AWAD on: 10/09/2023 04:10 PM Modules accepted: Orders * Telephone Encounter - Hilda Awad LPN - 10/09/2023 4:04 PM EST Physical therapist and occupational therapist was at home and was told she should either go to er or be seen. Offered appointment for tomorrow, took appointment. Will have labs done prior to appt. Did advise if problems over night call doc certified rehabilitation counselor. Will keep appt tomorrow. Did advise if concerned overnight could also go to ER if very weak. * Telephone Encounter - Grace Jeffries OSA - 10/09/2023 3:41 PM EST Bright requesting Hilda call him * Telephone Encounter - Hilda Awad LPN - 10/09/2023 10:31 AM EST Will do, son will be stopping by to corn picker stool containers. * Telephone Encounter - Grace Arnold OSA - 10/09/2023 10:12 AM EST Pt is asking if she can do all her blood work on Friday as she will be going to , She was not sure of when to have those labs done. Please call patient at [phone] to advise. * Telephone Encounter - Ania Kebede LPN - 10/08/2023 4:35 PM EST Call placed to patient and relayed information from Dr. Calvo. Pt acknowledged understanding. Agreeable to blood work and stool specimens. Agreeable to OV. Lab orders pended help desk intern - please contact pt to assist with [...] Care Team (Late st Contact Info) Description 10/10/2023 3:40 PM EST Office Visit Family Practice 65 [facility] [place] 293 [facility], [place] [address] Steph Wheat DO 293 [facility], [place] [address] 10/14/2023 2:30 PM EST Office Visit Hematology/Oncology [facility] [place] 200 [facility], [place] [address] Nereyda Metz CRNP [address] [place] [address] 10/14/2023 3:40 PM EST Office Visit Family Practice 65 [facility] 293 [place] [address] Florentin Calvo, DO 293 [place] [address] 10/29/2023 10:00 AM EST Office Visit Family Practice [address] [place] [address] 293 [place] [address] Florentin Calvo, DO 293 [place] [address] 11/03/2023 8:00 AM EDT Appointment Cardiac Studies [facility], [place] [address] [place] [address] 11/03/2023 1:30 PM EDT Office Visit Gynecology/Oncology, [place] [address] [place] [address] Vanessa Elena PA-C [address] [place] [address] 11/04/2023 11:00 AM EDT Office Visit Otolaryngology [facility] 132 [facility] [place] [address] Cheri Castillo PA-C 132 [facility] [place] [address] 11/11/2023 8:45 AM EDT Office Visit Hematology/Oncology [facility]ri [facility] [place] [address] [place] [address] Hasmukh Hood MD [address] [place] [address] 12/08/2023 2:20 PM EDT Office Visit Family Practice [address] [place] [address] 293 [place] [address] Florentin Calvo, 293 [place] [address] 01/21/2024 2:40 PM EDT Office Visit Otolaryngology [facility] 132 [facility] [address] Cheri Castillo PA-C 132 [place] [address] 02/17/2024 3:30 PM EDT Office Visit Nephrology, [facility] 200 [facility], [place] [address] Michelle Ivy PA-C 200 [facility], [place] [address] 06/03/2024 2:15 PM EDT Office Visit Ophthalmology, [facility] 132 [place] [address] Wilbur Benavides, DO 21 [facility] [place] [address] 08/09/2024 1:00 PM EST Nurse Only Ancillary [address], [place] [address] College, Nurse Annual Wellness Visit [address] [place] [address] Scheduled Orders Name Type Priority Associated Diagnoses Orde r Schedule GASTROINTESTINAL PATHOGEN PANEL, STOOL Lab Routine Diarrhea Expected: 10/09/2023 (Approximate), Expires: 10/07/2024 CLOSTRIDIUM DIFFICILE, PCR Lab Routine Diarrhea Expected: 10/09/2023 (Approximate), Expires: 10/07/2024 CBC WITH WBC DIFFERENTIAL Lab STAT Diarrhea Expected: 10/10/2023, Expires: 10/09/2024 COMPREHENSIVE METABOLIC PANEL Lab STAT Diarrhea Expected: 10/10/2023, Expires: 10/08/2024 Health Maintenance Due Date Last Done Comments Hepatitis B (1 of 3 - Risk 3-dose series) 2000 HbA1c 02/14/2024 2023, 01/25, 08/27/2022, Additional history exists Albumin/Creatinine Ratio 02/22/2024 023, 05/01/2022, 10/26/2021, Additional history exists GFR 03/29/2024 09/29/2023, 08/26, 09/15/2023, Additional history exists Diabetic Eye Exam 05/22/2024 05/22/2023, , 05/22/2023, Additional history exists CKD PHOS USE SMARTSET 08701 08/19/202407/26, 05/01/2022, 04/03/2022, Additional history exists Diabetic Foot Exam 09/15/2024 09/15/2023, 0 10/01/2022, 10/26/2021, Additional history exists TSH 09/15/2024 09/15/2023, 08/27, 08/27/2022, Additional history exists Depression Screening 09/29/2024 09/29/2023 CKD HGB USE SMARTSET 98474 10/06/202410/06, 10/06/2023, 09/29/2023, Additional history exists DXA [...] this encounter Medical Devices Implanted Type Area Turret Lathe Set Up Operator Device Identifier Shelf Expiration Date Model / Serial / Lot Cath Thermodilution 6fr - [id number] Implanted:Qty: 1 on 01/24/2023 by Wilbur Rivera MD [place] [facility] [employer] [id number] 10/15/2024 [id number] / / [id number] Mirtaclip G4 - [id number] Implanted:Qty: 1 on 03/10/2023 [place] [facility] Handle 11/19/2023 [id number] / / [id number] Device Watchman Flx 31mm - [id number] Implanted:Qty: 1 on 07/31/2023 by Wilbur Rivera MD [place] [facility] [employer] : INTRV CARD [id number] 12/02/2025 [id number] / / [id number] documented as of this encounter Visit Diagnoses Diagnosis Diarrhea- Primary documented in this encounter Advance Directives Documents on File Type Date Recorded 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 No Code Status History Code Status Date [...] Agents on File Name Relationship Healthcare Agent [facility] Communication Bright [place] Adult Child Health Care Agen t (per Health Care Power of Filling Hauler Weaving document) Care Teams Patcher Wood Welder Relationship Specialty Start Date End Date Florentin Calvo DO 293 [place] [address] PCP - General Internal Medicine 03/24/13 documented as of this encounter
--- OUTSIDE RECORDS SUMMARY | 2023-10-10 12:20 | External Medical Summary | Summary of Care ---
Author Name Unknown Organization [facility] Address [address] [place] [address] Phone [phone] Care Team Providers Care Roadability Machine Operator Name Role Phone Florentin Calvo DO Primary Care Provider [phone] Reason for Visit * Reason Onset Date Comments Advice 10/08/2023 tests Information 10/08/202310/08 Encounter Details Date Type Department Care Team (Late st Contact Info) Description 10/08/2023 Telephone Family Practice [facility] [address] [place] [address] Florentin Calvo DO [address] [place] [address] Advice (tests); Information (10/08) Allergies Active Allergy Reactions Criticality Noted Date Comments Azithromycin Other (Please comment) 12/04/2021 QTC prolongation at [facility] Celecoxib Hives,Rash High 03/24/2013 Other reaction(s): [...] Dispensed Refills Start Date End Date Status eBOOK Initiative [employer]Touch Mambu w/Device KitIndications:Type 2 diabetes mellitus with hemoglobin [...] Additional Information Patient not taking.Reported on 10/06/2023 [employer] Mambu In Vitro Strip (Glucose Blood) Test blood [...] DIRECTED 100 Tablet 3 03/31/2023 Active Ipratropium [place] 0.03 % Nasal Solution (Atrovent)Indicatio ns:Chronic rhinitis [...] bedtime. 90 Tablet 3 05/16/2023 Active Tiotropium [place]-Olodaterol 2.5-2.5 MCG/ACT Inhalation Aerosol Solution (Stiolto Respimat) [...] mitral valve clip implantation 03/06/2023 Atherosclerosis of 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 02/13/2023 Last Assessment & Plan: Continue statin, sotalol. ASA History of TIA (transient ischemic attack) 11/29 Last Assessment & Plan: -Recent admission to [facility], presented with numbness of tongue and [...] Obstructive sleep apnea of adult 09/09/2014 Overview: MANAGER EDITORIAL Last Assessment & Plan: Now just using [...] or do you have serious difficulty hearing? No-AKHIOK can hear w/ hearing aid 03/07/2023 Are [...] do, son will be stopping by to pharmacy picking tech stool containers. * Telephone Encounter - Grace Arnold OSA - 10/09/2023 10:12 AM EST Pt is asking if she can do all her blood work on Friday as she will be going to [facility], She was not sure of when to have those labs done. Please call patient at [phone] to advise. * Telephone Encounter - Ania Kebede LPN - 10/08/2023 4:35 PM EST Call placed to patient and relayed information from Dr. Calvo. Pt acknowledged understanding. Agreeable to blood work and stool specimens. Agreeable to OV. Lab orders pended service desk specialist - please contact pt to assist with [...] 10/14/2023 2:30 PM EST Office Visit Hematology/Oncology [facility] [address] [facility] [place] [address] Nereyda Metz CRNP [address] [place] [address] 10/14/2023 3:40 PM EST Office Visit Family Practice [address] [place] [address] [address] [place] [address] Florentin Calvo, [address] [place] [address] 10/29/2023 10:00 AM EST Office Visit Family [address] [place] [address] Florentin Calvo, [address] [place] [address] 11/03/2023 8:00 AM EDT Appointment Cardiac Studies [facility], [address] [address] 11/03/2023 1:30 PM EDT Office Visit Gynecology/Oncology, [place] [address] [place] [address] Vanessa Elena PA-C [address] [place], [place] [id number] 11/04/2023 11:00 AM EDT Office Visit Otolaryngology [facility] [address] [facility] [place] [address] Cheri Castillo PA-C 132 [facility] [place] [address] 11/11/2023 8:45 AM EDT Office Visit Hematology/Oncology [facility] 200 [facility] [place] [address] Hasmukh Hood MD [address] [facility] [place] [address] 12/08/2023 2:20 PM EDT Office Visit Family Practice [address] [place] [address] [facility] [address] Fl[facility]in [facility]vo[facility] [address] 01/21/2024 2:40 PM EDT Office Visit Otolaryngology [facility] 132 [facility] [place] [address] Cheri Castillo PA-C 132 [facility] [place] [address] 02/17/2024 3:30 PM EDT Office Visit Nephrology, [facility] [address] [place] [place] [address] ZemaMichelle churchill PA-C [address] [place] [place] [address] 06/03/2024 2:15 PM EDT Office Visit Ophthalmology, [facility] 132 [facility] [place] [address] Wilbur Benavides, DO 21 [facility] [place] [address] 08/09/2024 1:00 PM EST Nurse Only Ancillary [address] [place] 293 [facility], [place] [address] College, Nurse Annual Wellness Visit [address], [place] [address] Scheduled Orders Name Type Priority Associated Diagnoses [...] Additional history exists CKD PHOS USE SMARTSET 58913 08/19/202407/26, 05/01/2022, 04/03/2022, Additional history exists Diabetic Foot Exam 09/15/2024 09/15/2023, 0 10/01/2022, 10/26/2021, Additional history exists TSH 09/15/2024 09/15/2023, 08/27, 08/27/2022, Additional history exists Depression Screening 09/29/2024 09/29/2023 CKD HGB USE SMARTSET 19602 10/06/202410/06, 10/06/2023, 09/29/2023, Additional history exists DXA [...] this encounter Medical Devices Implanted Type Area Seamer Operator Device Identifier Shelf Expiration Date Model / Serial / Lot Cath Thermodilution 6fr - [id number] Implanted:Qty: 1 on 01/24/2023 by Wilbur Rivera MD at [facility] [employer] [id number] 10/15/2024 [id number] / / [id number] Mirtaclip G4 - [id number] Implanted:Qty: 1 on 03/10/2023 at [facility] [employer] 11/19/2023 [id number] / / [id number] Device Watchman Flx 31mm - [id number] Implanted:Qty: 1 on 07/31/2023 by Wilbur Rivera MD at [facility] [employer] : INTRV CARD [id number] 12/02/2025 [id number] documented as of this encounter Visit Diagnoses Diagnosis Diarrhea- Primary documented in this encounter Advance Directives Documents on File Type Date Recorded Patient Keg Inspector Expl anation Advance Directives and Living Will 11/29/2022 ADVANCE DIRECTIVE / LIVING WILL Power of Escrow Secretary 11/29/2022 POWER OF A TTORNEY Advance Directives and Living Will 10/24/2014 ADVANCE DIRECTIVE / LIVING WILL Power of Escrow Secretary 10/24/2014 POWER OF A TTORNEY Latest Code [...] the patient have Health Care Power of Escrow Secretary? No Code Status History Code Status Date [...] Agen t (per Health Care Power of Escrow Secretary document) Care Teams Roadability Machine Operator Relationship Specialty Start Date End Date Florentin Calvo DO [address] [place] [address] PCP - General Internal Medicine 03/24/13 documented as of this encounter
--- NOTE | 2023-10-10 12:53 | CT Scan Report ---
CT OF THE ABDOMEN AND PELVIS WITHOUT CONTRAST CLINICAL HISTORY: Abdominal pain. COMPARISON STUDY: CT of the abdomen and pelvis February 03, 2017. PET/CT October 29, 2017. MRCP and right u pper quadrant ultrasound June 05, 2020. Chest CT August 23, 2023. TECHNIQUE: Axial images of the abdomen and pelvis were obtained without IV contrast. Images were revi ewed in the axial, sagittal, and coronal planes. Automated exposure control was utilized for the kemar dy. A dose lowering technique was utilized adhering to the principles of ALARA. FINDINGS: Mild interlobular septal thickening within the visualized lung bases is present. There are scattered subpleural ground glass opacities. Pacer leads are partially imaged. There is cardiomegaly. Left atrial appendage device is in place. There is a trace pericardial effusion. No renal, ureteral or bladder calculi are present. Calcifications within the renal sinuses are likely vascular. Water at tenuation bilateral renal lesions favor cysts. There is moderate bilateral renal cortical thinning. U nenhanced images of the liver, spleen, adrenal glands and pancreas are unremarkable. There is no bili patti ductal dilatation status post cholecystectomy. The appendix is normal. There is no evidence for a bowel obstruction. Sigmoid diverticulosis is present. There is an inflamed diverticulum of the mid s igmoid colon with mild adjacent inflammation. No free air or abscess is present. There is mild coloni c wall thickening. No pathologically enlarged lymph nodes are present. There are no acute fractures. IMPRESSION: 1. Acute sigmoid diverticulitis. Inflamed sigmoid diverticulum with mild inflammation. No free air. N o abscess. 2. Mild interstitial pulmonary edema. Subpleural groundglass opacities within the lower lungs could r eflect a superimposed infectious process or alveolar pulmonary edema. 3. No bowel obstruction. Normal appendix. ACT 112: Negative or not required by law. Electronically signed by: Otoniel Lemus M.D. 10/10/2023 12:51 PM
[2023-10-10] MEDS: metroNIDAZOLE 500 MG/100 ML BAG IV SCH (15:28)
[2023-10-10] MEDS: CIPROFLOXACIN / D5W 400 MG/200 ML BAG IV SCH (15:28)
[2023-10-10] MEDS: allopurinoL 300 MG TAB PO SCH (20:25)
[2023-10-10] MEDS: MONTELUKAST SODIUM 10 MG TABLET PO SCH (20:25)
[2023-10-11] MEDS: MELATONIN 3 MG TAB PO PRN (02:39)
[2023-10-11 09:11] LABS: Mean Corpuscular Hemoglobin 30.9 pg (25.0-34.0); Mean Corpuscular Hgb Conc 32.1 g/dL (32.0-36.0); Mean Corpuscular Volume 96.2 fL (80.0-100.0); Nucleated RBC # (auto) 0.02 K/uL (0.00-0.12); Nucleated RBC % (auto) 0.2 %; Platelet Count 212 K/uL (130-400); RDW Coefficient of Variation 16.5 % (11.5-14.5); RDW Standard Deviation 58.3 fL (36.4-46.3); Red Blood Count 2.91 M/uL (4.20-5.40); White Blood Count 8.13 K/ul (4.8-10.8)
[2023-10-11 09:24] LABS: Albumin Globulin Ratio 1.3 (0.9-2); Albumin Level 3.5 gm/dl (3.4-5.0); BUN Creatinine Ratio 17.2 (10-20); Bilirubin,Total 0.5 mg/dl (0.2-1.0); Calcium 8.8 mg/dl (8.6-10.3); Creatinine Clr Calc Pharmacy 29.3 ml/min; Est GFR (African American) 38.5 ml/min; Est GFR (Non-African American) 33.2 ml/min; Globulin 2.6 gm/dl (2.5-4.0); Magnesium 1.9 mg/dl (1.7-2.4); Phosphorus 3.5 mg/dl (2.5-4.9); Potassium 3.9 mmol/L (3.5-5.1); Total Protein 6.1 gm/dl (6.0-8.3)
[2023-10-11] MEDS: ONDANSETRON INJ 2 MG/ML 2 ML VIAL IV PRN (10:01)
[2023-10-11] MEDS ORDERED: ANUSOL SUPP 1 EA PR PRN (10:44)
[2023-10-11] MEDS: ERTAPENEM SODIUM 500 MG in SYRINGE 0 ML IV SCH (11:34)
--- NOTE | 2023-10-11 17:56 | Hospitalist Progress Note ---
Date of Service October 11, 2023 Assessment & Plan (1) Generalized weakness: Plan: Ms. Barakat is an 83-year-old female with past medically history significant for type 2 diabetes, diabetic retinopathy, CKD stage III, hypercholesterolemia, obstructive sleep apnea, moderate persistent asthma, paroxysmal atrial fibrillation, s/p watchman's device, history of mitral valve clip implantation, sick sinus syndrome s/p pacemaker, pulmonary hypertension, peripheral vascular disease, chronic diastolic CHF, angiodysplasia of colon, aneurysm of left carotid artery, severe tricuspid regurgitation, CAD , GERD, Mnire's disease, iron deficiency anemia, depression, history of endometrial cancer , TIA presented 10/09 with weakness and diarrhea. Patient on admission noted to have hgb 10, wbc 11.34, mild hyponatremia, TSH 10 iso recent illness/normal T4, baseline trop elevation 26.5, and mild LFT elevations consistent with prior. Renal function appears at baseline per trends since 2022. Per admitting hospitalist: "She was in the hospital in early August of this year with weakness and at the time she also found to have hemoglobin of 6.5 requiring 2 units of PRBCs. And also was treated for sinusitis with oral doxycycline. Anemia workup was done with peripheral smear which showed occasional teardrop cells thought to be related to chronic disease but myelodysplastic syndrome has not been ruled out and further hematology evaluation was recommended. She also received 5-day course of IV Venofer. Seen by GI and recommended conservative management at that time. She also seen by nephrology for TIFFANY on chronic disease. Symptoms improved with transfusion. Her sotalol dose was reduced to 40 mg daily due to renal insufficiency. Followed up with cardiology in first week of September and seems she underwent follow-up BRENDAN for a Watchman procedure in August and was noted large thrombus on device. At that point her aspirin was discontinued she was started Eliquis 2.5 mg twice daily. There is a plan to repeat echo to be completed near future. And also plan for endoscopy and colonoscopy in near future. After last admission in August patient was in rehab. As per son after coming from home she is been gradually getting weak. She ambulates with a rollator walker. Lately having diarrhea. Not able to eat much. Poor appetite. Recently she fell from the commode but did not totally fall down. Yesterday in the parking lot of [employer] she almost fell down. Because of diarrhea and weakness son brought her back to the hospital today." Patient endorses mild subjective improvement. CT AB P yesterday revealed acute diverticulitis Initially started on cipro/flagyl, but prolonged QTc and SVT noted overnight.Transitioned to ertapenem. #Generalized weakness likely related to ongoing diarrhea, poor nutrition -Treat infection below -PT/OT #Acute abdominal pain #Acute sigmoid diverticulitis #Acute Diarrhea #Enteroaggreative E Coli #C. Diff gene positive Back positive for c diff gene and EAEC -Complete course of Dificid, 10/04 -Encourage PO Gentle fluids, CLD -Ertapenem q24, advance diet as symptoms improve -BMP in am #Chronic JALEEL Anemia Iron deficiency anemia Hgb down to 8.6 (baseline 7-8), likely hemoconcentrated from diarrhea/dehydration as all cell lines notably decreased Last admission she received 2 units of PRBCs and IV Venofer There is a plan for OP EGD and colonoscopy Patient follows with Dr. 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 sheer stress 09/[address] Hemoccult likely false positive given chronic iron supplementation #Abnormal liver enzymes Chronic mild elevation in AST, ALP No RUQ tenderness, will assess in CT AP #Chronic Troponin elevation -Plateaued, stable elevation in 20s CTM #Paroxysmal atrial fibrillation s/p Watchman device #History of mitral valve clip implantation Echo in August showed large thrombus on Watchman device On Eliquis Currently not on any rate controlling medications Following with cardiology Plan for repeat echo #Sick sinus syndrome #S/p pacemaker Monitor on tele #CKD stage IV GFR consistently in ~mid 29s since 11/2022 Creatinine was around 1.7-1.8 last admission Holding torsemide, resume as able Continue gentle fluids Follow BMP #Elevated troponin, likely demand iso dehydration, poor renal baseline Will follow serial enzymes #abnormal UA No further treatment, asymptomatic #Hypothyroidism Continue home Synthroid TSH 10, normal T4 1.2 Needs follow-up OP outside of acute illness #Diabetes Mellitus Type II, with CKD Not on meds, A1C 10/10 6.1% Insulin sliding scale #Hyperlipidemia On statin #GERD On Protonix #Chronic Heart failure with preserved ejection fraction Holding torsemide Getting gentle fluids Monitor for volume overload, resume diuretic as soon as possible #Depression On Zoloft #Asthma Stable Continue home inhalers DVT prophylaxis Eliquis Disposition Med/tele Full code, per prior hospitalist " if there is chance of recovery" Admission and Anticipated Discharge Date Admission Date: October 09, 2023 Subjective Reports improvement in abdominal pain Endorsed nausea this am, which resolved upon evaluation Spoke to son Bright over the phone with patient at bedside, all questions answered Physical Exam Constitutional: WD/WN, vitals as above Respiratory: normal respiratory effort, lungs clear to auscultation Cardiovascular: RRR, no murmur, no edema Gastrointestinal (Abdomen): no tenderness to palpation Results & Data Results & Data Vital Signs (Past 12 Hours) Vital Signs Temp Pulse Pulse Resp BP Pulse Ox O2 Del Method 10/11/23 16:10 73 10/11/23 15:12 36.3 C L 69 18 132/70 93 Room Air 10/11/23 12:22 36.3 C L 72 18 114/63 92 Room Air 10/11/23 07:44 83 10/11/23 07:32 Room Air 10/11/23 07:17 36.3 C L 73 18 120/67 93 Room Air Laboratory Results Short CBC 10/11/23 Range/Units 08:46 WBC 8.13 (4.8-10.8) K/ul Hgb 9.0 L (12.0-16.0) g/dl Hct 28.0 L (37.0-47.0) % Plt Count 212 (130-400) K/uL BMP 10/11/23 08:46 Sodium 136 Potassium 3.9 Chloride 107 Carbon Dioxide 22 BUN 25 H Creatinine 1.45 H D Glucose 117 H Calcium 8.8 Liver Function 10/11/23 Range/Units 08:46 Total Bilirubin 0.5 (0.2-1.0) mg/dl AST 34 (13-39) U/L ALT 16 (7-52) U/L Alkaline Phosphatase 121 H (34-104) U/L Albumin 3.5 (3.4-5.0) gm/dl Medications Administered Home Medications Medication Instructions Recorded Confirmed Last Taken montelukast 10 mg tablet 10 mg PO PM 04/08/19 10/09/23 08/21/23 ferrous sulfate 325 mg (65 mg 325 mg PO QAM 06/03/20 10/09/23 08/22/23 iron) tablet atorvastatin 20 mg tablet 20 mg PO QAM 11/26/21 10/09/23 08/22/23 cholecalciferol (vitamin D3) 50 100 mcg PO QAM 11/26/21 10/09/23 08/22/23 mcg (2,000 unit) capsule (Vitamin D3) levalbuterol tartrate 45 1 puff inhalation Q4 PRN Shortness 08/07/22 10/09/23 Unknown mcg/actuation aerosol inhaler Of Breath (Xopenex HFA) sertraline 100 mg tablet 150 mg PO QAM 08/07/22 10/09/23 08/22/23 cyanocobalamin (vitamin B-12) 100 100 mcg PO QAM 11/07/22 10/09/23 08/22/23 mcg tablet (Vitamin B-12) folic acid 1 mg tablet 1 mg PO QAM 11/07/22 10/09/23 08/22/23 tiotropium 2.5 mcg-olodaterol 2.5 2 puff inhalation QAM 11/07/22 10/09/23 08/22/23 mcg/actuation mist for inhalation (Stiolto Respimat) torsemide 10 mg tablet 10 mg PO QAM 11/07/22 10/09/23 08/22/23 ipratropium bromide 21 mcg (0.03 2 spray intranasal DAILY PRN 12/06/22 10/09/23 08/14/23 %) nasal spray rhinorrhea pantoprazole 40 mg tablet,delayed 40 mg PO BID #60 tabs 12/09/22 10/09/23 08/22/23 release allopurinol 300 mg tablet 300 mg PO HS 08/14/23 10/09/23 10/09/23 lorazepam 1 mg tablet 1 mg PO HS PRN sleep/anxiety 08/14/23 10/09/23 Unknown levothyroxine 125 mcg capsule 125 mcg PO QAM 08/22/23 10/09/23 08/22/23 apixaban 2.5 mg tablet (Eliquis) 2.5 mg PO AMHS 10/09/23 10/09/23 Unknown Active Medications Generic Name Dose Route Start Last Admin Trade Name Freq PRN Reason Stop Dose Admin Allopurinol 300 mg 10/10/23 21:00 10/10/23 20:25 Allopurinol 300 Mg Tab PO 11/09/23 20:59 300 mg HS JULIO CESAR Administration Apixaban 2.5 mg 10/10/23 09:00 02/17/24 08:27 Apixaban 2.5 Mg Tab PO 11/09/23 08:59 2.5 mg BID JULIO CESAR Administration Atorvastatin Calcium 20 mg 10/10/23 09:00 10/11/23 08:27 Atorvastatin 20 Mg Tab PO 11/09/23 08:59 20 mg QAM JULIO CESAR Administration Cyanocobalamin 100 mcg 10/10/23 09:00 10/11/23 08:28 Cyanocobalamin (B-12) 100 Mcg Tablet PO 11/09/23 08:59 100 mcg QAM JULIO CESAR Administration Ferrous Sulfate 325 mg 10/10/23 09:00 10/11/23 10:02 Ferrous Sulfate 325 Mg Tab PO 11/09/23 08:59 325 mg QAM JULIO CESAR Administration Fidaxomicin 200 mg 10/10/23 09:00 10/11/23 08:26 Fidaxomicin 200 Mg Tab PO 10/20/23 08:59 200 mg BID JULIO CESAR Administration Folic Acid 1 mg 10/10/23 09:00 10/11/23 08:28 Folic Acid 1 Mg Tab PO 11/09/23 08:59 1 mg QAM JULIO CESAR Administration Ertapenem 500 mg/ Syringe 5 mls @ 2 mls/min 10/11/23 10:00 10/11/23 11:34 IV 10/21/23 09:59 2 mls/min Q24H JULIO CESAR Administration Protocol Insulin Aspart 0 units 10/10/23 07:30 10/11/23 17:42 Insulin Aspart Per Unit Charge SC 11/09/23 07:29 Not Given ACHS [facility] Lactobacillus Acidophilus 2 cap 10/10/23 09:00 10/11/23 08:27 Advanced Probiotic 1250 Mg Capsule PO 11/09/23 08:59 2 cap DAILY JULIO CESAR Administration Levothyroxine Sodium 125 mcg 10/10/23 06:30 10/11/23 05:36 Levothyroxine Sodium 125 Mcg Tablet PO 11/09/23 06:29 125 mcg DAILYBB JULIO CESAR Administration Melatonin 3 mg 10/11/23 02:19 10/11/23 02:39 Melatonin 3 Mg Tab PO 11/10/23 02:18 3 mg HS PRN Administration Sleep Montelukast Sodium 10 mg 10/10/23 21:00 10/10/23 20:25 Montelukast Sodium 10 Mg Tablet PO 11/09/23 20:59 10 mg PM JULIO CESAR Administration Ondansetron HCl 4 mg 10/10/23 00:57 10/11/23 10:01 Ondansetron Inj 2 Mg/Ml 2 Ml Vial IV 11/09/23 00:56 4 mg Q6H PRN Administration Nausea Pantoprazole Sodium 40 mg 10/10/23 09:00 10/11/23 10:01 Pantoprazole 40 Mg Tab PO 11/09/23 08:59 40 mg BID JULIO CESAR Administration Sertraline HCl 150 mg 10/10/23 09:00 10/11/23 08:28 Sertraline Hcl 50 Mg Tablet PO 11/09/23 08:59 150 mg QAM JULIO CESAR Administration Umeclidinium/Vilanterol 1 puffs 10/10/23 09:00 10/11/23 10:00 Umeclidinium/Vilanterol 62.5/25mcg 7 Puffs/Inhaler INH 11/09/23 08:59 1 puffs QAM JULIO CESAR Administration Vitamin D 100 mcg 10/10/23 09:00 10/11/23 08:28 Cholecalciferol 25 Mcg (1000 Units) Tab PO 11/09/23 08:59 100 mcg QAM JULIO CESAR Administration
--- NOTE | 2023-10-12 07:55 | Electrocardiogram Report ---
Test Reason : Blood Pressure : / mmHG Vent. Rate : 070 BPM Atrial Rate : 070 BPM P-R Int : 000 ms QRS Dur : 118 ms QT Int : 452 ms P-R-T Axes : 066 120 030 degrees QTc Int : 488 ms Ventricular-paced rhythm , dual chamber pacer Abnormal ECG When compared with ECG of 09-OCT-2023 17:23, Vent. rate has decreased BY 16 BPM Confirmed by Brian Leong ([id number]) on 10/12/2023 7:55:34 AM Referred By: REFERRED SELF Confirmed By:Brian Leong
[2023-10-12 08:27] LABS: Hematocrit (blood only) 26.8 % (37.0-47.0); Hemoglobin 8.5 g/dl (12.0-16.0); Mean Corpuscular Hemoglobin 30.2 pg (25.0-34.0); Mean Corpuscular Hgb Conc 31.7 g/dL (32.0-36.0); Mean Corpuscular Volume 95.4 fL (80.0-100.0); Mean Platelet Volume 10.3 fL (9.4-12.4); Platelet Count 171 K/uL (130-400); RDW Coefficient of Variation 16.5 % (11.5-14.5); RDW Standard Deviation 57.1 fL (36.4-46.3); Red Blood Count 2.81 M/uL (4.20-5.40); White Blood Count 7.41 K/ul (4.8-10.8)
[2023-10-12 08:44] LABS: BUN Creatinine Ratio 16.2 (10-20); Calcium 8.8 mg/dl (8.6-10.3); Creatinine Clr Calc Pharmacy 31.3 ml/min; Est GFR (African American) 41.6 ml/min; Est GFR (Non-African American) 35.9 ml/min; Phosphorus 3.6 mg/dl (2.5-4.9)
[2023-10-12] MEDS: METOPROLOL TARTRATE 25 MG TAB PO SCH ×2 (11:22→21:41)
--- NOTE | 2023-10-12 13:23 | Hospitalist Progress Note ---
Date of Service October 12, 2023 Assessment & Plan (1) Generalized weakness: Plan: Ms. Barakat is an 83-year-old female with past medically history significant for type 2 diabetes, diabetic retinopathy, CKD stage III, hypercholesterolemia, obstructive sleep apnea, moderate persistent asthma, paroxysmal atrial fibrillation, s/p watchman's device, history of mitral valve clip implantation, sick sinus syndrome s/p pacemaker, pulmonary hypertension, peripheral vascular disease, chronic diastolic CHF, angiodysplasia of colon, aneurysm of left carotid artery, severe tricuspid regurgitation, CAD , GERD, Mnire's disease, iron deficiency anemia, depression, history of endometrial cancer , TIA presented 10/09 with weakness and diarrhea. Patient on admission noted to have hgb 10, wbc 11.34, mild hyponatremia, TSH 10 iso recent illness/normal T4, baseline trop elevation 26.5, and mild LFT elevations consistent with prior. Renal function appears at baseline per trends since 2022. Per admitting hospitalist: "She was in the hospital in early August of this year with weakness and at the time she also found to have hemoglobin of 6.5 requiring 2 units of PRBCs. And also was treated for sinusitis with oral doxycycline. Anemia workup was done with peripheral smear which showed occasional teardrop cells thought to be related to chronic disease but myelodysplastic syndrome has not been ruled out and further hematology evaluation was recommended. She also received 5-day course of IV Venofer. Seen by GI and recommended conservative management at that time. She also seen by nephrology for TIFFANY on chronic disease. Symptoms improved with transfusion. Her sotalol dose was reduced to 40 mg daily due to renal insufficiency. Followed up with cardiology in first week of September and seems she underwent follow-up BRENDAN for a Watchman procedure in August and was noted large thrombus on device. At that point her aspirin was discontinued she was started Eliquis 2.5 mg twice daily. There is a plan to repeat echo to be completed near future. And also plan for endoscopy and colonoscopy in near future. After last admission in August patient was in rehab. As per son after coming from home she is been gradually getting weak. She ambulates with a rollator walker. Lately having diarrhea. Not able to eat much. Poor appetite. Recently she fell from the commode but did not totally fall down. Yesterday in the parking lot of [employer] she almost fell down. Because of diarrhea and weakness son brought her back to the hospital today." Patient endorses mild subjective improvement. CT AB P yesterday revealed acute diverticulitis Initially started on cipro/flagyl, but prolonged QTc and SVT noted overnight. Transitioned to ertapenem. Noted to have bouts of SVT while ambulating. Discontinued off of sotalol recently, no other rate control in place #SVT #Paroxysmal atrial fibrillation s/p Watchman device #History of mitral valve clip implantation Echo in August showed large thrombus on Watchman device On Eliquis Currently not on any rate controlling medications Following with cardiology Recently taken off of Sotalol in 08/2023 -Starting metoprolol 12.5mg BID Cards consult #Generalized weakness likely related to ongoing diarrhea, poor nutrition -Treat infection below -PT/OT #Acute abdominal pain #Acute sigmoid diverticulitis #Acute Diarrhea #Enteroaggreative E Coli #C. Diff gene positive Back positive for c diff gene and EAEC -Complete course of Dificid, 10/04 -Encourage PO Advance diet--low fiber -Ertapenem q24, advance diet as symptoms improve -BMP in am #Chronic JALEEL Anemia Iron deficiency anemia Hgb down to 8.6 (baseline 7-8), likely hemoconcentrated from diarrhea/dehydration as all cell lines notably decreased Last admission she received 2 units of PRBCs and IV Venofer There is a plan for OP EGD and colonoscopy Patient follows with Dr. 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 sheer stress 2/ clip n place Hemoccult likely false positive given chronic iron supplementation #Abnormal liver enzymes Chronic mild elevation in AST, ALP No RUQ tenderness, will assess in CT AP #Chronic Troponin elevation -Plateaued, stable elevation in 20s CTM #Sick sinus syndrome #S/p pacemaker Monitor on tele #CKD stage IV GFR consistently in ~mid 29s since 11/2022 Creatinine was around 1.7-1.8 last admission Holding torsemide, resume likely in coming days Continue gentle fluids Follow BMP #Elevated troponin, likely demand iso dehydration, poor renal baseline Will follow serial enzymes-downtrended #abnormal UA No further treatment, asymptomatic #Hypothyroidism Continue home Synthroid TSH 10, normal T4 1.2 Needs follow-up OP outside of acute illness #Diabetes Mellitus Type II, with CKD Not on meds, A1C 10/10 6.1% Insulin sliding scale #Hyperlipidemia On statin #GERD On Protonix #Chronic Heart failure with preserved ejection fraction Holding torsemide Monitor for volume overload, resume diuretic as soon as possible #Depression On Zoloft #Asthma Stable Continue home inhalers DVT prophylaxis Eliquis Disposition Med/tele Full code, per prior hospitalist " if there is chance of recovery" Admission and Anticipated Discharge Date Admission Date: October 09, 2023 Subjective NAEO; doing much better over all, abdominal pain near resolved Tolerating diet notes weakness with ambulation, noted to be SVT on monitor while walking Physical Exam Constitutional: WD/WN, vitals as above Cardiovascular: RRR, no murmur, no edema Gastrointestinal (Abdomen): normal bowel sounds, soft, nontender, no hep atosplenomegaly no pain on palpation in RLQ Results & Data Results & Data Vital Signs (Past 12 Hours) Vital Signs Temp Pulse Pulse Resp BP Pulse Ox O2 Del Method 10/12/23 10:44 36.4 C L 70 18 118/68 93 Room Air 10/12/23 07:34 36.4 C L 82 18 119/60 92 Room Air 10/12/23 06:57 84 10/12/23 02:03 36.4 C L 83 16 110/51 L 88 L Room Air Laboratory Results Short CBC 10/12/23 Range/Units 07:56 WBC 7.41 (4.8-10.8) K/ul Hgb 8.5 L (12.0-16.0) g/dl Hct 26.8 L (37.0-47.0) % Plt Count 171 (130-400) K/uL BMP 10/12/23 07:56 Sodium 137 Potassium 4.0 Chloride 108 H Carbon Dioxide 22 BUN 22 Creatinine 1.36 H Glucose 97 Calcium 8.8 Medications Administered Home Medications Medication Instructions Recorded Confirmed Last Taken montelukast 10 mg tablet 10 mg PO PM 04/08/19 10/09/23 08/21/23 ferrous sulfate 325 mg (65 mg 325 mg PO QAM 06/03/20 10/09/23 08/22/23 iron) tablet atorvastatin 20 mg tablet 20 mg PO QAM 11/26/21 10/09/23 08/22/23 cholecalciferol (vitamin D3) 50 100 mcg PO QAM 11/26/21 10/09/23 08/22/23 mcg (2,000 unit) capsule (Vitamin D3) levalbuterol tartrate 45 1 puff inhalation Q4 PRN Shortness 08/07/22 10/09/23 Unknown mcg/actuation aerosol inhaler Of Breath (Xopenex HFA) sertraline 100 mg tablet 150 mg PO QAM 08/07/22 10/09/23 08/22/23 cyanocobalamin (vitamin B-12) 100 100 mcg PO QAM 11/07/22 10/09/23 08/22/23 mcg tablet (Vitamin B-12) folic acid 1 mg tablet 1 mg PO QAM 11/07/22 10/09/23 08/22/23 tiotropium 2.5 mcg-olodaterol 2.5 2 puff inhalation QAM 11/07/22 10/09/23 08/22/23 mcg/actuation mist for inhalation (Stiolto Respimat) torsemide 10 mg tablet 10 mg PO QAM 11/07/22 10/09/23 08/22/23 ipratropium bromide 21 mcg (0.03 2 spray intranasal DAILY PRN 12/06/22 10/09/23 08/14/23 %) nasal spray rhinorrhea pantoprazole 40 mg tablet,delayed 40 mg PO BID #60 tabs 12/09/22 10/09/23 08/22/23 release allopurinol 300 mg tablet 300 mg PO HS 08/14/23 10/09/23 10/09/23 lorazepam 1 mg tablet 1 mg PO HS PRN sleep/anxiety 08/14/23 10/09/23 Unknown levothyroxine 125 mcg capsule 125 mcg PO QAM 08/22/23 10/09/23 08/22/23 apixaban 2.5 mg tablet (Eliquis) 2.5 mg PO AMHS 10/09/23 10/09/23 Unknown Active Medications Generic Name Dose Route Start Last Admin Trade Name Freq PRN Reason Stop Dose Admin Allopurinol 300 mg 10/10/23 21:00 10/11/23 21:40 Allopurinol 300 Mg Tab PO 11/09/23 20:59 300 mg HS JULIO CESAR Administration Apixaban 2.5 mg 10/10/23 09:00 10/12/23 08:49 Apixaban 2.5 Mg Tab PO 11/09/23 08:59 2.5 mg BID JULIO CESAR Administration Atorvastatin Calcium 20 mg 10/10/23 09:00 10/12/23 08:49 Atorvastatin 20 Mg Tab PO 11/09/23 08:59 20 mg QAM JULIO CESAR Administration Cyanocobalamin 100 mcg 10/10/23 09:00 10/12/23 08:48 Cyanocobalamin (B-12) 100 Mcg Tablet PO 11/09/23 08:59 100 mcg QAM JULIO CESAR Administration Ferrous Sulfate 325 mg 10/10/23 09:00 10/12/23 08:47 Ferrous Sulfate 325 Mg Tab PO 11/09/23 08:59 325 mg QAM JULIO CESAR Administration Fidaxomicin 200 mg 10/10/23 09:00 10/12/23 09:41 Fidaxomicin 200 Mg Tab PO 10/20/23 08:59 200 mg BID JULIO CESAR Administration Folic Acid 1 mg 10/10/23 09:00 10/12/23 08:50 Folic Acid 1 Mg Tab PO 11/09/23 08:59 1 mg QAM JULIO CESAR Administration Ertapenem 500 mg/ Syringe 5 mls @ 2 mls/min 10/11/23 10:00 10/12/23 08:45 IV 10/21/23 09:59 2 mls/min Q24H JULIO CESAR Administration Protocol Insulin Aspart 0 units 10/10/23 07:30 10/12/23 08:28 Insulin Aspart Per Unit Charge SC 11/09/23 07:29 Not Given ACHS JULIO CESAR Lactobacillus Acidophilus 2 cap 10/10/23 09:00 10/12/23 08:45 Advanced Probiotic 1250 Mg Capsule PO 11/09/23 08:59 2 cap DAILY JULIO CESAR Administration Levothyroxine Sodium 125 mcg 10/10/23 06:30 10/12/23 05:49 Levothyroxine Sodium 125 Mcg Tablet PO 11/09/23 06:29 125 mcg DAILYBB JULIO CESAR Administration Melatonin 3 mg 10/11/23 02:19 10/11/23 21:39 Melatonin 3 Mg Tab PO 11/10/23 02:18 3 mg HS PRN Administration Sleep Metoprolol Tartrate 12.5 mg 10/12/23 09:45 10/12/23 11:22 Metoprolol Tartrate 25 Mg Tab PO 11/11/23 09:44 12.5 mg BID JULIO CESAR Administration Montelukast Sodium 10 mg 10/10/23 21:00 10/11/23 21:39 Montelukast Sodium 10 Mg Tablet PO 11/09/23 20:59 10 mg PM JULIO CESAR Administration Ondansetron HCl 4 mg 10/10/23 00:57 10/11/23 10:01 Ondansetron Inj 2 Mg/Ml 2 Ml Vial IV 11/09/23 00:56 4 mg Q6H PRN Administration Nausea Pantoprazole Sodium 40 mg 10/10/23 09:00 10/12/23 08:47 Pantoprazole 40 Mg Tab PO 11/09/23 08:59 40 mg BID JULIO CESAR Administration Sertraline HCl 150 mg 10/10/23 09:00 10/12/23 08:47 Sertraline Hcl 50 Mg Tablet PO 11/09/23 08:59 150 mg QAM JULIO CESAR Administration Umeclidinium/Vilanterol 1 puffs 10/10/23 09:00 10/12/23 08:50 Umeclidinium/Vilanterol 62.5/25mcg 7 Puffs/Inhaler INH 11/09/23 08:59 1 puffs QAM JULIO CESAR Administration Vitamin D 100 mcg 10/10/23 09:00 10/12/23 08:47 Cholecalciferol 25 Mcg (1000 Units) Tab PO 11/09/23 08:59 100 mcg QAM JULIO CESAR Administration
--- NOTE | 2023-10-12 14:52 | Cardiology Consultation ---
Date of Consultation October 12, 2023 Assessment & Plan (1) Presence of Watchman left atrial appendage closure device: * Continue Eliquis 2.5 mg twice daily. Follow-up BRENDAN already planned at [place]. (2) Paroxysmal atrial fibrillation: * Longstanding history of paroxysmal atrial fibrillation. Has dual-chamber permanent pacemaker. * Sotalol recently discontinued due to renal insufficiency. Transition to metoprolol. Increased dose of metoprolol tartrate to 25 mg twice daily next dose 10/12/2023 at 2100. * Most recent EKG revealed stable QT interval. EKG has been interpreted in keeping with ventricular paced QRS complex in mind which will increase the QT interval. Agree however with avoiding ciprofloxacin if possible. History of Present Illness Attending Physician: Roxanne Gibbs MD History of Present Illness Mrs Barakat is an 83-year-old female seen in cardiology consultation per the request of Dr. Gibbs for medication advice given the patient's history of symptomatic paroxysmal atrial fibrillation with recent discontinuation of sotalol due to concerns of renal insufficiency. Patient presents this hospital stay with progressive generalized weakness in her legs and a fall. She also has had intermittent abdominal discomfort and diarrhea and has been found to have sigmoid diverticulitis prompting initial treatment with ciprofloxacin and metronidazole. When EKG revealed a QT interval of around 500 ms and therefore ciprofloxacin discontinued in the meantime and she is now on ertapenem. She has also been found to have C. difficile colitis. Telemetry reveals predominant rhythm of sinus rhythm however patient had a brief episode of atrial fibrillation with rapid ventricular response 8030 a.m. on 10/12/2023 spontaneous conversion to sinus rhythm. Patient states that she did not feel anything at that time, but notes that historically she has not sensed when she was in atrial fibrillation. The patient underwent percutaneous mitral valve clip at [facility] in February,. She has a history of paroxysmal atrial fibrillation and history of TIA events in the past. She previously had been on Eliquis but has had problems with recurrent gastrointestinal bleeding. A Watchman device was [place] [facility] and she was discharged on aspirin and clopidogrel. She was readmitted to [facility] with recurrent anemia, hemoglobin as low as 6.5 on 08/23/2023 prompting transfusion of packed red blood cells. She was transitioned to aspirin monotherapy. A transesophageal echocardiogram was performed as per follow-up routine post Watchman device on 09/15/2023 at [facility] revealing a large, protruding thrombus on the Watchman device with length of thrombus of 2.9 cm. Aspirin therefore discontinued and she has been since placed on Eliquis 2.5 mg twice daily. She had been followed by our cardiology group during that admission due to renal insufficiency, Dr. Chavarria had recommended reducing her sotalol to 40 mg daily which was her discharge dose at the conclusion of that hospital stay in August,. More recently however on 09/29/2019 for repeat blood work as an outpatient revealed creatinine of 1.8, EGFR of 28, and per telephone advice provided to the patient on 09/30/2023 she was counseled to discontinue the sotalol completely due to renal insufficiency with GFR less than 40 mL/min/m. History: 1. Chronic diastolic CHF secondary to valvular insufficiency Moderate to severe MR and severe TR, status post MitraClip XT W and mitral clip XT, 03/06/2023 Echo Jul 2023 - Mild MR with mitral clip; 2. S/P Watchman device implantation on 07/31/23 at [facility] - discharged on ASA and Plavix -Follow-up transesophageal echocardiogram at [facility], 09/15/2023 revealed 2.9 cm thrombus on the atrial surface of the Watchman device prompting discontinuation of antiplatelet therapy and initiation of Eliquis 2.5 mg twice daily 3.Severe pulmonary hypertension, multifactorial including valvular heart disease also following with Pulmonary 3.History of sick sinus syndrome with recurrent syncope, status post LINQ, now status post dual chamber permanent pacemaker 07/2022 4.Paroxysmal atrial fibrillation, on sotalol. a.[id number] score of 7 (age 2, female, CHF,DM, TIA 2)- Not on AC due to severe GIB in the past 5.Hx of TIA 6.Hypertension 7.Aneurysm of the left carotid artery 8.AV malformations 9.CKD stage 3 Allergies Allergy/AdvReac Type Severity Reaction Status Date / Time Sulfa (Sulfonamide Allergy Severe Severe Verified 10/09/23 21:19 Antibiotics) rxn: rash and hives celecoxib Allergy Intermediate Rash/Hives/ Verified 10/09/23 21:19 Itching. cephalexin Allergy Intermediate Rash/Hives/ Verified 10/09/23 21:19 Itching. furosemide Allergy Intermediate Rash/Hives/ Verified 10/09/23 21:19 Itching. gabapentin Allergy Intermediate Rash/Hives/ Verified 10/09/23 21:19 Itching. pregabalin Allergy Intermediate Rash/Hives/ Verified 10/09/23 21:19 Itching. meclizine Allergy Unknown Unknown Verified 10/09/23 21:19 methylprednisolone Allergy Unknown Rash/Hives/ Verified 10/09/23 21:19 Itching. Penicillins Allergy Unknown Unknown. Verified 10/09/23 21:19 prednisone Allergy Unknown Rash/Hives/ Verified 10/09/23 21:19 Itching. vancomycin Allergy Unknown Jodi Verified 10/09/23 21:19 syn. . nickel Allergy Unknown Verified 10/09/23 21:19 dexamethasone AdvReac Intermediate Steroid Verified 10/09/23 21:19 psychosis. Home Medications Medication Instructions Recorded Confirmed Type montelukast 10 mg tablet 10 mg PO PM 04/08/19 10/09/23 History ferrous sulfate 325 mg (65 mg 325 mg PO QAM 06/03/20 10/09/23 History iron) tablet atorvastatin 20 mg tablet 20 mg PO QAM 11/26/21 10/09/23 History cholecalciferol (vitamin D3) 50 100 mcg PO QAM 11/26/21 10/09/23 History mcg (2,000 unit) capsule (Vitamin D3) levalbuterol tartrate 45 1 puff inhalation Q4 PRN Shortness 08/07/22 10/09/23 History mcg/actuation aerosol inhaler Of Breath (Xopenex HFA) sertraline 100 mg tablet 150 mg PO QAM 08/07/22 10/09/23 History cyanocobalamin (vitamin B-12) 100 100 mcg PO QAM 11/07/22 10/09/23 History mcg tablet (Vitamin B-12) folic acid 1 mg tablet 1 mg PO QAM 11/07/22 10/09/23 History tiotropium 2.5 mcg-olodaterol 2.5 2 puff inhalation QAM 11/07/22 10/09/23 History mcg/actuation mist for inhalation (Stiolto Respimat) torsemide 10 mg tablet 10 mg PO QAM 11/07/22 10/09/23 History ipratropium bromide 21 mcg (0.03 2 spray intranasal DAILY PRN 12/06/22 10/09/23 History %) nasal spray rhinorrhea pantoprazole 40 mg tablet,delayed 40 mg PO BID #60 tabs 12/09/22 10/09/23 Rx release allopurinol 300 mg tablet 300 mg PO HS 08/14/23 10/09/23 History lorazepam 1 mg tablet 1 mg PO HS PRN sleep/anxiety 08/14/23 10/09/23 History levothyroxine 125 mcg capsule 125 mcg PO QAM 08/22/23 10/09/23 History apixaban 2.5 mg tablet (Eliquis) 2.5 mg PO AMHS 10/09/23 10/09/23 History Patient History Medical History SSS (sick sinus syndrome) Chronic diastolic (congestive) heart failure TIA (transient ischemic attack) Nausea Leukocytosis Near syncope Hypotension Dehydration TIFFANY (acute kidney injury) Near syncope Elevated brain natriuretic peptide (BNP) level Pneumonia Atrial flutter Carotid artery aneurysm Prolonged QT interval Atrial fibrillation with RVR DM type 2 (diabetes mellitus, type 2) History of tobacco abuse Encounter for pre-operative examination Cholelithiasis Cholecystitis Chest pain at rest Pulmonary emphysema Osteoarthritis of right knee HTN (hypertension) RADHA (obstructive sleep apnea) Atrial fibrillation and flutter CKD (chronic kidney disease), stage III Meniere disease Depression Hypothyroidism Asthma, moderate persistent Surgical History History of hysterectomy History of cholecystectomy History of repair of left rotator cuff Hx of neck surgery H/O sinus surgery History of laminectomy Family History Father Diabetes Social History Smoking Status: Never smoker Tobacco Type: Cigarettes packs per day: 1.5; Cigarettes Per Day: 30; Second Hand Exposure: No; Do You Dip or Chew Tobacco: No; Hx Alcohol Use: No Hx Substance Use: No Preferred Language: [place] Islander Communication Ability: Effective 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 Beliefs That Will Affect Care: None marital status: Current Living Situation: Spouse Other Information That Helps Us Care for You: No Feels Safe at Home: Yes Safety Concerns: Feels Safe At This Time Assistive Devices: Oxygen - at Night and Walker Review of Systems Review of Systems: All systems reviewed & are unremarkable except as noted in HPI & below Physical Exam Constitutional: WD/WN, vitals as above Respiratory: normal respiratory effort, lungs clear to auscultation Cardiovascular: RRR, no murmur, no edema Gastrointestinal (Abdomen): normal bowel sounds, soft, nontender, no hepatosplenomegaly Neurologic: PERRL, EOMI, accommodation nl, no face palsy, no dysarthria Results & Data Vital Signs (Past 12 Hours) Vital Signs Temp Pulse Pulse Resp BP Pulse Ox O2 Del Method 10/12/23 10:44 36.4 C L 70 18 118/68 93 Room Air 10/12/23 07:34 36.4 C L 82 18 119/60 92 Room Air 10/12/23 06:57 84 Laboratory Results CBC 10/12/23 Range/Units 07:56 WBC 7.41 (4.8-10.8) K/ul RBC 2.81 L (4.20-5.40) M/uL Hgb 8.5 L (12.0-16.0) g/dl Hct 26.8 L (37.0-47.0) % Plt Count 171 (130-400) K/uL Comprehensive Metabolic Panel 10/12/23 Range/Units 07:56 Sodium 137 (136-145) mmol/L Potassium 4.0 (3.5-5.1) mmol/L Chloride 108 H (98-107) mmol/L Carbon Dioxide 22 (21-32) mmol/L BUN 22 (6-23) mg/dl Creatinine 1.36 H (0.6-1.2) mg/dl Glucose 97 (70-99(Fasting)) mg/dl Calcium 8.8 (8.6-10.3) mg/dl Intake and Output 10/12/23 10/12/23 10/12/23 06:59 14:59 22:59 Intake Total 275 / 885 360 / 360 Balance 275 / 884 360 / 360 Intake: Oral 275 / 885 360 / 360 Other: # Unmeasured Voids 1 2 Weight 72.7 kg Diagnostic Findings EKG performed 10/09/2023 at 1723 and interpret independently: Atrial sensed, ventricular paced QRS complexes 86 bpm, corrected QT interval 507 ms. EKG performed 10/11/2023 at 10:13 AM: Sinus rhythm with ventricular pacing, corrected QT interval 488 ms.
--- NOTE | 2023-10-13 08:39 | Cardiology Progress Note ---
Date of Service October 13, 2023 Assessment & Plan (1) Presence of Watchman left atrial appendage closure device: Plan: * Continue Eliquis 2.5 mg twice daily. Follow-up BRENDAN already planned at [place]. (2) Paroxysmal atrial fibrillation: Plan: * Longstanding history of paroxysmal atrial fibrillation. Has dual-chamber permanent pacemaker. * Sotalol recently discontinued due to renal insufficiency. Transitioned to metoprolol tartrate with increased dose to 25 mg twice daily, 10/12/2023. * Discontinue metoprolol tartrate in favor of metoprolol succinate 25 mg BID, today--10/13/2023. * Most recent EKG revealed stable QT interval. EKG has been interpreted in keeping with ventricular paced QRS complex in mind which will increase the QT interval. Agree however with avoiding ciprofloxacin if possible. Plan Case discussed with Dr. Snowden. Further recommendations pending his assessment. I spent a total of 30 minutes on the date of service in preparation, delivery, and documentation of the care provided to the patient excluding any time spent in the performance of separately billed services. JESS Ny Department of Cardiology, [facility] This chart was completed in part utilizing Speech Voice Recognition Software. Grammatical errors, random word insertions, pronoun errors, and incomplete se ntences are an occasional consequence of this system due to software limitations, ambient noise, and hardware issues. Any formal questions or concerns about the content, text, or information contained within the body of this dictation should be directly addressed to the provider for clarification. Admission and Anticipated Discharge Date Admission Date: October 09, 2023 Supervising Physician Co-Signing Physician Notes Attending attestation: Case reviewed with the advanced practitioner. I have personally performed a history and physical examination on the patient. I have reviewed the advanced practitioner's documentation on the date of service referenced in note, and I agree with, and take responsibility for the plan of care. Hossein Snowden, DO Subjective Medically complex 83-year-old female who presented to [facility] emergency department due to progressive weakness and a fall at the grocery store. She also has had intermittent abdominal discomfort and diarrhea and has been found to have sigmoid diverticulitis prompting initial treatment with ciprofloxacin and metronidazole. When EKG revealed a QT interval of around 500 ms and therefore ciprofloxacin discontinued in the meantime and she is now on ertapenem. She has also been found to have C. difficile colitis. Patient carries a history of paroxysmal atrial fibrillation with recent discontinuation of sotalol due to renal insufficiency (09/29/2023). Telemetry this admission revealed predominantly sinus rhythm with a brief episode of atrial fibrillation on 10/12/2023 at 8:30 AM with spontaneous conversion to sinus rhythm. She previously had been on Eliquis but has had problems with recurrent gastrointestinal bleeding. A Watchman device was placed in July, at [facility] and she was discharged on aspirin and clopidogrel. She was readmitted to [facility] with recurrent anemia, hemoglobin as low as 6.5 on 08/23/2023 prompting transfusion of packed red blood cells. She was transitioned to aspirin monotherapy. A transesophageal echocardiogram was performed as per follow-up routine post Watchman device on 09/15/[address] [facility] revealing a large, protruding thrombus on the Watchman device with length of thrombus of 2.9 cm. Aspirin therefore discontinued and she has been since placed on Eliquis 2.5 mg twice daily. She is currently maintained on Metoprolol tartrate 25 mg BID for rate control and anticoagulated on Eliquis 2.5 mg BID (dose reduced due to age and renal function). Upon entrance into the room patient resting comfortably in the chair. No acute distress. Denies any chest pain, shortness of breath, palpitations. No lightheadedness or dizziness. Continues to feel weak. Has not been ambulating much this admission. Tele: paced 60-70s Review of Systems Review of Systems: All systems reviewed & are unremarkable except as noted in HPI & below Physical Exam Constitutional: WD/WN, vitals as above Respiratory: normal respiratory effort, lungs clear to auscultation Cardiovascular: RRR, no murmur, no edema Chest (Breasts): Chest: + pacemaker Gastrointestinal (Abdomen): normal bowel sounds, soft, nontender, no hepatosplenomegaly Neurologic: PERRL, EOMI, accommodation nl, no face palsy, no dysarthria Results & Data Vital Signs (Past 12 Hours) Vital Signs Temp Pulse Pulse Resp BP Pulse Ox O2 Del Method 10/13/23 08:23 36.5 C 61 18 131/65 92 Room Air 10/13/23 03:08 36.6 C 62 18 109/64 95 Nasal Cannula 10/13/23 00:09 10/12/23 22:20 36.5 C 70 16 114/67 90 Room Air O2 Flow Rate 10/13/23 08:23 10/13/23 03:08 2 10/13/23 00:09 10/12/23 22:20 Laboratory Results CBC 10/13/23 Range/Units 09:12 WBC 8.23 (4.8-10.8) K/ul RBC 2.99 L (4.20-5.40) M/uL Hgb 9.1 L (12.0-16.0) g/dl Hct 29.2 L (37.0-47.0) % Plt Count 202 (130-400) K/uL Intake and Output 10/12/23 10/13/23 10/13/23 22:59 06:59 14:59 Intake Total 620 / 1100 120 / 1100 Output Total Balance 619 / 1099 120 / 1099 Intake: Oral 620 / 1100 120 / 1100 Output: # Bowel Movements Other: Weight 73 kg Weight Measurement Method Built in [facility]
[2023-10-13] MEDS: ERTAPENEM SODIUM 1,000 MG in SYRINGE 0 ML IV SCH (09:05)
[2023-10-13 09:48] LABS: Hematocrit (blood only) 29.2 % (37.0-47.0); Hemoglobin 9.1 g/dl (12.0-16.0); Mean Corpuscular Hemoglobin 30.4 pg (25.0-34.0); Mean Corpuscular Hgb Conc 31.2 g/dL (32.0-36.0); Mean Corpuscular Volume 97.7 fL (80.0-100.0); Platelet Count 202 K/uL (130-400); RDW Coefficient of Variation 16.8 % (11.5-14.5); RDW Standard Deviation 59.8 fL (36.4-46.3); Red Blood Count 2.99 M/uL (4.20-5.40); White Blood Count 8.23 K/ul (4.8-10.8)
[2023-10-13 10:07] LABS: BUN Creatinine Ratio 15.3 (10-20); Calcium 9.2 mg/dl (8.6-10.3); Creatinine Clr Calc Pharmacy 23.3 ml/min; Est GFR (African American) 29.1 ml/min; Est GFR (Non-African American) 25.1 ml/min; Magnesium 2.1 mg/dl (1.7-2.4); Potassium 4.4 mmol/L (3.5-5.1)
--- NOTE | 2023-10-13 15:38 | Hospitalist Progress Note ---
Date of Service October 13, 2023 Assessment & Plan (1) Generalized weakness: Plan: Ms. Barakat is an 83-year-old female with past medically history significant for type 2 diabetes, diabetic retinopathy, CKD stage III, hypercholesterolemia, obstructive sleep apnea, moderate persistent asthma, paroxysmal atrial fibrillation, s/p watchman's device, history of mitral valve clip implantation, sick sinus syndrome s/p pacemaker, pulmonary hypertension, peripheral vascular disease, chronic diastolic CHF, angiodysplasia of colon, aneurysm of left carotid artery, severe tricuspid regurgitation, CAD , GERD, Mnire's disease, iron deficiency anemia, depression, history of endometrial cancer , TIA presented 10/09 with weakness and diarrhea. Patient on admission noted to have hgb 10, wbc 11.34, mild hyponatremia, TSH 10 iso recent illness/normal T4, baseline trop elevation 26.5, and mild LFT elevations consistent with prior. Renal function appears at baseline per trends since 2022. Per admitting hospitalist: "She was in the hospital in early August of this year with weakness and at the time she also found to have hemoglobin of 6.5 requiring 2 units of PRBCs. And also was treated for sinusitis with oral doxycycline. Anemia workup was done with peripheral smear which showed occasional teardrop cells thought to be related to chronic disease but myelodysplastic syndrome has not been ruled out and further hematology evaluation was recommended. She also received 5-day course of IV Venofer. Seen by GI and recommended conservative management at that time. She also seen by nephrology for TIFFANY on chronic disease. Symptoms improved with transfusion. Her sotalol dose was reduced to 40 mg daily due to renal insufficiency. Followed up with cardiology in first week of September and seems she underwent follow-up BRENDAN for a Watchman procedure in August and was noted large thrombus on device. At that point her aspirin was discontinued she was started Eliquis 2.5 mg twice daily. There is a plan to repeat echo to be completed near future. And also plan for endoscopy and colonoscopy in near future. After last admission in August patient was in rehab. As per son after coming from home she is been gradually getting weak. She ambulates with a rollator walker. Lately having diarrhea. Not able to eat much. Poor appetite. Recently she fell from the commode but did not totally fall down. Yesterday in the parking lot of [employer] she almost fell down. Because of diarrhea and weakness son brought her back to the hospital today." Patient endorses mild subjective improvement. CT AB P yesterday revealed acute diverticulitis Initially started on cipro/flagyl, but prolonged QTc and SVT noted overnight. Transitioned to ertapenem. After review of allergies, determined with pharmacy that CTX/flagyl will be acceptable as patient has tolerated CTX previously, despite documented allergies of keflex. Noted to have bouts of SVT while ambulating. Discontinued off of sotalol recently, no other rate control in place. Place on metoprolol tartrate on 10/12 to add rate control given bouts of tachycardia. Patient tolerating low fiber diet without issue and pain free. Remaining concern is weakness. #SVT #Paroxysmal atrial fibrillation s/p Watchman device #History of mitral valve clip implantation Echo in August showed large thrombus on Watchman device On Eliquis Currently not on any rate controlling medications Following with cardiology Recently taken off of Sotalol in 08/2023 -Started metoprolol 12.5mg BID Cards consult -Transition to Metorpolol XL 25mg BID #Generalized weakness likely related to ongoing diarrhea, poor nutrition -Treat infection below -PT/OT #Acute abdominal pain #Acute sigmoid diverticulitis #Acute Diarrhea #Enteroaggreative E Coli #C. Diff gene positive Back positive for c diff gene and EAEC -Complete course of Dificid, 01/01 -Encourage PO Advance diet--low fiber -Ertapenem v80--vudfsjwprr to IV ctx/flagyl to complete course day 4 -BMP in am #Chronic JALEEL Anemia Iron deficiency anemia Hgb down to 8.6 (baseline 7-8), likely hemoconcentrated from diarrhea/dehydration as all cell lines notably decreased Last admission she received 2 units of PRBCs and IV Venofer There is a plan for OP EGD and colonoscopy Patient follows with Dr. 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 sheer stress 2/[address] Hemoccult likely false positive given chronic iron supplementation #Abnormal liver enzymes Chronic mild elevation in AST, ALP No RUQ tenderness, will assess in CT AP #Chronic Troponin elevation -Plateaued, stable elevation in 20s CTM #Sick sinus syndrome #S/p pacemaker Monitor on tele #CKD stage IV GFR consistently in ~mid 29s since 11/2022 Creatinine was around 1.7-1.8 last admission Holding torsemide, resume likely in coming days Continue gentle fluids Follow BMP #Elevated troponin, likely demand iso dehydration, poor renal baseline Will follow serial enzymes-downtrended #abnormal UA No further treatment, asymptomatic #Hypothyroidism Continue home Synthroid TSH 10, normal T4 1.2 Needs follow-up OP outside of acute illness #Diabetes Mellitus Type II, with CKD Not on meds, A1C 10/10 6.1% Insulin sliding scale #Hyperlipidemia On statin #GERD On Protonix #Chronic Heart failure with preserved ejection fraction Holding torsemide Monitor for volume overload, resume diuretic as soon as possible #Depression On Zoloft #Asthma Stable Continue home inhalers DVT prophylaxis Eliquis Disposition Med/tele Full code, per prior hospitalist " if there is chance of recovery" Dispo maybe tomorrow Admission and Anticipated Discharge Date Admission Date: October 09, 2023 Subjective Patient evaluated at bedside Reports eating well and denies any acute concerns outside of weakness with ambulation. Patient states abdomen pain is gone. Physical Exam Constitutional: WD/WN, vitals as above Respiratory: normal respiratory effort, lungs clear to auscultation Cardiovascular: RRR, no murmur, no edema Gastrointestinal (Abdomen): normal bowel sounds, soft, nontender, no hepatosplenomegaly Results & Data Results & Data Vital Signs (Past 12 Hours) Vital Signs Temp Pulse Resp BP BP Pulse Ox O2 Del Method 10/13/23 12:29 36.3 C L 64 18 115/71 97 Room Air 10/13/23 08:23 36.5 C 61 18 131/65 92 Room Air Laboratory Results Short CBC 10/13/23 Range/Units 09:12 WBC 8.23 (4.8-10.8) K/ul Hgb 9.1 L (12.0-16.0) g/dl Hct 29.2 L (37.0-47.0) % Plt Count 202 (130-400) K/uL BMP 10/13/23 09:12 Sodium 137 Potassium 4.4 Chloride 106 Carbon Dioxide 23 BUN 28 H Creatinine 1.83 H D Glucose 139 H Calcium 9.2 Medications Administered Home Medications Medication Instructions Recorded Confirmed Last Taken montelukast 10 mg tablet 10 mg PO PM 04/08/19 10/09/23 08/21/23 ferrous sulfate 325 mg (65 mg 325 mg PO QAM 06/03/20 10/09/23 08/22/23 iron) tablet atorvastatin 20 mg tablet 20 mg PO QAM 11/26/21 10/09/23 08/22/23 cholecalciferol (vitamin D3) 50 100 mcg PO QAM 11/26/21 10/09/23 08/22/23 mcg (2,000 unit) capsule (Vitamin D3) levalbuterol tartrate 45 1 puff inhalation Q4 PRN Shortness 08/07/22 10/09/23 Unknown mcg/actuation aerosol inhaler Of Breath (Xopenex HFA) sertraline 100 mg tablet 150 mg PO QAM 08/07/22 10/09/23 08/22/23 cyanocobalamin (vitamin B-12) 100 100 mcg PO QAM 11/07/22 10/09/23 08/22/23 mcg tablet (Vitamin B-12) folic acid 1 mg tablet 1 mg PO QAM 11/07/22 10/09/23 08/22/23 tiotropium 2.5 mcg-olodaterol 2.5 2 puff inhalation QAM 11/07/22 10/09/23 08/22/23 mcg/actuation mist for inhalation (Stiolto Respimat) torsemide 10 mg tablet 10 mg PO QAM 11/07/22 10/09/23 08/22/23 ipratropium bromide 21 mcg (0.03 2 spray intranasal DAILY PRN 12/06/22 10/09/23 08/14/23 %) nasal spray rhinorrhea pantoprazole 40 mg tablet,delayed 40 mg PO BID #60 tabs 12/09/22 10/09/23 08/22/23 release allopurinol 300 mg tablet 300 mg PO HS 08/14/23 10/09/23 10/09/23 lorazepam 1 mg tablet 1 mg PO HS PRN sleep/anxiety 08/14/23 10/09/23 Unknown levothyroxine 125 mcg capsule 125 mcg PO QAM 08/22/23 10/09/23 08/22/23 apixaban 2.5 mg tablet (Eliquis) 2.5 mg PO AMHS 10/09/23 10/09/23 Unknown Active Medications Generic Name Dose Route Start Last Admin Trade Name Freq PRN Reason Stop Dose Admin Allopurinol 300 mg 10/10/23 21:00 10/12/23 21:42 Allopurinol 300 Mg Tab PO 11/09/23 20:59 300 mg HS JULIO CESAR Administration Apixaban 2.5 mg 10/10/23 09:00 10/13/23 09:05 Apixaban 2.5 Mg Tab PO 11/09/23 08:59 2.5 mg BID JULIO CESAR Administration Atorvastatin Calcium 20 mg 10/10/23 09:00 10/13/23 09:05 Atorvastatin 20 Mg Tab PO 11/09/23 08:59 20 mg QAM JULIO CESAR Administration Cyanocobalamin 100 mcg 10/10/23 09:00 10/13/23 09:04 Cyanocobalamin (B-12) 100 Mcg Tablet PO 11/09/23 08:59 100 mcg QAM JULIO CESAR Administration Ferrous Sulfate 325 mg 10/10/23 09:00 10/13/23 09:04 Ferrous Sulfate 325 Mg Tab PO 11/09/23 08:59 325 mg QAM JULIO CESAR Administration Fidaxomicin 200 mg 10/10/23 09:00 10/13/23 09:05 Fidaxomicin 200 Mg Tab PO 10/20/23 08:59 200 mg BID JULIO CESAR Administration Folic Acid 1 mg 10/10/23 09:00 10/13/23 09:05 Folic Acid 1 Mg Tab PO 11/09/23 08:59 1 mg QAM JULIO CESAR Administration Insulin Aspart 0 units 10/10/23 07:30 10/13/23 12:26 Insulin Aspart Per Unit Charge SC 11/09/23 07:29 Not Given ACHS JULIO CESAR Lactobacillus Acidophilus 2 cap 10/10/23 09:00 10/13/23 09:04 Advanced Probiotic 1250 Mg Capsule PO 11/09/23 08:59 2 cap DAILY JULIO CESAR Administration Levothyroxine Sodium 125 mcg 10/10/23 06:30 10/13/23 05:46 Levothyroxine Sodium 125 Mcg Tablet PO 11/09/23 06:29 125 mcg DAILYBB JULIO CESAR Administration Melatonin 3 mg 10/11/23 02:19 10/12/23 21:41 Melatonin 3 Mg Tab PO 11/10/23 02:18 3 mg HS PRN Administration Sleep Montelukast Sodium 10 mg 10/10/23 21:00 10/12/23 21:42 Montelukast Sodium 10 Mg Tablet PO 11/09/23 20:59 10 mg PM JULIO CESAR Administration Ondansetron HCl 4 mg 10/10/23 00:57 10/11/23 10:01 Ondansetron Inj 2 Mg/Ml 2 Ml Vial IV 11/09/23 00:56 4 mg Q6H PRN Administration Nausea Pantoprazole Sodium 40 mg 10/10/23 09:00 10/13/23 09:05 Pantoprazole 40 Mg Tab PO 11/09/23 08:59 40 mg BID JULIO CESAR Administration Sertraline HCl 150 mg 10/10/23 09:00 10/13/23 09:05 Sertraline Hcl 50 Mg Tablet PO 11/09/23 08:59 150 mg QAM JULIO CESAR Administration Umeclidinium/Vilanterol 1 puffs 10/10/23 09:00 10/13/23 09:04 Umeclidinium/Vilanterol 62.5/25mcg 7 Puffs/Inhaler INH 11/09/23 08:59 1 puffs QAM JULIO CESAR Administration Vitamin D 100 mcg 10/10/23 09:00 10/13/23 09:04 Cholecalciferol 25 Mcg (1000 Units) Tab PO 11/09/23 08:59 100 mcg QAM JULIO CESAR Administration
--- NOTE | 2023-10-13 16:37 | Electrocardiogram Report ---
Test Reason : Blood Pressure : / mmHG Vent. Rate : 062 BPM Atrial Rate : 062 BPM P-R Int : 136 ms QRS Dur : 118 ms QT Int : 480 ms P-R-T Axes : 091 103 021 degrees QTc Int : 487 ms AV dual-paced rhythm with occasional ventricular-paced complexes occasional escape beats Abnormal ECG When compared with ECG of 11-OCT-2023 10:13, Vent. rate has decreased BY 8 BPM Confirmed by Elmer Dahl ([id number]) on 10/13/2023 4:37:34 PM Referred By: REFERRED SELF Confirmed By:Royce Dahl
[2023-10-13] MEDS: METOPROLOL SUCC 25MG EXT REL TAB PO SCH (20:52)
[2023-10-14] MEDS: metroNIDAZOLE 500 MG/100 ML BAG IV SCH (05:30)
--- NOTE | 2023-10-14 07:16 | Cardiology Progress Note ---
Date of Service October 14, 2023 Assessment & Plan (1) Presence of Watchman left atrial appendage closure device: Plan: * Large BOB thrombus-- Continue Eliquis 2.5 mg twice daily. Follow-up BRENDAN already planned at [place]. (2) Paroxysmal atrial fibrillation: Plan: * Longstanding history of paroxysmal atrial fibrillation. Has dual-chamber permanent pacemaker. * Sotalol recently discontinued due to renal insufficiency. Transitioned to metoprolol tartrate with increased dose to 25 mg twice daily, 10/12/2023. * Discontinue metoprolol tartrate in favor of metoprolol succinate 25 mg BID, 10/13/2023. * Most recent EKG revealed stable QT interval. EKG has been interpreted in keeping with ventricular paced QRS complex in mind which will increase the QT interval. Agree however with avoiding ciprofloxacin if possible. (3) Generalized weakness: Plan: Ongoing generalized weakness-- deconditioning likely contributing. Fall this morning in the bathroom due to weakness- no syncope. 1. STAT head CT ordered 2. Recommend ongoing PT/OT while inpatient. Patient may benefit from rehab at discharge. Will defer to primary team. Plan Case discussed with Dr. Snowden. I spent a total of 30 minutes on the date of service in preparation, delivery, and documentation of the care provided to the patient excluding any time spent in the performance of separately billed services. JESS Ny Department of Cardiology, [facility] This chart was completed in part utilizing Speech Voice Recognition Software. Grammatical errors, random word insertions, pronoun errors, and incomplete sentences are an occasional consequence of this system due to software limitations, ambient noise, and hardware issues. Any formal questions or concerns about the content, text, or information contained within the body of this dictation should be directly addressed to the provider for clarification. Admission and Anticipated Discharge Date Admission Date: October 09, 2023 Supervising Physician Co-Signing Physician Notes Attending attestation: Case reviewed with the advanced practitioner. I have personally performed a history and physical examination on the patient. I have reviewed the advanced practitioner's documentation on the date of service referenced in note, and I agree with, and take responsibility for the plan of c are. --CT of the brain/head negative for acute intracranial abnormality. Continue Eliquis. Hossein Snowden, Subjective Medically complex 83-year-old female who presented to [facility] emergency department due to progressive weakness and a fall at the grocery store. She also has had intermittent abdominal discomfort and diarrhea and has been found to have sigmoid diverticulitis prompting initial treatment with ciprofloxacin and metronidazole. When EKG revealed a QT interval of around 500 ms and therefore ciprofloxacin discontinued in the meantime and she is now on ertapenem. She has also been found to have C. difficile colitis. Patient carries a history of paroxysmal atrial fibrillation with recent discontinuation of sotalol due to renal insufficiency (09/29/2023). Telemetry this admission revealed predominantly sinus rhythm with a brief episode of atrial fibrillation on 10/12/2023 at 8:30 AM with spontaneous conversion to sinus rhythm. She previously had been on Eliquis but has had problems with recurrent gastrointestinal bleeding. A Watchman device was placed in July, at [facility] and she was discharged on aspirin and clopidogrel. She was readmitted to [facility] with recurrent anemia, hemoglobin as low as 6.5 on 08/23/2023 prompting transfusion of packed red blood cells. She was transitioned to aspirin monotherapy. A transesophageal echocardiogram was performed as per follow-up routine post Watchman device on 09/15/2023 at [facility] revealing a large, protruding thrombus on the Watchman device with length of thrombus of 2.9 cm. Aspirin therefore discontinued and she has been since placed on Eliquis 2.5 mg twice daily. 10/13/2023: Metoprolol tartrate 25 mg BID discontinued in favor of Metoprolol succinate 25 mg BID On Eliquis 2.5 mg BID for stroke prevention with AFIB (dose reduced due to age and renal function). 10/14/2023: Tele: Paced 60s Upon entrance into the room patient resting comfortably in the bed. No acute distress. Denies any chest pain, shortness of breath, palpitations. No lightheadedness or dizziness. Continues to feel weak-- had a fall this morning in the bathroom due to weakness. Hit head at that time. Has not been ambulating much this admission, but has worked with PT. Review of Systems Review of Systems: All systems reviewed & are unremarkable except as noted in HPI & below Physical Exam Constitutional: WD/WN, vitals as above Respiratory: normal respiratory effort, lungs clear to auscultation Cardiovascular: RRR, no murmur, no edema Chest (Breasts): Chest: + pacemaker Gastrointestinal (Abdomen): normal bowel sounds, soft, nontender, no hepatosplenomegaly Neurologic: PERRL, EOMI, accommodation nl, no face palsy, no dysarthria Results & Data Vital Signs (Past 12 Hours) Vital Signs Temp Pulse Pulse Resp BP Pulse Ox O2 Del Method 10/14/23 03:13 36.0 C L 60 16 123/58 L 91 Room Air 10/13/23 23:49 36.5 C 65 18 113/67 93 Room Air 10/13/23 22:00 61 10/13/23 19:53 36.2 C L 65 18 145/77 H 96 Room Air Laboratory Results CBC 10/13/23 10/14/23 Range/Units 09:12 07:12 WBC 8.23 8.43 (4.8-10.8) K/ul RBC 2.99 L 2.83 L (4.20-5.40) M/uL Hgb 9.1 L 8.8 L (12.0-16.0) g/dl Hct 29.2 L 26.9 L (37.0-47.0) % Plt Count 202 181 (130-400) K/uL Comprehensive Metabolic Panel 10/13/23 10/14/23 Range/Units 09:12 07:12 Sodium 137 137 (136-145) mmol/L Potassium 4.4 4.3 (3.5-5.1) mmol/L Chloride 106 108 H (98-107) mmol/L Carbon Dioxide 23 21 (21-32) mmol/L BUN 28 H 32 H (6-23) mg/dl Creatinine 1.83 H D 1.52 H D (0.6-1.2) mg/dl Glucose 139 H 106 H (70-99(Fasting)) mg/dl Calcium 9.2 9.0 (8.6-10.3) mg/dl Intake and Output 10/13/23 10/14/23 10/14/23 22:59 06:59 14:59 Intake Total 220 / 800 100 / 800 300 / 300 Balance 220 / 800 100 / 800 300 / 300 Intake: IV 100 / 100 300 / 300 Lactated Ringer's 250 ml @ 999 250 / 250 mls/hr IV .Q16M ONE Rx#: [id number] cefTRIAXone SODIUM 2,000 mg In 50 / 50 Dextrose 5 % Mini-B 50 ml @ 100 mls/hr IV QAM JULIO CESAR Rx#:[id number] metroNIDAZOLE 500 mg In 100 ml 100 / 100 @ 100 mls/hr IV Q8H JULIO CESAR Rx#: [id number] Oral 220 / 700 Other: # Unmeasured Voids 2 Weight 73 kg Weight Measurement Method Built in [facility]
[2023-10-14 08:04] LABS: Hematocrit (blood only) 26.9 % (37.0-47.0); Hemoglobin 8.8 g/dl (12.0-16.0); Mean Corpuscular Hemoglobin 31.1 pg (25.0-34.0); Mean Corpuscular Hgb Conc 32.7 g/dL (32.0-36.0); Mean Corpuscular Volume 95.1 fL (80.0-100.0); Mean Platelet Volume 10.5 fL (9.4-12.4); Platelet Count 181 K/uL (130-400); RDW Coefficient of Variation 16.6 % (11.5-14.5); RDW Standard Deviation 57.5 fL (36.4-46.3); Red Blood Count 2.83 M/uL (4.20-5.40); White Blood Count 8.43 K/ul (4.8-10.8)
[2023-10-14] MEDS: LACTATED RINGER'S 250 ML IV ONE (08:24)
[2023-10-14 08:33] LABS: BUN Creatinine Ratio 21.1 (10-20); Creatinine Clr Calc Pharmacy 28.1 ml/min; Est GFR (African American) 36.4 ml/min; Est GFR (Non-African American) 31.4 ml/min; Potassium 4.3 mmol/L (3.5-5.1)
[2023-10-14] MEDS: cefTRIAXone SODIUM 2,000 MG in DEXTROSE 5 % MINI-B 50 ML IV SCH (08:34)
--- NOTE | 2023-10-14 12:17 | Hospitalist Progress Note ---
Date of Service October 14, 2023 Assessment & Plan (1) Generalized weakness: Plan: Ms. Barakat is an 83-year-old female with past medically history significant for type 2 diabetes, diabetic retinopathy, CKD stage III, hypercholesterolemia, obstructive sleep apnea, moderate persistent asthma, paroxysmal atrial fibrillation, s/p watchman's device, history of mitral valve clip implantation, sick sinus syndrome s/p pacemaker, pulmonary hypertension, peripheral vascular disease, chronic diastolic CHF, angiodysplasia of colon, aneurysm of left carotid artery, severe tricuspid regurgitation, CAD , GERD, Mnire's disease, iron deficiency anemia, depression, history of endometrial cancer , TIA presented 10/09 with weakness and diarrhea. Patient on admission noted to have hgb 10, wbc 11.34, mild hyponatremia, TSH 10 iso recent illness/normal T4, baseline trop elevation 26.5, and mild LFT elevations consistent with prior. Renal function appears at baseline per trends since 2022. Per admitting hospitalist: "She was in the hospital in early August of this year with weakness and at the time she also found to have hemoglobin of 6.5 requiring 2 units of PRBCs. And also was treated for sinusitis with oral doxycycline. Anemia workup was done with peripheral smear which showed occasional teardrop cells thought to be related to chronic disease but myelodysplastic syndrome has not been ruled out and further hematology evaluation was recommended. She also received 5-day course of IV Venofer. Seen by GI and recommended conservative management at that time. She also seen by nephrology for TIFFANY on chronic disease. Symptoms improved with transfusion. Her sotalol dose was reduced to 40 mg daily due to renal insufficiency. Followed up with cardiology in first week of September and seems she underwent follow-up BRENDAN for a Watchman procedure in August and was noted large thrombus on device. At that point her aspirin was discontinued she was started Eliquis 2.5 mg twice daily. There is a plan to repeat echo to be completed near future. And also plan for endoscopy and colonoscopy in near future. After last admission in August patient was in rehab. As per son after coming from home she is been gradually getting weak. She ambulates with a rollator walker. Lately having diarrhea. Not able to eat much. Poor appetite. Recently she fell from the commode but did not totally fall down. Yesterday in the parking lot of [employer] she almost fell down. Because of diarrhea and weakness son brought her back to the hospital today." Patient endorses mild subjective improvement. CT AB P yesterday revealed acute diverticulitis Initially started on cipro/flagyl, but prolonged QTc and SVT noted overnight. Transitioned to ertapenem. After review of allergies, determined with pharmacy that CTX/flagyl will be acceptable as patient has tolerated CTX previously, despite documented allergies of keflex. Noted to have bouts of SVT while ambulating. Discontinued off of sotalol recently, no other rate control in place. Place on metoprolol tartrate on 10/12 to add rate control given bouts of tachycardia. Patient tolerating low fiber diet without issue and pain free. Remaining concern is weakness--which proved to result in unwitnessed fall over night on 10/13. Patient without LOC/dizziness/lightheadedness, just felt "knees" get weak. Family and patient express notable concern for falls and progress decline and wish to pursue rehab if possible. Referrals placed by case management. #Hypothyroidism Continue home Synthroid TSH 10, normal T4 1.2 Notably elevated to 9 on prior admits Will increase to 150mcg qam given elevated trends and weakness, needs OP follow up #SVT #Paroxysmal atrial fibrillation s/p Watchman device #History of mitral valve clip implantation Echo in August showed large thrombus on Watchman device On Eliquis Currently not on any rate controlling medications Following with cardiology Recently taken off of Sotalol in 08/2023 -Started metoprolol 12.5mg BID Cards consult -Continue to Metoprolol XL 25mg BID #Generalized weakness likely related to ongoing diarrhea, poor nutrition -Treat infection below -PT/OT--plan for rehab #Acute abdominal pain *resolving #Acute sigmoid diverticulitis *resolving #Acute Diarrhea *improving #Enteroaggreative E Coli #C. Diff gene positive Back positive for c diff gene and EAEC -Complete course of Dificid, 02/01 -Encourage PO Advance diet--low fiber -Ertapenem e77--[id number] to IV ctx/flagyl to complete course day -BMP in am -KUB given "not having normal BM" assess for stool burden if any/ overflow? #Chronic JALEEL Anemia Iron deficiency anemia Hgb down to 8.6 (baseline 7-8), likely hemoconcentrated from diarrhea/dehydration as all cell lines notably decreased Last admission she received 2 units of PRBCs and IV Venofer There is a plan for OP EGD and colonoscopy Patient follows with Dr. 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 sheer stress 2/[address] #Abnormal liver enzymes Chronic mild elevation in AST, ALP No RUQ tenderness, no cholecystitis, symptoms resolved #Chronic Troponin elevation -Plateaued, stable elevation in 20s CTM #Sick sinus syndrome #S/p pacemaker Monitor on tele #CKD stage IV GFR consistently in ~mid 29s since 11/2022 Creatinine was around 1.7-1.8 last admission Holding torsemide, resume likely in coming days Continue gentle fluids Follow BMP #Elevated troponin, likely demand iso dehydration, poor renal baseline Will follow serial enzymes-downtrended #abnormal UA No further treatment, asymptomatic #Diabetes Mellitus Type II, with CKD Not on meds, A1C 10/10 6.1% Insulin sliding scale #Hyperlipidemia On statin #GERD On Protonix #Chronic Heart failure with preserved ejection fraction Holding torsemide Monitor for volume overload, resume diuretic as soon as possible #Depression On Zoloft #Asthma Stable Continue home inhalers DVT prophylaxis Eliquis Disposition Med/tele Full code, per prior hospitalist " if there is chance of recovery" Dispo maybe tomorrow Admission and Anticipated Discharge Date Admission Date: October 09, 2023 Subjective Unwitnessed fall overnight, hit head--no LOC Patient states she stood from seated position off of toilet, was able to wash hands, but felt that in that period her knees were weak and she fell onto her bottom and slipped back, hitting her head on the ground She denies headache, LOC, slurred speech, and apparent deficits at this time Results & Data Results & Data Vital Signs (Past 12 Hours) Vital Signs Temp Pulse Resp BP Pulse Ox O2 Del Method 10/14/23 08:20 Room Air 10/14/23 08:00 83 18 147/69 H 98 Room Air 10/14/23 07:30 36.4 C L 67 18 118/67 91 Room Air 10/14/23 03:13 36.0 C L 60 16 123/58 L 91 Room Air Laboratory Results Short CBC 10/14/23 Range/Units 07:12 WBC 8.43 (4.8-10.8) K/ul Hgb 8.8 L (12.0-16.0) g/dl Hct 26.9 L (37.0-47.0) % Plt Count 181 (130-400) K/uL BMP 10/14/23 07:12 Sodium 137 Potassium 4.3 Chloride 108 H Carbon Dioxide 21 BUN 32 H Creatinine 1.52 H D Glucose 106 H Calcium 9.0 Medications Administered Home Medications Medication Instructions Recorded Confirmed Last Taken montelukast 10 mg tablet 10 mg PO PM 04/08/19 10/09/23 08/21/23 ferrous sulfate 325 mg (65 mg 325 mg PO QAM 06/03/20 10/09/23 08/22/23 iron) tablet atorvastatin 20 mg tablet 20 mg PO QAM 11/26/21 10/09/23 08/22/23 cholecalciferol (vitamin D3) 50 100 mcg PO QAM 11/26/21 10/09/23 08/22/23 mcg (2,000 unit) capsule (Vitamin D3) levalbuterol tartrate 45 1 puff inhalation Q4 PRN Shortness 08/07/22 10/09/23 Unknown mcg/actuation aerosol inhaler Of Breath (Xopenex HFA) sertraline 100 mg tablet 150 mg PO QAM 08/07/22 10/09/23 08/22/23 cyanocobalamin (vitamin B-12) 100 100 mcg PO QAM 11/07/22 10/09/23 08/22/23 mcg tablet (Vitamin B-12) folic acid 1 mg tablet 1 mg PO QAM 11/07/22 10/09/23 08/22/23 tiotropium 2.5 mcg-olodaterol 2.5 2 puff inhalation QA 11/07/22 10/09/23 08/22/23 mcg/actuation mist for inhalation (Stiolto Respimat) torsemide 10 mg tablet 10 mg PO QAM 11/07/22 10/09/23 08/22/23 ipratropium bromide 21 mcg (0.03 2 spray intranasal DAILY PRN 12/06/22 10/09/23 08/14/23 %) nasal spray rhinorrhea pantoprazole 40 mg tablet,delayed 40 mg PO BID #60 tabs 12/09/22 10/09/23 08/22/23 release allopurinol 300 mg tablet 300 mg PO HS 08/14/23 10/09/23 10/09/23 lorazepam 1 mg tablet 1 mg PO HS PRN sleep/anxiety 08/14/23 10/09/23 Unknown levothyroxine 125 mcg capsule 125 mcg PO QAM 08/22/23 10/09/23 08/22/23 apixaban 2.5 mg tablet (Eliquis) 2.5 mg PO AMHS 10/09/23 10/09/23 Unknown Active Medications Generic Name Dose Route Start Last Admin Trade Name Freq PRN Reason Stop Dose Admin Allopurinol 300 mg 10/10/23 21:00 10/13/23 20:52 Allopurinol 300 Mg Tab PO 11/09/23 20:59 300 mg HS JULIO CESAR Administration Apixaban 2.5 mg 10/10/23 09:00 10/14/23 08:21 Apixaban 2.5 Mg Tab PO 11/09/23 08:59 2.5 mg BID JULIO CESAR Administration Atorvastatin Calcium 20 mg 10/10/23 09:00 10/14/23 08:20 Atorvastatin 20 Mg Tab PO 11/09/23 08:59 20 mg QAM JULIO CESAR Administration Cyanocobalamin 100 mcg 10/10/23 09:00 10/14/23 08:21 Cyanocobalamin (B-12) 100 Mcg Tablet PO 11/09/23 08:59 100 mcg QAM JULIO CESAR Administration Ferrous Sulfate 325 mg 10/10/23 09:00 10/14/23 08:21 Ferrous Sulfate 325 Mg Tab PO 11/09/23 08:59 325 mg QAM JULIO CESAR Administration Fidaxomicin 200 mg 10/10/23 09:00 10/14/23 08:33 Fidaxomicin 200 Mg Tab PO 10/20/23 08:59 200 mg BID JULIO CESAR Administration Folic Acid 1 mg 10/10/23 09:00 10/14/23 08:20 Folic Acid 1 Mg Tab PO 11/09/23 08:59 1 mg QAM JULIO CESAR Administration Ceftriaxone Sodium 2,000 mg/ 50 mls @ 100 mls/hr 10/14/23 09:00 10/14/23 09:17 Dextrose IV 10/24/23 08:59 Infused QAM JULIO CESAR Infusion Metronidazole 500 mg in 100 mls @ 100 mls/hr 10/14/23 06:00 10/14/23 06:40 Flagyl IV 10/24/23 05:59 Infused Q8H JULIO CESAR Infusion Insulin Aspart 0 units 10/10/23 07:30 02/20/24 08:39 Insulin Aspart Per Unit Charge SC 11/09/23 07:29 Not Given ACHS JULIO CESAR Lactobacillus Acidophilus 2 cap 10/10/23 09:00 10/14/23 08:20 Advanced Probiotic 1250 Mg Capsule PO 11/09/23 08:59 2 cap DAILY JULIO CESAR Administration Levothyroxine Sodium 125 mcg 10/10/23 06:30 10/14/23 05:31 Levothyroxine Sodium 125 Mcg Tablet PO 11/09/23 06:29 125 mcg DAILYBB JULIO CESAR Administration Melatonin 3 mg 10/11/23 02:19 10/13/23 20:51 Melatonin 3 Mg Tab PO 11/10/23 02:18 3 mg HS PRN Administration Sleep Metoprolol Succinate 25 mg 10/13/23 21:00 10/14/23 08:20 Metoprolol Succ 25mg Ext Rel Tab PO 11/12/23 20:59 25 mg BID JULIO CESAR Administration Montelukast Sodium 10 mg 10/10/23 21:00 10/13/23 20:52 Montelukast Sodium 10 Mg Tablet PO 11/09/23 20:59 10 mg PM JULIO CESAR Administration Ondansetron HCl 4 mg 10/10/23 00:57 10/11/23 10:01 Ondansetron Inj 2 Mg/Ml 2 Ml Vial IV 11/09/23 00:56 4 mg Q6H PRN Administration Nausea Pantoprazole Sodium 40 mg 10/10/23 09:00 10/14/23 08:20 Pantoprazole 40 Mg Tab PO 11/09/23 08:59 40 mg BID JULIO CESAR Administration Sertraline HCl 150 mg 10/10/23 09:00 10/14/23 08:20 Sertraline Hcl 50 Mg Tablet PO 11/09/23 08:59 150 mg QAM JULIO CESAR Administration Umeclidinium/Vilanterol 1 puffs 10/10/23 09:00 10/14/23 08:34 Umeclidinium/Vilanterol 62.5/25mcg 7 Puffs/Inhaler INH 11/09/23 08:59 1 puffs QAM JULIO CESAR Administration Vitamin D 100 mcg 10/10/23 09:00 10/14/23 08:21 Cholecalciferol 25 Mcg (1000 Units) Tab PO 11/09/23 08:59 100 mcg QAM JULIO CESAR Administration
--- NOTE | 2023-10-14 12:37 | CT Scan Report ---
HEAD CT NONCONTRAST CT DOSE: 625.8 mGy.cm HISTORY: fall, head trauma, on anticoagulation TECHNIQUE: Multiaxial CT images of the head were performed without the use of intravenous contrast. A utomated exposure control was utilized for this study. A dose lowering technique was utilized adheri ng to the principles of ALARA. Comparison: Head CT 10/09/2023. Findings: Moderate mucosal thickening within the maxillary sinuses resulting in partial opacification . The mastoid air cells are clear. Partially visualized cervical fusion hardware. The calvarium and s kull base are intact. There is no mass, hematoma, midline shift, acute infarct. White matter hypodens ity is nonspecific but suggestive of microvascular ischemic change. The ventricles and sulci demonstr ate mild age-related involutional changes. Impression: No acute intracranial abnormality. ACT 112: Negative or not required by law. Electronically signed by: Jean-Claude Anderson M.D. 10/14/2023 12:35 PM
--- NOTE | 2023-10-14 14:29 | XRay Report ---
KUB HISTORY: abdominal cramping COMPARISON: Abdomen and pelvis CT 10/10/2023. FINDINGS: The bowel gas pattern is unremarkable. There are no dilated loops of small bowel to suggest an obstruction. No renal calculi. No ureteral calculi. No pneumoperitoneum or pneumatosis. Degenera tive changes and mild S-shaped scoliosis again noted within the lumbar spine. Vascular calcifications are noted. Prior cholecystectomy. The heart is enlarged. Pacemaker wires are partially visualized. P osterior decompression within the mid lumbar spine. IMPRESSION: 1. Nonobstructive bowel gas pattern. 2. The patient's known acute diverticulitis is better appreciated on the 10/10/[address] ACT 112: Negative or not required by law. Electronically signed by: Jean-Claude Anderson M.D. 10/14/2023 2:27 PM
[2023-10-14] MEDS: DOCUSATE SODIUM/SENNA 50/8.6MG TAB PO SCH (16:39)
[2023-10-14] MEDS: POLYETHYLENE (MIRALAX) 17 GM PACK PO SCH (16:39)
[2023-10-15 06:16] LABS: Hematocrit (blood only) 26.5 % (37.0-47.0); Hemoglobin 8.4 g/dl (12.0-16.0); Mean Corpuscular Hemoglobin 30.4 pg (25.0-34.0); Mean Corpuscular Hgb Conc 31.7 g/dL (32.0-36.0); Mean Platelet Volume 10.8 fL (9.4-12.4); Nucleated RBC # (auto) 0.02 K/uL (0.00-0.12); Nucleated RBC % (auto) 0.2 %; Platelet Count 187 K/uL (130-400); RDW Coefficient of Variation 16.7 % (11.5-14.5); RDW Standard Deviation 58.5 fL (36.4-46.3); Red Blood Count 2.76 M/uL (4.20-5.40); White Blood Count 9.11 K/ul (4.8-10.8)
[2023-10-15 06:21] LABS: BUN Creatinine Ratio 21.1 (10-20); Calcium 8.7 mg/dl (8.6-10.3); Creatinine Clr Calc Pharmacy 29.1 ml/min; Est GFR (African American) 37.9 ml/min; Est GFR (Non-African American) 32.7 ml/min; Potassium 4.2 mmol/L (3.5-5.1)
[2023-10-15] MEDS: LEVOTHYROXINE SODIUM 150 MCG TABLET PO SCH (06:42)
--- NOTE | 2023-10-15 07:25 | Cardiology Progress Note ---
Date of Service October 15, 2023 Assessment & Plan (1) Presence of Watchman left atrial appendage closure device: Plan: * Large BOB thrombus-- Continue Eliquis 2.5 mg twice daily. Follow-up BRENDAN already planned at [place]. (2) Paroxysmal atrial fibrillation: Plan: * Longstanding history of paroxysmal atrial fibrillation. Has dual-chamber permanent pacemaker. * Sotalol recently discontinued due to renal insufficiency. Transitioned to metoprolol tartrate with increased dose to 25 mg twice daily, 10/12/2023. * Discontinue metoprolol tartrate in favor of metoprolol succinate 25 mg BID, 10/13/2023. * Most recent EKG revealed stable QT interval. EKG has been interpreted in keeping with ventricular paced QRS complex in mind which will increase the QT interval. Agree however with avoiding ciprofloxacin if possible. (3) Generalized weakness: Plan: Ongoing generalized weakness-- deconditioning likely contributing. Fall this morning in the bathroom due to weakness- no syncope. CT of the head without bleed. 1. Recommend ongoing PT/OT while inpatient. Patient may benefit from rehab at discharge. Will defer to primary team. Plan Updated tammie's son while in the room on the telephone. Case discussed with Dr. Snowden. No further recommendations from a cardiology standpoint. I spent a total of 30 minutes on the date of service in preparation, delivery, and documentation of the care provided to the patient excluding any time spent in the performance of separately billed services. JESS Ny Department of Cardiology, [facility] This chart was completed in part utilizing Speech Voice Recognition Software. Grammatical errors, random word insertions, pronoun errors, and incomplete sentences are an occasional consequence of this system due to software limitations, ambient noise, and hardware issues. Any formal questions or concerns about the content, text, or information contained within the body of this dictation should be directly addressed to the provider for clarification. Admission and Anticipated Discharge Date Admission Date: October 09, 2023 Supervising Physician Co-Signing Physician Notes Attending attestation: Case reviewed with the advanced practitioner. I have personally performed a history and physical examination on the patient. I have reviewed the advanced practitioner's documentation on the date of service referenced in note, and I agree with, and take responsibility for the plan of care. Hossein Snowden, DO Subjective Medically complex 83-year-old female who presented to [facility] emergency department due to progressive weakness and a fall at the grocery store. She also has had intermittent abdominal discomfort and diarrhea and has been found to have sigmoid diverticulitis prompting initial treatment with ciprofloxacin and metronidazole. When EKG revealed a QT interval of around 500 ms and therefore ciprofloxacin discontinued in the meantime and she is now on ertapenem. She has also been found to have C. difficile colitis. Patient carries a history of paroxysmal atrial fibrillation with recent di scontinuation of sotalol due to renal insufficiency (09/29/2023). Telemetry this admission revealed predominantly sinus rhythm with a brief episode of atrial fibrillation on 10/12/2023 at 8:30 AM with spontaneous conversion to sinus rhythm. She previously had been on Eliquis but has had problems with recurrent gastrointestinal bleeding. [place] [facility] [place] discharged on aspirin and clopidogrel. She was readmitted to [facility] with recurrent anemia, hemoglobin as low as 6.5 on 08/23/2023 prompting transfusion of packed red blood cells. She was transitioned to aspirin monotherapy. A transesophageal echocardiogram was performed as per follow-up routine post Watchman device on 09/15/2023 at [facility] revealing a large, protruding thrombus on the Watchman device with length of thrombus of 2.9 cm. Aspirin therefore discontinued and she has been since placed on Eliquis 2.5 mg twice daily. 10/13/2023: Metoprolol tartrate 25 mg BID discontinued in favor of Metoprolol succinate 25 mg BID On Eliquis 2.5 mg BID for stroke prevention with AFIB (dose reduced due to age and renal function). 10/14/2023: Tele: Paced 60s No PAF seen. Fall in the bathroom secondary to leg weakness- hit head. CT of the head negative for bleed. 10/15/2023: Tele:sinus rhythm A- V sequential paced 60s, no PAF. Upon entrance into the room patient resting comfortably in the bed. No acute distress. Denies any chest pain, shortness of breath, palpitations. No lightheadedness or dizziness. No further episodes of falls. Continues to feel weak-- very concerns regarding her balance as she is the primary caregiver for her . Review of Systems Review of Systems: All systems reviewed & are unremarkable except as noted in HPI & below Gastrointestinal: + diarrhea/loose stools Physical Exam Constitutional: WD/WN, vitals as above Respiratory: normal respiratory effort, lungs clear to auscultation Cardiovascular: RRR, no murmur, no edema Chest (Breasts): Chest: + pacemaker Gastrointestinal (Abdomen): normal bowel sounds, soft, nontender, no hepatosplenomegaly Neurologic: PERRL, EOMI, accommodation nl, no face palsy, no dysarthria Results & Data Vital Signs (Past 12 Hours) Vital Signs Temp Pulse Pulse Resp BP Pulse Ox O2 Del Method 10/15/23 03:00 36.6 C 69 16 124/66 95 Room Air 10/14/23 23:03 36.7 C 60 18 116/61 91 Room Air 10/14/23 21:56 62 10/14/23 19:28 36.5 C 59 L 16 128/56 L 96 Room Air Laboratory Results CBC 10/15/23 Range/Units 05:29 WBC 9.11 (4.8-10.8) K/ul RBC 2.76 L (4.20-5.40) M/uL Hgb 8.4 L (12.0-16.0) g/dl Hct 26.5 L (37.0-47.0) % Plt Count 187 (130-400) K/uL Comprehensive Metabolic Panel 10/15/23 Range/Units 05:29 Sodium 135 L (136-145) mmol/L Potassium 4.2 (3.5-5.1) mmol/L Chloride 107 (98-107) mmol/L Carbon Dioxide 21 (21-32) mmol/L BUN 31 H (6-23) mg/dl Creatinine 1.47 H (0.6-1.2) mg/dl Glucose 132 H (70-99(Fasting)) mg/dl Calcium 8.7 (8.6-10.3) mg/dl Intake and Output 10/14/23 10/15/23 10/15/23 22:59 06:59 14:59 Intake Total 100 / 960 150 / 150 Output Total 2 / Balance 95 - 150 / 150 Intake: IV 100 / 500 150 / 150 cefTRIAXone SODIUM 2,000 mg In 50 / 50 Dextrose 5 % Mini-B 50 ml @ 100 mls/hr IV [facility] Rx#:[id number] metroNIDAZOLE 500 mg In 100 ml 100 / 200 100 / 100 @ 100 mls/hr IV Q8H [facility] Rx#: [id number] Output: # Bowel Movements 2 / 2 Other: # Unmeasured Voids 2 2 Weight 73.5 kg Weight Measurement Method Built in [facility]
--- NOTE | 2023-10-15 17:27 | Hospitalist Progress Note ---
Date of Service October 15, 2023 Assessment & Plan (1) Generalized weakness: Plan: per previous hospitalist notes with addendum: Ms. Barakat is an 83-year-old female with past medically history significant for type 2 diabetes, diabetic retinopathy, CKD stage III, hypercholesterolemia, obstructive sleep apnea, moderate persistent asthma, paroxysmal atrial fibrillation, s/p watchman's device, history of mitral valve clip implantation, sick sinus syndrome s/p pacemaker, pulmonary hypertension, peripheral vascular disease, chronic diastolic CHF, angiodysplasia of colon, aneurysm of left carotid artery, severe tricuspid regurgitation, CAD , GERD, Mnire's disease, iron deficiency anemia, depression, history of endometrial cancer , TIA presented 10/09 with weakness and diarrhea. Patient on admission noted to have hgb 10, wbc 11.34, mild hyponatremia, TSH 10 iso recent illness/normal T4, baseline trop elevation 26.5, and mild LFT elevations consistent with prior. Renal function appears at baseline per trends since 2022. Per admitting hospitalist: "She was in the hospital in early August of this year with weakness and at the time she also found to have hemoglobin of 6.5 requiring 2 units of PRBCs. And also was treated for sinusitis with oral doxycycline. Anemia workup was done with peripheral smear which showed occasional teardrop cells thought to be related to chronic disease but myelodysplastic syndrome has not been ruled out and further hematology evaluation was recommended. She also received 5-day course of IV Venofer. Seen by GI and recommended conservative management at that time. She also seen by nephrology for TIFFANY on chronic disease. Symptoms improved with transfusion. Her sotalol dose was reduced to 40 mg daily due to renal insufficiency. Followed up with cardiology in first week of September and seems she underwent follow-up BRENDAN for a Watchman procedure in August and was noted large thrombus on device. At that point her aspirin was discontinued she was started Eliquis 2.5 mg twice daily. There is a plan to repeat echo to be completed near future. And also plan for endoscopy and colonoscopy in near future. After last admission in August patient was in rehab. As per son after coming from home she is been gradually getting weak. She ambulates with a rollator walker. Lately having diarrhea. Not able to eat much. Poor appetite. Recently she fell from the commode but did not totally fall down. Yesterday in the parking lot of [employer] she almost fell down. Because of diarrhea and weakness son brought her back to the hospital today." Patient endorses mild subjective improvement. CT AB P yesterday revealed acute diverticulitis Initially started on cipro/flagyl, but prolonged QTc and SVT noted overnight. Transitioned to ertapenem. After review of allergies, determined with pharmacy t hat CTX/flagyl will be acceptable as patient has tolerated CTX previously, despite documented allergies of keflex. Noted to have bouts of SVT while ambulating. Discontinued off of sotalol recently, no other rate control in place. Place on metoprolol tartrate on 10/12 to add rate control given bouts of tachycardia. Patient tolerating low fiber diet without issue and pain free. Remaining concern is weakness--which proved to result in unwitnessed fall over night on 10/13. Patient without LOC/dizziness/lightheadedness, just felt "knees" get weak. Family and patient express notable concern for falls and progress decline and wish to pursue rehab if possible. Referrals placed by case management. #Hypothyroidism Continue home Synthroid TSH 10, normal T4 1.2 Notably elevated to 9 on prior admits Will increase to 150mcg qam given elevated trends and weakness, needs OP follow up #SVT #Paroxysmal atrial fibrillation s/p Watchman device #History of mitral valve clip implantation Echo in August showed large thrombus on Watchman device On Eliquis Currently not on any rate controlling medications Following with cardiology Recently taken off of Sotalol in 08/2023 -Started metoprolol 12.5mg BID Cards consult -Continue to Metoprolol XL 25mg BID 10/15 HR stable #Generalized weakness likely related to ongoing diarrhea, poor nutrition -Treat infection below -PT/OT--plan for rehab #Acute abdominal pain *resolving #Acute sigmoid diverticulitis *resolving #Acute Diarrhea *improving #Enteroaggreative E Coli #C. Diff gene positive Back positive for c diff gene and EAEC -Complete course of Dificid, 02/01 -Encourage PO Advance diet--low fiber -Ertapenem o13--woxmiestvpih to IV ctx/flagyl to complete course day -BMP in am -KUB given "not having normal BM" assess for stool burden if any/ overflow? 10/15 still having diarrhea, 4x today already on Ceftri + Doxy, Fidaxomicin will consult GI #Chronic JALEEL Anemia Iron deficiency anemia Hgb down to 8.6 (baseline 7-8), likely hemoconcentrated from diarrhea/dehydration as all cell lines notably decreased Last admission she received 2 units of PRBCs and IV Venofer There is a plan for OP EGD and colonoscopy Patient follows with Dr. 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 sheer stress 2/[address] #Abnormal liver enzymes Chronic mild elevation in AST, ALP No RUQ tenderness, no cholecystitis, symptoms resolved #Chronic Troponin elevation -Plateaued, stable elevation in 20s CTM #Sick sinus syndrome #S/p pacemaker Monitor on tele #CKD stage IV GFR consistently in ~mid 29s since 11/2022 Creatinine was around 1.7-1.8 last admission Holding torsemide, resume likely in coming days hold torsemide #Elevated troponin, likely demand iso dehydration, poor renal baseline Will follow serial enzymes-downtrended #abnormal UA No further treatment, asymptomatic #Diabetes Mellitus Type II, with CKD Not on meds, A1C 10/10 6.1% Insulin sliding scale #Hyperlipidemia On statin #GERD On Protonix #Chronic Heart failure with preserved ejection fraction Holding torsemide Monitor for volume overload, resume diuretic as soon as possible patient on the dry side with diarrhea #Depression On Zoloft #Asthma Stable Continue home inhalers DVT prophylaxis Eliquis Disposition Med/tele Full code, per prior hospitalist " if there is chance of recovery" Disposition pending Admission and Anticipated Discharge Date Admission Date: October 09, 2023 Subjective ff up for diarrhea etc resting in bed, comfortable states she feels ok overall abdominal pain improved but still having diarrhea 4 times today No nausea or vomiting no fevers or chills No other new symptoms Review of Systems Review of Systems: all noted and negative except for above Physical Exam Physical Exam: General- oriented x 3, not in distress, speaks in sentences with no effort or accessory muscle use Eyes- anicteric Neck- no JVD Lungs- clear breath sounds bilaterally, no rales/wheezes Heart- normal rate, regular rhythm; no murmurs Abdomen- normal bowel sounds, nondistended, soft, nontender Extremities- no pretibial edema, no calf tenderness Neuro- alert, oriented x 3; no gross focal neurologic deficits Skin- warm & dry Results & Data Results & Data Vital Signs (Past 12 Hours) Vital Signs Temp Pulse Pulse Resp BP Pulse Ox O2 Del Method 10/15/23 16:15 63 10/15/23 11:22 36.3 C L 62 16 128/59 L 97 Room Air 10/15/23 08:45 Room Air 10/15/23 08:25 36.4 C L 60 16 111/61 97 Room Air 10/15/23 07:44 62
[2023-10-16 05:24] LABS: Est GFR (African American) 45.6 ml/min; Est GFR (Non-African American) 39.4 ml/min
--- NOTE | 2023-10-16 07:35 | Cardiology Progress Note ---
Date of Service October 16, 2023 Assessment & Plan (1) Presence of Watchman left atrial appendage closure device: Plan: * Large BOB thrombus-- Continue Eliquis 2.5 mg twice daily. Follow-up BRENDAN already planned at [place]. (2) Paroxysmal atrial fibrillation: Plan: * Longstanding history of paroxysmal atrial fibrillation. Has dual-chamber permanent pacemaker. * Sotalol recently discontinued due to renal insufficiency. Transitioned to metoprolol tartrate with increased dose to 25 mg twice daily, 10/12/2023. * Discontinue metoprolol tartrate in favor of metoprolol succinate 25 mg BID, 10/13/2023. * Most recent EKG revealed stable QT interval. EKG has been interpreted--keeping with ventricular paced QRS complex in mind which will increase the QT interval. Agree however with avoiding ciprofloxacin if possible. (3) Generalized weakness: Plan: Ongoing generalized weakness-- deconditioning likely contributing. Fall this morning in the bathroom due to weakness- no syncope. CT of the head without bleed. 1. Recommend ongoing PT/OT while inpatient. Patient may benefit from rehab at discharge. Will defer to primary team. Plan Case discussed with Dr. Snowden. No further recommendations from a cardiology standpoint. I spent a total of 30 minutes on the date of service in preparation, delivery, and documentation of the care provided to the patient excluding any time spent in the performance of separately billed services. JESS Ny Department of Cardiology, [facility] This chart was completed in part utilizing Speech Voice Recognition Software. Grammatical errors, random word insertions, pronoun errors, and incomplete sentences are an occasional consequence of this system due to software limitations, ambient noise, and hardware issues. Any formal questions or concerns about the content, text, or information contained within the body of t his dictation should be directly addressed to the provider for clarification. Admission and Anticipated Discharge Date Admission Date: October 09, 2023 Supervising Physician Co-Signing Physician Notes Attending attestation: Case reviewed with the advanced practitioner. I have personally performed a history and physical examination on the patient. I have reviewed the advanced practitioner's documentation on the date of service referenced in note, and I agree with, and take responsibility for the plan of care. -Pt with recurrent transient perioral numbness and "heavy tongue". Symptoms similar to those patient described to me on prior hospitalization and have ceased. Continue Eliquis. Dose is appropriate for pt's age and kidney function. Not on aspirin due to recurrent anemia. H/H stable at present. Jerome IsiDO Subjective Medically complex 83-year-old female who presented to [facility] emergency department due to progressive weakness and a fall at the grocery store. She also has had intermittent abdominal discomfort and diarrhea and has been found to have sigmoid diverticulitis prompting initial treatment with ciprofloxacin and metronidazole. When EKG revealed a QT interval of around 500 ms and therefore ciprofloxacin discontinued in the meantime and she is now on ertapenem. She has also been found to have C. difficile colitis. Patient carries a history of paroxysmal atrial fibrillation with recent discontinuation of sotalol due to renal insufficiency (09/29/2023). Telemetry this admission revealed predominantly sinus rhythm with a brief episode of atrial fibrillation on 10/12/2023 at 8:30 AM with spontaneous conversion to sinus rhythm. She previously had been on Eliquis but has had problems with recurrent gastrointestinal bleeding. A Watchman device was placed in July, at [facility] and she was discharged on aspirin and clopidogrel. She was readmitted to [facility] with recurrent anemia, hemoglobin as low as 6.5 on 08/23/2023 prompting transfusion of packed red blood cells. She was transitioned to aspirin monotherapy. A transesophageal echocardiogram was performed as per follow-up routine post Watchman device on 09/15/2023 at [facility] revealing a large, protruding thrombus on the Watchman device with length of thrombus of 2.9 cm. Aspirin therefore discontinued and she has been since placed on Eliquis 2.5 mg twice daily. 10/13/2023: Metoprolol tartrate 25 mg BID discontinued in favor of Metoprolol succinate 25 mg BID On Eliquis 2.5 mg BID for stroke prevention with AFIB (dose reduced due to age and renal function). 10/14/2023: Tele: Paced 60s No PAF seen. Fall in the bathroom secondary to leg weakness- hit head. CT of the head negative for bleed. 10/15/2023: Tele: Sinus rhythm A- V sequential paced 60s, no PAF. No acute issues. No changes made. 10/16/2023: Tele: sinus rhythm A- V sequential paced 60s, no PAF. Upon entrance into the room patient resting comfortably in the bed. No acute distress. Denies any chest pain, shortness of breath, palpitations. No lightheadedness or dizziness. No further episodes of falls. Notes an episode of lung and lip numbness this morning. Has happened on multiple occasions- worked up for stroke in the past. Upon my exam symptoms have resolved. Review of Systems Review of Systems: All systems reviewed & are unremarkable except as noted in HPI & below Physical Exam Constitutional: WD/WN, vitals as above Respiratory: normal respiratory effort, lungs clear to auscultation Cardiovascular: RRR, no murmur, no edema Chest (Breasts): Chest: + pacemaker Gastrointestinal (Abdomen): normal bowel sounds, soft, nontender, no hepatosplenomegaly Neurologic: PERRL, EOMI, accommodation nl, no face palsy, no dysarthria Results & Data Vital Signs (Past 12 Hours) Vital Signs Temp Pulse Pulse Resp BP Pulse Ox O2 Del Method 10/16/23 07:06 62 10/16/23 03:18 36.6 C 64 18 115/66 93 Room Air 10/15/23 22:57 36.5 C 60 18 132/68 96 Room Air 10/15/23 22:45 64 10/15/23 21:44 Room Air
--- NOTE | 2023-10-16 10:30 | Gastrointestinal Consultation ---
Date of Consultation October 16, 2023 Assessment & Plan (1) Diarrhea: 83 year old female with history of T2DM, hypothyroidism, asthma, afib, pulm htn, PVD, CHF, s/p cardiac pacer, tricuspid regurg, GERD, endometrial CA, RADHA, SSS, CKD, s/p watchman procedure and others below admitted w/ weakness and fall, GI asked to evaluate for diarrhea. The events of recent Dificid use with report of completion in 10/04 are unclear to me. I was unable to find a positive c.diff test in [place] or [facility]. On admission she was toxin negative, gene positive which could suggest a carrier status. However, it appears she was re-started on Dificid. Spoke with primary team. Will continue to review medical records to ensure no c.diff testing completed elsewhere. If not, ok to D/C dificid. Would continue treatment of the diverticulitis. Given EAEC avoid Imodium. May use Questran once daily PRN. Thank you for allowing us to participate in the care of this patient. Please call with any acute changes, questions or concerns. Please see addendum below with additional recommendation from my supervising physician. Supervising Physician Co-Signing Physician Notes I saw and evaluated the patient on 10/16/2023 with JESS Zee and agree with her findings and plan of care. Abdomen soft and non-tender. Agree with treatment of diverticulitis with abx for a total of 10 days. No Imodium given stool + E. coli. Use question as needed for diarrhea. Advance diet as tolerated. Can consider outpatient colonoscopy in 6-8 weeks for follow up of diverticulitis but she did have a colonoscopy in 2021 and given age and her multiple medical co-morbidities she may want to discuss with her PCP the risk vs. benefits of undergoing another colonoscopy. Emelina Lugo, DO Gastroenterology and Hepatology History of Present Illness Reason for Consultation: persistent diarrhea Requesting Physician: Litzy Attending Physician: Buster Mcghee MD History of Present Illness 83 year old female with history of T2DM, hypothyroidism, asthma, afib, pulm htn, PVD, CHF, s/p cardiac pacer, tricuspid regurg, GERD, endometrial CA, RADHA, SSS, CKD, s/p watchman procedure and others below admitted w/ weakness and fall, GI asked to evaluate for diarrhea. Pt was seen and evaluated, chart reviewed. Admitted 10/09. Was reporting pain and diarrhea at time of admission. CT showed diverticulitis. Stools positive for ecoli and c diff gene but negative toxin. There is report that she had a course of Dificid prior to arrival, however, I am not able to identify a c.diff testing. She was restarted on Difcid on admission. Today, she feels okay. Suggests 2 stools. Soft. No black or bloody. No abd pain. Tolerating PO intake. She is on Dificid, IV flagyl and IV ceftriaxone EGD 2022: - Normal esophagus. - Gastritis. Biopsied. - Normal examined duodenum. EGD 2022: The esophagus was normal. Multiple diminutive sessile fundic gland polyps with no stigmata of recent bleeding were found in the gastric fundus. The examined duodenum was normal. VCE 2021: Normal examination of the small bowel Gastric erosions noted Colon 2021: - Preparation of the colon was fair. - No fresh or altered blood. - The examined portion of the ileum was normal. - Diverticulosis in the sigmoid colon. - Stool in the entire examined colon. - The distal rectum and anal verge are normal on retroflexion view. - No specimens collected. Allergies Allergy/AdvReac Type Severity Reaction Status Date / Time Sulfa (Sulfonamide Allergy Severe Severe Verified 10/09/23 21:19 Antibiotics) rxn: rash and hives celecoxib Allergy Intermediate Rash/Hives/ Verified 10/09/23 21:19 Itching. cephalexin Allergy Intermediate Rash/Hives/ Verified 10/09/23 21:19 Itching. furosemide Allergy Intermediate Rash/Hives/ Verified 10/09/23 21:19 Itching. gabapentin Allergy Intermediate Rash/Hives/ Verified 10/09/23 21:19 Itching. pregabalin Allergy Intermediate Rash/Hives/ Verified 10/09/23 21:19 Itching. meclizine Allergy Unknown Unknown Verified 10/09/23 21:19 methylprednisolone Allergy Unknown Rash/Hives/ Verified 10/09/23 21:19 Itching. Penicillins Allergy Unknown Unknown. Verified 10/09/23 21:19 prednisone Allergy Unknown Rash/Hives/ Verified 10/09/23 21:19 Itching. vancomycin Allergy Unknown Jodi Verified 10/09/23 21:19 syn. . nickel Allergy Unknown Verified 10/09/23 21:19 dexamethasone AdvReac Intermediate Steroid Verified 10/09/23 21:19 psychosis. Home Medications Medication Instructions Recorded Confirmed Type montelukast 10 mg tablet 10 mg PO PM 04/08/19 10/09/23 History ferrous sulfate 325 mg (65 mg 325 mg PO QAM 06/03/20 10/09/23 History iron) tablet atorvastatin 20 mg tablet 20 mg PO QAM 11/26/21 10/09/23 History cholecalciferol (vitamin D3) 50 100 mcg PO QAM 11/26/21 10/09/23 History mcg (2,000 unit) capsule (Vitamin D3) levalbuterol tartrate 45 1 puff inhalation Q4 PRN Shortness 08/07/22 10/09/23 History mcg/actuation aerosol inhaler Of Breath (Xopenex HFA) sertraline 100 mg tablet 150 mg PO QAM 08/07/22 10/09/23 History cyanocobalamin (vitamin B-12) 100 100 mcg PO QAM 11/07/22 10/09/23 History mcg tablet (Vitamin B-12) folic acid 1 mg tablet 1 mg PO QAM 11/07/22 10/09/23 History tiotropium 2.5 mcg-olodaterol 2.5 2 puff inhalation QAM 11/07/22 10/09/23 History mcg/actuation mist for inhalation (Stiolto Respimat) torsemide 10 mg tablet 10 mg PO QAM 11/07/22 10/09/23 History ipratropium bromide 21 mcg (0.03 2 spray intranasal DAILY PRN 12/06/22 10/09/23 History %) nasal spray rhinorrhea pantoprazole 40 mg tablet,delayed 40 mg PO BID #60 tabs 12/09/22 10/09/23 Rx release allopurinol 300 mg tablet 300 mg PO HS 08/14/23 10/09/23 History lorazepam 1 mg tablet 1 mg PO HS PRN sleep/anxiety 08/14/23 10/09/23 History levothyroxine 125 mcg capsule 125 mcg PO QAM 08/22/23 10/09/23 History apixaban 2.5 mg tablet (Eliquis) 2.5 mg PO AMHS 02/15/24 02/15/24 History Patient History Medical History SSS (sick sinus syndrome) Chronic diastolic (congestive) heart failure TIA (transient ischemic attack) Nausea Leukocytosis Near syncope Hypotension Dehydration TIFFANY (acute kidney injury) Near syncope Elevated brain natriuretic peptide (BNP) level Pneumonia Atrial flutter Carotid artery aneurysm Prolonged QT interval Atrial fibrillation with RVR DM type 2 (diabetes mellitus, type 2) History of tobacco abuse Encounter for pre-operative examination Cholelithiasis Cholecystitis Chest pain at rest Pulmonary emphysema Osteoarthritis of right knee HTN (hypertension) RADHA (obstructive sleep apnea) Atrial fibrillation and flutter CKD (chronic kidney disease), stage III Meniere disease Depression Hypothyroidism Asthma, moderate persistent Surgical History History of hysterectomy History of cholecystectomy History of repair of left rotator cuff Hx of neck surgery H/O sinus surgery History of laminectomy Family History Father Diabetes Social History Smoking Status: Never smoker Tobacco Type: Cigarettes packs per day: 1.5; Cigarettes Per Day: 30; Second Hand Exposure: No; Do You Dip or Chew Tobacco: No; Hx Alcohol Use: No Hx Substance Use: No Preferred Language: Frisian Communication Ability: Effective 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 Beliefs That Will Affect Care: None marital status: Current Living Situation: Spouse Other Information That Helps Us Care for You: No Feels Safe at Home: Yes Safety Concerns: Feels Safe At This Time Assistive Devices: Oxygen - at Night and Walker Review of Systems Review of Systems: All systems reviewed & are unremarkable except as noted in HPI & below Physical Exam Constitutional: WD/WN, vitals as above Respiratory: normal respiratory effort Cardiovascular: Rate/Rhythm: regular rate Gastrointestinal (Abdomen): normal bowel sounds, soft, nontender, no hepatosplenomegaly Skin: no rashes, warm and dry Results & Data Vital Signs (Past 12 Hours) Vital Signs Temp Pulse Pulse Resp BP BP Pulse Ox 10/16/23 07:37 36.7 C 61 19 131/59 L 95 10/16/23 07:06 62 10/16/23 03:18 36.6 C 64 18 115/66 93 10/15/23 22:57 36.5 C 60 18 132/68 96 10/15/23 22:45 64 O2 Del Method 10/16/23 07:37 Room Air 10/16/23 07:06 10/16/23 03:18 Room Air 10/15/23 22:57 Room Air 10/15/23 22:45 Laboratory Results 10/16/23 10/16/23 10/15/23 Range/Units 08:26 04:45 19:47 Creatinine 1.26 H (0.6-1.2) mg/dl Est Cr Clr Drug Dosing 34.0 ml/min Est GFR ( Amer) 45.6 ml/min Est GFR (Non-Af Amer) 39.4 ml/min POC Glucose 118 H 128 H (70-99) mg/dl 10/15/23 10/15/23 Range/Units 17:32 12:17 Creatinine (0.6-1.2) mg/dl Est Cr Clr Drug Dosing ml/min Est GFR ( Amer) ml/min Est GFR (Non-Af Amer) ml/min POC Glucose 106 H 133 H (70-99) mg/dl
--- NOTE | 2023-10-16 11:07 | Hospitalist Progress Note ---
Date of Service October 16, 2023 Assessment & Plan (1) Generalized weakness: Plan: per previous hospitalist notes with addendum: Ms. Barakat is an 83-year-old female with past medically history significant for type 2 diabetes, diabetic retinopathy, CKD stage III, hypercholesterolemia, obstructive sleep apnea, moderate persistent asthma, paroxysmal atrial fibrillation, s/p watchman's device, history of mitral valve clip implantation, sick sinus syndrome s/p pacemaker, pulmonary hypertension, peripheral vascular disease, chronic diastolic CHF, angiodysplasia of colon, aneurysm of left carotid artery, severe tricuspid regurgitation, CAD , GERD, Mnire's disease, iron deficiency anemia, depression, history of endometrial cancer , TIA presented 10/09 with weakness and diarrhea. Patient on admission noted to have hgb 10, wbc 11.34, mild hyponatremia, TSH 10 iso recent illness/normal T4, baseline trop elevation 26.5, and mild LFT elevations consistent with prior. Renal function appears at baseline per trends since 2022. Per admitting hospitalist: "She was in the hospital in early August of this year with weakness and at the time she also found to have hemoglobin of 6.5 requiring 2 units of PRBCs. And also was treated for sinusitis with oral doxycycline. Anemia workup was done with peripheral smear which showed occasional teardrop cells thought to be related to chronic disease but myelodysplastic syndrome has not been ruled out and further hematology evaluation was recommended. She also received 5-day course of IV Venofer. Seen by GI and recommended conservative management at that time. She also seen by nephrology for TIFFANY on chronic disease. Symptoms improved with transfusion. Her sotalol dose was reduced to 40 mg daily due to renal insufficiency. Followed up with cardiology in first week of September and seems she underwent follow-up BRENDAN for a Watchman procedure in August and was noted large thrombus on device. At that point her aspirin was discontinued she was started Eliquis 2.5 mg twice daily. There is a plan to repeat echo to be completed near future. And also plan for endoscopy and colonoscopy in near future. After last admission in August patient was in rehab. As per son after coming from home she is been gradually getting weak. She ambulates with a rollator walker. Lately having diarrhea. Not able to eat much. Poor appetite. Recently she fell from the commode but did not totally fall down. Yesterday in the parking lot of [facility] she almost fell down. Because of diarrhea and weakness son brought her back to the hospital today." Patient endorses mild subjective improvement. CT AB P yesterday revealed acute diverticulitis Initially started on cipro/flagyl, but prolonged QTc and SVT noted overnight. Transitioned to ertapenem. After review of allergies, determined with pharmacy t hat CTX/flagyl will be acceptable as patient has tolerated CTX previously, despite documented allergies of keflex. Noted to have bouts of SVT while ambulating. Discontinued off of sotalol recently, no other rate control in place. Place on metoprolol tartrate on 10/12 to add rate control given bouts of tachycardia. Patient tolerating low fiber diet without issue and pain free. Remaining concern is weakness--which proved to result in unwitnessed fall over night on 10/13. Patient without LOC/dizziness/lightheadedness, just felt "knees" get weak. Family and patient express notable concern for falls and progress decline and wish to pursue rehab if possible. Referrals placed by case management. #Acute abdominal pain *resolving #Acute sigmoid diverticulitis *resolving #Acute Diarrhea *improving #Enteroaggreative E Coli #C. Diff gene positive Back positive for c diff gene and EAEC -Complete course of Dificid, 02/01 -Encourage PO Advance diet--low fiber -Ertapenem r57--[id number] to IV ctx/flagyl to complete course day -BMP in am -KUB given "not having normal BM" assess for stool burden if any/ overflow? CT abdomen pelvis: 1. Acute sigmoid diverticulitis. Inflamed sigmoid diverticulum with mild inflammation. No free air. No abscess. 2. Mild interstitial pulmonary edema. Subpleural groundglass opacities within the lower lungs could reflect a superimposed infectious process or alveolar pulmonary edema. 3. No bowel obstruction. Normal appendix. 10/15 still having diarrhea, 4x today already on Ceftri + Doxy, Fidaxomicin will consult GI 10/16 Diarrhea seems to be improving Discussed with GI service DC for fidaxomicin as patient did not have any positive C. difficile toxin based on review of lab tests Continue ceftriaxone plus Flagyl day number 7 out of 10 for acute diverticulitis Probiotics daily #CKD stage IV GFR consistently in ~mid 29s since 11/2022 Creatinine was around 1.7-1.8 last admission Holding torsemide in light of diarrhea patient appears to be euvolemic #Chronic Heart failure with preserved ejection fraction Holding torsemide Monitor for volume overload, resume diuretic as soon as possible patient on the dry side with diarrhea #SVT #Paroxysmal atrial fibrillation s/p Watchman device #History of mitral valve clip implantation Echo in August showed large thrombus on Watchman device On Eliquis Currently not on any rate controlling medications Following with cardiology Recently taken off of Sotalol in 08/2023 -Started metoprolol 12.5mg BID Cards consult -Continue to Metoprolol XL 25mg BID 2/21 HR stable #Sick sinus syndrome #S/p pacemaker Monitor on tele #Generalized weakness likely related to ongoing diarrhea, poor nutrition -Treat infection below -PT/OT--plan for rehab #Hypothyroidism Continue home Synthroid TSH 10, normal T4 1.2 Notably elevated to 9 on prior admits Will increase to 150mcg qam given elevated trends and weakness, needs OP follow up #Chronic JALEEL Anemia Iron deficiency anemia Hgb down to 8.6 (baseline 7-8), likely hemoconcentrated from diarrhea/dehydration as all cell lines notably decreased Last admission she received 2 units of PRBCs and IV Venofer There is a plan for OP EGD and colonoscopy Patient follows with Dr. 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 sheer stress 2/[address] CBC stable #Abnormal liver enzymes Chronic mild elevation in AST, ALP No RUQ tenderness, no cholecystitis, symptoms resolved #Chronic Troponin elevation -Plateaued, stable elevation in 20s CTM #Diabetes Mellitus Type II, with CKD Not on meds, A1C 10/10 6.1% Insulin sliding scale #Hyperlipidemia On statin #GERD On Protonix #Depression On Zoloft #Asthma Stable Continue home inhalers DVT prophylaxis Eliquis Disposition Med/tele Full code, per prior hospitalist " if there is chance of recovery" Disposition pending Admission and Anticipated Discharge Date Admission Date: October 09, 2023 Subjective Follow-up for diarrhea, etc. Seen resting in bed, sitting up, not in distress, comfortable States she feels okay overall No abdominal pain, had 2 BMs this morning, somewhat pasty but not watery anymore No fevers or chills, nausea or vomiting This morning, while sitting and resting, patient had an episode where she felt that her tongue was feeling swollen, her mouth was numb and was having some slurred speech This lasted for a couple of minutes and has since resolved Patient reports intermittent episodes with the same presentation for the past few months, this happens once or twice a week No other neurologic deficits noted No other new symptoms Review of Systems Review of Systems: all noted and negative except for above Physical Exam Physical Exam: General- oriented x 3, not in distress, speaks in sentences with no effort or accessory muscle use Eyes- anicteric Neck- no JVD Lungs- clear breath sounds bilaterally, no rales/wheezes Heart- normal rate, regular rhythm; no murmurs Abdomen- normal bowel sounds, nondistended, soft, nontender Extremities- no pretibial edema, no calf tenderness Neuro- alert, oriented x 3; no new gross focal neurologic deficits Skin- warm & dry Results & Data Results & Data Vital Signs (Past 12 Hours) Vital Signs Temp Pulse Pulse Resp BP BP Pulse Ox 10/16/23 07:37 36.7 C 61 19 131/59 L 95 10/16/23 07:06 62 10/16/23 03:18 36.6 C 64 18 115/66 93 O2 Del Method 10/16/23 07:37 Room Air 10/16/23 07:06 10/16/23 03:18 Room Air
--- NOTE | 2023-10-16 13:40 | Neurology Consultation ---
Date of Consultation October 16, 2023 Assessment & Plan (1) TIA (transient ischemic attack): Recurrent Episodes of perioral numbness that are less likely related to TIAs but rather angioedema (2) Angio-edema: Possible angioedema/probably a mild form, with no airway impairment, will need to verify that it happened after ministration of contrast dye, Less likely hereditary, Recommend medication review. Could be only affecting of gingiva due to deficiency of C1 esterase inhibitor, or alcoholic deficiency, related to internal medicine for further evaluation Plan Continue Eliquis 2.5 mg twice daily Continue Lipitor 20 mg daily Telehealth Consultation Telehealth Information Telehealth Information: I performed this visit using a real-time telehealth connection between my location and the patients location ([facility]). After connecting through interactive tele-video, patient was identified by name and date of and/or wristband check.Patient (or authorized healthcare retail representative) was informed that this was a telemedicine visit and it was being conducted confidentially over secure lines. My office door was closed and no one else was present in the room with me.Patient (or authorized healthcare retail representative) provided consent to proceed with the visit, expressed an u nderstanding of privacy and security of the telemedicine visit, and gave permission to have a hospital retail representative in the room in order to assist with the visit and to conduct portions of the visit, as needed. I informed the patient (or authorized healthcare retail representative) that I reviewed their record and presented the opportunity for them to ask any questions regarding the visit today. The patient agreed to participate. History of Present Illness Reason for Consultation: Perioral numbness Requesting Physician: Dr Mcghee Attending Physician: Buster Mcghee MD History of Present Illness Per HPI: Ms. Barakat is an 83-year-old female with past medically history significant for type 2 diabetes, diabetic retinopathy, CKD stage III, hypercholesterolemia, obstructive sleep apnea, moderate persistent asthma, paroxysmal atrial fibrillation, s/p watchman's device, history of mitral valve clip implantation, sick sinus syndrome s/p pacemaker, pulmonary hypertension, peripheral vascular disease, chronic diastolic CHF, angiodysplasia of colon, aneurysm of left carotid artery, severe tricuspid regurgitation, CAD , GERD, Mnire's disease, iron deficiency anemia, depression, history of endometrial cancer , TIA presented 10/09 with weakness and diarrhea. History was obtained from the patient and her son over the phone during the interview. The patient tells me that she did have episodes of spanning of the inside of her gums, tongue and feels like her throat is swollen about 2 close, it never came to an extent that it impairs her airways but this has been happening over the past year, she presented in July numbness and slurred speech as her main issue and was processed as a stroke alert with a negative MRI however going back she states this is the same. The patient has been checking to the hospital because of generalized weakness, she does have weakness of bilateral lower extremities at baseline however she has been having diarrhea for about 2 weeks and has been recently diagnosed with anemia, felt weaker than usual so she came to the emergency room. has been in the hospital 2 weeks ago for dehydration and her blood counts has arnel low While she was in the hospital she had numbness and swelling of her gums, tongue and throat, and again she complained of numbness and slurred speech instead of swelling. He denies any new visual changes, denies any focal numbness or weakness as above she does have difficulty with her gait. Allergies Allergy/AdvReac Type Severity Reaction Status Date / Time Sulfa (Sulfonamide Allergy Severe Severe Verified 10/09/23 21:19 Antibiotics) rxn: rash and hives celecoxib Allergy Intermediate Rash/Hives/ Verified 10/09/23 21:19 Itching. cephalexin Allergy Intermediate Rash/Hives/ Verified 10/09/23 21:19 Itching. furosemide Allergy Intermediate Rash/Hives/ Verified 10/09/23 21:19 Itching. gabapentin Allergy Intermediate Rash/Hives/ Verified 10/09/23 21:19 Itching. pregabalin Allergy Intermediate Rash/Hives/ Verified 10/09/23 21:19 Itching. meclizine Allergy Unknown Unknown Verified 10/09/23 21:19 methylprednisolone Allergy Unknown Rash/Hives/ Verified 10/09/23 21:19 Itching. Penicillins Allergy Unknown Unknown. Verified 10/09/23 21:19 prednisone Allergy Unknown Rash/Hives/ Verified 10/09/23 21:19 Itching. vancomycin Allergy Unknown Jodi Verified 10/09/23 21:19 syn. . nickel Allergy Unknown Verified 10/09/23 21:19 dexamethasone AdvReac Intermediate Steroid Verified 10/09/23 21:19 psychosis. Home Medications Medication Instructions Recorded Confirmed Type montelukast 10 mg tablet 10 mg PO PM 04/08/19 10/09/23 History ferrous sulfate 325 mg (65 mg 325 mg PO QAM 06/03/20 10/09/23 History iron) tablet atorvastatin 20 mg tablet 20 mg PO QAM 11/26/21 10/09/23 History cholecalciferol (vitamin D3) 50 100 mcg PO QAM 11/26/21 10/09/23 History mcg (2,000 unit) capsule (Vitamin D3) levalbuterol tartrate 45 1 puff inhalation Q4 PRN Shortness 08/07/22 10/09/23 History mcg/actuation aerosol inhaler Of Breath (Xopenex HFA) sertraline 100 mg tablet 150 mg PO QAM 08/07/22 10/09/23 History cyanocobalamin (vitamin B-12) 100 100 mcg PO QAM 11/07/22 10/09/23 History mcg tablet (Vitamin B-12) folic acid 1 mg tablet 1 mg PO QAM 11/07/22 10/09/23 History tiotropium 2.5 mcg-olodaterol 2.5 2 puff inhalation QAM 11/07/22 10/09/23 H istory mcg/actuation mist for inhalation (Stiolto Respimat) torsemide 10 mg tablet 10 mg PO QAM 11/07/22 10/09/23 History ipratropium bromide 21 mcg (0.03 2 spray intranasal DAILY PRN 12/06/22 10/09/23 History %) nasal spray rhinorrhea pantoprazole 40 mg tablet,delayed 40 mg PO BID #60 tabs 12/09/22 10/09/23 Rx release allopurinol 300 mg tablet 300 mg PO HS 08/14/23 10/09/23 History lorazepam 1 mg tablet 1 mg PO HS PRN sleep/anxiety 08/14/23 10/09/23 History levothyroxine 125 mcg capsule 125 mcg PO QAM 08/22/23 10/09/23 History apixaban 2.5 mg tablet (Eliquis) 2.5 mg PO AMHS 10/09/23 10/09/23 History Patient History Medical History SSS (sick sinus syndrome) Chronic diastolic (congestive) heart failure TIA (transient ischemic attack) Nausea Leukocytosis Near syncope Hypotension Dehydration TIFFANY (acute kidney injury) Near syncope Elevated brain natriuretic peptide (BNP) level Pneumonia Atrial flutter Carotid artery aneurysm Prolonged QT interval Atrial fibrillation with RVR DM type 2 (diabetes mellitus, type 2) History of tobacco abuse Encounter for pre-operative examination Cholelithiasis Cholecystitis Chest pain at rest Pulmonary emphysema Osteoarthritis of right knee HTN (hypertension) RADHA (obstructive sleep apnea) Atrial fibrillation and flutter CKD (chronic kidney disease), stage III Meniere disease Depression Hypothyroidism Asthma, moderate persistent Surgical History History of hysterectomy History of cholecystectomy History of repair of left rotator cuff Hx of neck surgery H/O sinus surgery History of laminectomy Family History Father Diabetes Social History Smoking Status: Never smoker Tobacco Type: Cigarettes packs per day: 1.5; Cigarettes Per Day: 30; Second Hand Exposure: No; Do You Dip or Chew Tobacco: No; Hx Alcohol Use: No Hx Substance Use: No Preferred Language: Norwegian Communication Ability: Effective Train Gateman Required: No Beliefs That Will Affect Care: None marital status: Current Living Situation: Spouse Other Information That Helps Us Care for You: No Feels Safe at Home: Yes Safety Concerns: Feels Safe At This Time Assistive Devices: Oxygen - at Night and Walker Review of Systems Constitutional: Patient denies weight loss, fever, chills, and night sweats Eyes: Patient denies change in vision, tearing, pain, and redness ENT: Patient denies pain, bleeding, rhinorrhea, and dysphagia Cardiovascular: Patient denies chest pain, palpitation, dyspnea at rest, and dyspnea with exertion Respiratory: Patient denies shortness of breath, cough, wheezing, and productive cough GI: Patient denies reflux, pain, constipation, and diarrhea Skin: Patient denies rash, dryness, and itching Allergies/Immune System: Patient denies rhinorrhea, seasonal allergies, reaction to current MEDS, and joint swelling Endocrine: Patient denies weight loss, weight gain, temperature intolerance, and excessive thirst Neurological: All negative unless mentioned in the HPI Physical Exam General Constitutional: Appearance normally developed Head and face: normocephalic and atraumatic Eyes: no ptosis, no anisocoria, and no dysconjugate gaze Respiratory: normal effort Cardiovascular: regular rhythm and regular rate Abdomen: non distended Skin: no rashes, lesions, or ulcers noted Psychiatric: normal judgement and insight, normal mood, and normal affect NEUROLOGIC EXAMINATION: Mental Status:alert, oriented to time, place, person, normal recent memory, normal remote memory, normal attention span, normal concentration, normal language and normal fund of knowledge Cranial Nerves: CN 2 - no visual defect on confrontation and pupils round, equal, reactive to light CN 3, 4, 6 - extra-ocular movements intact and no nystagmus CN 5 - facial sensation intact CN 7 - no facial asymmetry CN 8 - intact hearing CN 9, 10 - palate symmetric, normal gag CN 11 - good shoulder shrug CN 12 - tongue midline MOTOR: Strength was at least antigravity throughout, Pronator drift is present in both legs and There were no abnormal movements SENSATION: intact and symmetric to pinprick, light touch, vibration and joint position GAIT: Walks with a walker and is weak COORDINATION: no ataxia with finger to nose testing and heel to little testing REFLEXES: cannot assess over telemedicine Results & Data Vital Signs (Past 12 Hours) Vital Signs Temp Pulse Pulse Resp BP BP Pulse Ox 10/16/23 12:28 36.6 C 63 18 139/73 97 10/16/23 08:30 10/16/23 07:37 36.7 C 61 19 131/59 L 95 10/16/23 07:06 62 10/16/23 03:18 36.6 C 64 18 115/66 93 O2 Del Method 10/16/23 12:28 Room Air 10/16/23 08:30 Room Air 10/16/23 07:37 Room Air 10/16/23 07:06 10/16/23 03:18 Room Air Laboratory Results Laboratory Results - last 24 hr 10/15/23 10/15/23 10/16/23 17:32 19:47 04:45 Creatinine 1.26 H Est Cr Clr Drug Dosing 34.0 Est GFR ( Amer) 45.6 Est GFR (Non-Af Amer) 39.4 POC Glucose 106 H 128 H 10/16/23 10/16/23 08:26 12:25 Creatinine Est Cr Clr Drug Dosing Est GFR ( Amer) Est GFR (Non-Af Amer) POC Glucose 118 H 98 Diagnostic Findings [facility] 08/15/2023: CT angio head w con, CT angio neck with con, CT head/brain wo con CLINICAL HISTORY: 83 years-old Female with slurred speech, facial droop. Acute stroke like symptoms COMPARISON STUDY: Head CT 08/14/2023, brain MRI 08/13/2023 TECHNIQUE: Unenhanced axial CT scan of the brain is performed. Subsequently, following the IV administration of 118 cc of Optiray, CT angiogram of the head and neck was performed from the aortic arch to the skull apex. Images are reviewed in the axial, sagittal, and coronal planes. 3-D MIPS images are created and assessed. IV contrast was administered without complication. All measurements were o btained according to NASCET criteria. A dose lowering technique was utilized adhering to the principles of ALARA. CT DOSE: 1124.49 mGy.cm (accession [id number]), 602.96 mGy.cm (accession [id number]) FINDINGS: CT BRAIN: There is no acute intracranial hemorrhage, midline shift, hydrocephalus, intracranial mass, territorial ischemia or abnormal extra-axial collections. No abnormal intra-axial or extra-axial enhancement. Involutional changes with chronic microvascular ischemic disease. Mastoid air cells and middle ear cavities are clear. No calvarial fracture. Chronic severe mucoperiosteal thickening of the frontal, ethmoid and axillary sinuses. Prior bilateral lens repair. CT ANGIOGRAM OF THE HEAD AND NECK: Three-vessel morphology of the thoracic aortic arch. Patency of the innominate and image subclavian arteries. The common and internal carotid arteries are patent. Atherosclerosis of the carotid bulbs without significant stenosis. Additional calcified plaque of the cavernous, clinoid and supraclinoid segments. The bilateral anterior and middle cerebral arteries are also patent. The vertebral and basilar arteries are patent. Mild to moderate multifocal luminal narrowing of the posterior cerebral arteries. There is high-grade stenosis of the P2 segment right posterior cerebral artery. There is no aneurysm, additional high-grade stenosis, or proximal branch occlusion identified. Dural sinuses appear patent. Pulmonary emphysema. Intralobular septal thickening may represent a component of pulmonary edema. Postoperative and degenerative changes of the cervical spine. Left subclavian pacer. IMPRESSION: 1. No acute intracranial abnormality. 2. Multifocal stenoses of the posterior cerebral arteries, high-grade on the right. 3. Otherwise unremarkable CTA of the head and neck. 4. Pulmonary emphysema. 5. Severe chronic paranasal sinus disease. MRI OF THE BRAIN WITHOUT [id number] CLINICAL HISTORY: Transient ischemic attack. Slurred speech. COMPARISON STUDY: MRI of the brain November 07, 2022. Head CT and CTA of the head August 14, 2023. TECHNIQUE: Utilizing a 1.5 Zoila magnet and dedicated coil, multiplanar, multiecho imaging of the brain was performed without IV contrast. FINDINGS: There are no foci of restricted diffusion to suggest acute infarct. No acute intracranial hemorrhage, midline shift or mass effect is present. Ventricular system is unremarkable. Basal cisterns are patent. There are no extra-axial collections. Flow-voids for the major intracranial vessels are present. No intracranial masses identified on unenhanced exam. White matter T2 hyperintense foci are similar to previous study. Extensive sinus opacification has slightly progressed since MRI of November 07, 2022. IMPRESSION: 1. No acute intracranial findings. 2. Mild progression of extensive sinus opacification since previous MRI. Medications Administered Home Medications Medication Instructions Recorded Confirmed Last Taken montelukast 10 mg tablet 10 mg PO PM 04/08/19 10/09/23 08/21/23 ferrous sulfate 325 mg (65 mg 325 mg PO QAM 06/03/20 10/09/23 08/22/23 iron) tablet atorvastatin 20 mg tablet 20 mg PO QAM 11/26/21 10/09/23 08/22/23 cholecalciferol (vitamin D3) 50 100 mcg PO QAM 11/26/21 10/09/23 08/22/23 mcg (2,000 unit) capsule (Vitamin D3) levalbuterol tartrate 45 1 puff inhalation Q4 PRN Shortness 08/07/22 10/09/23 Unknown mcg/actuation aerosol inhaler Of Breath (Xopenex HFA) sertraline 100 mg tablet 150 mg PO QAM 08/07/22 10/09/23 08/22/23 cyanocobalamin (vitamin B-12) 100 100 mcg PO QAM 11/07/22 10/09/23 08/22/23 mcg tablet (Vitamin B-12) folic acid 1 mg tablet 1 mg PO QAM 11/07/22 10/09/23 08/22/23 tiotropium 2.5 mcg-olodaterol 2.5 2 puff inhalation QAM 11/07/22 10/09/23 08/22/23 mcg/actuation mist for inhalation (Stiolto Respimat) torsemide 10 mg tablet 10 mg PO QAM 11/07/22 10/09/23 08/22/23 ipratropium bromide 21 mcg (0.03 2 spray intranasal DAILY PRN 12/06/22 10/09/23 08/14/23 %) nasal spray rhinorrhea pantoprazole 40 mg tablet,delayed 40 mg PO BID #60 tabs 12/09/22 10/09/23 08/22/23 release allopurinol 300 mg tablet 300 mg PO HS 08/14/23 10/09/23 10/09/23 lorazepam 1 mg tablet 1 mg PO HS PRN sleep/anxiety 08/14/23 10/09/23 Unknown levothyroxine 125 mcg capsule 125 mcg PO QAM 08/22/23 10/09/23 08/22/23 apixaban 2.5 mg tablet (Eliquis) 2.5 mg PO AMHS 10/09/23 10/09/23 Unknown Active Medications Generic Name Dose Route Start Last Admin Trade Name Freq PRN Reason Stop Dose Admin Allopurinol 300 mg 10/10/23 21:00 10/15/23 20:00 Allopurinol 300 Mg Tab PO 11/09/23 20:59 300 mg HS JULIO CESAR Administration Apixaban 2.5 mg 10/10/23 09:00 10/16/23 08:30 Apixaban 2.5 Mg Tab PO 11/09/23 08:59 2.5 mg BID JULIO CESAR Administration Atorvastatin Calcium 20 mg 10/10/23 09:00 10/16/23 08:29 Atorvastatin 20 Mg Tab PO 11/09/23 08:59 20 mg QAM JULIO CESAR Administration Cyanocobalamin 100 mcg 10/10/23 09:00 10/16/23 08:30 Cyanocobalamin (B-12) 100 Mcg Tablet PO 11/09/23 08:59 100 mcg QAM JULIO CESAR Administration Ferrous Sulfate 325 mg 10/10/23 09:00 10/16/23 08:30 Ferrous Sulfate 325 Mg Tab PO 11/09/23 08:59 325 mg QAM JULIO CESAR Administration Fidaxomicin 200 mg 10/10/23 09:00 10/16/23 08:33 Fidaxomicin 200 Mg Tab PO 10/20/23 08:59 200 mg BID JULIO CESAR Administration Folic Acid 1 mg 10/10/23 09:00 10/16/23 08:29 Folic Acid 1 Mg Tab PO 11/09/23 08:59 1 mg QAM JULIO CESAR Administration Ceftriaxone Sodium 2,000 mg/ 50 mls @ 100 mls/hr 10/14/23 09:00 10/16/23 09:43 Dextrose IV 10/24/23 08:59 Infused QAM JULIO CESAR Infusion Metronidazole 500 mg in 100 mls @ 100 mls/hr 10/14/23 06:00 10/16/23 07:01 Flagyl IV 10/24/23 05:59 Infused Q8H JULIO CESAR Infusion Insulin Aspart 0 units 10/10/23 07:30 10/16/23 12:40 Insulin Aspart Per Unit Charge SC 11/09/23 07:29 Not Given ACHS JULIO CESAR Lactobacillus Acidophilus 2 cap 10/10/23 09:00 10/16/23 08:29 Advanced Probiotic 1250 Mg Capsule PO 11/09/23 08:59 2 cap DAILY JULIO CESAR Administration Levothyroxine Sodium 150 mcg 10/15/23 06:30 10/16/23 05:51 Levothyroxine Sodium 150 Mcg Tablet PO 11/14/23 06:29 150 mcg DAILYBB JULIO CESAR Administration Melatonin 3 mg 10/11/23 02:19 10/15/23 20:03 Melatonin 3 Mg Tab PO 11/10/23 02:18 3 mg HS PRN Administration Sleep Metoprolol Succinate 25 mg 10/13/23 21:00 10/16/23 08:29 Metoprolol Succ 25mg Ext Rel Tab PO 11/12/23 20:59 25 mg BID JULIO CESAR Administration Montelukast Sodium 10 mg 10/10/23 21:00 10/15/23 20:00 Montelukast Sodium 10 Mg Tablet PO 11/09/23 20:59 10 mg PM JULIO CESAR Administration Ondansetron HCl 4 mg 10/10/23 00:57 10/11/23 10:01 Ondansetron Inj 2 Mg/Ml 2 Ml Vial IV 11/09/23 00:56 4 mg Q6H PRN Administration Nausea Pantoprazole Sodium 40 mg 10/10/23 09:00 10/16/23 08:29 Pantoprazole 40 Mg Tab PO 03/17/24 08:59 40 mg BID JULIO CESAR Administration Polyethylene Glycol 17 gm 10/14/23 15:15 10/15/23 08:40 Polyethylene (Miralax) 17 Gm Pack PO 11/13/23 15:14 Not Given DAILY JULIO CESAR Senna/Docusate Sodium 1 tab 10/14/23 15:15 10/16/23 08:30 Docusate Sodium/Senna 50/8.6mg Tab PO 11/13/23 15:14 Not Given QAM JULIO CESAR Sertraline HCl 150 mg 10/10/23 09:00 10/16/23 08:29 Sertraline Hcl 50 Mg Tablet PO 11/09/23 08:59 150 mg QAM JULIO CESAR Administration Umeclidinium/Vilanterol 1 puffs 10/10/23 09:00 10/16/23 08:29 Umeclidinium/Vilanterol 62.5/25mcg 7 Puffs/Inhaler INH 11/09/23 08:59 1 puffs QAM JULIO CESAR Administration Vitamin D 100 mcg 10/10/23 09:00 10/16/23 08:30 Cholecalciferol 25 Mcg (1000 Units) Tab PO 11/09/23 08:59 100 mcg QAM JULIO CESAR Administration
[2023-10-17] MEDS: NYSTATIN SUSP 500,000 U/5 ML UDC PO SCH (12:17)
[2023-10-17] MEDS: CETIRIZINE HCL 10 MG TABLET PO SCH (12:18)
--- NOTE | 2023-10-17 12:30 | Cardiology Progress Note ---
Date of Service October 17, 2023 Assessment & Plan (1) Presence of Watchman left atrial appendage closure device: Plan: * Large BOB thrombus-- Continue Eliquis 2.5 mg twice daily. Follow-up BRENDAN already planned at [facility]. (2) Paroxysmal atrial fibrillation: Plan: * Longstanding history of paroxysmal atrial fibrillation. Has dual-chamber permanent pacemaker. * Sotalol recently discontinued due to renal insufficiency. Transitioned to metoprolol tartrate with increased dose to 25 mg twice daily, 10/12/2023. * Discontinue metoprolol tartrate in favor of metoprolol succinate 25 mg BID, 10/13/2023. * Most recent EKG revealed stable QT interval. * continue low dose Eliquis 2.5 mg for renal (3) Generalized weakness: Plan: Ongoing generalized weakness-- deconditioning likely contributing. CT of the head without bleed. 1. Recommend ongoing PT/OT while inpatient. Patient may benefit from rehab at discharge. Will defer to primary team. (4) Angio-edema: Plan: Per Neurology notes - perioral numbness may be angioedema, not TIA's. They recommended monitoring symptoms with contrast and evaluate any new medications She is not on YE/ARB Metoprolol succinate is new, but symptoms predate this initiation. monitor. Plan Case discussed with Dr. Snowden. Continue current medications. Will sign off. Please notify manager environmental cardiology provider with any additional questions or concerns I spent a total of 30 minutes on the date of service in preparation, delivery, and documentation of the care provided to the patient excluding any time spent in the performance of separately billed services. Abigail Goncalves Department of Cardiology, [facility] This chart was completed in part utilizing Speech Voice Recognition Software. Grammatical errors, random word insertions, pronoun errors, and incomplete se ntences are an occasional consequence of this system due to software limitations, ambient noise, and hardware issues. Any formal questions or concerns about the content, text, or information contained within the body of this dictation should be directly addressed to the provider for clarification. Admission and Anticipated Discharge Date Admission Date: October 09, 2023 Supervising Physician Co-Signing Physician Notes Attending attestation: Case reviewed with the advanced practitioner. I have personally performed a history and physical examination on the patient. I have reviewed the advanced practitioner's documentation on the date of service referenced in note, and I agree with, and take responsibility for the plan of care. -Pt with recurrent transient perioral numbness and "heavy tongue". Symptoms similar to those patient described to me on prior hospitalization and have ceased. Continue Eliquis. Dose is appropriate for pt's age and kidney function. Not on aspirin due to recurrent anemia. H/H stable at present. Resume prior to hospital treatment with torsemide 10 mg daily especially given IV fluid administration with IV antibiotic metronidazole. First dose of torsemide a.m. of 10/18/2023. Dr Deon royal starting 10/18/23, call with questions or concerns. Jerome Snowden, DO Subjective Patient sitting in chair. Resting comfortably. Abdominal pain improved today. No recurrent diarrhea overnight or this morning. No chest pain or dyspnea. No palpitations or tachypalpitations. She continues to feel weak. waiting to see if rehab is approved by her insurance. Patient had televisit with neurology yesterday for these episodes of perioral numbness and it was thought this may be due to angioedema. It was recommended to monitor symptoms in regards to contrast dye or medications. Not on YE/ARB. No current symptoms this morning. Head CT was negative this admission for similar symptoms Review of Systems Review of Systems: All systems reviewed & are unremarkable except as noted in HPI & below Physical Exam Constitutional: WD/WN, vitals as above Respiratory: normal respiratory effort, lungs clear to auscultation Cardiovascular: RRR, no murmur, no edema Chest (Breasts): Chest: + pacemaker Gastrointestinal (Abdomen): normal bowel sounds, soft, nontender, no hepatosplenomegaly Neurologic: PERRL, EOMI, accommodation nl, no face palsy, no dysarthria Results & Data Vital Signs (Past 12 Hours) Vital Signs Temp Pulse Pulse Resp BP BP Pulse Ox 10/17/23 09:19 36.3 C L 63 15 125/70 91 10/17/23 07:20 63 10/17/23 03:11 36.5 C 60 18 115/67 90 O2 Del Method 10/17/23 09:19 Room Air 10/17/23 07:20 10/17/23 03:11 Room Air Laboratory Results Intake and Output 10/16/23 10/17/23 10/17/23 22:59 06:59 14:59 Intake Total 750 / 1120 220 / 1120 Output Total Balance 749 / 1119 220 / 1119 Intake: IV 200 / 450 100 / 450 metroNIDAZOLE 500 mg In 100 ml 200 / 400 100 / 400 @ 100 mls/hr IV Q8H [facility] Rx#: [id number] Oral 550 / 670 120 / 670 Output: # Bowel Movements Other: # Unmeasured Voids 2 Weight 76 kg Weight Measurement Method Built in Bedscale Diagnostic Findings Telemetry reviewed: Paced in the 60's. No recurrent atrial fib RVR Medications Administered Current Inpatient Medications Acetaminophen (Acetaminophen 325 Mg Tab) 650 mg PO Q4H PRN PRN Reason: Pain or Fever Stop: 11/09/23 00:56 Allopurinol (Allopurinol 300 Mg Tab) 300 mg PO HS [facility] Stop: 11/09/23 20:59 Last Admin: 10/16/23 20:17 Dose: 300 mg Apixaban (Apixaban 2.5 Mg Tab) 2.5 mg PO BID [facility] Stop: 11/09/23 08:59 Last Admin: 10/17/23 10:01 Dose: 2.5 mg Atorvastatin Calcium (Atorvastatin 20 Mg Tab) 20 mg PO QAM [facility] Stop: 11/09/23 08:59 Last Admin: 10/17/23 09:59 Dose: 20 mg Cetirizine HCl (Cetirizine Hcl 10 Mg Tablet) 10 mg PO QAM [facility] Stop: 11/16/23 09:44 Last Admin: 10/17/23 12:18 Dose: 10 mg Cyanocobalamin (Cyanocobalamin (B-12) 100 Mcg Tablet) 100 mcg PO QAM [facility] Stop: 11/09/23 08:59 Last Admin: 10/17/23 09:59 Dose: 100 mcg Dextrose (Dextrose 50% 50 Ml Syringe) 25 - 50 ml IV UD PRN; Protocol PRN Reason: Hypoglycemia Protocol Stop: 11/09/23 00:56 Ferrous Sulfate (Ferrous Sulfate 325 Mg Tab) 325 mg PO QAM [facility] Stop: 11/09/23 08:59 Last Admin: 10/17/23 09:59 Dose: 325 mg Folic Acid (Folic Acid 1 Mg Tab) 1 mg PO QAM [facility] Stop: 11/09/23 08:59 Last Admin: 10/17/23 09:59 Dose: 1 mg Glucagon (Glucagon For Inj 1 Mg Vial) 1 mg SQ UD PRN; Protocol PRN Reason: Hypoglycemia Protocol Stop: 11/09/23 00:56 Glucose (Glucose 10 Tab/Tube) 4 - 8 tab PO UD PRN; Protocol PRN Reason: Hypoglycemia Treatment Stop: 11/09/23 00:56 Glucose (Glucose 40% Gel 15 Gm Tube) 15 - 30 gm PO UD PRN; Protocol PRN Reason: Hypoglycemia Protocol Stop: 11/09/23 00:56 Ceftriaxone Sodium 2,000 mg/ (Dextrose) 50 mls @ 100 mls/hr IV QAM [facility] Stop: 10/24/23 08:59 Last Admin: 10/17/23 09:45 Dose: Not Given Metronidazole (Flagyl) 500 mg in 100 mls @ 100 mls/hr IV Q8H [facility] Stop: 10/24/23 05:59 Last Infusion: 10/17/23 06:32 Dose: Infused Insulin Aspart (Insulin Aspart Per Unit Charge) 0 units SC ACHS [facility] Stop: 11/09/23 07:29 Last Admin: 10/17/23 12:22 Dose: Not Given Ipratropium Effie (Ipratropium Effie Nasal [place] 0.06% 15ml) 1 sprays OLVIN DAILY PRN PRN Reason: rhinorrhea Stop: 11/09/23 02:42 Lactobacillus Acidophilus (Advanced Probiotic 1250 Mg Capsule) 2 cap PO DAILY [facility] Stop: 11/09/23 08:59 Last Admin: 10/17/23 09:59 Dose: 2 cap Levalbuterol HCl (Levalbuterol Tartrate 15 Gm Hfa.Aer.Ad) 1 puffs INH Q4 PRN PRN Reason: Shortness Of Breath Stop: 11/09/23 00:56 Levothyroxine Sodium (Levothyroxine Sodium 150 Mcg Tablet) 150 mcg PO DAILYBB [facility] Stop: 11/14/23 06:29 Last Admin: 10/17/23 05:30 Dose: 150 mcg Lorazepam (Lorazepam 1 Mg Tab) 1 mg PO HS PRN PRN Reason: sleep/anxiety Stop: 11/09/23 00:56 Melatonin (Melatonin 3 Mg Tab) 3 mg PO HS PRN PRN Reason: Sleep Stop: 11/10/23 02:18 Last Admin: 10/16/23 20:15 Dose: 3 mg Metoprolol Succinate (Metoprolol Succ 25mg Ext Rel Tab) 25 mg PO BID [facility] Stop: 11/12/23 20:59 Last Admin: 10/17/23 10:00 Dose: 25 mg Miscellaneous (Carbohydrates For Hypoglycemia ) 15 - 30 gm PO UD PRN PRN Reason: Hypoglycemia Protocol Stop: 11/09/23 00:56 Montelukast Sodium (Montelukast Sodium 10 Mg Tablet) 10 mg PO PM [facility] CESAR Stop: 11/09/23 20:59 Last Admin: 10/16/23 20:16 Dose: 10 mg Nitroglycerin (Nitroglycerin Sl 0.4 Mg/Tab Tab) 0.4 mg SL Q5M PRN PRN Reason: Chest Pain Stop: 11/09/23 00:56 Nystatin (Nystatin Susp 500,000 U/5 Ml Udc) 5 ml PO QID [facility] Stop: 10/27/23 12:59 Last Admin: 10/17/23 12:17 Dose: 5 ml Ondansetron HCl (Ondansetron Inj 2 Mg/Ml 2 Ml Vial) 4 mg IV Q6H PRN PRN Reason: Nausea Stop: 11/09/23 00:56 Last Admin: 10/11/23 10:01 Dose: 4 mg Pantoprazole Sodium (Pantoprazole 40 Mg Tab) 40 mg PO BID [facility] Stop: 11/09/23 08:59 Last Admin: 10/17/23 10:00 Dose: 40 mg Phenylephrine HCl (Anusol Supp 1 Ea) 1 supp MS BID PRN PRN Reason: Hemorrhoids Stop: 11/10/23 10:43 Polyethylene Glycol (Polyethylene (Miralax) 17 Gm Pack) 17 gm PO DAILY [facility] Stop: 11/13/23 15:14 Last Admin: 10/15/23 08:40 Dose: Not Given Senna/Docusate Sodium (Docusate Sodium/Senna 50/8.6mg Tab) 1 tab PO QAM [facility] Stop: 11/13/23 15:14 Last Admin: 10/16/23 08:30 Dose: Not Given Sertraline HCl (Sertraline Hcl 50 Mg Tablet) 150 mg PO QAM [facility] Stop: 11/09/23 08:59 Last Admin: 10/17/23 09:59 Dose: 150 mg Umeclidinium/Vilanterol (Umeclidinium/Vilanterol 62.5/25mcg 7 Puffs/Inhaler) 1 puffs INH QAM [facility] Stop: 11/09/23 08:59 Last Admin: 10/17/23 09:59 Dose: 1 puffs Vitamin D (Cholecalciferol 25 Mcg (1000 Units) Tab) [address] [facility] Stop: 11/09/23 08:59 Last Admin: 10/17/23 09:59 Dose: 100 mcg
--- NOTE | 2023-10-17 16:16 | Hospitalist Progress Note ---
Date of Service October 17, 2023 Assessment & Plan (1) Generalized weakness: Plan: per previous hospitalist notes with addendum: Ms. Barakat is an 83-year-old female with past medically history significant for type 2 diabetes, diabetic retinopathy, CKD stage III, hypercholesterolemia, obstructive sleep apnea, moderate persistent asthma, paroxysmal atrial fibrillation, s/p watchman's device, history of mitral valve clip implantation, sick sinus syndrome s/p pacemaker, pulmonary hypertension, peripheral vascular disease, chronic diastolic CHF, angiodysplasia of colon, aneurysm of left carotid artery, severe tricuspid regurgitation, CAD , GERD, Mnire's disease, iron deficiency anemia, depression, history of endometrial cancer , TIA presented 10/09 with weakness and diarrhea. Patient on admission noted to have hgb 10, wbc 11.34, mild hyponatremia, TSH 10 iso recent illness/normal T4, baseline trop elevation 26.5, and mild LFT elevations consistent with prior. Renal function appears at baseline per trends since 2022. Per admitting hospitalist: "She was in the hospital in early August of this year with weakness and at the time she also found to have hemoglobin of 6.5 requiring 2 units of PRBCs. And also was treated for sinusitis with oral doxycycline. Anemia workup was done with peripheral smear which showed occasional teardrop cells thought to be related to chronic disease but myelodysplastic syndrome has not been ruled out and further hematology evaluation was recommended. She also received 5-day course of IV Venofer. Seen by GI and recommended conservative management at that time. She also seen by nephrology for TIFFANY on chronic disease. Symptoms improved with transfusion. Her sotalol dose was reduced to 40 mg daily due to renal insufficiency. Followed up with cardiology in first week of September and seems she underwent follow-up BRENDAN for a Watchman procedure in August and was noted large thrombus on device. At that point her aspirin was discontinued she was started Eliquis 2.5 mg twice daily. There is a plan to repeat echo to be completed near future. And also plan for endoscopy and colonoscopy in near future. After last admission in August patient was in rehab. As per son after coming from home she is been gradually getting weak. She ambulates with a rollator walker. Lately having diarrhea. Not able to eat much. Poor appetite. Recently she fell from the commode but did not totally fall down. Yesterday in the parking lot of [employer] she almost fell down. Because of diarrhea and weakness son brought her back to the hospital today." Patient endorses mild subjective improvement. CT AB P yesterday revealed acute diverticulitis Initially started on cipro/flagyl, but prolonged QTc and SVT noted overnight. Transitioned to ertapenem. After review of allergies, determined with pharmacy t hat CTX/flagyl will be acceptable as patient has tolerated CTX previously, despite documented allergies of keflex. Noted to have bouts of SVT while ambulating. Discontinued off of sotalol recently, no other rate control in place. Place on metoprolol tartrate on 10/12 to add rate control given bouts of tachycardia. Patient tolerating low fiber diet without issue and pain free. Remaining concern is weakness--which proved to result in unwitnessed fall over night on 10/13. Patient without LOC/dizziness/lightheadedness, just felt "knees" get weak. Family and patient express notable concern for falls and progress decline and wish to pursue rehab if possible. Referrals placed by case management. #Acute abdominal pain *resolving #Acute sigmoid diverticulitis *resolving #Acute Diarrhea *improving #Enteroaggreative E Coli #C. Diff gene positive Back positive for c diff gene and EAEC -Complete course of Dificid, 02/01 -Encourage PO Advance diet--low fiber -Ertapenem b80--[id number] to IV ctx/flagyl to complete course day -BMP in am -KUB given "not having normal BM" assess for stool burden if any/ overflow? CT abdomen pelvis: 1. Acute sigmoid diverticulitis. Inflamed sigmoid diverticulum with mild inflammation. No free air. No abscess. 2. Mild interstitial pulmonary edema. Subpleural groundglass opacities within the lower lungs could reflect a superimposed infectious process or alveolar pulmonary edema. 3. No bowel obstruction. Normal appendix. 10/15 still having diarrhea, 4x today already on Ceftri + Doxy, Fidaxomicin will consult GI 10/16 Diarrhea seems to be improving Discussed with GI service DC for fidaxomicin as patient did not have any positive C. difficile toxin based on review of lab tests Continue ceftriaxone plus Flagyl day number 7 out of 10 for acute diverticulitis Probiotics daily 10/17 Diarrhea seems to have resolved today so far Ceftriaxone changed to aztreonam in light of possible angioedema episodes Continue Flagyl Needs 3 more days of IV antibiotics Episodes of perioral numbness, tongue swelling, slurred speech Possible angioedema Neurology service consulted, symptoms felt to be secondary to angioedema as opposed to TIA symptoms Zyrtec daily started Ceftriaxone changed to aztreonam Monitor closely #CKD stage IV GFR consistently in ~mid 29s since 11/2022 Creatinine was around 1.7-1.8 last admission Torsemide resumed #Chronic Heart failure with preserved ejection fraction Holding torsemide Monitor for volume overload, resume diuretic as soon as possible Torsemide resumed #SVT #Paroxysmal atrial fibrillation s/p Watchman device #History of mitral valve clip implantation Echo in August showed large thrombus on Watchman device On Eliquis Currently not on any rate controlling medications Following with cardiology Recently taken off of Sotalol in 08/2023 -Started metoprolol 12.5mg BID Cards consult -Continue to Metoprolol XL 25mg BID / HR stable #Sick sinus syndrome #S/p pacemaker Monitor on tele #Generalized weakness likely related to ongoing diarrhea, poor nutrition -Treat infection below -PT/OT--plan for rehab #Hypothyroidism Continue home Synthroid TSH 10, normal T4 1.2 Notably elevated to 9 on prior admits Will increase to 150mcg qam given elevated trends and weakness, needs OP follow up #Chronic JALEEL Anemia Iron deficiency anemia Hgb down to 8.6 (baseline 7-8), likely hemoconcentrated from diarrhea/dehydration as all cell lines notably decreased Last admission she received 2 units of PRBCs and IV Venofer There is a plan for OP EGD and colonoscopy Patient follows with Dr. 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 sheer stress 2/[address] CBC stable #Abnormal liver enzymes Chronic mild elevation in AST, ALP No RUQ tenderness, no cholecystitis, symptoms resolved #Chronic Troponin elevation -Plateaued, stable elevation in 20s CTM #Diabetes Mellitus Type II, with CKD Not on meds, A1C 10/10 6.1% Insulin sliding scale #Hyperlipidemia On statin #GERD On Protonix #Depression On Zoloft #Asthma Stable Continue home inhalers DVT prophylaxis Eliquis Disposition Med/tele Full code, per prior hospitalist " if there is chance of recovery" Disposition pending plan of care discussed with patient and her daughter Kathy in detail and at length all questions answered they are understanding, agreeable, comfortable with the plan of care discussed with Kathy re: peer to peer evaluation I had with the [facility] insurance medical records manager yesterday Relayed to her that denial to [facility] was upheld, but patient approved for halfway facility She expressed frustration over this decision, reassured that I will assist in any way possible for patient to be accepted back to [facility] Discussed with case work aide Emelina, requested to call patient's daughter as soon as possible to determine further steps on this matter Admission and Anticipated Discharge Date Admission Date: October 09, 2023 Subjective Follow-up for acute diverticulitis, etc. Seen resting in bedside chair, comfortable, good spirits States she feels okay overall No BM so far today No abdominal pain, nausea vomiting, fevers or chills No recurrence of perioral numbness, tongue swelling Does report some sore throat this morning No other new symptoms Review of Systems Review of Systems: all noted and negative except for above Physical Exam Physical Exam: General- oriented x 3, not in distress, speaks in sentences with no effort or accessory muscle use Mouth-positive oral thrush Eyes- anicteric Neck- no JVD Lungs- clear breath sounds bilaterally, no rales/wheezes Heart- normal rate, regular rhythm; no murmurs Abdomen- normal bowel sounds, nondistended, soft, nontender Extremities- no pretibial edema, no calf tenderness Neuro- alert, oriented x 3; no gross focal neurologic deficits Skin- warm & dry Results & Data Results & Data Vital Signs (Past 12 Hours) Vital Signs Temp Pulse Pulse Resp BP BP Pulse Ox 10/17/23 15:00 36.7 C 62 16 131/76 95 10/17/23 13:06 36.7 C 62 15 130/73 96 10/17/23 10:00 10/17/23 09:19 36.3 C L 63 15 125/70 91 10/17/23 07:20 63 O2 Del Method 10/17/23 15:00 Room Air 10/17/23 13:06 Room Air 10/17/23 10:00 Room Air 10/17/23 09:19 Room Air 10/17/23 07:20 all noted and reviewed including below
[2023-10-17] MEDS: AZTREONAM 2,000 MG in DEXTROSE 5% MINI-B 100 ML IV SCH (16:21)
[2023-10-18 05:22] LABS: Creatinine Clr Calc Pharmacy 26.8 ml/min; Est GFR (African American) 33.7 ml/min; Est GFR (Non-African American) 29.1 ml/min
[2023-10-18] MEDS: TORSEMIDE 10 MG TAB PO SCH (08:21)
--- NOTE | 2023-10-18 18:02 | Hospitalist Progress Note ---
Date of Service October 18, 2023 Assessment & Plan (1) Generalized weakness: Plan: per previous hospitalist notes with addendum: Ms. Barakat is an 83-year-old female with past medically history significant for type 2 diabetes, diabetic retinopathy, CKD stage III, hypercholesterolemia, obstructive sleep apnea, moderate persistent asthma, paroxysmal atrial fibrillation, s/p watchman's device, history of mitral valve clip implantation, sick sinus syndrome s/p pacemaker, pulmonary hypertension, peripheral vascular disease, chronic diastolic CHF, angiodysplasia of colon, aneurysm of left carotid artery, severe tricuspid regurgitation, CAD , GERD, Mnire's disease, iron deficiency anemia, depression, history of endometrial cancer , TIA presented 10/09 with weakness and diarrhea. Patient on admission noted to have hgb 10, wbc 11.34, mild hyponatremia, TSH 10 iso recent illness/normal T4, baseline trop elevation 26.5, and mild LFT elevations consistent with prior. Renal function appears at baseline per trends since 2022. Per admitting hospitalist: "She was in the hospital in early August of this year with weakness and at the time she also found to have hemoglobin of 6.5 requiring 2 units of PRBCs. And also was treated for sinusitis with oral doxycycline. Anemia workup was done with peripheral smear which showed occasional teardrop cells thought to be related to chronic disease but myelodysplastic syndrome has not been ruled out and further hematology evaluation was recommended. She also received 5-day course of IV Venofer. Seen by GI and recommended conservative management at that time. She also seen by nephrology for TIFFANY on chronic disease. Symptoms improved with transfusion. Her sotalol dose was reduced to 40 mg daily due to renal insufficiency. Followed up with cardiology in first week of September and seems she underwent follow-up BRENDAN for a Watchman procedure in August and was noted large thrombus on device. At that point her aspirin was discontinued she was started Eliquis 2.5 mg twice daily. There is a plan to repeat echo to be completed near future. And also plan for endoscopy and colonoscopy in near future. After last admission in August patient was in rehab. As per son after coming from home she is been gradually getting weak. She ambulates with a rollator walker. Lately having diarrhea. Not able to eat much. Poor appetite. Recently she fell from the commode but did not totally fall down. Yesterday in the parking lot of [employer] she almost fell down. Because of diarrhea and weakness son brought her back to the hospital today." Patient endorses mild subjective improvement. CT AB P yesterday revealed acute diverticulitis Initially started on cipro/flagyl, but prolonged QTc and SVT noted overnight. Transitioned to ertapenem. After review of allergies, determined with pharmacy t hat CTX/flagyl will be acceptable as patient has tolerated CTX previously, despite documented allergies of keflex. Noted to have bouts of SVT while ambulating. Discontinued off of sotalol recently, no other rate control in place. Place on metoprolol tartrate on 10/12 to add rate control given bouts of tachycardia. Patient tolerating low fiber diet without issue and pain free. Remaining concern is weakness--which proved to result in unwitnessed fall over night on 10/13. Patient without LOC/dizziness/lightheadedness, just felt "knees" get weak. Family and patient express notable concern for falls and progress decline and wish to pursue rehab if possible. Referrals placed by case management. #Acute abdominal pain *resolving #Acute sigmoid diverticulitis *resolving #Acute Diarrhea *improving #Enteroaggreative E Coli #C. Diff gene positive Back positive for c diff gene and EAEC -Complete course of Dificid, 02/01 -Encourage PO Advance diet--low fiber -Ertapenem m48--[id number] to IV ctx/flagyl to complete course day -BMP in am -KUB given "not having normal BM" assess for stool burden if any/ overflow? CT abdomen pelvis: 1. Acute sigmoid diverticulitis. Inflamed sigmoid diverticulum with mild inflammation. No free air. No abscess. 2. Mild interstitial pulmonary edema. Subpleural groundglass opacities within the lower lungs could reflect a superimposed infectious process or alveolar pulmonary edema. 3. No bowel obstruction. Normal appendix. 10/15 still having diarrhea, 4x today already on Ceftri + Doxy, Fidaxomicin will consult GI 10/16 Diarrhea seems to be improving Discussed with GI service DC for fidaxomicin as patient did not have any positive C. difficile toxin based on review of lab tests Continue ceftriaxone plus Flagyl day number 7 out of 10 for acute diverticulitis Probiotics daily 10/17 Diarrhea seems to have resolved today so far Ceftriaxone changed to aztreonam in light of possible angioedema episodes Continue Flagyl Needs 3 more days of IV antibiotics 10/18 improving Episodes of perioral numbness, tongue swelling, slurred speech Possible angioedema Neurology service consulted, symptoms felt to be secondary to angioedema as opposed to TIA symptoms Zyrtec daily started Ceftriaxone changed to aztreonam Monitor closely 10/18 improving #CKD stage IV GFR consistently in ~mid 29s since 11/2022 Creatinine was around 1.7-1.8 last admission Torsemide resumed #Chronic Heart failure with preserved ejection fraction Holding torsemide Monitor for volume overload, resume diuretic as soon as possible Torsemide resumed monitor crea #SVT #Paroxysmal atrial fibrillation s/p Watchman device #History of mitral valve clip implantation Echo in August showed large thrombus on Watchman device On Eliquis Currently not on any rate controlling medications Following with cardiology Recently taken off of Sotalol in 08/2023 -Started metoprolol 12.5mg BID Cards consult -Continue to Metoprolol XL 25mg BID 2/24 HR stable #Sick sinus syndrome #S/p pacemaker Monitor on tele #Generalized weakness likely related to ongoing diarrhea, poor nutrition -Treat infection below -PT/OT--plan for rehab #Hypothyroidism Continue home Synthroid TSH 10, normal T4 1.2 Notably elevated to 9 on prior admits Will increase to 150mcg qam given elevated trends and weakness, needs OP follow up #Chronic JALEEL Anemia Iron deficiency anemia Hgb down to 8.6 (baseline 7-8), likely hemoconcentrated from diarrhea/dehydration as all cell lines notably decreased Last admission she received 2 units of PRBCs and IV Venofer There is a plan for OP EGD and colonoscopy Patient follows with Dr. 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 sheer stress 2/[address] CBC stable #Abnormal liver enzymes Chronic mild elevation in AST, ALT No RUQ tenderness, no cholecystitis, symptoms resolved #Chronic Troponin elevation -Plateaued, stable elevation in 20s CTM #Diabetes Mellitus Type II, with CKD Not on meds, A1C 10/10 6.1% Insulin sliding scale #Hyperlipidemia On statin #GERD On Protonix #Depression On Zoloft #Asthma Stable Continue home inhalers DVT prophylaxis Eliquis Disposition Med/tele Full code, per prior hospitalist " if there is chance of recovery" Disposition pending Admission and Anticipated Discharge Date Admission Date: October 09, 2023 Subjective ff up for acute diverticulitis, etc seen resting in bed, sleeping, easily awakened states she feels fine overall but still feels weak diarrhea continues to improve no recurrence of oral numbness, slurred speech no other new symptoms Review of Systems Review of Systems: all noted and negative except for above Physical Exam Physical Exam: General- oriented x 3, not in distress, speaks in sentences with no effort or accessory muscle use Eyes- anicteric Neck- no JVD Lungs- clear breath sounds bilaterally Heart- normal rate, regular rhythm; no murmurs Abdomen- normal bowel sounds, nondistended, soft, no tenderness Extremities- no pretibial edema, no calf tenderness Neuro- alert, oriented x 3; no gross focal neurologic deficits Skin- warm & dry Results & Data Results & Data Vital Signs (Past 12 Hours) Vital Signs Temp Pulse Pulse Resp BP BP Pulse Ox 10/18/23 15:35 36.2 C L 61 18 119/69 94 10/18/23 15:26 63 10/18/23 12:00 36.4 C L 60 16 120/71 96 10/18/23 08:29 36.7 C 63 15 119/62 95 10/18/23 07:30 64 O2 Del Method 10/18/23 15:35 Room Air 10/18/23 15:26 10/18/23 12:00 Room Air 10/18/23 08:29 Room Air 10/18/23 07:30
[2023-10-18] MEDS: AZTREONAM 2,000 MG in DEXTROSE 5% MINI-B 100 ML IV SCH (23:04)
[2023-10-19 06:02] LABS: Creatinine Clr Calc Pharmacy 34.4 ml/min; Est GFR (African American) 45.6 ml/min; Est GFR (Non-African American) 39.4 ml/min
[2023-10-19 09:05] LABS: Basophils # (auto) 0.05 K/uL (0.00-0.20); Basophils % (auto) 0.6 %; Eosinophils # (auto) 0.56 K/uL (0.00-0.50); Eosinophils % (auto) 6.5 %; Hematocrit (blood only) 27.4 % (37.0-47.0); Hemoglobin 8.6 g/dl (12.0-16.0); Immature Granulocytes # (auto) 0.06 K/uL (0.01-0.20); Immature Granulocytes % (auto) 0.7 %; Lymphocytes # (auto) 0.78 K/uL (1.20-3.40); Mean Corpuscular Hemoglobin 30.2 pg (25.0-34.0); Mean Corpuscular Hgb Conc 31.4 g/dL (32.0-36.0); Mean Corpuscular Volume 96.1 fL (80.0-100.0); Mean Platelet Volume 10.7 fL (9.4-12.4); Monocytes % (auto) 9.3 %; Neutrophils # (auto) 6.37 K/uL (1.40-6.50); Neutrophils % (auto) 73.9 %; Nucleated RBC # (auto) 0.02 K/uL (0.00-0.12); Nucleated RBC % (auto) 0.2 %; Platelet Count 210 K/uL (130-400); RDW Coefficient of Variation 17.3 % (11.5-14.5); RDW Standard Deviation 60.3 fL (36.4-46.3); Red Blood Count 2.85 M/uL (4.20-5.40); White Blood Count 8.62 K/ul (4.8-10.8)
[2023-10-19 09:07] LABS: BUN Creatinine Ratio 25.4 (10-20); Calcium 9.1 mg/dl (8.6-10.3); Potassium 4.2 mmol/L (3.5-5.1)
--- NOTE | 2023-10-19 14:35 | Hospitalist Progress Note ---
Date of Service October 19, 2023 Assessment & Plan (1) Generalized weakness: Plan: per previous hospitalist notes with addendum: Ms. Barakat is an 83-year-old female with past medically history significant for type 2 diabetes, diabetic retinopathy, CKD stage III, hypercholesterolemia, obstructive sleep apnea, moderate persistent asthma, paroxysmal atrial fibrillation, s/p watchman's device, history of mitral valve clip implantation, sick sinus syndrome s/p pacemaker, pulmonary hypertension, peripheral vascular disease, chronic diastolic CHF, angiodysplasia of colon, aneurysm of left carotid artery, severe tricuspid regurgitation, CAD , GERD, Mnire's disease, iron deficiency anemia, depression, history of endometrial cancer , TIA presented 10/09 with weakness and diarrhea. Patient on admission noted to have hgb 10, wbc 11.34, mild hyponatremia, TSH 10 iso recent illness/normal T4, baseline trop elevation 26.5, and mild LFT elevations consistent with prior. Renal function appears at baseline per trends since 2022. Per admitting hospitalist: "She was in the hospital in early August of this year with weakness and at the time she also found to have hemoglobin of 6.5 requiring 2 units of PRBCs. And also was treated for sinusitis with oral doxycycline. Anemia workup was done with peripheral smear which showed occasional teardrop cells thought to be related to chronic disease but myelodysplastic syndrome has not been ruled out and further hematology evaluation was recommended. She also received 5-day course of IV Venofer. Seen by GI and recommended conservative management at that time. She also seen by nephrology for TIFFANY on chronic disease. Symptoms improved with transfusion. Her sotalol dose was reduced to 40 mg daily due to renal insufficiency. Followed up with cardiology in first week of September and seems she underwent follow-up BRENDAN for a Watchman procedure in August and was noted large thrombus on device. At that point her aspirin was discontinued she was started Eliquis 2.5 mg twice daily. There is a plan to repeat echo to be completed near future. And also plan for endoscopy and colonoscopy in near future. After last admission in August patient was in rehab. As per son after coming from home she is been gradually getting weak. She ambulates with a rollator walker. Lately having diarrhea. Not able to eat much. Poor appetite. Recently she fell from the commode but did not totally fall down. Yesterday in the parking lot of [employer] she almost fell down. Because of diarrhea and weakness son brought her back to the hospital today." Patient endorses mild subjective improvement. CT AB P yesterday revealed acute diverticulitis Initially started on cipro/flagyl, but prolonged QTc and SVT noted overnight. Transitioned to ertapenem. After review of allergies, determined with pharmacy t hat CTX/flagyl will be acceptable as patient has tolerated CTX previously, despite documented allergies of keflex. Noted to have bouts of SVT while ambulating. Discontinued off of sotalol recently, no other rate control in place. Place on metoprolol tartrate on 10/12 to add rate control given bouts of tachycardia. Patient tolerating low fiber diet without issue and pain free. Remaining concern is weakness--which proved to result in unwitnessed fall over night on 10/13. Patient without LOC/dizziness/lightheadedness, just felt "knees" get weak. Family and patient express notable concern for falls and progress decline and wish to pursue rehab if possible. Referrals placed by case management. #Acute abdominal pain *resolving #Acute sigmoid diverticulitis *resolving #Acute Diarrhea *improving #Enteroaggreative E Coli #C. Diff gene positive Back positive for c diff gene and EAEC -Complete course of Dificid, 02/01 -Encourage PO Advance diet--low fiber -Ertapenem p49--[id number] to IV ctx/flagyl to complete course day -BMP in am -KUB given "not having normal BM" assess for stool burden if any/ overflow? CT abdomen pelvis: 1. Acute sigmoid diverticulitis. Inflamed sigmoid diverticulum with mild inflammation. No free air. No abscess. 2. Mild interstitial pulmonary edema. Subpleural groundglass opacities within the lower lungs could reflect a superimposed infectious process or alveolar pulmonary edema. 3. No bowel obstruction. Normal appendix. 10/15 still having diarrhea, 4x today already on Ceftri + Doxy, Fidaxomicin will consult GI 10/16 Diarrhea seems to be improving Discussed with GI service DC for fidaxomicin as patient did not have any positive C. difficile toxin based on review of lab tests Continue ceftriaxone plus Flagyl day number 7 out of 10 for acute diverticulitis Probiotics daily 10/17 Diarrhea seems to have resolved today so far Ceftriaxone changed to aztreonam in light of possible angioedema episodes Continue Flagyl Needs 3 more days of IV antibiotics 10/18 improving 10/19 Had 2 episodes of diarrhea since last night Repeat C. difficile stool test If negative, initiate Imodium or Lomotil Positive IV antibiotic should be today Episodes of perioral numbness, tongue swelling, slurred speech Possible angioedema Neurology service consulted, symptoms felt to be secondary to angioedema as opposed to TIA symptoms Zyrtec daily started Ceftriaxone changed to aztreonam Monitor closely 10/19 improvd #CKD stage IV GFR consistently in ~mid 29s since 11/2022 Creatinine was around 1.7-1.8 last admission Torsemide resumed Creatinine actually improved, now 1.2 #Chronic Heart failure with preserved ejection fraction Holding torsemide Monitor for volume overload, resume diuretic as soon as possible Torsemide resumed monitor crea, now 1.2 #SVT #Paroxysmal atrial fibrillation s/p Watchman device #History of mitral valve clip implantation Echo in August showed large thrombus on Watchman device On Eliquis Currently not on any rate controlling medications Following with cardiology Recently taken off of Sotalol in 08/2023 -Started metoprolol 12.5mg BID Cards consult -Continue to Metoprolol XL 25mg BID 10/19 HR stable #Sick sinus syndrome #S/p pacemaker Monitor on tele #Generalized weakness likely related to ongoing diarrhea, poor nutrition -Treat infection below -PT/OT--plan for rehab #Hypothyroidism Continue home Synthroid TSH 10, normal T4 1.2 Notably elevated to 9 on prior admits Will increase to 150mcg qam given elevated trends and weakness, needs OP follow up #Chronic JALEEL Anemia Iron deficiency anemia Hgb down to 8.6 (baseline 7-8), likely hemoconcentrated from diarrhea/dehydration as all cell lines notably decreased Last admission she received 2 units of PRBCs and IV Venofer There is a plan for OP EGD and colonoscopy Patient follows with Dr. 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 sheer stress 2/ clip n place CBC stable #Abnormal liver enzymes Chronic mild elevation in AST, ALT No RUQ tenderness, no cholecystitis, symptoms resolved #Chronic Troponin elevation -Plateaued, stable elevation in 20s CTM #Diabetes Mellitus Type II, with CKD Not on meds, A1C 10/10 6.1% Insulin sliding scale #Hyperlipidemia On statin #GERD On Protonix #Depression On Zoloft #Asthma Stable Continue home inhalers DVT prophylaxis Eliquis Disposition Med/tele Full code, per prior hospitalist " if there is chance of recovery" Disposition pending Admission and Anticipated Discharge Date Admission Date: October 09, 2023 Subjective Follow-up for acute diverticulitis, diarrhea, etc. Seen resting in bedside chair, comfortable, not in distress In good spirits States she had diarrhea last night and this morning, mostly liquid No blood No abdominal pain, nausea No fevers or chills No other new symptoms Review of Systems Review of Systems: all noted and negative except for above Physical Exam Physical Exam: General- oriented x 2, not in distress, speaks in sentences with no effort or accessory muscle use Eyes- anicteric Neck- no JVD Lungs- clear BS BL No crackles No wheezing Heart- normal rate, regular rhythm; no murmurs Abdomen- normal bowel sounds, nondistended, soft, no tenderness Extremities- no pretibial edema, no calf tenderness Neuro- alert, oriented x 3; no gross focal neurologic deficits Skin- warm & dry Results & Data Results & Data Vital Signs (Past 12 Hours) Vital Signs Temp Pulse Pulse Resp BP BP Pulse Ox 10/19/23 11:33 36.3 C L 60 18 127/65 96 10/19/23 07:58 36.3 C L 62 18 126/75 94 10/19/23 07:30 62 10/19/23 03:10 36.3 C L 62 18 110/67 91 O2 Del Method 10/19/23 11:33 Room Air 10/19/23 07:58 Room Air 10/19/23 07:30 10/19/23 03:10 Room Air all noted and reviewed including below
[2023-10-19] MEDS: AZTREONAM 2,000 MG in DEXTROSE 5% MINI-B 100 ML IV SCH (18:31)
[2023-10-20 12:03] LABS: Creatinine Clr Calc Pharmacy 29.4 ml/min; Est GFR (African American) 38.5 ml/min; Est GFR (Non-African American) 33.2 ml/min
--- NOTE | 2023-10-20 19:11 | Hospitalist Progress Note ---
Date of Service October 20, 2023 Assessment & Plan (1) Generalized weakness: Plan: per previous hospitalist notes with addendum: Ms. Barakat is an 83-year-old female with past medically history significant for type 2 diabetes, diabetic retinopathy, CKD stage III, hypercholesterolemia, obstructive sleep apnea, moderate persistent asthma, paroxysmal atrial fibrillation, s/p watchman's device, history of mitral valve clip implantation, sick sinus syndrome s/p pacemaker, pulmonary hypertension, peripheral vascular disease, chronic diastolic CHF, angiodysplasia of colon, aneurysm of left carotid artery, severe tricuspid regurgitation, CAD , GERD, Mnire's disease, iron deficiency anemia, depression, history of endometrial cancer , TIA presented 10/09 with weakness and diarrhea. Patient on admission noted to have hgb 10, wbc 11.34, mild hyponatremia, TSH 10 iso recent illness/normal T4, baseline trop elevation 26.5, and mild LFT elevations consistent with prior. Renal function appears at baseline per trends since 2022. Per admitting hospitalist: "She was in the hospital in early August of this year with weakness and at the time she also found to have hemoglobin of 6.5 requiring 2 units of PRBCs. And also was treated for sinusitis with oral doxycycline. Anemia workup was done with peripheral smear which showed occasional teardrop cells thought to be related to chronic disease but myelodysplastic syndrome has not been ruled out and further hematology evaluation was recommended. She also received 5-day course of IV Venofer. Seen by GI and recommended conservative management at that time. She also seen by nephrology for TIFFANY on chronic disease. Symptoms improved with transfusion. Her sotalol dose was reduced to 40 mg daily due to renal insufficiency. Followed up with cardiology in first week of September and seems she underwent follow-up BRENDAN for a Watchman procedure in August and was noted large thrombus on device. At that point her aspirin was discontinued she was started Eliquis 2.5 mg twice daily. There is a plan to repeat echo to be completed near future. And also plan for endoscopy and colonoscopy in near future. After last admission in August patient was in rehab. As per son after coming from home she is been gradually getting weak. She ambulates with a rollator walker. Lately having diarrhea. Not able to eat much. Poor appetite. Recently she fell from the commode but did not totally fall down. Yesterday in the parking lot of [employer] she almost fell down. Because of diarrhea and weakness son brought her back to the hospital today." Patient endorses mild subjective improvement. CT AB P yesterday revealed acute diverticulitis Initially started on cipro/flagyl, but prolonged QTc and SVT noted overnight. Transitioned to ertapenem. After review of allergies, determined with pharmacy t hat CTX/flagyl will be acceptable as patient has tolerated CTX previously, despite documented allergies of keflex. Noted to have bouts of SVT while ambulating. Discontinued off of sotalol recently, no other rate control in place. Place on metoprolol tartrate on 10/12 to add rate control given bouts of tachycardia. Patient tolerating low fiber diet without issue and pain free. Remaining concern is weakness--which proved to result in unwitnessed fall over night on 10/13. Patient without LOC/dizziness/lightheadedness, just felt "knees" get weak. Family and patient express notable concern for falls and progress decline and wish to pursue rehab if possible. Referrals placed by case management. #Acute abdominal pain *resolving #Acute sigmoid diverticulitis *resolving #Acute Diarrhea *improving #Enteroaggreative E Coli #C. Diff gene positive Back positive for c diff gene and EAEC -Complete course of Dificid, 02/01 -Encourage PO Advance diet--low fiber -Ertapenem q49--[id number] to IV ctx/flagyl to complete course day -BMP in am -KUB given "not having normal BM" assess for stool burden if any/ overflow? CT abdomen pelvis: 1. Acute sigmoid diverticulitis. Inflamed sigmoid diverticulum with mild inflammation. No free air. No abscess. 2. Mild interstitial pulmonary edema. Subpleural groundglass opacities within the lower lungs could reflect a superimposed infectious process or alveolar pulmonary edema. 3. No bowel obstruction. Normal appendix. 10/15 still having diarrhea, 4x today already on Ceftri + Doxy, Fidaxomicin will consult GI 10/16 Diarrhea seems to be improving Discussed with GI service DC for fidaxomicin as patient did not have any positive C. difficile toxin based on review of lab tests Continue ceftriaxone plus Flagyl day number 7 out of 10 for acute diverticulitis Probiotics daily 10/17 Diarrhea seems to have resolved today so far Ceftriaxone changed to aztreonam in light of possible angioedema episodes Continue Flagyl Needs 3 more days of IV antibiotics 10/18 improving 10/19 Had 2 episodes of diarrhea since last night Repeat C. difficile stool test If negative, initiate Imodium or Lomotil Positive IV antibiotic should be today Episodes of perioral numbness, tongue swelling, slurred speech Possible angioedema Neurology service consulted, symptoms felt to be secondary to angioedema as opposed to TIA symptoms Zyrtec daily started Ceftriaxone changed to aztreonam Monitor closely 10/19 improvd #CKD stage IV GFR consistently in ~mid 29s since 11/2022 Creatinine was around 1.7-1.8 last admission Torsemide resumed Creatinine actually improved, now 1.2 #Chronic Heart failure with preserved ejection fraction Holding torsemide Monitor for volume overload, resume diuretic as soon as possible Torsemide resumed monitor crea, now 1.2 #SVT #Paroxysmal atrial fibrillation s/p Watchman device #History of mitral valve clip implantation Echo in August showed large thrombus on Watchman device On Eliquis Currently not on any rate controlling medications Following with cardiology Recently taken off of Sotalol in 08/2023 -Started metoprolol 12.5mg BID Cards consult -Continue to Metoprolol XL 25mg BID 10/19 HR stable #Sick sinus syndrome #S/p pacemaker Monitor on tele #Generalized weakness likely related to ongoing diarrhea, poor nutrition -Treat infection below -PT/OT--plan for rehab #Hypothyroidism Continue home Synthroid TSH 10, normal T4 1.2 Notably elevated to 9 on prior admits Will increase to 150mcg qam given elevated trends and weakness, needs OP follow up #Chronic JALEEL Anemia Iron deficiency anemia Hgb down to 8.6 (baseline 7-8), likely hemoconcentrated from diarrhea/dehydration as all cell lines notably decreased Last admission she received 2 units of PRBCs and IV Venofer There is a plan for OP EGD and colonoscopy Patient follows with Dr. 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 sheer stress 2/ clip n place CBC stable #Abnormal liver enzymes Chronic mild elevation in AST, ALT No RUQ tenderness, no cholecystitis, symptoms resolved #Chronic Troponin elevation -Plateaued, stable elevation in 20s CTM #Diabetes Mellitus Type II, with CKD Not on meds, A1C 10/10 6.1% Insulin sliding scale #Hyperlipidemia On statin #GERD On Protonix #Depression On Zoloft #Asthma Stable Continue home inhalers DVT prophylaxis Eliquis Disposition Med/tele Full code, per prior hospitalist " if there is chance of recovery" Disposition pending Admission and Anticipated Discharge Date Admission Date: October 09, 2023 Results & Data Results & Data Vital Signs (Past 12 Hours) Vital Signs Temp Pulse Pulse Resp BP Pulse Ox O2 Del Method 10/20/23 16:47 67 10/20/23 15:37 36.1 C L 70 18 99/54 L 95 Room Air 10/20/23 11:23 36.1 C L 62 18 121/63 92 Room Air 10/20/23 07:40 62 10/20/23 07:37 36.6 C 61 16 134/70 94 Room Air
[2023-10-21 10:25] LABS: BUN Creatinine Ratio 24.6 (10-20); Calcium 8.7 mg/dl (8.6-10.3); Est GFR (African American) 39.5 ml/min; Est GFR (Non-African American) 34.1 ml/min; Potassium 3.8 mmol/L (3.5-5.1)
[2023-10-21 17:48] LABS: Basophils # (auto) 0.06 K/uL (0.00-0.20); Basophils % (auto) 0.8 %; Eosinophils # (auto) 0.45 K/uL (0.00-0.50); Eosinophils % (auto) 5.8 %; Hematocrit (blood only) 31.2 % (37.0-47.0); Hemoglobin 9.6 g/dl (12.0-16.0); Immature Granulocytes # (auto) 0.03 K/uL (0.01-0.20); Immature Granulocytes % (auto) 0.4 %; Lymphocytes # (auto) 0.84 K/uL (1.20-3.40); Lymphocytes % (auto) 10.9 %; Mean Corpuscular Hemoglobin 30.5 pg (25.0-34.0); Mean Corpuscular Hgb Conc 30.8 g/dL (32.0-36.0); Mean Platelet Volume 10.3 fL (9.4-12.4); Monocytes # (auto) 0.73 K/uL (0.11-0.59); Monocytes % (auto) 9.5 %; Neutrophils # (auto) 5.61 K/uL (1.40-6.50); Neutrophils % (auto) 72.6 %; Platelet Count 227 K/uL (130-400); RDW Coefficient of Variation 17.6 % (11.5-14.5); RDW Standard Deviation 63.2 fL (36.4-46.3); Red Blood Count 3.15 M/uL (4.20-5.40); White Blood Count 7.72 K/ul (4.8-10.8)
--- NOTE | 2023-10-21 17:58 | Hospitalist Progress Note ---
Date of Service October 21, 2023 Assessment & Plan (1) Generalized weakness: Plan: per previous hospitalist notes with addendum: Ms. Barakat is an 83-year-old female with past medically history significant for type 2 diabetes, diabetic retinopathy, CKD stage III, hypercholesterolemia, obstructive sleep apnea, moderate persistent asthma, paroxysmal atrial fibrillation, s/p watchman's device, history of mitral valve clip implantation, sick sinus syndrome s/p pacemaker, pulmonary hypertension, peripheral vascular disease, chronic diastolic CHF, angiodysplasia of colon, aneurysm of left carotid artery, severe tricuspid regurgitation, CAD , GERD, Mnire's disease, iron deficiency anemia, depression, history of endometrial cancer , TIA presented 10/09 with weakness and diarrhea. Patient on admission noted to have hgb 10, wbc 11.34, mild hyponatremia, TSH 10 iso recent illness/normal T4, baseline trop elevation 26.5, and mild LFT elevations consistent with prior. Renal function appears at baseline per trends since 2022. Per admitting hospitalist: "She was in the hospital in early August of this year with weakness and at the time she also found to have hemoglobin of 6.5 requiring 2 units of PRBCs. And also was treated for sinusitis with oral doxycycline. Anemia workup was done with peripheral smear which showed occasional teardrop cells thought to be related to chronic disease but myelodysplastic syndrome has not been ruled out and further hematology evaluation was recommended. She also received 5-day course of IV Venofer. Seen by GI and recommended conservative management at that time. She also seen by nephrology for TIFFANY on chronic disease. Symptoms improved with transfusion. Her sotalol dose was reduced to 40 mg daily due to renal insufficiency. Followed up with cardiology in first week of September and seems she underwent follow-up BRENDAN for a Watchman procedure in August and was noted large thrombus on device. At that point her aspirin was discontinued she was started Eliquis 2.5 mg twice daily. There is a plan to repeat echo to be completed near future. And also plan for endoscopy and colonoscopy in near future. After last admission in August patient was in rehab. As per son after coming from home she is been gradually getting weak. She ambulates with a rollator walker. Lately having diarrhea. Not able to eat much. Poor appetite. Recently she fell from the commode but did not totally fall down. Yesterday in the parking lot of [employer] she almost fell down. Because of diarrhea and weakness son brought her back to the hospital today." Patient endorses mild subjective improvement. CT AB P yesterday revealed acute diverticulitis Initially started on cipro/flagyl, but prolonged QTc and SVT noted overnight. Transitioned to ertapenem. After review of allergies, determined with pharmacy t hat CTX/flagyl will be acceptable as patient has tolerated CTX previously, despite documented allergies of keflex. Noted to have bouts of SVT while ambulating. Discontinued off of sotalol recently, no other rate control in place. Place on metoprolol tartrate on 10/12 to add rate control given bouts of tachycardia. Patient tolerating low fiber diet without issue and pain free. Remaining concern is weakness--which proved to result in unwitnessed fall over night on 10/13. Patient without LOC/dizziness/lightheadedness, just felt "knees" get weak. Family and patient express notable concern for falls and progress decline and wish to pursue rehab if possible. Referrals placed by case management. #Acute sigmoid diverticulitis #Acute Diarrhea #Enteroaggreative E Coli #C. Diff gene positive Back positive for c diff gene and EAEC CT abdomen pelvis: 1. Acute sigmoid diverticulitis. Inflamed sigmoid diverticulum with mild inflammation. No free air. No abscess. 2. Mild interstitial pulmonary edema. Subpleural groundglass opacities within the lower lungs could reflect a superimposed infectious process or alveolar pulmonary edema. 3. No bowel obstruction. Normal appendix. Discussed with GI service DC for fidaxomicin as patient did not have any positive C. difficile toxin based on review of lab tests Continue ceftriaxone plus Flagyl Patient has completed course of IV antibiotics including ceftriaxone, Flagyl, aztreonam Diarrhea improving Episodes of perioral numbness, tongue swelling, slurred speech Possible angioedema Neurology service consulted, symptoms felt to be secondary to angioedema as opposed to TIA symptoms Zyrtec daily started Ceftriaxone changed to aztreonam 10/21 Resolved #CKD stage IV GFR consistently in ~mid 29s since 11/2022 Creatinine was around 1.7-1.8 last admission Torsemide resumed Creatinine actually improved, now 1.2 #Chronic Heart failure with preserved ejection fraction Holding torsemide Monitor for volume overload, resume diuretic as soon as possible Torsemide resumed monitor crea, now 1.2 #SVT #Paroxysmal atrial fibrillation s/p Watchman device #History of mitral valve clip implantation Echo in August showed large thrombus on Watchman device On Eliquis Following with cardiology Recently taken off of Sotalol in 08/2023 Cardiology consulted -Started metoprolol 12.5mg BID 10/21 HR stable #Sick sinus syndrome #S/p pacemaker Monitor on tele #Generalized weakness likely related to ongoing diarrhea, poor nutrition -PT/OT--plan for rehab #Hypothyroidism Continue home Synthroid TSH 10, normal T4 1.2 Notably elevated to 9 on prior admits Will increase to 150mcg qam given elevated trends and weakness, needs OP follow up #Chronic JALEEL Anemia Iron deficiency anemia Hgb down to 8.6 (baseline 7-8), likely hemoconcentrated from diarrhea/dehydration as all cell lines notably decreased Last admission she received 2 units of PRBCs and IV Venofer There is a plan for OP EGD and colonoscopy Patient follows with Dr. 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 sheer stress 2/[address] CBC stable #Abnormal liver enzymes Chronic mild elevation in AST, ALT No RUQ tenderness, no cholecystitis, symptoms resolved #Chronic Troponin elevation -Plateaued, stable elevation in 20s CTM #Diabetes Mellitus Type II, with CKD Not on meds, A1C 10/10 6.1% Insulin sliding scale #Hyperlipidemia On statin #GERD On Protonix #Depression On Zoloft #Asthma Stable Continue home inhalers DVT prophylaxis Eliquis Disposition Med/tele Full code Disposition Case management on board Trying to transition patient to acute rehab versus prison facility Admission and Anticipated Discharge Date Admission Date: October 09, 2023 Subjective Follow-up for acute diverticulitis, etc. Seen resting in bed, comfortable, not in distress In good spirits States stools are getting more formed No abdominal pain, nausea, fevers or chills No other new symptoms Review of Systems Review of Systems: all noted and negative except for above Physical Exam Physical Exam: General- oriented x 3, not in distress, speaks in sentences with no effort or accessory muscle use Eyes- anicteric Neck- no JVD Lungs- clear breath sounds bilaterally, no wheezing, no crackle Heart- normal rate, regular rhythm; no murmurs Abdomen- normal bowel sounds, nondistended, soft, no tenderness Extremities- no pretibial edema, no calf tenderness Neuro- alert, oriented x 3; no gross focal neurologic deficits Skin- warm & dry Results & Data Results & Data Vital Signs (Past 12 Hours) Vital Signs Temp Pulse Pulse Resp BP Pulse Ox O2 Del Method 10/21/23 16:03 36.6 C 60 18 127/68 95 Room Air 10/21/23 15:00 73 10/21/23 10:50 36.4 C L 62 18 137/79 97 Room Air 10/21/23 07:19 36.5 C 68 16 116/66 95 Room Air 10/21/23 07:09 61 all noted and reviewed including below
[2023-10-22 06:43] LABS: Creatinine Clr Calc Pharmacy 31.1 ml/min; Est GFR (African American) 41.2 ml/min; Est GFR (Non-African American) 35.6 ml/min
--- NOTE | 2023-10-22 15:34 | Hospitalist Progress Note ---
Date of Service October 22, 2023 Assessment & Plan (1) Generalized weakness: Plan: Ms. Barakat is an 83-year-old female with past medically history significant for type 2 diabetes, diabetic retinopathy, CKD stage III, hypercholesterolemia, obstructive sleep apnea, moderate persistent asthma, paroxysmal atrial fibrillation, s/p watchman's device, history of mitral valve clip implantation, sick sinus syndrome s/p pacemaker, pulmonary hypertension, peripheral vascular disease, chronic diastolic CHF, angiodysplasia of colon, aneurysm of left carotid artery, severe tricuspid regurgitation, CAD , GERD, Mnire's disease, iron deficiency anemia, depression, history of endometrial cancer , TIA presented on 10/09 with weakness and diarrhea. On admission; hgb 10, wbc 11.34, mild hyponatremia, TSH 10 iso recent illness/normal T4, baseline trop elevation 26.5, and mild LFT elevations consistent with prior. #Acute sigmoid diverticulitis #Acute Diarrhea #Enteroaggreative E Coli #C. Diff gene positive Patient presented with weakness and diarrhea. CT abdomen pelvis consistent with acute sigmoid diverticulitis Patient completed antibiotic course with Cipro/Flagyl initially; transition over to ertapenem; then to ceftriaxone/Flagyl On 10/09; patient also had C. difficile gene positive, toxin negative. Also found to have interval aggregate of E. coli as well Patient appears stable from GI perspective. Monitor for diarrhea. Episodes of perioral numbness, tongue swelling, slurred speech Possible angioedema Neurology service consulted, symptoms felt to be secondary to mild angioedema as opposed to TIA symptoms Symptoms have resolved spontaneously. #CKD stage IV GFR consistently in ~mid 29s since 11/2022 Creatinine was around 1.7-1.8 last admission Torsemide resumed Creatinine actually improved, now 1.2 #Chronic Heart failure with preserved ejection fraction Continue on torsemide Monitor for volume overload, resume diuretic as soon as possible #SVT #Paroxysmal atrial fibrillation s/p Watchman device #History of mitral valve clip implantation Echo in August showed large thrombus on Watchman device On Eliquis Following with cardiology Recently taken off of Sotalol in 08/2023 Cardiology consulted -Started metoprolol 12.5mg BID Continue telemonitoring #Sick sinus syndrome #S/p pacemaker Monitor on tele #Generalized weakness likely related to ongoing diarrhea, poor nutrition -PT/OT--plan for rehab #Hypothyroidism Continue home Synthroid TSH 10, normal T4 1.2 Notably elevated to 9 on prior admits Thyroxine increased to 150mcg q am given elevated trends and weakness, needs OP follow up #Chronic JALEEL Anemia Iron deficiency anemia Last admission she received 2 units of PRBCs and IV Venofer There is a plan for OP EGD and colonoscopy Patient follows with Dr. 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 sheer stress 2/[address] Hemoglobin stable #Abnormal liver enzymes Chronic mild elevation in AST, ALT No RUQ tenderness, no cholecystitis, symptoms resolved #Chronic Troponin elevation -Plateaued, stable elevation in 20s CTM #Diabetes Mellitus Type II, with CKD Not on meds, A1C 10/10 6.1% Insulin sliding scale #Hyperlipidemia On statin #GERD On Protonix #Depression On Zoloft #Asthma Stable Continue home inhalers DVT prophylaxis Eliquis Disposition Med/tele Full code Disposition Case management on board Discussed with patient's son over the phone and patient at bedside about discharge option. They are considering getting patient discharged back home with home health instead of awaiting rehab. Time spent evaluating patient, direct bedside care, chart review, placing orders, interpretation of diagnostic studies, discussion with consultants, patient, and family members, as well as other required patient management activities is 50 minutes Please note the above document was generated using voice recognition software. It may contain grammatical, syntax or spelling errors. Any formal questions or concerns about the content, text or information contained within the body of this dictation should be directly addressed to the provider for clarification Admission and Anticipated Discharge Date Admission Date: October 09, 2023 Subjective Patient seen and examined at bedside. She reports multiple episode of loose bowel movements. No complaint of abdominal pain, chest pain or shortness of breath. Review of Systems Review of Systems: All systems reviewed & are unremarkable except as noted in Subjective Physical Exam Physical Exam: Constitutional: WD/WN, vitals as above, NAD, sitting up in bed, pleasant, conversing easily Respiratory: Bilateral vesicular breath sound Cardiovascular: RRR, no murmur, no edema Vessels: no JVD or carotid bruit Chest: normal inspection of chest Abdomen: normal bowel sounds, soft, nontender, no hepatosplenomegaly Musculoskeletal: no cyanosis or clubbing, extremities motor strength 5/5 Skin: no rashes, warm and dry normal turgor Neurologic: PERRL, EOMI, accommodation nl, no face palsy, no dysarthria CN's II- XI intact bilaterally and moves all extremities Psychiatric: A+Ox3, euthymic affect Results & Data Results & Data Vital Signs (Past 12 Hours) Vital Signs Temp Pulse Pulse Resp BP Pulse Ox O2 Del Method 10/22/23 11:07 36.5 C 64 20 115/65 96 Room Air 10/22/23 07:42 61 10/22/23 07:37 36.7 C 69 18 136/66 94 Room Air
--- NOTE | 2023-10-22 17:31 | Discharge Summary ---
Date of Service October 22, 2023 Admission HPI Per Admitting Provider 83-year-old female with past medically history significant for type 2 diabetes, diabetic retinopathy, CKD stage III, hypercholesterolemia, obstructive sleep apnea, moderate persistent asthma, paroxysmal atrial fibrillation, s/p watchman's device, history of mitral valve clip implantation, sick sinus syndrome s/p pacemaker, pulmonary hypertension, peripheral vascular disease, chronic diastolic CHF, angiodysplasia of colon, aneurysm of left carotid artery, severe tricuspid regurgitation, CAD , GERD, Mnire's disease, iron deficiency anemia, depression, history of endometrial cancer , TIA presents with weakness. She was in the hospital in early August of this year with weakness and at the time she also found to have hemoglobin of 6.5 requiring 2 units of PRBCs. And also was treated for sinusitis with oral doxycycline. Anemia workup was done with peripheral smear which showed occasional teardrop cells thought to be related to chronic disease but myelodysplastic syndrome has not been ruled out and further hematology evaluation was recommended. She also received 5-day course of IV Venofer. Seen by GI and recommended conservative management at that time. She also seen by nephrology for TIFFANY on chronic disease. Symptoms improved with transfusion. Her sotalol dose was reduced to 40 mg daily due to renal insufficiency. Followed up with cardiology in first week of September and seems she underwent follow-up BRENDAN for a Watchman procedure in August and was noted large thrombus on device. At that point her aspirin was discontinued she was started Eliquis 2.5 mg twice daily. There is a plan to repeat echo to be completed near future. And also plan for endoscopy and colonoscopy in near future. After last admission in August patient was in rehab. As per son after coming from home she is been gradually getting weak. She ambulates with a rollator walker. Lately having diarrhea. Not able to eat much. Poor appetite. Recently she fell from the commode but did not totally fall down. Yesterday in the parking lot of [employer] she almost fell down. Because of diarrhea and weakness son brought her back to the hospital today. Denies any headache currently.. No neck pain. Chronic back pain. States she has some vision problem yesterday but today the vision is okay. Chronic earaches. Chronic runny nose. No sore throat. Currently no chest pain. States with exertion she gets some short of breath. She felt nauseous today. No vomiting. Mild abdominal discomfort. Denies any blood in the stools. Micturating okay. Currently hemodynamics are okay. Afebrile Past medical history. As mentioned above Past surgical history. Colonoscopy. Cardiac cath. Cystoscopy. EGD. Laparoscopic total hysterectomy. Laparoscopic cholecystectomy. Ligation of oviducts. Neck spine fusion surgery. Lumbar laminectomy. Percutaneous closure of left atrial appendage. Tonsillectomy. Left repair of ruptured rotator cuff. Sinus surgery. Bilateral transcatheter mitral valve repair. Social history. . Quit smoking 1978. Smoked 1.25 packs a day for 18 years. No alcohol use. No drug use. Family history. Brother had a brain and lung cancer. Father had diabetes. Mot her had glaucoma. Neurological disorder. Maternal grandmother had stomach cancer. . Admission Exam Per Admitting Provider General- Not in distress Head- atraumatic Eyes- PERRL. ENT- oropharynx clear Neck- supple, no JVD. Lungs- clear to auscultation, no wheezing or crackles. Heart- regular rhythm; no murmur, no gallop. Abdomen- normal bowel sounds, soft, nontender, no distension. Extremities- mild pretibial edema, no erythema seen. Neuro- alert, oriented ; PERRL, no facial palsy; no dysarthria; moves extre mities. Skin- warm & dry Principal Diagnosis #Acute sigmoid diverticulitis #Acute Diarrhea #Enteroaggreative E Coli Discharge Exam Constitutional: WD/WN, vitals as above, NAD, sitting up in bed, pleasant, conversing easily Respiratory: Bilateral vesicular breath sound Cardiovascular: RRR, no murmur, no edema Vessels: no JVD or carotid bruit Chest: normal inspection of chest Abdomen: normal bowel sounds, soft, nontender, no hepatosplenomegaly Musculoskeletal: no cyanosis or clubbing, extremities motor strength 5/5 Skin: no rashes, warm and dry normal turgor Neurologic: PERRL, EOMI, accommodation nl, no face palsy, no dysarthria CN's II- XI intact bilaterally and moves all extremities Psychiatric: A+Ox3, euthymic affect Discharge Data Allergies Allergy/AdvReac Type Severity Reaction Status Date / Time Sulfa (Sulfonamide Allergy Severe Severe Verified 10/09/23 21:19 Antibiotics) rxn: rash and hives celecoxib Allergy Intermediate Rash/Hives/ Verified 10/09/23 21:19 Itching. cephalexin Allergy Intermediate Rash/Hives/ Verified 10/09/23 21:19 Itching. furosemide Allergy Intermediate Rash/Hives/ Verified 10/09/23 21:19 Itching. gabapentin Allergy Intermediate Rash/Hives/ Verified 10/09/23 21:19 Itching. pregabalin Allergy Intermediate Rash/Hives/ Verified 10/09/23 21:19 Itching. meclizine Allergy Unknown Unknown Verified 10/09/23 21:19 methylprednisolone Allergy Unknown Rash/Hives/ Verified 10/09/23 21:19 Itching. Penicillins Allergy Unknown Unknown. Verified 10/09/23 21:19 prednisone Allergy Unknown Rash/Hives/ Verified 10/09/23 21:19 Itching. vancomycin Allergy Unknown Jodi Verified 10/09/23 21:19 syn. . nickel Allergy Unknown Verified 10/09/23 21:19 dexamethasone AdvReac Intermediate Steroid Verified 10/09/23 21:19 psychosis. Consultations 10/09/23 20:56 ED Decision to Admit Stat 10/12/23 09:38 Consult Cardiology Routine 10/15/23 17:09 Consult Gastroenterology Routine 10/16/23 09:52 Consult Neurology Routine Ordered Studies 10/09/23 17:17 CT head/brain wo con Stat 10/10/23 10:28 CT abd pelvis wo con Routine 10/14/23 09:44 CT head/brain wo con Stat Hospital Course (1) Generalized weakness: Ms. Barakat is an 83-year-old female with past medically history significant for type 2 diabetes, diabetic retinopathy, CKD stage III, hypercholesterolemia, obstructive sleep apnea, moderate persistent asthma, paroxysmal atrial fibrillation, s/p watchman's device, history of mitral valve clip implantation, sick sinus syndrome s/p pacemaker, pulmonary hypertension, peripheral vascular disease, chronic diastolic CHF, angiodysplasia of colon, aneurysm of left carotid artery, severe tricuspid regurgitation, CAD , GERD, Mnire's disease, iron deficiency anemia, depression, history of endometrial cancer , TIA presented on 10/09 with weakness and diarrhea. On admission; hgb 10, wbc 11.34, mild hyponatremia, TSH 10 iso recent illness/normal T4, baseline trop elevation 26.5, and mild LFT elevations consistent with prior. Patient underwent CT abdomen and pelvis; found to have acute sigmoid diverticulitis. Patient was started on IV antibiotics with Cipro and Flagyl. Patient was also noted to have C. difficile gene positive all along with EA E. coli. GI was consulted for comanagement; they did not recommend treatment for C. difficile given that gene positivetoxin negative. Patient also had episode of SVT; cardiology was consultedpatient was started on metoprolol twice daily. PT OT evaluation was done; patient was recommended to go to rehab. However, patient was denied acute rehab. While awaiting for subacute rehab; patient reported that she would like to go home with home health. Discussed with patient's son over the phone. Answer questions/queries. Please note the above document was generated using voice recognition software. It may contain grammatical, syntax or spelling errors. Any formal questions or concerns about the content, text or information contained within the body of this dictation should be directly addressed to the provider for clarification Total Time Total Time Spent Total Time Spent (In Minutes): 45 Total Time Includes: Examination of the Patient, Discharge Planning, Medication Reconciliation, Communication With Other Providers and Other Discharge Plan Discharge Items Patient Disposition: Home - Self-Care Reason For Visit: WEAKNESS,DIARRHEA,ELEVATED TROP Discharge Diagnosis: #Acute sigmoid diverticulitis #Acute Diarrhea #Enteroaggreative E Coli #C. Diff gene positive Activity: Resume your previous activity Non-emergency contact: Primary Care Provider Call non-emergency contact if: you have any medication questions and your symptoms worsen Follow-up/Referrals: Florentin Calvo DO [Primary Care Provider] - (Date & Time 10/24/2023 1:40 PM Provider Florentin Calvo DO Department Family Practice [address], [place] ) Diet: Regular Addtl Attending Provider Instructions: You were admitted to the hospital due to acute diverticulitis. You are treated with antibiotics during the hospitalization. During the hospitalization, you are found to have elevated heart rate for which cardiology was consulted. They recommend you to be started on metoprolol 25 mg twice daily. Your TSH was found to be slightly elevated for which your dose of levothyroxine has been increased to 150 mcg. An appointment has been set up with your primary care doctor for follow-up. Pending Studies at Discharge: No Stand-Alone Forms: [employer], Smoking Cessation Medications and DC Order Prescriptions: New cetirizine 10 mg Tablet 10 mg PO QAM Qty: 30 0RF levothyroxine [Synthroid] 150 mcg Tablet 150 mcg PO DAILYBB Qty: 30 0RF metoprolol succinate 25 mg Tablet Extended Release 24 Hr 25 mg PO BID Qty: 60 0RF Continued montelukast 10 mg tablet 10 mg PO PM ferrous sulfate 325 mg (65 mg iron) Tablet 325 mg PO QAM ipratropium bromide 21 mcg (0.03 %) spray,non-aerosol 2 spray INTRANASAL DAILY PRN (Reason: rhinorrhea ) pantoprazole 40 mg tablet,delayed release (DR/EC) 40 mg PO BID Qty: 60 0RF atorvastatin 20 mg tablet 20 mg PO QAM cholecalciferol (vitamin D3) [Vitamin D3] 50 mcg (2,000 unit) Capsule 100 mcg PO QAM sertraline 100 mg Tablet 150 mg PO QAM levalbuterol tartrate [Xopenex HFA] 45 mcg/actuation Hfa Aerosol Inhaler 1 puff INHALATION Q4 PRN (Reason: Shortness Of Breath) cyanocobalamin (vitamin B-12) [Vitamin B-12] 100 mcg Tablet 100 mcg PO QAM torsemide 10 mg tablet 10 mg PO QAM Stiolto Respimat 2.5-2.5 mcg/actuation mist 2 puff INHALATION QAM folic acid 1 mg Tablet 1 mg PO QAM lorazepam 1 mg tablet 1 mg PO HS PRN (Reason: sleep/anxiety ) allopurinol 300 mg tablet 300 mg PO HS levothyroxine 125 mcg capsule 125 mcg PO QAM Eliquis 2.5 mg tablet 2.5 mg PO AMHS Discharge Orders: Discharge Order (Routine); Ordered 10/22/23 Ordered By: Cody Gandhi/Other Patient Handouts: Managing Type 2 Diabetes Admission Data Admit Date/Time: 10/09/23 22:08 Attending Provider: Cody Medellin Admit Provider: Toni Parker Primary Care Provider: Florentin Calvo Other Providers: Toni Parker; Hossein Snowden; [facility]; [facility]; Martin Metz; Guevara James; Susannah Oseguera; Shweta Horvath; Sheela Crowe; Nena Richardson; Matthew,Silas; Steve Barreto; Jana Vieira; Maine Stone; Dale Johns; Janine Cunningham; Priscilla Jamil; Lacy Ronquillo; Harriett Gomez; Altagracia Maxwell; Bobby Newton; Jake Olmos; Emelina Lugo; Rebecca Wright Jr; Carmenza Colon; Ventura Mantilla; Carmenza Ferguson; Pritesh Cueto; Eric Cooley; Krishan Bynum; Nilay Puckett; Mia Cadena; Thierry Toro; Kwame Patel; Jodee Smith; Florentin Carr; Aminata Lee; Kacie Singh; Nilay Ray
== END 2023-10-22 17:59 | disposition home or self-care (01) | DRG 372 ==
LOC: ED 17:02 → EDINP 22:08 → SUATTDRO 22:08 → 2W 10-10 00:57

== ENCOUNTER 2024-03-21 00:39 | Inpatient (IN) ==
--- OUTSIDE RECORDS SUMMARY | 2024-03-21 00:56 | External Medical Summary | Summary of Care ---
Author Name Unknown Organization [facility] Address [address] [place] [address] Phone [phone] Care Team Providers Care Strategic Planning Analyst Name Role Phone Florentin Calvo DO Primary Care Provider [phone] Encounter Details Date Type Department Care Team (Late st Contact Info) Description 03/16/2024 Population Health External Data Unspecified Department Allergies Active Allergy Reactions Criticality Noted Date [...] as of this encounter (statuses as of 03/19/2024) Medications Medication Sig Dispensed Refills Start Date End Date Status Mizhe.comTouch Verio w/Device KitIndications:Type 2 diabetes mellitus with hemoglobin A1c goal of less than 7.0% ([facility]) Use up to 1 times a day. E11.9 1 Kit 06/19/2021 Active Vitamin D3 50 MCG (1999 UT) Oral CapsuleIndications: Vitamin D deficiency Take 2 Capsules by mouth in the morning. 60 Capsule 5 04/04/2022 Active Levalbuterol Tartrate 45 MCG/ACT Inhalation Aerosol (Xopenex HFA)Indications:Ast hma with severity to be determined Inhale by mouth 1 Puff every 4 hours as needed for Wheezing. 15 g 12 06/13/2022 Active [email or web address].comTouch RaisedDigital In Vitro Strip (Glucose Blood) Test blood sugars up to 2 times a day E11.9 200 Strip 3 12/20/2022 Active Atorvastatin Calcium 20 MG Oral Tablet (Lipitor)Indication s:PVD (peripheral vascular disease) ([facility]),Type 2 diabetes mellitus with stage 3a chronic kidney disease and hypertension ([facility]) TAKE ONE TABLET BY MOUTH EVERY DAY DIRECTED 100 Tablet 3 03/31/2023 Active Ipratropium [place] 0.03 % Nasal Solution (Atrovent)Indicatio ns:Chronic rhinitis Administer 2 Sprays into nostril in the morning and 2 Sprays before bedtime. 90 mL 3 04/01/2023 Active Allopurinol 300 MG Oral Tablet (Zyloprim) Take 1 Tablet by mouth at bedtime. 90 Tablet 3 05/16/2023 Active Tiotropium [place]-Olodaterol 2.5-2.5 MCG/ACT Inhalation Aerosol Solution (Stiolto Respimat) Inhale 2 Puffs by mouth in the morning. 12 g 3 05/23/2023 Active Folic Acid 1 MG Oral TabletIndications:C hronic atrial fibrillation (HCC) TAKE ONE TABLET BY MOUTH EVERY MORNING 100 Tablet 1 09/02/2023 09/01/2024 Active Montelukast Sodium 10 MG Oral Tablet (Singulair)Indicati ons:Moderate persistent asthma without complication TAKE ONE TABLET BY MOUTH AT BEDTIME 100 Tablet 3 09/02/2023 09/01/2024 Active Sertraline HCl 100 MG Oral Tablet (Zoloft) Take one and one-half Tablets by mouth in the morning. 150 Tablet 3 10/11/2023 Active Cetirizine HCl 10 MG Oral Tablet (ZyrTEC) Take 1 Tablet by mouth in the morning. 10/22/2023 Active Metoprolol Succinate ER 25 MG Oral Tablet Extended Release 24 Hour (toPROL XL)Indications:Paro xysmal atrial fibrillation (HCC) Take 1 Tablet by mouth in the morning and 1 Tablet before bedtime. 200 Tablet 3 10/24/2023 Active Melatonin 3 MG Oral Capsule Take 1 Capsule by mouth at bedtime. Active Acetaminophen 500 MG Oral Tablet (Tylenol) Take 2 Tablets by mouth every 6 hours as needed. Max 6 tablets per day (3000 mg) Active Pantoprazole Sodium 40 MG Oral Tablet Delayed Release (Protonix) Take 1 Tablet by mouth in the morning and 1 Tablet by mouth in the evening. 200 Tablet 1 01/22/2024 Active Vitamin B-12 100 MCG Oral Tablet (vitamin B-12)Indications:B1 2 deficiency Take 1 Tablet by mouth in the morning. 90 Tablet 3 02/05/2024 Active Torsemide 10 MG Oral Tablet (Demadex)Indication s:Chronic diastolic CHF (congestive heart failure) (HCC) Take 2 Tablets by mouth in the morning. 200 Tablet 3 02/24/2024 Active Apixaban 2.5 MG Oral Tablet (Eliquis)Indication s:Paroxysmal atrial fibrillation (HCC) Take 1 Tablet by mouth in the morning and 1 Tablet before bedtime. 60 Tablet 2 03/09/2024 Active Polyethylene Glycol 3350 17 GM/SCOOP Oral Powder (MiraLax) Take 17 g by mouth in the morning and 17 g before bedtime. Dissolve one heaping tablespoon in 8 ounces of water or juice.. 03/12/2024 Active fentaNYL 12 MCG/HR Transdermal Patch 72 HourIndications:Com pression fracture of T12 vertebra, initial encounter ([facility]) Place 1 Patch over 72 hours topically on the skin every 3 days. For pain control. 10 Patch 03/16/2024 Active oxyCODONE HCl 5 MG Oral Tablet (Oxy IR)Indications:Clos ed fracture of multiple ribs of left side with routine healing, subsequent encounter Take 0.5 Tablets by mouth every 6 hours as needed for Pain, Breakthrough. 30 Tablet 03/17/2024 Active documented as of this encounter (statuses as of 03/19/2024) Active Problems Problem Noted Date Diagnosed Date Compression fracture of T12 vertebra 03/12/2024 Last Assessment & Plan: Increased oxy from 2.5mg to 5mg [id number] prn Ortho spine ref, ?kyphoplasty Constipation 03/12/2024 Last Assessment & Plan: Last bm 4 days ago Moderate amount retained stool on ct a/p 03/05 Advised miralax bid along with dulcolax tabs Chronic obstructive pulmonary disease 03/12/2024 Last Assessment & Plan: +emphysema per imaging, but PFTs normal >1 year ago +23 pack year smoking history Continue spiriva Type 2 diabetes mellitus with peripheral vascula r disease 11/17/2023 Last Assessment & Plan: "RED FLAG" Diabetic symptoms: Confusion and Vision Changes Goal HgbA1c <8 Diabetic Complications Vascular (examples: PVD, PAD, CAD, CVA) Neurologic (example: Peripheral Neuropathy) Renal (example: CKD, Proteinuria, Dialysis) Medication Regimen Lifestyle Modification / Monitoring ONLY DM Secondary Prevention Moderate-High Intensity Statin Additional Comments Last A1c 6.01 aug 2023 Sigmoid diverticulosis 11/17/2023 Last Assessment & Plan: Recent admission for diverticulitis Treated with cipro and flagyl Continues with intermittent diarrhea, suggested trying OTC fiber supplement Monitor for increased diarrhea, n/v, abd pain, fever/chills Nocturnal hypoxemia 11/05/2023 Presence of Watchman left atrial appendage closu re device 07/31/2023 Overview: Per BRENDAN 11/03/23 There has been a significant reduction in the size of the thrombus on the Watchman, now measuring 0.9 cm (see image below). There is a trivial paradevice leak Last Assessment & Plan: Continues on eliquis for now Repeat BRENDAN and cardiology f/u scheduled S/P mitral valve clip implantation 03/06/2023 Atherosclerosis of 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 02/13/2023 [...] of insulin 07/26/2022 Last Assessment & Plan: "RED FLAG" Diabetic symptoms: Excessive Thirst, Confusion, and Vision Changes Goal HgbA1c <8 Diabetic Complications Vascular (examples: PVD, PAD, CAD, CVA) Renal (example: CKD, Proteinuria, Dialysis) Medication Regimen Lifestyle Modification / Monitoring ONLY DM Secondary Prevention Aspirin Yearly Diabetic Eye Exam Additional Comments Last A1c at goal Chronic diastolic CHF (congestive heart failure) 07/25/2022 Last Assessment & Plan: "RED FLAG" HF Symptoms: Leg Swelling (Examples: "I can't wear certain socks or shoes", "My pants feel tight") Increased dyspnea on exertion (Example: "I can't walk to the kitchen or up the stairs") Medication Regimen: Beta Graciela Therapy: Metoprolol Tartrate YE Inhibitor/ARB Therapy: No YE/ARB/ARNI secondary to: hypotension Diuretic therapy: Torsemide SGLT2 Inhibitor: No Current SGLT2 (Describe in the Comments) Remote Patient Monitoring Vendor: Refuses any RPM Device(s): Traditional Scale Self - Management Plan Double dose of Torsemide for 2 days Exacerbation Plan Contact the HF Provider for IV Lasix guidance Additional Comments: Stable today PVD (peripheral vascular disease) 05/15/2022 Aneurysm of [...] hyperparathyroidism, renal 12/17/2018 Acquired renal cyst 06/12/2016 Angiodysplasia of colon with hemorrhage 04/24/20 16 Tremor 09/21/2015 Paroxysmal atrial fibrillation 09/09/2014 Last Assessment & Plan: Rate controlled Not on anticoag due to bleeding history Recently had watchman device placed Obstructive sleep apnea of adult 09/09/2014 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 Meniere's disease 10/18/2013 DM type 2, goal HbA1c < 8% 03/24/2013 Overview: ICD-10 update of inactive term [...] Prevention o Moderate-High Intensity Statin o Aspirin Spinal stenosis of lumbar re gion without neurogenic claudication 03/24/2013 Hypothyroidism 03/24/2013 Last Assessment & Plan: Continue Synthroid Displacement of cervical int ervertebral disc without myelopathy 03/24/2013 documented as of this encounter (statuses as of 03/19/2024) Resolved Problems Problem Noted Date Diagnosed Date Resolved Date Paroxysmal SVT (supraventricular tachycardia) 10/24/19 24 10/24/2023 Hypertensive chronic kidney disease with stage 1 [...] atrial fibrillation 12/17/2018 06/12/2022 Hyperparathyroidism 05/20/2018 09/08/19 Type 2 DM with CKD stage 3 and hypertension 12/24/2017 01/04/2021 Overview: Per CKD protocol Elevated PTHrP level 08/20/2017 017 Controlled substance agreement signed 11/26/2016 09/29/2023 Iron deficiency anemia 04/24/201611/11 HTN, goal below 140/90 02/05/201604/18 Overview: Per HTN Protocol Atrial flutter 08/31/2014 02/24/2019 Kidney disease, chronic, sta ge III (GFR 30-59 ml/min) 10/18/2013 01/15/2018 Overview: Per CKD protocol #1 HTN, goal below 140/80 03/24/201302/07 Overview: Per HTN Protocol Vertigo 03/24/2013 11/12/2023 Asthma, moderate persistent 03/24/2013 09/21/2019 Depression 03/24/2013 05/31/2020 documented as of this encounter (statuses as of 03/19/2024) Immunizations Name Administration Dates Next Due COVID-19 mRNA, LNP-s, No Pre serve, 2-Dose Series (Moderna) 06/23/2021,10/25/2020,09/28/2020 COVID-19, LNP-s, No Preserve , Larry-sucrose, Ages 12+ (Pfizer) 04/09/2022 COVID-19, MRNA-LNP, 23-24, P F, 30 MCG/0.3 mL, 12 YRS AND ABOVE, IM ([place] Iron Oxides (PIROX)-Comirnaty) 06/09/2023 Covid-19, Mrna, Lnp-s, Pf, B ivalent, [...] 05/06/2019 TDAP (age 10 and older)(Boostrix) 12/29/2018 TDAP, Age 7 and older, IM (Adacel) 07/15/2009 Varicella Zoster Vaccine (Adult) 03/25/2007 Zoster Vaccine Recombinant (Shingrix) 07/16/2019 ,05/16/2019 documented as of this encounter Social History Tobacco Use Types Packs/Day Years Used Date Smoking Tobacco: Former Cigarettes 1.3 18 0 12/29/1960 - 12/29/1978 Passive Smoke Exposure: Past Smokeless Tobacco: Never Alcohol Use Standard Drinks/Week Comments No 0 (1 standard drink = 0.6 oz pur e alcohol) PHQ-2 Answer Date Recorded PHQ Adult Total Score 0 09/29/2023 Hunger Vital Sign Answer Date Recorded Within the past 12 months, y ou worried that your food would run out before you got the money to buy more. Never true 09/29/19 24 Within the past 12 months, t he food you bought just didn't last and you didn't have money to get more. Never true 09/29/2023 Childcare Answer Date Recorded Do you feel overwhelmed with taking care of a child, family member or friend? No 09/29/2023 Does your family need help f inding childcare? (Household - for ages 0-17 years) Not on file 09/29/2023 Clothing Answer Date Recorded Have you been unable to get clothing when it was really needed? No 09/29/2023 Is your family able to get c lothes or diapers when needed? (Household - for ages 0-17 years) Not on file 09/29/2023 Personal Safety Answer Date Recorded Do you feel unsafe or have concerns for your saf ety? No 09/29/2023 Do you have concerns for you r family's safety? (Household - for ages 0-17 years) Not on file 09/29/2023 Utilities Answer Date Recorded Do you have trouble paying y our heating, water, or electric bill? No 09/29/2023 Is your family able to pay t he heat, water, or electric bill? (Household - for ages 0-17 years) Not on file 09/29/2023 Does your family have access to good internet? (Household - for ages 0-17 years) Not on file 09/29/2023 Employment Status Answer Date Recorded Are you unemployed or without regular income? No 09/29/2023 Does the household have a [facility] source of income? (Household - for ages 0-17 years) Not on file 09/29/2023 Social Connections Answer Date Recorded How often do you feel lonely or isolated from th ose around you? Never 09/29/2023 Financial Resource Strain Answer Date R ecorded Do you have any trouble payi ng for your medications, or do you think you might in the future? No 09/29/2023 Does your family have troubl e paying for medicine? (Household - for ages 0-17 years) Not on file 09/29/2023 Transportation Needs Answer Date Record ed READ ONLY Do you have troubl e getting a ride to medical visits or work? Never True 09/29/2023 Does your family have a hard time getting a ride to doctors visits? (Household - for ages 0-17 years) Not on file 09/29/2023 Has lack of transportation k ept you from medical appointments, meetings, work, or from getting things needed for daily living? Check all that apply. (Adult - for ages 18 years and over) Not on file 09/29/2023 Do you (or your family) have trouble finding or paying for a ride (transportation)? (Household - for ages 0-17 years) Not on file 09/29/2023 Housing Stability Answer Date Recorded Do you currently live in a s helter or have no steady place to sleep at night? No 09/29/2023 READ ONLY Do you think you a re at risk of becoming homeless? No 09/29/2023 Does your family worry about paying for your home or becoming homeless? (Household - for ages 0-17 years) Not on file 0 09/29/2023 Are you homeless or worried that you might be in the future? (Adult - for ages 18 years and over) Not on file Are you (or your family) vitor eless or worried that you might be in the future? (Household - for ages 0-17 years) Not on file Food Insecurity Answer Date Recorded Do you need food for this week? No 09/29/2023 Are you able to get enough f ood for your family? (Household - for ages 0-17 years) Not on file 09/29/2023 Does your family need food t his week? (Household - for ages 0-17 years) Not on file 09/29/2023 Do you always have enough fo od for your family? (Household - for ages 0-17 years) Not on file 09/29/2023 Sex and Gender Information Value Date Recorded [...] or do you have serious difficulty hearing? No-[place] can hear w/ hearing aid 03/07/2023 Are [...] Care Team (Late st Contact Info) Description 03/24/2024 10:00 AM EDT Scheduled Telephone [facility], [facility] [address] [place] [address] Coordinator, [facility] [address] [place] [address] 03/25/2024 8:30 AM EDT Office Visit Hematology/Oncolog y [facility] [address] [facility] [phone] Nereyda Metz CRNP [address] [place] [address] [place] [address] 03/30/2024 11:20 AM EDT Office Visit Family Practice [address] [place] [address] [address] [facility], [place] [address] Florentin Calvo, 293 [facility], [place] [address] 04/01/2024 11:00 AM EDT Home Visit [facility], [facility] [address] [place] [address] Michelle Hurt, RN [address] [place] [address] 04/05/2024 11:00 AM EDT Imaging Vascular Lab, [facility] [address] [facility] [address] [place] [address] 04/14/2024 10:50 AM EDT Office Visit Vascular Surgery, [facility] [address] [facility] [place] [address] Aj Sahni MD [address] [place] [address] 04/20/2024 3:40 PM EDT Office Visit Family Practice [address] [facility] [address] [facility] [place] [address] Florentin Calvo, DO [address] [place] [address] 05/21/2024 1:14 PM EDT Hospital Encounter OR [facility], Operating Room, [facility] - 4th Floor [address] [facility] [place] [address] Jana Vieira, DO [facility] [place] [address] 05/21/2024 1:14 PM EDT - 05/21/2024 1:59 PM EDT Surgery OR [facility], Operating Room, [facility] - 4th Floor [address] [facility] [place] [address] Jana Vieira, DO [address] [place] [address] COLONOSCOPY FLEXIBLE PROXIMAL DIAGNOSTIC 06/03/2024 2:15 PM EDT Office Visit Ophthalmology, [facility] [address] [facility] [place] [address] Wilbur Benavides, DO [address] [facility] [place] [address] 07/01/2024 2:30 PM EST Office Visit Gastroenterology, [facility] 132 [facility] [place] [address] Lacy Ronquillo CRNP [address] [place] [address] 08/09/2024 1:00 PM EST Nurse Only Ancillary [address] [facility] 293 [facility] [place] [address] College, Nurse Annual Wellness Visit [address] [facility] [address] [facility] [place] [address] Scheduled Procedures Name Priority Associated Diagnoses Date/Ti me COLONOSCOPY FLEXIBLE PROXIMA L DIAGNOSTIC Diarrhea, unspecified type History of diverticulitis 05/21/2024 1:14 PM EDT ESOPHAGOGASTRODUODENOSCOPY ( EGD), FLEXIBLE, TRANSORAL, DIAGNOSTIC Diarrhea, unspecified type History of diverticulitis 05/21/2024 1:14 PM EDT Health Maintenance Due Date Last Done Comments Alpha-1 Antitrypsin 1958 COVID-19 Vaccine ( season) 2023 06/09/2023, 09/10/2022, 04/09/2022, Additional history exists *SPIROMETRY ONCE FOR ASTHMA-ADULT 03/07/2024 *COPD SEVERITY VERIFIED BY PFT 03/15/2024 *CXR OR CT FOR COPD EVER 03/15/2024 Influenza Vaccine (FLU shot) (#1) 2024 05/13/2023, 05/15/2022, 05/22/2021, Additional history exists Diabetic Eye Exam 05/22/2024 05/22/2023, , 05/22/2023, Additional history exists HbA1c 06/08/2024 12/08/2023, 07/26, 02/21/2023, Additional history exists O2 ASSESSMENT COMPLETED IN PAST YEAR FOR COPD 07/31/2024 07/31/2023 CKD PHOS USE SMARTSET 57390 08/19/202407/26, 05/01/2022, 04/03/2022, Additional history exists Diabetic Foot Exam 09/15/2024 09/15/2023, 0 10/01/2022, 10/26/2021, Additional history exists GFR 09/15/2024 03/15/2024, 07/0 04/2024, 02/24/2024, Additional history exists Depression Monitoring 09/29/2024 09/29/2023 Albumin/Creatinine Ratio 12/08/2024 024, 02/21/2023, 05/01/2022, Additional history exists CKD HGB USE SMARTSET 16032 03/15/202503/15, 03/15/2024, 03/02/2024, Additional history exists TSH 03/15/2025 03/15/2024, 02/23, 12/08/2023, Additional history exists DXA Scan 05/07/2025 05/07/2021, 12/24, 04/12/2013, Additional history exists Colonoscopy 03/11/2026 03/11/2022, 02/22, 11/10/2020, Additional history exists DTaP,Tdap,and Td Vaccines (3 - Td or Tdap) 12/29/2028 12/29/2018, 07/15/2009 Pneumococcal Vaccine: 65+ Years Completed 09/21/2015, 05/25/2012, 07/25/2007 Zoster Vaccines Completed 07/16/2019, 04/26, 03/25/2007 HPV (Gardasil) Vaccine Aged Out No lo nger eligible based on patient's age to complete this topic Hepatitis B Vaccine Aged Out No longe r eligible based on patient's age to complete this topic MENINGOCOCCAL (MENACTRA/MENVEO) Aged Out No longer eligible based on patient's age to complete this topic documented as of this encounter Medical Devices Implanted Type Area Cracking Still Operator Device Identifier Shelf Expiration Date Model / Serial / Lot Cath Thermodilution 6fr - [id number] Implanted:Qty: 1 on 01/24/2023 by Wilbur Rivera MD at [facility] [employer] [employer] [id number] 10/15/2024 [id number] / / [id number] Clip Delivery Sytem G4 Xt - [id number] Implanted:Qty: 1 on 03/10/2023 at [facility] [employer] [id number] 04/15/2023 [id number] / / [id number] Clip Delivery Sytem G4 Xtw - [id number] Implanted:Qty: 1 on 03/10/2023 at [facility] [employer] [id number] 12/06/2023 [id number] / / [id number] Mirtaclip G4 - [id number] Implanted:Qty: 1 on 03/10/2023 at [facility] [employer] 11/19/2023 [id number] / / [id number] Device Watchman Flx 31mm - [id number] Implanted:Qty: 1 on 07/31/2023 by Wilbur Rivera MD at [facility] [email or web address] : INTRV CARD [id number] 12/02/2025 [id number] / [id number] documented as of this encounter Advance Directives Documents on File Type Date Recorded Patient Adoption Services Manager Expl anation Advance Directives and Living Will 11/29/2022 ADVANCE DIRECTIVE / LIVING WILL Power of Comedian 11/29/2022 POWER OF A TTORNEY Advance Directives and Living Will 10/24/2014 ADVANCE DIRECTIVE / LIVING WILL Power of Comedian 10/24/2014 POWER OF A TTORNEY * Full Code (Latest Code Status on File) Date Activated Date Inactivated Comments 07/31/2023 10:05 AM 07/31/2023 10:36 PM This order reflects the patients wishes and were consensually agreed upon. Question Answer Comments Discussion of Advance Direct elijah occurred with: Not Discussed due to patient's condition Does the patient have a Living Will? No Does the patient have Health Care Power of Comedian? No * No Code Date Activated Date Inactivated Comments 03/06/2023 5:08 PM 03/07/2023 9:09 PM This order r eflects the patients wishes and were consensually agreed upon. Question Answer Comments Discussion of Advance Directives occurred with: Patient * Full Code Date Activated Date Inactivated Comments 03/06/2023 11:16 AM 03/06/2023 5:08 PM This order reflects the patients wishes and were consensually agreed upon. Question Answer Comments Discussion of Advance Directives occurred with: Patient * Full Code Date Activated Date Inactivated Comments 01/24/2023 1:33 PM 01/25/2023 1:35 PM This order ref lects the patients wishes and were consensually agreed upon. Question Answer Comments Discussion of Advance Direct elijah occurred with: Not Discussed due to patient's condition * Full Code Date Activated Date Inactivated Comments 02/22/2020 8:58 AM 02/22/2020 4:47 PM This order r eflects the patients wishes and were consensually agreed upon. Healthcare Agents on File Name Relationship Healthcare Agent Relationshi p Communication Bright Yuval Adult Child Health Care Agen t (per Health Care Power of Comedian document) Care Teams Strategic Planning Analyst Relationship Specialty Start Date End Date Florentin Calvo DO [address] [place] [address] PCP - General Internal Medicine 02/06/24 documented as of this encounter
--- OUTSIDE RECORDS SUMMARY | 2024-03-21 00:57 | External Medical Summary | Summary of Care ---
Author Name Unknown Organization [facility] Address [address] [place] [address] Phone [phone] Care Team Providers Care Outside Sales Manager Name Role Phone Florentin Calvo DO Primary Care Provider [phone] Reason for Referral * Evaluate & Treat - Unlimited Visits (Within 30 days (routine)) - Authorized Specialty Diagnoses / Procedures Referred By Danny mcdowell Referred To Contact Rheumatology Diagnoses Compression fracture of T12 vertebra, initial encounter ([facility]) Ventura Moya IV, PA-C [address] [place] [address] Referral ID Status Reason Start Date Expiration Date Visits Requested Visits Authorized [id number] Authorized Specialty Services Required 03/18/2024 [id number] Question Answer Referral Priority Within 30 days (routine) Where should this appointment be scheduled? Cris Comments Pt would like [facility] if possible Reason for Visit * Evaluate & Treat - Unlimited Visits (Within 10 days (routine)) - Authorized Specialty Diagnoses / Procedures Referred By Danny mcdowell Referred To Contact Neuro/Ortho Surgery - Spine. / Neurological Surgery Diagnoses Compression fracture of T12 vertebra with routine healing, subsequent encounter Leandro Holly [facility]-C [address] [facility] [place] [address] Referral ID Status Reason Start Date Expiration Date Visits Requested Visits Authorized [id number] Authorized Specialty Services Required 03/11/2024 [id number] Encounter Details Date Type Department Care Team (Late st Contact Info) Description 03/18/2024 3:30 PM EDT Telemedicine Neurosurgery, [place] [address] [place] [address] Massimo Key MD [address] [place] [address] Compression fracture of T12 vertebra, initial encounter ([facility])* Allergies Active Allergy Reactions Criticality Noted Date [...] as of this encounter (statuses as of 03/18/2024) Medications Medication Sig Dispensed Refills Start Date End Date Status OneTouch Verio w/Device KitIndications:Type 2 diabetes mellitus with hemoglobin A1c goal of less than 7.0% ([facility]) Use up to 1 times a day. E11.9 1 Kit 06/19/2021 Active Vitamin D3 50 MCG (1999) Oral CapsuleIndications:V itamin D deficiency Take 2 [...] (Lipitor)Indications :PVD (peripheral vascular disease) ([facility]),Type 2 diabetes mellitus with stage 3a chronic kidney disease and hypertension ([facility]) TAKE ONE TABLET BY MOUTH EVERY DAY DIRECTED 100 Tablet 3 03/31/2023 Active Ipratropium [place] 0.03 % Nasal Solution (Atrovent)Indication s:Chronic rhinitis Administer 2 Sprays into nostril in the morning and 2 Sprays before bedtime. 90 mL 3 04/01/2023 Active Allopurinol 300 MG Oral Tablet (Zyloprim) Take 1 Tablet by mouth at bedtime. 90 Tablet 3 05/16/2023 Active Tiotropium [place]-Olodaterol 2.5-2.5 MCG/ACT Inhalation Aerosol Solution (Stiolto Respimat) Inhale 2 Puffs by mouth in the morning. 12 g 3 05/23/2023 Active Folic Acid 1 MG Oral TabletIndications:Ch ronic atrial fibrillation ([facility]) TAKE ONE [...] Oral Tablet Extended Release 24 Hour (toPROL XL)Indications:Parox ysmal atrial fibrillation (HCC) Take 1 Tablet by [...] Vitamin B-12 100 MCG Oral Tablet (vitamin B-12)Indications:B12 deficiency Take 1 Tablet by mouth in the morning. 90 Tablet 3 02/05/2024 Active Torsemide 10 MG Oral Tablet (Demadex)Indications :Chronic diastolic CHF (congestive heart failure) (HCC) Take 2 Tablets by mouth in the morning. 200 Tablet 3 02/24/2024 Active Apixaban 2.5 MG Oral Tablet (Eliquis)Indications :Paroxysmal atrial fibrillation (HCC) Take 1 Tablet by mouth in the morning and 1 Tablet before bedtime. 60 Tablet 2 03/09/2024 Active Polyethylene Glycol 3350 17 GM/SCOOP Oral Powder (MiraLax) Take 17 g by mouth in the morning and 17 g before bedtime. Dissolve one heaping tablespoon in 8 ounces of water or juice.. 03/12/2024 Active fentaNYL 12 MCG/HR Transdermal Patch 72 HourIndications:Comp ression fracture of T12 vertebra, initial encounter ([facility]) Place 1 Patch over 72 hours topically on the skin every 3 days. For pain control. 10 Patch 03/16/2024 Active oxyCODONE HCl 5 MG Oral Tablet (Oxy IR)Indications:Close d fracture of multiple ribs of left side with routine healing, subsequent encounter Take 0.5 Tablets by mouth every 6 hours as needed for Pain, Breakthrough. 30 Tablet 03/17/2024 Active Levothyroxine Sodium 175 MCG Oral Tablet (Levoxyl)Indications :Acquired hypothyroidism Take 1 Tablet by mouth daily first thing in the morning. 90 Tablet 3 03/17/2024 Active documented as of this encounter (statuses as of 03/18/2024) Active Problems Problem Noted Date Diagnosed Date Compression fracture of T12 vertebra 03/12/2024 Last Assessment & Plan: Increased oxy from 2.5mg to 5mg [id number] prn Ortho spine ref, ?kyphoplasty Constipation 03/12/2024 [...] Obstructive sleep apnea of adult 09/09/2014 Overview: SPACER TYPE BAR AND SEGMENT Last Assessment & Plan: Now just using [...] as of this encounter (statuses as of 03/18/2024) Resolved Problems Problem Noted Date Diagnosed Date [...] as of this encounter (statuses as of 03/18/2024) Immunizations Name Administration Dates Next Due COVID-19 mRNA, LNP-s, No Pre serve, 2-Dose Series (Moderna) 06/23/2021,10/25/2020,09/28/2020 COVID-19, LNP-s, No Preserve , Larry-sucrose, Ages 12+ ([place]) 04/09/2022 COVID-19, MRNA-LNP, 23-24, P F, 30 MCG/0.3 mL, 12 YRS AND ABOVE, IM [email or web address] 06/09/2023 Covid-19, Mrna, Lnp-s, Pf, B ivalent, 30 Mcg, IM, 12 yrs and above ([place]) 09/10/2022 HEP A - Hepatitis A (Adult [...] No 09/29/2023 Does the household have a re gular source of income? (Household - for ages [...] or do you have serious difficulty hearing? No-K[place] can hear w/ hearing aid 03/07/2023 Are [...] as of this encounter Progress Notes * Nita REINOSO, Ventura Killian PA-C - 03/18/2024 9:33 AM EDT NEUROSURGERY TELEMEDICINE NOTE Inga Barakat [id number] 03/18/2024 9:33 AM After connecting to the patient via telephone, the patient was identified by name and date of . Patient was then informed that this was a telephone call only visit. The patient agreed to participate. Total call duration was 16 minutes. CC: T12 compression fracture HPI: Inga Barakat is a 83 year old female who presents to neurosurgery clinic with above stated CC. She experienced a fall a while back and had a T12 inferior endplate compression fracture noted on her imaging. Patient does have significant low back pain according to her daughter Kathy. She has been working with Physical therapy who is coming to the house to help on ADLs and walking. Patient hasa complex medical history with recent Watchman procedure, clots, now on Eliquis, trouble with kneesand hips according to her daughter. There is no new bowel or bladder changes or saddle anesthesia, she was able to walk on her own according to her daughter. She was previously taking oxycodone but is now on fentanyl patches due to the oxycodone potentially causing some memory and cognitive concerns. Imaging was without retropulsion or significant neural compressive component. ROS: No headache No weakness, numbness, ambulatory dysfunction No nausea/vomiting No dizziness, visual changes, hearing changes No seizure like activity No chest pain/shortness of breath No bowel or bladder changes, incontinence, saddle anesthesia PHYSICAL EXAM (this was limited as this was a telephonic visit) General: Patient is AAO x3 COUNSELING: I spent a total of 23 minutes on the date of service in preparation, delivery, and documentation of the care provided to the patient, excluding any time spent on the performance of any procedure or separately billable services. ASSESSMENT AND PLAN: Patient Active Problem List Diagnosis DM type 2, goal HbA1c < 8% (HCC) 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 claudication Hypothyroidism Displacement of cervical intervertebral disc without myelopathy Meniere's disease Paroxysmal atrial fibrillation (HCC) Obstructive sleep apnea of adult Tremor Angiodysplasia of colon with hemorrhage Acquired renal cyst Type 2 diabetes mellitus with polyneuropathy (HCC) Secondary hyperparathyroidism, renal (HCC) Pulmonary hypertension (HCC) Current moderate episode of major depressive disorder without prior episode (HCC) Moderate persistent asthma without complication Gastro-esophageal reflux disease without esophagitis 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 (HCC) Pure hypercholesterolemia Aneurysm of left carotid artery (HCC) Aortic atherosclerosis (HCC) Chronic kidney disease, stage 3b (HCC) PVD (peripheral vascular disease) (HCC) Chronic diastolic CHF (congestive heart failure) (HCC) Type 2 diabetes mellitus with stage 3b chronic kidney disease, without long-term current use of insulin (HCC) Cardiac pacemaker in situ History of endometrial cancer Normocytic anemia Primary osteoarthritis of right knee Severe tricuspid regurgitation History of TIA (transient ischemic attack) Atherosclerosis of curyung coronary artery without angina pectoris S/P mitral valve clip implantation Presence of Watchman left atrial appendage closure device Nocturnal hypoxemia 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 (HCC) Sigmoid diverticulosis Compression fracture of T12 vertebra (HCC) Constipation Chronic obstructive pulmonary disease (HCC) T12 inferior endplate compression fracture. We will get a DEXA scan ordered. Referral to Rheumatology for osteoporosis clinic. We will get standing plain films in 6-8 weeks and have her follow up at that time to assess for stability of the compression fracture. At this time operative management is not necessitated. Patient should continue work with physical therapy and pursue conservative treatment modalities for pain and discomfort. We discussed red flag symptoms in which to contact our officesooner. All questions answered. Ventura Moya IV, PA-C Neurosurgery[address] [address] 03/18/2024 9:33 AM documented in this encounter Plan of Treatment Upcoming Encounters Date Type Department Care Team (Late st Contact Info) Description 03/24/2024 10:00 AM EDT Scheduled Telephone [facility] [place], [facility] [address] [place] [address] Coordinator, [facility] [address] [place] [address] 03/25/2024 8:30 AM EDT Office Visit Hematology/Oncolog y Jerri Zamora [place] [address] [facility] [id number] Nereyda Metz CRNP [address] [place] [address] 03/30/2024 11:20 AM EDT Office Visit Family Practice [address] [place] [address] [address] [place] [address] Florentin Calvo, DO [address] [place] [address] 04/01/2024 11:00 AM EDT Home Visit [facility] at [facility] [address] [facility] [place] [address] Michelle Hurt, RN [address] [facility] [address] 04/05/2024 11:00 AM EDT Imaging Vascular Lab, [facility] [address] [facility] [place] [address] 04/14/2024 10:50 AM EDT Office Visit Vascular Surgery, [facility] [address] [facility] [place] [address] Aj Sahni MD [address] [place] [address] 04/20/2024 3:40 PM EDT Office Visit Family Practice [address] [place] [address] [address] [facility] [address] Florentin Calvo, DO [address] [place] [address] 05/21/2024 1:14 PM EDT Hospital Encounter OR [facility], Operating Room, [facility] - 4th Floor [address] [place] [address] Jana Vieira, DO [address] [facility] [place] [address] 05/21/2024 1:14 PM EDT - 05/21/2024 1:59 PM EDT Surgery OR [facility], Operating Room, [facility] - 4th Floor [address] [facility] [place] [address] Jana Vieira, DO [address] [place] [address] COLONOSCOPY FLEXIBLE PROXIMAL DIAGNOSTIC 06/03/2024 2:15 PM EDT Office Visit Ophthalmology, [facility] [address] [facility] [place] [address] Wilbur Benavides, DO [address] [facility] [place] [address] 07/01/2024 2:30 PM EST Office Visit Gastroenterology, [facility] [address] [facility] [place] [address] Lacy Ronquillo CRNP [address] [facility] [place] [address] 08/09/2024 1:00 PM EST Nurse Only Ancillary 65 [facility] [address] [place] [address] College, Nurse Annual Wellness Visit [address] [place] [address] Scheduled Orders Name Type Priority Associated Diagnoses Orde r Schedule DEXA SCAN/BONE MINERAL AXIAL Medical Imaging Routine Compression fracture of T12 vertebra, initial encounter (HCC) Ordered: 03/18/2024 XR THORACOLUMBAR SPINE MIN 2 VIEWS Medical Imaging Routine Compression fracture of T12 vertebra, initial encounter (HCC) Expected: 05/03/2024, Expires: 04/18/2025 Scheduled Procedures Name Priority Associated Diagnoses Date/Ti me COLONOSCOPY FLEXIBLE PROXIMA L DIAGNOSTIC Diarrhea, unspecified type History of diverticulitis 05/21/2024 1:14 PM EDT ESOPHAGOGASTRODUODENOSCOPY ( EGD), FLEXIBLE, TRANSORAL, DIAGNOSTIC Diarrhea, unspecified type History of diverticulitis 05/21/2024 1:14 PM EDT Scheduled Referrals Name Type Priority Associated Diagnoses Order Schedule HIGH RISK OSTEOPOROSIS CLINIC REFERRAL OP Referral Within 30 days (routine) Compression fracture of T12 vertebra, initial encounter (HCC) Ordered: 03/18/2024 Health Maintenance Due Date Last Done Comments [...] COPD 07/31/2024 07/31/2023 CKD PHOS USE SMARTSET 17997 08/19/202407/26, 05/01/2022, 04/03/2022, Additional history exists Diabetic Foot Exam 09/15/2024 09/15/2023, 0 10/01/2022, 10/26/2021, Additional history exists GFR 09/15/2024 03/15/2024, 07/0 04/2024, 02/24/2024, Additional history exists Depression Monitoring 09/29/2024 09/29/2023 Albumin/Creatinine Ratio 12/08/2024 024, 02/21/2023, 05/01/2022, Additional history exists CKD HGB USE SMARTSET 97022 03/15/202503/15, 03/15/2024, 03/02/2024, Additional history exists TSH [...] this encounter Medical Devices Implanted Type Area Wire Twisting Machine Operator Device Identifier Shelf Expiration Date Model / Serial / Lot Cath Thermodilution 6fr - [id number] Implanted:Qty: 1 on 01/24/2023 by Wilbur Rivera MD at [facility] [employer] [id number] 10/15/2024 [id number] / / [id number] Clip Delivery Sytem G4 Xt - [id number] Implanted:Qty: 1 on 03/10/2023 at [facility] [place] [employer] [id number] 04/15/2023 [id number] / / [id number] Clip Delivery Sytem G4 Xtw - [id number] Implanted:Qty: 1 on 03/10/2023 at [facility] [id number] 12/06/2023 [id number] TW / / [id number] [employer] G4 - [id number] Implanted:Qty: 1 on 03/10/2023 at [facility] 11/19/2023 [id number] / / [id number] Device Watchman Flx 31mm - [id number] Implanted:Qty: 1 on 07/31/2023 by Wilbur Rivera MD at [facility] [employer] : INTRV CARD [id number] 12/02/2025 [id number] / [id number] documented as of this encounter Visit Diagnoses Diagnosis Compression fracture of T12 vertebra, initial encounter ([facility])- Primary Diarrhea, unspecified type History of diverticulitis documented in this encounter Advance Directives Documents on File Type Date Recorded Patient Crop And Soil Technician Expl anation Advance Directives and Living Will 11/29/2022 ADVANCE DIRECTIVE / LIVING WILL Power of Records Management Analyst 11/29/2022 POWER OF A TTORNEY Advance Directives and Living Will 10/24/2014 ADVANCE DIRECTIVE / LIVING WILL Power of Records Management Analyst 10/24/2014 POWER OF A TTORNEY * Full [...] the patient have Health Care Power of Records Management Analyst? No * No Code Date Activated Date [...] Agents on File Name Relationship Healthcare Agent [facility] p Communication [facility] Adult Child Health Care Agen t (per Health Care Power of Records Management Analyst document) Care Teams Outside Sales Manager Relationship Specialty Start Date End Date Florentin Calvo DO [address] [place] [place] [address] PCP - General Internal Medicine 02/06/24 documented as of this encounter
--- OUTSIDE RECORDS SUMMARY | 2024-03-21 00:57 | External Medical Summary | Summary of Care ---
Author Name Unknown Organization [facility] Address [address] [place] [address] Phone [phone] Care Team Providers Care Chief Radiologic Technologist Name Role Phone Grey Calvo DO Primary Care Provider [phone] Encounter Details Date Type Department Care Team (Late st Contact Info) Description 03/17/2024 Refill Family Practice [address] [facility], [place] [address] [place] [address] Grey Calvo DO [address] [place] [address] Acquired hypothyroidism Allergies Active Allergy Reactions Criticality Noted Date Comments Azithromycin Other (Please comment) 12/04/2021 QTC prolongation at [facility] Celecoxib Hives,Rash High 03/24/2013 Other [...] as of this encounter (statuses as of 03/17/2024) Medications Medication Sig Dispensed Refills Start Date End Date Status [employer]ius w/Device KitIndications:Type 2 diabetes mellitus with hemoglobin A1c goal of less than 7.0% ([facility]) Use up to 1 times a day. E11.9 1 Kit 1 Active Vitamin D3 50 MCG (1999 UT) Oral CapsuleIndications: Vitamin D deficiency Take 2 Capsules by mouth in the morning. 60 Capsule 5 2 Active Levalbuterol Tartrate 45 MCG/ACT Inhalation Aerosol (Xopenex HFA)Indications:Ast hma with severity to be determined Inhale by mouth 1 Puff every 4 hours as needed for Wheezing. 15 g 12 2 Active listedplacesTouch Ver[employer] In Vitro Strip (Glucose Blood) Test blood sugars up to 2 times a day E11.9 200 Strip 3 3 Active Atorvastatin Calcium 20 MG Oral Tablet (Lipitor)Indication s:PVD (peripheral vascular disease) ([facility]),Type 2 diabetes mellitus with stage 3a chronic kidney disease and hypertension ([facility]) TAKE ONE TABLET BY MOUTH EVERY DAY DIRECTED 100 Tablet 3 3 Active Ipratropium [place] 0.03 % Nasal Solution (Atrovent)Indicatio ns:Chronic rhinitis Administer 2 Sprays into nostril in the morning and 2 Sprays before bedtime. 90 mL 3 3 Active Allopurinol 300 MG Oral Tablet (Zyloprim) Take 1 Tablet by mouth at bedtime. 90 Tablet 3 3 Active Tiotropium [place]-Olodaterol 2.5-2.5 MCG/ACT Inhalation Aerosol Solution (Stiolto Respimat) Inhale 2 Puffs by mouth in the morning. 12 g 3 3 Active Folic Acid 1 MG Oral TabletIndications:C hronic atrial fibrillation (HCC) TAKE ONE TABLET BY MOUTH EVERY MORNING 100 Tablet 1 4 09/01/19 25 Active Montelukast Sodium 10 MG Oral Tablet (Singulair)Indicati ons:Moderate persistent asthma without complication TAKE ONE TABLET BY MOUTH AT BEDTIME 100 Tablet 3 4 09/01/19 25 Active Sertraline HCl 100 MG Oral Tablet (Zoloft) Take one and one-half Tablets by mouth in the morning. 150 Tablet 3 4 Active Cetirizine HCl 10 MG Oral Tablet (ZyrTEC) Take 1 Tablet by mouth in the morning. 4 Active Metoprolol Succinate ER 25 MG Oral Tablet Extended Release 24 Hour (toPROL XL)Indications:Paro xysmal atrial fibrillation (HCC) Take 1 Tablet by mouth in the morning and 1 Tablet before bedtime. 200 Tablet 3 4 Active Melatonin 3 MG Oral Capsule Take [...] mouth in the evening. 200 Tablet 1 4 Active Vitamin B-12 100 MCG Oral Tablet (vitamin B-12)Indications:B1 2 deficiency Take 1 Tablet by mouth in the morning. 90 Tablet 3 4 Active Torsemide 10 MG Oral Tablet (Demadex)Indication s:Chronic diastolic CHF (congestive heart failure) (HCC) Take 2 Tablets by mouth in the morning. 200 Tablet 3 4 Active Apixaban 2.5 MG Oral Tablet (Eliquis)Indication s:Paroxysmal atrial fibrillation (HCC) Take 1 Tablet by mouth in the morning and 1 Tablet before bedtime. 60 Tablet 2 4 Active Polyethylene Glycol 3350 17 GM/SCOOP Oral Powder (MiraLax) Take 17 g by mouth in the morning and 17 g before bedtime. Dissolve one heaping tablespoon in 8 ounces of water or juice.. 4 Active Naloxone HCl 4 MG/0.1ML NA LIQD FOR CAREGIVERIndication s:Compression fracture of T12 vertebra, initial encounter ([facility]) Administer 1 spray into 1 nostril for suspected opioid overdose. Seek immediate medical attention. [email or web address] 1 Each 3 4 03/17/20 24 Active fentaNYL 12 MCG/HR Transdermal Patch 72 HourIndications:Com pression fracture of T12 vertebra, initial encounter ([facility]) Place 1 Patch over 72 hours topically on the skin every 3 days. For pain control. 10 Patch 4 Active oxyCODONE HCl 5 MG Oral Tablet (Oxy IR)Indications:Clos ed fracture of multiple ribs of left side with routine healing, subsequent encounter Take 0.5 Tablets by mouth every 6 hours as needed for Pain, Breakthrough. 30 Tablet 4 Active Levothyroxine Sodium 175 MCG Oral Tablet (Levoxyl)Indication s:Acquired hypothyroidism Take 1 Tablet by mouth daily first thing in the morning. 90 Tablet 3 4 Active Levothyroxine Sodium 150 MCG Oral Tablet (Levoxyl)Indication s:Acquired hypothyroidism Take 1 Tablet by mouth daily first thing in the morning. 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 Last Assessment & Plan: Now just [...] as of this encounter (statuses as of 03/17/2024) Resolved Problems Problem Noted Date Diagnosed Date Resolved Date Paroxysmal SVT (supraventricular tachycardia) 10/24/1910/24/2023 Hypertensive chronic kidney disease with stage 1 [...] as of this encounter (statuses as of 03/17/2024) Immunizations Name Administration Dates Next Due COVID-19 mRNA, LNP-s, No Pre serve, 2-Dose Series (Moderna) 06/23/2021,10/25/2020,09/28/2020 COVID-19, LNP-s, No Preserve , Larry-sucrose, Ages 12+ (Pfizer) 04/09/2022 COVID-19, MRNA-LNP, 23-24, P F, 30 MCG/0.3 mL, 12 YRS AND ABOVE, IM ([employer]) 06/09/2023 Covid-19, Mrna, Lnp-s, Pf, B ivalent, [...] or do you have serious difficulty hearing? [place] can hear w/ hearing aid 03/07/2023 [...] Telephone Encounter - Grey Calvo DO - 03/17/2024 7:20 PM EDTSigned Prescriptions: Disp Refills Levothyroxine Sodium 175 MCG Oral Tablet (*90 Tab*3 Sig: Take 1 Tablet by mouth daily first thing in the morning.Authorizing Provider: GREY CALVO * Telephone Encounter - Hilda Awad LPN - 03/17/2024 3:36 PM EDT Spoke to son, aware and will comply Pharmacy confirmed. * Telephone Encounter - Hilda Awad LPN - 03/17/2024 3:34 PM EDT ----- Message from Grey Calvo DO sent at 03/17/2024 8:57 AM EDT ----- TSH is abnormal. Renal function has worsened slightly. Iron level is normal. Increase Levothyroxine to 175 mcg daily on empty stomach. Repeat TSH, Free t4 in 2 months. Keep appointment with neurosurgery tomorrow documented in this encounter Plan of Treatment Upcoming Encounters Date Type Department Care Team (Late st Contact Info) Description 03/18/2024 3:30 PM EDT Telemedicine Neurosurgery, [place] [address] [place] [address] Massimo Key MD [address] [place] [address] 03/24/2024 10:00 AM EDT Scheduled Telephone [facility], [facility] [address] [facility] [place] [address] Coordinator, [facility] [address] [facility] [place] [address] 03/25/2024 8:30 AM EDT Office Visit [facility] [address] [facility] [place] [address] Nereyda Metz CRNP [address] [place] [address] [place] [address] 03/30/2024 11:20 AM EDT Office Visit Family Practice [address] [facility] [place] [address] [place] [address] Grey Calvo DO [address] [place] [address] 04/01/2024 11:00 AM EDT Home Visit [facility], [facility] [address] [facility] [place] [address] Michelle Hurt, RN [address] [place] [address] 04/05/2024 11:00 AM EDT Imaging Vascular Lab, [facility] [address] [facility] [place] [address] 04/14/2024 10:50 AM EDT Office Visit Vascular Surgery, [facility] [address] [facility] [place] [address] Aj Sahni MD [address] [place] [address] 04/20/2024 3:40 PM EDT Office Visit Family Practice [address] [place] [address] [address] [place] [address] Grey Calvo, [address] [place] [address] 05/21/2024 1:14 PM EDT Hospital Encounter OR GL, Operating Room, [facility] - 4th Floor [address] [address] Jana Vieira, DO [address] [place] [address] 05/21/2024 1:14 PM EDT - 05/21/2024 1:59 PM EDT Surgery OR [facility], Operating Room, [facility] - 4th Floor [address] [address] Jana Vieira, DO [address] [place] [address] COLONOSCOPY FLEXIBLE PROXIMAL DIAGNOSTIC 06/03/2024 2:15 PM EDT Office Visit Ophthalmology, [facility] [address] [place] [address] Wilbur Benavides, DO [address] [facility] [place] [address] 07/01/2024 2:30 PM EST Office Visit Gastroenterology, [facility] [address] [facility] [place] [address] Lacy Ronquillo [facility] [address] 08/09/2024 1:00 PM EST Nurse Only Ancillary 65 [facility] [address] [place] [address] College, Nurse Annual Wellness Visit [address] [address] Scheduled Orders Name Type Priority Associated Diagnoses Orde r Schedule TSH Lab Routine Acquired hypothyroidism Expected: 05/18/2024, Expires: 03/17/2025 T4, FREE Lab Routine Acquired hypothyroidism Expected: 05/18/2024, Expires: 03/17/2025 Scheduled Procedures Name Priority Associated Diagnoses Date/Ti [...] COPD 07/31/2024 07/31/2023 CKD PHOS USE SMARTSET 41539 08/19/202407/26, 05/01/2022, 04/03/2022, Additional history exists Diabetic Foot Exam 09/15/2024 09/15/2023, 0 10/01/2022, 10/26/2021, Additional history exists GFR 09/15/2024 03/15/2024, 07/0 04/2024, 02/24/2024, Additional history exists Depression Monitoring 09/29/2024 09/29/2023 Albumin/Creatinine Ratio 12/08/2024 024, 02/21/2023, 05/01/2022, Additional history exists CKD HGB USE SMARTSET 19096 03/15/202503/15, 03/15/2024, 03/02/2024, Additional history exists TSH [...] this encounter Medical Devices Implanted Type Area Order Booker Device Identifier Shelf Expiration Date Model / Serial / Lot Cath Thermodilution 6fr - [id number] Implanted:Qty: 1 on 01/24/2023 by Wilbur Rivera MD at [facility] [employer] [id number] 10/15/2024 [id number] / / [id number] Clip Delivery Sytem G4 Xt - [id number] Implanted:Qty: 1 on 03/10/2023 at [facility] [employer] [id number] 04/15/2023 [id number] / / [id number] Clip Delivery Sytem G4 Xtw - [id number] Implanted:Qty: 1 on 03/10/2023 at [facility] [employer] [id number] 12/06/2023 [id number] / / [id number] Mirtaclip G4 - [id number] Implanted:Qty: 1 on 03/10/2023 at [facility] [employer] 11/19/2023 [id number] / / [id number] Device Watchman Flx 31mm - [id number] Implanted:Qty: 1 on 07/31/2023 by Wilbur Rivera MD at [facility] [employer] : INTRV CARD [id number] 12/02/2025 [id number] / [id number] documented as of this encounter Visit Diagnoses Diagnosis Acquired hypothyroidism Unspecified hypothyroidism Diarrhea, unspecified type History of diverticulitis documented in this encounter Advance Directives Documents on File Type Date Recorded Patient 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 No * No Code Date Activated Date [...] on File Name Relationship Healthcare Agent [facility] Communication [facility] [place] Adult Child Health Care Agen t (per Health Care Power of Bass String Winder document) Care Teams Chief Radiologic Technologist Relationship Specialty Start Date End Date Grey Calvo DO [address] [place] [address], [place] [address] PCP - General Internal Medicine 02/06/24 documented as of this encounter
--- OUTSIDE RECORDS SUMMARY | 2024-03-21 00:57 | External Medical Summary | Summary of Care ---
Author Name Unknown Organization [facility] Address [address] [place] [address] Phone [phone] Care Team Providers Care Director Of Creative Services Name Role Phone Florentin Calvo DO Primary Care Provider [phone] Reason for Visit * Reason Comments Acute Encounter Details Date Type Department Care Team (Latest Contact Info) Description 03/15/2024 4:00 PM EDT Office Visit Family Practice [address] [place] [address] [address] [place] [id number] Florentin Calvo DO [address] [place] [address] Compression fracture of T12 vertebra, initial encounter ([facility]; Paroxysmal atrial fibrillation (HCC); Type 2 diabetes mellitus with stage 3b chronic kidney disease, without long-term current use of insulin (HCC); Secondary hyperparathyroidism, renal (HCC); 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 claudication; Acquired hypothyroidism; Obstructive sleep apnea of adult; Angiodysplasia of colon with hemorrhage; Current moderate episode of major depressive disorder without prior episode (HCC); Moderate persistent asthma without complication; History of TIA (transient ischemic attack); Atherosclerosis of [place] coronary artery of [place] heart without angina pectoris; S/P mitral valve clip implantation; Presence of Watchman left atrial appendage closure device; Nocturnal hypoxemia; Constipation, unspecified constipation type; Severe tricuspid regurgitation Allergies Active Allergy Reactions Criticality Noted Date Comments Azithromycin Other (Please comment) 12/04/2021 QTC prolongation at [facility] Celecoxib Hives,Rash High 03/24/2013 Other reaction(s): [...] Dispensed Refills Start Date End Date Status AnamariaTouch Ifeoma w/Device KitIndications:Typ e 2 diabetes mellitus [...] Tablet (Lipitor)Indicatio ns:PVD (peripheral vascular disease) ([facility]),Type 2 diabetes mellitus with stage 3a chronic kidney disease and hypertension ([facility]) TAKE ONE TABLET BY MOUTH EVERY DAY DIRECTED 100 Tablet 3 3 Active Ipratropium Severn 0.03 % Nasal Solution (Atrovent)Indicati ons:Chronic rhinitis Administer 2 Sprays into nostril in the morning and 2 Sprays before bedtime. 90 mL 3 3 Active Allopurinol 300 MG Oral Tablet (Zyloprim) Take 1 Tablet by mouth at bedtime. 90 Tablet 3 3 Active Tiotropium Severn-Olodaterol 2.5-2.5 MCG/ACT Inhalation Aerosol Solution (Stiolto Respimat) Inhale 2 Puffs by mouth in the morning. 12 g 3 3 Active Folic Acid 1 MG Oral TabletIndications: [...] Oral Tablet Extended Release 24 Hour (toPROL XL)Indications:Par oxysmal atrial fibrillation (HCC) Take 1 Tablet by [...] Vitamin B-12 100 MCG Oral Tablet (vitamin B-12)Indications:B 12 deficiency Take 1 Tablet by mouth in the morning. 90 Tablet 3 4 Active Torsemide 10 MG Oral Tablet (Demadex)Indicatio ns:Chronic diastolic CHF (congestive heart failure) (HCC) Take 2 Tablets by mouth in the morning. 200 Tablet 3 4 Active Apixaban 2.5 MG Oral Tablet (Eliquis)Indicatio ns:Paroxysmal atrial fibrillation (HCC) Take 1 Tablet by mouth in the morning and 1 Tablet before bedtime. 60 Tablet 2 4 Active Polyethylene Glycol 3350 17 GM/SCOOP Oral Powder (MiraLax) Take 17 g by mouth in the morning and 17 g before bedtime. Dissolve one heaping tablespoon in 8 ounces of water or juice.. 4 Active Levothyroxine Sodium 150 MCG Oral Tablet (Levoxyl)Indicatio ns:Acquired hypothyroidism Take 1 Tablet by mouth daily first thing in the morning. 100 Tablet 3 4 03/17/20 24 Discontinued Fiber Select Gummies Oral Tablet Chewable Take 1 Tablet by mouth in the morning. 03/15/20 24 Discontinued(Me dication List Clean Up) Colestipol HCl 1 GM Oral Tablet (Colestid) Take 1 Tablet by mouth in the morning and 1 Tablet before bedtime. 60 Tablet 3 4 03/15/20 24 Discontinued(Me dication List Clean Up) Diphenoxylate-Atro pine 2.5-0.025 MG Oral Tablet (Lomotil)Indicatio ns:Chronic diarrhea Take 1 Tablet by mouth 2 times a day as needed for Diarrhea. 60 Tablet 3 4 03/15/20 24 Discontinued(Me dication List Clean Up) Lidocaine 4 % External Patch (Aspercreme) Place 1 Patch topically on the skin daily. 03/15/20 24 Discontinued(Or dication List Clean Up) oxyCODONE HCl 5 MG Oral Tablet (Oxy IR)Indications:Stephanie sed fracture of multiple ribs of left side with routine healing, subsequent encounter Take 1 Tablet by mouth every 6 hours as needed for Pain, Moderate. 30 Tablet 4 03/17/20 24 Discontinued(Re fill) fentaNYL 12 MCG/HR Transdermal Patch 72 HourIndications:Co mpression fracture of T12 vertebra, initial encounter ([facility]) Place 1 Patch over 72 hours topically on the skin every 3 days. For pain control. 10 Patch 4 03/15/20 24 Discontinued(Re fill) fentaNYL 12 MCG/HR Transdermal Patch 72 HourIndications:Co mpression fracture of T12 vertebra, initial encounter ([facility]) Place 1 Patch over 72 hours topically on the skin every 3 days. For pain control. 10 Patch 4 03/16/20 24 Discontinued(Tr ansferred) documented as of this encounter (statuses as of 03/17/2024) Active Problems Problem Noted Date Diagnosed Date Compression fracture of T12 vertebra 03/12/2024 Last Assessment & Plan: Increased oxy from 2.5mg to 5mg [id number] prn Ortho spine ref, ?kyphoplasty Constipation 03/12/2024 [...] mitral valve clip implantation 03/06/2023 Atherosclerosis of [place] 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 02/13/2023 Last Assessment & Plan: Continue statin, sotalol. ASA History of TIA (transient ischemic attack) 11/29 Last Assessment & Plan: -Recent admission to [facility], presented with numbness of tongue and [...] Medication Regimen: Beta Graciela Therapy: Metoprolol Tartrate EY Inhibitor/ARB Therapy: No YE/ARB/ARNI secondary to: hypotension [...] Obstructive sleep apnea of adult 09/09/2014 Overview: STORE COORDINATOR Last Assessment & Plan: Now just [...] Sign Reading Time Taken Comments Blood Pressure 114/54 03/15/2024 4:08 PM EDT Pulse 88 03/15/2024 4:08 PM EDT Temperature 36.1 C (97 F) 03/15/2024 4:08 PM EDT Respiratory Rate 20 03/15/2024 4:08 PM EDT Oxygen Saturation - - Inhaled Oxygen Concentration - - Weight 72.8 kg (160 lb 6.4 oz) 03/15/2024 4:08 P M EDT Height 165.1 cm (5' 5") 03/15/2024 4:08 PM EDT Body Mass Index 26.69 03/15/2024 4:08 PM EDT documented in this encounter Functional Status Functional Status Response Date of Assess ment Are you deaf or do you have serious difficulty hearing? No-[place] can hear w/ hearing aid 03/07/2023 [...] encounter Progress Notes * Florentin Calvo, - 03/15/2024 4:51 PM EDT SUBJECTIVE: Inga Barakat is a 83 year old female. Chief Complaint Patient presents with Acute HPI: Patient is an 83 year old female with a history of Atrial Fibrillation, Pacemaker Implant, Severe Mitral Regurgitation repaired with mitral valve clip, Watchman Atrial Appendage Closure Device placedon 07/31/2023, Severe Tricuspid Valve Regurgitation, Pulmonary HTN, CKD stage III, Lumbar Spinal Fusion, Asthma, TIA, Essential tremor, Adenocarcinoma of the Uterus treated with Hysterectomy, Iron Deficiency Anemia due to chronic GI blood loss, and Chronic Diastolic CHF that is seen for ER follow up. The patient was in the [facility] ED on 03/07/2024 one week post fall. Patient has acute mild T 12 compression fracture on imaging. Pain is not controled on Oxycodone 5 mg four times a day. She is unable to get out of bed without assistance due to pain. Patient was started on Miralax due to stool retained in colon on CT abdomen and pelvis. Patient is scheduled to stop Apixaban on and startASA 81 mg daily. Colonoscopy to assess chronic diarrhea will be done after Apixaban stopped. Chronic shortness of breath is stable. No chest pain is present. Weight is down and appetite is fair. The patient was brought to the visit by her son. Advanced directive discussed. The patient does not wishto have CPR, mechanical ventilation, defibrillation, or permanent feeding tube. She is not sure about dialysis. She would like to be treated with antibiotics and blood products if necessary in the future. Patient Active Problem List Diagnosis DM type [...] of TIA (transient ischemic attack) Atherosclerosis of [place] coronary artery without angina pectoris S/P mitral valve clip implantation Presence of Watchman left atrial appendage closure device Nocturnal hypoxemia 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 (HCC) Sigmoid diverticulosis Compression fracture of T12 vertebra (HCC) Constipation Chronic obstructive pulmonary disease (HCC) Current Outpatient Medications Medication Sig Dispense Refill Vitamin D3 50 MCG (1999 UT) Oral Capsule Take 2 Capsules by mouth in the morning. 60 Capsule 5 Atorvastatin Calcium 20 MG Oral Tablet (Lipitor) TAKE ONE TABLET BY MOUTH EVERY DAY DIRECTED 100Tablet 3 Allopurinol 300 MG Oral Tablet (Zyloprim) Take 1 Tablet by mouth at bedtime. 90 Tablet 3 Folic Acid 1 MG Oral Tablet TAKE ONE TABLET BY MOUTH EVERY MORNING 100 Tablet 1 Montelukast Sodium 10 MG Oral Tablet (Singulair) TAKE ONE TABLET BY MOUTH AT BEDTIME 100 Tablet 3 Sertraline HCl 100 MG Oral Tablet (Zoloft) Take one and one-half Tablets by mouth in the morning. 150 Tablet 3 Cetirizine HCl 10 MG Oral Tablet (ZyrTEC) Take 1 Tablet by mouth in the morning. Levothyroxine Sodium 150 MCG Oral Tablet (Levoxyl) Take 1 Tablet by mouth daily first thing in the morning. 100 Tablet 3 Metoprolol Succinate ER 25 MG Oral Tablet Extended Release 24 Hour (toPROL XL) Take 1 Tablet by mouth in the morning and 1 Tablet before bedtime. 200 Tablet 3 Acetaminophen 500 MG Oral Tablet (Tylenol) Take 2 Tablets by mouth every 6 hours as needed. Max 6 tablets per day (3000 mg) Pantoprazole Sodium 40 MG Oral Tablet Delayed Release (Protonix) Take 1 Tablet by mouth in the morning and 1 Tablet by mouth in the evening. 200 Tablet 1 Vitamin B-12 100 MCG Oral Tablet (vitamin B-12) Take 1 Tablet by mouth in the morning. 90 Tablet 3 Torsemide 10 MG Oral Tablet (Demadex) Take 2 Tablets by mouth in the morning. 200 Tablet 3 Apixaban 2.5 MG Oral Tablet (Eliquis) Take 1 Tablet by mouth in the morning and 1 Tablet before bedtime. 60 Tablet 2 oxyCODONE HCl 5 MG Oral Tablet (Oxy IR) Take 1 Tablet by mouth every 6 hours as needed for Pain, Moderate. 30 Tablet 0 Polyethylene Glycol 3350 17 GM/SCOOP Oral Powder (MiraLax) Take 17 g by mouth in the morning and 17g before bedtime. Dissolve one heaping tablespoon in 8 ounces of water or juice.. fentaNYL 12 MCG/HR Transdermal Patch [address] 1 Patch over 72 hours topically on the skin every 3 days. For pain control. 10 Patch 0 Roadhopuch Verio w/Device Kit Use up to 1 times a day. E11.9 1 Kit 0 Levalbuterol Tartrate 45 MCG/ACT Inhalation Aerosol (Xopenex HFA) Inhale by mouth 1 Puff every 4 hours as needed for Wheezing. 15 g 12 OneTouch Verio In Vitro Strip (Glucose Blood) Test blood sugars up to 2 times a day E11.9 200 Strip3 Ipratropium Severn 0.03 % Nasal Solution (Atrovent) Administer 2 Sprays into nostril in the morning and 2 Sprays before bedtime. 90 mL 3 Tiotropium Severn-Olodaterol 2.5-2.5 MCG/ACT Inhalation Aerosol Solution (Stiolto Respimat) Inhale2 Puffs by mouth in the morning. 12 g 3 Melatonin 3 MG Oral Capsule Take 1 Capsule by mouth at bedtime. No current facility-administered medications for this visit. The patient's medication list was reviewed and updated as needed. 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 Obstructive sleep apnea of adult 09/09/2014 STORE COORDINATOR Pleural effusion Pulmonary arterial hypertension ([facility]) Pure hypercholesterolemia 07/02/2021 PVD (peripheral vascular disease) ([facility]) 05/15/2022 Retinopathy Secondary hyperparathyroidism, renal ([facility]) 12/17/2018 Severe mitral valve regurgitation 10/30/2022 Severe tricuspid regurgitation 11/18/2022 Spinal stenosis 07/2002 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 claudication 03/24/2013 Vertigo 03/24/2013 Past Surgical History: Procedure Laterality Date COLONOSCOPY, DIAGNOSTIC (RECTUM) 10/12/2014 inflammatory tissue on bx, diverticulosis/[facility] COLONOSCOPY, DIAGNOSTIC (RECTUM) 01/05/2016 diverticulosis, multiple non-bleeding colonic angioectasias COLONOSCOPY, DIAGNOSTIC (RECTUM) 04/15/2016 angiodysplastic lesion, diverticulosis/COLONOSCOPY FLEXIBLE PROXIMAL DIAGNOSTIC performed by Izzy Stone MD at [facility] COLONOSCOPY, DIAGNOSTIC (RECTUM) 11/10/2020 Hemorrhoids, multi polyps, diverticulosis in sigmoid colon/ biopsy show adenomatous polyp/ COLONOSCOPY FLEXIBLE PROXIMAL DIAGNOSTIC performed by Maine Stone MD at [facility] COLONOSCOPY, DIAGNOSTIC (RECTUM) 03/11/2022 poor prep / [facility] CORONARY ANGIOGRAPHY W/RIGHT+LEFT CATH Right 01/24/2023 CORONARY ANGIOGRAPHY W/RIGHT+LEFT CATH performed by Wilbur Rivera MD at [facility] CYSTOSCOPY 06/2012 EGD, FLEXIBLE, DIAGNOSTIC 10/12/2014 normal bx, HH/[facility] EGD, FLEXIBLE, DIAGNOSTIC 01/05/2016 ESOPHAGOGASTRODUODENOSCOPY (EGD), FLEXIBLE, TRANSORAL, DIAGNOSTIC performed by Maine Stone MD at [facility] EGD, FLEXIBLE, DIAGNOSTIC 03/11/2022 Multiple small non-bleeding fundic gland polyps / [facility] EGD, FLEXIBLE, DIAGNOSTIC 12/09/2022 mild-mod inflammation / [facility] LAPAROSCOPY TOTAL HYSTX, UTERUS 250GM OR LESS TUBE/OVARY N/A 02/22/2020 ROBOTIC LAPAROSCOPIC HYSTERECTOMY REMOVAL TUBES AND OVARIES FOR UTERUS 250GM OR LESS performed by Florentin Perez MD at [facility] LAPAROSCOPY; CHOLECYSTECTOMY N/A 06/06/2020 LIGATE/CUT OVIDUCT(S) MAMMOGRAM BREAST NEEDLE BIOPSY CORE LEFT Left 09/19/2015 benign NECK SPINE FUSION (CERV, BELOW C2) 1993 1999,2011 PATIENT EDU, LUMBAR LAMINECTOMY 2001 1996 too PERC CLOSURE TRANSCATH LEFT ATRIAL APPENDAGE W/ENDOCARDIAL IMPLANT Bilateral 07/31/2023 PERCUTANEOUS CLOSURE LEFT ATRIAL APPENDAGE IMPLANT performed by Wilbur Rivera MD at [facility] ME TONSILLECTOMY PRIMARY/SECONDARY LESS THAN AGE 12 Bilateral REPAIR RUPTURED ROTATOR CUFF, ACUTE Left 08/08/2015 SINUS SURGERY PROCEDURE NEC 1994 TRANSCATH REPAIR MITRAL VALVE, INITIAL Bilateral 03/06/2023 TRANSCATHETER MITRAL VALVE REPAIR performed by Wilbur Rivera MD at [facility] Review of patient's allergies indicates: Allergen Reactions [...] Azithromycin Other (Please comment) QTC prolongation at [facility] Nickel Swelling Other reaction(s): Unknown Review of Systems Constitutional: Positive for activity change (due to pain from t 12 fracture), fatigue and unexpected weight change. Negative for fever. HENT: Negative for congestion, sore throat and trouble swallowing. Respiratory: Positive for shortness of breath. Negative for cough and wheezing. Cardiovascular: Positive for leg swelling. Negative for chest pain and palpitations. Gastrointestinal: Positive for constipation and diarrhea. Negative for abdominal pain, blood in stool, nausea and vomiting. Genitourinary: Negative for dysuria, frequency and hematuria. Musculoskeletal: Positive for arthralgias, back pain and gait problem. Neurological: Positive for tremors. Negative for dizziness, syncope and headaches. Psychiatric/Behavioral: Positive for dysphoric mood and sleep disturbance. Negative for confusion and decreased concentration. OBJECTIVE: BP 114/54 | Pulse 88 | Temp 36.1 C (97 F) | Resp 20 | Ht 1.651 m (5' 5") | Wt 72.8 kg (160 lb 6.4 oz) | BMI 26.69 kg/m | BSA 1.83 m Physical Exam Vitals and nursing note reviewed. Constitutional: General: She is not in acute distress. Appearance: Normal appearance. She is not toxic-appearing. HENT: Head: Normocephalic and atraumatic. Cardiovascular: Rate and Rhythm: Normal rate and regular rhythm. Heart sounds: No murmur heard. No gallop. Pulmonary: Effort: Pulmonary effort is normal. Breath sounds: Normal breath sounds. No wheezing, rhonchi or rales. Abdominal: General: Bowel sounds are normal. There is no distension. Palpations: Abdomen is soft. Tenderness: There is no abdominal tenderness. Musculoskeletal: Right lower leg: Edema present. Left lower leg: Edema present. Neurological: Mental Status: She is alert. Mental status is at baseline. Motor: Weakness present. Gait: Gait abnormal. Psychiatric: Mood and Affect: Mood is depressed. Affect is flat. PLAN AND ASSESSMENT: Compression fracture of T12 vertebra, initial encounter ([facility]) (Primary) - fentaNYL 12 MCG/HR Transdermal Patch 72 Hour; Place 1 Patch over 72 hours topically on the skin every 3 days. For pain control. Paroxysmal atrial fibrillation ([facility]) - TSH WITH FREE T4 IF INDICATED; Future; Expected date: 03/15/2024 Continue Metoprolol ER Stop Apixaban on 03/25 Start ASA 81 mg on 03/26 Type 2 diabetes mellitus with stage 3b chronic kidney disease, without long-term current use of insulin ([facility]) - COMPREHENSIVE METABOLIC PANEL; Future; Expected date: 03/15/2024 - CBC WITH WBC DIFFERENTIAL AND ANEMIA REFLEX WORKUP; Future; Expected date: 03/15/2024 Diet controlled DM Continue to follow with Nephrology Secondary hyperparathyroidism, renal ([facility]) 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 claudication Patient may be candidate for Vertebroplasty Would need to wait until after 03/26/2024 Acquired hypothyroidism Continue Levothyroxine Obstructive sleep apnea of adult Angiodysplasia of colon with hemorrhage Current moderate episode of major depressive disorder without prior episode ([facility]) Continue Sertraline Moderate persistent asthma without complication Continue Montelukast, and Stiolto History of TIA (transient ischemic attack) Atherosclerosis of [place] coronary artery of [place] heart without angina pectoris Continue Metoprolol ER, and start ASA on 03/26 S/P mitral valve clip implantation Presence of Watchman left atrial appendage closure device Nocturnal hypoxemia Constipation, unspecified constipation type Continue Miralax Colonoscopy scheduled. Severe tricuspid regurgitation Follow Up: Return in about 2 weeks (around 03/29/2024), or if symptoms worsen or fail to improve. Florentin Calvo DO 4:51 PM 03/15/2024 documented in this encounter Nursing Notes * Hilda Awad LPN - 03/15/2024 4:02 PM EDT Problems with one or two loose stools per day, liquid. Smaller amount stool is somewhat pudding consistency. Pain is lower left side of back documented in this encounter Miscellaneous Notes * Result Encounter Note - RiteshHilda SLIME Lopez - 03/17/2024 3:37 PM EDT See telephone encounter. documented in this encounter Plan of Treatment Upcoming Encounters Date Type Department Care Team (Late st Contact Info) Description 03/18/2024 3:30 PM EDT Telemedicine Neurosurgery, [place] [address] [place] [address] Massimo Key MD [address] [place] [address] 03/24/2024 10:00 AM EDT Scheduled Telephone [facility], [facility] [address] [facility] [place] [address] Coordinator, [facility] [address] [facility] [place] [address] 03/25/2024 8:30 AM EDT Office Visit Hematology/Oncolog y [facility] [address] [facility] [place] [address] Nereyda Metz CRNP [address] [place] [address] 03/30/2024 11:20 AM EDT Office Visit Family Practice [address] [facility] [address] [facility] [place] [address] Florentin Calvo DO [address] [facility] [address] 04/01/2024 11:00 AM EDT Home Visit [facility] [place], [facility] [address] [facility] [place] [address] Michelle Hurt, RN [address] [place] [address] 04/05/2024 11:00 AM EDT Imaging Vascular Lab, [facility] 2nd [facility] [address] [facility] [place] [address] 04/14/2024 10:50 AM EDT Office Visit Vascular Surgery, [facility] [address] [facility] [place] [address] Aj Sahni MD [address] [place] [address] 04/20/2024 3:40 PM EDT Office Visit Family [address] [facility] [place] [address] Florentin Calvo, DO [address] [place] [address] 05/21/2024 1:14 PM EDT Hospital Encounter OR [facility], Operating Room, [facility] - 4th Floor [address] [facility] [place] [address] Jana Vieira, DO [address] [facility] [place] [address] 05/21/2024 1:14 PM EDT - 05/21/2024 1:59 PM EDT Surgery OR [facility], Operating Room, [facility] - 4th Floor [address] [place] [address] Jana Vieira, DO [address] [facility] [place] [address] COLONOSCOPY FLEXIBLE PROXIMAL DIAGNOSTIC 06/03/2024 2:15 PM EDT Office Visit Ophthalmology, [facility] [address] [facility] [place] [address] Wilbur Benavides, DO [address] [facility] [place] [address] 07/01/2024 2:30 PM EST Office Visit Gastroenterology, [facility] [address] [place] [address] Lacy Ronquillo CRNP [address] [place] [address] 08/09/2024 1:00 PM EST Nurse Only Ancillary [address] [facility] [address] [facility], [place] [address] College, Nurse Annual Wellness Visit [facility] [address] [facility], [place] [address] Scheduled Procedures Name Priority Associated Diagnoses Date/Ti [...] COPD 07/31/2024 07/31/2023 CKD PHOS USE SMARTSET 58686 08/19/202407/26, 05/01/2022, 04/03/2022, Additional history exists Diabetic Foot Exam 09/15/2024 09/15/2023, 0 10/01/2022, 10/26/2021, Additional history exists GFR 09/15/2024 03/15/2024, 07/0 04/2024, 02/24/2024, Additional history exists Depression Monitoring 09/29/2024 09/29/2023 Albumin/Creatinine Ratio 12/08/2024 024, 02/21/2023, 05/01/2022, Additional history exists CKD HGB USE SMARTSET 55527 03/15/202503/15, 03/15/2024, 03/02/2024, Additional history exists TSH [...] encounter Medical Devices Implanted Type Area Corporate Specialist Device Identifier Shelf Expiration Date Model / Serial / Lot Cath Thermodilution 6fr - [id number] Implanted:Qty: 1 on 01/24/2023 by Wilbur Rivera MD at [facility] [employer] TERE [id number] 10/15/2024 [id number] / / [id number] Clip Delivery Sytem G4 Xt - [id number] Implanted:Qty: 1 on 03/10/2023 at [facility] [employer] [id number] 04/15/2023 [id number] / / [id number] Clip Delivery Sytem G4 Xtw - [id number] Implanted:Qty: 1 on 03/10/2023 at [facility] [employer] [id number] 12/06/2023 [id number] / / [id number] Mirtac[employer] G4 - [id number] Implanted:Qty: 1 on 03/10/2023 at [facility] [employer] 11/19/2023 [id number] / / [id number] Device Watchman Flx 31mm - [id number] Implanted:Qty: 1 on 07/31/2023 by Wilbur Rivera MD at [facility] [employer] : INTRV CARD [id number] 12/02/2025 [id number] documented as of this encounter Procedures Procedure Name Priority Date/Time Associated Diagnosis Comments ANEMIA REFLEX CHEMISTRY HOLD Routine 03/15/2024 5:09 PM EDT Type 2 diabetes mellitus with stage 3b chronic kidney disease, without long-term current use of insulin (HCC) ANEMIA CBC Routine 03/15/2024 5:09 PM EDT Type 2 diabetes mellitus with stage 3b chronic kidney disease, without long-term current use of insulin (HCC) DIFFERENTIAL, AUTOMATED Routine 03/15/2024 5:09 PM EDT Type 2 diabetes mellitus with stage 3b chronic kidney disease, without long-term current use of insulin (HCC) DIFFERENTIAL, AUTOMATED Routine 03/15/2024 5:09 PM EDT Type 2 diabetes mellitus with stage 3b chronic kidney disease, without long-term current use of insulin (HCC) TSH WITH FREE T4 IF INDICATED Routine 03/15/2024 5:09 PM EDT Paroxysmal atrial fibrillation (HCC) RETICULOCYTE PANEL Routine 03/15/2024 5: 09 PM EDT Type 2 diabetes mellitus with stage 3b chronic kidney disease, without long-term current use of insulin (HCC) COMPREHENSIVE METABOLIC PANEL Routine 03/15/2024 5:09 PM EDT Type 2 diabetes mellitus with stage 3b chronic kidney disease, without long-term current use of insulin (HCC) FOLIC ACID Routine 03/15/2024 5:09 PM EDT Type 2 diabetes mellitus with stage 3b chronic kidney disease, without long-term current use of insulin (HCC) IRON SCREEN, INCLUDING TIBC Routine 03/15/2024 5:09 PM EDT Type 2 diabetes mellitus with stage 3b chronic kidney disease, without long-term current use of insulin (HCC) TSH Routine 03/15/2024 5:09 PM EDT Type 2 diabetes mellitus with stage 3b chronic kidney disease, without long-term current use of insulin (HCC) T4, FREE Routine 03/15/2024 5:09 PM EDT Paroxysmal atrial fibrillation (HCC) FERRITIN Routine 03/15/2024 5:09 PM EDT Type 2 diabetes mellitus with stage 3b chronic kidney disease, without long-term current use of insulin (HCC) VITAMIN B12 Routine 03/15/2024 5:09 PM EDT Type 2 diabetes mellitus with stage 3b chronic kidney disease, without long-term current use of insulin (HCC) documented in this encounter Results * T4, FREE (03/15/2024 5:09 PM EDT) T4, Free 1.0 0.9 - 1.7 ng/dL 03/16/2024 5:27 AM EDT LAB[facility] [place] Blood Venous blood specimen / Unknown Venipuncture / Unknown 03/15/2024 5:09 PM EDT 03/15/2024 5:10 PM EDT Florentin Calvo DO LAB BLOOD ORDERABLES LAB[facility]ATORY [facility] [place] [address] [place] [address] * (ABNORMAL) VITAMIN B12 (03/15/2024 5:09 PM EDT) Vitamin B12 1,698(H) 232 - 1,245 pg/mL 03/16/2024 5:38 AM EDT LAB[facility]ATORY [facility] Blood Venous blood specimen / Unknown Venipuncture / Unknown 03/15/2024 5:09 PM EDT 03/15/2024 5:10 PM EDT Florentin Calvo DO LAB BLOOD ORDERABLES Performing Organization Address [facility] Co de Phone Number LABORATORY [facility] [address] [place] [address] * FOLIC ACID (03/15/2024 5:09 PM EDT) Folic Acid >20.0 >4.5 ng/mL 03/16/2024 5:38 AM EDT [facility] Blood Venous blood specimen / Unknown Venipuncture / Unknown 03/15/2024 5:09 PM EDT 03/15/2024 5:10 PM EDT Florentin Calvo DO LAB BLOOD ORDERABLES Performing Organization Address [facility] Co de Phone Number LABORATORY [facility] [address] [place] [address] * (ABNORMAL) TSH (03/15/2024 5:09 PM EDT) TSH 23.80(H) 0.27 - 4.20 uIU/mL 03/16/2024 5:38 AM EDT LAB[facility]ATORY [facility] Blood Venous blood specimen / Unknown Venipuncture / Unknown 03/15/2024 5:09 PM EDT 03/15/2024 5:10 PM EDT Florentin Calvo DO LAB BLOOD ORDERABLES Performing Organization Address City/[facility] Co de Phone Number LABORATORY [facility] [address] [place] [address] * (ABNORMAL) FERRITIN (03/15/2024 5:09 PM EDT) Ferritin 575(H) 13 - 150 ng/mL 03/16/2024 5:38 AM EDT LAB[facility]ATORY [facility] Comment:Postmenopausal women have higher ferritin levels than pre-menopausal women. The above reference interval is based on pre-menopausal women. Blood Venous blood specimen / Unknown Venipuncture / Unknown 03/15/2024 5:09 PM EDT 03/15/2024 5:10 PM EDT Florentin Calvo DO LAB BLOOD ORDERABLES Performing Organization Address [facility] Co de Phone Number LABORATORY [facility] [address] [place] [address] * IRON SCREEN, INCLUDING TIBC (03/15/2024 5:09 PM EDT) Pathologist [facility] Iron 46 33 - 151 ug/dL 03/16/2024 2:24 AM EDT LABORATORY [facility] Iron Binding Capacity 280 250 - 425 ug/dL 03/16/2024 2:24 AM EDT LABORATORY C Transferrin Saturation Percent 16 15 - 55 % 03/16/2024 2:24 AM EDT LAB[facility]ATORY [facility] Blood Venous blood specimen / Unknown Venipuncture / Unknown 03/15/2024 5:09 PM EDT 03/15/2024 5:10 PM EDT Florentin Calvo DO LAB BLOOD ORDERABLES Performing Organization Address City/[facility]/ZIP Co de Phone Number LABORATORY [facility] [address] [place] [address] * RETICULOCYTE PANEL (03/15/2024 5:09 PM EDT) Pathologist [facility] Reticulocyte Percent 1.74 0.80 - 1.90 % 03/16/2024 12:13 AM EDT LABORATORY [facility] Absolute Reticulocyte 62.3 31.3 - 100.1 K/uL 03/16/2024 12:13 AM EDT LABORATORY [facility] Immature Reticuloctye Fraction 17.5 2.5 - 20.6 % 03/16/2024 12:13 AM EDT LAB[facility]ORY [facility] Reticulocyte Hemoglobin 32.6 29.7 - 37.4 pg 03/16/2024 12:13 AM EDT LAB[facility] Blood Venous blood specimen / Unknown Venipuncture / Unknown 03/15/2024 5:09 PM EDT 03/15/2024 5:10 PM EDT Florentin Hernandez Umesh LAB BLOOD ORDERABLES Performing Organization Address [facility] Co de Phone Number LAB[facility]ATORY [facility] [address] [place] [address] * ANEMIA REFLEX CHEMISTRY HOLD (03/15/2024 5:09 PM EDT) Blood Venous blood specimen / Unknown Venipuncture / Unknown 03/15/2024 5:09 PM EDT 03/15/2024 5:10 PM EDT Florentin Calvo LAB BLOOD ORDERABLES Performing Organization Address [facility] Co de Phone Number LAB[facility]ORY [facility] [address] [place] [address] * (ABNORMAL) DIFFERENTIAL, AUTOMATED (03/15/2024 5:09 PM EDT) WBC 8.58 4.00 - 10.80 K/uL 03/15/2024 11:52 PM EDT [facility] Neutrophils % 71.5 40.0 - 75.0 % 03/15/2024 11:52 PM EDT [facility] Lymphocytes % 13.2(L) 18.0 - 42.0 % 03/15/2024 11:52 PM EDT [facility] Monocytes % 8.3 1.0 - 11.0 % 03/15/2024 11:52 PM EDT [facility] Eosinophils % 5.6 0.0 - 6.0 % 03/15/2024 11:52 PM EDT [facility] Basophils % 0.6 0.0 - 2.0 % 03/15/2024 11:52 PM EDT [facility] Immature Granulocytes % 0.8 0.0 - 2.0 % 03/15/2024 11:52 PM EDT [facility] Absolute Neutrophils 6.14 1.80 - 7.70 K/uL 03/15/2024 11:52 PM EDT LAB[facility] Absolute Lymphocytes 1.13 1.00 - 4.80 K/ul 03/15/2024 11:52 PM EDT [facility] Absolute Monocytes 0.71 0.00 - 1.10 K/uL 03/15/2024 11:52 PM EDT LAB[facility] Absolute Eosinophils 0.48 0.00 - 0.70 K/uL 03/15/2024 11:52 PM EDT [facility] Absolute Basophils 0.05 0.00 - 0.20 K/uL 03/15/2024 11:52 PM EDT LAB[facility] Absolute Immature Granulocytes 0.07 0.00 - 0.20 K/uL 03/15/2024 11:52 PM EDT [facility] Blood Venous blood specimen / Unknown Venipuncture / Unknown 03/15/2024 5:09 PM EDT 03/15/2024 5:10 PM EDT Florentin Calvo DO LAB BLOOD ORDERABLES [facility] [address] [place] [address] * (ABNORMAL) ANEMIA CBC (03/15/2024 5:09 PM EDT) WBC 8.58 4.00 - 10.80 K/uL 03/15/2024 11:52 PM EDT [facility] RBC 3.67 3.85 - 5.15 M/uL 03/15/2024 11:52 PM EDT [facility] HGB 11.1(L) 12.0 - 15.3 g/dL 03/15/2024 11:52 PM EDT LAB[facility] Comment: Anemia reflex testing triggers on a HGB < 12.0 for Females and HGB < 13.0 for Males in accordance with the WHO Anemia Guidelines Anemia reflex testing triggers on a HGB < 12.0 for Females and HGB < 13.0 for Males in accordance with the WHO Anemia Guidelines HCT 36.2 36.0 - 45.2 % 03/15/2024 11:52 PM EDT LAB[facility] MCV 98.6 81.5 - 97.5 fL 03/15/2024 11:52 PM EDT LAB[facility]ATORY [facility] MCH 30.2 27.0 - 34.0 pg 03/15/2024 11:52 PM EDT LABORATORY [facility] MCHC 30.7 32.0 - 36.0 g/dL 03/15/2024 11:52 PM EDT LABORATORY [facility] RDW 16.7 11.5 - 15.5 % 03/15/2024 11:52 PM EDT LAB[facility]ATORY [facility] PLT 241 140 - 400 K/uL 03/15/2024 11:52 PM EDT LAB[facility]ATORY [facility] MPV 11.7 6.6 - 11.1 fL 03/15/2024 11:52 PM EDT LAB[facility]ATORY [facility] nRBCs 0 <=0 /100 WBCs 03/15/2024 11:52 PM EDT LAB[facility]ORY [facility] Blood Venous blood specimen / Unknown Venipuncture / Unknown 03/15/2024 5:09 PM EDT 03/15/2024 5:10 PM EDT Florentin Calvo DO LAB BLOOD ORDERABLES Performing Organization Address City/[facility] Co de Phone Number LABORATORY [facility] [address] [place] [address] * (ABNORMAL) TSH WITH FREE T4 IF INDICATED (03/15/2024 5:09 PM EDT) TSH 24.80(H) 0.27 - 4.20 uIU/mL 03/16/2024 3:31 AM EDT LAB[facility]ATORY [facility] Blood Venous blood specimen / Unknown Venipuncture / Unknown 03/15/2024 5:09 PM EDT 03/15/2024 5:10 PM EDT Florentin Calvo DO LAB BLOOD ORDERABLES Performing Organization Address City/[facility] Co de Phone Number LAB[facility]ATORY [facility] [address] [place] [address] * (ABNORMAL) COMPREHENSIVE METABOLIC PANEL (03/15/2024 5:09 PM EDT) BUN 50(H) 6 - 20 mg/dL 03/16/2024 3:04 AM EDT [facility] Creatinine 2.3(H) 0.5 - 1.0 mg/dL 03/16/2024 3:04 AM EDT [facility] Estimated Glomerular Filtration Rate 20(L) >=60 mL/min 03/16/2024 3:04 AM EDT LAB[facility] Comment:eGFR is calculated b ased on the CKD-EPI 2020 equation. Sodium 138 135 - 146 mmol/L 03/16/2024 3:04 AM EDT [facility] Potassium 4.0 3.5 - 5.1 mmol/L 03/16/2024 3:04 AM EDT [facility] Chloride 100 98 - 107 mmol/L 03/16/2024 3:04 AM EDT [facility] CO2 24 22 - 32 mmol/L 03/16/2024 3:04 AM EDT [facility] Anion Gap 14 7 - 15 mmol/L 03/16/2024 3:04 AM EDT [facility] Glucose 150(H) 70 - 120 mg/dL 03/16/2024 3:04 AM EDT [facility] Albumin 4.0 3.8 - 5.0 g/dL 03/16/2024 3:04 AM EDT [facility] AST 40(H) 10 - 35 U/L 03/16/2024 3:04 AM EDT [facility] Alkaline Phosphatase 247(H) 35 - 130 U/L 03/16/2024 3:04 AM EDT [facility] Bilirubin, Total 0.2 <=1.2 mg/dL 03/16/2024 3:04 AM EDT [facility] Calcium 9.3 8.4 - 10.2 mg/dL 03/16/2024 3:04 AM EDT [facility] Protein 6.5 6.0 - 8.3 g/dL 03/16/2024 3:04 AM EDT [facility] ALT 20 10 - 35 U/L 03/16/2024 3:04 AM EDT LABORATORY C Blood Venous blood specimen / Unknown Venipuncture / Unknown 03/15/2024 5:09 PM EDT 03/15/2024 5:10 PM EDT Florentin Calvo DO LAB BLOOD ORDERABLES [facility] [address] [place] [address] documented in this encounter Visit Diagnoses Diagnosis Compression fracture of T12 vertebra, initial encounter (HCC)- Primary Paroxysmal atrial fibrillation (HCC) Atrial fibrillation Type 2 diabetes mellitus with stage 3b chronic kidney disease, without long-term current use of insulin (HCC) Secondary hyperparathyroidism, renal (HCC) Secondary hyperparathyroidism (of renal origin) 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 claudication Spinal stenosis, lumbar region, without neurogenic claudication Acquired hypothyroidism Unspecified hypothyroidism Obstructive sleep apnea of adult Obstructive sleep apnea (adult) (pediatric) Angiodysplasia of colon with hemorrhage Angiodysplasia of intestine with hemorrhage Current moderate episode of major depressive disorder without prior episode (HCC) Moderate persistent asthma without complication Unspecified asthma History of TIA (transient ischemic attack) Transient ischemic attack (TIA), and cerebral infarction without residual deficits Atherosclerosis of [place] coronary artery of [place] heart without angina pectoris S/P mitral valve clip implantation Presence of Watchman left atrial appendage closure device Nocturnal hypoxemia Hypoxemia Constipation, unspecified constipation type Severe tricuspid regurgitation Diseases of tricuspid valve Diarrhea, unspecified type History of diverticulitis documented in this encounter Advance Directives Documents on File Type Date Recorded 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 No * No Code Date Activated Date [...] Name Relationship Healthcare Agent Relationshi p Communication [facility] Adult Child Health Care Agen t (per Health Care Power of Groundskeeping Yardman document) Care Teams Director Of Creative Services Relationship Specialty Start Date End Date Florentin Calvo DO [address] [place] [address] PCP - General Internal Medicine 02/06/24 documented as of this encounter
--- OUTSIDE RECORDS SUMMARY | 2024-03-21 00:58 | External Medical Summary | Summary of Care ---
Author Name Unknown Organization [facility] Address [address] [place] [address] Phone [phone] Care Team Providers Care Deputy Sheriff Generalist Name Role Phone Grey Calvo DO Primary Care Provider [phone] Reason for Visit * Reason Onset Date Comments Medication Question 03/16/2024 Encounter Details Date Type Department Care Team (Late st Contact Info) Description 03/16/2024 Telephone [address] [facility] [address] [place] [address] Grey aClvo DO [address] [place] [address] Medication Question Allergies Active Allergy Reactions Criticality Noted Date [...] Dispensed Refills Start Date End Date Status Compare And Share w/Device KitIndications:Type 2 diabetes mellitus with hemoglobin [...] Wheezing. 15 g 12 06/13/2022 Active OneTouch [employer] In Vitro Strip (Glucose Blood) Test blood sugars up to 2 times a day E11.9 200 Strip 3 12/20/2022 Active Atorvastatin Calcium 20 MG Oral Tablet (Lipitor)Indication s:PVD (peripheral vascular disease) ([facility] [...] BEDTIME 100 Tablet 3 09/02/2023 5 Active Sertraline HCl 100 MG Oral Tablet (Zoloft) Take one and one-half Tablets by mouth in the morning. 150 Tablet 3 10/11/2023 Active Cetirizine HCl 10 MG Oral Tablet (ZyrTEC) Take 1 Tablet by mouth in the morning. 10/22/2023 Active Levothyroxine Sodium 150 MCG Oral Tablet (Levoxyl)Indication s:Acquired hypothyroidism Take 1 Tablet by mouth daily first thing in the morning. 100 Tablet 3 10/24/2023 Active Metoprolol Succinate ER 25 MG Oral [...] (Demadex)Indication s:Chronic diastolic CHF (congestive heart failure) ([facility]) Take 2 Tablets by mouth in the morning. 200 Tablet 3 02/24/2024 Active Apixaban 2.5 MG Oral Tablet (Eliquis)Indication s:Paroxysmal atrial fibrillation ([facility]) Take 1 Tablet by mouth in the morning and 1 Tablet before bedtime. 60 Tablet 2 03/09/2024 Active oxyCODONE HCl 5 MG Oral Tablet (Oxy IR)Indications:[facility] ed fracture of multiple ribs of left side with routine healing, subsequent encounter Take 1 Tablet by mouth every 6 hours as needed for Pain, Moderate. 30 Tablet 03/12/2024 Active Polyethylene Glycol 3350 17 GM/SCOOP Oral Powder (MiraLax) Take 17 g by mouth in the morning and 17 g before bedtime. Dissolve one heaping tablespoon in 8 ounces of water or juice.. 03/12/2024 Active Naloxone HCl 4 MG/0.1ML NA LIQD FOR CAREGIVERIndication s:Compression fracture of T12 vertebra, initial encounter ([facility]) Administer 1 spray into 1 nostril for suspected opioid overdose. Seek immediate medical attention. [email or web address]://[email or web address] [email or web address].com/[email or web address]? [email or web address] 1 Each 3 03/16/2024 4 Active fentaNYL 12 MCG/HR Transdermal Patch 72 HourIndications:Com pression fracture of T12 vertebra, initial encounter ([facility]) Place 1 Patch over 72 hours topically on the skin every 3 days. For pain control. 10 Patch 03/16/2024 Active fentaNYL 12 MCG/HR Transdermal Patch 72 HourIndications:Com pression fracture of T12 vertebra, initial encounter ([facility]) Place 1 Patch over 72 hours topically on the skin every 3 days. For pain control. 10 Patch 03/15/2024 4 Discontinue d(Transferr ed) documented as of this encounter (statuses as of 03/17/2024) Active Problems Problem Noted Date Diagnosed Date Compression fracture of T12 vertebra 03/12/2024 Last Assessment & Plan: Increased oxy from 2.5mg to 5mg [id number] prn Ortho spine ref, ?kyphoplasty Constipation 03/12/2024 [...] mitral valve clip implantation 03/06/2023 Atherosclerosis of 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 02/13/2023 Last Assessment & Plan: Continue statin, sotalol. ASA History of TIA (transient ischemic attack) 11/29 Last Assessment & Plan: -Recent admission to [facility], presented with numbness of tongue and [...] Obstructive sleep apnea of adult 09/09/2014 Overview: V BELT CURER Last Assessment & Plan: Now just using [...] MCG/0.3 mL, 12 YRS AND ABOVE, IM [facility] 06/09/2023 Covid-19, Mrna, Lnp-s, Pf, B ivalent, 30 Mcg, IM, 12 yrs and above ([employer]) 09/10/2022 HEP A - Hepatitis A (Adult [...] or do you have serious difficulty hearing? No[place] can hear w/ hearing aid 03/07/2023 [...] encounter Miscellaneous Notes * Addendum Note - Herminia Batista RPh - 03/17/2024 1:39 PM EDT Addended by: HERMINIA BATISTA on: 03/17/2024 01:39 PM Modules accepted: Orders * Telephone Encounter - Herminia Batista RPh - 03/17/2024 1:38 PM EDT Controlled scripts must be signed by PCP, pended script * Telephone Encounter - Hilda Awad LPN - 03/17/2024 1:35 PM EDT Unable to change oxycodone to 0.5 tablet without sending a new script Can you help with this please? * Telephone Encounter - Grey Calvo DO - 03/17/2024 1:09 PM EDT The oxycodone can be taken 1/2 tablet four times a day as needed for breakthrough pain. * Telephone Encounter - Hilda Awad LPN - 03/17/2024 12:33 PM EDT Son questions increasing problems with constipation and duragesic patch. Anything patient should be doing differently? Advised to continue plan and ok to use patch. Should patient use oxy at all? Thank you * Telephone Encounter - Grace Jeffries OSA - 03/17/2024 11:58 AM EDT Awaiting a return call about meds * Telephone Encounter - Grace Jeffries OSA - 03/16/2024 4:08 PM EDT Would like to speak to someone about the duragesic patch Doesn't want to use til he speaks with someone. Please call * Telephone Encounter - Grace Jeffries OSA - 03/16/2024 2:36 PM EDT Wants to speak to hilda before using duragesic patch Call Bright [phone] * Addendum Note - Grey Calvo DO - 03/16/2024 1:21 PM EDTAddended by: GREY CALVO on: 03/16/2024 01:21 PM Modules accepted: Orders * Addendum Note - Herminia Batista formerly [facility] - 03/16/2024 12:44 PM EDT Addended by: HERMINIA BATISTA on: 03/16/2024 12:44 PM Modules accepted: Orders * Telephone Encounter - Herminia Batista RP - 03/16/2024 12:43 PM EDT Pharmacist called back - their Fentanyl is , but [facility] has it. Need to send a new script over there. Pended to PCP. Herminia Patel, Nelson Choudhary, [facility] Clinical Pharmacist [address] [facility] 03/16/2024, 12:44 PM Ph. [phone] * Telephone Encounter - Herminia Batista RP - 03/16/2024 11:34 AM EDT Spoke to pharmacistJose, at [facility] and communicated recent oxycodone dose and PCP confirmation of fentanyl. Nelson Calloway, BCACP Clinical Pharmacist [address] [facility] 03/16/2024, 11:34 AM Ph. [phone] * Telephone Encounter - Grey Calvo DO - 03/16/2024 11:17 AM EDT Fentanyl patch 12.5 mcg dose is OK Patient unable to get out of bed due to severe back pain from vertebral fracture. Naloxone sent to pharmacy. * Telephone Encounter - Herminia Batista, formerly [facility] - 03/16/2024 11:10 AM EDT Spoke to patient's son - patient has been taking 5mg of oxycodone 4 times a day until seeing Dr. Calvo (30 mme/day) and now taking 2.5mg oxycodone 4 times a day but its not doing anything. Serum creatinine: 2.3 mg/dL (H) 03/15/24 1709 Estimated creatinine clearance: 18.5 mL/min (A) Fentanyl 12.5 mg patch/72 hours is also 30 mme/day, but with CrCl dose should be reduced by 75%. Spoke to patient son about also getting Naloxone just in case. Explained use. Son is concerned, butagreeable. Pended to PCP to okay the fentanyl dose and sign the naloxone. * Telephone Encounter - Stephanie Chambers OSA - 03/16/2024 10:57 AM EDT Jose called back. She is at the pharmacy now. * Telephone Encounter - Stephanie Chambers OSA - 03/16/2024 10:47 AM EDT Jose from [facility] in [facility] left a voicemail in regards to the Fentanyl prescription that they received. He needs to know if patient has taken any other opiods. He didn't see it on the PDMP. Please call him back. Thanks. documented in this encounter Plan of Treatment Upcoming Encounters Date Type Department Care Team (Late st Contact Info) Description 03/18/2024 3:30 PM EDT Telemedicine Neurosurgery, [place] [address] [place] [address] Massimo Key MD [address] [place] [address] 03/24/2024 10:00 AM EDT Scheduled Telephone [facility] [address] [facility] [place] [address] Coordinator, [facility] [address] [facility] [place] [address] 03/25/2024 8:30 AM EDT Office Visit Hematology/Oncolog y [facility] [address] [place] [address] Nereyda Metz CRNP [address] [place] [address] 03/30/2024 11:20 AM EDT Office Visit Family Practice [address], [place] [address] [place] [address] Grey Calvo, [address] [place] [address] 04/01/2024 11:00 AM EDT Home Visit [facility] [address] [facility] [place] [address] Michelle Hurt, RN 132 [facility] [place] [address] 04/05/2024 11:00 AM EDT Imaging Vascular Lab, [address] [place] [address] 04/14/2024 10:50 AM EDT Office Visit Vascular Surgery, [facility] [address] [facility] [place] [address] Aj Sahni MD [address] [place] [address] 04/20/2024 3:40 PM EDT Office Visit Family Practice [address], [place] [address] [place] [address] Grey Calvo, DO [address] [facility] [place] [address] 05/21/2024 1:14 PM EDT Hospital Encounter OR [facility], Operating Room, [facility] - 4th Floor [address] [place] [address] Jana Vieira, DO 132 [facility] [place] [address] 05/21/2024 1:14 PM EDT - 05/21/2024 1:59 PM EDT Surgery OR [facility], Operating Room, [facility] - 4th Floor [address] [facility] [place] [address] Jana Vieira, DO [address] [facility] [place] [address] COLONOSCOPY FLEXIBLE PROXIMAL DIAGNOSTIC 06/03/2024 2:15 PM EDT Office Visit Ophthalmology, [facility] [address] [facility] [place] [address] Wilbur Benavides, DO [address] [facility] [place] [address] 07/01/2024 2:30 PM EST Office Visit Gastroenterology, [facility] [address] [facility] [place] [address] Lacy Ronquillo CRNP [address] [place] [address] 08/09/2024 1:00 PM EST Nurse Only Ancillary [address], [place] [address] [place] [address] College, Nurse Annual Wellness Visit [address] [facility] [address] [place] [address] Scheduled Procedures Name Priority Associated Diagnoses Date/Ti [...] COPD 07/31/2024 07/31/2023 CKD PHOS USE SMARTSET 04645 08/19/202407/26, 05/01/2022, 04/03/2022, Additional history exists Diabetic Foot Exam 09/15/2024 09/15/2023, 0 10/01/2022, 10/26/2021, Additional history exists GFR 09/15/2024 03/15/2024, 07/0 04/2024, 02/24/2024, Additional history exists Depression Monitoring 09/29/2024 09/29/2023 Albumin/Creatinine Ratio 12/08/2024 024, 02/21/2023, 05/01/2022, Additional history exists CKD HGB USE SMARTSET 21360 03/15/202503/15, 03/15/2024, 03/02/2024, Additional history exists TSH [...] this encounter Medical Devices Implanted Type Area Auto Carrier Driver Device Identifier Shelf Expiration Date Model / Serial / Lot Cath Thermodilution 6fr - [id number] Implanted:Qty: 1 on 01/24/2023 by Wilbur Rivera MD at [facility] [place] [employer] [id number] 10/15/2024 [id number] / / [id number] Clip Delivery Sytem G4 Xt - [id number] Implanted:Qty: 1 on 03/10/2023 at [facility] [place] [employer] [id number] 04/15/2023 [id number] T / / [id number] Clip Delivery Sytem G4 Xtw - [id number] Implanted:Qty: 1 on 03/10/2023 at [facility] [place] [employer] [id number] 12/06/2023 [id number] TW / / [id number] Mirtac[employer] G4 - [id number] Implanted:Qty: 1 on 03/10/2023 at [facility] [place] [employer] 11/19/2023 [id number] / / [id number] Device Watchman Flx 31mm - [id number] Implanted:Qty: 1 on 07/31/2023 by Wilbur Rivera MD at [facility] [place] [employer] : INTRV CARD [id number] 12/02/2025 [id number] documented as of this encounter Visit Diagnoses Diagnosis Compression fracture of T12 vertebra, initial encounter ([facility])- Primary Closed fracture of multiple ribs of left side with routine healing, subsequent encounter Diarrhea, unspecified type History of diverticulitis documented in this encounter Advance Directives Documents on File Type Date Recorded 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 No * No Code Date Activated Date [...] Name Relationship Healthcare Agent Relationshi p Communication Brgiht Yuval Adult Child Health Care Agen t (per Health Care Power of Real Estate Professor document) Care Teams Deputy Sheriff Generalist Relationship Specialty Start Date End Date Grey Calvo DO [address] [place] [address] PCP - General Internal Medicine 02/06/24 documented as of this encounter
--- OUTSIDE RECORDS SUMMARY | 2024-03-21 00:58 | External Medical Summary | Summary of Care ---
Author Name Unknown Organization [facility] Address [address] [place] [address] Phone [phone] Care Team Providers Care Dough Maker Name Role Phone Grey Calvo DO Primary Care Provider [phone] Reason for Visit * Reason Onset Date Comments Medication Question 03/16/2024 Encounter Details Date Type Department Care Team (Late st Contact Info) Description 03/16/2024 Telephone Family Practice 65 [facility] [address] [place] [address] Grey Calvo DO [address] [place] [address] Medication Question Allergies Active Allergy Reactions Criticality Noted Date Comments Azithromycin Other (Please comment) 12/04/2021 QTC prolongation at [facility] Celecoxib Hives,Rash High 03/24/2013 Other reaction(s): [...] Dispensed Refills Start Date End Date Status Doculogy w/Device KitIndications:Type 2 diabetes mellitus with hemoglobin [...] Wheezing. 15 g 12 06/13/2022 Active OneTouch [employer] In Vitro Strip (Glucose Blood) Test blood [...] DIRECTED 100 Tablet 3 03/31/2023 Active Ipratropium [place] 0.03 % Nasal Solution (Atrovent)Indicatio ns:Chronic rhinitis Administer 2 Sprays into nostril in the morning and 2 Sprays before bedtime. 90 mL 3 04/01/2023 Active Allopurinol 300 MG Oral Tablet (Zyloprim) Take 1 Tablet by mouth at bedtime. 90 Tablet 3 05/16/2023 Active Tiotropium [place]-Olodaterol 2.5-2.5 MCG/ACT Inhalation Aerosol Solution (Stiolto Respimat) [...] fracture of T12 vertebra, initial encounter ([facility]) Administer 1 spray into 1 nostril for suspected opioid overdose. Seek immediate medical attention. [email or web address]? [email or web address] 1 Each 3 03/16/2024 4 Active fentaNYL 12 MCG/HR Transdermal Patch 72 HourIndications:Com pression fracture of T12 vertebra, initial encounter ([facility]) Place 1 Patch over 72 hours topically on the skin every 3 days. For pain control. 10 Patch 03/16/2024 Active oxyCODONE HCl 5 MG Oral Tablet (Oxy IR)Indications:Clos ed fracture of multiple ribs of left side with routine healing, subsequent encounter Take 0.5 Tablets by mouth every 6 hours as needed for Pain, Breakthrough. 30 Tablet 03/17/2024 Active oxyCODONE HCl 5 MG Oral Tablet (Oxy IR)Indications:Clos ed fracture of multiple ribs of left side with routine healing, subsequent encounter Take 1 Tablet by mouth every 6 hours as needed for Pain, Moderate. 30 Tablet 03/12/2024 4 Discontinue d(Refill) fentaNYL 12 MCG/HR Transdermal Patch 72 HourIndications:Com pression fracture of T12 vertebra, initial encounter ([facility]) Place 1 Patch over 72 hours topically on the skin every 3 days. For pain control. 10 Patch 03/15/2024 4 Discontinue d(Transferr ed) documented as of this encounter (statuses as of 03/17/2024) Active Problems Problem Noted Date Diagnosed Date Compression fracture of T12 vertebra 03/12/2024 Last Assessment & Plan: Increased oxy from 2.5mg to 5mg [id number] prn Ortho spine ref, ?kyphoplasty Constipation 03/12/2024 [...] mitral valve clip implantation 03/06/2023 Atherosclerosis of [place] 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 02/13/2023 Last Assessment & Plan: Continue statin, sotalol. 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 & Plan: Now just [...] MCG/0.3 mL, 12 YRS AND ABOVE, IM (Imagiin.-Comirnaty) 06/09/2023 Covid-19, Mrna, Lnp-s, Pf, B ivalent, 30 Mcg, IM, 12 yrs and above ([employer]) 09/10/2022 HEP A - Hepatitis A (Adult [...] encounter Miscellaneous Notes * Addendum Note - Grey Calvo DO - 03/17/2024 1:48 PM EDTAddended by: GREY CALVO on: 03/17/2024 01:48 PM Modules accepted: Orders * Telephone Encounter - Grey Calvo DO - 03/17/2024 1:47 PM EDT I have reviewed the patients controlled substance dispensing history in the Prescription Drug Monitoring Program in compliance with the [facility] regulations before prescribing a controlled substance. Last Tox Screen Results: No results found. However, due to the size of the patient record, not all encounters were searched.Please check Results Review for a complete set of results. * Addendum Note - Herminia Batista [facility] - 03/17/2024 1:39 PM EDT Addended by: HERMINIA BATISTA on: 03/17/2024 01:39 PM Modules accepted: Orders * Telephone Encounter - Herminia Batista [facility] - 03/17/2024 1:38 PM EDT Controlled scripts [...] to hilda before using duragesic patch Call [facility] [phone] * Addendum Note - Grey Calvo DO - 03/16/2024 1:21 PM EDTAddended by: GREY CALVO on: 03/16/2024 01:21 PM Modules accepted: Orders * Addendum Note - Herminia Batista RPh - 03/16/2024 12:44 PM EDT Addended by: HERMINIA BATISTA on: 03/16/2024 12:44 PM Modules accepted: Orders * Telephone Encounter - Herminia Batista RPh - 03/16/2024 12:43 PM EDT Pharmacist called back - their Fentanyl is , but [facility] it. Need to send a new script over there. Pended to PCP. Nelson Calloway, [facility] [address] - [facility] 03/16/2024, 12:44 PM Ph. [phone] * Telephone Encounter - Herminia Batista [facility] - 03/16/2024 11:34 AM EDT Spoke to pharmacistJose, at [facility] and communicated recent oxycodone dose and PCP confirmation of fentanyl. Nelson Calloway, [facility] Clinical Pharmacist [address] - Medication Therapy [facility] 03/16/2024, 11:34 AM Ph. [phone] * Telephone Encounter - Grey Calvo DO - 03/16/2024 11:17 AM EDT Fentanyl patch 12.5 mcg dose is OK Patient unable to get out of bed due to severe back pain from vertebral fracture. Naloxone sent to pharmacy. * Telephone Encounter - Herminia Batista [facility] - 03/16/2024 11:10 AM EDT Spoke to [...] - 03/16/2024 10:47 AM EDT Jose from [facility] in [facility] left a voicemail in regards to the Fentanyl prescription that they received. He needs to know if patient has taken any other opiods. He didn't see it on the PDMP. Please call him back. Thanks. documented in this encounter Plan of Treatment Upcoming Encounters Date Type Department Care Team (Late st Contact Info) Description 03/18/2024 3:30 PM EDT Telemedicine Neurosurgery, [place] [address] [place] [address] Massimo Key MD [address] [place] [address] 03/24/2024 10:00 AM EDT Scheduled Telephone [facility], [facility] [address] [place] [address] Coordinator, [facility] [address] [place] [address] 03/25/2024 8:30 AM EDT Office Visit Hematology/Oncolog y [facility] [address] [place], [place] [address] Nereyda Metz CRNP [address] [facility] [place] [address] 03/30/2024 11:20 AM EDT Office Visit Family [address] 293 [place] [address] Grey Calvo, DO 293 [facility], [place] [address] 04/01/2024 11:00 AM EDT Home Visit [facility] 132 [place] [address] Michelle Hurt RN 132 [place] [address] 04/05/2024 11:00 AM EDT Imaging Vascular Lab, [facility] 2nd [facility] 132 [place] [address] 04/14/2024 10:50 AM EDT Office Visit Vascular Surgery, [facility] 132 [place] [address] Aj Sahni MD [address] [place] [address] 04/20/2024 3:40 PM EDT Office Visit Family Practice [address] [place] [address] 293 [facility], [place] [address] Grey Cavlo, DO 293 [facility], [place] [address] 05/21/2024 1:14 PM EDT Hospital Encounter OR [facility], [facility], [facility] [address] Jana Vieira, DO 132 [facility] [place] [address] 05/21/2024 1:14 PM EDT - 05/21/2024 1:59 PM EDT Surgery OR [facility], Operating Room, [facility] - 4th Floor [address] [facility] [place] [address] Jana Vieira, DO [facility] [place] [address] COLONOSCOPY FLEXIBLE PROXIMAL DIAGNOSTIC 06/03/2024 2:15 PM EDT Office Visit Ophthalmology, [facility] 132 [facility] [place] [address] Wilbur Benavides, DO [facility] [place] [address] 07/01/2024 2:30 PM EST Office Visit Gastroenterology, [facility] 132 [facility] [place] [address] Lacy Ronquillo CRNP 132 [facility] [place] [address] 08/09/2024 1:00 PM EST Nurse Only Ancillary 65 [facility] 293 [place] [address] College, Nurse Annual Wellness Visit [address] [place] [address] Scheduled Procedures Name Priority Associated Diagnoses Date/Ti [...] COPD 07/31/2024 07/31/2023 CKD PHOS USE SMARTSET 77650 08/19/202407/26, 05/01/2022, 04/03/2022, Additional history exists Diabetic Foot Exam 09/15/2024 09/15/2023, 0 10/01/2022, 10/26/2021, Additional history exists GFR 09/15/2024 03/15/2024, 07/0 04/2024, 02/24/2024, Additional history exists Depression Monitoring 09/29/2024 09/29/2023 Albumin/Creatinine Ratio 12/08/2024 024, 02/21/2023, 05/01/2022, Additional history exists CKD HGB USE SMARTSET 58832 03/15/202503/15, 03/15/2024, 03/02/2024, Additional history exists TSH [...] encounter Medical Devices Implanted Type Area Senior Wind Turbine Technician Device Identifier Shelf Expiration Date Model / Serial / Lot Cath Thermodilution 6fr - [id number] Implanted:Qty: 1 on 01/24/2023 by Wilbur Rivera MD at [facility] [employer] [employer] [id number] 10/15/2024 [id number] / / [id number] Clip Delivery Sytem G4 Xt - [id number] Implanted:Qty: 1 on 03/10/2023 at [facility] [employer] [id number] 04/15/2023 [id number] / / [id number] Clip Delivery Sytem G4 Xtw - [id number] Implanted:Qty: 1 on 03/10/2023 at [facility] [employer] [id number] 12/06/2023 [id number] / / [id number] Mirtaclip G4 - [id number] Implanted:Qty: 1 on 03/10/2023 at [facility] [employer] 11/19/2023 [id number] / / [id number] Device Watchman Flx 31mm - [id number] Implanted:Qty: 1 on 07/31/2023 by Wilbur Rivera MD at [facility] [employer] : INTRV CARD [id number] 12/02/2025 [id number] documented as of this encounter Visit Diagnoses Diagnosis Compression fracture of T12 vertebra, initial encounter (HCC)- Primary Closed fracture of multiple ribs of left side with routine healing, subsequent encounter Diarrhea, unspecified type History of diverticulitis documented in this encounter Advance Directives Documents on File Type Date 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 No * No Code Date Activated Date [...] Agen t (per Health Care Power of Public Health document) Care Teams Dough Maker Relationship Specialty Start Date End Date Grey Calvo DO [address] [place] [address] PCP - General Internal Medicine 02/06/24 documented as of this encounter
--- OUTSIDE RECORDS SUMMARY | 2024-03-21 00:58 | External Medical Summary | Summary of Care ---
Author Name Unknown Organization [facility] Address [address] [place] [address] Phone [phone] Care Team Providers Care Chief Physical Therapist Name Role Phone Grey Calvo DO Primary Care Provider [phone] Reason for Visit * Reason Onset Date Comments Medication Question 03/16/2024 Encounter Details Date Type Department Care Team (Late st Contact Info) Description 03/16/2024 Telephone Family Practice 65 [facility] [address] [place] [address] Grey Calvo DO [address] [place] [address] Medication Question Allergies Active Allergy [...] Dispensed Refills Start Date End Date Status [place] w/Device KitIndications:Type 2 diabetes mellitus with hemoglobin [...] Wheezing. 15 g 12 06/13/2022 Active OneTouch [employer] In Vitro Strip (Glucose Blood) Test blood sugars up to 2 times a day E11.9 200 Strip 3 12/20/2022 Active Atorvastatin Calcium 20 MG Oral Tablet (Lipitor)Indication s:PVD (peripheral vascular disease) ([facility]),Type 2 diabetes mellitus with stage 3a chronic kidney disease and hypertension ([facility]) TAKE ONE TABLET BY MOUTH EVERY DAY DIRECTED 100 Tablet 3 03/31/2023 Active Ipratropium [place] 0.03 % Nasal Solution (Atrovent)Indicatio ns:Chronic rhinitis Administer 2 Sprays into nostril in the morning and 2 Sprays before bedtime. 90 mL 3 04/01/2023 Active Allopurinol 300 MG Oral Tablet (Zyloprim) Take 1 Tablet by mouth at bedtime. 90 Tablet 3 05/16/2023 Active Tiotropium [place]-Olodaterol 2.5-2.5 MCG/ACT Inhalation Aerosol Solution (Stiolto Respimat) [...] (Demadex)Indication s:Chronic diastolic CHF (congestive heart failure) ([facility]) Take 2 Tablets by mouth in the morning. 200 Tablet 3 02/24/2024 Active Apixaban 2.5 MG Oral Tablet (Eliquis)Indication s:Paroxysmal atrial fibrillation ([facility]) Take 1 Tablet by mouth in the morning and 1 Tablet before bedtime. 60 Tablet 2 03/09/2024 Active oxyCODONE HCl 5 MG Oral Tablet (Oxy IR)Indications:[facility] ed fracture of multiple [...] s:Compression fracture of T12 vertebra, initial encounter ([facility]) Administer 1 spray into 1 nostril for suspected opioid overdose. Seek immediate medical attention. [email or web address]? [email or web address] 1 Each 3 03/16/2024 4 Active fentaNYL 12 MCG/HR Transdermal Patch 72 HourIndications:Com pression fracture of T12 vertebra, initial encounter ([facility]) Place 1 Patch over 72 hours topically on the skin every 3 days. For pain control. 10 Patch 03/16/2024 Active fentaNYL 12 MCG/HR Transdermal Patch 72 HourIndications:Com pression fracture of T12 vertebra, initial encounter ([facility]) Place 1 Patch over 72 hours topically on the skin every 3 days. For pain control. 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 No-[place] can hear w/ hearing aid 03/07/2023 Are [...] breakthrough pain. * Telephone Encounter - Hilda AwadSLIME - 03/17/2024 12:33 PM EDT Son questions [...] to hilda before using duragesic patch Call [facility] [phone] * Addendum Note - Grey Calvo DO - 03/16/2024 1:21 PM EDTAddended by: GREY CALVO on: 03/16/2024 01:21 PM Modules accepted: Orders * Addendum Note - Herminia Batista, [facility] - 03/16/2024 12:44 PM EDT Addended by: HERMINIA BATISTA on: 03/16/2024 12:44 PM Modules accepted: Orders * Telephone Encounter - Herminia Batista RP - 03/16/2024 12:43 PM EDT Pharmacist called back - their Fentanyl is , but [facility] has it. Need to send a new script over there. Pended to PCP. Herminia Patel, Pharm D, [facility]CP Clinical Pharmacist [address] - Medication Therapy [facility] 03/16/2024, 12:44 PM Ph. [phone] * Telephone Encounter - Herminia Batista [facility] - 03/16/2024 11:34 AM EDT Spoke to pharmacistJose, at [facility] and communicated recent oxycodone dose and PCP confirmation of fentanyl. Nelson Calloway, [facility] Clinical Pharmacist [address] - Medication Therapy [facility] 03/16/2024, 11:34 AM Ph. [phone] * Telephone Encounter - Grey Calvo DO - 03/16/2024 11:17 AM EDT Fentanyl patch 12.5 mcg dose is OK Patient unable to get out of bed due to severe back pain from vertebral fracture. Naloxone sent to pharmacy. * Telephone Encounter - Herminia Batista [facility] - 03/16/2024 11:10 AM EDT Spoke to [...] - 03/16/2024 10:47 AM EDT Jose from [facility] in [facility] left a voicemail in regards to the Fentanyl prescription that they received. He needs to know if patient has taken any other opiods. He didn't see it on the PDMP. Please call him back. Thanks. documented in this encounter Plan of Treatment Upcoming Encounters Date Type Department Care Team (Late st Contact Info) Description 03/18/2024 3:30 PM EDT Telemedicine Neurosurgery, [place] [address] [place] [facility] [place] [address] Massimo Key MD 100 [address] [facility] [place] [address] 03/24/2024 10:00 AM EDT Scheduled Telephone [facility] [place], [facility] [address] [place] [address] Coordinator, [facility] 132 [facility] [place] [address] 03/25/2024 8:30 AM EDT Office Visit Hematology/Oncolog y [facility] [address] [place] [address] Nereyda Metz CRNP 400 [facility] [place] [address] 03/30/2024 11:20 AM EDT Office Visit Family Practice [address] [place] [address] 293 [facility] [place] [address] Grey Calvo, 293 [place] [address] 04/01/2024 11:00 AM EDT Home Visit [facility] 132 [facility] [place] [address] Michelle Hurt RN 132 [facility] [place] [address] 04/05/2024 11:00 AM EDT Imaging Vascular Lab, [facility] 2nd [facility] 132 [facility] [place] [address] 04/14/2024 10:50 AM EDT Office Visit Vascular Surgery, [facility] 132 [facility] [place] [address] Aj Sahni MD [address] [place] [address] 04/20/2024 3:40 PM EDT Office Visit Family Practice [address] [place] [address] 293 [facility] [place] [address] Grey Calvo, 293 [place] [address] 05/21/2024 1:14 PM EDT Hospital Encounter OR [facility], Operating Room, [facility] - 4th Floor [address] [place] [address] Jana Vieira, DO [address] [place] [address] 05/21/2024 1:14 PM EDT - 05/21/2024 1:59 PM EDT Surgery OR [facility], Operating Room, [facility] - 4th Floor [address] [place] [address] Jana Vieira, DO [address] [place] [address] COLONOSCOPY FLEXIBLE PROXIMAL DIAGNOSTIC 06/03/2024 2:15 PM EDT Office Visit Ophthalmology, [facility] 132 [facility] [place] [address] Wilbur Benavides, DO [facility] [place] [address] 07/01/2024 2:30 PM EST Office Visit Gastroenterology, [facility] 132 [facility] [place] [address] Lacy Ronquillo CRNP 132 [facility] [place] [address] 08/09/2024 1:00 PM EST Nurse Only Ancillary 65 [facility] 293 [facility] [place] [address] College, Nurse Annual Wellness Visit 65 [facility] 293 [facility] [place] [address] Scheduled Procedures Name Priority Associated Diagnoses Date/Ti [...] COPD 07/31/2024 07/31/2023 CKD PHOS USE SMARTSET 29223 08/19/202407/26, 05/01/2022, 04/03/2022, Additional history exists Diabetic Foot Exam 09/15/2024 09/15/2023, 0 10/01/2022, 10/26/2021, Additional history exists GFR 09/15/2024 03/15/2024, 07/0 04/2024, 02/24/2024, Additional history exists Depression Monitoring 09/29/2024 09/29/2023 Albumin/Creatinine Ratio 12/08/2024 024, 02/21/2023, 05/01/2022, Additional history exists CKD HGB USE SMARTSET 78880 03/15/202503/15, 03/15/2024, 03/02/2024, Additional history exists TSH [...] this encounter Medical Devices Implanted Type Area Strap Making Machine Operator Device Identifier Shelf Expiration Date Model / Serial / Lot Cath Thermodilution 6fr - [id number] Implanted:Qty: 1 on 01/24/2023 by Wilbur Rivera MD at [facility] [place] [employer] [id number] 10/15/2024 [id number] / / [id number] Clip Delivery Sytem G4 Xt - [id number] Implanted:Qty: 1 on 03/10/2023 at [facility] [employer] [id number] 04/15/2023 [id number] T / / [id number] Clip Delivery Sytem G4 Xtw - [id number] Implanted:Qty: 1 on 03/10/2023 at [facility] [employer] [id number] 12/06/2023 [id number] / / [id number] Mirtaclip G4 - [id number] Implanted:Qty: 1 on 03/10/2023 at [facility] [employer] 11/19/2023 [id number] / / [id number] Device Watchman Flx 31mm - [id number] Implanted:Qty: 1 on 07/31/2023 by Wilbur Rivera MD at [facility] [employer] : INTRV CARD [id number] 12/02/2025 [id number] / / [id number] documented as of this encounter Visit Diagnoses Diagnosis Compression fracture of T12 vertebra, initial encounter (HCC)- Primary Closed fracture of multiple ribs of left side with routine healing, subsequent encounter Diarrhea, unspecified type History of diverticulitis documented in this encounter Advance Directives Documents on File Type Date 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 No * No Code Date Activated Date [...] Agen t (per Health Care Power of Full Decator Operator document) Care Teams Chief Physical Therapist Relationship Specialty Start Date End Date Grey Calvo DO [address] [place] [address], [place] [address] PCP - General Internal Medicine 02/06/24 documented as of this encounter
--- OUTSIDE RECORDS SUMMARY | 2024-03-21 00:59 | External Medical Summary | Summary of Care ---
Author Name Unknown Organization [facility] Address [address] [place] [address] Phone [phone] Care Team Providers Care Sap Mobility Architect Name Role Phone Grey Calvo DO Primary Care Provider [phone] Reason for Visit * Reason Onset Date Comments Medication Question 03/16/2024 Encounter Details Date Type Department Care Team (Late st Contact Info) Description 03/16/2024 Telephone Family Practice 65 [facility] [address] [place] [address] Grey Calvo DO [address] [place] [address] Medication Question Allergies Active Allergy [...] Dispensed Refills Start Date End Date Status [employer] w/Device KitIndications:Type 2 diabetes mellitus with hemoglobin [...] Wheezing. 15 g 12 06/13/2022 Active OneTouch [place] In Vitro Strip (Glucose Blood) Test blood [...] DIRECTED 100 Tablet 3 03/31/2023 Active Ipratropium [place] 0.03 % Nasal Solution (Atrovent)Indicatio ns:Chronic rhinitis Administer 2 Sprays into nostril in the morning and 2 Sprays before bedtime. 90 mL 3 04/01/2023 Active Allopurinol 300 MG Oral Tablet (Zyloprim) Take 1 Tablet by mouth at bedtime. 90 Tablet 3 05/16/2023 Active Tiotropium [place]-Olodaterol 2.5-2.5 MCG/ACT Inhalation Aerosol Solution (Stiolto Respimat) [...] (Demadex)Indication s:Chronic diastolic CHF (congestive heart failure) ([facility]) Take 2 Tablets by mouth in the morning. 200 Tablet 3 02/24/2024 Active Apixaban 2.5 MG Oral Tablet (Eliquis)Indication s:Paroxysmal atrial fibrillation ([facility]) Take 1 Tablet by mouth in the morning and 1 Tablet before bedtime. 60 Tablet 2 03/09/2024 Active oxyCODONE HCl 5 MG Oral Tablet (Oxy IR)Indications:[facility] ed fracture of multiple ribs of left [...] s:Compression fracture of T12 vertebra, initial encounter ([facility]) Administer 1 spray into 1 nostril for suspected opioid overdose. Seek immediate medical attention. [email or web address] [email or web address]/[email or web address]? [email or web address] 1 Each 3 03/16/2024 4 Active fentaNYL 12 MCG/HR Transdermal Patch 72 HourIndications:Com pression fracture of T12 vertebra, initial encounter ([facility]) Place 1 Patch over 72 hours topically on the skin every 3 days. For pain control. 10 Patch 03/16/2024 Active fentaNYL 12 MCG/HR Transdermal Patch 72 HourIndications:Com pression fracture of T12 vertebra, initial encounter ([facility]) Place 1 Patch over 72 hours topically on the skin every 3 days. For pain control. 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 No-TUOLUMNE can hear w/ hearing aid 03/07/2023 Are [...] to hilda before using duragesic patch Call [facility] [phone] * Addendum Note - Grey Calvo DO - 03/16/2024 1:21 PM EDTAddended by: GREY CALVO on: 03/16/2024 01:21 PM Modules accepted: Orders * Addendum Note - Herminia Batista RP - 03/16/2024 12:44 PM EDT Addended by: HERMINIA BATISTA on: 03/16/2024 12:44 PM Modules accepted: Orders * Telephone Encounter - Herminia Batista RPh - 03/16/2024 12:43 PM EDT Pharmacist called back - their Fentanyl is , but [facility] has it. Need to send a new script over there. Pended to PCP. Herminia Patel, Pharm D, BCACP Clinical Pharmacist [address] [facility] 03/16/2024, 12:44 PM Ph. [phone] * Telephone Encounter - Herminia Batista [facility] - 03/16/2024 11:34 AM EDT Spoke to pharmacistJose, at [facility] and communicated recent oxycodone dose and PCP confirmation of fentanyl. Herminia Patel, Pharm D, BCACP Clinical Pharmacist [address] [facility] 03/16/2024, 11:34 AM Ph. [phone] * Telephone Encounter - Grey Calvo DO - 03/16/2024 11:17 AM EDT Fentanyl patch 12.5 mcg dose is OK Patient unable to get out of bed due to severe back pain from vertebral fracture. Naloxone sent to pharmacy. * Telephone Encounter - Herminia Batista [facility] - 03/16/2024 11:10 AM EDT Spoke to [...] pharmacy now. * Telephone Encounter - Stephanie Chambers, RADHA - 03/16/2024 10:47 AM EDT Jose from [facility] in [employer] left a voicemail in regards to the Fentanyl prescription that they received. He needs to know if patient has taken any other opiods. He didn't see it on the PDMP. Please call him back. Thanks. documented in this encounter Plan of Treatment Upcoming Encounters Date Type Department Care Team (Late st Contact Info) Description 03/18/2024 3:30 PM EDT Telemedicine Neurosurgery, [place] [address] [place] [address] Massimo Key MD [address] [place] [address] 03/24/2024 10:00 AM EDT Scheduled Telephone [facility], [facility] [address] [facility] [place] [address] Coordinator, [facility] 132 [facility] [place] [address] 03/25/2024 8:30 AM EDT Office Visit Hematology/Oncolog y [facility] [address] [facility] [place] [address] Nereyda Metz CRNP [address] [place] [address] O[place]AN[place]TH BR[place] [address] 03/30/2024 11:20 AM EDT Office Visit Family Practice 65 [facility] [address] [place] [address] Grey Calvo, 293 [place] [address] 04/01/2024 11:00 AM EDT Home Visit [facility], [facility] 132 [facility] [place] [address] Michelle Hurt, RN [address] [place] [address] 04/05/2024 11:00 AM EDT Imaging Vascular Lab, [facility] 2nd [facility] [address] [facility] [place] [address] 04/14/2024 10:50 AM EDT Office Visit Vascular Surgery, [facility] [address] [facility] [place] [address] Aj Sahni MD [address] [place] [address] 04/20/2024 3:40 PM EDT Office Visit Family Practice [address] [place] [address] [address] [place] [address] Grey Calvo, DO [address] [place] [address] 05/21/2024 1:14 PM EDT Hospital Encounter OR [facility], Operating Room, [facility] - 4th Floor [address] [place] [address] Jana Vieira, DO [address] [place] [address] 05/21/2024 1:14 PM EDT - 05/21/2024 1:59 PM EDT Surgery OR [facility], Operating Room, [facility] - 4th Floor [address] [place] [address] Jana Vieira, DO [address] [place] [address] COLONOSCOPY FLEXIBLE PROXIMAL DIAGNOSTIC 06/03/2024 2:15 PM EDT Office Visit Ophthalmology, [facility] 132 [facility] [place] [address] Wilbur Benavides, DO [facility] [place] [address] 07/01/2024 2:30 PM EST Office Visit Gastroenterology, [facility] [address] [facility] [place] [address] Lacy Ronquillo CRNP 132 [facility] [place] [address] 08/09/2024 1:00 PM EST Nurse Only Ancillary 65 [facility] [address] [place] [address] College, Nurse Annual Wellness Visit [address] [address] Scheduled Procedures Name Priority Associated Diagnoses Date/Ti [...] COPD 07/31/2024 07/31/2023 CKD PHOS USE SMARTSET 81996 08/19/202407/26, 05/01/2022, 04/03/2022, Additional history exists Diabetic Foot Exam 09/15/2024 09/15/2023, 0 10/01/2022, 10/26/2021, Additional history exists GFR 09/15/2024 03/15/2024, 07/0 04/2024, 02/24/2024, Additional history exists Depression Monitoring 09/29/2024 09/29/2023 Albumin/Creatinine Ratio 12/08/2024 024, 02/21/2023, 05/01/2022, Additional history exists CKD HGB USE SMARTSET 34894 03/15/202503/15, 03/15/2024, 03/02/2024, Additional history exists TSH [...] this encounter Medical Devices Implanted Type Area Sample Taker Operator Device Identifier Shelf Expiration Date Model / Serial / Lot Cath Thermodilution 6fr - [id number] Implanted:Qty: 1 on 01/24/2023 by Wilbur Rivera MD at [facility] [employer] [id number] 10/15/2024 [id number] / / [id number] Clip Delivery Sytem G4 Xt - [id number] Implanted:Qty: 1 on 03/10/2023 at [facility] [employer] [id number] 04/15/2023 [id number] / / [id number] Clip Delivery Sytem G4 Xtw - [id number] Implanted:Qty: 1 on 03/10/2023 at [facility] [employer] [id number] 12/06/2023 [id number] / / [id number] Mirtaclip G4 - [id number] Implanted:Qty: 1 on 03/10/2023 at [facility] [employer] 11/19/2023 [id number] / / [id number] Device Watchman Flx 31mm - [id number] Implanted:Qty: 1 on 07/31/2023 by Wilbur Rivera MD at [facility] [employer] : INTRV CARD [id number] 12/02/2025 [id number] / / [id number] documented as of this encounter Visit Diagnoses Diagnosis Compression fracture of T12 vertebra, initial encounter (HCC)- Primary Diarrhea, unspecified type History of diverticulitis documented in this encounter Advance Directives Documents on File Type Date Recorded 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 No * No Code Date Activated Date [...] Agents on File Name Relationship [facility] Bright Yuval Adult Child Health Care Agen t (per Health Care Power of Cut Off Saw Operator Metal document) Care Teams Sap Mobility Architect Relationship Specialty Start Date End Date Grey Calvo DO [address] [place] [address] PCP - General Internal Medicine 02/06/24 documented as of this encounter
--- OUTSIDE RECORDS SUMMARY | 2024-03-21 00:59 | External Medical Summary | Summary of Care ---
Author Name Unknown Organization [facility] Address [address] [place] [address] Phone [phone] Care Team Providers Care Rotor Plate Washer Name Role Phone Grey Calvo DO Primary Care Provider [phone] Reason for Visit * Reason Onset Date Comments Medication Question 03/16/2024 Encounter Details Date Type Department Care Team (Late st Contact Info) Description 03/16/2024 Telephone Family Practice 65 [facility] [address] [place] [address] Grey Calvo DO [address] [place] [address] Medication Question Allergies Active Allergy [...] Dispensed Refills Start Date End Date Status [employer] w/Device KitIndications:Type 2 diabetes mellitus with hemoglobin [...] Wheezing. 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 90 mL 3 04/01/2023 Active Allopurinol 300 MG Oral Tablet (Zyloprim) Take 1 Tablet by mouth at bedtime. 90 Tablet 3 05/16/2023 Active Tiotropium [place]-Olodaterol 2.5-2.5 MCG/ACT Inhalation Aerosol Solution (Stiolto Respimat) [...] (Demadex)Indication s:Chronic diastolic CHF (congestive heart failure) ([facility]) Take 2 Tablets by mouth in the morning. 200 Tablet 3 02/24/2024 Active Apixaban 2.5 MG Oral Tablet (Eliquis)Indication s:Paroxysmal atrial fibrillation ([facility]) Take 1 Tablet by mouth in the morning and 1 Tablet before bedtime. 60 Tablet 2 03/09/2024 Active oxyCODONE HCl 5 MG Oral Tablet (Oxy IR)Indications:[facility] ed fracture of multiple ribs of [...] s:Compression fracture of T12 vertebra, initial encounter ([facility]) Administer 1 spray into 1 nostril for suspected opioid overdose. Seek immediate medical attention. [email or web address] [email or web address]? [email or web address] 1 Each 3 03/16/2024 4 Active fentaNYL 12 MCG/HR Transdermal Patch 72 HourIndications:Com pression fracture of T12 vertebra, initial encounter ([facility]) Place 1 Patch over 72 hours topically on the skin every 3 days. For pain control. 10 Patch 03/16/2024 Active fentaNYL 12 MCG/HR Transdermal Patch 72 HourIndications:Com pression fracture of T12 vertebra, initial encounter ([facility]) Place 1 Patch over 72 hours topically on the skin every 3 days. For pain control. 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 No-MAKAH can hear w/ hearing aid 03/07/2023 Are [...] continue plan and ok to use patch. Thank you * Telephone Encounter - Grace [...] to hilda before using duragesic patch Call [facility] [phone] * Addendum Note - Grey Calvo DO - 03/16/2024 1:21 PM EDTAddended by: GREY CALVO on: 03/16/2024 01:21 PM Modules accepted: Orders * Addendum Note - Herminia Batista [facility] - 03/16/2024 12:44 PM EDT Addended by: HERMINIA BATISTA on: 03/16/2024 12:44 PM Modules accepted: Orders * Telephone Encounter - Herminia Batista RPh - 03/16/2024 12:43 PM EDT Pharmacist called back - their Fentanyl is , but [facility] has it. Need to send a new script over there. Pended to PCP. Herminia Patel, Pharm D, BCACP Clinical Pharmacist [address] [facility] 03/16/2024, 12:44 PM Ph. [phone] * Telephone Encounter - Herminia Batista [facility] - 03/16/2024 11:34 AM EDT Spoke to pharmacistJose, at [facility] and communicated recent oxycodone dose and PCP confirmation of fentanyl. Herminia Patel, Pharm D, BCACP Clinical Pharmacist [address] [facility] 03/16/2024, 11:34 AM Ph. [phone] * Telephone Encounter - Grey Calvo DO - 03/16/2024 11:17 AM EDT Fentanyl patch 12.5 mcg dose is OK Patient unable to get out of bed due to severe back pain from vertebral fracture. Naloxone sent to pharmacy. * Telephone Encounter - Herminia Batista [facility] - 03/16/2024 11:10 AM EDT Spoke to [...] - 03/16/2024 10:47 AM EDT Jose from [facility] in [facility] left a voicemail in regards to the Fentanyl prescription that they received. He needs to know if patient has taken any other opiods. He didn't see it on the PDMP. Please call him back. Thanks. documented in this encounter Plan of Treatment Upcoming Encounters Date Type Department Care Team (Late st Contact Info) Description 03/18/2024 3:30 PM EDT Telemedicine Neurosurgery, [place] [address] [place] [address] Massimo Key MD [address] [place] [address] 03/24/2024 10:00 AM EDT Scheduled Telephone [facility], [facility] [address] [facility] [place] [address] Coordinator, [facility] [address] [facility] [place] [address] 03/25/2024 8:30 AM EDT Office Visit Hematology/Oncolog y [facility] [place] [facility] [place] [address] Nereyda Metz CRNP [address] [facility] [place] [address] 03/30/2024 11:20 AM EDT Office Visit Family Practice 65 [facility] [place] 293 [place] [address] Grey Calvo DO 293 [place] [address] 04/01/2024 11:00 AM EDT Home Visit [facility], [facility] [address] [place] [address] Michelle Hurt, RN [address] [place] [address] 04/05/2024 11:00 AM EDT Imaging Vascular Lab, [facility] 2nd [facility] [address] [facility] [place] [address] 04/14/2024 10:50 AM EDT Office Visit Vascular Surgery, [facility] [address] [facility] [place] [address] Aj Sahni MD [address] [place] [address] 04/20/2024 3:40 PM EDT Office Visit Family Practice [address] [place] [address] [address] [place] [address] Grey Calvo, DO [address] [place] [address] 05/21/2024 1:14 PM EDT Hospital Encounter OR [facility], Operating Room, [facility] - 4th Floor [address] [place] [place] [address] Jana Vieira, DO [address] [place] [address] 05/21/2024 1:14 PM EDT - 05/21/2024 1:59 PM EDT Surgery OR [facility], Operating Room, [facility] - 4th Floor [address] [place] [place] [address] Jana Vieira, DO [address] [place] [address] COLONOSCOPY FLEXIBLE PROXIMAL DIAGNOSTIC 06/03/2024 2:15 PM EDT Office Visit Ophthalmology, [facility] 132 [facility] [place] [address] Wilbur Benavides, DO [facility] [place] [address] 07/01/2024 2:30 PM EST Office Visit Gastroenterology, [facility] [address] [facility] [place] [address] Lacy Ronquillo CRNP [address] [facility] [place] [address] 08/09/2024 1:00 PM EST Nurse Only Ancillary 65 [facility] 293 [place] [address] College, Nurse Annual Wellness Visit [address] [place] [address] Scheduled Procedures Name Priority Associated Diagnoses Date/Ti [...] COPD 07/31/2024 07/31/2023 CKD PHOS USE SMARTSET 32540 08/19/202407/26, 05/01/2022, 04/03/2022, Additional history exists Diabetic Foot Exam 09/15/2024 09/15/2023, 0 10/01/2022, 10/26/2021, Additional history exists GFR 09/15/2024 03/15/2024, 07/0 04/2024, 02/24/2024, Additional history exists Depression Monitoring 09/29/2024 09/29/2023 Albumin/Creatinine Ratio 12/08/2024 024, 02/21/2023, 05/01/2022, Additional history exists CKD HGB USE SMARTSET 58301 03/15/202503/15, 03/15/2024, 03/02/2024, Additional history exists TSH [...] this encounter Medical Devices Implanted Type Area Environmental Maintenance Worker Device Identifier Shelf Expiration Date Model / Serial / Lot Cath Thermodilution 6fr - [id number] Implanted:Qty: 1 on 01/24/2023 by Wilbur Rivera MD at [facility] [employer] [id number] 10/15/2024 [id number] / / [id number] Clip Delivery Sytem G4 Xt - [id number] Implanted:Qty: 1 on 03/10/2023 at [facility] [employer] [id number] 04/15/2023 [id number] T / / [id number] Clip Delivery Sytem G4 Xtw - [id number] Implanted:Qty: 1 on 03/10/2023 at [facility] [employer] [id number] 12/06/2023 [id number] TW / / [id number] Mirtaclip G4 - [id number] Implanted:Qty: 1 on 03/10/2023 at [facility] [employer] 11/19/2023 [id number] / / [id number] Device Watchman Flx 31mm - [id number] Implanted:Qty: 1 on 07/31/2023 by Wilbur Rivera MD at [facility] [employer] : INTRV CARD [id number] 12/02/2025 [id number] / / [id number] documented as of this encounter Visit Diagnoses Diagnosis Compression fracture of T12 vertebra, initial encounter (HCC)- Primary Diarrhea, unspecified type History of diverticulitis documented in this encounter Advance Directives Documents on File Type Date Recorded 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 No * No Code Date Activated Date [...] Agents on File Name Relationship Healthcare Agent [facility] p Communication Bright Yuval Adult Child Health Care Agen t (per Health Care Power of Circulator document) Care Teams Rotor Plate Washer Relationship Specialty Start Date End Date Grey Calvo DO [address] [facility] [place] [address] PCP - General Internal Medicine 02/06/24 documented as of this encounter
--- OUTSIDE RECORDS SUMMARY | 2024-03-21 00:59 | External Medical Summary | Summary of Care ---
Author Name Unknown Organization [facility] Address [address] [place] [address] Phone [phone] Care Team Providers Care Low Altitude Air Defense Officer Name Role Phone Grey Calvo DO Primary Care Provider Reason for Visit * Reason Onset Date Comments Medication Question 03/16/2024 Encounter Details Date Type Department Care Team (Late st Contact Info) Description 03/16/2024 Telephone Family Practice 65 [facility] [address] [place] [address] Grey Calvo DO [address] [place] [address] Medication Question Allergies Active Allergy [...] Dispensed Refills Start Date End Date Status Eyevensys w/Device KitIndications:Type 2 diabetes mellitus with hemoglobin [...] Wheezing. 15 g 12 06/13/2022 Active OneTouch VerAhonya In Vitro Strip (Glucose Blood) Test blood sugars up to 2 times a day E11.9 200 Strip 3 12/20/2022 Active Atorvastatin Calcium 20 MG Oral Tablet (Lipitor)Indication s:PVD (peripheral vascular disease) ([facility]),Type 2 diabetes mellitus with stage 3a chronic kidney disease and hypertension ([facility]) TAKE ONE TABLET BY MOUTH EVERY DAY DIRECTED 100 Tablet 3 03/31/2023 Active Ipratropium [place] 0.03 % Nasal Solution (Atrovent)Indicatio ns:Chronic rhinitis Administer 2 Sprays into nostril in the morning and 2 Sprays before bedtime. 90 mL 3 04/01/2023 Active Allopurinol 300 MG Oral Tablet (Zyloprim) Take 1 Tablet by mouth at bedtime. 90 Tablet 3 05/16/2023 Active Tiotropium [place]-Olodaterol 2.5-2.5 MCG/ACT Inhalation Aerosol Solution (Stiolto Respimat) [...] (Demadex)Indication s:Chronic diastolic CHF (congestive heart failure) ([facility]) Take 2 Tablets by mouth in the morning. 200 Tablet 3 02/24/2024 Active Apixaban 2.5 MG Oral Tablet (Eliquis)Indication s:Paroxysmal atrial fibrillation ([facility]) Take 1 Tablet by mouth in the morning and 1 Tablet before bedtime. 60 Tablet 2 03/09/2024 Active oxyCODONE HCl 5 MG Oral Tablet (Oxy IR)Indications:[facility] ed fracture of multiple ribs of left [...] s:Compression fracture of T12 vertebra, initial encounter ([facility]) Administer 1 spray into 1 nostril for suspected opioid overdose. Seek immediate medical attention. [email or web address] 1 Each 3 03/16/2024 4 Active fentaNYL 12 MCG/HR Transdermal Patch 72 HourIndications:Com pression fracture of T12 vertebra, initial encounter ([facility]) Place 1 Patch over 72 hours topically on the skin every 3 days. For pain control. 10 Patch 03/16/2024 Active fentaNYL 12 MCG/HR Transdermal Patch 72 HourIndications:Com pression fracture of T12 vertebra, initial encounter ([facility]) Place 1 Patch over 72 hours topically on the skin every 3 days. For pain control. 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 No-[place] can hear w/ hearing aid 03/07/2023 Are [...] to hilda before using duragesic patch Call [facility] [phone] * Addendum Note - Grey Calvo DO [...] back - their Fentanyl is , but [facility] has it. Need to send a new script over there. Pended to PCP. Nelson Calloway, [facility] Clinical Pharmacist [address] - [facility] 03/16/2024, 12:44 PM Ph. [phone] * Telephone Encounter - Herminia Batista [facility] - 03/16/2024 11:34 AM EDT Spoke to pharmacistJose, at [facility] and communicated recent oxycodone dose and PCP confirmation of fentanyl. Nelson Calloway, [facility] Clinical Pharmacist [address] - Medication [facility] 03/16/2024, 11:34 AM Ph. [phone] * Telephone Encounter - Grey Calvo DO - 03/16/2024 11:17 AM EDT Fentanyl patch 12.5 mcg dose is OK Patient unable to get out of bed due to severe back pain from vertebral fracture. Naloxone sent to pharmacy. * Telephone Encounter - Herminia Batista [facility] - 03/16/2024 11:10 AM EDT Spoke to [...] - 03/16/2024 10:47 AM EDT Jose from [facility] in [facility] left a voicemail in regards to the Fentanyl prescription that they received. He needs to know if patient has taken any other opiods. He didn't see it on the PDMP. Please call him back. Thanks. documented in this encounter Plan of Treatment Upcoming Encounters Date Type Department Care Team (Late st Contact Info) Description 03/18/2024 3:30 PM EDT Telemedicine Neurosurgery, [place] [address] [place] [address] Massimo Key MD [address] [place] [address] 03/24/2024 10:00 AM EDT Scheduled Telephone [facility], [facility] [address] [place] [address] Coordinator, [facility] [address] [place] [address] 03/25/2024 8:30 AM EDT Office Visit Hematology/Oncolog y Jerri Zamora [place] [address] [place], [place] [address] Nereyda Metz CRNP [address] [place] [address] [place] [address] 03/30/2024 11:20 AM EDT Office Visit Family Practice [address] [place] [address] 293 [place] [address] Grey Calvo, DO 293 [place] [address] 04/01/2024 11:00 AM EDT Home Visit [facility], [facility] 132 [facility] [place] [address] Michelle Hurt, RN 132 [facility] [place] [address] 04/05/2024 11:00 AM EDT Imaging Vascular Lab, [facility] 2nd [facility] 132 [facility] [place] [address] 04/14/2024 10:50 AM EDT Office Visit Vascular Surgery, [facility] 132 [facility] [place] [address] Aj Sahni [facility] [address] [facility] [address] 04/20/2024 3:40 PM EDT Office Visit Family Practice [address] [place] [address] 293 [facility], [place] [address] Grey Calvo, DO 293 [facility], [place] [address] 05/21/2024 1:14 PM EDT Hospital Encounter OR [facility], Operating Room, [facility] - 4th Floor [address] [place] [address] Jana Vieira, DO 132 [facility] [place] [address] 05/21/2024 1:14 PM EDT - 05/21/2024 1:59 PM EDT Surgery OR [facility], Operating Room, [facility] - 4th Floor 400 [facility] [place] [address] Jana Vieira, DO [address] [place] [address] COLONOSCOPY FLEXIBLE PROXIMAL DIAGNOSTIC 06/03/2024 2:15 PM EDT Office Visit Ophthalmology, [facility] [place] [address] Wilbur Benavides, DO [address] [place] [address] 07/01/2024 2:30 PM EST Office Visit Gastroenterology, [facility] [place] [address] Lacy Ronquillo CRNP [facility] [place] [address] 08/09/2024 1:00 PM EST Nurse Only Ancillary 65 [facility] 293 [place] [address] College, Nurse Annual Wellness Visit [address] [place] [address] Scheduled Procedures Name Priority Associated Diagnoses Date/Ti [...] COPD 07/31/2024 07/31/2023 CKD PHOS USE SMARTSET 81238 08/19/202407/26, 05/01/2022, 04/03/2022, Additional history exists Diabetic Foot Exam 09/15/2024 09/15/2023, 0 10/01/2022, 10/26/2021, Additional history exists GFR 09/15/2024 03/15/2024, 07/0 04/2024, 02/24/2024, Additional history exists Depression Monitoring 09/29/2024 09/29/2023 Albumin/Creatinine Ratio 12/08/2024 024, 02/21/2023, 05/01/2022, Additional history exists CKD HGB USE SMARTSET 11371 03/15/202503/15, 03/15/2024, 03/02/2024, Additional history exists TSH [...] encounter Medical Devices Implanted Type Area Freight Manager Device Identifier Shelf Expiration Date Model / Serial / Lot Cath Thermodilution 6fr - [id number] Implanted:Qty: 1 on 01/24/2023 by Wilbur Rivera MD at [facility] [employer]ERE [id number] 10/15/2024 [id number] / / [id number] Clip Delivery Sytem G4 Xt - [id number] Implanted:Qty: 1 on 03/10/2023 at [facility] [employer] [id number] 04/15/2023 [id number] / / [id number] Clip Delivery Sytem G4 Xtw - [id number] Implanted:Qty: 1 on 03/10/2023 at [facility] [employer] [id number] 12/06/2023 [id number] / / [id number] Mirtaclip G4 - [id number] Implanted:Qty: 1 on 03/10/2023 at [facility] [employer] 11/19/2023 [id number] / / [id number] Device Watchman Flx 31mm - [id number] Implanted:Qty: 1 on 07/31/2023 by Wilbur Rivera MD at [facility] [employer] : INTRV CARD [id number] 12/02/2025 [id number] documented as of this encounter Visit Diagnoses Diagnosis Compression fracture of T12 vertebra, initial encounter (HCC)- Primary Diarrhea, unspecified type History of diverticulitis documented in this encounter Advance Directives Documents on File Type Date Recorded Patient Order Filler Expl anation Advance Directives and Living Will 11/29/2022 ADVANCE DIRECTIVE / LIVING WILL Power of Submersible Pilot 11/29/2022 POWER OF A TTORNEY Advance Directives and Living Will 10/24/2014 ADVANCE DIRECTIVE / LIVING WILL Power of Submersible Pilot 10/24/2014 POWER OF A TTORNEY * Full [...] the patient have Health Care Power of Submersible Pilot? No * No Code Date Activated Date [...] Agents on File Name Relationship Healthcare Agent [facility] Communication [facility] Adult Child Health Care Frieda t (per Health Care Power of Submersible Pilot document) Care Teams Low Altitude Air Defense Officer Relationship Specialty Start Date End Date Grey Calvo DO 293 [place] [address] PCP - General Internal Medicine 02/06/24 documented as of this encounter
--- OUTSIDE RECORDS SUMMARY | 2024-03-21 01:00 | External Medical Summary | Summary of Care ---
Author Name Unknown Organization [facility] Address [address] [place] [address] Phone [phone] Care Team Providers Care Pre Certification Specialist Name Role Phone Florentin Calvo DO Primary Care Provider [phone] Reason for Visit * Reason Onset Date Comments Appointment 03/17/2024 Encounter Details Date Type Department Care Team (Late st Contact Info) Description 03/17/2024 Telephone [facility], [facility] [address] [place] [address] Services, Scheduling [address] [place] [address] Appointment (/) Allergies Active Allergy Reactions Criticality Noted [...] Dispensed Refills Start Date End Date Status Surfbreak RentalsTouch Verio w/Device KitIndications:Type 2 diabetes mellitus with [...] Oral Tablet (Lipitor)Indications :PVD (peripheral vascular disease) ([facility]),Type 2 diabetes mellitus with stage 3a chronic kidney disease and hypertension ([facility]) TAKE ONE TABLET BY MOUTH EVERY DAY DIRECTED 100 Tablet 3 03/31/2023 Active Ipratropium [place] 0.03 % Nasal Solution (Atrovent)Indication s:Chronic rhinitis Administer 2 Sprays into nostril in the morning and 2 Sprays before bedtime. 90 mL 3 04/01/2023 Active Allopurinol 300 MG Oral Tablet (Zyloprim) Take 1 Tablet by mouth at bedtime. 90 Tablet 3 05/16/2023 Active Tiotropium [place]-Olodaterol 2.5-2.5 MCG/ACT Inhalation Aerosol Solution (Stiolto Respimat) [...] Active Levothyroxine Sodium 150 MCG Oral Tablet (Levoxyl)Indications :Acquired hypothyroidism Take [...] (Demadex)Indications :Chronic diastolic CHF (congestive heart failure) ([facility]) Take 2 Tablets by mouth in the morning. 200 Tablet 3 02/24/2024 Active Apixaban 2.5 MG Oral Tablet (Eliquis)Indications :Paroxysmal atrial fibrillation ([facility]) Take 1 Tablet by mouth [...] Naloxone HCl 4 MG/0.1ML NA LIQD FOR CAREGIVERIndications :Compression fracture of T12 vertebra, initial encounter ([facility]) Administer 1 spray into 1 nostril for suspected opioid overdose. Seek immediate medical attention. [email or web address] 1 Each 3 03/16/2024 03/17/2024 Active fentaNYL 12 MCG/HR Transdermal Patch 72 HourIndications:Comp ression fracture of T12 vertebra, initial encounter ([facility]) Place 1 Patch over 72 hours topically on the skin every 3 days. For pain control. 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 No-MI'[place]Q can hear w/ hearing aid 03/07/2023 Are [...] Miscellaneous Notes * Telephone Encounter - Angle See OSA - 03/17/2024 9:39 AM EDT Called s/w pts son he states they still havent [facility] bed. documented in this encounter Plan of Treatment Upcoming Encounters Date Type Department Care Team (Late st Contact Info) Description 03/18/2024 3:30 PM EDT Telemedicine Neurosurgery, [place] [address] [facility] [address] Massimo Key MD [address] [facility] [place] [address] 03/24/2024 10:00 AM EDT Scheduled Telephone [facility] [address] [place] [address] Coordinator, [facility] 132 [facility] [place] [address] 03/25/2024 8:30 AM EDT Office Visit Hematology/Oncolog y [facility] [address] [place] [address] Nereyda Metz CRNP [address] [facility] [place] [address] 03/30/2024 11:20 AM EDT Office Visit Family Practice [address] [place] [address] 293 [facility] [address] Florentin Calvo, 293 [facility] [address] 04/01/2024 11:00 AM EDT Home Visit [facility], [facility] 132 [facility] [place] [address] Michelle Hurt, RN 132 [place] [address] 04/05/2024 11:00 AM EDT Imaging Vascular Lab, [facility] 2nd [facility] 132 [facility] [place] [address] 04/14/2024 10:50 AM EDT Office Visit Vascular Surgery, [facility] 132 [facility] [place] [address] Aj Sahni MD [address] [place] [address] 04/20/2024 3:40 PM EDT Office Visit Family Practice 65 [facility] 293 [facility] [address] Florentin Calvo, 293 [facility] [address] 05/21/2024 1:14 PM EDT Hospital Encounter OR [facility], Operating Room, [facility] - 4th Floor [address] [place] [address] Jana Vieira, DO [address] [facility] [place] [address] 05/21/2024 1:14 PM EDT - 05/21/2024 1:59 PM EDT Surgery OR [facility], Operating Room, [facility] - 4th Floor 400 [facility] [place] [address] Jana Vieira, DO [address] [facility] [place] [address] COLONOSCOPY FLEXIBLE PROXIMAL DIAGNOSTIC 06/03/2024 2:15 PM EDT Office Visit Ophthalmology, [facility] 132 [facility] [place] [address] Wilbur Benavides, DO [address] [place] [address] 07/01/2024 2:30 PM EST Office Visit Gastroenterology, [facility] 132 [facility] [place] [address] Lacy Ronquillo CRNP 132 [facility] [place] [address] 08/09/2024 1:00 PM EST Nurse Only Ancillary 65 [facility] 293 [facility] [address] College, Nurse Annual Wellness Visit [address] [address] Scheduled Procedures Name Priority Associated Diagnoses Date/Ti [...] COPD 07/31/2024 07/31/2023 CKD PHOS USE SMARTSET 45378 08/19/202407/26, 05/01/2022, 04/03/2022, Additional history exists Diabetic Foot Exam 09/15/2024 09/15/2023, 0 10/01/2022, 10/26/2021, Additional history exists GFR 09/15/2024 03/15/2024, 07/0 04/2024, 02/24/2024, Additional history exists Depression Monitoring 09/29/2024 09/29/2023 Albumin/Creatinine Ratio 12/08/2024 024, 02/21/2023, 05/01/2022, Additional history exists CKD HGB USE SMARTSET 03687 03/15/202503/15, 03/15/2024, 03/02/2024, Additional history exists TSH [...] this encounter Medical Devices Implanted Type Area Asbestos Removal Worker Device Identifier Shelf Expiration Date Model / Serial / Lot Cath Thermodilution 6fr - [id number] Implanted:Qty: 1 on 01/24/2023 by Wilbur Rivera MD [place] [facility] [employer] [id number] 10/15/2024 [id number] / / [id number] Clip Delivery Sytem G4 Xt - [id number] Implanted:Qty: 1 on 03/10/2023 at [facility] [employer] [id number] 04/15/2023 [id number] T / / [id number] Clip Delivery Sytem G4 Xtw - [id number] Implanted:Qty: 1 on 03/10/2023 at [facility] [employer] [id number] 12/06/2023 [id number] / / [id number] Mirtaclip G4 - [id number] Implanted:Qty: 1 on 03/10/2023 at [facility] [employer] 11/19/2023 [id number] / / [id number] Device Watchman Flx 31mm - [id number] Implanted:Qty: 1 on 07/31/2023 by Wilbur Rivera MD at [facility] [employer] : INTRV CARD [id number] 12/02/2025 [id number] documented as of this encounter Advance Directives Documents on File Type Date Recorded Patient Survey Engineer Expl anation Advance Directives and Living Will 11/29/2022 ADVANCE DIRECTIVE / LIVING WILL Power of Offender Employment Specialist 11/29/2022 POWER OF A TTORNEY Advance Directives and Living Will 10/24/2014 ADVANCE DIRECTIVE / LIVING WILL Power of Offender Employment Specialist 10/24/2014 POWER OF A TTORNEY * Full [...] the patient have Health Care Power of Offender Employment Specialist? No * No Code Date Activated Date [...] on File Name Relationship Healthcare Agent [facility] p Communication [facility] Adult Child Health Care Agen t (per Health Care Power of Offender Employment Specialist document) Care Teams Pre Certification Specialist Relationship Specialty Start Date End Date Florentin Calvo DO 293 [place] [address] PCP - General Internal Medicine 02/06/24 documented as of this encounter
--- OUTSIDE RECORDS SUMMARY | 2024-03-21 01:00 | External Medical Summary | Summary of Care ---
Author Name Unknown Organization [facility] Address [address] [place] [address] Phone [phone] Care Team Providers Care District Court Administrator Name Role Phone Grey Calvo DO Primary Care Provider [phone] Reason for Visit * Reason Onset Date Comments Medication Question 03/16/2024 Encounter Details Date Type Department Care Team (Late st Contact Info) Description 03/16/2024 Telephone Family Practice 65 [facility] [address] [place] [address] Grey Calvo DO [address] [place] [address] Medication Question Allergies Active Allergy Reactions Criticality Noted Date Comments Azithromycin Other (Please comment) 12/04/2021 QTC prolongation at [facility] Celecoxib Hives,Rash High 03/24/2013 Other [...] Dispensed Refills Start Date End Date Status Jawsome Dive Adventures w/Device KitIndications:Type 2 diabetes mellitus with hemoglobin [...] Wheezing. 15 g 12 06/13/2022 Active OneTouch VerSkillBridge In Vitro Strip (Glucose Blood) Test blood [...] DIRECTED 100 Tablet 3 03/31/2023 Active Ipratropium N[place] 0.03 % Nasal Solution (Atrovent)Indicatio ns:Chronic rhinitis Administer 2 Sprays into nostril in the morning and 2 Sprays before bedtime. 90 mL 3 04/01/2023 Active Allopurinol 300 MG Oral Tablet (Zyloprim) Take 1 Tablet by mouth at bedtime. 90 Tablet 3 05/16/2023 Active Tiotropium Nue[place]-Olodaterol 2.5-2.5 MCG/ACT Inhalation Aerosol Solution (Stiolto Respimat) [...] s:Chronic diastolic CHF (congestive heart failure) ([facility]) Take 2 Tablets by mouth in the morning. 200 Tablet 3 02/24/2024 Active Apixaban 2.5 MG Oral Tablet (Eliquis)Indication s:Paroxysmal atrial fibrillation ([facility]) Take 1 Tablet by mouth in the morning and 1 Tablet before bedtime. 60 Tablet 2 03/09/2024 Active oxyCODONE HCl 5 MG Oral Tablet (Oxy IR)Indications:[facility] ed fracture of multiple ribs of left [...] ([facility]) Administer 1 spray into 1 nostril for suspected opioid overdose. Seek immediate medical attention. [email or web address]://[email or web address] [email or web address]/[email or web address]? 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 No-[place] can hear w/ hearing aid 03/07/2023 Are [...] 2:36 PM EDT Wants to speak to abhishek before using duragesic patch Call [facility] [phone] * Addendum Note - Grey Calvo DO - 03/16/2024 1:21 PM EDTAddended by: GREY CALVO on: 03/16/2024 01:21 PM Modules accepted: Orders * Addendum Note - Herminia Batista [facility] - 03/16/2024 12:44 PM EDT Addended by: HERMINIA BATISTA on: 03/16/2024 12:44 PM Modules accepted: Orders * Telephone Encounter - Herminia Batista RP - 03/16/2024 12:43 PM EDT Pharmacist called back - their Fentanyl is , but [facility] has it. Need to send a new script over there. Pended to PCP. Nelson Calloway, NELSY Clinical Pharmacist [address] [facility] 03/16/2024, 12:44 PM Ph. [phone] * Telephone Encounter - Herminia Batista RPh - 03/16/2024 11:34 AM EDT Spoke to pharmacistJose, at [facility] and communicated recent oxycodone dose and PCP confirmation of fentanyl. Nelson Calloway, BCACP Clinical Pharmacist [address] [facility] 03/16/2024, 11:34 AM Ph. [phone] * Telephone Encounter - Grey Calvo DO - 03/16/2024 11:17 AM EDT Fentanyl patch 12.5 mcg dose is OK Patient unable to get out of bed due to severe back pain from vertebral fracture. Naloxone sent to pharmacy. * Telephone Encounter - Herminia Batista RP - 03/16/2024 11:10 AM EDT Spoke to [...] - 03/16/2024 10:47 AM EDT Jose from [facility] in [employer] left a voicemail in regards to the Fentanyl prescription that they received. He needs to know if patient has taken any other opiods. He didn't see it on the PDMP. Please call him back. Thanks. documented in this encounter Plan of Treatment Upcoming Encounters Date Type Department Care Team (Late st Contact Info) Description 03/18/2024 3:30 PM EDT Telemedicine Neurosurgery, [place] [address] [place] [address] Massimo Key MD [address] [place] [address] 03/24/2024 10:00 AM EDT Scheduled Telephone [facility] [place], [facility] 132 [facility] [place] [address] Coordinator, [facility] 132 [facility] [place] [address] 03/25/2024 8:30 AM EDT Office Visit Hematology/Oncolog y [facility] 200 [facility] [place] [address] Nereyda Metz CRNP [address] [place] [address] 03/30/2024 11:20 AM EDT Office Visit Family Practice 65 [facility] 293 [place] [address] Grey Calvo, [address] [place] [address] 04/01/2024 11:00 AM EDT [facility] Visit [facility] 132 [facility] [place] [address] Michelle Hurt RN 132 [facility] [place] [address] 04/05/2024 11:00 AM EDT Imaging Vascular Lab, [facility] 2nd [facility] 132 [facility] [place] [address] 04/14/2024 10:50 AM EDT Office Visit Vascular Surgery, [facility] 132 [facility] [place] [address] Aj Sahni MD [address] [place] [address] 04/20/2024 3:40 PM EDT Office Visit Family Practice 65 [facility] [address] [place] [address] Grey Calvo, DO [address] [place] [address] 05/21/2024 1:14 PM EDT Hospital Encounter OR [facility], Operating Room, [facility] - 4th Floor 400 [facility] [place] [address] Jana Vieira, DO 132 [facility] [place] [address] 05/21/2024 1:14 PM EDT - 05/21/2024 1:59 PM EDT Surgery OR [facility], Operating Room, [facility] Floor 400 [facility] [place] [address] Jana Vieira, DO 132 [facility] [place] [address] COLONOSCOPY FLEXIBLE PROXIMAL DIAGNOSTIC 06/03/2024 2:15 PM EDT Office Visit Ophthalmology, [facility] 132 [facility] [place] [address] Wilbur Benavides, DO [facility] [place] [address] 07/01/2024 2:30 PM EST Office Visit Gastroenterology, [facility] [address] [place] [address] Lacy Ronquillo CRNP [address] [place] [address] 08/09/2024 1:00 PM EST Nurse Only Ancillary 65 [facility] [place] 293 [place] [address] College, Nurse Annual Wellness Visit [address] [facility] [address] [facility] [address] Scheduled Procedures Name Priority Associated Diagnoses Date/Ti [...] COPD 07/31/2024 07/31/2023 CKD PHOS USE SMARTSET 73853 08/19/202407/26, 05/01/2022, 04/03/2022, Additional history exists Diabetic Foot Exam 09/15/2024 09/15/2023, 0 10/01/2022, 10/26/2021, Additional history exists GFR 09/15/2024 03/15/2024, 07/0 04/2024, 02/24/2024, Additional history exists Depression Monitoring 09/29/2024 09/29/2023 Albumin/Creatinine Ratio 12/08/2024 024, 02/21/2023, 05/01/2022, Additional history exists CKD HGB USE SMARTSET 82936 03/15/202503/15, 03/15/2024, 03/02/2024, Additional history exists TSH [...] encounter Medical Devices Implanted Type Area Engineering Program Analyst Device Identifier Shelf Expiration Date Model / Serial / Lot Cath Thermodilution 6fr - [id number] Implanted:Qty: 1 on 01/24/2023 [place] Wilbur Rivera [place] [facility] [employer] TERE [id number] 10/15/2024 [id number] / / [id number] Clip Delivery Sytem G4 Xt - [id number] Implanted:Qty: 1 on 03/10/2023 at [facility] Bioapter [id number] 04/15/2023 [id number] T / / [id number] Clip Delivery Sytem G4 Xtw - [id number] Implanted:Qty: 1 on 03/10/2023 at [facility] [employer] [id number] 12/06/2023 [id number] TW / / [id number] Mirtaclip G4 - [id number] Implanted:Qty: 1 on 03/10/2023 at [facility] [employer] 11/19/2023 [id number] / / [id number] Device Watchman Flx 31mm - [id number] Implanted:Qty: 1 on 07/31/2023 by Wilbur Rivera MD at [facility] [employer]de[employer]on : INTRV CARD [id number] 12/02/2025 [id number] / / [id number] documented as of this encounter Visit Diagnoses Diagnosis Compression fracture of T12 vertebra, initial encounter ([facility])- Primary Diarrhea, unspecified type History of diverticulitis documented in this encounter Advance Directives Documents on File Type Date Recorded Patient Typesetters Printer Expl anation Advance Directives and Living Will 11/29/2022 ADVANCE DIRECTIVE / LIVING WILL Power of [place] 11/29/2022 POWER OF A TTORNEY Advance Directives and Living Will 10/24/2014 ADVANCE DIRECTIVE / LIVING WILL Power of [place] 10/24/2014 POWER OF A TTORNEY * Full [...] the patient have Health Care Power of [place]? No * No Code Date Activated Date [...] Agents on File Name Relationship Healthcare Agent [facility] p Communication [facility] Adult Child Health Care Frieda t (per Health Care Power of Cota document) Care Teams District Court Administrator Relationship Specialty Start Date End Date Grey Calvo DO [address] [place] [address] PCP - General Internal Medicine 02/06/24 documented as of this encounter
--- OUTSIDE RECORDS SUMMARY | 2024-03-21 01:01 | External Medical Summary | Summary of Care ---
Author Name Unknown Organization [facility] Address [address] [place] [address] Phone [phone] Care Team Providers Care Radiographer Angiogram Name Role Phone Grey Calvo DO Primary Care Provider [phone] Reason for Visit * Reason Onset Date Comments Medication Question 03/16/2024 Encounter Details Date Type Department Care Team (Late st Contact Info) Description 03/16/2024 Telephone Family Practice 65 [facility] [address] [place] [address] Grey Calvo DO [address] [place] [address] Medication Question Allergies Active Allergy [...] as of this encounter (statuses as of 03/16/2024) Medications Medication Sig Dispensed Refills Start Date End Date Status Endomondo w/Device KitIndications:Type 2 diabetes mellitus with hemoglobin [...] Wheezing. 15 g 12 06/13/2022 Active OneTouch VerEchopass Corporation In Vitro Strip (Glucose Blood) Test blood sugars up to 2 times a day E11.9 200 Strip 3 12/20/2022 Active Atorvastatin Calcium 20 MG Oral Tablet (Lipitor)Indication s:PVD (peripheral vascular disease) ([facility]),Type 2 diabetes mellitus with stage 3a chronic kidney disease and hypertension ([facility]) TAKE ONE TABLET BY MOUTH EVERY DAY DIRECTED 100 Tablet 3 03/31/2023 Active Ipratropium [place] 0.03 % Nasal Solution (Atrovent)Indicatio ns:Chronic rhinitis Administer 2 Sprays into nostril in the morning and 2 Sprays before bedtime. 90 mL 3 04/01/2023 Active Allopurinol 300 MG Oral Tablet (Zyloprim) Take 1 Tablet by mouth at bedtime. 90 Tablet 3 05/16/2023 Active Tiotropium [place]-Olodaterol 2.5-2.5 MCG/ACT Inhalation Aerosol Solution (Stiolto Respimat) [...] (Demadex)Indication s:Chronic diastolic CHF (congestive heart failure) ([facility]) Take 2 Tablets by mouth in the morning. 200 Tablet 3 02/24/2024 Active Apixaban 2.5 MG Oral Tablet (Eliquis)Indication s:Paroxysmal atrial fibrillation ([facility]) Take 1 Tablet by mouth in the morning and 1 Tablet before bedtime. 60 Tablet 2 03/09/2024 Active oxyCODONE HCl 5 MG Oral Tablet (Oxy IR)Indications:[facility] ed fracture of multiple ribs [...] s:Compression fracture of T12 vertebra, initial encounter ([facility]) Administer 1 spray into 1 nostril for suspected opioid overdose. Seek immediate medical attention. [email or web address]://[email or web address] [email or web address]? [email or web address] 1 Each 3 03/16/2024 4 Active fentaNYL 12 MCG/HR Transdermal Patch 72 HourIndications:Com pression fracture of T12 vertebra, initial encounter ([facility]) Place 1 Patch over 72 hours topically on the skin every 3 days. For pain control. 10 Patch 03/16/2024 Active fentaNYL 12 MCG/HR Transdermal Patch 72 HourIndications:Com pression fracture of T12 vertebra, initial encounter ([facility]) Place 1 Patch over 72 hours topically on the skin every 3 days. For pain control. 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 & Plan: Now just [...] as of this encounter (statuses as of 03/16/2024) Resolved Problems Problem Noted Date Diagnosed Date [...] as of this encounter (statuses as of 03/16/2024) Immunizations Name Administration Dates Next Due COVID-19 mRNA, LNP-s, No Pre serve, 2-Dose Series (Moderna) 06/23/2021,10/25/2020,09/28/2020 COVID-19, LNP-s, No Preserve , Larry-sucrose, Ages 12+ (Pfizer) 04/09/2022 COVID-19, MRNA-LNP, 23-24, P F, 30 MCG/0.3 mL, 12 YRS AND ABOVE, IM ([employer]) 06/09/2023 Covid-19, Mrna, Lnp-s, Pf, B ivalent, 30 Mcg, IM, 12 yrs and above ([employer]) 09/10/2022 HEP A - Hepatitis A (Adult [...] or do you have serious difficulty hearing? No-[place] can hear w/ hearing aid 03/07/2023 Are [...] to abhishek before using duragesic patch Call [facility] [phone] * Addendum Note - Grey Calvo DO - 03/16/2024 1:21 PM EDTAddended by: GREY CALVO on: 03/16/2024 01:21 PM Modules accepted: Orders * Addendum Note - Herminia Batista [facility] - 03/16/2024 12:44 PM EDT Addended by: HERMINIA BATISTA on: 03/16/2024 12:44 PM Modules accepted: Orders * Telephone Encounter - Herminia Batista [facility] - 03/16/2024 12:43 PM EDT Pharmacist called back - their Fentanyl is , but [facility] has it. Need to send a new script over there. Pended to PCP. Herminia Patel, Nelson D, BCACP Clinical Pharmacist [address] - [facility] 03/16/2024, 12:44 PM Ph. [phone] * Telephone Encounter - Herminia Batista [facility] - 03/16/2024 11:34 AM EDT Spoke to pharmacistJose, at [facility] and communicated recent oxycodone dose and PCP confirmation of fentanyl. Herminia Patel, Pharm D, BCACP Clinical Pharmacist [address] - [facility] 03/16/2024, 11:34 AM Ph. [phone] * Telephone Encounter - Grey Calvo DO - 03/16/2024 11:17 AM EDT Fentanyl patch 12.5 mcg dose is OK Patient unable to get out of bed due to severe back pain from vertebral fracture. Naloxone sent to pharmacy. * Telephone Encounter - Herminia Batista [facility] - 03/16/2024 11:10 AM EDT [...] - 03/16/2024 10:47 AM EDT Jose from [facility] in [facility] left a voicemail in regards to the Fentanyl prescription that they received. He needs to know if patient has taken any other opiods. He didn't see it on the PDMP. Please call him back. Thanks. documented in this encounter Plan of Treatment Upcoming Encounters Date Type Department Care Team (Late st Contact Info) Description 03/17/2024 9:00 AM EDT Scheduled Telephone [facility], [facility] [address] [place] [address] [facility], [facility] [address] [place] [address] 03/18/2024 3:30 PM EDT Telemedicine Neurosurgery, [place] [address] [place] [address] Masismo Key MD [address] [place] [address] 03/25/2024 8:30 AM EDT Office Visit Hematology/Oncolog y [facility] [address] [place] [address] Nereyda Metz CRNP [address] [place] [address] 03/30/2024 11:20 AM EDT Office Visit Family Practice 65 [facility] [place] 293 [facility] [place] [address] Grey Calvo, 293 [place] [address] 04/01/2024 11:00 AM EDT Home Visit [facility], [facility] [address] [place] [address] Michelle Hurt, RN 132 [facility] [place] [address] 04/05/2024 11:00 AM EDT Imaging Vascular Lab, [facility] 2nd [facility] 132 [facility] [place] [address] 04/14/2024 10:50 AM EDT Office Visit Vascular Surgery, [facility] [place] [address] Aj Sahni MD [address] [place] [address] 04/20/2024 3:40 PM EDT Office Visit Family [facility] [address], [place] 293 [facility], [place] [address] Grey Calvo, DO [address] [facility], [place] [address] 05/21/2024 1:14 PM EDT Hospital Encounter OR [facility], Operating Room, [facility] - 4th Floor [address] [place] [address] Jana Vieira, DO [address] [place] [address] 05/21/2024 1:14 PM EDT - 05/21/2024 1:59 PM EDT Surgery OR [facility], Operating Room, [facility] - 4th Floor [address] [place] [address] Jana Vieira, DO [address] [place] [address] COLONOSCOPY FLEXIBLE PROXIMAL DIAGNOSTIC 06/03/2024 2:15 PM EDT Office Visit Ophthalmology, [facility] 132 [facility] [place] [address] Wilbur Benavides, DO [facility] [place] [address] 07/01/2024 2:30 PM EST Office Visit Gastroenterology, [facility] 132 [facility] [place] [address] Lacy Ronquillo CRNP [address] [place] [address] 08/09/2024 1:00 PM EST Nurse Only Ancillary [address], [place] 293 [facility] [place] [address] College, Nurse Annual Wellness Visit [address] [facility] 293 [facility] [address] Scheduled Procedures Name Priority Associated Diagnoses Date/Ti [...] COPD 07/31/2024 07/31/2023 CKD PHOS USE SMARTSET 49669 08/19/20242 01/2023, 05/01/2022, 04/03/2022, Additional history exists Diabetic Foot Exam 09/15/2024 09/15/2023, 0 10/01/2022, 10/26/2021, Additional history exists GFR 09/15/2024 03/15/2024, 07/0 04/2024, 02/24/2024, Additional history exists Depression Monitoring 09/29/2024 09/29/2023 Albumin/Creatinine Ratio 12/08/2024 024, 02/21/2023, 05/01/2022, Additional history exists CKD HGB USE SMARTSET 20212 03/15/202503/15, 03/15/2024, 03/02/2024, Additional history exists TSH [...] this encounter Medical Devices Implanted Type Area Problem Manager Device Identifier Shelf Expiration Date Model / Serial / Lot Cath Thermodilution 6fr - [id number] Implanted:Qty: 1 on 01/24/2023 by Wilbur Rivera MD at [facility] [employer] TERE [id number] 10/15/2024 [id number] / / [id number] Clip Delivery Sytem G4 Xt - [id number] Implanted:Qty: 1 on 03/10/2023 at [facility] [employer] [id number] 04/15/2023 [id number] T / / [id number] Clip Delivery Sytem G4 Xtw - [id number] Implanted:Qty: 1 on 03/10/2023 at [facility] [employer] [id number] 12/06/2023 [id number] TW / / [id number] Mirtaclip G4 - [id number] Implanted:Qty: 1 on 03/10/2023 at [facility] [facility] [employer] 11/19/2023 [id number] / / [id number] Device Watchman Flx 31mm - [id number] Implanted:Qty: 1 on 07/31/2023 by Wilbur Rivera MD at [facility] [place] [employer] : INTRV CARD [id number] 12/02/2025 [id number] / / [id number] documented as of this encounter Visit Diagnoses Diagnosis Compression fracture of T12 vertebra, initial encounter ([facility])- Primary Diarrhea, unspecified type History of diverticulitis documented in this encounter Advance Directives Documents on File Type Date Recorded Patient Heel Seat Flap Stapler Expl anation Advance Directives and Living Will 11/29/2022 ADVANCE DIRECTIVE / LIVING WILL Power of Lavatory Attendant 11/29/2022 POWER OF A TTORNEY Advance Directives and Living Will 10/24/2014 ADVANCE DIRECTIVE / LIVING WILL Power of Lavatory Attendant 10/24/2014 POWER OF A TTORNEY * Full [...] the patient have Health Care Power of Lavatory Attendant? No * No Code Date Activated Date [...] Agen t (per Health Care Power of Lavatory Attendant document) Care Teams Radiographer Angiogram Relationship Specialty Start Date End Date Grey Calvo DO [address] [place] [address] PCP - General Internal Medicine 02/06/24 documented as of this encounter
--- OUTSIDE RECORDS SUMMARY | 2024-03-21 01:01 | External Medical Summary | Summary of Care ---
Author Name Unknown Organization [facility] Address [address] [place] [address] Phone [phone] Care Team Providers Care Manager Programming Name Role Phone Grey Calvo DO Primary Care Provider [phone] Reason for Visit * Reason Onset Date Comments Medication Question 03/16/2024 Encounter Details Date Type Department Care Team (Late st Contact Info) Description 03/16/2024 Telephone Family Practice [facility] [address] [place] [address] Grey Calvo DO [address] [place] [address] Medication Question Allergies Active Allergy [...] Dispensed Refills Start Date End Date Status Machina w/Device KitIndications:Type 2 diabetes mellitus with hemoglobin [...] Wheezing. 15 g 12 06/13/2022 Active OneTouch Ver[employer] Systems In Vitro Strip (Glucose Blood) Test [...] DIRECTED 100 Tablet 3 03/31/2023 Active Ipratropium [place] 0.03 % Nasal Solution (Atrovent)Indicatio ns:Chronic rhinitis Administer 2 Sprays into nostril in the morning and 2 Sprays before bedtime. 90 mL 3 04/01/2023 Active Allopurinol 300 MG Oral Tablet (Zyloprim) Take 1 Tablet by mouth at bedtime. 90 Tablet 3 05/16/2023 Active Tiotropium [place]-Olodaterol 2.5-2.5 MCG/ACT Inhalation Aerosol Solution (Stiolto [...] s:Chronic diastolic CHF (congestive heart failure) ([facility]) Take 2 Tablets by mouth in the morning. 200 Tablet 3 02/24/2024 Active Apixaban 2.5 MG Oral Tablet (Eliquis)Indication s:Paroxysmal atrial fibrillation ([facility]) Take 1 Tablet by mouth in the morning and 1 Tablet before bedtime. 60 Tablet 2 03/09/2024 Active oxyCODONE HCl 5 MG Oral Tablet (Oxy IR)Indications:[facility] ed fracture of multiple ribs of left [...] fracture of T12 vertebra, initial encounter ([facility]) Administer 1 spray into 1 nostril for suspected opioid overdose. Seek immediate medical attention. [email or web address] Content [email or web address]? [email or web address] 1 Each 3 03/16/2024 4 Active fentaNYL 12 MCG/HR Transdermal Patch 72 HourIndications:Com pression fracture of T12 vertebra, initial encounter ([facility]) Place 1 Patch over 72 hours topically on the skin every 3 days. For pain control. 10 Patch 03/16/2024 Active fentaNYL 12 MCG/HR Transdermal Patch 72 HourIndications:Com pression fracture of T12 vertebra, initial encounter ([facility]) Place 1 Patch over 72 hours topically on the skin every 3 days. For pain control. 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 No-ROBINSON can hear w/ hearing aid 03/07/2023 Are [...] to abhishek before using duragesic patch Call [facility] [phone] * Addendum Note - Grey Calvo DO - 03/16/2024 1:21 PM EDTAddended by: GREY CALVO on: 03/16/2024 01:21 PM Modules accepted: Orders * Addendum Note - Herminia Batista [facility] - 03/16/2024 12:44 PM EDT Addended by: HERMINIA BATISTA on: 03/16/2024 12:44 PM Modules accepted: Orders * Telephone Encounter - Herminia Batista [facility] - 03/16/2024 12:43 PM EDT Pharmacist called back - their Fentanyl is , but [facility] has it. Need to send a new script over there. Pended to PCP. Herminia Patel, Nelson D, BCACP Clinical Pharmacist [address] - [facility] 03/16/2024, 12:44 PM Ph. [phone] * Telephone Encounter - Herminia Batista [facility] - 03/16/2024 11:34 AM EDT Spoke to pharmacistJose, at [facility] and communicated recent oxycodone dose and PCP confirmation of fentanyl. Nelson Calloway D, [facility] Clinical Pharmacist [address] - Medication Therapy [facility] 03/16/2024, 11:34 AM Ph. [phone] * Telephone Encounter - Grey Calvo DO - 03/16/2024 11:17 AM EDT Fentanyl patch 12.5 mcg dose is OK Patient unable to get out of bed due to severe back pain from vertebral fracture. Naloxone sent to pharmacy. * Telephone Encounter - Herminia Batista [facility] - 03/16/2024 11:10 AM EDT Spoke to [...] - 03/16/2024 10:47 AM EDT Jose from [facility] in [facility] left a voicemail in regards to the Fentanyl prescription that they received. He needs to know if patient has taken any other opiods. He didn't see it on the PDMP. Please call him back. Thanks. documented in this encounter Plan of Treatment Upcoming Encounters Date Type Department Care Team (Late st Contact Info) Description 03/17/2024 9:00 AM EDT Scheduled Telephone isinger at Home, [facility] [address] [place] [address] Coordinator, [facility] 132 [facility] [place] [address] 03/18/2024 3:30 PM EDT Telemedicine Neurosurgery, [place] [address] [place] [address] Massimo Key MD [address] [place] [address] 03/25/2024 8:30 AM EDT Office Visit Hematology/Oncolog y [facility] [address] [place] [address] Nereyda Metz, JESS 400 [facility] [place] [address] 03/30/2024 11:20 AM EDT Office Visit Family Practice [address] [place] [address] [address] [place] [address] Grey Calvo DO [address] [place] [address] 04/01/2024 11:00 AM EDT Home Visit [facility] [place], [facility] 132 [facility] [place] [address] Michelle Hurt, RN 132 [facility] [address] 04/05/2024 11:00 AM EDT Imaging [facility] 132 [facility] [place] [address] 04/14/2024 10:50 AM EDT Office Visit Vascular Surgery, [facility] 132 [facility] [place] [address] Aj Sahni MD [address] [place] [address] 04/20/2024 3:40 PM EDT Office Visit Family Practice [address] [place] [address] [address] [place] [address] Grey Calvo, DO 293 [facility], [place] [address] 05/21/2024 1:14 PM EDT Hospital Encounter OR [facility], Operating Room, [facility] - 4th Floor [address] [place] [address] Jana Vieira, DO [address] [facility] [place] [address] 05/21/2024 1:14 PM EDT - 05/21/2024 1:59 PM EDT Surgery OR [facility], Operating Room, [facility] - 4th Floor [address] [place] [address] Jana Vieira, DO [address] [place] [address] COLONOSCOPY FLEXIBLE PROXIMAL DIAGNOSTIC 06/03/2024 2:15 PM EDT Office Visit Ophthalmology, [facility] 132 [facility] [place] [address] Wilbur Benavides, DO [address] [place] [address] 07/01/2024 2:30 PM EST Office Visit Gastroenterology, [facility] 132 [facility] [place] [address] Lacy Ronquillo CRNP [facility] [place] [address] 08/09/2024 1:00 PM EST Nurse Only Ancillary [facility] 293 [facility], [place] [address] College, Nurse Annual Wellness Visit 65 [address] [address] Scheduled Procedures Name Priority Associated Diagnoses Date/Ti [...] COPD 07/31/2024 07/31/2023 CKD PHOS USE SMARTSET 00788 08/19/202407/26, 05/01/2022, 04/03/2022, Additional history exists Diabetic Foot Exam 09/15/2024 09/15/2023, 0 10/01/2022, 10/26/2021, Additional history exists GFR 09/15/2024 03/15/2024, 07/0 04/2024, 02/24/2024, Additional history exists Depression Monitoring 09/29/2024 09/29/2023 Albumin/Creatinine Ratio 12/08/2024 024, 02/21/2023, 05/01/2022, Additional history exists CKD HGB USE SMARTSET 72325 03/15/202503/15, 03/15/2024, 03/02/2024, Additional history exists TSH [...] this encounter Medical Devices Implanted Type Area [employer] Player Device Identifier Shelf Expiration Date Model / Serial / Lot Cath Thermodilution 6fr - [id number] Implanted:Qty: 1 on 01/24/2023 by Wilbur Rivera MD at [facility] [place] [employer]ERE [id number] 10/15/2024 [id number] / / [id number] Clip Delivery Sytem G4 Xt - [id number] Implanted:Qty: 1 on 03/10/2023 at [facility] [id number] 04/15/2023 [id number] T / / [id number] Clip Delivery Sytem G4 Xtw - [id number] Implanted:Qty: 1 on 03/10/2023 at [facility] [id number] 12/06/2023 [id number] / / [id number] Mirtaclip G4 - [id number] Implanted:Qty: 1 on 03/10/2023 at [facility] [employer] [facility] 11/19/2023 [id number] / / [id number] Device Watchman Flx 31mm - [id number] Implanted:Qty: 1 on 07/31/2023 by Wilbur Rivera MD at [facility] : INTRV CARD [id number] 12/02/2025 [id number] / [id number] documented as of this encounter Visit Diagnoses Diagnosis Compression fracture of T12 vertebra, initial encounter (HCC)- Primary Diarrhea, unspecified type History of diverticulitis documented in this encounter Advance Directives Documents on File Type Date Recorded 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 No * No Code Date Activated Date [...] Agen t (per Health Care Power of Casting And Pasting Supervisor document) Care Teams Manager Programming Relationship Specialty Start Date End Date Grey Calvo DO [address] [place] [address] PCP - General Internal Medicine 02/06/24 documented as of this encounter
--- OUTSIDE RECORDS SUMMARY | 2024-03-21 01:01 | External Medical Summary | Summary of Care ---
Author Name Unknown Organization [facility] Address [address] [place] [address] Phone [phone] Care Team Providers Care Napper Fixer Name Role Phone Grey Calvo DO Primary Care Provider [phone] Reason for Visit * Reason Onset Date Comments Medication Question 03/16/2024 Encounter Details Date Type Department Care Team (Late st Contact Info) Description 03/16/2024 Telephone Family Practice 65 [facility] [address] [place] [address] Grey Calvo DO [address] [place] [address] Medication Question Allergies Active Allergy Reactions Criticality Noted Date Comments Azithromycin Other (Please comment) 12/04/2021 QTC prolongation at [facility] Celecoxib Hives,Rash High 03/24/2013 Other reaction(s): Rash/Hives/Itching. [...] Dispensed Refills Start Date End Date Status SkyStem w/Device KitIndications:Type 2 diabetes mellitus with hemoglobin [...] Wheezing. 15 g 12 06/13/2022 Active OneTouch VerPaga In Vitro Strip (Glucose Blood) Test blood [...] 100 Tablet 3 03/31/2023 Active Ipratropium [place] 0.03 % Nasal Solution (Atrovent)Indicatio ns:Chronic rhinitis Administer 2 Sprays into nostril in the morning and 2 Sprays before bedtime. 90 mL 3 04/01/2023 Active Allopurinol 300 MG Oral Tablet (Zyloprim) Take 1 Tablet by mouth at bedtime. 90 Tablet 3 05/16/2023 Active Tiotropium [place]-Olodaterol 2.5-2.5 MCG/ACT Inhalation Aerosol Solution (Stiolto Respimat) [...] (Demadex)Indication s:Chronic diastolic CHF (congestive heart failure) ([facility]) Take 2 Tablets by mouth in the morning. 200 Tablet 3 02/24/2024 Active Apixaban 2.5 MG Oral Tablet (Eliquis)Indication s:Paroxysmal atrial fibrillation ([facility]) Take 1 Tablet by mouth in the morning and 1 Tablet before bedtime. 60 Tablet 2 03/09/2024 Active oxyCODONE HCl 5 MG Oral Tablet (Oxy IR)Indications:[facility] ed fracture of multiple ribs of left [...] opioid overdose. Seek immediate medical attention. [email or web address]? [email or web address] 1 Each 3 03/16/2024 4 Active fentaNYL [...] Plan: Increased oxy from 2.5mg to 5mg [id number] prn Ortho spine ref, ?kyphoplasty Constipation 03/12/2024 [...] mitral valve clip implantation 03/06/2023 Atherosclerosis of 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 02/13/2023 Last Assessment & Plan: Continue statin, sotalol. 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 No-KIVALINA can hear w/ hearing aid 03/07/2023 Are [...] Orders * Telephone Encounter - Herminia Batista [facility] - 03/16/2024 12:43 PM EDT Pharmacist called back - their Fentanyl is , but [facility] has it. Need to send a new script over there. Pended to PCP. Nelson Calloway, [facility] Clinical Pharmacist [address] - Medication Therapy Disease Management Clinic 03/16/2024, 12:44 PM Ph. [phone] * Telephone Encounter - Herminia Batista [facility] - 03/16/2024 11:34 AM EDT Spoke to pharmacistJose, at [facility] and communicated recent oxycodone dose and PCP confirmation of fentanyl. Nelson Calloway, [facility] Clinical Pharmacist [address] - Medication Therapy [facility] 03/16/2024, 11:34 AM Ph. [phone] * Telephone Encounter - Grey Calvo DO - 03/16/2024 11:17 AM EDT Fentanyl patch 12.5 mcg dose is OK Patient unable to get out of bed due to severe back pain from vertebral fracture. Naloxone sent to pharmacy. * Telephone Encounter - Herminia Batista [facility] - 03/16/2024 11:10 AM EDT [...] - 03/16/2024 10:47 AM EDT Jose from [facility] in [facility] left a voicemail in regards to the Fentanyl prescription that they received. He needs to know if patient has taken any other opiods. He didn't see it on the PDMP. Please call him back. Thanks. documented in this encounter Plan of Treatment Upcoming Encounters Date Type Department Care Team (Late st Contact Info) Description 03/17/2024 9:00 AM EDT Scheduled Telephone [facility] [address] [place] [address] Coordinator, [facility] [address] [place] [address] 03/18/2024 3:30 PM EDT Telemedicine [facility] [address] [place] [address] Massimo Key MD [address] [place] [address] 03/25/2024 8:30 AM EDT Office Visit Hematology/Oncolog y [facility] [address] [place] [address] Nereyda Metz CRNP 400 [facility] [place] [address] 03/30/2024 11:20 AM EDT Office Visit Family Practice 65 [facility] 293 [place] [address] Grey Calvo, 293 [facility], [place] [address] 04/01/2024 11:00 AM EDT Home Visit [facility] 132 [facility] [place] [address] Michelle Hurt RN 132 [place] [address] 04/05/2024 11:00 AM EDT Imaging Vascular Lab, [facility] [place] [address] 04/14/2024 10:50 AM EDT Office Visit Vascular Surgery, [facility] 132 [place] [address] Aj Sahni MD [address] [place] [address] 04/20/2024 3:40 PM EDT Office Visit Family Practice 65 [facility] 293 [facility], [place] [address] Grey Calvo, 293 [facility] [address] 05/21/2024 1:14 PM EDT Hospital Encounter OR [facility], Operating Room, [facility] - 4th Floor 400 [facility] [place] [address] Jana Vieira, DO [address] [place] [address] 05/21/2024 1:14 PM EDT - 05/21/2024 1:59 PM EDT Surgery OR [facility], Operating Room, [facility] - 4th Floor 400 [facility] [place] [address] Jana Vieira, DO [address] [place] [address] COLONOSCOPY FLEXIBLE PROXIMAL DIAGNOSTIC 06/03/2024 2:15 PM EDT Office Visit Ophthalmology, [facility] 132 [facility] [place] [address] Wilbur Benavides, DO [address] [place] [address] 07/01/2024 2:30 PM EST Office Visit Gastroenterology, [facility] 132 [facility] [place] [address] Lacy Ronquillo CRNP 132 [facility] [place] [address] 08/09/2024 1:00 PM EST Nurse Only Ancillary 65 [facility] 293 [facility] [address] College, Nurse Annual Wellness Visit [address] [place] [address] Scheduled Procedures Name Priority Associated Diagnoses Date/Ti [...] COPD 07/31/2024 07/31/2023 CKD PHOS USE SMARTSET 37883 08/19/202407/26, 05/01/2022, 04/03/2022, Additional history exists Diabetic Foot Exam 09/15/2024 09/15/2023, 0 10/01/2022, 10/26/2021, Additional history exists GFR 09/15/2024 03/15/2024, 07/0 04/2024, 02/24/2024, Additional history exists Depression Monitoring 09/29/2024 09/29/2023 Albumin/Creatinine Ratio 12/08/2024 024, 02/21/2023, 05/01/2022, Additional history exists CKD HGB USE SMARTSET 21321 03/15/202503/15, 03/15/2024, 03/02/2024, Additional history exists TSH [...] this encounter Medical Devices Implanted Type Area Silverware Etcher Device Identifier Shelf Expiration Date Model / Serial / Lot Cath Thermodilution 6fr - [id number] Implanted:Qty: 1 on 01/24/2023 by Wilbur Rivera MD at [facility] [employer] [employer] TERE [id number] 10/15/2024 [id number] / / [id number] Clip Delivery Sytem G4 Xt - [id number] Implanted:Qty: 1 on 03/10/2023 at [facility] [place] [employer] [id number] 04/15/2023 [id number] T / / [id number] Clip Delivery Sytem G4 Xtw - [id number] Implanted:Qty: 1 on 03/10/2023 at [facility] [employer] [id number] 12/06/2023 [id number] TW / / [id number] Mirtaclip G4 - [id number] Implanted:Qty: 1 on 03/10/2023 at [facility] [place] [employer] 11/19/2023 [id number] / / [id number] Device Watchman Flx 31mm - [id number] Implanted:Qty: 1 on 07/31/2023 by Wilbur Rivera MD at [facility] [employer] : INTRV CARD [id number] 12/02/2025 [id number] documented as of this encounter Visit Diagnoses Diagnosis Compression fracture of T12 vertebra, initial encounter (HCC)- Primary Diarrhea, unspecified type History of diverticulitis documented in this encounter Advance Directives Documents on File Type Date Recorded Patient Settlement Clerk Expl anation Advance Directives and Living Will 11/29/2022 ADVANCE DIRECTIVE / LIVING WILL Power of Ham Trimmer 11/29/2022 POWER OF A TTORNEY Advance Directives and Living Will 10/24/2014 ADVANCE DIRECTIVE / LIVING WILL Power of Ham Trimmer 10/24/2014 POWER OF A TTORNEY * Full [...] the patient have Health Care Power of Ham Trimmer? No * No Code Date Activated Date [...] Agen t (per Health Care Power of Ham Trimmer document) Care Teams Napper Fixer Relationship Specialty Start Date End Date Grey Calvo DO [address] [place] [address] PCP - General Internal Medicine 02/06/24 documented as of this encounter
--- OUTSIDE RECORDS SUMMARY | 2024-03-21 01:02 | External Medical Summary ---
Author Name Unknown Address Unknown Organization K01:LABORATORY C - [address] [facility] [address] Laboratory Report Ordering Provider Test Date Status ANTONIO EDMONDS 03/15/2024 17:09:57 Final Observation Date Value Abnormality Reference (Units ) Status T4, Free 03/15/2024 17:09:57 1.0 0.9-1.7 (n g/dL) Final Performing Location [facility] [address] [facility] [address]
--- OUTSIDE RECORDS SUMMARY | 2024-03-21 01:02 | External Medical Summary ---
Author Name Unknown Address Unknown Organization K01:[facility] [place] [address] [facility] [address] Laboratory Report Ordering Provider Test Date Status ANTONIO EDMONDS 03/15/2024 17:09:57 Final Observation Date Value Abnormality Reference (Units ) Status Ferritin 03/15/2024 17:09:57 575 Above high normal 13 -150 (ng/mL) Final Postmenopausal women have hi gher ferritin levels than pre-menopausal women. The above reference interval is based on pre-menopausal women. Performing Location [facility] [address] [facility] [address]
--- OUTSIDE RECORDS SUMMARY | 2024-03-21 01:02 | External Medical Summary ---
Author Name Unknown Address Unknown Organization K01:[facility] [place] [address] [facility] [address] Laboratory Report Ordering Provider Test Date Status GREYANTONIO 03/15/2024 17:09:57 Final Observation Date Value Abnormality Reference (Units ) Status TSH 03/15/2024 17:09:57 24.80 Above high normal 0. 27-4.20 (uIU/mL) Final Performing Location [facility] [place] [address] [facility] [address]
--- OUTSIDE RECORDS SUMMARY | 2024-03-21 01:02 | External Medical Summary | Summary of Care ---
Author Name Unknown Organization [facility] Address [address] [place] [address] Phone [phone] Care Team Providers Care Reconciliation Coordinator Name Role Phone Florentin Calvo DO Primary Care Provider [phone] Reason for Visit * Reason Onset Date Comments Medication Question 03/16/2024 Encounter Details Date Type Department Care Team (Late st Contact Info) Description 03/16/2024 Telephone Family Practice 65 [facility] [address] [place] [address] Florentin Calvo DO [address] [place] [address] Medication Question Allergies Active Allergy [...] Dispensed Refills Start Date End Date Status [facility] w/Device KitIndications:Type 2 diabetes mellitus with hemoglobin A1c goal of less than 7.0% ([facility]) Use up to 1 times a [...] Wheezing. 15 g 12 06/13/2022 Active OneTouch VerLucky Ant In Vitro Strip (Glucose Blood) Test blood sugars up to 2 times a day E11.9 200 Strip 3 12/20/2022 Active Atorvastatin Calcium 20 MG Oral Tablet (Lipitor)Indication s:PVD (peripheral vascular disease) ([facility]),Type 2 diabetes mellitus with stage 3a chronic kidney disease and hypertension ([facility]) TAKE ONE TABLET BY MOUTH EVERY DAY DIRECTED 100 Tablet 3 03/31/2023 Active Ipratropium [place] 0.03 % Nasal Solution (Atrovent)Indicatio ns:Chronic rhinitis Administer 2 Sprays into nostril in the morning and 2 Sprays before bedtime. 90 mL 3 04/01/2023 Active Allopurinol 300 MG Oral Tablet (Zyloprim) Take 1 Tablet by mouth at bedtime. 90 Tablet 3 05/16/2023 Active Tiotropium [place]-Olodaterol 2.5-2.5 MCG/ACT Inhalation Aerosol Solution (Stiolto Respimat) [...] s:Chronic diastolic CHF (congestive heart failure) ([facility]) Take 2 Tablets by mouth in the morning. 200 Tablet 3 02/24/2024 Active Apixaban 2.5 MG Oral Tablet (Eliquis)Indication s:Paroxysmal atrial fibrillation ([facility]) Take 1 Tablet by mouth in the morning and 1 Tablet before bedtime. 60 Tablet 2 03/09/2024 Active oxyCODONE HCl 5 MG Oral Tablet (Oxy IR)Indications:[facility] ed fracture of multiple [...] fracture of T12 vertebra, initial encounter ([facility]) Administer 1 spray into 1 nostril for suspected opioid overdose. Seek immediate medical attention. [email or web address]? [email or web address] 1 Each 3 03/16/2024 4 Active fentaNYL 12 MCG/HR Transdermal Patch 72 HourIndications:Com pression fracture of T12 vertebra, initial encounter ([facility]) Place 1 Patch over 72 hours topically on the skin every 3 days. For pain control. 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 No-KLAWOCK can hear w/ hearing aid 03/07/2023 Are [...] back - their Fentanyl is , but [facility] has it. Need to send a new script over there. Pended to PCP. Herminia Patel, Pharm D, BCACP Clinical Pharmacist [address] [facility] 03/16/2024, 12:44 PM Ph. [phone] * Telephone Encounter - Herminia Batista RP - 03/16/2024 11:34 AM EDT Spoke to pharmacist, Jose, at [facility] and communicated recent oxycodone dose and PCP confirmation of fentanyl. Herminia Patel, Pharm D, BCACP Clinical Pharmacist [address] [facility] 03/16/2024, 11:34 AM Ph. [phone] * Telephone Encounter - Florentin Calvo DO - 03/16/2024 11:17 AM EDT Fentanyl patch 12.5 mcg dose is OK Patient unable to get out of bed due to severe back pain from vertebral fracture. Naloxone sent to pharmacy. * Telephone Encounter - Herminia Batista [facility] - 03/16/2024 11:10 AM EDT [...] 03/16/2024 10:47 AM EDT Jose from [facility] in [employer] left a voicemail in regards to the Fentanyl prescription that they received. He needs to know if patient has taken any other opiods. He didn't see it on the PDMP. Please call him back. Thanks. documented in this encounter Plan of Treatment Upcoming Encounters Date Type Department Care Team (Late st Contact Info) Description 03/17/2024 9:00 AM EDT Scheduled Telephone Matthiaser at [facility] [address] [facility] [address] Coordinator, [facility] 132 [facility] [place] [address] 03/18/2024 3:30 PM EDT Telemedicine [facility] [address] [place] [address] Massimo Key MD [address] [place] [address] 03/25/2024 8:30 AM EDT Office Visit Hematology/Oncolog y Jerri Zamora [place] 200 [facility] [place] [address] Nereyda Metz CRNP [facility] [place] [address] 03/30/2024 11:20 AM EDT Office Visit Family Practice [address] [place] [address] [facility] [phone] Florentin Calvo, DO 293 [place] [address] 04/01/2024 11:00 AM EDT Home Visit Matthiaser at Home, [facility] [address] [place] [address] [place] Hurt, RN [address] [place] [address] 04/05/2024 11:00 AM EDT Imaging Vascular Lab, [facility] [address] [place] [address] 04/14/2024 10:50 AM EDT Office Visit Vascular Surgery, [facility] [address] [place] [address] Aj Sahni MD [address] [place] [address] 04/20/2024 3:40 PM EDT Office Visit Family [address] 293 [place] [address] Florentin Calvo, DO 293 [place] [address] 05/21/2024 1:14 PM EDT Hospital Encounter OR [facility], Operating Room, [facility] - 4th Floor [address] [place] [place] [address] Jana Vieira, DO [address] [place] [address] 05/21/2024 1:14 PM EDT - 05/21/2024 1:59 PM EDT Surgery OR [facility], Operating Room, [facility] - 4th Floor [address] [place] [address] Jana Vieira, DO [address] [place] [address] COLONOSCOPY FLEXIBLE PROXIMAL DIAGNOSTIC 06/03/2024 2:15 PM EDT Office Visit Ophthalmology, [facility] [place] [address] Wilbur Benavides, DO [address] [place] [address] 07/01/2024 2:30 PM EST Office Visit Gastroenterology, [facility] [place] [address] Lacy Ronquillo CRNP [address] [place] [address] 08/09/2024 1:00 PM EST Nurse Only Ancillary 65 [facility] 293 [place] [address] College, Nurse Annual Wellness Visit [address], [place] [address] Scheduled Procedures Name Priority Associated Diagnoses Date/Ti [...] COPD 07/31/2024 07/31/2023 CKD PHOS USE SMARTSET 63795 08/19/202407/26, 05/01/2022, 04/03/2022, Additional history exists Diabetic Foot Exam 09/15/2024 09/15/2023, 0 10/01/2022, 10/26/2021, Additional history exists GFR 09/15/2024 03/15/2024, 07/0 04/2024, 02/24/2024, Additional history exists Depression Monitoring 09/29/2024 09/29/2023 Albumin/Creatinine Ratio 12/08/2024 024, 02/21/2023, 05/01/2022, Additional history exists CKD HGB USE SMARTSET 40234 03/15/202503/15, 03/15/2024, 03/02/2024, Additional history exists TSH [...] this encounter Medical Devices Implanted Type Area Qa Automation Architect Device Identifier Shelf Expiration Date Model / Serial / Lot Cath Thermodilution 6fr - [id number] Implanted:Qty: 1 on 01/24/2023 by Wilbur Rivera MD at [facility] [employer] [id number] 10/15/2024 [id number] / / [id number] Clip Delivery Sytem G4 Xt - [id number] Implanted:Qty: 1 on 03/10/2023 at [facility] [employer] [id number] 04/15/2023 [id number] T / / [id number] Clip Delivery Sytem G4 Xtw - [id number] Implanted:Qty: 1 on 03/10/2023 at [facility] [employer] [id number] 12/06/2023 [id number] / / [id number] Mirtaclip G4 - [id number] Implanted:Qty: 1 on 03/10/2023 at [facility] [employer] 11/19/2023 [id number] / / [id number] Device Watchman Flx 31mm - [id number] Implanted:Qty: 1 on 07/31/2023 by Wilbur Rivera MD at [facility] [employer] : INTRV CARD [id number] 12/02/2025 [id number] / / [id number] documented as of this encounter Visit Diagnoses Diagnosis Compression fracture of T12 vertebra, initial encounter ([facility])- Primary Diarrhea, unspecified type History of diverticulitis documented in this encounter Advance Directives Documents on File Type Date Recorded Patient Network Manager Expl anation Advance Directives and Living Will 11/29/2022 ADVANCE DIRECTIVE / LIVING WILL Power of Sound Effects Person 11/29/2022 POWER OF A TTORNEY Advance Directives and Living Will 10/24/2014 ADVANCE DIRECTIVE / LIVING WILL Power of Sound Effects Person 10/24/2014 POWER OF A TTORNEY * Full [...] the patient have Health Care Power of Sound Effects Person? No * No Code Date Activated Date [...] Name Relationship Healthcare Agent [facility] Communication Bright [facility]ak[facility] Adult Child Health Care Frieda t (per Health Care Power of Sound Effects Person document) Care Teams Reconciliation Coordinator Relationship Specialty Start Date End Date Florentin Calvo DO [address] [place] [address] PCP - General Internal Medicine 02/06/24 documented as of this encounter
--- OUTSIDE RECORDS SUMMARY | 2024-03-21 01:02 | External Medical Summary ---
Author Name Unknown Address Unknown Organization K01:[facility]ATORY [facility] [place] - [address] [facility] [address] Laboratory Report Ordering Provider Test Date Status ANTONIO EDMONDS 03/15/2024 17:09:57 Final Observation Date Value Abnormality Reference (Units ) Status Iron 03/15/2024 17:09:57 46 33-151 (ug /dL) Final Iron-binding capacity 03/15/2024 17:09:57 280 250-425 (ug/dL) Final Transferrin Sat % 03/15/2024 17:09:57 16 15 -55 (%) Final Performing Location [facility] [place] - [address] RubalcavaLos [facility] [address]
--- OUTSIDE RECORDS SUMMARY | 2024-03-21 01:02 | External Medical Summary | Summary of Care ---
Author Name Unknown Organization [facility] Address [address] [place] [address] Phone [phone] Care Team Providers Care Compliance Clerk Name Role Phone Florentin Calvo DO Primary Care Provider [phone] Reason for Visit * Reason Onset Date Comments Medication Question 03/16/2024 Encounter Details Date Type Department Care Team (Late st Contact Info) Description 03/16/2024 Telephone Family Practice 65 [facility] [address] [place] [address] Florentin Calvo DO [address] [place] [address] Medication Question Allergies Active Allergy Reactions Criticality Noted Date Comments Azithromycin Other (Please comment) 12/04/2021 QTC prolongation at [facility] Celecoxib Hives,Rash High 03/24/2013 [...] Refills Start Date End Date Status [employer] Verio w/Device KitIndications:Type 2 diabetes mellitus with [...] (Lipitor)Indications :PVD (peripheral vascular disease) ([facility]),Type 2 diabetes mellitus with stage 3a chronic kidney disease and hypertension ([facility]) TAKE ONE TABLET BY MOUTH EVERY DAY DIRECTED 100 Tablet 3 03/31/2023 Active Ipratropium [place] 0.03 % Nasal Solution (Atrovent)Indication s:Chronic rhinitis Administer 2 Sprays into nostril in the morning and 2 Sprays before bedtime. 90 mL 3 04/01/2023 Active Allopurinol 300 MG Oral Tablet (Zyloprim) Take 1 Tablet by mouth at bedtime. 90 Tablet 3 05/16/2023 Active Tiotropium [place]-Olodaterol 2.5-2.5 MCG/ACT Inhalation Aerosol Solution (Stiolto [...] (Demadex)Indications :Chronic diastolic CHF (congestive heart failure) ([facility]) Take 2 Tablets by mouth in the morning. 200 Tablet 3 02/24/2024 Active Apixaban 2.5 MG Oral Tablet (Eliquis)Indications :Paroxysmal atrial fibrillation ([facility]) Take 1 Tablet by mouth [...] of T12 vertebra, initial encounter ([facility]) Place 1 Patch over 72 hours topically on the skin every 3 days. For pain control. 10 Patch 03/15/2024 Active Naloxone HCl 4 MG/0.1ML NA LIQD FOR CAREGIVERIndications :Compression fracture of T12 vertebra, initial encounter ([facility]) Administer 1 spray into 1 nostril for suspected opioid overdose. Seek immediate medical attention. [email or web address] 1 Each 3 03/16/2024 03/17/2024 Active documented as of this encounter (statuses as of 03/16/2024) Active Problems Problem Noted Date Diagnosed Date Compression fracture of T12 vertebra 03/12/2024 Last Assessment & Plan: Increased oxy from 2.5mg to 5mg i3rhsca prn Ortho spine ref, ?kyphoplasty Constipation 03/12/2024 [...] mitral valve clip implantation 03/06/2023 Atherosclerosis of 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 02/13/2023 Last Assessment & Plan: Continue statin, sotalol. 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 No-PAMUNKEY can hear w/ hearing aid 03/07/2023 Are [...] Miscellaneous Notes * Telephone Encounter - Veronique Batista RPh - 03/16/2024 11:34 AM EDT Spoke to pharmacistJose, at [facility] and communicated recent oxycodone dose and PCP confirmation of fentanyl. Veronique Patel, Pharm D, BCACP Clinical Pharmacist [address] [facility] - [facility] 03/16/2024, 11:34 AM Ph. [phone] * Telephone Encounter - Florentin Calvo DO - 03/16/2024 11:17 AM EDT Fentanyl patch 12.5 mcg dose is OK Patient unable to get out of bed due to severe back pain from vertebral fracture. Naloxone sent to pharmacy. * Telephone Encounter - Veronique Batista [facility] - 03/16/2024 11:10 AM EDT [...] - 03/16/2024 10:47 AM EDT Jose from [facility] in [facility] left a voicemail in regards to the Fentanyl prescription that they received. He needs to know if patient has taken any other opiods. He didn't see it on the PDMP. Please call him back. Thanks. documented in this encounter Plan of Treatment Upcoming Encounters Date Type Department Care Team (Late st Contact Info) Description 03/17/2024 9:00 AM EDT Scheduled Telephone ising at [place], [address] [place] [address] Coordinator, [facility] 132 [facility] [place] [address] 03/18/2024 3:30 PM EDT Telemedicine Neurosurgery, [place] [address] [place] [address] Massimo Key MD [address] [place] [address] 03/25/2024 8:30 AM EDT Office Visit Hematology/Oncolog y [facility] [address] [place] [address] Nereyda Metz CRNP [address] [place] [address] 03/30/2024 11:20 AM EDT Office Visit Family Practice [address] [place] [address] [address] [place] [address] Florentin Calvo, [address] [place] [address] 04/01/2024 11:00 AM EDT [facility] Visit [facility] [place], [facility] 132 [facility] [place] [address] [place] Hurt, RN 132 [facility] [place] [address] 04/05/2024 11:00 AM EDT Imaging Vascular Lab, [facility] 132 [facility] [place] [address] 04/14/2024 10:50 AM EDT Office Visit Vascular Surgery, [facility] 132 [facility] [place] [address] Aj Sahni MD [address] [facility] [place] [address] 04/20/2024 3:40 PM EDT Office Visit Family Practice 65 [facility] 293 [facility], [place] [address] Florentin Calvo, DO 293 [facility], [place] [address] 05/21/2024 1:14 PM EDT Hospital Encounter OR [facility], Operating Room, [facility] - 4th Floor 400 [facility] [place] [address] Jana Vieira, DO [address] [facility] [place] [address] 05/21/2024 1:14 PM EDT - 05/21/2024 1:59 PM EDT Surgery OR [facility], Operating Room, [facility] - 4th Floor 400 [place] [address] Jana Vieira, DO [address] [place] [address] COLONOSCOPY FLEXIBLE PROXIMAL DIAGNOSTIC 06/03/2024 2:15 PM EDT Office Visit Ophthalmology, [facility] 132 [facility] [place] [address] Wilbur Benavides, DO [address] [facility] [place] [address] 07/01/2024 2:30 PM EST Office Visit Gastroenterology, [facility] 132 [facility] [place] [address] Lacy Ronquillo CRNP [address] [facility] [place] [address] 08/09/2024 1:00 PM EST Nurse Only Ancillary 65 [facility] 293 [facility], [place] [address] College, Nurse Annual Wellness Visit [address] [address] Scheduled Procedures Name Priority Associated Diagnoses Date/Ti [...] COPD 07/31/2024 07/31/2023 CKD PHOS USE SMARTSET 71073 08/19/202407/26, 05/01/2022, 04/03/2022, Additional history exists Diabetic Foot Exam 09/15/2024 09/15/2023, 0 10/01/2022, 10/26/2021, Additional history exists GFR 09/15/2024 03/15/2024, 07/0 04/2024, 02/24/2024, Additional history exists Depression Monitoring 09/29/2024 09/29/2023 Albumin/Creatinine Ratio 12/08/2024 024, 02/21/2023, 05/01/2022, Additional history exists CKD HGB USE SMARTSET 61568 03/15/202503/15, 03/15/2024, 03/02/2024, Additional history exists TSH [...] this encounter Medical Devices Implanted Type Area Assistant Service Manager Device Identifier Shelf Expiration Date Model / Serial / Lot Cath Thermodilution 6fr - [id number] Implanted:Qty: 1 on 01/24/2023 by Wilbur Rivera MD at [facility] [employer] TEER [id number] 10/15/2024 [id number] / / [id number] Clip Delivery Sytem G4 Xt - [id number] Implanted:Qty: 1 on 03/10/2023 at [facility] [employer] [id number] 04/15/2023 [id number] / / [id number] Clip Delivery Sytem G4 Xtw - [id number] Implanted:Qty: 1 on 03/10/2023 at [facility] [employer] [id number] 12/06/2023 [id number] / / [id number] Mirtaclip G4 - [id number] Implanted:Qty: 1 on 03/10/2023 at [facility] [employer] 11/19/2023 [id number] / / [id number] Device Watchman Flx 31mm - [id number] Implanted:Qty: 1 on 07/31/2023 by Wilbur Rivera MD at [facility] [employer] : INTRV CARD [id number] 12/02/2025 [id number] documented as of this encounter Visit Diagnoses Diagnosis Compression fracture of T12 vertebra, initial encounter ([facility])- Primary Diarrhea, unspecified type History of diverticulitis documented in this encounter Advance Directives Documents on File Type Date Recorded Patient Neonatal Icu Coordinator Expl anation Advance Directives and Living Will 11/29/2022 ADVANCE DIRECTIVE / LIVING WILL Power of Dining Room Tables Set Up Attendant 11/29/2022 POWER OF A TTORNEY Advance Directives and Living Will 10/24/2014 ADVANCE DIRECTIVE / LIVING WILL Power of Dining Room Tables Set Up Attendant 10/24/2014 POWER OF A TTORNEY * [...] the patient have Health Care Power of Dining Room Tables Set Up Attendant? No * No Code Date Activated [...] Agen t (per Health Care Power of Dining Room Tables Set Up Attendant document) Care Teams Compliance Clerk Relationship Specialty Start Date End Date Florentin Calvo DO [address] [place] [address] PCP - General Internal Medicine 02/06/24 documented as of this encounter
--- OUTSIDE RECORDS SUMMARY | 2024-03-21 01:02 | External Medical Summary ---
Author Name Unknown Address Unknown Organization K01:[facility]ATORY [facility] - [address] [facility] [address] Laboratory Report Ordering Provider Test Date Status ANTONIO EDMONDS 03/15/2024 17:09:57 Final Observation Date Value Abnormality Reference (Units ) Status WBC, Total 03/15/2024 17:09:57 8.58 4.00-10.8 0 (K/uL) Final RBC 03/15/2024 17:09:57 3.67 3.85-5.15 (M/uL) Final Hemoglobin 03/15/2024 17:09:57 11.1 Below low normal 12 .0-15.3 (g/dL) Final Anemia reflex testing trigge rs on a HGB < 12.0 for Females and HGB < 13.0 for Males in accordance with the WHO Anemia Guidelines
Anemia reflex testing triggers on a HGB < 12.0 for Females and HGB < 13.0 for Males in accordance with the WHO Anemia Guidelines HCT 03/15/2024 17:09:57 36.2 36.0-45.2 (%) Final MCV 03/15/2024 17:09:57 98.6 81.5-97.5 (fL) Final MCH 03/15/2024 17:09:57 30.2 27.0-34.0 (pg) Final MCHC 03/15/2024 17:09:57 30.7 32.0-36.0 (g/dL) Final RDW 03/15/2024 17:09:57 16.7 11.5-15.5 (%) Final Platelets 03/15/2024 17:09:57 241 140-400 (K /uL) Final MPV 03/15/2024 17:09:57 11.7 6.6-11.1 ( fL) Final Nucleated erythrocytes/100 leukocytes [Ratio] in Blood by Automated count 03/15/2024 17:09:57 0 <=0 (/100 WBCs) [facility] Performing Location [facility] - [address] [facility] [address]
--- OUTSIDE RECORDS SUMMARY | 2024-03-21 01:02 | External Medical Summary ---
Author Name Unknown Address Unknown Organization K01:LABORATORY [facility] [place] - [facility] [address] [facility] [address] Laboratory Report Ordering Provider Test Date Status ANTONIO EDMONDS 03/15/2024 17:09:57 Final Observation Date Value Abnormality Reference (Units ) Status Retic, % (auto) 03/15/2024 17:09:57 1.74 0.80-1.90 (%) Final Reticulocytes, Absolute 03/15/2024 17:09:57 62.3 31.3-100.1 (K/uL) Final Reticulocyte fraction, immature 03/15/2024 17:09:57 17.5 2.5-20.6 (%) Final Reticulocyte HGB 03/15/2024 17:09:57 32.6 29.7-37.4 (pg) Final Performing Location LABORATORY [facility] - [address] [facility] [place] [address]
--- OUTSIDE RECORDS SUMMARY | 2024-03-21 01:02 | External Medical Summary ---
Author Name Unknown Address Unknown Organization K01:[facility]ATORY [facility] [place] - [address] [place] [address] Laboratory Report Ordering Provider Test Date Status ANTONIO EDMONDS 03/15/2024 17:09:57 Final Observation Date Value Abnormality Reference (Units ) Status Vitamin B12 03/15/2024 17:09:57 1698 Above high normal 232-1245 (pg/mL) Final Performing Location [facility] - [address] [place] [address]
--- OUTSIDE RECORDS SUMMARY | 2024-03-21 01:02 | External Medical Summary ---
Author Name Unknown Address Unknown Organization K01:[place] [facility] [place] [address] [facility] [address] Laboratory Report Ordering Provider Test Date Status ANTONIO EDMONDS 03/15/2024 17:09:57 Final Observation Date Value Abnormality Reference (Units ) Status BUN 03/15/2024 17:09:57 50 Above high normal 6-20 (mg/dL) Final Creatinine 03/15/2024 17:09:57 2.3 Above high normal 0.5-1.0 (mg/dL) Final Glomerular filtration rate/1.73 sq M.predicted [Volume Rate/Area] in Serum, Plasma or Blood by Creatinine-based formula (CKD-EPI) 03/15/2024 17:09:57 20 Below low normal >=60 (mL/min) Final eGFR is calculated based on the CKD-EPI 2020 equation. Sodium 03/15/2024 17:09:57 138 135-146 (m mol/L) Final Potassium 03/15/2024 17:09:57 4.0 3.5-5.1 (m mol/L) Final Cl 03/15/2024 17:09:57 100 98-107 (mm ol/L) Final CO2 03/15/2024 17:09:57 24 22-32 (mmo l/L) Final Anion gap 03/15/2024 17:09:57 14 7-15 (mmol /L) Final Glucose 03/15/2024 17:09:57 150 Above high normal 70 -120 (mg/dL) Final Albumin 03/15/2024 17:09:57 4.0 3.8-5.0 (g /dL) Final AST (Aspartate aminotransferase) 03/15/2024 17:09:57 40 Above high normal 10-35 (U/L) Final Alk Phos 03/15/2024 17:09:57 247 Above high normal 35 -130 (U/L) Final Bilirubin, Total 03/15/2024 17:09:57 0.2 <=1 .2 (mg/dL) Final Calcium 03/15/2024 17:09:57 9.3 8.4-10.2 ( mg/dL) Final Protein 03/15/2024 17:09:57 6.5 6.0-8.3 (g /dL) Final ALT (Alanine aminotransferase) 03/15/2024 17:09:57 20 10-35 (U/L) Tarik polo Performing Location [facility] [place] [address] [facility] [address]
--- OUTSIDE RECORDS SUMMARY | 2024-03-21 01:02 | External Medical Summary ---
Author Name Unknown Address Unknown Organization K01:[facility] [place] [address] [facility] [address] Laboratory Report Ordering Provider Test Date Status ANTONIO EDMONDS 03/15/2024 17:09:57 Final Observation Date Value Abnormality Reference (Units ) Status Folic Acid 03/15/2024 17:09:57 >20.0 >4.5 (ng/ mL) Final Performing Location LABORATORY [facility] - [address] [place] [address]
--- OUTSIDE RECORDS SUMMARY | 2024-03-21 01:02 | External Medical Summary ---
Author Name Unknown Address Unknown Organization K01:LABORATORY [facility] [place] - [address] [facility] [address] Laboratory Report Ordering Provider Test Date Status ANTONIO EDMONDS 03/15/2024 17:09:57 Final Observation Date Value Abnormality Reference (Units ) Status TSH 03/15/2024 17:09:57 23.80 Above high normal 0. 27-4.20 (uIU/mL) Final Performing Location [facility] - [address] [facility] [address]
--- OUTSIDE RECORDS SUMMARY | 2024-03-21 01:02 | External Medical Summary | Summary of Care ---
Author Name Unknown Organization [facility] Address [address] [place] [address] Phone [phone] Care Team Providers Care Underground Repairer Name Role Phone Florentin Calvo DO Primary Care Provider [phone] Reason for Visit * Reason Onset Date Comments Test Results 03/10/202403/10 Encounter Details Date Type Department Care Team (Late st Contact Info) Description 03/10/2024 Telephone Family Practice [address] [facility], [place] [address] [place] [address] Florentin Calvo DO [address] [place] [address] Test Results () Allergies Active Allergy Reactions Criticality Noted Date Comments Azithromycin Other (Please comment) 12/04/2021 QTC prolongation at [facility] Celecoxib Hives,Rash High 03/24/2013 Other [...] as of this encounter (statuses as of 03/15/2024) Medications Medication Sig Dispensed Refills Start Date End Date Status [employer] w/Device KitIndications:Type 2 diabetes mellitus with hemoglobin A1c goal of less than 7.0% ([facility]) Use up to 1 times a day. E11.9 1 Kit 06/19/2021 Active Vitamin D3 50 MCG (2000 UT) Oral CapsuleIndications: Vitamin D deficiency Take 2 Capsules by mouth in the morning. 60 Capsule 5 04/04/2022 Active Levalbuterol Tartrate 45 MCG/ACT Inhalation Aerosol (Xopenex HFA)Indications:Ast hma with severity to be determined Inhale by mouth 1 Puff every 4 hours as needed for Wheezing. 15 g 12 06/13/2022 Active OneTouch VerPulmologix In Vitro Strip (Glucose Blood) Test blood sugars up to 2 times a day E11.9 200 Strip 3 12/20/2022 Active Atorvastatin Calcium 20 MG Oral Tablet (Lipitor)Indication s:PVD (peripheral vascular disease) ([facility]),Type 2 diabetes mellitus with stage 3a chronic kidney disease and hypertension (HCC) TAKE ONE TABLET BY MOUTH EVERY DAY DIRECTED 100 Tablet 3 03/31/2023 Active Ipratropium Hydro 0.03 % Nasal Solution (Atrovent)Indicatio ns:Chronic rhinitis Administer 2 Sprays into nostril in the morning and 2 Sprays before bedtime. 90 mL 3 04/01/2023 Active Allopurinol 300 MG Oral Tablet (Zyloprim) Take 1 Tablet by mouth at bedtime. 90 Tablet 3 05/16/2023 Active Tiotropium Hydro-Olodaterol 2.5-2.5 MCG/ACT Inhalation Aerosol Solution (Stiolto Respimat) [...] as needed for Pain, Moderate. 30 Tablet 01/20/2024 4 Discontinue d(Refill) Fiber Select Gummies Oral Tablet Chewable Take 1 Tablet by mouth in the morning. 4 Discontinue d(Medicatio n List Clean Up) Colestipol HCl 1 GM Oral Tablet (Colestid) Take 1 Tablet by mouth in the morning and 1 Tablet before bedtime. 60 Tablet 3 02/12/2024 4 Discontinue d(Medicatio n List Clean Up) Diphenoxylate-Atrop ine 2.5-0.025 MG Oral Tablet (Lomotil)Indication s:Chronic diarrhea Take 1 Tablet by mouth 2 times a day as needed for Diarrhea. 60 Tablet 3 03/01/2024 4 Discontinue d(Medicatio n List Clean Up) Lidocaine 4 % External Patch (Aspercreme) Place 1 Patch topically on the skin daily. 4 Discontinue d(Medicatio n List Clean Up) documented as of this encounter (statuses as of 03/15/2024) Active Problems Problem Noted Date Diagnosed Date Compression fracture of T12 vertebra 03/12/2024 Last Assessment & Plan: Increased oxy from 2.5mg to 5mg [id number] prn Ortho spine ref, ?kyphoplasty Constipation 03/12/2024 [...] mitral valve clip implantation 03/06/2023 Atherosclerosis of [place] 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 02/13/2023 Last Assessment & Plan: Continue statin, sotalol. 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 No-[place] can hear w/ hearing aid 03/07/2023 Are [...] Telephone Encounter - Hilda Awad LPN - 03/10/2024 11:44 AM EDT Son called back with correction. Patient has not actually had a bm since Friday. Pain does continue for patient. Thank you * Telephone Encounter - Grace Jeffries OSA - 03/10/2024 11:23 AM EDT Returned Hilda call * Telephone Encounter - Hilda Awad LPN - 03/10/2024 11:00 AM EDT Spoke to son, diarrhea continues. States not as bad. Today has not had any bm's. Yesterday had 2 times, liquid stool Thank you * Telephone Encounter - Hilda Awad LPN - 03/10/2024 10:59 AM EDT ----- Message from Florentin Calvo DO sent at 03/10/2024 10:45 AM EDT ----- CT abdomen and Pelvis is OK Moderate stool retained in colon See if diarrhea presists documented in this encounter Plan of Treatment Upcoming Encounters Date Type Department Care Team (Late st Contact Info) Description 03/16/2024 9:30 AM EDT Scheduled Telephone [facility], [facility] [address] [facility] [place] [address] Coordinator, [facility] [address] [facility] [place] [address] 03/17/2024 9:00 AM EDT Scheduled Telephone [facility], [facility] [address] [place] [address] Coordinator, [facility] [place] [address] 03/18/2024 3:30 PM EDT Telemedicine Neurosurgery, [place] [address] [facility] [address] Massimo Key MD [address] [place] [address] 03/25/2024 8:30 AM EDT Office Visit Hematology/Oncolog y Jerri Zam[place] [address] [facility] [place] [address] Nereyda Metz CRNP [address] [place] [address] [place] [id number] 03/30/2024 11:20 AM EDT Office Visit Family [facility] [address] [place] [address] Florentin Calvo, DO 293 [place] [address] 04/01/2024 11:00 AM EDT Home Visit [facility], [facility] 132 [facility] [place] [address] Michelle Hurt, RN 132 [facility] [place] [address] 04/05/2024 11:00 AM EDT Imaging Vascular Lab, [facility] [facility] [address] [facility] [place] [address] 04/14/2024 10:50 AM EDT Office Visit Vascular Surgery, [facility] [address] [facility] [place] [address] Aj Sahni MD [address] [place] [address] 04/20/2024 3:40 PM EDT Office Visit Family [address] [place] [address] Florentin Calvo, DO 293 [place] [address] 05/21/2024 1:14 PM EDT Hospital Encounter OR [facility], Operating Room, [facility] - 4th Floor [address] [facility] [place] [address] Jana Vieira, DO 132 [facility] [place] [address] 05/21/2024 1:14 PM EDT - 05/21/2024 1:59 PM EDT Surgery OR [facility], Operating Room, [facility] - 4th Floor [address] [facility] [place] [address] Jana Vieira, DO [address] [facility] [place] [address] COLONOSCOPY FLEXIBLE PROXIMAL DIAGNOSTIC 06/03/2024 2:15 PM EDT Office Visit Ophthalmology, [facility] [address] [facility] [place] [address] Wilbur Benavides, DO [facility] [place] [address] 07/01/2024 2:30 PM EST Office Visit Gastroenterology, [facility] [address] [facility] [place] [address] Lacy Ronquillo CRNP [address] [facility] [address] 08/09/2024 1:00 PM EST Nurse Only Ancillary [facility] 293 [place] [address] College, Nurse Annual Wellness Visit [address] [place] [address] Scheduled Procedures Name Priority Associated Diagnoses Date/Ti [...] COPD 07/31/2024 07/31/2023 CKD PHOS USE SMARTSET 68287 08/19/202407/26, 05/01/2022, 04/03/2022, Additional history exists GFR 09/02/2024 03/02/2024, 0709/2023, 02/16/2024, Additional history exists Diabetic Foot Exam 09/15/2024 09/15/2023, 0 10/01/2022, 10/26/2021, Additional history exists Depression Monitoring 09/29/2024 09/29/2023 TSH 12/07/2024 12/08/2023, 08/26, 09/24/2022, Additional history exists Albumin/Creatinine Ratio 12/08/2024 024, 02/21/2023, 05/01/2022, Additional history exists CKD HGB USE SMARTSET 48188 03/02/202503/02, 02/12/2024, 02/12/2024, Additional history exists DXA Scan 05/07/2025 05/07/2021, [...] this encounter Medical Devices Implanted Type Area Presto Log Operator Device Identifier Shelf Expiration Date Model / Serial / Lot Cath Thermodilution 6fr - [id number] Implanted:Qty: 1 on 01/24/2023 by Wilbur Rivera MD at [facility] [place] [employer] [id number] 10/15/2024 [id number] / / [id number] Clip Delivery Sytem G4 Xt - [id number] Implanted:Qty: 1 on 03/10/2023 at [facility] [place] [employer] [id number] 04/15/2023 [id number] / / [id number] Clip Delivery Sytem G4 Xtw - [id number] Implanted:Qty: 1 on 03/10/2023 at [facility] [place] [employer] [id number] 12/06/2023 [id number] / / [id number] [employer]irtac[employer] G4 - [id number] Implanted:Qty: 1 on 03/10/2023 at [facility] [place] [employer] 11/19/2023 [id number] / / [id number] Device Watchman Flx 31mm - [id number] Implanted:Qty: 1 on 07/31/2023 by Wilbur Rivera MD at [facility] [place] [employer] : INTRV CARD [id number] 12/02/2025 [id number] documented as of this encounter Advance Directives Documents on File Type Date Recorded 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 No * No Code Date Activated [...] Frieda t (per Health Care Power of Relocation Specialist document) Care Teams Underground Repairer Relationship Specialty Start Date End Date Florentin Calvo DO [address] [place] [address] PCP - General Internal Medicine 02/06/24 documented as of this encounter
--- OUTSIDE RECORDS SUMMARY | 2024-03-21 01:03 | External Medical Summary ---
Author Name Unknown Address Unknown Organization K01:[facility]ORY [facility] [place] - [address] [facility] [facility] [address] Laboratory Report Ordering Provider Test Date Status ANTONIO EDMONDS 03/15/2024 17:09:57 Final Observation Date Value Abnormality Reference (Units ) Status SYNC LEUKOCYTES IN BLOOD BY AUTOMATED COUNT 03/15/2024 17:09:57 8.58 4.00-10.80 (K/uL) Final Segs 03/15/2024 17:09:57 71.5 40.0-75.0 (%) Final Lymphs % 03/15/2024 17:09:57 13.2 Below low normal 18.0-42.0 (%) Final Monos 03/15/2024 17:09:57 8.3 1.0-11.0 (%) Final Eosinophils 03/15/2024 17:09:57 5.6 0.0-6.0 (%) Final Basos 03/15/2024 17:09:57 0.6 0.0-2.0 (%) Final Immature Granulocyte, Percent 03/15/2024 17:09:57 0.8 0.0-2.0 (%) Final Absolute Segs 03/15/2024 17:09:57 6.14 1.80-7.70 (K/uL) Final Lymphs, absolute 03/15/2024 17:09:57 1.13 1.00-4.80 (K/ul) Final Monos, Abs 03/15/2024 17:09:57 0.71 0.00-1.10 (K/uL) Final Eos, Abs 03/15/2024 17:09:57 0.48 0.00-0.70 (K/uL) Final Basos, Abs 03/15/2024 17:09:57 0.05 0.00-0.20 (K/uL) Final Immature Granulocytes, Number 03/15/2024 17:09:57 0.07 0.00-0.20 (K/uL) Final Performing Location [facility]ORY [facility] [place] - [address] [facility] [address]
--- OUTSIDE RECORDS SUMMARY | 2024-03-21 01:03 | External Medical Summary | Summary of Care ---
Author Name Unknown Organization [facility] Address [address] [place] [address] Phone [phone] Care Team Providers Care Quarry Plug And Feather Driller Name Role Phone Florentin Calvo DO Primary Care Provider [phone] Reason for Visit * Reason Onset Date Comments Appointment 03/15/2024 Encounter Details Date Type Department Care Team (Late st Contact Info) Description 03/15/2024 Telephone [facility], [facility] [address] [place] [address] Services, Scheduling [address] [place] [address] Appointment (//) Allergies Active Allergy Reactions Criticality Noted Date Comments Azithromycin Other (Please comment) 12/04/2021 QTC prolongation at [facility] Celecoxib Hives,Rash High 03/24/2013 Other reaction(s): [...] Dispensed Refills Start Date End Date Status Xplr SoftwareTouch Verio w/Device KitIndications:Type 2 diabetes mellitus [...] (Lipitor)Indications :PVD (peripheral vascular disease) ([facility]),Type 2 diabetes mellitus with stage 3a chronic kidney disease and hypertension ([facility]) TAKE ONE TABLET BY MOUTH EVERY DAY DIRECTED 100 Tablet 3 03/31/2023 Active Ipratropium Madelia 0.03 % Nasal Solution (Atrovent)Indication s:Chronic rhinitis Administer 2 Sprays into nostril in the morning and 2 Sprays before bedtime. 90 mL 3 04/01/2023 Active Allopurinol 300 MG Oral Tablet (Zyloprim) Take 1 Tablet by mouth at bedtime. 90 Tablet 3 05/16/2023 Active Tiotropium Madelia-Olodaterol 2.5-2.5 MCG/ACT Inhalation Aerosol Solution (Stiolto Respimat) [...] the evening. 200 Tablet 1 01/22/2024 Active Fiber Select Gummies Oral Tablet Chewable Take 1 Tablet by mouth in the morning. Active Vitamin B-12 100 MCG Oral Tablet (vitamin B-12)Indications:B12 deficiency Take 1 Tablet by mouth in the morning. 90 Tablet 3 02/05/2024 Active Colestipol HCl 1 GM Oral Tablet (Colestid) Take 1 Tablet by mouth in the morning and 1 Tablet before bedtime. 60 Tablet 3 02/12/2024 Active Torsemide 10 MG Oral Tablet (Demadex)Indications :Chronic diastolic CHF (congestive heart failure) (HCC) Take 2 Tablets by mouth in the morning. 200 Tablet 3 02/24/2024 Active Diphenoxylate-Atropi ne 2.5-0.025 MG Oral Tablet (Lomotil)Indications :Chronic diarrhea Take 1 Tablet by mouth 2 times a day as needed for Diarrhea. 60 Tablet 3 03/01/2024 Active Lidocaine 4 % External Patch (Aspercreme) Place 1 Patch topically on the skin daily. Active Apixaban 2.5 MG Oral Tablet (Eliquis)Indications [...] ounces of water or juice.. 03/12/2024 Active documented as of this encounter (statuses as of 03/15/2024) Active Problems Problem Noted Date Diagnosed Date Compression fracture of T12 vertebra 03/12/2024 Last Assessment & Plan: Increased oxy from 2.5mg to 5mg [id number] prn Ortho spine ref, ?kyphoplasty Constipation 03/12/2024 [...] mitral valve clip implantation 03/06/2023 Atherosclerosis of 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 02/13/2023 Last Assessment & Plan: Continue statin, sotalol. 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 Called s/w pts son he advised he isn't sure if his mom rcvd order yet. documented in this encounter Plan of Treatment Upcoming Encounters Date Type Department Care Team (Late st Contact Info) Description 03/15/2024 4:00 PM EDT Office Visit Family Practice [address], [place] [address] [place] [place] [address] Florentin Calvo, DO 293 [place] [address] 03/16/2024 9:30 AM EDT Scheduled Telephone [facility] [place], [facility] [address] [place] [address] Coordinator, [facility] [address] [place] [address] 03/17/2024 9:00 AM EDT Scheduled Telephone [facility], [facility] 132 [facility] [place] [address] Coordinator, [facility] [place] [address] 03/17/2024 1:40 PM EDT Office Visit Family Practice 65 [facility], [place] [address] [place] [address] Florentin Calvo, 293 [place] [address] 03/18/2024 3:30 PM EDT Telemedicine Neurosurgery, [place] [address] [place] [address] Massimo Key MD [address] [place], [place] [id number] 03/25/2024 8:30 AM EDT Office Visit Hematology/Oncolog y [facility] 200 [facility] [phone] Nereyda Metz CRNP [address] [place] [address] 04/01/2024 11:00 AM EDT Home Visit [facility], [facility] 132 [facility] [place] [address] Michelle Hurt, RN 132 [facility] [place] [address] 04/05/2024 11:00 AM EDT Imaging Vascular Lab, [facility] [address] [place] [address] 04/14/2024 10:50 AM EDT Office Visit Vascular Surgery, [facility] [address] [facility] [place] [address] Aj Sahni MD [address] [place] [address] 04/20/2024 3:40 PM EDT Office Visit Family [facility] 65 [facility], [place] [address] [place] [address] Florentin Calvo, DO 293 [place] [address] 05/21/2024 1:14 PM EDT Hospital Encounter OR [facility], Operating Room, [facility] - 4th Floor [address] [place] [address] Jana Vieira, DO [facility] [place] [address] 05/21/2024 1:14 PM EDT - 05/21/2024 1:59 PM EDT Surgery OR [facility], Operating Room, [facility] - 4th Floor 400 [facility] [place] [address] Jana Vieira, DO [facility] [place] [address] COLONOSCOPY FLEXIBLE PROXIMAL DIAGNOSTIC 06/03/2024 2:15 PM EDT Office Visit Ophthalmology, [facility] 132 [facility] [place] [address] Wilbur Benavides, DO [address] [facility] [place] [address] 07/01/2024 2:30 PM EST Office Visit Gastroenterology, [facility] 132 [facility] [place] [address] Lacy Ronquillo CRNP [facility] [place] [address] 08/09/2024 1:00 PM EST Nurse Only Ancillary 65 [facility] [address] [place] [address] College, Nurse Annual Wellness Visit [address] [facility] [address] [place] [address] Scheduled Procedures Name Priority Associated Diagnoses Date/Ti [...] COPD 07/31/2024 07/31/2023 CKD PHOS USE SMARTSET 88447 08/19/202407/26, 05/01/2022, 04/03/2022, Additional history exists GFR 09/02/2024 03/02/2024, 0709/2023, 02/16/2024, Additional history exists Diabetic Foot Exam 09/15/2024 09/15/2023, 0 10/01/2022, 10/26/2021, Additional history exists Depression Monitoring 09/29/2024 09/29/2023 TSH 12/07/2024 12/08/2023, 08/26, 09/24/2022, Additional history exists Albumin/Creatinine Ratio 12/08/2024 024, 02/21/2023, 05/01/2022, Additional history exists CKD HGB USE SMARTSET 31115 03/02/202503/02, 02/12/2024, 02/12/2024, Additional history exists DXA [...] this encounter Medical Devices Implanted Type Area Processor Solid Propellant Device Identifier Shelf Expiration Date Model / Serial / Lot Cath Thermodilution 6fr - [id number] Implanted:Qty: 1 on 01/24/2023 by Wilbur Rivera MD at [facility] [employer] [id number] 10/15/2024 [id number] / / [id number] Clip Delivery Sytem G4 Xt - [id number] Implanted:Qty: 1 on 03/10/2023 at [facility] [employer] [id number] 04/15/2023 [id number] / / [id number] Clip Delivery Sytem G4 Xtw - [id number] Implanted:Qty: 1 on 03/10/2023 at [facility] [employer] [id number] 12/06/2023 [id number] / / [id number] Mirtaclip G4 - [id number] Implanted:Qty: 1 on 03/10/2023 at [facility] [employer] 11/19/2023 [id number] / / [id number] Device Watchman Flx 31mm - [id number] Implanted:Qty: 1 on 07/31/2023 by Wilbur Rivera MD at [facility] [employer] : INTRV CARD [id number] 12/02/2025 [id number] / / [id number] documented as of this encounter Advance Directives Documents on File Type Date Recorded 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 No * No Code Date Activated Date [...] Agen t (per Health Care Power of Inclusion Manager document) Care Teams Quarry Plug And Feather Driller Relationship Specialty Start Date End Date Florentin Calvo DO [address] [place] [address] PCP - General Internal Medicine 02/06/24 documented as of this encounter
--- OUTSIDE RECORDS SUMMARY | 2024-03-21 01:03 | External Medical Summary | Summary of Care ---
Author Name Unknown Organization [facility] Address [address] [place] [address] Phone [phone] Care Team Providers Care Multimedia Teacher Name Role Phone Florentin Calvo DO Primary Care Provider [phone] Reason for Visit * Reason Onset Date Comments Information 03/12/2024 Encounter Details Date Type Department Care Team (Late st Contact Info) Description 03/12/2024 Telephone [facility], [facility] [address] [place] [address] Services, Scheduling [address] [place] [address] Information Allergies Active Allergy Reactions Criticality Noted Date [...] as of this encounter (statuses as of 03/12/2024) Medications Medication Sig Dispensed Refills Start Date End Date Status [employer] Verio w/Device KitIndications:Type 2 diabetes mellitus with [...] DIRECTED 100 Tablet 3 03/31/2023 Active Ipratropium [place]side 0.03 % Nasal Solution (Atrovent)Indication s:Chronic rhinitis Administer 2 Sprays into nostril in the morning and 2 Sprays before bedtime. 90 mL 3 04/01/2023 Active Allopurinol 300 MG Oral Tablet (Zyloprim) Take 1 Tablet by mouth at bedtime. 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 & Plan: Now just [...] as of this encounter (statuses as of 03/12/2024) Resolved Problems Problem Noted Date Diagnosed Date [...] as of this encounter (statuses as of 03/12/2024) Immunizations Name Administration Dates Next Due COVID-19 mRNA, LNP-s, No Pre serve, 2-Dose Series (Moderna) 06/23/2021,10/25/2020,09/28/2020 COVID-19, LNP-s, No Preserve , Larry-sucrose, Ages 12+ (Pfizer) 04/09/2022 COVID-19, MRNA-LNP, 23-24, P F, 30 MCG/0.3 mL, 12 YRS AND ABOVE, IM [facility] 06/09/2023 Covid-19, Mrna, Lnp-s, Pf, B [...] or do you have serious difficulty hearing? No-ANVIK can hear w/ hearing aid 03/07/2023 Are [...] encounter Miscellaneous Notes * Telephone Encounter - Wiley Benjamin OSA - 03/12/2024 3:42 PM EDT -[id number] Per request from Charlie Holly to send DME order to for a hospital bed. Sent to through the portal and scheduled f/u calls on 03/15, 03/16, and 03/17. documented in this encounter Plan of Treatment Upcoming Encounters Date Type Department Care Team (Late st Contact Info) Description 03/15/2024 10:45 AM EDT Scheduled Telephone [facility] [place], [facility] [address] [place] [address] Coordinator, [facility] [address] [place] [address] 03/16/2024 9:30 AM EDT Scheduled Telephone [facility] [address] [address] Coordinator, [facility] [place] [address] 03/17/2024 9:00 AM EDT Scheduled Telephone [facility], [facility] [address] [place] [address] Coordinator, [facility] [address] [place] [address] 03/17/2024 1:40 PM EDT Office Visit Family Practice 65 [facility] 293 [facility] [place] [address] Florentin Calvo, 293 [place] [address] 03/18/2024 3:30 PM EDT Telemedicine Neurosurgery, [place] [address] [place] [address] Massimo Key MD [address] [place] [address] 03/25/2024 8:30 AM EDT Office Visit Hematology/Oncolog y [facility] 200 [facility] [place] [address] Nereyda Metz CRNP [address] [place] [address] 04/01/2024 11:00 AM EDT Home Visit [facility], [facility] [address] [place] [address] Michelle Hurt, RN [address] [place] [address] 04/05/2024 11:00 AM EDT Imaging Vascular Lab, [address] [place] [address] 04/14/2024 10:50 AM EDT Office Visit Vascular Surgery, [facility] [place] [address] Aj Sahni MD [address] [place] [address] 04/20/2024 3:40 PM EDT Office Visit Family Practice [address], [place] [address] [facility] [place] [address] Florentin Calvo, DO 293 [place] [address] 05/21/2024 1:14 PM EDT Hospital Encounter OR [facility], Operating Room, [facility] - 4th Floor 400 [facility] [place] [address] Jana Vieira, DO [facility] [place] [address] 05/21/2024 1:14 PM EDT - 05/21/2024 1:59 PM EDT Surgery OR [facility], Operating Room, [facility] - 4th Floor 400 [place] [address] Jana Vieira, DO [address] [place] [address] COLONOSCOPY FLEXIBLE PROXIMAL DIAGNOSTIC 06/03/2024 2:15 PM EDT Office Visit Ophthalmology, [facility] 132 [facility] [place] [address] Wilbur Benavides, DO [facility] [place] [address] 07/01/2024 2:30 PM EST Office Visit Gastroenterology, [facility] [place] [address] Lacy Ronquillo CRNP [address] [place] [address] 08/09/2024 1:00 PM EST Nurse Only Ancillary 65 [facility] 293 [facility] [place] [address] College, Nurse Annual Wellness Visit [address] [facility] 293 [facility] [place] [address] Scheduled Procedures Name Priority Associated Diagnoses Date/Ti [...] history exists *SPIROMETRY ONCE FOR ASTHMA-ADULT 03/07/2024 Influenza Vaccine (FLU shot) (#1) 2024 05/13/2023, 05/15/2022, 05/22/2021, Additional history exists Diabetic Eye Exam 05/22/2024 05/22/2023, , 05/22/2023, Additional history exists HbA1c 06/08/2024 12/08/2023, 07/26, 02/21/2023, Additional history exists O2 ASSESSMENT COMPLETED IN PAST YEAR FOR COPD 07/31/2024 07/31/2023 CKD PHOS USE SMARTSET 35278 08/19/202407/26, 05/01/2022, 04/03/2022, Additional history exists GFR 09/02/2024 03/02/2024, 07/0 09/2023, 02/16/2024, Additional history exists Diabetic Foot Exam 09/15/2024 09/15/2023, 0 10/01/2022, 10/26/2021, Additional history exists Depression Monitoring 09/29/2024 09/29/2023 TSH 12/07/2024 12/08/2023, 08/26, 09/24/2022, Additional history exists Albumin/Creatinine Ratio 12/08/2024 024, 02/21/2023, 05/01/2022, Additional history exists CKD HGB USE SMARTSET 06140 03/02/202503/02, 02/12/2024, 02/12/2024, Additional history exists DXA [...] this encounter Medical Devices Implanted Type Area Securities Research Analyst Device Identifier Shelf Expiration Date Model / Serial / Lot Cath Thermodilution 6fr - [id number] Implanted:Qty: 1 on 01/24/2023 by Wilbur Rivera MD at [facility] [employer] [id number] 10/15/2024 [id number] / / [id number] Clip Delivery Sytem G4 Xt - [id number] Implanted:Qty: 1 on 03/10/[address] [facility] [employer] [id number] 04/15/2023 [id number] T / / [id number] Clip Delivery Sytem G4 Xtw - [id number] Implanted:Qty: 1 on 03/10/[address] [facility] [employer] [id number] 12/06/2023 [id number] / / [id number] Mirtaclip G4 - [id number] Implanted:Qty: 1 on 03/10/[address] [facility] [employer] 11/19/2023 [id number] / / [id number] Device Watchman Flx 31mm - [id number] Implanted:Qty: 1 on 07/31/2023 by Wilbur Rivera MD at [facility] [employer] : INTRV CARD [id number] 12/02/2025 [id number] / [id number] documented as of this encounter Advance Directives Documents on File Type Date Recorded Patient Intelligence Research Specialist Expl anation Advance Directives and Living Will 11/29/2022 ADVANCE DIRECTIVE / LIVING WILL Power of Precipitator 11/29/2022 POWER OF A TTORNEY Advance Directives and Living Will 10/24/2014 ADVANCE DIRECTIVE / LIVING WILL Power of Precipitator 10/24/2014 POWER OF A TTORNEY * Full [...] the patient have Health Care Power of Precipitator? No * No Code Date Activated Date [...] Agen t (per Health Care Power of Precipitator document) Care Teams Multimedia Teacher Relationship Specialty Start Date End Date Florentin Calvo DO [address] [place] [address] PCP - General Internal Medicine 02/06/24 documented as of this encounter
--- OUTSIDE RECORDS SUMMARY | 2024-03-21 01:04 | External Medical Summary | Summary of Care ---
Author Name Unknown Organization [facility] Address [address] [place] [address] Phone [phone] Care Team Providers Care Solutions Consultant Name Role Phone Florentin Calvo DO Primary Care Provider [phone] Reason for Visit * Reason Onset Date Comments Follow Up 03/12/2024 Encounter Details Date Type Department Care Team (Latest Contact Info) Description 03/12/2024 11:00 AM EDT Scheduled Telephone [facility], [facility] [address] [facility] [place] [address] Leandro Holly PA-C [address] [facility] [place] [address] Compression fracture of T12 vertebra with routine healing, subsequent encounter*; Type 2 diabetes mellitus with stage 3b chronic kidney disease, without long-term current use of insulin ([facility]); PVD (peripheral vascular disease) ([facility]) Allergies Active Allergy Reactions Criticality Noted Date [...] Dispensed Refills Start Date End Date Status Tissue Genesisuch VerNuMedii w/Device KitIndications:Type 2 diabetes mellitus with hemoglobin A1c goal of less than 7.0% ([facility]) Use up to 1 times [...] Tablet (Lipitor)Indications :PVD (peripheral vascular disease) ([facility]),Type 2 diabetes mellitus with stage 3a chronic kidney disease and hypertension ([facility]) TAKE ONE TABLET BY MOUTH EVERY DAY DIRECTED 100 Tablet 3 03/31/2023 Active Ipratropium [place] 0.03 % Nasal Solution (Atrovent)Indication s:Chronic rhinitis Administer 2 Sprays into nostril in the morning and 2 Sprays before bedtime. 90 mL 3 04/01/2023 Active Allopurinol 300 MG Oral Tablet (Zyloprim) Take 1 Tablet by mouth at bedtime. 90 Tablet 3 05/16/2023 Active Tiotropium [place]-Olodaterol 2.5-2.5 MCG/ACT Inhalation Aerosol Solution (Stiolto Respimat) Inhale 2 Puffs by mouth in the morning. 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 No-SAMISH can hear w/ hearing aid 03/07/2023 Are [...] encounter Miscellaneous Notes * Telephone Encounter - Leandro Holly PA-C - 03/12/2024 1:51 PM EDT Phone call 03/12 1:45pm Spoke with patient, son and daughter. CT a/p 03/05 - moderate retained stool in large bowel. No other acute finding. 03/07-1 loose bm 03/10-1 loose bm 03/11 -2 loose bm 03/12 - 1 loose bM Currently using miralax bid along with dulcolax 5mg daily. Which was started 03/10. Suspect overflow diarrhea. She is having some abd discomfort that is relieved with BM. Denies n/v, fever/chills. Patient still having significant back pain. Family decreased use of oxycodone due to ongoing constipation and potential for worsening. Only had 2.5mg oxycodone yesterday at bedtime. Has been using more APAP instead. Using heat and topical lidocaine. Recommended to increase oxycodone to 5mg prn for better pain control. Will continue miralax bid for constipation. Can also try OTC enema treatment. Family briefly discussed palliative ref. Reviewed purpose of palliative care with family. Discussed that while we do manage pain and symptoms, that these are typically due to chronic serious illness rather than acute injury. Will reach out to interventional radiology to see if kyphoplasty could be an option for pain. Order placed for DME hospital bed to help with positioning for comfort. Without electric bed, patient would be unable to sit up and get out of bed. Reviewed goals of care. Current AD and GOC conflicting. Family and patient agree that she would NOTwant CPR. Recommended POLST and OOH DNR. Will discuss with PCP at appt next week. documented in this encounter Plan of Treatment Upcoming Encounters Date Type Department Care Team (Late st Contact Info) Description 03/17/2024 1:40 PM EDT Office Visit Family Practice [address], [place] [address] [place] [address] Florentin Calvo, [address] [place] [address] 03/18/2024 3:30 PM EDT Telemedicine Neurosurgery, [place] [address] [place] [address] Massimo Key MD [address] [place] [address] 03/25/2024 8:30 AM EDT Office Visit Hematology/Oncolog y [facility] [place] [address] [place] [phone] Nereyda Metz CRNP [address] [facility] [place] [address] 04/01/2024 11:00 AM EDT Home Visit Cris at [facility] [address] [facility] [place] [address] Michelle Hurt, RN [address] [place] [address] 04/05/2024 11:00 AM EDT Imaging Vascular Lab, [facility] 132 [facility] [place] [address] 04/14/2024 10:50 AM EDT Office Visit Vascular Surgery, [facility] [address] [facility] [place] [address] Aj Sahni MD [address] [place] [address] 04/20/2024 3:40 PM EDT Office Visit Family Practice [address] [place] [address] [address] [place] [address] Florentin Calvo, DO [address] [place] [address] 05/21/2024 1:14 PM EDT Hospital Encounter OR GL, Operating Room, [facility] - 4th Floor [address] [place] [address] Jana Vieira, DO [address] [facility] [place] [address] 05/21/2024 1:14 PM EDT - 05/21/2024 1:59 PM EDT Surgery OR [facility], Operating Room, [facility] - 4th Floor [address] [facility] [place] [address] Jana Vieira, DO [address] [facility] [place] [address] COLONOSCOPY FLEXIBLE PROXIMAL DIAGNOSTIC 06/03/2024 2:15 PM EDT Office Visit Ophthalmology, [facility] 132 [facility] [place] [address] Wilbur Benavides, DO [address] [place] [address] 07/01/2024 2:30 PM EST Office Visit Gastroenterology, [facility] [address] [place] [address] Lacy Ronquillo CRNP [address] [facility] [place] [address] 08/09/2024 1:00 PM EST Nurse Only Ancillary [address] [facility] [address] [place] [address] College, Nurse Annual Wellness Visit [address], [place] [address] Scheduled Procedures Name Priority Associated Diagnoses Date/Ti me COLONOSCOPY FLEXIBLE PROXIMA L DIAGNOSTIC Diarrhea, unspecified type History of diverticulitis 05/21/2024 1:14 PM EDT ESOPHAGOGASTRODUODENOSCOPY ( EGD), FLEXIBLE, TRANSORAL, DIAGNOSTIC Diarrhea, unspecified type History of diverticulitis 05/21/2024 1:14 PM EDT Health Maintenance Due Date Last Done Comments Alpha-1 Antitrypsin 1958 COVID-19 Vaccine (2022- season) 2023 06/09/2023, 09/10/2022, 04/09/2022, Additional history exists *SPIROMETRY ONCE FOR ASTHMA-ADULT 03/07/2024 Influenza Vaccine (FLU shot) (#1) 2024 05/13/2023, 05/15/2022, 05/22/2021, Additional history exists Diabetic Eye Exam 05/22/2024 05/22/2023, , 05/22/2023, Additional history exists HbA1c 06/08/2024 12/08/2023, 07/26, 02/21/2023, Additional history exists O2 ASSESSMENT COMPLETED IN PAST YEAR FOR COPD 07/31/2024 07/31/2023 CKD PHOS USE SMARTSET 36633 08/19/202407/26, 05/01/2022, 04/03/2022, Additional history exists GFR 09/02/2024 03/02/2024, 07/09/2023, 02/16/2024, Additional history exists Diabetic Foot Exam 09/15/2024 09/15/2023, 0 10/01/2022, 10/26/2021, Additional history exists Depression Monitoring 09/29/2024 09/29/2023 TSH 12/07/2024 12/08/2023, 08/26, 09/24/2022, Additional history exists Albumin/Creatinine Ratio 12/08/2024 024, 02/21/2023, 05/01/2022, Additional history exists CKD HGB USE SMARTSET 47477 03/02/202503/02, 02/12/2024, 02/12/2024, Additional history exists DXA [...] this encounter Medical Devices Implanted Type Area Primer Assembler Device Identifier Shelf Expiration Date Model / Serial / Lot Cath Thermodilution 6fr - [id number] Implanted:Qty: 1 on 01/24/2023 by Wilbur Rivera MD at [facility] [employer] TERE [id number] 10/15/2024 [id number] / / [id number] Clip Delivery Sytem G4 Xt - [id number] Implanted:Qty: 1 on 03/10/2023 at [facility] [employer] [id number] 04/15/2023 [id number] / / [id number] Clip Delivery Sytem G4 Xtw - [id number] Implanted:Qty: 1 on 03/10/2023 at [facility] [employer] [id number] 12/06/2023 [id number] TW / / [id number] [employer] G4 - [id number] Implanted:Qty: 1 on 03/10/2023 at [facility] [employer] 11/19/2023 [id number] / / [id number] Device Watchman Flx 31mm - [id number] Implanted:Qty: 1 on 07/31/2023 by Wilbur Rivera MD at [facility] [employer] : INTRV CARD [id number] 12/02/2025 [id number] / / [id number] documented as of this encounter Visit Diagnoses Diagnosis Compression fracture of T12 vertebra with routine healing, subsequent encounter- Primary Type 2 diabetes mellitus with stage 3b chronic kidney disease, without long-term current use of insulin (HCC) PVD (peripheral vascular disease) (HCC) Peripheral vascular disease, unspecified Diarrhea, unspecified type History of diverticulitis documented in this encounter Advance Directives Documents on File Type Date Recorded Patient Research Director Expl anation Advance Directives and Living Will 11/29/2022 ADVANCE DIRECTIVE / LIVING WILL Power of Wood Cabinetmaker 11/29/2022 POWER OF A TTORNEY Advance Directives and Living Will 10/24/2014 ADVANCE DIRECTIVE / LIVING WILL Power of Wood Cabinetmaker 10/24/2014 POWER OF A TTORNEY * Full [...] the patient have Health Care Power of Wood Cabinetmaker? No * No Code Date Activated Date [...] Agents on File Name Relationship Healthcare Agent [facility] Communication [facility] Adult Child Health Care Agen t (per Health Care Power of Wood Cabinetmaker document) [employer] Consultant Relationship Specialty Start Date End Date Florentin Calvo DO [address] [facility] [place] [address] PCP - General Internal Medicine 02/06/24 documented as of this encounter
--- OUTSIDE RECORDS SUMMARY | 2024-03-21 01:04 | External Medical Summary | Summary of Care ---
Author Name Unknown Organization [facility] Address [address] [place] [address] Phone [phone] Care Team Providers Care Custom Decorating Consultant Name Role Phone Florentin Calvo DO Primary Care Provider [phone] Reason for Referral * Evaluate & Treat - Unlimited Visits (Within 10 days (routine)) - Authorized Specialty Diagnoses / Procedures Referred By Danny mcdowell Referred To Contact Neuro/Ortho Surgery - Spine. / Neurological Surgery Diagnoses Compression fracture of T12 vertebra with routine healing, subsequent encounter Leandro Holly PA-C [address] [place] [address] Referral ID Status Reason Start Date Expiration Date Visits Requested Visits Authorized [id number] Authorized Specialty Services Required 03/11/[phone] Question Answer Referral Priority Within 10 days (routine) Where should this appointment be scheduled? [facility] spine region: Back - Thoracic/Lumbar Do you have any recent complete loss of bladder or bowel function? No Comments T12 compression fracture Encounter Details Date Type Department Care Team (Late st Contact Info) Description 03/10/2024 2:30 PM EDT Home Visit [facility] [place], [facility] [address] [place] [address] Leandro Holly PA-C [address] [place] [address] Becky Green, Community Health Education Intern [address] [place] [address] Compression fracture of T12 vertebra with routine healing, subsequent encounter*; Type 2 diabetes mellitus with stage 3b chronic kidney disease, without long-term current use of insulin (HCC); Paroxysmal atrial fibrillation (HCC); Presence of Watchman left atrial appendage closure device; Constipation, unspecified constipation type; Chronic obstructive pulmonary disease, unspecified COPD type (HCC); Closed fracture of multiple ribs of left side with routine healing, subsequent encounter Allergies Active Allergy Reactions Criticality [...] Dispensed Refills Start Date End Date Status CompumatrixTouch Verio w/Device KitIndications:Type 2 diabetes mellitus with [...] Active Ipratropium [place] 0.03 % Nasal Solution (Atrovent)Indicatio ns:Chronic rhinitis Administer 2 Sprays into nostril in the morning and 2 Sprays before bedtime. 90 mL 3 04/01/2023 Active Allopurinol 300 MG Oral Tablet (Zyloprim) Take 1 Tablet by mouth at bedtime. 90 Tablet 3 05/16/2023 Active Tiotropium [place]-Olodaterol 2.5-2.5 MCG/ACT Inhalation Aerosol Solution (Stiolto Respimat) Inhale 2 Puffs by mouth in the morning. 12 g 3 05/23/2023 Active Folic Acid 1 MG Oral TabletIndications:C hronic atrial fibrillation ([facility]) TAKE ONE [...] 02/12/2024 Active Torsemide 10 MG Oral Tablet (Demadex)Indication s:Chronic diastolic CHF (congestive heart failure) (HCC) Take 2 Tablets by mouth in the morning. 200 Tablet 3 02/24/2024 Active Diphenoxylate-Atrop ine 2.5-0.025 MG Oral Tablet (Lomotil)Indication s:Chronic diarrhea Take 1 Tablet by mouth 2 times a day as needed for Diarrhea. 60 Tablet 3 03/01/2024 Active Lidocaine 4 % External Patch (Aspercreme) Place 1 Patch topically on the skin daily. Active Apixaban 2.5 MG Oral Tablet (Eliquis)Indication [...] ounces of water or juice.. 03/12/2024 Active oxyCODONE HCl 5 MG Oral Tablet (Oxy IR)Indications:Clos ed fracture of multiple ribs of left side with routine healing, subsequent encounter Take 0.5 Tablets by mouth every 6 hours as needed for Pain, Moderate. 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 [facility] [place] Problem Oriented Charting Provider Visit Date: 03/10/2024 Time: 2:56 PM [facility] Sub-Program: Focused Care Management (3-9 months) Assessment and Plan #1 Compression fracture of T12 vertebra with routine healing, subsequent encounter (Primary) Assessment & Plan: Increased oxy from 2.5mg to 5mg [id number] prn Ortho spine ref, ?kyphoplasty Orders: - Spine Surgery Referral OP #2 Type 2 diabetes mellitus with stage 3b chronic kidney disease, without long- term current use of insulin (HCC) Assessment & Plan: "RED FLAG" Diabetic symptoms: Excessive Thirst, Confusion, and Vision Changes Goal HgbA1c <8 Diabetic Complications Vascular (examples: PVD, PAD, CAD, CVA) Renal (example: CKD, Proteinuria, Dialysis) Medication Regimen Lifestyle Modification / Monitoring ONLY DM Secondary Prevention Aspirin Yearly Diabetic Eye Exam Additional Comments Last A1c at goal #3 Paroxysmal atrial fibrillation (HCC) Assessment & Plan: Rate controlled Not on anticoag due to bleeding history Recently had watchman device placed #4 Presence of Watchman left atrial appendage closure device Overview: Per BRENDAN 11/03/23 There has been a significant reduction in the size of the thrombus on the Watchman, now measuring 0.9 cm (see image below). There is a trivial paradevice leak #5 Constipation, unspecified constipation type Assessment & Plan: Last bm 4 days ago Moderate amount retained stool on ct a/p 03/05 Advised miralax bid along with dulcolax tabs #6 Chronic obstructive pulmonary disease, unspecified COPD type (HCC) Assessment & Plan: +emphysema per imaging, but PFTs normal >1 year ago +23 pack year smoking history Continue spiriva Additional Medical Decision Making: Patient lives with spouse Son and daughter present for visit Daughter is visiting from [place] and will be staying until end of March Increase oxycodone to 5mg [id number] prn for pain Miralax bid and dulcolax daily for constipation, hold imodium or lomotil Will f/u by phone in 2 days Scheduled appointments in the next 60 days: Future Appointments-next 60 days Date/Time Provider Specialty Dept Phone 03/17/2024 1:40 PM (Arrive by 1:25 PM) Florentin Calvo DO Family Medicine [phone] 03/25/2024 8:30 AM (Arrive by 8:15 AM) Nereyda Metz CRNP Hematology Oncology [phone] 04/01/2024 11:00 AM Michelle Hurt RN [facility] Home [phone] 04/05/2024 11:[address] Radiology [phone] 04/14/2024 10:50 AM Aj Sahni MD Vascular Surgery [phone] 04/20/2024 3:40 PM (Arrive by 3:25 PM) Florentin Calvo DO Family Medicine [phone] 06/03/2024 2:15 PM Wilbur Benavides DO Ophthalmology [phone] 07/01/2024 2:30 PM (Arrive by 2:15 PM) Lacy Ronquillo CRNP Gastroenterology [phone] 08/09/2024 1:00 PM College, Nurse Annual Wellness Visit [address] [facility] Ancillary [phone] A total of 40 minutes was spent face to face (via video-based telemedicine if designated as a telemedicine visit) Subjective Subjective Is this a Telemedicine Visit? Yes, Patient location: HOME. I was not in a hospital or clinic location. After connecting through televideo, patient was verified with two unique identifiers. 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 Methods to assure confidentiality were taken. Patient acknowledged consent and understanding of privacy and security of the Telemedicine visit. The patient agreed to participate. Reason For [facility] Visit: Enrollment Current Concerns: Inga Barakat is a 83 year old female seen today for a [facility] provider visit. PMH includes DM2, pulmonary HTN, , CHF, CKD3, depression, afib s/p watchman device, PVD, pacemaker 03/07/24- [facility] ER - back pain, T12 fracture Today's concerns are: Persistent diarrhea Reports symptoms present approx 10 months Has been working with GI Using colestipol, but was not working and patient became nausea and d/c Recently started lomotil, previously using imodium CT a/p 03/05 - moderate amount retained stool throughout large bowel Patient denies vomiting Has been having some nausea and poor appetite Reports abdomen has "empty feeling" Last BM was sat 03/06 and was liquid Also continues to c/o back pain since fall Using oxycodone 2.5mg approx q6 hours Supplementing with APAP, but does not feel much relief Son lives less than 1 mile away Daughter in from [place], through March Additional Objective Objective Vitals: 03/10/24 1449 Temp: 36.9 C (98.5 F) Pulse: 67 SpO2: 94% BP: 120/50 Last Weights: Wt Readings from Last 3 Encounters: 02/24/24 73.9 kg (162 lb 14.4 oz) 02/17/24 74.8 kg (165 lb) 02/16/24 75 kg (165 lb 6.4 oz) Last BPs: BP Readings from Last 4 Encounters: 03/10/24 120/50 03/09/24 102/60 02/24/24 104/58 02/17/24 125/65 General: alert and no distress Neuro: alert & oriented x 3 with fluent speech Heart: regular rate & rhythm and no murmur Lungs: decreased breath sounds Abdomen: abdomen soft, non-tender, and hypoactive bowel sounds Lab Review: I have reviewed the following results: Imaging results in the last [address] ABD/PELVIS WO IV/ORAL CONTRAST Result Date: 03/09/2024 IMPRESSION: 1. No acute findings within the abdomen or pelvis. 2. Moderate degree of retained stoolthroughout the large bowel. Please correlate for constipation. 3. Multiple bilateral renal cysts difficult to adequately assess on this noncontrast study. 4. Additional chronic findings as above. COMMENTS: Consistent with the [employer]'s Incidental Findings Committee white paper(J Am Jennifer Radiol 2018): Any incidental renal lesion less than 1 cm or classified as too small to characterize, or any incidental cystic renal lesion characterized as simple-appearing, is likely benign. No follow-up imaging is recommended for these lesions per consensus recommendations based on imaging criteria. THIS DOCUMENT HAS BEEN ELECTRONICALLY SIGNED BY RILEY FRAZIER MD XR ABDOMEN 1 VIEW Result Date: 01/01/2024 IMPRESSION Nonspecific and nonobstructive bowel gas pattern. No significant amount of stool in the colon. XR ABDOMEN 1 VIEW Result Date: 11/27/2023 IMPRESSION Moderate colonic fecal material. BMP results Recent Labs Units 03/02/24 1031 02/24/24 1606 02/16/24 1203 SODIUM - [facility] mmol/L 137 139 138 POTASSIUM - [facility] mmol/L 4.3 4.9 4.6 CHLORIDE - [facility] mmol/L 99 101 101 CO2 - [facility] mmol/L 24 22 23 CREATININE - [facility] mg/dL 2.2* 1.8* 1.5* BUN - [facility] mg/dL 37* 40* 26* Lipid panel results Recent Labs Units 02/21/23 1231 CHOLESTEROL - [facility] mg/dL 99 LDL CHOLESTEROL (CALCULATED) - [facility] mg/dL 32 HDL CHOLESTEROL - [facility] mg/dL 49* TRIGLYCERIDES - [facility] mg/dL 89 CBC results Recent Labs Units 03/02/24 1031 02/12/24 1046 02/05/24 1159 WBC K/uL 10.20 9.38 8.01 HGB g/dL 11.0* 10.2* 10.2* HCT % 34.2* 32.0* 33.0* PLT K/uL 222 199 162 HbA1c results Recent Labs Units 12/08/23 1520 08/15/23 0000 02/21/23 1231 HEMOGLOBIN A1C - [facility] % 6.8* -- 6.5* HEMOGLOBIN, [id number] LAB -- 6.8* -- Leandro Holly PA-C 2:56 PM *Communication sent to PCP (via autofax if non[facility]), [facility] Health Care Team members,relevant Specialty Care Physicians* * Becky Green Community Health Education Intern - 03/10/2024 2:45 PM EDT Telemedicine visit: Yes Patient location: HOME. I was in a hospital or clinic location. After connecting through televideo,patient was verified with two unique identifiers. 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 Methods to assure confidentiality were taken. Patient acknowledged consent and understanding of pr ivacy and security of the Telemedicine visit. The patient agreed to participate. Community Health Education Intern (TRU) documentation: CHW facilitated telehealth visit with patient and son and daughter and spouse. Becky Green- Community Health Worker 1 Support Services/[facility] [employer] [email or web address] documented in this encounter Miscellaneous Notes * Assessment & Plan Note - Leandro Holly PA-C - 03/12/2024 12:32 PM EDT Associated Problem(s): Chronic obstructive pulmonary disease (HCC) +emphysema per imaging, but PFTs normal >1 year ago +23 pack year smoking history Continue spiriva * Assessment & Plan Note - Leandro Holly PA-C - 03/12/2024 12:25 PM EDT Associated Problem(s): Constipation Last bm 4 days ago Moderate amount retained stool on ct a/p 03/05 Advised miralax bid along with dulcolax tabs * Assessment & Plan Note - Leandro Holly PA-C - 03/12/2024 12:23 PM EDT Associated Problem(s): Paroxysmal atrial fibrillation (HCC) Rate controlled Not on anticoag due to bleeding history Recently had watchman device placed * Assessment & Plan Note - Leandro Holly PA-C - 03/12/2024 12:22 PM EDT Associated Problem(s): Type 2 diabetes mellitus with stage 3b chronic kidney disease, without long-term current use of insulin (HCC) "RED FLAG" Diabetic symptoms: Excessive Thirst, Confusion, and Vision Changes Goal HgbA1c <8 Diabetic Complications Vascular (examples: PVD, PAD, CAD, CVA) Renal (example: CKD, Proteinuria, Dialysis) Medication Regimen Lifestyle Modification / Monitoring ONLY DM Secondary Prevention Aspirin Yearly Diabetic Eye Exam Additional Comments Last A1c at goal * Assessment & Plan Note - Leandro Holly PA-C - 03/12/2024 12:20 PM EDT Associated Problem(s): Compression fracture of T12 vertebra (HCC) Increased oxy from 2.5mg to 5mg [id number] prn Ortho spine ref, ?kyphoplasty documented in this encounter Plan of Treatment Upcoming Encounters Date Type Department Care Team (Late st Contact Info) Description 03/17/2024 1:40 PM EDT Office Visit Family Practice [address], [place] [address] [place] [address] Florentin Calvo, DO [address] [facility], [place] [address] 03/25/2024 8:30 AM EDT [facility] [place] [address] [place], [place] [address] Nereyda Metz CRNP [address] [place] [address] 04/01/2024 11:00 AM EDT [facility] [address] [facility] [address] Michelle Hurt RN [address] [facility] [place] [address] 04/05/2024 11:00 AM EDT Imaging Vascular Lab, [facility] [address] [facility] [address] 04/14/2024 10:50 AM EDT Office Visit Vascular Surgery, [facility] [address] [facility] [address] Aj Sahni MD [address] [place] [address] 04/20/2024 3:40 PM EDT Office Visit Family Practice [address] [place] [address] [facility], [place] [address] Florentin Calvo, DO [address] [facility], [place] [address] 05/21/2024 1:14 PM EDT Hospital Encounter OR [facility], Operating Room, [facility] - 4th Floor [address] [facility] [place] [address] Jana Vieira, DO [address] [facility] [place] [address] 05/21/2024 1:14 PM EDT - 05/21/2024 1:59 PM EDT Surgery OR [facility], Operating Room, [facility] - 4th Floor [address] [facility] [address] Jana Vieira, DO [facility] [place] [address] COLONOSCOPY FLEXIBLE PROXIMAL DIAGNOSTIC 06/03/2024 2:15 PM EDT Office Visit Ophthalmology, [facility] [address] [facility] [place] [address] Wilbur Benavides, DO [facility] [place] [address] 07/01/2024 2:30 PM EST Office Visit Gastroenterology, [facility] [address] [facility] [place] [address] Lacy Ronquillo CRNP [address] [facility] [address] 08/09/2024 1:00 PM EST Nurse Only Ancillary [address] [facility] [address] [place] [address] College, Nurse Annual Wellness Visit [address] [place] [address] Scheduled Procedures Name Priority Associated Diagnoses Date/Ti me COLONOSCOPY FLEXIBLE PROXIMA L DIAGNOSTIC Diarrhea, unspecified type History of diverticulitis 05/21/2024 1:14 PM EDT ESOPHAGOGASTRODUODENOSCOPY ( EGD), FLEXIBLE, TRANSORAL, DIAGNOSTIC Diarrhea, unspecified type History of diverticulitis 05/21/2024 1:14 PM EDT Scheduled Referrals Name Type Priority Associated Diagnoses Orde r Schedule SPINE SURGERY REFERRAL OP Referral Within 10 days (routine) Compression fracture of T12 vertebra with routine healing, subsequent encounter Ordered: 03/11/2024 Health Maintenance Due Date Last Done Comments [...] COPD 07/31/2024 07/31/2023 CKD PHOS USE SMARTSET 58064 08/19/202407/26, 05/01/2022, 04/03/2022, Additional history exists GFR 09/02/2024 03/02/2024, 07/0 09/2023, 02/16/2024, Additional history exists Diabetic Foot Exam 09/15/2024 09/15/2023, 0 10/01/2022, 10/26/2021, Additional history exists Depression Monitoring 09/29/2024 09/29/2023 TSH 12/07/2024 12/08/2023, 08/26, 09/24/2022, Additional history exists Albumin/Creatinine Ratio 12/08/2024 024, 02/21/2023, 05/01/2022, Additional history exists CKD HGB USE SMARTSET 05073 03/02/202503/02, 02/12/2024, 02/12/2024, Additional history exists DXA [...] this encounter Medical Devices Implanted Type Area Bisque Kiln Drawer Device Identifier Shelf Expiration Date Model / Serial / Lot Cath Thermodilution 6fr - [id number] Implanted:Qty: 1 on 01/24/2023 by Wilbur Rivera MD at [facility] [employer] [employer] TERE [id number] 10/15/2024 [id number] / / [id number] Clip Delivery Sytem G4 Xt - [id number] Implanted:Qty: 1 on 03/10/2023 at [facility] [employer] [id number] 04/15/2023 [id number] / / [id number] Clip Delivery Sytem G4 Xtw - [id number] Implanted:Qty: 1 on 03/10/2023 at [facility] [employer] [id number] 12/06/2023 [id number] TW / / [id number] Mirtaclip G4 - [id number] Implanted:Qty: 1 on 03/10/2023 at [facility] [employer] 11/19/2023 [id number] / / [id number] Device Watchman Flx 31mm - [id number] Implanted:Qty: 1 on 07/31/2023 by Wilbur Rivera MD at [facility] [employer] : INTRV CARD [id number] 12/02/2025 [id number] documented as of this encounter Visit Diagnoses Diagnosis Compression fracture of T12 vertebra with routine healing, subsequent encounter- Primary Type 2 diabetes mellitus with stage 3b chronic kidney disease, without long-term current use of insulin (HCC) Paroxysmal atrial fibrillation (HCC) Atrial fibrillation Presence of Watchman left atrial appendage closure device Constipation, unspecified constipation type Chronic obstructive pulmonary disease, unspecified COPD type (HCC) Closed fracture of multiple ribs of left side with routine healing, subsequent encounter Diarrhea, unspecified type History of diverticulitis documented in this encounter Advance Directives Documents on File Type Date Recorded Patient Bankruptcy Legal Assistant Expl anation Advance Directives and Living Will 11/29/2022 ADVANCE DIRECTIVE / LIVING WILL Power of Medical Coding Specialist 11/29/2022 POWER OF A TTORNEY Advance Directives and Living Will 10/24/2014 ADVANCE DIRECTIVE / LIVING WILL Power of Medical Coding Specialist 10/24/2014 POWER OF A TTORNEY * [...] the patient have Health Care Power of Medical Coding Specialist? No * No Code Date Activated [...] Agents on File Name Relationship Healthcare Agent [facility] p Communication Bright Barakat Adult Child Health Care Agen t (per Health Care Power of Medical Coding Specialist document) Care Teams Custom Decorating Consultant Relationship Specialty Start Date End Date Florentin Calvo DO [address] [place] [address] PCP - General Internal Medicine 02/06/24 documented as of this encounter
--- OUTSIDE RECORDS SUMMARY | 2024-03-21 01:04 | External Medical Summary | Summary of Care ---
Author Name Unknown Organization [facility] Address [address] [place] [address] Phone [phone] Care Team Providers Care Surgery Teacher Name Role Phone Florentin Calvo DO Primary Care Provider [phone] Reason for Visit * Reason Onset Date Comments Medication Refill 03/09/2024 Encounter Details Date Type Department Care Team (Late st Contact Info) Description 03/09/2024 Refill Cardiology, [facility] [address] [facility] [place] [address] Stephen Hewitt DO 132 [place] [address] Paroxysmal atrial fibrillation (HCC)* Allergies Active Allergy Reactions Criticality Noted Date [...] as of this encounter (statuses as of 03/09/2024) Medications Medication Sig Dispensed Refills Start Date End Date Status [employer] w/Device KitIndications:Type 2 diabetes mellitus with hemoglobin [...] DIRECTED 100 Tablet 3 03/31/2023 Active Ipratropium [place] 0.03 % Nasal Solution (Atrovent)Indicatio ns:Chronic rhinitis Administer 2 Sprays into nostril in the morning and 2 Sprays before bedtime. 90 mL 3 04/01/2023 Active Allopurinol 300 MG Oral Tablet (Zyloprim) Take 1 Tablet by mouth at bedtime. 90 Tablet 3 05/16/2023 Active Tiotropium [place]-Olodaterol 2.5-2.5 MCG/ACT Inhalation Aerosol Solution (Stiolto Respimat) [...] 6 tablets per day (3000 mg) Active oxyCODONE HCl 5 MG Oral Tablet (Oxy IR)Indications:Clos ed fracture of multiple ribs of left side with routine healing, subsequent encounter Take 0.5 Tablets by mouth every 6 hours as needed for Pain, Moderate. 30 Tablet 01/20/2024 Active Pantoprazole Sodium 40 MG Oral Tablet [...] before bedtime. 60 Tablet 2 03/09/2024 Active Apixaban 2.5 MG Oral Tablet (Eliquis) Take 1 Tablet by mouth in the morning and 1 Tablet before bedtime. 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 06/09/2023 Covid-19, Mrna, Lnp-s, Pf, B [...] or do you have serious difficulty hearing? No-[facility] [place] can hear w/ hearing aid 03/07/2023 Are [...] encounter Miscellaneous Notes * Telephone Encounter - Wai Alva CRNP - 03/09/2024 2:49 PM EDT Signed Prescriptions: Disp Refills Apixaban 2.5 MG Oral Tablet (Eliquis) 60 Tab*2 Sig: Take 1 Tablet by mouth in the morning and 1 Tablet before bedtime.Authorizing Provider: WAI ALVA----- documented in this encounter Plan of Treatment Upcoming Encounters Date Type Department Care Team (Late st Contact Info) Description 03/10/2024 2:30 PM EDT [facility] [address] [place] [address] Leandro Holly PA-C [address] [place] [address] Becky Green, Community Health Rotary D[employer] Feeder [address] [place] [address] 03/17/2024 1:40 PM EDT Office Visit Family Practice 65 [facility] [place] [address] [place] [address] Florentin Calvo, DO 293 [facility], [place] [address] 03/25/2024 8:30 AM EDT Office Visit Hematology/Oncolog y [facility] [address] [place] [address] Nereyda Metz CRNP 400 [place] [address] 04/01/2024 11:00 AM EDT [facility] Visit [facility] 132 [facility] [place] [address] Michelle Hurt RN 132 [facility] [address] 04/05/2024 11:00 AM EDT Imaging Vascular Lab, [facility] 2nd [facility] [address] [facility] [place] [address] 04/14/2024 10:50 AM EDT Office Visit Vascular Surgery, [facility] [address] [facility] [place] [address] Aj Sahni MD [address] [place] [address] 04/20/2024 3:40 PM EDT Office Visit Family Practice 65 [facility] 293 [facility], [place] [address] Florentin Calvo, DO 293 [facility], [place] [address] 05/21/2024 1:14 PM EDT Hospital Encounter [facility], Operating Room, [facility] - 4th Floor 400 [facility] [place] [address] Jana Vieira, DO 132 [facility] [place] [address] 05/21/2024 1:14 PM EDT - 05/21/2024 1:59 PM EDT Surgery [facility], Operating Room, [facility] - 4th Floor 400 [facility] [place] [address] Jana Vieira, DO [address] [facility] [place] [address] COLONOSCOPY FLEXIBLE PROXIMAL DIAGNOSTIC 06/03/2024 2:15 PM EDT Office Visit Ophthalmology, [facility] 132 [facility] [place] [address] Wilbur Benavides, DO [facility] [place] [address] 07/01/2024 2:30 PM EST Office Visit [facility]astroenterology, [facility] [place] [address] Lacy Ronquillo CRNP [facility] [place] [address] 08/09/2024 1:00 PM EST Nurse Only Ancillary 65 [facility] 293 [facility], [place] [address] College, Nurse Annual Wellness Visit [address] [place] [address] Scheduled Procedures Name Priority Associated Diagnoses Date/Ti me COLONOSCOPY FLEXIBLE PROXIMA L DIAGNOSTIC Diarrhea, unspecified type History of diverticulitis 05/21/2024 1:14 PM EDT ESOPHAGOGASTRODUODENOSCOPY ( EGD), FLEXIBLE, TRANSORAL, DIAGNOSTIC Diarrhea, unspecified type History of diverticulitis 05/21/2024 1:14 PM EDT Health Maintenance Due Date Last Done Comments COVID-19 Vaccine (2022- season) 2023 06/09/2023, 09/10/2022, 04/09/2022, Additional history exists *SPIROMETRY ONCE FOR ASTHMA-ADULT 03/07/2024 Influenza Vaccine (FLU shot) (#1) 2024 05/13/2023, 05/15/2022, 05/22/2021, Additional history exists Diabetic Eye Exam 05/22/2024 05/22/2023, , 05/22/2023, Additional history exists HbA1c 06/08/2024 12/08/2023, 07/26, 02/21/2023, Additional history exists CKD PHOS USE SMARTSET 41143 08/19/202407/26, 05/01/2022, 04/03/2022, Additional history exists GFR 09/02/2024 03/02/2024, 07/0 09/2023, 02/16/2024, Additional history exists Diabetic Foot Exam 09/15/2024 09/15/2023, 0 10/01/2022, 10/26/2021, Additional history exists Depression Monitoring 09/29/2024 09/29/2023 TSH 12/07/2024 12/08/2023, 08/26, 09/24/2022, Additional history exists Albumin/Creatinine Ratio 12/08/2024 024, 02/21/2023, 05/01/2022, Additional history exists CKD HGB USE SMARTSET 67584 03/02/202503/02, 02/12/2024, 02/12/2024, Additional history exists DXA [...] this encounter Medical Devices Implanted Type Area Photoengraving Proofer Device Identifier Shelf Expiration Date Model / Serial / Lot Cath Thermodilution 6fr - [id number] Implanted:Qty: 1 on 01/24/2023 by Wilbur Rivera MD at [facility] [employer] [id number] 10/15/2024 [id number] / / [id number] Clip Delivery Sytem G4 Xt - [id number] Implanted:Qty: 1 on 03/10/2023 at [facility] [employer] [id number] 04/15/2023 [id number] / / [id number] Clip Delivery Sytem G4 Xtw - [id number] Implanted:Qty: 1 on 03/10/2023 at [facility] [employer] [id number] 12/06/2023 [id number] / / [id number] Mirtaclip G4 - [id number] Implanted:Qty: 1 on 03/10/2023 at [facility] [employer] 11/19/2023 [id number] / / [id number] Device Watchman Flx 31mm - [id number] Implanted:Qty: 1 on 07/31/2023 by Wilbur Rivera MD at [facility] [employer] : INTRV CARD [id number] 12/02/2025 [id number] / / [id number] documented as of this encounter Visit Diagnoses Diagnosis Paroxysmal atrial fibrillation (HCC)- Primary Atrial fibrillation Diarrhea, unspecified type History of diverticulitis documented in this encounter Advance Directives Documents on File Type Date Recorded 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 No * No Code Date Activated [...] Agents on File Name Relationship Healthcare Agent [facility] Communication Bright Barakat Adult Child Health Care Frieda t (per Health Care Power of Counter Sales Person document) Care Teams Surgery Teacher Relationship Specialty Start Date End Date Florentin Calvo DO [address] [place] [address] PCP - General Internal Medicine 02/06/24 documented as of this encounter
--- OUTSIDE RECORDS SUMMARY | 2024-03-21 01:05 | External Medical Summary | Summary of Care ---
Author Name Unknown Organization [facility] Address [address] [place] [address] Phone [phone] Care Team Providers Care Director Of The [facility] Facility Name Role Phone Florentin Calvo DO Primary Care Provider [phone] Reason for Visit * Reason Onset Date Comments Appointment 03/09/2024 Encounter Details Date Type Department Care Team (Late st Contact Info) Description 03/09/2024 Telephone [facility] [place] [address] [place] [address] Felicitas Starks OSA [address] [place] [address] Appointment Allergies Active Allergy Reactions Criticality Noted [...] Dispensed Refills Start Date End Date Status [employer] w/Device KitIndications:Type 2 diabetes mellitus with [...] Wheezing. 15 g 12 06/13/2022 Active OneTouch VeriGoOn s.r.l. In Vitro Strip (Glucose Blood) Test blood sugars up to 2 times a day E11.9 200 Strip 3 12/20/2022 Active Atorvastatin Calcium 20 MG Oral Tablet (Lipitor)Indications :PVD (peripheral vascular disease) ([facility]),Type 2 diabetes mellitus with stage 3a chronic kidney disease and hypertension ([facility]) TAKE ONE TABLET BY MOUTH EVERY DAY DIRECTED 100 Tablet 3 03/31/2023 Active Ipratropium [place] 0.03 % Nasal Solution (Atrovent)Indication s:Chronic rhinitis Administer 2 Sprays into nostril in the morning and 2 Sprays before bedtime. 90 mL 3 04/01/2023 Active Allopurinol 300 MG Oral Tablet (Zyloprim) Take 1 Tablet by mouth at bedtime. 90 Tablet 3 05/16/2023 Active Tiotropium [place]-Olodaterol 2.5-2.5 MCG/ACT Inhalation Aerosol Solution (Stiolto Respimat) [...] 1 Capsule by mouth at bedtime. Active Apixaban 2.5 MG Oral Tablet (Eliquis) Take 1 Tablet by mouth in the morning and 1 Tablet before bedtime. 60 Tablet 2 12/22/2023 Active Acetaminophen 500 MG Oral Tablet (Tylenol) [...] Patch topically on the skin daily. 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 (Household - for ages [...] or do you have serious difficulty hearing? No-[place] can hear w/ hearing aid 03/07/2023 [...] encounter Miscellaneous Notes * Telephone Encounter - Felicitas Starks OSA - 03/09/2024 11:13 AM EDT TT Request from Michelle Hurt - removed Mani Hernandez appointment and scheduled Inga Barakat for March 10 at 2:30 pm with Avni/Norma. Michelle will inform the patient. documented in this encounter Plan of Treatment Upcoming Encounters Date Type Department Care Team (Late st Contact Info) Description 03/10/2024 2:30 PM EDT Home Visit [facility] 132 [facility] [place] [address] Leandro Holly PA-C 132 [facility] [place] [address] Becky Green, Community Health Senior Bioinformatics Specialist [address] [place] [address] 03/17/2024 1:40 PM EDT Office Visit Family Practice 65 [facility] [address] [place] [address] Florentin Calvo, [address] [place] [address] 03/25/2024 8:30 AM EDT Office Visit Hematology/Oncolog y [facility] [address] [place] [address] Nereyda Metz CRNP 400 [facility] [place] [address] 04/01/2024 11:00 AM EDT [facility] Visit [facility] 132 [facility] [place] [address] Michelle Hurt RN [address] [place] [address] 04/05/2024 11:00 AM EDT Imaging Vascular Lab, [facility] 2nd [facility] 132 [facility] [place] [address] 04/14/2024 10:50 AM EDT Office Visit Vascular Surgery, [facility] 132 [facility] [place] [address] Aj Sahni MD [address] [place] [address] 04/20/2024 3:40 PM EDT Office Visit [facility] 65 [facility] 293 [place] [address] Florentin Calvo, DO [address] [place] [address] 05/21/2024 1:14 PM EDT Hospital Encounter OR [facility], Operating Room, [facility] - 4th Floor 400 [place] [address] Jana Vieira, DO 132 [facility] [place] [address] 05/21/2024 1:14 PM EDT - 05/21/2024 1:59 PM EDT Surgery OR [facility], Operating Room, [facility] - 4th Floor 400 [facility] [place] [address] Jana Vieira, DO 132 [facility] [place] [address] COLONOSCOPY FLEXIBLE PROXIMAL DIAGNOSTIC 06/03/2024 2:15 PM EDT Office Visit Ophthalmology, [facility] 132 [facility] [place] [address] Wilbur Benavides, DO [address] [place] [address] 07/01/2024 2:30 PM EST Office Visit Gastroenterology, [facility] [address] [place] [address] Lacy Ronquillo CRNP 132 [facility] [place] [address] 08/09/2024 1:00 PM EST Nurse Only Ancillary 65 [facility] [place] 293 [place] [address] College, Nurse Annual Wellness Visit 65 [facility] 293 [facility], [place] [address] Scheduled Procedures Name Priority Associated Diagnoses Date/Ti [...] Additional history exists CKD PHOS USE SMARTSET 38977 08/19/202407/26, 05/01/2022, 04/03/2022, Additional history exists GFR 09/02/2024 03/02/2024, 0709/2023, 02/16/2024, Additional history exists Diabetic Foot Exam 09/15/2024 09/15/2023, 0 10/01/2022, 10/26/2021, Additional history exists Depression Monitoring 09/29/2024 09/29/2023 TSH 12/07/2024 12/08/2023, 08/26, 09/24/2022, Additional history exists Albumin/Creatinine Ratio 12/08/2024 024, 02/21/2023, 05/01/2022, Additional history exists CKD HGB USE SMARTSET 34778 03/02/202503/02, 02/12/2024, 02/12/2024, Additional history exists DXA [...] encounter Medical Devices Implanted Type Area Teacher Of The Sight Impaired Device Identifier Shelf Expiration Date Model / Serial / Lot Cath Thermodilution 6fr - [id number] Implanted:Qty: 1 on 01/24/2023 by Wilbur Rivera MD at [facility] [employer] TERE [id number] 10/15/2024 [id number] / / [id number] Clip Delivery Sytem G4 Xt - [id number] Implanted:Qty: 1 on 03/10/2023 at [facility] [employer] [id number] 04/15/2023 [id number] / / [id number] Clip Delivery Sytem G4 Xtw - [id number] Implanted:Qty: 1 on 03/10/2023 at [facility] [employer] [id number] 12/06/2023 [id number] TW / / [id number] Mirtaclip G4 - [id number] Implanted:Qty: 1 on 03/10/2023 at [facility] [employer] 11/19/2023 [id number] / / [id number] Device Watchman Flx 31mm - [id number] Implanted:Qty: 1 on 07/31/2023 by Wilbur Rivera MD at [facility] [employer] : INTRV CARD [id number] 12/02/2025 [id number] / / [id number] documented as of this encounter Advance Directives Documents on File Type Date Recorded 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 No * No Code Date Activated Date [...] Agents on File Name Relationship Healthcare Agent [facility] Communication Bright Barakat Adult Child Health Care Frieda t (per Health Care Power of Office Machines Teacher document) Care Teams Director Of The [facility] Facility Relationship Specialty Start Date End Date Florentin Calvo DO 293 [facility] [place] [address] PCP - General Internal Medicine 02/06/24 documented as of this encounter
--- OUTSIDE RECORDS SUMMARY | 2024-03-21 01:05 | External Medical Summary | Summary of Care ---
Author Name Unknown Organization [facility] Address [address] [place] [address] Phone [phone] Care Team Providers Care Waste Disposal Leakage Tester Name Role Phone Florentin Calvo DO Primary Care Provider [phone] Reason for Referral * Evaluate & Treat - Unlimited Visits (Within 3 days (urgent)) - Authorized Specialty Diagnoses / Procedures Referred By Danny mcdowell Referred To Contact Hospice and Palliative Medicine / Palliative Medicine Diagnoses Chronic diastolic CHF (congestive heart failure) (HCC) 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 claudication Nilay James DO [address] [place] [address] Referral ID Status Reason Start Date Expiration Date Visits Requested Visits Authorized [id number] Authorized Specialty Services Required 03/09/[phone] Question Answer Referral Priority Within 3 days (urgent) Where should this appointment be scheduled? [facility] Reason for Referral: Heart Failure Palliative Medicine To Address: Pain & Symptom Management Referral Location [facility] - Palliative Care (Available only for [facility]) Reason for Visit * Reason Comments [facility]: Maintenance Encounter Details Date Type Department Care Team (Late st Contact Info) Description 03/09/2024 10:00 AM EDT Home Visit [facility], [address] [place] [address] Michelle Hurt RN [address] [place] [address] Chronic diastolic CHF (congestive heart failure) ([facility])*; 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 claudication Allergies Active Allergy Reactions Criticality Noted Date Comments Azithromycin Other (Please comment) 12/04/2021 QTC prolongation at [facility] Celecoxib Hives,Rash High 03/24/2013 Other reaction(s): Rash/Hives/Itching. [...] Dispensed Refills Start Date End Date Status Trellis AutomationTouch Verio w/Device KitIndications:Type 2 diabetes mellitus with [...] Wheezing. 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 90 mL 3 04/01/2023 Active Allopurinol 300 MG Oral Tablet (Zyloprim) Take 1 Tablet by mouth at bedtime. 90 Tablet 3 05/16/2023 Active Tiotropium Stanton-Olodaterol 2.5-2.5 MCG/ACT Inhalation Aerosol Solution (Stiolto Respimat) Inhale 2 Puffs by mouth in the morning. 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 Last Assessment & Plan: Now just using [...] MCG/0.3 mL, 12 YRS AND ABOVE, IM (Guided Interventions-Comirnat) 06/09/2023 Covid-19, Mrna, Lnp-s, Pf, B ivalent, [...] Sign Reading Time Taken Comments Blood Pressure 102/60 03/09/2024 10:38 AM EDT Pulse 82 03/09/2024 10:38 AM EDT Temperature 36.4 C (97.6 F) 03/09/2024 10:38 AM E DT Respiratory Rate 18 03/09/2024 10:38 AM EDT Oxygen Saturation 98% 03/09/2024 10:38 AM EDT Inhaled Oxygen Concentration - - Weight - - Height - - Body Mass Index - - documented in this encounter Functional Status Functional Status Response Date of Assess ment Are you deaf or do you have serious difficulty hearing? 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 Visit Date: 03/09/2024 Time: 10:21 AM Name: Inga Barakat : 1940 Current Concerns: Pt seen for return RNCM visit Had a fall at the [employer] on February 25, had slid out of the liu- she felt an injury right awayand hips/back, pain all the way up to shoulders, but did not go to ED d/t it being the holiday and afraid of it being too busy She was in severe pain for several days and then had trouble getting out of bed so dtr called for ambulance Found to have fracture of T12 - had morphine in hospital and had pain relief Has oxycodone in the home but does not really help - states it takes the "edge off" but it causes nausea, poor appetite Has also been having diarrhea and had CT scan but results are pending Getting [facility] PT and OT services Pt reports low back pain 7/10 with sitting in recliner chair It was worse with lying in bed and also worse with movement Severity depends on movement and with positioning but the pain is constant Pt/family interested in getting [facility] palliative services for pain and symptom management Palliative referral placed Scheduling notified to get appointment nita as pain is not controlled with current regimen Appointment available for tomorrow and to be scheduled for 3pm with provider Physical Exam: BP 102/60 | Pulse 82 | Temp 36.4 C (97.6 F) | Resp 18 | SpO2 98% Pain 7 Physical Exam Constitutional: General: She is not in acute distress. Cardiovascular: Rate and Rhythm: Normal rate and regular rhythm. Pulses: Normal pulses. Heart sounds: Normal heart sounds. Pulmonary: Effort: Pulmonary effort is normal. Breath sounds: Normal breath sounds. Abdominal: General: Bowel sounds are normal. Palpations: Abdomen is soft. Skin: General: Skin is warm and dry. Neurological: Mental Status: She is alert and oriented to person, place, and time. Problems/Symptoms: Review of Systems Constitutional: Negative. HENT: Negative. Eyes: Negative. Respiratory: Positive for shortness of breath (VELASCO - at baseline). Gastrointestinal: Positive for abdominal pain and diarrhea. Genitourinary: Negative. Musculoskeletal: Positive for arthralgias, back pain and gait problem. Skin: Negative. Psychiatric/Behavioral: Negative. Medication Reconciliation: (See medication list) Does patient take medications as ordered: Yes Patient Well Being: PHQ2/9: No questionnaires available. No change in living situation [facility]-10 Completed this Visit: Yes. [facility]-10: Reason Completed: Status post fall Status post ED visit/hospital admission [facility]-10 ([facility]) Fall Risk Assessment Tool Age 65+: Yes (03/09/241099) Diagnosis (3 or more co-existing): Yes (03/09/241099) Prior history of falls within 3 months: Yes (03/09/241099) Incontinence: No (03/09/241099) Visual impairment: No (03/09/241099) Impaired functional mobility: Yes (03/09/241099) Environmental hazards: No (03/09/241099) Poly Pharmacy (4 or more prescriptions - any type): Yes (03/09/241099) Pain affecting level of function: Yes (03/09/241099) Cognitive impairment: No (03/09/241099) Score - a score of 4 or more is considered at risk for fallin (03/09/241099) [facility]-10 Interventions: Fall education provided, reviewed/provided Fall brochure Advanced Care Planning: Living Will. and Healthcare POA. Reinforcement/Education: Educated on home safety: Create a fall [...] exercises that will be right for you. Reviewed HF symptom monitoring: -Weigh self daily [...] if at night -increased fatigue or vertigo Reinforced safety education and fall prevention. and Reinforced medication regimen. Timing., Dosing., and Purspose. Treatment/Plan: Continue meds as prescribed/reviewed Weigh self 3x a week and record Fall precautions, slow position change, use walker at all times Keep all appts as scheduled [facility] physical therapy at home Palliative referral for pain/symptom management Home Interventions Provided: Home Intervention: Other; eval Specialty Referral Placed Reinforced current Plan of Care, including self-management and medication regimen Patient's 'Red Flags': Increased SOB above baseline Wt gain of 2-3 lbs in 24 hrs or 5 lbs in one week Increased weakness/fatigue Patient Needs to Remember: Call [facility] at with any new or worsening health concerns or problems, red flag symptoms. Referrals Needed: Other palliative Follow Up: Is there cellular connectivity/connectivity in the home? Yes Does the patient have internet in the home? Yes Patient encouraged to call the intake phone number for all urgent but not emergent issues. Is the patient new to [facility] within the last 30 days? No, Assess appropriateness for upcoming telehealth visits. Cancel telehealth visits & schedule home visit with care bridge/structure inspection team leader(s)as indicated. Provider is in agreement with Plan of Care: Yes Scheduled to follow up with patient in 24 hrs with provider. Michelle Hurt RN 03/09/2024 10:21 AM documented in this encounter Plan of Treatment Upcoming Encounters Date Type Department Care Team (Late st Contact Info) Description 03/10/2024 2:30 PM EDT [facility] [address] [place] [address] Leandro Holly PA-C [address] [place] [address] Becky Green, Community Health Hostage Negotiator [address] [place] [address] 03/17/2024 1:40 PM EDT Office Visit Family Practice [address] [place] [address] [address] [place] [address] Florentin Calvo, [address] [place] [address] 03/25/2024 8:30 AM EDT Office Visit Hematology/Oncolog y [facility] [address] [facility] [place] [facility] [place] [id number] Nereyda Metz CRNP [address] [place] [address] 04/01/2024 11:00 AM EDT Home Visit [facility], [facility] [address] [facility] [place] [address] Michelle Hurt, RN [address] [facility] [place] [address] 04/05/2024 11:00 AM EDT [facility] [address] [facility] [place] [address] 04/14/2024 10:50 AM EDT Office Visit Vascular Surgery, [facility] [address] [facility] [place] [address] Aj Sahni MD [address] [place] [address] 04/20/2024 3:40 PM EDT Office Visit Family Practice [address] [place] [address] [address] [place] [address] Florentin Calvo, [address] [place] [address] 05/21/2024 1:14 PM EDT Hospital Encounter OR [facility], Operating Room, [facility] - 4th Floor [address] [place] [address] Jana Vieira, DO [address] [place] [address] 05/21/2024 1:14 PM EDT - 05/21/2024 1:59 PM EDT Surgery OR [facility], Operating Room, [facility] - 4th Floor [address] [place] [address] Jana Vieira, DO [address] [place] [address] COLONOSCOPY FLEXIBLE PROXIMAL DIAGNOSTIC 06/03/2024 2:15 PM EDT Office Visit Ophthalmology, [facility] [address] [facility] [place] [address] Wilbur Benavides, DO [address] [facility] [place] [address] 07/01/2024 2:30 PM EST Office Visit Gastroenterology, [facility] [address] [facility] [place] [address] Lacy Ronquillo CRNP [address] [place] [address] 08/09/2024 1:00 PM EST Nurse Only Ancillary [address] [facility] [address] [place] [address] College, Nurse Annual Wellness Visit [address] [address] Scheduled Procedures Name Priority Associated Diagnoses Date/Ti me COLONOSCOPY FLEXIBLE PROXIMA L DIAGNOSTIC Diarrhea, unspecified type History of diverticulitis 05/21/2024 1:14 PM EDT ESOPHAGOGASTRODUODENOSCOPY ( EGD), FLEXIBLE, TRANSORAL, DIAGNOSTIC Diarrhea, unspecified type History of diverticulitis 05/21/2024 1:14 PM EDT Scheduled Referrals Name Type Priority Associated Diagnoses Orde r Schedule PALLIATIVE CARE REFERRAL OP Referral Within 3 days (urgent) Chronic diastolic CHF (congestive heart failure) (HCC) 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 claudication Ordered: 03/09/2024 Health Maintenance Due Date Last Done Comments COVID-19 Vaccine ( season) 2023 06/09/2023, 09/10/2022, 04/09/2022, Additional history exists *SPIROMETRY ONCE FOR ASTHMA-ADULT 03/07/2024 Influenza Vaccine (FLU shot) (#1) 2024 05/13/2023, 05/15/2022, 05/22/2021, Additional history exists Diabetic Eye Exam 05/22/2024 05/22/2023, , 05/22/2023, Additional history exists HbA1c 06/08/2024 12/08/2023, 07/26, 02/21/2023, Additional history exists CKD PHOS USE SMARTSET 32179 08/19/202407/26, 05/01/2022, 04/03/2022, Additional history exists GFR 09/02/2024 03/02/2024, 07/0 09/2023, 02/16/2024, Additional history exists Diabetic Foot Exam 09/15/2024 09/15/2023, 0 10/01/2022, 10/26/2021, Additional history exists Depression Monitoring 09/29/2024 09/29/2023 TSH 12/07/2024 12/08/2023, 08/26, 09/24/2022, Additional history exists Albumin/Creatinine Ratio 12/08/2024 024, 02/21/2023, 05/01/2022, Additional history exists CKD HGB USE SMARTSET 32293 03/02/202503/02, 02/12/2024, 02/12/2024, Additional history exists DXA [...] this encounter Medical Devices Implanted Type Area Ebay Reseller Device Identifier Shelf Expiration Date Model / Serial / Lot Cath Thermodilution 6fr - [id number] Implanted:Qty: 1 on 01/24/2023 by Wilbur Rivera MD at [facility] [employer] [id number] 10/15/2024 [id number] / / [id number] Clip Delivery Sytem G4 Xt - [id number] Implanted:Qty: 1 on 03/10/2023 at [facility] [employer] [id number] 04/15/2023 [id number] / / [id number] Clip Delivery Sytem G4 Xtw - [id number] Implanted:Qty: 1 on 03/10/2023 at [facility] [id number] 12/06/2023 [id number] / / [id number] Mirtaclip G4 - [id number] Implanted:Qty: 1 on 03/10/2023 at [facility] [employer] 11/19/2023 [id number] / / [id number] Device Watchman Flx 31mm - [id number] Implanted:Qty: 1 on 07/31/2023 by Wilbur Rivera MD [place] [facility] [employer] : INTRV CARD [id number] 12/02/2025 [id number] / / [id number] documented as of this encounter Visit Diagnoses Diagnosis Chronic diastolic CHF (congestive heart failure) (HCC)- Primary Chronic diastolic heart failure 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 claudication Spinal stenosis, lumbar region, without neurogenic claudication Diarrhea, unspecified type History of diverticulitis documented in this encounter Advance Directives Documents on File Type Date Recorded 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 No * No Code Date Activated [...] File Name Relationship Healthcare Agent [facility] p Communication [facility] Child Health Care Agen t (per Health Care Power of Health Analyst document) Care Teams Waste Disposal Leakage Tester Relationship Specialty Start Date End Date Florentin Calvo DO [address] [place] [address] PCP - General Internal Medicine 02/06/24 documented as of this encounter
--- NOTE | 2024-03-21 01:40 | Emergency Department Note ---
Impression & Plan Low back pain, Generalized weakness ED Provider Note ED Provider Note NAME: LORI MORALES AGE:83 SEX: Female : 1940 ARRIVES VIA: Private vehicle INFORMANT: Patient ED PROVIDER(s): Lissette Benavidez DO CHIEF COMPLAINT: Left low back pain HPI: This is an 83-year-old female presents emerged part due to worsening left low back pain. Patient states she has had back pain ever since a fall at the beginning of the month and was ultimately diagnosed with a T12 compression fracture. She states in the last 2 days her left low back has been worse than normal. No recurrent falls or trauma. Patient does have pain medication she has been taking at home, however despite the fentanyl patch, oxycodone, and other routine meds she is still having worsening pain. No recent fevers or chills, no nausea or vomiting. No recent change in urine or urinary habits. Patient has had difficulty with her bowel movements recently and does take miralax daily. She did have a normal bowel movement earlier today. PAST MEDICAL HISTORY:See Below PAST SURGICAL HISTORY:See Below FAMILY HISTORY:See Below SOCIAL HISTORY:See Below HOME MEDICATIONS:See Below ALLERGIES:See Below VITALS:See Below PHYSICAL EXAMINATION: GENERAL: alert, uncomfortable appearing, well nourished, no distress, non-toxic EYE EXAM: normal conjunctiva, PERRL and EOM's grossly intact OROPHARYNX: no exudate, no erythema, lips, buccal mucosa, and tongue normal and mucous membranes are moist NECK: supple, no nuchal rigidity, no adenopathy, non-tender LUNGS: Clear to auscultation. Normal chest wall mechanics, no w/r/r HEART: no murmurs, S1 normal and S2 normal ABDOMEN: abdomen soft, non-tender, normo-active bowel sounds, no masses, no rebound or guarding. BACK: Back is symmetrical on inspection and there is no deformity, mid back midline tenderness, no CVA tenderness. Pain with palpation over the left lateral lumbar region additionally. Lidoderm patch in place. SKIN: no rashes, petechiae, orbruising UPPER EXTREMITIES: upper extremities are grossly normal. FROM, nml pulses b/l. LOWER EXTREMITIES: No pitting edema. FROM, nml pulses b/l. NEURO EXAM: Normal sensorium, cranial nerves II-XII grossly intact, normal speech, no facial droop,nogross weakness of arms, no gross weakness of legs. Gross sensation intact. No ataxia. Vital Signs: reviewed and remarkable Differential Diagnosis: lumbar radiculopathy, muscle strain, facture, cauda equina, mass, disc herniation, ureterolithiasis, UTI, AAA, dissection, as well as others were considered MEDICAL DECISION MAKING: This is an 83-year-old female presents emerged from due to concern for worsening left lateral lumbar back pain. Patient with recent fall and compression fracture at T12. Patient has been taking multiple pain medications at home including a fentanyl patch, oxycodone, topical Lidoderm patch. She avoids NSAIDs due to history of CKD. Patient with increased weakness and limitations of movement due to worsening pain. Family brought her in due to persistent pain despite home meds with concern for possible other pathology including kidney stone. Patient was afebrile and vital signs stable. Labs drawn and sent, IV established, EKG performed at bedside interpreted by me and patient monitored on telemetry. She was sent for CT of the lumbar spine as well as CT abdomen and pelvis. No new findings noted, T12 compression fracture again seen. Patient was given IV Tylenol and IV morphine for pain with improvement. Due to persistent pain, limitations with movement, and failed outpatient management of her pain, case discussed with the hospitalist team for additional evaluation and management. Urine specimen had not been yet provided or obtained at this point in time, this was conveyed to the hospitalist. Consultation(s): 0508: Discussed with Dr. Holliday, [facility] hospitalist, for additional evaluation and mgmt. ER Treatment Provided: See below Diagnostics Interpreted By Me: -ECG: Atrial flutter with a rate of 82, normal axis, normal intervals, nonspecific ST/T wave changes -Cardiac Monitoring: An order was placed for continuous cardiac monitoring. The monitor shows a rate of 80 with a.flutter rhythm. -Laboratory studies: As stated above and show below. -Imaging studies: cxr: +cm, no effusions, no focal consolidation Triage Nursing Note Reviewed Prior/Outside Records Reviewed Past Med/Surg History Problem List Generalized weakness (Acute) Pericardial effusion Low back pain (Acute) Diarrhea Elevated troponin (Acute) C. difficile diarrhea (Acute) Adult failure to thrive (Acute) Generalized weakness (Acute) S/P mitral valve clip implantation Presence of Watchman left atrial appendage closure device CAD (coronary artery disease) Cardiac pacemaker in situ (Acute) CKD (chronic kidney disease) (Acute) Anemia (Acute) TIA (transient ischemic attack) (Acute) Depression Hypothyroidism RADHA (obstructive sleep apnea) SSS (sick sinus syndrome) Chronic diastolic (congestive) heart failure CKD (chronic kidney disease), stage III TIA (transient ischemic attack) Anemia (Acute) Leukocytosis (Acute) Chronic anticoagulation (Acute) Acute renal insufficiency Severe mitral insufficiency Acute on chronic diastolic heart failure Paroxysmal atrial fibrillation Stroke-like symptoms (Acute) Acute on chronic anemia COVID-19 (Acute) COVID-19 (Acute) History of tobacco abuse Asthma, moderate persistent (Chronic) Meniere disease (Chronic) Atrial fibrillation and flutter (Chronic) History of laminectomy (Chronic) H/O sinus surgery (Chronic) Hx of neck surgery (Chronic) History of repair of left rotator cuff (Chronic) Medical History Angio-edema Nausea Leukocytosis Near syncope Hypotension Dehydration TIFFANY (acute kidney injury) Near syncope Elevated brain natriuretic peptide (BNP) level Pneumonia Atrial flutter Carotid artery aneurysm Prolonged QT interval Atrial fibrillation with RVR DM type 2 (diabetes mellitus, type 2) Encounter for pre-operative examination Cholelithiasis Cholecystitis Chest pain at rest Pulmonary emphysema Osteoarthritis of right knee HTN (hypertension) Surgical History History of hysterectomy History of cholecystectomy Family History Father Diabetes Social History Smoking Status: Never smoker Tobacco Type: Cigarettes packs per day: 1.5; Cigarettes Per Day: 30; Second Hand Exposure: No; Do You Dip or Chew Tobacco: No; Hx Alcohol Use: No Hx Substance Use: No Preferred Language: [place] Communication Ability: Effective Business Process Manager Required: No Beliefs That Will Affect Care: None marital status: Current Living Situation: Spouse Other Information That Helps Us Care for You: No Feels Safe at Home: Yes Safety Concerns: Feels Safe At This Time Assistive Devices: Glasses, Oxygen - at Night and Walker Allergies Allergies Allergy/AdvReac Type Severity Reaction Status Date / Time Sulfa (Sulfonamide Allergy Severe Severe Verified 03/07/24 11:30 Antibiotics) rxn: rash and hives celecoxib Allergy Intermediate Rash/Hives/ Verified 03/07/24 11:30 Itching. cephalexin Allergy Intermediate Rash/Hives/ Verified 03/07/24 11:30 Itching. furosemide Allergy Intermediate Rash/Hives/ Verified 03/07/24 11:30 Itching. gabapentin Allergy Intermediate Rash/Hives/ Verified 03/07/24 11:30 Itching. pregabalin Allergy Intermediate Rash/Hives/ Verified 03/07/24 11:30 Itching. meclizine Allergy Unknown Unknown Verified 03/07/24 11:30 methylprednisolone Allergy Unknown Rash/Hives/ Verified 03/07/24 11:30 Itching. Penicillins Allergy Unknown Unknown. Verified 03/07/24 11:30 prednisone Allergy Unknown Rash/Hives/ Verified 03/07/24 11:30 Itching. vancomycin Allergy Unknown Jodi Verified 03/07/24 11:30 syn. . nickel Allergy Unknown Verified 03/07/24 11:30 dexamethasone AdvReac Intermediate Steroid Verified 03/07/24 11:30 psychosis. Home Meds Home Medications Medication Instructions Recorded Confirmed montelukast 10 mg tablet 10 mg PO PM 04/08/19 03/21/24 atorvastatin 20 mg tablet 20 mg PO QAM 11/26/21 03/21/24 cholecalciferol (vitamin D3) 50 100 mcg PO QAM 11/26/21 03/21/24 mcg (2,000 unit) capsule (Vitamin D3) levalbuterol tartrate 45 1 puff inhalation Q4H PRN 08/07/22 03/21/24 mcg/actuation aerosol inhaler Shortness Of Breath (Xopenex HFA) sertraline 100 mg tablet 150 mg PO QAM 08/07/22 03/21/24 cyanocobalamin (vitamin B-12) 100 100 mcg PO QAM 11/07/22 03/21/24 mcg tablet (Vitamin B-12) folic acid 1 mg tablet 1 mg PO QAM 11/07/22 03/21/24 tiotropium 2.5 mcg-olodaterol 2.5 2 puff inhalation QAM 11/07/22 03/21/24 mcg/actuation mist for inhalation (Stiolto Respimat) torsemide 10 mg tablet 20 mg PO QAM 11/07/22 03/21/24 ipratropium bromide 21 mcg (0.03 2 spray intranasal DAILY PRN 12/06/22 03/21/24 %) nasal spray rhinorrhea allopurinol 300 mg tablet 300 mg PO HS 08/14/23 03/21/24 apixaban 2.5 mg tablet (Eliquis) 2.5 mg PO AMHS 10/09/23 03/21/24 colestipol 1 gram tablet 1 g PO BID 03/07/24 03/21/24 diphenoxylate-atropine 2.5 1 tab PO BID PRN Diarrhea 03/07/24 03/21/24 mg-0.025 mg tablet oxycodone 5 mg tablet 2.5 mg PO UD PRN pain 03/07/24 03/21/24 levothyroxine 175 mcg tablet 175 mcg PO DAILY 03/21/24 03/21/24 Previous Rx's Medication Instructions Recorded pantoprazole 40 mg tablet,delayed 40 mg PO BID #60 tabs 12/09/22 release cetirizine 10 mg tablet 10 mg PO QAM #30 tabs 10/22/23 metoprolol succinate 25 mg 25 mg PO BID #60 tabs 10/22/23 tablet,extended release 24 hr lidocaine 5 % topical patch 1 patch topical DAILY PRN pain #15 03/07/24 (Lidoderm) ea Results & Data (ED) Vital Signs Vital Signs - 24 hr 03/21/24 04:00 03/21/24 05:00 03/21/24 05:00 Pulse Rate 76 84 Pulse Rate [Finger] 79 Pulse Rhythm [Finger] Regular Pulse Strength [Finger] Normal Respiratory Rate 18 20 18 Respiratory Effort / Characteristics Non-Labored Spontaneous Respiratory Depth Normal Respiratory Pattern Regular Blood Pressure 104/64 105/56 L Blood Pressure [Right Arm] 105/56 L Blood Pressure Mean 88 83 Blood Pressure Mean [Right Arm] 72 Pulse Oximetry 94 94 94 Oxygen Delivery Method Nasal Cannula Oxygen Flow Rate 2 03/21/24 05:09 Pulse Rate 84 Pulse Rate [Finger] Pulse Rhythm [Finger] Pulse Strength [Finger] Respiratory Rate Respiratory Effort / Characteristics Respiratory Depth Respiratory Pattern Blood Pressure Blood Pressure [Right Arm] Blood Pressure Mean Blood Pressure Mean [Right Arm] Pulse Oximetry Oxygen Delivery Method Oxygen Flow Rate Laboratory Data 03/21/24 01:40 03/21/24 01:40 Lab Results 03/21/24 Range/Units 01:40 WBC 10.43 (4.8-10.8) K/ul RBC 3.44 L (4.20-5.40) M/uL Hgb 10.4 L (12.0-16.0) g/dl Hct 32.2 L (37.0-47.0) % MCV 93.6 (80.0-100.0) fL MCH 30.2 (25.0-34.0) pg MCHC 32.3 (32.0-36.0) g/dL RDW Std Deviation 56.4 H (36.4-46.3) fL RDW Coeff of Francisco Javier 16.4 H (11.5-14.5) % Plt Count 208 (130-400) K/uL MPV 11.0 (9.4-12.4) fL Immature Gran % (Auto) 0.5 % Neut % (Auto) 75.0 % Lymph % (Auto) 11.5 % [place] % (Auto) 8.9 % Eos % (Auto) 3.5 % Baso % (Auto) 0.6 % Neut # (Auto) 7.82 H (1.40-6.50) K/uL Lymph # (Auto) 1.20 (1.20-3.40) K/uL [place] # (Auto) 0.93 H (0.11-0.59) K/uL Eos # (Auto) 0.37 (0.00-0.50) K/uL Baso # (Auto) 0.06 (0.00-0.20) K/uL Immature Gran # (Auto) 0.05 (0.01-0.20) K/uL Absolute Nucleated RBC 0.02 (0.00-0.12) K/uL Nucleated RBC % (auto) 0.2 % PT 12.0 (9.0-12.0) Seconds INR 1.1 (0.9-1.1) Sodium 135 L (136-145) mmol/L Potassium 3.6 (3.5-5.1) mmol/L Chloride 101 (98-107) mmol/L Carbon Dioxide 25 (21-32) mmol/L Anion Gap 9 (3-11) BUN 47 H (6-23) mg/dl Creatinine 1.77 H (0.6-1.2) mg/dl Est Cr Clr Drug Dosing Not Reportable Est GFR ( Amer) 30.3 ml/min Est GFR (Non-Af Amer) 26.1 ml/min BUN/Creatinine Ratio 26.6 H (10-20) Glucose 135 H (70-99(Fasting)) mg/dl Calcium 9.6 (8.6-10.3) mg/dl Magnesium 1.9 (1.7-2.4) mg/dl Total Bilirubin 0.4 (0.2-1.0) mg/dl AST 34 (13-39) U/L ALT 16 (7-52) U/L Alkaline Phosphatase 194 H (34-104) U/L Total Protein 6.8 (6.0-8.3) gm/dl Albumin 3.8 (3.4-5.0) gm/dl Globulin 3.0 (2.5-4.0) gm/dl Albumin/Globulin Ratio 1.3 (0.9-2) Lipase 32 (11-82) U/L Administered Medications Allopurinol (Allopurinol 300 Mg Tab) 300 mg PO [facility] Stop: 04/20/24 20:59 Last Admin: 03/21/24 20:23 Dose: 300 mg Documented By: ANGIE Atorvastatin Calcium (Atorvastatin 20 Mg Tab) 20 mg PO [facility] Stop: 04/20/24 08:59 Last Admin: 03/21/24 09:36 Dose: 20 mg Documented By: Cetirizine HCl (Cetirizine Hcl 10 Mg Tablet) 10 mg PO [facility] Stop: 04/20/24 08:59 Last Admin: 03/21/24 09:39 Dose: 10 mg Documented By: Colestipol HCl (Colestipol Hcl 1 Gm Tab) 1 gm PO BID@1200,2100 [facility] Stop: 04/20/24 11:59 Last Admin: 03/21/24 20:24 Dose: 1 gm Documented By: Admin: 03/21/24 11:56 Dose: 1 gm Documented By: Cyanocobalamin (Cyanocobalamin (B-12) 100 Mcg Tablet) 100 mcg PO [facility] Stop: 04/20/24 08:59 Last Admin: 03/21/24 09:37 Dose: 100 mcg Documented By: Fidaxomicin (Fidaxomicin 200 Mg Tab) 200 mg PO BID [facility] Stop: 03/31/24 20:59 Last Admin: 03/21/24 20:22 Dose: 200 mg Documented By: ANGIE Folic Acid (Folic Acid 1 Mg Tab) [facility] [place] Stop: 04/20/24 08:59 Last Admin: 03/21/24 09:38 Dose: 1 mg Documented By: Insulin Aspart (Insulin Aspart Per Unit Charge) 0 units SC ACHS [facility] Stop: 04/20/24 08:41 Last Admin: 03/21/24 20:41 Dose: Not Given Documented By: Admin: 03/21/24 17:54 Dose: 3 units Documented By: Co-signed By: LION Admin: 03/21/24 12:26 Dose: Not Given Documented By: Admin: 03/21/24 09:53 Dose: Not Given Documented By: Metoprolol Succinate (Metoprolol Succ 25mg Ext Rel Tab) 25 mg PO BID [facility] Stop: 04/20/24 20:59 Last Admin: 03/21/24 20:24 Dose: 25 mg Documented By: ANGIE Miscellaneous (Remove Lidoderm Patch) 1 each N/A DAILY@2100 [facility] Stop: 04/20/24 17:59 Last Admin: 03/21/24 17:55 Dose: 1 each Documented By: Montelukast Sodium (Montelukast Sodium 10 Mg Tablet) 10 mg PO PM [facility] Stop: 04/20/24 20:59 Last Admin: 03/21/24 20:24 Dose: 10 mg Documented By: ANGIE Oxycodone HCl (Oxycodone Hcl Ir 5 Mg Tab (Immediate Release)) 5 - 10 mg PO QID PRN PRN Reason: Pain Stop: 04/04/24 05:31 Last Admin: 03/21/24 20:20 Dose: 10 mg Documented By: ANGIE Pantoprazole Sodium (Pantoprazole 40 Mg Tab) 40 mg PO BID [facility] Stop: 04/20/24 08:59 Last Admin: 03/22/24 00:28 Dose: 40 mg Documented By: Admin: 03/21/24 09:39 Dose: 40 mg Documented By: Sertraline HCl (Sertraline Hcl 50 Mg Tablet) 150 mg PO [facility] Stop: 04/20/24 08:59 Last Admin: 03/21/24 09:36 Dose: 150 mg Documented By: Umeclidinium/Vilanterol (Umeclidinium/Vilanterol 62.5/25mcg 7 Puffs/Inhaler) 1 puffs INH QAM JULIO CESAR Stop: 04/20/24 08:59 Last Admin: 03/21/24 09:53 Dose: 1 puffs Documented By: Discontinued Medications Sodium Chloride (Nss) 500 mls @ 80 mls/hr IV .Q6H15M JULIO CESAR Stop: 04/20/24 01:14 Last Infusion: 03/21/24 08:56 Dose: Infused Documented By: Admin: 03/21/24 02:54 Dose: 80 mls/hr Documented By: MADDIE Sodium Chloride (Nss) 500 mls @ 80 mls/hr IV .Q6H15M STA Stop: 03/21/24 12:46 Last Infusion: 03/21/24 09:57 Dose: Infused Documented By: Admin: 03/21/24 08:56 Dose: 80 mls/hr Documented By: Ioversol (Optiray 320 100ml) 94 ml IV ONCE ONE Stop: 03/21/24 02:51 Last Admin: 03/21/24 02:47 Dose: 94 ml Documented By: JOSE CARLOS Lidocaine (Lidocaine 5% 1 Patch) 1 patch TD ONE STA Stop: 03/21/24 05:35 Last Admin: 03/21/24 05:42 Dose: 1 patch Documented By: MADDIE Morphine Sulfate (Morphine Sulfate 4 Mg/Ml 1 Ml Carp\Vial) 4 mg IV NOW STA Stop: 03/21/24 01:14 Last Admin: 03/21/24 01:46 Dose: 4 mg Documented By: MADDIE Imaging Data Radiologist's Impression: Abdomen/Pelvis CT 03/21/24 01:13 Exam(s): CT ABDOMEN + PELVIS With Contrast IV Amt: 94 ml EXAM: CT Abdomen and Pelvis With Intravenous Contrast CLINICAL HISTORY: Reason for exam: left flank/low back pain. TECHNIQUE: Axial computed tomography images of the abdomen and pelvis with intravenous contrast. CTDI is 19.42 mGy and DLP is 928.27 mGy-cm. Automated exposure control was utilized for the study. A dose lowering technique was utilized adhering to the principles of ALARA. CONTRAST: Patient received 94 ml of IV contrast COMPARISON: 02/03/2017 FINDINGS: Lung bases: Left basilar atelectasis. Heart: Small pericardial effusion. Cardiomegaly. ABDOMEN: Liver: Unremarkable. No mass. Gallbladder and bile ducts: Postoperative changes prior cholecystectomy. No ductal dilation. Pancreas: Unremarkable. No mass. No ductal dilation. Spleen: Unremarkable. No splenomegaly. Adrenals: Unremarkable. No mass. Kidneys and ureters: Bilateral renal parenchymal thinning. Multiple bilateral renal hypodensities likely representing cysts measuring up to 2. 7 cm on the right and 2.1 cm on the left. No hydronephrosis. Stomach and bowel: Unremarkable. No obstruction. No mucosal thickening. PELVIS: Appendix: No findings to suggest acute appendicitis. Bladder: Unremarkable. No mass. Reproductive: Uterus is surgically absent. ABDOMEN and PELVIS: Intraperitoneal space: Unremarkable. No free air. No significant fluid collection. Bones/joints: Postoperative changes L2-L3 posterior laminectomies. Stable since prior exam. No acute fracture. No dislocation. Soft tissues: Unremarkable. Vasculature: Unremarkable. No abdominal aortic aneurysm. Lymph nodes: Unremarkable. No enlarged lymph nodes. IMPRESSION: Small pericardial effusion. Cardiomegaly Other chronic changes as described above Electronically signed by: Lavon Holden MD 03/21/24 04:[address] 03/21/24 01:13 CR Exam(s): CT L SPINE With Contrast IV Amt: 94 ml EXAM: CT Lumbar Spine With Intravenous Contrast CLINICAL HISTORY: Reason for exam: left low back pain/hx T12 comp fx. TECHNIQUE: Axial computed tomography images of the lumbar spine with intravenous contrast. CTDI is 19.42 mGy and DLP is 928.27 mGy-cm. Automated exposure control was utilized for the study. A dose lowering technique was utilized adhering to the principles of ALARA. CONTRAST: Patient received 94 ml of IV contrast COMPARISON: Prior CT scan of the pelvis from February 03, 2017. FINDINGS: Vertebrae: There is an acute single column inferior endplate fracture of the T12 vertebral body with 29% loss of vertebral body height. Patient is status post posterior decompression of L2 and L3 with expected postsurgical changes. Positive [place] sign at L4-5 and L5-S1. Diffuse osteopenia throughout the visualized bones. Discs/spinal canal/neural foramina: No acute findings. Severe spinal canal stenosis at L4-5. Soft tissues: Advanced atrophy of the psoas, paraspinous and intraspinous musculature. IMPRESSION: There is an acute single column inferior endplate fracture of the T12 vertebral body with 29% loss of vertebral body height. This fracture is amenable to vertebroplasty or kyphoplasty. Communications: Verify Receipt Electronically signed by: Vanessa Max MD 03/21/24 03:56 AM Discharge Plan Visit Data Chief Complaint: Flank Pain Stated Complaint: POSS KIDNEY STONE, T12 FX ED Provider: Lissette Benavidez Discharge Problem: Low back pain, Generalized weakness Patient Disposition: Admitted As Inpatient Discharge Instructions Interventions: ED Discharge Assessment Last Done: 03/21/24 08:05
[2024-03-21] MEDS: MoRPHine SULFATE 4 MG/ML 1 ML CARP\\VIAL IV STA (01:46)
[2024-03-21 02:05] LABS: Basophils # (auto) 0.06 K/uL (0.00-0.20); Basophils % (auto) 0.6 %; Eosinophils # (auto) 0.37 K/uL (0.00-0.50); Eosinophils % (auto) 3.5 %; Hematocrit (blood only) 32.2 % (37.0-47.0); Hemoglobin 10.4 g/dl (12.0-16.0); Immature Granulocytes # (auto) 0.05 K/uL (0.01-0.20); Immature Granulocytes % (auto) 0.5 %; Lymphocytes % (auto) 11.5 %; Mean Corpuscular Hemoglobin 30.2 pg (25.0-34.0); Mean Corpuscular Hgb Conc 32.3 g/dL (32.0-36.0); Mean Corpuscular Volume 93.6 fL (80.0-100.0); Monocytes # (auto) 0.93 K/uL (0.11-0.59); Monocytes % (auto) 8.9 %; Neutrophils # (auto) 7.82 K/uL (1.40-6.50); Nucleated RBC # (auto) 0.02 K/uL (0.00-0.12); Nucleated RBC % (auto) 0.2 %; Platelet Count 208 K/uL (130-400); RDW Coefficient of Variation 16.4 % (11.5-14.5); RDW Standard Deviation 56.4 fL (36.4-46.3); Red Blood Count 3.44 M/uL (4.20-5.40); White Blood Count 10.43 K/ul (4.8-10.8)
[2024-03-21 02:17] LABS: Alanine Aminotransferase 16 U/L (7-52); Albumin Globulin Ratio 1.3 (0.9-2); Albumin Level 3.8 gm/dl (3.4-5.0); Alkaline Phosphatase 194 U/L (34-104); Anion Gap 9 (3-11); Aspartate Aminotransferase 34 U/L (13-39); BUN Creatinine Ratio 26.6 (10-20); Bilirubin,Total 0.4 mg/dl (0.2-1.0); Blood Urea Nitrogen 47 mg/dl (6-23); Calcium 9.6 mg/dl (8.6-10.3); Carbon Dioxide 25 mmol/L (21-32); Chloride 101 mmol/L (98-107); Est GFR (African American) 30.3 ml/min; Est GFR (Non-African American) 26.1 ml/min; Glucose 135 mg/dl (70-99(Fasting)); Lipase 32 U/L (11-82); Magnesium 1.9 mg/dl (1.7-2.4); Potassium 3.6 mmol/L (3.5-5.1); Sodium 135 mmol/L (136-145); Total Protein 6.8 gm/dl (6.0-8.3)
[2024-03-21 02:31] LABS: INR 1.1 (0.9-1.1)
[2024-03-21] MEDS: OPTIRAY 320 100ml IV ONE (02:47)
[2024-03-21] MEDS: SODIUM CHLORIDE 0.9% 500 ML IV SCH (02:54)
--- NOTE | 2024-03-21 03:58 | CT Scan Report ---
Exam(s): CT L SPINE With Contrast IV Amt: 94 ml EXAM: CT Lumbar Spine With Intravenous Contrast CLINICAL HISTORY: Reason for exam: left low back pain/hx T12 comp fx. TECHNIQUE: Axial computed tomography images of the lumbar spine with intravenous contrast. CTDI is 19.42 mGy and DLP is 928.27 mGy-cm. Automated exposure control was utilized for the study. A dose lowering technique was utilized adhering to the principles of ALARA. CONTRAST: Patient received 94 ml of IV contrast COMPARISON: Prior CT scan of the pelvis from February 03, 2017. FINDINGS: Vertebrae: There is an acute single column inferior endplate fracture of the T12 vertebral body with 29% loss of vertebral body height. Patient is status post posterior decompression of L2 and L3 with expected postsurgical changes. Positive [place] sign at L4-5 and L5-S1. Diffuse osteopenia throughout the visualized bones. Discs/spinal canal/neural foramina: No acute findings. Severe spinal canal stenosis at L4-5. Soft tissues: Advanced atrophy of the psoas, paraspinous and intraspinous musculature. IMPRESSION: There is an acute single column inferior endplate fracture of the T12 vertebral body with 29% loss of vertebral body height. This fracture is amenable to vertebroplasty or kyphoplasty. Communications: Verify Receipt Electronically signed by: Vanessa Max MD 03/21/24 03:56 AM
--- NOTE | 2024-03-21 04:27 | CT Scan Report ---
Exam(s): CT ABDOMEN + PELVIS With Contrast IV Amt: 94 ml EXAM: CT Abdomen and Pelvis With Intravenous Contrast CLINICAL HISTORY: Reason for exam: left flank/low back pain. TECHNIQUE: Axial computed tomography images of the abdomen and pelvis with intravenous contrast. CTDI is 19.42 mGy and DLP is 928.27 mGy-cm. Automated exposure control was utilized for the study. A dose lowering technique was utilized adhering to the principles of ALARA. CONTRAST: Patient received 94 ml of IV contrast COMPARISON: 02/03/2017 FINDINGS: Lung bases: Left basilar atelectasis. Heart: Small pericardial effusion. Cardiomegaly. ABDOMEN: Liver: Unremarkable. No mass. Gallbladder and bile ducts: Postoperative changes prior cholecystectomy. No ductal dilation. Pancreas: Unremarkable. No mass. No ductal dilation. Spleen: Unremarkable. No splenomegaly. Adrenals: Unremarkable. No mass. Kidneys and ureters: Bilateral renal parenchymal thinning. Multiple bilateral renal hypodensities likely representing cysts measuring up to 2. 7 cm on the right and 2.1 cm on the left. No hydronephrosis. Stomach and bowel: Unremarkable. No obstruction. No mucosal thickening. PELVIS: Appendix: No findings to suggest acute appendicitis. Bladder: Unremarkable. No mass. Reproductive: Uterus is surgically absent. ABDOMEN and PELVIS: Intraperitoneal space: Unremarkable. No free air. No significant fluid collection. Bones/joints: Postoperative changes L2-L3 posterior laminectomies. Stable since prior exam. No acute fracture. No dislocation. Soft tissues: Unremarkable. Vasculature: Unremarkable. No abdominal aortic aneurysm. Lymph nodes: Unremarkable. No enlarged lymph nodes. IMPRESSION: Small pericardial effusion. Cardiomegaly Other chronic changes as described above Electronically signed by: Lavon Holden MD 03/21/24 04:26 AM
[2024-03-21] MEDS ORDERED: ACETAMINOPHEN 325 MG TAB PO PRN (05:32)
[2024-03-21] MEDS: LIDOCAINE 5% 1 PATCH TD STA (05:42)
--- NOTE | 2024-03-21 06:21 | History & Physical Report ---
Date of Service March 21, 2024 Assessment & Plan (1) Pericardial effusion: Plan: Incidental finding of pericardial effusion on abdominal imaging. chronic diastolic heart failure (EF 60 to 65%, TTE 2022), some congestion on imaging although patient without symptoms ARF on CKD uncontrolled back pain secondary to recent T12 compression fracture currently on fentanyl patch Worsening diarrhea, rule out infectious causes CAD/PVD as per records SSS status post PPM, patient currently in atrial flutter A-fib on Eliquis/history of Watchman device, Eliquis to be discontinued in March 25 as per patient [facility] [employer] hx MR status post mitral valve clip valvular heart disease (moderate MS, mild TR) hypertension, BP on the lower side hyperlipidemia, on statin Rx COPD, RADHA/nocturnal hypoxemia as per records, pulmonary hypertension, patient currently without pulmonary symptoms DM 2 on oral medications, well-controlled as of recent hemoglobin A1c of 6.01 December 2023 hypothyroidism, recent outpatient TSH markedly elevated at 24, outpatient levothyroxine dose has been adjusted by PCP Chronic anemia, hemoglobin at baseline endometrial cancer status post surgery past tobacco abuse PCU TTE Re: Pericardial effusion on CT imaging Cardiology consult contingent on TTE results Baseline UA, recheck renal function after IVF administered at the ER, hold home diuretic for now Orthopedic spine consult Re: Thoracic compression fracture May benefit from pain management input. Hold Eliquis until TTE resulted and patient seen by specialist. Stool CS, stool C. difficile ISS BG goal 1 10-1 40, carb count coverage PT OT eval DVT prophylaxis. SCDs while Eliquis on hold DNR Patient son requesting updates providers. Franck Bright Barakat, contact #[phone]. Text document was generated using [employer] voice recognition software. It may contain grammatical or spelling errors. Kindly contact undersigned for clarification of any documentation item in question. History of Present Illness Chief Complaint: Uncontrolled back pain Primary Care Provider: Florentin Calvo DO History obtained from patient, family, and records. Medical history significant for chronic diastolic heart failure (EF 60 to 65%, TTE 2022), CAD/PVD as per records, SSS status post PPM, A-fib on Eliquis, history of Watchman device, MR status post mitral valve clip, valvular heart disease (moderate MS, mild TR), hypertension, hyperlipidemia, COPD, RADHA/nocturnal hypoxemia as per records, pulmonary hypertension, DM 2 on oral medications, hypothyroidism, CRI (baseline creatinine 1.5 as per records), chronic anemia (baseline hemoglobin 10-11), GERD, endometrial cancer status post surgery, mood disorder, back pain secondary to recent T12 compression fracture currently on fentanyl patch, chronic diarrhea, colonic angiodysplasia as per records, past tobacco abuse. Last confinement September 2023 for generalized weakness and sigmoid diverticulitis. Patient seen at the ER 2 weeks ago for back pain secondary to fall a week prior. T12 compression fracture on imaging. Patient refused admission recommendation. Back pain not controlled by home oxycodone. Transient constipation symptoms from possible blockage on outpatient imaging as per daughter now back to worsening diarrhea. Patient eventually started on fentanyl patch last week on follow-up visit at PCPs office. Uncontrolled back pain at home. Patient denies headache, chest pain, SOB. Worsening watery diarrhea symptoms. 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 cephalexin Allergy Intermediate Rash/Hives/ Verified 03/07/24 11:30 Itching. furosemide Allergy Intermediate Rash/Hives/ Verified 03/07/24 11:30 Itching. gabapentin Allergy Intermediate Rash/Hives/ Verified 03/07/24 11:30 Itching. pregabalin Allergy Intermediate Rash/Hives/ Verified 03/07/24 11:30 Itching. meclizine Allergy Unknown Unknown Verified 03/07/24 11:30 methylprednisolone Allergy Unknown Rash/Hives/ Verified 03/07/24 11:30 Itching. Penicillins Allergy Unknown Unknown. Verified 03/07/24 11:30 prednisone Allergy Unknown Rash/Hives/ Verified 03/07/24 11:30 Itching. vancomycin Allergy Unknown Jodi Verified 03/07/24 11:30 syn. . nickel Allergy Unknown Verified 03/07/24 11:30 dexamethasone AdvReac Intermediate Steroid Verified 03/07/24 11:30 psychosis. Home Medications Medication Instructions Recorded Confirmed Type montelukast 10 mg tablet 10 mg PO PM 04/08/19 03/21/24 History atorvastatin 20 mg tablet 20 mg PO QAM 11/26/21 03/21/24 History cholecalciferol (vitamin D3) 50 100 mcg PO QAM 11/26/21 03/21/24 History mcg (2,000 unit) capsule (Vitamin D3) levalbuterol tartrate 45 1 puff inhalation Q4H PRN 08/07/22 03/21/24 History mcg/actuation aerosol inhaler Shortness Of Breath (Xopenex HFA) sertraline 100 mg tablet 150 mg PO QAM 08/07/22 03/21/24 History cyanocobalamin (vitamin B-12) 100 100 mcg PO QAM 11/07/22 03/21/24 History mcg tablet (Vitamin B-12) folic acid 1 mg tablet 1 mg PO QAM 11/07/22 03/21/24 History tiotropium 2.5 mcg-olodaterol 2.5 2 puff inhalation QAM 11/07/22 03/21/24 History mcg/actuation mist for inhalation (Stiolto Respimat) torsemide 10 mg tablet 20 mg PO QAM 11/07/22 03/21/24 History ipratropium bromide 21 mcg (0.03 2 spray intranasal DAILY PRN 12/06/22 03/21/24 History %) nasal spray rhinorrhea pantoprazole 40 mg tablet,delayed 40 mg PO BID #60 tabs 12/09/22 03/21/24 Rx release allopurinol 300 mg tablet 300 mg PO HS 08/14/23 03/21/24 History apixaban 2.5 mg tablet (Eliquis) 2.5 mg PO AMHS 10/09/23 03/21/24 History cetirizine 10 mg tablet 10 mg PO QAM #30 tabs 10/22/23 03/21/24 Rx metoprolol succinate 25 mg 25 mg PO BID #60 tabs 10/22/23 03/07/24 Rx tablet,extended release 24 hr colestipol 1 gram tablet 1 g PO BID 03/07/24 03/21/24 History diphenoxylate-atropine 2.5 1 tab PO BID PRN Diarrhea 03/07/24 03/21/24 History mg-0.025 mg tablet lidocaine 5 % topical patch 1 patch topical DAILY PRN pain #15 03/07/24 03/21/24 Rx (Lidoderm) ea oxycodone 5 mg tablet 2.5 mg PO UD PRN pain 03/07/24 03/21/24 History levothyroxine 175 mcg tablet 175 mcg PO DAILY 03/21/24 03/21/24 History Past Med/Surg History Problem List Pericardial effusion Low back pain (Acute) Fall (Acute) Acute dehydration (Acute) Closed T12 fracture (Acute) Diarrhea (Acute) Diarrhea Elevated troponin (Acute) C. difficile diarrhea (Acute) Adult failure to thrive (Acute) Generalized weakness (Acute) S/P mitral valve clip implantation Presence of Watchman left atrial appendage closure device CAD (coronary artery disease) Cardiac pacemaker in situ (Acute) CKD (chronic kidney disease) (Acute) Anemia (Acute) TIA (transient ischemic attack) (Acute) Depression Hypothyroidism RADHA (obstructive sleep apnea) SSS (sick sinus syndrome) Chronic diastolic (congestive) heart failure CKD (chronic kidney disease), stage III TIA (transient ischemic attack) Anemia (Acute) Leukocytosis (Acute) Chronic anticoagulation (Acute) Acute renal insufficiency Severe mitral insufficiency Acute on chronic diastolic heart failure Paroxysmal atrial fibrillation Stroke-like symptoms (Acute) Acute on chronic anemia COVID-19 (Acute) COVID-19 (Acute) History of tobacco abuse Asthma, moderate persistent (Chronic) Meniere disease (Chronic) Atrial fibrillation and flutter (Chronic) History of laminectomy (Chronic) H/O sinus surgery (Chronic) Hx of neck surgery (Chronic) History of repair of left rotator cuff (Chronic) Medical History Angio-edema Nausea Leukocytosis Near syncope Hypotension Dehydration TIFFANY (acute kidney injury) Near syncope Elevated brain natriuretic peptide (BNP) level Pneumonia Atrial flutter Carotid artery aneurysm Prolonged QT interval Atrial fibrillation with RVR DM type 2 (diabetes mellitus, type 2) Encounter for pre-operative examination Cholelithiasis Cholecystitis Chest pain at rest Pulmonary emphysema Osteoarthritis of right knee HTN (hypertension) Surgical History History of hysterectomy History of cholecystectomy Family History Father Diabetes Social History Smoking Status: Never smoker Tobacco Type: Cigarettes packs per day: 1.5; Cigarettes Per Day: 30; Second Hand Exposure: No; Do You Dip or Chew Tobacco: No; Hx Alcohol Use: No Hx Substance Use: No Preferred Language: Urdu Communication Ability: Effective Ticket Printer Required: No Beliefs That Will Affect Care: None marital status: Current Living Situation: Spouse Other Information That Helps Us Care for You: No Feels Safe at Home: Yes Safety Concerns: Feels Safe At This Time Assistive Devices: Glasses, Oxygen - at Night and Walker Review of Systems Review of Systems: As per HPI, all other systems reviewed and negative Physical Exam Physical Exam: GENERAL: Slightly uncomfortable, slightly hard of hearing, no respiratory distress SKIN: Pallor , warm HEENT: Pale palpebral conjunctivae, no ptosis, dry buccal mucosa NECK : Supple, no tenderness CHEST : Decreased breath sounds, no tenderness HEART : RRR, no murmur ABDOMEN: Some distention, nontender BACK : Mid back tenderness, negative straight leg raise test EXTREMITIES : Bilateral LE swelling without tenderness, no other conspicuous deformities noted NEUROLOGIC : Coherent, no facial asymmetry, slightly hard of hearing, gait and stance not assessed Results & Data Results & Data Vital Signs (Past 12 Hours) Vital Signs Temp Pulse Pulse Resp BP BP Pulse Ox 03/21/24 05:09 84 03/21/24 05:00 79 20 105/56 L 94 03/21/24 03:00 81 18 106/67 95 03/21/24 02:00 80 18 103/58 L 92 03/21/24 01:46 123/64 03/21/24 01:40 78 20 103/58 L 98 03/21/24 00:47 36.5 C 85 18 120/74 95 O2 Del Method O2 Flow Rate 03/21/24 05:09 03/21/24 05:00 Nasal Cannula 2 03/21/24 03:00 Room Air 03/21/24 02:00 Room Air 03/21/24 01:46 03/21/24 01:40 03/21/24 00:47 Room Air Laboratory Results Laboratory Results WBC 10.43 K/ul (4.8-10.8) 03/21/24 01:40 RBC 3.44 M/uL (4.20-5.40) L 03/21/24 01:40 Hgb 10.4 g/dl (12.0-16.0) L 03/21/24 01:40 Hct 32.2 % (37.0-47.0) L 03/21/24 01:40 MCV 93.6 fL (80.0-100.0) 03/21/24 01:40 MCH 30.2 pg (25.0-34.0) 03/21/24 01:40 MCHC 32.3 g/dL (32.0-36.0) 03/21/24 01:40 RDW Std Deviation 56.4 fL (36.4-46.3) H 03/21/24 01:40 RDW Coeff of Francisco Javier 16.4 % (11.5-14.5) H 03/21/24 01:40 Plt Count 208 K/uL (130-400) 03/21/24 01:40 MPV 11.0 fL (9.4-12.4) 03/21/24 01:40 Immature Gran % (Auto) 0.5 % 03/21/24 01:40 Neut % (Auto) 75.0 % 03/21/24 01:40 Lymph % (Auto) 11.5 % 03/21/24 01:40 Bee % (Auto) 8.9 % 03/21/24 01:40 Eos % (Auto) 3.5 % 03/21/24 01:40 Baso % (Auto) 0.6 % 03/21/24 01:40 Neut # (Auto) 7.82 K/uL (1.40-6.50) H 03/21/24 01:40 Lymph # (Auto) 1.20 K/uL (1.20-3.40) 03/21/24 01:40 Bee # (Auto) 0.93 K/uL (0.11-0.59) H 03/21/24 01:40 Eos # (Auto) 0.37 K/uL (0.00-0.50) 03/21/24 01:40 Baso # (Auto) 0.06 K/uL (0.00-0.20) 03/21/24 01:40 Immature Gran # (Auto) 0.05 K/uL (0.01-0.20) 03/21/24 01:40 Absolute Nucleated RBC 0.02 K/uL (0.00-0.12) 03/21/24 01:40 Nucleated RBC % (auto) 0.2 % 03/21/24 01:40 PT 12.0 Seconds (9.0-12.0) 03/21/24 01:40 INR 1.1 (0.9-1.1) 03/21/24 01:40 Sodium 135 mmol/L (136-145) L 03/21/24 01:40 Potassium 3.6 mmol/L (3.5-5.1) 03/21/24 01:40 Chloride 101 mmol/L (98-107) 03/21/24 01:40 Carbon Dioxide 25 mmol/L (21-32) 03/21/24 01:40 Anion Gap 9 (3-11) 03/21/24 01:40 BUN 47 mg/dl (6-23) H 03/21/24 01:40 Creatinine 1.77 mg/dl (0.6-1.2) H 03/21/24 01:40 Est Cr Clr Drug Dosing Not Reportable 03/21/24 01:40 Est GFR ( Amer) 30.3 ml/min 03/21/24 01:40 Est GFR (Non-Af Amer) 26.1 ml/min 03/21/24 01:40 BUN/Creatinine Ratio 26.6 (10-20) H 03/21/24 01:40 Glucose 135 mg/dl (70-99(Fasting)) H 03/21/24 01:40 Calcium 9.6 mg/dl (8.6-10.3) 03/21/24 01:40 Magnesium 1.9 mg/dl (1.7-2.4) 03/21/24 01:40 Total Bilirubin 0.4 mg/dl (0.2-1.0) 03/21/24 01:40 AST 34 U/L (13-39) 03/21/24 01:40 ALT 16 U/L (7-52) 03/21/24 01:40 Alkaline Phosphatase 194 U/L (34-104) H 03/21/24 01:40 Total Protein 6.8 gm/dl (6.0-8.3) 03/21/24 01:40 Albumin 3.8 gm/dl (3.4-5.0) 03/21/24 01:40 Globulin 3.0 gm/dl (2.5-4.0) 03/21/24 01:40 Albumin/Globulin Ratio 1.3 (0.9-2) 03/21/24 01:40 Lipase 32 U/L (11-82) 03/21/24 01:40 Impressions Abdomen/Pelvis CT 03/21/24 01:13 Exam(s): CT ABDOMEN + PELVIS With Contrast IV Amt: 94 ml EXAM: CT Abdomen and Pelvis With Intravenous Contrast CLINICAL HISTORY: Reason for exam: left flank/low back pain. TECHNIQUE: Axial computed tomography images of the abdomen and pelvis with intravenous contrast. CTDI is 19.42 mGy and DLP is 928.27 mGy-cm. Automated exposure control was utilized for the study. A dose lowering technique was utilized adhering to the principles of ALARA. CONTRAST: Patient received 94 ml of IV contrast COMPARISON: 02/03/2017 FINDINGS: Lung bases: Left basilar atelectasis. Heart: Small pericardial effusion. Cardiomegaly. ABDOMEN: Liver: Unremarkable. No mass. Gallbladder and bile ducts: Postoperative changes prior cholecystectomy. No ductal dilation. Pancreas: Unremarkable. No mass. No ductal dilation. Spleen: Unremarkable. No splenomegaly. Adrenals: Unremarkable. No mass. Kidneys and ureters: Bilateral renal parenchymal thinning. Multiple bilateral renal hypodensities likely representing cysts measuring up to 2. 7 cm on the right and 2.1 cm on the left. No hydronephrosis. Stomach and bowel: Unremarkable. No obstruction. No mucosal thickening. PELVIS: Appendix: No findings to suggest acute appendicitis. Bladder: Unremarkable. No mass. Reproductive: Uterus is surgically absent. ABDOMEN and PELVIS: Intraperitoneal space: Unremarkable. No free air. No significant fluid collection. Bones/joints: Postoperative changes L2-L3 posterior laminectomies. Stable since prior exam. No acute fracture. No dislocation. Soft tissues: Unremarkable. Vasculature: Unremarkable. No abdominal aortic aneurysm. Lymph nodes: Unremarkable. No enlarged lymph nodes. IMPRESSION: Small pericardial effusion. Cardiomegaly Other chronic changes as described above Electronically signed by: Lavon Holden MD 03/21/24 04:[address] 03/21/24 01:13 CR Exam(s): CT L SPINE With Contrast IV Amt: 94 ml EXAM: CT Lumbar Spine With Intravenous Contrast CLINICAL HISTORY: Reason for exam: left low back pain/hx T12 comp fx. TECHNIQUE: Axial computed tomography images of the lumbar spine with intravenous contrast. CTDI is 19.42 mGy and DLP is 928.27 mGy-cm. Automated exposure control was utilized for the study. A dose lowering technique was utilized adhering to the principles of ALARA. CONTRAST: Patient received 94 ml of IV contrast COMPARISON: Prior CT scan of the pelvis from February 03, 2017. FINDINGS: Vertebrae: There is an acute single column inferior endplate fracture of the T12 vertebral body with 29% loss of vertebral body height. Patient is status post posterior decompression of L2 and L3 with expected postsurgical changes. Positive [place] sign at L4-5 and L5-S1. Diffuse osteopenia throughout the visualized bones. Discs/spinal canal/neural foramina: No acute findings. Severe spinal canal stenosis at L4-5. Soft tissues: Advanced atrophy of the psoas, paraspinous and intraspinous musculature. IMPRESSION: There is an acute single column inferior endplate fracture of the T12 vertebral body with 29% loss of vertebral body height. This fracture is amenable to vertebroplasty or kyphoplasty. Communications: Verify Receipt Electronically signed by: Vanessa Max MD 03/21/24 03:56 AM Diagnostic Findings Chest x-ray as per my interpretation cardiomegaly, minimal congestion EKG as per my interpretation : Rate 80, atrial flutter, LAD, LAFB, nonspecific T wave abnormalities
[2024-03-21] MEDS ORDERED: HYDROmorphone INJ 0.5 MG/0.5 ML SYR IV PRN (06:31)
--- NOTE | 2024-03-21 08:27 | XRay Report ---
XR chest 1V portable HISTORY: 83 years-old Female renal failure acute chest pain with renal failure COMPARISON: Chest CT 01/13/2024 TECHNIQUE: AP view of the chest FINDINGS: Cardiac silhouette is enlarged. Left subclavian pacer. Pulmonary vascular congestion with interstitia l coarsening. No pneumothorax or pleural effusion. Mild left basilar atelectasis. Cervical spinal fus ion hardware. Bones appear grossly intact. IMPRESSION: 1. Cardiomegaly with pulmonary vascular congestion and possible mild pulmonary edema. 2. Left basilar opacities favor atelectasis. ACT 112: Negative or not required by law. The above report was generated using voice recognition software. It may contain grammatical, syntax o r spelling errors. Electronically signed by: Talha Caballero M.D. 03/21/2024 8:26 AM
[2024-03-21] MEDS ORDERED: IPRATROPIUM BROMIDE NASAL SPRAY 0.06% 15ML NAE PRN (08:39)
[2024-03-21] MEDS ORDERED: GLUCAGON FOR INJ 1 MG VIAL SQ PRN (08:42)
[2024-03-21] MEDS ORDERED: GLUCOSE 40% GEL 15 GM TUBE PO PRN (08:42)
[2024-03-21] MEDS ORDERED: GLUCOSE 10 TAB/TUBE PO PRN (08:42)
[2024-03-21] MEDS ORDERED: DEXTROSE 50% 50 ML SYRINGE IV PRN (08:42)
[2024-03-21] MEDS: SODIUM CHLORIDE 0.9% 500 ML IV STA (08:56)
[2024-03-21] MEDS: SERTRALINE HCL 50 MG TABLET PO SCH (09:36)
[2024-03-21] MEDS: ATORVASTATIN 20 MG TAB PO SCH (09:36)
[2024-03-21] MEDS: CYANOCOBALAMIN (B-12) 100 MCG TABLET PO SCH (09:37)
[2024-03-21] MEDS: FOLIC ACID 1 MG TAB PO SCH (09:38)
[2024-03-21] MEDS: PANTOprazole 40 MG TAB PO SCH (09:39)
[2024-03-21] MEDS: CETIRIZINE HCL 10 MG TABLET PO SCH (09:39)
[2024-03-21] MEDS: UMECLIDINIUM/VILANTEROL 62.5/25MCG 7 PUFFS/INHALER INH SCH (09:53)
[2024-03-21] MEDS: INSULIN ASPART PER UNIT CHARGE SC SCH (09:53)
--- NOTE | 2024-03-21 10:41 | Hospitalist Progress Note ---
Date of Service March 21, 2024 Assessment & Plan (1) Pericardial effusion: (2) Low back pain: (3) Fall: (4) Closed T12 fracture: (5) Acute dehydration: Plan Pt is an 83-year-old female with past medical history significant for type 2 diabetes, diabetic retinopathy, CKD stage III, hypercholesterolemia, obstructive sleep apnea, moderate persistent asthma, paroxysmal atrial fibrillation, s/p watchman's device, history of mitral valve clip implantation, sick sinus syndrome s/p pacemaker, pulmonary hypertension, peripheral vascular disease, chronic diastolic CHF, angiodysplasia of colon, aneurysm of left carotid artery, severe tricuspid regurgitation, CAD , GERD, Mnire's disease, iron deficiency anemia, depression, history of endometrial cancer , TIA who presented with concern for back pain. Back Pain T12 compression Fracture Pt presenting with back pain Lumbar spine CT noting t12 compression fracture UA and urine Cx pending Orthospine consulted, appreciate recs May benefit from pain management input. Pain control PT/OT when stable Acute kidney Injury on CKD Cr of 1.77 Noted baseline of 1.2 to 1.3 in October of this year gentle IV fluids Continue to monitor Pericardial Effusion Cardiomegaly Noted incidentally on CT abd/pelvis trop pending EKG noting atrial flutter Echo ordered and pending Consider Cardiology consult Worsening diarrhea Pt symptomatic C diff gene positive Allergy to vancomycin Started on Dificid 200mg BUD Anemia, chronic AM anemia panel Continue to monitor chronic diastolic heart failure some congestion on imaging although patient without symptoms Echo as above Holding home diuretic in setting of barrington/ckd Worsening diarrhea C diff Pt symptomatic C diff gene positive Allergy to vancomycin Started on Dificid 200mg BUD CAD/PVD SSS status post PPM A-fib patient currently in atrial flutter on Eliquis/history of Watchman device Eliquis to be discontinued in March 25 as per patient [facility] [place] hx MR status post mitral valve clip hypertension BP on the lower side Continue to monitor hyperlipidemia on statin Rx COPD RADHA/nocturnal hypoxemia pulmonary hypertension patient currently without pulmonary symptoms Stable DM 2 on oral medications, holding well-controlled as of recent hemoglobin A1c of 6.01 December 2023 ISS BG goal 1 10-1 40, carb count coverage Continue to monitor hypothyroidism recent outpatient TSH markedly elevated at 24 outpatient levothyroxine dose has been adjusted by PCP endometrial cancer status post surgery Diet: HH/DMII DVT prophylaxis: SCDs at this time while Eliquis on hold Dispo: PT/OT for further recs when appropriate Admission and Anticipated Discharge Date Admission Date: March 21, 2024 Subjective Pt was seen laying in bed. Notes she has been having more falls, one on 25 of February. States lots of pain. Denies chest pain, SOB, palpitations. States she never "feels it in my chest" Update provided to pt's son Bright who states he will relay information to Russ as russ's number not in the chart. Review of Systems Review of Systems: All systems reviewed & are unremarkable except as noted in Subjective Physical Exam Physical Exam: General: Alert, oriented. No acute distress Psych: Appropriate mood and affect HEENT: NC/AT Chest: Nontender to palpation. CV: Irregular Resp: Breath sounds clear bilaterally, no increased effort of breathing. Abdomen: Soft, nontender Extremities: edema in lower extremities bilaterally. Results & Data Results & Data Vital Signs (Past 12 Hours) Vital Signs Temp Pulse Pulse Pulse Resp BP BP 03/21/24 09:00 84 03/21/24 09:00 03/21/24 08:51 36.4 C L 03/21/24 08:01 75 18 137/87 03/21/24 07:00 74 18 104/63 03/21/24 05:09 84 03/21/24 05:00 84 18 105/56 L 03/21/24 05:00 79 20 105/56 L 03/21/24 04:00 76 18 104/64 03/21/24 03:00 81 18 106/67 03/21/24 02:00 80 18 103/58 L 03/21/24 01:46 123/64 03/21/24 01:40 78 20 103/58 L 03/21/24 00:47 36.5 C 85 18 120/74 Pulse Ox O2 Del Method O2 Flow Rate 03/21/24 09:00 03/21/24 09:00 Room Air 03/21/24 08:51 03/21/24 08:01 96 Room Air 03/21/24 07:00 94 Nasal Cannula 2 03/21/24 05:09 03/21/24 05:00 94 03/21/24 05:00 94 Nasal Cannula 2 03/21/24 04:00 94 03/21/24 03:00 95 Room Air 03/21/24 02:00 92 Room Air 03/21/24 01:46 03/21/24 01:40 98 03/21/24 00:47 95 Room Air Diagnostic Findings Abdomen/Pelvis CT 03/21/24 01:13 Exam(s): CT ABDOMEN + PELVIS With Contrast IV Amt: 94 ml EXAM: CT Abdomen and Pelvis With Intravenous Contrast CLINICAL HISTORY: Reason for exam: left flank/low back pain. TECHNIQUE: Axial computed tomography images of the abdomen and pelvis with intravenous contrast. CTDI is 19.42 mGy and DLP is 928.27 mGy-cm. Automated exposure control was utilized for the study. A dose lowering technique was utilized adhering to the principles of ALARA. CONTRAST: Patient received 94 ml of IV contrast COMPARISON: 02/03/2017 FINDINGS: Lung bases: Left basilar atelectasis. Heart: Small pericardial effusion. Cardiomegaly. ABDOMEN: Liver: Unremarkable. No mass. Gallbladder and bile ducts: Postoperative changes prior cholecystectomy. No ductal dilation. Pancreas: Unremarkable. No mass. No ductal dilation. Spleen: Unremarkable. No splenomegaly. Adrenals: Unremarkable. No mass. Kidneys and ureters: Bilateral renal parenchymal thinning. Multiple bilateral renal hypodensities likely representing cysts measuring up to 2. 7 cm on the right and 2.1 cm on the left. No hydronephrosis. Stomach and bowel: Unremarkable. No obstruction. No mucosal thickening. PELVIS: Appendix: No findings to suggest acute appendicitis. Bladder: Unremarkable. No mass. Reproductive: Uterus is surgically absent. ABDOMEN and PELVIS: Intraperitoneal space: Unremarkable. No free air. No significant fluid collection. Bones/joints: Postoperative changes L2-L3 posterior laminectomies. Stable since prior exam. No acute fracture. No dislocation. Soft tissues: Unremarkable. Vasculature: Unremarkable. No abdominal aortic aneurysm. Lymph nodes: Unremarkable. No enlarged lymph nodes. IMPRESSION: Small pericardial effusion. Cardiomegaly Other chronic changes as described above Electronically signed by: Lavon Holden MD 03/21/24 04:[address] 03/21/24 01:13 CR Exam(s): CT L SPINE With Contrast IV Amt: 94 ml EXAM: CT Lumbar Spine With Intravenous Contrast CLINICAL HISTORY: Reason for exam: left low back pain/hx T12 comp fx. TECHNIQUE: Axial computed tomography images of the lumbar spine with intravenous contrast. CTDI is 19.42 mGy and DLP is 928.27 mGy-cm. Automated exposure control was utilized for the study. A dose lowering technique was utilized adhering to the principles of ALARA. CONTRAST: Patient received 94 ml of IV contrast COMPARISON: Prior CT scan of the pelvis from February 03, 2017. FINDINGS: Vertebrae: There is an acute single column inferior endplate fracture of the T12 vertebral body with 29% loss of vertebral body height. Patient is status post posterior decompression of L2 and L3 with expected postsurgical changes. Positive [place] sign at L4-5 and L5-S1. Diffuse osteopenia throughout the visualized bones. Discs/spinal canal/neural foramina: No acute findings. Severe spinal canal stenosis at L4-5. Soft tissues: Advanced atrophy of the psoas, paraspinous and intraspinous musculature. IMPRESSION: There is an acute single column inferior endplate fracture of the T12 vertebral body with 29% loss of vertebral body height. This fracture is amenable to vertebroplasty or kyphoplasty. Communications: Verify Receipt Electronically signed by: Vanessa Max MD 03/21/24 03:56 AM Chest X-Ray 03/21/24 05:16 XR chest 1V portable HISTORY: 83 years-old Female renal failure acute chest pain with renal failure COMPARISON: Chest CT 01/13/2024 TECHNIQUE: AP view of the chest FINDINGS: Cardiac silhouette is enlarged. Left subclavian pacer. Pulmonary vascular congestion with interstitial coarsening. No pneumothorax or pleural effusion. Mild left basilar atelectasis. Cervical spinal fusion hardware. Bones appear grossly intact. IMPRESSION: 1. Cardiomegaly with pulmonary vascular congestion and possible mild pulmonary edema. 2. Left basilar opacities favor atelectasis. ACT 112: Negative or not required by law. The above report was generated using voice recognition software. It may contain grammatical, syntax or spelling errors. Electronically signed by: Talha Caballero M.D. 03/21/2024 8:26 AM (3) Fall Encounter type: initial encounter Qualified Code(s): W19.XXXA - Unspecified fall, initial encounter (4) Closed T12 fracture Encounter type: initial encounter Fracture morphology: wedge compression Qualified Code(s): S22.080A - Wedge compression fracture of T11-T12 vertebra, initial encounter for closed fracture
[2024-03-21] MEDS: COLESTIPOL HCL 1 GM TAB PO SCH (11:56)
[2024-03-21 15:15] LABS: Appearance Urine Clear (Clear); Bacteria Urine Automated None Seen (None Seen); Bilirubin Urine Negative (Negative); Blood Urine Negative (Negative); Color Urine Yellow; Glucose Urine UA Negative (Negative); Ketones Urine Negative (Negative); Leukocyte Esterase Urine 1+ (Negative); Nitrite Urine Negative (Negative); Protein Urine Negative (Negative); RBC Urine Automated 0-2 /hpf (0-2); Specific Gravity Urine 1.032 (1.000-1.030); Urobilinogen Urine Negative (Negative); pH Urine 5.5 (4.5-7.5)
[2024-03-21 16:26] LABS: Cdiff Toxin B Gene (2yr or >) Positive Cdiff Gene (Neg)
[2024-03-21 17:34] LABS: Cdiff Antigen Positive; Cdiff Toxin A+B Negative Cdiff Toxin (Negative)
[2024-03-21] MEDS ORDERED: CHERRY SYRUP 5 ML UDP PO SCH (18:00)
[2024-03-21] MEDS: oxyCODONE HCL IR 5 MG TAB (IMMEDIATE RELEASE) PO PRN (20:20)
[2024-03-21] MEDS: FIDAXOMICIN 200 MG TAB PO SCH (20:22)
[2024-03-21] MEDS: allopurinoL 300 MG TAB PO SCH (20:23)
[2024-03-21] MEDS: MONTELUKAST SODIUM 10 MG TABLET PO SCH (20:24)
[2024-03-21] MEDS: METOPROLOL SUCC 25MG EXT REL TAB PO SCH (20:24)
--- NOTE | 2024-03-21 21:27 | Electrocardiogram Report ---
Test Reason : Blood Pressure : / mmHG Vent. Rate : 082 BPM Atrial Rate : 326 BPM P-R Int : 000 ms QRS Dur : 078 ms QT Int : 350 ms P-R-T Axes : 000 000 203 degrees QTc Int : 408 ms Atrial fibrillation Nonspecific ST and T wave abnormality Abnormal ECG When compared with ECG of 13-OCT-2023 15:33, Atrial fibrillation has replaced AV pacing Confirmed by Allan Paulino ([id number]) on 03/21/2024 9:27:27 PM Referred By: REFERRED SELF Confirmed By:Allan Paulino
[2024-03-22] MEDS: LEVOTHYROXINE SODIUM 175 MCG TABLET PO SCH (05:51)
[2024-03-22 07:30] LABS: Basophils # (auto) 0.03 K/uL (0.00-0.20); Basophils % (auto) 0.3 %; Eosinophils # (auto) 0.39 K/uL (0.00-0.50); Eosinophils % (auto) 4.5 %; Hematocrit (blood only) 30.4 % (37.0-47.0); Hemoglobin 9.7 g/dl (12.0-16.0); Immature Granulocytes # (auto) 0.02 K/uL (0.01-0.20); Immature Granulocytes % (auto) 0.2 %; Lymphocytes # (auto) 0.87 K/uL (1.20-3.40); Mean Corpuscular Hgb Conc 31.9 g/dL (32.0-36.0); Mean Corpuscular Volume 94.1 fL (80.0-100.0); Mean Platelet Volume 11.1 fL (9.4-12.4); Monocytes # (auto) 0.72 K/uL (0.11-0.59); Monocytes % (auto) 8.3 %; Neutrophils # (auto) 6.63 K/uL (1.40-6.50); Neutrophils % (auto) 76.7 %; Platelet Count 180 K/uL (130-400); RDW Coefficient of Variation 16.4 % (11.5-14.5); RDW Standard Deviation 56.4 fL (36.4-46.3); Red Blood Count 3.23 M/uL (4.20-5.40); White Blood Count 8.66 K/ul (4.8-10.8)
[2024-03-22 07:49] LABS: BUN Creatinine Ratio 28.5 (10-20); Calcium 8.8 mg/dl (8.6-10.3); Creatinine Clr Calc Pharmacy 29.7 ml/min; Est GFR (African American) 38.8 ml/min; Est GFR (Non-African American) 33.5 ml/min; Magnesium 1.8 mg/dl (1.7-2.4); Phosphorus 3.6 mg/dl (2.5-4.9); Potassium 3.6 mmol/L (3.5-5.1)
[2024-03-22] MEDS: LIDOCAINE 5% 1 PATCH TD SCH (09:12)
--- NOTE | 2024-03-22 09:27 | Consultation ---
Date of Consultation March 22, 2024 Assessment & Plan (1) Thoracic compression fracture: Dr. Reese has reviewed imaging and treatment plan. During my interview with Ms. Barakat her son Bright was present on the phone and displayed understanding of plan. Treatment is conservative. I will order a TLSO brace to be worn when standing and walking. May remove when in a seated position or when lying down. Continue with current pain control as she is much more comfortable. Ambulate ad hawk. She may participate in physical therapy. No lifting over 5 pounds. She can follow-up in the office in a few weeks. Will sign off. History of Present Illness Attending Physician: Ashley Wilkisnon MD History of Present Illness Is a pleasant 83-year-old female who sustained a fall while sitting on a bench at the [employer] On February 26. She landed on her buttock. Typically at home she ambulates with a walker. She lives with her . She had pain since her event [place] [facility].. She went to the ER 2 weeks ago and was diagnosed with an acute T12 compression fracture. It does not appear that she had any follow-up from this. No bracing. She has been using [id number] pain medicine at home. No radicular pain. Pain is quite limiting for her when she changes positions from laying down to a seated position. Pain is under better control over the past 24 hours since her admission yesterday. Patient currently has C. difficile positive gene and is symptomatic therefore being treated. Allergies Allergy/AdvReac Type Severity Reaction Status Date / Time Sulfa (Sulfonamide Allergy Severe Severe Verified 03/07/24 11:30 Antibiotics) rxn: rash and hives celecoxib Allergy Intermediate Rash/Hives/ Verified 03/07/24 11:30 Itching. cephalexin Allergy Intermediate Rash/Hives/ Verified 03/07/24 11:30 Itching. furosemide Allergy Intermediate Rash/Hives/ Verified 03/07/24 11:30 Itching. gabapentin Allergy Intermediate Rash/Hives/ Verified 03/07/24 11:30 Itching. pregabalin Allergy Intermediate Rash/Hives/ Verified 03/07/24 11:30 Itching. meclizine Allergy Unknown Unknown Verified 03/07/24 11:30 methylprednisolone Allergy Unknown Rash/Hives/ Verified 03/07/24 11:30 Itching. Penicillins Allergy Unknown Unknown. Verified 03/07/24 11:30 prednisone Allergy Unknown Rash/Hives/ Verified 03/07/24 11:30 Itching. vancomycin Allergy Unknown Jodi Verified 03/07/24 11:30 syn. . nickel Allergy Unknown Verified 03/07/24 11:30 dexamethasone AdvReac Intermediate Steroid Verified 03/07/24 11:30 psychosis. Home Medications Medication Instructions Recorded Confirmed Type montelukast 10 mg tablet 10 mg PO PM 04/08/19 03/21/24 History atorvastatin 20 mg tablet 20 mg PO QAM 11/26/21 03/21/24 History cholecalciferol (vitamin D3) 50 100 mcg PO QAM 11/26/21 03/21/24 History mcg (2,000 unit) capsule (Vitamin D3) levalbuterol tartrate 45 1 puff inhalation Q4H PRN 08/07/22 03/21/24 History mcg/actuation aerosol inhaler Shortness Of Breath (Xopenex HFA) sertraline 100 mg tablet 150 mg PO QAM 08/07/22 03/21/24 History cyanocobalamin (vitamin B-12) 100 100 mcg PO QAM 11/07/22 03/21/24 History mcg tablet (Vitamin B-12) folic acid 1 mg tablet 1 mg PO QAM 11/07/22 03/21/24 History tiotropium 2.5 mcg-olodaterol 2.5 2 puff inhalation QAM 11/07/22 03/21/24 History mcg/actuation mist for inhalation (Stiolto Respimat) torsemide 10 mg tablet 20 mg PO QAM 11/07/22 03/21/24 History ipratropium bromide 21 mcg (0.03 2 spray intranasal DAILY PRN 12/06/22 03/21/24 History %) nasal spray rhinorrhea pantoprazole 40 mg tablet,delayed 40 mg PO BID #60 tabs 12/09/22 03/21/24 Rx release allopurinol 300 mg tablet 300 mg PO HS 08/14/23 03/21/24 History apixaban 2.5 mg tablet (Eliquis) 2.5 mg PO AMHS 10/09/23 03/21/24 History cetirizine 10 mg tablet 10 mg PO QAM #30 tabs 10/22/23 03/21/24 Rx metoprolol succinate 25 mg 25 mg PO BID #60 tabs 10/22/23 03/07/24 Rx tablet,extended release 24 hr colestipol 1 gram tablet 1 g PO BID 03/07/24 03/21/24 History diphenoxylate-atropine 2.5 1 tab PO BID PRN Diarrhea 03/07/24 03/21/24 History mg-0.025 mg tablet lidocaine 5 % topical patch 1 patch topical DAILY PRN pain #15 03/07/24 03/21/24 Rx (Lidoderm) ea oxycodone 5 mg tablet 2.5 mg PO UD PRN pain 03/07/24 03/21/24 History levothyroxine 175 mcg tablet 175 mcg PO DAILY 03/21/24 03/21/24 History fentanyl 12 mcg/hr transdermal 12 mcg transdermal Q3D 03/23/24 03/23/24 History patch Patient History Medical History Angio-edema Nausea Leukocytosis Near syncope Hypotension Dehydration TIFFANY (acute kidney injury) Near syncope Elevated brain natriuretic peptide (BNP) level Pneumonia Atrial flutter Carotid artery aneurysm Prolonged QT interval Atrial fibrillation with RVR DM type 2 (diabetes mellitus, type 2) Encounter for pre-operative examination Cholelithiasis Cholecystitis Chest pain at rest Pulmonary emphysema Osteoarthritis of right knee HTN (hypertension) Surgical History History of hysterectomy History of cholecystectomy Family History Father Diabetes Social History Smoking Status: Never smoker Tobacco Type: Cigarettes packs per day: 1.5; Cigarettes Per Day: 30; Second Hand Exposure: No; Do You Dip or Chew Tobacco: No; Hx Alcohol Use: No Hx Substance Use: No Preferred Language: Bermudian Communication Ability: Effective Principal Developer Required: No Beliefs That Will Affect Care: None marital status: Current Living Situation: Spouse Other Information That Helps Us Care for You: No Feels Safe at Home: Yes Safety Concerns: Feels Safe At This Time Assistive Devices: Hearing Aid - Bilateral, Oxygen - at Night and Walker Review of Systems Review of Systems: All systems reviewed & are unremarkable except as noted in HPI & below Physical Exam Physical Exam: Patient is laying in bed in no acute distress Alert and oriented x 3 Cooperative with exam 5/5 bilateral EHL, dorsiflexion, plantar flexion, quadriceps and hamstrings Negative tension signs bilaterally Results & Data Vital Signs (Past 12 Hours) Vital Signs Temp Pulse Pulse Resp BP Pulse Ox O2 Del Method 03/22/24 08:07 36.6 C 83 18 121/68 94 Room Air 03/22/24 03:48 36.6 C 79 16 117/68 94 Room Air 03/21/24 23:26 64 03/21/24 22:00 36.9 C 81 18 116/70 91 Room Air Diagnostic Findings [place], [place] [phone] CT Scan Report Patient: LORI BARAKAT Admit Date: 03/21/24 MR#: [id number] Address1: 1944 [facility] Acct ID:[id number] Address2: Date: 1940 [facility] Zip: [place] [address] Age: 83 Location: ED Sex: F Room/Bed: Att Phy: Diagnosis: POSS KIDNEY STONE, T12 FX Lynda Phy: Florentin Calvo DO Service Date: 03/21/24 [facility] Phy: Interpreting Phy: Vanessa Max MDAdmit Phy: Ordering Phy: Lissette Benavidez DO cc: ~ ADDENDUM ADDENDUM: 03/21/24 04:07 Verify Receipt Verified receipt with Ernie Michaels and report was relayed to Dr Benavidez on 03/21 04:06 (-04:00) Electronically signed by: Vanessa Max MD Electronically signed by: Vanessa Max MD 03/21/24 03:56 AM ADDENDUM END Exam(s): CT L SPINE With Contrast IV Amt: 94 ml EXAM: CT Lumbar Spine With Intravenous Contrast CLINICAL HISTORY: Reason for exam: left low back pain/hx T12 comp fx. TECHNIQUE: Axial computed tomography images of the lumbar spine with intravenous contrast. CTDI is 19.42 mGy and DLP is 928.27 mGy-cm. Automated exposure control was utilized for the study. A dose lowering technique was utilized adhering to the principles of ALARA. CONTRAST: Patient received 94 ml of IV contrast COMPARISON: Prior CT scan of the pelvis from February 03, 2017. FINDINGS: Vertebrae: There is an acute single column inferior endplate fracture of the T12 vertebral body with 29% loss of vertebral body height. Patient is status post posterior decompression of L2 and L3 with expected postsurgical changes. Positive [place] sign at L4-5 and L5-S1. Diffuse osteopenia throughout the visualized bones. Discs/spinal canal/neural foramina: No acute findings. Severe spinal canal stenosis at L4-5. Soft tissues: Advanced atrophy of the psoas, paraspinous and intraspinous musculature. IMPRESSION: There is an acute single column inferior endplate fracture of the T12 vertebral body with 29% loss of vertebral body height. This fracture is amenable to vertebroplasty or kyphoplasty. Communications: Verify Receipt Electronically signed by: Vanessa Max MD 03/21/24 03:56 AM Dictated: 03/21/24 0356 Transcribed: 03/21/24 0356 [place], [place] [phone] CT Scan Report Patient: LORI BARAKAT Admit Date: 03/07/24 MR#: [id number] Address1: 1944 [facility] Acct ID:[id number] Address2: Date: 1940 [facility] Zip: [place] [address] Age: 83 Location: ED Sex: F Room/Bed: Att Phy: Diagnosis: BACK PAIN Lynda Phy: Florentin Calvo DO Service Date: 03/07/24 Fam Phy: Interpreting Phy: Jean-Claude Anderson MDAdmit Phy: Ordering Phy: Leandro Aceves MD cc: ~ LUMBAR SPINE CT CT DOSE: 1553.77 mGy.cm HISTORY: Back Pain TECHNIQUE: Multiaxial CT images of the lumbar spine were performed and reformatted in the sagittal and coronal plane without the use of contrast. A dose lowering technique was utilized adhering to the principles of ALARA. COMPARISON: Abdomen and pelvis CT 01/13/2024. FINDINGS: Mild dextroscoliosis of the lumbar spine. Posterior decompression at L2-L3. There is an acute mild inferior endplate compression fracture at T12. This demonstrates less than 10% loss of height centrally. No associated retropulsion. Mild prevertebral edema noted at the T12 level. No additional fractures within the lumbar spine. Severe disc space narrowing and moderate facet osteoarthritis throughout the lumbar spine. There is grade 1 retrolisthesis of L2 on L3. The visualized sacrum is intact. IMPRESSION: 1. An acute mild inferior endplate compression fracture at T12. No associated retropulsion. 2. Postoperative and degenerative changes as described above. ACT 112: Negative or not required by law. Electronically signed by: Jean-Claude Anderosn M.D. 03/07/2024 11:25 AM Dictated: 03/07/24 112 Transcribed: 03/07/24 112
--- NOTE | 2024-03-22 15:40 | Hospitalist Progress Note ---
Date of Service March 22, 2024 Assessment & Plan (1) Pericardial effusion: (2) Low back pain: Plan Pt is an 83-year-old female with past medical history significant for type 2 diabetes, diabetic retinopathy, CKD stage III, hypercholesterolemia, obstructive sleep apnea, moderate persistent asthma, paroxysmal atrial fibrillation, s/p watchman's device, history of mitral valve clip implantation, sick sinus syndrome s/p pacemaker, pulmonary hypertension, peripheral vascular disease, chronic diastolic CHF, angiodysplasia of colon, aneurysm of left carotid artery, severe tricuspid regurgitation, CAD , GERD, Mnire's disease, iron deficiency anemia, depression, history of endometrial cancer , TIA who presented with concern for back pain. Back Pain T12 compression Fracture Pt presenting with back pain Lumbar spine CT noting t12 compression fracture UA and urine Cx pending Orthospine consulted, appreciate recs May benefit from pain management input. Pain control- pt has home fentanyl 12mcg patch on PT/OT when stable Acute kidney Injury on CKD Cr of 1.77 Noted baseline of 1.2 to 1.3 in October of this year gentle IV fluids Continue to monitor improving Pericardial Effusion Cardiomegaly Noted incidentally on CT abd/pelvis trop pending EKG noting atrial flutter Echo ordered and pending Consider Cardiology consult Worsening diarrhea Pt symptomatic C diff gene positive Allergy to vancomycin Started on Dificid 200mg BUD Anemia, chronic AM anemia panel Continue to monitor chronic diastolic heart failure some congestion on imaging although patient without symptoms Echo as above Holding home diuretic in setting of bar[place]/ckd Worsening diarrhea C diff Pt symptomatic C diff gene positive Allergy to vancomycin Started on Dificid 200mg BUD CAD/PVD SSS status post PPM A-fib patient currently in atrial flutter on Eliquis/history of Watchman device Eliquis to be discontinued in March 25 as per patient [facility] [place] [facility] solutions specialist hx MR status post mitral valve clip hypertension BP on the lower side Continue to monitor hyperlipidemia on statin Rx COPD RADHA/nocturnal hypoxemia pulmonary hypertension patient currently without pulmonary symptoms Stable DM 2 on oral medications, holding well-controlled as of recent hemoglobin A1c of 6.01 December 2023 ISS BG goal 1 10-1 40, carb count coverage Continue to monitor hypothyroidism recent outpatient TSH markedly elevated at 24 outpatient levothyroxine dose has been adjusted by PCP endometrial cancer status post surgery Diet: HH/DMII DVT prophylaxis: SCDs at this time while Eliquis on hold Dispo: PT/OT for further recs when appropriate Admission and Anticipated Discharge Date Admission Date: March 21, 2024 Subjective Pt was seen laying in bed. pain improved but still persistent. has fentanyl patch prescribed by her pcp Review of Systems Review of Systems: All systems reviewed & are unremarkable except as noted in Subjective Physical Exam Physical Exam: General: Alert, oriented. No acute distress Psych: Appropriate mood and affect HEENT: NC/AT Chest: Nontender to palpation. CV: Irregular Resp: Breath sounds clear bilaterally, no increased effort of breathing. Abdomen: Soft, nontender Extremities: edema in lower extremities bilaterally. Results & Data Results & Data Vital Signs (Past 12 Hours) Vital Signs Temp Pulse Pulse Resp BP Pulse Ox O2 Del Method 03/22/24 15:22 36.6 C 76 18 132/76 97 Room Air 03/22/24 14:28 77 03/22/24 11:30 36.5 C 85 18 122/74 94 Room Air 03/22/24 11:28 75 03/22/24 08:07 36.6 C 83 18 121/68 94 Room Air 03/22/24 03:48 36.6 C 79 16 117/68 94 Room Air
[2024-03-22] MEDS: CHECK fentaNYL PATCH PLACEMENT SCH (19:30)
[2024-03-22] MEDS: CARBOHYDRATES FOR HYPOGLYCEMIA PO PRN (20:18)
[2024-03-23 06:30] LABS: Basophils # (auto) 0.02 K/uL (0.00-0.20); Basophils % (auto) 0.3 %; Eosinophils # (auto) 0.39 K/uL (0.00-0.50); Eosinophils % (auto) 4.9 %; Hematocrit (blood only) 30.8 % (37.0-47.0); Hemoglobin 9.7 g/dl (12.0-16.0); Immature Granulocytes # (auto) 0.03 K/uL (0.01-0.20); Immature Granulocytes % (auto) 0.4 %; Lymphocytes # (auto) 1.07 K/uL (1.20-3.40); Lymphocytes % (auto) 13.5 %; Mean Corpuscular Hemoglobin 29.7 pg (25.0-34.0); Mean Corpuscular Hgb Conc 31.5 g/dL (32.0-36.0); Mean Corpuscular Volume 94.2 fL (80.0-100.0); Monocytes # (auto) 0.73 K/uL (0.11-0.59); Monocytes % (auto) 9.2 %; Neutrophils # (auto) 5.67 K/uL (1.40-6.50); Neutrophils % (auto) 71.7 %; Platelet Count 183 K/uL (130-400); RDW Coefficient of Variation 16.4 % (11.5-14.5); RDW Standard Deviation 57.2 fL (36.4-46.3); Red Blood Count 3.27 M/uL (4.20-5.40); White Blood Count 7.91 K/ul (4.8-10.8)
[2024-03-23 06:47] LABS: BUN Creatinine Ratio 27.6 (10-20); Calcium 8.9 mg/dl (8.6-10.3); Creatinine Clr Calc Pharmacy 27.4 ml/min; Est GFR (African American) 35.2 ml/min; Est GFR (Non-African American) 30.4 ml/min; Magnesium 1.9 mg/dl (1.7-2.4); Phosphorus 3.8 mg/dl (2.5-4.9)
--- NOTE | 2024-03-23 11:02 | XRay Report ---
XR chest 1V portable HISTORY: 83 years-old Female crackles acute shortness of breath COMPARISON: 03/21/2024 TECHNIQUE: AP view of the chest FINDINGS: Cardiac silhouette is enlarged. Aeration of the lungs with decreased pulmonary vascular congestion. L eft subclavian pacer. Blunting of the costophrenic angles. No pneumothorax or large pleural effusion. Improved aeration of the left lung base. Surgical clips project over the left heart border. Bones ap pear grossly intact. IMPRESSION: Cardiomegaly with decreased pulmonary vascular congestion. ACT 112: Negative or not required by law. The above report was generated using voice recognition software. It may contain grammatical, syntax o r spelling errors. Electronically signed by: Talha Caballero M.D. 03/23/2024 11:00 AM
[2024-03-23] MEDS: fentaNYL 12 MCG/HR TDSY TD SCH (12:25)
[2024-03-23] MEDS: ACETAMINOPHEN 325 MG TAB PO SCH (12:29)
--- NOTE | 2024-03-23 14:12 | Hospitalist Progress Note ---
Date of Service March 23, 2024 Assessment & Plan (1) Pericardial effusion: (2) Low back pain: Plan Pt is an 83-year-old female with past medical history significant for type 2 diabetes, diabetic retinopathy, CKD stage III, hypercholesterolemia, obstructive sleep apnea, moderate persistent asthma, paroxysmal atrial fibrillation, s/p watchman's device, history of mitral valve clip implantation, sick sinus syndrome s/p pacemaker, pulmonary hypertension, peripheral vascular disease, chronic diastolic CHF, angiodysplasia of colon, aneurysm of left carotid artery, severe tricuspid regurgitation, CAD , GERD, Mnire's disease, iron deficiency anemia, depression, history of endometrial cancer , TIA who presented with concern for back pain. Back Pain T12 compression Fracture Pt presenting with back pain Lumbar spine CT noting t12 compression fracture Urine culture negative Ortho spine consulted, recommend TLSO brace when standing and walking, ambulate ad hawk, no lifting > 5lbs, pain control schedule APAP, continue lidocaine patch, fentanyl pain, encourage pt to increase usage of oxy IR to keep pain at more of a steady state PT/OT Plan to d/c to home when pain controlled Acute kidney Injury on CKD Cr of 1.77 Noted baseline of 1.2 to 1.3 in October of this year cr 1.5 today, encourage fluids Pericardial Effusion Cardiomegaly Noted incidentally on CT abd/pelvis EKG noting atrial flutter Echo: no pericardial effusion s/p mitral valve clip, LA severely dilated, moderate mitral stenosis Worsening diarrhea Pt symptomatic C diff gene positive but tox negative ( Son bright reports she has been tx for cdiff in past with out improvement) Allergy to vancomycin, Started on Dificid 200mg BID will complete course Anemia, chronic AM anemia panel Continue to monitor hgb stable chronic diastolic heart failure CXR congestion improved today Echo as above, weights stable at 73kg Holding home diuretic in setting of [place]/ckd CAD/PVD SSS status post PPM A-fib patient currently in atrial flutter on Eliquis/history of Watchman device Eliquis to be discontinued in March 25 as [place] [facility] [place] MR status post mitral valve clip hypertension BP on the lower side Continue to monitor hyperlipidemia on statin Rx COPD RADHA/nocturnal hypoxemia pulmonary hypertension patient currently without pulmonary symptoms Stable DM 2 on oral medications, holding well-controlled as of recent hemoglobin A1c of 6.01 December 2023, obtain a1c in a.m. pt with low in 60s yesterday, given age will d/c sliding scale, continue to monitor BSG and consider re introducing if consistently elevated hypothyroidism recent outpatient TSH markedly elevated at 24 outpatient levothyroxine dose has been adjusted by PCP endometrial cancer status post surgery Diet: HH/DMII DVT prophylaxis: apixaban Dispo: plan to d/c home with services when able when pain is controlled likely in the next 1-2 days A total of 50 minutes was spent coordinating, documenting, and providing care for this patient excluding time spent in the performance of separately billed services. This included personally viewing all current laboratories and imaging studies, medication reconciliation, outpatient chart review, and discussion with specialists. Admission and Anticipated Discharge Date Admission Date: March 21, 2024 Subjective Patient was seen and examined in room 238. Follow-up thoracic compression fracture. History obtained from patient and son Bright was on the phone. Bright was concerned about her pain control. Patient also reports persistent diarrhea over the last 10 months. She denies fever, chills, sweats, lightheadedness, dizziness, chest pain, shortness, nausea or vomiting. Her chart was reviewed. She currently reports the pain is a 7 out of 10. Discussed with nursing who reports that she is not asking for pain medications. She received her back brace last evening but has not yet tried it. Review of Systems Review of Systems: All systems reviewed & are unremarkable except as noted in HPI & below Physical Exam Physical Exam: Gen: WD/WN, elderly, F, NAD, A&O x3 to basics HEENT: Normocephalic, atraumatic, conjunctivae moist, sclerae anicteric, mucous membranes moist. Lung: Clear to Auscultation bilaterally, with RLL crackles, no rhonchi or wheeze Heart: Afib, controled 80-90s, no murmurs, rubs, or gallops Abdomen: Soft, NT, ND +BS x 4 Extremities: No edema Skin: Warm, no rash, negative turgor. Results & Data Results & Data Vital Signs (Past 12 Hours) Vital Signs Temp Pulse Pulse Pulse Resp BP BP 03/23/24 10:53 36.5 C 72 19 111/67 03/23/24 07:40 78 03/23/24 07:16 36.5 C 76 18 123/75 03/23/24 02:34 36.4 C L 78 17 108/64 Pulse Ox O2 Del Method 03/23/24 10:53 95 Room Air 03/23/24 07:40 03/23/24 07:16 92 Room Air 03/23/24 02:34 93 Room Air Laboratory Results I have independently reviewed and interpreted patient's labs, bmp, mag, phos, cbc Diagnostic Findings Chest X-Ray 03/23/24 09:32 XR chest 1V portable HISTORY: 83 years-old Female crackles acute shortness of breath COMPARISON: 03/21/2024 TECHNIQUE: AP view of the chest FINDINGS: Cardiac silhouette is enlarged. Aeration of the lungs with decreased pulmonary vascular congestion. Left subclavian pacer. Blunting of the costophrenic angles. No pneumothorax or large pleural effusion. Improved aeration of the left lung base. Surgical clips project over the left heart border. Bones appear grossly intact. IMPRESSION: Cardiomegaly with decreased pulmonary vascular congestion. ACT 112: Negative or not required by law. The above report was generated using voice recognition software. It may contain grammatical, syntax or spelling errors. Electronically signed by: Talha Caballero M.D. 03/23/2024 11:00 AM Medications Administered Current Inpatient Medications Acetaminophen (Acetaminophen 325 Mg Tab) 650 mg PO QID [facility] Stop: 04/22/24 09:29 Last Admin: 03/23/24 12:29 Dose: 650 mg Allopurinol (Allopurinol 300 Mg Tab) 300 mg PO HS [facility] Stop: 04/20/24 20:59 Last Admin: 03/22/24 20:59 Dose: 300 mg Atorvastatin Calcium (Atorvastatin 20 Mg Tab) 20 mg PO QAM [facility] Stop: 04/20/24 08:59 Last Admin: 03/23/24 09:44 Dose: 20 mg Cetirizine HCl (Cetirizine Hcl 10 Mg Tablet) 10 mg PO QAM [facility] Stop: 04/20/24 08:59 Last Admin: 03/23/24 09:44 Dose: 10 mg Colestipol HCl (Colestipol Hcl 1 Gm Tab) 1 gm PO BID@1200,2100 [facility] Stop: 04/20/24 11:59 Last Admin: 03/23/24 12:12 Dose: Not Given Cyanocobalamin (Cyanocobalamin (B-12) 100 Mcg Tablet) 100 mcg PO QAM [facility] Stop: 04/20/24 08:59 Last Admin: 03/23/24 09:46 Dose: 100 mcg Dextrose (Dextrose 50% 50 Ml Syringe) 25 - 50 ml IV UD PRN; Protocol PRN Reason: Hypoglycemia Protocol Stop: 04/20/24 08:41 Fentanyl (Fentanyl 12 Mcg/Hr Tdsy) 1 patch TD Q72H [facility] Stop: 04/06/24 12:59 Last Admin: 03/23/24 12:25 Dose: 1 patch Fidaxomicin (Fidaxomicin 200 Mg Tab) 200 mg PO BID [facility] Stop: 03/31/24 20:59 Last Admin: 03/23/24 09:44 Dose: 200 mg Folic Acid (Folic Acid 1 Mg Tab) 1 mg PO QAM [facility] Stop: 04/20/24 08:59 Last Admin: 03/23/24 09:47 Dose: 1 mg Glucagon (Glucagon For Inj 1 Mg Vial) 1 mg SQ UD PRN; Protocol PRN Reason: Hypoglycemia Protocol Stop: 04/20/24 08:41 Glucose (Glucose 40% Gel 15 Gm Tube) 15 - 30 gm PO UD PRN; Protocol PRN Reason: Hypoglycemia Protocol Stop: 04/20/24 08:41 Glucose (Glucose 10 Tab/Tube) 4 - 8 tab PO UD PRN; Protocol PRN Reason: Hypoglycemia Treatment Stop: 04/20/24 08:41 Hydromorphone HCl (Hydromorphone Inj 0.5 Mg/0.5 Ml Syr) 0.25 mg IV Q4H PRN PRN Reason: Pain Stop: 04/04/24 06:30 Insulin Aspart (Insulin Aspart Per Unit Charge) 0 units SC ACHS [facility] Stop: 04/20/24 08:41 Last Admin: 03/23/24 12:24 Dose: 7 units Ipratropium [place] (Ipratropium [place] Nasal [place] 0.06% 15ml) 1 sprays OLVIN DAILY PRN PRN Reason: rhinorrhea Stop: 04/20/24 08:38 Levothyroxine Sodium (Levothyroxine Sodium 175 Mcg Tablet) 175 mcg PO DAILYBB [facility] Stop: 04/21/24 06:29 Last Admin: 03/23/24 05:14 Dose: 175 mcg Lidocaine (Lidocaine 5% 1 Patch) 1 patch TD DAILY [facility] Stop: 04/21/24 08:59 Last Admin: 03/23/24 09:48 Dose: 1 patch Metoprolol Succinate (Metoprolol Succ 25mg Ext Rel Tab) 25 mg PO BID [facility] Stop: 04/20/24 20:59 Last Admin: 03/23/24 09:45 Dose: 25 mg Miscellaneous (Remove Lidoderm Patch) 1 each N/A DAILY@2100 [facility] Stop: 04/20/24 17:59 Last Admin: 03/22/24 20:57 Dose: 1 each Miscellaneous (Carbohydrates For Hypoglycemia ) 15 - 30 gm PO UD PRN PRN Reason: Hypoglycemia Protocol Stop: 04/20/24 08:41 Last Admin: 03/22/24 20:18 Dose: 15 gm Miscellaneous (Check Fentanyl Patch Placement) 1 each N/A QS [facility] Stop: 04/21/24 19:29 Last Admin: 03/23/24 09:59 Dose: 1 each Miscellaneous (Fentanyl Patch Remove & Waste) 1 each N/A Q72H [facility] Stop: 04/22/24 12:58 Last Admin: 03/23/24 12:25 Dose: 1 each Montelukast Sodium (Montelukast Sodium 10 Mg Tablet) 10 mg PO PM [facility] Stop: 04/20/24 20:59 Last Admin: 03/22/24 21:00 Dose: 10 mg Oxycodone HCl (Oxycodone Hcl Ir 5 Mg Tab (Immediate Release)) 5 - 10 mg PO QID PRN PRN Reason: Pain Stop: 04/04/24 05:31 Last Admin: 03/23/24 09:43 Dose: 10 mg Pantoprazole Sodium (Pantoprazole 40 Mg Tab) 40 mg PO BID [facility] Stop: 04/20/24 08:59 Last Admin: 03/23/24 09:45 Dose: 40 mg Sertraline HCl (Sertraline Hcl 50 Mg Tablet) 150 mg PO QAM [facility] Stop: 04/20/24 08:59 Last Admin: 03/23/24 09:46 Dose: 150 mg Umeclidinium/Vilanterol (Umeclidinium/Vilanterol 62.5/25mcg 7 Puffs/Inhaler) 1 puffs INH QAM [facility] Stop: 04/20/24 08:59 Last Admin: 03/23/24 09:48 Dose: 1 puffs
[2024-03-23] MEDS ORDERED: fentaNYL 12 MCG/HR TDSY TD SCH (19:30)
[2024-03-23] MEDS: APIXABAN 2.5 MG TAB PO SCH (21:32)
[2024-03-24 06:36] LABS: Hematocrit (blood only) 29.6 % (37.0-47.0); Hemoglobin 9.5 g/dl (12.0-16.0); Mean Corpuscular Hemoglobin 29.5 pg (25.0-34.0); Mean Corpuscular Hgb Conc 32.1 g/dL (32.0-36.0); Mean Corpuscular Volume 91.9 fL (80.0-100.0); Mean Platelet Volume 10.6 fL (9.4-12.4); Nucleated RBC # (auto) 0.02 K/uL (0.00-0.12); Nucleated RBC % (auto) 0.3 %; Platelet Count 179 K/uL (130-400); RDW Coefficient of Variation 16.4 % (11.5-14.5); RDW Standard Deviation 55.1 fL (36.4-46.3); Red Blood Count 3.22 M/uL (4.20-5.40)
[2024-03-24 06:44] LABS: BUN Creatinine Ratio 25.7 (10-20); Calcium 8.8 mg/dl (8.6-10.3); Creatinine Clr Calc Pharmacy 25.4 ml/min; Est GFR (African American) 32.5 ml/min; Phosphorus 3.7 mg/dl (2.5-4.9); Potassium 4.2 mmol/L (3.5-5.1)
[2024-03-24] MEDS: CHOLECALCIFEROL 25 MCG (1000 UNITS) TAB PO SCH (08:00)
[2024-03-24 08:17] LABS: Estimated Average Glucose 151 mg/dl; Hemoglobin A1C 6.9 % (4.5-5.6)
[2024-03-24] MEDS: FERROUS SULFATE 325 MG TAB PO SCH (08:17)
--- NOTE | 2024-03-24 10:28 | Hospitalist Progress Note ---
Date of Service March 24, 2024 Assessment & Plan (1) Pericardial effusion: (2) Low back pain: Plan Pt is an 83-year-old female with past medical history significant for type 2 diabetes, diabetic retinopathy, CKD stage III, hypercholesterolemia, obstructive sleep apnea, moderate persistent asthma, paroxysmal atrial fibrillation, s/p watchman's device, history of mitral valve clip implantation, sick sinus syndrome s/p pacemaker, pulmonary hypertension, peripheral vascular disease, chronic diastolic CHF, angiodysplasia of colon, aneurysm of left carotid artery, severe tricuspid regurgitation, CAD , GERD, Mnire's disease, iron deficiency anemia, depression, history of endometrial cancer , TIA who presented with concern for back pain. Back Pain T12 compression Fracture Pt presenting with back pain Lumbar spine CT noting t12 compression fracture Urine culture negative Ortho spine consulted, recommend TLSO brace when standing and walking, ambulate ad hawk, no lifting > 5lbs, pain control schedule APAP, continue lidocaine patch, fentanyl pain, encourage pt to increase usage of oxy IR to keep pain at more of a steady state PT/OT Plan to d/c to home when pain controlled vs rehab based on PT Acute kidney Injury on CKD Cr of 1.77 on admission outpt demetrio review shows cr 1.3-1.7 cr 1.67 today, encourage fluids Pericardial Effusion Cardiomegaly Noted incidentally on CT abd/pelvis EKG noting atrial flutter Echo: no pericardial effusion s/p mitral valve clip, LA severely dilated, moderate mitral stenosis Worsening chronic diarrhea Pt symptomatic C diff gene positive but tox negative ( Son bright reports she has been tx for cdiff in past with out improvement) Allergy to vancomycin, Started on Dificid 200mg BID will complete course on 03/31/24 on colestipol, follows [facility], planned for EGD/C scope 05/21 Anemia, chronic Iron deficiency anemia panel reviewed, low iron start Ferrous sulfate BIDM, recommend repeat Iron panel in 6-8 weeks Continue to monitor hgb stable, EGD/Cscope 05/21/24 chronic diastolic heart failure CXR congestion improved today Echo as above, weights stable at 73kg Pt weights are stable, 72.1kg today from 73.3kg on admission euvolemic, continue to hold diuretic for now CAD/PVD SSS status post PPM A-fib patient currently in atrial flutter on Eliquis/history of Watchman device Eliquis to be discontinued after today and will start aspirin 81mg daily tomorrow hx MR status post mitral valve clip hypertension BP on the lower side of normal Continue to monitor hyperlipidemia on statin Rx COPD RADHA/nocturnal hypoxemia pulmonary hypertension patient currently without pulmonary symptoms Stable DM 2 a1c 6.9, diet controlled pt with low in 60s bsg on 03/22, given age will d/c sliding scale, continue to monitor BSG and consider re introducing if consistently elevated hypothyroidism recent outpatient TSH markedly elevated at 24 outpatient levothyroxine dose has been adjusted by PCP endometrial cancer status post surgery Diet: HH/DMII DVT prophylaxis: apixaban Dispo: Pt medically stable for d/c; pain appears much improved today, will get PT eval today to determine needs and consider d/c tomorrow with home health vs rehab A total of 46 minutes was spent coordinating, documenting, and providing care for this patient excluding time spent in the performance of separately billed services. This included personally viewing all current laboratories and imaging studies, medication reconciliation, outpatient chart review, and discussion with specialists. Admission and Anticipated Discharge Date Admission Date: March 21, 2024 Supervising Physician Co-Signing Physician Notes I have seen and discussed the case with the collaborating advanced practitioner. I agree with the above PN I have reviewed and confirmed the patients medical history, the findings on physical examination, and the patients diagnosis and treatment plan with Yuliana FULTON and agree with the information documented. I have reviewed the advanced practitioner's documentation, and I agree with, and take responsibility for the plan of care Subjective Patient was seen and examined in room 238. Follow-up thoracic compression fracture. History obtained from patient and son Bright was on the phone. Pt utilized oxy IR 10mg twice yesterday along with scheduled tylenol. She said she was up walking around with the brace and that felt different. She felt her pain was a bit better this morning. Bright felt Maribel was walking good yesterday, but much slower than normal. We discussed her iron deficiency and that she was on iron before, but stopped once iron was improved. Inga continues to have loose stools. She denies f/c/s, chest pain, sob, n/v/d. She is using her spirometer. She was talking about her 5 year old grandson that lives near [place]. Review of Systems Review of Systems: All systems reviewed & are unremarkable except as noted in HPI & below Physical Exam Physical Exam: Gen: WD/WN, elderly, F, NAD, A&O x3 to basics HEENT: Normocephalic, atraumatic, conjunctivae moist, sclerae anicteric, mucous membranes moist. Lung: Clear to Auscultation bilaterally, no w/r/r Heart: Afib,no murmurs, rubs, or gallops Abdomen: Soft, NT, ND +BS x 4 Extremities: No edema Skin: Warm, no rash, negative turgor. Results & Data Results & Data Vital Signs (Past 12 Hours) Vital Signs Temp Pulse Pulse Resp BP Pulse Ox O2 Del Method 03/24/24 07:08 36.5 C 74 17 110/69 95 Room Air 03/24/24 03:09 36.7 C 78 18 124/78 95 Room Air 03/23/24 23:12 36.8 C 75 18 118/74 96 Room Air 03/23/24 22:53 74 Laboratory Results I have independently reviewed and interpreted patient's labs, cbc, bmp, a1c, anemia panel Medications Administered Current Inpatient Medications Acetaminophen (Acetaminophen 325 Mg Tab) 650 mg PO QID [facility] Stop: 04/22/24 09:29 Last Admin: 03/24/24 08:00 Dose: 650 mg Allopurinol (Allopurinol 300 Mg Tab) 300 mg PO HS [facility] Stop: 04/20/24 20:59 Last Admin: 03/23/24 21:30 Dose: 300 mg Apixaban (Apixaban 2.5 Mg Tab) 2.5 mg PO AMHS [facility] Stop: 03/25/24 20:59 Last Admin: 03/24/24 08:00 Dose: 2.5 mg Atorvastatin Calcium (Atorvastatin 20 Mg Tab) 20 mg PO QAM [facility] Stop: 04/20/24 08:59 Last Admin: 03/24/24 08:00 Dose: 20 mg Cetirizine HCl (Cetirizine Hcl 10 Mg Tablet) 10 mg PO QAM [facility] Stop: 04/20/24 08:59 Last Admin: 03/24/24 08:00 Dose: 10 mg Colestipol HCl (Colestipol Hcl 1 Gm Tab) 1 gm PO BID@1200,2100 [facility] Stop: 04/20/24 11:59 Last Admin: 03/23/24 21:28 Dose: Not Given Cyanocobalamin (Cyanocobalamin (B-12) 100 Mcg Tablet) 100 mcg PO QAM [facility] Stop: 04/20/24 08:59 Last Admin: 03/24/24 08:12 Dose: 100 mcg Dextrose (Dextrose 50% 50 Ml Syringe) 25 - 50 ml IV UD PRN; Protocol PRN Reason: Hypoglycemia Protocol Stop: 04/20/24 08:41 Fentanyl (Fentanyl 12 Mcg/Hr Tdsy) 1 patch TD Q72H [facility] Stop: 04/06/24 12:59 Last Admin: 03/23/24 12:25 Dose: 1 patch Ferrous Sulfate (Ferrous Sulfate 325 Mg Tab) 325 mg PO BIDM [facility] Stop: 04/23/24 07:59 Last Admin: 03/24/24 08:17 Dose: 325 mg Fidaxomicin (Fidaxomicin 200 Mg Tab) 200 mg PO BID [facility] Stop: 03/31/24 20:59 Last Admin: 03/24/24 08:00 Dose: 200 mg Folic Acid (Folic Acid 1 Mg Tab) 1 mg PO QAM [facility] Stop: 04/20/24 08:59 Last Admin: 03/24/24 08:00 Dose: 1 mg Glucagon (Glucagon For Inj 1 Mg Vial) 1 mg SQ UD PRN; Protocol PRN Reason: Hypoglycemia Protocol Stop: 04/20/24 08:41 Glucose (Glucose 40% Gel 15 Gm Tube) 15 - 30 gm PO UD PRN; Protocol PRN Reason: Hypoglycemia Protocol Stop: 04/20/24 08:41 Glucose (Glucose 10 Tab/Tube) 4 - 8 tab PO UD PRN; Protocol PRN Reason: Hypoglycemia Treatment Stop: 04/20/24 08:41 Hydromorphone HCl (Hydromorphone Inj 0.5 Mg/0.5 Ml Syr) 0.25 mg IV Q4H PRN PRN Reason: Pain Stop: 04/04/24 06:30 Ipratropium [place] (Ipratropium [place] Nasal [place] 0.06% 15ml) 1 sprays OLVIN DAILY PRN PRN Reason: rhinorrhea Stop: 04/20/24 08:38 Levothyroxine Sodium (Levothyroxine Sodium 175 Mcg Tablet) 175 mcg PO DAILYBB [facility] Stop: 04/21/24 06:29 Last Admin: 03/24/24 06:11 Dose: 175 mcg Lidocaine (Lidocaine 5% 1 Patch) 1 patch TD DAILY [facility] Stop: 04/21/24 08:59 Last Admin: 03/24/24 08:02 Dose: 1 patch Metoprolol Succinate (Metoprolol Succ 25mg Ext Rel Tab) 25 mg PO BID [facility] Stop: 04/20/24 20:59 Last Admin: 03/24/24 08:00 Dose: 25 mg Miscellaneous (Remove Lidoderm Patch) 1 each N/A DAILY@2100 [facility] Stop: 04/20/24 17:59 Last Admin: 03/23/24 21:32 Dose: 1 each Miscellaneous (Carbohydrates For Hypoglycemia ) 15 - 30 gm PO UD PRN PRN Reason: Hypoglycemia Protocol Stop: 04/20/24 08:41 Last Admin: 03/22/24 20:18 Dose: 15 gm Miscellaneous (Check Fentanyl Patch Placement) 1 each N/A QS [facility] Stop: 04/21/24 19:29 Last Admin: 03/24/24 08:11 Dose: 1 each Miscellaneous (Fentanyl Patch Remove & Waste) 1 each N/A Q72H [facility] Stop: 04/22/24 12:58 Last Admin: 03/23/24 12:25 Dose: 1 each Montelukast Sodium (Montelukast Sodium 10 Mg Tablet) 10 mg PO PM [facility] Stop: 04/20/24 20:59 Last Admin: 03/23/24 21:30 Dose: 10 mg Oxycodone HCl (Oxycodone Hcl Ir 5 Mg Tab (Immediate Release)) 5 - 10 mg PO QID PRN PRN Reason: Pain Stop: 04/04/24 05:31 Last Admin: 03/23/24 21:47 Dose: 10 mg Pantoprazole Sodium (Pantoprazole 40 Mg Tab) 40 mg PO BID [facility] Stop: 04/20/24 08:59 Last Admin: 03/24/24 08:00 Dose: 40 mg Sertraline HCl (Sertraline Hcl 50 Mg Tablet) 150 mg PO QAM [facility] Stop: 04/20/24 08:59 Last Admin: 03/24/24 08:00 Dose: 150 mg Umeclidinium/Vilanterol (Umeclidinium/Vilanterol 62.5/25mcg 7 Puffs/Inhaler) 1 puffs INH QAM [facility] Stop: 04/20/24 08:59 Last Admin: 03/24/24 08:02 Dose: 1 puffs Vitamin D (Cholecalciferol 25 Mcg (1000 Units) Tab) [facility]: 04/23/24 08:59 Last Admin: 03/24/24 08:00 Dose: 100 mcg
[2024-03-25] MEDS ORDERED: COUGH DROP (SUGAR FREE) LOZ 24 LOZ/1 BOX BUCCAL PRN (08:36)
[2024-03-25] MEDS: COUGH DROP (SUGAR FREE) LOZ 24 LOZ/1 BOX BUCCAL ONE (09:06)
[2024-03-25] MEDS: COUGH DROP (SUGAR FREE) LOZ 24 LOZ/1 BOX BUCCAL STA (09:06)
[2024-03-25] MEDS: FERROUS SULFATE 325 MG TAB PO SCH (09:07)
[2024-03-25] MEDS: ASPIRIN 81 MG ECTAB PO SCH (09:07)
[2024-03-25] MEDS: FLUTICASONE PROPIONATE NA SPR 16 GM BTL SCH (09:31)
[2024-03-25 10:30] LABS: Adenovirus PCR Not Detected (NotDetected); Bordetella parapertussis PCR Not Detected (NotDetected); Bordetella pertussis PCR Not Detected (NotDetected); Chlamydia pneumoniae PCR Not Detected (NotDetected); Coronavirus 229E PCR Not Detected (NotDetected); Coronavirus CoV-2 (COVID19)PCR Not Detected (NotDetected); Coronavirus HKU1 PCR Not Detected (NotDetected); Coronavirus NL63 PCR Not Detected (NotDetected); Coronavirus OC43PCR Not Detected (NotDetected); Human Metapneumovirus PCR Not Detected (NotDetected); Influenza A PCR Not Detected (NotDetected); Influenza B PCR Not Detected (NotDetected); Mycoplasma pneumoniae PCR Not Detected (NotDetected); Parainfluenza Virus 1 PCR Not Detected (NotDetected); Parainfluenza Virus 2 PCR Not Detected (NotDetected); Parainfluenza Virus 3 PCR Not Detected (NotDetected); Parainfluenza Virus 4 PCR Not Detected (NotDetected); Respiratory Syncytial VirusPCR Not Detected (NotDetected); Rhinovirus/Enterovirus PCR Not Detected (NotDetected)
[2024-03-25] MEDS: ALBUT/IPRATROP 3MG/0.5MG NEB 3 ML VIAL NEB SCH (11:03)
--- NOTE | 2024-03-25 13:21 | Discharge Summary ---
Date of Service March 25, 2024 Admission HPI Per Admitting Provider History obtained from patient, family, and records. Medical history significant for chronic diastolic heart failure (EF 60 to 65%, TTE 2022), CAD/PVD as per records, SSS status post PPM, A-fib on Eliquis, history of Watchman device, MR status post mitral valve clip, valvular heart disease (moderate MS, mild TR), hypertension, hyperlipidemia, COPD, RADHA/nocturnal hypoxemia as per records, pulmonary hypertension, DM 2 on oral medications, hypothyroidism, CRI (baseline creatinine 1.5 as per records), chronic anemia (baseline hemoglobin 10-11), GERD, endometrial cancer status post surgery, mood disorder, back pain secondary to recent T12 compression fracture currently on fentanyl patch, chronic diarrhea, colonic angiodysplasia as per records, past tobacco abuse. Last confinement September 2023 for generalized weakness and sigmoid diverticulitis. Patient seen at the ER 2 weeks ago for back pain secondary to fall a week prior. T12 compression fracture on imaging. Patient refused admission recommendation. Back pain not controlled by home oxycodone. Transient constipation symptoms from possible blockage on outpatient imaging as per daughter now back to worsening diarrhea. Patient eventually started on fentanyl patch last week on follow-up visit at PCPs office. Uncontrolled back pain at home. Patient denies headache, chest pain, SOB. Worsening watery diarrhea symptoms. 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 Admission Exam Per Admitting Provider GENERAL: Slightly uncomfortable, slightly hard of hearing, no respiratory distress SKIN: Pallor , warm HEENT: Pale palpebral conjunctivae, no ptosis, dry buccal mucosa NECK : Supple, no tenderness CHEST : Decreased breath sounds, no tenderness HEART : RRR, no murmur ABDOMEN: Some distention, nontender BACK : Mid back tenderness, negative straight leg raise test EXTREMITIES : Bilateral LE swelling without tenderness, no other conspicuous deformities noted NEUROLOGIC : Coherent, no facial asymmetry, slightly hard of hearing, gait and stance not assessed Principal Diagnosis Thoracic compression fracture Chronic diarrhea, presumed C. difficle Discharge Exam General: awake, alert, no apparent distress, white female Head: Normocephalic, atraumatic ENT: PERRL, EOMI, no pharyngeal exudate, mucous membranes moist Chest: Improved aeration whit a cough which is nonproductive, no wheeze, on room air, no adventitious breath sounds Cardiac: Regular rate and rhythm, no murmur, no JVD, normal peripheral pulses, good capillary refill Abdominal: NABS x 4 quadrants, soft, nondistended, nontender to palpation, no rebound or guarding Extremities: Normal inspection, no peripheral edema or erythema, calfs nontender to palpation Psych: Normal mood and affect Neuro: AAO x 3, strength intact bilaterally and rated 5/5, no motor deficits, speech is clear, no peripheral sensory deficits Discharge Data Allergies Allergy/AdvReac Type Severity Reaction Status Date / Time Sulfa (Sulfonamide Allergy Severe Severe Verified 03/07/24 11:30 Antibiotics) rxn: rash and hives celecoxib Allergy Intermediate Rash/Hives/ Verified 03/07/24 11:30 Itching. cephalexin Allergy Intermediate Rash/Hives/ Verified 03/07/24 11:30 Itching. furosemide Allergy Intermediate Rash/Hives/ Verified 03/07/24 11:30 Itching. gabapentin Allergy Intermediate Rash/Hives/ Verified 03/07/24 11:30 Itching. pregabalin Allergy Intermediate Rash/Hives/ Verified 03/07/24 11:30 Itching. meclizine Allergy Unknown Unknown Verified 03/07/24 11:30 methylprednisolone Allergy Unknown Rash/Hives/ Verified 03/07/24 11:30 Itching. Penicillins Allergy Unknown Unknown. Verified 03/07/24 11:30 prednisone Allergy Unknown Rash/Hives/ Verified 03/07/24 11:30 Itching. vancomycin Allergy Unknown Jodi Verified 03/07/24 11:30 syn. . nickel Allergy Unknown Verified 03/07/24 11:30 dexamethasone AdvReac Intermediate Steroid Verified 03/07/24 11:30 psychosis. Consultations 03/21/24 06:32 ED Decision to Admit Stat 03/21/24 08:42 Consult Orthopedic Spine Surgery Routine Procedures Performed none Ordered Studies 03/21/24 01:13 CT abd pelvis IV con only Stat CT lumbar spine w con Stat Hospital Course (1) Thoracic compression fracture: (2) C. difficile diarrhea: (3) Cardiac pacemaker in situ: (4) CKD (chronic kidney disease): (5) CAD (coronary artery disease): (6) Presence of Watchman left atrial appendage closure device: (7) Chronic diastolic (congestive) heart failure: Plan Pt is an 83-year-old female with past medical history significant for type 2 diabetes, diabetic retinopathy, CKD stage III, hypercholesterolemia, obstructive sleep apnea, moderate persistent asthma, paroxysmal atrial fibrillation, s/p watchman's device, history of mitral valve clip implantation, sick sinus syndrome s/p pacemaker, pulmonary hypertension, peripheral vascular disease, chronic diastolic CHF, angiodysplasia of colon, aneurysm of left carotid artery, severe tricuspid regurgitation, CAD , GERD, Mnire's disease, iron deficiency anemia, depression, history of endometrial cancer , TIA who presented with concern for back pain. Lumbar spine CT noting t12 compression fracture. Ortho spine consulted, recommend TLSO brace when standing and walking, ambulate ad hawk, no lifting > 5lbs, pain control schedule APAP, continue lidocaine patch, fentanyl pain, encourage pt to increase usage of oxy IR to keep pain at more of a steady state. PT/OT recommended HH services based on pt status and also that she is the primary caregiver for with dementia. Pt had TIFFANY on CKD on admission which improved prior to discharge. Pericardial effusion was noted on CT abd/pelvis. Echocardiogram was done which showed no pericardial effusion s/p mitral valve clip, LA severely dilated, moderate mitral stenosis and was reassuring. Pt had no cardiac c omplaints and atrial flutter was seen on EKG. Diarrhea has been ongoing x 11 months. Here c. diff testing was negative, however due to symptoms, she was started on dificid and noted improvement. Pt will continue this until 03/31/24. Follow up is already arranged with GI for EGD/Cscope on 05/21, as well as PT/OT and [facility] with in the next week. Pt noted to have iron level which was low so was started on oral replacement, will need repeat iron panel in 6-8 weeks. Pt was also taken OFF of Eliquis during this admission and started on baby aspirin daily with hx of atrial flutter and hx of Watchman device. She was stable on day of discharge for Home with HH. Total Time Total Time Spent Total Time Spent (In Minutes): 37 Discharge Plan Discharge Items Patient Disposition: Home - Home Health Services Reason For Visit: pericardial effusion on ct, thoracic compression Discharge Diagnosis: T12 compression fracture Condition on Discharge: Good Activity: Resume your previous activity Activity Comment: Continue TLSO brace when standing and walking. Encourage you to walk Lifting: No more than 5 pounds Bathing: No limitations Weightbearing: Full weightbearing Non-emergency contact: Primary Care Provider Call non-emergency contact if: you have any medication questions, your pain is not controlled, your pain is worsening and your temperature is above 101 Follow-up/Referrals: Florentin Calvo DO [Primary Care Provider] - 03/30/24 11:20 am Diet: Heart Healthy Addtl Attending Provider Instructions: You were admitted to [facility] due to worsening back pain found to have a T12 compression fracture and diagnosed with The same. You were also treated for chronic diarrhea with a new medication called Dificid for presumed C. difficile however lab testing was negative while you were here in the hospital. During your stay here you were treated with supportive care and your symptoms improved. Medications: Continue taking you medications as prescribed 1. Dificid 200 mg twice daily, finish on 03/31. This medication if for diarrhea. 2. Continue oxycodone 5 mg every 6 hours as needed for pain in regards to your T12 compression fracture. 3. Baby aspirin 81 mg daily. Eliquis was stopped during this admission and you do NOT need to resume it. Orthopedics recommend TLSO brace when standing and walking, ambulate at liberty, no lifting any more than 5lbs, pain control Appointments: Follow up with: PCP within 1 week, Dr. Calvo on 03/30 at 11:00am. You should follow up with Gastroenterology for outpatient appointment regarding diarrhea and EGD/Colonoscopy on 05/21 as previously scheduled [facility] on 04/01 PT and OT has been arranged to see you through [facility]. A new script was provided prior to discharge. Pending Studies at Discharge: No Stand-Alone Forms: [employer], Smoking Cessation Medications and DC Order Prescriptions: New ferrous sulfate 325 mg (65 mg iron) Tablet,Delayed Release (Dr/Ec) 325 mg PO DAILY Qty: 30 0RF aspirin 81 mg Tablet,Delayed Release (Dr/Ec) 81 mg PO QAM Qty: 30 0RF oxycodone 5 mg Tablet 5 mg PO QID PRN (Reason: pain severe) Qty: 35 0RF Rx Instructions: Ongoing therapy Dificid 200 mg tablet 200 mg PO BID 7 Days Qty: 13 0RF Continued montelukast 10 mg tablet 10 mg PO PM ipratropium bromide 21 mcg (0.03 %) spray,non-aerosol 2 spray INTRANASAL DAILY PRN (Reason: rhinorrhea ) pantoprazole 40 mg tablet,delayed release (DR/EC) 40 mg PO BID Qty: 60 0RF atorvastatin 20 mg tablet 20 mg PO QAM cholecalciferol (vitamin D3) [Vitamin D3] 50 mcg (2,000 unit) Capsule 100 mcg PO QAM sertraline 100 mg Tablet 150 mg PO QAM levalbuterol tartrate [Xopenex HFA] 45 mcg/actuation Hfa Aerosol Inhaler 1 puff INHALATION Q4H PRN (Reason: Shortness Of Breath) cyanocobalamin (vitamin B-12) [Vitamin B-12] 100 mcg Tablet 100 mcg PO QAM torsemide 10 mg tablet 20 mg PO QAM Stiolto Respimat 2.5-2.5 mcg/actuation mist 2 puff INHALATION QAM folic acid 1 mg Tablet 1 mg PO QAM allopurinol 300 mg tablet 300 mg PO HS cetirizine 10 mg Tablet 10 mg PO QAM Qty: 30 0RF metoprolol succinate 25 mg Tablet Extended Release 24 Hr 25 mg PO BID Qty: 60 0RF levothyroxine 175 mcg tablet 175 mcg PO DAILY fentanyl 12 mcg/hr patch 72 hour 12 mcg transdermal Q3D diphenoxylate-atropine 2.5-0.025 mg tablet 1 tab PO BID PRN (Reason: Diarrhea) colestipol 1 gram Tablet 1 g PO BID Rx Instructions: Noon and at bedtime lidocaine [Lidoderm] 5 % adhesive patch,medicated 1 patch TOP DAILY PRN (Reason: pain) Qty: 15 0RF Rx Instructions: leave on most painful area for up to 12 hrs Discontinued Eliquis 2.5 mg tablet 2.5 mg PO AMHS oxycodone 5 mg tablet 2.5 mg PO UD PRN (Reason: pain) Rx Instructions: Q6-12H Discharge Orders: Discharge Order (Routine); Ordered 03/25/24 Ordered By: Vicenta Gandhi/Other Patient Handouts: Managing Type 2 Diabetes, Special Foot Care for Diabetes Admission Data Admit Date/Time: 03/21/24 06:23 Attending Provider: Roxanne Gibbs Admit Provider: Paul Toscano Primary Care Provider: Florentin Calvo Other Providers: Paul Toscano; Bahman Reese Other Interventions: Discharge Summary Assessment (RN) Last Done: 03/25/24 13:28 Supervising Physician Co-Signing Physician Notes I have seen and discussed the case with the collaborating advanced practitioner. I agree with the above PN I have reviewed and confirmed the patients medical history, the findings on physical examination, and the patients diagnosis and treatment plan with Treasure FULTON and agree with the information documented In short, patient presented with intractable back pain which improved and stabilized with TLSO and pain management. Discussed rehab, however, patient declined given prior experience and has son/daughter support. GENERAL APPEARANCE: AxOx4 pleasant elderly woman HEENT: NC, AT. MMM. EOMI, clear conjunctiva, oropharynx clear. NECK: Supple without lymphadenopathy. No stiffness or restricted ROM. HEART: Normal rate and regular rhythm, normal S1/S1, no m/r/g LUNGS: CTAB, moving air well. No crackles or wheezes are heard. ABDOMEN: Soft, nontender, nondistended with good bowel sounds heard. EXTREMITIES: Without cyanosis, clubbing or edema. NEUROLOGICAL: Grossly nonfocal. Alert and oriented, moving all 4 extremities. CN not formally tested but appear grossly intact Skin: Warm and dry without any rash. : Dispo home with home health I have reviewed the advanced practitioner's documentation, and I agree with, and take responsibility for the plan of care
== END 2024-03-25 14:19 | disposition home health service (06) | DRG 552 ==
LOC: ED 00:39 → SUATTDRO 06:23 → 2S 06:23

== ENCOUNTER 2024-04-12 19:38 | Inpatient (IN) ==
[2024-04-12] MEDS: ACETAMINOPHEN 1,000 MG/100 ML VIAL IV STA (20:39)
[2024-04-12 20:44] LABS: Basophils # (auto) 0.03 K/uL (0.00-0.20); Basophils % (auto) 0.3 %; Eosinophils # (auto) 0.14 K/uL (0.00-0.50); Eosinophils % (auto) 1.3 %; Hematocrit (blood only) 32.9 % (37.0-47.0); Hemoglobin 10.5 g/dl (12.0-16.0); Immature Granulocytes # (auto) 0.05 K/uL (0.01-0.20); Immature Granulocytes % (auto) 0.5 %; Lymphocytes # (auto) 0.66 K/uL (1.20-3.40); Lymphocytes % (auto) 6.3 %; Mean Corpuscular Hemoglobin 29.8 pg (25.0-34.0); Mean Corpuscular Hgb Conc 31.9 g/dL (32.0-36.0); Mean Corpuscular Volume 93.5 fL (80.0-100.0); Mean Platelet Volume 10.8 fL (9.4-12.4); Monocytes # (auto) 1.15 K/uL (0.11-0.59); Neutrophils # (auto) 8.38 K/uL (1.40-6.50); Neutrophils % (auto) 80.6 %; Platelet Count 172 K/uL (130-400); RDW Standard Deviation 57.3 fL (36.4-46.3); Red Blood Count 3.52 M/uL (4.20-5.40); White Blood Count 10.41 K/ul (4.8-10.8)
[2024-04-12 21:00] LABS: Albumin Globulin Ratio 1.4 (0.9-2); Albumin Level 3.9 gm/dl (3.4-5.0); BUN Creatinine Ratio 26.1 (10-20); Bilirubin,Total 0.5 mg/dl (0.2-1.0); Calcium 9.3 mg/dl (8.6-10.3); Creatinine Clr Calc Pharmacy 28.5 ml/min; Est GFR (African American) 36.1 ml/min; Est GFR (Non-African American) 31.1 ml/min; Globulin 2.8 gm/dl (2.5-4.0); Magnesium 1.8 mg/dl (1.7-2.4); Potassium 4.2 mmol/L (3.5-5.1); Total Protein 6.7 gm/dl (6.0-8.3)
[2024-04-12] MEDS: SODIUM CHLORIDE 0.9% 1,000 ML IV ONE (21:00)
--- NOTE | 2024-04-12 21:02 | Emergency Department Note ---
Impression & Plan Generalized weakness, Non-ST elevation TX (NSTEMI), COVID-19 ED Provider Note HISTORY OF PRESENT ILLNESS: Patient is an 83-year-old female presenting with generalized weakness. Patient was reportedly lethargic and having weakness yesterday and her family tested her for COVID-19 and she tested positive. Reportedly was feeling so weak after getting up to go to the bathroom that she had to lower herself to the ground. Denies striking her head or loss of consciousness. Denies any chest pain or significant shortness of breath. She was diagnosed with a T12 fracture 2 weeks ago and started on oxycodone and a fentanyl patch. No recent changes to that medication. Denies any abdominal pain, nausea or vomiting. She wears 2 L of oxygen at nighttime at home. Family member at bedside reports the patient was prescribed lagevrio (molnupiravir) today for her COVID-19, but they have not initiated the medication yet. ROS: as above PHYSICAL EXAM: Constitutional: Patient appears in no acute distress. HENT: Head: Normocephalic and atraumatic. Eyes: EOMI, PERRL Mouth/Throat: Mucous membranes moist. Neck: Trachea midline. Neck supple. Cardiovascular: Tachycardic with irregularly irregular rhythm. No murmurs, rubs or gallops. Intact distal pulses. Pulmonary/Chest: No respiratory distress. Breath sounds clear and equal bilaterally. No wheezes or rales. Abdominal: Abdomen soft, no tenderness, rebound or guarding. Musculoskeletal: No edema, tenderness or deformity noted. Skin: Warm and dry. No rash, erythema, pallor or cyanosis Psychiatric: Appropriate mood and affect for situation. Neurological: Alert and keenly responsive. CN II-XII grossly intact, moving all extremities equally and fully. MDM: - Vitals signs showed tachycardia and fever - History obtained via patient. History as above. - Chronic conditions affecting care: CKD; TIA; CAD; Afib - Differential diagnoses include, but are not limited to: CVA; intracranial hemorrhage; ACS; pneumonia; viral infection; electrolyte abnormality; dysrhythmia - Order placed for continuous cardiac monitoring. At this time, monitor showed rate of 78 bpm with irregular rhythm, per my interpretation. - External medical records reviewed. Discharge summary dated 03/25/2024 was reviewed. Patient was admitted that time for thoracic compression fracture and chronic diarrhea. - EKG interpreted by myself showed atrial fibrillation. Rate tachycardic at 114 bpm. QT 11/24/1949. No acute ischemic changes. - Laboratory workup interpreted by myself showed normal WBC; stable electrolytes; baseline CKD (Cr 1.53); elevated troponin (28.3); elevated AST (77); normal lipase; chronic anemia - CXR negative for pneumonia, per my interpretation - Patient placed on 2L NC, given that her saturations were 90 to 92% on room air. - Repeat troponin trending slightly upwards at 29.7. - Unclear etiology for patient's weakness at this time. May be secondary to her COVID-19 infection. NSTEMI likely type II in nature secondary to the COVID-19 infection. - Patient given 1L NS and 1g IV tylenol in ER. Heart rate improved with hydration improvement in fever. - Discussed results with patient and her family at bedside. Given her slightly up-trending troponin and weakness complaint in the setting of her COVID-19 infection, will admit for further management. - Discussion was had with telephonic case manager about patient's case and need for admission - Hospitalist, Dr. Parker, consulted for admission - [facility] ASSESSMENT AND PLAN: Diagnosis: COVID-19 infection; generalized weakness; NSTEMI Plan: Admit Past Med/Surg History Problem List (Updated 04/07/24 @ 00:07 by Background Daemon) COVID-19 (Acute) Non-ST elevation TX (NSTEMI) (Acute) Generalized weakness (Acute) Thoracic compression fracture Diarrhea Elevated troponin (Acute) C. difficile diarrhea (Acute) Adult failure to thrive (Acute) Generalized weakness (Acute) S/P mitral valve clip implantation Presence of Watchman left atrial appendage closure device CAD (coronary artery disease) Cardiac pacemaker in situ (Acute) CKD (chronic kidney disease) (Acute) Anemia (Acute) TIA (transient ischemic attack) (Acute) Depression Hypothyroidism RADHA (obstructive sleep apnea) SSS (sick sinus syndrome) Chronic diastolic (congestive) heart failure CKD (chronic kidney disease), stage III TIA (transient ischemic attack) Anemia (Acute) Leukocytosis (Acute) Chronic anticoagulation (Acute) Acute renal insufficiency Severe mitral insufficiency Acute on chronic diastolic heart failure Paroxysmal atrial fibrillation Stroke-like symptoms (Acute) Acute on chronic anemia COVID-19 (Acute) COVID-19 (Acute) History of tobacco abuse Asthma, moderate persistent (Chronic) Meniere disease (Chronic) Atrial fibrillation and flutter (Chronic) History of laminectomy (Chronic) H/O sinus surgery (Chronic) Hx of neck surgery (Chronic) History of repair of left rotator cuff (Chronic) Medical History Angio-edema Nausea Leukocytosis Near syncope Hypotension Dehydration TIFFANY (acute kidney injury) Near syncope Elevated brain natriuretic peptide (BNP) level Pneumonia Atrial flutter Carotid artery aneurysm Prolonged QT interval Atrial fibrillation with RVR DM type 2 (diabetes mellitus, type 2) Encounter for pre-operative examination Cholelithiasis Cholecystitis Chest pain at rest Pulmonary emphysema Osteoarthritis of right knee HTN (hypertension) Surgical History History of hysterectomy History of cholecystectomy Family History Father Diabetes Social History Smoking Status: Never smoker Tobacco Type: Cigarettes packs per day: 1.5; Cigarettes Per Day: 30; Second Hand Exposure: No; Do You Dip or Chew Tobacco: No; Hx Alcohol Use: No Hx Substance Use: No Preferred Language: Gambian Communication Ability: Effective Taxation Inspector Required: No Beliefs That Will Affect Care: None marital status: Current Living Situation: Spouse Feels Safe at Home: Yes Assistive Devices: Hearing Aid - Bilateral, Oxygen - at Night and Walker Allergies Allergies Allergy/AdvReac Type Severity Reaction Status Date / Time Sulfa (Sulfonamide Allergy Severe Severe Verified 04/13/24 00:16 Antibiotics) rxn: rash and hives celecoxib Allergy Intermediate Rash/Hives/ Verified 04/13/24 00:16 Itching. cephalexin Allergy Intermediate Rash/Hives/ Verified 04/13/24 00:16 Itching. furosemide Allergy Intermediate Rash/Hives/ Verified 04/13/24 00:16 Itching. gabapentin Allergy Intermediate Rash/Hives/ Verified 04/13/24 00:16 Itching. pregabalin Allergy Intermediate Rash/Hives/ Verified 04/13/24 00:16 Itching. meclizine Allergy Unknown Unknown Verified 04/13/24 00:16 methylprednisolone Allergy Unknown Rash/Hives/ Verified 04/13/24 00:16 Itching. Penicillins Allergy Unknown Unknown. Verified 04/13/24 00:16 prednisone Allergy Unknown Rash/Hives/ Verified 04/13/24 00:16 Itching. vancomycin Allergy Unknown Jodi Verified 04/13/24 00:16 syn. . nickel Allergy Unknown Verified 04/13/24 00:16 dexamethasone AdvReac Intermediate Steroid Verified 04/13/24 00:16 psychosis. Home Meds Home Medications Medication Instructions Recorded Confirmed montelukast 10 mg tablet 10 mg PO PM 04/08/19 04/13/24 atorvastatin 20 mg tablet 20 mg PO QAM 11/26/21 04/13/24 cholecalciferol (vitamin D3) 50 100 mcg PO QAM 11/26/21 04/13/24 mcg (2,000 unit) capsule (Vitamin D3) levalbuterol tartrate 45 1 puff inhalation Q4H PRN 08/07/22 04/13/24 mcg/actuation aerosol inhaler Shortness Of Breath (Xopenex HFA) sertraline 100 mg tablet 150 mg PO QAM 08/07/22 04/13/24 tiotropium 2.5 mcg-olodaterol 2.5 2 puff inhalation QAM 11/07/22 04/13/24 mcg/actuation mist for inhalation (Stiolto Respimat) torsemide 10 mg tablet 20 mg PO QAM 11/07/22 04/13/24 ipratropium bromide 21 mcg (0.03 2 spray intranasal DAILY PRN 12/06/22 04/13/24 %) nasal spray rhinorrhea allopurinol 300 mg tablet 300 mg PO HS 08/14/23 04/13/24 diphenoxylate-atropine 2.5 1 tab PO BID PRN Diarrhea 03/07/24 04/13/24 mg-0.025 mg tablet levothyroxine 175 mcg tablet 175 mcg PO DAILY 03/21/24 04/13/24 fentanyl 12 mcg/hr transdermal 12 mcg transdermal Q3D 03/23/24 04/13/24 patch acetaminophen 500 mg tablet 1,000 mg PO Q6H PRN Pain 04/13/24 04/13/24 (Tylenol Extra Strength) Previous Rx's Medication Instructions Recorded pantoprazole 40 mg tablet,delayed 40 mg PO BID #60 tabs 12/09/22 release metoprolol succinate 25 mg 25 mg PO BID #60 tabs 10/22/23 tablet,extended release 24 hr lidocaine 5 % topical patch 1 patch topical DAILY PRN pain #15 03/07/24 (Lidoderm) ea aspirin 81 mg tablet,delayed 81 mg PO QAM #30 tabs 03/25/24 release oxycodone 5 mg tablet 5 mg PO QID PRN pain severe #35 03/25/24 tabs Results & Data (ED) Vital Signs Vital Signs - 24 hr 04/12/24 19:40 04/12/24 19:46 04/12/24 20:23 Temperature 37.6 C H Temperature Source Oral Pulse Rate 120 H 115 H Pulse Rate [Apical] Respiratory Rate 20 Respiratory Effort / Characteristics Non-Labored Respiratory Depth Normal Respiratory Pattern Regular Blood Pressure 117/70 Blood Pressure [Left Arm] Blood Pressure Mean 85 Blood Pressure Mean [Left Arm] Pulse Oximetry 98 92 Oxygen Delivery Method Room Air Room Air Oxygen Flow Rate Sepsis Recent Fever Within 48 Hours No Sepsis New/Unexplained Change in Mental Status N/A Sepsis Action Taken by Nursing No Action Required Oxygen Flow Rate - Titration 2 Pulse Oximetry Post Tiitration 97 04/12/24 20:23 04/12/24 20:23 04/12/24 22:00 Temperature Temperature Source Pulse Rate Pulse Rate [Apical] 99 H 86 Respiratory Rate 18 18 Respiratory Effort / Characteristics Non-Labored Non-Labored Respiratory Depth Normal Normal Respiratory Pattern Regular Regular Blood Pressure Blood Pressure [Left Arm] 90/77 L 112/59 L Blood Pressure Mean Blood Pressure Mean [Left Arm] 81 76 Pulse Oximetry 97 97 97 Oxygen Delivery Method Nasal Cannula Nasal Cannula Nasal Cannula Oxygen Flow Rate 2 2 2 Sepsis Recent Fever Within 48 Hours Sepsis New/Unexplained Change in Mental Status Sepsis Action Taken by Nursing Oxygen Flow Rate - Titration Pulse Oximetry Post Tiitration 04/12/24 23:40 Temperature Temperature Source Pulse Rate 78 Pulse Rate [Apical] Respiratory Rate Respiratory Effort / Characteristics Respiratory Depth Respiratory Pattern Blood Pressure Blood Pressure [Left Arm] Blood Pressure Mean Blood Pressure Mean [Left Arm] Pulse Oximetry Oxygen Delivery Method Oxygen Flow Rate Sepsis Recent Fever Within 48 Hours Sepsis New/Unexplained Change in Mental Status Sepsis Action Taken by Nursing Oxygen Flow Rate - Titration Pulse Oximetry Post Tiitration Laboratory Data 04/12/24 20:27 04/12/24 20:27 Lab Results 04/12/24 04/12/24 Range/Units 20:27 22:04 WBC 10.41 (4.8-10.8) K/ul RBC 3.52 L (4.20-5.40) M/uL Hgb 10.5 L (12.0-16.0) g/dl Hct 32.9 L (37.0-47.0) % MCV 93.5 (80.0-100.0) fL MCH 29.8 (25.0-34.0) pg MCHC 31.9 L (32.0-36.0) g/dL RDW Std Deviation 57.3 H (36.4-46.3) fL RDW Coeff of Francisco Javier 17.0 H (11.5-14.5) % Plt Count 172 (130-400) K/uL MPV 10.8 (9.4-12.4) fL Immature Gran % (Auto) 0.5 % Neut % (Auto) 80.6 % Lymph % (Auto) 6.3 % [place] % (Auto) 11.0 % Eos % (Auto) 1.3 % Baso % (Auto) 0.3 % Neut # (Auto) 8.38 H (1.40-6.50) K/uL Lymph # (Auto) 0.66 L (1.20-3.40) K/uL [place] # (Auto) 1.15 H (0.11-0.59) K/uL Eos # (Auto) 0.14 (0.00-0.50) K/uL Baso # (Auto) 0.03 (0.00-0.20) K/uL Immature Gran # (Auto) 0.05 (0.01-0.20) K/uL Sodium 133 L (136-145) mmol/L Potassium 4.2 (3.5-5.1) mmol/L Chloride 97 L (98-107) mmol/L Carbon Dioxide 26 (21-32) mmol/L Anion Gap 10 (3-11) BUN 40 H (6-23) mg/dl Creatinine 1.53 H (0.6-1.2) mg/dl Est Cr Clr Drug Dosing 28.5 ml/min Est GFR ( Amer) 36.1 ml/min Est GFR (Non-Af Amer) 31.1 ml/min BUN/Creatinine Ratio 26.1 H (10-20) Glucose 137 H (70-99(Fasting)) mg/dl Calcium 9.3 (8.6-10.3) mg/dl Magnesium 1.8 (1.7-2.4) mg/dl Total Bilirubin 0.5 (0.2-1.0) mg/dl AST 77 H (13-39) U/L ALT 25 (7-52) U/L Alkaline Phosphatase 184 H (34-104) U/L Troponin I High Sens 28.3 H 29.7 H (0-14) pg/ml Total Protein 6.7 (6.0-8.3) gm/dl Albumin 3.9 (3.4-5.0) gm/dl Globulin 2.8 (2.5-4.0) gm/dl Albumin/Globulin Ratio 1.4 (0.9-2) Lipase 27 (11-82) U/L Administered Medications Discontinued Medications Acetaminophen (Ofirmev) 1,000 mg in 100 mls @ 400 mls/hr IV NOW STA Stop: 04/12/24 20:32 Last Infusion: 04/12/24 21:17 Dose: Infused Documented By: Admin: 04/12/24 20:39 Dose: 400 mls/hr Documented By: MARILYN Sodium Chloride (Nss) 1,000 mls @ 999 mls/hr IV .Q1H1M ONE Stop: 04/12/24 21:55 Last Infusion: 04/12/24 22:05 Dose: Infused Documented By: Admin: 04/12/24 21:00 Dose: 999 mls/hr Documented By: MARILYN Discharge Plan Visit Data Chief Complaint: Weakness Stated Complaint: WEAKNESS, COVID POS AT HOME ED Provider: Chelsie Alonso Discharge Problem: Generalized weakness, Non-ST elevation [place] (NSTEMI), COVID-19 Forms Stand Alone Forms: My Mail'Inside Prescriptions Prescriptions: No Action montelukast 10 mg tablet 10 mg PO PM ipratropium bromide 21 mcg (0.03 %) spray,non-aerosol 2 spray INTRANASAL DAILY PRN (Reason: rhinorrhea ) pantoprazole 40 mg tablet,delayed release (DR/EC) 40 mg PO BID Qty: 60 0RF atorvastatin 20 mg tablet 20 mg PO QAM cholecalciferol (vitamin D3) [Vitamin D3] 50 mcg (2,000 unit) Capsule 100 mcg PO QAM sertraline 100 mg Tablet 150 mg PO QAM levalbuterol tartrate [Xopenex HFA] 45 mcg/actuation Hfa Aerosol Inhaler 1 puff INHALATION Q4H PRN (Reason: Shortness Of Breath) torsemide 10 mg tablet 20 mg PO QAM Stiolto Respimat 2.5-2.5 mcg/actuation mist 2 puff INHALATION QAM allopurinol 300 mg tablet 300 mg PO HS metoprolol succinate 25 mg Tablet Extended Release 24 Hr 25 mg PO BID Qty: 60 0RF levothyroxine 175 mcg tablet 175 mcg PO DAILY fentanyl 12 mcg/hr patch 72 hour 12 mcg transdermal Q3D Rx Instructions: needs changed today aspirin 81 mg Tablet,Delayed Release (Dr/Ec) 81 mg PO QAM Qty: 30 0RF oxycodone 5 mg Tablet 5 mg PO QID PRN (Reason: pain severe) Qty: 35 0RF Rx Instructions: Ongoing therapy acetaminophen [Tylenol Extra Strength] 500 mg Tablet 1,000 mg PO Q6H PRN (Reason: Pain) diphenoxylate-atropine 2.5-0.025 mg tablet 1 tab PO BID PRN (Reason: Diarrhea) lidocaine [Lidoderm] 5 % adhesive patch,medicated 1 patch TOP DAILY PRN (Reason: pain) Qty: 15 0RF Rx Instructions: leave on most painful area for up to 12 hrs Referrals Referrals: Florentin Calvo DO [Primary Care Provider] -
[2024-04-12 21:07] LABS: Troponin I High Sensitivity 28.3 pg/ml (0-14)
[2024-04-13] MEDS: fentaNYL 12 MCG/HR TDSY TD SCH (01:45)
--- OUTSIDE RECORDS SUMMARY | 2024-04-13 02:10 | External Medical Summary | Summary of Care ---
Author Name Unknown Organization [facility] Address [address] [place] [address] Phone [phone] Care Team Providers Care Sports Fitness And Wellness Director Name Role Phone Florentin Calvo DO Primary Care Provider [phone] Encounter Details Date Type Department Care Team (Late st Contact Info) Description 04/11/2024 Result Scan Unspecified Department Carmenza Swann DO [address] [place] [address] <No scans attached> Allergies Active Allergy Reactions [...] as of this encounter (statuses as of 04/11/2024) Medications Medication Sig Dispensed Refills Start Date End Date Status FRUCT w/Device KitIndications:Type 2 diabetes mellitus with hemoglobin [...] Oral Tablet (Lipitor)Indications :PVD (peripheral vascular disease) ([facility]),Type 2 diabetes mellitus with stage 3a chronic kidney disease and hypertension ([facility]) TAKE ONE TABLET BY MOUTH EVERY DAY DIRECTED 100 Tablet 3 03/31/2023 Active Ipratropium [place] 0.03 % Nasal Solution (Atrovent)Indication s:Chronic rhinitis Administer 2 Sprays into nostril in the morning and 2 Sprays before bedtime. 90 mL 3 04/01/2023 Active Allopurinol 300 MG Oral Tablet (Zyloprim) Take 1 Tablet by mouth at bedtime. 90 Tablet 3 05/16/2023 Active Tiotropium [place]-Olodaterol 2.5-2.5 MCG/ACT Inhalation Aerosol Solution (Stiolto Respimat) Inhale 2 Puffs by mouth in the morning. 12 g 3 05/23/2023 Active Montelukast Sodium 10 MG Oral Tablet (Singulair)Indicatio ns:Moderate persistent asthma without complication TAKE ONE TABLET BY MOUTH AT BEDTIME 100 Tablet 3 09/02/2023 5 Active Sertraline HCl 100 MG Oral Tablet (Zoloft) Take one and one-half Tablets by mouth in the morning. 150 Tablet 3 10/11/2023 Active Metoprolol Succinate ER 25 MG Oral Tablet Extended Release 24 Hour (toPROL XL)Indications:Parox ysmal atrial fibrillation (HCC) Take 1 Tablet by mouth in the morning and 1 Tablet before bedtime. 200 Tablet 3 10/24/2023 Active Acetaminophen 500 MG Oral Tablet (Tylenol) Take 2 Tablets by mouth every 6 hours as needed. Max 6 tablets per day (3000 mg) Active Pantoprazole Sodium 40 MG Oral Tablet Delayed Release (Protonix) Take 1 Tablet by mouth in the morning and 1 Tablet by mouth in the evening. 200 Tablet 1 01/22/2024 Active Torsemide 10 MG Oral Tablet (Demadex)Indications :Chronic diastolic CHF (congestive heart failure) ([facility]) Take 2 Tablets by mouth in the morning. 200 Tablet 3 02/24/2024 Active Polyethylene Glycol 3350 17 GM/SCOOP Oral Powder (MiraLax) Take 17 g by mouth in the morning and 17 g before bedtime. Dissolve one heaping tablespoon in 8 ounces of water or juice.. 03/12/2024 Active Naloxone HCl 4 MG/0.1ML NA LIQD FOR CAREGIVERIndications :Compression fracture of T12 vertebra, initial encounter ([facility]) Administer 1 spray into 1 nostril for suspected opioid overdose. Seek immediate medical attention. [email or web address] 1 Each 3 03/16/2024 5 Active fentaNYL 12 MCG/HR Transdermal Patch 72 HourIndications:Comp ression fracture of T12 vertebra, initial encounter ([facility]) Place 1 Patch over 72 hours topically on the skin every 3 days. For pain control. 10 Patch 03/16/2024 Active Levothyroxine Sodium 175 MCG Oral Tablet (Levoxyl)Indications :Acquired hypothyroidism Take 1 Tablet by mouth daily first thing in the morning. 90 Tablet 3 03/17/2024 Active Aspirin 81 MG Oral Tablet Delayed Release Take 1 Tablet by mouth in the morning. Active Senna-Docusate Sodium 8.6-50 MG Oral TabletIndications:Dr eastman-induced constipation Take 1 Tablet by mouth at bedtime. 100 Tablet 3 03/30/2024 Active Additional Information Patient not taking.Reported on 04/06/2024 oxyCODONE HCl 5 MG Oral Tablet (Oxy IR)Indications:Close d fracture of multiple ribs of left side with routine healing, subsequent encounter Take 1 Tablet by mouth every 6 hours as needed for Pain, Breakthrough. 03/30/2024 Active documented as of this encounter (statuses as of 04/11/2024) Active Problems Problem Noted Date Diagnosed Date Closed wedge compression fracture of T12 vertebr a 03/12/2024 Last Assessment & Plan: Increased oxy from 2.5mg to 5mg [id number] prn Ortho spine ref, ?kyphoplasty Constipation 03/12/2024 [...] mitral valve clip implantation 03/06/2023 Atherosclerosis of [place] 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 02/13/2023 [...] Obstructive sleep apnea of adult 09/09/2014 Overview: CONSTRUCTION PROJECT MGR Last Assessment & Plan: Now just [...] as of this encounter (statuses as of 04/11/2024) Resolved Problems Problem Noted Date Diagnosed Date [...] as of this encounter (statuses as of 04/11/2024) Immunizations Name Administration Dates Next Due COVID-19 mRNA, LNP-s, No Pre serve, 2-Dose Series (Moderna) 06/23/2021,10/25/2020,09/28/2020 COVID-19, LNP-s, No Preserve , Larry-sucrose, Ages 12+ (Pfizer) 04/09/2022 COVID-19, MRNA-LNP, 23-24, P F, 30 MCG/0.3 mL, 12 YRS AND ABOVE, IM (iconDial-Comirnat) 06/09/2023 Covid-19, Mrna, Lnp-s, Pf, B ivalent, [...] or do you have serious difficulty hearing? No-SPOKANE can hear w/ hearing aid 03/07/2023 Are [...] Care Team (Late st Contact Info) Description 04/12/2024 8:00 AM EDT Office Visit Hematology/Oncolog y [facility] [address] [place] [address] Nereyda Metz [facility] [address] 04/14/2024 10:50 AM EDT Office Visit Vascular Surgery, Health system [address] [facility] [place] [address] Aj Sahni MD [address] [place] [address] 04/20/2024 3:40 PM EDT Office Visit Family Practice [address] [facility] [address] [place] [address] Florentin Calvo, DO [address] [facility] [place] [address] 05/21/2024 12:46 PM EDT Hospital Encounter [facility], [facility] [address] Jana Vieira, DO [address] [facility] [place] [address] 05/21/2024 12:46 PM EDT - 05/21/2024 1:31 PM EDT Surgery OR [facility], [facility], [facility] [address] [facility] [place] [address] Jana Vieira, DO [address] [facility] [place] [address] COLONOSCOPY FLEXIBLE PROXIMAL DIAGNOSTIC 06/03/2024 2:15 PM EDT Office Visit Ophthalmology, Health system [address] [facility] [place] [address] Wilbur Benavides, DO [address] [place] [address] 07/01/2024 2:30 PM EST Office Visit Gastroenterology, Health system [address] [facility] [place] [address] Lacy Ronquillo CRNP [address] [facility] [place] [address] 08/09/2024 1:00 PM EST Nurse Only Ancillary [address] [facility] [address] [place] [address] College, Nurse Annual Wellness Visit [address] [place] [address] Scheduled Procedures Name Priority Associated Diagnoses Date/Ti me COLONOSCOPY FLEXIBLE PROXIMA L DIAGNOSTIC Diarrhea, unspecified type History of diverticulitis 05/21/2024 12:46 PM EDT ESOPHAGOGASTRODUODENOSCOPY ( EGD), FLEXIBLE, TRANSORAL, DIAGNOSTIC Diarrhea, unspecified type History of diverticulitis 05/21/2024 12:46 PM EDT Health Maintenance Due Date Last Done Comments Alpha-1 Antitrypsin 1958 Adult Wellness Visit 10/01/2023 10/01/2022, 04/27/20 21 Influenza Vaccine (FLU shot) (#1) 2024 05/13/2023, 05/15/2022, 05/22/2021, Additional history exists Diabetic Eye Exam 05/22/2024 05/22/2023, , 05/22/2023, Additional history exists HbA1c 06/08/2024 12/08/2023, 07/26, 02/21/2023, Additional history exists O2 ASSESSMENT COMPLETED IN PAST YEAR FOR COPD 07/31/2024 07/31/2023 CKD PHOS USE SMARTSET 94418 08/19/202407/26, 05/01/2022, 04/03/2022, Additional history exists Diabetic Foot Exam 09/15/2024 09/15/2023, 0 10/01/2022, 10/26/2021, Additional history exists Depression Monitoring 09/29/2024 09/29/2023 GFR 09/30/2024 03/30/2024, 02/23, 03/02/2024, Additional history exists Albumin/Creatinine Ratio 12/08/2024 024, 02/21/2023, 05/01/2022, Additional history exists TSH 03/15/2025 03/15/2024, 02/23, 12/08/2023, Additional history exists CKD HGB USE SMARTSET 33758 03/30/202503/30, 03/30/2024, 03/15/2024, Additional history exists DXA Scan 05/07/2025 05/07/2021, 12/24, 04/12/2013, Additional history exists Colonoscopy 03/11/2026 03/11/2022, 02/22, 11/10/2020, Additional history exists DTaP,Tdap,and Td Vaccines (3 - Td or Tdap) 12/29/2028 12/29/2018, 07/15/2009 Pneumococcal Vaccine: 65+ Years Completed 09/21/2015, 05/25/2012, 07/25/2007 Zoster Vaccines Completed 07/16/2019, 04/26, 03/25/2007 COVID-19 Vaccine Discontinued 06/09/2023, , 04/09/2022, Additional history exists HPV (Gardasil) Vaccine Aged Out No lo nger eligible based on patient's age to complete this topic Hepatitis B Vaccine Aged Out No longe r eligible based on patient's age to complete this topic MENINGOCOCCAL (MENACTRA/MENVEO) Aged Out No longer eligible based on patient's age to complete this topic documented as of this encounter Medical Devices Implanted Type Area Policewoman Device Identifier Shelf Expiration Date Model / Serial / Lot Cath Thermodilution 6fr - [id number] Implanted:Qty: 1 on 01/24/2023 by Wilbur Rivera MD at [facility] [place] [employer] [id number] 10/15/2024 [id number] / / [id number] Clip Delivery Sytem G4 Xt - [id number] Implanted:Qty: 1 on 03/10/2023 at [facility] [place] [employer] [id number] 04/15/2023 [id number] / / [id number] Clip Delivery Sytem G4 Xtw - [id number] Implanted:Qty: 1 on 03/10/2023 at [facility] [place] [employer] [id number] 12/06/2023 [id number] / / [id number] Mirtaclip G4 - [id number] Implanted:Qty: 1 on 03/10/2023 at [facility] [place] [employer] 11/19/2023 [id number] / / [id number] Device Watchman Flx 31mm - [id number] Implanted:Qty: 1 on 07/31/2023 by Wilbur Rivera MD at [facility] [place] [employer] : INTRV CARD [id number] 12/02/2025 [id number] documented as of this encounter Procedures Procedure Name Priority Date/Time Associated Diagnosis Comments CARDIOLOGY SCANNED RESULT 04/11/2024 documented in this encounter Results * CARDIOLOGY SCANNED RESULT (04/11/2024) 04/11/2024 Carmenza Swann DO OTHER documented in this encounter Advance Directives Documents on File Type Date Recorded 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 No * No Code Date Activated Date [...] Agents on File Name Relationship Healthcare Agent [facility] p Communication [facility] Adult Child Health Care Agen t (per Health Care Power of Billing And Accounting Staff Assistant document) Care Teams Sports Fitness And Wellness Director Relationship Specialty Start Date End Date Florentin Calvo DO [address] [place] [place] [address] PCP - General Internal Medicine 02/06/24 documented as of this encounter
--- OUTSIDE RECORDS SUMMARY | 2024-04-13 02:10 | External Medical Summary | Summary of Care ---
Author Name Unknown Organization [facility] Address [address] [place] [address] Phone [phone] Care Team Providers Care Hogshead Weigher Name Role Phone Florentin Calvo DO Primary Care Provider [phone] Reason for Visit * Reason Comments Follow Up Encounter Details Date Type Department Care Team (Latest Contact Info) Description 04/09/2024 10:00 AM EDT Office Visit Family Practice [address] [place] [address] [address] [place] [phone] Florentin Calvo DO [address] [place] [address] Closed wedge compression fracture of T12 vertebra with routine healing, subsequent encounter*; Type 2 diabetes mellitus with stage 3b chronic kidney disease, without long-term current use of insulin ([facility]); Paroxysmal atrial fibrillation ([facility]); Drug-induced constipation; Secondary hyperparathyroidism, renal ([facility]); Pulmonary hypertension ([facility]); 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 ([facility]); Chronic diastolic CHF (congestive heart failure) ([facility]); 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 claudication; Acquired hypothyroidism; Angiodysplasia of colon with hemorrhage; Type 2 diabetes mellitus with polyneuropathy ([facility]); Current moderate episode of major depressive disorder without prior episode ([facility]); Moderate persistent asthma without complication; Gastro-esophageal reflux disease without esophagitis; Pure hypercholesterolemia; Cardiac pacemaker in situ; S/P mitral valve clip implantation; Presence of Watchman left atrial appendage closure device Allergies Active Allergy Reactions Criticality Noted Date [...] as of this encounter (statuses as of 04/09/2024) Medications Medication Sig Dispensed Refills Start Date End Date Status OneTouch Verio w/Device KitIndications:Type 2 diabetes mellitus with hemoglobin A1c goal of less than 7.0% ([facility]) Use up to 1 times a day. [...] (Lipitor)Indications :PVD (peripheral vascular disease) ([facility]),Type 2 diabetes mellitus with stage 3a chronic kidney disease and hypertension ([facility]) TAKE ONE TABLET BY MOUTH EVERY DAY DIRECTED 100 Tablet 3 03/31/2023 Active Ipratropium [place] 0.03 % Nasal Solution (Atrovent)Indication s:Chronic rhinitis Administer 2 Sprays into nostril in the morning and 2 Sprays before bedtime. 90 mL 3 04/01/2023 Active Allopurinol 300 MG Oral Tablet (Zyloprim) Take 1 Tablet by mouth at bedtime. 90 Tablet 3 05/16/2023 Active Tiotropium [place]-Olodaterol 2.5-2.5 MCG/ACT Inhalation Aerosol Solution (Stiolto Respimat) Inhale 2 Puffs by mouth in the morning. 12 g 3 05/23/2023 Active Montelukast Sodium 10 MG Oral Tablet (Singulair)Indicatio ns:Moderate persistent asthma without complication TAKE ONE TABLET BY MOUTH AT BEDTIME 100 Tablet 3 09/02/2023 Active Sertraline HCl 100 MG Oral Tablet (Zoloft) Take one and one-half Tablets by mouth in the morning. 150 Tablet 3 10/11/2023 Active Metoprolol Succinate ER 25 MG Oral Tablet Extended Release 24 Hour (toPROL XL)Indications:Parox ysmal atrial fibrillation ([facility]) Take 1 Tablet by mouth in the [...] (Demadex)Indications :Chronic diastolic CHF (congestive heart failure) ([facility]) Take 2 Tablets by mouth in the morning. 200 Tablet 3 02/24/2024 Active Polyethylene Glycol 3350 17 GM/SCOOP Oral Powder (MiraLax) Take 17 g by mouth in the morning and 17 g before bedtime. Dissolve one heaping tablespoon in 8 ounces of water or juice.. 03/12/2024 Active Naloxone HCl 4 MG/0.1ML NA LIQD FOR CAREGIVERIndications :Compression fracture of T12 vertebra, initial encounter ([facility]) Administer 1 spray into 1 nostril for suspected opioid overdose. Seek immediate medical attention. [email or web address]://[email or web address]/watch?v=[email or web address] 1 Each 3 03/16/2024 Active fentaNYL 12 MCG/HR Transdermal Patch 72 HourIndications:Comp ression fracture of T12 vertebra, initial encounter ([facility]) Place 1 Patch over 72 hours topically [...] Active Senna-Docusate Sodium 8.6-50 MG Oral TabletIndications:Dr ug-induced constipation Take 1 Tablet by mouth at [...] as of this encounter (statuses as of 04/09/2024) Active Problems Problem Noted Date Diagnosed Date Closed wedge compression fracture of T12 vertebr a 03/12/2024 Last Assessment & Plan: Increased oxy from 2.5mg to 5mg [id number] prn Ortho spine ref, ?kyphoplasty Constipation 03/12/2024 [...] mitral valve clip implantation 03/06/2023 Atherosclerosis of upper sioux 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 [...] Obstructive sleep apnea of adult 09/09/2014 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 Last Assessment & Plan: Now just [...] as of this encounter (statuses as of 04/09/2024) Resolved Problems Problem Noted Date Diagnosed Date [...] as of this encounter (statuses as of 04/09/2024) Immunizations Name Administration Dates Next Due COVID-19 mRNA, LNP-s, No Pre serve, 2-Dose Series (Moderna) 06/23/2021,10/25/2020,09/28/2020 COVID-19, LNP-s, No Preserve , Larry-sucrose, Ages 12+ (Pfizer) 04/09/2022 COVID-19, MRNA-LNP, 23-24, P F, 30 MCG/0.3 mL, 12 YRS AND ABOVE, IM (Berg-Comirnat) 06/09/2023 Covid-19, Mrna, Lnp-s, Pf, B ivalent, 30 Mcg, IM, 12 yrs and above (Phagenesis) 09/10/2022 HEP A - Hepatitis A (Adult [...] Reading Time Taken Comments Blood Pressure 116/62 04/09/2024 9:59 AM EDT Pulse 84 04/09/2024 9:59 AM EDT Temperature 35.3 C (95.6 F) 04/09/2024 9:59 AM ED T Respiratory Rate 16 04/09/2024 9:59 AM EDT Oxygen Saturation 98% 04/09/2024 9:59 AM EDT Inhaled Oxygen Concentration - - Weight 71.9 kg (158 lb 9.6 oz) 04/09/2024 9:59 A M EDT Height 165.1 cm (5' 5") 04/09/2024 9:59 AM EDT Body Mass Index 26.39 04/09/2024 9:59 AM EDT documented in this encounter Functional Status Functional Status Response Date of Assess ment Are you deaf or do you have serious difficulty hearing? No-[facility] can hear w/ hearing aid 03/07/2023 Are [...] encounter Progress Notes * Florentin Calvo, - 04/09/2024 10:32 AM EDT SUBJECTIVE: Inga Barakat is a 83 year old female. Chief Complaint Patient presents with Follow Up HPI: Patient is an 83 year old female with a history of Atrial Fibrillation, Pacemaker Implant, Severe Mitral Regurgitaion repaired with mitral valve clip, Watchman Atrial Appendage Closure Devics placed 07/31/2023, Severe Tricuspid Valve Regurgitation, Pulmonary HTN, CKD stage III, Lumbar Spinal Fusion,Asthma, TIA, Essential Tremor, Adenocarcinoma of the uterus treated with Hysterectomy, iron Deficiency Anemia due to chronic GI blood loss, and Chronic Diastolic CHF that is seen for follow up.Back pain from T -12 compression fracture is improving slowly. She is able to ambulate with a walker. SHe is taking Oxycodone before bed and sleeps through the night. She no loner requires daytime Oxycodone. She continues with home PT. DIarrhea has resolved. Constipation is present. Chronic shortness of breath is unchanged. No chest pain is present. Weight is stable and appetite has improved. 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 60 Capsule 5 Levalbuterol Tartrate 45 MCG/ACT Inhalation Aerosol (Xopenex HFA) Inhale by mouth 1 Puff every 4 hours as needed for Wheezing. 15 g 12 Atorvastatin Calcium 20 MG Oral Tablet (Lipitor) TAKE ONE TABLET BY MOUTH EVERY DAY DIRECTED 100Tablet 3 Ipratropium [place] 0.03 % Nasal Solution (Atrovent) Administer 2 Sprays into nostril in the morning and 2 Sprays before bedtime. 90 mL 3 Allopurinol 300 MG Oral Tablet (Zyloprim) Take 1 Tablet by mouth at bedtime. 90 Tablet 3 Tiotropium [place]-Olodaterol 2.5-2.5 MCG/ACT Inhalation Aerosol Solution (Stiolto Respimat) Inhale2 Puffs by mouth in the morning. 12 g 3 Montelukast Sodium 10 MG Oral Tablet (Singulair) TAKE ONE TABLET BY MOUTH AT BEDTIME 100 Tablet 3 Sertraline HCl 100 MG Oral Tablet (Zoloft) Take one and one-half Tablets by mouth in the morning. 150 Tablet 3 Metoprolol Succinate ER 25 MG [...] mouth in the evening. 200 Tablet 1 Torsemide 10 MG Oral Tablet (Demadex) Take 2 Tablets by mouth in the morning. 200 Tablet 3 Polyethylene Glycol 3350 17 GM/SCOOP Oral Powder (MiraLax) Take 17 g by mouth in the morning and 17g before bedtime. Dissolve one heaping tablespoon in 8 ounces of water or juice.. fentaNYL 12 MCG/HR Transdermal Patch [address] 1 Patch over 72 hours topically on the skin every 3 days. For pain control. 10 Patch 0 Levothyroxine Sodium 175 MCG Oral Tablet (Levoxyl) Take 1 Tablet by mouth daily first thing in the morning. 90 Tablet 3 Aspirin 81 MG Oral Tablet Delayed Release Take 1 Tablet by mouth in the morning. oxyCODONE HCl 5 MG Oral Tablet (Oxy IR) Take 1 Tablet by mouth every 6 hours as needed for Pain, Breakthrough. [employer] Verio w/Device Kit Use up to 1 times a day. E11.9 1 Kit 0 OneTouch Verio In Vitro Strip (Glucose Blood) Test blood sugars up to 2 times a day E11.9 200 Strip3 Naloxone HCl 4 MG/0.1ML NA LIQD FOR CAREGIVER Administer 1 spray into 1 nostril for suspected opioid overdose. Seek immediate medical attention. https://www.youtube.com/watch?v=[email or web address] 1 Each 3 Senna-Docusate Sodium 8.6-50 MG Oral Tablet Take 1 Tablet by mouth at bedtime. (Patient not taking:Reported on 04/06/2024) 100 Tablet 3 No current facility-administered medications for this visit. The patient's medication list was reviewed and updated as needed. 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 Pleural effusion Pulmonary arterial hypertension (HCC) Pure hypercholesterolemia 07/02/2021 PVD (peripheral vascular disease) ([facility]) 05/15/2022 Retinopathy Secondary hyperparathyroidism, renal ([facility]) 12/17/2018 Severe mitral valve regurgitation 10/30/2022 Severe [...] performed by Izzy Stone MD at ENDOSCOPY [facility] COLONOSCOPY, DIAGNOSTIC (RECTUM) 11/10/2020 Hemorrhoids, multi polyps, diverticulosis in sigmoid colon/ biopsy show adenomatous polyp/ COLONOSCOPY FLEXIBLE PROXIMAL DIAGNOSTIC performed by Maine Stone MD at ENDOSCOPY [facility] COLONOSCOPY, DIAGNOSTIC (RECTUM) 03/11/2022 poor prep / [facility] CORONARY ANGIOGRAPHY W/RIGHT+LEFT CATH Right 01/24/2023 CORONARY ANGIOGRAPHY W/RIGHT+LEFT CATH performed by Wilbur Rivera MD at [facility] CYSTOSCOPY 06/2012 EGD, FLEXIBLE, DIAGNOSTIC 10/12/2014 normal bx, HH/[facility] EGD, FLEXIBLE, DIAGNOSTIC 01/05/2016 ESOPHAGOGASTRODUODENOSCOPY (EGD), FLEXIBLE, TRANSORAL, DIAGNOSTIC performed by Maine Stone MD at ENDOSCOPY [facility] EGD, FLEXIBLE, DIAGNOSTIC 03/11/2022 Multiple small non-bleeding fundic gland polyps / [facility] EGD, FLEXIBLE, DIAGNOSTIC 12/09/2022 mild-mod inflammation / [facility] LAPAROSCOPY TOTAL HYSTX, UTERUS 250GM OR LESS TUBE/OVARY N/A 02/22/2020 ROBOTIC LAPAROSCOPIC HYSTERECTOMY REMOVAL TUBES AND OVARIES FOR UTERUS 250GM OR LESS performed by Florentin Perez MD at OR [facility] LAPAROSCOPY; CHOLECYSTECTOMY N/A 06/06/2020 LIGATE/CUT OVIDUCT(S) MAMMOGRAM BREAST NEEDLE BIOPSY CORE LEFT Left 09/19/2015 benign NECK SPINE FUSION (CERV, BELOW C2) 1993 1999,2011 PATIENT EDU, LUMBAR LAMINECTOMY 2001 1996 too PERC CLOSURE TRANSCATH LEFT ATRIAL APPENDAGE W/ENDOCARDIAL IMPLANT Bilateral 07/31/2023 PERCUTANEOUS CLOSURE LEFT ATRIAL APPENDAGE IMPLANT performed by Wilbur Rivera MD at [facility] AR TONSILLECTOMY PRIMARY/SECONDARY LESS THAN AGE 12 Bilateral REPAIR RUPTURED ROTATOR CUFF, ACUTE Left 08/08/2015 SINUS SURGERY PROCEDURE NEC 1994 TRANSCATH REPAIR MITRAL VALVE, INITIAL Bilateral 03/06/2023 TRANSCATHETER MITRAL VALVE REPAIR performed by Wilbur Rivera MD at [facility] Review of patient's allergies indicates: Allergen Reactions [...] Systems Constitutional: Positive for fatigue. Negative for chills, fever and unexpected weight change. HENT: Negative for congestion, sore throat and trouble swallowing. Respiratory: Positive for shortness of breath. Negative for cough and wheezing. Cardiovascular: Negative for chest pain, palpitations and leg swelling. Gastrointestinal: Positive for constipation. Negative for abdominal pain, blood in stool, diarrhea,nausea and vomiting. Genitourinary: Negative for dysuria, frequency and hematuria. Musculoskeletal: Positive for arthralgias, back pain and gait problem. Neurological: Positive for tremors and weakness. Negative for dizziness, syncope and headaches. Psychiatric/Behavioral: Negative for confusion, decreased concentration and sleep disturbance. OBJECTIVE: BP 116/62 | Pulse 84 | Temp 35.3 C (95.6 F) | Resp 16 | Ht 1.651 m (5' 5") | Wt 71.9 kg (158 lb9.6 oz) | SpO2 98% | BMI 26.39 kg/m | BSA 1.82 m Physical Exam [...] orders placed or performed in visit on 03/30/24 COMPREHENSIVE METABOLIC PANEL Result Value Ref Range BUN 37 (H) 6 - 20 mg/dL Creatinine 1.7 (H) 0.5 - 1.0 mg/dL Estimated Glomerular Filtration Rate 29 (L) >=60 mL/min Sodium 137 135 - 146 mmol/L Potassium 5.0 3.5 - 5.1 mmol/L Chloride 99 98 - 107 mmol/L CO2 25 22 - 32 mmol/L Anion Gap 13 7 - 15 mmol/L Glucose 119 70 - 120 mg/dL Albumin 4.1 3.8 - 5.0 g/dL AST 57 (H) 10 - 35 U/L Alkaline Phosphatase 231 (H) 35 - 130 U/L Bilirubin, Total 0.3 <=1.2 mg/dL Calcium 9.7 8.4 - 10.2 mg/dL Protein 6.5 6.0 - 8.3 g/dL ALT 26 10 - 35 U/L IRON SCREEN, INCLUDING TIBC Result Value Ref Range Iron 47 33 - 151 ug/dL Iron Binding Capacity 262 250 - 425 ug/dL Transferrin Saturation Percent 18 15 - 55 % FERRITIN Result Value Ref Range Ferritin 615 (H) 13 - 150 ng/mL CBC Result Value Ref Range WBC 8.50 4.00 - 10.80 K/uL RBC 3.51 3.85 - 5.15 M/uL HGB 10.7 (L) 12.0 - 15.3 g/dL HCT 33.6 (L) 36.0 - 45.2 % MCV 95.7 81.5 - 97.5 fL MCH 30.5 27.0 - 34.0 pg MCHC 31.8 32.0 - 36.0 g/dL RDW 16.7 11.5 - 15.5 % PLT 229 140 - 400 K/uL MPV 10.4 6.6 - 11.1 fL nRBCs 0 <=0 /100 WBCs DIFFERENTIAL, AUTOMATED Result Value Ref Range WBC 8.50 4.00 - 10.80 K/uL Neutrophils % 72.8 40.0 - 75.0 % Lymphocytes % 10.9 (L) 18.0 - 42.0 % Monocytes % 8.7 1.0 - 11.0 % Eosinophils % 5.8 0.0 - 6.0 % Basophils % 0.6 0.0 - 2.0 % Immature Granulocytes % 1.2 0.0 - 2.0 % Absolute Neutrophils 6.19 1.80 - 7.70 K/uL Absolute Lymphocytes 0.93 (L) 1.00 - 4.80 K/ul Absolute Monocytes 0.74 0.00 - 1.10 K/uL Absolute Eosinophils 0.49 0.00 - 0.70 K/uL Absolute Basophils 0.05 0.00 - 0.20 K/uL Absolute Immature Granulocytes 0.10 0.00 - 0.20 K/uL *Note: Due to a large number of results and/or encounters for the requested time period, some results have not been displayed. A complete set of results can be found in Results Review. PLAN AND ASSESSMENT: Closed wedge compression fracture of T12 vertebra with routine healing, subsequent encounter (Primary) Continue Duragesic, Oxycodone, and Acetaminophen Type 2 diabetes mellitus with stage 3b chronic kidney disease, without long-term current use of insulin (HCC) Diet controlled Paroxysmal atrial fibrillation (HCC) Continue Metoprolol ER S/P Watchman Drug-induced constipation Take 1/2 cap of Mirlax until BM Secondary hyperparathyroidism, renal (HCC) Pulmonary hypertension (HCC) 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 ([facility]) Continue ASA Chronic diastolic CHF (congestive heart failure) ([facility]) Continue Torsemide 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 claudication Acquired hypothyroidism Continue Levothyroxine 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 ([facility]) Current moderate episode of major depressive disorder without prior episode (HCC) Continue Sertraline Moderate persistent asthma without complication Continue Montelukast, and Tiotropium Gastro-esophageal reflux disease without esophagitis Continue Pantoprazole Pure hypercholesterolemia Continue Atorvastatin Cardiac pacemaker in situ S/P mitral valve clip implantation Presence of Watchman left atrial appendage closure device Follow Up: Return in about 11 days (around 04/20/2024), or if symptoms worsen or fail to improve. Florentin Calvo DO 10:39 AM 04/09/2024 documented in this encounter Nursing Notes * Hilda Awad LPN - 04/09/2024 9:59 AM EDT Patient presents for follow up, voices no complaints. documented in this encounter Plan of Treatment Upcoming Encounters Date Type Department Care Team (Late st Contact Info) Description 04/12/2024 8:00 AM EDT Office Visit Hematology/Oncolog y [facility] [address] [place] [address] [facility]rey[facility] Metz [facility] [address] [facility] [id number] 04/14/2024 10:50 AM EDT Office Visit Vascular Surgery, [facility] [address] [place] [address] Aj Sahni MD [address] [place] [address] 04/20/2024 3:40 PM EDT Office Visit Family Practice [facility] [address] [place] [address] Fl[facility] [address] [facility] [address] 05/21/2024 12:46 PM EDT Hospital Encounter OR GL, Operating Room, [facility] - 4th Floor [address] [facility] [address] Jana Vieira, DO [address] [place] [address] 05/21/2024 12:46 PM EDT - 05/21/2024 1:31 PM EDT Surgery OR [facility], Operating Room, [facility] - 4th Floor [address] [facility] [place] [address] Jana Vieira, DO [address] [place] [address] COLONOSCOPY FLEXIBLE PROXIMAL DIAGNOSTIC 06/03/2024 2:15 PM EDT Office Visit Ophthalmology, [facility] [address] [facility] [place] [address] Wilbur Benavides, DO [address] [place] [address] 07/01/2024 2:30 PM EST Office Visit Gastroenterology, [facility] [address] [facility] [place] [address] Lacy Ronquillo CRNP [address] [facility] [place] [address] 08/09/2024 1:00 PM EST Nurse Only Ancillary [facility] [address] [facility] [address] [facility], Nurse Annual Wellness Visit [address] [address] Scheduled Procedures Name Priority Associated Diagnoses Date/Ti [...] COPD 07/31/2024 07/31/2023 CKD PHOS USE SMARTSET 50056 08/19/202407/26, 05/01/2022, 04/03/2022, Additional history exists Diabetic Foot Exam 09/15/2024 09/15/2023, 0 10/01/2022, 10/26/2021, Additional history exists Depression Monitoring 09/29/2024 09/29/2023 GFR 09/30/2024 03/30/2024, 02/23, 03/02/2024, Additional history exists Albumin/Creatinine Ratio 12/08/2024 024, 02/21/2023, 05/01/2022, Additional history exists TSH 03/15/2025 03/15/2024, 02/23, 12/08/2023, Additional history exists CKD HGB USE SMARTSET 46114 03/30/202503/30, 03/30/2024, 03/15/2024, Additional history exists DXA [...] encounter Medical Devices Implanted Type Area Corporate Investigator Device Identifier Shelf Expiration Date Model / Serial / Lot Cath Thermodilution 6fr - [id number] Implanted:Qty: 1 on 01/24/2023 by Wilbur Rivera MD at [facility] [place] [employer] TERE [id number] 10/15/2024 [id number] / / [id number] Clip Delivery Sytem G4 Xt - [id number] Implanted:Qty: 1 on 03/10/2023 at [facility] [employer] [id number] 04/15/2023 [id number] / / [id number] Clip Delivery Sytem G4 Xtw - [id number] Implanted:Qty: 1 on 03/10/2023 at [facility] [employer] [id number] 12/06/2023 [id number] TW / / [id number] Mirtaclip G4 - [id number] Implanted:Qty: 1 on 03/10/2023 at [facility] [employer] 11/19/2023 [id number] / / [id number] Device Watchman Flx 31mm - [id number] Implanted:Qty: 1 on 07/31/2023 by Wilbur Rivera MD at [facility] [employer] : INTRV CARD [id number] 12/02/2025 [id number] documented as of this encounter Visit Diagnoses Diagnosis Closed wedge compression fracture of T12 vertebra with routine healing, subsequent encounter- Primary Type 2 diabetes mellitus with stage 3b chronic kidney disease, without long-term current use of insulin (HCC) Paroxysmal atrial fibrillation (HCC) Atrial fibrillation Drug-induced constipation Other constipation Secondary hyperparathyroidism, renal (HCC) Secondary hyperparathyroidism (of renal origin) Pulmonary hypertension (HCC) Other chronic pulmonary heart diseases 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 (HCC) Chronic diastolic CHF (congestive heart failure) (HCC) Chronic diastolic heart failure 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 claudication Spinal stenosis, lumbar region, without neurogenic claudication Acquired hypothyroidism Unspecified hypothyroidism Angiodysplasia of colon with hemorrhage Angiodysplasia of intestine with hemorrhage Type 2 diabetes mellitus with polyneuropathy (HCC) Type II or unspecified type diabetes mellitus with neurological manifestations, not stated as uncontrolled Current moderate episode of major depressive disorder without prior episode (HCC) Moderate persistent asthma without complication Unspecified asthma Gastro-esophageal reflux disease without esophagitis Esophageal reflux Pure hypercholesterolemia Cardiac pacemaker in situ S/P mitral valve clip implantation Presence of Watchman left atrial appendage closure device Diarrhea, unspecified type History of diverticulitis documented in this encounter Advance Directives Documents on File Type Date Recorded Patient Impregnating Machine Operator Expl anation Advance Directives and Living Will 11/29/2022 ADVANCE DIRECTIVE / LIVING WILL Power of Coverstitch Machine Operator 11/29/2022 POWER OF A TTORNEY Advance Directives and Living Will 10/24/2014 ADVANCE DIRECTIVE / LIVING WILL Power of Coverstitch Machine Operator 10/24/2014 POWER OF A TTORNEY * [...] the patient have Health Care Power of Coverstitch Machine Operator? No * No Code Date Activated [...] Agen t (per Health Care Power of Coverstitch Machine Operator document) Care Teams Hogshead Weigher Relationship Specialty Start Date End Date Florentin Calvo DO [address] [place] [address] PCP - General Internal Medicine 02/06/24 documented as of this encounter
--- OUTSIDE RECORDS SUMMARY | 2024-04-13 02:10 | External Medical Summary | Summary of Care ---
Author Name Unknown Organization [facility] Address [address] [place] [address] Phone [phone] Care Team Providers Care Communications Attendant Name Role Phone Florentin Calvo DO Primary Care Provider [phone] Reason for Visit * Reason Comments Follow Up Encounter Details Date Type Department Care Team (Latest Contact Info) Description 04/09/2024 10:00 AM EDT Office Visit Family Practice [address] [place] [address] [address] [place] [phone] Florentin Calvo DO [address] [place] [address] Closed wedge compression fracture of T12 vertebra with routine healing, subsequent encounter*; Type 2 diabetes mellitus with stage 3b chronic kidney disease, without long-term current use of insulin ([facility]); Paroxysmal atrial fibrillation ([facility]); Drug-induced constipation; Secondary hyperparathyroidism, renal ([facility]); Pulmonary hypertension ([facility]); 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 ([facility]); Chronic diastolic CHF (congestive heart failure) ([facility]); 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 claudication; Acquired hypothyroidism; Angiodysplasia of colon with hemorrhage; Type 2 diabetes mellitus with polyneuropathy ([facility]); Current moderate episode of major depressive disorder without prior episode ([facility]); Moderate persistent asthma without complication; Gastro-esophageal reflux [...] as of this encounter (statuses as of 04/12/2024) Medications Medication Sig Dispensed Refills Start Date [...] DIRECTED 100 Tablet 3 03/31/2023 Active Ipratropium Coplay 0.03 % Nasal Solution (Atrovent)Indication s:Chronic rhinitis Administer 2 Sprays into nostril in the morning and 2 Sprays before bedtime. 90 mL 3 04/01/2023 Active Allopurinol 300 MG Oral Tablet (Zyloprim) Take 1 Tablet by mouth at bedtime. 90 Tablet 3 05/16/2023 Active Tiotropium Coplay-Olodaterol 2.5-2.5 MCG/ACT Inhalation Aerosol Solution (Stiolto Respimat) [...] 24 Hour (toPROL XL)Indications:Parox ysmal atrial fibrillation ([facility]) [...] suspected opioid overdose. Seek immediate medical attention. 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 Last Assessment & Plan: Now just using [...] as of this encounter (statuses as of 04/12/2024) Resolved Problems Problem Noted Date Diagnosed Date [...] as of this encounter (statuses as of 04/12/2024) Immunizations Name Administration Dates Next Due COVID-19 mRNA, LNP-s, No Pre serve, 2-Dose Series (Moderna) 06/23/2021,10/25/2020,09/28/2020 COVID-19, LNP-s, No Preserve , Larry-sucrose, Ages 12+ (Pfizer) 04/09/2022 COVID-19, MRNA-LNP, 23-24, P F, 30 MCG/0.3 mL, 12 YRS AND ABOVE, IM ([employer]) 06/09/2023 Covid-19, Mrna, Lnp-s, Pf, B ivalent, 30 Mcg, IM, 12 yrs and above ([email or web address]) 09/10/2022 HEP A - Hepatitis A (Adult [...] or do you have serious difficulty hearing? No-GULKANA can hear w/ hearing aid 03/07/2023 Are [...] of TIA (transient ischemic attack) Atherosclerosis of [place] coronary artery without angina pectoris S/P mitral [...] MOUTH EVERY DAY DIRECTED 100Tablet 3 Ipratropium Coplay 0.03 % Nasal Solution (Atrovent) Administer 2 Sprays into nostril in the morning and 2 Sprays before bedtime. 90 mL 3 Allopurinol 300 MG Oral Tablet (Zyloprim) Take 1 Tablet by mouth at bedtime. 90 Tablet 3 Tiotropium Coplay-Olodaterol 2.5-2.5 MCG/ACT Inhalation Aerosol Solution (Stiolto Respimat) [...] 6 hours as needed for Pain, Breakthrough. [employer] Verio w/Device Kit Use up to 1 times a day. E11.9 1 Kit 0 OneTouch Verio In Vitro Strip (Glucose Blood) Test blood sugars up to 2 times a day E11.9 200 Strip3 Naloxone HCl 4 MG/0.1ML NA LIQD FOR CAREGIVER Administer 1 spray into 1 nostril for suspected opioid overdose. Seek immediate medical attention. 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 Obstructive sleep apnea of adult 09/09/2014 PRINCIPAL BIOSTATISTICIAN Pleural effusion Pulmonary arterial hypertension (HCC) Pure hypercholesterolemia 07/02/2021 PVD (peripheral vascular disease) ([facility]) 05/15/2022 Retinopathy Secondary hyperparathyroidism, renal ([facility]) 12/17/2018 Severe mitral valve regurgitation 10/30/2022 Severe tricuspid regurgitation 11/18/2022 Spinal stenosis 07/2002 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 claudication 03/24/2013 Vertigo 03/24/2013 Past Surgical History: Procedure Laterality Date COLONOSCOPY, DIAGNOSTIC (RECTUM) 10/12/2014 inflammatory tissue on bx, diverticulosis/[facility] COLONOSCOPY, DIAGNOSTIC (RECTUM) 01/05/2016 diverticulosis, multiple non-bleeding colonic angioectasias COLONOSCOPY, DIAGNOSTIC (RECTUM) 04/15/2016 angiodysplastic lesion, diverticulosis/COLONOSCOPY FLEXIBLE PROXIMAL DIAGNOSTIC performed by Izzy Stone MD at ENDOSCOPY [facility] COLONOSCOPY, DIAGNOSTIC (RECTUM) 11/10/2020 Hemorrhoids, multi polyps, diverticulosis in sigmoid colon/ biopsy show adenomatous polyp/ COLONOSCOPY FLEXIBLE PROXIMAL DIAGNOSTIC performed by Maine Stone MD at ENDOS[facility] COLONOSCOPY, DIAGNOSTIC (RECTUM) 03/11/2022 poor prep / [facility] CORONARY ANGIOGRAPHY W/RIGHT+LEFT CATH Right 01/24/2023 CORONARY ANGIOGRAPHY W/RIGHT+LEFT CATH performed by Wilbur Rivera MD at [facility] CYSTOSCOPY 06/2012 EGD, FLEXIBLE, DIAGNOSTIC 10/12/2014 normal bx, HH/[facility] EGD, FLEXIBLE, DIAGNOSTIC 01/05/2016 ESOPHAGOGASTRODUODENOSCOPY (EGD), FLEXIBLE, TRANSORAL, DIAGNOSTIC performed by Maine Stone MD at ENDOSCOPY [facility] EGD, FLEXIBLE, DIAGNOSTIC 03/11/2022 Multiple small non-bleeding fundic gland polyps / [facility] EGD, FLEXIBLE, DIAGNOSTIC 12/09/2022 mild-mod inflammation / [facility] LAPAROSCOPY TOTAL HYSTX, UTERUS 250GM OR LESS TUBE/OVARY N/A 02/22/2020 ROBOTIC LAPAROSCOPIC HYSTERECTOMY REMOVAL TUBES AND OVARIES FOR UTERUS 250GM OR LESS performed by Florentin Perez MD at OR [facility] LAPAROSCOPY; CHOLECYSTECTOMY N/A [...] LABS [facility] [place] TONSILLECTOMY PRIMARY/SECONDARY LESS THAN AGE 12 Bilateral REPAIR RUPTURED ROTATOR CUFF, ACUTE Left 08/08/2015 SINUS SURGERY PROCEDURE NEC 1994 TRANSCATH REPAIR MITRAL VALVE, INITIAL Bilateral 03/06/2023 TRANSCATHETER MITRAL VALVE REPAIR performed by Wilbur Rivera MD at [facility] Review of patient's allergies [...] prolongation at [facility] Nickel Swelling Other reaction(s): Unknown Review of [...] 2 diabetes mellitus with peripheral vascular disease ([facility]) Continue ASA Chronic diastolic CHF (congestive heart failure) ([facility]) Continue Torsemide 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 claudication Acquired hypothyroidism Continue Levothyroxine 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 ([facility]) Current moderate episode of major depressive disorder [...] Care Team (Late st Contact Info) Description 04/14/2024 10:50 AM EDT Office Visit Vascular Surgery, [facility] [address] [place] [address] Aj Sahni MD [address] [place] [address] 04/20/2024 3:40 PM EDT Office Visit Family Practice [address] [place] [address] [address] [place] [address] Florentin Calvo DO [address] [place] [address] 04/22/2024 10:00 AM EDT Home Visit [facility] [address] [place] [address] Nikolay Wu RN [address] [place] [address] 05/21/2024 12:46 PM EDT Hospital Encounter OR [facility], Operating Room, [facility] - 4th Floor [address] [facility] [address] Jana Vieira, DO [address] [place] [address] 05/21/2024 12:46 PM EDT - 05/21/2024 1:31 PM EDT Surgery OR [facility], Operating Room, [facility] - 4th Floor [address] [place] [address] Jana Vieira, DO [address] [place] [address] COLONOSCOPY FLEXIBLE PROXIMAL DIAGNOSTIC 06/03/2024 2:15 PM EDT Office Visit Ophthalmology, [facility] 132 [facility] [place] [address] Wilbur Benavides, DO [address] [place] [address] 07/01/2024 2:30 PM EST Office Visit Gastroenterology, [facility] 132 [facility] [place] [address] Lacy Ronquillo CRNP 132 [facility] [place] [address] 08/09/2024 1:00 PM EST Nurse Only Ancillary [facility] [address] College, Nurse Annual Wellness Visit [address], [place] [address] Scheduled Procedures Name Priority Associated Diagnoses Date/Ti [...] COPD 07/31/2024 07/31/2023 CKD PHOS USE SMARTSET 22192 08/19/202407/26, 05/01/2022, 04/03/2022, Additional history exists Diabetic Foot Exam 09/15/2024 09/15/2023, 0 10/01/2022, 10/26/2021, Additional history exists Depression Monitoring 09/29/2024 09/29/2023 GFR 09/30/2024 03/30/2024, 02/23, 03/02/2024, Additional history exists Albumin/Creatinine Ratio 12/08/2024 024, 02/21/2023, 05/01/2022, Additional history exists TSH 03/15/2025 03/15/2024, 02/23, 12/08/2023, Additional history exists CKD HGB USE SMARTSET 97314 03/30/202503/30, 03/30/2024, 03/15/2024, Additional history exists DXA [...] this encounter Medical Devices Implanted Type Area Scalping Machine Operator Device Identifier Shelf Expiration Date Model / Serial / Lot Cath Thermodilution 6fr - [id number] Implanted:Qty: 1 on 01/24/2023 by Wilbur Rivera MD at [facility] [employer] TERE [id number] 10/15/2024 [id number] / / [id number] Clip Delivery Sytem G4 Xt - [id number] Implanted:Qty: 1 on 03/10/[address] [facility] [employer] [id number] 04/15/2023 [id number] / / [id number] Clip Delivery Sytem G4 Xtw - [id number] Implanted:Qty: 1 on 03/10/[address] [facility] [employer] [id number] 12/06/2023 [id number] / / [id number] Mirtaclip G4 - [id number] Implanted:Qty: 1 on 03/10/[address] [facility] [employer] 11/19/2023 [id number] / / [id number] Device Watchman Flx 31mm - [id number] Implanted:Qty: 1 on 07/31/2023 by Wilbru Rivera MD at [facility] [employer] : INTRV CARD [id number] 12/02/2025 [id number] documented as of this encounter Visit Diagnoses [...] Documents on File Type Date Recorded Patient Trial Mgr Expl anation Advance Directives and Living Will 11/29/2022 ADVANCE DIRECTIVE / LIVING WILL Power of Palaeontologist 11/29/2022 POWER OF A TTORNEY Advance Directives and Living Will 10/24/2014 ADVANCE DIRECTIVE / LIVING WILL Power of Palaeontologist 10/24/2014 POWER OF A TTORNEY * Full [...] the patient have Health Care Power of Palaeontologist? No * No Code Date Activated Date [...] Agen t (per Health Care Power of Palaeontologist document) Care Teams Communications Attendant Relationship Specialty Start Date End Date Florentin Calvo DO [address] [place] [address] PCP - General Internal Medicine 02/06/24 documented as of this encounter
--- OUTSIDE RECORDS SUMMARY | 2024-04-13 02:11 | External Medical Summary | Summary of Care ---
Author Name Unknown Organization [facility] Address [address] [place] [address] Phone [phone] Care Team Providers Care Out Of Town Collection Clerk Name Role Phone Florentin Calvo DO Primary Care Provider [phone] Reason for Visit * Reason Onset Date Comments [facility]: Maintenance 03/31/2024 Encounter Details Date Type Department Care Team (Late st Contact Info) Description 03/31/2024 9:45 AM EDT Scheduled Telephone [facility], [facility] 132 [facility] [place] [address] Coordinator, [facility] 132 [facility] [place] [address] Allergies Active Allergy Reactions Criticality Noted Date [...] as of this encounter (statuses as of 03/31/2024) Medications Medication Sig Dispensed Refills Start Date End Date Status PowerMag w/Device KitIndications:Type 2 diabetes mellitus with hemoglobin [...] DIRECTED 100 Tablet 3 03/31/2023 Active Ipratropium Kent 0.03 % Nasal Solution (Atrovent)Indication s:Chronic rhinitis Administer 2 Sprays into nostril in the morning and 2 Sprays before bedtime. 90 mL 3 04/01/2023 Active Allopurinol 300 MG Oral Tablet (Zyloprim) Take 1 Tablet by mouth at bedtime. 90 Tablet 3 05/16/2023 Active Tiotropium Kent-Olodaterol 2.5-2.5 MCG/ACT Inhalation Aerosol Solution (Stiolto [...] 24 Hour (toPROL XL)Indications:Parox ysmal atrial fibrillation ([facility]) Take 1 Tablet by mouth in the [...] (Demadex)Indications :Chronic diastolic CHF (congestive heart failure) ([facility]) Take 2 Tablets by mouth in the morning. 200 Tablet 3 02/24/2024 Active Polyethylene Glycol 3350 17 GM/SCOOP Oral Powder (MiraLax) Take 17 g by mouth in the morning and 17 g before bedtime. Dissolve one heaping tablespoon in 8 ounces of water or juice.. 03/12/2024 Active Additional Information Patient not taking.Reported on 03/30/2024 Naloxone HCl 4 MG/0.1ML NA LIQD FOR CAREGIVERIndications :Compression fracture of T12 vertebra, initial encounter ([facility]) Administer 1 spray into 1 nostril for suspected opioid overdose. Seek immediate medical attention. [email or web address]://[email or web address]?[email or web address] 1 Each 3 03/16/2024 5 Active fentaNYL 12 MCG/HR Transdermal Patch 72 HourIndications:Comp ression fracture of T12 vertebra, initial encounter ([facility]) Place 1 Patch over 72 hours topically on the skin every 3 days. For pain control. 10 Patch 03/16/2024 Active Levothyroxine Sodium 175 MCG Oral Tablet (Levoxyl)Indications :Acquired hypothyroidism Take 1 Tablet by mouth daily first thing in the morning. 90 Tablet 3 03/17/2024 Active Aspirin 81 MG Oral Tablet Delayed Release Take 1 Tablet by mouth in the morning. Active Ferrous Sulfate 325 (65 Fe) MG Oral Tablet Delayed Release Take 1 Tablet by mouth daily. Active Senna-Docusate Sodium 8.6-50 MG Oral TabletIndications:Dr ug-induced constipation Take 1 Tablet by mouth at bedtime. 100 Tablet 3 03/30/2024 Active oxyCODONE HCl 5 MG Oral Tablet (Oxy IR)Indications:Close d fracture of multiple ribs of left side with routine healing, subsequent encounter Take 1 Tablet by mouth every 6 hours as needed for Pain, Breakthrough. 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 No-LAC VIEUX can hear w/ hearing aid 03/07/2023 Are [...] Miscellaneous Notes * Telephone Encounter - Sheela Keys OSA - 03/31/2024 8:20 AM EDT Called to [facility] at [phone] for DME update. Spoke with [employer], they will be delivering bed and gel overlay today between noon and 4pm. RADHA Crabtree documented in this encounter Plan of Treatment Upcoming Encounters Date Type Department Care Team (Late st Contact Info) Description 03/31/2024 2:30 PM EDT Home Visit [facility] [address] [place] [address] Nikolay Wu, RN [address] [place] [address] 04/05/2024 11:00 AM EDT Imaging Vascular Lab, [facility] [address] [facility] [address] [place] [address] 04/09/2024 10:00 AM EDT Office Visit Family Practice 65 [facility] [place] [address] [place] [phone] Florentin Calvo, DO [address] [place] [facility] [address] 04/12/2024 8:00 AM EDT Office Visit Hematology/Oncolog y [facility] [address] [place] [address] Nereyda Metz CRNP [address] [place] [address] 04/14/2024 10:50 AM EDT Office Visit Vascular Surgery, [facility] 132 [place] [address] Aj Sahni MD [address] [place] [address] 04/20/2024 3:40 PM EDT Office Visit Family Practice 65 [facility] 293 [place] [address] Florentin Calvo, DO 293 [facility] [address] 05/21/2024 1:14 PM EDT Hospital Encounter OR [facility], Operating Room, [facility] - 4th Floor [address] [place] [address] Jana Vieira, DO [address] [facility] [place] [address] 05/21/2024 1:14 PM EDT - 05/21/2024 1:59 PM EDT Surgery OR [facility], Operating Room, [facility] - 4th Floor [address] [place] [address] Jana Vieira, DO [address] [facility] [place] [address] COLONOSCOPY FLEXIBLE PROXIMAL DIAGNOSTIC 06/03/2024 2:15 PM EDT Office Visit Ophthalmology, [facility] 132 [facility] [place] [address] Wilbur Benavides, DO [address] [place] [address] 07/01/2024 2:30 PM EST Office Visit Gastroenterology, [facility] 132 [facility] [place] [address] Lacy Ronquillo CRNP 132 [facility] [place] [address] 08/09/2024 1:00 PM EST Nurse Only Ancillary 65 [facility] 293 [facility] [place] [address] College, Nurse Annual Wellness Visit [address] [place] [address] Scheduled Procedures Name Priority Associated Diagnoses Date/Ti me COLONOSCOPY FLEXIBLE PROXIMA L DIAGNOSTIC Diarrhea, unspecified type History of diverticulitis 05/21/2024 1:14 PM EDT ESOPHAGOGASTRODUODENOSCOPY ( EGD), FLEXIBLE, TRANSORAL, DIAGNOSTIC Diarrhea, unspecified type History of diverticulitis 05/21/2024 1:14 PM EDT Health Maintenance Due Date Last Done Comments Alpha-1 Antitrypsin 1958 Adult Wellness Visit 10/01/2023 10/01/2022, 04/27/20 21 COVID-19 Vaccine ( season) 2024 06/09/2023, 09/10/2022, 04/09/2022, Additional history exists Postponed from 08/04/2023 (Patient Declined After Education) Influenza Vaccine (FLU shot) (#1) 2024 05/13/2023, 05/15/2022, 05/22/2021, Additional history exists Diabetic Eye Exam 05/22/2024 05/22/2023, , 05/22/2023, Additional history exists HbA1c 06/08/2024 12/08/2023, 07/26, 02/21/2023, Additional history exists O2 ASSESSMENT COMPLETED IN PAST YEAR FOR COPD 07/31/2024 07/31/2023 CKD PHOS USE SMARTSET 99603 08/19/202407/26, 05/01/2022, 04/03/2022, Additional history exists Diabetic Foot Exam 09/15/2024 09/15/2023, 0 10/01/2022, 10/26/2021, Additional history exists Depression Monitoring 09/29/2024 09/29/2023 GFR 09/30/2024 03/30/2024, 02/23, 03/02/2024, Additional history exists Albumin/Creatinine Ratio 12/08/2024 024, 02/21/2023, 05/01/2022, Additional history exists TSH 03/15/2025 03/15/2024, 02/23, 12/08/2023, Additional history exists CKD HGB USE SMARTSET 09271 03/30/202503/30, 03/30/2024, 03/15/2024, Additional history exists DXA [...] this encounter Medical Devices Implanted Type Area Pill Machine Operator Device Identifier Shelf Expiration Date Model / Serial / Lot Cath Thermodilution 6fr - [id number] Implanted:Qty: 1 on 01/24/2023 by Wilbur Rivera MD at [facility] [employer] TERE [id number] 10/15/2024 [id number] / / [id number] Clip Delivery Sytem G4 Xt - [id number] Implanted:Qty: 1 on 03/10/2023 at [facility] [employer] [id number] 04/15/2023 [id number] / / [id number] Clip Delivery Sytem G4 Xtw - [id number] Implanted:Qty: 1 on 03/10/2023 at [facility] [employer] [id number] 12/06/2023 [id number] TW / / [id number] Mirtaclip G4 - [id number] Implanted:Qty: 1 on 03/10/2023 at [facility] [employer] 11/19/2023 [id number] / / [id number] Device Watchman Flx 31mm - [id number] Implanted:Qty: 1 on 07/31/2023 by Wilbur Rivera MD at [facility] [employer] : INTRV CARD [id number] 12/02/2025 [id number] / / [id number] documented as of this encounter Advance Directives Documents on File Type Date Recorded Patient Teletypesetter Expl anation Advance Directives and Living Will 11/29/2022 ADVANCE DIRECTIVE / LIVING WILL Power of Residential Collections 11/29/2022 POWER OF A TTORNEY Advance Directives and Living Will 10/24/2014 ADVANCE DIRECTIVE / LIVING WILL Power of Residential Collections 10/24/2014 POWER OF A TTORNEY * Full [...] patient have Health Care Power of Residential Collections? No * No Code Date Activated Date [...] t (per Health Care Power of Residential Collections document) Care Teams Out Of Town Collection Clerk Relationship Specialty Start Date End Date Florentin Calvo DO [address] [place] [facility] [address] PCP - General Internal Medicine 02/06/24 documented as of this encounter
--- OUTSIDE RECORDS SUMMARY | 2024-04-13 02:11 | External Medical Summary | Summary of Care ---
Author Name Unknown Organization [facility] Address [address] [place] [address] Phone [phone] Care Team Providers Care Recreation Adviser Name Role Phone Florentin Calvo DO Primary Care Provider [phone] Reason for Visit * Reason Onset Date Comments Test Results 04/01/202404/01 Encounter Details Date Type Department Care Team (Late st Contact Info) Description 04/01/2024 Telephone Family Practice [address] [facility] [place] [address] [place] [address] Florentin Calvo DO [address] [place] [address] Test Results (04/01) Allergies Active Allergy Reactions Criticality Noted Date [...] hives Vancomycin Hives,Rash High 03/24/2013 Other reaction(s): Ojdi syn. . documented as of this encounter (statuses as of 04/01/2024) Medications Medication Sig Dispensed Refills Start Date End Date Status ExactCost w/Device KitIndications:Type 2 diabetes mellitus with hemoglobin [...] for Wheezing. 15 g 12 06/13/2022 Active [employer] VerShipey In Vitro Strip (Glucose Blood) Test blood [...] DIRECTED 100 Tablet 3 03/31/2023 Active Ipratropium [place] 0.03 % Nasal Solution (Atrovent)Indicatio ns:Chronic rhinitis Administer 2 Sprays into nostril in the morning and 2 Sprays before bedtime. 90 mL 3 04/01/2023 Active Allopurinol 300 MG Oral Tablet (Zyloprim) Take 1 Tablet by mouth at bedtime. 90 Tablet 3 05/16/2023 Active Tiotropium [place]-Olodaterol 2.5-2.5 MCG/ACT Inhalation Aerosol Solution (Stiolto Respimat) [...] 01/22/2024 Active Torsemide 10 MG Oral Tablet (Demadex)Indication s:Chronic diastolic CHF (congestive heart failure) ([facility]) Take 2 Tablets by mouth in [...] of T12 vertebra, initial encounter ([facility]) Administer 1 spray into 1 nostril for suspected opioid overdose. Seek immediate medical attention. [email or web address] 1 Each 3 03/16/2024 5 Active fentaNYL 12 MCG/HR Transdermal Patch 72 HourIndications:Com pression fracture of T12 vertebra, initial encounter ([facility]) Place 1 Patch over 72 hours [...] morning. Active Senna-Docusate Sodium 8.6-50 MG Oral TabletIndications:D rug-induced constipation Take 1 Tablet by mouth at bedtime. 100 Tablet 3 03/30/2024 Active oxyCODONE HCl 5 MG Oral Tablet (Oxy IR)Indications:Clos ed fracture of multiple ribs of left side with routine healing, subsequent encounter Take 1 Tablet by mouth every 6 hours as needed for Pain, Breakthrough. 03/30/2024 Active Ferrous Sulfate 325 (65 Fe) MG Oral Tablet Delayed Release Take 1 Tablet by mouth daily. 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 No-[place] can hear w/ hearing aid 03/07/2023 Are [...] Telephone Encounter - Ania Kebede LPN - 04/01/2024 11:30 AM EDT Call placed to patient - spoke to son Bright and relayed information from Dr. Calvo. Bright acknowledged understanding and will relay to pt. Will stop oral iron and will have repeat lab work in 1 month. Medication list updated. Lab order pended. * Telephone Encounter - Ania Kebede LPN - 04/01/2024 11:20 AM EDT ----- Message from Florentin Calvo DO sent at 03/31/2024 7:50 PM EDT ----- Iron level is good. Stop Oral Iron No need for IV iron at this time. LFT are slightly abnormal Repeat LFT in 1 month. Renal function is stable. documented in this encounter Plan of Treatment Upcoming Encounters Date Type Department Care Team (Late st Contact Info) Description 04/05/2024 11:00 AM EDT Imaging Vascular Lab, [facility] 2nd [facility] [address] [place] [address] 04/06/2024 2:30 PM EDT Home Visit Care Coordination and Integration [address] [place] [address] Becky Green, Community Health Net Developer Programmer [address] [place] [address] 04/09/2024 10:00 AM EDT Office Visit Family Practice [address] [place] [address] [address] [place] [address] Florentin Calvo, [address] [place] [address] 04/12/2024 8:00 AM EDT Office Visit Hematology/Oncology [facility] [address] [place] [address] Nereyda Metz CRNP [address] [place] [address] 04/14/2024 10:50 AM EDT Office Visit Vascular Surgery, [facility] [address] [place] [address] Aj Sahni MD [address] [place] [address] 04/20/2024 3:40 PM EDT Office Visit Family Practice [address] [place] [address] [address] [place] [address] Florentin Calvo, [address] [place] [address] 05/21/2024 1:14 PM EDT Hospital Encounter OR [facility], Operating [facility] - 4th Floor [address] [place] [address] Jana Vieira, [facility] [address] 05/21/2024 1:14 PM EDT - 05/21/2024 1:59 PM EDT Surgery OR [facility], Operating Room, [facility] - 4th Floor [address] [place] [address] Jana Vieira, DO [address] [place] [address] COLONOSCOPY FLEXIBLE PROXIMAL DIAGNOSTIC 06/03/2024 2:15 PM EDT Office Visit Ophthalmology, [facility] 132 [facility] [place] [address] Wilbur Benavides, DO [address] [facility] [place] [address] 07/01/2024 2:30 PM EST Office Visit Gastroenterology, [facility] 132 [facility] [place] [address] Lacy Ronquillo CRNP 132 [facility] [place] [address] 08/09/2024 1:00 PM EST Nurse Only Ancillary 65 [facility] 293 [facility], [place] [address] College, Nurse Annual Wellness Visit [address], [place] [address] Scheduled Orders Name Type Priority Associated Diagnoses Orde r Schedule HEPATIC FUNCTION PANEL Lab Routine Abnormal LFTs Expected: 05/02/2024 (Approximate), Expires: 04/01/2025 Scheduled Procedures Name Priority Associated Diagnoses Date/Ti me COLONOSCOPY FLEXIBLE PROXIMA L DIAGNOSTIC Diarrhea, unspecified type History of diverticulitis 05/21/2024 1:14 PM EDT ESOPHAGOGASTRODUODENOSCOPY ( EGD), FLEXIBLE, TRANSORAL, DIAGNOSTIC Diarrhea, unspecified type History of diverticulitis 05/21/2024 1:14 PM EDT Health Maintenance Due Date Last Done Comments Alpha-1 Antitrypsin 1958 COVID-19 Vaccine ( season) 2023 06/09/2023, 09/10/2022, 04/09/2022, Additional history exists Adult Wellness Visit 10/01/2023 10/01/2022, 04/27/20 21 Influenza Vaccine (FLU shot) (#1) 2024 05/13/2023, 05/15/2022, 05/22/2021, Additional history exists Diabetic Eye Exam 05/22/2024 05/22/2023, , 05/22/2023, Additional history exists HbA1c 06/08/2024 12/08/2023, 07/26, 02/21/2023, Additional history exists O2 ASSESSMENT COMPLETED IN PAST YEAR FOR COPD 07/31/2024 07/31/2023 CKD PHOS USE SMARTSET 62263 08/19/202407/26, 05/01/2022, 04/03/2022, Additional history exists Diabetic Foot Exam 09/15/2024 09/15/2023, 0 10/01/2022, 10/26/2021, Additional history exists Depression Monitoring 09/29/2024 09/29/2023 GFR 09/30/2024 03/30/2024, 02/23, 03/02/2024, Additional history exists Albumin/Creatinine Ratio 12/08/2024 024, 02/21/2023, 05/01/2022, Additional history exists TSH 03/15/2025 03/15/2024, 02/23, 12/08/2023, Additional history exists CKD HGB USE SMARTSET 36089 03/30/202503/30, 03/30/2024, 03/15/2024, Additional history exists DXA [...] encounter Medical Devices Implanted Type Area Supervisor Paper Products Device Identifier Shelf Expiration Date Model / Serial / Lot Cath Thermodilution 6fr - [id number] Implanted:Qty: 1 on 01/24/2023 by Wilbur Rivera MD at [facility] [employer] [id number] 10/15/2024 [id number] / / [id number] Clip Delivery Sytem G4 Xt - [id number] Implanted:Qty: 1 on 03/10/2023 at [facility] [employer] [id number] 04/15/2023 [id number] / / [id number] Clip Delivery Sytem G4 Xtw - [id number] Implanted:Qty: 1 on 03/10/2023 at [facility] [employer] [id number] 12/06/2023 [id number] TW / / [id number] Mirtaclip G4 - [id number] Implanted:Qty: 1 on 03/10/2023 at [facility] [employer] 11/19/2023 [id number] / / [id number] Device Watchman Flx 31mm - [id number] Implanted:Qty: 1 on 07/31/2023 by Wilbur Rivera MD at [facility] [employer] : INTRV CARD [id number] 12/02/2025 [id number] documented as of this encounter Visit Diagnoses Diagnosis Abnormal LFTs- Primary Other abnormal blood chemistry Diarrhea, unspecified type History of diverticulitis documented in this encounter Advance Directives Documents on File Type Date Recorded Patient Human Resources Executive Assistant Expl anation Advance Directives and Living Will 11/29/2022 ADVANCE DIRECTIVE / LIVING WILL Power of Warp Tester 11/29/2022 POWER OF A TTORNEY Advance Directives and Living Will 10/24/2014 ADVANCE DIRECTIVE / LIVING WILL Power of Warp Tester 10/24/2014 POWER OF A TTORNEY * Full [...] the patient have Health Care Power of Warp Tester? No * No Code Date Activated Date [...] Agen t (per Health Care Power of Warp Tester document) Care Teams Recreation Adviser Relationship Specialty Start Date End Date Florentin Calvo DO [address] [place] [address] PCP - General Internal Medicine 02/06/24 documented as of this encounter
--- OUTSIDE RECORDS SUMMARY | 2024-04-13 02:11 | External Medical Summary | Summary of Care ---
Author Name Unknown Organization [facility] Address [address] [place] [address] Phone [phone] Care Team Providers Care Seismograph Observer Name Role Phone Florentin Calvo DO Primary Care Provider [phone] Reason for Visit * Reason Onset Date Comments Encounter Created in Error 03/29/2024 Encounter Details Date Type Department Care Team (Late st Contact Info) Description 03/29/2024 9:00 AM EDT Scheduled Telephone [facility], [facility] 132 [place] [address] Coordinator, [facility] 132 [place] [address] Allergies Active Allergy Reactions Criticality Noted Date [...] as of this encounter (statuses as of 04/02/2024) Medications Medication Sig Dispensed Refills Start Date End Date Status Compliance 360 Verio w/Device KitIndications:Type 2 diabetes mellitus with [...] DIRECTED 100 Tablet 3 03/31/2023 Active Ipratropium [place] 0.03 % Nasal Solution (Atrovent)Indication s:Chronic rhinitis Administer 2 Sprays into nostril in the morning and 2 Sprays before bedtime. 90 mL 3 04/01/2023 Active Allopurinol 300 MG Oral Tablet (Zyloprim) Take 1 Tablet by mouth at bedtime. 90 Tablet 3 05/16/2023 Active Tiotropium [place]-Olodaterol 2.5-2.5 MCG/ACT Inhalation Aerosol Solution (Stiolto Respimat) [...] fibrillation ([facility] Take 1 Tablet by mouth in the [...] failure) ([facility]) Take 2 Tablets by mouth in the [...] initial encounter ([facility]) Administer 1 spray into 1 nostril for suspected opioid overdose. Seek immediate medical attention. [email or web address] 1 Each 3 03/16/2024 5 Active fentaNYL 12 MCG/HR Transdermal Patch 72 HourIndications:Comp ression fracture of T12 vertebra, initial encounter ([facility]) Place 1 Patch over 72 hours topically on the skin every 3 days. For pain control. 10 Patch 03/16/2024 Active Levothyroxine Sodium 175 MCG Oral Tablet (Levoxyl)Indications :Acquired hypothyroidism Take 1 Tablet by mouth daily first thing in the morning. 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 Last Assessment & Plan: Now just [...] as of this encounter (statuses as of 04/02/2024) Resolved Problems Problem Noted Date Diagnosed Date [...] as of this encounter (statuses as of 04/02/2024) Immunizations Name Administration Dates Next Due COVID-19 mRNA, LNP-s, No Pre serve, 2-Dose Series (Moderna) 06/23/2021,10/25/2020,09/28/2020 COVID-19, LNP-s, No Preserve , Larry-sucrose, Ages 12+ (Pfizer) 04/09/2022 COVID-19, MRNA-LNP, 23-24, P F, 30 MCG/0.3 mL, 12 YRS AND ABOVE, IM ([employer]ig Games-Comirnaty) 06/09/2023 Covid-19, Mrna, Lnp-s, Pf, B ivalent, [...] No 09/29/2023 Does the household have a [facility] source of income? (Household - for ages [...] or do you have serious difficulty hearing? No-[place] can hear w/ hearing aid 03/07/2023 Are [...] 04/05/2024 11:00 AM EDT Imaging Vascular Lab, [facility] 2nd [facility] 132 [facility] [place] [address] 04/06/2024 2:30 PM EDT Home Visit Care Coordination and Integration [address] [place] [address] Becky Green, Community Health Master Planner [address] [place] [address] 04/09/2024 10:00 AM EDT Office Visit Family Practice [address] [place] [address] [address] [place] [address] Florentin Calvo, DO [address] [place] [address] 04/12/2024 8:00 AM EDT Office Visit Hematology/Oncology [facility] [address] [place] [address] Nereyda Metz CRNP [address] [place] [address] 04/14/2024 10:50 AM EDT Office Visit Vascular Surgery, [facility] 132 [facility] [place] [address] Aj Sahni MD [address] [place] [address] 04/20/2024 3:40 PM EDT Office Visit Family [address] [place] [address] Florentin Calvo, DO 293 [facility], [place] [address] 05/21/2024 1:12 PM EDT Hospital Encounter OR [facility], Operating Room, [facility] - 4th Floor [address] [place] [address] Jana Vieira, DO [address] [place] [address] 05/21/2024 1:12 PM EDT - 05/21/2024 1:57 PM EDT Surgery OR [facility], Operating Room, [facility] - 4th Floor [address] [place] [address] Jana Vieira, DO 132 [facility] [place] [address] COLONOSCOPY FLEXIBLE PROXIMAL DIAGNOSTIC 06/03/2024 2:15 PM EDT Office Visit Ophthalmology, [facility] 132 [facility] [place] [address] Wilbur Benavides, DO [facility] [address] 07/01/2024 2:30 PM EST Office Visit Gastroenterology, [facility] 132 [facility] [place] [address] Lacy Ronquillo CRNP 132 [facility] [place] [address] 08/09/2024 1:00 PM EST Nurse Only Ancillary [address], [place] [address] College, Nurse Annual Wellness Visit [address] [address] Scheduled Procedures Name Priority Associated Diagnoses Date/Ti me COLONOSCOPY FLEXIBLE PROXIMA L DIAGNOSTIC Diarrhea, unspecified type History of diverticulitis 05/21/2024 1:12 PM EDT ESOPHAGOGASTRODUODENOSCOPY ( EGD), FLEXIBLE, TRANSORAL, DIAGNOSTIC Diarrhea, unspecified type History of diverticulitis 05/21/2024 1:12 PM EDT Health Maintenance Due Date Last [...] COPD 07/31/2024 07/31/2023 CKD PHOS USE SMARTSET 28890 08/19/202407/26, 05/01/2022, 04/03/2022, Additional history exists Diabetic Foot Exam 09/15/2024 09/15/2023, 0 10/01/2022, 10/26/2021, Additional history exists Depression Monitoring 09/29/2024 09/29/2023 GFR 09/30/2024 03/30/2024, 02/23, 03/02/2024, Additional history exists Albumin/Creatinine Ratio 12/08/2024 024, 02/21/2023, 05/01/2022, Additional history exists TSH 03/15/2025 03/15/2024, 02/23, 12/08/2023, Additional history exists CKD HGB USE SMARTSET 79358 03/30/202503/30, 03/30/2024, 03/15/2024, Additional history exists DXA [...] this encounter Medical Devices Implanted Type Area Paste Plant Supervisor Device Identifier Shelf Expiration Date Model / Serial / Lot Cath Thermodilution 6fr - [id number] Implanted:Qty: 1 on 01/24/2023 by Wilbur Rivera MD at [facility] [employer] [id number] 10/15/2024 [id number] / / [id number] Clip Delivery Sytem G4 Xt - [id number] Implanted:Qty: 1 on 03/10/2023 at [facility] [employer] [id number] 04/15/2023 [id number] / / [id number] Clip Delivery Sytem G4 Xtw - [id number] Implanted:Qty: 1 on 03/10/2023 at [facility] [employer] [id number] 12/06/2023 [id number] / / [id number] Mirtaclip G4 - [id number] Implanted:Qty: 1 on 03/10/2023 at [facility] [employer] 11/19/2023 [id number] / / [id number] Device Watchman Flx 31mm - [id number] Implanted:Qty: 1 on 07/31/2023 by Wilbur Rivera MD at [facility] [email or web address] : INTRV CARD [id number] 12/02/2025 [id number] / / [id number] documented as of this encounter Advance Directives Documents on File Type Date Recorded Patient Live In Companion Expl anation Advance Directives and Living Will 11/29/2022 ADVANCE DIRECTIVE / LIVING WILL Power of Family Member Caretaker 11/29/2022 POWER OF A TTORNEY Advance Directives and Living Will 10/24/2014 ADVANCE DIRECTIVE / LIVING WILL Power of Family Member Caretaker 10/24/2014 POWER OF A TTORNEY * Full [...] the patient have Health Care Power of Family Member Caretaker? No * No Code Date Activated Date [...] Healthcare Agent [facility] Communication Brigth Barakat Adult Child Health Care Frieda t (per Health Care Power of Family Member Caretaker document) Care Teams Seismograph Observer Relationship Specialty Start Date End Date Florentin Calvo DO [address] [place] [address] PCP - General Internal Medicine 02/06/24 documented as of this encounter
--- OUTSIDE RECORDS SUMMARY | 2024-04-13 02:11 | External Medical Summary | Summary of Care ---
Author Name Unknown Organization [facility] Address [address] [place] [address] Phone [phone] Care Team Providers Care Manager Environmental Name Role Phone Florentin Calvo DO Primary Care Provider [phone] Reason for Visit * Reason Comments [facility]: Transition of Care Encounter Details Date Type Department Care Team (Late st Contact Info) Description 03/31/2024 2:30 PM EDT Home Visit [facility], [facility] 132 [facility] [place] [address] Nikolay Wu, RN 132 [place] [address] Closed wedge compression fracture of T12 vertebra, initial encounter ([facility])* Allergies Active Allergy Reactions Criticality Noted Date [...] Dispensed Refills Start Date End Date Status Riverbed TechnologyTouch Verio w/Device KitIndications:Type 2 diabetes mellitus with [...] Tablet (Lipitor)Indications :PVD (peripheral vascular disease) ([facility]),Type 2 diabetes mellitus with stage 3a chronic kidney disease and hypertension ([facility]) TAKE ONE TABLET BY MOUTH EVERY DAY DIRECTED 100 Tablet 3 03/31/2023 Active Ipratropium [place] 0.03 % Nasal Solution (Atrovent)Indication s:Chronic rhinitis Administer 2 Sprays into nostril in the morning and 2 Sprays before bedtime. 90 mL 3 04/01/2023 Active Allopurinol 300 MG Oral Tablet (Zyloprim) Take 1 Tablet by mouth at bedtime. 90 Tablet 3 05/16/2023 Active Tiotropium [place]-Olodaterol 2.5-2.5 MCG/ACT Inhalation Aerosol Solution (Stiolto Respimat) [...] Hour (toPROL XL)Indications:Parox ysmal atrial fibrillation ([facility]) Take 1 Tablet by [...] :Chronic diastolic CHF (congestive heart failure) ([facility]) Take 2 Tablets by [...] fracture of T12 vertebra, initial encounter ([facility]) Administer 1 spray into 1 nostril for suspected opioid overdose. Seek immediate medical attention. 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 Background: PMH includes: CHF pEF 60-65%, CAD/PVD, Afib on Eliquis, post-Watchman device, Mitral valve clip, HTN, COPD, Anermia, GERD Utilization: 03/21/24-03/25/24 [facility] admission- Uncontrolled back pain, constipation Assessment: Pt presented to [facility] on 03/21/24 for uncontrolled back pain, constipation-diarrhea Pt had fall two weeks prior with T12 compression fracture and refused admission at the time Had been utilizing oxycodone as primary pain management- had bout of constipation which worsened into watery diarrhea VS WNL Heart R&R regular Lungs clear bilaterally Trace edema to BLE Per pt report: Voiding without difficulty Bowels WNL Last BM today- Per pt BM was formed and small Appetite good Taking fluids well Refused rehab per discharge note Not wearing brace when relaxing in home due to bulkiness States is more comfortable to wear when going to be standing/walking for longer periods of time Reinforced use and encouraged pt to wear brace as directed-Continue w/TLSO brace when standing and walking, encouraged to walk Weight restriction no more than 5 lbs lifting Pt currently using combination of Tylenol, Oxycodone and Fentanyl transdermal patch to manage pain effectively Pt to complete in home PT BID-[facility] PT Daughter Kathy manages medications- provides pt with pill cup with medications at time of vist Kathy able to review medications with this RN Medications changed by Dr Calvo per pt daughter: Apixiban stopped ASA started Senna started Zyrtec stopped Melatonin stopped Not taking BS Not on injectables Daughter Kathy staying with pt and pt until end of March, then returning to [place] Problems/Symptoms: Review of Systems Constitutional: Positive for fatigue. HENT: Negative. Respiratory: Positive for shortness of breath (with exertion at baseline). Cardiovascular: Positive for leg swelling (Trace edema to BLE). Musculoskeletal: Positive for back pain and gait problem. Skin: Negative. Physical Exam: BP 116/60 (BP Site: Right Arm, BP Position: Sitting, BP Cuff Size: Regular) | Pulse 74 | Temp 36.5 C (97.7 F) (Tympanic) | Resp 16 | SpO2 95% Pain 5- Per pt this is mild as she has been sitting all day, significantly increases if up and moving Physical Exam Cardiovascular: Rate and Rhythm: Normal rate and regular rhythm. Abdominal: General: Bowel sounds are normal. Palpations: Abdomen is soft. Skin: General: Skin is warm and dry. Capillary Refill: Capillary refill takes 2 to 3 seconds. Neurological: Mental Status: She is alert and oriented to person, place, and time. Psychiatric: Mood and Affect: Mood normal. Behavior: Behavior normal. [facility]-10 Completed this Visit: Yes. [facility]: Reason Completed: Status post ED visit/hospital admission [facility]-10 ([facility]) Fall Risk Assessment Tool Age 65+: Yes (03/31/241399) Diagnosis (3 or more co-existing): Yes (03/31/241399) Prior history of falls within 3 months: Yes (03/31/241399) Incontinence: No (03/31/241399) Visual impairment: Yes (03/31/241399) Impaired functional mobility: Yes (03/31/241399) Environmental hazards: Yes (03/31/241399) Poly Pharmacy (4 or more prescriptions - any type): Yes (03/31/241399) Pain affecting level of function: Yes (03/31/241399) Cognitive impairment: No (03/31/241399) Score - a score of 4 or more is considered at risk for fallin (03/31/241399) [facility] Interventions: Fall education provided, reviewed/provided Fall brochure Confirmed current care and supervision in home: Daughter Kathy Recommendation/Treatment/Plan: Continue medications as prescribed- no changes made as a result of today's visit Keep upcoming medical appointments; appointment dates and times reviewed with patient at time of visit Fall and safety precautions Fluids encouraged Low Na diet Weigh self 3x a week and record Fall precautions, slow position change, use walker at all times Elevate BLE PRN for edema [facility] physical therapy at home Home Interventions Provided: Reinforced current Plan of Care, including self-management and medication regimen Patient's 'Red Flags': Increased SOB above baseline Wt gain of 2-3 lbs in 24 hrs or 5 lbs in one week Increased weakness/fatigue Patient Needs to Remember: Call [facility] at [phone] with any red flags, changes in condition, or concerns. Referrals Needed: N/A Follow Up: Is there cellular connectivity/connectivity in the home? Yes Does the patient have internet in the home? Yes Patient encouraged to call the intake phone number for all urgent but not emergent issues. CHW to see pt in one week for vitals, EDIS #2. Dr Calvo scheduled to see pt again on 04/09/24. Nikolay Wu RN 03/31/2024 9:14 AM documented in this encounter Plan of Treatment Upcoming Encounters Date Type Department Care Team (Late st Contact Info) Description 04/05/2024 11:00 AM EDT Imaging Vascular Lab, [facility] 2nd [facility] 132 [facility] [place] [address] 04/09/2024 10:00 AM EDT Office Visit Family [address] [facility] [address] Florentin Calvo, DO [facility] [address] 04/12/2024 8:00 AM EDT Office Visit Hematology/Oncolog y [facility] [address] [facility] [place] [address] Nereyda Metz CRNP 400 [facility] [place] [address] 04/14/2024 10:50 AM EDT Office Visit Vascular Surgery, [facility] 132 [facility] [place] [address] Aj Sahni MD [address] [place] [address] 04/20/2024 3:40 PM EDT Office Visit [address] 293 [facility] [address] Florentin Calvo, DO [address] [facility] [address] 05/21/2024 1:14 PM EDT Hospital Encounter OR [facility], Operating Room, [facility] - 4th Floor 400 [facility] [place] [address] Jana Vieira, DO 132 [facility] [place] [address] 05/21/2024 1:14 PM EDT - 05/21/2024 1:59 PM EDT Surgery OR [facility], Operating Room, [facility] - 4th Floor 400 [facility] [place] [address] Jana Vieira, DO [address] [facility] [place] [address] COLONOSCOPY FLEXIBLE PROXIMAL DIAGNOSTIC 06/03/2024 2:15 PM EDT Office Visit Ophthalmology, [facility] 132 [facility] [place] [address] Wilbur Benavides, DO [facility] [place] [address] 07/01/2024 2:30 PM EST Office Visit Gastroenterology, [facility] 132 [facility] [place] [address] Lacy Ronquillo CRNP [facility] [place] [address] 08/09/2024 1:00 PM EST Nurse Only Ancillary 65 [facility] 293 [facility], [place] [address] College, Nurse Annual Wellness Visit [address] [place] [address] Scheduled Procedures Name Priority Associated Diagnoses Date/Ti [...] COPD 07/31/2024 07/31/2023 CKD PHOS USE SMARTSET 51572 08/19/202407/26, 05/01/2022, 04/03/2022, Additional history exists Diabetic Foot Exam 09/15/2024 09/15/2023, 0 10/01/2022, 10/26/2021, Additional history exists Depression Monitoring 09/29/2024 09/29/2023 GFR 09/30/2024 03/30/2024, 02/23, 03/02/2024, Additional history exists Albumin/Creatinine Ratio 12/08/2024 024, 02/21/2023, 05/01/2022, Additional history exists TSH 03/15/2025 03/15/2024, 02/23, 12/08/2023, Additional history exists CKD HGB USE SMARTSET 65137 03/30/202503/30, 03/30/2024, 03/15/2024, Additional history exists DXA [...] this encounter Medical Devices Implanted Type Area Water And Fire Technician Device Identifier Shelf Expiration Date Model / Serial / Lot Cath Thermodilution 6fr - [id number] Implanted:Qty: 1 on 01/24/2023 by Wilbur Rivera MD at [facility] [employer] TERE [id number] 10/15/2024 [id number] / / [id number] Clip Delivery Sytem G4 Xt - [id number] Implanted:Qty: 1 on 03/10/2023 at [facility] InstallMonetizer [id number] 04/15/2023 [id number] / / [id number] Clip Delivery Sytem G4 Xtw - [id number] Implanted:Qty: 1 on 03/10/2023 at [facility] [employer] [id number] 12/06/2023 [id number] TW / / [id number] Mirtaclip G4 - [id number] Implanted:Qty: 1 on 03/10/2023 at [facility] [employer] 11/19/2023 [id number] / / [id number] Device Watchman Flx 31mm - [id number] Implanted:Qty: 1 on 07/31/2023 by Wilbur Rivera MD at [facility] globa.[email or web address] : INTRV CARD [id number] 12/02/2025 [id number] documented as of this encounter Visit Diagnoses Diagnosis Closed wedge compression fracture of T12 vertebra, initial encounter (HCC)- Primary Diarrhea, unspecified type History of diverticulitis documented in this encounter Advance Directives Documents on File Type Date 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 No * No Code Date Activated Date [...] Agents on File Name Relationship Healthcare Agent [facility] Communication Bright Barakat Adult Child Health Care Dustyn t (per Health Care Power of Rehabilitation Therapy Aide document) Care Teams Manager Environmental Relationship Specialty Start Date End Date Florentin Calvo DO [address] [facility] [place] [address] PCP - General Internal Medicine 02/06/24 documented as of this encounter
--- OUTSIDE RECORDS SUMMARY | 2024-04-13 02:11 | External Medical Summary | Summary of Care ---
Author Name Unknown Organization [facility] Address [address] [place] [address] Phone [phone] Care Team Providers Care Sporting Goods Salesperson Name Role Phone Florentin Calvo DO Primary Care Provider [phone] Reason for Visit * Reason Onset Date Comments Appointment 03/31/2024 Encounter Details Date Type Department Care Team (Late st Contact Info) Description 03/31/2024 Telephone [facility], [place] [facility] [address] [place] [address] Felicitas Starks OSA [address] [place] [address] Appointment Allergies Active Allergy Reactions [...] Dispensed Refills Start Date End Date Status [employer] w/Device KitIndications:Type 2 diabetes mellitus with hemoglobin [...] Wheezing. 15 g 12 06/13/2022 Active OneTouch VerBancore A/S In Vitro Strip (Glucose Blood) Test blood sugars up to 2 times a day E11.9 200 Strip 3 12/20/2022 Active Atorvastatin Calcium 20 MG Oral Tablet (Lipitor)Indications :PVD (peripheral vascular disease) ([facility]),Type 2 diabetes mellitus with stage 3a chronic kidney disease and hypertension ([facility]) TAKE ONE TABLET BY MOUTH EVERY DAY DIRECTED 100 Tablet 3 03/31/2023 Active Ipratropium [place] 0.03 % Nasal Solution (Atrovent)Indication s:Chronic rhinitis Administer 2 Sprays into nostril in the morning and 2 Sprays before bedtime. 90 mL 3 04/01/2023 Active Allopurinol 300 MG Oral Tablet (Zyloprim) Take 1 Tablet by mouth at bedtime. 90 Tablet 3 05/16/2023 Active Tiotropium [place]-Olodaterol 2.5-2.5 MCG/ACT Inhalation Aerosol Solution (Stiolto Respimat) [...] :Compression fracture of T12 vertebra, initial encounter ([facility]) Administer 1 spray into 1 nostril for suspected opioid overdose. Seek immediate medical attention. 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 (Household - for ages [...] or do you have serious difficulty hearing? No-[place] can hear w/ hearing aid 03/07/2023 Are [...] Telephone Encounter - Felicitas Starks OSA - 03/31/2024 4:30 PM EDT Per Request - Vital Signs - EDIS #2, is pt wearing TSLO brace? Pain level manageable? Scheduled a CHW visit with Becky Green on April 06 at 2:30 pm. Spoke wit patient's son and confirmed. documented in this encounter Plan of Treatment Upcoming Encounters Date Type Department Care Team (Late st Contact Info) Description 04/05/2024 11:00 AM EDT Imaging Vascular Lab, [facility] 2nd [facility], [place] [address] [place] [address] 04/06/2024 2:30 PM EDT Home Visit Care Coordination and Integration [address] [place] [address] Becky Green, [facility] [address] [place] [address] 04/09/2024 10:00 AM EDT Office Visit Family Practice [address], [place] [address] [place] [address] Florentin Calvo, DO 293 [facility] [place] [address] 04/12/2024 8:00 AM EDT Office Visit Hematology/Oncology [facility] 200 [facility] [place] [address] Nereyda eMtz CRNP [address] [place] [address] 04/14/2024 10:50 AM EDT Office Visit Vascular Surgery, [facility] 132 [facility] [place] [address] Aj Sahni MD [address] [place] [address] 04/20/2024 3:40 PM EDT Office Visit Family Practice [address] [place] [address] [address] [place] [address] Florentin Calvo, DO [address] [place] [address] 05/21/2024 1:14 PM EDT Hospital Encounter OR [facility], Operating Room, [facility] - 4th Floor [address] [place] [address] Jana Vieira, DO [address] [facility] [place] [address] 05/21/2024 1:14 PM EDT - 05/21/2024 1:59 PM EDT Surgery OR [facility], Operating Room, [facility] - 4th Floor 400 [place] [address] Jana Vieira, DO [address] [place] [address] COLONOSCOPY FLEXIBLE PROXIMAL DIAGNOSTIC 06/03/2024 2:15 PM EDT Office Visit Ophthalmology, [facility] [address] [place] [address] Wilbur Benavides, DO [address] [place] [address] 07/01/2024 2:30 PM EST Office Visit Gastroenterology, [facility] [address] [place] [address] Lacy Ronquillo CRNP [address] [facility] [place] [address] 08/09/2024 1:00 PM EST Nurse Only Ancillary 65 [facility] 293 [facility], [place] [address] College, Nurse Annual Wellness Visit 65 [facility] 293 [facility], [place] [address] Scheduled Procedures Name Priority Associated Diagnoses Date/Ti [...] COPD 07/31/2024 07/31/2023 CKD PHOS USE SMARTSET 88887 08/19/202407/26, 05/01/2022, 04/03/2022, Additional history exists Diabetic Foot Exam 09/15/2024 09/15/2023, 0 10/01/2022, 10/26/2021, Additional history exists Depression Monitoring 09/29/2024 09/29/2023 GFR 09/30/2024 03/30/2024, 02/23, 03/02/2024, Additional history exists Albumin/Creatinine Ratio 12/08/2024 024, 02/21/2023, 05/01/2022, Additional history exists TSH 03/15/2025 03/15/2024, 02/23, 12/08/2023, Additional history exists CKD HGB USE SMARTSET 57764 03/30/202503/30, 03/30/2024, 03/15/2024, Additional history exists DXA [...] Medical Devices Implanted Type Area Director Of Exhibit Development Device Identifier Shelf Expiration Date Model / Serial / Lot Cath Thermodilution 6fr - [id number] Implanted:Qty: 1 on 01/24/2023 by Wilbur Rivera MD at [facility] [employer] TERE [id number] 10/15/2024 [id number] / / [id number] Clip Delivery Sytem G4 Xt - [id number] Implanted:Qty: 1 on 03/10/2023 at [facility] [employer] [id number] 04/15/2023 [id number] T / / [id number] Clip Delivery Sytem G4 Xtw - [id number] Implanted:Qty: 1 on 03/10/2023 at [facility] [employer] [id number] 12/06/2023 [id number] TW / / [id number] Mirtaclip G4 - [id number] Implanted:Qty: 1 on 03/10/2023 at [facility] [employer] 11/19/2023 [id number] / / [id number] Device Watchman Flx 31mm - [id number] Implanted:Qty: 1 on 07/31/2023 by Wilbur Rivera MD at [facility] [employer] : INTRV CARD [id number] 12/02/2025 [id number] / / [id number] documented as of this encounter Advance Directives Documents on File Type Date 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 No * No Code Date Activated Date [...] Agen t (per Health Care Power of Master Technician document) Care Teams Sporting Goods Salesperson Relationship Specialty Start Date End Date Florentin Calvo DO [address] [place] [address] PCP - General Internal Medicine 02/06/24 documented as of this encounter
--- OUTSIDE RECORDS SUMMARY | 2024-04-13 02:11 | External Medical Summary | Summary of Care ---
Author Name Unknown Organization [facility] Address [address] [place] [address] Phone [phone] Care Team Providers Care Test Cell Technician Name Role Phone Florentin Calvo DO Primary Care Provider Encounter Details Date Type Department Care Team (Late st Contact Info) Description 04/06/2024 2:30 PM EDT Home Visit Care Coordination and Integration [address] [place] [address] Becky Green, Community Health Weather Strip Mechanic [address], [place] [id number] Allergies Active Allergy Reactions Criticality Noted Date [...] as of this encounter (statuses as of 04/06/2024) Medications Medication Sig Dispensed Refills Start Date End Date Status [employer] w/Device KitIndications:Type 2 diabetes mellitus with hemoglobin [...] Wheezing. 15 g 12 06/13/2022 Active OneTouch MemBlaze In Vitro Strip (Glucose Blood) Test blood sugars up to 2 times a day E11.9 200 Strip 3 12/20/2022 Active Atorvastatin Calcium 20 MG Oral Tablet (Lipitor)Indications :PVD (peripheral vascular disease) ([facility]),Type 2 diabetes mellitus with stage 3a chronic kidney disease and hypertension ([facility]) TAKE ONE TABLET BY MOUTH EVERY DAY DIRECTED 100 Tablet 3 03/31/2023 Active Ipratropium [place] 0.03 % Nasal Solution (Atrovent)Indication s:Chronic rhinitis Administer 2 Sprays into nostril in the morning and 2 Sprays before bedtime. 90 mL 3 04/01/2023 Active Allopurinol 300 MG Oral Tablet (Zyloprim) Take 1 Tablet by mouth at bedtime. 90 Tablet 3 05/16/2023 Active Tiotropium [place]-Olodaterol 2.5-2.5 MCG/ACT Inhalation Aerosol Solution (Stiolto [...] :Chronic diastolic CHF (congestive heart failure) ([facility]) Take 2 Tablets by mouth [...] fracture of T12 vertebra, initial encounter ([facility]) Administer 1 spray into 1 nostril for suspected opioid overdose. Seek immediate medical attention. [email or web address]/[email or web address] 1 Each 3 03/16/2024 Active fentaNYL 12 MCG/HR Transdermal Patch 72 HourIndications:Comp ression fracture of T12 vertebra, initial encounter ([facility]) Place 1 Patch over 72 [...] as of this encounter (statuses as of 04/06/2024) Active Problems Problem Noted Date Diagnosed Date Closed wedge compression fracture of T12 vertebr a 03/12/2024 Last Assessment & Plan: Increased oxy from 2.5mg to 5mg [id number] prn Ortho spine ref, ?kyphoplasty Constipation 03/12/2024 [...] mitral valve clip implantation 03/06/2023 Atherosclerosis of tribal 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 02/13/2023 [...] Obstructive sleep apnea of adult 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 (Household - for ages [...] Sign Reading Time Taken Comments Blood Pressure 100/50 04/06/2024 3:12 PM EDT Pulse 77 04/06/2024 3:12 PM EDT Temperature 36.4 C (97.5 F) 04/06/2024 3:12 PM ED T Respiratory Rate - - Oxygen Saturation 94% 04/06/2024 3:12 PM EDT Inhaled Oxygen Concentration - - Weight - - Height - - Body Mass Index - - documented in this encounter Functional Status Functional Status Response Date of Assess ment Are you deaf or do you have serious difficulty hearing? No-ABSENTEE-SHAWNEE can hear w/ hearing aid 03/07/2023 Are [...] as of this encounter Progress Notes * Becky Green, Community Health Weather Strip Mechanic - 04/06/2024 2:48 PM EDT Telemedicine visit: No Community Health Weather Strip Mechanic (TRU) documentation: CHW facilitated home visit with patient and patient's daughter and spouse. Spouse did not participate much. Patient reported that she is not wearing the TSLO brace at all. It is very uncomfortable and therefore she is not wearing it. She cannot sit and be comfortable with it on, she cannot walk around and be comfortable with it on so she is not wearing it. Her pain is under control, daughter is helping her with this. She is taking half dose of Oxycodone when needs it, daughter reports is taking this only at night before bed. Is taking Tylenol every 6 hrs during the day. Daughter has her on a plan that keeps her pain managed. Is using the Fentanyl patch as well and they are working. Daughter is staying with her for the time being until patient is safe to be on her own. Patient is not sure how longshe is staying. CHW reviewed red flags with patient and upcoming appointments. Becky Green- Community Health Worker 1 Support Services/[facility] [employer] [facility] [email or web address] documented in this encounter Plan of Treatment Upcoming Encounters Date Type Department Care Team (Late st Contact Info) Description 04/09/2024 10:00 AM EDT Office Visit Family Practice [address] [place] [address] [address] [place] [address] Florentin Calvo, [address] [place] [address] 04/12/2024 8:00 AM EDT Office Visit Hematology/Oncolog y [facility] [address] [place] [phone] Nereyda Metz CRNP [address], [place] [id number] 04/14/2024 10:50 AM EDT Office Visit Vascular Surgery, [facility] [address] [place] [address] Aj Sahni MD [address] [place] [address] 04/20/2024 3:40 PM EDT Office Visit Family Practice [address] [place] [address] [address] [place] [address] Florentin Calvo, [address] [place] [address] 05/21/2024 12:46 PM EDT Hospital Encounter OR [facility], Operating [facility] - 4th Floor [address], [place] [id number] Jana Vieira, DO [facility] [address] 05/21/2024 12:46 PM EDT - 05/21/2024 1:31 PM EDT Surgery OR [facility], Operating Room, [facility] - 4th Floor [address] [facility] [place] [address] Jana Vieira, DO [address] [place] [address] COLONOSCOPY FLEXIBLE PROXIMAL DIAGNOSTIC 06/03/2024 2:15 PM EDT Office Visit Ophthalmology, [facility] [address] [place] [address] Wilbur Benavides, DO [address] [facility] [place] [address] 07/01/2024 2:30 PM EST Office Visit Gastroenterology, [facility] [address] [place] [address] Lacy Ronquillo CRNP [address] [place] [address] 08/09/2024 1:00 PM EST Nurse Only Ancillary [facility] 293 [facility], [place] [address] College, Nurse Annual Wellness Visit [address], [place] [address] Scheduled Procedures Name Priority Associated Diagnoses Date/Ti [...] COPD 07/31/2024 07/31/2023 CKD PHOS USE SMARTSET 46848 08/19/202407/26, 05/01/2022, 04/03/2022, Additional history exists Diabetic Foot Exam 09/15/2024 09/15/2023, 0 10/01/2022, 10/26/2021, Additional history exists Depression Monitoring 09/29/2024 09/29/2023 GFR 09/30/2024 03/30/2024, 02/23, 03/02/2024, Additional history exists Albumin/Creatinine Ratio 12/08/2024 024, 02/21/2023, 05/01/2022, Additional history exists TSH 03/15/2025 03/15/2024, 02/23, 12/08/2023, Additional history exists CKD HGB USE SMARTSET 78252 03/30/202503/30, 03/30/2024, 03/15/2024, Additional history exists DXA [...] this encounter Medical Devices Implanted Type Area Warble Saw Operator Device Identifier Shelf Expiration Date Model / Serial / Lot Cath Thermodilution 6fr - [id number] Implanted:Qty: 1 on 01/24/2023 by Wilbur Rivera MD at [facility] [place] [employer] [id number] 10/15/2024 [id number] / / [id number] Clip Delivery Sytem G4 Xt - [id number] Implanted:Qty: 1 on 03/10/2023 at [facility] [employer] [id number] 04/15/2023 [id number] / / [id number] Clip Delivery Sytem G4 Xtw - [id number] Implanted:Qty: 1 on 03/10/2023 at [facility] [employer] [id number] 12/06/2023 [id number] / / [id number] [employer] G4 - [id number] Implanted:Qty: 1 on 03/10/2023 at [facility] [employer] 11/19/2023 [id number] / / [id number] Device Watchman Flx 31mm - [id number] Implanted:Qty: 1 on 07/31/2023 by Wilbur Rivera MD at [facility] [place] [employer] : [employer] C[employer] [id number] 12/02/2025 [id number] documented as of this encounter Advance Directives Documents on File Type Date Recorded Patient Location Director Expl anation Advance Directives and Living Will 11/29/2022 ADVANCE DIRECTIVE / LIVING WILL Power of Engine Watchman 11/29/2022 POWER OF A TTORNEY Advance Directives and Living Will 10/24/2014 ADVANCE DIRECTIVE / LIVING WILL Power of Engine Watchman 10/24/2014 POWER OF A TTORNEY * Full [...] the patient have Health Care Power of Engine Watchman? No * No Code Date Activated Date [...] on File Name Relationship Healthcare Agent [facility] Adult Child Health Care Agen t (per Health Care Power of Engine Watchman document) Care Teams Test Cell Technician Relationship Specialty Start Date End Date Florentin Calvo DO [address] [facility] [place] [address] PCP - General Internal Medicine 02/06/24 documented as of this encounter
--- OUTSIDE RECORDS SUMMARY | 2024-04-13 02:11 | External Medical Summary | Summary of Care ---
Author Name Unknown Organization [facility] Address [address] [place] [address] Phone [phone] Care Team Providers Care Agricultural Commodities Grader Name Role Phone Florentin Calvo DO Primary Care Provider [phone] Reason for Visit * Reason Comments Dosage Adjustment In Person (Anticoag Cl inic) Medication Management Encounter Details Date Type Department Care Team (Late st Contact Info) Description 03/30/2024 11:00 AM EDT Pharmacy Family Practice 65 [facility] [address] [place] [id number] College, Pharmacist [address] [address] Medication management*; Closed fracture of multiple ribs of left [...] as of this encounter (statuses as of 04/05/2024) Medications Medication Sig Dispensed Refills Start Date [...] Oral Tablet (Lipitor)Indicatio ns:PVD (peripheral vascular disease) ([facility]),Type 2 diabetes mellitus with stage 3a chronic kidney disease and hypertension ([facility]) TAKE ONE TABLET BY MOUTH EVERY DAY DIRECTED 100 Tablet 3 3 Active Ipratropium [place] 0.03 % Nasal Solution (Atrovent)Indicati ons:Chronic rhinitis Administer 2 Sprays into nostril in the morning and 2 Sprays before bedtime. 90 mL 3 3 Active Allopurinol 300 MG Oral Tablet (Zyloprim) Take 1 Tablet by mouth at bedtime. 90 Tablet 3 3 Active Tiotropium [place]-Olodaterol 2.5-2.5 MCG/ACT Inhalation Aerosol Solution (Stiolto Respimat) Inhale 2 Puffs by mouth in the morning. 12 g 3 3 Active Montelukast Sodium 10 MG Oral Tablet (Singulair)Indicat ions:Moderate persistent asthma without complication TAKE ONE TABLET BY MOUTH AT BEDTIME 100 Tablet 3 4 025 Active Sertraline HCl 100 MG Oral Tablet (Zoloft) Take one and one-half Tablets by mouth in the morning. 150 Tablet 3 4 Active Metoprolol Succinate ER 25 MG Oral Tablet Extended Release 24 Hour (toPROL XL)Indications:Par oxysmal atrial fibrillation ([facility]) Take 1 Tablet by mouth in the morning and 1 Tablet before bedtime. 200 Tablet 3 4 Active Acetaminophen 500 MG Oral Tablet (Tylenol) Take 2 Tablets by mouth every 6 hours as needed. Max 6 tablets per day (3000 mg) Active Pantoprazole Sodium 40 MG Oral Tablet Delayed Release (Protonix) Take 1 Tablet by mouth in the morning and 1 Tablet by mouth in the evening. 200 Tablet 1 4 Active Torsemide 10 MG Oral Tablet (Demadex)Indicatio ns:Chronic diastolic CHF (congestive heart failure) ([facility]) Take 2 Tablets by mouth in the morning. 200 Tablet 3 4 Active Polyethylene Glycol 3350 17 GM/SCOOP Oral Powder (MiraLax) Take 17 g by mouth in the morning and 17 g before bedtime. Dissolve one heaping tablespoon in 8 ounces of water or juice.. 4 Active Additional Information Patient not taking.Reported on 03/30/2024 Naloxone HCl 4 MG/0.1ML NA LIQD FOR CAREGIVERIndicatio ns:Compression fracture of T12 vertebra, initial encounter ([facility]) Administer 1 spray into 1 nostril for suspected opioid overdose. Seek immediate medical attention. [email or web address]/[email or web address]? [email or web address] 1 Each 3 4 025 Active fentaNYL 12 MCG/HR Transdermal Patch 72 HourIndications:Co mpression fracture of T12 vertebra, initial encounter ([facility]) Place 1 Patch over 72 hours topically on the skin every 3 days. For pain control. 10 Patch 4 Active Levothyroxine Sodium 175 MCG Oral Tablet (Levoxyl)Indicatio ns:Acquired hypothyroidism Take 1 Tablet by mouth daily first thing in the morning. 90 Tablet 3 4 Active Aspirin 81 MG Oral Tablet Delayed Release Take 1 Tablet by mouth in the morning. Active oxyCODONE HCl 5 MG Oral Tablet (Oxy IR)Indications:Stephanie sed fracture of multiple ribs of left side with routine healing, subsequent encounter Take 1 Tablet by mouth every 6 hours as needed for Pain, Breakthrough. 4 Active Folic Acid 1 MG Oral TabletIndications: Chronic atrial fibrillation (HCC) TAKE ONE TABLET BY MOUTH EVERY MORNING 100 Tablet 1 4 024 Discontinued(Me dication/Dose Changed) Cetirizine HCl 10 MG Oral Tablet (ZyrTEC) Take 1 Tablet by mouth in the morning. 4 024 Discontinued(Me dication/Dose Changed) Melatonin 3 MG Oral Capsule Take 1 Capsule by mouth at bedtime. 024 Discontinued(Me dication/Dose Changed) Vitamin B-12 100 MCG Oral Tablet (vitamin B-12)Indications:B 12 deficiency Take 1 Tablet by mouth in the morning. 90 Tablet 3 4 024 Discontinued(Me dication/Dose Changed) Apixaban 2.5 MG Oral Tablet (Eliquis)Indicatio ns:Paroxysmal atrial fibrillation (HCC) Take 1 Tablet by mouth in the morning and 1 Tablet before bedtime. 60 Tablet 2 4 024 Discontinued(Me dication/Dose Changed) oxyCODONE HCl 5 MG Oral Tablet (Oxy IR)Indications:Stephanie sed fracture of multiple ribs of left side with routine healing, subsequent encounter Take 0.5 Tablets by mouth every 6 hours as needed for Pain, Breakthrough. 30 Tablet 4 024 Discontinued Ferrous Sulfate 325 (65 Fe) MG Oral Tablet Delayed Release Take 1 Tablet by mouth daily. 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 & Plan: Now just [...] as of this encounter (statuses as of 04/05/2024) Resolved Problems Problem Noted Date Diagnosed Date [...] as of this encounter (statuses as of 04/05/2024) Immunizations Name Administration Dates Next Due COVID-19 mRNA, LNP-s, No Pre serve, 2-Dose Series (Moderna) 06/23/2021,10/25/2020,09/28/2020 COVID-19, LNP-s, No Preserve , Larry-sucrose, Ages 12+ (Pfizer) 04/09/2022 COVID-19, MRNA-LNP, 23-24, P F, 30 MCG/0.3 mL, 12 YRS AND ABOVE, IM ([facility]) 06/09/2023 Covid-19, Mrna, Lnp-s, Pf, B ivalent, 30 Mcg, IM, 12 yrs and above ([employer]) 09/10/2022 HEP A - Hepatitis A (Adult [...] or do you have serious difficulty hearing? No-[place] can hear w/ hearing aid 03/07/2023 [...] of this encounter Progress Notes * Veronique Batistab, [facility] - 03/30/2024 11:04 AM EDT Images from the original note were not included. Medication Therapy [facility] - Medication Reconciliation Encounter Type: discussed with patient Med Rec Reason: EDIS Prescription insurance information: JEANETTE Stacy Do you have any other prescription coverage: No Preferred pharmacy: [facility] ([facility]) [x] Problem list reviewed [x] Allergies reviewed and updated if needed [x] Drug interaction check completed [x] HEDIS list addressed Immunizations: Up to Date Date of Hospital Admission/Primary Diagnosis: 03/21/24 - diarrhea and pain Date of Discharge from Hospital: 03/25/24 Medication changes during admission/on discharge: Added: aspirin 81 mg (to replace eliquis), ferrous sulfate, and Dificid (not covered, did not start) Modified: oxycodone increased from 2.5mg Q6H to 5mg Q6H Discontinued: eliquis 2.5 mg Does the patient currently have all of their medications in their home?: No Medication Organization/Adherence: Has home care nurse or caregiver: yes -family helping and has youcalcisingInnovacene at home Patient uses a pill box? Yes, refill(s) completed by child When you are at home, how often do you miss doses of medications? Less than once a week How difficult is it for you to pay for your medications? Not difficult at all How often do you experience side effects from your medications? Daily Reports specifically being very tired and few BM due to opioids and iron tablets Labs/Vitals/Risk Scores: The ASCVD Risk score ([place] DK, et al., 2019) failed to calculate for the following reasons: The 2019 ASCVD risk score is only valid for ages 40 to 79 The patient has a prior OK or stroke diagnosis BP Readings from Last 3 Encounters: 03/30/24 114/74 03/15/24 114/54 03/10/24 120/50 Recent Labs Units 12/08/23 1520 08/15/23 0000 02/21/23 1231 [facility] % 6.8* -- 6.5* HEMOGLOBIN, [id number] -- 6.8* -- Recent Labs Units 03/15/24 1709 03/02/24 1031 02/24/24 1606 ESTIMATED GLOMERULAR FILTRATION RATE - [facility] mL/min 20* 22* 28* Serum creatinine: 2.3 mg/dL (H) 03/15/24 1709 Estimated creatinine clearance: 18.5 mL/min (A) Assessment & Plan: Medication discrepancies identified: updated per patient account at home. Dose/frequency of medications appropriate for current renal function? Need to use caution with painmeds, especially given patient's kidney function. Other medication problems identified: uncontrolled pain. Family had been asking about additional oxycodone. Discussed risks of that and identified patient stopped acetaminophen. Patient education provided: Discussed that patient has fentanyl patch on for chronic relief. Then if having pain, reach for acetaminophen next (and potentially schedule it for now), then if still having pain to use 1/2-1 oxycodone. Rather than scheduling the oxycodone. - Also discussed s/sx of opioid overdose and when to use naloxone. Referral pended for follow up management of: N/A Summary- Changes & Recommendations: Med rec completed with patient and son. I spent a total of 20-29 minutes (exact time 22 mins) on the date of service in preparation, delivery, and documentation of the care provided to Inga Barakat excluding any time spent in the performance of separately billed services or time spent by another provider/QHP. Veronique Nye [facility] Clinical Pharmacist - Internet Security Specialist Medication Therapy Management Clinic 03/30/2024, 11:07 AM Inpatient oxycodone doses: documented in this encounter Plan of Treatment Upcoming Encounters Date Type Department Care Team (Late st Contact Info) Description 04/06/2024 2:30 PM EDT Home Visit Care Coordination and Integration [address] [place] [facility] [place] [address] [facility] Torch Solderer [address] [facility] [address] 04/09/2024 10:00 AM EDT Office Visit Family Practice [address] [place] [phone] Florentin Calvo, DO 293 [place] [address] 04/12/2024 8:00 AM EDT Office Visit Hematology/Oncology [facility] [address] [place] [address] Nereyda Metz CRNP [address] [place] [address] 04/14/2024 10:50 AM EDT Office Visit Vascular Surgery, [facility] [address] Aj Sahni MD [address] [place] [address] 04/20/2024 3:40 PM EDT Office Visit Family Practice [address] [place] [address] 293 [place] [address] Florentin Calvo, DO 293 [place] [address] 05/21/2024 12:46 PM EDT Hospital Encounter OR [facility], Operating Room, [facility] - 4th Floor [address] [place] [address] Jana Vieira, DO [address] [facility] [place] [address] 05/21/2024 12:46 PM EDT - 05/21/2024 1:31 PM EDT Surgery OR [facility], Operating Room, [facility] - 4th Floor 400 [place] [address] Jana Vieira, DO [address] [facility] [place] [address] COLONOSCOPY FLEXIBLE PROXIMAL DIAGNOSTIC 06/03/2024 2:15 PM EDT Office Visit Ophthalmology, [facility] [address] [facility] [place] [address] Wilbur Benavides, DO [address] [place] [address] 07/01/2024 2:30 PM EST Office Visit Gastroenterology, [facility] [address] [facility] [place] [address] Lacy Ronquillo CRNP 132 [facility] [place] [address] 08/09/2024 1:00 PM EST Nurse Only Ancillary 65 [facility] 293 [place] [address] College, Nurse Annual Wellness Visit [address] [place] [address] Scheduled Procedures Name Priority Associated Diagnoses Date/Ti [...] COPD 07/31/2024 07/31/2023 CKD PHOS USE SMARTSET 47950 08/19/202407/26, 05/01/2022, 04/03/2022, Additional history exists Diabetic Foot Exam 09/15/2024 09/15/2023, 0 10/01/2022, 10/26/2021, Additional history exists Depression Monitoring 09/29/2024 09/29/2023 GFR 09/30/2024 03/30/2024, 02/23, 03/02/2024, Additional history exists Albumin/Creatinine Ratio 12/08/2024 024, 02/21/2023, 05/01/2022, Additional history exists TSH 03/15/2025 03/15/2024, 02/23, 12/08/2023, Additional history exists CKD HGB USE SMARTSET 94014 03/30/202503/30, 03/30/2024, 03/15/2024, Additional history exists DXA [...] this encounter Medical Devices Implanted Type Area Pediatrician/Medical Doctor Device Identifier Shelf Expiration Date Model / Serial / Lot Cath Thermodilution 6fr - [id number] Implanted:Qty: 1 on 01/24/2023 by Wilbur Rivera MD at [facility] [employer] [id number] 10/15/2024 [id number] / / [id number] Clip Delivery Sytem G4 Xt - [id number] Implanted:Qty: 1 on 03/10/2023 at [facility] [employer] [id number] 04/15/2023 [id number] T / / [id number] Clip Delivery Sytem G4 Xtw - [id number] Implanted:Qty: 1 on 03/10/2023 at [facility] [employer] [id number] 12/06/2023 [id number] / / [id number] Mirtaclip G4 - [id number] Implanted:Qty: 1 on 03/10/2023 at [facility] [employer] 11/19/2023 [id number] / / [id number] Device Watchman Flx 31mm - [id number] Implanted:Qty: 1 on 07/31/2023 by Wilbur Rivera MD at [facility] [employer] : INTRV CARD [id number] 12/02/2025 [id number] / [id number] documented as of this encounter Visit Diagnoses Diagnosis Medication management- Primary Encounter for long-term (current) use of other medications Closed fracture of multiple ribs of left side with routine healing, subsequent encounter Diarrhea, unspecified type History of diverticulitis documented in this encounter Advance Directives Documents on File Type Date Recorded Patient Cheese Cooker Expl anation Advance Directives and Living Will 11/29/2022 ADVANCE DIRECTIVE / LIVING WILL Power of Burlap Roll Coverer 11/29/2022 POWER OF A TTORNEY Advance Directives and Living Will 10/24/2014 ADVANCE DIRECTIVE / LIVING WILL Power of Burlap Roll Coverer 10/24/2014 POWER OF A TTORNEY * Full [...] the patient have Health Care Power of Burlap Roll Coverer? No * No Code Date Activated Date [...] [facility] p Communication [facility] Adult Child Health Care Agen t (per Health Care Power of Burlap Roll Coverer document) Care Teams Agricultural Commodities Grader Relationship Specialty Start Date End Date Florentin Calvo DO [address] [place] [facility] [place] [address] PCP - General Internal Medicine 02/06/24 documented as of this encounter
--- OUTSIDE RECORDS SUMMARY | 2024-04-13 02:12 | External Medical Summary ---
Author Name Unknown Address Unknown Organization K01:[facility] [place] [address] [facility] [address] Laboratory Report Ordering Provider Test Date Status ANTONIO EDMONDS 03/30/2024 11:55:44 Final Observation Date Value Abnormality Reference (Units ) Status Ferritin 03/30/2024 11:55:44 615 Above high normal 13 -150 (ng/mL) Final Postmenopausal women have hi gher ferritin levels than pre-menopausal women. The above reference interval is based on pre-menopausal women. Performing Location [facility] [place] [address] [facility] [address]
--- OUTSIDE RECORDS SUMMARY | 2024-04-13 02:12 | External Medical Summary | Summary of Care ---
Author Name Unknown Organization [facility] Address [address] [place] [address] Phone [phone] Care Team Providers Care Barge Pilot Name Role Phone Florentin Calvo DO Primary Care Provider [phone] Reason for Visit * Reason Onset Date Comments Appointment 03/29/2024 Encounter Details Date Type Department Care Team (Late st Contact Info) Description 03/29/2024 Telephone [facility], [facility] [address] [place] [address] Services, Scheduling [address] [place] [address] Appointment (//) Allergies Active Allergy Reactions Criticality [...] as of this encounter (statuses as of 03/29/2024) Medications Medication Sig Dispensed Refills Start Date End Date Status COCCTouch Verio w/Device KitIndications:Type 2 diabetes mellitus with [...] Oral Tablet (Lipitor)Indications :PVD (peripheral vascular disease) ([facility]),Type 2 diabetes mellitus with stage 3a chronic kidney disease and hypertension ([facility]) TAKE ONE TABLET BY MOUTH EVERY DAY DIRECTED 100 Tablet 3 03/31/2023 Active Ipratropium [place] 0.03 % Nasal Solution (Atrovent)Indication s:Chronic rhinitis Administer 2 Sprays into nostril in the morning and 2 Sprays before bedtime. 90 mL 3 04/01/2023 Active Allopurinol 300 MG Oral Tablet (Zyloprim) Take 1 Tablet by mouth at bedtime. 90 Tablet 3 05/16/2023 Active Tiotropium [place]-Olodaterol 2.5-2.5 MCG/ACT Inhalation Aerosol Solution (Stiolto Respimat) [...] ression fracture of T12 vertebra, initial encounter ([facility] [...] as of this encounter (statuses as of 03/29/2024) Active Problems Problem Noted Date Diagnosed Date Compression fracture of T12 vertebra 03/12/2024 Last Assessment & Plan: Increased oxy from 2.5mg to 5mg e5lfoab prn Ortho spine ref, ?kyphoplasty Constipation 03/12/2024 [...] mitral valve clip implantation 03/06/2023 Atherosclerosis of [place] 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 02/13/2023 [...] Obstructive sleep apnea of adult 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 Called s/w rep she advised referral went to [facility] called [phone] s/w rep she advised they are still working on order and to call back in a couple ofdays. documented in this encounter Plan of Treatment Upcoming Encounters Date Type Department Care Team (Late st Contact Info) Description 03/30/2024 11:20 AM EDT Office Visit Family Practice 65 [facility] [address] [place] [address] Florentin Calvo, DO [address] [place] [address] 03/31/2024 9:45 AM EDT Scheduled Telephone [facility], [facility] [address] [place] [address] Coordinator, [facility] [address] [place] [address] 03/31/2024 2:30 PM EDT Home Visit [facility], [facility] [address] [place] [address] Nikolay Wu, RN [address] [place] [address] 04/05/2024 11:00 AM EDT Imaging Vascular Lab, [facility]nd [facility] 132 [facility] [place] [address] 04/12/2024 8:00 AM EDT Office Visit Hematology/Oncolog y [facility] [address] [place], [place] [address] Nereyda Metz, JESS 400 [place] [address] 04/14/2024 10:50 AM EDT Office Visit Vascular Surgery, [facility] 132 [facility] [place] [address] Aj Sahni MD [address] [place] [address] 04/20/2024 3:40 PM EDT Office Visit Family Practice [address] [place] [address] [facility], [place] [address] Florentin Calvo, DO 293 [facility], [place] [address] 05/21/2024 1:14 PM EDT Hospital Encounter OR [facility], Operating Room, [facility] - 4th Floor [address] [facility] [address] Jana Vieira, DO [address] [place] [address] 05/21/2024 1:14 PM EDT - 05/21/2024 1:59 PM EDT Surgery OR [facility], Operating Room, [facility] - 4th Floor [address] [place] [address] Jana Vieira, DO [address] [place] [address] COLONOSCOPY FLEXIBLE PROXIMAL DIAGNOSTIC 06/03/2024 2:15 PM EDT Office Visit Ophthalmology, [facility] 132 [facility] [place] [address] Wilbur Benavides, DO [address] [facility] [place] [address] 07/01/2024 2:30 PM EST Office Visit Gastroenterology, [facility] [place] [address] Lacy Ronquillo CRNP [address] [place] [address] 08/09/2024 1:00 PM EST Nurse Only Ancillary 65 [facility] 293 [place] [address] College, Nurse Annual Wellness Visit [address] [place] [address] Scheduled Procedures Name Priority Associated Diagnoses Date/Ti me COLONOSCOPY FLEXIBLE PROXIMA L DIAGNOSTIC Diarrhea, unspecified type History of diverticulitis 05/21/2024 1:14 PM EDT ESOPHAGOGASTRODUODENOSCOPY ( EGD), FLEXIBLE, TRANSORAL, DIAGNOSTIC Diarrhea, unspecified type History of diverticulitis 05/21/2024 1:14 PM EDT Health Maintenance Due Date Last Done Comments Alpha-1 Antitrypsin 1958 COVID-19 Vaccine ( season) 2023 06/09/2023, 09/10/2022, 04/09/2022, Additional history exists Influenza Vaccine (FLU shot) (#1) 2024 05/13/2023, 05/15/2022, 05/22/2021, Additional history exists Diabetic Eye Exam 05/22/2024 05/22/2023, , 05/22/2023, Additional history exists HbA1c 06/08/2024 12/08/2023, 07/26, 02/21/2023, Additional history exists O2 ASSESSMENT COMPLETED IN PAST YEAR FOR COPD 07/31/2024 07/31/2023 CKD PHOS USE SMARTSET 98851 08/19/202407/26, 05/01/2022, 04/03/2022, Additional history exists Diabetic Foot Exam 09/15/2024 09/15/2023, 0 10/01/2022, 10/26/2021, Additional history exists GFR 09/15/2024 03/15/2024, 07/0 04/2024, 02/24/2024, Additional history exists Depression Monitoring 09/29/2024 09/29/2023 Albumin/Creatinine Ratio 12/08/2024 024, 02/21/2023, 05/01/2022, Additional history exists CKD HGB USE SMARTSET 89000 03/15/202503/15, 03/15/2024, 03/02/2024, Additional history exists TSH [...] encounter Medical Devices Implanted Type Area Director Speech Language Device Identifier Shelf Expiration Date Model / Serial / Lot Cath Thermodilution 6fr - [id number] Implanted:Qty: 1 on 01/24/2023 by Wilbur Rivera MD at [facility] [employer] [id number] 10/15/2024 [id number] / / [id number] Clip Delivery Sytem G4 Xt - [id number] Implanted:Qty: 1 on 03/10/2023 at [facility] [employer] [id number] 04/15/2023 [id number] T / / [id number] Clip Delivery Sytem G4 Xtw - [id number] Implanted:Qty: 1 on 03/10/2023 at [facility] [employer] [id number] 12/06/2023 [id number] TW / / [id number] Mirtaclip G4 - [id number] Implanted:Qty: 1 on 03/10/2023 at [facility] [employer] 11/19/2023 [id number] / / [id number] Device Watchman Flx 31mm - [id number] Implanted:Qty: 1 on 07/31/2023 by Wilbur Rivera MD at [facility] [employer] : INTRV CARD [id number] 12/02/2025 [id number] / / [id number] documented as of this encounter Advance Directives Documents on File Type Date 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 No * No Code Date Activated Date [...] Name Relationship Healthcare Agent [facility] Communication [facility] Adult Child Health Care Agen t (per Health Care Power of Community Health Advisor document) Care Teams Barge Pilot Relationship Specialty Start Date End Date Florentin Calvo DO [address] [place] [address] PCP - General Internal Medicine 02/06/24 documented as of this encounter
--- OUTSIDE RECORDS SUMMARY | 2024-04-13 02:12 | External Medical Summary ---
Author Name Unknown Address Unknown Organization [id number]:[facility] [place] [address] [facility] [address] Laboratory Report Ordering Provider Test Date Status ANTONIO EDMONDS 03/30/2024 11:55:44 Final Observation Date Value Abnormality Reference (Units ) Status WBC, Total 03/30/2024 11:55:44 8.50 4.00-10.80 (K/uL) Final RBC 03/30/2024 11:55:44 3.51 3.85-5.15 (M/uL) Final Hemoglobin 03/30/2024 11:55:44 10.7 Below low normal 12.0-15.3 (g/dL) Final HCT 03/30/2024 11:55:44 33.6 Below low normal 36.0-45.2 (%) Final MCV 03/30/2024 11:55:44 95.7 81.5-97.5 (fL) Final MCH 03/30/2024 11:55:44 30.5 27.0-34.0 (pg) Final MCHC 03/30/2024 11:55:44 31.8 32.0-36.0 (g/dL) Final RDW 03/30/2024 11:55:44 16.7 11.5-15.5 (%) Final Platelets 03/30/2024 11:55:44 229 140-400 (K/uL) Final MPV 03/30/2024 11:55:44 10.4 6.6-11.1 (fL) Final Nucleated erythrocytes/100 leukocytes [Ratio] in Blood by Automated count 03/30/2024 11:55:44 0 <=0 (/100 WBCs) Final Performing Location [facility] [place] [address] [facility] [id number]
--- OUTSIDE RECORDS SUMMARY | 2024-04-13 02:12 | External Medical Summary ---
Author Name Unknown Address Unknown Organization [id number][place] [place] [address] [id number] Laboratory Report Ordering Provider Test Date Status ANTONIO EDMONDS 03/30/2024 11:55:44 Final Observation Date Value Abnormality Reference (Units ) Status Iron 03/30/2024 11:55:44 47 33-151 (ug /dL) Final Iron-binding capacity 03/30/2024 11:55:44 262 250-425 (ug/dL) Final Transferrin Sat % 03/30/2024 11:55:44 18 15 -55 (%) Final Performing Location [facility] [place] [address] [facility] [address]
--- OUTSIDE RECORDS SUMMARY | 2024-04-13 02:12 | External Medical Summary | Summary of Care ---
Author Name Unknown Organization [facility] Address [address] [place] [address] Phone [phone] Care Team Providers Care Jacquard Lace Weaver Name Role Phone Florentin Calvo DO Primary Care Provider [phone] Reason for Visit * Reason Onset Date Comments Hospital Follow-Up Hospital Follow-Up 03/30/2024 Encounter Details Date Type Department Care Team (Late st Contact Info) Description 03/30/2024 11:20 AM EDT Office Visit Family Practice [facility] [address] [place] [address] Florentin Calvo DO [address] [place] [address] Closed wedge compression fracture of T12 vertebra with routine healing, subsequent encounter*; Type 2 diabetes mellitus with stage 3b chronic kidney disease, without long-term current use of insulin (HCC); Paroxysmal atrial fibrillation (HCC); Drug-induced constipation; Iron deficiency anemia due to chronic blood loss; Pulmonary hypertension (HCC); PVD (peripheral vascular disease) ([facility]); Acquired hypothyroidism; Obstructive sleep apnea of adult; Tremor; Angiodysplasia of colon with hemorrhage; Current moderate episode of major depressive disorder without prior episode ([facility]); Moderate persistent asthma without complication; Pure hypercholesterolemia; Cardiac pacemaker in situ; History of endometrial cancer; Atherosclerosis of la posta coronary artery of la posta heart without angina pectoris; S/P mitral valve clip implantation; Presence of Watchman left atrial appendage closure device; Nocturnal hypoxemia; Chronic obstructive pulmonary disease, unspecified COPD type (HCC); 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 claudication; Hospital discharge follow-up Allergies Active Allergy Reactions [...] as of this encounter (statuses as of 03/30/2024) Medications Medication Sig Dispensed Refills Start Date [...] DIRECTED 100 Tablet 3 3 Active Ipratropium Plano 0.03 % Nasal Solution (Atrovent)Indicati ons:Chronic rhinitis Administer 2 Sprays into nostril in the morning and 2 Sprays before bedtime. 90 mL 3 3 Active Allopurinol 300 MG Oral Tablet (Zyloprim) Take 1 Tablet by mouth at bedtime. 90 Tablet 3 3 Active Tiotropium Plano-Olodaterol 2.5-2.5 MCG/ACT Inhalation Aerosol Solution (Stiolto Respimat) [...] 24 Hour (toPROL XL)Indications:Par oxysmal atrial fibrillation ([facility]) Take 1 Tablet by mouth [...] ns:Compression fracture of T12 vertebra, initial encounter ([facility]) Administer 1 spray into 1 nostril for suspected opioid overdose. Seek immediate medical attention. [email or web address] 1 Each 3 4 025 Active fentaNYL 12 MCG/HR Transdermal Patch 72 HourIndications:Co mpression fracture of T12 vertebra, initial encounter ([facility]) Place 1 Patch over 72 hours topically on the skin every 3 days. For pain control. 10 Patch 4 Active Levothyroxine Sodium 175 MCG Oral Tablet (Levoxyl)Indicatio ns:Acquired hypothyroidism Take 1 Tablet by mouth daily first thing in the morning. 90 Tablet 3 4 Active Senna-Docusate Sodium 8.6-50 MG Oral TabletIndications: Drug-induced constipation Take 1 Tablet by mouth at bedtime. 100 Tablet 3 4 Active Folic Acid 1 MG Oral [...] Tablet 3 4 024 Discontinued(Me dication/Dose Changed) oxyCODONE HCl 5 MG Oral Tablet (Oxy IR)Indications:Stephanie sed fracture of multiple ribs of left side with routine healing, subsequent encounter Take 0.5 Tablets by mouth every 6 hours as needed for Pain, Breakthrough. 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 (Household - for ages [...] Sign Reading Time Taken Comments Blood Pressure 114/74 03/30/2024 10:59 AM EDT Pulse 82 03/30/2024 10:59 AM EDT Temperature 35.9 C (96.7 F) 03/30/2024 10:59 AM E DT Respiratory Rate 20 03/30/2024 10:59 AM EDT Oxygen Saturation 95% 03/30/2024 10:59 AM EDT Inhaled Oxygen Concentration - - Weight 72.3 kg (159 lb 8 oz) 03/30/2024 10:59 AM EDT Height 165.1 cm (5' 5") 03/30/2024 10:59 AM EDT Body Mass Index 26.54 03/30/2024 10:59 AM EDT documented in this encounter Functional Status Functional Status Response Date of Assess ment Are you deaf or do you have serious difficulty hearing? No-[place] can hear w/ hearing aid 03/07/2023 Are [...] encounter Progress Notes * Florentin Calvo, - 03/30/2024 11:44 AM EDT SUBJECTIVE: Inga Barakat is a 83 year old female. Chief Complaint Patient presents with Hospital Follow-Up Hospital Follow-Up Recent Admission: Patient was recently admitted to [facility]. The date of discharge was 03/25/2024. Discharge report received and reviewed. HPI: Patient is an 83 year old female with a history of Atrial FIbrillation, Pacemaker Implant, Severe Mitral Regurgitation repaired with mitral valve clip, Watchman Atrial Appendage Closure Device placedon 07/31/2023, Severe tricuspid Valve Regurgitation, Pulmonary HTN, CKD stage III, Lumbar Spinal Fusion, Asthma, TIA, Essential Tremor, Adenocarcinoma of the Uterus treated with Hysterectomy, Iron Deficiency Anemia due to chronic GI blood loss, and Chronic Diastolic CHF that is seen for hospital follow up. The patient was admitted for uncontrolled back pain from T-12 compression fracture. Spine Surgery recommended conservative care. Back brace was ordered for the patient. Pain has improved and Physical Therapy is working with the patient two times a week. Apixaban was stopped and ASA started. Diarrhea has improved. Patient has constipation due to taking Oxycodone and Ferrous Sulfate. Patienthas fatigue and is sleeping al lot since starting pain medication. Chronic shortness of breath is stable and no chest pain is present. Patient Active Problem List Diagnosis DM type 2, goal HbA1c < 8% ([facility]) 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 claudication Hypothyroidism Displacement of cervical intervertebral disc without myelopathy Meniere's disease Paroxysmal atrial fibrillation (HCC) Obstructive sleep apnea of adult Tremor Angiodysplasia of colon with hemorrhage Acquired renal cyst Type 2 diabetes mellitus with polyneuropathy ([facility]) Secondary hyperparathyroidism, renal (HCC) Pulmonary hypertension (HCC) Current moderate episode of major depressive disorder without prior episode (HCC) Moderate persistent asthma without complication Gastro-esophageal reflux disease without esophagitis 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 ([facility]) Pure hypercholesterolemia Aneurysm of left carotid artery (HCC) Aortic atherosclerosis ([facility]) Chronic kidney disease, stage 3b ([facility]) PVD (peripheral vascular disease) ([facility]) Chronic diastolic CHF (congestive heart failure) ([facility]) Type 2 diabetes mellitus with stage 3b chronic kidney disease, without long-term current use of insulin ([facility]) Cardiac pacemaker in situ History of endometrial cancer Normocytic anemia Primary osteoarthritis of right knee Severe tricuspid regurgitation History of TIA (transient ischemic attack) Atherosclerosis of la posta coronary artery without angina pectoris S/P mitral valve clip implantation Presence of Watchman left atrial appendage closure device Nocturnal hypoxemia 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 ([facility]) Sigmoid diverticulosis Closed wedge compression fracture of T12 vertebra ([facility]) Constipation Chronic obstructive pulmonary disease ([facility]) Current Outpatient Medications Medication Sig Dispense Refill EverCloud w/Device Kit Use up to 1 times a day. E11.9 1 Kit 0 Vitamin D3 50 MCG (1999 UT) Oral Capsule Take 2 Capsules by mouth in the morning. 60 Capsule 5 Levalbuterol Tartrate 45 MCG/ACT Inhalation Aerosol (Xopenex HFA) Inhale by mouth 1 Puff every 4 hours as needed for Wheezing. 15 g 12 [employer] ScienceTouch Verio In Vitro Strip (Glucose Blood) Test blood sugars up to 2 times a day E11.9 200 Strip3 Atorvastatin Calcium 20 MG Oral Tablet (Lipitor) TAKE ONE TABLET BY MOUTH EVERY DAY DIRECTED 100Tablet 3 Ipratropium Plano 0.03 % Nasal Solution (Atrovent) Administer 2 Sprays into nostril in the morning and 2 Sprays before bedtime. 90 mL 3 Allopurinol 300 MG Oral Tablet (Zyloprim) Take 1 Tablet by mouth at bedtime. 90 Tablet 3 Tiotropium Plano-Olodaterol 2.5-2.5 MCG/ACT Inhalation Aerosol Solution (Stiolto Respimat) Inhale2 Puffs by mouth in the morning. 12 g 3 Folic Acid 1 MG Oral Tablet [...] 1 Tablet before bedtime. 200 Tablet 3 Melatonin 3 MG Oral Capsule Take 1 Capsule by mouth at bedtime. Acetaminophen 500 MG Oral Tablet (Tylenol) Take [...] in 8 ounces of water or juice.. (Patient not taking: Reported on 03/30/2024) fentaNYL 12 MCG/HR Transdermal Patch [address] 1 Patch over 72 hours topically on the skin every 3 days. For pain control. 10 Patch 0 oxyCODONE HCl 5 MG Oral Tablet (Oxy IR) Take 0.5 Tablets by mouth every 6 hours as needed for Pain,Breakthrough. 30 Tablet 0 Levothyroxine Sodium 175 MCG Oral Tablet (Levoxyl) Take 1 Tablet by mouth daily first thing in the morning. 90 Tablet 3 Aspirin 81 MG Oral Tablet Delayed Release Take 1 Tablet by mouth in the morning. Ferrous Sulfate 325 (65 Fe) MG Oral Tablet Delayed Release Take 1 Tablet by mouth daily. No current facility-administered medications for this visit. [...] (Please comment) QTC prolongation at [facility] Nickel Swelling Other reaction(s): Unknown OBJECTIVE: BP 114/74 | Pulse 82 | Temp 35.9 C (96.7 F) | Resp 20 | Ht 1.651 m (5' 5") | Wt 72.3 kg (159 lb8 oz) | SpO2 95% | BMI 26.54 kg/m | BSA 1.82 m REVIEW OF SYSTEMS: Review of Systems Constitutional: Positive for appetite change and fatigue. Negative for chills and fever. HENT: Negative for congestion, sore throat and trouble swallowing. Respiratory: Positive for shortness of breath. Negative for cough and wheezing. Cardiovascular: Positive for leg swelling. Negative for chest pain and palpitations. Gastrointestinal: Positive for constipation. Negative for abdominal pain, blood in stool, diarrhea,nausea and vomiting. Genitourinary: Negative for dysuria and hematuria. Musculoskeletal: Positive for arthralgias, back pain and gait problem. Neurological: Positive for tremors and weakness. Negative for dizziness and headaches. Psychiatric/Behavioral: Negative for confusion, decreased concentration and sleep disturbance. PHYSICAL EXAM: BP 114/74 | Pulse 82 | Temp 35.9 C (96.7 F) | Resp 20 | Ht 1.651 m (5' 5") | Wt 72.3 kg (159 lb8 oz) | SpO2 95% | BMI 26.54 kg/m | BSA 1.82 m Physical Exam [...] Tenderness: There is no abdominal tenderness. Musculoskeletal: Comments: Trace bilateral ankle edema is present Neurological: Mental Status: She is alert and oriented to person, place, and time. Mental status is at baseline. Motor: Weakness present. Gait: Gait abnormal. Psychiatric: Mood and Affect: Mood normal. Behavior: Behavior normal. Thought Content: Thought content normal. ASSESSMENT/PLAN Closed wedge compression fracture of T12 vertebra with routine healing, subsequent encounter (Primary) Continue to wear brace Continue PT Continue Duragesic and Oxycodone as needed Continue Acetaminophen Type 2 diabetes mellitus with stage 3b chronic kidney disease, without long-term current use of insulin (HCC) - COMPREHENSIVE METABOLIC PANEL; Future; Expected date: 03/30/2024 - COMPREHENSIVE METABOLIC PANEL Diet controlled Paroxysmal atrial fibrillation (HCC) S/P Watchman Implant Watchman thrombus treated and Apixaban was stopped. Drug-induced constipation - Senna-Docusate Sodium 8.6-50 MG Oral Tablet; Take 1 Tablet by mouth at bedtime. Iron deficiency anemia due to chronic blood loss - CBC WITH WBC DIFFERENTIAL; Future; Expected date: 03/30/2024 - IRON SCREEN, INCLUDING TIBC; Future; Expected date: 03/30/2024 - FERRITIN; Future; Expected date: 03/30/2024 - CBC WITH WBC DIFFERENTIAL - IRON SCREEN, INCLUDING TIBC - FERRITIN Pulmonary hypertension (HCC) PVD (peripheral vascular disease) (HCC) Continue ASA Acquired hypothyroidism Continue Levothyroxine Obstructive sleep apnea of adult Tremor Angiodysplasia of colon with hemorrhage Current moderate episode of major depressive disorder without prior episode (HCC) Continue Sertraline Moderate persistent asthma without complication Continue Montelukast, Tiotropium, and Levalbuterol Pure hypercholesterolemia Continue Atorvastatin Cardiac pacemaker in situ History of endometrial cancer Treated with Hysterectomy Atherosclerosis of la posta coronary artery of la posta heart without angina pectoris Continue ASA, and Metoprolol ER S/P mitral valve clip implantation Presence of Watchman left atrial appendage closure device Nocturnal hypoxemia Chronic obstructive pulmonary disease, unspecified COPD type (HCC) 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 claudication Hospital discharge follow-up - DISCH MED RECON CUR MED LIS Follow Up: Return in about 10 days (around 04/09/2024), or if symptoms worsen or fail to improve. Florentin Calvo DO documented in this encounter Nursing Notes * Hilda Awad LPN - 03/30/2024 10:58 AM EDT Here for hospital follow up, states pain scale right now is a 5-6 Has one formed bp per day, has had one soft bm since home. documented in this encounter Plan of Treatment Upcoming Encounters Date Type Department Care Team (Late st Contact Info) Description 03/31/2024 9:45 AM EDT Scheduled Telephone [facility], [facility] [address] [address] Coordinator, [facility] [address] [address] 03/31/2024 2:30 PM EDT Home Visit [facility], [facility] [address] [address] Nikolay Wu, AISHA [address] [address] 04/05/2024 11:00 AM EDT Imaging Vascular Lab, [facility] [address] [address] 04/09/2024 10:00 AM EDT Office Visit Family [facility] [address] [facility] [address] [place] [address] Florentin Calvo, DO [address] [facility], [place] [address] 04/12/2024 8:00 AM EDT Office Visit Hematology/Oncolog y [facility] [address] [place] [address] Nereyda Metz, JESS [address] [place] [address] 04/14/2024 10:50 AM EDT Office Visit Vascular Surgery, [facility] [address] [facility] [place] [address] Aj Sahni MD [address] [place] [address] 04/20/2024 3:40 PM EDT Office Visit Family [facility] 65 [facility] [address] [place] [address] Florentin Calvo, DO [address] [facility], [place] [address] 05/21/2024 1:14 PM EDT Hospital Encounter OR [facility], Operating Room, [facility] - 4th Floor [address] [facility] [address] Jana Vieira, DO [address] [place] [address] 05/21/2024 1:14 PM EDT - 05/21/2024 1:59 PM EDT Surgery OR [facility], Operating Room, [facility] - 4th Floor [address] [facility] [place] [address] Jana Vieira, DO [address] [place] [address] COLONOSCOPY FLEXIBLE PROXIMAL DIAGNOSTIC 06/03/2024 2:15 PM EDT Office Visit Ophthalmology, [facility] [address] [place] [address] Wilbur Benavides, DO [address] [place] [address] 07/01/2024 2:30 PM EST Office Visit Gastroenterology, [facility] [address] [place] [address] Lacy Ronuqillo CRNP [address] [place] [address] 08/09/2024 1:00 PM EST Nurse Only Ancillary 65 [facility] [address] [place] [address] College, Nurse Annual Wellness Visit [address] [place] [address] Pending Results Name Type Priority Associated Diagnoses Date /Time COMPREHENSIVE METABOLIC PANEL Lab Routine Type 2 diabetes mellitus with stage 3b chronic kidney disease, without long-term current use of insulin ([facility]) 03/30/2024 11:55 AM EDT CBC WITH WBC DIFFERENTIAL Lab Routine Iron deficiency anemia due to chronic blood loss 03/30/2024 11:55 AM EDT IRON SCREEN, INCLUDING TIBC Lab Routine Iron deficiency anemia due to chronic blood loss 03/30/2024 11:55 AM EDT FERRITIN Lab Routine Iron deficiency anemia due to chronic blood loss 03/30/2024 11:55 AM EDT CBC Lab Routine Iron deficiency anemia due to chronic blood loss 03/30/2024 11:55 AM EDT DIFFERENTIAL, AUTOMATED Lab Routine Iron deficiency anemia due to chronic blood loss 03/30/2024 11:55 AM EDT Scheduled Orders Name Type Priority Associated Diagnoses Orde r Schedule COMPREHENSIVE METABOLIC PANEL Lab Routine Type 2 diabetes mellitus with stage 3b chronic kidney disease, without long-term current use of insulin (HCC) Expected: 03/30/2024 (Approximate), Expires: 03/30/2025 CBC WITH WBC DIFFERENTIAL Lab Routine Iron deficiency anemia due to chronic blood loss Expected: 03/30/2024 (Approximate), Expires: 03/30/2025 IRON SCREEN, INCLUDING TIBC Lab Routine Iron deficiency anemia due to chronic blood loss Expected: 03/30/2024 (Approximate), Expires: 03/30/2025 FERRITIN Lab Routine Iron deficiency anemia due to chronic blood loss Expected: 03/30/2024 (Approximate), Expires: 03/30/2025 Scheduled Procedures Name Priority Associated Diagnoses Date/Ti [...] COPD 07/31/2024 07/31/2023 CKD PHOS USE SMARTSET 07418 08/19/202407/26, 05/01/2022, 04/03/2022, Additional history exists Diabetic Foot Exam 09/15/2024 09/15/2023, 0 10/01/2022, 10/26/2021, Additional history exists GFR 09/15/2024 03/15/2024, 07/4, 02/24/2024, Additional history exists Depression Monitoring 09/29/2024 09/29/2023 Albumin/Creatinine Ratio 12/08/2024 024, 02/21/2023, 05/01/2022, Additional history exists CKD HGB USE SMARTSET 48902 03/15/202503/15, 03/15/2024, 03/02/2024, Additional history exists TSH [...] this encounter Medical Devices Implanted Type Area Bean Picker Device Identifier Shelf Expiration Date Model / Serial / Lot Cath Thermodilution 6fr - [id number] Implanted:Qty: 1 on 01/24/2023 by Wilbur Rivera MD at [facility] [employer] [id number] 10/15/2024 [id number] / / [id number] Clip Delivery Sytem G4 Xt - [id number] Implanted:Qty: 1 on 03/10/2023 at [facility] [employer] [id number] 04/15/2023 [id number] / / [id number] Clip Delivery Sytem G4 Xtw - [id number] Implanted:Qty: 1 on 03/10/2023 at [facility] [employer] [id number] 12/06/2023 [id number] / / [id number] Mirtaclip G4 - [id number] Implanted:Qty: 1 on 03/10/2023 at [facility] [employer] 11/19/2023 [id number] / / [id number] Device Watchman Flx 31mm - [id number] Implanted:Qty: 1 on 07/31/2023 by Wilbur Rivera MD at [facility] [employer] : INTRV CARD [id number] 12/02/2025 [id number] documented as of this encounter Visit Diagnoses Diagnosis Closed wedge compression fracture of T12 vertebra with routine healing, subsequent encounter- Primary Type 2 diabetes mellitus with stage 3b chronic kidney disease, without long-term current use of insulin (HCC) Paroxysmal atrial fibrillation (HCC) Atrial fibrillation Drug-induced constipation Other constipation Iron deficiency anemia due to chronic blood loss Iron deficiency anemia secondary to blood loss (chronic) Pulmonary hypertension (HCC) Other chronic pulmonary heart diseases PVD (peripheral vascular disease) (HCC) Peripheral vascular disease, unspecified Acquired hypothyroidism Unspecified hypothyroidism Obstructive sleep apnea of adult Obstructive sleep apnea (adult) (pediatric) Tremor Abnormal involuntary movements Angiodysplasia of colon with hemorrhage Angiodysplasia of intestine with hemorrhage Current moderate episode of major depressive disorder without prior episode (HCC) Moderate persistent asthma without complication Unspecified asthma Pure hypercholesterolemia Cardiac pacemaker in situ History of endometrial cancer Personal history of malignant neoplasm of other parts of uterus Atherosclerosis of la posta coronary artery of la posta heart without angina pectoris S/P mitral valve clip implantation Presence of Watchman left atrial appendage closure device Nocturnal hypoxemia Hypoxemia Chronic obstructive pulmonary disease, unspecified COPD type (HCC) 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 claudication Spinal stenosis, lumbar region, without neurogenic claudication Hospital discharge follow-up Other follow-up examination Diarrhea, unspecified type History of diverticulitis documented in this encounter Advance Directives Documents on File Type Date Recorded Patient Curriculum Writer Expl anation Advance Directives and Living Will 11/29/2022 ADVANCE DIRECTIVE / LIVING WILL Power of Avionics Systems Repairer 11/29/2022 POWER OF A TTORNEY Advance Directives and Living Will 10/24/2014 ADVANCE DIRECTIVE / LIVING WILL Power of Avionics Systems Repairer 10/24/2014 POWER OF A TTORNEY * Full [...] the patient have Health Care Power of Avionics Systems Repairer? No * No Code Date Activated Date [...] Agents on File Name Relationship Healthcare Agent [facility] Communication [facility] Adult Child Health Care Frieda t (per Health Care Power of Avionics Systems Repairer document) Care Teams Jacquard Lace Weaver Relationship Specialty Start Date End Date Florentin Calvo DO [address] [place] [address] PCP - General Internal Medicine 02/06/24 documented as of this encounter
--- OUTSIDE RECORDS SUMMARY | 2024-04-13 02:12 | External Medical Summary | Summary of Care ---
Author Name Unknown Organization [facility] Address [address] [place] [address] Phone [phone] Care Team Providers Care Geography Instructor Name Role Phone Florentin Calvo DO Primary Care Provider [phone] Reason for Visit * Reason Onset Date Comments Appointment 03/29/2024 Encounter Details Date Type Department Care Team (Late st Contact Info) Description 03/29/2024 Telephone [facility], [place] [address] [place] [address] Services, Scheduling [address] [place] [address] Appointment Allergies Active Allergy Reactions Criticality Noted [...] Dispensed Refills Start Date End Date Status Next Level [employer] Systems Verio w/Device KitIndications:Type 2 diabetes mellitus with [...] DIRECTED 100 Tablet 3 03/31/2023 Active Ipratropium [place] 0.03 % Nasal Solution (Atrovent)Indication s:Chronic rhinitis Administer 2 Sprays into nostril in the morning and 2 Sprays before bedtime. 90 mL 3 04/01/2023 Active Allopurinol 300 MG Oral Tablet (Zyloprim) Take 1 Tablet by mouth at bedtime. 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 No-NANWALEK can hear w/ hearing aid 03/07/2023 Are [...] encounter Miscellaneous Notes * Telephone Encounter - Adriana Rivero OSA - 03/29/2024 9:19 AM EDT Per request from to move pt EDIS visit scheduled for today (03/29.). Not a [facility] day ( isfixing the template to correct this). Per EDIS visit can be scheduled for any day this week she is in [facility] on , , and . Scheduled pt to be seen on Fri at 2:30 pm. Confirmed with pts son that date and time works for her. documented in this encounter Plan of Treatment Upcoming Encounters Date Type Department Care Team (Late st Contact Info) Description 03/30/2024 11:20 AM EDT Office Visit Family Practice [address], [place] [address] [place] [address] Florentin Calvo, 293 [place] [place] [address] 03/31/2024 2:30 PM EDT Home Visit [facility] [address] [place] [address] Nikolay Wu, RN [address] [place] [address] 04/05/2024 11:00 AM EDT Imaging Vascular Lab, [facility] 2nd [facility] 132 [facility] [place] [address] 04/12/2024 8:00 AM EDT Office Visit [facility]ematology[facility]colog [place] [facility] [address] [place] [address] Nereyda Metz CRNP [address] [place] [address] 04/14/2024 10:50 AM EDT Office Visit Vascular Surgery, [facility] 132 [facility] [place] [address] Aj Sahni MD [address] [place] [address] 04/20/2024 3:40 PM EDT Office Visit Family Practice 65 [facility], [place] [address] [place] [address] Florentin Calvo, DO [address] [place] [address] 05/21/2024 1:14 PM EDT Hospital Encounter [facility], Operating Room, [facility] - 4th Floor 400 [place] [address] Jana Vieira, DO [facility] [place] [address] 05/21/2024 1:14 PM EDT - 05/21/2024 1:59 PM EDT Surgery OR [facility], Operating Room, [facility] - 4th Floor 400 [facility] [place] [address] Jana Vieira, DO [facility] [place] [address] COLONOSCOPY FLEXIBLE PROXIMAL DIAGNOSTIC 06/03/2024 2:15 PM EDT Office Visit Ophthalmology, [facility] 132 [facility] [place] [address] Wilbur Benavides, DO [address] [place] [address] 07/01/2024 2:30 PM EST Office Visit Gastroenterology, [facility] 132 [facility] [place] [address] Lacy Ronquillo CRNP 132 [facility] [place] [address] 08/09/2024 1:00 PM EST Nurse Only Ancillary 65 [facility] [address] [place] [address] College, Nurse Annual Wellness Visit [address] [place] [address] Scheduled Procedures Name Priority Associated Diagnoses Date/Ti [...] COPD 07/31/2024 07/31/2023 CKD PHOS USE SMARTSET 89126 08/19/202407/26, 05/01/2022, 04/03/2022, Additional history exists Diabetic Foot Exam 09/15/2024 09/15/2023, 0 10/01/2022, 10/26/2021, Additional history exists GFR 09/15/2024 03/15/2024, 07/0 04/2024, 02/24/2024, Additional history exists Depression Monitoring 09/29/2024 09/29/2023 Albumin/Creatinine Ratio 12/08/2024 024, 02/21/2023, 05/01/2022, Additional history exists CKD HGB USE SMARTSET 08788 03/15/202503/15, 03/15/2024, 03/02/2024, Additional history exists TSH [...] encounter Medical Devices Implanted Type Area Manager Risk Management Device Identifier Shelf Expiration Date Model / Serial / Lot Cath Thermodilution 6fr - [id number] Implanted:Qty: 1 on 01/24/2023 by Wilbur Rivera MD at [facility] [place] [facility] [employer] [id number] 10/15/2024 [id number] / / [id number] Clip Delivery Sytem G4 Xt - [id number] Implanted:Qty: 1 on 03/10/2023 at [facility] [place] [employer] [id number] 04/15/2023 [id number] T / / [id number] Clip Delivery Sytem G4 Xtw - [id number] Implanted:Qty: 1 on 03/10/2023 at [facility] [place] [facility] [employer] [id number] 12/06/2023 [id number] TW / / [id number] Mirtaclip G4 - [id number] Implanted:Qty: 1 on 03/10/2023 at [facility] [place] [facility] [employer] 11/19/2023 [id number] / / [id number] Device Watchman Flx 31mm - [id number] Implanted:Qty: 1 on 07/31/2023 by Wilbur Rivera MD at [facility] [place] [employer] : INTRV CARD [id number] 12/02/2025 [id number] / / [id number] documented as of this encounter Advance Directives Documents on File Type Date Recorded 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 No * No Code Date Activated Date [...] Agents on File Name Relationship [facility] (per Health Care Power of Soil Technologist document) Care Teams Geography Instructor Relationship Specialty Start Date End Date Florentin Calvo DO 293 [place] [address] PCP - General Internal Medicine 02/06/24 documented as of this encounter
--- OUTSIDE RECORDS SUMMARY | 2024-04-13 02:12 | External Medical Summary | Summary of Care ---
Author Name Unknown Organization [facility] Address [address] [place] [address] Phone [phone] Care Team Providers Care Voltage Inspector Name Role Phone Florentin Calvo DO Primary Care Provider [phone] Reason for Visit * Reason Onset Date Comments Encounter Created in Error 03/26/2024 Encounter Details Date Type Department Care Team (Late st Contact Info) Description 03/26/2024 9:00 AM EDT Scheduled Telephone [facility], [facility] 132 [place] [address] Coordinator, [facility] 132 [facility] [place] [address] Allergies Active Allergy Reactions Criticality Noted Date Comments Azithromycin Other (Please comment) 12/04/2021 QTC prolongation at [facility] Celecoxib Hives,Rash High 03/24/2013 Other reaction(s): Rash/Hives/Itching. [...] Dispensed Refills Start Date End Date Status YOOSE Verio w/Device KitIndications:Type 2 diabetes mellitus with [...] 100 Tablet 3 03/31/2023 Active Ipratropium [place] 0.03 % Nasal Solution (Atrovent)Indication s:Chronic rhinitis Administer 2 Sprays into nostril in the morning and 2 Sprays before bedtime. 90 mL 3 04/01/2023 Active Allopurinol 300 MG Oral Tablet (Zyloprim) Take 1 Tablet by mouth at bedtime. 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 (Household - for [...] or do you have serious difficulty hearing? No-RESIGHINI can hear w/ hearing aid 03/07/2023 Are [...] Telephone Encounter - Wiley Benjamin OSA - 03/26/2024 9:36 AM EDT [id number] F/u call to . They are working on matching a supplier. Confirmed pts phone number and stated theywould notify pt w/ the supplier who would be delivering DME. F/u call scheduled Friday, (03/29). documented in this encounter Plan of Treatment Upcoming Encounters Date Type Department Care Team (Late st Contact Info) Description 03/30/2024 11:20 AM EDT Office Visit Family Practice [address], [place] 293 [place] [address] Florentin Calvo, 293 [facility], [place] [address] 03/31/2024 9:45 AM EDT Scheduled Telephone [facility] [place], [facility] 132 [facility] [place] [address] Coordinator, [facility] 132 [facility] [place] [address] 03/31/2024 2:30 PM EDT Home Visit [facility], [facility] 132 [facility] [place] [address] Nikolay Wu, AISHA 132 [facility] [place] [address] 04/05/2024 11:00 AM EDT Imaging Vascular Lab, [facility] 2nd [facility] 132 [facility] [place] [address] 04/12/2024 8:00 AM EDT Office Visit Hematology/Oncolog y [facility] [address] [facility] [place] [address] Nereyda Metz, JESS 400 [facility] [place] [address] 04/14/2024 10:50 AM EDT Office Visit Vascular Surgery, [facility] 132 [facility] [place] [address] Aj Sahni MD [address] [place] [address] 04/20/2024 3:40 PM EDT Office Visit Family Practice 65 [facility] 293 [place] [address] Florentin Calvo, DO [address] [place] [address] 05/21/2024 1:14 PM EDT Hospital Encounter OR [facility], Operating Room, [facility] - 4th Floor 400 [facility] [place] [address] Jana Vieira, DO 132 [facility] [place] [address] 05/21/2024 1:14 PM EDT - 05/21/2024 1:59 PM EDT Surgery OR [facility], Operating Room, [facility] - 4th Floor 400 [facility] [place] [address] Jana Vieira, DO [facility] [place] [address] COLONOSCOPY FLEXIBLE PROXIMAL DIAGNOSTIC 06/03/2024 2:15 PM EDT Office Visit Ophthalmology, [facility] 132 [facility] [place] [address] Wilbur Benavides, DO [address] [facility] [place] [address] 07/01/2024 2:30 PM EST Office Visit Gastroenterology, [facility] 132 [facility] [place] [address] Lacy Ronquillo CRNP 132 [facility] [address] 08/09/2024 1:00 PM EST Nurse Only Ancillary 65 [facility] 293 [place] [address] College, Nurse Annual Wellness Visit [address] [place] [address] Scheduled Procedures Name Priority Associated Diagnoses Date/Ti [...] COPD 07/31/2024 07/31/2023 CKD PHOS USE SMARTSET 79356 08/19/202407/26, 05/01/2022, 04/03/2022, Additional history exists Diabetic Foot Exam 09/15/2024 09/15/2023, 0 10/01/2022, 10/26/2021, Additional history exists GFR 09/15/2024 03/15/2024, 07/0 04/2024, 02/24/2024, Additional history exists Depression Monitoring 09/29/2024 09/29/2023 Albumin/Creatinine Ratio 12/08/2024 024, 02/21/2023, 05/01/2022, Additional history exists CKD HGB USE SMARTSET 07871 03/15/202503/15, 03/15/2024, 03/02/2024, Additional history exists TSH [...] this encounter Medical Devices Implanted Type Area Employee Relation Manager Device Identifier Shelf Expiration Date Model / Serial / Lot Cath Thermodilution 6fr - [id number] Implanted:Qty: 1 on 01/24/2023 by Wilbur Rivera MD [place] [facility] [employer] [id number] 10/15/2024 [id number] / / [id number] Clip Delivery Sytem G4 Xt - [id number] Implanted:Qty: 1 on 03/10/2023 at [facility] [employer] [id number] 04/15/2023 [id number] T / / [id number] Clip Delivery Sytem G4 Xtw - [id number] Implanted:Qty: 1 on 03/10/2023 at [facility] [employer] [id number] 12/06/2023 [id number] TW / / [id number] Mirtaclip G4 - [id number] Implanted:Qty: 1 on 03/10/2023 at [facility] [employer] 11/19/2023 [id number] / / [id number] Device Watchman Flx 31mm - [id number] Implanted:Qty: 1 on 07/31/2023 by Wilbur Rivera MD at [facility] [employer] : INTRV CARD [id number] 12/02/2025 [id number] / / [id number] documented as of this encounter Advance Directives Documents on File Type Date Recorded 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 No * No Code Date Activated Date [...] Agents on File Name Relationship Healthcare Agent [facility] Communication [facility] Adult Child Health Care Agen t (per Health Care Power of Direct Marketing Intern document) Care Teams Voltage Inspector Relationship Specialty Start Date End Date Florentin Calvo DO [address] [place] [address] PCP - General Internal Medicine 02/06/24 documented as of this encounter
--- OUTSIDE RECORDS SUMMARY | 2024-04-13 02:12 | External Medical Summary ---
Author Name Unknown Address Unknown Organization [id number]:[facility] [place] [address] [facility] [address] Laboratory Report Ordering Provider Test Date Status ANTONIO EDMONDS 03/30/2024 11:55:44 Final Observation Date Value Abnormality Reference (Units ) Status SYNC LEUKOCYTES IN BLOOD BY AUTOMATED COUNT 03/30/2024 11:55:44 8.50 4.00-10.80 (K/uL) Final Segs 03/30/2024 11:55:44 72.8 40.0-75.0 (%) Final Lymphs % 03/30/2024 11:55:44 10.9 Below low normal 18.0-42.0 (%) Final Monos 03/30/2024 11:55:44 8.7 1.0-11.0 (%) Final Eosinophils 03/30/2024 11:55:44 5.8 0.0-6.0 (%) Final Basos 03/30/2024 11:55:44 0.6 0.0-2.0 (%) Final Immature Granulocyte, Percent 03/30/2024 11:55:44 1.2 0.0-2.0 (%) Final Absolute Segs 03/30/2024 11:55:44 6.19 1.80-7.70 (K/uL) Final Lymphs, absolute 03/30/2024 11:55:44 0.93 Below low normal 1.00-4.80 (K/ul) Final Monos, Abs 03/30/2024 11:55:44 0.74 0.00-1.10 (K/uL) Final Eos, Abs 03/30/2024 11:55:44 0.49 0.00-0.70 (K/uL) Final Basos, Abs 03/30/2024 11:55:44 0.05 0.00-0.20 (K/uL) Final Immature Granulocytes, Number 03/30/2024 11:55:44 0.10 0.00-0.20 (K/uL) Final Performing Location [facility] [place] [address] [facility] [address]
--- OUTSIDE RECORDS SUMMARY | 2024-04-13 02:12 | External Medical Summary ---
Author Name Unknown Address Unknown Organization [id number]:[facility] [place] 100 [facility] [address] Laboratory Report Ordering Provider Test Date Status ANTONIO EDMONDS 03/30/2024 11:55:44 Final Observation Date Value Abnormality Reference (Units ) Status BUN 03/30/2024 11:55:44 37 Above high normal 6-20 (mg/dL) Final Creatinine 03/30/2024 11:55:44 1.7 Above high normal 0.5-1.0 (mg/dL) Final Glomerular filtration rate/1.73 sq M.predicted [Volume Rate/Area] in Serum, Plasma or Blood by Creatinine-based formula (CKD-EPI) 03/30/2024 11:55:44 29 Below low normal >=60 (mL/min) Final eGFR is calculated based on the CKD-EPI 2020 equation. Sodium 03/30/2024 11:55:44 137 135-146 (m mol/L) Final Potassium 03/30/2024 11:55:44 5.0 3.5-5.1 (m mol/L) Final Cl 03/30/2024 11:55:44 99 98-107 (mm ol/L) Final CO2 03/30/2024 11:55:44 25 22-32 (mmo l/L) Final Anion gap 03/30/2024 11:55:44 13 7-15 (mmol /L) Final Glucose 03/30/2024 11:55:44 119 70-120 (mg /dL) Final Albumin 03/30/2024 11:55:44 4.1 3.8-5.0 (g /dL) Final AST (Aspartate aminotransferase) 03/30/2024 11:55:44 57 Above high normal 10-35 (U/L) Final Alk Phos 03/30/2024 11:55:44 231 Above high normal 35 -130 (U/L) Final Bilirubin, Total 03/30/2024 11:55:44 0.3 <=1 .2 (mg/dL) Final Calcium 03/30/2024 11:55:44 9.7 8.4-10.2 ( mg/dL) Final Protein 03/30/2024 11:55:44 6.5 6.0-8.3 (g /dL) Final ALT (Alanine aminotransferase) 03/30/2024 11:55:44 26 10-35 (U/L) Tarik polo Performing Location [facility] [place] [address] [facility] [address]
--- OUTSIDE RECORDS SUMMARY | 2024-04-13 02:13 | External Medical Summary | Summary of Care ---
Author Name Unknown Organization [facility] Address [address] [place] [address] Phone [phone] Care Team Providers Care Clinical Data Research Name Role Phone Florentin Calvo DO Primary Care Provider [phone] Reason for Visit * Reason Onset Date Comments Information 03/26/2024 Encounter Details Date Type Department Care Team (Late st Contact Info) Description 03/26/2024 Telephone [facility], [place] [address] [place] [address] Services, Scheduling [address] [place] [address] Information Allergies Active Allergy Reactions Criticality Noted [...] as of this encounter (statuses as of 03/26/2024) Medications Medication Sig Dispensed Refills Start Date End Date Status Launchpilots Verio w/Device KitIndications:Type 2 diabetes mellitus with [...] Tablet (Lipitor)Indications :PVD (peripheral vascular disease) ([facility]),Type 2 diabetes mellitus with stage 3a chronic kidney disease and hypertension ([facility]) TAKE ONE TABLET BY MOUTH EVERY DAY DIRECTED 100 Tablet 3 03/31/2023 Active Ipratropium Nimitz 0.03 % Nasal Solution (Atrovent)Indication s:Chronic rhinitis Administer 2 Sprays into nostril in the morning and 2 Sprays before bedtime. 90 mL 3 04/01/2023 Active Allopurinol 300 MG Oral Tablet (Zyloprim) Take 1 Tablet by mouth at bedtime. 90 Tablet 3 05/16/2023 Active Tiotropium Nimitz-Olodaterol 2.5-2.5 MCG/ACT Inhalation Aerosol Solution (Stiolto Respimat) [...] T12 vertebra, initial encounter ([facility]) Place 1 Patch over 72 hours topically [...] as of this encounter (statuses as of 03/26/2024) Active Problems Problem Noted Date Diagnosed Date Compression fracture of T12 vertebra 03/12/2024 Last Assessment & Plan: Increased oxy from 2.5mg to 5mg [id number] prn Ortho spine ref, ?kyphoplasty Constipation 03/12/2024 [...] mitral valve clip implantation 03/06/2023 Atherosclerosis of 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 02/13/2023 [...] Obstructive sleep apnea of adult 09/09/2014 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 No-[place] [employer] can hear w/ hearing aid 03/07/2023 [...] Encounter - Wiley Benjamin OSA - 03/26/2024 12:04 PM EDT DME order- message from . Order for gel overlay (-[id number]) cancelled and a new order was created with ID [id number] for further updates. documented in this encounter Plan of Treatment Upcoming Encounters Date Type Department Care Team (Late st Contact Info) Description 03/27/2024 10:30 AM EDT Scheduled Telephone [facility], [place] [address] [place] [address] Region, Nurse [address] [place] [address] 03/28/2024 10:30 AM EDT Scheduled Telephone [facility], [facility] [address] [place] [address] Region, Nurse [place] [address] [place] [address] 03/29/2024 9:00 AM EDT Scheduled Telephone [facility] [place], [facility] [address] [place] [address] Coordinator, [place] [address] [place] [address] 03/29/2024 2:30 PM EDT Home Visit [facility], [facility] [address] [place] [address] Nikolay Wu, RN 132 [facility] [place] [address] 03/30/2024 11:20 AM EDT Office Visit Family Practice [address] [place] [address] 293 [facility] [place] [address] Florentin Calvo, [address] [place] [address] 04/05/2024 11:00 AM EDT Imaging Vascular Lab, [facility] 2nd [facility] 132 [facility] [place] [address] 04/12/2024 8:00 AM EDT Office Visit Hematology/Oncolog y [facility] [address] [place] [address] Nereyda Metz CRNP [address] [place] [address] 04/14/2024 10:50 AM EDT Office Visit Vascular Surgery, [facility] 132 [facility] [place] [address] Aj Sahni MD [address] [place] [address] 04/20/2024 3:40 PM EDT Office Visit Family Practice [address] [place] [address] 293 [facility] [place] [address] Florentin Calvo, 293 [facility], [place] [address] 05/21/2024 1:14 PM EDT Hospital Encounter OR [facility], Operating Room, [facility] - 4th Floor [address] [place] [address] Jana Vieira, DO [address] [place] [address] 05/21/2024 1:14 PM EDT - 05/21/2024 1:59 PM EDT Surgery OR [facility], Operating Room, [facility] - 4th Floor [address] [place] [address] Jana Vieira, DO [address] [place] [address] COLONOSCOPY FLEXIBLE PROXIMAL DIAGNOSTIC 06/03/2024 2:15 PM EDT Office Visit Ophthalmology, [facility] 132 [facility] [place] [address] Wilbur Benavides, DO [address] [facility] [place] [address] 07/01/2024 2:30 PM EST Office Visit Gastroenterology, [facility] 132 [facility] [place] [address] Lacy Ronquillo CRNP 132 [facility] [place] [address] 08/09/2024 1:00 PM EST Nurse Only Ancillary 65 [facility] 293 [facility] [place] [address] College, Nurse Annual Wellness Visit 65 [facility] 293 [facility] [place] [address] Scheduled Procedures Name Priority Associated Diagnoses Date/Ti [...] COPD 07/31/2024 07/31/2023 CKD PHOS USE SMARTSET 84687 08/19/202407/26, 05/01/2022, 04/03/2022, Additional history exists Diabetic Foot Exam 09/15/2024 09/15/2023, 0 10/01/2022, 10/26/2021, Additional history exists GFR 09/15/2024 03/15/2024, 07/0 04/2024, 02/24/2024, Additional history exists Depression Monitoring 09/29/2024 09/29/2023 Albumin/Creatinine Ratio 12/08/2024 024, 02/21/2023, 05/01/2022, Additional history exists CKD HGB USE SMARTSET 37005 03/15/202503/15, 03/15/2024, 03/02/2024, Additional history exists TSH [...] this encounter Medical Devices Implanted Type Area Plumbing Inspector Device Identifier Shelf Expiration Date Model / Serial / Lot Cath Thermodilution 6fr - [id number] Implanted:Qty: 1 on 01/24/2023 by Wilbur Rivera MD [place] [facility] [place] [employer] TERE [id number] 10/15/2024 [id number] / / [id number] Clip Delivery Sytem G4 Xt - [id number] Implanted:Qty: 1 on 03/10/2023 at [facility] [place] [employer] [id number] 04/15/2023 [id number] / / [id number] Clip Delivery Sytem G4 Xtw - [id number] Implanted:Qty: 1 on 03/10/2023 at [facility] [place] [employer] [id number] 12/06/2023 [id number] / / [id number] Mirtaclip G4 - [id number] Implanted:Qty: 1 on 03/10/2023 at [facility] [place] [employer] 11/19/2023 [id number] / / [id number] Device Watchman Flx 31mm - [id number] Implanted:Qty: 1 on 07/31/2023 by Wilbur Rivera MD [place] [facility] [place] [employer] : INTRV CARD [id number] 12/02/2025 [id number] documented as of this encounter Advance Directives Documents on File Type Date Recorded 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 No * No Code Date Activated [...] Agents on File Name Relationship Healthcare Agent [facility] Bright Barakat Adult Child Health Care Frieda t (per Health Care Power of Butane Compressor Operator document) Care Teams Clinical Data Research Relationship Specialty Start Date End Date Florentin Calvo DO [address] [facility] [place] [facility] [address] PCP - General Internal Medicine 02/06/24 documented as of this encounter
--- OUTSIDE RECORDS SUMMARY | 2024-04-13 02:13 | External Medical Summary | Summary of Care ---
Author Name Unknown Organization [facility] Address [address] [place] [address] Phone [phone] Care Team Providers Care Counter Tacker Name Role Phone Florentin Calvo DO Primary Care Provider [phone] Reason for Visit * Reason Onset Date Comments [facility]: Maintenance 03/28/2024 Encounter Details Date Type Department Care Team (Late st Contact Info) Description 03/28/2024 10:30 AM EDT Scheduled Telephone [facility], [facility] [address] [place] [address] [facility], [facility] [address] [place] [address] Allergies Active Allergy Reactions Criticality Noted Date [...] as of this encounter (statuses as of 03/28/2024) Medications Medication Sig Dispensed Refills Start Date End Date Status InnoCyte w/Device KitIndications:Type 2 diabetes mellitus with hemoglobin [...] Tablet (Lipitor)Indications :PVD (peripheral vascular disease) ([facility]),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 90 mL 3 04/01/2023 Active Allopurinol 300 MG Oral Tablet (Zyloprim) Take 1 Tablet by mouth at bedtime. 90 Tablet 3 05/16/2023 Active Tiotropium Jacob-Olodaterol 2.5-2.5 MCG/ACT Inhalation Aerosol Solution (Stiolto Respimat) [...] :Chronic diastolic CHF (congestive heart failure) ([facility]) Take 2 Tablets by mouth in the morning. 200 Tablet 3 02/24/2024 Active Apixaban 2.5 MG Oral Tablet (Eliquis)Indications :Paroxysmal atrial fibrillation ([facility]) Take 1 Tablet [...] fracture of T12 vertebra, initial encounter ([facility]) Place 1 Patch over 72 [...] as of this encounter (statuses as of 03/28/2024) Active Problems Problem Noted Date Diagnosed Date Compression fracture of T12 vertebra 03/12/2024 Last Assessment & Plan: Increased oxy from 2.5mg to 5mg [id number] prn Ortho spine ref, ?kyphoplasty Constipation 03/12/2024 [...] mitral valve clip implantation 03/06/2023 Atherosclerosis of [place] 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 02/13/2023 [...] Obstructive sleep apnea of adult 09/09/2014 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 (Household - [...] Telephone Encounter - Jes Ortiz RN - 03/28/2024 11:54 AM EDT [facility] Telephonic Nurse Follow-Up Call [facility] Subprogram: Focused Care Management (3-9 months) Follow Up Call Type: Weekend Call Acute issue requiring follow-up call: Other: EDIS call Objective: 03/15/2024 4:08 PM 03/10/2024 2:49 PM 03/09/2024 10:38 AM 02/24/2024 3:46 PM 02/17/2024 3:46 PM VITALS ACROSS ENCOUNTERS BP 114/54 120/50 102/60 104/58 125/65 Pulse 88 67 82 103 98 Weight 72.8 kg 73.9 kg 74.8 kg BMI 26.69 BMI 26.69 kg/m2 27.11 kg/m2 27.46 kg/m2 Remote Patient Monitoring: NONE Oxygen Needs: NO supplemental oxygen needs identified DME Needs: NO DME needs identified Medications: New medication(s) added: Ferrous sulfate daily ,ASA 81 mg daily, oxycodone 5 mg QID prn, Dificid daily x 7 days Dose adjustment(s) made: n/a Medication(s) discontinued: eliquis, oxycodone 2.5 mg prn pain Subjective: Condition Status: Improvement in symptoms but not at baseline Current Concerns: Spoke with son Bright, reviewed phone call summary from yesterday, states his mother is doing well, still waiting for one prescription resolution (insurance - has call out to PCP), otherwise has all remaining prescriptions and taking as prescribed. Spoke with Inga, reports feeling little better, still having lots of pain in back and hips is using heat and lidocaine patches, Had 2 good solid stools in the past 2 days, denies any diarrhea, no abdominal pain, has SOB and wheezing resolved with her inhaler, wears O2 at night, pulse ox is 93% on RA, compliant with all medications. Aware of [facility] home visit tomorrow Disposition: RNCM visit scheduled Future Visits Scheduled: Future Appointments-next 60 days Date/Time Provider Specialty Dept Phone 03/29/2024 9:00 AM Coordinator, Quinn Streeter [facility] [phone] 03/29/2024 2:30 PM Nikolay Wu RN [facility] [phone] 03/30/2024 11:20 AM (Arrive by 11:05 AM) Florentin Calvo DO Family Medicine [phone] 04/05/2024 11:[address] Radiology [phone] 04/12/2024 8:00 AM (Arrive by 7:45 AM) Nereyda Metz CRNP Hematology Oncology [phone] 04/14/2024 10:50 AM Aj Sahni MD Vascular Surgery [phone] 04/20/2024 3:40 PM (Arrive by 3:25 PM) Florentin Calvo DO Family Medicine [phone] 06/03/2024 2:15 PM Wilbur Benavides DO Ophthalmology [phone] 07/01/2024 2:30 PM (Arrive by 2:15 PM) Lacy Ronquillo CRNP Gastroenterology [phone] 08/09/2024 1:00 PM College, Nurse Annual Wellness Visit [address] [employer] [address] Ancillary [phone] Jes Ortiz RN documented in this encounter Plan of Treatment Upcoming Encounters Date Type Department Care Team (Late st Contact Info) Description 03/29/2024 9:00 AM EDT Scheduled Telephone [facility], [facility] 132 [facility] [place] [address] Coordinator, Quinn Borja [facility] [address] [place] [address] 03/29/2024 2:30 PM EDT Home Visit [facility], [facility] [address] [place] [address] Nikolay Wu, AISHA 132 [facility] [place] [address] 03/30/2024 11:20 AM EDT Office Visit Family Practice [address] [place] [address] 293 [place] [address] Florentin Calvo DO 293 [place] [address] 04/05/2024 11:00 AM EDT Imaging Vascular Lab, [facility] 2nd [facility] 132 [facility] [place] [address] 04/12/2024 8:00 AM EDT Office Visit Hematology/Oncolog y [facility] [address] [facility] [place] [address] Nereyda Metz CRNP 400 [place] [address] 04/14/2024 10:50 AM EDT Office Visit Vascular Surgery, [facility] 132 [facility] [place] [address] Aj Sahni MD [address] [place] [address] 04/20/2024 3:40 PM EDT Office Visit Family Practice [address] [place] [address] 293 [facility] [address] Florentin Calvo, DO 293 [facility] [place] [address] 05/21/2024 1:14 PM EDT Hospital Encounter OR [facility], Operating Room, [facility] - 4th Floor 400 [facility] [place] [address] Jana Vieira, DO [address] [facility] [place] [address] 05/21/2024 1:14 PM EDT - 05/21/2024 1:59 PM EDT Surgery OR [facility], Operating Room, [facility] - 4th Floor [address] [place] [address] Jana Vieira, DO [address] [place] [address] COLONOSCOPY FLEXIBLE PROXIMAL DIAGNOSTIC 06/03/2024 2:15 PM EDT Office Visit Ophthalmology, [facility] 132 [facility] [place] [address] Wilbur Benavides, DO [address] [place] [address] 07/01/2024 2:30 PM EST Office Visit Gastroenterology, [facility] 132 [facility] [place] [address] Lacy Ronquillo CRNP 132 [facility] [place] [address] 08/09/2024 1:00 PM EST Nurse Only Ancillary 65 [facility] 293 [facility], [place] [address] College, Nurse Annual Wellness Visit [address] [address] Scheduled Procedures Name Priority Associated Diagnoses Date/Ti [...] COPD 07/31/2024 07/31/2023 CKD PHOS USE SMARTSET 93717 08/19/202407/26, 05/01/2022, 04/03/2022, Additional history exists Diabetic Foot Exam 09/15/2024 09/15/2023, 0 10/01/2022, 10/26/2021, Additional history exists GFR 09/15/2024 03/15/2024, 07/0 04/2024, 02/24/2024, Additional history exists Depression Monitoring 09/29/2024 09/29/2023 Albumin/Creatinine Ratio 12/08/2024 024, 02/21/2023, 05/01/2022, Additional history exists CKD HGB USE SMARTSET 19481 03/15/202503/15, 03/15/2024, 03/02/2024, Additional history exists TSH [...] this encounter Medical Devices Implanted Type Area Pocket Flap Creasing Machine Operator Device Identifier Shelf Expiration Date Model / Serial / Lot Cath Thermodilution 6fr - [id number] Implanted:Qty: 1 on 01/24/2023 by Wilbur Rivera MD at [facility] [employer] [id number] 10/15/2024 [id number] / / [id number] Clip Delivery Sytem G4 Xt - [id number] Implanted:Qty: 1 on 03/10/2023 at [facility] [employer] [id number] 04/15/2023 [id number] / / [id number] Clip Delivery Sytem G4 Xtw - [id number] Implanted:Qty: 1 on 03/10/2023 at [facility] [employer] [id number] 12/06/2023 [id number] / / [id number] Mirtaclip G4 - [id number] Implanted:Qty: 1 on 03/10/2023 at [facility] [employer] 11/19/2023 [id number] / / [id number] Device Watchman Flx 31mm - [id number] Implanted:Qty: 1 on 07/31/2023 by Wilbur Rivera MD at [facility] [employer] : INTRV CARD [id number] 12/02/2025 [id number] documented as of this encounter Advance Directives Documents on File Type Date Recorded Patient Tearoom Host Expl anation Advance Directives and Living Will 11/29/2022 ADVANCE DIRECTIVE / LIVING WILL Power of Simonizer 11/29/2022 POWER OF A TTORNEY Advance Directives and Living Will 10/24/2014 ADVANCE DIRECTIVE / LIVING WILL Power of Simonizer 10/24/2014 POWER OF A TTORNEY * Full [...] the patient have Health Care Power of Simonizer? No * No Code Date Activated Date [...] Agent [facility] Communication Bright Barakat Adult Child Health Care Frieda t (per Health Care Power of Simonizer document) Care Teams Counter Tacker Relationship Specialty Start Date End Date Florentin Calvo DO [address] [place] [address] PCP - General Internal Medicine 02/06/24 documented as of this encounter
--- OUTSIDE RECORDS SUMMARY | 2024-04-13 02:13 | External Medical Summary | Summary of Care ---
Author Name Unknown Organization [facility] Address [address] [place] [address] Phone [phone] Care Team Providers Care Human Services Manager Name Role Phone Florentin Calvo DO Primary Care Provider [phone] Reason for Visit * Reason Onset Date Comments Information 03/26/202403/26 Encounter Details Date Type Department Care Team (Late st Contact Info) Description 03/26/2024 Telephone Family Practice 65 [facility] [address] [place] [address] Florentin Calvo DO [address] [place] [address] Information (03/26) Allergies Active Allergy Reactions Criticality Noted Date [...] Dispensed Refills Start Date End Date Status Gamisfaction w/Device KitIndications:Type 2 diabetes mellitus with hemoglobin [...] Wheezing. 15 g 12 06/13/2022 Active OneTouch VerDuriana In Vitro Strip (Glucose Blood) Test blood [...] DIRECTED 100 Tablet 3 03/31/2023 Active Ipratropium [place] 0.03 % Nasal Solution (Atrovent)Indication s:Chronic rhinitis Administer 2 Sprays into nostril in the morning and 2 Sprays before bedtime. 90 mL 3 04/01/2023 Active Allopurinol 300 MG Oral Tablet (Zyloprim) Take 1 Tablet by mouth at bedtime. 90 Tablet 3 05/16/2023 Active Tiotropium [place]-Olodaterol 2.5-2.5 MCG/ACT Inhalation Aerosol Solution (Stiolto Respimat) Inhale 2 Puffs by mouth in the morning. 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 (Household - for [...] or do you have serious difficulty hearing? No-TONKA[place] can hear w/ hearing aid 03/07/2023 Are [...] Telephone Encounter - Ania Kebede LPN - 03/26/2024 5:09 PM EDT Call placed to daughter Kathy and relayed information from Dr. Wheat. Daughter acknowledged understanding. Confirmed OV with Dr. Calvo scheduled on 03/30/24. * Telephone Encounter - Steph Wheat DO - 03/26/2024 5:00 PM EDT They should not increase her oxycodone until discussed with Dr. Calvo. Dificid will likely not be covered as her C.diff was negative per discharge summary as the toxin was negative. She has allergy to vancomycin (unclear if true allergy). We can try to get this covered but will not happen over the weekend and there is no other alternative. * Telephone Encounter - Ania Kebede LPN - 03/26/2024 4:36 PM EDT Call placed to patient's daughter Kathy. Pt recently d/c from [facility]. Kathy voiced the following questions: Pt was d/c home on Oxycodone 5 mg QID prn. (Pt was previously on Oxycodone 2.5 mg every 6 hours prnprior to hosp). Daughter is asking if her pain is severe can they double her dose and give her 2 ofthe 5 mg Oxycodone (total of 10 mg). Pt is also utilizing Fentanyl patch 12 mcg/hr. Patch was changed today. Pt was d/c home on Dificid. Dificid is non-formulary. Dtr reports the Dificid will cost $3225.00 topick up. Dtr states the pharmacy has reached out to [facility] Hospitalist to see if there is an alternative. Dtr is asking Dr. Calvo's input on this. Dtr did state that pt did have a formed stool today. Notified dtr that Dr. Calvo is out of the office but the message will be forwarded to him and covering provider. Daughter is available to speak to someone on the number she provided below. * Telephone Encounter - Grace Arnold OSA - 03/26/2024 4:23 PM EDT Pts daughter, Kathy, left a voicemail requesting Hilda call her back at [phone]. She did not state why she needed a return call, just that is was in regards to Inga. documented in this encounter Plan of Treatment Upcoming Encounters Date Type Department Care Team (Late st Contact Info) Description 03/27/2024 10:30 AM EDT Scheduled Telephone [facility] [address] [place] [address] [facility], Nurse [place] [address] [place] [address] 03/28/2024 10:30 AM EDT Scheduled Telephone [facility], [facility] [address] [place] [address] [facility], Nurse [place] 132 [facility] [place] [address] 03/29/2024 9:00 AM EDT Scheduled Telephone [facility], [facility] 132 [facility] [place] [address] Coordinator, [facility] 132 [facility] [place] [address] 03/29/2024 2:30 PM EDT Home Visit [facility], [facility] 132 [facility] [place] [address] Nikolay Wu, AISHA 132 [facility] [place] [address] 03/30/2024 11:20 AM EDT Office Visit Family Practice 65 [facility] [place] 293 [place] [address] Florentin Calvo, [address] [place] [address] 04/05/2024 11:00 AM EDT Imaging [facility], [facility] [address] 04/12/2024 8:00 AM EDT Office Visit Hematology/Oncolog y [facility] [address] [facility] [place] [address] Nereyda Metz CRNP 400 [facility] [place] [address] 04/14/2024 10:50 AM EDT Office Visit Vascular Surgery, [facility] 132 [facility] [place] [address] Aj Sahni MD [address] [place] [address] 04/20/2024 3:40 PM EDT Office Visit Family Practice 65 [facility] 293 [facility], [place] [address] Florentin Calvo, DO 293 [facility], [place] [address] 05/21/2024 1:14 PM EDT Hospital Encounter OR [facility], Operating Room, [facility] - 4th Floor [address] [place] [address] Jana Vieira, DO [address] [place] [address] 05/21/2024 1:14 PM EDT - 05/21/2024 1:59 PM EDT Surgery OR [facility], Operating Room, [facility] - 4th Floor [address] [place] [address] Jana Vieira, DO [address] [place] [address] COLONOSCOPY FLEXIBLE PROXIMAL DIAGNOSTIC 06/03/2024 2:15 PM EDT Office Visit Ophthalmology, [facility] 132 [facility] [place] [address] Wilbur Benavides, DO [facility] [place] [address] 07/01/2024 2:30 PM EST Office Visit Gastroenterology, [facility] 132 [facility] [place] [address] Lacy Ronquillo CRNP [address] [place] [address] 08/09/2024 1:00 PM EST Nurse Only Ancillary 65 [facility] 293 [facility], [place] [address] College, Nurse Annual Wellness Visit [address] [address] Scheduled Procedures Name Priority Associated Diagnoses Date/Ti [...] COPD 07/31/2024 07/31/2023 CKD PHOS USE SMARTSET 25764 08/19/202407/26, 05/01/2022, 04/03/2022, Additional history exists Diabetic Foot Exam 09/15/2024 09/15/2023, 0 10/01/2022, 10/26/2021, Additional history exists GFR 09/15/2024 03/15/2024, 07/0 04/2024, 02/24/2024, Additional history exists Depression Monitoring 09/29/2024 09/29/2023 Albumin/Creatinine Ratio 12/08/2024 024, 02/21/2023, 05/01/2022, Additional history exists CKD HGB USE SMARTSET 34012 03/15/202503/15, 03/15/2024, 03/02/2024, Additional history exists TSH [...] this encounter Medical Devices Implanted Type Area Clerk Manager Device Identifier Shelf Expiration Date Model / Serial / Lot Cath Thermodilution 6fr - [id number] Implanted:Qty: 1 on 01/24/2023 by Wilbur Rivera MD at [facility] [employer] [id number] 10/15/2024 [id number] / / [id number] Clip Delivery Sytem G4 Xt - [id number] Implanted:Qty: 1 on 03/10/2023 at [facility] [employer] [id number] 04/15/2023 [id number] / / [id number] Clip Delivery Sytem G4 Xtw - [id number] Implanted:Qty: 1 on 03/10/2023 at [facility] [employer] [id number] 12/06/2023 [id number] TW / / [id number] Mirtaclip G4 - [id number] Implanted:Qty: 1 on 03/10/2023 at [facility] [employer] 11/19/2023 [id number] / / [id number] Device Watchman Flx 31mm - [id number] Implanted:Qty: 1 on 07/31/2023 by Wilbur Rivera MD at [facility] : INTRV CARD [id number] 12/02/2025 [id number] / / [id number] documented as of this encounter Advance Directives Documents on File Type Date Recorded Patient Independent Living Instructor Expl anation Advance Directives and Living Will 11/29/2022 ADVANCE DIRECTIVE / LIVING WILL Power of Clerk Manager 11/29/2022 POWER OF A TTORNEY Advance Directives and Living Will 10/24/2014 ADVANCE DIRECTIVE / LIVING WILL Power of Clerk Manager 10/24/2014 POWER OF A TTORNEY * [...] the patient have Health Care Power of Clerk Manager? No * No Code Date Activated [...] Agents on File Name Relationship Healthcare Agent [facility] p Communication Bright [facility] Adult Child Health Care Agen t (per Health Care Power of Clerk Manager document) Care Teams Human Services Manager Relationship Specialty Start Date End Date Florentin Calvo DO [address] [place] [address] PCP - General Internal Medicine 02/06/24 documented as of this encounter
--- OUTSIDE RECORDS SUMMARY | 2024-04-13 02:13 | External Medical Summary | Summary of Care ---
Author Name Unknown Organization [facility] Address [address] [place] [address] Phone [phone] Care Team Providers Care Director Of Finance Name Role Phone Florentin Calvo DO Primary Care Provider [phone] Reason for Visit * Reason Onset Date Comments [facility]: Maintenance 03/27/2024 Encounter Details Date Type Department Care Team (Late st Contact Info) Description 03/27/2024 10:30 AM EDT Scheduled Telephone [facility], [facility] [address] [place] [address] [employer], [facility] [address] [place] [address] Allergies Active Allergy Reactions Criticality Noted Date [...] as of this encounter (statuses as of 03/27/2024) Medications Medication Sig Dispensed Refills Start Date End Date Status C4X Discovery w/Device KitIndications:Type 2 diabetes mellitus with hemoglobin [...] Tablet (Lipitor)Indications :PVD (peripheral vascular disease) ([facility]),Type 2 diabetes mellitus with stage 3a chronic kidney disease and hypertension (HCC) TAKE ONE TABLET BY MOUTH EVERY DAY DIRECTED 100 Tablet 3 03/31/2023 Active Ipratropium [place] 0.03 % Nasal Solution (Atrovent)Indication s:Chronic rhinitis Administer 2 Sprays into nostril in the morning and 2 Sprays before bedtime. 90 mL 3 04/01/2023 Active Allopurinol 300 MG Oral Tablet (Zyloprim) Take 1 Tablet by mouth at bedtime. 90 Tablet 3 05/16/2023 Active Tiotropium [place]-Olodaterol 2.5-2.5 MCG/ACT Inhalation Aerosol Solution (Stiolto [...] :Chronic diastolic CHF (congestive heart failure) ([facility]) Take 2 Tablets by mouth in the morning. 200 Tablet 3 02/24/2024 Active Apixaban 2.5 MG Oral Tablet (Eliquis)Indications :Paroxysmal atrial fibrillation ([facility]) Take [...] as of this encounter (statuses as of 03/27/2024) Active Problems Problem Noted Date Diagnosed Date Compression fracture of T12 vertebra 03/12/2024 Last Assessment & Plan: Increased oxy from 2.5mg to 5mg [id number] prn Ortho spine ref, ?kyphoplasty Constipation 03/12/2024 [...] mitral valve clip implantation 03/06/2023 Atherosclerosis of [place] 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 02/13/2023 [...] Obstructive sleep apnea of adult 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 Last Assessment & Plan: Now just using [...] as of this encounter (statuses as of 03/27/2024) Resolved Problems Problem Noted Date Diagnosed Date [...] as of this encounter (statuses as of 03/27/2024) Immunizations Name Administration Dates Next Due COVID-19 mRNA, LNP-s, No Pre serve, 2-Dose Series (Moderna) 06/23/2021,10/25/2020,09/28/2020 COVID-19, LNP-s, No Preserve , Larry-sucrose, Ages 12+ (Marvel) 04/09/2022 COVID-19, MRNA-LNP, 23-24, P F, 30 [...] encounter Miscellaneous Notes * Telephone Encounter - [place], Lindsay Vilchis RN - 03/27/2024 4:31 PM EDT Images from the original note were not included. [facility] Telephonic Nurse Follow-Up Call [facility] Subprogram: Focused Care Management (3-9 months) Follow Up Call Type: Weekend Call 1642:PC to M # Spoke to son Bright. Patient identified by full name and date of . Acute issue requiring follow-up call: Other: EDIS call [facility] - 03/25/24: Scheduled EDIS visit - 03/29/24 @ ~ 1430 Objective: 03/15/2024 4:08 PM 03/10/2024 2:49 PM [...] 2.5 mg prn pain Subjective: Condition Status: EDIS call Current Concerns: Reviewed discharge instructions w/son Bright: Resume previous activity (patient declined rehab per d/c paperwork) Continue w/TLSO brace when standing and walking, encouraged to walk Weight restriction no more than 5 lbs lifting No acute concerns from son Bright Aware of [facility] - 03/29/24 Awaiting 1 prescription resolution (insurance - has call out to PCP), otherwise has all remaining prescriptions and taking as prescribed. Disposition: Weekend call scheduled and RNCM visit scheduled call Friday, Friday03/29/24 Future Visits Scheduled: Future Appointments-next 60 days Date/Time Provider Specialty Dept Phone 03/28/2024 10:30 AM Region, Nurse [facility] [phone] 03/29/2024 9:00 AM Coordinator, [facility] [phone] 03/29/2024 2:30 PM Nikolay Wu RN [facility] [phone] 03/30/2024 11:20 AM (Arrive by 11:05 AM) Florentin Calvo DO Family Medicine [phone] 04/05/2024 11:[address] Radiology [phone] 04/12/2024 8:00 AM (Arrive by 7:45 AM) Nereyda Metz CRNP Hematology Oncology [phone] 04/14/2024 10:50 AM Aj Sahni MD Vascular Surgery [phone] 04/20/2024 3:40 PM (Arrive by 3:25 PM) Florentin Calvo DO Family Medicine [phone] 06/03/2024 2:15 PM Wilbur Benavides DO Ophthalmology [phone] 07/01/2024 2:30 PM (Arrive by 2:15 PM) Lacy Ronquillo CRNP Gastroenterology [phone] 08/09/2024 1:00 PM College, Nurse Annual Wellness Visit [address] [place] [address] Hilda Chowdhury RN [facility] Continuous Drier Helper/ [place] Toll Free Number: documented in this encounter Plan of Treatment Upcoming Encounters Date Type Department Care Team (Late st Contact Info) Description 03/28/2024 10:30 AM EDT Scheduled Telephone [facility], [facility] [address] [place] [address] Region, Nurse [address] [place] [address] 03/29/2024 9:00 AM EDT Scheduled Telephone [facility], [facility] 132 [facility] [place] [address] Coordinator, [facility] 132 [facility] [place] [address] 03/29/2024 2:30 PM EDT Home Visit [facility], [facility] [address] [place] [address] Nikolay Wu, AISHA 132 [facility] [place] [address] 03/30/2024 11:20 AM EDT Office Visit Family Practice 65 [facility] [place] 293 [facility], [place] [address] Florentin Calvo, 293 [facility] [place] [address] 04/05/2024 11:00 AM EDT Imaging Vascular Lab, [address] 132 [facility] [place] [address] 04/12/2024 8:00 AM EDT Office Visit Hematology/Oncolog y [facility] [address] [place] [address] Nereyda Metz CRNP [address] [place] [address] 04/14/2024 10:50 AM EDT Office Visit Vascular Surgery, [facility] 132 [place] [address] Aj Sahni MD [address] [place] [address] 04/20/2024 3:40 PM EDT Office Visit Family Practice 65 [facility] 293 [place] [address] Florentin Calvo, DO 293 [place] [address] 05/21/2024 1:14 PM EDT [facility], [facility] - 4th Floor 400 [facility] [place] [address] Jana Vieira, DO 132 [facility] [address] 05/21/2024 1:14 PM EDT - 05/21/2024 1:59 PM EDT [facility] Room, [facility] - 4th Floor 400 [facility] [place] [address] Jana Vieira, DO [facility] [place] [address] COLONOSCOPY FLEXIBLE PROXIMAL DIAGNOSTIC 06/03/2024 2:15 PM EDT Office Visit Ophthalmology, [facility] 132 [facility] [place] [address] Wilbur Benavides, DO 21 [facility] [address] 07/01/2024 2:30 PM EST Office Visit Gastroenterology, [facility] [address] [place] [address] Lacy Ronquillo CRNP [address] [place] [address] 08/09/2024 1:00 PM EST Nurse Only Ancillary 65 [facility] 293 [facility], [place] [address] College, Nurse Annual Wellness Visit 65 [facility] 293 [facility], [place] [address] Scheduled Procedures Name Priority Associated Diagnoses Date/Ti [...] COPD 07/31/2024 07/31/2023 CKD PHOS USE SMARTSET 13113 08/19/202407/26, 05/01/2022, 04/03/2022, Additional history exists Diabetic Foot Exam 09/15/2024 09/15/2023, 0 10/01/2022, 10/26/2021, Additional history exists GFR 09/15/2024 03/15/2024, 07/0 04/2024, 02/24/2024, Additional history exists Depression Monitoring 09/29/2024 09/29/2023 Albumin/Creatinine Ratio 12/08/2024 024, 02/21/2023, 05/01/2022, Additional history exists CKD HGB USE SMARTSET 34725 03/15/202503/15, 03/15/2024, 03/02/2024, Additional history exists TSH [...] this encounter Medical Devices Implanted Type Area Button Cutting Machine Operator Device Identifier Shelf Expiration Date Model / Serial / Lot Cath Thermodilution 6fr - [id number] Implanted:Qty: 1 on 01/24/2023 by Wilbur Rivera MD at [facility] [employer] TERE [id number] 10/15/2024 [id number] / / [id number] Clip Delivery Sytem G4 Xt - [id number] Implanted:Qty: 1 on 03/10/[address] [facility] [employer] [id number] 04/15/2023 [id number] T / / [id number] Clip Delivery Sytem G4 Xtw - [id number] Implanted:Qty: 1 on 03/10/[address] [facility] [employer] [id number] 12/06/2023 [id number] TW / / [id number] Mirtaclip G4 - [id number] Implanted:Qty: 1 on 03/10/[address] [facility] [employer] 11/19/2023 [id number] / / [id number] Device Watchman Flx 31mm - [id number] Implanted:Qty: 1 on 07/31/2023 by Wilbur Rivera MD at 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 No * No Code Date Activated Date [...] Frieda mcdowell (per Health Care Power of Draw Tender document) Care Teams Director Of Finance Relationship Specialty Start Date End Date Florentin Calvo DO 293 [facility] [place] [address] PCP - General Internal Medicine 02/06/24 documented as of this encounter
--- OUTSIDE RECORDS SUMMARY | 2024-04-13 02:13 | External Medical Summary | Summary of Care ---
Author Name Unknown Organization [facility] Address [address] [place] [address] Phone [phone] Care Team Providers Care Public Health Officer Name Role Phone Florentin Calvo DO Primary Care Provider [phone] Reason for Visit * Reason Onset Date Comments [facility]: Maintenance 03/26/2024 Encounter Details Date Type Department Care Team (Late st Contact Info) Description 03/26/2024 Telephone [facility], [facility] [address] [place] [address] [facility], Nurse [address] [address] [facility]: Maintenance Allergies Active Allergy Reactions Criticality Noted Date Comments Azithromycin Other (Please comment) 12/04/2021 QTC prolongation at [facility] Celecoxib Hives,Rash High 03/24/2013 [...] Dispensed Refills Start Date End Date Status Interviewstreet w/Device KitIndications:Type 2 diabetes mellitus with hemoglobin [...] Oral Tablet (Lipitor)Indications :PVD (peripheral vascular disease) ([facility]),Type 2 diabetes mellitus with stage 3a chronic kidney disease and hypertension (HCC) TAKE ONE TABLET BY MOUTH EVERY DAY DIRECTED 100 Tablet 3 03/31/2023 Active Ipratropium Jupiter 0.03 % Nasal Solution (Atrovent)Indication s:Chronic rhinitis Administer 2 Sprays into nostril in the morning and 2 Sprays before bedtime. 90 mL 3 04/01/2023 Active Allopurinol 300 MG Oral Tablet (Zyloprim) Take 1 Tablet by mouth at bedtime. 90 Tablet 3 05/16/2023 Active Tiotropium Jupiter-Olodaterol 2.5-2.5 MCG/ACT Inhalation Aerosol Solution (Stiolto Respimat) [...] (Demadex)Indications :Chronic diastolic CHF (congestive heart failure) ([facility]) Take 2 Tablets by mouth in the morning. 200 Tablet 3 02/24/2024 Active Apixaban 2.5 MG Oral Tablet (Eliquis)Indications :Paroxysmal atrial fibrillation ([facility]) Take 1 Tablet by mouth in the [...] ression fracture of T12 vertebra, initial encounter ([facility]) Place 1 Patch over 72 hours topically [...] Plan: Increased oxy from 2.5mg to 5mg u7nunid prn Ortho spine ref, ?kyphoplasty Constipation 03/12/2024 [...] mitral valve clip implantation 03/06/2023 Atherosclerosis of 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 02/13/2023 Last Assessment & Plan: Continue statin, sotalol. 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 source of income? (Household [...] encounter Miscellaneous Notes * Telephone Encounter - Marysol Isabel LPN - 03/26/2024 8:45 AM EDT Received TT that patient d/c home from [facility] TT sent to [facility] role to schedule EDIS documented in this encounter Plan of Treatment Upcoming Encounters Date Type Department Care Team (Late st Contact Info) Description 03/30/2024 11:20 AM EDT Office Visit Family Practice [address], [place] [address] [place] [address] Florentin Calvo, DO 293 [facility], [place] [address] 04/05/2024 11:00 AM EDT Imaging Vascular Lab, [facility] 2nd [facility] [address] [place] [address] 04/12/2024 8:00 AM EDT Office [facility] [address] [place] [phone] Nereyda Metz CRNP [address] [place] [address] [place] [address] 04/14/2024 10:50 AM EDT Office Visit Vascular Surgery, [facility] 132 [facility] [place] [address] Aj Sahni MD [address] [place] [address] 04/20/2024 3:40 PM EDT Office Visit Family Practice [address], [place] [address] [place] [address] Florentin Calvo, DO [address] [place] [address] 05/21/2024 1:14 PM EDT Hospital Encounter OR [facility], Operating Room, [facility] - 4th Floor [address] [place] [address] Jana Vieira, DO 132 [facility] [place] [address] 05/21/2024 1:14 PM EDT - 05/21/2024 1:59 PM EDT Surgery OR [facility], Operating Room, [facility] - 4th Floor [address] [place] [address] Jana Vieira, DO 132 [facility] [place] [address] COLONOSCOPY FLEXIBLE PROXIMAL DIAGNOSTIC 06/03/2024 2:15 PM EDT Office Visit Ophthalmology, [facility] 132 [facility] [place] [address] Wilbur Benavides, DO [address] [place] [address] 07/01/2024 2:30 PM EST Office Visit Gastroenterology, [facility] 132 [facility] [place] [address] Lacy Ronquillo CRNP [address] [place] [address] 08/09/2024 1:00 PM EST Nurse Only Ancillary [address], [place] [address] [place] [address] College, Nurse Annual Wellness Visit [address] [place] [address] Scheduled Procedures Name Priority Associated Diagnoses Date/Ti [...] COPD 07/31/2024 07/31/2023 CKD PHOS USE SMARTSET 74609 08/19/202407/26, 05/01/2022, 04/03/2022, Additional history exists Diabetic Foot Exam 09/15/2024 09/15/2023, 0 10/01/2022, 10/26/2021, Additional history exists GFR 09/15/2024 03/15/2024, 07/0 04/2024, 02/24/2024, Additional history exists Depression Monitoring 09/29/2024 09/29/2023 Albumin/Creatinine Ratio 12/08/2024 024, 02/21/2023, 05/01/2022, Additional history exists CKD HGB USE SMARTSET 32287 03/15/202503/15, 03/15/2024, 03/02/2024, Additional history exists TSH [...] this encounter Medical Devices Implanted Type Area Scale Expert Device Identifier Shelf Expiration Date Model / Serial / Lot Cath Thermodilution 6fr - [id number] Implanted:Qty: 1 on 01/24/2023 by Wilbur Rivera MD at [facility] [place] [employer] TERE [id number] 10/15/2024 [id number] / / [id number] Clip Delivery Sytem G4 Xt - [id number] Implanted:Qty: 1 on 03/10/2023 at [facility] [employer] [id number] 04/15/2023 [id number] T / / [id number] Clip Delivery Sytem G4 Xtw - [id number] Implanted:Qty: 1 on 03/10/2023 at [facility] [employer] [id number] 12/06/2023 [id number] TW / / [id number] Mirtaclip G4 - [id number] Implanted:Qty: 1 on 03/10/2023 at [facility] [employer] 11/19/2023 [id number] / / [id number] Device Watchman Flx 31mm - [id number] Implanted:Qty: 1 on 07/31/2023 by Wilbur Rivera MD at [facility] [employer] : INTRV CARD [id number] 12/02/2025 [id number] documented as of this encounter Advance Directives Documents on File Type Date 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 No * No Code Date Activated Date [...] Agents on File Name Relationship Healthcare Agent [facility] p Communication Bright [place] Adult Child Health Care Agen t (per Health Care Power of Specialty Molder document) Care Teams Public Health Officer Relationship Specialty Start Date End Date Florentin Calvo DO [address] [place] [address] PCP - General Internal Medicine 02/06/24 documented as of this encounter
--- OUTSIDE RECORDS SUMMARY | 2024-04-13 02:13 | External Medical Summary | Summary of Care ---
Author Name Unknown Organization [facility] Address [address] [place] [address] Phone [phone] Care Team Providers Care Branch Customer Service Representative Name Role Phone Florentin Calvo DO Primary Care Provider [phone] Reason for Visit * Reason Onset Date Comments Appointment 03/26/2024 Encounter Details Date Type Department Care Team (Late st Contact Info) Description 03/26/2024 Telephone [facility], [facility] [address] [place] [address] Services, Scheduling [address] [place] [address] Appointment (/) Allergies Active Allergy Reactions Criticality Noted Date Comments Azithromycin Other (Please comment) 12/04/2021 QTC prolongation at [facility] Celecoxib Hives,Rash High 03/24/2013 Other [...] Dispensed Refills Start Date End Date Status Visual RealmTouch Verio w/Device KitIndications:Type 2 diabetes mellitus with [...] Oral Tablet (Lipitor)Indications :PVD (peripheral vascular disease) ([facility]),Type 2 diabetes mellitus with stage 3a chronic kidney disease and hypertension ([facility]) TAKE ONE TABLET BY MOUTH EVERY DAY DIRECTED 100 Tablet 3 03/31/2023 Active Ipratropium [place] 0.03 % Nasal Solution (Atrovent)Indication s:Chronic rhinitis Administer 2 Sprays into nostril in the morning and 2 Sprays before bedtime. 90 mL 3 04/01/2023 Active Allopurinol 300 MG Oral Tablet (Zyloprim) Take 1 Tablet by mouth at bedtime. 90 Tablet 3 05/16/2023 Active Tiotropium [place]-Olodaterol 2.5-2.5 MCG/ACT Inhalation Aerosol Solution (Stiolto Respimat) [...] ression fracture of T12 vertebra, initial encounter ([facility]) Place 1 Patch over 72 hours [...] Plan: Increased oxy from 2.5mg to 5mg d0gnunv prn Ortho spine ref, ?kyphoplasty Constipation 03/12/2024 [...] mitral valve clip implantation 03/06/2023 Atherosclerosis of 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 02/13/2023 Last Assessment & Plan: Continue statin, sotalol. 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 [place] can hear w/ hearing aid 03/07/2023 Are [...] Telephone Encounter - Charisse Ivy OSA - 03/26/2024 9:56 AM EDT TT req to schedule EDIS I found Friday, 03/29@230 and called son to give info and also scheduled weekend calls for pre EDIS visit documented in this encounter Plan of Treatment Upcoming Encounters Date Type Department Care Team (Late st Contact Info) Description 03/27/2024 10:30 AM EDT Scheduled Telephone [facility], [facility] [address] [place] [address] Region, Nurse [address] [place] [address] 03/28/2024 10:30 AM EDT Scheduled Telephone [facility], [facility] [address] [place] [address] Region, Nurse [address] [place] [address] 03/29/2024 9:00 AM EDT Scheduled Telephone [facility], [facility] [address] [place] [address] Coordinator, [place] [address] [address] [place] [address] 03/29/2024 2:30 PM EDT Home Visit [facility], [facility] 132 [facility] [place] [address] Nikolay Wu, RN 132 [facility] [place] [address] 03/30/2024 11:20 AM EDT Office Visit Family Practice [address] [place] [address] [address] [facility] [address] Florentin Calvo, 293 [facility] [address] 04/05/2024 11:00 AM EDT Imaging Vascular Lab, [facility] 2nd [facility] 132 [facility] [place] [address] 04/12/2024 8:00 AM EDT Office Visit Hematology/Oncolog y [facility] [address] [facility] [phone] Nereyda Metz CRNP [address] [place] [address] 04/14/2024 10:50 AM EDT Office Visit Vascular Surgery, [facility] 132 [facility] [place] [address] Aj Sahni MD [address] [place] [address] 04/20/2024 3:40 PM EDT Office Visit Family Practice [address] [place] [address] [address] [facility] [address] Florentin Calvo, 293 [facility] [address] 05/21/2024 1:14 PM EDT Hospital Encounter OR [facility], Operating Room, [facility] - 4th Floor [address] [place] [address] Jana Vieira, DO [address] [place] [address] 05/21/2024 1:14 PM EDT - 05/21/2024 1:59 PM EDT Surgery OR [facility], Operating Room, [facility] - 4th Floor [address] [place] [address] Jana Vieira, DO [address] [place] [address] COLONOSCOPY FLEXIBLE PROXIMAL DIAGNOSTIC 06/03/2024 2:15 PM EDT Office Visit Ophthalmology, [facility] 132 [facility] [place] [address] Wilbur Benavides, DO [facility] [place] [address] 07/01/2024 2:30 PM EST Office Visit Gastroenterology, [facility] 132 [facility] [place] [address] Lacy Ronquillo CRNP 132 [facility] [place] [address] 08/09/2024 1:00 PM EST Nurse Only Ancillary 65 [facility] [address] [facility] [place] [address] College, Nurse Annual Wellness Visit [address] [place] [address] Scheduled Procedures Name Priority Associated Diagnoses Date/Ti [...] COPD 07/31/2024 07/31/2023 CKD PHOS USE SMARTSET 99686 08/19/202407/26, 05/01/2022, 04/03/2022, Additional history exists Diabetic Foot Exam 09/15/2024 09/15/2023, 0 10/01/2022, 10/26/2021, Additional history exists GFR 09/15/2024 03/15/2024, 07/0 04/2024, 02/24/2024, Additional history exists Depression Monitoring 09/29/2024 09/29/2023 Albumin/Creatinine Ratio 12/08/2024 024, 02/21/2023, 05/01/2022, Additional history exists CKD HGB USE SMARTSET 19649 03/15/202503/15, 03/15/2024, 03/02/2024, Additional history exists TSH [...] this encounter Medical Devices Implanted Type Area Dip Filler Device Identifier Shelf Expiration Date Model / Serial / Lot Cath Thermodilution 6fr - [id number] Implanted:Qty: 1 on 01/24/2023 by Wilbur Rivera MD at [facility] [place] [employer] TERE [id number] 10/15/2024 [id number] / / [id number] Clip Delivery Sytem G4 Xt - [id number] Implanted:Qty: 1 on 03/10/2023 at [facility] [employer] [id number] 04/15/2023 [id number] T / / [id number] Clip Delivery Sytem G4 Xtw - [id number] Implanted:Qty: 1 on 03/10/2023 at [facility] [employer] [id number] 12/06/2023 [id number] TW / / [id number] Mirtaclip G4 - [id number] Implanted:Qty: 1 on 03/10/2023 at [facility] [employer] 11/19/2023 [id number] / / [id number] Device Watchman Flx 31mm - [id number] Implanted:Qty: 1 on 07/31/2023 by Wilbur Rivera MD at [facility] [employer] : INTRV CARD [id number] 12/02/2025 [id number] documented as of this encounter Advance Directives Documents on File Type Date Recorded 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 No * No Code Date Activated Date [...] Name Relationship Healthcare Agent [facility] Communication Bright [place] Adult Child Health Care Frieda t (per Health Care Power of Mail List Librarian document) Care Teams Branch Customer Service Representative Relationship Specialty Start Date End Date Florentin Calvo DO [address] [place] [address] PCP - General Internal Medicine 02/06/24 documented as of this encounter
--- OUTSIDE RECORDS SUMMARY | 2024-04-13 02:14 | External Medical Summary | Summary of Care ---
Author Name Unknown Organization [facility] Address [address] [place] [address] Phone [phone] Care Team Providers Care Whipper Name Role Phone Florentin Calvo DO Primary Care Provider Reason for Visit * Reason Onset Date Comments Encounter Created in Error 03/16/2024 Encounter Details Date Type Department Care Team (Late st Contact Info) Description 03/16/2024 9:30 AM EDT Scheduled Telephone [facility] [place], [facility] [address] [address] Coordinator, [facility] 132 [facility] [place] [address] Allergies Active Allergy Reactions Criticality Noted Date [...] as of this encounter (statuses as of 03/22/2024) Medications Medication Sig Dispensed Refills Start Date End Date Status CloudTalk w/Device KitIndications:Type 2 diabetes mellitus with hemoglobin [...] 15 g 12 06/13/2022 Active OneTouch VerDigital Performance In Vitro Strip (Glucose Blood) Test blood sugars up to 2 times a day E11.9 200 Strip 3 12/20/2022 Active Atorvastatin Calcium 20 MG Oral Tablet (Lipitor)Indication s:PVD (peripheral vascular disease) ([facility]),Type 2 diabetes mellitus with stage 3a chronic kidney disease and hypertension (HCC) TAKE ONE TABLET BY MOUTH EVERY DAY DIRECTED 100 Tablet 3 03/31/2023 Active Ipratropium [place] 0.03 % Nasal Solution (Atrovent)Indicatio ns:Chronic rhinitis Administer 2 Sprays into nostril in the morning and 2 Sprays before bedtime. 90 mL 3 04/01/2023 Active Allopurinol 300 MG Oral Tablet (Zyloprim) Take 1 Tablet by mouth at bedtime. 90 Tablet 3 05/16/2023 Active Tiotropium [place]-Olodaterol 2.5-2.5 MCG/ACT Inhalation Aerosol Solution (Stiolto Respimat) [...] diastolic CHF (congestive heart failure) ([facility]) Take 2 Tablets by mouth in the morning. 200 Tablet 3 02/24/2024 Active Apixaban 2.5 MG Oral Tablet (Eliquis)Indication s:Paroxysmal atrial fibrillation ([facility]) Take 1 Tablet by mouth [...] of T12 vertebra, initial encounter ([facility]) Place 1 Patch over 72 [...] as of this encounter (statuses as of 03/22/2024) Active Problems Problem Noted Date Diagnosed Date Compression fracture of T12 vertebra 03/12/2024 Last Assessment & Plan: Increased oxy from 2.5mg to 5mg [id number] prn Ortho spine ref, ?kyphoplasty Constipation 03/12/2024 [...] mitral valve clip implantation 03/06/2023 Atherosclerosis of [place] 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 02/13/2023 [...] Obstructive sleep apnea of adult 09/09/2014 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 Last Assessment & Plan: Now just [...] as of this encounter (statuses as of 03/22/2024) Resolved Problems Problem Noted Date Diagnosed Date [...] as of this encounter (statuses as of 03/22/2024) Immunizations Name Administration Dates Next Due COVID-19 mRNA, LNP-s, No Pre serve, 2-Dose Series (Moderna) 06/23/2021,10/25/2020,09/28/2020 COVID-19, LNP-s, No Preserve , Larry-sucrose, Ages 12+ (Pfizer) 04/09/2022 COVID-19, MRNA-LNP, 23-24, P F, 30 MCG/0.3 mL, 12 YRS AND ABOVE, IM (Multicast Media-Comirnaty) 06/09/2023 Covid-19, Mrna, Lnp-s, Pf, B ivalent, [...] or do you have serious difficulty hearing? No-[place] can hear w/ hearing aid 03/07/2023 Are [...] Home, [facility] [address] [place] [address] Coordinator, [facility] [address] [place] [address] 03/25/2024 8:30 AM EDT Office Visit Hematology/Oncolog y [facility] 200 [facility] [place] [id number] Nereyda Metz CRNP [facility] [address] 03/30/2024 11:20 AM EDT Office Visit Family Practice 65 [facility] 293 [facility], [place] [address] Florentin Calvo, 293 [facility] [place] [address] 04/01/2024 11:00 AM EDT [facility] Visit [facility] 132 [facility] [place] [address] Michelle Hurt RN [address] [place] [address] 04/05/2024 11:00 AM EDT Imaging Vascular Lab, [facility] 2nd [facility] [place] 132 [facility] [place] [address] 04/14/2024 10:50 AM EDT Office Visit Vascular Surgery, [facility] 132 [facility] [place] [address] jA Sahni MD [address] [place] [address] 04/20/2024 3:40 PM EDT Office Visit Family Practice [address], [place] 293 [facility] [place] [address] Florentin Calvo, DO 293 [facility] [place] [address] 05/21/2024 1:14 PM EDT Hospital Encounter OR [facility], Operating Room, [facility] - 4th Floor 400 [facility] [place] [address] Jana Vieira, DO 132 [facility] [place] [address] 05/21/2024 1:14 PM EDT - 05/21/2024 1:59 PM EDT Surgery OR [facility], Operating Room, [facility] 400 [facility] [place] [address] Jana Vieira, DO [address] [place] [address] COLONOSCOPY FLEXIBLE PROXIMAL DIAGNOSTIC 06/03/2024 2:15 PM EDT Office Visit Ophthalmology, [facility] 132 [facility] [place] [address] Wilbur Benavides, DO [facility] [place] [address] 07/01/2024 2:30 PM EST Office Visit Gastroenterology, [facility] [address] [place] [address] Lacy Ronquillo CRNP [address] [place] [address] 08/09/2024 1:00 PM EST Nurse Only Ancillary 65 [facility] 293 [facility] [place] [address] College, Nurse Annual Wellness Visit [address] [facility] 293 [facility] [address] Scheduled Procedures Name Priority Associated Diagnoses Date/Ti [...] COPD 07/31/2024 07/31/2023 CKD PHOS USE SMARTSET 62178 08/19/202407/26, 05/01/2022, 04/03/2022, Additional history exists Diabetic Foot Exam 09/15/2024 09/15/2023, 0 10/01/2022, 10/26/2021, Additional history exists GFR 09/15/2024 03/15/2024, 07/0 04/2024, 02/24/2024, Additional history exists Depression Monitoring 09/29/2024 09/29/2023 Albumin/Creatinine Ratio 12/08/2024 024, 02/21/2023, 05/01/2022, Additional history exists CKD HGB USE SMARTSET 51707 03/15/202503/15, 03/15/2024, 03/02/2024, Additional history exists TSH [...] this encounter Medical Devices Implanted Type Area Housing Coordinator Device Identifier Shelf Expiration Date Model / Serial / Lot Cath Thermodilution 6fr - [id number] Implanted:Qty: 1 on 01/24/2023 by Wilbur Rivera MD at [facility] [employer] TERE [id number] 10/15/2024 [id number] / / [id number] Clip Delivery Sytem G4 Xt - [id number] Implanted:Qty: 1 on 03/10/[address] [facility] ZetrOZ [id number] 04/15/2023 [id number] T / / [id number] Clip Delivery Sytem G4 Xtw - [id number] Implanted:Qty: 1 on 03/10/[address] [facility] [employer]Z [id number] 12/06/2023 [id number] / / [id number] Mirtaclip G4 - [id number] Implanted:Qty: 1 on 03/10/[address] [facility] [employer]Z 11/19/2023 [id number] / / [id number] Device Watchman Flx 31mm - [id number] Implanted:Qty: 1 on 07/31/2023 by Wilbur Rivera MD at [facility] [employer] : INTRV CARD [id number] 12/02/2025 [id number] / / [id number] documented as of this encounter Advance Directives Documents on File Type Date Recorded Patient Court Monitor Expl anation Advance Directives and Living Will 11/29/2022 ADVANCE DIRECTIVE / LIVING WILL Power of Fabrication Supervisor 11/29/2022 POWER OF A TTORNEY Advance Directives and Living Will 10/24/2014 ADVANCE DIRECTIVE / LIVING WILL Power of Fabrication Supervisor 10/24/2014 POWER OF A TTORNEY * [...] the patient have Health Care Power of Fabrication Supervisor? No * No Code Date Activated [...] Agen t (per Health Care Power of Fabrication Supervisor document) Care Teams Whipper Relationship Specialty Start Date End Date Florentin Calvo DO 293 [facility] [place] [address] PCP - General Internal Medicine 02/06/24 documented as of this encounter
--- OUTSIDE RECORDS SUMMARY | 2024-04-13 02:14 | External Medical Summary | Summary of Care ---
Author Name Unknown Organization [facility] Address [address] [place] [address] Phone [phone] Care Team Providers Care Finance Analyst Name Role Phone Florentin Calvo DO Primary Care Provider [phone] Encounter Details Date Type Department Care Team (Late st Contact Info) Description 03/23/2024 Population Health External Data Unspecified Department Allergies [...] as of this encounter (statuses as of 03/23/2024) Medications Medication Sig Dispensed Refills Start Date End Date Status VirtwayTouch Verio w/Device KitIndications:Type 2 diabetes mellitus with hemoglobin A1c goal of less than 7.0% ([facility]) Use up to 1 times [...] for Wheezing. 15 g 12 06/13/2022 Active VirtwayTouch MySmartPrice In Vitro Strip (Glucose Blood) Test blood sugars up to 2 times a day E11.9 200 Strip 3 12/20/2022 Active Atorvastatin Calcium 20 MG Oral Tablet (Lipitor)Indications :PVD (peripheral vascular disease) ([facility]),Type 2 diabetes mellitus with stage 3a chronic kidney disease and hypertension ([facility]) TAKE ONE TABLET BY MOUTH EVERY DAY DIRECTED 100 Tablet 3 03/31/2023 Active Ipratropium [place] 0.03 % Nasal Solution (Atrovent)Indication s:Chronic rhinitis Administer 2 Sprays into nostril in the morning and 2 Sprays before bedtime. 90 mL 3 04/01/2023 Active Allopurinol 300 MG Oral Tablet (Zyloprim) Take 1 Tablet by mouth at bedtime. 90 Tablet 3 05/16/2023 Active Tiotropium [place]-Olodaterol 2.5-2.5 MCG/ACT Inhalation Aerosol Solution (Stiolto Respimat) [...] fracture of T12 vertebra, initial encounter ([facility]) Place 1 Patch over 72 [...] as of this encounter (statuses as of 03/23/2024) Active Problems Problem Noted Date Diagnosed Date Compression fracture of T12 vertebra 03/12/2024 Last Assessment & Plan: Increased oxy from 2.5mg to 5mg [id number] prn Ortho spine ref, ?kyphoplasty Constipation 03/12/2024 [...] mitral valve clip implantation 03/06/2023 Atherosclerosis of [place] 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 02/13/2023 [...] Obstructive sleep apnea of adult 09/09/2014 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 (Household - for [...] Description 03/24/2024 10:00 AM EDT Scheduled Telephone ising at Home, [facility] 132 [facility] [place] [address] Coordinator, [facility] [address] [place] [address] 03/25/2024 8:30 AM EDT Office Visit Hematology/Oncolog y [facility] 200 [facility] [place] [address] Nereyda Metz CRNP [address] [place] [address] 03/30/2024 11:20 AM EDT Office Visit Family Practice 65 [facility] [address] [place] [address] Florentin Calvo, [address] [place] [address] 04/05/2024 11:00 AM EDT Imaging Vascular Lab, [facility] 2nd [facility] 132 [facility] [place] [address] 04/14/2024 10:50 AM EDT Office Visit Vascular Surgery, [facility] 132 [facility] [place] [address] Aj Sahni MD [address] [place] [address] 04/20/2024 3:40 PM EDT Office Visit Family Practice 65 [facility] 293 [facility], [place] [address] Florentin Calvo, DO 293 [facility], [place] [address] 05/21/2024 1:14 PM EDT Hospital Encounter OR [facility], Operating Room, [facility] - 4th Floor [address] [place] [address] Jana Vieira, DO [address] [place] [address] 05/21/2024 1:14 PM EDT - 05/21/2024 1:59 PM EDT Surgery OR [facility], Operating Room, [facility] - 4th Floor [address] [place] [address] Jana Vieira, DO [address] [place] [address] COLONOSCOPY FLEXIBLE PROXIMAL DIAGNOSTIC 06/03/2024 2:15 PM EDT Office Visit Ophthalmology, [facility] 132 [facility] [place] [address] Wilbur Benavides, DO [facility] [place] [address] 07/01/2024 2:30 PM EST Office Visit Gastroenterology, [facility] 132 [facility] [place] [address] Lacy Ronquillo CRNP [address] [place] [address] 08/09/2024 1:00 PM EST Nurse Only Ancillary 65 [facility] 293 [facility], [place] [address] College, Nurse Annual Wellness Visit [address] [id number] Scheduled Procedures Name Priority Associated Diagnoses Date/Ti [...] COPD 07/31/2024 07/31/2023 CKD PHOS USE SMARTSET 31645 08/19/202407/26, 05/01/2022, 04/03/2022, Additional history exists Diabetic Foot Exam 09/15/2024 09/15/2023, 0 10/01/2022, 10/26/2021, Additional history exists GFR 09/15/2024 03/15/2024, 07/0 04/2024, 02/24/2024, Additional history exists Depression Monitoring 09/29/2024 09/29/2023 Albumin/Creatinine Ratio 12/08/2024 024, 02/21/2023, 05/01/2022, Additional history exists CKD HGB USE SMARTSET 94566 03/15/202503/15, 03/15/2024, 03/02/2024, Additional history exists TSH [...] this encounter Medical Devices Implanted Type Area Extractor Operator Solvent Process Device Identifier Shelf Expiration Date Model / Serial / Lot Cath Thermodilution 6fr - [id number] Implanted:Qty: 1 on 01/24/2023 by Wilbur Rivera MD at [facility] [employer] [employer] TERE [id number] 10/15/2024 [id number] / / [id number] Clip Delivery Sytem G4 Xt - [id number] Implanted:Qty: 1 on 03/10/[address] [facility] [employer] [id number] 04/15/2023 [id number] T / / [id number] Clip Delivery Sytem G4 Xtw - [id number] Implanted:Qty: 1 on 03/10/[address] [facility] [employer] [id number] 12/06/2023 [id number] TW / / [id number] Mirtaclip G4 - [id number] Implanted:Qty: 1 on 03/10/[address] [facility] [employer] 11/19/2023 [id number] / / [id number] Device Watchman Flx 31mm - [id number] Implanted:Qty: 1 on 07/31/2023 by Wilbur Rivera MD at [facility] [employer] : INTRV CARD [id number] 12/02/2025 [id number] documented as of this encounter Advance Directives Documents on File Type Date Recorded Patient Acute Care Certified Nursing Assistant Expl anation Advance Directives and Living Will 11/29/2022 ADVANCE DIRECTIVE / LIVING WILL Power of Delivery Representative 11/29/2022 POWER OF A TTORNEY Advance Directives and Living Will 10/24/2014 ADVANCE DIRECTIVE / LIVING WILL Power of Delivery Representative 10/24/2014 POWER OF A TTORNEY * Full [...] the patient have Health Care Power of Delivery Representative? No * No Code Date Activated Date [...] Name Relationship Healthcare Agent [facility] p Communication Bright Yuval Adult Child Health Care Agen t (per Health Care Power of Delivery Representative document) Care Teams Finance Analyst Relationship Specialty Start Date End Date Florentin Calvo DO [address] [place] [address] PCP - General Internal Medicine 02/06/24 documented as of this encounter
--- OUTSIDE RECORDS SUMMARY | 2024-04-13 02:14 | External Medical Summary | Summary of Care ---
Author Name Unknown Organization [facility] Address [address] [place] [address] Phone [phone] Care Team Providers Care Shuttle Operator Name Role Phone Florentin Calvo DO Primary Care Provider [phone] Reason for Visit * Reason Onset Date Comments Advice 03/18/2024 Encounter Details Date Type Department Care Team (Late st Contact Info) Description 03/18/2024 Telephone [facility] [address] [place] [address] Services, [facility] [address] [place] [address] Advice Allergies Active Allergy Reactions Criticality Noted Date Comments Azithromycin Other (Please comment) 12/04/[address] [facility] Celecoxib Hives,Rash High 03/24/2013 Other reaction(s): [...] Dispensed Refills Start Date End Date Status Huodongxing w/Device KitIndications:Type 2 diabetes mellitus with hemoglobin [...] Oral Tablet (Lipitor)Indications :PVD (peripheral vascular disease) ([facility]),Type 2 diabetes mellitus with stage 3a chronic kidney disease and hypertension ([facility]) TAKE ONE TABLET BY MOUTH EVERY DAY DIRECTED 100 Tablet 3 03/31/2023 Active Ipratropium [place] 0.03 % Nasal Solution (Atrovent)Indication s:Chronic rhinitis Administer 2 Sprays into nostril in the morning and 2 Sprays before bedtime. 90 mL 3 04/01/2023 Active Allopurinol 300 MG Oral Tablet (Zyloprim) Take 1 Tablet by mouth at bedtime. 90 Tablet 3 05/16/2023 Active Tiotropium [place]-Olodaterol 2.5-2.5 MCG/ACT Inhalation Aerosol Solution (Stiolto Respimat) [...] ression fracture of T12 vertebra, initial encounter ([facility]) Place 1 Patch over 72 hours topically [...] Plan: Increased oxy from 2.5mg to 5mg [id number] prn Ortho spine ref, ?kyphoplasty Constipation 03/12/2024 [...] mitral valve clip implantation 03/06/2023 Atherosclerosis of [place] 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 02/13/2023 Last Assessment & Plan: Continue statin, sotalol. ASA History of TIA (transient ischemic attack) 11/29 Last Assessment & Plan: -Recent admission to 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) 06/09/2023 Covid-19, Mrna, Lnp-s, Pf, B [...] encounter Miscellaneous Notes * Telephone Encounter - Rafael Vivas RN - 03/22/2024 2:51 PM EDT Called to relay Ventura Moya's message. * Telephone Encounter - Juliana Reed OSA - 03/18/2024 3:56 PM EDT Neuroscience Phone Call Form- Requested Information from caller: Who is calling (not pt) name: Kathy relationship: Adult Child- Daughter Provider patient is established with: What is the concern or issue they are having: Kathy called in stating pt Inga was denied by imaging to receive a Dexa Scan in their surrounding locations due to reasons in regards to her inplated medical devices. Kathy would like a better understanding of how important this Dexa is to her mother as they we're told the only 2 locations she can be seen for this is in [facility] in which both are over 2 hours away. Kathy would like a return call as she is the one who will be traveling all that distance. Any additional details to add: no Phone number for nurse to call back: [phone] documented in this encounter Plan of Treatment Upcoming Encounters Date Type Department Care Team (Late st Contact Info) Description 03/24/2024 10:00 AM EDT Scheduled Telephone [facility], [facility] 132 [facility] [place] [address] Coordinator, [facility] [place] [address] 03/25/2024 8:30 AM EDT Office Visit Hematology/Oncolog y [facility] [address] [place] [address] Nereyda Metz CRNP 400 [facility] [place] [address] 03/30/2024 11:20 AM EDT Office Visit Family Practice [address] [place] [address] 293 [place] [address] Florentin Calvo, 293 [place] [address] 04/05/2024 11:00 AM EDT Imaging Vascular Lab, [facility] 2nd [facility] 132 [facility] [place] [address] 04/14/2024 10:50 AM EDT Office Visit Vascular Surgery, [facility] 132 [facility] [address] Aj Sahni MD [address] [place] [address] 04/20/2024 3:40 PM EDT Office Visit Family Practice [address] [place] [address] 293 [facility], [place] [address] Florentin Calvo, 293 [facility], [place] [address] 05/21/2024 1:14 PM EDT Hospital Encounter OR [facility], Operating Room, [facility] - 4th Floor 400 [facility] [place] [address] Jana Vieira, DO 132 [place] [address] 05/21/2024 1:14 PM EDT - 05/21/2024 1:59 PM EDT Surgery OR [facility], Operating Room, [facility] - 4th Floor 400 [facility] [place] [address] Jana Vieira, DO [address] [place] [address] COLONOSCOPY FLEXIBLE PROXIMAL DIAGNOSTIC 06/03/2024 2:15 PM EDT Office Visit Ophthalmology, [facility] 132 [facility] [place] [address] Wilbur Benavides, DO [facility] [place] [address] 07/01/2024 2:30 PM EST Office Visit Gastroenterology, [facility] 132 [facility] [place] [address] Lacy Ronquillo CRNP 132 [facility] [address] 08/09/2024 1:00 PM EST Nurse Only Ancillary 65 [facility] 293 [facility], [place] [address] College, Nurse Annual Wellness Visit [address], [place] [address] Scheduled Procedures Name Priority Associated Diagnoses Date/Ti [...] COPD 07/31/2024 07/31/2023 CKD PHOS USE SMARTSET 12091 08/19/202407/26, 05/01/2022, 04/03/2022, Additional history exists Diabetic Foot Exam 09/15/2024 09/15/2023, 0 10/01/2022, 10/26/2021, Additional history exists GFR 09/15/2024 03/15/2024, 07/0 04/2024, 02/24/2024, Additional history exists Depression Monitoring 09/29/2024 09/29/2023 Albumin/Creatinine Ratio 12/08/2024 024, 02/21/2023, 05/01/2022, Additional history exists CKD HGB USE SMARTSET 17600 03/15/202503/15, 03/15/2024, 03/02/2024, Additional history exists TSH [...] this encounter Medical Devices Implanted Type Area Graduate Civil Engineer Device Identifier Shelf Expiration Date Model / Serial / Lot Cath Thermodilution 6fr - [id number] Implanted:Qty: 1 on 01/24/2023 by Wilbur Rivera MD at [facility] [employer] TERE [id number] 10/15/2024 [id number] / / [id number] Clip Delivery Sytem G4 Xt - [id number] Implanted:Qty: 1 on 03/10/2023 at [facility] [employer] [id number] 04/15/2023 [id number] T / / [id number] Clip Delivery Sytem G4 Xtw - [id number] Implanted:Qty: 1 on 03/10/2023 at [facility] [employer] [id number] 12/06/2023 [id number] TW / / [id number] Mirtaclip G4 - [id number] Implanted:Qty: 1 on 03/10/2023 at [facility] [employer] 11/19/2023 [id number] / / [id number] Device Watchman Flx 31mm - [id number] Implanted:Qty: 1 on 07/31/2023 by Wilbur Rivera MD at [facility] [employer] : INTRV CARD [id number] 12/02/2025 [id number] documented as of this encounter Advance Directives Documents on File Type Date Recorded Patient Web Project Manager Expl anation Advance Directives and Living Will 11/29/2022 ADVANCE DIRECTIVE / LIVING WILL Power of Chain Tender 11/29/2022 POWER OF A TTORNEY Advance Directives and Living Will 10/24/2014 ADVANCE DIRECTIVE / LIVING WILL Power of Chain Tender 10/24/2014 POWER OF A TTORNEY * [...] the patient have Health Care Power of Chain Tender? No * No Code Date Activated [...] Agents on File Name Relationship Healthcare Agent [facility] Communication Bright Yuval Adult Child Health Care Frieda t (per Health Care Power of Chain Tender document) Care Teams Shuttle Operator Relationship Specialty Start Date End Date Florentin Calvo DO 293 [place] [address] PCP - General Internal Medicine 02/06/24 documented as of this encounter
--- OUTSIDE RECORDS SUMMARY | 2024-04-13 02:14 | External Medical Summary | Summary of Care ---
Author Name Unknown Organization [facility] Address [address] [place] [address] Phone [phone] Care Team Providers Care Foreman/Pile Driving And Erection Name Role Phone Florentin Calvo DO Primary Care Provider [phone] Reason for Visit * Reason Onset Date Comments Encounter Created in Error 03/15/2024 Encounter Details Date Type Department Care Team (Late st Contact Info) Description 03/15/2024 10:45 AM EDT Scheduled Telephone [facility] [place], [facility] 132 [place] [address] Coordinator, [facility] 132 [facility] [place] [address] Allergies Active Allergy Reactions Criticality Noted Date [...] Dispensed Refills Start Date End Date Status I Gotchu w/Device KitIndications:Type 2 diabetes mellitus with hemoglobin [...] Wheezing. 15 g 12 06/13/2022 Active OneTouch VerNeurolink In Vitro Strip (Glucose Blood) Test blood sugars up to 2 times a day E11.9 200 Strip 3 12/20/2022 Active Atorvastatin Calcium 20 MG Oral Tablet (Lipitor)Indication s:PVD (peripheral vascular disease) ([facility]),Type 2 diabetes mellitus with stage 3a chronic kidney disease and hypertension ([facility]) TAKE ONE TABLET BY MOUTH EVERY DAY DIRECTED 100 Tablet 3 03/31/2023 Active Ipratropium [place] 0.03 % Nasal Solution (Atrovent)Indicatio ns:Chronic rhinitis Administer 2 Sprays into nostril in the morning and 2 Sprays before bedtime. 90 mL 3 04/01/2023 Active Allopurinol 300 MG Oral Tablet (Zyloprim) Take 1 Tablet by mouth at bedtime. 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 (Household - for [...] or do you have serious difficulty hearing? No-UMKUMIUT can hear w/ hearing aid 03/07/2023 Are [...] AM EDT Scheduled Telephone [facility], [facility] 132 [facility] [place] [address] Coordinator, [facility] [address] [place] [address] 03/25/2024 8:30 AM EDT Office Visit Hematology/Oncolog y [facility] [address] [place] [facility] [place] [phone] Nereyda Metz CRNP 400 [place] [address] 03/30/2024 11:20 AM EDT Office Visit Family Practice [address] [place] [address] 293 [facility] [place] [address] Florentin Calvo, [address] [place] [address] 04/01/2024 11:00 AM EDT Home Visit [facility], [facility] 132 [facility] [place] [address] Michelle Hurt RN 132 [facility] [place] [address] 04/05/2024 11:00 AM EDT Imaging Vascular Lab, [facility] 2nd [facility] [address] [place] [address] 04/14/2024 10:50 AM EDT Office Visit Vascular Surgery, [facility] 132 [facility] [place] [address] Aj Sahni MD [address] [place] [address] 04/20/2024 3:40 PM EDT Office Visit Family Practice 65 [facility] 293 [facility], [place] [address] Florentin Calvo, DO 293 [place] [address] 05/21/2024 1:14 PM EDT Hospital Encounter OR [facility], Operating Room, [facility] - 4th Floor 400 [facility] [place] [address] Jana Vieira, DO [address] [facility] [place] [address] 05/21/2024 1:14 PM EDT - 05/21/2024 1:59 PM EDT Surgery OR [facility], Operating Room, [facility] - 4th Floor 400 [facility] [place] [address] Jana Vieira, DO [address] [place] [address] COLONOSCOPY FLEXIBLE PROXIMAL DIAGNOSTIC 06/03/2024 2:15 PM EDT Office Visit Ophthalmology, [facility] 132 [facility] [place] [address] Wilbur Benavides, DO [address] [place] [address] 07/01/2024 2:30 PM EST Office Visit Gastroenterology, [facility] 132 [facility] [place] [address] Lacy Ronquillo CRNP [address] [place] [address] 08/09/2024 1:00 PM EST Nurse Only Ancillary 65 [facility] 293 [facility], [place] [address] College, Nurse Annual Wellness Visit [address] [facility] [address] [facility] [place] [address] Scheduled Procedures Name Priority Associated Diagnoses Date/Ti [...] COPD 07/31/2024 07/31/2023 CKD PHOS USE SMARTSET 65437 08/19/202407/26, 05/01/2022, 04/03/2022, Additional history exists Diabetic Foot Exam 09/15/2024 09/15/2023, 0 10/01/2022, 10/26/2021, Additional history exists GFR 09/15/2024 03/15/2024, 07/0 04/2024, 02/24/2024, Additional history exists Depression Monitoring 09/29/2024 09/29/2023 Albumin/Creatinine Ratio 12/08/20242 024, 02/21/2023, 05/01/2022, Additional history exists CKD HGB USE SMARTSET 63038 03/15/202503/15, 03/15/2024, 03/02/2024, Additional history exists TSH [...] encounter Medical Devices Implanted Type Area Business Intelligence Developer Device Identifier Shelf Expiration Date Model / Serial / Lot Cath Thermodilution 6fr - [id number] Implanted:Qty: 1 on 01/24/2023 by Wilbur Rivera MD at [facility] [place] [employer] T[place] [id number] 10/15/2024 [id number] / / [id number] Clip Delivery Sytem G4 Xt - [id number] Implanted:Qty: 1 on 03/10/2023 at [facility] [employer] [id number] 04/15/2023 [id number] T / / [id number] Clip Delivery Sytem G4 Xtw - [id number] Implanted:Qty: 1 on 03/10/2023 at [facility] [employer] [id number] 12/06/2023 [id number] TW / / [id number] Mirtaclip G4 - [id number] Implanted:Qty: 1 on 03/10/2023 at [facility] [employer] 11/19/2023 [id number] / / [id number] Device Watchman Flx 31mm - [id number] Implanted:Qty: 1 on 07/31/2023 by Wilbur Rivera MD at [facility] [employer] : INTRV CARD [id number] 12/02/2025 [id number] / / [id number] documented as of this encounter Advance Directives Documents on File Type Date Recorded Patient Life Skills Coordinator Volunteer Expl anation Advance Directives and Living Will 11/29/2022 ADVANCE DIRECTIVE / LIVING WILL Power of Shoe Laster 11/29/2022 POWER OF A TTORNEY Advance Directives and Living Will 10/24/2014 ADVANCE DIRECTIVE / LIVING WILL Power of Shoe Laster 10/24/2014 POWER OF A TTORNEY * Full [...] the patient have Health Care Power of Shoe Laster? No * No Code Date Activated Date [...] Agen t (per Health Care Power of Shoe Laster document) Care Teams Foreman/Pile Driving And Erection Relationship Specialty Start Date End Date Florentin Calvo DO 293 [place] [address] PCP - General Internal Medicine 02/06/24 documented as of this encounter
--- OUTSIDE RECORDS SUMMARY | 2024-04-13 02:14 | External Medical Summary | Summary of Care ---
Author Name Unknown Organization [facility] Address [address] [place] [address] Phone [phone] Care Team Providers Care Primary Care Nurse Name Role Phone Florentin Calvo DO Primary Care Provider [phone] Reason for Visit * Reason Onset Date Comments Information 03/22/2024 Encounter Details Date Type Department Care Team (Late st Contact Info) Description 03/22/2024 Telephone [facility], [facility] [address] [place] [address] Services, Scheduling [address] [place] [address] Information Allergies Active Allergy Reactions Criticality Noted [...] Dispensed Refills Start Date End Date Status Storactiveio w/Device KitIndications:Type 2 diabetes mellitus with hemoglobin [...] 100 Tablet 3 03/31/2023 Active Ipratropium [place] 0.03 % Nasal Solution (Atrovent)Indication s:Chronic rhinitis Administer 2 Sprays into nostril in the morning and 2 Sprays before bedtime. 90 mL 3 04/01/2023 Active Allopurinol 300 MG Oral Tablet (Zyloprim) Take 1 Tablet by mouth at bedtime. 90 Tablet 3 05/16/2023 Active Tiotropium [place]-Olodaterol 2.5-2.5 MCG/ACT Inhalation Aerosol Solution (Stiolto Respimat) [...] ression fracture of T12 vertebra, [facility] encounter [facility] [...] Plan: Increased oxy from 2.5mg to 5mg [id number] prn Ortho spine ref, ?kyphoplasty Constipation 03/12/2024 [...] mitral valve clip implantation 03/06/[address] 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 No-NENANA can hear w/ hearing aid 03/07/2023 Are [...] Telephone Encounter - Angle See OSA - 03/22/2024 11:47 AM EDT Rcvd call from pts daughter Kathy she advised her brother told her the hospital bed is suppose to be on its way... Called TH s/w Rep she advised they are still looking for a suppler and once they have one they will contact pt. documented in this encounter Plan of Treatment Upcoming Encounters Date Type Department Care Team (Late st Contact Info) Description 03/24/2024 10:00 AM EDT Scheduled Telephone [facility] at [facility] 132 [facility] [place] [address] Coordinator, [facility] 132 [facility] [place] [address] 03/25/2024 8:30 AM EDT Office Visit Hematology/Oncolog y Jerri [facility] [place] 200 [facility] [place] [address] Nereyda Metz CRNP [address] [place] [address] 03/30/2024 11:20 AM EDT Office Visit Family Practice 65 [facility] 293 [place] [phone] Florentin Calvo, DO 293 [place] [address] 04/01/2024 11:00 AM EDT [facility], [facility] [address] [place] [address] Michelle Hurt, RN [address] [place] [address] 04/05/2024 11:00 AM EDT Imaging Vascular Lab, [facility] 2nd [facility] 132 [facility] [place] [address] 04/14/2024 10:50 AM EDT Office Visit Vascular Surgery, [facility] 132 [facility] [place] [address] Aj Sahni MD [address] [place] [address] 04/20/2024 3:40 PM EDT Office Visit Family [address] 293 [facility] [place] [address] Florentin Calvo, DO 293 [place] [address] 05/21/2024 1:14 PM EDT Hospital Encounter OR [facility], Operating Room, [facility] - 4th Floor [address] [place] [address] Jana Vieira, DO [address] [place] [address] 05/21/2024 1:14 PM EDT - 05/21/2024 1:59 PM EDT Surgery OR [facility], Operating Room, [facility] - 4th Floor [address] [place] [address] Jana Vieira, DO [address] [place] [address] COLONOSCOPY FLEXIBLE PROXIMAL DIAGNOSTIC 06/03/2024 2:15 PM EDT Office Visit Ophthalmology, [facility] 132 [facility] [place] [address] Wilbur Benavides, DO [address] [facility] [place] [address] 07/01/2024 2:30 PM EST Office Visit Gastroenterology, [facility] 132 [facility] [place] [address] Lacy Ronquillo CRNP 132 [facility] [place] [address] 08/09/2024 1:00 PM EST Nurse Only Ancillary 65 [facility] 293 [place] [address] College, Nurse Annual Wellness Visit [address] [address] Scheduled Procedures Name Priority Associated Diagnoses Date/Ti [...] COPD 07/31/2024 07/31/2023 CKD PHOS USE SMARTSET 76455 08/19/202407/26, 05/01/2022, 04/03/2022, Additional history exists Diabetic Foot Exam 09/15/2024 09/15/2023, 0 10/01/2022, 10/26/2021, Additional history exists GFR 09/15/2024 03/15/2024, 07/0 04/2024, 02/24/2024, Additional history exists Depression Monitoring 09/29/2024 09/29/2023 Albumin/Creatinine Ratio 12/08/2024 024, 02/21/2023, 05/01/2022, Additional history exists CKD HGB USE SMARTSET 25669 03/15/202503/15, 03/15/2024, 03/02/2024, Additional history exists TSH [...] this encounter Medical Devices Implanted Type Area Saw Handle Assembler Device Identifier Shelf Expiration Date Model / Serial / Lot Cath Thermodilution 6fr - [id number] Implanted:Qty: 1 on 01/24/2023 by Wilbur Rivera MD at [facility] [employer] TERE [id number] 10/15/2024 [id number] / / [id number] Clip Delivery Sytem G4 Xt - [id number] Implanted:Qty: 1 on 03/10/2023 at [facility] [employer] [id number] 04/15/2023 [id number] T / / [id number] Clip Delivery Sytem G4 Xtw - [id number] Implanted:Qty: 1 on 03/10/2023 at [facility] [employer] [id number] 12/06/2023 [id number] TW / / [id number] Mirtaclip G4 - [id number] Implanted:Qty: 1 on 03/10/2023 at [facility] [employer] 11/19/2023 [id number] / / [id number] Device Watchman Flx 31mm - [id number] Implanted:Qty: 1 on 07/31/2023 by Wilbur Rivera MD at [facility] [employer] : INTRV CARD [id number] 12/02/2025 [id number] / / [id number] documented as of this encounter Advance Directives Documents on File Type Date Recorded Patient Supervisor Machining Expl anation Advance Directives and Living Will 11/29/2022 ADVANCE DIRECTIVE / LIVING WILL Power of Special Systems Technician 11/29/2022 POWER OF A TTORNEY Advance Directives and Living Will 10/24/2014 ADVANCE DIRECTIVE / LIVING WILL Power of Special Systems Technician 10/24/2014 POWER OF A TTORNEY * [...] the patient have Health Care Power of Special Systems Technician? No * No Code Date Activated [...] Question Answer Comments Discussion of Advance Direct eljiah occurred with: Not Discussed due to patient's condition * Full Code Date Activated Date Inactivated Comments 02/22/2020 8:58 AM 02/22/2020 4:47 PM This order r eflects the patients wishes and were consensually agreed upon. Healthcare Agents on File Name Relationship Healthcare Agent [facility] Communication Bright Barakat Adult Child Health Care Agen t (per Health Care Power of Special Systems Technician document) Care Teams Primary Care Nurse Relationship Specialty Start Date End Date Florentin Calvo DO 293 [place] [address] PCP - General Internal Medicine 02/06/24 documented as of this encounter
--- OUTSIDE RECORDS SUMMARY | 2024-04-13 02:14 | External Medical Summary | Summary of Care ---
Author Name Unknown Organization [facility] Address [address] [place] [address] Phone [phone] Care Team Providers Care Vocational Evaluator Name Role Phone Florentin Calvo DO Primary Care Provider [phone] Reason for Visit * Reason Onset Date Comments Information 03/24/2024 Encounter Details Date Type Department Care Team (Late st Contact Info) Description 03/24/2024 10:00 AM EDT Scheduled Telephone [facility], [facility] 132 [facility] [place] [address] Coordinator, [facility] 132 [facility] [place] [address] Allergies Active Allergy Reactions Criticality Noted Date [...] as of this encounter (statuses as of 03/24/2024) Medications Medication Sig Dispensed Refills Start Date End Date Status [place] w/Device KitIndications:Type 2 diabetes mellitus with hemoglobin [...] Wheezing. 15 g 12 06/13/2022 Active OneTouch [employer] In Vitro Strip (Glucose Blood) Test blood sugars up to 2 times a day E11.9 200 Strip 3 12/20/2022 Active Atorvastatin Calcium 20 MG Oral Tablet (Lipitor)Indications :PVD (peripheral vascular disease) ([facility]),Type 2 diabetes mellitus with stage 3a chronic kidney disease and hypertension ([facility]) TAKE ONE TABLET BY MOUTH EVERY DAY DIRECTED 100 Tablet 3 03/31/2023 Active Ipratropium [place] 0.03 % Nasal Solution (Atrovent)Indication s:Chronic rhinitis Administer 2 Sprays into nostril in the morning and 2 Sprays before bedtime. 90 mL 3 04/01/2023 Active Allopurinol 300 MG Oral Tablet (Zyloprim) Take 1 Tablet by mouth at bedtime. 90 Tablet 3 05/16/2023 Active Tiotropium [place]-Olodaterol 2.5-2.5 MCG/ACT Inhalation Aerosol Solution (Stiolto Respimat) Inhale 2 Puffs by mouth in the morning. 12 g 3 05/23/2023 Active Folic Acid 1 MG Oral TabletIndications:Ch ronic atrial fibrillation ([facility]) [...] 24 Hour (toPROL XL)Indications:Parox ysmal atrial fibrillation ([facility]) Take 1 Tablet by [...] (Demadex)Indications :Chronic diastolic CHF (congestive heart failure) ([facility]) Take 2 Tablets by [...] ression fracture of T12 vertebra, initial encounter ([facility]) Place 1 Patch over [...] as of this encounter (statuses as of 03/24/2024) Active Problems Problem Noted Date Diagnosed Date Compression fracture of T12 vertebra 03/12/2024 Last Assessment & Plan: Increased oxy from 2.5mg to 5mg [id number] prn Ortho spine ref, ?kyphoplasty Constipation 03/12/2024 [...] valve clip implantation 03/06/2023 Atherosclerosis of [place] 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 (Household - for ages [...] or do you have serious difficulty hearing? No-[place] can hear w/ hearing aid 03/07/2023 Are [...] Telephone Encounter - Felicitas Starks OSA - 03/24/2024 10:55 AM EDT DME order Referral [id number] Sent a message on [employer] asking for an update. Scheduled a follow up call for March 26. documented in this encounter Plan of Treatment Upcoming Encounters Date Type Department Care Team (Late st Contact Info) Description 03/26/2024 9:00 AM EDT Scheduled Telephone [facility] [address] [place] [address] Coordinator, [facility] [address] [place] [address] 03/30/2024 11:20 AM EDT Office Visit Family Practice [address], [place] 293 [facility], [place] [address] Florentin Calvo, DO 293 [facility], [place] [address] 04/05/2024 11:00 AM EDT Imaging Vascular Lab, [facility] 2nd [facility], [place] [address] [place] [address] 04/12/2024 8:00 AM EDT Office Visit Hematology/Oncolog y [facility] [address] [place] [id number] Nereyda Metz CRNP 400 [facility] [place] [address] 04/14/2024 10:50 AM EDT Office Visit Vascular Surgery, [facility] [address] [facility] [place] [address] Aj Sahni MD [address] [place] [address] 04/20/2024 3:40 PM EDT Office Visit Family Practice 65 [facility] 293 [facility] [place] [address] Florentin Calvo, DO 293 [place] [address] 05/21/2024 1:14 PM EDT Hospital Encounter OR [facility], Operating Room, [facility] - 4th Floor 400 [facility] [place] [address] Jana Vieira, DO [facility] [place] [address] 05/21/2024 1:14 PM EDT - 05/21/2024 1:59 PM EDT Surgery OR [facility], Operating Room, [facility] - 4th Floor 400 [facility] [place] [address] Jana Vieira, DO [address] [place] [address] COLONOSCOPY FLEXIBLE PROXIMAL DIAGNOSTIC 06/03/2024 2:15 PM EDT Office Visit Ophthalmology, [facility] [address] [place] [address] Wilbur Benavides, DO [facility] [place] [address] 07/01/2024 2:30 PM EST Office Visit Gastroenterology, [facility] 132 [facility] [place] [address] Lacy Ronquillo CRNP 132 [facility] [place] [address] 08/09/2024 1:00 PM EST Nurse Only Ancillary 65 [facility], [place] 293 [facility] [place] [address] College, Nurse Annual Wellness Visit [address] [facility] 293 [facility], [place] [address] Scheduled Procedures Name Priority Associated Diagnoses Date/Ti [...] 05/22/2023, Additional history exists HbA1c 06/08/2024 12/08/2023, 1209/2022, 02/21/2023, Additional history exists O2 ASSESSMENT COMPLETED IN PAST YEAR FOR COPD 07/31/2024 07/31/2023 CKD PHOS USE SMARTSET 20139 08/19/2024 122 01/2023, 05/01/2022, 04/03/2022, Additional history exists Diabetic Foot Exam 09/15/2024 09/15/2023, 0 10/01/2022, 10/26/2021, Additional history exists GFR 09/15/2024 03/15/2024, 07/0 04/2024, 02/24/2024, Additional history exists Depression Monitoring 09/29/2024 09/29/2023 Albumin/Creatinine Ratio 12/08/2024 024, 02/21/2023, 05/01/2022, Additional history exists CKD HGB USE SMARTSET 47638 03/15/202503/15, 03/15/2024, 03/02/2024, Additional history exists TSH [...] this encounter Medical Devices Implanted Type Area Editor Farm Journal Device Identifier Shelf Expiration Date Model / Serial / Lot Cath Thermodilution 6fr - [id number] Implanted:Qty: 1 on 01/24/2023 by Wilbur Rivera MD at [facility] [employer] [id number] 10/15/2024 [id number] / / [id number] Clip Delivery Sytem G4 Xt - [id number] Implanted:Qty: 1 on 03/10/2023 at [facility] [employer] [id number] 04/15/2023 [id number] T / / [id number] Clip Delivery Sytem G4 Xtw - [id number] Implanted:Qty: 1 on 03/10/2023 at [facility] [employer] [id number] 12/06/2023 [id number] TW / / [id number] Mirtaclip G4 - [id number] Implanted:Qty: 1 on 03/10/2023 at [facility] [employer] 11/19/2023 [id number] / / [id number] Device Watchman Flx 31mm - [id number] Implanted:Qty: 1 on 07/31/2023 by Wilbur Rivera MD at [facility] [employer] : INTRV CARD [id number] 12/02/2025 [id number] / / [id number] documented as of this encounter Advance Directives Documents on File Type Date Recorded Patient Production Foreman Expl anation Advance Directives and Living Will 11/29/2022 ADVANCE DIRECTIVE / LIVING WILL Power of Hospice Coordinator 11/29/2022 POWER OF A TTORNEY Advance Directives and Living Will 10/24/2014 ADVANCE DIRECTIVE / LIVING WILL Power of Hospice Coordinator 10/24/2014 POWER OF A TTORNEY * Full [...] the patient have Health Care Power of Hospice Coordinator? No * No Code Date Activated Date [...] File Name Relationship Healthcare Agent [facility] p Communication Bright [place] Adult Child Health Care Frieda t (per Health Care Power of Hospice Coordinator document) Care Teams Vocational Evaluator Relationship Specialty Start Date End Date Florentin Calvo DO [address] [place] [address] PCP - General Internal Medicine 02/06/24 documented as of this encounter
--- OUTSIDE RECORDS SUMMARY | 2024-04-13 02:15 | External Medical Summary | Summary of Care ---
Author Name Unknown Organization [facility] Address [address] [place] [address] Phone [phone] Care Team Providers Care Senior Sql Developer Name Role Phone Florentin Calvo DO Primary Care Provider [phone] Reason for Visit * Reason Onset Date Comments FYI 03/19/2024 ED Encounter Details Date Type Department Care Team (Late st Contact Info) Description 03/19/2024 Telephone Family Practice 65 [facility] [address] [place] [address] Florentin Calvo DO [address] [place] [address] FYI (ED) Allergies Active Allergy Reactions Criticality Noted Date [...] as of this encounter (statuses as of 03/21/2024) Medications Medication Sig Dispensed Refills Start Date End Date Status [employer] w/Device KitIndications:Type 2 diabetes mellitus with hemoglobin [...] Wheezing. 15 g 12 06/13/2022 Active OneTouch VerKaboo[employer] In Vitro Strip (Glucose Blood) Test blood sugars up to 2 times a day E11.9 200 Strip 3 12/20/2022 Active Atorvastatin Calcium 20 MG Oral Tablet (Lipitor)Indications :PVD (peripheral vascular disease) ([facility]),Type 2 diabetes mellitus with stage 3a chronic kidney disease and hypertension ([facility]) TAKE ONE TABLET BY MOUTH EVERY DAY DIRECTED 100 Tablet 3 03/31/2023 Active Ipratropium [place] 0.03 % Nasal Solution (Atrovent)Indication s:Chronic rhinitis Administer 2 Sprays into nostril in the morning and 2 Sprays before bedtime. 90 mL 3 04/01/2023 Active Allopurinol 300 MG Oral Tablet (Zyloprim) Take 1 Tablet by mouth at bedtime. 90 Tablet 3 05/16/2023 Active Tiotropium [employer]-Olodaterol 2.5-2.5 MCG/ACT Inhalation Aerosol Solution (Stiolto Respimat) [...] Tablet (Eliquis)Indications :Paroxysmal atrial fibrillation ([facility]) [...] as of this encounter (statuses as of 03/21/2024) Active Problems Problem Noted Date Diagnosed Date Compression fracture of T12 vertebra 03/12/2024 Last Assessment & Plan: Increased oxy from 2.5mg to 5mg o1ayjce prn Ortho spine ref, ?kyphoplasty Constipation 03/12/2024 [...] valve clip implantation 03/06/2023 Atherosclerosis of [place] 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 02/13/2023 [...] Obstructive sleep apnea of adult 09/09/2014 Overview: 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 No-[place] can hear w/ hearing aid 03/07/2023 Are [...] Telephone Encounter - Hilda Awad LPN - 03/19/2024 2:16 PM EDT Pain left breast area, side. Achy, fatigued, nausea. Is sleeping right now in chair. Did call [facility], they will review information for short term admission. Faxed information to [facility]. Thank you * Telephone Encounter - Hilda Awad LPN - 03/19/2024 12:07 PM EDT Called to check status of patient, has had a bm today. BM was pasty. Pain rate now at 5 range 0-10. If she moves pain goes up, when sitting pain is at 5. Laying down pain is at 8-9. Asked family if they would consider placement for rehab. Daughter said yes at [facility]. * Telephone Encounter - Hilda Awad LPN - 03/19/2024 8:57 AM EDT Currently patient is out of bed, in bathroom currently brushing her teeth. Pain has gone from 8-9 to a 5 now. Stomach area feels "empty". * Telephone Encounter - Hilda Awad LPN - 03/19/2024 8:31 AM EDT Called and spoke to Kathy, Kathy states that the patient is in pain. States pain is at about a 10. Patient can not get out of bed. Is using the duragesic, advised to give 1/2 of oxycodone now for increased pain. States that pain is in entire abd area. States last bm was last pm, at 9 PM. States not normal, liquid stool. Kathy questions if ct scan is needed? Denies N/V, denies problems breathing. Denies chest pain. * Telephone Encounter - Grace Jeffries OSA - 03/19/2024 8:16 AM EDT Daughter Kathy Waldrop called in they wanted to let us know that they were taking her mom to hospital documented in this encounter Plan of Treatment Upcoming Encounters Date Type Department Care Team (Late st Contact Info) Description 03/24/2024 10:00 AM EDT Scheduled Telephone [facility] at [facility] 132 [facility] [place] [address] Coordinator, [facility] 132 [facility] [place] [address] 03/25/2024 8:30 AM EDT Office [facility] 200 [facility] [place] [address] Nereyda Metz CRNP [address] [place] [address] 03/30/2024 11:20 AM EDT Office Visit Family Practice 65 [facility] 293 [facility], [place] [address] Florentin Calvo, DO 293 [place] [address] 04/01/2024 11:00 AM EDT Home Visit [facility] at [facility], [facility] 132 [facility] [place] [address] Michelle Hurt RN [address] [place] [address] 04/05/2024 11:00 AM EDT Imaging Vascular Lab, [facility] 2nd [facility] 132 [facility] [place] [address] 04/14/2024 10:50 AM EDT Office Visit Vascular Surgery, [facility] 132 [facility] [place] [address] Aj Sahni MD [address] [place] [address] 04/20/2024 3:40 PM EDT Office Visit Family Practice [address] [place] [address] 293 [facility] [place] [address] Florentin Calvo, DO 293 [facility], [place] [address] 05/21/2024 1:14 PM EDT Hospital Encounter OR [facility], Operating Room, [facility] - 4th Floor [address] [place] [address] Jana Vieira, DO [address] [place] [address] 05/21/2024 1:14 PM EDT - 05/21/2024 1:59 PM EDT Surgery OR [facility], Operating Room, [facility] - 4th Floor [address] [place] [address] Jana Vieira, DO [address] [place] [address] COLONOSCOPY FLEXIBLE PROXIMAL DIAGNOSTIC 06/03/2024 2:15 PM EDT Office Visit Ophthalmology, [facility] [place] [address] Wilbur Benavides, DO [address] [place] [address] 07/01/2024 2:30 PM EST Office Visit Gastroenterology, [facility] [place] [address] Lacy Ronquillo CRNP [address] [place] [address] 08/09/2024 1:00 PM EST Nurse Only Ancillary 65 [facility] 293 [facility] [place] [address] College, Nurse Annual Wellness Visit [address], [place] [address] Scheduled Procedures Name Priority Associated Diagnoses Date/Ti [...] COPD 07/31/2024 07/31/2023 CKD PHOS USE SMARTSET 00104 08/19/202407/26, 05/01/2022, 04/03/2022, Additional history exists Diabetic Foot Exam 09/15/2024 09/15/2023, 0 10/01/2022, 10/26/2021, Additional history exists GFR 09/15/2024 03/15/2024, 07/0 04/2024, 02/24/2024, Additional history exists Depression Monitoring 09/29/2024 09/29/2023 Albumin/Creatinine Ratio 12/08/2024 024, 02/21/2023, 05/01/2022, Additional history exists CKD HGB USE SMARTSET 65477 03/15/202503/15, 03/15/2024, 03/02/2024, Additional history exists TSH [...] this encounter Medical Devices Implanted Type Area Policy Manager Device Identifier Shelf Expiration Date Model / Serial / Lot Cath Thermodilution 6fr - [id number] Implanted:Qty: 1 on 01/24/2023 by Wilbur Rivera MD at [facility] [employer] [id number] 10/15/2024 [id number] / / [id number] Clip Delivery Sytem G4 Xt - [id number] Implanted:Qty: 1 on 03/10/2023 at [facility] [employer] [id number] 04/15/2023 [id number] T / / [id number] Clip Delivery Sytem G4 Xtw - [id number] Implanted:Qty: 1 on 03/10/2023 at [facility] [employer] [id number] 12/06/2023 [id number] TW / / [id number] Mirtaclip G4 - [id number] Implanted:Qty: 1 on 03/10/2023 at [facility] [employer] 11/19/2023 [id number] / / [id number] Device Watchman Flx 31mm - [id number] Implanted:Qty: 1 on 07/31/2023 by Wilbur Rivera MD at [facility] [employer] : INTRV CARD [id number] 12/02/2025 [id number] 10 / / [id number] documented as of this encounter Advance Directives Documents on File Type Date Recorded Patient Type Proof Reproducer Expl anation Advance Directives and Living Will 11/29/2022 ADVANCE DIRECTIVE / LIVING WILL Power of Master Certified Rv Technician 11/29/2022 POWER OF A TTORNEY Advance Directives and Living Will 10/24/2014 ADVANCE DIRECTIVE / LIVING WILL Power of Master Certified Rv Technician 10/24/2014 POWER OF A TTORNEY * [...] patient have Health Care Power of Master Certified Rv Technician? No * No Code Date Activated [...] t (per Health Care Power of Master Certified Rv Technician document) Care Teams Senior Sql Developer Relationship Specialty Start Date End Date Florentin Calvo DO [address] [place] [address] PCP - General Internal Medicine 02/06/24 documented as of this encounter
--- NOTE | 2024-04-13 04:25 | History & Physical Report ---
Date of Service April 13, 2024 Assessment & Plan (1) Generalized weakness: Plan: 83-year-old female with past medical history significant for type 2 diabetes, secondary hyperparathyroidism, diabetic retinopathy of right eye, CKD stage III, hypercholesterolemia, moderate persistent asthma, obstructive sleep apnea , nocturnal hypoxemia uses 2 L oxygen while sleeping, COPD, paroxysmal atrial fibrillation status post watchman left atrial appendage closure device,, pulmonary hypertension, peripheral vascular disease, chronic diastolic CHF, severe tricuspid regurgitation, angiodysplasia of colon with hemorrhage, aneurysm of left carotid artery, Mnire's disease, normocytic anemia, spinal stenosis, history of endometrial carcinoma, history of TIA, s/p mitral valve clip implantation, sick sinus syndrome status post pacemaker was recently in the hospital for thoracic compression fracture and on pain medications comes because of weakness and COVID. Patient states last 2 days she had poor appetite. Having chills and shakiness. Has sore throat and cough. She was diagnosed with COVID yesterday at home as patient having weakness and lethargy. And today she was feeling so weak and could not to go to bathroom that she has lowered herself to the ground. Because of the weakness family brought her to the hospital. Currently resting comfortably. Can tell her name. Knows that she is in the hospital. Can tell her date of . Could tell the year but could not tell the month. Has some headache. Denies dizziness. No blurred vision. No runny nose. Has some sore throat. Has cough. Poor appetite as per patient. Denies chest pain. Denies shortness of breath. Denies nausea. Denies abdominal pain. Normal bowel and bladder movements as per patient. Ambulates with a walker. Generalized weakness Mostly from COVID COVID precautions Supportive care Monitor vitals Gentle fluids PT OT when stable Recent T12 compression fracture Pain control Continue home pain medications Obstructive sleep apnea nocturnal hypoxemia On oxygen 2 L nightly Chronic diastolic CHF Severe tricuspid regurgitation On torsemide Monitor for volume overload Paroxysmal atrial fibrillation Status post watchman's device On metoprolol succinate and aspirin Sick sinus syndrome Status post pacemaker History of mitral regurgitation status post mitral valve clip COPD Pulmonary hypertension Continue home inhalers Endometrial cancer S/p surgery Hypothyroidism On Synthyroid CKD stage III Presented creatinine 1.5 Around baseline Will follow labs Chronic anemia Hemoglobin 10.5 Around baseline Will follow Mild elevation of troponin Mostly demand ischemia Initial troponin 28 and repeat is 29 Will follow repeat enzymes History of CAD On aspirin statin beta-caridad Hypertension On metoprolol, torsemide Will monitor History of gout On allopurinol Hyperlipidemia On statin GERD Protonix Depression On Zoloft DVT prophylaxis Heparin subcu Disposition Med/telemetry Full code History of Present Illness Chief Complaint: Weakness, COVID Primary Care Provider: Florentin Calvo DO 83-year-old female with past medical history significant for type 2 diabetes, secondary hyperparathyroidism, diabetic retinopathy of right eye, CKD stage III, hypercholesterolemia, moderate persistent asthma, obstructive sleep apnea , nocturnal hypoxemia uses 2 L oxygen while sleeping, COPD, paroxysmal atrial fibrillation status post watchman left atrial appendage closure device,, pulmonary hypertension, peripheral vascular disease, chronic diastolic CHF, severe tricuspid regurgitation, angiodysplasia of colon with hemorrhage, aneurysm of left carotid artery, Mnire's disease, normocytic anemia, spinal stenosis, history of endometrial carcinoma, history of TIA, s/p mitral valve clip implantation, sick sinus syndrome status post pacemaker was recently in the hospital for thoracic compression fracture and on pain medications comes because of weakness and COVID. Patient states last 2 days she had poor appetite. Having chills and shakiness. Has sore throat and cough. She was diagnosed with COVID yesterday at home as patient having weakness and lethargy. And today she was feeling so weak and could not to go to bathroom that she has lowered herself to the ground. Because of the weakness family brought her to the hospital. Currently resting comfortably. Can tell her name. Knows that she is in the hospital. Can tell her date of . Could tell the year but could not tell the month. Has some headache. Denies dizziness. No blurred vision. No runny nose. Has some sore throat. Has cough. Poor appetite as per patient. Denies chest pain. Denies shortness of breath. Denies nausea. Denies abdominal pain. Normal bowel and bladder movements as per patient. Ambulates with a walker. Past medical history. As mentioned above Past surgical history. Colonoscopy. Right and left heart catheterization. Cystoscopy , EGD. Robotic laparoscopic hysterectomy with removal of tubes and ovaries. Laparoscopic cholecystectomy. Ligation of oviducts. Neck spine fusion. Lumbar laminectomy. Percutaneous closure of left atrial appendage implant. Tonsillectomy. Left ruptured rotator cuff repair. Sinus surgery. Bilateral transcatheter repair of mitral valve. Social history. . Quit smoking 1978. Smoked 1.3 packs a day for 18 years. No alcohol use. No drug use. Family history. Brother had brain and lung cancer. Father had diabetes. Mother had glaucoma. Parkinson's. Maternal grandmother had stomach cancer. Allergies Allergy/AdvReac Type Severity Reaction Status Date / Time Sulfa (Sulfonamide Allergy Severe Severe Verified 04/13/24 00:16 Antibiotics) rxn: rash and hives celecoxib Allergy Intermediate Rash/Hives/ Verified 04/13/24 00:16 Itching. cephalexin Allergy Intermediate Rash/Hives/ Verified 04/13/24 00:16 Itching. furosemide Allergy Intermediate Rash/Hives/ Verified 04/13/24 00:16 Itching. gabapentin Allergy Intermediate Rash/Hives/ Verified 04/13/24 00:16 Itching. pregabalin Allergy Intermediate Rash/Hives/ Verified 04/13/24 00:16 Itching. meclizine Allergy Unknown Unknown Verified 04/13/24 00:16 methylprednisolone Allergy Unknown Rash/Hives/ Verified 04/13/24 00:16 Itching. Penicillins Allergy Unknown Unknown. Verified 04/13/24 00:16 prednisone Allergy Unknown Rash/Hives/ Verified 04/13/24 00:16 Itching. vancomycin Allergy Unknown Jodi Verified 04/13/24 00:16 syn. . nickel Allergy Unknown Verified 04/13/24 00:16 dexamethasone AdvReac Intermediate Steroid Verified 04/13/24 00:16 psychosis. Home Medications Medication Instructions Recorded Confirmed Type montelukast 10 mg tablet 10 mg PO PM 04/08/19 04/13/24 History atorvastatin 20 mg tablet 20 mg PO QAM 11/26/21 04/13/24 History cholecalciferol (vitamin D3) 50 100 mcg PO QAM 11/26/21 04/13/24 History mcg (2,000 unit) capsule (Vitamin D3) levalbuterol tartrate 45 1 puff inhalation Q4H PRN 08/07/22 04/13/24 History mcg/actuation aerosol inhaler Shortness Of Breath (Xopenex HFA) sertraline 100 mg tablet 150 mg PO QAM 08/07/22 04/13/24 History tiotropium 2.5 mcg-olodaterol 2.5 2 puff inhalation QAM 11/07/22 04/13/24 History mcg/actuation mist for inhalation (Stiolto Respimat) torsemide 10 mg tablet 20 mg PO QAM 11/07/22 04/13/24 History ipratropium bromide 21 mcg (0.03 2 spray intranasal DAILY PRN 12/06/22 04/13/24 History %) nasal spray rhinorrhea pantoprazole 40 mg tablet,delayed 40 mg PO BID #60 tabs 12/09/22 04/13/24 Rx release allopurinol 300 mg tablet 300 mg PO HS 08/14/23 04/13/24 History metoprolol succinate 25 mg 25 mg PO BID #60 tabs 10/22/23 04/13/24 Rx tablet,extended release 24 hr diphenoxylate-atropine 2.5 1 tab PO BID PRN Diarrhea 03/07/24 04/13/24 History mg-0.025 mg tablet lidocaine 5 % topical patch 1 patch topical DAILY PRN pain #15 03/07/24 04/13/24 Rx (Lidoderm) ea levothyroxine 175 mcg tablet 175 mcg PO DAILY 03/21/24 04/13/24 History fentanyl 12 mcg/hr transdermal 12 mcg transdermal Q3D 03/23/24 04/13/24 History patch aspirin 81 mg tablet,delayed 81 mg PO QAM #30 tabs 03/25/24 04/13/24 Rx release oxycodone 5 mg tablet 5 mg PO QID PRN pain severe #35 03/25/24 04/13/24 Rx tabs acetaminophen 500 mg tablet 1,000 mg PO Q6H PRN Pain 04/13/24 04/13/24 History (Tylenol Extra Strength) Past Med/Surg History Problem List (Updated 04/07/24 @ 00:07 by Background Chrissy) COVID-19 (Acute) Non-ST elevation AK (NSTEMI) (Acute) Generalized weakness (Acute) Thoracic compression fracture Diarrhea Elevated troponin (Acute) C. difficile diarrhea (Acute) Adult failure to thrive (Acute) Generalized weakness (Acute) S/P mitral valve clip implantation Presence of Watchman left atrial appendage closure device CAD (coronary artery disease) Cardiac pacemaker in situ (Acute) CKD (chronic kidney disease) (Acute) Anemia (Acute) TIA (transient ischemic attack) (Acute) Depression Hypothyroidism RADHA (obstructive sleep apnea) SSS (sick sinus syndrome) Chronic diastolic (congestive) heart failure CKD (chronic kidney disease), stage III TIA (transient ischemic attack) Anemia (Acute) Leukocytosis (Acute) Chronic anticoagulation (Acute) Acute renal insufficiency Severe mitral insufficiency Acute on chronic diastolic heart failure Paroxysmal atrial fibrillation Stroke-like symptoms (Acute) Acute on chronic anemia COVID-19 (Acute) COVID-19 (Acute) History of tobacco abuse Asthma, moderate persistent (Chronic) Meniere disease (Chronic) Atrial fibrillation and flutter (Chronic) History of laminectomy (Chronic) H/O sinus surgery (Chronic) Hx of neck surgery (Chronic) History of repair of left rotator cuff (Chronic) Medical History Angio-edema Nausea Leukocytosis Near syncope Hypotension Dehydration TIFFANY (acute kidney injury) Near syncope Elevated brain natriuretic peptide (BNP) level Pneumonia Atrial flutter Carotid artery aneurysm Prolonged QT interval Atrial fibrillation with RVR DM type 2 (diabetes mellitus, type 2) Encounter for pre-operative examination Cholelithiasis Cholecystitis Chest pain at rest Pulmonary emphysema Osteoarthritis of right knee HTN (hypertension) Surgical History History of hysterectomy History of cholecystectomy Family History Father Diabetes Social History Smoking Status: Never smoker Tobacco Type: Cigarettes packs per day: 1.5; Cigarettes Per Day: 30; Second Hand Exposure: No; Do You Dip or Chew Tobacco: No; Hx Alcohol Use: No Hx Substance Use: No Preferred Language: Icelandic Communication Ability: Effective Drawer Upfitter Required: No Beliefs That Will Affect Care: None marital status: Current Living Situation: Spouse Other Information That Helps Us Care for You: No Feels Safe at Home: Yes Safety Concerns: Feels Safe At This Time Assistive Devices: Glasses, Hearing Aid - Right, Oxygen - at Night and Walker Review of Systems Review of Systems: All systems reviewed & are unremarkable except as noted in HPI & below Physical Exam Physical Exam: General- Not in acute distress Head- atraumatic Eyes- PERRL. ENT- oropharynx clear Neck- supple, no JVD. Lungs- clear to auscultation no wheezing or crackles Heart- regular rhythm; no murmur, no gallop. Abdomen- normal bowel sounds, soft, nontender, no distension Extremities- no pretibial edema, no erythema seen Neuro- alert, oriented x 2; PERRL, ; no facial palsy; no dysarthria; moves extremities. Skin- warm & dry Results & Data Results & Data Vital Signs (Past 12 Hours) Vital Signs Temp Pulse Pulse Resp BP BP Pulse Ox 04/13/24 03:34 87 04/13/24 03:00 71 18 124/74 100 04/13/24 01:05 75 18 106/77 96 04/12/24 23:40 78 04/12/24 22:00 86 18 112/59 L 97 04/12/24 20:23 97 04/12/24 20:23 99 H 18 90/77 L 97 04/12/24 20:23 92 04/12/24 19:46 115 H 04/12/24 19:40 37.6 C H 120 H 20 117/70 98 O2 Del Method O2 Flow Rate 04/13/24 03:34 04/13/24 03:00 Nasal Cannula 2 04/13/24 01:05 Nasal Cannula 2 04/12/24 23:40 04/12/24 22:00 Nasal Cannula 2 04/12/24 20:23 Nasal Cannula 2 04/12/24 20:23 Nasal Cannula 2 04/12/24 20:23 Room Air 04/12/24 19:46 04/12/24 19:40 Room Air Diagnostic Findings Laboratory Results WBC 10.41 K/ul (4.8-10.8) 04/12/24 20:27 RBC 3.52 M/uL (4.20-5.40) L 04/12/24 20:27 Hgb 10.5 g/dl (12.0-16.0) L 04/12/24 20:27 Hct 32.9 % (37.0-47.0) L 04/12/24 20: MCV 93.5 fL (80.0-100.0) 04/12/24 20:27 MCH 29.8 pg (25.0-34.0) 04/12/24 20: MCHC 31.9 g/dL (32.0-36.0) L 04/12/24 20:27 RDW Std Deviation 57.3 fL (36.4-46.3) H 04/12/24 20: RDW Coeff of Francisco Javier 17.0 % (11.5-14.5) H 04/12/24 20: Plt Count 172 K/uL (130-400) 04/12/24 20: MPV 10.8 fL (9.4-12.4) 04/12/24 20: Immature Gran % (Auto) 0.5 % 04/12/24 20: Neut % (Auto) 80.6 % 04/12/24 20: Lymph % (Auto) 6.3 % 04/12/24 20: Imperial % (Auto) 11.0 % 04/12/24 20: Eos % (Auto) 1.3 % 04/12/24 20: Baso % (Auto) 0.3 % 04/12/24 20: Neut # (Auto) 8.38 K/uL (1.40-6.50) H 04/12/24 20: Lymph # (Auto) 0.66 K/uL (1.20-3.40) L 04/12/24 20: Imperial # (Auto) 1.15 K/uL (0.11-0.59) H 04/12/24 20: Eos # (Auto) 0.14 K/uL (0.00-0.50) 04/12/24 20: Baso # (Auto) 0.03 K/uL (0.00-0.20) 04/12/24 20: Immature Gran # (Auto) 0.05 K/uL (0.01-0.20) 04/12/24 20: Sodium 133 mmol/L (136-145) L 04/12/24 20: Potassium 4.2 mmol/L (3.5-5.1) 04/12/24 20: Chloride 97 mmol/L (98-107) L 04/12/24 20: Carbon Dioxide 26 mmol/L (21-32) 04/12/24 20: Anion Gap 10 (3-11) 04/12/24 20: BUN 40 mg/dl (6-23) H 04/12/24 20:27 Creatinine 1.53 mg/dl (0.6-1.2) H 04/12/24 20:27 Est Cr Clr Drug Dosing 28.5 ml/min 04/12/24 20:27 Est GFR ( Amer) 36.1 ml/min 04/12/24 20:27 Est GFR (Non-Af Amer) 31.1 ml/min 04/12/24 20:27 BUN/Creatinine Ratio 26.1 (10-20) H 04/12/24 20:27 Glucose 137 mg/dl (70-99(Fasting)) H 04/12/24 20:27 Calcium 9.3 mg/dl (8.6-10.3) 04/12/24 20:27 Magnesium 1.8 mg/dl (1.7-2.4) 04/12/24 20:27 Total Bilirubin 0.5 mg/dl (0.2-1.0) 04/12/24 20:27 AST 77 U/L (13-39) H 04/12/24 20:27 ALT 25 U/L (7-52) 04/12/24 20:27 Alkaline Phosphatase 184 U/L (34-104) H 04/12/24 20:27 Troponin I High Sens 29.7 pg/ml (0-14) H 04/12/24 22:04 Total Protein 6.7 gm/dl (6.0-8.3) 04/12/24 20:27 Albumin 3.9 gm/dl (3.4-5.0) 04/12/24 20:27 Globulin 2.8 gm/dl (2.5-4.0) 04/12/24 20:27 Albumin/Globulin Ratio 1.4 (0.9-2) 04/12/24 20:27 Lipase 27 U/L (11-82) 04/12/24 20:27 SARS-CoV-2, RNA, NAAT POSITIVE (NEGATIVE) A 04/13/24 01:13 ECG Additional Comments: EKG. A-fib with rapid ventricular sponsor rate of 114. Nonspecific ST And T wave abnormalities. Code Status & VTE Plan VTE Prophylaxis Plan VTE Prophylaxis will be ordered: Yes
[2024-04-13] MEDS ORDERED: NITROGLYCERIN SL 0.4 MG/TAB TAB SL PRN (05:12)
[2024-04-13] MEDS ORDERED: ACETAMINOPHEN 325 MG TAB PO PRN (05:12)
[2024-04-13] MEDS ORDERED: fentaNYL 12 MCG/HR TDSY TD SCH (05:12)
[2024-04-13] MEDS ORDERED: POLYETHYLENE (MIRALAX) 17 GM PACK PO PRN (05:12)
[2024-04-13] MEDS ORDERED: oxyCODONE HCL IR 5 MG TAB (IMMEDIATE RELEASE) PO PRN (05:12)
[2024-04-13] MEDS ORDERED: LEVALBUTEROL TARTRATE 15 GM HFA.AER.AD INH PRN (05:12)
[2024-04-13] MEDS ORDERED: LIDOCAINE 5% 1 PATCH TD PRN (05:12)
[2024-04-13] MEDS ORDERED: DIPHENOXYLATE/ATROPINE 2.5/0.025MG TAB PO PRN (05:12)
[2024-04-13] MEDS ORDERED: IPRATROPIUM BROMIDE NASAL SPRAY 0.06% 15ML NAE PRN (05:17)
[2024-04-13] MEDS: D5W AND 1/2NSS 1,000 ML IV SCH (06:08)
[2024-04-13] MEDS: LEVOTHYROXINE SODIUM 175 MCG TABLET PO SCH (06:15)
[2024-04-13] MEDS: HEPARIN SOD 5,000 UNIT/0.5 ML VIAL SQ SCH (06:15)
[2024-04-13] MEDS ORDERED: CHECK fentaNYL PATCH PLACEMENT SCH (08:00)
--- NOTE | 2024-04-13 08:03 | XRay Report ---
SINGLE VIEW CHEST CLINICAL HISTORY: Generalized weakness. FINDINGS: A PA chest radiograph is compared to study dated 03/23/2024 and correlated with chest CT adrian ed 01/13/2024. A 2-lead cardiac pacemaker is unchanged in position. The heart is enlarged noting ather osclerotic calcification of the thoracic. There is pulmonary vascular congestion. Emphysema and chron ic interstitial thickening is similar to previous. There is bibasilar scarring/atelectasis. No large pleural effusion or pneumothorax is seen. The skeletal structures are osteopenic. The bony thorax is grossly intact. Fusion hardware is noted in the lower cervical spine. Cholecystectomy clips are seen in the right upper quadrant. IMPRESSION: 1. Cardiomegaly and cardiac pacemaker with pulmonary vascular congestion. 2. Emphysema. 3. No airspace consolidation or large pleural effusion is identified. ACT 112: Negative or not required by law. Electronically signed by: Jay Sandoval M.D. 04/13/2024 8:02 AM
[2024-04-13] MEDS: REMDESIVIR 200 MG in SODIUM CHLORIDE 0.9% 210 ML IV STA (08:12)
[2024-04-13] MEDS: CHECK fentaNYL PATCH PLACEMENT SCH (08:13)
--- NOTE | 2024-04-13 08:34 | Electrocardiogram Report ---
Test Reason : Blood Pressure : */* mmHG Vent. Rate : 114 BPM Atrial Rate : * BPM P-R Int : * ms QRS Dur : 70 ms QT Int : 250 ms P-R-T Axes : * 53 263 degrees QTcB Int : 344 ms Poor data quality, interpretation may be adversely affected Atrial fibrillation with rapid ventricular response Diffuse Minor Nonspecific ST and T wave abnormality Abnormal ECG When compared with ECG of 21-Mar-2024 01:32, No significant change Confirmed by Nilay Russ ([id number]) on 04/13/2024 8:33:51 AM Referred By: Confirmed By: Nilay Russ
[2024-04-13 09:01] LABS: Basophils # (auto) 0.03 K/uL (0.00-0.20); Basophils % (auto) 0.4 %; Eosinophils # (auto) 0.15 K/uL (0.00-0.50); Eosinophils % (auto) 2.1 %; Hematocrit (blood only) 33.6 % (37.0-47.0); Hemoglobin 10.6 g/dl (12.0-16.0); Immature Granulocytes # (auto) 0.04 K/uL (0.01-0.20); Immature Granulocytes % (auto) 0.6 %; Lymphocytes # (auto) 0.99 K/uL (1.20-3.40); Lymphocytes % (auto) 14.1 %; Mean Corpuscular Hemoglobin 29.7 pg (25.0-34.0); Mean Corpuscular Hgb Conc 31.5 g/dL (32.0-36.0); Mean Corpuscular Volume 94.1 fL (80.0-100.0); Mean Platelet Volume 11.4 fL (9.4-12.4); Monocytes # (auto) 1.23 K/uL (0.11-0.59); Monocytes % (auto) 17.5 %; Neutrophils # (auto) 4.57 K/uL (1.40-6.50); Neutrophils % (auto) 65.3 %; Platelet Count 159 K/uL (130-400); RDW Coefficient of Variation 16.8 % (11.5-14.5); Red Blood Count 3.57 M/uL (4.20-5.40); White Blood Count 7.01 K/ul (4.8-10.8)
[2024-04-13 09:07] LABS: BUN Creatinine Ratio 25.4 (10-20); Calcium 8.8 mg/dl (8.6-10.3); Creatinine Clr Calc Pharmacy 30.6 ml/min; Est GFR (African American) 40.9 ml/min; Est GFR (Non-African American) 35.3 ml/min; Magnesium 1.8 mg/dl (1.7-2.4); Potassium 3.6 mmol/L (3.5-5.1)
[2024-04-13] MEDS: PANTOprazole 40 MG TAB PO SCH (09:36)
[2024-04-13] MEDS: ATORVASTATIN 20 MG TAB PO SCH (09:36)
[2024-04-13] MEDS: SERTRALINE HCL 50 MG TABLET PO SCH (09:36)
[2024-04-13] MEDS: TORSEMIDE 20 MG TAB PO SCH (09:36)
[2024-04-13] MEDS: ASPIRIN 81 MG ECTAB PO SCH (09:36)
[2024-04-13] MEDS: METOPROLOL SUCC 25MG EXT REL TAB PO SCH (09:36)
[2024-04-13] MEDS: CHOLECALCIFEROL 25 MCG (1000 UNITS) TAB PO SCH (09:36)
[2024-04-13] MEDS: UMECLIDINIUM/VILANTEROL 62.5/25MCG 7 PUFFS/INHALER INH SCH (09:37)
--- NOTE | 2024-04-13 10:47 | Hospitalist Progress Note ---
Date of Service April 13, 2024 Assessment & Plan (1) Acute bronchitis due to COVID-19 virus: (2) Chronic renal failure (CRF), stage 3b: (3) Acute on chronic diastolic heart failure: (4) Paroxysmal atrial fibrillation: (5) Pulmonary emphysema: (6) Nocturnal hypoxemia due to emphysema: (7) Presence of Watchman left atrial appendage closure device: Plan Patient presented with symptoms associated with acute COVID-19 bronchitis/upper respiratory infection. With patient's comorbidities she is at high risk for severe COVID disease. Patient needs hospital level monitoring and interventions. Start remdesivir for minimum of 3 days due to her high risk of severe disease Continue to monitor pulse ox, start Decadron if she has additional oxygen requirement Continue other outpatient medications as ordered Atrial fibrillation currently controlled on her current medications, Watchman device in place for secondary stroke prevention Antitussives and mucolytics While at the bedside patient called daughter on cell phone, she is updated via phone Patient does not look excessively volume overloaded, will give 1 extra dose of torsemide this afternoon. Follow laboratory studies for remdesivir treatment Admission and Anticipated Discharge Date Admission Date: April 13, 2024 Subjective Patient states she still has a bit of a sore throat, cough is a bit looser. Denies shortness of breath. Still feels weak and some malaise Physical Exam Physical Exam: Constitutional: Alert mildly ill in appearance HEENT: Mucous membranes moist. Lungs: Decreased breath sounds, prolonged expiratory phase, some coarse rhonchi CV: S1-S2, regular Abdomen: Soft, nontender, nondistended Extremities: No significant edema Neuro: No focal deficits Psych: Cooperative, normal mood Results & Data Results & Data Vital Signs (Past 12 Hours) Vital Signs Temp Pulse Pulse Pulse Resp BP Pulse Ox 04/13/24 07:48 36.7 C 77 18 121/71 93 04/13/24 05:17 04/13/24 05:17 36.4 C L 79 18 117/72 96 04/13/24 03:34 87 04/13/24 03:00 71 18 124/74 100 04/13/24 01:05 75 18 106/77 96 04/12/24 23:40 78 O2 Del Method O2 Flow Rate 04/13/24 07:48 Room Air 04/13/24 05:17 Room Air 04/13/24 05:17 Room Air 04/13/24 03:34 04/13/24 03:00 Nasal Cannula 2 04/13/24 01:05 Nasal Cannula 2 04/12/24 23:40 Diagnostic Findings Reviewed imaging, laboratory and diagnostic studies. Pertinent findings as bel ow. Hemoglobin 10.6 Troponins reviewed and flat, no evidence of acute coronary syndrome Creatinine 1.38 LFTs reviewed Personally reviewed chest x-ray imaging, pacemaker, possibly some mild venous congestion Personally reviewed EKG from admission, atrial fibrillation with RVR, rates currently controlled
[2024-04-13] MEDS ORDERED: COUGH DROP (SUGAR FREE) LOZ 24 LOZ/1 BOX BUCCAL PRN (10:48)
[2024-04-13] MEDS: TORSEMIDE 20 MG TAB PO ONE (16:15)
[2024-04-13] MEDS: allopurinoL 300 MG TAB PO SCH (20:47)
[2024-04-13] MEDS: MONTELUKAST SODIUM 10 MG TABLET PO SCH (20:47)
[2024-04-13] MEDS: guaiFENesin 600 MG TABCR PO SCH (20:47)
[2024-04-14 06:19] LABS: Hematocrit (blood only) 32.5 % (37.0-47.0); Hemoglobin 10.5 g/dl (12.0-16.0); Mean Corpuscular Hemoglobin 29.9 pg (25.0-34.0); Mean Corpuscular Hgb Conc 32.3 g/dL (32.0-36.0); Mean Corpuscular Volume 92.6 fL (80.0-100.0); Mean Platelet Volume 10.7 fL (9.4-12.4); Platelet Count 166 K/uL (130-400); RDW Coefficient of Variation 16.6 % (11.5-14.5); RDW Standard Deviation 55.9 fL (36.4-46.3); Red Blood Count 3.51 M/uL (4.20-5.40); White Blood Count 6.82 K/ul (4.8-10.8)
[2024-04-14 06:23] LABS: BUN Creatinine Ratio 26.7 (10-20); Calcium 8.9 mg/dl (8.6-10.3); Est GFR (Non-African American) 31.9 ml/min; Potassium 3.6 mmol/L (3.5-5.1)
[2024-04-14] MEDS: REMDESIVIR 100 MG in SODIUM CHLORIDE 0.9% 230 ML IV SCH (12:33)
--- NOTE | 2024-04-14 13:08 | Hospitalist Progress Note ---
Date of Service April 14, 2024 Assessment & Plan (1) Acute bronchitis due to COVID-19 virus: (2) Chronic renal failure (CRF), stage 3b: (3) Acute on chronic diastolic heart failure: (4) Paroxysmal atrial fibrillation: (5) Pulmonary emphysema: (6) Nocturnal hypoxemia due to emphysema: (7) Presence of Watchman left atrial appendage closure device: Plan Patient with acute symptomatic COVID. She remains on room air Continue IV remdesivir for treatment for high risk of severe disease Continue other medications as prescribed Phone conversation with son while in the room, anticipate discharge tomorrow after third dose of remdesivir if she remains off of oxygen. Continue antitussives and mucolytics as needed. [facility] Ad[facility] and Anticipated Discharge Date Admission Date: April 13, 2024 Subjective Patient feeling a bit better. Cough is manageable. Weakness is improving. Physical Exam Physical Exam: Constitutional: Alert, less fatigued in appearance HEENT: Mucous membranes moist. Lungs: Decreased, few rhonchi and wheezes CV: S1-S2, regular Abdomen: Soft, nontender, nondistended Extremities: No significant edema Neuro: No focal deficits Psych: Cooperative, normal mood Results & Data Results & Data Vital Signs (Past 12 Hours) Vital Signs Temp Pulse Pulse Resp BP Pulse Ox O2 Del Method 04/14/24 11:48 36.5 C 79 16 94/57 L 93 Room Air 04/14/24 08:00 79 04/14/24 08:00 Room Air 04/14/24 07:55 36.7 C 87 16 122/72 95 Room Air 04/14/24 03:18 36.4 C L 76 18 126/68 94 Room Air Diagnostic Findings Reviewed imaging, laboratory and diagnostic studies. Pertinent findings as below. Creatinine 1.5 Hemoglobin 10.5 AST, ALT stable
[2024-04-14 21:00] VITALS: RESP 18
[2024-04-15 07:46] LABS: Hematocrit (blood only) 32.5 % (37.0-47.0); Hemoglobin 10.4 g/dl (12.0-16.0); Mean Corpuscular Hemoglobin 29.5 pg (25.0-34.0); Mean Corpuscular Volume 92.3 fL (80.0-100.0); Mean Platelet Volume 11.5 fL (9.4-12.4); Platelet Count 176 K/uL (130-400); RDW Coefficient of Variation 16.6 % (11.5-14.5); RDW Standard Deviation 56.6 fL (36.4-46.3); Red Blood Count 3.52 M/uL (4.20-5.40); White Blood Count 7.81 K/ul (4.8-10.8)
[2024-04-15 08:22] LABS: Albumin Level 3.5 gm/dl (3.4-5.0); BUN Creatinine Ratio 29.2 (10-20); Bilirubin Direct 0.1 mg/dl (0-0.2); Bilirubin,Total 0.4 mg/dl (0.2-1.0); Calcium 8.7 mg/dl (8.6-10.3); Creatinine Clr Calc Pharmacy 30.3 ml/min; Est GFR (African American) 41.2 ml/min; Est GFR (Non-African American) 35.6 ml/min; Potassium 3.7 mmol/L (3.5-5.1); Total Protein 6.4 gm/dl (6.0-8.3)
--- NOTE | 2024-04-15 09:56 | Discharge Summary ---
Discharge Summary Date of Service April 15, 2024 Principal Dx & Hospital Course #1 = Principal Diagnosis (1) Acute bronchitis due to COVID-19 virus: (2) Chronic renal failure (CRF), stage 3b: (3) Acute on chronic diastolic heart failure: (4) Paroxysmal atrial fibrillation: (5) Pulmonary emphysema: (6) Nocturnal hypoxemia due to emphysema: (7) Presence of Watchman left atrial appendage closure device: Plan Patient presented with increasing shortness of breath cough and fatigue. She tested positive for COVID-19. Patient was admitted to the hospital. Due to her high risk for severe disease she was started on remdesivir. She never required supplemental oxygen beyond her baseline and therefore did not meet criteria for steroid treatment. Through the course of her hospitalization her symptoms improved. Her fatigue and weakness improved. Her shortness of breath resolved. She maintaining adequate O2 sat on room air. Other medical conditions are stable. She did receive 1 dose of additional diuretic based on some congestion seen on chest x-ray. The night prior to her discharge she did have a fall while walking to the bathroom. Patient was closely monitored with neurochecks did not appear to be any significant injury and the morning of discharge she was stating she was feeling much better even than the day before. She completed a 3-day course of remdesivir here in the hospital for prophylaxis against severe disease. She is steadily improved. She can be discharged home to continue to recuperate home and follow-up with her outpatient providers. Son updated to the plan of care and plan for discharge at the bedside via phone when visiting with the patient. Reports that they have caregivers and family to assist with patient's care at home. Notes For Next Care Provider Continue her usual care Medication Changes From Visit Sury added for congestion and cough Admission HPI Per Admitting Provider 83-year-old female with past medical history significant for type 2 diabetes, secondary hyperparathyroidism, diabetic retinopathy of right eye, CKD stage III, hypercholesterolemia, moderate persistent asthma, obstructive sleep apnea , nocturnal hypoxemia uses 2 L oxygen while sleeping, COPD, paroxysmal atrial fibrillation status post watchman left atrial appendage closure device,, pulmonary hypertension, peripheral vascular disease, chronic diastolic CHF, severe tricuspid regurgitation, angiodysplasia of colon with hemorrhage, aneurysm of left carotid artery, Mnire's disease, normocytic anemia, spinal stenosis, history of endometrial carcinoma, history of TIA, s/p mitral valve clip implantation, sick sinus syndrome status post pacemaker was recently in the hospital for thoracic compression fracture and on pain medications comes because of weakness and COVID. Patient states last 2 days she had poor appetite. Having chills and shakiness. Has sore throat and cough. She was diagnosed with COVID yesterday at home as patient having weakness and lethargy. And today she was feeling so weak and could not to go to bathroom that she has lowered herself to the ground. Because of the weakness family brought her to the hospital. Currently resting comfortably. Can tell her name. Knows that she is in the hospital. Can tell her date of . Could tell the year but could not tell the month. Has some headache. Denies dizziness. No blurred vision. No runny nose. Has some sore throat. Has cough. Poor appetite as per patient. Denies chest pain. Denies shortness of breath. Denies nausea. Denies abdominal pain. Normal bowel and bladder movements as per patient. Ambulates with a walker. Past medical history. As mentioned above Past surgical history. Colonoscopy. Right and left heart catheterization. Cystoscopy , EGD. Robotic laparoscopic hysterectomy with removal of tubes and ovaries. Laparoscopic cholecystectomy. Ligation of oviducts. Neck spine fusion. Lumbar laminectomy. Percutaneous closure of left atrial appendage implant. Tonsillectomy. Left ruptured rotator cuff repair. Sinus surgery. Bilateral transcatheter repair of mitral valve. Social history. . Quit smoking 1978. Smoked 1.3 packs a day for 18 years. No alcohol use. No drug use. Family history. Brother had brain and lung cancer. Father had diabetes. Mother had glaucoma. Parkinson's. Maternal grandmother had stomach cancer. Admission Exam Per Admitting Provider See H&P Discharge Exam Constitutional: Alert HEENT: Mucous membranes moist. Lungs: Decreased, prolonged, no significant wheezing or rails CV: S1-S2, regular Abdomen: Soft, nontender, nondistended Extremities: Trace pretibial edema Neuro: No focal deficits Psych: Cooperative, normal mood Updated Medication List Medication Instructions Recorded Confirmed Type montelukast 10 mg tablet 10 mg PO PM 04/08/19 04/13/24 History atorvastatin 20 mg tablet 20 mg PO QAM 11/26/21 04/13/24 History cholecalciferol (vitamin D3) 50 100 mcg PO QAM 11/26/21 04/13/24 History mcg (2,000 unit) capsule (Vitamin D3) levalbuterol tartrate 45 1 puff inhalation Q4H PRN 08/07/22 04/13/24 History mcg/actuation aerosol inhaler Shortness Of Breath (Xopenex HFA) sertraline 100 mg tablet 150 mg PO QAM 08/07/22 04/13/24 History tiotropium 2.5 mcg-olodaterol 2.5 2 puff inhalation QAM 11/07/22 04/13/24 History mcg/actuation mist for inhalation (Stiolto Respimat) torsemide 10 mg tablet 20 mg PO QAM 11/07/22 04/13/24 History ipratropium bromide 21 mcg (0.03 2 spray intranasal DAILY PRN 12/06/22 04/13/24 History %) nasal spray rhinorrhea pantoprazole 40 mg tablet,delayed 40 mg PO BID #60 tabs 12/09/22 04/13/24 Rx release allopurinol 300 mg tablet 300 mg PO HS 08/14/23 04/13/24 History metoprolol succinate 25 mg 25 mg PO BID #60 tabs 10/22/23 04/13/24 Rx tablet,extended release 24 hr diphenoxylate-atropine 2.5 1 tab PO BID PRN Diarrhea 03/07/24 04/13/24 History mg-0.025 mg tablet lidocaine 5 % topical patch 1 patch topical DAILY PRN pain #15 03/07/24 04/13/24 Rx (Lidoderm) ea levothyroxine 175 mcg tablet 175 mcg PO DAILY 03/21/24 04/13/24 History fentanyl 12 mcg/hr transdermal 12 mcg transdermal Q3D 03/23/24 04/13/24 History patch aspirin 81 mg tablet,delayed 81 mg PO QAM #30 tabs 03/25/24 04/13/24 Rx release oxycodone 5 mg tablet 5 mg PO QID PRN pain severe #35 03/25/24 04/13/24 Rx tabs acetaminophen 500 mg tablet 1,000 mg PO Q6H PRN Pain 04/13/24 04/13/24 History (Tylenol Extra Strength) benzonatate 100 mg capsule 100 mg PO Q6H PRN cough #20 caps 04/15/24 Rx guaifenesin 600 mg tablet, 600 mg PO Q12 PRN cough #20 tabs 04/15/24 Rx extended release 12 hr (Mucinex) Hospital Stay Data Consultations 04/13/24 00:20 ED Decision to Admit Stat Diagnostic Imagining Performed Reviewed imaging, laboratory and diagnostic studies. Pertinent findings as below. Hemoglobin 10.4 Creatinine 1.37, improved and at baseline Mild troponin elevation due to COVID, no evidence of ACS Pending Results Patient Have Any Pending Studies at Discharge: No Discharge Instructions Given to Patient (Per Discharging Provider) Recommend limiting your exposure to other people for the next 5 days, recommend wearing a mask if needing to go out of the house or meet with people in your home Home Health Attestation I certify that this patient is under my care and that I, or a physicians marketing assistant manager working with me, had a face to-face encounter that meets the home health [id number] encounter requirements with this patient. The encounter with the patient was in whole, or in part, for the following medical condition, which is the primary reason for home health care (list medical condition): I certify that, based on my findings, the following services are medically necessary home health services: My clinical findings support the need for the above services because: Further, I certify that my clinical findings support that this patient is homebound (i.e. absences from home require considerable and taxing effort and are for medical reasons or [facility] services or infrequently or of short duration when for other reasons) because: Certification for Home Health Services: Based on the above findings, I certify that this patient is confined to the home and needs intermittent [facility] care, physical therapy and/or speech therapy or continues to need occupational therapy. The patient is under my care, and I have initiated the establishment of the plan of care. This patient will be followed by a physician who will periodically review the plan of care. Total Time Total Time Spent Total Time Spent (In Minutes): 34
[2024-04-15 11:37] VITALS: O2SAT 93
[2024-04-15 11:58] VITALS: BP 100/74; PULSE 76; TEMP 97.7
== END 2024-04-15 13:30 | disposition home or self-care (01) | DRG 177 ==
LOC: ED 19:38 → 2N 04-13 03:45 → 3N 04-14 18:50

== ENCOUNTER 2024-05-13 15:59 | Inpatient (IN) ==
[2024-05-13 16:54] LABS: Basophils # (auto) 0.05 K/uL (0.00-0.20); Basophils % (auto) 0.4 %; Eosinophils # (auto) 0.11 K/uL (0.00-0.50); Eosinophils % (auto) 0.9 %; Hemoglobin 11.8 g/dl (12.0-16.0); Immature Granulocytes # (auto) 0.04 K/uL (0.01-0.20); Immature Granulocytes % (auto) 0.3 %; Lymphocytes # (auto) 1.45 K/uL (1.20-3.40); Lymphocytes % (auto) 12.3 %; Mean Corpuscular Hgb Conc 32.8 g/dL (32.0-36.0); Mean Corpuscular Volume 91.6 fL (80.0-100.0); Mean Platelet Volume 11.1 fL (9.4-12.4); Monocytes # (auto) 0.86 K/uL (0.11-0.59); Monocytes % (auto) 7.3 %; Neutrophils # (auto) 9.29 K/uL (1.40-6.50); Neutrophils % (auto) 78.8 %; Platelet Count 260 K/uL (130-400); RDW Coefficient of Variation 16.4 % (11.5-14.5); RDW Standard Deviation 54.4 fL (36.4-46.3); Red Blood Count 3.93 M/uL (4.20-5.40)
--- NOTE | 2024-05-13 16:58 | XRay Report ---
XR chest 1V not portable HISTORY: Sepsis COMPARISON: Chest 04/12/2024. FINDINGS: No focal lung consolidations to suggest a pneumonia. No evidence for pulmonary edema. The c ardiac silhouette is top normal in size. There is left-sided pacemaker again noted. Cervical spinal f usion hardware is partially visualized. No acute fractures. Prior cholecystectomy. IMPRESSION: No acute process. ACT 112: Negative or not required by law. Electronically signed by: Jean-Claude Anderson M.D. 05/13/2024 4:57 PM
[2024-05-13 17:09] LABS: Alanine Aminotransferase 28 U/L (7-52); Albumin Globulin Ratio 1.2 (0.9-2); Albumin Level 3.7 gm/dl (3.4-5.0); Alkaline Phosphatase 260 U/L (34-104); Anion Gap 12 (3-11); Aspartate Aminotransferase 64 U/L (13-39); BUN Creatinine Ratio 44.5 (10-20); Bilirubin,Total 0.7 mg/dl (0.2-1.0); Blood Urea Nitrogen 102 mg/dl (6-23); Calcium 9.6 mg/dl (8.6-10.3); Carbon Dioxide 23 mmol/L (21-32); Chloride 100 mmol/L (98-107); Est GFR (African American) 22.2 ml/min; Est GFR (Non-African American) 19.1 ml/min; Globulin 3.1 gm/dl (2.5-4.0); Glucose 135 mg/dl (70-99(Fasting)); Magnesium 2.2 mg/dl (1.7-2.4); Potassium 3.7 mmol/L (3.5-5.1); Sodium 135 mmol/L (136-145); Total Protein 6.8 gm/dl (6.0-8.3)
[2024-05-13 17:15] LABS: Troponin I High Sensitivity 14.1 pg/ml (0-14)
--- NOTE | 2024-05-13 18:02 | Emergency Department Note ---
Impression & Plan Weakness, Vomiting, TIFFANY (acute kidney injury), Acute dehydration ED Provider Note NAME: LORI MORALES AGE: 83 SEX: F : 1940 ARRIVES VIA: Walk-In INFORMANT: Patient, ED PROVIDER(S): Carlos Lizama DO CHIEF COMPLAINT: Weakness HPI: The patient is an 83-year-old female who presented to the emergency department for evaluation of generalized weakness. The patient's been having problems with decreased p.o. intake and nausea. She has not been eating well. She has a history of chronic renal disease. She went to see her family doctor today. She was sent to the emergency department for further evaluation as well as inpatient management because her kidney function appears to be elevating. She denies having any back pain or abdominal pain. She denies having any rectal bleeding. She denies having any chest pain. She does complain of some shortness of breath. She denies having palpitations. She states that she has tried to be compliant with her outpatient medications as best possible. ROS: See above HPI for pertinent positives & negatives. A total of 10 systems reviewed and were otherwise negative. PAST MEDICAL HISTORY: See Below PAST SURGICAL HISTORY: See Below FAMILY HISTORY: See Below SOCIAL HISTORY: See Below HOME MEDICATIONS: See Below ALLERGIES: See Below VITALS: See Below PHYSICAL EXAMINATION: GENERAL: Patient is awake alert in no acute distress patient is resting comfortably and showing no signs of anxiety EYES: The conjunctivae are clear. The pupils are round and reactive. EARS, NOSE, MOUTH AND THROAT: The nose is without any evidence of any deformity. NECK: The neck is nontender and supple. RESPIRATORY: Normal respiratory effort is noted there is no evidence of wheezing rhonchi or rales CARDIOVASCULAR: Regular rate and rhythm noted there no murmurs rubs or gallops normal S1 normal S2. GASTROINTESTINAL: The abdomen is soft. Abdomen is nontender. MUSCULOSKELETAL/EXTREMITIES: There is no evidence of gross deformity full range of motion is noted in the hips and shoulders. SKIN: There is no obvious evidence of any rash. There are no petechiae, pallor or cyanosis noted. NEUROLOGIC: Patient is awake alert and oriented x3. Strength was symmetric but diminished. MEDICAL DECISION MAKING: The patient is an 83-year-old female with significant past medical history who presented to the emergency department for an evaluation of nausea vomiting. The patient's had declining health recently. She is been having trouble eating and drinking. She went to see her family doctor for the symptoms today. She had outpatient lab studies obtained which suggested the patient may have some degree of dehydration and TIFFANY. She was treated in the emergency department with IV fluids and IV Zofran. I discussed her laboratory conditions with her. I discussed her condition with the on-call [facility] hospitalist. They have agreed to evaluate the patient in the emergency department for further management and disposition. Triage Nursing notes reviewed. Prior medical records reviewed Vital Signs: reviewed and remarkable for hypotension. Differential diagnosis: Infection, dehydration, metabolic abnormality, hypo/hyperglycemia, electrolyte disturbance, anemia, hypoxia, cardiac sources, intracerebral event, toxicologic, neurologic, as well as other pathologies. ER treatment provided: See below Diagnostics interpreted by me: ECG: EKG was obtained in the emergency department. My interpretation is sinus rhythm at 92 bpm. First-degree AV block was noted. Nonspecific ST segment abnormalities were noted. This was compared to a tracing from April 12, 2024. Atrial fibrillation has been replaced with sinus rhythm compared to the previous tracing. Cardiac Monitoring: An order was placed for continuous cardiac monitoring. The monitor shows a rate of 98 bpm with sinus rhythm. Laboratory studies: As stated above and show below. Imaging studies: See below. Radiographic imaging was reviewed by myself Consultation(s): I discussed this case [facility]. 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 difficile diarrhea (Acute) Adult failure to thrive (Acute) Generalized weakness (Acute) S/P mitral valve clip implantation Presence of Watchman left atrial appendage closure device CAD (coronary artery disease) Cardiac pacemaker in situ (Acute) CKD (chronic kidney disease) (Acute) Anemia (Acute) TIA (transient ischemic attack) (Acute) Depression Hypothyroidism RADHA (obstructive sleep apnea) SSS (sick sinus syndrome) Chronic diastolic (congestive) heart failure CKD (chronic kidney disease), stage III TIA (transient ischemic attack) Anemia (Acute) Leukocytosis (Acute) Chronic anticoagulation (Acute) Acute renal insufficiency Severe mitral insufficiency Acute on chronic diastolic heart failure Paroxysmal atrial fibrillation Stroke-like symptoms (Acute) Acute on chronic anemia COVID-19 (Acute) COVID-19 (Acute) History of tobacco abuse Asthma, moderate persistent (Chronic) Meniere disease (Chronic) Atrial fibrillation and flutter (Chronic) History of laminectomy (Chronic) H/O sinus surgery (Chronic) Hx of neck surgery (Chronic) History of repair of left rotator cuff (Chronic) Medical History Generalized weakness Pericardial effusion Low back pain Angio-edema Nausea Leukocytosis Near syncope Hypotension Dehydration TIFFANY (acute kidney injury) Near syncope Elevated brain natriuretic peptide (BNP) level Pneumonia Atrial flutter Carotid artery aneurysm Prolonged QT interval Atrial fibrillation with RVR DM type 2 (diabetes mellitus, type 2) Encounter for pre-operative examination Cholelithiasis Cholecystitis Chest pain at rest Pulmonary emphysema Osteoarthritis of right knee HTN (hypertension) Surgical History History of hysterectomy History of cholecystectomy Family History Father Diabetes Social History Smoking Status: Never smoker Tobacco Type: Cigarettes packs per day: 1.5; Cigarettes Per Day: 30; Second Hand Exposure: No; Do You Dip or Chew Tobacco: No; Hx Alcohol Use: No Hx Substance Use: No Preferred Language: Omani Communication Ability: Effective Endorsement Clerk Required: No Beliefs That Will Affect Care: None marital status: Current Living Situation: Spouse Feels Safe at Home: Yes Assistive Devices: Oxygen - at Night Allergies Allergies Allergy/AdvReac Type Severity Reaction Status Date / Time Sulfa (Sulfonamide Allergy Severe Severe Verified 04/13/24 00:16 Antibiotics) rxn: rash and hives celecoxib Allergy Intermediate Rash/Hives/ Verified 04/13/24 00:16 Itching. cephalexin Allergy Intermediate Rash/Hives/ Verified 04/13/24 00:16 Itching. furosemide Allergy Intermediate Rash/Hives/ Verified 04/13/24 00:16 Itching. gabapentin Allergy Intermediate Rash/Hives/ Verified 04/13/24 00:16 Itching. pregabalin Allergy Intermediate Rash/Hives/ Verified 04/13/24 00:16 Itching. meclizine Allergy Unknown Unknown Verified 04/13/24 00:16 methylprednisolone Allergy Unknown Rash/Hives/ Verified 04/13/24 00:16 Itching. Penicillins Allergy Unknown Unknown. Verified 04/13/24 00:16 prednisone Allergy Unknown Rash/Hives/ Verified 04/13/24 00:16 Itching. vancomycin Allergy Unknown Jodi Verified 04/13/24 00:16 syn. . nickel Allergy Unknown Verified 04/13/24 00:16 dexamethasone AdvReac Intermediate Steroid Verified 04/13/24 00:16 psychosis. Home Meds Home Medications Medication Instructions Recorded Confirmed montelukast 10 mg tablet 10 mg PO PM 04/08/19 04/13/24 atorvastatin 20 mg tablet 20 mg PO QAM 11/26/21 04/13/24 cholecalciferol (vitamin D3) 50 100 mcg PO QAM 11/26/21 04/13/24 mcg (2,000 unit) capsule (Vitamin D3) levalbuterol tartrate 45 1 puff inhalation Q4H PRN 08/07/22 04/13/24 mcg/actuation aerosol inhaler Shortness Of Breath (Xopenex HFA) sertraline 100 mg tablet 150 mg PO QAM 08/07/22 04/13/24 tiotropium 2.5 mcg-olodaterol 2.5 2 puff inhalation QAM 11/07/22 04/13/24 mcg/actuation mist for inhalation (Stiolto Respimat) torsemide 10 mg tablet 20 mg PO QAM 11/07/22 04/13/24 ipratropium bromide 21 mcg (0.03 2 spray intranasal DAILY PRN 12/06/22 04/13/24 %) nasal spray rhinorrhea allopurinol 300 mg tablet 300 mg PO HS 08/14/23 04/13/24 diphenoxylate-atropine 2.5 1 tab PO BID PRN Diarrhea 03/07/24 04/13/24 mg-0.025 mg tablet levothyroxine 175 mcg tablet 175 mcg PO DAILY 03/21/24 04/13/24 fentanyl 12 mcg/hr transdermal 12 mcg transdermal Q3D 03/23/24 04/13/24 patch acetaminophen 500 mg tablet 1,000 mg PO Q6H PRN Pain 04/13/24 04/13/24 (Tylenol Extra Strength) Previous Rx's Medication Instructions Recorded pantoprazole 40 mg tablet,delayed 40 mg PO BID #60 tabs 12/09/22 release metoprolol succinate 25 mg 25 mg PO BID #60 tabs 10/22/23 tablet,extended release 24 hr lidocaine 5 % topical patch 1 patch topical DAILY PRN pain #15 03/07/24 (Lidoderm) ea aspirin 81 mg tablet,delayed 81 mg PO QAM #30 tabs 03/25/24 release oxycodone 5 mg tablet 5 mg PO QID PRN pain severe #35 03/25/24 tabs benzonatate 100 mg capsule 100 mg PO Q6H PRN cough #20 caps 04/15/24 guaifenesin 600 mg tablet, 600 mg PO Q12 PRN cough #20 tabs 04/15/24 extended release 12 hr (Mucinex) Results & Data (ED) Vital Signs Vital Signs - 24 hr 05/13/24 16:00 05/13/24 18:08 Temperature 36.3 C L Temperature Source Temporal Artery Scan Pulse Rate 91 H 90 Respiratory Rate 18 Blood Pressure 97/58 L Blood Pressure Mean 71 Pulse Oximetry 100 Sepsis Recent Fever Within 48 Hours No Sepsis New/Unexplained Change in Mental Status N/A Sepsis Action Taken by Nursing No Action Required Home Medications Current Medication List: was personally reviewed by me Laboratory Data Attestation: I reviewed the patient's lab results. 05/13/24 16:29 05/13/24 16:29 Lab Results 05/13/24 Range/Units 16:29 WBC 11.80 H (4.8-10.8) K/ul RBC 3.93 L (4.20-5.40) M/uL Hgb 11.8 L (12.0-16.0) g/dl Hct 36.0 L (37.0-47.0) % MCV 91.6 (80.0-100.0) fL MCH 30.0 (25.0-34.0) pg MCHC 32.8 (32.0-36.0) g/dL RDW Std Deviation 54.4 H (36.4-46.3) fL RDW Coeff of Francisco Javier 16.4 H (11.5-14.5) % Plt Count 260 (130-400) K/uL MPV 11.1 (9.4-12.4) fL Immature Gran % (Auto) 0.3 % Neut % (Auto) 78.8 % Lymph % (Auto) 12.3 % [place] % (Auto) 7.3 % Eos % (Auto) 0.9 % Baso % (Auto) 0.4 % Neut # (Auto) 9.29 H (1.40-6.50) K/uL Lymph # (Auto) 1.45 (1.20-3.40) K/uL [place] # (Auto) 0.86 H (0.11-0.59) K/uL Eos # (Auto) 0.11 (0.00-0.50) K/uL Baso # (Auto) 0.05 (0.00-0.20) K/uL Immature Gran # (Auto) 0.04 (0.01-0.20) K/uL PT Cancelled INR Cancelled APTT Cancelled PTT Ratio Cancelled Sodium 135 L (136-145) mmol/L Potassium 3.7 (3.5-5.1) mmol/L Chloride 100 (98-107) mmol/L Carbon Dioxide 23 (21-32) mmol/L Anion Gap 12 H (3-11) BUN 102 H (6-23) mg/dl Creatinine 2.29 H (0.6-1.2) mg/dl Est Cr Clr Drug Dosing Not Reportable Est GFR ( Amer) 22.2 ml/min Est GFR (Non-Af Amer) 19.1 ml/min BUN/Creatinine Ratio 44.5 H (10-20) Glucose 135 H (70-99(Fasting)) mg/dl Lactate 1.7 (0.4-2.0) mmol/L Calcium 9.6 (8.6-10.3) mg/dl Magnesium 2.2 (1.7-2.4) mg/dl Total Bilirubin 0.7 (0.2-1.0) mg/dl AST 64 H (13-39) U/L ALT 28 (7-52) U/L Alkaline Phosphatase 260 H (34-104) U/L Troponin I High Sens 14.1 H (0-14) pg/ml Total Protein 6.8 (6.0-8.3) gm/dl Albumin 3.7 (3.4-5.0) gm/dl Globulin 3.1 (2.5-4.0) gm/dl Albumin/Globulin Ratio 1.2 (0.9-2) Procalcitonin Cancelled Administered Medications Sodium Chloride (Nss) 1,000 mls @ 999 mls/hr IV .Q1H1M ONE Stop: 05/13/24 18:51 Last Admin: 05/13/24 18:24 Dose: 999 mls/hr Documented By: CEF Imaging Data Attestation: I personally reviewed and interpreted this imaging study as follows: My Impression: 1 view chest x-ray was obtained in the emergency department. My interpretation is no free air or definite infiltrate, final report below Radiologist's Impression: Chest X-Ray 05/13/24 16:10 XR chest 1V not portable HISTORY: Sepsis COMPARISON: Chest 04/12/2024. FINDINGS: No focal lung consolidations to suggest a pneumonia. No evidence for pulmonary edema. The cardiac silhouette is top normal in size. There is left- sided pacemaker again noted. Cervical spinal fusion hardware is partially visualized. No acute fractures. Prior cholecystectomy. IMPRESSION: No acute process. ACT 112: Negative or not required by law. Electronically signed by: Jean-Claude Anderson M.D. 05/13/2024 4:57 PM Discharge Plan Visit Data Chief Complaint: Abnormal Labs/Diagnostic Testing Stated Complaint: ABNORMAL LABS, KIDNEY AND LIVER ED Provider: Carlos Lizama Discharge Problem: Weakness, Vomiting, TIFFANY (acute kidney injury), Acute dehydration Patient Disposition: Being Evaluated by Hospitalist Forms Stand Alone Forms: My [facility] Prescriptions Prescriptions: No Action montelukast 10 mg tablet 10 mg PO PM ipratropium bromide 21 mcg (0.03 %) spray,non-aerosol 2 spray INTRANASAL DAILY PRN (Reason: rhinorrhea ) pantoprazole 40 mg tablet,delayed release (DR/EC) 40 mg PO BID Qty: 60 0RF atorvastatin 20 mg tablet 20 mg PO QAM cholecalciferol (vitamin D3) [Vitamin D3] 50 mcg (2,000 unit) Capsule 100 mcg PO QAM sertraline 100 mg Tablet 150 mg PO QAM levalbuterol tartrate [Xopenex HFA] 45 mcg/actuation Hfa Aerosol Inhaler 1 puff INHALATION Q4H PRN (Reason: Shortness Of Breath) torsemide 10 mg tablet 20 mg PO QAM Stiolto Respimat 2.5-2.5 mcg/actuation mist 2 puff INHALATION QAM allopurinol 300 mg tablet 300 mg PO HS metoprolol succinate 25 mg Tablet Extended Release 24 Hr 25 mg PO BID Qty: 60 0RF levothyroxine 175 mcg tablet 175 mcg PO DAILY fentanyl 12 mcg/hr patch 72 hour 12 mcg transdermal Q3D Rx Instructions: needs changed today aspirin 81 mg Tablet,Delayed Release (Dr/Ec) 81 mg PO QAM Qty: 30 0RF oxycodone 5 mg Tablet 5 mg PO QID PRN (Reason: pain severe) Qty: 35 0RF Rx Instructions: Ongoing therapy acetaminophen [Tylenol Extra Strength] 500 mg Tablet 1,000 mg PO Q6H PRN (Reason: Pain) guaifenesin [Mucinex] 600 mg Tablet Extended Release 12hr 600 mg PO Q12 PRN (Reason: cough) Qty: 20 0RF benzonatate 100 mg capsule 100 mg PO Q6H PRN (Reason: cough) Qty: 20 0RF diphenoxylate-atropine 2.5-0.025 mg tablet 1 tab PO BID PRN (Reason: Diarrhea) lidocaine [Lidoderm] 5 % adhesive patch,medicated 1 patch TOP DAILY PRN (Reason: pain) Qty: 15 0RF Rx Instructions: leave on most painful area for up to 12 hrs Referrals Referrals: Florentin Calvo DO [Primary Care Provider] - Discharge Problem: Vomiting Qualifiers: Vomiting type: unspecified Nausea presence: with nausea Qualified Code(s): R 11.2 - Nausea with vomiting, unspecified
[2024-05-13] MEDS: SODIUM CHLORIDE 0.9% 1,000 ML IV ONE (18:24)
--- NOTE | 2024-05-13 18:31 | History & Physical Report ---
Date of Service May 13, 2024 Assessment & Plan (1) Generalized weakness: (2) TIFFANY (acute kidney injury): Plan Inga Barakat is an 83y/o F with PMHx of DM type II, secondary hyperparathyroidism, diabetic retinopathy, CKD stage III, hypothyroidism, polyneuropathy, PVD, HLD, RADHA, moderate persistent asthma, nocturnal hypoxemia, COPD, paroxysmal atrial fibrillation s/p Watchman procedure, sick sinus syndrome s/p pacemaker placement, pulmonary hypertension, chronic diastolic CHF, left carotid artery aneurysm, aortic atherosclerosis, severe tricuspid regurgitation, s/p mitral valve clip for severe mitral regurgitation, GERD, sigmoid diverticulosis, Mnire's disease, anemia, history of TIA, history of endometrial cancer, depression and other problems listed below who presented to the ED today for evaluation of generalized weakness. Generalized Weakness, Nausea/Vomiting: History as per HPI. Leukocytosis noted. No fever. COVID-positive, CXR negative. Lactate negative. Procalcitonin slightly bumped. CTAP pending. S/p 1L NSS in ED. Will hold off on additional IVF at this time to avoid fluid overload. UA pending. Isolation precautions. PT/OT evaluations pending. PRN IV Zofran. Full liquid diet for now. Will advance diet as tolerated. TIFFANY on CKD Stage III: Cr 2.29 on admission. Baseline Cr ~1.7-1.8 per chart review. Will continue torsemide for now given IVF replacement. Nephro consult pending. Avoid nephrotoxic medications when able. Monitor renal function closely with AM labs. Mild Transaminitis: AST 64 and Alk Phos 260 on admission. Appears patient's LFTs are elevated at baseline. Will continue to monitor with AM labs. Elevated Troponin: Troponin slightly bumped at 14.1; EKG without any overt ischemic changes. No chest pain. Appears troponin has been chronically elevated in the past, however will follow repeat enzymes. Chronic Diastolic CHF, Severe Tricuspid Regurgitation: Mild BLE edema on exam. Monitor closely for volume overload. CXR negative for any edema/effusions. Will continue torsemide for now given IVF hydration. RADHA, Nocturnal Hypoxia: Continue baseline 2L O2 HS. Paroxysmal AFib S/P Watchman Procedure: Continue metoprolol succinate and aspirin therapy. Continuous cardiac monitoring in place, metoprolol with hold parameters. Asthma/COPD: Can continue home medications. DM Type II: Diet-controlled. A1c was 6.9% on 03/24/24. Hold off on SSI for now. BSG checks ACHS. Monitor BSG. Other Chronic Medical Conditions: Hypothyroidism, HLD, gout, GERD and depression --> Can continue home medications for these specific conditions. DVT Prophylaxis: SQ Heparin Code Status: FULL CODE PCP: Florentin Calvo DO Disposition: Admit to Med/Surg + Telemetry Patient seen in collaboration with Dr. Wilkinson. Please see addendum. I spent a total of 50 minutes coordinating, documenting, and providing care for this patient excluding time spent in the performance of separately billed services. This included personally reviewing all current laboratories and imaging studies, medical reconciliation, outpatient chart review and discussion with specialists. This chart was completed in part utilizing Speech Voice Recognition Software. Grammatical errors, random word insertions, pronoun errors, and incomplete sentences are an occasional consequence of this system due to software limitations, ambient noise, and hardware issues. Any formal questions or concerns about the content, text, or information contained within the body of this dictation should be directly addressed to the provider for clarification. History of Present Illness Chief Complaint: Generalized Weakness Primary Care Provider: Florentin Calvo DO Inga Barakat is an 83y/o F with PMHx of DM type II, secondary hyperparathyroidism, diabetic retinopathy, CKD stage III, hypothyroidism, polyneuropathy, PVD, HLD, RADHA, moderate persistent asthma, nocturnal hypoxemia, COPD, paroxysmal atrial fibrillation s/p Watchman procedure, sick sinus syndrome s/p pacemaker placement, pulmonary hypertension, chronic diastolic CHF, left carotid artery aneurysm, aortic atherosclerosis, severe tricuspid regurgitation, s/p mitral valve clip for severe mitral regurgitation, GERD, sigmoid diverticulosis, Mnire's disease, anemia, history of TIA, history of endometrial cancer, depression and other problems listed below who presented to the ED today for evaluation of generalized weakness. History obtained from patient, son at bedside and associated chart review. Patient reports that she has felt more weak over the past few days. Has been battling increased nausea and vomiting over the past 3 days. Her oral intake has been significantly decreased. Reports she has been trying to hydrate well. She has chronic diarrhea at baseline, has not noticed an increase in frequency. No urinary symptoms reported. Denies any fevers, cough or sinus congestion. She had recent lab work ordered by her PCP. Was called today and informed that her creatinine was elevated, her LFTs were elevated and that her white blood cell count was elevated. Therefore she was instructed to come to the ED for further evaluation. Patient was recently treated with doxycycline for a right great toe infection. Son reports that this antibiotic was ordered by her laborer tanbark. Patient completed the course of antibiotics yesterday. She denies any recent sick contacts, however she recently was diagnosed with COVID during her hospitalization here last month. Patient wears 2L O2 HS at baseline. Does not require oxygen support throughout the day. Allergies Allergy/AdvReac Type Severity Reaction Status Date / Time Sulfa (Sulfonamide Allergy Severe Severe Verified 04/13/24 00:16 Antibiotics) rxn: rash and hives celecoxib Allergy Intermediate Rash/Hives/ Verified 04/13/24 00:16 Itching. cephalexin Allergy Intermediate Rash/Hives/ Verified 04/13/24 00:16 Itching. furosemide Allergy Intermediate Rash/Hives/ Verified 04/13/24 00:16 Itching. gabapentin Allergy Intermediate Rash/Hives/ Verified 04/13/24 00:16 Itching. pregabalin Allergy Intermediate Rash/Hives/ Verified 04/13/24 00:16 Itching. meclizine Allergy Unknown Unknown Verified 04/13/24 00:16 methylprednisolone Allergy Unknown Rash/Hives/ Verified 04/13/24 00:16 Itching. Penicillins Allergy Unknown Unknown. Verified 04/13/24 00:16 prednisone Allergy Unknown Rash/Hives/ Verified 04/13/24 00:16 Itching. vancomycin Allergy Unknown Jodi Verified 04/13/24 00:16 syn. . nickel Allergy Unknown Verified 04/13/24 00:16 dexamethasone AdvReac Intermediate Steroid Verified 04/13/24 00:16 psychosis. Home Medications Medication Instructions Recorded Confirmed Type montelukast 10 mg tablet 10 mg PO PM 04/08/19 05/13/24 History atorvastatin 20 mg tablet 20 mg PO QAM 11/26/21 05/13/24 History cholecalciferol (vitamin D3) 50 100 mcg PO QAM 11/26/21 05/13/24 History mcg (2,000 unit) capsule (Vitamin D3) levalbuterol tartrate 45 1 puff inhalation Q4H PRN 08/07/22 05/13/24 History mcg/actuation aerosol inhaler Shortness Of Breath (Xopenex HFA) sertraline 100 mg tablet 150 mg PO QAM 08/07/22 05/13/24 History tiotropium 2.5 mcg-olodaterol 2.5 2 puff inhalation QAM 11/07/22 05/13/24 History mcg/actuation mist for inhalation (Stiolto Respimat) torsemide 10 mg tablet 20 mg PO QAM 11/07/22 05/13/24 History ipratropium bromide 21 mcg (0.03 2 spray intranasal DAILY PRN 12/06/22 05/13/24 History %) nasal spray rhinorrhea pantoprazole 40 mg tablet,delayed 40 mg PO BID #60 tabs 12/09/22 05/13/24 Rx release allopurinol 300 mg tablet 300 mg PO HS 08/14/23 05/13/24 History metoprolol succinate 25 mg 25 mg PO BID #60 tabs 10/22/23 05/13/24 Rx tablet,extended release 24 hr diphenoxylate-atropine 2.5 1 tab PO BID PRN Diarrhea 03/07/24 05/13/24 History mg-0.025 mg tablet levothyroxine 175 mcg tablet 175 mcg PO DAILYBB 03/21/24 05/13/24 History fentanyl 12 mcg/hr transdermal 12 mcg transdermal Q3D 03/23/24 05/13/24 History patch aspirin 81 mg tablet,delayed 81 mg PO QAM #30 tabs 03/25/24 05/13/24 Rx release oxycodone 5 mg tablet 5 mg PO QID PRN pain severe #35 03/25/24 05/13/24 Rx tabs acetaminophen 500 mg tablet 1,000 mg PO Q6H PRN Pain 04/13/24 05/13/24 History (Tylenol Extra Strength) benzonatate 100 mg capsule 100 mg PO Q6H PRN cough #20 caps 04/15/24 05/13/24 Rx guaifenesin 600 mg tablet, 600 mg PO Q12 PRN cough #20 tabs 04/15/24 05/13/24 Rx extended release 12 hr (Mucinex) buspirone 5 mg tablet 5 mg PO AMHS 05/13/24 05/13/24 History ondansetron HCl 4 mg tablet 4 mg PO UD PRN Nausea And Vomiting 05/13/24 05/13/24 History Past Med/Surg History Problem List Transaminitis Acute dehydration (Acute) TIFFANY (acute kidney injury) (Acute) Vomiting (Acute) Weakness (Acute) Nocturnal hypoxemia due to emphysema Chronic renal failure (CRF), stage 3b Acute bronchitis due to COVID-19 virus COVID-19 (Acute) Non-ST elevation AL (NSTEMI) (Acute) Generalized weakness (Acute) Thoracic compression fracture Diarrhea Elevated troponin (Acute) C. difficile diarrhea (Acute) Adult failure to thrive (Acute) Generalized weakness (Acute) S/P mitral valve clip implantation Presence of Watchman left atrial appendage closure device CAD (coronary artery disease) Cardiac pacemaker in situ (Acute) CKD (chronic kidney disease) (Acute) Anemia (Acute) TIA (transient ischemic attack) (Acute) Depression Hypothyroidism RADHA (obstructive sleep apnea) SSS (sick sinus syndrome) Chronic diastolic (congestive) heart failure CKD (chronic kidney disease), stage III TIA (transient ischemic attack) Anemia (Acute) Leukocytosis (Acute) Chronic anticoagulation (Acute) Acute renal insufficiency Severe mitral insufficiency Acute on chronic diastolic heart failure Paroxysmal atrial fibrillation Stroke-like symptoms (Acute) Acute on chronic anemia COVID-19 (Acute) COVID-19 (Acute) History of tobacco abuse Asthma, moderate persistent (Chronic) Meniere disease (Chronic) Atrial fibrillation and flutter (Chronic) History of laminectomy (Chronic) H/O sinus surgery (Chronic) Hx of neck surgery (Chronic) History of repair of left rotator cuff (Chronic) Medical History Generalized weakness Pericardial effusion Low back pain Angio-edema Nausea Leukocytosis Near syncope Hypotension Dehydration TIFFANY (acute kidney injury) Near syncope Elevated brain natriuretic peptide (BNP) level Pneumonia Atrial flutter Carotid artery aneurysm Prolonged QT interval Atrial fibrillation with RVR DM type 2 (diabetes mellitus, type 2) Encounter for pre-operative examination Cholelithiasis Cholecystitis Chest pain at rest Pulmonary emphysema Osteoarthritis of right knee HTN (hypertension) Surgical History History of hysterectomy History of cholecystectomy Family History Father Diabetes Social History Smoking Status: Never smoker Tobacco Type: Cigarettes packs per day: 1.5; Cigarettes Per Day: 30; Second Hand Exposure: No; Do You Dip or Chew Tobacco: No; Hx Alcohol Use: No Hx Substance Use: No Preferred Language: Monegasque Communication Ability: Effective Technical Project Lead Required: No Beliefs That Will Affect Care: None marital status: Current Living Situation: Spouse Feels Safe at Home: Yes Assistive Devices: Oxygen - at Night Review of Systems Review of Systems: At least ten systems reviewed and negative, except as noted in the HPI. Physical Exam Physical Exam: General: WD/WN, vitals as above, NAD, laying down in bed, pleasant, conversing appropriately. A+Ox3, euthymic affect. HEENT: Normocephalic, atraumatic. PERRL, conjunctivae normal, anicteric sclerae, oropharynx slightly dry. Respiratory: Normal respiratory effort, lungs clear to auscultation, no wheeze, rales, rhonchi. No accessory muscle use. Cardiovascular: Regular rate, rhythm, no murmur, normal peripheral pulses, 1+ BLE edema. Vessels: No JVD. Abdomen/GI: Normal bowel sounds, soft, nontender, no hepatosplenomegaly. Extremities/Musculoskeletal: No cyanosis or clubbing, extremities motor strength intact, moves all extremities. Neurologic: EOMI, accommodation nl, no face palsy, no dysarthria, CN's II-XI not formally tested but appear grossly intact bilaterally. Skin: No rashes, normal color, warm/dry. Right great toe with mild medial erythema, no discharge and not tender to palpation. Results & Data Results & Data Vital Signs (Past 12 Hours) Vital Signs Temp Pulse Resp BP Pulse Ox 05/13/24 18:08 90 05/13/24 16:00 36.3 C L 91 H 18 97/58 L 100 Laboratory Results Short CBC 05/13/24 Range/Units 16:29 WBC 11.80 H (4.8-10.8) K/ul Hgb 11.8 L (12.0-16.0) g/dl Hct 36.0 L (37.0-47.0) % Plt Count 260 (130-400) K/uL BMP 05/13/24 16:29 Sodium 135 L Potassium 3.7 Chloride 100 Carbon Dioxide 23 BUN 102 H Creatinine 2.29 H Glucose 135 H Calcium 9.6 Liver Function 05/13/24 Range/Units 16:29 Total Bilirubin 0.7 (0.2-1.0) mg/dl AST 64 H (13-39) U/L ALT 28 (7-52) U/L Alkaline Phosphatase 260 H (34-104) U/L Albumin 3.7 (3.4-5.0) gm/dl Diagnostic Findings Chest X-Ray 05/13/24 16:10 XR chest 1V not portable HISTORY: Sepsis COMPARISON: Chest 04/12/2024. FINDINGS: No focal lung consolidations to suggest a pneumonia. No evidence for pulmonary edema. The cardiac silhouette is top normal in size. There is left- sided pacemaker again noted. Cervical spinal fusion hardware is partially visualized. No acute fractures. Prior cholecystectomy. IMPRESSION: No acute process. ACT 112: Negative or not required by law. Electronically signed by: Jean-Claude Anderson M.D. 05/13/2024 4:57 PM Medications Administered Sodium Chloride (Nss) 1,000 mls @ 999 mls/hr IV .Q1H1M ONE Stop: 05/13/24 18:51 Last Admin: 05/13/24 18:24 Dose: 999 mls/hr Documented By: CEF Code Status & VTE Plan Code Status FULL CODE Supervising Physician Co-Signing Physician Notes Pt was seen and examined by myself, Ashley Wilkinson MD on the day of service. Care was coordinated with , DONALDO/JESS. 83-year-old female known to the service presenting with concerns for generalized weakness at home once more, along with some nausea and vomiting. Sent in by her PCP after abnormal labs noted, In particular elevated liver enzymes and creatinine. Patient states that for the last week she has not been feeling herself, she actually stopped working with her Home PT OT providers this week as a result of weakness. She does note that she recently completed a course of doxycycline for her right toe infection. On exam she is resting comfortably in the bed in no acute distress. She is able to sit up on her own with some mild difficulty for further evaluation. She did not ambulate during this exam. Breath sounds were clear bilaterally. Abdomen was soft nontender. No significant lower extremity edema, right great toe with no concern for infection at this time. N/V, elevated liver enzymes, chronic diarrhea- abdominal CT imaging ordered. CT from February 2024 reviewed, no significant findings in the abdomen at that time. Patient with chronic diarrhea, has tested positive for the C. difficile gene in the past, unsure if she has ever received treatment given that she has been symptomatic with positive gene. Will retest for C. difficile. Consider course of vancomycin treatment if C. difficile gene still positive. It is also possible that the nausea and vomiting could have been related to patient's recent use of doxycycline for 14 days. Consider GI evaluation. TIFFANY on CKD-Creatinine increased above baseline, however patient takes torsemide at home for a history of CHF. Doses have been adjusted in the outpatient setting due to her chronic kidney disease. Received a liter of fluid in the emergency room. She does follow with nephrology, will consult Nephrology while an inpatient for further volume management. Will hold off on further fluids at this time given patient's history of CHF, continue home torsemide and await further recs from nephrology. Generalized weakness, Recent COVID infection-likely multifactorial in setting of above and recent COVID infection. Patient was admitted and treated for COVID during the last recent admission, still testing positive. However she denies any respiratory symptoms, noting persistent weakness. Chest x-ray with no acute process. Pro-Celio slightly elevated, CRP pending. Patient also with slight leukocytosis, question possible superimposed bacterial infection. Noted that patient recently completed doxycycline for a toe infection, Right great toe much improved. Continue to monitor. PT OT evaluations inpatient, might need an acute rehab stay. Fall precautions. Patient was seen with her son at bedside, all questions answered to the best of this provider's ability. Otherwise as above. I spent a total [id number] coordinating, documenting, and providing care for this patient excluding time spent in the performance of separately billed services
[2024-05-13 18:59] LABS: Influenza A virus by PCR Negative (Neg); Influenza B virus by PCR Negative (Neg); RSV by PCR Negative (Neg); SARS CoV2 RNA(COVID-19) Ceph POSITIVE (Negative)
[2024-05-13 19:27] LABS: INR 1.2 (0.9-1.1); Partial Thromboplastin Ratio 1.3; Partial Thromboplastin Time 34 Seconds (21-31); Prothrombin Time 12.4 Seconds (9.0-12.0)
[2024-05-13 20:39] LABS: Appearance Urine Clear (Clear); Bacteria Urine Automated None Seen (None Seen); Bilirubin Urine Negative (Negative); Blood Urine Negative (Negative); Color Urine Yellow; Glucose Urine UA Negative (Negative); Ketones Urine Negative (Negative); Leukocyte Esterase Urine Trace (Negative); Nitrite Urine Negative (Negative); Protein Urine Negative (Negative); RBC Urine Automated 0-2 /hpf (0-2); Urobilinogen Urine Negative (Negative); WBC Urine Automated 0-5 /hpf (0-5)
[2024-05-13 20:40] LABS: Cast Urine Automated 0-2 /lpf (0-2)
[2024-05-13] MEDS ORDERED: ONDANSETRON INJ 2 MG/ML 2 ML VIAL IV PRN (23:32)
[2024-05-13] MEDS ORDERED: DIPHENOXYLATE/ATROPINE 2.5/0.025MG TAB PO PRN (23:32)
[2024-05-13] MEDS ORDERED: oxyCODONE HCL IR 5 MG TAB (IMMEDIATE RELEASE) PO PRN (23:32)
[2024-05-13] MEDS ORDERED: POLYETHYLENE (MIRALAX) 17 GM PACK PO PRN (23:32)
[2024-05-13] MEDS ORDERED: LEVALBUTEROL TARTRATE 15 GM HFA.AER.AD INH PRN (23:32)
--- NOTE | 2024-05-14 02:42 | CT Scan Report ---
Exam(s): CT ABDOMEN + PELVIS Without Contrast EXAM: CT Abdomen and Pelvis Without Intravenous Contrast CLINICAL HISTORY: Reason for exam: Nausea/vomiting, chronic diarrhea. TECHNIQUE: Axial computed tomography images of the abdomen and pelvis without intravenous contrast. CTDI is 17.23 mGy and DLP is 780.28 mGy-cm. Automated exposure control was utilized for the study. A dose lowering technique was utilized adhering to the principles of ALARA. COMPARISON: No relevant prior studies available. FINDINGS: Lung bases: Unremarkable. No mass. No consolidation. ABDOMEN: Liver: Unremarkable. Gallbladder and bile ducts: Unremarkable. No calcified stones. No ductal dilation. Pancreas: Unremarkable. No ductal dilation. Spleen: Unremarkable. No splenomegaly. Adrenals: Unremarkable. No mass. Kidneys and ureters: Multiple bilateral renal cysts. No obstructing stones. No hydronephrosis. Stomach and bowel: Diverticulosis, without acute diverticulitis. No small bowel obstruction. No free intraperitoneal air. PELVIS: Appendix: No findings to suggest acute appendicitis. Bladder: Unremarkable. No stones. Reproductive: Hysterectomy. ABDOMEN and PELVIS: Intraperitoneal space: Unremarkable. No free air. No significant fluid collection. Bones/joints: Degenerative changes of the spine. No acute fracture. No dislocation. Soft tissues: Unremarkable. Vasculature: Atherosclerotic changes of the aorta. No abdominal aortic aneurysm. Lymph nodes: Unremarkable. No enlarged lymph nodes. Tubes, lines and devices: Pacemaker leads. IMPRESSION: 1. Hysterectomy. 2. Diverticulosis, without acute diverticulitis. No small bowel obstruction. No free intraperitoneal air. Electronically signed by: Carlos Estrada MD 05/14/24 02:41 AM
[2024-05-14] MEDS: ONDANSETRON INJ 2 MG/ML 2 ML VIAL IV STA (03:55)
[2024-05-14] MEDS: allopurinoL 300 MG TAB PO SCH (04:11)
[2024-05-14] MEDS: busPIRone 5 MG TAB PO SCH (04:11)
[2024-05-14] MEDS: HEPARIN SOD 5,000 UNIT/0.5 ML VIAL SQ SCH (04:11)
[2024-05-14] MEDS: PANTOprazole 40 MG TAB PO SCH (04:12)
[2024-05-14] MEDS: METOPROLOL SUCC 25MG EXT REL TAB PO SCH (04:12)
[2024-05-14] MEDS: LEVOTHYROXINE SODIUM 175 MCG TABLET PO SCH (04:12)
[2024-05-14] MEDS: MONTELUKAST SODIUM 10 MG TABLET PO SCH (04:12)
--- OUTSIDE RECORDS SUMMARY | 2024-05-14 04:33 | External Medical Summary | Summary of Care ---
Author Name Unknown Organization [facility] Address [address] [place] [address] Phone [phone] Care Team Providers Care Weather Forcaster Name Role Phone Florentin Calvo DO Primary Care Provider [phone] Reason for Referral * Evaluate & Treat - Unlimited Visits (Within 30 days (routine)) - Authorized Specialty Diagnoses / Procedures Referred By Danny t Referred To Contact Cardiovascular Medicine / Cardiology Diagnoses Paroxysmal atrial fibrillation (HCC) Florentin Calvo DO [address] [place] [address] Referral ID Status Reason Start Date Expiration Date Visits Requested Visits Authorized [id number] Authorized Specialty Services Required 05/05/[phone] Question Answer Referral Priority Within 30 days (routine) Where should this appointment be scheduled? [facility] To which of the following clinics are you referring your patient? General Cardiology Clinic Reason for Visit * Reason Onset Date Comments Appointment 05/05/2024 Cardiology Encounter Details Date Type Department Care Team (Late st Contact Info) Description 05/05/2024 Telephone Family Practice [address] [facility] [place] [address] [place] [phone] Florentin Calvo DO [address] [place] [address] Appointment (Cardiology) Allergies Active Allergy Reactions Criticality Noted Date Comments Azithromycin Other (Please comment) 12/04/2021 QTC prolongation at [facility] Celecoxib Hives,Rash High 03/24/2013 Other [...] as of this encounter (statuses as of 05/06/2024) Medications Medication Sig Dispensed Refills Start Date [...] (Lipitor)Indications :PVD (peripheral vascular disease) ([facility]),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 90 mL 3 04/01/2023 Active Allopurinol 300 MG Oral Tablet (Zyloprim) Take 1 Tablet by mouth at bedtime. 90 Tablet 3 05/16/2023 Active Tiotropium [place]-Olodaterol 2.5-2.5 MCG/ACT Inhalation Aerosol Solution (Stiolto Respimat) [...] (toPROL XL)Indications:Parox ysmal atrial fibrillation ([facility]) Take 1 Tablet by mouth in [...] diastolic CHF (congestive heart failure) ([facility]) Take 2 Tablets by mouth in the morning. 200 Tablet 3 02/24/2024 Active Naloxone HCl 4 MG/0.1ML NA LIQD FOR CAREGIVERIndications :Compression fracture of T12 vertebra, initial encounter ([facility]) Administer 1 spray into 1 nostril for suspected opioid overdose. Seek immediate medical attention. [email or web address] 1 Each 3 03/16/2024 03/16/2025 Active Levothyroxine Sodium 175 MCG Oral Tablet [...] as needed for Pain, Breakthrough. 03/30/2024 Active fentaNYL 12 MCG/HR Transdermal Patch 72 HourIndications:Comp ression fracture of T12 vertebra, initial encounter ([facility]) Place 1 Patch over 72 hours topically on the skin every 3 days. For pain control. 10 Patch 04/19/2024 Active busPIRone HCl 5 MG Oral Tablet (Buspar) Take 1 Tablet by mouth in the morning and 1 Tablet before bedtime. 60 Tablet 3 04/21/2024 Active Doxycycline Hyclate 100 MG Oral CapsuleIndications:C ellulitis of right toe Take 1 Capsule by mouth in the morning and 1 Capsule before bedtime. Take for 7 days. 14 Capsule 05/05/2024 Active documented as of this encounter (statuses as of 05/06/2024) Active Problems Problem Noted Date Diagnosed Date Memory loss 05/05/2024 Closed wedge compression fracture of T12 vertebr a 03/12/2024 Last Assessment & Plan: Increased oxy from 2.5mg to 5mg [id number] Ortho spine ref, ?kyphoplasty Constipation 03/12/2024 [...] mitral valve clip implantation 03/06/2023 Atherosclerosis of 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 02/13/2023 Last Assessment & Plan: Continue statin, sotalol. 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 CHECKER Last Assessment & Plan: Now just using [...] as of this encounter (statuses as of 05/06/2024) Resolved Problems Problem Noted Date Diagnosed Date [...] as of this encounter (statuses as of 05/06/2024) Immunizations Name Administration Dates Next Due COVID-19 mRNA, LNP-s, No Pre serve, 2-Dose Series (Moderna) 06/23/2021,10/25/2020,09/28/2020 COVID-19, LNP-s, No Preserve , Larry-sucrose, Ages 12+ (Pfizer) 04/09/2022 COVID-19, MRNA-LNP, 23-24, P F, 30 MCG/0.3 mL, 12 YRS AND ABOVE, IM ([facility]) 06/09/2023 Covid-19, Mrna, Lnp-s, Pf, B ivalent, 30 Mcg, IM, 12 yrs and above (Pfizer) 09/10/2022 HEP A - Hepatitis A (Adult > 18 yrs) 03/15/2004, 07/29/2003 Pneumococcal Conjugate Vacc, 13 Valent (Prevnar) 09/21/2015 Pneumococcal Conjugate Vacci ne, 20-valent ([id number]) 05/05/2024 Pneumococcal Polysaccharide PPV23 (Pneumovax) 05/25/2012,07/25/2007 RSV Vac., Bivalent, Perfusio n F, Pf,0.5 Ml (Abrysvo) 07/22/2023 Seasonal Influenza Virus Vac cine, Unspecified Formulation 05/22/2021 Seasonal Influenza, High Dos e, Trivalent, PF, IM (Fluzone HD) 04/27/2024 Seasonal Influenza, PF, 6 M & above, IM , (FluLaval or Fluzone) 04/28/2018,05/28/2017 Seasonal Influenza, Quadriva lent Hd (Fluzone Hd) 05/13/2023,05/15/2022 Seasonal Influenza, Quadriva lent Hd, 65+ Yrs 04/19/2020 Seasonal Influenza, Quadriva lent, No Preserve, IM 05/07/2016 Seasonal Influenza, Trivalen t, (IIV3), with Preserv, (Fluzone) 04/26/2015,06/08/2014,05/15/2013,05/25,06/04/2011,05/28/2010,05/12/2009 ,05/25/2008 Seasonal Influenza, Trivalen t, Adjuvanted, 65+ YRS, PF, (Fluad) 05/06/2019 TDAP (age 10 and older)(Boostrix) 12/29/2018 [...] or do you have serious difficulty hearing? [place] can hear w/ hearing aid 03/07/2023 [...] Telephone Encounter - Grace Arnold OSA - 05/06/2024 10:29 AM EDT Noted, thank you!! * Telephone Encounter - Jean-Claude Atkins OSA - 05/06/2024 10:16 AM EDT Called patient, spoke with son, patient is rescheduled, and Bright is aware of the date and time of: RETURN CARDIOLOGY at 9:30 AM (30 min)Arrive by 9:15 AM Sunday June 02, 2024 Appointment Provider:Abigail Goncalves PA-C in CARDIOLOGY [facility] * Telephone Encounter - Jean-Claude Atkins OSA - 05/06/2024 9:[address] Hewitt retired in January, patient is scheduled with Abigail Goncalves on: RETURN CARDIOLOGY at 8:00 AM (30 min)Arrive by 7:45 AM Sunday May 19, 2024 Appointment Provider:Abigail Goncalves PA-C in CARDIOLOGY [facility] * Telephone Encounter - Leonie Ascencio CMA - 05/06/2024 9:14 AM EDT Cardio scheduling- Please assist with scheduling follow up for this patient. Thanks. * Telephone Encounter - Grace Arnold OSA - 05/06/2024 7:40 AM EDT Cardio, please advise. Im unable to find a spot. * Telephone Encounter - Hilda Awad LPN - 05/05/2024 2:[address] Hewitt--on 10/06/2023 I plan follow-up in 3 months or earlier if needed. Will forward to scheduling, patient should have had cardio follow up in December Thank you * Telephone Encounter - Grace Jeffries OSA - 05/05/2024 12:46 PM EDT Patients son questions Cardiology appt Wonders if she needs one Please advise documented in this encounter Plan of Treatment Upcoming Encounters Date Type Department Care Team (Late st Contact Info) Description 05/06/2024 4:00 PM EDT Home Visit [facility] [address] [facility] [place] [address] Nikolay Wu, AISHA [address] [facility] [place] [address] 05/18/2024 1:20 PM EDT Office Visit Neurology [facility] [address] [facility] [place] [address] Carmenza Colon PA-C [address] [facility] [address] 06/02/2024 9:30 AM EDT Office Visit Cardiology, [facility] [address] [facility] [place] [address] Abigail Goncalves PAMoisesC [address] [facility] [place] [address] 06/02/2024 3:20 PM EDT Office Visit Family Practice [address] [place] [address] [address] [place] [address] Florentin Calvo, DO [address] [place] [address] 06/03/2024 2:15 PM EDT Office Visit Ophthalmology, [facility] [address] [place] [address] Wilbur Benavides, DO [address] [place] [address] 06/09/2024 8:50 AM EDT Office Visit Vascular Surgery, [facility] 132 [place] [address] Aj Sahni MD [address] [place] [address] 07/01/2024 2:30 PM EST Office Visit Gastroenterology, [facility] [address] [place] [address] Lacy Ronquillo CRNP [address] [place] [address] 07/09/2024 1:00 PM EST Office Visit Nephrology, [facility] [address] [facility] [place] [address] Michelle Ivy PA-C [address] [facility] [place] [address] 07/27/2024 1:00 PM EST Office Visit Family Practice [facility] [address] [place] [address] Florentin Calvo, [address] [place] [address] 08/09/2024 1:00 PM EST Nurse Only Ancillary [address] [address] College, Nurse Annual Wellness Visit [address] [place] [address] 11/01/2024 12:00 PM EDT Office Visit Hematology/Oncology [facility] [address] [facility] [place] [id number] Nereyda Metz CRNP [address] [facility] [place] [address] Scheduled Procedures Name Priority Associated Diagnoses Date/Ti me COLONOSCOPY FLEXIBLE PROXIMA L DIAGNOSTIC Recall Diarrhea, unspecified type History of diverticulitis ESOPHAGOGASTRODUODENOSCOPY ( EGD), FLEXIBLE, TRANSORAL, DIAGNOSTIC Recall Diarrhea, unspecified type History of diverticulitis Scheduled Referrals Name Type Priority Associated Diagnoses Orde r Schedule CARDIOLOGY REFERRAL OP Referral Within 30 days (routine) Paroxysmal atrial fibrillation (HCC) Ordered: 05/05/2024 Health Maintenance Due Date Last Done Comments Alpha-1 Antitrypsin 1958 Adult Wellness Visit 10/01/2023 10/01/2022, 04/27/20 21 Diabetic Eye Exam 05/22/2024 05/22/2023, , 05/22/2023, Additional history exists O2 ASSESSMENT COMPLETED IN PAST YEAR FOR COPD 07/31/2024 07/31/2023 Diabetic Foot Exam 09/15/2024 09/15/2023, 0 10/01/2022, 10/26/2021, Additional history exists Depression Monitoring 09/29/2024 09/29/2023 GFR 10/25/2024 04/27/2024, 08/0 01/2024, 03/15/2024, Additional history exists HbA1c 10/25/2024 04/27/2024, 041 12/2023, 2023, Additional history exists Albumin/Creatinine Ratio 12/08/2024 024, 02/21/2023, 05/01/2022, Additional history exists CKD PHOS USE SMARTSET 92241 04/27/2025 09/0 10/2023, 08/19/2023, 05/01/2022, Additional history exists TSH 04/27/2025 04/27/2024, 02/23, 03/15/2024, Additional history exists CKD HGB USE SMARTSET 98823 05/01/202505/01, 05/01/2024, 04/27/2024, Additional history exists DXA Scan 05/07/2025 05/07/2021, 12/24, 04/12/2013, Additional history exists Colonoscopy 03/11/2026 03/11/2022, 02/22, 11/10/2020, Additional history exists DTap/Tdap Vaccines (3 - Td or Tdap) 12/29/2028 12/29/2018, 07/15/2009 Zoster Vaccines Completed 07/16/2019, 04/26, 03/25/2007 COVID-19 Vaccine Discontinued 06/09/2023, , 04/09/2022, Additional history exists Influenza Vaccine (FLU shot) Completed 04/27/2024, 05/13/2023, 05/15/2022, Additional history exists Pneumococcal Vaccine: 65+ Years Completed 05/05/2024, 09/21/2015, 05/25/2012, Additional history exists HPV (Gardasil) Vaccine Aged Out No lo nger eligible based on patient's age to complete this topic Hepatitis B Vaccine Aged Out No longe r eligible based on patient's age to complete this topic MENINGOCOCCAL (MENACTRA/MENVEO) Aged Out No longer eligible based on patient's age to complete this topic documented as of this encounter Medical Devices Implanted Type Area Telephone Worker Device Identifier Shelf Expiration Date Model / Serial / Lot Cath Thermodilution 6fr - [id number] Implanted:Qty: 1 on 01/24/2023 by Wilbur Rivera MD at [facility] [employer] [id number] 10/15/2024 [id number] / / [id number] Clip Delivery Sytem G4 Xt - [id number] Implanted:Qty: 1 on 03/10/2023 at [facility] [employer] [id number] 04/15/2023 [id number] / / [id number] Clip Delivery Sytem G4 Xtw - [id number] Implanted:Qty: 1 on 03/10/2023 at [facility] [id number] 12/06/2023 [id number] / / [id number] Mirtaclip G4 - [id number] Implanted:Qty: 1 on 03/10/2023 at [facility] 11/19/2023 [id number] / / [id number] Device Watchman Flx 31mm - [id number] Implanted:Qty: 1 on 07/31/2023 by Wilbur Rivera MD at [facility] [employer] : INTRV CARD [id number] 12/02/2025 [id number] / [id number] documented as of this encounter Visit Diagnoses Diagnosis Paroxysmal atrial fibrillation (HCC)- Primary Atrial fibrillation documented in this encounter Advance Directives Documents on File Type Date Recorded 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 No * No Code Date Activated [...] Agents on File Name Relationship Healthcare Agent Lorenzosc josiah Communication [facility] [place] Adult Child Health Care Agen t (per Health Care Power of Instructional Specialist document) Care Teams Weather Forcaster Relationship Specialty Start Date End Date Florentin Calvo DO [address] [place] [id number] PCP - General Internal Medicine 02/06/24 documented as of this encounter
--- OUTSIDE RECORDS SUMMARY | 2024-05-14 04:33 | External Medical Summary | Summary of Care ---
Author Name Unknown Organization [facility] Address [address] [place] [address] Phone [phone] Care Team Providers Care Wrapping Machine Helper Name Role Phone Florentin Calvo DO Primary Care Provider Encounter Details Date Type Department Care Team (Late st Contact Info) Description 05/06/2024 4:00 PM EDT Home Visit [facility] [address] [facility] [place] [address] Nikolay Wu, AISHA [address] [facility] [place] [address] Allergies Active Allergy Reactions Criticality Noted Date [...] Refills Start Date End Date Status The Interest NetworkTouch Verio w/Device KitIndications:Type 2 diabetes mellitus with [...] Oral Tablet (Lipitor)Indications :PVD (peripheral vascular disease) ([facility]),Type 2 diabetes mellitus with stage 3a chronic kidney disease and hypertension ([facility]) TAKE ONE TABLET BY MOUTH EVERY DAY DIRECTED 100 Tablet 3 03/31/2023 Active Ipratropium Kendall 0.03 % Nasal Solution (Atrovent)Indication s:Chronic rhinitis Administer 2 Sprays into nostril in the morning and 2 Sprays before bedtime. 90 mL 3 04/01/2023 Active Allopurinol 300 MG Oral Tablet (Zyloprim) Take 1 Tablet by mouth at bedtime. 90 Tablet 3 05/16/2023 Active Tiotropium Kendall-Olodaterol 2.5-2.5 MCG/ACT Inhalation Aerosol Solution (Stiolto Respimat) [...] (Demadex)Indications :Chronic diastolic CHF (congestive heart failure) ([facility]) Take 2 Tablets by mouth in the morning. 200 Tablet 3 02/24/2024 Active Naloxone HCl 4 MG/0.1ML NA LIQD FOR CAREGIVERIndications :Compression fracture of T12 vertebra, initial encounter ([facility]) Administer 1 spray into 1 nostril for suspected opioid overdose. Seek immediate medical attention. 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 Assessment & Plan: Now just using [...] MCG/0.3 mL, 12 YRS AND ABOVE, IM (Hudl-Comirnat) 06/09/2023 Covid-19, Mrna, Lnp-s, Pf, B ivalent, 30 Mcg, IM, 12 yrs and above (Pfizer) 09/10/2022 HEP A - Hepatitis A (Adult > 18 yrs) 03/15/2004, 07/29/2003 Pneumococcal Conjugate Vacc, 13 Valent (Prevnar) 09/21/2015 Pneumococcal Conjugate Vacci ne, 20-valent ([id number]) 05/05/2024 Pneumococcal Polysaccharide PPV23 (Pneumovax) 05/25/2012,07/25/2007 RSV [...] Reading Time Taken Comments Blood Pressure 122/60 05/06/2024 1:41 PM EDT Pulse 68 05/06/2024 1:41 PM EDT Temperature - - Respiratory Rate 18 05/06/2024 1:41 PM EDT Oxygen Saturation 94% 05/06/2024 1:41 PM EDT Inhaled Oxygen Concentration - [...] of this encounter Progress Notes * Nikolay Wu, AISHA - 05/06/2024 5:17 PM EDT Current Concerns: Situation: Pt seen today by [facility] sort manager for routine follow-up visit. Background: PMH includes: CHF pEF 60-65%, CAD/PVD, Afib on Eliquis, post-Watchman device, Mitral valve clip, HTN, COPD, Anermia, GERD Assessment: Pt had fall last 04/29 with subsequent L knee pain Pt has Xrays, no fractures Pt reports pain to L knee as 5/10 today Pt is taking tylenol, has Oxy 5 mg prescription if needed Daughter manages medications, reports no changes to meds Pt continues to have chronic back pain from previous fall with fracture T12 Cellulitis to R great toe- taking Doxycycline 100 mg BID x 7 days- sees Podiatry tomorrow VS WNL Heart R&R regular Lungs clear bilaterally Trace edema to BLE Per pt report: Voiding without difficulty Bowels WNL Appetite good Taking fluids well Pt daughter reports pt was given a watch PERS unit from [facility] and it is not functioning properly and would like watch to be fixed This RN did not order watch, this RN unable to find documentation of who did order watch, or where specifically watch came from Pt daughter reports that she will take care of issue as it needs fixed immediately due to pt receiving multiple calls a day from company stating device is not charged Pt follows very closely with [facility], Dr Calvo, also currently has HH PT, OT Pt also follows with multiple specialties- Cardio, Neurology, Podiatry, Nephro, Vascular, Ophthalmology, Gastroenterology, Hematology/Oncology, Pulmonary Pt and pt son and daughter overwhelmed with amount of appointments, phone calls, scheduling of appts currently occurring Daughter reports she and son have been cancelling some appointments if believed to be redundant- for instance [facility] visit cancelled yesterday due to pt seeing PCP same day and then RNCM today Voiced understanding and offered listening, support Discussed whether [facility] was wanted, pt daughter reported she would like someone to come once monthly to take pt VS and check pt over but more than that seems unneeded at this time Physical Exam: Physical Exam Cardiovascular: Rate and Rhythm: Normal rate and regular rhythm. Pulmonary: Effort: Pulmonary effort is normal. Breath sounds: Normal breath sounds. Abdominal: General: Bowel sounds are normal. Palpations: Abdomen is soft. Musculoskeletal: General: Signs of injury (L knee) present. Normal range of motion. Skin: General: Skin is warm and dry. Capillary Refill: Capillary refill takes 2 to 3 seconds. Neurological: General: No focal deficit present. Mental Status: She is alert. Mental status is at baseline. Psychiatric: Mood and Affect: Mood normal. Behavior: Behavior normal. Review of Systems: Review of Systems Constitutional: Positive for activity change and fatigue. HENT: Negative. Respiratory: Negative for cough, chest tightness and shortness of breath. Cardiovascular: Positive for leg swelling (Trace to BLE). Gastrointestinal: Negative. Genitourinary: Negative. Musculoskeletal: Positive for arthralgias, back pain and gait problem. Skin: R great toe redness Psychiatric/Behavioral: Negative. Reinforced to call [facility] at [phone] with any red flags, changes in condition, or concerns. documented in this encounter Plan of Treatment Upcoming Encounters Date Type Department Care Team (Late st Contact Info) Description 05/18/2024 1:20 PM EDT Office Visit Neurology [facility] [address] [facility] [place] [address] Carmenza Colon PA-C [address] [facility] [place] [address] 06/02/2024 9:30 AM EDT Office Visit Cardiology, [facility] [address] [facility] [place] [address] Abigail Goncalves PA-C [address] [facility] [place] [address] 06/02/2024 3:20 PM EDT Office Visit Family Practice [address] [place] [address] [address] [place] [address] Florentin Calvo, DO [address] [place] [address] 06/03/2024 2:15 PM EDT Office Visit Ophthalmology, [facility] [address] [facility] [place] [address] Wilbur Benavides, DO [address] [place] [address] 06/09/2024 8:50 AM EDT Office Visit Vascular Surgery, [facility] [address] [facility] [place] [address] Aj Sahni MD [address] [place] [address] 06/24/2024 2:30 PM EDT Home Visit [facility] [address] [place] [address] Nikolay Wu, RN [address] [place] [address] 07/01/2024 2:30 PM EST Office Visit Gastroenterology, [facility] [address] [place] [address] Lacy Ronquillo CRNP 132 [facility] [place] [address] 07/09/2024 1:00 PM EST Office Visit Nephrology, [facility] [address] [facility] [place] [address] ZeMichelle chiu PA-C [address] [facility] [address] 07/27/2024 1:00 PM EST Office Visit Family Practice [address] [facility] [address] [place] [address] Florentin Calvo, [address] [place] [address] 08/09/2024 1:00 PM EST Nurse Only Ancillary [address] [place] [address] College, Nurse Annual Wellness Visit [address] [place] [address] 11/01/2024 12:00 PM EDT Office Visit Hematology/Oncology [facility] [address] [facility], [place] [id number] Nereyda Metz CRNP [address] [facility] [id number] Scheduled Procedures Name Priority Associated Diagnoses Date/Ti me COLONOSCOPY FLEXIBLE PROXIMA L DIAGNOSTIC Recall Diarrhea, unspecified type History of diverticulitis ESOPHAGOGASTRODUODENOSCOPY ( EGD), FLEXIBLE, TRANSORAL, DIAGNOSTIC Recall Diarrhea, unspecified type History of diverticulitis Health Maintenance Due Date Last Done Comments [...] Additional history exists CKD PHOS USE SMARTSET 71307 04/27/2025 09/0 10/2023, 08/19/2023, 05/01/2022, Additional history exists TSH 04/27/2025 04/27/2024, 02/23, 03/15/2024, Additional history exists CKD HGB USE SMARTSET 63853 05/01/202505/01, 05/01/2024, 04/27/2024, Additional history exists DXA [...] this encounter Medical Devices Implanted Type Area Video Game Designer Device Identifier Shelf Expiration Date Model / Serial / Lot Cath Thermodilution 6fr - [id number] Implanted:Qty: 1 on 01/24/2023 by Wilbur Rivera MD at [facility] [place] [employer] [id number] 10/15/2024 [id number] / / [id number] Clip Delivery Sytem G4 Xt - [id number] Implanted:Qty: 1 on 03/10/2023 at [facility] [place] [employer] [id number] 04/15/2023 [id number] / / [id number] Clip Delivery Sytem G4 Xtw - [id number] Implanted:Qty: 1 on 03/10/2023 at [facility] [place] [employer] [id number] 12/06/2023 [id number] / / [id number] Mirtaclip G4 - [id number] Implanted:Qty: 1 on 03/10/2023 at [facility] [place] [employer] 11/19/2023 [id number] / / [id number] Device Watchman Flx 31mm - [id number] Implanted:Qty: 1 on 07/31/2023 by Wilbur Rivera MD at [facility] [place] [employer] : INTRV CARD [id number] 12/02/2025 [id number] documented as of this encounter Advance Directives Documents on File Type Date Recorded 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 No * No Code Date Activated Date [...] Agents on File Name Relationship Healthcare Agent [facility] p Communication [facility] Adult Child Health Care Agen t (per Health Care Power of Associate Editor document) Care Teams Wrapping Machine Helper Relationship Specialty Start Date End Date Florentin Calvo DO [address] [facility] [place] [address] PCP - General Internal Medicine 02/06/24 documented as of this encounter
--- OUTSIDE RECORDS SUMMARY | 2024-05-14 04:33 | External Medical Summary ---
Author Name Unknown Address Unknown Organization [id number]:[facility] [address] [place] [address] Laboratory Report Ordering Provider Test Date Status ANTONIO EDMONDS 05/13/2024 12:49:15 Final Observation Date Value Abnormality Reference (Units ) Status WBC, Total 05/13/2024 12:49:15 12.98 Above high normal 4 .00-10.80 (K/uL) Final RBC 05/13/2024 12:49:15 3.95 3.85-5.15 (M/uL) Final Hemoglobin 05/13/2024 12:49:15 12.0 12.0-15.3 (g/dL) Final HCT 05/13/2024 12:49:15 35.9 Below low normal 36. 0-45.2 (%) Final MCV 05/13/2024 12:49:15 90.9 81.5-97.5 (fL) Final MCH 05/13/2024 12:49:15 30.4 27.0-34.0 (pg) Final MCHC 05/13/2024 12:49:15 33.4 32.0-36.0 (g/dL) Final RDW 05/13/2024 12:49:15 16.3 11.5-15.5 (%) Final Platelets 05/13/2024 12:49:15 241 140-400 (K /uL) Final MPV 05/13/2024 12:49:15 10.4 6.6-11.1 ( fL) Final Performing Location [facility] [address] [place] [address]
--- OUTSIDE RECORDS SUMMARY | 2024-05-14 04:33 | External Medical Summary | Summary of Care ---
Author Name Unknown Organization [facility] Address [address] [place] [address] Phone [phone] Care Team Providers Care Grain Wafer Machine Operator Name Role Phone Florentin Calvo DO Primary Care Provider [phone] Reason for Referral * Evaluate & Treat - Unlimited Visits (Within 10 days (routine)) - Authorized Specialty Diagnoses / Procedures Referred By Danny mcdowell Referred To Contact Podiatry Diagnoses Cellulitis of right toe Florentin Calvo DO [address] [place] [address] Referral ID Status Reason Start Date Expiration Date Visits Requested Visits Authorized [id number] Authorized Specialty Services Required 05/05/[phone] Question Answer Referral Priority Within 10 days (routine) Where should this appointment be scheduled? [facility] Which condition are you referring this patient for? 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 External Comments Diabetic retinopathy follow-up---DR Benavides, Patient is scheduled. Reason for Visit * Reason Comments Follow Up Encounter Details Date Type Department Care Team (Latest Contact Info) Description 05/05/2024 11:40 AM EDT Office Visit Family Practice [address] [place] [address] Florentin Calvo, [address] [place] [address] Cellulitis of right toe*; Acute pain of left knee; 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 ([facility]); Paroxysmal atrial fibrillation ([facility]); PVD (peripheral vascular disease) ([facility]); Chronic diastolic CHF (congestive heart failure) ([facility]); Type 2 diabetes mellitus with stage 3b chronic kidney disease, without long-term current use of insulin ([facility]); 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 claudication; Diarrhea, unspecified type; Closed wedge compression fracture of T12 vertebra, sequela; Acquired hypothyroidism; Current moderate episode of major depressive disorder without prior episode (HCC); Gastro-esophageal reflux disease without esophagitis; Pure hypercholesterolemia; Cardiac pacemaker in situ; History of endometrial cancer; Atherosclerosis of [place] coronary artery of [place] heart without angina pectoris; S/P mitral valve clip implantation; Severe tricuspid regurgitation; Presence of Watchman left atrial appendage closure device; Memory loss; Need for vaccination against Streptococcus pneumoniae Allergies Active Allergy Reactions Criticality Noted Date [...] DIRECTED 100 Tablet 3 3 Active Ipratropium [place] 0.03 % Nasal Solution (Atrovent)Indicati ons:Chronic rhinitis Administer 2 Sprays into nostril in the morning and 2 Sprays before bedtime. 90 mL 3 3 Active Allopurinol 300 MG Oral Tablet (Zyloprim) Take 1 Tablet by mouth at bedtime. 90 Tablet 3 3 Active Tiotropium [place]-Olodaterol 2.5-2.5 MCG/ACT Inhalation Aerosol Solution (Stiolto Respimat) [...] (Demadex)Indicatio ns:Chronic diastolic CHF (congestive heart failure) ([facility]) Take 2 Tablets by mouth in the morning. 200 Tablet 3 4 Active Naloxone HCl 4 MG/0.1ML NA LIQD FOR CAREGIVERIndicatio ns:Compression fracture of T12 vertebra, initial encounter ([facility]) Administer 1 spray into 1 nostril for suspected opioid overdose. Seek immediate medical attention. [email or web address] I 1 Each 3 4 03/16/20 25 Active Levothyroxine Sodium 175 MCG Oral Tablet [...] as needed for Pain, Breakthrough. 4 Active fentaNYL 12 MCG/HR Transdermal Patch 72 HourIndications:Co mpression fracture of T12 vertebra, initial encounter ([facility]) Place 1 Patch over 72 hours topically on the skin every 3 days. For pain control. 10 Patch 4 Active busPIRone HCl 5 MG Oral Tablet (Buspar) Take 1 Tablet by mouth in the morning and 1 Tablet before bedtime. 60 Tablet 3 4 Active Doxycycline Hyclate 100 MG Oral CapsuleIndications :Cellulitis of right toe Take 1 Capsule by mouth in the morning and 1 Capsule before bedtime. Take for 7 days. 14 Capsule 4 Active Polyethylene Glycol 3350 17 GM/SCOOP Oral Powder (MiraLax) Take 17 g by mouth in the morning and 17 g before bedtime. Dissolve one heaping tablespoon in 8 ounces of water or juice.. 4 05/05/20 24 Discontinued Senna-Docusate Sodium 8.6-50 MG Oral TabletIndications: Drug-induced constipation Take 1 Tablet by mouth at bedtime. 100 Tablet 3 4 05/05/20 24 Discontinued Doxycycline Hyclate 100 MG Oral CapsuleIndications :Cellulitis of right toe Take 1 Capsule by mouth in the morning and 1 Capsule before bedtime. Do all this for 7 days. Take for 7 days. 14 Capsule 4 05/05/20 24 Discontinued(Re fill) documented as of this encounter (statuses as of 05/06/2024) Active Problems Problem Noted Date Diagnosed Date Memory loss 05/05/2024 Closed wedge compression fracture of T12 vertebr a 03/12/2024 Last Assessment & Plan: Increased oxy from 2.5mg to 5mg [id number] prn Ortho spine ref, ?kyphoplasty Constipation 03/12/2024 [...] Obstructive sleep apnea of adult 09/09/2014 Overview: [employer]ER Last Assessment & Plan: Now just [...] MCG/0.3 mL, 12 YRS AND ABOVE, IM (FlyData-Comirnat) 06/09/2023 Covid-19, Mrna, Lnp-s, Pf, B ivalent, 30 Mcg, IM, 12 yrs and above (norin.tv) 09/10/2022 HEP A - Hepatitis A (Adult > 18 yrs) 03/15/2004, 07/29/2003 Pneumococcal Conjugate Vacc, 13 Valent (Prevnar) 09/21/2015 Pneumococcal Conjugate Vacci ne, 20-valent ([id number]) 05/05/2024 Pneumococcal Polysaccharide PPV23 (Pneumovax) 05/25/2012,07/25/2007 RSV [...] 09/29/2023 Does the household have a re lar source of income? (Household - for ages [...] Reading Time Taken Comments Blood Pressure 106/60 05/05/2024 11:51 AM EDT Pulse 74 05/05/2024 11:51 AM EDT Temperature 34.8 C (94.7 F) 05/05/2024 11:51 AM E DT Respiratory Rate 16 05/05/2024 11:51 AM EDT Oxygen Saturation 100% 05/05/2024 11:51 AM EDT Inhaled Oxygen Concentration - - Weight 71 kg (156 lb 8 oz) 05/05/2024 11:51 AM E DT Height 165.1 cm (5' 5") 05/05/2024 11:51 AM EDT Body Mass Index 26.04 05/05/2024 11:51 AM EDT documented in this encounter Functional Status Functional Status Response Date of Assess ment Are you deaf or do you have serious difficulty hearing? No-TONTO APACHE can hear w/ hearing aid 03/07/2023 Are [...] encounter Progress Notes * Florentin Calvo, - 05/05/2024 1:10 PM EDT SUBJECTIVE: Inga Barakat is a 83 year old female. Chief Complaint Patient presents with Follow Up HPI: Patient is an 83 year old female with a history of Atrial Fibrillation, Pacemaker Implant Severe Mitral regurgitation repaired with mitral valve clip, Watchman Atrial Appendage Closure Device, SevereTricuspid Valve Regurgitation, pulmonary HTN, CKD stage III, Lumbar Spinal Fusion, Asthma, TIA, Essential tremor, Adenocarcinoma of the Uterus treated with Hysterectomy, iron Deficiency Anemia, due to chronic GI blood loss, and Chronic Diastolic CHF that is seen for follow up. Chronic back pain is still present since falling and fracturing T12 vertebra. Strength is improving with Physical Therapy. The patient fell 6 days ago when she did not lock her walker when she stood up. Left knee pain hasbeen present since falling. Chronic shortness of breath is unchanged. No chest pain. Fatigue is unchanged. Right first toe Cellulitis is improving.The patient was brought to the visit by her son. 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 60 Capsule 5 Levalbuterol Tartrate 45 MCG/ACT Inhalation Aerosol (Xopenex HFA) Inhale by mouth 1 Puff every 4 hours as needed for Wheezing. 15 g 12 Atorvastatin Calcium 20 MG Oral Tablet (Lipitor) TAKE ONE TABLET BY MOUTH EVERY DAY DIRECTED 100Tablet 3 Ipratropium [place] 0.03 % Nasal Solution (Atrovent) Administer 2 Sprays into nostril in the morning and 2 Sprays before bedtime. 90 mL 3 Allopurinol 300 MG Oral Tablet (Zyloprim) Take 1 Tablet by mouth at bedtime. 90 Tablet 3 Tiotropium [place]-Olodaterol 2.5-2.5 MCG/ACT Inhalation Aerosol Solution (Stiolto Respimat) [...] mouth in the morning. 200 Tablet 3 Levothyroxine Sodium 175 MCG Oral Tablet (Levoxyl) Take 1 Tablet by mouth daily first thing in the morning. 90 Tablet 3 Aspirin 81 MG Oral Tablet Delayed Release Take 1 Tablet by mouth in the morning. oxyCODONE HCl 5 MG Oral Tablet (Oxy IR) Take 1 Tablet by mouth every 6 hours as needed for Pain, Breakthrough. fentaNYL 12 MCG/HR Transdermal Patch [address] 1 Patch over 72 hours topically on the skin every 3 days. For pain control. 10 Patch 0 busPIRone HCl 5 MG Oral Tablet (Buspar) Take 1 Tablet by mouth in the morning and 1 Tablet before bedtime. 60 Tablet 3 Doxycycline Hyclate 100 MG Oral Capsule Take 1 Capsule by mouth in the morning and 1 Capsule beforebedtime. Take for 7 days. 14 Capsule 0 [employer] Verio w/Device Kit Use up to 1 times a day. E11.9 1 Kit 0 [employer] Verio In Vitro Strip (Glucose Blood) Test blood sugars up to 2 times a day E11.9 200 Strip3 Naloxone HCl 4 MG/0.1ML NA LIQD FOR CAREGIVER Administer 1 spray into 1 nostril for suspected opioid overdose. Seek immediate medical attention. [email or web address] 1 Each 3 No current facility-administered medications for this visit. The patient's medication list was reviewed and updated as needed. 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 Obstructive sleep apnea of adult 09/09/2014 [employer] Pleural effusion Pulmonary arterial hypertension (HCC) Pure hypercholesterolemia 07/02/2021 PVD (peripheral vascular disease) ([facility]) 05/15/2022 Retinopathy Secondary hyperparathyroidism, renal ([facility]) 12/17/2018 Severe mitral valve regurgitation 10/30/2022 Severe tricuspid regurgitation 11/18/2022 Spinal stenosis 07/2002 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 claudication 03/24/2013 Vertigo 03/24/2013 Past Surgical History: Procedure Laterality Date COLONOSCOPY, DIAGNOSTIC (RECTUM) 10/12/2014 inflammatory tissue on bx, diverticulosis/[facility] COLONOSCOPY, DIAGNOSTIC (RECTUM) 01/05/2016 diverticulosis, multiple non-bleeding colonic angioectasias COLONOSCOPY, DIAGNOSTIC (RECTUM) 04/15/2016 angiodysplastic lesion, diverticulosis/COLONOSCOPY FLEXIBLE PROXIMAL DIAGNOSTIC performed by Izzy Stone MD at ENDOSCOPY [facility] COLONOSCOPY, DIAGNOSTIC (RECTUM) 11/10/2020 Hemorrhoids, multi polyps, diverticulosis in sigmoid colon/ biopsy show adenomatous polyp/ COLONOSCOPY FLEXIBLE PROXIMAL DIAGNOSTIC performed by Maine Stone MD at ENDOSCOPY [facility] COLONOSCOPY, DIAGNOSTIC (RECTUM) 03/11/2022 poor prep / [facility] CORONARY ANGIOGRAPHY W/RIGHT+LEFT CATH Right 01/24/2023 CORONARY ANGIOGRAPHY W/RIGHT+LEFT CATH performed by Wilbur Rivera MD at [facility] CYSTOSCOPY 06/2012 EGD, FLEXIBLE, DIAGNOSTIC 10/12/2014 normal bx, HH/[facility] EGD, FLEXIBLE, DIAGNOSTIC 01/05/2016 ESOPHAGOGASTRODUODENOSCOPY (EGD), FLEXIBLE, TRANSORAL, DIAGNOSTIC performed by Maine Stone MD at ENDOSCOPY [facility] EGD, FLEXIBLE, DIAGNOSTIC 03/11/2022 Multiple small non-bleeding fundic gland polyps / [facility] EGD, FLEXIBLE, DIAGNOSTIC 12/09/2022 mild-mod inflammation / [facility] LAPAROSCOPY TOTAL HYSTX, UTERUS 250GM OR LESS TUBE/OVARY N/A 02/22/2020 ROBOTIC LAPAROSCOPIC HYSTERECTOMY REMOVAL TUBES AND OVARIES FOR UTERUS 250GM OR LESS performed by Florentin Perez MD at OR [facility] LAPAROSCOPY; CHOLECYSTECTOMY N/A 06/06/2020 LIGATE/CUT OVIDUCT(S) MAMMOGRAM BREAST NEEDLE BIOPSY CORE LEFT Left 09/19/2015 benign NECK SPINE FUSION (CERV, BELOW C2) 1993 1999,2011 PATIENT EDU, LUMBAR LAMINECTOMY 2001 1996 too PERC CLOSURE TRANSCATH LEFT ATRIAL APPENDAGE W/ENDOCARDIAL IMPLANT Bilateral 07/31/2023 PERCUTANEOUS CLOSURE LEFT ATRIAL APPENDAGE IMPLANT performed by Wilbur Rivera MD at [facility] [place] TONSILLECTOMY PRIMARY/SECONDARY LESS THAN AGE 12 Bilateral REPAIR RUPTURED ROTATOR CUFF, ACUTE Left 08/08/2015 SINUS SURGERY PROCEDURE NEC 1994 TRANSCATH REPAIR MITRAL VALVE, INITIAL Bilateral 03/06/2023 TRANSCATHETER MITRAL VALVE REPAIR performed by Wilbur Rivera MD at [facility] Review of patient's allergies indicates: [...] Azithromycin Other (Please comment) QTC prolongation at [facility] Nickel Swelling Other reaction(s): Unknown Review [...] and hematuria. Musculoskeletal: Positive for arthralgias, back pain, gait problem and neck pain. Neurological: Positive for tremors and weakness. Negative for dizziness, syncope and headaches. Psychiatric/Behavioral: Negative for confusion, decreased concentration and sleep disturbance. OBJECTIVE: BP 106/60 | Pulse 74 | Temp (!) 34.8 C (94.7 F) | Resp 16 | Ht 1.651 m (5' 5") | Wt 71 kg (156 lb 8 oz) | SpO2 100% | BMI 26.04 kg/m | BSA 1.8 m Physical Exam [...] No edema. Left lower leg: No edema. Skin: Comments: Improving erythema and induration of right 1st toe distal phalanx. Ingrown toenail present Neurological: Mental Status: She is oriented to person, place, and time. Motor: Weakness present. Gait: Gait abnormal. Psychiatric: Mood and Affect: Mood normal. Behavior: Behavior normal. PLAN AND ASSESSMENT: Cellulitis of right toe (Primary) - renew Doxycycline Hyclate 100 MG Oral Capsule; Take 1 Capsule by mouth in the morning and 1 Capsule before bedtime. Take for 7 days. - PODIATRY REFERRAL OP Has not resolved Acute pain of left knee - XR KNEE 4 OR MORE VIEWS Images reviewed. No fractures present. 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 (HCC) - ADULT/PEDS OPHTHALMOLOGY/OPTOMETRY REFERRAL OP Continue ASA Paroxysmal atrial fibrillation (HCC) S/P Watchman Atrial Appendage Closure Device Continue Metoprolol ER PVD (peripheral vascular disease) (HCC) Chronic diastolic CHF (congestive heart failure) (HCC) Continue Torsemide Type 2 diabetes mellitus with stage 3b chronic kidney disease, without long-term current use of insulin (HCC) 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 claudication Diarrhea, unspecified type Improved Significantly Cancel Colonoscopy due to improving symptoms and multiple comorbidities Closed wedge compression fracture of T12 vertebra, sequela Continue Duragesic Patch and Oxycodone Continue PT Acquired hypothyroidism Continue Levothyroxine Current moderate episode of major depressive disorder without prior episode (HCC) Stable Continue Sertraline Gastro-esophageal reflux disease without esophagitis Continue Pantoprazole Pure hypercholesterolemia Continue Atorvastatin Cardiac pacemaker in situ History of endometrial cancer Treated with Hysterectomy Atherosclerosis of [place] coronary artery of [place] heart without angina pectoris Continue ASA and Metoprolol S/P mitral valve clip implantation Severe tricuspid regurgitation Presence of Watchman left atrial appendage closure device Memory loss MMSE was 26/30 at visit 1 week ago Patient is scheduled for Neurology evaluation Need for vaccination against Streptococcus pneumoniae - PNEUMOCOCCAL VACC, PCV20, IM ([id number]) I spent a total of 40-54 minutes (exact time 45 mins) on the date of service in preparation, delivery, and documentation of the care provided to Inga Barakat excluding any time spent in the performance of separately billed services or time spent by another provider/QHP. Follow Up: Return in about 1 month (around 06/04/2024), or if symptoms worsen or fail to improve. Florentin Calvo DO 1:10 PM 05/05/2024 documented in this encounter Nursing Notes * Hilda Awad LPN - 05/05/2024 11:48 AM EDT Had fall on , did not lock walker when she was getting up from sitting position. Fell on left knee. documented in this encounter Plan of Treatment Upcoming Encounters Date Type Department Care Team (Late st Contact Info) Description 05/06/2024 4:00 PM EDT Home Visit [facility] [address] [place] [address] Nikolay Wu, RN [address] [facility] [place] [address] 05/18/2024 1:20 PM EDT Office Visit Neurology [facility] [address] [place] [address] [address] Carmenza Colon PA-C [address] [place] [address] 06/02/2024 9:30 AM EDT Office Visit Cardiology, [facility] [address] [place] [address] Abigail Goncalves PA-C 132 [facility] [place] [address] 06/02/2024 3:20 PM EDT Office Visit Family Practice [address] [facility] [address] [facility], [place] [address] Florentin Calvo, DO [address] [place] [address] 06/03/2024 2:15 PM EDT Office Visit Ophthalmology, [facility] 132 [facility] [place] [address] Wilbur [facility]avides, DO [facility] [address] 06/09/2024 8:50 AM EDT Office Visit Vascular Surgery, [facility] [address] [facility] [place] [address] Aj Sahni MD [address] [place] [address] 06/24/2024 2:30 PM EDT Home Visit [facility] 132 [facility] [place] [address] Nikolay Wu, AISHA [address] [facility] [address] 07/01/2024 2:30 PM EST Office Visit Gastroenterology, [facility] [address] [facility] [place] [address] Lacy Ronquillo CRNP 132 [facility] [place] [address] 07/09/2024 1:00 PM EST Office Visit Nephrology, [address] [place] [address] ZeMichelle chiu PA-C 200 [facility] [place], [place] [address] 07/27/2024 1:00 PM EST Office Visit Family Practice [address] [facility] [address] [facility], [place] [address] Florentin Calvo, [address] [facility] [place] [address] 08/09/2024 1:00 PM EST Nurse Only Ancillary [address] [place] [address] College, Nurse Annual Wellness Visit [address] [place] [address] 11/01/2024 12:00 PM EDT Office Visit Hematology/Oncology [facility] 200 [facility], [place] [id number] Nereyda Metz CRNP [address] [facility] [place] [address] Pending Results Name Type Priority Associated Diagnoses Date /Time XR KNEE 4 OR MORE VIEWS Medical Imaging Routine Acute pain of left knee 05/05/2024 12:28 PM EDT Scheduled Procedures Name Priority Associated Diagnoses Date/Ti me COLONOSCOPY FLEXIBLE PROXIMA L DIAGNOSTIC Recall Diarrhea, unspecified type History of diverticulitis ESOPHAGOGASTRODUODENOSCOPY ( EGD), FLEXIBLE, TRANSORAL, DIAGNOSTIC Recall Diarrhea, unspecified type History of diverticulitis Scheduled Referrals Name Type Priority Associated Diagnoses Orde r Schedule ADULT/PEDS OPHTHALMOLOGY/OPTOM ETRY REFERRAL OP Referral Within 30 days (routine) 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 (HCC) Ordered: 05/05/2024 PODIATRY REFERRAL OP Referral Within 10 days (routine) Cellulitis of right toe Ordered: 05/05/2024 Health Maintenance Due Date Last [...] Additional history exists CKD PHOS USE SMARTSET 08412 04/27/2025 09/0 10/2023, 08/19/2023, 05/01/2022, Additional history exists TSH 04/27/2025 04/27/2024, 02/23, 03/15/2024, Additional history exists CKD HGB USE SMARTSET 60984 05/01/202505/01, 05/01/2024, 04/27/2024, Additional history exists DXA [...] this encounter Medical Devices Implanted Type Area Inspector Wire Products Device Identifier Shelf Expiration Date Model / Serial / Lot Cath Thermodilution 6fr - [id number] Implanted:Qty: 1 on 01/24/2023 by Wilbur Rivera MD at [facility] [employer] [id number] 10/15/2024 [id number] / / [id number] Clip Delivery Sytem G4 Xt - [id number] Implanted:Qty: 1 on 03/10/2023 at [facility] [employer] [id number] 04/15/2023 [id number] / / [id number] Clip Delivery Sytem G4 Xtw - [id number] Implanted:Qty: 1 on 03/10/2023 at [facility] [employer] [id number] 12/06/2023 [id number] / / [id number] Mirtaclip G4 - [id number] Implanted:Qty: 1 on 03/10/2023 at [facility] [employer] 11/19/2023 [id number] / / [id number] Device Watchman Flx 31mm - [id number] Implanted:Qty: 1 on 07/31/2023 by Wilbur Rivera MD at [facility] [employer] : INTRV CARD [id number] 12/02/2025 [id number] documented as of this encounter Visit Diagnoses Diagnosis Cellulitis of right toe- Primary Acute pain of left knee 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 (HCC) Paroxysmal atrial fibrillation (HCC) Atrial fibrillation PVD (peripheral vascular disease) (HCC) Peripheral vascular disease, unspecified Chronic diastolic CHF (congestive heart failure) (HCC) Chronic diastolic heart failure Type 2 diabetes mellitus with stage 3b chronic kidney disease, without long-term current use of insulin (HCC) 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 claudication Spinal stenosis, lumbar region, without neurogenic claudication Diarrhea, unspecified type Closed wedge compression fracture of T12 vertebra, sequela Acquired hypothyroidism Unspecified hypothyroidism Current moderate episode of major depressive disorder without prior episode (HCC) Gastro-esophageal reflux disease without esophagitis Esophageal reflux Pure hypercholesterolemia Cardiac pacemaker in situ History of endometrial cancer Personal history of malignant neoplasm of other parts of uterus Atherosclerosis of [place] coronary artery of [place] heart without angina pectoris S/P mitral valve clip implantation Severe tricuspid regurgitation Diseases of tricuspid valve Presence of Watchman left atrial appendage closure device Memory loss Need for vaccination against Streptococcus pneumoniae Need for prophylactic vaccination against streptococcus pneumoniae (pneumococcus) documented in this encounter Advance Directives Documents on File Type Date Recorded Patient Identification Printing Machine Setter Expl anation Advance Directives and Living Will 11/29/2022 ADVANCE DIRECTIVE / LIVING WILL Power of Leaf Tier 11/29/2022 POWER OF A TTORNEY Advance Directives and Living Will 10/24/2014 ADVANCE DIRECTIVE / LIVING WILL Power of Leaf Tier 10/24/2014 POWER OF A TTORNEY * Full [...] the patient have Health Care Power of Leaf Tier? No * No Code Date Activated Date [...] Agen t (per Health Care Power of Leaf Tier document) Care Teams Grain Wafer Machine Operator Relationship Specialty Start Date End Date Florentin Calvo DO [address] [place] [address] PCP - General Internal Medicine 02/06/24 documented as of this encounter
--- OUTSIDE RECORDS SUMMARY | 2024-05-14 04:33 | External Medical Summary ---
Author Name Unknown Address Unknown Organization K0G:[facility] [address] [place] [address] Laboratory Report Ordering Provider Test Date Status ANTONIO EDMONDS 05/13/2024 12:49:15 Final Observation Date Value Abnormality Reference (Units ) Status SYNC LEUKOCYTES IN BLOOD BY AUTOMATED COUNT 05/13/2024 12:49:15 12.98 Above high normal 4.00-10.80 (K/uL) Final Segs 05/13/2024 12:49:15 77.8 Above high normal 40.0-75.0 (%) Final Lymphs % 05/13/2024 12:49:15 12.7 Below low normal 18.0-42.0 (%) Final Monos 05/13/2024 12:49:15 7.3 1.0-11.0 (%) Final Eosinophils 05/13/2024 12:49:15 2.0 0.0-6.0 (%) Final Basos 05/13/2024 12:49:15 0.2 0.0-2.0 (%) Final Absolute Segs 05/13/2024 12:49:15 10.09 Above high normal 1.80-7.70 (K/uL) Final Lymphs, absolute 05/13/2024 12:49:15 1.65 1.00-4.80 (K/ul) Final Monos, Abs 05/13/2024 12:49:15 0.95 0.00-1.10 (K/uL) Final Eos, Abs 05/13/2024 12:49:15 0.26 0.00-0.70 (K/uL) Final Basos, Abs 05/13/2024 12:49:15 0.03 0.00-0.20 (K/uL) Final Performing Location [facility] [address] [place] [address]
--- OUTSIDE RECORDS SUMMARY | 2024-05-14 04:33 | External Medical Summary ---
Author Name Unknown Address Unknown Organization K0G:[facility] [address] [place] [address] Laboratory Report Ordering Provider Test Date Status ANTONIO EDMONDS 05/13/2024 12:49:15 Final Observation Date Value Abnormality Reference (Units ) Status BUN 05/13/2024 12:49:15 98 Above high normal 6-20 (mg/dL) Final Creatinine 05/13/2024 12:49:15 2.2 Above high normal 0.5-1.0 (mg/dL) Final Glomerular filtration rate/1.73 sq M.predicted [Volume Rate/Area] in Serum, Plasma or Blood by Creatinine-based formula (CKD-EPI) 05/13/2024 12:49:15 21 Below low normal >=60 (mL/min) Final eGFR is calculated based on the CKD-EPI 2020 equation. Sodium 05/13/2024 12:49:15 137 135-146 (m mol/L) Final Potassium 05/13/2024 12:49:15 4.3 3.5-5.1 (m mol/L) Final Cl 05/13/2024 12:49:15 99 98-107 (mm ol/L) Final CO2 05/13/2024 12:49:15 23 22-32 (mmo l/L) Final Anion gap 05/13/2024 12:49:15 15 7-15 (mmol /L) Final Glucose 05/13/2024 12:49:15 180 Above high normal 70 -120 (mg/dL) Final Albumin 05/13/2024 12:49:15 3.6 Below low normal 3.8 -5.0 (g/dL) Final AST (Aspartate aminotransferase) 05/13/2024 12:49:15 76 Above high normal 10-35 (U/L) Final Alk Phos 05/13/2024 12:49:15 300 Above high normal 35 -130 (U/L) Final Bilirubin, Total 05/13/2024 12:49:15 0.7 <=1 .2 (mg/dL) Final Calcium 05/13/2024 12:49:15 10.0 8.4-10.2 ( mg/dL) Final Protein 05/13/2024 12:49:15 6.9 6.0-8.3 (g /dL) Final ALT (Alanine aminotransferase) 05/13/2024 12:49:15 28 10-35 (U/L) Tarik pool Performing Location [facility] [place] [address] [facility] [address]
--- OUTSIDE RECORDS SUMMARY | 2024-05-14 04:33 | External Medical Summary | Summary of Care ---
Author Name Unknown Organization [facility] Address [address] [place] [address] Phone [phone] Care Team Providers Care Preparation Supervisor Canning Name Role Phone Florentin Calvo DO Primary Care Provider [phone] Reason for Referral * Evaluate & Treat - Unlimited Visits (Within 10 days (routine)) - Authorized Specialty Diagnoses / Procedures Referred By Danny mcdowell Referred To Contact Podiatry Diagnoses Cellulitis of right toe Florentin Calvo DO [address] [place] [address] Referral ID Status Reason Start Date Expiration Date Visits Requested Visits Authorized [id number] Authorized Specialty Services Required 05/05/2024 999 999 [...] peripheral vascular disease (HCC) Florentin Calvo DO [address] [place] [address] Referral ID Status Reason Start Date Expiration Date Visits Requested Visits Authorized [id number] Authorized Specialty Services Required 05/05/2024 1 1 [...] EDT Office Visit Family Practice [address] [place] [address] [place] [address] Florentin Calvo, [address] [place] [address] Cellulitis of right toe*; Acute pain of left knee; 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 ([facility]); Paroxysmal atrial fibrillation ([facility]); PVD (peripheral vascular disease) ([facility]); Chronic diastolic CHF (congestive heart failure) ([facility]); Type 2 diabetes mellitus with stage 3b chronic kidney disease, without long-term current use of insulin ([facility]); 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 claudication; Diarrhea, unspecified type; Closed wedge compression fracture of T12 vertebra, sequela; Acquired hypothyroidism; Current moderate episode of major depressive disorder without prior episode (HCC); Gastro-esophageal reflux disease without esophagitis; Pure hypercholesterolemia; Cardiac pacemaker in situ; History of endometrial cancer; Atherosclerosis of [place] coronary artery of [place] heart without angina pectoris; S/P mitral valve clip implantation; Severe tricuspid regurgitation; Presence of Watchman left atrial appendage closure device; Memory loss; Need for vaccination against Streptococcus pneumoniae Allergies Active Allergy Reactions Criticality Noted Date Comments Azithromycin Other (Please comment) 12/04/2021 QTC prolongation at [facility] Celecoxib Hives,Rash High 03/24/2013 Other reaction(s): Rash/Hives/Itching. [...] Oral Tablet (Lipitor)Indicatio ns:PVD (peripheral vascular disease) ([facility]),Type 2 diabetes mellitus with stage 3a chronic kidney disease and hypertension ([facility]) TAKE ONE TABLET BY MOUTH EVERY DAY DIRECTED 100 Tablet 3 3 Active Ipratropium Tenafly 0.03 % Nasal Solution (Atrovent)Indicati ons:Chronic rhinitis Administer 2 Sprays into nostril in the morning and 2 Sprays before bedtime. 90 mL 3 3 Active Allopurinol 300 MG Oral Tablet (Zyloprim) Take 1 Tablet by mouth at bedtime. 90 Tablet 3 3 Active Tiotropium Tenafly-Olodaterol 2.5-2.5 MCG/ACT Inhalation Aerosol Solution (Stiolto Respimat) [...] 24 Hour (toPROL XL)Indications:Par oxysmal atrial fibrillation ([facility]) Take 1 [...] (Demadex)Indicatio ns:Chronic diastolic CHF (congestive heart failure) ([facility]) Take 2 Tablets by mouth in the morning. 200 Tablet 3 4 Active Naloxone HCl 4 MG/0.1ML NA LIQD FOR CAREGIVERIndicatio ns:Compression fracture of T12 vertebra, initial encounter ([facility]) Administer 1 spray into 1 nostril for suspected opioid overdose. Seek immediate medical attention. [email or web address] I 1 Each 3 4 03/16/20 25 [...] mpression fracture of T12 vertebra, initial encounter ([facility] [...] Plan: Increased oxy from 2.5mg to 5mg [id number] prn Ortho spine ref, ?kyphoplasty Constipation 03/12/2024 [...] & Plan: -Recent admission to [facility], presented with numbness of tongue and slurred [...] Obstructive sleep apnea of adult 09/09/2014 Overview: SYSTEMS MECHANIC Last Assessment & Plan: Now just using [...] MCG/0.3 mL, 12 YRS AND ABOVE, IM (DossierView-Comirnat) 06/09/2023 Covid-19, Mrna, Lnp-s, Pf, B ivalent, 30 Mcg, IM, 12 yrs and above ([employer]) 09/10/2022 HEP A - Hepatitis A (Adult > 18 yrs) 03/15/2004, 07/29/2003 Pneumococcal Conjugate Vacc, 13 Valent (Prevnar) 09/21/2015 Pneumococcal Conjugate Vacci ne, 20-valent ([id number]) 05/05/2024 Pneumococcal Polysaccharide PPV23 (Pneumovax) 05/25/2012,07/25/2007 RSV [...] do you have serious difficulty hearing? [place] can hear w/ hearing aid 03/07/2023 Are [...] DM type 2, goal HbA1c < 8% ([facility]) Spinal stenosis of lumbar region without [...] of TIA (transient ischemic attack) Atherosclerosis of [place] coronary artery without angina pectoris S/P mitral [...] MOUTH EVERY DAY DIRECTED 100Tablet 3 Ipratropium Tenafly 0.03 % Nasal Solution (Atrovent) Administer 2 Sprays into nostril in the morning and 2 Sprays before bedtime. 90 mL 3 Allopurinol 300 MG Oral Tablet (Zyloprim) Take 1 Tablet by mouth at bedtime. 90 Tablet 3 Tiotropium Tenafly-Olodaterol 2.5-2.5 MCG/ACT Inhalation Aerosol Solution (Stiolto Respimat) [...] Take for 7 days. 14 Capsule 0 [email or web address] Verio w/Device Kit Use up to 1 times a day. E11.9 1 Kit 0 Sierra PhotonicsTouch Verio In Vitro Strip (Glucose Blood) Test blood sugars up to 2 times a day E11.9 200 Strip3 Naloxone HCl 4 MG/0.1ML NA LIQD FOR CAREGIVER Administer 1 spray into 1 nostril for suspected opioid overdose. Seek immediate medical attention. [email or web address]://[email or web address]/[email or web address]?[email or web address] 1 Each 3 No current facility-administered medications for this visit. The patient's medication list was reviewed and updated as needed. 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 Obstructive sleep apnea of adult 09/09/2014 SYSTEMS MECHANIC Pleural effusion Pulmonary arterial hypertension (HCC) Pure hypercholesterolemia 07/02/2021 PVD (peripheral vascular disease) ([facility]) 05/15/2022 Retinopathy Secondary hyperparathyroidism, renal ([facility]) 12/17/2018 Severe mitral valve regurgitation 10/30/2022 Severe tricuspid regurgitation 11/18/2022 Spinal stenosis 07/2002 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 claudication 03/24/2013 Vertigo 03/24/2013 Past Surgical History: Procedure Laterality Date COLONOSCOPY, DIAGNOSTIC (RECTUM) 10/12/2014 inflammatory tissue on bx, diverticulosis/[facility] COLONOSCOPY, DIAGNOSTIC (RECTUM) 01/05/2016 diverticulosis, multiple non-bleeding colonic angioectasias COLONOSCOPY, DIAGNOSTIC (RECTUM) 04/15/2016 angiodysplastic lesion, diverticulosis/COLONOSCOPY FLEXIBLE PROXIMAL DIAGNOSTIC performed by Izzy Stone MD at ENDOSCOPY [facility] COLONOSCOPY, DIAGNOSTIC (RECTUM) 11/10/2020 Hemorrhoids, multi polyps, diverticulosis in sigmoid colon/ biopsy show adenomatous polyp/ COLONOSCOPY FLEXIBLE PROXIMAL DIAGNOSTIC performed by Maine Stone MD at ENDOSCOPY [facility] COLONOSCOPY, DIAGNOSTIC (RECTUM) 03/11/2022 poor prep / [facility] CORONARY ANGIOGRAPHY W/RIGHT+LEFT CATH Right 01/24/2023 CORONARY ANGIOGRAPHY W/RIGHT+LEFT CATH performed by Wilbur Rivera MD at [facility] CYSTOSCOPY 06/2012 EGD, FLEXIBLE, DIAGNOSTIC 10/12/2014 normal bx, HH/[facility] EGD, FLEXIBLE, DIAGNOSTIC 01/05/2016 ESOPHAGOGASTRODUODENOSCOPY (EGD), FLEXIBLE, TRANSORAL, DIAGNOSTIC performed by Maine Stone MD at ENDOSCOPY [facility] EGD, FLEXIBLE, DIAGNOSTIC 03/11/2022 Multiple small non-bleeding fundic gland polyps / [facility] EGD, FLEXIBLE, DIAGNOSTIC 12/09/2022 mild-mod inflammation / [facility] LAPAROSCOPY TOTAL HYSTX, UTERUS 250GM OR LESS TUBE/OVARY N/A 02/22/2020 ROBOTIC LAPAROSCOPIC HYSTERECTOMY REMOVAL TUBES AND OVARIES FOR UTERUS 250GM OR LESS performed by Florentin Perez MD at OR [facility] LAPAROSCOPY; CHOLECYSTECTOMY N/A 06/06/2020 LIGATE/CUT OVIDUCT(S) MAMMOGRAM BREAST NEEDLE BIOPSY CORE LEFT Left 09/19/2015 benign NECK SPINE FUSION (CERV, BELOW C2) 1993 1999,2011 PATIENT EDU, LUMBAR LAMINECTOMY 2001 1996 too PERC CLOSURE TRANSCATH LEFT ATRIAL APPENDAGE W/ENDOCARDIAL IMPLANT Bilateral 07/31/2023 PERCUTANEOUS CLOSURE LEFT ATRIAL APPENDAGE IMPLANT performed by Wilbur Rivera MD at [facility] MD TONSILLECTOMY PRIMARY/SECONDARY LESS THAN AGE 12 Bilateral REPAIR RUPTURED ROTATOR CUFF, ACUTE Left 08/08/2015 SINUS SURGERY PROCEDURE NEC 1994 TRANSCATH REPAIR MITRAL VALVE, INITIAL Bilateral 03/06/2023 TRANSCATHETER MITRAL VALVE REPAIR performed by Wilbur Rivera MD at [facility] Review of patient's allergies indicates: Allergen Reactions [...] (Please comment) QTC prolongation at [facility] Nickel Swelling Other reaction(s): Unknown Review of [...] endometrial cancer Treated with Hysterectomy Atherosclerosis of [place] coronary artery of [place] heart without angina pectoris Continue ASA and Metoprolol S/P mitral valve clip implantation Severe tricuspid regurgitation Presence of Watchman left atrial appendage closure device Memory loss MMSE was 26/30 at visit 1 week ago Patient is scheduled for Neurology evaluation Need for vaccination against Streptococcus pneumoniae - PNEUMOCOCCAL VACC, PCV20, IM ([id number]) I spent a total of 40-54 minutes [...] Description 05/06/2024 4:00 PM EDT Home Visit [facility] [address] [place] [address] Nikolay Wu, RN [address] [facility] [place] [address] 05/18/2024 1:20 PM EDT Office Visit Neurology Jerri Zamora [place] [address] [place] [address] Carmenza Colon PA-C [address] [place] [address] [address] 06/02/2024 9:30 AM EDT Office Visit Cardiology, [facility] [address] [place] [address] Abigail Goncalves PA-C 132 [facility] [place] [address] 06/02/2024 3:20 PM EDT Office Visit Family Practice 65 [facility] [address] [facility] [place] [address] Florentin Calvo, DO [address] [place] [address] 06/03/2024 2:15 PM EDT Office Visit Ophthalmology, [facility] 132 [facility] [place] [address] Wilbur Benavides, DO [facility] [place] [address] 06/09/2024 8:50 AM EDT Office Visit Vascular Surgery, [facility] 132 [facility] [place] [address] Aj Sahni MD [address] [place] [address] 06/24/2024 2:30 PM EDT Home Visit [facility], [facility] 132 [facility] [place] [address] Nikolay Wu, AISHA [facility] [address] 07/01/2024 2:30 PM EST Office Visit Gastroenterology, [facility] 132 [facility] [place] [address] Lacy Ronquillo CRNP 132 [facility] [place] [address] 07/09/2024 1:00 PM EST Office Visit Nephrology, [address] [place] [address] ZeMichelle chiu PA-C 200 [facility] [place], [place] [address] 07/27/2024 1:00 PM EST Office Visit Family Practice 65 [facility] [address] [facility] [place] [address] Florentin Calvo, [address] [place] [address] 08/09/2024 1:00 PM EST Nurse Only Ancillary [address] [place] [address] College, Nurse Annual Wellness Visit [address] [place] [address] 11/01/2024 12:00 PM EDT Office Visit Hematology/Oncology [facility] 200 [facility], [place] [phone] Nereyda Metz CRNP 400 [facility] [place] [address] Pending Results Name Type Priority Associated Diagnoses [...] Additional history exists CKD PHOS USE SMARTSET 64850 04/27/2025 09/0 10/2023, 08/19/2023, 05/01/2022, Additional history exists TSH 04/27/2025 04/27/2024, 02/23, 03/15/2024, Additional history exists CKD HGB USE SMARTSET 94195 05/01/202505/01, 05/01/2024, 04/27/2024, Additional history exists DXA [...] this encounter Medical Devices Implanted Type Area Dairy Science Teacher Device Identifier Shelf Expiration Date Model / Serial / Lot Cath Thermodilution 6fr - [id number] Implanted:Qty: 1 on 01/24/2023 by Wilbur Rivera MD at [facility] [employer] [id number] 10/15/2024 [id number] / / [id number] Clip Delivery Sytem G4 Xt - [id number] Implanted:Qty: 1 on 03/10/2023 at [facility] [employer] [id number] 04/15/2023 [id number] / / [id number] Clip Delivery Sytem G4 Xtw - [id number] Implanted:Qty: 1 on 03/10/2023 at [facility] [employer] [id number] 12/06/2023 [id number] / / [id number] Mirtaclip G4 - [id number] Implanted:Qty: 1 on 03/10/2023 at [facility] [employer] 11/19/2023 [id number] / / [id number] Device Watchman Flx 31mm - [id number] Implanted:Qty: 1 on 07/31/2023 by Wilbur Rivera MD at [facility] Ambient Devices : INTRV CARD [id number] 12/02/2025 [id number] documented as of this encounter Visit Diagnoses [...] of other parts of uterus Atherosclerosis of [place] coronary artery of [place] heart without angina pectoris S/P mitral valve clip implantation Severe tricuspid regurgitation Diseases of tricuspid valve Presence of Watchman left atrial appendage closure device Memory loss Need for vaccination against Streptococcus pneumoniae Need for prophylactic vaccination against streptococcus pneumoniae (pneumococcus) documented in this encounter Advance Directives Documents on File Type Date Recorded Patient Camp Boss Expl anation Advance Directives and Living Will 11/29/2022 ADVANCE DIRECTIVE / LIVING WILL Power of Currency Exchange Specialist 11/29/2022 POWER OF A TTORNEY Advance Directives and Living Will 10/24/2014 ADVANCE DIRECTIVE / LIVING WILL Power of Currency Exchange Specialist 10/24/2014 POWER OF A TTORNEY * [...] the patient have Health Care Power of Currency Exchange Specialist? No * No Code Date Activated [...] Agen t (per Health Care Power of Currency Exchange Specialist document) Care Teams Preparation Supervisor Canning Relationship Specialty Start Date End Date Florentin Calvo DO [address] [place] [address] PCP - General Internal Medicine 02/06/24 documented as of this encounter
--- OUTSIDE RECORDS SUMMARY | 2024-05-14 04:33 | External Medical Summary | Summary of Care ---
Author Name Unknown Organization [facility] Address [address] [place] [address] Phone [phone] Care Team Providers Care Linotype Machinist Apprentice Name Role Phone Florentin Calvo DO Primary Care Provider [phone] Encounter Details Date Type Department Care Team (Late st Contact Info) Description 05/10/2024 Result Scan Unspecified Department Carmenza Swann DO [address] [place] [address] <No scans attached> Allergies Active [...] as of this encounter (statuses as of 05/10/2024) Medications Medication Sig Dispensed Refills Start Date End Date Status Diagonal View w/Device KitIndications:Type 2 diabetes mellitus with hemoglobin [...] (Lipitor)Indications :PVD (peripheral vascular disease) ([facility]),Type 2 diabetes mellitus with stage 3a chronic kidney disease and hypertension ([facility]) TAKE ONE TABLET BY MOUTH EVERY DAY DIRECTED 100 Tablet 3 03/31/2023 Active Ipratropium [place] 0.03 % Nasal Solution (Atrovent)Indication s:Chronic rhinitis Administer 2 Sprays into nostril in the morning and 2 Sprays before bedtime. 90 mL 3 04/01/2023 Active Allopurinol 300 MG Oral Tablet (Zyloprim) Take 1 Tablet by mouth at bedtime. 90 Tablet 3 05/16/2023 Active Tiotropium [place]-Olodaterol 2.5-2.5 MCG/ACT Inhalation Aerosol Solution (Stiolto Respimat) [...] heart failure) ([facility]) Take 2 Tablets by mouth in the morning. 200 Tablet 3 02/24/2024 Active Naloxone HCl 4 MG/0.1ML NA LIQD FOR CAREGIVERIndications :Compression fracture of T12 vertebra, initial encounter ([facility]) Administer 1 spray into 1 nostril for suspected opioid overdose. Seek immediate medical attention. [email or web address] 1 Each 3 03/16/2024 03/16/2025 Active Levothyroxine [...] of T12 vertebra, initial encounter ([facility]) Place 1 Patch over 72 [...] as of this encounter (statuses as of 05/10/2024) Active Problems Problem Noted Date Diagnosed Date Memory loss 05/05/2024 Closed wedge compression fracture of T12 vertebr a 03/12/2024 Last Assessment & Plan: Increased oxy from 2.5mg to 5mg [id number] prn Ortho spine ref, ?kyphoplasty Constipation 03/12/2024 [...] Obstructive sleep apnea of adult 09/09/2014 Overview: INFLATED PAD BUFFER Last Assessment & Plan: Now just using [...] as of this encounter (statuses as of 05/10/2024) Resolved Problems Problem Noted Date Diagnosed Date [...] as of this encounter (statuses as of 05/10/2024) Immunizations Name Administration Dates Next Due COVID-19 mRNA, LNP-s, No Pre serve, 2-Dose Series (Moderna) 06/23/2021,10/25/2020,09/28/2020 COVID-19, LNP-s, No Preserve , Larry-sucrose, Ages 12+ (Assmbly) 04/09/2022 COVID-19, MRNA-LNP, 23-24, P F, 30 MCG/0.3 mL, 12 YRS AND ABOVE, IM (Suvaco-Comirnaty) 06/09/2023 Covid-19, Mrna, Lnp-s, Pf, B ivalent, 30 Mcg, IM, 12 yrs and above (Assmbly) 09/10/2022 HEP A - Hepatitis A (Adult > 18 yrs) 03/15/2004, 07/29/2003 Pneumococcal Conjugate Vacc, 13 Valent (Prevnar) 09/21/2015 Pneumococcal Conjugate Vacci ne, 20-valent (Btriiei07) 05/05/2024 Pneumococcal Polysaccharide PPV23 (Pneumovax) 05/25/2012,07/25/2007 RSV [...] or do you have serious difficulty hearing? [place] can hear w/ hearing aid 03/07/2023 Are [...] 05/18/2024 1:20 PM EDT Office Visit Neurology [facility] [place] [place] [address] Carmenza Colon PA-C 200 [facility] [place] [address] 06/02/2024 9:30 AM EDT Office Visit Cardiology, [facility] 132 [facility] [place] [address] Abigail Goncalves PA-C 132 [facility] [place] [address] 06/02/2024 3:20 PM EDT Office Visit Family Practice [address] [place] [address] [facility] [address] Florentin Calvo, DO [facility] [address] 06/03/2024 2:15 PM EDT Office Visit Ophthalmology, [facility] 132 [facility] [place] [address] Wilbur Benavides, DO [address] [place] [address] 06/09/2024 8:50 AM EDT Office Visit Vascular Surgery, [facility] 132 [facility] [place] [address] Aj Sahni MD [address] [place] [address] 06/24/2024 2:30 PM EDT [facility], [facility] 132 [facility] [place] [address] Nikolay Wu, AISHA [facility] [place] [address] 07/01/2024 2:30 PM EST Office Visit Gastroenterology, [facility] 132 [facility] [place] [address] Lacy [facility]quillo CRNP [facility] [address] 07/09/2024 1:00 PM EST Office Visit Nephrology, [facility] 200 [facility] [place] [address] ZemaitisMichelle PA-C 200 [facility] [place] [address] 07/27/2024 1:00 PM EST Office Visit Family Practice 65 [facility] 293 [place] [address] Florentin Calvo, 293 [place] [address] 08/09/2024 1:00 PM EST Nurse Only Ancillary [facility] 293 [place] [address] College, Nurse Annual Wellness Visit [address] [place] [address] 11/01/2024 12:00 PM EDT Office Visit Hematology/Oncology [facility] [place] 200 [facility] [place] [address] Nereyda Metz CRNP [address] [place] [address] Scheduled Procedures Name Priority Associated Diagnoses Date/Ti [...] 03/15/2024, Additional history exists HbA1c 10/25/2024 04/27/2024, 04/1 12/2023, 2023, Additional history exists Albumin/Creatinine Ratio 12/08/2024 024, 02/21/2023, 05/01/2022, Additional history exists CKD PHOS USE SMARTSET 40346 04/27/2025 09/0 10/2023, 08/19/2023, 05/01/2022, Additional history exists TSH 04/27/2025 04/27/2024, 02/23, 03/15/2024, Additional history exists CKD HGB USE SMARTSET 67258 05/01/202505/01, 05/01/2024, 04/27/2024, Additional history exists DXA [...] this encounter Medical Devices Implanted Type Area Automotive Brake Adjuster Device Identifier Shelf Expiration Date Model / Serial / Lot Cath Thermodilution 6fr - [id number] Implanted:Qty: 1 on 01/24/2023 by Wilbur Rivera MD at [facility] [place] [employer] TERE [id number] 10/15/2024 [id number] / / [id number] Clip Delivery Sytem G4 Xt - [id number] Implanted:Qty: 1 on 03/10/2023 at [facility] [employer] [id number] 04/15/2023 [id number] / / [id number] Clip Delivery Sytem G4 Xtw - [id number] Implanted:Qty: 1 on 03/10/2023 at [facility] [employer] [id number] 12/06/2023 [id number] / / [id number] Mirtaclip G4 - [id number] Implanted:Qty: 1 on 03/10/2023 at [facility] [employer] 11/19/2023 [id number] / / [id number] Device Watchman Flx 31mm - [id number] Implanted:Qty: 1 on 07/31/2023 by Wilubr Rivera MD at [facility] [employer] : INTRV CARD [id number] 12/02/2025 [id number] / [id number] documented as of this encounter Procedures Procedure Name Priority Date/Time Associated Diagnosis Comments CARDIOLOGY SCANNED RESULT 05/10/2024 documented in this encounter Results * CARDIOLOGY SCANNED RESULT (05/10/2024) 05/10/2024 Carmenza Swann DO OTHER documented in this encounter Advance Directives Documents on File Type Date Recorded Patient Investigator Claims Expl anation Advance Directives and Living Will 11/29/2022 ADVANCE DIRECTIVE / LIVING WILL Power of Kettle Worker 11/29/2022 POWER OF A TTORNEY Advance Directives and Living Will 10/24/2014 ADVANCE DIRECTIVE / LIVING WILL Power of Kettle Worker 10/24/2014 POWER OF A TTORNEY * Full [...] the patient have Health Care Power of Kettle Worker? No * No Code Date Activated Date [...] Frieda mcdowell (per Health Care Power of Kettle Worker document) Care Teams Linotype Machinist Apprentice Relationship Specialty Start Date End Date Florentin Calvo DO 293 [place] [address] PCP - General Internal Medicine 02/06/24 documented as of this encounter
--- OUTSIDE RECORDS SUMMARY | 2024-05-14 04:34 | External Medical Summary | Summary of Care ---
Author Name Unknown Organization [facility] Address [address] [place] [address] Phone [phone] Care Team Providers Care Diplomatic Courier Name Role Phone Florentin Calvo DO Primary Care Provider [phone] Reason for Referral * Evaluate & Treat - Unlimited Visits (Within 10 days (routine)) - Authorized Specialty Diagnoses / Procedures Referred By Danny mcdowell Referred To Contact Podiatry Diagnoses Cellulitis of right toe Florentin Calvo DO [address] [place] [address] Referral ID Status Reason Start Date Expiration Date Visits Requested Visits Authorized [id number] Authorized Specialty Services Required 05/05/2024 999 999 [...] peripheral vascular disease (HCC) Florentin Calvo DO [address] [place] [address] Referral ID Status Reason Start Date Expiration Date Visits Requested Visits Authorized [id number] Authorized Specialty Services Required 05/05/2024 1 1 [...] EDT Office Visit Family Practice [address] [place] [address] [place] [address] Florentin Calvo, [address] [place] [address] Cellulitis of right toe*; Acute pain of left knee; 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 ([facility]); Paroxysmal atrial fibrillation ([facility]); PVD (peripheral vascular disease) ([facility]); Chronic diastolic CHF (congestive heart failure) ([facility]); Type 2 diabetes mellitus with stage 3b chronic kidney disease, without long-term current use of insulin ([facility]); 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 claudication; Diarrhea, unspecified type; Closed wedge compression fracture of T12 vertebra, sequela; Acquired hypothyroidism; Current moderate episode of major depressive disorder without prior episode (HCC); Gastro-esophageal reflux disease without esophagitis; Pure hypercholesterolemia; Cardiac pacemaker in situ; History of endometrial cancer; Atherosclerosis of ak chin coronary artery of [...] as of this encounter (statuses as of 05/05/2024) Medications Medication Sig Dispensed Refills Start Date [...] (Lipitor)Indicatio ns:PVD (peripheral vascular disease) ([facility]),Type 2 diabetes mellitus with stage 3a chronic kidney disease and hypertension ([facility]) TAKE ONE TABLET BY MOUTH EVERY DAY DIRECTED 100 Tablet 3 3 Active Ipratropium [place] 0.03 % Nasal Solution (Atrovent)Indicati ons:Chronic rhinitis Administer 2 Sprays into nostril in the morning and 2 Sprays before bedtime. 90 mL 3 3 Active Allopurinol 300 MG Oral Tablet (Zyloprim) Take 1 Tablet by mouth at bedtime. 90 Tablet 3 3 Active Tiotropium [place]-Olodaterol 2.5-2.5 MCG/ACT Inhalation Aerosol Solution (Stiolto Respimat) [...] 24 Hour (toPROL XL)Indications:Par oxysmal atrial fibrillation ([facility]) Take 1 Tablet by mouth [...] (Demadex)Indicatio ns:Chronic diastolic CHF (congestive heart failure) ([facility]) Take 2 Tablets by mouth in the morning. 200 Tablet 3 4 Active Naloxone HCl 4 MG/0.1ML NA LIQD FOR CAREGIVERIndicatio ns:Compression fracture of T12 vertebra, initial encounter ([facility]) Administer 1 spray into 1 nostril for suspected opioid overdose. Seek immediate medical attention. 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 Last Assessment & Plan: Now just [...] as of this encounter (statuses as of 05/05/2024) Resolved Problems Problem Noted Date Diagnosed Date [...] as of this encounter (statuses as of 05/05/2024) Immunizations Name Administration Dates Next Due COVID-19 mRNA, LNP-s, No Pre serve, 2-Dose Series (Moderna) 06/23/2021,10/25/2020,09/28/2020 COVID-19, LNP-s, No Preserve , Larry-sucrose, Ages 12+ (Pfizer) 04/09/2022 COVID-19, MRNA-LNP, 23-24, P F, 30 MCG/0.3 mL, 12 YRS AND ABOVE, IM (jiffstore-Comirnat) 06/09/2023 Covid-19, Mrna, Lnp-s, Pf, B ivalent, 30 Mcg, IM, 12 yrs and above ([employer] Publishing) 09/10/2022 HEP A - Hepatitis A (Adult > 18 yrs) 03/15/2004, 07/29/2003 Pneumococcal Conjugate Vacc, 13 Valent (Prevnar) 09/21/2015 Pneumococcal Conjugate Vacci ne, 20-valent (Ofakcqa25) 05/05/2024 Pneumococcal Polysaccharide PPV23 (Pneumovax) 05/25/2012,07/25/2007 RSV [...] DM type 2, goal HbA1c < 8% ([facility]) Spinal stenosis of lumbar region [...] of TIA (transient ischemic attack) Atherosclerosis of ak chin coronary artery without angina pectoris S/P mitral [...] MOUTH EVERY DAY DIRECTED 100Tablet 3 Ipratropium [place] 0.03 % Nasal Solution (Atrovent) Administer 2 Sprays into nostril in the morning and 2 Sprays before bedtime. 90 mL 3 Allopurinol 300 MG Oral Tablet (Zyloprim) Take 1 Tablet by mouth at bedtime. 90 Tablet 3 Tiotropium [place]-Olodaterol 2.5-2.5 MCG/ACT Inhalation Aerosol Solution (Stiolto Respimat) [...] Take for 7 days. 14 Capsule 0 [place] Verio w/Device Kit Use up to 1 times a day. E11.9 1 Kit 0 TripteaseTouch Verio In Vitro Strip (Glucose Blood) Test blood sugars up to 2 times a day E11.9 200 Strip3 Naloxone HCl 4 MG/0.1ML NA LIQD FOR CAREGIVER Administer 1 spray into 1 nostril for suspected opioid overdose. Seek immediate medical attention. [email or web address] 1 Each 3 No current facility-administered medications for this visit. The patient's medication list was reviewed and updated as needed. 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 Obstructive sleep apnea of adult 09/09/2014 GENERAL ACCOUNTING MANAGER Pleural effusion Pulmonary arterial hypertension (HCC) Pure hypercholesterolemia 07/02/2021 PVD (peripheral vascular disease) ([facility]) 05/15/2022 Retinopathy Secondary hyperparathyroidism, renal ([facility]) 12/17/2018 Severe mitral valve regurgitation 10/30/2022 Severe tricuspid regurgitation 11/18/2022 Spinal stenosis 07/2002 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 claudication 03/24/2013 Vertigo 03/24/2013 Past Surgical History: Procedure Laterality Date COLONOSCOPY, DIAGNOSTIC (RECTUM) 10/12/2014 inflammatory tissue on bx, diverticulosis/[facility] COLONOSCOPY, DIAGNOSTIC (RECTUM) 01/05/2016 diverticulosis, multiple non-bleeding colonic angioectasias COLONOSCOPY, DIAGNOSTIC (RECTUM) 04/15/2016 angiodysplastic lesion, diverticulosis/COLONOSCOPY FLEXIBLE PROXIMAL DIAGNOSTIC performed by Izzy Stone MD at ENDOSCOPY [facility] COLONOSCOPY, DIAGNOSTIC (RECTUM) 11/10/2020 Hemorrhoids, multi polyps, diverticulosis in sigmoid colon/ biopsy show adenomatous polyp/ COLONOSCOPY FLEXIBLE PROXIMAL DIAGNOSTIC performed by Maine Stone MD at ENDOSCOPY [facility] COLONOSCOPY, DIAGNOSTIC (RECTUM) 03/11/2022 poor prep / [facility] CORONARY ANGIOGRAPHY W/RIGHT+LEFT CATH Right 01/24/2023 CORONARY ANGIOGRAPHY W/RIGHT+LEFT CATH performed by Wilbur Rivera MD at [facility] CYSTOSCOPY 06/2012 EGD, FLEXIBLE, DIAGNOSTIC 10/12/2014 normal bx, HH/[facility] EGD, FLEXIBLE, DIAGNOSTIC 01/05/2016 ESOPHAGOGASTRODUODENOSCOPY (EGD), FLEXIBLE, TRANSORAL, DIAGNOSTIC performed by Maine Stone MD at ENDOSCOPY [facility] EGD, FLEXIBLE, DIAGNOSTIC 03/11/2022 Multiple small non-bleeding fundic gland polyps / [facility] EGD, FLEXIBLE, DIAGNOSTIC 12/09/2022 mild-mod inflammation / [facility] LAPAROSCOPY TOTAL HYSTX, UTERUS 250GM OR LESS [...] [facility] [place] TONSILLECTOMY PRIMARY/SECONDARY LESS THAN AGE 12 Bilateral [...] Other (Please comment) QTC prolongation at [facility] Nickel Swelling Other reaction(s): Unknown Review of [...] endometrial cancer Treated with Hysterectomy Atherosclerosis of ak chin coronary artery of ak chin heart without angina pectoris Continue ASA and Metoprolol S/P mitral valve clip implantation Severe tricuspid regurgitation Presence of Watchman left atrial appendage closure device Memory loss MMSE was 26/30 at visit 1 week ago Patient is scheduled for Neurology evaluation Need for vaccination against Streptococcus pneumoniae - PNEUMOCOCCAL VACC, PCV20, IM ([id number]) I spent a total of 40-54 minutes [...] Team (Late st Contact Info) Description 05/06/2024 10:00 AM EDT Scheduled Telephone [facility] [address] [place] [address] Coordinator, [facility] [address] [place] [address] 05/06/2024 4:00 PM EDT [facility] Visit [facility] [place], [facility] [address] [place] [address] Nikolay Wu, AISHA [address] [place] [address] 05/18/2024 1:20 PM EDT Office Visit Neurology Jerri [facility] [address] [place] [address] Carmenza Colon PA-C 200 [facility] [place], [place] [address] 06/02/2024 3:20 PM EDT Office Visit Family [facility] 65 [facility] 293 [place] [address] Florentin Calvo, DO 293 [facility] [place] [address] 06/03/2024 2:15 PM EDT Office Visit Ophthalmology, [facility] 132 [place] [address] Wilbur Benavides, DO [facility] [place] [address] 06/09/2024 8:50 AM EDT Office Visit Vascular Surgery, [facility] 132 [place] [address] Aj Sahni MD [address] [place] [address] 07/01/2024 2:30 PM EST Office Visit Gastroenterology, [facility] [place] [address] Lacy Ronquillo CRNP 132 [place] [address] 07/09/2024 1:00 PM EST Office Visit Nephrology, [facility] [address] [place], [place] [address] ZemaMichelle churchill PA-C [address] [place] [address] 07/27/2024 1:00 PM EST Office Visit Family [facility] 65 [facility] 293 [place] [address] Florentin Calvo, DO 293 [facility] [place] [address] 08/09/2024 1:00 PM EST Nurse Only Ancillary 65 [facility] 293 [place] [address] College, Nurse Annual Wellness Visit [address] [place] [address] 11/01/2024 12:00 PM EDT Office Visit Hematology/Oncology [facility] 200 [facility], [place] [phone] Nereyda Metz CRNP 400 [facility] [place] [address] Pending Results Name Type Priority Associated Diagnoses [...] 03/15/2024, Additional history exists HbA1c 10/25/2024 04/27/2024, 11/23, 2023, Additional history exists Albumin/Creatinine Ratio 12/08/2024 024, 02/21/2023, 05/01/2022, Additional history exists CKD PHOS USE SMARTSET 41856 04/27/2025 09/0 10/2023, 08/19/2023, 05/01/2022, Additional history exists TSH 04/27/2025 04/27/2024, 02/23, 03/15/2024, Additional history exists CKD HGB USE SMARTSET 38226 05/01/202505/01, 05/01/2024, 04/27/2024, Additional history exists DXA [...] this encounter Medical Devices Implanted Type Area Program Clerk Device Identifier Shelf Expiration Date Model / Serial / Lot Cath Thermodilution 6fr - [id number] Implanted:Qty: 1 on 01/24/2023 by Wilbur Rivera MD at [facility] [employer] TERE [id number] 10/15/2024 [id number] / / [id number] Clip Delivery Sytem G4 Xt - [id number] Implanted:Qty: 1 on 03/10/2023 at [facility] [employer] [id number] 04/15/2023 [id number] / / [id number] Clip Delivery Sytem G4 Xtw - [id number] Implanted:Qty: 1 on 03/10/2023 at [facility] [employer] [id number] 12/06/2023 [id number] TW / / [id number] Mirtaclip G4 - [id number] Implanted:Qty: 1 on 03/10/2023 at [facility] [employer] 11/19/2023 [id number] / / [id number] Device Watchman Flx 31mm - [id number] Implanted:Qty: 1 on 07/31/2023 by Wilbur Rivera MD at [facility] zoidu : INTRV CARD [id number] 12/02/2025 [id number] documented as of this encounter Visit Diagnoses Diagnosis Cellulitis of right toe- Primary Acute pain of left knee 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 ([facility]) Paroxysmal atrial fibrillation ([facility]) Atrial fibrillation PVD (peripheral vascular disease) ([facility]) Peripheral vascular disease, unspecified Chronic diastolic CHF (congestive heart failure) ([facility]) Chronic diastolic heart failure Type 2 diabetes mellitus with stage 3b chronic kidney disease, without long-term current use of insulin ([facility]) 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 claudication Spinal stenosis, lumbar region, without neurogenic claudication Diarrhea, unspecified type Closed wedge compression fracture of T12 vertebra, sequela Acquired hypothyroidism Unspecified hypothyroidism Current moderate episode of major depressive disorder without prior episode ([facility]) Gastro-esophageal reflux disease without esophagitis Esophageal reflux Pure hypercholesterolemia Cardiac pacemaker in situ History of endometrial cancer Personal history of malignant neoplasm of other parts of uterus Atherosclerosis of ak chin coronary artery of ak chin heart without angina pectoris S/P mitral valve clip implantation Severe tricuspid regurgitation Diseases of tricuspid valve Presence of Watchman left atrial appendage closure device Memory loss Need for vaccination against Streptococcus pneumoniae Need for prophylactic vaccination against streptococcus pneumoniae (pneumococcus) documented in this encounter Advance Directives Documents on File Type Date Recorded Patient Service Inspector Expl anation Advance Directives and Living Will 11/29/2022 ADVANCE DIRECTIVE / LIVING WILL Power of Sales Effectiveness Manager 11/29/2022 POWER OF A TTORNEY Advance Directives and Living Will 10/24/2014 ADVANCE DIRECTIVE / LIVING WILL Power of Sales Effectiveness Manager 10/24/2014 POWER OF A TTORNEY * [...] patient have Health Care Power of Sales Effectiveness Manager? No * No Code Date Activated [...] on File Name Relationship Healthcare Agent [facility] p Communication Bright [place] Adult Child Health Care Agen t (per Health Care Power of Sales Effectiveness Manager document) Care Teams Diplomatic Courier Relationship Specialty Start Date End Date Florentin Calvo DO [address] [place] [address] PCP - General Internal Medicine 02/06/24 documented as of this encounter
--- OUTSIDE RECORDS SUMMARY | 2024-05-14 04:34 | External Medical Summary | Summary of Care ---
Author Name Unknown Organization [facility] Address [address] [place] [address] Phone [phone] Care Team Providers Care Timber Hand Name Role Phone Florentin Calvo DO Primary Care Provider [phone] Reason for Visit * Reason Comments Follow Up Encounter Details Date Type Department Care Team (Late st Contact Info) Description 05/04/2024 3:30 PM EDT Office Visit Hematology/Oncology [facility] [address] [place] [address] Nereyda Metz CRNP [address] [facility] [place] [address] Iron deficiency anemia, unspecified iron deficiency anemia type*; Chronic kidney disease, stage 3b (HCC); Thrombosis involving cardiac device, subsequent encounter Allergies Active Allergy Reactions Criticality Noted Date Comments Azithromycin Other (Please comment) 12/04/2021 QTC prolongation at [facility] Celecoxib Hives,Rash High 03/24/2013 Other reaction(s): Rash/Hives/Itching. [...] Oral Tablet (Lipitor)Indicatio ns:PVD (peripheral vascular disease) ([facility]),Type 2 diabetes mellitus with stage 3a chronic kidney disease and hypertension ([facility]) TAKE ONE TABLET BY MOUTH EVERY DAY DIRECTED 100 Tablet 3 3 Active Ipratropium Kenyon 0.03 % Nasal Solution (Atrovent)Indicati ons:Chronic rhinitis Administer 2 Sprays into nostril in the morning and 2 Sprays before bedtime. 90 mL 3 3 Active Allopurinol 300 MG Oral Tablet (Zyloprim) Take 1 Tablet by mouth at bedtime. 90 Tablet 3 3 Active Tiotropium Kenyon-Olodaterol 2.5-2.5 MCG/ACT Inhalation Aerosol Solution (Stiolto Respimat) [...] 24 Hour (toPROL XL)Indications:Par oxysmal atrial fibrillation ([facility]) Take 1 Tablet by [...] (Demadex)Indicatio ns:Chronic diastolic CHF (congestive heart failure) ([facility]) Take 2 Tablets by mouth in the morning. 200 Tablet 3 4 Active Naloxone HCl 4 MG/0.1ML NA LIQD FOR CAREGIVERIndicatio ns:Compression fracture of T12 vertebra, initial encounter ([facility]) Administer 1 spray into 1 nostril for suspected opioid overdose. Seek immediate medical attention. [email or web address] I 1 Each 3 4 03/16/20 25 [...] mpression fracture of T12 vertebra, initial encounter ([facility]) Place 1 Patch over 72 hours topically on the skin every 3 days. For pain control. 10 Patch 4 Active busPIRone HCl 5 MG Oral Tablet (Buspar) Take 1 Tablet by mouth in the morning and 1 Tablet before bedtime. 60 Tablet 3 4 Active Polyethylene Glycol 3350 [...] Plan: Increased oxy from 2.5mg to 5mg [id number] prn Ortho spine ref, ?kyphoplasty Constipation 03/12/2024 [...] valve clip implantation 03/06/2023 Atherosclerosis of 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 02/13/2023 Last Assessment & Plan: Continue statin, sotalol. ASA History of TIA (transient ischemic attack) 11/29 Last Assessment & Plan: -Recent admission to [facility], presented with numbness of tongue and slurred [...] Obstructive sleep apnea of adult 09/09/2014 Overview: INFORMATION CONSULTANT Last Assessment & Plan: Now just [...] MCG/0.3 mL, 12 YRS AND ABOVE, IM ([facility]) 06/09/2023 Covid-19, Mrna, Lnp-s, Pf, B ivalent, [...] Sign Reading Time Taken Comments Blood Pressure 107/69 05/04/2024 3:19 PM EDT Pulse 71 05/04/2024 3:19 PM EDT Temperature 36.2 C (97.1 F) 05/04/2024 3:19 PM ED T Respiratory Rate - - Oxygen Saturation 94% 05/04/2024 3:19 PM EDT Inhaled Oxygen Concentration - - Weight 71.6 kg (157 lb 14.4 oz) 05/04/2024 3:19 PM EDT Height - - Body Mass Index 26.28 04/27/2024 2:16 PM EDT documented in this encounter Functional Status Functional Status Response Date of Assess ment Are you deaf or do you have serious difficulty hearing? No-[place] can hear w/ hearing aid 03/07/2023 [...] of this encounter Progress Notes * Nereyda Metz Kelsey, JESS - 05/04/2024 3:30 PM EDT Images from the original note were not included. Hematology/Oncology Outpatient Clinic note [address] [place] [address] Name: Inga Barakat Date: 05/04/2024 CHIEF COMPLAINT: Inga Barakat is a 83 year old female here today for f/u visit today. Patient of Dr. Hasmukh Hood. From Patient chart confirmed with patient. HEMATOLOGY/ONCOLOGY DIAGNOSIS: Iron deficiency anemia CKD TREATMENT HISTORY: 1 unit of PRBC November 2022 IV Venofer 300 mg x 2 doses 14 days apart completed 11/01/22 2 units of PRBC while admitted to [facility] between 08/22/2023- 09/04/2023. She was also treated with Venofer x 5 days Ferrous sulfate 1 tablet daily ( discontinued in early October of 2023, Ferritin level has remained on the higher side, diverticulitis). Eliquis 2.5 mg BID August 2023 - March 2024 d/t thrombus on surface of watchman device CURRENT TREATMENT: Vitamin B12 100 mcg daily Folic acid 1 mg daily Aspirin 81 mg daily HISTORY OF PRESENT ILLNESS: Patient [...] on 02/24/2020 Patient continues to follow with [facility]/Onc for annual surveillance. Patient with baseline Hgb [...] with pacemaker placement. Patient was hospitalized at [facility] from 12/06/22 - 12/09/22 MitraClip placement due to severe symptomatic mitral regurgitation on 03/06/2023. HOSPITAL COURSE (focused): Patient reported to [facility] for mitral valve clip placement in the [...] Watchman implant on 07/31/2023. Patient admitted to [facility] from 08/22/2023- 09/04/2023 and [facility] 09/04/2023- 09/11/2023. Hgb was 6.5 and patient [...] of anticoagulation due to previous unclear anemia. The patient was admitted for uncontrolled back pain from T-12 compression fracture at [facility] from 03/21/24 - 03/25/24. Spine Surgery recommended conservative care. Back brace was ordered for the patient. Pain has improved and Physical Therapy is working with the patient two times a week. Apixaban was stopped and ASA started. Diarrhea has improved. Patient has constipation due to taking Oxycodone and Ferrous Sulfate. Hospitalized with COVID 19 in late March. HISTORY OF PRESENT ILLNESS: Inga Barakat is a 83 year old female with a history as outlined above. Currently here for f/u visit today. Patient's daughter and son have been taking turns staying at patient's house to help withcare for both patient and who has dementia. Patient has been falling quite a bit. In the last month she has fallen twice. Has a life link to call for help. Ambulating with a walker. Has been doing PT/OT at home. Confirms she is off Eliquis and iron as directed. Diarrhea is improved off of Eliquis. Denies black or bloody bowel movements. Is moving bowels twice a day, stool is loose. Is notcurrently taking anything for constipation or diarrhea. 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 Obstructive sleep apnea of adult 09/09/2014 INFORMATION CONSULTANT Pleural effusion Pulmonary arterial hypertension ([facility]) Pure hypercholesterolemia 07/02/2021 PVD (peripheral vascular disease) ([facility]) 05/15/2022 Retinopathy Secondary hyperparathyroidism, renal ([facility]) 12/17/2018 Severe mitral valve regurgitation 10/30/2022 Severe tricuspid regurgitation 11/18/2022 Spinal stenosis 07/2002 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 claudication 03/24/2013 Vertigo 03/24/2013 Past Surgical History: Procedure Laterality Date COLONOSCOPY, DIAGNOSTIC (RECTUM) 10/12/2014 inflammatory tissue on bx, diverticulosis/[facility] COLONOSCOPY, DIAGNOSTIC (RECTUM) 01/05/2016 diverticulosis, multiple non-bleeding [...] DIAGNOSTIC (RECTUM) 03/11/2022 poor prep / [facility] CORONARY ANGIOGRAPHY W/RIGHT+LEFT CATH Right 01/24/2023 CORONARY ANGIOGRAPHY W/RIGHT+LEFT CATH performed by Wilbur Rivera MD at [facility] CYSTOSCOPY 06/2012 EGD, FLEXIBLE, DIAGNOSTIC 10/12/2014 normal bx, HH/[facility] EGD, FLEXIBLE, DIAGNOSTIC 01/05/2016 ESOPHAGOGASTRODUODENOSCOPY (EGD), FLEXIBLE, TRANSORAL, DIAGNOSTIC performed by Maine Stone MD at ENDOSCOPY [facility] EGD, FLEXIBLE, DIAGNOSTIC 03/11/2022 Multiple small non-bleeding fundic gland polyps / [facility] EGD, FLEXIBLE, DIAGNOSTIC 12/09/2022 mild-mod inflammation / [facility] LAPAROSCOPY TOTAL HYSTX, UTERUS 250GM OR LESS TUBE/OVARY N/A 02/22/2020 ROBOTIC LAPAROSCOPIC HYSTERECTOMY REMOVAL TUBES AND OVARIES FOR UTERUS 250GM OR LESS performed by Florentin Perez MD at OR [facility] LAPAROSCOPY; CHOLECYSTECTOMY N/A 06/06/2020 LIGATE/CUT OVIDUCT(S) MAMMOGRAM BREAST NEEDLE BIOPSY CORE LEFT Left 09/19/2015 benign NECK SPINE FUSION (CERV, BELOW C2) 1993 1999,2011 PATIENT EDU, LUMBAR LAMINECTOMY 2001 1996 too PERC CLOSURE TRANSCATH LEFT ATRIAL APPENDAGE W/ENDOCARDIAL IMPLANT Bilateral 07/31/2023 PERCUTANEOUS CLOSURE LEFT ATRIAL APPENDAGE IMPLANT performed by Wilbur Rivera MD at [facility] WI TONSILLECTOMY PRIMARY/SECONDARY LESS THAN AGE 12 Bilateral REPAIR RUPTURED ROTATOR CUFF, ACUTE Left 08/08/2015 SINUS SURGERY PROCEDURE NEC 1994 TRANSCATH REPAIR MITRAL VALVE, INITIAL Bilateral 03/06/2023 TRANSCATHETER MITRAL VALVE REPAIR performed by Wilbur Rivera MD at [facility] Social History Socioeconomic History Marital status: Spouse name: Not on file Number of children: Not on file Years of education: Not on file Highest education level: Not on file Occupational History Not on file Tobacco Use Smoking status: Former Current packs/day: 0.00 Average packs/day: 1.3 packs/day for 18.0 years (22.5 ttl pk-yrs) Types: Cigarettes Start date: 12/29/1960 Quit date: 12/29/1978 Years since quittin.3 Passive exposure: Past Smokeless tobacco: Never Vaping Use Vaping status: Never Used Substance and Sexual Activity Alcohol use: No Drug use: No Sexual activity: Not Currently Partners: Male control/protection: Surgical Comment: hysterectomy Other Topics Concern Not on file Social History Narrative Not on file Social Determinants of Health Financial Resource Strain: Low Risk (09/29/2023) Financial Resource Strain Do you have any trouble paying for your medications, or do you think you might in the future? (Adult - for ages 18 years and over): No Does your family have trouble paying for medicine? (Household - for ages 0-17 years): Not on file Food Insecurity: No Food Insecurity (09/29/2023) Food Insecurity Do you need food for this week? (Adult - for ages 18 years and over): No Are you able to get enough food for your family? (Household - for ages 0-17 years): Not on file Does your family need food this week? (Household - for ages 0-17 years): Not on file Do you always have enough food for your family? (Household - for ages 0-17 years): Not on file Transportation Needs: No Transportation Needs (09/29/2023) Transportation Needs Do you have trouble getting a ride to medical visits or work? (Adult - for ages 18 years and over):Never True Does your family have a hard time getting a ride to doctors visits? (Household - for ages 0-17 years): Not on file Has lack of transportation kept you from medical appointments, meetings, work, or from getting things needed for daily living? Check all that apply. (Adult - for ages 18 years and over): Not on file Do you (or your family) have trouble finding or paying for a ride (transportation)? (Household - for ages 0-17 years): Not on file Social Connections: Socially Integrated (09/29/2023) Social Connections How often do you feel lonely or isolated from those around you? (Adult - for ages 18 years and over): Never Housing Stability: Low Risk (09/29/2023) Housing Stability Do you currently live in a detention or have no steady place to sleep at night? (Adult - for ages 18 years and over): No Do you think you are at risk of becoming homeless? (Adult - for ages 18 years and over): No Does your family worry about paying for your home or becoming homeless? (Household - for ages 0-17 years): Not on file Are you homeless or worried that you might be in the future? (Adult - for ages 18 years and over): Not on file Are you (or your family) homeless or worried that you might be in the future? (Household - for ages0-17 years): Not on file Review of patient's allergies [...] Other (Please comment) QTC prolongation at [facility] Nickel Swelling Other reaction(s): Unknown Current Outpatient Medications Medication Sig Dispense Refill [place] [employer] w/Device Kit Use up to 1 times [...] MOUTH EVERY DAY DIRECTED 100Tablet 3 Ipratropium Kenyon 0.03 % Nasal Solution (Atrovent) Administer 2 Sprays into nostril in the morning and 2 Sprays before bedtime. 90 mL 3 Allopurinol 300 MG Oral Tablet (Zyloprim) Take 1 Tablet by mouth at bedtime. 90 Tablet 3 Tiotropium Kenyon-Olodaterol 2.5-2.5 MCG/ACT Inhalation Aerosol Solution (Stiolto Respimat) [...] in 8 ounces of water or juice.. Naloxone HCl 4 MG/0.1ML NA LIQD FOR CAREGIVER Administer 1 spray into 1 nostril for suspected opioid overdose. Seek immediate medical attention. [email or web address] 1 Each 3 Levothyroxine Sodium 175 MCG Oral Tablet (Levoxyl) Take 1 Tablet by mouth daily first thing in the morning. 90 Tablet 3 Aspirin 81 MG Oral Tablet Delayed Release Take 1 Tablet by mouth in the morning. Senna-Docusate Sodium 8.6-50 MG Oral Tablet Take 1 Tablet by mouth at bedtime. 100 Tablet 3 oxyCODONE HCl 5 MG Oral Tablet (Oxy [...] in the morning and 1 Capsule beforebedtime. Do all this for 7 days. Take for 7 days. 14 Capsule 0 No current facility-administered medications for this visit. REVIEW OF SYSTEMS: See HPI - otherwise negative OBJECTIVE: Filed Vitals: 05/04/24 1519 BP: 107/69 Pulse: 71 Temp: 36.2 C (97.1 F) TempSrc: Tympanic SpO2: 94% Weight: 71.6 kg (157 lb 14.4 oz) Wt Readings from Last 5 Encounters: 05/04/24 71.6 kg (157 lb 14.4 oz) 04/27/24 71.8 kg (158 lb 4.8 oz) 04/09/24 71.9 kg (158 lb 9.6 oz) 03/30/24 72.3 kg (159 lb 8 oz) 03/15/24 72.8 kg (160 lb 6.4 oz) PHYSICAL EXAM: General Appearance: No acute distress Lungs/Thorax: Normal respiratory effort Extremities: +BLE edema Neurologic: alert and oriented x 4, ambulates with walker LABS: Results for orders placed or performed in visit on 05/01/24 IRON SCREEN, INCLUDING TIBC Result Value Ref Range Iron 55 33 - 151 ug/dL Iron Binding Capacity 256 250 - 425 ug/dL Transferrin Saturation Percent 21 15 - 55 % FERRITIN Result Value Ref Range Ferritin 601 (H) 13 - 150 ng/mL CBC Result Value Ref Range WBC 8.77 4.00 - 10.80 K/uL RBC 3.20 3.85 - 5.15 M/uL HGB 10.0 (L) 12.0 - 15.3 g/dL HCT 30.9 (L) 36.0 - 45.2 % MCV 96.6 81.5 - 97.5 fL MCH 31.3 27.0 - 34.0 pg MCHC 32.4 32.0 - 36.0 g/dL RDW 16.7 11.5 - 15.5 % PLT 228 140 - 400 K/uL MPV 11.2 6.6 - 11.1 fL DIFFERENTIAL, AUTOMATED Result Value Ref Range WBC 8.77 4.00 - 10.80 K/uL Neutrophils % 65.8 40.0 - 75.0 % Lymphocytes % 15.2 (L) 18.0 - 42.0 % Monocytes % 9.1 1.0 - 11.0 % Eosinophils % 9.8 (H) 0.0 - 6.0 % Basophils % 0.1 0.0 - 2.0 % Absolute Neutrophils 5.77 1.80 - 7.70 K/uL Absolute Lymphocytes 1.33 1.00 - 4.80 K/ul Absolute Monocytes 0.80 0.00 - 1.10 K/uL Absolute Eosinophils 0.86 (H) 0.00 - 0.70 K/uL Absolute Basophils 0.01 0.00 - 0.20 K/uL DIFFERENTIAL, TECHNOLOGIST REVIEW Result Value Ref Range nRBCs *Note: Due to a large number of results and/or encounters for the requested time period, some results have not been displayed. A complete set of results can be found in Results Review. IMPRESSION/PLAN: Iron deficiency anemia CKD Device related thrombus Underwent Watchman implant on 07/31/2023. On follow up BRENDAN 09/15/2023 she was noted to have a large thrombus on the surface of the device. Shestopped her AA and Plavix and restarted Eliquis 2.5 mg twice daily per recommendation of cardiology. Follow up BRENDAN after 6-8 weeks showing drastic improvement in the size of the thrombus. Discontinued Eliquis at recommendation of cardiology on 03/25/24. Currently taking aspirin 81 mg daily. Patient encouraged to schedule cardiology follow up. Lab results 05/01/24 reviewed: Hgb stable at 10 Ferritin stable at 601 No need for iron supplementation at this time. Will monitor CBCd, iron screen and ferritin monthly. EGD and colonoscopy scheduled for later this month. Patient is not sure if she will end up completing these which is reasonable. RTC in six months with provider with cbc/diff, cmp, iron screen and ferritin Nereyda L Isaías, MULE DEVELOPER documented in this encounter Nursing Notes * Shweta See MED ASSIST - 05/04/2024 3:20 PM EDT Patient identifed by name and birthdate Do you have any concerns about pain management for today's visit? Yes. Patient instructed to discuss pain concerns with provider during the visit today Living Will or Advance Directive for Health Care as noted on the problem list. [facility] is a way you can talk to your provider on line through e-mail. Would you like to sign up? I can activate it for you? ALREADY ACTIVE Filed Vitals: 05/04/24 1519 BP: 107/69 Pulse: 71 Temp: 36.2 C (97.1 F) TempSrc: Tympanic SpO2: 94% Weight: 71.6 kg (157 lb 14.4 oz) Patient was instructed to not get [...] 10:00 AM EDT Scheduled Telephone [facility] [address] [address] Coordinator, [facility] [address] [address] 05/06/2024 4:00 PM EDT Home Visit [facility] [address] [address] Nikolay Wu, AISHA [address] [address] 05/18/2024 1:20 PM EDT Office Visit Neurology [facility] [address] [place] [address] Carmenza Colon PA-C [address] [facility] [place] [address] 06/02/2024 3:20 PM EDT Office Visit Family [address] [place] [address] Florentin Calvo, DO [address] [place] [address] 06/03/2024 2:15 PM EDT Office Visit Ophthalmology, [facility] [address] [facility] [place] [address] Wilbur Benavides, DO [facility] [place] [address] 06/09/2024 8:50 AM EDT Office Visit Vascular Surgery, [facility] [address] [facility] [place] [address] Aj Sahni MD [address] [place] [address] 07/01/2024 2:30 PM EST Office Visit Gastroenterology, [facility] [address] [facility] [place] [address] Lacy Ronquillo CRNP [address] [facility] [place] [address] 07/09/2024 1:00 PM EST Office Visit Nephrology, [facility] [address] [place] [address] Michelle Ivy PA-C [address] [facility] [place] [address] 07/27/2024 1:00 PM EST Office Visit Family Practice [address] [place] [address] [address] [facility] [place] [address] Florentin Calvo, 293 [place] [address] 08/09/2024 1:00 PM EST Nurse Only Ancillary [address] [facility] [address] [facility] [place] [address] College, Nurse Annual Wellness Visit [address] [place] [address] 11/01/2024 12:00 PM EDT Office Visit Hematology/Oncology [facility] [address] [place] [address] Nereyda Metz CRNP [address] [facility] [place] [id number] Scheduled Orders Name Type Priority Associated Diagnoses Orde r Schedule COMPREHENSIVE METABOLIC PANEL Lab STAT Iron deficiency anemia, unspecified iron deficiency anemia type Chronic kidney disease, stage 3b (HCC) Thrombosis involving cardiac device, subsequent encounter Every 6 Months for 2 Occurrences starting 05/05/2024 until 06/04/2025 Scheduled Procedures Name Priority Associated Diagnoses Date/Ti [...] Additional history exists CKD PHOS USE SMARTSET 33781 04/27/2025 09/0 10/2023, 08/19/2023, 05/01/2022, Additional history exists TSH 04/27/2025 04/27/2024, 02/23, 03/15/2024, Additional history exists CKD HGB USE SMARTSET 28111 05/01/202505/01, 05/01/2024, 04/27/2024, Additional history exists DXA [...] encounter Medical Devices Implanted Type Area Plant Reliability Engineer Device Identifier Shelf Expiration Date Model / Serial / Lot Cath Thermodilution 6fr - [id number] Implanted:Qty: 1 on 01/24/2023 by Wilbur Rivera MD at [facility] [employer] [id number] 10/15/2024 [id number] / / [id number] Clip Delivery Sytem G4 Xt - [id number] Implanted:Qty: 1 on 03/10/2023 at [facility] [employer] [id number] 04/15/2023 [id number] / / [id number] Clip Delivery Sytem G4 Xtw - [id number] Implanted:Qty: 1 on 03/10/2023 at [facility] [employer] [id number] 12/06/2023 [id number] / / [id number] Mirtaclip G4 - [id number] Implanted:Qty: 1 on 03/10/2023 at [facility] [employer] 11/19/2023 [id number] / / [id number] Device Watchman Flx 31mm - [id number] Implanted:Qty: 1 on 07/31/2023 by Wilbur Rivera MD at [facility] [employer] : INTRV CARD [id number] 12/02/2025 [id number] / / [id number] documented as of this encounter Visit Diagnoses Diagnosis Iron deficiency anemia, unspecified iron deficiency anemia type- Primary Chronic kidney disease, stage 3b (HCC) Thrombosis involving cardiac device, subsequent encounter documented in this encounter Advance Directives Documents on File Type Date Recorded Patient Camera Operator Expl anation Advance Directives and Living Will 11/29/2022 ADVANCE DIRECTIVE / LIVING WILL Power of Mental Hygienist 11/29/2022 POWER OF A TTORNEY Advance Directives and Living Will 10/24/2014 ADVANCE DIRECTIVE / LIVING WILL Power of Mental Hygienist 10/24/2014 POWER OF A TTORNEY * Full [...] the patient have Health Care Power of Mental Hygienist? No * No Code Date Activated Date [...] Agents on File Name Relationship Healthcare Agent [facility] Communication Bright Yuval Adult Child Health Care Frieda t (per Health Care Power of Mental Hygienist document) Care Teams Timber Hand Relationship Specialty Start Date End Date Florentin Calvo DO [address] [facility] [place] [address] PCP - General Internal Medicine 02/06/24 documented as of this encounter
--- OUTSIDE RECORDS SUMMARY | 2024-05-14 04:34 | External Medical Summary | Summary of Care ---
Author Name Unknown Organization [facility] Address [address] [place] [address] Phone [phone] Care Team Providers Care Medical Dir Name Role Phone Florentin Calvo DO Primary Care Provider [phone] Reason for Visit * Reason Onset Date Comments [facility]: Maintenance 05/06/2024 Encounter Details Date Type Department Care Team (Late st Contact Info) Description 05/06/2024 10:00 AM EDT Scheduled Telephone [facility], [facility] 132 [facility] [place] [address] Coordinator, [facility] [address] [facility] [place] [address] Allergies Active Allergy Reactions Criticality Noted Date [...] Dispensed Refills Start Date End Date Status Androcial w/Device KitIndications:Type 2 diabetes mellitus with hemoglobin [...] DIRECTED 100 Tablet 3 03/31/2023 Active Ipratropium [place] 0.03 % Nasal Solution (Atrovent)Indication s:Chronic rhinitis Administer 2 Sprays into nostril in the morning and 2 Sprays before bedtime. 90 mL 3 04/01/2023 Active Allopurinol 300 MG Oral Tablet (Zyloprim) Take 1 Tablet by mouth at bedtime. 90 Tablet 3 05/16/2023 Active Tiotropium [place]-Olodaterol 2.5-2.5 MCG/ACT Inhalation Aerosol Solution (Stiolto Respimat) [...] suspected opioid overdose. Seek immediate medical attention. 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 No-NEZ PERCE can hear w/ hearing aid 03/07/2023 Are [...] encounter Miscellaneous Notes * Telephone Encounter - Becky Coleman RN - 05/06/2024 10:08 AM EDT [facility] Telephonic Nurse Follow-Up Call [facility] Subprogram: Focused Care Management (3-9 months) Follow Up Call Type: EDIS Acute issue requiring follow-up call: Other: EDIS phone call Objective: 05/05/2024 11:51 AM 05/04/2024 3:19 PM 04/27/2024 2:16 PM 04/17/2024 1:05 PM 04/09/2024 9:59 AM VITALS ACROSS ENCOUNTERS BP 106/60 107/69 118/60 102/60 116/62 Pulse 74 71 74 76 84 Weight 71 kg 71.6 kg 71.8 kg 71.9 kg BMI 26.04 26.34 26.39 BMI 26.04 kg/m2 26.28 kg/m2 26.34 kg/m2 26.39 kg/m2 Remote Patient Monitoring: NONE Oxygen Needs: NO supplemental oxygen needs identified DME Needs: NO DME needs identified Medications: No medication or dose adjustments made during acute episode Subjective: Condition Status: no concerns Current Concerns: Called and spoke with sonFlorentin. Reports to concerns today. States pt was just to see PCP yesterday and he is unsure why a call was necessary today. Per chart review, it appears pt has home visit with nurse scheduled today as well. Offered apologies and ended the call. Disposition: Issue resolved. All appropriate follow up scheduled. Future Visits Scheduled: Future Appointments-next 60 days Date/Time Provider Specialty Dept Phone 05/06/2024 4:00 PM Nikolay Wu RN [facility] [phone] 05/07/2024 9:45 AM 05/18/2024 1:20 PM (Arrive by 1:05 PM) Carmenza Colon PA-C Neurology [phone] 05/19/2024 8:00 AM (Arrive by 7:45 AM) Abigail Goncalves PA-C Cardiology [phone] 06/02/2024 3:20 PM (Arrive by 3:05 PM) Florentin Calvo DO Family Medicine [phone] 06/03/2024 2:15 PM Wilbur Benavides DO Ophthalmology [phone] 06/09/2024 8:50 AM Aj Sahni MD Vascular Surgery [phone] 07/01/2024 2:30 PM (Arrive by 2:15 PM) Lacy Ronquillo CRNP Gastroenterology [phone] 07/09/2024 1:00 PM (Arrive by 12:45 PM) Michelle Ivy PA-C Nephrology [phone] 07/27/2024 1:00 PM (Arrive by 12:45 PM) Florentin Calvo DO Family Medicine [phone] 08/09/2024 1:00 PM College, Nurse Annual Wellness Visit [address] [facility] [address] Anc[facility] [phone] 11/01/2024 12:00 PM (Arrive by 11:45 AM) Nereyda Metz CRNP Hematology Oncology [phone] Becky Coleman RN documented in this encounter Plan of Treatment Upcoming Encounters Date Type Department Care Team (Late st Contact Info) Description 05/06/2024 4:00 PM EDT Home Visit [facility], [facility] [address] [facility] [place] [address] Nikolay Wu, RN 132 [facility] [place] [address] 05/18/2024 1:20 PM EDT Office [facility] [place] [address] Carmenza Colon PA-C [address] [facility] [place] [address] 06/02/2024 9:30 AM EDT Office Visit Cardiology, [facility] [address] [facility] [place] [address] Abigail Goncalves, PAMoisesC 132 [facility] [place] [address] 06/02/2024 3:20 PM EDT Office Visit Family Practice [address] [place] [address] [address] [place] [address] Florentin Calvo, DO 293 [facility] [place] [address] 06/03/2024 2:15 PM EDT Office Visit Ophthalmology, [facility] [address] [facility] [place] [address] Wilbur Benavides, DO [facility] [place] [address] 06/09/2024 8:50 AM EDT Office Visit Vascular Surgery, [facility] [address] [facility] [place] [address] Aj Sahni MD [address] [place] [address] 07/01/2024 2:30 PM EST Office Visit Gastroenterology, [facility] [address] [place] [address] Lacy Ronquillo CRNP 132 [facility] [place] [address] 07/09/2024 1:00 PM EST Office Visit Nephrology, [facility] [address] [facility] [place] [address] Zemaitis, Michelle Amezquita PA-C 200 [facility] [place] [address] 07/27/2024 1:00 PM EST Office Visit Family Practice 65 [facility] [address] [place] [address] Florentin Calvo, 293 [facility] [place] [address] 08/09/2024 1:00 PM EST Nurse Only Ancillary 65 [facility] [address] [place] [address] College, Nurse Annual Wellness Visit [address] [place] [address] 11/01/2024 12:00 PM EDT Office Visit Hematology/Oncology [facility] [address] [facility] [place], [place] [address] Nereyda Metz CRNP [address] [place] [address] Scheduled Procedures Name Priority Associated Diagnoses Date/Ti [...] Additional history exists CKD PHOS USE SMARTSET 67305 04/27/2025 09/0 10/2023, 08/19/2023, 05/01/2022, Additional history exists TSH 04/27/2025 04/27/2024, 02/23, 03/15/2024, Additional history exists CKD HGB USE SMARTSET 48832 05/01/202505/01, 05/01/2024, 04/27/2024, Additional history exists DXA [...] this encounter Medical Devices Implanted Type Area Suede Brusher Device Identifier Shelf Expiration Date Model / Serial / Lot Cath Thermodilution 6fr - [id number] Implanted:Qty: 1 on 01/24/2023 by Wilbur Rivera MD at [facility] [place] [employer] TERE [id number] 10/15/2024 [id number] / / [id number] Clip Delivery Sytem G4 Xt - [id number] Implanted:Qty: 1 on 03/10/2023 at [facility] [employer] [id number] 04/15/2023 [id number] / / [id number] Clip Delivery Sytem G4 Xtw - [id number] Implanted:Qty: 1 on 03/10/2023 at [facility] [employer] [id number] 12/06/2023 [id number] / / [id number] Mirtaclip G4 - [id number] Implanted:Qty: 1 on 03/10/2023 at [facility] [employer] 11/19/2023 [id number] / / [id number] Device Watchman Flx 31mm - [id number] Implanted:Qty: 1 on 07/31/2023 by Wilbur Rivera MD at [facility] [employer] : INTRV CARD [id number] 12/02/2025 [id number] / [id number] documented as of this encounter Advance Directives Documents on File Type Date Recorded Patient End Stapler Expl anation Advance Directives and Living Will 11/29/2022 ADVANCE DIRECTIVE / LIVING WILL Power of Stummel Selector 11/29/2022 POWER OF A TTORNEY Advance Directives and Living Will 10/24/2014 ADVANCE DIRECTIVE / LIVING WILL Power of Stummel Selector 10/24/2014 POWER OF A TTORNEY * Full [...] the patient have Health Care Power of Stummel Selector? No * No Code Date Activated Date [...] Agen t (per Health Care Power of Stummel Selector document) Care Teams Medical Dir Relationship Specialty Start Date End Date Florentin Calvo DO [address] [place] [address] PCP - General Internal Medicine 02/06/24 documented as of this encounter
--- OUTSIDE RECORDS SUMMARY | 2024-05-14 04:35 | External Medical Summary ---
Author Name Unknown Address Unknown Organization [id number]:[facility] - [address] [facility] [address] Laboratory Report Ordering Provider Test Date Status GALINA JAMES 05/01/2024 12:01:36 Final Observation Date Value Abnormality Reference (Units ) Status Ferritin 05/01/2024 12:01:36 601 Above high normal 13 -150 (ng/mL) Final Postmenopausal women have hi gher ferritin levels than pre-menopausal women. The above reference interval is based on pre-menopausal women. Performing Location [facility] [address] [facility] [address]
--- OUTSIDE RECORDS SUMMARY | 2024-05-14 04:35 | External Medical Summary ---
Author Name Unknown Address Unknown Organization [id number]:[facility] 57-[address] - [address] [place] [address] Laboratory Report Ordering Provider Test Date Status GALINA JAMES 05/01/2024 12:01:36 Final Observation Date Value Abnormality Reference (Units ) Status Nucleated erythrocytes/100 leukocytes [Ratio] in Blood by Automated count 05/01/2024 12:01:36 Final Performing Location [facility] 57-[address] 0 - [address] [place] [address]
--- OUTSIDE RECORDS SUMMARY | 2024-05-14 04:35 | External Medical Summary | Summary of Care ---
Author Name Unknown Organization [facility] Address [address] [place] [address] Phone [phone] Care Team Providers Care Barback Name Role Phone Florentin Calvo DO Primary Care Provider [phone] Reason for Referral * Evaluate & Treat - Unlimited Visits (Within 30 days (routine)) - Authorized Specialty Diagnoses / Procedures Referred By Danny mcdowell Referred To Contact Nephrology Diagnoses Chronic kidney disease, stage 3b (HCC) Florentin Calvo DO [address] [place] [address] Referral ID Status Reason Start Date Expiration Date Visits Requested Visits Authorized [id number] Authorized Specialty Services Required 04/28/2024 999 999 Question Answer Referral Priority Within 30 days (routine) Where should this appointment be scheduled? Cris What condition is this patient being seen for? Chronic kidney disease Reason for Visit * Reason Onset Date Comments Appointment 04/28/2024 Nephrology Encounter Details Date Type Department Care Team (Late st Contact Info) Description 04/28/2024 Telephone Family Practice 65 [facility] [place] [address] [place] [address] Florentin Calvo DO [address] [place] [address] Appointment (Nephrology) Allergies Active Allergy Reactions Criticality Noted Date [...] as of this encounter (statuses as of 04/28/2024) Medications Medication Sig Dispensed Refills Start Date [...] DIRECTED 100 Tablet 3 03/31/2023 Active Ipratropium [place] 0.03 % Nasal Solution (Atrovent)Indication s:Chronic rhinitis Administer 2 Sprays into nostril in the morning and 2 Sprays before bedtime. 90 mL 3 04/01/2023 Active Allopurinol 300 MG Oral Tablet (Zyloprim) Take 1 Tablet by mouth at bedtime. 90 Tablet 3 05/16/2023 Active Tiotropium [place]-Olodaterol 2.5-2.5 MCG/ACT Inhalation Aerosol Solution (Stiolto Respimat) [...] (toPROL XL)Indications:Parox ysmal atrial fibrillation ([facility]) [...] suspected opioid overdose. Seek immediate medical attention. [email or web address] 1 Each 3 03/16/2024 03/16/2025 Active Levothyroxine [...] days. Take for 7 days. 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: Now just [...] as of this encounter (statuses as of 04/28/2024) Resolved Problems Problem Noted Date Diagnosed Date [...] as of this encounter (statuses as of 04/28/2024) Immunizations Name Administration Dates Next Due COVID-19 mRNA, LNP-s, No Pre serve, 2-Dose Series ([employer]) 06/23/2021,10/25/2020,09/28/2020 COVID-19, LNP-s, No Preserve , Larry-sucrose, Ages 12+ ([employer]) 04/09/2022 COVID-19, MRNA-LNP, 23-24, P F, 30 MCG/0.3 mL, 12 YRS AND ABOVE, IM ([employer]) 06/09/2023 Covid-19, Mrna, Lnp-s, Pf, B ivalent, 30 Mcg, IM, 12 yrs and above ([employer]) 09/10/2022 HEP A - Hepatitis A (Adult [...] or do you have serious difficulty hearing? No-[place] can hear w/ hearing aid 03/07/2023 Are [...] Telephone Encounter - Grace Jeffries OSA - 04/28/2024 1:25 PM EDT Scheduled No appts in July.. Appt 07/09/2024 at 1PM Bright aware * Telephone Encounter - Hilda Awad LPN - 04/28/2024 1:14 PM EDT Sent my Greatist message. Please call and schedule nephrology appt, referral placed if needed. * Telephone Encounter - Hilda Awad LPN - 04/28/2024 1:11 PM EDT ----- Message from Florentin Calvo DO sent at 04/28/2024 11:28 AM EDT ----- DM is controlled TSH is normal CKD is stable. Cholesterol is good. Vitamin D is good. Continue current medications. Make sure patient is scheduled with Nephrology in 07/2024 documented in this encounter Plan of Treatment Upcoming Encounters Date Type Department Care Team (Late st Contact Info) Description 05/04/2024 3:30 PM EDT Office Visit Hematology/Oncolog y [facility] 200 [facility] [place] [place] [address] Nereyda Metz CRNP [address] [place], [place] [address] [address] 05/05/2024 11:40 AM EDT Office Visit Family Practice 65 [facility] [place] 293 [facility], [place] [address] Florentin Calvo DO 293 [facility], [place] [address] 05/06/2024 10:00 AM EDT Scheduled Telephone [facility] [place], [facility] 132 [facility] [place] [address] Coordinator, [facility] [address] [place] [address] 05/06/2024 4:00 PM EDT Home Visit [facility], [facility] [address] [place] [address] Nikolay Wu, RN [address] [place] [address] 05/18/2024 1:20 PM EDT Office [facility] 200 [facility] [place] [address] Carmenza Colon PA-C 200 [facility] [place] [address] 05/21/2024 12:46 PM EDT Hospital Encounter OR [facility], Operating Room, [facility] - 4th Floor [address] [place] [address] Jana Vieira, DO [address] [place] [address] 05/21/2024 12:46 PM EDT - 05/21/2024 1:31 PM EDT Surgery OR [facility], Operating Room, [facility] - 4th Floor [address] [place] [address] Jana Vieira, DO [address] [place] [address] COLONOSCOPY FLEXIBLE PROXIMAL DIAGNOSTIC 06/03/2024 2:15 PM EDT Office Visit Ophthalmology, [facility] [address] [place] [address] Wilbur Benavides, DO [facility] [place] [address] 06/09/2024 8:50 AM EDT Office Visit Vascular Surgery, [facility] 132 [facility] [address] Aj Sahni MD [address] [place] [address] 07/01/2024 2:30 PM EST Office Visit Gastroenterology, [facility] 132 [facility] [address] Lacy Ronquillo CRNP [address] [place] [address] 07/09/2024 1:00 PM EST Office Visit Nephrology, [facility] 200 [place] [address] Michelle Ivy PA-C 200 [facility] [address] 07/27/2024 1:00 PM EST Office Visit Family Practice 65 [facility] 293 [facility] [place] [address] Florentin Calvo, [address] [place] [address] 08/09/2024 1:00 PM EST Nurse Only Ancillary [address] [address] College, Nurse Annual Wellness Visit [address] [address] Scheduled Procedures Name Priority Associated Diagnoses Date/Ti me COLONOSCOPY FLEXIBLE PROXIMA L DIAGNOSTIC Diarrhea, unspecified type History of diverticulitis 05/21/2024 12:46 PM EDT ESOPHAGOGASTRODUODENOSCOPY ( EGD), FLEXIBLE, TRANSORAL, DIAGNOSTIC Diarrhea, unspecified type History of diverticulitis 05/21/2024 12:46 PM EDT Scheduled Referrals Name Type Priority Associated Diagnoses Orde r Schedule NEPHROLOGY REFERRAL OP Referral Within 30 days (routine) Chronic kidney disease, stage 3b (HCC) Ordered: 04/28/2024 Health Maintenance Due Date Last Done Comments [...] Additional history exists CKD HGB USE SMARTSET 16828 04/27/202504/27, 04/27/2024, 03/30/2024, Additional history exists CKD PHOS USE SMARTSET 18657 04/27/2025 09/0 10/2023, 08/19/2023, 05/01/2022, Additional history exists TSH 04/27/2025 04/27/2024, 02/23, 03/15/2024, Additional history exists DXA Scan 05/07/2025 [...] Completed 04/27/2024, 05/13/2023, 05/15/2022, Additional history exists HPV (Gardasil) Vaccine Aged [...] Medical Devices Implanted Type Area Director Of Creative Services Device Identifier Shelf Expiration Date Model / Serial / Lot Cath Thermodilution 6fr - [id number] Implanted:Qty: 1 on 01/24/2023 by Wilbur Rivera MD at [facility] [employer] TERE [id number] 10/15/2024 [id number] / / [id number] Clip Delivery Sytem G4 Xt - [id number] Implanted:Qty: 1 on 03/10/2023 at [facility] [employer] [id number] 04/15/2023 [id number] / / [id number] Clip Delivery Sytem G4 Xtw - [id number] Implanted:Qty: 1 on 03/10/2023 at [facility] [employer] [id number] 12/06/2023 [id number] / / [id number] Mirtaclip G4 - [id number] Implanted:Qty: 1 on 03/10/2023 at [facility] [employer] 11/19/2023 [id number] / / [id number] Device Watchman Flx 31mm - [id number] Implanted:Qty: 1 on 07/31/2023 by Wilbur Rivera MD at [facility] [employer] : INTRV CARD [id number] 12/02/2025 [id number] documented as of this encounter Visit Diagnoses Diagnosis Chronic kidney disease, stage 3b (HCC)- Primary Diarrhea, unspecified type History of diverticulitis documented in this encounter Advance Directives Documents on File Type Date Recorded Patient Manager Educational Expl anation Advance Directives and Living Will 11/29/2022 ADVANCE DIRECTIVE / LIVING WILL Power of Geotechnical Intern 11/29/2022 POWER OF A TTORNEY Advance Directives and Living Will 10/24/2014 ADVANCE DIRECTIVE / LIVING WILL Power of Geotechnical Intern 10/24/2014 POWER OF A TTORNEY * [...] the patient have Health Care Power of Geotechnical Intern? No * No Code Date Activated [...] Agents on File Name Relationship [facility] Bright [place] Adult Child Health Care Agen t (per Health Care Power of Geotechnical Intern document) Care Teams Barback Relationship Specialty Start Date End Date Florentin Calvo DO [address] [place] [address] PCP - General Internal Medicine 02/06/24 documented as of this encounter
--- OUTSIDE RECORDS SUMMARY | 2024-05-14 04:35 | External Medical Summary ---
Author Name Unknown Address Unknown Organization K0G:[facility] [place] [facility]-[address] - [address] [place] [address] Laboratory Report Ordering Provider Test Date Status GALINA JAMES 05/01/2024 12:01:36 Final Observation Date Value Abnormality Reference (Units ) Status WBC, Total 05/01/2024 12:01:36 8.77 4.00-10.8 0 (K/uL) Final RBC 05/01/2024 12:01:36 3.20 3.85-5.15 (M/uL) Final Hemoglobin 05/01/2024 12:01:36 10.0 Below low normal 12 .0-15.3 (g/dL) Final HCT 05/01/2024 12:01:36 30.9 Below low normal 36. 0-45.2 (%) Final MCV 05/01/2024 12:01:36 96.6 81.5-97.5 (fL) Final MCH 05/01/2024 12:01:36 31.3 27.0-34.0 (pg) Final MCHC 05/01/2024 12:01:36 32.4 32.0-36.0 (g/dL) Final RDW 05/01/2024 12:01:36 16.7 11.5-15.5 (%) Final Platelets 05/01/2024 12:01:36 228 140-400 (K /uL) Final MPV 05/01/2024 12:01:36 11.2 6.6-11.1 ( fL) Final Performing Location [facility] 0 - [address] [place] [address]
--- OUTSIDE RECORDS SUMMARY | 2024-05-14 04:35 | External Medical Summary ---
Author Name Unknown Address Unknown Organization K01:[facility] - [address] [place] [address] Laboratory Report Ordering Provider Test Date Status GALINA JAMES 05/01/2024 12:01:36 Final Observation Date Value Abnormality Reference (Units ) Status Iron 05/01/2024 12:01:36 55 33-151 (ug /dL) Final Iron-binding capacity 05/01/2024 12:01:36 256 250-425 (ug/dL) Final Transferrin Sat % 05/01/2024 12:01:36 21 15 -55 (%) Final Performing Location [facility] - [address] [facility] [address]
--- OUTSIDE RECORDS SUMMARY | 2024-05-14 04:35 | External Medical Summary | Summary of Care ---
Author Name Unknown Organization [facility] Address [address] [place] [address] Phone [phone] Care Team Providers Care Team Facilitator Name Role Phone Florentin Calvo DO Primary Care Provider [phone] Reason for Visit * Reason Onset Date Comments Appointment 05/05/2024 Eye apt Encounter Details Date Type Department Care Team (Late st Contact Info) Description 05/05/2024 Telephone Family Practice 65 [facility] [address] [place] [address] Florentin Calvo DO [address] [place] [address] Appointment (Eye apt) Allergies Active Allergy Reactions Criticality Noted Date [...] Dispensed Refills Start Date End Date Status AudioTrip w/Device KitIndications:Type 2 diabetes mellitus with hemoglobin [...] Wheezing. 15 g 12 06/13/2022 Active OneTouch [employer] In Vitro Strip (Glucose Blood) Test blood sugars up to 2 times a day E11.9 200 Strip 3 12/20/2022 Active Atorvastatin Calcium 20 MG Oral Tablet (Lipitor)Indications :PVD (peripheral vascular disease) ([facility]),Type 2 diabetes mellitus with stage 3a chronic kidney disease and hypertension ([facility]) TAKE ONE TABLET BY MOUTH EVERY DAY DIRECTED 100 Tablet 3 03/31/2023 Active Ipratropium [place] 0.03 % Nasal Solution (Atrovent)Indication s:Chronic rhinitis Administer 2 Sprays into nostril in the morning and 2 Sprays before bedtime. 90 mL 3 04/01/2023 Active Allopurinol 300 MG Oral Tablet (Zyloprim) Take 1 Tablet by mouth at bedtime. 90 Tablet 3 05/16/2023 Active Tiotropium [place]-Olodaterol 2.5-2.5 MCG/ACT Inhalation Aerosol Solution (Stiolto Respimat) [...] :Compression fracture of T12 vertebra, initial encounter ([facility]) Administer 1 spray into 1 nostril for suspected opioid overdose. Seek immediate medical attention. 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) 06/09/2023 Covid-19, Mrna, Lnp-s, Pf, B ivalent, 30 Mcg, IM, 12 yrs and above (Pfizer) 09/10/2022 HEP A - Hepatitis A (Adult > 18 yrs) 03/15/2004, 07/29/2003 Pneumococcal Conjugate Vacc, 13 Valent (Prevnar) 09/21/2015 Pneumococcal Conjugate Vacci ne, 20-valent ([id number]) 05/05/2024 Pneumococcal Polysaccharide PPV23 (Pneumovax) 05/25/2012,07/25/2007 RSV [...] or do you have serious difficulty hearing? No-CAPITAN GRANDE BAND can hear w/ hearing aid 03/07/2023 Are [...] Encounter - Grace Jeffries OSA - 05/05/2024 12:50 PM EDT ADULT/PEDS OPHTHALMOLOGY/OPTOMETRY REFERRAL Patient scheduled documented in this encounter Plan of Treatment Upcoming Encounters Date Type Department Care Team (Late st Contact Info) Description 05/06/2024 10:00 AM EDT Scheduled Telephone [place] [facility] [address] [place] [address] Coordinator, [facility] [address] [address] [address] 05/06/2024 4:00 PM EDT Home Visit [place] [facility] [address] [address] Nikolay Wu, AISHA [address] [place] [address] 05/18/2024 1:20 PM EDT Office Visit Neurology [facility] 200 [facility] [place] [address] Carmenza Colon PA-C 200 [facility] [place] [address] 05/21/2024 12:46 PM EDT Hospital Encounter OR [facility], Operating Room, [facility] - 4th Floor 400 [facility] [place] [phone] Jana Vieira, DO 132 [facility] [place] [address] 05/21/2024 12:46 PM EDT - 05/21/2024 1:31 PM EDT Surgery OR [facility], Operating Room, [facility] - 4th Floor [address] [place] [phone] Jana Vieira, DO 132 [facility] [place] [address] COLONOSCOPY FLEXIBLE PROXIMAL DIAGNOSTIC 06/02/2024 3:20 PM EDT Office Visit Family Practice [address] [place] [address] [address] [place] [address] Florentin Calvo, DO [address] [place] [address] 06/03/2024 2:15 PM EDT Office Visit Ophthalmology, [facility] 132 [facility] [place] [address] Wilbur Benavides, DO 21 [facility] [place] [address] 06/09/2024 8:50 AM EDT Office Visit Vascular Surgery, [facility] [address] [facility] [place] [address] Aj Sahni MD [address] [place] [address] 07/01/2024 2:30 PM EST Office Visit Gastroenterology, [facility] 132 [facility] [place] [address] Lacy Ronquillo CRNP [address] [place] [address] 07/09/2024 1:00 PM EST Office Visit Nephrology, [facility] 200 [facility], [place] [address] ZemaMichelle churchill PA-C 200 [facility] [place] [address] 07/27/2024 1:00 PM EST Office Visit Family Practice 65 [facility] 293 [facility] [address] Florentin Calvo, 293 [place] [address] 08/09/2024 1:00 PM EST Nurse Only Ancillary 65 [facility] 293 [facility] [address] College, Nurse Annual Wellness Visit [address] [place] [address] 11/01/2024 12:00 PM EDT Office Visit Hematology/Oncolog y [facility] 200 [facility] [place] [phone] Nereyda Metz CRNP [address] [place] [address] Scheduled Procedures Name Priority Associated Diagnoses Date/Ti me COLONOSCOPY FLEXIBLE PROXIMA L DIAGNOSTIC Diarrhea, unspecified type History of diverticulitis 05/21/2024 12:46 PM EDT ESOPHAGOGASTRODUODENOSCOPY ( EGD), FLEXIBLE, TRANSORAL, DIAGNOSTIC Diarrhea, unspecified type History of diverticulitis 05/21/2024 12:46 PM EDT Health Maintenance Due Date Last Done Comments Alpha-1 Antitrypsin 1958 Adult Wellness Visit 10/01/2023 10/01/2022, 04/27/20 Diabetic Eye Exam 05/22/2024 05/22/2023, , 05/22/2023, [...] Additional history exists CKD PHOS USE SMARTSET 18773 04/27/2025 09/0 10/2023, 08/19/2023, 05/01/2022, Additional history exists TSH 04/27/2025 04/27/2024, 02/23, 03/15/2024, Additional history exists CKD HGB USE SMARTSET 65333 05/01/202505/01, 05/01/2024, 04/27/2024, Additional history exists DXA [...] this encounter Medical Devices Implanted Type Area Outside Industrial Sales Representative Device Identifier Shelf Expiration Date Model / Serial / Lot Cath Thermodilution 6fr - [id number] Implanted:Qty: 1 on 01/24/2023 [place]bur [place] [facility] [place] [employer] [id number] 10/15/2024 [id number] / / [id number] Clip Delivery Sytem G4 Xt - [id number] Implanted:Qty: 1 on 03/10/2023 [place] [facility] [place] [employer] [id number] 04/15/2023 [id number] / / [id number] Clip Delivery Sytem G4 Xtw - [id number] Implanted:Qty: 1 on [place]/10/2023 [place] [facility] [place] [employer] [id number] 12/06/2023 [id number] / / [id number] Mirtaclip G4 - [id number] Implanted:Qty: 1 on 03/10/2023 [place] [facility] [place] [employer] 11/19/2023 [id number] / / [id number] Device Watchman Flx 31mm - [id number] Implanted:Qty: 1 on 07/31/2023 by Wilbur Rivera [place] [facility] [place] [employer] : INTRV CARD [id number] 12/02/2025 [id number] documented as of this encounter Advance Directives Documents on File Type Date Recorded Patient Hand Mica Plate Layer Expl anation Advance Directives and Living Will 11/29/2022 ADVANCE DIRECTIVE / LIVING WILL Power of Edge Bonder 11/29/2022 POWER OF A TTORNEY Advance Directives and Living Will 10/24/2014 ADVANCE DIRECTIVE / LIVING WILL Power of Edge Bonder 10/24/2014 POWER OF A TTORNEY * Full [...] patient have Health Care Power of Edge Bonder? No * No Code Date Activated Date [...] Agents on File Name Relationship Healthcare Agent [facility] Communication [facility] Adult Child Health Care Frieda t (per Health Care Power of Edge Bonder document) Care Teams Team Facilitator Relationship Specialty Start Date End Date Florentin Calvo DO 293 [place] [address] PCP - General Internal Medicine 02/06/24 documented as of this encounter
--- OUTSIDE RECORDS SUMMARY | 2024-05-14 04:35 | External Medical Summary | Summary of Care ---
Author Name Unknown Organization [facility] Address [address] [place] [address] Phone [phone] Care Team Providers Care Accounting Technician Name Role Phone Florentin Calvo DO Primary Care Provider [phone] Reason for Visit * Reason Comments Dosage Adjustment In Person (Anticoag Cl inic) Medication Management Encounter Details Date Type Department Care Team (Late st Contact Info) Description 04/27/2024 2:00 PM EDT Pharmacy Family Practice [address] [address] College, Pharmacist [address] [address] Medication management* Allergies Active Allergy Reactions Criticality Noted Date [...] as of this encounter (statuses as of 05/02/2024) Medications Medication Sig Dispensed Refills Start Date End Date Status [employer] Verio w/Device KitIndications:Type 2 diabetes mellitus with [...] Oral Tablet (Lipitor)Indications :PVD (peripheral vascular disease) ([facility]),Type 2 diabetes mellitus with stage 3a chronic kidney disease and hypertension ([facility]) TAKE ONE TABLET BY MOUTH EVERY DAY DIRECTED 100 Tablet 3 03/31/2023 Active Ipratropium [place] 0.03 % Nasal Solution (Atrovent)Indication s:Chronic rhinitis Administer 2 Sprays into nostril in the morning and 2 Sprays before bedtime. 90 mL 3 04/01/2023 Active Allopurinol 300 MG Oral Tablet (Zyloprim) Take 1 Tablet by mouth at bedtime. 90 Tablet 3 05/16/2023 Active Tiotropium [place]-Olodaterol 2.5-2.5 MCG/ACT Inhalation Aerosol Solution (Stiolto Respimat) [...] 24 Hour (toPROL XL)Indications:Parox ysmal atrial fibrillation ([facility]) Take 1 Tablet by mouth in [...] (Demadex)Indications :Chronic diastolic CHF (congestive heart failure) ([facility]) Take 2 Tablets by mouth in the morning. 200 Tablet 3 02/24/2024 Active Polyethylene Glycol 3350 17 GM/SCOOP Oral Powder (MiraLax) Take 17 g by mouth in the morning and 17 g before bedtime. Dissolve one heaping tablespoon in 8 ounces of water or juice.. 03/12/2024 Active Naloxone HCl 4 MG/0.1ML NA LIQD FOR CAREGIVERIndications :Compression fracture of T12 vertebra, initial encounter ([facility]) Administer 1 spray into 1 nostril for suspected opioid overdose. Seek immediate medical attention. [email or web address] 1 Each 3 03/16/2024 03/16/2025 Active Levothyroxine Sodium 175 MCG Oral Tablet (Levoxyl)Indications :Acquired hypothyroidism Take 1 Tablet by mouth daily first thing in the morning. 90 Tablet 3 03/17/2024 Active Aspirin 81 MG Oral Tablet Delayed Release Take 1 Tablet by mouth in the morning. Active Senna-Docusate Sodium 8.6-50 MG Oral TabletIndications:Dr jaren-induced constipation Take 1 Tablet by mouth at bedtime. 100 Tablet 3 03/30/2024 Active oxyCODONE HCl 5 MG Oral Tablet (Oxy IR)Indications:Close d fracture of multiple ribs of left side with routine healing, subsequent encounter Take 1 Tablet by mouth every 6 hours as needed for Pain, Breakthrough. 03/30/2024 Active fentaNYL 12 MCG/HR Transdermal Patch 72 HourIndications:Comp ression fracture of T12 vertebra, initial encounter ([facility]) Place 1 Patch over 72 hours topically on the skin every 3 days. For pain control. 10 Patch 04/19/2024 Active busPIRone HCl 5 MG Oral Tablet (Buspar) Take 1 Tablet by mouth in the morning and 1 Tablet before bedtime. 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 No-UPPER MATTAPONI can hear w/ hearing aid 03/07/2023 Are [...] this encounter Progress Notes * Veronique Batista, [facility] - 04/27/2024 2:51 PM EDT Medication Therapy Disease [facility] - Medication Reconciliation Encounter Type: discussed with patient and son Med Bottles Available for Review: no Med Rec Reason: EDIS Prescription insurance information: P Regis Do you have any other prescription coverage: Yes, PACE [facility]) [x] Problem list reviewed [x] Allergies reviewed and updated if needed [x] Drug interaction check completed [x] HEDIS list addressed Immunizations: Up to Date - got flu shot today Date of Hospital Admission/Primary Diagnosis: COVID - [facility] - 04/12/24 Date of Discharge from Hospital: 04/15/24 Medication changes during admission/on discharge: Added: mucinex and benzonatate Modified: none Discontinued: none Does the patient currently have all of their medications in their home?: Yes, but hasn't been usingmucinex Medication Organization/Adherence: Has home care nurse or caregiver: no Patient uses a pill box? Yes, refill(s) completed by self and kids When you are at home, how often [...] to 79 The patient has a prior MO or stroke diagnosis BP Readings from Last 3 Encounters: 04/27/24 118/60 04/17/24 102/60 04/09/24 116/62 Recent Labs Units 12/08/23 1520 08/15/23 0000 02/21/23 1231 HEMOGLOBIN A1C - [facility] % 6.8* -- 6.5* HEMOGLOBIN, P1B-[facility] -- 6.8* -- Recent Labs Units 03/30/24 1155 03/15/24 1709 03/02/24 1031 ESTIMATED GLOMERULAR FILTRATION RATE - [facility] mL/min 29* 20* 22* Serum creatinine: 1.7 mg/dL (H) 03/30/24 1155 Estimated creatinine clearance: 24.9 mL/min (A) Assessment & Plan: Medication discrepancies identified: patient hasn't been taking mucinex - but does report trouble bringing up mucus. Dose/frequency of medications appropriate for current renal function? yes Other medication problems identified: patient and son asking for sleeping pill. Reports she's having trouble staying asleep/falling back asleep after waking to use the restroom. Patient education provided: Advised that a sedative sleeping pill is not safe for patient in combination with her opioids as well as with recent history of multiple falls. Discussed trying to take melatonin 3 mg when she wakes up in the middle of the night. Referral pended for follow up management of: N/A Summary- Changes & Recommendations: Med rec completed. I spent a total of 10-19 minutes (exact time 18 mins) on the date of service in preparation, delivery, and documentation of the care provided to Inga Barakat excluding any time spent in the performance of separately billed services or time spent by another provider/QHP. Veronique Nye [facility] Clinical Pharmacist - Motor Coach Supervisor Medication Therapy Management Clinic 04/27/2024, 2:51 PM documented in this encounter Plan of Treatment Upcoming Encounters Date Type Department Care Team (Late st Contact Info) Description 05/04/2024 3:30 PM EDT Office Visit Hematology/Oncolog y [facility] [place] 200 [place] [phone] Nereyda Metz CRNP [address] [place] [id number] 05/05/2024 11:40 AM EDT Office Visit Family Practice [address], [place] [facility] [address] Florentin Calvo DO 293 [facility] [address] 05/06/2024 10:00 AM EDT Scheduled Telephone [place] [facility], [facility] 132 [facility] [place] [address] Coordinator, [facility] 132 [facility] [place] [address] 05/06/2024 4:00 PM EDT Home Visit [facility] [facility], [facility] 132 [facility] [place] [address] Nikolay Wu, RN 132 [facility] [place] [address] 05/18/2024 1:20 PM EDT Office Visit Neurology [facility] [place] 200 [facility] [place] [address] Carmenza Colon PA-C 200 [place] [address] 05/21/2024 12:46 PM EDT Hospital Encounter OR [facility], Operating Room, [facility] - 4th Floor [address] [place] [address] Jana Vieira, DO [address] [address] [facility] [place] [address] 05/21/2024 12:46 PM EDT - 05/21/2024 1:31 PM EDT Surgery OR [facility], Operating Room, [facility] - 4th Floor [address] [place] [phone] Jana Vieira, DO [address] [facility] [place] [address] COLONOSCOPY FLEXIBLE PROXIMAL DIAGNOSTIC 06/03/2024 2:15 PM EDT Office Visit Ophthalmology, [facility] 132 [facility] [place] [address] Wilbur Benavides, DO 21 [facility] [place] [address] 06/09/2024 8:50 AM EDT Office Visit Vascular Surgery, [facility] 132 [facility] [place] [address] Aj Sahni MD [address] [place] [address] 07/01/2024 2:30 PM EST Office Visit Gastroenterology, [facility] 132 [facility] [place] [address] Lacy Ronquillo CRNP 132 [facility] [place] [address] 07/09/2024 1:00 PM EST Office Visit Nephrology, [facility]ri Zam[facility] [address] [place] [address] ZemaMichelle churchill PA-C [address] [place] [address] 07/27/2024 1:00 PM EST Office Visit Family Practice 65 [facility] 293 [facility] [place] [phone] Florentin Calvo DO 293 [facility] [place] [address] 08/09/2024 1:00 PM EST Nurse Only Ancillary 65 [facility] [address] [place] [address] College, Nurse Annual Wellness Visit [address] [place] [address] Scheduled Procedures Name Priority Associated Diagnoses Date/Ti [...] 12/2023, 2023, Additional history exists Albumin/Creatinine Ratio 12/08/202412/08/2 024, 02/21/2023, 05/01/2022, Additional history exists CKD PHOS USE SMARTSET 67268 04/27/2025 09/0 10/2023, 08/19/2023, 05/01/2022, Additional history exists TSH 04/27/2025 04/27/2024, 02/23, 03/15/2024, Additional history exists CKD HGB USE SMARTSET 35098 05/01/202505/01, 05/01/2024, 04/27/2024, Additional history exists DXA [...] this encounter Medical Devices Implanted Type Area Lie Detector Operator Device Identifier Shelf Expiration Date Model / Serial / Lot Cath Thermodilution 6fr - [id number] Implanted:Qty: 1 on 01/24/2023 by Wilbur Rivera MD [place] [facility] [place] [employer] TERE [id number] 10/15/2024 [id number] / / [id number] Clip Delivery Sytem G4 Xt - [id number] Implanted:Qty: 1 on 03/10/2023 [place] [facility] [place] [employer] [id number] 04/15/2023 [id number] / / [id number] Clip Delivery Sytem G4 Xtw - [id number] Implanted:Qty: 1 on 03/10/2023 [place] [facility] [place] [employer] [id number] 12/06/2023 [id number] TW / / [id number] Mirt[employer] G4 - [id number] Implanted:Qty: 1 on 03/10/2023 [place] [facility] [place] [employer] 11/19/2023 [id number] / / [id number] Device Watchman Flx 31mm - [id number] Implanted:Qty: 1 on 07/31/2023 by Wilbur Rivera MD [place] [facility] [place] [employer] : INTRV CARD [id number] 12/02/2025 [id number] documented as of this encounter Visit Diagnoses Diagnosis Medication management- Primary Encounter for long-term (current) use of other medications Diarrhea, unspecified type History of diverticulitis documented in this encounter Advance Directives Documents on File Type Date Recorded Patient Funeral Service Licensee Expl anation Advance Directives and Living Will 11/29/2022 ADVANCE DIRECTIVE / LIVING WILL Power of Auto Body Straightener 11/29/2022 POWER OF A TTORNEY Advance Directives and Living Will 10/24/2014 ADVANCE DIRECTIVE / LIVING WILL Power of Auto Body Straightener 10/24/2014 POWER OF A TTORNEY * Full [...] the patient have Health Care Power of Auto Body Straightener? No * No Code Date Activated Date [...] on File Name Relationship Healthcare Agent [facility] p Communication Bright Barakat Adult Child Health Care Frieda t (per Health Care Power of Auto Body Straightener document) Care Teams Accounting Technician Relationship Specialty Start Date End Date Florentin Calvo DO [address] [facility] [place] [address] PCP - General Internal Medicine 02/06/24 documented as of this encounter
--- OUTSIDE RECORDS SUMMARY | 2024-05-14 04:35 | External Medical Summary | Summary of Care ---
Author Name Unknown Organization [facility] Address [address] [place] [address] Phone [phone] Care Team Providers Care Senior Vice President Name Role Phone Florentin Calvo DO Primary Care Provider [phone] Reason for Referral * Evaluate & Treat - Unlimited Visits (Within 30 days (routine)) - Authorized Specialty Diagnoses / Procedures Referred By Danny mcdowell Referred To Contact Nephrology Diagnoses Chronic kidney disease, stage 3b (HCC) Florentin Calvo DO [address] [place] [address] Referral ID Status Reason Start Date Expiration Date Visits Requested Visits Authorized [id number] Authorized Specialty Services Required 04/28/[phone] Question Answer Referral Priority Within 30 days (routine) Where should this appointment be scheduled? Cris What condition is this patient being seen for? Chronic kidney disease Reason for Visit * Reason Onset Date Comments Appointment 04/28/2024 Nephrology Encounter Details Date Type Department Care Team (Late st Contact Info) Description 04/28/2024 Telephone Family Practice [facility] [place] [address] [place] [address] Florentin Calvo DO [address] [place] [address] Appointment (Nephrology) Allergies Active Allergy Reactions Criticality [...] (Lipitor)Indications :PVD (peripheral vascular disease) ([facility]),Type 2 diabetes mellitus with stage 3a chronic kidney disease and hypertension ([facility]) TAKE ONE TABLET BY MOUTH EVERY DAY DIRECTED 100 Tablet 3 03/31/2023 Active Ipratropium [place] 0.03 % Nasal Solution (Atrovent)Indication s:Chronic rhinitis Administer 2 Sprays into nostril in the morning and 2 Sprays before bedtime. 90 mL 3 04/01/2023 Active Allopurinol 300 MG Oral Tablet (Zyloprim) Take 1 Tablet by mouth at bedtime. 90 Tablet 3 05/16/2023 Active Tiotropium Truro-Olodaterol 2.5-2.5 MCG/ACT Inhalation Aerosol Solution (Stiolto Respimat) [...] (toPROL XL)Indications:Parox ysmal atrial fibrillation ([facility]) Take 1 Tablet by mouth in [...] (congestive heart failure) ([facility]) Take 2 Tablets by mouth in [...] of T12 vertebra, initial encounter ([facility]) Administer 1 spray into 1 nostril for suspected opioid overdose. Seek immediate medical attention. 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 [place] can hear w/ hearing aid 03/07/2023 Are [...] - 04/28/2024 1:14 PM EDT Sent my [employer] message. Please call and schedule nephrology appt, [...] 3:30 PM EDT Office Visit Hematology/Oncolog y [facility] [address] [facility] [place] [address] Nereyda Metz CRNP [address] [place], [place] [address] [address] 05/05/2024 11:40 AM EDT Office Visit Family Practice 65 [facility] [place] [address] [facility], [place] [address] Florentin Calvo DO [address] [facility], [place] [address] 05/06/2024 10:00 AM EDT Scheduled Telephone [facility] [place], [facility] [address] [facility] [place] [address] Coordinator, [facility] [address] [place] [address] 05/06/2024 4:00 PM EDT Home Visit [facility], [facility] [address] [place] [address] Nikolay Wu, RN [address] [place] [address] 05/18/2024 1:20 PM EDT Office Visit Neurology [facility] [address] [facility] [place] [address] Carmenza Colon PA-C [address] [facility] [place] [address] 05/21/2024 12:46 PM EDT Hospital Encounter OR [facility], Operating Room, [facility] - 4th Floor [address] [place] [address] Jana Vieira, DO [address] [place] [address] 05/21/2024 12:46 PM EDT - 05/21/2024 1:31 PM EDT Surgery OR [facility], Operating Room, [facility] - 4th Floor [address] [place] [address] Jana Vieira, DO [address] [place] [address] COLONOSCOPY FLEXIBLE PROXIMAL DIAGNOSTIC 06/03/2024 2:15 PM EDT Office Visit Ophthalmology, [facility] [address] [place] [address] Wilbur Benavides, DO [address] [facility] [place] [address] 06/09/2024 8:50 AM EDT Office Visit Vascular Surgery, [facility] 132 [place] [address] Aj Sahni MD [address] [place] [address] 07/01/2024 2:30 PM EST Office Visit Gastroenterology, [facility] [address] [facility] [place] [address] Lacy Ronquillo CRNP [address] [place] [address] 07/09/2024 1:00 PM EST Office Visit Nephrology, [facility] 200 [place] [address] Michelle Ivy PA-C 200 [place] [address] 07/27/2024 1:00 PM EST Office Visit Family Practice 65 [facility] [address] [place] [address] Florentin Calvo, [address] [place] [address] 08/09/2024 1:00 PM EST Nurse Only Ancillary [address] [address] College, Nurse Annual Wellness Visit [address] [address] Scheduled Procedures Name Priority Associated Diagnoses Date/Ti [...] Additional history exists CKD HGB USE SMARTSET 89446 04/27/202504/27, 04/27/2024, 03/30/2024, Additional history exists CKD PHOS USE SMARTSET 55196 04/27/2025 09/0 10/2023, 08/19/2023, 05/01/2022, Additional history [...] this encounter Medical Devices Implanted Type Area Melt Helper Device Identifier Shelf Expiration Date Model / Serial / Lot Cath Thermodilution 6fr - [id number] Implanted:Qty: 1 on 01/24/2023 by Wilbur Rivera MD at [facility] [place] [place] [employer] [id number] 10/15/2024 [id number] / / [id number] Clip Delivery Sytem G4 Xt - [id number] Implanted:Qty: 1 on 03/10/2023 at [facility] [place] [place] [employer] [id number] 04/15/2023 [id number] / / [id number] Clip Delivery Sytem G4 Xtw - [id number] Implanted:Qty: 1 on 03/10/2023 at [facility] [place] [place] [employer] [id number] 12/06/2023 [id number] / / [id number] Mirtaclip G4 - [id number] Implanted:Qty: 1 on 03/10/2023 at [facility] [place] [place] [employer] 11/19/2023 [id number] / / [id number] Device Watchman Flx 31mm - [id number] Implanted:Qty: 1 on 07/31/2023 by Wilbur Rivera MD at [facility] [place] [place] 12 [employer] : INTRV CARD [id number] 12/02/2025 [id number] documented as of this encounter Visit Diagnoses Diagnosis Chronic kidney disease, stage 3b (HCC)- Primary Diarrhea, unspecified type History of diverticulitis documented in this encounter Advance Directives Documents on File Type Date Recorded Patient Cage Manager Expl anation Advance Directives and Living Will 11/29/2022 ADVANCE DIRECTIVE / LIVING WILL Power of Flat Breakdown Processor 11/29/2022 POWER OF A TTORNEY Advance Directives and Living Will 10/24/2014 ADVANCE DIRECTIVE / LIVING WILL Power of Flat Breakdown Processor 10/24/2014 POWER OF A TTORNEY * Full [...] the patient have Health Care Power of Flat Breakdown Processor? No * No Code Date Activated Date [...] Agents on File Name Relationship Healthcare Agent [facility] [place] [facility] t (per Health Care Power of Flat Breakdown Processor document) Care Teams Senior Vice President Relationship Specialty Start Date End Date Florentin Calvo DO [address] [facility] [place] [address] PCP - General Internal Medicine 02/06/24 documented as of this encounter
--- OUTSIDE RECORDS SUMMARY | 2024-05-14 04:35 | External Medical Summary ---
Author Name Unknown Address Unknown Organization [facility] [address] [place] [address] Laboratory Report Ordering Provider Test Date Status GALINA JAMES 05/01/2024 12:01:36 Final Observation Date Value Abnormality Reference (Units ) Status SYNC LEUKOCYTES IN BLOOD BY AUTOMATED COUNT 05/01/2024 12:01:36 8.77 4.00-10.80 (K/uL) Final Segs 05/01/2024 12:01:36 65.8 40.0-75.0 (%) Final Lymphs % 05/01/2024 12:01:36 15.2 Below low normal 18.0-42.0 (%) Final Monos 05/01/2024 12:01:36 9.1 1.0-11.0 (%) Final Eosinophils 05/01/2024 12:01:36 9.8 Above high normal 0.0-6.0 (%) Final Basos 05/01/2024 12:01:36 0.1 0.0-2.0 (%) Final Absolute Segs 05/01/2024 12:01:36 5.77 1.80-7.70 (K/uL) Final Lymphs, absolute 05/01/2024 12:01:36 1.33 1.00-4.80 (K/ul) Final Monos, Abs 05/01/2024 12:01:36 0.80 0.00-1.10 (K/uL) Final Eos, Abs 05/01/2024 12:01:36 0.86 Above high normal 0.00-0.70 (K/uL) Final Basos, Abs 05/01/2024 12:01:36 0.01 0.00-0.20 (K/uL) Final [facility] [place] [address]
--- OUTSIDE RECORDS SUMMARY | 2024-05-14 04:35 | External Medical Summary | Summary of Care ---
Author Name Unknown Organization [facility] Address [address] [place] [address] Phone [phone] Care Team Providers Care Retail Maintenance Technician Name Role Phone Grey Calvo DO Primary Care Provider [phone] Reason for Referral * Evaluate & Treat - Unlimited Visits (Within 10 days (routine)) - Authorized Specialty Diagnoses / Procedures Referred By Danny mcdowell Referred To Contact Neurology Diagnoses Memory loss Grey Calvo DO [address] [place] [address] Referral ID Status Reason Start Date Expiration Date Visits Requested Visits Authorized [id number] Authorized Specialty Services Required 04/27/[phone] Question Answer Referral Priority Within 10 days (routine) Where should this appointment be scheduled? [facility] This patient already has care established with Neurology. Do not place this order. Please use Ask A Doc to expedite care. Acknowledge Is this referral being placed for insurance purposes ONLY No, patient needs appointment [facility] NEUROLOGY REFERRAL QUESTIONS Memory/Cognition Reason for Visit * Reason Onset Date Comments Follow Up Medication Administration 04/27/2024 Flu an d/or Pneumo Inj Hospital Follow-Up 04/27/2024 Encounter Details Date Type Department Care Team (Late st Contact Info) Description 04/27/2024 2:20 PM EDT Office Visit Family Practice [address] [place] [address] [place] [address] Grey Calvo, [address] [place] [address] Bronchitis due to COVID-19 virus*; Cellulitis of right toe; Type 2 diabetes mellitus with stage 3b chronic kidney disease, without long-term current use of insulin (HCC); 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 (HCC); Paroxysmal atrial fibrillation (HCC); Secondary hyperparathyroidism, renal (HCC); Pulmonary hypertension (HCC); Acquired hypothyroidism; 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 claudication; Tremor; Memory loss; Pure hypercholesterolemia; Cardiac pacemaker in situ; Closed wedge compression fracture of T12 vertebra with routine healing, subsequent encounter; Normocytic anemia; Severe tricuspid regurgitation; Atherosclerosis of [place] coronary artery of yankton heart without angina pectoris; S/P mitral valve clip implantation; Presence of Watchman left atrial appendage closure device; Chronic obstructive pulmonary disease, unspecified COPD type (HCC); History of TIA (transient ischemic attack); Need for prophylactic vaccination and inoculation against influenza; Hospital discharge follow-up; Stage 3b chronic kidney disease (HCC); Hyperuricemia; Iron deficiency anemia, unspecified iron deficiency anemia type; Chronic kidney disease, stage 3b (HCC) Allergies Active Allergy Reactions Criticality Noted [...] Dispensed Refills Start Date End Date Status [employer] NetworksToMobicow w/Device KitIndications:Type 2 diabetes mellitus with hemoglobin [...] DIRECTED 100 Tablet 3 3 Active Ipratropium [place] 0.03 % Nasal Solution (Atrovent)Indicatio ns:Chronic rhinitis Administer 2 Sprays into nostril in the morning and 2 Sprays before bedtime. 90 mL 3 3 Active Allopurinol 300 MG Oral Tablet (Zyloprim) Take 1 Tablet by mouth at bedtime. 90 Tablet 3 3 Active Tiotropium [place]-Olodaterol 2.5-2.5 MCG/ACT Inhalation Aerosol Solution (Stiolto Respimat) [...] diastolic CHF (congestive heart failure) ([facility]) Take 2 Tablets by mouth in [...] of T12 vertebra, initial encounter ([facility]) Administer 1 spray into 1 nostril for suspected opioid overdose. Seek immediate medical attention. [email or web address]://[email or web address]/watch? [email or web address] 1 Each 3 4 03/16/20 25 Active [...] at bedtime. 100 Tablet 3 4 Active oxyCODONE HCl 5 MG Oral Tablet (Oxy IR)Indications:Clos ed fracture of multiple ribs of left side with routine healing, subsequent encounter Take 1 Tablet by mouth every 6 hours as needed for Pain, Breakthrough. 4 Active fentaNYL 12 MCG/HR Transdermal Patch 72 HourIndications:Com pression fracture of T12 vertebra, initial encounter ([facility]) Place 1 Patch over 72 hours topically on the skin every 3 days. For pain control. 10 Patch 4 Active busPIRone HCl 5 MG Oral Tablet (Buspar) Take 1 Tablet by mouth in the morning and 1 Tablet before bedtime. 60 Tablet 3 4 Active Doxycycline Hyclate 100 MG Oral CapsuleIndications: Cellulitis of right toe Take 1 Capsule by mouth in the morning and 1 Capsule before bedtime. Do all this for 7 days. Take for 7 days. 14 Capsule 4 05/04/20 24 Active Molnupiravir 200 MG Oral CapsuleIndications: COVID-19 virus infection Take 4 Capsules by mouth in the morning and 4 Capsules before bedtime. Do all this for 5 days. 40 Capsule 4 04/27/20 24 Discontinued documented as of this encounter (statuses as of 04/28/2024) Active Problems Problem Noted Date Diagnosed Date Closed wedge compression fracture of T12 vertebr a 03/12/2024 Last Assessment & Plan: Increased oxy from 2.5mg to 5mg [id number] prn Ortho spine ref, ?kyphoplasty Constipation 03/12/2024 [...] mitral valve clip implantation 03/06/2023 Atherosclerosis of [place]ankton 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 02/13/2023 [...] Obstructive sleep apnea of adult 09/09/2014 Overview: [employer] Last Assessment & Plan: Now just [...] (Moderna) 06/23/2021,10/25/2020,09/28/2020 COVID-19, LNP-s, No Preserve , Alrry-sucrose, Ages 12+ (Pfizer) 04/09/2022 COVID-19, MRNA-LNP, 23-24, [...] Reading Time Taken Comments Blood Pressure 118/60 04/27/2024 2:16 PM EDT Pulse 74 04/27/2024 2:16 PM EDT Temperature 36 C (96.8 F) 04/27/2024 2:16 PM EDT Respiratory Rate 16 04/27/2024 2:16 PM EDT Oxygen Saturation 99% 04/27/2024 2:16 PM EDT Inhaled Oxygen Concentration - - Weight 71.8 kg (158 lb 4.8 oz) 04/27/2024 2:16 P M EDT Height 165.1 cm (5' 5") 04/27/2024 2:16 PM EDT Body Mass Index 26.34 04/27/2024 2:16 PM EDT documented in this encounter Functional Status Functional Status Response Date of Assess ment Are you deaf or do you have serious difficulty hearing? No-[place] can hear w/ hearing aid 03/07/2023 [...] * Patient Instructions* Hilda Awad LPN - 04/27/2024 2:14 PM EDT ~~PATIENT INSTRUCTIONS FOR FLU SHOT~~ Possible [...] documented in this encounter Progress Notes * Grey Calvo, - 04/27/2024 3:40 PM EDT SUBJECTIVE: Inga Barakat is a 83 year old female. Chief Complaint Patient presents with Follow Up Medication Administration Flu and/or Pneumo Inj Hospital Follow-Up Recent Admission: Patient was recently admitted to [facility]. The date of discharge was 04/15/2024.Discharge report received and reviewed. HPI: Patient is an 83 year old female with a history of Atrial Fibrillation, Pacemaker Implant, Severe Mitral Regurgitation repaired with mitral valve clip, Watchman Atrial Appendage Closure Device [id number]/31/2023, Severe Tricuspid Valve Regurgitation, Pulmonary HTN, CKD stage III, Lumbar Spinal Fusion, Asthma, TIA, Essential Tremor, Adenocarcinoma of the Uterus treated with Hysterectomy, Iron Deficiency Anemia due to chronic GI blood loss, and Chronic Diastolic CHF that is seen for hospital followup. The patient was admitted to [facility] from 04/13/2024- 04/15/2024 due to weakness from COVID bronchitis. She was treated with Remdesivir for 3 days. The patient has continued back pain and follow up x-rays of thoracic spine have been ordered by Neurosurgery. Weight is stable and appetite is good. Patient has episodes of memory loss and disorientation for a few months. Patient Active Problem List Diagnosis DM type [...] of TIA (transient ischemic attack) Atherosclerosis of yankton coronary artery without angina pectoris S/P mitral [...] MOUTH EVERY DAY DIRECTED 100Tablet 3 Ipratropium [place] 0.03 % Nasal Solution (Atrovent) Administer 2 Sprays into nostril in the morning and 2 Sprays before bedtime. 90 mL 3 Allopurinol 300 MG Oral Tablet (Zyloprim) Take 1 Tablet by mouth at bedtime. 90 Tablet 3 Tiotropium [place]-Olodaterol 2.5-2.5 MCG/ACT Inhalation Aerosol Solution (Stiolto Respimat) [...] in 8 ounces of water or juice.. Levothyroxine Sodium 175 MCG Oral Tablet (Levoxyl) [...] Take for 7 days. 14 Capsule 0 OneTouch Verio w/Device Kit Use up to 1 times a day. E11.9 1 Kit 0 OneTouch Verio In Vitro Strip (Glucose Blood) Test blood sugars up to 2 times a day E11.9 200 Strip3 Naloxone HCl 4 MG/0.1ML NA LIQD FOR CAREGIVER Administer 1 spray into 1 nostril for suspected opioid overdose. Seek immediate medical attention. https://www.youtube.com/[email or web address] 1 Each 3 No current facility-administered medications [...] [facility] Nickel Swelling Other reaction(s): Unknown OBJECTIVE: BP 118/60 | Pulse 74 | Temp 36 C (96.8 F) (Tympanic) | Resp 16 | Ht 1.651 m (5' 5") | Wt 71.8 kg (158 lb 4.8 oz) | SpO2 99% | BMI 26.34 kg/m | BSA 1.81 m REVIEW OF SYSTEMS: Review of Systems Constitutional: Positive for fatigue. Negative for appetite change, chills, fever and unexpected weight change. HENT: Negative for congestion, sore throat and trouble swallowing. Respiratory: Positive for cough. Negative for shortness of breath and wheezing. Cardiovascular: Negative for chest pain, palpitations and leg swelling. Gastrointestinal: Negative for abdominal pain, blood in stool, constipation, diarrhea, nausea and vomiting. Genitourinary: Negative for dysuria, frequency and hematuria. Musculoskeletal: Positive for arthralgias, back pain and gait problem. Neurological: Positive for tremors and weakness. Negative for dizziness, syncope and headaches. Psychiatric/Behavioral: Positive for sleep disturbance. Negative for confusion, decreased concentration and hallucinations. The patient is nervous/anxious. PHYSICAL EXAM: BP 118/60 | Pulse 74 | Temp 36 C (96.8 F) (Tympanic) | Resp 16 | Ht 1.651 m (5' 5") | Wt 71.8 kg (158 lb 4.8 oz) | SpO2 99% | BMI 26.34 kg/m | BSA 1.81 m Physical Exam Vitals and nursing note [...] Left lower leg: No edema. Skin: Comments: Erythema and induration of right 1st toe distal phalanx Neurological: Mental Status: She is alert. Motor: No weakness. Gait: Gait normal. Comments: MMSE 26/30 Psychiatric: Mood and Affect: Mood is anxious. Cognition and Memory: Cognition is impaired. She exhibits impaired recent memory. ASSESSMENT/PLAN Bronchitis due to COVID-19 virus (Primary) Resolving Cellulitis of right toe - Start Doxycycline Hyclate 100 MG Oral Capsule; Take 1 Capsule by mouth in the morning and 1 Capsule before bedtime. Do all this for 7 days. Take for 7 days. Type 2 diabetes mellitus with stage 3b chronic kidney disease, without long-term current use of insulin (HCC) - HEMOGLOBIN A1C; Future; Expected date: 04/27/2024 - HEMOGLOBIN A1C Diet controlled DM 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 (HCC) Continue ASA Paroxysmal atrial fibrillation (HCC) - COMPREHENSIVE METABOLIC PANEL; Future; Expected date: 04/27/2024 - CBC WITH WBC DIFFERENTIAL; Future; Expected date: 04/27/2024 S/P Watchman Continue Metoprolol ER Secondary hyperparathyroidism, renal (HCC) - PTH - 25-HYDROXY VITAMIN D Pulmonary hypertension (HCC) Acquired hypothyroidism - TSH WITH FREE T4 IF INDICATED; Future; Expected date: 04/27/2024 - TSH WITH FREE T4 IF INDICATED Continue Levothyroxine 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 claudication Continue Duragesic, and Oxycodone Tremor Memory loss - MINI-MENTAL QUESTIONNAIRE SCAN (MMSE) OP - ADULT NEUROLOGY REFERRAL OP MMSE 26/30 Pure hypercholesterolemia - COMPREHENSIVE METABOLIC PANEL; Future; Expected date: 04/27/2024 - LIPID PANEL WITH DIRECT LDL IF TG IS HIGH; Future; Expected date: 04/27/2024 - LIPID PANEL WITH DIRECT LDL IF TG IS HIGH Continue Atorvastatin Cardiac pacemaker in situ Closed wedge compression fracture of T12 vertebra with routine healing, subsequent encounter Continue Duragesic, and Oxycodone X-rays as ordered Normocytic anemia Severe tricuspid regurgitation Atherosclerosis of [place] coronary artery of yankton heart without angina pectoris Continue ASA, and Metoprolol ER S/P mitral valve clip implantation Presence of Watchman left atrial appendage closure device Chronic obstructive pulmonary disease, unspecified COPD type (HCC) History of TIA (transient ischemic attack) Need for prophylactic vaccination and inoculation against influenza - INFLUENZA VAC., TRIVALENT, HD, PF, 65 AND ABOVE, 0.5 ML IM (FLUZONE HD) Hospital discharge follow-up - DISCH MED RECON CUR MED LIS Stage 3b chronic kidney disease (HCC) - PTH - 25-HYDROXY VITAMIN D - PHOSPHORUS Hyperuricemia - URIC ACID Iron deficiency anemia, unspecified iron deficiency anemia type - CBC WITH WBC DIFFERENTIAL Chronic kidney disease, stage 3b (HCC) - COMPREHENSIVE METABOLIC PANEL Follow Up: Return in about 1 week (around 05/04/2024), or if symptoms worsen or fail to improve. Grey Calvo DO * Hilda Awad LPN - 04/27/2024 2:13 PM EDT PRE - ADMINISTRATION DOCUMENTATION Are you experiencing any cold symptoms or fever? No Have you had Guillain-[place] Syndrome (an illness that causes paralysis) within the last 6 weeks? No Have you had the flu shot in the past? YES Have you ever had a reaction to the flu shot? No Hilda Awad LPN, 04/27/2024 2:13 PM Immunization Administration Documentation Time Out Procedure Performed: Yes Patient Identified (Ask Name/Date of ): Yes Does the patient have a fever greater than 101 degrees today? No Patient allergic to latex? No VFC Stock: No Immunization(s) verified: Yes, Immunization Name: Flu, VIS Sheet(s) given: Yes Verified Side and Site: Yes Verified Shot(s) with Parent(s)/Patient: Yes documented in this encounter Nursing Notes * Hilda Awad LPN - 04/27/2024 2:12 PM EDT Here for hospital follow up, states feels well. Please check right great toe. Had ingrown toenail that was taken care of by podiatry. Started worsening last couple of weeks. documented in this encounter Miscellaneous Notes * Result Encounter Note - Hilda Awad LPN - 04/28/2024 1:15 PM EDT See telephone encounter. * Addendum Note - Grey Calvo DO - 04/27/2024 3:55 PM EDTAddended by: GREY CALVO on: 04/27/2024 03:55 PM Modules accepted: Orders documented in this encounter Plan of Treatment Upcoming Encounters Date Type Department Care Team (Late st Contact Info) Description 05/04/2024 3:30 PM EDT Office Visit Hematology/Oncolog y [facility] [address] [facility] [phone] Nereyda Metz CRNP [address] [facility] [place] [address] 05/05/2024 11:40 AM EDT Office Visit Family Practice [address] [facility] [place] [address] [facility] [phone] [facility] [address] [facility] [address] 05/06/2024 10:00 AM EDT Scheduled Telephone [facility], [address] [place] [address] Coordinator, [facility] [address] [place] [address] 05/06/2024 4:00 PM EDT Home Visit [facility], [facility] [address] [place] [address] Nikolay Wu, RN [address] [place] [address] 05/18/2024 1:20 PM EDT Office Visit Neurology [facility] [address] [facility] [place] [address] Carmenza Colon PA-C [address] [place] [address] 05/21/2024 12:46 PM EDT Hospital Encounter OR [facility], Operating Room, [facility] - 4th Floor [address] [place] [phone] Jana Vieira, DO [address] [place] [address] 05/21/2024 12:46 PM EDT - 05/21/2024 1:31 PM EDT Surgery OR [facility], Operating Room, [facility] - 4th Floor [address] [place] [phone] Jana Vieira, DO [address] [place] [address] COLONOSCOPY FLEXIBLE PROXIMAL DIAGNOSTIC 06/03/2024 2:15 PM EDT Office Visit Ophthalmology, [facility] [address] [place] [address] Wilbur Benavides, DO [address] [facility] [place] [address] 06/09/2024 8:50 AM EDT Office Visit Vascular Surgery, [facility] [address] [place] [address] Aj Sahni MD [address] [place] [address] 07/01/2024 2:30 PM EST Office Visit Gastroenterology, [facility] [address] [place] [address] Lacy Ronquillo CRNP 132 [place] [address] 07/09/2024 1:00 PM EST Office Visit Nephrology, [facility] [address] [place] [facility] [place] [address] ZeMichelle chiu PA-C [address] [place] [address] 07/27/2024 1:00 PM EST Office Visit Family Practice [facility] [address] [place] [address] Grey Calvo, [address] [place] [address] 08/09/2024 1:00 PM EST Nurse Only Ancillary [address] [address] College, Nurse Annual Wellness Visit [address] [address] Scheduled Orders Name Type Priority Associated Diagnoses Orde r Schedule COMPREHENSIVE METABOLIC PANEL Lab Routine Paroxysmal atrial fibrillation (HCC) Pure hypercholesterolemia Expected: 04/27/2024 (Approximate), Expires: 04/27/2025 CBC WITH WBC DIFFERENTIAL Lab Routine Paroxysmal atrial fibrillation (HCC) Expected: 04/27/2024 (Approximate), Expires: 04/27/2025 Scheduled Procedures Name Priority Associated Diagnoses Date/Ti me COLONOSCOPY FLEXIBLE PROXIMA L DIAGNOSTIC Diarrhea, unspecified type History of diverticulitis 05/21/2024 12:46 PM EDT ESOPHAGOGASTRODUODENOSCOPY ( EGD), FLEXIBLE, TRANSORAL, DIAGNOSTIC Diarrhea, unspecified type History of diverticulitis 05/21/2024 12:46 PM EDT Scheduled Referrals Name Type Priority Associated Diagnoses Orde r Schedule ADULT NEUROLOGY REFERRAL OP Referral Within 10 days (routine) Memory loss Ordered: 04/27/2024 Health Maintenance Due Date Last Done Comments [...] Additional history exists CKD HGB USE SMARTSET 79076 04/27/202504/27, 04/27/2024, 03/30/2024, Additional history exists CKD PHOS USE SMARTSET 23502 04/27/2025 09/0 10/2023, 08/19/2023, 05/01/2022, Additional history [...] this encounter Medical Devices Implanted Type Area Food Sanitarian Device Identifier Shelf Expiration Date Model / Serial / Lot Cath Thermodilution 6fr - [id number] Implanted:Qty: 1 on 01/24/2023 by Wilbur Rivera MD at [facility] [employer] [id number] 10/15/2024 [id number] / / [id number] Clip Delivery Sytem G4 Xt - [id number] Implanted:Qty: 1 on 03/10/2023 at [facility] [employer] [id number] 04/15/2023 [id number] / / [id number] Clip Delivery Sytem G4 Xtw - [id number] Implanted:Qty: 1 on 03/10/2023 at [facility] [id number] 12/06/2023 [id number] / / [id number] Mirtaclip G4 - [id number] Implanted:Qty: 1 on 03/10/2023 at [facility] [place] 11/19/2023 [id number] / / [id number] Device Watchman Flx 31mm - [id number] Implanted:Qty: 1 on 07/31/2023 by Wilbur Rivera MD at [facility] imagoo : INTRV CARD [id number] 12/02/2025 [id number] / [id number] documented as of this encounter Procedures Procedure Name Priority Date/Time Associated Diagnosis Comments DIFFERENTIAL, AUTOMATED Routine 04/27/2024 3:35 PM EDT Iron deficiency anemia, unspecified iron deficiency anemia type TSH WITH FREE T4 IF INDICATED Routine 04/27/2024 3:35 PM EDT Acquired hypothyroidism LIPID PANEL WITH DIRECT LDL IF TG IS HIGH Routine 04/27/2024 3:35 PM EDT Pure hypercholesterolemia 25-HYDROXY VITAMIN D Routine 04/27/2024 3:35 PM EDT Stage 3b chronic kidney disease (HCC) Secondary hyperparathyroidism, renal (HCC) HEMOGLOBIN A1C Routine 04/27/2024 3:35 PM EDT Type 2 diabetes mellitus with stage 3b chronic kidney disease, without long-term current use of insulin (HCC) COMPREHENSIVE METABOLIC PANEL STAT 04/27/2024 3:35 PM EDT Chronic kidney disease, stage 3b (HCC) CBC Routine 04/27/2024 3:35 PM EDT Iron deficiency anemia, unspecified iron deficiency anemia type PHOSPHORUS Routine 04/27/2024 3:35 PM EDT Stage 3b chronic kidney disease (HCC) PTH Routine 04/27/2024 3:35 PM EDT Stage 3b chronic kidney disease (HCC) Secondary hyperparathyroidism, renal (HCC) CBC Routine 04/27/2024 3:35 PM EDT Iron deficiency anemia, unspecified iron deficiency anemia type URIC ACID Routine 04/27/2024 3:35 PM EDT Hyperuricemia MINI-MENTAL QUESTIONNAIRE SCAN (MMSE) OP Routine 04/27/2024 Memory loss documented in this encounter Results * (ABNORMAL) DIFFERENTIAL, AUTOMATED (04/27/2024 3:35 PM EDT) WBC 11.62(H) 4.00 - 10.80 K/uL 04/27/2024 11:18 PM EDT [facility] Neutrophils % 71.5 40.0 - 75.0 % 04/27/2024 11:18 PM EDT [facility] Lymphocytes % 13.3(L) 18.0 - 42.0 % 04/27/2024 11:18 PM EDT [facility] Monocytes % 10.0 1.0 - 11.0 % 04/27/2024 11:18 PM EDT [facility] Eosinophils % 4.3 0.0 - 6.0 % 04/27/2024 11:18 PM EDT [facility] Basophils % 0.6 0.0 - 2.0 % 04/27/2024 11:18 PM EDT [facility] Immature Granulocytes % 0.3 0.0 - 2.0 % 04/27/2024 11:18 PM EDT [facility] Absolute Neutrophils 8.31(H) 1.80 - 7.70 K/uL 04/27/2024 11:18 PM EDT [facility] Absolute Lymphocytes 1.54 1.00 - 4.80 K/ul 04/27/2024 11:18 PM EDT [facility] Absolute Monocytes 1.16(H) 0.00 - 1.10 K/uL 04/27/2024 11:18 PM EDT [facility] Absolute Eosinophils 0.50 0.00 - 0.70 K/uL 04/27/2024 11:18 PM EDT [facility] Absolute Basophils 0.07 0.00 - 0.20 K/uL 04/27/2024 11:18 PM EDT [facility] Absolute Immature Granulocytes 0.04 0.00 - 0.20 K/uL 04/27/2024 11:18 PM EDT [facility] Blood Venous blood specimen / Unknown Venipuncture / Unknown 04/27/2024 3:35 PM EDT 04/27/2024 3:35 PM EDT Nereyda MERCADO LAB BLOOD ORDER [facility] [address] [place] [address] * (ABNORMAL) CBC (04/27/2024 3:35 PM EDT) WBC 11.62(H) 4.00 - 10.80 K/uL 04/27/2024 11:18 PM EDT [facility] RBC 3.52 3.85 - 5.15 M/uL 04/27/2024 11:18 PM EDT [facility] HGB 10.8(L) 12.0 - 15.3 g/dL 04/27/2024 11:18 PM EDT [facility] HCT 35.4(L) 36.0 - 45.2 % 04/27/2024 11:18 PM EDT [facility] MCV 100.6 81.5 - 97.5 fL 04/27/2024 11:18 PM EDT [facility] MCH 30.7 27.0 - 34.0 pg 04/27/2024 11:18 PM EDT LABORATORY GM MCHC 30.5 32.0 - 36.0 g/dL 04/27/2024 11:18 PM EDT [facility] RDW 17.2 11.5 - 15.5 % 04/27/2024 11:18 PM EDT [facility] PLT 245 140 - 400 K/uL 04/27/2024 11:18 PM EDT LABORATORY [facility] MPV 11.3 6.6 - 11.1 fL 04/27/2024 11:18 PM EDT LABORATORY GM nRBCs 0 <=0 /100 WBCs 04/27/2024 11:18 PM EDT LABORATORY [facility] Blood Venous blood specimen / Unknown Venipuncture / Unknown 04/27/2024 3:35 PM EDT 04/27/2024 3:35 PM EDT Nereyda MERCADO LAB BLOOD ORDER [facility] [address] [place] [address] * (ABNORMAL) COMPREHENSIVE METABOLIC PANEL (04/27/2024 3:35 PM EDT) BUN 38(H) 6 - 20 mg/dL 04/28/2024 3:38 AM EDT [facility] Creatinine 1.7(H) 0.5 - 1.0 mg/dL 04/28/2024 3:38 AM EDT [facility] Estimated Glomerular Filtration Rate 29(L) >=60 mL/min 04/28/2024 3:38 AM EDT [facility] Comment:eGFR is calculated b ased on the CKD-EPI 2020 equation. Sodium 139 135 - 146 mmol/L 04/28/2024 3:38 AM EDT [facility] Potassium 4.4 3.5 - 5.1 mmol/L 04/28/2024 3:38 AM EDT [facility] Chloride 103 98 - 107 mmol/L 04/28/2024 3:38 AM EDT [facility] CO2 24 22 - 32 mmol/L 04/28/2024 3:38 AM EDT [facility] Anion Gap 12 7 - 15 mmol/L 04/28/2024 3:38 AM EDT [facility] Glucose 113 70 - 120 mg/dL 04/28/2024 3:38 AM EDT [facility] Albumin 4.2 3.8 - 5.0 g/dL 04/28/2024 3:38 AM EDT [facility] AST 38(H) 10 - 35 U/L 04/28/2024 3:38 AM EDT [facility] Alkaline Phosphatase 223(H) 35 - 130 U/L 04/28/2024 3:38 AM EDT [facility] Bilirubin, Total 0.4 <=1.2 mg/dL 04/28/2024 3:38 AM EDT [facility] Calcium 9.5 8.4 - 10.2 mg/dL 04/28/2024 3:38 AM EDT [facility] Protein 6.6 6.0 - 8.3 g/dL 04/28/2024 3:38 AM EDT [facility] ALT 22 10 - 35 U/L 04/28/2024 3:38 AM EDT [facility] Blood Venous blood specimen / Unknown Venipuncture / Unknown 04/27/2024 3:35 PM EDT 04/27/2024 3:35 PM EDT Nereyda MERCADO LAB BLOOD ORDER [facility] [address] [place] [address] * URIC ACID (04/27/2024 3:35 PM EDT) Uric Acid 5.0 2.4 - 5.7 mg/dL 04/28/2024 3:38 AM EDT LABORATORY C Blood Venous blood specimen / Unknown Venipuncture / Unknown 04/27/2024 3:35 PM EDT 04/27/2024 3:35 PM EDT Michelle REALC LAB BLOOD ORD ERABLES Performing Organization Address City/[facility]/ZIP Co de Phone Number LABORATORY [facility] [address] [place] [address] * PHOSPHORUS (04/27/2024 3:35 PM EDT) Phosphorus 4.2 2.5 - 4.8 mg/dL 04/28/2024 3:38 AM EDT LABORATORY [facility] Blood Venous blood specimen / Unknown Venipuncture / Unknown 04/27/2024 3:35 PM EDT 04/27/2024 3:35 PM EDT Michelle Ivy PA-C LAB BLOOD ORD ERABLES Performing Organization Address City/[facility]/ZIP Co de Phone Number LABORATORY [facility] [address] [place] [address] * 25-HYDROXY VITAMIN D (04/27/2024 3:35 PM EDT) 25-Hydroxy Vitamin D 50 >19 ng/mL 04/28/2024 4:13 AM EDT LABORATORY [facility] Blood Venous blood specimen / Unknown Venipuncture / Unknown 04/27/2024 3:35 PM EDT 04/27/2024 3:35 PM EDT Narrative LABORATORY [facility] - 04/28/2024 4:13 AM EDT Deficient: <20 ng/mL Insufficient: 20-29 ng/mL Recommended/Optimum:30-50 ng/mL Vitamin D intoxication is rare. If suspicious of Vitamin D toxicity, evaluation of serum Calcium and PTH is recommended. Michelle Ivy PA-C LAB BLOOD ORD ERABLES Performing Organization Address City/[facility]/ZIP Co de Phone Number LABORATORY [facility] [address] [place] [address] * (ABNORMAL) PTH (04/27/2024 3:35 PM EDT) PTH 97(H) 15 - 65 pg/mL 04/28/2024 4:13 AM EDT LABORATORY [facility] Blood Venous blood specimen / Unknown Venipuncture / Unknown 04/27/2024 3:35 PM EDT 04/27/2024 3:35 PM EDT Michelle JOHN-Shonna LAB BLOOD ORD ERABLES Performing Organization Address [facility]/ZIP Co de Phone Number LABORATORY [facility] [address] [place] [address] * LIPID PANEL WITH DIRECT LDL IF TG IS HIGH (04/27/2024 3:35 PM EDT) Triglycerides 145 <=174 mg/dL 04/28/2024 3:38 AM EDT LABORATORY [facility] Comment: Triglyceride Reference Ranges (mg/dL): <150 Acceptable 150-174 Borderline high 175-499 High >=500 Very high Cholesterol 122 <200 mg/dL 04/28/2024 3:38 AM EDT LABORATORY [facility] Comment: Total Cholesterol Reference Ranges (mg/dL): <200 Desirable 200-239 Borderline high >=240 High HDL Cholesterol 53 >49 mg/dL 3:38 AM EDT LABORATORY [facility] Comment: HDL Cholesterol Reference Ranges (mg/dL): >=60 High (Desirable) <50 Low (Undesirable) For Females <40 Low (Undesirable) For Males Non-HDL Cholesterol 69 <=159 mg/dL 04/28/2024 3:38 AM EDT LABORATORY [facility] Comment: Non-HDL Cholesterol Reference Range (mg/dL): <100 Target level for high risk ASCVD patient <130 Optimal for general population 130-159 Near optimal for general population 160-189 Borderline High 190-219 High >=220 Very High LDL Cholesterol 40 <=129 mg/dL 04/28/2024 3:38 AM EDT LABORATORY [facility] Comment: LDL Cholesterol Reference Ranges (mg/dL): <70 Target level for high risk ASCVD patient <100 Optimal for general population 100-129 Near optimal for general population 130-159 Borderline high 160-189 High >=190 Very high Blood Venous blood specimen / Unknown Venipuncture / Unknown 04/27/2024 3:35 PM EDT 04/27/2024 3:35 PM EDT Grey Calvo DO LAB BLOOD ORDERABLES Performing Organization Address City/[facility]/ZIP Co de Phone Number LABORATORY [address] [address] * TSH WITH FREE T4 IF INDICATED (04/27/2024 3:35 PM EDT) TSH 0.68 0.27 - 4.20 uIU/mL 04/28/2024 4:13 AM EDT LABORATORY [facility] Blood Venous blood specimen / Unknown Venipuncture / Unknown 04/27/2024 3:35 PM EDT 04/27/2024 3:35 PM EDT Grey Calvo DO LAB BLOOD ORDERABLES Performing Organization Address [facility] Co de Phone Number LABORATORY [place] [address] [place] [address] * (ABNORMAL) HEMOGLOBIN A1C (04/27/2024 3:35 PM EDT) Hemoglobin A1C 6.7(H) 4.0 - 5.6 % 04/28/2024 2:19 AM EDT LABORATORY [facility] Comment:The use of HbA1c to monitor glycemic status is based on normal hemoglobin and HbA composition. This test should not be used in patients with abnormal hemoglobin that affects the half life of the red blood cell or the in vivo glycation rates. Estimated Average Glucose 146(H) <126 mg/dL 04/28/2024 2:19 AM EDT LABORATORY [facility] Blood Venous blood specimen / Unknown Venipuncture / Unknown 04/27/2024 3:35 PM EDT 04/27/2024 3:35 PM EDT Grey Calvo DO LAB BLOOD ORDERABLES LABORATORY [facility] [address] [place] [address] * MINI-MENTAL QUESTIONNAIRE SCAN (MMSE) OP (04/27/2024) Narrative Awad Hilda LopezSLIME - 04/27/2024 Grey Calvo DO OTHER documented in this encounter Visit Diagnoses Diagnosis Bronchitis due to COVID-19 virus- Primary Cellulitis of right toe Type 2 diabetes mellitus with stage 3b chronic kidney disease, without long-term current use of insulin (HCC) 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 (HCC) Paroxysmal atrial fibrillation (HCC) Atrial fibrillation Secondary hyperparathyroidism, renal (HCC) Secondary hyperparathyroidism (of renal origin) Pulmonary hypertension (HCC) Other chronic pulmonary heart diseases Acquired hypothyroidism Unspecified hypothyroidism 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 claudication Spinal stenosis, lumbar region, without neurogenic claudication Tremor Abnormal involuntary movements Memory loss Pure hypercholesterolemia Cardiac pacemaker in situ Closed wedge compression fracture of T12 vertebra with routine healing, subsequent encounter Normocytic anemia Anemia, unspecified Severe tricuspid regurgitation Diseases of tricuspid valve Atherosclerosis of [place] coronary artery of [place] heart without angina pectoris S/P mitral valve clip implantation Presence of Watchman left atrial appendage closure device Chronic obstructive pulmonary disease, unspecified COPD type (HCC) History of TIA (transient ischemic attack) Transient ischemic attack (TIA), and cerebral infarction without residual deficits Need for prophylactic vaccination and inoculation against influenza Hospital discharge follow-up Other follow-up examination Stage 3b chronic kidney disease (HCC) Hyperuricemia Other abnormal blood chemistry Iron deficiency anemia, unspecified iron deficiency anemia type Chronic kidney disease, stage 3b (HCC) Diarrhea, unspecified type History of diverticulitis documented in this encounter Advance Directives Documents on File Type Date Recorded Patient Behavioral Health Tech Expl anation Advance Directives and Living Will 11/29/2022 ADVANCE DIRECTIVE / LIVING WILL Power of Principal Planner 11/29/2022 POWER OF A TTORNEY Advance Directives and Living Will 10/24/2014 ADVANCE DIRECTIVE / LIVING WILL Power of Principal Planner 10/24/2014 POWER OF A TTORNEY * Full [...] the patient have Health Care Power of Principal Planner? No * No Code Date Activated Date [...] Agents on File Name Relationship Healthcare Agent [facility] p Communication Bright [facility] Adult Child Health Care Frieda t (per Health Care Power of Principal Planner document) Care Teams Retail Maintenance Technician Relationship Specialty Start Date End Date Grey Calvo DO [address] [facility] [address] PCP - General Internal Medicine 02/06/24 documented as of this encounter
--- OUTSIDE RECORDS SUMMARY | 2024-05-14 04:35 | External Medical Summary | Summary of Care ---
Author Name Unknown Organization [facility] Address [address] [place] [address] Phone [phone] Care Team Providers Care Gravity Prospecting Operator Name Role Phone Florentin Calvo DO Primary Care Provider [phone] Reason for Visit * Reason Onset Date Comments Appointment 05/03/[address] Mays in pulmonary Encounter Details Date Type Department Care Team (Late st Contact Info) Description 05/03/2024 Telephone Pulmonary Medicine, [address] [address] [facility]ays [facility] [address] [facility] [address] App[facility] (With Dr Mays in pulmonary ) Allergies Active Allergy Reactions Criticality Noted Date [...] as of this encounter (statuses as of 05/03/2024) Medications Medication Sig Dispensed Refills Start Date End Date Status Spot Mobile InternationalTouch Verio w/Device KitIndications:Type 2 diabetes mellitus with hemoglobin A1c goal of less than 7.0% ([facility]) Use up to 1 times a [...] (Lipitor)Indications :PVD (peripheral vascular disease) ([facility]),Type 2 diabetes mellitus with stage 3a chronic kidney disease and hypertension ([facility]) TAKE ONE TABLET BY MOUTH EVERY DAY DIRECTED 100 Tablet 3 03/31/2023 Active Ipratropium [place] 0.03 % Nasal Solution (Atrovent)Indication s:Chronic rhinitis Administer 2 Sprays into nostril in the morning and 2 Sprays before bedtime. 90 mL 3 04/01/2023 Active Allopurinol 300 MG Oral Tablet (Zyloprim) Take 1 Tablet by mouth at bedtime. 90 Tablet 3 05/16/2023 Active Tiotropium [place]-Olodaterol 2.5-2.5 MCG/ACT Inhalation Aerosol Solution (Stiolto [...] 24 Hour (toPROL XL)Indications:Parox ysmal atrial fibrillation ([facility]) Take 1 Tablet by mouth in [...] (Demadex)Indications :Chronic diastolic CHF (congestive heart failure) ([facility]) Take 2 Tablets by mouth in the morning. 200 Tablet 3 02/24/2024 Active Polyethylene Glycol 3350 17 GM/SCOOP Oral Powder (MiraLax) Take 17 g by mouth in the morning and 17 g before bedtime. Dissolve one heaping tablespoon in 8 ounces of water or juice.. 03/12/2024 Active Naloxone HCl 4 MG/0.1ML NA LIQD FOR CAREGIVERIndications :Compression fracture of T12 vertebra, initial encounter (HCC) Administer 1 spray into 1 nostril for suspected opioid overdose. Seek immediate medical attention. [email or web address] 1 Each 3 03/16/2024 03/16/2025 Active Levothyroxine [...] of T12 vertebra, initial encounter ([facility]) Place 1 Patch over 72 hours [...] as of this encounter (statuses as of 05/03/2024) Active Problems Problem Noted Date Diagnosed Date Closed wedge compression fracture of T12 vertebr a 03/12/2024 Last Assessment & Plan: Increased oxy from 2.5mg to 5mg t9nicci prn Ortho spine ref, ?kyphoplasty Constipation 03/12/2024 [...] mitral valve clip implantation 03/06/2023 Atherosclerosis of ione 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 02/13/2023 [...] Obstructive sleep apnea of adult 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 No-QAGAN TAYAGUNGIN can hear w/ hearing aid 03/07/2023 Are [...] Telephone Encounter - Aminata High, RADHA - 05/03/2024 4:30 PM EDT FYI: Called pt's son to schedule return apt with Dr Mays, he declined to schedule. [facility] pt is doing well and PCP is prescribing medications. documented in this encounter Plan of Treatment Upcoming Encounters Date Type Department Care Team (Late st Contact Info) Description 05/04/2024 3:30 PM EDT Office Visit Hematology/Oncolog y [facility] Osorio [address] [place] [address] Nereyda Metz CRNP [address] [place] [place] [address] 05/05/2024 11:40 AM EDT Office Visit Family Practice [address], [place] [address] [facility], [place] [address] Florentin Calvo, DO [address] [facility], [place] [address] 05/06/2024 10:00 AM EDT Scheduled Telephone [facility] [address] [facility] [place] [address] Coordinator, [facility] [address] [facility] [place] [address] 05/06/2024 4:00 PM EDT Home Visit [facility], [facility] [address] [facility] [place] [address] Nikolay Wu, AISHA [address] [facility] [place] [address] 05/18/2024 1:20 PM EDT Office Visit Neurology [facility] [address] [facility] [place] [address] Carmenza Colon PA-C [address] [facility] [address] 05/21/2024 12:46 PM EDT Hospital Encounter OR GL, Operating Room, [facility] - 4th Floor [address] [place] [phone] Jana Vieira, DO [address] [place] [address] 05/21/2024 12:46 PM EDT - 05/21/2024 1:31 PM EDT Surgery OR [facility], Operating Room, [facility] - 4th Floor [address] [place] [phone] Jana Vieira, DO [address] [facility] [place] [address] COLONOSCOPY FLEXIBLE PROXIMAL DIAGNOSTIC 06/03/2024 2:15 PM EDT Office Visit Ophthalmology, [facility] [address] [facility] [address] Wilbur Benavides, DO [address] [facility] [place] [address] 06/09/2024 8:50 AM EDT Office Visit Vascular Surgery, [facility] [address] [facility] [address] Aj Sahni MD [address] [place] [address] 07/01/2024 2:30 PM EST Office Visit Gastroenterology, [facility] [address] [facility] [address] Lacy Ronquillo CRNP [address] [facility] [place] [address] 07/09/2024 1:00 PM EST Office Visit Nephrology, [facility] [address] [facility] [address] Zemaitis, Michelle Amezquita PA-C [address] [facility] [address] 07/27/2024 1:00 PM EST Office Visit Family Practice [address] [facility] [address] [place] [phone] Florentin Calvo, DO [address] [place] [address] 08/09/2024 1:00 PM EST Nurse Only Ancillary [address] [facility] [address] [place] [address] College, Nurse Annual Wellness Visit [address] [facility], [place] [address] Scheduled Procedures Name Priority Associated Diagnoses Date/Ti [...] Additional history exists CKD PHOS USE SMARTSET 44338 04/27/2025 09/0 10/2023, 08/19/2023, 05/01/2022, Additional history exists TSH 04/27/2025 04/27/2024, 02/23, 03/15/2024, Additional history exists CKD HGB USE SMARTSET 81184 05/01/202505/01, 05/01/2024, 04/27/2024, Additional history exists DXA [...] encounter Medical Devices Implanted Type Area Inspector Fibrous Wallboard Device Identifier Shelf Expiration Date Model / Serial / Lot Cath Thermodilution 6fr - [id number] Implanted:Qty: 1 on 01/24/2023 by Wilbur Rivera MD at [facility] [employer] [id number] 10/15/2024 [id number] / / [id number] Clip Delivery Sytem G4 Xt - [id number] Implanted:Qty: 1 on 03/10/2023 at [facility] [id number] 04/15/2023 [id number] / / [id number] Clip Delivery Sytem G4 Xtw - [id number] Implanted:Qty: 1 on 03/10/2023 at [facility] [employer] [id number] 12/06/2023 [id number] / / [id number] Mirtaclip G4 - [id number] Implanted:Qty: 1 on 03/10/2023 at [facility] [employer] 11/19/2023 [id number] / / [id number] Device Watchman Flx 31mm - [id number] Implanted:Qty: 1 on 07/31/2023 by Wilbur Rivera MD at [facility] : INTRV CARD [id number] 12/02/2025 [id number] documented as of this encounter Advance Directives Documents on File Type Date Recorded Patient Rejoiner Expl anation Advance Directives and Living Will 11/29/2022 ADVANCE DIRECTIVE / LIVING WILL Power of Plastics Fabricator 11/29/2022 POWER OF A TTORNEY Advance Directives and Living Will 10/24/2014 ADVANCE DIRECTIVE / LIVING WILL Power of Plastics Fabricator 10/24/2014 POWER OF A TTORNEY * Full [...] the patient have Health Care Power of Plastics Fabricator? No * No Code Date Activated Date [...] Agen t (per Health Care Power of Plastics Fabricator document) Care Teams Gravity Prospecting Operator Relationship Specialty Start Date End Date Florentin Calvo DO [address] [place] [address] PCP - General Internal Medicine 02/06/24 documented as of this encounter
--- OUTSIDE RECORDS SUMMARY | 2024-05-14 04:36 | External Medical Summary | Summary of Care ---
Author Name Unknown Organization [facility] Address [address] [place] [address] Phone [phone] Care Team Providers Care Strategic Intelligence Officer Name Role Phone Florentin Calvo DO Primary Care Provider [phone] Encounter Details Date Type Department Care Team (Late st Contact Info) Description 04/22/2024 Orders Only PATIENT PORTAL DO NOT DELETE THIS DEPT USED BY DORA MCKEON [id number] Allergies Active Allergy Reactions Criticality Noted Date [...] as of this encounter (statuses as of 04/22/2024) Medications Medication Sig Dispensed Refills Start Date End Date Status 5min Media w/Device KitIndications:Type 2 diabetes mellitus with hemoglobin A1c goal of less than 7.0% ([facility]) Use up to 1 times [...] for Wheezing. 15 g 12 06/13/2022 Active TechTol ImagingToBrand.net In Vitro Strip (Glucose Blood) Test blood sugars up to 2 times a day E11.9 200 Strip 3 12/20/2022 Active Atorvastatin Calcium 20 MG Oral Tablet (Lipitor)Indications :PVD (peripheral vascular disease) ([facility]),Type 2 diabetes mellitus with stage 3a chronic kidney disease and hypertension ([facility]) TAKE ONE TABLET BY MOUTH EVERY DAY DIRECTED 100 Tablet 3 03/31/2023 Active Ipratropium [place] 0.03 % Nasal Solution (Atrovent)Indication s:Chronic rhinitis Administer 2 Sprays into nostril in the morning and 2 Sprays before bedtime. 90 mL 3 04/01/2023 Active Allopurinol 300 MG Oral Tablet (Zyloprim) Take 1 Tablet by mouth at bedtime. 90 Tablet 3 05/16/2023 Active Tiotropium [place]-Olodaterol 2.5-2.5 MCG/ACT Inhalation Aerosol Solution (Stiolto Respimat) [...] (Demadex)Indications :Chronic diastolic CHF (congestive heart failure) ([facility]) Take 2 Tablets by mouth [...] :Compression fracture of T12 vertebra, initial encounter ([facility]) Administer 1 spray into 1 nostril for suspected opioid overdose. Seek immediate medical attention. [email or web address]://[email or web address].com/[email or web address]?v=[email or web address] 1 Each 3 03/16/2024 5 Active Levothyroxine Sodium 175 MCG Oral Tablet [...] ression fracture of T12 vertebra, initial encounter ([facility]) Place 1 Patch over 72 hours topically on the skin every 3 days. For pain control. 10 Patch 04/19/2024 Active busPIRone HCl 5 MG Oral Tablet (Buspar) Take 1 Tablet by mouth in the morning and 1 Tablet before bedtime. 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 Last Assessment & Plan: Now just [...] as of this encounter (statuses as of 04/22/2024) Resolved Problems Problem Noted Date Diagnosed Date [...] as of this encounter (statuses as of 04/22/2024) Immunizations Name Administration Dates Next Due COVID-19 mRNA, LNP-s, No Pre serve, 2-Dose Series (Moderna) 06/23/2021,10/25/2020,09/28/2020 COVID-19, LNP-s, No Preserve , Larry-sucrose, Ages 12+ (Pfizer) 04/09/2022 COVID-19, MRNA-LNP, 23-24, P F, 30 MCG/0.3 mL, 12 YRS AND ABOVE, IM ([facility]) 06/09/2023 Covid-19, Mrna, Lnp-s, Pf, B ivalent, [...] 04/27/2024 2:00 PM EDT Pharmacy Family Practice [address] [place] [address] [address] [place] [address] College, Pharmacist [address] [place] [address] 04/27/2024 2:20 PM EDT Office Visit Family Practice [address] [place] [address] [address] [place] [phone] Florentin Calvo, DO [address] [place] [address] 05/04/2024 3:30 PM EDT Office Visit Hematology/Oncology [facility] [address] [place] [phone] Nereyda Metz CRNP [address] [place] [address] 05/05/2024 3:10 PM EDT Home Visit Care Coordination and Integration [address] [place] [address] Becky Green, Community Health Operations And Intelligence Assistant [address] [place] [address] 05/06/2024 10:00 AM EDT Scheduled Telephone [facility], [facility] [address] [place] [address] Coordinator, [facility] [address] [place] [address] 05/06/2024 4:00 PM EDT Home Visit [facility], [facility] [address] [place] [address] Nikolay Wu, AISHA [address] [place] [address] 05/21/2024 12:46 PM EDT Hospital Encounter OR [facility], Operating Room, [facility] - 4th Floor [address] [place] [phone] Jana Vieira, DO [address] [place] [address] 05/21/2024 12:46 PM EDT - 05/21/2024 1:31 PM EDT Surgery OR [facility], Operating Room, [facility] - 4th Floor [address] [place] [address] Jana Vieira, DO [address] [place] [address] COLONOSCOPY FLEXIBLE PROXIMAL DIAGNOSTIC 06/03/2024 2:15 PM EDT Office Visit [facility], [facility] [place] [address] Wilbur Benavides, DO [facility] [place] [address] 06/09/2024 8:50 AM EDT Office Visit Vascular Surgery, [facility] [address] [place] [address] Aj Sahni MD [facility] [address] 07/01/2024 2:30 PM EST Office Visit Gastroenterology, [facility] [place] [address] Lacy Ronquillo CRNP [address] [place] [address] 08/09/2024 1:00 PM EST Nurse Only Ancillary [facility] [address] [facility], [place] [address] College, Nurse Annual Wellness Visit 65 [facility] [address] [facility], [place] [address] Scheduled Procedures Name Priority Associated Diagnoses Date/Ti [...] COPD 07/31/2024 07/31/2023 CKD PHOS USE SMARTSET 10333 08/19/202407/26, 05/01/2022, 04/03/2022, Additional history exists Diabetic Foot Exam 09/15/2024 09/15/2023, 0 10/01/2022, 10/26/2021, Additional history exists Depression Monitoring 09/29/2024 09/29/2023 GFR 09/30/2024 03/30/2024, 02/23, 03/02/2024, Additional history exists Albumin/Creatinine Ratio 12/08/2024 024, 02/21/2023, 05/01/2022, Additional history exists TSH 03/15/2025 03/15/2024, 02/23, 12/08/2023, Additional history exists CKD HGB USE SMARTSET 66497 03/30/202503/30, 03/30/2024, 03/15/2024, Additional history exists DXA [...] this encounter Medical Devices Implanted Type Area Tour Bus Driver/Guide Device Identifier Shelf Expiration Date Model / Serial / Lot Cath Thermodilution 6fr - [id number] Implanted:Qty: 1 on 01/24/2023 by Wilbur Rivera MD at [facility] [employer] TERE [id number] 10/15/2024 [id number] / / [id number] Clip Delivery Sytem G4 Xt - [id number] Implanted:Qty: 1 on 03/10/2023 at [facility] [employer] FX [id number] 04/15/2023 [id number] / / [id number] Clip Delivery Sytem G4 Xtw - [id number] Implanted:Qty: 1 on 03/10/2023 at [facility] [employer] FX [id number] 12/06/2023 [id number] / / [id number] Mirtaclip G4 - [id number] Implanted:Qty: 1 on 03/10/2023 at [facility] [employer] 11/19/2023 [id number] / / [id number] Device Watchman Flx 31mm - [id number] Implanted:Qty: 1 on 07/31/2023 by Wilbur Rivera MD at [facility] [employer]OBOLABS : INTRV CARD [id number] 12/02/2025 [id number] / / [id number] documented as of this encounter Advance Directives Documents on File Type Date Recorded 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 No * No Code Date Activated Date [...] Frieda mcdowell (per Health Care Power of Vice President Of Development document) Care Teams Strategic Intelligence Officer Relationship Specialty Start Date End Date Florentin Calvo DO [address] [place] [place] [address] PCP - General Internal Medicine 02/06/24 documented as of this encounter
--- OUTSIDE RECORDS SUMMARY | 2024-05-14 04:36 | External Medical Summary ---
Author Name Unknown Address Unknown Organization K01:[facility] - [address] [facility] [address] Laboratory Report Ordering Provider Test Date Status PARVIZ ORR 04/27/2024 15:35:32 Final Observation Date Value Abnormality Reference (Units ) Status SYNC LEUKOCYTES IN BLOOD BY AUTOMATED COUNT 04/27/2024 15:35:32 11.62 Above high normal 4.00-10.80 (K/uL) Final Segs 04/27/2024 15:35:32 71.5 40.0-75.0 (%) Final Lymphs % 04/27/2024 15:35:32 13.3 Below low normal 18.0-42.0 (%) Final Monos 04/27/2024 15:35:32 10.0 1.0-11.0 (%) Final Eosinophils 04/27/2024 15:35:32 4.3 0.0-6.0 (%) Final Basos 04/27/2024 15:35:32 0.6 0.0-2.0 (%) Final Immature Granulocyte, Percent 04/27/2024 15:35:32 0.3 0.0-2.0 (%) Final Absolute Segs 04/27/2024 15:35:32 8.31 Above high normal 1.80-7.70 (K/uL) Final Lymphs, absolute 04/27/2024 15:35:32 1.54 1.00-4.80 (K/ul) Final Monos, Abs 04/27/2024 15:35:32 1.16 Above high normal 0.00-1.10 (K/uL) Final Eos, Abs 04/27/2024 15:35:32 0.50 0.00-0.70 (K/uL) Final Basos, Abs 04/27/2024 15:35:32 0.07 0.00-0.20 (K/uL) Final Immature Granulocytes, Number 04/27/2024 15:35:32 0.04 0.00-0.20 (K/uL) Final Performing Location [facility] - [facility] [address] [facility] [address]
--- OUTSIDE RECORDS SUMMARY | 2024-05-14 04:36 | External Medical Summary | Summary of Care ---
Author Name Unknown Organization [facility] Address [address] [place] [address] Phone [phone] Care Team Providers Care Roll Off Driver Name Role Phone Grey Calvo DO Primary Care Provider [phone] Reason for Referral * Evaluate & Treat - Unlimited Visits (Within 10 days (routine)) - Authorized Specialty Diagnoses / Procedures Referred By Danny mcdowell Referred To Contact Neurology Diagnoses Memory loss Grey Calvo DO [address] [place] [address] Referral ID Status Reason Start Date Expiration Date Visits Requested Visits Authorized [id number] Authorized Specialty Services Required 04/27/[phone] Question Answer Referral Priority Within 10 days (routine) Where should this appointment be scheduled? [facility] This patient already has care established with Neurology. Do not place this order. Please use Ask A Doc to expedite care. Acknowledge Is this referral being placed for insurance purposes ONLY No, patient needs appointment [facility] NEUROLOGY REFERRAL QUESTIONS Memory/Cognition Reason for Visit * Reason Onset Date Comments Follow Up Medication Administration 04/27/2024 Flu an d/or Pneumo Inj Hospital Follow-Up 04/27/2024 Encounter Details Date Type Department Care Team (Late st Contact Info) Description 04/27/2024 2:20 PM EDT Office Visit Family Practice [address] [place] [address] [place] [address] Grey Calvo, [address] [place] [address] Bronchitis due to COVID-19 virus*; Cellulitis of [...] Normocytic anemia; Severe tricuspid regurgitation; Atherosclerosis of seneca coronary artery of seneca heart without angina pectoris; S/P mitral valve [...] as of this encounter (statuses as of 04/27/2024) Medications Medication Sig Dispensed Refills Start Date End Date Status ExtraHop NetworksToGrowth Oriented Development Softwareio w/Device KitIndications:Type 2 diabetes mellitus with hemoglobin [...] DIRECTED 100 Tablet 3 3 Active Ipratropium [place] 0.03 % Nasal Solution (Atrovent)Indicatio ns:Chronic rhinitis Administer 2 Sprays into nostril in the morning and 2 Sprays before bedtime. 90 mL 3 3 Active Allopurinol 300 MG Oral Tablet (Zyloprim) Take 1 Tablet by mouth at bedtime. 90 Tablet 3 3 Active Tiotropium [place]-Olodaterol 2.5-2.5 MCG/ACT Inhalation Aerosol Solution (Stiolto Respimat) [...] suspected opioid overdose. Seek immediate medical attention. [email or web address]://[email or web address]/watch? [email or web address] 1 Each 3 4 03/16/20 25 Active [...] as of this encounter (statuses as of 04/27/2024) Active Problems Problem Noted Date Diagnosed Date Closed wedge compression fracture of T12 vertebr a 03/12/2024 Last Assessment & Plan: Increased oxy from 2.5mg to 5mg [id number] prn Ortho spine ref, ?kyphoplasty Constipation 03/12/2024 [...] mitral valve clip implantation 03/06/2023 Atherosclerosis of seneca 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 02/13/2023 [...] Obstructive sleep apnea of adult 09/09/2014 Overview: SOLE LAYER HAND Last Assessment & Plan: Now just using [...] as of this encounter (statuses as of 04/27/2024) Resolved Problems Problem Noted Date Diagnosed Date [...] as of this encounter (statuses as of 04/27/2024) Immunizations Name Administration Dates Next Due COVID-19 [...] or do you have serious difficulty hearing? No-KAW can hear w/ hearing aid 03/07/2023 Are [...] Recent Admission: Patient was recently admitted to [facility]. The date of discharge was 04/15/2024.Discharge report received and reviewed. 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 90 mL 3 Allopurinol 300 MG Oral Tablet (Zyloprim) Take 1 Tablet by mouth at bedtime. 90 Tablet 3 Tiotropium [place]-Olodaterol 2.5-2.5 MCG/ACT Inhalation Aerosol Solution (Stiolto Respimat) [...] suspected opioid overdose. Seek immediate medical attention. [email or web address]://[email or web address]/[email or web address]?v=[email or web address] 1 Each 3 No current facility-administered medications [...] Azithromycin Other (Please comment) QTC prolongation at [facility] Nickel Swelling Other reaction(s): Unknown OBJECTIVE: [...] Normocytic anemia Severe tricuspid regurgitation Atherosclerosis of seneca coronary artery of seneca heart without angina pectoris Continue ASA, and [...] symptoms or fever? No Have you had Guillain-Henrietta Syndrome (an illness that causes paralysis) within [...] 05/04/2024 3:30 PM EDT Office Visit Hematology/Oncology [facility] [address] [place] [address] Nereyda Metz CRNP [address] [place] [address] 05/05/2024 11:40 AM EDT Office Visit Family Practice [address] [place] [address] [address] [place] [address] Grey Calvo DO [address] [place] [address] 05/05/2024 3:10 PM EDT Home Visit Care Coordination and Integration [address] [place] [address] Becky Green, Community Health Rubber Mill Tender [address] [place] [address] 05/06/2024 10:00 AM EDT Scheduled Telephone [facility], [address] [place] [address] Coordinator, [facility] [address] [place] [address] 05/06/2024 4:00 PM EDT Home Visit [facility], [facility] [address] [place] [address] Nikolay Wu, AISHA [address] [place] [address] 05/18/2024 1:20 PM EDT Office Visit Neurology [facility] 200 [facility] [place] [address] Carmenza Colon PA-C 200 [facility] [place] [address] 05/21/2024 12:46 PM EDT Hospital Encounter OR [facility], Operating Room, [facility] - 4th Floor [address] [place] [address] Jana Vieira, DO [address] [place] [address] 05/21/2024 12:46 PM EDT - 05/21/2024 1:31 PM EDT Surgery OR [facility], Operating Room, [facility] - 4th Floor [address] [place] [place] [address] Jana Vieira, DO [address] [place] [address] COLONOSCOPY FLEXIBLE PROXIMAL DIAGNOSTIC 06/03/2024 2:15 PM EDT Office Visit Ophthalmology, [facility] [address] [place] [address] Wilbur Benavides, DO [facility] [place] [address] 06/09/2024 8:50 AM EDT Office Visit Vascular Surgery, [facility] [address] [facility] [place] [address] Aj Sahni MD [address] [place] [address] 07/01/2024 2:30 PM EST Office Visit Gastroenterology, [facility] 132 [facility] [place] [address] Lacy Ronquillo CRNP [address] [facility] [address] 07/27/2024 1:00 PM EST Office Visit Family Practice [address] [address] Grey Calvo, [address] [place] [address] 08/09/2024 1:00 PM EST Nurse Only Ancillary [address] [address] College, Nurse Annual Wellness Visit [address] [address] Pending Results Name Type Priority Associated Diagnoses Date /Time HEMOGLOBIN A1C Lab Routine Type 2 diabetes mellitus with stage 3b chronic kidney disease, without long-term current use of insulin (HCC) 04/27/2024 3:35 PM EDT TSH WITH FREE T4 IF INDICATED Lab Routine Acquired hypothyroidism 04/27/2024 3:35 PM EDT LIPID PANEL WITH DIRECT LDL IF TG IS HIGH Lab Routine Pure hypercholesterolemia 04/27/2024 3:35 PM EDT PTH Lab Routine Stage 3b chronic kidney disease (HCC) Secondary hyperparathyroidism, renal (HCC) 04/27/2024 3:35 PM EDT 25-HYDROXY VITAMIN D Lab Routine Stage 3b chronic kidney disease (HCC) Secondary hyperparathyroidism, renal (HCC) 04/27/2024 3:35 PM EDT PHOSPHORUS Lab Routine Stage 3b chronic kidney disease (HCC) 04/27/2024 3:35 PM EDT URIC ACID Lab Routine Hyperuricemia 04/27/2024 3:35 PM EDT CBC WITH WBC DIFFERENTIAL Lab Routine Iron deficiency anemia, unspecified iron deficiency anemia type 04/27/2024 3:35 PM EDT COMPREHENSIVE METABOLIC PANEL Lab STAT Chronic kidney disease, stage 3b (HCC) 04/27/2024 3:35 PM EDT CBC Lab Routine Iron deficiency anemia, unspecified iron deficiency anemia type 04/27/2024 3:35 PM EDT DIFFERENTIAL, AUTOMATED Lab Routine Iron deficiency anemia, unspecified iron deficiency anemia type 04/27/2024 3:35 PM EDT Scheduled Orders Name Type Priority Associated Diagnoses Orde r Schedule HEMOGLOBIN A1C Lab Routine Type 2 diabetes mellitus with stage 3b chronic kidney disease, without long-term current use of insulin (HCC) Expected: 04/27/2024 (Approximate), Expires: 04/27/2025 COMPREHENSIVE METABOLIC PANEL Lab Routine Paroxysmal atrial fibrillation (HCC) Pure hypercholesterolemia Expected: 04/27/2024 (Approximate), Expires: 04/27/2025 CBC WITH WBC DIFFERENTIAL Lab Routine Paroxysmal atrial fibrillation (HCC) Expected: 04/27/2024 (Approximate), Expires: 04/27/2025 TSH WITH FREE T4 IF INDICATED Lab Routine Acquired hypothyroidism Expected: 04/27/2024 (Approximate), Expires: 04/27/2025 LIPID PANEL WITH DIRECT LDL IF TG IS HIGH Lab Routine Pure hypercholesterolemia Expected: 04/27/2024, Expires: 04/27/2025 Scheduled Procedures Name Priority Associated [...] COPD 07/31/2024 07/31/2023 CKD PHOS USE SMARTSET 68312 08/19/202407/26, 05/01/2022, 04/03/2022, Additional history exists Diabetic Foot Exam 09/15/2024 09/15/2023, 0 10/01/2022, 10/26/2021, Additional history exists Depression Monitoring 09/29/2024 09/29/2023 GFR 09/30/2024 03/30/2024, 02/23, 03/02/2024, Additional history exists Albumin/Creatinine Ratio 12/08/2024 024, 02/21/2023, 05/01/2022, Additional history exists TSH 03/15/2025 03/15/2024, 02/23, 12/08/2023, Additional history exists CKD HGB USE SMARTSET 95770 03/30/202503/30, 03/30/2024, 03/15/2024, Additional history exists DXA [...] this encounter Medical Devices Implanted Type Area Measurement Technician Device Identifier Shelf Expiration Date Model / Serial / Lot Cath Thermodilution 6fr - [id number] Implanted:Qty: 1 on 01/24/2023 by Wilbur Rivera MD at [facility] [employer] TERE [id number] 10/15/2024 [id number] / / [id number] Clip Delivery Sytem G4 Xt - [id number] Implanted:Qty: 1 on 03/10/2023 at [facility] [email or web address] [id number] 04/15/2023 [id number] T / / [id number] Clip Delivery Sytem G4 Xtw - [id number] Implanted:Qty: 1 on 03/10/2023 at [facility] [email or web address] [id number] 12/06/2023 [id number] TW / / [id number] Mirtaclip G4 - [id number] Implanted:Qty: 1 on 03/10/2023 at [facility] [email or web address] 11/19/2023 [id number] / / [id number] Device Watchman Flx 31mm - [id number] Implanted:Qty: 1 on 07/31/2023 by Wilbur Rivera MD at [facility] DaWanda : INTRV CARD [id number] 12/02/2025 [id number] documented as of this encounter Procedures Procedure Name Priority Date/Time Associated Diagnosis Comments MINI-MENTAL QUESTIONNAIRE SCAN (MMSE) OP Routine 04/27/2024 Memory loss documented in this encounter Results * MINI-MENTAL QUESTIONNAIRE SCAN (MMSE) OP (04/27/2024) Narrative Hilda Awad LPN - 04/27/202430 Grey COCHRAN documented in this encounter Visit Diagnoses Diagnosis [...] regurgitation Diseases of tricuspid valve Atherosclerosis of seneca coronary artery of seneca heart without angina pectoris S/P mitral valve [...] Documents on File Type Date Recorded 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 No * No Code Date Activated Date [...] File Name Relationship Healthcare Agent [facility] p Communication Bright [place] Adult Child Health Care Frieda t (per Health Care Power of Confectionery Cooker document) Care Teams Roll Off Driver Relationship Specialty Start Date End Date Grey Calvo DO [address] [place] [address] PCP - General Internal Medicine 02/06/24 documented as of this encounter
--- OUTSIDE RECORDS SUMMARY | 2024-05-14 04:36 | External Medical Summary | Summary of Care ---
Author Name Unknown Organization [facility] Address [address] [place] [address] Phone [phone] Care Team Providers Care Underwriting Internship Name Role Phone Florentin Calvo DO Primary Care Provider [phone] Reason for Referral * Evaluate & Treat - Unlimited Visits (Within 10 days (routine)) - Authorized Specialty Diagnoses / Procedures Referred By Danny mcdowell Referred To Contact Neurology Diagnoses Memory loss Florentin Calvo DO [address] [place] [address] Referral ID Status Reason Start Date Expiration Date Visits Requested Visits Authorized [id number] Authorized Specialty Services Required 04/27/[phone] Question Answer Referral Priority Within 10 days (routine) Where should this appointment be scheduled? [facility] This patient already has care established with Neurology. Do not place this order. Please use Ask A Doc to expedite care. Acknowledge Is this referral being placed for insurance purposes ONLY No, patient needs appointment [facility] NEUROLOGY REFERRAL QUESTIONS Memory/Cognition Reason for Visit * Reason Onset Date Comments Follow Up Medication Administration 04/27/2024 Flu an d/or Pneumo Inj Hospital Follow-Up 04/27/2024 Encounter Details Date Type Department Care Team (Late st Contact Info) Description 04/27/2024 2:20 PM EDT Office Visit Family Practice [address] [place] [address] [place] [address] Florentin Calvo, [address] [place] [address] Bronchitis due to COVID-19 virus*; Cellulitis of [...] Normocytic anemia; Severe tricuspid regurgitation; Atherosclerosis of ewiia[place]ayp coronary artery of ewiiaapaayp heart without angina pectoris; S/P mitral valve [...] Dispensed Refills Start Date End Date Status GT EnergyToAnipipoio w/Device KitIndications:Type 2 diabetes mellitus with hemoglobin [...] DIRECTED 100 Tablet 3 3 Active Ipratropium Ravia 0.03 % Nasal Solution (Atrovent)Indicatio ns:Chronic rhinitis Administer 2 Sprays into nostril in the morning and 2 Sprays before bedtime. 90 mL 3 3 Active Allopurinol 300 MG Oral Tablet (Zyloprim) Take 1 Tablet by mouth at bedtime. 90 Tablet 3 3 Active Tiotropium Ravia-Olodaterol 2.5-2.5 MCG/ACT Inhalation Aerosol Solution (Stiolto Respimat) [...] suspected opioid overdose. Seek immediate medical attention. [email or web address] 1 Each 3 4 03/16/20 25 Active [...] Plan: Increased oxy from 2.5mg to 5mg [id number] prn Ortho spine ref, ?kyphoplasty Constipation 03/12/2024 [...] mitral valve clip implantation 03/06/2023 Atherosclerosis of [place] 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 02/13/2023 [...] Obstructive sleep apnea of adult 09/09/2014 Overview: PROPERTY CARETAKER Last Assessment & Plan: Now just using [...] you have serious difficulty hearing? [place] can hear w/ hearing aid 03/07/2023 Are [...] in this encounter Progress Notes * Hilda Awad LPN - 04/27/2024 2:13 PM EDT PRE - ADMINISTRATION DOCUMENTATION Are you experiencing any cold symptoms or fever? No Have you had Guillain-[place]port Syndrome (an illness that causes paralysis) within [...] couple of weeks. documented in this encounter Plan of Treatment Upcoming Encounters Date Type Department Care Team (Late st Contact Info) Description 05/04/2024 3:30 PM EDT Office Visit Hematology/Oncology [place] [place] [phone] Nereyda Metz CRNP [address] [place] [address] 05/05/2024 11:40 AM EDT Office Visit Family Practice [address] [place] [address] [place] [address] Florentin Calvo, [address] [place] [address] 05/05/2024 3:10 PM EDT Home Visit Care Coordination and Integration [address] [place] [address] Becky Green, Community Health Drying Room Supervisor [address] [place] [address] 05/06/2024 10:00 AM EDT Scheduled Telephone [facility], [facility] 132 [facility] [place] [address] Coordinator, [facility] [address] [place] [address] 05/06/2024 4:00 PM EDT Home Visit [facility], [facility] [address] [place] [address] Nikolay Wu, RN 132 [facility] [place] [address] 05/18/2024 1:20 PM EDT Office Visit Neurology Jerri Zamora [place] [address] [place] [address] Carmenza Colon PA-C [address] [place] [address] 05/21/2024 12:46 PM EDT Hospital Encounter OR [facility], Operating Room, [facility] - 4th Floor 400 [facility] [place] [place] [address] Jana Vieira, DO [address] [place] [address] 05/21/2024 12:46 PM EDT - 05/21/2024 1:31 PM EDT Surgery OR GL, Operating Room, [facility] - 4th Floor [address] [place] [address] Jana Vieira, DO [address] [place] [address] COLONOSCOPY FLEXIBLE PROXIMAL DIAGNOSTIC 06/03/2024 2:15 PM EDT Office Visit Ophthalmology, [facility] 132 [facility] [place] [address] Wilbur Benavides, DO [facility] [address] 06/09/2024 8:50 AM EDT Office Visit Vascular Surgery, [facility] 132 [facility] [place] [address] Aj Sahni MD [address] [place] [address] 07/01/2024 2:30 PM EST Office Visit Gastroenterology, [facility] 132 [facility] [place] [address] Lacy Ronquillo CRNP 132 [facility] [place] [address] 07/27/2024 1:00 PM EST Office Visit Family Practice [address] [place] [address] [address] [place] [address] Florentin Calvo, DO 293 [facility] [place] [address] 08/09/2024 1:00 PM EST Nurse Only Ancillary [address] [place] [address] [place] [address] College, Nurse Annual Wellness Visit [address] [place] [address] Pending Results Name Type Priority Associated Diagnoses Date /Time HEMOGLOBIN A1C Lab Routine Type 2 diabetes mellitus with stage 3b chronic kidney disease, without long-term current use of insulin ([facility]) 04/27/2024 3:35 PM EDT TSH WITH FREE [...] long-term current use of insulin ([facility]) Expected: 04/27/2024 (Approximate), Expires: 04/27/2025 COMPREHENSIVE METABOLIC [...] COPD 07/31/2024 07/31/2023 CKD PHOS USE SMARTSET 29765 08/19/202407/26, 05/01/2022, 04/03/2022, Additional history exists Diabetic Foot Exam 09/15/2024 09/15/2023, 0 10/01/2022, 10/26/2021, Additional history exists Depression Monitoring 09/29/2024 09/29/2023 GFR 09/30/2024 03/30/2024, 02/23, 03/02/2024, Additional history exists Albumin/Creatinine Ratio 12/08/2024 024, 02/21/2023, 05/01/2022, Additional history exists TSH 03/15/2025 03/15/2024, 02/23, 12/08/2023, Additional history exists CKD HGB USE SMARTSET 69832 03/30/202503/30, 03/30/2024, 03/15/2024, Additional history exists DXA [...] this encounter Medical Devices Implanted Type Area Youth Development Professional Device Identifier Shelf Expiration Date Model / Serial / Lot Cath Thermodilution 6fr - [id number] Implanted:Qty: 1 on 01/24/2023 by Wilbur Rivera MD at [facility] [employer] [id number] 10/15/2024 [id number] / / [id number] Clip Delivery Sytem G4 Xt - [id number] Implanted:Qty: 1 on 03/10/2023 at [facility] [employer] Intake [id number] 04/15/2023 [id number] / / [id number] Clip Delivery Sytem G4 Xtw - [id number] Implanted:Qty: 1 on 03/10/2023 at [facility] [employer] Intake [id number] 12/06/2023 [id number] / / [id number] Mirtaclip G4 - [id number] Implanted:Qty: 1 on 03/10/2023 at [facility] [employer] Intake 11/19/2023 [id number] / / [id number] Device Watchman Flx 31mm - [id number] Implanted:Qty: 1 on 07/31/2023 by Wilbur Rivera MD at [facility] arviem AG : INTRV CARD [id number] 12/02/2025 [id number] documented as of this encounter Procedures Procedure Name Priority Date/Time Associated Diagnosis Comments MINI-MENTAL QUESTIONNAIRE SCAN (MMSE) OP Routine 04/27/2024 Memory loss documented in this encounter Results * MINI-MENTAL QUESTIONNAIRE SCAN (MMSE) OP (04/27/2024) Narrative Hilda Awad, SLIME - 04/27/2024 Florentin COCHRAN documented in this encounter Visit Diagnoses [...] regurgitation Diseases of tricuspid valve Atherosclerosis of ewiiaapaayp coronary artery of ewiiaapaayp heart without angina pectoris S/P mitral valve [...] Documents on File Type Date Recorded 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 No * No Code Date Activated Date [...] File Name Relationship Healthcare Agent [facility] Communication [facility] [place] Adult Child Health Care Agen t (per Health Care Power of Tower Erector document) Care Teams Underwriting Internship Relationship Specialty Start Date End Date Florentin Calvo DO 293 [facility] [place] [address] PCP - General Internal Medicine 6/14/24 documented as of this encounter
--- OUTSIDE RECORDS SUMMARY | 2024-05-14 04:36 | External Medical Summary | Summary of Care ---
Author Name Unknown Organization [facility] Address [address] [place] [address] Phone [phone] Care Team Providers Care Electronic Warfare Operator Name Role Phone Florentin Calvo DO Primary Care Provider [phone] Reason for Referral * Evaluate & Treat - Unlimited Visits (Within 30 days (routine)) - Authorized Specialty Diagnoses / Procedures Referred By Danny mcdowell Referred To Contact Nephrology Diagnoses Chronic kidney disease, stage 3b (HCC) Florentin Calvo DO [address] [place] [address] Referral ID Status Reason Start Date Expiration Date Visits Requested Visits Authorized [id number] Authorized Specialty Services Required 04/28/[phone] Question Answer Referral Priority Within 30 days (routine) Where should this appointment be scheduled? [facility] What condition is this patient being seen for? Chronic kidney disease Reason for Visit * Reason Onset Date Comments Appointment 04/28/2024 Nephrology Encounter Details Date Type Department Care Team (Late st Contact Info) Description 04/28/2024 Telephone Family Practice 65 [facility] [place] [address] [place] [address] Florentin Calvo DO [address] [place] [address] Appointment (Nephrology) Allergies Active Allergy Reactions Criticality [...] DIRECTED 100 Tablet 3 03/31/2023 Active Ipratropium [place]ecatonica 0.03 % Nasal Solution (Atrovent)Indication s:Chronic rhinitis Administer 2 Sprays into nostril in the morning and 2 Sprays before bedtime. 90 mL 3 04/01/2023 Active Allopurinol 300 MG Oral Tablet (Zyloprim) Take 1 Tablet by mouth at bedtime. 90 Tablet 3 05/16/2023 Active Tiotropium [place]ecatonica-Olodaterol 2.5-2.5 MCG/ACT Inhalation Aerosol Solution (Stiolto Respimat) [...] suspected opioid overdose. Seek immediate medical attention. 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 [place] can hear w/ hearing aid 03/07/2023 [...] - 04/28/2024 1:14 PM EDT Sent my Vouchercloud message. Please call and schedule nephrology appt, [...] 3:30 PM EDT Office Visit Hematology/Oncolog y [facility] 200 [facility] [place] [place] [address] Nereyda Metz CRNP [address] [place], [place] [address] [address] 05/05/2024 11:40 AM EDT Office Visit Family Practice 65 [facility] [place] 293 [facility] [place] [address] Florentin Calvo DO 293 [facility], [place] [address] 05/06/2024 10:00 AM EDT Scheduled Telephone [facility] [place], [facility] 132 [facility] [place] [address] Coordinator, [facility] [address] [place] [address] 05/06/2024 4:00 PM EDT Home Visit [facility], [facility] [address] [place] [address] Nikolay Wu, RN [address] [place] [address] 05/18/2024 1:20 PM EDT Office [facility] 200 [facility] [place] [address] Carmenza Colon PA-C 200 [facility] [place] [address] 05/21/2024 12:46 PM EDT Hospital Encounter OR [facility], Operating Room, [facility] - 4th Floor [address] [place] [address] Jana Vieira, DO [address] [place] [address] 05/21/2024 12:46 PM EDT - 05/21/2024 1:31 PM EDT Surgery OR [facility], Operating Room, [facility] - 4th Floor [address] [place] [address] Jana Vieira, DO [address] [place] [address] COLONOSCOPY FLEXIBLE PROXIMAL DIAGNOSTIC 06/03/2024 2:15 PM EDT Office Visit Ophthalmology, [facility] [address] [place] [address] Wilbur Benavides, DO [facility] [place] [address] 06/09/2024 8:50 AM EDT Office Visit Vascular Surgery, [facility] 132 [place] [address] Aj Sahni MD [address] [place] [address] 07/01/2024 2:30 PM EST Office Visit Gastroenterology, [facility] 132 [facility] [place] [address] Lacy Ronquillo CRNP [address] [place] [address] 07/09/2024 1:00 PM EST Office Visit Nephrology, [facility] 200 [place] [address] Michelle Ivy PA-C 200 [place] [address] 07/27/2024 1:00 PM EST Office Visit Family Practice 65 [facility] 293 [place] [address] Florentin Calvo, [address] [place] [address] 08/09/2024 1:00 PM EST Nurse Only Ancillary [address] [address] College, Nurse Annual Wellness Visit [address] [address] Scheduled Procedures Name Priority Associated Diagnoses Date/Ti [...] Additional history exists CKD HGB USE SMARTSET 18768 04/27/202504/27, 04/27/2024, 03/30/2024, Additional history exists CKD PHOS USE SMARTSET 22546 04/27/2025 09/0 10/2023, 08/19/2023, 05/01/2022, Additional history [...] this encounter Medical Devices Implanted Type Area Human Resources Vice President Device Identifier Shelf Expiration Date Model / Serial / Lot Cath Thermodilution 6fr - [id number] Implanted:Qty: 1 on 01/24/2023 by Wilbur Rivera MD at [facility] [employer] [id number] 10/15/2024 [id number] / / [id number] Clip Delivery Sytem G4 Xt - [id number] Implanted:Qty: 1 on 03/10/2023 at [facility] [employer] [id number] 04/15/2023 [id number] T / / [id number] Clip Delivery Sytem G4 Xtw - [id number] Implanted:Qty: 1 on 03/10/2023 at [facility] [employer] [id number] 12/06/2023 [id number] TW / / [id number] Mirtaclip G4 - [id number] Implanted:Qty: 1 on 03/10/2023 at [facility] [employer] 11/19/2023 [id number] / / [id number] Device Watchman Flx 31mm - [id number] Implanted:Qty: 1 on 07/31/2023 by Wilbur Rivera MD at [facility] [employer] : INTRV CARD [id number] 12/02/2025 [id number] documented as of this encounter Visit Diagnoses Diagnosis Chronic kidney disease, stage 3b (HCC)- Primary Diarrhea, unspecified type History of diverticulitis documented in this encounter Advance Directives Documents on File Type Date Recorded 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 No * No Code Date Activated [...] Agen t (per Health Care Power of System Specialist document) Care Teams Electronic Warfare Operator Relationship Specialty Start Date End Date Florentin Calvo DO [address] [facility] [place] [address] PCP - General Internal Medicine 02/06/24 documented as of this encounter
--- OUTSIDE RECORDS SUMMARY | 2024-05-14 04:36 | External Medical Summary ---
Author Name Unknown Address Unknown Organization [id number]:LABORATORY [facility] [place] - 100 [facility] [address] Laboratory Report Ordering Provider Test Date Status PARVIZ ORR 04/27/2024 15:35:32 Final Observation Date Value Abnormality Reference (Units ) Status BUN 04/27/2024 15:35:32 38 Above high normal 6-20 (mg/dL) Final Creatinine 04/27/2024 15:35:32 1.7 Above high normal 0.5-1.0 (mg/dL) Final Glomerular filtration rate/1.73 sq M.predicted [Volume Rate/Area] in Serum, Plasma or Blood by Creatinine-based formula (CKD-EPI) 04/27/2024 15:35:32 29 Below low normal >=60 (mL/min) Final eGFR is calculated based on the CKD-EPI 2020 equation. Sodium 04/27/2024 15:35:32 139 135-146 (m mol/L) Final Potassium 04/27/2024 15:35:32 4.4 3.5-5.1 (m mol/L) Final Cl 04/27/2024 15:35:32 103 98-107 (mm ol/L) Final CO2 04/27/2024 15:35:32 24 22-32 (mmo l/L) Final Anion gap 04/27/2024 15:35:32 12 7-15 (mmol /L) Final Glucose 04/27/2024 15:35:32 113 70-120 (mg /dL) Final Albumin 04/27/2024 15:35:32 4.2 3.8-5.0 (g /dL) Final AST (Aspartate aminotransferase) 04/27/2024 15:35:32 38 Above high normal 10-35 (U/L) Final Alk Phos 04/27/2024 15:35:32 223 Above high normal 35 -130 (U/L) Final Bilirubin, Total 04/27/2024 15:35:32 0.4 <=1 .2 (mg/dL) Final Calcium 04/27/2024 15:35:32 9.5 8.4-10.2 ( mg/dL) Final Protein 04/27/2024 15:35:32 6.6 6.0-8.3 (g /dL) Final ALT (Alanine aminotransferase) 04/27/2024 15:35:32 22 10-35 (U/L) Tarik polo Performing Location LABORATORY [facility] [place] - [address] [facility] [address]
--- OUTSIDE RECORDS SUMMARY | 2024-05-14 04:36 | External Medical Summary ---
Author Name Unknown Address Unknown Organization K01:LABORATORY [facility] [place] - [address] [place] [address] Laboratory Report Ordering Provider Test Date Status KRISTA HINESYENI 04/27/2024 15:35:32 Final Deficient: <20 ng/mL
Ins ufficient: 20-29 ng/mL
Recommended/Optimum:30-50 ng/mL

Vitamin D intoxication is rare. If suspicious of Vitamin D toxicity, evaluation of serum Calcium and PTH is recommended. Observation Date Value Abnormality Reference (Units ) Status 25-OH Vitamin D total 04/27/2024 15:35:32 50 >19 (ng/mL) Final Performing Location LABORATORY [facility] - [address] [place] [address]
--- OUTSIDE RECORDS SUMMARY | 2024-05-14 04:36 | External Medical Summary ---
Author Name Unknown Address Unknown Organization K01:[facility]ATORY [facility] - [address] [place] [address] Laboratory Report Ordering Provider Test Date Status BERNARDA HINES 04/27/2024 15:35:32 Final Observation Date Value Abnormality Reference (Units ) Status Phosphate 04/27/2024 15:35:32 4.2 2.5-4.8 (m g/dL) Final Performing Location LABORATORY [facility] - [address] [place] [address]
--- OUTSIDE RECORDS SUMMARY | 2024-05-14 04:36 | External Medical Summary ---
Author Name Unknown Address Unknown Organization [id number]:LABORATORY [facility] [place] - [address] [facility] [address] [facility] [address] Laboratory Report Ordering Provider Test Date Status ANTONIO EDMONDS 04/27/2024 15:35:32 Final Observation Date Value Abnormality Reference (Units ) Status TSH 04/27/2024 15:35:32 0.68 0.27-4.20 (uIU/mL) Final Performing Location LABORATORY [facility] [place] - [address] [facility] [address]
--- OUTSIDE RECORDS SUMMARY | 2024-05-14 04:36 | External Medical Summary | Summary of Care ---
Author Name Unknown Organization [facility] Address [address] [place] [address] Phone [phone] Care Team Providers Care Power Systems Engineer Name Role Phone Grey Calvo DO Primary Care Provider [phone] Reason for Referral * Evaluate & Treat - Unlimited Visits (Within 10 days (routine)) - Authorized Specialty Diagnoses / Procedures Referred By Danny mcdowell Referred To Contact Neurology Diagnoses Memory loss Grey Calvo DO [address] [place] [address] Referral ID Status Reason Start Date Expiration Date Visits Requested Visits Authorized [id number] Authorized Specialty Services Required 04/27/2024 999 999 Question Answer Referral Priority Within 10 days (routine) Where should this appointment be scheduled? [facility] This patient already has care established with Neurology. Do not place this order. Please use Ask A Doc to expedite care. Acknowledge Is this referral being placed for insurance purposes ONLY No, patient needs appointment [facility] NEUROLOGY REFERRAL QUESTIONS Memory/Cognition Reason for Visit * Reason Onset Date Comments Follow Up Medication Administration 04/27/2024 Flu an d/or Pneumo Inj Hospital Follow-Up 04/27/2024 Encounter Details Date Type Department Care Team (Late st Contact Info) Description 04/27/2024 2:20 PM EDT Office Visit Family Practice [address] [place] [address] Grey Calvo, [address] [place] [address] Bronchitis due to COVID-19 virus*; Cellulitis of [...] Normocytic anemia; Severe tricuspid regurgitation; Atherosclerosis of ekwok coronary artery of ekwok heart without angina pectoris; S/P mitral valve [...] Dispensed Refills Start Date End Date Status HihoCoderToGiftLauncherio w/Device KitIndications:Type 2 diabetes mellitus with hemoglobin [...] DIRECTED 100 Tablet 3 3 Active Ipratropium Westport 0.03 % Nasal Solution (Atrovent)Indicatio ns:Chronic rhinitis Administer 2 Sprays into nostril in the morning and 2 Sprays before bedtime. 90 mL 3 3 Active Allopurinol 300 MG Oral Tablet (Zyloprim) Take 1 Tablet by mouth at bedtime. 90 Tablet 3 3 Active Tiotropium [place]port-Olodaterol 2.5-2.5 MCG/ACT Inhalation Aerosol Solution (Stiolto Respimat) [...] (Demadex)Indication s:Chronic diastolic CHF (congestive heart failure) ([facility]) Take 2 Tablets by mouth in the morning. 200 Tablet 3 4 Active Polyethylene Glycol 3350 17 GM/SCOOP Oral Powder (MiraLax) Take 17 g by mouth in the morning and 17 g before bedtime. Dissolve one heaping tablespoon in 8 ounces of water or juice.. 4 Active Naloxone HCl 4 MG/0.1ML NA LIQD FOR CAREGIVERIndication s:Compression fracture of T12 vertebra, initial encounter ([facility]) Administer 1 spray into 1 nostril for suspected opioid overdose. Seek immediate medical attention. [email or web address]? [email or web address] 1 Each 3 4 03/16/20 25 Active [...] pression fracture of T12 vertebra, initial encounter (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 No-[place] can hear w/ hearing aid 03/07/2023 Are [...] Recent Admission: Patient was recently admitted to [facility]. The date of discharge was 04/15/2024.Discharge report received and reviewed. 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 The patient was admitted to [facility] from 04/13/2024- 04/15/2024 due to weakness [...] of TIA (transient ischemic attack) Atherosclerosis of ekwok coronary artery without angina pectoris S/P mitral [...] MOUTH EVERY DAY DIRECTED 100Tablet 3 Ipratropium Westport 0.03 % Nasal Solution (Atrovent) Administer 2 Sprays into nostril in the morning and 2 Sprays before bedtime. 90 mL 3 Allopurinol 300 MG Oral Tablet (Zyloprim) Take 1 Tablet by mouth at bedtime. 90 Tablet 3 Tiotropium Westport-Olodaterol 2.5-2.5 MCG/ACT Inhalation Aerosol Solution (Stiolto Respimat) [...] suspected opioid overdose. Seek immediate medical attention. [email or web address]://www.youtube.com/[email or web address]?v=[email or web address] 1 Each 3 No current facility-administered medications [...] [facility] Nickel Swelling Other reaction(s): Unknown OBJECTIVE: [...] alert. Motor: No weakness. Gait: Gait normal. Psychiatric: Mood and Affect: Mood is anxious. [...] (MMSE) OP - ADULT NEUROLOGY REFERRAL OP Pure hypercholesterolemia - COMPREHENSIVE METABOLIC PANEL; Future; [...] Normocytic anemia Severe tricuspid regurgitation Atherosclerosis of ekwok coronary artery of ekwok heart without angina pectoris Continue ASA, and [...] symptoms or fever? No Have you had Guillain-[place] Syndrome (an illness that causes paralysis) within [...] documented in this encounter Nursing Notes * AwadHilda carrionSLIME - 04/27/2024 2:12 PM EDT Here for [...] 05/04/2024 3:30 PM EDT Office Visit Hematology/Oncology [facility] [address] [place] [address] Nereyda Metz CRNP [address] [place] [address] 05/05/2024 11:40 AM EDT Office Visit Family Practice [address] [facility] [address] [place] [address] Grey Calvo DO [address] [place] [address] 05/05/2024 3:10 PM EDT Home Visit Care Coordination and Integration [address] [place] [address] Becky Green, Community Health Size Changer [address] [facility] [place] [address] 05/06/2024 10:00 AM EDT Scheduled Telephone [facility], [address] [place] [address] Coordinator, [facility] [address] [place] [address] 05/06/2024 4:00 PM EDT Home Visit [facility], [facility] [address] [place] [address] Nikolay Wu, RN [address] [place] [address] 05/18/2024 1:20 PM EDT Office Visit Neurology [facility] [address] [facility] [place] [address] Carmenza Colon PA-C [address] [facility] [place] [address] 05/21/2024 12:46 PM EDT Hospital Encounter OR GL, Operating Room, [facility] [place] [facility] - 4th Floor [address] [place] [address] Jana Vieira, DO [address] [place] [address] 05/21/2024 12:46 PM EDT - 05/21/2024 1:31 PM EDT Surgery OR [facility], Operating Room, [facility] [place] [facility] - 4th Floor [address] [place] [address] Jana Vieira, DO [address] [place] [address] COLONOSCOPY FLEXIBLE PROXIMAL DIAGNOSTIC 06/03/2024 2:15 PM EDT Office Visit Ophthalmology, [facility] [address] [place] [address] Wilbur Benavides, DO [address] [facility] [place] [address] 06/09/2024 8:50 AM EDT Office Visit Vascular Surgery, [facility] [place] [address] Aj Sahni MD [address] [place] [address] 07/01/2024 2:30 PM EST Office Visit Gastroenterology, [facility] [place] [address] Lacy Ronquillo CRNP [facility] [address] 07/27/2024 1:00 PM EST Office Visit Family Practice 65 [facility] [address] [place] [address] Grey Calvo, [address] [place] [address] 08/09/2024 1:00 PM EST Nurse Only Ancillary 65 [facility] [address] [place] [address] College, Nurse Annual Wellness Visit [address] [address] Pending Results Name Type Priority Associated Diagnoses Date /Time HEMOGLOBIN A1C Lab Routine Type 2 diabetes mellitus with stage 3b chronic kidney disease, without long-term current use of insulin ([facility]) 04/27/2024 3:35 PM EDT TSH WITH [...] COPD 07/31/2024 07/31/2023 CKD PHOS USE SMARTSET 98901 08/19/202407/26, 05/01/2022, 04/03/2022, Additional history exists Diabetic Foot Exam 09/15/2024 09/15/2023, 0 10/01/2022, 10/26/2021, Additional history exists Depression Monitoring 09/29/2024 09/29/2023 GFR 09/30/2024 03/30/2024, 02/23, 03/02/2024, Additional history exists Albumin/Creatinine Ratio 12/08/2024 024, 02/21/2023, 05/01/2022, Additional history exists TSH 03/15/2025 03/15/2024, 02/23, 12/08/2023, Additional history exists CKD HGB USE SMARTSET 71063 03/30/202503/30, 03/30/2024, 03/15/2024, Additional history exists DXA [...] this encounter Medical Devices Implanted Type Area Ice Skating Coach Device Identifier Shelf Expiration Date Model / Serial / Lot Cath Thermodilution 6fr - [id number] Implanted:Qty: 1 on 01/24/2023 by Wilbur Rivera MD at [facility] [employer] [id number] 10/15/2024 [id number] / / [id number] Clip Delivery Sytem G4 Xt - [id number] Implanted:Qty: 1 on 03/10/2023 at [facility] [place] [id number] 04/15/2023 [id number] / / [id number] Clip Delivery Sytem G4 Xtw - [id number] Implanted:Qty: 1 on 03/10/2023 at [facility] [place] [id number] 12/06/2023 [id number] / / [id number] Mirtaclip G4 - [id number] Implanted:Qty: 1 on 03/10/2023 at [facility] [place] 11/19/2023 [id number] / / [id number] Device Watchman Flx 31mm - [id number] Implanted:Qty: 1 on 07/31/2023 by Wilbur Rivera MD at [facility] [employer] : INTRV CARD [id number] 12/02/2025 [id number] documented as of this encounter Procedures Procedure Name Priority Date/Time Associated Diagnosis Comments MINI-MENTAL QUESTIONNAIRE SCAN (MMSE) OP Routine 04/27/2024 Memory loss documented in this encounter Results * MINI-MENTAL QUESTIONNAIRE SCAN (MMSE) OP (04/27/2024) Narrative Hilda Awad LPN - 04/27/2024 Grey COCHRAN documented in this encounter Visit [...] regurgitation Diseases of tricuspid valve Atherosclerosis of ekwok coronary artery of ekwok heart without angina pectoris S/P mitral valve [...] on File Type Date Recorded 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 No * No Code Date Activated Date [...] on File Name Relationship Healthcare Agent [facility] Communication [facility] Adult Child Health Care Agen t (per Health Care Power of Wastewater Process Engineer document) Care Teams Power Systems Engineer Relationship Specialty Start Date End Date Grey Calvo DO [address] [place] [address] PCP - General Internal Medicine 02/06/24 documented as of this encounter
--- OUTSIDE RECORDS SUMMARY | 2024-05-14 04:36 | External Medical Summary ---
Author Name Unknown Address Unknown Organization [id number]:LABORATORY [facility] [place] - [address] [facility] [address] Laboratory Report Ordering Provider Test Date Status ANTONIO EDMONDS 04/27/2024 15:35:32 Final Observation Date Value Abnormality Reference (Units ) Status HbA1C 04/27/2024 15:35:32 6.7 Above high normal 4. 0-5.6 (%) Final The use of HbA1c to monitor glycemic status is based on normal hemoglobin and HbA composition. This test should not be used in patients with abnormal hemoglobin that affects the half life of the red blood cell or the in vivo glycation rates. Glucose, estimated average 04/27/2024 15:35:32 146 Above high normal <126 (mg/dL) Tarik polo Performing Location [facility] - [address] [facility] [address]
--- OUTSIDE RECORDS SUMMARY | 2024-05-14 04:36 | External Medical Summary ---
Author Name Unknown Address Unknown Organization [id number]:LAB[facility]ORY [facility] [place] - [address] [place] [address] Laboratory Report Ordering Provider Test Date Status BERNARDA HINES 04/27/2024 15:35:32 Final Observation Date Value Abnormality Reference (Units ) Status Uric Acid 04/27/2024 15:35:32 5.0 2.4-5.7 (m g/dL) Final Performing Location [facility] - [address] [facility] [address]
--- OUTSIDE RECORDS SUMMARY | 2024-05-14 04:36 | External Medical Summary ---
Author Name Unknown Address Unknown Organization [id number][place] [place] [address] [facility] [address] Laboratory Report Ordering Provider Test Date Status ANTONIO EDMONDS 04/27/2024 15:35:32 Final Observation Date Value Abnormality Reference (Units ) Status Triglyceride 04/27/2024 15:35:32 145 <=174 ( mg/dL) Final Triglyceride Reference Range s (mg/dL):
<150 Acceptable
150-174 Borderline high
175-499 High
>=500 Very high Cholesterol 04/27/2024 15:35:32 122 <200 (mg /dL) Final Total Cholesterol Reference Ranges (mg/dL):
<200 Desirable
200-239 Borderline high
>=240 High HDL 04/27/2024 15:35:32 53 >49 (mg/dL ) Final HDL Cholesterol Reference Ra nges (mg/dL):
>=60 High (Desirable)
<50 Low (Undesirable) For Females
<40 Low (Undesirable) For Males NON-HDL CHOLESTEROL 04/27/2024 15:35:32 69 <=159 (mg/dL) Final Non-HDL Cholesterol Referenc e Range (mg/dL):
<100 Target level for high risk ASCVD patient
<130 Optimal for general population
130-159 Near optimal for general population
160-189 Borderline High
190-219 High
>=220 Very High LDL, (calculated) 04/27/2024 15:35:32 40 <= 129 (mg/dL) Final LDL Cholesterol Reference Ra nges (mg/dL):
<70 Target level for high risk ASCVD patient
<100 Optimal for general population
100-129 Near optimal for general population
130-159 Borderline high
160-189 High
>=190 Very high Performing Location [facility] [place] [address] [place] [address]
--- OUTSIDE RECORDS SUMMARY | 2024-05-14 04:36 | External Medical Summary ---
Author Name Unknown Address Unknown Organization K01:LAB[facility]ATORY [facility] [place] - [facility] [address] [facility] [address] Laboratory Report Ordering Provider Test Date Status PARVIZ ORR 04/27/2024 15:35:32 Final Observation Date Value Abnormality Reference (Units ) Status WBC, Total 04/27/2024 15:35:32 11.62 Above high normal 4.00-10.80 (K/uL) Final RBC 04/27/2024 15:35:32 3.52 3.85-5.15 (M/uL) Final Hemoglobin 04/27/2024 15:35:32 10.8 Below low normal 12.0-15.3 (g/dL) Final HCT 04/27/2024 15:35:32 35.4 Below low normal 36.0-45.2 (%) Final MCV 04/27/2024 15:35:32 100.6 81.5-97.5 (fL) Final MCH 04/27/2024 15:35:32 30.7 27.0-34.0 (pg) Final MCHC 04/27/2024 15:35:32 30.5 32.0-36.0 (g/dL) Final RDW 04/27/2024 15:35:32 17.2 11.5-15.5 (%) Final Platelets 04/27/2024 15:35:32 245 140-400 (K/uL) Final MPV 04/27/2024 15:35:32 11.3 6.6-11.1 (fL) Final Nucleated erythrocytes/100 leukocytes [Ratio] in Blood by Automated count 04/27/2024 15:35:32 0 <=0 (/100 WBCs) Final Performing Location LABORATORY [facility] [place] - [address] [facility] [address]
--- OUTSIDE RECORDS SUMMARY | 2024-05-14 04:36 | External Medical Summary ---
Author Name Unknown Address Unknown Organization K01:[facility]ORY [facility] [place] - [address] [place] [address] Laboratory Report Ordering Provider Test Date Status BERNARDA HINES 04/27/2024 15:35:32 Final Observation Date Value Abnormality Reference (Units ) Status Parathyrin.intact [Mass/volume] in Serum or Plasma 04/27/2024 15:35:32 97 Above high normal 15-65 (pg/mL) Final Performing Location [facility] [place] - [address] [place] [address]
--- OUTSIDE RECORDS SUMMARY | 2024-05-14 04:37 | External Medical Summary | Summary of Care ---
Author Name Unknown Organization [facility] Address [address] [place] [address] Phone [phone] Care Team Providers Care Crown Assembly Machine Set Up Mechanic Name Role Phone Florentin Calvo DO Primary Care Provider [phone] Reason for Visit * Reason Onset Date Comments Information 04/20/2024 Encounter Details Date Type Department Care Team (Late st Contact Info) Description 04/20/2024 Telephone Family Practice 65 [facility] [address] [place] [address] Florentin Calvo DO [address] [place] [address] Information Allergies Active Allergy Reactions Criticality Noted [...] as of this encounter (statuses as of 04/21/2024) Medications Medication Sig Dispensed Refills Start Date End Date Status RenkooToBrainSINS [email or web address] w/Device KitIndications:Type 2 diabetes mellitus with hemoglobin [...] Wheezing. 15 g 12 06/13/2022 Active OneTouch [email or web address] In Vitro Strip (Glucose Blood) Test blood [...] DIRECTED 100 Tablet 3 03/31/2023 Active Ipratropium [place] 0.03 % Nasal Solution (Atrovent)Indication s:Chronic rhinitis Administer 2 Sprays into nostril in the morning and 2 Sprays before bedtime. 90 mL 3 04/01/2023 Active Allopurinol 300 MG Oral Tablet (Zyloprim) Take 1 Tablet by mouth at bedtime. 90 Tablet 3 05/16/2023 Active Tiotropium [place]-Olodaterol 2.5-2.5 MCG/ACT Inhalation Aerosol Solution (Stiolto Respimat) [...] :Compression fracture of T12 vertebra, initial encounter ([facility]) Administer 1 spray into 1 nostril for suspected opioid overdose. Seek immediate medical attention. [email or web address]?[email or web address] 1 Each 3 03/16/2024 Active Levothyroxine Sodium 175 MCG Oral [...] For pain control. 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 (Household - [...] or do you have serious difficulty hearing? No-[place] can hear w/ hearing aid 03/07/2023 Are [...] Telephone Encounter - Florentin Calvo DO - 04/21/2024 3:39 PM EDT Agree with plan. * Telephone Encounter - Hilda Awad LPN - 04/21/2024 3:24 PM EDT Called, left message for Bright stating if received from the hospitalization physical therapy. They won't be able to return I advised. Advised him to call to see if adjustment could be made. Thank you * Telephone Encounter - Grace Arnold OSA - 04/20/2024 4:35 PM EDT Pt calling to state the back brace the hospital gave her to wear does not fit her correctly and sheis asking if we can help her get this exchanged. Pt does not remember name of doc or how to find the doc that ordered. Please advise. documented in this encounter Plan of Treatment Upcoming Encounters Date Type Department Care Team (Late st Contact Info) Description 04/27/2024 2:00 PM EDT Pharmacy Family Practice [address] [facility], [address] [place] [address] College, Pharmacist 65 [facility] 293 [facility], [place] [address] 04/27/2024 2:20 PM EDT Office Visit Family Practice 65 [facility] 293 [facility], [place] [address] Florentin Cavlo, 293 [facility] [place] [address] 05/04/2024 3:30 PM EDT Office Visit Hematology/Oncology [facility] 200 [facility], [place] [phone] Nereyda Metz, JESS [address] [place] [address] 05/05/2024 3:10 PM EDT Home Visit Care Coordination and Integration [address] [place] [address] Becky Green, Community Health Skate Maker [address] [place] [address] 05/06/2024 10:00 AM EDT Scheduled Telephone [facility], [facility] [address] [place] [address] Coordinator, [facility] [address] [place] [address] 05/06/2024 4:00 PM EDT Home Visit [facility], [facility] [address] [place] [address] Nikolay Wu, AISHA [address] [place] [address] 05/21/2024 12:46 PM EDT Hospital Encounter OR [facility], [facility], [facility] - 4[facility] Floor [address] [place] [address] Jana Vieira, DO [address] [place] [address] 05/21/2024 12:46 PM EDT - 05/21/2024 1:31 PM EDT Surgery OR [facility], Operating Room, [facility] - 4th Floor 400 [facility] [place] [address] Jana Vieira, DO [address] [place] [address] COLONOSCOPY FLEXIBLE PROXIMAL DIAGNOSTIC 06/03/2024 2:15 PM EDT Office Visit Ophthalmology, [facility] 132 [facility] [place] [address] Wilbur Benavides, DO [facility] [place] [address] 06/09/2024 8:50 AM EDT Office Visit Vascular Surgery, [facility] 132 [facility] [place] [address] Aj Sahni MD [address] [place] [address] 07/01/2024 2:30 PM EST Office Visit Gastroenterology, [facility] 132 [facility] [place] [address] Lacy Ronquillo CRNP 132 [facility] [place] [address] 08/09/2024 1:00 PM EST Nurse Only Ancillary 65 [facility] 293 [facility], [place] [address] College, Nurse Annual Wellness Visit [address], [place] [address] Scheduled Procedures Name Priority Associated Diagnoses Date/Ti [...] COPD 07/31/2024 07/31/2023 CKD PHOS USE SMARTSET 68028 08/19/202407/26, 05/01/2022, 04/03/2022, Additional history exists Diabetic Foot Exam 09/15/2024 09/15/2023, 0 10/01/2022, 10/26/2021, Additional history exists Depression Monitoring 09/29/2024 09/29/2023 GFR 09/30/2024 03/30/2024, 02/23, 03/02/2024, Additional history exists Albumin/Creatinine Ratio 12/08/2024 024, 02/21/2023, 05/01/2022, Additional history exists TSH 03/15/2025 03/15/2024, 02/23, 12/08/2023, Additional history exists CKD HGB USE SMARTSET 26626 03/30/202503/30, 03/30/2024, 03/15/2024, Additional history exists DXA [...] this encounter Medical Devices Implanted Type Area Fare Collector Device Identifier Shelf Expiration Date Model / Serial / Lot Cath Thermodilution 6fr - [id number] Implanted:Qty: 1 on 01/24/2023 by Wilbur Rivera MD at [facility] [employer] [id number] 10/15/2024 [id number] / / [id number] Clip Delivery Sytem G4 Xt - [id number] Implanted:Qty: 1 on 03/10/2023 at [facility] [employer] [id number] 04/15/2023 [id number] / / [id number] Clip Delivery Sytem G4 Xtw - [id number] Implanted:Qty: 1 on 03/10/2023 at [facility] [employer] [id number] 12/06/2023 [id number] TW / / [id number] Mirtaclip G4 - [id number] Implanted:Qty: 1 on 03/10/2023 at [facility] [employer] 11/19/2023 [id number] / / [id number] Device Watchman Flx 31mm - [id number] Implanted:Qty: 1 on 07/31/2023 by Wilbur Rivera MD at [facility] [employer] : INTRV CARD [id number] 12/02/2025 [id number] / / [id number] documented as of this encounter Advance Directives Documents on File Type Date Recorded Patient State Historical Society Director Expl anation Advance Directives and Living Will 11/29/2022 ADVANCE DIRECTIVE / LIVING WILL Power of Senior Product Integrity Engineer 11/29/2022 POWER OF A TTORNEY Advance Directives and Living Will 10/24/2014 ADVANCE DIRECTIVE / LIVING WILL Power of Senior Product Integrity Engineer 10/24/2014 POWER OF A TTORNEY * [...] the patient have Health Care Power of Senior Product Integrity Engineer? No * No Code Date Activated [...] File Name Relationship Healthcare [facility] Bright Barakat Adult Child Health Care Frieda t (per Health Care Power of Senior Product Integrity Engineer document) Care Teams Crown Assembly Machine Set Up Mechanic Relationship Specialty Start Date End Date Florentin Calvo DO [address] [place] [address] PCP - General Internal Medicine 02/06/24 documented as of this encounter
--- OUTSIDE RECORDS SUMMARY | 2024-05-14 04:37 | External Medical Summary | Summary of Care ---
Author Name Unknown Organization [facility] Address [address] [place] [address] Phone [phone] Care Team Providers Care Gasoline Tester Name Role Phone Florentin Calvo DO Primary Care Provider [phone] Reason for Visit * Reason Onset Date Comments Appointment 04/21/2024 Encounter Details Date Type Department Care Team (Late st Contact Info) Description 04/21/2024 Telephone [facility], [facility] [address] [place] [address] Services, Scheduling [address] [place] [address] Appointment Allergies Active Allergy Reactions Criticality Noted [...] Dispensed Refills Start Date End Date Status [employer] Verio w/Device KitIndications:Type 2 diabetes mellitus with [...] Tablet (Lipitor)Indications :PVD (peripheral vascular disease) ([facility]),Type 2 diabetes mellitus with stage 3a chronic kidney disease and hypertension ([facility]) TAKE ONE TABLET BY MOUTH EVERY DAY DIRECTED 100 Tablet 3 03/31/2023 Active Ipratropium [place] 0.03 % Nasal Solution (Atrovent)Indication s:Chronic rhinitis Administer 2 Sprays into nostril in the morning and 2 Sprays before bedtime. 90 mL 3 04/01/2023 Active Allopurinol 300 MG Oral Tablet (Zyloprim) Take 1 Tablet by mouth at bedtime. 90 Tablet 3 05/16/2023 Active Tiotropium [place]-Olodaterol 2.5-2.5 MCG/ACT Inhalation Aerosol Solution (Stiolto Respimat) [...] suspected opioid overdose. Seek immediate medical attention. 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 Last Assessment & Plan: Now just using [...] MCG/0.3 mL, 12 YRS AND ABOVE, IM [facility] 06/09/2023 Covid-19, Mrna, Lnp-s, Pf, B [...] encounter Miscellaneous Notes * Telephone Encounter - Bernardo Handley OSA - 04/21/2024 9:18 AM EDT Inbound call from daughter, she didn't understand the need for the CHW visit for 05/05 documented in this encounter Plan of Treatment Upcoming Encounters Date Type Department Care Team (Late st Contact Info) Description 04/27/2024 2:00 PM EDT Pharmacy Family Practice 65 [facility] 293 [place] [address] College, Pharmacist [address] [place] [address] 04/27/2024 2:20 PM EDT Office Visit Family Practice 65 [facility] [address] [place] [address] Florentin Calvo, DO 293 [place] [address] 05/04/2024 3:30 PM EDT Office Visit Hematology/Oncology [facility] 200 [facility], [place] [address] Nereyda Metz CRNP 400 [facility] [place] [address] 05/05/2024 3:10 PM EDT Home Visit Care Coordination and Integration [address] [facility] [place] [address] Becky Green, [facility] Support Specialist [address] [facility] [place] [address] 05/06/2024 10:00 AM EDT Scheduled Telephone [facility], [facility] [address] [place] [address] Coordinator, [facility] [address] [place] [address] 05/06/2024 4:00 PM EDT Home Visit [facility], [facility] [address] [place] [address] Nikolay Wu, AISHA [address] [place] [address] 05/21/2024 12:46 PM EDT Hospital Encounter OR [facility], Operating Room, [facility] - 4th Floor [address] [place] [address] Jana Vieira, DO [address] [place] [address] 05/21/2024 12:46 PM EDT - 05/21/2024 1:31 PM EDT Surgery OR [facility], Operating Room, [facility] - 4th Floor [address] [place] [address] Jana Vieira DO [address] [place] [address] COLONOSCOPY FLEXIBLE PROXIMAL DIAGNOSTIC 06/03/2024 2:15 PM EDT Office Visit Ophthalmology, [facility] [address] [place] [address] Wilbur Benavides, DO [facility] [place] [address] 06/09/2024 8:50 AM EDT Office Visit Vascular Surgery, [facility] 132 [facility] [place] [address] Aj Sahni MD [address] [place] [address] 07/01/2024 2:30 PM EST Office Visit Gastroenterology, [facility] 132 [facility] [place] [address] Lacy Ronquillo CRNP 132 [facility] [place] [address] 08/09/2024 1:00 PM EST Nurse Only Ancillary 65 [facility] 293 [place] [address] College, Nurse Annual Wellness Visit [address] [place] [address] Scheduled Procedures Name Priority Associated Diagnoses Date/Ti [...] COPD 07/31/2024 07/31/2023 CKD PHOS USE SMARTSET 31011 08/19/202407/26, 05/01/2022, 04/03/2022, Additional history exists Diabetic Foot Exam 09/15/2024 09/15/2023, 0 10/01/2022, 10/26/2021, Additional history exists Depression Monitoring 09/29/2024 09/29/2023 GFR 09/30/2024 03/30/2024, 02/23, 03/02/2024, Additional history exists Albumin/Creatinine Ratio 12/08/2024 024, 02/21/2023, 05/01/2022, Additional history exists TSH 03/15/2025 03/15/2024, 02/23, 12/08/2023, Additional history exists CKD HGB USE SMARTSET 16858 03/30/202503/30, 03/30/2024, 03/15/2024, Additional history exists DXA [...] encounter Medical Devices Implanted Type Area Customer Program Specialist Device Identifier Shelf Expiration Date Model / Serial / Lot Cath Thermodilution 6fr - [id number] Implanted:Qty: 1 on 01/24/2023 by Wilbur Rivera MD [place] [facility] [employer] [id number] 10/15/2024 [id number] / / [id number] Clip Delivery Sytem G4 Xt - [id number] Implanted:Qty: 1 on 03/10/2023 at [facility] [employer] [id number] 04/15/2023 [id number] T / / [id number] Clip Delivery Sytem G4 Xtw - [id number] Implanted:Qty: 1 on 03/10/2023 at [facility] [employer] [id number] 12/06/2023 [id number] / / [id number] Mirtaclip G4 - [id number] Implanted:Qty: 1 on 03/10/2023 at [facility] [employer] 11/19/2023 [id number] / / [id number] Device Watchman Flx 31mm - [id number] Implanted:Qty: 1 on 07/31/2023 by Wilbur Rivera MD [place] [facility] [employer] : INTRV CARD [id number] 12/02/2025 [id number] 10 / / [id number] documented as of this encounter Advance Directives Documents on File Type Date Recorded Patient Rn Team Leader Expl anation Advance Directives and Living Will 11/29/2022 ADVANCE DIRECTIVE / LIVING WILL Power of Ems Driver 11/29/2022 POWER OF A TTORNEY Advance Directives and Living Will 10/24/2014 ADVANCE DIRECTIVE / LIVING WILL Power of Ems Driver 10/24/2014 POWER OF A TTORNEY * Full [...] the patient have Health Care Power of Ems Driver? No * No Code Date Activated Date [...] Relationship Healthcare Agent Relationshi p Communication Bright [facility] Adult Child Health Care Agen t (per Health Care Power of Ems Driver document) Care Teams Gasoline Tester Relationship Specialty Start Date End Date Florentin Calvo DO [address] [place] [address] PCP - General Internal Medicine 02/06/24 documented as of this encounter
--- OUTSIDE RECORDS SUMMARY | 2024-05-14 04:37 | External Medical Summary | Summary of Care ---
Author Name Unknown Organization [facility] Address [address] [place] [address] Phone [phone] Care Team Providers Care Senior Internal Auditor Name Role Phone Florentin Calvo DO Primary Care Provider [phone] Reason for Visit * Reason Onset Date Comments Information 04/20/2024 Encounter Details Date Type Department Care Team (Late st Contact Info) Description 04/20/2024 Telephone Family Practice 65 [facility] [address] [place] [address] Florentin Calvo DO [address] [place] [address] Information Allergies Active Allergy Reactions [...] Dispensed Refills Start Date End Date Status Som[employer] SolutionsTo[employer] VerLoveland Technologies w/Device KitIndications:Type 2 diabetes mellitus with [...] Wheezing. 15 g 12 06/13/2022 Active OneTouch [employer]Loveland Technologies In Vitro Strip (Glucose Blood) Test [...] 100 Tablet 3 03/31/2023 Active Ipratropium [place] 0.03 % Nasal Solution (Atrovent)Indication s:Chronic rhinitis Administer 2 Sprays into nostril in the morning and 2 Sprays before bedtime. 90 mL 3 04/01/2023 Active Allopurinol 300 MG Oral Tablet (Zyloprim) Take 1 Tablet by mouth at bedtime. 90 Tablet 3 05/16/2023 Active Tiotropium [place]-Olodaterol 2.5-2.5 MCG/ACT Inhalation Aerosol Solution (Stiolto Respimat) [...] fracture of T12 vertebra, initial encounter ([facility]) Administer 1 spray into 1 nostril for suspected opioid overdose. Seek immediate medical attention. [email or web address]?v=[email or web address] 1 Each 3 03/16/2024 Active Levothyroxine Sodium [...] fracture of T12 vertebra, initial encounter ([facility]) Place 1 Patch over 72 hours topically on the skin every 3 days. For pain control. 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 (Household - for ages [...] or do you have serious difficulty hearing? [place] can hear w/ hearing aid 03/07/2023 Are [...] PM EDT Pharmacy Family Practice [address] [facility], [address] [place] [address] College, Pharmacist 65 [facility] 293 [facility], [place] [address] 04/27/2024 2:20 PM EDT Office Visit Family Practice 65 [facility] 293 [facility], [place] [address] Florentin Calvo, 293 [place] [address] 05/04/2024 3:30 PM EDT Office Visit Hematology/Oncology [facility] 200 [facility], [place] [id number] Nereyda Metz, JESS [address] [place] [address] 05/05/2024 3:10 PM EDT Home Visit Care Coordination and Integration [address] [place] [address] Becky Green, Community Health Circulation Clerk [address] [place] [address] 05/06/2024 10:00 AM EDT Scheduled Telephone [facility], [facility] [address] [place] [address] Coordinator, [facility] [address] [place] [address] 05/06/2024 4:00 PM EDT Home Visit [facility], [facility] [address] [place] [address] Nikolay Wu, AISHA [address] [place] [address] 05/21/2024 12:46 PM EDT Hospital Encounter OR [facility], Operating Room, [facility] - 4th Floor [address] [place] [address] Jana Vieira, DO [address] [place] [address] 05/21/2024 12:46 PM EDT - 05/21/2024 1:31 PM EDT Surgery OR [facility], Operating Room, [facility] - 4th Floor 400 [facility] [place] [address] Jana Vieira, DO [address] [place] [address] COLONOSCOPY FLEXIBLE PROXIMAL DIAGNOSTIC 06/03/2024 2:15 PM EDT Office Visit Ophthalmology, [facility] 132 [facility] [place] [address] Wilbur Benavides, DO [facility] [place] [address] 06/09/2024 8:50 AM EDT Office Visit Vascular Surgery, [facility] 132 [facility] [place] [address] Aj Sahni MD [address] [place] [address] 07/01/2024 2:30 PM EST Office Visit Gastroenterology, [facility] 132 [facility] [place] [address] Lacy Ronquillo CRNP 132 [facility] [place] [address] 08/09/2024 1:00 PM EST Nurse Only Ancillary 65 [facility] 293 [facility], [place] [address] College, Nurse Annual Wellness Visit [address], [place] [address] Scheduled Procedures Name Priority Associated Diagnoses Date/Ti [...] COPD 07/31/2024 07/31/2023 CKD PHOS USE SMARTSET 67229 08/19/202407/26, 05/01/2022, 04/03/2022, Additional history exists Diabetic Foot Exam 09/15/2024 09/15/2023, 0 10/01/2022, 10/26/2021, Additional history exists Depression Monitoring 09/29/2024 09/29/2023 GFR 09/30/2024 03/30/2024, 02/23, 03/02/2024, Additional history exists Albumin/Creatinine Ratio 12/08/2024 024, 02/21/2023, 05/01/2022, Additional history exists TSH 03/15/2025 03/15/2024, 02/23, 12/08/2023, Additional history exists CKD HGB USE SMARTSET 88732 03/30/202503/30, 03/30/2024, 03/15/2024, Additional history exists DXA [...] this encounter Medical Devices Implanted Type Area Florist Device Identifier Shelf Expiration Date Model / Serial / Lot Cath Thermodilution 6fr - [id number] Implanted:Qty: 1 on 01/24/2023 by Wilbur Rivera MD at [facility] [place] [place] [employer] [id number] 10/15/2024 [id number] / / [id number] Clip Delivery Sytem G4 Xt - [id number] Implanted:Qty: 1 on 03/10/[address] [place] [place] [employer] [id number] 04/15/2023 [id number] T / / [id number] Clip Delivery Sytem G4 Xtw - [id number] Implanted:Qty: 1 on 03/10/[address] [place] [place] [employer] [id number] 12/06/2023 [id number] TW / / [id number] Mirtaclip G4 - [id number] Implanted:Qty: 1 on 03/10/[address] [facility] [place] [place] [employer] 11/19/2023 [id number] / / [id number] Device Watchman Flx 31mm - [id number] Implanted:Qty: 1 on 07/31/2023 by Wilbur Rivera MD at [facility] [place] [place] [employer] : INTRV CARD [id number] 12/02/2025 [id number] / / [id number] documented as of this encounter Advance Directives Documents on File Type Date Recorded Patient Burner Hand Expl anation Advance Directives and Living Will 11/29/2022 ADVANCE DIRECTIVE / LIVING WILL Power of Legal Writing Professor 11/29/2022 POWER OF A TTORNEY Advance Directives and Living Will 10/24/2014 ADVANCE DIRECTIVE / LIVING WILL Power of Legal Writing Professor 10/24/2014 POWER OF A TTORNEY * [...] the patient have Health Care Power of Legal Writing Professor? No * No Code Date Activated [...] File Name Relationship Healthcare Agent [facility] Communication Bright Barakat Adult Child Health Care Frieda t (per Health Care Power of Legal Writing Professor document) Care Teams Senior Internal Auditor Relationship Specialty Start Date End Date Florentin Calvo DO [address] [place] [address] PCP - General Internal Medicine 02/06/24 documented as of this encounter
--- OUTSIDE RECORDS SUMMARY | 2024-05-14 04:38 | External Medical Summary | Summary of Care ---
Author Name Unknown Organization [facility] Address [address] [place] [address] Phone [phone] Care Team Providers Care Artist Suspect Name Role Phone Florentin Calvo DO Primary Care Provider [phone] Encounter Details Date Type Department Care Team (Late st Contact Info) Description 04/19/2024 Telephone Hematology/Oncology [facility] [address] [place] [address] Nereyda Metz CRNP [address] [place] [address] Allergies Active Allergy Reactions Criticality Noted Date [...] as of this encounter (statuses as of 04/19/2024) Medications Medication Sig Dispensed Refills Start Date End Date Status First Wind w/Device KitIndications:Type 2 diabetes mellitus with hemoglobin [...] Wheezing. 15 g 12 06/13/2022 Active OneTouch VerQuickflix In Vitro Strip (Glucose Blood) Test blood sugars up to 2 times a day E11.9 200 Strip 3 12/20/2022 Active Atorvastatin Calcium 20 MG Oral Tablet (Lipitor)Indications :PVD (peripheral vascular disease) ([facility]),Type 2 diabetes mellitus with stage 3a chronic kidney disease and hypertension ([facility]) TAKE ONE TABLET BY MOUTH EVERY DAY DIRECTED 100 Tablet 3 03/31/2023 Active Ipratropium [place] 0.03 % Nasal Solution (Atrovent)Indication s:Chronic rhinitis Administer 2 Sprays into nostril in the morning and 2 Sprays before bedtime. 90 mL 3 04/01/2023 Active Allopurinol 300 MG Oral Tablet (Zyloprim) Take 1 Tablet by mouth at bedtime. 90 Tablet 3 05/16/2023 Active Tiotropium [place]-Olodaterol 2.5-2.5 MCG/ACT Inhalation Aerosol Solution (Stiolto [...] :Compression fracture of T12 vertebra, initial encounter ([facility]) Administer 1 spray into 1 nostril for suspected opioid overdose. Seek immediate medical attention. [email or web address] 1 Each 3 03/16/2024 Active Levothyroxine Sodium [...] ression fracture of T12 vertebra, initial encounter ([facility]) Place 1 Patch over 72 hours topically on the skin every 3 days. For pain control. 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 No-KARUK can hear w/ hearing aid 03/07/2023 Are [...] encounter Miscellaneous Notes * Telephone Encounter - Jean-Claude Galidno RN - 04/19/2024 9:45 AM EDT Last labs done 03/30/[address] Calvo. Showed normal iron, elevated ferritin. Advised we would like repeat CBCD,CMP prior to her office visit. No answer, left detailed message on her machine to have these repeated a few days prior to follow up. * Telephone Encounter - Dayan Pryor OSA - 04/19/2024 8:53 AM EDT Pt's daughter Kathy calling to ask if labs will be required for office visit with Nereyad Metz on 05/04; visit was rescheduled from previous 04/12 appt. Please call Kathy Healy to advise, . documented in this encounter Plan of Treatment Upcoming Encounters Date Type Department Care Team (Late st Contact Info) Description 04/22/2024 10:00 AM EDT Home Visit [facility] [address] [place] [address] Nikolay Wu, AISHA [address] [place] [address] 04/27/2024 2:00 PM EDT Pharmacy Family Practice [facility] 293 [facility], [place] [address] College, Pharmacist [address], [place] [address] 04/27/2024 2:20 PM EDT Office Visit Family Practice [facility] 293 [facility], [place] [phone] Florentin Calvo, DO 293 [facility], [place] [address] 05/04/2024 3:30 PM EDT Office Visit Hematology/Oncolog y [facility] [address] [facility], [place] [address] Nereyda Metz CRNP 400 [facility] [place] [address] 05/06/2024 10:00 AM EDT Scheduled Telephone [facility], [facility] [address] [place] [address] Coordinator, [facility] [address] [place] [address] 05/21/2024 12:46 PM EDT Hospital Encounter OR [facility], Operating Room, [facility] - 4th Floor [address] [place] [address] Jana Vieria, DO [address] [place] [address] 05/21/2024 12:46 PM EDT - 05/21/2024 1:31 PM EDT Surgery OR [facility], Operating Room, [facility] - 4th Floor [address] [place] [phone] Jana Vieira, DO [address] [place] [address] COLONOSCOPY FLEXIBLE PROXIMAL DIAGNOSTIC 06/03/2024 2:15 PM EDT Office Visit Ophthalmology, [facility] 132 [facility] [place] [address] Wilbur Benavides, DO [address] [place] [address] 06/09/2024 8:50 AM EDT Office Visit Vascular Surgery, [facility] 132 [facility] [place] [address] Aj Sahni MD [address] [place] [address] 07/01/2024 2:30 PM EST Office Visit Gastroenterology, [facility] 132 [facility] [place] [address] Lacy Ronquillo CRNP 132 [facility] [place] [address] 08/09/2024 1:00 PM EST Nurse Only Ancillary [address] [address] College, Nurse Annual Wellness Visit [address] [address] Scheduled Orders Name Type Priority Associated Diagnoses Orde r Schedule CBC WITH WBC DIFFERENTIAL Lab Routine Iron deficiency anemia, unspecified iron deficiency anemia type Expected: 04/26/2024, Expires: 04/19/2025 COMPREHENSIVE METABOLIC PANEL Lab STAT Chronic kidney disease, stage 3b (HCC) Expected: 04/26/2024, Expires: 04/19/2025 Scheduled Procedures Name Priority Associated Diagnoses Date/Ti [...] COPD 07/31/2024 07/31/2023 CKD PHOS USE SMARTSET 87994 08/19/202407/26, 05/01/2022, 04/03/2022, Additional history exists Diabetic Foot Exam 09/15/2024 09/15/2023, 0 10/01/2022, 10/26/2021, Additional history exists Depression Monitoring 09/29/2024 09/29/2023 GFR 09/30/2024 03/30/2024, 02/23, 03/02/2024, Additional history exists Albumin/Creatinine Ratio 12/08/2024 024, 02/21/2023, 05/01/2022, Additional history exists TSH 03/15/2025 03/15/2024, 02/23, 12/08/2023, Additional history exists CKD HGB USE SMARTSET 34311 03/30/202503/30, 03/30/2024, 03/15/2024, Additional history exists DXA [...] this encounter Medical Devices Implanted Type Area Recapper Device Identifier Shelf Expiration Date Model / Serial / Lot Cath Thermodilution 6fr - [id number] Implanted:Qty: 1 on 01/24/2023 [place] Wilbur Rivera [place] [facility] [place] [employer] [id number] 10/15/2024 [id number] / / [id number] Clip Delivery Sytem G4 Xt - [id number] Implanted:Qty: 1 on 03/10/2023 [place] [facility] [place] [employer] [id number] 04/15/2023 [id number] / / [id number] Clip Delivery Sytem G4 Xtw - [id number] Implanted:Qty: 1 on 03/10/2023 [place] [facility] [place] [employer] [id number] 12/06/2023 [id number] / / [id number] Mirtaclip G4 - [id number] Implanted:Qty: 1 on 03/10/2023 [place] [facility] [place] [employer] 11/19/2023 [id number] / / [id number] Device Watchman Flx 31mm - [id number] Implanted:Qty: 1 on 07/31/2023 by Wilbur Rivera [place] [facility] [place] [employer] : INTRV CARD [id number] 12/02/2025 [id number] documented as of this encounter Visit Diagnoses Diagnosis Iron deficiency anemia, unspecified iron deficiency anemia type- Primary Chronic kidney disease, stage 3b (HCC) Diarrhea, unspecified type History of diverticulitis documented in this encounter Advance Directives Documents on File Type Date Recorded Patient Research Asst Expl anation Advance Directives and Living Will 11/29/2022 ADVANCE DIRECTIVE / LIVING WILL Power of Coding Specialist 11/29/2022 POWER OF A TTORNEY Advance Directives and Living Will 10/24/2014 ADVANCE DIRECTIVE / LIVING WILL Power of Coding Specialist 10/24/2014 POWER OF A TTORNEY [...] the patient have Health Care Power of Coding Specialist? No * No Code Date [...] File Name Relationship Healthcare Agent [facility] Bright [place] Adult Child Health Care Agen t (per Health Care Power of Coding Specialist document) Care Teams Artist Suspect Relationship Specialty Start Date End Date Florentin Calvo DO [address] [place] [address] PCP - General Internal Medicine 02/06/24 documented as of this encounter
--- OUTSIDE RECORDS SUMMARY | 2024-05-14 04:38 | External Medical Summary | Summary of Care ---
Author Name Unknown Organization [facility] Address [address] [place] [address] Phone [phone] Care Team Providers Care Overcoiler Name Role Phone Florentin Calvo DO Primary Care Provider [phone] Reason for Visit * Reason Onset Date Comments [facility]: Maintenance 04/16/2024 Encounter Details Date Type Department Care Team (Late st Contact Info) Description 04/16/2024 1:15 PM EDT Scheduled Telephone [facility], [facility] 132 [facility] [place] [address] Coordinator, [facility] 132 [facility] [place] [address] Allergies Active Allergy Reactions Criticality Noted Date [...] as of this encounter (statuses as of 04/16/2024) Medications Medication Sig Dispensed Refills Start Date End Date Status ShopSocially w/Device KitIndications:Type 2 diabetes mellitus with hemoglobin [...] DIRECTED 100 Tablet 3 03/31/2023 Active Ipratropium [place] 0.03 % Nasal Solution (Atrovent)Indication s:Chronic rhinitis Administer 2 Sprays into nostril in the morning and 2 Sprays before bedtime. 90 mL 3 04/01/2023 Active Allopurinol 300 MG Oral Tablet (Zyloprim) Take 1 Tablet by mouth at bedtime. 90 Tablet 3 05/16/2023 Active Tiotropium [place]-Olodaterol 2.5-2.5 MCG/ACT Inhalation Aerosol Solution (Stiolto Respimat) [...] 24 Hour (toPROL XL)Indications:Parox ysmal atrial fibrillation ([facility] [...] (Demadex)Indications :Chronic diastolic CHF (congestive heart failure) ([facility] :Compression fracture of T12 vertebra, initial encounter ([facility]) Administer 1 spray into 1 nostril for suspected opioid overdose. Seek immediate medical attention. [email or web address] 1 Each 3 03/16/2024 5 Active fentaNYL [...] as needed for Pain, Breakthrough. 03/30/2024 Active Molnupiravir 200 MG Oral CapsuleIndications:C OVID-19 virus infection Take 4 Capsules by mouth in the morning and 4 Capsules before bedtime. Do all this for 5 days. 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 No-NOOKSACK can hear w/ hearing aid 03/07/2023 Are [...] encounter Miscellaneous Notes * Telephone Encounter - Savanna Lira RN - 04/16/2024 12:34 PM EDT [facility] Telephonic Nurse Follow-Up Call [facility] Subprogram: Focused Care Management (3-9 months) Follow Up Call Type: Routine follow up call / Status Check Acute issue requiring follow-up call: Other: follow up call, discharged from [facility] on 04/15 Objective: 04/09/2024 9:59 AM 04/06/2024 3:12 PM 03/31/2024 10:47 AM 03/30/2024 10:59 AM 03/15/2024 4:08 PM VITALS ACROSS ENCOUNTERS BP 116/62 100/50 116/60 114/74 114/54 Pulse 84 77 74 82 88 Weight 71.9 kg 72.3 kg 72.8 kg BMI 26.39 26.54 26.69 BMI 26.39 kg/m2 26.54 kg/m2 26.69 kg/m2 Remote Patient Monitoring: NONE Oxygen Needs: NO supplemental oxygen needs identified DME Needs: NO DME needs identified Medications: No medication or dose adjustments made during acute episode Patient completed 3 day course of Remdesivir while in the hospital Subjective: Condition Status: Improvement in symptoms but not at baseline Current Concerns: Called and spoke with son/ Bright, he stated "his mother is home and feeling good." Son states " his mother is just a little tired from having Covid and the medication she was given to treat Covid". No new complaints or concerns today. Son aware his mother is scheduled for a HV with [facility] next week but her condition changes or worsens before then to call. Disposition: Weekend call scheduled Future Visits Scheduled: Future Appointments-next 60 days Date/Time Provider Specialty Dept Phone 04/16/2024 1:15 PM Coordinator, [facility] [phone] 04/17/2024 1:00 PM Sandra, Nurse [facility] [phone] 04/20/2024 3:40 PM (Arrive by 3:25 PM) Florentin Calvo DO Family Medicine [phone] 04/22/2024 10:00 AM Nikolay Wu RN [facility] [phone] 06/03/2024 2:15 PM Wilbur Benavides DO Ophthalmology [phone] 07/01/2024 2:30 PM (Arrive by 2:15 PM) Lacy Ronquillo CRNP Gastroenterology [phone] 08/09/2024 1:00 PM College, Nurse Annual Wellness Visit [address] [place] [address] Savanna Lira RN [facility] Registered Nurse Navigator Triage documented in this encounter Plan of Treatment Upcoming Encounters Date Type Department Care Team (Late st Contact Info) Description 04/17/2024 1:00 PM EDT Home Visit [facility] [place], [facility] 132 [facility] [place] [address] Region, Nurse [place] [address] [place] [address] 04/20/2024 3:40 PM EDT Office Visit Family Practice [address], [place] 293 [facility] [place] [address] Florentin Calvo, DO 293 [facility] [place] [address] 04/22/2024 10:00 AM EDT [facility], [facility] [address] [place] [address] Nikolay Wu, AISHA [address] [place] [address] 05/21/2024 12:46 PM EDT Hospital Encounter OR [facility], Operating Room, [facility] - 4th Floor [address] [place] [address] Jana Vieira, DO [address] [place] [address] 05/21/2024 12:46 PM EDT - 05/21/2024 1:31 PM EDT Surgery OR [facility], Operating Room, [facility] - 4th Floor [address] [place] [address] Jana Vieira, DO [address] [place] [address] COLONOSCOPY FLEXIBLE PROXIMAL DIAGNOSTIC 06/03/2024 2:15 PM EDT Office Visit Ophthalmology, [facility] [address] [place] [address] Wilbur Benavides, DO [address] [place] [address] 07/01/2024 2:30 PM EST Office Visit Gastroenterology, [facility] [address] [place] [address] Lacy Ronquillo CRNP [address] [place] [address] 08/09/2024 1:00 PM EST Nurse Only Ancillary 65 [facility] 293 [facility], [place] [address] College, Nurse Annual Wellness Visit [address] [facility] 293 [facility], [place] [address] Scheduled Procedures Name Priority Associated Diagnoses Date/Ti [...] COPD 07/31/2024 07/31/2023 CKD PHOS USE SMARTSET 07237 08/19/202407/26, 05/01/2022, 04/03/2022, Additional history exists Diabetic Foot Exam 09/15/2024 09/15/2023, 0 10/01/2022, 10/26/2021, Additional history exists Depression Monitoring 09/29/2024 09/29/2023 GFR 09/30/2024 03/30/2024, 02/23, 03/02/2024, Additional history exists Albumin/Creatinine Ratio 12/08/2024 024, 02/21/2023, 05/01/2022, Additional history exists TSH 03/15/2025 03/15/2024, 02/23, 12/08/2023, Additional history exists CKD HGB USE SMARTSET 22758 03/30/202503/30, 03/30/2024, 03/15/2024, Additional history exists DXA [...] this encounter Medical Devices Implanted Type Area Thrill Performer Device Identifier Shelf Expiration Date Model / Serial / Lot Cath Thermodilution 6fr - [id number] Implanted:Qty: 1 on 01/24/2023 by Wilbur Rivera MD at [facility] [place] [employer] [id number] 10/15/2024 [id number] / / [id number] Clip Delivery Sytem G4 Xt - [id number] Implanted:Qty: 1 on 03/10/2023 at [facility] [place] [employer] [id number] 04/15/2023 [id number] / / [id number] Clip Delivery Sytem G4 Xtw - [id number] Implanted:Qty: 1 on 03/10/2023 at [facility] [place] [employer] [id number] 12/06/2023 [id number] / / [id number] Mirtaclip G4 - [id number] Implanted:Qty: 1 on 03/10/2023 at [facility] [email or web address] 11/19/2023 [id number] / / [id number] Device Watchman Flx 31mm - [id number] Implanted:Qty: 1 on 07/31/2023 by Wilbur Rivera MD at [facility] [employer] : INTRV CARD [id number] 12/02/2025 [id number] / [id number] documented as of this encounter Advance Directives Documents on File Type Date Recorded Patient Box Sorter Expl anation Advance Directives and Living Will 11/29/2022 ADVANCE DIRECTIVE / LIVING WILL Power of Director Of Development 11/29/2022 POWER OF A TTORNEY Advance Directives and Living Will 10/24/2014 ADVANCE DIRECTIVE / LIVING WILL Power of Director Of Development 10/24/2014 POWER OF A TTORNEY [...] the patient have Health Care Power of Director Of Development? No * No Code Date [...] (per Health Care Power of Director Of Development document) Care Teams Overcoiler Relationship Specialty Start Date End Date Florentin Calvo DO [address] [place] [address] PCP - General Internal Medicine 02/06/24 documented as of this encounter
--- OUTSIDE RECORDS SUMMARY | 2024-05-14 04:38 | External Medical Summary | Summary of Care ---
Author Name Unknown Organization [facility] Address [address] [place] [address] Phone [phone] Care Team Providers Care Experimental Preflight Mechanic Name Role Phone Florentin Calvo DO Primary Care Provider [phone] Reason for Visit * Reason Onset Date Comments Appointment 04/19/2024 Encounter Details Date Type Department Care Team (Late st Contact Info) Description 04/19/2024 Telephone [facility], [place] [address] [place] [address] Services, Scheduling [address] [place] [address] Appointment Allergies Active Allergy Reactions Criticality Noted [...] Dispensed Refills Start Date End Date Status [employer]ak Systems Verio w/Device KitIndications:Type 2 diabetes mellitus [...] (Lipitor)Indications :PVD (peripheral vascular disease) ([facility]),Type 2 diabetes mellitus with stage 3a chronic kidney disease and hypertension ([facility]) TAKE ONE TABLET BY MOUTH EVERY DAY DIRECTED 100 Tablet 3 03/31/2023 Active Ipratropium [place] 0.03 % Nasal Solution (Atrovent)Indication s:Chronic rhinitis Administer 2 Sprays into nostril in the morning and 2 Sprays before bedtime. 90 mL 3 04/01/2023 Active Allopurinol 300 MG Oral Tablet (Zyloprim) Take 1 Tablet by mouth at bedtime. 90 Tablet 3 05/16/2023 Active Tiotropium [place]ba-Olodaterol 2.5-2.5 MCG/ACT Inhalation Aerosol Solution (Stiolto Respimat) [...] T12 vertebra, initial encounter ([facility]) Administer 1 spray into 1 nostril for suspected opioid overdose. Seek immediate medical attention. 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 No-ALGAACIQ can hear w/ hearing aid 03/07/2023 Are [...] Telephone Encounter - Wiley Benjamin OSA - 04/19/2024 9:41 AM EDT Incoming call from pts daughter needing to reschedule appt 04/22. While on the phone trying to schedule an alternative appt, there was a connection disruption and the call was lost. documented in this encounter Plan of Treatment Upcoming Encounters Date Type Department Care Team (Late st Contact Info) Description 04/22/2024 10:00 AM EDT Home Visit [facility], [facility] [address] [place] [address] Nikolay Wu, AISHA [address] [place] [address] 04/27/2024 2:00 PM EDT Pharmacy Family Practice 65 [facility] 293 [facility], [place] [address] College, Pharmacist [address], [place] [address] 04/27/2024 2:20 PM EDT Office Visit Family Practice 65 [facility] 293 [facility], [place] [address] Florentin Calvo, DO 293 [facility], [place] [address] 05/04/2024 3:30 PM EDT Office Visit Hematology/Oncolog y [facility] [place] [address] [place], [place] [phone] Nereyda Metz, SPECIAL LOAN OFFICER [address] [place] [address] 05/06/2024 10:00 AM EDT Scheduled Telephone [facility], [facility] [address] [place] [address] Coordinator, [facility] [address] [place] [address] 05/21/2024 12:46 PM EDT Hospital Encounter OR [facility], Operating Room, [facility] - 4th Floor [address] [place] [address] Jana Vieira, DO [address] [place] [address] 05/21/2024 12:46 PM EDT - 05/21/2024 1:31 PM EDT Surgery OR [facility], Operating Room, [facility] - 4th Floor [address] [place] [address] Jana Vieira, DO [address] [place] [address] COLONOSCOPY FLEXIBLE PROXIMAL DIAGNOSTIC 06/03/2024 2:15 PM EDT Office Visit Ophthalmology, [facility] [address] [place] [address] Wilbur Benavides, DO [address] [facility] [place] [address] 06/09/2024 8:50 AM EDT Office Visit Vascular Surgery, [facility] [address] [place] [address] Aj Sahni MD [address] [facility] [place] [address] 07/01/2024 2:30 PM EST Office Visit Gastroenterology, [facility] 132 [facility] [place] [address] Lacy Ronquillo CRNP 132 [facility] [place] [address] 08/09/2024 1:00 PM EST Nurse Only Ancillary 65 [facility] 293 [facility] [place] [address] College, Nurse Annual Wellness Visit 65 [facility] 293 [facility] [place] [address] Scheduled Procedures Name Priority Associated Diagnoses Date/Ti [...] COPD 07/31/2024 07/31/2023 CKD PHOS USE SMARTSET 02343 08/19/202407/26, 05/01/2022, 04/03/2022, Additional history exists Diabetic Foot Exam 09/15/2024 09/15/2023, 0 10/01/2022, 10/26/2021, Additional history exists Depression Monitoring 09/29/2024 09/29/2023 GFR 09/30/2024 03/30/2024, 02/23, 03/02/2024, Additional history exists Albumin/Creatinine Ratio 12/08/2024 024, 02/21/2023, 05/01/2022, Additional history exists TSH 03/15/2025 03/15/2024, 02/23, 12/08/2023, Additional history exists CKD HGB USE SMARTSET 35526 03/30/202503/30, 03/30/2024, 03/15/2024, Additional history exists DXA [...] this encounter Medical Devices Implanted Type Area Defensive Driving Instructor Device Identifier Shelf Expiration Date Model / Serial / Lot Cath Thermodilution 6fr - [id number] Implanted:Qty: 1 on 01/24/2023 by Wilbur Rivera [place] [facility] [employer]Am[employer] (Smart Operational Agricultural toolKit) TERE [id number] 10/15/2024 [id number] / / [id number] Clip Delivery Sytem G4 Xt - [id number] Implanted:Qty: 1 on 03/10/2023 at [facility] [employer] Schouer [id number] 04/15/2023 [id number] T / / [id number] Clip Delivery Sytem G4 Xtw - [id number] Implanted:Qty: 1 on 03/10/2023 at [facility] [employer] Schouer [id number] 12/06/2023 [id number] TW / / [id number] Mirtaclip G4 - [id number] Implanted:Qty: 1 on 03/10/2023 at [facility] [employer] Schouer 11/19/2023 [id number] / / [id number] Device Watchman Flx 31mm - [id number] Implanted:Qty: 1 on 07/31/2023 by Wilbur Rivera MD at [facility] [employer] : INTRV CARD [id number] 12/02/2025 [id number] / [id number] documented as of this encounter Advance Directives Documents on File Type Date Recorded Patient Fitting Room Supervisor Expl anation Advance Directives and Living Will 11/29/2022 ADVANCE DIRECTIVE / LIVING WILL Power of Flight Radio Officer 11/29/2022 POWER OF A TTORNEY Advance Directives and Living Will 10/24/2014 ADVANCE DIRECTIVE / LIVING WILL Power of Flight Radio Officer 10/24/2014 POWER OF A TTORNEY * Full [...] the patient have Health Care Power of Flight Radio Officer? No * No Code Date Activated Date [...] Name Relationship Healthcare Agent Relationshi p Communication [facility] Adult Child Health Care Agen t (per Health Care Power of Flight Radio Officer document) Care Teams Experimental Preflight Mechanic Relationship Specialty Start Date End Date Florentin Calvo DO [address] [place] [address] PCP - General Internal Medicine 02/06/24 documented as of this encounter
--- OUTSIDE RECORDS SUMMARY | 2024-05-14 04:38 | External Medical Summary | Summary of Care ---
Author Name Unknown Organization [facility] Address [address] [place] [address] Phone [phone] Care Team Providers Care Shoemaking Finisher Name Role Phone Florentin Calvo DO Primary Care Provider [phone] Encounter Details Date Type Department Care Team (Late st Contact Info) Description 04/15/2024 Population Health External Data Unspecified Department Allergies [...] as of this encounter (statuses as of 04/15/2024) Medications Medication Sig Dispensed Refills Start Date End Date Status VidaveeTouch Verio w/Device KitIndications:Type 2 diabetes mellitus with [...] for Wheezing. 15 g 12 06/13/2022 Active VidaveeTouch PushCoin In Vitro Strip (Glucose Blood) Test blood sugars up to 2 times a day E11.9 200 Strip 3 12/20/2022 Active Atorvastatin Calcium 20 MG Oral Tablet (Lipitor)Indications :PVD (peripheral vascular disease) ([facility]),Type 2 diabetes mellitus with stage 3a chronic kidney disease and hypertension ([facility]) TAKE ONE TABLET BY MOUTH EVERY DAY DIRECTED 100 Tablet 3 03/31/2023 Active Ipratropium [place] 0.03 % Nasal Solution (Atrovent)Indication s:Chronic rhinitis Administer 2 Sprays into nostril in the morning and 2 Sprays before bedtime. 90 mL 3 04/01/2023 Active Allopurinol 300 MG Oral Tablet (Zyloprim) Take 1 Tablet by mouth at bedtime. 90 Tablet 3 05/16/2023 Active Tiotropium [place]-Olodaterol 2.5-2.5 MCG/ACT Inhalation Aerosol Solution (Stiolto Respimat) [...] :Compression fracture of T12 vertebra, initial encounter ([facility]) Administer 1 spray into 1 nostril for suspected opioid overdose. Seek immediate medical attention. [email or web address] 1 Each 3 03/16/2024 5 Active fentaNYL 12 MCG/HR Transdermal Patch 72 HourIndications:Comp ression fracture of T12 vertebra, initial encounter ([facility]) Place 1 Patch over 72 hours [...] this for 5 days. 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 Never true 02/05/20 24 Within the past 12 months, t [...] Team (Late st Contact Info) Description 04/20/2024 3:40 PM EDT Office Visit Family Practice [address] [place] 293 [place] [address] Florentin Calvo, DO [address] [place] [address] 04/22/2024 10:00 AM EDT Home Visit [facility] [address] [address] [address] Nikolay Wu RN [address] [address] 05/21/2024 12:46 PM EDT Hospital Encounter OR [facility], Operating Room, [facility] - 4th Floor [address] [place] [address] Jana Vieira, DO [address] [place] [address] 05/21/2024 12:46 PM EDT - 05/21/2024 1:31 PM EDT Surgery OR [facility], Operating Room, [facility] - 4th Floor [address] [place] [phone] Jana Vieira, [address] [place] [address] COLONOSCOPY FLEXIBLE PROXIMAL DIAGNOSTIC 06/03/2024 2:15 PM EDT Office Visit Ophthalmology, [facility] 132 [facility] [place] [address] Wilbur Benavides DO [address] [place] [address] 07/01/2024 2:30 PM EST Office Visit Gastroenterology, [facility] 132 [facility] [place] [address] Lacy Ronquillo CRNP 132 [facility] [place] [address] 08/09/2024 1:00 PM EST Nurse Only Ancillary 65 [facility] 293 [place] [address] College, Nurse Annual Wellness Visit [address] [place] [address] Scheduled Procedures Name Priority Associated Diagnoses Date/Ti [...] COPD 07/31/2024 07/31/2023 CKD PHOS USE SMARTSET 79830 08/19/202407/26, 05/01/2022, 04/03/2022, Additional history exists Diabetic Foot Exam 09/15/2024 09/15/2023, 0 10/01/2022, 10/26/2021, Additional history exists Depression Monitoring 09/29/2024 09/29/2023 GFR 09/30/2024 03/30/2024, 02/23, 03/02/2024, Additional history exists Albumin/Creatinine Ratio 12/08/2024 024, 02/21/2023, 05/01/2022, Additional history exists TSH 03/15/2025 03/15/2024, 02/23, 12/08/2023, Additional history exists CKD HGB USE SMARTSET 71397 03/30/202503/30, 03/30/2024, 03/15/2024, Additional history exists DXA [...] this encounter Medical Devices Implanted Type Area Automobile Body Worker Device Identifier Shelf Expiration Date Model / Serial / Lot Cath Thermodilution 6fr - [id number] Implanted:Qty: 1 on 01/24/2023 by Wilbur Rivera MD at [facility] [place] [employer] TERE [id number] 10/15/2024 [id number] / / [id number] Clip Delivery Sytem G4 Xt - [id number] Implanted:Qty: 1 on 03/10/2023 at [facility] [employer] [id number] 04/15/2023 [id number] T / / [id number] Clip Delivery Sytem G4 Xtw - [id number] Implanted:Qty: 1 on 03/10/2023 at [facility] [employer] [id number] 12/06/2023 [id number] TW / / [id number] Mirtaclip G4 - [id number] Implanted:Qty: 1 on 03/10/2023 at [facility] [employer] 11/19/2023 [id number] / / [id number] Device Watchman Flx 31mm - [id number] Implanted:Qty: 1 on 07/31/2023 by Wilbur Rivera MD at [facility] [employer] : INTRV CARD [id number] 12/02/2025 [id number] / / [id number] documented as of this encounter Advance Directives Documents on File Type Date Recorded Patient Digital Imaging Specialist Expl anation Advance Directives and Living Will 11/29/2022 ADVANCE DIRECTIVE / LIVING WILL Power of Organizational Development Manager 11/29/2022 POWER OF A TTORNEY Advance Directives and Living Will 10/24/2014 ADVANCE DIRECTIVE / LIVING WILL Power of Organizational Development Manager 10/24/2014 POWER OF A TTORNEY * [...] the patient have Health Care Power of Organizational Development Manager? No * No Code Date Activated [...] Agents on File Name Relationship Healthcare Agent [facility] p Communication [facility] Adult Child Health Care Agen t (per Health Care Power of Organizational Development Manager document) Care Teams Shoemaking Finisher Relationship Specialty Start Date End Date Florentin Calvo DO [address] [place] [address] PCP - General Internal Medicine 02/06/24 documented as of this encounter
--- OUTSIDE RECORDS SUMMARY | 2024-05-14 04:38 | External Medical Summary | Summary of Care ---
Author Name Unknown Organization [facility] Address [address] [place] [address] Phone [phone] Care Team Providers Care Produce Team Lead Name Role Phone Florentin Calvo DO Primary Care Provider [phone] Reason for Visit * Reason Onset Date Comments Appointment 04/19/2024 Encounter Details Date Type Department Care Team (Late st Contact Info) Description 04/19/2024 Telephone [facility], [place] [address] [place] [address] Services, Scheduling [address] [place] [address] Appointment Allergies Active Allergy Reactions Criticality Noted [...] Dispensed Refills Start Date End Date Status Automattic Verio w/Device KitIndications:Type 2 diabetes mellitus with [...] DIRECTED 100 Tablet 3 03/31/2023 Active Ipratropium [place] 0.03 % Nasal Solution (Atrovent)Indication s:Chronic rhinitis Administer 2 Sprays into nostril in the morning and 2 Sprays before bedtime. 90 mL 3 04/01/2023 Active Allopurinol 300 MG Oral Tablet (Zyloprim) Take 1 Tablet by mouth at bedtime. 90 Tablet 3 05/16/2023 Active Tiotropium [place]-Olodaterol 2.5-2.5 MCG/ACT Inhalation Aerosol Solution (Stiolto Respimat) [...] suspected opioid overdose. Seek immediate medical attention. 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 No-TUNTUTULIAK can hear w/ hearing aid 03/07/2023 Are [...] Encounter - Wiley Benjamin OSA - 04/19/2024 10:36 AM EDT Placed return call to dt Kathy and appt rescheduled with Nikolay Wu for 05/06. Dt agreeable. documented in this encounter Plan of Treatment Upcoming Encounters Date Type Department Care Team (Late st Contact Info) Description 04/27/2024 2:00 PM EDT Pharmacy Family Practice 65 [facility] [address] [facility] [place] [address] College, Pharmacist [address] [place] [address], [place] [address] 04/27/2024 2:20 PM EDT Office Visit Family Practice 65 [facility] [address] [facility] [place] [address] Florentin Calvo, 293 [place] [address] 05/04/2024 3:30 PM EDT Office Visit Hematology/Oncolog y [facility] [place] 200 [facility], [place] [phone] Nereyda Metz CRNP [address] [place] [id number] 05/06/2024 10:00 AM EDT Scheduled Telephone [facility], [facility] [address] [place] [address] Coordinator, [facility] [address] [place] [address] 05/06/2024 4:00 PM EDT Home Visit [facility], [facility] [address] [place] [address] Nikolay Wu, AISHA [address] [place] [address] 05/21/2024 12:46 PM EDT Hospital Encounter OR [facility], Operating Room, [facility] - 4th Floor [address] [place] [address] Jana Vieira, DO [address] [place] [address] 05/21/2024 12:46 PM EDT - 05/21/2024 1:31 PM EDT Surgery OR [facility], Operating Room, [facility] - 4th Floor [address] [place] [address] Jana Vieira, DO [address] [place] [address] COLONOSCOPY FLEXIBLE PROXIMAL DIAGNOSTIC 06/03/2024 2:15 PM EDT Office Visit Ophthalmology, [facility] [address] [place] [address] Wilbur Benavides, DO [address] [facility] [place] [address] 06/09/2024 8:50 AM EDT Office Visit Vascular Surgery, [facility] [address] [place] [address] Aj Sahni MD [address] [place] [address] 07/01/2024 2:30 PM EST Office Visit Gastroenterology, [facility] 132 [facility] [place] [address] Lacy Ronquillo CRNP 132 [facility] [place] [address] 08/09/2024 1:00 PM EST Nurse Only Ancillary 65 [facility] [address] [facility] [place] [address] College, Nurse Annual Wellness Visit [address] [place] [address] Scheduled Procedures Name Priority Associated Diagnoses Date/Ti [...] COPD 07/31/2024 07/31/2023 CKD PHOS USE SMARTSET 16286 08/19/202407/26, 05/01/2022, 04/03/2022, Additional history exists Diabetic Foot Exam 09/15/2024 09/15/2023, 0 10/01/2022, 10/26/2021, Additional history exists Depression Monitoring 09/29/2024 09/29/2023 GFR 09/30/2024 03/30/2024, 02/23, 03/02/2024, Additional history exists Albumin/Creatinine Ratio 12/08/2024 024, 02/21/2023, 05/01/2022, Additional history exists TSH 03/15/2025 03/15/2024, 02/23, 12/08/2023, Additional history exists CKD HGB USE SMARTSET 86503 03/30/202503/30, 03/30/2024, 03/15/2024, Additional history exists DXA [...] this encounter Medical Devices Implanted Type Area Rn Family Practice Device Identifier Shelf Expiration Date Model / Serial / Lot Cath Thermodilution 6fr - [id number] Implanted:Qty: 1 on 01/24/2023 by Wilbur Rivera MD at [facility] [place] [email or web address] TERE [id number] 10/15/2024 [id number] / / [id number] Clip Delivery Sytem G4 Xt - [id number] Implanted:Qty: 1 on 03/10/2023 at [facility] [employer] [id number] 04/15/2023 [id number] T / / [id number] Clip Delivery Sytem G4 Xtw - [id number] Implanted:Qty: 1 on 03/10/2023 at [facility] [employer] [id number] 12/06/2023 [id number] TW / / [id number] Mirtaclip G4 - [id number] Implanted:Qty: 1 on 03/10/2023 at [facility] [employer] 11/19/2023 [id number] / / [id number] Device Watchman Flx 31mm - [id number] Implanted:Qty: 1 on 07/31/2023 by Wilbur Rivera MD at [facility] [employer] : INTRV CARD [id number] 12/02/2025 [id number] / / [id number] documented as of this encounter Advance Directives Documents on File Type Date Recorded Patient 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 No * No Code Date Activated [...] t (per Health Care Power of Business Project Analyst document) Care Teams Produce Team Lead Relationship Specialty Start Date End Date Florentin Calvo DO 293 [facility] [place] [address] PCP - General Internal Medicine 02/06/24 documented as of this encounter
--- OUTSIDE RECORDS SUMMARY | 2024-05-14 04:38 | External Medical Summary | Summary of Care ---
Author Name Unknown Organization [facility] Address [address] [place] [address] Phone [phone] Care Team Providers Care Slasher Sawyer Name Role Phone Florentin Calvo DO Primary Care Provider Reason for Visit * Reason Comments [facility]: Transition of Care Encounter Details Date Type Department Care Team (Late st Contact Info) Description 04/17/2024 1:00 PM EDT [facility] Visit [facility], [facility] [address] [place] [address] [facility], Nurse [address] [address] COVID-19* Allergies Active Allergy Reactions Criticality Noted Date [...] as of this encounter (statuses as of 04/17/2024) Medications Medication Sig Dispensed Refills Start Date End Date Status Wisair VerKera w/Device KitIndications:Type 2 diabetes mellitus with hemoglobin [...] (Lipitor)Indications :PVD (peripheral vascular disease) ([facility]),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 90 mL 3 04/01/2023 Active Allopurinol 300 MG Oral Tablet (Zyloprim) Take 1 Tablet by mouth at bedtime. 90 Tablet 3 05/16/2023 Active Tiotropium [place]-Olodaterol 2.5-2.5 MCG/ACT Inhalation Aerosol Solution (Stiolto Respimat) [...] (toPROL XL)Indications:Parox ysmal atrial fibrillation ([facility]) Take 1 Tablet by mouth in the [...] diastolic CHF (congestive heart failure) ([facility]) Take 2 Tablets by mouth in the [...] of T12 vertebra, initial encounter ([facility]) Administer 1 spray into 1 nostril for suspected opioid overdose. Seek immediate medical attention. [email or web address]://[email or web address] [email or web address]?v=[email or web address] 1 Each 3 03/16/2024 5 Active fentaNYL 12 MCG/HR Transdermal Patch 72 HourIndications:Comp ression fracture of T12 vertebra, initial encounter ([facility]) Place 1 Patch over 72 hours topically [...] as of this encounter (statuses as of 04/17/2024) Active Problems Problem Noted Date Diagnosed Date Closed wedge compression fracture of T12 vertebr a 03/12/2024 Last Assessment & Plan: Increased oxy from 2.5mg to 5mg [id number] prn Ortho spine ref, ?kyphoplasty Constipation 03/12/2024 [...] mitral valve clip implantation 03/06/2023 Atherosclerosis of [place] 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 02/13/2023 [...] sleep apnea of adult 09/09/2014 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 Last Assessment & Plan: Now just [...] as of this encounter (statuses as of 04/17/2024) Resolved Problems Problem Noted Date Diagnosed Date [...] as of this encounter (statuses as of 04/17/2024) Immunizations Name Administration Dates Next Due COVID-19 [...] Reading Time Taken Comments Blood Pressure 102/60 04/17/2024 1:05 PM EDT Pulse 76 04/17/2024 1:05 PM EDT Temperature 36.5 C (97.7 F) 04/17/2024 1:05 PM ED T Respiratory Rate 18 04/17/2024 1:05 PM EDT Oxygen Saturation 99% 04/17/2024 1:05 PM EDT Inhaled Oxygen Concentration - - Weight - - Height - - Body Mass Index - - documented in this encounter Functional Status Functional Status Response Date of Assess ment Are you deaf or do you have serious difficulty hearing? No-WIYOT can hear w/ hearing aid 03/07/2023 Are [...] as of this encounter Progress Notes * Aundrea Vogt RN - 04/17/2024 1:04 PM EDT Images from the original note were not included. [facility] Electronic Specialist Monthly Visit Date: 04/17/2024 Time: 1:04 PM Name: Inga Barakat : 1940 Situation: Pt seen today by [facility] change room attendant for EDIS #1 visit. Background: PMH includes: CHF pEF 60-65%, CAD/PVD, Afib on Eliquis, post-Watchman device, Mitral valve clip, HTN, COPD, Anermia, GERD Utilization: 8/20/24-04/15/24- [facility] admission for Acute bronchitis due to COVID-19 virus- completed 3 day course of remdesivir. Never required supplemental oxygen. Received additional dose of diuretic due to congestion noted on cxr. 03/21/24-03/25/24 [facility] admission- Uncontrolled back pain, constipation Assessment: Patient presents for visit sitting in recliner chair with legs elevated, walker in front of chair. Spouse and daughter from [place] present for visit. Spouse also positive for COVID-19 and recovering well. Feeling well today. Denies acute changes in condition. States day of admission she was feeling weak and having shaking chills. She was having difficulty ambulating due to weakness. Family called 911. Pt was admitted to [facility] States she had a near fall while inpt. She fell into the wall hitting her head and R/knee. The wallstopped her from falling to the floor. No noted injury to head Small, minimal bruise on R/knee--denies difficulty ambulating or bearing weight today. States no x-rays or testing were completed after incident at hospital. Using walker with ambulation Denies falls since return home productive cough with occasional light yellow sputum-improving Denies worsening sob--breathing is not yet back to baseline, still with increased VELASCO ambulating throughout home. SpO2 99% on RA Wears 2 lpm oxygen at bedtime-denies issues tolerating Lung sounds clear on auscultation Trace bilateral ankle edema--pt/daughter note swelling has improved from admission Pt states her L/great toe was red with mild discomfort this morning Small scab L/corner of toenail--pt is unclear how long present Does not recall hangnail or injury with toenail trimming. Slightly pink skin around nail--pt and daughter state it is not as red as it was this earlier this morning. Area is not hot/warm to touch, no open area or discharge from site. Pt reports mild tenderness with touch Instructed to keep clean, dry and use antibacterial ointment to the area. Report s/s of infection to [facility]. Pt does not routinely monitor bsg at home. Diet controlled DM T2 Diarrhea stopped when Eliquis was discontinued. Started with loose bowels when started taking remdesivir. Pt denies abdominal pain, cramping, nausea, vomiting. Appetite has been improving and daughter is pushing fluids. Medications reviewed with daughter. Daughter notes they are trying to reduce oxycodone--has not given her a dose since d/c home. Pain management for back(recent compression fracture)--Fentanyl patch, Tylenol as needed Oxycodone for break through pain Pt states her back has been tight Recommendations: Continue to take medications as ordered Keep medical follow up appt's Fall precautions Instructed to report any signs of infection: Redness, swelling, uncontrolled pain, green/yellow drainage, foul odor or fever. Report worsening diarrhea or more than 3 watery stools/day. Continue with LE elevation for edema-low sodium diet Continue with adequate oral hydration Call [facility] at with any new or worsening health concerns or problems, red flag symptoms. EDIS#2-[facility] RNCM f/u 04/22 EDIS#3-[facility] referral -week of 04/26-04/30/24 EDIS#4-nurse phone f/u Physical Exam: BP 102/60 | Pulse 76 | Temp 36.5 C (97.7 F) (Infrared ) | SpO2 99% Physical Exam Constitutional: General: She is not in acute distress. HENT: Head: Normocephalic and atraumatic. Nose: Nose normal. Mouth/Throat: Mouth: Mucous membranes are moist. Cardiovascular: Rate and Rhythm: Normal rate and regular rhythm. Pulses: Normal pulses. Heart sounds: Normal heart sounds. Pulmonary: Effort: Pulmonary effort is normal. No respiratory distress. Breath sounds: Normal breath sounds. No wheezing, rhonchi or rales. Abdominal: General: Bowel sounds are normal. There is no distension. Palpations: Abdomen is soft. Tenderness: There is no abdominal tenderness. Musculoskeletal: General: Swelling (trace bilateral ankles) present. Skin: General: Skin is warm and dry. Neurological: Mental Status: She is alert and oriented to person, place, and time. Problems/Symptoms: Review of Systems Constitutional: Positive for appetite change. Negative for chills, diaphoresis, fatigue and fever. HENT: Positive for congestion. Respiratory: Positive for cough and shortness of breath. Negative for chest tightness and wheezing. Cardiovascular: Positive for leg swelling. Negative for chest pain and palpitations. Gastrointestinal: Positive for diarrhea. Negative for abdominal distention, abdominal pain, blood in stool, constipation, nausea and vomiting. Genitourinary: Negative for difficulty urinating, dysuria, hematuria and urgency. Musculoskeletal: Positive for arthralgias, back pain and gait problem. Skin: Positive for wound (L/great toe). Neurological: Negative for dizziness, weakness, light-headedness and headaches. Hematological: Negative. Psychiatric/Behavioral: Negative. Medication Reconciliation: (See medication list) Does patient take medications as ordered: Yes Patient Well Being: PHQ2/9: No questionnaires available. [facility]-10 Completed this Visit: Yes. [facility]-10: Reason Completed: Status post fall Status post ED visit/hospital admission [facility]-10 Interventions: Fall education provided, reviewed/provided Fall brochure Confirmed current care and supervision in home: daughter, PERS unit Advanced Care Planning: Living Will. and Healthcare [...] if at night -increased fatigue or vertigo Instructed to report any signs of infection: Redness, swelling, uncontrolled pain, green/yellow drainage, foul odor or fever. Reinforced safety education and fall prevention. and Reinforced medication regimen. Timing., Dosing., and Purspose. Home Interventions Provided: Reinforced current Plan of Care, including self-management and medication regimen Patient's 'Red Flags': Increased SOB above baseline Wt gain of 2-3 lbs in 24 hrs or 5 lbs in one week Increased weakness/fatigue Patient Needs to Remember: Call [facility] at with any new or worsening health concerns or problems, red flag symptoms. Referrals Needed: TRU Follow Up: Is there cellular connectivity/connectivity in the home? Yes Does the patient have internet in the home? Yes Patient encouraged to call the intake phone number for all urgent but not emergent issues. Is the patient new to [facility] within the last 30 days? No, Assess appropriateness for upcoming telehealth visits. Cancel telehealth visits & schedule home visit with care bioinformatics team member(s)as indicated. Provider is in agreement with Plan of Care: Yes Scheduled to follow up with patient in 1 week. Aundrea Vogt RN 04/17/2024 1:04 PM documented in this encounter Plan of Treatment Upcoming Encounters Date Type Department Care Team (Late st Contact Info) Description 04/20/2024 3:40 PM EDT Office Visit Family Practice [address], [place] [address] [place] [address] Florentin Calvo, [address] [place] [address] 04/22/2024 10:00 AM EDT Home Visit [facility] [address] [place] [address] Nikolay Wu, AISHA [address] [place] [address] 05/06/2024 10:00 AM EDT Scheduled Telephone [facility], [facility] [address] [facility] [place] [address] Coordinator, [facility] [address] [place] [address] 05/21/2024 12:46 PM EDT Hospital Encounter [facility], Operating Room, [facility] - 4th Floor [address] [facility] [place] [address] Jana Vieira, DO [address] [facility] [place] [address] 05/21/2024 12:46 PM EDT - 05/21/2024 1:31 PM EDT Surgery [facility], Operating Room, [facility] - 4th Floor [address] [facility] [place] [phone] Jana Vieira, DO [address] [facility] [place] [address] COLONOSCOPY FLEXIBLE PROXIMAL DIAGNOSTIC 06/03/2024 2:15 PM EDT Office Visit Ophthalmology, [facility] [address] [facility] [place] [address] Wilbur Benavides, DO [address] [facility] [place] [address] 07/01/2024 2:30 PM EST Office Visit Gastroenterology, [facility] [address] [facility] [place] [address] Lacy Ronquillo CRNP [address] [facility] [place] [address] 08/09/2024 1:00 PM EST Nurse Only Ancillary [address] [place] [address] [place] [address] College, Nurse Annual Wellness Visit [address] [facility] [place] [address] Scheduled Procedures Name Priority Associated Diagnoses Date/Ti [...] COPD 07/31/2024 07/31/2023 CKD PHOS USE SMARTSET 67172 08/19/202407/26, 05/01/2022, 04/03/2022, Additional history exists Diabetic Foot Exam 09/15/2024 09/15/2023, 0 10/01/2022, 10/26/2021, Additional history exists Depression Monitoring 09/29/2024 09/29/2023 GFR 09/30/2024 03/30/2024, 02/23, 03/02/2024, Additional history exists Albumin/Creatinine Ratio 12/08/2024 024, 02/21/2023, 05/01/2022, Additional history exists TSH 03/15/2025 03/15/2024, 02/23, 12/08/2023, Additional history exists CKD HGB USE SMARTSET 45891 03/30/202503/30, 03/30/2024, 03/15/2024, Additional history exists DXA [...] this encounter Medical Devices Implanted Type Area Arts Therapist Device Identifier Shelf Expiration Date Model / Serial / Lot Cath Thermodilution 6fr - [id number] Implanted:Qty: 1 on 01/24/2023 by Wilbur Rivera MD at [facility] [place] [employer] TERE [id number] 10/15/2024 [id number] / / [id number] Clip Delivery Sytem G4 Xt - [id number] Implanted:Qty: 1 on 03/10/2023 at [facility] [place] [employer] [id number] 04/15/2023 [id number] / / [id number] Clip Delivery Sytem G4 Xtw - [id number] Implanted:Qty: 1 on 03/10/2023 at [facility] [place] [employer] [id number] 12/06/2023 [id number] / / [id number] Mirtaclip G4 - [id number] Implanted:Qty: 1 on 03/10/2023 at [facility] [place] [employer] 11/19/2023 [id number] / / [id number] Device Watchman Flx 31mm - [id number] Implanted:Qty: 1 on 07/31/2023 by Wilbur Rivera MD at [facility] : INTRV CARD [id number] 12/02/2025 [id number] documented as of this encounter Visit Diagnoses Diagnosis COVID-19- Primary Diarrhea, unspecified type History of diverticulitis documented in this encounter Advance Directives Documents on File Type Date Recorded Patient 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 No * No Code Date [...] Agen t (per Health Care Power of Gear Cutting Machine Operator document) Care Teams Slasher Sawyer Relationship Specialty Start Date End Date Florentin Calvo DO [address] [facility] [place] [address] PCP - General Internal Medicine 02/06/24 documented as of this encounter
--- OUTSIDE RECORDS SUMMARY | 2024-05-14 04:38 | External Medical Summary | Summary of Care ---
Author Name Unknown Organization [facility] Address [address] [place] [address] Phone [phone] Care Team Providers Care Development Team Lead Name Role Phone Florentin Calvo DO Primary Care Provider [phone] Reason for Visit * Reason Onset Date Comments Appointment 04/20/2024 Encounter Details Date Type Department Care Team (Late st Contact Info) Description 04/20/2024 Telephone [facility], [place] [address] [place] [address] Felicitas Starks OSA [address] [place] [address] Appointment Allergies Active Allergy Reactions [...] as of this encounter (statuses as of 04/20/2024) Medications Medication Sig Dispensed Refills Start Date End Date Status [employer] w/Device KitIndications:Type 2 diabetes mellitus with hemoglobin [...] Wheezing. 15 g 12 06/13/2022 Active OneTouch VerSparkplay Media In Vitro Strip (Glucose Blood) Test blood [...] DIRECTED 100 Tablet 3 03/31/2023 Active Ipratropium [place] 0.03 % Nasal Solution (Atrovent)Indication s:Chronic rhinitis Administer 2 Sprays into nostril in the morning and 2 Sprays before bedtime. 90 mL 3 04/01/2023 Active Allopurinol 300 MG Oral Tablet (Zyloprim) Take 1 Tablet by mouth at bedtime. 90 Tablet 3 05/16/2023 Active Tiotropium [place]-Olodaterol 2.5-2.5 MCG/ACT Inhalation Aerosol Solution (Stiolto Respimat) [...] :Compression fracture of T12 vertebra, initial encounter ([facility]) Administer 1 spray into 1 nostril for suspected opioid overdose. Seek immediate medical attention. 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 Last Assessment & Plan: Now just [...] as of this encounter (statuses as of 04/20/2024) Resolved Problems Problem Noted Date Diagnosed Date [...] as of this encounter (statuses as of 04/20/2024) Immunizations Name Administration Dates Next Due COVID-19 mRNA, LNP-s, No Pre serve, 2-Dose Series (Moderna) 06/23/2021,10/25/2020,09/28/2020 COVID-19, LNP-s, No Preserve , Larry-sucrose, Ages 12+ (DataOceans) 04/09/2022 COVID-19, MRNA-LNP, 23-24, P F, 30 MCG/0.3 mL, 12 YRS AND ABOVE, IM (Sparkplay MediaComirnaty) 06/09/2023 Covid-19, Mrna, Lnp-s, Pf, B ivalent, [...] or do you have serious difficulty hearing? No-MILLE LACS can hear w/ hearing aid 03/07/2023 Are [...] Telephone Encounter - Felicitas Starks OSA - 04/20/2024 2:33 PM EDT Per Request - Please schedule [facility] HV for EDIS#3 week of 04/26-04/26/24 Please complete VS Medication review Reinforce home safety-use of walker and wearing PERS unit Scheduled a TRU visit with Becky Green on May 05 at 3:10 pm. Spoke with patient's son andconfirmed. Patient's son did not want an appointment the first week of April. documented in this encounter Plan of Treatment Upcoming Encounters Date Type Department Care Team (Late st Contact Info) Description 04/27/2024 2:00 PM EDT Pharmacy Family Practice [address] [facility] [address] [place] [phone] College, Pharmacist [address] [place] [address] 04/27/2024 2:20 PM EDT Office Visit Family Practice [address] [facility] [address] [place] [phone] Florentin Calvo, DO 293 [place] [address] 05/04/2024 3:30 PM EDT Office Visit Hematology/Oncology [facility]ri Zamora Saffell [address] [facility] [phone] Nereyda Metz CRNP [address] [place] [address] 05/05/2024 3:10 PM EDT Home Visit Care Coordination and Integration [address] [place] [address] Becky Green, Community Health Master [employer] [address] [place] [address] 05/06/2024 10:00 AM EDT Scheduled Telephone [facility], [facility] [address] [place] [address] Coordinator, [facility], [place] [address] [place] [address] 05/06/2024 4:00 PM EDT Home Visit [facility], [facility] [address] [place] [address] Nikolay Wu, RN [address] [place] [address] 05/21/2024 12:46 PM EDT Hospital Encounter [facility], Operating Room, [facility] - 4th Floor [address] [address] Jana Vieira, DO [address] [place] [address] 05/21/2024 12:46 PM EDT - 05/21/2024 1:31 PM EDT Surgery OR [facility], Operating Room, [facility] - 4th Floor [address] [place] [address] Jana Vieira, DO [address] [place] [address] COLONOSCOPY FLEXIBLE PROXIMAL DIAGNOSTIC 06/03/2024 2:15 PM EDT Office Visit Ophthalmology, [facility] 132 [facility] [place] [address] Wilbur Benavides DO [address] [place] [address] 06/09/2024 8:50 AM EDT Office Visit Vascular Surgery, [facility] 132 [facility] [place] [address] Aj Sahni MD [address] [place] [address] 07/01/2024 2:30 PM EST Office Visit Gastroenterology, [facility] 132 [facility] [place] [address] Lacy Ronquillo CRNP 132 [facility] [place] [address] 08/09/2024 1:00 PM EST Nurse Only Ancillary [address] [address] College, Nurse Annual Wellness Visit [address] [address] Scheduled Procedures Name Priority Associated Diagnoses Date/Ti sd COLONOSCOPY FLEXIBLE PROXIMA L DIAGNOSTIC Diarrhea, unspecified [...] COPD 07/31/2024 07/31/2023 CKD PHOS USE SMARTSET 59373 08/19/202407/26, 05/01/2022, 04/03/2022, Additional history exists Diabetic Foot Exam 09/15/2024 09/15/2023, 0 10/01/2022, 10/26/2021, Additional history exists Depression Monitoring 09/29/2024 09/29/2023 GFR 09/30/2024 03/30/2024, 02/23, 03/02/2024, Additional history exists Albumin/Creatinine Ratio 12/08/2024 024, 02/21/2023, 05/01/2022, Additional history exists TSH 03/15/2025 03/15/2024, 02/23, 12/08/2023, Additional history exists CKD HGB USE SMARTSET 57636 03/30/202503/30, 03/30/2024, 03/15/2024, Additional history exists DXA [...] this encounter Medical Devices Implanted Type Area Cycle Specialist Device Identifier Shelf Expiration Date Model / Serial / Lot Cath Thermodilution 6fr - [id number] Implanted:Qty: 1 on 01/24/2023 by Wilbur Rivera MD at [facility] [place] [employer] TERE [id number] 10/15/2024 [id number] / / [id number] Clip Delivery Sytem G4 Xt - [id number] Implanted:Qty: 1 on 03/10/2023 at [facility] [place] [employer] [id number] 04/15/2023 [id number] T / / [id number] Clip Delivery Sytem G4 Xtw - [id number] Implanted:Qty: 1 on 03/10/2023 at [facility] [employer] [id number] 12/06/2023 [id number] / / [id number] Mirtaclip G4 - [id number] Implanted:Qty: 1 on 03/10/2023 at [facility] [employer] 11/19/2023 [id number] / / [id number] Device Watchman Flx 31mm - [id number] Implanted:Qty: 1 on 07/31/2023 by Wilbur Rivera MD at [facility] [employer] : INTRV CARD [id number] 12/02/2025 [id number] / / [id number] documented as of this encounter Advance Directives Documents on File Type Date Recorded 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 No * No Code Date Activated [...] Healthcare Agent [facility] Communication [facility] Adult Child Health Care Dustyn t (per Health Care Power of Cnc Field Service Engineer document) Care Teams Development Team Lead Relationship Specialty Start Date End Date Florentin Calvo DO [address] [place] [address] PCP - General Internal Medicine 02/06/24 documented as of this encounter
[2024-05-14 06:40] LABS: Hematocrit (blood only) 30.2 % (37.0-47.0); Hemoglobin 10.4 g/dl (12.0-16.0); Mean Corpuscular Hemoglobin 30.2 pg (25.0-34.0); Mean Corpuscular Hgb Conc 34.4 g/dL (32.0-36.0); Mean Corpuscular Volume 87.8 fL (80.0-100.0); Mean Platelet Volume 11.6 fL (9.4-12.4); Platelet Count 204 K/uL (130-400); RDW Coefficient of Variation 16.3 % (11.5-14.5); RDW Standard Deviation 52.1 fL (36.4-46.3); Red Blood Count 3.44 M/uL (4.20-5.40); White Blood Count 10.32 K/ul (4.8-10.8)
[2024-05-14 06:58] LABS: Albumin Globulin Ratio 1.2 (0.9-2); BUN Creatinine Ratio 48.2 (10-20); Bilirubin,Total 0.8 mg/dl (0.2-1.0); C Reactive Protein 2.61 mg/dl (0-0.5); Calcium 8.9 mg/dl (8.6-10.3); Creatinine Clr Calc Pharmacy 21.8 ml/min; Est GFR (African American) 27.2 ml/min; Est GFR (Non-African American) 23.5 ml/min; Globulin 2.5 gm/dl (2.5-4.0); Magnesium 2.1 mg/dl (1.7-2.4); Phosphorus 4.5 mg/dl (2.5-4.9); Potassium 3.4 mmol/L (3.5-5.1); Total Protein 5.5 gm/dl (6.0-8.3)
--- OUTSIDE RECORDS SUMMARY | 2024-05-14 07:47 | External Medical Summary | Summary of Care ---
Author Name Unknown Organization [facility] Address [address] [place] [address] Phone [phone] Care Team Providers Care Health Club Manager Name Role Phone Grey Calvo DO Primary Care Provider Encounter Details Date Type Department Care Team (Late st Contact Info) Description 05/13/2024 Refill Family Practice 65 [facility] [address] [place] [address] Grey Calvo DO [address] [place] [address] Nausea and vomiting, unspecified vomiting type* Allergies Active Allergy Reactions Criticality Noted Date [...] as of this encounter (statuses as of 05/13/2024) Medications Medication Sig Dispensed Refills Start Date End Date Status Do It In PersonTouch Verio w/Device KitIndications:Type 2 diabetes mellitus with [...] DIRECTED 100 Tablet 3 03/31/2023 Active Ipratropium S[place] 0.03 % Nasal Solution (Atrovent)Indication s:Chronic rhinitis Administer 2 Sprays into nostril in the morning and 2 Sprays before bedtime. 90 mL 3 04/01/2023 Active Allopurinol 300 MG Oral Tablet (Zyloprim) Take 1 Tablet by mouth at bedtime. 90 Tablet 3 05/16/2023 Active Tiotropium Sodus-Olodaterol 2.5-2.5 MCG/ACT Inhalation Aerosol Solution (Stiolto Respimat) [...] suspected opioid overdose. Seek immediate medical attention. [email or web address] 1 Each 3 03/16/2024 03/16/2025 Active Levothyroxine [...] for 7 days. 14 Capsule 05/05/2024 Active Ondansetron HCl 4 MG Oral TabletIndications:Na usea and vomiting, unspecified vomiting type Take 1 Tablet by mouth every 8 hours as needed for Nausea. 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 No-SHOSHONE-PAIUTE can hear w/ hearing aid 03/07/2023 Are [...] Telephone Encounter - Grey Calvo DO - 05/13/2024 12:05 PM EDTSigned Prescriptions: Disp Refills Ondansetron HCl 4 MG Oral Tablet 30 Tab*0 Sig: Take 1 Tablet bymouth every 8 hours as needed for Nausea.Authorizing Provider: GREY CALVO * Telephone Encounter - Grey Calvo DO - 05/13/2024 11:59 AM EDT Check CMP, CBC with diff , and Lipase See if patient has Zofran at home. * Telephone Encounter - Hilda Awad LPN - 05/13/2024 11:44 AM EDT Son, Bright called in stating Inga doesn't feel well. Has nausea and vomiting for a couple of days. Can not pin point a problem. Schedule tomorrow acute visit for nausea at 0900. Dr Calvo, any labs today? documented in this encounter Plan of Treatment Upcoming Encounters Date Type Department Care Team (Late st Contact Info) Description 05/14/2024 9:00 AM EDT Office Visit Family [address] 293 [facility] [place] [address] Grey Calvo, 293 [place] [address] 05/18/2024 1:20 PM EDT Office Visit Neurology [facility] 200 [facility] [place] [address] Carmenza Colon PA-C 200 [facility] [place] [address] 06/02/2024 9:30 AM EDT Office Visit [facility], [facility] [address] Abigail Goncalves PANiharika 132 [place] [address] 06/02/2024 3:20 PM EDT Office Visit Family [address] 293 [facility] [place] [address] Grey Calvo, 293 [place] [address] 06/03/2024 2:15 PM EDT Office Visit Ophthalmology, [facility] 132 [facility] [address] Wilbur Benavides DO [address] [place] [address] 06/09/2024 8:50 AM EDT Office Visit Vascular Surgery, [facility] 132 [facility] [place] [address] Aj Sahni MD [address] [place] [address] 06/24/2024 2:30 PM EDT Home Visit [facility], [facility] 132 [facility] [place] [address] Nikolay Wu RN 132 [facility] [place] [address] 07/01/2024 2:30 PM EST Office Visit Gastroenterology, [facility] 132 [facility] [place] [address] Lacy Ronquillo CRNP 132 [facility] [address] 07/09/2024 1:00 PM EST Office Visit Nephrology, [facility] 200 [place] [address] ZeMichelle chiu PA-C 200 [place] [address] 07/27/2024 1:00 PM EST Office Visit Family Practice 65 [facility] 293 [facility] [place] [address] Grey Calvo, 293 [facility], [place] [address] 08/09/2024 1:00 PM EST Nurse Only Ancillary 65 [facility] 293 [facility], [place] [address] College, Nurse Annual Wellness Visit [address], [place] [address] 11/01/2024 12:00 PM EDT Office Visit Hematology/Oncology Jerri Zamora [place] 200 [facility] [place], [place] [address] Nereyda Metz CRNP [address] [place] [id number] Scheduled Orders Name Type Priority Associated Diagnoses Orde r Schedule COMPREHENSIVE METABOLIC PANEL Lab STAT Nausea and vomiting, unspecified vomiting type Expected: 05/13/2024 (Approximate), Expires: 05/13/2025 CBC WITH WBC DIFFERENTIAL Lab STAT Nausea and vomiting, unspecified vomiting type Expected: 05/13/2024 (Approximate), Expires: 05/13/2025 LIPASE Lab Routine Nausea and vomiting, unspecified vomiting type Expected: 05/13/2024 (Approximate), Expires: 05/13/2025 Scheduled Procedures Name Priority Associated Diagnoses Date/Ti [...] Additional history exists CKD PHOS USE SMARTSET 74720 04/27/2025 09/0 10/2023, 08/19/2023, 05/01/2022, Additional history exists TSH 04/27/2025 04/27/2024, 02/23, 03/15/2024, Additional history exists CKD HGB USE SMARTSET 49495 05/01/202505/01, 05/01/2024, 04/27/2024, Additional history exists DXA [...] this encounter Medical Devices Implanted Type Area Credentialer Device Identifier Shelf Expiration Date Model / Serial / Lot Cath Thermodilution 6fr - [id number] Implanted:Qty: 1 on 01/24/2023 by Wilbur Rivera MD at [facility] [place] [employer] TERE [id number] 10/15/2024 [id number] / / [id number] Clip Delivery Sytem G4 Xt - [id number] Implanted:Qty: 1 on 03/10/2023 at [facility] [employer] [id number] 04/15/2023 [id number] / / [id number] Clip Delivery Sytem G4 Xtw - [id number] Implanted:Qty: 1 on 03/10/2023 at [facility] [employer] [id number] 12/06/2023 [id number] TW / / [id number] Mirtaclip G4 - [id number] Implanted:Qty: 1 on 03/10/2023 at [facility] [employer] 11/19/2023 [id number] / / [id number] Device Watchman Flx 31mm - [id number] Implanted:Qty: 1 on 07/31/2023 by Wilbur Rivera MD at [facility] Tutor : INTRV CARD [id number] 12/02/2025 [id number] / / [id number] documented as of this encounter Visit Diagnoses Diagnosis Nausea and vomiting, unspecified vomiting type- Primary documented in this encounter Advance Directives Documents on File Type Date Recorded 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 No * No Code Date [...] Relationship Healthcare Agent Relationshi p Communication Bright [facility] Adult Child Health Care Agen t (per Health Care Power of Forming Machine Operator document) Care Teams Health Club Manager Relationship Specialty Start Date End Date Gery Calvo DO [address] [place] [address] PCP - General Internal Medicine 02/06/24 documented as of this encounter
--- OUTSIDE RECORDS SUMMARY | 2024-05-14 07:47 | External Medical Summary | Summary of Care ---
Author Name Unknown Organization [facility] Address [address] [place] [address] Phone [phone] Care Team Providers Care Virtualization Engineer Name Role Phone Florentin Calvo DO Primary Care Provider [phone] Reason for Visit * Reason Onset Date Comments Test Results 05/13/2024 Encounter Details Date Type Department Care Team (Late st Contact Info) Description 05/13/2024 Telephone Family Practice 65 [facility] [address] [place] [address] Florentin Calvo DO [address] [place] [address] Test Results (/) Allergies Active Allergy Reactions Criticality Noted [...] Dispensed Refills Start Date End Date Status Shippter w/Device KitIndications:Type 2 diabetes mellitus with hemoglobin [...] DIRECTED 100 Tablet 3 03/31/2023 Active Ipratropium [place] 0.03 % Nasal Solution (Atrovent)Indication s:Chronic rhinitis Administer 2 Sprays into nostril in the morning and 2 Sprays before bedtime. 90 mL 3 04/01/2023 Active Allopurinol 300 MG Oral Tablet (Zyloprim) Take 1 Tablet by mouth at bedtime. 90 Tablet 3 05/16/2023 Active Tiotropium [place]-Olodaterol 2.5-2.5 MCG/ACT Inhalation Aerosol Solution (Stiolto Respimat) [...] of T12 vertebra, initial encounter ([facility]) Administer 1 spray into 1 nostril for suspected opioid overdose. Seek immediate medical attention. 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 TIFFANY present. Lfts abnormal. Needs to go to ED now. * Telephone Encounter - Hilda Awad LPN - 05/13/2024 3:24 PM EDT Spoke to son, made aware documented in this encounter Plan of Treatment Upcoming Encounters Date Type Department Care Team (Late st Contact Info) Description 05/14/2024 9:00 AM EDT Office Visit Family Practice 65 [facility] 293 [facility] [place] [address] Florentin Calvo, DO 293 [facility] [place] [address] 05/18/2024 1:20 PM EDT Office Visit Neurology [facility] 200 [facility] [place] [address] Carmenza Colon PA-C 200 [facility] [address] 06/02/2024 9:30 AM EDT Office Visit Cardiology, [facility] 132 [facility] [address] Abigail Goncalves PA-C [facility] [place] [address] 06/02/2024 3:20 PM EDT Office Visit Family Practice [address] [place] [address] 293 [facility] [place] [address] Florentin Calvo, DO [address] [place] [address] 06/03/2024 2:15 PM EDT Office Visit Ophthalmology, [facility] 132 [facility] [place] [address] Wilbur Benavides, DO 21 [place] [address] 06/09/2024 8:50 AM EDT Office Visit Vascular Surgery, [facility] 132 [facility] [place] [address] Aj Sahni MD [address] [facility] [place] [address] 06/24/2024 2:30 PM EDT [facility], [facility] 132 [facility] [place] [address] Nikolay Wu, AISHA 132 [facility] [place] [address] 07/01/2024 2:30 PM EST Office Visit Gastroenterology, [facility] 132 [facility] [place] [address] Lacy Ronquillo CRNP 132 [facility] [place] [address] 07/09/2024 1:00 PM EST Office Visit Nephrology, [facility] 200 [facility] [place] [address] Michelle Ivy PA-C 200 [facility] [place] [address] 07/27/2024 1:00 PM EST Office Visit Family Practice 65 [facility] 293 [facility] [place] [address] Florentin Calvo, 293 [facility] [address] 08/09/2024 1:00 PM EST Nurse Only Ancillary [address] [place] [address] College, Nurse Annual Wellness Visit [address] [place] [address] 11/01/2024 12:00 PM EDT Office Visit Hematology/Oncology [facility] 200 [facility] [place], [place] [address] Nereyda Metz CRNP [address] [place] [address] [place] [address] Scheduled Procedures Name Priority Associated Diagnoses Date/Ti [...] Additional history exists Depression Monitoring 09/29/2024 09/29/2023 HbA1c 10/25/2024 04/27/2024, 11/23, 2023, Additional history exists GFR 11/10/2024 05/13/2024, 090 10/2023, 03/30/2024, Additional history exists Albumin/Creatinine Ratio 12/08/2024 024, 02/21/2023, 05/01/2022, Additional history exists CKD PHOS USE SMARTSET 39370 04/27/2025 09/0 10/2023, 08/19/2023, 05/01/2022, Additional history exists TSH 04/27/2025 04/27/2024, 02/23, 03/15/2024, Additional history exists DXA Scan 05/07/2025 05/07/2021, 12/24, 04/12/2013, Additional history exists CKD HGB USE SMARTSET 82364 05/13/202505/13, 05/13/2024, 05/01/2024, Additional history exists Colonoscopy 03/11/2026 03/11/2022, 02/22, [...] this encounter Medical Devices Implanted Type Area Bead Wire Insulator Device Identifier Shelf Expiration Date Model / Serial / Lot Cath Thermodilution 6fr - [id number] Implanted:Qty: 1 on 01/24/2023 by Wilbur Rivera MD [facility] [place] [employer] TERE [id number] 10/15/2024 [id number] / / [id number] Clip Delivery Sytem G4 Xt - [id number] Implanted:Qty: 1 on 03/10/2023 at [facility] [employer] [id number] 04/15/2023 [id number] / / [id number] Clip Delivery Sytem G4 Xtw - [id number] Implanted:Qty: 1 on 03/10/2023 at [facility] [employer] [id number] 12/06/2023 [id number] / / [id number] Mirtaclip G4 - [id number] Implanted:Qty: 1 on 03/10/2023 at [facility] [employer] 11/19/2023 [id number] / / [id number] Device Watchman Flx 31mm - [id number] Implanted:Qty: 1 on 07/31/2023 by Wilbur Rivera MD at [facility] [employer] : INTRV CARD [id number] 12/02/2025 [id number] documented as of this encounter Advance Directives Documents on File Type Date 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 No * No Code Date Activated Date [...] Name Relationship Healthcare Agent [facility] Communication Bright [place] Adult Child Health Care Frieda t (per Health Care Power of Psychiatric Nurse document) Care Teams Virtualization Engineer Relationship Specialty Start Date End Date Florentin Calvo DO [address] [place] [address] PCP - General Internal Medicine 02/06/24 documented as of this encounter
--- OUTSIDE RECORDS SUMMARY | 2024-05-14 07:47 | External Medical Summary | Summary of Care ---
Author Name Unknown Organization [facility] Address [address] [place] [address] Phone [phone] Care Team Providers Care Erector Operator Name Role Phone Florentin Calvo DO Primary Care Provider [phone] Reason for Visit * Reason Comments Outpatient Testing Encounter Details Date Type Department Care Team (Late st Contact Info) Description 05/13/2024 1:00 PM EDT Laboratory Laboratory, [facility] [address] [facility] [place] [phone] [facility] [address] [place] [address] Nausea and vomiting, unspecified vomiting type Allergies Active Allergy Reactions Criticality Noted [...] Dispensed Refills Start Date End Date Status [facility] w/Device KitIndications:Type 2 diabetes mellitus with hemoglobin [...] Wheezing. 15 g 12 06/13/2022 Active OneTouch VerEqvilibria In Vitro Strip (Glucose Blood) Test blood sugars up to 2 times a day E11.9 200 Strip 3 12/20/2022 Active Atorvastatin Calcium 20 MG Oral Tablet (Lipitor)Indications :PVD (peripheral vascular disease) ([facility]),Type 2 diabetes mellitus with stage 3a chronic kidney disease and hypertension ([facility]) TAKE ONE TABLET BY MOUTH EVERY DAY DIRECTED 100 Tablet 3 03/31/2023 Active Ipratropium [place] 0.03 % Nasal Solution (Atrovent)Indication s:Chronic rhinitis Administer 2 Sprays into nostril in the morning and 2 Sprays before bedtime. 90 mL 3 04/01/2023 Active Allopurinol 300 MG Oral Tablet (Zyloprim) Take 1 Tablet by mouth at bedtime. 90 Tablet 3 05/16/2023 Active Tiotropium [place]-Olodaterol 2.5-2.5 MCG/ACT Inhalation Aerosol Solution (Stiolto Respimat) [...] Hour (toPROL XL)Indications:Parox ysmal atrial fibrillation ([facility]) Take 1 Tablet by [...] :Chronic diastolic CHF (congestive heart failure) ([facility]) Take 2 Tablets by mouth in the morning. 200 Tablet 3 02/24/2024 Active Naloxone HCl 4 MG/0.1ML NA LIQD FOR CAREGIVERIndications :Compression fracture of T12 vertebra, initial encounter ([facility]) Administer 1 spray into 1 nostril for suspected opioid overdose. Seek immediate medical attention. 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 No-[place] can hear w/ hearing aid 03/07/2023 Are [...] 9:00 AM EDT Office Visit Family Practice [address] [place] [address] [address] [facility] [phone] Florentin Calvo, [address] [place] [address] 05/18/2024 1:20 PM EDT Office Visit Neurology [facility] [address] [place] [address] Carmenza Colon PA-C [address] [place] [address] 06/02/2024 9:30 AM EDT Office Visit Cardiology, [facility] [address] [place] [address] Abigail Goncalves PA-C 132 [facility] [place] [address] 06/02/2024 3:20 PM EDT Office Visit Family Practice [facility] [address] [facility], [place] [phone] Florentin Calvo, DO [address] [place] [address] 06/03/2024 2:15 PM EDT Office Visit Ophthalmology, [facility] 132 [facility] [place] [address] Wilbur Benavides, DO [address] [facility] [place] [address] 06/09/2024 8:50 AM EDT Office Visit Vascular Surgery, [facility] 132 [facility] [place] [address] Aj Sahni MD [address] [place] [address] 06/24/2024 2:30 PM EDT Home Visit [facility] [address] [facility] [place] [address] Nikolay Wu, RN [address] [facility] [place] [address] 07/01/2024 2:30 PM EST Office Visit Gastroenterology, [facility] 132 [facility] [place] [address] Lacy Ronquillo CRNP 132 [facility] [place] [address] 07/09/2024 1:00 PM EST Office Visit Nephrology, [facility] [address] [place] [address] Michelle Ivy PA-C [address] [place] [address] 07/27/2024 1:00 PM EST Office Visit Family Practice 65 [facility] [address] [facility] [place] [phone] Florentin Calvo DO [address] [place] [address] 08/09/2024 1:00 PM EST Nurse Only Ancillary 65 [facility] 293 [facility] [place] [place] [address] College, Nurse Annual Wellness Visit [address] [place] [address] 11/01/2024 12:00 PM EDT Office Visit Hematology/Oncology [facility] 200 [facility] [place] [phone] Nereyda Metz CRNP [address] [place] [address] Pending Results Name Type Priority Associated Diagnoses Date /Time COMPREHENSIVE METABOLIC PANEL Lab STAT Nausea and vomiting, unspecified vomiting type 05/13/2024 12:49 PM EDT LIPASE Lab Routine Nausea and vomiting, unspecified vomiting type 05/13/2024 12:49 PM EDT Scheduled Procedures Name Priority Associated [...] Additional history exists CKD PHOS USE SMARTSET 89351 04/27/2025 09/0 10/2023, 08/19/2023, 05/01/2022, Additional history exists TSH 04/27/2025 04/27/2024, 02/23, 03/15/2024, Additional history exists CKD HGB USE SMARTSET 94781 05/01/202505/13, 05/13/2024, 05/01/2024, Additional history exists DXA Scan 05/07/2025 05/07/2021, [...] this encounter Medical Devices Implanted Type Area Meter Tester Primary Device Identifier Shelf Expiration Date Model / Serial / Lot Cath Thermodilution 6fr - [id number] Implanted:Qty: 1 on 01/24/2023 by Wilbur Rivera MD at [facility] [employer] [id number] 10/15/2024 [id number] / / [id number] Clip Delivery Sytem G4 Xt - [id number] Implanted:Qty: 1 on 03/10/[address] [facility] [employer] [id number] 04/15/2023 [id number] / / [id number] Clip Delivery Sytem G4 Xtw - [id number] Implanted:Qty: 1 on 03/10/[address] [facility] [employer] [id number] 12/06/2023 [id number] / / [id number] Mirtac[employer] G4 - [id number] Implanted:Qty: 1 on 03/10/[address] [facility] [employer] 11/19/2023 [id number] / / [id number] Device Watchman Flx 31mm - [id number] Implanted:Qty: 1 on 07/31/2023 by Wilbur Rivera MD at [facility] [employer] : INTRV CARD [id number] 12/02/2025 [id number] documented as of this encounter Procedures Procedure Name Priority Date/Time Associated Diagnosis Comments DIFFERENTIAL, AUTOMATED STAT 05/13/2024 12:49 PM EDT Nausea and vomiting, unspecified vomiting type CBC STAT 05/13/2024 12:49 PM EDT Nausea and vomiting, unspecified vomiting type CBC STAT 05/13/2024 12:49 PM EDT Nausea and vomiting, unspecified vomiting type documented in this encounter Results * (ABNORMAL) DIFFERENTIAL, AUTOMATED (05/13/2024 12:49 PM EDT) WBC 12.98(H) 4.00 - 10.80 K/uL 05/13/2024 12:53 PM EDT [facility] Neutrophils % 77.8(H) 40.0 - 75.0 % 05/13/2024 12:53 PM EDT [facility] Lymphocytes % 12.7(L) 18.0 - 42.0 % 05/13/2024 12:53 PM EDT [facility] Monocytes % 7.3 1.0 - 11.0 % 05/13/2024 12:53 PM EDT [facility] Eosinophils % 2.0 0.0 - 6.0 % 05/13/2024 12:53 PM EDT [facility] Basophils % 0.2 0.0 - 2.0 % 05/13/2024 12:53 PM EDT [facility] Absolute Neutrophils 10.09(H) 1.80 - 7.70 K/uL 05/13/2024 12:53 PM EDT [facility] Absolute Lymphocytes 1.65 1.00 - 4.80 K/ul 05/13/2024 12:53 PM EDT [facility] Absolute Monocytes 0.95 0.00 - 1.10 K/uL 05/13/2024 12:53 PM EDT [facility] Absolute Eosinophils 0.26 0.00 - 0.70 K/uL 05/13/2024 12:53 PM EDT [facility] Absolute Basophils 0.03 0.00 - 0.20 K/uL 05/13/2024 12:53 PM EDT [facility] Blood Venous blood specimen / Unknown Venipuncture / Unknown 05/13/2024 12:49 PM EDT 05/13/2024 12:49 PM EDT Florentin Calvo DO LAB BLOOD ORDERABLES [facility] [address] [place] [address] * (ABNORMAL) CBC (05/13/2024 12:49 PM EDT) WBC 12.98(H) 4.00 - 10.80 K/uL 05/13/2024 12:53 PM EDT [facility] RBC 3.95 3.85 - 5.15 M/uL 05/13/2024 12:53 PM EDT [facility] HGB 12.0 12.0 - 15.3 g/dL 05/13/2024 12:53 PM EDT [facility] HCT 35.9(L) 36.0 - 45.2 % 05/13/2024 12:53 PM EDT [facility] MCV 90.9 81.5 - 97.5 fL 05/13/2024 12:53 PM EDT [facility] MCH 30.4 27.0 - 34.0 pg 05/13/2024 12:53 PM EDT [facility] MCHC 33.4 32.0 - 36.0 g/dL 05/13/2024 12:53 PM EDT [facility] RDW 16.3 11.5 - 15.5 % 05/13/2024 12:53 PM EDT [facility] PLT 241 140 - 400 K/uL 05/13/2024 12:53 PM EDT [facility] MPV 10.4 6.6 - 11.1 fL 05/13/2024 12:53 PM EDT [facility] Blood Venous blood specimen / Unknown Venipuncture / Unknown 05/13/2024 12:49 PM EDT 05/13/2024 12:49 PM EDT Florentin Calvo DO LAB BLOOD ORDERABLES [facility] [address] [place] [address] documented in this encounter Visit Diagnoses Diagnosis Nausea and vomiting, unspecified vomiting type documented in this encounter Advance Directives Documents on File Type Date Recorded 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 No * No Code Date Activated Date [...] Agent [facility] p Communication [facility] [place] Adult Child Health Care Agen t (per Health Care Power of Cable Wirer document) Care Teams Erector Operator Relationship Specialty Start Date End Date Florentin Calvo DO [address] [place] [address] PCP - General Internal Medicine 02/06/24 documented as of this encounter
--- OUTSIDE RECORDS SUMMARY | 2024-05-14 07:48 | External Medical Summary ---
Author Name Unknown Address Unknown Organization [id number]:[facility] - [address] [facility] [address] Laboratory Report Ordering Provider Test Date Status ANTONIO EDMONDS 05/13/2024 12:49:15 Final Observation Date Value Abnormality Reference (Units ) Status Lipase 05/13/2024 12:49:15 68 Above high normal 13 -60 (U/L) Final Performing Location [facility] - [address] [place] [address]
[2024-05-14] MEDS ORDERED: TORSEMIDE 20 MG TAB PO SCH (09:00)
[2024-05-14] MEDS: CHECK fentaNYL PATCH PLACEMENT SCH (09:59)
[2024-05-14] MEDS: fentaNYL 12 MCG/HR TDSY TD SCH (10:00)
[2024-05-14] MEDS: CHOLECALCIFEROL 25 MCG (1000 UNITS) TAB PO SCH (10:02)
[2024-05-14] MEDS: ATORVASTATIN 20 MG TAB PO SCH (10:02)
[2024-05-14] MEDS: SERTRALINE HCL 50 MG TABLET PO SCH (10:02)
[2024-05-14] MEDS: UMECLIDINIUM/VILANTEROL 62.5/25MCG 7 PUFFS/INHALER INH SCH (10:03)
[2024-05-14] MEDS: ASPIRIN 81 MG ECTAB PO SCH (10:03)
--- NOTE | 2024-05-14 12:12 | Electrocardiogram Report ---
Test Reason : Blood Pressure : */* mmHG Vent. Rate : 92 BPM Atrial Rate : 92 BPM P-R Int : 252 ms QRS Dur : 82 ms QT Int : 356 ms P-R-T Axes : 55 9 258 degrees QTcB Int : 440 ms Suspect slow atrial flutter vs atrial tachycardia with 2:1 AV conduction T wave abnormality, consider inferior ischemia T wave abnormality, consider anterolateral ischemia Abnormal ECG When compared with ECG of 12-Apr-2024 19:47, Non-specific change in ST segment in Anterior leads T wave inversion more evident in Anterolateral leads Confirmed by Brian Leong ([id number]) on 05/14/2024 12:12:16 PM Referred By: Florentin Calvo Confirmed By: Brian Leong
[2024-05-14] MEDS: POTASSIUM CHLORIDE CRTAB 20 MEQ TABCR PO STA (12:58)
--- NOTE | 2024-05-14 12:58 | Hospitalist Progress Note ---
Date of Service May 14, 2024 Assessment & Plan (1) Generalized weakness: (2) TIFFANY (acute kidney injury): Plan 83y/o F with PMHx of DM type II, secondary hyperparathyroidism, diabetic retinopathy, CKD stage III, hypothyroidism, polyneuropathy, PVD, HLD, RADHA, moderate persistent asthma, nocturnal hypoxemia, COPD, paroxysmal atrial fibrillation s/p Watchman procedure, sick sinus syndrome s/p pacemaker placement, pulmonary hypertension, chronic diastolic CHF, left carotid artery aneurysm, aortic atherosclerosis, severe tricuspid regurgitation, s/p mitral valve clip for severe mitral regurgitation, GERD, sigmoid diverticulosis, Mnire's disease, anemia, history of TIA, history of endometrial cancer, depression and other problems listed below who presented to the ED for evaluation of generalized weakness. she is being managed for the following: Generalized Weakness, Nausea/Vomiting: Infection due to COVID-19 virus: At admission:Leukocytosis noted. No fever. COVID-positive, CXR negative. Lactate negative. procalcitonin minimally elevated. CTAP negative for infection.UA negative. Received a liter of IV fluid in the ED. Hold off on additional IVF due to history of CHF. Isolation precautions. PT/OT. PRN IV Zofran. Advance diet as tolerated. TIFFANY on CKD Stage III: Cr 2.29 on admission. Baseline Cr ~1.7-1.8 per chart review. Status post 1 L fluid at presentation, hold further fluid due to CHF history. Hold torsemide, nephrology consult, await recommendation. Avoid nephrotoxic's. Labs in AM. Mild Transaminitis: AST 64 and Alk Phos 260 on admission. Appears patient's LFTs are elevated at baseline. Urine Elevated Troponin:Troponin slightly bumped at 14.1; troponin x 3 negative. Likely chronic elevation.EKG without any overt ischemic changes. No chest pain. Chronic Diastolic CHF, Severe Tricuspid Regurgitation: Mild BLE edema on exam. Monitor closely for volume overload. CXR negative for any edema/effusions. Will continue torsemide for now given IVF hydration. RADHA, Nocturnal Hypoxia: Continue baseline 2L O2 HS. Paroxysmal AFib S/P Watchman Procedure: Continue metoprolol succinate and aspirin therapy. Continuous cardiac monitoring in place, metoprolol with hold parameters. Asthma/COPD: Can continue home medications. DM Type II: Diet-controlled. A1c was 6.9% on 03/24/24. Hold off on SSI for now. BSG checks ACHS. Monitor BSG. Other Chronic Medical Conditions: Hypothyroidism, HLD, gout, GERD and depression --> Can continue home medications for these specific conditions. DVT Prophylaxis: SQ Heparin Code Status: FULL CODE PCP: Florentin Calvo, Disposition: PT/OT, CM to assist with DC planning. Admission and Anticipated Discharge Date Admission Date: May 13, 2024 Subjective Patient was seen and examined at bedside. Patient was lying in bed, on room air, NAD, resting comfortably. Patient reports eating better, reported that she was not eating for about 3 days JACKERMAN. Reports getting stronger. Patient reports having chronic diarrhea, no loose stools today. Patient denies cough/shortness of breath/chest pain. Physical Exam Physical Exam: General: WD/WN, vitals as above, NAD, laying down in bed, pleasant, conversing appropriately. A+Ox3, euthymic affect. HEENT: Normocephalic, atraumatic. PERRL, conjunctivae normal, anicteric sclerae, oropharynx slightly Moist. Respiratory: Normal respiratory effort, lungs clear to auscultation, no wheeze, rales, rhonchi. No accessory muscle use. Cardiovascular: Regular rate, rhythm, no murmur, normal peripheral pulses, trace BLE edema. Vessels: No JVD. Abdomen/GI: Normal bowel sounds, soft, nontender, no hepatosplenomegaly. Extremities/Musculoskeletal: No cyanosis or clubbing, extremities motor strength intact, moves all extremities. Neurologic: EOMI, accommodation nl, no face palsy, no dysarthria, CN's II-XI not formally tested but appear grossly intact bilaterally. Skin: No rashes, normal color, warm/dry. Right great toe with mild medial erythema, no discharge and not tender to palpation. Results & Data Results & Data Vital Signs (Past 12 Hours) Vital Signs Temp Pulse Pulse Resp BP BP Pulse Ox 05/14/24 11:31 36.4 C L 89 18 97/60 L 95 05/14/24 11:06 05/14/24 08:19 36.3 C L 98 H 18 104/57 L 94 05/14/24 08:07 95 H 05/14/24 05:17 93 H 05/14/24 03:28 36.5 C 16 112/67 96 05/14/24 02:49 84 20 98/60 L 96 05/14/24 02:30 107/48 L 05/14/24 02:30 107/48 L 05/14/24 02:30 85 14 107/48 L 100 05/14/24 02:00 90 23 92/53 L 100 05/14/24 02:00 93 H 15 92/53 L 100 05/14/24 01:30 85 17 97/50 L 97 05/14/24 01:00 88 14 95/51 L 97 O2 Del Method 05/14/24 11:31 Room Air 05/14/24 11:06 Room Air 05/14/24 08:19 Room Air 05/14/24 08:07 05/14/24 05:17 05/14/24 03:28 Room Air 05/14/24 02:49 Room Air 05/14/24 02:30 05/14/24 02:30 05/14/24 02:30 05/14/24 02:00 05/14/24 02:00 05/14/24 01:30 05/14/24 01:00
--- NOTE | 2024-05-14 13:18 | Nephrology Consultation ---
Date of Consultation May 14, 2024 Assessment & Plan (1) TIFFANY (acute kidney injury): acute kidney injury with some rise in creatinine compared to her baseline. Creatinine was 2.3 yesterday and since then has come down to 1.9. her baseline kidney function for the last few months is somewhat fluctuating but anywhere from creatinine of 1.6-1.9 would be regarded as baseline. her renal function is pretty much back to baseline at this point and we do not need to do further workup for the etiology of acute kidney injury. most likely related with some degree of volume depletion /hemodynamic changes related with COVID infection. at this point she is eating and drinking normally and does not need anymore fluid. daily renal panel while she is in the hospital to monitor the renal function. she is still has significant weakness and primary team will decide about the transition from the hospital. no longer has nausea vomiting and is able to eat and drink. she is normally on torsemide 20 mg daily which will be held at least for now. She does have history of diastolic congestive heart failure and eventually will need to be back on the diuretics. no NSAIDs no nephrotoxic agents contrast agents. Avoid significant hemodynamic changes (2) Chronic renal failure (CRF), stage 3b: she does have CKD stage IIIB to sometime stage IV without proteinuria and is already followed by Dr. Rios in [facility]. phosphorus is at goal. Hemoglobin although low is still at goal of 10+. (3) Acute bronchitis due to COVID-19 virus: as per primary team. Plan Total time spent 48 minutes History of Present Illness Reason for Consultation: acute kidney injury on background CKD 3B Attending Physician: Deepa Herrera MD History of Present Illness 83-year-old female with known non proteinuric CKD 3B to CKD [address] Rosario Rios in [facility]. Her baseline creatinine for the last few months has been anywhere from 1.5-2.2. she was admitted yesterday after she presented to the emergency department with weakness nausea vomiting and shortness of breath. she also had outpatient labs through her PCP's office which was noted to be abnormal with elevated white count worsening kidney function and abnormal LFT and was instructed to go to the hospital for further management. patient has a complicated medical history which includes DM type II, secondary hyperparathyroidism, diabetic retinopathy, CKD stage III, hypothyroidism, polyneuropathy, PVD, HLD, RADHA, moderate persistent asthma, nocturnal hypoxemia, COPD, paroxysmal atrial fibrillation s/p Watchman procedure, sick sinus syndrome s/p pacemaker placement, pulmonary hypertension, chronic diastolic CHF, left carotid artery aneurysm, aortic atherosclerosis, severe tricuspid regurgitation, s/p mitral valve clip for severe mitral regurgitation, GERD, sigmoid diverticulosis, Mnire's disease, anemia, history of TIA, history of endometrial cancer, depression. since being admitted she has had CT abdomen and pelvis which was unremarkable as well as chest x-ray which was unremarkable. renal function was slightly worse than baseline but has since improved and is now back to baseline. she did receive some IV fluid. she is in COVID isolation as she did have COVID infection recently. Review of systems as detailed in HPI unless stated otherwise 12 systems reviewed and negative. physical examination elderly white female who is not in overt respiratory distress she is awake alert oriented x3 and was able to tell her medical history. her son was present by speaker phone increase membrane is moist neck is supple no JVD chest bilateral clear to auscultation CVS S1-S2 regular abdomen is soft nontender obese extremities shows trace edema Allergies Allergy/AdvReac Type Severity Reaction Status Date / Time Sulfa (Sulfonamide Allergy Severe Severe Verified 04/13/24 00:16 Antibiotics) rxn: rash and hives celecoxib Allergy Intermediate Rash/Hives/ Verified 04/13/24 00:16 Itching. cephalexin Allergy Intermediate Rash/Hives/ Verified 04/13/24 00:16 Itching. furosemide Allergy Intermediate Rash/Hives/ Verified 04/13/24 00:16 Itching. gabapentin Allergy Intermediate Rash/Hives/ Verified 04/13/24 00:16 Itching. pregabalin Allergy Intermediate Rash/Hives/ Verified 04/13/24 00:16 Itching. meclizine Allergy Unknown Unknown Verified 04/13/24 00:16 methylprednisolone Allergy Unknown Rash/Hives/ Verified 04/13/24 00:16 Itching. Penicillins Allergy Unknown Unknown. Verified 04/13/24 00:16 prednisone Allergy Unknown Rash/Hives/ Verified 04/13/24 00:16 Itching. vancomycin Allergy Unknown Jodi Verified 04/13/24 00:16 syn. . nickel Allergy Unknown Verified 04/13/24 00:16 dexamethasone AdvReac Intermediate Steroid Verified 04/13/24 00:16 psychosis. Home Medications Medication Instructions Recorded Confirmed Type montelukast 10 mg tablet 10 mg PO PM 04/08/19 05/13/24 History atorvastatin 20 mg tablet 20 mg PO QAM 11/26/21 05/13/24 History cholecalciferol (vitamin D3) 50 100 mcg PO QAM 11/26/21 05/13/24 History mcg (2,000 unit) capsule (Vitamin D3) levalbuterol tartrate 45 1 puff inhalation Q4H PRN 08/07/22 05/13/24 History mcg/actuation aerosol inhaler Shortness Of Breath (Xopenex HFA) sertraline 100 mg tablet 150 mg PO QAM 08/07/22 05/13/24 History tiotropium 2.5 mcg-olodaterol 2.5 2 puff inhalation QAM 11/07/22 05/13/24 History mcg/actuation mist for inhalation (Stiolto Respimat) torsemide 10 mg tablet 20 mg PO QAM 11/07/22 05/13/24 History ipratropium bromide 21 mcg (0.03 2 spray intranasal DAILY PRN 12/06/22 05/13/24 History %) nasal spray rhinorrhea pantoprazole 40 mg tablet,delayed 40 mg PO BID #60 tabs 12/09/22 05/13/24 Rx release allopurinol 300 mg tablet 300 mg PO HS 08/14/23 05/13/24 History metoprolol succinate 25 mg 25 mg PO BID #60 tabs 10/22/23 05/13/24 Rx tablet,extended release 24 hr diphenoxylate-atropine 2.5 1 tab PO BID PRN Diarrhea 03/07/24 05/13/24 History mg-0.025 mg tablet levothyroxine 175 mcg tablet 175 mcg PO DAILYBB 03/21/24 05/13/24 History fentanyl 12 mcg/hr transdermal 12 mcg transdermal Q3D 03/23/24 05/13/24 History patch aspirin 81 mg tablet,delayed 81 mg PO QAM #30 tabs 03/25/24 05/13/24 Rx release oxycodone 5 mg tablet 5 mg PO QID PRN pain severe #35 03/25/24 05/13/24 Rx tabs acetaminophen 500 mg tablet 1,000 mg PO Q6H PRN Pain 04/13/24 05/13/24 History (Tylenol Extra Strength) benzonatate 100 mg capsule 100 mg PO Q6H PRN cough #20 caps 04/15/24 05/13/24 Rx guaifenesin 600 mg tablet, 600 mg PO Q12 PRN cough #20 tabs 04/15/24 05/13/24 Rx extended release 12 hr (Mucinex) buspirone 5 mg tablet 5 mg PO AMHS 05/13/24 05/13/24 History ondansetron HCl 4 mg tablet 4 mg PO UD PRN Nausea And Vomiting 05/13/24 05/13/24 History Patient History Medical History Generalized weakness Pericardial effusion Low back pain Angio-edema Nausea Leukocytosis Near syncope Hypotension Dehydration TIFFANY (acute kidney injury) Near syncope Elevated brain natriuretic peptide (BNP) level Pneumonia Atrial flutter Carotid artery aneurysm Prolonged QT interval Atrial fibrillation with RVR DM type 2 (diabetes mellitus, type 2) Encounter for pre-operative examination Cholelithiasis Cholecystitis Chest pain at rest Pulmonary emphysema Osteoarthritis of right knee HTN (hypertension) Surgical History History of hysterectomy History of cholecystectomy Family History Father Diabetes Social History Smoking Status: Never smoker Tobacco Type: Cigarettes packs per day: 1.5; Cigarettes Per Day: 30; Second Hand Exposure: No; Do You Dip or Chew Tobacco: No; Tobacco Cessation Education Requested by Patient: No Hx Alcohol Use: No Hx Substance Use: No Preferred Language: Wolof Communication Ability: Effective Leaded Glass Installer Required: No Beliefs That Will Affect Care: None marital status: Current Living Situation: Spouse Other Information That Helps Us Care for You: No Feels Safe at Home: Yes Safety Concerns: Feels Safe At This Time Assistive Devices: Hearing Aid - Right and Wheelchair Results & Data Vital Signs (Past 12 Hours) Vital Signs Temp Pulse Pulse Resp BP BP Pulse Ox 05/14/24 11:31 36.4 C L 89 18 97/60 L 95 05/14/24 11:06 05/14/24 08:19 36.3 C L 98 H 18 104/57 L 94 05/14/24 08:07 95 H 05/14/24 05:17 93 H 05/14/24 03:28 36.5 C 16 112/67 96 05/14/24 02:49 84 20 98/60 L 96 05/14/24 02:30 107/48 L 05/14/24 02:30 107/48 L 05/14/24 02:30 85 14 107/48 L 100 05/14/24 02:00 90 23 92/53 L 100 05/14/24 02:00 93 H 15 92/53 L 100 05/14/24 01:30 85 17 97/50 L 97 O2 Del Method 05/14/24 11:31 Room Air 05/14/24 11:06 Room Air 05/14/24 08:19 Room Air 05/14/24 08:07 05/14/24 05:17 05/14/24 03:28 Room Air 05/14/24 02:49 Room Air 05/14/24 02:30 05/14/24 02:30 05/14/24 02:30 05/14/24 02:00 05/14/24 02:00 05/14/24 01:30 Laboratory Results reviewed CBC renal panel from yesterday as well as today as well as comparison with her outpatient labs for the last few months Diagnostic Findings reviewed chest x-ray finding which does not show any evidence of congestive heart failure. CT abdomen and pelvis did not show any hydronephrosis
[2024-05-14] MEDS: MELATONIN 3 MG TAB PO PRN (22:31)
[2024-05-15 07:35] LABS: Hematocrit (blood only) 28.6 % (37.0-47.0); Mean Corpuscular Hemoglobin 30.6 pg (25.0-34.0); Mean Corpuscular Volume 87.5 fL (80.0-100.0); Mean Platelet Volume 10.8 fL (9.4-12.4); Platelet Count 171 K/uL (130-400); RDW Coefficient of Variation 16.4 % (11.5-14.5); RDW Standard Deviation 52.3 fL (36.4-46.3); Red Blood Count 3.27 M/uL (4.20-5.40); White Blood Count 10.25 K/ul (4.8-10.8)
[2024-05-15 07:52] LABS: BUN Creatinine Ratio 48.9 (10-20); Calcium 8.7 mg/dl (8.6-10.3); Creatinine Clr Calc Pharmacy 22.9 ml/min; Est GFR (African American) 28.9 ml/min; Est GFR (Non-African American) 24.9 ml/min; Magnesium 2.2 mg/dl (1.7-2.4); Phosphorus 3.9 mg/dl (2.5-4.9); Potassium 3.8 mmol/L (3.5-5.1)
[2024-05-15] MEDS: SODIUM CHLORIDE 0.9% 1,000 ML IV SCH (12:32)
[2024-05-15] MEDS: diphenhydrAMINE HCL 25 MG/10 ML UDC PO PRN (16:48)
[2024-05-15] MEDS ORDERED: CALCIUM CARBONATE 500 MG CHEWABLE TAB PO PRN (16:51)
--- NOTE | 2024-05-15 16:53 | Hospitalist Progress Note ---
Date of Service May 15, 2024 Assessment & Plan (1) Generalized weakness: (2) TIFFANY (acute kidney injury): Plan 83y/o F with PMHx of DM type II, secondary hyperparathyroidism, diabetic retinopathy, CKD stage III, hypothyroidism, polyneuropathy, PVD, HLD, RADHA, moderate persistent asthma, nocturnal hypoxemia, COPD, paroxysmal atrial fibrillation s/p Watchman procedure, sick sinus syndrome s/p pacemaker placement, pulmonary hypertension, chronic diastolic CHF, left carotid artery aneurysm, aortic atherosclerosis, severe tricuspid regurgitation, s/p mitral valve clip for severe mitral regurgitation, GERD, sigmoid diverticulosis, Mnire's disease, anemia, history of TIA, history of endometrial cancer, depression and other problems listed below who presented to the ED for evaluation of generalized weakness. she is being managed for the following: Generalized Weakness, Nausea/Vomiting: Infection due to COVID-19 virus: At admission:Leukocytosis noted. No fever. COVID-positive, CXR negative. Lactate negative. procalcitonin minimally elevated. CTAP negative for infection.UA negative. Received a liter of IV fluid in the ED. Isolation precautions. PT/OT. PRN IV Zofran. Advance diet as tolerated. TIFFANY on CKD Stage III: Cr 2.29 on admission. Baseline Cr ~1.7-1.8 per chart review. Status post 1 L fluid at presentation, hold further fluid due to CHF history. Hold torsemide, nephrology evaled. Avoid nephrotoxic's. Labs in AM. BP soft today, hence given additional ivf, will hold torsemide today. Mild Transaminitis: AST 64 and Alk Phos 260 on admission. Appears patient's LFTs are elevated at baseline. Urine Elevated Troponin:Troponin slightly bumped at 14.1; troponin x 3 negative. Likely chronic elevation.EKG without any overt ischemic changes. No chest pain. Chronic Diastolic CHF, Severe Tricuspid Regurgitation: Mild BLE edema on exam. Monitor closely for volume overload. CXR negative for any edema/effusions. Holding torsemide as above. RADHA, Nocturnal Hypoxia: Continue baseline 2L O2 HS. Paroxysmal AFib S/P Watchman Procedure: Continue metoprolol succinate and aspirin therapy. Continuous cardiac monitoring in place, metoprolol with hold parameters. Asthma/COPD: Can continue home medications. DM Type II: Diet-controlled. A1c was 6.9% on 03/24/24. Hold off on SSI for now. BSG checks ACHS. Monitor BSG. Other Chronic Medical Conditions: Hypothyroidism, HLD, gout, GERD and depression --> Can continue home medications for these specific conditions. DVT Prophylaxis: SQ Heparin Code Status: FULL CODE PCP: Florentin Calvo, DO Disposition: PT/OT, CM to assist with DC planning. Admission and Anticipated Discharge Date Admission Date: May 13, 2024 Subjective Patient was seen and examined at bedside. Patient was lying in bed, on room air, NAD, resting comfortably. Patient reports eating better, reports feeling better. Patient reports having chronic diarrhea, no loose stools today and yesterday per her. Patient denies cough/shortness of breath/chest pain. Physical Exam Physical Exam: General: WD/WN, vitals as above, NAD, laying down in bed, pleasant, conversing appropriately. A+Ox3, euthymic affect. HEENT: Normocephalic, atraumatic. PERRL, conjunctivae normal, anicteric sclerae, oropharynx slightly Moist. Respiratory: Normal respiratory effort, lungs clear to auscultation, no wheeze, rales, rhonchi. No accessory muscle use. Cardiovascular: Regular rate, rhythm, no murmur, normal peripheral pulses, trace BLE edema. Vessels: No JVD. Abdomen/GI: Normal bowel sounds, soft, nontender, no hepatosplenomegaly. Extremities/Musculoskeletal: No cyanosis or clubbing, extremities motor strength intact, moves all extremities. Neurologic: EOMI, accommodation nl, no face palsy, no dysarthria, CN's II-XI not formally tested but appear grossly intact bilaterally. Skin: No rashes, normal color, warm/dry. Right great toe with mild medial erythema, no discharge and not tender to palpation. Results & Data Results & Data Vital Signs (Past 12 Hours) Vital Signs Temp Pulse Pulse Resp BP Pulse Ox O2 Del Method 05/15/24 16:37 36.3 C L 82 18 104/65 96 Room Air 05/15/24 15:14 88 05/15/24 14:06 83 18 102/65 97 Room Air 05/15/24 12:33 79 103/65 95 Room Air 05/15/24 11:26 36.3 C L 92 H 18 84/51 L 93 Room Air 05/15/24 11:02 Room Air 05/15/24 08:03 36.3 C L 92 H 16 93/56 L 95 Room Air 05/15/24 06:00 84
[2024-05-16 08:05] LABS: Hematocrit (blood only) 28.7 % (37.0-47.0); Hemoglobin 9.5 g/dl (12.0-16.0); Mean Corpuscular Hemoglobin 30.2 pg (25.0-34.0); Mean Corpuscular Hgb Conc 33.1 g/dL (32.0-36.0); Mean Corpuscular Volume 91.1 fL (80.0-100.0); Mean Platelet Volume 10.7 fL (9.4-12.4); Platelet Count 152 K/uL (130-400); RDW Coefficient of Variation 16.5 % (11.5-14.5); RDW Standard Deviation 54.1 fL (36.4-46.3); Red Blood Count 3.15 M/uL (4.20-5.40); White Blood Count 9.94 K/ul (4.8-10.8)
[2024-05-16 08:22] LABS: BUN Creatinine Ratio 48.4 (10-20); Calcium 8.4 mg/dl (8.6-10.3); Creatinine Clr Calc Pharmacy 27.5 ml/min; Est GFR (African American) 36.1 ml/min; Est GFR (Non-African American) 31.1 ml/min; Magnesium 2.2 mg/dl (1.7-2.4); Phosphorus 3.3 mg/dl (2.5-4.9); Potassium 3.8 mmol/L (3.5-5.1)
--- NOTE | 2024-05-16 14:33 | Hospitalist Progress Note ---
Date of Service May 16, 2024 Assessment & Plan (1) Generalized weakness: (2) TIFFANY (acute kidney injury): Plan 83y/o F with PMHx of DM type II, secondary hyperparathyroidism, diabetic retinopathy, CKD stage III, hypothyroidism, polyneuropathy, PVD, HLD, RADHA, moderate persistent asthma, nocturnal hypoxemia, COPD, paroxysmal atrial fibrillation s/p Watchman procedure, sick sinus syndrome s/p pacemaker placement, pulmonary hypertension, chronic diastolic CHF, left carotid artery aneurysm, aortic atherosclerosis, severe tricuspid regurgitation, s/p mitral valve clip for severe mitral regurgitation, GERD, sigmoid diverticulosis, Mnire's disease, anemia, history of TIA, history of endometrial cancer, depression and other problems listed below who presented to the ED for evaluation of generalized weakness. she is being managed for the following: Generalized Weakness, Nausea/Vomiting: Infection due to COVID-19 virus: At admission:Leukocytosis noted. No fever. COVID-positive, CXR negative. Lactate negative. procalcitonin minimally elevated. CTAP negative for infection.UA negative. Received a liter of IV fluid in the ED. Isolation precautions. PT/OT. PRN IV Zofran. Pt eating better and reports strength coming back. TIFFANY on CKD Stage III: Cr 2.29 on admission. Baseline Cr ~1.7-1.8 per chart review. s/p ivf, resolved. Resume torsemide from AM. Mild Transaminitis: AST 64 and Alk Phos 260 on admission. Appears patient's LFTs are elevated at baseline. Elevated Troponin:Troponin slightly bumped at 14.1; troponin x 3 negative. Likely chronic elevation. EKG without any overt ischemic changes. No chest pain. Chronic Diastolic CHF, Severe Tricuspid Regurgitation: Mild BLE edema on exam. Monitor closely for volume overload. CXR negative for any edema/effusions. torsemide as above. RADHA, Nocturnal Hypoxia: Continue baseline 2L O2 HS. Paroxysmal AFib S/P Watchman Procedure: Continue metoprolol succinate and aspirin therapy. Continuous cardiac monitoring in place, metoprolol with hold parameters. Asthma/COPD: Can continue home medications. DM Type II: Diet-controlled. A1c was 6.9% on 03/24/24. Hold off on SSI for now. BSG checks ACHS. Monitor BSG. Other Chronic Medical Conditions: Hypothyroidism, HLD, gout, GERD and depression --> Can continue home medications for these specific conditions. DVT Prophylaxis: SQ Heparin Code Status: FULL CODE PCP: Florentin Calvo DO Disposition: PT/OT, CM to assist with DC planning. Admission and Anticipated Discharge Date Admission Date: May 13, 2024 Subjective Patient was seen and examined at bedside. Patient was lying in bed, on room air, NAD, resting comfortably. Patient reports eating better, reports feeling better. Pt's dtr was updated over the phone at bedside, answered all her questions. Patient denies cough/shortness of breath/chest pain. Physical Exam Physical Exam: General: WD/WN, vitals as above, NAD, laying down in bed, pleasant, conversing appropriately. A+Ox3, euthymic affect. HEENT: Normocephalic, atraumatic. PERRL, conjunctivae normal, anicteric sclerae, oropharynx slightly Moist. Respiratory: Normal respiratory effort, lungs clear to auscultation, no wheeze, rales, rhonchi. No accessory muscle use. Cardiovascular: Regular rate, rhythm, no murmur, normal peripheral pulses, trace BLE edema. Vessels: No JVD. Abdomen/GI: Normal bowel sounds, soft, nontender, no hepatosplenomegaly. Extremities/Musculoskeletal: No cyanosis or clubbing, extremities motor strength intact, moves all extremities. Neurologic: EOMI, accommodation nl, no face palsy, no dysarthria, CN's II-XI not formally tested but appear grossly intact bilaterally. Skin: No rashes, normal color, warm/dry. Right great toe with mild medial erythema, no discharge and not tender to palpation. Results & Data Results & Data Vital Signs (Past 12 Hours) Vital Signs Temp Pulse Pulse Resp BP BP Pulse Ox 05/16/24 12:14 36.4 C L 81 20 109/65 96 05/16/24 09:01 36.7 C 80 18 104/61 96 05/16/24 08:00 88 O2 Del Method 05/16/24 12:14 Room Air 05/16/24 09:01 Room Air 05/16/24 08:00
[2024-05-16 20:11] VITALS: RESP 18
[2024-05-17 07:33] LABS: Hematocrit (blood only) 29.8 % (37.0-47.0); Hemoglobin 9.6 g/dl (12.0-16.0); Mean Corpuscular Hemoglobin 29.4 pg (25.0-34.0); Mean Corpuscular Hgb Conc 32.2 g/dL (32.0-36.0); Mean Corpuscular Volume 91.1 fL (80.0-100.0); Platelet Count 150 K/uL (130-400); RDW Coefficient of Variation 16.6 % (11.5-14.5); RDW Standard Deviation 55.4 fL (36.4-46.3); Red Blood Count 3.27 M/uL (4.20-5.40); White Blood Count 9.67 K/ul (4.8-10.8)
[2024-05-17 07:53] LABS: BUN Creatinine Ratio 51.7 (10-20); Calcium 8.5 mg/dl (8.6-10.3); Creatinine Clr Calc Pharmacy 35.1 ml/min; Est GFR (African American) 48.4 ml/min; Est GFR (Non-African American) 41.8 ml/min; Potassium 4.1 mmol/L (3.5-5.1)
[2024-05-17] MEDS: TORSEMIDE 20 MG TAB PO SCH (08:29)
--- NOTE | 2024-05-17 08:30 | Communication Note ---
Date of Service: May 17, 2024 Neph c/s 05/14 for transient TIFFANY Stage 1 prerenal Pt creat better than baseline off of her obligate diuretics; to resume torsemide today Neph will sign off NEPH D/C RECS -bmp at PCP hospital d/c appt >> if creatinine>2 or if other concerns PCP can contact neph for hospital d/c visit; else keep routinely scheduled neph follow up
--- NOTE | 2024-05-17 15:21 | Hospitalist Progress Note ---
Date of Service May 17, 2024 Assessment & Plan (1) Generalized weakness: (2) TIFFANY (acute kidney injury): Plan 83y/o F with PMHx of DM type II, secondary hyperparathyroidism, diabetic retinopathy, CKD stage III, hypothyroidism, polyneuropathy, PVD, HLD, RADHA, moderate persistent asthma, nocturnal hypoxemia, COPD, paroxysmal atrial fibrillation s/p Watchman procedure, sick sinus syndrome s/p pacemaker placement, pulmonary hypertension, chronic diastolic CHF, left carotid artery aneurysm, aortic atherosclerosis, severe tricuspid regurgitation, s/p mitral valve clip for severe mitral regurgitation, GERD, sigmoid diverticulosis, Mnire's disease, anemia, history of TIA, history of endometrial cancer, depression and other problems listed below who presented to the ED for evaluation of generalized weakness. she is being managed for the following: Generalized Weakness, Nausea/Vomiting: Infection due to COVID-19 virus: At admission:Leukocytosis noted. No fever. COVID-positive, CXR negative. Lactate negative. procalcitonin minimally elevated. CTAP negative for infection.UA negative. Received a liter of IV fluid in the ED. Isolation precautions. PT/OT. PRN IV Zofran. Pt eating better and reports strength coming back. TIFFANY on CKD Stage III: Cr 2.29 on admission. Baseline Cr ~1.7-1.8 per chart review. s/p ivf, resolved. Resume torsemide. Mild Transaminitis: AST 64 and Alk Phos 260 on admission. Appears patient's LFTs are elevated at baseline. Elevated Troponin:Troponin slightly bumped at 14.1; troponin x 3 negative. Likely chronic elevation. EKG without any overt ischemic changes. No chest pain. Chronic Diastolic CHF, Severe Tricuspid Regurgitation: Mild BLE edema on exam. Monitor closely for volume overload. CXR negative for any edema/effusions. torsemide as above. RADHA, Nocturnal Hypoxia: Continue baseline 2L O2 HS. Paroxysmal AFib S/P Watchman Procedure: Continue metoprolol succinate and aspirin therapy. Continuous cardiac monitoring in place, metoprolol with hold parameters. Asthma/COPD: Can continue home medications. DM Type II: Diet-controlled. A1c was 6.9% on 03/24/24. Hold off on SSI for now. BSG checks ACHS. Monitor BSG. Other Chronic Medical Conditions: Hypothyroidism, HLD, gout, GERD and depression --> Can continue home medications for these specific conditions. DVT Prophylaxis: SQ Heparin Code Status: FULL CODE PCP: Florentin Calvo, Disposition: PT/OT, CM to assist with DC planning. Family wants to look into rehab for the patient, case management working. Admission and Anticipated Discharge Date Admission Date: May 13, 2024 Subjective Patient was seen and examined at bedside. Patient was lying in bed, on room air, NAD, resting comfortably. Patient reports eating better, reports feeling better. Pt's son was updated over the phone at bedside, answered all his questions. Patient denies cough/shortness of breath/chest pain. Physical Exam Physical Exam: General: WD/WN, vitals as above, NAD, laying down in bed, pleasant, conversing appropriately. A+Ox3, euthymic affect. HEENT: Normocephalic, atraumatic. PERRL, conjunctivae normal, anicteric sclerae, oropharynx slightly Moist. Respiratory: Normal respiratory effort, lungs clear to auscultation, no wheeze, rales, rhonchi. No accessory muscle use. Cardiovascular: Regular rate, rhythm, no murmur, normal peripheral pulses, trace BLE edema. Vessels: No JVD. Abdomen/GI: Normal bowel sounds, soft, nontender, no hepatosplenomegaly. Extremities/Musculoskeletal: No cyanosis or clubbing, extremities motor strength intact, moves all extremities. Neurologic: EOMI, accommodation nl, no face palsy, no dysarthria, CN's II-XI not formally tested but appear grossly intact bilaterally. Skin: No rashes, normal color, warm/dry. Right great toe with mild medial erythema, no discharge and not tender to palpation. Results & Data Results & Data Vital Signs (Past 12 Hours) Vital Signs Temp Pulse Pulse Resp BP Pulse Ox O2 Del Method 05/17/24 15:04 84 05/17/24 11:51 36.3 C L 80 18 90/54 L 98 Room Air 05/17/24 11:41 80 05/17/24 04:00 36.7 C 79 18 102/61 95 Room Air
[2024-05-18 06:31] LABS: Hematocrit (blood only) 28.5 % (37.0-47.0); Hemoglobin 9.7 g/dl (12.0-16.0); Mean Corpuscular Hemoglobin 30.3 pg (25.0-34.0); Mean Corpuscular Volume 89.1 fL (80.0-100.0); Mean Platelet Volume 11.9 fL (9.4-12.4); Platelet Count 162 K/uL (130-400); RDW Coefficient of Variation 16.6 % (11.5-14.5); RDW Standard Deviation 54.2 fL (36.4-46.3); White Blood Count 9.33 K/ul (4.8-10.8)
[2024-05-18 06:54] LABS: BUN Creatinine Ratio 42.6 (10-20); Calcium 8.6 mg/dl (8.6-10.3); Creatinine Clr Calc Pharmacy 29.5 ml/min; Est GFR (African American) 39.8 ml/min; Est GFR (Non-African American) 34.4 ml/min; Potassium 4.4 mmol/L (3.5-5.1)
[2024-05-18 11:20] VITALS: TEMP 97.4; O2SAT 96
--- NOTE | 2024-05-18 15:04 | Discharge Summary ---
Date of Service May 18, 2024 Admission HPI Per Admitting Provider Inga Barakat is an 83y/o F with PMHx of DM type II, secondary hyperparathyroidism, diabetic retinopathy, CKD stage III, hypothyroidism, polyneuropathy, PVD, HLD, RADHA, moderate persistent asthma, nocturnal hypoxemia, COPD, paroxysmal atrial fibrillation s/p Watchman procedure, sick sinus syndrome s/p pacemaker placement, pulmonary hypertension, chronic diastolic CHF, left carotid artery aneurysm, aortic atherosclerosis, severe tricuspid regurgitation, s/p mitral valve clip for severe mitral regurgitation, GERD, sigmoid diverticulosis, Mnire's disease, anemia, history of TIA, history of endometrial cancer, depression and other problems listed below who presented to the ED today for evaluation of generalized weakness. History obtained from patient, son at bedside and associated chart review. Patient reports that she has felt more weak over the past few days. Has been battling increased nausea and vomiting over the past 3 days. Her oral intake has been significantly decreased. Reports she has been trying to hydrate well. She has chronic diarrhea at baseline, has not noticed an increase in frequency. No urinary symptoms reported. Denies any fevers, cough or sinus congestion. She had recent lab work ordered by her PCP. Was called today and informed that her creatinine was elevated, her LFTs were elevated and that her white blood cell count was elevated. Therefore she was instructed to come to the ED for further evaluation. Patient was recently treated with doxycycline for a right great toe infection. Son reports that this antibiotic was ordered by her air dispatcher. Patient completed the course of antibiotics yesterday. She denies any recent sick contacts, however she recently was diagnosed with COVID during her hospitalization here last month. Patient wears 2L O2 HS at baseline. Does not require oxygen support throughout the day. Admission Exam Per Admitting Provider General: WD/WN, vitals as above, NAD, laying down in bed, pleasant, conversing appropriately. A+Ox3, euthymic affect. HEENT: Normocephalic, atraumatic. PERRL, conjunctivae normal, anicteric sclerae, oropharynx slightly dry. Respiratory: Normal respiratory effort, lungs clear to auscultation, no wheeze, rales, rhonchi. No accessory muscle use. Cardiovascular: Regular rate, rhythm, no murmur, normal peripheral pulses, 1+ BLE edema. Vessels: No JVD. Abdomen/GI: Normal bowel sounds, soft, nontender, no hepatosplenomegaly. Extremities/Musculoskeletal: No cyanosis or clubbing, extremities motor strength intact, moves all extremities. Neurologic: EOMI, accommodation nl, no face palsy, no dysarthria, CN's II-XI not formally tested but appear grossly intact bilaterally. Skin: No rashes, normal color, warm/dry. Right great toe with mild medial erythema, no discharge and not tender to palpation. Principal Diagnosis Generalized weakness Discharge Exam General: WD/WN, vitals as above, NAD, laying down in bed, pleasant, conversing appropriately. A+Ox3, euthymic affect. HEENT: Normocephalic, atraumatic. PERRL, conjunctivae normal, anicteric sclerae, oropharynx slightly Moist. Respiratory: Normal respiratory effort, lungs clear to auscultation, no wheeze, rales, rhonchi. No accessory muscle use. Cardiovascular: Regular rate, rhythm, no murmur, normal peripheral pulses, trace BLE edema. Vessels: No JVD. Abdomen/GI: Normal bowel sounds, soft, nontender, no hepatosplenomegaly. Extremities/Musculoskeletal: No cyanosis or clubbing, extremities motor strength intact, moves all extremities. Neurologic: EOMI, accommodation nl, no face palsy, no dysarthria, CN's II-XI not formally tested but appear grossly intact bilaterally. Skin: No rashes, normal color, warm/dry. Right great toe with mild medial erythema, no discharge and not tender to palpation. Discharge Data Allergies Allergy/AdvReac Type Severity Reaction Status Date / Time Sulfa (Sulfonamide Allergy Severe Severe Verified 04/13/24 00:16 Antibiotics) rxn: rash and hives celecoxib Allergy Intermediate Rash/Hives/ Verified 04/13/24 00:16 Itching. cephalexin Allergy Intermediate Rash/Hives/ Verified 04/13/24 00:16 Itching. furosemide Allergy Intermediate Rash/Hives/ Verified 04/13/24 00:16 Itching. gabapentin Allergy Intermediate Rash/Hives/ Verified 04/13/24 00:16 Itching. pregabalin Allergy Intermediate Rash/Hives/ Verified 04/13/24 00:16 Itching. meclizine Allergy Unknown Unknown Verified 04/13/24 00:16 methylprednisolone Allergy Unknown Rash/Hives/ Verified 04/13/24 00:16 Itching. Penicillins Allergy Unknown Unknown. Verified 04/13/24 00:16 prednisone Allergy Unknown Rash/Hives/ Verified 04/13/24 00:16 Itching. vancomycin Allergy Unknown Jodi Verified 04/13/24 00:16 syn. . nickel Allergy Unknown Verified 04/13/24 00:16 dexamethasone AdvReac Intermediate Steroid Verified 04/13/24 00:16 psychosis. Consultations 05/13/24 18:26 ED Decision to Admit Stat 05/13/24 20:08 Consult Nephrology Routine Ordered Studies 05/13/24 20:29 CT abd pelvis wo con Routine Hospital Course (1) Generalized weakness: (2) TIFFANY (acute kidney injury): Plan 83y/o F with PMHx of DM type II, secondary hyperparathyroidism, diabetic retinopathy, CKD stage III, hypothyroidism, polyneuropathy, PVD, HLD, RADHA, moderate persistent asthma, nocturnal hypoxemia, COPD, paroxysmal atrial fibrillation s/p Watchman procedure, sick sinus syndrome s/p pacemaker placement, pulmonary hypertension, chronic diastolic CHF, left carotid artery aneurysm, aortic atherosclerosis, severe tricuspid regurgitation, s/p mitral valve clip for severe mitral regurgitation, GERD, sigmoid diverticulosis, Mnire's disease, anemia, history of TIA, history of endometrial cancer, dep ression and other problems listed below who presented to the ED for evaluation of generalized weakness. she was managed for the following: Generalized Weakness, Nausea/Vomiting: Infection due to COVID-19 virus: At admission:Leukocytosis noted. No fever. COVID-positive, CXR negative. Lactate negative. procalcitonin minimally elevated. CTAP negative for infection.UA neg ative. Received a liter of IV fluid in the ED. Isolation precautions. PT/OT. PRN IV Zofran. Pt eating better and reports strength improving. TIFFANY on CKD Stage III: Cr 2.29 on admission. Baseline Cr ~1.7-1.8 per chart review. s/p ivf, resolved. c/w torsemide. Mild Transaminitis: AST 64 and Alk Phos 260 on admission. Appears patient's LFTs are elevated at baseline. Elevated Troponin:Troponin slightly bumped at 14.1; troponin x 3 negative. Likely chronic elevation. EKG without any overt ischemic changes. No chest pain. Chronic Diastolic CHF, Severe Tricuspid Regurgitation: Mild BLE edema on exam. Monitor closely for volume overload. CXR negative for any edema/effusions. torsemide as above. RADHA, Nocturnal Hypoxia: Continue baseline 2L O2 HS. Paroxysmal AFib S/P Watchman Procedure: Continue metoprolol succinate and aspirin therapy. Continuous cardiac monitoring in place, metoprolol with hold parameters. Asthma/COPD: Can continue home medications. DM Type II: Diet-controlled. A1c was 6.9% on 03/24/24. Hold off on SSI for now. BSG checks ACHS. Monitor BSG. Other Chronic Medical Conditions: Hypothyroidism, HLD, gout, GERD and depression --> Can continue home medications for these specific conditions. DVT Prophylaxis: SQ Heparin Code Status: FULL CODE PCP: Florentin Calvo, Patient family would like to take her home with outpatient physical therapy. Patient is being discharged with following instruction at the point of discharge: Follow-up with your primary care physician within a week time and likely you will need labs CBC/CMP/magnesium/phosphorus. You were evaluated for acute kidney injury over your underlying chronic kidney disease and also for infection due to COVID-19 virus. Your kidney function improved, recommend that you follow-up with nephrology upon discharge. Take your medications as prescribed. Please make sure that you are able to get your medications today by calling your pharmacy before you leave the hospital so that your treatment continuity is not broken. Home Health Attestation I certify that this patient is under my care and that I, or a physicians bookkeeper assistant working with me, had a face to-face encounter that meets the home health [id number] encounter requirements with this patient. The encounter with the patient was in whole, or in part, for the following medical condition, which is the primary reason for home health care (list medical condition): I certify that, based on my findings, the following services are medically necessary home health services: My clinical findings support the need for the above services because: Further, I certify that my clinical findings support that this patient is homebound (i.e. absences from home require considerable and taxing effort and are for medical reasons or confucianist services or infrequently or of short duration when for other reasons) because: Certification for Home Health Services: Based on the above findings, I certify that this patient is confined to the home and needs intermittent fdc care, physical therapy and/or speech therapy or continues to need occupational therapy. The patient is under my care, and I have initiated the establishment of the plan of care. This patient will be followed by a physician who will periodically review the plan of care. Total Time Total Time Spent Total Time Spent (In Minutes): 45 Discharge Plan Discharge Items Patient Disposition: Home - Self-Care Reason For Visit: GENERALIZED WEAKNESS Discharge Diagnosis: Generalized weakness, nausea/vomiting Infection due to COVID-19 virus TIFFANY over CKD stage III Mild transaminitis Activity: As commented below Activity Comment: Continue with PT/OT upon discharge. Non-emergency contact: Primary Care Provider Call non-emergency contact if: you have any medication questions Follow-up/Referrals: Florentin Calvo DO [Primary Care Provider] - (Date & Time 05/21/2024 2:00 PM Provider Nurse [facility] [address] Date & Time 05/21/2024 2:20 PM Provider Florentin Calvo DO [address] ) Michelle Ivy PA [Physician [employer]] - (Date & Time 07/09/2024 1:00 PM Provider Michelle Ivy PA-C Department Nephrology, [facility] ) Diet: Heart Healthy Addtl Attending Provider Instructions: Follow-up with your primary care physician within a week time and likely you will need labs CBC/CMP/magnesium/phosphorus. You were evaluated for acute kidney injury over your underlying chronic kidney disease and also for infection due to COVID-19 virus. Your kidney function improved, recommend that you follow-up with nephrology upon discharge. Take your medications as prescribed. Please make sure that you are able to get your medications today by calling your pharmacy before you leave the hospital so that your treatment continuity is not broken. Pending Studies at Discharge: Yes Stand-Alone Forms: My [facility] [employer] Smoking Cessation Medications and DC Order Prescriptions: Continued montelukast 10 mg tablet 10 mg PO PM ipratropium bromide 21 mcg (0.03 %) spray,non-aerosol 2 spray INTRANASAL DAILY PRN (Reason: rhinorrhea ) pantoprazole 40 mg tablet,delayed release (DR/EC) 40 mg PO BID Qty: 60 0RF atorvastatin 20 mg tablet 20 mg PO QAM cholecalciferol (vitamin D3) [Vitamin D3] 50 mcg (2,000 unit) Capsule 100 mcg PO QAM sertraline 100 mg Tablet 150 mg PO QAM levalbuterol tartrate [Xopenex HFA] 45 mcg/actuation Hfa Aerosol Inhaler 1 puff INHALATION Q4H PRN (Reason: Shortness Of Breath) torsemide 10 mg tablet 20 mg PO QAM Stiolto Respimat 2.5-2.5 mcg/actuation mist 2 puff INHALATION QAM allopurinol 300 mg tablet 300 mg PO HS metoprolol succinate 25 mg Tablet Extended Release 24 Hr 25 mg PO BID Qty: 60 0RF levothyroxine 175 mcg tablet 175 mcg PO DAILYBB fentanyl 12 mcg/hr patch 72 hour 12 mcg transdermal Q3D aspirin 81 mg Tablet,Delayed Release (Dr/Ec) 81 mg PO QAM Qty: 30 0RF oxycodone 5 mg Tablet 5 mg PO QID PRN (Reason: pain severe) Qty: 35 0RF Rx Instructions: Ongoing therapy acetaminophen [Tylenol Extra Strength] 500 mg Tablet 1,000 mg PO Q6H PRN (Reason: Pain) guaifenesin [Mucinex] 600 mg Tablet Extended Release 12hr 600 mg PO Q12 PRN (Reason: cough) Qty: 20 0RF benzonatate 100 mg capsule 100 mg PO Q6H PRN (Reason: cough) Qty: 20 0RF diphenoxylate-atropine 2.5-0.025 mg tablet 1 tab PO BID PRN (Reason: Diarrhea) ondansetron HCl 4 mg tablet 4 mg PO UD PRN (Reason: Nausea And Vomiting) buspirone 5 mg tablet 5 mg PO AMHS Discharge Orders: Discharge Order (Routine); Ordered 05/18/24 Ordered By: Deepa Herrera Admission Data Admit Date/Time: 05/13/24 18:41 Attending Provider: Deepa Herrera Admit Provider: Ashley Wilkinson Primary Care Provider: Florentin Calvo Other Providers: Ashley Wilkinson; [facility]; [facility] Other Interventions: Discharge Summary Assessment (RN) Last Done: 05/18/24 16:31
[2024-05-18 16:33] VITALS: BP 91/58; PULSE 75
== END 2024-05-18 17:18 | disposition home or self-care (01) | DRG 178 ==
LOC: ED 15:59 → SUATTDRO 18:41 → EDINP 18:41 → 2W 05-14 02:49

== ENCOUNTER 2024-05-24 11:52 | Inpatient (IN) ==
--- NOTE | 2024-05-24 12:04 | Emergency Department Note ---
Impression & Plan Closed intertrochanteric fracture of right hip, Fall ED Provider Note NAME: LORI MORALES AGE: 83 SEX: F : 1940 ARRIVES VIA: Ambulance INFORMANT: Patient, EMS ED PROVIDER(S): Carlos Lizama DO CHIEF COMPLAINT: Fall HPI: The patient is an 83-year-old female who presented to the emergency department for an evaluation after a fall. The patient had a fall from a standing position prior to arrival. She does have a history of previous falls in the past. She does take oral anticoagulants but these were stopped recently because of the patient's frequent falls. She has not been on blood thinners for several days. The patient denies striking her head. She denies having any neck pain. She denies having any back pain. She was unable to stand. The patient arrived via ambulance. She was given fentanyl prior to arrival with some relief of her symptoms. ROS: See above HPI for pertinent positives & negatives. A total of 10 systems reviewed and were otherwise negative. PAST MEDICAL HISTORY: See Below PAST SURGICAL HISTORY: See Below FAMILY HISTORY: See Below SOCIAL HISTORY: See Below HOME MEDICATIONS: See Below ALLERGIES: See Below VITALS: See Below PHYSICAL EXAMINATION: GENERAL: The patient is awake and alert. The patient is very anxious and appears to be uncomfortable. EYES: The conjunctivae are clear. The pupils are round and reactive. EARS, NOSE, MOUTH AND THROAT: The nose is without any evidence of any deformity. Mucous membranes are moist. NECK: Cervical spine was clinically cleared in the emergency department. RESPIRATORY: Normal respiratory effort is noted there is no evidence of wheezing rhonchi or rales CARDIOVASCULAR: Regular rate and rhythm noted there no murmurs rubs or gallops normal S1 normal S2. GASTROINTESTINAL: The abdomen is soft. Abdomen is nontender. BACK: No midline tenderness or or step-off noted range of motion in flexion extension as well as rotation no signs of muscle spasm noted MUSCULOSKELETAL/EXTREMITIES: Right lower extremity was shortened and externally rotated. Pulses were symmetric in both feet. SKIN: There is no obvious evidence of any rash. There are no petechiae, pallor or cyanosis noted. NEUROLOGIC: Patient is awake alert and oriented x3 MEDICAL DECISION MAKING: The patient is an 83-year-old female who presented to the emergency department for an evaluation after a fall. The patient has a history of frequent falls. She also has a history of atrial flutter but he does not take anticoagulation because of her frequent falls. I discussed the patient's laboratory and radiographic studies with her and her son. She was found to have a right sided hip fracture. She was treated with pain medication. On reevaluation she was somewhat improved. I discussed her condition with the on-call [facility] hospitalist. They have agreed to evaluate the patient in the emergency department for further management and disposition. Triage Nursing notes reviewed. Prior medical records reviewed Vital Signs: reviewed and remarkable for no significant abnormalities Differential diagnosis: Fracture, subluxation, dislocation, contusion, ligamentous injury, neurovascular, compartment syndrome, rhabdomyolysis, as well as other pathologies. ER treatment provided: See below Diagnostics interpreted by me: ECG: EKG was obtained in the emergency department. My interpretation is atrial flutter at 90 bpm. There were no PVCs noted. Nonspecific ST abnormalities were noted in the lower lateral leads. This was compared to a tracing from May 13, 2024. No changes were noted. Cardiac Monitoring: An order was placed for continuous cardiac monitoring. The monitor shows a rate of 87 bpm with atrial flutter. Laboratory studies: As stated above and show below. Imaging studies: See below. Radiographic imaging was reviewed by myself Consultation(s): I discussed this case with Jackie who is on-call for the [facility] hospitalist group. 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 difficile diarrhea (Acute) Adult failure to thrive (Acute) Generalized weakness (Acute) S/P mitral valve clip implantation Presence of Watchman left atrial appendage closure device CAD (coronary artery disease) Cardiac pacemaker in situ (Acute) CKD (chronic kidney disease) (Acute) Anemia (Acute) TIA (transient ischemic attack) (Acute) Depression Hypothyroidism RADHA (obstructive sleep apnea) SSS (sick sinus syndrome) Chronic diastolic (congestive) heart failure CKD (chronic kidney disease), stage III TIA (transient ischemic attack) Anemia (Acute) Leukocytosis (Acute) Chronic anticoagulation (Acute) Acute renal insufficiency Severe mitral insufficiency Acute on chronic diastolic heart failure Paroxysmal atrial fibrillation Stroke-like symptoms (Acute) Acute on chronic anemia COVID-19 (Acute) COVID-19 (Acute) History of tobacco abuse Asthma, moderate persistent (Chronic) Meniere disease (Chronic) Atrial fibrillation and flutter (Chronic) History of laminectomy (Chronic) H/O sinus surgery (Chronic) Hx of neck surgery (Chronic) History of repair of left rotator cuff (Chronic) Medical History Generalized weakness Pericardial effusion Low back pain Angio-edema Nausea Leukocytosis Near syncope Hypotension Dehydration TIFFANY (acute kidney injury) Near syncope Elevated brain natriuretic peptide (BNP) level Pneumonia Atrial flutter Carotid artery aneurysm Prolonged QT interval Atrial fibrillation with RVR DM type 2 (diabetes mellitus, type 2) Encounter for pre-operative examination Cholelithiasis Cholecystitis Chest pain at rest Pulmonary emphysema Osteoarthritis of right knee HTN (hypertension) Surgical History History of hysterectomy History of cholecystectomy Family History Father Diabetes Social History Smoking Status: Never smoker Tobacco Type: Cigarettes packs per day: 1.5; Cigarettes Per Day: 30; Second Hand Exposure: No; Do You Dip or Chew Tobacco: No; Hx Alcohol Use: No Hx Substance Use: No Preferred Language: Yakut Communication Ability: Effective Stamp Mounter Required: No Beliefs That Will Affect Care: None marital status: Current Living Situation: Spouse Feels Safe at Home: Yes Assistive Devices: Oxygen - at Night Allergies Allergies Allergy/AdvReac Type Severity Reaction Status Date / Time Sulfa (Sulfonamide Allergy Severe Severe Verified 04/13/24 00:16 Antibiotics) rxn: rash and hives celecoxib Allergy Intermediate Rash/Hives/ Verified 04/13/24 00:16 Itching. cephalexin Allergy Intermediate Rash/Hives/ Verified 04/13/24 00:16 Itching. furosemide Allergy Intermediate Rash/Hives/ Verified 04/13/24 00:16 Itching. gabapentin Allergy Intermediate Rash/Hives/ Verified 04/13/24 00:16 Itching. pregabalin Allergy Intermediate Rash/Hives/ Verified 04/13/24 00:16 Itching. meclizine Allergy Unknown Unknown Verified 04/13/24 00:16 methylprednisolone Allergy Unknown Rash/Hives/ Verified 04/13/24 00:16 Itching. Penicillins Allergy Unknown Unknown. Verified 04/13/24 00:16 prednisone Allergy Unknown Rash/Hives/ Verified 04/13/24 00:16 Itching. vancomycin Allergy Unknown Jodi Verified 04/13/24 00:16 syn. . nickel Allergy Unknown Verified 04/13/24 00:16 dexamethasone AdvReac Intermediate Steroid Verified 04/13/24 00:16 psychosis. Home Meds Home Medications Medication Instructions Recorded Confirmed montelukast 10 mg tablet 10 mg PO PM 04/08/19 05/24/24 atorvastatin 20 mg tablet 20 mg PO QAM 11/26/21 05/24/24 cholecalciferol (vitamin D3) 50 100 mcg PO QAM 11/26/21 05/24/24 mcg (2,000 unit) capsule (Vitamin D3) levalbuterol tartrate 45 1 puff inhalation Q4H PRN 08/07/22 05/24/24 mcg/actuation aerosol inhaler Shortness Of Breath (Xopenex HFA) sertraline 100 mg tablet 150 mg PO QAM 08/07/22 05/24/24 tiotropium 2.5 mcg-olodaterol 2.5 2 puff inhalation QAM 11/07/22 05/24/24 mcg/actuation mist for inhalation (Stiolto Respimat) torsemide 10 mg tablet 20 mg PO QAM 11/07/22 05/24/24 ipratropium bromide 21 mcg (0.03 2 spray intranasal DAILY PRN 12/06/22 05/24/24 %) nasal spray rhinorrhea allopurinol 300 mg tablet 300 mg PO HS 08/14/23 05/24/24 diphenoxylate-atropine 2.5 1 tab PO BID PRN Diarrhea 03/07/24 05/24/24 mg-0.025 mg tablet levothyroxine 175 mcg tablet 175 mcg PO DAILYBB 03/21/24 05/24/24 fentanyl 12 mcg/hr transdermal 12 mcg transdermal Q3D 03/23/24 05/24/24 patch acetaminophen 500 mg tablet 1,000 mg PO Q6H PRN Pain 04/13/24 05/24/24 (Tylenol Extra Strength) buspirone 5 mg tablet 5 mg PO AMHS 05/13/24 05/24/24 ondansetron HCl 4 mg tablet 4 mg PO UD PRN Nausea And Vomiting 05/13/24 05/24/24 Previous Rx's Medication Instructions Recorded pantoprazole 40 mg tablet,delayed 40 mg PO BID #60 tabs 12/09/22 release metoprolol succinate 25 mg 25 mg PO BID #60 tabs 10/22/23 tablet,extended release 24 hr aspirin 81 mg tablet,delayed 81 mg PO QAM #30 tabs 03/25/24 release oxycodone 5 mg tablet 5 mg PO QID PRN pain severe #35 03/25/24 tabs benzonatate 100 mg capsule 100 mg PO Q6H PRN cough #20 caps 04/15/24 guaifenesin 600 mg tablet, 600 mg PO Q12 PRN cough #20 tabs 04/15/24 extended release 12 hr (Mucinex) Results & Data (ED) Vital Signs Vital Signs - 24 hr 05/24/24 11:41 05/24/24 11:41 05/24/24 12:00 Temperature 36.3 C L 36.3 C L Temperature Source Oral Oral Pulse Rate 87 87 Pulse Rate [Right Finger] 87 Respiratory Rate 18 18 18 Respiratory Effort / Characteristics Non-Labored Spontaneous Non-Labored Spontaneous Blood Pressure 124/69 Blood Pressure [Right Arm] 124/69 Blood Pressure Mean 87 Blood Pressure Mean [Right Arm] 87 Blood Pressure Position Lying Blood Pressure Position [Right Arm] Lying Pulse Oximetry 95 95 95 Oxygen Delivery Method Room Air Room Air Room Air Sepsis Recent Fever Within 48 Hours No Sepsis New/Unexplained Change in Mental Status No Sepsis Action Taken by Nursing No Action Required Home Medications Current Medication List: was personally reviewed by me Laboratory Data Attestation: I reviewed the patient's lab results. 05/24/24 12:04 05/24/24 12:04 Lab Results 05/24/24 Range/Units 12:04 WBC 9.99 (4.8-10.8) K/ul RBC 2.99 L (4.20-5.40) M/uL Hgb 9.1 L (12.0-16.0) g/dl Hct 27.1 L (37.0-47.0) % MCV 90.6 (80.0-100.0) fL MCH 30.4 (25.0-34.0) pg MCHC 33.6 (32.0-36.0) g/dL RDW Std Deviation 56.6 H (36.4-46.3) fL RDW Coeff of Francisco Javier 17.4 H (11.5-14.5) % Plt Count 181 (130-400) K/uL MPV 10.6 (9.4-12.4) fL Immature Gran % (Auto) 0.7 % Neut % (Auto) 69.2 % Lymph % (Auto) 11.8 % [place]he % (Auto) 8.2 % Eos % (Auto) 9.8 % Baso % (Auto) 0.3 % Neut # (Auto) 6.91 H (1.40-6.50) K/uL Lymph # (Auto) 1.18 L (1.20-3.40) K/uL Ashe # (Auto) 0.82 H (0.11-0.59) K/uL Eos # (Auto) 0.98 H (0.00-0.50) K/uL Baso # (Auto) 0.03 (0.00-0.20) K/uL Immature Gran # (Auto) 0.07 (0.01-0.20) K/uL Absolute Nucleated RBC 0.03 (0.00-0.12) K/uL Nucleated RBC % (auto) 0.3 % PT 11.1 (9.0-12.0) Seconds INR 1.0 (0.9-1.1) APTT 27 (21-31) Seconds PTT Ratio 1.0 Sodium 137 (136-145) mmol/L Potassium 4.1 (3.5-5.1) mmol/L Chloride 105 (98-107) mmol/L Carbon Dioxide 24 (21-32) mmol/L Anion Gap 8 (3-11) BUN 37 H (6-23) mg/dl Creatinine 1.39 H (0.6-1.2) mg/dl Est Cr Clr Drug Dosing 31.3 ml/min Est GFR ( Amer) 40.5 ml/min Est GFR (Non-Af Amer) 35.0 ml/min BUN/Creatinine Ratio 26.6 H (10-20) Glucose 129 H (70-99(Fasting)) mg/dl Calcium 8.9 (8.6-10.3) mg/dl Total Bilirubin 0.4 (0.2-1.0) mg/dl AST 49 H (13-39) U/L ALT 29 (7-52) U/L Alkaline Phosphatase 230 H (34-104) U/L Troponin I High Sens 13.7 (0-14) pg/ml Total Protein 6.0 (6.0-8.3) gm/dl Albumin 3.2 L (3.4-5.0) gm/dl Globulin 2.8 (2.5-4.0) gm/dl Albumin/Globulin Ratio 1.1 (0.9-2) Lipase 73 (11-82) U/L Procalcitonin 0.30 (0-0.5) ng/ml Administered Medications Fentanyl Citrate (Fentanyl Citrate Pf 100 Mcg/2 Ml Vial) 50 mcg IV Q15M PRN PRN Reason: Pain Stop: 06/07/24 11:59 Last Admin: 05/24/24 14:11 Dose: 50 mcg Documented By: Admin: 05/24/24 12:42 Dose: 50 mcg Documented By: Admin: 05/24/24 12:08 Dose: 50 mcg Documented By: ANNETTA Hydromorphone HCl (Hydromorphone Inj 0.5 Mg/0.5 Ml Syr) 0.5 mg IV Q6H PRN PRN Reason: Severe Pain (Scale 7, 8, 9,10) Stop: 06/07/24 13:42 Last Admin: 05/24/24 15:16 Dose: 0.5 mg Documented By: LEEANNE Discontinued Medications Ondansetron HCl (Ondansetron Inj 2 Mg/Ml 2 Ml Vial) 4 mg IV NOW STA Stop: 05/24/24 12:01 Last Admin: 05/24/24 12:06 Dose: 4 mg Documented By: ANNETTA Imaging Data Attestation: I personally reviewed and interpreted this imaging study as follows: My Impression: 1 view chest x-ray was obtained in the emergency department. My interpretation is cardiomegaly, final report below. X-ray of the right hip and pelvis was obtained. My interpretation is right hip fracture, final report below. Radiologist's Impression: Chest X-Ray 05/24/24 12:00 XR chest 1V portable CLINICAL HISTORY: Chest pain, nonspecific TECHNIQUE: Single frontal radiograph of the chest was obtained. Comparison: Comparison is made to chest radiograph 05/13/2024 FINDINGS: An implanted pacemaker is seen. Cardiomegaly is noted. The aortic arch is calcified. There is prominence and cephalization of the vasculature with Meaghan B lines seen. Faint bilateral airspace opacities are seen. No evidence of pleural effusion or pneumothorax. IMPRESSION: Cardiomegaly and moderate pulmonary edema. Bilateral airspace opacities may represent atelectasis, pneumonia, and/or alveolar edema. ACT 112: Negative or not required by law. Electronically signed by: Christian Murray M.D. 05/24/2024 12:32 PM Hip/Pelvis X-Ray 05/24/24 12:00 XR hip RT 2V w pelvis CLINICAL HISTORY: Fall. COMPARISON: CT of the abdomen and pelvis May 12, 2024. FINDINGS: Sacroiliac joints and symphysis pubis are intact. There is an acute displaced angulated intertrochanteric fracture of the right femur. No additional fractures are present. IMPRESSION: Acute displaced angulated intertrochanteric fracture of the right femur. ACT 112: Negative or not required by law. Electronically signed by: Otoniel Lemus M.D. 05/24/2024 12:24 PM Discharge Plan Visit Data Chief Complaint: Hip Pain ED Provider: Carlos Lizama Prescriptions Prescriptions: No Action montelukast 10 mg tablet 10 mg PO PM ipratropium bromide 21 mcg (0.03 %) spray,non-aerosol 2 spray INTRANASAL DAILY PRN (Reason: rhinorrhea ) pantoprazole 40 mg tablet,delayed release (DR/EC) 40 mg PO BID Qty: 60 0RF atorvastatin 20 mg tablet 20 mg PO QAM cholecalciferol (vitamin D3) [Vitamin D3] 50 mcg (2,000 unit) Capsule 100 mcg PO QAM sertraline 100 mg Tablet 150 mg PO QAM levalbuterol tartrate [Xopenex HFA] 45 mcg/actuation Hfa Aerosol Inhaler 1 puff INHALATION Q4H PRN (Reason: Shortness Of Breath) torsemide 10 mg tablet 20 mg PO QAM Stiolto Respimat 2.5-2.5 mcg/actuation mist 2 puff INHALATION QAM allopurinol 300 mg tablet 300 mg PO HS metoprolol succinate 25 mg Tablet Extended Release 24 Hr 25 mg PO BID Qty: 60 0RF levothyroxine 175 mcg tablet 175 mcg PO DAILYBB fentanyl 12 mcg/hr patch 72 hour 12 mcg transdermal Q3D aspirin 81 mg Tablet,Delayed Release (Dr/Ec) 81 mg PO QAM Qty: 30 0RF oxycodone 5 mg Tablet 5 mg PO QID PRN (Reason: pain severe) Qty: 35 0RF Rx Instructions: Ongoing therapy acetaminophen [Tylenol Extra Strength] 500 mg Tablet 1,000 mg PO Q6H PRN (Reason: Pain) guaifenesin [Mucinex] 600 mg Tablet Extended Release 12hr 600 mg PO Q12 PRN (Reason: cough) Qty: 20 0RF benzonatate 100 mg capsule 100 mg PO Q6H PRN (Reason: cough) Qty: 20 0RF diphenoxylate-atropine 2.5-0.025 mg tablet 1 tab PO BID PRN (Reason: Diarrhea) ondansetron HCl 4 mg tablet 4 mg PO UD PRN (Reason: Nausea And Vomiting) buspirone 5 mg tablet 5 mg PO AMHS Discharge Problem:
[2024-05-24] MEDS: ONDANSETRON INJ 2 MG/ML 2 ML VIAL IV STA (12:06)
[2024-05-24] MEDS: fentaNYL citrate PF 100 MCG/2 ML VIAL IV PRN (12:08)
[2024-05-24 12:23] LABS: Basophils # (auto) 0.03 K/uL (0.00-0.20); Basophils % (auto) 0.3 %; Eosinophils # (auto) 0.98 K/uL (0.00-0.50); Eosinophils % (auto) 9.8 %; Hematocrit (blood only) 27.1 % (37.0-47.0); Hemoglobin 9.1 g/dl (12.0-16.0); Immature Granulocytes # (auto) 0.07 K/uL (0.01-0.20); Immature Granulocytes % (auto) 0.7 %; Lymphocytes # (auto) 1.18 K/uL (1.20-3.40); Lymphocytes % (auto) 11.8 %; Mean Corpuscular Hemoglobin 30.4 pg (25.0-34.0); Mean Corpuscular Hgb Conc 33.6 g/dL (32.0-36.0); Mean Corpuscular Volume 90.6 fL (80.0-100.0); Mean Platelet Volume 10.6 fL (9.4-12.4); Monocytes # (auto) 0.82 K/uL (0.11-0.59); Monocytes % (auto) 8.2 %; Neutrophils # (auto) 6.91 K/uL (1.40-6.50); Neutrophils % (auto) 69.2 %; Nucleated RBC # (auto) 0.03 K/uL (0.00-0.12); Nucleated RBC % (auto) 0.3 %; Platelet Count 181 K/uL (130-400); RDW Coefficient of Variation 17.4 % (11.5-14.5); RDW Standard Deviation 56.6 fL (36.4-46.3); Red Blood Count 2.99 M/uL (4.20-5.40); White Blood Count 9.99 K/ul (4.8-10.8)
--- NOTE | 2024-05-24 12:26 | XRay Report ---
XR hip RT 2V w pelvis CLINICAL HISTORY: Fall. COMPARISON: CT of the abdomen and pelvis May 12, 2024. FINDINGS: Sacroiliac joints and symphysis pubis are intact. There is an acute displaced angulated in tertrochanteric fracture of the right femur. No additional fractures are present. IMPRESSION: Acute displaced angulated intertrochanteric fracture of the right femur. ACT 112: Negative or not required by law. Electronically signed by: Otoniel Lemus M.D. 05/24/2024 12:24 PM
--- NOTE | 2024-05-24 12:34 | XRay Report ---
XR chest 1V portable CLINICAL HISTORY: Chest pain, nonspecific TECHNIQUE: Single frontal radiograph of the chest was obtained. Comparison: Comparison is made to chest radiograph 05/13/2024 FINDINGS: An implanted pacemaker is seen. Cardiomegaly is noted. The aortic arch is calcified. There is promine nce and cephalization of the vasculature with Meaghan B lines seen. Faint bilateral airspace opacities are seen. No evidence of pleural effusion or pneumothorax. IMPRESSION: Cardiomegaly and moderate pulmonary edema. Bilateral airspace opacities may represent atelectasis, pn eumonia, and/or alveolar edema. ACT 112: Negative or not required by law. Electronically signed by: Christian Murray M.D. 05/24/2024 12:32 PM
[2024-05-24 12:36] LABS: Albumin Globulin Ratio 1.1 (0.9-2); Albumin Level 3.2 gm/dl (3.4-5.0); BUN Creatinine Ratio 26.6 (10-20); Bilirubin,Total 0.4 mg/dl (0.2-1.0); Calcium 8.9 mg/dl (8.6-10.3); Creatinine Clr Calc Pharmacy 31.3 ml/min; Est GFR (African American) 40.5 ml/min; Globulin 2.8 gm/dl (2.5-4.0); Potassium 4.1 mmol/L (3.5-5.1)
[2024-05-24 12:42] LABS: Troponin I High Sensitivity 13.7 pg/ml (0-14)
[2024-05-24 12:47] LABS: Partial Thromboplastin Time 27 Seconds (21-31); Prothrombin Time 11.1 Seconds (9.0-12.0)
--- NOTE | 2024-05-24 13:10 | History & Physical Report ---
Date of Service May 24, 2024 Assessment & Plan (1) Fall: (2) Fracture of right femur: Plan Inga Barakat is an 83y/o F with PMHx significant for DM type II, secondary hyperparathyroidism, diabetic retinopathy, CKD stage III, hypothyroidism, polyneuropathy, PVD, HLD, RADHA, moderate persistent asthma, nocturnal hypoxemia, COPD, paroxysmal atrial fibrillation s/p Watchman procedure, sick sinus syndrome s/p pacemaker placement, pulmonary hypertension, chronic diastolic CHF, left carotid artery aneurysm, aortic atherosclerosis, severe tricuspid regurgitation, s/p mitral valve clip for severe mitral regurgitation, GERD, sigmoid diverticulosis, Mnire's disease, anemia, history of TIA, history of endometrial cancer and depression who presented to the ED via EMS after sustaining a fall at home and was found to have an acute displaced angulated intertrochanteric fracture of the right femur. Right Femur Fracture S/P Fall: R hip XR shows an acute displaced angulated intertrochanteric fracture of the R femur. Ortho consult pending. Pain control. Smith cath ordered / patient's limited mobility. NPO for now. PT/OT evals. Severe Tricuspid Regurgitation Chronic Diastolic CHF, Pulmonary Edema: +1 BLE edema on exam. CXR shows moderate pulmonary edema. Will increase her torsemide to 20mg BID from her home dose of 20mg daily. CXR also showed b/l airspace opacities which may represent pneumonia/atelectasis/alveolar edema. No leukocytosis. Patient w/o SOB or cough on exam, however she recently had COVID- 19. No fevers. Procalcitonin pending - if elevated, will order a chest CT to check for pneumonia. CKD Stage III: Cr 1.39 on admission. Baseline Cr ~1.7-1.8 per chart review. Avoid nephrotoxic medications when able. Monitor renal function closely with AM labs. Mild Transaminitis: AST 49 and Alk Phos 230 on admission. Patient's LFTs are elevated at baseline. Will continue to monitor with AM labs. RADHA, Nocturnal Hypoxia: Continue baseline 2L O2 HS. Paroxysmal AFib S/P Watchman Procedure: Continue metoprolol succinate and aspirin therapy. Continuous cardiac monitoring in place, metoprolol with hold parameters. Asthma/COPD: Can continue home medications. DM Type II: Diet-controlled. A1c was 6.9% on 03/24/24. Hold off on SSI for now. BSG checks ACHS. Monitor BSG. Other Chronic Medical Conditions: Hypothyroidism, HLD, gout, GERD and depression --> Can continue home medications for these specific conditions. DVT Prophylaxis: SCDs/TEDs for now pending orthopedic surgery evaluation. Code Status: FULL CODE PCP: Florentin Calvo DO Disposition: Admit to Med/Surg +Telemetry Patient seen in collaboration with Dr. Polo. Please see addendum. I spent a total of 60 minutes coordinating, documenting, and providing care for this patient excluding time spent in the performance of separately billed services. This included personally reviewing all current laboratories and imaging studies, medical reconciliation, outpatient chart review and discussion with specialists. This chart was completed in part utilizing Speech Voice Recognition Software. Grammatical errors, random word insertions, pronoun errors, and incomplete sentences are an occasional consequence of this system due to software limitations, ambient noise, and hardware issues. Any formal questions or concerns about the content, text, or information contained within the body of this dictation should be directly addressed to the provider for clarification. History of Present Illness Chief Complaint: Fall, Right Hip Pain Primary Care Provider: Florentin Calvo DO Inga Barakat is an 83y/o F with PMHx significant for DM type II, secondary hyperparathyroidism, diabetic retinopathy, CKD stage III, hypothyroidism, polyneuropathy, PVD, HLD, RADHA, moderate persistent asthma, nocturnal hypoxemia, COPD, paroxysmal atrial fibrillation s/p Watchman procedure, sick sinus syndrome s/p pacemaker placement, pulmonary hypertension, chronic diastolic CHF, left carotid artery aneurysm, aortic atherosclerosis, severe tricuspid regurgitation, s/p mitral valve clip for severe mitral regurgitation, GERD, sigmoid diverticulosis, Mnire's disease, anemia, history of TIA, history of endometrial cancer and depression who presented to the ED via EMS after scanlon staining a fall at home. History obtained from patient, son at bedside and associated chart review. Patient reports she fell onto her right hip region after trying to get out of a chair at home. Mentions her right knee "gave out." Denies ever losing consciousness or hitting her head. She currently lives at home with her , who is tended to by a caregiver. This fall was unwitnessed however. She was unable to get up off of the floor herself and had to call her son for help, who therefore called the ambulance. Right hip XR in the ED shows an acute, displaced femur fracture. Patient rates her current pain as a 5/10 after receiving IV fentanyl in the ED. CXR in the ED did show moderate pulmonary edema. Patient reports an increase in her BLE edema from baseline. However she denies any SOB or chest pain. Reports she has been taking her torsemide as prescribed. Patient most recently admitted 05/13/24-05/18/24 for evaluation of generalized weakness and was found to have COVID-19. She also was treated for an TIFFANY. Work- up at that time was otherwise unremarkable for any acute new findings. Patient was discharged home with outpatient physical therapy. Of note, this is the aliza ent's 4th admission since February 2024. Allergies Allergy/AdvReac Type Severity Reaction Status Date / Time Sulfa (Sulfonamide Allergy Severe Severe Verified 04/13/24 00:16 Antibiotics) rxn: rash and hives celecoxib Allergy Intermediate Rash/Hives/ Verified 04/13/24 00:16 Itching. cephalexin Allergy Intermediate Rash/Hives/ Verified 04/13/24 00:16 Itching. furosemide Allergy Intermediate Rash/Hives/ Verified 04/13/24 00:16 Itching. gabapentin Allergy Intermediate Rash/Hives/ Verified 04/13/24 00:16 Itching. pregabalin Allergy Intermediate Rash/Hives/ Verified 04/13/24 00:16 Itching. meclizine Allergy Unknown Unknown Verified 04/13/24 00:16 methylprednisolone Allergy Unknown Rash/Hives/ Verified 04/13/24 00:16 Itching. Penicillins Allergy Unknown Unknown. Verified 04/13/24 00:16 prednisone Allergy Unknown Rash/Hives/ Verified 04/13/24 00:16 Itching. vancomycin Allergy Unknown Jodi Verified 04/13/24 00:16 syn. . nickel Allergy Unknown Verified 04/13/24 00:16 dexamethasone AdvReac Intermediate Steroid Verified 04/13/24 00:16 psychosis. Home Medications Medication Instructions Recorded Confirmed Type montelukast 10 mg tablet 10 mg PO PM 04/08/19 05/24/24 History atorvastatin 20 mg tablet 20 mg PO QAM 11/26/21 05/24/24 History cholecalciferol (vitamin D3) 50 100 mcg PO QAM 11/26/21 05/24/24 History mcg (2,000 unit) capsule (Vitamin D3) levalbuterol tartrate 45 1 puff inhalation Q4H PRN 08/07/22 05/24/24 History mcg/actuation aerosol inhaler Shortness Of Breath (Xopenex HFA) sertraline 100 mg tablet 150 mg PO QAM 08/07/22 05/24/24 History tiotropium 2.5 mcg-olodaterol 2.5 2 puff inhalation QAM 11/07/22 05/24/24 History mcg/actuation mist for inhalation (Stiolto Respimat) torsemide 10 mg tablet 20 mg PO QAM 11/07/22 05/24/24 History ipratropium bromide 21 mcg (0.03 2 spray intranasal DAILY PRN 12/06/22 05/24/24 History %) nasal spray rhinorrhea pantoprazole 40 mg tablet,delayed 40 mg PO BID #60 tabs 12/09/22 05/24/24 Rx release allopurinol 300 mg tablet 300 mg PO HS 08/14/23 05/24/24 History metoprolol succinate 25 mg 25 mg PO BID #60 tabs 10/22/23 05/24/24 Rx tablet,extended release 24 hr diphenoxylate-atropine 2.5 1 tab PO BID PRN Diarrhea 03/07/24 05/24/24 History mg-0.025 mg tablet levothyroxine 175 mcg tablet 175 mcg PO DAILYBB 03/21/24 05/24/24 History fentanyl 12 mcg/hr transdermal 12 mcg transdermal Q3D 03/23/24 05/24/24 History patch aspirin 81 mg tablet,delayed 81 mg PO QAM #30 tabs 03/25/24 05/24/24 Rx release oxycodone 5 mg tablet 5 mg PO QID PRN pain severe #35 03/25/24 05/24/24 Rx tabs acetaminophen 500 mg tablet 1,000 mg PO Q6H PRN Pain 04/13/24 05/24/24 History (Tylenol Extra Strength) benzonatate 100 mg capsule 100 mg PO Q6H PRN cough #20 caps 04/15/24 05/24/24 Rx guaifenesin 600 mg tablet, 600 mg PO Q12 PRN cough #20 tabs 04/15/24 05/24/24 Rx extended release 12 hr (Mucinex) buspirone 5 mg tablet 5 mg PO AMHS 05/13/24 05/24/24 History ondansetron HCl 4 mg tablet 4 mg PO UD PRN Nausea And Vomiting 05/13/24 05/24/24 History Past Med/Surg History Problem List Fracture of right femur Transaminitis Acute dehydration (Acute) TIFFANY (acute kidney injury) (Acute) Vomiting (Acute) Weakness (Acute) Nocturnal hypoxemia due to emphysema Chronic renal failure (CRF), stage 3b Acute bronchitis due to COVID-19 virus COVID-19 (Acute) Non-ST elevation [place] (NSTEMI) (Acute) Generalized weakness (Acute) Thoracic compression fracture Diarrhea Elevated troponin (Acute) C. difficile diarrhea (Acute) Adult failure to thrive (Acute) Generalized weakness (Acute) S/P mitral valve clip implantation Presence of Watchman left atrial appendage closure device CAD (coronary artery disease) Cardiac pacemaker in situ (Acute) CKD (chronic kidney disease) (Acute) Anemia (Acute) TIA (transient ischemic attack) (Acute) Depression Hypothyroidism RADHA (obstructive sleep apnea) SSS (sick sinus syndrome) Chronic diastolic (congestive) heart failure CKD (chronic kidney disease), stage III TIA (transient ischemic attack) Anemia (Acute) Leukocytosis (Acute) Chronic anticoagulation (Acute) Acute renal insufficiency Severe mitral insufficiency Acute on chronic diastolic heart failure Paroxysmal atrial fibrillation Stroke-like symptoms (Acute) Acute on chronic anemia COVID-19 (Acute) COVID-19 (Acute) History of tobacco abuse Asthma, moderate persistent (Chronic) Meniere disease (Chronic) Atrial fibrillation and flutter (Chronic) History of laminectomy (Chronic) H/O sinus surgery (Chronic) Hx of neck surgery (Chronic) History of repair of left rotator cuff (Chronic) Medical History Generalized weakness Pericardial effusion Low back pain Angio-edema Nausea Leukocytosis Near syncope Hypotension Dehydration TIFFANY (acute kidney injury) Near syncope Elevated brain natriuretic peptide (BNP) level Pneumonia Atrial flutter Carotid artery aneurysm Prolonged QT interval Atrial fibrillation with RVR DM type 2 (diabetes mellitus, type 2) Encounter for pre-operative examination Cholelithiasis Cholecystitis Chest pain at rest Pulmonary emphysema Osteoarthritis of right knee HTN (hypertension) Surgical History History of hysterectomy History of cholecystectomy Family History Father Diabetes Social History Smoking Status: Never smoker Tobacco Type: Cigarettes packs per day: 1.5; Cigarettes Per Day: 30; Second Hand Exposure: No; Do You Dip or Chew Tobacco: No; Hx Alcohol Use: No Hx Substance Use: No Preferred Language: Yoruba Communication Ability: Effective Leather Cutter Required: No Beliefs That Will Affect Care: None marital status: Current Living Situation: Spouse Feels Safe at Home: Yes Assistive Devices: Oxygen - at Night Review of Systems Review of Systems: At least ten systems reviewed and negative, except as noted in the HPI. Physical Exam Physical Exam: General: WD/WN, vitals as above, NAD, laying down in bed, pleasant, conversing appropriately. A+Ox3, euthymic affect. HEENT: Normocephalic, atraumatic. PERRL, conjunctivae normal, anicteric sclerae, oropharynx normal. Respiratory: Normal respiratory effort, mild crackles heard in bilateral lung bases. No accessory muscle use. Cardiovascular: Regular rate, rhythm, no murmur, normal peripheral pulses, 1+ BLE edema. Vessels: No JVD. Abdomen/GI: Normal bowel sounds, soft, nontender, no hepatosplenomegaly. Extremities/Musculoskeletal: No cyanosis or clubbing, unable to move her RLE without significant pain. Neurologic: EOMI, no focal deficits, CN's II-XI not formally tested but appear grossly intact bilaterally. Skin: No rashes, normal color, warm/dry. Results & Data Results & Data Vital Signs (Past 12 Hours) Vital Signs Temp Pulse Pulse Resp BP BP Pulse Ox 05/24/24 12:00 87 18 95 05/24/24 11:41 36.3 C L 87 18 124/69 95 05/24/24 11:41 36.3 C L 87 18 124/69 95 O2 Del Method 05/24/24 12:00 Room Air 05/24/24 11:41 Room Air 05/24/24 11:41 Room Air Laboratory Results Short CBC 05/24/24 Range/Units 12:04 WBC 9.99 (4.8-10.8) K/ul Hgb 9.1 L (12.0-16.0) g/dl Hct 27.1 L (37.0-47.0) % Plt Count 181 (130-400) K/uL BMP 05/24/24 12:04 Sodium 137 Potassium 4.1 Chloride 105 Carbon Dioxide 24 BUN 37 H Creatinine 1.39 H Glucose 129 H Calcium 8.9 Liver Function 05/24/24 Range/Units 12:04 Total Bilirubin 0.4 (0.2-1.0) mg/dl AST 49 H (13-39) U/L ALT 29 (7-52) U/L Alkaline Phosphatase 230 H (34-104) U/L Albumin 3.2 L (3.4-5.0) gm/dl Diagnostic Findings Chest X-Ray 05/24/24 12:00 XR chest 1V portable CLINICAL HISTORY: Chest pain, nonspecific TECHNIQUE: Single frontal radiograph of the chest was obtained. Comparison: Comparison is made to chest radiograph 05/13/2024 FINDINGS: An implanted pacemaker is seen. Cardiomegaly is noted. The aortic arch is calcified. There is prominence and cephalization of the vasculature with Meaghan B lines seen. Faint bilateral airspace opacities are seen. No evidence of pleural effusion or pneumothorax. IMPRESSION: Cardiomegaly and moderate pulmonary edema. Bilateral airspace opacities may represent atelectasis, pneumonia, and/or alveolar edema. ACT 112: Negative or not required by law. Electronically signed by: Christian Murray M.D. 05/24/2024 12:32 PM Hip/Pelvis X-Ray 05/24/24 12:00 XR hip RT 2V w pelvis CLINICAL HISTORY: Fall. COMPARISON: CT of the abdomen and pelvis May 12, 2024. FINDINGS: Sacroiliac joints and symphysis pubis are intact. There is an acute displaced angulated intertrochanteric fracture of the right femur. No additional fractures are present. IMPRESSION: Acute displaced angulated intertrochanteric fracture of the right femur. ACT 112: Negative or not required by law. Electronically signed by: Otoniel Lemus M.D. 05/24/2024 12:24 PM Medications Administered Fentanyl Citrate (Fentanyl Citrate Pf 100 Mcg/2 Ml Vial) 50 mcg IV Q15M PRN PRN Reason: Pain Stop: 06/07/24 11:59 Last Admin: 05/24/24 12:42 Dose: 50 mcg Documented By: Admin: 05/24/24 12:08 Dose: 50 mcg Documented By: ANNETTA Discontinued Medications Ondansetron HCl (Ondansetron Inj 2 Mg/Ml 2 Ml Vial) 4 mg IV NOW STA Stop: 05/24/24 12:01 Last Admin: 05/24/24 12:06 Dose: 4 mg Documented By: ANNETTA Code Status & VTE Plan Code Status FULL CODE Supervising Physician Co-Signing Physician Notes 83 y/o female with recent Covid infection fell at home and has an acute displaced angulated intertrochanteric fracture of the right femur. I saw and examined the patient in the ED with Jackie Abebe PA-C. Her son is present. I spent 13 minutes in the care of this patient. I agree with the DIVYA assessment and plan. (1) Fall Encounter type: initial encounter Qualified Code(s): W19.XXXA - Unspecified fall, initial encounter (2) Fracture of right femur Encounter type: initial encounter Femur location: unspecified portion of femur Fracture morphology: unspecified fracture morphology Fracture type: closed Qualified Code(s): S72.91XA - Unspecified fracture of right femur, initial encounter for closed fracture
[2024-05-24] MEDS ORDERED: LEVALBUTEROL TARTRATE 15 GM HFA.AER.AD INH PRN (13:41)
[2024-05-24] MEDS: HYDROmorphone INJ 0.5 MG/0.5 ML SYR IV PRN (15:16)
[2024-05-24 15:31] LABS: Appearance Urine Clear (Clear); Bilirubin Urine Negative (Negative); Blood Urine Negative (Negative); Color Urine Yellow; Glucose Urine UA Negative (Negative); Ketones Urine Negative (Negative); Leukocyte Esterase Urine Negative (Negative); Nitrite Urine Negative (Negative); Protein Urine Negative (Negative); Specific Gravity Urine 1.009 (1.000-1.030); Urobilinogen Urine Negative (Negative)
[2024-05-24] MEDS ORDERED: ONDANSETRON INJ 2 MG/ML 2 ML VIAL IV PRN (15:36)
--- NOTE | 2024-05-24 15:58 | Orthopedic Consultation ---
Date of Service May 24, 2024 Assessment & Plan (1) Closed intertrochanteric fracture of right hip: Her son is with her in the ER. She was seen and examined by Dr. Stevenson. They were educated on this problem and treatment. We recommend IM nailing of the right hip/femur. Procedure explained and consent obtained. Surgery will be tomorrow with Dr. Stevenson. NPO after midnight. She can eat today from orthopedics standpoint. History of Present Illness Reason for Consultation: . Requesting Physician: . Attending Physician: DO Franck Squires Inga is a 83 year old patient admitted today to the hospitalist service with a right hip fracture. She had a recent hospitalization last week for weakness/cov id. She was discharged home. She lives with her . She fell today injuring her right hip. No pain in this hip prior to the fall. Denies other injuries at this time. Allergies Allergy/AdvReac Type Severity Reaction Status Date / Time Sulfa (Sulfonamide Allergy Severe Severe Verified 04/13/24 00:16 Antibiotics) rxn: rash and hives celecoxib Allergy Intermediate Rash/Hives/ Verified 04/13/24 00:16 Itching. cephalexin Allergy Intermediate Rash/Hives/ Verified 04/13/24 00:16 Itching. furosemide Allergy Intermediate Rash/Hives/ Verified 04/13/24 00:16 Itching. gabapentin Allergy Intermediate Rash/Hives/ Verified 04/13/24 00:16 Itching. pregabalin Allergy Intermediate Rash/Hives/ Verified 04/13/24 00:16 Itching. meclizine Allergy Unknown Unknown Verified 04/13/24 00:16 methylprednisolone Allergy Unknown Rash/Hives/ Verified 04/13/24 00:16 Itching. Penicillins Allergy Unknown Unknown. Verified 04/13/24 00:16 prednisone Allergy Unknown Rash/Hives/ Verified 04/13/24 00:16 Itching. vancomycin Allergy Unknown Jodi Verified 04/13/24 00:16 syn. . nickel Allergy Unknown Verified 04/13/24 00:16 dexamethasone AdvReac Intermediate Steroid Verified 04/13/24 00:16 psychosis. Home Medications Medication Instructions Recorded Confirmed Type montelukast 10 mg tablet 10 mg PO PM 04/08/19 05/24/24 History atorvastatin 20 mg tablet 20 mg PO QAM 11/26/21 05/24/24 History cholecalciferol (vitamin D3) 50 100 mcg PO QAM 11/26/21 05/24/24 History mcg (2,000 unit) capsule (Vitamin D3) levalbuterol tartrate 45 1 puff inhalation Q4H PRN 08/07/22 05/24/24 History mcg/actuation aerosol inhaler Shortness Of Breath (Xopenex HFA) sertraline 100 mg tablet 150 mg PO QAM 08/07/22 05/24/24 History tiotropium 2.5 mcg-olodaterol 2.5 2 puff inhalation QAM 11/07/22 05/24/24 History mcg/actuation mist for inhalation (Stiolto Respimat) torsemide 10 mg tablet 20 mg PO QAM 11/07/22 05/24/24 History ipratropium bromide 21 mcg (0.03 2 spray intranasal DAILY PRN 12/06/22 05/24/24 History %) nasal spray rhinorrhea pantoprazole 40 mg tablet,delayed 40 mg PO BID #60 tabs 12/09/22 05/24/24 Rx release allopurinol 300 mg tablet 300 mg PO HS 08/14/23 05/24/24 History metoprolol succinate 25 mg 25 mg PO BID #60 tabs 10/22/23 05/24/24 Rx tablet,extended release 24 hr diphenoxylate-atropine 2.5 1 tab PO BID PRN Diarrhea 03/07/24 05/24/24 History mg-0.025 mg tablet levothyroxine 175 mcg tablet 175 mcg PO DAILYBB 03/21/24 05/24/24 History fentanyl 12 mcg/hr transdermal 12 mcg transdermal Q3D 03/23/24 05/24/24 History patch aspirin 81 mg tablet,delayed 81 mg PO QAM #30 tabs 03/25/24 05/24/24 Rx release oxycodone 5 mg tablet 5 mg PO QID PRN pain severe #35 03/25/24 05/24/24 Rx tabs acetaminophen 500 mg tablet 1,000 mg PO Q6H PRN Pain 04/13/24 05/24/24 History (Tylenol Extra Strength) benzonatate 100 mg capsule 100 mg PO Q6H PRN cough #20 caps 04/15/24 05/24/24 Rx guaifenesin 600 mg tablet, 600 mg PO Q12 PRN cough #20 tabs 04/15/24 05/24/24 Rx extended release 12 hr (Mucinex) buspirone 5 mg tablet 5 mg PO AMHS 05/13/24 05/24/24 History ondansetron HCl 4 mg tablet 4 mg PO UD PRN Nausea And Vomiting 05/13/24 05/24/24 History Past Med/Surg History Problem List Fall (Acute) Closed intertrochanteric fracture of right hip (Acute) Fracture of right femur Transaminitis Acute dehydration (Acute) TIFFANY (acute kidney injury) (Acute) Vomiting (Acute) Weakness (Acute) 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 difficile diarrhea (Acute) Adult failure to thrive (Acute) Generalized weakness (Acute) S/P mitral valve clip implantation Presence of Watchman left atrial appendage closure device CAD (coronary artery disease) Cardiac pacemaker in situ (Acute) CKD (chronic kidney disease) (Acute) Anemia (Acute) TIA (transient ischemic attack) (Acute) Depression Hypothyroidism RADHA (obstructive sleep apnea) SSS (sick sinus syndrome) Chronic diastolic (congestive) heart failure CKD (chronic kidney disease), stage III TIA (transient ischemic attack) Anemia (Acute) Leukocytosis (Acute) Chronic anticoagulation (Acute) Acute renal insufficiency Severe mitral insufficiency Acute on chronic diastolic heart failure Paroxysmal atrial fibrillation Stroke-like symptoms (Acute) Acute on chronic anemia COVID-19 (Acute) COVID-19 (Acute) History of tobacco abuse Asthma, moderate persistent (Chronic) Meniere disease (Chronic) Atrial fibrillation and flutter (Chronic) History of laminectomy (Chronic) H/O sinus surgery (Chronic) Hx of neck surgery (Chronic) History of repair of left rotator cuff (Chronic) Medical History Generalized weakness Pericardial effusion Low back pain Angio-edema Nausea Leukocytosis Near syncope Hypotension Dehydration TIFFANY (acute kidney injury) Near syncope Elevated brain natriuretic peptide (BNP) level Pneumonia Atrial flutter Carotid artery aneurysm Prolonged QT interval Atrial fibrillation with RVR DM type 2 (diabetes mellitus, type 2) Encounter for pre-operative examination Cholelithiasis Cholecystitis Chest pain at rest Pulmonary emphysema Osteoarthritis of right knee HTN (hypertension) Surgical History History of hysterectomy History of cholecystectomy Family History Father Diabetes Social History Smoking Status: Never smoker Tobacco Type: Cigarettes packs per day: 1.5; Cigarettes Per Day: 30; Second Hand Exposure: No; Do You Dip or Chew Tobacco: No; Hx Alcohol Use: No Hx Substance Use: No Preferred Language: Namibian Communication Ability: Effective Civil Engineering Director Required: No Beliefs That Will Affect Care: None marital status: Current Living Situation: Spouse Feels Safe at Home: Yes Assistive Devices: Oxygen - at Night Review of Systems All systems reviewed & are unremarkable except as noted in HPI & below. Physical Exam . alert and oriented. NAD. Right leg: shortened and externally rotated. Able to move toes, dorsiflex/plantarflex. NVI Results & Data Results & Data Laboratory Results . Diagnostic Findings . xrays of the pelvis and right hip shows a displaced right intertroch fx. PG Care Time/CCT Total # of Minutes Spent Total Time Spent with Patient: Total time spent is greater than 50% in coordination of care (as documented) at patient's floor/unit and/or counseling patient: Coding Level of Care Code 87833 IN/OBS CONSULT LVL 4,60M (57 - DECISION FOR SURGERY) Diagnoses Closed intertrochanteric fracture of right hip S72.141A
--- NOTE | 2024-05-24 16:52 | Electrocardiogram Report ---
Test Reason : Blood Pressure : */* mmHG Vent. Rate : 90 BPM Atrial Rate : 249 BPM P-R Int : * ms QRS Dur : 74 ms QT Int : 328 ms P-R-T Axes : 80 10 193 degrees QTcB Int : 401 ms Atrial flutter with variable A-V block Abnormal ECG When compared with ECG of 13-May-2024 16:25, Atrial flutter has replaced Sinus rhythm ST now depressed in Anterior leads Confirmed by Elmer Dahl ([id number]) on 05/24/2024 4:52:25 PM Referred By: REFERRED SELF Confirmed By: Elmer Dahl
--- OUTSIDE RECORDS SUMMARY | 2024-05-24 18:32 | External Medical Summary | Summary of Care ---
Author Name Unknown Organization [facility] Address [address] [place] [address] Phone [phone] Care Team Providers Care Sports Book Board Attendant Name Role Phone Florentin Calvo DO Primary Care Provider [phone] Reason for Visit * Reason Onset Date Comments Follow Up Hospital Follow-Up 05/21/2024 Encounter Details Date Type Department Care Team (Late st Contact Info) Description 05/21/2024 2:20 PM EDT Office Visit Family Practice [address] [place] [address] [address] [place] [address] Florentin Calvo DO [address] [place] [address] TIFFANY (acute kidney injury) (FORMERLY [facility]; Volume depletion; Paroxysmal atrial fibrillation (HCC); PVD (peripheral vascular disease) (HCC); Type 2 diabetes mellitus with stage 3b chronic kidney disease, without long-term current use of insulin (HCC); Chronic diastolic CHF (congestive heart failure) (HCC); Acquired hypothyroidism; 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 claudication; Closed wedge compression fracture of T12 vertebra, sequela; Current moderate episode of major depressive disorder without prior episode (HCC); Moderate persistent asthma without complication; Atherosclerosis of cher-ae heights coronary artery 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 [...] as of this encounter (statuses as of 05/21/2024) Medications Medication Sig Dispensed Refills Start Date [...] DIRECTED 100 Tablet 3 03/31/2023 Active Ipratropium Rosebud 0.03 % Nasal Solution (Atrovent)Indicatio ns:Chronic rhinitis Administer 2 Sprays into nostril in the morning and 2 Sprays before bedtime. 90 mL 3 04/01/2023 Active Allopurinol 300 MG Oral Tablet (Zyloprim) Take 1 Tablet by mouth at bedtime. 90 Tablet 3 05/16/2023 Active Tiotropium Rosebud-Olodaterol 2.5-2.5 MCG/ACT Inhalation Aerosol Solution (Stiolto Respimat) [...] s:Chronic diastolic CHF (congestive heart failure) ([facility]) Take 2 Tablets by mouth in the morning. 200 Tablet 3 02/24/2024 Active Naloxone HCl 4 MG/0.1ML NA LIQD FOR CAREGIVERIndication s:Compression fracture of T12 vertebra, initial encounter ([facility]) Administer 1 spray into 1 nostril for suspected opioid overdose. Seek immediate medical attention. [email or web address] 1 Each 3 03/16/2024 5 Active Levothyroxine Sodium 175 MCG Oral Tablet (Levoxyl)Indication s:Acquired hypothyroidism Take 1 Tablet by mouth daily first thing in the morning. 90 Tablet 3 03/17/2024 Active Aspirin 81 MG Oral Tablet Delayed Release Take 1 Tablet by mouth in the morning. Active oxyCODONE HCl 5 MG Oral Tablet (Oxy IR)Indications:[facility] ed fracture of multiple ribs of left side with routine healing, subsequent encounter Take 1 Tablet by mouth every 6 hours as needed for Pain, Breakthrough. 03/30/2024 Active fentaNYL 12 MCG/HR Transdermal Patch 72 HourIndications:Com pression fracture of T12 vertebra, initial encounter ([facility]) Place 1 Patch over 72 hours topically on the skin every 3 days. For pain control. 10 Patch 04/19/2024 Active busPIRone HCl 5 MG Oral Tablet (Buspar) Take 1 Tablet by mouth in the morning and 1 Tablet before bedtime. 60 Tablet 3 04/21/2024 Active Ondansetron HCl 4 MG Oral TabletIndications:N ausea and vomiting, unspecified vomiting type Take 1 Tablet by mouth every 8 hours as needed for Nausea. 30 Tablet 05/13/2024 Active Doxycycline Hyclate 100 MG Oral CapsuleIndications: Cellulitis of right toe Take 1 Capsule by mouth in the morning and 1 Capsule before bedtime. Take for 7 days. 14 Capsule 05/05/2024 4 Discontinue d(Medicatio n List Clean Up) documented as of this encounter (statuses as of 05/21/2024) Active Problems Problem Noted Date Diagnosed Date Memory loss 05/05/2024 Closed wedge compression fracture of T12 vertebr a 03/12/2024 Last Assessment & Plan: Increased oxy from 2.5mg to 5mg [id number] prn Ortho spine ref, ?kyphoplasty Constipation 03/12/2024 [...] Plan: -Recent admission to [facility], presented with numbness of tongue and slurred [...] Obstructive sleep apnea of adult 09/09/2014 Overview: OTORHINOLARYNGOLOGIST Last Assessment & Plan: Now just using [...] as of this encounter (statuses as of 05/21/2024) Resolved Problems Problem Noted Date Diagnosed Date [...] as of this encounter (statuses as of 05/21/2024) Immunizations Name Administration Dates Next Due COVID-19 mRNA, LNP-s, No Pre serve, 2-Dose Series (Moderna) 06/23/2021,10/25/2020,09/28/2020 COVID-19, LNP-s, No Preserve , Larry-sucrose, Ages 12+ (Pfizer) 04/09/2022 COVID-19, MRNA-LNP, 23-24, P F, 30 MCG/0.3 mL, 12 YRS AND ABOVE, IM ([facility]) 06/09/2023 Covid-19, Mrna, Lnp-s, Pf, B ivalent, 30 Mcg, IM, 12 yrs and above (Pfizer) 09/10/2022 HEP A - Hepatitis A (Adult > 18 yrs) 03/15/2004, 07/29/2003 Pneumococcal Conjugate Vacc, 13 Valent (Prevnar) 09/21/2015 Pneumococcal Conjugate Vacci ne, 20-valent ([id number]) 05/05/2024 Pneumococcal Polysaccharide PPV23 (Pneumovax) 05/25/2012,07/25/2007 RSV [...] Sign Reading Time Taken Comments Blood Pressure 90/56 05/21/2024 2:08 PM EDT Pulse 84 05/21/2024 2:08 PM EDT Temperature 36.3 C (97.4 F) 05/21/2024 2:08 PM ED T Respiratory Rate 18 05/21/2024 2:08 PM EDT Oxygen Saturation - - Inhaled Oxygen Concentration - - Weight 70.2 kg (154 lb 11.2 oz) 05/21/2024 2:08 PM EDT Height 165.1 cm (5' 5") 05/21/2024 2:08 PM EDT Body Mass Index 25.74 05/21/2024 2:08 PM EDT documented in this encounter Functional Status Functional Status Response Date of Assess ment Are you deaf or do you have serious difficulty hearing? No-[place]A [place] can hear w/ hearing aid 03/07/2023 Are [...] encounter Progress Notes * Florentin Calvo, - 05/21/2024 2:28 PM EDT SUBJECTIVE: Inga Barakat is a 83 year old female. Chief Complaint Patient presents with Follow Up Hospital Follow-Up Recent Admission: Patient was recently admitted to [facility]. The date of discharge was 05/18/2024.Discharge report received and reviewed. 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 The patient was admitted to [facility] 05/13/2024- 05/18/2024 to treat TIFFANY. The patient had recent COVID infection and had decreased oral intake causing volume depletion. Patient improved with IV hydration and is feeling better. CHronic back pain is still present form T-12 vertebral fracture. Chronic shortness of breath is unchanged. No chest pain. The patient was brought to the visit [...] of TIA (transient ischemic attack) Atherosclerosis of cher-ae heights coronary artery without angina pectoris S/P mitral [...] MOUTH EVERY DAY DIRECTED 100Tablet 3 Ipratropium Rosebud 0.03 % Nasal Solution (Atrovent) Administer 2 Sprays into nostril in the morning and 2 Sprays before bedtime. 90 mL 3 Allopurinol 300 MG Oral Tablet (Zyloprim) Take 1 Tablet by mouth at bedtime. 90 Tablet 3 Tiotropium Rosebud-Olodaterol 2.5-2.5 MCG/ACT Inhalation Aerosol Solution (Stiolto Respimat) [...] 1 Tablet before bedtime. 60 Tablet 3 Ondansetron HCl 4 MG Oral Tablet Take 1 Tablet by mouth every 8 hours as needed for Nausea. 30 Tablet 0 Etubicsuch Verio w/Device Kit Use up to 1 times a day. E11.9 1 Kit 0 VirtustreamTouch Verio In Vitro Strip (Glucose Blood) Test blood sugars up to 2 times a day E11.9 200 Strip3 Naloxone HCl 4 MG/0.1ML NA LIQD FOR CAREGIVER Administer 1 spray into 1 nostril for suspected opioid overdose. Seek immediate medical attention. [email or web address] 1 Each 3 No current facility-administered medications [...] Azithromycin Other (Please comment) QTC prolongation at [facility] Nickel Swelling Other reaction(s): Unknown OBJECTIVE: BP 90/56 | Pulse 84 | Temp 36.3 C (97.4 F) | Resp 18 | Ht 1.651 m (5' 5") | Wt 70.2 kg (154 lb 11.2 oz) | BMI 25.74 kg/m | BSA 1.79 m REVIEW OF SYSTEMS: Review of Systems Constitutional: Positive for appetite change and fatigue. Negative for chills and fever. HENT: Negative for congestion, sore throat and trouble swallowing. Respiratory: Positive for shortness of breath. Negative for cough and wheezing. Cardiovascular: Negative for chest pain, palpitations and leg swelling. Gastrointestinal: Positive for diarrhea. Negative for abdominal pain, blood in stool, constipation,nausea and vomiting. Genitourinary: Negative for dysuria, frequency and hematuria. Musculoskeletal: Positive for arthralgias, back pain, gait problem (usew walker at all times) and neck pain. Neurological: Positive for tremors. Negative for dizziness, syncope, weakness and headaches. Psychiatric/Behavioral: Negative for confusion, decreased concentration and sleep disturbance. PHYSICAL EXAM: BP 90/56 | Pulse 84 | Temp 36.3 C (97.4 F) | Resp 18 | Ht 1.651 m (5' 5") | Wt 70.2 kg (154 lb 11.2 oz) | BMI 25.74 kg/m | BSA 1.79 m Physical Exam Vitals and nursing note [...] rales. Abdominal: General: Bowel sounds are normal. Palpations: Abdomen is soft. Musculoskeletal: Right lower leg: No edema. Left lower leg: No edema. Neurological: Mental Status: She is alert and oriented to person, place, and time. Mental status is at baseline. Motor: No weakness. Gait: Gait abnormal. Psychiatric: Mood and Affect: Mood normal. Behavior: Behavior normal. Thought Content: Thought content normal. ASSESSMENT/PLAN: TIFFANY (acute kidney injury) ([facility]) (Primary) - COMPREHENSIVE METABOLIC PANEL; Future; Expected date: 05/21/2024 - CBC WITH WBC DIFFERENTIAL; Future; Expected date: 05/21/2024 - MAGNESIUM; Future; Expected date: 05/21/2024 - PHOSPHORUS; Future; Expected date: 05/21/2024 - COMPREHENSIVE METABOLIC PANEL - CBC WITH WBC DIFFERENTIAL - MAGNESIUM - PHOSPHORUS Resolved Volume depletion - COMPREHENSIVE METABOLIC PANEL; Future; Expected date: 05/21/2024 - CBC WITH WBC DIFFERENTIAL; Future; Expected date: 05/21/2024 - MAGNESIUM; Future; Expected date: 05/21/2024 - PHOSPHORUS; Future; Expected date: 05/21/2024 - COMPREHENSIVE METABOLIC PANEL - CBC WITH WBC DIFFERENTIAL - MAGNESIUM - PHOSPHORUS Resolved Paroxysmal atrial fibrillation ([facility]) - COMPREHENSIVE METABOLIC PANEL; Future; Expected date: 05/21/2024 - COMPREHENSIVE METABOLIC PANEL Continue Metoprolol ER and ASA S/P Watchman PVD (peripheral vascular disease) ([facility]) Continue ASA Type 2 diabetes mellitus with stage 3b chronic kidney disease, without long-term current use of insulin ([facility]) Diet controlled DM Continue Metoprolol ER Chronic diastolic CHF (congestive heart failure) ([facility]) Continue Torsemide Acquired hypothyroidism Continue Levothyroxine 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 claudication Continue Duragesic Patch Closed wedge compression fracture of T12 vertebra, sequela Continue Duragesic Patch Current moderate episode of major depressive disorder without prior episode ([facility]) Continue Sertraline Moderate persistent asthma without complication Continue Montelukast, tiotropium, and Levalbuterol Atherosclerosis of cher-ae heights coronary artery of cher-ae heights heart without angina pectoris Continue ASA, and Metoprolol ER S/P mitral valve clip implantation Presence of Watchman left atrial appendage closure device Nocturnal hypoxemia Continue nocturnal oxygen Gastro-esophageal reflux disease without esophagitis Continue Pantoprazole Pure hypercholesterolemia Continue Atorvastatin Cardiac pacemaker in situ Hospital discharge follow-up - DISCH MED RECON CUR MED LIS Follow Up: Return in about 12 days (around 06/02/2024), or if symptoms worsen or fail to improve. I spent a total of 40-54 minutes (exact time 42 mins) minutes on the date of service in preparation, delivery, and documentation of the care provided to Inga Barakat excluding any time spent in performance of separately billed services. Florentin Calvo DO documented in this encounter Nursing Notes * Hilda Awad LPN - 05/21/2024 2:08 PM EDT Here for follow up, states she feels wonderful. documented in this encounter Plan of Treatment Upcoming Encounters Date Type Department Care Team (Late st Contact Info) Description 05/31/2024 8:40 AM EDT Office Visit Neurology [facility] [address] [facility] [place] [address] Carmenza Colon PA-C 200 [facility] [place] [address] 06/02/2024 9:30 AM EDT Office Visit Cardiology, [facility] 132 [facility] [place] [address] Abigail Goncalves PA-C 132 [facility] [place] [address] 06/02/2024 3:20 PM EDT Office Visit Family Practice [address] [place] [address] [facility] [phone] Fl[facility]in [facility] [address] 06/03/2024 2:15 PM EDT Office Visit Ophthalmology, [facility] [address] [facility] [place] [address] Wilbur Benavides, DO [address] [facility] [place] [address] 06/09/2024 8:50 AM EDT Office Visit Vascular Surgery, [facility] [address] [facility] [place] [address] Aj Sahni MD [address] [place] [address] 06/24/2024 2:30 PM EDT [facility] [address] [facility] [place] [address] Nikolay Wu, AISHA 132 [facility] [place] [address] 07/01/2024 2:30 PM EST Office Visit Gastroenterology, [facility] [place] [address] Lacy Ronquillo CRNP 132 [facility] [place] [address] 07/09/2024 1:00 PM EST Office Visit Nephrology, [facility] 200 [place] [address] ZemaitisMichelle PA-C 200 [place] [place] [address] 07/27/2024 1:00 PM EST Office Visit Family Practice [address] [facility] 293 [place] [phone] Florentin Calvo, 293 [place] [address] 08/09/2024 1:00 PM EST Nurse Only Family Practice [address] [facility] 293 [place] [phone] Hilda Elizabeth AISHA [address] [place] [address] 11/01/2024 12:00 PM EDT Office Visit Hematology/Oncology [facility] [place] [address] [place], [place] [phone] Nereyda Metz CRNP [address] [place] [phone] Pending Results Name Type Priority Associated Diagnoses Date /Time COMPREHENSIVE METABOLIC PANEL Lab Routine TIFFANY (acute kidney injury) (HCC) Volume depletion Paroxysmal atrial fibrillation (HCC) 05/21/2024 2:53 PM EDT CBC WITH WBC DIFFERENTIAL Lab Routine TIFFANY (acute kidney injury) (HCC) Volume depletion 05/21/2024 2:53 PM EDT MAGNESIUM Lab Routine TIFFANY (acute kidney injury) (HCC) Volume depletion 05/21/2024 2:53 PM EDT PHOSPHORUS Lab Routine TIFFANY (acute kidney injury) (HCC) Volume depletion 05/21/2024 2:53 PM EDT CBC Lab Routine TIFFANY (acute kidney injury) (HCC) Volume depletion 05/21/2024 2:53 PM EDT DIFFERENTIAL, AUTOMATED Lab Routine TIFFANY (acute kidney injury) (HCC) Volume depletion 05/21/2024 2:53 PM EDT Scheduled Orders Name Type Priority Associated Diagnoses Orde r Schedule COMPREHENSIVE METABOLIC PANEL Lab Routine TIFFANY (acute kidney injury) (HCC) Volume depletion Paroxysmal atrial fibrillation (HCC) Expected: 05/21/2024 (Approximate), Expires: 05/21/2025 CBC WITH WBC DIFFERENTIAL Lab Routine TIFFANY (acute kidney injury) (HCC) Volume depletion Expected: 05/21/2024 (Approximate), Expires: 05/21/2025 MAGNESIUM Lab Routine TIFFANY (acute kidney injury) (HCC) Volume depletion Expected: 05/21/2024 (Approximate), Expires: 05/21/2025 PHOSPHORUS Lab Routine TIFFANY (acute kidney injury) (HCC) Volume depletion Expected: 05/21/2024 (Approximate), Expires: 05/21/2025 Health Maintenance Due Date Last Done Comments Alpha-1 Antitrypsin 1958 Adult Wellness Visit 10/01/2023 10/01/2022, 04/27/20 Diabetic Eye Exam 05/22/2024 05/22/2023, , 05/22/2023, Additional history exists O2 ASSESSMENT COMPLETED IN PAST YEAR FOR COPD 07/31/2024 07/31/2023 Diabetic Foot Exam 09/15/2024 09/15/2023, 0 10/01/2022, 10/26/2021, Additional history exists Depression Monitoring 09/29/2024 09/29/2023 HbA1c 10/25/2024 04/27/2024, 041 12/2023, 2023, Additional history exists GFR 11/10/2024 05/13/2024, 090 10/2023, 03/30/2024, Additional history exists Albumin/Creatinine Ratio 12/08/2024 024, 02/21/2023, 05/01/2022, Additional history exists CKD PHOS USE SMARTSET 98733 04/27/2025 09/0 10/2023, 08/19/2023, 05/01/2022, Additional history exists TSH 04/27/2025 04/27/2024, 02/23, 03/15/2024, Additional history exists DXA Scan 05/07/2025 05/07/2021, 12/24, 04/12/2013, Additional history exists CKD HGB USE SMARTSET 70008 05/13/202505/13, 05/13/2024, 05/01/2024, Additional history exists Colonoscopy 03/11/2026 03/11/2022, 02/22, 11/10/2020, Additional history exists DTap/Tdap Vaccines (3 - Td or Tdap) 12/29/2028 12/29/2018, 07/15/2009 Zoster Vaccines Completed 07/16/2019, 04/26, 03/25/2007 COVID-19 Vaccine Discontinued 06/09/2023, , 09/10/2022, Additional history exists Influenza Vaccine (FLU shot) [...] Serial / Lot Cath Thermodilution 6fr - [id number] Implanted:Qty: 1 on 01/24/2023 by Wilbur Rivera MD at [facility] [employer] [id number] 10/15/2024 [id number] / / [id number] Clip Delivery Sytem G4 Xt - [id number] Implanted:Qty: 1 on 03/10/2023 at [facility] [employer] [id number] 04/15/2023 [id number] / / [id number] Clip Delivery Sytem G4 Xtw - [id number] Implanted:Qty: 1 on 03/10/2023 at [facility] [employer] [id number] 12/06/2023 [id number] / / [id number] Mirtaclip G4 - [id number] Implanted:Qty: 1 on 03/10/2023 at [facility] [employer] 11/19/2023 [id number] / / [id number] Device Watchman Flx 31mm - [id number] Implanted:Qty: 1 on 07/31/2023 by Wilbur Rivera MD at [facility] Mobile System 7 : INTRV CARD [id number] 12/02/2025 [id number] documented as of this encounter Visit Diagnoses Diagnosis TIFFANY (acute kidney injury) (HCC)- Primary Acute kidney failure, unspecified Volume depletion Volume depletion, unspecified Paroxysmal atrial fibrillation (HCC) Atrial fibrillation PVD (peripheral vascular disease) (HCC) Peripheral vascular disease, unspecified Type 2 diabetes mellitus with stage 3b chronic kidney disease, without long-term current use of insulin (HCC) Chronic diastolic CHF (congestive heart failure) (HCC) Chronic diastolic heart failure Acquired hypothyroidism Unspecified hypothyroidism 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 claudication Spinal stenosis, lumbar region, without neurogenic claudication Closed wedge compression fracture of T12 vertebra, sequela Current moderate episode of major depressive disorder without prior episode (HCC) Moderate persistent asthma without complication Unspecified asthma Atherosclerosis of cher-ae heights coronary artery of cher-ae heights heart without angina pectoris S/P mitral valve clip implantation Presence of Watchman left atrial appendage closure device Nocturnal hypoxemia Hypoxemia Gastro-esophageal reflux disease without esophagitis Esophageal reflux Pure hypercholesterolemia Cardiac pacemaker in situ Hospital discharge follow-up Other follow-up examination documented in this encounter Advance Directives Documents on File Type Date Recorded Patient Connie Cleaner Expl anation Advance Directives and Living Will 11/29/2022 ADVANCE DIRECTIVE / LIVING WILL Power of Lead Cytogenetic Technologist 11/29/2022 POWER OF A TTORNEY Advance Directives and Living Will 10/24/2014 ADVANCE DIRECTIVE / LIVING WILL Power of Lead Cytogenetic Technologist 10/24/2014 POWER OF A TTORNEY * [...] the patient have Health Care Power of Lead Cytogenetic Technologist? No * No Code Date Activated [...] Agen t (per Health Care Power of Lead Cytogenetic Technologist document) Care Teams Sports Book Board Attendant Relationship Specialty Start Date End Date Florentin Calvo DO [address] [place] [address] PCP - General Internal Medicine 02/06/24 documented as of this encounter
--- OUTSIDE RECORDS SUMMARY | 2024-05-24 18:32 | External Medical Summary ---
Author Name Unknown Address Unknown Organization K01:[facility] [address] [place] [address] Laboratory Report Ordering Provider Test Date Status ANTONIO EDMONDS 05/21/2024 14:53:11 Final Observation Date Value Abnormality Reference (Units ) Status Magnesium 05/21/2024 14:53:11 2.2 1.5-2.6 (m g/dL) Final Performing Location [facility] [address] [facility] [address]
--- OUTSIDE RECORDS SUMMARY | 2024-05-24 18:32 | External Medical Summary ---
Author Name Unknown Address Unknown Organization K01:[facility] - [address] [facility] [address] Laboratory Report Ordering Provider Test Date Status ANTONIO EDMONDS 05/21/2024 14:53:11 Final Observation Date Value Abnormality Reference (Units ) Status SYNC LEUKOCYTES IN BLOOD BY AUTOMATED COUNT 05/21/2024 14:53:11 8.85 4.00-10.80 (K/uL) Final Segs 05/21/2024 14:53:11 67.2 40.0-75.0 (%) Final Lymphs % 05/21/2024 14:53:11 12.8 Below low normal 18.0-42.0 (%) Final Monos 05/21/2024 14:53:11 7.3 1.0-11.0 (%) Final Eosinophils 05/21/2024 14:53:11 11.4 Above high normal 0.0-6.0 (%) Final Basos 05/21/2024 14:53:11 0.5 0.0-2.0 (%) Final Immature Granulocyte, Percent 05/21/2024 14:53:11 0.8 0.0-2.0 (%) Final Absolute Segs 05/21/2024 14:53:11 5.95 1.80-7.70 (K/uL) Final Lymphs, absolute 05/21/2024 14:53:11 1.13 1.00-4.80 (K/ul) Final Monos, Abs 05/21/2024 14:53:11 0.65 0.00-1.10 (K/uL) Final Eos, Abs 05/21/2024 14:53:11 1.01 Above high normal 0.00-0.70 (K/uL) Final Basos, Abs 05/21/2024 14:53:11 0.04 0.00-0.20 (K/uL) Final Immature Granulocytes, Number 05/21/2024 14:53:11 0.07 0.00-0.20 (K/uL) Final Performing Location [facility] - [facility] [address] [facility] [address]
--- OUTSIDE RECORDS SUMMARY | 2024-05-24 18:32 | External Medical Summary ---
Author Name Unknown Address Unknown Organization [id number]:[facility] [place] [facility] [address] [facility] [address] [facility] [address] Laboratory Report Ordering Provider Test Date Status ANTONIO EDMONDS 05/21/2024 14:53:11 Final Observation Date Value Abnormality Reference (Units ) Status WBC, Total 05/21/2024 14:53:11 8.85 4.00-10.80 (K/uL) Final RBC 05/21/2024 14:53:11 3.24 3.85-5.15 (M/uL) Final Hemoglobin 05/21/2024 14:53:11 9.9 Below low normal 12.0-15.3 (g/dL) Final HCT 05/21/2024 14:53:11 31.5 Below low normal 36.0-45.2 (%) Final MCV 05/21/2024 14:53:11 97.2 81.5-97.5 (fL) Final MCH 05/21/2024 14:53:11 30.6 27.0-34.0 (pg) Final MCHC 05/21/2024 14:53:11 31.4 32.0-36.0 (g/dL) Final RDW 05/21/2024 14:53:11 17.2 11.5-15.5 (%) Final Platelets 05/21/2024 14:53:11 180 140-400 (K/uL) Final MPV 05/21/2024 14:53:11 12.2 6.6-11.1 (fL) Final Nucleated erythrocytes/100 leukocytes [Ratio] in Blood by Automated count 05/21/2024 14:53:11 0 <=0 (/100 WBCs) Final Performing Location [facility] [place] [address] [facility] [address]
--- OUTSIDE RECORDS SUMMARY | 2024-05-24 18:32 | External Medical Summary ---
Author Name Unknown Address Unknown Organization [id number]:[facility] [place] [address] [facility] [address] Laboratory Report Ordering Provider Test Date Status ANTONIO EDMONDS 05/21/2024 14:53:11 Final Observation Date Value Abnormality Reference (Units ) Status BUN 05/21/2024 14:53:11 44 Above high normal 6-20 (mg/dL) Final Creatinine 05/21/2024 14:53:11 1.5 Above high normal 0.5-1.0 (mg/dL) Final Glomerular filtration rate/1.73 sq M.predicted [Volume Rate/Area] in Serum, Plasma or Blood by Creatinine-based formula (CKD-EPI) 05/21/2024 14:53:11 33 Below low normal >=60 (mL/min) Final eGFR is calculated based on the CKD-EPI 2020 equation. Sodium 05/21/2024 14:53:11 138 135-146 (m mol/L) Final Potassium 05/21/2024 14:53:11 4.9 3.5-5.1 (m mol/L) Final Cl 05/21/2024 14:53:11 104 98-107 (mm ol/L) Final CO2 05/21/2024 14:53:11 23 22-32 (mmo l/L) Final Anion gap 05/21/2024 14:53:11 11 7-15 (mmol /L) Final Glucose 05/21/2024 14:53:11 105 70-120 (mg /dL) Final Albumin 05/21/2024 14:53:11 3.2 Below low normal 3.8 -5.0 (g/dL) Final AST (Aspartate aminotransferase) 05/21/2024 14:53:11 76 Above high normal 10-35 (U/L) Final Alk Phos 05/21/2024 14:53:11 286 Above high normal 35 -130 (U/L) Final Bilirubin, Total 05/21/2024 14:53:11 0.4 <=1 .2 (mg/dL) Final Calcium 05/21/2024 14:53:11 9.0 8.4-10.2 ( mg/dL) Final Protein 05/21/2024 14:53:11 5.4 Below low normal 6.0 -8.3 (g/dL) Final ALT (Alanine aminotransferase) 05/21/2024 14:53:11 43 Above high normal 10-35 (U/L) Final Performing Location [facility] [place] [address] [facility] [address]
--- NOTE | 2024-05-24 18:33 | Communication Note ---
Date of Service: May 24, 2024 Spoke with the patient's son, Bright [POA], over the phone regarding the patient's code status. Patient wishes to be a DNR/DNI (notarized documentation with her son). Resuscitation status therefore changed to reflect her wishes in the chart.
--- OUTSIDE RECORDS SUMMARY | 2024-05-24 18:33 | External Medical Summary | Summary of Care ---
Author Name Unknown Organization [facility] Address [address] [place] [address] Phone [phone] Care Team Providers Care Canoe Builder Name Role Phone Florentin Calvo DO Primary Care Provider [phone] Reason for Visit * Reason Onset Date Comments [facility]: Maintenance 05/19/2024 Encounter Details Date Type Department Care Team (Late st Contact Info) Description 05/19/2024 1:00 PM EDT Scheduled Telephone [facility], [facility] 132 [facility] [place] [address] Coordinator, [facility] 132 [facility] [place] [address] Allergies Active Allergy Reactions Criticality Noted Date [...] as of this encounter (statuses as of 05/19/2024) Medications Medication Sig Dispensed Refills Start Date End Date Status [employer] w/Device KitIndications:Type 2 diabetes mellitus with hemoglobin [...] DIRECTED 100 Tablet 3 03/31/2023 Active Ipratropium [place] 0.03 % Nasal Solution (Atrovent)Indication s:Chronic rhinitis Administer 2 Sprays into nostril in the morning and 2 Sprays before bedtime. 90 mL 3 04/01/2023 Active Allopurinol 300 MG Oral Tablet (Zyloprim) Take 1 Tablet by mouth at bedtime. 90 Tablet 3 05/16/2023 Active Tiotropium [place]-Olodaterol 2.5-2.5 MCG/ACT Inhalation Aerosol Solution (Stiolto Respimat) [...] (toPROL XL)Indications:Parox ysmal atrial fibrillation ([facility]) Take 1 Tablet by mouth in [...] failure) ([facility]) Take 2 Tablets by mouth in the morning. 200 Tablet 3 02/24/2024 Active Naloxone HCl 4 MG/0.1ML NA LIQD FOR CAREGIVERIndications :Compression fracture of T12 vertebra, initial encounter ([facility]) Administer 1 spray into 1 nostril for suspected opioid overdose. Seek immediate medical attention. 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 Last Assessment & Plan: Now just using [...] as of this encounter (statuses as of 05/19/2024) Resolved Problems Problem Noted Date Diagnosed Date Resolved Date Paroxysmal SVT (supraventricular tachycardia) 03/09/13 2310/24/2023 Hypertensive chronic kidney disease with stage 1 [...] as of this encounter (statuses as of 05/19/2024) Immunizations Name Administration Dates Next Due COVID-19 [...] (Prevnar) 09/21/2015 Pneumococcal Conjugate Vacci ne, 20-valent ([id number]) 05/05/2024 Pneumococcal Polysaccharide PPV23 (Pneumovax) 05/25/2012,07/25/2007 RSV [...] or do you have serious difficulty hearing? No-LA JOLLA can hear w/ hearing aid 03/07/2023 Are [...] Telephone Encounter - Becky Coleman RN - 05/19/2024 1:04 PM EDT [facility] Telephonic Nurse Follow-Up Call [facility] Subprogram: Focused Care Management (3-9 months) Follow Up Call Type: 24 hour follow up Acute issue requiring follow-up call: Other: EDIS Objective: 05/06/2024 1:41 PM 05/05/2024 11:51 AM 05/04/2024 3:19 PM 04/27/2024 2:16 PM 04/17/2024 1:05 PM VITALS ACROSS ENCOUNTERS BP 122/60 106/60 107/69 118/60 102/60 Pulse 68 74 71 74 76 Weight 71 kg 71.6 kg 71.8 kg BMI 26.04 26.34 BMI 26.04 kg/m2 26.28 kg/m2 26.34 kg/m2 Remote Patient Monitoring: NONE Oxygen Needs: NO supplemental oxygen needs identified DME Needs: NO DME needs identified Medications: No medication or dose adjustments made during acute episode Subjective: Condition Status: UTC Current Concerns: Patient has RNCM HV scheduled for tomorrow. Disposition: Issue resolved. All appropriate follow up scheduled. Future Visits Scheduled: Future Appointments-next 60 days Date/Time Provider Specialty Dept Phone 05/20/2024 4:00 PM Nikolay Wu RN [facility] [phone] 05/21/2024 2:00 PM (Arrive by 1:45 PM) Miguel Angel Nurse Fam Prac 65 [facility] [phone] 05/21/2024 2:20 PM (Arrive by 2:05 PM) Florentin Calvo DO [facility] [phone] 05/31/2024 8:40 AM (Arrive by 8:25 AM) Carmenza Colon PA-C Neurology [phone] 06/02/2024 9:30 AM (Arrive by 9:15 AM) Abigail Goncalves PA-C Cardiology [phone] 06/02/2024 3:20 PM (Arrive by 3:05 PM) Florentin Calvo DO Family [facility] [phone] 06/03/2024 2:15 PM Wilbur Benavides DO Ophthalmology [phone] 06/09/2024 8:50 AM Aj Sahni MD Vascular Surgery [phone] 06/24/2024 2:30 PM Nikolay Wu RN [facility] [phone] 07/01/2024 2:30 PM (Arrive by 2:15 PM) Lacy Ronquillo CRNP Gastroenterology [phone] 07/09/2024 1:00 PM (Arrive by 12:45 PM) Michelle Ivy PA-C Nephrology [phone] 07/27/2024 1:00 PM (Arrive by 12:45 PM) Florentin Calvo DO Family [facility] [phone] 08/09/2024 1:00 PM Miguel Angel Nurse Annual Wellness Visit 65 [facility] [phone] 11/01/2024 12:00 PM (Arrive by 11:45 AM) Nereyda Metz CRNP Hematology Oncology [phone] Becky Coleman, RN documented in this encounter Plan of Treatment Upcoming Encounters Date Type Department Care Team (Late st Contact Info) Description 05/20/2024 4:00 PM EDT Home Visit [facility] 132 [place] [address] Nikolay Wu, AISHA 132 [facility] [place] [address] 05/21/2024 2:00 PM EDT Nurse Only Family Practice 65 [facility] 293 [place] [address] College, Nurse [facility] Prac [address] [address] 05/21/2024 2:20 PM EDT Office Visit Family Practice [address] [place] [address] 293 [place] [address] Florentin Calvo, 293 [place] [address] 05/31/2024 8:40 AM EDT Office Visit Neurology [facility] 200 [facility] [place] [address] Carmenza Colon PA-C 200 [facility] [place], [place] [address] 06/02/2024 9:30 AM EDT Office Visit Cardiology, [facility] 132 [facility] [place] [address] Abigail Goncalves PA-C [address] [place] [address] 06/02/2024 3:20 PM EDT Office Visit Family Practice 65 [facility] 293 [place] [address] Florentin Calvo, DO 293 [place] [address] 06/03/2024 2:15 PM EDT Office Visit Ophthalmology, [facility] 132 [facility] [place] [address] Wilbur Benavides, DO [facility] [place] [address] 06/09/2024 8:50 AM EDT Office Visit Vascular Surgery, [facility] 132 [facility] [place] [address] Aj Sahni MD [address] [place] [address] 06/24/2024 2:30 PM EDT [facility] Visit [facility], [facility] 132 [facility] [place] [address] Nikolay Wu, AISHA 132 [facility] [place] [address] 07/01/2024 2:30 PM EST Office Visit Gastroenterology, [facility] 132 [facility] [place] [address] Lacy Ronquillo CRNP 132 [facility] [place] [address] 07/09/2024 1:00 PM EST Office Visit Nephrology, [facility] 200 Jerri [place] [address] Michelle Ivy PA-C 200 [place] [address] 07/27/2024 1:00 PM EST Office Visit Family Practice [address] [place] [address] 293 [place] [address] Florentin Calvo, 293 [place] [address] 08/09/2024 1:00 PM EST Nurse Only Ancillary 65 [facility] 293 [place] [address] College, Nurse Annual Wellness Visit [address] [place] [address] 11/01/2024 12:00 PM EDT Office Visit [facility]ematology[facility] 200 [facility] [place] [address] Nereyda Metz CRNP [address] [place] [address] Scheduled Procedures Name Priority Associated Diagnoses Date/Ti [...] 2023, Additional history exists GFR 11/10/2024 05/13/2024, 09/0 10/2023, 03/30/2024, Additional history exists Albumin/Creatinine Ratio 12/08/202412/08/2 024, 02/21/2023, 05/01/2022, Additional history exists CKD PHOS USE SMARTSET 65708 04/27/2025 09/0 10/2023, 08/19/2023, 05/01/2022, Additional history exists TSH 04/27/2025 04/27/2024, 02/23, 03/15/2024, Additional history exists DXA Scan 05/07/2025 05/07/2021, 12/24, 04/12/2013, Additional history exists CKD HGB USE SMARTSET 72209 05/13/202505/13, 05/13/2024, 05/01/2024, Additional history exists Colonoscopy [...] this encounter Medical Devices Implanted Type Area Chassis Inspector Device Identifier Shelf Expiration Date Model / Serial / Lot Cath Thermodilution 6fr - [id number] Implanted:Qty: 1 on 01/24/2023 by Wilbur Rivera MD at [facility] [employer] [id number] 10/15/2024 [id number] / / [id number] Clip Delivery Sytem G4 Xt - [id number] Implanted:Qty: 1 on 03/10/2023 at [facility] [id number] 04/15/2023 [id number] / / [id number] Clip Delivery Sytem G4 Xtw - [id number] Implanted:Qty: 1 on 03/10/2023 at [facility] [id number] 12/06/2023 [id number] TW / / [id number] Mirtaclip G4 - [id number] Implanted:Qty: 1 on 03/10/2023 at [facility] 11/19/2023 [id number] / / [id number] Device Watchman Flx 31mm - [id number] Implanted:Qty: 1 on 07/31/2023 by Wilbur Rivera MD at [facility] [employer] : INTRV CARD [id number] 12/02/2025 [id number] / / [id number] documented as of this encounter Advance Directives Documents on File Type Date Recorded 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 No * No Code Date Activated Date [...] Agen t (per Health Care Power of Livestock Commission Agent document) Care Teams Canoe Builder Relationship Specialty Start Date End Date Florentin Calvo DO [address] [place] [address] PCP - General Internal Medicine 02/06/24 documented as of this encounter
--- OUTSIDE RECORDS SUMMARY | 2024-05-24 18:33 | External Medical Summary | Summary of Care ---
Author Name Unknown Organization [facility] Address [address] [place] [address] Phone [phone] Care Team Providers Care Specimen Accessioner Name Role Phone Florentin Calvo DO Primary Care Provider [phone] Encounter Details Date Type Department Care Team (Late st Contact Info) Description 05/13/2024 Population Health External Data Unspecified Department Allergies [...] as of this encounter (statuses as of 05/17/2024) Medications Medication Sig Dispensed Refills Start Date End Date Status WerckerTouch Verio w/Device KitIndications:Type 2 diabetes mellitus with hemoglobin A1c goal of less than 7.0% ([facility]) Use up to 1 times a [...] for Wheezing. 15 g 12 06/13/2022 Active WerckerTouch Fibroblast In Vitro Strip (Glucose Blood) Test blood sugars up to 2 times a day E11.9 200 Strip 3 12/20/2022 Active Atorvastatin Calcium 20 MG Oral Tablet (Lipitor)Indications :PVD (peripheral vascular disease) ([facility]),Type 2 diabetes mellitus with stage 3a chronic kidney disease and hypertension ([facility]) TAKE ONE TABLET BY MOUTH EVERY DAY DIRECTED 100 Tablet 3 03/31/2023 Active Ipratropium [place] 0.03 % Nasal Solution (Atrovent)Indication s:Chronic rhinitis Administer 2 Sprays into nostril in the morning and 2 Sprays before bedtime. 90 mL 3 04/01/2023 Active Allopurinol 300 MG Oral Tablet (Zyloprim) Take 1 Tablet by mouth at bedtime. 90 Tablet 3 05/16/2023 Active Tiotropium [place]-Olodaterol 2.5-2.5 MCG/ACT Inhalation Aerosol Solution (Stiolto Respimat) [...] diastolic CHF (congestive heart failure) ([facility]) Take 2 Tablets by mouth in the morning. 200 Tablet 3 02/24/2024 Active Naloxone HCl 4 MG/0.1ML NA LIQD FOR CAREGIVERIndications :Compression fracture of T12 vertebra, initial encounter ([facility]) Administer 1 spray into 1 nostril for suspected opioid overdose. Seek immediate medical attention. [email or web address] 1 Each 3 03/16/2024 03/16/2025 Active Levothyroxine [...] of T12 vertebra, initial encounter ([facility]) Place 1 Patch over 72 hours [...] as of this encounter (statuses as of 05/17/2024) Active Problems Problem Noted Date Diagnosed Date Memory loss 05/05/2024 Closed wedge compression fracture of T12 vertebr a 03/12/2024 Last Assessment & Plan: Increased oxy from 2.5mg to 5mg [id number] prn Ortho spine ref, ?kyphoplasty Constipation 03/12/2024 [...] mitral valve clip implantation 03/06/2023 Atherosclerosis of 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 02/13/2023 [...] Obstructive sleep apnea of adult 09/09/2014 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 Last Assessment & Plan: Now just [...] as of this encounter (statuses as of 05/17/2024) Resolved Problems Problem Noted Date Diagnosed Date [...] as of this encounter (statuses as of 05/17/2024) Immunizations Name Administration Dates Next Due COVID-19 mRNA, LNP-s, No Pre serve, 2-Dose Series (Moderna) 06/23/2021,10/25/2020,09/28/2020 COVID-19, LNP-s, No Preserve , Larry-sucrose, Ages 12+ (Pfizer) 04/09/2022 COVID-19, MRNA-LNP, 23-24, P F, 30 MCG/0.3 mL, 12 YRS AND ABOVE, IM (Swipely-Comirnaty) 06/09/2023 Covid-19, Mrna, Lnp-s, Pf, B ivalent, 30 Mcg, IM, 12 yrs and above (Trifacta) 09/10/2022 HEP A - Hepatitis A (Adult > 18 yrs) 03/15/2004, 07/29/2003 Pneumococcal Conjugate Vacc, 13 Valent (Prevnar) 09/21/2015 Pneumococcal Conjugate Vacci ne, 20-valent ([id number]) 05/05/2024 Pneumococcal Polysaccharide PPV23 (Pneumovax) 05/25/2012,07/25/2007 RSV [...] 05/31/2024 8:40 AM EDT Office Visit Neurology [facility] 200 [facility] [place] [place] [address] Carmenza Colon PA-C 200 [facility] [place] [address] 06/02/2024 9:30 AM EDT Office Visit Cardiology, [facility] 132 [facility] [place] [address] Abigail Goncalves PA-C 132 [facility] [place] [address] 06/02/2024 3:20 PM EDT Office Visit Family Practice [address] [place] [address] 293 [place] [address] Florentin Calvo DO 293 [facility], [place] [address] 06/03/2024 2:15 PM EDT Office Visit Ophthalmology, [facility] 132 [facility] [place] [address] Wilbur Benavides, DO 21 [place] [address] 06/09/2024 8:50 AM EDT Office Visit Vascular Surgery, [facility] 132 [facility] [place] [address] Aj Sahni MD [address] [place] [address] 06/24/2024 2:30 PM EDT Home Visit [facility], [facility] 132 [facility] [place] [address] Nikolay Wu, AISHA 132 [facility] [address] 07/01/2024 2:30 PM EST Office Visit Gastroenterology, [facility] 132 [facility] [place] [address] Lacy Ronquillo CRNP 132 [facility] [address] 07/09/2024 1:00 PM EST Office Visit Nephrology, [facility] 200 [place] [address] ZemaitisMichelle PA-C 200 [place] [address] 07/27/2024 1:00 PM EST Office Visit Family Practice 65 [facility] 293 [place] [address] Florentin Calvo, 293 [place] [address] 08/09/2024 1:00 PM EST Nurse Only Ancillary 65 [facility] 293 [place] [address] College, Nurse Annual Wellness Visit [address] [place] [address] 11/01/2024 12:00 PM EDT Office Visit Hematology/Oncology Jerri Zam[place] 200 [facility] [place], [place] [address] Nereyda Metz CRNP [address] [place] [address] Scheduled Procedures Name Priority Associated Diagnoses Date/Ti [...] Depression Monitoring 09/29/2024 09/29/2023 HbA1c 10/25/2024 04/27/2024, 04/1 12/2023, 2023, Additional history exists GFR 11/10/2024 05/13/2024, 09/0 10/2023, 03/30/2024, Additional history exists Albumin/Creatinine Ratio 12/08/2024 024, 02/21/2023, 05/01/2022, Additional history exists CKD PHOS USE SMARTSET 97092 04/27/2025 09/0 10/2023, 08/19/2023, 05/01/2022, Additional history exists TSH 04/27/2025 04/27/2024, 02/23, 03/15/2024, Additional history exists DXA Scan 05/07/2025 05/07/2021, 12/24, 04/12/2013, Additional history exists CKD HGB USE SMARTSET 58660 05/13/202505/13, 05/13/2024, 05/01/2024, Additional history exists Colonoscopy [...] this encounter Medical Devices Implanted Type Area Clinical Staff Rn Device Identifier Shelf Expiration Date Model / Serial / Lot Cath Thermodilution 6fr - [id number] Implanted:Qty: 1 on 01/24/2023 by Wilbur Rivera MD [facility] [employer] TERE [id number] 10/15/2024 [id number] / / [id number] Clip Delivery Sytem G4 Xt - [id number] Implanted:Qty: 1 on 03/10/2023 at [facility] [employer] [id number] 04/15/2023 [id number] T / / [id number] Clip Delivery Sytem G4 Xtw - [id number] Implanted:Qty: 1 on 03/10/2023 at [facility] [employer] [id number] 12/06/2023 [id number] TW / / [id number] Mirtaclip G4 - [id number] Implanted:Qty: 1 on 03/10/2023 at [facility] [employer] 11/19/2023 [id number] / / [id number] Device Watchman Flx 31mm - [id number] Implanted:Qty: 1 on 07/31/2023 by Wilbur Rivera MD at [facility] [employer] : INTRV CARD [id number] 12/02/2025 [id number] 10 / / [id number] documented as of this encounter Advance Directives Documents on File Type Date Recorded 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 No * No Code Date Activated [...] Frieda t (per Health Care Power of Social Work Case Manager document) Care Teams Specimen Accessioner Relationship Specialty Start Date End Date Florentin Calvo DO [address] [place] [address] PCP - General Internal Medicine 02/06/24 documented as of this encounter
--- OUTSIDE RECORDS SUMMARY | 2024-05-24 18:33 | External Medical Summary | Summary of Care ---
Author Name Unknown Organization [facility] Address [address] [place] [address] Phone [phone] Care Team Providers Care Cloth Tester Name Role Phone Florentin Calvo DO Primary Care Provider [phone] Encounter Details Date Type Department Care Team (Late st Contact Info) Description 05/20/2024 4:00 PM EDT Home Visit [facility] 132 [facility] [place] [address] Nikolay Wu, AISHA 132 [facility] [place] [address] Allergies Active Allergy Reactions Criticality Noted Date Comments Azithromycin Other (Please comment) 12/04/2021 QTC prolongation at [facility] Celecoxib Hives,Rash High 03/24/2013 Other reaction(s): [...] as of this encounter (statuses as of 05/20/2024) Medications Medication Sig Dispensed Refills Start Date End Date Status SAICTouch Verio w/Device KitIndications:Type 2 diabetes mellitus with [...] DIRECTED 100 Tablet 3 03/31/2023 Active Ipratropium Chilton 0.03 % Nasal Solution (Atrovent)Indication s:Chronic rhinitis Administer 2 Sprays into nostril in the morning and 2 Sprays before bedtime. 90 mL 3 04/01/2023 Active Allopurinol 300 MG Oral Tablet (Zyloprim) Take 1 Tablet by mouth at bedtime. 90 Tablet 3 05/16/2023 Active Tiotropium Chilton-Olodaterol 2.5-2.5 MCG/ACT Inhalation Aerosol Solution (Stiolto Respimat) [...] suspected opioid overdose. Seek immediate medical attention. [email or web address] 1 Each 3 03/16/2024 03/16/2025 Active Levothyroxine [...] as of this encounter (statuses as of 05/20/2024) Active Problems Problem Noted Date Diagnosed Date Memory loss 05/05/2024 Closed wedge compression fracture of T12 vertebr a 03/12/2024 Last Assessment & Plan: Increased oxy from 2.5mg to 5mg [id number] prn Ortho spine ref, ?kyphoplasty Constipation 03/12/2024 [...] mitral valve clip implantation 03/06/2023 Atherosclerosis of 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 02/13/2023 Last Assessment & Plan: Continue statin, sotalol. 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 & Plan: Now just [...] as of this encounter (statuses as of 05/20/2024) Resolved Problems Problem Noted Date Diagnosed Date [...] as of this encounter (statuses as of 05/20/2024) Immunizations Name Administration Dates Next Due COVID-19 [...] (Prevnar) 09/21/2015 Pneumococcal Conjugate Vacci ne, 20-valent ([id number]) 05/05/2024 Pneumococcal Polysaccharide PPV23 (Pneumovax) 05/25/2012,07/25/2007 RSV [...] Sign Reading Time Taken Comments Blood Pressure 104/54 05/20/2024 1:30 PM EDT Pulse 72 05/20/2024 1:30 PM EDT Temperature 35.8 C (96.4 F) 05/20/2024 1:30 PM ED T Respiratory Rate 16 05/20/2024 1:30 PM EDT Oxygen Saturation 94% 05/20/2024 1:30 PM EDT Inhaled Oxygen Concentration - - Weight - - Height - - Body Mass Index - - documented in this encounter Functional Status Functional Status Response Date of Assess ment Are you deaf or do you have serious difficulty hearing? No-[place] can hear w/ hearing aid 03/07/2023 Are [...] Progress Notes * Nikolay Wu, AISHA - 05/20/2024 1:14 PM EDT Current Concerns: Situation: Pt seen today by [facility] a/c tech for routine follow-up visit. Background: PMH includes: CHF pEF 60-65%, CAD/PVD, Afib on Eliquis, post-Watchman device, Mitral valve clip, HTN, COPD, Anermia, GERD Assessment: Pt went to [facility] at the direction of her doctor on 05/13 for nausea, vomiting, diarrhea, generalizedweakness x3 days and elevated Creatinine and and LFTs Pt diagnosed with COVID-19 during hospital course Pt was discharged home on 05/18 Per pt report her daughter went back home to [place] and is to return to stay with pt again on May 29 Pt reports son spends a lot of time in the home with pt and Son is currently managing medications per pt Pt did finish Doxycycline course for cellulitis to R great toe Denies any toe pain, issues today Fracture to T12 from previous fall in 04/17 Pt rates back pain 4/10 at time of visit States standing and doing housework aggravates pain to 9/10 Pt continues to have bilateral knee pain from previous fall on 04/29 Pt rates bilateral knee pain as a 3/10 at time of visit Pt pain is managed with Tylenol and Oxycodone Pt son reports pt takes 1/2 half Oxycodone HS and takes Tylenol each AM Aside from that pt is using only Tylenol throughout day for breakthrough pain Pt reports COVID-19 symptoms were nausea, vomiting, diarrhea Pt denies sore throat, cough Currently pt reports indigestion with occasional upbringing of acid Does take Pantoprazole daily Pt denies N/V at this time Pt stating she is experiencing chest tightness near bra line only in front x1 day Reports sharp pain that has occurred "a few times today" Pt reports she is sitting when pain occurs and that it goes away on own Pt reports pain lasts for minute or less and then goes away Pt denies injury to area, denies that she could have intercostal pain from coughing/straining area Denies any coughing that could have caused intercostal muscle soreness [facility] Dr Doty made aware- pt is to inform PCP of this pain tomorrow Reinforced to pt to call 911 for transport to ED is CP worsens Physical Exam: Physical Exam Constitutional: Appearance: Normal appearance. HENT: Nose: Nose normal. Cardiovascular: Rate and Rhythm: Normal rate and [...] Systems: Review of Systems Constitutional: Positive for fatigue. Negative for fever. HENT: Negative for sore throat. Respiratory: Positive for chest tightness. Negative for shortness of breath. Cardiovascular: Positive for leg swelling (Trace to BLE). Gastrointestinal: Negative for nausea and vomiting. Genitourinary: Negative. Musculoskeletal: Positive for back pain and gait problem. Skin: Negative. Neurological: Negative for dizziness, syncope, weakness, light-headedness and headaches. Psychiatric/Behavioral: Negative. Care Plan Goal Progress: Patient will remain free of falls. (Not Progressing) Start: 05/20/24 Expected End: 06/24/24 Orders Placed: No orders of the defined types were placed in this encounter. Care Gaps: Care Gaps Care gaps closed this contact:: Education (05/20/241721) Type of education: Clinical/disease (05/20/241721) documented in this encounter Plan of Treatment Upcoming Encounters Date Type Department Care Team (Late st Contact Info) Description 05/21/2024 2:00 PM EDT Nurse Only Family Practice [address] [place] [address] College, Nurse Fam Prac [address] [place] [address] 05/21/2024 2:20 PM EDT Office Visit Family Practice 65 [facility] 293 [facility] [place] [address] Florentin Calvo DO 293 [facility] [place] [address] 05/31/2024 8:40 AM EDT Office Visit Neurology Jerri Zam[place] [address] [place] [address] Carmenza Colon PA-C [address] [place] [address] 06/02/2024 9:30 AM EDT Office Visit Cardiology, [facility] 132 [facility] [place] [address] Abigail Goncalves PA-C 132 [facility] [place] [address] 06/02/2024 3:20 PM EDT Office Visit Family Practice [address], [place] 293 [facility] [place] [address] Florentin Calvo, DO 293 [place] [place] [address] 06/03/2024 2:15 PM EDT Office Visit Ophthalmology, [facility] [place] [address] Wilbur Benavides, DO 21 [facility] [place] [address] 06/09/2024 8:50 AM EDT Office Visit Vascular Surgery, [facility] 132 [facility] [place] [address] Aj Sahni MD [address] [place] [address] 06/24/2024 2:30 PM EDT [facility] Visit [facility], [facility] [address] [place] [place] [address] Nikolay Wu, RN 132 [facility] [place] [address] 07/01/2024 2:30 PM EST Office Visit Gastroenterology, [facility] [address] [place] [place] [address] Lacy Ronquillo CRNP 132 [facility] [place] [address] 07/09/2024 1:00 PM EST Office Visit Nephrology, Jerri Zam[facility] 200 [facility] [place] [address] ZeMichelle chiu PA-C 200 [facility] [place], [place] [address] 07/27/2024 1:00 PM EST Office Visit Family Practice 65 [facility] [address] [place] [address] Florentin Calvo, 293 [facility] [place] [address] 08/09/2024 1:00 PM EST Nurse Only Ancillary [address] [address] College, Nurse Annual Wellness Visit [address] [address] 11/01/2024 12:00 PM EDT Office Visit Hematology/Oncology [facility] 200 [facility] [place], [place] [address] Nereyda Metz CRNP [address] [place] [address] Scheduled Procedures Name Priority Associated Diagnoses Date/Ti [...] 2023, Additional history exists GFR 11/10/2024 05/13/2024, 10/2023, 03/30/2024, Additional history exists Albumin/Creatinine Ratio 12/08/2024 024, 02/21/2023, 05/01/2022, Additional history exists CKD PHOS USE SMARTSET 22939 04/27/2025 090 10/2023, 08/19/2023, 05/01/2022, Additional history exists TSH 04/27/2025 04/27/2024, 02/23, 03/15/2024, Additional history exists DXA Scan 05/07/2025 05/07/2021, 12/24, 04/12/2013, Additional history exists CKD HGB USE SMARTSET 03578 05/13/202505/13, 05/13/2024, 05/01/2024, Additional history exists Colonoscopy [...] this encounter Medical Devices Implanted Type Area Circle Edger Device Identifier Shelf Expiration Date Model / Serial / Lot Cath Thermodilution 6fr - [id number] Implanted:Qty: 1 on 01/24/2023 by Wilbur Rivera MD at [facility] [employer] TERE [id number] 10/15/2024 [id number] / / [id number] Clip Delivery Sytem G4 Xt - [id number] Implanted:Qty: 1 on 03/10/2023 at [facility] 1-800-DENTIST [id number] 04/15/2023 [id number] / / [id number] Clip Delivery Sytem G4 Xtw - [id number] Implanted:Qty: 1 on 03/10/2023 at [facility] 1-800-DENTIST [id number] 12/06/2023 [id number] / / [id number] Mirtaclip G4 - [id number] Implanted:Qty: 1 on 03/10/2023 at [facility] 1-800-DENTIST 11/19/2023 [id number] / / [id number] Device Watchman Flx 31mm - [id number] Implanted:Qty: 1 on 07/31/2023 by Wilbur Rivera MD at [facility] [employer] : INTRV CARD [id number] 12/02/2025 [id number] / / [id number] documented as of this encounter Advance Directives Documents on File Type Date 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 No * No Code Date Activated Date [...] Healthcare Agent [facility] Communication [facility] Adult Child Health Care Agen t (per Health Care Power of Pen Maker document) Care Teams Cloth Tester Relationship Specialty Start Date End Date Florentin Calvo DO 293 [place] [place] [address] PCP - General Internal Medicine 02/06/24 documented as of this encounter
--- OUTSIDE RECORDS SUMMARY | 2024-05-24 18:33 | External Medical Summary | Summary of Care ---
Author Name Unknown Organization [facility] Address [address] [place] [address] Phone [phone] Care Team Providers Care Repair Specialist Name Role Phone Florentin Calvo DO Primary Care Provider [phone] Encounter Details Date Type Department Care Team (Late st Contact Info) Description 05/17/2024 Population Health External Data Unspecified Department Allergies [...] Dispensed Refills Start Date End Date Status SalsifyTouch Verio w/Device KitIndications:Type 2 diabetes mellitus with [...] for Wheezing. 15 g 12 06/13/2022 Active SalsifyTouch Quantason In Vitro Strip (Glucose Blood) Test blood sugars up to 2 times a day E11.9 200 Strip 3 12/20/2022 Active Atorvastatin Calcium 20 MG Oral Tablet (Lipitor)Indications :PVD (peripheral vascular disease) ([facility]),Type 2 diabetes mellitus with stage 3a chronic kidney disease and hypertension ([facility]) TAKE ONE TABLET BY MOUTH EVERY DAY DIRECTED 100 Tablet 3 03/31/2023 Active Ipratropium [place] 0.03 % Nasal Solution (Atrovent)Indication s:Chronic rhinitis Administer 2 Sprays into nostril in the morning and 2 Sprays before bedtime. 90 mL 3 04/01/2023 Active Allopurinol 300 MG Oral Tablet (Zyloprim) Take 1 Tablet by mouth at bedtime. 90 Tablet 3 05/16/2023 Active Tiotropium [place]-Olodaterol 2.5-2.5 MCG/ACT Inhalation Aerosol Solution (Stiolto Respimat) [...] suspected opioid overdose. Seek immediate medical attention. 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 IO) 09/10/2022 HEP A - Hepatitis A (Adult > 18 yrs) 03/15/2004, 07/29/2003 Pneumococcal Conjugate Vacc, 13 Valent (Prevnar) 09/21/2015 Pneumococcal Conjugate Vacci ne, 20-valent (Ginctiv92) 05/05/2024 Pneumococcal Polysaccharide PPV23 (Pneumovax) 05/25/2012,07/25/2007 RSV [...] 05/18/2024 1:20 PM EDT Office Visit Neurology [facility] 200 [facility] [place] [address] Carmenza Colon PA-C 200 [facility] [place] [address] 06/02/2024 9:30 AM EDT Office Visit Cardiology, [facility] 132 [facility] [place] [address] Abigail Goncalves PA-C 132 [facility] [place] [address] 06/02/2024 3:20 PM EDT Office Visit Family Practice [address] [place] [address] 293 [place] [address] Florentin Calvo DO 293 [facility], [place] [address] 06/03/2024 2:15 PM EDT Office Visit Ophthalmology, [facility] 132 [facility] [place] [address] Wilbur Benavides, DO 21 [place] [address] 06/09/2024 8:50 AM EDT Office Visit Vascular Surgery, [facility] 132 [facility] [place] [address] Aj Sahni MD [address] [place] [address] 06/24/2024 2:30 PM EDT [facility], [facility] 132 [facility] [place] [address] Nikolay Wu, AISHA 132 [facility] [address] 07/01/2024 2:30 PM EST Office Visit Gastroenterology, [facility] 132 [facility] [place] [address] Lacy Ronquillo CRNP 132 [facility] [address] 07/09/2024 1:00 PM EST Office Visit Nephrology, [facility] 200 [facility] [place] [address] ZemaitisMichelle PA-C 200 [facility] [place] [address] 07/27/2024 1:00 PM EST Office Visit Family Practice 65 [facility] 293 [place] [address] Florentin Calvo, 293 [place] [address] 08/09/2024 1:00 PM EST Nurse Only Ancillary 65 [facility] 293 [place] [address] College, Nurse Annual Wellness Visit [address] [place] [address] 11/01/2024 12:00 PM EDT Office Visit Hematology/Oncology Jerri Zamora [place] 200 [facility] [place], [place] [address] Nereyda Metz CRNP [address] [place] [address] Scheduled Procedures Name Priority Associated Diagnoses Date/Ti [...] Additional history exists CKD PHOS USE SMARTSET 27073 04/27/2025 09/0 10/2023, 08/19/2023, 05/01/2022, Additional history exists TSH 04/27/2025 04/27/2024, 02/23, 03/15/2024, Additional history exists DXA Scan 05/07/2025 05/07/2021, 12/24, 04/12/2013, Additional history exists CKD HGB USE SMARTSET 56674 05/13/202505/13, 05/13/2024, 05/01/2024, Additional history exists Colonoscopy [...] this encounter Medical Devices Implanted Type Area Plaster Pattern Caster Device Identifier Shelf Expiration Date Model / Serial / Lot Cath Thermodilution 6fr - [id number] Implanted:Qty: 1 on 01/24/2023 by Wilbur Rivera MD at [facility] [employer] TERE [id number] 10/15/2024 [id number] / / [id number] Clip Delivery Sytem G4 Xt - [id number] Implanted:Qty: 1 on 03/10/[address] [facility] [employer] [id number] 04/15/2023 [id number] / / [id number] Clip Delivery Sytem G4 Xtw - [id number] Implanted:Qty: 1 on 03/10/[address] [facility] [employer] [id number] 12/06/2023 [id number] / / [id number] Mirtaclip G4 - [id number] Implanted:Qty: 1 on 03/10/[address] [facility] [employer] 11/19/2023 [id number] / / [id number] Device Watchman Flx 31mm - [id number] Implanted:Qty: 1 on 07/31/2023 by iWlbur Rivera MD at 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 No * No Code Date Activated Date [...] Communication Brgiht Yuval Adult Child Health Care Frieda t (per Health Care Power of Slaughterer Religious Ritual document) Care Teams Repair Specialist Relationship Specialty Start Date End Date Florentin Calvo DO 293 [place] [address] PCP - General Internal Medicine 02/06/24 documented as of this encounter
[2024-05-24] MEDS: ACETAMINOPHEN 325 MG TAB PO PRN (19:30)
[2024-05-24] MEDS: oxyCODONE HCL IR 5 MG TAB (IMMEDIATE RELEASE) PO PRN (19:31)
[2024-05-24] MEDS: MONTELUKAST SODIUM 10 MG TABLET PO SCH (20:31)
[2024-05-24] MEDS: allopurinoL 300 MG TAB PO SCH (20:33)
[2024-05-24] MEDS: busPIRone 5 MG TAB PO SCH (20:34)
[2024-05-24] MEDS: PANTOprazole 40 MG TAB PO SCH (20:34)
[2024-05-24] MEDS: TORSEMIDE 20 MG TAB PO SCH (20:46)
[2024-05-24] MEDS: METOPROLOL SUCC 25MG EXT REL TAB PO SCH (21:02)
[2024-05-24] MEDS: MoRPHine SULFATE 2 MG/ML CARP IM PRN (21:52)
[2024-05-24] MEDS: oxyCODONE HCL IR 5 MG TAB (IMMEDIATE RELEASE) PO STA (22:34)
[2024-05-25 05:06] LABS: Hematocrit (blood only) 26.8 % (37.0-47.0); Hemoglobin 8.5 g/dl (12.0-16.0); Mean Corpuscular Hemoglobin 29.5 pg (25.0-34.0); Mean Corpuscular Hgb Conc 31.7 g/dL (32.0-36.0); Mean Corpuscular Volume 93.1 fL (80.0-100.0); Mean Platelet Volume 10.7 fL (9.4-12.4); Nucleated RBC # (auto) 0.05 K/uL (0.00-0.12); Nucleated RBC % (auto) 0.5 %; Platelet Count 165 K/uL (130-400); RDW Coefficient of Variation 17.3 % (11.5-14.5); Red Blood Count 2.88 M/uL (4.20-5.40)
[2024-05-25 05:17] LABS: BUN Creatinine Ratio 24.3 (10-20); Calcium 8.6 mg/dl (8.6-10.3); Est GFR (African American) 40.2 ml/min; Est GFR (Non-African American) 34.7 ml/min; Magnesium 1.8 mg/dl (1.7-2.4); Phosphorus 3.5 mg/dl (2.5-4.9); Potassium 4.2 mmol/L (3.5-5.1)
[2024-05-25] MEDS: UMECLIDINIUM/VILANTEROL 62.5/25MCG 7 PUFFS/INHALER INH SCH (08:08)
[2024-05-25] MEDS: TORSEMIDE 20 MG TAB PO SCH (08:09)
[2024-05-25] MEDS: SERTRALINE HCL 50 MG TABLET PO SCH (08:09)
[2024-05-25] MEDS: ATORVASTATIN 20 MG TAB PO SCH (08:09)
[2024-05-25] MEDS: ASPIRIN 81 MG ECTAB PO SCH ×2 (08:09→21:10)
[2024-05-25] MEDS: CHOLECALCIFEROL 25 MCG (1000 UNITS) TAB PO SCH (08:09)
[2024-05-25] MEDS: LEVOTHYROXINE SODIUM 175 MCG TABLET PO SCH (08:09)
--- NOTE | 2024-05-25 09:58 | Hospitalist Progress Note ---
Date of Service May 25, 2024 Assessment & Plan (1) Fracture of right femur: Plan Inga Barakat is an 83y/o F with PMHx significant for DM type II, secondary hyperparathyroidism, diabetic retinopathy, CKD stage III, hypothyroidism, polyneuropathy, PVD, HLD, RADHA on 2L of O2 via NC, moderate persistent asthma, nocturnal hypoxemia, COPD, paroxysmal atrial fibrillation s/p Watchman procedure, sick sinus syndrome s/p pacemaker placement, pulmonary hypertension, chronic diastolic CHF, left carotid artery aneurysm, aortic atherosclerosis, severe tricuspid regurgitation, s/p mitral valve clip for severe mitral regurgitation, GERD, sigmoid diverticulosis, Mnire's disease, anemia, history of TIA, history of endometrial cancer and depression who presented to the ED via EMS after sustaining a fall at home and was found to have an acute displaced angulated intertrochanteric fracture of the right femur. Right Femur Fracture S/P Fall: R hip XR shows an acute displaced angulated intertrochanteric fracture of the R femur. Pt is NPO for planned IM nailing by Dr. Stevenson today Smith cath, PT/OT evals post operatively pt has chronic diarrhea will monitor this while on narcotics Given pts complex co morbidities and her RCRI of 10.1% she is moderate-high risk for complications Acute on Chronic Diastolic CHF Severe Tricuspid Regurgitation Hx of severe mitral regurg s/p Mitral Clip On exam pt with mild nonpitting edema Her torsemide was increased 20mg BID from her home dose of 20mg daily on admission CXR with evidence of overload/edema, she did recently have covid given allergy to lasix will hold oral torsemide and give 1mg IV bumex now continue to monitor post operatively to determine if additional doses required along with daily IV dosing until stable daily weight, Strict I and O weight in ED on 05/24 reveal 76kg which is up from 68-70kg in March CKD Stage III: CR. 1.4 today Baseline Cr ~1.7-1.8 per chart review. Avoid nephrotoxic medications when able. Monitor renal function closely with AM labs. Mild Transaminitis: AST 49 and Alk Phos 230 on admission. Pt with recent LFT elevation and intermittent elevation in past - suspect possible induced by recent viral illness, also on statin RADHA, Nocturnal Hypoxia: Continue baseline 2L O2 HS. Persistent AFib S/P Watchman Procedure: SSS s/p PPM hx of LV thrombus Continue metoprolol succinate and aspirin therapy. She is rate controlled but does appear to have been in afib since February Continuous cardiac monitoring in place, metoprolol with hold parameters. She has been off eliquis since March and on ASA only Discussed with cardiology regarding her complex cardiac history in the perioperative period. Cardiology does not feel CXR significantly changed, but agrees with low dose IV diuretic appropriate, will need close monitoring of volume status perioperatively Iron Def Anemia Anemia 2/2 Chronic GI Losses follow hemoglobin closely, on ASA therapy only obtain updated iron panel in a.m. Asthma/COPD: Can continue home medications. DM Type II: Diet-controlled. A1c was 6.9% on 03/24/24. Hold off on SSI for now. BSG checks ACHS. Monitor BSG. Chronic Diarrhea son reports this has improved since being off eliquis monitor Hypothyroidism: TSh fluctuating as outpt, in February was 24 and April 0.68. Will repeat TSH/T4 in a.m., continue current dose Other Chronic Medical Conditions: HLD, gout, GERD and depression --> Can continue home medications for these specific conditions. DVT Prophylaxis: SCDs/TEDs for now pending orthopedic surgery evaluation. Code Status: DNR/DNI PCP: Florentin Calvo, Disposition: Admit to Med/Surg +Telemetry I spent a total of 82 minutes coordinating, documenting, and providing care for this patient excluding time spent in the performance of separately billed services. This included personally reviewing all current laboratories and imaging studies, medical reconciliation, outpatient chart review and discussion with specialists. This chart was completed in part utilizing Speech Voice Recognition Software. Grammatical errors, random word insertions, pronoun errors, and incomplete sentences are an occasional consequence of this system due to software limitations, ambient noise, and hardware issues. Any formal questions or concerns about the content, text, or information contained within the body of this dictation should be directly addressed to the provider for clarification. Admission and Anticipated Discharge Date Admission Date: May 24, 2024 Supervising Physician Co-Signing Physician Notes I have seen and discussed the case with the collaborating advanced practitioner. I agree with the above PN. I have reviewed and confirmed the patients medical history, the findings on physical examination, and the patients diagnosis and treatment plan with Yuliana FULTON and agree with the information documented. Discussed case with Dr. Deon beyer given no formal need for Cardiology at this time. Will need to monitor fluid status post operatively. Plan for 1mg Bumex IV today. Encourage pulm hygiene/IS s/p operation. Judicious use of IVF. Plan as above I spent a total of 20 minutes coordinating, documenting, and providing care for this patient excluding time spent in the performance of separately billed services. All of the aforementioned completed outside of collaborating with the assigned advanced practitioner for a full treatment plan. I have reviewed the advanced practitioner's documentation, and I agree with, and take responsibility for the plan of care Subjective Patient was seen in C5 as an admit. Son Bright at bedside. She c/o pain, 710 this morning. She is currently on her nocturnal 2L of oxygen and denies SOB. She denies f/c/s, chest pain, sob, n/v. She remains NPO for pending surgery today. She reports her chronic diarrhea has improved but not completely resolved. Review of Systems Review of Systems: All systems reviewed & are unremarkable except as noted in HPI & below Physical Exam Physical Exam: Gen: WD/WN, F, NAD, A&O x3 HEENT: Normocephalic, atraumatic, conjunctivae moist, sclerae anicteric, mucous membranes dry. Lung: Clear to Auscultation bilaterally, no wheezes/rales/rhonchi Heart: IRR rhythm, regular rate in 80s, 1/6 SUE, rubs, or gallops Abdomen: Soft, NT, ND +BS x 4 Extremities: No edema, RLE shortened and externally rotated, NVI distally Skin: Warm, no rash, negative turgor. Results & Data Results & Data Vital Signs (Past 12 Hours) Vital Signs Pulse Pulse Resp BP BP Pulse Ox O2 Del Method 05/25/24 08:00 92 H 22 123/68 96 Nasal Cannula 05/25/24 06:03 84 15 121/70 99 Nasal Cannula 05/25/24 05:06 84 15 109/67 98 Nasal Cannula 05/25/24 04:00 82 11 L 104/59 L 100 Nasal Cannula 05/25/24 03:44 78 16 109/66 98 Nasal Cannula 05/25/24 00:13 97 Nasal Cannula 05/25/24 00:13 90 Room Air 05/25/24 00:06 96 Room Air 05/25/24 00:00 87 20 97/54 L 92 Room Air 05/24/24 23:09 86 O2 Flow Rate 05/25/24 08:00 2 05/25/24 06:03 2 05/25/24 05:06 2 05/25/24 04:00 2 05/25/24 03:44 2 05/25/24 00:13 2 05/25/24 00:13 2 05/25/24 00:06 05/25/24 00:00 05/24/24 23:09 Laboratory Results Short CBC 05/24/24 05/25/24 Range/Units 12:04 04:32 WBC 9.99 9.40 (4.8-10.8) K/ul Hgb 9.1 L 8.5 L (12.0-16.0) g/dl Hct 27.1 L 26.8 L (37.0-47.0) % Plt Count 181 165 (130-400) K/uL BMP 05/24/24 05/25/24 12:04 04:32 Sodium 137 136 Potassium 4.1 4.2 Chloride 105 106 Carbon Dioxide 24 24 BUN 37 H 34 H Creatinine 1.39 H 1.40 H Glucose 129 H 103 H Calcium 8.9 8.6 Liver Function 05/24/24 Range/Units 12:04 Total Bilirubin 0.4 (0.2-1.0) mg/dl AST 49 H (13-39) U/L ALT 29 (7-52) U/L Alkaline Phosphatase 230 H (34-104) U/L Albumin 3.2 L (3.4-5.0) gm/dl Urine 05/24/24 Range/Units 14:24 Urine Color Yellow Urine Appearance Clear (Clear) Urine pH 5.0 (4.5-7.5) Ur Specific [place] 1.009 (1.000-1.030) Urine Protein Negative (Negative) Urine Glucose (UA) Negative (Negative) Medications Administered Current Inpatient Medications Acetaminophen (Acetaminophen 325 Mg Tab) 650 mg PO Q4H PRN PRN Reason: pain/fever Stop: 06/23/24 15:35 Last Admin: 05/24/24 19:30 Dose: 650 mg Allopurinol (Allopurinol 300 Mg Tab) 300 mg PO HS JULIO CESAR Stop: 06/23/24 20:59 Last Admin: 05/24/24 20:33 Dose: 300 mg Aspirin (Aspirin 81 Mg Ectab) 81 mg PO QAM [facility] Stop: 06/24/24 08:59 Last Admin: 05/25/24 08:09 Dose: 81 mg Atorvastatin Calcium (Atorvastatin 20 Mg Tab) 20 mg PO QAM [facility] Stop: 06/24/24 08:59 Last Admin: 05/25/24 08:09 Dose: 20 mg Buspirone HCl (Buspirone 5 Mg Tab) 5 mg PO AMHS [facility] Stop: 06/23/24 20:59 Last Admin: 05/25/24 08:09 Dose: 5 mg Hydromorphone HCl (Hydromorphone Inj 0.5 Mg/0.5 Ml Syr) 0.5 mg IV Q6H PRN PRN Reason: Severe Pain (Scale 7, 8, 9,10) Stop: 06/07/24 13:42 Last Admin: 05/25/24 08:08 Dose: 0.5 mg Levalbuterol HCl (Levalbuterol Tartrate 15 Gm Hfa.Aer.Ad) 1 puffs INH Q4H PRN PRN Reason: Shortness Of Breath Stop: 06/23/24 13:40 Levothyroxine Sodium (Levothyroxine Sodium 175 Mcg Tablet) 175 mcg PO DAILYBB [facility] Stop: 06/24/24 06:29 Last Admin: 05/25/24 08:09 Dose: 175 mcg Metoprolol Succinate (Metoprolol Succ 25mg Ext Rel Tab) 25 mg PO BID [facility] Stop: 06/23/24 20:59 Last Admin: 05/25/24 08:09 Dose: 25 mg Montelukast Sodium (Montelukast Sodium 10 Mg Tablet) 10 mg PO PM [facility] Stop: 06/23/24 20:59 Last Admin: 05/24/24 20:31 Dose: 10 mg Morphine Sulfate (Morphine Sulfate 2 Mg/Ml Carp) 1 mg IM Q6H PRN PRN Reason: Breakthrough Pain Stop: 06/07/24 13:42 Last Admin: 05/24/24 21:52 Dose: 1 mg Ondansetron HCl (Ondansetron Inj 2 Mg/Ml 2 Ml Vial) 4 mg IV Q6H PRN PRN Reason: Nausea Stop: 06/23/24 15:35 Oxycodone HCl (Oxycodone Hcl Ir 5 Mg Tab (Immediate Release)) 5 - 10 mg PO QID PRN PRN Reason: Pain Stop: 06/07/24 20:56 Pantoprazole Sodium (Pantoprazole 40 Mg Tab) 40 mg PO BID JULIO CESAR Stop: 06/23/24 20:59 Last Admin: 05/25/24 08:09 Dose: 40 mg Polyethylene Glycol (Polyethylene (Miralax) 17 Gm Pack) 17 gm PO DAILY PRN PRN Reason: Constipation Stop: 06/23/24 15:35 Sertraline HCl (Sertraline Hcl 50 Mg Tablet) 150 mg PO QAM JULIO CESAR Stop: 06/24/24 08:59 Last Admin: 05/25/24 08:09 Dose: 150 mg Torsemide (Torsemide 20 Mg Tab) 20 mg PO QAM JULIO CESAR Stop: 06/24/24 08:59 Last Admin: 05/25/24 08:09 Dose: 20 mg Torsemide (Torsemide 20 Mg Tab) 20 mg PO HS JULIO CESAR Stop: 06/23/24 20:59 Last Admin: 05/24/24 20:46 Dose: 20 mg Umeclidinium/Vilanterol (Umeclidinium/Vilanterol 62.5/25mcg 7 Puffs/Inhaler) 1 puffs INH QAM JULIO CESAR; Protocol Stop: 06/24/24 08:59 Last Admin: 05/25/24 08:08 Dose: 1 puffs Vitamin D (Cholecalciferol 25 Mcg (1000 Units) Tab) 100 mcg PO QAM JULIO CESAR Stop: 06/24/24 08:59 Last Admin: 05/25/24 08:09 Dose: 100 mcg (1) Fracture of right femur Encounter type: initial encounter Femur location: unspecified portion of femur Fracture morphology: unspecified fracture morphology Fracture type: closed Qualified Code(s): S72.91XA - Unspecified fracture of right femur, initial encounter for closed fracture
--- NOTE | 2024-05-25 11:08 | Electrocardiogram Report ---
Test Reason : Blood Pressure : */* mmHG Vent. Rate : 86 BPM Atrial Rate : 241 BPM P-R Int : * ms QRS Dur : 70 ms QT Int : 284 ms P-R-T Axes : * 37 -88 degrees QTcB Int : 339 ms Atrial flutter with variable A-V block with premature ventricular or aberrantly conducted complexes Low voltage QRS Abnormal ECG When compared with ECG of 24-May-2024 12:03, Inverted T waves have replaced nonspecific T wave abnormality in Inferior leads QT has shortened Confirmed by Elmer Dahl [id number] on 05/25/2024 11:08:42 AM Referred By: REFERRED SELF Confirmed By: Elmer Dahl
[2024-05-25] MEDS: BUMETANIDE 1 MG in SYRINGE 0 ML IV ONE (11:50)
--- NOTE | 2024-05-25 12:29 | History & Physical Bridge Note ---
Date of Service May 25, 2024 History & Physical Bridge Note I have examined the patient, reviewed the History & Physical and in the interval since the performance of the History & Physical I have noted the following changes of clinical significance: no changes noted
[2024-05-25] MEDS: oxyCODONE HCL IR 5 MG TAB (IMMEDIATE RELEASE) PO PRN (13:54)
[2024-05-25] MEDS ORDERED: LIDOCAINE 2% 2 ML VIAL/AMP(20MG/ML) INFIL ONE (14:54)
[2024-05-25] MEDS ORDERED: PROPOFOL IV EMULSION 10 MG/ML 20 ML VIAL IV ONE (14:54)
[2024-05-25] MEDS ORDERED: ROCURONIUM BROMIDE 10 MG/ML 5 ML VIAL IV ONE (14:54)
[2024-05-25] MEDS ORDERED: ONDANSETRON INJ 2 MG/ML 2 ML VIAL ONE (14:54)
[2024-05-25] MEDS ORDERED: fentaNYL citrate PF 100 MCG/2 ML VIAL ONE ×2 (15:04→16:20)
[2024-05-25] MEDS ORDERED: ATROPINE SULFATE 0.1 MG/ML 10ML SYR IV PRN (15:16)
[2024-05-25] MEDS ORDERED: HYDROmorphone INJ 1 MG/ML SYRINGE IV PRN (15:16)
[2024-05-25] MEDS ORDERED: ONDANSETRON INJ 2 MG/ML 2 ML VIAL IV PRN (15:16)
[2024-05-25] MEDS ORDERED: fentaNYL citrate PF 100 MCG/2 ML VIAL IV PRN (15:16)
[2024-05-25] MEDS ORDERED: ePHEDrine sulfate 50 MG/ML AMP IV PRN (15:16)
--- NOTE | 2024-05-25 15:22 | Anesthesiology Consultation ---
Date of Service May 25, 2024 Assessment & Plan Chart Review Chart Review: Acceptable Risk for Surgery Consults Requested none ASA ASA3 Proposed Anesthesia Anesthesia Type: General Risk / Benefits Reviewed With: PT / POA / Parent / Guardian, Accepts Plan and Informed Consent Obtained History Surgery Operation Date: 05/25/24 14:20 Proposed Procedures p Right Hip Fracture Long Trochanteric Nail - Hossein Stevenson MD Height/Weight Height: 5 ft 5 in Weight: 76 kg Allergies Allergy/AdvReac Type Severity Reaction Status Date / Time Sulfa (Sulfonamide Allergy Severe Severe Verified 04/13/24 00:16 Antibiotics) rxn: rash and hives celecoxib Allergy Intermediate Rash/Hives/ Verified 04/13/24 00:16 Itching. cephalexin Allergy Intermediate Rash/Hives/ Verified 04/13/24 00:16 Itching. furosemide Allergy Intermediate Rash/Hives/ Verified 04/13/24 00:16 Itching. gabapentin Allergy Intermediate Rash/Hives/ Verified 04/13/24 00:16 Itching. pregabalin Allergy Intermediate Rash/Hives/ Verified 04/13/24 00:16 Itching. meclizine Allergy Unknown Unknown Verified 04/13/24 00:16 methylprednisolone Allergy Unknown Rash/Hives/ Verified 04/13/24 00:16 Itching. Penicillins Allergy Unknown Unknown. Verified 04/13/24 00:16 prednisone Allergy Unknown Rash/Hives/ Verified 04/13/24 00:16 Itching. vancomycin Allergy Unknown Jodi Verified 04/13/24 00:16 syn. . nickel Allergy Unknown Verified 04/13/24 00:16 dexamethasone AdvReac Intermediate Steroid Verified 04/13/24 00:16 psychosis. Medications Home Medications Medication Instructions Recorded Confirmed Last Taken montelukast 10 mg tablet 10 mg PO PM 04/08/19 05/24/24 03/06/24 atorvastatin 20 mg tablet 20 mg PO QAM 11/26/21 05/24/24 03/06/24 cholecalciferol (vitamin D3) 50 100 mcg PO QAM 11/26/21 05/24/24 03/06/24 mcg (2,000 unit) capsule (Vitamin D3) levalbuterol tartrate 45 1 puff inhalation Q4H PRN 08/07/22 05/24/24 03/06/24 mcg/actuation aerosol inhaler Shortness Of Breath (Xopenex HFA) sertraline 100 mg tablet 150 mg PO QAM 08/07/22 05/24/24 03/06/24 tiotropium 2.5 mcg-olodaterol 2.5 2 puff inhalation QAM 11/07/22 05/24/24 03/06/24 mcg/actuation mist for inhalation (Stiolto Respimat) torsemide 10 mg tablet 20 mg PO QAM 11/07/22 05/24/24 03/06/24 ipratropium bromide 21 mcg (0.03 2 spray intranasal DAILY PRN 12/06/22 05/24/24 03/06/24 %) nasal spray rhinorrhea pantoprazole 40 mg tablet,delayed 40 mg PO BID #60 tabs 12/09/22 05/24/24 03/20/24 release allopurinol 300 mg tablet 300 mg PO HS 08/14/23 05/24/24 03/06/24 metoprolol succinate 25 mg 25 mg PO BID #60 tabs 10/22/23 05/24/24 03/06/24 tablet,extended release 24 hr diphenoxylate-atropine 2.5 1 tab PO BID PRN Diarrhea 03/07/24 05/24/24 03/19/24 mg-0.025 mg tablet levothyroxine 175 mcg tablet 175 mcg PO DAILYBB 03/21/24 05/24/24 Unknown fentanyl 12 mcg/hr transdermal 12 mcg transdermal Q3D 03/23/24 05/24/24 Unknown patch aspirin 81 mg tablet,delayed 81 mg PO QAM #30 tabs 03/25/24 05/24/24 Unknown release oxycodone 5 mg tablet 5 mg PO QID PRN pain severe #35 03/25/24 05/24/24 Unknown tabs acetaminophen 500 mg tablet 1,000 mg PO Q6H PRN Pain 04/13/24 05/24/24 Unknown (Tylenol Extra Strength) benzonatate 100 mg capsule 100 mg PO Q6H PRN cough #20 caps 04/15/24 05/24/24 Unknown guaifenesin 600 mg tablet, 600 mg PO Q12 PRN cough #20 tabs 04/15/24 05/24/24 Unknown extended release 12 hr (Mucinex) buspirone 5 mg tablet 5 mg PO AMHS 05/13/24 05/24/24 Unknown ondansetron HCl 4 mg tablet 4 mg PO UD PRN Nausea And Vomiting 05/13/24 05/24/24 Unknown Active Medications Generic Name Dose Route Start Last Admin Trade Name Freq PRN Reason Stop Dose Admin Acetaminophen 650 mg 05/24/24 15:36 05/24/24 19:30 Acetaminophen 325 Mg Tab PO 06/23/24 15:35 650 mg Q4H PRN Administration pain/fever Allopurinol 300 mg 05/24/24 21:00 05/24/24 20:33 Allopurinol 300 Mg Tab PO 06/23/24 20:59 300 mg HS JULIO CESAR Administration Aspirin 81 mg 05/25/24 09:00 05/25/24 08:09 Aspirin 81 Mg Ectab PO 06/24/24 08:59 81 mg QAM JULIO CESAR Administration Atorvastatin Calcium 20 mg 05/25/24 09:00 05/25/24 08:09 Atorvastatin 20 Mg Tab PO 06/24/24 08:59 20 mg QAM JULIO CESAR Administration Buspirone HCl 5 mg 05/24/24 21:00 05/25/24 08:09 Buspirone 5 Mg Tab PO 06/23/24 20:59 5 mg AMHS JULIO CESAR Administration Hydromorphone HCl 0.5 mg 05/24/24 13:43 05/25/24 08:08 Hydromorphone Inj 0.5 Mg/0.5 Ml Syr IV 06/07/24 13:42 0.5 mg Q6H PRN Administration Severe Pain (Scale 7, 8, 9,10) Levothyroxine Sodium 175 mcg 05/25/24 06:30 05/25/24 08:09 Levothyroxine Sodium 175 Mcg Tablet PO 06/24/24 06:29 175 mcg DAILYBB JULIO CESAR Administration Metoprolol Succinate 25 mg 05/24/24 21:00 05/25/24 08:09 Metoprolol Succ 25mg Ext Rel Tab PO 06/23/24 20:59 25 mg BID JULIO CESAR Administration Montelukast Sodium 10 mg 05/24/24 21:00 05/24/24 20:31 Montelukast Sodium 10 Mg Tablet PO 06/23/24 20:59 10 mg PM JULIO CESAR Administration Morphine Sulfate 1 mg 05/24/24 13:43 05/24/24 21:52 Morphine Sulfate 2 Mg/Ml Carp IM 06/07/24 13:42 1 mg Q6H PRN Administration Breakthrough Pain Oxycodone HCl 5 - 10 mg 05/24/24 20:57 05/25/24 13:54 Oxycodone Hcl Ir 5 Mg Tab (Immediate Release) PO 06/07/24 20:56 5 mg QID PRN Administration Pain Pantoprazole Sodium 40 mg 05/24/24 21:00 05/25/24 08:09 Pantoprazole 40 Mg Tab PO 06/23/24 20:59 40 mg BID JULIO CESAR Administration Sertraline HCl 150 mg 05/25/24 09:00 05/25/24 08:09 Sertraline Hcl 50 Mg Tablet PO 06/24/24 08:59 150 mg QAM JULIO CESAR Administration Torsemide 20 mg 05/25/24 09:00 05/25/24 08:09 Torsemide 20 Mg Tab PO 06/24/24 08:59 20 mg QAM JULIO CESAR Administration Torsemide 20 mg 05/24/24 21:00 05/24/24 20:46 Torsemide 20 Mg Tab PO 06/23/24 20:59 20 mg HS JULIO CESAR Administration Umeclidinium/Vilanterol 1 puffs 05/25/24 09:00 05/25/24 08:08 Umeclidinium/Vilanterol 62.5/25mcg 7 Puffs/Inhaler INH 06/24/24 08:59 1 puffs QAM JULIO CESAR Administration Protocol Vitamin D 100 mcg 05/25/24 09:00 05/25/24 08:09 Cholecalciferol 25 Mcg (1000 Units) Tab PO 06/24/24 08:59 100 mcg QAM JULIO CESAR Administration NPO Date Last Intake of Fluids: 05/24/24 Time Last Intake of Fluids: 18:30 Last Intake of Fluids Comment: multiple sips of water today with meds Date Last Intake of Solids: 05/24/24 Time Last Intake of Solids: 18:30 Past Medical History Medical History Generalized weakness Pericardial effusion Low back pain Angio-edema Nausea Leukocytosis Near syncope Hypotension Dehydration TIFFANY (acute kidney injury) Near syncope Elevated brain natriuretic peptide (BNP) level Pneumonia Atrial flutter Carotid artery aneurysm Prolonged QT interval Atrial fibrillation with RVR DM type 2 (diabetes mellitus, type 2) Encounter for pre-operative examination Cholelithiasis Cholecystitis Chest pain at rest Pulmonary emphysema Osteoarthritis of right knee HTN (hypertension) Exercise / Class Metabolic Activity II 4-5 Yardwork/Stairs/Walk up hill Past Family History Family History Father Diabetes Past Surgical History Surgical History History of hysterectomy History of cholecystectomy Past Anesthesia History No Hx of Anesthesia Complications History of PONV No Hx of PONV Social History Smoking Status: Never smoker tobacco type: cigarettes Smoking cigarettes per day: 30 Do You Dip or Chew Tobacco: No Hx Alcohol Use: No Hx Substance Use: No substance use type: does not use Physical Exam Vital Signs Last Vital Signs Temp 36.5 C 05/25/24 14:32 Pulse 95 H 05/25/24 14:32 Resp 22 05/25/24 14:32 BP 109/67 05/25/24 14:32 Pulse Ox 97 05/25/24 14:32 O2 Del Method Nasal Cannula 05/25/24 14:32 O2 Flow Rate 2 05/25/24 14:32 ENMT Thyromental Distance: > or= 3.5 Finger Breadths Mallampati Class: II Respiratory normal respiratory effort Auscultation: lungs clear to auscultation bilaterally Cardiovascular Rate/Rhythm: regular rate and regular rhythm Psychiatric Orientation: alert and oriented x 3 Testing Laboratory Results 05/25/24 04:32 05/25/24 04:32 PT 11.1 Seconds (9.0-12.0) 05/24/24 12:04 INR 1.0 (0.9-1.1) 05/24/24 12:04 APTT 27 Seconds (21-31) 05/24/24 12:04 Urine Color Yellow 05/24/24 14:24 Urine Appearance Clear (Clear) 05/24/24 14:24 Urine pH 5.0 (4.5-7.5) 05/24/24 14:24 Ur Specific [place] 1.009 (1.000-1.030) 05/24/24 14:24 Urine Protein Negative (Negative) 05/24/24 14:24 Urine Glucose (UA) Negative (Negative) 05/24/24 14:24 Urine Ketones Negative (Negative) 09/30/24 14:24 Urine Nitrite Negative (Negative) 05/24/24 14:24 Ur Leukocyte Esterase Negative (Negative) 05/24/24 14:24 Blood Type O Positive 05/24/24 18:06 Antibody Screen NEGATIVE 05/24/24 18:06 05/25/24 05/25/24 14:57 11:55 POC Glucose 97 105 H Echocardiogram LV Function: normal Valvular Disease: + MS s/p mitraclip now with mild MR, mod MS, Sev TR. Preserved LVEF
[2024-05-25] MEDS: ceFAZolin 2000MG 2,000 MG/15 ML SYR IV ONE (15:39)
[2024-05-25] MEDS ORDERED: diphenhydrAMINE 50 MG/ML VIAL ONE (16:19)
[2024-05-25] MEDS ORDERED: PHENYLEPHRINE 100MCG/ML 10ML SYR IV ONE (16:30)
[2024-05-25] MEDS ORDERED: ePHEDrine sulfate 50 MG/5 ML SYR ONE (16:30)
[2024-05-25] MEDS ORDERED: GLYCOPYRROLATE 0.2 MG/ML VIAL ONE (16:30)
[2024-05-25] MEDS: BUPIVACAINE/EPINEPHRINE 0.5% MPF 1:200,000 30 ML VIAL ONE (16:32)
--- NOTE | 2024-05-25 17:04 | Operative Report ---
PG Post Operative Report Pre & Post Diagnosis Operation Date: 05/25/24 14:20 Pre-Op Diagnosis: (1) Closed intertrochanteric fracture of right hip: Post-Op Diagnosis: (1) Closed intertrochanteric fracture of right hip: I identified the patient and participated in the time-out.: Yes Procedure Operation Date: 05/25/24 14:20 Actual Procedures p Right Hip Fracture Long Trochanteric Nail(Right) - Hossein Stevenson MD Surgeon Hossein Stevenson MD Rolling Attendant Edwin Leal PA-C Estimated Blood Loss 100 Findings Consistent with Post-Op Diagnosis Specimens None Anesthesia Type General Complications none Disposition Accompanied Patient To Recovery: No Indications Patient is an 83-year-old female who sustained a mechanical fall yesterday. She had acute onset of pain. She was brought to emergency room x-rays of the right intertrochanteric/subtrochanteric hip fracture. The patient is admitted by the medicine service, medically optimized indicated for surgical treatment. Description of Procedure Operative implants consist of: 1. Synthes right 360 mm x 11 mm long trochanteric nail. 2. Synthes 95 mm helical blade. 3. Synthes 5.0 mm x 42 mm distal interlocking screw. The patient was taken the op room, identified, placed on the operative table in the supine position. All contact areas were appropriately padded. IV antibiotics were by the anesthesia team. General anesthetic was open by the anesthesia team. The patient was then placed on the fracture table. The right leg was placed in boot traction the left leg was placed in a well-leg corrales. I applied some longitudinal traction to the right leg and internally rotated the foot so the knee Pointed to the ceiling. X-ray was brought in. I manipulated the slightly to get an anatomic reduction. The right hip and leg were then scrubbed with Hibiclens, prepped with ChloraPrep and draped in usual sterile fashion. A curvilinear incision made just proximal tip of the trochanter. Sharp dissection Through subcutaneous tissues down to the gluteal fascia. Gluteal fascia incised longitudinally in line with skin incision. A guidewire was placed just lateral to the tip of the trochanter in both AP and lateral planes. It was Armijo down the IM canal under fluoroscopic guidance. This was overreamed with a large reamer. The guidewire was then removed and exchanged for a ball- tipped guidewire. This was placed down the canal. We measured for nail length. 360 mm nail was selected. I then overreamed this with a 12.5 mm reamer. A 360 mm right Synthes long trochanteric nail was then advanced over the guidewire. Was tapped in position. The guidewire was removed. The lateral aiming arm was placed. It was advanced to the lateral aspect the femur through a stab incision. A guidewire was placed in the central aspect of the femoral head and neck in both the AP and lateral planes. This was then measured and a 95 mm helical blade was selected. The step drill was used for the cortex and the triple reamer set at 95 was advanced. A 95 mm helical blade was then placed over the guidewire. It was tapped into position. The proximal setscrew was tightened. The lateral aiming arm was removed and Safyral x-rays were obtained. Attention drawn to the distal interlocking. Using a perfect squaxin technique a distal interlocking screw was placed in the dynamic hole. Some final x-rays were obtained. Attention drawn toward closing. The wound was irrigated with copious amounts of irrigation. I injected locally with 30 cc of half percent Marcaine with epinephrine. The gluteal fascia then closed with #1 Vicryl suture in a running fashion for the subcutaneous tissues of the proximal wound were closed in 2 layers with the deep layer #1 Vicryl suture and subcutaneous tissues with 2-0 Dexon suture in a buried interrupted fashion. The other incision sites were closed with a single layer of subcu stitches of 2-0 Vicryl suture. His skin was then closed with skin hannah. The leg was then cleaned and dried and a sterile dressing with Xeroform, 4 fours, ABD pad and foam tape was applied. The patient was then brought out of general esthesia and transferred to the recovery in stable condition. Patient tolerated the procedure well and there were no complications. Edwin Leal, my physician assistant manager airside operations, was present for the entire procedure. His assistance was required for proper patient positioning, prepping and draping, surgical exposure, retraction, perform the technical details of the operation, placement of hardware, closure of the incision sites and placement of sterile bandage. I attest to the content of the Intraoperative Record and any orders documented therein. Any exceptions are noted below.
--- NOTE | 2024-05-25 17:34 | Fluoroscopy Report ---
FL hip RT 2-3V CLINICAL HISTORY: Right Trochnail COMPARISON STUDY: Pelvis and right hip radiographs May 24, 2024. FLUOROSCOPY TIME: 96.9 seconds. Ka, r: 19.03 mGy FLUOROSCOPIC IMAGES: 4 FINDINGS: Fluoroscopy was provided during open reduction and internal fixation of the intertrochanter ic fracture of the right femur with trochanteric nail. Fracture alignment has significantly improved and is near anatomic. Hardware is intact. IMPRESSION: Fluoroscopy provided during open reduction and internal fixation of the intertrochanteri c fracture of the right femur. ACT 112: Negative or not required by law. Electronically signed by: Otoniel Lemus M.D. 05/25/2024 5:32 PM
[2024-05-25] MEDS: LABETALOL HCL IV 5 MG/ML 20ML IV ONE (17:37)
[2024-05-25] MEDS: LABETALOL HCL IV 5 MG/ML 20ML IV STA (17:45)
[2024-05-25] MEDS: SODIUM CHLORIDE 0.9% 1,000 ML IV SCH (18:38)
--- NOTE | 2024-05-25 18:46 | Anesthesiology Progress Note ---
Date of Service May 25, 2024 Anesthesia Post Procedure Vital Signs Vital Signs: Temp Pulse Pulse Pulse Pulse Resp BP 05/25/24 18:41 05/25/24 18:39 36.2 C L 122 H 16 05/25/24 18:29 36.5 C 66 16 05/25/24 18:00 36.4 C L 107 H 14 05/25/24 17:50 111 H 12 05/25/24 17:40 110 H 12 05/25/24 17:30 120 H 12 05/25/24 17:20 36 C L 120 H 12 05/25/24 17:10 118 H 12 05/25/24 17:02 36 C L 118 H 12 05/25/24 14:32 36.5 C 95 H 22 05/25/24 11:49 83 18 05/25/24 10:11 88 22 05/25/24 08:00 92 H 22 05/25/24 06:03 84 15 121/70 05/25/24 05:06 84 15 109/67 05/25/24 04:00 82 11 L 104/59 L 05/25/24 03:44 78 16 109/66 05/25/24 00:13 05/25/24 00:13 05/25/24 00:06 05/25/24 00:00 87 20 05/24/24 23:09 86 05/24/24 20:41 85 18 05/24/24 19:02 97 H 20 BP Pulse Ox O2 Del Method O2 Flow Rate 05/25/24 18:41 97 Oxymask 2 05/25/24 18:39 107/59 L 91 Oxymask 05/25/24 18:29 134/72 92 Room Air 05/25/24 18:00 104/63 95 Oxymask 3 05/25/24 17:50 100/55 L 92 Oxymask 4 05/25/24 17:40 92/54 L 93 Oxymask 5 05/25/24 17:30 117/54 L 94 Oxymask 5 05/25/24 17:20 114/58 L 98 Oxymask 10 05/25/24 17:10 123/60 94 Oxymask 10 05/25/24 17:02 137/66 96 Oxymask 10 05/25/24 14:32 109/67 97 Nasal Cannula 2 05/25/24 11:49 119/64 97 Nasal Cannula 2 05/25/24 10:11 116/74 96 Nasal Cannula 2 05/25/24 08:00 123/68 96 Nasal Cannula 2 05/25/24 06:03 99 Nasal Cannula 2 05/25/24 05:06 98 Nasal Cannula 2 05/25/24 04:00 100 Nasal Cannula 2 05/25/24 03:44 98 Nasal Cannula 2 05/25/24 00:13 97 Nasal Cannula 2 05/25/24 00:13 90 Room Air 2 05/25/24 00:06 96 Room Air 05/25/24 00:00 97/54 L 92 Room Air 05/24/24 23:09 05/24/24 20:41 110/57 L 94 Room Air 05/24/24 19:02 90/54 L 100 Room Air Pain Intensity Right Hip: Pain Intensity: 2 Transfer of Care Handoff Completed per policy Notes Mental Status: alert / awake / arousable Patient Amnestic to Procedure: Yes Nausea / Vomiting: adequately controlled Pain: adequately controlled Airway Patency, RR, SpO2: stable & adequate BP & HR: stable & adequate Hydration State: stable & adequate Anesthetic Complications: no major complications apparent
[2024-05-25] MEDS: ceFAZolin 1000MG 1,000 MG/7.5 ML SYR IV SCH (21:09)
[2024-05-26] MEDS: ALBUMIN 25% 25 GM/100 ML VIAL IV ONE (05:27)
[2024-05-26] MEDS: DIGOXIN 250 MCG in SYRINGE 9 ML IV STA (05:42)
[2024-05-26 05:43] LABS: Basophils # (auto) 0.02 K/uL (0.00-0.20); Basophils % (auto) 0.1 %; Eosinophils # (auto) 0.02 K/uL (0.00-0.50); Eosinophils % (auto) 0.1 %; Hematocrit (blood only) 23.8 % (37.0-47.0); Hemoglobin 7.9 g/dl (12.0-16.0); Immature Granulocytes # (auto) 0.09 K/uL (0.01-0.20); Immature Granulocytes % (auto) 0.7 %; Lymphocytes # (auto) 0.98 K/uL (1.20-3.40); Lymphocytes % (auto) 7.2 %; Mean Corpuscular Hemoglobin 30.6 pg (25.0-34.0); Mean Corpuscular Hgb Conc 33.2 g/dL (32.0-36.0); Mean Corpuscular Volume 92.2 fL (80.0-100.0); Mean Platelet Volume 10.7 fL (9.4-12.4); Monocytes # (auto) 1.11 K/uL (0.11-0.59); Monocytes % (auto) 8.2 %; Neutrophils # (auto) 11.31 K/uL (1.40-6.50); Neutrophils % (auto) 83.7 %; Nucleated RBC # (auto) 0.17 K/uL (0.00-0.12); Nucleated RBC % (auto) 1.3 %; Platelet Count 160 K/uL (130-400); RDW Coefficient of Variation 17.8 % (11.5-14.5); RDW Standard Deviation 58.7 fL (36.4-46.3); Red Blood Count 2.58 M/uL (4.20-5.40); White Blood Count 13.53 K/ul (4.8-10.8)
[2024-05-26 05:56] LABS: Albumin Globulin Ratio 1.2 (0.9-2); Albumin Level 2.9 gm/dl (3.4-5.0); BUN Creatinine Ratio 20.8 (10-20); Bilirubin,Total 0.4 mg/dl (0.2-1.0); Calcium 8.4 mg/dl (8.6-10.3); Creatinine Clr Calc Pharmacy 24.4 ml/min; Est GFR (Non-African American) 25.9 ml/min; Globulin 2.4 gm/dl (2.5-4.0); Magnesium 1.7 mg/dl (1.7-2.4); Potassium 4.6 mmol/L (3.5-5.1); Total Protein 5.3 gm/dl (6.0-8.3)
[2024-05-26 06:03] LABS: RBC Morphology Unremarkable
[2024-05-26] MEDS: MAGNESIUM SULFATE / D5W 1 GM/100 ML BAG IV ONE ×2 (06:04→08:23)
[2024-05-26 06:10] LABS: Thyroid Stimulating Hormone 1.281 uIu/ml (0.300-4.500)
[2024-05-26 06:16] LABS: Ferritin 511.5 ng/ml (8-388)
--- NOTE | 2024-05-26 07:44 | Orthopedic Progress Note ---
Date of Service May 26, 2024 Assessment & Plan (1) Closed intertrochanteric fracture of right hip: POD #1 from right TFN. Pain seems reasonably controlled. PT/OT wbat dvt prophylaxis: teds, scd's, aspirin Will discuss with Dr Graham Moreno .83 year old patient POD #1 from right TFN for hip fx. Denies having hip pain but says she has not been up out of bed yet or moving much. She is hungry and thirsty. Review of Systems All systems reviewed & are unremarkable except as noted in HPI & below. Physical Exam .alert, NAD Hypotensive and tachycardic Right leg: Dressing clean, dry, intact. Thigh soft. Able to DF/PF. NVI Hgb 7.9 Results & Data Results & Data Laboratory Results . Diagnostic Findings . PG Care Time/CCT Total # of Minutes Spent Total Time Spent with Patient: Total time spent is greater than 50% in coordination of care (as documented) at patient's floor/unit and/or counseling patient: Coding Level of Care Code 55230 Post Operative Follow-Up Diagnoses Closed intertrochanteric fracture of right hip S72.141A
[2024-05-26] MEDS ORDERED: SODIUM CHLORIDE 0.9% 250 ML IV PRN ×3 (07:58→22:15)
[2024-05-26] MEDS: SODIUM CHLORIDE 0.9% 250 ML IV ONE ×2 (08:19→16:42)
[2024-05-26] MEDS ORDERED: INFLUENZA VACC TS2024-25(65y+)/PF (IIV3) 0.5mL Syr IM ONE (09:38)
--- NOTE | 2024-05-26 10:10 | Hospitalist Progress Note ---
Date of Service May 26, 2024 Assessment & Plan (1) Fracture of right femur: Plan Inga Barakat is an 83y/o F with PMHx significant for DM type II, secondary hyperparathyroidism, diabetic retinopathy, CKD stage III, hypothyroidism, polyneuropathy, PVD, HLD, RADHA on 2L of O2 via NC, moderate persistent asthma, nocturnal hypoxemia, COPD, paroxysmal atrial fibrillation s/p Watchman procedure, sick sinus syndrome s/p pacemaker placement, pulmonary hypertension, chronic diastolic CHF, left carotid artery aneurysm, aortic atherosclerosis, severe tricuspid regurgitation, s/p mitral valve clip for severe mitral regurgitation, GERD, sigmoid diverticulosis, Mnire's disease, anemia, history of TIA, history of endometrial cancer and depression who presented to the ED via EMS after sustaining a fall at home and was found to have an acute displaced angulated intertrochanteric fracture of the right femur. Right Femur Fracture S/P Fall: R hip XR shows an acute displaced angulated intertrochanteric fracture of the R femur. POD #1 R hip intertrochanteric IM Nail Smith cath, PT/OT evals post operatively pt has chronic diarrhea will monitor this while on narcotics EBL 100ml Chronic Diastolic CHF Severe Tricuspid Regurgitation Hx of severe mitral regurg s/p Mitral Clip Pre operatively pt examined as mildly volume overloaded She received 1mg IV bumex, now POD she is hypovolemic in setting of volume depletion due to NPO status and diuresis Hold Torsemide - will need to resume when able daily weight, Strict I and O weight in ED on 05/24 reveal 76kg which is up from 68-70kg in March Post Operative Hypotension & Afib w/ RVR suspect in setting of volume depletion from NPO status/IV diuresis pre op ordered 250ml IV fluid bolus, replace mag to keep >2, IV albumin x 3 doses VSS q1hr x4 and then q4h, will monitor closely need to additional fluid. She is eating and tolerating po intake repeat hgb nad mag @ 1300 to determine if pt will potentially require blood pr oducts cardiology consulted to assist with rate management of afib, but suspect should improve when volume status improves CKD Stage III: CR. 1.4 today Baseline Cr ~1.7-1.8 per chart review. Avoid nephrotoxic medications when able. Monitor renal function closely with AM labs. Mild Transaminitis: AST 49 and Alk Phos 230 on admission. Pt with recent LFT elevation and intermittent elevation in past - suspect possible induced by recent viral illness, also on statin RADHA, Nocturnal Hypoxia: Continue baseline 2L O2 HS. Persistent AFib S/P Watchman Procedure: SSS s/p PPM hx of LV thrombus Continue metoprolol succinate and aspirin therapy. Pre operatively was rate controlled but does appear to have been in afib since February Continuous cardiac monitoring in place, metoprolol with hold parameters. She has been off eliquis since March and on ASA only Consult cardiology Dr. Chavarria - he is aware of consult and pt well known to him, appreciate cardiology recs She did receive dose of IV digoxin overnight Will keep Mag and K > 2.0 and 4.0 respectively Iron Def Anemia Anemia 2/2 Chronic GI Losses follow hemoglobin closely, on ASA therapy only pre op hgb 8.5, hgb today 7.9 iron panel with low iron at 17 and T sat at 9% Hgb @ 1300 was 6.8 with persistent hypotension, 1 unit PRBC ordered for pt, will evaluate hgb later this evening Asthma/COPD: Can continue home medications. No acute exacerbation DM Type II: Diet-controlled. A1c was 6.9% on 03/24/24. Hold off on SSI for now. BSG checks ACHS. Monitor BSG. Chronic Diarrhea son reports this has improved since being off eliquis monitor Hypothyroidism: TSh fluctuating as outpt, in February was 24 and April 0.68. Will repeat TSH/T4 in a.m., continue current dose Other Chronic Medical Conditions: HLD, gout, GERD and depression --> Can continue home medications for these specific conditions. DVT Prophylaxis: SCDs/TEDs for now pending orthopedic surgery evaluation. Code Status: DNR/DNI PCP: Florentin Calvo DO Disposition: Pt not yet medically stable for discharge, pts volume status needs to be optimized, she will need rehab. Discussed with pts daughter at bedside. She was updated regarding current treatment plan I spent a total of 55 minutes minutes coordinating, documenting, and providing care for this patient excluding time spent in the performance of separately billed services. This included personally reviewing all current laboratories and imaging studies, medical reconciliation, outpatient chart review and discussion with specialists. This chart was completed in part utilizing Speech Voice Recognition Software. Grammatical errors, random word insertions, pronoun errors, and incomplete sentences are an occasional consequence of this system due to software limitations, ambient noise, and hardware issues. Any formal questions or concerns about the content, text, or information contained within the body of this dictation should be directly addressed to the provider for clarification. Admission and Anticipated Discharge Date Admission Date: May 24, 2024 Supervising Physician Co-Signing Physician Notes I have seen and discussed the case with the collaborating advanced practitioner. I agree with the above PN. I have reviewed and confirmed the patients medical history, the findings on physical examination, and the patients diagnosis and treatment plan with Yuliana FULTON and agree with the information documented. Discussed case with Dr. Chavarria given afib rvr iso dehydration/?post op blood loss. Repeat HnH 6.8, 1 unit prbc ordered. pt received gentle fluid bolus given post op hypotension. Pt asymptomatic , declined chest pain/palpitations/sob/dizziness. Will c/w gentle maintenance ivf. Monitor volume status. I spent a total of 40 minutes coordinating, documenting, and providing care for this patient excluding time spent in the performance of separately billed services. All of the aforementioned completed outside of collaborating with the assigned advanced practitioner for a full treatment plan. I have reviewed the advanced practitioner's documentation, and I agree with, and take responsibility for the plan of care Subjective Pt with episodes of hypotension and afib with RVR overnight. "I've been up since 330. I am so tired and thirsty." She states she did not eat/ drink anything yesterday. Even after surgery. She denies lightheaded, dizziness, chest pain, sob, palpitations, n/v/d, abd pain. Nurse reports overnight she received IV albumin and magnesium. Review of Systems Review of Systems: All systems reviewed & are unremarkable except as noted in HPI & below Physical Exam Physical Exam: VSS BP 80/42 LUE, HR 105, O2 96% on 2L Gen: WD/WN, F, NAD, elderly, [place], A&O x3 HEENT: Normocephalic, atraumatic, conjunctivae moist, sclerae anicteric, mucous membranes dry. Lung: Clear to Auscultation bilaterally, no wheezes/rales/rhonchi Heart: IRR/IRR, 1/6 SUE, rubs, or gallops Abdomen: Soft, NT, ND +BS x 4 Extremities: No edema, RLE dressing CDI Skin: Warm, no rash, negative turgor. Results & Data Results & Data Vital Signs (Past 12 Hours) Vital Signs Temp Pulse Pulse Pulse Resp BP BP 05/26/24 08:36 36.5 C 107 H 16 87/43 L 05/26/24 06:34 105 H 05/26/24 06:34 86/56 L 05/26/24 05:00 120 H 05/26/24 05:00 84/49 L 05/26/24 04:00 36.2 C L 117 H 18 81/46 L 05/25/24 23:22 36.4 C L 122 H 18 108/55 L 05/25/24 22:02 121 H Pulse Ox O2 Del Method O2 Flow Rate 05/26/24 08:36 94 Room Air 05/26/24 06:34 05/26/24 06:34 05/26/24 05:00 05/26/24 05:00 05/26/24 04:00 94 Nasal Cannula 2 05/25/24 23:22 92 Nasal Cannula 2 05/25/24 22:02 Laboratory Results Short CBC 05/26/24 Range/Units 05:25 WBC 13.53 H (4.8-10.8) K/ul Hgb 7.9 L (12.0-16.0) g/dl Hct 23.8 L (37.0-47.0) % Plt Count 160 (130-400) K/uL BMP 05/26/24 05:25 Sodium 137 Potassium 4.6 Chloride 106 Carbon Dioxide 20 L BUN 37 H Creatinine 1.78 H D Glucose 130 H Calcium 8.4 L Liver Function 05/26/24 Range/Units 05:25 Total Bilirubin 0.4 (0.2-1.0) mg/dl AST 37 (13-39) U/L ALT 18 (7-52) U/L Alkaline Phosphatase 158 H (34-104) U/L Albumin 2.9 L (3.4-5.0) gm/dl Medications Administered Current Inpatient Medications Allopurinol (Allopurinol 300 Mg Tab) 300 mg PO HS JULIO CESAR Stop: 06/23/24 20:59 Last Admin: 05/25/24 21:11 Dose: 300 mg Aspirin (Aspirin 81 Mg Ectab) 81 mg PO BID JULIO CESAR Stop: 06/24/24 20:59 Last Admin: 05/26/24 08:28 Dose: 81 mg Atorvastatin Calcium (Atorvastatin 20 Mg Tab) 20 mg PO QAM [facility] Stop: 06/24/24 08:59 Last Admin: 05/26/24 08:28 Dose: 20 mg Buspirone HCl (Buspirone 5 Mg Tab) 5 mg PO AMHS [facility] Stop: 06/23/24 20:59 Last Admin: 05/26/24 08:28 Dose: 5 mg Hydromorphone HCl (Hydromorphone Inj 0.5 Mg/0.5 Ml Syr) 0.5 mg IV Q6H PRN PRN Reason: Severe Pain (Scale 7, 8, 9,10) Stop: 06/07/24 13:42 Last Admin: 05/25/24 08:08 Dose: 0.5 mg Albumin Human (Albumin 25%) 25 gm in 100 mls @ 50 mls/hr IV Q8H [facility] Stop: 05/27/24 03:59 Sodium Chloride (Nss) 250 mls @ 15 mls/hr IV .[id number] PRN PRN Reason: For Transfusion Duration Stop: 05/26/24 17:58 Levalbuterol HCl (Levalbuterol Tartrate 15 Gm Hfa.Aer.Ad) 1 puffs INH Q4H PRN PRN Reason: Shortness Of Breath Stop: 06/23/24 13:40 Levothyroxine Sodium (Levothyroxine Sodium 175 Mcg Tablet) 175 mcg PO DAILYBB [facility] Stop: 06/24/24 06:29 Last Admin: 05/26/24 06:10 Dose: 175 mcg Metoprolol Succinate (Metoprolol Succ 25mg Ext Rel Tab) 25 mg PO BID [facility] Stop: 06/23/24 20:59 Last Admin: 05/25/24 21:09 Dose: 25 mg Montelukast Sodium (Montelukast Sodium 10 Mg Tablet) 10 mg PO PM JULIO CESAR Stop: 06/23/24 20:59 Last Admin: 05/25/24 21:09 Dose: 10 mg Morphine Sulfate (Morphine Sulfate 2 Mg/Ml Carp) 1 mg IM Q6H PRN PRN Reason: Breakthrough Pain Stop: 06/07/24 13:42 Last Admin: 05/24/24 21:52 Dose: 1 mg Ondansetron HCl (Ondansetron Inj 2 Mg/Ml 2 Ml Vial) 4 mg IV Q6H PRN PRN Reason: Nausea Stop: 06/23/24 15:35 Oxycodone HCl (Oxycodone Hcl Ir 5 Mg Tab (Immediate Release)) 5 - 10 mg PO QID PRN PRN Reason: Pain Stop: 06/07/24 20:56 Last Admin: 05/25/24 13:54 Dose: 5 mg Pantoprazole Sodium (Pantoprazole 40 Mg Tab) 40 mg PO BID JULIO CESAR Stop: 06/23/24 20:59 Last Admin: 05/26/24 08:29 Dose: 40 mg Polyethylene Glycol (Polyethylene (Miralax) 17 Gm Pack) 17 gm PO DAILY PRN PRN Reason: Constipation Stop: 06/23/24 15:35 Sertraline HCl (Sertraline Hcl 50 Mg Tablet) 150 mg PO QAM JULIO CESAR Stop: 06/24/24 08:59 Last Admin: 05/26/24 08:30 Dose: 150 mg Torsemide (Torsemide 20 Mg Tab) 20 mg PO QAM JULIO CESAR Stop: 06/24/24 08:59 Last Admin: 05/25/24 08:09 Dose: 20 mg Torsemide (Torsemide 20 Mg Tab) 20 mg PO HS JULIO CESAR Stop: 06/23/24 20:59 Last Admin: 05/25/24 21:08 Dose: 20 mg Umeclidinium/Vilanterol (Umeclidinium/Vilanterol 62.5/25mcg 7 Puffs/Inhaler) 1 puffs INH QAM JULIO CESAR; Protocol Stop: 06/24/24 08:59 Last Admin: 05/25/24 08:08 Dose: 1 puffs Vitamin D (Cholecalciferol 25 Mcg (1000 Units) Tab) 100 mcg PO QAM JULIO CESAR Stop: 06/24/24 08:59 Last Admin: 05/26/24 08:28 Dose: 100 mcg (1) Fracture of right femur Encounter type: initial encounter Femur location: unspecified portion of femur Fracture morphology: unspecified fracture morphology Fracture type: closed Qualified Code(s): S72.91XA - Unspecified fracture of right femur, initial encounter for closed fracture
[2024-05-26] MEDS: ALBUMIN 25% 25 GM/100 ML VIAL IV SCH (11:32)
--- NOTE | 2024-05-26 12:18 | Cardiology Consultation ---
Date of Consultation May 26, 2024 Assessment & Plan (1) Persistent atrial fibrillation with rapid ventricular response: (2) Fall: (3) Closed intertrochanteric fracture of right hip: (4) TIFFANY (acute kidney injury): (5) S/P mitral valve clip implantation: (6) Presence of Watchman left atrial appendage closure device: (7) Chronic diastolic (congestive) heart failure: (8) Cardiac pacemaker in situ: Plan Patient is an 83-year-old female with complex underlying cardiac disease which includes persistent atrial fibrillation, chronic diastolic/valvular heart failure with prior mitral valve clip for severe mitral insufficiency. Recent hospitalizations for weakness and fatigue possible post-COVID, acute renal Hospitalized this admission following mechanical fall and right hip fracture Heart rates elevated postoperatively multifactorial including pain, volume loss and anemia Recommendations treat underlying concerns agree with gentle hydration. Continue metoprolol succinate May require transfusion Cardiology will follow History of Present Illness Reason for Consultation: Persistent atrial fibrillation with elevated ventricular response rate, complex cardiac issues Requesting Physician: Dr. Herrera Attending Physician: Deepa Herrera MD History of Present Illness Patient is an 83-year-old female with underlying multiple cardiac issues and noncardiac issue including 1. Chronic diastolic CHF secondary to valvular insufficiency Moderate to severe MR and severe TR, status post MitraClip XT W and mitral clip XT, 03/06/2023 Echo Jul 2023 - Mild MR with mitral clip; moderate mitral stenosis 2. S/P Watchman device implantation on 07/31/23 at [facility] [place] - discharged on ASA and Plavix -Follow-up transesophageal echocardiogram at [facility] [place], 09/15/2023 revealed 2.9 cm thrombus on the atrial surface of the Watchman device prompting discontinuation of antiplatelet therapy and initiation of Eliquis 2.5 mg twice daily 3.Severe pulmonary hypertension, multifactorial including valvular heart disease also following with Pulmonary 3.History of sick sinus syndrome with recurrent syncope, status post LINQ, now status post dual chamber permanent pacemaker 07/2022 4.Persistent atrial fibrillation a.[id number] score of 7 (age 2, female, CHF,DM, TIA 2)- Not on AC due to severe GIB in the past status post Watchman 5.Hx of TIA 6.Hypertension 7.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 Recent events noted with patient hospitalized with renal insufficiency and acute weakness 2 weeks ago. This admission patient notes reached for a walker and "missed" fell to the floor with subsequent right hip fracture. Yesterday underwent surgical repair pair. Received IV Bumex prior to procedure Atrial fibrillation rates elevated overnight, postoperatively Patient currently without acute cardiac complaint. Denies chest pains dizziness or lightheadedness. Blood pressures were low and patient received fluid resuscitation. Torsemide on hold Has not received a.m. metoprolol succinate Denies any fevers or chills. Moderate right hip pain. Allergies Allergy/AdvReac Type Severity Reaction Status Date / Time Sulfa (Sulfonamide Allergy Severe Severe Verified 04/13/24 00:16 Antibiotics) rxn: rash and hives celecoxib Allergy Intermediate Rash/Hives/ Verified 04/13/24 00:16 Itching. cephalexin Allergy Intermediate Rash/Hives/ Verified 04/13/24 00:16 Itching. furosemide Allergy Intermediate Rash/Hives/ Verified 04/13/24 00:16 Itching. gabapentin Allergy Intermediate Rash/Hives/ Verified 04/13/24 00:16 Itching. pregabalin Allergy Intermediate Rash/Hives/ Verified 04/13/24 00:16 Itching. meclizine Allergy Unknown Unknown Verified 04/13/24 00:16 methylprednisolone Allergy Unknown Rash/Hives/ Verified 04/13/24 00:16 Itching. Penicillins Allergy Unknown Unknown. Verified 04/13/24 00:16 prednisone Allergy Unknown Rash/Hives/ Verified 04/13/24 00:16 Itching. vancomycin Allergy Unknown Jodi Verified 04/13/24 00:16 syn. . nickel Allergy Unknown Verified 04/13/24 00:16 dexamethasone AdvReac Intermediate Steroid Verified 04/13/24 00:16 psychosis. Home Medications Medication Instructions Recorded Confirmed Type montelukast 10 mg tablet 10 mg PO PM 04/08/19 05/24/24 History atorvastatin 20 mg tablet 20 mg PO QAM 11/26/21 05/24/24 History cholecalciferol (vitamin D3) 50 100 mcg PO QAM 11/26/21 05/24/24 History mcg (2,000 unit) capsule (Vitamin D3) levalbuterol tartrate 45 1 puff inhalation Q4H PRN 08/07/22 05/24/24 History mcg/actuation aerosol inhaler Shortness Of Breath (Xopenex HFA) sertraline 100 mg tablet 150 mg PO QAM 08/07/22 05/24/24 History tiotropium 2.5 mcg-olodaterol 2.5 2 puff inhalation QAM 11/07/22 05/24/24 History mcg/actuation mist for inhalation (Stiolto Respimat) torsemide 10 mg tablet 20 mg PO QAM 11/07/22 05/24/24 History ipratropium bromide 21 mcg (0.03 2 spray intranasal DAILY PRN 12/06/22 05/24/24 History %) nasal spray rhinorrhea pantoprazole 40 mg tablet,delayed 40 mg PO BID #60 tabs 12/09/22 05/24/24 Rx release allopurinol 300 mg tablet 300 mg PO HS 08/14/23 05/24/24 History metoprolol succinate 25 mg 25 mg PO BID #60 tabs 10/22/23 05/24/24 Rx tablet,extended release 24 hr diphenoxylate-atropine 2.5 1 tab PO BID PRN Diarrhea 03/07/24 05/24/24 History mg-0.025 mg tablet levothyroxine 175 mcg tablet 175 mcg PO DAILYBB 03/21/24 05/24/24 History fentanyl 12 mcg/hr transdermal 12 mcg transdermal Q3D 03/23/24 05/24/24 History patch aspirin 81 mg tablet,delayed 81 mg PO QAM #30 tabs 03/25/24 05/24/24 Rx release oxycodone 5 mg tablet 5 mg PO QID PRN pain severe #35 03/25/24 05/24/24 Rx tabs acetaminophen 500 mg tablet 1,000 mg PO Q6H PRN Pain 04/13/24 05/24/24 History (Tylenol Extra Strength) benzonatate 100 mg capsule 100 mg PO Q6H PRN cough #20 caps 04/15/24 05/24/24 Rx guaifenesin 600 mg tablet, 600 mg PO Q12 PRN cough #20 tabs 04/15/24 05/24/24 Rx extended release 12 hr (Mucinex) buspirone 5 mg tablet 5 mg PO AMHS 05/13/24 05/24/24 History ondansetron HCl 4 mg tablet 4 mg PO UD PRN Nausea And Vomiting 05/13/24 05/24/24 History Patient History Medical History Generalized weakness Pericardial effusion Low back pain Angio-edema Nausea Leukocytosis Near syncope Hypotension Dehydration TIFFANY (acute kidney injury) Near syncope Elevated brain natriuretic peptide (BNP) level Pneumonia Atrial flutter Carotid artery aneurysm Prolonged QT interval Atrial fibrillation with RVR DM type 2 (diabetes mellitus, type 2) Encounter for pre-operative examination Cholelithiasis Cholecystitis Chest pain at rest Pulmonary emphysema Osteoarthritis of right knee HTN (hypertension) Surgical History History of hysterectomy History of cholecystectomy Family History Father Diabetes Social History Smoking Status: Never smoker Tobacco Type: Cigarettes packs per day: 1.5; Cigarettes Per Day: 30; Second Hand Exposure: No; Do You Dip or Chew Tobacco: No; Hx Alcohol Use: No Hx Substance Use: No Preferred Language: Luxembourger Communication Ability: Effective 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 Beliefs That Will Affect Care: None marital status: Current Living Situation: Spouse Feels Safe at Home: Yes Assistive Devices: Glasses, Oxygen - at Night and Walker Review of Systems Review of Systems: All systems reviewed & are unremarkable except as noted in HPI & below Physical Exam Constitutional: + thin and + frail appearing; no acute d istress Eyes: PERRL, conjunctivae normal, anicteric sclerae Neck: trachea midline, no thyromegaly Respiratory: normal respiratory effort, lungs clear to auscultation Cardiovascular: Rate/Rhythm: + irregularly irregular Heart Sounds: + murmur Vessels: no JVD Extremities: + edema (Trace edema with chronic stasis change) Gastrointestinal (Abdomen): normal bowel sounds, soft, nontender, no hepatosplenomegaly Musculoskeletal: Right hip bandaged Results & Data Vital Signs (Past 12 Hours) Vital Signs Temp Pulse Pulse Resp BP BP Pulse Ox 05/26/24 12:05 36.2 C L 94 H 16 87/48 L 94 05/26/24 08:36 36.5 C 107 H 16 87/43 L 94 05/26/24 06:34 105 H 05/26/24 06:34 86/56 L 05/26/24 05:00 120 H 05/26/24 05:00 84/49 L 05/26/24 04:00 36.2 C L 117 H 18 81/46 L 94 O2 Del Method O2 Flow Rate 05/26/24 12:05 Room Air 05/26/24 08:36 Room Air 05/26/24 06:34 05/26/24 06:34 05/26/24 05:00 05/26/24 05:00 05/26/24 04:00 Nasal Cannula 2 Laboratory Results Laboratory Results - last 24 hr 05/25/24 05/25/24 05/26/24 14:57 18:13 05:25 WBC 13.53 H RBC 2.58 L Hgb 7.9 L Hct 23.8 L MCV 92.2 MCH 30.6 MCHC 33.2 RDW Std Deviation 58.7 H RDW Coeff of Francisco Javier 17.8 H Plt Count 160 MPV 10.7 Immature Gran % (Auto) 0.7 Neut % (Auto) 83.7 Lymph % (Auto) 7.2 Potter % (Auto) 8.2 Eos % (Auto) 0.1 Baso % (Auto) 0.1 Neut # (Auto) 11.31 H Lymph # (Auto) 0.98 L Potter # (Auto) 1.11 H Eos # (Auto) 0.02 Baso # (Auto) 0.02 Immature Gran # (Auto) 0.09 Absolute Nucleated RBC 0.17 H Nucleated RBC % (auto) 1.3 RBC Morphology Unremarkable Sodium 137 Potassium 4.6 Chloride 106 Carbon Dioxide 20 L Anion Gap 11 BUN 37 H Creatinine 1.78 H D Est Cr Clr Drug Dosing 24.4 Est GFR ( Amer) 30.0 Est GFR (Non-Af Amer) 25.9 BUN/Creatinine Ratio 20.8 H Glucose 130 H POC Glucose 97 113 H Lactate 1.3 Calcium 8.4 L Magnesium 1.7 Iron 17 L TIBC 181 L Unsaturated IBC 164 Transferrin % Sat 9 L Ferritin 511.5 H Total Bilirubin 0.4 AST 37 ALT 18 Alkaline Phosphatase 158 H Total Protein 5.3 L Albumin 2.9 L Globulin 2.4 L Albumin/Globulin Ratio 1.2 25-OH Vitamin D Total 43.7 TSH 1.281 05/26/24 05/26/24 08:09 12:20 WBC RBC Hgb Hct MCV MCH MCHC RDW Std Deviation RDW Coeff of Francisco Javier Plt Count MPV Immature Gran % (Auto) Neut % (Auto) Lymph % (Auto) Potter % (Auto) Eos % (Auto) Baso % (Auto) Neut # (Auto) Lymph # (Auto) Potter # (Auto) Eos # (Auto) Baso # (Auto) Immature Gran # (Auto) Absolute Nucleated RBC Nucleated RBC % (auto) RBC Morphology Sodium Potassium Chloride Carbon Dioxide Anion Gap BUN Creatinine Est Cr Clr Drug Dosing Est GFR ( Amer) Est GFR (Non-Af Amer) BUN/Creatinine Ratio Glucose POC Glucose 173 H 199 H Lactate Calcium Magnesium Iron TIBC Unsaturated IBC Transferrin % Sat Ferritin Total Bilirubin AST ALT Alkaline Phosphatase Total Protein Albumin Globulin Albumin/Globulin Ratio 25-OH Vitamin D Total TSH
[2024-05-26 13:21] LABS: Hematocrit (blood only) 21.1 % (37.0-47.0); Hemoglobin 6.8 g/dl (12.0-16.0)
[2024-05-26] MEDS: SODIUM CHLORIDE 0.9% 1,000 ML IV SCH (18:15)
[2024-05-26 21:19] LABS: Hematocrit (blood only) 24.5 % (37.0-47.0); Hemoglobin 7.8 g/dl (12.0-16.0)
[2024-05-27] MEDS: ACETAMINOPHEN 1,000 MG/100 ML VIAL IV STA (00:47)
[2024-05-27 07:23] LABS: Basophils # (auto) 0.03 K/uL (0.00-0.20); Basophils % (auto) 0.2 %; Eosinophils # (auto) 0.65 K/uL (0.00-0.50); Eosinophils % (auto) 4.8 %; Hematocrit (blood only) 27.6 % (37.0-47.0); Hemoglobin 8.9 g/dl (12.0-16.0); Immature Granulocytes # (auto) 0.15 K/uL (0.01-0.20); Immature Granulocytes % (auto) 1.1 %; Lymphocytes # (auto) 1.18 K/uL (1.20-3.40); Lymphocytes % (auto) 8.6 %; Mean Corpuscular Hemoglobin 29.9 pg (25.0-34.0); Mean Corpuscular Hgb Conc 32.2 g/dL (32.0-36.0); Mean Corpuscular Volume 92.6 fL (80.0-100.0); Mean Platelet Volume 11.5 fL (9.4-12.4); Monocytes # (auto) 1.28 K/uL (0.11-0.59); Monocytes % (auto) 9.4 %; Neutrophils # (auto) 10.39 K/uL (1.40-6.50); Neutrophils % (auto) 75.9 %; Nucleated RBC # (auto) 0.15 K/uL (0.00-0.12); Nucleated RBC % (auto) 1.1 %; Platelet Count 127 K/uL (130-400); RDW Coefficient of Variation 16.6 % (11.5-14.5); RDW Standard Deviation 54.7 fL (36.4-46.3); Red Blood Count 2.98 M/uL (4.20-5.40); White Blood Count 13.68 K/ul (4.8-10.8)
[2024-05-27 07:40] LABS: BUN Creatinine Ratio 14.5 (10-20); Calcium 8.7 mg/dl (8.6-10.3); Creatinine Clr Calc Pharmacy 15.4 ml/min; Magnesium 2.3 mg/dl (1.7-2.4); Potassium 4.6 mmol/L (3.5-5.1)
--- NOTE | 2024-05-27 08:04 | Orthopedic Progress Note ---
Date of Service May 27, 2024 Assessment & Plan (1) Closed intertrochanteric fracture of right hip: Plan: 83-year-old female postop day 2 from IM nailing of the right inner troches/subtalar fracture. Orthopedically she seen be doing a pretty well. She got multiple medical comorbidities but looks to be doing okay. Plan: 1. DVT prophylaxis including Venus min, SCDs, would recommend aspirin 81 mg twice a day for 6 weeks. She is apparently not on any further anticoagulation for her cardiac arrhythmia. 2. PT/OT. She is fully weightbearing as tolerated. 3. Pain control seems to be doing okay with current pain regimen. 4. Disposition she is orthopedically okay for discharge anytime medically stable. I did see her back 2 to 3 weeks out from surgery date. Any orthopedic questions can be directly [phone]. (2) Fracture of right femur: Admission and Anticipated Discharge Date Admission Date: May 24, 2024 Subjective 83-year-old female postop day 2 from IM nailing of a right hip fracture. She seems to be doing okay. Says she has not really moved around much. Not have much in the way of pain as long she does not move. No new complaints. Physical Exam Physical Exam: Physical exam shows a pleasant elderly female. As she is lying in bed looks pretty comfortable. Examination of right hip and leg reveals leg to be well aligned. Dressings clean dry and intact. Thigh is soft and supple. She is neurologically intact. Results & Data Vital Signs (Past 12 Hours) Vital Signs Temp Pulse Pulse Resp BP BP Pulse Ox 05/27/24 02:53 36.7 C 81 16 85/51 L 95 05/27/24 02:24 36.7 C 83 16 85/47 L 98 05/27/24 01:24 36.6 C 89 16 89/50 L 94 05/27/24 00:24 37.0 C 81 16 90/54 L 97 05/27/24 00:10 05/27/24 00:09 37.0 C 86 16 93/60 L 94 05/26/24 23:54 36.7 C 83 16 90/54 L 95 05/26/24 23:10 37.0 C 94 H 19 91/53 L 94 05/26/24 22:20 87 O2 Del Method O2 Flow Rate 05/27/24 02:53 2 05/27/24 02:24 2 05/27/24 01:24 05/27/24 00:24 05/27/24 00:10 Room Air 05/27/24 00:09 05/26/24 23:54 05/26/24 23:10 Nasal Cannula 2 05/26/24 22:20 Laboratory Results Hemoglobin is 8.9. Hematocrit is 27.6. (2) Fracture of right femur Encounter type: initial encounter Femur location: unspecified portion of femur Fracture type: closed Fracture morphology: unspecified fracture morphology Qualified Code(s): S72.91XA - Unspecified fracture of right femur, initial encounter for closed fracture
[2024-05-27 08:05] LABS: Folate (Folic Acid),Ser orPlas 16.35 ng/ml (>5.38)
[2024-05-27] MEDS: INFLUENZA VACC TS2024-25(65y+)/PF (IIV3) 0.5mL Syr IM ONE (08:10)
[2024-05-27 13:22] LABS: Hematocrit (blood only) 28.8 % (37.0-47.0); Hemoglobin 9.4 g/dl (12.0-16.0)
--- NOTE | 2024-05-27 13:48 | Cardiology Progress Note ---
Date of Service May 27, 2024 Assessment & Plan (1) Persistent atrial fibrillation with rapid ventricular response: (2) Fall: (3) Closed intertrochanteric fracture of right hip: (4) TIFFANY (acute kidney injury): (5) S/P mitral valve clip implantation: (6) Presence of Watchman left atrial appendage closure device: (7) Chronic diastolic (congestive) heart failure: (8) Cardiac pacemaker in situ: Plan Patient is an 83-year-old female with complex underlying cardiac disease which includes persistent atrial fibrillation, chronic diastolic/valvular heart failure with prior mitral valve clip for severe mitral insufficiency. Recent hospitalizations for weakness and fatigue possible post-COVID, acute renal Hospitalized this admission following mechanical fall and right hip fracture Heart rates elevated postoperatively multifactorial including pain, volume loss and anemia Recommendations treat underlying concerns agree with gentle hydration. Continue metoprolol succinate May require transfusion Cardiology will follow 05/27/2024 Events of evening last night noted. Patient currently stable Elevated heart rate secondary to a lapse in beta-caridad therapy. Partially mandated secondary to hypotension Increasing renal insufficiency this morning hemoglobins have improved with transfusion Diuretics remain on hold appropriately though I suspect will need to resume relatively shortly. Would recommend renal consult Issues are as noted 1. Persistent atrial fibrillation with elevated ventricular rates: Heart rate trending towards better control with the use of usual metoprolol. Initial elevation driven by anemia, pain, hypotension. Watchman device in place 2. Acute on chronic renal insufficiency likely secondary to hypotension and prerenal azotemia: Recommend nephrology assistance 3. Heart failure with preserved ejection fraction secondary to diastolic dysfunction, valvular heart disease pulmonary hypertension: No signs of acute volume overload though diuretics have been on hold will follow close Admission and Anticipated Discharge Date Admission Date: May 24, 2024 Subjective Patient seen and examined, chart, medications, telemetry reviewed Participated in physical therapy this morning. No acute dyspnea or chest pain Blood pressure still relatively low. Heart rates elevated last evening after metoprolol held. Received IV digoxin, fluid resuscitation and transfusion for hemoglobin of 6.8 Renal function has worsened overnight despite fluid resuscitation and transfusion Orthopedically appears stable Review of Systems Review of Systems: All systems reviewed & are unremarkable except as noted in Subjective Physical Exam Constitutional: + thin and + frail appearing; no acute d istress Eyes: PERRL, conjunctivae normal, anicteric sclerae Neck: trachea midline, no thyromegaly Respiratory: normal respiratory effort, lungs clear to auscultation Cardiovascular: Rate/Rhythm: + irregularly irregular Heart Sounds: + murmur Vessels: no JVD Extremities: + edema (Trace edema with chronic stasis change) Gastrointestinal (Abdomen): normal bowel sounds, soft, nontender, no hepatosplenomegaly Inspection/Auscultation: + abdomen distended (Mild) Results & Data Vital Signs (Past 12 Hours) Vital Signs Temp Pulse Pulse Pulse Resp BP BP 05/27/24 11:30 36.7 C 96 H 93 H 18 94/62 L 05/27/24 08:00 36.9 C 98 H 18 96/65 L 05/27/24 02:53 36.7 C 81 16 85/51 L 05/27/24 02:24 36.7 C 83 16 85/47 L Pulse Ox O2 Del Method O2 Flow Rate 05/27/24 11:30 96 Nasal Cannula 2 05/27/24 08:00 97 Nasal Cannula 2 05/27/24 02:53 95 2 05/27/24 02:24 98 2 Laboratory Results Laboratory Results - last 24 hr 05/24/24 05/26/24 05/26/24 18:06 17:18 19:49 WBC RBC Hgb Hct MCV MCH MCHC RDW Std Deviation RDW Coeff of Francisco Javier Plt Count MPV Immature Gran % (Auto) Neut % (Auto) Lymph % (Auto) Chambers % (Auto) Eos % (Auto) Baso % (Auto) Neut # (Auto) Lymph # (Auto) Chambers # (Auto) Eos # (Auto) Baso # (Auto) Immature Gran # (Auto) Absolute Nucleated RBC Nucleated RBC % (auto) Sodium Potassium Chloride Carbon Dioxide Anion Gap BUN Creatinine Est Cr Clr Drug Dosing eGFR BUN/Creatinine Ratio Glucose POC Glucose 178 H 214 H Calcium Magnesium Vitamin B12 Folate Blood Type O Positive Antibody Screen NEGATIVE Crossmatch See Detail 05/26/24 05/27/24 05/27/24 20:30 06:33 13:01 WBC 13.68 H RBC 2.98 L Hgb 7.8 L 8.9 L 9.4 L Hct 24.5 L 27.6 L 28.8 L MCV 92.6 MCH 29.9 MCHC 32.2 RDW Std Deviation 54.7 H RDW Coeff of Francisco Javier 16.6 H Plt Count 127 L MPV 11.5 Immature Gran % (Auto) 1.1 Neut % (Auto) 75.9 Lymph % (Auto) 8.6 Chambers % (Auto) 9.4 Eos % (Auto) 4.8 Baso % (Auto) 0.2 Neut # (Auto) 10.39 H Lymph # (Auto) 1.18 L Chambers # (Auto) 1.28 H Eos # (Auto) 0.65 H Baso # (Auto) 0.03 Immature Gran # (Auto) 0.15 Absolute Nucleated RBC 0.15 H Nucleated RBC % (auto) 1.1 Sodium 134 L Potassium 4.6 Chloride 103 Carbon Dioxide 25 Anion Gap 6 BUN 41 H Creatinine 2.82 H D Est Cr Clr Drug Dosing 15.4 eGFR 16.11 BUN/Creatinine Ratio 14.5 Glucose 130 H POC Glucose Calcium 8.7 Magnesium 2.3 Vitamin B12 737 Folate 16.35 Blood Type Antibody Screen Crossmatch
--- NOTE | 2024-05-27 14:18 | Hospitalist Progress Note ---
Date of Service May 27, 2024 Assessment & Plan (1) Fracture of right femur: Plan Inga Barakat is an 83y/o F with PMHx significant for DM type II, secondary hyperparathyroidism, diabetic retinopathy, CKD stage III, hypothyroidism, polyneuropathy, PVD, HLD, RADHA on 2L of O2 via NC, moderate persistent asthma, nocturnal hypoxemia, COPD, paroxysmal atrial fibrillation s/p Watchman procedure, sick sinus syndrome s/p pacemaker placement, pulmonary hypertension, chronic diastolic CHF, left carotid artery aneurysm, aortic atherosclerosis, severe tricuspid regurgitation, s/p mitral valve clip for severe mitral regurgitation, GERD, sigmoid diverticulosis, Mnire's disease, anemia, history of TIA, history of endometrial cancer and depression who presented to the ED via EMS after sustaining a fall at home and was found to have an acute displaced an gulated intertrochanteric fracture of the right femur. She is being managed for the following: Right Femur Fracture S/P Fall: R hip XR shows an acute displaced angulated intertrochanteric fracture of the R femur. 05/25/24 -- R hip intertrochanteric IM Nail Smith cath, PT/OT evals post operatively pt has chronic diarrhea will monitor this while on narcotics Aspirin 81 mg twice daily for DVT prophylaxis. f/u ortho on dc Chronic Diastolic CHF Severe Tricuspid Regurgitation Hx of severe mitral regurg s/p Mitral Clip Pre operatively pt examined as mildly volume overloaded, Received a dose of Bumex 1 mg IV, postoperatively noted to be dry and hypovolemic and had hypotension. Received blood transfusion, getting gentle IV fluid, torsemide on hold, monitor volume status closely. daily weight, Strict I and O Post Operative Hypotension & Afib w/ RVR suspect in setting of volume depletion from NPO status/IV diuresis pre op And perioperative blood loss. Status post 2 unit PRBC, hemoglobin is stable. Status post bolus IV fluid, continue with gentle IV hydration. Blood pressure slowly improving, patient with no chest pain/palpitation/dizziness. A-fib RVR likely in the setting of volume depletion, expect to improve with improvement in volume status. Cardiology on board, appreciate recommendation. TIFFANY over CKD Stage III: Baseline Cr ~1.7-1.8 per chart review. Cr jumped to 2.82 on 05/27. Likely prerenal secondary to postoperative hypotension. See above. Torsemide on hold, continue with gentle IV fluid, nephrology consult given complex patient/pulmonary edema on x-ray imaging. Avoid nephrotoxic medications when able. Monitor renal function closely with AM labs. d/w nephro, plan to hold further IVF, c/t hold diuretics. Mild Transaminitis: AST 49 and Alk Phos 230 on admission. Pt with recent LFT elevation and intermittent elevation in past - suspect possible induced by recent viral illness, also on statin Repeat LFT in AM. RADHA, Nocturnal Hypoxia: Continue baseline 2L O2 HS. Persistent AFib S/P Watchman Procedure: SSS s/p PPM hx of LV thrombus Continue metoprolol succinate and aspirin therapy. Pre operatively was rate controlled but does appear to have been in afib since February Continuous cardiac monitoring in place, metoprolol with hold parameters. She has been off eliquis since March and on ASA only Consult cardiology Dr. Chavarria - he is aware of consult and pt well known to him, appreciate cardiology recs She did receive dose of IV digoxin overnight Will keep Mag and K > 2.0 and 4.0 respectively Iron Def Anemia Anemia 2/2 Chronic GI Losses follow hemoglobin closely, on ASA therapy only iron panel with low iron at 17 and T sat at 9% . s/p 2 unit prbc this admission. Will likely need iron supplement on DC. Repeat Iron profile study in 3 months. Asthma/COPD: Can continue home medications. No acute exacerbation DM Type II: Diet-controlled. A1c was 6.9% on 03/24/24. Hold off on SSI for now. BSG checks ACHS. Monitor BSG. Chronic Diarrhea son reports this has improved since being off eliquis monitor Hypothyroidism: TSh fluctuating as outpt, in February was 24 and April 0.68. Will repeat TSH/T4 in a.m., continue current dose Other Chronic Medical Conditions: HLD, gout, GERD and depression --> Can continue home medications for these specific conditions. DVT Prophylaxis: aspirin bid. teds. scds Code Status: DNR/DNI PCP: Florentin Calvo, Disposition: Pt not yet medically stable for discharge, pts volume status needs to be optimized, she will need rehab. Discussed with pts daughter at bedside. She was updated regarding current treatment plan total time spent: 55 min. son jose was updated over the phone. Admission and Anticipated Discharge Date Admission Date: May 24, 2024 Subjective Patient was seen and examined at bedside. Patient was lying in bed, on room air, NAD, resting comfortably. Patient reports feeling better today, reports pain under control at operative site. Patient denies shortness of breath or chest pain. Blood pressure slowly improving, status post 2 unit blood transfusion, hemoglobin finally stable. Physical Exam Physical Exam: Gen: WD/WN, F, NAD, elderly, KIPNUK, A&O x3 HEENT: Normocephalic, atraumatic, conjunctivae moist, sclerae anicteric, mucous membranes moist. Lung: Clear to Auscultation bilaterally, no wheezes/rales/rhonchi Heart: IRR/IRR, 1/6 SUE, rubs, or gallops Abdomen: Soft, NT, ND +BS x 4 Extremities: No edema, RLE dressing CDI Skin: Warm, no rash, negative turgor. Results & Data Results & Data Vital Signs (Past 12 Hours) Vital Signs Temp Pulse Pulse Pulse Resp BP BP 05/27/24 11:30 36.7 C 96 H 93 H 18 94/62 L 05/27/24 08:00 36.9 C 98 H 18 96/65 L 05/27/24 02:53 36.7 C 81 16 85/51 L 05/27/24 02:24 36.7 C 83 16 85/47 L Pulse Ox O2 Del Method O2 Flow Rate 05/27/24 11:30 96 Nasal Cannula 2 05/27/24 08:00 97 Nasal Cannula 2 05/27/24 02:53 95 2 05/27/24 02:24 98 2 (1) Fracture of right femur Encounter type: initial encounter Femur location: unspecified portion of femur Fracture type: closed Fracture morphology: unspecified fracture morphology Qualified Code(s): S72.91XA - Unspecified fracture of right femur, initial encounter for closed fracture
[2024-05-27] MEDS: ACETAMINOPHEN 325 MG TAB PO PRN (16:58)
[2024-05-28 07:15] LABS: Hematocrit (blood only) 27.5 % (37.0-47.0); Hemoglobin 9.3 g/dl (12.0-16.0); Mean Corpuscular Hemoglobin 30.3 pg (25.0-34.0); Mean Corpuscular Hgb Conc 33.8 g/dL (32.0-36.0); Mean Corpuscular Volume 89.6 fL (80.0-100.0); Mean Platelet Volume 11.4 fL (9.4-12.4); Nucleated RBC # (auto) 0.07 K/uL (0.00-0.12); Nucleated RBC % (auto) 0.6 %; Platelet Count 157 K/uL (130-400); RDW Coefficient of Variation 16.8 % (11.5-14.5); RDW Standard Deviation 54.3 fL (36.4-46.3); Red Blood Count 3.07 M/uL (4.20-5.40)
[2024-05-28 07:30] LABS: Albumin Level 3.2 gm/dl (3.4-5.0); BUN Creatinine Ratio 15.5 (10-20); Bilirubin Direct 0.2 mg/dl (0-0.2); Bilirubin,Total 0.5 mg/dl (0.2-1.0); Calcium 8.8 mg/dl (8.6-10.3); Magnesium 2.2 mg/dl (1.7-2.4); Phosphorus 3.7 mg/dl (2.5-4.9); Potassium 4.8 mmol/L (3.5-5.1); Total Protein 5.5 gm/dl (6.0-8.3)
--- NOTE | 2024-05-28 09:13 | Orthopedic Progress Note ---
Date of Service May 28, 2024 Assessment & Plan (1) Closed intertrochanteric fracture of right hip: Plan: 83-year-old female now 3 days out from IM nailing of the right inner troches fracture. Orthopedically she is to be doing pretty well. Pains seem to be i mproving. Plan: 1. DVT prophylaxis including thigh-high teds, SCDs, would recommend aspirin twice a day for 6 weeks. 2. PT/OT. She can fully weight-bear as tolerated in right leg. 3. Pain control doing okay with current pain regimen. 4. Medical management as per the medicine service. She got multiple medical issues. 5. Disposition she is orthopedically okay for discharge anytime medically stable. I need to see her back 2 to 3 weeks out from surgery date. Admission and Anticipated Discharge Date Admission Date: May 24, 2024 Subjective 83-year-old female postop day 3 from IM nail of the right inotrope fracture. That she is doing pretty well. Pain seems a little bit better this morning. No new complaints. Denies any chest pain shortness of breath. Physical Exam Physical Exam: Physical exam shows a pleasant elderly female patient lying bed looks pretty comfortable this morning. Examination of the right leg reveals to be well aligned. Dressings clean dry and intact. Thigh is soft and supple. She is neurologically intact. Results & Data Vital Signs (Past 12 Hours) Vital Signs Temp Pulse Pulse Pulse Resp BP Pulse Ox 05/28/24 08:09 36.6 C 72 18 107/61 05/28/24 07:50 87 05/28/24 07:50 05/28/24 02:49 36.6 C 90 20 95/60 L 96 05/28/24 01:57 05/27/24 23:30 86 05/27/24 23:20 36.8 C 87 20 97/59 L 94 05/27/24 23:00 05/27/24 22:47 O2 Del Method 05/28/24 08:09 Room Air 05/28/24 07:50 05/28/24 07:50 Room Air 05/28/24 02:49 Room Air 05/28/24 01:57 Room Air 05/27/24 23:30 05/27/24 23:20 Room Air 05/27/24 23:00 Room Air 05/27/24 22:47 Room Air Laboratory Results Hemoglobin is 9.3. MAC is 27.5.
--- NOTE | 2024-05-28 10:19 | Nephrology Consultation ---
Date of Consultation May 28, 2024 Assessment & Plan (1) TIFFANY (acute kidney injury): TIFFANY which happened after hospital admission on background CKD 3B ( baseline creat around 1.4) from DM and other medical issues she has. TIFFANY is from classic ATN. This happened around 05/25 and 05/26 in the perioperative period with super low BP and Low Hgb in a very susceptible elderly female with pre existing CKD and many comorbid Dz. Still has e/o volume overload. BP is still on low side but somewhat better. On Room air. Will hold off on Diuretics for now. no IVF. If her BP gets lower do add some IVF gently. has dang so do need to measure I and O carefully. urine output was only 300 ml yesterday ? Seems slightly more since this AM but will need to follow. Son was present at bedside. I discussed with both patient and Son about the condition. Also that if her renal function continues to get worse for next 4 8--72 hrs we will have to discuss about dialysis also. Hopefully will see some renal recovery. (2) Chronic renal failure (CRF), stage 3b: baseline around 1.4 but had recent TIFFANY. Susceptible to TIFFANY because of many Dz she has. (3) Closed intertrochanteric fracture of right hip: S/p surgery 05/25 with perioperative Severe anemia and low BP Plan time spent 62 minutes. discussed with patient as well as her son at the bedside about the disease prognosis and possible need of dialysis if kidney function continues to get worse. management plan discussed with hospitalist service and in agreement History of Present Illness Reason for Consultation: TIFFANY on background CKD Requesting Physician: Dr. Herrera Attending Physician: Deepa Herrera MD History of Present Illness 83/F with CKD 3B recent h/o TIFFANY, DM type II, secondary hyperparathyroidism, diabetic retinopathy, CKD stage III, hypothyroidism, polyneuropathy, PVD, HLD, RADHA, moderate persistent asthma, nocturnal hypoxemia, COPD, paroxysmal atrial fibrillation s/p Watchman procedure, sick sinus syndrome s/p pacemaker placement, pulmonary hypertension, chronic diastolic CHF, left carotid artery aneurysm, aortic atherosclerosis, severe tricuspid regurgitation, s/p mitral valve clip for severe mitral regurgitation, GERD, sigmoid diverticulosis, Mnire's disease, anemia, history of TIA, history of endometrial cancer and depression who presented to the ED via EMS after sustaining a fall at home. admitted on May 24. CXR showed Pulm edema and she got some Iv BUmex. She had fracture of femur and had surgery 05/25. On 05/26 her BP was very low for long time and also low hgb of < 7. Then creat started rising. 1.4 on Admission ( baseline) and then 1.8 and 2.8 and today 3.1. Still has lot of edema. Diuretics stopped from 05/26. Also got a little bit if IVF. BP is not super low anymore. hgb better at 9.4. urine output is low at 300 ml yesterday. ROS--Pain in lot of places. weakness. 12 Systems otherwise negative Physical Exam Constitutional: Ill appearing; no acute distress. Normal speech. Room air Eyes: PERRL, conjunctivae normal, anicteric sclerae Neck: Supple. No JVD Respiratory: normal respiratory effort, lungs with Diminished BS at bases Cardiovascular: Rate/Rhythm: + irregularly irregular Heart Sounds: + murmur Vessels: no JVD Extremities: + 1 edema Gastrointestinal (Abdomen): soft, nontender Allergies Allergy/AdvReac Type Severity Reaction Status Date / Time Sulfa (Sulfonamide Allergy Severe Severe Verified 04/13/24 00:16 Antibiotics) rxn: rash and hives celecoxib Allergy Intermediate Rash/Hives/ Verified 04/13/24 00:16 Itching. cephalexin Allergy Intermediate Rash/Hives/ Verified 04/13/24 00:16 Itching. furosemide Allergy Intermediate Rash/Hives/ Verified 04/13/24 00:16 Itching. gabapentin Allergy Intermediate Rash/Hives/ Verified 04/13/24 00:16 Itching. pregabalin Allergy Intermediate Rash/Hives/ Verified 04/13/24 00:16 Itching. meclizine Allergy Unknown Unknown Verified 04/13/24 00:16 methylprednisolone Allergy Unknown Rash/Hives/ Verified 04/13/24 00:16 Itching. Penicillins Allergy Unknown Unknown. Verified 04/13/24 00:16 prednisone Allergy Unknown Rash/Hives/ Verified 04/13/24 00:16 Itching. vancomycin Allergy Unknown Jodi Verified 04/13/24 00:16 syn. . nickel Allergy Unknown Verified 04/13/24 00:16 dexamethasone AdvReac Intermediate Steroid Verified 04/13/24 00:16 psychosis. Home Medications Medication Instructions Recorded Confirmed Type montelukast 10 mg tablet 10 mg PO PM 04/08/19 05/24/24 History atorvastatin 20 mg tablet 20 mg PO QAM 11/26/21 05/24/24 History cholecalciferol (vitamin D3) 50 100 mcg PO QAM 11/26/21 05/24/24 History mcg (2,000 unit) capsule (Vitamin D3) levalbuterol tartrate 45 1 puff inhalation Q4H PRN 08/07/22 05/24/24 History mcg/actuation aerosol inhaler Shortness Of Breath (Xopenex HFA) sertraline 100 mg tablet 150 mg PO QAM 08/07/22 05/24/24 History tiotropium 2.5 mcg-olodaterol 2.5 2 puff inhalation QAM 11/07/22 05/24/24 History mcg/actuation mist for inhalation (Stiolto Respimat) torsemide 10 mg tablet 20 mg PO QAM 11/07/22 05/24/24 History ipratropium bromide 21 mcg (0.03 2 spray intranasal DAILY PRN 12/06/22 05/24/24 History %) nasal spray rhinorrhea pantoprazole 40 mg tablet,delayed 40 mg PO BID #60 tabs 12/09/22 05/24/24 Rx release allopurinol 300 mg tablet 300 mg PO HS 08/14/23 05/24/24 History metoprolol succinate 25 mg 25 mg PO BID #60 tabs 10/22/23 05/24/24 Rx tablet,extended release 24 hr diphenoxylate-atropine 2.5 1 tab PO BID PRN Diarrhea 03/07/24 05/24/24 History mg-0.025 mg tablet levothyroxine 175 mcg tablet 175 mcg PO DAILYBB 03/21/24 05/24/24 History fentanyl 12 mcg/hr transdermal 12 mcg transdermal Q3D 03/23/24 05/24/24 History patch aspirin 81 mg tablet,delayed 81 mg PO QAM #30 tabs 03/25/24 05/24/24 Rx release oxycodone 5 mg tablet 5 mg PO QID PRN pain severe #35 03/25/24 05/24/24 Rx tabs acetaminophen 500 mg tablet 1,000 mg PO Q6H PRN Pain 04/13/24 05/24/24 History (Tylenol Extra Strength) benzonatate 100 mg capsule 100 mg PO Q6H PRN cough #20 caps 04/15/24 05/24/24 Rx guaifenesin 600 mg tablet, 600 mg PO Q12 PRN cough #20 tabs 04/15/24 05/24/24 Rx extended release 12 hr (Mucinex) buspirone 5 mg tablet 5 mg PO AMHS 05/13/24 05/24/24 History ondansetron HCl 4 mg tablet 4 mg PO UD PRN Nausea And Vomiting 05/13/24 05/24/24 History Patient History Medical History Generalized weakness Pericardial effusion Low back pain Angio-edema Nausea Leukocytosis Near syncope Hypotension Dehydration TIFFANY (acute kidney injury) Near syncope Elevated brain natriuretic peptide (BNP) level Pneumonia Atrial flutter Carotid artery aneurysm Prolonged QT interval Atrial fibrillation with RVR DM type 2 (diabetes mellitus, type 2) Encounter for pre-operative examination Cholelithiasis Cholecystitis Chest pain at rest Pulmonary emphysema Osteoarthritis of right knee HTN (hypertension) Surgical History History of hysterectomy History of cholecystectomy Family History Father Diabetes Social History Smoking Status: Never smoker Tobacco Type: Cigarettes packs per day: 1.5; Cigarettes Per Day: 30; Second Hand Exposure: No; Do You Dip or Chew Tobacco: No; Hx Alcohol Use: No Hx Substance Use: No Preferred Language: Argentine Communication Ability: Effective Clinical Nurse Occupational Medicine Required: No Beliefs That Will Affect Care: None marital status: Current Living Situation: Spouse Feels Safe at Home: Yes Assistive Devices: Glasses, Oxygen - at Night and Walker Results & Data Vital Signs (Past 12 Hours) Vital Signs Temp Pulse Pulse Pulse Resp BP Pulse Ox 05/28/24 10:00 36.8 C 96 H 16 100/60 91 05/28/24 08:09 36.6 C 72 18 107/61 05/28/24 07:50 87 05/28/24 07:50 05/28/24 02:49 36.6 C 90 20 95/60 L 96 05/28/24 01:57 05/27/24 23:30 86 05/27/24 23:20 36.8 C 87 20 97/59 L 94 05/27/24 23:00 05/27/24 22:47 O2 Del Method 05/28/24 10:00 Room Air 05/28/24 08:09 Room Air 05/28/24 07:50 05/28/24 07:50 Room Air 05/28/24 02:49 Room Air 05/28/24 01:57 Room Air 05/27/24 23:30 05/27/24 23:20 Room Air 05/27/24 23:00 Room Air 05/27/24 22:47 Room Air Laboratory Results reviewed CBC, renal panel, CXR and CT abdomen. Inpt and outpt
--- NOTE | 2024-05-28 11:25 | Cardiology Progress Note ---
Date of Service May 28, 2024 Assessment & Plan (1) Persistent atrial fibrillation with rapid ventricular response: (2) Fall: (3) Closed intertrochanteric fracture of right hip: (4) TIFFANY (acute kidney injury): (5) S/P mitral valve clip implantation: (6) Presence of Watchman left atrial appendage closure device: (7) Chronic diastolic (congestive) heart failure: (8) Cardiac pacemaker in situ: Plan Patient is an 83-year-old female with complex underlying cardiac disease which includes persistent atrial fibrillation, chronic diastolic/valvular heart failure with prior mitral valve clip for severe mitral insufficiency. Recent hospitalizations for weakness and fatigue possible post-COVID, acute renal Hospitalized this admission following mechanical fall and right hip fracture Heart rates elevated postoperatively multifactorial including pain, volume loss and anemia Recommendations treat underlying concerns agree with gentle hydration. Continue metoprolol succinate May require transfusion Cardiology will follow 05/27/2024 Events of evening last night noted. Patient currently stable Elevated heart rate secondary to a lapse in beta-caridad therapy. Partially mandated secondary to hypotension Increasing renal insufficiency this morning hemoglobins have improved with transfusion Diuretics remain on hold appropriately though I suspect will need to resume relatively shortly. Would recommend renal consult Issues are as noted 1. Persistent atrial fibrillation with elevated ventricular rates: Heart rate trending towards better control with the use of usual metoprolol. Initial elevation driven by anemia, pain, hypotension. Watchman device in place 2. Acute on chronic renal insufficiency likely secondary to hypotension and prerenal azotemia: Recommend nephrology assistance 3. Heart failure with preserved ejection fraction secondary to diastolic dysfunction, valvular heart disease pulmonary hypertension: No signs of acute volume overload though diuretics have been on hold will follow close 05/28/2024 No cardiac complaints. Heart rates controlled Blood pressure improved but still marginal No profound volume overload but patient oliguric with declining renal function Appreciate nephrology input and agree Admission and Anticipated Discharge Date Admission Date: May 24, 2024 Subjective Patient seen and examined, chart, medications, telemetry reviewed Patient without acute complaint Does not examine with significant volume overload at this point in time. No chest pain or shortness of breath Participating in physical therapy Review of Systems Review of Systems: All systems reviewed & are unremarkable except as noted in Subjective Physical Exam Constitutional: + thin and + frail appearing; no acute d istress Eyes: PERRL, conjunctivae normal, anicteric sclerae Neck: trachea midline, no thyromegaly Respiratory: normal respiratory effort, lungs clear to auscultation Cardiovascular: Rate/Rhythm: + irregularly irregular Heart Sounds: + murmur Vessels: no JVD Extremities: + edema (Trace edema with chronic stasis change) Gastrointestinal (Abdomen): normal bowel sounds, soft, nontender, no hepatosplenomegaly Inspection/Auscultation: + abdomen distended (Mild) Results & Data Vital Signs (Past 12 Hours) Vital Signs Temp Pulse Pulse Pulse Resp BP Pulse Ox 05/28/24 10:00 36.8 C 96 H 16 100/60 91 05/28/24 08:09 36.6 C 72 18 107/61 05/28/24 07:50 87 05/28/24 07:50 05/28/24 02:49 36.6 C 90 20 95/60 L 96 05/28/24 01:57 05/27/24 23:30 86 O2 Del Method 05/28/24 10:00 Room Air 05/28/24 08:09 Room Air 05/28/24 07:50 05/28/24 07:50 Room Air 05/28/24 02:49 Room Air 05/28/24 01:57 Room Air 05/27/24 23:30 Laboratory Results Laboratory Results - last 24 hr 05/27/24 05/27/24 05/28/24 13:01 20:11 06:26 WBC 12.50 H RBC 3.07 L Hgb 9.4 L 9.3 L Hct 28.8 L 27.5 L MCV 89.6 MCH 30.3 MCHC 33.8 RDW Std Deviation 54.3 H RDW Coeff of Francisco Javier 16.8 H Plt Count 157 MPV 11.4 Absolute Nucleated RBC 0.07 Nucleated RBC % (auto) 0.6 Sodium 132 L Potassium 4.8 Chloride 100 Carbon Dioxide 23 Anion Gap 9 BUN 48 H Creatinine 3.09 H Est Cr Clr Drug Dosing 14.0 eGFR 14.44 BUN/Creatinine Ratio 15.5 Glucose 111 H POC Glucose 199 H Calcium 8.8 Phosphorus 3.7 Magnesium 2.2 Total Bilirubin 0.5 Direct Bilirubin 0.2 AST 33 ALT 3 L Alkaline Phosphatase 159 H Total Protein 5.5 L Albumin 3.2 L 05/28/24 07:48 WBC RBC Hgb Hct MCV MCH MCHC RDW Std Deviation RDW Coeff of Francisco Javier Plt Count MPV Absolute Nucleated RBC Nucleated RBC % (auto) Sodium Potassium Chloride Carbon Dioxide Anion Gap BUN Creatinine Est Cr Clr Drug Dosing eGFR BUN/Creatinine Ratio Glucose POC Glucose 98 Calcium Phosphorus Magnesium Total Bilirubin Direct Bilirubin AST ALT Alkaline Phosphatase Total Protein Albumin
--- NOTE | 2024-05-28 11:38 | XRay Report ---
TWO VIEW CHEST CLINICAL HISTORY: Follow-up congestive failure. FINDINGS: AP and lateral chest radiographs are compared to study dated 05/24/2024. A 2-lead cardiac pa cemaker is unchanged in position. An atrial appendage device is in place. The heart is enlarged notin g atherosclerotic calcification of the thoracic aorta. There is pulmonary vascular congestion with mi ld interstitial edema. There are small pleural effusions with dependent consolidation. There is no pn eumothorax. The skeletal structures are osteopenic. A compression deformity is seen at the thoracolum bar junction. Fusion hardware is noted in the lower cervical spine. Degenerative change is noted in t he shoulders and thoracic spine. Cholecystectomy clips are seen in the right upper quadrant. IMPRESSION: 1. Cardiomegaly with evidence of congestive failure and mild pulmonary edema. This is similar to 05/24. 2. Small pleural effusions with dependent consolidation ACT 112: Negative or not required by law. Electronically signed by: Jay Sandoval M.D. 05/28/2024 11:37 AM
[2024-05-28] MEDS: CYANOCOBALAMIN (B-12) 500 MCG TABLET PO SCH (13:24)
--- NOTE | 2024-05-28 14:29 | Hospitalist Progress Note ---
Date of Service May 28, 2024 Assessment & Plan (1) Fracture of right femur: Plan Inga Barakat is an 83y/o F with PMHx significant for DM type II, secondary hyperparathyroidism, diabetic retinopathy, CKD stage III, hypothyroidism, polyneuropathy, PVD, HLD, RADHA on 2L of O2 via NC, moderate persistent asthma, nocturnal hypoxemia, COPD, paroxysmal atrial fibrillation s/p Watchman procedure, sick sinus syndrome s/p pacemaker placement, pulmonary hypertension, chronic diastolic CHF, left carotid artery aneurysm, aortic atherosclerosis, severe tricuspid regurgitation, s/p mitral valve clip for severe mitral regurgitation, GERD, sigmoid diverticulosis, Mnire's disease, anemia, history of TIA, history of endometrial cancer and depression who presented to the ED via EMS after sustaining a fall at home and was found to have an acute displaced an gulated intertrochanteric fracture of the right femur. She is being managed for the following: Right Femur Fracture S/P Fall: R hip XR shows an acute displaced angulated intertrochanteric fracture of the R femur. 05/25/24 -- R hip intertrochanteric IM Nail Smith cath, PT/OT evals post operatively pt has chronic diarrhea will monitor this while on narcotics Aspirin 81 mg twice daily for DVT prophylaxis. f/u ortho on dc Chronic Diastolic CHF Severe Tricuspid Regurgitation Hx of severe mitral regurg s/p Mitral Clip Pre operatively pt examined as mildly volume overloaded, Received a dose of Bumex 1 mg IV, postoperatively noted to be dry and hypovolemic and had hypotension. Received blood transfusion, getting gentle IV fluid, torsemide on hold, monitor volume status closely. daily weight, Strict I and O Post Operative Hypotension & Afib w/ RVR suspect in setting of volume depletion from NPO status/IV diuresis pre op And perioperative blood loss. Status post 2 unit PRBC, hemoglobin is stable. Status post bolus IV fluid, continue with gentle IV hydration. Blood pressure slowly improving, patient with no chest pain/palpitation/dizziness. A-fib RVR likely in the setting of volume depletion, expect to improve with improvement in volume status. Cardiology on board, appreciate recommendation. TIFFANY over CKD Stage III: Baseline Cr ~1.7-1.8 per chart review. Cr jumped to 2.82 on 05/27. Likely prerenal secondary to postoperative hypotension. See above. Torsemide on hold, nephro on board, appreciate recs. Avoid nephrotoxic medications when able. Monitor renal function closely with AM labs. Mild Transaminitis: AST 49 and Alk Phos 230 on admission. Pt with recent LFT elevation and intermittent elevation in past - suspect possible induced by recent viral illness, also on statin Repeat LFT in AM. RADHA, Nocturnal Hypoxia: Continue baseline 2L O2 HS. Persistent AFib S/P Watchman Procedure: SSS s/p PPM hx of LV thrombus Continue metoprolol succinate and aspirin therapy. Pre operatively was rate controlled but does appear to have been in afib since February Continuous cardiac monitoring in place, metoprolol with hold parameters. She has been off eliquis since March and on ASA only Consult cardiology Dr. Chavarria - he is aware of consult and pt well known to him, appreciate cardiology recs She did receive dose of IV digoxin overnight Will keep Mag and K > 2.0 and 4.0 respectively Iron Def Anemia Anemia 2/2 Chronic GI Losses follow hemoglobin closely, on ASA therapy only iron panel with low iron at 17 and T sat at 9% . s/p 2 unit prbc this admission. Will likely need iron supplement on DC. Repeat Iron profile study in 3 months. Asthma/COPD: Can continue home medications. No acute exacerbation DM Type II: Diet-controlled. A1c was 6.9% on 03/24/24. Hold off on SSI for now. BSG checks ACHS. Monitor BSG. Chronic Diarrhea son reports this has improved since being off eliquis monitor Hypothyroidism: TSh fluctuating as outpt, in February was 24 and April 0.68. Will repeat TSH/T4 in a.m., continue current dose Other Chronic Medical Conditions: HLD, gout, GERD and depression --> Can continue home medications for these specific conditions. DVT Prophylaxis: aspirin bid. teds. scds Code Status: DNR/DNI PCP: Florentin Calvo, Disposition: Pt not yet medically stable for discharge, pts volume status needs to be optimized, she will need rehab. Discussed with pts daughter at bedside. She was updated regarding current treatment plan total time spent: 55 min. son jose was updated at bedside. Admission and Anticipated Discharge Date Admission Date: May 24, 2024 Subjective Patient was seen and examined at bedside. Patient was lying in bed, on room air, NAD, resting comfortably. Patient reports feeling better, reports pain under control at operative site. Patient denies shortness of breath or chest pain. Blood soft but stable. Pt complained of swallowing difficulty ongoing for several months, brought to my attention last evening and today. Spoke w/ speech, likely functional dysphagia, appreciate eval and recs. Bunk House Worker consult placed due pt's pickiness w/ food items affecting her po intake. Physical Exam Physical Exam: Gen: WD/WN, F, NAD, elderly, CAMPO, A&O x3 HEENT: Normocephalic, atraumatic, conjunctivae moist, sclerae anicteric, mucous membranes moist. Lung: Clear to Auscultation bilaterally, no wheezes/rales/rhonchi Heart: IRR/IRR, 1/6 SUE, rubs, or gallops Abdomen: Soft, NT, ND +BS x 4 Extremities: No edema, RLE dressing CDI Skin: Warm, no rash, negative turgor. Results & Data Results & Data Vital Signs (Past 12 Hours) Vital Signs Temp Pulse Pulse Pulse Resp BP Pulse Ox 05/28/24 11:29 36.6 C 84 18 92/55 L 94 05/28/24 10:00 36.8 C 96 H 16 100/60 91 05/28/24 08:09 36.6 C 72 18 107/61 05/28/24 07:50 87 05/28/24 07:50 05/28/24 02:49 36.6 C 90 20 95/60 L 96 O2 Del Method 05/28/24 11:29 Room Air 05/28/24 10:00 Room Air 05/28/24 08:09 Room Air 05/28/24 07:50 05/28/24 07:50 Room Air 05/28/24 02:49 Room Air (1) Fracture of right femur Encounter type: initial encounter Femur location: unspecified portion of femur Fracture morphology: unspecified fracture morphology Fracture type: closed Qualified Code(s): S72.91XA - Unspecified fracture of right femur, initial encounter for closed fracture
[2024-05-29 06:31] LABS: Hematocrit (blood only) 27.7 % (37.0-47.0); Hemoglobin 9.4 g/dl (12.0-16.0); Mean Corpuscular Hemoglobin 30.5 pg (25.0-34.0); Mean Corpuscular Hgb Conc 33.9 g/dL (32.0-36.0); Mean Corpuscular Volume 89.9 fL (80.0-100.0); Mean Platelet Volume 10.9 fL (9.4-12.4); Nucleated RBC # (auto) 0.06 K/uL (0.00-0.12); Nucleated RBC % (auto) 0.6 %; Platelet Count 175 K/uL (130-400); RDW Standard Deviation 54.7 fL (36.4-46.3); Red Blood Count 3.08 M/uL (4.20-5.40); White Blood Count 9.86 K/ul (4.8-10.8)
[2024-05-29 06:56] LABS: BUN Creatinine Ratio 20.4 (10-20); Calcium 8.7 mg/dl (8.6-10.3); Creatinine Clr Calc Pharmacy 17.3 ml/min; Potassium 4.3 mmol/L (3.5-5.1)
--- NOTE | 2024-05-29 13:20 | Nephrology Progress Note ---
Date of Service May 29, 2024 Assessment & Plan Admission and Anticipated Discharge Date Admission Date: May 24, 2024 Subjective Assessment & Plan (1) MEE (acute kidney injury): MEE which happened after hospital admission on background CKD 3B ( baseline creat around 1.4) from DM and other medical issues she has. MEE is from classic ATN. This happened around 05/25 and 05/26 in the perioperative period with super low BP and Low Hgb in a very susceptible elderly female with pre existing CKD and many comorbid Dz. Still has some e/o volume overload. CXR done 05/28 still shows Pulm edema and CHF. But she is On Room air. Will hold off on Diuretics for now. no IVF. has dang so do need to measure I and O carefully. urine output was only 300 ml yesterday ? Seems slightly more since this AM but will need to follow. Mee is better today with creat downtrending. urine is good. Continue current manage,ment (2) Chronic renal failure (CRF), stage 3b: baseline around 1.4 but had recent MEE. Susceptible to MEE because of many Dz she has. (3) Closed intertrochanteric fracture of right hip: S/p surgery 05/25 with perioperative Severe anemia and low BP S---Still on RA. NO major Distress. BP is better. Labs better ROS--Pain in lot of places. weakness. 12 Systems otherwise negative Physical Exam Constitutional: Ill appearing; no acute distress. Normal speech. Room air Eyes: PERRL, conjunctivae normal, anicteric sclerae Neck: Supple. No JVD Respiratory: normal respiratory effort, lungs with Diminished BS at bases Cardiovascular: Rate/Rhythm: + irregularly irregular Heart Sounds: + murmur Vessels: no JVD Extremities: + 1 edema Gastrointestinal (Abdomen): soft, nontender Results & Data Vital Signs (Past 12 Hours) Vital Signs Temp Pulse Pulse Pulse Resp BP Pulse Ox 05/29/24 11:49 36.4 C L 101 H 18 116/73 93 05/29/24 07:45 101 H 05/29/24 07:45 05/29/24 07:41 36.4 C L 89 18 118/72 93 05/29/24 03:29 36.7 C 115 H 18 108/67 93 O2 Del Method 05/29/24 11:49 Room Air 05/29/24 07:45 05/29/24 07:45 Room Air 05/29/24 07:41 Room Air 05/29/24 03:29 Room Air
--- NOTE | 2024-05-29 16:20 | Hospitalist Progress Note ---
Date of Service May 29, 2024 Assessment & Plan (1) Fracture of right femur: Plan Inga Barakat is an 83y/o F with PMHx significant for DM type II, secondary hyperparathyroidism, diabetic retinopathy, CKD stage III, hypothyroidism, polyneuropathy, PVD, HLD, RADHA on 2L of O2 via NC, moderate persistent asthma, nocturnal hypoxemia, COPD, paroxysmal atrial fibrillation s/p Watchman procedure, sick sinus syndrome s/p pacemaker placement, pulmonary hypertension, chronic diastolic CHF, left carotid artery aneurysm, aortic atherosclerosis, severe tricuspid regurgitation, s/p mitral valve clip for severe mitral regurgitation, GERD, sigmoid diverticulosis, Mnire's disease, anemia, history of TIA, history of endometrial cancer and depression who presented to the ED via EMS after sustaining a fall at home and was found to have an acute displaced an gulated intertrochanteric fracture of the right femur. She is being managed for the following: Right Femur Fracture S/P Fall: R hip XR shows an acute displaced angulated intertrochanteric fracture of the R femur. 05/25/24 -- R hip intertrochanteric IM Nail Smith cath, PT/OT evals post operatively pt has chronic diarrhea will monitor this while on narcotics Aspirin 81 mg twice daily for DVT prophylaxis. f/u ortho on dc Chronic Diastolic CHF Severe Tricuspid Regurgitation Hx of severe mitral regurg s/p Mitral Clip Pre operatively pt examined as mildly volume overloaded, Received a dose of Bumex 1 mg IV, postoperatively noted to be dry and hypovolemic and had hypotension. Received blood transfusion, s/p IV fluid, torsemide on hold, monitor volume status closely. daily weight, Strict I and O Post Operative Hypotension & Afib w/ RVR suspect in setting of volume depletion from NPO status/IV diuresis pre op And perioperative blood loss. Status post 2 unit PRBC, hemoglobin is stable. Status post bolus IV fluid, continue with gentle IV hydration. Blood pressure slowly improving, patient with no chest pain/palpitation/dizziness. A-fib RVR likely in the setting of volume depletion, expect to improve with improvement in volume status. Cardiology on board, appreciate recommendation. TIFFANY over CKD Stage III: Baseline Cr ~1.7-1.8 per chart review. Cr jumped to 2.82 on 05/27. Likely prerenal secondary to postoperative hypotension. See above. Torsemide on hold, nephro on board, appreciate recs. Avoid nephrotoxic medications when able. Monitor renal function closely with AM labs. Cr improving. Mild Transaminitis: AST 49 and Alk Phos 230 on admission. Pt with recent LFT elevation and intermittent elevation in past - suspect possible induced by recent viral illness, also on statin Repeat LFT in AM. RADHA, Nocturnal Hypoxia: Continue baseline 2L O2 HS. Persistent AFib S/P Watchman Procedure: SSS s/p PPM hx of LV thrombus Continue metoprolol succinate and aspirin therapy. Pre operatively was rate controlled but does appear to have been in afib since February Continuous cardiac monitoring in place, metoprolol with hold parameters. She has been off eliquis since March and on ASA only Consult cardiology Dr. Chavarria - he is aware of consult and pt well known to him, appreciate cardiology recs She did receive dose of IV digoxin overnight Will keep Mag and K > 2.0 and 4.0 respectively Iron Def Anemia Anemia 2/2 Chronic GI Losses follow hemoglobin closely, on ASA therapy only iron panel with low iron at 17 and T sat at 9% . s/p 2 unit prbc this admission. Will likely need iron supplement on DC. Repeat Iron profile study in 3 months. Asthma/COPD: Can continue home medications. No acute exacerbation DM Type II: Diet-controlled. A1c was 6.9% on 03/24/24. Hold off on SSI for now. BSG checks ACHS. Monitor BSG. Chronic Diarrhea son reports this has improved since being off eliquis monitor Hypothyroidism: TSh fluctuating as outpt, in February was 24 and April 0.68. Will repeat TSH/T4 in a.m., continue current dose Other Chronic Medical Conditions: HLD, gout, GERD and depression --> Can continue home medications for these specific conditions. DVT Prophylaxis: aspirin bid. teds. scds Code Status: DNR/DNI PCP: Florentin Calvo, Disposition: pending renal fxn improvement, she will need rehab. Admission and Anticipated Discharge Date Admission Date: May 24, 2024 Subjective Patient was seen and examined at bedside. Patient was lying in bed, on room air, NAD, resting comfortably. Patient reports feeling better, reports pain under control at operative site. Patient denies shortness of breath or chest pain. Per RN patient is eating better. Physical Exam Physical Exam: Gen: WD/WN, F, NAD, elderly, [place], A&O x3 HEENT: Normocephalic, atraumatic, conjunctivae moist, sclerae anicteric, mucous membranes moist. Lung: Clear to Auscultation bilaterally, no wheezes/rales/rhonchi Heart: IRR/IRR, 1/6 SUE, rubs, or gallops Abdomen: Soft, NT, ND +BS x 4 Extremities: No edema, RLE dressing CDI Skin: Warm, no rash, negative turgor. Results & Data Results & Data Vital Signs (Past 12 Hours) Vital Signs Temp Pulse Pulse Pulse Pulse Resp BP 05/29/24 16:14 85 05/29/24 15:36 36.7 C 87 87 16 110/63 05/29/24 11:49 36.4 C L 101 H 18 116/73 05/29/24 07:45 101 H 05/29/24 07:45 05/29/24 07:41 36.4 C L 89 18 118/72 Pulse Ox O2 Del Method 05/29/24 16:14 05/29/24 15:36 94 Room Air 05/29/24 11:49 93 Room Air 05/29/24 07:45 05/29/24 07:45 Room Air 05/29/24 07:41 93 Room Air (1) Fracture of right femur Encounter type: initial encounter Femur location: unspecified portion of femur Fracture type: closed Fracture morphology: unspecified fracture morphology Qualified Code(s): S72.91XA - Unspecified fracture of right femur, initial encounter for closed fracture
[2024-05-30 02:09] LABS: Appearance Urine Clear (Clear); Bacteria Urine Automated None Seen (None Seen); Bilirubin Urine Negative (Negative); Blood Urine 1+ (Negative); Color Urine Yellow; Epithelial Cell Urine Auto 0-2 /hpf (0-2); Glucose Urine UA Negative (Negative); Ketones Urine Negative (Negative); Leukocyte Esterase Urine Negative (Negative); Nitrite Urine Negative (Negative); Protein Urine 1+ (Negative); RBC Urine Automated 0-2 /hpf (0-2); Specific Gravity Urine 1.016 (1.000-1.030); Urobilinogen Urine Negative (Negative); WBC Urine Automated 0-5 /hpf (0-5)
[2024-05-30 07:45] LABS: BUN Creatinine Ratio 26.7 (10-20); Calcium 8.8 mg/dl (8.6-10.3); Creatinine Clr Calc Pharmacy 23.3 ml/min; Magnesium 2.2 mg/dl (1.7-2.4); Phosphorus 3.3 mg/dl (2.5-4.9); Potassium 4.6 mmol/L (3.5-5.1)
--- NOTE | 2024-05-30 07:56 | Orthopedic Progress Note ---
Date of Service May 30, 2024 Assessment & Plan (1) Closed intertrochanteric fracture of right hip: Plan: 83-year-old female well postop from alignment on the right inotrope fracture. Orthopedically she is doing well. Got multiple other medical comorbidities which are currently being managed. Plan: From the orthopedic standpoint she is doing well. She can continue weight-bear as tolerated. Routine wound care with dry dressing changes daily. DVT prophylaxis as described previously. I need to see her back 2 to 3 weeks out from surgery date. Any orthopedic questions can be directly [phone]. Having a sign off for now unless there is for further orthopedic issues. Will plan on seeing her in follow-up as an outpatient. Admission and Anticipated Discharge Date Admission Date: May 24, 2024 Subjective 83-year-old female status post IM nailing of right inner troches fracture. She is doing okay this morning. No particular pain while laying in bed. No new complaints. Physical Exam Physical Exam: Physical [place] is a pleasant elderly female. Lying in bed eating her breakfast. Examination of the right hip and leg reveals leg to be well aligned. Dressings clean dry and intact. Thigh is soft and supple. She is neurologically intact. Results & Data Vital Signs (Past 12 Hours) Vital Signs Temp Pulse Pulse Resp BP Pulse Ox O2 Del Method 05/30/24 07:36 90 05/30/24 03:00 36.4 C L 87 16 100/60 93 Room Air 05/29/24 23:14 36.5 C 91 H 18 99/60 L 93 Room Air 05/29/24 23:12 88 05/29/24 21:22 Room Air
--- NOTE | 2024-05-30 13:27 | Hospitalist Progress Note ---
Date of Service May 30, 2024 Assessment & Plan (1) Fracture of right femur: Plan Inga Barakat is an 83y/o F with PMHx significant for DM type II, secondary hyperparathyroidism, diabetic retinopathy, CKD stage III, hypothyroidism, polyneuropathy, PVD, HLD, RADHA on 2L of O2 via NC, moderate persistent asthma, nocturnal hypoxemia, COPD, paroxysmal atrial fibrillation s/p Watchman procedure, sick sinus syndrome s/p pacemaker placement, pulmonary hypertension, chronic diastolic CHF, left carotid artery aneurysm, aortic atherosclerosis, severe tricuspid regurgitation, s/p mitral valve clip for severe mitral regurgitation, GERD, sigmoid diverticulosis, Mnire's disease, anemia, history of TIA, history of endometrial cancer and depression who presented to the ED via EMS after sustaining a fall at home and was found to have an acute displaced an gulated intertrochanteric fracture of the right femur. She is being managed for the following: Right Femur Fracture S/P Fall: R hip XR shows an acute displaced angulated intertrochanteric fracture of the R femur. 05/25/24 -- R hip intertrochanteric IM Nail Smith cath, PT/OT evals post operatively pt has chronic diarrhea will monitor this while on narcotics Aspirin 81 mg twice daily for DVT prophylaxis. f/u ortho on dc in 2 wks Chronic Diastolic CHF Severe Tricuspid Regurgitation Hx of severe mitral regurg s/p Mitral Clip Pre operatively pt examined as mildly volume overloaded, Received a dose of Bumex 1 mg IV, postoperatively noted to be dry and hypovolemic and had hypotension. Received blood transfusion, s/p IV fluid, torsemide on hold, monitor volume status closely. daily weight, Strict I and O Post Operative Hypotension & Afib w/ RVR suspect in setting of volume depletion from NPO status/IV diuresis pre op And perioperative blood loss. Status post 2 unit PRBC, hemoglobin is stable. Status post bolus IV fluid Blood pressure stable, patient with no chest pain/palpitation/dizziness. A-fib RVR likely in the setting of volume depletion, expect to improve with improvement in volume status. Cardiology evaled, appreciate recommendation. TIFFANY over CKD Stage III: Baseline Cr ~1.7-1.8 per chart review. Cr jumped to 2.82 on 05/27. Likely prerenal secondary to postoperative hypotension. See above. Torsemide on hold, nephro on board, appreciate recs. Avoid nephrotoxic medications when able. Monitor renal function closely with AM labs. Cr resolved. Mild Transaminitis: AST 49 and Alk Phos 230 on admission. Pt with recent LFT elevation and intermittent elevation in past - suspect possible induced by recent viral illness, also on statin Repeat LFT in AM. RADHA, Nocturnal Hypoxia: Continue baseline 2L O2 HS. Persistent AFib S/P Watchman Procedure: SSS s/p PPM hx of LV thrombus Continue metoprolol succinate and aspirin therapy. Pre operatively was rate controlled but does appear to have been in afib since February Continuous cardiac monitoring in place, metoprolol with hold parameters. She has been off eliquis since March and on ASA only Consult cardiology Dr. Chavarria - he is aware of consult and pt well known to him, appreciate cardiology recs She did receive dose of IV digoxin overnight Will keep Mag and K > 2.0 and 4.0 respectively Iron Def Anemia Anemia 2/2 Chronic GI Losses follow hemoglobin closely, on ASA therapy only iron panel with low iron at 17 and T sat at 9% . s/p 2 unit prbc this admission. Will likely need iron supplement on DC. Repeat Iron profile study in 3 months. Asthma/COPD: Can continue home medications. No acute exacerbation DM Type II: Diet-controlled. A1c was 6.9% on 03/24/24. Hold off on SSI for now. BSG checks ACHS. Monitor BSG. Chronic Diarrhea son reports this has improved since being off eliquis monitor Hypothyroidism: TSh fluctuating as outpt, in February was 24 and April 0.68.tsh nl here, continue current dose Other Chronic Medical Conditions: HLD, gout, GERD and depression --> Can continue home medications for these specific conditions. DVT Prophylaxis: aspirin bid. teds. scds Code Status: DNR/DNI PCP: Florentin Calvo DO Disposition: med/surg, will need placement. Admission and Anticipated Discharge Date Admission Date: May 24, 2024 Subjective Patient was seen and examined at bedside. Patient was lying in bed, on room air, NAD, resting comfortably. Patient reports feeling better, reports pain under control at operative site. Patient denies shortness of breath or chest pain. Per RN patient is eating better. Physical Exam Physical Exam: Gen: WD/WN, F, NAD, elderly, [place], A&O x3 HEENT: Normocephalic, atraumatic, conjunctivae moist, sclerae anicteric, mucous membranes moist. Lung: Clear to Auscultation bilaterally, no wheezes/rales/rhonchi Heart: IRR/IRR, 1/6 SUE, rubs, or gallops Abdomen: Soft, NT, ND +BS x 4 Extremities: No edema, RLE dressing CDI Skin: Warm, no rash, negative turgor. Results & Data Results & Data Vital Signs (Past 12 Hours) Vital Signs Temp Pulse Pulse Pulse Resp BP Pulse Ox 05/30/24 10:55 36.6 C 88 17 99/55 L 93 05/30/24 08:07 36.7 C 88 18 119/75 95 05/30/24 07:36 90 05/30/24 03:00 36.4 C L 87 16 100/60 93 O2 Del Method 05/30/24 10:55 Room Air 05/30/24 08:07 Room Air 05/30/24 07:36 05/30/24 03:00 Room Air (1) Fracture of right femur Encounter type: initial encounter Femur location: unspecified portion of femur Fracture type: closed Fracture morphology: unspecified fracture morphology Qualified Code(s): S72.91XA - Unspecified fracture of right femur, initial encounter for closed fracture
--- NOTE | 2024-05-30 15:21 | Nephrology Progress Note ---
Date of Service May 30, 2024 Assessment & Plan Admission and Anticipated Discharge Date Admission Date: May 24, 2024 Subjective Assessment & Plan (1) MEE (acute kidney injury): MEE which happened after hospital admission on background CKD 3B ( baseline creat around 1.4) from DM and other medical issues she has. MEE is from classic ATN. This happened around 05/25 and 05/26 in the perioperative period with super low BP and Low Hgb in a very susceptible elderly female with pre existing CKD and many comorbid Dz. Still has some e/o volume overload. CXR done 05/28 still shows Pulm edema and CHF. But she is On Room air. Will hold off on Diuretics for now. No IVF. has dang so do need to measure I and O carefully. Mee is better today with creat downtrending even more than yesterday and is now 1.87 ---baseline is about 1.4. NO issues with electrolytes. urine is good. Continue current management (2) Chronic renal failure (CRF), stage 3b: baseline around 1.4 but had recent MEE. Susceptible to MEE because of many Dz she has. (3) Closed intertrochanteric fracture of right hip: S/p surgery 05/25 with perioperative Severe anemia and low BP S---Still on RA. NO major Distress. BP is better. Labs better. ROS--Pain in lot of places. weakness. 12 Systems otherwise negative Physical Exam Constitutional: Ill appearing; no acute distress. Normal speech. Room air Eyes: PERRL, conjunctivae normal, anicteric sclerae Neck: Supple. No JVD Respiratory: normal respiratory effort, lungs with Diminished BS at bases Cardiovascular: Rate/Rhythm: + irregularly irregular Heart Sounds: + murmur Vessels: no JVD Extremities: + 1 edema Gastrointestinal (Abdomen): soft, nontender Results & Data Vital Signs (Past 12 Hours) Vital Signs Temp Pulse Pulse Resp BP Pulse Ox O2 Del Method 05/30/24 10:55 36.6 C 88 17 99/55 L 93 Room Air 05/30/24 08:07 36.7 C 88 18 119/75 95 Room Air 05/30/24 07:36 90
[2024-05-31 07:02] LABS: Hematocrit (blood only) 29.3 % (37.0-47.0); Hemoglobin 9.5 g/dl (12.0-16.0); Mean Corpuscular Hemoglobin 30.1 pg (25.0-34.0); Mean Corpuscular Hgb Conc 32.4 g/dL (32.0-36.0); Mean Corpuscular Volume 92.7 fL (80.0-100.0); Mean Platelet Volume 10.1 fL (9.4-12.4); Nucleated RBC # (auto) 0.07 K/uL (0.00-0.12); Nucleated RBC % (auto) 0.7 %; Platelet Count 204 K/uL (130-400); RDW Coefficient of Variation 17.1 % (11.5-14.5); RDW Standard Deviation 55.1 fL (36.4-46.3); Red Blood Count 3.16 M/uL (4.20-5.40); White Blood Count 10.08 K/ul (4.8-10.8)
[2024-05-31 07:25] LABS: Albumin Level 3.1 gm/dl (3.4-5.0); BUN Creatinine Ratio 30.9 (10-20); Bilirubin Direct 0.3 mg/dl (0-0.2); Calcium 8.8 mg/dl (8.6-10.3); Creatinine Clr Calc Pharmacy 31.5 ml/min; Potassium 5.2 mmol/L (3.5-5.1); Total Protein 5.5 gm/dl (6.0-8.3)
--- NOTE | 2024-05-31 11:32 | Hospitalist Progress Note ---
Date of Service May 31, 2024 Assessment & Plan (1) Fracture of right femur: Plan Inga Barakat is an 83y/o F with PMHx significant for DM type II, secondary hyperparathyroidism, diabetic retinopathy, CKD stage III, hypothyroidism, polyneuropathy, PVD, HLD, RADHA on 2L of O2 via NC, moderate persistent asthma, nocturnal hypoxemia, COPD, paroxysmal atrial fibrillation s/p Watchman procedure, sick sinus syndrome s/p pacemaker placement, pulmonary hypertension, chronic diastolic CHF, left carotid artery aneurysm, aortic atherosclerosis, severe tricuspid regurgitation, s/p mitral valve clip for severe mitral regurgitation, GERD, sigmoid diverticulosis, Mnire's disease, anemia, history of TIA, history of endometrial cancer and depression who presented to the ED via EMS after sustaining a fall at home and was found to have an acute displaced an gulated intertrochanteric fracture of the right femur. She is being managed for the following: Right Femur Fracture S/P Fall: R hip XR shows an acute displaced angulated intertrochanteric fracture of the R femur. 05/25/24 -- R hip intertrochanteric IM Nail Smith cath, PT/OT evals post operatively pt has chronic diarrhea will monitor this while on narcotics Aspirin 81 mg twice daily for DVT prophylaxis. f/u ortho on dc in 2 wks from Sx. Chronic Diastolic CHF Severe Tricuspid Regurgitation Hx of severe mitral regurg s/p Mitral Clip Pre operatively pt examined as mildly volume overloaded, Received a dose of Bumex 1 mg IV, postoperatively noted to be dry and hypovolemic and had hypotension. Received blood transfusion, s/p IV fluid, torsemide on hold, monitor volume status closely. daily weight, Strict I and O Post Operative Hypotension & Afib w/ RVR suspect in setting of volume depletion from NPO status/IV diuresis pre op And perioperative blood loss. Status post 2 unit PRBC, hemoglobin is stable. Status post bolus IV fluid Blood pressure stable, patient with no chest pain/palpitation/dizziness. A-fib RVR likely in the setting of volume depletion, expect to improve with improvement in volume status. Cardiology evaled, appreciate recommendation. TIFFANY over CKD Stage III: Baseline Cr ~1.7-1.8 per chart review. Cr jumped to 2.82 on 05/27. Likely prerenal secondary to postoperative hypotension. See above. Torsemide on hold, nephro on board, managing ivf, appreciate recs. Avoid nephrotoxic medications when able. Monitor renal function closely with AM labs. Cr resolved. Hyperkalemia noted today, 5.2, put her on low K diet, will repeat BMP around 2 pm. Will resume torsemide once cleared per nephro and if BP supports. Mild Transaminitis: AST 49 and Alk Phos 230 on admission. Pt with recent LFT elevation and intermittent elevation in past - suspect possible induced by recent viral illness, also on statin LFT trended down to her baseline. RADHA, Nocturnal Hypoxia: Continue baseline 2L O2 HS. Persistent AFib S/P Watchman Procedure: SSS s/p PPM hx of LV thrombus Continue metoprolol succinate and aspirin therapy. Pre operatively was rate controlled but does appear to have been in afib since February Continuous cardiac monitoring in place, metoprolol with hold parameters. She has been off eliquis since March and on ASA only Consult cardiology Dr. Chavarria - he is aware of consult and pt well known to him, appreciate cardiology recs She did receive dose of IV digoxin overnight Will keep Mag and K > 2.0 and 4.0 respectively Iron Def Anemia Anemia 2/2 Chronic GI Losses follow hemoglobin closely, on ASA therapy only iron panel with low iron at 17 and T sat at 9% . s/p 2 unit prbc this admission. Will likely need iron supplement on DC. Repeat Iron profile study in 3 months. Asthma/COPD: Can continue home medications. No acute exacerbation DM Type II: Diet-controlled. A1c was 6.9% on 03/24/24. Hold off on SSI for now. BSG checks ACHS. Monitor BSG. Chronic Diarrhea son reports this has improved since being off eliquis monitor Hypothyroidism: TSh fluctuating as outpt, in February was 24 and April 0.68. tsh nl here, continue current dose Other Chronic Medical Conditions: HLD, gout, GERD and depression --> Can continue home medications for these specific conditions. DVT Prophylaxis: aspirin bid. teds. scds Code Status: DNR/DNI PCP: Florentin Calvo, Disposition: med/tele due to hyperkalemia, will need placement. Admission and Anticipated Discharge Date Admission Date: May 24, 2024 Subjective Patient was seen and examined at bedside. Patient was lying in bed, on room air, NAD, resting comfortably. Patient reports feeling better, reports pain under control at operative site. Patient denies shortness of breath or chest pain. Per RN patient is eating better. Pt occasionally confused but not aggressive or violent. c/w delirium precaution. Physical Exam Physical Exam: Gen: WD/WN, F, NAD, elderly, [place], [place]. HEENT: Normocephalic, atraumatic, conjunctivae moist, sclerae anicteric, mucous membranes moist. Lung: Clear to Auscultation bilaterally, no wheezes/rales/rhonchi Heart: IRR/IRR, 1/6 SUE, rubs, or gallops Abdomen: Soft, NT, ND +BS x 4 Extremities: No edema, RLE dressing CDI Skin: Warm, no rash, negative turgor. Results & Data Results & Data Vital Signs (Past 12 Hours) Vital Signs Temp Pulse Resp BP Pulse Ox O2 Del Method 05/31/24 11:13 37 C 93 H 18 88/56 L 93 Room Air 05/31/24 07:31 36.4 C L 114 H 20 126/70 91 Room Air 05/31/24 07:15 Room Air 05/31/24 02:00 36.4 C L 90 16 114/66 93 Room Air (1) Fracture of right femur Encounter type: initial encounter Femur location: unspecified portion of femur Fracture type: closed Fracture morphology: unspecified fracture morphology Qualified Code(s): S72.91XA - Unspecified fracture of right femur, initial encounter for closed fracture
[2024-05-31] MEDS: ALBUMIN 25% 25 GM/100 ML VIAL IV SCH (11:58)
--- NOTE | 2024-05-31 12:17 | Nephrology Progress Note ---
Date of Service May 31, 2024 Assessment & Plan (1) TIFFANY (acute kidney injury): Plan: improving stage stage 2 nonoliguric TIFFANY which happened after hospital admission on background CKD 3B ( baseline creat around 1.4) from DM and other medical issues. back to baseline today but w/ hypotension enough to need albumin. TIFFANY is from classic ATN. This happened around 05/25 and 05/26 in the perioperative period with super low BP and Low Hgb in a very susceptible elderly female with pre existing CKD and many comorbid Dz. p/w creat 2.3 05/13; peak at 3.1 on 05/28; today back to 1.4 >>Still has e/o volume overload. BP is still on low side but somewhat better at least much of the time On Room air. >>s/p IV albumin ON has dang and do need to measure I and O carefully. urine output increased to 1.1 L Will again hold off on Diuretics for now. no IVF. look to resume diuretics in AM if remains stable, sooner if decompensating continue rate control efforts// f/u cardiology recs (2) Chronic renal failure (CRF), stage 3b: Plan: baseline around 1.4 but had recent TIFFANY. Susceptible to TIFFANY because of many Dz she has. back at baseline now (3) Closed intertrochanteric fracture of right hip: Plan: S/p surgery 05/25 with perioperative Severe anemia and low BP Admission and Anticipated Discharge Date Admission Date: May 24, 2024 Subjective getting albumin x 3; some lethargy today; cardiology following; seen on late afternoon rounds; son at bedside; no sob, no orthopnea; not aware of edema; tried to stand w/ PT today first time and was dizzy/ nauseated; no pain from fracture/surgery; sandwich for supper and little else Review of Systems 2 Review of Systems: All systems reviewed & are unremarkable except as noted in Subjective Physical Exam 2 Constitutional: well developed and well nourished Eyes: EOM intact bilaterally ENMT: Mouth: + muffled voice and + dry oral mucous membranes Neck: no nuchal rigidity Respiratory: normal respiratory effort Auscultation: lungs clear to auscultation bilaterally and + diminished lung sounds Cardiovascular: Rate/Rhythm: + irregularly irregular Extremities: + edema (3+ dependent; trace peripheral) Musculoskeletal: Extremities: strength 5/5 throughout Skin: no rashes, warm and dry Neurologic: talley, fluent speech, no tremor Psychiatric: Orientation: alert and oriented x 3 some confusion at times about time of day Results & Data Vital Signs (Past 12 Hours) Vital Signs Temp Pulse Resp BP Pulse Ox O2 Del Method 05/31/24 11:13 37 C 93 H 18 88/56 L 93 Room Air 05/31/24 07:31 36.4 C L 114 H 20 126/70 91 Room Air 05/31/24 07:15 Room Air 05/31/24 02:00 36.4 C L 90 16 114/66 93 Room Air Laboratory Results 05/31/24 06:26 05/31/24 06:26
[2024-05-31] MEDS: POLYETHYLENE (MIRALAX) 17 GM PACK PO PRN (13:33)
--- NOTE | 2024-05-31 14:35 | Cardiology Progress Note ---
Date of Service May 31, 2024 Assessment & Plan (1) Persistent atrial fibrillation with rapid ventricular response: (2) Fall: (3) Closed intertrochanteric fracture of right hip: (4) TIFFANY (acute kidney injury): (5) S/P mitral valve clip implantation: (6) Presence of Watchman left atrial appendage closure device: (7) Chronic diastolic (congestive) heart failure: (8) Cardiac pacemaker in situ: Plan Patient is an 83-year-old female with complex underlying cardiac disease which includes persistent atrial fibrillation, chronic diastolic/valvular heart failure with prior mitral valve clip for severe mitral insufficiency. Recent hospitalizations for weakness and fatigue possible post-COVID, acute renal Hospitalized this admission following mechanical fall and right hip fracture Heart rates elevated postoperatively multifactorial including pain, volume loss and anemia Heart rates improved. Blood pressure improved but still marginal TIFFANY, creatinine peaked at 3.09 mg/dl on 05/28 , now down to 1.39 mg/dl. Holding diuretics. Monitor potassium as up to 5.2 mmol/l. Hgb was down to 6.8 on 05/26 , now up to 9.5 g/dl and stable having received two units PRBCs on 05/27/24. Admission and Anticipated Discharge Date Admission Date: May 24, 2024 Subjective Patient seen in cardiology follow up. Lethargic. Not on telemetry during assessment. Physical Exam Constitutional: + thin and + frail appearing; no acute d istress Eyes: PERRL, conjunctivae normal, anicteric sclerae Neck: trachea midline, no thyromegaly Respiratory: normal respiratory effort, lungs clear to auscultation Cardiovascular: Rate/Rhythm: + irregularly irregular Heart Sounds: + murmur Vessels: no JVD Extremities: + edema (Trace edema with chronic stasis change) Gastrointestinal (Abdomen): normal bowel sounds, soft, nontender, no hepatosplenomegaly Inspection/Auscultation: + abdomen distended (Mild) Results & Data Vital Signs (Past 12 Hours) Vital Signs Temp Pulse Resp BP Pulse Ox O2 Del Method 05/31/24 12:33 104/66 05/31/24 11:13 37 C 93 H 18 88/56 L 93 Room Air 05/31/24 07:31 36.4 C L 114 H 20 126/70 91 Room Air 05/31/24 07:15 Room Air
[2024-05-31 15:15] LABS: BUN Creatinine Ratio 30.8 (10-20); Calcium 8.6 mg/dl (8.6-10.3); Creatinine Clr Calc Pharmacy 33.7 ml/min; Potassium 4.6 mmol/L (3.5-5.1)
[2024-06-01 07:35] LABS: BUN Creatinine Ratio 29.2 (10-20); Calcium 8.9 mg/dl (8.6-10.3); Creatinine Clr Calc Pharmacy 36.7 ml/min; Magnesium 1.9 mg/dl (1.7-2.4); Phosphorus 2.5 mg/dl (2.5-4.9); Potassium 4.6 mmol/L (3.5-5.1)
[2024-06-01 07:37] LABS: Hematocrit (blood only) 26.7 % (37.0-47.0); Hemoglobin 8.9 g/dl (12.0-16.0); Mean Corpuscular Hemoglobin 30.2 pg (25.0-34.0); Mean Corpuscular Hgb Conc 33.3 g/dL (32.0-36.0); Mean Corpuscular Volume 90.5 fL (80.0-100.0); Mean Platelet Volume 10.2 fL (9.4-12.4); Nucleated RBC # (auto) 0.08 K/uL (0.00-0.12); Nucleated RBC % (auto) 0.7 %; Platelet Count 208 K/uL (130-400); RDW Coefficient of Variation 17.2 % (11.5-14.5); RDW Standard Deviation 54.8 fL (36.4-46.3); Red Blood Count 2.95 M/uL (4.20-5.40); White Blood Count 11.09 K/ul (4.8-10.8)
--- NOTE | 2024-06-01 09:57 | Cardiology Progress Note ---
Date of Service June 01, 2024 Assessment & Plan (1) Fall: (2) Closed intertrochanteric fracture of right hip: (3) Persistent atrial fibrillation with rapid ventricular response: (4) TIFFANY (acute kidney injury): (5) S/P mitral valve clip implantation: (6) Presence of Watchman left atrial appendage closure device: (7) Chronic diastolic (congestive) heart failure: (8) Cardiac pacemaker in situ: Plan Patient is an 83-year-old female with complex underlying cardiac disease which includes persistent atrial fibrillation, chronic diastolic/valvular heart failure with prior mitral valve clip for severe mitral insufficiency. Recent hospitalizations for weakness and fatigue possible post-COVID, acute renal insufficiency. Hospitalized this admission following mechanical fall and right hip fracture for which patient underwent right hip fracture long trochanteric nail on 05/25/24 Heart rates elevated postoperatively multifactorial including pain, volume loss and anemia. Heart rates improved. Blood pressure improved but still marginal TIFFANY, creatinine peaked at 3.09 mg/dl on 05/28 , now down to 1.39--> 1.2 mg/d. Holding diuretics. Monitor potassium as up to 5.2 mmol/l on 05/31 --> 4.6 mmol/l Hgb was down to 6.8 on 05/26 , now up to 9.5 g/dl and stable having received two units PRBCs on 05/27/24. Making slow progress with PT, noted pain with attempted weight bearing. DVT prophylaxis: SCDs Admission and Anticipated Discharge Date Admission Date: May 24, 2024 Subjective Patient resting comfortably. AF noted on telemetry. Ventricular rate controlled in the 90s. Denies orthopnea. Physical Exam Constitutional: + thin and + frail appearing; no acute d istress Eyes: PERRL, conjunctivae normal, anicteric sclerae Neck: trachea midline, no thyromegaly Respiratory: normal respiratory effort, lungs clear to auscultation Cardiovascular: Rate/Rhythm: + irregularly irregular Heart Sounds: + murmur Vessels: no JVD Extremities: + edema (Trace edema with chronic stasis change) Gastrointestinal (Abdomen): normal bowel sounds, soft, nontender, no hepatosplenomegaly Inspection/Auscultation: + abdomen distended (Mild) Results & Data Vital Signs (Past 12 Hours) Vital Signs Temp Pulse Pulse Resp BP Pulse Ox O2 Del Method 06/01/24 07:46 92 H 06/01/24 07:42 36.4 C L 91 H 18 123/67 94 Room Air 05/31/24 23:41 119 H 05/31/24 22:00 36.4 C L 94 H 16 135/72 92 Room Air Laboratory Results CBC 06/01/24 Range/Units 06:34 WBC 11.09 H (4.8-10.8) K/ul RBC 2.95 L (4.20-5.40) M/uL Hgb 8.9 L (12.0-16.0) g/dl Hct 26.7 L (37.0-47.0) % Plt Count 208 (130-400) K/uL Comprehensive Metabolic Panel 05/31/24 06/01/24 Range/Units 14:51 06:34 Sodium 134 L 138 (136-145) mmol/L Potassium 4.6 4.6 (3.5-5.1) mmol/L Chloride 106 108 H (98-107) mmol/L Carbon Dioxide 20 L 22 (21-32) mmol/L BUN 40 H 35 H (6-23) mg/dl Creatinine 1.30 H 1.20 (0.6-1.2) mg/dl Glucose 137 H 125 H (70-99(Fasting)) mg/dl Calcium 8.6 8.9 (8.6-10.3) mg/dl Intake and Output 05/31/24 06/01/24 06/01/24 22:59 06:59 14:59 Intake Total 120 / 700 120 / 700 Output Total 601 / 1051 450 / 1051 Balance -481 / -351 -330 / -351 Intake: Oral 120 / 600 120 / 600 Output: Urine Amount (Catheter) 600 / 1050 450 / 1050 Smith/Indwelling 600 / 1050 450 / 1050 # Bowel Movements Other: Weight 78.3 kg Weight Measurement Method Built in [facility]
--- NOTE | 2024-06-01 10:14 | Nephrology Progress Note ---
Date of Service June 01, 2024 Assessment & Plan (1) TIFFANY (acute kidney injury): Plan: resolved stage stage 2 nonoliguric TIFFANY which happened after hospital admission on background CKD 3B ( baseline creat around 1.4) from DM and other medical issues. back to baseline today but w/ hypotension enough to need albumin. TIFFANY is from classic ATN. This happened around 05/25 and 05/26 in the perioperative period with super low BP and Low Hgb in a very susceptible elderly female with pre existing CKD and many comorbid Dz. p/w creat 2.3 05/13; peak at 3.1 on 05/28; today back to 1.2 >>Still has e/o volume overload. BP is still on low side but somewhat better at least much of the time; however HR high today and worry bp can drop abruptly On Room air. >>s/p IV albumin 05/31 has dang and defer to primary service >> could remove to lower infection risk versus keep as will be starting diuresis cardiology note reviewed from today > BP still marginal and w/ ongoing HR elevation in 90-100s today (new/worse) >> worry BP can drop >takes torsemide 20 mg daily as OP > suggest 5 mg daily when we start but would hold today given concerns above Care coordinated with Dr Javier taylor holding diuretic given higher HR >> consider more beta blockade for better rate control and did d/w primary/cardiology via [employer]Text. (2) Chronic renal failure (CRF), stage 3b: Plan: baseline around 1.4 but had recent TIFFANY. Susceptible to TIFFANY because of many Dz she has. back at baseline now (3) Closed intertrochanteric fracture of right hip: Plan: S/p surgery 05/25 with perioperative Severe anemia and low BP Admission and Anticipated Discharge Date Admission Date: May 24, 2024 Subjective no interval events clinically. HR generally 90s Review of Systems 2 Review of Systems: All systems reviewed & are unremarkable except as noted in Subjective Physical Exam 2 Constitutional: well developed and well nourished Eyes: EOM intact bilaterally ENMT: Mouth: + muffled voice and + dry oral mucous membranes Neck: no nuchal rigidity Respiratory: normal respiratory effort Auscultation: lungs clear to auscultation bilaterally and + diminished lung sounds Cardiovascular: Rate/Rhythm: + tachycardic and + irregularly irregular E xtremities: + edema (3+ dependent; trace peripheral) Musculoskeletal: Extremities: strength 5/5 throughout Skin: no rashes, warm and dry Psychiatric: Orientation: alert and oriented x 3 Results & Data Vital Signs (Past 12 Hours) Vital Signs Temp Pulse Pulse Resp BP Pulse Ox O2 Del Method 06/01/24 07:46 92 H 06/01/24 07:42 36.4 C L 91 H 18 123/67 94 Room Air 05/31/24 23:41 119 H Laboratory Results 06/01/24 06:34 06/01/24 06:34
--- NOTE | 2024-06-01 14:23 | Hospitalist Progress Note ---
Date of Service June 01, 2024 Assessment & Plan (1) Fracture of right femur: Plan Inga Barakat is an 83y/o F with PMHx significant for DM type II, secondary hyperparathyroidism, diabetic retinopathy, CKD stage III, hypothyroidism, polyneuropathy, PVD, HLD, RADHA on 2L of O2 via NC, moderate persistent asthma, nocturnal hypoxemia, COPD, paroxysmal atrial fibrillation s/p Watchman procedure, sick sinus syndrome s/p pacemaker placement, pulmonary hypertension, chronic diastolic CHF, left carotid artery aneurysm, aortic atherosclerosis, severe tricuspid regurgitation, s/p mitral valve clip for severe mitral regurgitation, GERD, sigmoid diverticulosis, Mnire's disease, anemia, history of TIA, history of endometrial cancer and depression who presented to the ED via EMS after sustaining a fall at home and was found to have an acute displaced an gulated intertrochanteric fracture of the right femur. She is being managed for the following: Right Femur Fracture S/P Fall: R hip XR shows an acute displaced angulated intertrochanteric fracture of the R femur. 05/25/24 -- R hip intertrochanteric IM Nail Smith cath, PT/OT evals post operatively pt has chronic diarrhea will monitor this while on narcotics Aspirin 81 mg twice daily for DVT prophylaxis. f/u ortho on dc in 2 wks from Sx. Chronic Diastolic CHF Severe Tricuspid Regurgitation Hx of severe mitral regurg s/p Mitral Clip Pre operatively pt examined as mildly volume overloaded, Received a dose of Bumex 1 mg IV, postoperatively noted to be dry and hypovolemic and had hypotension. Received blood transfusion, s/p IV fluid, torsemide on hold, monitor volume status closely. daily weight, Strict I and O Post Operative Hypotension & Afib w/ RVR suspect in setting of volume depletion from NPO status/IV diuresis pre op And perioperative blood loss. Status post 2 unit PRBC, hemoglobin is stable. Status post bolus IV fluid Blood pressure stable, patient with no chest pain/palpitation/dizziness. A-fib RVR likely in the setting of volume depletion, expect to improve with improvement in volume status. Cardiology evaled, appreciate recommendation. TIFFANY over CKD Stage III: Baseline Cr ~1.7-1.8 per chart review. Cr jumped to 2.82 on 05/27. Likely prerenal secondary to postoperative hypotension. See above. Torsemide on hold, nephro on board, appreciate recs. Avoid nephrotoxic medications when able. Monitor renal function closely with AM labs. Cr resolved. Mild Transaminitis: AST 49 and Alk Phos 230 on admission. Pt with recent LFT elevation and intermittent elevation in past - suspect possible induced by recent viral illness, also on statin LFT trended down to her baseline. RADHA, Nocturnal Hypoxia: Continue baseline 2L O2 HS. Persistent AFib S/P Watchman Procedure: SSS s/p PPM hx of LV thrombus Continue metoprolol succinate and aspirin therapy. Pre operatively was rate controlled but does appear to have been in afib since February Continuous cardiac monitoring in place, metoprolol with hold parameters. She has been off eliquis since March and on ASA only She did receive dose of IV digoxin overnight Will keep Mag and K > 2.0 and 4.0 respectively Cards on board, metoprolol dose increased. Iron Def Anemia Anemia 2/2 Chronic GI Losses follow hemoglobin closely, on ASA therapy only iron panel with low iron at 17 and T sat at 9% . s/p 2 unit prbc this admission. Will likely need iron supplement on DC. Repeat Iron profile study in 3 months. Asthma/COPD: Can continue home medications. No acute exacerbation DM Type II: Diet-controlled. A1c was 6.9% on 03/24/24. Hold off on SSI for now. BSG checks ACHS. Monitor BSG. Chronic Diarrhea son reports this has improved since being off eliquis monitor Hypothyroidism: TSh fluctuating as outpt, in February was 24 and April 0.68. tsh nl here, continue current dose Other Chronic Medical Conditions: HLD, gout, GERD and depression --> Can continue home medications for these specific conditions. DVT Prophylaxis: aspirin bid. teds. scds Code Status: DNR/DNI PCP: Florentin Calvo, Disposition: med/tele , will need placement. Admission and Anticipated Discharge Date Admission Date: May 24, 2024 Subjective Patient was seen and examined at bedside. Patient was lying in bed, on room air, NAD, resting comfortably. Patient reports feeling better, reports pain under control at operative site. Patient denies shortness of breath or chest pain. Per RN patient is eating better and moving bowels ok. Pt occasionally confused but not aggressive or violent. c/w delirium precaution. Physical Exam Physical Exam: Gen: WD/WN, F, NAD, elderly, [place], Alert. HEENT: Normocephalic, atraumatic, conjunctivae moist, sclerae anicteric, mucous membranes moist. Lung: Clear to Auscultation bilaterally, no wheezes/rales/rhonchi Heart: IRR/IRR, 1/6 SUE, rubs, or gallops Abdomen: Soft, NT, ND +BS x 4 Extremities: No edema, RLE dressing CDI Skin: Warm, no rash, negative turgor. Results & Data Results & Data Vital Signs (Past 12 Hours) Vital Signs Temp Pulse Pulse Resp BP Pulse Ox O2 Del Method 06/01/24 11:08 36.5 C 97 H 20 111/57 L 95 Room Air 06/01/24 10:16 Room Air 06/01/24 07:46 92 H 06/01/24 07:42 36.4 C L 91 H 18 123/67 94 Room Air (1) Fracture of right femur Encounter type: initial encounter Femur location: unspecified portion of femur Fracture type: closed Fracture morphology: unspecified fracture morphology Qualified Code(s): S72.91XA - Unspecified fracture of right femur, initial encounter for closed fracture
[2024-06-01] MEDS: METOPROLOL SUCC 25MG EXT REL TAB PO SCH (20:59)
[2024-06-02 06:26] VITALS: RESP 20; O2SAT 95
[2024-06-02 07:17] LABS: Hemoglobin 9.1 g/dl (12.0-16.0); Mean Corpuscular Hemoglobin 30.4 pg (25.0-34.0); Mean Corpuscular Hgb Conc 32.5 g/dL (32.0-36.0); Mean Corpuscular Volume 93.6 fL (80.0-100.0); Mean Platelet Volume 10.3 fL (9.4-12.4); Nucleated RBC # (auto) 0.05 K/uL (0.00-0.12); Nucleated RBC % (auto) 0.5 %; Platelet Count 216 K/uL (130-400); RDW Coefficient of Variation 17.6 % (11.5-14.5); Red Blood Count 2.99 M/uL (4.20-5.40); White Blood Count 10.85 K/ul (4.8-10.8)
[2024-06-02 07:42] VITALS: PULSE 90; TEMP 98.1
[2024-06-02 08:14] LABS: BUN Creatinine Ratio 31.1 (10-20); Calcium 8.6 mg/dl (8.6-10.3); Creatinine Clr Calc Pharmacy 41.6 ml/min; Potassium 4.2 mmol/L (3.5-5.1)
[2024-06-02] MEDS: METOPROLOL SUCC 25MG EXT REL TAB PO SCH (08:22)
--- NOTE | 2024-06-02 09:20 | Cardiology Progress Note ---
Date of Service June 02, 2024 Assessment & Plan (1) Fall: (2) Closed intertrochanteric fracture of right hip: (3) Persistent atrial fibrillation with rapid ventricular response: (4) TIFFANY (acute kidney injury): (5) S/P mitral valve clip implantation: (6) Presence of Watchman left atrial appendage closure device: (7) Chronic diastolic (congestive) heart failure: (8) Cardiac pacemaker in situ: Plan Patient is an 83-year-old female with complex underlying cardiac disease which includes persistent atrial fibrillation, chronic diastolic/valvular heart failure with prior mitral valve clip for severe mitral insufficiency. Recent hospitalizations for weakness and fatigue possible post-COVID, acute renal insufficiency. Hospitalized this admission following mechanical fall and right hip fracture for which patient underwent right hip fracture long trochanteric nail on 05/25/24 Heart rates elevated postoperatively multifactorial including pain, volume loss and anemia. Heart rates improved. Blood pressure improved but still marginal TIFFANY, creatinine peaked at 3.09 mg/dl on 05/28 , now down to 1.39--> 1.2-->1.06 mg/d. Holding diuretics. Monitor potassium as up to 5.2 mmol/l on 05/31 --> 4.6 -->4.2 mmol/l Continue metoprolol, dose increased to 37.5 mg am, 25 mg at bedtime Hgb was down to 6.8 on 05/26 , now up to 9.5 g/dl and stable having received two units PRBCs on 05/27/24. Making slow progress with PT, noted pain with attempted weight bearing. DVT prophylaxis: SCDs Admission and Anticipated Discharge Date Admission Date: May 24, 2024 Subjective Patient seen in cardiology follow up. More alert this am. Notes difficulty bearing weight on her operative leg. Telemetry reveals AF in the 70s. Physical Exam Constitutional: + thin and + frail appearing; no acute d istress Eyes: PERRL, conjunctivae normal, anicteric sclerae Neck: trachea midline, no thyromegaly Respiratory: normal respiratory effort, lungs clear to auscultation Cardiovascular: Rate/Rhythm: + irregularly irregular Heart Sounds: + murmur Vessels: no JVD Extremities: + edema (Trace edema with chronic stasis change) Gastrointestinal (Abdomen): normal bowel sounds, soft, nontender, no hepatosplenomegaly Inspection/Auscultation: + abdomen distended (Mild) Results & Data Vital Signs (Past 12 Hours) Vital Signs Temp Pulse Pulse Resp BP Pulse Ox O2 Del Method 06/02/24 07:27 36.7 C 90 20 123/67 95 Room Air 06/02/24 07:06 100 H 06/02/24 03:30 36.6 C 84 20 112/69 95 Room Air 06/01/24 22:33 90 06/01/24 21:19 Room Air
--- NOTE | 2024-06-02 10:23 | Discharge Summary ---
Discharge Summary Date of Service June 02, 2024 Principal Dx & Hospital Course #1 = Principal Diagnosis (1) Fracture of right femur: Lawrence Barakat is an 83y/o F with PMHx significant for DM type II, secondary hyperparathyroidism, diabetic retinopathy, CKD stage III, hypothyroidism, polyneuropathy, PVD, HLD, RADHA on 2L of O2 via NC, moderate persistent asthma, nocturnal hypoxemia, COPD, paroxysmal atrial fibrillation s/p Watchman procedure, sick sinus syndrome s/p pacemaker placement, pulmonary hypertension, chronic diastolic CHF, left carotid artery aneurysm, aortic atherosclerosis, severe tricuspid regurgitation, s/p mitral valve clip for severe mitral regurgitation, GERD, sigmoid diverticulosis, Mnire's disease, anemia, history of TIA, history of endometrial cancer and depression who presented to the ED 05/25 via EMS after sustaining a fall at home and was found to have an acute displaced angulated intertrochanteric fracture of the right femur. Patient initially thought to be mildly overloaded given hypoxia and CXR with signs concerning of edema. Patient given IV diuretic preoperatively. Patient underwent right intertrochanteric nail on 05/25. Patient's postoperative course complicated by postoperative blood loss anemia, hypotension, TIFFANY and a fib with RVR. Patient's torsemide held and nephrology followed closely with instructions on resumption of diuretic upon discharge. Patient's metoprolol was increased with better rate control. Patient did receive 2 Units PRBC and noted to be iron deficient as well. On day of discharge, patient eager for rehab. Patient denied any uncontrolled pain and was eating well and engaged in conversation appropriately . Smith discontinued. #Right Femur Fracture S/P intertrochanteric nail #Mechanical Fall R hip XR shows an acute displaced angulated intertrochanteric fracture of the R femur. 05/25/24 -- R hip intertrochanteric IM Nail Smith cathdiscontinued PT/OT evals: plan for rehab pt has chronic diarrhea will monitor this while on narcotics Continue Aspirin 81 mg twice daily for DVT prophylaxis. EOT 07/06 f/u ortho on dc in 2 wks from Sx. #Chronic Diastolic CHF #Severe Tricuspid Regurgitation #Hx of severe mitral regurg s/p Mitral Clip Pre operatively pt examined as mildly volume overloaded, Received a dose of Bumex 1 mg IV, postoperatively noted to be dry and hypovolemic and had hypotension. Received blood transfusion, s/p IV fluid, torsemide on hold, monitor volume status closely. Plan to START Torsemide 5mg daily as follows: -If systolic blood pressure consistently greater than 100 and heart rate less than 100, please start Torsemide 5mg on 06/04/2023 -If neither is met (blood pressure less than 100 and heart rates greater than 100, please reevaluate and consider resumption on 06/07. #Post Operative Hypotension *improved #Afib w/ RVR *improved suspect in setting of volume depletion from NPO status/IV diuresis pre op And perioperative blood loss. Status post 2 unit PRBC, hemoglobin is stable. Blood pressure stable, patient with no chest pain/palpitation/dizziness. Cardiology consulted -Metoprolol XL increased to 37.5mg qam/25mg qpm #TIFFANY over CKD Stage III: resolving Baseline Cr ~1.7-1.8 per chart review. Cr jumped to 2.82 on 05/27. Likely prerenal secondary to postoperative hypotension. See above. Torsemide on hold, nephro on board, appreciate recs. Avoid nephrotoxic medications when able. Monitor renal function closely with AM labs. Cr resolved. Nephrology recommends: Plan to START Torsemide 5mg daily as follows: -If systolic blood pressure consistently greater than 100 and heart rate less than 100, please start Torsemide 5mg on 06/04/2023 -If neither is met (blood pressure less than 100 and heart rates greater than 100, please reevaluate and consider resumption on 06/07. Follow up to be arranged #Mild Transaminitis: AST 49 and Alk Phos 230 on admission. Pt with recent LFT elevation and intermittent elevation in past - suspect possible induced by recent viral illness, also on statin LFT trended down to her baseline. #RADHA, Nocturnal Hypoxia: Continue baseline 2L O2 HS. #Persistent AFib S/P Watchman Procedure: #SSS s/p PPM #hx of LV thrombus Continue metoprolol succinate and aspirin therapy. Pre operatively was rate controlled but does appear to have been in afib since February Continuous cardiac monitoring in place, metoprolol with hold parameters. She has been off eliquis since March and on ASA only Will keep Mag and K > 2.0 and 4.0 respectively Cards on board, metoprolol dose increased. #Acute on chronic anemia 2/2 postopertive blood loss #Iron Def Anemia #Anemia 2/2 Chronic GI Losses follow hemoglobin closely, on ASA therapy only iron panel with low iron at 17 and T sat at 9% . s/p 2 unit prbc this admission. Discharge on PO iron #Asthma/COPD: Can continue home medications. No acute exacerbation #DM Type II: Diet-controlled. A1c was 6.9% on 03/24/24. #Chronic Diarrhea son reports this has improved since being off eliquis monitor #Hypothyroidism: TSh fluctuating as outpt, in February was 24 and April 0.68. tsh nl here, continue current dose Other Chronic Medical Conditions: HLD, gout, GERD and depression --> Can continue home medications for these specific conditions. Notes For Next Care Provider Follow up with Nephrology in 1 week after discharge from [facility] or 3 weeks after discharge, which ever is sooner. Nephrology Nurse to order BMP, UA with microscopy, Creatinine ratio, Hgb Medication Changes From Visit CHANGE Metoprolol XL to 37.5mg in the morning and 25mg at bedtime CHANGE Aspirin 81mg to two times a day until 07/06/2024 to help prevent clots while you recover DISCONTINUE torsemide 20mg daily until you follow up with nephrology Plan to START Torsemide 5mg daily as follows: -If systolic blood pressure consistently greater than 100 and heart rate less than 100, please start Torsemide 5mg on 06/04/2023 -If neither is met (blood pressure less than 100 and heart rates greater than 100, please reevaluate and consider resumption on 06/07. Admission HPI Per Admitting Provider Inga Barakat is an 83y/o F with PMHx significant for DM type II, secondary hyperparathyroidism, diabetic retinopathy, CKD stage III, hypothyroidism, polyne uropathy, PVD, HLD, RADHA, moderate persistent asthma, nocturnal hypoxemia, COPD, paroxysmal atrial fibrillation s/p Watchman procedure, sick sinus syndrome s/p pacemaker placement, pulmonary hypertension, chronic diastolic CHF, left carotid artery aneurysm, aortic atherosclerosis, severe tricuspid regurgitation, s/p mitral valve clip for severe mitral regurgitation, GERD, sigmoid diverticulosis, Mnire's disease, anemia, history of TIA, history of endometrial cancer and depression who presented to the ED via EMS after sustaining a fall at home. History obtained from patient, son at bedside and associated chart review. Patient reports she fell onto her right hip region after trying to get out of a chair at home. Mentions her right knee "gave out." Denies ever losing consciousness or hitting her head. She currently lives at home with her , who is tended to by a caregiver. This fall was unwitnessed however. She was unable to get up off of the floor herself and had to call her son for help, who therefore called the ambulance. Right hip XR in the ED shows an acute, displaced femur fracture. Patient rates her current pain as a 5/10 after receiving IV fentanyl in the ED. CXR in the ED did show moderate pulmonary edema. Patient reports an increase in her BLE edema from baseline. However she denies any SOB or chest pain. Reports she has been taking her torsemide as prescribed. Patient most recently admitted 05/13/24-05/18/24 for evaluation of generalized weakness and was found to have COVID-19. She also was treated for an TIFFANY. Work- up at that time was otherwise unremarkable for any acute new findings. Patient was discharged home with outpatient physical therapy. Of note, this is the patient's 4th admission since February 2024. Admission Exam Per Admitting Provider Gen: WD/WN, F, NAD, A&O x3 HEENT: Normocephalic, atraumatic, conjunctivae moist, sclerae anicteric, mucous membranes dry. Lung: Clear to Auscultation bilaterally, no wheezes/rales/rhonchi Heart: IRR rhythm, regular rate in 80s, 1/6 SUE, rubs, or gallops Abdomen: Soft, NT, ND +BS x 4 Extremities: No edema, RLE shortened and externally rotated, NVI distally Skin: Warm, no rash, negative turgor. Discharge Exam Constitutional WD/WN, vitals as above sitting in bed eating breakfast Respiratory normal respiratory effort, lungs clear to auscultation Cardiovascular Irregularly irregular, SUE Gastrointestinal (Abdomen) normal bowel sounds, soft, nontender, no hepatosplenomegaly Updated Medication List Medication Instructions Recorded Confirmed Type montelukast 10 mg tablet 10 mg PO PM 04/08/19 05/24/24 History atorvastatin 20 mg tablet 20 mg PO QAM 11/26/21 05/24/24 History cholecalciferol (vitamin D3) 50 100 mcg PO QAM 11/26/21 05/24/24 History mcg (2,000 unit) capsule (Vitamin D3) levalbuterol tartrate 45 1 puff inhalation Q4H PRN 08/07/22 05/24/24 History mcg/actuation aerosol inhaler Shortness Of Breath (Xopenex HFA) sertraline 100 mg tablet 150 mg PO QAM 08/07/22 05/24/24 History tiotropium 2.5 mcg-olodaterol 2.5 2 puff inhalation QAM 11/07/22 05/24/24 History mcg/actuation mist for inhalation (Stiolto Respimat) ipratropium bromide 21 mcg (0.03 2 spray intranasal DAILY PRN 12/06/22 05/24/24 History %) nasal spray rhinorrhea pantoprazole 40 mg tablet,delayed 40 mg PO BID #60 tabs 12/09/22 05/24/24 Rx release allopurinol 300 mg tablet 300 mg PO HS 08/14/23 05/24/24 History diphenoxylate-atropine 2.5 1 tab PO BID PRN Diarrhea 03/07/24 05/24/24 History mg-0.025 mg tablet levothyroxine 175 mcg tablet 175 mcg PO DAILYBB 03/21/24 05/24/24 History fentanyl 12 mcg/hr transdermal 12 mcg transdermal Q3D 03/23/24 05/24/24 History patch oxycodone 5 mg tablet 5 mg PO QID PRN pain severe #35 03/25/24 05/24/24 Rx tabs acetaminophen 500 mg tablet 1,000 mg PO Q6H PRN Pain 04/13/24 05/24/24 History (Tylenol Extra Strength) benzonatate 100 mg capsule 100 mg PO Q6H PRN cough #20 caps 04/15/24 05/24/24 Rx guaifenesin 600 mg tablet, 600 mg PO Q12 PRN cough #20 tabs 04/15/24 05/24/24 Rx extended release 12 hr (Mucinex) buspirone 5 mg tablet 5 mg PO AMHS 05/13/24 05/24/24 History ondansetron HCl 4 mg tablet 4 mg PO UD PRN Nausea And Vomiting 05/13/24 05/24/24 History aspirin 81 mg tablet,delayed 81 mg PO BID 35 days #70 tabs 06/02/24 05/24/24 Rx release ferrous sulfate 325 mg (65 mg 325 mg PO DAILY #30 tabs 10/09/24 Rx iron) tablet,delayed release metoprolol succinate 25 mg 25 mg PO HS 30 days #30 tabs 06/02/24 Rx tablet,extended release 24 hr metoprolol succinate 25 mg 37.5 mg (1.5 x 25 mg) PO QAM 30 06/02/24 Rx tablet,extended release 24 hr days #45 tabs torsemide 5 mg tablet 5 mg PO DAILY #30 tabs 06/02/24 Rx Hospital Stay Data Consultations 05/24/24 13:06 ED Decision to Admit Stat 05/24/24 13:37 Consult Orthopedic Surgery Routine 05/26/24 07:38 Consult Cardiology Routine 05/27/24 14:16 Consult Nephrology Routine Procedures Performed Operation Date: 05/25/24 14:20 Actual Procedures p Right Hip Fracture Long Trochanteric Nail(Right) - Hossein Stevenson MD Diagnostic Imagining Performed 05/25/24 07:00 FL hip RT 2-3V Routine Pending Results Patient Have Any Pending Studies at Discharge: No Discharge Instructions Given to Patient (Per Discharging Provider) May weightbear as tolerated Routine wound care to Hip incisions. Dry dressing change daily. You were admitted to [facility] for hip fracture and underwent repair on 05/25. Your course was complicated by kidney injury and atrial fibrillation. Your medications were adjusted as follows: CHANGE your Metoprolol XL to 37.5mg in the morning and 25mg at bedtime CHANGE your Aspirin 81mg to two times a day until 07/06/2024 to help prevent clots while you recover DISCONTINUE your torsemide 20mg daily until you follow up with nephrology START iron supplement daily for anemia Plan to START Torsemide 5mg daily as follows: -If systolic blood pressure consistently greater than 100 and heart rate less than 100, please start Torsemide 5mg on 06/04/2023 -If neither is met (blood pressure less than 100 and heart rates greater than 100, please reevaluate and consider resumption on 06/07. Please follow up with nephrology within 1 week of leaving [facility] with labs prior to visit, or in 3 weeks times (whichever is soonest) Total Time Total Time Spent Total Time Spent (In Minutes): 45
--- NOTE | 2024-06-02 11:30 | Nephrology Progress Note ---
Date of Service June 02, 2024 Assessment & Plan (1) TIFFANY (acute kidney injury): Plan: resolved stage stage 2 nonoliguric TIFFANY which happened after hospital admission on background CKD 3B ( baseline creat around 1.4) from DM and other medical issues. better than baseline today but w/ hypotension enough to need albumin. TIFFANY is from classic ATN. This happened around 05/25 and 05/26 in the perioperative period with super low BP and Low Hgb in a very susceptible elderly female with pre existing CKD and many comorbid Dz. p/w creat 2.3 05/13; peak at 3.1 on 05/28; today back to 1.1 >>Still has e/o volume overload. BP is still on low side but somewhat better at least much of the time; HR improved w/ increased metoprolol dose On Room air. >>s/p IV albumin 05/31 cardiology note reviewed from today > recommend d/c on just increased BB dose and I concur >takes torsemide 20 mg daily as OP > suggest 5 mg daily when we start but would give a few days to tolerate BB NEPHRO D/C RECS -metoprolol dose as per cardiology -resume torsemide 5 mg (not 20 mg ) daily on 06/04 provided SBP consistently > 100 and HR consistently <100; if neither criterion met, reevaluate to start torsemide 5 mg daily on 06/07 w/ same BP/HR criteria. -nephro hospital d/c appt w/ me 1 wk after [facility] d/c or 3 wks after hospital d/c whichever is sooner; neph nurse to order bmp, uACM, ACR, hgb Care coordinated with Dr Gibbs re d/c recs particularly torsemide mg and administration parameters and neph f/u via TText; we are in agreement. (2) Chronic renal failure (CRF), stage 3b: Plan: baseline around 1.4 but had recent TIFFANY. better than baseline currently. diuretic plan as above. Susceptible to TIFFANY because of many Dz she has (3) Closed intertrochanteric fracture of right hip: Plan: S/p surgery 05/25 with perioperative Severe anemia and low BP Admission and Anticipated Discharge Date Admission Date: May 24, 2024 Subjective lying flat, getting ready for hospital d/c; c/o sore /irritated buttocks and generalized body aches lying flat; denies dyspnea, orthopnea, cough. for d/c today to [facility]; d/c recs discussed via TText previously w/ Dr Gibbs Review of Systems 2 Review of Systems: All systems reviewed & are unremarkable except as noted in Subjective Physical Exam 2 Constitutional: well developed (lying flat on RA), well nourished, + acute distress, + frail appearing and cooperative Eyes: EOM intact bilaterally ENMT: Mouth: + dry oral mucous membranes Respiratory: normal respiratory effort Auscultation: lungs clear to auscultation bilaterally and + diminished lung sounds Cardiovascular: Rate/Rhythm: + irregularly irregular Extremities: + edema (1-2+ dependent; trace peripheral) Musculoskeletal: Extremities: strength 5/5 throughout Skin: no rashes, warm and dry Psychiatric: Orientation: alert and oriented x 3 Results & Data Vital Signs (Past 12 Hours) Vital Signs Temp Pulse Pulse Resp BP Pulse Ox O2 Del Method 06/02/24 09:05 Room Air 06/02/24 07:27 36.7 C 90 20 123/67 95 Room Air 06/02/24 07:06 100 H 06/02/24 03:30 36.6 C 84 20 112/69 95 Room Air Laboratory Results 06/02/24 06:47 06/02/24 06:47
[2024-06-02 11:46] VITALS: BP 112/68
--- NOTE | 2024-06-09 08:59 | Coding Query ---
CODING QUERY To promote full compliance with coding requirements relating to patient care, provider participation is requested in all cases of tumbler tender uncertainty. Please assist us with the question(s) below: Coding Question(s): PN 05/25/24 lists Acute on Chronic Diastolic CHF. PN 05/26/24 lists Chronic Diastolic CHF. Was the Acute dropped because this was not an actual dx or was it treated and no longer Acute? Physician's Response(s): The patient did not have acute heart failure on presentation. Thank you Estefanía Alcantar Principal Diagnosis: "that condition established after study, to be chiefly responsible for occasioning the admission of the patient to the hospital for care." Co-Existing Principal Diagnosis: "when two or more diagnoses equally meet the criteria for principal diagnosis as determined by the circumstances of admission, diagnostic work up, and/or therapy provided, and the Alphabetic Index, Tabular List, or another coding guideline does not provide sequencing direction, any one of the diagnoses may be sequenced first." "When the physician has documented what appears to be a current diagnosis in the body of the record, but has not included the diagnosis in the final diagnostic statement, the physician should be asked whether the diagnosis should be added." (Source Coding [facility] 2 QTR90. p3-4) KACIE
== END 2024-06-02 12:13 | DRG 480 ==
LOC: ED 11:52 → EDINP 13:37 → SUATTDRO 13:37 → EDINP 15:35 → 2W 05-25 18:25 → 2S 05-26 18:11

== ENCOUNTER 2024-07-15 16:00 | Inpatient (IN) ==
[2024-07-15] MEDS: SODIUM CHLORIDE 0.9% 500 ML IV ONE ×3 (16:20→22:27)
[2024-07-15] MEDS: ACETAMINOPHEN 1,000 MG/100 ML VIAL IV STA (16:20)
[2024-07-15 16:33] LABS: Basophils # (auto) 0.03 K/uL (0.00-0.20); Basophils % (auto) 0.2 %; Eosinophils # (auto) 0.08 K/uL (0.00-0.50); Eosinophils % (auto) 0.4 %; Hematocrit (blood only) 33.3 % (37.0-47.0); Hemoglobin 10.8 g/dl (12.0-16.0); Immature Granulocytes # (auto) 0.14 K/uL (0.01-0.20); Immature Granulocytes % (auto) 0.7 %; Lymphocytes # (auto) 0.64 K/uL (1.20-3.40); Lymphocytes % (auto) 3.3 %; Mean Corpuscular Hemoglobin 30.5 pg (25.0-34.0); Mean Corpuscular Hgb Conc 32.4 g/dL (32.0-36.0); Mean Corpuscular Volume 94.1 fL (80.0-100.0); Mean Platelet Volume 10.9 fL (9.4-12.4); Monocytes # (auto) 1.35 K/uL (0.11-0.59); Monocytes % (auto) 7.1 %; Neutrophils # (auto) 16.88 K/uL (1.40-6.50); Neutrophils % (auto) 88.3 %; Nucleated RBC # (auto) 0.03 K/uL (0.00-0.12); Nucleated RBC % (auto) 0.2 %; Platelet Count 248 K/uL (130-400); RDW Coefficient of Variation 17.7 % (11.5-14.5); Red Blood Count 3.54 M/uL (4.20-5.40); White Blood Count 19.12 K/ul (4.8-10.8)
--- NOTE | 2024-07-15 16:34 | Emergency Department Note ---
Impression & Plan Confusion, Sepsis, Acute UTI ED Provider Note Provider: Tremayne Hadley MD CHIEF COMPLAINT: Confused, weakness HISTORY OF PRESENT ILLNESS: Patient is a 83-year-old female past medical history of CKD, diastolic heart failure, paroxysmal atrial fibrillation status post Watchman, Mnire's disease, and recent hospitalization for right femur fracture and hip fracture in April of this year presenting via ambulance from [facility]. Patient wonders ability for rehab for the last 5 weeks. Evidently today has not been herself was noted to be maybe low but hypotensive and confused and sent here for further evaluation. Patient her self not a good historian. She states that it is August when its actually June. Denies any pain however any significant nausea. No traumas reported. Patient son later arrives provides additional history. States his mother seemed fine yesterday but visited this morning she seemed little bit off. Came back after lunch she went to bed he seemed not to be breathing as well was minimally responsive. Is awake and talking now states that she does appear little bit better but still not herself. PAST MEDICAL HISTORY: As noted above MEDICATIONS: Reviewed home medications SOCIAL HISTORY: From [facility] nursing facility PHYSICAL EXAM: GENERAL: alert and oriented to person in no acute distress on stretcher Head: normocephalic and atraumatic EYES: No injection, discharge or icterus. PERRL, EOMI. NECK: Trachea midline. Supple. ENT: Mucous membranes pink and moist. LUNGS: Airway patent. No retractions. Breath sounds clear HEART: Regular tachycardic rate and rhythm. No chest wall tenderness ABDOMEN: Soft and non-tender, without guarding or rebound. SKIN: Acyanotic, warm, dry, without rashes EXTREMITIES: Without swelling, tenderness or deformity NEUROLOGICAL: Moves all extremities. No facial droop or slurred speech. Not oriented to time and events. EK bpm sinus tachycardia. No PVC or PAC. No acute ST segment elevation with some nonspecific T wave changes inferiorly. QTc 430. CONTINUOUS CARDIAC MONITORING: was ordered and showed a heart rate of 120s-130s bpm in sinus tachycardia (although at some points a question of this might be hidden atrial flutter as it is very nonweightbearing) Patient's laboratory studies and imaging reviewed. Differential includes Infection, dehydration, metabolic abnormality, hypo/hyperglycemia, electrolyte disturbance, anemia, hypoxia, cardiac sources, neurologic, as well as other pathologies. IMPRESSION/MEDICAL DECISION MAKING: Patient with declined today but no trauma reported according to son. Denies any pain. No evidence of trauma. No significant swelling of the lower extremities. Given her fever and tachycardia given some IV Tylenol as well as a small amount of IV fluid 500 mL for hydration. Avoiding further IV boluses as she has a history of CHF. CT of the head completed without acute findings per radiology report given that she did have some confusion. No bleed noted. Did not seem focal on exam. Does not seem meningitic and moving her head. Does have a new leukocytosis of 19. Lactates not elevated however. Chronic CKD 1.4 continues but without other electrolyte abnormality. No chest pain reported and on EKG no ST elevation but mild troponin elevation 29 question demand; doubt PE/ACS. Do question there might be an occult a flutter rather than just sinus tachycardia as it does not vary very much but will not aggressively treat given her sepsis at this point. UA and COVID/respiratory panel sent to look for infectious source what appears to be some sepsis. Chest x-ray completed as she is have a little bit of oxygen requirement right now. Son does state that before hospitalization in April she was always on oxygen all the time but is not on oxygen regularly anymore. Based on prior microbiology and that she is tolerated Ancef in the past, given a dose of cefepime for antibiotic broad-spectrum coverage. UA on straight cath consistent for infection and believe this is urosepsis. Again covered with cefepime at this point. Will bring in for further care. Patient does require hospitalization given her confusion with her urosepsis. Son updated. Hospitalist team contacted. Later with blood pressures in the 90s cautiously given a second 500 cc IV fluid bolus for a liter of normal saline administered. Appears to be tolerating this well. DIAGNOSIS: Sepsis, confusion, acute UTI DISPOSITION: Hospitalist will evaluate Son updated at bedside. Critical Care I have personally spent 44 minutes of critical care time in the direct management of this patient. This includes bedside care, interpretation of diagnostic studies, and testing, discussion with consultants, patient, and family members, and other required patient management activities. These 44 minutes is in excess of all separately billable procedures. 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 difficile diarrhea (Acute) Adult failure to thrive (Acute) Generalized weakness (Acute) S/P mitral valve clip implantation Presence of Watchman left atrial appendage closure device CAD (coronary artery disease) Cardiac pacemaker in situ (Acute) CKD (chronic kidney disease) (Acute) Anemia (Acute) TIA (transient ischemic attack) (Acute) Depression Hypothyroidism RADHA (obstructive sleep apnea) SSS (sick sinus syndrome) Chronic diastolic (congestive) heart failure CKD (chronic kidney disease), stage III TIA (transient ischemic attack) Anemia (Acute) Leukocytosis (Acute) Chronic anticoagulation (Acute) Acute renal insufficiency Severe mitral insufficiency Acute on chronic diastolic heart failure Paroxysmal atrial fibrillation Stroke-like symptoms (Acute) Acute on chronic anemia COVID-19 (Acute) COVID-19 (Acute) History of tobacco abuse Asthma, moderate persistent (Chronic) Meniere disease (Chronic) Atrial fibrillation and flutter (Chronic) History of laminectomy (Chronic) H/O sinus surgery (Chronic) Hx of neck surgery (Chronic) History of repair of left rotator cuff (Chronic) Medical History Generalized weakness Pericardial effusion Low back pain Angio-edema Nausea Leukocytosis Near syncope Hypotension Dehydration TIFFANY (acute kidney injury) Near syncope Elevated brain natriuretic peptide (BNP) level Pneumonia Atrial flutter Carotid artery aneurysm Prolonged QT interval Atrial fibrillation with RVR DM type 2 (diabetes mellitus, type 2) Encounter for pre-operative examination Cholelithiasis Cholecystitis Chest pain at rest Pulmonary emphysema Osteoarthritis of right knee HTN (hypertension) Surgical History History of hysterectomy History of cholecystectomy Family History Father Diabetes Social History Smoking Status: Former smoker Tobacco Type: Cigarettes packs per day: 1.5; Cigarettes Per Day: 30; Second Hand Exposure: No; Do You Dip or Chew Tobacco: No; Hx Alcohol Use: No Hx Substance Use: No Preferred Language: Japanese Communication Ability: Effective Firmware 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 cephalexin Allergy Intermediate Rash/Hives/ Verified 04/13/24 00:16 Itching. furosemide Allergy Intermediate Rash/Hives/ Verified 04/13/24 00:16 Itching. gabapentin Allergy Intermediate Rash/Hives/ Verified 04/13/24 00:16 Itching. pregabalin Allergy Intermediate Rash/Hives/ Verified 04/13/24 00:16 Itching. meclizine Allergy Unknown Unknown Verified 04/13/24 00:16 methylprednisolone Allergy Unknown Rash/Hives/ Verified 04/13/24 00:16 Itching. Penicillins Allergy Unknown Unknown. Verified 04/13/24 00:16 prednisone Allergy Unknown Rash/Hives/ Verified 04/13/24 00:16 Itching. vancomycin Allergy Unknown Jodi Verified 04/13/24 00:16 syn. . nickel Allergy Unknown Verified 04/13/24 00:16 dexamethasone AdvReac Intermediate Steroid Verified 04/13/24 00:16 psychosis. Home Meds Home Medications Medication Instructions Recorded Confirmed montelukast 10 mg tablet 10 mg PO PM 04/08/19 07/15/24 atorvastatin 20 mg tablet 20 mg PO QAM 11/26/21 07/15/24 cholecalciferol (vitamin D3) 50 100 mcg PO QAM 11/26/21 07/15/24 mcg (2,000 unit) capsule (Vitamin D3) levalbuterol tartrate 45 1 puff inhalation Q4H PRN 08/07/22 07/15/24 mcg/actuation aerosol inhaler Shortness Of Breath Or Wheezing (Xopenex HFA) ipratropium bromide 21 mcg (0.03 2 spray intranasal DAILY PRN 12/06/22 07/15/24 %) nasal spray rhinorrhea allopurinol 300 mg tablet 300 mg PO HS 08/14/23 07/15/24 levothyroxine 175 mcg tablet 175 mcg PO DAILYBB 03/21/24 07/15/24 fentanyl 12 mcg/hr transdermal 12 mcg transdermal Q3D 03/23/24 07/15/24 patch buspirone 5 mg tablet 5 mg PO AMHS 05/13/24 07/15/24 acetaminophen 500 mg tablet 500 mg PO Q8 PRN Fever Or Pain 07/15/24 07/15/24 aspirin 81 mg tablet,delayed 81 mg PO QAM 07/15/24 07/15/24 release ferrous sulfate 325 mg (65 mg 325 mg PO QAM 07/15/24 07/15/24 iron) tablet,delayed release glycopyrrolate 9 mcg-formoterol 2 puff inhalation BID 07/15/24 07/15/24 4.8 mcg HFA aerosol inhaler (Bevespi Aerosphere) melatonin 5 mg tablet 5 mg PO HS 07/15/24 07/15/24 metoprolol succinate 25 mg 25 mg PO HS 07/15/24 07/15/24 tablet,extended release 24 hr metoprolol succinate 25 mg 37.5 mg PO QAM 07/15/24 07/15/24 tablet,extended release 24 hr oxycodone 5 mg tablet 5 mg PO Q6 PRN pain severe 9-10 07/15/24 07/15/24 pantoprazole 40 mg tablet,delayed 40 mg PO AMHS 07/15/24 07/15/24 release potassium chloride 10 mEq 10 meq PO BID 07/15/24 07/15/24 tablet,extended release sertraline 150 mg capsule 150 mg PO QAM 07/15/24 07/15/24 torsemide 10 mg tablet 20 mg PO DAILY 07/15/24 07/15/24 Previous Rx's Medication Instructions Recorded benzonatate 100 mg capsule 100 mg PO Q6H PRN cough #20 caps 04/15/24 guaifenesin 600 mg tablet, 600 mg PO Q12 PRN cough #20 tabs 04/15/24 extended release 12 hr (Mucinex) Results & Data (ED) Vital Signs Vital Signs - 24 hr 07/15/24 15:52 07/15/24 15:52 07/15/24 16:15 Temperature 38.9 C H Temperature Source Axillary Pulse Rate 136 H 137 H Pulse Rate [Apical] Respiratory Rate 25 H Blood Pressure 149/97 H Blood Pressure [Left Arm] Blood Pressure Mean 114 Blood Pressure Mean [Left Arm] Blood Pressure Position Semi-fowlers Pulse Oximetry 89 L 94 Oxygen Delivery Method Room Air Nasal Cannula Oxygen Flow Rate 2 Sepsis Recent Fever Within 48 Hours Yes Sepsis New/Unexplained Change in Mental Status Yes Sepsis Action Taken by Nursing Physician Notified 07/15/24 17:40 Temperature 36.6 C Temperature Source Axillary Pulse Rate Pulse Rate [Apical] 122 H Respiratory Rate Blood Pressure Blood Pressure [Left Arm] 100/57 L Blood Pressure Mean Blood Pressure Mean [Left Arm] 71 Blood Pressure Position Pulse Oximetry Oxygen Delivery Method Oxygen Flow Rate Sepsis Recent Fever Within 48 Hours Sepsis New/Unexplained Change in Mental Status Sepsis Action Taken by Nursing Laboratory Data 07/15/24 16:09 07/15/24 16:09 Lab Results 07/15/24 07/15/24 07/15/24 Range/Units 16:09 16:20 16:22 WBC 19.12 H (4.8-10.8) K/ul RBC 3.54 L (4.20-5.40) M/uL Hgb 10.8 L (12.0-16.0) g/dl Hct 33.3 L (37.0-47.0) % MCV 94.1 (80.0-100.0) fL MCH 30.5 (25.0-34.0) pg MCHC 32.4 (32.0-36.0) g/dL RDW Std Deviation 61.0 H (36.4-46.3) fL RDW Coeff of Francisco Javier 17.7 H (11.5-14.5) % Plt Count 248 (130-400) K/uL MPV 10.9 (9.4-12.4) fL Immature Gran % (Auto) 0.7 % Neut % (Auto) 88.3 % Lymph % (Auto) 3.3 % Linn % (Auto) 7.1 % Eos % (Auto) 0.4 % Baso % (Auto) 0.2 % Neut # (Auto) 16.88 H (1.40-6.50) K/uL Lymph # (Auto) 0.64 L (1.20-3.40) K/uL Linn # (Auto) 1.35 H (0.11-0.59) K/uL Eos # (Auto) 0.08 (0.00-0.50) K/uL Baso # (Auto) 0.03 (0.00-0.20) K/uL Immature Gran # (Auto) 0.14 (0.01-0.20) K/uL Absolute Nucleated RBC 0.03 (0.00-0.12) K/uL Nucleated RBC % (auto) 0.2 % Sodium 140 (136-145) mmol/L Potassium 4.7 (3.5-5.1) mmol/L Chloride 104 (98-107) mmol/L Carbon Dioxide 24 (21-32) mmol/L Anion Gap 12 H (3-11) BUN 43 H (6-23) mg/dl Creatinine 1.43 H (0.6-1.2) mg/dl Est Cr Clr Drug Dosing 29.9 ml/min eGFR 36.39 BUN/Creatinine Ratio 30.1 H (10-20) Glucose 170 H (70-99(Fasting)) mg/dl Lactate (0.4-2.0) mmol/L Calcium 9.3 (8.6-10.3) mg/dl Total Bilirubin 0.7 (0.2-1.0) mg/dl AST 66 H (13-39) U/L ALT 22 (7-52) U/L Alkaline Phosphatase 216 H (34-104) U/L Troponin I High Sens 29.0 H (0-14) pg/ml C-Reactive Protein 3.74 H (0-0.5) mg/dl Total Protein 7.0 (6.0-8.3) gm/dl Albumin 3.9 (3.4-5.0) gm/dl Globulin 3.1 (2.5-4.0) gm/dl Albumin/Globulin Ratio 1.3 (0.9-2) Lipase 15 (11-82) U/L Procalcitonin 0.34 (0-0.5) ng/ml Urine Color Yellow Urine Appearance Clear (Clear) Urine pH 7.0 (4.5-7.5) Ur Specific [place] 1.009 (1.000-1.030) Urine Protein Negative (Negative) Urine Glucose (UA) Negative (Negative) Urine Ketones Negative (Negative) Urine Blood Negative (Negative) Urine Nitrite Positive A (Negative) Urine Bilirubin Negative (Negative) Urine Urobilinogen Negative (Negative) Ur Leukocyte Esterase 3+ H (Negative) Urine WBC (Auto) >50 H (0-5) /hpf Urine RBC (Auto) 0-2 (0-2) /hpf U Hyaline Cast (Auto) 0-2 (0-2) /lpf U Epithel Cells (Auto) 0-2 (0-2) /hpf Urine Bacteria (Auto) 4+ H (None Seen) Adenovirus (PCR) Not Detected (NotDetected) B. pertussis DNA (PCR) Not Detected (NotDetected) B.parapertussis DNA PCR Not Detected (NotDetected) C. pneumoniae DNA (PCR) Not Detected (NotDetected) Coronavirus OC43 (PCR) Not Detected (NotDetected) Coronavirus HKU1 (PCR) Not Detected (NotDetected) Coronavirus 229E (PCR) Not Detected (NotDetected) SARS-CoV-2 (PCR) Not Detected (NotDetected) Coronavirus NL63 (PCR) Not Detected (NotDetected) Human Metapneumovir PCR DETECTED A (NotDetected) Influenza Type A (PCR) Not Detected (NotDetected) Influenza Type B (PCR) Not Detected (NotDetected) M. pneumoniae (PCR) Not Detected (NotDetected) Parainfluenza 1 (PCR) Not Detected (NotDetected) Parainfluenza 2 (PCR) Not Detected (NotDetected) Parainfluenza 3 (PCR) Not Detected (NotDetected) Parainfluenza 4 (PCR) Not Detected (NotDetected) RSV (PCR) Not Detected (NotDetected) Entero/Rhino (PCR) Not Detected (NotDetected) 07/15/24 Range/Units 16:42 WBC (4.8-10.8) K/ul RBC (4.20-5.40) M/uL Hgb (12.0-16.0) g/dl Hct (37.0-47.0) % MCV (80.0-100.0) fL MCH (25.0-34.0) pg MCHC (32.0-36.0) g/dL RDW Std Deviation (36.4-46.3) fL RDW Coeff of Francisco Javier (11.5-14.5) % Plt Count (130-400) K/uL MPV (9.4-12.4) fL Immature Gran % (Auto) % Neut % (Auto) % Lymph % (Auto) % Linn % (Auto) % Eos % (Auto) % Baso % (Auto) % Neut # (Auto) (1.40-6.50) K/uL Lymph # (Auto) (1.20-3.40) K/uL Linn # (Auto) (0.11-0.59) K/uL Eos # (Auto) (0.00-0.50) K/uL Baso # (Auto) (0.00-0.20) K/uL Immature Gran # (Auto) (0.01-0.20) K/uL Absolute Nucleated RBC (0.00-0.12) K/uL Nucleated RBC % (auto) % Sodium (136-145) mmol/L Potassium (3.5-5.1) mmol/L Chloride (98-107) mmol/L Carbon Dioxide (21-32) mmol/L Anion Gap (3-11) BUN (6-23) mg/dl Creatinine (0.6-1.2) mg/dl Est Cr Clr Drug Dosing ml/min eGFR BUN/Creatinine Ratio (10-20) Glucose (70-99(Fasting)) mg/dl Lactate 1.1 (0.4-2.0) mmol/L Calcium (8.6-10.3) mg/dl Total Bilirubin (0.2-1.0) mg/dl AST (13-39) U/L ALT (7-52) U/L Alkaline Phosphatase (34-104) U/L Troponin I High Sens (0-14) pg/ml C-Reactive Protein (0-0.5) mg/dl Total Protein (6.0-8.3) gm/dl Albumin (3.4-5.0) gm/dl Globulin (2.5-4.0) gm/dl Albumin/Globulin Ratio (0.9-2) Lipase (11-82) U/L Procalcitonin (0-0.5) ng/ml Urine Color Urine Appearance (Clear) Urine pH (4.5-7.5) Ur Specific [place] (1.000-1.030) Urine Protein (Negative) Urine Glucose (UA) (Negative) Urine Ketones (Negative) Urine Blood (Negative) Urine Nitrite (Negative) Urine Bilirubin (Negative) Urine Urobilinogen (Negative) Ur Leukocyte Esterase (Negative) Urine WBC (Auto) (0-5) /hpf Urine RBC (Auto) (0-2) /hpf U Hyaline Cast (Auto) (0-2) /lpf U Epithel Cells (Auto) (0-2) /hpf Urine Bacteria (Auto) (None Seen) Adenovirus (PCR) (NotDetected) B. pertussis DNA (PCR) (NotDetected) B.parapertussis DNA PCR (NotDetected) C. pneumoniae DNA (PCR) (NotDetected) Coronavirus OC43 (PCR) (NotDetected) Coronavirus HKU1 (PCR) (NotDetected) Coronavirus 229E (PCR) (NotDetected) SARS-CoV-2 (PCR) (NotDetected) Coronavirus NL63 (PCR) (NotDetected) Human Metapneumovir PCR (NotDetected) Influenza Type A (PCR) (NotDetected) Influenza Type B (PCR) (NotDetected) M. pneumoniae (PCR) (NotDetected) Parainfluenza 1 (PCR) (NotDetected) Parainfluenza 2 (PCR) (NotDetected) Parainfluenza 3 (PCR) (NotDetected) Parainfluenza 4 (PCR) (NotDetected) RSV (PCR) (NotDetected) Entero/Rhino (PCR) (NotDetected) Administered Medications Sodium Chloride (Nss) 500 mls @ 999 mls/hr IV .Q31M ONE Stop: 07/15/24 18:18 Last Admin: 07/15/24 17:50 Dose: 999 mls/hr Documented By: ROSEMARY Discontinued Medications Sodium Chloride (Nss) 500 mls @ 999 mls/hr IV .Q31M ONE Stop: 07/15/24 16:43 Last Infusion: 07/15/24 17:07 Dose: Infused Documented By: Admin: 07/15/24 16:20 Dose: 999 mls/hr Documented By: AUREA Acetaminophen (Ofirmev) 1,000 mg in 100 mls @ 400 mls/hr IV NOW STA Stop: 07/15/24 16:27 Last Infusion: 07/15/24 16:38 Dose: Infused Documented By: Admin: 07/15/24 16:20 Dose: 400 mls/hr Documented By: AUREA Cefepime HCl (Maxipime 2000mg) 2,000 mg in 20 mls @ 5 mls/min IV NOW STA; Protocol Stop: 07/15/24 16:37 Last Admin: 07/15/24 16:43 Dose: 5 mls/min Documented By: LCD Imaging Data Radiologist's Impression: Chest X-Ray 07/15/24 16:10 EXAM: Radiograph of the Chest 1 View INDICATION: Fever. TECHNIQUE: Frontal view of the chest. COMPARISON: 05/28/2024 FINDINGS: Lungs and pleural spaces: There is an approximate 3.1 x 3.7 cm groundglass infiltrate in the right midlung. There was some vague density in this area previously but is now more defined. Stable mild scarring in the bases. No pleural effusion or pneumothorax. Heart: Stable cardiomegaly and intact atrial and ventricular pacing leads. Mediastinum: Normal contour. Bones/joints: No fracture, erosion or dislocation. Soft tissues: No abnormality noted. No radiopaque foreign body noted. Upper abdomen: No abnormality noted. IMPRESSION: Focus of vague groundglass density in the right lung most concerning for pneumonia including viral etiologies. ACT 112: Negative or not required by law. Electronically signed by Yeimi Aponte 07-15-2024 5:[address] 07/15/24 16:10 EXAM: CT Head Without Intravenous Contrast INDICATION: Fever. Altered mental status. TECHNIQUE: Axial computed tomography images of the head/brain without intravenous contrast. Sagittal and/or coronal reformats are provided. Sagittal and coronal reformatted images were created and reviewed. This CT exam was performed using one or more of the following dose reduction techniques: automated exposure control, adjustment of the mA and/or kV according to patient size, and/or use of iterative reconstruction technique. COMPARISON: 03/07/2024 FINDINGS: Limitations: None. Brain and extra-axial spaces: There is age appropriate cortical atrophy and chronic ischemic periventricular white matter hypodensity. No acute infarct, hemorrhage or mass noted. Bones/joints: No acute changes. Soft tissues: No significant abnormality noted. Vasculature: No acute abnormality noted. Sinuses: Stable opacified maxillary sinuses. Mastoid air cells: No mastoid effusion. Orbits: No significant abnormality noted. IMPRESSION: 1. Cerebral atrophy. No acute changes. 2. Stable chronic bilateral maxillary sinusitis. ACT 112: Negative or not required by law. Electronically signed by Yeimi Aponte 07-15-2024 4:48 PM Discharge Plan Visit Data Chief Complaint: Illness Stated Complaint: ILLNESS ED Provider: Tremayne Hadley Discharge Problem: Confusion, Sepsis, Acute UTI Patient Disposition: Being Evaluated by Hospitalist Forms Stand Alone Forms: [facility] Prescriptions Prescriptions: No Action montelukast 10 mg tablet 10 mg PO PM ipratropium bromide 21 mcg (0.03 %) spray,non-aerosol 2 spray INTRANASAL DAILY PRN (Reason: rhinorrhea ) atorvastatin 20 mg tablet 20 mg PO QAM cholecalciferol (vitamin D3) [Vitamin D3] 50 mcg (2,000 unit) Capsule 100 mcg PO QAM levalbuterol tartrate [Xopenex HFA] 45 mcg/actuation Hfa Aerosol Inhaler 1 puff INHALATION Q4H PRN (Reason: Shortness Of Breath Or Wheezing) Rx Instructions: RINSE MOUTH THOROUGHLY AFTER USE AND SPIT allopurinol 300 mg tablet 300 mg PO HS levothyroxine 175 mcg tablet 175 mcg PO DAILYBB fentanyl 12 mcg/hr patch 72 hour 12 mcg transdermal Q3D Hold Instructions: Resume if indicated guaifenesin [Mucinex] 600 mg Tablet Extended Release 12hr 600 mg PO Q12 PRN (Reason: cough) Qty: 20 0RF benzonatate 100 mg capsule 100 mg PO Q6H PRN (Reason: cough) Qty: 20 0RF sertraline 150 mg Capsule 150 mg PO QAM torsemide 10 mg Tablet 20 mg PO DAILY potassium chloride 10 mEq Tablet Extended Release 10 meq PO BID oxycodone 5 mg tablet 5 mg PO Q6 PRN (Reason: pain severe 9-10) Rx Instructions: Ongoing therapy metoprolol succinate 25 mg Tablet Extended Release 24 Hr 25 mg PO HS metoprolol succinate 25 mg Tablet Extended Release 24 Hr 37.5 mg PO QAM pantoprazole 40 mg tablet,delayed release (DR/EC) 40 mg PO AMHS melatonin 5 mg Tablet 5 mg PO HS ferrous sulfate 325 mg (65 mg iron) tablet,delayed release (DR/EC) 325 mg PO QAM aspirin [Aspirin Low-Strength] 81 mg Tablet,Delayed Release (Dr/Ec) 81 mg PO QAM Bevespi Aerosphere 9-4.8 mcg Hfa Aerosol Inhaler 2 puff INHALATION BID acetaminophen 500 mg Tablet 500 mg PO Q8 MDD 3G PRN (Reason: Fever Or Pain) buspirone 5 mg tablet 5 mg PO AMHS Referrals Referrals: Florentin Calvo DO [Primary Care Provider] - Discharge Problem: Sepsis Qualifiers: Sepsis type: sepsis due to unspecified organism Sepsis acute organ dysfunction status: with acute organ dysfunction Severe sepsis acute organ dysfunction type: unspecified
[2024-07-15] MEDS: CEFEPIME 2000MG 2,000 MG/20 ML SYR IV STA (16:43)
[2024-07-15 16:44] LABS: Appearance Urine Clear (Clear); Bacteria Urine Automated 4+ (None Seen); Bilirubin Urine Negative (Negative); Blood Urine Negative (Negative); Cast Urine Automated 0-2 /lpf (0-2); Color Urine Yellow; Epithelial Cell Urine Auto 0-2 /hpf (0-2); Glucose Urine UA Negative (Negative); Ketones Urine Negative (Negative); Leukocyte Esterase Urine 3+ (Negative); Nitrite Urine Positive (Negative); Protein Urine Negative (Negative); RBC Urine Automated 0-2 /hpf (0-2); Specific Gravity Urine 1.009 (1.000-1.030); Urobilinogen Urine Negative (Negative); WBC Urine Automated >50 /hpf (0-5)
--- NOTE | 2024-07-15 16:49 | CT Scan Report ---
EXAM: CT Head Without Intravenous Contrast INDICATION: Fever. Altered mental status. TECHNIQUE: Axial computed tomography images of the head/brain without intravenous contrast. Sagittal and/or coronal reformats are provided. Sagittal and coronal reformatted images were created and reviewed. This CT exam was performed using one or more of the following dose reduction techniques: automated exposure control, adjustment of the mA and/or kV according to patient size, and/or use of iterative reconstruction technique. COMPARISON: 03/07/2024 FINDINGS: Limitations: None. Brain and extra-axial spaces: There is age appropriate cortical atrophy and chronic ischemic periventricular white matter hypodensity. No acute infarct, hemorrhage or mass noted. Bones/joints: No acute changes. Soft tissues: No significant abnormality noted. Vasculature: No acute abnormality noted. Sinuses: Stable opacified maxillary sinuses. Mastoid air cells: No mastoid effusion. Orbits: No significant abnormality noted. IMPRESSION: 1. Cerebral atrophy. No acute changes. 2. Stable chronic bilateral maxillary sinusitis. ACT 112: Negative or not required by law. Electronically signed by Yeimi Aponte 07-15-2024 4:48 PM
[2024-07-15 16:50] LABS: Albumin Globulin Ratio 1.3 (0.9-2); Albumin Level 3.9 gm/dl (3.4-5.0); BUN Creatinine Ratio 30.1 (10-20); Bilirubin,Total 0.7 mg/dl (0.2-1.0); C Reactive Protein 3.74 mg/dl (0-0.5); Calcium 9.3 mg/dl (8.6-10.3); Creatinine Clr Calc Pharmacy 29.9 ml/min; Globulin 3.1 gm/dl (2.5-4.0); Potassium 4.7 mmol/L (3.5-5.1)
--- NOTE | 2024-07-15 17:14 | XRay Report ---
EXAM: Radiograph of the Chest 1 View INDICATION: Fever. TECHNIQUE: Frontal view of the chest. COMPARISON: 05/28/2024 FINDINGS: Lungs and pleural spaces: There is an approximate 3.1 x 3.7 cm groundglass infiltrate in the right midlung. There was some vague density in this area previously but is now more defined. Stable mild scarring in the bases. No pleural effusion or pneumothorax. Heart: Stable cardiomegaly and intact atrial and ventricular pacing leads. Mediastinum: Normal contour. Bones/joints: No fracture, erosion or dislocation. Soft tissues: No abnormality noted. No radiopaque foreign body noted. Upper abdomen: No abnormality noted. IMPRESSION: Focus of vague groundglass density in the right lung most concerning for pneumonia including viral etiologies. ACT 112: Negative or not required by law. Electronically signed by Yeimi Aponte 07-15-2024 5:14 PM
[2024-07-15 17:24] LABS: Adenovirus PCR Not Detected (NotDetected); Bordetella parapertussis PCR Not Detected (NotDetected); Bordetella pertussis PCR Not Detected (NotDetected); Chlamydia pneumoniae PCR Not Detected (NotDetected); Coronavirus 229E PCR Not Detected (NotDetected); Coronavirus CoV-2 (COVID19)PCR Not Detected (NotDetected); Coronavirus HKU1 PCR Not Detected (NotDetected); Coronavirus NL63 PCR Not Detected (NotDetected); Coronavirus OC43PCR Not Detected (NotDetected); Human Metapneumovirus PCR DETECTED (NotDetected); Influenza A PCR Not Detected (NotDetected); Influenza B PCR Not Detected (NotDetected); Mycoplasma pneumoniae PCR Not Detected (NotDetected); Parainfluenza Virus 1 PCR Not Detected (NotDetected); Parainfluenza Virus 2 PCR Not Detected (NotDetected); Parainfluenza Virus 3 PCR Not Detected (NotDetected); Parainfluenza Virus 4 PCR Not Detected (NotDetected); Respiratory Syncytial VirusPCR Not Detected (NotDetected); Rhinovirus/Enterovirus PCR Not Detected (NotDetected)
--- NOTE | 2024-07-15 17:50 | History & Physical Report ---
Date of Service July 15, 2024 Assessment & Plan (1) Acute UTI: (2) Sepsis: (3) Confusion: (4) Persistent atrial fibrillation with rapid ventricular response: (5) Weakness: (6) Acute respiratory failure: Plan: Patient is 83 year old female with PMH DM II, CKD III, hypothyroidism, polyneuropathy, PVD, HLD, RADHA, moderate persistent asthma, nocturnal hypoxemia, COPD, paroxysmal atrial fibrillation s/p Watchman procedure, sick sinus syndrome s/p pacemaker placement, pulmonary hypertension, chronic diastolic CHF, left carotid artery aneurysm, aortic atherosclerosis, severe tricuspid regurgitation, s/p mitral valve clip for severe mitral regurgitation, GERD, history of TIA and others listed below presented to ER for weakness today. Sepsis Pneumonia Acute hypoxic respiratory failure COPD/asthma exacerbation UTI Human metapneumovirus In ER T: 38.9C, P: 136, R: 25, BP 149/97, 89% on room air up to 94% on 2 L nasal cannula WBC: 19. Lactate WNL. procalcitonin: 0.3 Bio[employer] respiratory panel:+human metapneumovirus UA:3+leuk esterase, 4+bacteria, >50 WBC CXR: Focus of vague groundglass density in the right lung most concerning for pneumonia including viral etiologies. CT head: no acute intracranial findings Urine culture pending In ER given 1000mL NSS, cefepime, 1 g Tylenol IV After IVF patient reassessed and HR: 129, R: 20, BP 117/69, 96% on 2 L via nasal cannula. Lungs with diffuse wheezing throughout, irregularly irregular per auscultation, rate 128, brisk capillary refill, patient alert and oriented x 3 Obtain blood cultures Review of patient's allergy list has Keflex and penicillin as allergy. Per chart review patient received cefazolin last month postop. She received cefepime in ER today. Cefepime, doxycycline Mucinex, incentive spirometry, Xopenex nebs Supplemental oxygen as needed Give additional IVF Will hold home torsemide and potassium supplement currently as is dry CBC, BMP in a.m. Persistent atrial fibrillation with rapid ventricular response Not on anticoagulation secondary to history of GIB in past and is s/p Watchman S/P Watchman Procedure SSS s/p PPM H/O of LV thrombus HR in 130s in ER. Patient without palpitations, SOB, CP and is mentating normally. Suspect secondary to underlying illness and dehydration which treating as above and with IVF. Resume home metoprolol succinate Troponin: 29 Trend troponin 03/21/2024 echo: EF: 55-60%, s/p mitral valve clip, mild mitral regurgitation, moderate mitral stenosis, left atrium severely dilated, moderate-severe tricuspid regurgitation magnesium: 1.8. Will replace to keep at or above 2.0 If uncontrolled consider cardiology consult CKD III Recent TIFFANY with peak creatinine of 3 on 05/28/2024 had trended down to 1.0 on discharge on 06/02/2024 BUN: 43. Cr: 1.4 (was 1.4 on 07/05/2024) IVF Avoid nephrotoxic agents when possible If worsening consider nephrology consult Recent Fall and Right Femur Fracture S/P intertrochanteric nail Currently at [facility] for rehab PT/OT eval Fall precautions Continue fentanyl patch for pain Chronic Diastolic CHF Severe Tricuspid Regurgitation Hx of severe mitral regurg s/p Mitral Clip Currently dry. Will hold home torsemide Monitor volume status Recent postop anemia Hgb: 10.8. Improved from 9.5 on 07/05/2024. Had low of 6.8 on 05/26/2024 and received 2 units PRBC during that hospitalization Continue iron supplement History mild Transaminitis: AST 66, alk phos: 216. Around patient's recent levels RADHA, Nocturnal Hypoxia: Continue baseline 2L O2 HS. DM II Diet-controlled. A1c was 6.9% on 03/24/24 Hypothyroidism: Continue levothyroxine DVT Prophylaxis SCDs Admit PCU DNR/DNI as per discussion with pt Follows with Dr Calvo for routine care Pt was seen and care coordinated with Dr Gomez. See addendum I spent a total of 85 minutes reviewing notes, outpatient records, labs, medication, coordinating, documenting and providing care for this patient excluding time spent in the performance of separately billed services. History of Present Illness Chief Complaint: weakness Primary Care Provider: Florentin Calvo DO Patient is 83 year old female with PMH DM II, CKD III, hypothyroidism, polyneuropathy, PVD, HLD, RADHA, moderate persistent asthma, nocturnal hypoxemia, COPD, paroxysmal atrial fibrillation s/p Watchman procedure, sick sinus syndrome s/p pacemaker placement, pulmonary hypertension, chronic diastolic CHF, left carotid artery aneurysm, aortic atherosclerosis, severe tricuspid regurgitation, s/p mitral valve clip for severe mitral regurgitation, GERD, history of TIA and others listed below presented to ER for weakness today. History obtained from inpatient chart review, patient and patient's son at bedside. Per inpatient chart review Patient with recent hospital admission 05/24/2024-06/02/2024 for right femur fracture after fall, s/p intertrochanteric nail, post-op course was complicated by postoperative blood loss anemia, hypotension, TIFFANY, A-fib with RVR. Cardiology and nephrology was consulted. Patient's metoprolol was increased, torsemide had been held but was instructed to be resumed upon discharge, patient received 2 units PRBC. She was discharged to [facility] for rehab. Patient reports is still at rehab and has been doing well and participating in physical therapy. She reports continued thigh pain and is now on fentanyl patch with some relief. Patient son states today he visited his mother on the morning and she seemed very sleepy and he thought seemed like she was short of breath. He reports returned in the afternoon today and found patient to be lethargic and short of breath. Staff evaluated patient and found to be febrile and was sent to ER for further evaluation. Patient's son reports since in ER patient is more alert and oriented than she was when he saw her earlier in the day. Currently patient reports feeling better than she did earlier but is still feeling tired and weak. She reports has had coughing today and feels a little bit wheezy. Reports chronic rhinorrhea and history chronic sinusitis and denies any worsening rhinorrhea or facial tenderness. Denies any noted palpitations, shortness of breath or chest pain. She admits decreased appetite today and had poor oral intake today. Denies abdominal pain. Denies N/V/D/C, LAWRENCE, dizziness, abdominal pain, extremity edema, rashes, urinary symptoms. Allergies Allergy/AdvReac Type Severity Reaction Status Date / Time Sulfa (Sulfonamide Allergy Severe Severe Verified 04/13/24 00:16 Antibiotics) rxn: rash and hives celecoxib Allergy Intermediate Rash/Hives/ Verified 04/13/24 00:16 Itching. cephalexin Allergy Intermediate Rash/Hives/ Verified 04/13/24 00:16 Itching. furosemide Allergy Intermediate Rash/Hives/ Verified 04/13/24 00:16 Itching. gabapentin Allergy Intermediate Rash/Hives/ Verified 04/13/24 00:16 Itching. pregabalin Allergy Intermediate Rash/Hives/ Verified 04/13/24 00:16 Itching. meclizine Allergy Unknown Unknown Verified 04/13/24 00:16 methylprednisolone Allergy Unknown Rash/Hives/ Verified 04/13/24 00:16 Itching. Penicillins Allergy Unknown Unknown. Verified 04/13/24 00:16 prednisone Allergy Unknown Rash/Hives/ Verified 04/13/24 00:16 Itching. vancomycin Allergy Unknown Jodi Verified 04/13/24 00:16 syn. . nickel Allergy Unknown Verified 04/13/24 00:16 dexamethasone AdvReac Intermediate Steroid Verified 04/13/24 00:16 psychosis. Home Medications Medication Instructions Recorded Confirmed Type montelukast 10 mg tablet 10 mg PO PM 04/08/19 07/15/24 History atorvastatin 20 mg tablet 20 mg PO QAM 11/26/21 07/15/24 History cholecalciferol (vitamin D3) 50 100 mcg PO QAM 11/26/21 07/15/24 History mcg (2,000 unit) capsule (Vitamin D3) levalbuterol tartrate 45 1 puff inhalation Q4H PRN 08/07/22 07/15/24 History mcg/actuation aerosol inhaler Shortness Of Breath Or Wheezing (Xopenex HFA) ipratropium bromide 21 mcg (0.03 2 spray intranasal DAILY PRN 12/06/22 07/15/24 History %) nasal spray rhinorrhea allopurinol 300 mg tablet 300 mg PO HS 08/14/23 07/15/24 History levothyroxine 175 mcg tablet 175 mcg PO DAILYBB 03/21/24 07/15/24 History fentanyl 12 mcg/hr transdermal 12 mcg transdermal Q3D 03/23/24 07/15/24 History patch benzonatate 100 mg capsule 100 mg PO Q6H PRN cough #20 caps 04/15/24 07/15/24 Rx guaifenesin 600 mg tablet, 600 mg PO Q12 PRN cough #20 tabs 04/15/24 07/15/24 Rx extended release 12 hr (Mucinex) buspirone 5 mg tablet 5 mg PO AMHS 05/13/24 07/15/24 History acetaminophen 500 mg tablet 500 mg PO Q8 PRN Fever Or Pain 07/15/24 07/15/24 History aspirin 81 mg tablet,delayed 81 mg PO QAM 07/15/24 07/15/24 History release ferrous sulfate 325 mg (65 mg 325 mg PO QAM 07/15/24 07/15/24 History iron) tablet,delayed release glycopyrrolate 9 mcg-formoterol 2 puff inhalation BID 07/15/24 07/15/24 History 4.8 mcg HFA aerosol inhaler (Bevespi Aerosphere) melatonin 5 mg tablet 5 mg PO HS 07/15/24 07/15/24 History metoprolol succinate 25 mg 25 mg PO HS 07/15/24 07/15/24 History tablet,extended release 24 hr metoprolol succinate 25 mg 37.5 mg PO QAM 07/15/24 07/15/24 History tablet,extended release 24 hr oxycodone 5 mg tablet 5 mg PO Q6H PRN Severe Pain (Scale 07/15/24 07/15/24 History Score 7-10) pantoprazole 40 mg tablet,delayed 40 mg PO AMHS 07/15/24 07/15/24 History release potassium chloride 10 mEq 10 meq PO BID 07/15/24 07/15/24 History tablet,extended release sertraline 150 mg capsule 150 mg PO QAM 07/15/24 07/15/24 History torsemide 10 mg tablet 20 mg PO DAILY 07/15/24 07/15/24 History Past Med/Surg History Problem List Acute respiratory failure Acute UTI (Acute) Sepsis (Acute) Confusion (Acute) Persistent atrial fibrillation with rapid ventricular response Fall (Acute) Closed intertrochanteric fracture of right hip (Acute) Fracture of right femur Transaminitis Acute dehydration (Acute) TIFFANY (acute kidney injury) (Acute) Vomiting (Acute) Weakness (Acute) 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 difficile diarrhea (Acute) Adult failure to thrive (Acute) Generalized weakness (Acute) S/P mitral valve clip implantation Presence of Watchman left atrial appendage closure device CAD (coronary artery disease) Cardiac pacemaker in situ (Acute) CKD (chronic kidney disease) (Acute) Anemia (Acute) TIA (transient ischemic attack) (Acute) Depression Hypothyroidism RADHA (obstructive sleep apnea) SSS (sick sinus syndrome) Chronic diastolic (congestive) heart failure CKD (chronic kidney disease), stage III TIA (transient ischemic attack) Anemia (Acute) Leukocytosis (Acute) Chronic anticoagulation (Acute) Acute renal insufficiency Severe mitral insufficiency Acute on chronic diastolic heart failure Paroxysmal atrial fibrillation Stroke-like symptoms (Acute) Acute on chronic anemia COVID-19 (Acute) COVID-19 (Acute) History of tobacco abuse Asthma, moderate persistent (Chronic) Meniere disease (Chronic) Atrial fibrillation and flutter (Chronic) History of laminectomy (Chronic) H/O sinus surgery (Chronic) Hx of neck surgery (Chronic) History of repair of left rotator cuff (Chronic) Medical History Generalized weakness Pericardial effusion Low back pain Angio-edema Nausea Leukocytosis Near syncope Hypotension Dehydration TIFFANY (acute kidney injury) Near syncope Elevated brain natriuretic peptide (BNP) level Pneumonia Atrial flutter Carotid artery aneurysm Prolonged QT interval Atrial fibrillation with RVR DM type 2 (diabetes mellitus, type 2) Encounter for pre-operative examination Cholelithiasis Cholecystitis Chest pain at rest Pulmonary emphysema Osteoarthritis of right knee HTN (hypertension) Surgical History History of hysterectomy History of cholecystectomy Family History Father Diabetes Social History Smoking Status: Former smoker Tobacco Type: Cigarettes packs per day: 1.5; Cigarettes Per Day: 30; Second Hand Exposure: No; Do You Dip or Chew Tobacco: No; Hx Alcohol Use: No Hx Substance Use: No Preferred Language: Georgian Communication Ability: Effective Burrito Maker Required: No Beliefs That Will Affect Care: None marital status: Current Living Situation: Spouse Feels Safe at Home: Yes Assistive Devices: Glasses, Oxygen - at Night and Walker Review of Systems Review of Systems: All systems reviewed & are unremarkable except as noted in HPI & below Physical Exam Physical Exam: General: +ill appearing, no apparent distress, WDWN Head: normocephalic, atraumatic Eyes: PERRL, EOM's intact, conjunctiva non-injected, anicteric ENT: normal inspection external ears, nose, mucous membranes dry Neck: supple, trachea midline Lungs: no respiratory distress on current 2L via NC, +diffuse wheezing throughout CV: irregularly irregular, rate 126, no pretibial edema Abd: normal BS, soft, non-tender Ext: no cyanosis, no calf tenderness Neuro: A&O x 3, no focal deficits noted, normal affect Skin: warm, dry Results & Data Results & Data Vital Signs (Past 12 Hours) Vital Signs Temp Pulse Resp BP Pulse Ox O2 Del Method O2 Flow Rate 07/15/24 16:15 137 H 07/15/24 15:52 94 Nasal Cannula 2 07/15/24 15:52 38.9 C H 136 H 25 H 149/97 H 89 L Room Air Laboratory Results Short CBC 07/15/24 Range/Units 16:09 WBC 19.12 H (4.8-10.8) K/ul Hgb 10.8 L (12.0-16.0) g/dl Hct 33.3 L (37.0-47.0) % Plt Count 248 (130-400) K/uL BMP 07/15/24 16:09 Sodium 140 Potassium 4.7 Chloride 104 Carbon Dioxide 24 BUN 43 H Creatinine 1.43 H Glucose 170 H Calcium 9.3 Liver Function 07/15/24 Range/Units 16:09 Total Bilirubin 0.7 (0.2-1.0) mg/dl AST 66 H (13-39) U/L ALT 22 (7-52) U/L Alkaline Phosphatase 216 H (34-104) U/L Albumin 3.9 (3.4-5.0) gm/dl Urine 07/15/24 Range/Units 16:20 Urine Color Yellow Urine Appearance Clear (Clear) Urine pH 7.0 (4.5-7.5) Ur Specific [place] 1.009 (1.000-1.030) Urine Protein Negative (Negative) Urine Glucose (UA) Negative (Negative) Diagnostic Findings Chest X-Ray 07/15/24 16:10 EXAM: Radiograph of the Chest 1 View INDICATION: Fever. TECHNIQUE: Frontal view of the chest. COMPARISON: 05/28/2024 FINDINGS: Lungs and pleural spaces: There is an approximate 3.1 x 3.7 cm groundglass infiltrate in the right midlung. There was some vague density in this area previously but is now more defined. Stable mild scarring in the bases. No pleural effusion or pneumothorax. Heart: Stable cardiomegaly and intact atrial and ventricular pacing leads. Mediastinum: Normal contour. Bones/joints: No fracture, erosion or dislocation. Soft tissues: No abnormality noted. No radiopaque foreign body noted. Upper abdomen: No abnormality noted. IMPRESSION: Focus of vague groundglass density in the right lung most concerning for pneumonia including viral etiologies. ACT 112: Negative or not required by law. Electronically signed by Yeimi Aponte 07-15-2024 5:[address] 07/15/24 16:10 EXAM: CT Head Without Intravenous Contrast INDICATION: Fever. Altered mental status. TECHNIQUE: Axial computed tomography images of the head/brain without intravenous contrast. Sagittal and/or coronal reformats are provided. Sagittal and coronal reformatted images were created and reviewed. This CT exam was performed using one or more of the following dose reduction techniques: automated exposure control, adjustment of the mA and/or kV according to patient size, and/or use of iterative reconstruction technique. COMPARISON: 03/07/2024 FINDINGS: Limitations: None. Brain and extra-axial spaces: There is age appropriate cortical atrophy and chronic ischemic periventricular white matter hypodensity. No acute infarct, hemorrhage or mass noted. Bones/joints: No acute changes. Soft tissues: No significant abnormality noted. Vasculature: No acute abnormality noted. Sinuses: Stable opacified maxillary sinuses. Mastoid air cells: No mastoid effusion. Orbits: No significant abnormality noted. IMPRESSION: 1. Cerebral atrophy. No acute changes. 2. Stable chronic bilateral maxillary sinusitis. ACT 112: Negative or not required by law. Electronically signed by Yeimi Aponte 07-15-2024 4:48 PM Supervising Physician Co-Signing Physician Notes 07/15/2024 Patient was seen and examined in the emergency room in presence of the son She was brought in from acute rehab facility with increasing confusion and also fever She has had recent hospitalization following a fracture and postoperatively that was complicated by A-fib RVR and required 2 units of blood transfusion She has been feeling a little better after coming to the emergency room and getting some treatment On examination No apparent distress at rest Hemodynamically stable but remains very deaf Chestclear to auscultate bilaterally HeartS1-S2, regular Abdomenbenign Extremities trace edema bilaterally CNSalert and awake Her admission labs and imaging studies reviewed Has pneumonia and also urinary tract infection causing change in mental status Started with intravenous cefepime and also we will add doxycycline Significant other medical conditions remained stable Agree with assessment and plan as outlined above by Rose Mccormick PA-C and take the full responsibility of the care Dr Evin Gomez (2) Sepsis Sepsis acute organ dysfunction status: with acute organ dysfunction Sepsis type: sepsis due to unspecified organism Severe sepsis acute organ dysfunction type: unspecified
[2024-07-15] MEDS: LEVALBUTEROL 1.25 MG/3 ML NEB NEB STA (18:39)
[2024-07-15] MEDS: DOXYCYCLINE HYCLATE 100 MG in DEXTROSE 5% MINI-B 100 ML IV STA (18:42)
[2024-07-15 19:20] LABS: Magnesium 1.8 mg/dl (1.7-2.4)
[2024-07-15 19:27] LABS: Troponin I High Sensitivity 36.3 pg/ml (0-14)
[2024-07-15] MEDS: METOPROLOL SUCC 25MG EXT REL TAB PO ONE (19:29)
[2024-07-15] MEDS ORDERED: POLYETHYLENE (MIRALAX) 17 GM PACK PO PRN (21:43)
[2024-07-15] MEDS ORDERED: IPRATROPIUM BROMIDE NASAL SPRAY 0.06% 15ML NAE PRN (22:01)
[2024-07-15] MEDS: MAGNESIUM SULFATE / D5W 1 GM/100 ML BAG IV STA (22:26)
[2024-07-15] MEDS: SODIUM CHLORIDE 0.9% 1,000 ML IV SCH (22:27)
[2024-07-15] MEDS: METOPROLOL SUCC 25MG EXT REL TAB PO SCH (23:22)
[2024-07-15] MEDS: MELATONIN 3 MG TAB PO SCH (23:26)
[2024-07-15] MEDS: busPIRone 5 MG TAB PO SCH (23:27)
[2024-07-15] MEDS: MONTELUKAST SODIUM 10 MG TABLET PO SCH (23:27)
[2024-07-15] MEDS: allopurinoL 300 MG TAB PO SCH (23:27)
[2024-07-15] MEDS: guaiFENesin 600 MG TABCR PO SCH (23:27)
[2024-07-15] MEDS: PANTOprazole 40 MG TAB PO SCH (23:27)
[2024-07-15] MEDS: CHECK fentaNYL PATCH PLACEMENT SCH (23:28)
[2024-07-16] MEDS: SODIUM CHLORIDE 0.9% 500 ML IV ONE (00:05)
[2024-07-16] MEDS ORDERED: CEFEPIME 1000MG 1,000 MG/10 ML SYR IV SCH (04:00)
[2024-07-16] MEDS: CEFEPIME 2000MG 2,000 MG/20 ML SYR IV SCH (05:53)
[2024-07-16] MEDS: LEVOTHYROXINE SODIUM 175 MCG TABLET PO SCH (05:53)
[2024-07-16 06:12] LABS: Basophils # (auto) 0.02 K/uL (0.00-0.20); Basophils % (auto) 0.1 %; Hematocrit (blood only) 29.9 % (37.0-47.0); Hemoglobin 9.4 g/dl (12.0-16.0); Immature Granulocytes # (auto) 0.16 K/uL (0.01-0.20); Immature Granulocytes % (auto) 0.8 %; Lymphocytes # (auto) 0.64 K/uL (1.20-3.40); Lymphocytes % (auto) 3.1 %; Mean Corpuscular Hemoglobin 30.2 pg (25.0-34.0); Mean Corpuscular Hgb Conc 31.4 g/dL (32.0-36.0); Mean Corpuscular Volume 96.1 fL (80.0-100.0); Mean Platelet Volume 10.7 fL (9.4-12.4); Monocytes # (auto) 1.36 K/uL (0.11-0.59); Monocytes % (auto) 6.5 %; Neutrophils # (auto) 18.73 K/uL (1.40-6.50); Neutrophils % (auto) 89.5 %; Platelet Count 153 K/uL (130-400); RDW Coefficient of Variation 17.7 % (11.5-14.5); RDW Standard Deviation 62.4 fL (36.4-46.3); Red Blood Count 3.11 M/uL (4.20-5.40); White Blood Count 20.91 K/ul (4.8-10.8)
[2024-07-16 06:26] LABS: Albumin Globulin Ratio 1.2 (0.9-2); Albumin Level 3.1 gm/dl (3.4-5.0); BUN Creatinine Ratio 29.3 (10-20); Bilirubin,Total 0.7 mg/dl (0.2-1.0); Calcium 8.4 mg/dl (8.6-10.3); Globulin 2.5 gm/dl (2.5-4.0); Potassium 4.1 mmol/L (3.5-5.1); Total Protein 5.6 gm/dl (6.0-8.3)
[2024-07-16] MEDS: LEVALBUTEROL 1.25 MG/3 ML NEB NEB PRN (08:25)
--- NOTE | 2024-07-16 08:31 | Hospitalist Progress Note ---
Date of Service July 16, 2024 Assessment & Plan (1) Acute UTI: (2) Sepsis: (3) Confusion: (4) Persistent atrial fibrillation with rapid ventricular response: (5) Weakness: (6) Acute respiratory failure: Plan: Patient is 83 year old female with PMH DM II, CKD III, hypothyroidism, polyneuropathy, PVD, HLD, RADHA, moderate persistent asthma, nocturnal hypoxemia, COPD, paroxysmal atrial fibrillation s/p Watchman procedure, sick sinus syndrome s/p pacemaker placement, pulmonary hypertension, chronic diastolic CHF, left carotid artery aneurysm, aortic atherosclerosis, severe tricuspid regurgitation, s/p mitral valve clip for severe mitral regurgitation, GERD, history of TIA and others listed below presented to ER for weakness today. Sepsis Pneumonia Acute hypoxic respiratory failure COPD/asthma exacerbation UTI Human metapneumovirus In ER T: 38.9C, P: 136, R: 25, BP 149/97, 89% on room air up to 94% on 2 L nasal cannula WBC: 19. Lactate WNL. procalcitonin: 0.3 BioFire respiratory panel:+human metapneumovirus UA:3+leuk esterase, 4+bacteria, >50 WBC CXR: Focus of vague groundglass density in the right lung most concerning for pneumonia including viral etiologies. CT head: no acute intracranial findings Urine culture pending In ER given 1000mL NSS, cefepime, 1 g Tylenol IV After IVF patient reassessed and HR: 129, R: 20, BP 117/69, 96% on 2 L via nasal cannula. Lungs with diffuse wheezing throughout, irregularly irregular per auscultation, rate 128, brisk capillary refill, patient alert and oriented x 3 blood cultures -pending Review of patient's allergy list has Keflex and penicillin as allergy. Per chart review patient received cefazolin last month postop. She received cefepime in ER today. Cefepime, doxycycline Mucinex, incentive spirometry, Xopenex nebs Supplemental oxygen as needed Give additional IVF Will hold home torsemide and potassium supplement currently as is dry CBC, BMP in a.m. Persistent atrial fibrillation with rapid ventricular response Not on anticoagulation secondary to history of GIB in past and is s/p Watchman S/P Watchman Procedure SSS s/p PPM H/O of LV thrombus HR in 130s in ER. Patient without palpitations, SOB, CP and is mentating normally. Suspect secondary to underlying illness and dehydration which treating as above and with IVF. Resume home metoprolol succinate Troponin: 29 Trend troponin 03/21/2024 echo: EF: 55-60%, s/p mitral valve clip, mild mitral regurgitation, moderate mitral stenosis, left atrium severely dilated, moderate-severe tricuspid regurgitation magnesium: 1.8. Will replace to keep at or above 2.0 If uncontrolled consider cardiology consult Continues to be in Afib w/ RVR give IV metoprolol, consulted cardiology CKD III Recent TIFFANY with peak creatinine of 3 on 05/28/2024 had trended down to 1.0 on discharge on 06/02/2024 BUN: 43. Cr: 1.4 (was 1.4 on 07/05/2024) IVF Avoid nephrotoxic agents when possible If worsening consider nephrology consult Recent Fall and Right Femur Fracture S/P intertrochanteric nail Currently at [facility] for rehab PT/OT eval Fall precautions Continue fentanyl patch for pain Chronic Diastolic CHF Severe Tricuspid Regurgitation Hx of severe mitral regurg s/p Mitral Clip Noted dry on admission. Will hold home torsemide Monitor volume status Recent postop anemia Hgb: 10.8. Improved from 9.5 on 07/05/2024. Had low of 6.8 on 05/26/2024 and received 2 units PRBC during that hospitalization Continue iron supplement History mild Transaminitis: AST 66, alk phos: 216. Around patient's recent levels RADHA, Nocturnal Hypoxia: Continue baseline 2L O2 HS. DM II Diet-controlled. A1c was 6.9% on 03/24/24 Hypothyroidism: Continue levothyroxine DVT Prophylaxis SCDs PCU DNR/DNI as per discussion with pt Follows with Dr Calvo for routine care Admission and Anticipated Discharge Date Admission Date: July 15, 2024 Subjective Pt seen in follow up of sepsis, UTI, PNA + human metapneumovirus From [facility] , recent hx of fem. fx Found w/ fever, tachycardia, lethargic Now sitting up in bed in NAD, but developed Afib w/ RVR Denies chest pain, shortness of breath, palpitations, abd. pain, n/v + fever Daughter present at the bedside given iv metoprolol and contacted cardiology for further management Review of Systems Review of Systems: All systems reviewed & are unremarkable except as noted in Subjective Physical Exam Physical Exam: General: +ill appearing, no apparent distress, WDWN, elderly F Head: normocephalic, atraumatic Eyes: PERRL, EOM's intact, conjunctiva non-injected, anicteric ENT: normal inspection external ears, nose, mucous membranes dry Neck: supple Lungs: no respiratory distress on suppl. O2 via NC, no wheezing (had breathing treatment prior to exam) CV: irregularly irregular, yachycardic, no pretibial edema Abd: normal BS, soft, non-tender Ext: moves extremities Neuro: A&O x 3, speech fluent, no facial asymmetry, moves extremities Skin: warm, dry Results & Data Results & Data Vital Signs (Past 12 Hours) Vital Signs Temp Pulse Pulse Resp BP Pulse Ox O2 Del Method 07/16/24 07:35 88 07/16/24 07:15 36.3 C L 91 H 18 126/77 98 Nasal Cannula 07/16/24 03:19 36.5 C 83 20 98/66 L 99 Nasal Cannula 07/16/24 01:01 108 H 96/60 L 07/15/24 23:23 36.4 C L 122 H 18 92/56 L 96 Nasal Cannula 07/15/24 22:55 36.7 C 128 H 18 103/67 96 Room Air 07/15/24 21:00 Nasal Cannula 07/15/24 20:41 36.8 C 130 H 18 101/68 98 Nasal Cannula 07/15/24 20:40 36.8 C O2 Flow Rate 07/16/24 07:35 07/16/24 07:15 2 07/16/24 03:19 2 07/16/24 01:01 07/15/24 23:23 2 07/15/24 22:55 07/15/24 21:00 2 07/15/24 20:41 2 07/15/24 20:40 Laboratory Results 07/16/24 07/16/24 07/16/24 Range/Units Unknown 08:14 05:32 WBC 20.91 H (4.8-10.8) K/ul RBC 3.11 L (4.20-5.40) M/uL Hgb 9.4 L (12.0-16.0) g/dl Hct 29.9 L (37.0-47.0) % MCV 96.1 (80.0-100.0) fL MCH 30.2 (25.0-34.0) pg MCHC 31.4 L (32.0-36.0) g/dL RDW Std Deviation 62.4 H (36.4-46.3) fL RDW Coeff of Francisco Javier 17.7 H (11.5-14.5) % Plt Count 153 (130-400) K/uL MPV 10.7 (9.4-12.4) fL Immature Gran % (Auto) 0.8 % Neut % (Auto) 89.5 % Lymph % (Auto) 3.1 % [place] % (Auto) 6.5 % Eos % (Auto) 0.0 % Baso % (Auto) 0.1 % Neut # (Auto) 18.73 H (1.40-6.50) K/uL Lymph # (Auto) 0.64 L (1.20-3.40) K/uL [place] # (Auto) 1.36 H (0.11-0.59) K/uL Eos # (Auto) 0.00 (0.00-0.50) K/uL Baso # (Auto) 0.02 (0.00-0.20) K/uL Immature Gran # (Auto) 0.16 (0.01-0.20) K/uL Absolute Nucleated RBC (0.00-0.12) K/uL Nucleated RBC % (auto) % Sodium 137 (136-145) mmol/L Potassium 4.1 (3.5-5.1) mmol/L Chloride 107 (98-107) mmol/L Carbon Dioxide 23 (21-32) mmol/L Anion Gap 7 (3-11) BUN 43 H (6-23) mg/dl Creatinine 1.47 H (0.6-1.2) mg/dl Est Cr Clr Drug Dosing 28.0 ml/min eGFR 35.21 BUN/Creatinine Ratio 29.3 H (10-20) Glucose 145 H (70-99(Fasting)) mg/dl POC Glucose 97 (70-99) mg/dl Lactate (0.4-2.0) mmol/L Calcium 8.4 L (8.6-10.3) mg/dl Magnesium 2.0 (1.7-2.4) mg/dl Total Bilirubin 0.7 (0.2-1.0) mg/dl AST 82 H (13-39) U/L ALT 36 (7-52) U/L Alkaline Phosphatase 158 H (34-104) U/L Troponin I High Sens (0-14) pg/ml C-Reactive Protein (0-0.5) mg/dl Total Protein 5.6 L (6.0-8.3) gm/dl Albumin 3.1 L (3.4-5.0) gm/dl Globulin 2.5 (2.5-4.0) gm/dl Albumin/Globulin Ratio 1.2 (0.9-2) Lipase (11-82) U/L Procalcitonin (0-0.5) ng/ml Urine Color Urine Appearance (Clear) Urine pH (4.5-7.5) Ur Specific [place] (1.000-1.030) Urine Protein (Negative) Urine Glucose (UA) (Negative) Urine Ketones (Negative) Urine Blood (Negative) Urine Nitrite (Negative) Urine Bilirubin (Negative) Urine Urobilinogen (Negative) Ur Leukocyte Esterase (Negative) Urine WBC (Auto) (0-5) /hpf Urine RBC (Auto) (0-2) /hpf U Hyaline Cast (Auto) (0-2) /lpf U Epithel Cells (Auto) (0-2) /hpf Urine Bacteria (Auto) (None Seen) Nasal Screen MRSA (PCR) Negative (Negative) Adenovirus (PCR) (NotDetected) B. pertussis DNA (PCR) (NotDetected) B.parapertussis DNA PCR (NotDetected) C. pneumoniae DNA (PCR) (NotDetected) Coronavirus OC43 (PCR) (NotDetected) Coronavirus HKU1 (PCR) (NotDetected) Coronavirus 229E (PCR) (NotDetected) SARS-CoV-2 (PCR) (NotDetected) Coronavirus NL63 (PCR) (NotDetected) Human Metapneumovir PCR (NotDetected) Influenza Type A (PCR) (NotDetected) Influenza Type B (PCR) (NotDetected) M. pneumoniae (PCR) (NotDetected) Parainfluenza 1 (PCR) (NotDetected) Parainfluenza 2 (PCR) (NotDetected) Parainfluenza 3 (PCR) (NotDetected) Parainfluenza 4 (PCR) (NotDetected) RSV (PCR) (NotDetected) Entero/Rhino (PCR) (NotDetected) 07/15/24 07/15/24 07/15/24 Range/Units 20:55 18:28 16:42 WBC (4.8-10.8) K/ul RBC (4.20-5.40) M/uL Hgb (12.0-16.0) g/dl Hct (37.0-47.0) % MCV (80.0-100.0) fL MCH (25.0-34.0) pg MCHC (32.0-36.0) g/dL RDW Std Deviation (36.4-46.3) fL RDW Coeff of Francisco Javier (11.5-14.5) % Plt Count (130-400) K/uL MPV (9.4-12.4) fL Immature Gran % (Auto) % Neut % (Auto) % Lymph % (Auto) % [place] % (Auto) % Eos % (Auto) % Baso % (Auto) % Neut # (Auto) (1.40-6.50) K/uL Lymph # (Auto) (1.20-3.40) K/uL [place] # (Auto) (0.11-0.59) K/uL Eos # (Auto) (0.00-0.50) K/uL Baso # (Auto) (0.00-0.20) K/uL Immature Gran # (Auto) (0.01-0.20) K/uL Absolute Nucleated RBC (0.00-0.12) K/uL Nucleated RBC % (auto) % Sodium (136-145) mmol/L Potassium (3.5-5.1) mmol/L Chloride (98-107) mmol/L Carbon Dioxide (21-32) mmol/L Anion Gap (3-11) BUN (6-23) mg/dl Creatinine (0.6-1.2) mg/dl Est Cr Clr Drug Dosing ml/min eGFR BUN/Creatinine Ratio (10-20) Glucose (70-99(Fasting)) mg/dl POC Glucose 139 H (70-99) mg/dl Lactate 1.1 (0.4-2.0) mmol/L Calcium (8.6-10.3) mg/dl Magnesium 1.8 (1.7-2.4) mg/dl Total Bilirubin (0.2-1.0) mg/dl AST (13-39) U/L ALT (7-52) U/L Alkaline Phosphatase (34-104) U/L Troponin I High Sens 36.3 H (0-14) pg/ml C-Reactive Protein (0-0.5) mg/dl Total Protein (6.0-8.3) gm/dl Albumin (3.4-5.0) gm/dl Globulin (2.5-4.0) gm/dl Albumin/Globulin Ratio (0.9-2) Lipase (11-82) U/L Procalcitonin (0-0.5) ng/ml Urine Color Urine Appearance (Clear) Urine pH (4.5-7.5) Ur Specific [place] (1.000-1.030) Urine Protein (Negative) Urine Glucose (UA) (Negative) Urine Ketones (Negative) Urine Blood (Negative) Urine Nitrite (Negative) Urine Bilirubin (Negative) Urine Urobilinogen (Negative) Ur Leukocyte Esterase (Negative) Urine WBC (Auto) (0-5) /hpf Urine RBC (Auto) (0-2) /hpf U Hyaline Cast (Auto) (0-2) /lpf U Epithel Cells (Auto) (0-2) /hpf Urine Bacteria (Auto) (None Seen) Nasal Screen MRSA (PCR) (Negative) Adenovirus (PCR) (NotDetected) B. pertussis DNA (PCR) (NotDetected) B.parapertussis DNA PCR (NotDetected) C. pneumoniae DNA (PCR) (NotDetected) Coronavirus OC43 (PCR) (NotDetected) Coronavirus HKU1 (PCR) (NotDetected) Coronavirus 229E (PCR) (NotDetected) SARS-CoV-2 (PCR) (NotDetected) Coronavirus NL63 (PCR) (NotDetected) Human Metapneumovir PCR (NotDetected) Influenza Type A (PCR) (NotDetected) Influenza Type B (PCR) (NotDetected) M. pneumoniae (PCR) (NotDetected) Parainfluenza 1 (PCR) (NotDetected) Parainfluenza 2 (PCR) (NotDetected) Parainfluenza 3 (PCR) (NotDetected) Parainfluenza 4 (PCR) (NotDetected) RSV (PCR) (NotDetected) Entero/Rhino (PCR) (NotDetected) 07/15/24 07/15/24 07/15/24 Range/Units 16:22 16:20 16:09 WBC 19.12 H (4.8-10.8) K/ul RBC 3.54 L (4.20-5.40) M/uL Hgb 10.8 L (12.0-16.0) g/dl Hct 33.3 L (37.0-47.0) % MCV 94.1 (80.0-100.0) fL MCH 30.5 (25.0-34.0) pg MCHC 32.4 (32.0-36.0) g/dL RDW Std Deviation 61.0 H (36.4-46.3) fL RDW Coeff of Francisco Javier 17.7 H (11.5-14.5) % Plt Count 248 (130-400) K/uL MPV 10.9 (9.4-12.4) fL Immature Gran % (Auto) 0.7 % Neut % (Auto) 88.3 % Lymph % (Auto) 3.3 % [place] % (Auto) 7.1 % Eos % (Auto) 0.4 % Baso % (Auto) 0.2 % Neut # (Auto) 16.88 H (1.40-6.50) K/uL Lymph # (Auto) 0.64 L (1.20-3.40) K/uL [place] # (Auto) 1.35 H (0.11-0.59) K/uL Eos # (Auto) 0.08 (0.00-0.50) K/uL Baso # (Auto) 0.03 (0.00-0.20) K/uL Immature Gran # (Auto) 0.14 (0.01-0.20) K/uL Absolute Nucleated RBC 0.03 (0.00-0.12) K/uL Nucleated RBC % (auto) 0.2 % Sodium 140 (136-145) mmol/L Potassium 4.7 (3.5-5.1) mmol/L Chloride 104 (98-107) mmol/L Carbon Dioxide 24 (21-32) mmol/L Anion Gap 12 H (3-11) BUN 43 H (6-23) mg/dl Creatinine 1.43 H (0.6-1.2) mg/dl Est Cr Clr Drug Dosing 29.9 ml/min eGFR 36.39 BUN/Creatinine Ratio 30.1 H (10-20) Glucose 170 H (70-99(Fasting)) mg/dl POC Glucose (70-99) mg/dl Lactate (0.4-2.0) mmol/L Calcium 9.3 (8.6-10.3) mg/dl Magnesium (1.7-2.4) mg/dl Total Bilirubin 0.7 (0.2-1.0) mg/dl AST 66 H (13-39) U/L ALT 22 (7-52) U/L Alkaline Phosphatase 216 H (34-104) U/L Troponin I High Sens 29.0 H (0-14) pg/ml C-Reactive Protein 3.74 H (0-0.5) mg/dl Total Protein 7.0 (6.0-8.3) gm/dl Albumin 3.9 (3.4-5.0) gm/dl Globulin 3.1 (2.5-4.0) gm/dl Albumin/Globulin Ratio 1.3 (0.9-2) Lipase 15 (11-82) U/L Procalcitonin 0.34 (0-0.5) ng/ml Urine Color Yellow Urine Appearance Clear (Clear) Urine pH 7.0 (4.5-7.5) Ur Specific [place] 1.009 (1.000-1.030) Urine Protein Negative (Negative) Urine Glucose (UA) Negative (Negative) Urine Ketones Negative (Negative) Urine Blood Negative (Negative) Urine Nitrite Positive A (Negative) Urine Bilirubin Negative (Negative) Urine Urobilinogen Negative (Negative) Ur Leukocyte Esterase 3+ H (Negative) Urine WBC (Auto) >50 H (0-5) /hpf Urine RBC (Auto) 0-2 (0-2) /hpf U Hyaline Cast (Auto) 0-2 (0-2) /lpf U Epithel Cells (Auto) 0-2 (0-2) /hpf Urine Bacteria (Auto) 4+ H (None Seen) Nasal Screen MRSA (PCR) (Negative) Adenovirus (PCR) Not Detected (NotDetected) B. pertussis DNA (PCR) Not Detected (NotDetected) B.parapertussis DNA PCR Not Detected (NotDetected) C. pneumoniae DNA (PCR) Not Detected (NotDetected) Coronavirus OC43 (PCR) Not Detected (NotDetected) Coronavirus HKU1 (PCR) Not Detected (NotDetected) Coronavirus 229E (PCR) Not Detected (NotDetected) SARS-CoV-2 (PCR) Not Detected (NotDetected) Coronavirus NL63 (PCR) Not Detected (NotDetected) Human Metapneumovir PCR DETECTED A (NotDetected) Influenza Type A (PCR) Not Detected (NotDetected) Influenza Type B (PCR) Not Detected (NotDetected) M. pneumoniae (PCR) Not Detected (NotDetected) Parainfluenza 1 (PCR) Not Detected (NotDetected) Parainfluenza 2 (PCR) Not Detected (NotDetected) Parainfluenza 3 (PCR) Not Detected (NotDetected) Parainfluenza 4 (PCR) Not Detected (NotDetected) RSV (PCR) Not Detected (NotDetected) Entero/Rhino (PCR) Not Detected (NotDetected) Medications Administered Current Inpatient Medications Acetaminophen (Acetaminophen 325 Mg Tab) 650 mg PO Q4H PRN PRN Reason: Pain or Fever Stop: 08/14/24 21:42 Allopurinol (Allopurinol 300 Mg Tab) 300 mg PO HS JULIO CESAR Stop: 08/14/24 21:59 Last Admin: 07/15/24 23:27 Dose: 300 mg Aspirin (Aspirin 81 Mg Ectab) 81 mg PO QAM JULIO CESAR Stop: 08/15/24 08:59 Atorvastatin Calcium (Atorvastatin 20 Mg Tab) 20 mg PO QAM JULIO CESAR Stop: 08/15/24 08:59 Buspirone HCl (Buspirone 5 Mg Tab) 5 mg PO AMHS JULIO CESAR Stop: 08/14/24 21:59 Last Admin: 07/15/24 23:27 Dose: 5 mg Doxycycline Hyclate (Doxycycline Hyclate 100 Mg Cap) 100 mg PO BID JULIO CESAR Stop: 07/21/24 08:59 Fentanyl (Fentanyl 12 Mcg/Hr Tdsy) 1 patch TD Q3D [facility] Stop: 07/31/24 18:59 Ferrous Sulfate (Ferrous Sulfate 325 Mg Tab) 325 mg PO 1100 [facility] Stop: 08/15/24 10:59 Guaifenesin (Guaifenesin 600 Mg Tabcr) 600 mg PO Q12 JULIO CESAR Stop: 08/14/24 21:59 Last Admin: 07/15/24 23:27 Dose: 600 mg Sodium Chloride (Nss) 1,000 mls @ 80 mls/hr IV .[id number] [facility] Stop: 07/16/24 21:42 Last Infusion: 07/16/24 07:17 Dose: Infused Cefepime HCl (Maxipime 2000mg) 2,000 mg in 20 mls @ 5 mls/min IV Q12H [facility] Stop: 07/21/24 04:59 Last Admin: 07/16/24 05:53 Dose: 5 mls/min Ipratropium Telephone (Ipratropium Telephone Nasal [place] 0.06% 15ml) 1 sprays OLVIN DAILY PRN PRN Reason: rhinorrhea Stop: 08/14/24 22:00 Lactobacillus Acidophilus (Advanced Probiotic 625 Mg Capsule) 1,250 mg PO DAILY [facility] Stop: 08/15/24 08:59 Levalbuterol HCl (Levalbuterol 1.25 Mg/3 Ml Neb) 1.25 mg NEB Q6H PRN PRN Reason: Shortness Of Breath Or Wheezing Stop: 08/14/24 21:42 Last Admin: 07/16/24 08:25 Dose: 1.25 mg Levothyroxine Sodium (Levothyroxine Sodium 175 Mcg Tablet) 175 mcg PO DAILYBB [facility] Stop: 08/15/24 06:29 Last Admin: 07/16/24 05:53 Dose: 175 mcg Melatonin (Melatonin 3 Mg Tab) 6 mg PO HS [facility] Stop: 08/14/24 21:59 Last Admin: 07/15/24 23:26 Dose: 6 mg Metoprolol Succinate (Metoprolol Succ 25mg Ext Rel Tab) 25 mg PO HS [facility] Stop: 08/14/24 22:14 Last Admin: 07/15/24 23:22 Dose: Not Given Metoprolol Succinate (Metoprolol Succ 25mg Ext Rel Tab) 37.5 mg PO QAM [facility] Stop: 08/15/24 08:59 Miscellaneous (Fentanyl Patch Remove & Waste) 1 each N/A Q3D JULIO CESAR Stop: 08/16/24 18:59 Miscellaneous (Check Fentanyl Patch Placement) 1 each N/A QS JULIO CESAR Stop: 08/15/24 00:00 Last Admin: 07/15/24 23:28 Dose: 1 each Montelukast Sodium (Montelukast Sodium 10 Mg Tablet) 10 mg PO PM JULIO CEASR Stop: 08/14/24 21:59 Last Admin: 07/15/24 23:27 Dose: 10 mg Ondansetron HCl (Ondansetron Inj 2 Mg/Ml 2 Ml Vial) 4 mg IV Q6H PRN PRN Reason: Nausea Stop: 08/14/24 21:42 Pantoprazole Sodium (Pantoprazole 40 Mg Tab) 40 mg PO AMHS [facility] Stop: 08/14/24 21:59 Last Admin: 07/15/24 23:27 Dose: 40 mg Polyethylene Glycol (Polyethylene (Miralax) 17 Gm Pack) 17 gm PO DAILY PRN PRN Reason: Constipation Stop: 08/14/24 21:42 Sertraline HCl (Sertraline Hcl 100 Mg Tablet) 150 mg PO QAM [facility] Stop: 08/15/24 08:59 Umeclidinium/Vilanterol (Umeclidinium/Vilanterol 62.5/25mcg 7 Puffs/Inhaler) 1 puffs INH DAILY JULIO CESAR Stop: 08/15/24 08:59 Vitamin D (Cholecalciferol 25 Mcg (1000 Units) Tab) 100 mcg PO QAM [facility] Stop: 08/15/24 08:59 (2) Sepsis Sepsis acute organ dysfunction status: with acute organ dysfunction Sepsis type: sepsis due to unspecified organism Severe sepsis acute organ dysfunction type: unspecified
[2024-07-16] MEDS: ATORVASTATIN 20 MG TAB PO SCH (08:57)
[2024-07-16] MEDS: ADVANCED PROBIOTIC 625 MG CAPSULE PO SCH (08:57)
[2024-07-16] MEDS: METOPROLOL SUCC 25MG EXT REL TAB PO SCH (08:57)
[2024-07-16] MEDS: CHOLECALCIFEROL 25 MCG (1000 UNITS) TAB PO SCH (08:57)
[2024-07-16] MEDS: DOXYCYCLINE HYCLATE 100 MG CAP PO SCH (08:57)
[2024-07-16] MEDS: ASPIRIN 81 MG ECTAB PO SCH (08:57)
[2024-07-16] MEDS: SERTRALINE HCL 100 MG TABLET PO SCH (08:58)
[2024-07-16] MEDS: UMECLIDINIUM/VILANTEROL 62.5/25MCG 7 PUFFS/INHALER INH SCH (08:58)
[2024-07-16] MEDS: ONDANSETRON INJ 2 MG/ML 2 ML VIAL IV PRN (09:39)
[2024-07-16] MEDS: METOPROLOL TARTRATE 1 MG/ML VIAL IV STA (10:28)
[2024-07-16] MEDS: FERROUS SULFATE 325 MG TAB PO SCH (10:41)
--- NOTE | 2024-07-16 11:01 | Cardiology Consultation ---
Date of Consultation July 16, 2024 Assessment & Plan (1) Acute respiratory failure: (2) Acute UTI: (3) Persistent atrial fibrillation with rapid ventricular response: (4) ASCVD (arteriosclerotic cardiovascular disease): (5) S/P mitral valve clip implantation: (6) Presence of Watchman left atrial appendage closure device: (7) CKD (chronic kidney disease): (8) Cardiac pacemaker in situ: (9) TIA (transient ischemic attack): (10) SSS (sick sinus syndrome): (11) Diastolic congestive heart failure: (12) Sepsis: Plan Atrial fibrillation/flutter. This appears to be persistent since the end of December 2023. Pacemaker interrogation requested today to verify. Patient asymptomatic, rates likely be driven by the acute illness. Recommend rate control with IV and oral metoprolol as blood pressure allows, and digoxin. Increase metoprolol succinate from 37.5 AM and 25 PM to 50 mg twice a day. Give 250 mcg IV digoxin now then consider repeat x 1 prior to starting renally doses oral digoxin (125 mcg PO on MWF). Status post July 2023 Watchman implantation. Follow-up BRENDAN in August 2023 with thrombus requiring anticoagulation until March 2024. Cardiac pacemaker in situ, implanted in July 2022 due to Sick Sinus Syndrome. Device interrogation requested today. Elevated troponin (29.0 - 36.3 pg/mL). This appears to be at Type II NSTEMI cause secondary to critical illness, sepsis, significant tachycardia in the setting of known nonobstructive CAD (January 25, 2024 cardiac catheterization revealing a 40% mid LAD stenosis and up to 50% prox-mid RCA stenosis). Recommend conservative medical management. Chronic diastolic CHF secondary to valvular insufficiency. Volume status appears compensated at present. Follow. Severe pulmonary hypertension, multifactorial, on supplemental oxygen Severe mitral regurgitation status post mitral clip on March 06, 2024 History of severe GI bleeding - hiatal hernia, Ivan erosions, multiple AV malformations Supervising Physician Co-Signing Physician Notes Attending attestation: Case reviewed with the advanced practitioner. I have personally performed a history and physical examination on the patient. I have reviewed the advanced practitioner's documentation on the date of service referenced in note, and I agree with, and take responsibility for the plan of care. Persistent AF with elevated rates in the setting of human metapnuemovirus and e. coli UTI. Metoprolol succinate and digoxin for rate control as noted. SCDs for DVT prophylaxis. Hossein Snowden, History of Present Illness Reason for Consultation: Atrial fibrillation with a rapid ventricular response Requesting Physician: Dr. John Natarajan MD Attending Physician: Dr. John Natarajan MD History of Present Illness Daughter at bedside. Hospitalized in March and April 2024 with acute bronchitis secondary to COVID-19 virus, with associated acute kidney injury. Hospitalized in May 2024 following a fall, closed intertrochanteric fracture of the right hip status post nailing by Dr. Stevenson on May 25, 2024. Transferred to [facility] for rehabilitation for the past month. Son observed mother to be unwell yesterday, worsening dyspnea, febrile, increased confusion. Admitted with working diagnosis of sepsis, acute hypoxic respiratory failure, pneumonia, complicated UTI. Nausea and vomiting this morning. + Weakness. + Shortness of breath. + Cough. No chest pain. No palpitations. No PND. No increased edema. No syncope. Cardiology consultation requested today, July 16, 2024, due to atrial fibrillation/flutter with rapid ventricular response. Patient with known history of past paroxysmal atrial fibrillation. Most recent device interrogation demonstrates persistent atrial fibrillation since the end of December 2023. Status post July 2023 Watchman implantation with follow-up BRENDAN revealing thrombus requiring anticoagulation (Eliquis) until March 25, 2024. Daughter notes "she never feels the atrial fibrillation." Problem List: Chronic diastolic CHF secondary to valvular insufficiency Severe mitral regurgitation status post mitral clip XT, 03/06/2023 Sick Sinus Syndrome status post dual chamber permanent pacemaker 07/2022 Atrial fibrillation, persistent since December 2023 per review of the most recent device interrogation [id number] score of 7 (age 2, female, CHF,DM, TIA 2) History of severe GIB, history of hiatal hernia, intermittent Ivan erosions, multiple AV malformations Status post July 2023 Watchman implantation, 31 m device Follow-up BRENDAN at [facility] on 09/15/2023 with a 2.9 cm thrombus on the atrial surface of the Watchman device prompting discontinuation of antiplatelet therapy and initiation of Eliquis 2.5 mg twice daily ASCVD. January 25, 2024 Cardiac catheterization ([facility], Dr. Rivera): 40% mid LAD stenosis. Prox-mid RCA with up to 50% stenosis Severe pulmonary hypertension, multifactorial Hypertension Dyslipidemia Type II diabetes mellitus CKD stage 3 Moderate persistent asthma Aneurysm of the left carotid artery RADHA, CPAP therapy Kinebock's disease Hypothyroidism Iron deficiency anemia GERD Endometrial cancer Hypothyroidism Gout Lumbar spins stenosis Depression Reformed smoker Allergies Allergy/AdvReac Type Severity Reaction Status Date / Time Sulfa (Sulfonamide Allergy Severe Severe Verified 04/13/24 00:16 Antibiotics) rxn: rash and hives celecoxib Allergy Intermediate Rash/Hives/ Verified 04/13/24 00:16 Itching. cephalexin Allergy Intermediate Rash/Hives/ Verified 04/13/24 00:16 Itching. furosemide Allergy Intermediate Rash/Hives/ Verified 04/13/24 00:16 Itching. gabapentin Allergy Intermediate Rash/Hives/ Verified 04/13/24 00:16 Itching. pregabalin Allergy Intermediate Rash/Hives/ Verified 04/13/24 00:16 Itching. meclizine Allergy Unknown Unknown Verified 04/13/24 00:16 methylprednisolone Allergy Unknown Rash/Hives/ Verified 04/13/24 00:16 Itching. Penicillins Allergy Unknown Unknown. Verified 04/13/24 00:16 prednisone Allergy Unknown Rash/Hives/ Verified 04/13/24 00:16 Itching. vancomycin Allergy Unknown Jodi Verified 04/13/24 00:16 syn. . nickel Allergy Unknown Verified 04/13/24 00:16 dexamethasone AdvReac Intermediate Steroid Verified 04/13/24 00:16 psychosis. Home Medications Medication Instructions Recorded Confirmed Type montelukast 10 mg tablet 10 mg PO PM 04/08/19 07/15/24 History atorvastatin 20 mg tablet 20 mg PO QAM 11/26/21 07/15/24 History cholecalciferol (vitamin D3) 50 100 mcg PO QAM 11/26/21 07/15/24 History mcg (2,000 unit) capsule (Vitamin D3) levalbuterol tartrate 45 1 puff inhalation Q4H PRN 08/07/22 07/15/24 History mcg/actuation aerosol inhaler Shortness Of Breath Or Wheezing (Xopenex HFA) ipratropium bromide 21 mcg (0.03 2 spray intranasal DAILY PRN 12/06/22 07/15/24 History %) nasal spray rhinorrhea allopurinol 300 mg tablet 300 mg PO HS 08/14/23 07/15/24 History levothyroxine 175 mcg tablet 175 mcg PO DAILYBB 03/21/24 07/15/24 History fentanyl 12 mcg/hr transdermal 12 mcg transdermal Q3D 03/23/24 07/15/24 History patch benzonatate 100 mg capsule 100 mg PO Q6H PRN cough #20 caps 04/15/24 07/15/24 Rx guaifenesin 600 mg tablet, 600 mg PO Q12 PRN cough #20 tabs 04/15/24 07/15/24 Rx extended release 12 hr (Mucinex) buspirone 5 mg tablet 5 mg PO AMHS 05/13/24 07/15/24 History acetaminophen 500 mg tablet 500 mg PO Q8 PRN Fever Or Pain 07/15/24 07/15/24 History aspirin 81 mg tablet,delayed 81 mg PO QAM 07/15/24 07/15/24 History release ferrous sulfate 325 mg (65 mg 325 mg PO QAM 07/15/24 07/15/24 History iron) tablet,delayed release glycopyrrolate 9 mcg-formoterol 2 puff inhalation BID 07/15/24 07/15/24 History 4.8 mcg HFA aerosol inhaler (Bevespi Aerosphere) melatonin 5 mg tablet 5 mg PO HS 07/15/24 07/15/24 History metoprolol succinate 25 mg 25 mg PO HS 07/15/24 07/15/24 History tablet,extended release 24 hr metoprolol succinate 25 mg 37.5 mg PO QAM 07/15/24 07/15/24 History tablet,extended release 24 hr oxycodone 5 mg tablet 5 mg PO Q6H PRN Severe Pain (Scale 07/15/24 07/15/24 History Score 7-10) pantoprazole 40 mg tablet,delayed 40 mg PO AMHS 07/15/24 07/15/24 History release potassium chloride 10 mEq 10 meq PO BID 07/15/24 07/15/24 History tablet,extended release sertraline 150 mg capsule 150 mg PO QAM 07/15/24 07/15/24 History torsemide 10 mg tablet 20 mg PO DAILY 07/15/24 07/15/24 History Patient History Medical History Generalized weakness Pericardial effusion Low back pain Angio-edema Nausea Leukocytosis Near syncope Hypotension Dehydration TIFFANY (acute kidney injury) Near syncope Elevated brain natriuretic peptide (BNP) level Pneumonia Atrial flutter Carotid artery aneurysm Prolonged QT interval Atrial fibrillation with RVR DM type 2 (diabetes mellitus, type 2) Encounter for pre-operative examination Cholelithiasis Cholecystitis Chest pain at rest Pulmonary emphysema Osteoarthritis of right knee HTN (hypertension) Surgical History History of hysterectomy History of cholecystectomy Family History Father Diabetes Social History Smoking Status: Former smoker Tobacco Type: Cigarettes packs per day: 1.5; Cigarettes Per Day: 30; Second Hand Exposure: No; Do You Dip or Chew Tobacco: No; Hx Alcohol Use: No Hx Substance Use: No Preferred Language: Moroccan Communication Ability: Impaired Meteorology Faculty Member Required: No Beliefs That Will Affect Care: None marital status: Current Living Situation: [facility] Feels Safe at Home: Yes Assistive Devices: Walker Review of Systems Review of Systems: Above information obtained from daughter at bedside. A complete and accurate review of systems could not be obtained from the patient. Patient is currently not a reliable source of information. Physical Exam Physical Exam: General: Pleasantly confused. Weak. Lethargic. HENT: Normocephalic. Atraumatic. Eyes: PER. Conjunctiva pink, sclera pale. Neck: Carotid bruits. No JVD. Heart: Irregularly irregular at 130 bpm. Soft systolic murmur. No rub. Lungs: Diminished. Decreased. No wheezing. Abdomen: +BS. Soft. Nontender. No masses or organomegaly. Extremities: No clubbing. No cyanosis. No significant edema. Limited neurological examination is without focal deficits. Pulses: Posterior tibial=1/4. Results & Data Vital Signs (Past 12 Hours) Vital Signs Temp Pulse Pulse Resp BP BP Pulse Ox 07/16/24 10:30 37.5 C 139 H 18 120/72 91 07/16/24 10:28 140 H 113/72 07/16/24 08:26 121 H 24 93 07/16/24 07:35 88 07/16/24 07:15 36.3 C L 91 H 18 126/77 98 07/16/24 03:19 36.5 C 83 20 98/66 L 99 07/16/24 01:01 108 H 96/60 L 07/15/24 23:23 36.4 C L 122 H 18 92/56 L 96 O2 Del Method O2 Flow Rate 07/16/24 10:30 Room Air 07/16/24 10:28 07/16/24 08:26 Nasal Cannula 2 07/16/24 07:35 07/16/24 07:15 Nasal Cannula 2 07/16/24 03:19 Nasal Cannula 2 07/16/24 01:01 07/15/24 23:23 Nasal Cannula 2 Laboratory Results Cardiac Enzymes 07/15/24 07/15/24 07/16/24 Range/Units 16:09 18:28 05:32 AST 66 H 82 H (13-39) U/L Troponin I High Sens 29.0 H 36.3 H (0-14) pg/ml CBC 07/15/24 07/16/24 Range/Units 16:09 05:32 WBC 19.12 H 20.91 H (4.8-10.8) K/ul RBC 3.54 L 3.11 L (4.20-5.40) M/uL Hgb 10.8 L 9.4 L (12.0-16.0) g/dl Hct 33.3 L 29.9 L (37.0-47.0) % Plt Count 248 153 (130-400) K/uL Neut # (Auto) 16.88 H 18.73 H (1.40-6.50) K/uL Lymph # (Auto) 0.64 L 0.64 L (1.20-3.40) K/uL [place] # (Auto) 1.35 H 1.36 H (0.11-0.59) K/uL Eos # (Auto) 0.08 0.00 (0.00-0.50) K/uL Baso # (Auto) 0.03 0.02 (0.00-0.20) K/uL Comprehensive Metabolic Panel 07/15/24 07/16/24 Range/Units 16:09 05:32 Sodium 140 137 (136-145) mmol/L Potassium 4.7 4.1 (3.5-5.1) mmol/L Chloride 104 107 (98-107) mmol/L Carbon Dioxide 24 23 (21-32) mmol/L BUN 43 H 43 H (6-23) mg/dl Creatinine 1.43 H 1.47 H (0.6-1.2) mg/dl Glucose 170 H 145 H (70-99(Fasting)) mg/dl Calcium 9.3 8.4 L (8.6-10.3) mg/dl AST 66 H 82 H (13-39) U/L ALT 22 36 (7-52) U/L Alkaline Phosphatase 216 H 158 H (34-104) U/L Total Protein 7.0 5.6 L (6.0-8.3) gm/dl Albumin 3.9 3.1 L (3.4-5.0) gm/dl Intake and Output 07/15/24 07/16/24 07/16/24 22:59 06:59 14:59 Intake Total 1100 / 1300 200 / 1300 2200 / 2200 Balance 1100 / 1300 200 / 1300 2200 / 2200 Intake: IV 1100 / 1100 2200 / 2200 Acetaminophen 1,000 mg In 100 100 / 100 ml @ 400 mls/hr IV NOW STA Rx#: [id number] Doxycycline Hyclate 100 mg In 100 / 100 Dextrose 5% Mini-B 100 ml @ 50 mls/hr IV NOW STA Rx#:[id number] Magnesium Sulfate / D5w 1 gm In 100 / 100 100 ml @ 100 mls/hr IV NOW STA Rx#:[id number] Sodium Chloride 0.9% 500 ml @ 500 / 500 2000 / 2000 999 mls/hr IV .Q31M ONE Rx#: [id number] Sodium Chloride 0.9% 500 ml @ 500 / 500 999 mls/hr IV .Q31M ONE Rx#: [id number] Oral 200 / 200 Other: # Emeses 1 Weight 70.9 kg 71.2 kg Weight Measurement Method [facility] Built in [facility] Diagnostic Findings Head CT: No acute changes. Cerebral atrophy. Stable chronic bilateral maxillary sinusitis. Chest x-ray on admission revealed a focus of vague groundglass density in the right lung most concerning for pneumonia Telemetry: Atrial fibrillation/flutter, intermittently with a rapid ventricular response. No periods of sinus. (7) CKD (chronic kidney disease) Chronic kidney disease stage: unspecified stage Qualified Code(s): N18.9 - Chronic kidney disease, unspecified (12) Sepsis Sepsis acute organ dysfunction status: with acute organ dysfunction Sepsis type: sepsis due to unspecified organism Severe sepsis acute organ dysfunction type: unspecified
[2024-07-16] MEDS: DIGOXIN 250 MCG in SYRINGE 9 ML IV STA (12:21)
[2024-07-16] MEDS: ACETAMINOPHEN 325 MG TAB PO PRN (12:22)
--- NOTE | 2024-07-16 15:22 | Electrocardiogram Report ---
Test Reason : Blood Pressure : */* mmHG Vent. Rate : 136 BPM Atrial Rate : 241 BPM P-R Int : 100 ms QRS Dur : 72 ms QT Int : 286 ms P-R-T Axes : 256 30 102 degrees QTcB Int : 430 ms Atrial fibrillation with rapid ventricular response Nonspecific ST and T wave abnormality Abnormal ECG When compared with ECG of 25-May-2024 10:25, Atrial fibrillation has replaced Atrial flutter Vent. rate has increased by 50 bpm T wave inversion no longer evident in Inferior leads T wave inversion no longer evident in Anterolateral leads Confirmed by Allan Paulino ([id number]) on 07/16/2024 3:22:27 PM Referred By: REFERRED SELF Confirmed By: Allan Paulino
--- NOTE | 2024-07-16 15:23 | Electrocardiogram Report ---
Test Reason : Blood Pressure : */* mmHG Vent. Rate : 92 BPM Atrial Rate : 264 BPM P-R Int : * ms QRS Dur : 78 ms QT Int : 366 ms P-R-T Axes : * 68 -45 degrees QTcB Int : 452 ms Atrial flutter with variable A-V block Low voltage QRS Nonspecific ST and T wave abnormality Abnormal ECG When compared with ECG of 15-Jul-2024 16:06, Atrial flutter has replaced Atrial fibrillation T wave amplitude has decreased in Anterior leads Confirmed by Allan Paulino ([id number]) on 07/16/2024 3:23:21 PM Referred By: REFERRED SELF Confirmed By: Allan Paulino
[2024-07-16] MEDS: ALBUMIN 25% 25 GM/100 ML VIAL IV SCH (18:34)
[2024-07-16] MEDS: METOPROLOL SUCC 50MG EXT REL TAB PO SCH (20:35)
[2024-07-17 06:38] LABS: Hematocrit (blood only) 27.6 % (37.0-47.0); Hemoglobin 8.9 g/dl (12.0-16.0); Mean Corpuscular Hemoglobin 30.8 pg (25.0-34.0); Mean Corpuscular Hgb Conc 32.2 g/dL (32.0-36.0); Mean Corpuscular Volume 95.5 fL (80.0-100.0); Mean Platelet Volume 11.3 fL (9.4-12.4); Platelet Count 112 K/uL (130-400); RDW Coefficient of Variation 17.3 % (11.5-14.5); RDW Standard Deviation 60.2 fL (36.4-46.3); Red Blood Count 2.89 M/uL (4.20-5.40); White Blood Count 14.14 K/ul (4.8-10.8)
[2024-07-17 06:59] LABS: BUN Creatinine Ratio 32.5 (10-20); Creatinine Clr Calc Pharmacy 25.8 ml/min; Phosphorus 3.8 mg/dl (2.5-4.9)
--- NOTE | 2024-07-17 08:21 | Hospitalist Progress Note ---
Date of Service July 17, 2024 Assessment & Plan (1) Acute UTI: (2) Sepsis: (3) Confusion: (4) Persistent atrial fibrillation with rapid ventricular response: (5) Weakness: (6) Acute respiratory failure: Plan: Patient is 83 year old female with PMH DM II, CKD III, hypothyroidism, polyneuropathy, PVD, HLD, RADHA, moderate persistent asthma, nocturnal hypoxemia, COPD, paroxysmal atrial fibrillation s/p Watchman procedure, sick sinus syndrome s/p pacemaker placement, pulmonary hypertension, chronic diastolic CHF, left carotid artery aneurysm, aortic atherosclerosis, severe tricuspid regurgitation, s/p mitral valve clip for severe mitral regurgitation, GERD, history of TIA and others listed below presented to ER for weakness today. Sepsis Pneumonia Acute hypoxic respiratory failure Metabolic encephalopathy, secondary to above, now resolved COPD/asthma exacerbation UTI Human metapneumovirus In ER T: 38.9C, P: 136, R: 25, BP 149/97, 89% on room air up to 94% on 2 L nasal cannula WBC: 19. Lactate WNL. procalcitonin: 0.3 BioFire respiratory panel:+human metapneumovirus UA:3+leuk esterase, 4+bacteria, >50 WBC CXR: Focus of vague groundglass density in the right lung most concerning for pneumonia including viral etiologies. CT head: no acute intracranial findings Urine culture positive for E.coli In ER given 1000mL NSS, cefepime, 1 g Tylenol IV After IVF patient reassessed and HR: 129, R: 20, BP 117/69, 96% on 2 L via nasal cannula. Lungs with diffuse wheezing throughout, irregularly irregular per auscultation, rate 128, brisk capillary refill, patient alert and oriented x 3 blood cultures -pending Review of patient's allergy list has Keflex and penicillin as allergy. Per chart review patient received cefazolin last month postop. She received cefepime in ER today. Cefepime, doxycycline Mucinex, incentive spirometry, Xopenex nebs Supplemental oxygen as needed Given additional IVF on admission Will hold home torsemide for now CBC, BMP in a.m. WBC down to 14K Persistent atrial fibrillation with rapid ventricular response Not on anticoagulation secondary to history of GIB in past and is s/p Watchman S/P Watchman Procedure SSS s/p PPM H/O of LV thrombus HR in 130s in ER. Patient without palpitations, SOB, CP and is mentating normally. Suspect secondary to underlying illness and dehydration which treating as above and with IVF. Resume home metoprolol succinate Troponin: 29 Trend troponin 03/21/2024 echo: EF: 55-60%, s/p mitral valve clip, mild mitral regurgitation, moderate mitral stenosis, left atrium severely dilated, moderate-severe tricuspid regurgitation magnesium: 1.8. Will replace to keep at or above 2.0 If uncontrolled consider cardiology consult Continues to be in Afib w/ RVR given IV metoprolol, consulted cardiology - added digoxin, HR now much improved CKD III Recent TIFFANY with peak creatinine of 3 on 05/28/2024 had trended down to 1.0 on discharge on 06/02/2024 BUN: 43. Cr: 1.4 (was 1.4 on 07/05/2024) IVF Avoid nephrotoxic agents when possible If worsening consider nephrology consult Recent Fall and Right Femur Fracture S/P intertrochanteric nail Currently at [facility] for rehab PT/OT eval Fall precautions Continue fentanyl patch for pain Chronic Diastolic CHF Severe Tricuspid Regurgitation Hx of severe mitral regurg s/p Mitral Clip Noted dry on admission. Will hold home torsemide Monitor volume status Recent postop anemia Hgb: 10.8. Improved from 9.5 on 07/05/2024. Had low of 6.8 on 05/26/2024 and received 2 units PRBC during that hospitalization Continue iron supplement History mild Transaminitis: AST 66, alk phos: 216. Around patient's recent levels RADHA, Nocturnal Hypoxia: Continue baseline 2L O2 HS. DM II Diet-controlled. A1c was 6.9% on 03/24/24 Hypothyroidism: Continue levothyroxine DVT Prophylaxis SCDs PCU DNR/DNI as per discussion with pt Follows with Dr Calvo for routine care Admission and Anticipated Discharge Date Admission Date: July 15, 2024 Subjective Pt seen in follow up of sepsis, UTI, PNA + human metapneumovirus From [facility] , recent hx of fem. fx Found w/ fever, tachycardia, lethargic Now sitting up in bed in NAD, but developed Afib w/ RVR Denies chest pain, shortness of breath, palpitations, abd. pain, n/v + had fever, today afebrile Daughter present at the bedside yesterday and updated, today updated over the phone WBC down to 14K Cardiology consulted, added digoxin, HR improved and pt overall feels better today Review of Systems Review of Systems: All systems reviewed & are unremarkable except as noted in Subjective Physical Exam Physical Exam: General: +ill appearing, no apparent distress, WDWN, elderly F Head: normocephalic, atraumatic Eyes: PERRL, EOM's intact, conjunctiva non-injected, anicteric ENT: normal inspection external ears, nose, mucous membranes dry Neck: supple Lungs: no respiratory distress on suppl. O2 via NC, + mild wheezing CV: irregularly irregular, no pretibial edema Abd: normal BS, soft, non-tender Ext: moves extremities Neuro: A&O x 3, speech fluent, no facial asymmetry, moves extremities Skin: warm, dry Results & Data Results & Data Vital Signs (Past 12 Hours) Vital Signs Temp Pulse Pulse Resp BP Pulse Ox O2 Del Method 07/17/24 07:45 87 07/17/24 07:24 36.5 C 88 18 106/66 98 Nasal Cannula 07/17/24 04:13 36.5 C 91 H 18 97/69 L 92 Nasal Cannula 07/16/24 22:53 36.7 C 85 18 93/52 L 97 Nasal Cannula O2 Flow Rate 07/17/24 07:45 07/17/24 07:24 2 07/17/24 04:13 2 07/16/24 22:53 2 Laboratory Results 07/17/24 07/17/24 07/16/24 Range/Units 08:16 05:32 19:58 WBC 14.14 H (4.8-10.8) K/ul RBC 2.89 L (4.20-5.40) M/uL Hgb 8.9 L (12.0-16.0) g/dl Hct 27.6 L (37.0-47.0) % MCV 95.5 (80.0-100.0) fL MCH 30.8 (25.0-34.0) pg MCHC 32.2 (32.0-36.0) g/dL RDW Std Deviation 60.2 H (36.4-46.3) fL RDW Coeff of Francisco Javier 17.3 H (11.5-14.5) % Plt Count 112 L (130-400) K/uL MPV 11.3 (9.4-12.4) fL Sodium 136 (136-145) mmol/L Potassium 4.0 (3.5-5.1) mmol/L Chloride 107 (98-107) mmol/L Carbon Dioxide 21 (21-32) mmol/L Anion Gap 8 (3-11) BUN 52 H (6-23) mg/dl Creatinine 1.60 H (0.6-1.2) mg/dl Est Cr Clr Drug Dosing 25.8 ml/min eGFR 31.80 BUN/Creatinine Ratio 32.5 H (10-20) Glucose 95 (70-99(Fasting)) mg/dl POC Glucose 87 177 H (70-99) mg/dl Calcium 9.0 (8.6-10.3) mg/dl Phosphorus 3.8 (2.5-4.9) mg/dl Magnesium 2.0 (1.7-2.4) mg/dl 07/16/24 07/16/24 Range/Units 17:06 12:23 WBC (4.8-10.8) K/ul RBC (4.20-5.40) M/uL Hgb (12.0-16.0) g/dl Hct (37.0-47.0) % MCV (80.0-100.0) fL MCH (25.0-34.0) pg MCHC (32.0-36.0) g/dL RDW Std Deviation (36.4-46.3) fL RDW Coeff of Francisco Javier (11.5-14.5) % Plt Count (130-400) K/uL MPV (9.4-12.4) fL Sodium (136-145) mmol/L Potassium (3.5-5.1) mmol/L Chloride (98-107) mmol/L Carbon Dioxide (21-32) mmol/L Anion Gap (3-11) BUN (6-23) mg/dl Creatinine (0.6-1.2) mg/dl Est Cr Clr Drug Dosing ml/min eGFR BUN/Creatinine Ratio (10-20) Glucose (70-99(Fasting)) mg/dl POC Glucose 151 H 146 H (70-99) mg/dl Calcium (8.6-10.3) mg/dl Phosphorus (2.5-4.9) mg/dl Magnesium (1.7-2.4) mg/dl Medications Administered Current Inpatient Medications Acetaminophen (Acetaminophen 325 Mg Tab) 650 mg PO Q4H PRN PRN Reason: Pain or Fever Stop: 08/14/24 21:42 Last Admin: 07/16/24 12:22 Dose: 650 mg Allopurinol (Allopurinol 300 Mg Tab) 300 mg PO HS JULIO CESAR Stop: 08/14/24 21:59 Last Admin: 07/16/24 20:35 Dose: 300 mg Aspirin (Aspirin 81 Mg Ectab) 81 mg PO QAM JULIO CESAR Stop: 08/15/24 08:59 Last Admin: 07/16/24 08:57 Dose: 81 mg Atorvastatin Calcium (Atorvastatin 20 Mg Tab) 20 mg PO QAM JULIO CESAR Stop: 08/15/24 08:59 Last Admin: 07/16/24 08:57 Dose: 20 mg Buspirone HCl (Buspirone 5 Mg Tab) 5 mg PO AMHS JULIO CESAR Stop: 08/14/24 21:59 Last Admin: 07/16/24 20:35 Dose: 5 mg Doxycycline Hyclate (Doxycycline Hyclate 100 Mg Cap) 100 mg PO BID JULIO CESAR Stop: 07/21/24 08:59 Last Admin: 07/16/24 20:35 Dose: 100 mg Fentanyl (Fentanyl 12 Mcg/Hr Tdsy) 1 patch TD Q3D JULIO CESAR Stop: 07/31/24 18:59 Ferrous Sulfate (Ferrous Sulfate 325 Mg Tab) 325 mg PO 1100 JULIO CESAR Stop: 08/15/24 10:59 Last Admin: 07/16/24 10:41 Dose: Not Given Guaifenesin (Guaifenesin 600 Mg Tabcr) 600 mg PO Q12 JULIO CESAR Stop: 08/14/24 21:59 Last Admin: 07/16/24 20:35 Dose: 600 mg Cefepime HCl (Maxipime 2000mg) 2,000 mg in 20 mls @ 5 mls/min IV Q12H JULIO CESAR Stop: 07/21/24 04:59 Last Admin: 07/17/24 05:57 Dose: 5 mls/min Albumin Human (Albumin 25%) 25 gm in 100 mls @ 50 mls/hr IV Q8H JULIO CESAR Stop: 07/19/24 17:59 Last Infusion: 07/17/24 06:34 Dose: Infused Ipratropium [place] (Ipratropium [place] Nasal [place] 0.06% 15ml) 1 sprays OLVIN DAILY PRN PRN Reason: rhinorrhea Stop: 08/14/24 22:00 Lactobacillus Acidophilus (Advanced Probiotic 625 Mg Capsule) 1,250 mg PO DAILY JULIO CESAR Stop: 08/15/24 08:59 Last Admin: 07/16/24 08:57 Dose: 1,250 mg Levalbuterol HCl (Levalbuterol 1.25 Mg/3 Ml Neb) 1.25 mg NEB Q6H PRN PRN Reason: Shortness Of Breath Or Wheezing Stop: 08/14/24 21:42 Last Admin: 07/16/24 08:25 Dose: 1.25 mg Levothyroxine Sodium (Levothyroxine Sodium 175 Mcg Tablet) 175 mcg PO DAILYBB [facility] Stop: 08/15/24 06:29 Last Admin: 07/17/24 05:57 Dose: 175 mcg Melatonin (Melatonin 3 Mg Tab) 6 mg PO HS JULIO CESAR Stop: 08/14/24 21:59 Last Admin: 07/16/24 20:36 Dose: 6 mg Metoprolol Succinate (Metoprolol Succ 50mg Ext Rel Tab) 50 mg PO BID JULIO CESAR Stop: 08/15/24 20:59 Last Admin: 07/16/24 20:35 Dose: 50 mg Miscellaneous (Fentanyl Patch Remove & Waste) 1 each N/A Q3D [facility] Stop: 08/16/24 18:59 Miscellaneous (Check Fentanyl Patch Placement) 1 each N/A QS [facility] Stop: 08/15/24 00:00 Last Admin: 07/17/24 01:11 Dose: 1 each Montelukast Sodium (Montelukast Sodium 10 Mg Tablet) 10 mg PO PM JULIO CESAR Stop: 08/14/24 21:59 Last Admin: 07/16/24 20:36 Dose: 10 mg Ondansetron HCl (Ondansetron Inj 2 Mg/Ml 2 Ml Vial) 4 mg IV Q6H PRN PRN Reason: Nausea Stop: 08/14/24 21:42 Last Admin: 07/16/24 09:39 Dose: 4 mg Pantoprazole Sodium (Pantoprazole 40 Mg Tab) 40 mg PO AMHS JULIO CESAR Stop: 08/14/24 21:59 Last Admin: 07/16/24 20:36 Dose: 40 mg Polyethylene Glycol (Polyethylene (Miralax) 17 Gm Pack) 17 gm PO DAILY PRN PRN Reason: Constipation Stop: 08/14/24 21:42 Sertraline HCl (Sertraline Hcl 100 Mg Tablet) 150 mg PO QAM [facility] Stop: 08/15/24 08:59 Last Admin: 07/16/24 08:58 Dose: 150 mg Umeclidinium/Vilanterol (Umeclidinium/Vilanterol 62.5/25mcg 7 Puffs/Inhaler) 1 puffs INH DAILY [facility] Stop: 08/15/24 08:59 Last Admin: 07/16/24 08:58 Dose: 1 puffs Vitamin D (Cholecalciferol 25 Mcg (1000 Units) Tab) 100 mcg PO QAM [facility] Stop: 08/15/24 08:59 Last Admin: 07/16/24 08:57 Dose: 100 mcg (2) Sepsis Sepsis acute organ dysfunction status: with acute organ dysfunction Sepsis type: sepsis due to unspecified organism Severe sepsis acute organ dysfunction type: unspecified
--- NOTE | 2024-07-17 09:17 | Electrocardiogram Report ---
Test Reason : Blood Pressure : */* mmHG Vent. Rate : 139 BPM Atrial Rate : 141 BPM P-R Int : 168 ms QRS Dur : 82 ms QT Int : 280 ms P-R-T Axes : * 33 123 degrees QTcB Int : 426 ms Atrial flutter with PVCs vs aberrant conduction Low voltage QRS Nonspecific ST and T wave abnormality Abnormal ECG When compared with ECG of 16-Jul-2024 05:04, (unconfirmed) Vent. rate has increased by 47 bpm Confirmed by Elmer Dahl [id number]) on 07/17/2024 9:17:39 AM Referred By: REFERRED SELF Confirmed By: Elmer Dahl
--- NOTE | 2024-07-17 10:27 | Cardiology Progress Note ---
Date of Service July 17, 2024 Assessment & Plan (1) Persistent atrial fibrillation with rapid ventricular response: (2) Acute UTI: Plan: E. coli on urine culture. Human metapneumovirus noted on respiratory panel. Ventricular rates improved since titrating metoprolol succinate to 50 mg twice daily. Patient received a dose of 250 mcg of digoxin x 1 on 07/16/2024. Will hold off on further digoxin at present his rates are improved. Creatinine trended up to 1.6. Patient's prior to hospital treatment torsemide 20 mg daily remains on hold. Continue aspirin. Patient not on anticoagulation due to history of anemia, and has had a percutaneous left atrial appendage occlusion device (Watchman device) placed. Admission and Anticipated Discharge Date Admission Date: July 15, 2024 Subjective Patient seen in cardiology follow-up. Still requiring 2 L nasal cannula oxygen supplementation. No acute complaints with regards to palpitations or shortness of breath. Telemetry reveals atrial fibrillation which is rate controlled in the 80s. Her last 24 hours there has been interval improvement in the ventricular rates. Physical Exam Constitutional: + ill appearing (Chronically ill in appe arance without acute distress) Respiratory: + cough; no respiratory distress Ausc ultation: + diminished lung sounds (Decreased breath sounds at the bases bilaterally); no crackles and no rales Cardiovascular: Rate/Rhythm: + irregularly irregular Heart Sounds: + murmur (1/6 systolic murmur) Vessels: no JVD Extremities: no edema Gastrointestinal (Abdomen): normal bowel sounds, soft, nontender, no hepatosplenomegaly Neurologic: PERRL, EOMI, accommodation nl, no face palsy, no dysarthria Results & Data Vital Signs (Past 12 Hours) Vital Signs Temp Pulse Pulse Resp BP Pulse Ox O2 Del Method 07/17/24 07:45 87 07/17/24 07:24 36.5 C 88 18 106/66 98 Nasal Cannula 07/17/24 04:13 36.5 C 91 H 18 97/69 L 92 Nasal Cannula 07/16/24 22:53 36.7 C 85 18 93/52 L 97 Nasal Cannula O2 Flow Rate 07/17/24 07:45 07/17/24 07:24 2 07/17/24 04:13 2 07/16/24 22:53 2
[2024-07-17] MEDS: CEFEPIME 1000MG 1,000 MG/10 ML SYR IV SCH (17:08)
[2024-07-17] MEDS: fentaNYL 12 MCG/HR TDSY TD SCH (20:46)
[2024-07-18 06:23] LABS: Mean Corpuscular Hemoglobin 30.6 pg (25.0-34.0); Mean Corpuscular Hgb Conc 32.1 g/dL (32.0-36.0); Mean Corpuscular Volume 95.2 fL (80.0-100.0); Mean Platelet Volume 12.3 fL (9.4-12.4); Nucleated RBC # (auto) 0.02 K/uL (0.00-0.12); Nucleated RBC % (auto) 0.2 %; Platelet Count 107 K/uL (130-400); RDW Coefficient of Variation 17.2 % (11.5-14.5); RDW Standard Deviation 60.5 fL (36.4-46.3); Red Blood Count 2.94 M/uL (4.20-5.40); White Blood Count 11.31 K/ul (4.8-10.8)
[2024-07-18 06:35] LABS: BUN Creatinine Ratio 31.6 (10-20); Calcium 9.3 mg/dl (8.6-10.3); Creatinine Clr Calc Pharmacy 23.5 ml/min; Phosphorus 3.6 mg/dl (2.5-4.9); Potassium 3.9 mmol/L (3.5-5.1)
--- NOTE | 2024-07-18 07:23 | Hospitalist Progress Note ---
Date of Service July 18, 2024 Assessment & Plan (1) Acute UTI: (2) Sepsis: (3) Confusion: (4) Persistent atrial fibrillation with rapid ventricular response: (5) Weakness: (6) Acute respiratory failure: Plan: Patient is 83 year old female with PMH DM II, CKD III, hypothyroidism, polyneuropathy, PVD, HLD, RADHA, moderate persistent asthma, nocturnal hypoxemia, COPD, paroxysmal atrial fibrillation s/p Watchman procedure, sick sinus syndrome s/p pacemaker placement, pulmonary hypertension, chronic diastolic CHF, left carotid artery aneurysm, aortic atherosclerosis, severe tricuspid regurgitation, s/p mitral valve clip for severe mitral regurgitation, GERD, history of TIA and others listed below presented to ER for weakness today. Sepsis Pneumonia Acute hypoxic respiratory failure Metabolic encephalopathy, secondary to above, now resolved COPD/asthma exacerbation UTI Human metapneumovirus Bacteremia In ER T: 38.9C, P: 136, R: 25, BP 149/97, 89% on room air up to 94% on 2 L nasal cannula WBC: 19. Lactate WNL. procalcitonin: 0.3 BioFire respiratory panel:+human metapneumovirus UA:3+leuk esterase, 4+bacteria, >50 WBC CXR: Focus of vague groundglass density in the right lung most concerning for pneumonia including viral etiologies. CT head: no acute intracranial findings Urine culture positive for E.coli In ER given 1000mL NSS, cefepime, 1 g Tylenol IV After IVF patient reassessed and HR: 129, R: 20, BP 117/69, 96% on 2 L via nasal cannula. Lungs with diffuse wheezing throughout, irregularly irregular per auscultation, rate 128, brisk capillary refill, patient alert and oriented x 3 Blood cultures - positive for Staph, not MRSA - repeat blood cultx. Pt already on cefepime, follow final cultx results. ID consulted Review of patient's allergy list has Keflex and penicillin as allergy. Per chart review patient received cefazolin last month postop. She received cefepime in ER on current admission Cefepime, doxycycline Mucinex, incentive spirometry, Xopenex nebs Supplemental oxygen as needed Given additional IVF on admission hold home torsemide for now CBC, BMP in a.m. WBC down to 11.3K Persistent atrial fibrillation with rapid ventricular response Not on anticoagulation secondary to history of GIB in past and is s/p Watchman S/P Watchman Procedure SSS s/p PPM H/O of LV thrombus HR in 130s in ER. Patient without palpitations, SOB, CP and is mentating normally. Suspect secondary to underlying illness and dehydration which treating as above and with IVF. Resume home metoprolol succinate Troponin: 29 Trend troponin 03/21/2024 echo: EF: 55-60%, s/p mitral valve clip, mild mitral regurgitation, moderate mitral stenosis, left atrium severely dilated, moderate-severe tricuspid regurgitation magnesium: 1.8. Will replace to keep at or above 2.0 If uncontrolled consider cardiology consult Continues to be in Afib w/ RVR given IV metoprolol, consulted cardiology - added digoxin, HR now much improved TIFFANY on CKD III Recent TIFFANY with peak creatinine of 3 on 05/28/2024 had trended down to 1.0 on discharge on 06/02/2024 BUN: 43. Cr: 1.4 (was 1.4 on 07/05/2024) IVF Avoid nephrotoxic agents when possible Cr now 1.77, will consult w/ nephrology - recommend starting torsemide 10 daily Recent Fall and Right Femur Fracture S/P intertrochanteric nail Currently at [facility] for rehab PT/OT eval Fall precautions Continue fentanyl patch for pain Chronic Diastolic CHF Severe Tricuspid Regurgitation Hx of severe mitral regurg s/p Mitral Clip Noted dry on admission. Will hold home torsemide Monitor volume status Recent postop anemia Hgb: 10.8. Improved from 9.5 on 07/05/2024. Had low of 6.8 on 05/26/2024 and received 2 units PRBC during that hospitalization Continue iron supplement History mild Transaminitis: AST 66, alk phos: 216. Around patient's recent levels RADHA, Nocturnal Hypoxia: Continue baseline 2L O2 HS. DM II Diet-controlled. A1c was 6.9% on 03/24/24 Hypothyroidism: Continue levothyroxine DVT Prophylaxis SCDs PCU DNR/DNI as per discussion with pt Follows with Dr Calvo for routine care Admission and Anticipated Discharge Date Admission Date: July 15, 2024 Subjective Pt seen in follow up of sepsis, UTI, PNA + human metapneumovirus From [facility] , recent hx of fem. fx Found w/ fever, tachycardia, lethargic, now afebrile, mental status back to baseline Developed Afib w/ RVR -> Cardiology consulted, added digoxin, HR improved Denies chest pain, shortness of breath, palpitations, abd. pain, n/v Daughter updated over the phone yesterday WBC down to 11.3K Cr 1.77 - discussed w/ nephrology - will start torsemide Blood cultx posit for Staph / MSSA - discussed w/ nephrology and cardiology. ID consulted Review of Systems Review of Systems: All systems reviewed & are unremarkable except as noted in Subjective Physical Exam Physical Exam: General: +ill appearing, no apparent distress, WDWN, elderly F Head: normocephalic, atraumatic Eyes: PERRL, EOM's intact, conjunctiva non-injected, anicteric ENT: normal inspection external ears, nose, mucous membranes dry Neck: supple Lungs: no respiratory distress on suppl. O2 via NC, + rhonchi, +crackles, +wheezing CV: irregularly irregular, no pretibial edema Abd: normal BS, soft, non-tender Ext: moves extremities Neuro: A&O x 3, speech fluent, no facial asymmetry, moves extremities Skin: warm, dry Results & Data Results & Data Vital Signs (Past 12 Hours) Vital Signs Temp Pulse Resp BP Pulse Ox O2 Del Method O2 Flow Rate 07/18/24 07:07 36.4 C L 81 18 112/67 99 Nasal Cannula 2 07/18/24 03:39 36.8 C 85 20 107/70 91 Nasal Cannula 2 07/17/24 23:25 36.5 C 85 18 126/75 95 Nasal Cannula 2 07/17/24 19:53 36.8 C 82 18 119/73 98 Nasal Cannula 2 Laboratory Results 07/18/24 07/17/24 07/17/24 Range/Units 05:47 20:17 17:04 WBC 11.31 H (4.8-10.8) K/ul RBC 2.94 L (4.20-5.40) M/uL Hgb 9.0 L (12.0-16.0) g/dl Hct 28.0 L (37.0-47.0) % MCV 95.2 (80.0-100.0) fL MCH 30.6 (25.0-34.0) pg MCHC 32.1 (32.0-36.0) g/dL RDW Std Deviation 60.5 H (36.4-46.3) fL RDW Coeff of Francisco Javier 17.2 H (11.5-14.5) % Plt Count 107 L (130-400) K/uL MPV 12.3 (9.4-12.4) fL Absolute Nucleated RBC 0.02 (0.00-0.12) K/uL Nucleated RBC % (auto) 0.2 % Sodium 137 (136-145) mmol/L Potassium 3.9 (3.5-5.1) mmol/L Chloride 107 (98-107) mmol/L Carbon Dioxide 20 L (21-32) mmol/L Anion Gap 10 (3-11) BUN 56 H (6-23) mg/dl Creatinine 1.77 H (0.6-1.2) mg/dl Est Cr Clr Drug Dosing 23.5 ml/min eGFR 28.17 BUN/Creatinine Ratio 31.6 H (10-20) Glucose 109 H (70-99(Fasting)) mg/dl POC Glucose 177 H 122 H (70-99) mg/dl Calcium 9.3 (8.6-10.3) mg/dl Phosphorus 3.6 (2.5-4.9) mg/dl Magnesium 2.0 (1.7-2.4) mg/dl 07/17/24 07/17/24 Range/Units 12:19 08:16 WBC (4.8-10.8) K/ul RBC (4.20-5.40) M/uL Hgb (12.0-16.0) g/dl Hct (37.0-47.0) % MCV (80.0-100.0) fL MCH (25.0-34.0) pg MCHC (32.0-36.0) g/dL RDW Std Deviation (36.4-46.3) fL RDW Coeff of Francisco Javier (11.5-14.5) % Plt Count (130-400) K/uL MPV (9.4-12.4) fL Absolute Nucleated RBC (0.00-0.12) K/uL Nucleated RBC % (auto) % Sodium (136-145) mmol/L Potassium (3.5-5.1) mmol/L Chloride (98-107) mmol/L Carbon Dioxide (21-32) mmol/L Anion Gap (3-11) BUN (6-23) mg/dl Creatinine (0.6-1.2) mg/dl Est Cr Clr Drug Dosing ml/min eGFR BUN/Creatinine Ratio (10-20) Glucose (70-99(Fasting)) mg/dl POC Glucose 118 H 87 (70-99) mg/dl Calcium (8.6-10.3) mg/dl Phosphorus (2.5-4.9) mg/dl Magnesium (1.7-2.4) mg/dl Medications Administered Current Inpatient Medications Acetaminophen (Acetaminophen 325 Mg Tab) 650 mg PO Q4H PRN PRN Reason: Pain or Fever Stop: 08/14/24 21:42 Last Admin: 07/16/24 12:22 Dose: 650 mg Allopurinol (Allopurinol 300 Mg Tab) 300 mg PO HS [facility] Stop: 08/14/24 21:59 Last Admin: 07/17/24 20:51 Dose: 300 mg Aspirin (Aspirin 81 Mg Ectab) 81 mg PO QAM JULIO CESAR Stop: 08/15/24 08:59 Last Admin: 07/17/24 09:24 Dose: 81 mg Atorvastatin Calcium (Atorvastatin 20 Mg Tab) 20 mg PO QAM JULIO CESAR Stop: 08/15/24 08:59 Last Admin: 07/17/24 09:24 Dose: 20 mg Buspirone HCl (Buspirone 5 Mg Tab) 5 mg PO AMHS JULIO CESAR Stop: 08/14/24 21:59 Last Admin: 07/17/24 20:51 Dose: 5 mg Doxycycline Hyclate (Doxycycline Hyclate 100 Mg Cap) 100 mg PO BID JULIO CESAR Stop: 07/21/24 08:59 Last Admin: 07/17/24 20:51 Dose: 100 mg Fentanyl (Fentanyl 12 Mcg/Hr Tdsy) 1 patch TD Q3D JULIO CESAR Stop: 07/31/24 18:59 Last Admin: 07/17/24 20:46 Dose: 1 patch Ferrous Sulfate (Ferrous Sulfate 325 Mg Tab) 325 mg PO 1100 [facility] Stop: 08/15/24 10:59 Last Admin: 07/17/24 12:00 Dose: 325 mg Guaifenesin (Guaifenesin 600 Mg Tabcr) 600 mg PO Q12 JULIO CESAR Stop: 08/14/24 21:59 Last Admin: 07/17/24 20:51 Dose: 600 mg Albumin Human (Albumin 25%) 25 gm in 100 mls @ 50 mls/hr IV Q8H JULIO CESAR Stop: 07/19/24 17:59 Last Infusion: 07/18/24 07:10 Dose: Infused Cefepime HCl (Maxipime 2000mg) 1,000 mg in 10 mls @ 5 mls/min IV Q12H JULIO CESAR Stop: 07/21/24 17:59 Last Admin: 07/18/24 05:47 Dose: 5 mls/min Ipratropium Gilbert (Ipratropium Gilbert Nasal Powers 0.06% 15ml) 1 sprays OLVIN DAILY PRN PRN Reason: rhinorrhea Stop: 08/14/24 22:00 Lactobacillus Acidophilus (Advanced Probiotic 625 Mg Capsule) 1,250 mg PO DAILY [facility] Stop: 08/15/24 08:59 Last Admin: 07/17/24 09:25 Dose: 1,250 mg Levalbuterol HCl (Levalbuterol 1.25 Mg/3 Ml Neb) 1.25 mg NEB Q6H PRN PRN Reason: Shortness Of Breath Or Wheezing Stop: 08/14/24 21:42 Last Admin: 07/16/24 08:25 Dose: 1.25 mg Levothyroxine Sodium (Levothyroxine Sodium 175 Mcg Tablet) 175 mcg PO DAILYBB [facility] Stop: 08/15/24 06:29 Last Admin: 07/18/24 05:47 Dose: 175 mcg Melatonin (Melatonin 3 Mg Tab) 6 mg PO HS [facility] Stop: 08/14/24 21:59 Last Admin: 07/17/24 20:48 Dose: 6 mg Metoprolol Succinate (Metoprolol Succ 50mg Ext Rel Tab) 50 mg PO BID JULIO CESAR Stop: 08/15/24 20:59 Last Admin: 07/17/24 20:51 Dose: 50 mg Miscellaneous (Fentanyl Patch Remove & Waste) 1 each N/A Q3D [facility] Stop: 08/16/24 18:59 Last Admin: 07/17/24 20:45 Dose: 1 each Miscellaneous (Check Fentanyl Patch Placement) 1 each N/A QS [facility] Stop: 08/15/24 00:00 Last Admin: 07/18/24 01:57 Dose: 1 each Montelukast Sodium (Montelukast Sodium 10 Mg Tablet) 10 mg PO PM JULIO CESAR Stop: 08/14/24 21:59 Last Admin: 07/17/24 20:51 Dose: 10 mg Ondansetron HCl (Ondansetron Inj 2 Mg/Ml 2 Ml Vial) 4 mg IV Q6H PRN PRN Reason: Nausea Stop: 08/14/24 21:42 Last Admin: 07/16/24 09:39 Dose: 4 mg Pantoprazole Sodium (Pantoprazole 40 Mg Tab) 40 mg PO AMHS JULIO CESAR Stop: 08/14/24 21:59 Last Admin: 07/17/24 20:51 Dose: 40 mg Polyethylene Glycol (Polyethylene (Miralax) 17 Gm Pack) 17 gm PO DAILY PRN PRN Reason: Constipation Stop: 08/14/24 21:42 Sertraline HCl (Sertraline Hcl 100 Mg Tablet) 150 mg PO QAM JULIO CESAR Stop: 08/15/24 08:59 Last Admin: 07/17/24 09:26 Dose: 150 mg Umeclidinium/Vilanterol (Umeclidinium/Vilanterol 62.5/25mcg 7 Puffs/Inhaler) 1 puffs INH DAILY JULIO CESAR Stop: 08/15/24 08:59 Last Admin: 07/17/24 09:24 Dose: 1 puffs Vitamin D (Cholecalciferol 25 Mcg (1000 Units) Tab) 100 mcg PO QAM JULIO CESAR Stop: 08/15/24 08:59 Last Admin: 07/17/24 09:25 Dose: 100 mcg (2) Sepsis Sepsis acute organ dysfunction status: with acute organ dysfunction Sepsis type: sepsis due to unspecified organism Severe sepsis acute organ dysfunction type: unspecified
[2024-07-18 11:33] LABS: A calco-baum cmplx NotReported Not Detected (NotDetected); Bact fragilis Not Reported Not Detected (NotDetected); Blood Culture Id Panel See PCR Comment (NotDetected); C auris Not Reported Not Detected (NotDetected); Calbicans Not Reported Not Detected (NotDetected); Candida glabrata Not Reported Not Detected (NotDetected); Candida krusei Not Reported Not Detected (NotDetected); Cneoformans/gatti Not Reported Not Detected (NotDetected); Cparapsilosis Not Reported Not Detected (NotDetected); E cloacae compx Not Reported Not Detected (NotDetected); Efaecalis Not Reported Not Detected (NotDetected); Efaecium Not Reported Not Detected (NotDetected); Enterobacterales Not Reported Not Detected (NotDetected); Escherichia coli Not Reported Not Detected (NotDetected); H influenzae Not Reported Not Detected (NotDetected); K aerogenes Not Reported Not Detected (NotDetected); Koxytoca Not Reported Not Detected (NotDetected); Kpneumoniae grp Not Reported Not Detected (NotDetected); Lmonocyt Not Reported Not Detected (NotDetected); N meningitidis Not Reported Not Detected (NotDetected); P aeruginosa Not Reported Not Detected (NotDetected); Proteus spp Not Reported Not Detected (NotDetected); Salmonella spp Not Reported Not Detected (NotDetected); Staph lugdunensis Not Reported Not Detected (NotDetected); Staph spp. Not Reported DETECTED (NotDetected); Staphaureus Not Reported DETECTED (NotDetected); Staphepi Not Reported Not Detected (NotDetected); Staphylococcus spp. DETECTED (NotDetected); Stenmaltophilia Not Reported Not Detected (NotDetected); Strep agal(GrpB) Not Reported Not Detected (NotDetected); Strep pneum Not Reported Not Detected (NotDetected); Strep pyog (GrpA) Not Reported Not Detected (NotDetected); Strep spp Not Reported Not Detected (NotDetected); mecAC+MREJ Resistant Gene MRSA Not Detected (NotDetected)
--- NOTE | 2024-07-18 13:08 | Nephrology Consultation ---
Date of Consultation July 18, 2024 Assessment & Plan (1) Acute kidney injury superimposed on stage 3b chronic kidney disease: Baseline creatinine is in early to mid1.0's, this was 1.4 on admission gradually risen to 1.7 today.She was found to be in AF and has been hypotensive, She has also received IV fluid ( 1100 on 07/15 and 3400 on 07/17). orsemide was held the day of admission. as per [facility] records she was anoscopy by Dr. Rios on the 07/05,when the torsemide was doubled to 20 mg daily.Looks like her weight is @ 70-71 kg at baseline -Decline in Renal functions 2/ hemodynamic instability and likley fluid overload.HR is now controlled. - Restart Torsemide at 10 mg daily,this can be uptitrated to 20 mg over the next few days. - d/c albumin. - Daily weight w/ Input and output - Daily BMP (2) Sepsis: likley source was Urine and chest ( Metapneumavirus) - She ia now growing + cocci in blood. -Recommend ID consult for ABx recommendation. - Renally dose Antibiotics (3) Diastolic congestive heart failure: Diuretic as above (4) Acute respiratory failure: 2/ Metapneumovirus, (5) Persistent atrial fibrillation with rapid ventricular response: Now controlled (6) S/P mitral valve clip implantation: History of Present Illness Reason for Consultation: Tiffany on CKD 3 Attending Physician: John Natarajan MD History of Present Illness Patient is 83 year old female with PMH DM II, CKD III( baseline cr in mid 1.0',Dr. Rios on 06/28,When she weighed 75.2 kg and torsemide was increased to 20 mg,Weight is generally between 70 to 71 kg at which she appears comfortable),She presented to the ER with generalized weakness , secondary to UTI and metapneumovirus. on admission serum creatinine was 1.4 which has slowly creeped up to 1.7 today. during the course of her hospital stay she went into AF with RVR which has now been controlled with metoprolol and digoxin. she also had episodes of hypotension on 07/16/. she has been on over the last 2 days which was stopped today. blood pressure is better. urine output was 300 mL yesterday has improved to 600 mls today, she has been on cefepime and Doxy, blood cultures today shows gram-positive cocci. In mild respiratory distress on exam,. Bilateral crepitations on auscultation, no pedal edema. Torsemide was stopped in the day of admission(07/15),She has received IV Fluids while inpatient.. Other significant PMH-hypothyroidism, polyneuropathy, PVD, HLD, RADHA, moderate persistent asthma, nocturnal hypoxemia, COPD, paroxysmal atrial fibrillation s/p Watchman procedure, sick sinus syndrome s/p pacemaker placement, pulmonary hypertension, chronic diastolic CHF, left carotid artery aneurysm, aortic atherosclerosis, severe tricuspid regurgitation, s/p mitral valve clip for severe mitral regurgitation, GERD, history of TIA Allergies Allergy/AdvReac Type Severity Reaction Status Date / Time Sulfa (Sulfonamide Allergy Severe Severe Verified 04/13/24 00:16 Antibiotics) rxn: rash and hives celecoxib Allergy Intermediate Rash/Hives/ Verified 04/13/24 00:16 Itching. cephalexin Allergy Intermediate Rash/Hives/ Verified 04/13/24 00:16 Itching. furosemide Allergy Intermediate Rash/Hives/ Verified 04/13/24 00:16 Itching. gabapentin Allergy Intermediate Rash/Hives/ Verified 04/13/24 00:16 Itching. pregabalin Allergy Intermediate Rash/Hives/ Verified 04/13/24 00:16 Itching. meclizine Allergy Unknown Unknown Verified 04/13/24 00:16 methylprednisolone Allergy Unknown Rash/Hives/ Verified 04/13/24 00:16 Itching. Penicillins Allergy Unknown Unknown. Verified 04/13/24 00:16 prednisone Allergy Unknown Rash/Hives/ Verified 04/13/24 00:16 Itching. vancomycin Allergy Unknown Jodi Verified 04/13/24 00:16 syn. . nickel Allergy Unknown Verified 04/13/24 00:16 dexamethasone AdvReac Intermediate Steroid Verified 04/13/24 00:16 psychosis. Home Medications Medication Instructions Recorded Confirmed Type montelukast 10 mg tablet 10 mg PO PM 04/08/19 07/15/24 History atorvastatin 20 mg tablet 20 mg PO QAM 11/26/21 07/15/24 History cholecalciferol (vitamin D3) 50 100 mcg PO QAM 11/26/21 07/15/24 History mcg (2,000 unit) capsule (Vitamin D3) levalbuterol tartrate 45 1 puff inhalation Q4H PRN 08/07/22 07/15/24 History mcg/actuation aerosol inhaler Shortness Of Breath Or Wheezing (Xopenex HFA) ipratropium bromide 21 mcg (0.03 2 spray intranasal DAILY PRN 12/06/22 07/15/24 History %) nasal spray rhinorrhea allopurinol 300 mg tablet 300 mg PO HS 08/14/23 07/15/24 History levothyroxine 175 mcg tablet 175 mcg PO DAILYBB 03/21/24 07/15/24 History fentanyl 12 mcg/hr transdermal 12 mcg transdermal Q3D 03/23/24 07/15/24 History patch benzonatate 100 mg capsule 100 mg PO Q6H PRN cough #20 caps 04/15/24 07/15/24 Rx guaifenesin 600 mg tablet, 600 mg PO Q12 PRN cough #20 tabs 04/15/24 07/15/24 Rx extended release 12 hr (Mucinex) buspirone 5 mg tablet 5 mg PO AMHS 05/13/24 07/15/24 History acetaminophen 500 mg tablet 500 mg PO Q8 PRN Fever Or Pain 07/15/24 07/15/24 History aspirin 81 mg tablet,delayed 81 mg PO QAM 07/15/24 07/15/24 History release ferrous sulfate 325 mg (65 mg 325 mg PO QAM 07/15/24 07/15/24 History iron) tablet,delayed release glycopyrrolate 9 mcg-formoterol 2 puff inhalation BID 07/15/24 07/15/24 History 4.8 mcg HFA aerosol inhaler (Bevespi Aerosphere) melatonin 5 mg tablet 5 mg PO HS 07/15/24 07/15/24 History metoprolol succinate 25 mg 25 mg PO HS 07/15/24 07/15/24 History tablet,extended release 24 hr metoprolol succinate 25 mg 37.5 mg PO QAM 07/15/24 07/15/24 History tablet,extended release 24 hr oxycodone 5 mg tablet 5 mg PO Q6H PRN Severe Pain (Scale 07/15/24 07/15/24 History Score 7-10) pantoprazole 40 mg tablet,delayed 40 mg PO AMHS 07/15/24 07/15/24 History release potassium chloride 10 mEq 10 meq PO BID 07/15/24 07/15/24 History tablet,extended release sertraline 150 mg capsule 150 mg PO QAM 07/15/24 07/15/24 History torsemide 10 mg tablet 20 mg PO DAILY 07/15/24 07/15/24 History Patient History Medical History Generalized weakness Pericardial effusion Low back pain Angio-edema Nausea Leukocytosis Near syncope Hypotension Dehydration TIFFANY (acute kidney injury) Near syncope Elevated brain natriuretic peptide (BNP) level Pneumonia Atrial flutter Carotid artery aneurysm Prolonged QT interval Atrial fibrillation with RVR DM type 2 (diabetes mellitus, type 2) Encounter for pre-operative examination Cholelithiasis Cholecystitis Chest pain at rest Pulmonary emphysema Osteoarthritis of right knee HTN (hypertension) Surgical History History of hysterectomy History of cholecystectomy Family History Father Diabetes Social History Smoking Status: Former smoker Tobacco Type: Cigarettes packs per day: 1.5; Cigarettes Per Day: 30; Second Hand Exposure: No; Do You Dip or Chew Tobacco: No; Hx Alcohol Use: No Hx Substance Use: No Preferred Language: Macanese Communication Ability: Impaired 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 O2 via NC, + mild wheezing CV: irregularly irregular. + Systolic murmer. Abd: normal BS, soft, non-tender Ext: No edema Neuro: A&O x 3, Results & Data Vital Signs (Past 12 Hours) Vital Signs Temp Pulse Pulse Resp BP Pulse Ox O2 Del Method 07/18/24 11:08 36.7 C 79 18 125/77 100 Nasal Cannula 07/18/24 07:37 83 07/18/24 07:07 36.4 C L 81 18 112/67 99 Nasal Cannula 07/18/24 03:39 36.8 C 85 20 107/70 91 Nasal Cannula O2 Flow Rate 11/24/24 11:08 2 07/18/24 07:37 07/18/24 07:07 2 07/18/24 03:39 2 Laboratory Results 07/18/24 05:47 07/18/24 05:47 (2) Sepsis Sepsis acute organ dysfunction status: with acute organ dysfunction Sepsis type: sepsis due to unspecified organism Severe sepsis acute organ dysfunction type: unspecified
[2024-07-18] MEDS: TORSEMIDE 10 MG TAB PO SCH (14:06)
[2024-07-19 06:28] LABS: Hematocrit (blood only) 28.7 % (37.0-47.0); Hemoglobin 9.1 g/dl (12.0-16.0); Mean Corpuscular Hemoglobin 30.3 pg (25.0-34.0); Mean Corpuscular Hgb Conc 31.7 g/dL (32.0-36.0); Mean Corpuscular Volume 95.7 fL (80.0-100.0); Mean Platelet Volume 11.7 fL (9.4-12.4); Platelet Count 137 K/uL (130-400); RDW Coefficient of Variation 17.5 % (11.5-14.5); RDW Standard Deviation 61.2 fL (36.4-46.3); White Blood Count 9.61 K/ul (4.8-10.8)
[2024-07-19 06:40] LABS: BUN Creatinine Ratio 31.1 (10-20); Calcium 9.3 mg/dl (8.6-10.3); Phosphorus 3.3 mg/dl (2.5-4.9); Potassium 3.9 mmol/L (3.5-5.1)
--- NOTE | 2024-07-19 07:31 | Hospitalist Progress Note ---
Date of Service July 19, 2024 Assessment & Plan (1) Acute UTI: (2) Sepsis: (3) Confusion: (4) Persistent atrial fibrillation with rapid ventricular response: (5) Weakness: (6) Acute respiratory failure: Plan: Patient is 83 year old female with PMH DM II, CKD III, hypothyroidism, polyneuropathy, PVD, HLD, RADHA, moderate persistent asthma, nocturnal hypoxemia, COPD, paroxysmal atrial fibrillation s/p Watchman procedure, sick sinus syndrome s/p pacemaker placement, pulmonary hypertension, chronic diastolic CHF, left carotid artery aneurysm, aortic atherosclerosis, severe tricuspid regurgitation, s/p mitral valve clip for severe mitral regurgitation, GERD, history of TIA and others listed below presented to ER for weakness today. Sepsis Pneumonia Acute hypoxic respiratory failure Metabolic encephalopathy, secondary to above, now resolved COPD/asthma exacerbation UTI Human metapneumovirus Bacteremia, MSSA In ER T: 38.9C, P: 136, R: 25, BP 149/97, 89% on room air up to 94% on 2 L nasal cannula WBC: 19. Lactate WNL. procalcitonin: 0.3 BioFire respiratory panel:+human metapneumovirus UA:3+leuk esterase, 4+bacteria, >50 WBC CXR: Focus of vague groundglass density in the right lung most concerning for pneumonia including viral etiologies. CT head: no acute intracranial findings Urine culture positive for E.coli In ER given 1000mL NSS, cefepime, 1 g Tylenol IV After IVF patient reassessed and HR: 129, R: 20, BP 117/69, 96% on 2 L via nasal cannula. Lungs with diffuse wheezing throughout, irregularly irregular per auscultation, rate 128, brisk capillary refill, patient alert and oriented x 3 Blood cultures - positive for Staph, not MRSA - repeat blood cultx. Pt already on cefepime, follow final cultx results. ID consulted - will obtain TTE Review of patient's allergy list has Keflex and penicillin as allergy. Per chart review patient received cefazolin last month postop. She received cefepime in ER on current admission Cefepime, doxycycline Mucinex, incentive spirometry, Xopenex nebs Supplemental oxygen as needed Given additional IVF on admission hold home torsemide for now CBC, BMP in a.m. WBC normalized Persistent atrial fibrillation with rapid ventricular response Not on anticoagulation secondary to history of GIB in past and is s/p Watchman S/P Watchman Procedure SSS s/p PPM H/O of LV thrombus HR in 130s in ER. Patient without palpitations, SOB, CP and is mentating normally. Suspect secondary to underlying illness and dehydration which treating as above and with IVF. Resume home metoprolol succinate Troponin: 29 Trend troponin 03/21/2024 echo: EF: 55-60%, s/p mitral valve clip, mild mitral regurgitation, moderate mitral stenosis, left atrium severely dilated, moderate-severe tricuspid regurgitation magnesium: 1.8. Will replace to keep at or above 2.0 If uncontrolled consider cardiology consult Continues to be in Afib w/ RVR given IV metoprolol, consulted cardiology - added digoxin, HR now much improved TIFFANY on CKD III Recent TIFFANY with peak creatinine of 3 on 05/28/2024 had trended down to 1.0 on discharge on 06/02/2024 BUN: 43. Cr: 1.4 (was 1.4 on 07/05/2024) IVF Avoid nephrotoxic agents when possible Cr1.77 -> nephrology consulted - initially started torsemide 10 daily -> switch to IV lasix Recent Fall and Right Femur Fracture S/P intertrochanteric nail Currently at [facility] for rehab PT/OT eval Fall precautions Continue fentanyl patch for pain Chronic Diastolic CHF Severe Tricuspid Regurgitation Hx of severe mitral regurg s/p Mitral Clip Noted dry on admission. Will hold home torsemide Monitor volume status Recent postop anemia Hgb: 10.8. Improved from 9.5 on 07/05/2024. Had low of 6.8 on 05/26/2024 and received 2 units PRBC during that hospitalization Continue iron supplement History mild Transaminitis: AST 66, alk phos: 216. Around patient's recent levels RADHA, Nocturnal Hypoxia: Continue baseline 2L O2 HS. DM II Diet-controlled. A1c was 6.9% on 03/24/24 Hypothyroidism: Continue levothyroxine DVT Prophylaxis SCDs PCU DNR/DNI as per discussion with pt Follows with Dr Calvo for routine care Admission and Anticipated Discharge Date Admission Date: July 15, 2024 Subjective Pt seen in follow up of sepsis, UTI, PNA + human metapneumovirus - now also confirmed MSSA bacteremia From [facility] , recent hx of fem. fx Found w/ fever, tachycardia, lethargic -> now afebrile, mental status back to baseline Developed Afib w/ RVR -> Cardiology consulted, added digoxin, HR improved Denies chest pain, shortness of breath, palpitations, abd. pain, n/v Son at the bedside today and updated WBC normalized Cr elevated - nephrology consulted - switched to iv lasix Blood cultx posit for Staph / MSSA - discussed w/ ID --> TTE ordered Review of Systems Review of Systems: All systems reviewed & are unremarkable except as noted in Subjective Physical Exam Physical Exam: General: +ill appearing, no apparent distress, WDWN, elderly F Head: normocephalic, atraumatic Eyes: PERRL, EOM's intact, conjunctiva non-injected, anicteric ENT: normal inspection external ears, nose, mucous membranes dry Neck: supple Lungs: no respiratory distress on suppl. O2 via NC, + rhonchi, +crackles, +whee zing CV: irregularly irregular, no pretibial edema Abd: normal BS, soft, non-tender Ext: moves extremities Neuro: A&O x 3, speech fluent, no facial asymmetry, moves extremities Skin: warm, dry Results & Data Results & Data Vital Signs (Past 12 Hours) Vital Signs Temp Pulse Resp BP Pulse Ox O2 Del Method O2 Flow Rate 07/19/24 04:40 74 16 99 Nasal Cannula 07/19/24 03:09 36.8 C 82 20 123/75 99 Nasal Cannula 2 07/18/24 23:24 36.9 C 96 H 20 122/74 99 Nasal Cannula 2 07/18/24 20:58 82 18 91 Nasal Cannula 3 07/18/24 19:34 36.6 C 80 18 118/68 95 Nasal Cannula 2 Laboratory Results 07/19/24 07/18/24 07/18/24 Range/Units 06:10 20:54 16:55 WBC 9.61 (4.8-10.8) K/ul RBC 3.00 L (4.20-5.40) M/uL Hgb 9.1 L (12.0-16.0) g/dl Hct 28.7 L (37.0-47.0) % MCV 95.7 (80.0-100.0) fL MCH 30.3 (25.0-34.0) pg MCHC 31.7 L (32.0-36.0) g/dL RDW Std Deviation 61.2 H (36.4-46.3) fL RDW Coeff of Francisco Javier 17.5 H (11.5-14.5) % Plt Count 137 (130-400) K/uL MPV 11.7 (9.4-12.4) fL Sodium 138 (136-145) mmol/L Potassium 3.9 (3.5-5.1) mmol/L Chloride 107 (98-107) mmol/L Carbon Dioxide 21 (21-32) mmol/L Anion Gap 10 (3-11) BUN 56 H (6-23) mg/dl Creatinine 1.80 H (0.6-1.2) mg/dl Est Cr Clr Drug Dosing 23.0 ml/min eGFR 27.61 BUN/Creatinine Ratio 31.1 H (10-20) Glucose 110 H (70-99(Fasting)) mg/dl POC Glucose 135 H 121 H (70-99) mg/dl Calcium 9.3 (8.6-10.3) mg/dl Phosphorus 3.3 (2.5-4.9) mg/dl Magnesium 2.0 (1.7-2.4) mg/dl Staphylococcus sp PCR (NotDetected) Staph aureus (PCR) (NotDetected) mecA/C & MREJ Resist Gene (NotDetected) Bld Cult ID Panel PCR (NotDetected) 07/18/24 07/18/24 07/15/24 Range/Units 12:05 08:05 18:26 WBC (4.8-10.8) K/ul RBC (4.20-5.40) M/uL Hgb (12.0-16.0) g/dl Hct (37.0-47.0) % MCV (80.0-100.0) fL MCH (25.0-34.0) pg MCHC (32.0-36.0) g/dL RDW Std Deviation (36.4-46.3) fL RDW Coeff of Francisco Javier (11.5-14.5) % Plt Count (130-400) K/uL MPV (9.4-12.4) fL Sodium (136-145) mmol/L Potassium (3.5-5.1) mmol/L Chloride (98-107) mmol/L Carbon Dioxide (21-32) mmol/L Anion Gap (3-11) BUN (6-23) mg/dl Creatinine (0.6-1.2) mg/dl Est Cr Clr Drug Dosing ml/min eGFR BUN/Creatinine Ratio (10-20) Glucose (70-99(Fasting)) mg/dl POC Glucose 117 H 107 H (70-99) mg/dl Calcium (8.6-10.3) mg/dl Phosphorus (2.5-4.9) mg/dl Magnesium (1.7-2.4) mg/dl Staphylococcus sp PCR DETECTED A (NotDetected) Staph aureus (PCR) DETECTED A (NotDetected) mecA/C & MREJ Resist Gene MRSA Not Detected (NotDetected) Bld Cult ID Panel PCR See PCR Comment (NotDetected) Medications Administered Current Inpatient Medications Acetaminophen (Acetaminophen 325 Mg Tab) 650 mg PO Q4H PRN PRN Reason: Pain or Fever Stop: 08/14/24 21:42 Last Admin: 07/16/24 12:22 Dose: 650 mg Allopurinol (Allopurinol 300 Mg Tab) 300 mg PO HS [facility] Stop: 08/14/24 21:59 Last Admin: 07/18/24 20:48 Dose: 300 mg Aspirin (Aspirin 81 Mg Ectab) 81 mg PO QAM [facility] Stop: 08/15/24 08:59 Last Admin: 07/18/24 10:10 Dose: 81 mg Atorvastatin Calcium (Atorvastatin 20 Mg Tab) 20 mg PO QAM [facility] CES[facility] Stop: 08/15/24 08:59 Last Admin: 07/18/24 10:12 Dose: 20 mg Buspirone HCl (Buspirone 5 Mg Tab) 5 mg PO AMHS [facility] Stop: 08/14/24 21:59 Last Admin: 07/18/24 20:48 Dose: 5 mg Doxycycline Hyclate (Doxycycline Hyclate 100 Mg Cap) 100 mg PO BID [facility] CESAR Stop: 07/21/24 08:59 Last Admin: 07/18/24 20:48 Dose: 100 mg Fentanyl (Fentanyl 12 Mcg/Hr Tdsy) 1 patch TD Q3D [facility] CESAR Stop: 07/31/24 18:59 Last Admin: 07/17/24 20:46 Dose: 1 patch Ferrous Sulfate (Ferrous Sulfate 325 Mg Tab) 325 mg PO 1100 [facility] Stop: 08/15/24 10:59 Last Admin: 07/18/24 11:54 Dose: 325 mg Guaifenesin (Guaifenesin 600 Mg Tabcr) 600 mg PO Q12 [facility]UL[facility] CESAR Stop: 08/14/24 21:59 Last Admin: 07/18/24 20:48 Dose: 600 mg Cefepime HCl (Maxipime 2000mg) 1,000 mg in 10 mls @ 5 mls/min IV Q12H [facility]UL[facility] CESAR Stop: 07/21/24 17:59 Last Admin: 07/19/24 05:55 Dose: 5 mls/min Ipratropium [place] (Ipratropium [place] Nasal [place] 0.06% 15ml) 1 sprays OLVIN DAILY PRN PRN Reason: rhinorrhea Stop: 08/14/24 22:00 Lactobacillus Acidophilus (Advanced Probiotic 625 Mg Capsule) 1,250 mg PO DAILY [facility] Stop: 08/15/24 08:59 Last Admin: 07/18/24 10:11 Dose: 1,250 mg Levalbuterol HCl (Levalbuterol 1.25 Mg/3 Ml Neb) 1.25 mg NEB Q6H PRN PRN Reason: Shortness Of Breath Or Wheezing Stop: 08/14/24 21:42 Last Admin: 07/19/24 04:39 Dose: 1.25 mg Levalbuterol HCl (Levalbuterol 1.25 Mg/3 Ml Neb) 1.25 mg NEB QIDR [facility] Stop: 08/18/24 06:59 Levothyroxine Sodium (Levothyroxine Sodium 175 Mcg Tablet) 175 mcg PO DAILYBB [facility] Stop: 08/15/24 06:29 Last Admin: 07/19/24 05:55 Dose: 175 mcg Melatonin (Melatonin 3 Mg Tab) 6 mg PO HS [facility] Stop: 08/14/24 21:59 Last Admin: 07/18/24 20:47 Dose: 6 mg Metoprolol Succinate (Metoprolol Succ 50mg Ext Rel Tab) 50 mg PO BID [facility] CESAR Stop: 08/15/24 20:59 Last Admin: 07/18/24 20:47 Dose: 50 mg Miscellaneous (Fentanyl Patch Remove & Waste) 1 each N/A Q3D [facility] Stop: 08/16/24 18:59 Last Admin: 07/17/24 20:45 Dose: 1 each Miscellaneous (Check Fentanyl Patch Placement) 1 each N/A QS [facility] CES[facility] Stop: 08/15/24 00:00 Last Admin: 07/19/24 00:55 Dose: 1 each Montelukast Sodium (Montelukast Sodium 10 Mg Tablet) 10 mg PO PM [facility] CESAR Stop: 08/14/24 21:59 Last Admin: 07/18/24 20:48 Dose: 10 mg Ondansetron HCl (Ondansetron Inj 2 Mg/Ml 2 Ml Vial) 4 mg IV Q6H PRN PRN Reason: Nausea Stop: 08/14/24 21:42 Last Admin: 07/16/24 09:39 Dose: 4 mg Pantoprazole Sodium (Pantoprazole 40 Mg Tab) 40 mg PO AMHS [facility] Stop: 08/14/24 21:59 Last Admin: 07/18/24 20:48 Dose: 40 mg Polyethylene Glycol (Polyethylene (Miralax) 17 Gm Pack) 17 gm PO DAILY PRN PRN Reason: Constipation Stop: 08/14/24 21:42 Sertraline HCl (Sertraline Hcl 100 Mg Tablet) 150 mg PO QAM [facility] Stop: 08/15/24 08:59 Last Admin: 07/18/24 10:13 Dose: 150 mg Sodium Chloride (Sodium Chlor 7% 4 Ml Neb) 4 ml NEB BIDR [facility] Stop: 08/18/24 06:59 Torsemide (Torsemide 10 Mg Tab) 10 mg PO QAM [facility] Stop: 08/17/24 13:19 Last Admin: 07/18/24 14:06 Dose: 10 mg Umeclidinium/Vilanterol (Umeclidinium/Vilanterol 62.5/25mcg 7 Puffs/Inhaler) 1 puffs INH DAILY [facility] Stop: 08/15/24 08:59 Last Admin: 07/18/24 10:16 Dose: 1 puffs Vitamin D (Cholecalciferol 25 Mcg (1000 Units) Tab) 100 mcg PO QAM [facility] Stop: 08/15/24 08:59 Last Admin: 07/18/24 10:09 Dose: 100 mcg (2) Sepsis Sepsis acute organ dysfunction status: with acute organ dysfunction Sepsis type: sepsis due to unspecified organism Severe sepsis acute organ dysfunction type: unspecified
[2024-07-19] MEDS: LEVALBUTEROL 1.25 MG/3 ML NEB NEB SCH (07:32)
[2024-07-19] MEDS: SODIUM CHLOR 7% 4 ML NEB NEB SCH (07:32)
--- NOTE | 2024-07-19 08:29 | XRay Report ---
EXAM: XR chest 1V portable CLINICAL HISTORY: wheezings [email or web address] TECHNIQUE: An X-ray image of the chest is obtained using an AP projection. COMPARISON: 07/15/24 previous X-ray. FINDINGS: Pulmonary Parenchyma: Prominent vascular and bronchial markings bilaterally with peribronchial thickening and perihilar opacity. No pulmonary nodules are identified. Obliterated left costophrenic angle of likely effusion. No right evidence of pleural effusion or pleural thickening. Heart and Mediastinum: Enlarged cardiac size, No mediastinal widening or masses. Perihilar vessel enlargement. No hilar or mediastinal lymphadenopathy. Bony Thorax: The bony thorax appears intact without fractures or deformities. Dorsal spine degenerative changes. Soft Tissues: Soft tissues overlying the chest wall are unremarkable. A double leads intracardiac device is seen in the left hemithorax with electrodes placed over the right cardiac chambers. Cardiac monitoring electrodes are seen overlaying the thorax. IMPRESSION: 1. Pulmonary congestion with peribronchial thickening and Cardiomegaly, stable. 2. Mild left pleural effusion, new finding. Electronically signed by Randee Hobbs 07-19-2024 08:29 AM
[2024-07-19] MEDS: FUROSEMIDE INJ 20 MG/2 ML VIAL IV ONE (10:09)
--- NOTE | 2024-07-19 11:46 | Nephrology Progress Note ---
Date of Service July 19, 2024 Assessment & Plan Admission and Anticipated Discharge Date Admission Date: July 15, 2024 Subjective Assessment & Plan (1) Acute kidney injury superimposed on stage 3b chronic kidney disease: Baseline creatinine is in early to mid1.0's, this was 1.4 on admission gradually risen to 1.8 today.She was found to be in AF and has been hypotensive. Decline in Renal functions sec to hemodynamic instability in the setting of bacteremia. MSSA bacteremia always causes some rise in creat. has fluid overload and needs to be diuresed for resp Symptoms and resp failure. D/c Po torsemide and give lasix 40 iv bid. also give po kcl 20 bid to cover the lasix Daily renal panel to monitor electrolytes and renal fucntion. Also needs Daily CBC with TIFFANY and Infection and Anti plt agents. hgb today 9.1 and WBC trending down Daily weight w/ Input and output (2) Sepsis: likely source was Urine and chest ( Metapneumavirus) - She is now Also growing MSSA in blood. On cefepime and Doxy currently. Pending ID consult for ABx recommendation. - Renally dose Antibiotics WBC trending down and sepsis is getting better. (3) Diastolic congestive heart failure: D/c Po torsemide and give lasix 40 iv bid. (4) Acute respiratory failure: 2/ Metapneumovirus, (5) Persistent atrial fibrillation with rapid ventricular response: Now controlled (6) S/P mitral valve clip implantation: S--Feels like everything is better. Still weak and frail and needing o2. Physical Exam Physical Exam: General: +ill appearing, no apparent distress, elderly F Head: normocephalic, atraumatic Eyes: PERRL, EOM's intact, conjunctiva non-injected, anicteric ENT: normal inspection external ears, nose, mucous membranes dry Neck: supple Lungs: no respiratory distress on suppl. O2 via NC, + rhonchi, +crackles, +wheezing CV: irregularly irregular, no pretibial edema Abd: normal BS, soft, non-tender Ext: moves extremities Neuro: A&O x 3, speech fluent, no facial asymmetry, moves extremities Skin: warm, dry Results & Data Vital Signs (Past 12 Hours) Vital Signs Temp Pulse Pulse Resp BP Pulse Ox O2 Del Method 07/19/24 10:57 81 18 95 Nasal Cannula 07/19/24 10:27 36.4 C L 83 18 129/76 97 Nasal Cannula 07/19/24 10:25 Nasal Cannula 07/19/24 07:44 36.4 C L 80 18 123/69 96 Nasal Cannula 07/19/24 07:35 80 07/19/24 07:33 77 18 96 Nasal Cannula 07/19/24 04:40 74 16 99 Nasal Cannula 07/19/24 03:09 36.8 C 82 20 123/75 99 Nasal Cannula O2 Flow Rate 07/19/24 10:57 2 07/19/24 10:27 2 07/19/24 10:25 2 07/19/24 07:44 2 07/19/24 07:35 07/19/24 07:33 2 07/19/24 04:40 07/19/24 03:09 2
[2024-07-19] MEDS: POTASSIUM CHLORIDE 20 MEQ/15 ML UDC PO SCH (12:40)
--- NOTE | 2024-07-19 16:59 | Infectious Disease Consult ---
Date of Service July 19, 2024 Telehealth Information I performed this visit using a real-time telehealth connection between my location and the patients location ([facility]). After connecting through interactive tele-video, patient was identified by name and date of and/or wristband check.Patient (or authorized healthcare desk representative) was informed that this was a telemedicine visit and it was being conducted confidentially over secure lines. My office door was closed and no one else was present in the room with me.Patient (or authorized healthcare desk representative) provided consent to proceed with the visit, expressed an understanding of privacy and security of the telemedicine visit, and gave permission to have a hospital desk representative in the room in order to assist with the visit and to conduct portions of the visit, as needed. I informed the patient (or authorized healthcare desk representative) that I reviewed their record and presented the opportunity for them to ask any questions regarding the visit today. The patient agreed to participate. Assessment & Plan (1) MSSA bacteremia: (2) Complicated UTI (urinary tract infection): (3) Infection due to human metapneumovirus (hMPV): (4) Acute encephalopathy: (5) Acute hypoxic respiratory failure: (6) Acute kidney injury superimposed on stage 3b chronic kidney disease: Plan I would have preferred IV cefazolin given that blood culture is growing MSSA and urine culture is positive for E coli sensitive to cefazolin. However, since the patient has allergy to penicillin and Keflex in the past, I would recommend keeping on IV cefepime for now. I would recommend stopping doxycycline. We will aim to treat complicated UTI for a total of 10 days (with plan to step- down to oral antibiotic on discharge). As for the MSSA bacteremia, there is no obvious potential source at this point. Since she recently had right femoral fracture, I would recommend performing a thorough examination of the surgical site to investigate for any surgical site infection. If not done yet, please obtain a transthoracic echo to investigate for endocarditis. Continue to send for blood culture every 48 hours until negative. History of Present Illness History of Present Illness Ms. Barakat is a 83-year-old woman with medical history of type 2 diabetes, HTN, chronic diastolic congestive heart failure, severe tricuspid regurgitation, severe mitral valve regurgitation status post clipping in February 2023, history of CKD stage 3, history of PVD, history of COPD/asthma, history of paroxysmal AFib status post Watchman procedure and history of sick sinus syndrome status post pacemaker placement who was admitted to [facility] on 07/[address] being transferred from her rehab because of acute encephalopathy and generalized weakness. On presentation, she was found to be febrile at 38.9, tachycardic at 136 with AFib in RVR, tachypneic with SpO2 89% and requiring 2 L of oxygen via nasal cannula. Initial workup showed leukocytosis of 19 (ANC 16.8), elevated creatinine suggesting TIFFANY on top of CKD, pyuria with more than 50 WBC in urine and 4+ bacteriuria, and respiratory viral panel positive for human metapneumovirus. Shortly after admission, 2 sets of blood culture came back positive for MSSA. ID team was consulted for further recommendations and to help guide antibiotic treatment. Allergies Allergy/AdvReac Type Severity Reaction Status Date / Time Sulfa (Sulfonamide Allergy Severe Severe Verified 04/13/24 00:16 Antibiotics) rxn: rash and hives celecoxib Allergy Intermediate Rash/Hives/ Verified 04/13/24 00:16 Itching. cephalexin Allergy Intermediate Rash/Hives/ Verified 04/13/24 00:16 Itching. furosemide Allergy Intermediate Rash/Hives/ Verified 04/13/24 00:16 Itching. gabapentin Allergy Intermediate Rash/Hives/ Verified 04/13/24 00:16 Itching. pregabalin Allergy Intermediate Rash/Hives/ Verified 04/13/24 00:16 Itching. meclizine Allergy Unknown Unknown Verified 04/13/24 00:16 methylprednisolone Allergy Unknown Rash/Hives/ Verified 04/13/24 00:16 Itching. Penicillins Allergy Unknown Unknown. Verified 04/13/24 00:16 prednisone Allergy Unknown Rash/Hives/ Verified 04/13/24 00:16 Itching. vancomycin Allergy Unknown Jodi Verified 04/13/24 00:16 syn. . nickel Allergy Unknown Verified 04/13/24 00:16 dexamethasone AdvReac Intermediate Steroid Verified 04/13/24 00:16 psychosis. Home Medications Medication Instructions Recorded Confirmed Type montelukast 10 mg tablet 10 mg PO PM 04/08/19 07/15/24 History atorvastatin 20 mg tablet 20 mg PO QAM 11/26/21 07/15/24 History cholecalciferol (vitamin D3) 50 100 mcg PO QAM 11/26/21 07/15/24 History mcg (2,000 unit) capsule (Vitamin D3) levalbuterol tartrate 45 1 puff inhalation Q4H PRN 08/07/22 07/15/24 History mcg/actuation aerosol inhaler Shortness Of Breath Or Wheezing (Xopenex HFA) ipratropium bromide 21 mcg (0.03 2 spray intranasal DAILY PRN 12/06/22 07/15/24 History %) nasal spray rhinorrhea allopurinol 300 mg tablet 300 mg PO HS 08/14/23 07/15/24 History levothyroxine 175 mcg tablet 175 mcg PO DAILYBB 03/21/24 07/15/24 History fentanyl 12 mcg/hr transdermal 12 mcg transdermal Q3D 03/23/24 07/15/24 History patch benzonatate 100 mg capsule 100 mg PO Q6H PRN cough #20 caps 04/15/24 07/15/24 Rx guaifenesin 600 mg tablet, 600 mg PO Q12 PRN cough #20 tabs 04/15/24 07/15/24 Rx extended release 12 hr (Mucinex) buspirone 5 mg tablet 5 mg PO AMHS 05/13/24 07/15/24 History acetaminophen 500 mg tablet 500 mg PO Q8 PRN Fever Or Pain 07/15/24 07/15/24 History aspirin 81 mg tablet,delayed 81 mg PO QAM 07/15/24 07/15/24 History release ferrous sulfate 325 mg (65 mg 325 mg PO QAM 07/15/24 07/15/24 History iron) tablet,delayed release glycopyrrolate 9 mcg-formoterol 2 puff inhalation BID 07/15/24 07/15/24 History 4.8 mcg HFA aerosol inhaler (Bevespi Aerosphere) melatonin 5 mg tablet 5 mg PO HS 07/15/24 07/15/24 History metoprolol succinate 25 mg 25 mg PO HS 07/15/24 07/15/24 History tablet,extended release 24 hr metoprolol succinate 25 mg 37.5 mg PO QAM 07/15/24 07/15/24 History tablet,extended release 24 hr oxycodone 5 mg tablet 5 mg PO Q6H PRN Severe Pain (Scale 07/15/24 07/15/24 History Score 7-10) pantoprazole 40 mg tablet,delayed 40 mg PO AMHS 07/15/24 07/15/24 History release potassium chloride 10 mEq 10 meq PO BID 07/15/24 07/15/24 History tablet,extended release sertraline 150 mg capsule 150 mg PO QAM 07/15/24 07/15/24 History torsemide 10 mg tablet 20 mg PO DAILY 07/15/24 07/15/24 History Patient History Medical History Generalized weakness Pericardial effusion Low back pain Angio-edema Nausea Leukocytosis Near syncope Hypotension Dehydration TIFFANY (acute kidney injury) Near syncope Elevated brain natriuretic peptide (BNP) level Pneumonia Atrial flutter Carotid artery aneurysm Prolonged QT interval Atrial fibrillation with RVR DM type 2 (diabetes mellitus, type 2) Encounter for pre-operative examination Cholelithiasis Cholecystitis Chest pain at rest Pulmonary emphysema Osteoarthritis of right knee HTN (hypertension) Surgical History History of hysterectomy History of cholecystectomy Family History Father Diabetes Social History Smoking Status: Former smoker Tobacco Type: Cigarettes packs per day: 1.5; Cigarettes Per Day: 30; Second Hand Exposure: No; Do You Dip or Chew Tobacco: No; Hx Alcohol Use: No Hx Substance Use: No Preferred Language: Hebrew Communication Ability: Impaired Cement Handler Required: No Beliefs That Will Affect Care: None marital status: Current Living Situation: Prison Feels Safe at Home: Yes Assistive Devices: Walker Review of Systems Negative except for what was mentioned in the H&P Physical Exam Could not be performed as the visit was conducted via TeleMed Results & Data Vital Signs (Past 12 Hours) Vital Signs Temp Pulse Pulse Resp BP Pulse Ox O2 Del Method 07/19/24 16:24 36.7 C 91 H 19 125/75 96 Room Air 07/19/24 15:23 81 23 100 Nasal Cannula 07/19/24 14:21 87 07/19/24 10:57 81 18 95 Nasal Cannula 07/19/24 10:27 36.4 C L 83 18 129/76 97 Nasal Cannula 07/19/24 10:25 Nasal Cannula 07/19/24 07:44 36.4 C L 80 18 123/69 96 Nasal Cannula 07/19/24 07:35 80 07/19/24 07:33 77 18 96 Nasal Cannula O2 Flow Rate 07/19/24 16:24 07/19/24 15:23 2 07/19/24 14:21 07/19/24 10:57 2 07/19/24 10:27 2 07/19/24 10:25 2 07/19/24 07:44 2 07/19/24 07:35 07/19/24 07:33 2 Laboratory Results Microbiology: 07/15: 2/4 bottles of blood culture positive for MSSA 07/15: Urine culture positive for E coli 07/18: 2 sets of blood culture negative to date
[2024-07-19] MEDS: FUROSEMIDE 40 MG/4 ML VIAL IV SCH (18:24)
[2024-07-20 06:28] LABS: Hematocrit (blood only) 28.3 % (37.0-47.0); Hemoglobin 9.4 g/dl (12.0-16.0); Mean Corpuscular Hemoglobin 30.6 pg (25.0-34.0); Mean Corpuscular Hgb Conc 33.2 g/dL (32.0-36.0); Mean Corpuscular Volume 92.2 fL (80.0-100.0); Mean Platelet Volume 11.9 fL (9.4-12.4); Platelet Count 142 K/uL (130-400); RDW Coefficient of Variation 17.3 % (11.5-14.5); RDW Standard Deviation 58.4 fL (36.4-46.3); Red Blood Count 3.07 M/uL (4.20-5.40); White Blood Count 10.46 K/ul (4.8-10.8)
[2024-07-20 06:48] LABS: BUN Creatinine Ratio 34.8 (10-20); Calcium 9.3 mg/dl (8.6-10.3); Creatinine Clr Calc Pharmacy 26.2 ml/min; Magnesium 1.8 mg/dl (1.7-2.4); Phosphorus 2.6 mg/dl (2.5-4.9); Potassium 3.5 mmol/L (3.5-5.1)
--- NOTE | 2024-07-20 08:24 | Hospitalist Progress Note ---
Date of Service July 20, 2024 Assessment & Plan (1) Acute UTI: (2) Sepsis: (3) Confusion: (4) Persistent atrial fibrillation with rapid ventricular response: (5) Weakness: (6) Acute respiratory failure: Plan: Patient is 83 year old female with PMH DM II, CKD III, hypothyroidism, polyneuropathy, PVD, HLD, RADHA, moderate persistent asthma, nocturnal hypoxemia, COPD, paroxysmal atrial fibrillation s/p Watchman procedure, sick sinus syndrome s/p pacemaker placement, pulmonary hypertension, chronic diastolic CHF, left carotid artery aneurysm, aortic atherosclerosis, severe tricuspid regurgitation, s/p mitral valve clip for severe mitral regurgitation, GERD, history of TIA and others listed below presented to ER for weakness today. Sepsis Pneumonia Acute hypoxic respiratory failure Metabolic encephalopathy, secondary to above, now resolved COPD/asthma exacerbation UTI Human metapneumovirus Bacteremia, MSSA In ER T: 38.9C, P: 136, R: 25, BP 149/97, 89% on room air up to 94% on 2 L nasal cannula WBC: 19. Lactate WNL. procalcitonin: 0.3 BioFire respiratory panel:+human metapneumovirus UA:3+leuk esterase, 4+bacteria, >50 WBC CXR: Focus of vague groundglass density in the right lung most concerning for pneumonia including viral etiologies. CT head: no acute intracranial findings Urine culture positive for E.coli In ER given 1000mL NSS, cefepime, 1 g Tylenol IV After IVF patient reassessed and HR: 129, R: 20, BP 117/69, 96% on 2 L via nasal cannula. Lungs with diffuse wheezing throughout, irregularly irregular per auscultation, rate 128, brisk capillary refill, patient alert and oriented x 3 Blood cultures - positive for Staph, not MRSA - repeat blood cultx so far negative. Pt already on cefepime, follow final cultx results. ID consulted - obtained TTE - no vegetations seen. Review of patient's allergy list has Keflex and penicillin as allergy. Per chart review patient received cefazolin last month postop. She received cefepime in ER on current admission Cefepime, doxycycline Mucinex, incentive spirometry, Xopenex nebs Supplemental oxygen as needed Given additional IVF on admission hold home torsemide for now CBC, BMP in a.m. WBC normalized Persistent atrial fibrillation with rapid ventricular response Not on anticoagulation secondary to history of GIB in past and is s/p Watchman S/P Watchman Procedure SSS s/p PPM H/O of LV thrombus HR in 130s in ER. Patient without palpitations, SOB, CP and is mentating normally. Suspect secondary to underlying illness and dehydration which treating as above and with IVF. Resume home metoprolol succinate Troponin: 29 Trend troponin 03/21/2024 echo: EF: 55-60%, s/p mitral valve clip, mild mitral regurgitation, moderate mitral stenosis, left atrium severely dilated, moderate-severe tricuspid regurgitation magnesium: 1.8. Will replace to keep at or above 2.0 If uncontrolled consider cardiology consult Continued to be in Afib w/ RVR given IV metoprolol, consulted cardiology - added digoxin, HR now much improved TIFFANY on CKD III Recent TIFFANY with peak creatinine of 3 on 05/28/2024 had trended down to 1.0 on discharge on 06/02/2024 BUN: 43. Cr: 1.4 (was 1.4 on 07/05/2024) IVF Avoid nephrotoxic agents when possible Cr1.77 -> nephrology consulted - initially started torsemide 10 daily -> switched to IV lasix Recent Fall and Right Femur Fracture S/P intertrochanteric nail Currently at [facility] for rehab PT/OT eval Fall precautions Continue fentanyl patch for pain Chronic Diastolic CHF Severe Tricuspid Regurgitation Hx of severe mitral regurg s/p Mitral Clip Noted dry on admission. Will hold home torsemide Monitor volume status Recent postop anemia Hgb: 10.8. Improved from 9.5 on 07/05/2024. Had low of 6.8 on 05/26/2024 and received 2 units PRBC during that hospitalization Continue iron supplement History mild Transaminitis: AST 66, alk phos: 216. Around patient's recent levels RADHA, Nocturnal Hypoxia: Continue baseline 2L O2 HS. DM II Diet-controlled. A1c was 6.9% on 03/24/24 Hypothyroidism: Continue levothyroxine DVT Prophylaxis SCDs PCU DNR/DNI as per discussion with pt Follows with Dr Calvo for routine care Admission and Anticipated Discharge Date Admission Date: July 15, 2024 Subjective Pt seen in follow up of sepsis, UTI, PNA + human metapneumovirus - now also confirmed MSSA bacteremia From [facility] , recent hx of fem. fx Found w/ fever, tachycardia, lethargic -> now afebrile, mental status back to baseline Developed Afib w/ RVR -> Cardiology consulted, added digoxin, HR improved Denies chest pain, shortness of breath, palpitations, abd. pain, n/v Family at bedside and updated WBC normalized Cr elevated - nephrology consulted - switched to iv lasix Blood cultx posit for Staph / MSSA - discussed w/ ID --> TTE obtained - does not show vegetations Review of Systems Review of Systems: All systems reviewed & are unremarkable except as noted in Subjective Physical Exam Physical Exam: General: +ill appearing, no apparent distress, WDWN, elderly F Head: normocephalic, atraumatic Eyes: PERRL, EOM's intact, conjunctiva non-injected, anicteric ENT: normal inspection external ears, nose, mucous membranes dry Neck: supple Lungs: no respiratory distress on suppl. O2 via NC, + rhonchi, +crackles (improved) CV: irregularly irregular, no pretibial edema Abd: normal BS, soft, non-tender Ext: moves extremities, well healed surg. scar of R hip, no erythema, edema, or tenderness at the site Neuro: A&O x 3, speech fluent, no facial asymmetry, moves extremities Skin: warm, dry Results & Data Results & Data Vital Signs (Past 12 Hours) Vital Signs Temp Pulse Pulse Pulse Resp BP BP 07/20/24 07:57 36.7 C 83 18 132/76 07/20/24 07:33 81 20 07/20/24 07:18 86 07/20/24 03:12 37.0 C 78 20 126/73 07/20/24 00:28 07/19/24 23:00 98 H 07/19/24 22:45 36.4 C L 92 H 18 117/66 Pulse Ox O2 Del Method 07/20/24 07:57 100 Room Air 07/20/24 07:33 93 Room Air 07/20/24 07:18 07/20/24 03:12 92 Room Air 07/20/24 00:28 Room Air 07/19/24 23:00 07/19/24 22:45 95 Room Air Laboratory Results 07/20/24 07/20/24 07/19/24 Range/Units 07:55 06:02 20:23 WBC 10.46 (4.8-10.8) K/ul RBC 3.07 L (4.20-5.40) M/uL Hgb 9.4 L (12.0-16.0) g/dl Hct 28.3 L (37.0-47.0) % MCV 92.2 (80.0-100.0) fL MCH 30.6 (25.0-34.0) pg MCHC 33.2 (32.0-36.0) g/dL RDW Std Deviation 58.4 H (36.4-46.3) fL RDW Coeff of Francisco Javier 17.3 H (11.5-14.5) % Plt Count 142 (130-400) K/uL MPV 11.9 (9.4-12.4) fL Sodium 139 (136-145) mmol/L Potassium 3.5 (3.5-5.1) mmol/L Chloride 106 (98-107) mmol/L Carbon Dioxide 22 (21-32) mmol/L Anion Gap 11 (3-11) BUN 55 H (6-23) mg/dl Creatinine 1.58 H (0.6-1.2) mg/dl Est Cr Clr Drug Dosing 26.2 ml/min eGFR 32.29 BUN/Creatinine Ratio 34.8 H (10-20) Glucose 116 H (70-99(Fasting)) mg/dl POC Glucose 112 H 147 H (70-99) mg/dl Calcium 9.3 (8.6-10.3) mg/dl Phosphorus 2.6 (2.5-4.9) mg/dl Magnesium 1.8 (1.7-2.4) mg/dl 07/19/24 07/19/24 Range/Units 17:02 11:56 WBC (4.8-10.8) K/ul RBC (4.20-5.40) M/uL Hgb (12.0-16.0) g/dl Hct (37.0-47.0) % MCV (80.0-100.0) fL MCH (25.0-34.0) pg MCHC (32.0-36.0) g/dL RDW Std Deviation (36.4-46.3) fL RDW Coeff of Francisco Javier (11.5-14.5) % Plt Count (130-400) K/uL MPV (9.4-12.4) fL Sodium (136-145) mmol/L Potassium (3.5-5.1) mmol/L Chloride (98-107) mmol/L Carbon Dioxide (21-32) mmol/L Anion Gap (3-11) BUN (6-23) mg/dl Creatinine (0.6-1.2) mg/dl Est Cr Clr Drug Dosing ml/min eGFR BUN/Creatinine Ratio (10-20) Glucose (70-99(Fasting)) mg/dl POC Glucose 170 H 128 H (70-99) mg/dl Calcium (8.6-10.3) mg/dl Phosphorus (2.5-4.9) mg/dl Magnesium (1.7-2.4) mg/dl Medications Administered Current Inpatient Medications Acetaminophen (Acetaminophen 325 Mg Tab) 650 mg PO Q4H PRN PRN Reason: Pain or Fever Stop: 08/14/24 21:42 Last Admin: 07/16/24 12:22 Dose: 650 mg Allopurinol (Allopurinol 300 Mg Tab) 300 mg PO HS [facility] Stop: 08/14/24 21:59 Last Admin: 07/19/24 23:22 Dose: 300 mg Aspirin (Aspirin 81 Mg Ectab) 81 mg PO QAM JULIO CESAR Stop: 08/15/24 08:59 Last Admin: 07/19/24 08:09 Dose: 81 mg Atorvastatin Calcium (Atorvastatin 20 Mg Tab) 20 mg PO QAM JULIO CESAR Stop: 08/15/24 08:59 Last Admin: 07/19/24 08:10 Dose: 20 mg Buspirone HCl (Buspirone 5 Mg Tab) 5 mg PO AMHS [facility] Stop: 08/14/24 21:59 Last Admin: 07/19/24 23:23 Dose: 5 mg Doxycycline Hyclate (Doxycycline Hyclate 100 Mg Cap) 100 mg PO BID JULIO CESAR Stop: 07/21/24 08:59 Last Admin: 07/19/24 23:22 Dose: 100 mg Fentanyl (Fentanyl 12 Mcg/Hr Tdsy) 1 patch TD Q3D JULIO CESAR Stop: 07/31/24 18:59 Last Admin: 07/17/24 20:46 Dose: 1 patch Ferrous Sulfate (Ferrous Sulfate 325 Mg Tab) 325 mg PO 1100 [facility] Stop: 08/15/24 10:59 Last Admin: 07/19/24 08:10 Dose: 325 mg Furosemide (Furosemide 40 Mg/4 Ml Vial) 40 mg IV [id number] JULIO CESAR Stop: 08/18/24 16:59 Last Admin: 07/19/24 18:24 Dose: 40 mg Guaifenesin (Guaifenesin 600 Mg Tabcr) 600 mg PO Q12 JULIO CESAR Stop: 08/14/24 21:59 Last Admin: 07/19/24 23:23 Dose: 600 mg Cefepime HCl (Maxipime 2000mg) 1,000 mg in 10 mls @ 5 mls/min IV Q12H JULIO CESAR Stop: 07/21/24 17:59 Last Admin: 07/20/24 06:29 Dose: 5 mls/min Ipratropium [place] (Ipratropium [place] Nasal [place] 0.06% 15ml) 1 sprays OLVIN DAILY PRN PRN Reason: rhinorrhea Stop: 08/14/24 22:00 Lactobacillus Acidophilus (Advanced Probiotic 625 Mg Capsule) 1,250 mg PO DAILY JULIO CESAR Stop: 08/15/24 08:59 Last Admin: 07/19/24 08:12 Dose: 1,250 mg Levalbuterol HCl (Levalbuterol 1.25 Mg/3 Ml Neb) 1.25 mg NEB Q6H PRN PRN Reason: Shortness Of Breath Or Wheezing Stop: 08/14/24 21:42 Last Admin: 07/19/24 04:39 Dose: 1.25 mg Levalbuterol HCl (Levalbuterol 1.25 Mg/3 Ml Neb) 1.25 mg NEB QIDR JULIO CESAR Stop: 08/18/24 06:59 Last Admin: 07/20/24 07:33 Dose: 1.25 mg Levothyroxine Sodium (Levothyroxine Sodium 175 Mcg Tablet) 175 mcg PO DAILYBB JULIO CESAR Stop: 08/15/24 06:29 Last Admin: 07/20/24 06:30 Dose: 175 mcg Melatonin (Melatonin 3 Mg Tab) 6 mg PO HS [facility] Stop: 08/14/24 21:59 Last Admin: 07/19/24 23:23 Dose: 6 mg Metoprolol Succinate (Metoprolol Succ 50mg Ext Rel Tab) 50 mg PO BID JULIO CESAR Stop: 08/15/24 20:59 Last Admin: 07/19/24 23:23 Dose: 50 mg Miscellaneous (Fentanyl Patch Remove & Waste) 1 each N/A Q3D JULIO CESAR Stop: 08/16/24 18:59 Last Admin: 07/17/24 20:45 Dose: 1 each Miscellaneous (Check Fentanyl Patch Placement) 1 each N/A QS JULIO CESAR Stop: 08/15/24 00:00 Last Admin: 07/20/24 00:00 Dose: Not Given Montelukast Sodium (Montelukast Sodium 10 Mg Tablet) 10 mg PO PM JULIO CESAR Stop: 08/14/24 21:59 Last Admin: 07/19/24 23:23 Dose: 10 mg Ondansetron HCl (Ondansetron Inj 2 Mg/Ml 2 Ml Vial) 4 mg IV Q6H PRN PRN Reason: Nausea Stop: 08/14/24 21:42 Last Admin: 07/16/24 09:39 Dose: 4 mg Pantoprazole Sodium (Pantoprazole 40 Mg Tab) 40 mg PO AMHS JULIO CESAR Stop: 08/14/24 21:59 Last Admin: 07/19/24 23:23 Dose: 40 mg Polyethylene Glycol (Polyethylene (Miralax) 17 Gm Pack) 17 gm PO DAILY PRN PRN Reason: Constipation Stop: 08/14/24 21:42 Potassium Chloride (Potassium Chloride 20 Meq/15 Ml Udc) 20 meq PO BID JULIO CESAR Stop: 08/18/24 11:59 Last Admin: 07/19/24 23:23 Dose: 20 meq Sertraline HCl (Sertraline Hcl 100 Mg Tablet) 150 mg PO QAM JULIO CESAR Stop: 08/15/24 08:59 Last Admin: 07/19/24 08:09 Dose: 150 mg Sodium Chloride (Sodium Chlor 7% 4 Ml Neb) 4 ml NEB BIDR JULIO CESAR Stop: 08/18/24 06:59 Last Admin: 07/20/24 07:33 Dose: Not Given Umeclidinium/Vilanterol (Umeclidinium/Vilanterol 62.5/25mcg 7 Puffs/Inhaler) 1 puffs INH DAILY JULIO CESAR Stop: 08/15/24 08:59 Last Admin: 07/19/24 08:10 Dose: 1 puffs Vitamin D (Cholecalciferol 25 Mcg (1000 Units) Tab) 100 mcg PO QAM JULIO CESAR Stop: 08/15/24 08:59 Last Admin: 07/19/24 08:11 Dose: 100 mcg (2) Sepsis Sepsis acute organ dysfunction status: with acute organ dysfunction Sepsis type: sepsis due to unspecified organism Severe sepsis acute organ dysfunction type: unspecified
[2024-07-20] MEDS: POTASSIUM CHLORIDE CRTAB 20 MEQ TABCR PO SCH (09:42)
--- NOTE | 2024-07-20 10:53 | Nephrology Progress Note ---
Date of Service July 20, 2024 Assessment & Plan Admission and Anticipated Discharge Date Admission Date: July 15, 2024 Subjective Assessment & Plan (1) Acute kidney injury superimposed on stage 3b chronic kidney disease: Baseline creatinine is in early to mid1.0's, this was 1.4 on admission gradually risen to 1.8 today.She was found to be in AF and has been hypotensive. Decline in Renal functions sec to hemodynamic instability in the setting of bacteremia. MSSA bacteremia always causes some rise in creat. has fluid overload and needs to be diuresed for resp Symptoms and resp failure. D/c Po torsemide and continue lasix 40 iv bid. Creat got better today and tredning down depite iv lasix. also continue po kcl 20 bid to cover the lasix Daily renal panel to monitor electrolytes and renal fucntion. Also needs Daily CBC with TIFFANY and Infection and Anti plt agents. hgb today 9.4 and WBC trending down Daily weight w/ Input and output (2) Sepsis: likely source was Urine and chest ( Metapneumavirus) - She is now Also growing MSSA in blood. On cefepime and Doxy currently. reviewed ID consult for ABx recommendation. - Renally dose Antibiotics WBC trending down and sepsis is getting better. ECHO did not show endocarditics but shows that we need to continue Diuresis (3) Diastolic congestive heart failure: D/c Po torsemide and continue lasix 40 iv bid. Also will need a higher baseline diuretics dose for output (4) Acute respiratory failure: 2/ Metapneumovirus, (5) Persistent atrial fibrillation with rapid ventricular response: Now controlled (6) S/P mitral valve clip implantation: S--Feels like everything is better. Still weak and frail and needing o2. made more urine with iv lasix. ECHO done yesterday Physical Exam Physical Exam: General: +ill appearing, no apparent distress, elderly F Head: normocephalic, atraumatic Eyes: PERRL, EOM's intact, conjunctiva non-injected, anicteric ENT: normal inspection external ears, nose, mucous membranes dry Neck: supple Lungs: no respiratory distress on suppl. O2 via NC, + rhonchi, +crackles, +wheezing CV: irregularly irregular, no pretibial edema Abd: normal BS, soft, non-tender Ext: moves extremities Neuro: A&O x 3, speech fluent, no facial asymmetry, moves extremities Skin: warm, dry Results & Data Vital Signs (Past 12 Hours) Vital Signs Temp Pulse Pulse Pulse Resp BP BP 07/20/24 08:00 07/20/24 07:57 36.7 C 83 18 132/76 07/20/24 07:33 81 20 07/20/24 07:18 86 07/20/24 03:12 37.0 C 78 20 126/73 07/20/24 00:28 07/19/24 23:00 98 H Pulse Ox O2 Del Method 07/20/24 08:00 Room Air 07/20/24 07:57 100 Room Air 07/20/24 07:33 93 Room Air 07/20/24 07:18 07/20/24 03:12 92 Room Air 07/20/24 00:28 Room Air 07/19/24 23:00
[2024-07-21 07:18] LABS: Hematocrit (blood only) 27.5 % (37.0-47.0); Hemoglobin 9.4 g/dl (12.0-16.0); Mean Corpuscular Hgb Conc 34.2 g/dL (32.0-36.0); Mean Corpuscular Volume 90.8 fL (80.0-100.0); Mean Platelet Volume 11.8 fL (9.4-12.4); Platelet Count 152 K/uL (130-400); RDW Coefficient of Variation 17.2 % (11.5-14.5); RDW Standard Deviation 57.2 fL (36.4-46.3); Red Blood Count 3.03 M/uL (4.20-5.40); White Blood Count 11.77 K/ul (4.8-10.8)
[2024-07-21 07:28] LABS: BUN Creatinine Ratio 35.3 (10-20); Calcium 9.4 mg/dl (8.6-10.3); Creatinine Clr Calc Pharmacy 27.5 ml/min; Magnesium 1.7 mg/dl (1.7-2.4); Phosphorus 2.4 mg/dl (2.5-4.9); Potassium 3.4 mmol/L (3.5-5.1)
--- NOTE | 2024-07-21 09:52 | Nephrology Progress Note ---
Date of Service July 21, 2024 Assessment & Plan Admission and Anticipated Discharge Date Admission Date: July 15, 2024 Subjective Subjective Assessment & Plan (1) Acute kidney injury superimposed on stage 3b chronic kidney disease: Baseline creatinine is in early to mid1.0's, this was 1.4 on admission gradually risen to 1.8 today.She was found to be in AF and has been hypotensive. Decline in Renal functions sec to hemodynamic instability in the setting of bacteremia. MSSA bacteremia always causes some rise in creat. has fluid overload ( + echo findings of Pulm congestion) and needs to be diuresed for resp Symptoms and resp failure. D/c Po torsemide and continue lasix 40 iv bid. Creat got better today and trending down depite iv lasix. K slightly low at 3.4 so raise kcl to 20 tid. Also will need a higher baseline diuretics dose for output given Current ECHO finding. was on torsemide 20 daily. Would use at least 40 daily at discharge and titrate further. Daily renal panel to monitor electrolytes and renal fucntion. Also needs Daily CBC with TIFFANY and Infection and Anti plt agents. hgb today 9.4 and WBC about same as yesterday Daily weight w/ Input and output (2) Sepsis: likely source was Urine and chest ( Metapneumavirus) - She is now Also growing MSSA in blood. On cefepime and Doxy currently. reviewed ID consult for ABx recommendation. - Renally dose Antibiotics WBC trending down and sepsis is getting better. ECHO did not show endocarditics but shows that we need to continue Diuresis (3) Diastolic congestive heart failure: D/c Po torsemide and continue lasix 40 iv bid. Also will need a higher baseline diuretics dose for output (4) Acute respiratory failure: 2/ Metapneumovirus, (5) Persistent atrial fibrillation with rapid ventricular response: Now controlled (6) S/P mitral valve clip implantation: S--Feels like everything is better. Still weak and frail and needing o2. made more urine with iv lasix. Physical Exam Physical Exam: General: +ill appearing, no apparent distress, elderly F Head: normocephalic, atraumatic Eyes: PERRL, EOM's intact, conjunctiva non-injected, anicteric ENT: normal inspection external ears, nose, mucous membranes dry Neck: supple Lungs: no respiratory distress on suppl. O2 via NC, + rhonchi, +crackles, +wheezing CV: irregularly irregular, no pretibial edema Abd: normal BS, soft, non-tender Ext: moves extremities Neuro: A&O x 3, speech fluent, no facial asymmetry, moves extremities Skin: warm, dry Results & Data Vital Signs (Past 12 Hours) Vital Signs Temp Pulse Resp BP Pulse Ox O2 Del Method 07/21/24 07:52 36.5 C 80 19 127/78 93 Room Air 07/21/24 07:10 76 20 91 Room Air 07/21/24 03:15 36.6 C 80 18 115/72 96 Room Air 07/20/24 23:00 Room Air 07/20/24 22:23 36.5 C 89 16 124/74 94 Room Air
--- NOTE | 2024-07-21 12:21 | Hospitalist Progress Note ---
Date of Service July 21, 2024 Assessment & Plan (1) Acute hypoxic respiratory failure: Plan: per previous hospitalist notes with addendum: (1) Acute UTI: (2) Sepsis: (3) Confusion: (4) Persistent atrial fibrillation with rapid ventricular response: (5) Weakness: (6) Acute respiratory failure: Plan: Patient is 83 year old female with PMH DM II, CKD III, hypothyroidism, polyneuropathy, PVD, HLD, RADHA, moderate persistent asthma, nocturnal hypoxemia, COPD, paroxysmal atrial fibrillation s/p Watchman procedure, sick sinus syndrome s/p pacemaker placement, pulmonary hypertension, chronic diastolic CHF, left carotid artery aneurysm, aortic atherosclerosis, severe tricuspid regurgitation, s/p mitral valve clip for severe mitral regurgitation, GERD, history of TIA and others listed below presented to ER for weakness today. Sepsis Pneumonia Human metapneumovirus COPD/asthma exacerbation, Acute hypoxic respiratory failure Metabolic encephalopathy, secondary to above, now resolved UTI Bacteremia, MSSA In ER T: 38.9C, P: 136, R: 25, BP 149/97, 89% on room air up to 94% on 2 L nasal cannula WBC: 19. Lactate WNL. procalcitonin: 0.3 BioFire respiratory panel:+human metapneumovirus UA:3+leuk esterase, 4+bacteria, >50 WBC CXR: Focus of vague groundglass density in the right lung most concerning for pneumonia including viral etiologies. CT head: no acute intracranial findings Urine culture positive for E.coli In ER given 1000mL NSS, cefepime, 1 g Tylenol IV After IVF patient reassessed and HR: 129, R: 20, BP 117/69, 96% on 2 L via nasal cannula. Lungs with diffuse wheezing throughout, irregularly irregular per auscultation, rate 128, brisk capillary refill, patient alert and oriented x 3 Blood cultures - positive for Staph, not MRSA - repeat blood cultx so far negative. Pt already on cefepime, follow final cultx results. ID consulted - obtained TTE - no vegetations seen. Review of patient's allergy list has Keflex and penicillin as allergy. Per chart review patient received cefazolin last month postop. She received cefepime in ER on current admission Cefepime, doxycycline Mucinex, Xopenex nebs -- afebrile -- add hypertonic saline BID add incentive spirometry and flutter valve -- repeat blood culture: negative so far -- continue Cefepime + Doxycycline ID on board Persistent atrial fibrillation with rapid ventricular response Not on anticoagulation secondary to history of GIB in past and is s/p Watchman S/P Watchman Procedure SSS s/p PPM H/O of LV thrombus HR in 130s in ER. Patient without palpitations, SOB, CP and is mentating normally. Suspect secondary to underlying illness and dehydration which treating as above and with IVF. Resume home metoprolol succinate Troponin: 29 Trend troponin 03/21/2024 echo: EF: 55-60%, s/p mitral valve clip, mild mitral regurgitation, moderate mitral stenosis, left atrium severely dilated, moderate-severe tricuspid regurgitation magnesium: 1.8. Will replace to keep at or above 2.0 If uncontrolled consider cardiology consult Continued to be in Afib w/ RVR given IV metoprolol, consulted cardiology - added digoxin, HR now much improved TIFFANY on CKD III Recent TIFFANY with peak creatinine of 3 on 05/28/2024 had trended down to 1.0 on discharge on 06/02/2024 BUN: 43. Cr: 1.4 (was 1.4 on 07/05/2024) IVF Avoid nephrotoxic agents when possible Cr1.77 -> nephrology consulted - initially started torsemide 10 daily -> switched to IV lasix -- continue IV Lasix + potassium monitor crea Recent Fall and Right Femur Fracture S/P intertrochanteric nail Currently at [facility] for rehab PT/OT eval Fall precautions Continue fentanyl patch for pain Chronic Diastolic CHF Severe Tricuspid Regurgitation Hx of severe mitral regurg s/p Mitral Clip -- currently on Lasix IV Recent postop anemia Hgb: 10.8. Improved from 9.5 on 07/05/2024. Had low of 6.8 on 05/26/2024 and received 2 units PRBC during that hospitalization Continue iron supplement History mild Transaminitis: AST 66, alk phos: 216. Around patient's recent levels RADHA, Nocturnal Hypoxia: Continue baseline 2L O2 HS. DM II Diet-controlled. A1c was 6.9% on 03/24/24 Hypothyroidism: Continue levothyroxine DVT Prophylaxis SCDs PCU DNR/DNI as per discussion with pt Follows with Dr Calvo for routine care Admission and Anticipated Discharge Date Admission Date: July 15, 2024 Subjective ff up for sepsis, etc seen resting in bed, comfortable states she continues to feel improved overall breathing and cough improving no problems with urination no abdominal pain no fever/chills no chest pain, palpitations, dizziness no other symptoms Review of Systems Review of Systems: all noted and negative except for above Physical Exam Physical Exam: General- oriented x 3, not in distress, speaks in sentences with no effort or accessory muscle use Eyes- anicteric Neck- no JVD Lungs- mild rhonchi BL good air entry BL Heart- normal rate, regular rhythm; no murmurs Abdomen- normal bowel sounds, nondistended, soft, nontender Extremities- no pretibial edema, no calf tenderness Neuro- alert, oriented x 3; no gross focal neurologic deficits Skin- warm & dry Results & Data Results & Data Vital Signs (Past 12 Hours) Vital Signs Temp Pulse Resp BP Pulse Ox O2 Del Method 07/21/24 10:56 74 18 93 Room Air 07/21/24 07:52 36.5 C 80 19 127/78 93 Room Air 07/21/24 07:10 76 20 91 Room Air 07/21/24 03:15 36.6 C 80 18 115/72 96 Room Air all noted and reviewed including below
[2024-07-21] MEDS: SODIUM CHLOR 7% 4 ML NEB NEB SCH (12:56)
[2024-07-21] MEDS: POTASSIUM CHLORIDE CRTAB 20 MEQ TABCR PO SCH (14:10)
[2024-07-21] MEDS: ceFAZolin 2000MG 2,000 MG/15 ML SYR IV SCH (17:55)
[2024-07-22 05:23] LABS: Hematocrit (blood only) 30.3 % (37.0-47.0); Hemoglobin 10.1 g/dl (12.0-16.0); Mean Corpuscular Hemoglobin 30.3 pg (25.0-34.0); Mean Corpuscular Hgb Conc 33.3 g/dL (32.0-36.0); Mean Platelet Volume 10.9 fL (9.4-12.4); Platelet Count 160 K/uL (130-400); RDW Coefficient of Variation 17.2 % (11.5-14.5); RDW Standard Deviation 56.9 fL (36.4-46.3); Red Blood Count 3.33 M/uL (4.20-5.40); White Blood Count 12.96 K/ul (4.8-10.8)
[2024-07-22 05:39] LABS: BUN Creatinine Ratio 36.8 (10-20); Calcium 9.7 mg/dl (8.6-10.3); Creatinine Clr Calc Pharmacy 27.2 ml/min; Magnesium 1.7 mg/dl (1.7-2.4); Phosphorus 2.6 mg/dl (2.5-4.9)
--- NOTE | 2024-07-22 13:07 | Nephrology Progress Note ---
Date of Service July 22, 2024 Assessment & Plan (1) Acute kidney injury superimposed on stage 3b chronic kidney disease: Plan: Baseline creatinine is in early to mid1.0's, this was 1.4 on admission gradually risen to 1.7 today.She was found to be in AF and has been hypotensive, She has also received IV fluid ( 1100 on 07/15 and 3400 on 07/17). - continue IV Lasix 40 mg twice daily - Daily weight w/ Input and output - Daily BMP (2) Sepsis: Plan: connie source was Urine and chest ( Metapneumavirus) - She ia now growing + cocci in blood. - Renally dose Antibiotics (3) Diastolic congestive heart failure: Plan: will continue Lasix 40 mg twice daily targeting 0.5-1 L daily net negative (4) Acute respiratory failure: Plan: 2/ Metapneumovirus, Admission and Anticipated Discharge Date Admission Date: July 15, 2024 Subjective seen for acute kidney injury due to MSSA bacteremia. He is making urine and was then negative about 150 mL yesterday. Creatinine stable at 1.5. No shortness of breath or leg swelling. Review of Systems Review of Systems: All other systems were reviewed and negative except as noted in HPI Physical Exam Physical Exam: General exam: Appears comfortable, no acute distress HEENT: Pupils are equal and reactive to light Neck: No JVD, neck is supple trachea is midline Respiratory system: Crackles bilaterally. Gastrointestinal: Abdomen is soft, non distended, non tender, bowel sounds are present CVS: Regular rate and rhythm. No murmurs, rubs or gallops Musculoskeletal: No joint or muscle tenderness Extremities: Non tender, no edema, peripheral pulses are present Neuro: Oriented, no tremors, no focal neurological deficits Skin: No rashes Results & Data Vital Signs (Past 12 Hours) Vital Signs Temp Pulse Pulse Pulse Resp BP Pulse Ox 07/22/24 11:53 81 07/22/24 11:51 07/22/24 10:50 77 17 97 07/22/24 07:58 36.4 C L 74 21 124/76 95 07/22/24 07:23 74 19 94 07/22/24 03:03 36.2 C L 82 18 117/73 92 O2 Del Method 07/22/24 11:53 07/22/24 11:51 Room Air 07/22/24 10:50 Room Air 11/28/24 07:58 Room Air 07/22/24 07:23 Room Air 07/22/24 03:03 Room Air (2) Sepsis Sepsis acute organ dysfunction status: with acute organ dysfunction Sepsis type: sepsis due to unspecified organism Severe sepsis acute organ dysfunction type: unspecified
--- NOTE | 2024-07-22 15:53 | Hospitalist Progress Note ---
Date of Service July 22, 2024 Assessment & Plan (1) Acute hypoxic respiratory failure: Plan: per previous hospitalist notes with addendum: (1) Acute UTI: (2) Sepsis: (3) Confusion: (4) Persistent atrial fibrillation with rapid ventricular response: (5) Weakness: (6) Acute respiratory failure: Plan: Patient is 83 year old female with PMH DM II, CKD III, hypothyroidism, polyneuropathy, PVD, HLD, RADHA, moderate persistent asthma, nocturnal hypoxemia, COPD, paroxysmal atrial fibrillation s/p Watchman procedure, sick sinus syndrome s/p pacemaker placement, pulmonary hypertension, chronic diastolic CHF, left carotid artery aneurysm, aortic atherosclerosis, severe tricuspid regurgitation, s/p mitral valve clip for severe mitral regurgitation, GERD, history of TIA and others listed below presented to ER for weakness today. Sepsis Pneumonia Human metapneumovirus COPD/asthma exacerbation, Acute hypoxic respiratory failure Metabolic encephalopathy, secondary to above, now resolved UTI Bacteremia, MSSA In ER T: 38.9C, P: 136, R: 25, BP 149/97, 89% on room air up to 94% on 2 L nasal cannula WBC: 19. Lactate WNL. procalcitonin: 0.3 BioFire respiratory panel:+human metapneumovirus UA:3+leuk esterase, 4+bacteria, >50 WBC CXR: Focus of vague groundglass density in the right lung most concerning for pneumonia including viral etiologies. CT head: no acute intracranial findings Urine culture positive for E.coli In ER given 1000mL NSS, cefepime, 1 g Tylenol IV After IVF patient reassessed and HR: 129, R: 20, BP 117/69, 96% on 2 L via nasal cannula. Lungs with diffuse wheezing throughout, irregularly irregular per auscultation, rate 128, brisk capillary refill, patient alert and oriented x 3 Blood cultures - positive for Staph, not MRSA - repeat blood cultx so far negative. Pt already on cefepime, follow final cultx results. ID consulted - obtained TTE - no vegetations seen. Review of patient's allergy list has Keflex and penicillin as allergy. Per chart review patient received cefazolin last month postop. She received cefepime in ER on current admission Cefepime, doxycycline Mucinex, Xopenex nebs -- afebrile -- add hypertonic saline BID add incentive spirometry and flutter valve -- repeat blood culture: negative so far -- continue Cefepime + Doxycycline ID on board 07/22: remains on room air still has some rhonchi but improving confirmed adverse reaction to Prednisone: hives continue nebs, IS and FV continue Cefazolin Persistent atrial fibrillation with rapid ventricular response Not on anticoagulation secondary to history of GIB in past and is s/p Watchman S/P Watchman Procedure SSS s/p PPM H/O of LV thrombus HR in 130s in ER. Patient without palpitations, SOB, CP and is mentating normally. Suspect secondary to underlying illness and dehydration which treating as above and with IVF. Resume home metoprolol succinate Troponin: 29 Trend troponin 03/21/2024 echo: EF: 55-60%, s/p mitral valve clip, mild mitral regurgitation, moderate mitral stenosis, left atrium severely dilated, moderate-severe tricuspid regurgitation magnesium: 1.8. Will replace to keep at or above 2.0 If uncontrolled consider cardiology consult Continued to be in Afib w/ RVR given IV metoprolol, consulted cardiology - added digoxin, HR now much improved 07/22 stable continue Digoxin TIFFANY on CKD III Recent TIFFANY with peak creatinine of 3 on 05/28/2024 had trended down to 1.0 on discharge on 06/02/2024 BUN: 43. Cr: 1.4 (was 1.4 on 07/05/2024) IVF Avoid nephrotoxic agents when possible Cr1.77 -> nephrology consulted - initially started torsemide 10 daily -> switched to IV lasix -- continue IV Lasix + potassium monitor crea 07/22 continue Lasix IV Nephro on board Recent Fall and Right Femur Fracture S/P intertrochanteric nail Currently at [facility] for rehab PT/OT eval Fall precautions Continue fentanyl patch for pain Chronic Diastolic CHF Severe Tricuspid Regurgitation Hx of severe mitral regurg s/p Mitral Clip -- currently on Lasix IV Recent postop anemia Hgb: 10.8. Improved from 9.5 on 07/05/2024. Had low of 6.8 on 05/26/2024 and received 2 units PRBC during that hospitalization Continue iron supplement History mild Transaminitis: AST 66, alk phos: 216. Around patient's recent levels RADHA, Nocturnal Hypoxia: Continue baseline 2L O2 HS. DM II Diet-controlled. A1c was 6.9% on 03/24/24 Hypothyroidism: Continue levothyroxine DVT Prophylaxis SCDs PCU DNR/DNI as per discussion with pt Follows with Dr Calvo for routine care Admission and Anticipated Discharge Date Admission Date: July 15, 2024 Subjective ff up for sepsis, pneumonia, bacteremia, acute renal failure on CKD 3, etc seen resting in chair, comfortable, in good spirits states breathing is improving, less cough no abdominal pain, problems with urination no fever/chills no other symptoms Review of Systems Review of Systems: all noted and negative except for above Physical Exam Physical Exam: General- oriented x 3, not in distress, speaks in sentences with no effort or accessory muscle use Eyes- anicteric Neck- no JVD Lungs- mild rhonchi BL good air entry BL Heart- normal rate, regular rhythm; no murmurs Abdomen- normal bowel sounds, nondistended, soft, nontender Extremities- no pretibial edema, no calf tenderness Neuro- alert, oriented x 3; no gross focal neurologic deficits Skin- warm & dry Results & Data Results & Data Vital Signs (Past 12 Hours) Vital Signs Temp Pulse Pulse Resp BP Pulse Ox O2 Del Method 07/22/24 14:49 76 18 95 Room Air 07/22/24 11:53 81 07/22/24 11:51 Room Air 07/22/24 10:50 77 17 97 Room Air 07/22/24 07:58 36.4 C L 74 21 124/76 95 Room Air 07/22/24 07:23 74 19 94 Room Air all noted and reviewed including below
--- NOTE | 2024-07-23 14:23 | Nephrology Progress Note ---
Date of Service July 23, 2024 Assessment & Plan (1) Acute kidney injury superimposed on stage 3b chronic kidney disease: Plan: Baseline creatinine is in early to mid1.0's, Creatinine stable at 1.5 today.She was found to be in AF and has been hypotensive, She has also received IV fluid ( 1100 on 07/15 and 3400 on 07/17). - continue IV Lasix 40 mg twice daily - Daily weight w/ Input and output - Daily BMP (2) Sepsis: Plan: connie source was Urine and chest ( Metapneumavirus) - She ia now growing + cocci in blood. - Renally dose Antibiotics (3) Diastolic congestive heart failure: Plan: will continue Lasix 40 mg twice daily targeting 0.5-1 L daily net negative (4) Acute respiratory failure: Plan: 2/ Metapneumovirus, Admission and Anticipated Discharge Date Admission Date: July 15, 2024 Subjective Seen for acute kidney injury. He feels better today. She is ambulating with a walker in the room. She is making urine and creatinine stable. Review of Systems 2 Review of Systems: All other systems were reviewed and negative except as noted in HPI Physical Exam 2 Physical Exam: General exam: Appears comfortable, no acute distress HEENT: Pupils are equal and reactive to light Neck: No JVD, neck is supple trachea is midline Respiratory system: Crackles bilaterally. Gastrointestinal: Abdomen is soft, non distended, non tender, bowel sounds are present CVS: Regular rate and rhythm. No murmurs, rubs or gallops Musculoskeletal: No joint or muscle tenderness Extremities: Non tender, no edema, peripheral pulses are present Neuro: Oriented, no tremors, no focal neurological deficits Skin: No rashes Results & Data Vital Signs (Past 12 Hours) Vital Signs Temp Pulse Resp BP Pulse Ox O2 Del Method O2 Flow Rate 07/23/24 11:35 36.4 C L 84 17 99/64 L 94 Room Air 07/23/24 11:15 68 17 98 Room Air 07/23/24 10:45 Room Air 07/23/24 07:46 36.4 C L 79 17 116/63 100 Nebulizer 07/23/24 07:29 63 16 94 Nasal Cannula 2 07/23/24 02:51 36.5 C 74 18 109/68 94 Room Air Laboratory Results 07/22/24 04:51 (2) Sepsis Sepsis acute organ dysfunction status: with acute organ dysfunction Sepsis type: sepsis due to unspecified organism Severe sepsis acute organ dysfunction type: unspecified
[2024-07-23] MEDS: POTASSIUM CHLORIDE 20 MEQ/15 ML UDC PO SCH (15:17)
--- NOTE | 2024-07-23 16:42 | Hospitalist Progress Note ---
Date of Service July 23, 2024 Assessment & Plan (1) Acute hypoxic respiratory failure: Plan: per previous hospitalist notes with addendum: (1) Acute UTI: (2) Sepsis: (3) Confusion: (4) Persistent atrial fibrillation with rapid ventricular response: (5) Weakness: (6) Acute respiratory failure: Plan: Patient is 83 year old female with PMH DM II, CKD III, hypothyroidism, polyneuropathy, PVD, HLD, RADHA, moderate persistent asthma, nocturnal hypoxemia, COPD, paroxysmal atrial fibrillation s/p Watchman procedure, sick sinus syndrome s/p pacemaker placement, pulmonary hypertension, chronic diastolic CHF, left carotid artery aneurysm, aortic atherosclerosis, severe tricuspid regurgitation, s/p mitral valve clip for severe mitral regurgitation, GERD, history of TIA and others listed below presented to ER for weakness today. Sepsis Pneumonia Human metapneumovirus COPD/asthma exacerbation, Acute hypoxic respiratory failure Metabolic encephalopathy, secondary to above, now resolved UTI Bacteremia, MSSA In ER T: 38.9C, P: 136, R: 25, BP 149/97, 89% on room air up to 94% on 2 L nasal cannula WBC: 19. Lactate WNL. procalcitonin: 0.3 BioFire respiratory panel:+human metapneumovirus UA:3+leuk esterase, 4+bacteria, >50 WBC CXR: Focus of vague groundglass density in the right lung most concerning for pneumonia including viral etiologies. CT head: no acute intracranial findings Urine culture positive for E.coli In ER given 1000mL NSS, cefepime, 1 g Tylenol IV After IVF patient reassessed and HR: 129, R: 20, BP 117/69, 96% on 2 L via nasal cannula. Lungs with diffuse wheezing throughout, irregularly irregular per auscultation, rate 128, brisk capillary refill, patient alert and oriented x 3 Blood cultures - positive for Staph, not MRSA - repeat blood cultx so far negative. Pt already on cefepime, follow final cultx results. ID consulted - obtained TTE - no vegetations seen. Review of patient's allergy list has Keflex and penicillin as allergy. Per chart review patient received cefazolin last month postop. She received cefepime in ER on current admission Cefepime, doxycycline Mucinex, Xopenex nebs -- afebrile -- add hypertonic saline BID add incentive spirometry and flutter valve -- repeat blood culture: negative so far -- continue Cefepime + Doxycycline ID on board 07/22: remains on room air still has some rhonchi but improving confirmed adverse reaction to Prednisone: hives continue nebs, IS and FV continue Cefazolin Persistent atrial fibrillation with rapid ventricular response Not on anticoagulation secondary to history of GIB in past and is s/p Watchman S/P Watchman Procedure SSS s/p PPM H/O of LV thrombus HR in 130s in ER. Patient without palpitations, SOB, CP and is mentating normally. Suspect secondary to underlying illness and dehydration which treating as above and with IVF. Resume home metoprolol succinate Troponin: 29 Trend troponin 03/21/2024 echo: EF: 55-60%, s/p mitral valve clip, mild mitral regurgitation, moderate mitral stenosis, left atrium severely dilated, moderate-severe tricuspid regurgitation magnesium: 1.8. Will replace to keep at or above 2.0 If uncontrolled consider cardiology consult Continued to be in Afib w/ RVR given IV metoprolol, consulted cardiology - added digoxin, HR now much improved 07/22 stable continue Digoxin TIFFANY on CKD III Recent TIFFANY with peak creatinine of 3 on 05/28/2024 had trended down to 1.0 on discharge on 06/02/2024 BUN: 43. Cr: 1.4 (was 1.4 on 07/05/2024) IVF Avoid nephrotoxic agents when possible Cr1.77 -> nephrology consulted - initially started torsemide 10 daily -> switched to IV lasix -- continue IV Lasix + potassium monitor crea 07/22 continue Lasix IV Nephro on board Recent Fall and Right Femur Fracture S/P intertrochanteric nail Currently at [facility] for rehab PT/OT eval Fall precautions Continue fentanyl patch for pain Chronic Diastolic CHF Severe Tricuspid Regurgitation Hx of severe mitral regurg s/p Mitral Clip -- currently on Lasix IV Recent postop anemia Hgb: 10.8. Improved from 9.5 on 07/05/2024. Had low of 6.8 on 05/26/2024 and received 2 units PRBC during that hospitalization Continue iron supplement History mild Transaminitis: AST 66, alk phos: 216. Around patient's recent levels RADHA, Nocturnal Hypoxia: Continue baseline 2L O2 HS. DM II Diet-controlled. A1c was 6.9% on 03/24/24 Hypothyroidism: Continue levothyroxine DVT Prophylaxis SCDs PCU DNR/DNI as per discussion with pt Follows with Dr Calvo for routine care Admission and Anticipated Discharge Date Admission Date: July 15, 2024 Results & Data Results & Data Vital Signs (Past 12 Hours) Vital Signs Temp Pulse Resp BP Pulse Ox O2 Del Method O2 Flow Rate 07/23/24 15:15 65 16 97 Room Air 07/23/24 14:41 36.5 C 84 19 101/67 93 Room Air 07/23/24 11:35 36.4 C L 84 17 99/64 L 94 Room Air 07/23/24 11:15 68 17 98 Room Air 07/23/24 10:45 Room Air 07/23/24 07:46 36.4 C L 79 17 116/63 100 Nebulizer 07/23/24 07:29 63 16 94 Nasal Cannula 2
[2024-07-24 08:30] LABS: Basophils # (auto) 0.06 K/uL (0.00-0.20); Basophils % (auto) 0.5 %; Eosinophils # (auto) 0.51 K/uL (0.00-0.50); Hematocrit (blood only) 30.8 % (37.0-47.0); Immature Granulocytes # (auto) 0.19 K/uL (0.01-0.20); Immature Granulocytes % (auto) 1.5 %; Lymphocytes # (auto) 1.86 K/uL (1.20-3.40); Lymphocytes % (auto) 14.5 %; Mean Corpuscular Hemoglobin 29.8 pg (25.0-34.0); Mean Corpuscular Hgb Conc 32.5 g/dL (32.0-36.0); Mean Corpuscular Volume 91.7 fL (80.0-100.0); Mean Platelet Volume 10.6 fL (9.4-12.4); Monocytes # (auto) 0.96 K/uL (0.11-0.59); Monocytes % (auto) 7.5 %; Neutrophils # (auto) 9.25 K/uL (1.40-6.50); Platelet Count 188 K/uL (130-400); RDW Coefficient of Variation 17.3 % (11.5-14.5); RDW Standard Deviation 57.6 fL (36.4-46.3); Red Blood Count 3.36 M/uL (4.20-5.40); White Blood Count 12.83 K/ul (4.8-10.8)
[2024-07-24 08:39] LABS: BUN Creatinine Ratio 33.5 (10-20); Calcium 9.3 mg/dl (8.6-10.3); Creatinine Clr Calc Pharmacy 21.5 ml/min; Potassium 3.7 mmol/L (3.5-5.1)
--- NOTE | 2024-07-24 09:18 | Nephrology Progress Note ---
Date of Service July 24, 2024 Assessment & Plan (1) Acute kidney injury superimposed on stage 3b chronic kidney disease: Plan: Baseline creatinine is in early to mid1.0's, Creatinine uptrending, 1.88 today.She was found to be in AF and has been hypotensive, She has also received IV fluid ( 1100 on 07/15 and 3400 on 07/17). -Stop lasix today - Daily weight w/ Input and output - Daily BMP (2) Diastolic congestive heart failure: Plan: She appears euvolemic now. Will stop lasix and kcl. Monitor daily weight and urine output Admission and Anticipated Discharge Date Admission Date: July 15, 2024 Subjective Seen for TIFFANY. No SOB. she didn't sleep well last night. No leg swelling. Cr uptrending Review of Systems 2 Review of Systems: All other systems were reviewed and negative except as noted in HPI Physical Exam 2 Physical Exam: General exam: Appears comfortable, no acute distress HEENT: Pupils are equal and reactive to light Neck: No JVD, neck is supple trachea is midline Respiratory system: Crackles bilaterally. Gastrointestinal: Abdomen is soft, non distended, non tender, bowel sounds are present CVS: Regular rate and rhythm. No murmurs, rubs or gallops Musculoskeletal: No joint or muscle tenderness Extremities: Non tender, no edema, peripheral pulses are present Neuro: Oriented, no tremors, no focal neurological deficits Skin: No rashes Results & Data Vital Signs (Past 12 Hours) Vital Signs Temp Pulse Pulse Resp BP Pulse Ox O2 Del Method 07/24/24 07:35 Room Air 07/24/24 07:34 78 07/24/24 07:30 36.4 C L 81 20 107/65 95 Room Air 07/24/24 07:24 59 L 14 92 Room Air 07/24/24 03:19 36.5 C 87 18 122/73 95 Room Air 07/23/24 23:13 84 07/23/24 22:20 37.0 C 90 18 128/73 94 Room Air FiO2 07/24/24 07:35 07/24/24 07:34 07/24/24 07:30 07/24/24 07:24 21 07/24/24 03:19 07/23/24 23:13 07/23/24 22:20 Laboratory Results 07/24/24 07:58 07/24/24 07:58 WBC 12.83 H RBC 3.36 L MCV 91.7 MCH 29.8 MCHC 32.5 RDW Std Deviation 57.6 H RDW Coeff of Francisco Javier 17.3 H Plt Count 188 MPV 10.6
[2024-07-24] MEDS: CEFEPIME 2000MG 2,000 MG/20 ML SYR IV ONE (17:27)
[2024-07-24] MEDS: BUDESONIDE 0.5 MG/2 ML VIAL (PULMICORT) NEB SCH (19:51)
--- NOTE | 2024-07-24 20:13 | Hospitalist Progress Note ---
Date of Service July 24, 2024 Assessment & Plan (1) Acute hypoxic respiratory failure: Plan: per previous hospitalist notes with addendum: (1) Acute UTI: (2) Sepsis: (3) Confusion: (4) Persistent atrial fibrillation with rapid ventricular response: (5) Weakness: (6) Acute respiratory failure: Plan: Patient is 83 year old female with PMH DM II, CKD III, hypothyroidism, polyneuropathy, PVD, HLD, RADHA, moderate persistent asthma, nocturnal hypoxemia, COPD, paroxysmal atrial fibrillation s/p Watchman procedure, sick sinus syndrome s/p pacemaker placement, pulmonary hypertension, chronic diastolic CHF, left carotid artery aneurysm, aortic atherosclerosis, severe tricuspid regurgitation, s/p mitral valve clip for severe mitral regurgitation, GERD, history of TIA and others listed below presented to ER for weakness today. Sepsis Pneumonia Human metapneumovirus COPD/asthma exacerbation, Acute hypoxic respiratory failure Metabolic encephalopathy, secondary to above, now resolved UTI Bacteremia, MSSA In ER T: 38.9C, P: 136, R: 25, BP 149/97, 89% on room air up to 94% on 2 L nasal cannula WBC: 19. Lactate WNL. procalcitonin: 0.3 BioFire respiratory panel:+human metapneumovirus UA:3+leuk esterase, 4+bacteria, >50 WBC CXR: Focus of vague groundglass density in the right lung most concerning for pneumonia including viral etiologies. CT head: no acute intracranial findings Urine culture positive for E.coli In ER given 1000mL NSS, cefepime, 1 g Tylenol IV After IVF patient reassessed and HR: 129, R: 20, BP 117/69, 96% on 2 L via nasal cannula. Lungs with diffuse wheezing throughout, irregularly irregular per auscultation, rate 128, brisk capillary refill, patient alert and oriented x 3 Blood cultures - positive for Staph, not MRSA - repeat blood cultx so far negative. Pt already on cefepime, follow final cultx results. ID consulted - obtained TTE - no vegetations seen. Review of patient's allergy list has Keflex and penicillin as allergy. Per chart review patient received cefazolin last month postop. She received cefepime in ER on current admission Cefepime, doxycycline Mucinex, Xopenex nebs -- afebrile -- add hypertonic saline BID add incentive spirometry and flutter valve -- repeat blood culture: negative so far -- continue Cefepime + Doxycycline ID on board 07/22: remains on room air still has some rhonchi but improving confirmed adverse reaction to Prednisone: hives continue nebs, IS and FV continue Cefazolin 07/24 still having some rhonchi add Pulmicort switch back to Cefepime Persistent atrial fibrillation with rapid ventricular response Not on anticoagulation secondary to history of GIB in past and is s/p Watchman S/P Watchman Procedure SSS s/p PPM H/O of LV thrombus HR in 130s in ER. Patient without palpitations, SOB, CP and is mentating normally. Suspect secondary to underlying illness and dehydration which treating as above and with IVF. Resume home metoprolol succinate Troponin: 29 Trend troponin 03/21/2024 echo: EF: 55-60%, s/p mitral valve clip, mild mitral regurgitation, moderate mitral stenosis, left atrium severely dilated, moderate-severe tricuspid regurgitation magnesium: 1.8. Will replace to keep at or above 2.0 If uncontrolled consider cardiology consult Continued to be in Afib w/ RVR given IV metoprolol, consulted cardiology - added digoxin, HR now much improved 07/24 stable continue Digoxin TIFFANY on CKD III Recent TIFFANY with peak creatinine of 3 on 05/28/2024 had trended down to 1.0 on discharge on 06/02/2024 BUN: 43. Cr: 1.4 (was 1.4 on 07/05/2024) IVF Avoid nephrotoxic agents when possible Cr1.77 -> nephrology consulted - initially started torsemide 10 daily -> switched to IV lasix -- continue IV Lasix + potassium monitor crea 07/22 continue Lasix IV Nephro on board 07/24 Lasix discontinued Recent Fall and Right Femur Fracture S/P intertrochanteric nail Currently at [facility] for rehab PT/OT eval Fall precautions Continue fentanyl patch for pain Chronic Diastolic CHF Severe Tricuspid Regurgitation Hx of severe mitral regurg s/p Mitral Clip -- now euvolemic Lasix discontinued Recent postop anemia Hgb: 10.8. Improved from 9.5 on 07/05/2024. Had low of 6.8 on 05/26/2024 and received 2 units PRBC during that hospitalization Continue iron supplement History mild Transaminitis: AST 66, alk phos: 216. Around patient's recent levels RADHA, Nocturnal Hypoxia: Continue baseline 2L O2 HS. DM II Diet-controlled. A1c was 6.9% on 03/24/24 Hypothyroidism: Continue levothyroxine DVT Prophylaxis SCDs PCU DNR/DNI as per discussion with pt Follows with Dr Calvo for routine care Admission and Anticipated Discharge Date Admission Date: July 15, 2024 Subjective ff up for pneumonia, etc seen resting in bed, sitting up states she continues to feel better overall breathing is improving minimal cough no other symptoms Review of Systems Review of Systems: all noted and negative except for above Physical Exam Physical Exam: General- oriented x 3, not in distress, speaks in sentences with no effort or accessory muscle use Eyes- anicteric Neck- no JVD Lungs- mild rhonchi, intermittent wheeze bl Heart- normal rate, regular rhythm; no murmurs Abdomen- normal bowel sounds, nondistended, soft, no tenderness Extremities- no pretibial edema, no calf tenderness Neuro- alert, oriented x 3; no gross focal neurologic deficits Skin- warm & dry Results & Data Results & Data Vital Signs (Past 12 Hours) Vital Signs Temp Pulse Resp BP Pulse Ox O2 Del Method FiO2 07/24/24 19:51 65 16 97 Room Air 07/24/24 19:24 36.6 C 70 18 107/66 95 Room Air 07/24/24 15:33 61 15 98 Room Air 21 07/24/24 15:20 36.6 C 78 18 109/70 97 Room Air 07/24/24 12:39 36.6 C 67 21 102/59 L 97 Room Air 07/24/24 11:46 80 15 98 Room Air 21 all noted and reviewed including below
[2024-07-25] MEDS: CEFEPIME 1000MG 1,000 MG/10 ML SYR IV SCH (04:17)
[2024-07-25] MEDS: BENZONATATE 100 MG CAPSULE PO PRN (05:48)
[2024-07-25 09:02] LABS: BUN Creatinine Ratio 39.5 (10-20); Calcium 9.6 mg/dl (8.6-10.3); Creatinine Clr Calc Pharmacy 25.3 ml/min; Potassium 3.8 mmol/L (3.5-5.1)
[2024-07-25] MEDS: TORSEMIDE 20 MG TAB PO SCH (10:43)
--- NOTE | 2024-07-25 15:07 | Nephrology Progress Note ---
Date of Service July 25, 2024 Assessment & Plan (1) Acute kidney injury superimposed on stage 3b chronic kidney disease: Plan: Baseline creatinine is in early to mid1.0's, Creatinine down to 1.6 today.She was found to be in AF and hypotensive, She received IV fluid ( 1100 on 07/15 and 3400 on 07/17). - will restart torsemide 40 mg daily - Daily weight w/ Input and output - Daily BMP (2) Diastolic congestive heart failure: Plan: She appears slightly hypervolemic. Will restart torsemide 40 mg daily as above. Monitor daily weight and urine output Admission and Anticipated Discharge Date Admission Date: July 15, 2024 Subjective seen for acute kidney injury and volume overload. She complains of shortness of breath this morning. Creatinine slightly better today Review of Systems 2 Review of Systems: All other systems were reviewed and negative except as noted in HPI Physical Exam 2 Physical Exam: General exam: Appears comfortable, no acute distress HEENT: Pupils are equal and reactive to light Neck: No JVD, neck is supple trachea is midline Respiratory system: Crackles bilaterally. Gastrointestinal: Abdomen is soft, non distended, non tender, bowel sounds are present CVS: Regular rate and rhythm. No murmurs, rubs or gallops Musculoskeletal: No joint or muscle tenderness Extremities: Non tender, no edema, peripheral pulses are present Neuro: Oriented, no tremors, no focal neurological deficits Skin: No rashes Results & Data Vital Signs (Past 12 Hours) Vital Signs Temp Pulse Pulse Resp BP Pulse Ox O2 Del Method 07/25/24 12:29 36.6 C 66 20 102/62 97 Room Air 07/25/24 11:15 68 16 98 Room Air 07/25/24 08:06 70 07/25/24 07:43 Room Air 07/25/24 07:29 76 20 95 Room Air 07/25/24 07:19 36.5 C 79 19 110/67 96 Room Air 07/25/24 03:21 36.4 C L 79 16 102/60 94 Room Air Laboratory Results 07/25/24 08:29
--- NOTE | 2024-07-25 17:15 | Hospitalist Progress Note ---
Date of Service July 25, 2024 Assessment & Plan (1) Acute hypoxic respiratory failure: Plan: per previous hospitalist notes with addendum: (1) Acute UTI: (2) Sepsis: (3) Confusion: (4) Persistent atrial fibrillation with rapid ventricular response: (5) Weakness: (6) Acute respiratory failure: Plan: Patient is 83 year old female with PMH DM II, CKD III, hypothyroidism, polyneuropathy, PVD, HLD, RADHA, moderate persistent asthma, nocturnal hypoxemia, COPD, paroxysmal atrial fibrillation s/p Watchman procedure, sick sinus syndrome s/p pacemaker placement, pulmonary hypertension, chronic diastolic CHF, left carotid artery aneurysm, aortic atherosclerosis, severe tricuspid regurgitation, s/p mitral valve clip for severe mitral regurgitation, GERD, history of TIA and others listed below presented to ER for weakness today. Sepsis Pneumonia Human metapneumovirus COPD/asthma exacerbation, Acute hypoxic respiratory failure Metabolic encephalopathy, secondary to above, now resolved UTI Bacteremia, MSSA In ER T: 38.9C, P: 136, R: 25, BP 149/97, 89% on room air up to 94% on 2 L nasal cannula WBC: 19. Lactate WNL. procalcitonin: 0.3 BioFire respiratory panel:+human metapneumovirus UA:3+leuk esterase, 4+bacteria, >50 WBC CXR: Focus of vague groundglass density in the right lung most concerning for pneumonia including viral etiologies. CT head: no acute intracranial findings Urine culture positive for E.coli In ER given 1000mL NSS, cefepime, 1 g Tylenol IV After IVF patient reassessed and HR: 129, R: 20, BP 117/69, 96% on 2 L via nasal cannula. Lungs with diffuse wheezing throughout, irregularly irregular per auscultation, rate 128, brisk capillary refill, patient alert and oriented x 3 Blood cultures - positive for Staph, not MRSA - repeat blood cultx so far negative. Pt already on cefepime, follow final cultx results. ID consulted - obtained TTE - no vegetations seen. Review of patient's allergy list has Keflex and penicillin as allergy. Per chart review patient received cefazolin last month postop. She received cefepime in ER on current admission Cefepime, doxycycline Mucinex, Xopenex nebs -- afebrile -- add hypertonic saline BID add incentive spirometry and flutter valve -- repeat blood culture: negative so far -- continue Cefepime + Doxycycline ID on board 07/22: remains on room air still has some rhonchi but improving confirmed adverse reaction to Prednisone: hives continue nebs, IS and FV continue Cefazolin 07/24 still having some rhonchi add Pulmicort switch back to Cefepime 07/25 Rhonchi and wheeze improving Continue Pulmicort twice daily Continue cefepime IVFor MSSA bacteremia and E. coli UTI--> Will discuss with ID regarding antibiotic duration upon discharge Continue other regimen Persistent atrial fibrillation with rapid ventricular response Not on anticoagulation secondary to history of GIB in past and is s/p Watchman S/P Watchman Procedure SSS s/p PPM H/O of LV thrombus HR in 130s in ER. Patient without palpitations, SOB, CP and is mentating normally. Suspect secondary to underlying illness and dehydration which treating as above and with IVF. Resume home metoprolol succinate Troponin: 29 Trend troponin 03/21/2024 echo: EF: 55-60%, s/p mitral valve clip, mild mitral regurgitation, moderate mitral stenosis, left atrium severely dilated, moderate-severe tricuspid regurgitation magnesium: 1.8. Will replace to keep at or above 2.0 If uncontrolled consider cardiology consult Continued to be in Afib w/ RVR given IV metoprolol, consulted cardiology - added digoxin, HR now much improved 07/25 stable continue Digoxin TIFFANY on CKD III Recent TIFFANY with peak creatinine of 3 on 05/28/2024 had trended down to 1.0 on discharge on 06/02/2024 BUN: 43. Cr: 1.4 (was 1.4 on 07/05/2024) IVF Avoid nephrotoxic agents when possible Cr1.77 -> nephrology consulted - initially started torsemide 10 daily -> switched to IV lasix -- continue IV Lasix + potassium monitor crea 07/22 continue Lasix IV Nephro on board 07/24 Lasix discontinued 07/25 resume Torsemide PO tomorrow Recent Fall and Right Femur Fracture S/P intertrochanteric nail Currently at [facility] for rehab PT/OT eval Fall precautions Continue fentanyl patch for pain Chronic Diastolic CHF Severe Tricuspid Regurgitation Hx of severe mitral regurg s/p Mitral Clip -- now euvolemic Lasix discontinued Torsemide tomorrow Recent postop anemia Hgb: 10.8. Improved from 9.5 on 07/05/2024. Had low of 6.8 on 05/26/2024 and received 2 units PRBC during that hospitalization Continue iron supplement History mild Transaminitis: AST 66, alk phos: 216. Around patient's recent levels RADHA, Nocturnal Hypoxia: Continue baseline 2L O2 HS. DM II Diet-controlled. A1c was 6.9% on 03/24/24 Hypothyroidism: Continue levothyroxine DVT Prophylaxis SCDs PCU DNR/DNI as per discussion with pt Follows with Dr Calvo for routine care Admission and Anticipated Discharge Date Admission Date: July 15, 2024 Subjective Follow-up for bacteremia, etc. Seen resting in bedside chair, comfortable, not in distress States she continues to feel improved overall Breathing continues to improve as well as cough, getting looser No chest pain, palpitations, dizziness No fevers or chills No other new symptoms Review of Systems Review of Systems: all noted and negative except for above Physical Exam Physical Exam: General- oriented x 3, not in distress, speaks in sentences with no effort or accessory muscle use Eyes- anicteric Neck- no JVD Lungs- Positive rhonchi and intermittent wheeze bilaterally, improving Heart- normal rate, regular rhythm; no murmurs Abdomen- normal bowel sounds, nondistended, soft, nontender Extremities- no pretibial edema, no calf tenderness Neuro- alert, oriented x 3; no gross focal neurologic deficits Skin- warm & dry Results & Data Results & Data Vital Signs (Past 12 Hours) Vital Signs Temp Pulse Pulse Resp BP Pulse Ox O2 Del Method 07/25/24 15:40 76 16 96 Room Air 07/25/24 15:05 36.7 C 82 19 112/68 97 Room Air 07/25/24 12:29 36.6 C 66 20 102/62 97 Room Air 07/25/24 11:15 68 16 98 Room Air 07/25/24 08:06 70 07/25/24 07:43 Room Air 07/25/24 07:29 76 20 95 Room Air 07/25/24 07:19 36.5 C 79 19 110/67 96 Room Air all noted and reviewed including below
[2024-07-26] MEDS ORDERED: TORSEMIDE 20 MG TAB PO SCH (09:00)
--- NOTE | 2024-07-26 12:14 | Nephrology Progress Note ---
Date of Service July 26, 2024 Assessment & Plan (1) Acute kidney injury superimposed on stage 3b chronic kidney disease: Plan: Baseline creatinine is in early to mid 1.0's, Creatinine plateau'd at 1.6 today >> she is at / near baseline. She was found to be in AF and hypotensive, She received IV fluid ( 1100 on 07/15 and 3400 on 07/17). - continue 07/24 restarted torsemide 40 mg daily >> will likely need lower standing torsemide dose - Daily weight w/ Input and output - Daily BMP (2) Diastolic congestive heart failure: Plan: improved hypervolemia on 40 mg daily torsemide Monitor daily weight and urine output Admission and Anticipated Discharge Date Admission Date: July 15, 2024 Subjective seen on late AM rounds. sitting up in chair. tired. not dypsneic at rest. Review of Systems 2 Review of Systems: All systems reviewed & are unremarkable except as noted in Subjective Physical Exam 2 Constitutional: well developed, well nourished, + frail appearing and cooperative; no acute distress Eyes: EOM intact bilaterally ENMT: Mouth: + dry oral mucous membranes Neck: no nuchal rigidity Respiratory: normal respiratory effort and + cough (thick) Auscultation: + diminished lung sounds and + crackles (fine bibasilar) Cardiovascular: Rate/Rhythm: regular rate and regular rhythm Extremities: + edema (trace L>R BLE) Musculoskeletal: Extremities: strength 5/5 throughout Skin: no rashes, warm and dry Neurologic: talley, fluent speech, no tremor Psychiatric: Orientation: alert and oriented x 3 Results & Data Vital Signs (Past 12 Hours) Vital Signs Temp Pulse Resp BP Pulse Ox O2 Del Method 07/26/24 11:34 67 16 97 Room Air 07/26/24 07:56 Room Air 07/26/24 07:45 36.3 C L 68 19 111/64 98 Room Air 07/26/24 07:14 76 16 96 Room Air 07/26/24 03:10 36.4 C L 70 18 100/53 L 94 Room Air Laboratory Results 07/24/24 07:58 07/25/24 08:29
--- NOTE | 2024-07-26 19:05 | Hospitalist Progress Note ---
Date of Service July 26, 2024 Assessment & Plan (1) Acute hypoxic respiratory failure: Plan: per previous hospitalist notes with addendum: (1) Acute UTI: (2) Sepsis: (3) Confusion: (4) Persistent atrial fibrillation with rapid ventricular response: (5) Weakness: (6) Acute respiratory failure: Plan: Patient is 83 year old female with PMH DM II, CKD III, hypothyroidism, polyneuropathy, PVD, HLD, RADHA, moderate persistent asthma, nocturnal hypoxemia, COPD, paroxysmal atrial fibrillation s/p Watchman procedure, sick sinus syndrome s/p pacemaker placement, pulmonary hypertension, chronic diastolic CHF, left carotid artery aneurysm, aortic atherosclerosis, severe tricuspid regurgitation, s/p mitral valve clip for severe mitral regurgitation, GERD, history of TIA and others listed below presented to ER for weakness today. Sepsis Pneumonia Human metapneumovirus COPD/asthma exacerbation, Acute hypoxic respiratory failure Metabolic encephalopathy, secondary to above, now resolved UTI Bacteremia, MSSA In ER T: 38.9C, P: 136, R: 25, BP 149/97, 89% on room air up to 94% on 2 L nasal cannula WBC: 19. Lactate WNL. procalcitonin: 0.3 BioFire respiratory panel:+human metapneumovirus UA:3+leuk esterase, 4+bacteria, >50 WBC CXR: Focus of vague groundglass density in the right lung most concerning for pneumonia including viral etiologies. CT head: no acute intracranial findings Urine culture positive for E.coli In ER given 1000mL NSS, cefepime, 1 g Tylenol IV After IVF patient reassessed and HR: 129, R: 20, BP 117/69, 96% on 2 L via nasal cannula. Lungs with diffuse wheezing throughout, irregularly irregular per auscultation, rate 128, brisk capillary refill, patient alert and oriented x 3 Blood cultures - positive for Staph, not MRSA - repeat blood cultx so far negative. Pt already on cefepime, follow final cultx results. ID consulted - obtained TTE - no vegetations seen. Review of patient's allergy list has Keflex and penicillin as allergy. Per chart review patient received cefazolin last month postop. She received cefepime in ER on current admission Cefepime, doxycycline Mucinex, Xopenex nebs -- afebrile -- add hypertonic saline BID add incentive spirometry and flutter valve -- repeat blood culture: negative so far -- continue Cefepime + Doxycycline ID on board 07/22: remains on room air still has some rhonchi but improving confirmed adverse reaction to Prednisone: hives continue nebs, IS and FV continue Cefazolin 07/24 still having some rhonchi add Pulmicort switch back to Cefepime 07/25 Rhonchi and wheeze improving Continue Pulmicort twice daily Continue cefepime IVFor MSSA bacteremia and E. coli UTI--> Will discuss with ID regarding antibiotic duration upon discharge Continue other regimen 07/26 doing better still has some rhonchi continue Pulmicort, Xopenex, Anoro Ellipta Cefepime IV x 3 more days to complete 14 day course Incentive spirometry and flutter valve Persistent atrial fibrillation with rapid ventricular response Not on anticoagulation secondary to history of GIB in past and is s/p Watchman S/P Watchman Procedure SSS s/p PPM H/O of LV thrombus HR in 130s in ER. Patient without palpitations, SOB, CP and is mentating n ormally. Suspect secondary to underlying illness and dehydration which treating as above and with IVF. Resume home metoprolol succinate Troponin: 29 Trend troponin 03/21/2024 echo: EF: 55-60%, s/p mitral valve clip, mild mitral regurgitation, moderate mitral stenosis, left atrium severely dilated, moderate-severe tricuspid regurgitation magnesium: 1.8. Will replace to keep at or above 2.0 If uncontrolled consider cardiology consult Continued to be in Afib w/ RVR given IV metoprolol, consulted cardiology - added digoxin, HR now much improved 07/26 stable continue Metoprolol XL TIFFANY on CKD III Recent TIFFANY with peak creatinine of 3 on 05/28/2024 had trended down to 1.0 on discharge on 06/02/2024 BUN: 43. Cr: 1.4 (was 1.4 on 07/05/2024) IVF Avoid nephrotoxic agents when possible Cr1.77 -> nephrology consulted - initially started torsemide 10 daily -> switched to IV lasix -- continue IV Lasix + potassium monitor crea 07/22 continue Lasix IV Nephro on board 07/24 Lasix discontinued 07/25 resume Torsemide PO tomorrow 07/26 Torsemide increased to 40 mg p.o. daily per nephro Monitor renal function and potassium closely Recent Fall and Right Femur Fracture S/P intertrochanteric nail Currently at [facility] for rehab PT/OT eval Fall precautions Continue fentanyl patch for pain Chronic Diastolic CHF Severe Tricuspid Regurgitation Hx of severe mitral regurg s/p Mitral Clip -- now euvolemic Lasix discontinued TorsemideResumed at increased dose to 40 mg daily Recent postop anemia Hgb: 10.8. Improved from 9.5 on 07/05/2024. Had low of 6.8 on 05/26/2024 and received 2 units PRBC during that hospitalization Continue iron supplement History mild Transaminitis: AST 66, alk phos: 216. Around patient's recent levels RADHA, Nocturnal Hypoxia: Continue baseline 2L O2 HS. DM II Diet-controlled. A1c was 6.9% on 03/24/24 Hypothyroidism: Continue levothyroxine DVT Prophylaxis SCDs PCU DNR/DNI as per discussion with pt Follows with Dr Calvo for routine care Admission and Anticipated Discharge Date Admission Date: July 15, 2024 Subjective Follow-up for sepsis, pneumonia, MSSA bacteremia, UTI, etc. Seen resting in bed, comfortable, not in distress, with spirits States she continues to feel improved overall Breathing continues to improve Less cough No chest pain, palpitations, dizziness No other new symptoms Review of Systems Review of Systems: all noted and negative except for above Physical Exam Physical Exam: General- oriented x 3, not in distress, speaks in sentences with no effort or accessory muscle use Eyes- anicteric Neck- no JVD Lungs- Mild rhonchi bilaterally, intermittent mild wheeze Heart- normal rate, regular rhythm; no murmurs Abdomen- normal bowel sounds, nondistended, soft, nontender Extremities- no pretibial edema, no calf tenderness Neuro- alert, oriented x 3; no gross focal neurologic deficits Skin- warm & dry Results & Data Results & Data Vital Signs (Past 12 Hours) Vital Signs Temp Pulse Resp BP Pulse Ox O2 Del Method 07/26/24 15:00 36.7 C 71 18 117/68 96 Room Air 07/26/24 14:52 70 16 98 Room Air 07/26/24 11:34 67 16 97 Room Air 07/26/24 11:30 36.8 C 67 19 109/60 97 Room Air 07/26/24 07:56 Room Air 07/26/24 07:45 36.3 C L 68 19 111/64 98 Room Air 07/26/24 07:14 76 16 96 Room Air all noted and reviewed including below
[2024-07-27 08:17] VITALS: TEMP 98.1
[2024-07-27 10:58] VITALS: O2SAT 96
--- NOTE | 2024-07-27 11:55 | Discharge Summary ---
Discharge Summary Date of Service July 27, 2024 Principal Dx & Hospital Course #1 = Principal Diagnosis (1) Acute hypoxic respiratory failure: per previous hospitalist notes with addendum: (1) Acute UTI: (2) Sepsis: (3) Confusion: (4) Persistent atrial fibrillation with rapid ventricular response: (5) Weakness: (6) Acute respiratory failure: Plan: Patient is 83 year old female with PMH DM II, CKD III, hypothyroidism, polyneuropathy, PVD, HLD, RADHA, moderate persistent asthma, nocturnal hypoxemia, COPD, paroxysmal atrial fibrillation s/p Watchman procedure, sick sinus syndrome s/p pacemaker placement, pulmonary hypertension, chronic diastolic CHF, left carotid artery aneurysm, aortic atherosclerosis, severe tricuspid regurgitation, s/p mitral valve clip for severe mitral regurgitation, GERD, history of TIA and others listed below presented to ER for weakness today. Sepsis Pneumonia Human metapneumovirus COPD/asthma exacerbation, Acute hypoxic respiratory failure Metabolic encephalopathy, secondary to above, now resolved UTI Bacteremia, MSSA In ER T: 38.9C, P: 136, R: 25, BP 149/97, 89% on room air up to 94% on 2 L nasal cannula WBC: 19. Lactate WNL. procalcitonin: 0.3 BioFire respiratory panel:+human metapneumovirus UA:3+leuk esterase, 4+bacteria, >50 WBC CXR: Focus of vague groundglass density in the right lung most concerning for pneumonia including viral etiologies. CT head: no acute intracranial findings Urine culture positive for E.coli In ER given 1000mL NSS, cefepime, 1 g Tylenol IV After IVF patient reassessed and HR: 129, R: 20, BP 117/69, 96% on 2 L via nasal cannula. Lungs with diffuse wheezing throughout, irregularly irregular per auscultation, rate 128, brisk capillary refill, patient alert and oriented x 3 Blood cultures - positive for Staph, not MRSA - repeat blood cultx so far negative. Pt already on cefepime, follow final cultx results. ID consulted - obtained TTE - no vegetations seen. Review of patient's allergy list has Keflex and penicillin as allergy. Per chart review patient received cefazolin last month postop. She received cefepime in ER on current admission Cefepime, doxycycline Mucinex, Xopenex nebs -- repeat blood culture: negative 07/22: remains on room air still has some rhonchi but improving confirmed adverse reaction to Prednisone: hives continue nebs, IS and FV continue Cefazolin 07/24 still having some rhonchi add Pulmicort switch back to Cefepime 07/25 Rhonchi and wheeze improving Continue Pulmicort twice daily Continue cefepime IVFor MSSA bacteremia and E. coli UTI--> Will discuss with ID regarding antibiotic duration upon discharge Continue other regimen 07/27 doing better still has some rhonchi but improved continue Pulmicort, Xopenex, Anoro Ellipta Cefepime IV x 2 more days to complete 14 day course Incentive spirometry and flutter valve Persistent atrial fibrillation with rapid ventricular response Not on anticoagulation secondary to history of GIB in past and is s/p Watchman S/P Watchman Procedure SSS s/p PPM H/O of LV thrombus HR in 130s in ER. Patient without palpitations, SOB, CP and is mentating normally. Suspect secondary to underlying illness and dehydration which treating as above and with IVF. Resume home metoprolol succinate Troponin: 29 Trend troponin 03/21/2024 echo: EF: 55-60%, s/p mitral valve clip, mild mitral regurgitation, moderate mitral stenosis, left atrium severely dilated, moderate-severe tricuspid regurgitation magnesium: 1.8. Will replace to keep at or above 2.0 If uncontrolled consider cardiology consult Continued to be in Afib w/ RVR given IV metoprolol, consulted cardiology - added digoxin, HR now much improved 07/27 stable continue Metoprolol XL TIFFANY on CKD III Recent TIFFANY with peak creatinine of 3 on 05/28/2024 had trended down to 1.0 on discharge on 06/02/2024 BUN: 43. Cr: 1.4 (was 1.4 on 07/05/2024) IVF Avoid nephrotoxic agents when possible Cr1.77 -> nephrology consulted - initially started torsemide 10 daily -> switched to IV lasix -- continue IV Lasix + potassium monitor crea 07/22 continue Lasix IV Nephro on board 07/24 Lasix discontinued 07/25 resume Torsemide PO tomorrow 07/27 Torsemide increased to 40 mg p.o. daily per nephro Monitor renal function and potassium closely Recent Fall and Right Femur Fracture S/P intertrochanteric nail Currently at [facility] for rehab PT/OT eval Fall precautions Continue fentanyl patch for pain Chronic Diastolic CHF Severe Tricuspid Regurgitation Hx of severe mitral regurg s/p Mitral Clip -- now euvolemic Lasix discontinued Torsemide Resumed at increased dose to 40 mg daily Recent postop anemia Hgb: 10.8. Improved from 9.5 on 07/05/2024. Had low of 6.8 on 05/26/2024 and received 2 units PRBC during that hospitalization Continue iron supplement History mild Transaminitis: AST 66, alk phos: 216. Around patient's recent levels RADHA, Nocturnal Hypoxia: Continue baseline 2L O2 HS. DM II Diet-controlled. A1c was 6.9% on 03/24/24 Hypothyroidism: Continue levothyroxine DVT Prophylaxis SCDs DNR/DNI as per discussion with pt Follows with Dr Calvo for routine care Notes For Next Care Provider Medication Changes From Visit per med rec Admission HPI Per Admitting Provider Patient is 83 year old female with PMH DM II, CKD III, hypothyroidism, polyneuropathy, PVD, HLD, RADHA, moderate persistent asthma, nocturnal hypoxemia, COPD, paroxysmal atrial fibrillation s/p Watchman procedure, sick sinus syndrome s/p pacemaker placement, pulmonary hypertension, chronic diastolic CHF, left carotid artery aneurysm, aortic atherosclerosis, severe tricuspid regurgitation, s/p mitral valve clip for severe mitral regurgitation, GERD, history of TIA and others listed below presented to ER for weakness today. History obtained from inpatient chart review, patient and patient's son at bedside. Per inpatient chart review Patient with recent hospital admission 05/24/2024-06/02/2024 for right femur fracture after fall, s/p intertrochanteric nail, post-op course was complicated by postoperative blood loss anemia, hypotension, TIFFANY, A-fib with RVR. Cardiology and nephrology was consulted. Patient's metoprolol was increased, torsemide had been held but was instructed to be resumed upon discharge, patient received 2 units PRBC. She was discharged to [facility] for rehab. Patient reports is still at rehab and has been doing well and participating in physical therapy. She reports continued thigh pain and is now on fentanyl patch with some relief. Patient son states today he visited his mother on the morning and she seemed very sleepy and he thought seemed like she was short of breath. He reports returned in the afternoon today and found patient to be lethargic and short of breath. Staff evaluated patient and found to be febrile and was sent to ER for further evaluation. Patient's son reports since in ER patient is more alert and oriented than she was when he saw her earlier in the day. Currently patient reports feeling better than she did earlier but is still feeling tired and weak. She reports has had coughing today and feels a little bit wheezy. Reports chronic rhinorrhea and history chronic sinusitis and denies any worsening rhinorrhea or facial tenderness. Denies any noted palpitations, shortness of breath or chest pain. She admits decreased appetite today and had poor oral intake today. Denies abdominal pain. Denies N/V/D/C, [place], dizziness, abdominal pain, extremity edema, rashes, urinary symptoms. Admission Exam Per Admitting Provider General: +ill appearing, no apparent distress, WDWN Head: normocephalic, atraumatic Eyes: PERRL, EOM's intact, conjunctiva non-injected, anicteric ENT: normal inspection external ears, nose, mucous membranes dry Neck: supple, trachea midline Lungs: no respiratory distress on current 2L via NC, +diffuse wheezing throughout CV: irregularly irregular, rate 126, no pretibial edema Abd: normal BS, soft, non-tender Ext: no cyanosis, no calf tenderness Neuro: A&O x 3, no focal deficits noted, normal affect Skin: warm, dry Discharge Exam General- oriented x 3, not in distress, speaks in sentences with no effort or accessory muscle use Eyes- anicteric Neck- no JVD Lungs- Mild rhonchi bilaterally, intermittent mild wheeze Heart- normal rate, regular rhythm; no murmurs Abdomen- normal bowel sounds, nondistended, soft, nontender Extremities- no pretibial edema, no calf tenderness Neuro- alert, oriented x 3; no gross focal neurologic deficits Skin- warm & dry Updated Medication List Medication Instructions Recorded Confirmed Type montelukast 10 mg tablet 10 mg PO PM 04/08/19 07/15/24 History atorvastatin 20 mg tablet 20 mg PO QAM 11/26/21 07/15/24 History cholecalciferol (vitamin D3) 50 100 mcg PO QAM 11/26/21 07/15/24 History mcg (2,000 unit) capsule (Vitamin D3) levalbuterol tartrate 45 1 puff inhalation Q4H PRN 08/07/22 07/15/24 History mcg/actuation aerosol inhaler Shortness Of Breath Or Wheezing (Xopenex HFA) ipratropium bromide 21 mcg (0.03 2 spray intranasal DAILY PRN 12/06/22 07/15/24 History %) nasal spray rhinorrhea allopurinol 300 mg tablet 300 mg PO HS 08/14/23 07/15/24 History levothyroxine 175 mcg tablet 175 mcg PO DAILYBB 03/21/24 07/15/24 History fentanyl 12 mcg/hr transdermal 12 mcg transdermal Q3D 03/23/24 07/15/24 History patch benzonatate 100 mg capsule 100 mg PO Q6H PRN cough #20 caps 04/15/24 07/15/24 Rx guaifenesin 600 mg tablet, 600 mg PO Q12 PRN cough #20 tabs 04/15/24 07/15/24 Rx extended release 12 hr (Mucinex) buspirone 5 mg tablet 5 mg PO AMHS 05/13/24 07/15/24 History acetaminophen 500 mg tablet 500 mg PO Q8 PRN Fever Or Pain 07/15/24 07/15/24 History aspirin 81 mg tablet,delayed 81 mg PO QAM 07/15/24 07/15/24 History release ferrous sulfate 325 mg (65 mg 325 mg PO QAM 07/15/24 07/15/24 History iron) tablet,delayed release glycopyrrolate 9 mcg-formoterol 2 puff inhalation BID 07/15/24 07/15/24 History 4.8 mcg HFA aerosol inhaler (Bevespi Aerosphere) melatonin 5 mg tablet 5 mg PO HS 07/15/24 07/15/24 History metoprolol succinate 25 mg 25 mg PO HS 07/15/24 07/15/24 History tablet,extended release 24 hr metoprolol succinate 25 mg 37.5 mg PO QAM 07/15/24 07/15/24 History tablet,extended release 24 hr oxycodone 5 mg tablet 5 mg PO Q6H PRN Severe Pain (Scale 07/15/24 07/15/24 History Score 7-10) pantoprazole 40 mg tablet,delayed 40 mg PO AMHS 07/15/24 07/15/24 History release potassium chloride 10 mEq 10 meq PO BID 11/21/24 11/21/24 History tablet,extended release sertraline 150 mg capsule 150 mg PO QAM 07/15/24 07/15/24 History torsemide 10 mg tablet 20 mg PO DAILY 07/15/24 07/15/24 History L.acidop,casei,lactis,rham-B.lact,maria g 1 cap PO DAILY 30 days #30 caps 07/27/24 Rx 625 mg (10 billion cell) capsule (Advanced Probiotic) budesonide 0.5 mg/2 mL suspension 0.5 mg (2 mL) NEB BIDR 10 days #60 07/27/24 Rx for nebulization mL guaifenesin 600 mg tablet, 600 mg PO Q12 10 days #20 tabs 07/27/24 Rx extended release 12 hr (Mucinex) levalbuterol HCl 1.25 mg/3 mL 1.25 mg (3 mL) NEB QIDR 10 days 07/27/24 Rx solution for nebulization #90 mL metoprolol succinate 50 mg 50 mg PO BID 30 days #60 tabs 07/27/24 Rx tablet,extended release 24 hr torsemide 20 mg tablet 40 mg (2 x 20 mg) PO QAM 30 days 07/27/24 Rx #60 tabs umeclidinium 62.5 mcg-vilanterol 1 inh inhalation DAILY 30 days #60 07/27/24 Rx 25 mcg/actuation powdr for ea inhalation (Anoro Ellipta) Hospital Stay Data Consultations 07/15/24 17:17 ED Decision to Admit Stat 07/16/24 10:23 Consult Cardiology Routine 07/18/24 07:30 Consult Nephrology Routine 07/18/24 13:17 Consult Infectious Diseases Routine Diagnostic Imagining Performed CXR 07/15/24 16:10 CT head/brain wo con Stat EXAM: CT Head Without Intravenous Contrast INDICATION: Fever. Altered mental status. TECHNIQUE: Axial computed tomography images of the head/brain without intravenous contrast. Sagittal and/or coronal reformats are provided. Sagittal and coronal reformatted images were created and reviewed. This CT exam was performed using one or more of the following dose reduction techniques: automated exposure control, adjustment of the mA and/or kV according to patient size, and/or use of iterative reconstruction technique. COMPARISON: 03/07/2024 FINDINGS: Limitations: None. Brain and extra-axial spaces: There is age appropriate cortical atrophy and chronic ischemic periventricular white matter hypodensity. No acute infarct, hemorrhage or mass noted. Bones/joints: No acute changes. Soft tissues: No significant abnormality noted. Vasculature: No acute abnormality noted. Sinuses: Stable opacified maxillary sinuses. Mastoid air cells: No mastoid effusion. Orbits: No significant abnormality noted. IMPRESSION: 1. Cerebral atrophy. No acute changes. 2. Stable chronic bilateral maxillary sinusitis. ACT 112: Negative or not required by law. Electronically signed by Yeimi Aponte 07-15-2024 4:48 PM CXR: EXAM: Radiograph of the Chest 1 View INDICATION: Fever. TECHNIQUE: Frontal view of the chest. COMPARISON: 05/28/2024 FINDINGS: Lungs and pleural spaces: There is an approximate 3.1 x 3.7 cm groundglass infiltrate in the right midlung. There was some vague density in this area previously but is now more defined. Stable mild scarring in the bases. No pleural effusion or pneumothorax. Heart: Stable cardiomegaly and intact atrial and ventricular pacing leads. Mediastinum: Normal contour. Bones/joints: No fracture, erosion or dislocation. Soft tissues: No abnormality noted. No radiopaque foreign body noted. Upper abdomen: No abnormality noted. IMPRESSION: Focus of vague groundglass density in the right lung most concerning for pneumonia including viral etiologies. ACT 112: Negative or not required by law. Electronically signed by Yeimi Aponte 07-15-2024 5:14 PM Pending Results Patient Have Any Pending Studies at Discharge: No Discharge Instructions Given to Patient (Per Discharging Provider) Please refer to accompanying hospital discharge summary for further details. PLEASE CALL YOUR PRIMARY CARE PHYSICIAN OR RETURN TO THE ER IF WITH WORSENING OF SYMPTOMS, INCLUDING Cough, shortness of breath, fevers or chills, chest pain, abdominal pain, problems with urination, etc. FOLLOW UP WITH PRIMARY CARE PHYSICIAN in 1 week. Total Time Total Time Spent Total Time Spent (In Minutes): 50 minutes
[2024-07-27 12:22] VITALS: BP 111/68
--- NOTE | 2024-07-27 12:35 | Nephrology Progress Note ---
Date of Service July 27, 2024 Assessment & Plan (1) Acute kidney injury superimposed on stage 3b chronic kidney disease: Plan: Baseline creatinine is in early to mid 1.0's, Creatinine plateau'd at 1.6 yesterday >> she is at / near baseline. She was found to be in AF and hypotensive, She received IV fluid ( 1100 on 07/15 and 3400 on 07/17). - continue 07/24 restarted torsemide 40 mg daily >> will likely need lower standing torsemide dose and will trial 30 mg daily torsemide >K supplement at d/c - Daily weight w/ Input and output - Daily BMP Will sign off; pls call if ? NEPHRO D/C INSTRUCTIONS -d/c on torsemide 30 mg daily -discharge on potassium 10 mEq every Friday -pls get bmp every friday/ and weekly hemoglobin at [facility] and call Dr Green if concerns about creatinine -daily standing weight and log these please; bring log to follow-up appointments with Nephrology, Cardiology, PCP - continue low-sodium diet and start 1.5 L fluid limit -continue incentive spirometry and flutter valve multiple times daily -hospital d/c appt w/ [facility] 2 wks after rehab hospital d/c with bmp, hgb, t sat, ferritin, phos, ACR , uacm all to be ordered by nephro nurse and to be obtained no more than 72 hours before appointment Discharge recommendations particularly regarding diuretic and potassium dosing as well as dietary restrictions, recommendations for standing weight and follow- up appointments and lab monitoring reviewed with Dr. Mcghee In detail via tiger text. We are in agreement (2) Diastolic congestive heart failure: Plan: improved hypervolemia on 40 > 30 mg daily torsemide Monitor daily weight and urine output Admission and Anticipated Discharge Date Admission Date: July 15, 2024 Subjective finished her lunch tray, overall feeling well. Denies shortness of breath. Has been up to the bathroom and in and out of bed without exertional dyspnea. Denies nausea vomiting edema new or worrisome voiding concerns. For discharge to [facility] Review of Systems 2 Review of Systems: All systems reviewed & are unremarkable except as noted in Subjective Physical Exam 2 Constitutional: well developed, well nourished, + frail appearing and cooperative; no acute distress Eyes: EOM intact bilaterally ENMT: Mouth: + dry oral mucous membranes Respiratory: normal respiratory effort and + cough (thick, with inspiration only) Auscultation: + diminished lung sounds and + crackles (fine bibasilar) Cardiovascular: Rate/Rhythm: regular rate and regular rhythm Extremities: + edema (trace L>R BLE) Musculoskeletal: Extremities: strength 5/5 throughout Skin: no rashes, warm and dry Psychiatric: Orientation: alert and oriented x 3 Results & Data Vital Signs (Past 12 Hours) Vital Signs Temp Pulse Pulse Pulse Pulse Resp BP 07/27/24 11:50 36.7 C 72 19 07/27/24 11:47 36.7 C 92 H 68 82 16 126/73 07/27/24 10:57 68 16 07/27/24 10:18 07/27/24 10:14 82 07/27/24 08:17 36.7 C 82 20 07/27/24 06:50 83 16 07/27/24 02:20 36.8 C 77 20 BP Pulse Ox O2 Del Method 07/27/24 11:50 111/68 96 Room Air 07/27/24 11:47 112/63 96 07/27/24 10:57 96 Room Air 07/27/24 10:18 Room Air 07/27/24 10:14 07/27/24 08:17 112/63 93 Room Air 07/27/24 06:50 94 Room Air 07/27/24 02:20 94/58 L 95 Room Air Laboratory Results 07/24/24 07:58 07/25/24 08:29
[2024-07-27 15:37] VITALS: PULSE 71
[2024-07-27 15:49] VITALS: RESP 18
== END 2024-07-27 17:05 | DRG 871 ==
LOC: ED 16:00 → 4W 17:53 → SUATTDRO 17:53 → 4W 19:58

== ENCOUNTER 2024-10-12 19:15 | Inpatient (IN) ==
--- NOTE | 2024-10-12 19:47 | Emergency Department Note ---
Impression & Plan Sepsis, Acute dehydration, Acute UTI, Acute metabolic encephalopathy, Atrial flutter with rapid ventricular response ED Provider Note NAME: LORI MORALES AGE: 84 SEX: F : 1940 ARRIVES VIA: Ambulance INFORMANT: Patient, son ED PROVIDER(S): Leandro Aceves MD CHIEF COMPLAINT: Confusion MEDICAL DECISION MAKING: Patient presents due to concern for confusion. IV was established and blood work was obtained along with protocols. Patient was ordered IV fluids 500 cc and did judicious hydration in light of the patient's prior history of CHF. Patient was ordered IV Ofirmev and I did ask nursing to place a temp sensing Smith to evaluate core temperature. The patient was noted to be febrile. Patient was ordered empiric antibiotic cefepime based on the prior history. I did speak with the pharmacist who stated that staff would be covered by cefepime. The patient did have 1 blood culture bottle that was positive for this though this was thought to be a possible contaminant in the past. Patient was ordered this subsequent 500 cc boluses. The patient did have softer blood pressures. Concern for possible diastolic dysfunction as the patient does have a known history of A-fib. Patient was ordered 1 IV dose of Lopressor 5 mg. Patient was subsequently given additional IV fluids. Patient was ordered total of 2 L. Initial lactate normal. The patient's white count is 17 with a normal H&H and platelet count. The patient's kidney function with a crit of 1.6. Patient's creatinine is at baseline. Initial troponin is 56. Repeat 74. Pro- Celio 1.5. The patient was reassessed several times. The patient is easily arousable. Ketones present. I did perform a bedside [id number] ultrasound. No evidence of's pericardial effusion. IVC with respiratory variability. Scant B-lines noted in the left lung carlin. I did speak with the on-call tile setter apprentice and explained the situation and that the patient did have a tenuous blood pressure even after IV fluid administration and IV Lopressor. He is agreeable for loading the patient with 250 mics of digoxin. This was ordered. BioFire negative. Patient's chest x-ray did not show evidence of obvious pneumonia. Patient was discussed with the on-call hospital service Dr. Parker. The patient is DNR/DNI per son at bedside. Patient was admitted to medicine service. Critical Care: I have personally spent 95minutes of critical care time in direct management of this patient. This includes bedside care, interpretation of diagnostic studies, and testing, discussion with consultants, patient, and family members, and other require inpatient management activities. This 95 minutes is in excess of all separately billable procedures. Procedures: Limited Point of Care Cardiac Ultrasound performed by me: Indication: Tachycardia Findings: Limited echocardiography revealed no significant pericardial fluid. Wall motion appeared decreased. HR 140s. Additional findings: B-lines noted in the left lung field not so much evident in the right lung carlin. IVC with respiratory variability Impression: No evidence of tamponade Discussion w/ other healthcare providers: Dr. Márquez cardiology Dr. Parker inpatient medicine service Prior /Outside records reviewed: I reviewed part of a discharge summary from July 27, [address] Mcghee. Patient admitted for acute hypoxic respiratory failure acute UTI sepsis confusion A-fib with RVR. Differential diagnosis: Dehydration, UTI, pneumonia, metabolic derangment, electrolyte abnormalities, hypovolemia, anemia, cellulitis among others were considered. Diagnostics, as interpreted by me: ECG: Possible atrial flutter with variable block ventricular rate 157 normal QRS duration normal axis no ST elevations. Cardiac monitoring: An order was placed for continuous cardiac monitoring. The monitor shows a rate of 143 with tachycardic and irregular irregular rhythm. Patient was placed on pulse oximetry Medical decision rules: None Imaging studies: I informally interpreted the patient's chest x-ray without obvious pneumonia with formal report to follow. HPI: Patient presents due to concern for lethargy and confusion. The patient reportedly seemed a bit more "ornery" per the son at bedside in the last 2 days or so. Today the patient was unaware as to where she was. He does state this seems very similar to when she had a UTI back in June or July. No reported falls or trauma. The patient does not take blood thinners. Known history of A-fib and is not on any blood thinners that she had a prior watchman's procedure. Patient reportedly did have some vomiting today. She denies any fevers or chills. No reported fever at the facility. She does reside at [facility]. PAST MEDICAL HISTORY: See Below PAST SURGICAL HISTORY: See Below SOCIAL HISTORY: See Below HOME MEDICATIONS: See Below ALLERGIES: See Below VITALS: See Below PHYSICAL EXAMINATION: GENERAL: Ill in appearance, wearing glasses. EYE EXAM: Normal conjunctiva. PERRL, no anisocoria and EOM's grossly intact w/o pain. OROPHARYNX: Dry mucus membranes, grossly normal dentition. NECK: Trachea midline, no stridor. Supple, no nuchal rigidity, no adenopathy, non-tender. No signs of meningismus. FROM of the neck with good chin to chest and neck extension. LUNGS: Clear to auscultation. Normal chest wall mechanics. HEART: Tachycardic and irregular irregular, no MRG. ABDOMEN: Abdomen soft, non-tender, no masses, no rebound or guarding. BACK: No CVA TTP. SKIN: No rashes and no bruising. UPPER EXTREMITIES: Upper extremities are grossly normal. LOWER EXTREMITIES: Grossly normal, no edema. NEURO EXAM: A&O x3, cranial nerves II-XII grossly intact, normal speech, moves all 4 extremities. Past Med/Surg History Problem List Atrial flutter with rapid ventricular response (Acute) Acute metabolic encephalopathy (Acute) Acute UTI (Acute) Acute dehydration (Acute) Sepsis (Acute) Closed right hip fracture Acute hypoxic respiratory failure Acute encephalopathy Infection due to human metapneumovirus (hMPV) Complicated UTI (urinary tract infection) MSSA bacteremia Acute kidney injury superimposed on stage 3b chronic kidney disease Diastolic congestive heart failure ASCVD (arteriosclerotic cardiovascular disease) Acute respiratory failure Sepsis (Acute) Confusion (Acute) Persistent atrial fibrillation with rapid ventricular response Fall (Acute) Closed intertrochanteric fracture of right hip (Acute) Fracture of right femur Transaminitis Acute dehydration (Acute) TIFFANY (acute kidney injury) (Acute) Vomiting (Acute) Weakness (Acute) 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 difficile diarrhea (Acute) Adult failure to thrive (Acute) Generalized weakness (Acute) S/P mitral valve clip implantation Presence of Watchman left atrial appendage closure device CAD (coronary artery disease) Cardiac pacemaker in situ (Acute) CKD (chronic kidney disease) (Acute) Anemia (Acute) TIA (transient ischemic attack) (Acute) Depression Hypothyroidism RADHA (obstructive sleep apnea) SSS (sick sinus syndrome) Chronic diastolic (congestive) heart failure CKD (chronic kidney disease), stage III TIA (transient ischemic attack) Anemia (Acute) Leukocytosis (Acute) Chronic anticoagulation (Acute) Acute renal insufficiency Severe mitral insufficiency Acute on chronic diastolic heart failure Paroxysmal atrial fibrillation Stroke-like symptoms (Acute) Acute on chronic anemia COVID-19 (Acute) COVID-19 (Acute) History of tobacco abuse Asthma, moderate persistent (Chronic) Meniere disease (Chronic) Atrial fibrillation and flutter (Chronic) History of laminectomy (Chronic) H/O sinus surgery (Chronic) Hx of neck surgery (Chronic) History of repair of left rotator cuff (Chronic) Medical History Generalized weakness Pericardial effusion Low back pain Angio-edema Nausea Leukocytosis Near syncope Hypotension Dehydration TIFFANY (acute kidney injury) Near syncope Elevated brain natriuretic peptide (BNP) level Pneumonia Atrial flutter Carotid artery aneurysm Prolonged QT interval Atrial fibrillation with RVR DM type 2 (diabetes mellitus, type 2) Encounter for pre-operative examination Cholelithiasis Cholecystitis Chest pain at rest Pulmonary emphysema Osteoarthritis of right knee HTN (hypertension) Surgical History History of hysterectomy History of cholecystectomy Family History Father Diabetes Social History Smoking Status: Unknown if ever smoked Tobacco Type: Cigarettes packs per day: 1.5; Cigarettes Per Day: 30; Second Hand Exposure: No; Do You Dip or Chew Tobacco: No; Hx Alcohol Use: No Hx Substance Use: No Preferred Language: Ukrainian Communication Ability: Impaired 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 cephalexin Allergy Intermediate Rash/Hives/ Verified 10/12/24 22:01 Itching. furosemide Allergy Intermediate Rash/Hives/ Verified 10/12/24 22:01 Itching. gabapentin Allergy Intermediate Rash/Hives/ Verified 10/12/24 22:01 Itching. pregabalin Allergy Intermediate Rash/Hives/ Verified 10/12/24 22:01 Itching. meclizine Allergy Unknown Unknown Verified 10/12/24 22:01 methylprednisolone Allergy Unknown Rash/Hives/ Verified 10/12/24 22:01 Itching. Penicillins Allergy Unknown Unknown. Verified 10/12/24 22:01 prednisone Allergy Unknown Rash/Hives/ Verified 10/12/24 22:01 Itching. vancomycin Allergy Unknown Jodi Verified 10/12/24 22:01 syn. . nickel Allergy Unknown Verified 10/12/24 22:01 dexamethasone AdvReac Intermediate Steroid Verified 10/12/24 22:01 psychosis. Home Meds Home Medications Medication Instructions Recorded Confirmed montelukast 10 mg tablet 10 mg PO PM 04/08/19 10/12/24 atorvastatin 20 mg tablet 20 mg PO QPM 11/26/21 10/12/24 levalbuterol tartrate 45 1 puff inhalation Q4H PRN 08/07/22 10/12/24 mcg/actuation aerosol inhaler Shortness Of Breath Or Wheezing (Xopenex HFA) ipratropium bromide 21 mcg (0.03 2 spray intranasal DAILY PRN 12/06/22 10/12/24 %) nasal spray rhinorrhea allopurinol 300 mg tablet 300 mg PO HS 08/14/23 10/12/24 levothyroxine 175 mcg tablet 175 mcg PO DAILYBB 03/21/24 10/12/24 buspirone 5 mg tablet 5 mg PO AMHS 05/13/24 10/12/24 acetaminophen 500 mg tablet 500 mg PO Q8 PRN Fever Or Pain 07/15/24 10/12/24 aspirin 81 mg tablet,delayed 81 mg PO QAM 07/15/24 10/12/24 release ferrous sulfate 325 mg (65 mg 325 mg PO QAM 07/15/24 10/12/24 iron) tablet,delayed release glycopyrrolate 9 mcg-formoterol 2 puff inhalation BID 07/15/24 10/12/24 4.8 mcg HFA aerosol inhaler (Bevespi Aerosphere) oxycodone 5 mg tablet 5 mg PO Q6H PRN PAIN 9-10 07/15/24 10/12/24 pantoprazole 40 mg tablet,delayed 40 mg PO AMHS 07/15/24 10/12/24 release sertraline 150 mg capsule 150 mg PO QAM 07/15/24 10/12/24 carbamide peroxide 6.5 % ear drops 10 drp OTR HS 10/12/24 10/12/24 cholecalciferol (vitamin D3) 100 100 mcg PO QAM 10/12/24 10/12/24 mcg (4,000 unit) tablet diclofenac sodium 1 % topical gel 4 g topical QID 10/12/24 10/12/24 (Voltaren Arthritis Pain) fentanyl 12 mcg/hr transdermal 1 patch transdermal [id number] 10/12/24 10/12/24 patch melatonin 10 mg tablet 10 mg PO HS 10/12/24 10/12/24 ondansetron 4 mg disintegrating 4 mg PO Q6H PRN Nausea And Vomiting 10/12/24 10/12/24 tablet potassium chloride 10 mEq 10 meq PO UD 10/12/24 10/12/24 tablet,extended release promethazine 25 mg/mL injection 12.5 mg IM Q8 PRN NAUESA/VOMITING 10/12/24 10/12/24 solution saliva stimulant comb. no.3 2 spray mucous membrane .EVERY 1 10/12/24 10/12/24 (Biotene Moisturizing Mouth HOUR PRN Dry Mouth mucosal spray) torsemide 10 mg tablet 30 mg PO UD 10/12/24 10/12/24 torsemide 40 mg tablet 40 mg PO UD 10/12/24 10/12/24 Previous Rx's Medication Instructions Recorded potassium chloride 10 mEq 10 meq PO UD #20 tabs 07/27/24 tablet,extended release Results & Data (ED) Vital Signs Vital Signs - 24 hr 10/12/24 19:32 10/12/24 19:32 10/12/24 19:34 Temperature 37.0 C Temperature Source Oral Pulse Rate 161 H 144 H Pulse Rate [Right Finger] 161 H Pulse Rhythm Regular Pulse Rhythm [Right Finger] Regular Pulse Strength Normal Pulse Strength [Right Finger] Normal Respiratory Rate 15 15 Respiratory Effort / Characteristics Non-Labored Non-Labored Respiratory Depth Normal Normal Respiratory Pattern Regular Regular Blood Pressure 154/101 H Blood Pressure [Right Arm] 154/101 H Blood Pressure Mean 118 Blood Pressure Mean [Right Arm] 118 Blood Pressure Position Lying Blood Pressure Position [Right Arm] Lying Pulse Oximetry 92 92 Oxygen Delivery Method Room Air Room Air Oxygen Flow Rate Sepsis Recent Fever Within 48 Hours No Sepsis New/Unexplained Change in Mental Status No Sepsis Action Taken by Nursing No Action Required Oxygen Flow Rate - Titration Pulse Oximetry Post Tiitration 10/12/24 19:52 10/12/24 20:15 10/12/24 20:38 Temperature 38.9 C H Temperature Source Core Pulse Rate Pulse Rate [Right Finger] 143 H 141 H Pulse Rhythm Regular Pulse Rhythm [Right Finger] Regular Regular Pulse Strength Pulse Strength [Right Finger] Normal Normal Respiratory Rate 20 24 Respiratory Effort / Characteristics Non-Labored Non-Labored Respiratory Depth Normal Normal Respiratory Pattern Regular Regular Blood Pressure Blood Pressure [Right Arm] 128/65 121/60 Blood Pressure Mean Blood Pressure Mean [Right Arm] 86 80 Blood Pressure Position Blood Pressure Position [Right Arm] Lying Pulse Oximetry 92 93 92 Oxygen Delivery Method Room Air Room Air Room Air Oxygen Flow Rate Sepsis Recent Fever Within 48 Hours Sepsis New/Unexplained Change in Mental Status Sepsis Action Taken by Nursing Oxygen Flow Rate - Titration Pulse Oximetry Post Tiitration 10/12/24 20:59 10/12/24 21:04 10/12/24 22:03 Temperature 39.0 C H 39.0 C H 38.5 C H Temperature Source Core Core Core Pulse Rate Pulse Rate [Right Finger] 139 H 138 H 142 H Pulse Rhythm Pulse Rhythm [Right Finger] Regular Regular Regular Pulse Strength Pulse Strength [Right Finger] Normal Normal Normal Respiratory Rate 22 19 Respiratory Effort / Characteristics Non-Labored Non-Labored Non-Labored Respiratory Depth Normal Normal Normal Respiratory Pattern Regular Regular Regular Blood Pressure Blood Pressure [Right Arm] 121/60 101/55 L 109/54 L Blood Pressure Mean Blood Pressure Mean [Right Arm] 80 70 72 Blood Pressure Position Blood Pressure Position [Right Arm] Lying Lying Lying Pulse Oximetry 91 93 Oxygen Delivery Method Room Air Room Air Nasal Cannula Oxygen Flow Rate 2 Sepsis Recent Fever Within 48 Hours Sepsis New/Unexplained Change in Mental Status Sepsis Action Taken by Nursing Oxygen Flow Rate - Titration Pulse Oximetry Post Tiitration 10/12/24 22:04 10/12/24 22:27 10/12/24 22:27 Temperature Temperature Source Pulse Rate 142 H Pulse Rate [Right Finger] 133 H Pulse Rhythm Pulse Rhythm [Right Finger] Regular Pulse Strength Pulse Strength [Right Finger] Normal Respiratory Rate 17 Respiratory Effort / Characteristics Non-Labored Respiratory Depth Normal Respiratory Pattern Regular Blood Pressure 109/54 L Blood Pressure [Right Arm] 98/46 L Blood Pressure Mean Blood Pressure Mean [Right Arm] 63 Blood Pressure Position Blood Pressure Position [Right Arm] Lying Pulse Oximetry 93 88 L Oxygen Delivery Method Nasal Cannula Room Air Nasal Cannula Oxygen Flow Rate 2 0 Sepsis Recent Fever Within 48 Hours Sepsis New/Unexplained Change in Mental Status Sepsis Action Taken by Nursing Oxygen Flow Rate - Titration 2 Pulse Oximetry Post Tiitration 93 10/12/24 22:43 10/12/24 22:54 10/12/24 23:00 Temperature 37.9 C H Temperature Source Smith Cath ( Temp Sensing) Pulse Rate 124 H Pulse Rate [Right Finger] 128 H 133 H Pulse Rhythm Pulse Rhythm [Right Finger] Regular Irregular Pulse Strength Pulse Strength [Right Finger] Normal Respiratory Rate 18 20 Respiratory Effort / Characteristics Non-Labored Non-Labored Spontaneous Respiratory Depth Normal Normal Respiratory Pattern Regular Regular Blood Pressure 92/57 L Blood Pressure [Right Arm] 91/47 L 89/58 L Blood Pressure Mean Blood Pressure Mean [Right Arm] 61 68 Blood Pressure Position Blood Pressure Position [Right Arm] Lying Lying Pulse Oximetry 94 94 Oxygen Delivery Method Room Air Room Air Oxygen Flow Rate Sepsis Recent Fever Within 48 Hours Sepsis New/Unexplained Change in Mental Status Sepsis Action Taken by Nursing Oxygen Flow Rate - Titration Pulse Oximetry Post Tiitration 10/12/24 23:15 Temperature 37.9 C H Temperature Source Smith Cath ( Temp Sensing) Pulse Rate Pulse Rate [Right Finger] 127 H Pulse Rhythm Pulse Rhythm [Right Finger] Irregular Pulse Strength Pulse Strength [Right Finger] Respiratory Rate 20 Respiratory Effort / Characteristics Non-Labored Spontaneous Respiratory Depth Normal Respiratory Pattern Regular Blood Pressure Blood Pressure [Right Arm] 91/57 L Blood Pressure Mean Blood Pressure Mean [Right Arm] 68 Blood Pressure Position Blood Pressure Position [Right Arm] Lying Pulse Oximetry 93 Oxygen Delivery Method Room Air Oxygen Flow Rate Sepsis Recent Fever Within 48 Hours Sepsis New/Unexplained Change in Mental Status Sepsis Action Taken by Nursing Oxygen Flow Rate - Titration Pulse Oximetry Post Tiitration Home Medications Current Medication List: was personally reviewed by me Laboratory Data Attestation: I reviewed the patient's lab results. 10/12/24 19:25 10/12/24 19:25 Lab Results 10/12/24 10/12/24 10/12/24 Range/Units 19:25 20:07 21:30 WBC 17.91 H (4.8-10.8) K/ul RBC 4.14 L (4.20-5.40) M/uL Hgb 12.9 (12.0-16.0) g/dl Hct 38.6 (37.0-47.0) % MCV 93.2 (80.0-100.0) fL MCH 31.2 (25.0-34.0) pg MCHC 33.4 (32.0-36.0) g/dL RDW Std Deviation 56.8 H (36.4-46.3) fL RDW Coeff of Francisco Javier 16.6 H (11.5-14.5) % Plt Count 221 (130-400) K/uL MPV 11.1 (9.4-12.4) fL Immature Gran % (Auto) 0.4 % Neut % (Auto) 95.9 % Lymph % (Auto) 1.3 % [place] % (Auto) 2.0 % Eos % (Auto) 0.2 % Baso % (Auto) 0.2 % Neut # (Auto) 17.17 H (1.40-6.50) K/uL Lymph # (Auto) 0.24 L (1.20-3.40) K/uL [place] # (Auto) 0.36 (0.11-0.59) K/uL Eos # (Auto) 0.03 (0.00-0.50) K/uL Baso # (Auto) 0.03 (0.00-0.20) K/uL Immature Gran # (Auto) 0.08 (0.01-0.20) K/uL Sodium 140 (136-145) mmol/L Potassium 4.4 (3.5-5.1) mmol/L Chloride 104 (98-107) mmol/L Carbon Dioxide 22 (21-32) mmol/L Anion Gap 14 H (3-11) BUN 37 H (6-23) mg/dl Creatinine 1.61 H (0.6-1.2) mg/dl Est Cr Clr Drug Dosing 24.3 ml/min eGFR 31.37 BUN/Creatinine Ratio 23.0 H (10-20) Glucose 167 H (70-99(Fasting)) mg/dl Lactate 1.6 (0.4-2.0) mmol/L Calcium 10.0 (8.6-10.3) mg/dl Magnesium 1.9 (1.7-2.4) mg/dl Total Bilirubin 0.8 (0.2-1.0) mg/dl Direct Bilirubin 0.2 (0-0.2) mg/dl AST 45 H (13-39) U/L ALT 16 (7-52) U/L Alkaline Phosphatase 209 H (34-104) U/L Troponin I High Sens 56.8 H* 74.7 H* D (0-14) pg/ml Total Protein 7.5 (6.0-8.3) gm/dl Albumin 4.4 (3.4-5.0) gm/dl Procalcitonin 1.52 H (0-0.5) ng/ml Urine Color Yellow Urine Appearance Clear (Clear) Urine pH 5.5 (4.5-7.5) Ur Specific [place] 1.015 (1.000-1.030) Urine Protein Trace H (Negative) Urine Glucose (UA) Negative (Negative) Urine Ketones 1+ H (Negative) Urine Blood 1+ H (Negative) Urine Nitrite Negative (Negative) Urine Bilirubin Negative (Negative) Urine Urobilinogen Negative (Negative) Ur Leukocyte Esterase 1+ H (Negative) Urine WBC (Auto) 0-5 (0-5) /hpf Urine RBC (Auto) 11-20 H (0-2) /hpf U Hyaline Cast (Auto) 0-2 (0-2) /lpf U Epithel Cells (Auto) 6-10 H (0-2) /hpf Urine Bacteria (Auto) None Seen (None Seen) Adenovirus (PCR) Not Detected (NotDetected) B. pertussis DNA (PCR) Not Detected (NotDetected) B.parapertussis DNA PCR Not Detected (NotDetected) C. pneumoniae DNA (PCR) Not Detected (NotDetected) Coronavirus OC43 (PCR) Not Detected (NotDetected) Coronavirus HKU1 (PCR) Not Detected (NotDetected) Coronavirus 229E (PCR) Not Detected (NotDetected) SARS-CoV-2 (PCR) Not Detected (NotDetected) Coronavirus NL63 (PCR) Not Detected (NotDetected) Human Metapneumovir PCR Not Detected (NotDetected) Influenza Type A (PCR) Not Detected (NotDetected) Influenza Type B (PCR) Not Detected (NotDetected) M. pneumoniae (PCR) Not Detected (NotDetected) Parainfluenza 1 (PCR) Not Detected (NotDetected) Parainfluenza 2 (PCR) Not Detected (NotDetected) Parainfluenza 3 (PCR) Not Detected (NotDetected) Parainfluenza 4 (PCR) Not Detected (NotDetected) RSV (PCR) Not Detected (NotDetected) Entero/Rhino (PCR) Not Detected (NotDetected) Administered Medications Discontinued Medications Sodium Chloride (Nss) 500 mls @ 999 mls/hr IV .Q31M JULIO CESAR Stop: 10/12/24 20:30 Last Infusion: 10/12/24 20:54 Dose: Infused Documented By: Admin: 10/12/24 20:22 Dose: 999 mls/hr Documented By: MELANIE Cefepime HCl (Maxipime 2000mg) 2,000 mg in 20 mls @ 5 mls/min IV NOW STA; Protocol Stop: 10/12/24 19:51 Last Admin: 10/12/24 20:40 Dose: 5 mls/min Documented By: MELANIE Acetaminophen (Ofirmev) 1,000 mg in 100 mls @ 400 mls/hr IV NOW STA Stop: 10/12/24 20:02 Last Infusion: 10/12/24 20:40 Dose: Infused Documented By: Admin: 10/12/24 20:22 Dose: 400 mls/hr Documented By: MELANIE Sodium Chloride (Nss) 500 mls @ 999 mls/hr IV .Q31M ONE Stop: 10/12/24 21:31 Last Infusion: 10/12/24 21:47 Dose: Infused Documented By: Admin: 10/12/24 21:05 Dose: 999 mls/hr Documented By: MELANIE Sodium Chloride (Nss) 500 mls @ 999 mls/hr IV .Q31M ONE Stop: 10/12/24 22:28 Last Infusion: 10/12/24 22:40 Dose: Infused Documented By: Admin: 10/12/24 22:05 Dose: 999 mls/hr Documented By: MELANIE Sodium Chloride (Nss) 500 mls @ 999 mls/hr IV .Q31M ONE Stop: 10/12/24 23:17 Last Infusion: 10/12/24 23:24 Dose: Infused Documented By: Admin: 10/12/24 22:53 Dose: 999 mls/hr Documented By: AMNA Digoxin 250 mcg/ Syringe 10 mls @ 2 mls/min IV NOW STA Stop: 10/12/24 23:31 Last Admin: 10/13/24 00:07 Dose: 2 mls/min Documented By: AMNA Sodium Chloride (Nss) 500 mls @ 999 mls/hr IV .Q31M ONE Stop: 10/12/24 23:58 Last Infusion: 10/13/24 00:38 Dose: Infused Documented By: Admin: 10/13/24 00:07 Dose: 999 mls/hr Documented By: AMNA Doxycycline Hyclate 100 mg/ (Dextrose) 100 mls @ 50 mls/hr IV NOW STA Stop: 10/13/24 01:34 Last Admin: 10/13/24 00:07 Dose: 50 mls/hr Documented By: AMNA Metoprolol Tartrate (Metoprolol Tartrate 1 Mg/Ml Vial) 5 mg IV NOW STA Stop: 10/12/24 21:59 Last Admin: 10/12/24 22:04 Dose: 5 mg Documented By: MELANIE Imaging Data Radiologist's Impression: Chest X-Ray 10/12/24 19:48 Exam(s): XR CXR 1 VIEW EXAM: XR Chest, 1 View CLINICAL HISTORY: Reason for exam: Sepsis. TECHNIQUE: Frontal view of the chest. COMPARISON: Chest x-ray 10/09/2023 FINDINGS: Lungs: Low lung volumes of pulmonary vascular congestion. Pleural space: No pleural effusion. No pneumothorax. Heart: Cardiomegaly. Tubes, lines and devices: Pacemaker leads in place. IMPRESSION: Low lung volumes of pulmonary vascular congestion. Electronically signed by: Guillaume Roca MD 10/12/24 21:09 PM Discharge Plan Visit Data Chief Complaint: Confusion Stated Complaint: confused ED Provider: Leandro Aceves Discharge Problem: Sepsis, Acute dehydration, Acute UTI, Acute metabolic encephalopathy, Atrial flutter with rapid ventricular response Patient Disposition: Admitted As Inpatient Discharge Instructions Interventions: ED Discharge Assessment Last Done: 10/13/24 00:44 Discharge Problem: Sepsis Qualifiers: Sepsis type: sepsis due to unspecified organism Sepsis acute organ dysfunction status: unspecified Qualified Code(s): A41.9 - Sepsis, unspecified organism
[2024-10-12 20:05] LABS: Hematocrit (blood only) 38.6 % (37.0-47.0); Hemoglobin 12.9 g/dl (12.0-16.0); Mean Corpuscular Hemoglobin 31.2 pg (25.0-34.0); Mean Corpuscular Hgb Conc 33.4 g/dL (32.0-36.0); Mean Corpuscular Volume 93.2 fL (80.0-100.0); Mean Platelet Volume 11.1 fL (9.4-12.4); Platelet Count 221 K/uL (130-400); RDW Coefficient of Variation 16.6 % (11.5-14.5); RDW Standard Deviation 56.8 fL (36.4-46.3); Red Blood Count 4.14 M/uL (4.20-5.40); White Blood Count 17.91 K/ul (4.8-10.8)
[2024-10-12] MEDS: SODIUM CHLORIDE 0.9% 500 ML IV SCH (20:22)
[2024-10-12] MEDS: ACETAMINOPHEN 1,000 MG/100 ML VIAL IV STA (20:22)
[2024-10-12 20:26] LABS: Basophils # (auto) 0.03 K/uL (0.00-0.20); Basophils % (auto) 0.2 %; Eosinophils # (auto) 0.03 K/uL (0.00-0.50); Eosinophils % (auto) 0.2 %; Immature Granulocytes # (auto) 0.08 K/uL (0.01-0.20); Immature Granulocytes % (auto) 0.4 %; Lymphocytes # (auto) 0.24 K/uL (1.20-3.40); Lymphocytes % (auto) 1.3 %; Monocytes # (auto) 0.36 K/uL (0.11-0.59); Neutrophils # (auto) 17.17 K/uL (1.40-6.50); Neutrophils % (auto) 95.9 %
[2024-10-12 20:40] LABS: Appearance Urine Clear (Clear); Bacteria Urine Automated None Seen (None Seen); Bilirubin Urine Negative (Negative); Blood Urine 1+ (Negative); Cast Urine Automated 0-2 /lpf (0-2); Color Urine Yellow; Glucose Urine UA Negative (Negative); Ketones Urine 1+ (Negative); Leukocyte Esterase Urine 1+ (Negative); Nitrite Urine Negative (Negative); Protein Urine Trace (Negative); Specific Gravity Urine 1.015 (1.000-1.030); Urobilinogen Urine Negative (Negative); WBC Urine Automated 0-5 /hpf (0-5); pH Urine 5.5 (4.5-7.5)
[2024-10-12] MEDS: CEFEPIME 2000MG 2,000 MG/20 ML SYR IV STA (20:40)
[2024-10-12 20:49] LABS: Albumin Level 4.4 gm/dl (3.4-5.0); Bilirubin Direct 0.2 mg/dl (0-0.2); Bilirubin,Total 0.8 mg/dl (0.2-1.0); Creatinine Clr Calc Pharmacy 24.3 ml/min; Magnesium 1.9 mg/dl (1.7-2.4); Potassium 4.4 mmol/L (3.5-5.1); Total Protein 7.5 gm/dl (6.0-8.3)
[2024-10-12 21:02] LABS: Troponin I High Sensitivity 56.8 pg/ml (0-14)
[2024-10-12] MEDS: SODIUM CHLORIDE 0.9% 500 ML IV ONE ×3 (21:05→22:53)
--- NOTE | 2024-10-12 21:10 | XRay Report ---
Exam(s): XR CXR 1 VIEW EXAM: XR Chest, 1 View CLINICAL HISTORY: Reason for exam: Sepsis. TECHNIQUE: Frontal view of the chest. COMPARISON: Chest x-ray 10/09/2023 FINDINGS: Lungs: Low lung volumes of pulmonary vascular congestion. Pleural space: No pleural effusion. No pneumothorax. Heart: Cardiomegaly. Tubes, lines and devices: Pacemaker leads in place. IMPRESSION: Low lung volumes of pulmonary vascular congestion. Electronically signed by: Guillaume Roca MD 10/12/24 21:09 PM
[2024-10-12 21:26] LABS: Adenovirus PCR Not Detected (NotDetected); Bordetella parapertussis PCR Not Detected (NotDetected); Bordetella pertussis PCR Not Detected (NotDetected); Chlamydia pneumoniae PCR Not Detected (NotDetected); Coronavirus 229E PCR Not Detected (NotDetected); Coronavirus CoV-2 (COVID19)PCR Not Detected (NotDetected); Coronavirus HKU1 PCR Not Detected (NotDetected); Coronavirus NL63 PCR Not Detected (NotDetected); Coronavirus OC43PCR Not Detected (NotDetected); Human Metapneumovirus PCR Not Detected (NotDetected); Influenza A PCR Not Detected (NotDetected); Influenza B PCR Not Detected (NotDetected); Mycoplasma pneumoniae PCR Not Detected (NotDetected); Parainfluenza Virus 1 PCR Not Detected (NotDetected); Parainfluenza Virus 2 PCR Not Detected (NotDetected); Parainfluenza Virus 3 PCR Not Detected (NotDetected); Parainfluenza Virus 4 PCR Not Detected (NotDetected); Respiratory Syncytial VirusPCR Not Detected (NotDetected); Rhinovirus/Enterovirus PCR Not Detected (NotDetected)
[2024-10-12] MEDS: METOPROLOL TARTRATE 1 MG/ML VIAL IV STA (22:04)
--- NOTE | 2024-10-13 00:04 | History & Physical Report ---
Date of Service October 12, 2024 Assessment & Plan (1) Sepsis: Plan: 84-year-old female with past medical history significant for diabetes, secondary hyperparathyroidism, CKD stage III, hypercholesterolemia, peripheral vascular disease, obstructive sleep apnea not on CPAP, moderate persistent asthma, COPD, paroxysmal atrial fibrillation, status post watchman left atrial appendage closure device, history of mitral valve clip implantation, pulmonary hypertens ion, chronic diastolic CHF, history of angiodysplasia of colon with hemorrhage, history of aneurysm of left carotid artery, severe tricuspid regurgitation, history of CAD, Mnire's disease, spinal stenosis, depression, history of endometrial cancer, history of TIA, currently living at [facility] was brought in because of confusion. As per son patient today woke up with nausea and vomited and she became confused ,delirious which became worse as the day progressed and was brought in here. In the ER she was tachycardic and was having temp spike. Blood pressure soft. WBC 17. Procalcitonin 1.5. UA positive for leukocyte esterase but bacteria negative. Respiratory bio fire negative. Chest x-ray low lung volumes. Patient currently is drowsy. Can tell her name. Knows that she in the hospital. Knows her age. Can tell that this is September but could not tell current year. Denies any chest pain. Denies abdominal pain. Complaints of neck pain arm pain and leg pains. Could not get much history from the patient currently.As per son patient is generally alert and oriented. She is mostly wheelchair-bound since hip fracture in April and she sometimes can ambulate with a walker as per son. Patient had right femur fracture fall and status post intertrochanteric nail in April 2024 and postop course was complicated by postoperative blood loss anemia hypotension TIFFANY, A-fib with RVR in the setting of COPD . And she was again admitted in 07/15/2024 and was discharged on 07/27/2024 and during this admission she had MSSA bacteremia, UTI pneumonia, human metapneumovirus, COPD exacerbation, persistent rapid A-fib and TIFFANY with creatinine peaking up to 3 and metabolic encephalopathy. During that admission her torsemide dose was adjusted. Urine culture positive for E. coli. She did okay and was discharged to [facility]. Sepsis Confusion, tachycardia and soft blood pressure Has leukocytosis. Procalcitonin 1.5. Lactic acid 1.6 Received about 2 L of fluids in the ER Will continue IV normal saline 100 mL/h Received IV cefepime which we will continue with renal dosing Patient is allergic to vancomycin and penicillins And doxycycline Will follow MRSA swab Will follow CT chest and CT abdomen Follow cultures Close monitor Rapid A-fib/a flutter Received dose of IV Lopressor in the ER ER discussed with cardiology and loaded with IV digoxin to 250 mcg We will monitor S/p Watchman procedure Status post mitral valve clip Not on anticoagulation Cardiac consult Telemetry Sick sinus syndrome status post pacemaker Elevated troponin Initial troponin 56 and repeat is 74 Mostly demand ischemia Will follow serial enzymes and echo Telemetry Confusion Mostly metabolic encephalopathy from above Will monitor Chronic diastolic CHF Severe tricuspid regurgitation Holding torsemide and potassium supplements Getting fluids Monitor for volume overload CKD stage III Presented with creatinine 1.6 around baseline We will follow labs. Sleep apnea Not using CPAP Will use oxygen Nocturnal pulse oximetry when stable Diabetes Diet controlled Sliding scale Follow HbA1c levels Hypothyroidism Continue Synthyroid Hyperlipidemia On statin Peripheral vascular disease On aspirin and statin History of TIA On aspirin and statin Depression On buspirone and sertraline Will hold buspirone for now Chronic pain since hip surgery Hold fentanyl patch and oxycodone as patient is drowsy DVT prophylaxis Heparin subcu Disposition Telemetry CODE STATUS DNR/DNI as per my discussion with the son History of Present Illness Chief Complaint: Sepsis, tachycardia, confusion Primary Care Provider: [facility] 84-year-old female with past medical history significant for diabetes, secondary hyperparathyroidism, CKD stage III, hypercholesterolemia, peripheral vascular disease, obstructive sleep apnea not on CPAP, moderate persistent asthma, COPD, paroxysmal atrial fibrillation, status post watchman left atrial appendage closure device, history of mitral valve clip implantation, pulmonary hypertens ion, chronic diastolic CHF, history of angiodysplasia of colon with hemorrhage, history of aneurysm of left carotid artery, severe tricuspid regurgitation, history of CAD, Mnire's disease, spinal stenosis, depression, history of endometrial cancer, history of TIA, currently living at [facility] was brought in because of confusion. As per son patient today woke up with nausea and vomited and she became confused ,delirious which became worse as the day progressed and was brought in here. In the ER she was tachycardic and was having temp spike. Blood pressure soft. WBC 17. Procalcitonin 1.5. UA positive for leukocyte esterase but bacteria negative. Respiratory bio fire negative. Chest x-ray low lung volumes. Patient currently is drowsy. Can tell her name. Knows that she in the hospital. Knows her age. Can tell that this is September but could not tell current year. Denies any chest pain. Denies abdominal pain. Complaints of neck pain arm pain and leg pains. Could not get much history from the patient currently.As per son patient is generally alert and oriented. She is mostly wheelchair-bound since hip fracture in April and she sometimes can ambulate with a walker as per son. Patient had right femur fracture fall and status post intertrochanteric nail in April 2024 and postop course was complicated by postoperative blood loss anemia hypotension TIFFANY, A-fib with RVR in the setting of COPD . And she was again admitted in 07/15/2024 and was discharged on 07/27/2024 and during this admission she had MSSA bacteremia, UTI pneumonia, human metapneumovirus, COPD exacerbation, persistent rapid A-fib and TIFFANY with creatinine peaking up to 3 and metabolic encephalopathy. During that admission her torsemide dose was adjusted. Urine culture positive for E. coli. She did okay and was [facility] to [facility]. Past medical history. As mentioned above Past surgical history. Colonoscopy. Left and right heart catheterization. Cystoscopy, EGD. Robotic laparoscopic hysterectomy with removal of tubes and ovaries. Laparoscopic cholecystectomy. Ligation of oviducts. Neck spine fusion surgery. Percutaneous closure of left atrial appendage implant. Tonsillectomy. Right hip fracture repair. Left ruptured rotator cuff repair. Sinus surgery. Transcatheter mitral valve repair bilateral. Social history. Quit smoking in 1978. No alcohol use. No drug use. Family history. Brother had brain and lung cancer. Father had diabetes. Mother had glaucoma. Parkinson's. Maternal grandmother had stomach cancer. Allergies Allergy/AdvReac Type Severity Reaction Status Date / Time Sulfa (Sulfonamide Allergy Severe Severe Verified 10/12/24 22:01 Antibiotics) rxn: rash and hives celecoxib Allergy Intermediate Rash/Hives/ Verified 10/12/24 22:01 Itching. cephalexin Allergy Intermediate Rash/Hives/ Verified 10/12/24 22:01 Itching. furosemide Allergy Intermediate Rash/Hives/ Verified 10/12/24 22:01 Itching. gabapentin Allergy Intermediate Rash/Hives/ Verified 10/12/24 22:01 Itching. pregabalin Allergy Intermediate Rash/Hives/ Verified 10/12/24 22:01 Itching. meclizine Allergy Unknown Unknown Verified 10/12/24 22:01 methylprednisolone Allergy Unknown Rash/Hives/ Verified 10/12/24 22:01 Itching. Penicillins Allergy Unknown Unknown. Verified 10/12/24 22:01 prednisone Allergy Unknown Rash/Hives/ Verified 10/12/24 22:01 Itching. vancomycin Allergy Unknown Jodi Verified 10/12/24 22:01 syn. . nickel Allergy Unknown Verified 10/12/24 22:01 dexamethasone AdvReac Intermediate Steroid Verified 10/12/24 22:01 psychosis. Home Medications Medication Instructions Recorded Confirmed Type montelukast 10 mg tablet 10 mg PO PM 04/08/19 10/12/24 History atorvastatin 20 mg tablet 20 mg PO QPM 11/26/21 10/12/24 History levalbuterol tartrate 45 1 puff inhalation Q4H PRN 08/07/22 10/12/24 History mcg/actuation aerosol inhaler Shortness Of Breath Or Wheezing (Xopenex HFA) ipratropium bromide 21 mcg (0.03 2 spray intranasal DAILY PRN 12/06/22 10/12/24 History %) nasal spray rhinorrhea allopurinol 300 mg tablet 300 mg PO HS 08/14/23 10/12/24 History levothyroxine 175 mcg tablet 175 mcg PO DAILYBB 03/21/24 10/12/24 History buspirone 5 mg tablet 5 mg PO AMHS 05/13/24 10/12/24 History acetaminophen 500 mg tablet 500 mg PO Q8 PRN Fever Or Pain 07/15/24 10/12/24 History aspirin 81 mg tablet,delayed 81 mg PO QAM 07/15/24 10/12/24 History release ferrous sulfate 325 mg (65 mg 325 mg PO QAM 07/15/24 10/12/24 History iron) tablet,delayed release glycopyrrolate 9 mcg-formoterol 2 puff inhalation BID 07/15/24 10/12/24 History 4.8 mcg HFA aerosol inhaler (Bevespi newMentorphere) oxycodone 5 mg tablet 5 mg PO Q6H PRN PAIN 9-10 07/15/24 10/12/24 History pantoprazole 40 mg tablet,delayed 40 mg PO AMHS 07/15/24 10/12/24 History release sertraline 150 mg capsule 150 mg PO QAM 07/15/24 10/12/24 History potassium chloride 10 mEq 10 meq PO UD #20 tabs 07/27/24 10/12/24 Rx tablet,extended release carbamide peroxide 6.5 % ear drops 10 drp OTR HS 10/12/24 10/12/24 History cholecalciferol (vitamin D3) 100 100 mcg PO QAM 10/12/24 10/12/24 History mcg (4,000 unit) tablet diclofenac sodium 1 % topical gel 4 g topical QID 10/12/24 10/12/24 History (Voltaren Arthritis Pain) fentanyl 12 mcg/hr transdermal 1 patch transdermal [id number] 10/12/24 10/12/24 History patch melatonin 10 mg tablet 10 mg PO HS 10/12/24 10/12/24 History ondansetron 4 mg disintegrating 4 mg PO Q6H PRN Nausea And Vomiting 10/12/24 10/12/24 History tablet potassium chloride 10 mEq 10 meq PO UD 10/12/24 10/12/24 History tablet,extended release promethazine 25 mg/mL injection 12.5 mg IM Q8 PRN NAUESA/VOMITING 10/12/24 10/12/24 History solution saliva stimulant comb. no.3 2 spray mucous membrane .EVERY 1 10/12/24 10/12/24 History (Biotene Moisturizing Mouth HOUR PRN Dry Mouth mucosal spray) torsemide 10 mg tablet 30 mg PO UD 10/12/24 10/12/24 History torsemide 40 mg tablet 40 mg PO UD 10/12/24 10/12/24 History Past Med/Surg History Problem List Atrial flutter with rapid ventricular response (Acute) Acute metabolic encephalopathy (Acute) Acute UTI (Acute) Acute dehydration (Acute) Sepsis (Acute) Closed right hip fracture Acute hypoxic respiratory failure Acute encephalopathy Infection due to human metapneumovirus (hMPV) Complicated UTI (urinary tract infection) MSSA bacteremia Acute kidney injury superimposed on stage 3b chronic kidney disease Diastolic congestive heart failure ASCVD (arteriosclerotic cardiovascular disease) Acute respiratory failure Sepsis (Acute) Confusion (Acute) Persistent atrial fibrillation with rapid ventricular response Fall (Acute) Closed intertrochanteric fracture of right hip (Acute) Fracture of right femur Transaminitis Acute dehydration (Acute) TIFFANY (acute kidney injury) (Acute) Vomiting (Acute) Weakness (Acute) Nocturnal hypoxemia due to emphysema Chronic renal failure (CRF), stage 3b Acute bronchitis due to COVID-19 virus COVID-19 (Acute) Non-ST elevation AK (NSTEMI) (Acute) Generalized weakness (Acute) Thoracic compression fracture Diarrhea Elevated troponin (Acute) C. difficile diarrhea (Acute) Adult failure to thrive (Acute) Generalized weakness (Acute) S/P mitral valve clip implantation Presence of Watchman left atrial appendage closure device CAD (coronary artery disease) Cardiac pacemaker in situ (Acute) CKD (chronic kidney disease) (Acute) Anemia (Acute) TIA (transient ischemic attack) (Acute) Depression Hypothyroidism RADHA (obstructive sleep apnea) SSS (sick sinus syndrome) Chronic diastolic (congestive) heart failure CKD (chronic kidney disease), stage III TIA (transient ischemic attack) Anemia (Acute) Leukocytosis (Acute) Chronic anticoagulation (Acute) Acute renal insufficiency Severe mitral insufficiency Acute on chronic diastolic heart failure Paroxysmal atrial fibrillation Stroke-like symptoms (Acute) Acute on chronic anemia COVID-19 (Acute) COVID-19 (Acute) History of tobacco abuse Asthma, moderate persistent (Chronic) Meniere disease (Chronic) Atrial fibrillation and flutter (Chronic) History of laminectomy (Chronic) H/O sinus surgery (Chronic) Hx of neck surgery (Chronic) History of repair of left rotator cuff (Chronic) Medical History Generalized weakness Pericardial effusion Low back pain Angio-edema Nausea Leukocytosis Near syncope Hypotension Dehydration TIFFANY (acute kidney injury) Near syncope Elevated brain natriuretic peptide (BNP) level Pneumonia Atrial flutter Carotid artery aneurysm Prolonged QT interval Atrial fibrillation with RVR DM type 2 (diabetes mellitus, type 2) Encounter for pre-operative examination Cholelithiasis Cholecystitis Chest pain at rest Pulmonary emphysema Osteoarthritis of right knee HTN (hypertension) Surgical History History of hysterectomy History of cholecystectomy Family History Father Diabetes Social History Smoking Status: Former smoker Tobacco Type: Cigarettes packs per day: 1.5; Cigarettes Per Day: 30; Second Hand Exposure: No; Do You Dip or Chew Tobacco: No; Hx Alcohol Use: No Hx Substance Use: No Preferred Language: Spanish Communication Ability: Impaired 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 ENT- oropharynx clear Neck- supple, no JVD. Lungs- clear to auscultation no wheezing or crackles Heart- irregular rhythm;Tachycardia no murmur, no gallop. Abdomen- normal bowel sounds, soft, nontender, no distension. Extremities- trace pretibial edema present , no erythema seen Neuro- Drowsy oriented x 2; PERRL, no facial palsy; no dysarthria; moves extremities Results & Data Results & Data Vital Signs (Past 12 Hours) Vital Signs Temp Pulse Pulse Resp BP BP Pulse Ox 10/12/24 23:15 37.9 C H 127 H 20 91/57 L 93 10/12/24 23:00 37.9 C H 133 H 20 89/58 L 94 10/12/24 22:54 124 H 92/57 L 10/12/24 22:43 128 H 18 91/47 L 94 10/12/24 22:27 88 L 10/12/24 22:27 133 H 17 98/46 L 93 10/12/24 22:04 142 H 109/54 L 10/12/24 22:03 38.5 C H 142 H 19 109/54 L 93 10/12/24 21:04 39.0 C H 138 H 22 101/55 L 91 10/12/24 20:59 39.0 C H 139 H 121/60 10/12/24 20:38 141 H 24 121/60 92 10/12/24 20:15 38.9 C H 143 H 20 128/65 93 10/12/24 19:52 92 10/12/24 19:34 144 H 10/12/24 19:32 161 H 15 154/101 H 92 10/12/24 19:32 37.0 C 161 H 15 154/101 H 92 O2 Del Method O2 Flow Rate 10/12/24 23:15 Room Air 10/12/24 23:00 Room Air 10/12/24 22:54 10/12/24 22:43 Room Air 10/12/24 22:27 Room Air, Nasal Cannula 0 10/12/24 22:27 Nasal Cannula 2 10/12/24 22:04 10/12/24 22:03 Nasal Cannula 2 10/12/24 21:04 Room Air 10/12/24 20:59 Room Air 10/12/24 20:38 Room Air 10/12/24 20:15 Room Air 10/12/24 19:52 Room Air 10/12/24 19:34 10/12/24 19:32 Room Air 10/12/24 19:32 Room Air Diagnostic Findings Laboratory Results WBC 17.91 K/ul (4.8-10.8) H 10/12/24 19:25 RBC 4.14 M/uL (4.20-5.40) L 10/12/24 19: Hgb 12.9 g/dl (12.0-16.0) 10/12/24 19: Hct 38.6 % (37.0-47.0) 10/12/24 19: MCV 93.2 fL (80.0-100.0) 10/12/24 19: MCH 31.2 pg (25.0-34.0) 10/12/24 19: MCHC 33.4 g/dL (32.0-36.0) 10/12/24 19: RDW Std Deviation 56.8 fL (36.4-46.3) H 10/12/24: RDW Coeff of Francisco Javier 16.6 % (11.5-14.5) H 10/12/24 19: Plt Count 221 K/uL (130-400) 10/12/24: MPV 11.1 fL (9.4-12.4) 10/12/24 19: Immature Gran % (Auto) 0.4 % 10/12/24: Neut % (Auto) 95.9 % 10/12/24: Lymph % (Auto) 1.3 % 10/12/24: [place] % (Auto) 2.0 % 02/18/25 19:25 Eos % (Auto) 0.2 % 10/12/24 19:25 Baso % (Auto) 0.2 % 10/12/24: Neut # (Auto) 17.17 K/uL (1.40-6.50) H 10/12/24: Lymph # (Auto) 0.24 K/uL (1.20-3.40) L 10/12/24: [place] # (Auto) 0.36 K/uL (0.11-0.59) 10/12/24: Eos # (Auto) 0.03 K/uL (0.00-0.50) 10/12/24: Baso # (Auto) 0.03 K/uL (0.00-0.20) 10/12/24: Immature Gran # (Auto) 0.08 K/uL (0.01-0.20) 10/12/24: Sodium 140 mmol/L (136-145) 10/12/24: Potassium 4.4 mmol/L (3.5-5.1) 10/12/24: Chloride 104 mmol/L (98-107) 10/12/24: Carbon Dioxide 22 mmol/L (21-32) 10/12/24: Anion Gap 14 (3-11) H 10/12/24:25 BUN 37 mg/dl (6-23) H 10/12/24: Creatinine 1.61 mg/dl (0.6-1.2) H 10/12/24: Est Cr Clr Drug Dosing 24.3 ml/min 10/12/24 19:25 eGFR 31.37 10/12/24: BUN/Creatinine Ratio 23.0 (10-20) H 10/12/24: Glucose 167 mg/dl (70-99(Fasting)) H 10/12/24: Lactate 1.6 mmol/L (0.4-2.0) 10/12/24: Calcium 10.0 mg/dl (8.6-10.3) 10/12/24: Magnesium 1.9 mg/dl (1.7-2.4) 10/12/24: Total Bilirubin 0.8 mg/dl (0.2-1.0) 10/12/24 19: Direct Bilirubin 0.2 mg/dl (0-0.2) 10/12/24 19: AST 45 U/L (13-39) H 10/12/24 19:25 ALT 16 U/L (7-52) 10/12/24 19:25 Alkaline Phosphatase 209 U/L (34-104) H 10/12/24 19: Troponin I High Sens 74.7 pg/ml (0-14) H* D 10/12/24 21:30 Total Protein 7.5 gm/dl (6.0-8.3) 10/12/24 19: Albumin 4.4 gm/dl (3.4-5.0) 10/12/24 19: Procalcitonin 1.52 ng/ml (0-0.5) H 10/12/24 19:25 Urine Color Yellow 10/12/24 20:07 Urine Appearance Clear (Clear) 10/12/24 20: Urine pH 5.5 (4.5-7.5) 10/12/24 20:07 Ur Specific [place] 1.015 (1.000-1.030) 10/12/24 20:07 Urine Protein Trace (Negative) H 10/12/24 20:07 Urine Glucose (UA) Negative (Negative) 10/12/24 20: Urine Ketones 1+ (Negative) H 10/12/24 20:07 Urine Blood 1+ (Negative) H 10/12/24 20:07 Urine Nitrite Negative (Negative) 10/12/24 20: Urine Bilirubin Negative (Negative) 10/12/24 20: Urine Urobilinogen Negative (Negative) 10/12/24 20:07 Ur Leukocyte Esterase 1+ (Negative) H 10/12/24 20:07 Urine WBC (Auto) 0-5 /hpf (0-5) 10/12/24 20:07 Urine RBC (Auto) 11-20 /hpf (0-2) H 10/12/24 20:07 U Hyaline Cast (Auto) 0-2 /lpf (0-2) 10/12/24 20:07 U Epithel Cells (Auto) 6-10 /hpf (0-2) H 10/12/24 20:07 Urine Bacteria (Auto) None Seen (None Seen) 10/12/24 20:07 Adenovirus (PCR) Not Detected (NotDetected) 10/12/24 19:25 B. pertussis DNA (PCR) Not Detected (NotDetected) 10/12/24 19:25 B.parapertussis DNA PCR Not Detected (NotDetected) 10/12/24 19:25 C. pneumoniae DNA (PCR) Not Detected (NotDetected) 10/12/24 19:25 Coronavirus OC43 (PCR) Not Detected (NotDetected) 10/12/24 19:25 Coronavirus HKU1 (PCR) Not Detected (NotDetected) 10/12/24 19:25 Coronavirus 229E (PCR) Not Detected (NotDetected) 10/12/24 19:25 SARS-CoV-2 (PCR) Not Detected (NotDetected) 10/12/24 19:25 Coronavirus NL63 (PCR) Not Detected (NotDetected) 10/12/24 19:25 Human Metapneumovir PCR Not Detected (NotDetected) 10/12/24 19:25 Influenza Type A (PCR) Not Detected (NotDetected) 10/12/24 19:25 Influenza Type B (PCR) Not Detected (NotDetected) 10/12/24 19:25 M. pneumoniae (PCR) Not Detected (NotDetected) 10/12/24 19:25 Parainfluenza 1 (PCR) Not Detected (NotDetected) 10/12/24 19:25 Parainfluenza 2 (PCR) Not Detected (NotDetected) 10/12/24 19:25 Parainfluenza 3 (PCR) Not Detected (NotDetected) 10/12/24 19:25 Parainfluenza 4 (PCR) Not Detected (NotDetected) 10/12/24 19:25 RSV (PCR) Not Detected (NotDetected) 10/12/24 19:25 Entero/Rhino (PCR) Not Detected (NotDetected) 10/12/24 19:25 Impressions Chest X-Ray 10/12/24 19:48 Exam(s): XR CXR 1 VIEW EXAM: XR Chest, 1 View CLINICAL HISTORY: Reason for exam: Sepsis. TECHNIQUE: Frontal view of the chest. COMPARISON: Chest x-ray 10/09/2023 FINDINGS: Lungs: Low lung volumes of pulmonary vascular congestion. Pleural space: No pleural effusion. No pneumothorax. Heart: Cardiomegaly. Tubes, lines and devices: Pacemaker leads in place. IMPRESSION: Low lung volumes of pulmonary vascular congestion. Electronically signed by: Guillaume Roca MD 10/12/24 21:09 PM ECG Additional Comments: ECG. A flutter with AV block with premature ventricular complexes at the rate of 157. Nonspecific ST abnormality. QTc 455 Code Status & VTE Plan VTE Prophylaxis Plan VTE Prophylaxis will be ordered: Yes (1) Sepsis Sepsis acute organ dysfunction status: with acute organ dysfunction Sepsis type: sepsis due to unspecified organism Severe sepsis acute organ dysfunction type: unspecified
[2024-10-13] MEDS: DOXYCYCLINE HYCLATE 100 MG in DEXTROSE 5% MINI-B 100 ML IV STA (00:07)
[2024-10-13] MEDS: SODIUM CHLORIDE 0.9% 500 ML IV ONE (00:07)
[2024-10-13] MEDS: DIGOXIN 250 MCG in SYRINGE 9 ML IV STA (00:07)
[2024-10-13] MEDS ORDERED: GLUCAGON FOR INJ 1 MG VIAL SQ PRN (01:24)
[2024-10-13] MEDS ORDERED: GLUCOSE 10 TAB/TUBE PO PRN (01:24)
[2024-10-13] MEDS ORDERED: CARBOHYDRATES FOR HYPOGLYCEMIA PO PRN (01:24)
[2024-10-13] MEDS ORDERED: DEXTROSE 50% 50 ML SYRINGE IV PRN (01:24)
[2024-10-13] MEDS ORDERED: GLUCOSE 40% GEL 15 GM TUBE PO PRN (01:24)
[2024-10-13] MEDS ORDERED: NITROGLYCERIN SL 0.4 MG/TAB TAB SL PRN (01:24)
[2024-10-13] MEDS ORDERED: LEVALBUTEROL TARTRATE 15 GM HFA.AER.AD INH PRN (01:24)
--- NOTE | 2024-10-13 01:35 | CT Scan Report ---
EXAM: CT chest diagnostic wo con CLINICAL HISTORY: aspiration, Sepsis TECHNIQUE: Contiguous axial CT images of the chest were acquired without administration of intravenous contrast. Coronal and sagittal reconstructions were obtained. One of the following dose reduction techniques were utilized for this exam: Automated exposure control, adjustment of the mA and/or kV according to patient size, use of iterative reconstruction. COMPARISON: 01/13/2024, CT chest, and 07/19/2024 CR. FINDINGS: Lungs: Groundglass opacification and septal thickening seen in both lungs No pulmonary nodules or masses are identified. Minimal pleural thickening/trace effusion identified bilaterally Mediastinum: The mediastinum is normal in size and contour. Few prominent lymph nodes are identified in right paratracheal and precarinal location largest in precarinal location measures 10 mm The heart size appears enlarged. Mild to moderate pericardial effusion is present Hilar Structures: The hilar structures appear normal without enlargement or abnormality. Low attenuation of aorta in relation to the interventricular septum Senile calcifications seen A prosthetic valve is identified A dual-chamber pacemaker is identified with leads are appropriately placed The pulmonary trunk is borderline dilated and measures 30 mm Trachea and Main Bronchi: The trachea and main bronchi are patent without evidence of obstruction or abnormality. Chest Wall: The chest wall is unremarkable with no evidence of soft tissue or bony abnormalities. 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 Interval progression of the groundglass opacification and septal thickening seen in both lungs, likely due to pulmonary edema or insufficient inspiration. 2. Interval no gross change in cardiomegaly, however, there is a progression of pericardial effusion. Stable cardiomegaly since prior x-ray. 3. Minimal pleural thickening/trace effusion bilaterally. This was not seen on prior x-ray. 4. Mild progression of the number and size of mediastinal lymph nodes. 5. Low attenuation of aorta in relation to the interventricular septum, likely due to anemia, is more evident and the present examination. 6. Borderline dilated interval stable pulmonary trunk. 7. Interval stable cardiac pacemaker, and prosthetic valve. Electronically signed by Randee Hobbs 10-13-2024 01:34 AM
--- NOTE | 2024-10-13 01:48 | CT Scan Report ---
EXAM: CT abd pelvis wo con CLINICAL HISTORY: n/v, sepsis TECHNIQUE: Non-contrast CT of the abdomen and pelvis was performed, with the following protocol: axial images, and reconstructed coronal and sagittal images. No intravenous contrast was administered. One of the following dose reduction techniques was utilized for this exam: Automated exposure control, adjustment of the mA and/or kV according to patient size, and use of iterative reconstruction. COMPARISON: 05/13/2024 CT abd pelvis. FINDINGS: Abdomen: Liver: Normal in size, shape, and density. No focal lesions, cysts, or masses were identified. Gallbladder and Biliary System: Surgical clips seen in gall bladder fossa. Pancreas: Significant fatty replacement of pancreas likely due to age Spleen: Normal in size, shape, and density. No splenic lesions or masses were identified. Kidneys and Adrenal Glands: Both kidneys are borderline normal in size, shape, and position. Right kidney measures 86 mm and left kidney measures 80 mm. A cortical cyst is identified at the upper pole of the left kidney measuring 42 x 24 mm Few cortical cysts are identified in right kidney largest at the interpolar region measuring 27 x 26 mm Calcific foci are identified in both kidneys likely vascular calcifications, rather than calculi Bilateral perinephric fat stranding Both adrenal glands appear mildly bulky Appendix: The appendix is not separately visualized Pelvis: Urinary Bladder: Urinary bladder is almost empty at the time of examination, with foleys Uterus is not visualized likely due to surgery. No gross abnormality seen in both adnexa Peritoneal and Retroperitoneal Structures: No free fluid or abnormal fluid collections were identified within the abdomen or pelvis. No lymphadenopathy was noted. Moderate atherosclerotic calcifications seen in aorta and iliac arteries. Few prominent lymph nodes are identified in para-aortic location, largest is measuring 11 mm Bowel: The visualized bowel loops are normal in caliber and appearance. No evidence of bowel obstruction or wall thickening. Mild fecal loading of the large bowel loop was seen. Few diverticulae are identified in the sigmoid colon. No features of diverticulitis The suggestion of mild submucosal fat deposition along the ascending colon which was also seen in prior examination Bones and Soft Tissues: Mild to moderate scoliosis was identified and visualized spine with convexity towards right side. Degenerative changes seen in the visualized spine with osteophytes, with mild retrolisthesis seen at all levels of the lumbar spine, with reduced disc heights and intervening vacuum phenomena, and schmorl's node, and multilevel facet arthropathy. Partial compression of the T12 vertebral body, with lucencies and sclerosis along the inferior endplate. Implants are identified in the right proximal femur Chest: On covered sections of the chest, heart size is enlarged with mild pericardial effusion and a partially visualized pacemaker. Patchy groundglass opacification and septal thickening were seen in both lungs. Minimal pleural thickening/trace effusion seen bilaterally, IMPRESSION: 1. No renal tract obstruction on either side. 2. Uncomplicated colonic diverticulosis, these were also present in prior examination. 3. Bilateral renal cortical cysts and, calcific densities likely vascular calcifications, stable. 4. Interval stable bilateral perinephric fat stranding. 5. Redemonstration of prominent para-aortic lymph nodes showing interval progression in number and sizes. 6. Mild interval progression of generalized abdominal fat stranding. 7. Interval stable osseous findings 8. The visualized lung findings show interval progression 9. Minimal pleural thickening/trace effusion seen bilaterally, more evident and present examination 10. Mild progression of pericardial effusion Electronically signed by Randee Hobbs 10-13-2024 01:48 AM
[2024-10-13] MEDS: SODIUM CHLORIDE 0.9% 1,000 ML IV SCH (02:24)
--- OUTSIDE RECORDS SUMMARY | 2024-10-13 03:15 | External Medical Summary | Summary of Care ---
Author Name Unknown Organization [facility] Address [address] [place] [address] Phone [phone] Care Team Providers Care Spa Consultant Name Role Phone Vanessa ALAS MD, Yves Miller Primary Care Pr ovider Encounter Details Date Type Department Care Team (Late st Contact Info) Description 10/12/2024 Orders Only Nephrology, Jerri Zamora [address] [place] [address] GreenRosario alcantar MD [address] [place] [address] Allergies Active Allergy Reactions Criticality Noted Date [...] as of this encounter (statuses as of 10/12/2024) Medications RidangoTouch FlyCleanersio w/Device KitIndications:Typ e 2 diabetes mellitus with hemoglobin A1c goal of less than 7.0% ([facility]) Use up to 1 times a day. E11.9 1 Kit 06/19/20 21 Active Vitamin D3 50 MCG (2000 UT) Oral CapsuleIndications :Vitamin D deficiency Take 2 Capsules by mouth in the morning. 60 Capsule 5 04/04/20 22 Active Levalbuterol Tartrate 45 MCG/ACT Inhalation Aerosol (Xopenex HFA)Indications:As thma with severity to be determined Inhale by mouth 1 Puff every 4 hours as needed for Wheezing. 15 g 12 06/13/20 22 Active OneTouch Verio In Vitro Strip (Glucose Blood) Test blood sugars up to 2 times a day E11.9 200 Strip 3 12/21/19 23 Active Atorvastatin Calcium 20 MG Oral Tablet (Lipitor)Indicatio ns:PVD (peripheral vascular disease) ([facility]),Type 2 diabetes mellitus with stage 3a chronic kidney disease and hypertension ([facility]) TAKE ONE TABLET BY MOUTH EVERY DAY DIRECTED 100 Tablet 3 03/22/2024 11:56 AM EDT 08/07/20 23 Active Ipratropium [place] 0.03 % Nasal Solution (Atrovent)Indicati ons:Chronic rhinitis Administer 2 Sprays into nostril in the morning and 2 Sprays before bedtime. 90 mL 3 04/11/2023 9:55 AM EDT 04/01/20 23 Active Allopurinol 300 MG Oral Tablet (Zyloprim) Take 1 Tablet by mouth at bedtime. 90 Tablet 3 04/01/2024 3:45 PM EDT 05/16/20 23 Active Tiotropium [place]-Olodaterol 2.5-2.5 MCG/ACT Inhalation Aerosol Solution (Stiolto Respimat) Inhale 2 Puffs by mouth in the morning. 12 g 3 04/09/2024 12:38 PM EDT 05/23/20 23 Active Montelukast Sodium 10 MG Oral Tablet (Singulair)Indicat ions:Moderate persistent asthma without complication TAKE ONE TABLET BY MOUTH AT BEDTIME 100 Tablet 3 05/13/2024 9:00 AM EDT 09/02/19 24 Active Sertraline HCl 100 MG Oral Tablet (Zoloft) Take one and one-half Tablets by mouth in the morning. 150 Tablet 3 03/11/2024 1:38 PM EDT 10/11/19 24 Active Metoprolol Succinate ER 25 MG Oral Tablet Extended Release 24 Hour (toPROL XL)Indications:Par oxysmal atrial fibrillation (HCC) Take 1 Tablet by mouth in the morning and 1 Tablet before bedtime. 200 Tablet 3 02/12/2024 11:37 AM EDT 10/24/19 24 Active Additional Information Patient not taking.Reported on 08/31/2024 Acetaminophen 500 MG Oral Tablet (Tylenol) Take 2 Tablets by mouth every 6 hours as needed. Max 6 tablets per day (3000 mg) Active Pantoprazole Sodium 40 MG Oral Tablet Delayed Release (Protonix) Take 1 Tablet by mouth in the morning and 1 Tablet by mouth in the evening. 200 Tablet 1 05/13/2024 7:22 AM EDT 01/22/20 24 Active Naloxone HCl 4 MG/0.1ML NA LIQD FOR CAREGIVERIndicatio ns:Compression fracture of T12 vertebra, initial encounter ([facility]) Administer 1 spray into 1 nostril for suspected opioid overdose. Seek immediate medical attention. [email or web address] 1 Each 3 03/16/20 24 025 Active Levothyroxine Sodium 175 MCG Oral Tablet (Levoxyl)Roseliatio ns:Acquired hypothyroidism Take 1 Tablet by mouth daily first thing in the morning. 90 Tablet 3 03/17/20 24 Active Aspirin 81 MG Oral Tablet Delayed Release Take 1 Tablet by mouth in the morning. Active oxyCODONE HCl 5 MG Oral Tablet (Oxy IR)Indications:Stephanie sed fracture of multiple ribs of left side with routine healing, subsequent encounter Take 1 Tablet by mouth every 6 hours as needed for Pain, Breakthrough. 03/30/20 24 Active busPIRone HCl 5 MG Oral Tablet (Buspar) Take 1 Tablet by mouth in the morning and 1 Tablet before bedtime. 60 Tablet 3 04/21/20 24 Active Ondansetron HCl 4 MG Oral TabletIndications: Nausea and vomiting, unspecified vomiting type Take 1 Tablet by mouth every 8 hours as needed for Nausea. 30 Tablet 05/13/20 24 Active fentaNYL 12 MCG/HR Transdermal Patch 72 HourIndications:Co mpression fracture of T12 vertebra, initial encounter ([facility]) Place 1 Patch over 72 hours topically on the skin every 3 days. For pain control. 10 Patch 05/24/20 24 Active Potassium Chloride Capri ER 10 MEQ Oral Tablet Extended Release Take one tab twice daily and on Friday and take extra tab in addition 80 Tablet 08/31/19 25 Active Torsemide 10 MG Oral Tablet (Demadex)Roseliatio ns:Chronic diastolic CHF (congestive heart failure) ([facility]) Take 30 mg daily except on Friday and take 40 mg 100 Tablet 5 08/31/19 25 Active documented as of this encounter (statuses as of 10/12/2024) Active Problems Problem Noted Date Diagnosed Date Memory loss 05/05/2024 Closed wedge compression fracture of T12 vertebr a 03/12/2024 Assessment & Plan (03/12/2024 12:20 PM EDT): Increased oxy from 2.5mg to 5mg [id number] prn Ortho spine ref, ?kyphoplasty Constipation 03/12/2024 Assessment & Plan (03/12/2024 12:25 PM EDT): Last bm 4 days ago Moderate amount retained stool on ct a/p 03/05 Advised miralax bid along with dulcolax tabs Chronic obstructive pulmonary disease 03/12/2024 Assessment & Plan (03/12/2024 12:33 PM EDT): +emphysema per imaging, but PFTs normal >1 year ago +23 pack year smoking history Continue spiriva Type 2 diabetes mellitus with peripheral vascula r disease 11/17/2023 Assessment & Plan (11/17/2023 10:22 AM EDT): "RED FLAG" Diabetic symptoms: Confusion and Vision Changes Goal HgbA1c <8 Diabetic Complications Vascular (examples: PVD, PAD, CAD, CVA) Neurologic (example: Peripheral Neuropathy) Renal (example: CKD, Proteinuria, Dialysis) Medication Regimen Lifestyle Modification / Monitoring ONLY DM Secondary Prevention Moderate-High Intensity Statin Additional Comments Last A1c 6.01 aug 2023 Sigmoid diverticulosis 11/17/2023 Assessment & Plan (11/17/2023 10:23 AM EDT): Recent admission for diverticulitis Treated with cipro and flagyl Continues with intermittent diarrhea, suggested trying OTC fiber supplement Monitor for increased diarrhea, n/v, abd pain, fever/chills Nocturnal hypoxemia 11/05/2023 Presence of Watchman left atrial appendage closu re device 07/31/2023 Overview (11/17/2023): Per BRENDAN 11/03/23 There has been a significant reduction in the size of the thrombus on the Watchman, now measuring 0.9 cm (see image below). There is a trivial paradevice leak Assessment & Plan (11/17/2023 10:25 AM EDT): Continues on eliquis for now Repeat BRENDAN and cardiology f/u scheduled S/P mitral valve clip implantation 03/06/2023 Atherosclerosis of [place] 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 02/13/2023 Assessment & Plan (02/13/2023 7:48 PM EDT): Continue statin, sotalol. ASA History of TIA (transient ischemic attack) 11/29 Assessment & Plan (11/29/2022 2:18 PM EDT): -Recent admission to [facility], [...] without long-term current use of insulin 07/26/2022 Assessment & Plan (03/12/2024 12:22 PM EDT): "RED FLAG" Diabetic symptoms: Excessive Thirst, Confusion, and Vision Changes Goal HgbA1c <8 Diabetic Complications Vascular (examples: PVD, PAD, CAD, CVA) Renal (example: CKD, Proteinuria, Dialysis) Medication Regimen Lifestyle Modification / Monitoring ONLY DM Secondary Prevention Aspirin Yearly Diabetic Eye Exam Additional Comments Last A1c at goal Assessment & Plan (02/13/2023 7:48 PM EDT): Current Status: "Stable" for patient / At [...] likely start Jardiance after mitral valve replacement Assessment & Plan (07/26/2022 1:22 PM EST): Current Status: "Stable" for patient / At or near baseline Degree of Condition Awareness: Demonstrates very good awareness of condition, disease course, and prognosis "RED FLAG" Diabetic symptoms: o none Goal HgbA1c o <8 Diabetic Complications o Vascular (examples: PVD, PAD, CAD, CVA) o Neurologic (example: Peripheral Neuropathy) o Renal (example: CKD, Proteinuria, Dialysis) Medication Regimen o Lifestyle Modification / Monitoring ONLY DM Secondary Prevention o Moderate-High Intensity Statin o Aspirin Chronic diastolic CHF (congestive heart failure) 07/25/2022 Assessment & Plan (11/17/2023 10:26 AM EDT): "RED FLAG" HF Symptoms: Leg Swelling (Examples: [...] IV Lasix guidance Additional Comments: Stable today Assessment & Plan (02/13/2023 7:43 PM EDT): Current Status: "Stable" for patient / At [...] nephro or GAH prior to starting DTP Assessment & Plan (12/24/2022 10:16 AM EDT): Current Status: "Stable" for patient / At or near baseline Degree of Condition Awareness: Demonstrates very good awareness of condition, disease course, and prognosis "RED FLAG" HF Symptoms: o NO IDENTIFIED SYMPTOMS Current Heart Failure Classifications: o With ordinary activity such as doing housework, yard work or shopping ([facility]) Diagnostic Review: Recent Labs Units 12/23/22 1042 12/06/22 1042 12/05/22 0929 10/31/22 1537 10/21/22 1345 LEFT VENTRICULAR EJECTION FRACTION % -- -- -- -- 65 BNP (NT-PRO-BNP) - [facility] pg/mL -- -- 9,451* -- -- ESTIMATED GLOMERULAR FILTRATION RATE - [facility] mL/min 31* < > 32* < > -- HGB - [facility] g/dL 10.7* < > -- < > -- < > = values in this interval not displayed. Medication Regimen: o Beta Graciela Therapy: Sotalol o YE Inhibitor/ARB Therapy: Other: none o Diuretic therapy: Torsemide Self - Management Plan o Double dose of Torsemide for 2 days Exacerbation Plan o BMP Weight, swelling in breathing or improving on the resumed dose of torsemide 10 mg twice daily. BMP stable. Assessment & Plan (11/06/2022 4:45 PM EDT): Current Status: "Stable" for patient / At or near baseline Degree of Condition Awareness: Demonstrates very good awareness of condition, disease course, and prognosis "RED FLAG" HF Symptoms: o NO IDENTIFIED SYMPTOMS Current Heart Failure Classifications: o With ordinary activity such as doing housework, yard work or shopping ([facility] [employer] [facility]) Diagnostic Review: Recent Labs Units 10/31/22 1537 10/21/22 1345 10/07/22 1116 10/01/22 1228 09/24/22 1447 LEFT VENTRICULAR EJECTION FRACTION % -- 65 -- -- -- BNP (NT-PRO-BNP) - [facility] pg/mL -- -- -- -- 7,896* ESTIMATED GLOMERULAR FILTRATION RATE - [facility] mL/min 40* -- -- < > 41* HGB - [facility] g/dL -- -- 9.8* -- 10.3* < > = values in this interval not displayed. Medication Regimen: o Beta Graciela Therapy: Sotalol o YE Inhibitor/ARB Therapy: Other: none o Diuretic therapy: Torsemide Self - Management Plan o Weigh daily Exacerbation Plan o Other: none Assessment & Plan (09/24/2022 1:18 PM EST): Weight up 2 lb today. Patient says that her dry weight is approximately 145 lb. The patient initiated her DTP doubling her torsemide last week for 3 days. She did lose weight while doing this. It started to increase again with her original dose of torsemide 10 mg. -will permanently increased dose to torsemide 10 mg twice daily -BNP and BMP today -telephone call in 48 hours -follow-up labs and visit next week PVD (peripheral vascular disease) 05/15/2022 Aneurysm of left carotid artery 12/04/2021 Aortic atherosclerosis 12/04/2021 Chronic kidney disease, stage 3b 12/03/2021 Overview: Per CKD protocol Assessment & Plan (12/24/2022 10:21 AM EDT): GFR today 31. 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 Moderate persistent asthma without complication 09/21/2019 Assessment & Plan (02/13/2023 7:49 PM EDT): Baseline -continue albuterol nebs p.r.n. and Advair Assessment & Plan (12/24/2022 10:18 AM EDT): Breathing is baseline. -continue Advair, Xopenex nebs p.r.n. Assessment & Plan (11/06/2022 4:47 PM EDT): Breathing O2 stable -just started Stiolto -continue xopenex prn Assessment & Plan (09/24/2022 1:12 PM EST): No wheezing on exam. Oxygen stable. -continue singular, Stiolto, and rescue inhaler Current moderate episode of major depressive disorder without prior episode 06/14/2019 Assessment & Plan (02/13/2023 7:48 PM EDT): Stable -continue Zoloft, Xanax p.r.n. Pulmonary hypertension 04/02/2019 Type 2 diabetes mellitus with polyneuropathy Secondary hyperparathyroidism, renal 12/17/2018 Acquired renal cyst 06/12/2016 Angiodysplasia of colon with hemorrhage 04/24/20 16 Tremor 09/21/2015 Paroxysmal atrial fibrillation 09/09/2014 Assessment & Plan (03/12/2024 12:23 PM EDT): Rate controlled Not on anticoag due to bleeding history Recently had watchman device placed Assessment & Plan (11/17/2023 10:23 AM EDT): Rate controlled Assessment & Plan (02/13/2023 7:44 PM EDT): Rate controlled. -continue sotalol -no anticoagulation secondary to GI bleeding and anemia Assessment & Plan (12/24/2022 10:17 AM EDT): Rate controlled -continue sotalol. -continue baby aspirin. No anticoagulation due to GI bleeding/anemia. -following closely with Cardiology. Talk of a possible Watchmen device Assessment & Plan (11/29/2022 2:20 PM EDT): -Inpatient cardiology reintroduced low dose apixaban. She was previously taken off 2/2 hx GIB. She denies any concerns with bleeding at present. -Sotalol continued for rate control Assessment & Plan (11/06/2022 4:46 PM EDT): Regular today -continue sotalol. No AC due to GI bleeding last year. Assessment & Plan (09/24/2022 1:11 PM EST): Rate controllled -continue Sotolol -AC discontinued last summer when her H and H started dropping. She was unable to successfully undergo a colonoscopy due to poor prep. She also was due for an EGD that had to be canceled due to COVID. -per PCP as to when/if restart Eliquis Assessment & Plan (07/26/2022 1:20 PM EST): was on AC but suffered severe anemia with no clear source--felt possibly d/t AV malformations so AC stopped. 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 Assessment & Plan (12/24/2022 10:19 AM EDT): Tries to wear bipap at night. Has difficulty falling back asleep. Assessment & Plan (11/06/2022 4:48 PM EDT): Compliant with CPAP Assessment & Plan (09/24/2022 1:12 PM EST): Compliant with BiPAP Due for another sleep study Meniere's disease 10/18/2013 DM type 2, goal HbA1c < 8% 03/24/2013 Overview (12/19/2015): ICD-10 update of inactive term Assessment & Plan (12/24/2022 10:20 AM EDT): Current Status: "Stable" for patient / At or near baseline Degree of Condition Awareness: Demonstrates very good awareness of condition, disease course, and prognosis "RED FLAG" Diabetic symptoms: o none Goal HgbA1c o <7 Diabetic Complications o Vascular (examples: PVD, PAD, CAD, CVA) Medication Regimen o SGLT (ex: Jardiance) DM Secondary Prevention o Moderate-High Intensity Statin o Aspirin Assessment & Plan (11/06/2022 4:52 PM EDT): Current Status: "Stable" for patient / At or near baseline Degree of Condition Awareness: Demonstrates very good awareness of condition, disease course, and prognosis "RED FLAG" Diabetic symptoms: o none Goal HgbA1c o <7 Diabetic Complications o Vascular (examples: PVD, PAD, CAD, CVA) Medication Regimen o Lifestyle Modification / Monitoring ONLY DM Secondary Prevention o Moderate-High Intensity Statin o Aspirin Assessment & Plan (09/24/2022 1:15 PM EST): Last hemoglobin A1c 6.2 Spinal stenosis of lumbar re gion without neurogenic claudication 03/24/2013 Hypothyroidism 03/24/2013 Assessment & Plan (02/13/2023 7:46 PM EDT): Continue Synthroid Assessment & Plan (09/24/2022 1:13 PM EST): Last TSH within normal limits -continue Synthroid 150 mcg daily Displacement of cervical int ervertebral disc without myelopathy 03/24/2013 documented as of this encounter (statuses as of 10/12/2024) Resolved Problems Problem Noted Date Diagnosed Date Resolved Date Paroxysmal SVT (supraventricular tachycardia) 10/24/1910/24/2023 Hypertensive chronic kidney disease with stage 1 through stage 4 chronic kidney disease, or unspecified chronic kidney disease 08/25/2023 09/15/2023 Viral upper respiratory tract infection 11/29/2022 12/05/2022 Assessment & Plan (11/29/2022 2:22 PM EDT): -Cough for a few days. Denies fever/chills. Exam benign. Likely viral. -Mucinex 1200mg BID ordered x7 days. -Instructed supportive care and to call [facility] if she feels she is worsening, not improving, or any other urgent, non-emergent concerns. Severe mitral valve regurgitation 10/30/2022 03/07/2023 Overview (02/13/2023): Scheduled for MVR 03/06 Assessment & Plan (11/06/2022 4:46 PM EDT): Talk of possible repair. We discussed with Cardiology. Anemia 07/26/2022 03/14/2023 Assessment & Plan (02/13/2023 7:45 PM EDT): Last hemoglobin stable at 10.7. Has required multiple transfusions. -CBC scheduled for 02/21 -continue supplements Assessment & Plan (12/24/2022 10:19 AM EDT): Hemoglobin stable today at 10.7 -no anticoagulation due to GI bleeding -continue iron supplement. 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 02/24/2020 Overview (02/24/2020): 01/25/2020: Renal osteodystrophy 09/21/2019 023 Status post [...] as of this encounter (statuses as of 10/12/2024) Immunizations Name Administration Dates Next Due COVID-19 mRNA, LNP-s, No Pre serve, 2-Dose Series (Moderna) 06/23/2021,10/25/2020,09/28/2020 COVID-19, LNP-s, No Preserve , Larry-sucrose, Ages 12+ (Pfizer) 04/09/2022 COVID-19, MRNA-LNP, PF, 30 M CG/0.3 mL, 12 YRS AND ABOVE, IM ([employer]-Comirnat) 06/09/2023 Covid-19, Mrna, Lnp-s, Pf, B ivalent, 30 Mcg, IM, 12 yrs and above (Pfizer) 09/10/2022 HEP A - Hepatitis A (Adult > 18 yrs) 03/15/2004, 07/29/2003 Pneumococcal Conjugate Vacc, 13 Valent (Prevnar) 09/21/2015 Pneumococcal Conjugate Vacci ne, 20-valent ([id number]) 05/05/2024 Pneumococcal Polysaccharide PPV23 (Pneumovax) 05/25/2012,07/25/2007 RSV Vac., Bivalent, Perfusio n F, Pf,0.5 Ml (Abrysvo) 07/22/2023 Seasonal Influenza Vac., MDV , IM, 0.5 mL (Fluzone) 04/26/2015,06/08/2014,05/15/2013,05/25,06/04/2011,05/28/2010,05/12/2009 ,05/25/2008 Seasonal Influenza Virus Vac cine, Unspecified Formulation 05/22/2021 Seasonal Influenza, High Dos e, Trivalent, PF, IM (Fluzone HD) 04/27/2024 Seasonal Influenza, PF, 6 M & above, IM , (FluLaval or Fluzone) 04/28/2018,05/28/2017 Seasonal Influenza, Quadriva lent Hd (Fluzone Hd) 05/13/2023,05/15/2022 Seasonal Influenza, Quadriva lent Hd, 65+ Yrs 04/19/2020 Seasonal Influenza, Quadriva lent, No Preserve, IM 05/07/2016 Seasonal Influenza, Trivalen t, Adjuvanted, 65+ YRS, [...] No 09/29/2023 Does the household have a [place] source of income? (Household - for ages [...] ages 0-17 years) Not on file 09/29/2023 Comments No Sex and Gender Information Value Date Recorded Sex Assigned at Female 12/17/2018 11:06 AM EDT Legal Sex Female 9:35 AM EDT Gender Identity Female 12/17/2018 11:06 AM EDT Sexual Orientation Not on file documented as of this encounter Functional Status * Are you deaf or do you have serious difficulty hearing? Answer Date of Assessment Author No 03/07/2023 12:50 AM EDT Shanique Santos RN * Are you blind or do you have serious difficulty seeing, even when wearing glasses? Answer Date of Assessment Author No 03/07/2023 12:50 AM EDT Shanique Santos RN * Do you have serious difficulty walking or climbing stairs? (5 years old or older) Answer Date of Assessment Author No 03/07/2023 12:50 AM EDT Shanique Santos RN * Do you have difficulty dressing or bathing? (5 years old or older) Answer Date of Assessment Author No 03/07/2023 12:50 AM EDT Shanique Santos RN * Because of a physical, mental, or emotional condition, do you have difficulty doing errands alone such as visiting a doctors office or shopping? (15 years old or older) Answer Date of Assessment Author No 03/07/2023 12:50 AM EDT Shanique Santos RN documented as of this encounter Mental Status * Because of a physical, mental, or emotional condition, do you have serious difficulty concentrating, remembering, or making decisions? (5 years old or older) Answer Entry Date Author No 03/07/2023 12:50 AM EDT Shanique Santos RN documented in this encounter Miscellaneous Notes * Result Encounter Note - Rosario Green MD - 10/12/2024 4:07 PM EST 10/04/24 outside labs Basic metabolic panel: Sodium 139, potassium 4.0, chloride 105, bicarb 26, BUN 44, creatinine 1.7, calcium 9.3, blue glucose 111 WBC 9, hemoglobin 9, platelets 178 Labs acceptable/stable/ at worse end of range of renal fucntion. documented in this encounter Plan of Treatment Upcoming Encounters Date Type Department Care Team (Late st Contact Info) Description 11/04/2024 11:30 AM EDT Office Visit Hematology/Oncology [facility] [address] [facility] [place] [address] Nereyda Metz CRNP [address] [place] [address] Health Maintenance Due Date Last Done Comments Alpha-1 Antitrypsin 1958 Diabetic Eye Exam 05/22/2024 05/22/2023, , 05/22/2023, Additional history exists Diabetic Foot Exam 09/15/2024 09/15/2023, 0 10/01/2022, 10/26/2021, Additional history exists Depression Monitoring 09/29/2024 09/29/2023 HbA1c 10/25/2024 04/27/2024, 11/23, 2023, Additional history exists Albumin/Creatinine Ratio 12/08/2024 024, 02/21/2023, 05/01/2022, Additional history exists GFR 04/03/2025 10/04/2024, 02/0 11/2024, 09/20/2024, Additional history exists TSH 04/27/2025 04/27/2024, 02/23, 03/15/2024, Additional history exists DXA Scan 05/07/2025 05/07/2021, 12/24, 04/12/2013, Additional history exists CKD PHOS USE SMARTSET 29036 05/21/202504/26, 04/27/2024, 08/19/2023, Additional history exists O2 ASSESSMENT COMPLETED IN PAST YEAR FOR COPD 08/31/2025 08/31/2024 CKD HGB USE SMARTSET 70551 10/04/202510/04, 09/20/2024, 09/13/2024, Additional history exists Colonoscopy 03/11/2026 03/11/2022, 02/22, 11/10/2020, Additional history exists DTap/Tdap Vaccines (3 - Td or Tdap) 12/29/2028 12/29/2018, 07/15/2009 Zoster Vaccines Completed 07/16/2019, 04/26, 03/25/2007 COVID-19 Vaccine Discontinued 06/09/2023, , 04/09/2022, Additional history exists Influenza Vaccine (FLU shot) Completed 04/27/2024, 05/13/2023, 05/15/2022, Additional history exists Pneumococcal Vaccine: 50+ Years Completed 05/05/2024, 09/21/2015, 05/25/2012, Additional history exists HPV (Gardasil) Vaccine Aged Out No lo nger eligible based on patient's age to complete this topic Hepatitis B Vaccine Aged Out No longe r eligible based on patient's age to complete this topic MENINGOCOCCAL (MENACTRA/MENVEO) Aged Out No longer eligible based on patient's age to complete this topic Meningitis B Vaccine (Bexsero/Trumemba) Aged Out No longer eligible based on patient's age to complete this topic documented as of this encounter Medical Devices Implanted Type Area Multi Punch Operator Device Identifier Shelf Expiration Date Model / Serial / Lot Cath Thermodilution 6fr - [id number] Implanted:Qty: 1 on 01/24/2023 by Wilbur Rivera MD at [facility] [employer] [id number] 10/15/2024 [id number] / / [id number] Clip Delivery Sytem G4 Xt - [id number] Implanted:Qty: 1 on 03/10/2023 at [facility] [place] [employer] [id number] 04/15/2023 [id number] / / [id number] Clip Delivery Sytem G4 Xtw - [id number] Implanted:Qty: 1 on 03/10/2023 at [facility] [employer] [id number] 12/06/2023 [id number] / / [id number] Mirtaclip G4 - [id number] Implanted:Qty: 1 on 03/10/2023 at [facility] [place] [facility] [employer] 11/19/2023 [id number] / / [id number] Device Watchman Flx 31mm - [id number] Implanted:Qty: 1 on 07/31/2023 by Wilbur Rivera MD at [facility] [facility] [employer] : INTRV CARD [id number] 12/02/2025 [id number] documented as of this encounter Procedures Procedure Name Priority Date/Time Associated Diagnosis Comments CHEMISTRY-OUTSIDE Routine 10/04/2024 documented in this encounter Results * (ABNORMAL) CHEMISTRY-OUTSIDE (10/04/2024) Not all results display below - see scan for full detail OUTSIDE LAB (SEE SCANNED REPORT) Comment:SCAN INCLUDES: BMP, CBC CREATININE 1.73(A) 0.6 - 1.2 MG/DL OUTSIDE LAB (SEE SCANNED REPORT) EGFR 28.78(A) ML/MIN OUTSIDE LA B (SEE SCANNED REPORT) POTASSIUM 4.0 3.5 - 5.1 MMOL/L OUTSIDE LAB (SEE SCANNED REPORT) GLUCOSE 111(A) 70 - 99 MG/DL OUTSIDE LAB (SEE SCANNED REPORT) HOURS FASTING OUTSID E LAB (SEE SCANNED REPORT) TRIGLYCERIDES-OUT SIDE LAB OUTSIDE LAB (SEE SCANNED REPORT) CHOLESTEROL-OUTSI DE LAB OUTSIDE LAB (SEE SCANNED REPORT) HDL-OUTSIDE LAB OUTS ABI LAB (SEE SCANNED REPORT) CHOL/HDL RATIO-OUTSIDE LAB OUTSIDE LA B (SEE SCANNED REPORT) LDL (CALCULATED)-OUTS ABI LAB OUTSIDE LAB (SEE SCANNED REPORT) LDL (DIRECT MEASURE)-OUTSIDE LAB OUTSIDE LAB (SEE SCANNED REPORT) HEMOGLOBIN, Q7J-PPROXIE LAB OUTSIDE LAB (SEE SCANNED REPORT) PHOSPHORUS-OUTSID E LAB OUTSIDE LAB (SEE SCANNED REPORT) PTH-OUTSIDE LAB OUTS ABI LAB (SEE SCANNED REPORT) MICROALBUMIN RATIO-OUTSIDE LAB OUTSIDE LA B (SEE SCANNED REPORT) PROTEIN, UA-OUTSIDE LAB OUTSIDE LAB (SEE SCANNED REPORT) HGB 9.2(A) 12.0 - 16.0 G/DL OUTSIDE LAB (SEE SCANNED REPORT) 10/04/2024 us Yves Mendez III, MD LABORATORY Final Result OUTSIDE LAB (SEE SCANNED REPORT) documented in this encounter Advance Directives Documents on File Type Date Recorded Patient Medical Review Coordinator Expl anation Advance Directives and Living Will 11/29/2022 Bright Healy signed on 2022 - Combined Living Will & Health Care POA Power of Restaurant Bartender 10/24/2014 signed on 10/24/2014 Durable Health Care POA & Living Will - DUPLICATE - plus "What if I had dementia" worksheet * Full Code (Latest Code Status on File) Date Activated Date Inactivated Comments 07/31/2023 10:05 AM 07/31/2023 10:36 PM This order reflects the patients wishes and were consensually agreed upon. Question Answer Comments Discussion of Advance Direct elijah occurred with: Not Discussed due to patient's condition Does the patient have a Living Will? No Does the patient have Health Care Power of Restaurant Bartender? No * No Code Date Activated Date [...] Agen t (per Health Care Power of Restaurant Bartender document) Kathy Healy Adult Child First Alternate Health Care Agent (per Health Care Power of Restaurant Bartender document) Care Teams Spa Consultant Relationship Specialty Start Date End Date Yves Mendez III, MD [facility] [place] [address] [place] [address] PCP - General Internal Medicine 07/29/24 documented as of this encounter
[2024-10-13] MEDS: HEPARIN SOD 5,000 UNIT/0.5 ML VIAL SQ SCH (06:07)
[2024-10-13] MEDS: LEVOTHYROXINE SODIUM 175 MCG TABLET PO SCH (06:11)
[2024-10-13 06:41] LABS: Hematocrit (blood only) 31.6 % (37.0-47.0); Hemoglobin 10.2 g/dl (12.0-16.0); Mean Corpuscular Hemoglobin 30.8 pg (25.0-34.0); Mean Corpuscular Hgb Conc 32.3 g/dL (32.0-36.0); Mean Corpuscular Volume 95.5 fL (80.0-100.0); Mean Platelet Volume 10.7 fL (9.4-12.4); Platelet Count 161 K/uL (130-400); RDW Coefficient of Variation 16.7 % (11.5-14.5); RDW Standard Deviation 58.6 fL (36.4-46.3); Red Blood Count 3.31 M/uL (4.20-5.40); White Blood Count 10.75 K/ul (4.8-10.8)
[2024-10-13 06:42] LABS: BUN Creatinine Ratio 26.6 (10-20); Calcium 8.7 mg/dl (8.6-10.3); Creatinine Clr Calc Pharmacy 25.5 ml/min; Magnesium 1.8 mg/dl (1.7-2.4); Potassium 3.9 mmol/L (3.5-5.1)
[2024-10-13 06:58] LABS: Troponin I High Sensitivity 67.6 pg/ml (0-14)
[2024-10-13 07:18] LABS: Basophils # (auto) 0.01 K/uL (0.00-0.20); Basophils % (auto) 0.1 %; Eosinophils # (auto) 0.01 K/uL (0.00-0.50); Eosinophils % (auto) 0.1 %; Immature Granulocytes # (auto) 0.06 K/uL (0.01-0.20); Immature Granulocytes % (auto) 0.6 %; Lymphocytes # (auto) 0.25 K/uL (1.20-3.40); Lymphocytes % (auto) 2.3 %; Monocytes # (auto) 0.45 K/uL (0.11-0.59); Monocytes % (auto) 4.2 %; Neutrophils # (auto) 9.97 K/uL (1.40-6.50); Neutrophils % (auto) 92.7 %; Ovalocytes 1+; Polychromasia 1+
[2024-10-13] MEDS: INSULIN ASPART PER UNIT CHARGE SC SCH (08:30)
[2024-10-13] MEDS: ONDANSETRON INJ 2 MG/ML 2 ML VIAL IV PRN (08:30)
--- NOTE | 2024-10-13 08:30 | Cardiology Consultation ---
Date of Consultation October 13, 2024 Assessment & Plan (1) Sepsis: (2) Confusion: (3) Atrial flutter with rapid ventricular response: (4) Diastolic congestive heart failure: Plan Assessment 84 year old female admitted with concerns for sepsis, found to be in A-flutter with RVR. Unclear if patient was on her home rate control medications. Cardiology requested for further evaluation. Plan: 1. Sepsis 2. confusion -Patient admitted with acute confusion. Family does question if there is some degree of baseline dementia; however, this is an acute change. Elevated white count and Procalcitonin levels. patient was given IV fluids and initiated on IV antibiotics after blood cultures were drawn. Suspect her acute confusion is s/t infection. continued management per primary team. 3. Atrial flutter with RVR -A-fib noted on telemetry rates 100-126 bpm. occasional PVCs. She is not on any rate control therapies. Start Metoprolol tartrate 25mg PO TID at this time and assess rate response. -Elevated rates likely precipitated by acute infectious process, but also unsure if patient was receiving her prescribed beta caridad therapy prior to hospitalization. -Not on oral anticoagulation therapies as she has a watchman device. 4. Diastolic congestive heart failure -Endorses some mild dyspnea which may be multifactorial. -elevated rates may also drive hypervolemia in addition to receiving IVF per sepsis protocol. -PO Torsemide current on hold. -Awaiting echocardiogram. -Renal function is stable and therefore pending echo results, may resume diuretic therapies. Case has been discussed with Dr. Márquez. Further recommendations regarding plan of care as per his assessment. I spent a total of 30 minutes on the date of service in preparation, delivery, documentation of the care provided to the patient excluding any time spent in the performance of separately billed services. JESS Thao [facility] Supervising Physician Co-Signing Physician Notes I have personally performed a history and physical examination on the patient. I have reviewed the advance practitioner's documentation, and I agree with, and take responsibility for the plan of care. 84-year-old female admitted secondary to confusion, fever, and presumed sepsis. Stool sample positive for norovirus, and enteroaggregative Escherichia coli. Possible urinary tract infection per urinalysis. Urine culture pending at this time. Cardiology consultation requested due to atrial fibrillation/flutter with rapid ventricular response. Heart rate initially elevated on presentation due to volume depletion and fever. Heart rates have improved overnight. Preliminary review of bedside 2D transthoracic echocardiogram demonstrates preserved LV systolic function, otherwise stable findings. Patient is not chronically anticoagulated due to presence of Watchman device. Recommend rate control strategy. Restart metoprolol 25 mg 3 times daily. No additional digoxin at th is time. Continue telemetry monitoring. Hold outpatient diuretic therapy today with reassessment of volume status/GFR/electrolytes in AM. Isaías Márquez DO [facility] I spent a total of 35 minutes on the date of service in preparation, delivery, and documentation of the care provided to this patient, excluding any time spent in the performance of separately billed services. History of Present Illness Reason for Consultation: A-fib with RVR Requesting Physician: Cris mathur Attending Physician: Ashley Wilkinson MD History of Present Illness HPI: Patient is a 84 year old female with complex PMHx as noted below that presented to the ER from [facility] due to confusion. Per review of record patient had woken up the day of admission, was nauseated, vomited and and became more confused as the day progressed. Most recent hospitalization dates back to 06/1014 when she was admitted for MSSA bacteremia, UTI, pneumonia, human metapneumovirus, COPD exacerbation with persistent A-fib. She was discharged on Toprol xl 50mg PO BID, but it does not look as though she was continued on this medication. Family member is present with patient at time of today's exa mination. She is unsure about medications as [facility] has been managing. Patient is pleasant, she is aware she is in the hospital, but details are "fuzzy", she endorses fatigue, says "I just keep dozing off!" denies chest pain, pressure or palpitations. She does endorse some mild dyspnea, but is saturating well on room air. No pre-syncope or syncope, no lower extremity edema. EKG on admission A-flutter rate 157bpm. Repeat EKG today continues to show Atrial flutter 91bpm Chest xray: IMPRESSION: Low lung volumes of pulmonary vascular congestion. CT ABD/Pelvis: IMPRESSION: 1. No renal tract obstruction on either side. 2. Uncomplicated colonic diverticulosis, these were also present in prior examination. 3. Bilateral renal cortical cysts and, calcific densities likely vascular calcifications, stable. 4. Interval stable bilateral perinephric fat stranding. 5. Redemonstration of prominent para-aortic lymph nodes showing interval progression in number and sizes. 6. Mild interval progression of generalized abdominal fat stranding. 7. Interval stable osseous findings 8. The visualized lung findings show interval progression 9. Minimal pleural thickening/trace effusion seen bilaterally, more evident and present examination 10. Mild progression of pericardial effusion Chest CT: IMPRESSION: 1. Interval progression of the groundglass opacification and septal thickening seen in both lungs, likely due to pulmonary edema or insufficient inspiration. 2. Interval no gross change in cardiomegaly, however, there is a progression of pericardial effusion. Stable cardiomegaly since prior x-ray. 3. Minimal pleural thickening/trace effusion bilaterally. This was not seen on prior x-ray. 4. Mild progression of the number and size of mediastinal lymph nodes. 5. Low attenuation of aorta in relation to the interventricular septum, likely due to anemia, is more evident and the present examination. 6. Borderline dilated interval stable pulmonary trunk. 7. Interval stable cardiac pacemaker, and prosthetic valve. WBC elevated on admission, trending down, Procalcitonin elevated High sensitivity troponin 56.8/74.7/67.6 UA abnormal Blood cultures pending Echocardiogram pending Review of telemetry shows Problem List: Chronic diastolic CHF secondary to valvular insufficiency Severe mitral regurgitation status post mitral clip XT, 03/06/2023 Sick Sinus Syndrome status post dual chamber permanent pacemaker 07/2022 Atrial fibrillation, persistent since December 2023 per review of the most recent device interrogation [id number] score of 7 (age 2, female, CHF,DM, TIA 2) History of severe GIB, history of hiatal hernia, intermittent Ivan erosions, multiple AV malformations Status post July 2023 Watchman implantation, 31 m device Follow-up BRENDAN at [facility] on 09/15/2023 with a 2.9 cm thrombus on the atrial surface of the Watchman device prompting discontinuation of antiplatelet therapy and initiation of Eliquis 2.5 mg twice daily ASCVD. January 25, 2024 Cardiac catheterization ([facility], Dr. Rivera): 40% mid LAD stenosis. Prox-mid RCA with up to 50% stenosis Severe pulmonary hypertension, multifactorial Hypertension Dyslipidemia Type II diabetes mellitus CKD stage 3 Moderate persistent asthma Aneurysm of the left carotid artery RADHA, CPAP therapy Kinebock's disease Hypothyroidism Iron deficiency anemia GERD Endometrial cancer Hypothyroidism Gout Lumbar spins stenosis Depression Allergies Allergy/AdvReac Type Severity Reaction Status Date / Time Sulfa (Sulfonamide Allergy Severe Severe Verified 10/12/24 22:01 Antibiotics) rxn: rash and hives celecoxib Allergy Intermediate Rash/Hives/ Verified 10/12/24 22:01 Itching. cephalexin Allergy Intermediate Rash/Hives/ Verified 10/12/24 22:01 Itching. furosemide Allergy Intermediate Rash/Hives/ Verified 10/12/24 22:01 Itching. gabapentin Allergy Intermediate Rash/Hives/ Verified 10/12/24 22:01 Itching. pregabalin Allergy Intermediate Rash/Hives/ Verified 10/12/24 22:01 Itching. meclizine Allergy Unknown Unknown Verified 10/12/24 22:01 methylprednisolone Allergy Unknown Rash/Hives/ Verified 10/12/24 22:01 Itching. Penicillins Allergy Unknown Unknown. Verified 10/12/24 22:01 prednisone Allergy Unknown Rash/Hives/ Verified 10/12/24 22:01 Itching. vancomycin Allergy Unknown Jodi Verified 10/12/24 22:01 syn. . nickel Allergy Unknown Verified 10/12/24 22:01 dexamethasone AdvReac Intermediate Steroid Verified 10/12/24 22:01 psychosis. Home Medications Medication Instructions Recorded Confirmed Type montelukast 10 mg tablet 10 mg PO PM 04/08/19 10/12/24 History atorvastatin 20 mg tablet 20 mg PO QPM 11/26/21 10/12/24 History levalbuterol tartrate 45 1 puff inhalation Q4H PRN 08/07/22 10/12/24 History mcg/actuation aerosol inhaler Shortness Of Breath Or Wheezing (Xopenex HFA) ipratropium bromide 21 mcg (0.03 2 spray intranasal DAILY PRN 12/06/22 10/12/24 History %) nasal spray rhinorrhea allopurinol 300 mg tablet 300 mg PO HS 08/14/23 10/12/24 History levothyroxine 175 mcg tablet 175 mcg PO DAILYBB 03/21/24 10/12/24 History buspirone 5 mg tablet 5 mg PO AMHS 05/13/24 10/12/24 History acetaminophen 500 mg tablet 500 mg PO Q8 PRN Fever Or Pain 07/15/24 10/12/24 History aspirin 81 mg tablet,delayed 81 mg PO QAM 07/15/24 10/12/24 History release ferrous sulfate 325 mg (65 mg 325 mg PO QAM 07/15/24 10/12/24 History iron) tablet,delayed release glycopyrrolate 9 mcg-formoterol 2 puff inhalation BID 07/15/24 10/12/24 History 4.8 mcg HFA aerosol inhaler (Bevespi Aerosphere) oxycodone 5 mg tablet 5 mg PO Q6H PRN PAIN 9-10 07/15/24 10/12/24 History pantoprazole 40 mg tablet,delayed 40 mg PO AMHS 07/15/24 10/12/24 History release sertraline 150 mg capsule 150 mg PO QAM 07/15/24 10/12/24 History potassium chloride 10 mEq 10 meq PO UD #20 tabs 07/27/24 10/12/24 Rx tablet,extended release carbamide peroxide 6.5 % ear drops 10 drp OTR HS 10/12/24 10/12/24 History cholecalciferol (vitamin D3) 100 100 mcg PO QAM 10/12/24 10/12/24 History mcg (4,000 unit) tablet diclofenac sodium 1 % topical gel 4 g topical QID 10/12/24 10/12/24 History (Voltaren Arthritis Pain) fentanyl 12 mcg/hr transdermal 1 patch transdermal [id number] 10/12/24 10/12/24 History patch melatonin 10 mg tablet 10 mg PO HS 10/12/24 10/12/24 History ondansetron 4 mg disintegrating 4 mg PO Q6H PRN Nausea And Vomiting 10/12/24 10/12/24 History tablet potassium chloride 10 mEq 10 meq PO UD 10/12/24 10/12/24 History tablet,extended release promethazine 25 mg/mL injection 12.5 mg IM Q8 PRN NAUESA/VOMITING 10/12/24 10/12/24 History solution saliva stimulant comb. no.3 2 spray mucous membrane .EVERY 1 10/12/24 10/12/24 History (Biotene Moisturizing Mouth HOUR PRN Dry Mouth mucosal spray) torsemide 10 mg tablet 30 mg PO UD 10/12/24 10/12/24 History torsemide 40 mg tablet 40 mg PO UD 10/12/24 10/12/24 History Patient History Medical History Generalized weakness Pericardial effusion Low back pain Angio-edema Nausea Leukocytosis Near syncope Hypotension Dehydration TIFFANY (acute kidney injury) Near syncope Elevated brain natriuretic peptide (BNP) level Pneumonia Atrial flutter Carotid artery aneurysm Prolonged QT interval Atrial fibrillation with RVR DM type 2 (diabetes mellitus, type 2) Encounter for pre-operative examination Cholelithiasis Cholecystitis Chest pain at rest Pulmonary emphysema Osteoarthritis of right knee HTN (hypertension) Surgical History History of hysterectomy History of cholecystectomy Family History Father Diabetes Social History Smoking Status: Former smoker Tobacco Type: Cigarettes packs per day: 1.5; Cigarettes Per Day: 30; Second Hand Exposure: No; Do You Dip or Chew Tobacco: No; Hx Alcohol Use: No Hx Substance Use: No Preferred Language: Maori Communication Ability: Impaired Turbine Operator Required: No Beliefs That Will Affect Care: None marital status: Current Living Situation: Senior Living Feels Safe at Home: Yes Assistive Devices: Glasses, Hearing Aid - Right and Walker Review of Systems Review of Systems: All systems reviewed & are unremarkable except as noted in HPI & below Physical Exam Constitutional: well developed, well nourished and + ill appearing; no acute distress Neck: normal visual inspection and trachea midline Respiratory: normal respiratory effort; no respiratory distress, no labored breathing and no cough Auscultation: + diminished lung sounds (bilateral bases ); no crackles, no rales, no rhonchi and no wheezes Cardiovascular: Rate/Rhythm: + irregularly irregular Heart Sounds: normal S1, normal S2 and + murmur (+1/6 systolic) Vessels: dorsalis pedis pulses present; no JVD Extremities: no edema Skin: no rashes, warm and dry + ecchymosis (noted on right arm) Psychiatric: Orientation: alert, oriented to person, oriented to place and cooperative; + not oriented x 3 Affect: euthymic affect Results & Data Vital Signs (Past 12 Hours) Vital Signs Temp Pulse Pulse Resp BP BP Pulse Ox 10/13/24 07:14 36.3 C L 132 H 18 104/58 L 94 10/13/24 02:21 36.8 C 103 H 18 103/59 L 92 10/13/24 01:00 10/13/24 01:00 37.2 C 117 H 22 111/72 94 10/13/24 00:38 120 H 10/13/24 00:07 117 H 10/13/24 00:00 37.6 C H 123 H 16 95/64 L 95 10/12/24 23:44 124 H 10/12/24 23:15 37.9 C H 127 H 20 91/57 L 93 10/12/24 23:00 37.9 C H 133 H 20 89/58 L 94 10/12/24 22:54 124 H 92/57 L 10/12/24 22:43 128 H 18 91/47 L 94 10/12/24 22:27 88 L 10/12/24 22:27 133 H 17 98/46 L 93 10/12/24 22:04 142 H 109/54 L 10/12/24 22:03 38.5 C H 142 H 19 109/54 L 93 10/12/24 21:04 39.0 C H 138 H 22 101/55 L 91 10/12/24 20:59 39.0 C H 139 H 121/60 10/12/24 20:38 141 H 24 121/60 92 O2 Del Method O2 Flow Rate 10/13/24 07:14 Room Air 10/13/24 02:21 Room Air 10/13/24 01:00 Room Air 10/13/24 01:00 Room Air 10/13/24 00:38 10/13/24 00:07 10/13/24 00:00 Nasal Cannula 2 10/12/24 23:44 10/12/24 23:15 Room Air 10/12/24 23:00 Room Air 10/12/24 22:54 10/12/24 22:43 Room Air 10/12/24 22:27 Room Air, Nasal Cannula 0 10/12/24 22:27 Nasal Cannula 2 10/12/24 22:04 10/12/24 22:03 Nasal Cannula 2 10/12/24 21:04 Room Air 10/12/24 20:59 Room Air 10/12/24 20:38 Room Air Laboratory Results Cardiac Enzymes 10/12/24 10/12/24 10/13/24 Range/Units 19:25 21:30 05:47 AST 45 H (13-39) U/L Troponin I High Sens 56.8 H* 74.7 H* D 67.6 H* (0-14) pg/ml CBC 10/12/24 10/13/24 Range/Units 19:25 05:47 WBC 17.91 H 10.75 (4.8-10.8) K/ul RBC 4.14 L 3.31 L (4.20-5.40) M/uL Hgb 12.9 10.2 L (12.0-16.0) g/dl Hct 38.6 31.6 L (37.0-47.0) % Plt Count 221 161 (130-400) K/uL Neut # (Auto) 17.17 H 9.97 H (1.40-6.50) K/uL Lymph # (Auto) 0.24 L 0.25 L (1.20-3.40) K/uL Potter # (Auto) 0.36 0.45 (0.11-0.59) K/uL Eos # (Auto) 0.03 0.01 (0.00-0.50) K/uL Baso # (Auto) 0.03 0.01 (0.00-0.20) K/uL Comprehensive Metabolic Panel 10/12/24 10/13/24 Range/Units 19:25 05:47 Sodium 140 143 (136-145) mmol/L Potassium 4.4 3.9 (3.5-5.1) mmol/L Chloride 104 114 H (98-107) mmol/L Carbon Dioxide 22 25 (21-32) mmol/L BUN 37 H 41 H (6-23) mg/dl Creatinine 1.61 H 1.54 H (0.6-1.2) mg/dl Glucose 167 H 119 H (70-99(Fasting)) mg/dl Calcium 10.0 8.7 (8.6-10.3) mg/dl Direct Bilirubin 0.2 (0-0.2) mg/dl AST 45 H (13-39) U/L ALT 16 (7-52) U/L Alkaline Phosphatase 209 H (34-104) U/L Total Protein 7.5 (6.0-8.3) gm/dl Albumin 4.4 (3.4-5.0) gm/dl Intake and Output 10/12/24 10/13/24 10/13/24 22:59 06:59 14:59 Intake Total 1600 / 2700 1100 / 2700 500 / 500 Output Total 65 / 242 177 / 242 Balance 1535 / 2458 923 / 2458 500 / 500 Intake: IV 1600 / 2700 1100 / 2700 500 / 500 Acetaminophen 1,000 mg In 100 100 / 100 ml @ 400 mls/hr IV NOW STA Rx#: [id number] Doxycycline Hyclate 100 mg In 100 / 100 Dextrose 5% Mini-B 100 ml @ 50 mls/hr IV NOW STA Rx#:[id number] Sodium Chloride 0.9% 1,000 ml @ 1000 / 2000 1000 / 2000 500 / 500 100 mls/hr IV .Q10H JULIO CESAR Rx#: [id number] Sodium Chloride 0.9% 500 ml @ 500 / 500 999 mls/hr IV .Q31M ONE Rx#: [id number] Output: Urine 65 / 65 Urine Amount (Catheter) 175 / 175 Temp Sensing Smith 175 / 175 # Bowel Movements 2 / 2 Other: Weight 67.6 kg 69.3 kg Weight Measurement Method [facility] (1) Sepsis Sepsis acute organ dysfunction status: unspecified Sepsis type: sepsis due to unspecified organism Qualified Code(s): A41.9 - Sepsis, unspecified organism
[2024-10-13] MEDS: CHOLECALCIFEROL 25 MCG (1000 UNITS) TAB PO SCH (08:34)
[2024-10-13] MEDS: ASPIRIN 81 MG ECTAB PO SCH (08:34)
[2024-10-13] MEDS: DICLOFENAC SOD 1% GEL 100 GM TUBE EXT SCH (08:35)
[2024-10-13] MEDS: FERROUS SULFATE 325 MG TAB PO SCH (08:36)
[2024-10-13] MEDS: SERTRALINE HCL 50 MG TABLET PO SCH (08:37)
[2024-10-13] MEDS: UMECLIDINIUM/VILANTEROL 62.5/25MCG 7 PUFFS/INHALER INH SCH (08:37)
[2024-10-13] MEDS: PANTOprazole 40 MG TAB PO SCH (08:37)
[2024-10-13] MEDS: DOXYCYCLINE HYCLATE 100 MG in DEXTROSE 5% MINI-B 100 ML IV SCH (09:58)
[2024-10-13 11:18] LABS: Adenovirus F 40/41 PCR Not Detected (NotDetected); Astrovirus PCR Not Detected (NotDetected); Campylobacter PCR Not Detected (NotDetected); Cryptosporidium PCR Not Detected (NotDetected); Cyclospora cayetanensis PCR Not Detected (NotDetected); Entamoeba histolytica PCR Not Detected (NotDetected); Enteropathogenic E.coli (EPEC) Not Detected (NotDetected); Enterotoxigenic E.coli (ETEC) Not Detected (NotDetected); Giardia lamblia PCR Not Detected (NotDetected); Norovirus GI/GII PCR DETECTED (NotDetected); Plesiomonas shigelloides PCR Not Detected (NotDetected); Rotavirus A PCR Not Detected (NotDetected); Salmonella PCR Not Detected (NotDetected); Sapovirus PCR Not Detected (NotDetected); Shiga-like Toxin E.coli (STEC) Not Detected (NotDetected); Shigella/Enteroinvasive E.coli Not Detected (NotDetected); Vibrio cholerae PCR Not Detected (NotDetected); Vibrio species PCR Not Detected (NotDetected); Yersinia enterocolitica PCR Not Detected (NotDetected)
--- NOTE | 2024-10-13 11:24 | Electrocardiogram Report ---
Test Reason : Blood Pressure : */* mmHG Vent. Rate : 157 BPM Atrial Rate : 278 BPM P-R Int : * ms QRS Dur : 64 ms QT Int : 282 ms P-R-T Axes : * 41 -73 degrees QTcB Int : 455 ms Atrial flutter with variable A-V block with premature ventricular or aberrantly conducted complexes Nonspecific ST abnormality Abnormal ECG Confirmed by Elmer Dahl ([id number]) on 10/13/2024 11:24:04 AM Referred By: [facility] [place] Confirmed By: Elmer Dahl
[2024-10-13 11:31] LABS: Enteroaggregative E.coli(EAEC) DETECTED (NotDetected)
[2024-10-13 11:33] LABS: Estimated Average Glucose 143 mg/dl; Hemoglobin A1C 6.6 % (4.5-5.6)
--- NOTE | 2024-10-13 11:56 | Electrocardiogram Report ---
Test Reason : Blood Pressure : */* mmHG Vent. Rate : 91 BPM Atrial Rate : 273 BPM P-R Int : * ms QRS Dur : 70 ms QT Int : 394 ms P-R-T Axes : * 28 215 degrees QTcB Int : 484 ms Atrial flutter with variable A-V block Nonspecific ST and T wave abnormality Abnormal ECG When compared with ECG of 12-Oct-2024 19:25, (unconfirmed) Vent. rate has decreased by 66 bpm T wave inversion now evident in Anterior leads Confirmed by Elmer Dahl ([id number]) on 10/13/2024 11:56:13 AM Referred By: [facility] Confirmed By: Elmer Dahl
[2024-10-13] MEDS: AZITHROMYCIN 250 MG TAB PO SCH (12:53)
--- NOTE | 2024-10-13 13:36 | Hospitalist Progress Note ---
Date of Service October 13, 2024 Assessment & Plan (1) Sepsis: Plan Pt is an 84-year-old female with past medical history significant for diabetes, secondary hyperparathyroidism, CKD stage III, hypercholesterolemia, peripheral vascular disease, obstructive sleep apnea not on CPAP, moderate persistent asthma, COPD, paroxysmal atrial fibrillation, status post watchman left atrial appendage closure device, history of mitral valve clip implantation, pulmonary hypertension, chronic diastolic CHF, history of angiodysplasia of colon with hemorrhage, history of aneurysm of left carotid artery, severe tricuspid regurgitation, history of CAD, Mnire's disease, spinal stenosis, depression, history of endometrial cancer, history of TIA who presented with concern for acute change in her mental status. Sepsis, POA Acute metabolic Encephalopathy Norovirus infection Enteroaggregative E coli Infection Presented with confusion, tachycardia, leukocytosis and soft blood pressures Procalcitonin elevated at 1.5. Lactic acid 1.6 Pt with copious diarrhea Stool culture positive for Norovirus and EAEC respiratory viral panel negative CT abd pelvis noting known prominent paraaortic lymph nodes UA with urine Cx pending Blood cultures x 2 sets pending Continue with Cefepime and azithromycin Discontinue doxycycline GI consulted, appreciate recs Given recurrent admissions palliative care also consulted after discussion with pt's son and daughter at bedside, appreciate recs IV fluids Pt likely confused in setting of above Continue to monitor Rapid A-fib/a flutter Sick sinus syndrome status post pacemaker Loculated pericardial effusion EKG noting a flutter/a fib Echo with EF 60-65%, LA severely dilated and moderate loculated pericardial effusion Received dose of IV Lopressor in the ER ER discussed with cardiology and loaded with IV digoxin to 250 mcg S/p Watchman procedure Status post mitral valve clip Not on anticoagulation Cardiology consulted, appreciate recs -no dig, continue metoprolol Elevated troponin Trops elevated in 50s to 70s before downtrending EKG noting a flutter/a fib Echo with EF 60-65%, LA severely dilated and moderate loculated pericardial effusion Likely demand ischemia Continue to monitor on telemetry Chronic diastolic CHF Severe tricuspid regurgitation Holding torsemide and potassium supplements Gentle fluids Monitor for volume overload Cardiology on board as above CKD stage III Presented with creatinine 1.6 around baseline Continue to monitor Chronic Anemia Hgb at baseline 9-10 range Bleeding lesion on abdomen- heparin SQ on hold Continue to monitor H/H Sleep apnea Not using CPAP Will use oxygen Nocturnal pulse oximetry when stable Diabetes Diet controlled Sliding scale HbA1c 6.6 Hypothyroidism Continue Synthroid Hyperlipidemia On statin Peripheral vascular disease On aspirin and statin History of TIA On aspirin and statin Depression On buspirone and sertraline Will hold buspirone for now Chronic pain since hip surgery Hold fentanyl patch and oxycodone as patient is drowsy Diet: Full liquids, advance as tolerated DVT prophylaxis: Heparin subcu, holding due to bleeding lesion on abdomen, SCDs otherwise Dispo: from [facility], PT/OT services once medically stable. palliative on board Admission and Anticipated Discharge Date Admission Date: October 12, 2024 Subjective pt was seen laying in bed Very drowsy Adult children at bedside and updated AAOx2 when awakened Notes copious amounts of diarrhea Per nursing fecal incontinence noted Review of Systems Review of Systems: All systems reviewed & are unremarkable except as noted in Subjective Physical Exam Physical Exam: General: drowsy Neuro: drowsy HEENT: NC/AT CV: irregular rate and rhythm Resp: no increased effort of breathing Abdomen: Soft, nontender Extremities: No edema in lower extremities bilaterally. Results & Data Results & Data Vital Signs (Past 12 Hours) Vital Signs Temp Pulse Resp BP Pulse Ox O2 Del Method 10/13/24 10:56 36.4 C L 113 H 18 104/63 92 Room Air 10/13/24 07:14 36.3 C L 132 H 18 104/58 L 94 Room Air 10/13/24 02:21 36.8 C 103 H 18 103/59 L 92 Room Air (1) Sepsis Sepsis acute organ dysfunction status: with acute organ dysfunction Sepsis type: sepsis due to unspecified organism Severe sepsis acute organ dysfunction type: unspecified
[2024-10-13] MEDS: METOPROLOL TARTRATE 25 MG TAB PO SCH (13:49)
[2024-10-13] MEDS: allopurinoL 300 MG TAB PO SCH (21:28)
[2024-10-13] MEDS: ATORVASTATIN 20 MG TAB PO SCH (21:28)
[2024-10-13] MEDS: MONTELUKAST SODIUM 10 MG TABLET PO SCH (21:28)
[2024-10-13] MEDS: CEFEPIME 2000MG 2,000 MG/20 ML SYR IV SCH (21:29)
[2024-10-14] MEDS: CARBAMIDE PEROXIDE 6.5% 15 ML BTL OTR SCH (02:00)
[2024-10-14 07:37] LABS: Basophils # (auto) 0.02 K/uL (0.00-0.20); Basophils % (auto) 0.3 %; Eosinophils # (auto) 0.28 K/uL (0.00-0.50); Eosinophils % (auto) 3.5 %; Hematocrit (blood only) 31.1 % (37.0-47.0); Hemoglobin 9.8 g/dl (12.0-16.0); Immature Granulocytes # (auto) 0.04 K/uL (0.01-0.20); Immature Granulocytes % (auto) 0.5 %; Lymphocytes # (auto) 0.83 K/uL (1.20-3.40); Lymphocytes % (auto) 10.5 %; Mean Corpuscular Hemoglobin 30.6 pg (25.0-34.0); Mean Corpuscular Hgb Conc 31.5 g/dL (32.0-36.0); Mean Corpuscular Volume 97.2 fL (80.0-100.0); Mean Platelet Volume 11.6 fL (9.4-12.4); Monocytes # (auto) 0.88 K/uL (0.11-0.59); Monocytes % (auto) 11.1 %; Neutrophils # (auto) 5.89 K/uL (1.40-6.50); Neutrophils % (auto) 74.1 %; Platelet Count 137 K/uL (130-400); RDW Coefficient of Variation 16.9 % (11.5-14.5); RDW Standard Deviation 59.9 fL (36.4-46.3); White Blood Count 7.94 K/ul (4.8-10.8)
[2024-10-14 08:09] LABS: Albumin Globulin Ratio 1.3 (0.9-2); BUN Creatinine Ratio 29.2 (10-20); Bilirubin,Total 0.3 mg/dl (0.2-1.0); Calcium 8.6 mg/dl (8.6-10.3); Creatinine Clr Calc Pharmacy 25.5 ml/min; Globulin 2.3 gm/dl (2.5-4.0); Magnesium 1.8 mg/dl (1.7-2.4); Phosphorus 4.2 mg/dl (2.5-4.9); Potassium 3.7 mmol/L (3.5-5.1); Total Protein 5.3 gm/dl (6.0-8.3)
--- NOTE | 2024-10-14 08:57 | Cardiology Progress Note ---
Date of Service October 14, 2024 Assessment & Plan (1) Sepsis: (2) Confusion: (3) Atrial flutter with rapid ventricular response: (4) Diastolic congestive heart failure: Plan Assessment 84 year old female admitted with concerns for sepsis, found to be in A-flutter with RVR. Unclear if patient was on her home rate control medications. Cardiology requested for further evaluation. Plan: 1. Sepsis 2. confusion -Patient admitted with acute confusion. Family does question if there is some degree of baseline dementia; however, this is an acute change. Elevated white count and Procalcitonin levels. patient was given IV fluids and initiated on IV antibiotics after blood cultures were drawn. Suspect her acute confusion is s/t infection. continued management per primary team. 3. Atrial flutter with RVR -A-fib noted on telemetry rates 100-126 bpm. occasional PVCs. She is not on any rate control therapies. Start Metoprolol tartrate 25mg PO TID at this time and assess rate response. -Elevated rates likely precipitated by acute infectious process, but also unsure if patient was receiving her prescribed beta caridad therapy prior to hospitalization. -Not on oral anticoagulation therapies as she has a watchman device. 4. Diastolic congestive heart failure -Endorses some mild dyspnea which may be multifactorial. -elevated rates may also drive hypervolemia in addition to receiving IVF per sepsis protocol. -PO Torsemide current on hold. -Awaiting echocardiogram. -Renal function is stable and therefore pending echo results, may resume diuretic therapies. 10/14/2024: -Patient has improved from a cardiac perspective. -heart rates now controlled with addition of Metoprolol. Stop Metoprolol tartrate in favor of switching to Toprol xl 50mg PO BID, first dose tonight. -Continued management of acute infection by primary team. -PO Torsemide on hold today s/t loose stools. remain on hold at this time -Renal function remains stable. Case has been discussed with Dr. Márquez. Further recommendations regarding plan of care as per his assessment. I spent a total of 30 minutes on the date of service in preparation, delivery, documentation of the care provided to the patient excluding any time spent in the performance of separately billed services. JESS Th[facility] Admission and Anticipated Discharge Date Admission Date: October 12, 2024 Supervising Physician Co-Signing Physician Notes I have personally performed a history and physical examination on the patient. I have reviewed the advance practitioner's documentation, and I agree with, and take responsibility for the plan of care. 84-year-old female admitted secondary to confusion, fever, and presumed sepsis. Stool sample positive for norovirus, and enteroaggregative Escherichia coli. Possible urinary tract infection per urinalysis. Urine culture pending. Cardiology consultation requested due to atrial fibrillation/flutter with rapid ventricular response. Heart rate improved with titration of beta-caridad therapy. Continue rate control strategy. Discontinue metoprolol to tartrate in favor of Toprol-XL 50 mg twice daily. No additional digoxin at this time. Continue telemetry monitoring. Hold outpatient diuretic therapy today due to ongoing diarrhea. Reassess volume status/GFR/electrolytes in AM. Isaías Márquez DO, [facility] I spent a total of 35 minutes on the date of service in preparation, delivery, and documentation of the care provided to this patient, excluding any time spent in the performance of separately billed services. Subjective 09/13/2024: Patient seen and examined in follow up today. Feeling "better". Continues with some confusion. Family at bedside. She is out of bed to a chair today. Denies chest pain, pressure, palpitations, no changes in breathing. Now in contact isolation s/t norovirus and EAEC in stool. Labs, vitals, diagnostics, telemetry and documentation reviewed. Telemetry reviewed showing A-fib/flutter rates 70-90's. no acute events overnight. Review of Systems Review of Systems: All systems reviewed & are unremarkable except as noted in HPI & below Physical Exam Constitutional: well developed, well nourished and + ill appearing; no acute distress Neck: normal visual inspection and trachea midline Respiratory: normal respiratory effort; no respiratory distress, no labored breathing and no cough Auscultation: + diminished lung sounds (bilateral bases ); no crackles, no rales, no rhonchi and no wheezes Cardiovascular: Rate/Rhythm: + irregularly irregular Heart Sounds: normal S1, normal S2 and + murmur (+1/6 systolic) Vessels: dorsalis pedis pulses present; no JVD Extremities: no edema Skin: no rashes, warm and dry + ecchymosis (noted on right arm) Psychiatric: Orientation: alert, oriented to person, oriented to place and cooperative; + not oriented x 3 Affect: euthymic affect Results & Data Vital Signs (Past 12 Hours) Vital Signs Temp Pulse Pulse Resp BP Pulse Ox O2 Del Method 10/14/24 07:15 36.6 C 81 19 96/60 L 93 Room Air 10/14/24 07:00 80 10/14/24 03:44 36.6 C 82 16 120/68 94 Room Air 10/13/24 23:35 36.9 C 85 16 115/88 98 Room Air 10/13/24 21:45 Room Air Laboratory Results Cardiac Enzymes 10/13/24 10/14/24 Range/Units 17:44 06:41 AST 53 H (13-39) U/L Troponin I High Sens 50.7 H* (0-14) pg/ml CBC 10/14/24 Range/Units 06:41 WBC 7.94 (4.8-10.8) K/ul RBC 3.20 L (4.20-5.40) M/uL Hgb 9.8 L (12.0-16.0) g/dl Hct 31.1 L (37.0-47.0) % Plt Count 137 (130-400) K/uL Neut # (Auto) 5.89 (1.40-6.50) K/uL Lymph # (Auto) 0.83 L (1.20-3.40) K/uL [place] # (Auto) 0.88 H (0.11-0.59) K/uL Eos # (Auto) 0.28 (0.00-0.50) K/uL Baso # (Auto) 0.02 (0.00-0.20) K/uL Comprehensive Metabolic Panel 10/14/24 Range/Units 06:41 Sodium 139 (136-145) mmol/L Potassium 3.7 (3.5-5.1) mmol/L Chloride 112 H (98-107) mmol/L Carbon Dioxide 19 L (21-32) mmol/L BUN 45 H (6-23) mg/dl Creatinine 1.54 H (0.6-1.2) mg/dl Glucose 92 (70-99(Fasting)) mg/dl Calcium 8.6 (8.6-10.3) mg/dl AST 53 H (13-39) U/L ALT 19 (7-52) U/L Alkaline Phosphatase 138 H (34-104) U/L Total Protein 5.3 L D (6.0-8.3) gm/dl Albumin 3.0 L (3.4-5.0) gm/dl Intake and Output 10/13/24 10/14/24 10/14/24 22:59 06:59 14:59 Intake Total 1308.333 / 2835.000 926.667 / 2835.000 Output Total 602 / 854 250 / 854 Balance 706.333 / 1981.000 676.667 / 1981.000 Intake: IV 788.333 / 2315.000 926.667 / 2315.000 Sodium Chloride 0.9% 1,000 ml @ 788.333 / 2215.000 926.667 / 2215.000 100 mls/hr IV .Q10H JULIO CESAR Rx#: [id number] Oral 520 / 520 Output: Urine Amount (Catheter) 600 / 850 250 / 850 Temp Sensing [place] 600 / 850 250 / 850 # Bowel Movements 2 / 4 Other: Weight 69.4 kg Weight Measurement Method Built in [facility] (1) Sepsis Sepsis acute organ dysfunction status: unspecified Sepsis type: sepsis due to unspecified organism Qualified Code(s): A41.9 - Sepsis, unspecified organism
--- NOTE | 2024-10-14 10:08 | Palliative Care Consultation ---
Date of Consultation October 14, 2024 History of Present Illness Reason for Consultation: goals of care Requesting Physician: Ashley Wilkinson MD Attending Physician: Ashley Wilkinson MD History of Present Illness 84-year-old female with past medical history significant for diabetes, secondary hyperparathyroidism, CKD stage III, hypercholesterolemia, peripheral vascular disease, obstructive sleep apnea not on CPAP, moderate persistent asthma, COPD, paroxysmal atrial fibrillation, status post watchman left atrial appendage closure device, history of mitral valve clip implantation, pulmonary hypertension, chronic diastolic CHF, history of angiodysplasia of colon with hemorrhage, history of aneurysm of left carotid artery, severe tricuspid regurgitation, history of CAD, Mnire's disease, spinal stenosis, depression, history of endometrial cancer, history of TIA, currently living at [facility] was brought in because of confusion. As per son patient today woke up with nausea and vomited and she became confused ,delirious which became worse as the day progressed and was brought in here. In the ER she was tachycardic and was having temp spike. Blood pressure soft. WBC 17. Procalcitonin 1.5. UA positive for leukocyte esterase but bacteria negative. Respiratory bio fire negative. Chest x-ray low lung volumes. Patient currently is drowsy. Can tell her name. Knows that she in the hospital. Knows her age. Can tell that this is September but could not tell current year. Denies any chest pain. Denies abdominal pain. Complaints of neck pain arm pain and leg pains. Could not get much history from the patient currently.As per son patient is generally alert and oriented. She is mostly wheelchair-bound since hip fracture in April and she sometimes can ambulate with a walker as per son. Patient had right femur fracture fall and status post intertrochanteric nail in April 2024 and postop course was complicated by postoperative blood loss anemia hypotension TIFFANY, A-fib with RVR in the setting of COPD . And she was again admitted in 07/15/2024 and was discharged on 07/27/2024 and during this admission she had MSSA bacteremia, UTI pneumonia, human metapneumovirus, COPD exacerbation, persistent rapid A-fib and TIFFANY with creatinine peaking up to 3 and metabolic encephalopathy. During that admission her torsemide dose was adjusted. Urine culture positive for E. coli. She did okay and was discharged to [facility]. Allergies Allergy/AdvReac Type Severity Reaction Status Date / Time Sulfa (Sulfonamide Allergy Severe Severe Verified 10/12/24 22:01 Antibiotics) rxn: rash and hives celecoxib Allergy Intermediate Rash/Hives/ Verified 10/12/24 22:01 Itching. cephalexin Allergy Intermediate Rash/Hives/ Verified 10/12/24 22:01 Itching. furosemide Allergy Intermediate Rash/Hives/ Verified 10/12/24 22:01 Itching. gabapentin Allergy Intermediate Rash/Hives/ Verified 10/12/24 22:01 Itching. pregabalin Allergy Intermediate Rash/Hives/ Verified 10/12/24 22:01 Itching. meclizine Allergy Unknown Unknown Verified 10/12/24 22:01 methylprednisolone Allergy Unknown Rash/Hives/ Verified 10/12/24 22:01 Itching. Penicillins Allergy Unknown Unknown. Verified 10/12/24 22:01 prednisone Allergy Unknown Rash/Hives/ Verified 10/12/24 22:01 Itching. vancomycin Allergy Unknown Jodi Verified 10/12/24 22:01 syn. . nickel Allergy Unknown Verified 10/12/24 22:01 dexamethasone AdvReac Intermediate Steroid Verified 10/12/24 22:01 psychosis. Home Medications Medication Instructions Recorded Confirmed Type montelukast 10 mg tablet 10 mg PO PM 04/08/19 10/12/24 History atorvastatin 20 mg tablet 20 mg PO QPM 11/26/21 10/12/24 History levalbuterol tartrate 45 1 puff inhalation Q4H PRN 08/07/22 10/12/24 History mcg/actuation aerosol inhaler Shortness Of Breath Or Wheezing (Xopenex HFA) ipratropium bromide 21 mcg (0.03 2 spray intranasal DAILY PRN 12/06/22 10/12/24 History %) nasal spray rhinorrhea allopurinol 300 mg tablet 300 mg PO HS 08/14/23 10/12/24 History levothyroxine 175 mcg tablet 175 mcg PO DAILYBB 03/21/24 10/12/24 History buspirone 5 mg tablet 5 mg PO AMHS 05/13/24 10/12/24 History acetaminophen 500 mg tablet 500 mg PO Q8 PRN Fever Or Pain 07/15/24 10/12/24 History aspirin 81 mg tablet,delayed 81 mg PO QAM 07/15/24 10/12/24 History release ferrous sulfate 325 mg (65 mg 325 mg PO QAM 07/15/24 10/12/24 History iron) tablet,delayed release glycopyrrolate 9 mcg-formoterol 2 puff inhalation BID 07/15/24 10/12/24 History 4.8 mcg HFA aerosol inhaler (Bevespi Aerosphere) oxycodone 5 mg tablet 5 mg PO Q6H PRN PAIN 9-10 07/15/24 10/12/24 History pantoprazole 40 mg tablet,delayed 40 mg PO AMHS 07/15/24 10/12/24 History release sertraline 150 mg capsule 150 mg PO QAM 07/15/24 10/12/24 History potassium chloride 10 mEq 10 meq PO UD #20 tabs 07/27/24 10/12/24 Rx tablet,extended release carbamide peroxide 6.5 % ear drops 10 drp OTR HS 10/12/24 10/12/24 History cholecalciferol (vitamin D3) 100 100 mcg PO QAM 10/12/24 10/12/24 History mcg (4,000 unit) tablet diclofenac sodium 1 % topical gel 4 g topical QID 10/12/24 10/12/24 History (Voltaren Arthritis Pain) fentanyl 12 mcg/hr transdermal 1 patch transdermal [id number] 10/12/24 10/12/24 History patch melatonin 10 mg tablet 10 mg PO HS 10/12/24 10/12/24 History ondansetron 4 mg disintegrating 4 mg PO Q6H PRN Nausea And Vomiting 10/12/24 10/12/24 History tablet potassium chloride 10 mEq 10 meq PO UD 10/12/24 10/12/24 History tablet,extended release promethazine 25 mg/mL injection 12.5 mg IM Q8 PRN NAUESA/VOMITING 10/12/24 10/12/24 History solution saliva stimulant comb. no.3 2 spray mucous membrane .EVERY 1 10/12/24 10/12/24 History (Biotene Moisturizing Mouth HOUR PRN Dry Mouth mucosal spray) torsemide 10 mg tablet 30 mg PO UD 10/12/24 10/12/24 History torsemide 40 mg tablet 40 mg PO UD 10/12/24 10/12/24 History Patient History Medical History Generalized weakness Pericardial effusion Low back pain Angio-edema Nausea Leukocytosis Near syncope Hypotension Dehydration TIFFANY (acute kidney injury) Near syncope Elevated brain natriuretic peptide (BNP) level Pneumonia Atrial flutter Carotid artery aneurysm Prolonged QT interval Atrial fibrillation with RVR DM type 2 (diabetes mellitus, type 2) Encounter for pre-operative examination Cholelithiasis Cholecystitis Chest pain at rest Pulmonary emphysema Osteoarthritis of right knee HTN (hypertension) Surgical History History of hysterectomy History of cholecystectomy Family History Father Diabetes Social History Smoking Status: Former smoker Tobacco Type: Cigarettes packs per day: 1.5; Cigarettes Per Day: 30; Second Hand Exposure: No; Do You Dip or Chew Tobacco: No; Hx Alcohol Use: No Hx Substance Use: No Preferred Language: Estonian Communication Ability: Impaired Door Operator Required: No Beliefs That Will Affect Care: None marital status: Current Living Situation: [facility] Feels Safe at Home: Yes Assistive Devices: Glasses, Hearing Aid - Right and Walker Review of Systems 2 Review of Systems: All systems reviewed & are unremarkable except as noted in HPI & below Physical Exam Physical Exam: General- pleasantly confused, not in distress, on 4L NC O2 Head- atraumatic/normocephalic Eyes- PERRL, EOMI, anicteric ENT- oropharynx clear, MMM Neck- supple, no JVD, no adenopathy, no thyromegaly; carotids +2/2, no bruits appreciated Lungs- b/l rales and rhonchi, good air entry BL Heart- normal rate, regular rhythm; no murmur, no gallop, no rub appreciated Abdomen- normal bowel sounds, nondistended, soft, nontender, no masses or hepatosplenomegaly Extremities- no pretibial edema, no calf tenderness; peripheral pulses intact Neuro- decreased hearing otherwise CN 2-12 grossly intact; motor 5/5 bilaterally;sensation 100% on all extremities; no other gross focal neurologic deficits Skin- warm & dry Results & Data Vital Signs (Past 12 Hours) Vital Signs Temp Pulse Pulse Resp BP Pulse Ox O2 Del Method 10/14/24 07:15 36.6 C 81 19 96/60 L 93 Room Air 10/14/24 07:00 80 10/14/24 03:44 36.6 C 82 16 120/68 94 Room Air 10/13/24 23:35 36.9 C 85 16 115/88 98 Room Air Laboratory Results Abnormal lab results 10/14/24 Range/Units 06:41 RBC 3.20 L (4.20-5.40) M/uL Hgb 9.8 L (12.0-16.0) g/dl Hct 31.1 L (37.0-47.0) % MCHC 31.5 L (32.0-36.0) g/dL RDW Std Deviation 59.9 H (36.4-46.3) fL RDW Coeff of Francisco Javier 16.9 H (11.5-14.5) % Lymph # (Auto) 0.83 L (1.20-3.40) K/uL Bond # (Auto) 0.88 H (0.11-0.59) K/uL Chloride 112 H (98-107) mmol/L Carbon Dioxide 19 L (21-32) mmol/L BUN 45 H (6-23) mg/dl Creatinine 1.54 H (0.6-1.2) mg/dl BUN/Creatinine Ratio 29.2 H (10-20) AST 53 H (13-39) U/L Alkaline Phosphatase 138 H (34-104) U/L Total Protein 5.3 L D (6.0-8.3) gm/dl Albumin 3.0 L (3.4-5.0) gm/dl Globulin 2.3 L (2.5-4.0) gm/dl Diagnostic Findings Chest X-Ray 10/12/24 19:48 Exam(s): XR CXR 1 VIEW EXAM: XR Chest, 1 View CLINICAL HISTORY: Reason for exam: Sepsis. TECHNIQUE: Frontal view of the chest. COMPARISON: Chest x-ray 10/09/2023 FINDINGS: Lungs: Low lung volumes of pulmonary vascular congestion. Pleural space: No pleural effusion. No pneumothorax. Heart: Cardiomegaly. Tubes, lines and devices: Pacemaker leads in place. IMPRESSION: Low lung volumes of pulmonary vascular congestion. Electronically signed by: Guillaume Roca MD 10/12/24 21:09 PM Abdomen/Pelvis CT 10/12/24 23:32 EXAM: CT abd pelvis wo con CLINICAL HISTORY: n/v, sepsis TECHNIQUE: Non-contrast CT of the abdomen and pelvis was performed, with the following protocol: axial images, and reconstructed coronal and sagittal images. No intravenous contrast was administered. One of the following dose reduction techniques was utilized for this exam: Automated exposure control, adjustment of the mA and/or kV according to patient size, and use of iterative reconstruction. COMPARISON: 05/13/2024 CT abd pelvis. FINDINGS: Abdomen: Liver: Normal in size, shape, and density. No focal lesions, cysts, or masses were identified. Gallbladder and Biliary System: Surgical clips seen in gall bladder fossa. Pancreas: Significant fatty replacement of pancreas likely due to age Spleen: Normal in size, shape, and density. No splenic lesions or masses were identified. Kidneys and Adrenal Glands: Both kidneys are borderline normal in size, shape, and position. Right kidney measures 86 mm and left kidney measures 80 mm. A cortical cyst is identified at the upper pole of the left kidney measuring 42 x 24 mm Few cortical cysts are identified in right kidney largest at the interpolar region measuring 27 x 26 mm Calcific foci are identified in both kidneys likely vascular calcifications, rather than calculi Bilateral perinephric fat stranding Both adrenal glands appear mildly bulky Appendix: The appendix is not separately visualized Pelvis: Urinary Bladder: Urinary bladder is almost empty at the time of examination, with foleys Uterus is not visualized likely due to surgery. No gross abnormality seen in both adnexa Peritoneal and Retroperitoneal Structures: No free fluid or abnormal fluid collections were identified within the abdomen or pelvis. No lymphadenopathy was noted. Moderate atherosclerotic calcifications seen in aorta and iliac arteries. Few prominent lymph nodes are identified in para-aortic location, largest is measuring 11 mm Bowel: The visualized bowel loops are normal in caliber and appearance. No evidence of bowel obstruction or wall thickening. Mild fecal loading of the large bowel loop was seen. Few diverticulae are identified in the sigmoid colon. No features of diverticulitis The suggestion of mild submucosal fat deposition along the ascending colon which was also seen in prior examination Bones and Soft Tissues: Mild to moderate scoliosis was identified and visualized spine with convexity towards right side. Degenerative changes seen in the visualized spine with osteophytes, with mild retrolisthesis seen at all levels of the lumbar spine, with reduced disc heights and intervening vacuum phenomena, and schmorl's node, and multilevel facet arthropathy. Partial compression of the T12 vertebral body, with lucencies and sclerosis along the inferior endplate. Implants are identified in the right proximal femur Chest: On covered sections of the chest, heart size is enlarged with mild pericardial effusion and a partially visualized pacemaker. Patchy groundglass opacification and septal thickening were seen in both lungs. Minimal pleural thickening/trace effusion seen bilaterally, IMPRESSION: 1. No renal tract obstruction on either side. 2. Uncomplicated colonic diverticulosis, these were also present in prior examination. 3. Bilateral renal cortical cysts and, calcific densities likely vascular calcifications, stable. 4. Interval stable bilateral perinephric fat stranding. 5. Redemonstration of prominent para-aortic lymph nodes showing interval progression in number and sizes. 6. Mild interval progression of generalized abdominal fat stranding. 7. Interval stable osseous findings 8. The visualized lung findings show interval progression 9. Minimal pleural thickening/trace effusion seen bilaterally, more evident and present examination 10. Mild progression of pericardial effusion Electronically signed by Randee Hobbs 10-13-2024 01:[address] 10/12/24 23:32 EXAM: CT chest diagnostic wo con CLINICAL HISTORY: aspiration, Sepsis TECHNIQUE: Contiguous axial CT images of the chest were acquired without administration of intravenous contrast. Coronal and sagittal reconstructions were obtained. One of the following dose reduction techniques were utilized for this exam: Automated exposure control, adjustment of the mA and/or kV according to patient size, use of iterative reconstruction. COMPARISON: 01/13/2024, CT chest, and 07/19/2024 CR. FINDINGS: Lungs: Groundglass opacification and septal thickening seen in both lungs No pulmonary nodules or masses are identified. Minimal pleural thickening/trace effusion identified bilaterally Mediastinum: The mediastinum is normal in size and contour. Few prominent lymph nodes are identified in right paratracheal and precarinal location largest in precarinal location measures 10 mm The heart size appears enlarged. Mild to moderate pericardial effusion is present Hilar Structures: The hilar structures appear normal without enlargement or abnormality. Low attenuation of aorta in relation to the interventricular septum Senile calcifications seen A prosthetic valve is identified A dual-chamber pacemaker is identified with leads are appropriately placed The pulmonary trunk is borderline dilated and measures 30 mm Trachea and Main Bronchi: The trachea and main bronchi are patent without evidence of obstruction or abnormality. Chest Wall: The chest wall is unremarkable with no evidence of soft tissue or bony abnormalities. 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 Interval progression of the groundglass opacification and septal thickening seen in both lungs, likely due to pulmonary edema or insufficient inspiration. 2. Interval no gross change in cardiomegaly, however, there is a progression of pericardial effusion. Stable cardiomegaly since prior x-ray. 3. Minimal pleural thickening/trace effusion bilaterally. This was not seen on prior x-ray. 4. Mild progression of the number and size of mediastinal lymph nodes. 5. Low attenuation of aorta in relation to the interventricular septum, likely due to anemia, is more evident and the present examination. 6. Borderline dilated interval stable pulmonary trunk. 7. Interval stable cardiac pacemaker, and prosthetic valve. Electronically signed by Randee Hobbs 10-13-2024 01:34 AM Medications Administered Current Inpatient Medications Allopurinol (Allopurinol 300 Mg Tab) 300 mg PO HS [facility] Stop: 11/12/24 20:59 Last Admin: 10/14/24 20:32 Dose: 300 mg Aspirin (Aspirin 81 Mg Ectab) 81 mg PO QAM [facility] Stop: 11/12/24 08:59 Last Admin: 10/14/24 08:43 Dose: 81 mg Atorvastatin Calcium (Atorvastatin 20 Mg Tab) 20 mg PO QPM [facility] Stop: 11/12/24 20:59 Last Admin: 10/14/24 20:32 Dose: 20 mg Azithromycin (Azithromycin 250 Mg Tab) 500 mg PO QAM [facility] Stop: 10/15/24 09:01 Last Admin: 10/14/24 08:43 Dose: 500 mg Carbamide Peroxide (Carbamide Peroxide 6.5% 15 Ml Btl) 10 drops OTR HS [facility] Stop: 10/17/24 20:59 Last Admin: 10/14/24 02:00 Dose: Not Given Dextrose (Dextrose 50% 50 Ml Syringe) 25 - 50 ml IV UD PRN; Protocol PRN Reason: Hypoglycemia Protocol Stop: 11/12/24 01:23 Diclofenac Sodium (Diclofenac Sod 1% Gel 100 Gm Tube) 4 gm EXT QID [facility]; Protocol Stop: 11/12/24 08:59 Last Admin: 10/14/24 20:31 Dose: 4 gm Ferrous Sulfate (Ferrous Sulfate 325 Mg Tab) 325 mg PO QAM [facility] Stop: 11/12/24 08:59 Last Admin: 10/14/24 08:44 Dose: 325 mg Glucagon (Glucagon For Inj 1 Mg Vial) 1 mg SQ UD PRN; Protocol PRN Reason: Hypoglycemia Protocol Stop: 11/12/24 01:23 Glucose (Glucose 40% Gel 15 Gm Tube) 15 - 30 gm PO UD PRN; Protocol PRN Reason: Hypoglycemia Protocol Stop: 11/12/24 01:23 Glucose (Glucose 10 Tab/Tube) 4 - 8 tab PO UD PRN; Protocol PRN Reason: Hypoglycemia Protocol Stop: 11/12/24 01:23 Heparin Sodium (Porcine) (Heparin Sod 5,000 Unit/0.5 Ml Vial) 5,000 units SQ Q12 [facility] Stop: 11/13/24 20:59 Last Admin: 10/14/24 20:31 Dose: 5,000 units Cefepime HCl (Maxipime 2000mg) 2,000 mg in 20 mls @ 5 mls/min IV Q24H [facility]; Protocol Stop: 10/18/24 19:59 Last Admin: 10/14/24 20:31 Dose: 5 mls/min Insulin Aspart (Insulin Aspart Per Unit Charge) 0 units SC ACHS [facility] Stop: 11/12/24 07:29 Last Admin: 10/14/24 20:23 Dose: Not Given Levalbuterol HCl (Levalbuterol Tartrate 15 Gm Hfa.Aer.Ad) 1 puffs INH Q4H PRN PRN Reason: Shortness Of Breath Or Wheezing Stop: 11/12/24 01:23 Levothyroxine Sodium (Levothyroxine Sodium 175 Mcg Tablet) 175 mcg PO DAILYBB [facility] Stop: 11/12/24 06:29 Last Admin: 10/14/24 05:39 Dose: 175 mcg Metoprolol Succinate (Metoprolol Succ 50mg Ext Rel Tab) 50 mg PO BID [facility] Stop: 11/13/24 20:59 Last Admin: 10/14/24 20:32 Dose: 50 mg Miscellaneous (Carbohydrates For Hypoglycemia ) 15 - 30 gm PO UD PRN PRN Reason: Hypoglycemia Protocol Stop: 11/12/24 01:23 Montelukast Sodium (Montelukast Sodium 10 Mg Tablet) 10 mg PO PM [facility] Stop: 11/12/24 20:59 Last Admin: 10/14/24 20:32 Dose: 10 mg Nitroglycerin (Nitroglycerin Sl 0.4 Mg/Tab Tab) 0.4 mg SL Q5M PRN PRN Reason: Chest Pain Stop: 11/12/24 01:23 Ondansetron HCl (Ondansetron Inj 2 Mg/Ml 2 Ml Vial) 4 mg IV Q6H PRN PRN Reason: Nausea And Vomiting Stop: 11/12/24 08:16 Last Admin: 10/13/24 08:30 Dose: 4 mg Pantoprazole Sodium (Pantoprazole 40 Mg Tab) 40 mg PO AMHS [facility] Stop: 11/12/24 08:59 Last Admin: 10/14/24 20:32 Dose: 40 mg Sertraline HCl (Sertraline Hcl 50 Mg Tablet) 150 mg PO QAM [facility] Stop: 11/12/24 08:59 Last Admin: 10/14/24 08:44 Dose: 150 mg Umeclidinium/Vilanterol (Umeclidinium/Vilanterol 62.5/25mcg 7 Puffs/Inhaler) 1 puffs INH DAILY [facility] Stop: 11/12/24 08:59 Last Admin: 10/14/24 08:42 Dose: 1 puffs Vitamin D (Cholecalciferol 25 Mcg (1000 Units) Tab) 100 mcg PO QAM [facility] Stop: 11/12/24 08:59 Last Admin: 10/14/24 08:43 Dose: 100 mcg PG Care Time/CCT Total # of Minutes Spent Total Time Spent with Patient: Total time spent is greater than 50% in coordination of care (as documented) at patient's floor/unit and/or counseling patient: [place] [address] IN/OBS CONSULT LVL 3,45M Patient Type New Medical Decision Making Low Complexity
--- NOTE | 2024-10-14 10:20 | Gastrointestinal Consultation ---
Date of Consultation October 14, 2024 Assessment & Plan (1) Diarrhea: Plan Patient admitted with confusion and diarrhea. found to have norovirus and e coli on stool studies. she appears to be doing better today as per her son. Typically would treat these with supportive care. she is on cefepime and azithromycin currently. Can continue to monitor. Further recommendations to follow, see Dr. Marjan acosta. Supervising Physician Co-Signing Physician Notes I personally saw and examined the patient. I have reviewed the chart and agree with the documentation provided by the PERFORMANCE IMPROVEMENT MANAGER including discussion about the assessment, treatment and plan. Briefly, 84 year old female with past medical history significant for diabetes, secondary hyperparathyroidism, CKD stage III, hypercholesterolemia, peripheral vascular disease, obstructive sleep apnea not on CPAP, moderate persistent asthma, COPD, paroxysmal atrial fibrillation, status post watchman left atrial appendage closure device, history of mitral linda ve clip implantation, pulmonary hypertension, chronic diastolic CHF, history of angiodysplasia of colon with hemorrhage, history of aneurysm of left carotid artery, severe tricuspid regurgitation, history of CAD, Mnire's disease, spinal stenosis, depression, history of endometrial cancer, history of TIA who presented with concern for acute change in her mental status from [facility] where she lives. She was having diarrhea and was found to have E coli as well as norovirus. She was started on cefepime and azithromycin. She does feel better since admission. Infectious colitis on antibiotics and improving. Will treat her supportively and no acute role for endoluminal evaluation. If diarrhea persists, can use cholestyramine to help firm it up. GI will sign off we have no further recommendations History of Present Illness Reason for Consultation: sepsis, norovirus, +EAEC infection Requesting Physician: Ashley Carolina MD Attending Physician: Ashley Wilkinson MD History of Present Illness Patient is an 84 year old female with past medical history significant for diabetes, secondary hyperparathyroidism, CKD stage III, hypercholesterolemia, peripheral vascular disease, obstructive sleep apnea not on CPAP, moderate persistent asthma, COPD, paroxysmal atrial fibrillation, status post watchman left atrial appendage closure device, history of mitral valve clip implantation, pulmonary hypertension, chronic diastolic CHF, history of angiodysplasia of colon with hemorrhage, history of aneurysm of left carotid artery, severe tricuspid regurgitation, history of CAD, Mnire's disease, spinal stenosis, depression, history of endometrial cancer, history of TIA who presented with concern for acute change in her mental status from [facility] where she lives. She was having diarrhea and was found to have E coli as well as norovirus. She was started on cefepime and azithromycin. She does feel better since admission. less confusion. Spoke with patients son at bedside and patient seems much better today besides ongoing diarrhea. rest of GI ros are unremarkable. Allergies Allergy/AdvReac Type Severity Reaction Status Date / Time Sulfa (Sulfonamide Allergy Severe Severe Verified 10/12/24 22:01 Antibiotics) rxn: rash and hives celecoxib Allergy Intermediate Rash/Hives/ Verified 10/12/24 22:01 Itching. cephalexin Allergy Intermediate Rash/Hives/ Verified 10/12/24 22:01 Itching. furosemide Allergy Intermediate Rash/Hives/ Verified 10/12/24 22:01 Itching. gabapentin Allergy Intermediate Rash/Hives/ Verified 10/12/24 22:01 Itching. pregabalin Allergy Intermediate Rash/Hives/ Verified 10/12/24 22:01 Itching. meclizine Allergy Unknown Unknown Verified 10/12/24 22:01 methylprednisolone Allergy Unknown Rash/Hives/ Verified 10/12/24 22:01 Itching. Penicillins Allergy Unknown Unknown. Verified 10/12/24 22:01 prednisone Allergy Unknown Rash/Hives/ Verified 10/12/24 22:01 Itching. vancomycin Allergy Unknown Jodi Verified 10/12/24 22:01 syn. . nickel Allergy Unknown Verified 10/12/24 22:01 dexamethasone AdvReac Intermediate Steroid Verified 10/12/24 22:01 psychosis. Home Medications Medication Instructions Recorded Confirmed Type montelukast 10 mg tablet 10 mg PO PM 04/08/19 10/12/24 History atorvastatin 20 mg tablet 20 mg PO QPM 11/26/21 10/12/24 History levalbuterol tartrate 45 1 puff inhalation Q4H PRN 08/07/22 10/12/24 History mcg/actuation aerosol inhaler Shortness Of Breath Or Wheezing (Xopenex HFA) ipratropium bromide 21 mcg (0.03 2 spray intranasal DAILY PRN 12/06/22 10/12/24 History %) nasal spray rhinorrhea allopurinol 300 mg tablet 300 mg PO HS 08/14/23 10/12/24 History levothyroxine 175 mcg tablet 175 mcg PO DAILYBB 03/21/24 10/12/24 History buspirone 5 mg tablet 5 mg PO AMHS 05/13/24 10/12/24 History acetaminophen 500 mg tablet 500 mg PO Q8 PRN Fever Or Pain 07/15/24 10/12/24 History aspirin 81 mg tablet,delayed 81 mg PO QAM 07/15/24 10/12/24 History release ferrous sulfate 325 mg (65 mg 325 mg PO QAM 07/15/24 10/12/24 History iron) tablet,delayed release glycopyrrolate 9 mcg-formoterol 2 puff inhalation BID 07/15/24 10/12/24 History 4.8 mcg HFA aerosol inhaler (Bevespi Aerosphere) oxycodone 5 mg tablet 5 mg PO Q6H PRN PAIN 9-10 07/15/24 10/12/24 History pantoprazole 40 mg tablet,delayed 40 mg PO AMHS 07/15/24 10/12/24 History release sertraline 150 mg capsule 150 mg PO QAM 07/15/24 10/12/24 History potassium chloride 10 mEq 10 meq PO UD #20 tabs 07/27/24 10/12/24 Rx tablet,extended release carbamide peroxide 6.5 % ear drops 10 drp OTR HS 10/12/24 10/12/24 History cholecalciferol (vitamin D3) 100 100 mcg PO QAM 10/12/24 10/12/24 History mcg (4,000 unit) tablet diclofenac sodium 1 % topical gel 4 g topical QID 10/12/24 10/12/24 History (Voltaren Arthritis Pain) fentanyl 12 mcg/hr transdermal 1 patch transdermal [id number] 10/12/24 10/12/24 History patch melatonin 10 mg tablet 10 mg PO HS 10/12/24 10/12/24 History ondansetron 4 mg disintegrating 4 mg PO Q6H PRN Nausea And Vomiting 10/12/24 10/12/24 History tablet potassium chloride 10 mEq 10 meq PO UD 10/12/24 10/12/24 History tablet,extended release promethazine 25 mg/mL injection 12.5 mg IM Q8 PRN NAUESA/VOMITING 10/12/24 10/12/24 History solution saliva stimulant comb. no.3 2 spray mucous membrane .EVERY 1 10/12/24 10/12/24 History (Biotene Moisturizing Mouth HOUR PRN Dry Mouth mucosal spray) torsemide 10 mg tablet 30 mg PO UD 10/12/24 10/12/24 History torsemide 40 mg tablet 40 mg PO UD 10/12/24 10/12/24 History Patient History Medical History Generalized weakness Pericardial effusion Low back pain Angio-edema Nausea Leukocytosis Near syncope Hypotension Dehydration TIFFANY (acute kidney injury) Near syncope Elevated brain natriuretic peptide (BNP) level Pneumonia Atrial flutter Carotid artery aneurysm Prolonged QT interval Atrial fibrillation with RVR DM type 2 (diabetes mellitus, type 2) Encounter for pre-operative examination Cholelithiasis Cholecystitis Chest pain at rest Pulmonary emphysema Osteoarthritis of right knee HTN (hypertension) Surgical History History of hysterectomy History of cholecystectomy Family History Father Diabetes Social History Smoking Status: Former smoker Tobacco Type: Cigarettes packs per day: 1.5; Cigarettes Per Day: 30; Second Hand Exposure: No; Do You Dip or Chew Tobacco: No; Hx Alcohol Use: No Hx Substance Use: No Preferred Language: Belarusian Communication Ability: Impaired Vaccine Manager Required: No Beliefs That Will Affect Care: None marital status: Current Living Situation: Custodial Feels Safe at Home: Yes Assistive Devices: Glasses, Hearing Aid - Right and Walker Review of Systems Review of Systems: All systems reviewed & are unremarkable except as noted in HPI & below Physical Exam Constitutional: WD/WN, vitals as above Respiratory: normal respiratory effort, lungs clear to auscultation Cardiovascular: Rate/Rhythm: regular rate and regular rhythm Gastrointestinal (Abdomen): normal bowel sounds, soft, nontender, no hepatosplenomegaly Psychiatric: Orientation: alert and oriented x 3 Affect: euthymic affect Results & Data Vital Signs (Past 12 Hours) Vital Signs Temp Pulse Pulse Resp BP Pulse Ox O2 Del Method 10/14/24 07:15 97.9 F 81 19 96/60 L 93 Room Air 10/14/24 07:00 80 10/14/24 03:44 97.9 F 82 16 120/68 94 Room Air 10/13/24 23:35 98.4 F 85 16 115/88 98 Room Air Coding Level of Care Code 38996 INT INP/OBS CARE MIN Diagnoses Diarrhea R19.7
[2024-10-14] MEDS ORDERED: SODIUM CHLORIDE 0.9% 500 ML IV SCH (13:30)
--- NOTE | 2024-10-14 15:33 | Hospitalist Progress Note ---
Date of Service October 14, 2024 Assessment & Plan (1) Sepsis: Plan Pt is an 84-year-old female with past medical history significant for diabetes, secondary hyperparathyroidism, CKD stage III, hypercholesterolemia, peripheral vascular disease, obstructive sleep apnea not on CPAP, moderate persistent asthma, COPD, paroxysmal atrial fibrillation, status post watchman left atrial appendage closure device, history of mitral valve clip implantation, pulmonary hypertension, chronic diastolic CHF, history of angiodysplasia of colon with hemorrhage, history of aneurysm of left carotid artery, severe tricuspid regurgitation, history of CAD, Mnire's disease, spinal stenosis, depression, history of endometrial cancer, history of TIA who presented with concern for acute change in her mental status. Sepsis, POA Acute metabolic Encephalopathy Norovirus infection Enteroaggregative E coli Infection Presented with confusion, tachycardia, leukocytosis and soft blood pressures Procalcitonin elevated at 1.5. Lactic acid 1.6 Pt with copious diarrhea Stool culture positive for Norovirus and EAEC respiratory viral panel negative CT abd pelvis noting known prominent paraaortic lymph nodes UA with urine Cx NGTD Blood cultures x 2 sets NGTD Continue with Cefepime and azithromycin Discontinue doxycycline GI consulted, appreciate recs Given recurrent admissions palliative care also consulted after discussion with pt's son and daughter at bedside, appreciate recs IV fluids Pt likely confused in setting of above Continue to monitor Rapid A-fib/a flutter Sick sinus syndrome status post pacemaker Loculated pericardial effusion EKG noting a flutter/a fib Echo with EF 60-65%, LA severely dilated and moderate loculated pericardial effusion Received dose of IV Lopressor in the ER ER discussed with cardiology and loaded with IV digoxin to 250 mcg S/p Watchman procedure Status post mitral valve clip Not on anticoagulation Cardiology consulted, appreciate recs -no dig, continue metoprolol Elevated troponin Trops elevated in 50s to 70s before downtrending EKG noting a flutter/a fib Echo with EF 60-65%, LA severely dilated and moderate loculated pericardial effusion Likely demand ischemia Continue to monitor on telemetry Chronic diastolic CHF Severe tricuspid regurgitation Holding torsemide and potassium supplements Gentle fluids Monitor for volume overload Cardiology on board as above CKD stage III Presented with creatinine 1.6 around baseline Continue to monitor Chronic Anemia Hgb at baseline 9-10 range Bleeding lesion on abdomen resolved, re-start hep SQ Continue to monitor H/H Sleep apnea Not using CPAP Will use oxygen Nocturnal pulse oximetry when stable Diabetes Diet controlled Sliding scale HbA1c 6.6 Hypothyroidism Continue Synthroid Hyperlipidemia On statin Peripheral vascular disease On aspirin and statin History of TIA On aspirin and statin Depression On buspirone and sertraline Will hold buspirone for now Chronic pain since hip surgery Hold fentanyl patch and oxycodone as patient is drowsy Diet: Full liquids, advance as tolerated DVT prophylaxis: Heparin subcu restarted SCDs otherwise Dispo: from [facility], PT/OT services once medically stable. palliative on board Admission and Anticipated Discharge Date Admission Date: October 12, 2024 Subjective patient was seen sitting in a chair near her bed More alert today and states that she still having fecal incontinence still not as much Alert and oriented x 2 Denying any chest pain or shortness of breath Able to communicate today without falling asleep Review of Systems Review of Systems: All systems reviewed & are unremarkable except as noted in Subjective Physical Exam Physical Exam: General: drowsy Neuro: drowsy HEENT: NC/AT CV: irregular rate and rhythm Resp: no increased effort of breathing Abdomen: Soft, nontender Extremities: No edema in lower extremities bilaterally. Results & Data Results & Data Vital Signs (Past 12 Hours) Vital Signs Temp Pulse Pulse Resp BP Pulse Ox O2 Del Method 10/14/24 15:00 74 10/14/24 12:37 Room Air 10/14/24 10:45 36.7 C 79 18 95/58 L 95 Room Air 10/14/24 07:15 36.6 C 81 19 96/60 L 93 Room Air 10/14/24 07:00 80 10/14/24 03:44 36.6 C 82 16 120/68 94 Room Air Diagnostic Findings Chest X-Ray 10/12/24 19:48 Exam(s): XR CXR 1 VIEW EXAM: XR Chest, 1 View CLINICAL HISTORY: Reason for exam: Sepsis. TECHNIQUE: Frontal view of the chest. COMPARISON: Chest x-ray 10/09/2023 FINDINGS: Lungs: Low lung volumes of pulmonary vascular congestion. Pleural space: No pleural effusion. No pneumothorax. Heart: Cardiomegaly. Tubes, lines and devices: Pacemaker leads in place. IMPRESSION: Low lung volumes of pulmonary vascular congestion. Electronically signed by: Guillaume Roca MD 10/12/24 21:09 PM Abdomen/Pelvis CT 02/18/25 23:32 EXAM: CT abd pelvis wo con CLINICAL HISTORY: n/v, sepsis TECHNIQUE: Non-contrast CT of the abdomen and pelvis was performed, with the following protocol: axial images, and reconstructed coronal and sagittal images. No intravenous contrast was administered. One of the following dose reduction techniques was utilized for this exam: Automated exposure control, adjustment of the mA and/or kV according to patient size, and use of iterative reconstruction. COMPARISON: 05/13/2024 CT abd pelvis. FINDINGS: Abdomen: Liver: Normal in size, shape, and density. No focal lesions, cysts, or masses were identified. Gallbladder and Biliary System: Surgical clips seen in gall bladder fossa. Pancreas: Significant fatty replacement of pancreas likely due to age Spleen: Normal in size, shape, and density. No splenic lesions or masses were identified. Kidneys and Adrenal Glands: Both kidneys are borderline normal in size, shape, and position. Right kidney measures 86 mm and left kidney measures 80 mm. A cortical cyst is identified at the upper pole of the left kidney measuring 42 x 24 mm Few cortical cysts are identified in right kidney largest at the interpolar region measuring 27 x 26 mm Calcific foci are identified in both kidneys likely vascular calcifications, rather than calculi Bilateral perinephric fat stranding Both adrenal glands appear mildly bulky Appendix: The appendix is not separately visualized Pelvis: Urinary Bladder: Urinary bladder is almost empty at the time of examination, with foleys Uterus is not visualized likely due to surgery. No gross abnormality seen in both adnexa Peritoneal and Retroperitoneal Structures: No free fluid or abnormal fluid collections were identified within the abdomen or pelvis. No lymphadenopathy was noted. Moderate atherosclerotic calcifications seen in aorta and iliac arteries. Few prominent lymph nodes are identified in para-aortic location, largest is measuring 11 mm Bowel: The visualized bowel loops are normal in caliber and appearance. No evidence of bowel obstruction or wall thickening. Mild fecal loading of the large bowel loop was seen. Few diverticulae are identified in the sigmoid colon. No features of diverticulitis The suggestion of mild submucosal fat deposition along the ascending colon which was also seen in prior examination Bones and Soft Tissues: Mild to moderate scoliosis was identified and visualized spine with convexity towards right side. Degenerative changes seen in the visualized spine with osteophytes, with mild retrolisthesis seen at all levels of the lumbar spine, with reduced disc heights and intervening vacuum phenomena, and schmorl's node, and multilevel facet arthropathy. Partial compression of the T12 vertebral body, with lucencies and sclerosis along the inferior endplate. Implants are identified in the right proximal femur Chest: On covered sections of the chest, heart size is enlarged with mild pericardial effusion and a partially visualized pacemaker. Patchy groundglass opacification and septal thickening were seen in both lungs. Minimal pleural thickening/trace effusion seen bilaterally, IMPRESSION: 1. No renal tract obstruction on either side. 2. Uncomplicated colonic diverticulosis, these were also present in prior examination. 3. Bilateral renal cortical cysts and, calcific densities likely vascular calcifications, stable. 4. Interval stable bilateral perinephric fat stranding. 5. Redemonstration of prominent para-aortic lymph nodes showing interval progression in number and sizes. 6. Mild interval progression of generalized abdominal fat stranding. 7. Interval stable osseous findings 8. The visualized lung findings show interval progression 9. Minimal pleural thickening/trace effusion seen bilaterally, more evident and present examination 10. Mild progression of pericardial effusion Electronically signed by Randee Hobbs 10-13-2024 01:[address] 10/12/24 23:32 EXAM: CT chest diagnostic wo con CLINICAL HISTORY: aspiration, Sepsis TECHNIQUE: Contiguous axial CT images of the chest were acquired without administration of intravenous contrast. Coronal and sagittal reconstructions were obtained. One of the following dose reduction techniques were utilized for this exam: Automated exposure control, adjustment of the mA and/or kV according to patient size, use of iterative reconstruction. COMPARISON: 01/13/2024, CT chest, and 07/19/2024 CR. FINDINGS: Lungs: Groundglass opacification and septal thickening seen in both lungs No pulmonary nodules or masses are identified. Minimal pleural thickening/trace effusion identified bilaterally Mediastinum: The mediastinum is normal in size and contour. Few prominent lymph nodes are identified in right paratracheal and precarinal location largest in precarinal location measures 10 mm The heart size appears enlarged. Mild to moderate pericardial effusion is present Hilar Structures: The hilar structures appear normal without enlargement or abnormality. Low attenuation of aorta in relation to the interventricular septum Senile calcifications seen A prosthetic valve is identified A dual-chamber pacemaker is identified with leads are appropriately placed The pulmonary trunk is borderline dilated and measures 30 mm Trachea and Main Bronchi: The trachea and main bronchi are patent without evidence of obstruction or abnormality. Chest Wall: The chest wall is unremarkable with no evidence of soft tissue or bony abnormalities. 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 Interval progression of the groundglass opacification and septal thickening seen in both lungs, likely due to pulmonary edema or insufficient inspiration. 2. Interval no gross change in cardiomegaly, however, there is a progression of pericardial effusion. Stable cardiomegaly since prior x-ray. 3. Minimal pleural thickening/trace effusion bilaterally. This was not seen on prior x-ray. 4. Mild progression of the number and size of mediastinal lymph nodes. 5. Low attenuation of aorta in relation to the interventricular septum, likely due to anemia, is more evident and the present examination. 6. Borderline dilated interval stable pulmonary trunk. 7. Interval stable cardiac pacemaker, and prosthetic valve. Electronically signed by Randee Hobbs 10-13-2024 01:34 AM (1) Sepsis Sepsis acute organ dysfunction status: with acute organ dysfunction Sepsis type: sepsis due to unspecified organism Severe sepsis acute organ dysfunction type: unspecified
--- NOTE | 2024-10-14 16:02 | Electrocardiogram Report ---
Test Reason : Blood Pressure : */* mmHG Vent. Rate : 86 BPM Atrial Rate : * BPM P-R Int : * ms QRS Dur : 72 ms QT Int : 340 ms P-R-T Axes : * 12 191 degrees QTcB Int : 406 ms Atrial fibrillation witrh some aberrancy Low voltage QRS Nonspecific ST and T wave abnormality Abnormal ECG When compared with ECG of 13-Oct-2024 05:51, Atrial fibrillation has replaced Atrial flutter QT has shortened Confirmed by Elmer Dahl ([id number]) on 10/14/2024 4:02:23 PM Referred By: [facility] Confirmed By: Elmer Dahl
[2024-10-14] MEDS: HEPARIN SOD 5,000 UNIT/0.5 ML VIAL SQ SCH (20:31)
[2024-10-14] MEDS: METOPROLOL SUCC 50MG EXT REL TAB PO SCH (20:32)
[2024-10-14] MEDS ORDERED: oxyCODONE HCL IR 5 MG TAB (IMMEDIATE RELEASE) PO PRN (21:00)
[2024-10-14] MEDS: MELATONIN 3 MG TAB PO PRN (21:51)
[2024-10-14] MEDS: ACETAMINOPHEN 500 MG TAB PO PRN (21:51)
[2024-10-15 06:57] LABS: Basophils # (auto) 0.03 K/uL (0.00-0.20); Basophils % (auto) 0.3 %; Eosinophils # (auto) 0.68 K/uL (0.00-0.50); Eosinophils % (auto) 7.9 %; Hematocrit (blood only) 30.5 % (37.0-47.0); Hemoglobin 9.8 g/dl (12.0-16.0); Immature Granulocytes # (auto) 0.05 K/uL (0.01-0.20); Immature Granulocytes % (auto) 0.6 %; Lymphocytes # (auto) 1.53 K/uL (1.20-3.40); Lymphocytes % (auto) 17.8 %; Mean Corpuscular Hemoglobin 30.8 pg (25.0-34.0); Mean Corpuscular Hgb Conc 32.1 g/dL (32.0-36.0); Mean Corpuscular Volume 95.9 fL (80.0-100.0); Mean Platelet Volume 12.1 fL (9.4-12.4); Monocytes # (auto) 1.19 K/uL (0.11-0.59); Monocytes % (auto) 13.9 %; Neutrophils % (auto) 59.5 %; Nucleated RBC # (auto) 0.02 K/uL (0.00-0.12); Nucleated RBC % (auto) 0.2 %; Platelet Count 147 K/uL (130-400); RDW Coefficient of Variation 16.8 % (11.5-14.5); RDW Standard Deviation 58.9 fL (36.4-46.3); Red Blood Count 3.18 M/uL (4.20-5.40); White Blood Count 8.58 K/ul (4.8-10.8)
[2024-10-15 07:21] LABS: Albumin Globulin Ratio 1.3 (0.9-2); BUN Creatinine Ratio 29.1 (10-20); Bilirubin,Total 0.4 mg/dl (0.2-1.0); Calcium 8.4 mg/dl (8.6-10.3); Creatinine Clr Calc Pharmacy 24.5 ml/min; Globulin 2.3 gm/dl (2.5-4.0); Magnesium 1.9 mg/dl (1.7-2.4); Phosphorus 3.9 mg/dl (2.5-4.9); Total Protein 5.3 gm/dl (6.0-8.3)
--- NOTE | 2024-10-15 08:55 | Cardiology Progress Note ---
Date of Service October 15, 2024 Assessment & Plan (1) Sepsis: (2) Confusion: (3) Atrial flutter with rapid ventricular response: (4) Diastolic congestive heart failure: Plan Assessment 84 year old female admitted with concerns for sepsis, found to be in A-flutter with RVR. Unclear if patient was on her home rate control medications. Cardiology requested for further evaluation. Plan: 1. Sepsis 2. confusion -Patient admitted with acute confusion. Family does question if there is some degree of baseline dementia; however, this is an acute change. Elevated white count and Procalcitonin levels. patient was given IV fluids and initiated on IV antibiotics after blood cultures were drawn. Suspect her acute confusion is s/t infection. continued management per primary team. 3. Atrial flutter with RVR -A-fib noted on telemetry rates 100-126 bpm. occasional PVCs. She is not on any rate control therapies. Start Metoprolol tartrate 25mg PO TID at this time and assess rate response. -Elevated rates likely precipitated by acute infectious process, but also unsure if patient was receiving her prescribed beta caridad therapy prior to hospitalization. -Not on oral anticoagulation therapies as she has a watchman device. 4. Diastolic congestive heart failure -Endorses some mild dyspnea which may be multifactorial. -elevated rates may also drive hypervolemia in addition to receiving IVF per sepsis protocol. -PO Torsemide current on hold. -Awaiting echocardiogram. -Renal function is stable and therefore pending echo results, may resume diuretic therapies. 10/14/2024: -Patient has improved from a cardiac perspective. -heart rates now controlled with addition of Metoprolol. Stop Metoprolol tartrate in favor of switching to Toprol xl 50mg PO BID, first dose tonight. -Continued management of acute infection by primary team. -PO Torsemide on hold today s/t loose stools. remain on hold at this time -Renal function remains stable. 10/15/2024: -Patient is stable from a cardiac perspective. Heart rates now controlled and no acute events on telemetry overnight. Continue Toprol xl 50mg PO BID -Euvolemic on today's exam. -Continued management of acute infection by primary team. -PO Torsemide remains on hold today, may be resumed when patient's diarrhea has resolved and Cr is stable (slightly worse today) -No further cardiac workup is needed at this time. -Cardiology will sign off, please reach out with any new questions/concerns. Case has been discussed with Dr. Márquez. Further recommendations regarding plan of care as per his assessment. I spent a total of 30 minutes on the date of service in preparation, delivery, documentation of the care provided to the patient excluding any time spent in the performance of separately billed services. JESS Thao [facility] Admission and Anticipated Discharge Date Admission Date: October 12, 2024 Supervising Physician Co-Signing Physician Notes I have personally performed a history and physical examination on the patient. I have reviewed the advance practitioner's documentation, and I agree with, and take responsibility for the plan of care. 84-year-old female admitted secondary to confusion, fever, and presumed sepsis. Stool sample positive for norovirus, and enteroaggregative Escherichia coli. Possible urinary tract infection per urinalysis. Cardiology consultation requested due to atrial fibrillation/flutter with rapid ventricular response. Heart rate improved with titration of beta-caridad therapy. Recommendations: * Discontinue metoprolol to tartrate in favor of Toprol-XL 50 mg twice daily. * No additional digoxin at this time. * Hold diuretic therapy today due to ongoing diarrhea. Reassess volume status/GFR/electrolytes in AM. * Consider restart oral furosemide in next 24-48 hours * No further inpatient cardiac testing or intervention recommended at this time. * Cardiology will sign off. Please call with additional concerns/questions. Isaías Márquez DO, [facility] I spent a total of 25 minutes on the date of service in preparation, delivery, and documentation of the care provided to this patient, excluding any time spent in the performance of separately billed services. Subjective 10/15/2024: Patient seen and examined in follow up today. Feeling well from a cardiac perspective. offers no acute concerns. patient continues with some episodes of diarrhea, no vomiting. Denies chest pain, pressure, palpitations, shortness of breath, PND, pre-syncope, syncope or edema. Labs, vitals, diagnostics, telemetry and documentation reviewed. Telemetry reviewed showing Paced/underlying A-fib/flutter. rates controlled in the 70's. no acute events overnight. Review of Systems Review of Systems: All systems reviewed & are unremarkable except as noted in HPI & below Physical Exam Constitutional: well developed, well nourished and + ill appearing; no acute distress Neck: normal visual inspection and trachea midline Respiratory: normal respiratory effort; no respiratory distress, no labored breathing and no cough Auscultation: + diminished lung sounds (bilateral bases ); no crackles, no rales, no rhonchi and no wheezes Cardiovascular: Rate/Rhythm: + irregularly irregular Heart Sounds: normal S1, normal S2 and + murmur (+1/6 systolic) Vessels: dorsalis pedis pulses present; no JVD Extremities: no edema Skin: no rashes, warm and dry + ecchymosis (noted on right arm) Psychiatric: Orientation: alert, oriented to person, oriented to place and cooperative; + not oriented x 3 Affect: euthymic affect Results & Data Vital Signs (Past 12 Hours) Vital Signs Temp Pulse Pulse Pulse Resp BP Pulse Ox 10/15/24 07:30 36.6 C 75 19 104/62 95 10/15/24 03:15 36.5 C 76 16 100/62 97 10/15/24 01:00 10/14/24 23:13 83 10/14/24 22:53 36.6 C 85 18 100/60 92 Pulse Ox O2 Del Method O2 Del Method 10/15/24 07:30 Room Air 10/15/24 03:15 Room Air 10/15/24 01:00 92 Room Air 10/14/24 23:13 10/14/24 22:53 Room Air Laboratory Results Cardiac Enzymes 10/15/24 Range/Units 05:56 AST 52 H (13-39) U/L CBC 10/15/24 Range/Units 05:56 WBC 8.58 (4.8-10.8) K/ul RBC 3.18 L (4.20-5.40) M/uL Hgb 9.8 L (12.0-16.0) g/dl Hct 30.5 L (37.0-47.0) % Plt Count 147 (130-400) K/uL Neut # (Auto) 5.10 (1.40-6.50) K/uL Lymph # (Auto) 1.53 (1.20-3.40) K/uL [place] # (Auto) 1.19 H (0.11-0.59) K/uL Eos # (Auto) 0.68 H (0.00-0.50) K/uL Baso # (Auto) 0.03 (0.00-0.20) K/uL Comprehensive Metabolic Panel 10/15/24 Range/Units 05:56 Sodium 136 (136-145) mmol/L Potassium 4.0 (3.5-5.1) mmol/L Chloride 110 H (98-107) mmol/L Carbon Dioxide 19 L (21-32) mmol/L BUN 51 H (6-23) mg/dl Creatinine 1.75 H (0.6-1.2) mg/dl Glucose 81 (70-99(Fasting)) mg/dl Calcium 8.4 L (8.6-10.3) mg/dl AST 52 H (13-39) U/L ALT 19 (7-52) U/L Alkaline Phosphatase 149 H (34-104) U/L Total Protein 5.3 L (6.0-8.3) gm/dl Albumin 3.0 L (3.4-5.0) gm/dl Intake and Output 10/14/24 10/15/24 10/15/24 22:59 06:59 14:59 Intake Total 680 / 730 50 / 730 Output Total 276 / 476 200 / 476 Balance 404 / 254 -150 / 254 Intake: Oral 680 / 730 50 / 730 Output: Urine Amount (Catheter) 275 / 475 200 / 475 Temp Sensing Smith 275 / 475 200 / 475 # Bowel Movements Other: Weight 73 kg Weight Measurement Method Built in [facility] (1) Sepsis Sepsis acute organ dysfunction status: unspecified Sepsis type: sepsis due to unspecified organism Qualified Code(s): A41.9 - Sepsis, unspecified organism
--- NOTE | 2024-10-15 11:15 | Hospitalist Progress Note ---
Date of Service October 15, 2024 Assessment & Plan (1) Sepsis: Plan Pt is an 84-year-old female with past medical history significant for diabetes, secondary hyperparathyroidism, CKD stage III, hypercholesterolemia, peripheral vascular disease, obstructive sleep apnea not on CPAP, moderate persistent asthma, COPD, paroxysmal atrial fibrillation, status post watchman left atrial appendage closure device, history of mitral valve clip implantation, pulmonary hypertension, chronic diastolic CHF, history of angiodysplasia of colon with hemorrhage, history of aneurysm of left carotid artery, severe tricuspid regurgitation, history of CAD, Mnire's disease, spinal stenosis, depression, history of endometrial cancer, history of TIA who presented with concern for acute change in her mental status. Sepsis, POA Acute metabolic Encephalopathy Norovirus infection Enteroaggregative E coli Infection Presented with confusion, tachycardia, leukocytosis and soft blood pressures Procalcitonin elevated at 1.5. Lactic acid 1.6 Pt with copious diarrhea Stool culture positive for Norovirus and EAEC respiratory viral panel negative CT abd pelvis noting known prominent paraaortic lymph nodes UA with urine Cx growing bifidobacterium Blood cultures x 2 sets NGTD Continue with Cefepime for 2 more days (5 days total), completed 3 day course of azithromycin GI consulted, appreciate recs IV fluids Pt likely confused in setting of above Continue to monitor Improving Rapid A-fib/a flutter Sick sinus syndrome status post pacemaker Loculated pericardial effusion EKG noting a flutter/a fib Echo with EF 60-65%, LA severely dilated and moderate loculated pericardial effusion Received dose of IV Lopressor in the ER ER discussed with cardiology and loaded with IV digoxin to 250 mcg S/p Watchman procedure Status post mitral valve clip Not on anticoagulation Cardiology consulted, appreciate recs. Recommended/stated the following: "...Discontinue metoprolol to tartrate in favor of Toprol-XL 50 mg twice daily. No additional digoxin at this time. Hold diuretic therapy today due to ongoing diarrhea. Reassess volume status/GFR/electrolytes in AM. Consider restart oral furosemide in next 24-48 hours No further inpatient cardiac testing or intervention recommended at this time..." Improving Consider restart of home diuretic in AM Chronic diastolic CHF Severe tricuspid regurgitation Holding torsemide and potassium supplements Gentle fluids Monitor for volume overload Cardiology on board as above Consider restart of home diuretic in AM Elevated troponin Trops elevated in 50s to 70s before downtrending EKG noting a flutter/a fib Echo with EF 60-65%, LA severely dilated and moderate loculated pericardial effusion Likely demand ischemia Continue to monitor on telemetry CKD stage III Presented with creatinine 1.6 around baseline Continue to monitor Chronic Anemia Hgb at baseline 9-10 range Bleeding lesion on abdomen resolved, re-start hep SQ Continue to monitor H/H Sleep apnea Not using CPAP Will use oxygen Nocturnal pulse oximetry when stable Diabetes Diet controlled Sliding scale HbA1c 6.6 Hypothyroidism Continue Synthroid Hyperlipidemia On statin Peripheral vascular disease On aspirin and statin History of TIA On aspirin and statin Depression On buspirone and sertraline Will hold buspirone for now Chronic pain since hip surgery fentanyl patch in place and oxycodone as patient is drowsy Diet: HH/DMII, low fiber DVT prophylaxis: Heparin subcu restarted SCDs otherwise Dispo: from [facility], bedhold Admission and Anticipated Discharge Date Admission Date: October 12, 2024 Subjective patient was seen sitting up in bed States she is still having episodes of fecal incontinence however they are very few and far in between Denies any chest pain, shortness of breath or palpitations Son called and updated Review of Systems Review of Systems: All systems reviewed & are unremarkable except as noted in Subjective Physical Exam Physical Exam: General: AAOx2 Neuro: AAOx2 HEENT: NC/AT CV: irregular rate and rhythm Resp: no increased effort of breathing Abdomen: Soft, nontender Extremities: No edema in lower extremities bilaterally. Results & Data Results & Data Vital Signs (Past 12 Hours) Vital Signs Temp Pulse Pulse Resp BP Pulse Ox Pulse Ox 10/15/24 07:30 36.6 C 75 19 104/62 95 10/15/24 03:15 36.5 C 76 16 100/62 97 10/15/24 01:00 92 O2 Del Method O2 Del Method 10/15/24 07:30 Room Air 10/15/24 03:15 Room Air 10/15/24 01:00 Room Air Diagnostic Findings Chest X-Ray 10/12/24 19:48 Exam(s): XR CXR 1 VIEW EXAM: XR Chest, 1 View CLINICAL HISTORY: Reason for exam: Sepsis. TECHNIQUE: Frontal view of the chest. COMPARISON: Chest x-ray 10/09/2023 FINDINGS: Lungs: Low lung volumes of pulmonary vascular congestion. Pleural space: No pleural effusion. No pneumothorax. Heart: Cardiomegaly. Tubes, lines and devices: Pacemaker leads in place. IMPRESSION: Low lung volumes of pulmonary vascular congestion. Electronically signed by: Guillaume Roca MD 10/12/24 21:09 PM Abdomen/Pelvis CT 10/12/24 23:32 EXAM: CT abd pelvis wo con CLINICAL HISTORY: n/v, sepsis TECHNIQUE: Non-contrast CT of the abdomen and pelvis was performed, with the following protocol: axial images, and reconstructed coronal and sagittal images. No intravenous contrast was administered. One of the following dose reduction techniques was utilized for this exam: Automated exposure control, adjustment of the mA and/or kV according to patient size, and use of iterative reconstruction. COMPARISON: 05/13/2024 CT abd pelvis. FINDINGS: Abdomen: Liver: Normal in size, shape, and density. No focal lesions, cysts, or masses were identified. Gallbladder and Biliary System: Surgical clips seen in gall bladder fossa. Pancreas: Significant fatty replacement of pancreas likely due to age Spleen: Normal in size, shape, and density. No splenic lesions or masses were identified. Kidneys and Adrenal Glands: Both kidneys are borderline normal in size, shape, and position. Right kidney measures 86 mm and left kidney measures 80 mm. A cortical cyst is identified at the upper pole of the left kidney measuring 42 x 24 mm Few cortical cysts are identified in right kidney largest at the interpolar region measuring 27 x 26 mm Calcific foci are identified in both kidneys likely vascular calcifications, rather than calculi Bilateral perinephric fat stranding Both adrenal glands appear mildly bulky Appendix: The appendix is not separately visualized Pelvis: Urinary Bladder: Urinary bladder is almost empty at the time of examination, with foleys Uterus is not visualized likely due to surgery. No gross abnormality seen in both adnexa Peritoneal and Retroperitoneal Structures: No free fluid or abnormal fluid collections were identified within the abdomen or pelvis. No lymphadenopathy was noted. Moderate atherosclerotic calcifications seen in aorta and iliac arteries. Few prominent lymph nodes are identified in para-aortic location, largest is measuring 11 mm Bowel: The visualized bowel loops are normal in caliber and appearance. No evidence of bowel obstruction or wall thickening. Mild fecal loading of the large bowel loop was seen. Few diverticulae are identified in the sigmoid colon. No features of diverticulitis The suggestion of mild submucosal fat deposition along the ascending colon which was also seen in prior examination Bones and Soft Tissues: Mild to moderate scoliosis was identified and visualized spine with convexity towards right side. Degenerative changes seen in the visualized spine with osteophytes, with mild retrolisthesis seen at all levels of the lumbar spine, with reduced disc heights and intervening vacuum phenomena, and schmorl's node, and multilevel facet arthropathy. Partial compression of the T12 vertebral body, with lucencies and sclerosis along the inferior endplate. Implants are identified in the right proximal femur Chest: On covered sections of the chest, heart size is enlarged with mild pericardial effusion and a partially visualized pacemaker. Patchy groundglass opacification and septal thickening were seen in both lungs. Minimal pleural thickening/trace effusion seen bilaterally, IMPRESSION: 1. No renal tract obstruction on either side. 2. Uncomplicated colonic diverticulosis, these were also present in prior examination. 3. Bilateral renal cortical cysts and, calcific densities likely vascular calcifications, stable. 4. Interval stable bilateral perinephric fat stranding. 5. Redemonstration of prominent para-aortic lymph nodes showing interval progression in number and sizes. 6. Mild interval progression of generalized abdominal fat stranding. 7. Interval stable osseous findings 8. The visualized lung findings show interval progression 9. Minimal pleural thickening/trace effusion seen bilaterally, more evident and present examination 10. Mild progression of pericardial effusion Electronically signed by Randee Hobbs 10-13-2024 01:[address] 10/12/24 23:32 EXAM: CT chest diagnostic wo con CLINICAL HISTORY: aspiration, Sepsis TECHNIQUE: Contiguous axial CT images of the chest were acquired without administration of intravenous contrast. Coronal and sagittal reconstructions were obtained. One of the following dose reduction techniques were utilized for this exam: Automated exposure control, adjustment of the mA and/or kV according to patient size, use of iterative reconstruction. COMPARISON: 01/13/2024, CT chest, and 07/19/2024 CR. FINDINGS: Lungs: Groundglass opacification and septal thickening seen in both lungs No pulmonary nodules or masses are identified. Minimal pleural thickening/trace effusion identified bilaterally Mediastinum: The mediastinum is normal in size and contour. Few prominent lymph nodes are identified in right paratracheal and precarinal location largest in precarinal location measures 10 mm The heart size appears enlarged. Mild to moderate pericardial effusion is present Hilar Structures: The hilar structures appear normal without enlargement or abnormality. Low attenuation of aorta in relation to the interventricular septum Senile calcifications seen A prosthetic valve is identified A dual-chamber pacemaker is identified with leads are appropriately placed The pulmonary trunk is borderline dilated and measures 30 mm Trachea and Main Bronchi: The trachea and main bronchi are patent without evidence of obstruction or abnormality. Chest Wall: The chest wall is unremarkable with no evidence of soft tissue or bony abnormalities. 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 Interval progression of the groundglass opacification and septal thickening seen in both lungs, likely due to pulmonary edema or insufficient inspiration. 2. Interval no gross change in cardiomegaly, however, there is a progression of pericardial effusion. Stable cardiomegaly since prior x-ray. 3. Minimal pleural thickening/trace effusion bilaterally. This was not seen on prior x-ray. 4. Mild progression of the number and size of mediastinal lymph nodes. 5. Low attenuation of aorta in relation to the interventricular septum, likely due to anemia, is more evident and the present examination. 6. Borderline dilated interval stable pulmonary trunk. 7. Interval stable cardiac pacemaker, and prosthetic valve. Electronically signed by Randee Hobbs 10-13-2024 01:34 AM (1) Sepsis Sepsis acute organ dysfunction status: with acute organ dysfunction Sepsis type: sepsis due to unspecified organism Severe sepsis acute organ dysfunction type: unspecified
[2024-10-16 07:42] LABS: Basophils # (auto) 0.02 K/uL (0.00-0.20); Basophils % (auto) 0.3 %; Eosinophils # (auto) 0.69 K/uL (0.00-0.50); Eosinophils % (auto) 10.2 %; Hemoglobin 10.7 g/dl (12.0-16.0); Immature Granulocytes # (auto) 0.05 K/uL (0.01-0.20); Immature Granulocytes % (auto) 0.7 %; Lymphocytes # (auto) 1.25 K/uL (1.20-3.40); Lymphocytes % (auto) 18.4 %; Mean Corpuscular Hemoglobin 30.7 pg (25.0-34.0); Mean Corpuscular Hgb Conc 32.4 g/dL (32.0-36.0); Mean Corpuscular Volume 94.8 fL (80.0-100.0); Mean Platelet Volume 10.9 fL (9.4-12.4); Monocytes # (auto) 0.54 K/uL (0.11-0.59); Neutrophils # (auto) 4.23 K/uL (1.40-6.50); Neutrophils % (auto) 62.4 %; Nucleated RBC # (auto) 0.02 K/uL (0.00-0.12); Nucleated RBC % (auto) 0.3 %; Platelet Count 140 K/uL (130-400); RDW Coefficient of Variation 16.7 % (11.5-14.5); RDW Standard Deviation 58.3 fL (36.4-46.3); Red Blood Count 3.48 M/uL (4.20-5.40); White Blood Count 6.78 K/ul (4.8-10.8)
[2024-10-16 08:09] LABS: Albumin Globulin Ratio 1.5 (0.9-2); Albumin Level 3.2 gm/dl (3.4-5.0); BUN Creatinine Ratio 27.9 (10-20); Bilirubin,Total 0.4 mg/dl (0.2-1.0); Calcium 8.5 mg/dl (8.6-10.3); Creatinine Clr Calc Pharmacy 24.9 ml/min; Globulin 2.2 gm/dl (2.5-4.0); Phosphorus 3.5 mg/dl (2.5-4.9); Potassium 4.1 mmol/L (3.5-5.1); Total Protein 5.4 gm/dl (6.0-8.3)
[2024-10-16] MEDS: TORSEMIDE 10 MG TAB PO SCH (09:41)
--- NOTE | 2024-10-16 12:56 | XRay Report ---
EXAM: Radiograph of the Chest 1 View INDICATION: Increasing cough TECHNIQUE: Frontal view of the chest. COMPARISON: 10/12/2024 FINDINGS: Lungs and pleural spaces: There is persistent but improved diffuse airway thickening. Stable atelectasis in the lung bases. No pleural effusion or pneumothorax. Heart: Stable enlargement and pacing device. Mediastinum: Normal contour. Bones/joints: No fracture, erosion or dislocation. Soft tissues: No abnormality noted. No radiopaque foreign body noted. Upper abdomen: No abnormality noted. IMPRESSION: Persistent but improved bronchitis. No pneumonia. ACT 112: Negative or not required by law. Electronically signed by Yeimi Aponte 10-16-2024 12:56 PM
--- NOTE | 2024-10-16 15:50 | Hospitalist Progress Note ---
Date of Service October 16, 2024 Assessment & Plan (1) Sepsis: Plan Pt is an 84-year-old female with past medical history significant for diabetes, secondary hyperparathyroidism, CKD stage III, hypercholesterolemia, peripheral vascular disease, obstructive sleep apnea not on CPAP, moderate persistent asthma, COPD, paroxysmal atrial fibrillation, status post watchman left atrial appendage closure device, history of mitral valve clip implantation, pulmonary hypertension, chronic diastolic CHF, history of angiodysplasia of colon with hemorrhage, history of aneurysm of left carotid artery, severe tricuspid regurgitation, history of CAD, Mnire's disease, spinal stenosis, depression, history of endometrial cancer, history of TIA who presented with concern for acute change in her mental status. Sepsis, POA Acute metabolic Encephalopathy Norovirus infection Enteroaggregative E coli Infection Presented with confusion, tachycardia, leukocytosis and soft blood pressures Procalcitonin elevated at 1.5. Lactic acid 1.6 Pt with copious diarrhea Stool culture positive for Norovirus and EAEC respiratory viral panel negative CT abd pelvis noting known prominent paraaortic lymph nodes UA with urine Cx growing bifidobacterium Blood cultures x 2 sets NGTD Treated with Cefepime and completed 3 day course of azithromycin GI consulted, appreciate recs IV fluids Pt likely confused in setting of above Continue to monitor Improving Rapid A-fib/a flutter Sick sinus syndrome status post pacemaker Loculated pericardial effusion EKG noting a flutter/a fib Echo with EF 60-65%, LA severely dilated and moderate loculated pericardial effusion Received dose of IV Lopressor in the ER ER discussed with cardiology and loaded with IV digoxin to 250 mcg S/p Watchman procedure Status post mitral valve clip Not on anticoagulation Cardiology consulted, appreciate recs. Recommended/stated the following: "...Discontinue metoprolol to tartrate in favor of Toprol-XL 50 mg twice daily. No additional digoxin at this time. Hold diuretic therapy today due to ongoing diarrhea. Reassess volume status/GFR/electrolytes in AM. Consider restart oral furosemide in next 24-48 hours No further inpatient cardiac testing or intervention recommended at this time..." Improving Restarted on low dose torsemide 10mg n 10/16/24 Chronic diastolic CHF Severe tricuspid regurgitation Holding torsemide and potassium supplements Gentle fluids Monitor for volume overload Cardiology on board as above Consider restart of home diuretic in AM Elevated troponin Trops elevated in 50s to 70s before downtrending EKG noting a flutter/a fib Echo with EF 60-65%, LA severely dilated and moderate loculated pericardial effusion Likely demand ischemia Continue to monitor on telemetry Bronchitis Pt with increasing cough once more on 10/16 Chest XRAY noting bronchitis changes, no pneumonia or fluid Restarted abx, doxycycline for 5 more days CKD stage III Presented with creatinine 1.6 around baseline Continue to monitor Chronic Anemia Hgb at baseline 9-10 range Bleeding lesion on abdomen resolved, re-start hep SQ Continue to monitor H/H Sleep apnea Not using CPAP Will use oxygen Nocturnal pulse oximetry when stable Diabetes Diet controlled Sliding scale HbA1c 6.6 Hypothyroidism Continue Synthroid Hyperlipidemia On statin Peripheral vascular disease On aspirin and statin History of TIA On aspirin and statin Depression On buspirone and sertraline Will hold buspirone for now Chronic pain since hip surgery fentanyl patch in place and oxycodone as patient is drowsy Diet: HH/DMII, low fiber DVT prophylaxis: Heparin subcu restarted SCDs otherwise Dispo: from [facility], bedhold Admission and Anticipated Discharge Date Admission Date: October 12, 2024 Subjective pt was seen laying in bed, her son Bright was on the phone She notes improvement in the diarrhea, less incontinence however notes an increased cough Review of Systems Review of Systems: All systems reviewed & are unremarkable except as noted in Subjective Physical Exam Physical Exam: General: AAOx2 Neuro: AAOx2 HEENT: NC/AT CV: irregular rate and rhythm Resp: no increased effort of breathing Abdomen: Soft, nontender Extremities: No edema in lower extremities bilaterally. Results & Data Results & Data Vital Signs (Past 12 Hours) Vital Signs Temp Pulse Pulse Resp BP Pulse Ox O2 Del Method 10/16/24 15:31 36.6 C 76 19 111/64 91 Room Air 10/16/24 14:57 68 10/16/24 11:27 36.5 C 67 19 110/62 97 Room Air 10/16/24 11:12 Room Air 10/16/24 07:35 36.9 C 65 19 103/59 L 95 Room Air 10/16/24 07:00 72 (1) Sepsis Sepsis acute organ dysfunction status: with acute organ dysfunction Sepsis type: sepsis due to unspecified organism Severe sepsis acute organ dysfunction type: unspecified
[2024-10-16] MEDS: DOXYCYCLINE HYCLATE 100 MG CAP PO SCH (21:13)
[2024-10-17] MEDS ORDERED: MELATONIN 3 MG TAB PO PRN (01:15)
[2024-10-17] MEDS: MELATONIN 3 MG TAB PO STA (01:48)
[2024-10-17 07:25] LABS: Basophils # (auto) 0.03 K/uL (0.00-0.20); Basophils % (auto) 0.4 %; Eosinophils % (auto) 7.9 %; Hematocrit (blood only) 31.9 % (37.0-47.0); Hemoglobin 10.3 g/dl (12.0-16.0); Immature Granulocytes # (auto) 0.05 K/uL (0.01-0.20); Immature Granulocytes % (auto) 0.7 %; Lymphocytes # (auto) 1.53 K/uL (1.20-3.40); Lymphocytes % (auto) 20.1 %; Mean Corpuscular Hemoglobin 30.5 pg (25.0-34.0); Mean Corpuscular Hgb Conc 32.3 g/dL (32.0-36.0); Mean Corpuscular Volume 94.4 fL (80.0-100.0); Mean Platelet Volume 10.5 fL (9.4-12.4); Monocytes # (auto) 0.81 K/uL (0.11-0.59); Monocytes % (auto) 10.6 %; Neutrophils # (auto) 4.59 K/uL (1.40-6.50); Neutrophils % (auto) 60.3 %; Platelet Count 143 K/uL (130-400); RDW Coefficient of Variation 16.8 % (11.5-14.5); RDW Standard Deviation 57.7 fL (36.4-46.3); Red Blood Count 3.38 M/uL (4.20-5.40); White Blood Count 7.61 K/ul (4.8-10.8)
[2024-10-17 07:36] VITALS: RESP 18; O2SAT 95
[2024-10-17 07:47] LABS: Albumin Globulin Ratio 1.5 (0.9-2); Albumin Level 3.4 gm/dl (3.4-5.0); BUN Creatinine Ratio 32.4 (10-20); Bilirubin,Total 0.5 mg/dl (0.2-1.0); Calcium 8.8 mg/dl (8.6-10.3); Creatinine Clr Calc Pharmacy 28.2 ml/min; Globulin 2.3 gm/dl (2.5-4.0); Magnesium 1.9 mg/dl (1.7-2.4); Phosphorus 3.2 mg/dl (2.5-4.9); Potassium 4.1 mmol/L (3.5-5.1); Total Protein 5.7 gm/dl (6.0-8.3)
[2024-10-17] MEDS: TORSEMIDE 10 MG TAB PO ONE (10:27)
[2024-10-17 11:39] VITALS: BP 108/67; TEMP 97.7
--- NOTE | 2024-10-17 14:03 | Discharge Summary ---
Discharge Summary Date of Service October 17, 2024 Principal Dx & Hospital Course #1 = Principal Diagnosis (1) Sepsis: Plan Pt is an 84-year-old female with past medical history significant for diabetes, secondary hyperparathyroidism, CKD stage III, hypercholesterolemia, peripheral vascular disease, obstructive sleep apnea not on CPAP, moderate persistent asthma, COPD, paroxysmal atrial fibrillation, status post watchman left atrial appendage closure device, history of mitral valve clip implantation, pulmonary hypertension, chronic diastolic CHF, history of angiodysplasia of colon with hemorrhage, history of aneurysm of left carotid artery, severe tricuspid regurgitation, history of CAD, Mnire's disease, spinal stenosis, depression, history of endometrial cancer, history of TIA who presented with concern for acute change in her mental status. Sepsis, POA Acute metabolic Encephalopathy Norovirus infection Enteroaggregative E coli Infection Presented with confusion, tachycardia, leukocytosis and soft blood pressures Procalcitonin elevated at 1.5. Lactic acid 1.6 Pt with copious diarrhea Stool culture positive for Norovirus and EAEC respiratory viral panel negative CT abd pelvis noting known prominent paraaortic lymph nodes UA with urine Cx growing bifidobacterium (likely contaminant) Blood cultures x 2 sets NGTD Treated with Cefepime and completed 3 day course of azithromycin GI consulted, appreciate recs IV fluids Pt was likely confused in setting of above Improved. On the day of discharge, pt was back to her baseline mental status, diarrhea had improved significantly. She did note she had an episode of nausea that subsequently resolved. Was tolerating a diet. Discharged back to [facility] where she was a bedhold with prn zofran. Close PCP followup Rapid A-fib/a flutter Sick sinus syndrome status post pacemaker Loculated pericardial effusion EKG noting a flutter/a fib Echo with EF 60-65%, LA severely dilated and moderate loculated pericardial effusion Received dose of IV Lopressor in the ER ER discussed with cardiology and loaded with IV digoxin to 250 mcg S/p Watchman procedure Status post mitral valve clip Not on anticoagulation Cardiology consulted, appreciate recs. Recommended/stated the following: "...Discontinue metoprolol to tartrate in favor of Toprol-XL 50 mg twice daily. No additional digoxin at this time. Hold diuretic therapy today due to ongoing diarrhea. Reassess volume status/GFR/electrolytes in AM. Consider restart oral furosemide in next 24-48 hours No further inpatient cardiac testing or intervention recommended at this time..." On the day of discharge her heart rates were controlled. She was restarted on torsemide the day before. She was advised to resume home doses of torsemide on discharge. Discharged with Toprol XL 50mg BID with close PCP and cardiology followup. Bronchitis Pt with increasing cough once more on 10/16 Chest XRAY noting bronchitis changes, no pneumonia or fluid Restarted abx, doxycycline for 4 more days after discharge Chronic diastolic CHF Severe tricuspid regurgitation Held torsemide and potassium supplements in the setting of her acute gastroenteritis with diarrhea Gentle fluids Monitored for volume overload Cardiology on board as above She was restarted on torsemide the day before. On the day of discharge, she was advised to resume home doses of torsemide on discharge. Elevated troponin Trops elevated in 50s to 70s before downtrending EKG noting a flutter/a fib Echo with EF 60-65%, LA severely dilated and moderate loculated pericardial effusion Likely demand ischemia CKD stage III Presented with creatinine 1.6 around baseline Continue to monitor Chronic Anemia Hgb at baseline 9-10 range Continue to monitor H/H Sleep apnea Not using CPAP Will use oxygen Nocturnal pulse oximetry when stable Diabetes Diet controlled Sliding scale HbA1c 6.6 Hypothyroidism Continue Synthroid Hyperlipidemia On statin Peripheral vascular disease On aspirin and statin History of TIA On aspirin and statin Depression On buspirone and sertraline Chronic pain since hip surgery fentanyl patch in place and prn oxycodone Notes For Next Care Provider Medication Changes From Visit Doxycycline 100mg BID x4 days with Florastor probiotic Metoprolol succinate 50mg BID Zofran prn Admission HPI Per Admitting Provider 84-year-old female with past medical history significant for diabetes, secondary hyperparathyroidism, CKD stage III, hypercholesterolemia, peripheral vascular disease, obstructive sleep apnea not on CPAP, moderate persistent asthma, COPD, paroxysmal atrial fibrillation, status post watchman left atrial appendage closure device, history of mitral valve clip implantation, pulmonary hypertension, chronic diastolic CHF, history of angiodysplasia of colon with hemorrhage, history of aneurysm of left carotid artery, severe tricuspid regurgitation, history of CAD, Mnire's disease, spinal stenosis, depression, history of endometrial cancer, history of TIA, currently living at [facility] was brought in because of confusion. As per son patient today woke up with nausea and vomited and she became confused ,delirious which became worse as the day progressed and was brought in here. In the ER she was tachycardic and was having temp spike. Blood pressure soft. WBC 17. Procalcitonin 1.5. UA positive for leukocyte esterase but bacteria negative. Respiratory bio fire negative. Chest x-ray low lung volumes. Patient currently is drowsy. Can tell her name. Knows that she in the hospital. Knows her age. Can tell that this is September but could not tell current year. Denies any chest pain. Denies abdominal pain. Complaints of neck pain arm pain and leg pains. Could not get much history from the patient currently.As per son patient is generally alert and oriented. She is mostly wheelchair-bound since hip fracture in April and she sometimes can ambulate with a walker as per son. Patient had right femur fracture fall and status post intertrochanteric nail in April 2024 and postop course was complicated by postoperative blood loss anemia hypotension TIFFANY, A-fib with RVR in the setting of COPD . And she was again admitted in 07/15/2024 and was discharged on 07/27/2024 and during this admission she had MSSA bacteremia, UTI pneumonia, human metapneumovirus, COPD exacerbation, persistent rapid A-fib and TIFFANY with creatinine peaking up to 3 and metabolic encephalopathy. During that admission her torsemide dose was adjusted. Urine culture positive for E. coli. She did okay and was [facility]. Past medical history. As mentioned above Past surgical history. Colonoscopy. Left and right heart catheterization. Cystoscopy, EGD. Robotic laparoscopic hysterectomy with removal of tubes and ovaries. Laparoscopic cholecystectomy. Ligation of oviducts. Neck spine fusion surgery. Percutaneous closure of left atrial appendage implant. Tonsillectomy. Right hip fracture repair. Left ruptured rotator cuff repair. Sinus surgery. Transcatheter mitral valve repair bilateral. Social history. Quit smoking in 1978. No alcohol use. No drug use. Family history. Brother had brain and lung cancer. Father had diabetes. Mother had glaucoma. Parkinson's. Maternal grandmother had stomach cancer. Admission Exam Per Admitting Provider General- Drowsy Head- atraumatic Eyes- PERRL. ENT- oropharynx clear Neck- supple, no JVD. Lungs- clear to auscultation no wheezing or crackles Heart- irregular rhythm;Tachycardia no murmur, no gallop. Abdomen- normal bowel sounds, soft, nontender, no distension. Extremities- trace pretibial edema present , no erythema seen Neuro- Drowsy oriented x 2; PERRL, no facial palsy; no dysarthria; moves extremities Discharge Exam General: AAOx2 Neuro: AAOx2 HEENT: NC/AT CV: irregular rate and rhythm Resp: no increased effort of breathing Abdomen: Soft, nontender Extremities: No edema in lower extremities bilaterally. Updated Medication List Medication Instructions Recorded Confirmed Type montelukast 10 mg tablet 10 mg PO PM 04/08/19 10/12/24 History atorvastatin 20 mg tablet 20 mg PO QPM 11/26/21 10/12/24 History levalbuterol tartrate 45 1 puff inhalation Q4H PRN 08/07/22 10/12/24 History mcg/actuation aerosol inhaler Shortness Of Breath Or Wheezing (Xopenex HFA) ipratropium bromide 21 mcg (0.03 2 spray intranasal DAILY PRN 12/06/22 10/12/24 History %) nasal spray rhinorrhea allopurinol 300 mg tablet 300 mg PO HS 08/14/23 10/12/24 History levothyroxine 175 mcg tablet 175 mcg PO DAILYBB 03/21/24 10/12/24 History buspirone 5 mg tablet 5 mg PO AMHS 05/13/24 10/12/24 History acetaminophen 500 mg tablet 500 mg PO Q8 PRN Fever Or Pain 07/15/24 10/12/24 History aspirin 81 mg tablet,delayed 81 mg PO QAM 07/15/24 10/12/24 History release ferrous sulfate 325 mg (65 mg 325 mg PO QAM 07/15/24 10/12/24 History iron) tablet,delayed release glycopyrrolate 9 mcg-formoterol 2 puff inhalation BID 07/15/24 10/12/24 History 4.8 mcg HFA aerosol inhaler (Bevespi Aerosphere) oxycodone 5 mg tablet 5 mg PO Q6H PRN PAIN 9-10 07/15/24 10/12/24 History pantoprazole 40 mg tablet,delayed 40 mg PO AMHS 07/15/24 10/12/24 History release sertraline 150 mg capsule 150 mg PO QAM 07/15/24 10/12/24 History potassium chloride 10 mEq 10 meq PO UD #20 tabs 07/27/24 10/12/24 Rx tablet,extended release carbamide peroxide 6.5 % ear drops 10 drp OTR HS 10/12/24 10/12/24 History cholecalciferol (vitamin D3) 100 100 mcg PO QAM 10/12/24 10/12/24 History mcg (4,000 unit) tablet diclofenac sodium 1 % topical gel 4 g topical QID 10/12/24 10/12/24 History (Voltaren Arthritis Pain) fentanyl 12 mcg/hr transdermal 1 patch transdermal [id number] 10/12/24 10/12/24 History patch melatonin 10 mg tablet 10 mg PO HS 10/12/24 10/12/24 History ondansetron 4 mg disintegrating 4 mg PO Q6H PRN Nausea And Vomiting 10/12/24 10/12/24 History tablet potassium chloride 10 mEq 10 meq PO UD 10/12/24 10/12/24 History tablet,extended release promethazine 25 mg/mL injection 12.5 mg IM Q8 PRN NAUESA/VOMITING 10/12/24 10/12/24 History solution saliva stimulant comb. no.3 2 spray mucous membrane .EVERY 1 10/12/24 10/12/24 History (Biotene Moisturizing Mouth HOUR PRN Dry Mouth mucosal spray) torsemide 10 mg tablet 30 mg PO UD 10/12/24 10/12/24 History torsemide 40 mg tablet 40 mg PO UD 10/12/24 10/12/24 History Saccharomyces boulardii 250 mg 250 mg PO BID #60 caps 10/17/24 Rx capsule (Florastor) doxycycline hyclate 100 mg capsule 100 mg PO BID #8 caps 10/17/24 Rx metoprolol succinate 50 mg 50 mg PO BID #60 tabs 10/17/24 Rx tablet,extended release 24 hr ondansetron 4 mg disintegrating 4 mg PO Q8H 4 days #12 tabs 10/17/24 Rx tablet Hospital Stay Data Consultations 10/12/24 21:32 ED Decision to Admit Stat 10/13/24 08:00 Consult Cardiology Routine 10/13/24 18:40 Consult Gastroenterology Routine Diagnostic Imagining Performed 10/12/24 23:32 CT Abd and Pelvis [CT abd pelvis wo con] Urgent CT chest diagnostic wo con Urgent Chest X-Ray 10/12/24 19:48 Exam(s): XR CXR 1 VIEW EXAM: XR Chest, 1 View CLINICAL HISTORY: Reason for exam: Sepsis. TECHNIQUE: Frontal view of the chest. COMPARISON: Chest x-ray 10/09/2023 FINDINGS: Lungs: Low lung volumes of pulmonary vascular congestion. Pleural space: No pleural effusion. No pneumothorax. Heart: Cardiomegaly. Tubes, lines and devices: Pacemaker leads in place. IMPRESSION: Low lung volumes of pulmonary vascular congestion. Electronically signed by: Guillaume Roca MD 10/12/24 21:09 PM Abdomen/Pelvis CT 10/12/24 23:32 EXAM: CT abd pelvis wo con CLINICAL HISTORY: n/v, sepsis TECHNIQUE: Non-contrast CT of the abdomen and pelvis was performed, with the following protocol: axial images, and reconstructed coronal and sagittal images. No intravenous contrast was administered. One of the following dose reduction techniques was utilized for this exam: Automated exposure control, adjustment of the mA and/or kV according to patient size, and use of iterative reconstruction. COMPARISON: 05/13/2024 CT abd pelvis. FINDINGS: Abdomen: Liver: Normal in size, shape, and density. No focal lesions, cysts, or masses were identified. Gallbladder and Biliary System: Surgical clips seen in gall bladder fossa. Pancreas: Significant fatty replacement of pancreas likely due to age Spleen: Normal in size, shape, and density. No splenic lesions or masses were identified. Kidneys and Adrenal Glands: Both kidneys are borderline normal in size, shape, and position. Right kidney measures 86 mm and left kidney measures 80 mm. A cortical cyst is identified at the upper pole of the left kidney measuring 42 x 24 mm Few cortical cysts are identified in right kidney largest at the interpolar region measuring 27 x 26 mm Calcific foci are identified in both kidneys likely vascular calcifications, rather than calculi Bilateral perinephric fat stranding Both adrenal glands appear mildly bulky Appendix: The appendix is not separately visualized Pelvis: Urinary Bladder: Urinary bladder is almost empty at the time of examination, with foleys Uterus is not visualized likely due to surgery. No gross abnormality seen in both adnexa Peritoneal and Retroperitoneal Structures: No free fluid or abnormal fluid collections were identified within the abdomen or pelvis. No lymphadenopathy was noted. Moderate atherosclerotic calcifications seen in aorta and iliac arteries. Few prominent lymph nodes are identified in para-aortic location, largest is measuring 11 mm Bowel: The visualized bowel loops are normal in caliber and appearance. No evidence of bowel obstruction or wall thickening. Mild fecal loading of the large bowel loop was seen. Few diverticulae are identified in the sigmoid colon. No features of diverticulitis The suggestion of mild submucosal fat deposition along the ascending colon which was also seen in prior examination Bones and Soft Tissues: Mild to moderate scoliosis was identified and visualized spine with convexity towards right side. Degenerative changes seen in the visualized spine with osteophytes, with mild retrolisthesis seen at all levels of the lumbar spine, with reduced disc heights and intervening vacuum phenomena, and schmorl's node, and multilevel facet arthropathy. Partial compression of the T12 vertebral body, with lucencies and sclerosis along the inferior endplate. Implants are identified in the right proximal femur Chest: On covered sections of the chest, heart size is enlarged with mild pericardial effusion and a partially visualized pacemaker. Patchy groundglass opacification and septal thickening were seen in both lungs. Minimal pleural thickening/trace effusion seen bilaterally, IMPRESSION: 1. No renal tract obstruction on either side. 2. Uncomplicated colonic diverticulosis, these were also present in prior examination. 3. Bilateral renal cortical cysts and, calcific densities likely vascular calcifications, stable. 4. Interval stable bilateral perinephric fat stranding. 5. Redemonstration of prominent para-aortic lymph nodes showing interval progression in number and sizes. 6. Mild interval progression of generalized abdominal fat stranding. 7. Interval stable osseous findings 8. The visualized lung findings show interval progression 9. Minimal pleural thickening/trace effusion seen bilaterally, more evident and present examination 10. Mild progression of pericardial effusion Electronically signed by Randee Hobbs 10-13-2024 01:[address] 10/12/24 23:32 EXAM: CT chest diagnostic wo con CLINICAL HISTORY: aspiration, Sepsis TECHNIQUE: Contiguous axial CT images of the chest were acquired without administration of intravenous contrast. Coronal and sagittal reconstructions were obtained. One of the following dose reduction techniques were utilized for this exam: Automated exposure control, adjustment of the mA and/or kV according to patient size, use of iterative reconstruction. COMPARISON: 01/13/2024, CT chest, and 07/19/2024 CR. FINDINGS: Lungs: Groundglass opacification and septal thickening seen in both lungs No pulmonary nodules or masses are identified. Minimal pleural thickening/trace effusion identified bilaterally Mediastinum: The mediastinum is normal in size and contour. Few prominent lymph nodes are identified in right paratracheal and precarinal location largest in precarinal location measures 10 mm The heart size appears enlarged. Mild to moderate pericardial effusion is present Hilar Structures: The hilar structures appear normal without enlargement or abnormality. Low attenuation of aorta in relation to the interventricular septum Senile calcifications seen A prosthetic valve is identified A dual-chamber pacemaker is identified with leads are appropriately placed The pulmonary trunk is borderline dilated and measures 30 mm Trachea and Main Bronchi: The trachea and main bronchi are patent without evidence of obstruction or abnormality. Chest Wall: The chest wall is unremarkable with no evidence of soft tissue or bony abnormalities. 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 Interval progression of the groundglass opacification and septal thickening seen in both lungs, likely due to pulmonary edema or insufficient inspiration. 2. Interval no gross change in cardiomegaly, however, there is a progression of pericardial effusion. Stable cardiomegaly since prior x-ray. 3. Minimal pleural thickening/trace effusion bilaterally. This was not seen on prior x-ray. 4. Mild progression of the number and size of mediastinal lymph nodes. 5. Low attenuation of aorta in relation to the interventricular septum, likely due to anemia, is more evident and the present examination. 6. Borderline dilated interval stable pulmonary trunk. 7. Interval stable cardiac pacemaker, and prosthetic valve. Electronically signed by Randee Hobbs 10-13-2024 01:34 AM Chest X-Ray 10/16/24 12:19 EXAM: Radiograph of the Chest 1 View INDICATION: Increasing cough TECHNIQUE: Frontal view of the chest. COMPARISON: 10/12/2024 FINDINGS: Lungs and pleural spaces: There is persistent but improved diffuse airway thickening. Stable atelectasis in the lung bases. No pleural effusion or pneumothorax. Heart: Stable enlargement and pacing device. Mediastinum: Normal contour. Bones/joints: No fracture, erosion or dislocation. Soft tissues: No abnormality noted. No radiopaque foreign body noted. Upper abdomen: No abnormality noted. IMPRESSION: Persistent but improved bronchitis. No pneumonia. ACT 112: Negative or not required by law. Electronically signed by Yeimi Aponte 10-16-2024 12:56 PM Pending Results Patient Have Any Pending Studies at Discharge: No Discharge Instructions Given to Patient (Per Discharging Provider) Mrs Barakat, You were admitted and treated for sepsis in the setting of an acute gastroenteritis infection with Norovirus and E coli. Your symptoms have improved from that aspect. We continue to treat you for an acute bronchitis with the medication doxycycline. Please take it for an additional 4 days with the probiotics prescribed. Your nausea can be related to the doxycycline or in the setting of the gastroenteritis. Please continue with the medication zofran/ondansetron as needed to help. You were also seen by the telephonic case manager for your atrial flutter. Please continue with the metoprolol succinate 50mg twice a day that they recommend to help. You can restart your home torsemide at the regular dose/schedule once more. Please keep close follow up with your primary care provider and [employer] after discharge. Please do not hesitate to come back to the emergency room if your symptoms worsen or return. It was a pleasure taking care of you while you were here. Total Time Total Time Spent Total Time Spent (In Minutes): 60
[2024-10-17 14:19] VITALS: PULSE 73
[2024-10-18] MEDS ORDERED: TORSEMIDE 20 MG TAB PO SCH (09:00)
== END 2024-10-17 14:52 | DRG 871 ==
LOC: ED 19:15 → 2S 23:31